=== PATIENT | male | born 1945 | race Caucasian/White ===

== ENCOUNTER → 2017-07-07 08:03 | Outpatient (CLI) | payer MEDICARE, OTHER, SELFPAY ==
--- NOTE | 2017-07-07 13:31 | NEURO ---
NCS and/or EMG Patient Report Ordering Doctor: Tunde Beard DATE OF SERVICE: 07/07/17 Ignacio Barron is a 72-year-old male presents for electrodiagnostic testing of the right upper limb. He has chief complaint of pain and numbness around the right wrist and hand. Letter diagnostic findings: On nerve conduction study, right median motor nerve demonstrates normal distal latency, amplitude and conduction velocity. Normal right ulnar motor response, including flexion across the elbow. Normal right ulnar and median F waves. Normal sensory responses are noted. On needle EMG, all muscles tested in the right upper limb show no evidence of denervation with normal motor unit action potentials. Electrodiagnostic impression: This is a normal study of the right upper limb. There is no electrodiagnostic evidence for peripheral neuropathy, including carpal tunnel or cubital tunnel syndrome. There is no electrodiagnostic evidence for cervical radiculopathy. If there are any further questions, please do not hesitate to contact me.
== END ==
PROVIDERS: Family Provider Preventive Medicine Occupational Medicine; PCP Preventive Medicine Occupational Medicine; Visit Provider Preventive Medicine Occupational Medicine
DX: G56.01 Carpal tunnel syndrome, right upper limb (principal); M79.601 Pain in right arm; M25.541 Pain in joints of right hand; R20.2 Paresthesia of skin; R20.0 Anesthesia of skin
CPT/HCPCS: 95886; 95909

== ENCOUNTER → 2017-10-25 11:52 | Outpatient (CLI) | payer MEDICARE, OTHER, SELFPAY ==
[2017-10-25 14:16] LABS: Absolute Neutrophil Count 4.1 X10^3/uL (2.0-7.7); Basophil# 0.03 X10^3/uL; Basophil% 0.5 % (0-1); Eosinophil# 0.09 X10^3/uL; Eosinophils% 1.6 % (0-5); Hematocrit 40.7 % (40-54); Hemoglobin 13.3 g/dl (13.0-16.5); Lymphocyte % 17.8 % (19-41); Mean Corp Hgb Conc 32.7 g/gl (32-36); Mean Corpuscular Hgb 29.8 pg (27.0-32.0); Mean Corpuscular Volume 91.1 fL (80-94); Mean Platelet Vol. 10.8 fl (6.2-12.0); Monocyte# 0.46 X10^3/uL; Monocyte% 8.2 % (0-10); Neutrophil # 4.05 X10^3/uL (2.7-7.7); Neutrophil % 71.9 % (47-70); POSITIVE COUNT NO; POSITIVE DIFFERENTIAL NO; POSITIVE MORPHOLOGY NO; Platelet Count 170 K/mm3 (150-450); RBC Distribution Width CV 13.8 % (11.6-14.6); RBC Distribution Width SD 45.5 fl (35.1-43.9); Red Blood Count 4.47 M/mm3 (4.6-6.2); White Blood Count 5.6 K/mm3 (4.4-11.0)
[2017-10-25 14:21] LABS: Erythrocyte Sedimentation Rate 7 mm/hr (0-20)
[2017-10-25 14:25] LABS: AST(SGOT) 21 U/L (15-37); Alanine Aminotransfer ALT/SGPT 33 U/L (16-61); Alkaline Phosphatase 75 U/L (45-117); Anion Gap 9 (5-15); BUN 23 mg/dL (7-18); BUN/Creat Ratio 19.2 RATIO (10-20); Calcium,Total 9.1 mg/dL (8.5-10.1); Chloride 107 mmol/L (98-107); EST Glomerular Filtration Rate 63 mL/min (>60); Est Glom Filt Rate - Afr Amer 77 mL/min (>60); Globulin 3.9 g/dL (2.2-4.2); Glucose 93 mg/dL (74-106); Potassium 3.9 mmol/L (3.5-5.1); Protein, Total 7.9 g/dL (6.4-8.2); Rheumatoid Factor < 10.0 IU/mL (<15); Sodium Level 144 mmol/L (136-145)
[2017-10-27 12:07] LABS: ANTINUCLEAR ANTIBODIES DIRECT Positive (Negative)
[2017-10-29 11:23] LABS: CCP IgG Antibodies 6 units (0-19); HEPATITIS B SURFACE AG Negative (Negative); HLA B27 Negative (.); Hep B Surface Antibodies Non Reactive (.); Hep C Antibodies <0.1 s/co ratio (0.0-0.9)
== END ==
PROVIDERS: Family Provider Preventive Medicine Occupational Medicine; PCP Preventive Medicine Occupational Medicine; Visit Provider Internal Medicine Rheumatology
DX: M06.4 Inflammatory polyarthropathy (principal)
CPT/HCPCS: 36415; 72170; 80053; 81374; 85025; 85652; 86038; 86140; 86200; 86431; 86706; 86803; 87340

== ENCOUNTER → 2017-11-05 13:04 | Outpatient (CLI) | payer MEDICARE, OTHER, SELFPAY ==
[2017-11-05 14:18] LABS: Color, Urine Yellow (Yellow); Glucose, Dipstick Normal (Normal); Ketone-Dipstick Negative (Negative); Leukocyte Esterase-Dipstick 500 /ul (Negative); Nitrite-Dipstick Negative (Negative); Occult Blood-Urine 50 /ul (Negative); Protein-Dipstick 30 mg/dl (Negative); Specific Gravity, Urine 1.015 (1.002-1.030); Urine Bilirubin Dipstick Negative (Negative); Urine Clarity Sl. Cloudy (Clear); Urine Urobilinogen Normal (Normal)
[2017-11-05 14:31] LABS: Protein, Urine (Random) 32.3 mg/dL (<11.9); Protein:Creat Ratio 432 mg/g CRE (0-200)
[2017-11-06 08:55] LABS: Complement C3 149 mg/dL (82-167)
[2017-11-08 22:08] LABS: Anti-Jo <0.2 AI (0.0-0.9); Anti-Scleroderma-70 AB <0.2 AI (0.0-0.9); SJOGREN'S Anti-SS-A test < 0.2 AI (0.0-0.9); SJOGREN'S Anti-SS-B test < 0.2 AI (0.0-0.9); Smith Ab <0.2 AI (0.0-0.9)
[2017-11-09 10:30] LABS: Anti-Centromere B Ab <0.2 AI (0.0-0.9); Anti-dsDNA Ab 5 IU/mL (0-9)
== END ==
PROVIDERS: Family Provider Preventive Medicine Occupational Medicine; PCP Preventive Medicine Occupational Medicine; Visit Provider Internal Medicine Rheumatology
DX: M06.4 Inflammatory polyarthropathy (principal); R76.8 Other specified abnormal immunological findings in serum; M21.40 Flat foot [pes planus] (acquired), unspecified foot
CPT/HCPCS: 36415; 81002; 82570; 84156; 86160; 86225; 86235

== ENCOUNTER → 2018-02-21 08:45 | Outpatient (CLI) | payer MEDICARE, OTHER, SELFPAY ==
--- NOTE | 2018-02-21 08:48 | AAVD_ITS ---
Reason For Study: AAA Aorta Measurements Aorta Doppler Measurements Proximal aorta measures2.0 x 2.0cm. in cross- Peak systolic flow velocities within the proximal sectional axis. aorta measure 70.2 cm/sec. Proximal aorta measures2.0cm. in longitudinal Peak systolic flow velocities within the mid aorta axis. measure 74.8 cm/sec. Mid aorta measures1.7 x 1.8cm. in cross-sectional Peak systolic flow velocities within the distal axis. aorta measure 66.6 cm/sec. Mid aorta measures1.7cm. in longitudinal axis. Distal aorta measures1.8 x 1.8cm. in cross- sectional axis. Distal aorta measures1.7cm. in longitudinal axis. Left Iliac Artery Left iliac artery measures 1.0 cm. in the longitudinal axis. Left iliac artery measures 1.0 x 1.1 cm. in the cross-sectional axis. Peak systolic velocity in the left iliac artery measures 90.3 cm/sec. Right Iliac Artery Right iliac artery measures 1.1 cm. in the longitudinal axis. Right iliac artery measures 1.1 x 1.0 cm. in the cross-sectional axis. Peak systolic velocity in the right iliac artery measures 106.0 cm/sec. Procedure Aorta IVC Iliac vasculature or bypass grafts [id number]. Technically difficult due to bowel gas. Exam performed in department. Interpretation Summary The dimensions of the intra-abdominal aorta are normal, without evidence of aneurysmal dilatation. The iliac arteries are also normal in size bilaterally. The intra-abdominal aorta and iliac arteries are patent, demonstrating normal, pulsatile arterial flow and peak systolic velocities. Ordering Physician: Lulu Moreno Referring Physician: Lulu Moreno Performed By: Shweta Wetzel RVT
== END ==
PROVIDERS: Family Provider Preventive Medicine Occupational Medicine; PCP Preventive Medicine Occupational Medicine; Referring Provider Physician Assistant Medical; Visit Provider Physician Assistant Medical
DX: I10 Essential (primary) hypertension (principal); I71.4 Abdominal aortic aneurysm, without rupture
CPT/HCPCS: 93978

== ENCOUNTER → 2018-04-07 11:58 | Outpatient (CLI) | payer MEDICARE, OTHER, SELFPAY ==
[2018-02-14 09:37] VITALS: BMI 35.6
[2018-04-07 13:20] LABS: Anion Gap 6 (5-15); BUN 17 mg/dL (7-18); BUN/Creat Ratio 15.2 RATIO (10-20); Chloride 108 mmol/L (98-107); Creatinine, Serum 1.12 mg/dL (0.70-1.30); EST Glomerular Filtration Rate 69 mL/min (>60); Est Glom Filt Rate - Afr Amer 83 mL/min (>60); Glucose 80 mg/dL (74-106); Potassium 3.6 mmol/L (3.5-5.1); Sodium Level 142 mmol/L (136-145)
== END ==
PROVIDERS: Family Provider Preventive Medicine Occupational Medicine; PCP Preventive Medicine Occupational Medicine; Referring Provider Urology; Visit Provider Urology
DX: N31.9 Neuromuscular dysfunction of bladder, unspecified (principal)
CPT/HCPCS: 36415; 80048

== ENCOUNTER → 2018-04-11 09:48 | Outpatient (CLI) | payer MEDICARE, OTHER, SELFPAY ==
--- NOTE | 2018-04-11 09:53 | US_ITS ---
STUDY: RENAL ULTRASOUND - COMPLETE REASON FOR EXAM: Male, 72 years old. Neurogenic bladder TECHNIQUE: Ultrasound evaluation of the kidneys was performed with real-time and static whatley-scale imaging. COMPARISON: 05/10/2015 FINDINGS: RIGHT KIDNEY: Normal location of the right kidney, which is normal in size. The right kidney measures 12.2 x 6.2 x 4.6 cm. There is a normal cortex of the right kidney. The renal cortex measures 1.7 cm. 16 mm cyst. There are no right renal calculi. There is no right hydronephrosis. DISTAL RIGHT URETER: There is non-visualization of the distal right ureter. There is no demonstrated right ureterovesical junction calculus. There is a visualized right ureteral jet. LEFT KIDNEY: Normal location of the left kidney, which is normal in size. The left kidney measures 12.6 x 6.5 x 4.7 cm. There is a normal cortex of the left kidney. The renal cortex measures 1.6 cm. Multiple cysts, the largest measuring 16 mm. There are no left renal calculi. There is no left hydronephrosis. DISTAL LEFT URETER: There is non-visualization of the distal left ureter. There is no demonstrated left ureterovesical junction calculus. There is a visualized left ureteral jet. BLADDER: The distended urinary bladder has a volume of 277.5 ml. A right-sided bladder diverticulum is noted that measures approximately 18 mm. There is a normal wall thickness of the distended urinary bladder. There is no demonstrated mass within the urinary bladder. There are no demonstrated bladder calculi. Prostatomegaly is noted. US/Kidney and Bladder IMPRESSION: 18 mm right-sided bladder diverticulum. No bladder wall thickening. Prostatomegaly. Bilateral renal cysts. Electronically Signed: Kevin Liu MD at 13:09 EST Tel , Service support ,
== END ==
PROVIDERS: Family Provider Preventive Medicine Occupational Medicine; PCP Preventive Medicine Occupational Medicine; Referring Provider Urology; Visit Provider Urology
DX: N31.9 Neuromuscular dysfunction of bladder, unspecified (principal)
CPT/HCPCS: 76770

== ENCOUNTER 2018-10-06 09:02 | Outpatient (RCR) | payer SELFPAY ==
[2018-07-20 11:17] VITALS: BMI 36.5
== END 2018-10-12 23:59 ==
LOC: NS 09:02
PROVIDERS: Family Provider Preventive Medicine Occupational Medicine; PCP Preventive Medicine Occupational Medicine
DX: R69 Illness, unspecified (principal); Z71.3 Dietary counseling and surveillance
CPT/HCPCS: 97802

== ENCOUNTER 2018-11-02 10:00 | Outpatient (RCR) | payer SELFPAY ==
[2018-07-20 11:17] VITALS: BMI 36.5
== END 2018-11-12 23:59 ==
LOC: NS 10:00
PROVIDERS: Family Provider Preventive Medicine Occupational Medicine; PCP Preventive Medicine Occupational Medicine
DX: R69 Illness, unspecified (principal); Z71.3 Dietary counseling and surveillance
CPT/HCPCS: 97803

== ENCOUNTER 2018-12-05 10:00 | Outpatient (RCR) | payer SELFPAY ==
[2018-07-20 11:17] VITALS: BMI 36.5
== END 2018-12-12 23:59 ==
LOC: NS 10:00
PROVIDERS: Family Provider Preventive Medicine Occupational Medicine; PCP Preventive Medicine Occupational Medicine
DX: R69 Illness, unspecified (principal); Z71.3 Dietary counseling and surveillance
CPT/HCPCS: 97803

== ENCOUNTER 2019-01-02 11:09 | Outpatient (RCR) | payer SELFPAY ==
[2018-07-20 11:17] VITALS: BMI 36.5
== END 2019-01-12 23:59 ==
LOC: NS 11:09
PROVIDERS: Family Provider Preventive Medicine Occupational Medicine; PCP Preventive Medicine Occupational Medicine
DX: Z71.3 Dietary counseling and surveillance (principal)
CPT/HCPCS: 97803

== ENCOUNTER 2019-03-20 10:18 | Outpatient (RCR) | payer SELFPAY ==
[2018-07-20 11:17] VITALS: BMI 36.5
[2019-01-23 10:41] VITALS: BMI 35.6
== END 2019-04-14 23:59 ==
LOC: NS 10:18
PROVIDERS: Family Provider Preventive Medicine Occupational Medicine; PCP Preventive Medicine Occupational Medicine
DX: Z71.3 Dietary counseling and surveillance (principal)
CPT/HCPCS: 97803

== ENCOUNTER 2019-03-29 11:49 | Inpatient (IN) | payer MEDICARE, OTHER, SELFPAY ==
[2019-01-23 10:41] VITALS: BMI 35.6
[2019-03-29] VITALS (10 sets, daily range): BP systolic 139–170; BP diastolic 74–80; PULSE 68–82; RESP 16–23; TEMP 36.8–39.4; O2SAT 94–97; BMI 34.4; BMI 33.6
--- NOTE | 2019-03-29 12:45 | RAD_ITS ---
STUDY: X-RAY CHEST REASON FOR EXAM: Male, 73 years old. INCREASED SHORTNESS OF BREATH, FEVER SINCE YESTERDAY EVENING TECHNIQUE: AP and lateral views of the chest. COMPARISON: Comparison is made with prior study dated September 04, 2016. FINDINGS: EKG electrodes are seen. The lungs are clear and expanded. There is no demonstrated pleural abnormality. There is moderate cardiac enlargement. A left-sided dual-chamber pacemaker is seen. Normal mediastinum and aaliyah. Normal visualized pulmonary arteries. There is atherosclerotic tortuosity of the aortic arch and descending thoracic aorta. There are degenerative changes of the visualized thoracic spine. The patient is status post laminectomy and fusion in the lower cervical spine. There is no demonstrated abnormality of the visualized soft tissue structures of the upper abdomen. RAD/Chest PA and Lateral IMPRESSION: Cardiomegaly. The lungs are clear. Electronically Signed: Umang Guerra, at 13:57 EST , Service support ,
--- NOTE | 2019-03-29 12:47 | ED.VISSUMM ---
- ER Visit Summary Date of Service: 03/29/19 Chief Complaint: Intermittent fever for 1 month History of Present Illness: The patient is a 73 M 3 of prior neck fracture with lower extremity paraplegia. From a prior fall. Patient's last month has been fighting a fever. Yesterday it was a high as it is been at 102. He thinks he may have another urinary tract infection. He gets those from time to time and needs a straight cath himself. He denies any cough. He denies any abdominal pain. He denies any rash. He denies any vomiting or diarrhea. Denies any shortness of breath. Physical Examination: Older male no acute distress vital signs are stable afebrile. Currently his temperature is 98.2. Pulse ox 97% on room air no hypoxia. Family at bedside. H EENT exam unremarkable. Neck nontender no lymphadenopathy. Lungs clear to auscultation bilaterally. Heart regular rhythm no murmur. Abdomen soft nontender. Normal bowel sounds no peritoneal signs. Extremities upper extremities are unremarkable with normal frame stripper and crusher strength. Lower extremities have severe weakness bilaterally. Neurologically is awake and alert. With lower extremity weakness from a prior neck fracture. Test Results: [] Emergency Department Course and Treatment: Patient be worked up for fever. Chest x-ray labs and urinalysis along with cultures. Treatment Plan: [] Disposition: [] Impression: Acute fever History of paraplegia from a prior neck fracture This note was generated with marker.to dictation software. It may contain incorrect words, spelling, and punctuation that were not noted in review of the chart prior to signing ED Disposition - Plan for ED Patient: Referrals: Tunde Beard DO [Primary Care Provider] -
[2019-03-29] MEDS: 0.9% Normal Saline 1,000 ML 1000 ML IV (12:59)
[2019-03-29 13:13] LABS: Absolute Lymphocyte Count 1.15 X10^3/uL (0.83-4.51); Absolute Neutrophil Count 13.6 X10^3/uL (2.0-7.7); Basophil# 0.05 X10^3/uL; Basophil% 0.3 % (0-1); Eosinophil# 0.01 X10^3/uL; Eosinophils% 0.1 % (0-5); Hematocrit 41.9 % (40-54); Hemoglobin 13.7 g/dL (13.0-16.5); Lymphocyte # 1.15 X10^3/ul (4.0); Lymphocyte % 6.9 % (19-41); Mean Corp Hgb Conc 32.7 g/dL (32-36); Mean Corpuscular Volume 88.6 fL (80-94); Mean Platelet Vol. 10.1 fl (6.2-12.0); Monocyte# 1.83 X10^3/uL; Monocyte% 10.9 % (0-10); NRBC Flagged by Analyzer 0 % (0-5); Neutrophil # 13.61 X10^3/uL (2.7-7.7); Neutrophil % 81.3 % (47-70); POSITIVE DIFFERENTIAL YES; Platelet Count 174 K/mm3 (150-450); RBC Distribution Width CV 14.5 % (11.6-14.6); RBC Distribution Width SD 46.5 fl (35.1-43.9); Red Blood Count 4.73 M/mm3 (4.6-6.2); White Blood Count 16.7 K/mm3 (4.4-11.0)
[2019-03-29 13:22] LABS: Mucous, Urine 0 SEEN /hpf (<or=2+)
[2019-03-29 13:26] LABS: Color, Urine Yellow (Yellow); Glucose, Dipstick Normal (Normal); Ketone-Dipstick Negative (Negative); Leukocyte Esterase-Dipstick 500 /ul (Negative); Nitrite-Dipstick Positive (Negative); Occult Blood-Urine 150 /ul (Negative); Protein-Dipstick 30 mg/dl (Negative); Specific Gravity, Urine 1.015 (1.002-1.030); Urine Bilirubin Dipstick Negative (Negative); Urine Clarity Cloudy (Clear); Urine Urobilinogen Normal (Normal)
[2019-03-29 13:30] LABS: Differential Indicated SCAN CRITERIA MET
[2019-03-29 13:33] LABS: Anion Gap 5 (5-15); BUN 18 mg/dL (7-18); BUN/Creat Ratio 13.8 RATIO (10-20); Calcium,Total 9.1 mg/dL (8.5-10.1); Chloride 106 mmol/L (98-107); EST Glomerular Filtration Rate 58 mL/min (>60); Est Glom Filt Rate - Afr Amer 70 mL/min (>60); Estimated Creatinine Clearance 51.36 ml/min; Glucose 107 mg/dL (74-106); Potassium 3.5 mmol/L (3.5-5.1); Sodium Level 138 mmol/L (136-145)
[2019-03-29 13:36] LABS: Platelet Estimate ADEQUATE (ADEQ); Red Cell Morphology NORM C+C NORMAL (NORM C&C)
[2019-03-29 13:38] LABS: White Blood Cells 25-50 SEEN /hpf (0-5)
[2019-03-29 13:39] LABS: Bacteria 4+ /hpf (None Seen); Red Blood Cells-Urine 0-5 SEEN /hpf (0-5); Squamous Epithelial Cells - UA 0-5 SEEN /hpf (0-5)
[2019-03-29 13:39] LABS: Lactic Acid 1.3 mmol/L (0.4-1.9)
--- NOTE | 2019-03-29 15:59 | NURSING ---
DR DENIA STODDARD
--- NOTE | 2019-03-29 16:01 | HP.PCM_ITS ---
History of Present Illness Date of Admission: 03/29/19 Chief Complaint: fever The patient is a 73 year old M with a past medical history as listed which includes paraplegia of the lower extremities due to traumatic neck fracture from a previous fall. Patient was admitted through the ED on 03/29/2019 with a com plaint of fever which he says has been going on for about a month but worsened 1 day prior to admission and was at a peak of 102 Fahrenheit. He denied any chills and denied any cough or chest pain or palpitations or dizziness. He did admit to some nausea and also admitted to burning with urination as well as frequency. He states he feels like how he usually does when he gets a UTI. Admission in the ED, vitals were significant for blood pressure 160/74 and respiratory rate of 23 at time of review. Chemistry was unremarkable and CBC showed hemoglobin of 16.7 but was otherwise unremarkable. Chest x-ray showed no acute cardiopulmonary process and urinalysis done showed 4+ bacteria. He has been admitted to be managed for sepsis due to UTI.] Past Medical History Past Medical History (Chronic Problems): Chronic Problems (Last Reviewed 01/23/19 @ 10:43 by Lulu Rohca) Essential hypertension (Chronic) AAA (abdominal aortic aneurysm) without rupture (Chronic) History of permanent cardiac pacemaker placement (Chronic) Implant, DDDR MR compatible 02/19/16 Paraplegia (Chronic) Anemia (Chronic) Central cord syndrome (Chronic) Subluxation of C6-C7 cervical vertebrae (Chronic) remote 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.9) (Chronic) Medical History: Medical History (Last Reviewed 01/23/19 @ 10:43 by Lulu Rocha) Essential hypertension (Chronic) I10 Sick sinus syndrome (Resolved) I49.5 Central cord syndrome (Chronic) S14.129A Family history of hypertension Z82.49 History of DVT (deep vein thrombosis) Z86.718 History of spinal cord injury Z87.828 BPH (benign prostatic hypertrophy) N40.0 Cervical spinal stenosis M48.02 Degenerative joint disease (DJD) of lumbar spine M47.816 Depression F32.9 Neurogenic bladder N31.9 Premature ventricular contractions I49.3 Spinal cord injury [id number] Allergies No Known Allergies Allergy (Verified 01/23/19 10:42) Home Medications: Ambulatory Orders Medication Instructions Recorded Lisinopril [Zestril] 20 mg PO DAILY 06/24/15 Tamsulosin HCl [Flomax] 0.4 mg PO QHS 06/24/15 ascorbic acid (vitamin C) 1,000 mg 1 g PO DAILY tab 02/14/18 tablet gabapentin 300 mg capsule 600 mg PO BIDCM cap 02/14/18 vitamin E (dl, acetate) 400 unit 400 unit PO DAILY 02/14/18 capsule nifedipine 30 mg tablet,extended 30 mg PO DAILY #30 tab 07/01/18 release Cholecalciferol (Vitamin D3) 400 unit PO DAILY 03/29/19 [Vitamin D3] Citalopram [Celexa] 20 mg PO QHS 03/29/19 Surgical History: Surgical History (Last Reviewed 01/23/19 @ 10:43 by Lulu Rocha) History of permanent cardiac pacemaker placement (Chronic) Z95.0 Implant, DDDR MR compatible 02/19/16 S/P cervical spinal fusion Z98.1 History of neck surgery Z98.890 repair of broken neck after fall Surgical History: pacemaker implantation, TURP, - - cervical spinal surgery due to injury Psychiatric History: Depression Lives: With Family Smoking Status: Never smoker Alcohol: None Drugs: None - *Family History Maternal Family History: Family History (Last Reviewed 01/23/19 @ 10:43 by Lulu Rocha) Mother Breast cancer Cancer Sister Diabetes Hypertension CHF (congestive heart failure) Kidney disease Sister CHF (congestive heart failure) Cardiac defibrillator in situ Other Family history of hypertension History Items: Cancer - age76, breast Paternal Family History: Family History (Last Reviewed 01/23/19 @ 10:43 by Lulu Rocha) Mother Breast cancer Cancer Sister Diabetes Hypertension CHF (congestive heart failure) Kidney disease Sister CHF (congestive heart failure) Cardiac defibrillator in situ Other Family history of hypertension History Items: No pertinent history - not involved with pt Review of Systems Constitutional: Reports: Anorexia, Fever, Malaise, Weakness, Fatigue. Denies: Chills Eyes: Denies: Blurred vision HEENT: Denies: Head Aches, Sinus Congestion, Sinus Drainage Cardiovascular: Denies: Chest Pain, Palpitations Respiratory: Denies: Cough, Shortness of breath at rest, Sputum production Gastrointestinal: Reports: Nausea. Denies: Abdominal Pain, Vomiting Genitourinary: Reports: Dysuria, Frequency. Denies: Retention, Urgency Musculoskeletal: Denies: Joint Pain, Joint Tenderness Skin: Denies: Rash, Wounds Neurological: Denies: Numbness, Tingling, Focal weakness Psychiatric: Denies: Anxiety, Depression, Homicidal Ideations, Suicidal Ideations Hematologic/ Lymphatic: Denies: Easy Bruising, Easy Bleeding VTE Information - Inpt Only VTE Present on Admission: No VTE Pharm Prophylaxis ordered?: Yes - Physical Exam Vitals/I&O's: Vital Signs Temp Pulse Resp BP Pulse Ox 98.5 F 72 23 H 160/74 H 95 03/29/19 13:22 03/29/19 13:22 03/29/19 13:22 03/29/19 13:22 03/29/19 13:22 Oxygen Delivery Method Room Air Weight: 233 lb Body Mass Index (BMI) 34.4 General: Alert, Oriented x3, Cooperative, No apparent distress HEENT: Atraumatic, PERRLA, EOMI, Normocephalic Oral: Dry Mucosa Neck: Supple, No JVD, Negative Carotid Bruits Lungs: Clear to auscultation, Normal air movement, No rhonchi, No wheeze, Tachypneic Cardiovascular: Regular rate, Regular Rhythm, Normal S1, Normal S2, No murmurs Abdomen: Bowel Sounds Present, Soft, Non Tender, Non-Distended, No Hepato- splenomegaly Extremities: No clubbing, No cyanosis, No edema, Capillary Refill Less than 3 Seconds Skin: No rashes, No breakdown Musculoskeletal: No Tenderness to Palpation of Joints or Extremities Lymphatic: No Cervical, Supraclavicular, or Inguinal Adenopathy Neurological: Cranial nerves II-XII grossly intact, - - power in LEs is 3/5 (from chronic paraplegia due to traumatic neck fracture from fall) Psych/Mental Status: Normal Affect, Appropriate, Alert and oriented to time, place, person, mood and affect Laboratory Results 03/29/19 13:00: WBC 16.7 H, RBC 4.73, Hgb 13.7, Hct 41.9, MCV 88.6, MCH 29.0, MCHC 32.7, RDW Std Deviation 46.5 H, RDW Coeff of Donna 14.5, Plt Count 174, MPV 10.1, Immature Gran % (Auto) 0.500, Neut % (Auto) 81.3 H, Lymph % (Auto) 6.9 L, [place] % (Auto) 10.9 H, Eos % (Auto) 0.1, Baso % (Auto) 0.3, Absolute Neuts (auto) 13.6 H, Absolute Lymphs (auto) 1.15, Nucleated RBC % 0, Diff Path Review July, Platelet Estimate ADEQUATE, RBC Morphology NORM C+C 03/29/19 13:00: Sodium 138, Potassium 3.5, Chloride 106, Carbon Dioxide 27.0, Anion Gap 5, BUN 18, Creatinine 1.30, Estim Creat Clear Calc 51.36, Est GFR (MDRD) Af Amer 70, Est GFR (MDRD) Non-Af 58 L, BUN/Creatinine Ratio 13.8, Glucose 107 H, Calcium 9.1 03/29/19 13:00: Lactic Acid 1.3 03/29/19 13:17: Urine Color Yellow, Urine Clarity Cloudy, Urine pH 6.0, Ur Specific [place] 1.015, Urine Protein 30 H, Urine Glucose (UA) Normal, Urine Ketones Negative, Urine Occult Blood 150 H, Urine Nitrite Positive H, Urine Bilirubin Negative, Urine Urobilinogen Normal, Ur Leukocyte Esterase 500 H, Urine RBC 0-5 SEEN, Urine WBC 25-50 SEEN, Ur Squamous Epith Cells 0-5 SEEN, Urine Bacteria 4+, Urine Mucus 0 SEEN Diagnostic Data Chest X-Ray 03/29/19 12:45 IMPRESSION: Cardiomegaly. The lungs are clear. Electronically Signed: Umang Mari, at 13:57 EST , Service support , Current Medications Ceftriaxone Sodium (Rocephin) 1 gm in 50 mls @ 100 mls/hr IV X1 ONE Stop: 03/29/19 16:25 Assessment/Plan All Active Problems (Last Reviewed 01/23/19 @ 10:43 by Lulu Rocha) Sick sinus syndrome (Resolved) Edema (Acute) Syncope (Acute) Infection with ESBL Klebsiella oxytoca (Resolved) UTI (urinary tract infection) (Resolved) UTI (urinary tract infection) (Resolved) 73-year-old male admitted with a complaint of fever and found to have UTI. 1. Sepsis due to UTI * admit to PCU with telemetry * SIRS criteria-2/4 (tachypnea and leucocytosis) * UA showed 4+ bacteria * hydrate gently with IVF NS @ 150cc/'hr * IV ceftriaxone * check urine cultures. get blood cultures * 2. Hypertension:on lisinopril and nifedipine. 3. History of paraplegia due to traumatic neck fracture * consult PT/OT * has episodic urine retention due to paraplegia; will relieve with straight cath prn * DVT prophylaxis: lovenox Code status: full code * Patient and family counseled extensively about different types of CODE STATUS including full code, DNR CCA and DNR CCA. Patient elects to be full code. * Total [id number] time 16 minutes. Code Visit Inpatient E&M: 58007 Init Hosp L3 Procedures: 72711 Advncd Care Plan 30 Min
--- NOTE | 2019-03-29 16:08 | NURSING ---
PCU SEPSIS, UTI KORAM
[2019-03-29] MEDS: Ceftriaxone 1 GM/50 ML BAG IV ×2 (16:43→21:44)
[2019-03-29] MEDS: Acetaminophen 325 MG Tablet 650 MG PO (17:37)
[2019-03-29] MEDS: 0.9% Normal Saline 1,000 ML 150 ML IV (17:56)
[2019-03-29] MEDS: Gabapentin 600 MG Tablet PO (21:43)
[2019-03-29] MEDS: Tamsulosin HCl 0.4 MG Capsule PO (21:43)
[2019-03-29] MEDS: Citalopram 20 MG Tablet PO (21:43)
[2019-03-30] VITALS (12 sets, daily range): BP systolic 155–177; BP diastolic 70–82; PULSE 66–90; RESP 16–22; TEMP 36.4–39.3; O2SAT 92–96
[2019-03-30] MEDS: 0.9% Normal Saline 1,000 ML 150 ML IV ×2 (01:19→08:08)
[2019-03-30] MEDS: Acetaminophen 325 MG Tablet 650 MG PO (03:39)
[2019-03-30 06:31] LABS: Absolute Lymphocyte Count 0.86 X10^3/uL (0.83-4.51); Absolute Neutrophil Count 12.8 X10^3/uL (2.0-7.7); Basophil# 0.05 X10^3/uL; Basophil% 0.3 % (0-1); Eosinophil# 0.01 X10^3/uL; Eosinophils% 0.1 % (0-5); Hematocrit 36.4 % (40-54); Hemoglobin 12.1 g/dL (13.0-16.5); Lymphocyte # 0.86 X10^3/ul (4.0); Lymphocyte % 5.7 % (19-41); Mean Corp Hgb Conc 33.2 g/dL (32-36); Mean Corpuscular Hgb 29.4 pg (27.0-32.0); Mean Corpuscular Volume 88.3 fL (80-94); Mean Platelet Vol. 10.6 fl (6.2-12.0); Monocyte# 1.15 X10^3/uL; Monocyte% 7.7 % (0-10); NRBC Flagged by Analyzer 0 % (0-5); Neutrophil # 12.84 X10^3/uL (2.7-7.7); Neutrophil % 85.5 % (47-70); Platelet Count 139 K/mm3 (150-450); RBC Distribution Width CV 14.5 % (11.6-14.6); RBC Distribution Width SD 46.6 fl (35.1-43.9); Red Blood Count 4.12 M/mm3 (4.6-6.2)
[2019-03-30 07:05] LABS: Anion Gap 8 (5-15); BUN 13 mg/dL (7-18); BUN/Creat Ratio 12.7 RATIO (10-20); Calcium,Total 8.5 mg/dL (8.5-10.1); Chloride 112 mmol/L (98-107); Creatinine, Serum 1.02 mg/dL (0.70-1.30); EST Glomerular Filtration Rate 76 mL/min (>60); Est Glom Filt Rate - Afr Amer 92 mL/min (>60); Estimated Creatinine Clearance 65.46 ml/min; Glucose 100 mg/dL (74-106); Potassium 3.1 mmol/L (3.5-5.1); Sodium Level 141 mmol/L (136-145)
[2019-03-30] MEDS: Gabapentin 600 MG Tablet PO (08:10)
[2019-03-30] MEDS: Ceftriaxone 1 GM/50 ML BAG IV ×2 (09:45→22:35)
[2019-03-30] MEDS: Ascorbic Acid 500 MG Tablet 1000 MG PO (09:48)
[2019-03-30] MEDS: Lisinopril 20 MG Tablet PO (09:49)
[2019-03-30] MEDS: Vitamin E 400 UNITS Capsule PO (09:49)
[2019-03-30] MEDS: Enoxaparin 40 MG/0.4 ML Syringe SC (09:50)
--- NOTE | 2019-03-30 10:56 | PN_ITS ---
Reason for Visit: Sepsis and abdominal distention Subjective: Patient is a 74-year-old gentleman with past medical history significant for neck trauma with subsequent paraplegia brought to the emergency department with fever. Work-up was consistent with sepsis secondary to UTI. Patient was seen on the morning of 03/30/2019 complaining of abdominal disc comfort. Physical examination demonstrated significant abdominal distention and assessment of ileus/small bowel obstruction/colonic obstruction made an order was given for an NG tube to be placed and subsequent imaging studies ordered for further evaluation. Objective: GENERAL: Appears to be in some distress HEENT: Atraumatic; EYES; Anicteric, Normal Conjunctiva NECK; supple, normal thyroid, RESPIRATORY: Diminished to auscultation CARDIOVASCULAR: Regular S1 S2, GI: Currently distended tympanitic to percussion : No Renal angle tenderness; EXTREMITIES: No edema, no clubbing, MUSCULOSKELETAL: no muscle waisting NEURO: Awake; SKIN: No Rash PSYCH; Flat affect Vitals/I&O's: Vital Signs Temp Pulse Resp BP Pulse Ox 98.8 F 68 16 161/82 H 94 03/30/19 08:00 03/30/19 08:00 03/30/19 08:00 03/30/19 08:00 03/30/19 08:00 Oxygen Delivery Method Room Air Weight: 103.4 kg Body Mass Index (BMI) 33.6 Intake and Output for Last 24 Hours 03/28/19 03/29/19 03/30/19 23:59 23:59 23:59 Intake Total 1912.5 / 1912.5 1877.5 / 1877.5 Output Total 800 / 800 850 / 850 Balance 1112.5 / 1112.5 1027.5 / 1027.5 Laboratory Results 03/29/19 13:00: WBC 16.7 H, RBC 4.73, Hgb 13.7, Hct 41.9, MCV 88.6, MCH 29.0, MCHC 32.7, RDW Std Deviation 46.5 H, RDW Coeff of Donna 14.5, Plt Count 174, MPV 10.1, Immature Gran % (Auto) 0.500, Neut % (Auto) 81.3 H, Lymph % (Auto) 6.9 L, [place] % (Auto) 10.9 H, Eos % (Auto) 0.1, Baso % (Auto) 0.3, Absolute Neuts (auto) 13.6 H, Absolute Lymphs (auto) 1.15, Nucleated RBC % 0, Diff Path Review July, Platelet Estimate ADEQUATE, RBC Morphology NORM C+C 03/29/19 13:00: Sodium 138, Potassium 3.5, Chloride 106, Carbon Dioxide 27.0, Anion Gap 5, BUN 18, Creatinine 1.30, Estim Creat Clear Calc 51.36, Est GFR (MDRD) Af Amer 70, Est GFR (MDRD) Non-Af 58 L, BUN/Creatinine Ratio 13.8, Glucose 107 H, Calcium 9.1 03/29/19 13:00: Lactic Acid 1.3 03/29/19 13:17: Urine Color Yellow, Urine Clarity Cloudy, Urine pH 6.0, Ur Specific [place] 1.015, Urine Protein 30 H, Urine Glucose (UA) Normal, Urine Ketones Negative, Urine Occult Blood 150 H, Urine Nitrite Positive H, Urine Bilirubin Negative, Urine Urobilinogen Normal, Ur Leukocyte Esterase 500 H, Urine RBC 0-5 SEEN, Urine WBC 25-50 SEEN, Ur Squamous Epith Cells 0-5 SEEN, Urine Bacteria 4+, Urine Mucus 0 SEEN 03/30/19 05:27: WBC 15.0 H, RBC 4.12 L, Hgb 12.1 L, Hct 36.4 L, MCV 88.3, MCH 29.4, MCHC 33.2, RDW Std Deviation 46.6 H, RDW Coeff of Donna 14.5, Plt Count 139 L, MPV 10.6, Immature Gran % (Auto) 0.700, Neut % (Auto) 85.5 H, Lymph % (Auto) 5.7 L, [place] % (Auto) 7.7, Eos % (Auto) 0.1, Baso % (Auto) 0.3, Absolute Neuts (auto) 12.8 H, Absolute Lymphs (auto) 0.86, Nucleated RBC % 0 03/30/19 05:27: Sodium 141, Potassium 3.1 L, Chloride 112 H, Carbon Dioxide 21.0, Anion Gap 8, BUN 13, Creatinine 1.02, Estim Creat Clear Calc 65.46, Est GFR (MDRD) Af Amer 92, Est GFR (MDRD) Non-Af 76, BUN/Creatinine Ratio 12.7, Glucose 100, Calcium 8.5 Current Medications Acetaminophen (Tylenol) 650 mg PO Q6H PRN PRN PRN Reason: HEADACHE/FEVER (T>100F) Last Admin: 03/30/19 03:39 Dose: 650 mg Documented by: Ascorbic Acid (Vitamin C) 1,000 mg PO DAILY [facility] Last Admin: 03/30/19 09:48 Dose: 1,000 mg Documented by: Citalopram Hydrobromide (Celexa) 20 mg PO QHS [facility] Last Admin: 03/29/19 21:43 Dose: 20 mg Documented by: Enoxaparin Sodium (Lovenox) 40 mg SC DAILY [facility] Last Admin: 03/30/19 09:50 Dose: 40 mg Documented by: Gabapentin (Neurontin) 600 mg PO BIDCM [facility] Last Admin: 03/30/19 08:10 Dose: 600 mg Documented by: Glucagon () 1 mg IM .X1 PRN PRN Reason: Hypoglycemia Sodium Chloride () 1,000 mls @ 150 mls/hr IV .Q6H40M [facility] Stop: 03/30/19 12:58 Last Admin: 03/30/19 08:08 Dose: 150 mls/hr Documented by: Ceftriaxone Sodium (Rocephin) 1 gm in 50 mls @ 100 mls/hr IV Q12 [facility] Last Admin: 03/30/19 09:45 Dose: 100 mls/hr Documented by: Dextrose (Dextrose 10%-Water) 250 mls @ 999 mls/hr IV .Q16M PRN; Protocol PRN Reason: HYPOGLYCEMIA Lidocaine HCl (Xylocaine 4% Sdv) 2 ml INHALATION X1 ONE Stop: 03/30/19 10:53 Lisinopril (Zestril) 20 mg PO DAILY [facility] Last Admin: 03/30/19 09:49 Dose: 20 mg Documented by: Nifedipine (Procardia Xl) 30 mg PO DAILY@2200 [facility] Ondansetron HCl (Zofran) 4 mg IV Q8H PRN PRN PRN Reason: NAUSEA/VOMITING Oxymetazoline HCl (Afrin (Bkc)) 2 spray NASAL X1 ONE Stop: 03/30/19 10:53 Sodium Chloride () 10 - 40 ml IV UD PRN PRN Reason: SALINE FLUSH Tamsulosin HCl (Flomax) 0.4 mg PO QHS [facility] Last Admin: 01/15/20 21:43 Dose: 0.4 mg Documented by: Vitamin E (Vitamin E) 400 units PO DAILY [facility] Last Admin: 03/30/19 09:49 Dose: 400 units Documented by: STROKE Vital Signs/Narrative: Vital Signs Temp Pulse Resp BP Pulse Ox 03/30/19 08:00 98.8 F 68 16 161/82 H 94 03/30/19 07:14 66 Medical Necessity - Tobacco Use Smoking Status: Never smoker Assessment/Plan All Active Problems (Last Reviewed 01/23/19 @ 10:43 by Lulu Rocha) Sick sinus syndrome (Resolved) Edema (Acute) Syncope (Acute) Infection with ESBL Klebsiella oxytoca (Resolved) UTI (urinary tract infection) (Resolved) UTI (urinary tract infection) (Resolved) Patient is a 74-year-old gentleman with past medical history significant for neck trauma with subsequent paraplegia brought to the emergency department with fever. Work-up was consistent with sepsis secondary to UTI. 1. Sepsis secondary to UTI secondary to use of PRN straight cath as a result of chronic urinary retention in view of patient underlying paraplegia ?Admitted to regular nursing floor managed with IV fluids, antibiotics and cultures sent with plans to adjust antibiotics based on culture result 2. Abdominal distention (differential diagnoses include ileus/small bowel obstruction/colonic obstruction ?Patient was seen on the morning of 03/30/2019 complaining of abdominal discomfort. Physical examination demonstrated significant abdominal distention Patient was kept n.p.o., an NG tube was inserted acute abdominal series ordered for subsequent evaluation. 3. Essential hypertension Blood pressure controlled on lisinopril and nifedipine did continue 4. Paraplegia following traumatic neck fracture ?Supportive care patient apparently has chronic urinary retention for which patient undergoes periodic straight cath as needed 5. Hypokalemia ?Corrected per protocol with subsequent BMPs ordered for monitoring 6. BPH ?Patient is on Flomax did continue 7. Peripheral neuropathy ?Patient is on gabapentin did continue 8. Depression Patient is on SSRI did continue 9. DVT prophylaxis ?On enoxaparin Code Visit Inpatient E&M: 36043 [facility] Hosp L3
[2019-03-30] MEDS: Lidocaine 4% 5 ML Ampul 2 ML INHALATION (11:25)
--- NOTE | 2019-03-30 11:40 | RAD_ITS ---
STUDY: X-RAY - ABDOMEN/PELVIS REASON FOR EXAM: Male, 73 years old. NG TUBE PLACEMENT TECHNIQUE: Single AP view of the abdomen / pelvis. COMPARISON: None. FINDINGS: The tip of the nasogastric tube is in the fundal portion of the stomach. Gas is seen throughout the hepatic flexure and transverse colon. RAD/Abdomen Single View (Portable) IMPRESSION: The tip of the nasogastric tube is seen within the fundal portion of the stomach. Electronically Signed: Umang Guerra, at 12:19 EST , Service support ,
[2019-03-30] MEDS: Oxymetazoline 0.05% 1 SPRAY SPRAY.BTL 2 SPRAY NASAL (11:41)
--- NOTE | 2019-03-30 11:44 | CPS ---
lidocaine aerosol rx given for NG insertion
--- NOTE | 2019-03-30 12:15 | CASEMGMT ---
PRUDENCIO HERMAN Face to Face with patient for initial transition planning/care coordination assessment. RN CM introduced self and role at [facility]. Patient lying in bed, alert and oriented, family. Patient willing to participate in assessment and is able to answer all questions appropriately. Care providers, pharmacy, and demographics verified. Patient wishes to discharge home, denies need for home health at this time. Patient states he has no further needs or concerns at this time. CM to follow for discharge planning needs that may arise. PCP: Kisha Specialists: Glenda, urologist; Kadeem utility clerk Preferred Pharmacy: [facility] Insurance: [facility], Prescription Benefit:none Living Will/HPOA: yes he thinks, Nuzhat Barron LNOK: , son, daughter in law Living Arrangements: Patient lives with in handicap accessible home with ramp to enter the home. assist with ADLs Transportation: self/ DME/HHC: Patient has shower chair, cane, walker, raised toilet, hospital bed, grab bars, hand held shower, electric and standard wheelchair. Patient has had [facility] in the past. Patient has been to rehab in [place]. Disposition Plan: Patient to discharge home with family support and follow-up plans in place. Carmen GOVEA, RN, CM
[2019-03-30 12:47] LABS: Pathologist Review Reviewed
--- NOTE | 2019-03-30 15:10 | CHAPLAIN ---
Type of Pastoral Visit _x__ Initial Visit ___ Follow-up Visit ___ On-call Visit ___ General Patient Visit ___ Spiritual Assessment ___ Family Conference ___ Bereavement ___ Rapid Response ___ Code Blue ___ Other (describe below) Pastoral Care Referral From _x__ Patient ___ Family ___ Nurse ___ Physician ___ Apartment Groundskeeper ___ Nursing Informatics Analyst ___ Other (describe below) Sacrament/Intervention _x__ Active listening ___ Anointing ___ Zoroastrianism ___ Bereavement ___ Communion ___ Angie exploration ___ ___ Life review _x__ Prayer ___ Reconciliation ___ Sacrament of Sick _x__ Supportive presence ___ Wedding ___ Other (describe below) Pastoral Comments
--- NOTE | 2019-03-30 15:48 | NURSING ---
Soap suds enema completed. pt tolerated well. Ama FLANNERY
--- NOTE | 2019-03-30 18:15 | RAD_ITS ---
We are attempting to reach an attending provider to discuss findings. An addendum with communication details will be sent when the communication is complete. STUDY: X-RAY - ACUTE ABDOMINAL SERIES REASON FOR EXAM: Male, 73 years old. DISTENDED ABDOMEN, SEPSIS AND UTI. UNABLE TO OBTAIN INFORMATION FROM PATIENT. PATIENT IS A PARAPLEGIC. TECHNIQUE: 2 view of the chest. Supine, 5 view(s) of the abdomen were obtained. COMPARISON: Prior day. FINDINGS: There is cardiomegaly and increased pulmonary vascular markings. No focal consolidation or effusion is identified. A left-sided cardiac device and cervical spinal hardware is seen. Evaluation the abdomen demonstrates significant gaseous distention of predominantly large bowel. A small focus of gas overlying the epigastrium may indicate free air. RAD/Acute Abdomen Inc Chest IMPRESSION: Findings consistent with CHF/fluid overload. Questionable focus of free air in the epigastrium. Recommend follow-up upright abdominal radiograph. Diffuse gaseous distention of large bowel is nonspecific. Electronically Signed: Zeke Sinha, at 20:01 EST Tel , Service support ,
--- NOTE | 2019-03-30 18:49 | NURSING ---
2nd soap suds enema given. Ama FLNANERY
--- NOTE | 2019-03-30 20:29 | CT_ITS ---
STUDY: CT ABDOMEN AND PELVIS WITH CONTRAST REASON FOR EXAM: Male, 73 years old. Abdominal distention and with question of free air. History of hypertension, prostate cancer and neurogenic bladder secondary to cervical injury. RADIATION DOSAGE (If Supplied By Facility): CTDIvol = ( 19.92 ) mGy, DLP = ( 1257.79 ) mGycm TECHNIQUE: Transaxial images were obtained from the dome of the diaphragm to the symphysis pubis without oral contrast. IV 100mL Isovue-370 was administered. Sagittal and coronal images were reconstructed. Individualized dose optimization techniques were used for this CT. COMPARISON: June 26, 2015. FINDINGS: Is small bilateral pleural effusions, right greater than left with subsegmental atelectasis. Lung bases are otherwise clear. Heart is normal in size. Small pericardial effusion. Pacer leads are seen in the right heart. There is a cyst in the dome of the liver in segment 8 liver is otherwise unremarkable. Normal gallbladder and extrahepatic biliary system. Normal spleen. Normal pancreas. Normal bilateral adrenal glands. There is a 2 cm ill-defined hypodense in the upper pole of the right kidney. There is stranding in the adjacent perinephric fat. Small cysts are seen in the mid and inferior kidney. Are seen more inferiorly. There is an 8 mm calculus in the lower pole calyx. There is mild hydronephrosis and ureterectasis to the urinary bladder without filling defect. No Simple cysts are seen within the left kidney. No enhancing mass or renal calculi. There is no hydronephrosis. Normal left ureter. Normal visualized stomach. Normal small intestine. Colon is distended with air and fluid. There is no evidence of obstructing mass. The appendix is visualized and appears normal. Minimal atherosclerotic changes of the abdominal aorta and iliac arteries without aneurysm or dissection. Normal inferior vena cava. Normal retroperitoneum. Normal urinary bladder. The prostate is enlarged with central calcifications. There are phleboliths in the pelvis without lymphadenopathy. No free air or free fluid is seen within the peritoneal cavity There is an umbilical hernia of omental fat. The abdominal wall is otherwise unremarkable. There are diffuse degenerative changes of the visualized lumbar spine. CT/Abdomen/Pelvis W IV Cont ONLY IMPRESSION: 1. Distention of the colon with air and fluid. There is no evidence of mass or inflammatory change. 2. A vague area of low attenuation in the upper pole of the right kidney with associated stranding of the perinephric fat. This had the appearance of a small cyst on the previous study. 3. Otherwise stable bilateral renal cysts. 4. Slight enlargement of the right lower pole renal calculus when compared to prior study. 5. Right hydronephrosis and ureterectasis without filling defect. 6. Stable enlargement of the prostate. 7. No other interval change. Electronically Signed: Henry Jimenez DO at 21:28 EST Tel [phone], Service support ,
--- NOTE | 2019-03-30 20:40 | PCM.PN.BLA ---
Progress Note 8:40am I was informed by patient's primary hospitalist that patient had been complaining of abdominal distention earlier today and abdominal series done had just been called back to primary hospitalist by radiologist as showing significant gaseous distention of predominantly large bowel with a small focus of gas overlying the epigastrium was medicated free air. Was recommended to get follow-up upright terminal radiograph. I placed a surgical consult and call both him and discussed with her on phone. She recommended a stat CT abdomen with IV contrast to assess. Order for stat CT placed. Patient remains n.p.o. Night hospitalist informed to follow-up on stat CT abdomen and to inform surgeon of results. STROKE Vital Signs/Narrative: Vital Signs Temp Pulse Resp BP Pulse Ox 03/30/19 20:08 97.5 F L 76 21 H 155/70 H 92 03/30/19 19:37 81 03/30/19 18:56 102.7 F H 90 22 H 177/77 H 92
[2019-03-30] MEDS: Potassium Chloride 10mEq/100mL 10 MEQ/100 ML IV.SOLN. 100 MEQ IV BOLUS ×2 (22:33→23:47)
[2019-03-31] VITALS (10 sets, daily range): BP systolic 138–162; BP diastolic 76–90; PULSE 67–96; RESP 18–22; TEMP 36.6–37.9; O2SAT 93–99
[2019-03-31] MEDS: Potassium Chloride 10mEq/100mL 10 MEQ/100 ML IV.SOLN. 100 MEQ IV BOLUS ×5 (00:29→23:08)
--- NOTE | 2019-03-31 08:20 | CON.PCM_ITS ---
Reason for Consult Date of Consultation: 03/31/19 Reason for Consultation: Possible free air on KUB History of Present Illness: The patient is a 73 year old M admitted due to sepsis/UTI. 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 Patient has been on IV antibiotics in the hospital for the UTI/sepsis. Patient had notable distended abdomen this morning an NG was placed however with minimal output this was removed. An acute abdominal series was done. The official read questioned possible free air in the epigastric region. An additional CT abdomen pelvis was done which did not show any free air and showed colonic gas, liquid stool towards the distal colon. Patient states this morning his abdomen is less distended but still little more than normal. Denies any nausea or vomiting and is hungry. Patient did have bowel function. Past Medical History Past Medical History (Chronic Problems): Chronic Problems (Last Reviewed 01/23/19 @ 10:43 by Lulu Rocha) Essential hypertension (Chronic) AAA (abdominal aortic aneurysm) without rupture (Chronic) History of permanent cardiac pacemaker placement (Chronic) Implant, DDDR MR compatible 02/19/16 Paraplegia (Chronic) Anemia (Chronic) Central cord syndrome (Chronic) Subluxation of C6-C7 cervical vertebrae (Chronic) remote 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.9) (Chronic) Medical History: Medical History (Last Reviewed 01/23/19 @ 10:43 by Lulu Rocha) Essential hypertension (Chronic) I10 Sick sinus syndrome (Resolved) I49.5 Central cord syndrome (Chronic) S14.129A Family history of hypertension Z82.49 History of DVT (deep vein thrombosis) Z86.718 History of spinal cord injury Z87.828 BPH (benign prostatic hypertrophy) N40.0 Cervical spinal stenosis M48.02 Degenerative joint disease (DJD) of lumbar spine M47.816 Depression F32.9 Neurogenic bladder N31.9 Premature ventricular contractions I49.3 Spinal cord injury [id number] Allergies No Known Allergies Allergy (Verified 01/23/19 10:42) Home Medications: Ambulatory Orders Medication Instructions Recorded Lisinopril [Zestril] 20 mg PO DAILY 06/24/15 Tamsulosin HCl [Flomax] 0.4 mg PO QHS 06/24/15 ascorbic acid (vitamin C) 1,000 mg 1,000 mg PO DAILY tab 02/14/18 tablet gabapentin 300 mg capsule 600 mg PO BIDCM cap 02/14/18 vitamin E (dl, acetate) 400 unit 400 unit PO DAILY 02/14/18 capsule Cholecalciferol (Vitamin D3) 400 unit PO DAILY 03/29/19 [Vitamin D3] Citalopram [Celexa] 20 mg PO QHS 03/29/19 Nifedipine [Nifedipine ER] 30 mg PO DAILY 03/29/19 Cephalexin [Keflex] 500 mg PO Q8 #20 cap 04/02/19 Potassium Chloride [K-Dur] 20 meq PO BIDCM #60 tab 04/02/19 Senna/Docusate Sodium [Senokot-S] 2 tab PO BID #120 tab 04/02/19 Surgical History: Surgical History (Last Reviewed 01/23/19 @ 10:43 by Lulu Rocha) History of permanent cardiac pacemaker placement (Chronic) Z95.0 Implant, DDDR MR compatible 02/19/16 S/P cervical spinal fusion Z98.1 History of neck surgery Z98.890 repair of broken neck after fall Surgical History: pacemaker implantation, TURP, - - cervical spinal surgery due to injury Psychiatric History: Depression Lives: With Family Smoking Status: Never smoker Alcohol: None Drugs: None - *Family History Maternal Family History: Family History (Last Reviewed 01/23/19 @ 10:43 by Lulu Rocha) Mother Breast cancer Cancer Sister Diabetes Hypertension CHF (congestive heart failure) Kidney disease Sister CHF (congestive heart failure) Cardiac defibrillator in situ Other Family history of hypertension History Items: Cancer - age76, breast Paternal Family History: Family History (Last Reviewed 01/23/19 @ 10:43 by Lulu Rocha) Mother Breast cancer Cancer Sister Diabetes Hypertension CHF (congestive heart failure) Kidney disease Sister CHF (congestive heart failure) Cardiac defibrillator in situ Other Family history of hypertension History Items: No pertinent history - not involved with pt Review of Systems Constitutional: Denies: Anorexia, Fever HEENT: Denies: Difficulty Swallowing Cardiovascular: Denies: Chest Pain Respiratory: Denies: Shortness of breath at rest Gastrointestinal: Reports: Abdominal Pain - Improved with improved distention. Denies: Nausea, Vomiting Genitourinary: Reports: Dysuria - Patient currently being treated for UTI Musculoskeletal: Reports: - - Bilateral lower extremity weakness due to accident. Psychiatric: Denies: Depression Hematologic/ Lymphatic: Denies: Easy Bruising, Easy Bleeding - Physical Exam Vitals/I&O's: Vital Signs Temp Pulse Resp BP Pulse Ox 98.4 F 74 18 157/82 H 93 03/31/19 04:55 03/31/19 04:55 03/31/19 04:55 03/31/19 04:55 03/31/19 07:50 Oxygen Delivery Method Room Air Weight: 227 lb 15.327 oz Body Mass Index (BMI) 33.6 Intake and Output for Last 24 Hours 03/29/19 03/30/19 03/31/19 23:59 23:59 23:59 Intake Total 1912.5 / 1912.5 3427.5 / 3427.5 300 / 300 Output Total 800 / 800 2300 / 2450 1150 / 1150 Balance 1112.5 / 1112.5 1127.5 / 977.5 -850 / -850 Microbiology Past 72 Hours 03/29/19 13:17 Urine Catheter - Catheter Urine Culture - Final Presumptive E. coli Laboratory Results 03/29/19 13:00: Diff Path Review Reviewed Current Medications Acetaminophen (Tylenol) 650 mg PO Q6H PRN PRN PRN Reason: HEADACHE/FEVER (T>100F) Last Admin: 03/30/19 03:39 Dose: 650 mg Documented by: Ascorbic Acid (Vitamin C) 1,000 mg PO DAILY [facility] Last Admin: 03/30/19 09:48 Dose: 1,000 mg Documented by: Citalopram Hydrobromide (Celexa) 20 mg PO QHS [facility] Last Admin: 03/30/19 22:32 Dose: Not Given Documented by: Enoxaparin Sodium (Lovenox) 40 mg SC DAILY [facility] Last Admin: 03/30/19 09:50 Dose: 40 mg Documented by: Gabapentin (Neurontin) 600 mg PO BIDCM [facility] Last Admin: 03/30/19 16:35 Dose: Not Given Documented by: Glucagon () 1 mg IM .X1 PRN PRN Reason: Hypoglycemia Hydralazine HCl (Apresoline Iv) 10 mg IV Q4H PRN PRN PRN Reason: SBP > 160 Ceftriaxone Sodium (Rocephin) 1 gm in 50 mls @ 100 mls/hr IV Q12 [facility] Last Infusion: 03/30/19 23:49 Dose: Infused Documented by: Dextrose (Dextrose 10%-Water) 250 mls @ 999 mls/hr IV .Q16M PRN; Protocol PRN Reason: HYPOGLYCEMIA Lisinopril (Zestril) 20 mg PO DAILY [facility] Last Admin: 03/30/19 09:49 Dose: 20 mg Documented by: Nifedipine (Procardia Xl) 30 mg PO DAILY@2200 [facility] Last Admin: 03/30/19 22:32 Dose: Not Given Documented by: Ondansetron HCl (Zofran) 4 mg IV Q8H PRN PRN PRN Reason: NAUSEA/VOMITING Sodium Chloride () 10 - 40 ml IV UD PRN PRN Reason: SALINE FLUSH Tamsulosin HCl (Flomax) 0.4 mg PO QHS [facility] Last Admin: 03/30/19 22:32 Dose: Not Given Documented by: Vitamin E (Vitamin E) 400 units PO DAILY [facility] Last Admin: 03/30/19 09:49 Dose: 400 units Documented by: Assessment/Plan All Active Problems (Last Reviewed 01/23/19 @ 10:43 by Lulu Rocha) E. coli UTI (urinary tract infection) (Acute) Sick sinus syndrome (Resolved) Infection with ESBL Klebsiella oxytoca (Resolved) UTI (urinary tract infection) (Resolved) UTI (urinary tract infection) (Resolved) 73 old male with abdominal distention, CT abdomen pelvis showed gas throughout the colon with some liquid appearing stool towards distal colon 1. Okay for sips of clears from my standpoint. Once patient has increased bowel function with enemas okay to advance. No plans for surgical intervention. 2. Hypokalemia replace last night labs pending for today. Tanika Petit M.D. Pager: [phone] [facility] [address] [place] [address], Outpatient [place], [address] [place] [id number] Office: [phone] Code Visit Inpatient E&M: 24602 Init Hosp L2
[2019-03-31] MEDS: Ceftriaxone 1 GM/50 ML BAG IV ×2 (08:56→21:55)
[2019-03-31] MEDS: Enoxaparin 40 MG/0.4 ML Syringe SC (09:00)
[2019-03-31] MEDS: Lisinopril 20 MG Tablet PO (09:00)
[2019-03-31] MEDS: Ascorbic Acid 500 MG Tablet 1000 MG PO (09:01)
[2019-03-31] MEDS: Gabapentin 600 MG Tablet PO ×2 (09:01→17:23)
[2019-03-31] MEDS: Vitamin E 400 UNITS Capsule PO (09:01)
[2019-03-31] MEDS: Acetaminophen 325 MG Tablet 650 MG PO (09:06)
[2019-03-31 09:24] LABS: Hematocrit 37.2 % (40-54); Hemoglobin 12.4 g/dL (13.0-16.5); Mean Corp Hgb Conc 33.3 g/dL (32-36); Mean Corpuscular Hgb 28.8 pg (27.0-32.0); Mean Corpuscular Volume 86.5 fL (80-94); Mean Platelet Vol. 10.6 fl (6.2-12.0); Platelet Count 134 K/mm3 (150-450); RBC Distribution Width CV 14.4 % (11.6-14.6); RBC Distribution Width SD 45.5 fl (35.1-43.9); White Blood Count 13.2 K/mm3 (4.4-11.0)
[2019-03-31 09:43] LABS: Anion Gap 9 (5-15); BUN 14 mg/dL (7-18); BUN/Creat Ratio 13.7 RATIO (10-20); Calcium,Total 8.8 mg/dL (8.5-10.1); Chloride 107 mmol/L (98-107); Creatinine, Serum 1.02 mg/dL (0.70-1.30); EST Glomerular Filtration Rate 76 mL/min (>60); Est Glom Filt Rate - Afr Amer 92 mL/min (>60); Estimated Creatinine Clearance 65.46 ml/min; Glucose 102 mg/dL (74-106); Magnesium 1.9 mg/dL (1.6-2.6); Potassium 3.1 mmol/L (3.5-5.1); Sodium Level 138 mmol/L (136-145)
--- NOTE | 2019-03-31 11:18 | PN_ITS ---
Reason for Visit: Follow-up acute cystitis Subjective: Did receive a call from allergy regarding possible air under the diaphragm. R epeat imaging studies ordered (upright as well as CT of the abdomen and consult placed to general surgery. Repeat imaging studies did not reveal any evidence of perforation. It was felt patient abdominal distention was secondary to colonic distention as a result of obstipation. General surgery recommended continuation of current management with soap betzy enemas. Objective: GENERAL: Patient appears comfortable but quite lethargic HEENT: Atraumatic; EYES; Anicteric, Normal Conjunctiva NECK; supple, normal thyroid, RESPIRATORY: Diminished to auscultation CARDIOVASCULAR: Regular S1 S2, GI: Less distended compared to the previous day : No Renal angle tenderness; EXTREMITIES: No edema, no clubbing, MUSCULOSKELETAL: no muscle waisting NEURO: Awake; SKIN: No Rash PSYCH; Flat affect Vitals/I&O's: Vital Signs Temp Pulse Resp BP Pulse Ox 100.3 F H 78 18 162/90 H 94 03/31/19 10:30 03/31/19 10:30 03/31/19 10:30 03/31/19 10:30 03/31/19 10:30 Oxygen Delivery Method Room Air Weight: 103.4 kg Body Mass Index (BMI) 33.6 Intake and Output for Last 24 Hours 03/29/19 03/30/19 03/31/19 23:59 23:59 23:59 Intake Total 1912.5 / 1912.5 3427.5 / 3427.5 350 / 350 Output Total 800 / 800 2300 / 2450 1150 / 1150 Balance 1112.5 / 1112.5 1127.5 / 977.5 -800 / -800 Microbiology Past 72 Hours 03/29/19 13:17 Urine Catheter - Catheter Urine Culture - Final Presumptive E. coli Laboratory Results 03/29/19 13:00: Diff Path Review Reviewed 03/31/19 09:05: WBC 13.2 H, RBC 4.30 L, Hgb 12.4 L, Hct 37.2 L, MCV 86.5, MCH 28.8, MCHC 33.3, RDW Std Deviation 45.5 H, RDW Coeff of Donna 14.4, Plt Count 134 L, MPV 10.6 03/31/19 09:05: Sodium 138, Potassium 3.1 L, Chloride 107, Carbon Dioxide 22.0, Anion Gap 9, BUN 14, Creatinine 1.02, Estim Creat Clear Calc 65.46, Est GFR (MDRD) Af Amer 92, Est GFR (MDRD) Non-Af 76, BUN/Creatinine Ratio 13.7, Glucose 102, Calcium 8.8, Magnesium 1.9 Current Medications Acetaminophen (Tylenol) 650 mg PO Q6H PRN PRN PRN Reason: HEADACHE/FEVER (T>100F) Last Admin: 03/31/19 09:06 Dose: 650 mg Documented by: Ascorbic Acid (Vitamin C) 1,000 mg PO DAILY [facility] Last Admin: 03/31/19 09:01 Dose: 1,000 mg Documented by: Calamine/Phenol (Calmoseptine Ointment) 1 applic TOPICAL BID [facility]; Protocol Last Admin: 03/31/19 11:00 Dose: Not Given Documented by: Citalopram Hydrobromide (Celexa) 20 mg PO QHS [facility] Last Admin: 03/30/19 22:32 Dose: Not Given Documented by: Enoxaparin Sodium (Lovenox) 40 mg SC DAILY [facility] Last Admin: 03/31/19 09:00 Dose: 40 mg Documented by: Gabapentin (Neurontin) 600 mg PO BIDCM [facility] Last Admin: 03/31/19 09:01 Dose: 600 mg Documented by: Glucagon () 1 mg IM .X1 PRN PRN Reason: Hypoglycemia Hydralazine HCl (Apresoline Iv) 10 mg IV Q4H PRN PRN PRN Reason: SBP > 160 Ceftriaxone Sodium (Rocephin) 1 gm in 50 mls @ 100 mls/hr IV Q12 [facility] Last Infusion: 03/31/19 11:01 Dose: Infused Documented by: Dextrose (Dextrose 10%-Water) 250 mls @ 999 mls/hr IV .Q16M PRN; Protocol PRN Reason: HYPOGLYCEMIA Lisinopril (Zestril) 20 mg PO DAILY [facility] Last Admin: 03/31/19 09:00 Dose: 20 mg Documented by: Nifedipine (Procardia Xl) 30 mg PO DAILY@2200 [facility] Last Admin: 03/30/19 22:32 Dose: Not Given Documented by: Ondansetron HCl (Zofran) 4 mg IV Q8H PRN PRN PRN Reason: NAUSEA/VOMITING Sodium Chloride () 10 - 40 ml IV UD PRN PRN Reason: SALINE FLUSH Tamsulosin HCl (Flomax) 0.4 mg PO QHS [facility] Last Admin: 03/30/19 22:32 Dose: Not Given Documented by: Vitamin E (Vitamin E) 400 units PO DAILY [facility] Last Admin: 03/31/19 09:01 Dose: 400 units Documented by: STROKE Vital Signs/Narrative: Vital Signs Temp Pulse Resp BP Pulse Ox 03/31/19 10:30 100.3 F H 78 18 162/90 H 94 03/31/19 08:05 78 03/31/19 07:50 93 Medical Necessity - Tobacco Use Smoking Status: Never smoker Assessment/Plan All Active Problems (Last Reviewed 01/23/19 @ 10:43 by Lulu Rocha) Sick sinus syndrome (Resolved) Edema (Acute) Syncope (Acute) Infection with ESBL Klebsiella oxytoca (Resolved) UTI (urinary tract infection) (Resolved) UTI (urinary tract infection) (Resolved) Patient is a 74-year-old gentleman with past medical history significant for neck trauma with subsequent paraplegia brought to the emergency department with fever. Work-up was consistent with sepsis secondary to UTI. 1. Sepsis secondary to UTI with E. coli secondary to use of PRN straight cath as a result of chronic urinary retention in view of patient underlying paraplegia ?Admitted to regular nursing floor managed with IV fluids, antibiotics and cultures sent with plans to adjust antibiotics based on culture result ?03/31/2019; urine cultures came back positive for E. coli patient currently on appropriate antibiotic therapy. 2. Abdominal distention (differential diagnoses include ileus/small bowel obstruction/colonic obstruction ?Patient was seen on the morning of 03/30/2019 complaining of abdominal discomfort. Physical examination demonstrated significant abdominal distention Patient was kept n.p.o., an NG tube was inserted acute abdominal series ordered for subsequent evaluation. ?03/31/2019; did receive a call from allergy regarding possible air under the diaphragm. Repeat imaging studies ordered (upright as well as CT of the abdomen and consult placed to general surgery. Repeat imaging studies did not reveal any evidence of perforation. It was felt patient abdominal distention was secondary to colonic distention as a result of obstipation. General surgery recommended continuation of current management with enemas. 3. Essential hypertension Blood pressure controlled on lisinopril and nifedipine did continue 4. Paraplegia following traumatic neck fracture ?Supportive care patient apparently has chronic urinary retention for which patient undergoes periodic straight cath as needed 5. Hypokalemia ?Corrected per protocol with subsequent BMPs ordered for monitoring ?03/31/2019; potassium still remains low at 3.1 6. BPH ?Patient is on Flomax did continue 7. Peripheral neuropathy ?Patient is on gabapentin did continue 8. Depression Patient is on SSRI did continue 9. DVT prophylaxis ?On enoxaparin Clinical Impression(s) from Imaging Studies Chest X-Ray 03/29/19 12:45 IMPRESSION: Cardiomegaly. The lungs are clear. Electronically Signed: Umang Guerra, at 13:57 EST , Service support , KUB X-Ray 03/30/19 11:40 IMPRESSION: The tip of the nasogastric tube is seen within the fundal portion of the stomach. Electronically Signed: Umang Guerra, at 12:19 EST , Service support , Acute Abdomen Series 03/30/19 18:15 IMPRESSION: Findings consistent with CHF/fluid overload. Questionable focus of free air in the epigastrium. Recommend follow-up upright abdominal radiograph. Diffuse gaseous distention of large bowel is nonspecific. Electronically Signed: Zeke Sinha, at 20:01 EST Tel , Service support , ADDENDUM: 03/30/192021 IMPRESSION: Findings consistent with CHF/fluid overload. Questionable focus of free air in the epigastrium. Recommend follow-up upright abdominal radiograph. Diffuse gaseous distention of large bowel is nonspecific. N.B. : The above information has been verbally conveyed by Zeke Sinha to Marc Cantu MD, on 03/30/2019 20:15:28 (ET). Electronically Signed: Zeke Sinha, at 20:01 EST Tel , Service support , ADDENDUM: 03/30/192023 Abdomen/Pelvis CT 03/30/19 20:29 IMPRESSION: 1. Distention of the colon with air and fluid. There is no evidence of mass or inflammatory change. 2. A vague area of low attenuation in the upper pole of the right kidney with associated stranding of the perinephric fat. This had the appearance of a small cyst on the previous study. 3. Otherwise stable bilateral renal cysts. 4. Slight enlargement of the right lower pole renal calculus when compared to prior study. 5. Right hydronephrosis and ureterectasis without filling defect. 6. Stable enlargement of the prostate. 7. No other interval change. Electronically Signed: Henry Jimenez DO at 21:28 EST Tel [phone], Service support , Code Visit Inpatient E&M: 17747 Subs Hosp L2
[2019-03-31] MEDS: Senna/Docusate Sodium 1 Tablet PO ×2 (12:25→21:51)
--- NOTE | 2019-03-31 13:07 | NURSING ---
wound photo: bilateral buttocks
[2019-03-31] MEDS: Magnesium Citrate 300 ML PO (15:01)
[2019-03-31 17:50] LABS: Potassium 3.1 mmol/L (3.5-5.1)
[2019-03-31] MEDS: Tamsulosin HCl 0.4 MG Capsule PO (21:50)
[2019-03-31] MEDS: NIFEdipine 30 MG Tablet PO (21:50)
[2019-03-31] MEDS: Citalopram 20 MG Tablet PO (21:55)
[2019-03-31] MEDS: Menthol/Lanolin/Calamine/Znox 113 GM Tube 1 APPLIC TOPICAL (21:55)
[2019-04-01] VITALS (8 sets, daily range): BP systolic 105–168; BP diastolic 60–101; PULSE 63–83; RESP 18; TEMP 36.5–36.9; O2SAT 95–99
[2019-04-01] MEDS: Potassium Chloride 10mEq/100mL 10 MEQ/100 ML IV.SOLN. 100 MEQ IV BOLUS (00:16)
[2019-04-01] MEDS: hydrALAZINE 20 MG/ML Vial 10 MG IV (02:04)
[2019-04-01] MEDS: 0.9% Saline Lock 10 ML Syringe IV ×2 (02:04→11:16)
[2019-04-01 07:00] LABS: Hematocrit 39.1 % (40-54); Hemoglobin 13.2 g/dL (13.0-16.5); Mean Corp Hgb Conc 33.8 g/dL (32-36); Mean Corpuscular Hgb 28.9 pg (27.0-32.0); Mean Corpuscular Volume 85.7 fL (80-94); Mean Platelet Vol. 10.6 fl (6.2-12.0); Platelet Count 150 K/mm3 (150-450); RBC Distribution Width CV 14.1 % (11.6-14.6); RBC Distribution Width SD 44.4 fl (35.1-43.9); Red Blood Count 4.56 M/mm3 (4.6-6.2); White Blood Count 9.9 K/mm3 (4.4-11.0)
[2019-04-01 07:19] LABS: Anion Gap 9 (5-15); BUN 15 mg/dL (7-18); Calcium,Total 8.9 mg/dL (8.5-10.1); Chloride 110 mmol/L (98-107); Creatinine, Serum 0.94 mg/dL (0.70-1.30); EST Glomerular Filtration Rate 84 mL/min (>60); Est Glom Filt Rate - Afr Amer 102 mL/min (>60); Estimated Creatinine Clearance 71.03 ml/min; Glucose 105 mg/dL (74-106); Magnesium 2.1 mg/dL (1.6-2.6); Potassium 3.4 mmol/L (3.5-5.1); Sodium Level 141 mmol/L (136-145)
--- NOTE | 2019-04-01 08:10 | PCM.PN.HOSP ---
Reason for Visit: Follow-up acute cystitis and constipation Subjective: Patient seen still complains of feeling bloated with distended abdomen. Patient has not had a good bowel movement despite frequent enemas. He also refuses a magnesium citrate complain about a taste Objective: GENERAL: Appears ill looking HEENT: Atraumatic; EYES; Anicteric, Normal Conjunctiva NECK; supple, normal thyroid, RESPIRATORY: Diminished to auscultation CARDIOVASCULAR: Regular S1 S2, GI: Abdomen slightly distended : No Renal angle tenderness; EXTREMITIES: No edema, no clubbing, MUSCULOSKELETAL: no muscle waisting NEURO: Awake; SKIN: No Rash PSYCH; Flat affect Vitals/I&O's: Vital Signs Temp Pulse Resp BP Pulse Ox 98.2 F 83 18 154/90 H 99 04/01/19 01:54 04/01/19 02:04 04/01/19 01:54 04/01/19 04:45 04/01/19 01:54 Oxygen Flow Rate (L/min) 3 Oxygen Delivery Method Nasal Cannula Weight: 103.4 kg Body Mass Index (BMI) 33.6 Intake and Output for Last 24 Hours 03/30/19 03/31/19 04/01/19 23:59 23:59 23:59 Intake Total 3427.5 / 3427.5 1080 / 1080 400 / 400 Output Total 2300 / 2450 2250 / 2250 1200 / 1200 Balance 1127.5 / 977.5 -1170 / -1170 -800 / -800 Microbiology Past 72 Hours 03/29/19 13:05 Blood Culture (Wb) - Anticubital Left Blood Culture - Preliminary No growth in 48 hours. 03/29/19 13:00 Blood Culture (Wb) - Anticubital Right Blood Culture - Preliminary No growth in 48 hours. 03/29/19 13:17 Urine Catheter - Catheter Urine Culture - Final Presumptive E. coli Laboratory Results 03/31/19 09:05: WBC 13.2 H, RBC 4.30 L, Hgb 12.4 L, Hct 37.2 L, MCV 86.5, MCH 28.8, MCHC 33.3, RDW Std Deviation 45.5 H, RDW Coeff of Donna 14.4, Plt Count 134 L, MPV 10.6 03/31/19 09:05: Sodium 138, Potassium 3.1 L, Chloride 107, Carbon Dioxide 22.0, Anion Gap 9, BUN 14, Creatinine 1.02, Estim Creat Clear Calc 65.46, Est GFR (MDRD) Af Amer 92, Est GFR (MDRD) Non-Af 76, BUN/Creatinine Ratio 13.7, Glucose 102, Calcium 8.8, Magnesium 1.9 03/31/19 17:09: Potassium 3.1 L 04/01/19 06:30: WBC 9.9, RBC 4.56 L, Hgb 13.2, Hct 39.1 L, MCV 85.7, MCH 28.9, MCHC 33.8, RDW Std Deviation 44.4 H, RDW Coeff of Donna 14.1, Plt Count 150, MPV 10.6 04/01/19 06:30: Sodium 141, Potassium 3.4 L, Chloride 110 H, Carbon Dioxide 22.0, Anion Gap 9, BUN 15, Creatinine 0.94, Estim Creat Clear Calc 71.03, Est GFR (MDRD) Af Amer 102, Est GFR (MDRD) Non-Af 84, BUN/Creatinine Ratio 16.0, Glucose 105, Calcium 8.9, Magnesium 2.1 Current Medications Acetaminophen (Tylenol) 650 mg PO Q6H PRN PRN PRN Reason: HEADACHE/FEVER (T>100F) Last Admin: 03/31/19 09:06 Dose: 650 mg Documented by: Albuterol Sulfate (Ventolin Aerosols) 2.5 mg INHALATION Q2H PRN PRN PRN Reason: wheezing, dyspnea Ascorbic Acid (Vitamin C) 1,000 mg PO DAILY [facility] Last Admin: 03/31/19 09:01 Dose: 1,000 mg Documented by: Calamine/Phenol (Calmoseptine Ointment) 1 applic TOPICAL BID [facility]; Protocol Last Admin: 03/31/19 21:55 Dose: 1 applicatio Documented by: Citalopram Hydrobromide (Celexa) 20 mg PO QHS [facility] Last Admin: 03/31/19 21:55 Dose: 20 mg Documented by: Enoxaparin Sodium (Lovenox) 40 mg SC DAILY [facility] Last Admin: 03/31/19 09:00 Dose: 40 mg Documented by: [facility]) [facility] Last Admin: 03/31/19 17:23 Dose: 600 mg Documented by: Glucagon () 1 mg IM .X1 PRN PRN Reason: Hypoglycemia Hydralazine HCl (Apresoline Iv) 10 mg IV Q4H PRN PRN PRN Reason: SBP > 160 Last Admin: 04/01/19 02:04 Dose: 10 mg Documented by: Ceftriaxone Sodium (Rocephin) 1 gm in 50 mls @ 100 mls/hr IV Q12 [facility] Last Infusion: 03/31/19 22:39 Dose: Infused Documented by: Dextrose (Dextrose 10%-Water) 250 mls @ 999 mls/hr IV .Q16M PRN; Protocol PRN Reason: HYPOGLYCEMIA Lisinopril (Zestril) 20 mg PO DAILY [facility] Last Admin: 03/31/19 09:00 Dose: 20 mg Documented by: Nifedipine (Procardia Xl) 30 mg PO DAILY@2200 [facility] Last Admin: 03/31/19 21:50 Dose: 30 mg Documented by: Ondansetron HCl (Zofran) 4 mg IV Q8H PRN PRN PRN Reason: NAUSEA/VOMITING Senna/Docusate Sodium (Senokot-S, Hallie-Colace) 1 tablet PO BID [facility] Last Admin: 03/31/19 21:51 Dose: 1 tablet Documented by: Sodium Chloride () 10 - 40 ml IV UD PRN PRN Reason: SALINE FLUSH Last Admin: 04/01/19 02:04 Dose: 10 ml Documented by: Tamsulosin HCl (Flomax) 0.4 mg PO QHS [facility] Last Admin: 03/31/19 21:50 Dose: 0.4 mg Documented by: Vitamin E (Vitamin E) 400 units PO DAILY [facility] Last Admin: 03/31/19 09:01 Dose: 400 units Documented by: STROKE Vital Signs/Narrative: Vital Signs BP 04/01/19 04:45 154/90 H Medical Necessity - Tobacco Use Smoking Status: Never smoker Assessment/Plan All Active Problems (Last Reviewed 01/23/19 @ 10:43 by Lulu Rocha) Sick sinus syndrome (Resolved) Edema (Acute) Syncope (Acute) Infection with ESBL Klebsiella oxytoca (Resolved) UTI (urinary tract infection) (Resolved) UTI (urinary tract infection) (Resolved) Patient is a 74-year-old gentleman with past medical history significant for neck trauma with subsequent paraplegia brought to the emergency department with fever. Work-up was consistent with sepsis secondary to UTI. 1. Sepsis secondary to UTI with E. coli secondary to use of PRN straight cath as a result of chronic urinary retention in view of patient underlying paraplegia ?Admitted to regular nursing floor managed with IV fluids, antibiotics and cultures sent with plans to adjust antibiotics based on culture result ?03/31/2019; urine cultures came back positive for E. coli patient currently on appropriate antibiotic therapy. ?04/01/2019; has had only 1 low-grade fever for the past 24 hours 2. Abdominal distention (differential diagnoses include ileus/small bowel obstruction/colonic obstruction ?Patient was seen on the morning of 03/30/2019 complaining of abdominal discomfort. Physical examination demonstrated significant abdominal distention Patient was kept n.p.o., an NG tube was inserted acute abdominal series ordered for subsequent evaluation. ?03/31/2019; did receive a call from allergy regarding possible air under the diaphragm. Repeat imaging studies ordered (upright as well as CT of the abdomen and consult placed to general surgery. Repeat imaging studies did not reveal any evidence of perforation. It was felt patient abdominal distention was secondary to colonic distention as a result of obstipation. General surgery recommended continuation of current management with enemas. ?04/01/2019; patient still remains significantly bloated. Patient did refuse magnesium citrate did advise the patient to try lactulose in addition to his scheduled senna 3. Essential hypertension Blood pressure controlled on lisinopril and nifedipine did continue 4. Paraplegia following traumatic neck fracture ?Supportive care patient apparently has chronic urinary retention for which patient undergoes periodic straight cath as needed 5. Hypokalemia ?Corrected per protocol with subsequent BMPs ordered for monitoring ?03/31/2019; potassium still remains low at 3.1 ?04/01/2019 potassium 3.4 this a.m. 6. BPH ?Patient is on Flomax did continue 7. Peripheral neuropathy ?Patient is on gabapentin did continue 8. Depression Patient is on SSRI did continue 9. DVT prophylaxis ?On enoxaparin Code Visit Inpatient E&M: 64815 Subs Hosp L2
[2019-04-01] MEDS: Gabapentin 600 MG Tablet PO ×2 (08:32→17:47)
[2019-04-01] MEDS: Menthol/Lanolin/Calamine/Znox 113 GM Tube 1 APPLIC TOPICAL ×2 (11:15→21:41)
[2019-04-01] MEDS: Ceftriaxone 1 GM/50 ML BAG IV ×2 (11:15→21:45)
[2019-04-01] MEDS: Enoxaparin 40 MG/0.4 ML Syringe SC (11:19)
[2019-04-01] MEDS: Vitamin E 400 UNITS Capsule PO (11:20)
[2019-04-01] MEDS: Ascorbic Acid 500 MG Tablet 1000 MG PO (11:20)
[2019-04-01] MEDS: Lisinopril 20 MG Tablet PO (11:20)
[2019-04-01] MEDS: Senna/Docusate Sodium 1 Tablet 2 TABLET PO (21:47)
[2019-04-01] MEDS: Tamsulosin HCl 0.4 MG Capsule PO (21:47)
[2019-04-01] MEDS: Citalopram 20 MG Tablet PO (21:48)
[2019-04-01] MEDS: NIFEdipine 30 MG Tablet PO (21:48)
[2019-04-02 03:57] VITALS: BP 112/62; PULSE 65; RESP 18; TEMP 36.8; O2SAT 95
[2019-04-02 06:17] VITALS: O2SAT 93
[2019-04-02 06:58] VITALS: O2SAT 93
[2019-04-02 07:07] LABS: Hematocrit 37.2 % (40-54); Hemoglobin 12.3 g/dL (13.0-16.5); Mean Corp Hgb Conc 33.1 g/dL (32-36); Mean Corpuscular Hgb 28.8 pg (27.0-32.0); Mean Corpuscular Volume 87.1 fL (80-94); Mean Platelet Vol. 10.8 fl (6.2-12.0); Platelet Count 157 K/mm3 (150-450); RBC Distribution Width CV 14.4 % (11.6-14.6); RBC Distribution Width SD 45.8 fl (35.1-43.9); Red Blood Count 4.27 M/mm3 (4.6-6.2); White Blood Count 7.2 K/mm3 (4.4-11.0)
[2019-04-02 07:23] LABS: Anion Gap 6 (5-15); BUN 26 mg/dL (7-18); BUN/Creat Ratio 24.5 RATIO (10-20); Chloride 108 mmol/L (98-107); Creatinine, Serum 1.06 mg/dL (0.70-1.30); EST Glomerular Filtration Rate 73 mL/min (>60); Est Glom Filt Rate - Afr Amer 88 mL/min (>60); Estimated Creatinine Clearance 62.99 ml/min; Glucose 103 mg/dL (74-106); Potassium 3.1 mmol/L (3.5-5.1); Sodium Level 139 mmol/L (136-145)
--- NOTE | 2019-04-02 09:00 | PCM.DC ---
You will use the following diet at home:: No restrictions Allergies/Adverse Reactions: Allergies No Known Allergies Allergy (Verified 01/23/19 10:42) Medications to take at Discharge Lisinopril [Zestril] 20 mg PO DAILY 06/24/15 Tamsulosin HCl [Flomax] 0.4 mg PO QHS 06/24/15 ascorbic acid (vitamin C) 1,000 mg tablet 1,000 mg PO DAILY tab 02/14/18 gabapentin 300 mg capsule 600 mg PO BIDCM cap 02/14/18 vitamin E (dl, acetate) 400 unit capsule 400 unit PO DAILY 02/14/18 Cholecalciferol (Vitamin D3) [Vitamin D3] 400 unit PO DAILY 03/29/19 Citalopram [Celexa] 20 mg PO QHS 03/29/19 Nifedipine [Nifedipine ER] 30 mg PO DAILY 03/29/19 Cephalexin [Keflex] 500 mg PO Q8 #20 cap 04/02/19 Potassium Chloride [K-Dur] 20 meq PO BIDCM #60 tab 04/02/19 Senna/Docusate Sodium [Senokot-S] 2 tab PO BID #120 tab 04/02/19 The following prescriptions were given: Potassium Chloride [K-Dur] 20 meq PO BIDCM #60 tab Transmission Status: Pending to [facility] Cephalexin [Keflex] 500 mg PO Q8 #20 cap Transmission Status: Pending to [facility] Senna/Docusate Sodium [Senokot-S] 2 tab PO BID #120 tab Transmission Status: Pending to [facility] Primary Care Physician: Tunde Beard DO [Primary Care Provider] - Please follow up with your Primary Care Physician in: in 5-7 days Test Results: Test results from this visit will be discussed in further detail at your follow-up appointment, if applicable. Proposed Discharge Date: 04/02/19
[2019-04-02 09:04] VITALS: BP 108/63; PULSE 68; RESP 15; TEMP 36.6; O2SAT 97
[2019-04-02] MEDS: Gabapentin 600 MG Tablet PO ×2 (09:28→16:52)
[2019-04-02] MEDS: Menthol/Lanolin/Calamine/Znox 113 GM Tube 1 APPLIC TOPICAL (09:28)
[2019-04-02] MEDS: Enoxaparin 40 MG/0.4 ML Syringe SC (09:28)
--- NOTE | 2019-04-02 09:28 | DS.PCM_ITS ---
Discharge Date and Diagnosis - Problem List Patient Problems: Active and Suspected Problems (Last Reviewed 01/23/19 @ 10:43 by Lulu Rocha) E. coli UTI (urinary tract infection) (Acute) Date of Admission: 03/29/19 Date of Discharge: 04/02/19 - Primary Discharge Diagnosis Active and Suspected Problems (Last Reviewed 01/23/19 @ 10:43 by Lulu Rocha) E. coli UTI (urinary tract infection) (Acute) - Secondary Discharge Diagnosis Chronic Problems (Last Reviewed 01/23/19 @ 10:43 by Lulu Rocha) Essential hypertension (Chronic) AAA (abdominal aortic aneurysm) without rupture (Chronic) History of permanent cardiac pacemaker placement (Chronic) Implant, DDDR MR compatible 02/19/16 Paraplegia (Chronic) Anemia (Chronic) Central cord syndrome (Chronic) Subluxation of C6-C7 cervical vertebrae (Chronic) remote 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.9) (Chronic) Hospital Course and Treatment Imaging Results: Clinical Impression(s) from Imaging Studies Chest X-Ray 03/29/19 12:45 IMPRESSION: Cardiomegaly. The lungs are clear. Electronically Signed: Umang Guerra, at 13:57 EST , Service support , KUB X-Ray 03/30/19 11:40 IMPRESSION: The tip of the nasogastric tube is seen within the fundal portion of the stomach. Electronically Signed: Umang Guerra, at 12:19 EST , Service support , Acute Abdomen Series 03/30/19 18:15 IMPRESSION: Findings consistent with CHF/fluid overload. Questionable focus of free air in the epigastrium. Recommend follow-up upright abdominal radiograph. Diffuse gaseous distention of large bowel is nonspecific. Electronically Signed: Zeke Sinha, at 20:01 EST Tel , Service support , ADDENDUM: 03/30/192021 IMPRESSION: Findings consistent with CHF/fluid overload. Questionable focus of free air in the epigastrium. Recommend follow-up upright abdominal radiograph. Diffuse gaseous distention of large bowel is nonspecific. N.B. : The above information has been verbally conveyed by Zeke Sinha to Marc Cantu MD, on 03/30/2019 20:15:28 (ET). Electronically Signed: Zeke Sinha, at 20:01 EST Tel , Service support , ADDENDUM: 03/30/192023 Abdomen/Pelvis CT 03/30/19 20:29 IMPRESSION: 1. Distention of the colon with air and fluid. There is no evidence of mass or inflammatory change. 2. A vague area of low attenuation in the upper pole of the right kidney with associated stranding of the perinephric fat. This had the appearance of a small cyst on the previous study. 3. Otherwise stable bilateral renal cysts. 4. Slight enlargement of the right lower pole renal calculus when compared to prior study. 5. Right hydronephrosis and ureterectasis without filling defect. 6. Stable enlargement of the prostate. 7. No other interval change. 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 Work-up was consistent with sepsis secondary to UTI. 1. Sepsis secondary to UTI with E. coli secondary to use of PRN straight cath as a result of chronic urinary retention in view of patient underlying paraplegia ?Admitted to regular nursing floor managed with IV fluids, antibiotics and cultures sent with plans to adjust antibiotics based on culture result ?03/31/2019; urine cultures came back positive for E. coli patient currently on appropriate antibiotic therapy. ?04/01/2019; has had only 1 low-grade fever for the past 24 hours 04/02/2019. Patient was deemed stable enough to be discharged prescription was written for Keflex 500 mg p.o. 3 times daily for 5 more days 2. Abdominal distention (differential diagnoses include ileus/small bowel obstruction/colonic obstruction ?Patient was seen on the morning of 03/30/2019 complaining of abdominal discomfort. Physical examination demonstrated significant abdominal distention Patient was kept n.p.o., an NG tube was inserted acute abdominal series ordered for subsequent evaluation. ?03/31/2019; did receive a call from allergy regarding possible air under the diaphragm. Repeat imaging studies ordered (upright as well as CT of the abdomen and consult placed to general surgery. Repeat imaging studies did not reveal any evidence of perforation. It was felt patient abdominal distention was secondary to colonic distention as a result of obstipation. General surgery recommended continuation of current management with enemas. ?04/01/2019; patient still remains significantly bloated. Patient did refuse magnesium citrate did advise the patient to try lactulose in addition to his scheduled senna ?04/02/2019 patient obstipation had resolved at the time of discharge 3. Essential hypertension Blood pressure controlled on lisinopril and nifedipine did continue 4. Paraplegia following traumatic neck fracture ?Supportive care patient apparently has chronic urinary retention for which patient undergoes periodic straight cath as needed 5. Hypokalemia ?Corrected per protocol with subsequent BMPs ordered for monitoring ?03/31/2019; potassium still remains low at 3.1 ?04/01/2019 potassium 3.4 this a.m. ?04/02/2019; prescription for potassium was written on discharge. 6. BPH ?Patient is on Flomax did continue 7. Peripheral neuropathy ?Patient is on gabapentin did continue 8. Depression Patient is on SSRI did continue 9. DVT prophylaxis ?On enoxaparin Patient Problems: Active and Suspected Problems (Last Reviewed 01/23/19 @ 10:43 by Lulu Rocha) E. coli UTI (urinary tract infection) (Acute) Objective: GENERAL: Comfortable at rest HEENT: Atraumatic; EYES; Anicteric, Normal Conjunctiva NECK; supple, normal thyroid, RESPIRATORY: Diminished to auscultation CARDIOVASCULAR: Regular S1 S2, NEURO: Awake; SKIN: No Rash PSYCH; Flat affect - Physical Exam Vitals/I&O's: Vital Signs Temp Pulse Resp BP Pulse Ox 97.9 F 68 15 108/63 97 04/02/19 09:04 04/02/19 09:04 04/02/19 09:04 04/02/19 09:04 04/02/19 09:04 Oxygen Flow Rate (L/min) 1 Oxygen Delivery Method Room Air Weight: 103.4 kg Body Mass Index (BMI) 33.6 Intake and Output for Last 24 Hours 03/31/19 04/01/19 04/02/19 23:59 23:59 23:59 Intake Total 1080 / 1080 1570 / 1570 100 / 100 Output Total 2250 / 2250 1650 / 1650 425 / 425 Balance -1170 / -1170 -80 / -80 -325 / -325 Microbiology Past 72 Hours 03/29/19 13:05 Blood Culture (Wb) - Anticubital Left Blood Culture - Preliminary No growth in 48 hours. 03/29/19 13:00 Blood Culture (Wb) - Anticubital Right Blood Culture - Preliminary No growth in 48 hours. 03/29/19 13:17 Urine Catheter - Catheter Urine Culture - Final Presumptive E. coli Laboratory Results 04/02/19 06:18: WBC 7.2, RBC 4.27 L, Hgb 12.3 L, Hct 37.2 L, MCV 87.1, MCH 28.8, MCHC 33.1, RDW Std Deviation 45.8 H, RDW Coeff of Donna 14.4, Plt Count 157, MPV 10.8 04/02/19 06:18: Sodium 139, Potassium 3.1 L, Chloride 108 H, Carbon Dioxide 25.0, Anion Gap 6, BUN 26 H, Creatinine 1.06, Estim Creat Clear Calc 62.99, Est GFR (MDRD) Af Amer 88, Est GFR (MDRD) Non-Af 73, BUN/Creatinine Ratio 24.5 H, Glucose 103, Calcium 9.0 Current Medications Acetaminophen (Tylenol) 650 mg PO Q6H PRN PRN PRN Reason: HEADACHE/FEVER (T>100F) Last Admin: 03/31/19 09:06 Dose: 650 mg Documented by: Albuterol Sulfate (Ventolin Aerosols) 2.5 mg INHALATION Q2H PRN PRN PRN Reason: wheezing, dyspnea Ascorbic Acid (Vitamin C) 1,000 mg PO DAILY [facility] Last Admin: 04/01/19 11:20 Dose: 1,000 mg Documented by: Calamine/Phenol (Calmoseptine Ointment) 1 applic TOPICAL BID [facility]; Protocol Last Admin: 04/01/19 21:41 Dose: 1 applicatio Documented by: Citalopram Hydrobromide (Celexa) 20 mg PO QHS [facility] Last Admin: 04/01/19 21:48 Dose: 20 mg Documented by: Enoxaparin Sodium (Lovenox) 40 mg SC DAILY [facility] Last Admin: 04/01/19 11:19 Dose: 40 mg Documented by: [facility] Last Admin: 04/01/19 17:47 Dose: 600 mg Documented by: Glucagon () 1 mg IM .X1 PRN PRN Reason: Hypoglycemia Hydralazine HCl (Apresoline Iv) 10 mg IV Q4H PRN PRN PRN Reason: SBP > 160 Last Admin: 04/01/19 02:04 Dose: 10 mg Documented by: Ceftriaxone Sodium (Rocephin) 1 gm in 50 mls @ 100 mls/hr IV Q12 [facility] Last Infusion: 04/01/19 22:15 Dose: Infused Documented by: Dextrose (Dextrose 10%-Water) 250 mls @ 999 mls/hr IV .Q16M PRN; Protocol PRN Reason: HYPOGLYCEMIA Potassium Chloride () 10 meq in 100 mls @ 100 mls/hr IV BOLUS Q1H [facility] Stop: 04/02/19 12:59 Lisinopril (Zestril) 20 mg PO DAILY [facility] Last Admin: 04/01/19 11:20 Dose: 20 mg Documented by: Nifedipine (Procardia Xl) 30 mg PO DAILY@2200 [facility] Last Admin: 04/01/19 21:48 Dose: 30 mg Documented by: Ondansetron HCl (Zofran) 4 mg IV Q8H PRN PRN PRN Reason: NAUSEA/VOMITING Potassium Chloride (K-Dur) 40 meq PO X1 ONE Stop: 04/02/19 08:57 Potassium Chlor[facility]) [facility] Senna/Docusate Sodium (Senokot-S, Hallie-Colace) 2 tablet PO BID [facility] Last Admin: 04/01/19 21:47 Dose: 2 tablet Documented by: Sodium Chloride () 10 - 40 ml IV UD PRN PRN Reason: SALINE FLUSH Last Admin: 04/01/19 11:16 Dose: 10 ml Documented by: Tamsulosin HCl (Flomax) 0.4 mg PO QHS [facility] Last Admin: 04/01/19 22:59 Dose: Not Given Documented by: Vitamin E (Vitamin E) 400 units PO DAILY [facility] Last Admin: 04/01/19 11:20 Dose: 400 units Documented by: Discharge Diet: No Restrictions Home Medications: Medications to take at Discharge Lisinopril [Zestril] 20 mg PO DAILY 06/24/15 Tamsulosin HCl [Flomax] 0.4 mg PO QHS 06/24/15 ascorbic acid (vitamin C) 1,000 mg tablet 1,000 mg PO DAILY tab 02/14/18 gabapentin 300 mg capsule 600 mg PO BIDCM cap 02/14/18 vitamin E (dl, acetate) 400 unit capsule 400 unit PO DAILY 02/14/18 Cholecalciferol (Vitamin D3) [Vitamin D3] 400 unit PO DAILY 03/29/19 Citalopram [Celexa] 20 mg PO QHS 03/29/19 Nifedipine [Nifedipine ER] 30 mg PO DAILY 03/29/19 Cephalexin [Keflex] 500 mg PO Q8 #20 cap 04/02/19 Potassium Chloride [K-Dur] 20 meq PO BIDCM #60 tab 04/02/19 Senna/Docusate Sodium [Senokot-S] 2 tab PO BID #120 tab 04/02/19 Following Prescrptions Were Given to Patient: Potassium Chloride [K-Dur] 20 meq PO BIDCM #60 tab Transmission Status: Received by [facility] #30 Cephalexin [Keflex] 500 mg PO Q8 #20 cap Transmission Status: Received by [facility]30 Senna/Docusate Sodium [Senokot-S] 2 tab PO BID #120 tab Transmission Status: Received by [facility]30 Primary Care Physician: Tunde Beard DO [Primary Care Provider] - Please follow up with your Primary Care Physician in: in 5-7 days Disposition: Home Minutes spent on discharge:: 40 Patient Condition:: Stable Medical Necessity - Tobacco Use Smoking Status: Never smoker Meaningful Use Info Meaningful Use Diagnoses (Choose all that apply): None applicable Code Visit Inpatient E&M: 27785 Disch Hosp
[2019-04-02] MEDS: Senna/Docusate Sodium 1 Tablet 2 TABLET PO (09:29)
[2019-04-02] MEDS: Ascorbic Acid 500 MG Tablet 1000 MG PO (09:29)
[2019-04-02] MEDS: Lisinopril 20 MG Tablet PO (09:29)
[2019-04-02] MEDS: Vitamin E 400 UNITS Capsule PO (09:29)
[2019-04-02] MEDS: Ceftriaxone 1 GM/50 ML BAG IV (09:29)
[2019-04-02] MEDS: Potassium Chloride 10mEq/100mL 10 MEQ/100 ML IV.SOLN. 100 MEQ IV BOLUS ×4 (11:13→15:19)
[2019-04-02] MEDS: 0.9% Saline Lock 10 ML Syringe IV (11:14)
--- NOTE | 2019-04-02 13:25 | NURSING ---
Urinary straight catheterization completed by [place] nurse tech.
[2019-04-02 13:57] VITALS: BP 111/65; PULSE 73; RESP 16; TEMP 36.8; O2SAT 94
--- NOTE | 2019-04-02 17:00 | NURSING ---
Discharge teaching provided to patient and spouse. Questions answered. Patient and voiced understanding of same.
--- NOTE | 2019-04-03 14:26 | CASEMGMT ---
PRUDENCIO CM Discharge Follow-up Phone Call: SANDOR: Elizabeth Strata: 4 Call Date: 04/03/2019 Discharge Date: 04/02/2019 Time of Call: 1425 Duration: 0 Admitting Diagnosis: Sepsis/UTI Discharge follow-up call placed to pt. Nonidentifying voicemail received. Vague message left requesting a return call. Breana Lambert RN
--- NOTE | 2019-04-03 16:51 | CASEMGMT ---
PRUDENCIO Discharge Follow-up Phone Call: Pt returned call. Pt states he is feeling better since discharge. Pt states he obtained his prescriptions at discharge and has been taking them as prescribed. Pt states he attempted to call his PCP this AM to schedule a follow-up appointment but is awaiting a return call from the physician's office. Pt states he still feels weak. Pt states he regularly goes to [facility] 5 days/week. Pt explained that he rides the bike and lifts weights. Pt states he has friends there that encourage him. He plans to return to [facility] by Wednesday to begin exercising again. Discussed the open areas on his buttocks. Pt states he has been trying to stay off of them but relayed that while lying in bed he lays on his back. He stated that last night he did wake up with pain at the sites. Encouraged pt to lie on his side and use pillows to prop himself if needed. Pt stated he will try this tonight. Pt denied any questions, concerns, or needs at this time. Breana Lambert RN
== END 2019-04-02 17:23 | disposition home or self-care (01) | DRG 698 ==
LOC: ED 12:53 → PCU 16:32
PROVIDERS: Surgery; Admitting Provider Student in an Organized Health Care Education/Training Program; Emergency Provider Emergency Medicine; Family Provider Preventive Medicine Occupational Medicine; PCP Preventive Medicine Occupational Medicine; Visit Provider Internal Medicine
DX: T83.511A Infection and inflammatory reaction due to indwelling urethral catheter, initial encounter (principal); A41.51 Sepsis due to Escherichia coli [E. coli]; N30.00 Acute cystitis without hematuria; G82.20 Paraplegia, unspecified; B96.20 Unspecified Escherichia coli [E. coli] as the cause of diseases classified elsewhere; K59.00 Constipation, unspecified; I10 Essential (primary) hypertension; N40.0 Benign prostatic hyperplasia without lower urinary tract symptoms; E87.6 Hypokalemia; F32.9 Major depressive disorder, single episode, unspecified; G62.9 Polyneuropathy, unspecified; E66.9 Obesity, unspecified; Z68.33 Body mass index [BMI] 33.0-33.9, adult; I71.4 Abdominal aortic aneurysm, without rupture; D64.9 Anemia, unspecified; S14.129D Central cord syndrome at unspecified level of cervical spinal cord, subsequent encounter; W19.XXXD Unspecified fall, subsequent encounter; Z95.0 Presence of cardiac pacemaker; Z79.899 Other long term (current) drug therapy
CPT/HCPCS: 36415; 71046; 74018; 74022; 74177; 80048; 81001; 83605; 83735; 84132; 85025; 85027; 87040; 87086; 87088; 87186; 94640; 97162; 97166; 99285; J7030; P9612; Q9967; A4216

== ENCOUNTER → 2019-04-10 17:51 | Outpatient (CLI) | payer MEDICARE, OTHER, SELFPAY ==
[2019-03-29 17:02] VITALS: BMI 33.6
== END ==
PROVIDERS: PCP Preventive Medicine Occupational Medicine; Referring Provider Urology; Visit Provider Urology
DX: N39.0 Urinary tract infection, site not specified (principal)
CPT/HCPCS: 87077; 87086; 87088; 87186

== ENCOUNTER 2019-04-18 11:03 | Outpatient (RCR) | payer MEDICARE, OTHER, SELFPAY ==
[2019-03-29 17:02] VITALS: BMI 33.6
== END 2019-04-18 23:59 | disposition home or self-care (01) ==
LOC: NS 11:03
PROVIDERS: Family Provider Preventive Medicine Occupational Medicine; PCP Preventive Medicine Occupational Medicine
DX: Z71.3 Dietary counseling and surveillance (principal)
CPT/HCPCS: 97803

== ENCOUNTER → 2019-05-08 | Outpatient (CLI) | payer MEDICARE, OTHER, SELFPAY ==
[2019-03-29 17:02] VITALS: BMI 33.6
== END | disposition home or self-care (01) ==
LOC: LABSPEC 15:46
PROVIDERS: PCP Preventive Medicine Occupational Medicine; Referring Provider Urology; Visit Provider Urology
DX: N39.0 Urinary tract infection, site not specified (principal)
CPT/HCPCS: 87077; 87086; 87088; 87186

== ENCOUNTER → 2019-10-16 | Outpatient (CLI) | payer MEDICARE, OTHER, SELFPAY ==
[2019-07-24 10:50] VITALS: BMI 33.6
== END | disposition home or self-care (01) ==
LOC: LABSPEC 16:49
PROVIDERS: PCP Preventive Medicine Occupational Medicine; Referring Provider Nurse Practitioner Adult Health; Visit Provider Nurse Practitioner Adult Health
DX: R31.9 Hematuria, unspecified (principal)
CPT/HCPCS: 87077; 87086; 87088; 87186

== ENCOUNTER → 2019-11-29 | Outpatient (CLI) | payer MEDICARE, OTHER, SELFPAY ==
[2019-07-24 10:50] VITALS: BMI 33.6
== END | disposition home or self-care (01) ==
PROVIDERS: PCP Preventive Medicine Occupational Medicine; Referring Provider Nurse Practitioner Adult Health; Visit Provider Nurse Practitioner Adult Health
DX: N39.0 Urinary tract infection, site not specified (principal)
CPT/HCPCS: 87077; 87086; 87088; 87186

== ENCOUNTER → 2019-12-15 09:25 | Outpatient (CLI) | payer MEDICARE, OTHER, SELFPAY ==
[2019-07-24 10:50] VITALS: BMI 33.6
== END ==
PROVIDERS: PCP Preventive Medicine Occupational Medicine; Referring Provider Student in an Organized Health Care Education/Training Program; Visit Provider Student in an Organized Health Care Education/Training Program
DX: R50.9 Fever, unspecified (principal)
CPT/HCPCS: 87635; C9803; U0003

== ENCOUNTER → 2020-04-15 | Outpatient (CLI) | payer MEDICARE, OTHER, SELFPAY ==
[2020-03-25 09:48] VITALS: BMI 35.4
== END | disposition home or self-care (01) ==
LOC: LABSPEC 14:12
PROVIDERS: PCP Preventive Medicine Occupational Medicine; Referring Provider Urology; Visit Provider Urology
DX: N39.0 Urinary tract infection, site not specified (principal)
CPT/HCPCS: 87086; 87088

== ENCOUNTER 2020-08-30 09:00 | Outpatient (RCR) | payer MEDICARE, OTHER, SELFPAY ==
[2020-03-25 09:48] VITALS: BMI 35.4
--- NOTE | 2020-05-15 12:08 | HP.PTEVAL ---
Patient's Visit Information DANNY AQUINO is a 74 year old M referred to Physical Therapy by Dr. Tunde Beard DO with a diagnosis of LBP, LE weakness. Date of Evaluation: 05/15/20 Physical Therapist: Robert Lamb, PT, ATC - Visit Plan Frequency: 2-3x /Week Duration: 4-6 Weeks Plan: B LE strengthening, core stab ex's, gait training, balance and proprio, nustep, and HEP - Subjective Pt reports he broke his neck approximately 5 years ago when he fainted and fell. Pt reports he was not able to move his LE's at that time, only his UE's. Pt reports he has had PT a couple times in the past to help with his LE's, but notes he has always had LE since. Pt notes he has had xrays of his LB which revealed OA. Pt reports he hopes to get a program to help with strengthening his legs as well as his LB. Pt notes he ambulates now with quad canes part of the time and is WC bound other times. Pt reports his ultimate goal would be to get down to one cane. Pt notes LBP only when he has been waliking. - Pain LBP Pain Intensity (Out of 10): 0 - Objective Neuro: B LE sensation is WNL to light touch. B patellar reflex= 2/3. MMT: B LE's are grossly rated at 4-/5. Gait: Pt is able to ambulate 170' feet with CGAx1 and 2 QC's. Transfers: Pt is SBA with sit to stand - Goals Goal 1:: Decrease LBP x 50% to aid with standing tolerance Goal Time Frame: 4-6 Weeks Goal 2:: Pt will be able to ambulate greater than 400 feet with LRD to aid with community ambulation Goal Time Frame: 4-6 Weeks Goal 3:: Increase B LE strength x 1 grade to aid with ambulation Goal Time Frame: 4-6 Weeks Goal 4:: I with HEP Goal Time Frame: 4-6 Weeks - Rehabilitation Potential Physical Therapy Diagnosis: Pt has LBP, LE weakness, and intolerance for prolonged ambulation secondary to degenerative changes Rehabilitation Potential: Good - Anticipated Interventions Patient/Client Instruction: Educate patient on: Condition, Plan of Care For the Purpose of:: To improve self management Therapeutic Exercise to Include: Strength training, Endurance training, Balance training, Postural training, Flexibilty training, Gait and locomotor training, Dynamic Lumbar Stabilization For the Purpose of:: To decrease pain, To improve muscle performance and motor function Thank you for the opportunity to evaluate your patient. For Medicare and Medicare HMO plans, please review the plan of care and approve it. It will need to be FAXED BACK to us at [phone] for Medicare purposes. For Medicare only, by signing this I certify the plan of care. Please let me know if there are questions or concerns regarding this plan of care. Physician Signature: Date:
--- NOTE | 2020-12-16 15:20 | HP.PT.NRP ---
DANNY AQUINO was seen in my office for initial evaluation on 05/15/20. The following Plan of Care was established for this patient: Initial Frequency: 2-3x /Week Initial Duration: 4-6 Weeks Patient/Client Instruction: Educate patient on: Condition, Plan of Care For the Purpose of:: To improve self management Therapeutic Exercise to Include: Strength training, Endurance training, Balance training, Postural training, Flexibilty training, Gait and locomotor training, Dynamic Lumbar Stabilization For the Purpose of:: To decrease pain, To improve muscle performance and motor function This patient was last seen in our office . Pertinent comments regarding their Physical therapy will appear below: Pt was treated for 26 visits for LBP through the date of 08/30/20. Pt has not returned through todays date and is discontinued at this time. At this point I will be discontinuing this patient from physical therapy. I would be happy to see this patient again in the future if found appropriate by the physician. Thank you! Robert Lamb, PT, ATC Balance/Gait/Functional tests - Balance/Special Test Scores Oswestry Low Back Score: 23
== END 2020-08-30 19:00 | disposition home or self-care (01) ==
LOC: PT 09:00
PROVIDERS: PCP Preventive Medicine Occupational Medicine; Referring Provider Preventive Medicine Occupational Medicine; Visit Provider Preventive Medicine Occupational Medicine
DX: M54.5 Low back pain (principal)
CPT/HCPCS: 97110; 97161; 97164

== ENCOUNTER → 2020-10-07 08:53 | Outpatient (CLI) | payer MEDICARE, OTHER, SELFPAY ==
[2020-09-25 09:00] VITALS: BMI 35.4
--- NOTE | 2020-10-07 09:00 | AAVD_ITS ---
Reason For Study: AAA Aorta Measurements Aorta Doppler Measurements Proximal aorta measures2.0 x 2.0cm. in cross- Peak systolic flow velocities within the proximal sectional axis. aorta measure 59 cm/sec. Proximal aorta measures1.9cm. in longitudinal Peak systolic flow velocities within the mid aorta axis. measure 66 cm/sec. Mid aorta measures1.9 x 1.9cm. in cross-sectional Peak systolic flow velocities within the distal axis. aorta measure 69 cm/sec. Mid aorta measures1.9cm. in longitudinal axis. Distal aorta measures1.9 x 1.9cm. in cross- sectional axis. Distal aorta measures1.9cm. in longitudinal axis. Left Iliac Artery Left iliac artery measures 1.3 x 1.3 cm. in the longitudinal axis. Left iliac artery measures 1.3 cm. in the cross-sectional axis. Peak systolic velocity in the left iliac artery measures 67 cm/sec. Right Iliac Artery Right iliac artery measures 1.4 x 1.4 cm. in the longitudinal axis. Right iliac artery measures 1.4 cm. in the cross-sectional axis. Peak systolic velocity in the right iliac artery measures 74 cm/sec. Procedure Aorta IVC Iliac vasculature or bypass grafts [id number]. Technically difficult. Exam performed in department. VL/Abd Aortic/IVC Duplex scan Interpretation Summary No aortic iliac aneurysm or stenosis noted. Ordering Physician: Anurag Unger Referring Physician: MALLORY MCPHERSON Performed By: Rosalva Lopez, WILLIAMS, RVT
== END ==
PROVIDERS: PCP Preventive Medicine Occupational Medicine; Referring Provider Nurse Practitioner Family; Visit Provider Nurse Practitioner Family
DX: I71.4 Abdominal aortic aneurysm, without rupture (principal)
CPT/HCPCS: 93978

== ENCOUNTER → 2020-12-16 10:28 | Outpatient (CLI) | payer MEDICARE, OTHER, SELFPAY ==
--- NOTE | 2020-12-16 10:38 | US_ITS ---
STUDY: RENAL ULTRASOUND - COMPLETE REASON FOR EXAM: Male, 75 years old. NEUROMUSCULAR DYSFUNCTION OF BLADDER TECHNIQUE: Ultrasound evaluation of the kidneys was performed with real-time and static whatley-scale imaging. COMPARISON: CT scan abdomen and pelvis March 30, 2019 FINDINGS: RIGHT KIDNEY: Normal location of the right kidney, which is normal in size. The right kidney measures 13 x 5.4 x 4.8 cm. Echogenic cortex. The renal cortex measures 3.9 cm. Is a right renal cyst measuring 1.5 x 1.3 cm with through transmission. There is a cyst measuring 4.7 mm. There is a cyst measuring 1.9 x 1.6 x 1.1 cm. Stone seen in the right kidney on prior study is not well visualized on this study. There is no right hydronephrosis. DISTAL RIGHT URETER: There is non-visualization of the distal right ureter. There is no demonstrated right ureterovesical junction calculus. There is a visualized right ureteral jet. LEFT KIDNEY: Normal location of the left kidney, which is normal in size. The left kidney measures 13.7 x 6.3 x 6 cm. Echogenic cortex. The renal cortex measures 0.9 cm. There is a left renal cyst lower pole with some through transmission measuring 3.9 x 3.4 cm there is one measuring 2.7 x 2.0 cm. There are several cysts demonstrated. There is a possible calcification associated with this cyst measuring 2.0 x 2.0 cm in the midpole. There are no left renal calculi. There is no left hydronephrosis. DISTAL LEFT URETER: There is non-visualization of the distal left ureter. There is no demonstrated left ureterovesical junction calculus. There is a visualized left ureteral jet. BLADDER: The distended urinary bladder has a volume of 597.23 ml. The empty urinary bladder has a volume of 139.61 ml. There is diffuse abnormal thickening of the wall of the bladder. In addition there are numerous outpouchings or diverticula. On the right, there is one measuring 3.2 x 1.9 x 1.8 cm. On the right superiorly there is one measuring 1.5 x 0.99 cm. The prostate is partially visualized and is enlarged measuring at least 6.0 x 5.2 x 5.2 cm with inhomogeneity. This is similar to the prior study. US/Kidney and Bladder IMPRESSION: Residual poor emptying of the bladder. Multiple bladder diverticula wall thickening consistent with cystitis. High residual, Likely due to chronic outlet obstruction from prostate enlargement. Bilateral renal cortical thinning bilateral renal cyst similar to the prior study. Given that one appears to have possible calcification associated with the cyst in the midpole of the left kidney recommend 6 month serial follow-up study. No hydronephrosis. Electronically Signed: Perla Levin MD at 8:04 EDT Tel , Service support ,
== END ==
PROVIDERS: PCP Preventive Medicine Occupational Medicine; Referring Provider Nurse Practitioner Adult Health; Visit Provider Nurse Practitioner Adult Health
DX: N31.9 Neuromuscular dysfunction of bladder, unspecified (principal)
CPT/HCPCS: 76770

== ENCOUNTER → 2021-03-05 10:43 | Outpatient (CLI) | payer MEDICARE, OTHER, SELFPAY | PROVIDERS: PCP Preventive Medicine Occupational Medicine; Referring Provider Internal Medicine Cardiovascular Disease; Visit Provider Internal Medicine Cardiovascular Disease | DX: I49.8 Other specified cardiac arrhythmias (principal); R55 Syncope and collapse; R06.02 Shortness of breath; R42 Dizziness and giddiness | CPT/HCPCS: 93225; 93226 ==

== ENCOUNTER 2021-05-07 10:45 | Outpatient (RCR) | payer SELFPAY | END 2021-05-07 19:00 | disposition home or self-care (01) | LOC: MASS 10:45 | PROVIDERS: Family Provider Preventive Medicine Occupational Medicine; PCP Preventive Medicine Occupational Medicine | DX: Z00.00 Encounter for general adult medical examination without abnormal findings (principal) ==

== ENCOUNTER 2021-05-28 09:38 | Outpatient (CLI) | payer MEDICARE, OTHER, SELFPAY ==
--- NOTE | 2021-05-28 09:43 | US_ITS ---
INDICATION: DYSFUNCTION OF BLADDER EXAMINATION: Ultrasound US Kidney(s) complete (eg, kidneys and bladder) TECHNIQUE: Alfredo scale and color doppler images were obtained of the kidneys. COMPARISON: Ultrasound kidneys from 05/28/2021 FINDINGS: RIGHT KIDNEY: 12.9 x 4.9 x 5.4 cm. No hydronephrosis. Chronic thinning of the cortex. No echogenic calculi. There are 3 stable renal cysts, the largest measuring up to 1.8 cm in the lower pole. No solid masses. LEFT KIDNEY: 12.6 x 6.5 x 7.1 cm. No hydronephrosis. Chronic thinning of the cortex. No echogenic calculi. There are 3 stable renal cysts, the largest measuring up to 4.1 cm in the lower pole. No solid masses. URINARY BLADDER: Redemonstration of multiple bladder diverticuli and prominence of the prostate. There is mild diffuse bladder wall thickening measuring up to 5.2 mm in width which is slightly more conspicuous than previous study. Bladder volume measures 259.53 cc. Postvoid images were not obtained as patient self catheterizes. US/Kidney and Bladder IMPRESSION: 1. No acute findings. 2. Mild diffuse bladder wall thickening, slightly more prominent than previous studies chronic in nature. 3. Stable renal cysts. 4. Stable bladder diverticula and prostatomegaly. Electronically Signed: Benji Leong, at 11:05 EDT ,
== END 2021-05-28 23:59 | disposition home or self-care (01) ==
LOC: US 09:42
PROVIDERS: PCP Preventive Medicine Occupational Medicine; Referring Provider Urology; Visit Provider Urology
DX: N40.1 Benign prostatic hyperplasia with lower urinary tract symptoms (principal); N31.9 Neuromuscular dysfunction of bladder, unspecified
CPT/HCPCS: 76770

== ENCOUNTER 2021-05-30 09:56 | Outpatient (CLI) | payer MEDICARE, OTHER, SELFPAY ==
--- NOTE | 2021-05-30 10:04 | ECHOD_ITS ---
Reason For Study: Afib, Aflutter Procedure This was a 2D Doppler, Color Flow transthoracic echocardiogram. The study was technically difficult. Exam performed in department. Left Ventricle Normal LV size. Left ventricular systolic function is normal. The estimated ejection fraction is 65 %. No evidence for diastolic dysfunction. No regional wall motion abnormalities noted. Right Ventricle Normal RV size. ICD or pacer leads identified within the right ventricle. Normal systolic function. Atria Normal left atrium. Normal right atrium. ICD or pacer leads identified within the right atrium. No doppler evidence for ASD. Mitral Valve There is no mitral annular calcification. Normal mitral valve. Mild (1+) mitral valve insufficiency. Tricuspid Valve Normal tricuspid valve. Trivial tricuspid valve insufficiency. Right ventricular systolic pressure estimated to be 24 mmHg. Aortic Valve The aortic valve is not well visualized. Pulmonic Valve The pulmonic valve is not well visualized. Great Vessels Normal sized aortic root. Pericardium/Pleural Trivial pericardial effusion. There are no echocardiographic indications of cardiac tamponade. MMode/2D Measurements & Calculations LVIDd: 4.8 cm IVSd: 1.6 cm Ao root diam: 3.3 cm LVIDs: 3.1 cm LVPWd: 1.5 cm RVDd: 3.1 cm FS: 34.8 % LAV(MOD-bp): 47.0 ml LVAd ap4: 23.7 cm2 SV(MOD-sp4): 38.5 ml LAV(MOD-bp) Indexed: 21.1 ml/m2 LVLd ap4: 7.9 cm LAV(MOD-sp2): 65.3 ml EDV(MOD-sp4): 59.4 ml LAV(MOD-sp4): 33.6 ml EDV(sp4-el): 60.4 ml LVAs ap4: 12.7 cm2 LVLs ap4: 6.6 cm ESV(MOD-sp4): 21.0 ml ESV(sp4-el): 20.5 ml EF(MOD-sp4): 64.7 % EF(sp4-el): 66.1 % SV(sp4-el): 39.9 ml LA A4 area: 15.9 cm2 LA dimension(2D): 4.7 cm RA A4 area: 14.9 cm2 Doppler Measurements & Calculations MV E max kevin: 58.9 cm/sec Lat Peak E' Kevin: 4.6 cm/sec Med Peak E' Kevin: 5.1 cm/sec MV A max kevin: 86.6 cm/sec E/E' lat: 12.7 E/E' med: 11.5 MV E/A: 0.68 Ao V2 max: 128.8 cm/sec LV V1 max: 98.6 cm/sec PA V2 max: 72.3 cm/sec Ao max P.6 mmHg LV V1 max P.9 mmHg Ao V2 mean: 89.8 cm/sec Ao mean P.5 mmHg Ao V2 VTI: 20.6 cm TR max kevin: 229.2 cm/sec TR max P.0 mmHg ECHO/Echo Complete Interpretation Summary The study was technically difficult. Left ventricular systolic function is normal. The estimated ejection fraction is 65 %. Mild (1+) mitral valve insufficiency. Trivial tricuspid valve insufficiency. Trivial pericardial effusion. There are no echocardiographic indications of cardiac tamponade. Right ventricular systolic pressure estimated to be 24 mmHg. No evidence for diastolic dysfunction. ICD or pacer leads identified within the right atrium ICD or pacer leads identified within the right ventricle. Ordering Physician: Ignacio Quan Referring Physician: Tunde Beard Performed By: Marcy Unger, EMILYCS, RVT
== END 2021-05-30 23:59 | disposition home or self-care (01) ==
PROVIDERS: PCP Preventive Medicine Occupational Medicine; Visit Provider Internal Medicine Cardiovascular Disease
DX: I49.8 Other specified cardiac arrhythmias (principal); I48.91 Unspecified atrial fibrillation; R94.31 Abnormal electrocardiogram [ECG] [EKG]
CPT/HCPCS: 93306

== ENCOUNTER 2021-07-12 09:15 | Emergency (ER) | payer MEDICARE, OTHER, SELFPAY ==
[2021-07-12] VITALS (7 sets, daily range): BP systolic 124–138; BP diastolic 69–77; PULSE 59–68; RESP 18–22; TEMP 36.4–36.6; O2SAT 93–96; BMI 34.1
--- NOTE | 2021-07-12 09:16 | EKG12_ITS ---
Test Reason : STROKE Blood Pressure : / mmHG Vent. Rate : 067 BPM Atrial Rate : 067 BPM P-R Int : 246 ms QRS Dur : 094 ms QT Int : 466 ms P-R-T Axes : 069 058 079 degrees QTc Int : 492 ms Atrial-paced rhythm with prolonged AV conduction Prolonged QT Abnormal ECG Confirmed by MAICO PITTS, DANNY ([id number]), editor newspaper HARJIT MARIN ([id number]) on 07/14/2021 11:29:46 AM Referred By: GUZMAN Confirmed By:DANNY NINA MD
--- NOTE | 2021-07-12 09:22 | CT_ITS ---
STUDY: CT HEAD STROKE PROTOCOL W/O CONTRAST INJECTION REASON FOR EXAM: Male, 76 years old. Neuro deficit, acute, stroke suspected RADIATION DOSAGE (If Supplied By Facility): CTDIvol = ( ) mGy, DLP = ( ) mGycm TECHNIQUE: Transaxial CT imaging of the brain was performed without administration of intravenous contrast material. Individualized dose optimization techniques were used for this CT. COMPARISON: 02/01/2015 FINDINGS: Normal soft tissue structures. Normal calvarium. There is mild cerebral atrophy with widening of the extra-axial spaces and ventricular dilatation. There are areas of decreased attenuation within the white matter tracts of the supratentorial brain, consistent with microvascular disease changes. Normal basal ganglia and thalami. Normal brainstem. Normal cerebellum. There is no intracranial hemorrhage. There are no findings of an acute ischemic infarction. Normal visualized paranasal sinuses. ASPECT score: CT/STROKE Brain/Head without Cont IMPRESSION: Chronic involutional changes of the brain. N.B. : The above Results were Read Back by Dejuan Mckeon MD to Lora Hicks and understanding confirmed on 07/12/2021 09:45:33 (ET). Electronically Signed: Dejuan Mckeon MD at 9:45 EDT ,
--- NOTE | 2021-07-12 09:30 | CT_ITS ---
STUDY: CTA HEAD AND NECK WITH CONTRAST REASON FOR EXAM: Male, 76 years old. cva RADIATION DOSAGE (If Supplied By Facility): CTDIvol = ( 24.33 ) mGy, DLP = ( 861.72 ) mGycm TECHNIQUE: CT angiography was performed with a multi-detector CT scanner. Data acquisition was obtained from the skull base through the vertex following intravenous administration of 100ML OF ISOVUE 370. MIP images were reconstructed from the axial data set. Post-processing of the angiographic images was performed, with multiplanar reformation and 3D reconstruction. Individualized dose optimization techniques were used for this CT. COMPARISON: No relevant priors. FINDINGS: Normal bilateral petrous carotid arteries. There is calcified plaque formation of the right cavernous carotid artery, without a cross-sectional luminal stenosis. There is calcified plaque formation of the left cavernous carotid artery, without a cross-sectional luminal stenosis. Normal right A1 segments of the anterior cerebral artery. 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 Normal intact anterior communicating artery (ACOM). 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 The remainder the anterior cerebral arteries are widely patent. Normal right M1 and M2 segments of the middle cerebral arteries, with a normal M1 bifurcation. Normal left M1 and M2 segments of the middle cerebral arteries, with a normal M1 bifurcation. Normal right posterior communicating artery (PCOM). Normal left posterior communicating artery (PCOM). Normal bilateral vertebral arteries. Normal basilar artery with a normal basilar bifurcation. The visualized bilateral superior cerebellar (SCA) arteries are normal. Normal bilateral P1, P2 and visualized P3 segments of the posterior cerebral arteries. There is no demonstrated aneurysm of the [place]. There is no demonstrated abnormality of the visualized brain. AORTIC ARCH: Normal visualized aortic arch. Normal origins of the brachiocephalic, left common carotid, and left subclavian arteries. RIGHT CAROTID ARTERIES: Normal right common carotid artery (CCA). There is mild atherosclerotic plaque formation with minimal narrowing of the right carotid bulb. Normal origin of the right internal carotid (ICA) artery without a hemodynamically significant stenosis. Normal visualized cervical portion of the right internal carotid artery. Normal origin of the right external carotid artery (ECA). LEFT CAROTID ARTERIES: Normal left common carotid artery (CCA). There is mild atherosclerotic plaque formation with minimal narrowing of the left carotid bulb. There is mild atherosclerotic plaque formation of the origin of the left internal carotid artery with less than 50% cross sectional diameter stenosis. g Normal origin of the left external carotid artery (ECA). VERTEBRAL ARTERIES: Normal bilateral vertebral arteries. CT/STROKE CTA Head AND Neck W/Con IMPRESSION: 1. No major vessel occlusion within the head. 2. 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 3. No right carotid stenosis. 4. Mild (20%) left carotid stenosis. 5. Patent vertebral arteries bilaterally. N.B. : The above Results were Read Back by Dejuan Mckeon MD to PHIL cox, and understanding confirmed on 07/12/2021 10:08:49 (ET). Electronically Signed: Dejuan Mckeon MD at 10:10 EDT ,
--- NOTE | 2021-07-12 09:40 | ED.VIS.STROK ---
HPI History of Present Illness Chief Complaint: Neuro S/Sx Informant: spouse/S.O. and EMS Onset/Context/Timing Onset: Today Context: Sudden Onset Narrative Narrative: Patient presents via EMS as a stroke alert. Per patient was awake and interactive this morning. At approximately 845 he fell trying to get out of bed. He does have a history of paraplegia and is in a wheelchair. states that after this he was not able to speak. EMS notes significant right side weakness. He was not able to speak. Past medical history and medication list was reviewed in the computer. This does include Eliquis, however is now at bedside and states that the Eliquis was filled but never started. She states her is not on any blood thinners. [facility] Medical History Atrial fibrillation BPH (benign prostatic hypertrophy) Central cord syndrome Cervical spinal stenosis Degenerative joint disease (DJD) of lumbar spine Depression Essential hypertension Family history of hypertension History of DVT (deep vein thrombosis) History of spinal cord injury Neurogenic bladder Premature ventricular contractions Sick sinus syndrome Spinal cord injury Home Medications lisinopril 20 mg PO DAILY 06/24/15 [History Last Taken 03/28/19] ascorbic acid (vitamin C) 1,000 mg tablet 1,000 mg PO DAILY tab 02/14/18 [History Last Taken 03/28/19] vitamin E (dl, acetate) 180 mg (400 unit) capsule 400 unit PO DAILY 02/14/18 [History Last Taken 03/28/19] cholecalciferol (vitamin D3) 400 unit PO DAILY 03/29/19 [History Last Taken 03/28/19] citalopram 20 mg PO QHS 03/29/19 [History Last Taken 03/28/19] nifedipine 30 mg tablet,extended release See Rx Instructions .ROUTE .COMPLEX #90 tab 08/05/20 [Rx Last Taken Unknown] calcium and magnesium carbonates oral suspension 30 ml PO DAILY PRN 09/25/20 [History Last Taken Unknown] gabapentin 600 mg tablet See Rx Instructions PO BID 09/25/20 [History Last Taken Unknown] Allergy/AdvReac Type Severity Reaction Status Date / Time ciprofloxacin [From Cipro] Allergy Hives Verified 07/12/21 09:25 sulfamethoxazole Allergy PT UNSURE Verified 07/12/21 09:25 [From Bactrim] OF REACTION trimethoprim [From Bactrim] Allergy PT UNSURE Verified 07/12/21 09:25 OF REACTION Family History Mother Breast cancer Cancer Brain cancer Sister Diabetes Hypertension CHF (congestive heart failure) Kidney disease Sister CHF (congestive heart failure) Cardiac defibrillator in situ Other Family history of hypertension Surgical History History of neck surgery History of permanent cardiac pacemaker placement S/P cervical spinal fusion Social History Smoking Status: Never smoker alcohol intake: current alcohol intake frequency: holidays/special occasions only Alcohol type: wine substance use type: does not use caffeine: Yes Type: coffee Number of servings: 1 what type of physical activity do you participate in: other details: Health point frequency: 1-2 times per week duration: 45-60 minutes/day seatbelt use: always do you feel safe at home: Yes ROS ROS ED Review of Systems ROS Unobtainable: due to mental status EXAM Physical Exam Const Vital Signs: 07/12/21 09:35 07/12/21 09:42 07/12/21 09:56 Temperature 97.8 F 97.8 F 97.8 F Temperature Source Temporal Temporal Temporal Pulse Rate 62 68 65 Respiratory Rate 20 H 20 H 18 Blood Pressure 130/73 H 136/77 H 138/76 H Blood Pressure Mean 92 96 96 Blood Pressure Source Blood Pressure Position Blood Pressure Location Pulse Ox 95 95 96 Oxygen Delivery Method Room Air Nasal Cannula Nasal Cannula Oxygen Flow Rate (L/min) 2 2 07/12/21 10:00 07/12/21 10:15 Temperature 97.8 F Temperature Source Temporal Pulse Rate 61 59 L Respiratory Rate 20 H 22 H Blood Pressure 124/69 H 126/72 H Blood Pressure Mean 87 90 Blood Pressure Source Monitor Monitor Blood Pressure Position Sitting Supine Blood Pressure Location Left Arm Left Arm Pulse Ox 96 94 Oxygen Delivery Method Nasal Cannula Nasal Cannula Oxygen Flow Rate (L/min) 2 2 Positive obese Nutritional Appearance: obese HEENT Reports moist mucous membranes Eyes PERRL and EOMs intact bilaterally Neck supple Chest Wall inspection of chest normal Resp normal respiratory effort and clear to auscultation bilaterally Cardio Rate: regular rate Rhythm: regular rhythm GI soft to palpation and non-tender Neuro Neuro Narrative: See NIH stroke scale Sensorium / Orientation: alert STROKE Vital Signs/Narrative: Vital Signs Temp Pulse Resp BP Pulse Ox 07/12/21 10:15 59 L 22 H 126/72 H 94 07/12/21 10:00 97.8 F 61 20 H 124/69 H 96 07/12/21 09:56 97.8 F 65 18 138/76 H 96 07/12/21 09:42 97.8 F 68 20 H 136/77 H 95 07/12/21 09:35 97.8 F 62 20 H 130/73 H 95 NIHSS Initial: 1a Level of Consciousness: 0 1b LOC Questions (Score 2 if aphasic/stupor): 2 1c LOC Commands (Only score 1st attempt): 1 2 Best Gaze (If aphasic, use reflexive mvmts.): 1 4 Facial Palsy: 1 5 Motor Arm Right (UN = amputation/fusion): 2 5 Motor Arm Left: 2 9 Best Language: 3 10 Dysarthria (mute, coma=2, intubated=UN): 2 Total Score: 14 MDM MDM MDM Narrative Medical decision making narrative: Patient seen and the EMS bay immediately upon arrival. Patient able to lift both arms but did have some drift noted on the right. Patient centimeter to CT scan. Lab work obtained. Lab Data Labs: Laboratory Results - last 24 hr 07/12/21 07/12/21 07/12/21 09:37 09:37 09:37 WBC 6.2 RBC 4.22 L Hgb 12.8 L Hct 38.2 L MCV 90.5 MCH 30.3 MCHC 33.5 RDW Std Deviation 46.7 H RDW Coeff of Donna 14.2 Plt Count 157 MPV 10.7 Immature Gran % (Auto) 0.600 Neut % (Auto) 68.6 Lymph % (Auto) 19.2 Barren % (Auto) 8.2 Eos % (Auto) 2.9 Baso % (Auto) 0.5 Absolute Neuts (auto) 4.3 Absolute Lymphs (auto) 1.19 Nucleated RBC % 0 PT 14.3 INR 1.1 APTT 28.8 Sodium 139 Potassium 3.6 Chloride 110 H Carbon Dioxide 24.0 Anion Gap 5 BUN 19 H Creatinine 1.21 Estim Creat Clear Calc 59.61 Est GFR (MDRD) Af Amer 75 Est GFR (MDRD) Non-Af 62 BUN/Creatinine Ratio 15.7 Glucose 119 H Calcium 8.3 L Troponin I High Sens 9 Radiography Diagnostic Testing: Clinical Impression(s) from Imaging Studies Brain CT 07/12/21 09:22 IMPRESSION: Chronic involutional changes of the brain. N.B. : The above Results were Read Back by Dejuan Mckeon MD to Lora Hicks and understanding confirmed on 07/12/2021 09:45:33 (ET). Electronically Signed: Dejuan Mckeon MD at 9:45 EDT Reading Location ID and State: [id number] / [employer] Tel , Service support , ADDENDUM: 07/12/21951 IMPRESSION: Chronic involutional changes of the brain. N.B. : The above Results were Read Back by Dejuan Mckeon MD to Lora Hicks and understanding confirmed on 07/12/2021 09:45:33 (ET). Electronically Signed: Dejuan Mckeon MD at 9:45 EDT , Head/Neck CTA 07/12/21 09:30 IMPRESSION: 1. No major vessel occlusion within the head. 2. 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 3. No right carotid stenosis. 4. Mild (20%) left carotid stenosis. 5. Patent vertebral arteries bilaterally. N.B. : The above Results were Read Back by Dejuan Mckeon MD to PHIL hicks, and understanding confirmed on 07/12/2021 10:08:49 (ET). Electronically Signed: Dejuan Mckeon MD at 10:10 EDT Reading Location ID and State: [id number] / [employer] Tel , Service support , ADDENDUM: 07/12/21 1016 IMPRESSION: 1. No major vessel occlusion within the head. 2. 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 3. No right carotid stenosis. 4. Mild (20%) left carotid stenosis. 5. Patent vertebral arteries bilaterally. N.B. : The above Results were Read Back by Dejuan Mckeon MD to PHIL hicks, and understanding confirmed on 07/12/2021 10:08:49 (ET). Electronically Signed: Dejuan Mckeon MD at 10:10 EDT , EKG Initial EKG: Attestation: I personally reviewed and interpreted this EKG as follows: Comments: Paced rhythm at [address] change. Treatment and Re-Evaluation Narrative: Patient evaluated again on return from CT. Patient will say 1 or 2 word answers to questions appropriately, then start with gibberish. Radiologist called and reported no hemorrhage on initial head CT. Neurologist at [facility] beamed in on robot and examined the patient. With high degree of deficit they do recommend tPA. This was discussed with the and son at bedside and they agree. Patient does appear to have an M2 occlusion and will be flown to [facility] for possible retrieval. Radiologist to call with CTA result. Initial read was no evidence of occlusion. I did mention that the [facility] neurologist felt that there was an M2 occlusion. After further review he does agree with this interpretation. There is a small, 6 mm saccular aneurysm off the A2 segment of the ERIC. tPA is infusing at this time. Critical care transport is at bedside for transfer to [facility] Stroke Documentation Questions Stroke Team Activated: Yes Reviewed Inclusion/Exclusion criteria: Yes Was Patient considered for Endovascular Intervention?: Yes-CTA +,PT transferred for further eval of endovascular intervention IV Alteplase (t-PA) Administered: Yes No contraindications for IV Alteplase (t-PA) administration.: Yes Alteplase (t-PA) risks, benefits, alternative discussed: Yes Critical Care Time Critical care time (excluding procedures): 30-74 minutes (35 minutes), Including time spent:, Discussing w/Patient &/or Family/Mobile Security Architect, Discussing w/Consultants, Arranging Admission or Transfer and Performing Direct Patient Care at Bedside Discharge Plan Triage Chief Complaint: Neuro S/Sx ED Provider: Lora Hicks Dx/Rx/DC Orders Clinical Impression: Acute CVA (cerebrovascular accident) Prescriptions: No Action ascorbic acid (vitamin C) 1,000 mg tablet 1,000 mg PO DAILY RF: 0 vitamin E (dl, acetate) 400 unit capsule 400 unit PO DAILY RF: 0 gabapentin 600 mg tablet See Rx Instructions PO BID RF: 0 calcium and magnesium carbonat Suspension 30 ml PO DAILY PRN (Reason: (Drug) Ingestion) RF: 0 lisinopril 20 MG tablet 20 mg PO DAILY RF: 0 citalopram 20 MG tablet 20 mg PO QHS RF: 0 cholecalciferol (vitamin D3) 400 UNIT capsule 400 unit PO DAILY RF: 0 nifedipine 30 mg tablet extended release See Rx Instructions .ROUTE .COMPLEX Qty: 90 RF: 3 Primary Care Provider: Tunde Beard Referrals: Tunde Beard DO [Primary Care Provider] - Disposition Disposition: Acute Care Hospital Discharge Location: [facility]
[2021-07-12 09:53] LABS: Absolute Lymphocyte Count 1.19 X10^3/uL (0.83-4.51); Absolute Neutrophil Count 4.3 X10^3/uL (2.0-7.7); Basophil# 0.03 X10^3/uL; Basophil% 0.5 % (0-1); Eosinophil# 0.18 X10^3/uL; Eosinophils% 2.9 % (0-5); Hematocrit 38.2 % (40-54); Hemoglobin 12.8 g/dL (13.0-16.5); Lymphocyte # 1.19 X10^3/ul (0.83-4.51); Lymphocyte % 19.2 % (19-41); Mean Corp Hgb Conc 33.5 g/dL (32-36); Mean Corpuscular Hgb 30.3 pg (27.0-32.0); Mean Corpuscular Volume 90.5 fL (80-94); Mean Platelet Vol. 10.7 fl (6.2-12.0); Monocyte# 0.51 X10^3/uL; Monocyte% 8.2 % (0-10); NRBC Flagged by Analyzer 0 % (0-5); Neutrophil # 4.25 X10^3/uL (2.7-7.7); Neutrophil % 68.6 % (47-70); Platelet Count 157 K/mm3 (150-450); RBC Distribution Width CV 14.2 % (11.6-14.6); RBC Distribution Width SD 46.7 fl (35.1-43.9); Red Blood Count 4.22 M/mm3 (4.6-6.2); White Blood Count 6.2 K/mm3 (4.4-11.0)
[2021-07-12 09:58] LABS: International Normalized Ratio 1.1; Prothrombin Time (Protime)PT. 14.3 SECONDS (11.7-14.9)
[2021-07-12 09:59] LABS: Partial Thromboplast Time 28.8 Seconds (24.1-36.2)
[2021-07-12 10:08] LABS: Anion Gap 5 (5-15); BUN 19 mg/dL (7-18); BUN/Creat Ratio 15.7 RATIO (10-20); Calcium,Total 8.3 mg/dL (8.5-10.1); Chloride 110 mmol/L (98-107); Creatinine, Serum 1.21 mg/dL (0.70-1.30); EST Glomerular Filtration Rate 62 mL/min (>60); Est Glom Filt Rate - Afr Amer 75 mL/min (>60); Estimated Creatinine Clearance 59.61 ml/min; Glucose 119 mg/dL (74-106); Potassium 3.6 mmol/L (3.5-5.1); Sodium Level 139 mmol/L (136-145); Troponin-I HS 9 pg/mL (3.0-78.0)
[2021-07-12] MEDS: 0.9% Normal Saline 1,000 ML 100 ML IV (10:22)
--- NOTE | 2021-07-12 10:57 | ED.RN ---
PT TRANSPORTED FROM ED TO [facility]. AND SON AT BEDSIDE. THIS RN PROVIDED EDUCATION ON PT CONDITION AND MEDICATIONS. GIVEN DIRECTIONS TO [facility], INFORMED TO ENTER THERE THROUGH ED. PT TPA CONTINUED ON TRANSFER WITH FLIGHT TEAM. NS CONT. ON TRANSFER ALSO. SEE MAR FOR DOSES. PT MOVED FROM BED TO COT AT 1035. OUT OF DEPT AT 1040.
--- NOTE | 2021-07-12 11:06 | ED.RN ---
TRANSPORT TEAM GIVEN POST TPA 100 ML NORMAL SALINE FLUSH. TPA STILL INFUSING ON TRANSPORT OUT OF DEPT.
== END 2021-07-12 10:40 | disposition short-term general hospital (02) ==
PROVIDERS: Emergency Provider Emergency Medicine; PCP Preventive Medicine Occupational Medicine; Visit Provider Emergency Medicine
DX: I63.232 Cerebral infarction due to unspecified occlusion or stenosis of left carotid arteries (principal); G82.20 Paraplegia, unspecified; G83.89 Other specified paralytic syndromes; I48.91 Unspecified atrial fibrillation; I49.5 Sick sinus syndrome; I10 Essential (primary) hypertension; Z99.3 Dependence on wheelchair; F32.A Depression, unspecified; N40.0 Benign prostatic hyperplasia without lower urinary tract symptoms; M48.02 Spinal stenosis, cervical region; Z86.718 Personal history of other venous thrombosis and embolism; N31.9 Neuromuscular dysfunction of bladder, unspecified; Z79.899 Other long term (current) drug therapy; Z95.0 Presence of cardiac pacemaker; Z98.1 Arthrodesis status; E66.9 Obesity, unspecified; R29.714 NIHSS score 14; Z68.34 Body mass index [BMI] 34.0-34.9, adult
CPT/HCPCS: 51702; 70450; 70496; 70498; 80048; 84484; 85025; 85610; 85730; 93005; 96365; 99285; J2997; Q9967

== ENCOUNTER 2021-07-18 11:57 | Inpatient (IN) | payer MEDICARE, OTHER, SELFPAY ==
[2021-07-18 12:44] VITALS: BP 139/92; PULSE 77; RESP 18; TEMP 36.5; O2SAT 96; BMI 31.3
--- NOTE | 2021-07-18 13:36 | NURSING ---
Notified Dr. Gallardo of new med orders. Received order for Baclofen 10mg, 1 tablet qhs. Benzocaine-docusate sodium not available, Dr. Gallardo ordered soap suds enema in place. Order received for regular diet. Orders repeated back.
[2021-07-18 15:20] VITALS: BP 142/87; PULSE 90
[2021-07-18] MEDS: Gabapentin 100 MG Capsule 200 MG PO ×2 (15:28→22:49)
[2021-07-18] MEDS: Nystatin Powder 15gm Bottle 1 APPLIC TOPICAL ×2 (15:28→22:49)
--- NOTE | 2021-07-18 15:42 | HP.PCM_ITS ---
HPI - General General Date of Admission: 07/18/21 HPI Narrative 07/12/2021 DANNY AQUINO, is a 76 Male who presents to [facility] Emergency Department with neurologic signs/symptoms. Histor significant for C6 fracture, C5 incomplete tetraplegia, neurogenic bladder, neurogenic bowel, wheelchair bound, does not require assistance. 07/12/2021 EKG atrial paced rhythm with prolonged AV conduction, prolonged QT. 05/30/2021 Echo Left ventricular systolic function normal. EF 65%. Right ventricular systolic pressure 24mm HG. Stroke alert via EMS, fell trying to get out of bed. Unable to speak, right sided weakness. Talking gibberish. CT head negative for hemorrhage. Stroke neurologist recommend tPA, given. CTA head showed Left M2 occlusion, 6mm saccular aneurysm of A2 segment, anterior communicating artery. Transfer to [facility]. 07/12/2021 Admit to [facility]. Repeat CTA head negative for occlusion after tPA. Neurochecks, MRI brain, TTE for stroke. Aspirin 81mg daily if [address] head negative for hemorrhage. PT/OT/REGIONAL LIAISON. Mejía catheter for neurogenic bladder. 07/13/[address] head negative for hemorrhage, start aspirin and DVT prophylaxis. Pacemaker interrogation ordered. 07/14/2021 Pacemaker interrogation showed atrial fibrillation, MRI brain pending. Increase Lisinopril for improved blood pressure control. 07/15/2021 Diagnostic cerebral angiogram done for anterior communicating artery aneurysm. CT head shows acute left middle cerebral artery infarct involving parietal lobe, temporal lobe, posterior insula, deep white matter. LDL 90, HbA1c 5.2. Atorvastatin 40mg daily ordered. Stroke secondary to cardioembolic from atrial fibrillation. Decide anticoagulation for atrial fibrillation after MRI of brain. Urine culture growing strep agalactiae. Neurosurgery will follow up as outpatient for anterior communicating artery aneurysm. MRI brain showed acute left middle cerebral artery stroke, 6mm anterior communicating artery aneurysm. 07/18/2021 Aspirin 81mg daily thru 07/25/2021, then stop. Start Eliquis 5mg twice daily 07/26/2021. 07/18/2021 Admit to [facility] with debility, here for greater than 3 hours daily of rehabilitation, strengthening, prior to discharge home with . REPLACED BY [facility] Medical History Atrial fibrillation BPH (benign prostatic hypertrophy) Central cord syndrome Cervical spinal stenosis Degenerative joint disease (DJD) of lumbar spine Depression Essential hypertension Family history of hypertension History of DVT (deep vein thrombosis) History of spinal cord injury Neurogenic bladder Premature ventricular contractions Sick sinus syndrome Spinal cord injury Home Medications lisinopril 20 mg PO DAILY 06/24/15 [History Last Taken 03/28/19] ascorbic acid (vitamin C) 1,000 mg tablet 1,000 mg PO DAILY tab 02/14/18 [History Last Taken 03/28/19] vitamin E (dl, acetate) 180 mg (400 unit) capsule 400 unit PO DAILY 02/14/18 [History Last Taken 03/28/19] cholecalciferol (vitamin D3) 400 unit PO DAILY 03/29/19 [History Last Taken 03/28/19] citalopram 20 mg PO QHS 03/29/19 [History Last Taken 03/28/19] calcium and magnesium carbonates oral suspension 30 ml PO DAILY PRN 09/25/20 [History Last Taken Unknown] gabapentin 600 mg tablet See Rx Instructions PO BID 09/25/20 [History Last Taken Unknown] aspirin 81 mg PO DAILY 07/18/21 [History Last Taken Unknown] atorvastatin 40 mg PO QHS 07/18/21 [History Last Taken Unknown] baclofen 10 mg PO QHS 07/18/21 [History Last Taken Unknown] carvedilol 12.5 mg PO Q12H 07/18/21 [History Last Taken Unknown] citalopram [Celexa] 40 mg PO QHS 07/18/21 [History Last Taken Unknown] ferrous sulfate 324 mg PO TID 07/18/21 [History Last Taken Unknown] finasteride [Proscar] 5 mg PO DAILY 07/18/21 [History Last Taken Unknown] food supplemt, lactose-reduced [Ensure Enlive] 120 ml PO 4X/DAY 07/18/21 [History Last Taken Unknown] gabapentin 200 mg PO TID 07/18/21 [History Last Taken Unknown] melatonin 3 mg PO QHS 07/18/21 [History Last Taken Unknown] methenamine hippurate 1 g PO DAILY 07/18/21 [History Last Taken Unknown] nifedipine 30 mg PO DAILY 07/18/21 [History Last Taken Unknown] nystatin 1 applic TOPICAL TID 07/18/21 [History Last Taken Unknown] sennosides 17.2 mg PO DAILY 07/18/21 [History Last Taken Unknown] tamsulosin 0.4 mg PO QHS 07/18/21 [History Last Taken Unknown] Allergy/AdvReac Type Severity Reaction Status Date / Time ciprofloxacin [From Cipro] Allergy Hives Verified 07/12/21 09:25 sulfamethoxazole Allergy PT UNSURE Verified 07/12/21 09:25 [From Bactrim] OF REACTION trimethoprim [From Bactrim] Allergy PT UNSURE Verified 07/12/21 09:25 OF REACTION Family History Mother Breast cancer Cancer Brain cancer Sister Diabetes Hypertension CHF (congestive heart failure) Kidney disease Sister CHF (congestive heart failure) Cardiac defibrillator in situ Other Family history of hypertension Surgical History History of neck surgery History of permanent cardiac pacemaker placement S/P cervical spinal fusion Social History (Updated 07/18/21 @ 15:[address] Luis Carlos Gallardo MD) household members: spouse Smoking Status: Never smoker alcohol intake: current alcohol intake frequency: holidays/special occasions only Alcohol type: wine substance use type: does not use caffeine: Yes Type: coffee Number of servings: 1 what type of physical activity do you participate in: other details: Health point frequency: 1-2 times per week duration: 45-60 minutes/day seatbelt use: always do you feel safe at home: Yes ROS Constitutional Constitutional: Denies chills, fever(s) or weight gain ENT HEENT: Denies headache(s), nasal congestion or nasal discharge Cardiovascular Cardiovascular: Denies chest pain or palpitations Respiratory/Chest Respiratory/Chest: Denies cough, excessive phlegm production or shortness of breath with exertion Gastrointestinal Gastrointestinal: Denies abdominal pain, nausea or vomiting Genitourinary Genitourinary: Denies dysuria Musculoskeletal Musculoskeletal: Denies joint pain or joint swelling Integumentary Integumentary: Denies rash or wounds Neurologic Neurologic: Denies focal weakness, numbness or tingling Psychiatric Psychiatric: Denies anxiety, auditory hallucinations, depression, homicidal ideation or suicidal ideation Vital Signs Vital Signs Vital Signs: 07/18/21 12:44 07/18/21 15:20 Temperature 97.7 F L Temperature Source Temporal Pulse Rate 77 90 Respiratory Rate 18 Blood Pressure 139/92 H 142/87 H Blood Pressure Mean 107 105 Blood Pressure Source Monitor Monitor Blood Pressure Position Semi-Fowlers Semi-Fowlers Blood Pressure Location Right Arm Right Arm Pulse Ox 96 Oxygen Delivery Method Room Air Physical Exam Const alert General Appearance: cooperative HEENT normocephalic Eyes PERRL and EOMs intact bilaterally Neck supple, no JVD and no carotid bruits Resp normal respiratory effort, normal air movement and clear to auscultation bilaterally Cardio regular rate and regular rhythm GI normal to inspection, nondistended, normoactive bowel sounds, non-tender and non -distended Extremity normal capillary refill General Extremity: Negative for edema Skin no rashes or lesions noted General Skin Exam: no breakdown Neuro Neuro Narrative: Right hemiparesis, right lower worse than right upper. 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 * Debility - PT/OT. * Dysarthria - ST. * Pain - Tylenol 1000mg q6h prn pain (1-10). * Bowel - Senokot 2 tablets daily, MOM 30ml po x 1 pn, Dulcolax 10mg daily prn. * DVT prophylaxis - recent tPA, will be on Eliquis. * Stroke - Aspirin 81mg daily thru 07/26/2021, then Eliquis 5mg bid. * Hyperlipidemia - Atorvastatin 40mg qhs. * Muscle spasm - Baclofen 10mg qhs. * Atrial fibrillation - Carvedilol 12.5mg q12, Nifedipine 30mg daily, Eliquis 5mg bid starting 07/27/2021. * Depression - Citalopram 40mg daily. * Nutrition - Ensure Enlive 120ml po 4x/day. * Iron deficiency anemia - Ferrous sulfate 325mg po tid. * BPH - Finasteride 5mg daily, Tamsulosin 0.4mg daily. * Neuropathy - Gabapentin 200mg po tid. * GI prophylaxis - Lactobacillus 1 tablet daily. * Hypertension - Carvedilol 12.5mg q12, Nifedipine 30mg daily, Lisinopril 20mg daily. * Insomnia - Melatonin 3mg qhs. * Skin irritation - Calmoseptine topical bid. * Recurrent urinary tract infection - Methenamine 1gm daily. * Tinea Corporis - Nystatin powder topical tid. * Neurogic bowel - Soap suds enema daily. Unit Exclusion This patient is an acute care inpatient being housed in the excluded unit because of capacity issues related to the disaster or emergency.: Yes
[2021-07-18 16:38] VITALS: O2SAT 94
[2021-07-18 16:41] VITALS: RESP 16; O2SAT 94
[2021-07-18] MEDS: Ferrous Sulfate 325 MG Tablet PO (18:50)
[2021-07-18 20:32] VITALS: BP 117/68; PULSE 90; RESP 20; TEMP 36.9; O2SAT 95
[2021-07-18] MEDS: Carvedilol 12.5 MG Tablet PO (22:50)
[2021-07-18] MEDS: MELATONIN 3 MG TABLET PO (22:50)
[2021-07-18] MEDS: Citalopram 40 MG TABLET PO (22:50)
[2021-07-18] MEDS: Baclofen 10 MG Tablet PO (22:50)
[2021-07-18] MEDS: Tamsulosin HCl 0.4 MG Capsule PO (22:50)
[2021-07-18] MEDS: Atorvastatin Calcium 40 MG Tablet PO (22:50)
[2021-07-19] MEDS: Menthol/Lanolin/Calamine/Znox 113 GM Tube 1 APPLIC TOPICAL ×3 (00:09→20:31)
[2021-07-19 07:30] VITALS: BP 130/75; PULSE 54; RESP 16; TEMP 36.8; O2SAT 95
[2021-07-19 07:47] LABS: Hematocrit 40.7 % (40-54); Hemoglobin 13.8 g/dL (13.0-16.5); Mean Corp Hgb Conc 33.9 g/dL (32-36); Mean Corpuscular Hgb 30.1 pg (27.0-32.0); Mean Corpuscular Volume 88.7 fL (80-94); Mean Platelet Vol. 10.4 fl (6.2-12.0); Platelet Count 180 K/mm3 (150-450); RBC Distribution Width CV 14.2 % (11.6-14.6); RBC Distribution Width SD 44.9 fl (35.1-43.9); Red Blood Count 4.59 M/mm3 (4.6-6.2); White Blood Count 10.2 K/mm3 (4.4-11.0)
[2021-07-19] MEDS: Nystatin Powder 15gm Bottle 1 APPLIC TOPICAL ×3 (07:54→20:36)
[2021-07-19] MEDS: Gabapentin 100 MG Capsule 200 MG PO ×3 (07:55→20:40)
[2021-07-19] MEDS: Aspirin 81 MG TAB.CHEW PO (07:55)
[2021-07-19] MEDS: Ferrous Sulfate 325 MG Tablet PO ×3 (07:56→17:16)
[2021-07-19] MEDS: Senna Tablet 2 TABLET PO (07:58)
[2021-07-19] MEDS: Methenamine Hippurate 1 GM Tablet PO (07:58)
[2021-07-19] MEDS: NIFEdipine 30 MG Tablet PO (07:59)
[2021-07-19] MEDS: Finasteride 5 MG Tablet PO (08:00)
[2021-07-19] MEDS: Lisinopril 20 MG Tablet PO (08:00)
[2021-07-19 08:04] LABS: Anion Gap 8 (5-15); BUN 26 mg/dL (7-18); BUN/Creat Ratio 23.9 RATIO (10-20); Calcium,Total 8.6 mg/dL (8.5-10.1); Chloride 111 mmol/L (98-107); Creatinine, Serum 1.09 mg/dL (0.70-1.30); EST Glomerular Filtration Rate 70 mL/min (>60); Est Glom Filt Rate - Afr Amer 85 mL/min (>60); Estimated Creatinine Clearance 58.56 ml/min; Glucose 103 mg/dL (74-106); Sodium Level 142 mmol/L (136-145)
[2021-07-19] MEDS: Carvedilol 12.5 MG Tablet PO ×2 (11:56→20:35)
[2021-07-19] MEDS: Potassium Chloride Oral Tablet 20 MEQ 40 MEQ PO (12:31)
[2021-07-19 15:17] VITALS: BMI 31.3
--- NOTE | 2021-07-19 15:34 | PCM.RU.PYE ---
Admission Information Primary Diagnosis:: Left mca stroke. Status Changes from Prescreening?: No changes Identified Actual Problem List:: Falls, Cognitve Impr/Memory Loss, Mobility Impaired, Self Care Deficit, Ineffective Communication and Alteration-Leisure Activ. Potential Problem List:: DVT, Bleeding, Infection, UTI, Aspiration, Falls, Skin Integrity and Depression Risk of Complications DVT: GABRIELE [place] Bleeding: Monitor Lab Values and Stroke patients assessed for lethargy or change in status. Infection: Clinical Staff to Monitor for S/S of infection: and S/S of infection include fever, redness, warmth, etc. Urinary Tract Infection: Monitor for frequency, burning, discomfort, or incontinence. and Nursing will obtain urine sample for urinalysis and C&S when ordered. Aspiration: Clinical staff will monitor for coughing, drooling, congestion., Speech will evaluate swallowing and dsyphasia. and Nursing will monitor patient swallowing during meals. Falls: Patient will be evaluated for Fall Precautions and Patient will be placed on Fall Precautions as indicated per protocol. Skin Breakdown: Nursing will assess skin daily using assessment tool. and Nursing will place on Skin Breakdown Precautions as indicated. Pain: Clinical staff will assess patient's pain level per protocol., Medications will be given, if needed, and the pain level reassessed. and Other methods: Massage, distraction, decrease stimulus, etc. used PRN. Plan of Care Patient requires physician specializing in physical medicine and rehab oversight to provide close medical supervision of rehab issues including: Pain Management, Sleep Problems, Bowel and Bladder, Medical and co-morbidity Management, DVT prophylaxis, Rehabilitation Leadership and Coordination of treatment team Patient needs Physical Therapy: For a minimum of 1 hour Patient needs Physical Therapy to improve:: Mobility, Strengthening, Transfers, Stretching, ROM, Endurance, Stairs, Gait and Balance Patient needs Occupational Therapy: For a minimum of 1 hour Patient needs Occupational Therapy to improve ADL's incl.: Eating, Grooming, Bathing, Dressing, Toileting, Toilet transfers, Community Reintegration, Higher functioning activities, Household tasks and Adaptive Equipment Patient requires speech therapy: For a minimum of 1 hour Patient requires speech therapy for: Swallowing, Cognition, Language Skills and Compensatory Strategies Patient requires 24/7 Rehabilitation Nursing for: Pain Issues, Identifying and preventing risk factors, Monitoring and reporting current medical conditions, Assisting with ambulation, transfer, and all ADL's, Teaching patients about disease process and medications, Family teaching, Providing safe environment, Bowel and Bladder Issues, Skin integrity and Medication Management Patient needs Glass Toughening Operator/ Case Management for: Discharge Planning, Arranging Home Equipment or Services and Family Interventions Patient needs Dietary and Nutrition Services for: Adequate Nutrition, Nutritional Supplements and Nutritional Education Goals Patient will remain: free from falls Patient will perform bed mobility at: MOD I level of assist. Patient will complete transfers from bed to chair at: Standby Assist. Patient will ambulate: with standby assist, with LRD and - (25 feet) Patient will complete upper body dressing at: MOD I level of assist. Patient will complete lower body dressing at: MOD I level of assist. Patient will complete toileting at: MOD I level of assist. Patient will perform bathing at: MOD I level of assist. Patient will complete grooming at: MOD I level of assist. Patient will complete home management skills at: MOD I level of assist. Patient will achieve: at MOD I assist and - (1 step) Patient will have pain level of: of 3 or less Patient's skin will: remain intact and free from infection. Patient will receive: adequate nutrition. Discharge Planning Pt Prognosis for Sig. Practical Improv. w/in Reasonable Time: Good Estimated Length of stay (days): 20 Anticipated D/C Destination: Home with Home Health Was Preadmission Assessment Accurate?: Yes
[2021-07-19 20:01] VITALS: BP 128/82; PULSE 83; RESP 16; TEMP 36.4; O2SAT 98
[2021-07-19 20:05] VITALS: BMI 31.3
[2021-07-19] MEDS: Baclofen 10 MG Tablet PO (20:35)
[2021-07-19] MEDS: Tamsulosin HCl 0.4 MG Capsule PO (20:35)
[2021-07-19] MEDS: Citalopram 40 MG TABLET PO (20:35)
[2021-07-19] MEDS: MELATONIN 3 MG TABLET PO (20:36)
[2021-07-19] MEDS: Atorvastatin Calcium 40 MG Tablet PO (20:36)
[2021-07-19 22:00] VITALS: RESP 16; O2SAT 93
[2021-07-20] MEDS: Gabapentin 100 MG Capsule 200 MG PO ×3 (05:04→19:58)
[2021-07-20] MEDS: Nystatin Powder 15gm Bottle 1 APPLIC TOPICAL ×3 (05:05→19:55)
[2021-07-20 07:28] VITALS: BP 126/88; PULSE 87; RESP 16; TEMP 36.4; O2SAT 97
[2021-07-20] MEDS: Aspirin 81 MG TAB.CHEW PO (08:20)
[2021-07-20] MEDS: Ferrous Sulfate 325 MG Tablet PO ×3 (08:21→18:25)
[2021-07-20] MEDS: Finasteride 5 MG Tablet PO (08:21)
[2021-07-20] MEDS: Carvedilol 12.5 MG Tablet PO ×2 (08:21→19:54)
[2021-07-20] MEDS: NIFEdipine 30 MG Tablet PO (08:21)
[2021-07-20] MEDS: Lisinopril 20 MG Tablet PO (08:21)
[2021-07-20] MEDS: Methenamine Hippurate 1 GM Tablet PO (08:21)
[2021-07-20] MEDS: Potassium Chloride Oral Tablet 20 MEQ PO (08:22)
[2021-07-20] MEDS: Menthol/Lanolin/Calamine/Znox 113 GM Tube 1 APPLIC TOPICAL ×2 (08:24→19:53)
[2021-07-20 08:30] VITALS: O2SAT 97
[2021-07-20 13:05] VITALS: BMI 31.3
[2021-07-20 19:09] VITALS: BP 146/78; PULSE 70; RESP 17; TEMP 36.6; O2SAT 98
[2021-07-20] MEDS: Tamsulosin HCl 0.4 MG Capsule PO (19:54)
[2021-07-20] MEDS: MELATONIN 3 MG TABLET PO (19:54)
[2021-07-20] MEDS: Atorvastatin Calcium 40 MG Tablet PO (19:54)
[2021-07-20] MEDS: Citalopram 40 MG TABLET PO (19:55)
[2021-07-20] MEDS: Baclofen 10 MG Tablet PO (19:56)
[2021-07-20 20:26] VITALS: BMI 31.3
--- NOTE | 2021-07-20 21:23 | NURSING ---
Soap suds enema given with positive results.
--- NOTE | 2021-07-21 04:32 | NURSING ---
REVIEWED AND AGREE WITH PATIENT REPRESENTATIVE DOCUMENTATION AND ASSESSMENT CHECKING.
[2021-07-21] MEDS: Gabapentin 100 MG Capsule 200 MG PO ×3 (04:42→22:16)
[2021-07-21] MEDS: Nystatin Powder 15gm Bottle 1 APPLIC TOPICAL ×3 (04:44→22:13)
[2021-07-21 06:30] LABS: Anion Gap 7 (5-15); BUN 25 mg/dL (7-18); BUN/Creat Ratio 23.8 RATIO (10-20); Calcium,Total 8.5 mg/dL (8.5-10.1); Chloride 111 mmol/L (98-107); Creatinine, Serum 1.05 mg/dL (0.70-1.30); EST Glomerular Filtration Rate 73 mL/min (>60); Est Glom Filt Rate - Afr Amer 89 mL/min (>60); Estimated Creatinine Clearance 60.79 ml/min; Glucose 101 mg/dL (74-106); Potassium 3.1 mmol/L (3.5-5.1); Sodium Level 141 mmol/L (136-145)
[2021-07-21 07:44] VITALS: BP 130/72; PULSE 72; RESP 16; TEMP 36.5; O2SAT 95
[2021-07-21] MEDS: Ferrous Sulfate 325 MG Tablet PO ×3 (08:14→16:58)
[2021-07-21] MEDS: Aspirin 81 MG TAB.CHEW PO (08:14)
[2021-07-21] MEDS: Potassium Chloride Oral Tablet 20 MEQ PO (08:14)
[2021-07-21] MEDS: Menthol/Lanolin/Calamine/Znox 113 GM Tube 1 APPLIC TOPICAL ×2 (08:15→22:12)
[2021-07-21] MEDS: NIFEdipine 30 MG Tablet PO (08:15)
[2021-07-21] MEDS: Methenamine Hippurate 1 GM Tablet PO (08:15)
[2021-07-21] MEDS: Carvedilol 12.5 MG Tablet PO ×2 (08:15→22:12)
[2021-07-21] MEDS: Senna Tablet 2 TABLET PO (08:16)
[2021-07-21] MEDS: Finasteride 5 MG Tablet PO (08:16)
[2021-07-21] MEDS: Lisinopril 20 MG Tablet PO (08:16)
[2021-07-21 16:28] VITALS: BMI 31.3
[2021-07-21 19:30] VITALS: BP 107/66; PULSE 56; RESP 18; TEMP 36.6; O2SAT 18; O2SAT 97; BMI 31.3
[2021-07-21] MEDS: MELATONIN 3 MG TABLET PO (22:12)
[2021-07-21] MEDS: Citalopram 40 MG TABLET PO (22:12)
[2021-07-21] MEDS: Baclofen 10 MG Tablet PO (22:12)
[2021-07-21] MEDS: Atorvastatin Calcium 40 MG Tablet PO (22:12)
[2021-07-21] MEDS: Tamsulosin HCl 0.4 MG Capsule PO (22:12)
[2021-07-21] MEDS: Acetaminophen 500 MG Tablet 1000 MG PO (22:39)
--- NOTE | 2021-07-22 03:33 | NURSING ---
Reviewed and agree with BIOCHEMICAL DEVELOPMENT ENGINEER documentation and assessment charting.
[2021-07-22] MEDS: Nystatin Powder 15gm Bottle 1 APPLIC TOPICAL (06:29)
[2021-07-22] MEDS: Gabapentin 100 MG Capsule 200 MG PO (06:29)
[2021-07-22 07:38] VITALS: BP 135/59; PULSE 54; RESP 16; TEMP 36.2; O2SAT 94
[2021-07-22] MEDS: Methenamine Hippurate 1 GM Tablet PO (09:04)
[2021-07-22] MEDS: Carvedilol 12.5 MG Tablet PO (09:04)
[2021-07-22] MEDS: NIFEdipine 30 MG Tablet PO (09:04)
[2021-07-22] MEDS: Finasteride 5 MG Tablet PO (09:04)
[2021-07-22] MEDS: Lisinopril 20 MG Tablet PO (09:04)
[2021-07-22] MEDS: Aspirin 81 MG TAB.CHEW PO (09:05)
[2021-07-22] MEDS: Ferrous Sulfate 325 MG Tablet PO (09:05)
[2021-07-22] MEDS: Potassium Chloride Oral Tablet 20 MEQ PO (09:05)
[2021-07-22] MEDS: Menthol/Lanolin/Calamine/Znox 113 GM Tube 1 APPLIC TOPICAL (09:05)
--- NOTE | 2021-07-22 10:03 | CT_ITS ---
STUDY: CT BRAIN WITHOUT CONTRAST REASON FOR EXAM: Male, 76 years old. Altered mental status -- recent embolic CVA RADIATION DOSAGE (If Supplied By Facility): CTDIvol = ( 44.99 ) mGy, DLP = ( 863.60 ) mGycm TECHNIQUE: Transaxial CT imaging of the brain was performed without administration of intravenous contrast material. Individualized dose optimization techniques were used for this CT. COMPARISON: No relevant priors. FINDINGS: Normal soft tissue structures. Normal calvarium. There is evidence of the edema and decreased accomplished the markings in the territory of the left posterior cerebral artery with a mild degree of mass effect. There is mild cerebral atrophy with widening of the extra-axial spaces and ventricular dilatation. There are areas of decreased attenuation within the white matter tracts of the supratentorial brain, consistent with microvascular disease changes. Normal basal ganglia and thalami. Normal brainstem. Normal cerebellum. There is no intracranial hemorrhage. There are no findings of an acute ischemic infarction. Normal visualized paranasal sinuses. CT/Brain/Head without Contrast IMPRESSION: Findings in keeping with acute CVA involving the territory of the left posterior cerebral artery. N.B. : The above Results were Read Back by Umang Guerra MD to Devora Noland and understanding confirmed on 07/22/2021 10:52:55 (ET). Electronically Signed: Umang Guerra MD at 10:54 EDT ,
--- NOTE | 2021-07-22 10:07 | PCM.PROGNOTE ---
Subjective Subjective Afebrile since admission. VSS-heart rate is ranged from 54-87 for the past 2 days. Blood pressures have ranged from 117/68-140 2/87 since admission. Maintaining appropriate oxygen saturation on RA Oral intake on 07/20/2021 was 1060. Oral intake on 07/21 was 2310. Decreased urine OP overnight and this AM. Discussed with nursing - Pt has altered mental status this AM. He could not be aroused and he was transferred from the bed to the chair with a Bethany lift. He now has his eyes open but can not follow commands. Unable to talk. Has a frontal release sign with + grasp BL. No tonic clonic activity observed. Reviewed the PT/OT/ST notes Medication list reviewed. All lab was personally reviewed. Potassium was low at 3.1 today and the sodium was 141. Serum bicarb is normal. BUN is 25 which is stable and the creatinine is stable at 1.05. Last know well is unknown. He ate minimal breakfast today and the nurse fed him. Yesterday he was feeding himself. He pointed at water when he wanted it. He is non-verbal. Markedly different today than yesterday per PT. His eyes are open at the time of my exam and he is non-verbal and obtunded. He is leaning heavily to the left and is not moving the his left arm. He has a very weak hand grasp on the left. He has some tone in the R arm and he grasps my hand and will not let go. Mot moving either leg and if I left the leg it drops immediately to the bed. He was able to do the Nu-step yesterday moving all extremities for 14 min. Slight left facial droop when I can get him to smile. PERRL He will not track my finger horizontally. Eyes are open and on the third time I examined him today he looked at me when I called his name. MM are Dry. H - irregular with controlled VR. Lungs - diminished, CTA, not tachypneic. No accessory muscle use. No labored breathing. He has seborrheic dermatitis on his face in the jones, nasolabial folds and around his nose. No significant ankle edema. Impressions 1. Probable new R MCA stroke. Stat NC CTB. Start IV NS and give 1 liter over 1 hour. Not a candidate for TPA. He had TPA on 07/12/21 for L MCA embolic CVA. 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 AF 4. HTN 5. Hx of recent LCA CVA on 07/12/21 6. hx of Paraplegia due to C6 fracture - long standing.......able to ambulate with AD prior to this stroke but legs were weak. NC CTB showed findings in keeping with acute CVA involving the territory of the left posterior cerebral artery. CTA shows not hemorrhage and there is no change since CTA done on 07/12/21. No LVO's. Normal R M1 and M2 and the R carotid has less than 50% stenosis. D/W the neurologist at [facility] and they will accept him for transfer Level 2 transfer. His was notified by rehab nursing about the acute altered mental status and I called and talked to her and verified the new strokes and the plan to transfer to [facility]. she is on her way to the hospital. Objective Data Objective Data Vital Signs: Vital Signs Temp Pulse Resp BP Pulse Ox 97.1 F L 54 L 16 135/59 H 94 07/22/21 07:38 07/22/21 07:38 07/22/21 07:38 07/22/21 07:38 07/22/21 07:38 Oxygen Delivery Method Room Air Weight: 239 lb 6.752 oz Body Mass Index (BMI) 31.3 Intake & Output: Intake and Output for Last 24 Hours 07/20/21 07/21/21 07/22/21 23:59 23:59 23:59 Intake Total 1060 / 1060 2310 / 2310 240 / 240 Output Total 1160 / 1160 650 / 650 175 / 175 Balance -100 / -100 1660 / 1660 65 / 65 Lab / Micro Data Result Diagrams: 07/19/21 07:35 07/21/21 05:43
[2021-07-22] MEDS: Ketoconazole Cream 1 APPLIC TOPICAL (10:38)
--- NOTE | 2021-07-22 10:45 | NURSING ---
Addendum entered by Melissa Chauhan 07/22/21 10:57: BP 148/67, HR 60, SPO2 96% Original Note: Speech therapists altered nursing that she was unable to arouse pt. Pt noted to have altered mental status. Pt not following commands and unable to talk. Dr Lozoya made aware. CT ordered.
--- NOTE | 2021-07-22 10:48 | CT_ITS ---
STUDY: CTA HEAD AND NECK WITH CONTRAST REASON FOR EXAM: Male, 76 years old. CVA RADIATION DOSAGE (If Supplied By Facility): CTDIvol = ( 32.13 ) mGy, DLP = ( 739.02 ) mGycm TECHNIQUE: CT angiography was performed with a multi-detector CT scanner. Data acquisition was obtained from the skull base through the vertex following intravenous administration of IV 100mL [id number]-[id number]. MIP images were reconstructed from the axial data set. Post-processing of the angiographic images was performed, with multiplanar reformation and 3D reconstruction. Individualized dose optimization techniques were used for this CT. COMPARISON: Comparison is made with prior examination 07/12/2021. FINDINGS: Normal bilateral petrous carotid arteries. There is calcified plaque formation of the right cavernous carotid artery, without a cross-sectional luminal stenosis. There is calcified plaque formation of the left cavernous carotid artery, without a cross-sectional luminal stenosis. Normal right A1 segments of the anterior cerebral artery. Normal left A1 segments of the anterior cerebral artery. Normal intact anterior communicating artery (ACOM). Once again, there is a 6 mm saccular aneurysm of the medial wall of the proximal A2 segment of the right anterior cerebral artery. Normal right M1 and M2 segments of the middle cerebral arteries, with a normal M1 bifurcation. There is irregularity of the left M1 and M2 branches with minimal luminal narrowing, suggesting atherosclerotic plaque formation, without an occlusion. Normal right posterior communicating artery (PCOM). Normal left posterior communicating artery (PCOM). Normal bilateral vertebral arteries. Normal basilar artery with a normal basilar bifurcation. The visualized bilateral superior cerebellar (SCA) arteries are normal. Normal bilateral P1, P2 and visualized P3 segments of the posterior cerebral arteries. There is no demonstrated aneurysm of the [place]. Stable sinusitis. AORTIC ARCH: There is atherosclerotic calcific plaque formation of the aortic arch and great vessels arising from the aortic arch, without a hemodynamically significant stenosis. There is a normal origin of the brachiocephalic, left common carotid, and left subclavian arteries. Atherosclerotic plaque formation of the origin of the left subclavian artery. RIGHT CAROTID ARTERIES: Normal right common carotid artery (CCA). Normal right common carotid bulb. There is mild atherosclerotic plaque formation of the origin of the right internal carotid artery with less than 50% cross sectional diameter stenosis. Normal visualized cervical portion of the right internal carotid artery. Normal origin of the right external carotid artery (ECA). LEFT CAROTID ARTERIES: Normal left common carotid artery (CCA). Normal left common carotid bulb. There is moderate atherosclerotic plaque formation of the origin of the left internal carotid artery with an estimated stenosis of 50-69% stenosis. Normal visualized cervical portion of the left internal carotid artery. Normal origin of the left external carotid artery (ECA). VERTEBRAL ARTERIES: Normal bilateral vertebral arteries. CT/CTA Head AND Neck W/ Contrast IMPRESSION: Stable examination. N.B. : The above Results were Read Back by Umang Guerra MD to Devora Noland and understanding confirmed on 07/22/2021 11:15:23 (ET). Electronically Signed: Umang Guerra MD at 11:16 EDT ,
[2021-07-22] MEDS: 0.9% Normal Saline 1,000 ML 999 ML IV (11:01)
[2021-07-22 11:15] VITALS: BP 176/83; PULSE 78; RESP 20
--- NOTE | 2021-07-22 11:39 | EX.DISCHREH ---
Providers Date of Admission: 07/18/21 Primary Care Physician: Dr. Tunde Beard DO Reason For Visit: LEFT MCA Diagnosis Discharge Diagnosis (1) Cerebrovascular accident (CVA) due to embolic occlusion of right middle cerebral artery: Status: Suspected Code(s): I63.411 - Cerebral infarction due to embolism of right middle cerebral artery (2) Left hemiparesis: Status: Acute Code(s): G81.94 - Hemiplegia, unspecified affecting left nondominant side (3) Hypokalemia: Status: Acute Code(s): E87.6 - Hypokalemia (4) Aphasia: Status: Acute Code(s): R47.01 - Aphasia (5) Cerebrovascular accident (CVA) due to embolic occlusion of middle cerebral artery: Status: Acute Code(s): I63.419 - Cerebral infarction due to embolism of unspecified middle cerebral artery (6) Debility: Status: Acute Code(s): R53.81 - Other malaise (7) Dysarthria: Status: Acute Code(s): R47.1 - Dysarthria and anarthria (8) Anterior communicating artery aneurysm: Status: Acute Code(s): I67.1 - Cerebral aneurysm, nonruptured (9) Atrial fibrillation: Status: Acute Code(s): I48.91 - Unspecified atrial fibrillation (10) Hypertension: Status: Chronic Code(s): I10 - Essential (primary) hypertension (11) Depression: Status: Acute Code(s): F32.A - Depression, unspecified (12) 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: Status: Chronic Code(s): G82.54 - Quadriplegia, C5-C7 incomplete (13) Neuropathy: Status: Chronic Code(s): G62.9 - Polyneuropathy, unspecified (14) Sick sinus syndrome: Status: Chronic Code(s): I49.5 - Sick sinus syndrome (15) Neurogenic bladder: Status: Chronic Code(s): N31.9 - Neuromuscular dysfunction of bladder, unspecified (16) Neurogenic bowel: Status: Chronic Code(s): K59.2 - Neurogenic bowel, not elsewhere classified (17) Atrial fibrillation: Status: Acute Code(s): I48.91 - Unspecified atrial fibrillation (18) Essential hypertension: Status: Chronic Code(s): I10 - Essential (primary) hypertension (19) AAA (abdominal aortic aneurysm) without rupture: Status: Chronic Code(s): I71.4 - Abdominal aortic aneurysm, without rupture (20) History of permanent cardiac pacemaker placement: Status: Chronic Code(s): Z95.0 - Presence of cardiac pacemaker (21) Paraplegia: Status: Chronic Code(s): G82.20 - Paraplegia, unspecified (22) Anemia: Status: Chronic Code(s): D64.9 - Anemia, unspecified (23) Central cord syndrome: Status: Chronic Code(s): S14.129A - Central cord syndrome at unspecified level of cervical spinal cord, initial encounter (24) 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.9): Status: Chronic Code(s): E66.9 - Obesity, unspecified Plan: Pt will be admitted to the ICU and transferred to [facility] for acute L ischemic CVA and suspected acute R cerebral ischemic CVA when the Mobile ICU arrives. she is being transferred level 2 since the CTA of the brain and neck shows no LVO. Medications at Discharge Home Medications lisinopril 20 mg PO DAILY 06/24/15 ascorbic acid (vitamin C) 1,000 mg tablet 1,000 mg PO DAILY tab 02/14/18 vitamin E (dl, acetate) 180 mg (400 unit) capsule 400 unit PO DAILY 02/14/18 cholecalciferol (vitamin D3) 400 unit PO DAILY 03/29/19 citalopram 20 mg PO QHS 03/29/19 calcium and magnesium carbonates oral suspension 30 ml PO DAILY PRN 09/25/20 gabapentin 600 mg tablet See Rx Instructions PO BID 09/25/20 aspirin 81 mg PO DAILY 07/18/21 atorvastatin 40 mg PO QHS 07/18/21 baclofen 10 mg PO QHS 07/18/21 carvedilol 12.5 mg PO Q12H 07/18/21 citalopram [Celexa] 40 mg PO QHS 07/18/21 ferrous sulfate 324 mg PO TID 07/18/21 finasteride [Proscar] 5 mg PO DAILY 07/18/21 food supplemt, lactose-reduced [Ensure Enlive] 120 ml PO 4X/DAY 07/18/21 gabapentin 200 mg PO TID 05/06/22 melatonin 3 mg PO QHS 07/18/21 methenamine hippurate 1 g PO DAILY 07/18/21 nifedipine 30 mg PO DAILY 07/18/21 nystatin 1 applic TOPICAL TID 07/18/21 sennosides 17.2 mg PO DAILY 07/18/21 tamsulosin 0.4 mg PO QHS 07/18/21 Hospital Course Operations None Procedures None Summary of Care Provided Minutes Spent on Discharge: 35 Hospital Course: Mr. Ignacio Barron is a 76-year-old man with a history of atrial fibrillation, sick sinus syndrome, permanent pacemaker implantation, incomplete paraplegia secondary to subluxation of C5/C6 in the remote past, right anterior communicating artery aneurysm and recent left embolic MCA CVA on 07/12/2021 for which he received tPA who was recently transferred from [facility] to the acute rehab unit at [facility] on 07/18/2021 for 3 hours of therapy daily to restore function/independence at or near his prior level. He was ambulatory with an assistive device prior to recent CVA. On the morning of 07/22/2021 he was lethargic and minimally responsive and this is an acute change from the preceding day. He was slumped heavily to the left and could not move the left arm or left leg. He also could not move the RLE. He had a mild left facial droop. He was aphasic and unable to follow commands. He was unable to feed himself and he had done this the preceding day. His LKW was unknown. He had also used the NuStep for 14 minutes using all 4 extremities on 07/21/2021. A stroke alert was called and he was taken to CT scan. Noncontrast CT brain showed a new area of acute infarct in the territory of the left posterior cerebral artery. There were no new findings on the right. CTA of the head and neck revealed no large vessel occlusion or hemorrhage. He was started on an IV of normal saline and given 1 L over 1 hour. He was given 20 MEQ potassium IV and he was made NPO. [facility] was contacted and [facility] for further evaluation as a level 2 transfer. He was admitted to the ICU to await transfer to [facility] by mobile intensive care unit. I spoke to his on the phone and explained that he is having additional strokes, likely embolic, and that the neurologist recommended transfer back to [facility] for further tx. She was in agreement and she did arrive at the hospital and was able to see him prior to transfer. All oral meds were placed on hold until he can be seen by ST and have his swallowing assessed. By the time transfer was to occur he was able to lift his Left arm but, he can still not follow commands. Vital signs at the time of transfer were blood pressure 176/83, pulse 56, respiratory rate 20 and he is 94% saturated on room air but supplemental oxygen was applied due to the stroke symptoms. Physical Exam Const Constitutional Narrative: Obtunded, lethargic, aphasic, unable to follow commands. Eyes PERRL, EOMs intact bilaterally, conjunctivae normal, no scleral icterus and normal visual hester by confrontation Neck No nuchal rigidity and no carotid bruits Resp normal respiratory effort, normal air movement, no use of accessory muscles and clear to auscultation bilaterally Resp Narrative: Not tachypneic and appears in no acute respiratory distress. Cardio regular rate and no gallops Cardio Narrative: Likely paced. GI normal to inspection, nondistended, normoactive bowel sounds and soft to palpation GI Narrative: No guarding with palpation. Extremity no pedal edema Neuro Neuro Narrative: Neuro Neuro Narrative: 1. LOC Alert: 2 2. LOC/Orientation: 2 3. LOC Commands: 2 4. Horizontal extraocular movements : 0 5. Visual hester: blinks to confrontation 6. Facial Paresis: 1 7. Dysarthria: 0 8. Best Language/aphasia: 3 9. Motor Left ARM : 2 10. Motor Left LE 11. Motor Right ARM: 0 12. Motor Right leg LE 13. Limb ataxia: 0 14. Sensory: 2 15. Neglect: [] NIHSS 22 MRS 5 Weight / BMI Weight Weight: 239 lb 6.752 oz Body Mass Index (BMI) 31.3 ABG / Lab / Microbiology Data Result Diagrams: 07/19/21 07:35 07/21/21 05:43 Radiography Diagnostic Testing: Radiology Impression Brain CT 07/22/21 10:03 IMPRESSION: Findings in keeping with acute CVA involving the territory of the left posterior cerebral artery. N.B. : The above Results were Read Back by Umang Guerra MD to [facility] and understanding confirmed on 07/22/2021 10:52:55 (ET). Electronically Signed: Umang Guerra MD at 10:54 EDT , ADDENDUM: 07/22/21 1100 IMPRESSION: Findings in keeping with acute CVA involving the territory of the left posterior cerebral artery. N.B. : The above Results were Read Back by Umang Guerra MD to Devora Noland and understanding confirmed on 07/22/2021 10:52:55 (ET). Electronically Signed: Umang Guerra MD at 10:54 EDT , Head/Neck CTA 07/22/21 10:48 IMPRESSION: Stable examination. N.B. : The above Results were Read Back by Umang Guerra MD to Devora Noland and understanding confirmed on 07/22/2021 11:15:23 (ET). Electronically Signed: Umang Guerra MD at 11:16 EDT , Indicators for Scoring Admitted with or Primary Diagnosis of CVA/Stroke: Yes Hx of CVA/Stroke: Yes Modified [place] Score MRS Score at time of Evaluation: 5-Severe disability Meaningful Use Info Meaningful Use Diagnoses (Choose all that apply): Ischemic CVA CVA Therapy Assessed for PT,OT and/or ST?: Yes Ischemic Stroke Antithrombotic order at d/c?: Yes Dx of Atrial fib/flutter?: Yes Anticoagulant at discharge?: No Reason anticoagulant not ordered: Treatment not Indicated (He had a large L MCA ischemic infarct and is at risk for hemorrhagic conversion. He is to start Eliquis on 07/24/2021.) Statins at discharge?: Yes Primary Dx Acute Ischemic CVA?: Yes IV tPA ordered during stay?: No Reason IV t-PA not ordered: Treatment not Indicated (He had tPA on 07/12/2021 and is not a candidate for another dose at this time.) Discharge Plan Admission Admit Date/Time: 07/18/21 11:57 Primary Reason for Your Visit: L MCA embolic CVA Attending Provider: Luis Carlos Gallardo Chi Primary Care Provider: Tunde Beard Discharge Orders/Prescriptions Prescriptions: Continued ascorbic acid (vitamin C) 1,000 mg tablet 1,000 mg PO DAILY RF: 0 vitamin E (dl, acetate) 400 unit capsule 400 unit PO DAILY RF: 0 gabapentin 600 mg tablet See Rx Instructions PO BID RF: 0 calcium and magnesium carbonat Suspension 30 ml PO DAILY PRN (Reason: (Drug) Ingestion) RF: 0 lisinopril 20 MG tablet 20 mg PO DAILY RF: 0 citalopram 20 MG tablet 20 mg PO QHS RF: 0 cholecalciferol (vitamin D3) 400 UNIT capsule 400 unit PO DAILY RF: 0 atorvastatin 40 mg Tablet 40 mg PO QHS RF: 0 carvedilol 12.5 mg Tablet 12.5 mg PO Q12H RF: 0 citalopram [Celexa] 40 mg Tablet 40 mg PO QHS RF: 0 melatonin 3 mg Tablet 3 mg PO QHS RF: 0 methenamine hippurate 1 gram Tablet 1 g PO DAILY RF: 0 tamsulosin 0.4 mg Capsule 0.4 mg PO QHS RF: 0 baclofen 10 mg Tablet 10 mg PO QHS RF: 0 aspirin 81 mg Tablet,Chewable 81 mg PO DAILY RF: 0 gabapentin 100 mg Capsule 200 mg PO TID RF: 0 nystatin 100,000 unit/gram Powder 1 applic TOPICAL TID RF: 0 finasteride [Proscar] 5 mg Tablet 5 mg PO DAILY RF: 0 Ensure Enlive Liquid 120 ml PO 4X/DAY RF: 0 sennosides 17.2 mg Tablet 17.2 mg PO DAILY RF: 0 ferrous sulfate 324 mg (65 mg iron) Tablet,Delayed Release (Dr/Ec) 324 mg PO TID RF: 0 nifedipine 30 mg tablet extended release 30 mg PO DAILY RF: 0 Referrals / Follow Up: Tunde Beard DO [Primary Care Provider] - Disposition Discharge Orders: Discharge Patient (Routine); Ordered 07/22/21 Ordered By: Dr. Nuzhat Lozoya Charges/Coding Visit Charges Inpatient E&M: 81942 Disch Hosp
--- NOTE | 2021-07-22 11:57 | PCM.DC ---
Discharge Instructions Diet Discharge Diet: - (NPO until seen by ST for swallowing eval.) Follow Up Care Please Follow Up With: Tunde Beard DO When: following discharge from hospital/rehab Test Results: Test results from this visit will be discussed in further detail at your follow-up appointment, if applicable. Pending Tests Upon Discharge: none Discharge Plan Admission Admit Date/Time: 07/18/21 11:57 Primary Reason for Your Visit: L MCA embolic CVA Attending Provider: Luis Carlos Gallardo Chi Primary Care Provider: Tunde Beard Discharge Orders/Prescriptions Prescriptions: Continued ascorbic acid (vitamin C) 1,000 mg tablet 1,000 mg PO DAILY RF: 0 vitamin E (dl, acetate) 400 unit capsule 400 unit PO DAILY RF: 0 gabapentin 600 mg tablet See Rx Instructions PO BID RF: 0 calcium and magnesium carbonat Suspension 30 ml PO DAILY PRN (Reason: (Drug) Ingestion) RF: 0 lisinopril 20 MG tablet 20 mg PO DAILY RF: 0 citalopram 20 MG tablet 20 mg PO QHS RF: 0 cholecalciferol (vitamin D3) 400 UNIT capsule 400 unit PO DAILY RF: 0 atorvastatin 40 mg Tablet 40 mg PO QHS RF: 0 carvedilol 12.5 mg Tablet 12.5 mg PO Q12H RF: 0 citalopram [Celexa] 40 mg Tablet 40 mg PO QHS RF: 0 melatonin 3 mg Tablet 3 mg PO QHS RF: 0 methenamine hippurate 1 gram Tablet 1 g PO DAILY RF: 0 tamsulosin 0.4 mg Capsule 0.4 mg PO QHS RF: 0 baclofen 10 mg Tablet 10 mg PO QHS RF: 0 aspirin 81 mg Tablet,Chewable 81 mg PO DAILY RF: 0 gabapentin 100 mg Capsule 200 mg PO TID RF: 0 nystatin 100,000 unit/gram Powder 1 applic TOPICAL TID RF: 0 finasteride [Proscar] 5 mg Tablet 5 mg PO DAILY RF: 0 Ensure Enlive Liquid 120 ml PO 4X/DAY RF: 0 sennosides 17.2 mg Tablet 17.2 mg PO DAILY RF: 0 ferrous sulfate 324 mg (65 mg iron) Tablet,Delayed Release (Dr/Ec) 324 mg PO TID RF: 0 nifedipine 30 mg tablet extended release 30 mg PO DAILY RF: 0 Referrals / Follow Up: Tunde Beard DO [Primary Care Provider] - Disposition Discharge Orders: Discharge Patient (Routine); Ordered 07/22/21 Ordered By: Dr. Nuzhat Lozoya
== END 2021-07-22 11:08 | disposition short-term general hospital (02) | DRG 56 ==
PROVIDERS: Admitting Provider Family Medicine Geriatric Medicine; PCP Preventive Medicine Occupational Medicine; Visit Provider Family Medicine Geriatric Medicine
DX: I69.351 Hemiplegia and hemiparesis following cerebral infarction affecting right dominant side (principal); G82.54 Quadriplegia, C5-C7 incomplete; K59.2 Neurogenic bowel, not elsewhere classified; B35.4 Tinea corporis; D50.9 Iron deficiency anemia, unspecified; G62.9 Polyneuropathy, unspecified; I48.91 Unspecified atrial fibrillation; E87.6 Hypokalemia; I10 Essential (primary) hypertension; L21.9 Seborrheic dermatitis, unspecified; I69.322 Dysarthria following cerebral infarction; I69.320 Aphasia following cerebral infarction; I69.392 Facial weakness following cerebral infarction; N40.0 Benign prostatic hyperplasia without lower urinary tract symptoms; E66.9 Obesity, unspecified; Z99.3 Dependence on wheelchair; Z95.0 Presence of cardiac pacemaker; F32.A Depression, unspecified; Z68.35 Body mass index [BMI] 35.0-35.9, adult; Z79.899 Other long term (current) drug therapy; Z79.82 Long term (current) use of aspirin; Z86.718 Personal history of other venous thrombosis and embolism
CPT/HCPCS: 36415; 70450; 70496; 70498; 80048; 85027; 92507; 92523; 97110; 97162; 97166; 97530; 97535; 97802; 99251; J7030; Q9967; A4216; G0463

== ENCOUNTER 2021-07-22 11:06 | Inpatient (IN) | payer MEDICARE, OTHER, SELFPAY ==
[2021-07-22 11:15] VITALS: BP 154/106; PULSE 65; RESP 19; TEMP 35.6; O2SAT 97
[2021-07-22 11:30] VITALS: BP 127/65; PULSE 59; RESP 14; O2SAT 97; BMI 35.3
[2021-07-22 11:36] VITALS: PULSE 56
[2021-07-22 12:00] VITALS: BP 120/66; PULSE 57; RESP 14; O2SAT 98
--- NOTE | 2021-07-22 12:07 | DS.PCM_ITS ---
Providers Date of Admission: 07/22/21 Primary Care Physician: Dr. Tunde Beard, Diagnosis Discharge Diagnosis (1) Debility: Status: Acute Code(s): R53.81 - Other malaise (2) Left hemiparesis: Status: Acute Code(s): G81.94 - Hemiplegia, unspecified affecting left nondominant side (3) Aphasia: Status: Acute Code(s): R47.01 - Aphasia (4) Cerebrovascular accident (CVA) due to embolic occlusion of right middle cerebral artery: Status: Suspected Code(s): I63.411 - Cerebral infarction due to embolism of right middle cerebral artery (5) Hypokalemia: Status: Acute Code(s): E87.6 - Hypokalemia (6) Cerebrovascular accident (CVA) due to embolic occlusion of middle cerebral artery: Status: Acute Code(s): I63.419 - Cerebral infarction due to embolism of unspecified middle cerebral artery (7) 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: Status: Chronic Code(s): G82.54 - Quadriplegia, C5-C7 incomplete (8) Neurogenic bowel: Status: Chronic Code(s): K59.2 - Neurogenic bowel, not elsewhere classified (9) Neurogenic bladder: Status: Chronic Code(s): N31.9 - Neuromuscular dysfunction of bladder, unspecified (10) Hypertension: Status: Chronic Code(s): I10 - Essential (primary) hypertension (11) Atrial fibrillation: Status: Acute Code(s): I48.91 - Unspecified atrial fibrillation (12) Anterior communicating artery aneurysm: Status: Acute Code(s): I67.1 - Cerebral aneurysm, nonruptured (13) Atrial fibrillation: Status: Acute Code(s): I48.91 - Unspecified atrial fibrillation (14) History of permanent cardiac pacemaker placement: Status: Chronic Code(s): Z95.0 - Presence of cardiac pacemaker (15) Paraplegia: Status: Chronic Code(s): G82.20 - Paraplegia, unspecified (16) 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.9): Status: Chronic Code(s): E66.9 - Obesity, unspecified Plan: Discharged to [facility] neurology by mobile ICU for suspected acute right MCA embolic infarct. Medications at Discharge Home Medications lisinopril 20 mg PO DAILY 06/24/15 ascorbic acid (vitamin C) 1,000 mg tablet 1,000 mg PO DAILY tab 02/14/18 vitamin E (dl, acetate) 180 mg (400 unit) capsule 400 unit PO DAILY 02/14/18 cholecalciferol (vitamin D3) 400 unit PO DAILY 03/29/19 citalopram 20 mg PO QHS 03/29/19 calcium and magnesium carbonates oral suspension 30 ml PO DAILY PRN 09/25/20 gabapentin 600 mg tablet See Rx Instructions PO BID 09/25/20 aspirin 81 mg PO DAILY 07/18/21 atorvastatin 40 mg PO QHS 07/18/21 baclofen 10 mg PO QHS 07/18/21 carvedilol 12.5 mg PO Q12H 07/18/21 citalopram [Celexa] 40 mg PO QHS 07/18/21 ferrous sulfate 324 mg PO TID 07/18/21 finasteride [Proscar] 5 mg PO DAILY 07/18/21 food supplemt, lactose-reduced [Ensure Enlive] 120 ml PO 4X/DAY 07/18/21 gabapentin 200 mg PO TID 07/18/21 melatonin 3 mg PO QHS 07/18/21 methenamine hippurate 1 g PO DAILY 07/18/21 nifedipine 30 mg PO DAILY 07/18/21 nystatin 1 applic TOPICAL TID 07/18/21 sennosides 17.2 mg PO DAILY 07/18/21 tamsulosin 0.4 mg PO QHS 07/18/21 Hospital Course Operations None Procedures None Summary of Care Provided Minutes Spent on Discharge: 50 Hospital Course: Mr. Ignacio Barron is a 76-year-old man with a history of atrial fibrillation, sinus syndrome, permanent pacemaker implantation, incomplete paraplegia secondary to subluxation of C5/C6 in the remote past, right anterior communicating artery aneurysm and recent left embolic MCA CVA on 07/12/2021 for which he received tPA who was recently transferred from [facility] to the acute rehab unit at [facility] on 07/18/2021 for 3 hours of therapy daily to restore function/independence at or near his prior level. Was ambulatory with an assistive device prior to recent CVA. On the morning of 07/22/2021 he was lethargic and minimally responsive. He was slumped heavily to the left and could not move the left arm or left leg. He had a mild left facial droop. He was aphasic and unable to follow commands. He was unable to feed himself and he had done this the preceding day. His LKW is unknown. He had also use the NuStep for 14 minutes using all 4 extremities on 07/21/2021. A stroke alert was called and he was taken to CT scan. Noncontrast CT brain showed a new area of acute infarct in the territory of the left posterior cerebral artery. There were no new findings on the right. CTA of the head and neck revealed no large vessel occlusion or hemorrhage. He was started on an IV of normal saline and given 1 L over 1 hour. Ejection fraction is recently known to me normal. [facility] contacted m[facility] for [facility] evaluation as a level 2 transfer. He will be transferred to [facility] by mobile intensive care unit. was notified and is agreeable to the transfer. A BMP on 07/21/2021 showed a low potassium at 3.1 and he is receiving a IV supplement. All oral meds are on hold until he can be seen by ST and have his swallowing assessed. By the time transfer was to occur he was able to lift his Left arm but, he can still not follow commands. He can not move either leg and he is still leaning heavily to the left. Current vital signs are blood pressure 6/83, pulse 56, respiratory rate 20 and he is 94% saturated on room air but supplemental oxygen was applied due to the stroke symptoms. Physical Exam Const Constitutional Narrative: He is awake and has his eyes open and he is not consistently making eye contact. He cannot follow commands. He does to be in any pain. He is nonverbal. He occasionally says yes but it is not in response to a question. HEENT normocephalic Eyes PERRL Neck no lymphadenopathy Resp normal respiratory effort, no use of accessory muscles and clear to auscultation bilaterally Resp Narrative: Diminished GI soft to palpation GI Narrative: No guarding with palpation. The abdomen is mildly distended and tympanic normal bowel sounds. Extremity Extremity Narrative: No clubbing and no cyanosis. There is no significant edema of the ankles. Skin General Skin Exam: no breakdown Rashes: rashes noted he has seborrheic dermatitis of the jones area and nasolabial folds, Neuro Neuro Narrative: 1. LOC Alert: 2 2. LOC/Orientation: 2 3. LOC Commands: 2 4. Horizontal extraocular movements : 0 5. Visual hester: blinks to confrontation 6. Facial Paresis: 1 7. Dysarthria: 0 8. Best Language/aphasia: 3 9. Motor Left ARM : 2 10. Motor Left LE 11. Motor Right ARM: 0 12. Motor Right leg LE 13. Limb ataxia: 0 14. Sensory: 2 15. Neglect: [] NIHSS 22 MRS 5 Weight / BMI Weight Weight: 238 lb 8.642 oz Body Mass Index (BMI) 35.3 D/C Instructions Discharge Diet: - (NPO) Meaningful Use Info Meaningful Use Diagnoses (Choose all that apply): Ischemic CVA CVA Therapy Assessed for PT,OT and/or ST?: Yes Ischemic Stroke Antithrombotic order at d/c?: Yes Dx of Atrial fib/flutter?: Yes Anticoagulant at discharge?: No Reason anticoagulant not ordered: Treatment not Indicated (were ordered to start 07/26/21) Statins at discharge?: Yes Primary Dx Acute Ischemic CVA?: Yes IV tPA ordered during stay?: No Reason IV t-PA not ordered: Treatment not Indicated (He had TPA on 07/12/21) Discharge Plan Admission Admit Date/Time: 07/22/21 11:06 Attending Provider: Luis Carlos Gallardo Chi Primary Care Provider: Tunde Beard Discharge Orders/Prescriptions Prescriptions: No Action ascorbic acid (vitamin C) 1,000 mg tablet 1,000 mg PO DAILY RF: 0 vitamin E (dl, acetate) 400 unit capsule 400 unit PO DAILY RF: 0 gabapentin 600 mg tablet See Rx Instructions PO BID RF: 0 calcium and magnesium carbonat Suspension 30 ml PO DAILY PRN (Reason: (Drug) Ingestion) RF: 0 lisinopril 20 MG tablet 20 mg PO DAILY RF: 0 citalopram 20 MG tablet 20 mg PO QHS RF: 0 cholecalciferol (vitamin D3) 400 UNIT capsule 400 unit PO DAILY RF: 0 atorvastatin 40 mg Tablet 40 mg PO QHS RF: 0 carvedilol 12.5 mg Tablet 12.5 mg PO Q12H RF: 0 citalopram [Celexa] 40 mg Tablet 40 mg PO QHS RF: 0 melatonin 3 mg Tablet 3 mg PO QHS RF: 0 methenamine hippurate 1 gram Tablet 1 g PO DAILY RF: 0 tamsulosin 0.4 mg Capsule 0.4 mg PO QHS RF: 0 baclofen 10 mg Tablet 10 mg PO QHS RF: 0 aspirin 81 mg Tablet,Chewable 81 mg PO DAILY RF: 0 gabapentin 100 mg Capsule 200 mg PO TID RF: 0 nystatin 100,000 unit/gram Powder 1 applic TOPICAL TID RF: 0 finasteride [Proscar] 5 mg Tablet 5 mg PO DAILY RF: 0 Ensure Enlive Liquid 120 ml PO 4X/DAY RF: 0 sennosides 17.2 mg Tablet 17.2 mg PO DAILY RF: 0 ferrous sulfate 324 mg (65 mg iron) Tablet,Delayed Release (Dr/Ec) 324 mg PO TID RF: 0 nifedipine 30 mg tablet extended release 30 mg PO DAILY RF: 0 Referrals / Follow Up: Tunde Beard DO [Primary Care Provider] - Charges/Coding Visit Charges Inpatient E&M: 02288 Disch Hosp
[2021-07-22] MEDS: Potassium Chloride 10mEq/100mL 10 MEQ/100 ML IV.SOLN. 100 MEQ IV BOLUS (12:10)
--- NOTE | 2021-07-22 12:34 | PCM.HP.STD ---
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 On the morning of 07/22/2021 he was extremely lethargic and could not be aroused initially. He was finally aroused and he was transferred into a chair with the [place] lift. Leaning heavily to the left and was nonverbal. He could not follow commands. His eyes were open but he did not make eye contact. The left arm had no movement except a very weak hand grasp. He had no movement of either lower extremity. No one had observed any tonic-clonic activity and he had not been incontinent. He had decreased urine output through the night mucous membranes were dry. A stroke alert was called and he was taken to CT scan where a noncontrast CT brain showed a new evolving infarct in the left posterior cerebral artery distribution. A CTA of the head and neck vessel occlusion and no intracerebral hemorrhage. Since he recently had tPA on 07/12/2021 for the left MCA infarct he was not a candidate for tPA. [facility] was contacted and [facility] 2 level since the CTA showed no LVO. He was admitted to the ICU while we awaited the transfer team. [facility] Medical History Atrial fibrillation BPH (benign prostatic hypertrophy) Central cord syndrome Cervical spinal stenosis Degenerative joint disease (DJD) of lumbar spine Depression Essential hypertension Family history of hypertension History of DVT (deep vein thrombosis) History of spinal cord injury Neurogenic bladder Premature ventricular contractions Sick sinus syndrome Spinal cord injury Subluxation of C6-C7 cervical vertebrae Home Medications lisinopril 20 mg PO DAILY 06/24/15 [History Last Taken 03/28/19] ascorbic acid (vitamin C) 1,000 mg tablet 1,000 mg PO DAILY tab 02/14/18 [History Last Taken 03/28/19] vitamin E (dl, acetate) 180 mg (400 unit) capsule 400 unit PO DAILY 02/14/18 [History Last Taken 03/28/19] cholecalciferol (vitamin D3) 400 unit PO DAILY 03/29/19 [History Last Taken 03/28/19] citalopram 20 mg PO QHS 03/29/19 [History Last Taken 03/28/19] calcium and magnesium carbonates oral suspension 30 ml PO DAILY PRN 09/25/20 [History Last Taken Unknown] gabapentin 600 mg tablet See Rx Instructions PO BID 09/25/20 [History Last Taken Unknown] aspirin 81 mg PO DAILY 07/18/21 [History Last Taken Unknown] atorvastatin 40 mg PO QHS 07/18/21 [History Last Taken Unknown] baclofen 10 mg PO QHS 07/18/21 [History Last Taken Unknown] carvedilol 12.5 mg PO Q12H 07/18/21 [History Last Taken Unknown] citalopram [Celexa] 40 mg PO QHS 07/18/21 [History Last Taken Unknown] ferrous sulfate 324 mg PO TID 07/18/21 [History Last Taken Unknown] finasteride [Proscar] 5 mg PO DAILY 07/18/21 [History Last Taken Unknown] food supplemt, lactose-reduced [Ensure Enlive] 120 ml PO 4X/DAY 07/18/21 [History Last Taken Unknown] gabapentin 200 mg PO TID 07/18/21 [History Last Taken Unknown] melatonin 3 mg PO QHS 07/18/21 [History Last Taken Unknown] methenamine hippurate 1 g PO DAILY 07/18/21 [History Last Taken Unknown] nifedipine 30 mg PO DAILY 07/18/21 [History Last Taken Unknown] nystatin 1 applic TOPICAL TID 07/18/21 [History Last Taken Unknown] sennosides 17.2 mg PO DAILY 07/18/21 [History Last Taken Unknown] tamsulosin 0.4 mg PO QHS 07/18/21 [History Last Taken Unknown] Allergy/AdvReac Type Severity Reaction Status Date / Time ciprofloxacin [From Cipro] Allergy Hives Verified 07/12/21 09:25 sulfamethoxazole Allergy PT UNSURE Verified 07/12/21 09:25 [From Bactrim] OF REACTION trimethoprim [From Bactrim] Allergy PT UNSURE Verified 07/12/21 09:25 OF REACTION Family History Mother Breast cancer Cancer Brain cancer Sister Diabetes Hypertension CHF (congestive heart failure) Kidney disease Sister CHF (congestive heart failure) Cardiac defibrillator in situ Other Family history of hypertension Surgical History History of neck surgery History of permanent cardiac pacemaker placement S/P cervical spinal fusion Social History household members: spouse Smoking Status: Never smoker alcohol intake: current alcohol intake frequency: holidays/special occasions only Alcohol type: wine substance use type: does not use caffeine: Yes Type: coffee Number of servings: 1 what type of physical activity do you participate in: other details: Health point frequency: 1-2 times per week duration: 45-60 minutes/day seatbelt use: always do you feel safe at home: Yes ROS Review of Systems ROS Unobtainable: due to encephalopathy, due to endotracheal tube, due to mental condition, due to mental status and other Details: due to global aphasia Vital Signs Vital Signs Vital Signs: 07/22/21 11:36 Pulse Rate 56 L Weight Weight: 238 lb 8.642 oz Body Mass Index (BMI) 35.3 Physical Exam Const Constitutional Narrative: Physical Exam Const Constitutional Narrative: He is awake and has his eyes open and he is not consistently making eye contact. He cannot follow commands. He does to be in any pain. He is nonverbal. He occasionally says yes but it is not in response to a question. HEENT normocephalic Eyes PERRL Neck no lymphadenopathy Resp normal respiratory effort, no use of accessory muscles and clear to auscultation bilaterally Resp Narrative: Diminished GI soft to palpation GI Narrative: No guarding with palpation. The abdomen is mildly distended and tympanic normal bowel sounds. Extremity Extremity Narrative: No clubbing and no cyanosis. There is no significant edema of the ankles. Skin General Skin Exam: no breakdown Rashes: rashes noted he has seborrheic dermatitis of the jones area and nasolabial folds, Neuro Neuro Narrative: 1. LOC Alert: 2 2. LOC/Orientation: 2 3. LOC Commands: 2 4. Horizontal extraocular movements : 0 5. Visual hester: blinks to confrontation 6. Facial Paresis: 1 7. Dysarthria: 0 8. Best Language/aphasia: 3 9. Motor Left ARM : 2 10. Motor Left LE 11. Motor Right ARM: 0 12. Motor Right leg LE 13. Limb ataxia: 0 14. Sensory: 2 15. 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
[2021-07-22 15:31] LABS: Bedside Glucose 103 mg/dL (74-106)
== END 2021-07-22 11:35 | disposition short-term general hospital (02) | DRG 64 ==
PROVIDERS: Admitting Provider Family Medicine Geriatric Medicine; PCP Preventive Medicine Occupational Medicine; Visit Provider Family Medicine Geriatric Medicine
DX: I63.411 Cerebral infarction due to embolism of right middle cerebral artery (principal); G82.54 Quadriplegia, C5-C7 incomplete; G81.94 Hemiplegia, unspecified affecting left nondominant side; I67.1 Cerebral aneurysm, nonruptured; I49.5 Sick sinus syndrome; I48.91 Unspecified atrial fibrillation; R47.01 Aphasia; E78.5 Hyperlipidemia, unspecified; E66.9 Obesity, unspecified; I63.412 Cerebral infarction due to embolism of left middle cerebral artery; G83.89 Other specified paralytic syndromes; E87.6 Hypokalemia; I10 Essential (primary) hypertension; N40.0 Benign prostatic hyperplasia without lower urinary tract symptoms; M48.02 Spinal stenosis, cervical region; M51.36 Other intervertebral disc degeneration, lumbar region; Z86.73 Personal history of transient ischemic attack (TIA), and cerebral infarction without residual deficits; F32.A Depression, unspecified; R29.722 NIHSS score 22; Z86.718 Personal history of other venous thrombosis and embolism; N31.9 Neuromuscular dysfunction of bladder, unspecified; Z79.899 Other long term (current) drug therapy; Z79.82 Long term (current) use of aspirin; Z95.0 Presence of cardiac pacemaker; Z98.1 Arthrodesis status; Z68.35 Body mass index [BMI] 35.0-35.9, adult
CPT/HCPCS: 82962

== ENCOUNTER 2021-07-25 07:15 | Inpatient (IN) | payer MEDICARE, OTHER, SELFPAY ==
[2021-07-25 08:30] VITALS: BP 130/72; PULSE 77; RESP 16; TEMP 36.1; O2SAT 97; BMI 34.2
--- NOTE | 2021-07-25 08:30 | NURSING ---
aware of admission and verified code status as full code and verbalized understanding.
[2021-07-25] MEDS: Potassium Chloride Oral Tablet 20 MEQ PO (11:05)
[2021-07-25] MEDS: Ferrous Sulfate 325 MG Tablet PO ×2 (11:05→17:42)
[2021-07-25] MEDS: Senna Tablet 2 TABLET PO (11:05)
[2021-07-25] MEDS: Methenamine Hippurate 1 GM Tablet PO (11:05)
[2021-07-25] MEDS: NIFEdipine 30 MG Tablet PO (11:05)
[2021-07-25] MEDS: Carvedilol 12.5 MG Tablet PO ×2 (11:06→20:33)
[2021-07-25] MEDS: Aspirin 81 MG TAB.CHEW PO (11:06)
[2021-07-25] MEDS: Lisinopril 20 MG Tablet PO (11:10)
[2021-07-25] MEDS: Ketoconazole Cream 1 APPLIC TOPICAL ×2 (11:22→20:34)
[2021-07-25] MEDS: Finasteride 5 MG Tablet PO (11:22)
[2021-07-25] MEDS: Ascorbic Acid 500 MG Tablet 1000 MG PO (11:26)
--- NOTE | 2021-07-25 13:01 | HP.PCM_ITS ---
HPI - General General Date of Admission: 07/25/21 HPI Narrative Mr. Ignacio Barron is a 76-year-old man with a history of atrial fibrillation, sick sinus syndrome, permanent pacemaker implantation, incomplete paraplegia secondary to subluxation of C5/C6 sustained due to syncope in the remote past, right anterior communicating artery aneurysm and recent left embolic MCA CVA's on 07/12/2021 for which he received tPA who was recently transferred from [facility] to the acute rehab unit at [facility] on 07/18/2021 for 3 hours of therapy daily to restore function/independence at or near his prior level. He was ambulatory with 2 canes prior to recent CVA. On 07/22/21 he had an abrupt change in mental status and neurologic exam. He could not be aroused at approximately 9:30AM. He would not open his eyes or follow commands. He was nonverbal. He could not move either leg and could also not move the LUE. He had a mild left facial droop and was leaning heavily to the left and could not maintain an upright posture. The previous day he was on the Nu-step moving all extremities. A stroke alert was called and he was taken for an emergent noncontrast CT brain which the radiologist read as a new infarct in the territory of the L posterior cerebral artery. CTA showed no LVO. He was not a candidate for TPA because he had TPA on 07/12/21. Consult was obtained with neurology at [facility] and they [facility] as a level 2 alert. At the time of this event he was not on an anticoagulant due to the large size of the L MCA stroke and risk for hemorrhagic conversion. He was not to start anticoagulation until 07/26/21. The LUE weakness had resolved by the time he arrived at [facility]. They interrogated his PM and he was in AF with controlled VR at the time of the event at [facility]. Their W/U was negative for a new stroke and they attributed the changes to a TIA due to the AF with decreased cerebral blood flow. He was transported back to [facility] acute rehab on 07/25/21 for 3 hours of therapy daily to restore function at or near his level prior to the stroke so that he may return home. Prior to the stroke he was able to ambulate short distances with 2 quad canes. He is very strong in his upper extremities. [facility] Medical History (Updated 07/31/21 @ 15:[address] 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 Neurogenic bladder Neurogenic bowel Neuropathy 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.9) Paraplegia Premature ventricular contractions Sick sinus syndrome Sick sinus syndrome Spinal cord injury Subluxation of C6-C7 cervical vertebrae Home Medications lisinopril 20 mg PO DAILY 06/24/15 [History Last Taken 03/28/19] vitamin E (dl, acetate) 180 mg (400 unit) capsule 400 unit PO DAILY 02/14/18 [History Last Taken 03/28/19] citalopram 40 mg PO QHS 03/29/19 [History Last Taken 03/28/19] aspirin 81 mg PO DAILY 07/18/21 [History Last Taken Unknown] atorvastatin 40 mg PO QHS 07/18/21 [History Last Taken Unknown] baclofen 10 mg PO QHS 07/18/21 [History Last Taken Unknown] carvedilol 12.5 mg PO Q12H 07/18/21 [History Last Taken Unknown] ferrous sulfate 324 mg PO TID 07/18/21 [History Last Taken Unknown] finasteride [Proscar] 5 mg PO DAILY 07/18/21 [History Last Taken Unknown] food supplemt, lactose-reduced [Ensure Enlive] 120 ml PO 4X/DAY 07/18/21 [History Last Taken Unknown] gabapentin 200 mg PO TID 07/18/21 [History Last Taken Unknown] melatonin 3 mg PO QHS 07/18/21 [History Last Taken Unknown] methenamine hippurate 1 g PO DAILY 07/18/21 [History Last Taken Unknown] nifedipine 30 mg PO DAILY 07/18/21 [History Last Taken Unknown] nystatin 1 applic TOPICAL BID 07/18/21 [History Last Taken Unknown] sennosides 17.2 mg PO DAILY 07/18/21 [History Last Taken Unknown] tamsulosin 0.4 mg PO QHS 07/18/21 [History Last Taken Unknown] Lactobacillus acidophilus [Acidophilus] 1 tab PO DAILY 07/25/21 [History Last Taken Unknown] acetaminophen 1,000 mg PO Q6H PRN 07/25/21 [History Last Taken Unknown] apixaban [Eliquis] 5 mg PO BID 07/25/21 [History Last Taken Unknown] ketoconazole 1 applic TOPICAL BID 07/25/21 [History Last Taken Unknown] potassium chloride 20 meq PO DAILY 07/25/21 [History Last Taken Unknown] Allergy/AdvReac Type Severity Reaction Status Date / Time ciprofloxacin [From Cipro] Allergy Hives Verified 07/12/21 09:25 sulfamethoxazole Allergy PT UNSURE Verified 07/12/21 09:25 [From Bactrim] OF REACTION trimethoprim [From Bactrim] Allergy PT UNSURE Verified 07/12/21 09:25 OF REACTION Family History Mother Breast cancer Cancer Brain cancer Sister Diabetes Hypertension CHF (congestive heart failure) Kidney disease Sister CHF (congestive heart failure) Cardiac defibrillator in situ Other Family history of hypertension Surgical History History of neck surgery History of permanent cardiac pacemaker placement S/P cervical spinal fusion Social History household members: spouse Smoking Status: Never smoker alcohol intake: current alcohol intake frequency: holidays/special occasions only Alcohol type: wine substance use type: does not use caffeine: Yes Type: coffee Number of servings: 1 what type of physical activity do you participate in: other details: Health point frequency: 1-2 times per week duration: 45-60 minutes/day seatbelt use: always do you feel safe at home: Yes ROS Review of Systems ROS Unobtainable: other Details: Due to recent Stroke with receptive and expressive aphasia Vital Signs Vital Signs Vital Signs: 07/25/21 08:30 07/25/21 10:00 Temperature 97.0 F L Temperature Source Oral Pulse Rate 77 Respiratory Rate 16 Respiratory Effort Normal Non-Labored Respiratory Depth Normal Respiratory Pattern Normal Blood Pressure 130/72 H Blood Pressure Mean 91 Blood Pressure Source Monitor Blood Pressure Position Semi-Fowlers Blood Pressure Location Right Arm Pulse Ox 97 Oxygen Delivery Method Room Air Room Air Weight Weight: 231 lb 9.6 oz Body Mass Index (BMI) 34.2 Indicators for Scoring Admitted with or Primary Diagnosis of CVA/Stroke: Yes Hx of CVA/Stroke: Yes Modified [place] Score MRS Score at time of Evaluation: 5-Severe disability NIHSS NIHSS 1a. Level of Consciousness: Alert; keenly responsive 1b. LOC Questions: Answers one question correctly. 1c. LOC Commands: Performs neither task correctly. 2. Best Gaze: Normal 3. Visual: No visual loss 4. Facial Palsy: Minor paralysis (flattened nasolabial fold, asymmetry on smiling) 5a. Left Arm: No drift; arm holds 90 (or 45) degrees for full 10 seconds 5b. Right Arm: No drift; arm holds 90 (or 45) degrees for full 10 seconds 6a. Left Leg: Some effort against gravity; 6b. Right Leg: Some effort against gravity; 7. Limb Ataxia: Absent 9. Best Language: Severe aphasia; 10. Dysarthria: Normal 11. Extinction and Inattention: No abnormality Total: 10 Physical Exam Const alert, no apparent distress and well nourished General Appearance: cooperative and well developed HEENT normocephalic Eyes PERRL and EOMs intact bilaterally Neck Neck Narrative: Has some muscle tightness in the post cervical and trapezius muscles Lymph Lymphatic: no lymphadenopathy noted and no lymphedema noted Resp normal respiratory effort and clear to auscultation bilaterally Cardio no rub and no gallops Cardio Narrative: irregular with controlled VR. Heart Sounds: murmur systolic II/ GI normal to inspection, nondistended, normoactive bowel sounds, soft to palpation and non-tender GI Narrative: no guarding with palpation Extremity normal capillary refill and no clubbing, cyanosis or edema Skin Skin Narrative: He has a few stage II decubitus ulcers on the buttocks that he did not have at DC from rehab recently Rashes: no rashes Neuro Neuro Narrative: see the NIHSS. He has both receptive and expressive aphasia and responses to questions and commands are inconsistent. He was non-verbal p rior to transfer to [facility] recently. Now able to say some words but, not speaking in sentences and speech is halting. Psych cooperative Psych Narrative: He is very motivated and wants to do things without assist if he can. 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 Fall precautions Assess for Anxiety/Depression - continue the Citalopram GI prophylaxis not necessary - he is eating well and denies any pain, BS's are normal and has no pain or guarding with palpation of the epigastric area. DVT prophylaxis with TEDS and SCD's. Will start Apixaban 5 mg BID in the AM. Follow up with Dr. Lucia, Dr. Quan and neurology following DC from [facility] AM lab including CMP, CBC, Mag and Phos was reviewed. Charges/Coding Visit Charges Inpatient E&M: 79494 Subs Hosp L3
--- NOTE | 2021-07-25 13:12 | PCM.RU.PYE ---
Admission Information Primary Diagnosis:: Post stroke debility Status Changes from Prescreening?: No changes Identified Actual Problem List:: UTI, Skin Intergrity (stage II decubitus ulcers on the buttocks), Cognitve Impr/Memory Loss, Depression, Bowel, Constipation (neurogenic bowel), Alteration in Sleep, Mobility Impaired, Self Care Deficit, Ineffective Communication, Know.Dfct/Disease Process, Know.Dfct of Medicaitons, BP, Hypertension and Alteration-Leisure Activ. Potential Problem List:: DVT, Bleeding, Infection, UTI, Aspiration, Falls, Skin Integrity and Depression Risk of Complications DVT: LMWH and GABRIELE Hose Bleeding: Monitor Lab Values, Nursing to Teach Precautions for anti-coagulation therapy., Wound, if applicable, to be assessed every shift. and Stroke patients assessed for lethargy or change in status. Infection: Clinical Staff to Monitor for S/S of infection: and S/S of infection include fever, redness, warmth, etc. Urinary Tract Infection: Monitor for frequency, burning, discomfort, or incontinence. and Nursing will obtain urine sample for urinalysis and C&S when ordered. Aspiration: Clinical staff will monitor for coughing, drooling, congestion., Speech will evaluate swallowing and dsyphasia. and Nursing will monitor patient swallowing during meals. Falls: Patient will be evaluated for Fall Precautions and Patient will be placed on Fall Precautions as indicated per protocol. Skin Breakdown: Nursing will assess skin daily using assessment tool. and Nursing will place on Skin Breakdown Precautions as indicated. Pain: Clinical staff will assess patient's pain level per protocol., Medications will be given, if needed, and the pain level reassessed. and Other methods: Massage, distraction, decrease stimulus, etc. used PRN. Plan of Care Patient requires physician specializing in physical medicine and rehab oversight to provide close medical supervision of rehab issues including: Pain Management, Sleep Problems, Bowel and Bladder, Medical and co-morbidity Management, DVT prophylaxis, Rehabilitation Leadership and Coordination of treatment team Patient needs Physical Therapy: For a minimum of 1 hour and At least 5 out of 7 days Patient needs Physical Therapy to improve:: Mobility, Strengthening, Transfers, Stretching, ROM, Endurance, Stairs, Gait and Balance Patient needs Occupational Therapy: For a minimum of 1 hour and At least 5 out of 7 days Patient needs Occupational Therapy to improve ADL's incl.: Eating, Grooming, Bathing, Dressing, Toileting, Toilet transfers, Community Reintegration, Higher functioning activities, Household tasks, Adaptive Equipment, Splinting and Other activities as determined Patient requires speech therapy: For a minimum of 1 hour and At least 5 out of 7 days Patient requires speech therapy for: Swallowing, Cognition, Language Skills and Compensatory Strategies Patient requires 24/ Rehabilitation Nursing for: Pain Issues, Identifying and preventing risk factors, Monitoring and reporting current medical conditions, Assisting with ambulation, transfer, and all ADL's, Teaching patients about disease process and medications, Family teaching, Providing safe environment, Bowel and Bladder Issues, Skin integrity and Medication Management Patient needs Upholstery Parts Sorter/ Case Management for: Discharge Planning, Arranging Home Equipment or Services and Family Interventions Patient needs Dietary and Nutrition Services for: Adequate Nutrition, Nutritional Supplements and Nutritional Education Goals Patient will remain: free from falls and or injury at time of discharge. Patient will perform bed mobility at: MOD I level of assist. Patient will complete transfers from bed to chair at: MOD I level of assist. Patient will ambulate: with LRD and - (20' at Min assist ) Patient will complete upper body dressing at: - (min assist X1) Patient will complete lower body dressing at: - (min Assist X1) Patient will complete toileting at: - (min assist X1) Patient will perform bathing at: MOD I level of assist. Patient will complete grooming at: - (supervision/set up) Patient will achieve: - (1 curb step at min assist with LRD.....using 2 quad canes in the past) Patient will have pain level of: of 3 or less Patient's skin will: remain intact (He has stage II decubitus ulcers on the buttocks at presentation to rehab on 07/25/21) Patient will receive: adequate nutrition. Discharge Planning Pt Prognosis for Sig. Practical Improv. w/in Reasonable Time: Good Estimated Length of stay (days): 28 Anticipated D/C Destination: Home with Home Health Was Preadmission Assessment Accurate?: Yes
[2021-07-25] MEDS: Gabapentin 100 MG Capsule 200 MG PO ×2 (13:56→20:33)
[2021-07-25] MEDS: Acetaminophen 500 MG Tablet 1000 MG PO (13:56)
[2021-07-25] MEDS: Menthol/Lanolin/Calamine/Znox 113 GM Tube 1 APPLIC TOPICAL ×2 (13:56→20:35)
[2021-07-25 15:07] LABS: Mucous, Urine 0 SEEN /hpf (<or=2+)
[2021-07-25 15:13] LABS: Color, Urine Yellow (Yellow); Glucose, Dipstick Normal (Normal); Ketone-Dipstick 5 mg/dl (Negative); Leukocyte Esterase-Dipstick 500 /ul (Negative); Nitrite-Dipstick Positive (Negative); Occult Blood-Urine 50 /ul (Negative); Protein-Dipstick 30 mg/dl (Negative); Urine Clarity Sl. Cloudy (Clear); Urine Urobilinogen 8 mg/dl (Normal)
--- NOTE | 2021-07-25 15:20 | CASEMGMT ---
Social Work Patient unable to complete admit assessment. Assessment completed via chart review. Team meeting will be Mondays. [facility] unable to assess. Inquired to Dr. Lozoya about Palliative referral. Dr agreed. Referral made via email to [facility]. Mayela Cole MSW FISHING BOAT MATE
[2021-07-25 15:21] LABS: Urine Bilirubin Dipstick 1 mg/dL (Negative)
[2021-07-25 15:22] LABS: Bacteria 1+ /hpf (None Seen); Red Blood Cells-Urine 0-5 SEEN /hpf (0-5); Squamous Epithelial Cells - UA 0-5 SEEN /hpf (0-5); White Blood Cells 25-50 SEEN /hpf (0-5)
[2021-07-25] MEDS: Juven (unflavored) Packet 1 PACKET PO (17:43)
[2021-07-25 19:57] VITALS: BP 128/55; PULSE 79; RESP 17; TEMP 36.2; O2SAT 94
[2021-07-25] MEDS: Tamsulosin HCl 0.4 MG Capsule PO (20:33)
[2021-07-25] MEDS: Atorvastatin Calcium 40 MG Tablet PO (20:33)
[2021-07-25] MEDS: Citalopram 40 MG TABLET PO (20:33)
[2021-07-25] MEDS: Baclofen 10 MG Tablet PO (20:33)
[2021-07-25] MEDS: Nystatin Powder 15gm Bottle 1 APPLIC TOPICAL (20:34)
[2021-07-25] MEDS: MELATONIN 3 MG TABLET PO (22:18)
[2021-07-26] MEDS: Nystatin Powder 15gm Bottle 1 APPLIC TOPICAL ×2 (05:48→21:27)
[2021-07-26] MEDS: Menthol/Lanolin/Calamine/Znox 113 GM Tube 1 APPLIC TOPICAL ×3 (05:48→21:26)
[2021-07-26] MEDS: Gabapentin 100 MG Capsule 200 MG PO ×3 (05:48→21:25)
[2021-07-26 08:07] VITALS: BP 136/84; PULSE 65; RESP 16; TEMP 35.8; O2SAT 95
[2021-07-26 09:23] LABS: Absolute Lymphocyte Count 1.06 X10^3/uL (0.83-4.51); Absolute Neutrophil Count 6.5 X10^3/uL (2.0-7.7); Basophil# 0.05 X10^3/uL; Basophil% 0.6 % (0-1); Eosinophil# 0.15 X10^3/uL; Eosinophils% 1.8 % (0-5); Hematocrit 39.5 % (40-54); Hemoglobin 13.2 g/dL (13.0-16.5); Lymphocyte # 1.06 X10^3/ul (0.83-4.51); Lymphocyte % 12.6 % (19-41); Mean Corp Hgb Conc 33.4 g/dL (32-36); Mean Corpuscular Hgb 30.1 pg (27.0-32.0); Mean Corpuscular Volume 90.2 fL (80-94); Monocyte# 0.62 X10^3/uL; Monocyte% 7.4 % (0-10); NRBC Flagged by Analyzer 0 % (0-5); Neutrophil # 6.47 X10^3/uL (2.7-7.7); Neutrophil % 77.1 % (47-70); Platelet Count 213 K/mm3 (150-450); RBC Distribution Width CV 14.3 % (11.6-14.6); RBC Distribution Width SD 46.7 fl (35.1-43.9); Red Blood Count 4.38 M/mm3 (4.6-6.2); White Blood Count 8.4 K/mm3 (4.4-11.0)
[2021-07-26 09:38] LABS: AST(SGOT) 26 U/L (15-37); Alanine Aminotransfer ALT/SGPT 46 U/L (16-61); Albumin, Serum 3.4 g/dL (3.2-5.0); Alkaline Phosphatase 83 U/L (45-117); Anion Gap 7 (5-15); BUN 34 mg/dL (7-18); BUN/Creat Ratio 28.6 RATIO (10-20); Chloride 108 mmol/L (98-107); Creatinine, Serum 1.19 mg/dL (0.70-1.30); EST Glomerular Filtration Rate 63 mL/min (>60); Est Glom Filt Rate - Afr Amer 77 mL/min (>60); Estimated Creatinine Clearance 53.64 ml/min; Globulin 3.4 g/dL (2.2-4.2); Glucose 145 mg/dL (74-106); Magnesium 2.1 mg/dL (1.6-2.6); Phosphorus 2.8 mg/dL (2.5-4.9); Potassium 3.7 mmol/L (3.5-5.1); Protein, Total 6.8 g/dL (6.4-8.2); Sodium Level 138 mmol/L (136-145)
[2021-07-26] MEDS: Carvedilol 12.5 MG Tablet PO ×2 (09:39→21:26)
[2021-07-26] MEDS: Aspirin 81 MG TAB.CHEW PO (09:39)
[2021-07-26] MEDS: Ascorbic Acid 500 MG Tablet 1000 MG PO (09:39)
[2021-07-26] MEDS: Lisinopril 20 MG Tablet PO (09:39)
[2021-07-26] MEDS: Methenamine Hippurate 1 GM Tablet PO (09:39)
[2021-07-26] MEDS: Ferrous Sulfate 325 MG Tablet PO ×3 (09:39→16:17)
[2021-07-26] MEDS: NIFEdipine 30 MG Tablet PO (09:39)
[2021-07-26] MEDS: Juven (unflavored) Packet 1 PACKET PO (09:47)
[2021-07-26] MEDS: APIXABAN 5 MG TABLET PO ×2 (09:47→21:26)
[2021-07-26] MEDS: Potassium Chloride Oral Tablet 20 MEQ PO (09:47)
[2021-07-26] MEDS: Finasteride 5 MG Tablet PO (09:47)
[2021-07-26] MEDS: Senna Tablet 2 TABLET PO (09:48)
[2021-07-26] MEDS: Acetaminophen 500 MG Tablet 1000 MG PO (09:52)
[2021-07-26] MEDS: Ketoconazole Cream 1 APPLIC TOPICAL ×2 (10:02→21:27)
[2021-07-26] MEDS: Ensure Clear 120 ML Liquid PO ×2 (16:17→21:26)
[2021-07-26 21:00] VITALS: PULSE 60; RESP 17; O2SAT 94
[2021-07-26] MEDS: MELATONIN 3 MG TABLET PO (21:26)
[2021-07-26] MEDS: Baclofen 10 MG Tablet PO (21:26)
[2021-07-26] MEDS: Citalopram 40 MG TABLET PO (21:26)
[2021-07-26] MEDS: Tamsulosin HCl 0.4 MG Capsule PO (21:26)
[2021-07-26] MEDS: Atorvastatin Calcium 40 MG Tablet PO (21:26)
[2021-07-26 21:45] VITALS: BP 138/78; PULSE 60; RESP 17; TEMP 36.6; O2SAT 94
--- NOTE | 2021-07-27 03:38 | NURSING ---
Reviewed and agree with SLEEVE BOTTOM FELLER assessment.
[2021-07-27 05:00] VITALS: BMI 34.2
[2021-07-27] MEDS: Gabapentin 100 MG Capsule 200 MG PO ×3 (05:17→22:02)
[2021-07-27] MEDS: Nystatin Powder 15gm Bottle 1 APPLIC TOPICAL ×2 (05:18→22:04)
[2021-07-27] MEDS: Menthol/Lanolin/Calamine/Znox 113 GM Tube 1 APPLIC TOPICAL ×3 (05:18→22:03)
[2021-07-27] MEDS: NIFEdipine 30 MG Tablet PO (07:50)
[2021-07-27] MEDS: Ketoconazole Cream 1 APPLIC TOPICAL ×2 (07:50→22:06)
[2021-07-27] MEDS: Ferrous Sulfate 325 MG Tablet PO ×3 (07:51→17:04)
[2021-07-27] MEDS: Carvedilol 12.5 MG Tablet PO ×2 (07:51→22:03)
[2021-07-27] MEDS: Ascorbic Acid 500 MG Tablet 1000 MG PO (07:51)
[2021-07-27] MEDS: Potassium Chloride Oral Tablet 20 MEQ PO (07:51)
[2021-07-27] MEDS: Methenamine Hippurate 1 GM Tablet PO (07:51)
[2021-07-27] MEDS: APIXABAN 5 MG TABLET PO ×2 (07:52→22:03)
[2021-07-27] MEDS: Finasteride 5 MG Tablet PO (07:53)
[2021-07-27] MEDS: Senna Tablet 2 TABLET PO (07:53)
[2021-07-27] MEDS: Lisinopril 20 MG Tablet PO (07:54)
[2021-07-27 10:00] VITALS: BP 112/57; PULSE 64; RESP 16; TEMP 36.3; O2SAT 95
--- NOTE | 2021-07-27 11:06 | NS ---
Discussed w/ RN Oliva- nursing will add Celestino to MAR to better monitor intake of supplement. Will d/c from diet order. Brooklynn Velasquez MS, RDN, LD
[2021-07-27] MEDS: Ensure Clear 120 ML Liquid PO ×2 (12:56→22:03)
[2021-07-27 14:59] VITALS: BMI 34.2
[2021-07-27] MEDS: Juven (unflavored) Packet 1 PACKET PO (17:04)
[2021-07-27 21:30] VITALS: BP 106/57; PULSE 82; RESP 17; TEMP 36.6; O2SAT 94; BMI 34.2
[2021-07-27] MEDS: Tamsulosin HCl 0.4 MG Capsule PO (22:02)
[2021-07-27] MEDS: MELATONIN 3 MG TABLET PO (22:02)
[2021-07-27] MEDS: Atorvastatin Calcium 40 MG Tablet PO (22:03)
[2021-07-27] MEDS: Citalopram 40 MG TABLET PO (22:03)
[2021-07-27] MEDS: Baclofen 10 MG Tablet PO (22:03)
--- NOTE | 2021-07-28 03:15 | NURSING ---
Reviewed and agree with INTEL RECRUITER assessment.
[2021-07-28] MEDS: Nystatin Powder 15gm Bottle 1 APPLIC TOPICAL ×2 (05:42→20:34)
[2021-07-28] MEDS: Menthol/Lanolin/Calamine/Znox 113 GM Tube 1 APPLIC TOPICAL ×3 (05:42→20:34)
[2021-07-28] MEDS: Gabapentin 100 MG Capsule 200 MG PO ×3 (05:43→20:33)
[2021-07-28 07:46] VITALS: BP 110/59; PULSE 65; RESP 16; TEMP 36.1; O2SAT 93
[2021-07-28] MEDS: Ascorbic Acid 500 MG Tablet 1000 MG PO (08:36)
[2021-07-28] MEDS: NIFEdipine 30 MG Tablet PO (08:36)
[2021-07-28] MEDS: Potassium Chloride Oral Tablet 20 MEQ PO (08:36)
[2021-07-28] MEDS: Methenamine Hippurate 1 GM Tablet PO (08:36)
[2021-07-28] MEDS: Lisinopril 20 MG Tablet PO (08:37)
[2021-07-28] MEDS: Senna Tablet 2 TABLET PO (08:37)
[2021-07-28] MEDS: Ferrous Sulfate 325 MG Tablet PO ×2 (08:45→12:22)
[2021-07-28] MEDS: APIXABAN 5 MG TABLET PO ×2 (08:46→20:33)
[2021-07-28] MEDS: Juven (unflavored) Packet 1 PACKET PO ×2 (08:46→17:50)
[2021-07-28] MEDS: Finasteride 5 MG Tablet PO (08:47)
[2021-07-28] MEDS: Acetaminophen 500 MG Tablet 1000 MG PO ×2 (08:54→20:36)
[2021-07-28] MEDS: Ketoconazole Cream 1 APPLIC TOPICAL ×2 (08:55→20:32)
--- NOTE | 2021-07-28 11:26 | PN_ITS ---
Subjective Subjective Ignacio was seen on team rounds today. His Nuzhat and his son Bulmaro were present in the room for rounds. Afebrile VSS Maintaining appropriate oxygen saturation on RA Oral intake is adequate PVR's are elevated with the highest being 300 cc. He is being straight cath'd every 8 hours for neurogenic bladder. Discussed with nursing - no problems that need addressed Reviewed the PT/OT/ST notes - He is more verbal today. Able to focus. The strength in the UE's is 5/5 today BL. Medication list reviewed. Eliquis was started on Wednesday. He appears in no distress. Denies pain. He has expressive and receptive aphasia and meaningful conversation is hard. Family is happy with his care here and his tells me that if he has additional neurologic events she does not want him transferred to [facility] and she would like him to stay at [facility]. She tells me that she knows of no problems that he is having. Objective Data Objective Data Vital Signs: Vital Signs Temp Pulse Resp BP Pulse Ox 97.0 F L 65 16 110/59 L 93 07/28/21 07:46 07/28/21 07:46 07/28/21 07:46 07/28/21 07:46 07/28/21 07:46 Oxygen Delivery Method Room Air Weight: 231 lb 9.6 oz Body Mass Index (BMI) 34.2 Intake & Output: Intake and Output for Last 24 Hours 07/26/21 07/27/21 07/28/21 23:59 23:59 23:59 Intake Total 1200 / 1200 985 / 985 200 / 200 Output Total 800 / 800 Balance 400 / 400 985 / 985 200 / 200 Lab / Micro Data Result Diagrams: 07/26/21 09:15 07/26/21 09:15 Micro: Microbiology 07/25/21 14:45 Urine, Catheterized Urine Culture - Final Escherichia coli Physical Exam Const alert Constitutional Narrative: makes good eye contact General Appearance: cooperative and well kempt HEENT moist oral mucous membranes Eyes PERRL, EOMs intact bilaterally, conjunctivae normal and no scleral icterus Chest Chest: symmetrical chest wall rise Resp clear to auscultation bilaterally Resp Narrative: He can take deep breaths if I pantomime what I want him to do while he is looking at me. Effort and Inspection: able to speak in complete sentences Cardio Cardio Narrative: sounds regular. Rate is controlled. I do not hear a MM today......perhaps due to better hydration GI normal to inspection, nondistended, normoactive bowel sounds, soft to palpation, non-tender and non-distended Extremity normal capillary refill and no pedal edema Skin Skin Narrative: stage II decubitus ulcers are healing Rashes: no rashes Assessment & Plan Assessment/Plan (1) Cerebrovascular accident (CVA) due to embolic occlusion of middle cerebral artery: PLAN: Currently a MRS of 5. He stood in the parallel bars today. He is very motivated. Both legs are weak now....his states that his legs get w eak when he has a UTI. He is very motivated to get better and go home and has made it clear that he wants to do as much as he can without assist (2) TIA (transient ischemic attack): PLAN: Left side weakness has resolved and was attributed to a TIA related to AF with decreased CO and decreased cerebral perfusion. I discussed the importance of maintaining good fluid intake, marla since he is on Lasix, to prevent decreased cerebral perfusion. (3) Atrial fibrillation: PLAN: also has SSS and has a PM (4) Chronic anticoagulation: PLAN: Eliquis was started on 07/26 (5) 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: (6) UTI (urinary tract infection): PLAN: await the results of the urine culture.......currently on Keflex. He is allergic to Bactrim and Cipro. Charges/Coding Visit Charges Inpatient E&M: 83200 Subs Hosp L2
[2021-07-28] MEDS: Carvedilol 12.5 MG Tablet PO ×2 (12:29→20:33)
--- NOTE | 2021-07-28 15:07 | CASEMGMT ---
Social Work IDT met with patient, and son for Team meeting. Discussed patient's progress in PT/OT/ST and nursing. Pt making progress and is very motivated to improve. Explained Medicare approved 23 days with DC 08/17. Discussed the level of care pt needs to be at to return home. is petite and son/family work time recorder at [employer]. states she was dressing pt prior with him sitting in power w/c and home is w/c accessible, but if she has to do anything more than that, it is too much. Pt must be able to tx himself, toilet, bath, independently. SW offered SNF options covered by , if needed closer to DC, also provided nonskilled HHC list to begin searching for ceramic tile installation helper at home. Son and appreciative. Will ReTeam. SW to continue to follow. Mayela Cole, FILTER TIP CATCHER STOREROOM SUPERVISOR
[2021-07-28 15:16] VITALS: BMI 34.2
[2021-07-28 20:25] VITALS: BP 129/70; PULSE 64; RESP 18; TEMP 36.7; O2SAT 95; BMI 34.2
[2021-07-28] MEDS: Atorvastatin Calcium 40 MG Tablet PO (20:33)
[2021-07-28] MEDS: Baclofen 10 MG Tablet PO (20:33)
[2021-07-28] MEDS: Cephalexin 500 MG Capsule PO (20:33)
[2021-07-28] MEDS: Citalopram 40 MG TABLET PO (20:33)
[2021-07-28] MEDS: MELATONIN 3 MG TABLET PO (20:33)
[2021-07-28] MEDS: Tamsulosin HCl 0.4 MG Capsule PO (20:33)
--- NOTE | 2021-07-29 03:03 | NURSING ---
2024 pt was noted to be incontinent of a large amt of urine in his attends , prior to enema being done. pt did not retain fluid from enema and return of brown-green liquid was noted with no solid stool. pt cleansed and clean attends applied and while getting to pull attend up, pt voided a moderate amt of urine, with out informing staff that he needed to go. bladder scan completed at this time and value was 287cc, pt was not straight cathed at this time and rn made aware of bladder scan value. pt was changed again and repositioned for comfort
--- NOTE | 2021-07-29 03:27 | NURSING ---
reviewed and agree with BAR ROLLER documentation and assessment charting.
[2021-07-29] MEDS: Gabapentin 100 MG Capsule 200 MG PO ×3 (04:50→21:30)
[2021-07-29] MEDS: Cephalexin 500 MG Capsule PO ×3 (04:50→21:21)
[2021-07-29] MEDS: Menthol/Lanolin/Calamine/Znox 113 GM Tube 1 APPLIC TOPICAL ×3 (04:50→21:20)
[2021-07-29] MEDS: Nystatin Powder 15gm Bottle 1 APPLIC TOPICAL ×2 (04:50→21:39)
[2021-07-29 07:38] VITALS: BP 122/68; PULSE 56; RESP 16; TEMP 36.1; O2SAT 96
[2021-07-29] MEDS: Juven (unflavored) Packet 1 PACKET PO ×2 (07:59→16:43)
[2021-07-29] MEDS: Potassium Chloride Oral Tablet 20 MEQ PO (07:59)
[2021-07-29] MEDS: Ketoconazole Cream 1 APPLIC TOPICAL ×2 (08:00→21:22)
[2021-07-29] MEDS: Methenamine Hippurate 1 GM Tablet PO (08:02)
[2021-07-29] MEDS: Ascorbic Acid 500 MG Tablet 1000 MG PO (08:02)
[2021-07-29] MEDS: Senna Tablet 2 TABLET PO (08:02)
[2021-07-29] MEDS: NIFEdipine 30 MG Tablet PO (08:02)
[2021-07-29] MEDS: APIXABAN 5 MG TABLET PO ×2 (08:02→21:21)
[2021-07-29] MEDS: Lisinopril 20 MG Tablet PO (08:02)
[2021-07-29] MEDS: Finasteride 5 MG Tablet PO (08:02)
[2021-07-29] MEDS: Carvedilol 12.5 MG Tablet PO ×2 (08:02→21:20)
[2021-07-29] MEDS: Ferrous Sulfate 325 MG Tablet PO (12:18)
[2021-07-29 15:41] VITALS: BMI 34.2
[2021-07-29 18:57] VITALS: BP 122/64; PULSE 60; RESP 16; TEMP 36.6; O2SAT 97
[2021-07-29] MEDS: Citalopram 40 MG TABLET PO (21:20)
[2021-07-29] MEDS: Tamsulosin HCl 0.4 MG Capsule PO (21:21)
[2021-07-29] MEDS: Baclofen 10 MG Tablet PO (21:21)
[2021-07-29] MEDS: MELATONIN 3 MG TABLET PO (21:21)
[2021-07-29] MEDS: Atorvastatin Calcium 40 MG Tablet PO (21:22)
[2021-07-29] MEDS: Acetaminophen 500 MG Tablet 1000 MG PO (21:31)
--- NOTE | 2021-07-29 22:25 | NURSING ---
2130 pt noted to be sitting in the recliner and was noted to be frowning. when asked what was the matter pt was able to indicate that he had been in the chair since 1100 this am. staff went to listen pt lung sounds and it was noted that the pt was incontinent a large amt with pts shirt, pants, seat cushion and were saturated. pt upper body was cleansed and pt was transferred to the bed, and radha-care and legs were washed. pt was painful when laying down in he bed holding his right thigh and moaning. pt was off loaded while in the bed and feet elevated off the bed. rn made aware.
[2021-07-29 23:06] VITALS: BMI 34.2
--- NOTE | 2021-07-30 02:10 | NURSING ---
Reviewed and agree with TOOL DESIGNER APPRENTICE documentation and assessment charting.
[2021-07-30] MEDS: Cephalexin 500 MG Capsule PO ×3 (05:36→21:49)
[2021-07-30] MEDS: Nystatin Powder 15gm Bottle 1 APPLIC TOPICAL ×2 (05:36→21:50)
[2021-07-30] MEDS: Gabapentin 100 MG Capsule 200 MG PO ×3 (05:36→21:50)
[2021-07-30] MEDS: Menthol/Lanolin/Calamine/Znox 113 GM Tube 1 APPLIC TOPICAL ×3 (05:36→21:46)
[2021-07-30 08:11] VITALS: BP 126/64; PULSE 70; RESP 16; TEMP 36.2; O2SAT 96
[2021-07-30] MEDS: APIXABAN 5 MG TABLET PO ×2 (08:41→21:48)
[2021-07-30] MEDS: Lisinopril 20 MG Tablet PO (08:41)
[2021-07-30] MEDS: Potassium Chloride Oral Tablet 20 MEQ PO (08:41)
[2021-07-30] MEDS: Juven (unflavored) Packet 1 PACKET PO ×2 (08:41→17:11)
[2021-07-30] MEDS: Senna Tablet 2 TABLET PO (08:41)
[2021-07-30] MEDS: Ascorbic Acid 500 MG Tablet 1000 MG PO (08:41)
[2021-07-30] MEDS: Carvedilol 12.5 MG Tablet PO ×2 (08:41→21:48)
[2021-07-30] MEDS: NIFEdipine 30 MG Tablet PO (08:42)
[2021-07-30] MEDS: Finasteride 5 MG Tablet PO (08:42)
[2021-07-30] MEDS: Ketoconazole Cream 1 APPLIC TOPICAL ×2 (08:42→21:51)
[2021-07-30] MEDS: Methenamine Hippurate 1 GM Tablet PO (08:42)
[2021-07-30] MEDS: Acetaminophen 500 MG Tablet 1000 MG PO ×2 (10:58→17:11)
[2021-07-30] MEDS: Ferrous Sulfate 325 MG Tablet PO (11:02)
--- NOTE | 2021-07-30 14:32 | CASEMGMT ---
Social Work Palliative visited pt and contact . does not have a voicemail set up. Palliative will continue to attempt contacting to explain Palliative services. Mayela Cole, ELECTRICIAN SHOP PHOTOGRAPHIC AIDE
[2021-07-30 15:08] VITALS: BMI 34.2
[2021-07-30 19:52] VITALS: BP 133/86; PULSE 68; RESP 16; TEMP 36.2; O2SAT 94
[2021-07-30] MEDS: Citalopram 40 MG TABLET PO (21:47)
[2021-07-30] MEDS: Tamsulosin HCl 0.4 MG Capsule PO (21:48)
[2021-07-30] MEDS: MELATONIN 3 MG TABLET PO (21:49)
[2021-07-30] MEDS: Baclofen 10 MG Tablet PO (21:49)
[2021-07-30] MEDS: Atorvastatin Calcium 40 MG Tablet PO (21:49)
[2021-07-31 01:24] VITALS: BMI 34.2
--- NOTE | 2021-07-31 04:16 | NURSING ---
Reviewed and agree with CREAM GATHERER documentation and assessment charting.
[2021-07-31] MEDS: Menthol/Lanolin/Calamine/Znox 113 GM Tube 1 APPLIC TOPICAL ×3 (06:31→20:35)
[2021-07-31] MEDS: Cephalexin 500 MG Capsule PO ×3 (06:32→20:34)
[2021-07-31] MEDS: Nystatin Powder 15gm Bottle 1 APPLIC TOPICAL ×2 (06:32→20:33)
[2021-07-31] MEDS: Gabapentin 100 MG Capsule 200 MG PO ×3 (06:32→20:33)
[2021-07-31 07:39] VITALS: BP 116/65; PULSE 64; RESP 17; TEMP 36.4; O2SAT 95
[2021-07-31] MEDS: Juven (unflavored) Packet 1 PACKET PO ×2 (07:58→16:52)
[2021-07-31] MEDS: Lisinopril 20 MG Tablet PO (07:58)
[2021-07-31] MEDS: Carvedilol 12.5 MG Tablet PO ×2 (07:58→20:34)
[2021-07-31] MEDS: APIXABAN 5 MG TABLET PO ×2 (07:58→20:34)
[2021-07-31] MEDS: Finasteride 5 MG Tablet PO (07:58)
[2021-07-31] MEDS: Ketoconazole Cream 1 APPLIC TOPICAL ×2 (07:58→20:32)
[2021-07-31] MEDS: NIFEdipine 30 MG Tablet PO (07:58)
[2021-07-31] MEDS: Potassium Chloride Oral Tablet 20 MEQ PO (07:58)
[2021-07-31] MEDS: Senna Tablet 2 TABLET PO (07:58)
[2021-07-31] MEDS: Ascorbic Acid 500 MG Tablet 1000 MG PO (07:59)
[2021-07-31] MEDS: Methenamine Hippurate 1 GM Tablet PO (07:59)
[2021-07-31] MEDS: Acetaminophen 500 MG Tablet 1000 MG PO ×2 (09:51→20:32)
--- NOTE | 2021-07-31 11:58 | PCM.PROGNOTE ---
Subjective Subjective Afebrile VSS-blood pressures are consistently within goal with no hypotension. Orthostatics today are barely + and he denies lightheadedness. I stressed the importance of maintaining good fluid intake to maintain good cerebral perfusion and prevent additional TIA's........sx started to resolve on 07/21/21 prior to the transfer to [facility] after fluid bolus given and IV NS started. Maintaining appropriate oxygen saturation on RA Oral intake is adequate The weights are all over the place since admission but, it looks as though he has lost approximately 5 lbs since coming to rehab. Discussed with nursing - no problems that need addressed Reviewed the PT/OT/ST notes Medication list reviewed. Still not able to follow instructions consistently but, if I pantomime what I want him to do he will mimic me. He does not look to be in any discomfort and he denies pain. ROS is difficult due to the receptive and expressive aphasia. Objective Data Objective Data Vital Signs: Vital Signs Temp Pulse Resp BP Pulse Ox 97.5 F L 64 17 116/65 95 07/31/21 07:39 07/31/21 07:39 07/31/21 07:39 07/31/21 07:39 07/31/21 07:39 Oxygen Delivery Method Room Air Weight: 231 lb 9.6 oz Body Mass Index (BMI) 34.2 Intake & Output: Intake and Output for Last 24 Hours 07/29/21 07/30/21 07/31/21 23:59 23:59 23:59 Intake Total 720 / 720 400 / 400 240 / 240 Output Total 800 / 800 250 / 250 Balance 720 / 720 -400 / -400 -10 / -10 Lab / Micro Data Result Diagrams: 07/26/21 09:15 07/26/21 09:15 Micro: Microbiology 07/25/21 14:45 Urine, Catheterized Urine Culture - Final Escherichia coli Physical Exam Const alert and no apparent distress General Appearance: cooperative and well kempt Eyes PERRL and EOMs intact bilaterally Resp normal respiratory effort, normal air movement and clear to auscultation bilaterally Resp Narrative: Not tachypneic, no accessory muscle use, even with exertion. Effort and Inspection: able to speak in complete sentences Cardio regular rate, regular rhythm and no gallops Extremity no calf tenderness Extremity Narrative: Edema is controlled with GABRIELE hose Skin Rashes: no rashes Wound Narrative: stage 2 decubs at admission are nearly all healed Psych cooperative and affect normal Attitude: calm Activity / Motor Behavior: appropriate eye contact Assessment & Plan Assessment/Plan (1) Debility: PLAN: He is very motivated to get better and wants to do is much as possible independently. We will continue PT/OT/ST. If he is able to walk with a WW prior to DC he will be going home but, if he is non-ambulatory his will not be able to care for him. Will discuss again on Wednesday at TEAM rounds. Will recheck a CBC and a BMP on Wednesday. (2) Cerebrovascular accident (CVA) due to embolic occlusion of middle cerebral artery: PLAN: He was not on anticoagulation prior to recent stroke but, he has been started on Eliquis. Last 2 HGB's have been normal and there is no bleeding from the nose, mouth or anus. (3) Hemiparesis affecting right side as late effect of cerebrovascular accident (CVA): PLAN: He has weakness in the LE's BL from a remote fall resulting in a subluxation of C5 on C6 and cord damage with partial tetraplegia. The arms are quite strong R is weaker than the left by a little. The weakness in the legs is equal BL. Prior to the recent TIA the R was weaker than the left but, his tells me that his legs get week with UTI's and he does have a UTI now which is due to E. Coli and he is being treated with 10 days of Keflex. (4) Aphasia: PLAN: Both receptive and expressive. (5) Atrial fibrillation: PLAN: With history of pacemaker insertion for sick sinus syndrome. (6) Chronic anticoagulation: PLAN: Currently on Eliquis with no bleeding complications. (7) 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: (8) Prostatic hypertrophy: PLAN: Continue Proscar and Flomax. He is mildly orthostatic but asymptomatic. He was instructed to increase his fluid intake. Mucous membranes are consistently mildly dry. I suspect this may have contributed to the TIA he had while in rehab. d Charges/Coding Visit Charges Inpatient E&M: 24444 Subs Hosp L2
[2021-07-31] MEDS: Ferrous Sulfate 325 MG Tablet PO (13:27)
[2021-07-31 16:40] VITALS: BMI 34.2
[2021-07-31 20:01] VITALS: BP 128/68; PULSE 67; RESP 18; TEMP 36.6; O2SAT 95
[2021-07-31] MEDS: Bisacodyl 10 MG Suppository RC (20:32)
[2021-07-31] MEDS: Atorvastatin Calcium 40 MG Tablet PO (20:33)
[2021-07-31] MEDS: MELATONIN 3 MG TABLET PO (20:33)
[2021-07-31] MEDS: Baclofen 10 MG Tablet PO (20:34)
[2021-07-31] MEDS: Tamsulosin HCl 0.4 MG Capsule PO (20:34)
[2021-07-31] MEDS: Citalopram 40 MG TABLET PO (20:35)
--- NOTE | 2021-07-31 22:10 | NURSING ---
PT STRAIGHT CATHED FOR 250ML OF CLEAR YELLOW URINE NORMAL ODOR. PT TOLERATES PROCEDURE WELL.
[2021-08-01 06:00] VITALS: BP 119/73; BP 130/78; BP 138/88; PULSE 72; PULSE 73; PULSE 75
[2021-08-01] MEDS: Gabapentin 100 MG Capsule 200 MG PO ×3 (06:29→21:51)
[2021-08-01] MEDS: Nystatin Powder 15gm Bottle 1 APPLIC TOPICAL ×2 (06:29→21:53)
[2021-08-01] MEDS: Acetaminophen 500 MG Tablet 1000 MG PO ×3 (06:29→22:15)
[2021-08-01] MEDS: Cephalexin 500 MG Capsule PO ×3 (06:30→21:48)
[2021-08-01] MEDS: Menthol/Lanolin/Calamine/Znox 113 GM Tube 1 APPLIC TOPICAL ×3 (06:30→21:53)
[2021-08-01 07:35] VITALS: BP 118/63; PULSE 57; RESP 16; TEMP 36.3; O2SAT 95
[2021-08-01] MEDS: Potassium Chloride Oral Tablet 20 MEQ PO (07:48)
[2021-08-01] MEDS: Lisinopril 20 MG Tablet PO (07:48)
[2021-08-01] MEDS: Methenamine Hippurate 1 GM Tablet PO (07:48)
[2021-08-01] MEDS: APIXABAN 5 MG TABLET PO ×2 (07:48→21:48)
[2021-08-01] MEDS: Finasteride 5 MG Tablet PO (07:48)
[2021-08-01] MEDS: Senna Tablet 2 TABLET PO (07:48)
[2021-08-01] MEDS: Juven (unflavored) Packet 1 PACKET PO ×2 (07:49→17:23)
[2021-08-01] MEDS: Carvedilol 12.5 MG Tablet PO ×2 (07:49→21:47)
[2021-08-01] MEDS: NIFEdipine 30 MG Tablet PO (07:49)
[2021-08-01] MEDS: Ascorbic Acid 500 MG Tablet 1000 MG PO (07:49)
[2021-08-01 08:34] VITALS: BMI 34.2
[2021-08-01] MEDS: Ferrous Sulfate 325 MG Tablet PO (11:35)
[2021-08-01] MEDS: Ketoconazole Cream 1 APPLIC TOPICAL ×2 (11:35→22:15)
--- NOTE | 2021-08-01 14:15 | PN_ITS ---
Subjective Subjective Afebrile VSS-blood pressure is well controlled and within goal. Orthostatics are mildly positive but the patient is asymptomatic. Mucous membranes continued to be somewhat dry and he was encouraged to increase his fluid intake. Maintaining appropriate oxygen saturation on RA Oral intake is food intake is good but fluid intake is marginal. Discussed with nursing - no problems that need addressed. Rather than daily enemas he is getting a rectal suppository every 3rd day with good results. He has a neurogenic colon and is incontinent. We are checking post void residuals when he is incontinent of urine and if the residual is > 200 he is straight cath'd. Reviewed the PT/OT/ST notes - continues to make progress He was on the Nu- step for 120 minutes today and he was able to stand from the WC and then pivot to the Nu-steps with just min assist. He was able to stand for approximately 3 minutes today for hygiene after a bowel movement. Medication list reviewed. He is more verbal today and he is following my verbal instructions better than yesterday. I did not have to pantomime sticking my tongue out.......he did it just on a verbal command. He is very alert and cooperative. He is sleeping we ll at night and eating well. He is always pleasant and motivated. He is alert and makes good eye contact. He focuses on what people are saying to him and he seems to understand better today. The physical therapist also noted that he seemed to be in a better mood today. Mucous membranes are dry No jugular vein distention Lungs are clear to auscultation throughout with no tachypnea, no accessory muscle use. Abdomen is mildly distended and tympanic but nontender. Normal bowel sounds were heard. No calf pain, no significant peripheral edema, GABRIELE hose are in place and are controlling the peripheral edema secondary to venous insufficiency. Impressions 1. debility due to embolic L MCA stroke with R hemiparesis, expressive and receptive aphasia 2. AF - was not on an AC at the time of the stroke but is now on Eliquis 3. HTN - well controlled. Continue the current medications 4. BPH and neurogenic bladder - being straight cath'd if the PVR is > 200. 5. Neurogenic colon. suppository rather than SSE is effective in maintaining regular BM's. the ab is distended and tympanic but he has no complaints, BS's are normal and BM's are regular so no indications to treat at this time 6. E. Coli UTI - will continue Keflex for a total of 10 days. 7. CBC and BMP on Wednesday. TEAM meeting on Wednesday. Objective Data Objective Data Vital Signs: Vital Signs Temp Pulse Resp BP Pulse Ox 97.4 F L 57 L 16 118/63 95 08/01/21 07:35 08/01/21 07:35 08/01/21 07:35 08/01/21 07:35 08/01/21 07:35 Oxygen Delivery Method Room Air Weight: 234 lb 5.622 oz Body Mass Index (BMI) 34.2 Intake & Output: Intake and Output for Last 24 Hours 07/30/21 07/31/21 08/01/21 23:59 23:59 23:59 Intake Total 400 / 400 800 / 800 587 / 587 Output Total 800 / 800 850 / 850 842 / 842 Balance -400 / -400 -50 / -50 -255 / -255 Lab / Micro Data Result Diagrams: 07/26/21 09:15 07/26/21 09:15 Micro: Microbiology 07/25/21 14:45 Urine, Catheterized Urine Culture - Final Escherichia coli Charges/Coding Visit Charges Inpatient E&M: 66774 Subs Hosp L1
[2021-08-01 19:27] VITALS: BP 139/83; PULSE 69; RESP 16; TEMP 36.3; O2SAT 96
[2021-08-01] MEDS: Citalopram 40 MG TABLET PO (21:47)
[2021-08-01] MEDS: Tamsulosin HCl 0.4 MG Capsule PO (21:48)
[2021-08-01] MEDS: Baclofen 10 MG Tablet PO (21:48)
[2021-08-01] MEDS: Atorvastatin Calcium 40 MG Tablet PO (21:48)
[2021-08-01] MEDS: MELATONIN 3 MG TABLET PO (21:48)
[2021-08-02 03:55] VITALS: BMI 34.2
[2021-08-02] MEDS: Gabapentin 100 MG Capsule 200 MG PO ×3 (06:37→21:27)
[2021-08-02] MEDS: Acetaminophen 500 MG Tablet 1000 MG PO ×3 (06:37→21:37)
[2021-08-02] MEDS: Cephalexin 500 MG Capsule PO ×3 (06:37→21:29)
[2021-08-02] MEDS: Nystatin Powder 15gm Bottle 1 APPLIC TOPICAL ×2 (06:43→21:32)
[2021-08-02] MEDS: Menthol/Lanolin/Calamine/Znox 113 GM Tube 1 APPLIC TOPICAL ×3 (06:43→21:31)
[2021-08-02 08:00] VITALS: BP 120/60; PULSE 56; RESP 16; TEMP 36.4; O2SAT 95
[2021-08-02] MEDS: Ketoconazole Cream 1 APPLIC TOPICAL ×2 (08:15→21:37)
[2021-08-02] MEDS: Carvedilol 12.5 MG Tablet PO ×2 (08:16→21:29)
[2021-08-02] MEDS: Ascorbic Acid 500 MG Tablet 1000 MG PO (08:16)
[2021-08-02] MEDS: Potassium Chloride Oral Tablet 20 MEQ PO (08:16)
[2021-08-02] MEDS: Juven (unflavored) Packet 1 PACKET PO ×2 (08:16→16:58)
[2021-08-02] MEDS: APIXABAN 5 MG TABLET PO ×2 (08:17→21:28)
[2021-08-02] MEDS: Lisinopril 20 MG Tablet PO (08:17)
[2021-08-02] MEDS: Methenamine Hippurate 1 GM Tablet PO (08:18)
[2021-08-02] MEDS: Senna Tablet 2 TABLET PO (08:19)
[2021-08-02] MEDS: Finasteride 5 MG Tablet PO (08:20)
[2021-08-02] MEDS: NIFEdipine 30 MG Tablet PO (08:20)
[2021-08-02] MEDS: Ferrous Sulfate 325 MG Tablet PO (12:27)
[2021-08-02 13:41] VITALS: BMI 34.2
[2021-08-02] MEDS: Citalopram 40 MG TABLET PO (21:28)
[2021-08-02] MEDS: Baclofen 10 MG Tablet PO (21:29)
[2021-08-02] MEDS: Tamsulosin HCl 0.4 MG Capsule PO (21:30)
[2021-08-02] MEDS: Atorvastatin Calcium 40 MG Tablet PO (21:30)
[2021-08-02] MEDS: MELATONIN 3 MG TABLET PO (21:31)
[2021-08-02 21:45] VITALS: BP 122/65; PULSE 57
--- NOTE | 2021-08-02 21:50 | NURSING ---
Incontinent of a large amount of urine. Voided approximately 75 ml of urine in urinal. Bladder scan for [address] cath w/ 15 fr starr cath using sterile technique. Immediate return of 400 ml straw colored, clear urine. Pt tolerated well. Will continue to monitor.
[2021-08-03] MEDS: Gabapentin 100 MG Capsule 200 MG PO ×3 (05:55→21:40)
[2021-08-03] MEDS: Nystatin Powder 15gm Bottle 1 APPLIC TOPICAL ×2 (05:56→21:41)
[2021-08-03] MEDS: Cephalexin 500 MG Capsule PO ×3 (05:56→21:39)
[2021-08-03] MEDS: Acetaminophen 500 MG Tablet 1000 MG PO ×3 (05:56→21:42)
[2021-08-03] MEDS: Menthol/Lanolin/Calamine/Znox 113 GM Tube 1 APPLIC TOPICAL ×3 (05:57→21:37)
[2021-08-03] MEDS: Ketoconazole Cream 1 APPLIC TOPICAL ×2 (07:17→21:41)
[2021-08-03] MEDS: Ascorbic Acid 500 MG Tablet 1000 MG PO (07:17)
[2021-08-03] MEDS: Finasteride 5 MG Tablet PO (07:18)
[2021-08-03] MEDS: Methenamine Hippurate 1 GM Tablet PO (07:18)
[2021-08-03] MEDS: Carvedilol 12.5 MG Tablet PO ×2 (07:18→21:39)
[2021-08-03] MEDS: APIXABAN 5 MG TABLET PO ×2 (07:18→21:39)
[2021-08-03] MEDS: Senna Tablet 2 TABLET PO (07:18)
[2021-08-03] MEDS: Potassium Chloride Oral Tablet 20 MEQ PO (07:18)
[2021-08-03] MEDS: Lisinopril 20 MG Tablet PO (07:18)
[2021-08-03] MEDS: NIFEdipine 30 MG Tablet PO (07:18)
[2021-08-03] MEDS: Juven (unflavored) Packet 1 PACKET PO ×2 (07:19→16:40)
[2021-08-03 08:00] VITALS: BP 138/68; PULSE 61; RESP 16; TEMP 36.2; O2SAT 96
[2021-08-03] MEDS: Ferrous Sulfate 325 MG Tablet PO (12:44)
[2021-08-03 12:56] VITALS: BMI 34.2
[2021-08-03 21:25] VITALS: BP 104/64; PULSE 55; RESP 18; TEMP 36.2; O2SAT 96
[2021-08-03] MEDS: Citalopram 40 MG TABLET PO (21:38)
[2021-08-03] MEDS: Tamsulosin HCl 0.4 MG Capsule PO (21:39)
[2021-08-03] MEDS: MELATONIN 3 MG TABLET PO (21:40)
[2021-08-03] MEDS: Atorvastatin Calcium 40 MG Tablet PO (21:40)
[2021-08-03] MEDS: Baclofen 10 MG Tablet PO (21:40)
[2021-08-03] MEDS: Bisacodyl 10 MG Suppository RC (21:44)
[2021-08-04 03:01] VITALS: BMI 34.2
--- NOTE | 2021-08-04 04:23 | NURSING ---
REVIEWED AND AGREE WITH FUNCTIONAL ASSESSMENT AND HANDOFF CHARTING.
[2021-08-04 05:37] LABS: Hematocrit 38.1 % (40-54); Hemoglobin 12.6 g/dL (13.0-16.5); Mean Corp Hgb Conc 33.1 g/dL (32-36); Mean Corpuscular Hgb 30.1 pg (27.0-32.0); Mean Corpuscular Volume 90.9 fL (80-94); Platelet Count 172 K/mm3 (150-450); RBC Distribution Width CV 14.6 % (11.6-14.6); RBC Distribution Width SD 48.1 fl (35.1-43.9); Red Blood Count 4.19 M/mm3 (4.6-6.2); White Blood Count 8.1 K/mm3 (4.4-11.0)
[2021-08-04 05:57] LABS: Anion Gap 4 (5-15); BUN 40 mg/dL (7-18); BUN/Creat Ratio 38.1 RATIO (10-20); Chloride 112 mmol/L (98-107); Creatinine, Serum 1.05 mg/dL (0.70-1.30); EST Glomerular Filtration Rate 73 mL/min (>60); Est Glom Filt Rate - Afr Amer 89 mL/min (>60); Estimated Creatinine Clearance 60.79 ml/min; Glucose 93 mg/dL (74-106); Potassium 4.1 mmol/L (3.5-5.1); Sodium Level 143 mmol/L (136-145)
[2021-08-04] MEDS: Menthol/Lanolin/Calamine/Znox 113 GM Tube 1 APPLIC TOPICAL ×3 (06:39→21:07)
[2021-08-04] MEDS: Cephalexin 500 MG Capsule PO ×3 (06:39→21:06)
[2021-08-04] MEDS: Gabapentin 100 MG Capsule 200 MG PO ×3 (06:40→21:06)
[2021-08-04] MEDS: Nystatin Powder 15gm Bottle 1 APPLIC TOPICAL ×2 (06:40→21:07)
[2021-08-04] MEDS: Acetaminophen 500 MG Tablet 1000 MG PO ×3 (06:41→21:06)
[2021-08-04 07:24] VITALS: BP 130/79; PULSE 66; RESP 16; TEMP 36.3; O2SAT 95
[2021-08-04] MEDS: Ketoconazole Cream 1 APPLIC TOPICAL ×2 (07:37→21:07)
[2021-08-04] MEDS: Lisinopril 20 MG Tablet PO (07:38)
[2021-08-04] MEDS: Senna Tablet 2 TABLET PO (07:39)
[2021-08-04] MEDS: NIFEdipine 30 MG Tablet PO (07:39)
[2021-08-04] MEDS: APIXABAN 5 MG TABLET PO ×2 (07:39→21:06)
[2021-08-04] MEDS: Juven (unflavored) Packet 1 PACKET PO ×2 (07:39→16:38)
[2021-08-04] MEDS: Carvedilol 12.5 MG Tablet PO ×2 (07:39→21:06)
[2021-08-04] MEDS: Potassium Chloride Oral Tablet 20 MEQ PO (07:39)
[2021-08-04] MEDS: Finasteride 5 MG Tablet PO (07:39)
[2021-08-04] MEDS: Ascorbic Acid 500 MG Tablet 1000 MG PO (07:39)
[2021-08-04] MEDS: Methenamine Hippurate 1 GM Tablet PO (08:01)
--- NOTE | 2021-08-04 12:20 | PCM.PN.BLA ---
Progress Note Keflex - 20 of 30 doses given Ignacio was seen on TEAM rounds today. His son Bulmaro and his Nuzhat were present in the room. Afebrile VSS Maintaining appropriate oxygen saturation on RA Oral intake food intake is good but fluid intake is marginal. Discussed with nursing - He c/o abdominal pain yesterday and received an enema and then had a very large explosive stool and passed a lot of gas. His PVR prior to the enema was 500 and today it is 0. Reviewed the PT/OT/ST notes - OT reports that he had 2 episodes of lightheadedness when she was working with him. Medication list reviewed. All lab from today was personally reviewed. The white blood cell count is normal at 8.1. Hemoglobin is stable at 12.6, down from 13.2 on 07/26/2021. Sodium is 143 and the potassium is 4.1. BUN is increased at 40 with a creatinine of 1.05. Nuzhat and Bulmaro tell me that Ignacio is used to having a BM daily and Nuzhat tells me she gives him an enema every day and he has a large OP. Bulmaro reinforces that he had been c/o abd distension and pain prior to the enema yesterday. ROS not really obtainable due to expressive aphasia. ST is going to work with him and get a speech board.......he comprehension is much better when he is reading the words rather than listening to speech. He does not appear to be in any pain. He is sleeping well. Physical Exam Const alert and no apparent distress General Appearance: cooperative, comfortable and well kempt HEENT HEENT Narrative: MM are very dry and the BUN/CREAT ratio is 38 and has been gradually increasing. Head and Scalp: normocephalic Resp normal respiratory effort, normal air movement, no retractions, no use of accessory muscles and clear to auscultation bilaterally Cardio regular rate, regular rhythm and no gallops GI normal to inspection, nondistended, normoactive bowel sounds, soft to palpation and non-tender GI Narrative: No significant tympany today and the abd is not distended. No guarding with palpation. Extremity no calf tenderness Extremity Narrative: no significant edema of the LE's Skin Rashes: no rashes Psych Psych Narrative: He is very motivated to get better and go home. Affect is upbeat and he is sleeping well and has a good appetite. No tears. Depression seems to be well managed. Assessment & Plan Assessment/Plan (1) Debility: PLAN: Making good progress in therapy.......able to stand and pivot since Wednesday. Speech is improving. ST to give him a speech device to help him be able to express his needs. Does better with written language than spoken language. Will continue therapy. Continue to observe (2) Cerebrovascular accident (CVA) due to embolic occlusion of middle cerebral artery: PLAN: Was not on anticoagulation at the time of the stroke. He is now on Eliquis and has no THOMAS. (3) Hemiparesis affecting right side as late effect of cerebrovascular accident (CVA): (4) Aphasia: (5) Catheter-associated urinary tract infection: PLAN: due to E. Coli. He is going to complete a 10 day course of Keflex. Continue to straight cath when the residual after urinating is > 200. (6) Neurogenic bladder: (7) Atrial fibrillation: PLAN: Rhythm is regular since admission and I suspect he is paced. (8) Chronic anticoagulation: (9) Normochromic normocytic anemia: PLAN: Check a Hemoccult stool since he is now on chronic anticoagulation. (10) 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: (11) Dehydration: PLAN: The last time he was dehydrated he had a TIA with L side hemiparesis. Will hydrate with IV fluids today. Have nursing offer him water frequently. Recheck a [facility] and an Wednesday. (12) Neurogenic bowel: PLAN: DC the suppositories and reinstitute daily enemas. This is what he is used to and seems to work well. Visit Charges Inpatient E&M: 14063 Subs Hosp L2
[2021-08-04] MEDS: Ferrous Sulfate 325 MG Tablet PO (12:43)
--- NOTE | 2021-08-04 14:13 | CASEMGMT ---
Social Work IDT met with patient, and son for Team meeting. Discussed patient's progress in PT/OT/ST and nursing. Pt making progress. Pt to DC 08/17. Son to begin contacting [employer] for hire. Will ReTeam next week and finalize DC plans and needs. Mayela Cole ,LIYAH PAULINO W
[2021-08-04] MEDS: 0.9% Normal Saline 1,000 ML 500 ML IV (15:33)
[2021-08-04 16:00] VITALS: BMI 34.2
[2021-08-04] MEDS: 0.9% Normal Saline 1,000 ML 80 ML IV (17:36)
[2021-08-04 19:35] VITALS: BP 126/71; PULSE 58; RESP 16; TEMP 36.1; O2SAT 96
[2021-08-04] MEDS: Tamsulosin HCl 0.4 MG Capsule PO (21:06)
[2021-08-04] MEDS: MELATONIN 3 MG TABLET PO (21:06)
[2021-08-04] MEDS: Atorvastatin Calcium 40 MG Tablet PO (21:06)
[2021-08-04] MEDS: Citalopram 40 MG TABLET PO (21:06)
[2021-08-04] MEDS: Baclofen 10 MG Tablet PO (21:06)
[2021-08-05 00:24] VITALS: BMI 34.2
--- NOTE | 2021-08-05 02:25 | NURSING ---
Reviewed and agree with HOGSHEAD STOCK CLERK documentation and assessment charting.
[2021-08-05] MEDS: Gabapentin 100 MG Capsule 200 MG PO ×3 (05:37→21:53)
[2021-08-05] MEDS: Cephalexin 500 MG Capsule PO ×3 (05:38→21:48)
[2021-08-05] MEDS: Menthol/Lanolin/Calamine/Znox 113 GM Tube 1 APPLIC TOPICAL ×3 (05:38→21:45)
[2021-08-05] MEDS: Nystatin Powder 15gm Bottle 1 APPLIC TOPICAL ×2 (05:38→21:48)
[2021-08-05 06:00] VITALS: BP 101/36; BP 125/69; BP 137/77; PULSE 63; PULSE 70; PULSE 73
[2021-08-05] MEDS: 0.9% Normal Saline 1,000 ML 80 ML IV (06:18)
[2021-08-05] MEDS: Acetaminophen 500 MG Tablet 1000 MG PO ×3 (06:36→21:53)
[2021-08-05 07:43] VITALS: BP 135/75; PULSE 60; RESP 16; TEMP 36.4; O2SAT 95
[2021-08-05] MEDS: Juven (unflavored) Packet 1 PACKET PO ×2 (07:49→16:46)
[2021-08-05] MEDS: Ketoconazole Cream 1 APPLIC TOPICAL ×2 (07:49→21:49)
[2021-08-05] MEDS: Carvedilol 12.5 MG Tablet PO ×2 (07:52→21:46)
[2021-08-05] MEDS: Finasteride 5 MG Tablet PO (07:52)
[2021-08-05] MEDS: Ascorbic Acid 500 MG Tablet 1000 MG PO (07:52)
[2021-08-05] MEDS: NIFEdipine 30 MG Tablet PO (07:52)
[2021-08-05] MEDS: Potassium Chloride Oral Tablet 20 MEQ PO (07:52)
[2021-08-05] MEDS: Lisinopril 20 MG Tablet PO (07:53)
[2021-08-05] MEDS: APIXABAN 5 MG TABLET PO ×2 (07:53→21:46)
[2021-08-05] MEDS: Methenamine Hippurate 1 GM Tablet PO (07:53)
[2021-08-05] MEDS: Senna Tablet 2 TABLET PO (07:55)
[2021-08-05] MEDS: Ferrous Sulfate 325 MG Tablet PO (13:30)
[2021-08-05 14:25] VITALS: BMI 34.2
--- NOTE | 2021-08-05 15:37 | PCM.PN.BLA ---
Progress Note afebrile VSS Maintaining appropriate oxygen saturation on RA Oral intake is poor for fluids. He revealed to me today that he does not drink a lot because it makes him pee. With the aid of the ST he was able to understand that when he gets dehydrated the risk for TIA/stroke increases. He is agreeable to drinking 1.5 water pitchers a day to keep himself hydrated. He was upset because he thought the IVF's meant he was not doing well. Discussed with nursing - no problems that need addressed Reviewed the PT/OT/ST notes. He continues to progress and is working hard and doing everything that is asked of him. Medication list reviewed. Physical Exam Const alert and no apparent distress Constitutional Narrative: Sitting in the recliner at the bedside working with ST when I entered the room. General Appearance: cooperative and comfortable HEENT HEENT Narrative: Mucous membranes are still somewhat dry. Neck no JVD Resp normal respiratory effort and clear to auscultation bilaterally Cardio regular rate, regular rhythm and no gallops GI GI Narrative: Mildly distended and tympanic. Nl BS's. No guarding with palpation. Soft Extremity no calf tenderness and no pedal edema Skin Rashes: no rashes Psych Psych Narrative: His is concerned that he seems depressed.......he was tearful a little recently after the IV fluids were started. He is motivated and does everything that is asked of him. He is sleeping well and his appetite is good. He makes good eye contact. After we talked today about why he has to keep hydrated and gave him a goal of 1500 cc's a day so he would not need IV fluids he seemed enthused about being able to control when he would need IV fluids. Appearance: grossly normal, appropriate and well kempt Activity / Motor Behavior: appropriate eye contact Assessment & Plan Assessment/Plan (1) Cerebrovascular accident (CVA) due to embolic occlusion of middle cerebral artery: (2) Hemiparesis affecting right side as late effect of cerebrovascular accident (CVA): (3) Catheter-associated urinary tract infection: (4) Dehydration: (5) Atrial fibrillation: (6) Chronic anticoagulation: (7) Neurogenic bladder: (8) Neurogenic bowel: (9) Aphasia: (10) Debility: PLAN: 1. Continue therapy. He is making excellent progress and I suspect we will be able to DC him home after a couple more weeks of rehab. 2. DC the IVF's after the current bag is infused. Pt agrees to drink at least 1500 ml a day. Will continue to monitor the I&O's 3. Continue Eliquis to prevent recurrent embolic CVA's due to AF. He has been primarily paced since arriving in rehab......rhythm has been regular every time I check him. 4. Lab in the AM. 5. Have not been able to do hemocult due to mix of stool and enema fluid. Will do a rectal and obtain stool the next time I check the progress on healing the decubitus ulcers. Visit Charges Inpatient E&M: 44393 Subs Hosp L2
[2021-08-05 19:12] VITALS: BP 151/86; PULSE 64; RESP 17; TEMP 36.5; O2SAT 96
[2021-08-05 21:44] VITALS: BMI 34.2
[2021-08-05] MEDS: Citalopram 40 MG TABLET PO (21:46)
[2021-08-05] MEDS: Tamsulosin HCl 0.4 MG Capsule PO (21:47)
[2021-08-05] MEDS: Baclofen 10 MG Tablet PO (21:48)
[2021-08-05] MEDS: Atorvastatin Calcium 40 MG Tablet PO (21:48)
[2021-08-05] MEDS: MELATONIN 3 MG TABLET PO (21:48)
--- NOTE | 2021-08-05 21:59 | NURSING ---
Addendum entered by Paris Ivory 08/06/21 07:12: BM WAS LIQUID DIARRHEA WITH AN EXPLOSION OF SOFT, NON FORMED BM. Original Note: SS enema given with large, soft bm results. Pt unable to hold enema, immediate results. Pt tolerated well.
[2021-08-05 22:00] VITALS: PULSE 68; RESP 16; O2SAT 96
[2021-08-06 05:42] LABS: Hematocrit 36.1 % (40-54)
[2021-08-06 06:00] VITALS: BP 114/64; BP 123/67; BP 88/40; PULSE 60; PULSE 71
[2021-08-06 06:06] LABS: Anion Gap 7 (5-15); BUN 27 mg/dL (7-18); BUN/Creat Ratio 32.8 RATIO (10-20); Calcium,Total 8.6 mg/dL (8.5-10.1); Chloride 109 mmol/L (98-107); Creatinine, Serum 0.82 mg/dL (0.70-1.30); EST Glomerular Filtration Rate 97 mL/min (>60); Est Glom Filt Rate - Afr Amer 117 mL/min (>60); Estimated Creatinine Clearance 77.84 ml/min; Glucose 93 mg/dL (74-106); Potassium 3.6 mmol/L (3.5-5.1); Sodium Level 139 mmol/L (136-145)
[2021-08-06 07:37] VITALS: BP 136/72; PULSE 62; RESP 18; TEMP 36.4; O2SAT 96
[2021-08-06] MEDS: Carvedilol 12.5 MG Tablet PO ×2 (07:45→21:24)
[2021-08-06] MEDS: Finasteride 5 MG Tablet PO (07:45)
[2021-08-06] MEDS: Senna Tablet 2 TABLET PO (07:45)
[2021-08-06] MEDS: Ascorbic Acid 500 MG Tablet 1000 MG PO (07:45)
[2021-08-06] MEDS: Cephalexin 500 MG Capsule PO ×3 (07:45→21:24)
[2021-08-06] MEDS: NIFEdipine 30 MG Tablet PO (07:45)
[2021-08-06] MEDS: APIXABAN 5 MG TABLET PO ×2 (07:45→21:24)
[2021-08-06] MEDS: Methenamine Hippurate 1 GM Tablet PO (07:45)
[2021-08-06] MEDS: Potassium Chloride Oral Tablet 20 MEQ PO (07:45)
[2021-08-06] MEDS: Lisinopril 20 MG Tablet PO (07:45)
[2021-08-06] MEDS: Juven (unflavored) Packet 1 PACKET PO ×2 (07:46→17:09)
[2021-08-06] MEDS: Acetaminophen 500 MG Tablet 1000 MG PO ×3 (07:47→21:28)
[2021-08-06] MEDS: Gabapentin 100 MG Capsule 200 MG PO ×3 (07:47→21:23)
[2021-08-06] MEDS: Menthol/Lanolin/Calamine/Znox 113 GM Tube 1 APPLIC TOPICAL ×3 (07:56→21:24)
[2021-08-06] MEDS: Nystatin Powder 15gm Bottle 1 APPLIC TOPICAL ×2 (07:56→21:24)
[2021-08-06] MEDS: Ketoconazole Cream 1 APPLIC TOPICAL ×2 (07:57→21:24)
--- NOTE | 2021-08-06 11:34 | PN_ITS ---
Subjective Subjective Afebrile VSS - He is orthostatic today. They blood pressure dropped from 123/67 lying down to 88/40 standing. The heart rate went from 62-71. Maintaining appropriate oxygen saturation on RA Oral intake is being monitored. So far today he is taken 460 cc. The goal is at least 1500 cc daily. Discussed with nursing - no problems that need addressed Reviewed the PT/OT/ST notes. he wlked 20' X1 and 15' X1 today with a WW. Did the Nustep for 15 minutes. Medication list reviewed. All lab was personally reviewed. The hemoglobin dropped from 12.6 on - 12.0 today. This is more than likely secondary to IV fluids and better hydration. Sodium is 139, down from 143 on 08/04/2021. Serum bicarb is within n ormal limits and the potassium is 3.6. BUN is down to 27 from 48 on 08/04/2021 and his creatinine is back to baseline at 0.82. Ignacio denies lightheadedness or dizziness today. He also denies SOB, CP, THOMAS. Denies abd pain. He did not want to get out the chair to let me examine his buttocks. He also declined to get out of the chair and into bed for nursing yesterday. He is turned side to side anytime he does get in bed. He is incontinent of large amounts of urine and his bottom is wet until the depends is changed. He is also sweaty and the diaper does not help. The stage II decubitus ulcers on his backside that he developed at [facility] are being treated with Calmoseptine every time he is changed. Nursing tells me they look better than at admission. Objective Data Objective Data Vital Signs: Vital Signs Temp Pulse Resp BP Pulse Ox 97.5 F L 62 18 136/72 H 96 08/06/21 07:37 08/06/21 07:37 08/06/21 07:37 08/06/21 07:37 08/06/21 07:37 Oxygen Delivery Method Room Air Weight: 234 lb 5.622 oz Body Mass Index (BMI) 34.2 Intake & Output: Intake and Output for Last 24 Hours 08/04/21 08/05/21 08/06/21 23:59 23:59 23:59 Intake Total 1340 / 1340 2150 / 2150 460 / 460 Output Total 1029 / 1029 315 / 315 Balance 311 / 311 1835 / 1835 460 / 460 Lab / Micro Data Result Diagrams: 08/06/21 05:35 08/06/21 05:35 Labs: Laboratory Results - last 24 hr 08/06/21 05:35: Hgb 12.0 L, Hct 36.1 L 08/06/21 05:35: Sodium 139, Potassium 3.6, Chloride 109 H, Carbon Dioxide 23.0, Anion Gap 7, BUN 27 H, Creatinine 0.82, Estim Creat Clear Calc 77.84, Est GFR (MDRD) Af Amer 117, Est GFR (MDRD) Non-Af 97, BUN/Creatinine Ratio 32.8 H, Glucose 93, Calcium 8.6 Micro: Microbiology 07/25/21 14:45 Urine, Catheterized Urine Culture - Final Escherichia coli Physical Exam Const alert and no apparent distress General Appearance: cooperative Resp normal respiratory effort, normal air movement and clear to auscultation bilaterally Cardio regular rate, regular rhythm, S1 normal heart sound, S2 normal heart sound and no gallops GI soft to palpation and non-tender GI Narrative: mildly distended and tympanic.......no guarding with palpation. Extremity no calf tenderness and no pedal edema Assessment & Plan Assessment/Plan (1) Debility: (2) Cerebrovascular accident (CVA) due to embolic occlusion of right middle cerebral artery: (3) Hemiparesis affecting right side as late effect of cerebrovascular accident (CVA): (4) Catheter-associated urinary tract infection: (5) Chronic anticoagulation: (6) Orthostatic hypotension: (7) Decubitus ulcer, stage II: PLAN: 1, Hydration is better but still having asymptomatic orthostasis......but this could be due to Proscar and Flomax. He denies lightheadedness. He is focusing on getting his water requirements in for the day. 2. The decubitus ulcers are better but, not healed. There are still openings in the skin. He is incontinent of urine frequently and wet. He will not comply with getting in bed to relieve pressure. We borrowed a low air loss seat cushion from [facility] to use when he is sitting in the chair. Will insert a Mejía catheter to keep him dry and then we will be able to use a Mepilex also. 3. Continue therapy.......hopefully will be able to DC him home. 4. continue to encourage increased fluid intake and continue to monitor the I&O's closely. Charges/Coding Visit Charges Inpatient E&M: 86376 Subs Hosp L2
[2021-08-06] MEDS: Ferrous Sulfate 325 MG Tablet PO (11:56)
[2021-08-06 17:00] VITALS: BMI 34.2
[2021-08-06 19:00] VITALS: BP 126/75; PULSE 60; RESP 18; TEMP 36.8; O2SAT 96
[2021-08-06] MEDS: Tamsulosin HCl 0.4 MG Capsule PO (21:24)
[2021-08-06] MEDS: MELATONIN 3 MG TABLET PO (21:24)
[2021-08-06] MEDS: Atorvastatin Calcium 40 MG Tablet PO (21:24)
[2021-08-06] MEDS: Citalopram 40 MG TABLET PO (21:24)
[2021-08-06] MEDS: Baclofen 10 MG Tablet PO (21:24)
--- NOTE | 2021-08-06 21:41 | NURSING ---
soap suds enema given at this time, pt able to hold 1000cc. immediate return of large liquid BM in bedpan at this time hygiene provided
[2021-08-06 23:17] VITALS: BMI 34.2
[2021-08-07] MEDS: Cephalexin 500 MG Capsule PO ×2 (04:58→13:04)
[2021-08-07] MEDS: Gabapentin 100 MG Capsule 200 MG PO ×3 (04:58→21:55)
[2021-08-07] MEDS: Acetaminophen 500 MG Tablet 1000 MG PO ×3 (04:58→21:54)
[2021-08-07] MEDS: Menthol/Lanolin/Calamine/Znox 113 GM Tube 1 APPLIC TOPICAL ×3 (04:59→21:56)
[2021-08-07] MEDS: Nystatin Powder 15gm Bottle 1 APPLIC TOPICAL ×2 (04:59→21:55)
[2021-08-07 07:31] VITALS: BP 134/76; PULSE 57; RESP 18; TEMP 36.4; O2SAT 96
[2021-08-07] MEDS: Ketoconazole Cream 1 APPLIC TOPICAL ×2 (07:38→21:54)
[2021-08-07] MEDS: Finasteride 5 MG Tablet PO (07:39)
[2021-08-07] MEDS: Lisinopril 20 MG Tablet PO (07:39)
[2021-08-07] MEDS: Juven (unflavored) Packet 1 PACKET PO ×2 (07:39→16:12)
[2021-08-07] MEDS: Ascorbic Acid 500 MG Tablet 1000 MG PO (07:40)
[2021-08-07] MEDS: Methenamine Hippurate 1 GM Tablet PO (07:40)
[2021-08-07] MEDS: Senna Tablet 2 TABLET PO (07:40)
[2021-08-07] MEDS: NIFEdipine 30 MG Tablet PO (07:40)
[2021-08-07] MEDS: APIXABAN 5 MG TABLET PO ×2 (07:40→21:56)
[2021-08-07] MEDS: Carvedilol 12.5 MG Tablet PO ×2 (07:40→21:56)
[2021-08-07] MEDS: Potassium Chloride Oral Tablet 20 MEQ PO (07:40)
[2021-08-07] MEDS: 0.9% Saline Lock 10 ML Syringe IV ×2 (10:21→22:42)
[2021-08-07] MEDS: Ferrous Sulfate 325 MG Tablet PO (13:00)
[2021-08-07 14:28] VITALS: BMI 34.2
--- NOTE | 2021-08-07 16:54 | CASEMGMT ---
Social Work Son requesting to speak with this worker about SNF placement. Met with son. Son requesting TCU referral for short term rehab. Agreed to make referral. Explained Medicare benefits for SNF stay. Son expressed understanding and appreciative for assistance. Referral made to TCU - pt is accepted. Updated son and present in room with pt. Plan: DC to TCU 08/17, skilled Mayela Cole, [employer]
[2021-08-07 19:39] VITALS: BP 144/72; PULSE 62; RESP 17; TEMP 36.6; O2SAT 96
[2021-08-07] MEDS: MELATONIN 3 MG TABLET PO (21:55)
[2021-08-07] MEDS: Tamsulosin HCl 0.4 MG Capsule PO (21:56)
[2021-08-07] MEDS: Baclofen 10 MG Tablet PO (21:56)
[2021-08-07] MEDS: Citalopram 40 MG TABLET PO (21:56)
[2021-08-07] MEDS: Atorvastatin Calcium 40 MG Tablet PO (21:56)
[2021-08-08 05:00] VITALS: BMI 34.2
[2021-08-08] MEDS: Gabapentin 100 MG Capsule 200 MG PO ×3 (05:41→21:47)
[2021-08-08] MEDS: Acetaminophen 500 MG Tablet 1000 MG PO ×3 (05:42→21:42)
[2021-08-08] MEDS: Nystatin Powder 15gm Bottle 1 APPLIC TOPICAL ×2 (05:42→21:44)
[2021-08-08] MEDS: Menthol/Lanolin/Calamine/Znox 113 GM Tube 1 APPLIC TOPICAL ×3 (05:42→21:45)
[2021-08-08] MEDS: Potassium Chloride Oral Tablet 20 MEQ PO (07:49)
[2021-08-08] MEDS: Juven (unflavored) Packet 1 PACKET PO (07:49)
[2021-08-08] MEDS: Ascorbic Acid 500 MG Tablet 1000 MG PO (07:50)
[2021-08-08] MEDS: APIXABAN 5 MG TABLET PO ×2 (07:51→21:44)
[2021-08-08] MEDS: Carvedilol 12.5 MG Tablet PO ×2 (07:51→21:44)
[2021-08-08] MEDS: Methenamine Hippurate 1 GM Tablet PO (07:51)
[2021-08-08] MEDS: Finasteride 5 MG Tablet PO (07:52)
[2021-08-08] MEDS: NIFEdipine 30 MG Tablet PO (07:52)
[2021-08-08] MEDS: Ketoconazole Cream 1 APPLIC TOPICAL ×2 (07:52→21:43)
[2021-08-08] MEDS: Senna Tablet 2 TABLET PO (07:53)
[2021-08-08] MEDS: Lisinopril 20 MG Tablet PO (07:53)
[2021-08-08 08:24] VITALS: BP 133/64; PULSE 54; RESP 16; TEMP 36.3; O2SAT 94
--- NOTE | 2021-08-08 12:23 | PCM.PROGNOTE ---
Subjective Subjective Afebrile VSS Maintaining appropriate oxygen saturation on RA Oral intake is better. He was able to take 1480 p.o. yesterday. Discussed with nursing - no problems that need addressed Reviewed the PT/OT/ST notes - Continues to make daily progress in therapy. He works very hard and does every thing that is asked of him. Medication list reviewed. Denies CP, SOB, lightheadedness, dysuria, calf pain, bleeding from the gums/nose/anus, cephalgia, N/V/ABD pain. No complaints today. He is sitting in the recliner by the window and was able to ask me to put the blind up verbally. Objective Data Objective Data Vital Signs: Vital Signs Temp Pulse Resp BP Pulse Ox 97.3 F L 54 L 16 133/64 H 94 08/08/21 08:24 08/08/21 08:24 08/08/21 08:24 08/08/21 08:24 08/08/21 08:24 Oxygen Delivery Method Room Air Weight: 241 lb 13.553 oz Body Mass Index (BMI) 34.2 Intake & Output: Intake and Output for Last 24 Hours 08/06/21 08/07/21 08/08/21 23:59 23:59 23:59 Intake Total 1180 / 1180 1480 / 1480 440 / 440 Output Total 1350 / 1350 2200 / 2200 800 / 800 Balance -170 / -170 -720 / -720 -360 / -360 Lab / Micro Data Result Diagrams: 08/11/21 05:56 08/11/21 05:56 Micro: Microbiology 07/25/21 14:45 Urine, Catheterized Urine Culture - Final Escherichia coli Physical Exam Const alert and no apparent distress General Appearance: cooperative and comfortable Resp normal respiratory effort and clear to auscultation bilaterally Cardio no gallops Cardio Narrative: regular today......likely paced GI GI Narrative: His Abd is mildly distended and tympanic. No pain with palpation. Decreased BS's. No guarding with palpation. no CVA tenderness Narrative: Bladder is not distended, Mejía is in place. Extremity no calf tenderness and no pedal edema Skin Rashes: no rashes Assessment & Plan Assessment/Plan (1) Cerebrovascular accident (CVA) due to embolic occlusion of middle cerebral artery: (2) Hemiparesis affecting right side as late effect of cerebrovascular accident (CVA): (3) Left hemiparesis: (4) Aphasia: (5) Atrial fibrillation: (6) Chronic anticoagulation: (7) Heme + stool: (8) Normochromic normocytic anemia: (9) 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: (10) Neurogenic bladder: (11) Neurogenic bowel: PLAN: 1. Doing very well with therapy. May need to go to an SNF for additional therapy prior to being strong enough to go home with his . she has been helping him dress his lower body and assist with bathing but, she can not help him get out of a chair to stand. Will continue with therapy to get him stronger. 2. He is doing a better job maintaining a good oral intake since we talked earlier in the week about the importance of a good intake to keep good blood flow to the brain. 3. HGB is stable - Will check again prior to DC. No bleeding from the nose or mouth and no large bruises or petechiae. Continue Eliquis. 4. Mejía was inserted for I&O AND to allow the decubitus ulcers on his backside to heal since he is incontinent and can not even tell you when he is wet. 5. Continue with daily enemas.....much better results than the suppositories. Does not get rid of the gas when we use the suppositories like his does with the enema. Charges/Coding Visit Charges Inpatient E&M: 95095 Subs Hosp L2
[2021-08-08] MEDS: Ferrous Sulfate 325 MG Tablet PO (13:17)
[2021-08-08 15:29] VITALS: BMI 34.2
[2021-08-08 19:20] VITALS: BP 127/71; PULSE 64; RESP 16; TEMP 36.6; O2SAT 97
[2021-08-08 21:31] VITALS: BMI 34.2
[2021-08-08] MEDS: Baclofen 10 MG Tablet PO (21:44)
[2021-08-08] MEDS: MELATONIN 3 MG TABLET PO (21:44)
[2021-08-08] MEDS: Citalopram 40 MG TABLET PO (21:44)
[2021-08-08] MEDS: Tamsulosin HCl 0.4 MG Capsule PO (21:44)
[2021-08-08] MEDS: Atorvastatin Calcium 40 MG Tablet PO (21:44)
[2021-08-08 22:00] VITALS: PULSE 63; RESP 16; O2SAT 95
[2021-08-09] MEDS: Acetaminophen 500 MG Tablet 1000 MG PO ×3 (06:16→21:10)
[2021-08-09] MEDS: Gabapentin 100 MG Capsule 200 MG PO ×3 (06:16→21:09)
[2021-08-09] MEDS: Nystatin Powder 15gm Bottle 1 APPLIC TOPICAL ×2 (06:17→21:09)
[2021-08-09] MEDS: Menthol/Lanolin/Calamine/Znox 113 GM Tube 1 APPLIC TOPICAL ×3 (06:17→21:08)
[2021-08-09 07:58] VITALS: BP 134/71; PULSE 66; RESP 16; TEMP 36.6; O2SAT 92
[2021-08-09] MEDS: Potassium Chloride Oral Tablet 20 MEQ PO (08:48)
[2021-08-09] MEDS: Methenamine Hippurate 1 GM Tablet PO (08:48)
[2021-08-09] MEDS: APIXABAN 5 MG TABLET PO ×2 (08:48→21:09)
[2021-08-09] MEDS: Carvedilol 12.5 MG Tablet PO ×2 (08:48→21:09)
[2021-08-09] MEDS: Juven (unflavored) Packet 1 PACKET PO ×2 (08:49→16:54)
[2021-08-09] MEDS: Senna Tablet 2 TABLET PO (08:49)
[2021-08-09] MEDS: NIFEdipine 30 MG Tablet PO (08:49)
[2021-08-09] MEDS: Finasteride 5 MG Tablet PO (08:49)
[2021-08-09] MEDS: Lisinopril 20 MG Tablet PO (08:49)
[2021-08-09] MEDS: Ketoconazole Cream 1 APPLIC TOPICAL ×2 (12:48→21:09)
[2021-08-09] MEDS: Ascorbic Acid 500 MG Tablet 1000 MG PO (12:48)
[2021-08-09] MEDS: Ferrous Sulfate 325 MG Tablet PO (12:48)
[2021-08-09 14:51] VITALS: BMI 34.2
[2021-08-09 18:57] VITALS: BP 143/61; PULSE 63; RESP 18; TEMP 36.6; O2SAT 95
[2021-08-09] MEDS: MELATONIN 3 MG TABLET PO (21:09)
[2021-08-09] MEDS: Baclofen 10 MG Tablet PO (21:09)
[2021-08-09] MEDS: Atorvastatin Calcium 40 MG Tablet PO (21:09)
[2021-08-09] MEDS: Citalopram 40 MG TABLET PO (21:09)
[2021-08-09] MEDS: Tamsulosin HCl 0.4 MG Capsule PO (21:09)
[2021-08-09 21:47] VITALS: BMI 34.2
[2021-08-09 22:00] VITALS: PULSE 72; RESP 16; O2SAT 96
[2021-08-10] MEDS: Acetaminophen 500 MG Tablet 1000 MG PO ×3 (06:29→20:26)
[2021-08-10] MEDS: Gabapentin 100 MG Capsule 200 MG PO ×3 (06:29→20:27)
[2021-08-10] MEDS: Nystatin Powder 15gm Bottle 1 APPLIC TOPICAL ×2 (06:30→20:27)
[2021-08-10] MEDS: Menthol/Lanolin/Calamine/Znox 113 GM Tube 1 APPLIC TOPICAL ×3 (06:30→20:28)
[2021-08-10 07:21] VITALS: BP 131/76; PULSE 58; RESP 16; TEMP 36.5; O2SAT 97
[2021-08-10] MEDS: Senna Tablet 2 TABLET PO (07:51)
[2021-08-10] MEDS: Carvedilol 12.5 MG Tablet PO ×2 (07:51→20:28)
[2021-08-10] MEDS: Methenamine Hippurate 1 GM Tablet PO (07:51)
[2021-08-10] MEDS: NIFEdipine 30 MG Tablet PO (07:51)
[2021-08-10] MEDS: Lisinopril 20 MG Tablet PO (07:51)
[2021-08-10] MEDS: Juven (unflavored) Packet 1 PACKET PO ×2 (07:51→16:12)
[2021-08-10] MEDS: Ketoconazole Cream 1 APPLIC TOPICAL ×2 (07:52→20:27)
[2021-08-10] MEDS: Potassium Chloride Oral Tablet 20 MEQ PO (07:52)
[2021-08-10] MEDS: APIXABAN 5 MG TABLET PO ×2 (07:52→20:28)
[2021-08-10] MEDS: Finasteride 5 MG Tablet PO (07:53)
[2021-08-10 09:31] VITALS: BMI 34.2
--- NOTE | 2021-08-10 10:52 | PCM.PN.BLA ---
Progress Note Afebrile VSS-blood pressure is well controlled Maintaining appropriate oxygen saturation on RA Oral intake is better since he is now aware he has to drink at least 1200 cc of fluid daily. His oral intake yesterday was 1380. Output exceeds the input every day. Weight is up 7 pounds from 08/04 - 08/08. He received IV fluids during that time. Discussed with nursing - no problems that need addressed Reviewed the PT/OT/ST notes Medication list reviewed. Stool is heme +. He is on Eliquis 5 mg BID. No ASA and no Plavix. Ignacio denies chest pain, shortness of breath, lightheadedness, abdominal pain, nausea/vomiting, flank pain, calf pain. Physical Exam Const Constitutional Narrative: Still with significant expressive aphasia and receptive aphasia but, he is improving. D/W ST. They are working with him using a dry erase board because he seems to understand written communication better than spoken. Resp normal respiratory effort, normal air movement and clear to auscultation bilaterally Resp Narrative: not tachypneic and no labored breathing with therapy Cardio regular rate, regular rhythm and no gallops GI GI Narrative: mildly distended and tympanic......this is chronic since the neck injury and neurogenic colon developed Extremity no calf tenderness and no pedal edema Extremity Narrative: DAXA wraps are in place Skin Skin Narrative: the decubs on his backside are healing and there is only 1 small opening and the other area are now stage I Rashes: no rashes Assessment & Plan Assessment/Plan (1) Debility: (2) Cerebrovascular accident (CVA) due to embolic occlusion of middle cerebral artery: (3) Atrial fibrillation: (4) Iron deficiency anemia: (5) Chronic anticoagulation: (6) Heme + stool: (7) TIA (transient ischemic attack): (8) Decubitus ulcer, stage II: PLAN: 1. HH and a BMP today 2. Since the Mejía was placed he has had much better urine OP....post obstructive diuresis? 3. Currently stable and making progress - will continue therapy.....TCU at [place]? 4. I again emphasized the importance of staying well hydrated to prevent further TIA's/strokes. Visit Charges Inpatient E&M: 65243 Subs Hosp L1
[2021-08-10 11:17] LABS: Hematocrit 33.6 % (40-54); Hemoglobin 11.6 g/dL (13.0-16.5)
[2021-08-10 11:31] LABS: Anion Gap 4 (5-15); BUN 28 mg/dL (7-18); BUN/Creat Ratio 31.1 RATIO (10-20); Chloride 110 mmol/L (98-107); EST Glomerular Filtration Rate 88 mL/min (>60); Est Glom Filt Rate - Afr Amer 106 mL/min (>60); Estimated Creatinine Clearance 70.92 ml/min; Glucose 110 mg/dL (74-106); Sodium Level 139 mmol/L (136-145)
[2021-08-10] MEDS: Ferrous Sulfate 325 MG Tablet PO (13:04)
[2021-08-10] MEDS: Ascorbic Acid 500 MG Tablet 1000 MG PO (13:04)
[2021-08-10 19:13] VITALS: BP 121/72; PULSE 60; RESP 18; TEMP 36.5; O2SAT 96
--- NOTE | 2021-08-10 20:15 | NURSING ---
Pt expels large amount of flatus when being turned side to side in bed. Pt given 500 ml of soap suds enema while laying on left side. Pt hold enema for 2 minutes or less and then expels 500 ml or more of brown watery liquid with no solids. Pt tolerates procedure well and reports to feel better afterwards while he presses on his abdomen.
[2021-08-10] MEDS: MELATONIN 3 MG TABLET PO (20:28)
[2021-08-10] MEDS: Citalopram 40 MG TABLET PO (20:28)
[2021-08-10] MEDS: Tamsulosin HCl 0.4 MG Capsule PO (20:28)
[2021-08-10] MEDS: Atorvastatin Calcium 40 MG Tablet PO (20:28)
[2021-08-10] MEDS: Baclofen 10 MG Tablet PO (20:28)
[2021-08-11 05:00] VITALS: BMI 34.2
[2021-08-11 06:10] LABS: Hematocrit 34.1 % (40-54); Hemoglobin 11.6 g/dL (13.0-16.5); Mean Corpuscular Hgb 30.5 pg (27.0-32.0); Mean Corpuscular Volume 89.7 fL (80-94); Mean Platelet Vol. 10.1 fl (6.2-12.0); Platelet Count 119 K/mm3 (150-450); RBC Distribution Width CV 14.9 % (11.6-14.6); RBC Distribution Width SD 48.8 fl (35.1-43.9); White Blood Count 6.2 K/mm3 (4.4-11.0)
[2021-08-11] MEDS: Acetaminophen 500 MG Tablet 1000 MG PO ×3 (06:22→20:06)
[2021-08-11] MEDS: Menthol/Lanolin/Calamine/Znox 113 GM Tube 1 APPLIC TOPICAL ×3 (06:23→20:07)
[2021-08-11] MEDS: Gabapentin 100 MG Capsule 200 MG PO (06:23)
[2021-08-11] MEDS: Nystatin Powder 15gm Bottle 1 APPLIC TOPICAL ×2 (06:23→20:08)
[2021-08-11 06:25] LABS: Anion Gap 5 (5-15); BUN 26 mg/dL (7-18); BUN/Creat Ratio 31.9 RATIO (10-20); Calcium,Total 8.5 mg/dL (8.5-10.1); Chloride 108 mmol/L (98-107); Creatinine, Serum 0.81 mg/dL (0.70-1.30); EST Glomerular Filtration Rate 98 mL/min (>60); Est Glom Filt Rate - Afr Amer 119 mL/min (>60); Glucose 92 mg/dL (74-106); Potassium 3.6 mmol/L (3.5-5.1); Sodium Level 139 mmol/L (136-145)
[2021-08-11 07:05] VITALS: BP 137/71; PULSE 64; RESP 16; TEMP 36.8; O2SAT 96
[2021-08-11] MEDS: Ketoconazole Cream 1 APPLIC TOPICAL ×2 (07:47→20:06)
[2021-08-11] MEDS: Methenamine Hippurate 1 GM Tablet PO (07:48)
[2021-08-11] MEDS: Senna Tablet 2 TABLET PO (07:48)
[2021-08-11] MEDS: Carvedilol 12.5 MG Tablet PO ×2 (07:49→20:05)
[2021-08-11] MEDS: NIFEdipine 30 MG Tablet PO (07:49)
[2021-08-11] MEDS: Lisinopril 20 MG Tablet PO (07:49)
[2021-08-11] MEDS: Potassium Chloride Oral Tablet 20 MEQ PO (07:50)
[2021-08-11] MEDS: Finasteride 5 MG Tablet PO (07:50)
[2021-08-11] MEDS: APIXABAN 5 MG TABLET PO ×2 (07:50→20:06)
[2021-08-11] MEDS: Juven (unflavored) Packet 1 PACKET PO ×2 (08:28→17:07)
--- NOTE | 2021-08-11 10:06 | PN_ITS ---
Subjective Subjective Afebrile VSS Maintaining appropriate oxygen saturation on RA Oral intake is good however the fluid balance for yesterday is still -1740. Discussed with nursing - no problems that need addressed Reviewed the PT/OT/ST notes - making good progress in therapy......plan is to send to TCU in 1 week for additional strengthening prior to going home since his can not assist him in getting from sit to stand from a chair. she is able to assist with bathing and dressing. He understands written language better th an verbal and has a dry erase board in the room to communicate with him. Medication list reviewed. All lab was personally reviewed. White blood cell count is normal at 6.2. Hemoglobin is stable at 11.6. Platelet count is decreased today at 119? Potassium is 3.6 and the BUN is 26 with a creatinine of 0.81 which is much improved since his fluid intake is improved. Denies lightheadedness, SOB, CP, abd pain, THOMAS, ST, cough. Objective Data Objective Data Vital Signs: Vital Signs Temp Pulse Resp BP Pulse Ox 98.2 F 64 16 137/71 H 96 08/11/21 07:05 08/11/21 07:05 08/11/21 07:05 08/11/21 07:05 08/11/21 07:05 Oxygen Delivery Method Room Air Weight: 241 lb 13.553 oz Body Mass Index (BMI) 34.2 Intake & Output: Intake and Output for Last 24 Hours 08/09/21 08/10/21 08/11/21 23:59 23:59 23:59 Intake Total 1380 / 1380 1700 / 1700 200 / 200 Output Total 2075 / 2075 3400 / 3400 750 / 750 Balance -695 / -695 -1700 / -1700 -550 / -550 Lab / Micro Data Result Diagrams: 08/11/21 05:56 08/11/21 05:56 Labs: Laboratory Results - last 24 hr 08/10/21 11:12: Hgb 11.6 L, Hct 33.6 L 08/10/21 11:12: Sodium 139, Potassium 4.0, Chloride 110 H, Carbon Dioxide 25.0, Anion Gap 4 L, BUN 28 H, Creatinine 0.90, Estim Creat Clear Calc 70.92, Est GFR (MDRD) Af Amer 106, Est GFR (MDRD) Non-Af 88, BUN/Creatinine Ratio 31.1 H, Glucose 110 H, Calcium 9.0 08/11/21 05:56: WBC 6.2, RBC 3.80 L, Hgb 11.6 L, Hct 34.1 L, MCV 89.7, MCH 30.5, MCHC 34.0, RDW Std Deviation 48.8 H, RDW Coeff of Donna 14.9 H, Plt Count 119 L, MPV 10.1 08/11/21 05:56: Sodium 139, Potassium 3.6, Chloride 108 H, Carbon Dioxide 26.0, Anion Gap 5, BUN 26 H, Creatinine 0.81, Estim Creat Clear Calc 78.80, Est GFR (MDRD) Af Amer 119, Est GFR (MDRD) Non-Af 98, BUN/Creatinine Ratio 31.9 H, Glucose 92, Calcium 8.5 Micro: Microbiology 08/09/21 21:20 Stool Stool Occult Blood (DEV) - Final Occult Blood Positive 07/25/21 14:45 Urine, Catheterized Urine Culture - Final Escherichia coli Physical Exam Const alert and no apparent distress General Appearance: cooperative, comfortable and well kempt HEENT moist oral mucous membranes Eyes PERRL and EOMs intact bilaterally General Eye: normal appearance of both eyes Visual Acuity: acuity normal Resp normal respiratory effort, normal air movement and clear to auscultation bilaterally Cardio regular rate, regular rhythm and no gallops Cardio Narrative: no ectopy GI soft to palpation and non-tender GI Narrative: mildly distended and tympanic but NT, even with deep palpation Back/Spine no CVA tenderness Extremity no pedal edema Skin Skin Narrative: He has some dry skin adherent to the borders of the gluteal cleft with some redness consistent with a stage I ulcers. Stage II have healed. Rashes: no rashes Assessment & Plan Assessment/Plan (1) Hypokalemia: PLAN: Add a second dose of 10 MEQ K with supper. Would like to keep the K+ at 4 or better. (2) Atrial fibrillation: PLAN: rate controlled when in AF but, he is often in a regular rhythm which is more likely than not a paced rhythm (3) Chronic anticoagulation: PLAN: On Eliquis - will need to stay on Eliquis now indefinitely (4) Hemiparesis affecting right side as late effect of cerebrovascular accident (CVA): PLAN: Continue therapy......he is getting stronger and able to ambulate longer distances with the WW. Still having some trouble going for sit to stand when getting up from a regular chair.......suspect he will do better with elevated chair. Has a power lift at home. (5) Decubitus ulcer, stage II: PLAN: Mostly resolved. Continue the Mejía catheter to prevent maceration. (6) Decubitus ulcer, stage I: PLAN: Continue the Calmoseptine. (7) Cerebrovascular accident (CVA) due to embolic occlusion of right middle cerebral artery: PLAN: Was not on anticoagulation at the time of the stroke but, he is currently opn Eliquis. When the PM was interrogated he was in AF at the time of the TIA. (8) Debility: PLAN: He was disabled at baseline and his was able to care for him........but she can not if he is unable to get up from a chair without assistance. Charges/Coding Visit Charges Inpatient E&M: 96613 Subs Hosp L2
[2021-08-11 10:10] VITALS: BP 121/85; BP 129/79; BP 135/72; PULSE 70; PULSE 72; PULSE 73
[2021-08-11] MEDS: Ferrous Sulfate 325 MG Tablet PO (13:23)
[2021-08-11] MEDS: Ascorbic Acid 500 MG Tablet 1000 MG PO (13:23)
[2021-08-11] MEDS: Gabapentin 300 MG Capsule PO ×2 (13:26→20:06)
[2021-08-11 13:46] VITALS: BMI 34.2
[2021-08-11] MEDS: Potassium Chloride Oral Tablet 10 MEQ PO (17:06)
[2021-08-11 19:19] VITALS: BP 109/58; PULSE 62; RESP 16; TEMP 36.4; O2SAT 96
[2021-08-11] MEDS: Citalopram 40 MG TABLET PO (20:05)
[2021-08-11] MEDS: MELATONIN 3 MG TABLET PO (20:06)
[2021-08-11] MEDS: Baclofen 10 MG Tablet PO (20:06)
[2021-08-11] MEDS: Tamsulosin HCl 0.4 MG Capsule PO (20:06)
[2021-08-11] MEDS: Atorvastatin Calcium 40 MG Tablet PO (20:06)
[2021-08-12 03:05] VITALS: BMI 34.2
[2021-08-12] MEDS: Acetaminophen 500 MG Tablet 1000 MG PO ×3 (05:52→21:21)
[2021-08-12] MEDS: Gabapentin 300 MG Capsule PO ×3 (05:52→21:20)
[2021-08-12] MEDS: Menthol/Lanolin/Calamine/Znox 113 GM Tube 1 APPLIC TOPICAL ×3 (05:53→22:11)
[2021-08-12] MEDS: Nystatin Powder 15gm Bottle 1 APPLIC TOPICAL ×2 (05:53→21:21)
[2021-08-12] MEDS: Potassium Chloride Oral Tablet 20 MEQ PO (07:44)
[2021-08-12] MEDS: Juven (unflavored) Packet 1 PACKET PO ×2 (07:44→16:29)
[2021-08-12] MEDS: Carvedilol 12.5 MG Tablet PO ×2 (07:45→21:21)
[2021-08-12] MEDS: APIXABAN 5 MG TABLET PO ×2 (07:45→21:21)
[2021-08-12] MEDS: Ketoconazole Cream 1 APPLIC TOPICAL ×2 (07:45→21:20)
[2021-08-12] MEDS: NIFEdipine 30 MG Tablet PO (07:45)
[2021-08-12] MEDS: Finasteride 5 MG Tablet PO (07:45)
[2021-08-12] MEDS: Lisinopril 20 MG Tablet PO (07:45)
[2021-08-12] MEDS: Methenamine Hippurate 1 GM Tablet PO (07:45)
[2021-08-12] MEDS: Senna Tablet 2 TABLET PO (07:47)
[2021-08-12 07:55] VITALS: BP 132/68; PULSE 58; RESP 17; TEMP 36.6; O2SAT 95
[2021-08-12] MEDS: Ferrous Sulfate 325 MG Tablet PO (13:17)
[2021-08-12] MEDS: Ascorbic Acid 500 MG Tablet 1000 MG PO (13:18)
--- NOTE | 2021-08-12 14:44 | CASEMGMT ---
Social Work IDT met with patient, , and dtr for Team meeting. Discussed patient's progress in PT/OT/ST and nursing. Pt making progress. The DC plan remains DC to TCU 08/17. LIYAH RodriguezW
[2021-08-12] MEDS: Potassium Chloride Oral Tablet 10 MEQ PO (16:29)
[2021-08-12 19:02] VITALS: BP 113/66; PULSE 69; RESP 18; TEMP 36.6; O2SAT 97
[2021-08-12 19:50] VITALS: BMI 34.2
[2021-08-12 21:12] VITALS: BMI 34.2
[2021-08-12] MEDS: MELATONIN 3 MG TABLET PO (21:20)
[2021-08-12] MEDS: Baclofen 10 MG Tablet PO (21:21)
[2021-08-12] MEDS: Tamsulosin HCl 0.4 MG Capsule PO (21:21)
[2021-08-12] MEDS: Citalopram 40 MG TABLET PO (21:21)
[2021-08-12] MEDS: Atorvastatin Calcium 40 MG Tablet PO (21:22)
[2021-08-12 21:59] VITALS: PULSE 76; RESP 16
[2021-08-13] MEDS: Menthol/Lanolin/Calamine/Znox 113 GM Tube 1 APPLIC TOPICAL ×2 (05:51→22:25)
[2021-08-13] MEDS: Acetaminophen 500 MG Tablet 1000 MG PO ×3 (05:52→21:18)
[2021-08-13] MEDS: Gabapentin 300 MG Capsule PO ×3 (05:52→21:18)
[2021-08-13] MEDS: Nystatin Powder 15gm Bottle 1 APPLIC TOPICAL ×2 (05:52→21:18)
[2021-08-13 07:54] VITALS: BP 115/63; PULSE 55; RESP 16; TEMP 35.8; O2SAT 95
[2021-08-13] MEDS: Methenamine Hippurate 1 GM Tablet PO (08:00)
[2021-08-13] MEDS: Senna Tablet 2 TABLET PO (08:00)
[2021-08-13] MEDS: Finasteride 5 MG Tablet PO (08:00)
[2021-08-13] MEDS: APIXABAN 5 MG TABLET PO ×2 (08:00→21:18)
[2021-08-13] MEDS: Potassium Chloride Oral Tablet 20 MEQ PO (08:00)
[2021-08-13] MEDS: Carvedilol 12.5 MG Tablet PO ×2 (08:00→21:18)
[2021-08-13] MEDS: Ketoconazole Cream 1 APPLIC TOPICAL ×2 (08:00→21:17)
[2021-08-13] MEDS: NIFEdipine 30 MG Tablet PO (08:00)
[2021-08-13] MEDS: Lisinopril 20 MG Tablet PO (08:00)
[2021-08-13] MEDS: Juven (unflavored) Packet 1 PACKET PO ×2 (08:00→17:25)
[2021-08-13] MEDS: Ferrous Sulfate 325 MG Tablet PO (11:58)
[2021-08-13] MEDS: Ascorbic Acid 500 MG Tablet 1000 MG PO (11:58)
[2021-08-13] MEDS: Potassium Chloride Oral Tablet 10 MEQ PO (17:26)
[2021-08-13 18:57] VITALS: BP 127/60; PULSE 56; RESP 18; TEMP 36.7; O2SAT 96
[2021-08-13 20:46] VITALS: BMI 34.2
[2021-08-13 20:47] VITALS: PULSE 72; RESP 16; O2SAT 97
[2021-08-13] MEDS: Baclofen 10 MG Tablet PO (21:18)
[2021-08-13] MEDS: Atorvastatin Calcium 40 MG Tablet PO (21:18)
[2021-08-13] MEDS: MELATONIN 3 MG TABLET PO (21:18)
[2021-08-13] MEDS: Tamsulosin HCl 0.4 MG Capsule PO (21:18)
[2021-08-13] MEDS: Citalopram 40 MG TABLET PO (21:18)
[2021-08-14] MEDS: Acetaminophen 500 MG Tablet 1000 MG PO ×3 (06:14→21:13)
[2021-08-14] MEDS: Nystatin Powder 15gm Bottle 1 APPLIC TOPICAL ×2 (06:14→21:12)
[2021-08-14] MEDS: Gabapentin 300 MG Capsule PO ×3 (06:14→21:13)
[2021-08-14] MEDS: Menthol/Lanolin/Calamine/Znox 113 GM Tube 1 APPLIC TOPICAL ×3 (06:15→21:14)
[2021-08-14] MEDS: Carvedilol 12.5 MG Tablet PO ×2 (07:40→21:12)
[2021-08-14] MEDS: APIXABAN 5 MG TABLET PO ×2 (07:40→21:12)
[2021-08-14] MEDS: Potassium Chloride Oral Tablet 20 MEQ PO (07:41)
[2021-08-14] MEDS: Senna Tablet 2 TABLET PO (07:41)
[2021-08-14] MEDS: Juven (unflavored) Packet 1 PACKET PO ×2 (07:41→17:29)
[2021-08-14] MEDS: NIFEdipine 30 MG Tablet PO (07:41)
[2021-08-14] MEDS: Methenamine Hippurate 1 GM Tablet PO (07:41)
[2021-08-14] MEDS: Lisinopril 20 MG Tablet PO (07:41)
[2021-08-14] MEDS: Ketoconazole Cream 1 APPLIC TOPICAL ×2 (07:41→21:13)
[2021-08-14] MEDS: Finasteride 5 MG Tablet PO (07:41)
[2021-08-14 07:45] VITALS: BP 131/67; PULSE 57; RESP 16; TEMP 36.4; O2SAT 95
[2021-08-14] MEDS: Ferrous Sulfate 325 MG Tablet PO (13:28)
[2021-08-14] MEDS: Ascorbic Acid 500 MG Tablet 1000 MG PO (13:28)
[2021-08-14 15:57] VITALS: BMI 34.2
[2021-08-14] MEDS: Potassium Chloride Oral Tablet 10 MEQ PO (17:29)
[2021-08-14 19:02] VITALS: BP 117/67; PULSE 64; RESP 16; TEMP 36.5; O2SAT 96
[2021-08-14 20:57] VITALS: BMI 34.2
[2021-08-14 20:59] VITALS: PULSE 69; RESP 16; O2SAT 96
[2021-08-14] MEDS: Baclofen 10 MG Tablet PO (21:12)
[2021-08-14] MEDS: Tamsulosin HCl 0.4 MG Capsule PO (21:12)
[2021-08-14] MEDS: Citalopram 40 MG TABLET PO (21:12)
[2021-08-14] MEDS: Atorvastatin Calcium 40 MG Tablet PO (21:12)
[2021-08-14] MEDS: MELATONIN 3 MG TABLET PO (21:12)
[2021-08-15] MEDS: Menthol/Lanolin/Calamine/Znox 113 GM Tube 1 APPLIC TOPICAL ×3 (06:17→21:00)
[2021-08-15] MEDS: Nystatin Powder 15gm Bottle 1 APPLIC TOPICAL ×2 (06:17→21:03)
[2021-08-15] MEDS: Gabapentin 300 MG Capsule PO ×3 (06:18→21:03)
[2021-08-15] MEDS: Acetaminophen 500 MG Tablet 1000 MG PO ×3 (06:19→21:07)
[2021-08-15 07:14] VITALS: BP 139/82; PULSE 59; RESP 16; TEMP 36.6; O2SAT 96
[2021-08-15] MEDS: Juven (unflavored) Packet 1 PACKET PO ×2 (07:44→17:45)
[2021-08-15] MEDS: Lisinopril 20 MG Tablet PO (07:44)
[2021-08-15] MEDS: Ketoconazole Cream 1 APPLIC TOPICAL ×2 (07:44→21:03)
[2021-08-15] MEDS: NIFEdipine 30 MG Tablet PO (07:45)
[2021-08-15] MEDS: Finasteride 5 MG Tablet PO (07:45)
[2021-08-15] MEDS: Carvedilol 12.5 MG Tablet PO ×2 (07:45→21:00)
[2021-08-15] MEDS: Potassium Chloride Oral Tablet 20 MEQ PO (07:45)
[2021-08-15] MEDS: APIXABAN 5 MG TABLET PO ×2 (07:45→21:00)
[2021-08-15] MEDS: Methenamine Hippurate 1 GM Tablet PO (07:45)
[2021-08-15] MEDS: Senna Tablet 2 TABLET PO (07:45)
[2021-08-15] MEDS: Ferrous Sulfate 325 MG Tablet PO (12:43)
[2021-08-15] MEDS: Ascorbic Acid 500 MG Tablet 1000 MG PO (12:44)
[2021-08-15] MEDS: Nystatin/Triamcin Cream Tube 1 APPLIC TOPICAL ×2 (13:14→21:02)
--- NOTE | 2021-08-15 13:22 | PCM.PN.BLA ---
Progress Note Afebrile VSS-heart rate has ranged from 55-76 over the past few days. Blood pressure is well controlled. Maintaining appropriate oxygen saturation on RA -95 to 97%. Oral intake is good Discussed with nursing - He has a reddened area on the glans penis nursing would like me to check.......they have been using Calmoseptine on it. I have been told that the clip that keeps the catheter tubing in place on the thigh has come loose a few times and since he can not feel it applying traction to the tubing as it enters the glans the glans has been irritated. Reviewed the PT/OT/ST notes Medication list reviewed. No abd pain, CP, SOB, N/V/burping. Starr catheter in place. Denies pain of the glans or penis. Alert.....was able to get up from the recliner to a standing position without assistance today. No apparent distress. The stage decubitus ulcers are healed. There are just a few small areas of dry hyperkeratotic skin left. The pt is circumcised. there is a ulceration (likely a pressure ulcer from traction on the Starr tubing on the glans at the urethral opening. It is covered with white film that can not be wiped away. Minimal rim of erythema around the ulceration. There is some redness on the dorsal side of the glans where the foreskin attaches and some whitish DC which has the appearance of yeast. He has no feeling in the area. Impressions: 1. embolic CVA - continue therapy. Plan TCU transfer on 08/17/21. 2. Left hemiparesis and aphasia - improving. 3. Decubitus ulcers stage I and II on the buttocks - healed 4. Pressure ulcer at junction of the glans penis and urethra due to traction on the Starr tubing when the clip came undone and since he can not feel anything in the area he did not c/o pain. Will DC the starr and use a lot of Lube with str cathing. 5. cisco infection beneath the foreskin......apply ketoconazole cream BIS and alert nursing to clean the area thoroughly when they are changing the depends. continue liberal use of Calmoseptine on the buttocks to protect the skin against breakdown. Visit Charges Inpatient E&M: 06034 Subs Hosp L2
[2021-08-15 14:00] VITALS: BMI 34.2
--- NOTE | 2021-08-15 14:09 | PCM.TXEXTCAR ---
Diet 07/25/21 09:20 Diet: Cardiac - Heart Healthy Type of Dietary Supplement:: EP & MC Is pt able to select menu?: Yes Diet Comments: ensure pudding w/ lunch; magic cup w/ dinner Tube Feed: N/A Routine Orders/Code Status Enema Type: Fleetz (Daily. He has neurogenic colon.) Enema Frequency: Daily O2 Liters per Minute: 1-2 O2 Frequency: PRN Keep PO Greater than or Equal to (%): 90 Wound(s) left buttock: Wound Type: Pressure Injury right buttock: Wound Type: Pressure Injury R Elbow: Wound Type: Abrasion COCCYX: Wound Type: Pressure Injury penis tip: Wound Type: Abrasion Therapies Weight Bearing: Full weight bearing Extremity Affected:: Bilateral Lower Physical Therapy: Eval and Treat Occupational Therapy: Eval and Treat Speech Therapy: Eval and Treat Problem/Diagnosis (1) Debility: Status: Acute Comment: making excellent progress in therapy and can now walk 95' with a WW at RACHEL/MOD A (2) Cerebrovascular accident (CVA) due to embolic occlusion of middle cerebral artery: Status: Acute Comment: 07/12/21 - received TPA. L MCA occlusion. Was not on anticoagulation at the time of the stroke and is now on Eliquis. (3) Dysarthria: Status: Acute (4) Aphasia: Status: Acute Comment: Expressive and receptive. Improved significantly since admission. Written language better than spoken language. (5) Hemiparesis affecting right side as late effect of cerebrovascular accident (CVA): Status: Acute (6) Atrial fibrillation: Status: Acute Comment: Intermittent AF and regular paced rhythm. He was in AF at the time of the R cerebral TIA which followed the L stroke while in REHAB. He was also very dehydrated at the time of the TIA. 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 (18) TIA (transient ischemic attack): Status: Resolved Comment: 07/22/21. Was dehydrated and in AF at the time and TIA possibly due to low cerebral blood flow (19) Hypokalemia: Status: Resolved (20) Pressure ulcer: Status: Acute Comment: At the Glans penis/urethra junction due to traction on the Mejía tubing when the clip came apart Allergies/Procedures Done in Hospital Allergies ciprofloxacin [From Cipro] Allergy (Verified 07/12/21 09:25) Hives sulfamethoxazole [From Bactrim] Allergy (Verified 07/12/21 09:25) PT UNSURE OF REACTION trimethoprim [From Bactrim] Allergy (Verified 07/12/21 09:25) PT UNSURE OF REACTION Type of Care/Length of Stay Estimated LOS: Convalescent Care Less Than 30 days Type of Care Needed: Skilled Rehab Potential: Good Prognosis: Good Additional Orders/Day of Discharge H&P will serve as current which was dated: 07/25/21 Day of Discharge: 08/17/21 Dietary and Speech Recommendations Dietitian Recommendations/Changes: Continue Cardiac diet as ordered; consistency adjustments as needed per [employer]. Continue ensure pudding w/ lunch and magic cup w/ dinner as ordered. Continue Celestino bid with medpass to help with wound healing. Trend weights closely. Speech Linguistic Eval Summary[facility], but due to expressive and receptive language impairment, it was unable to be administered. Pt. oriented to self given yes/no questions only. When asked to give responses to cognitive tasks, he vocalized I don't know I don't understand You should ask someone else along with paraphasic speech. Pt. able to name objects with 0% accuracy, pictures with 10% accuracy, sentence completion 0% accuracy, automatic naming of Days of the week 03/21 with prompt of Wednesday, Wednesday, counted 1-10 with 100% accuracy, Months of the year 03/26 with prompt of March,; Pt. was able to read a sentence with 75% accuracy, read words with 80% accuracy. Pt. was able to follow 1-step directions with 50% accuracy given visual model of direction. Pt. was able to write his name with moderate prompting with verbal and tactile prompts putting last name first followed by his first name. Pt. responded yes when write sentence was accurate (My name is Ignacio Barron). Pt. was able to visually scan and correctly count dots with 50% accuracy; label letters with distortion with 50% accuracy. Pt. presented with frustration with inability to respond to questions and would say I know what you want and I'm sorry. PT. speech presented with incomplete sentences, semantic, phonemic and neologistic paraphasias. Follow Up Care Please follow up with your Primary Care Physician in: following DC from TCU Please Follow Up With: Ignacio Quan MD When: following DC from TCU Please Follow Up With: Lyle Chacon MD When: following DC from TCU Discharge Plan Admission Admit Date/Time: 07/25/21 07:15 Primary Reason for Your Visit: Post stroke debility with left hemiparesis, aphasia and dysarthria Attending Provider: Nuzhat Lozoya Primary Care Provider: Tunde Beard Instructions Additional Instructions / Restrictions: 1. Daily Fleet's enema for Neurogenic colon. 2. Straight cath every 6-8 hours for neurogenic bladder. Discharge Orders/Prescriptions Prescriptions: New acetaminophen 500 mg Tablet 1,000 mg PO Q8 Qty: 0 RF: 0 ferrous sulfate [FeroSul] 325 mg (65 mg iron) Tablet 325 mg PO DAILY@1200 Qty: 0 RF: 0 gabapentin 300 mg Capsule 300 mg PO TID Qty: 0 RF: 0 ketoconazole 2 % Cream 1 applic topical BID PRN (Reason: seborrheic dermatitis) Qty: 60 RF: 0 sennosides [Dianna-wendi] 8.6 mg Tablet 2 tab PO DAILY Qty: 0 RF: 0 ascorbic acid (vitamin C) 500 mg Tablet 1,000 mg PO LUNCH Qty: 0 RF: 0 nystatin-triamcinolone 100,000-0.1 unit/g-% Cream 1 applic topical TID Qty: 0 RF: 0 potassium chloride 10 mEq Tablet,Er Particles/Crystals 10 meq PO 1700 Qty: 0 RF: 0 acidophilus-pectin, citrus 25 million cell -100 mg Tablet 1 tab PO DAILY Qty: 0 RF: 0 menthol-zinc oxide [Calmoseptine] 0.44-20.6 % Ointment 1 applic topical TID Qty: 0 RF: 0 Celestino (with collagen) 7-7-1.5 gram Powder In Packet 1 packet PO BIDCM Qty: 0 RF: 0 Continued vitamin E (dl, acetate) 400 unit capsule 400 unit PO DAILY RF: 0 lisinopril 20 MG tablet 20 mg PO DAILY RF: 0 citalopram 20 MG tablet 40 mg PO QHS RF: 0 atorvastatin 40 mg Tablet 40 mg PO QHS RF: 0 carvedilol 12.5 mg Tablet 12.5 mg PO Q12H RF: 0 melatonin 3 mg Tablet 3 mg PO QHS RF: 0 methenamine hippurate 1 gram Tablet 1 g PO DAILY RF: 0 tamsulosin 0.4 mg Capsule 0.4 mg PO QHS RF: 0 baclofen 10 mg Tablet 10 mg PO QHS RF: 0 aspirin 81 mg Tablet,Chewable 81 mg PO DAILY RF: 0 nystatin 100,000 unit/gram Powder 1 applic TOPICAL BID RF: 0 finasteride [Proscar] 5 mg Tablet 5 mg PO DAILY RF: 0 food supplemt, lactose-reduced Liquid 120 ml PO 4X/DAY RF: 0 nifedipine 30 mg tablet extended release 30 mg PO DAILY RF: 0 Acidophilus Tablet,Chewable 1 tab PO DAILY RF: 0 Eliquis 5 mg Tablet 5 mg PO BID RF: 0 Changed potassium chloride 20 mEq Tablet Extended Release 20 meq PO BREAKFAST Qty: 0 RF: 0 Discontinued gabapentin 100 mg Capsule 200 mg PO TID RF: 0 sennosides 17.2 mg Tablet 17.2 mg PO DAILY RF: 0 ferrous sulfate 324 mg (65 mg iron) Tablet,Delayed Release (Dr/Ec) 324 mg PO TID RF: 0 acetaminophen 500 mg Tablet 1,000 mg PO Q6H PRN (Reason: Pain) RF: 0 ketoconazole 2 % Cream 1 applic TOPICAL BID RF: 0 Referrals / Follow Up: Ignacio Quan MD [STAFF PHYSICIAN] - 09/05/21 3:00 pm Tunde Beard DO [Primary Care Provider] - Disposition Disposition (needs filled in before D/C Order can be placed): Nursing Home Facility
--- NOTE | 2021-08-15 15:04 | PCM.DC.SUM ---
Providers Date of Admission: 07/25/21 Date of Discharge: 08/17/21 Primary Care Physician: Dr. Tunde Beard DO Reason For Visit: STROKE Diagnosis Discharge Diagnosis (1) Debility: Status: Acute Code(s): R53.81 - Other malaise (2) Cerebrovascular accident (CVA) due to embolic occlusion of middle cerebral artery: Status: Acute Code(s): I63.419 - Cerebral infarction due to embolism of unspecified middle cerebral artery (3) Dysarthria: Status: Acute Code(s): R47.1 - Dysarthria and anarthria (4) Aphasia: Status: Acute Code(s): R47.01 - Aphasia (5) Hemiparesis affecting right side as late effect of cerebrovascular accident (CVA): Status: Acute Code(s): I69.351 - Hemiplegia and hemiparesis following cerebral infarction affecting right dominant side (6) Atrial fibrillation: Status: Acute Code(s): I48.91 - Unspecified atrial fibrillation (7) Chronic anticoagulation: Status: Acute Code(s): Z79.01 - oil heaterman (current) use of anticoagulants (8) Decubitus ulcer, stage II: Status: Resolved Code(s): L89.92 - Pressure ulcer of unspecified site, stage 2 (9) Decubitus ulcer, stage I: Status: Resolved Code(s): L89.91 - Pressure ulcer of unspecified site, stage 1 (10) Depression: Status: Acute Code(s): F32.A - Depression, unspecified (11) Heme + stool: Status: Acute Code(s): R19.5 - Other fecal abnormalities (12) Normochromic normocytic anemia: Status: Acute Code(s): D64.9 - Anemia, unspecified (13) Prostatic hypertrophy: Status: Chronic Code(s): N40.0 - Benign prostatic hyperplasia without lower urinary tract symptoms (14) 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: Status: Chronic Code(s): G82.54 - Quadriplegia, C5-C7 incomplete (15) Neurogenic bowel: Status: Chronic Code(s): K59.2 - Neurogenic bowel, not elsewhere classified (16) Neurogenic bladder: Status: Chronic Code(s): N31.9 - Neuromuscular dysfunction of bladder, unspecified (17) Pacemaker: Status: Chronic Code(s): Z95.0 - Presence of cardiac pacemaker (18) TIA (transient ischemic attack): Status: Resolved Code(s): G45.9 - Transient cerebral ischemic attack, unspecified (19) Hypokalemia: Status: Resolved Code(s): E87.6 - Hypokalemia (20) Pressure ulcer: Status: Acute Code(s): L89.90 - Pressure ulcer of unspecified site, unspecified stage Plan: 1. Transfer to TCU on 08/17/21 for additional therapy prior to going home. Must be able to get to a standing position from a seated position to go home. 2. Will follow up with Dr. Quan and Dr. Beard following DC from TCU. 3. Follow up with neurology following DC from TCU Medications at Discharge Home Medications lisinopril 20 mg PO DAILY 06/24/15 vitamin E (dl, acetate) 180 mg (400 unit) capsule 400 unit PO DAILY 02/14/18 citalopram 40 mg PO QHS 03/29/19 aspirin 81 mg PO DAILY 07/18/21 atorvastatin 40 mg PO QHS 07/18/21 baclofen 10 mg PO QHS 07/18/21 carvedilol 12.5 mg PO Q12H 07/18/21 finasteride [Proscar] 5 mg PO DAILY 07/18/21 food supplemt, lactose-reduced 120 ml PO 4X/DAY 07/18/21 melatonin 3 mg PO QHS 07/18/21 methenamine hippurate 1 g PO DAILY 07/18/21 nifedipine 30 mg PO DAILY 07/18/21 nystatin 1 applic TOPICAL BID 07/18/21 tamsulosin 0.4 mg PO QHS 07/18/21 Acidophilus 1 tab PO DAILY 07/25/21 Eliquis 5 mg PO BID 07/25/21 ketoconazole 1 applic TOPICAL BID PRN #60 g 08/15/21 acetaminophen 1,000 mg PO Q8 08/17/21 acidophilus-pectin, citrus 1 tab PO DAILY 08/17/21 [id number] [Celestino (with collagen)] 1 packet PO BIDCM 08/17/21 ascorbic acid (vitamin C) 1,000 mg PO LUNCH 08/17/21 ferrous sulfate [FeroSul] 325 mg PO DAILY@1200 08/17/21 gabapentin 300 mg PO TID 08/17/21 menthol-zinc oxide [Calmoseptine] 1 applic TOPICAL TID 08/17/21 nystatin-triamcinolone 1 applic TOPICAL TID 08/17/21 potassium chloride 10 meq PO 1700 08/17/21 potassium chloride 20 meq PO BREAKFAST 08/17/21 sennosides [Dianna-wendi] 2 tab PO DAILY 08/17/21 Hospital Course Operations None Procedures None Summary of Care Provided Minutes Spent on Discharge: 40 Hospital Course: Mr. Ignacio Barron is a 76-year-old man with a history of atrial fibrillation (not on anticoagulation), sick sinus syndrome, permanent pacemaker implantation, long standing incomplete paraplegia secondary to subluxation of C5/C6 sustained due to syncope, right anterior communicating artery aneurysm (stable) and recent left embolic MCA CVA's on 07/12/2021 for which he received tPA who was transferred from [facility] to the acute inpt rehab unit at [facility] on 07/18/2021 for 3 hours of therapy daily to restore function/independence at or near his prior level. He was ambulatory with 2 canes prior to recent CVA and his provided assistance with LB dressing and bathing. A few days after arriving on rehab he became non-verbal, leaned heavily to the left while sitting in the chair and could not move his left side. A noncontrast CT brain showed evolution of the previous left side CVA but nothing on the right. CTA showed no large vessel occlusion. He was transferred back to [facility]. Short time after receiving a normal saline bolus and being started on a normal saline IV the symptoms resolved. He was diagnosed with a TIA. While at [facility] his PM was interrogated and he was found to be in AF at the time of the TIA. He was also very dehydrated due to poor intake and the combination of these 2 things likely lead to poor cerebral blood flow. He returned to the rehab unit on 07/25/21 to continue therapy to restore function at or near his prior level of function/independence before the Left MCA embolic stroke. When he returned from [facility] the second time he had stage II decubitus ulcers on his buttocks. These were treated with offloading and Calmoseptine. He has a neurogenic bladder and he gets straight cath'd regularly but, he also has incontinence and is frequently wet but, because of the quadriplegia he can not feel the wetness. He also developed a UTI while at [facility] and the culture grew a pansensitive E. coli which was treated with 10 days of Keflex. The buttock remained somewhat macerated and a Mejía catheter was placed so that we could keep him dry at all times to allow the decubitus ulcers to heal. The decubs healed but, he developed a pressure ulcer on the glans penis at the tip where the urethra ends. The Mejía catheter was removed on 08/15/21. At that time he also had a cisco infection involving the outer rim of the glans penis and underneath the small amount of foreskin he still has. Miconazole cream was ordered. Will need to continue to monitor the pressure ulcer on the glans penis until it is completely healed. Anurag is a very hard worker and is determined to get back home. He has been making steady progress in therapy. Prior to discharge from rehab he was able to ambulate 95 feet with a wheeled walker at min assist once on his feet and with a wheelchair follow. Although he has improved significantly from admission to rehab he is not yet to the point where his would be able to provide enough assistance to take him home. He was transferred to [facility] for additional therapy on 08/17/21 in hopes that with more therapy he will be able to return home with his who provided adequate assistance prior to the recent stroke. He is already able to ambulate further than he was walking with 2 canes prior to the stroke. Physical Exam Const alert, no apparent distress and well nourished Constitutional Narrative: Sitting in the recliner at the bedside and appears comfortable. Able to communicate with me using the dry Hyperink board. General Appearance: cooperative, comfortable, well kempt and well developed HEENT normocephalic and moist oral mucous membranes Eyes PERRL, EOMs intact bilaterally, conjunctivae normal and no scleral icterus General Eye: normal appearance of both eyes Visual Acuity: acuity normal Neck no JVD General: trachea midline Lymph Lymphatic: no lymphadenopathy noted and no lymphedema noted Chest Chest: symmetrical chest wall rise Resp normal respiratory effort, normal air movement, no retractions, no use of accessory muscles and clear to auscultation bilaterally Resp Narrative: Not tachypneic, no accessory muscle use, even with exertion. Effort and Inspection: able to speak in complete sentences Cardio regular rate, regular rhythm, S1 normal heart sound, S2 normal heart sound, no rub and no gallops Cardio Narrative: no ectopy Heart Sounds: murmur systolic II/ GI soft to palpation, non-tender and non-distended GI Narrative: mildly distended and tympanic but NT, even with deep palpation no CVA tenderness Narrative: Bladder is not distended, Mejía is in place. Back/Spine no CVA tenderness Extremity normal capillary refill, no clubbing, cyanosis or edema and no pedal edema Extremity Narrative: no significant edema of the LE's Skin Skin Narrative: He has some dry skin adherent to the borders of the gluteal cleft with some redness consistent with a stage I ulcers. Stage II have healed. Rashes: no rashes Wound Narrative: stage 2 decubs at admission are nearly all healed Neuro Neuro Narrative: alert, receptive and expressive aphasia (does better with written communication). Still with weakness on the R side and a facial droop but, has definitely improved. Psych cooperative and affect normal Psych Narrative: not tearful, sleeping well at night, good appetite, cooperative and makes good eye contact Appearance: grossly normal, appropriate and well kempt Attitude: calm Activity / Motor Behavior: appropriate eye contact Mood & Affect: Negative for anxious Weight / BMI Weight Weight: 237 lb 14.06 oz Body Mass Index (BMI) 34.2 ABG / Lab / Microbiology Data Result Diagrams: 08/16/21 06:57 08/16/21 06:57 Microbiology: Microbiology 08/09/21 21:20 Stool Stool Occult Blood (DEV) - Final Occult Blood Positive 07/25/21 14:45 Urine, Catheterized Urine Culture - Final Escherichia coli D/C Instructions Please Follow Up With: Ignacio Quan MD Meaningful Use Info Meaningful Use Diagnoses (Choose all that apply): Ischemic CVA CVA Therapy Assessed for PT,OT and/or ST?: Yes Ischemic Stroke Antithrombotic order at d/c?: Yes Dx of Atrial fib/flutter?: Yes Anticoagulant at discharge?: Yes Statins at discharge?: Yes Primary Dx Acute Ischemic CVA?: Yes IV tPA ordered during stay?: No Reason IV t-PA not ordered: Treatment not Indicated (pt is in a rehab unit post stroke) Discharge Plan Admission Admit Date/Time: 07/25/21 07:15 Primary Reason for Your Visit: Post stroke debility with left hemiparesis, aphasia and dysarthria Attending Provider: Nuzhat Lozoya Primary Care Provider: Tunde Beard Instructions Additional Instructions / Restrictions: 1. Daily Fleet's enema for Neurogenic colon. 2. Straight cath every 6-8 hours for neurogenic bladder. Discharge Orders/Prescriptions Prescriptions: New ketoconazole 2 % Cream 1 applic topical BID PRN (Reason: seborrheic dermatitis) Qty: 60 RF: 0 Continued vitamin E (dl, acetate) 400 unit capsule 400 unit PO DAILY RF: 0 lisinopril 20 MG tablet 20 mg PO DAILY RF: 0 citalopram 20 MG tablet 40 mg PO QHS RF: 0 atorvastatin 40 mg Tablet 40 mg PO QHS RF: 0 carvedilol 12.5 mg Tablet 12.5 mg PO Q12H RF: 0 melatonin 3 mg Tablet 3 mg PO QHS RF: 0 methenamine hippurate 1 gram Tablet 1 g PO DAILY RF: 0 tamsulosin 0.4 mg Capsule 0.4 mg PO QHS RF: 0 baclofen 10 mg Tablet 10 mg PO QHS RF: 0 aspirin 81 mg Tablet,Chewable 81 mg PO DAILY RF: 0 nystatin 100,000 unit/gram Powder 1 applic TOPICAL BID RF: 0 finasteride [Proscar] 5 mg Tablet 5 mg PO DAILY RF: 0 food supplemt, lactose-reduced Liquid 120 ml PO 4X/DAY RF: 0 nifedipine 30 mg tablet extended release 30 mg PO DAILY RF: 0 Acidophilus Tablet,Chewable 1 tab PO DAILY RF: 0 Eliquis 5 mg Tablet 5 mg PO BID RF: 0 Discontinued gabapentin 100 mg Capsule 200 mg PO TID RF: 0 sennosides 17.2 mg Tablet 17.2 mg PO DAILY RF: 0 ferrous sulfate 324 mg (65 mg iron) Tablet,Delayed Release (Dr/Ec) 324 mg PO TID RF: 0 acetaminophen 500 mg Tablet 1,000 mg PO Q6H PRN (Reason: Pain) RF: 0 ketoconazole 2 % Cream 1 applic TOPICAL BID RF: 0 potassium chloride 20 mEq Tablet Extended Release 20 meq PO DAILY RF: 0 No Action sennosides [Dianna-wendi] 8.6 mg tablet 2 tab PO DAILY RF: 0 acetaminophen 500 mg tablet 1,000 mg PO Q8 RF: 0 ascorbic acid (vitamin C) 500 mg tablet 1,000 mg PO LUNCH RF: 0 ferrous sulfate [FeroSul] 325 mg (65 mg iron) tablet 325 mg PO DAILY@1200 RF: 0 nystatin-triamcinolone 100,000-0.1 unit/g-% cream 1 applic topical TID RF: 0 gabapentin 300 mg capsule 300 mg PO TID RF: 0 potassium chloride 10 mEq tablet,ER particles/crystals 10 meq PO 1700 RF: 0 acidophilus-pectin, citrus 25 million cell -100 mg tablet 1 tab PO DAILY RF: 0 menthol-zinc oxide [Calmoseptine] 0.44-20.6 % ointment 1 applic topical TID RF: 0 potassium chloride 20 mEq tablet extended release 20 meq PO BREAKFAST RF: 0 Celestino (with collagen) 7-7-1.5 gram powder in packet 1 packet PO BIDCM RF: 0 Referrals / Follow Up: Ignacio Quan MD [STAFF PHYSICIAN] - 09/05/21 3:00 pm Tunde Beard DO [Primary Care Provider] - Disposition Disposition (needs filled in before D/C Order can be placed): [facility] Facility Charges/Coding Visit Charges Inpatient E&M: 92573 Disch Hosp
[2021-08-15] MEDS: Potassium Chloride Oral Tablet 10 MEQ PO (17:45)
[2021-08-15 19:14] VITALS: BP 114/64; PULSE 65; RESP 16; TEMP 36.6; O2SAT 96
[2021-08-15 20:00] VITALS: RESP 16; O2SAT 96
[2021-08-15] MEDS: Citalopram 40 MG TABLET PO (21:00)
[2021-08-15] MEDS: Tamsulosin HCl 0.4 MG Capsule PO (21:01)
[2021-08-15] MEDS: Baclofen 10 MG Tablet PO (21:01)
[2021-08-15] MEDS: MELATONIN 3 MG TABLET PO (21:02)
[2021-08-15] MEDS: Atorvastatin Calcium 40 MG Tablet PO (21:02)
[2021-08-15 23:09] VITALS: BMI 34.2
[2021-08-16] MEDS: Acetaminophen 500 MG Tablet 1000 MG PO ×3 (05:43→21:31)
[2021-08-16] MEDS: Gabapentin 300 MG Capsule PO ×3 (05:43→21:30)
[2021-08-16] MEDS: Menthol/Lanolin/Calamine/Znox 113 GM Tube 1 APPLIC TOPICAL ×3 (05:47→21:37)
[2021-08-16] MEDS: Nystatin Powder 15gm Bottle 1 APPLIC TOPICAL ×2 (05:48→22:00)
[2021-08-16] MEDS: Nystatin/Triamcin Cream Tube 1 APPLIC TOPICAL ×3 (05:48→21:30)
[2021-08-16 07:14] LABS: Hematocrit 35.5 % (40-54); Hemoglobin 11.8 g/dL (13.0-16.5); Mean Corp Hgb Conc 33.2 g/dL (32-36); Mean Corpuscular Hgb 30.6 pg (27.0-32.0); Mean Corpuscular Volume 92.2 fL (80-94); Mean Platelet Vol. 10.3 fl (6.2-12.0); Platelet Count 150 K/mm3 (150-450); RBC Distribution Width CV 14.9 % (11.6-14.6); RBC Distribution Width SD 50.5 fl (35.1-43.9); Red Blood Count 3.85 M/mm3 (4.6-6.2); White Blood Count 6.5 K/mm3 (4.4-11.0)
[2021-08-16 07:19] LABS: Anion Gap 6 (5-15); BUN 34 mg/dL (7-18); BUN/Creat Ratio 42.2 RATIO (10-20); Calcium,Total 8.8 mg/dL (8.5-10.1); Chloride 109 mmol/L (98-107); EST Glomerular Filtration Rate 99 mL/min (>60); Est Glom Filt Rate - Afr Amer 120 mL/min (>60); Estimated Creatinine Clearance 79.78 ml/min; Glucose 97 mg/dL (74-106); Magnesium 2.3 mg/dL (1.6-2.6); Potassium 3.8 mmol/L (3.5-5.1); Sodium Level 138 mmol/L (136-145)
[2021-08-16 07:28] VITALS: BP 122/68; PULSE 61; RESP 16; TEMP 36.3; O2SAT 95
[2021-08-16] MEDS: Ketoconazole Cream 1 APPLIC TOPICAL ×2 (07:56→21:29)
[2021-08-16] MEDS: Juven (unflavored) Packet 1 PACKET PO (07:57)
[2021-08-16] MEDS: Lisinopril 20 MG Tablet PO (07:58)
[2021-08-16] MEDS: Senna Tablet 2 TABLET PO (07:58)
[2021-08-16] MEDS: Carvedilol 12.5 MG Tablet PO ×2 (07:58→21:34)
[2021-08-16] MEDS: NIFEdipine 30 MG Tablet PO (07:59)
[2021-08-16] MEDS: Methenamine Hippurate 1 GM Tablet PO (07:59)
[2021-08-16] MEDS: Potassium Chloride Oral Tablet 20 MEQ PO (08:00)
[2021-08-16] MEDS: APIXABAN 5 MG TABLET PO ×2 (08:00→21:30)
[2021-08-16] MEDS: Finasteride 5 MG Tablet PO (08:00)
[2021-08-16 10:29] VITALS: BMI 34.2
[2021-08-16] MEDS: Ferrous Sulfate 325 MG Tablet PO (12:38)
[2021-08-16] MEDS: Ascorbic Acid 500 MG Tablet 1000 MG PO (12:38)
[2021-08-16] MEDS: Potassium Chloride Oral Tablet 10 MEQ PO (15:55)
[2021-08-16] MEDS: MELATONIN 3 MG TABLET PO (21:30)
[2021-08-16] MEDS: Citalopram 40 MG TABLET PO (21:30)
[2021-08-16] MEDS: Baclofen 10 MG Tablet PO (21:30)
[2021-08-16] MEDS: Tamsulosin HCl 0.4 MG Capsule PO (21:30)
[2021-08-16] MEDS: Atorvastatin Calcium 40 MG Tablet PO (21:31)
[2021-08-16 21:35] VITALS: BP 145/75; PULSE 63; RESP 16; TEMP 36.3; O2SAT 95
[2021-08-16 23:00] VITALS: BMI 34.2
[2021-08-17 06:36] VITALS: BP 142/86; PULSE 75; RESP 16; TEMP 36.7; O2SAT 93
[2021-08-17] MEDS: Gabapentin 300 MG Capsule PO ×2 (06:40→12:53)
[2021-08-17] MEDS: Nystatin Powder 15gm Bottle 1 APPLIC TOPICAL (06:40)
[2021-08-17] MEDS: Acetaminophen 500 MG Tablet 1000 MG PO ×2 (06:40→12:53)
[2021-08-17] MEDS: Nystatin/Triamcin Cream Tube 1 APPLIC TOPICAL ×2 (06:41→12:56)
[2021-08-17] MEDS: Menthol/Lanolin/Calamine/Znox 113 GM Tube 1 APPLIC TOPICAL ×2 (06:41→12:55)
[2021-08-17] MEDS: Ketoconazole Cream 1 APPLIC TOPICAL (08:20)
[2021-08-17] MEDS: Juven (unflavored) Packet 1 PACKET PO (08:21)
[2021-08-17] MEDS: Carvedilol 12.5 MG Tablet PO (08:22)
[2021-08-17] MEDS: APIXABAN 5 MG TABLET PO (08:23)
[2021-08-17] MEDS: Methenamine Hippurate 1 GM Tablet PO (08:23)
[2021-08-17] MEDS: Potassium Chloride Oral Tablet 20 MEQ PO (08:23)
[2021-08-17] MEDS: NIFEdipine 30 MG Tablet PO (08:23)
[2021-08-17] MEDS: Finasteride 5 MG Tablet PO (08:23)
[2021-08-17] MEDS: Senna Tablet 2 TABLET PO (08:23)
[2021-08-17] MEDS: Lisinopril 20 MG Tablet PO (08:23)
[2021-08-17] MEDS: Ascorbic Acid 500 MG Tablet 1000 MG PO (12:53)
[2021-08-17] MEDS: Ferrous Sulfate 325 MG Tablet PO (12:53)
[2021-08-17 15:35] VITALS: BP 110/57; PULSE 62; RESP 16; TEMP 36.6; O2SAT 96
== END 2021-08-17 15:45 | DRG 56 ==
PROVIDERS: Admitting Provider Internal Medicine; PCP Preventive Medicine Occupational Medicine; Visit Provider Internal Medicine
DX: I69.351 Hemiplegia and hemiparesis following cerebral infarction affecting right dominant side (principal); G82.54 Quadriplegia, C5-C7 incomplete; K59.2 Neurogenic bowel, not elsewhere classified; N39.0 Urinary tract infection, site not specified; L89.302 Pressure ulcer of unspecified buttock, stage 2; L89.899 Pressure ulcer of other site, unspecified stage; I48.91 Unspecified atrial fibrillation; I10 Essential (primary) hypertension; I69.320 Aphasia following cerebral infarction; E87.6 Hypokalemia; B96.20 Unspecified Escherichia coli [E. coli] as the cause of diseases classified elsewhere; N40.0 Benign prostatic hyperplasia without lower urinary tract symptoms; D64.9 Anemia, unspecified; I69.322 Dysarthria following cerebral infarction; I69.392 Facial weakness following cerebral infarction; T83.511D Infection and inflammatory reaction due to indwelling urethral catheter, subsequent encounter; N31.9 Neuromuscular dysfunction of bladder, unspecified; F32.A Depression, unspecified; Z79.01 Long term (current) use of anticoagulants; Z79.82 Long term (current) use of aspirin; Z95.0 Presence of cardiac pacemaker; Z79.899 Other long term (current) drug therapy; Z86.718 Personal history of other venous thrombosis and embolism; E66.9 Obesity, unspecified; Z68.35 Body mass index [BMI] 35.0-35.9, adult
CPT/HCPCS: 36415; 80048; 80053; 81001; 82274; 83735; 84100; 85014; 85018; 85025; 85027; 87086; 87088; 87186; 87426; 92507; 92523; 97110; 97112; 97116; 97162; 97166; 97530; 97535; 97802; 97803; J7030; A4216

== ENCOUNTER 2021-08-17 15:53 | Inpatient (IN) | payer MEDICARE, OTHER, SELFPAY ==
--- NOTE | 2021-08-17 16:28 | PCM.HP.STD ---
HPI - General General Date of Admission: 08/17/21 HPI Laura AQUINO, is a 76 Male Inpatient Rehab Unit patient. 07/22/2021 Abrupt change in mental status, neuro exam. CT head showed new left posterior cerebral artery stroke. Not anticoagulated secondary to recent large left middle cerebral artery stroke, with high risk of hemorrhagic conversion. Anticoagulation resumption date 07/26/2021. 07/22/2021 Transfer to [facility]. Left upper extremity weakness resolved, evaluation negative for new stroke, left upper extremity weakness secondary TIA. 07/25/2021 Admit to . 07/28/2021 Keflex for urinary tract infection. 07/31/2021 Eliquis twice daily for atrial fibrillation. 08/01/2021 Keflex x 10 days for E. Coli urinary tract infection. 08/04/2021 IV fluids for dehydration. 08/05/2021 Stop IV fluids, encourage oral fluid intake. 08/06/2021 Pressure ulcers improved, not healed. 08/08/2021 Indwelling starr catheter. 08/10/2021 Stool guaiac positive, Eliquis 5mg twice daily, no aspirin, no plavix. 08/11/2021 Increase potassium supplement to keep potassium above 4. 08/15/2021 Discontinue starr catheter. Ketoconazole cream for candidal balanitis. 08/17/2021 Admit to TCU with debility, here for rehabilitation, strengthening, prior to discharge home with family. FORMERLY [facility], [facility] Medical History AAA (abdominal aortic aneurysm) without rupture Anemia Anterior communicating artery aneurysm Atrial fibrillation Atrial fibrillation BPH (benign prostatic hypertrophy) Central cord syndrome Cervical spinal stenosis Degenerative joint disease (DJD) of lumbar spine Depression Depression Family history of hypertension History of DVT (deep vein thrombosis) History of spinal cord injury Hypertension 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 Neurogenic bladder Neurogenic bowel Neuropathy 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.9) Paraplegia Premature ventricular contractions Prostatic hypertrophy Sick sinus syndrome Sick sinus syndrome Spinal cord injury Subluxation of C6-C7 cervical vertebrae TIA (transient ischemic attack) Home Medications lisinopril 20 mg PO DAILY 06/24/15 [History Last Taken 03/28/19] vitamin E (dl, acetate) 180 mg (400 unit) capsule 400 unit PO DAILY 02/14/18 [History Last Taken 03/28/19] citalopram 40 mg PO QHS 03/29/19 [History Last Taken 03/28/19] aspirin 81 mg PO DAILY 07/18/21 [History Last Taken Unknown] atorvastatin 40 mg PO QHS 07/18/21 [History Last Taken Unknown] baclofen 10 mg PO QHS 07/18/21 [History Last Taken Unknown] carvedilol 12.5 mg PO Q12H 07/18/21 [History Last Taken Unknown] finasteride [Proscar] 5 mg PO DAILY 07/18/21 [History Last Taken Unknown] food supplemt, lactose-reduced 120 ml PO 4X/DAY 07/18/21 [History Last Taken Unknown] melatonin 3 mg PO QHS 07/18/21 [History Last Taken Unknown] methenamine hippurate 1 g PO DAILY 07/18/21 [History Last Taken Unknown] nifedipine 30 mg PO DAILY 07/18/21 [History Last Taken Unknown] nystatin 1 applic TOPICAL BID 07/18/21 [History Last Taken Unknown] tamsulosin 0.4 mg PO QHS 07/18/21 [History Last Taken Unknown] Acidophilus 1 tab PO DAILY 07/25/21 [History Last Taken Unknown] Eliquis 5 mg PO BID 07/25/21 [History Last Taken Unknown] ketoconazole 1 applic TOPICAL BID PRN #60 g 08/15/21 [Rx Last Taken Unknown] acetaminophen 1,000 mg PO Q8 08/17/21 [History Last Taken 08/17/21 12:53] acidophilus-pectin, citrus 1 tab PO DAILY 08/17/21 [History Last Taken Unknown] [id number] [Celestino (with collagen)] 1 packet PO BIDCM 08/17/21 [History Last Taken Unknown] ascorbic acid (vitamin C) 1,000 mg PO LUNCH 08/17/21 [History Last Taken Unknown] ferrous sulfate [FeroSul] 325 mg PO DAILY@1200 08/17/21 [History Last Taken Unknown] gabapentin 300 mg PO TID 08/17/21 [History Last Taken Unknown] menthol-zinc oxide [Calmoseptine] 1 applic TOPICAL TID 08/17/21 [History Last Taken Unknown] nystatin-triamcinolone 1 applic TOPICAL TID 08/17/21 [History Last Taken Unknown] potassium chloride 10 meq PO 1700 08/17/21 [History Last Taken Unknown] potassium chloride 20 meq PO BREAKFAST 08/17/21 [History Last Taken Unknown] sennosides [Dianna-wendi] 2 tab PO DAILY 08/17/21 [History Last Taken Unknown] Allergy/AdvReac Type Severity Reaction Status Date / Time ciprofloxacin [From Cipro] Allergy Hives Verified 07/12/21 09:25 sulfamethoxazole Allergy PT UNSURE Verified 07/12/21 09:25 [From Bactrim] OF REACTION trimethoprim [From Bactrim] Allergy PT UNSURE Verified 07/12/21 09:25 OF REACTION Family History Mother Breast cancer Cancer Brain cancer Sister Diabetes Hypertension CHF (congestive heart failure) Kidney disease Sister CHF (congestive heart failure) Cardiac defibrillator in situ Other Family history of hypertension Surgical History History of neck surgery History of permanent cardiac pacemaker placement S/P cervical spinal fusion Social History household members: spouse Smoking Status: Never smoker alcohol intake: current alcohol intake frequency: holidays/special occasions only Alcohol type: wine substance use type: does not use caffeine: Yes Type: coffee Number of servings: 1 what type of physical activity do you participate in: other details: Health point frequency: 1-2 times per week duration: 45-60 minutes/day seatbelt use: always do you feel safe at home: Yes ROS Constitutional Constitutional: Denies chills, fever(s) or weight gain ENT HEENT: Denies headache(s), nasal congestion or nasal discharge Cardiovascular Cardiovascular: Denies chest pain or palpitations Respiratory/Chest Respiratory/Chest: Denies cough, excessive phlegm production or shortness of breath with exertion Gastrointestinal Gastrointestinal: Denies abdominal pain, nausea or vomiting Genitourinary Genitourinary: Denies dysuria Musculoskeletal Musculoskeletal: Denies joint pain or joint swelling Integumentary Integumentary: Denies rash or wounds Neurologic Neurologic: Denies focal weakness, numbness or tingling Psychiatric Psychiatric: Denies anxiety, auditory hallucinations, depression, homicidal ideation or suicidal ideation Physical Exam Const alert General Appearance: cooperative HEENT normocephalic Eyes PERRL and EOMs intact bilaterally Neck supple, no JVD and no carotid bruits Resp normal respiratory effort, normal air movement and clear to auscultation bilaterally Cardio regular rate and regular rhythm GI normal to inspection, nondistended, normoactive bowel sounds, non-tender and non-distended Extremity normal capillary refill General Extremity: Negative for edema Skin no rashes or lesions noted General Skin Exam: no breakdown Neuro Neuro Narrative: Right hemiparesis. Psych affect normal Appearance: appropriate Results Lab / Micro Data Result Diagrams: 08/18/21 05:26 08/18/21 05:26 Assessment & Plan Assessment/Plan (1) Debility: (2) Change in mental status: (3) Transient ischemic attack: (4) Left middle cerebral artery stroke: (5) Closed C6 fracture: (6) 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: (7) Neurogenic bowel: (8) Neurogenic bladder: (9) Atrial fibrillation: (10) Anterior communicating artery aneurysm: (11) Depression: (12) Hyperlipidemia: (13) Muscle spasm: (14) Iron deficiency anemia: (15) Benign prostate hyperplasia: (16) Neuropathic pain: (17) Insomnia: (18) Recurrent urinary tract infection: (19) Hypokalemia: PLAN: 76 year old male with below past medical history significant for recent left middle cerebral artery stroke, hospitalized for change in mental status secondary to transient ischemic attack, admitted to TCU with debility, here for rehabilitation, strengthening, prior to discharge home with . Debility - PT/OT. Pain - Tylenol 1000mg q8h. Bowel - Senokot 2 tablets daily, Fleet enema pr daily Adult immunization - Administer pneumonia vaccine, covid19 vaccine, flu vaccine as appropriate. DVT prophylaxis - Not necessary, on Eliquis. Iron deficiency anemia - Ferrous sulfate 325mg daily, Vitamin C 1000mg daily. Neuropathic pain - Gabapentin 300mg tid. Seborrhea - Ketoconazole 2% cream topical bid prn. Tinea Corporis - Lotrisone topical tid, Nystatin powder topical bid. Hypokalemia - KCL 20meq daily. Hyperlipidemia - Atorvastatin 40mg qhs. GI prophylaxis - Acidophilus 1 tablet daily. Skin irritation - Calmoseptine topical tid. Nutrition - Celestino 1 packet bidcm. Vitamin E deficiency - Vitamin E 400 iu daily. Hypertension - Coreg 12.5mg bid, Lisinopril 20mg daily, Nifedipine 30mg daily. 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 Insomnia - Melatonin 3mg qhs. Recurrent uti - Urex 1gm daily, Vitamin C 1000mg daily. BPH - Tamsulosin 0.4mg daily, Finasteride 5mg daily. Muscle spasm - Baclofen 10mg qhs. Stroke - Aspirin 81mg daily. Atrial fibrillation - Coreg 12.5mg bid, Nifedipine 30mg daily, Eliquis 5mg bid.
[2021-08-17 17:00] VITALS: BP 117/65; PULSE 60; RESP 16; TEMP 36.9; O2SAT 96
[2021-08-17] MEDS: Carvedilol 12.5 MG Tablet PO (18:19)
[2021-08-17] MEDS: Ensure Clear 120 ML Liquid PO ×2 (18:20→20:27)
[2021-08-17] MEDS: Nystatin Powder 15gm Bottle 1 APPLIC TOPICAL (18:20)
[2021-08-17] MEDS: Juven (unflavored) Packet 1 PACKET PO (20:16)
[2021-08-17] MEDS: Fleet Enema 1 ML RC (20:17)
[2021-08-17] MEDS: APIXABAN 5 MG TABLET PO (20:17)
[2021-08-17] MEDS: Menthol/Lanolin/Calamine/Znox 113 GM Tube 1 APPLIC TOPICAL (20:18)
[2021-08-17] MEDS: Potassium Chloride Oral Tablet 10 MEQ PO (20:18)
[2021-08-17] MEDS: Baclofen 10 MG Tablet PO (20:19)
[2021-08-17] MEDS: Citalopram 40 MG TABLET PO (20:19)
[2021-08-17] MEDS: Tamsulosin HCl 0.4 MG Capsule PO (20:21)
[2021-08-17] MEDS: Atorvastatin Calcium 40 MG Tablet PO (20:21)
[2021-08-17] MEDS: MELATONIN 3 MG TABLET PO (20:21)
[2021-08-17] MEDS: Nystatin/Triamcin Cream Tube 1 APPLIC TOPICAL (20:21)
[2021-08-17] MEDS: Acetaminophen 500 MG Tablet 1000 MG PO (20:22)
[2021-08-17] MEDS: Gabapentin 300 MG Capsule PO (20:27)
[2021-08-17 23:00] VITALS: BMI 35.2
[2021-08-17 23:33] VITALS: PULSE 63; RESP 16; O2SAT 98
[2021-08-18 05:43] LABS: Absolute Lymphocyte Count 0.91 X10^3/uL (0.83-4.51); Absolute Neutrophil Count 4.2 X10^3/uL (2.0-7.7); Basophil# 0.03 X10^3/uL; Basophil% 0.5 % (0-1); Eosinophil# 0.12 X10^3/uL; Eosinophils% 2.1 % (0-5); Hematocrit 34.8 % (40-54); Hemoglobin 11.6 g/dL (13.0-16.5); Lymphocyte # 0.91 X10^3/ul (0.83-4.51); Lymphocyte % 15.6 % (19-41); Mean Corp Hgb Conc 33.3 g/dL (32-36); Mean Corpuscular Hgb 30.5 pg (27.0-32.0); Mean Corpuscular Volume 91.6 fL (80-94); Monocyte# 0.53 X10^3/uL; Monocyte% 9.1 % (0-10); NRBC Flagged by Analyzer 0 % (0-5); Neutrophil # 4.24 X10^3/uL (2.7-7.7); Neutrophil % 72.4 % (47-70); Platelet Count 142 K/mm3 (150-450); RBC Distribution Width CV 15.3 % (11.6-14.6); White Blood Count 5.9 K/mm3 (4.4-11.0)
[2021-08-18] MEDS: Gabapentin 300 MG Capsule PO ×3 (05:49→21:27)
[2021-08-18] MEDS: Menthol/Lanolin/Calamine/Znox 113 GM Tube 1 APPLIC TOPICAL ×3 (05:49→21:26)
[2021-08-18] MEDS: Ensure Clear 120 ML Liquid PO ×4 (05:49→21:40)
[2021-08-18] MEDS: Nystatin/Triamcin Cream Tube 1 APPLIC TOPICAL ×3 (05:50→21:29)
[2021-08-18] MEDS: APIXABAN 5 MG TABLET PO ×2 (05:51→17:35)
[2021-08-18] MEDS: Carvedilol 12.5 MG Tablet PO ×2 (05:51→17:34)
[2021-08-18] MEDS: Methenamine Hippurate 1 GM Tablet PO (05:52)
[2021-08-18] MEDS: Nystatin Powder 15gm Bottle 1 APPLIC TOPICAL ×2 (05:52→17:38)
[2021-08-18] MEDS: NIFEdipine 30 MG Tablet PO (05:52)
[2021-08-18] MEDS: Lisinopril 20 MG Tablet PO (05:53)
[2021-08-18] MEDS: Acetaminophen 500 MG Tablet 1000 MG PO ×3 (05:53→21:28)
[2021-08-18] MEDS: Senna Tablet 2 TABLET PO (05:53)
[2021-08-18] MEDS: Finasteride 5 MG Tablet PO (05:53)
[2021-08-18] MEDS: Vitamin E 400 UNITS Capsule PO (05:54)
[2021-08-18 06:04] LABS: Anion Gap 5 (5-15); BUN 35 mg/dL (7-18); BUN/Creat Ratio 34.3 RATIO (10-20); Calcium,Total 8.9 mg/dL (8.5-10.1); Chloride 111 mmol/L (98-107); Creatinine, Serum 1.02 mg/dL (0.70-1.30); EST Glomerular Filtration Rate 76 mL/min (>60); Est Glom Filt Rate - Afr Amer 92 mL/min (>60); Estimated Creatinine Clearance 60.54 ml/min; Glucose 100 mg/dL (74-106); Sodium Level 140 mmol/L (136-145)
[2021-08-18] MEDS: Juven (unflavored) Packet 1 PACKET PO ×2 (08:35→17:34)
[2021-08-18] MEDS: Potassium Chloride Oral Tablet 20 MEQ PO (08:35)
[2021-08-18] MEDS: Aspirin 81 MG TAB.CHEW PO (08:35)
[2021-08-18] MEDS: Tuberculin,Purif.prot.deriv. 50 TU/ML Vial 0.1 ML ID (09:55)
[2021-08-18] MEDS: Ascorbic Acid 500 MG Tablet 1000 MG PO (12:01)
[2021-08-18] MEDS: Ferrous Sulfate 325 MG Tablet PO (12:01)
[2021-08-18 12:54] VITALS: O2SAT 98
[2021-08-18 14:30] VITALS: BP 105/60; PULSE 63; RESP 16; TEMP 36.7; O2SAT 95
--- NOTE | 2021-08-18 15:17 | CHAPLAIN ---
Type of Pastoral Visit _x__ Initial Visit ___ Follow-up Visit ___ On-call Visit ___ General Patient Visit ___ Spiritual Assessment ___ Family Conference ___ Bereavement ___ Rapid Response ___ Code Blue ___ Other (describe below) Pastoral Care Referral From _x__ Patient ___ Family ___ Nurse ___ Physician ___ Instrument Technician Apprentice ___ Chair Pad Maker ___ Other (describe below) Sacrament/Intervention _x__ Active listening ___ Anointing ___ Sabianist ___ Bereavement ___ Communion ___ Angie exploration ___ ___ Life review _x__ Prayer ___ Reconciliation ___ Sacrament of Sick _x__ Supportive presence ___ Wedding ___ Other (describe below) Pastoral Comments patient is sitting in chair and alert; spouse is with pt; pt able to communicate partially but due to asphasia he could not get out complete sentences; gave further details; pt attends a [employer]; pt welcomes prayer support and presence with follow up later in week or next week
--- NOTE | 2021-08-18 16:20 | NURSING ---
Resident and spouse educated on the COVID 19 Vaccine and do not want the resident to receive it.
[2021-08-18] MEDS: Potassium Chloride Oral Tablet 10 MEQ PO (17:35)
[2021-08-18 19:45] VITALS: PULSE 76; RESP 16; O2SAT 96
[2021-08-18] MEDS: Fleet Enema 1 ML RC (21:25)
[2021-08-18] MEDS: Citalopram 40 MG TABLET PO (21:26)
[2021-08-18] MEDS: Baclofen 10 MG Tablet PO (21:27)
[2021-08-18] MEDS: Tamsulosin HCl 0.4 MG Capsule PO (21:27)
[2021-08-18] MEDS: Atorvastatin Calcium 40 MG Tablet PO (21:28)
[2021-08-18] MEDS: MELATONIN 3 MG TABLET PO (21:28)
--- NOTE | 2021-08-18 23:15 | NURSING ---
Patient voided multiple times and bladder scan still showed 426cc post void. Straight cath done, 600cc urine drained.
[2021-08-19] MEDS: Gabapentin 300 MG Capsule PO ×3 (05:10→22:02)
[2021-08-19] MEDS: Acetaminophen 500 MG Tablet 1000 MG PO ×3 (05:10→22:05)
[2021-08-19] MEDS: Senna Tablet 2 TABLET PO (05:11)
[2021-08-19] MEDS: APIXABAN 5 MG TABLET PO ×2 (05:11→17:17)
[2021-08-19] MEDS: Finasteride 5 MG Tablet PO (05:11)
[2021-08-19] MEDS: NIFEdipine 30 MG Tablet PO (05:11)
[2021-08-19] MEDS: Carvedilol 12.5 MG Tablet PO ×2 (05:11→17:15)
[2021-08-19] MEDS: Menthol/Lanolin/Calamine/Znox 113 GM Tube 1 APPLIC TOPICAL ×3 (05:12→22:02)
[2021-08-19] MEDS: Methenamine Hippurate 1 GM Tablet PO (05:12)
[2021-08-19] MEDS: Vitamin E 400 UNITS Capsule PO (05:12)
[2021-08-19] MEDS: Lisinopril 20 MG Tablet PO (05:12)
[2021-08-19] MEDS: Nystatin Powder 15gm Bottle 1 APPLIC TOPICAL ×2 (05:13→17:18)
[2021-08-19] MEDS: Nystatin/Triamcin Cream Tube 1 APPLIC TOPICAL ×3 (05:13→22:04)
[2021-08-19] MEDS: Ensure Clear 120 ML Liquid PO ×4 (05:18→22:03)
[2021-08-19 05:21] VITALS: BP 142/83; PULSE 68
[2021-08-19] MEDS: Juven (unflavored) Packet 1 PACKET PO ×2 (07:56→17:13)
[2021-08-19] MEDS: Aspirin 81 MG TAB.CHEW PO (07:56)
[2021-08-19] MEDS: Potassium Chloride Oral Tablet 20 MEQ PO (07:56)
--- NOTE | 2021-08-19 08:50 | NURSING ---
Addendum entered by Arabella Monte 08/19/21 09:54: Bladder scanned patient before straight cath a total >380 was noted on scanner. A total of 550cc was drained during straight cath. Urine cloudy and odor noted. Original Note: Urine collected via straight cath. Resident tolerated well, samples sent to lab at this time for analysis.
[2021-08-19 09:00] LABS: Mucous, Urine 0 SEEN /hpf (<or=2+); Red Blood Cells-Urine 0 SEEN /hpf (0-5)
[2021-08-19 09:06] LABS: Color, Urine Yellow (Yellow); Glucose, Dipstick Normal (Normal); Ketone-Dipstick Negative (Negative); Leukocyte Esterase-Dipstick 500 /ul (Negative); Nitrite-Dipstick Positive (Negative); Occult Blood-Urine 50 /ul (Negative); Protein-Dipstick 15 mg/dl (Negative); Specific Gravity, Urine 1.015 (1.002-1.030); Urine Bilirubin Dipstick Negative (Negative); Urine Clarity Cloudy (Clear); Urine Urobilinogen Normal (Normal)
[2021-08-19 09:31] LABS: Bacteria 4+ /hpf (None Seen); Squamous Epithelial Cells - UA 0-5 SEEN /hpf (0-5); White Blood Cells 25-50 SEEN /hpf (0-5)
[2021-08-19] MEDS: Ferrous Sulfate 325 MG Tablet PO (11:54)
[2021-08-19] MEDS: Ascorbic Acid 500 MG Tablet 1000 MG PO (11:55)
--- NOTE | 2021-08-19 12:34 | NURSING ---
Dr. Gallardo updated on pt's urinalysis new order for Cefdinir BID x7 days
--- NOTE | 2021-08-19 13:57 | PCM.PN.RX ---
Progress Note - Pharmacy Subjective: TCU Admission. 76 YOM was on the Inpatient Rehab unit due to history of stroke. Admitted to TCU with debility for rehabilitation and strengthening. Objective: Allergies ciprofloxacin [From Cipro] Allergy (Verified 07/12/21 09:25) Hives sulfamethoxazole [From Bactrim] Allergy (Verified 07/12/21 09:25) PT UNSURE OF REACTION trimethoprim [From Bactrim] Allergy (Verified 07/12/21 09:25) PT UNSURE OF REACTION Current Medications Generic Name Dose Route Start Last Admin Trade Name Freq PRN Reason Stop Dose Admin Acetaminophen 1,000 mg 08/17/21 22:00 08/19/21 05:10 Acetaminophen 500 Mg Tablet PO 1,000 mg Q8 ED Administration Apixaban 5 mg 08/17/21 18:00 08/19/21 05:11 Apixaban 5 Mg Tablet PO 5 mg BID ED Administration Ascorbic Acid 1,000 mg 08/18/21 12:00 08/19/21 11:55 Ascorbic Acid 500 Mg Tablet PO 1,000 mg LUNCH ED Administration Aspirin 81 mg 08/18/21 08:00 08/19/21 07:56 Aspirin 81 Mg Tab.Chew PO 81 mg 0800 ED Administration Atorvastatin Calcium 40 mg 08/17/21 22:00 08/18/21 21:28 Atorvastatin Calcium 40 Mg Tablet PO 40 mg QHS ED Administration Baclofen 10 mg 08/17/21 22:00 08/18/21 21:27 Baclofen 10 Mg Tablet PO 10 mg QHS ED Administration Calamine/Phenol 1 applic 08/17/21 22:00 08/19/21 05:12 Menthol/Lanolin/Calamine/Znox 113 Gm Tube TOPICAL 1 applic TID ED Administration Protocol Carvedilol 12.5 mg 08/17/21 18:00 08/19/21 05:11 Carvedilol 12.5 Mg Tablet PO 12.5 mg Q12 ED Administration Cefdinir 300 mg 08/19/21 18:00 Cefdinir 300 Mg Capsule PO 08/26/21 18:01 Q12 ED Citalopram Hydrobromide 40 mg 08/17/21 22:00 08/18/21 21:26 Citalopram 40 Mg Tablet PO 40 mg QHS ED Administration Ferrous Sulfate 325 mg 08/18/21 12:00 08/19/21 11:54 Ferrous Sulfate 325 Mg Tablet PO 325 mg DAILY@1200 ED Administration Finasteride 5 mg 08/18/21 06:00 08/19/21 05:11 Finasteride 5 Mg Tablet PO 5 mg DAILY ED Administration Gabapentin 300 mg 08/17/21 22:00 08/19/21 05:10 Gabapentin 300 Mg Capsule PO 300 mg TID ED Administration Ketoconazole 1 applic 08/17/21 16:37 Ketoconazole Cream TOPICAL BID PRN seborrheic dermatitis Protocol L-Arginine/L-Glutamine/Calcium HMB 1 packet 08/17/21 17:00 08/19/21 07:56 Celestino (Unflavored) Packet PO 1 packet BIDCM ED Administration Lactobacillus Acidophilus 1 tablet 08/18/21 06:00 08/19/21 05:11 Lactobacillus Acidophilus PO 1 tablet DAILY ED Administration Lisinopril 20 mg 08/18/21 06:00 08/19/21 05:12 Lisinopril 20 Mg Tablet PO 20 mg DAILY ED Administration Melatonin 3 mg 08/17/21 22:00 08/18/21 21:28 Melatonin 3 Mg Tablet PO 3 mg QHS ED Administration Methenamine Hippurate 1 gm 08/18/21 06:00 08/19/21 05:12 Methenamine Hippurate 1 Gm Tablet PO 1 gm DAILY ED Administration Nifedipine 30 mg 08/18/21 06:00 08/19/21 05:11 Nifedipine 30 Mg Tablet PO 30 mg DAILY ED Administration Nutritional Formula (Lactose Free) 120 ml 08/17/21 17:00 08/19/21 11:54 Ensure Clear 120 Ml Liquid PO 120 ml 4X/DAY ED Administration Nystatin 1 applic 08/17/21 18:00 08/19/21 05:13 Nystatin Powder 15gm Bottle TOPICAL 1 applic BID ED Administration Protocol Nystatin/Triamcinolone Acetonide 1 applic 08/17/21 22:00 08/19/21 05:13 Nystatin/Triamcin Cream Tube TOPICAL 1 applic TID ED Administration Protocol Potassium Chloride 10 meq 08/17/21 17:00 08/18/21 17:35 Potassium Chloride Oral Tablet 10 Meq PO 10 meq 1700 ED Administration Potassium Chloride 20 meq 08/18/21 08:00 08/19/21 07:56 Potassium Chloride Oral Tablet 20 Meq PO 20 meq BREAKFAST ED Administration Senna 2 tablet 08/18/21 06:00 08/19/21 05:11 Senna Tablet PO 2 tablet DAILY ED Administration Sodium Biphosphate/Sodium Phosphate 1 bottle 08/18/21 20:00 08/18/21 21:25 Fleet Enema RC 1 bottle DAILY@1999 ED Administration Sodium Chloride 10 - 40 ml 08/17/21 16:53 0.9% Saline Lock 10 Ml Syringe IV UD PRN SALINE FLUSH Tamsulosin HCl 0.4 mg 08/17/21 22:00 08/18/21 21:27 Tamsulosin Hcl 0.4 Mg Capsule PO 0.4 mg QHS ED Administration Tuberculin PPD 0.1 ml 08/25/21 10:00 Tuberculin,Purif.Prot.Deriv. 50 Tu/Ml Vial ID 08/25/21 10:01 X1 ONE Vitamin E 400 units 08/18/21 06:00 08/19/21 05:12 Vitamin E 400 Units Capsule PO 400 units DAILY ED Administration Problem List (Last Reviewed 08/17/21 @ 16:[address] 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 (Acute) Closed C6 fracture (Acute) Left middle cerebral artery stroke (Acute) Transient ischemic attack (Acute) Change in mental status (Acute) Debility (Acute) Vital Signs Temp Pulse Resp BP Pulse Ox 98.1 F 68 16 142/83 H 96 08/18/21 14:30 08/19/21 05:21 08/18/21 19:45 08/19/21 05:21 08/18/21 19:45 Oxygen Delivery Method Room Air Weight: 107.9 kg Body Mass Index (BMI) 35.2 Sodium 140 mmol/L (136-145) 08/18/21 05:26 Potassium 4.0 mmol/L (3.5-5.1) 08/18/21 05:26 Chloride 111 mmol/L (98-107) H 08/18/21 05:26 Carbon Dioxide 24.0 mmol/L (21.0-32.0) 08/18/21 05:26 Anion Gap 5 (5-15) 08/18/21 05:26 BUN 35 mg/dL (7-18) H 08/18/21 05:26 Creatinine 1.02 mg/dL (0.70-1.30) 08/18/21 05:26 Est GFR (MDRD) Af Amer 92 mL/min (>60) 08/18/21 05:26 Est GFR (MDRD) Non-Af 76 mL/min (>60) 08/18/21 05:26 BUN/Creatinine Ratio 34.3 RATIO (10-20) H 08/18/21 05:26 Glucose 100 mg/dL (74-106) 08/18/21 05:26 Assessment/Plan: 1. Pain: acetaminophen 1000mg PO Q8H. Please continue to monitor for increased pain. 2. Bowel: senna 2T PO daily and Fleet enema RC daily. Please continue to monitor for constipation and diarrhea. Resident had a documented BM yesterday. 3. UTI/recurrent UTI: cefdinir 300mg PO Q12 thru 08/26/21, methenamine 1gm PO daily and ascorbic acid 1000mg PO lunch. Please continue to monitor urine culture, renal function and diarrhea. 4. Hypertension/atrial fibrillation: carvedilol 12.5mg PO BID, lisinopril 20mg PO daily, nifedipine 30mg PO daily and apixaban 5mg PO BID. Please continue to monitor for BP (last 142/83), HR (last 68), potassium (last 4mmol/L), cough, renal function, S/S of bleeding and hemoglobin (last 11.6g/dL). 5. Stroke: aspirin 81mg PO BREAKFAST. Please continue to monitor for S/S of bleeding and hemoglobin. 6. Iron deficiency anemia: ferrous sulfate 325mg PO lunch and ascorbic acid 1000mg PO lunch. Please continue to monitor hemoglobin, dark stools and constipation. 7. Hypokalemia: potassium chloride 20mEq PO breakfast and 10mEq PO dinner. Please continue to monitor potassium. 8. BPH: tamsulosin 0.4mg PO QHS and finasteride 5mg PO daily. Please continue to monitor for S/S of BPH and BP. 9. Muscle spasm: baclofen 10mg PO QHS. Please continue to monitor for drowsiness, dizziness, confusion and hypotonia. 10. Insomnia: melatonin 3mg PO QHS. Please continue to monitor for excessive drowsiness. 11. GI prophylaxis: acidophilus 1T PO daily. Please continue to monitor. 12. Vitamin E deficiency: vitamin E 400units PO daily. Please continue to monitor. 13. Seborrhea: ketoconazole 2% cream topical BID PRN seborrheic dermatitis. Please continue to monitor. Psychotropic Medications: 1. Depression: citalopram 40mg PO QHS. Please see physician note regarding GDR. 2. Neuropathic pain: gabapentin 300mg PO TID. Please continue to monitor for pain, renal function and confusion. Using for neuropathic pain. GDR not appropriate. Medication Irregularities: *1. Hyperlipidemia: atorvastatin 40mg PO QHS. Please consider ordering a lipid panel. Resident does not have one in the chart. Thanks. Please continue to monitor for muscle pain. Date of Note:: 08/19/21
[2021-08-19 15:19] VITALS: BP 117/67; PULSE 65; RESP 16; TEMP 36.8; O2SAT 96
[2021-08-19] MEDS: Potassium Chloride Oral Tablet 10 MEQ PO (17:15)
[2021-08-19] MEDS: Cefdinir 300 MG Capsule PO (17:15)
[2021-08-19] MEDS: Fleet Enema 1 ML RC (22:02)
[2021-08-19] MEDS: Citalopram 40 MG TABLET PO (22:03)
[2021-08-19] MEDS: Baclofen 10 MG Tablet PO (22:03)
[2021-08-19] MEDS: Tamsulosin HCl 0.4 MG Capsule PO (22:03)
[2021-08-19] MEDS: Atorvastatin Calcium 40 MG Tablet PO (22:04)
[2021-08-19] MEDS: MELATONIN 3 MG TABLET PO (22:04)
[2021-08-20] MEDS: Lisinopril 20 MG Tablet PO (05:42)
[2021-08-20] MEDS: Gabapentin 300 MG Capsule PO ×3 (05:42→20:26)
[2021-08-20] MEDS: Senna Tablet 2 TABLET PO (05:42)
[2021-08-20] MEDS: Vitamin E 400 UNITS Capsule PO (05:42)
[2021-08-20] MEDS: NIFEdipine 30 MG Tablet PO (05:42)
[2021-08-20] MEDS: Cefdinir 300 MG Capsule PO ×2 (05:42→17:28)
[2021-08-20] MEDS: Acetaminophen 500 MG Tablet 1000 MG PO ×3 (05:42→20:28)
[2021-08-20] MEDS: APIXABAN 5 MG TABLET PO ×2 (05:43→17:27)
[2021-08-20] MEDS: Ensure Clear 120 ML Liquid PO ×3 (05:43→20:26)
[2021-08-20] MEDS: Carvedilol 12.5 MG Tablet PO ×2 (05:43→17:26)
[2021-08-20] MEDS: Nystatin/Triamcin Cream Tube 1 APPLIC TOPICAL ×3 (05:43→20:27)
[2021-08-20] MEDS: Finasteride 5 MG Tablet PO (05:43)
[2021-08-20] MEDS: Methenamine Hippurate 1 GM Tablet PO (05:43)
[2021-08-20] MEDS: Menthol/Lanolin/Calamine/Znox 113 GM Tube 1 APPLIC TOPICAL ×3 (05:44→20:26)
[2021-08-20] MEDS: Nystatin Powder 15gm Bottle 1 APPLIC TOPICAL ×2 (05:44→17:27)
[2021-08-20 05:51] VITALS: BP 129/84; PULSE 59
[2021-08-20] MEDS: Potassium Chloride Oral Tablet 20 MEQ PO (08:22)
[2021-08-20] MEDS: Juven (unflavored) Packet 1 PACKET PO (08:22)
[2021-08-20] MEDS: Aspirin 81 MG TAB.CHEW PO (08:22)
[2021-08-20] MEDS: Ascorbic Acid 500 MG Tablet 1000 MG PO (11:38)
[2021-08-20] MEDS: Ferrous Sulfate 325 MG Tablet PO (11:38)
[2021-08-20 12:18] VITALS: BP 124/69; PULSE 64; RESP 16; TEMP 36.4; O2SAT 96
--- NOTE | 2021-08-20 17:40 | RAD_ITS ---
STUDY: X-RAY - ABDOMEN/PELVIS REASON FOR EXAM: Male, 76 years old. Abdominal pain. TECHNIQUE: 3 AP supine views of the abdomen and pelvis. COMPARISON: None. FINDINGS: Normal visualized lung bases. There are pacemaker wires in the heart There is moderate stool and gaseous distention of the colon. No small bowel dilatation. There is no demonstrated free abdominal air. There is a 0.8 cm right lower abdominal calcification consistent with urinary stone. There are calcified phleboliths in the pelvis. There is degenerative change of the spine. RAD/Abdomen Single View IMPRESSION: Moderate stool and gas in the colon. Electronically Signed: Pasquale Mccurdy MD at 22:24 EDT ,
[2021-08-20] MEDS: Potassium Chloride Oral Tablet 10 MEQ PO (18:10)
[2021-08-20 20:25] VITALS: PULSE 69; RESP 16; O2SAT 93
[2021-08-20] MEDS: Atorvastatin Calcium 40 MG Tablet PO (20:27)
[2021-08-20] MEDS: MELATONIN 3 MG TABLET PO (20:28)
[2021-08-20] MEDS: Citalopram 40 MG TABLET PO (20:30)
[2021-08-20] MEDS: Tamsulosin HCl 0.4 MG Capsule PO (20:30)
[2021-08-20] MEDS: Baclofen 10 MG Tablet PO (20:31)
[2021-08-20] MEDS: Fleet Enema 1 ML RC (22:46)
[2021-08-21 06:42] VITALS: BP 136/69; PULSE 55
[2021-08-21] MEDS: Gabapentin 300 MG Capsule PO ×3 (06:43→21:37)
[2021-08-21] MEDS: Vitamin E 400 UNITS Capsule PO (06:44)
[2021-08-21] MEDS: Methenamine Hippurate 1 GM Tablet PO (06:44)
[2021-08-21] MEDS: Cefdinir 300 MG Capsule PO ×2 (06:44→17:12)
[2021-08-21] MEDS: APIXABAN 5 MG TABLET PO ×2 (06:44→17:12)
[2021-08-21] MEDS: Acetaminophen 500 MG Tablet 1000 MG PO ×3 (06:44→21:37)
[2021-08-21] MEDS: Senna Tablet 2 TABLET PO (06:44)
[2021-08-21] MEDS: NIFEdipine 30 MG Tablet PO (06:44)
[2021-08-21] MEDS: Finasteride 5 MG Tablet PO (06:44)
[2021-08-21] MEDS: Lisinopril 20 MG Tablet PO (06:44)
[2021-08-21] MEDS: Carvedilol 12.5 MG Tablet PO ×2 (06:45→17:12)
[2021-08-21] MEDS: Ensure Clear 120 ML Liquid PO ×4 (06:45→21:38)
[2021-08-21] MEDS: Menthol/Lanolin/Calamine/Znox 113 GM Tube 1 APPLIC TOPICAL ×3 (06:45→21:43)
[2021-08-21] MEDS: Nystatin/Triamcin Cream Tube 1 APPLIC TOPICAL ×3 (06:45→21:37)
[2021-08-21] MEDS: Nystatin Powder 15gm Bottle 1 APPLIC TOPICAL ×2 (06:46→17:13)
[2021-08-21] MEDS: Aspirin 81 MG TAB.CHEW PO (08:11)
[2021-08-21] MEDS: Potassium Chloride Oral Tablet 20 MEQ PO (08:11)
[2021-08-21] MEDS: Juven (unflavored) Packet 1 PACKET PO ×2 (08:12→16:02)
--- NOTE | 2021-08-21 10:03 | CASEMGMT ---
Social Work IDT met with patient, and son for care plan meeting. Discussed patient's progress in PT/OT/ST/SN. Explained Medicare benefit. Encouraged to contact secondary insurance to ensure copay coverage. The goal is for pt to return home at PLOF with assisting. Therapy to schedule times for family training to determine when pt has returned to PLOF and can assist safely at home. Family electing outpatient therapy at [facility] at [place]. SW to continue to follow for DC planning. LIYAH RodriguezW
[2021-08-21] MEDS: Ascorbic Acid 500 MG Tablet 1000 MG PO (11:04)
[2021-08-21] MEDS: Ferrous Sulfate 325 MG Tablet PO (11:04)
[2021-08-21 14:41] VITALS: PULSE 72; RESP 16; O2SAT 94
--- NOTE | 2021-08-21 14:55 | MDS.RN ---
Pain interview for daniela 08/24/21 completed.
[2021-08-21 16:00] VITALS: BP 112/73; PULSE 66; RESP 16; TEMP 36.8; O2SAT 98
[2021-08-21] MEDS: Potassium Chloride Oral Tablet 10 MEQ PO (16:01)
[2021-08-21] MEDS: Fleet Enema 1 ML RC (21:30)
[2021-08-21] MEDS: Tamsulosin HCl 0.4 MG Capsule PO (21:37)
[2021-08-21] MEDS: MELATONIN 3 MG TABLET PO (21:38)
[2021-08-21] MEDS: Baclofen 10 MG Tablet PO (21:38)
[2021-08-21] MEDS: Atorvastatin Calcium 40 MG Tablet PO (21:38)
[2021-08-21] MEDS: Citalopram 40 MG TABLET PO (21:38)
[2021-08-22] MEDS: Acetaminophen 500 MG Tablet 1000 MG PO ×3 (05:56→22:44)
[2021-08-22] MEDS: Ensure Clear 120 ML Liquid PO ×2 (05:56→22:43)
[2021-08-22] MEDS: Vitamin E 400 UNITS Capsule PO (05:56)
[2021-08-22] MEDS: NIFEdipine 30 MG Tablet PO (05:57)
[2021-08-22] MEDS: Lisinopril 20 MG Tablet PO (05:57)
[2021-08-22] MEDS: APIXABAN 5 MG TABLET PO ×2 (05:57→17:32)
[2021-08-22] MEDS: Senna Tablet 2 TABLET PO (05:57)
[2021-08-22] MEDS: Finasteride 5 MG Tablet PO (05:57)
[2021-08-22] MEDS: Cefdinir 300 MG Capsule PO ×2 (05:57→17:33)
[2021-08-22] MEDS: Methenamine Hippurate 1 GM Tablet PO (05:57)
[2021-08-22] MEDS: Carvedilol 12.5 MG Tablet PO ×2 (05:57→17:33)
[2021-08-22] MEDS: Gabapentin 300 MG Capsule PO ×3 (06:00→22:44)
[2021-08-22] MEDS: Nystatin/Triamcin Cream Tube 1 APPLIC TOPICAL ×3 (06:20→22:43)
[2021-08-22] MEDS: Nystatin Powder 15gm Bottle 1 APPLIC TOPICAL ×2 (06:21→17:36)
[2021-08-22] MEDS: Menthol/Lanolin/Calamine/Znox 113 GM Tube 1 APPLIC TOPICAL ×3 (06:21→22:58)
[2021-08-22] MEDS: Aspirin 81 MG TAB.CHEW PO (08:13)
[2021-08-22] MEDS: Juven (unflavored) Packet 1 PACKET PO (08:13)
[2021-08-22] MEDS: Potassium Chloride Oral Tablet 20 MEQ PO (08:16)
[2021-08-22] MEDS: Ferrous Sulfate 325 MG Tablet PO (12:00)
[2021-08-22] MEDS: Ascorbic Acid 500 MG Tablet 1000 MG PO (12:00)
[2021-08-22 15:47] VITALS: BP 102/54; PULSE 58; RESP 18; TEMP 36.6; O2SAT 96
--- NOTE | 2021-08-22 17:26 | CASEMGMT ---
Social Work Brief interview for mental status (BIMS) and resident mood interview (PHQ-9) assessment attempted on this day. Patient unable to answer questions. This social sciences chair attempted to complete assessment with white board, patient having difficulty reading write board and understanding verbal communication. Lola PELLETIER, CORRIE-S
[2021-08-22] MEDS: Potassium Chloride Oral Tablet 10 MEQ PO (17:35)
[2021-08-22 21:50] VITALS: RESP 16
[2021-08-22] MEDS: Atorvastatin Calcium 40 MG Tablet PO (22:43)
[2021-08-22] MEDS: Fleet Enema 1 ML RC (22:43)
[2021-08-22] MEDS: Citalopram 40 MG TABLET PO (22:44)
[2021-08-22] MEDS: Baclofen 10 MG Tablet PO (22:44)
[2021-08-22] MEDS: MELATONIN 3 MG TABLET PO (22:44)
[2021-08-22] MEDS: Tamsulosin HCl 0.4 MG Capsule PO (22:44)
[2021-08-23] MEDS: Ensure Clear 120 ML Liquid PO ×2 (06:33→12:09)
[2021-08-23] MEDS: Cefdinir 300 MG Capsule PO ×2 (06:34→17:24)
[2021-08-23] MEDS: Gabapentin 300 MG Capsule PO ×3 (06:34→22:34)
[2021-08-23] MEDS: Vitamin E 400 UNITS Capsule PO (06:34)
[2021-08-23] MEDS: Acetaminophen 500 MG Tablet 1000 MG PO ×3 (06:34→22:35)
[2021-08-23] MEDS: Finasteride 5 MG Tablet PO (06:34)
[2021-08-23] MEDS: Carvedilol 12.5 MG Tablet PO ×2 (06:34→17:23)
[2021-08-23] MEDS: Nystatin Powder 15gm Bottle 1 APPLIC TOPICAL ×2 (06:35→17:24)
[2021-08-23] MEDS: Methenamine Hippurate 1 GM Tablet PO (06:35)
[2021-08-23] MEDS: Senna Tablet 2 TABLET PO (06:35)
[2021-08-23] MEDS: Lisinopril 20 MG Tablet PO (06:35)
[2021-08-23] MEDS: NIFEdipine 30 MG Tablet PO (06:35)
[2021-08-23] MEDS: APIXABAN 5 MG TABLET PO ×2 (06:35→17:24)
[2021-08-23] MEDS: Menthol/Lanolin/Calamine/Znox 113 GM Tube 1 APPLIC TOPICAL ×3 (06:36→22:37)
[2021-08-23] MEDS: Nystatin/Triamcin Cream Tube 1 APPLIC TOPICAL ×3 (06:36→22:38)
[2021-08-23] MEDS: Potassium Chloride Oral Tablet 20 MEQ PO (09:15)
[2021-08-23] MEDS: Juven (unflavored) Packet 1 PACKET PO ×2 (09:15→17:22)
[2021-08-23] MEDS: Aspirin 81 MG TAB.CHEW PO (09:15)
[2021-08-23] MEDS: Ascorbic Acid 500 MG Tablet 1000 MG PO (12:10)
[2021-08-23] MEDS: Ferrous Sulfate 325 MG Tablet PO (12:10)
[2021-08-23 17:20] VITALS: BP 155/71; PULSE 67; RESP 16; TEMP 36.6; O2SAT 96
[2021-08-23] MEDS: Potassium Chloride Oral Tablet 10 MEQ PO (17:23)
[2021-08-23] MEDS: MELATONIN 3 MG TABLET PO (22:35)
[2021-08-23] MEDS: Tamsulosin HCl 0.4 MG Capsule PO (22:35)
[2021-08-23] MEDS: Citalopram 40 MG TABLET PO (22:36)
[2021-08-23] MEDS: Baclofen 10 MG Tablet PO (22:36)
[2021-08-23] MEDS: Fleet Enema 1 ML RC (22:38)
[2021-08-24] MEDS: Cefdinir 300 MG Capsule PO ×2 (06:54→17:53)
[2021-08-24] MEDS: Senna Tablet 2 TABLET PO (06:54)
[2021-08-24] MEDS: APIXABAN 5 MG TABLET PO ×2 (06:55→17:53)
[2021-08-24] MEDS: Finasteride 5 MG Tablet PO (06:55)
[2021-08-24] MEDS: Carvedilol 12.5 MG Tablet PO ×2 (06:55→17:53)
[2021-08-24] MEDS: Methenamine Hippurate 1 GM Tablet PO (06:56)
[2021-08-24] MEDS: NIFEdipine 30 MG Tablet PO (06:56)
[2021-08-24] MEDS: Vitamin E 400 UNITS Capsule PO (06:56)
[2021-08-24] MEDS: Acetaminophen 500 MG Tablet 1000 MG PO ×3 (06:56→22:51)
[2021-08-24] MEDS: Lisinopril 20 MG Tablet PO (06:56)
[2021-08-24] MEDS: Nystatin Powder 15gm Bottle 1 APPLIC TOPICAL ×2 (06:57→17:56)
[2021-08-24] MEDS: Menthol/Lanolin/Calamine/Znox 113 GM Tube 1 APPLIC TOPICAL ×3 (06:57→23:02)
[2021-08-24] MEDS: Gabapentin 300 MG Capsule PO ×3 (07:00→22:50)
[2021-08-24] MEDS: Ensure Clear 120 ML Liquid PO ×3 (07:01→18:02)
[2021-08-24] MEDS: Aspirin 81 MG TAB.CHEW PO (09:20)
[2021-08-24] MEDS: Potassium Chloride Oral Tablet 20 MEQ PO (09:20)
[2021-08-24] MEDS: Juven (unflavored) Packet 1 PACKET PO ×2 (09:20→17:53)
[2021-08-24] MEDS: Nystatin/Triamcin Cream Tube 1 APPLIC TOPICAL ×3 (09:21→22:49)
[2021-08-24] MEDS: Ferrous Sulfate 325 MG Tablet PO (11:28)
[2021-08-24] MEDS: Ascorbic Acid 500 MG Tablet 1000 MG PO (11:28)
--- NOTE | 2021-08-24 14:52 | NURSING ---
Patient bladder scanned for >387 per scanner. Straight cathed for 250ml dark yellow urine.
[2021-08-24 15:07] VITALS: BP 128/75; PULSE 59; RESP 20; TEMP 36.5; O2SAT 96
[2021-08-24] MEDS: Potassium Chloride Oral Tablet 10 MEQ PO (17:55)
[2021-08-24] MEDS: Citalopram 40 MG TABLET PO (22:50)
[2021-08-24] MEDS: Tamsulosin HCl 0.4 MG Capsule PO (22:50)
[2021-08-24] MEDS: MELATONIN 3 MG TABLET PO (22:50)
[2021-08-24] MEDS: Baclofen 10 MG Tablet PO (22:51)
[2021-08-25 05:58] LABS: Absolute Lymphocyte Count 1.36 X10^3/uL (0.83-4.51); Absolute Neutrophil Count 4.5 X10^3/uL (2.0-7.7); Basophil# 0.02 X10^3/uL; Basophil% 0.3 % (0-1); Eosinophil# 0.14 X10^3/uL; Eosinophils% 2.2 % (0-5); Hematocrit 35.5 % (40-54); Hemoglobin 11.9 g/dL (13.0-16.5); Lymphocyte # 1.36 X10^3/ul (0.83-4.51); Mean Corp Hgb Conc 33.5 g/dL (32-36); Mean Corpuscular Hgb 30.8 pg (27.0-32.0); Mean Platelet Vol. 9.9 fl (6.2-12.0); Monocyte# 0.41 X10^3/uL; Monocyte% 6.3 % (0-10); NRBC Flagged by Analyzer 0 % (0-5); Neutrophil # 4.52 X10^3/uL (2.7-7.7); Neutrophil % 69.7 % (47-70); Platelet Count 163 K/mm3 (150-450); RBC Distribution Width SD 50.6 fl (35.1-43.9); Red Blood Count 3.86 M/mm3 (4.6-6.2); White Blood Count 6.5 K/mm3 (4.4-11.0)
[2021-08-25 06:26] LABS: Anion Gap 6 (5-15); BUN 21 mg/dL (7-18); BUN/Creat Ratio 26.2 RATIO (10-20); Calcium,Total 8.6 mg/dL (8.5-10.1); Chloride 111 mmol/L (98-107); EST Glomerular Filtration Rate 100 mL/min (>60); Est Glom Filt Rate - Afr Amer 121 mL/min (>60); Estimated Creatinine Clearance 77.19 ml/min; Glucose 86 mg/dL (74-106); Potassium 3.7 mmol/L (3.5-5.1); Sodium Level 141 mmol/L (136-145)
[2021-08-25] MEDS: APIXABAN 5 MG TABLET PO ×2 (06:31→16:55)
[2021-08-25] MEDS: Gabapentin 300 MG Capsule PO ×3 (06:31→21:10)
[2021-08-25] MEDS: Vitamin E 400 UNITS Capsule PO (06:31)
[2021-08-25] MEDS: Finasteride 5 MG Tablet PO (06:32)
[2021-08-25] MEDS: Acetaminophen 500 MG Tablet 1000 MG PO ×3 (06:32→21:12)
[2021-08-25] MEDS: Methenamine Hippurate 1 GM Tablet PO (06:33)
[2021-08-25] MEDS: NIFEdipine 30 MG Tablet PO (06:33)
[2021-08-25] MEDS: Cefdinir 300 MG Capsule PO ×2 (06:33→16:55)
[2021-08-25] MEDS: Lisinopril 20 MG Tablet PO (06:33)
[2021-08-25] MEDS: Carvedilol 12.5 MG Tablet PO ×2 (06:33→16:55)
[2021-08-25] MEDS: Menthol/Lanolin/Calamine/Znox 113 GM Tube 1 APPLIC TOPICAL ×3 (06:34→21:11)
[2021-08-25] MEDS: Nystatin Powder 15gm Bottle 1 APPLIC TOPICAL ×2 (06:34→16:55)
[2021-08-25] MEDS: Senna Tablet 2 TABLET PO (06:35)
[2021-08-25] MEDS: Nystatin/Triamcin Cream Tube 1 APPLIC TOPICAL ×3 (06:39→21:15)
[2021-08-25 06:42] VITALS: BP 137/71; PULSE 62
[2021-08-25] MEDS: Potassium Chloride Oral Tablet 20 MEQ PO (08:19)
[2021-08-25] MEDS: Aspirin 81 MG TAB.CHEW PO (08:19)
[2021-08-25] MEDS: Tuberculin,Purif.prot.deriv. 50 TU/ML Vial 0.1 ML ID (10:40)
[2021-08-25] MEDS: Ascorbic Acid 500 MG Tablet 1000 MG PO (12:03)
[2021-08-25] MEDS: Ferrous Sulfate 325 MG Tablet PO (12:03)
[2021-08-25] MEDS: Ensure Clear 120 ML Liquid PO ×3 (12:04→21:10)
--- NOTE | 2021-08-25 13:39 | NURSING ---
Stna Note: MDS section F complete with family input and staff observation.
[2021-08-25 13:42] VITALS: BP 127/80; PULSE 62; RESP 16; TEMP 36.5; O2SAT 96
[2021-08-25] MEDS: Potassium Chloride Oral Tablet 10 MEQ PO (16:55)
[2021-08-25] MEDS: Fleet Enema 1 ML RC (21:10)
[2021-08-25] MEDS: MELATONIN 3 MG TABLET PO (21:12)
[2021-08-25] MEDS: Citalopram 40 MG TABLET PO (21:13)
[2021-08-25] MEDS: Baclofen 10 MG Tablet PO (21:13)
[2021-08-25] MEDS: Atorvastatin Calcium 40 MG Tablet PO (21:13)
[2021-08-25] MEDS: Tamsulosin HCl 0.4 MG Capsule PO (21:13)
[2021-08-26] MEDS: Ensure Clear 120 ML Liquid PO ×4 (05:50→21:23)
[2021-08-26] MEDS: Gabapentin 300 MG Capsule PO ×3 (05:50→21:29)
[2021-08-26] MEDS: Vitamin E 400 UNITS Capsule PO (05:51)
[2021-08-26] MEDS: Senna Tablet 2 TABLET PO (05:51)
[2021-08-26] MEDS: APIXABAN 5 MG TABLET PO ×2 (05:51→17:26)
[2021-08-26] MEDS: Finasteride 5 MG Tablet PO (05:51)
[2021-08-26] MEDS: Methenamine Hippurate 1 GM Tablet PO (05:51)
[2021-08-26] MEDS: Menthol/Lanolin/Calamine/Znox 113 GM Tube 1 APPLIC TOPICAL ×3 (05:51→21:22)
[2021-08-26] MEDS: Acetaminophen 500 MG Tablet 1000 MG PO ×3 (05:51→21:26)
[2021-08-26] MEDS: Cefdinir 300 MG Capsule PO ×2 (05:51→17:26)
[2021-08-26] MEDS: Lisinopril 20 MG Tablet PO (05:51)
[2021-08-26] MEDS: Carvedilol 12.5 MG Tablet PO ×2 (05:51→17:26)
[2021-08-26] MEDS: NIFEdipine 30 MG Tablet PO (05:51)
[2021-08-26] MEDS: Nystatin Powder 15gm Bottle 1 APPLIC TOPICAL ×2 (05:52→17:29)
[2021-08-26] MEDS: Nystatin/Triamcin Cream Tube 1 APPLIC TOPICAL ×3 (05:52→21:30)
[2021-08-26] MEDS: Potassium Chloride Oral Tablet 20 MEQ PO (09:06)
[2021-08-26] MEDS: Aspirin 81 MG TAB.CHEW PO (09:06)
[2021-08-26] MEDS: Ascorbic Acid 500 MG Tablet 1000 MG PO (11:46)
[2021-08-26] MEDS: Ferrous Sulfate 325 MG Tablet PO (11:46)
[2021-08-26 14:30] VITALS: BP 126/75; PULSE 64; RESP 15; TEMP 36.4; O2SAT 96
[2021-08-26] MEDS: Potassium Chloride Oral Tablet 10 MEQ PO (17:26)
[2021-08-26] MEDS: Fleet Enema 1 ML RC (21:22)
[2021-08-26] MEDS: Citalopram 40 MG TABLET PO (21:25)
[2021-08-26] MEDS: MELATONIN 3 MG TABLET PO (21:26)
[2021-08-26] MEDS: Tamsulosin HCl 0.4 MG Capsule PO (21:26)
[2021-08-26] MEDS: Atorvastatin Calcium 40 MG Tablet PO (21:26)
[2021-08-26] MEDS: Baclofen 10 MG Tablet PO (21:26)
[2021-08-27] MEDS: Methenamine Hippurate 1 GM Tablet PO (06:23)
[2021-08-27] MEDS: Senna Tablet 2 TABLET PO (06:23)
[2021-08-27] MEDS: Menthol/Lanolin/Calamine/Znox 113 GM Tube 1 APPLIC TOPICAL ×3 (06:23→20:22)
[2021-08-27] MEDS: Finasteride 5 MG Tablet PO (06:23)
[2021-08-27] MEDS: NIFEdipine 30 MG Tablet PO (06:23)
[2021-08-27] MEDS: APIXABAN 5 MG TABLET PO ×2 (06:23→17:18)
[2021-08-27] MEDS: Nystatin/Triamcin Cream Tube 1 APPLIC TOPICAL ×3 (06:24→20:25)
[2021-08-27] MEDS: Nystatin Powder 15gm Bottle 1 APPLIC TOPICAL ×2 (06:24→17:18)
[2021-08-27] MEDS: Carvedilol 12.5 MG Tablet PO ×2 (06:24→17:18)
[2021-08-27] MEDS: Acetaminophen 500 MG Tablet 1000 MG PO ×3 (06:25→20:25)
[2021-08-27] MEDS: Ensure Clear 120 ML Liquid PO ×4 (06:31→20:29)
[2021-08-27] MEDS: Lisinopril 20 MG Tablet PO (06:33)
[2021-08-27] MEDS: Vitamin E 400 UNITS Capsule PO (06:34)
[2021-08-27] MEDS: Aspirin 81 MG TAB.CHEW PO (08:13)
[2021-08-27] MEDS: Potassium Chloride Oral Tablet 20 MEQ PO (08:13)
[2021-08-27] MEDS: Gabapentin 300 MG Capsule PO ×3 (08:13→20:29)
[2021-08-27] MEDS: Ferrous Sulfate 325 MG Tablet PO (12:25)
[2021-08-27] MEDS: Ascorbic Acid 500 MG Tablet 1000 MG PO (12:25)
[2021-08-27 14:45] VITALS: BP 127/78; PULSE 74; RESP 16; TEMP 36.7; O2SAT 94
[2021-08-27] MEDS: Potassium Chloride Oral Tablet 10 MEQ PO (17:18)
[2021-08-27] MEDS: Fleet Enema 1 ML RC (20:22)
[2021-08-27] MEDS: Citalopram 40 MG TABLET PO (20:23)
[2021-08-27] MEDS: Tamsulosin HCl 0.4 MG Capsule PO (20:24)
[2021-08-27] MEDS: MELATONIN 3 MG TABLET PO (20:24)
[2021-08-27] MEDS: Baclofen 10 MG Tablet PO (20:24)
[2021-08-27] MEDS: Atorvastatin Calcium 40 MG Tablet PO (20:25)
[2021-08-27 22:45] VITALS: PULSE 64; RESP 18
[2021-08-28] MEDS: Gabapentin 300 MG Capsule PO ×3 (05:59→22:07)
[2021-08-28] MEDS: APIXABAN 5 MG TABLET PO ×2 (06:00→17:56)
[2021-08-28] MEDS: Menthol/Lanolin/Calamine/Znox 113 GM Tube 1 APPLIC TOPICAL ×3 (06:00→22:02)
[2021-08-28] MEDS: Carvedilol 12.5 MG Tablet PO ×2 (06:00→17:56)
[2021-08-28] MEDS: Methenamine Hippurate 1 GM Tablet PO (06:01)
[2021-08-28] MEDS: Nystatin Powder 15gm Bottle 1 APPLIC TOPICAL ×2 (06:01→17:54)
[2021-08-28] MEDS: NIFEdipine 30 MG Tablet PO (06:01)
[2021-08-28] MEDS: Nystatin/Triamcin Cream Tube 1 APPLIC TOPICAL ×3 (06:01→22:03)
[2021-08-28] MEDS: Acetaminophen 500 MG Tablet 1000 MG PO ×3 (06:02→22:04)
[2021-08-28] MEDS: Vitamin E 400 UNITS Capsule PO (06:02)
[2021-08-28] MEDS: Senna Tablet 2 TABLET PO (06:02)
[2021-08-28] MEDS: Finasteride 5 MG Tablet PO (06:02)
[2021-08-28] MEDS: Lisinopril 20 MG Tablet PO (06:03)
[2021-08-28] MEDS: Ensure Clear 120 ML Liquid PO ×4 (06:04→22:11)
[2021-08-28] MEDS: Potassium Chloride Oral Tablet 20 MEQ PO (07:50)
[2021-08-28] MEDS: Aspirin 81 MG TAB.CHEW PO (07:50)
[2021-08-28] MEDS: Ascorbic Acid 500 MG Tablet 1000 MG PO (11:36)
[2021-08-28] MEDS: Ferrous Sulfate 325 MG Tablet PO (11:36)
[2021-08-28 14:12] VITALS: BP 106/73; PULSE 59; RESP 16; TEMP 36.3; O2SAT 96
--- NOTE | 2021-08-28 14:47 | NURSING ---
notified patient and of positive covid staff member
--- NOTE | 2021-08-28 14:59 | NURSING ---
notified patient and of positive covid result in staff member today
[2021-08-28] MEDS: Potassium Chloride Oral Tablet 10 MEQ PO (17:57)
[2021-08-28] MEDS: Tamsulosin HCl 0.4 MG Capsule PO (22:02)
[2021-08-28] MEDS: Citalopram 40 MG TABLET PO (22:02)
[2021-08-28] MEDS: Fleet Enema 1 ML RC (22:02)
[2021-08-28] MEDS: Baclofen 10 MG Tablet PO (22:03)
[2021-08-28] MEDS: Atorvastatin Calcium 40 MG Tablet PO (22:03)
[2021-08-28] MEDS: MELATONIN 3 MG TABLET PO (22:03)
[2021-08-29 06:52] VITALS: BP 133/75; PULSE 64
[2021-08-29] MEDS: Vitamin E 400 UNITS Capsule PO (06:54)
[2021-08-29] MEDS: Lisinopril 20 MG Tablet PO (06:54)
[2021-08-29] MEDS: Methenamine Hippurate 1 GM Tablet PO (06:54)
[2021-08-29] MEDS: APIXABAN 5 MG TABLET PO ×2 (06:54→17:06)
[2021-08-29] MEDS: NIFEdipine 30 MG Tablet PO (06:54)
[2021-08-29] MEDS: Acetaminophen 500 MG Tablet 1000 MG PO ×3 (06:54→21:24)
[2021-08-29] MEDS: Ensure Clear 120 ML Liquid PO ×4 (06:54→21:21)
[2021-08-29] MEDS: Finasteride 5 MG Tablet PO (06:54)
[2021-08-29] MEDS: Senna Tablet 2 TABLET PO (06:55)
[2021-08-29] MEDS: Menthol/Lanolin/Calamine/Znox 113 GM Tube 1 APPLIC TOPICAL ×3 (06:55→21:20)
[2021-08-29] MEDS: Carvedilol 12.5 MG Tablet PO ×2 (06:55→17:06)
[2021-08-29] MEDS: Nystatin Powder 15gm Bottle 1 APPLIC TOPICAL ×2 (06:56→17:06)
[2021-08-29] MEDS: Gabapentin 300 MG Capsule PO ×3 (06:56→21:20)
[2021-08-29] MEDS: Potassium Chloride Oral Tablet 20 MEQ PO (07:37)
[2021-08-29] MEDS: Aspirin 81 MG TAB.CHEW PO (07:37)
--- NOTE | 2021-08-29 10:50 | MDS.RN ---
Information for the MDS was obtained from review of the clinical record, interview of resident, staff, and direct observation of resident's care. MDS assessment completed, unable to finalize d/t no PDPM codes generated with completion of assessment. [facility] IT dept, and director community health nursing aware.
[2021-08-29] MEDS: Ascorbic Acid 500 MG Tablet 1000 MG PO (11:34)
[2021-08-29] MEDS: Ferrous Sulfate 325 MG Tablet PO (11:34)
[2021-08-29 15:05] VITALS: BP 124/70; PULSE 73; RESP 16; TEMP 36.3; O2SAT 99
[2021-08-29] MEDS: Potassium Chloride Oral Tablet 10 MEQ PO (17:06)
[2021-08-29] MEDS: Fleet Enema 1 ML RC (21:16)
[2021-08-29] MEDS: Tamsulosin HCl 0.4 MG Capsule PO (21:21)
[2021-08-29] MEDS: Citalopram 40 MG TABLET PO (21:21)
[2021-08-29] MEDS: MELATONIN 3 MG TABLET PO (21:22)
[2021-08-29] MEDS: Baclofen 10 MG Tablet PO (21:23)
[2021-08-29] MEDS: Atorvastatin Calcium 40 MG Tablet PO (21:24)
[2021-08-29 21:45] VITALS: PULSE 69; RESP 16; O2SAT 94
[2021-08-30] MEDS: Ensure Clear 120 ML Liquid PO ×3 (05:36→17:27)
[2021-08-30] MEDS: Acetaminophen 500 MG Tablet 1000 MG PO ×3 (05:36→23:23)
[2021-08-30] MEDS: Senna Tablet 2 TABLET PO (05:37)
[2021-08-30] MEDS: Finasteride 5 MG Tablet PO (05:37)
[2021-08-30] MEDS: NIFEdipine 30 MG Tablet PO (05:37)
[2021-08-30] MEDS: APIXABAN 5 MG TABLET PO ×2 (05:37→17:28)
[2021-08-30] MEDS: Lisinopril 20 MG Tablet PO (05:37)
[2021-08-30] MEDS: Carvedilol 12.5 MG Tablet PO ×2 (05:37→17:27)
[2021-08-30] MEDS: Methenamine Hippurate 1 GM Tablet PO (05:37)
[2021-08-30] MEDS: Vitamin E 400 UNITS Capsule PO (05:37)
[2021-08-30] MEDS: Nystatin Powder 15gm Bottle 1 APPLIC TOPICAL ×2 (05:38→17:30)
[2021-08-30] MEDS: Menthol/Lanolin/Calamine/Znox 113 GM Tube 1 APPLIC TOPICAL ×3 (05:38→23:28)
[2021-08-30 05:41] VITALS: BP 119/69; PULSE 60
[2021-08-30] MEDS: Gabapentin 300 MG Capsule PO ×3 (07:03→23:22)
[2021-08-30] MEDS: Potassium Chloride Oral Tablet 20 MEQ PO (08:29)
[2021-08-30] MEDS: Aspirin 81 MG TAB.CHEW PO (08:29)
[2021-08-30] MEDS: Ferrous Sulfate 325 MG Tablet PO (11:35)
[2021-08-30] MEDS: Ascorbic Acid 500 MG Tablet 1000 MG PO (11:35)
[2021-08-30 16:00] VITALS: BP 122/66; PULSE 68; RESP 18; TEMP 36.6; O2SAT 98
[2021-08-30] MEDS: Potassium Chloride Oral Tablet 10 MEQ PO (17:28)
[2021-08-30] MEDS: Baclofen 10 MG Tablet PO (23:23)
[2021-08-30] MEDS: Tamsulosin HCl 0.4 MG Capsule PO (23:24)
[2021-08-30] MEDS: Citalopram 40 MG TABLET PO (23:25)
[2021-08-30] MEDS: MELATONIN 3 MG TABLET PO (23:25)
[2021-08-30] MEDS: Atorvastatin Calcium 40 MG Tablet PO (23:25)
[2021-08-30] MEDS: Fleet Enema 1 ML RC (23:29)
[2021-08-31] MEDS: Senna Tablet 2 TABLET PO (06:13)
[2021-08-31] MEDS: Ensure Clear 120 ML Liquid PO ×3 (06:13→17:12)
[2021-08-31] MEDS: Gabapentin 300 MG Capsule PO ×3 (06:14→23:34)
[2021-08-31] MEDS: APIXABAN 5 MG TABLET PO ×2 (06:14→17:14)
[2021-08-31] MEDS: Finasteride 5 MG Tablet PO (06:14)
[2021-08-31] MEDS: Acetaminophen 500 MG Tablet 1000 MG PO ×3 (06:14→23:35)
[2021-08-31] MEDS: Methenamine Hippurate 1 GM Tablet PO (06:14)
[2021-08-31] MEDS: Carvedilol 12.5 MG Tablet PO ×2 (06:15→17:15)
[2021-08-31] MEDS: Vitamin E 400 UNITS Capsule PO (06:15)
[2021-08-31] MEDS: NIFEdipine 30 MG Tablet PO (06:15)
[2021-08-31] MEDS: Nystatin Powder 15gm Bottle 1 APPLIC TOPICAL ×2 (06:16→17:15)
[2021-08-31] MEDS: Menthol/Lanolin/Calamine/Znox 113 GM Tube 1 APPLIC TOPICAL ×3 (06:16→23:39)
[2021-08-31] MEDS: Lisinopril 20 MG Tablet PO (06:16)
[2021-08-31] MEDS: Potassium Chloride Oral Tablet 20 MEQ PO (08:56)
[2021-08-31] MEDS: Aspirin 81 MG TAB.CHEW PO (08:57)
[2021-08-31] MEDS: Ferrous Sulfate 325 MG Tablet PO (12:10)
[2021-08-31] MEDS: Ascorbic Acid 500 MG Tablet 1000 MG PO (12:10)
[2021-08-31 15:24] VITALS: BP 121/67; PULSE 62; RESP 16; TEMP 36.5; O2SAT 99
[2021-08-31] MEDS: Potassium Chloride Oral Tablet 10 MEQ PO (17:15)
[2021-08-31] MEDS: Fleet Enema 1 ML RC (23:33)
[2021-08-31] MEDS: Atorvastatin Calcium 40 MG Tablet PO (23:35)
[2021-08-31] MEDS: Tamsulosin HCl 0.4 MG Capsule PO (23:36)
[2021-08-31] MEDS: Baclofen 10 MG Tablet PO (23:36)
[2021-08-31] MEDS: MELATONIN 3 MG TABLET PO (23:37)
[2021-08-31] MEDS: Citalopram 40 MG TABLET PO (23:37)
[2021-09-01 05:52] LABS: Absolute Lymphocyte Count 0.76 X10^3/uL (0.83-4.51); Absolute Neutrophil Count 4.5 X10^3/uL (2.0-7.7); Basophil# 0.02 X10^3/uL; Basophil% 0.3 % (0-1); Eosinophil# 0.08 X10^3/uL; Eosinophils% 1.3 % (0-5); Hematocrit 33.8 % (40-54); Hemoglobin 11.4 g/dL (13.0-16.5); Lymphocyte # 0.76 X10^3/ul (0.83-4.51); Lymphocyte % 12.6 % (19-41); Mean Corp Hgb Conc 33.7 g/dL (32-36); Mean Corpuscular Hgb 30.8 pg (27.0-32.0); Mean Corpuscular Volume 91.4 fL (80-94); Mean Platelet Vol. 10.3 fl (6.2-12.0); Monocyte# 0.63 X10^3/uL; Monocyte% 10.4 % (0-10); NRBC Flagged by Analyzer 0 % (0-5); Neutrophil # 4.54 X10^3/uL (2.7-7.7); Neutrophil % 75.1 % (47-70); Platelet Count 133 K/mm3 (150-450); RBC Distribution Width CV 15.1 % (11.6-14.6); RBC Distribution Width SD 50.6 fl (35.1-43.9); White Blood Count 6.1 K/mm3 (4.4-11.0)
[2021-09-01 06:16] LABS: BUN 21 mg/dL (7-18); BUN/Creat Ratio 24.2 RATIO (10-20); Calcium,Total 8.7 mg/dL (8.5-10.1); Creatinine, Serum 0.87 mg/dL (0.70-1.30); EST Glomerular Filtration Rate 91 mL/min (>60); Est Glom Filt Rate - Afr Amer 110 mL/min (>60); Estimated Creatinine Clearance 70.98 ml/min; Glucose 92 mg/dL (74-106); Sodium Level 140 mmol/L (136-145)
[2021-09-01 06:17] LABS: Anion Gap 7 (5-15); Chloride 110 mmol/L (98-107); Potassium 3.7 mmol/L (3.5-5.1)
[2021-09-01] MEDS: Gabapentin 300 MG Capsule PO ×3 (06:27→20:41)
[2021-09-01] MEDS: Acetaminophen 500 MG Tablet 1000 MG PO ×3 (06:28→20:44)
[2021-09-01] MEDS: NIFEdipine 30 MG Tablet PO (06:28)
[2021-09-01] MEDS: Senna Tablet 2 TABLET PO (06:28)
[2021-09-01] MEDS: Vitamin E 400 UNITS Capsule PO (06:28)
[2021-09-01] MEDS: Lisinopril 20 MG Tablet PO (06:29)
[2021-09-01] MEDS: Methenamine Hippurate 1 GM Tablet PO (06:29)
[2021-09-01] MEDS: Finasteride 5 MG Tablet PO (06:29)
[2021-09-01] MEDS: Carvedilol 12.5 MG Tablet PO ×2 (06:29→17:38)
[2021-09-01] MEDS: APIXABAN 5 MG TABLET PO ×2 (06:30→17:38)
[2021-09-01] MEDS: Menthol/Lanolin/Calamine/Znox 113 GM Tube 1 APPLIC TOPICAL ×3 (06:31→20:42)
[2021-09-01] MEDS: Nystatin Powder 15gm Bottle 1 APPLIC TOPICAL ×2 (06:31→17:38)
[2021-09-01 06:32] VITALS: BP 134/71; PULSE 66
[2021-09-01] MEDS: Aspirin 81 MG TAB.CHEW PO (08:21)
[2021-09-01] MEDS: Potassium Chloride Oral Tablet 20 MEQ PO (08:21)
[2021-09-01 09:36] VITALS: PULSE 62; RESP 16; O2SAT 91
[2021-09-01] MEDS: Ensure Clear 120 ML Liquid PO ×3 (12:24→20:43)
[2021-09-01] MEDS: Ascorbic Acid 500 MG Tablet 1000 MG PO (12:24)
[2021-09-01] MEDS: Ferrous Sulfate 325 MG Tablet PO (12:24)
[2021-09-01 16:17] VITALS: BP 160/58; PULSE 62; RESP 18; TEMP 36.8; O2SAT 91
[2021-09-01] MEDS: Potassium Chloride Oral Tablet 10 MEQ PO (17:38)
[2021-09-01] MEDS: Atorvastatin Calcium 40 MG Tablet PO (20:43)
[2021-09-01] MEDS: Tamsulosin HCl 0.4 MG Capsule PO (20:43)
[2021-09-01] MEDS: Citalopram 40 MG TABLET PO (20:43)
[2021-09-01] MEDS: MELATONIN 3 MG TABLET PO (20:44)
[2021-09-01] MEDS: Baclofen 10 MG Tablet PO (20:44)
[2021-09-01] MEDS: Fleet Enema 1 ML RC (21:44)
[2021-09-02 05:37] VITALS: BP 139/79; PULSE 60
[2021-09-02] MEDS: Acetaminophen 500 MG Tablet 1000 MG PO ×3 (05:39→22:27)
[2021-09-02] MEDS: Menthol/Lanolin/Calamine/Znox 113 GM Tube 1 APPLIC TOPICAL ×3 (05:39→23:22)
[2021-09-02] MEDS: Methenamine Hippurate 1 GM Tablet PO (05:39)
[2021-09-02] MEDS: Carvedilol 12.5 MG Tablet PO ×2 (05:39→17:23)
[2021-09-02] MEDS: APIXABAN 5 MG TABLET PO ×2 (05:39→17:23)
[2021-09-02] MEDS: Senna Tablet 2 TABLET PO (05:40)
[2021-09-02] MEDS: NIFEdipine 30 MG Tablet PO (05:40)
[2021-09-02] MEDS: Lisinopril 20 MG Tablet PO (05:40)
[2021-09-02] MEDS: Vitamin E 400 UNITS Capsule PO (05:40)
[2021-09-02] MEDS: Ensure Clear 120 ML Liquid PO ×4 (05:40→22:27)
[2021-09-02] MEDS: Finasteride 5 MG Tablet PO (05:40)
[2021-09-02] MEDS: Nystatin Powder 15gm Bottle 1 APPLIC TOPICAL ×2 (05:41→17:25)
[2021-09-02] MEDS: Gabapentin 300 MG Capsule PO ×3 (05:41→22:27)
[2021-09-02] MEDS: Aspirin 81 MG TAB.CHEW PO (07:43)
[2021-09-02] MEDS: Potassium Chloride Oral Tablet 20 MEQ PO (07:43)
[2021-09-02] MEDS: Ferrous Sulfate 325 MG Tablet PO (11:43)
[2021-09-02] MEDS: Ascorbic Acid 500 MG Tablet 1000 MG PO (11:43)
[2021-09-02 13:22] VITALS: BP 126/62; PULSE 61; RESP 18; TEMP 36.7; O2SAT 97
--- NOTE | 2021-09-02 16:05 | CHAPLAIN ---
Type of Pastoral Visit ___ Initial Visit _x__ Follow-up Visit ___ On-call Visit ___ General Patient Visit ___ Spiritual Assessment ___ Family Conference ___ Bereavement ___ Rapid Response ___ Code Blue ___ Other (describe below) Pastoral Care Referral From _x__ Patient ___ Family ___ Nurse ___ Physician ___ Marriage Counselor ___ Manager Cardiac Cath ___ Other (describe below) Sacrament/Intervention _x__ Active listening ___ Anointing ___ Yazidi ___ Bereavement ___ Communion ___ Angie exploration ___ ___ Life review _x__ Prayer ___ Reconciliation ___ Sacrament of Sick _x__ Supportive presence ___ Wedding ___ Other (describe below) Pastoral Comments follow up to patient and to his spouse who is in room; pt reports some improvement and has a goal of home for next week; pt still struggles with getting the right words out but overall is able to communicate enough to understand his thoughts; pt welcomes prayer
[2021-09-02] MEDS: Potassium Chloride Oral Tablet 10 MEQ PO (17:22)
[2021-09-02] MEDS: Atorvastatin Calcium 40 MG Tablet PO (22:27)
[2021-09-02] MEDS: Baclofen 10 MG Tablet PO (22:27)
[2021-09-02] MEDS: Tamsulosin HCl 0.4 MG Capsule PO (22:27)
[2021-09-02] MEDS: Citalopram 40 MG TABLET PO (22:27)
[2021-09-02] MEDS: Fleet Enema 1 ML RC (22:28)
[2021-09-02] MEDS: MELATONIN 3 MG TABLET PO (22:28)
[2021-09-02 23:56] VITALS: PULSE 63; RESP 16; O2SAT 95
--- NOTE | 2021-09-03 02:07 | NURSING ---
Patient bladder scanned, with amount noted to be 292. Straight cath output was approximately 100mL in urinal, however, urine was noted to flow out around catheter. Will continue to monitor.
[2021-09-03 05:00] VITALS: BP 120/70; PULSE 56
[2021-09-03] MEDS: Ensure Clear 120 ML Liquid PO ×2 (05:31→12:12)
[2021-09-03] MEDS: Finasteride 5 MG Tablet PO (05:32)
[2021-09-03] MEDS: NIFEdipine 30 MG Tablet PO (05:32)
[2021-09-03] MEDS: Carvedilol 12.5 MG Tablet PO ×2 (05:32→17:42)
[2021-09-03] MEDS: APIXABAN 5 MG TABLET PO ×2 (05:32→17:41)
[2021-09-03] MEDS: Acetaminophen 500 MG Tablet 1000 MG PO ×3 (05:32→21:30)
[2021-09-03] MEDS: Methenamine Hippurate 1 GM Tablet PO (05:32)
[2021-09-03] MEDS: Senna Tablet 2 TABLET PO (05:33)
[2021-09-03] MEDS: Lisinopril 20 MG Tablet PO (05:33)
[2021-09-03] MEDS: Vitamin E 400 UNITS Capsule PO (05:33)
[2021-09-03] MEDS: Menthol/Lanolin/Calamine/Znox 113 GM Tube 1 APPLIC TOPICAL ×3 (05:37→21:31)
[2021-09-03] MEDS: Gabapentin 300 MG Capsule PO ×3 (05:37→21:29)
[2021-09-03] MEDS: Nystatin Powder 15gm Bottle 1 APPLIC TOPICAL ×2 (05:40→17:41)
--- NOTE | 2021-09-03 08:01 | NURSING ---
Bladder scan completed with reading of 322. Attempted to straight cath patient, but did not get any urine out. Requested assistance from Daniel Franco RN, who also attempted to straight cath with no results. Patient does not feel distended through the bladder area. Will continue to monitor.
[2021-09-03] MEDS: Potassium Chloride Oral Tablet 20 MEQ PO (08:20)
[2021-09-03] MEDS: Aspirin 81 MG TAB.CHEW PO (08:21)
[2021-09-03] MEDS: Ferrous Sulfate 325 MG Tablet PO (12:12)
[2021-09-03] MEDS: Ascorbic Acid 500 MG Tablet 1000 MG PO (12:13)
--- NOTE | 2021-09-03 14:33 | CASEMGMT ---
Social Work Son contacted to request DC home 09/07. IDT agreeable. Son requesting [facility] PT/OT/ST and a new hospital bed. [place] [facility] Son to [place] pt. Plan: DC home with family 09/07, [facility] PT/OT/ST, hospital bed Mayela Cole, LIYAH PAULINOW
[2021-09-03 15:03] VITALS: BP 109/57; PULSE 59; RESP 16; TEMP 36.4; O2SAT 95
--- NOTE | 2021-09-03 15:07 | NURSING ---
patient and patient's updated at bedside of positive staff member for covid.
[2021-09-03] MEDS: Potassium Chloride Oral Tablet 10 MEQ PO (17:42)
--- NOTE | 2021-09-03 20:34 | DS.PCM_ITS ---
Providers Date of Admission: 08/17/21 Primary Care Physician: Dr. Tunde Beard DO Reason For Visit: CVA Diagnosis Discharge Diagnosis (1) Debility: Status: Acute Code(s): R53.81 - Other malaise (2) Change in mental status: Status: Acute Code(s): R41.82 - Altered mental status, unspecified (3) Transient ischemic attack: Status: Acute Code(s): G45.9 - Transient cerebral ischemic attack, unspecified (4) Left middle cerebral artery stroke: Status: Deleted Code(s): I63.512 - Cerebral infarction due to unspecified occlusion or stenosis of left middle cerebral artery (5) Closed C6 fracture: Status: Acute Code(s): S12.500A - Unspecified displaced fracture of sixth cervical vertebra, initial encounter for closed fracture (6) 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: Status: Acute Code(s): G82.54 - Quadriplegia, C5-C7 incomplete (7) Neurogenic bowel: Status: Acute Code(s): K59.2 - Neurogenic bowel, not elsewhere classified (8) Neurogenic bladder: Status: Acute Code(s): N31.9 - Neuromuscular dysfunction of bladder, unspecified (9) Atrial fibrillation: Status: Acute Code(s): I48.91 - Unspecified atrial fibrillation (10) Anterior communicating artery aneurysm: Status: Acute Code(s): I67.1 - Cerebral aneurysm, nonruptured (11) Depression: Status: Acute Code(s): F32.A - Depression, unspecified (12) Hyperlipidemia: Status: Acute Code(s): E78.5 - Hyperlipidemia, unspecified (13) Muscle spasm: Status: Acute Code(s): M62.838 - Other muscle spasm (14) Iron deficiency anemia: Status: Acute Code(s): D50.9 - Iron deficiency anemia, unspecified (15) Benign prostate hyperplasia: Status: Acute Code(s): N40.0 - Benign prostatic hyperplasia without lower urinary tract symptoms (16) Neuropathic pain: Status: Acute Code(s): M79.2 - Neuralgia and neuritis, unspecified (17) Insomnia: Status: Acute Code(s): G47.00 - Insomnia, unspecified (18) Recurrent urinary tract infection: Status: Acute Code(s): N39.0 - Urinary tract infection, site not specified (19) Hypokalemia: Status: Acute Code(s): E87.6 - Hypokalemia Plan 76 year old male with below past medical history significant for recent left mi ddle cerebral artery stroke, hospitalized for change in mental status secondary to transient ischemic attack, admitted to TCU with debility, here for rehabilitation, strengthening, prior to discharge home with . * Debility - PT/OT. * Pain - Tylenol 1000mg q8h. * Bowel - Senokot 2 tablets daily, Fleet enema pr daily * Adult immunization - Administer pneumonia vaccine, covid19 vaccine, flu vaccine as appropriate. * DVT prophylaxis - Not necessary, on Eliquis. * Iron deficiency anemia - Ferrous sulfate 325mg daily, Vitamin C 1000mg daily. * Neuropathic pain - Gabapentin 300mg tid. * Seborrhea - Ketoconazole 2% cream topical bid prn. * Tinea Corporis - Lotrisone topical tid, Nystatin powder topical bid. * Hypokalemia - KCL 20meq daily. * Hyperlipidemia - Atorvastatin 40mg qhs. * GI prophylaxis - Acidophilus 1 tablet daily. * Skin irritation - Calmoseptine topical tid. * Nutrition - Celestino 1 packet bidcm. * Vitamin E deficiency - Vitamin E 400 iu daily. * Hypertension - Coreg 12.5mg bid, Lisinopril 20mg daily, Nifedipine 30mg daily. * Depression - Citalopram 40mg daily, stable chronic custodial use, GDR not recommended. * Insomnia - Melatonin 3mg qhs. * Recurrent uti - Urex 1gm daily, Vitamin C 1000mg daily. * BPH - Tamsulosin 0.4mg daily, Finasteride 5mg daily. * Muscle spasm - Baclofen 10mg qhs. * Stroke - Aspirin 81mg daily. * Atrial fibrillation - Coreg 12.5mg bid, Nifedipine 30mg daily, Eliquis 5mg bid. Medications at Discharge Home Medications lisinopril 20 mg tablet 20 mg PO DAILY blood pressure 06/24/15 aspirin 81 mg chewable tablet 81 mg PO DAILY Heart health 07/18/21 melatonin 3 mg tablet 3 mg PO QHS Supplement 07/18/21 nifedipine 30 mg tablet,extended release 30 mg PO DAILY BP 07/18/21 Lactobacillus acidophilus (Acidophilus) 1 tab PO DAILY probiotic 07/25/21 apixaban 5 mg tablet (Eliquis) 5 mg PO BID blood thinner 07/25/21 acetaminophen 500 mg tablet 1,000 mg PO Q8 pain 08/17/21 acidophilus 25 million cell-pectin, citrus 100 mg tablet 1 tab PO DAILY Supplement 08/17/21 ascorbic acid (vitamin C) 500 mg tablet 1,000 mg PO LUNCH supplement 08/17/21 atorvastatin 40 mg tablet 40 mg PO QHS Cholestrol 30 days #30 tabs 09/03/21 baclofen 10 mg tablet 10 mg PO QHS Muscle spasms 30 days #30 tabs 09/03/21 carvedilol 12.5 mg tablet 12.5 mg PO Q12H BP 30 days #60 tabs 09/03/21 citalopram 20 mg tablet 40 mg PO QHS depression 30 days #30 tabs 09/03/21 ferrous sulfate 325 mg (65 mg iron) tablet (FeroSul) 325 mg PO DAILY@1200 supplement 30 days #30 tabs 09/03/21 finasteride 5 mg tablet (Proscar) 5 mg PO DAILY Prostate 30 days #30 tabs 09/03/21 gabapentin 300 mg capsule 300 mg PO TID Nerve pain 30 days #90 caps 09/03/21 methenamine hippurate 1 gram tablet 1 g PO DAILY Supplement 30 days #30 tabs 09/03/21 potassium chloride 10 mEq tablet,extended release(part/cryst) 10 meq PO 1700 supplement 30 days #30 tabs 09/03/21 potassium chloride 20 mEq tablet,extended release 20 meq PO BREAKFAST supplement 30 days #30 tabs 09/03/21 tamsulosin 0.4 mg capsule 0.4 mg PO QHS Urine retention 30 days #30 caps 09/03/21 Hospital Course Operations None Procedures None Summary of Care Provided Minutes Spent on Discharge: 35 Hospital Course: 76 year old male with below past medical history significant for recent left middle cerebral artery stroke, hospitalized for change in mental status secondary to transient ischemic attack, admitted to TCU with debility, here for rehabilitation, strengthening, prior to discharge home with . Discharge home with family 09/07/2021, [facility] PT/OT/ST, Hospital Bed. Physical Exam Const alert General Appearance: cooperative HEENT normocephalic Eyes PERRL and EOMs intact bilaterally Neck supple, no JVD and no carotid bruits Resp normal respiratory effort, normal air movement and clear to auscultation b ilaterally Cardio regular rate and regular rhythm GI normal to inspection, nondistended, normoactive bowel sounds, non-tender and non-distended Extremity normal capillary refill General Extremity: Negative for edema Skin no rashes or lesions noted General Skin Exam: no breakdown Psych affect normal Appearance: appropriate Weight / BMI Weight Weight: 108.182 kg Body Mass Index (BMI) 35.2 ABG / Lab / Microbiology Data Result Diagrams: 09/01/21 05:26 09/01/21 05:26 Microbiology: Microbiology 09/01/21 12:24 Nasal Secretion SARS-CoV-2 Antigen (Rapid) - Final 08/19/21 08:50 Urine Catheter - Catheter Urine Culture - Final Escherichia coli D/C Instructions Discharge Diet: No restrictions Discharge Activity: Return to Normal Activity, May Shower and Use Walker Weight Bearing Status: Weight bearing as tolerated Call your doctor if you observe: Fever of 101 or Higher, Inability to urinate, Inability to have a bowel movement, Shortness of breath, Dizziness, Fainting spells, Swelling in the ankles, Chest pain and Uncontrolled pain Additional Instructions: ischarge home with family 09/07/2021, [employer] [employer] PT/OT/ST, Hospital Bed. Please Follow Up With: Ignacio Quan MD When: As scheduled. Meaningful Use Info Meaningful Use Diagnoses (Choose all that apply): None applicable Discharge Plan Admission Admit Date/Time: 08/17/21 15:53 Primary Reason for Your Visit: Debility. Attending Provider: Luis Carlos Gallardo Chi Primary Care Provider: Tunde Beard Instructions Additional Instructions / Restrictions: ischarge home with family 09/07/2021, [employer] [employer] PT/OT/ST, Hospital Bed. Discharge Orders/Prescriptions Prescriptions: Continued lisinopril 20 MG tablet 20 mg PO DAILY Label Comments: BLOOD PRESSURE melatonin 3 mg Tablet 3 mg PO QHS aspirin 81 mg Tablet,Chewable 81 mg PO DAILY Rx Instructions: . nifedipine 30 mg tablet extended release 30 mg PO DAILY Acidophilus Tablet,Chewable 1 tab PO DAILY Eliquis 5 mg Tablet 5 mg PO BID acetaminophen 500 mg tablet 1,000 mg PO Q8 ascorbic acid (vitamin C) 500 mg tablet 1,000 mg PO LUNCH atorvastatin 40 mg Tablet 40 mg PO QHS 30 Days Qty: 30 0RF carvedilol 12.5 mg Tablet 12.5 mg PO Q12H 30 Days Qty: 60 0RF methenamine hippurate 1 gram Tablet 1 g PO DAILY 30 Days Qty: 30 0RF citalopram 20 MG tablet 40 mg PO QHS 30 Days Qty: 30 0RF tamsulosin 0.4 mg Capsule 0.4 mg PO QHS 30 Days Qty: 30 0RF baclofen 10 mg Tablet 10 mg PO QHS 30 Days Qty: 30 0RF Rx Instructions: . ferrous sulfate [FeroSul] 325 mg (65 mg iron) tablet 325 mg PO DAILY@1200 30 Days Qty: 30 0RF gabapentin 300 mg capsule 300 mg PO TID 30 Days Qty: 90 0RF finasteride [Proscar] 5 mg Tablet 5 mg PO DAILY 30 Days Qty: 30 0RF potassium chloride 10 mEq tablet,ER particles/crystals 10 meq PO 1700 30 Days Qty: 30 0RF potassium chloride 20 mEq tablet extended release 20 meq PO BREAKFAST 30 Days Qty: 30 0RF Discontinued vitamin E (dl, acetate) 400 unit capsule 400 unit PO DAILY nystatin 100,000 unit/gram Powder 1 applic TOPICAL BID food supplemt, lactose-reduced Liquid 120 ml PO 4X/DAY ketoconazole 2 % Cream 1 applic topical BID PRN (Reason: seborrheic dermatitis) Qty: 60 0RF Protocol: *Topical Application Instructions APPLICATION INSTRUCTIONS: face Rx Instructions: apply to the jones and the nasolabial folds for recurrent seborrheic dermatitis sennosides [Dianna-wendi] 8.6 mg tablet 2 tab PO DAILY nystatin-triamcinolone 100,000-0.1 unit/g-% cream 1 applic topical TID Protocol: *Topical Application Instructions APPLICATION INSTRUCTIONS: penile area and around foreskin Rx Instructions: apply to the reddened areas on the glans penis and beneath the foreskin menthol-zinc oxide [Calmoseptine] 0.44-20.6 % ointment 1 applic topical TID Protocol: *Topical Application Instructions APPLICATION INSTRUCTIONS: buttocks Celestino (with collagen) 7-7-1.5 gram powder in packet 1 packet PO BIDCM No Action acidophilus-pectin, citrus 25 million cell -100 mg tablet 1 tab PO DAILY Referrals / Follow Up: Tunde Beard DO [Primary Care Provider] - Disposition Disposition (needs filled in before D/C Order can be placed): Home, Self Care
[2021-09-03] MEDS: Fleet Enema 1 ML RC (21:31)
[2021-09-03] MEDS: Citalopram 40 MG TABLET PO (21:31)
[2021-09-03] MEDS: MELATONIN 3 MG TABLET PO (21:32)
[2021-09-03] MEDS: Tamsulosin HCl 0.4 MG Capsule PO (21:32)
[2021-09-03] MEDS: Baclofen 10 MG Tablet PO (21:32)
[2021-09-04] MEDS: Gabapentin 300 MG Capsule PO ×3 (06:40→21:49)
[2021-09-04] MEDS: Carvedilol 12.5 MG Tablet PO ×2 (06:40→17:09)
[2021-09-04] MEDS: NIFEdipine 30 MG Tablet PO (06:40)
[2021-09-04] MEDS: Finasteride 5 MG Tablet PO (06:41)
[2021-09-04] MEDS: Vitamin E 400 UNITS Capsule PO (06:41)
[2021-09-04] MEDS: Senna Tablet 2 TABLET PO (06:41)
[2021-09-04] MEDS: Lisinopril 20 MG Tablet PO (06:41)
[2021-09-04] MEDS: Methenamine Hippurate 1 GM Tablet PO (06:41)
[2021-09-04] MEDS: APIXABAN 5 MG TABLET PO ×2 (06:41→17:09)
[2021-09-04] MEDS: Menthol/Lanolin/Calamine/Znox 113 GM Tube 1 APPLIC TOPICAL ×3 (06:41→21:45)
[2021-09-04] MEDS: Acetaminophen 500 MG Tablet 1000 MG PO ×3 (06:41→21:46)
[2021-09-04] MEDS: Nystatin Powder 15gm Bottle 1 APPLIC TOPICAL ×2 (06:42→17:11)
[2021-09-04 06:44] VITALS: BP 136/78; PULSE 72
[2021-09-04] MEDS: Potassium Chloride Oral Tablet 20 MEQ PO (08:05)
[2021-09-04] MEDS: Aspirin 81 MG TAB.CHEW PO (08:05)
[2021-09-04] MEDS: Ascorbic Acid 500 MG Tablet 1000 MG PO (11:35)
[2021-09-04] MEDS: Ferrous Sulfate 325 MG Tablet PO (11:35)
[2021-09-04 15:19] VITALS: BP 109/65; PULSE 67; RESP 16; TEMP 36.2; O2SAT 95
[2021-09-04] MEDS: Potassium Chloride Oral Tablet 10 MEQ PO (17:11)
[2021-09-04 21:00] VITALS: PULSE 70; RESP 16; O2SAT 98
[2021-09-04] MEDS: Fleet Enema 1 ML RC (21:44)
[2021-09-04] MEDS: Citalopram 40 MG TABLET PO (21:45)
[2021-09-04] MEDS: Baclofen 10 MG Tablet PO (21:45)
[2021-09-04] MEDS: Tamsulosin HCl 0.4 MG Capsule PO (21:45)
[2021-09-04] MEDS: MELATONIN 3 MG TABLET PO (21:46)
[2021-09-05] MEDS: Vitamin E 400 UNITS Capsule PO (05:57)
[2021-09-05] MEDS: Gabapentin 300 MG Capsule PO ×3 (05:57→22:02)
[2021-09-05] MEDS: Finasteride 5 MG Tablet PO (05:57)
[2021-09-05] MEDS: Carvedilol 12.5 MG Tablet PO ×2 (05:58→17:22)
[2021-09-05] MEDS: APIXABAN 5 MG TABLET PO ×2 (05:58→17:22)
[2021-09-05] MEDS: Senna Tablet 2 TABLET PO (05:58)
[2021-09-05] MEDS: Acetaminophen 500 MG Tablet 1000 MG PO ×3 (05:58→21:59)
[2021-09-05] MEDS: Methenamine Hippurate 1 GM Tablet PO (05:58)
[2021-09-05] MEDS: Lisinopril 20 MG Tablet PO (06:00)
[2021-09-05] MEDS: NIFEdipine 30 MG Tablet PO (06:00)
[2021-09-05] MEDS: Menthol/Lanolin/Calamine/Znox 113 GM Tube 1 APPLIC TOPICAL ×3 (06:01→21:45)
[2021-09-05] MEDS: Nystatin Powder 15gm Bottle 1 APPLIC TOPICAL ×2 (06:01→17:25)
[2021-09-05] MEDS: Aspirin 81 MG TAB.CHEW PO (07:45)
[2021-09-05] MEDS: Potassium Chloride Oral Tablet 20 MEQ PO (07:45)
[2021-09-05] MEDS: Ferrous Sulfate 325 MG Tablet PO (11:28)
[2021-09-05] MEDS: Ascorbic Acid 500 MG Tablet 1000 MG PO (11:28)
[2021-09-05 13:40] VITALS: BP 105/70; PULSE 58; RESP 16; TEMP 36; O2SAT 95
[2021-09-05] MEDS: Potassium Chloride Oral Tablet 10 MEQ PO (17:22)
[2021-09-05 18:43] LABS: Anion Gap 6 (5-15); BNP,B-Type NATRIURETIC PEPTIDE 144.5 pg/mL (0-100); BUN 24 mg/dL (7-18); BUN/Creat Ratio 27.2 RATIO (10-20); Calcium,Total 9.2 mg/dL (8.5-10.1); Chloride 110 mmol/L (98-107); Creatinine, Serum 0.88 mg/dL (0.70-1.30); EST Glomerular Filtration Rate 89 mL/min (>60); Est Glom Filt Rate - Afr Amer 108 mL/min (>60); Estimated Creatinine Clearance 70.17 ml/min; Glucose 99 mg/dL (74-106); Potassium 4.3 mmol/L (3.5-5.1); Sodium Level 139 mmol/L (136-145)
[2021-09-05] MEDS: Tamsulosin HCl 0.4 MG Capsule PO (21:59)
[2021-09-05] MEDS: MELATONIN 3 MG TABLET PO (21:59)
[2021-09-05] MEDS: Citalopram 40 MG TABLET PO (21:59)
[2021-09-05] MEDS: Baclofen 10 MG Tablet PO (21:59)
[2021-09-05] MEDS: Fleet Enema 1 ML RC (22:08)
[2021-09-06 06:30] VITALS: BP 139/69; PULSE 72
[2021-09-06] MEDS: Menthol/Lanolin/Calamine/Znox 113 GM Tube 1 APPLIC TOPICAL ×3 (06:30→22:04)
[2021-09-06] MEDS: Gabapentin 300 MG Capsule PO ×3 (06:30→22:09)
[2021-09-06] MEDS: Finasteride 5 MG Tablet PO (06:31)
[2021-09-06] MEDS: Senna Tablet 2 TABLET PO (06:31)
[2021-09-06] MEDS: Vitamin E 400 UNITS Capsule PO (06:31)
[2021-09-06] MEDS: Acetaminophen 500 MG Tablet 1000 MG PO ×3 (06:31→22:10)
[2021-09-06] MEDS: NIFEdipine 30 MG Tablet PO (06:31)
[2021-09-06] MEDS: Lisinopril 20 MG Tablet PO (06:31)
[2021-09-06] MEDS: APIXABAN 5 MG TABLET PO ×2 (06:31→16:40)
[2021-09-06] MEDS: Methenamine Hippurate 1 GM Tablet PO (06:31)
[2021-09-06] MEDS: Nystatin Powder 15gm Bottle 1 APPLIC TOPICAL ×2 (06:31→16:39)
[2021-09-06 06:54] VITALS: TEMP 37.3
--- NOTE | 2021-09-06 07:10 | NURSING ---
Straight cathed this am for 300ml, urine is cloudy, pt felt warm, oral temp at 99.1, reported to dayshift RN to notify to obtain UA.
[2021-09-06] MEDS: Carvedilol 12.5 MG Tablet PO ×2 (08:48→16:39)
[2021-09-06] MEDS: Potassium Chloride Oral Tablet 20 MEQ PO (08:48)
[2021-09-06] MEDS: Aspirin 81 MG TAB.CHEW PO (08:48)
[2021-09-06] MEDS: Ascorbic Acid 500 MG Tablet 1000 MG PO (11:12)
[2021-09-06] MEDS: Ferrous Sulfate 325 MG Tablet PO (11:13)
[2021-09-06 14:17] VITALS: BP 129/57; PULSE 71; RESP 20; TEMP 37.2; O2SAT 98
--- NOTE | 2021-09-06 15:24 | NURSING ---
Urine collected via straight cath. Patient tolerated well. Urine was dark with strong odor. Specimen sent to lab at this time.
[2021-09-06 15:25] LABS: Mucous, Urine 0 SEEN /hpf (<or=2+)
[2021-09-06 15:44] LABS: Color, Urine Yellow (Yellow); Glucose, Dipstick Normal (Normal); Ketone-Dipstick 5 mg/dl (Negative); Leukocyte Esterase-Dipstick 500 /ul (Negative); Nitrite-Dipstick Negative (Negative); Occult Blood-Urine 250 /ul (Negative); Protein-Dipstick 30 mg/dl (Negative); Specific Gravity, Urine 1.015 (1.002-1.030); Urine Bilirubin Dipstick Negative (Negative); Urine Clarity Cloudy (Clear); Urine Urobilinogen Normal (Normal)
[2021-09-06 16:12] LABS: Bacteria 4+ /hpf (None Seen); Red Blood Cells-Urine 10-25 SEEN /hpf (0-5); Squamous Epithelial Cells - UA 0-5 SEEN /hpf (0-5); White Blood Cells 50-100 SEEN /hpf (0-5)
[2021-09-06] MEDS: Potassium Chloride Oral Tablet 10 MEQ PO (16:39)
[2021-09-06] MEDS: Nitrofurantoin Macrocrystals 100 MG Capsule PO (18:56)
[2021-09-06] MEDS: Fleet Enema 1 ML RC (20:48)
[2021-09-06] MEDS: Tamsulosin HCl 0.4 MG Capsule PO (22:09)
[2021-09-06] MEDS: Baclofen 10 MG Tablet PO (22:09)
[2021-09-06] MEDS: MELATONIN 3 MG TABLET PO (22:09)
[2021-09-06] MEDS: Citalopram 40 MG TABLET PO (22:10)
[2021-09-07] MEDS: Gabapentin 300 MG Capsule PO ×3 (06:19→21:06)
[2021-09-07] MEDS: Acetaminophen 500 MG Tablet 1000 MG PO ×3 (06:20→21:07)
[2021-09-07] MEDS: Nystatin Powder 15gm Bottle 1 APPLIC TOPICAL ×2 (06:20→16:52)
[2021-09-07] MEDS: Senna Tablet 2 TABLET PO (06:20)
[2021-09-07] MEDS: Methenamine Hippurate 1 GM Tablet PO (06:21)
[2021-09-07] MEDS: Nitrofurantoin Macrocrystals 100 MG Capsule PO ×2 (06:21→16:52)
[2021-09-07] MEDS: Finasteride 5 MG Tablet PO (06:21)
[2021-09-07] MEDS: Vitamin E 400 UNITS Capsule PO (06:21)
[2021-09-07] MEDS: Lisinopril 20 MG Tablet PO (06:21)
[2021-09-07] MEDS: NIFEdipine 30 MG Tablet PO (06:21)
[2021-09-07] MEDS: Menthol/Lanolin/Calamine/Znox 113 GM Tube 1 APPLIC TOPICAL ×3 (06:22→21:08)
[2021-09-07] MEDS: APIXABAN 5 MG TABLET PO ×2 (06:22→16:52)
[2021-09-07 06:24] VITALS: BP 139/70; PULSE 66; TEMP 37.1
[2021-09-07] MEDS: Carvedilol 12.5 MG Tablet PO ×2 (08:48→16:52)
[2021-09-07] MEDS: Potassium Chloride Oral Tablet 20 MEQ PO (08:48)
[2021-09-07] MEDS: Aspirin 81 MG TAB.CHEW PO (08:48)
--- NOTE | 2021-09-07 09:35 | NURSING ---
Patient more lethargic and very difficult to transfer. Patient is a heavy 2 assist for transfer. Patient states something isn't right. Increased confusion noted over the past 2 days. Vital signs Temp 97.9 Pulse 72 Resp. 18 SPO2 93% on room air BP 144/69 semi fowlers in right arm. Dr. Gallardo made aware and gave order to send to ED. This nurse will notify to update her on current status.
--- NOTE | 2021-09-07 10:00 | NURSING ---
updated on patient status and transfer to ED. Very appreciative of call and update.
[2021-09-07] MEDS: Ferrous Sulfate 325 MG Tablet PO (13:19)
[2021-09-07] MEDS: Ascorbic Acid 500 MG Tablet 1000 MG PO (13:19)
--- NOTE | 2021-09-07 13:50 | NURSING ---
Patient returned to TCU this afternoon. This nurse spoke to patient and he is much improved. Patient's has been updated on her 's return to the floor and will be in to visit soon.
[2021-09-07 13:52] VITALS: PULSE 72; RESP 18
[2021-09-07 16:00] VITALS: BP 144/69; PULSE 72; RESP 18; TEMP 36.6; O2SAT 93
[2021-09-07] MEDS: Potassium Chloride Oral Tablet 10 MEQ PO (16:52)
[2021-09-07] MEDS: Fleet Enema 1 ML RC (21:04)
[2021-09-07] MEDS: Citalopram 40 MG TABLET PO (21:06)
[2021-09-07] MEDS: Tamsulosin HCl 0.4 MG Capsule PO (21:06)
[2021-09-07] MEDS: Baclofen 10 MG Tablet PO (21:07)
[2021-09-07] MEDS: MELATONIN 3 MG TABLET PO (21:07)
--- NOTE | 2021-09-08 00:05 | ONC.PHONE ---
Received a call from Arnoldo in the lab reporting one blood culture with a preliminary report of gram negative rods.
[2021-09-08 04:12] VITALS: TEMP 37
--- NOTE | 2021-09-08 04:14 | NURSING ---
hemmer lockstitch call this nurse back to room. Back w/ large areas of pink, slightly raised areas. One small area to medial aspect of left upper arm. Face and neck w/ rubor. Temp 98.6. Respirations even and unlabored. In no acute distress. Has no IV access. Will report to oncoming nurse and leave a note on Dr. Gallardo's list.
[2021-09-08 05:45] LABS: Absolute Lymphocyte Count 0.72 X10^3/uL (0.83-4.51); Absolute Neutrophil Count 6.4 X10^3/uL (2.0-7.7); Basophil# 0.04 X10^3/uL; Basophil% 0.5 % (0-1); Eosinophil# 0.18 X10^3/uL; Eosinophils% 2.3 % (0-5); Hematocrit 33.8 % (40-54); Hemoglobin 11.5 g/dL (13.0-16.5); Lymphocyte # 0.72 X10^3/ul (0.83-4.51); Mean Corpuscular Hgb 30.9 pg (27.0-32.0); Mean Corpuscular Volume 90.9 fL (80-94); Mean Platelet Vol. 9.8 fl (6.2-12.0); Monocyte# 0.58 X10^3/uL; Monocyte% 7.3 % (0-10); NRBC Flagged by Analyzer 0 % (0-5); Neutrophil # 6.43 X10^3/uL (2.7-7.7); Neutrophil % 80.6 % (47-70); Platelet Count 139 K/mm3 (150-450); RBC Distribution Width CV 15.2 % (11.6-14.6); RBC Distribution Width SD 51.3 fl (35.1-43.9); Red Blood Count 3.72 M/mm3 (4.6-6.2)
[2021-09-08] MEDS: Menthol/Lanolin/Calamine/Znox 113 GM Tube 1 APPLIC TOPICAL ×3 (06:07→22:13)
[2021-09-08] MEDS: Senna Tablet 2 TABLET PO (06:08)
[2021-09-08] MEDS: Nitrofurantoin Macrocrystals 100 MG Capsule PO ×2 (06:08→17:53)
[2021-09-08] MEDS: Methenamine Hippurate 1 GM Tablet PO (06:09)
[2021-09-08] MEDS: Vitamin E 400 UNITS Capsule PO (06:09)
[2021-09-08] MEDS: Gabapentin 300 MG Capsule PO ×3 (06:09→22:12)
[2021-09-08] MEDS: APIXABAN 5 MG TABLET PO ×2 (06:09→17:53)
[2021-09-08] MEDS: NIFEdipine 30 MG Tablet PO (06:09)
[2021-09-08] MEDS: Lisinopril 20 MG Tablet PO (06:10)
[2021-09-08] MEDS: Finasteride 5 MG Tablet PO (06:10)
[2021-09-08] MEDS: Acetaminophen 500 MG Tablet 1000 MG PO ×3 (06:10→22:14)
[2021-09-08 06:11] VITALS: BP 142/74; PULSE 64
[2021-09-08] MEDS: Nystatin Powder 15gm Bottle 1 APPLIC TOPICAL ×2 (06:11→17:54)
[2021-09-08 06:14] LABS: Anion Gap 8 (5-15); BUN 16 mg/dL (7-18); BUN/Creat Ratio 19.8 RATIO (10-20); Calcium,Total 8.9 mg/dL (8.5-10.1); Chloride 108 mmol/L (98-107); Creatinine, Serum 0.81 mg/dL (0.70-1.30); EST Glomerular Filtration Rate 99 mL/min (>60); Est Glom Filt Rate - Afr Amer 119 mL/min (>60); Estimated Creatinine Clearance 76.23 ml/min; Glucose 99 mg/dL (74-106); Potassium 3.7 mmol/L (3.5-5.1); Sodium Level 139 mmol/L (136-145)
[2021-09-08] MEDS: Aspirin 81 MG TAB.CHEW PO (08:20)
[2021-09-08] MEDS: Carvedilol 12.5 MG Tablet PO ×2 (08:20→17:53)
[2021-09-08] MEDS: Potassium Chloride Oral Tablet 20 MEQ PO (08:21)
[2021-09-08] MEDS: Ferrous Sulfate 325 MG Tablet PO (12:21)
[2021-09-08] MEDS: Ascorbic Acid 500 MG Tablet 1000 MG PO (12:22)
--- NOTE | 2021-09-08 14:21 | CASEMGMT ---
Social Work Spoke with son to discuss on plans for DC. Son would like to see how pt does day-to-day and the results from imaging today. Son to notify SW of new DC date. SW to update Palliative and [facility] on DC dates. Mayela Cole, CORPORATE TRAVEL AGENT [employer]
--- NOTE | 2021-09-08 14:22 | PCM.CONS.GEN ---
Assessment & Plan Assessment/Plan (1) Urinary tract infection: (2) Acute confusion: (3) Bacteremia due to Gram-negative bacteria: PLAN: Recent ecoli uti. Concern now for GNR uti leading to bacteremia. Had rash with ceftriaxone. Will cover with cefepime, plan on 7-10 day course. 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 Transferred to [facility], treated for uti there with keflex for ecoli. Now back to TCU for rehab. 3 days ago, confusion worsened, sent to ED, concern for uti, cxs sent, given ceftriaxone x1. Developed new rash on back and abx stopped. Pt unable to provide history or ROS due to word finding difficulty. 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 Neurogenic bladder Neurogenic bowel Neuropathy 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.9) Paraplegia Premature ventricular contractions Prostatic hypertrophy Sick sinus syndrome Sick sinus syndrome Spinal cord injury Subluxation of C6-C7 cervical vertebrae TIA (transient ischemic attack) Home Medications lisinopril 20 mg tablet 20 mg PO DAILY blood pressure 06/24/15 [History Last Taken 03/28/19] aspirin 81 mg chewable tablet 81 mg PO DAILY Heart health 07/18/21 [History Last Taken Unknown] melatonin 3 mg tablet 3 mg PO QHS Supplement 07/18/21 [History Last Taken Unknown] nifedipine 30 mg tablet,extended release 30 mg PO DAILY BP 07/18/21 [History Last Taken Unknown] Lactobacillus acidophilus (Acidophilus) 1 tab PO DAILY probiotic 07/25/21 [History Last Taken Unknown] apixaban 5 mg tablet (Eliquis) 5 mg PO BID blood thinner 07/25/21 [History Last Taken Unknown] acetaminophen 500 mg tablet 1,000 mg PO Q8 pain 08/17/21 [History Last Taken 08/17/21 12:53] acidophilus 25 million cell-pectin, citrus 100 mg tablet 1 tab PO DAILY Supplement 08/17/21 [History Last Taken Unknown] ascorbic acid (vitamin C) 500 mg tablet 1,000 mg PO LUNCH supplement 08/17/21 [History Last Taken Unknown] baclofen 10 mg tablet 10 mg PO QHS Muscle spasms 30 days #30 tabs 09/03/21 [Rx Last Taken Unknown] carvedilol 12.5 mg tablet 12.5 mg PO Q12H BP 30 days #60 tabs 09/03/21 [Rx Last Taken Unknown] citalopram 20 mg tablet 40 mg PO QHS depression 30 days #30 tabs 09/03/21 [Rx Last Taken Unknown] ferrous sulfate 325 mg (65 mg iron) tablet (FeroSul) 325 mg PO DAILY@1200 supplement 30 days #30 tabs 09/03/21 [Rx Last Taken Unknown] finasteride 5 mg tablet (Proscar) 5 mg PO DAILY Prostate 30 days #30 tabs 09/03/21 [Rx Last Taken Unknown] gabapentin 300 mg capsule 300 mg PO TID Nerve pain 30 days #90 caps 09/03/21 [Rx Last Taken Unknown] methenamine hippurate 1 gram tablet 1 g PO DAILY Supplement 30 days #30 tabs 09/03/21 [Rx Last Taken Unknown] potassium chloride 10 mEq tablet,extended release(part/cryst) 10 meq PO 1700 supplement 30 days #30 tabs 09/03/21 [Rx Last Taken Unknown] potassium chloride 20 mEq tablet,extended release 20 meq PO BREAKFAST supplement 30 days #30 tabs 09/03/21 [Rx Last Taken Unknown] tamsulosin 0.4 mg capsule 0.4 mg PO QHS Urine retention 30 days #30 caps 09/03/21 [Rx Last Taken Unknown] atorvastatin 40 mg tablet 40 mg PO DAILY 09/05/21 [History Last Taken Unknown] nitrofurantoin macrocrystal 100 mg capsule 100 mg PO BID 6 days #12 caps 09/06/21 [Rx Last Taken Unknown] Allergy/AdvReac Type Severity Reaction Status Date / Time ceftriaxone Allergy Rash Verified 09/08/21 08:05 ciprofloxacin [From Cipro] Allergy Hives Verified 09/05/21 15:24 sulfamethoxazole Allergy PT UNSURE Verified 09/05/21 15:24 [From Bactrim] OF REACTION trimethoprim [From Bactrim] Allergy PT UNSURE Verified 09/05/21 15:24 OF REACTION Family History Mother Breast cancer Cancer Brain cancer Sister Diabetes Hypertension CHF (congestive heart failure) Kidney disease Sister CHF (congestive heart failure) Cardiac defibrillator in situ Other Family history of hypertension Surgical History History of neck surgery History of permanent cardiac pacemaker placement S/P cervical spinal fusion Social History household members: spouse Smoking Status: Never smoker alcohol intake: current alcohol intake frequency: holidays/special occasions only Alcohol type: wine substance use type: does not use caffeine: Yes Type: coffee Number of servings: 1 what type of physical activity do you participate in: other details: Health point frequency: 1-2 times per week duration: 45-60 minutes/day seatbelt use: always do you feel safe at home: Yes Physical Exam Const no apparent distress General Appearance: cooperative Orientation / Consciousness: confused HEENT normocephalic and head/scalp atraumatic Eyes PERRL and EOMs intact bilaterally Neck supple Resp normal air movement and clear to auscultation bilaterally Cardio regular rate and regular rhythm GI soft to palpation, non-tender and non-distended Extremity General Extremity: Negative for edema Skin no rashes or lesions noted Neuro Neuro Narrative: word finding difficulty Lab / Micro Data Attestation: I reviewed the patient's lab results. Result Diagrams: 09/08/21 05:36 09/08/21 05:36 Labs: Laboratory Results - last 24 hr 09/08/21 05:36: WBC 8.0, RBC 3.72 L, Hgb 11.5 L, Hct 33.8 L, MCV 90.9, MCH 30.9, MCHC 34.0, RDW Std Deviation 51.3 H, RDW Coeff of Donna 15.2 H, Plt Count 139 L, MPV 9.8, Immature Gran % (Auto) 0.300, Neut % (Auto) 80.6 H, Lymph % (Auto) 9.0 L, Haines % (Auto) 7.3, Eos % (Auto) 2.3, Baso % (Auto) 0.5, Absolute Neuts (auto) 6.4, Absolute Lymphs (auto) 0.72 L, Nucleated RBC % 0 09/08/21 05:36: Sodium 139, Potassium 3.7, Chloride 108 H, Carbon Dioxide 23.0, Anion Gap 8, BUN 16, Creatinine 0.81, Estim Creat Clear Calc 76.23, Est GFR (MDRD) Af Amer 119, Est GFR (MDRD) Non-Af 99, BUN/Creatinine Ratio 19.8, Glucose 99, Calcium 8.9 Micro: Microbiology 09/08/21 12:24 Nasal Secretion SARS-CoV-2 Antigen (Rapid) - Final 09/06/21 15:16 Urine, Random Urine Culture - 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
[2021-09-08 16:00] VITALS: BP 106/64; PULSE 61; RESP 18; TEMP 36.3; O2SAT 96
--- NOTE | 2021-09-08 16:43 | TELEMED_ITS ---
[facility] Tele[facility] has confirmed receipt of a request for visit. This document confirms receipt of the order initiating the consult. To find the results of the consultation, please view the patient's reports for the scanned Telemed Consult.
[2021-09-08] MEDS: Potassium Chloride Oral Tablet 10 MEQ PO (17:53)
--- NOTE | 2021-09-08 19:02 | NURSING ---
Pt had Tele neurology consult completed. Dr. Gallardo called with new orders to Hold Eliquis for 1 week and Repeat MRI of brain without contrast on 09/15/21.
[2021-09-08 19:40] VITALS: PULSE 63; RESP 16; O2SAT 94
[2021-09-08] MEDS: Fleet Enema 1 ML RC (22:12)
[2021-09-08] MEDS: MELATONIN 3 MG TABLET PO (22:12)
[2021-09-08] MEDS: Citalopram 40 MG TABLET PO (22:13)
[2021-09-08] MEDS: Tamsulosin HCl 0.4 MG Capsule PO (22:13)
[2021-09-08] MEDS: Baclofen 10 MG Tablet PO (22:13)
[2021-09-09] MEDS: 0.9% Saline Lock 10 ML Syringe IV ×2 (05:26→21:30)
[2021-09-09] MEDS: Gabapentin 300 MG Capsule PO ×3 (05:31→21:35)
[2021-09-09] MEDS: Vitamin E 400 UNITS Capsule PO (05:31)
[2021-09-09] MEDS: Finasteride 5 MG Tablet PO (05:32)
[2021-09-09] MEDS: Nitrofurantoin Macrocrystals 100 MG Capsule PO ×2 (05:32→17:37)
[2021-09-09] MEDS: NIFEdipine 30 MG Tablet PO (05:32)
[2021-09-09] MEDS: Methenamine Hippurate 1 GM Tablet PO (05:32)
[2021-09-09] MEDS: Acetaminophen 500 MG Tablet 1000 MG PO ×3 (05:32→21:35)
[2021-09-09] MEDS: Senna Tablet 2 TABLET PO (05:32)
[2021-09-09] MEDS: Lisinopril 20 MG Tablet PO (05:32)
[2021-09-09] MEDS: Nystatin Powder 15gm Bottle 1 APPLIC TOPICAL ×2 (05:33→17:38)
[2021-09-09] MEDS: Menthol/Lanolin/Calamine/Znox 113 GM Tube 1 APPLIC TOPICAL ×3 (05:33→21:34)
[2021-09-09 05:36] VITALS: BP 121/71; PULSE 69
[2021-09-09] MEDS: Potassium Chloride Oral Tablet 20 MEQ PO (09:42)
[2021-09-09] MEDS: Aspirin 81 MG TAB.CHEW PO (09:42)
--- NOTE | 2021-09-09 10:09 | PCM.PN.ID ---
Physical Exam Narrative Feeling ok, no fever, overall doing better Const alert and no apparent distress Resp normal air movement and clear to auscultation bilaterally Cardio regular rate and regular rhythm GI non-tender and non-distended Skin no rashes or lesions noted ID ID: Route of nutrition/ use of supplements: [] Nutritional Intake: [] IV Site: [] Mejía Catheter: [] Assessment & Plan Assessment/Plan (1) Urinary tract infection: (2) Acute confusion: (3) Bacteremia due to Gram-negative bacteria: PLAN: Recent ecoli uti. Concern now for GNR uti leading to bacteremia but bcx with ecoli and Ucx with 25-50k pseudomonas-like. Had rash with ceftriaxone. Cont cefepime, plan on 7-10 day course. Will follow
[2021-09-09] MEDS: Ferrous Sulfate 325 MG Tablet PO (11:32)
[2021-09-09] MEDS: Ascorbic Acid 500 MG Tablet 1000 MG PO (11:32)
[2021-09-09 13:43] VITALS: BP 123/71; PULSE 69; RESP 18; TEMP 36.6; O2SAT 98
--- NOTE | 2021-09-09 15:09 | NURSING ---
coreg held d/t low BP this AM, pt reports being very tired. dr whaley updated, no new orders. continue plan of care.
[2021-09-09] MEDS: Potassium Chloride Oral Tablet 10 MEQ PO (17:37)
[2021-09-09 21:30] VITALS: PULSE 64; RESP 16; O2SAT 97
[2021-09-09] MEDS: Fleet Enema 1 ML RC (21:34)
[2021-09-09] MEDS: Citalopram 40 MG TABLET PO (21:35)
[2021-09-09] MEDS: MELATONIN 3 MG TABLET PO (21:35)
[2021-09-09] MEDS: Baclofen 10 MG Tablet PO (21:35)
[2021-09-09] MEDS: Tamsulosin HCl 0.4 MG Capsule PO (21:35)
[2021-09-10] MEDS: Methenamine Hippurate 1 GM Tablet PO (06:30)
[2021-09-10] MEDS: Lisinopril 20 MG Tablet PO (06:30)
[2021-09-10] MEDS: Gabapentin 300 MG Capsule PO ×2 (06:30→21:44)
[2021-09-10] MEDS: Finasteride 5 MG Tablet PO (06:30)
[2021-09-10] MEDS: NIFEdipine 30 MG Tablet PO (06:30)
[2021-09-10] MEDS: Nitrofurantoin Macrocrystals 100 MG Capsule PO ×2 (06:30→17:06)
[2021-09-10] MEDS: Senna Tablet 2 TABLET PO (06:30)
[2021-09-10] MEDS: Acetaminophen 500 MG Tablet 1000 MG PO ×2 (06:31→21:44)
[2021-09-10] MEDS: Vitamin E 400 UNITS Capsule PO (06:31)
[2021-09-10] MEDS: Nystatin Powder 15gm Bottle 1 APPLIC TOPICAL ×2 (06:32→17:04)
[2021-09-10] MEDS: Menthol/Lanolin/Calamine/Znox 113 GM Tube 1 APPLIC TOPICAL ×3 (06:32→22:00)
[2021-09-10 06:39] VITALS: BP 145/73; PULSE 74; TEMP 37.4; O2SAT 94
--- NOTE | 2021-09-10 08:00 | NURSING ---
Temperature recheck 98.2 this am.
[2021-09-10] MEDS: Aspirin 81 MG TAB.CHEW PO (08:09)
[2021-09-10] MEDS: Potassium Chloride Oral Tablet 20 MEQ PO (08:09)
[2021-09-10] MEDS: Carvedilol 12.5 MG Tablet PO ×2 (08:09→17:05)
[2021-09-10 08:19] VITALS: PULSE 74; RESP 16
[2021-09-10] MEDS: Ascorbic Acid 500 MG Tablet 1000 MG PO (12:45)
[2021-09-10] MEDS: Ferrous Sulfate 325 MG Tablet PO (12:45)
[2021-09-10 14:11] VITALS: BP 115/63; PULSE 68; RESP 16; TEMP 36.6; O2SAT 96
--- NOTE | 2021-09-10 15:02 | NURSING ---
Page to Dr. Gallardo pt having waves of nausea off and on this afternoon. Compazine ordered
[2021-09-10 16:00] VITALS: BP 116/70; PULSE 64; RESP 16; TEMP 36.8; O2SAT 96
[2021-09-10] MEDS: proCHLORPERazine 5 MG Tablet PO (17:04)
[2021-09-10] MEDS: Potassium Chloride Oral Tablet 10 MEQ PO (17:06)
[2021-09-10] MEDS: Tamsulosin HCl 0.4 MG Capsule PO (21:44)
[2021-09-10] MEDS: MELATONIN 3 MG TABLET PO (21:44)
[2021-09-10] MEDS: Citalopram 40 MG TABLET PO (21:45)
[2021-09-10] MEDS: Fleet Enema 1 ML RC (21:45)
[2021-09-10] MEDS: Baclofen 10 MG Tablet PO (21:45)
[2021-09-10] MEDS: 0.9% Saline Lock 10 ML Syringe IV (22:56)
[2021-09-11] MEDS: 0.9% Saline Lock 10 ML Syringe IV ×5 (00:38→22:44)
[2021-09-11] MEDS: Gabapentin 300 MG Capsule PO ×3 (06:32→22:00)
[2021-09-11] MEDS: Finasteride 5 MG Tablet PO (06:40)
[2021-09-11] MEDS: Methenamine Hippurate 1 GM Tablet PO (06:40)
[2021-09-11] MEDS: Acetaminophen 500 MG Tablet 1000 MG PO ×3 (06:40→22:01)
[2021-09-11] MEDS: Nitrofurantoin Macrocrystals 100 MG Capsule PO ×2 (06:40→18:10)
[2021-09-11] MEDS: Senna Tablet 2 TABLET PO (06:40)
[2021-09-11] MEDS: Lisinopril 20 MG Tablet PO (06:40)
[2021-09-11] MEDS: NIFEdipine 30 MG Tablet PO (06:41)
[2021-09-11] MEDS: Menthol/Lanolin/Calamine/Znox 113 GM Tube 1 APPLIC TOPICAL ×3 (06:41→22:01)
[2021-09-11] MEDS: Nystatin Powder 15gm Bottle 1 APPLIC TOPICAL ×2 (06:41→18:12)
[2021-09-11] MEDS: Vitamin E 400 UNITS Capsule PO (06:42)
[2021-09-11] MEDS: Carvedilol 12.5 MG Tablet PO ×2 (08:39→18:10)
[2021-09-11] MEDS: Aspirin 81 MG TAB.CHEW PO (08:39)
[2021-09-11] MEDS: Potassium Chloride Oral Tablet 20 MEQ PO (08:39)
[2021-09-11 08:41] VITALS: BP 136/75; PULSE 72
--- NOTE | 2021-09-11 11:10 | NURSING ---
Family notified of covid positive pt on unit.
[2021-09-11] MEDS: Ascorbic Acid 500 MG Tablet 1000 MG PO (12:03)
[2021-09-11] MEDS: Ferrous Sulfate 325 MG Tablet PO (12:03)
[2021-09-11 16:00] VITALS: BP 107/67; PULSE 66; RESP 16; TEMP 37.1; O2SAT 95
[2021-09-11] MEDS: Potassium Chloride Oral Tablet 10 MEQ PO (18:11)
[2021-09-11 22:00] VITALS: PULSE 64; RESP 18; O2SAT 98
[2021-09-11] MEDS: Baclofen 10 MG Tablet PO (22:01)
[2021-09-11] MEDS: Tamsulosin HCl 0.4 MG Capsule PO (22:01)
[2021-09-11] MEDS: MELATONIN 3 MG TABLET PO (22:02)
[2021-09-11] MEDS: Citalopram 40 MG TABLET PO (22:02)
[2021-09-11] MEDS: Fleet Enema 1 ML RC (22:02)
[2021-09-12] MEDS: 0.9% Saline Lock 10 ML Syringe IV ×2 (06:33→13:20)
[2021-09-12] MEDS: Gabapentin 300 MG Capsule PO ×3 (06:35→22:22)
[2021-09-12] MEDS: Senna Tablet 2 TABLET PO (06:38)
[2021-09-12] MEDS: Lisinopril 20 MG Tablet PO (06:38)
[2021-09-12] MEDS: Vitamin E 400 UNITS Capsule PO (06:38)
[2021-09-12] MEDS: Nitrofurantoin Macrocrystals 100 MG Capsule PO ×2 (06:38→18:43)
[2021-09-12] MEDS: Methenamine Hippurate 1 GM Tablet PO (06:38)
[2021-09-12] MEDS: Acetaminophen 500 MG Tablet 1000 MG PO ×3 (06:38→22:22)
[2021-09-12] MEDS: Finasteride 5 MG Tablet PO (06:38)
[2021-09-12] MEDS: NIFEdipine 30 MG Tablet PO (06:38)
[2021-09-12] MEDS: Menthol/Lanolin/Calamine/Znox 113 GM Tube 1 APPLIC TOPICAL ×3 (06:39→22:19)
[2021-09-12] MEDS: Nystatin Powder 15gm Bottle 1 APPLIC TOPICAL ×2 (06:39→17:22)
[2021-09-12 07:46] VITALS: BP 161/89; PULSE 68
[2021-09-12] MEDS: Potassium Chloride Oral Tablet 20 MEQ PO (08:16)
[2021-09-12] MEDS: Aspirin 81 MG TAB.CHEW PO (08:16)
[2021-09-12] MEDS: Carvedilol 12.5 MG Tablet PO ×2 (08:16→17:21)
[2021-09-12] MEDS: Ferrous Sulfate 325 MG Tablet PO (11:29)
[2021-09-12] MEDS: Ascorbic Acid 500 MG Tablet 1000 MG PO (11:29)
--- NOTE | 2021-09-12 12:57 | PCM.PN.ID ---
Physical Exam Narrative Feeling well, no fever, no abd pain, no n/v/d. Const alert and no apparent distress Resp normal air movement and clear to auscultation bilaterally Cardio regular rate and regular rhythm GI soft to palpation, non-tender and non-distended Skin no rashes or lesions noted ID ID: Route of nutrition/ use of supplements: [] Nutritional Intake: [] IV Site: [] Mejía Catheter: [] Assessment & Plan Assessment/Plan (1) Urinary tract infection: (2) Acute confusion: (3) Bacteremia due to Gram-negative bacteria: PLAN: Recent ecoli uti. Now with ecoli bacteremia and Ucx with 25-50k pseudomonas. Had rash with ceftriaxone. Cont cefepime, plan on 10 day course, stop date in EMR order. Will follow
[2021-09-12 14:27] VITALS: PULSE 64; RESP 16; O2SAT 95
[2021-09-12 14:42] VITALS: BP 145/75; PULSE 64; RESP 16; TEMP 36.6; O2SAT 95
[2021-09-12] MEDS: Potassium Chloride Oral Tablet 10 MEQ PO (17:21)
[2021-09-12] MEDS: Fleet Enema 1 ML RC (22:19)
[2021-09-12] MEDS: Tamsulosin HCl 0.4 MG Capsule PO (22:20)
[2021-09-12] MEDS: Citalopram 40 MG TABLET PO (22:20)
[2021-09-12] MEDS: Baclofen 10 MG Tablet PO (22:21)
[2021-09-12] MEDS: MELATONIN 3 MG TABLET PO (22:21)
[2021-09-13] MEDS: 0.9% Saline Lock 10 ML Syringe IV (05:19)
[2021-09-13] MEDS: Nitrofurantoin Macrocrystals 100 MG Capsule PO (05:23)
[2021-09-13] MEDS: Methenamine Hippurate 1 GM Tablet PO (05:23)
[2021-09-13] MEDS: Gabapentin 300 MG Capsule PO ×3 (05:23→22:23)
[2021-09-13] MEDS: NIFEdipine 30 MG Tablet PO (05:23)
[2021-09-13] MEDS: Vitamin E 400 UNITS Capsule PO (05:24)
[2021-09-13] MEDS: Acetaminophen 500 MG Tablet 1000 MG PO ×3 (05:24→22:18)
[2021-09-13] MEDS: Senna Tablet 2 TABLET PO (05:24)
[2021-09-13] MEDS: Finasteride 5 MG Tablet PO (05:24)
[2021-09-13] MEDS: Lisinopril 20 MG Tablet PO (05:24)
[2021-09-13] MEDS: Nystatin Powder 15gm Bottle 1 APPLIC TOPICAL ×2 (05:25→17:33)
[2021-09-13] MEDS: Menthol/Lanolin/Calamine/Znox 113 GM Tube 1 APPLIC TOPICAL ×3 (05:25→22:17)
[2021-09-13] MEDS: Aspirin 81 MG TAB.CHEW PO (08:22)
[2021-09-13] MEDS: Carvedilol 12.5 MG Tablet PO ×2 (08:22→17:31)
[2021-09-13] MEDS: Potassium Chloride Oral Tablet 20 MEQ PO (08:22)
[2021-09-13] MEDS: Ascorbic Acid 500 MG Tablet 1000 MG PO (12:19)
[2021-09-13] MEDS: Ferrous Sulfate 325 MG Tablet PO (12:20)
--- NOTE | 2021-09-13 12:48 | NURSING ---
Patients in room, she has been updated on staff member testing positive for covid.
[2021-09-13 16:00] VITALS: BP 124/68; PULSE 61; RESP 15; TEMP 36.5; O2SAT 98
[2021-09-13] MEDS: Potassium Chloride Oral Tablet 10 MEQ PO (17:00)
[2021-09-13] MEDS: Fleet Enema 1 ML RC (22:17)
[2021-09-13] MEDS: Citalopram 40 MG TABLET PO (22:19)
[2021-09-13] MEDS: MELATONIN 3 MG TABLET PO (22:19)
[2021-09-13] MEDS: Tamsulosin HCl 0.4 MG Capsule PO (22:20)
[2021-09-13] MEDS: Baclofen 10 MG Tablet PO (22:20)
[2021-09-13 23:27] VITALS: RESP 18
[2021-09-14] MEDS: Gabapentin 300 MG Capsule PO ×3 (06:19→22:15)
[2021-09-14] MEDS: Nystatin Powder 15gm Bottle 1 APPLIC TOPICAL ×2 (06:20→18:16)
[2021-09-14] MEDS: Menthol/Lanolin/Calamine/Znox 113 GM Tube 1 APPLIC TOPICAL ×3 (06:20→22:12)
[2021-09-14] MEDS: Vitamin E 400 UNITS Capsule PO (06:21)
[2021-09-14] MEDS: Methenamine Hippurate 1 GM Tablet PO (06:21)
[2021-09-14] MEDS: Senna Tablet 2 TABLET PO (06:21)
[2021-09-14] MEDS: NIFEdipine 30 MG Tablet PO (06:21)
[2021-09-14] MEDS: Lisinopril 20 MG Tablet PO (06:21)
[2021-09-14] MEDS: Finasteride 5 MG Tablet PO (06:22)
[2021-09-14] MEDS: Acetaminophen 500 MG Tablet 1000 MG PO ×3 (06:23→22:10)
[2021-09-14] MEDS: Carvedilol 12.5 MG Tablet PO ×2 (07:58→18:13)
[2021-09-14] MEDS: Aspirin 81 MG TAB.CHEW PO (07:58)
[2021-09-14] MEDS: Potassium Chloride Oral Tablet 20 MEQ PO (07:58)
[2021-09-14] MEDS: Ferrous Sulfate 325 MG Tablet PO (11:30)
[2021-09-14] MEDS: Ascorbic Acid 500 MG Tablet 1000 MG PO (11:30)
[2021-09-14 16:00] VITALS: BP 122/69; PULSE 71; RESP 18; TEMP 36.5; O2SAT 95
[2021-09-14] MEDS: Potassium Chloride Oral Tablet 10 MEQ PO (18:13)
[2021-09-14] MEDS: Citalopram 40 MG TABLET PO (22:10)
[2021-09-14] MEDS: MELATONIN 3 MG TABLET PO (22:11)
[2021-09-14] MEDS: Baclofen 10 MG Tablet PO (22:12)
[2021-09-14] MEDS: Tamsulosin HCl 0.4 MG Capsule PO (22:12)
[2021-09-14] MEDS: 0.9% Saline Lock 10 ML Syringe IV (22:19)
[2021-09-14] MEDS: Fleet Enema 1 ML RC (22:43)
[2021-09-15] MEDS: Nystatin Powder 15gm Bottle 1 APPLIC TOPICAL ×2 (06:22→17:42)
[2021-09-15] MEDS: Menthol/Lanolin/Calamine/Znox 113 GM Tube 1 APPLIC TOPICAL ×3 (06:22→20:56)
[2021-09-15 06:25] VITALS: BP 135/75; PULSE 60
[2021-09-15] MEDS: Acetaminophen 500 MG Tablet 1000 MG PO ×3 (06:37→20:58)
[2021-09-15] MEDS: Lisinopril 20 MG Tablet PO (06:37)
[2021-09-15] MEDS: Methenamine Hippurate 1 GM Tablet PO (06:37)
[2021-09-15] MEDS: Vitamin E 400 UNITS Capsule PO (06:37)
[2021-09-15] MEDS: Senna Tablet 2 TABLET PO (06:37)
[2021-09-15] MEDS: NIFEdipine 30 MG Tablet PO (06:37)
[2021-09-15] MEDS: Finasteride 5 MG Tablet PO (06:37)
[2021-09-15] MEDS: Aspirin 81 MG TAB.CHEW PO (08:46)
[2021-09-15] MEDS: Carvedilol 12.5 MG Tablet PO ×2 (08:46→17:39)
[2021-09-15] MEDS: Gabapentin 300 MG Capsule PO ×3 (08:46→17:38)
[2021-09-15] MEDS: Potassium Chloride Oral Tablet 20 MEQ PO (08:47)
[2021-09-15] MEDS: Ferrous Sulfate 325 MG Tablet PO (11:50)
[2021-09-15] MEDS: Ascorbic Acid 500 MG Tablet 1000 MG PO (11:50)
--- NOTE | 2021-09-15 13:06 | NURSING ---
Repeat MRI to be done today per order. Per MRI staff, pt's MRI can't be done today due to patient having a pacemaker. Will be done tomorrow.
[2021-09-15] MEDS: 0.9% Saline Lock 10 ML Syringe IV (13:39)
[2021-09-15 15:07] VITALS: BP 120/65; PULSE 62; RESP 15; TEMP 36.1; O2SAT 95
[2021-09-15] MEDS: Potassium Chloride Oral Tablet 10 MEQ PO (17:39)
--- NOTE | 2021-09-15 19:40 | PN.TCU_ITS ---
Subjective Subjective Resident seen and examined for regulatory visit. In the interim, following happened. 09/07/2021 Resident had change in mental status, urine culture grew Pseudomonas Aeruginosa, Dr. Stuart consulted, recommend Cefepime IV Q8 thru 09/18/2021/ 09/08/2021 MRI brain showed subacute infarct, bilateral subdural hematoma. Teleneurology consulted, recommend holding Eliquis for 1 week, repeat MRI brain in 1 week. Resident continues to have express aphasia. Objective Data Objective Data Vital Signs: Vital Signs Temp Pulse Resp BP Pulse Ox O2 Del Method 97 F L 62 15 120/65 95 Room Air 09/15/21 15:07 09/15/21 15:07 09/15/21 15:07 09/15/21 15:07 09/15/21 15:07 09/15/21 15:07 Oxygen Delivery Method Room Air Weight: 105.687 kg Body Mass Index (BMI) 35.2 Intake & Output: Intake and Output for Last 24 Hours 09/13/21 09/14/21 09/15/21 23:59 23:59 23:59 Intake Total 2210 / 2210 1020 / 1020 800 / 800 Output Total 1050 / 1050 950 / 950 550 / 550 Balance 1160 / 1160 70 / 70 250 / 250 Lab / Micro Data Result Diagrams: 09/08/21 05:36 09/08/21 05:36 Micro: Microbiology 09/15/21 06:25 Nasal Secretion SARS-CoV-2 Antigen (Rapid) - Final 09/06/21 15:16 Urine, Random Urine Culture - Final Escherichia coli 09/08/21 12:24 Nasal Secretion SARS-CoV-2 Antigen (Rapid) - Final 09/01/21 12:24 Nasal Secretion SARS-CoV-2 Antigen (Rapid) - Final 08/19/21 08:50 Urine Catheter - Catheter Urine Culture - Final Escherichia coli Physical Exam Const alert General Appearance: cooperative HEENT normocephalic Eyes PERRL and EOMs intact bilaterally Neck supple, no JVD and no carotid bruits Resp normal respiratory effort, normal air movement and clear to auscultation bilaterally Cardio regular rate and regular rhythm GI normal to inspection, nondistended, normoactive bowel sounds, non-tender and non-distended Extremity normal capillary refill General Extremity: Negative for edema Skin no rashes or lesions noted General Skin Exam: no breakdown Neuro Neuro Narrative: Right hemiparesis. 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 * Debility - PT/OT. * Pain - Tylenol 1000mg q8h. * Bowel - Senokot 2 tablets daily, Fleet enema pr daily * Adult immunization - Administer pneumonia vaccine, covid19 vaccine, flu vaccine as appropriate. * DVT prophylaxis - Not necessary, on Eliquis. * Iron deficiency anemia - Ferrous sulfate 325mg daily, Vitamin C 1000mg daily. * Neuropathic pain - Gabapentin 300mg tid. * Seborrhea - Ketoconazole 2% cream topical bid prn. * Tinea Corporis - Lotrisone topical tid, Nystatin powder topical bid. * Hypokalemia - KCL 20meq, 10meq. * Hyperlipidemia - Resident refused to take Atorvastatin 40mg qhs. * GI prophylaxis - Acidophilus 1 tablet bid. * Skin irritation - Calmoseptine topical tid. * Vitamin E deficiency - Vitamin E 400 iu daily. * Hypertension - Coreg 12.5mg bid, Lisinopril 20mg daily, Nifedipine 30mg daily. * Depression - Citalopram 40mg daily, stable chronic group home use, GDR not recommended. * Insomnia - Melatonin 3mg qhs. * Recurrent uti - Urex 1gm daily, Vitamin C 1000mg daily. * BPH - Tamsulosin 0.4mg daily, Finasteride 5mg daily. * Muscle spasm - Baclofen 10mg qhs. * Stroke - Aspirin 81mg daily. * Atrial fibrillation - Coreg 12.5mg bid, Nifedipine 30mg daily, Eliquis 5mg bid. * Nausea - Compazine 5mg q4h prn. * P. aeruginosa UTI - Dr. Stuart, Cefepime 2gm iv q8 thru 09/18/2021. Capacity Capacity Assessment Tool Can the patient make a choice & communicate that choice?: No Can the patient understand benefits, risks and alternatives?: No Can the patient make a logical, rational choice?: No Is the choice the patient makes consistent w/ their values?: Unable to Determine Is there an impending, emergent risk to the patient?: Yes Does the patient have an Advance Directive?: No Is there a Surrogate Available?: Yes i.e. close relative (spouse, child, parent, sibling)?: Yes
[2021-09-15] MEDS: Baclofen 10 MG Tablet PO (20:57)
[2021-09-15] MEDS: Tamsulosin HCl 0.4 MG Capsule PO (20:57)
[2021-09-15] MEDS: MELATONIN 3 MG TABLET PO (20:57)
[2021-09-15] MEDS: Citalopram 40 MG TABLET PO (20:57)
[2021-09-15 21:00] VITALS: PULSE 65; RESP 18; O2SAT 97
[2021-09-15] MEDS: Fleet Enema 1 ML RC (21:09)
[2021-09-16 06:01] LABS: Absolute Lymphocyte Count 1.03 X10^3/uL (0.83-4.51); Absolute Neutrophil Count 4.1 X10^3/uL (2.0-7.7); Basophil# 0.04 X10^3/uL; Basophil% 0.7 % (0-1); Eosinophil# 0.13 X10^3/uL; Eosinophils% 2.2 % (0-5); Hematocrit 34.1 % (40-54); Hemoglobin 11.2 g/dL (13.0-16.5); Lymphocyte # 1.03 X10^3/ul (0.83-4.51); Lymphocyte % 17.5 % (19-41); Mean Corp Hgb Conc 32.8 g/dL (32-36); Mean Corpuscular Hgb 30.6 pg (27.0-32.0); Mean Corpuscular Volume 93.2 fL (80-94); Mean Platelet Vol. 9.6 fl (6.2-12.0); Monocyte# 0.47 X10^3/uL; NRBC Flagged by Analyzer 0 % (0-5); Neutrophil # 4.14 X10^3/uL (2.7-7.7); Neutrophil % 70.6 % (47-70); Platelet Count 178 K/mm3 (150-450); RBC Distribution Width CV 14.9 % (11.6-14.6); RBC Distribution Width SD 50.5 fl (35.1-43.9); Red Blood Count 3.66 M/mm3 (4.6-6.2); White Blood Count 5.9 K/mm3 (4.4-11.0)
[2021-09-16] MEDS: Gabapentin 300 MG Capsule PO ×3 (06:12→17:26)
[2021-09-16] MEDS: Acetaminophen 500 MG Tablet 1000 MG PO ×3 (06:12→22:09)
[2021-09-16] MEDS: Finasteride 5 MG Tablet PO (06:12)
[2021-09-16] MEDS: Nystatin Powder 15gm Bottle 1 APPLIC TOPICAL ×2 (06:13→17:28)
[2021-09-16] MEDS: Lisinopril 20 MG Tablet PO (06:13)
[2021-09-16] MEDS: Methenamine Hippurate 1 GM Tablet PO (06:13)
[2021-09-16] MEDS: Vitamin E 400 UNITS Capsule PO (06:13)
[2021-09-16] MEDS: NIFEdipine 30 MG Tablet PO (06:13)
[2021-09-16] MEDS: Senna Tablet 2 TABLET PO (06:13)
[2021-09-16] MEDS: Menthol/Lanolin/Calamine/Znox 113 GM Tube 1 APPLIC TOPICAL ×3 (06:13→22:08)
[2021-09-16 06:45] LABS: Anion Gap 5 (5-15); BUN 20 mg/dL (7-18); BUN/Creat Ratio 26.7 RATIO (10-20); Chloride 111 mmol/L (98-107); Creatinine, Serum 0.75 mg/dL (0.70-1.30); EST Glomerular Filtration Rate 108 mL/min (>60); Est Glom Filt Rate - Afr Amer 131 mL/min (>60); Estimated Creatinine Clearance 61.75 ml/min; Glucose 92 mg/dL (74-106); Potassium 3.7 mmol/L (3.5-5.1); Sodium Level 140 mmol/L (136-145)
[2021-09-16] MEDS: Aspirin 81 MG TAB.CHEW PO (09:04)
[2021-09-16] MEDS: Potassium Chloride Oral Tablet 20 MEQ PO (09:04)
[2021-09-16] MEDS: Carvedilol 12.5 MG Tablet PO ×2 (09:06→17:27)
[2021-09-16] MEDS: Ferrous Sulfate 325 MG Tablet PO (11:57)
[2021-09-16] MEDS: Ascorbic Acid 500 MG Tablet 1000 MG PO (11:58)
[2021-09-16] MEDS: 0.9% Saline Lock 10 ML Syringe IV (13:38)
[2021-09-16 14:05] VITALS: BP 132/63; PULSE 61; RESP 17; TEMP 36.2; O2SAT 96
--- NOTE | 2021-09-16 17:06 | CASEMGMT ---
Addendum entered by Mayela Cole 09/17/21 16:49: [employer] returned call and can deliver hospital bed to pt prior to DC. Addendum entered by Mayela Cole 09/17/21 15:19: Spoke with [employer] and scheduled evals. Spoke with [facility] and they are checking on hospital bed availability. Will update SW. Addendum entered by Mayela Cole 09/16/21 17:42: Son presented to office. Discussed DC plans. Son confirmed DC home 09/19 and restart [facility] PT/OT/ST. SW to contact to make appts. SW to contact [facility] to get hospital bed delivered. Son unsure if they will rent a van for transport or if he wants w/c transport scheduled. Son to update this worker. Inquired about Palliative. Son denied stating pt does not seem to have the severe pain. Updated [facility]. No other needs. Plan: DC home 09/19 with [facility] PT/OT/ST, hospital bed Original Note: Social Work Left message with son to discuss DC plans as son stated to Team goal is to DC home after IV ATB on 09/19. Will await return call. LIYAH Rodriguez
[2021-09-16] MEDS: APIXABAN 5 MG TABLET PO (17:27)
[2021-09-16] MEDS: Potassium Chloride Oral Tablet 10 MEQ PO (17:27)
[2021-09-16] MEDS: Fleet Enema 1 ML RC (22:07)
[2021-09-16] MEDS: Citalopram 40 MG TABLET PO (22:08)
[2021-09-16] MEDS: Tamsulosin HCl 0.4 MG Capsule PO (22:09)
[2021-09-16] MEDS: Baclofen 10 MG Tablet PO (22:09)
[2021-09-16] MEDS: MELATONIN 3 MG TABLET PO (22:09)
[2021-09-16 22:15] VITALS: PULSE 65; RESP 16; O2SAT 95
[2021-09-17] MEDS: Acetaminophen 500 MG Tablet 1000 MG PO ×3 (05:11→22:13)
[2021-09-17] MEDS: APIXABAN 5 MG TABLET PO ×2 (05:11→17:40)
[2021-09-17] MEDS: Vitamin E 400 UNITS Capsule PO (05:11)
[2021-09-17] MEDS: Lisinopril 20 MG Tablet PO (05:11)
[2021-09-17] MEDS: Senna Tablet 2 TABLET PO (05:12)
[2021-09-17] MEDS: Methenamine Hippurate 1 GM Tablet PO (05:12)
[2021-09-17] MEDS: NIFEdipine 30 MG Tablet PO (05:12)
[2021-09-17] MEDS: Finasteride 5 MG Tablet PO (05:12)
[2021-09-17] MEDS: Menthol/Lanolin/Calamine/Znox 113 GM Tube 1 APPLIC TOPICAL ×3 (05:13→22:12)
[2021-09-17] MEDS: Nystatin Powder 15gm Bottle 1 APPLIC TOPICAL ×2 (05:17→17:43)
[2021-09-17 05:20] VITALS: BP 115/64; PULSE 91
[2021-09-17] MEDS: Carvedilol 12.5 MG Tablet PO ×2 (08:07→16:26)
[2021-09-17] MEDS: Gabapentin 300 MG Capsule PO ×3 (08:07→17:40)
[2021-09-17] MEDS: Aspirin 81 MG TAB.CHEW PO (08:07)
[2021-09-17] MEDS: Potassium Chloride Oral Tablet 20 MEQ PO (08:08)
[2021-09-17] MEDS: Ascorbic Acid 500 MG Tablet 1000 MG PO (11:07)
[2021-09-17] MEDS: Ferrous Sulfate 325 MG Tablet PO (11:07)
[2021-09-17] MEDS: 0.9% Saline Lock 10 ML Syringe IV ×2 (13:30→22:09)
[2021-09-17 15:51] VITALS: BP 120/63; PULSE 57; RESP 16; TEMP 36.6; O2SAT 96
[2021-09-17] MEDS: Potassium Chloride Oral Tablet 10 MEQ PO (16:25)
[2021-09-17 19:18] VITALS: PULSE 57; RESP 16; O2SAT 98
[2021-09-17] MEDS: Tamsulosin HCl 0.4 MG Capsule PO (22:12)
[2021-09-17] MEDS: Fleet Enema 1 ML RC (22:12)
[2021-09-17] MEDS: Citalopram 40 MG TABLET PO (22:12)
[2021-09-17] MEDS: MELATONIN 3 MG TABLET PO (22:13)
[2021-09-17] MEDS: Baclofen 10 MG Tablet PO (22:13)
[2021-09-18] MEDS: 0.9% Saline Lock 10 ML Syringe IV (05:23)
[2021-09-18 05:24] VITALS: BP 140/82; PULSE 62
[2021-09-18] MEDS: APIXABAN 5 MG TABLET PO ×2 (05:25→17:46)
[2021-09-18] MEDS: Finasteride 5 MG Tablet PO (05:25)
[2021-09-18] MEDS: Vitamin E 400 UNITS Capsule PO (05:25)
[2021-09-18] MEDS: Menthol/Lanolin/Calamine/Znox 113 GM Tube 1 APPLIC TOPICAL ×3 (05:26→22:27)
[2021-09-18] MEDS: Lisinopril 20 MG Tablet PO (05:26)
[2021-09-18] MEDS: NIFEdipine 30 MG Tablet PO (05:26)
[2021-09-18] MEDS: Methenamine Hippurate 1 GM Tablet PO (05:26)
[2021-09-18] MEDS: Senna Tablet 2 TABLET PO (05:26)
[2021-09-18] MEDS: Acetaminophen 500 MG Tablet 1000 MG PO ×3 (05:26→22:29)
[2021-09-18] MEDS: Nystatin Powder 15gm Bottle 1 APPLIC TOPICAL ×2 (05:27→17:45)
[2021-09-18] MEDS: Gabapentin 300 MG Capsule PO ×3 (08:15→17:46)
[2021-09-18] MEDS: Aspirin 81 MG TAB.CHEW PO (08:16)
[2021-09-18] MEDS: Carvedilol 12.5 MG Tablet PO ×2 (08:16→17:46)
[2021-09-18] MEDS: Potassium Chloride Oral Tablet 20 MEQ PO (08:16)
[2021-09-18 08:18] VITALS: BP 113/61; PULSE 66
--- NOTE | 2021-09-18 10:27 | CASEMGMT ---
Social Work Followed up with son about [employer] delivering hospital bed today. will be home. Son stated they will transport pt home at 1400. No other needs. Mayela Cole, ORDNANCE ENGINEERING TECHNICIAN BEHAVIORAL THERAPIST
[2021-09-18] MEDS: Ferrous Sulfate 325 MG Tablet PO (12:53)
[2021-09-18] MEDS: Ascorbic Acid 500 MG Tablet 1000 MG PO (12:53)
[2021-09-18 14:26] VITALS: BP 119/60; PULSE 62; RESP 18; TEMP 36.5; O2SAT 98
[2021-09-18] MEDS: Potassium Chloride Oral Tablet 10 MEQ PO (17:46)
[2021-09-18] MEDS: Fleet Enema 1 ML RC (22:28)
[2021-09-18] MEDS: Citalopram 40 MG TABLET PO (22:29)
[2021-09-18] MEDS: Baclofen 10 MG Tablet PO (22:29)
[2021-09-18] MEDS: Tamsulosin HCl 0.4 MG Capsule PO (22:30)
[2021-09-18] MEDS: MELATONIN 3 MG TABLET PO (22:30)
[2021-09-19] MEDS: 0.9% Saline Lock 10 ML Syringe IV (05:52)
[2021-09-19] MEDS: Methenamine Hippurate 1 GM Tablet PO (05:54)
[2021-09-19] MEDS: Senna Tablet 2 TABLET PO (05:54)
[2021-09-19] MEDS: Acetaminophen 500 MG Tablet 1000 MG PO ×2 (05:54→13:35)
[2021-09-19] MEDS: NIFEdipine 30 MG Tablet PO (05:54)
[2021-09-19] MEDS: Finasteride 5 MG Tablet PO (05:54)
[2021-09-19] MEDS: Lisinopril 20 MG Tablet PO (05:54)
[2021-09-19] MEDS: Vitamin E 400 UNITS Capsule PO (05:54)
[2021-09-19] MEDS: APIXABAN 5 MG TABLET PO (05:54)
[2021-09-19] MEDS: Nystatin Powder 15gm Bottle 1 APPLIC TOPICAL (05:55)
[2021-09-19] MEDS: Menthol/Lanolin/Calamine/Znox 113 GM Tube 1 APPLIC TOPICAL ×2 (05:55→13:34)
[2021-09-19 05:58] VITALS: BP 124/68; PULSE 60
[2021-09-19] MEDS: Carvedilol 12.5 MG Tablet PO (08:41)
[2021-09-19] MEDS: Potassium Chloride Oral Tablet 20 MEQ PO (08:41)
[2021-09-19] MEDS: Gabapentin 300 MG Capsule PO ×2 (08:41→12:35)
[2021-09-19] MEDS: Aspirin 81 MG TAB.CHEW PO (08:41)
--- NOTE | 2021-09-19 10:41 | NURSING ---
Saline lock removed from right AC. Patient tolerated well. No signs or symptoms of infection noted.
[2021-09-19 10:44] VITALS: PULSE 68; RESP 16; O2SAT 95
[2021-09-19] MEDS: Ferrous Sulfate 325 MG Tablet PO (12:35)
[2021-09-19] MEDS: Ascorbic Acid 500 MG Tablet 1000 MG PO (12:36)
[2021-09-19 13:00] VITALS: BP 108/61; PULSE 68; RESP 16; TEMP 36.7; O2SAT 95
--- NOTE | 2021-09-19 14:42 | CASEMGMT ---
Social Work BIMS and PHQ-9 completed for MDS assessment. Mayela Cole, SALT CUTTER PRESS BREAKER
== END 2021-09-19 14:30 | disposition home or self-care (01) | DRG 56 ==
PROVIDERS: Admitting Provider Family Medicine Geriatric Medicine; PCP Preventive Medicine Occupational Medicine; Visit Provider Family Medicine Geriatric Medicine
DX: I69.334 Monoplegia of upper limb following cerebral infarction affecting left non-dominant side (principal); G82.54 Quadriplegia, C5-C7 incomplete; K59.2 Neurogenic bowel, not elsewhere classified; N39.0 Urinary tract infection, site not specified; B35.4 Tinea corporis; B96.5 Pseudomonas (aeruginosa) (mallei) (pseudomallei) as the cause of diseases classified elsewhere; M62.838 Other muscle spasm; I48.91 Unspecified atrial fibrillation; D50.9 Iron deficiency anemia, unspecified; E78.5 Hyperlipidemia, unspecified; E87.6 Hypokalemia; M79.2 Neuralgia and neuritis, unspecified; N40.0 Benign prostatic hyperplasia without lower urinary tract symptoms; S12.500D Unspecified displaced fracture of sixth cervical vertebra, subsequent encounter for fracture with routine healing; F32.A Depression, unspecified; Z79.82 Long term (current) use of aspirin; Z79.01 Long term (current) use of anticoagulants; N31.9 Neuromuscular dysfunction of bladder, unspecified; Z79.899 Other long term (current) drug therapy; Z86.718 Personal history of other venous thrombosis and embolism; B96.20 Unspecified Escherichia coli [E. coli] as the cause of diseases classified elsewhere; Z66 Do not resuscitate
CPT/HCPCS: 36415; 74018; 80048; 81001; 83880; 85025; 87077; 87086; 87088; 87186; 87426; 87811; 92507; 92523; 96125; 97110; 97116; 97162; 97166; 97530; 97535; 97802; J7050; A4216

== ENCOUNTER 2021-09-07 09:55 | Emergency (ER) | payer MEDICARE, OTHER, SELFPAY ==
[2021-09-07 09:57] VITALS: BP 115/71; PULSE 69; RESP 18; TEMP 36.9; O2SAT 94; BMI 34.0
--- NOTE | 2021-09-07 10:09 | CT_ITS ---
STUDY: CT BRAIN WITHOUT CONTRAST REASON FOR EXAM: Male, 76 years old. Confusion stroke RADIATION DOSAGE (If Supplied By Facility): CTDIvol = ( 44.99 ) mGy, DLP = ( 863.6 ) mGycm TECHNIQUE: Transaxial CT imaging of the brain was performed without administration of intravenous contrast material. Individualized dose optimization techniques were used for this CT. COMPARISON: 07/22/2021 FINDINGS: Normal soft tissue structures. Normal calvarium. There is mild cerebral atrophy with widening of the extra-axial spaces and ventricular dilatation. There are areas of decreased attenuation within the white matter tracts of the supratentorial brain, consistent with microvascular disease changes. Chronic lacunar infarcts of the left basal ganglia. Normal brainstem. Normal cerebellum. There is no intracranial hemorrhage. Ill-defined area of decreased attenuation the posterior left parietal lobe likely consistent with a subacute infarct. MRI may be useful. Normal visualized paranasal sinuses. CT/Brain/Head without Contrast IMPRESSION: Suspect subacute left parietal lobe infarct. MRI may be useful. No acute intracranial hemorrhage. Electronically Signed: Dejuan Mckeon MD at 11:39 EDT ,
--- NOTE | 2021-09-07 10:10 | EKG12_ITS ---
Test Reason : ALTERED LOC Blood Pressure : / mmHG Vent. Rate : 069 BPM Atrial Rate : 069 BPM P-R Int : 230 ms QRS Dur : 088 ms QT Int : 428 ms P-R-T Axes : 090 024 055 degrees QTc Int : 458 ms Atrial-paced rhythm with prolonged AV conduction Abnormal ECG Confirmed by MAICO PITTS, DANNY ([id number]), communications editor HARJIT MARIN ([id number]) on 09/09/2021 8:21:08 AM Referred By: GALE Confirmed By:DANNY NINA MD
--- NOTE | 2021-09-07 10:13 | EX.ED.DYSGE1 ---
HPI History of Present Illness Chief Complaint: Alt LOC Informant: other Narrative Narrative: Patient was sent down from TCU. My understanding is that this for the last 2 days he has been more confused than normally. I have no report of any new neurologic deficit. No complaints from the patient but he does have some expressive aphasia and is very hard to communicate. He also is confused. I get no meaningful review of systems out of him. He can tell me his age. He has trouble telling me anything else. He keeps stating that he wishes his was here to tell everything about him. He did have recent strokes. He is also had A. fib. He is on Eliquis. I note on the labs that he had a urine checked yesterday that appears to be grossly infected with cloudy urine, leukocyte Estrace, a large number white cells and bacteria. I am trying to find out if he has antibiotic started. I see Macrobid on a med list that we have but I do not know the date of starting this. I see that earlier this month he had E. coli infection in the urine that was essentially pansensitive. 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 Neurogenic bladder Neurogenic bowel Neuropathy 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.9) Paraplegia Premature ventricular contractions Prostatic hypertrophy Sick sinus syndrome Sick sinus syndrome Spinal cord injury Subluxation of C6-C7 cervical vertebrae TIA (transient ischemic attack) Home Medications lisinopril 20 mg tablet 20 mg PO DAILY blood pressure 06/24/15 [History Last Taken 03/28/19] aspirin 81 mg chewable tablet 81 mg PO DAILY Heart health 07/18/21 [History Last Taken Unknown] melatonin 3 mg tablet 3 mg PO QHS Supplement 07/18/21 [History Last Taken Unknown] nifedipine 30 mg tablet,extended release 30 mg PO DAILY BP 07/18/21 [History Last Taken Unknown] Lactobacillus acidophilus (Acidophilus) 1 tab PO DAILY probiotic 07/25/21 [History Last Taken Unknown] apixaban 5 mg tablet (Eliquis) 5 mg PO BID blood thinner 07/25/21 [History Last Taken Unknown] acetaminophen 500 mg tablet 1,000 mg PO Q8 pain 08/17/21 [History Last Taken 08/17/21 12:53] acidophilus 25 million cell-pectin, citrus 100 mg tablet 1 tab PO DAILY Supplement 08/17/21 [History Last Taken Unknown] ascorbic acid (vitamin C) 500 mg tablet 1,000 mg PO LUNCH supplement 08/17/21 [History Last Taken Unknown] baclofen 10 mg tablet 10 mg PO QHS Muscle spasms 30 days #30 tabs 09/03/21 [Rx Last Taken Unknown] carvedilol 12.5 mg tablet 12.5 mg PO Q12H BP 30 days #60 tabs 09/03/21 [Rx Last Taken Unknown] citalopram 20 mg tablet 40 mg PO QHS depression 30 days #30 tabs 09/03/21 [Rx Last Taken Unknown] ferrous sulfate 325 mg (65 mg iron) tablet (FeroSul) 325 mg PO DAILY@1200 supplement 30 days #30 tabs 09/03/21 [Rx Last Taken Unknown] finasteride 5 mg tablet (Proscar) 5 mg PO DAILY Prostate 30 days #30 tabs 09/03/21 [Rx Last Taken Unknown] gabapentin 300 mg capsule 300 mg PO TID Nerve pain 30 days #90 caps 09/03/21 [Rx Last Taken Unknown] methenamine hippurate 1 gram tablet 1 g PO DAILY Supplement 30 days #30 tabs 09/03/21 [Rx Last Taken Unknown] potassium chloride 10 mEq tablet,extended release(part/cryst) 10 meq PO 1700 supplement 30 days #30 tabs 09/03/21 [Rx Last Taken Unknown] potassium chloride 20 mEq tablet,extended release 20 meq PO BREAKFAST supplement 30 days #30 tabs 09/03/21 [Rx Last Taken Unknown] tamsulosin 0.4 mg capsule 0.4 mg PO QHS Urine retention 30 days #30 caps 09/03/21 [Rx Last Taken Unknown] atorvastatin 40 mg tablet 40 mg PO DAILY 09/05/21 [History Last Taken Unknown] nitrofurantoin macrocrystal 100 mg capsule 100 mg PO BID 6 days #12 caps 09/06/21 [Rx Last Taken Unknown] Allergy/AdvReac Type Severity Reaction Status Date / Time ciprofloxacin [From Cipro] Allergy Hives Verified 09/05/21 15:24 sulfamethoxazole Allergy PT UNSURE Verified 09/05/21 15:24 [From Bactrim] OF REACTION trimethoprim [From Bactrim] Allergy PT UNSURE Verified 09/05/21 15:24 OF REACTION Family History Mother Breast cancer Cancer Brain cancer Sister Diabetes Hypertension CHF (congestive heart failure) Kidney disease Sister CHF (congestive heart failure) Cardiac defibrillator in situ Other Family history of hypertension Surgical History History of neck surgery History of permanent cardiac pacemaker placement S/P cervical spinal fusion Social History household members: spouse Smoking Status: Never smoker alcohol intake: current alcohol intake frequency: holidays/special occasions only Alcohol type: wine substance use type: does not use caffeine: Yes Type: coffee Number of servings: 1 what type of physical activity do you participate in: other details: Health point frequency: 1-2 times per week duration: 45-60 minutes/day seatbelt use: always do you feel safe at home: Yes ROS ROS ED ROS Narrative Unable to obtain any consistent review of systems. He appears to be denying any pain. He can follow directions for me and assist with exam though. Review of Systems ROS Unobtainable: due to mental condition EXAM Physical Exam Const Vital Signs: 09/07/21 09:57 09/07/21 10:06 Temperature 98.4 F Temperature Source Temporal Pulse Rate 69 Respiratory Rate 18 Respiratory Effort Normal Non-Labored Respiratory Pattern Normal Blood Pressure 115/71 Blood Pressure Mean 85 Pulse Ox 94 Oxygen Delivery Method Room Air Positive well nourished, well developed and obese Constitutional Narrative: Patient is awake. He is aware. He is cooperative. He is nontoxic. His vitals look good. There is no indication of respiratory difficulty at all. General Appearance ED: well developed; Negative for cyanotic or diaphoretic Nutritional Appearance: obese HEENT Reports dry mucous membranes HEENT Narrative: Very mildly dry mucous membranes. No tenderness. Mouth ED: Yes dry mucous membranes Mouth: dry mucous membranes Eyes EOMs intact bilaterally Neck Neck Narrative: Good range of motion left and right. No pain with motion. Resp normal respiratory effort and clear to auscultation bilaterally Resp Narrative: Breath sounds are clear Cardio regular rate and regular rhythm Rate: other Other Details: Patient has a normal heart rate. His rhythm seems to be regular even though he does have a history of atrial fibrillation. GI normal to inspection, nondistended, normoactive bowel sounds and non-tender GI Narrative: Abdomen is obese but does not appear to be distended. Soft. Is nontender diffusely. He does have ventral hernia but this is completely nontender. Bowel sounds are normal. Narrative: No skin breakdown around testicles or penis. Extremity normal to inspection Extremity Narrative: He has old scar on right knee. He has mild peripheral edema. Neuro Neuro Narrative: Patient is awake. He is oriented to name and age. I cannot get him to answer other questions specifically. He does follow directions. He has history of some right hemiparesis but it was evidently improving. On my exam is actually pretty good and essentially equal strength the left upper extremities. Both lower extremities are relatively weak. He states they are always weak. I do find that he has old C5-6 lesion and has some paraplegia. Psych Psych Narrative: Cooperative. Not agitated or anxious. Skin no rashes or lesions noted MDM MDM MDM Narrative Medical decision making narrative: Patient CBC shows mild anemia. Electrolytes show no marked abnormalities. Lactate is normal. Urinalysis is clearly infected. We are pending final reading of CT. We are contacting the transitional care unit to discuss what they have seen with this patient. I think this patient's confusion could easily be caused by his UTI. If they started antibiotics yesterday he is only 1 day in the treatment and this is not failure. With normal vital signs, normal lactate, normal white count I do not think he requires admission to the hospital since he is already in a monitored setting. Patient CT showed subacute stroke left parietal. This is likely consistent with his right-sided deficit that he has had recently. Yet clinically, his right side deficit is essentially gone. He has not demonstrating any clinical signs of acute stroke. He is also on maximal therapy with aspirin and Eliquis. He is actually more alert now. His son states that when he has a UTI he gets weak, stiff, confused and asked just like this. We verified that his urine was just sent last evening. It probably resulted somewhere after 4 PM. At most he has gotten 2 doses of antibiotics since then. We contacted TCU and they are able to take him back. I did give him Rocephin here because initially we were not sure if he had yet gotten antibiotics. I do not see an indication to change antibiotics acutely. His last E. coli bacteria was sensitive to Macrobid. Lab Data Attestation: I reviewed the patient's lab results. Labs: Laboratory Results - last 24 hr 09/07/21 09/07/21 09/07/21 10:30 10:30 10:30 WBC 9.6 RBC 3.70 L Hgb 11.3 L Hct 34.6 L MCV 93.5 MCH 30.5 MCHC 32.7 RDW Std Deviation 53.1 H RDW Coeff of Donna 15.4 H Plt Count 136 L MPV 10.0 Immature Gran % (Auto) 0.500 Neut % (Auto) 79.5 H Lymph % (Auto) 10.4 L Caroline % (Auto) 8.5 Eos % (Auto) 0.9 Baso % (Auto) 0.2 Absolute Neuts (auto) 7.6 Absolute Lymphs (auto) 0.99 Nucleated RBC % 0 Sodium 139 Potassium 3.8 Chloride 109 H Carbon Dioxide 25.0 Anion Gap 5 BUN 18 Creatinine 0.90 Estim Creat Clear Calc 68.61 Est GFR (MDRD) Af Amer 105 Est GFR (MDRD) Non-Af 87 BUN/Creatinine Ratio 19.9 Glucose 155 H Lactic Acid 1.2 Calcium 8.9 Urine Color Urine Clarity Urine pH Ur Specific [place] Urine Protein Urine Glucose (UA) Urine Ketones Urine Occult Blood Urine Nitrite Urine Bilirubin Urine Urobilinogen Ur Leukocyte Esterase Urine RBC Urine WBC Ur Squamous Epith Cells Urine Bacteria Urine Mucus 09/07/21 11:00 WBC RBC Hgb Hct MCV MCH MCHC RDW Std Deviation RDW Coeff of Donna Plt Count MPV Immature Gran % (Auto) Neut % (Auto) Lymph % (Auto) Caroline % (Auto) Eos % (Auto) Baso % (Auto) Absolute Neuts (auto) Absolute Lymphs (auto) Nucleated RBC % Sodium Potassium Chloride Carbon Dioxide Anion Gap BUN Creatinine Estim Creat Clear Calc Est GFR (MDRD) Af Amer Est GFR (MDRD) Non-Af BUN/Creatinine Ratio Glucose Lactic Acid Calcium Urine Color Yellow Urine Clarity Sl. Cloudy Urine pH 7.0 Ur Specific [place] 1.010 Urine Protein 15 H Urine Glucose (UA) Normal Urine Ketones Negative Urine Occult Blood 50 H Urine Nitrite Negative Urine Bilirubin Negative Urine Urobilinogen 1 H Ur Leukocyte Esterase 500 H Urine RBC 5-10 SEEN Urine WBC 25-50 SEEN Ur Squamous Epith Cells 0 SEEN Urine Bacteria 0 SEEN Urine Mucus 0 SEEN Radiography Diagnostic Testing: Clinical Impression(s) from Imaging Studies Brain CT 09/07/21 10:09 IMPRESSION: Suspect subacute left parietal lobe infarct. MRI may be useful. No acute intracranial hemorrhage. Electronically Signed: Dejuan Mckeon MD at 11:39 EDT , EKG Initial EKG: Comments: EKG done for medical evaluation read by me shows atrially Pad Extraction Tender rhythm. Overall rate of 69. No acute ST elevation or depression. SD interval is long. However, QRS duration and QTc are normal. Discharge Plan Triage Chief Complaint: Alt LOC ED Provider: Heath Manning Dx/Rx/DC Orders Clinical Impression: Urinary tract infection, Acute confusion Instructions: Urinary Tract Infections in Men Prescriptions: No Action atorvastatin 40 mg tablet 40 mg PO DAILY lisinopril 20 MG tablet 20 mg PO DAILY Label Comments: BLOOD PRESSURE melatonin 3 mg Tablet 3 mg PO QHS aspirin 81 mg Tablet,Chewable 81 mg PO DAILY Rx Instructions: . nifedipine 30 mg tablet extended release 30 mg PO DAILY Acidophilus Tablet,Chewable 1 tab PO DAILY Eliquis 5 mg Tablet 5 mg PO BID acetaminophen 500 mg tablet 1,000 mg PO Q8 ascorbic acid (vitamin C) 500 mg tablet 1,000 mg PO LUNCH acidophilus-pectin, citrus 25 million cell -100 mg tablet 1 tab PO DAILY carvedilol 12.5 mg Tablet 12.5 mg PO Q12H 30 Days Qty: 60 0RF methenamine hippurate 1 gram Tablet 1 g PO DAILY 30 Days Qty: 30 0RF citalopram 20 MG tablet 40 mg PO QHS 30 Days Qty: 30 0RF tamsulosin 0.4 mg Capsule 0.4 mg PO QHS 30 Days Qty: 30 0RF baclofen 10 mg Tablet 10 mg PO QHS 30 Days Qty: 30 0RF Rx Instructions: . ferrous sulfate [FeroSul] 325 mg (65 mg iron) tablet 325 mg PO DAILY@1200 30 Days Qty: 30 0RF gabapentin 300 mg capsule 300 mg PO TID 30 Days Qty: 90 0RF finasteride [Proscar] 5 mg Tablet 5 mg PO DAILY 30 Days Qty: 30 0RF potassium chloride 10 mEq tablet,ER particles/crystals 10 meq PO 1700 30 Days Qty: 30 0RF potassium chloride 20 mEq tablet extended release 20 meq PO BREAKFAST 30 Days Qty: 30 0RF nitrofurantoin macrocrystal 100 mg capsule 100 mg PO BID 6 Days Qty: 12 0RF Rx Instructions: must administer with a meal/food Primary Care Provider: Tunde Beard Referrals: Tunde Beard DO [Primary Care Provider] - 3-5 Days if not improving Activity Restrictions/Additional Instructions: Continue the Macrobid as written for yesterday. Disposition Disposition: Inpatient Rehab Unit/Facility
[2021-09-07 10:39] LABS: Absolute Lymphocyte Count 0.99 X10^3/uL (0.83-4.51); Absolute Neutrophil Count 7.6 X10^3/uL (2.0-7.7); Basophil# 0.02 X10^3/uL; Basophil% 0.2 % (0-1); Eosinophil# 0.09 X10^3/uL; Eosinophils% 0.9 % (0-5); Hematocrit 34.6 % (40-54); Hemoglobin 11.3 g/dL (13.0-16.5); Lymphocyte # 0.99 X10^3/ul (0.83-4.51); Lymphocyte % 10.4 % (19-41); Mean Corp Hgb Conc 32.7 g/dL (32-36); Mean Corpuscular Hgb 30.5 pg (27.0-32.0); Mean Corpuscular Volume 93.5 fL (80-94); Monocyte# 0.81 X10^3/uL; Monocyte% 8.5 % (0-10); NRBC Flagged by Analyzer 0 % (0-5); Neutrophil % 79.5 % (47-70); Platelet Count 136 K/mm3 (150-450); RBC Distribution Width CV 15.4 % (11.6-14.6); RBC Distribution Width SD 53.1 fl (35.1-43.9); White Blood Count 9.6 K/mm3 (4.4-11.0)
[2021-09-07] MEDS: Ceftriaxone 1 GM/50 ML BAG IV (10:45)
[2021-09-07 10:52] LABS: Anion Gap 5 (5-15); BUN 18 mg/dL (7-18); BUN/Creat Ratio 19.9 RATIO (10-20); Calcium,Total 8.9 mg/dL (8.5-10.1); Chloride 109 mmol/L (98-107); EST Glomerular Filtration Rate 87 mL/min (>60); Est Glom Filt Rate - Afr Amer 105 mL/min (>60); Estimated Creatinine Clearance 68.61 ml/min; Glucose 155 mg/dL (74-106); Potassium 3.8 mmol/L (3.5-5.1); Sodium Level 139 mmol/L (136-145)
[2021-09-07 11:10] LABS: Lactic Acid 1.2 mmol/L (0.4-1.9)
[2021-09-07 11:11] LABS: Bacteria 0 SEEN /hpf (None Seen); Mucous, Urine 0 SEEN /hpf (<or=2+); Squamous Epithelial Cells - UA 0 SEEN /hpf (0-5)
[2021-09-07 11:12] LABS: Color, Urine Yellow (Yellow); Glucose, Dipstick Normal (Normal); Ketone-Dipstick Negative (Negative); Leukocyte Esterase-Dipstick 500 /ul (Negative); Nitrite-Dipstick Negative (Negative); Occult Blood-Urine 50 /ul (Negative); Protein-Dipstick 15 mg/dl (Negative); Urine Bilirubin Dipstick Negative (Negative); Urine Clarity Sl. Cloudy (Clear); Urine Urobilinogen 1 mg/dl (Normal)
[2021-09-07 11:18] LABS: Red Blood Cells-Urine 5-10 SEEN /hpf (0-5); White Blood Cells 25-50 SEEN /hpf (0-5)
[2021-09-07 11:56] VITALS: BP 120/67; PULSE 64; RESP 18; O2SAT 94
[2021-09-07 12:37] VITALS: BP 120/67
== END 2021-09-07 12:38 ==
PROVIDERS: Emergency Provider Emergency Medicine; PCP Preventive Medicine Occupational Medicine; Visit Provider Emergency Medicine
DX: N39.0 Urinary tract infection, site not specified (principal); I71.4 Abdominal aortic aneurysm, without rupture; I48.91 Unspecified atrial fibrillation; I49.5 Sick sinus syndrome; N40.0 Benign prostatic hyperplasia without lower urinary tract symptoms; F32.A Depression, unspecified; Z86.718 Personal history of other venous thrombosis and embolism; I10 Essential (primary) hypertension; K59.2 Neurogenic bowel, not elsewhere classified; N31.9 Neuromuscular dysfunction of bladder, unspecified; G62.9 Polyneuropathy, unspecified; Z86.73 Personal history of transient ischemic attack (TIA), and cerebral infarction without residual deficits; R47.01 Aphasia; Z79.01 Long term (current) use of anticoagulants; Z79.899 Other long term (current) drug therapy; Z79.82 Long term (current) use of aspirin; E66.9 Obesity, unspecified; R41.0 Disorientation, unspecified; Z68.34 Body mass index [BMI] 34.0-34.9, adult
CPT/HCPCS: 70450; 80048; 81001; 83605; 85025; 87040; 87077; 87086; 87088; 87186; 93005; 96365; 99285

== ENCOUNTER → 2021-09-08 | Outpatient (CLI) | payer MEDICARE, OTHER, SELFPAY ==
--- NOTE | 2021-09-08 14:18 | MRI_ITS ---
ACR Level 3 findings have been noted. An addendum which confirms receipt of the report will follow. EXAM: MR HEAD WITHOUT INTRAVENOUS CONTRAST CLINICAL INDICATION: SUBACUTE LEFT PARIETAL INFARCT TECHNIQUE: Multiplanar and multisequence MR images of the brain were obtained without intravenous contrast. This report was created using [employer] report generation technology. COMPARISON: CT Sep 07 2021 11:23am FINDINGS: BRAIN AND EXTRA-AXIAL SPACES: Acute left occipital infarct. This was previously described. Chronic involutional changes of the brain. Bilateral subacute subdural hematomas. Left subdural hematoma measures 5.5 mm in width. Right subdural hematoma measures 2.8 mm in width. Posterior fossa structures are unremarkable. Ventricles are appropriate for age. No hydrocephalus. Basal cisterns are patent. SELLA: Unremarkable. Normal sella turcica, pituitary gland, infundibular stalk, optic chiasm and hypothalamus. AUDITORY SYSTEM: Unremarkable. The internal auditory canals are patent. BONES/JOINTS: Unremarkable. No discrete lytic or blastic abnormalities. SINUSES: Unremarkable as visualized. Clear. MASTOID AIR CELLS: Unremarkable as visualized. Clear. ORBITS: Unremarkable as visualized. Both globes, extraocular muscles, optic nerves and retrobulbar fat appear unremarkable. VASCULATURE: Unremarkable as visualized. Normal flow voids in the major intracranial circulation. MRI/Brain without Contrast IMPRESSION: 1. Acute left occipital infarct. This was previously described. 2. Chronic involutional changes of the brain. 3. Bilateral subacute subdural hematomas. Left subdural hematoma measures 5.5 mm in width. Right subdural hematoma measures 2.8 mm in width. Non standard communication findings protocol was initiated. Electronically Signed: Robert Bae MD at 15:23 EDT ,
[2021-09-08 14:32] VITALS: BP 111/70; PULSE 91; RESP 16; O2SAT 95
[2021-09-08 14:47] VITALS: BP 115/71; PULSE 90; RESP 16; O2SAT 95
[2021-09-08 14:55] VITALS: BP 115/71; PULSE 89; RESP 18; O2SAT 94
== END | disposition home or self-care (01) ==
LOC: MRI 14:18
PROVIDERS: PCP Preventive Medicine Occupational Medicine; Visit Provider Family Medicine Geriatric Medicine
DX: Z86.73 Personal history of transient ischemic attack (TIA), and cerebral infarction without residual deficits (principal)
CPT/HCPCS: 70551

== ENCOUNTER → 2021-09-16 | Outpatient (CLI) | payer MEDICARE, OTHER, SELFPAY ==
--- NOTE | 2021-09-16 14:30 | MRI_ITS ---
EXAM: MR HEAD WITHOUT INTRAVENOUS CONTRAST CLINICAL INDICATION: F/U stroke confusion aphasia TECHNIQUE: Multiplanar and multisequence MR images of the brain were obtained without intravenous contrast. This report was created using [employer] report generation technology. COMPARISON: Sep 08 2021 2:26pm FINDINGS: BRAIN AND EXTRA-AXIAL SPACES: Bilateral subdural hematomas. Left subdural hematoma measures 5.5 mm in width. Right subdural hematoma measures 3.3 mm in width. This is relatively stable since the prior study. Chronic involutional changes of the brain. There is the sequela of a left occipital infarct extending to the left insular cortex. Posterior fossa structures are unremarkable. Ventricles are appropriate for age. No hydrocephalus. Basal cisterns are patent. SELLA: Unremarkable. Normal sella turcica, pituitary gland, infundibular stalk, optic chiasm and hypothalamus. AUDITORY SYSTEM: Unremarkable. The internal auditory canals are patent. BONES/JOINTS: Unremarkable. No discrete lytic or blastic abnormalities. SINUSES: Unremarkable as visualized. Clear. MASTOID AIR CELLS: Unremarkable as visualized. Clear. ORBITS: Unremarkable as visualized. Both globes, extraocular muscles, optic nerves and retrobulbar fat appear unremarkable. VASCULATURE: Unremarkable as visualized. Normal flow voids in the major intracranial circulation. MRI/Brain without Contrast IMPRESSION: 1. Bilateral subdural hematomas. Left subdural hematoma measures 5.5 mm in width. Right subdural hematoma measures 3.3 mm in width. This is relatively stable since the prior study. 2. Chronic involutional changes of the brain. 3. There is the sequela of a left occipital infarct extending to the left insular cortex. Electronically Signed: Robert Bae MD at 15:40 EDT ,
[2021-09-16 14:31] VITALS: BP 140/79; PULSE 69; O2SAT 97
[2021-09-16 14:46] VITALS: BP 124/93; PULSE 70; RESP 18; O2SAT 98
== END | disposition home or self-care (01) ==
PROVIDERS: PCP Preventive Medicine Occupational Medicine; Visit Provider Family Medicine Geriatric Medicine
DX: S06.5X0A Traumatic subdural hemorrhage without loss of consciousness, initial encounter (principal)
CPT/HCPCS: 70551

== ENCOUNTER 2022-03-26 15:30 | Outpatient (RCR) | payer MEDICARE, OTHER, SELFPAY ==
--- NOTE | 2021-09-30 18:56 | HP.SP.EV_ITS ---
History - History Date of Eval: 09/30/21 Results: Ignacio is a 76 year old man who was seen at [facility] for a speech and language evaluation. Pt had a CVA in June 2021 and was treated at [facility] for 9 weeks. Pt received speak therapy for expressive and receptive aphasia on the TCU floor. Reports indicate that Pt has made significant improvement in naming. Pt lives at home with his who assists him with his tasks of daily living. Pt's and son were present for the evaluation. Pt is right handed and speaks primarily Lithuanian in the home. Pt uses a wheel chair to get around and is receiving PT at [facility]. Smoking Status: Never smoker Hx Smoking: No Hx Tobacco Use: No Hx Smoking Exposure: No - Pain Is pain an issue with your current prescribed condition?: No Patient Allergies - Allergies Allergies ceftriaxone Allergy (Verified 09/08/21 08:05) Rash ciprofloxacin [From Cipro] Allergy (Verified 09/05/21 15:24) Hives sulfamethoxazole [From Bactrim] Allergy (Verified 09/05/21 15:24) PT UNSURE OF REACTION trimethoprim [From Bactrim] Allergy (Verified 09/05/21 15:24) PT UNSURE OF REACTION BDAE-3 - Reading Diagnostic Aphasia Examination Date: 09/30/21 - Severity Level: 1 Level Detail: All communication through fragmentary expression; great need for inference, questioning, & guessing by listener. Range of information exchanged is limited, & listener carries the burden of communication. - Rating Scale Profile of speech character Articulation Agility: 4 Detail: Facility at phoneme and syllable level ranges from 1 being unable to form speech sounds to 7 being never impaired Phrase length: 5 Detail: Longest occasional uninterrupted word runs Grammatical form: 5 Detail: Variety of grammatical constructions; use of grammatical mophemes: 1=nosyntactic word groupings ranging to 7 being normal range of syntax; normal facility with grammatical words Melodic Line (Prosody): 5 Detail: 1=word b word or aprosodic speech ranging to 7 being normal speech alana Paraphasia in running speech: 1 Detail: 1 present in evrey utterance ranging to 7 s absent Word finding relative to fluency: 4 Detail: 1 is fluent but empty speech ranging to 7 as output primarily content words - Summary Profile Conversation/Speech Simple social responses Percentile: 10-20th - Summary Profile Auditory Comprehension Basic word discrimination Percentile: 40-60th Commands Percentile: 0 Complex Ideational Material Percentile: 0 - Summary Profile Recitation Recitation automatized sequences Percentile: 100th - Summary Profile Repitition Words Percentile: 30th Sentences Percentile: 30th - Summary Profile Naming Responsive Naming Percentile: 0 Reading Naming Test Percentile: 60-80th - Summary Profile Paraphasia Phonemic example- Jermaine for [place]: present Verbal examples - for : present Neologistic - example planker for comb: present Multi-word: no - Summary Profile Reading Picture - word matchinth Oral word readinth Oral sentence readinth Oral sentence comprehension: 100th Sentences/Paragraph comprehension: 40th - Summary Profile Writing Form: 100th Letter choice: 100th Motor faclility: 100th Plan - Plan Plan: Will recommend Pt for weekly outpatient speech therapy intervention address severe expressive and receptive aphasia. Pt would benefit from verbal modeling, verbal/visual cuing, repeated practice, comprehension practice, circumlocution training, and immediate feedback to improve his receptive and expressive language deficits. Without skilled intervention Pt is at risk for difficulty communicating basic, medical, emergent, social wants & needs, and interacting with family/friends at home, and during social interactions. - Recommendations MBS: No Treatment Warranted: Yes Treatment Warranted: Receptive/ Expressive Language - Progress Prognosis: Good - Frequency Frequency: 2x /Week Duration: 4-6 Months - Goal #1-5 Goal #1: Patient will name common objects to facilitate increased communication and decreased frustration with 90% acc on 3/4 measured sessions. Goal #2: Patient will describe common objects with at least 4 details (what does it look like, where can you find it, what is it made of, etc.) to facilitate increased communication via circumlocution and decreased frustration with 90% acc on 3/4 measured sessions. Goal #3: To increase auditory comprehension, Pt will answer simple WH and y/n questions presented verbally with 80% acc during 3/4 measured sessions. Goal #4: Pt will complete phrase and sentence completion tasks presented verbally and in a written form to facilitate communication with 80% acc during 3/4 measured sessions. Goal #5: Pt will follow 2 step directions presented verbally with 80% acc during 3/4 measured sessions. - Goal #6-10 Goal #6: Pt will repeat words and sentences to check his understanding of the speaker's message with 80% acc during 3/4 measured sessions. Goal #7: Pt will read short paragraphs and answer questions about the story with 80% acc during 3/4 measured sessions. Education - Patient has Indicated that the Following Identified Educational Needs: Language Barrier - Patient Instruction Patient Education: Diagnosis, Treatment Plan, Goals Person Taught: Patient, Family Teaching Method: Discussion Response to teaching: Verbalize understanding, Reinforcement needed
--- NOTE | 2021-10-02 16:06 | HP.PTEVAL_ITS ---
Patient's Visit Information IGNACIO AQUINO is a 76 year old M referred to Physical Therapy by Dr. 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 Date of Evaluation: 09/30/21 Physical Therapist: Srinivasan Gonsales DPT - Visit Plan Frequency: 2-3x /Week Duration: 6 Weeks Plan: Start with BLE strengthening, functional mobility strengthening, gait progression with FWW, bed mobility. Use bike for to cardio as needed. (progress to I). - Subjective Pt. 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 DOI: 07/22/21. Pt. was transferred to [facility] then to [facility] rehab unit for ~4 weeks then TCU for 4 weeks. He is now at outpatient therapy for his subsequent weakness. Ignacio is a plesent 76 y/o male accompanied by his son and spouse. He is having some trouble with sequencing sentences, son was available to fill in g aps. Pt. denies pain. He did report some visual issues, but no major. He reports some R sided weakness, but also had an underlying LE weakness after sustaining a C5-C6 incomplete spinal cord injury. Prior to recent injury he was walking a little bit with Bilat quad canes, use of motorized wc in home and manual chair for the rest of his mobility outside of home. Son and spouse report was walking a little bit in home in hallways. He was able to get in out of chair with assistance, he was able to dress LEs and get in/out of bed I. He is retired and spouse is able to help at home and both sons help out periodically throughout the day. Family is hopeful for Ignacio to get back to [facility]. - Objective POSTURE: Pt. nieto flexed posture in stance. He is unable to stand without external assistance from balance aide. Sitting posture: He is still slightly flexed, but able to sit independently with use of UEs. PALPATION: no issues with palpation of BLEs. NEURO: Pt. has decreased DTR of BLEs 1+ B achilles and patellar. Pt. reports intermittent sensation to light touch throughout BLEs. ROM: B ankles: slight tightness in B calves, tight B hamstrings, but B knees and hips move with in normal limits. No pain with testing. MMT: RLE: ankle: DF 11#, PF 17#; knee: ext 24#, flexion 16#; hip: flexion 0# (3-/5), abd 0# (3-/5), ext 3/5; LLE: ankle: DF 14#, PF 21#; knee: ext 26#, flexion 21#; hip: flexion 0# (3-/5), abd 0# (3-/-5); ext 3/5. Core strength- poor. GAIT: Pt. is able to ambulate with FWW with CGA. He has very difficult time advance BLEs. He shuffles his feet, on tile was doing okay, but more more difficult on carpet. He heavily leans on FWW to complete. He has a difficulty time with any hip flexion, and ends up taking very reduced step length. He as able to ambulate 72feet prior to needing to sit secondary to fatigue. Sit to stand Txs: Sotero with use of UEs, unable to complete without use of UEs. SPT: with FWW CGA for safety, but otherwise well. sitting to supine: Pt. needs heavy assistance for LEs. supine to sitting: heavy assistance for LEs and trunk to get up. He has marked weakness in B hips, greatest into hip flexion and abd which is evident with his gait pattern and difficulty lifting his legs to get in/out of bed. - Balance/Special Test Scores Lower Extremity Functional Score: 17 TUG Test Time Seconds: 38 - Goals Goal 1:: LTG: Pt. to be I with HEP for LE/core strengthening and balance. Goal Time Frame: 4-6 Weeks Goal 2:: STG: Pt. to be able to complete all transfers Mod I with use of FWW. Goal Time Frame: 2-4 Weeks Goal 3:: LTG: Pt. to have increased BLE strength by at least 10# in all effected areas allowing for increased ability to complete his functional mobility. Goal Time Frame: 4-6 Weeks Goal 4:: STG: Pt. to complete supine to sitting and sitting to supine transfers Mod I without use of external aides. Goal Time Frame: 2-4 Weeks Goal 5:: LTG: Pt. to be able to ambulate at least 150 feet with FWW with improved step length and increased foot clearance for safety allowing for SOTERO mobility in home. Goal Time Frame: 4-6 Weeks Goal 6:: LTG: Pt. to complete TUG assessment with time of less than 30 sec indicating increased functional mobility/safety. Goal Time Frame: 4-6 Weeks - Rehabilitation Potential Physical Therapy Diagnosis: Pt. 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 Pt. has marked BLEs weakness limiting his I functional mobility. Pt. would benefit from PT to address his marked weakness, difficulty walking, difficulty with transfers, imbalance and difficulty with getting in/out of bed. Rehabilitation Potential: Good - Anticipated Interventions Patient/Client Instruction: Educate patient on: Condition, Plan of Care, Risk Factors, Benefits of Fitness Program For the Purpose of:: To improve decision making, To facilitate caregiver knowledge, To improve self management, To prevent re-injury, To improve ability to perform tasks related to life management, To improve tolerance to ADL's Therapeutic Exercise to Include: Strength training, Power training, Endurance training, Balance training, Body mechanics, Postural training, Flexibilty training, Gait and locomotor training For the Purpose of:: To decrease pain, To decrease swelling/inflammation, To increase ROM, To improve nutrient delivery to tissue, To improve health of tissue, To decrease soft tissue restriction, To increase flexibility/ROM Thank you for the opportunity to evaluate your patient. For Medicare and Medicare HMO plans, please review the plan of care and approve it. It will need to be FAXED BACK to us at [phone] for Medicare purposes. For Medicare only, by signing this I certify the plan of care. Please let me know if there are questions or concerns regarding this plan of care. Physician Signature: Date:
--- NOTE | 2021-11-06 14:55 | HP.PTREVAL_ITS ---
Dr. 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 Please see the progress note below for an update on the physical therapy plan of care! Subjective: Pt. arrives from ST this date. Pt. reports doing better. His spouse also reports increased mobility at home, but is still not quite like how he was prior to CVA. Objective/Function: MMT: RLE: ankle: DF 14#, PF 21#; knee: ext 31#, flexion 19#; hip: flexion 0# (3-/5, able to initially hold against gravity), abd 0# (3-/5), ext 3/5; LLE: ankle: DF 14#, PF 23#; knee: ext 27#, flexion 25#; hip: flexion 0# (3-/5), abd 0# (3-/-5); ext 3/5. Core strength- poor. GAIT: Pt. ambulated with FWW this date with improved ability to advance his LEs, he still has trouble with hip flexion, but increased step length. He was able to ambulate 112feet today with FWW. Sit to stand Txs: Sotero with use of UEs, unable to complete without use of UEs. SPT: with FWW CGA for safety, but otherwise well. sitting to supine: Pt. was able to complete sit to supine, supine to sitting without. supine to sitting: Pt. able to complete with a little assistance for LLE, but able to complete rest without Assistance, extended time to complete. TU.7sec with FWW. 30sec sit to stand rep test 9 with use of UEs on AD. Pt. is able to stand from mat with pushing up from legs x1 attempt Plan Plan: I am recerting Beatrice for another 6 weeks to work on BLE strengthening, working on hip flexion strengthening, bed mobility and gait progression. Balance/Gait/Functional tests - Balance/Special Test Scores Lower Extremity Functional Score: 22 TUG Test Time Seconds: 46.7 Tug Test: >30sec.=impaired mobility 30 Second Chair Rise Test Seconds: 9 Goals Goal 1:: LTG: Pt. to be I with HEP for LE/core strengthening and balance. Goal Time Frame: 4-6 Weeks Goal 2:: STG: Pt. to be able to complete all transfers Mod I with use of FWW. Goal Time Frame: 2-4 Weeks Goal Progress: Progressing Goal 3:: LTG: Pt. to have increased BLE strength by at least 10# in all effected areas allowing for increased ability to complete his functional mobility. Goal Time Frame: 4-6 Weeks Goal Progress: Progressing Goal 4:: STG: Pt. to complete supine to sitting and sitting to supine transfers Mod I without use of external aides. Goal Time Frame: 2-4 Weeks Goal Progress: Progressing Goal 5:: LTG: Pt. to be able to ambulate at least 150 feet with FWW with improved step length and increased foot clearance for safety allowing for SOTERO mobility in home. Goal Time Frame: 4-6 Weeks Goal Progress: Progressing Goal 6:: LTG: Pt. to complete TUG assessment with time of less than 30 sec indicating increased functional mobility/safety. Goal Time Frame: 4-6 Weeks Goal Progress: Progressing Anticipated Interventions Patient/Client Instruction: Educate patient on: Condition, Plan of Care, Risk Factors, Benefits of Fitness Program For the Purpose of:: To improve decision making, To facilitate caregiver knowledge, To improve self management, To prevent re-injury, To improve ability to perform tasks related to life management, To improve tolerance to ADL's Therapeutic Exercise to Include: Strength training, Power training, Endurance training, Balance training, Body mechanics, Postural training, Flexibilty training, Gait and locomotor training For the Purpose of:: To decrease pain, To decrease swelling/inflammation, To increase ROM, To improve nutrient delivery to tissue, To improve health of tissue, To decrease soft tissue restriction, To increase flexibility/ROM Please do not hesitate to contact me at [phone] by phone or if you have questions or concerns regarding this new plan of care! Sincerely, Srinivasan Gonsales DPT
--- NOTE | 2021-11-27 14:58 | HP.OTDCSUM_ITS ---
It has been my pleasure to treat DANNY AQUINO under orders from Dr. Tunde Beard DO, for the diagnosis of Stroke for a total of 18 visit(s). Please see the following information for a summary of their discharge status. % Improvement: 40 Objective/Function: 9HPT- L- 34 seconds this is improved from 37sec. 9HPT- R- 38 seconds (goal was 49 seconds). Lateral pinch L- 19#. Lateral pinch R- 16#. 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 L- elbow at side- 80# increase from 60#. pt has met OT goals at this time Patient Goals: Return to Work, Improve Fine Motor Skills, Use Hand/Wrist/Arm Normally Again, Be More Independent in ADLS, Resume Former Household Responsibilities (Cooking,Cleaning,Yard, etc.), Resume Hobbies Goal:: Pt to demo improved R lateral pinch strength by 3# in order to improve pt's functional indep in fine motor activities and ADLs. Goal:: Pt to demo improved R 9HPT by decreasing time by 10 seconds in order to manipulate smaller objects with greater accuracy and speed. Pt to demo improved R in-hand manipulation skills to promote good intrinsic strength to perform work tasks. Pt to demo improved R hand coordination to complete writing activities with overall good legibility to promote indep at work and to assist as a functional form of communication. Goal:: Pt to demo decreased quick DASH score by 10% in order to demonstrate improved functional indep at home. Plan: cont with OT POC Discharge Comments: pt was seen for 18 OT visits to increase strength- pt met OT goals - pt and pts agree with d.c from OT and will continue with speech and physical therapy. If there are questions or concerns regarding this patient's occupational therapy, please fell free to call me at [phone]. Thank you for the referral of this patient. Sincerely, Lulu Chappell, OTR/L, CHT
--- NOTE | 2021-12-23 12:10 | HP.PTREVAL_ITS ---
Dr. 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 Please see the progress note below for an update on the physical therapy plan of care! Subjective: Pt. reports doing better, but not all the way there. Pt. reports overall no pain today. Objective/Function: TUsec with FWW, 46.5sec with use of 2 quad canes. GAIT: Pt. ambulated with FWW 1x170' with improved step length, but as he fatigued his gait pattern digressed. He walked 1x145' with quad canes with surprisingly good control. He had decent foot clearance, but again digressed as he continued. He still has some trouble getting his LEs into bed secondary to LE hip flexor weakness. Overall he is improving, but I would like him to be able to have increased stability with gait and improve his foot clearance with gait. Plan Plan: Trial quad canes vs FWW with gait. Cont. to work on hip flexor strength or adaptions to increase foot clearane with gait and ability to get LEs in/out of bed. Balance/Gait/Functional tests - Balance/Special Test Scores Lower Extremity Functional Score: 22 TUG Test Time Seconds: 46.7 Tug Test: >30sec.=impaired mobility 30 Second Chair Rise Test Seconds: 9 Goals Goal 1:: LTG: Pt. to be I with HEP for LE/core strengthening and balance. Goal Time Frame: 4-6 Weeks Goal Progress: Progressing Goal 2:: STG: Pt. to be able to complete all transfers Mod I with use of FWW. Goal Time Frame: 2-4 Weeks Goal Progress: Progressing Goal 3:: LTG: Pt. to have increased BLE strength by at least 10# in all effected areas allowing for increased ability to complete his functional mobility. Goal Time Frame: 4-6 Weeks Goal Progress: Progressing Goal 4:: STG: Pt. to complete supine to sitting and sitting to supine transfers Mod I without use of external aides. Goal Time Frame: 2-4 Weeks Goal Progress: Progressing Goal 5:: LTG: Pt. to be able to ambulate at least 150 feet with FWW with improved step length and increased foot clearance for safety allowing for SOTERO mobility in home. Goal Time Frame: 4-6 Weeks Goal Progress: Progressing Goal 6:: LTG: Pt. to complete TUG assessment with time of less than 30 sec indicating increased functional mobility/safety. Goal Time Frame: 4-6 Weeks Goal Progress: Progressing Anticipated Interventions Patient/Client Instruction: Educate patient on: Condition, Plan of Care, Risk Factors, Benefits of Fitness Program For the Purpose of:: To improve decision making, To facilitate caregiver knowledge, To improve self management, To prevent re-injury, To improve ability to perform tasks related to life management, To improve tolerance to ADL's Therapeutic Exercise to Include: Strength training, Power training, Endurance training, Balance training, Body mechanics, Postural training, Flexibilty training, Gait and locomotor training For the Purpose of:: To decrease pain, To decrease swelling/inflammation, To increase ROM, To improve nutrient delivery to tissue, To improve health of ti ssue, To decrease soft tissue restriction, To increase flexibility/ROM Please do not hesitate to contact me at [phone] by phone or if you have questions or concerns regarding this new plan of care! Sincerely, Srinivasan Gonsales DPT
--- NOTE | 2021-12-23 15:43 | HP.SPREEV_ITS ---
History - History Date of Eval: 09/30/21 Results: Ignacio is a 76 year old man who was seen at [facility] for a speech and language evaluation. Pt had a CVA in June 2021 and was treated at [facility] for 9 weeks. Pt received speak therapy for expressive and receptive aphasia on the TCU floor. Reports indicate that Pt has made significant improvement in naming. Pt lives at home with his who assists him with his tasks of daily living. Pt's and son were present for the evaluation. Pt is right handed and speaks primarily Frisian in the home. Pt uses a wheel chair to get around and is receiving PT at [facility]. Smoking Status: Never smoker Hx Smoking: No Hx Tobacco Use: No Hx Smoking Exposure: No - Pain Is pain an issue with your current prescribed condition?: No Patient Allergies - Allergies Allergies ceftriaxone Allergy (Verified 12/04/21 12:44) Rash ciprofloxacin [From Cipro] Allergy (Verified 12/04/21 12:44) Hives sulfamethoxazole [From Bactrim] Allergy (Verified 12/04/21 12:44) PT UNSURE OF REACTION trimethoprim [From Bactrim] Allergy (Verified 12/04/21 12:44) PT UNSURE OF REACTION Previous/Current Goals - Goals 1-5 Previous Goal #1: Patient will name common objects to facilitate increased communication and decreased frustration with 90% acc on 3/4 measured sessions. Goal 1 Status: Goal Partially Met: Pt was able to name common objects with 94% acc, increased to 100% with phonemic and descriptive cues. Increased speed during this exercise Previous Goal #2: Patient will describe common objects with at least 4 details (what does it look like, where can you find it, what is it made of, etc.) to facilitate increased communication via circumlocution and decreased frustration with 90% acc on 3/4 measured sessions. Goal 2 Status: Goal Progressing: Pt described 4 feature of pizza with 80% acc given min verbal cues. Previous Goal #3: To increase auditory comprehension, Pt will answer simple WH and y/n questions presented verbally with 80% acc during 3/4 measured sessions. Goal 3 Status: Goal Progressing: Pt answered questions with 65% acc during conversation, increased to 80% with white board, repetition, and phonetic cues as needed. Previous Goal #4: Pt will complete phrase and sentence completion tasks presented verbally and in a written form to facilitate communication with 80% acc during 3/4 measured sessions. Goal 4 Status: Goal Progressing: Pt corrected inconsistencies in sentences with 70% acc, increased to 100% with choice of 3 verbal cues and phonemic cues Previous Goal #5: Pt will follow 2 step directions presented verbally with 80% a cc during 3/4 measured sessions. Goal 5 Status: Goal Progressing: Pt followed 2 step directions presented in a written form with 50% acc. Pt with difficulty with underline vs over line - Goals 6-10 Previous Goal #6: Pt will repeat words and sentences to check his understanding of the speaker's message with 80% acc during 3/4 measured sessions. Goal 6 Status: Goal Progressing: Worked on having a conversation and clarifying unclear messages with white board and mod verbal cues. Provided copies of helpful conversation tips for family members Previous Goal #7: Pt will read short paragraphs and answer questions about the story with 80% acc during 3/4 measured sessions. Goal 7 Status: Goal Progressing: Pt read a short paragraph and answered wh question with 70% acc, increased to 90% with mod verbal cues. Subjective Cog/Ling/Com - Subjective Cognitive/Linguistic/Communication: Pt has made significant progress in his ability to name common objects, comprehending the speaker's message during conversation and utilizing compensatory strategies during sessions. Pt have continued difficulty with describing, asking for repetition, story telling, articulation, and auditory comprehension. Pt's family notes improvement with communication overall and an increased willingness to participate in conversations. Family and pt also difficulty with word finding during conversations, auditory comprehension and using compensatory strategies at home. Pt still complains of frustration with daily conversation and the ability to accurately express himself. BDAE-3 - [place] Diagnostic Aphasia Examination Date: 09/30/21 - Severity Level: 1 Level Detail: All communication through fragmentary expression; great need for inference, questioning, & guessing by listener. Range of information exchanged is limited, & listener carries the burden of communication. - Rating Scale Profile of speech character Articulation Agility: 4 Detail: Facility at phoneme and syllable level ranges from 1 being unable to form speech sounds to 7 being never impaired Phrase length: 5 Detail: Longest occasional uninterrupted word runs Grammatical form: 5 Detail: Variety of grammatical constructions; use of grammatical mophemes: 1=nosyntactic word groupings ranging to 7 being normal range of syntax; normal facility with grammatical words Melodic Line (Prosody): 5 Detail: 1=word b word or aprosodic speech ranging to 7 being normal speech alana Paraphasia in running speech: 1 Detail: 1 present in evrey utterance ranging to 7 s absent Word finding relative to fluency: 4 Detail: 1 is fluent but empty speech ranging to 7 as output primarily content words - Summary Profile Conversation/Speech Simple social responses Percentile: 10-20th - Summary Profile Auditory Comprehension Basic word discrimination Percentile: 40-60th Commands Percentile: 0 Complex Ideational Material Percentile: 0 - Summary Profile Recitation Recitation automatized sequences Percentile: 100th - Summary Profile Repitition Words Percentile: 30th Sentences Percentile: 30th - Summary Profile Naming Responsive Naming Percentile: 0 [place] Naming Test Percentile: 60-80th - Summary Profile Paraphasia Phonemic example- Jermaine for [place]: present Verbal examples - for : present Neologistic - example planker for comb: present Multi-word: no - Summary Profile Reading Picture - word matchinth Oral word readinth Oral sentence readinth Oral sentence comprehension: 100th Sentences/Paragraph comprehension: 40th - Summary Profile Writing Form: 100th Letter choice: 100th Motor faclility: 100th Plan - Plan Plan: Will recommend Pt for weekly outpatient speech therapy intervention address moderate expressive and receptive aphasia. Pt would benefit verbal and visual modeling, verbal/visual and tactile cuing, repeated practice, circumlocution training, and immediate feedback to improve articulation. Without skilled intervention Pt is at risk for difficulty communicating basic, medical, emergent, social wants & needs, and interacting with family/friends at home, and during social interactions. - Recommendations MBS: No Treatment Warranted: Yes Treatment Warranted: Receptive/ Expressive Language - Progress Prognosis: Good - Frequency Frequency: 2x /Week Duration: 4 Weeks - Goals that are Established Determination:: Goals will be added/modified as deemed necessary and appropriate. Therapy will be discontinued when results of re-evaluation indicate therapy is no longer needed or lack of progress has been documented. - Goal #1-5 Goal #1: Patient will name common objects to facilitate increased communication and decreased frustration with 90% acc on 3/4 measured sessions. Goal #2: Patient will describe common objects with at least 4 details (what does it look like, where can you find it, what is it made of, etc.) to facilitate increased communication via circumlocution and decreased frustration with 90% acc on 3/4 measured sessions. Goal #3: To increase auditory comprehension, Pt will answer simple WH and y/n questions presented verbally with 80% acc during 3/4 measured sessions. Goal #4: Pt will complete phrase and sentence completion tasks presented verbally and in a written form to facilitate communication with 80% acc during 3/4 measured sessions. Goal #5: Pt will follow 2 step directions presented verbally with 80% acc during 3/4 measured sessions. - Goal #6-10 Goal #6: Pt will repeat words and sentences to check his understanding of the speaker's message with 80% acc during 3/4 measured sessions. Goal #7: Pt will read short paragraphs and answer questions about the story with 80% acc during 3/4 measured sessions. Education - Patient has Indicated that the Following Identified Educational Needs: Language Barrier - Patient Instruction Patient Education: Diagnosis, Treatment Plan, Goals Person Taught: Patient, Family Teaching Method: Discussion Response to teaching: Verbalize understanding, Reinforcement needed
--- NOTE | 2022-01-19 11:42 | HP.PTREVAL ---
Dr. 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 Please see the progress note below for an update on the physical therapy plan of care! Subjective: Pt. reports overall doing well. Pt. would like to work on increasing walking and his ability to lift his legs. He is walking more at home, ~50-75feet periodically throughout the day. He spends the rest of his time in his chair. Objective/Function: TU.1sec with FWW. gait 189.9feet with FWW and SBA, he started out well with step length, but still has reduction in foot clearance, barely clears floor at times. bed mobility: Mónica for 1 LE, he was able to get his alternate leg in by him self. He was able to get both legs out without assistance. Standing hip marching, patient able to assist, but unable to effectively complete on his own. R worse than L. He was able to slightly maintain hip flexed positioning after assistance to get there. I would like to work a bit more on this negative like motion in order to increase hip flexor strength allowing for better foot clearance and step length. Overall he has improved since last time I saw him and I would like to cointinue x2 per week with focus on the above limitations. Plan Plan: I will continue to see danny with focus on assitive hip flexion (negatives) to increase step length, ability to get LEs in/out of bed and gait progression. Balance/Gait/Functional tests - Balance/Special Test Scores Lower Extremity Functional Score: 27 TUG Test Time Seconds: 37.1 Tug Test: >30sec.=impaired mobility 30 Second Chair Rise Test Seconds: 9 Goals Goal 1:: LTG: Pt. to be I with HEP for LE/core strengthening and balance. Goal Time Frame: 4-6 Weeks Goal Progress: Goal Met Goal 2:: STG: Pt. to be able to complete all transfers Mod I with use of FWW. Goal Time Frame: 2-4 Weeks Goal Progress: Progressing Goal 3:: LTG: Pt. to have increased BLE strength by at least 10# in all effected areas allowing for increased ability to complete his functional mobility. Goal Time Frame: 4-6 Weeks Goal Progress: Progressing Goal 4:: STG: Pt. to complete supine to sitting and sitting to supine transfers Mod I without use of external aides. Goal Time Frame: 2-4 Weeks Goal Progress: Progressing Goal 5:: LTG: Pt. to be able to ambulate at least 150 feet with FWW with improved step length and increased foot clearance for safety allowing for SOTERO mobility in home. Goal Time Frame: 4-6 Weeks Goal Progress: Goal Met Goal 6:: LTG: Pt. to complete TUG assessment with time of less than 30 sec indicating increased functional mobility/safety. Goal Time Frame: 4-6 Weeks Goal Progress: Progressing Anticipated Interventions Patient/Client Instruction: Educate patient on: Condition, Plan of Care, Risk Factors, Benefits of Fitness Program For the Purpose of:: To improve decision making, To facilitate caregiver knowledge, To improve self management, To prevent re-injury, To improve ability to perform tasks related to life management, To improve tolerance to ADL's Therapeutic Exercise to Include: Strength training, Power training, Endurance training, Balance training, Body mechanics, Postural training, Flexibilty training, Gait and locomotor training For the Purpose of:: To decrease pain, To decrease swelling/inflammation, To increase ROM, To improve nutrient delivery to tissue, To improve health of tissue, To decrease soft tissue restriction, To increase flexibility/ROM Please do not hesitate to contact me at [phone] by phone or if you have questions or concerns regarding this new plan of care! Sincerely, Srinivasan Gonsales DPT
--- NOTE | 2022-01-28 16:13 | HP.SPREEV_ITS ---
History - History Date of Eval: 09/30/21 Results: Ignacio is a 76 year old man who was seen at [facility] for a speech and language evaluation. 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 Pt received speak therapy for expressive and receptive aphasia on the TCU floor. Reports indicate that Pt has made significant improvement in naming. Pt lives at home with his who assists him with his tasks of daily living. Pt's and son were present for the evaluation. Pt is right handed and speaks primarily Azeri in the home. Pt uses a wheel chair to get around and is receiving PT at [facility]. Smoking Status: Never smoker Hx Smoking: No Hx Tobacco Use: No Hx Smoking Exposure: No - Pain Is pain an issue with your current prescribed condition?: No Patient Allergies - Allergies Allergies ceftriaxone Allergy (Verified 12/04/21 12:44) Rash ciprofloxacin [From Cipro] Allergy (Verified 12/04/21 12:44) Hives sulfamethoxazole [From Bactrim] Allergy (Verified 12/04/21 12:44) PT UNSURE OF REACTION trimethoprim [From Bactrim] Allergy (Verified 12/04/21 12:44) PT UNSURE OF REACTION Previous/Current Goals - Goals 1-5 Previous Goal #1: Patient will name common objects to facilitate increased communication and decreased frustration with 90% acc on 3/4 measured sessions. Goal 1 Status: GOAL MET: Pt named common objects with 90% acc or higher during 3 sessions given repetition as needed. Previous Goal #2: Patient will describe common objects with at least 4 details (what does it look like, where can you find it, what is it made of, etc.) to facilitate increased communication via circumlocution and decreased frustration with 90% acc on 3/4 measured sessions. Goal 2 Status: GOAL PROGRESSING: Pt described 5/6 features of hand nurse consultant with semantic features analysis (use, action, with mod verbal cues. Pt described 3/6 features of cookies with max cues. Previous Goal #3: To increase auditory comprehension, Pt will answer simple WH and y/n questions presented verbally with 80% acc during 3/4 measured sessions. Goal 3 Status: GOAL PROGRESSING: Pt answered questions with 75% acc during conversation, increased to 85% with white board, repetition, and phonemic cues. Previous Goal #4: Pt will complete phrase and sentence completion tasks presented verbally and in a written form to facilitate communication with 80% acc during 3/4 measured sessions. Goal 4 Status: GOAL PROGRESSING: Pt completed a fill in the word activity with 66% I, increased to 90% with min to mod verbal and phonemic cues Previous Goal #5: Pt will follow 2 step directions presented verbally with 80% acc during 3/4 measured sessions. Goal 5 Status: GOAL PROGRESSING: Pt follows 1-2 step directions during sessions with mod cues. Pt requires repetition when given directions for tasks. - Goals 6-10 Previous Goal #6: Pt will repeat words and sentences to check his understanding of the speaker's message with 80% acc during 3/4 measured sessions. Goal 6 Status: GOAL PROGRESSING: Worked on having a conversation and clarifying unclear messages with white board and min verbal cues and implementation of word finding & fluency strategies. Pt used mod cues to circumlocution word today. When Pt does not understand the speaker, he will repeat back and ask for clarification when prompted by ST. Previous Goal #7: Pt will read short paragraphs and answer questions about the story with 80% acc during 3/4 measured sessions. Goal 7 Status: GOAL PARTIALLY MET: Pt read a short passage and answered comprehension questions with 100% acc Subjective Cog/Ling/Com - Subjective Cognitive/Linguistic/Communication: Pt has been making progress using word finding strategies such as circumlocution, tapping out syllables, pausing. Pt still requires cues to use strategies in sessions. During conversation, Pt required mod cues to with a white board, repetition, phonemic cues to get his message across and understand what the speaker is saying. Pt expresses frustration with his word finding and comprehension difficulties that impact his relationships with his family & friends, ability to communicate with doctors, and complete tasks of daily living. BDAE-3 - [place] Diagnostic Aphasia Examination Date: 09/30/21 - Severity Level: 1 Level Detail: All communication through fragmentary expression; great need for inference, questioning, & guessing by listener. Range of information exchanged is limited, & listener carries the burden of communication. - Rating Scale Profile of speech character Articulation Agility: 4 Detail: Facility at phoneme and syllable level ranges from 1 being unable to form speech sounds to 7 being never impaired Phrase length: 5 Detail: Longest occasional uninterrupted word runs Grammatical form: 5 Detail: Variety of grammatical constructions; use of grammatical mophemes: 1=nosyntactic word groupings ranging to 7 being normal range of syntax; normal facility with grammatical words Melodic Line (Prosody): 5 Detail: 1=word b word or aprosodic speech ranging to 7 being normal speech alana Paraphasia in running speech: 1 Detail: 1 present in evrey utterance ranging to 7 s absent Word finding relative to fluency: 4 Detail: 1 is fluent but empty speech ranging to 7 as output primarily content words - Summary Profile Conversation/Speech Simple social responses Percentile: 10-20th - Summary Profile Auditory Comprehension Basic word discrimination Percentile: 40-60th Commands Percentile: 0 Complex Ideational Material Percentile: 0 - Summary Profile Recitation Recitation automatized sequences Percentile: 100th - Summary Profile Repitition Words Percentile: 30th Sentences Percentile: 30th - Summary Profile Naming Responsive Naming Percentile: 0 [place] Naming Test Percentile: 60-80th - Summary Profile Paraphasia Phonemic example- Jermaine for [place]: present Verbal examples - for : present Neologistic - example planker for comb: present Multi-word: no - Summary Profile Reading Picture - word matchinth Oral word readinth Oral sentence readinth Oral sentence comprehension: 100th Sentences/Paragraph comprehension: 40th - Summary Profile Writing Form: 100th Letter choice: 100th Motor faclility: 100th Plan - Plan Plan: Will recommend Pt for continued weekly outpatient speech therapy intervention address moderate expressive and receptive aphasia. Pt is making progress toward his current goals and pt would benefit verbal modeling for word finding strategies, semantic features analysis, verbal/visual cuing, repeated practice, speech intelligibility strategies, circumlocution training, and immediate feedback to improve articulation and fluency. Without skilled interv ention Pt is at risk for difficulty communicating basic, medical, emergent, social wants & needs, and interacting with family/friends at home, during social interactions, and at work. - Recommendations MBS: No Treatment Warranted: Yes Treatment Warranted: Receptive/ Expressive Language - Progress Prognosis: Excellent - Frequency Frequency: 2x /Week Duration: 4-6 Months - Goals that are Established Determination:: Goals will be added/modified as deemed necessary and appropriate. Therapy will be discontinued when results of re-evaluation indicate therapy is no longer needed or lack of progress has been documented. - Goal #1-5 Goal #1: Patient will describe common objects with at 5/6 details (use, action, group, association, location, description) to facilitate increased communication via circumlocution and decreased frustration with 90% acc on 3/4 measured sessions. Goal #2: To increase auditory comprehension, Pt will answer simple WH and y/n questions presented verbally with 80% acc during 3/4 measured sessions. Goal #3: Pt will complete phrase and sentence completion tasks presented verbally and in a written form to facilitate communication with 80% acc during 3/4 measured sessions. Goal #4: Pt will repeat words and sentences to check his understanding of the speaker's message with 80% acc during 3/4 measured sessions. Goal #5: Pt will read short paragraphs and answer questions about the story with 80% acc during 3/4 measured sessions. - Goal #6-10 Goal #6: Pt will utilize word finding strategies (circumlocution, pausing, tapping out syllables) and ask for clarification as needed during conversation with min cues during 90% of opportunities during 3/4 session Goal #7: Pt will produce multi-syllabic words given min cues with 80% acc during 3/4 sessions. Education - Patient has Indicated that the Following Identified Educational Needs: Language Barrier - Patient Instruction Patient Education: Diagnosis, Treatment Plan, Goals Person Taught: Patient, Family Teaching Method: Discussion Response to teaching: Verbalize understanding, Reinforcement needed
--- NOTE | 2022-03-19 10:37 | HP.SPREEV_ITS ---
History - History Date of Eval: 09/30/21 Results: Ignacio is a 76 year old man who was seen at [facility] for a speech and language evaluation. Pt had a CVA in June 2021 and was treated at [facility] for 9 weeks. Pt received speak therapy for expressive and receptive aphasia on the TCU floor. Reports indicate that Pt has made significant improvement in naming. Pt lives at home with his who assists him with his tasks of daily living. Pt's and son were present for the evaluation. Pt is right handed and speaks primarily Maltese in the home. Pt uses a wheel chair to get around and is receiving PT at [facility]. Smoking Status: Never smoker Hx Smoking: No Hx Tobacco Use: No Hx Smoking Exposure: No - Pain Is pain an issue with your current prescribed condition?: No Patient Allergies - Allergies Allergies ceftriaxone Allergy (Verified 12/04/21 12:44) Rash ciprofloxacin [From Cipro] Allergy (Verified 12/04/21 12:44) Hives sulfamethoxazole [From Bactrim] Allergy (Verified 12/04/21 12:44) PT UNSURE OF REACTION trimethoprim [From Bactrim] Allergy (Verified 12/04/21 12:44) PT UNSURE OF REACTION Previous/Current Goals - Goals 1-5 Previous Goal #1: Patient will describe common objects with at 5/6 details (use, action, group, association, location, description) to facilitate increased communication via circumlocution and decreased frustration with 90% acc on 3/4 measured sessions. Goal 1 Status: GOAL PROGRESSING: Pt completed 4/6 details with mod cues. Previous Goal #2: To increase auditory comprehension, Pt will answer simple WH and y/n questions presented verbally with 80% acc during 3/4 measured sessions. Goal 2 Status: Goal MET: Pt answered simple questions I with 80% acc without the white board. Previous Goal #3: Pt will complete phrase and sentence completion tasks presented verbally and in a written form to facilitate communication with 80% acc during 3/4 measured sessions. Goal 3 Status: Goal was not targeted in order to give priority to goals 1-2,5, 6-7. Plan to continue targeting this goal at a later date. Previous Goal #4: Pt will repeat words and sentences to check his understanding of the speaker's message with 80% acc during 3/4 measured sessions. Goal 4 Status: Goal Partially Met: Pt asked appropriate follow up questions based on what the ST said x4. Pt did not ask for repetition when he got lost x2. Previous Goal #5: Pt will read short paragraphs and answer questions about the story with 80% acc during 3/4 measured sessions. Goal 5 Status: Goal was not targeted. Priority was given to goals 1-2,4,6-7. Plan to continue targeting this goal at a later date. - Goals 6-10 Previous Goal #6: Pt will utilize word finding strategies (circumlocution, pausing, tapping out syllables) and ask for clarification as needed during conversation with min cues during 90% of opportunities during 3/4 session Goal 6 Status: Goal Progressing: Pt described common objects to target circumlocution with 63% acc I, increased to 100% with verbal and phonemic cues. Previous Goal #7: Pt will produce multi-syllabic words given min cues with 80% acc during 3/4 sessions. Goal 7 Status: Goal Progressing: Pt produced 2-3 syllable words with 75% acc and min cues. Subjective Cog/Ling/Com - Subjective Cognitive/Linguistic/Communication: Pt has been making progress using word finding strategies such as circumlocution, tapping out syllables, pausing. Pt s till requires cues to use strategies in sessions. During conversation, Pt required mod cues to with a white board, repetition, phonemic cues to get his message across and understand what the speaker is saying. Pt expresses frustration with his word finding and comprehension difficulties that impact his relationships with his family & friends, ability to communicate with doctors, and complete tasks of daily living. BDAE-3 - [place] Diagnostic Aphasia Examination Date: 09/30/21 - Severity Level: 1 Level Detail: All communication through fragmentary expression; great need for inference, questioning, & guessing by listener. Range of information exchanged is limited, & listener carries the burden of communication. - Rating Scale Profile of speech character Articulation Agility: 4 Detail: Facility at phoneme and syllable level ranges from 1 being unable to form speech sounds to 7 being never impaired Phrase length: 5 Detail: Longest occasional uninterrupted word runs Grammatical form: 5 Detail: Variety of grammatical constructions; use of grammatical mophemes: 1=nosyntactic word groupings ranging to 7 being normal range of syntax; normal facility with grammatical words Melodic Line (Prosody): 5 Detail: 1=word b word or aprosodic speech ranging to 7 being normal speech alana Paraphasia in running speech: 1 Detail: 1 present in evrey utterance ranging to 7 s absent Word finding relative to fluency: 4 Detail: 1 is fluent but empty speech ranging to 7 as output primarily content words - Summary Profile Conversation/Speech Simple social responses Percentile: 10-20th - Summary Profile Auditory Comprehension Basic word discrimination Percentile: 40-60th Commands Percentile: 0 Complex Ideational Material Percentile: 0 - Summary Profile Recitation Recitation automatized sequences Percentile: 100th - Summary Profile Repitition Words Percentile: 30th Sentences Percentile: 30th - Summary Profile Naming Responsive Naming Percentile: 0 [place] Naming Test Percentile: 60-80th - Summary Profile Paraphasia Phonemic example- Jermaine for [place]: present Verbal examples - for : present Neologistic - example planker for comb: present Multi-word: no - Summary Profile Reading Picture - word matchinth Oral word readinth Oral sentence readinth Oral sentence comprehension: 100th Sentences/Paragraph comprehension: 40th - Summary Profile Writing Form: 100th Letter choice: 100th Motor faclility: 100th Plan - Plan Plan: Will recommend Pt for weekly outpatient speech therapy intervention address moderate expressive and receptive aphasia. Pt would benefit verbal and visual modeling, verbal/visual and tactile cuing, repeated practice, circumlocution training, and immediate feedback to improve articulation. Without skilled intervention Pt is at risk for difficulty communicating basic, medical, emergent, social wants & needs, and interacting with family/friends at home, and during social interactions. - Recommendations MBS: No Treatment Warranted: Yes Treatment Warranted: Receptive/ Expressive Language - Progress Prognosis: Good - Frequency Frequency: 2x /Week Duration: 6 Months - Goals that are Established Determination:: Goals will be added/modified as deemed necessary and ap propriate. Therapy will be discontinued when results of re-evaluation indicate therapy is no longer needed or lack of progress has been documented. - Goal #1-5 Goal #1: Patient will describe common objects with at 5/6 details (use, action, group, association, location, description) and complete VNESTS to facilitate increased communication via circumlocution and decreased frustration with 90% acc on 3/4 measured sessions. Goal #2: To increase auditory comprehension, Pt will answer WH and y/n questions during conversation to prove the pt's conversational skills with 80% acc during 3/4 measured sessions. Goal #3: Pt will complete phrase and sentence completion tasks presented verbally and in a written form to facilitate communication with 80% acc during 3/4 measured sessions. Goal #4: Pt will repeat words and sentences to check his understanding of the speaker's message with 80% acc during 3/4 measured sessions. Goal #5: Pt will read short paragraphs and answer questions about the story with 80% acc during 3/4 measured sessions. - Goal #6-10 Goal #6: Pt will utilize word finding strategies (circumlocution, pausing, melodic intonation, tapping out syllables) and ask for clarification as needed during conversation with min cues during 90% of opportunities during 3/4 session. Goal #7: Pt will produce multi-syllabic words given min cues with 80% acc during 3/4 sessions. Education - Patient has Indicated that the Following Identified Educational Needs: Language Barrier - Patient Instruction Patient Education: Diagnosis, Treatment Plan, Goals Person Taught: Patient, Family Teaching Method: Discussion Response to teaching: Verbalize understanding, Reinforcement needed
== END 2022-03-26 19:00 | disposition home or self-care (01) ==
LOC: SP 15:30
PROVIDERS: PCP Preventive Medicine Occupational Medicine; Referring Provider Family Medicine Geriatric Medicine; Visit Provider Preventive Medicine Occupational Medicine
DX: G82.54 Quadriplegia, C5-C7 incomplete (principal); I69.320 Aphasia following cerebral infarction
CPT/HCPCS: 92507; 92523; 97110; 97161; 97164; 97165; 97530

== ENCOUNTER 2022-04-26 14:30 | Emergency (ER) | payer MEDICARE, OTHER, SELFPAY ==
[2022-04-26 14:31] VITALS: BP 133/82; PULSE 59; RESP 16; TEMP 36.2; O2SAT 97; BMI 35.7
--- NOTE | 2022-04-26 14:49 | EDS_ITS ---
HPI History of Present Illness Chief Complaint: General Illness Informant: patient, spouse/S.O. and family Narrative Narrative: Patient here with family with concerns of UTI. Patient has had intermittent fever for past 4 days Tmax 101, history of neurogenic bladder therefore get straight cath. Increasing weakness for last couple days able to use his walker. He had a previous cervical spine fracture 7 years ago paralyzed waist down however improved with mobility. 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 He is on Eliquis for history of paroxysmal atrial fibrillation. He has had UTIs in the past he has not had any cough. No recent vomiting or diarrhea. 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 Neurogenic bladder Neurogenic bowel Neuropathy 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.9) Paraplegia Premature ventricular contractions Prostatic hypertrophy Sick sinus syndrome Sick sinus syndrome Spinal cord injury Subluxation of C6-C7 cervical vertebrae TIA (transient ischemic attack) Home Medications lisinopril 20 mg tablet 20 mg PO DAILY blood pressure 06/24/15 [History Last Taken 03/28/19] ascorbic acid (vitamin C) 500 mg tablet 1,000 mg PO LUNCH supplement 08/17/21 [History Last Taken Unknown] carvedilol 12.5 mg tablet 12.5 mg PO Q12H BP 30 days #60 tabs 09/03/21 [Rx Last Taken Unknown] tamsulosin 0.4 mg capsule 0.4 mg PO QHS Urine retention 30 days #30 caps 09/03/21 [Rx Last Taken Unknown] citalopram 20 mg tablet 20 mg PO QHS depression 12/04/21 [History Last Taken Unknown] gabapentin 300 mg capsule 300 mg PO BID Nerve pain 12/04/21 [History Last Taken Unknown] nifedipine 30 mg tablet,extended release 15 mg PO DAILY BP 12/04/21 [History Last Taken Unknown] potassium chloride 10 mEq tablet,extended release(part/cryst) 10 meq PO BID supplement 12/04/21 [History Last Taken Unknown] apixaban 5 mg tablet (Eliquis) 5 mg PO BID blood thinner #180 tabs 01/21/22 [Rx Last Taken Unknown] Allergy/AdvReac Type Severity Reaction Status Date / Time ceftriaxone Allergy Rash Verified 04/26/22 14:34 ciprofloxacin [From Cipro] Allergy Hives Verified 04/26/22 14:34 sulfamethoxazole Allergy PT UNSURE Verified 04/26/22 14:34 [From Bactrim] OF REACTION trimethoprim [From Bactrim] Allergy PT UNSURE Verified 04/26/22 14:34 OF REACTION Family History Mother Breast cancer Cancer Brain cancer Sister Diabetes Hypertension CHF (congestive heart failure) Kidney disease Sister CHF (congestive heart failure) Cardiac defibrillator in situ Other Family history of hypertension Surgical History History of neck surgery History of permanent cardiac pacemaker placement S/P cervical spinal fusion Social History household members: spouse Smoking Status: Never smoker alcohol intake: current alcohol intake frequency: holidays/special occasions only Alcohol type: wine substance use type: does not use caffeine: Yes Type: coffee Number of servings: 1 what type of physical activity do you participate in: other details: Health point frequency: 1-2 times per week duration: 45-60 minutes/day seatbelt use: always do you feel safe at home: Yes ROS ROS ED Constitutional Constitutional ED: Reports chills and fever(s); Denies sweats Eyes Eyes: Denies change in vision ENT ENT ED: Denies dysphagia or sore throat Cardiovascular Cardiovascular: Denies chest pain, leg edema, palpitations or racing heartbeat Respiratory/Chest Respiratory/Chest: Denies cough, dyspnea or dyspnea on exertion Gastrointestinal Gastrointestinal: Denies abdominal pain, diarrhea, nausea or vomiting Genitourinary Genitourinary ED: Denies dysuria, hematuria or urinary frequency Musculoskeletal Musculoskeletal: Denies back pain, extremity pain or neck pain Integumentary Denies rash or wounds Neurologic Neurologic: Denies headache(s), paresthesias or weakness EXAM Physical Exam Const Vital Signs: 04/26/22 14:31 Temperature 97.2 F L Temperature Source Temporal Pulse Rate 59 L Respiratory Rate 16 Blood Pressure 133/82 H Blood Pressure Mean 99 Pulse Ox 97 Oxygen Delivery Method Room Air Positive well nourished and well developed General Appearance ED: well developed and NAD HEENT Reports moist mucous membranes normocephalic and atraumatic Eyes PERRL, EOMs intact bilaterally and conjunctivae normal General Eye ED: Yes normal appearance of both eyes Neck no lymphadenopathy and supple General: Negative for tenderness Chest Wall Chest: Negative for tenderness Resp normal respiratory effort and normal air movement Effort and Inspection: symmetric chest movement; Negative for respiratory distress Cardio regular rate, regular rhythm and no murmurs Peripheral Pulses: pulses 2+ throughout GI normal to inspection, nondistended, normoactive bowel sounds and non-tender Palpation: Negative for guarding or rebound tenderness present Back/Spine no CVA tenderness and no thoracic nor lumbar tenderness Extremity normal to inspection General Extremety ED: Negative for edema or tenderness General Extremity: Negative for edema Neuro oriented x3 and no sensory deficits noted Sensorium / Orientation: awake and alert Skin no rashes or lesions noted and no wounds MDM MDM MDM Narrative Medical decision making narrative: Interventions / MDM: Differential diagnosis:Febrile illness, viral syndrome, UTI Diagnosis considered but do not suspect: N/A My EKG interpretation: N/A Imaging independently reviewed and interpreted by myself: N/A External documents reviewed: N/A Test considered but not ordered:CT abdomen pelvis ED course: reporting fever and chills on and off for 4 days. They declined COVID influenza testing. No concerns for UTI with catheterization required. I did check labs White count 5.9 creatinine 1.2 to normal levels however up from 0.76 therefore was given IV fluids. Urine from catheterization positive for 100 leukocytes no white cells or nitrites. Urine culture pending. No skin findings on his urine therefore discussed likely viral syndrome causing his symptoms. Discussed [id number] for cultures before treatment. He is nontoxic. He has no cough or concerns for pneumonia. They are comfortable waiting for results with return precautions. All questions were answered. Re-evaluation: stable. Rediscussion family report there is increased abdominal distention that was reported to his PCP. However he has been having normal bowel movements he is nontender abdomen. Discussed can order CT abdomen pelvis however not likely obstruction or any acute surgical issues. They understand and will be held at this time. Disposition discussed with patient/family/significant other: Patient and family Case discussed with consulting clinician: N/A Lab Data Attestation: I reviewed the patient's lab results. Labs: Laboratory Results - last 24 hr 04/26/22 04/26/22 04/26/22 15:00 15:00 16:03 WBC 5.9 RBC 4.09 L Hgb 12.1 L Hct 36.9 L MCV 90.2 MCH 29.6 MCHC 32.8 RDW Std Deviation 48.7 H RDW Coeff of Donna 14.6 Plt Count 171 MPV 10.2 Immature Gran % (Auto) 0.300 Neut % (Auto) 71.3 H Lymph % (Auto) 16.0 L [place] % (Auto) 9.6 Eos % (Auto) 2.5 Baso % (Auto) 0.3 Absolute Neuts (auto) 4.2 Absolute Lymphs (auto) 0.95 Nucleated RBC % 0 Sodium 140 Potassium 4.0 Chloride 108 H Carbon Dioxide 24.0 Anion Gap 8 BUN 17 Creatinine 1.22 Estim Creat Clear Calc 54.02 Est GFR (MDRD) Af Amer 74 Est GFR (MDRD) Non-Af 61 BUN/Creatinine Ratio 13.9 Glucose 128 H Calcium 8.9 Urine Color Yellow Urine Clarity Clear Urine pH 7.0 Ur Specific [place] 1.010 Urine Protein Negative Urine Glucose (UA) Normal Urine Ketones Negative Urine Occult Blood 10 H Urine Nitrite Negative Urine Bilirubin Negative Urine Urobilinogen Normal Ur Leukocyte Esterase 100 H Urine RBC 0 SEEN Urine WBC 0-5 SEEN Ur Squamous Epith Cells 0 SEEN Urine Bacteria 0 SEEN Urine Mucus 0 SEEN Discharge Plan Triage Chief Complaint: General Illness ED Provider: Jayesh Pendleton Dx/Rx/DC Orders Clinical Impression: Viral illness, Neurogenic bladder, Acute renal insufficiency, Weakness Prescriptions: No Action citalopram 20 mg tablet 20 mg PO QHS gabapentin 300 mg capsule 300 mg PO BID nifedipine 30 mg tablet extended release 15 mg PO DAILY potassium chloride 10 mEq tablet,ER particles/crystals 10 meq PO BID lisinopril 20 MG tablet 20 mg PO DAILY Label Comments: BLOOD PRESSURE ascorbic acid (vitamin C) 500 mg tablet 1,000 mg PO LUNCH carvedilol 12.5 mg Tablet 12.5 mg PO Q12H 30 Days Qty: 60 0RF tamsulosin 0.4 mg Capsule 0.4 mg PO QHS 30 Days Qty: 30 0RF Eliquis 5 mg tablet 5 mg PO BID Qty: 180 4RF Primary Care Provider: Tunde Beard Referrals: Tunde Beard DO [Primary Care Provider] - 3-5 Days Activity Restrictions/Additional Instructions: Urine culture sent, if positive will call you for antibiotics. Creatinine 1.22 today in the normal range however your last creatinine was 0.7. You are given IV fluids. Continue oral fluids for hydration. Follow-up with your doctor. Return if any worsening symptoms. Disposition Disposition: Home, Self Care Discharge Date/Time: 04/26/22 17:40
[2022-04-26 15:14] LABS: Absolute Lymphocyte Count 0.95 X10^3/uL (0.83-4.51); Absolute Neutrophil Count 4.2 X10^3/uL (2.0-7.7); Basophil# 0.02 X10^3/uL; Basophil% 0.3 % (0-1); Eosinophil# 0.15 X10^3/uL; Eosinophils% 2.5 % (0-5); Hematocrit 36.9 % (40-54); Hemoglobin 12.1 g/dL (13.0-16.5); Lymphocyte # 0.95 X10^3/ul (0.83-4.51); Mean Corp Hgb Conc 32.8 g/dL (32-36); Mean Corpuscular Hgb 29.6 pg (27.0-32.0); Mean Corpuscular Volume 90.2 fL (80-94); Mean Platelet Vol. 10.2 fl (6.2-12.0); Monocyte# 0.57 X10^3/uL; Monocyte% 9.6 % (0-10); NRBC Flagged by Analyzer 0 % (0-5); Neutrophil # 4.23 X10^3/uL (2.7-7.7); Neutrophil % 71.3 % (47-70); Platelet Count 171 K/mm3 (150-450); RBC Distribution Width CV 14.6 % (11.6-14.6); RBC Distribution Width SD 48.7 fl (35.1-43.9); Red Blood Count 4.09 M/mm3 (4.6-6.2); White Blood Count 5.9 K/mm3 (4.4-11.0)
[2022-04-26 15:32] LABS: Anion Gap 8 (5-15); BUN 17 mg/dL (7-18); BUN/Creat Ratio 13.9 RATIO (10-20); Calcium,Total 8.9 mg/dL (8.5-10.1); Chloride 108 mmol/L (98-107); Creatinine, Serum 1.22 mg/dL (0.70-1.30); EST Glomerular Filtration Rate 61 mL/min (>60); Est Glom Filt Rate - Afr Amer 74 mL/min (>60); Estimated Creatinine Clearance 54.02 ml/min; Glucose 128 mg/dL (74-106); Sodium Level 140 mmol/L (136-145)
[2022-04-26 16:08] LABS: Bacteria 0 SEEN /hpf (None Seen); Mucous, Urine 0 SEEN /hpf (<or=2+); Red Blood Cells-Urine 0 SEEN /hpf (0-5); Squamous Epithelial Cells - UA 0 SEEN /hpf (0-5)
[2022-04-26 16:12] LABS: Color, Urine Yellow (Yellow); Glucose, Dipstick Normal (Normal); Ketone-Dipstick Negative (Negative); Leukocyte Esterase-Dipstick 100 /ul (Negative); Nitrite-Dipstick Negative (Negative); Occult Blood-Urine 10 /ul (Negative); Protein-Dipstick Negative (Negative); Urine Bilirubin Dipstick Negative (Negative); Urine Clarity Clear (Clear); Urine Urobilinogen Normal (Normal)
[2022-04-26 16:31] LABS: White Blood Cells 0-5 SEEN /hpf (0-5)
== END 2022-04-26 17:40 | disposition home or self-care (01) ==
PROVIDERS: Emergency Provider Emergency Medicine; PCP Preventive Medicine Occupational Medicine; Visit Provider Emergency Medicine
DX: B34.9 Viral infection, unspecified (principal); I48.0 Paroxysmal atrial fibrillation; R53.1 Weakness; N31.9 Neuromuscular dysfunction of bladder, unspecified; N28.9 Disorder of kidney and ureter, unspecified; Z79.01 Long term (current) use of anticoagulants; I10 Essential (primary) hypertension; Z79.899 Other long term (current) drug therapy; I49.3 Ventricular premature depolarization; N40.0 Benign prostatic hyperplasia without lower urinary tract symptoms; F32.A Depression, unspecified; Z95.0 Presence of cardiac pacemaker; Z86.73 Personal history of transient ischemic attack (TIA), and cerebral infarction without residual deficits
CPT/HCPCS: 80048; 81001; 85025; 87086; 87088; 99284; J7030; P9612; A4216

== ENCOUNTER 2022-08-25 09:13 | Inpatient (IN) | payer MEDICARE, OTHER, SELFPAY ==
[2022-08-25] VITALS (7 sets, daily range): BP systolic 152–170; BP diastolic 74–89; PULSE 63–74; RESP 20–27; TEMP 36.6–38.2; O2SAT 93–95; BMI 38.4; BMI 38.1
--- NOTE | 2022-08-25 09:29 | EKG12_ITS ---
Test Reason : SOB Blood Pressure : / mmHG Vent. Rate : 064 BPM Atrial Rate : 064 BPM P-R Int : 214 ms QRS Dur : 082 ms QT Int : 416 ms P-R-T Axes : 097 050 064 degrees QTc Int : 429 ms Atrial-paced rhythm with prolonged AV conduction Nonspecific ST abnormality Abnormal ECG Confirmed by MICKIE PITTS, MALLIKA ([id number]), dictionary editor HARJIT MARIN ([id number]) on 08/28/2022 9:56:15 AM Referred By: Confirmed By:BRADLEY CORADO MD
--- NOTE | 2022-08-25 09:30 | CT_ITS ---
STUDY: CT ABDOMEN AND PELVIS WITH CONTRAST REASON FOR EXAM: Male, 77 years old. Abdominal Bloating. Nausea and vomiting. UTI symptoms. RADIATION DOSAGE (If Supplied By Facility): CTDIvol = ( 19.41 ) mGy, DLP = ( 2621.40 ) mGycm TECHNIQUE: Transaxial images were obtained from the dome of the diaphragm to the symphysis pubis without oral contrast. IV 100mL Isovue-300 was administered. Sagittal and coronal images were reconstructed. Individualized dose optimization techniques were used for this CT. COMPARISON: Comparison is made with prior study dated March 30, 2019. FINDINGS: Minimal pleural effusions. Mild increased markings at the lung bases suggestive of atelectasis. Coronary artery calcification. A dual-chamber pacemaker is seen. Minimal pericardial thickening. There is decreased attenuation of the liver consistent with steatosis. There is a 1.6 m cyst in the dome of the right lobe of the liver. Normal gallbladder and extrahepatic biliary system. Normal spleen. Increased markings are seen in the peripancreatic fat suggestive of a mild degree of acute pancreatitis. Normal bilateral adrenal glands. There is a 1.3 cm cyst in the anterior midportion of the right kidney. There is a 1.1 [place] nonobstructive calculus in the lower pole calyx of the right kidney adjacent to a 3.1 cm cyst. Several small cysts are seen in the left kidney. The largest measures 4 cm and is in the lower pole. Normal visualized stomach. Normal small intestine. Normal colon. The appendix is visualized and appears normal. There is diffuse atherosclerotic calcification of the abdominal aorta and its major visceral branches., without a demonstrated aneurysm. Normal inferior vena cava. Normal retroperitoneum. Contracted diffuse bladder wall thickening with trabeculations. There is enlargement of the prostate gland. It measures 6.6 cm x 4.4 cm. Calcifications are seen within it. There is a small umbilical hernia containing fat. There are diffuse degenerative changes of the visualized lumbar spine. CT/Abdomen/Pelvis W IV Cont ONLY IMPRESSION: Minimal pleural effusions with increased markings at the lung bases suggestive of atelectasis. Findings suggestive of mild degree of pancreatitis with increased markings in the surrounding peripancreatic fat. Stable bilateral renal cysts. Nonobstructive calculus in the right kidney. Prostatic enlargement with indentation at the bladder base. Diffuse bladder wall thickening with trabeculation. Electronically Signed: Umang Guerra MD at 11:12 EDT ,
--- NOTE | 2022-08-25 09:31 | EX.ED.DYSGE1 ---
HPI History of Present Illness Chief Complaint: Weakness Narrative Narrative: 77-year-old male presents via EMS with multiple somatic complaints. History and physical is mildly limited secondary to an expressive aphasia from a cerebral vascular accident. He states that his urine has been dark for over a week and he thinks he has a urinary tract infection. He has had previous urinary tract infections in the past. He denies any fevers or chills, but it was reported that he had nausea and vomiting, and he states that his abdomen has been bloated. 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 Neurogenic bladder Neurogenic bowel Neuropathy 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.9) Paraplegia Premature ventricular contractions Prostatic hypertrophy Sick sinus syndrome Sick sinus syndrome Spinal cord injury Subluxation of C6-C7 cervical vertebrae TIA (transient ischemic attack) Home Medications lisinopril 20 mg tablet 20 mg PO DAILY blood pressure 06/24/15 [History Last Taken 03/28/19] ascorbic acid (vitamin C) 500 mg tablet 1,000 mg PO LUNCH supplement 08/17/21 [History Last Taken Unknown] carvedilol 12.5 mg tablet 12.5 mg PO Q12H BP 30 days #60 tabs 09/03/21 [Rx Last Taken Unknown] tamsulosin 0.4 mg capsule 0.4 mg PO QHS Urine retention 30 days #30 caps 09/03/21 [Rx Last Taken Unknown] citalopram 20 mg tablet 20 mg PO QHS depression 12/04/21 [History Last Taken Unknown] gabapentin 300 mg capsule 600 mg PO BID Nerve pain 12/04/21 [History Last Taken Unknown] nifedipine 30 mg tablet,extended release 15 mg PO DAILY BP 12/04/21 [History Last Taken Unknown] apixaban 5 mg tablet (Eliquis) 5 mg PO BID blood thinner #180 tabs 01/21/22 [Rx Last Taken Unknown] nitrofurantoin monohydrate/macrocrystals 100 mg capsule (Macrobid) 100 mg PO BID 05/19/22 [History Last Taken Unknown] potassium chloride 10 mEq tablet,extended release(part/cryst) 10 meq PO DAILY supplement 05/19/22 [History Last Taken Unknown] Allergy/AdvReac Type Severity Reaction Status Date / Time ceftriaxone Allergy Rash Verified 08/25/22 09:14 ciprofloxacin [From Cipro] Allergy Hives Verified 08/25/22 09:14 sulfamethoxazole Allergy PT UNSURE Verified 08/25/22 09:14 [From Bactrim] OF REACTION trimethoprim [From Bactrim] Allergy PT UNSURE Verified 08/25/22 09:14 OF REACTION Family History Mother Breast cancer Cancer Brain cancer Sister Diabetes Hypertension CHF (congestive heart failure) Kidney disease Sister CHF (congestive heart failure) Cardiac defibrillator in situ Other Family history of hypertension Surgical History History of neck surgery History of permanent cardiac pacemaker placement S/P cervical spinal fusion Social History household members: spouse Smoking Status: Never smoker alcohol intake: current alcohol intake frequency: holidays/special occasions only Alcohol type: wine substance use type: does not use caffeine: Yes Type: coffee Number of servings: 1 what type of physical activity do you participate in: other details: Health point frequency: 1-2 times per week duration: 45-60 minutes/day seatbelt use: always do you feel safe at home: Yes EXAM Physical Exam Const Vital Signs: 08/25/22 09:16 08/25/22 09:20 08/25/22 11:18 Temperature 98.7 F Temperature Source Temporal Pulse Rate 72 65 Respiratory Rate 24 H Respiratory Effort Short of Breath Respiratory Pattern Normal Blood Pressure 155/89 H 152/79 H Blood Pressure Mean 111 103 Pulse Ox 94 Oxygen Delivery Method Room Air MDM MDM MDM Narrative Medical decision making narrative: Suspicion is high for urinary tract infection. Given his nausea and vomiting, comprehensive work-up was pursued and CT will be obtained to rule out obstruction. I reviewed his laboratory work and he has a leukocytosis of 15.7 with normal hemoglobin of 14.5, platelet count normal at 207. Electrolyte panel reveals chloride elevated at 108 which I think is nonspecific. He does have an elevated BUN of 27 and a creatinine of 1.61. Glucose is appropriately elevated at 115 with a normal anion gap of 8. High-sensitivity troponin is normal at 11. He does have elevated AST and ALT at 81 and 216. Lipase is greater than 250 consistent with acute pancreatitis. He does have urinary tract infection. He will be administered aztreonam as he has ceftriaxone and ciprofloxacin allergy. Urine was sent for culture. Lactic acid normal at 1.0. CT of the abdomen and pelvis was reviewed, radiology report reveals slight stranding around the pancreas but no evidence of gallstones or obstruction. I am unsure as to the cause of his pancreatitis, but I do not feel that he is safe for discharge because he cannot take oral antibiotics because of the nausea and vomiting and pancreatitis. Patient was discussed with the hospitalist for admission. Disposition is admit in stable condition. History & Record Review Discussion w/independent historian: Patient and Family Additional record(s) reviewed:: Prior ED visit and Prior labs Lab Data Attestation: I reviewed the patient's lab results. Labs: Laboratory Results - last 24 hr 08/25/22 08/25/22 08/25/22 09:20 09:20 10:10 WBC 15.7 H RBC 4.85 Hgb 14.5 Hct 44.6 MCV 92.0 MCH 29.9 MCHC 32.5 RDW Std Deviation 51.0 H RDW Coeff of Donna 15.2 H Plt Count 207 MPV 10.8 Immature Gran % (Auto) 0.600 Neut % (Auto) 86.3 H Lymph % (Auto) 5.4 L [place] % (Auto) 7.3 Eos % (Auto) 0.3 Baso % (Auto) 0.1 Absolute Neuts (auto) 13.6 H Absolute Lymphs (auto) 0.85 Nucleated RBC % 0 Sodium 140 Potassium 3.6 Chloride 108 H Carbon Dioxide 24.0 Anion Gap 8 BUN 27 H Creatinine 1.61 H Estim Creat Clear Calc 39.03 Est GFR (MDRD) Af Amer 54 L Est GFR (MDRD) Non-Af 45 L BUN/Creatinine Ratio 16.8 Glucose 115 H Lactic Acid Calcium 9.2 Total Bilirubin 2.70 H AST 81 H ALT 216 H Alkaline Phosphatase 134 H Troponin I High Sens 11 Total Protein 7.8 Albumin 3.8 Globulin 4.0 Albumin/Globulin Ratio 1.0 Lipase > 250 H Urine Color Yellow Urine Clarity Cloudy Urine pH 6.0 Ur Specific [place] 1.020 Urine Protein 30 H Urine Glucose (UA) Normal Urine Ketones 5 H Urine Occult Blood 150 H Urine Nitrite Positive H Urine Bilirubin 1 H Urine Urobilinogen 1 H Ur Leukocyte Esterase 500 H Urine RBC 0-5 SEEN Urine WBC >100 SEEN Ur Squamous Epith Cells 0-5 SEEN Urine Bacteria 1+ Urine Mucus 0 SEEN 08/25/22 11:10 WBC RBC Hgb Hct MCV MCH MCHC RDW Std Deviation RDW Coeff of Donna Plt Count MPV Immature Gran % (Auto) Neut % (Auto) Lymph % (Auto) [place] % (Auto) Eos % (Auto) Baso % (Auto) Absolute Neuts (auto) Absolute Lymphs (auto) Nucleated RBC % Sodium Potassium Chloride Carbon Dioxide Anion Gap BUN Creatinine Estim Creat Clear Calc Est GFR (MDRD) Af Amer Est GFR (MDRD) Non-Af BUN/Creatinine Ratio Glucose Lactic Acid 1.0 Calcium Total Bilirubin AST ALT Alkaline Phosphatase Troponin I High Sens Total Protein Albumin Globulin Albumin/Globulin Ratio Lipase Urine Color Urine Clarity Urine pH Ur Specific [place] Urine Protein Urine Glucose (UA) Urine Ketones Urine Occult Blood Urine Nitrite Urine Bilirubin Urine Urobilinogen Ur Leukocyte Esterase Urine RBC Urine WBC Ur Squamous Epith Cells Urine Bacteria Urine Mucus Radiography Diagnostic Testing: Clinical Impression(s) from Imaging Studies Abdomen/Pelvis CT 08/25/22 09:30 IMPRESSION: Minimal pleural effusions with increased markings at the lung bases suggestive of atelectasis. Findings suggestive of mild degree of pancreatitis with increased markings in the surrounding peripancreatic fat. Stable bilateral renal cysts. Nonobstructive calculus in the right kidney. Prostatic enlargement with indentation at the bladder base. Diffuse bladder wall thickening with trabeculation. Electronically Signed: Umang Guerra MD at 11:12 EDT , Chest X-Ray 08/25/22 10:48 IMPRESSION: Moderate cardiomegaly with mild increased markings at the right lung base. Electronically Signed: Umang Guerra MD at 11:13 EDT , Discharge Plan Dx/Rx/DC Orders Clinical Impression: UTI (urinary tract infection), Pancreatitis, Nausea & vomiting Disposition Disposition: Acute Care [facility]
[2022-08-25] MEDS: 0.9% Normal Saline 1,000 ML 1000 ML IV (09:53)
[2022-08-25 10:06] LABS: Absolute Lymphocyte Count 0.85 X10^3/uL (0.83-4.51); Absolute Neutrophil Count 13.6 X10^3/uL (2.0-7.7); Basophil# 0.02 X10^3/uL; Basophil% 0.1 % (0-1); Eosinophil# 0.04 X10^3/uL; Eosinophils% 0.3 % (0-5); Hematocrit 44.6 % (40-54); Hemoglobin 14.5 g/dL (13.0-16.5); Lymphocyte # 0.85 X10^3/ul (0.83-4.51); Lymphocyte % 5.4 % (19-41); Mean Corp Hgb Conc 32.5 g/dL (32-36); Mean Corpuscular Hgb 29.9 pg (27.0-32.0); Mean Platelet Vol. 10.8 fl (6.2-12.0); Monocyte# 1.14 X10^3/uL; Monocyte% 7.3 % (0-10); NRBC Flagged by Analyzer 0 % (0-5); Neutrophil # 13.56 X10^3/uL (2.7-7.7); Neutrophil % 86.3 % (47-70); Platelet Count 207 K/mm3 (150-450); RBC Distribution Width CV 15.2 % (11.6-14.6); Red Blood Count 4.85 M/mm3 (4.6-6.2); White Blood Count 15.7 K/mm3 (4.4-11.0)
[2022-08-25 10:13] LABS: Mucous, Urine 0 SEEN /hpf (<or=2+)
[2022-08-25 10:15] LABS: Color, Urine Yellow (Yellow); Glucose, Dipstick Normal (Normal); Ketone-Dipstick 5 mg/dl (Negative); Leukocyte Esterase-Dipstick 500 /ul (Negative); Nitrite-Dipstick Positive (Negative); Occult Blood-Urine 150 /ul (Negative); Protein-Dipstick 30 mg/dl (Negative); Urine Clarity Cloudy (Clear); Urine Urobilinogen 1 mg/dl (Normal)
[2022-08-25 10:16] LABS: Urine Bilirubin Dipstick 1 mg/dL (Negative)
[2022-08-25 10:20] LABS: White Blood Cells >100 SEEN /hpf (0-5)
[2022-08-25 10:21] LABS: Bacteria 1+ /hpf (None Seen); Red Blood Cells-Urine 0-5 SEEN /hpf (0-5); Squamous Epithelial Cells - UA 0-5 SEEN /hpf (0-5)
[2022-08-25 10:27] LABS: AST(SGOT) 81 U/L (15-37); Alanine Aminotransfer ALT/SGPT 216 U/L (16-61); Albumin, Serum 3.8 g/dL (3.2-5.0); Alkaline Phosphatase 134 U/L (45-117); Anion Gap 8 (5-15); BUN 27 mg/dL (7-18); BUN/Creat Ratio 16.8 RATIO (10-20); Calcium,Total 9.2 mg/dL (8.5-10.1); Chloride 108 mmol/L (98-107); Creatinine, Serum 1.61 mg/dL (0.70-1.30); EST Glomerular Filtration Rate 45 mL/min (>60); Est Glom Filt Rate - Afr Amer 54 mL/min (>60); Estimated Creatinine Clearance 39.03 ml/min; Glucose 115 mg/dL (74-106); Lipase > 250 U/L (13-75); Potassium 3.6 mmol/L (3.5-5.1); Protein, Total 7.8 g/dL (6.4-8.2); Sodium Level 140 mmol/L (136-145); Troponin-I HS 11 pg/mL (3.0-78.0)
--- NOTE | 2022-08-25 10:48 | RAD_ITS ---
STUDY: X-RAY CHEST REASON FOR EXAM: Male, 77 years old. Malaise and Fatigue, CAD TECHNIQUE: Single AP portable view of the chest. COMPARISON: Comparison is made with prior study March 29, 2019. FINDINGS: EKG electrodes are seen. Mild increased markings at the right lung base suggestive of atelectasis. There is no demonstrated pleural abnormality. There is moderate cardiac enlargement. A left-sided dual-chamber pacemaker is seen. Normal mediastinum and aaliyah. Normal visualized pulmonary arteries. There is atherosclerotic tortuosity of the aortic arch and descending thoracic aorta. Normal visualized thoracic spine. Prior fusion in the lower cervical spine. There is no demonstrated abnormality of the visualized soft tissue structures of the upper abdomen. RAD/Chest 1 View (Portable) IMPRESSION: Moderate cardiomegaly with mild increased markings at the right lung base. Electronically Signed: Umang Guerra MD at 11:13 EDT ,
--- NOTE | 2022-08-25 11:45 | PN.HOSP_ITS ---
Objective Data Objective Data Vital Signs: Vital Signs Temp Pulse Resp BP Pulse Ox O2 Del Method 98.7 F 65 24 H 152/79 H 94 Room Air 08/25/22 09:16 08/25/22 11:18 08/25/22 09:16 08/25/22 11:18 08/25/22 09:16 08/25/22 09:16 Oxygen Delivery Method Room Air Weight: 118.1 kg Body Mass Index (BMI) 38.4 Intake & Output: Intake and Output for Last 24 Hours 08/23/22 08/24/22 08/25/22 23:59 23:59 23:59 Intake Total 1000 / 1000 Balance 1000 / 1000 Lab / Micro Data Result Diagrams: 08/25/22 09:20 08/25/22 09:20 Labs: Laboratory Results - last 24 hr 08/25/22 09:20: WBC 15.7 H, RBC 4.85, Hgb 14.5, Hct 44.6, MCV 92.0, MCH 29.9, MCHC 32.5, RDW Std Deviation 51.0 H, RDW Coeff of Donna 15.2 H, Plt Count 207, MPV 10.8, Immature Gran % (Auto) 0.600, Neut % (Auto) 86.3 H, Lymph % (Auto) 5.4 L, [place] % (Auto) 7.3, Eos % (Auto) 0.3, Baso % (Auto) 0.1, Absolute Neuts (auto) 13.6 H, Absolute Lymphs (auto) 0.85, Nucleated RBC % 0 08/25/22 09:20: Sodium 140, Potassium 3.6, Chloride 108 H, Carbon Dioxide 24.0, Anion Gap 8, BUN 27 H, Creatinine 1.61 H, Estim Creat Clear Calc 39.03, Est GFR (MDRD) Af Amer 54 L, Est GFR (MDRD) Non-Af 45 L, BUN/Creatinine Ratio 16.8, Glucose 115 H, Calcium 9.2, Total Bilirubin 2.70 H, AST 81 H, ALT 216 H, Alk ana [place]ula Phosphatase 134 H, Troponin I High Sens 11, Total Protein 7.8, Albumin 3.8, Globulin 4.0, Albumin/Globulin Ratio 1.0, Lipase > 250 H 08/25/22 10:10: Urine Color Yellow, Urine Clarity Cloudy, Urine pH 6.0, Ur Specific [place] 1.020, Urine Protein 30 H, Urine Glucose (UA) Normal, Urine Ketones 5 H, Urine Occult Blood 150 H, Urine Nitrite Positive H, Urine Bilirubin 1 H, Urine Urobilinogen 1 H, Ur Leukocyte Esterase 500 H, Urine RBC 0-5 SEEN, Urine WBC >100 SEEN, Ur Squamous Epith Cells 0-5 SEEN, Urine Bacteria 1+, Urine Mucus 0 SEEN Radiography Diagnostic Testing: Radiology Impression Abdomen/Pelvis CT 08/25/22 09:30 IMPRESSION: Minimal pleural effusions with increased markings at the lung bases suggestive of atelectasis. Findings suggestive of mild degree of pancreatitis with increased markings in the surrounding peripancreatic fat. Stable bilateral renal cysts. Nonobstructive calculus in the right kidney. Prostatic enlargement with indentation at the bladder base. Diffuse bladder wall thickening with trabeculation. Electronically Signed: Umang Guerra MD at 11:12 EDT , Chest X-Ray 08/25/22 10:48 IMPRESSION: Moderate cardiomegaly with mild increased markings at the right lung base. Electronically Signed: Umang Guerra MD at 11:13 EDT , Assessment & Plan Assessment/Plan PLAN: Plan Patient is a 64-year-old gentleman with past medical history significant for neck trauma with subsequent paraplegia brought to the emergency department with progressive generalized weakness.? Work-up consistent with UTI UTI. 1.? UTI with secondary to use of PRN straight cath as a result of chronic urinary retention in view of patient underlying paraplegia ?Admitted to regular nursing floor managed with IV fluids, antibiotics and cultures sent with plans to adjust antibiotics based on culture result ?03/31/2019; urine cultures came back positive for E. coli patient currently on appropriate antibiotic therapy. 3.? Essential hypertension Blood pressure controlled on lisinopril and nifedipine did continue 4.? Paraplegia following traumatic neck fracture ?Supportive care patient apparently has chronic urinary retention for which patient undergoes periodic straight cath as needed 5.? Hypokalemia ?Corrected per protocol with subsequent BMPs ordered for monitoring ?03/31/2019; potassium still remains low at 3.1 6.? BPH ?Patient is on Flomax did continue 7.? Peripheral neuropathy ?Patient is on gabapentin did continue 8.? Depression Patient is on SSRI did continue 9.? DVT prophylaxis ?On enoxaparin
--- NOTE | 2022-08-25 12:17 | HP.PCM.HOS_ITS ---
HPI - General General Date of Admission: 08/25/22 Date of Service: 08/25/22 Chief Complaint: Generalized weakness, fever and chills and nausea and vomiting HPI Narrative DANNY AQUINO, is a 77 M with past medical history significant for paraplegia following neck trauma who does self-catheterization presents with progressive generalized weakness. Patient also did experience subjective fever and chills. Per patient's who provided much of the history patient also did complain of abdominal discomfort with some bloating and had vomited a couple of times prior to being brought to the emergency department. In the ED his work-up was co nsistent with acute cystitis. Was also found to have elevated lipase levels. Subsequent CT of the abdomen and pelvis did show some stranding around the pancreas. 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 Neurogenic bladder Neurogenic bowel Neuropathy 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.9) Paraplegia Premature ventricular contractions Prostatic hypertrophy Sick sinus syndrome Sick sinus syndrome Spinal cord injury Subluxation of C6-C7 cervical vertebrae TIA (transient ischemic attack) Home Medications lisinopril 20 mg tablet 20 mg PO DAILY blood pressure 06/24/15 [History Last Taken 03/28/19] ascorbic acid (vitamin C) 500 mg tablet 1,000 mg PO LUNCH supplement 08/17/21 [History Last Taken Unknown] carvedilol 12.5 mg tablet 12.5 mg PO Q12H BP 30 days #60 tabs 09/03/21 [Rx Last Taken Unknown] tamsulosin 0.4 mg capsule 0.4 mg PO QHS Urine retention 30 days #30 caps 2 [Rx Last Taken Unknown] citalopram 20 mg tablet 20 mg PO QHS depression 12/04/21 [History Last Taken Unknown] gabapentin 300 mg capsule 300 mg PO BID Nerve pain 12/04/21 [History Last Taken Unknown] nifedipine 30 mg tablet,extended release 15 mg PO DAILY BP 12/04/21 [History Last Taken Unknown] apixaban 5 mg tablet (Eliquis) 5 mg PO BID blood thinner #180 tabs 01/21/22 [Rx Last Taken Unknown] nitrofurantoin monohydrate/macrocrystals 100 mg capsule (Macrobid) 100 mg PO BID 05/19/22 [History Last Taken Unknown] potassium chloride 10 mEq tablet,extended release(part/cryst) 10 meq PO DAILY supplement 05/19/22 [History Last Taken Unknown] Allergy/AdvReac Type Severity Reaction Status Date / Time ceftriaxone Allergy Rash Verified 08/25/22 09:14 ciprofloxacin [From Cipro] Allergy Hives Verified 08/25/22 09:14 sulfamethoxazole Allergy PT UNSURE Verified 08/25/22 09:14 [From Bactrim] OF REACTION trimethoprim [From Bactrim] Allergy PT UNSURE Verified 08/25/22 09:14 OF REACTION Family History Mother Breast cancer Cancer Brain cancer Sister Diabetes Hypertension CHF (congestive heart failure) Kidney disease Sister CHF (congestive heart failure) Cardiac defibrillator in situ Other Family history of hypertension Surgical History History of neck surgery History of permanent cardiac pacemaker placement S/P cervical spinal fusion Social History household members: spouse Smoking Status: Never smoker alcohol intake: current alcohol intake frequency: holidays/special occasions only Alcohol type: wine substance use type: does not use caffeine: Yes Type: coffee Number of servings: 1 what type of physical activity do you participate in: other details: Health point frequency: 1-2 times per week duration: 45-60 minutes/day seatbelt use: always do you feel safe at home: Yes ROS ROS Narrative GENERAL: fever, chills, night sweats, HEENT: denies headache, sinus congestion, RESPIRATORY: denies cough, sputum production, CARDIAC: denies chest pain, palpitations, orthopnea, GASTROINTESTINAL: abdominal pain, nausea, GENITOURINARY: Malodorous urine EXTREMITY: denies swelling MUSCULOSKELETAL: denies current joint pain or tenderness HEMATOLOGIC: denies easy bruising and/or hemorrhage INTEGUMENT: denies rashes PSYCHIATRIC: denies suicidal or homicidal ideation Vital Signs Vital Signs Vital Signs: 08/25/22 09:16 08/25/22 09:20 08/25/22 11:18 Temperature 98.7 F Temperature Source Temporal Pulse Rate 72 65 Respiratory Rate 24 H Respiratory Effort Short of Breath Respiratory Pattern Normal Blood Pressure 155/89 H 152/79 H Blood Pressure Mean 111 103 Pulse Ox 94 Oxygen Delivery Method Room Air 08/25/22 12:15 Temperature 98 F Temperature Source Temporal Pulse Rate 63 Respiratory Rate 27 H Respiratory Effort Respiratory Pattern Blood Pressure 158/78 H Blood Pressure Mean 104 Pulse Ox Oxygen Delivery Method Weight Weight: 118.1 kg Body Mass Index (BMI) 38.4 Physical Exam Narrative GENERAL: cooperative HEENT: Atraumatic; normocephalic EYES; Anicteric, Normal Conjunctiva NECK; supple, normal thyroid, RESPIRATORY: Diminished to auscultation CARDIOVASCULAR: Regular S1 S2, GI: normoactive bowel sounds, : No Renal angle tenderness; EXTREMITIES: No edema, no clubbing, MUSCULOSKELETAL: no muscle wasting NEURO: Awake; no lateralizing signs. SKIN: No Rash PSYCH; Flat affect Results Lab / Micro Data Result Diagrams: 08/25/22 09:20 08/25/22 09:20 Labs: Laboratory Results - last 24 hr 08/25/22 09:20: WBC 15.7 H, RBC 4.85, Hgb 14.5, Hct 44.6, MCV 92.0, MCH 29.9, MCHC 32.5, RDW Std Deviation 51.0 H, RDW Coeff of Donna 15.2 H, Plt Count 207, MPV 10.8, Immature Gran % (Auto) 0.600, Neut % (Auto) 86.3 H, Lymph % (Auto) 5.4 L, [place] % (Auto) 7.3, Eos % (Auto) 0.3, Baso % (Auto) 0.1, Absolute Neuts (auto) 13.6 H, Absolute Lymphs (auto) 0.85, Nucleated RBC % 0 08/25/22 09:20: Sodium 140, Potassium 3.6, Chloride 108 H, Carbon Dioxide 24.0, Anion Gap 8, BUN 27 H, Creatinine 1.61 H, Estim Creat Clear Calc 39.03, Est GFR (MDRD) Af Amer 54 L, Est GFR (MDRD) Non-Af 45 L, BUN/Creatinine Ratio 16.8, Glucose 115 H, Calcium 9.2, Total Bilirubin 2.70 H, AST 81 H, ALT 216 H, Alkaline Phosphatase 134 H, Troponin I High Sens 11, Total Protein 7.8, Albumin 3.8, Globulin 4.0, Albumin/Globulin Ratio 1.0, Lipase > 250 H 08/25/22 10:10: Urine Color Yellow, Urine Clarity Cloudy, Urine pH 6.0, Ur Specific [place] 1.020, Urine Protein 30 H, Urine Glucose (UA) Normal, Urine Ketones 5 H, Urine Occult Blood 150 H, Urine Nitrite Positive H, Urine Bilirubin 1 H, Urine Urobilinogen 1 H, Ur Leukocyte Esterase 500 H, Urine RBC 0-5 SEEN, Urine WBC >100 SEEN, Ur Squamous Epith Cells 0-5 SEEN, Urine Bacteria 1+, Urine Mucus 0 SEEN 08/25/22 11:10: Lactic Acid 1.0 Radiology Impression Abdomen/Pelvis CT 08/25/22 09:30 IMPRESSION: Minimal pleural effusions with increased markings at the lung bases suggestive of atelectasis. Findings suggestive of mild degree of pancreatitis with increased markings in the surrounding peripancreatic fat. Stable bilateral renal cysts. Nonobstructive calculus in the right kidney. Prostatic enlargement with indentation at the bladder base. Diffuse bladder wall thickening with trabeculation. Electronically Signed: Umang Guerra MD at 11:12 EDT , Chest X-Ray 08/25/22 10:48 IMPRESSION: Moderate cardiomegaly with mild increased markings at the right lung base. Electronically Signed: Umang Guerra MD at 11:13 EDT , Assessment & Plan Assessment/Plan (1) UTI (urinary tract infection): (2) Pancreatitis: PLAN: Plan Patient is a 77-year-old gentleman with past medical history significant for neck trauma with subsequent paraplegia brought to the emergency department with progressive generalized weakness.? Work-up consistent with UTI UTI. 1.? UTI with? secondary to use of PRN straight cath as a result of chronic urinary retention in view of patient underlying paraplegia ?Admitted to regular nursing floor managed with IV fluids, broad-spectrum antibiotic therapy with meropenem. Culture sent we will follow-up on result 2. Acute pancreatitis ? Etiology not clear admitted to regular nursing floor managed with antinausea medication pain medication PPI as well as clear liquids 3.? Essential hypertension Blood pressure controlled on lisinopril and nifedipine did continue 4.? Paraplegia following traumatic neck fracture ?Supportive care patient apparently has chronic urinary retention for which patient undergoes periodic straight cath as needed 5.? BPH ?Patient is on Flomax did continue 6. Paroxysmal A-fib ? Rate controlled on systemic anticoagulation with apixaban 7.? Peripheral neuropathy ?Patient is on gabapentin did continue 8.? Depression Patient is on SSRI did continue 9.? DVT prophylaxis ? On apixaban Time spent in the patient's overall evaluation,decision-making process, review of diagnostic data, adjustment of management, discussion with other providers, nursing nursing and ancillary staff involved in patient's care documentation, 75 Minutes Advance planning; did discuss with the patient and family regarding advanced directives as well as CODE STATUS. Did explain the various scenarios involved ( FULL CODE, DNR CCA, DNR CCA with no intubation, and DNR CC and what each meant) patient elected to remain full code with CPR and intubation if needed. Order was placed. Time spent on discussion 18 minutes. Charges/Coding Visit Charges Inpatient E&M: 27288 Init Hosp L3 Procedures Hospitalists Procedures: 16460 Advncd Care Plan 30 Min
[2022-08-25] MEDS: Ascorbic Acid 500 MG Tablet 1000 MG PO (15:33)
[2022-08-25] MEDS: Acetaminophen 500 MG Tablet 1000 MG PO ×2 (15:33→21:37)
[2022-08-25] MEDS: KCL 20MEQ in D5.45NS 20 MEQ/1,000 ML IV.SOLN. 150 MEQ IV ×2 (15:54→22:49)
[2022-08-25] MEDS: Carvedilol 12.5 MG Tablet PO (17:51)
[2022-08-25] MEDS: Potassium Chloride Oral Tablet 10 MEQ PO (17:51)
[2022-08-25] MEDS: NIFEdipine 30 MG Tablet PO (19:39)
[2022-08-25] MEDS: MELATONIN 3 MG TABLET PO (21:37)
[2022-08-25] MEDS: APIXABAN 5 MG TABLET PO (21:37)
[2022-08-25] MEDS: Citalopram 20 MG Tablet PO (21:37)
[2022-08-25] MEDS: Tamsulosin HCl 0.4 MG Capsule PO (21:37)
[2022-08-25] MEDS: Gabapentin 300 MG Capsule PO (21:37)
[2022-08-25] MEDS: hydrALAZINE 50 MG Tablet PO (22:52)
[2022-08-26] VITALS (7 sets, daily range): BP systolic 129–172; BP diastolic 65–85; PULSE 60–74; RESP 15–22; TEMP 36.6–37.1; O2SAT 93–94
[2022-08-26] MEDS: 0.9% Saline Lock 10 ML Syringe IV ×2 (02:56→18:36)
[2022-08-26] MEDS: Ondansetron 4 MG/2 ML Vial IV ×2 (02:56→18:36)
[2022-08-26] MEDS: HYDROmorphone 1 MG/ML Syringe IV ×2 (02:58→22:13)
[2022-08-26] MEDS: Calcium Carbonate 500 MG Tablet PO ×2 (03:01→18:14)
[2022-08-26] MEDS: Acetaminophen 500 MG Tablet 1000 MG PO ×3 (05:23→22:24)
[2022-08-26] MEDS: KCL 20MEQ in D5.45NS 20 MEQ/1,000 ML IV.SOLN. 150 MEQ IV (05:23)
[2022-08-26 07:09] LABS: Absolute Lymphocyte Count 1.18 X10^3/uL (0.83-4.51); Absolute Neutrophil Count 13.3 X10^3/uL (2.0-7.7); Basophil# 0.04 X10^3/uL; Basophil% 0.2 % (0-1); Eosinophil# 0.06 X10^3/uL; Eosinophils% 0.4 % (0-5); Hematocrit 37.4 % (40-54); Lymphocyte # 1.18 X10^3/ul (0.83-4.51); Lymphocyte % 7.4 % (19-41); Mean Corp Hgb Conc 32.1 g/dL (32-36); Mean Corpuscular Hgb 29.7 pg (27.0-32.0); Mean Corpuscular Volume 92.6 fL (80-94); Mean Platelet Vol. 10.4 fl (6.2-12.0); Monocyte# 1.28 X10^3/uL; NRBC Flagged by Analyzer 0 % (0-5); Neutrophil # 13.33 X10^3/uL (2.7-7.7); Neutrophil % 83.3 % (47-70); Platelet Count 158 K/mm3 (150-450); RBC Distribution Width CV 15.3 % (11.6-14.6); RBC Distribution Width SD 52.3 fl (35.1-43.9); Red Blood Count 4.04 M/mm3 (4.6-6.2)
--- NOTE | 2022-08-26 07:29 | PCM.PN.HOSP ---
Reason for Visit Reason for Visit: Diagnoses Acute pancreatitis without necrosis or infection, unspecified (08/25/22) Urinary tract infection, site not specified (08/25/22) Subjective Subjective Patient is a 77-year-old gentleman with past medical history significant for neck trauma with subsequent paraplegia brought to the emergency department with progressive generalized weakness.? Work-up consistent with UTI Objective Data Objective Data Vital Signs: Vital Signs Temp Pulse Resp BP Pulse Ox O2 Del Method 98.7 F 67 22 H 161/85 H 94 Room Air 08/26/22 02:11 08/26/22 03:51 08/26/22 02:11 08/26/22 03:51 08/26/22 02:11 08/26/22 03:00 Oxygen Delivery Method Room Air Weight: 117.163 kg Body Mass Index (BMI) 38.1 Intake & Output: Intake and Output for Last 24 Hours 08/24/22 08/25/22 08/26/22 23:59 23:59 23:59 Intake Total 2120 / 2220 1355 / 1355 Output Total 650 / 1050 1000 / 1000 Balance 1470 / 1170 355 / 355 Lab / Micro Data Result Diagrams: 08/26/22 06:55 08/26/22 06:55 Labs: Laboratory Results - last 24 hr 08/25/22 09:20: WBC 15.7 H, RBC 4.85, Hgb 14.5, Hct 44.6, MCV 92.0, MCH 29.9, MCHC 32.5, RDW Std Deviation 51.0 H, RDW Coeff of Donna 15.2 H, Plt Count 207, MPV 10.8, Immature Gran % (Auto) 0.600, Neut % (Auto) 86.3 H, Lymph % (Auto) 5.4 L, [place] % (Auto) 7.3, Eos % (Auto) 0.3, Baso % (Auto) 0.1, Absolute Neuts (auto) 13.6 H, Absolute Lymphs (auto) 0.85, Nucleated RBC % 0 08/25/22 09:20: Sodium 140, Potassium 3.6, Chloride 108 H, Carbon Dioxide 24.0, Anion Gap 8, BUN 27 H, Creatinine 1.61 H, Estim Creat Clear Calc 39.03, Est GFR (MDRD) Af Amer 54 L, Est GFR (MDRD) Non-Af 45 L, BUN/Creatinine Ratio 16.8, Glucose 115 H, Calcium 9.2, Total Bilirubin 2.70 H, AST 81 H, ALT 216 H, Alkaline Phosphatase 134 H, Troponin I High Sens 11, Total Protein 7.8, Albumin 3.8, Globulin 4.0, Albumin/Globulin Ratio 1.0, Lipase > 250 H 08/25/22 10:10: Urine Color Yellow, Urine Clarity Cloudy, Urine pH 6.0, Ur Specific [place] 1.020, Urine Protein 30 H, Urine Glucose (UA) Normal, Urine Ketones 5 H, Urine Occult Blood 150 H, Urine Nitrite Positive H, Urine Bilirubin 1 H, Urine Urobilinogen 1 H, Ur Leukocyte Esterase 500 H, Urine RBC 0-5 SEEN, Urine WBC >100 SEEN, Ur Squamous Epith Cells 0-5 SEEN, Urine Bacteria 1+, Urine Mucus 0 SEEN 08/25/22 11:10: Lactic Acid 1.0 08/26/22 06:55: WBC 16.0 H, RBC 4.04 L, Hgb 12.0 L, Hct 37.4 L, MCV 92.6, MCH 29.7, MCHC 32.1, RDW Std Deviation 52.3 H, RDW Coeff of Donna 15.3 H, Plt Count 158, MPV 10.4, Immature Gran % (Auto) 0.700, Neut % (Auto) 83.3 H, Lymph % (Auto) 7.4 L, [place] % (Auto) 8.0, Eos % (Auto) 0.4, Baso % (Auto) 0.2, Absolute Neuts (auto) 13.3 H, Absolute Lymphs (auto) 1.18, Nucleated RBC % 0 Radiography Diagnostic Testing: Radiology Impression Abdomen/Pelvis CT 08/25/22 09:30 IMPRESSION: Minimal pleural effusions with increased markings at the lung bases suggestive of atelectasis. Findings suggestive of mild degree of pancreatitis with increased markings in the surrounding peripancreatic fat. Stable bilateral renal cysts. Nonobstructive calculus in the right kidney. Prostatic enlargement with indentation at the bladder base. Diffuse bladder wall thickening with trabeculation. Electronically Signed: Umang Guerra MD at 11:12 EDT , Chest X-Ray 08/25/22 10:48 IMPRESSION: Moderate cardiomegaly with mild increased markings at the right lung base. Electronically Signed: Umang Guerra MD at 11:13 EDT , Physical Exam Narrative GENERAL: cooperative HEENT: Atraumatic; normocephalic EYES; Anicteric, Normal Conjunctiva NECK; supple, normal thyroid, RESPIRATORY: Diminished to auscultation CARDIOVASCULAR: Regular S1 S2, GI: normoactive bowel sounds, : No Renal angle tenderness; EXTREMITIES: No edema, no clubbing, MUSCULOSKELETAL: no muscle wasting NEURO: Awake; no lateralizing signs. SKIN: No Rash PSYCH; Flat affect Assessment & Plan Assessment/Plan (1) UTI (urinary tract infection): (2) Pancreatitis: PLAN: Plan Patient is a 77-year-old gentleman with past medical history significant for neck trauma with subsequent paraplegia brought to the emergency department with progressive generalized weakness.? Work-up consistent with UTI UTI. 1.? UTI secondary to use of PRN straight cath as a result of chronic urinary retention in view of patient underlying paraplegia ?Admitted to regular nursing floor managed with IV fluids, broad-spectrum antibiotic therapy with meropenem. Culture sent we will follow-up on result ? 08/26/2022 patient remains on meropenem culture sent results pending WBC count remains elevated 2. Acute pancreatitis ? Etiology not clear admitted to regular nursing floor managed with antinausea medication pain medication PPI as well as clear liquids ? 08/26/2022; plan is advance patient's diet as tolerated 3.? Essential hypertension Blood pressure controlled on lisinopril and nifedipine did continue 4.? Paraplegia following traumatic neck fracture ?Supportive care patient apparently has chronic urinary retention for which patient undergoes periodic straight cath as needed 5.? BPH ?Patient is on Flomax did continue 6. Paroxysmal A-fib ? Rate controlled on systemic anticoagulation with apixaban 7.? Peripheral neuropathy ?Patient is on gabapentin did continue 8.? Depression Patient is on SSRI did continue 9.? DVT prophylaxis ? On apixaban Time spent in the patient's overall evaluation,decision-making process, review of diagnostic data, adjustment of management, discussion with other providers, nursing nursing and ancillary staff involved in patient's care documentation, 50 Minutes Charges/Coding Visit Charges Inpatient E&M: 45642 Subs Hosp L3
[2022-08-26 07:46] LABS: AST(SGOT) 41 U/L (15-37); Alanine Aminotransfer ALT/SGPT 128 U/L (16-61); Albumin, Serum 2.9 g/dL (3.2-5.0); Alkaline Phosphatase 89 U/L (45-117); Anion Gap 5 (5-15); BUN 19 mg/dL (7-18); BUN/Creat Ratio 19.9 RATIO (10-20); Calcium,Total 8.2 mg/dL (8.5-10.1); Chloride 112 mmol/L (98-107); Creatinine, Serum 0.95 mg/dL (0.70-1.30); EST Glomerular Filtration Rate 82 mL/min (>60); Est Glom Filt Rate - Afr Amer 99 mL/min (>60); Estimated Creatinine Clearance 66.15 ml/min; Globulin 3.5 g/dL (2.2-4.2); Glucose 142 mg/dL (74-106); Potassium 3.6 mmol/L (3.5-5.1); Protein, Total 6.4 g/dL (6.4-8.2); Sodium Level 138 mmol/L (136-145)
[2022-08-26] MEDS: Carvedilol 12.5 MG Tablet PO ×2 (07:52→16:55)
[2022-08-26 08:06] LABS: Lipase 151 U/L (13-75)
[2022-08-26] MEDS: Gabapentin 300 MG Capsule PO ×2 (09:19→22:11)
[2022-08-26] MEDS: APIXABAN 5 MG TABLET PO ×2 (09:20→22:11)
[2022-08-26] MEDS: Lisinopril 20 MG Tablet PO (09:21)
[2022-08-26] MEDS: Pantoprazole Sodium 20 MG Tablet PO (09:27)
[2022-08-26] MEDS: Menthol/Lanolin/Calamine/Znox 113 GM Tube 1 APPLIC TOPICAL ×2 (09:27→23:46)
[2022-08-26] MEDS: Ascorbic Acid 500 MG Tablet 1000 MG PO (11:13)
--- NOTE | 2022-08-26 13:36 | CHAPLAIN ---
Type of Pastoral Visit _x__ Initial Visit ___ Follow-up Visit ___ On-call Visit ___ General Patient Visit ___ Spiritual Assessment ___ Family Conference ___ Bereavement ___ Rapid Response ___ Code Blue ___ Other (describe below) Pastoral Care Referral From _x__ Patient ___ Family ___ Nurse ___ Physician ___ Corn Detasseler ___ J2Ee Programmer ___ Other (describe below) Sacrament/Intervention ___ Active listening ___ Anointing ___ Restorationism ___ Bereavement ___ Communion ___ Angie exploration ___ ___ Life review _x__ Prayer ___ Reconciliation ___ Sacrament of Sick _x__ Supportive presence ___ Wedding ___ Other (describe below) Pastoral Comments patient is quietly lying down in bed; pt asked about his feelings and needs; pt stated that he simply does not feel well and just wants to rest; pt did ask for prayer and affirmed his belief that God is his helper hrough prayer; and sister are in the room and affirm desire for prayer support; no other needs made known
--- NOTE | 2022-08-26 15:54 | CASEMGMT ---
RN CM NOTE: RN CM to room to complete initial RN CM assessment. Pt resting in bed. Pt asks RN CM to call his to complete assessment, stating he doesn't talk well. Call placed to 's cell #. No answer. Unable to leave VM as VM box is full. Call to 2nd # listed in demographics under 's name. Msg received We're sorry. You're call did not go through. Attempted x 3. Unable to complete RN CM assess at this time. RN CM will attempt at a later time. Nae BSN RN CM
[2022-08-26] MEDS: Potassium Chloride Oral Tablet 10 MEQ PO (16:56)
[2022-08-26] MEDS: NIFEdipine 30 MG Tablet PO (16:56)
[2022-08-26] MEDS: Ensure Clear 120 ML Liquid PO ×2 (18:33→23:46)
[2022-08-26] MEDS: Tamsulosin HCl 0.4 MG Capsule PO (22:11)
[2022-08-26] MEDS: MELATONIN 3 MG TABLET PO (22:11)
[2022-08-26] MEDS: Citalopram 20 MG Tablet PO (22:11)
[2022-08-26] MEDS: Mag Hydrox/Al Hydrox/Simeth 30 ML UDC PO (22:13)
[2022-08-27] VITALS (8 sets, daily range): BP systolic 110–164; BP diastolic 63–91; PULSE 57–70; RESP 16–18; TEMP 36.6–36.8; O2SAT 92–98
[2022-08-27] MEDS: Docusate Sodium 100 MG Capsule PO (05:28)
[2022-08-27] MEDS: Acetaminophen 500 MG Tablet 1000 MG PO ×3 (05:28→23:30)
[2022-08-27 06:18] LABS: Absolute Lymphocyte Count 0.95 X10^3/uL (0.83-4.51); Absolute Neutrophil Count 15.6 X10^3/uL (2.0-7.7); Basophil# 0.03 X10^3/uL; Basophil% 0.2 % (0-1); Eosinophil# 0.02 X10^3/uL; Eosinophils% 0.1 % (0-5); Hematocrit 38.2 % (40-54); Hemoglobin 12.9 g/dL (13.0-16.5); Lymphocyte # 0.95 X10^3/ul (0.83-4.51); Lymphocyte % 5.3 % (19-41); Mean Corp Hgb Conc 33.8 g/dL (32-36); Mean Corpuscular Hgb 30.6 pg (27.0-32.0); Mean Corpuscular Volume 90.5 fL (80-94); Mean Platelet Vol. 10.2 fl (6.2-12.0); Monocyte# 1.09 X10^3/uL; Monocyte% 6.1 % (0-10); NRBC Flagged by Analyzer 0 % (0-5); Neutrophil # 15.59 X10^3/uL (2.7-7.7); Neutrophil % 87.5 % (47-70); Platelet Count 155 K/mm3 (150-450); RBC Distribution Width SD 50.2 fl (35.1-43.9); Red Blood Count 4.22 M/mm3 (4.6-6.2); White Blood Count 17.8 K/mm3 (4.4-11.0)
[2022-08-27] MEDS: Mag Hydrox/Al Hydrox/Simeth 30 ML UDC PO (06:30)
[2022-08-27 06:36] LABS: Anion Gap 7 (5-15); BUN 20 mg/dL (7-18); BUN/Creat Ratio 24.3 RATIO (10-20); Calcium,Total 9.1 mg/dL (8.5-10.1); Chloride 109 mmol/L (98-107); Creatinine, Serum 0.82 mg/dL (0.70-1.30); EST Glomerular Filtration Rate 97 mL/min (>60); Est Glom Filt Rate - Afr Amer 117 mL/min (>60); Estimated Creatinine Clearance 76.64 ml/min; Glucose 120 mg/dL (74-106); Potassium 3.5 mmol/L (3.5-5.1); Sodium Level 138 mmol/L (136-145)
--- NOTE | 2022-08-27 08:11 | PCM.PN.HOSP ---
Reason for Visit Reason for Visit: Diagnoses Acute pancreatitis without necrosis or infection, unspecified (08/25/22) Urinary tract infection, site not specified (08/25/22) Subjective Subjective Same much more awake and interactive compared to previous days. Cultures so far positive for nonsignificant growth of Streptococcus agalactiae as well as a gram-negative irineo. Patient complains of being constipated. Plan is to treat symptomatically. His diet is also being advanced as tolerated Objective Data Objective Data Vital Signs: Vital Signs Temp Pulse Resp BP Pulse Ox O2 Del Method 97.8 F 64 18 161/85 H 94 Room Air 08/27/22 05:19 08/27/22 05:19 08/27/22 05:19 08/27/22 05:19 08/27/22 07:49 08/27/22 07:49 Oxygen Delivery Method Room Air Weight: 117.163 kg Body Mass Index (BMI) 38.1 Intake & Output: Intake and Output for Last 24 Hours 08/25/22 08/26/22 08/27/22 23:59 23:59 23:59 Intake Total 2120 / 2220 3255 / 3255 320 / 320 Output Total 650 / 1050 2200 / 2200 450 / 450 Balance 1470 / 1170 1055 / 1055 -130 / -130 Lab / Micro Data Result Diagrams: 08/27/22 05:59 08/27/22 05:59 Labs: Laboratory Results - last 24 hr 08/27/22 05:59: WBC 17.8 H, RBC 4.22 L, Hgb 12.9 L, Hct 38.2 L, MCV 90.5, MCH 30.6, MCHC 33.8 D, RDW Std Deviation 50.2 H, RDW Coeff of Donna 15.0 H, Plt Count 155, MPV 10.2, Immature Gran % (Auto) 0.800, Neut % (Auto) 87.5 H, Lymph % (Auto) 5.3 L, [place] % (Auto) 6.1, Eos % (Auto) 0.1, Baso % (Auto) 0.2, Absolute Neuts (auto) 15.6 H, Absolute Lymphs (auto) 0.95, Nucleated RBC % 0 08/27/22 05:59: Sodium 138, Potassium 3.5, Chloride 109 H, Carbon Dioxide 22.0, Anion Gap 7, BUN 20 H, Creatinine 0.82, Estim Creat Clear Calc 76.64, Est GFR (MDRD) Af Amer 117, Est GFR (MDRD) Non-Af 97, BUN/Creatinine Ratio 24.3 H, Glucose 120 H, Calcium 9.1 Micro: Microbiology 08/25/22 10:10 Urine, Catheterized Urine Culture - Preliminary Gram negative irineo Streptococcus agalactiae (B) Physical Exam Narrative GENERAL: cooperative HEENT: Atraumatic; normocephalic EYES; Anicteric, Normal Conjunctiva NECK; supple, normal thyroid, RESPIRATORY: Diminished to auscultation CARDIOVASCULAR: Regular S1 S2, GI: normoactive bowel sounds, distended abdomen : No Renal angle tenderness; EXTREMITIES: No edema, no clubbing, MUSCULOSKELETAL: no muscle wasting NEURO: Awake; no lateralizing signs. SKIN: No Rash PSYCH; Flat affect Assessment & Plan Assessment/Plan (1) UTI (urinary tract infection): (2) Pancreatitis: PLAN: Plan Patient is a 77-year-old gentleman with past medical history significant for neck trauma with subsequent paraplegia brought to the emergency department with progressive generalized weakness.? Work-up consistent with UTI UTI. 1.? UTI secondary to use of PRN straight cath as a result of chronic urinary retention in view of patient underlying paraplegia ?Admitted to regular nursing floor managed with IV fluids, broad-spectrum antibiotic therapy with meropenem. Culture sent we will follow-up on result ? 08/26/2022 patient remains on meropenem culture sent results pending WBC count remains elevated -[id number] so far positive for nonsignificant growth of Streptococcus agalactiae as well as a gram-negative irineo. 2. Acute pancreatitis ? Etiology not clear admitted to regular nursing floor managed with antinausea medication pain medication PPI as well as clear liquids ? 08/26/2022; plan is advance patient's diet as tolerated 3.? Essential hypertension Blood pressure controlled on lisinopril and nifedipine did continue 4.? Paraplegia following traumatic neck fracture ?Supportive care patient apparently has chronic urinary retention for which patient undergoes periodic straight cath as needed 5.? BPH ?Patient is on Flomax did continue 6. Paroxysmal A-fib ? Rate controlled on systemic anticoagulation with apixaban 7.? Peripheral neuropathy ?Patient is on gabapentin did continue 8.? Depression Patient is on SSRI did continue 9.? DVT prophylaxis ? On apixaban 10. Constipation ? Treated symptomatically Time spent in the patient's overall evaluation,decision-making process, review of diagnostic data, adjustment of management, discussion with other providers, nursing nursing and ancillary staff involved in patient's care documentation, 35 Minutes Charges/Coding Visit Charges Inpatient E&M: 31515 Subs Hosp L2
[2022-08-27] MEDS: Polyethylene Glycol 3350 17 GM PACKET PO (09:19)
[2022-08-27] MEDS: Gabapentin 300 MG Capsule PO ×2 (09:19→23:32)
[2022-08-27] MEDS: APIXABAN 5 MG TABLET PO ×2 (09:19→23:29)
[2022-08-27] MEDS: Pantoprazole Sodium 20 MG Tablet PO (09:20)
[2022-08-27] MEDS: Lisinopril 20 MG Tablet PO (09:20)
[2022-08-27] MEDS: Carvedilol 12.5 MG Tablet PO ×2 (09:20→15:59)
[2022-08-27] MEDS: Magnesium Citrate 300 ML PO (09:27)
[2022-08-27] MEDS: Menthol/Lanolin/Calamine/Znox 113 GM Tube 1 APPLIC TOPICAL ×2 (09:28→23:28)
[2022-08-27] MEDS: Ensure Clear 120 ML Liquid PO (09:30)
--- NOTE | 2022-08-27 11:15 | CT_ITS ---
EXAM: CT ABDOMEN AND PELVIS WITH INTRAVENOUS CONTRAST CLINICAL INDICATION: Abdominal pain. Mild acute pancreatitis on recent CT abdomen. TECHNIQUE: Helically acquired images were obtained of the abdomen and pelvis with intravenous contrast. This CT exam was performed using one or more of the following dose reduction techniques: automated exposure control, adjustment of the mA and/or kV according to patient size, and/or use of iterative reconstruction technique. CONTRAST: 100 mL of IV Isovue-300. Oral Gastrografin was also given. RADIATION DOSE: CTDIvol = 21.92 mGy, DLP = 1867.97 mGy-cm COMPARISON: CT abdomen and pelvis with contrast 08/25/2022. FINDINGS: LOWER THORAX: Unremarkable. Lung bases are clear. No cardiomegaly. No significant pericardial effusion. ABDOMEN: LIVER: Unremarkable. Homogeneous. No focal mass. GALLBLADDER AND BILE DUCTS: Unremarkable. No calcified gallstones. No gallbladder distention or wall edema. No intra- or extrahepatic biliary ductal dilation. PANCREAS: Peripancreatic edema around the head of the pancreas remains consistent with mild acute pancreatitis. No pancreatic ductal dilatation. Motion artifacts. No obvious pancreatic mass. SPLEEN: Unremarkable. Normal size without focal cystic or solid mass. ADRENALS: Unremarkable. No nodules. KIDNEYS AND URETERS: 1.5 cm nonobstructing stone in the right lower renal pole is unchanged. 2.9 cm right posterior renal lower pole parenchymal cyst is unchanged. 1.5 cm right anterior renal parenchymal cyst is unchanged. 1 cm nonenhancing right posterior renal parenchymal cyst is unchanged. 8mm nonenhancing right anterior renal cortical cyst is unchanged. No right hydronephrosis. 4.4 cm nonenhancing left lower renal pole parenchymal cyst is unchanged. 3.2 cm nonenhancing hypodense cysts in the left anterior renal parenchyma with CT number of 14.95 Hounsfield units. No left hydronephrosis. 2.2 cm left posterior renal parenchymal cyst is unchanged. STOMACH AND BOWEL: Gastric dilatation containing air contrast fluid level. No focal inflammatory change. PELVIS: APPENDIX: Normal. BLADDER: Empty urinary bladder containing indwelling Mejía catheter. REPRODUCTIVE: Unremarkable as visualized. No mass. ABDOMEN and PELVIS: INTRAPERITONEAL SPACE: Unremarkable. No ascites or other fluid collection. No free air. BONES/JOINTS: Unremarkable. No suspicious lytic or blastic abnormality. SOFT TISSUES: Unremarkable. No discrete abdominal or pelvic wall hernia. VASCULATURE: Unremarkable. Abdominal aorta is non-dilated. LYMPH NODES: Unremarkable. No enlarged lymph nodes. CT/Abdomen/Pelvis WITH Contrast IMPRESSION: 1. Limited study due to motion. 2. Mild acute pancreatitis but no visible pancreatic mass considering motion degradation. Minimal fluid in the left upper flank of the abdomen. These are unchanged. 3. 1.5 cm nonobstructing stone in the right lower renal pole is unchanged. 4. Bilateral renal cysts are unchanged. 5. No other additional findings or changes. Electronically Signed: Juaquin Arce MD at 15:06 EDT ,
[2022-08-27 11:40] LABS: Lipase 72 U/L (13-75)
--- NOTE | 2022-08-27 12:45 | CASEMGMT ---
Addendum entered by Carrillo Baltazar 08/27/22 16:49: Therapy has worked w/pt. Pt requiring max assist of 2 and SNF recommended. Pt's and son both in room and observed pt working w/therapy and are aware of recommendations. and son both agreeable to pt going to a SNF and requesting [facility]. SW, Padmini, made aware and sent referral. Pt and family made aware a bed may not be available in [facility]. A list of SNF providers including quality and resource use data and consistent with the patient?s preferred geographic region, medical needs, and insurance network were provided from the [employer] Guide. aware to review the list and choose 2nd and 3rd preferences if [facility] unable to accept. RN VIRGIL spoke w/pt and he voices being agreeable to SNF as well. requesting for F/C to be kept in while @ SNF, stating the last time he was @ SNF, he would become very soiled. She states she S/C's pt about 4-5 x's/day @ home. made aware this would be up to the physician's discretion. Original Note: RN?CM?[employer]?CM?to room to meet with for initial transition planning/care coordination?assessment.?RN?CM?introduced self and role at [facility].? voices understanding and consents to?assessment?at this time.? Pt resting in bed in no distress at this time and c/o nausea. Aliya FLANNERY, made aware.? Pt w/hx of stroke and expressive aphasia. Care providers, pharmacy, and demographics verified at this time w/. PCP: Dr Tunde Beard Specialists: Dr Doshi-urology, [facility]/cardiology Palliative-Palliative referral was made during prior admission and they met w/pt and . states they declined at that time and she is not interested in talking w/anyone at this time about it, stating, We're not ready for that. Preferred Pharmacy: [facility] Insurance: MCR, Other commercial Prescription Benefit:none Living Will/HPOA: states pt has both LW and HCPOA. She states she is the POA and thinks son, Bulmaro, is 1st alternative, but she is not sure. She states Bulmaro has a copy of the paperwork and she plans to check with him. LNOK: /Nuzhat, son/Bulmaro, son/Bartolo, daughter in law Living Arrangements: Patient lives with in handicap accessible home with ramp to enter the home. assist with ADLs, does med mgnt, and all home management tasks. straight-cath's pt most of the time. S/C supplies are shipped to them from [facility]. states have all supplies needed. Transportation: DME: Patient has shower chair, cane, walker, raised toilet, hospital bed, grab bars, hand held shower, electric and standard wheelchair. HHC/SNF: Patient has had [facility] in the past. Patient has been to [facility], [facility], and a rehab in [place]. wishes for pt to be able to return home, stating, I hope he's strong enough. She wants to wait and see how pt is doing before making decision re: d/c planning. She states would be agreeable to HHC, if recommended/needed. CM?to follow for any further discharge planning/needs.? voices no further concerns/needs at this time.? Advised her to ask for?CM?if any further questions/concerns/needs arise.? Voices understanding. PLAN:??TBD. PT/OT evals pending. Follow for possible HHC. Nae BSN?RN?CM
--- NOTE | 2022-08-27 13:55 | NURSING ---
pt to ct scan
[2022-08-27] MEDS: Ondansetron 4 MG/2 ML Vial IV (15:57)
[2022-08-27] MEDS: Potassium Chloride Oral Tablet 10 MEQ PO (15:59)
[2022-08-27] MEDS: NIFEdipine 30 MG Tablet PO (16:00)
--- NOTE | 2022-08-27 16:07 | CASEMGMT ---
Discharge Planning HH list created and given to RN VIRGIL. Araseli Bright, Discharge Planning Asst.
[2022-08-27] MEDS: Fleet Enema 1 ML RC (16:34)
--- NOTE | 2022-08-27 16:42 | NURSING ---
enema given, large amt of gas passed
--- NOTE | 2022-08-27 16:43 | CASEMGMT ---
Discharge Planning SNF list created and given to RN VIRGIL. Araseli Bright, Discharge Planning Asst.
--- NOTE | 2022-08-27 16:54 | CASEMGMT ---
Social Work Per RNCM, pt and requesting SNF placement at TCU. Referral sent to [facility] in TCU. SW will await determination of bed availability and acceptance. Plan: TCU, pending acceptance KEO Rodriguez
[2022-08-27] MEDS: 0.9% Saline Lock 10 ML Syringe IV (23:28)
[2022-08-27] MEDS: Tamsulosin HCl 0.4 MG Capsule PO (23:29)
[2022-08-27] MEDS: Citalopram 20 MG Tablet PO (23:29)
[2022-08-27] MEDS: MELATONIN 3 MG TABLET PO (23:37)
[2022-08-28 04:48] VITALS: BP 128/69; PULSE 62; RESP 20; TEMP 36.7; O2SAT 93
[2022-08-28] MEDS: Acetaminophen 500 MG Tablet 1000 MG PO (04:58)
[2022-08-28 06:20] LABS: Absolute Lymphocyte Count 0.74 X10^3/uL (0.83-4.51); Absolute Neutrophil Count 12.2 X10^3/uL (2.0-7.7); Basophil# 0.03 X10^3/uL; Basophil% 0.2 % (0-1); Eosinophil# 0.11 X10^3/uL; Eosinophils% 0.8 % (0-5); Hemoglobin 12.8 g/dL (13.0-16.5); Lymphocyte # 0.74 X10^3/ul (0.83-4.51); Lymphocyte % 5.2 % (19-41); Mean Corp Hgb Conc 32.8 g/dL (32-36); Mean Corpuscular Hgb 29.8 pg (27.0-32.0); Mean Corpuscular Volume 90.9 fL (80-94); Mean Platelet Vol. 10.6 fl (6.2-12.0); Monocyte% 7.7 % (0-10); NRBC Flagged by Analyzer 0 % (0-5); Neutrophil # 12.17 X10^3/uL (2.7-7.7); Neutrophil % 85.6 % (47-70); Platelet Count 191 K/mm3 (150-450); RBC Distribution Width CV 14.8 % (11.6-14.6); RBC Distribution Width SD 49.2 fl (35.1-43.9); Red Blood Count 4.29 M/mm3 (4.6-6.2); White Blood Count 14.2 K/mm3 (4.4-11.0)
[2022-08-28 06:52] LABS: Anion Gap 9 (5-15); BUN 27 mg/dL (7-18); Calcium,Total 9.1 mg/dL (8.5-10.1); Chloride 106 mmol/L (98-107); Creatinine, Serum 0.84 mg/dL (0.70-1.30); EST Glomerular Filtration Rate 94 mL/min (>60); Est Glom Filt Rate - Afr Amer 113 mL/min (>60); Estimated Creatinine Clearance 74.81 ml/min; Glucose 122 mg/dL (74-106); Potassium 3.3 mmol/L (3.5-5.1); Sodium Level 139 mmol/L (136-145)
[2022-08-28 07:36] VITALS: O2SAT 95
--- NOTE | 2022-08-28 07:36 | PCM.PN.HOSP ---
Reason for Visit Reason for Visit: Diagnoses Acute pancreatitis without necrosis or infection, unspecified (08/25/22) Urinary tract infection, site not specified (08/25/22) Subjective Subjective Seen admitted some symptomatic relief regarding his abdominal bloating. Plan is for patient to be discharged home with home health Objective Data Objective Data Vital Signs: Vital Signs Temp Pulse Resp BP Pulse Ox O2 Del Method 98.1 F 62 20 H 128/69 H 95 Room Air 08/28/22 04:48 08/28/22 04:48 08/28/22 04:48 08/28/22 04:48 08/28/22 07:36 08/28/22 07:36 Oxygen Delivery Method Room Air Weight: 117.163 kg Body Mass Index (BMI) 38.1 Intake & Output: Intake and Output for Last 24 Hours 08/26/22 08/27/22 08/28/22 23:59 23:59 23:59 Intake Total 3255 / 3255 1140 / 1250 230 / 230 Output Total 2200 / 2200 1675 / 1825 500 / 500 Balance 1055 / 1055 -535 / -575 -270 / -270 Lab / Micro Data Result Diagrams: 08/28/22 05:23 08/28/22 05:23 Labs: Laboratory Results - last 24 hr 08/27/22 05:59: Lipase 72 08/28/22 05:23: WBC 14.2 H, RBC 4.29 L, Hgb 12.8 L, Hct 39.0 L, MCV 90.9, MCH 29.8, MCHC 32.8, RDW Std Deviation 49.2 H, RDW Coeff of Donna 14.8 H, Plt Count 191, MPV 10.6, Immature Gran % (Auto) 0.500, Neut % (Auto) 85.6 H, Lymph % (Auto) 5.2 L, [place] % (Auto) 7.7, Eos % (Auto) 0.8, Baso % (Auto) 0.2, Absolute Neuts (auto) 12.2 H, Absolute Lymphs (auto) 0.74 L, Nucleated RBC % 0 08/28/22 05:23: Sodium 139, Potassium 3.3 L, Chloride 106, Carbon Dioxide 24.0, Anion Gap 9, BUN 27 H, Creatinine 0.84, Estim Creat Clear Calc 74.81, Est GFR (MDRD) Af Amer 113, Est GFR (MDRD) Non-Af 94, BUN/Creatinine Ratio 32.0 H, Glucose 122 H, Calcium 9.1 Micro: Microbiology 08/25/22 11:05 Blood Culture (Wb) - Venous Blood Culture - Preliminary No growth in 48 hours. 08/25/22 11:10 Blood Culture (Wb) - Anticubital Right Blood Culture - Preliminary No growth in 48 hours. 08/25/22 10:10 Urine, Catheterized Urine Culture - Final Citrobacter koseri Streptococcus agalactiae (B) Radiography Diagnostic Testing: Radiology Impression Abdomen/Pelvis CT 08/27/22 11:15 IMPRESSION: 1. Limited study due to motion. 2. Mild acute pancreatitis but no visible pancreatic mass considering motion degradation. Minimal fluid in the left upper flank of the abdomen. These are unchanged. 3. 1.5 cm nonobstructing stone in the right lower renal pole is unchanged. 4. Bilateral renal cysts are unchanged. 5. No other additional findings or changes. Electronically Signed: Juaquin Arce MD at 15:06 EDT , Physical Exam Narrative GENERAL: cooperative HEENT: Atraumatic; normocephalic EYES; Anicteric, Normal Conjunctiva NECK; supple, normal thyroid, RESPIRATORY: Diminished to auscultation CARDIOVASCULAR: Regular S1 S2, GI: normoactive bowel sounds, distended abdomen : No Renal angle tenderness; EXTREMITIES: No edema, no clubbing, MUSCULOSKELETAL: no muscle wasting NEURO: Awake; no lateralizing signs. SKIN: No Rash PSYCH; Flat affect Assessment & Plan Assessment/Plan (1) UTI (urinary tract infection): (2) Pancreatitis: PLAN: Plan Patient is a 77-year-old gentleman with past medical history significant for neck trauma with subsequent paraplegia brought to the emergency department with progressive generalized weakness.? Work-up consistent with UTI UTI. 1.? UTI secondary to use of PRN straight cath as a result of chronic urinary retention in view of patient underlying paraplegia ?Admitted to regular nursing floor managed with IV fluids, broad-spectrum antibiotic therapy with meropenem. Culture sent we will follow-up on result ? 08/26/2022 patient remains on meropenem culture sent results pending WBC count remains elevated -[id number] so far positive for nonsignificant growth of Streptococcus agalactiae as well as a gram-negative irineo. 2. Acute pancreatitis ? Etiology not clear admitted to regular nursing floor managed with antinausea medication pain medication PPI as well as clear liquids ? 08/26/2022; plan is advance patient's diet as tolerated 3.? Essential hypertension Blood pressure controlled on lisinopril and nifedipine did continue 4.? Paraplegia following traumatic neck fracture ?Supportive care patient apparently has chronic urinary retention for which patient undergoes periodic straight cath as needed 5.? BPH ?Patient is on Flomax did continue 6. Paroxysmal A-fib ? Rate controlled on systemic anticoagulation with apixaban 7.? Peripheral neuropathy ?Patient is on gabapentin did continue 8.? Depression Patient is on SSRI did continue 9.? DVT prophylaxis ? On apixaban 10. Constipation ? Treated symptomatically Time spent in the patient's overall evaluation,decision-making process, review of diagnostic data, adjustment of management, discussion with other providers, nursing nursing and ancillary staff involved in patient's care documentation, 35 Minutes Charges/Coding Visit Charges Inpatient E&M: 82580 Subs Hosp L2
[2022-08-28] MEDS: Carvedilol 12.5 MG Tablet PO (08:04)
[2022-08-28] MEDS: Pantoprazole Sodium 20 MG Tablet PO (08:04)
[2022-08-28] MEDS: Lisinopril 20 MG Tablet PO (08:04)
[2022-08-28] MEDS: APIXABAN 5 MG TABLET PO (08:04)
[2022-08-28] MEDS: Gabapentin 300 MG Capsule PO (08:05)
[2022-08-28] MEDS: Menthol/Lanolin/Calamine/Znox 113 GM Tube 1 APPLIC TOPICAL (08:06)
[2022-08-28] MEDS: Ensure Clear 120 ML Liquid PO (08:08)
[2022-08-28 08:27] VITALS: BP 125/71; PULSE 63; RESP 16; TEMP 36.8; O2SAT 97
--- NOTE | 2022-08-28 09:38 | CASEMGMT ---
Social Work Per Charge nurse, pt now stating pt will not go to TCU and will take pt home. TCU referral cancelled. RNCM is aware. KEO Rodriguez
--- NOTE | 2022-08-28 09:44 | NURSING ---
pt came to desk and stated she does not want him to go to tcu. explained that pt unable to walk, how are they going to manage at home. she replied don't you worry about it. notified dr youssef family wants to take him home.
--- NOTE | 2022-08-28 10:34 | CASEMGMT ---
Addendum entered by Carrillo Baltazar 08/28/22 11:02: Mimi states they are able to accept pt for HHC and states they now have an opening for [facility] SOC. is out of room at this time. Pt made aware. Addendum entered by Carrillo Baltazar 08/28/22 10:40: Per Mimi, they do not have staffing for SOC until next Wed, at the earliest. made aware and states still wants [facility] and does not want any other HHC agency and she is okay w/SOC not being until Wed. Call back to Mimi and she was made aware. She will review referral and get back to RN CM. Original Note: RN CM NOTE: asked to speak w/RN CM. RN CM to room. Pt resting in bed. @ bedside. and pt both state they have changed their minds and no longer wish for pt to go to [facility] TCU. They would like for him to d/c home and do not want him to go to any other SNF. states b/w their 2 sons who live nearby and grandsons, she will have plenty of help to transfer and take care of pt @ home and feels he will be safe @ home. Discussed HHC and they are agreeable. A list of HHC providers including quality and resource use data and consistent with the patient?s preferred geographic region, medical needs, and insurance network were provided from the [employer] Guide. 1st preference is [facility]. Order placed for HHC: SN and PT/OT. Call to Mimi @ [facility] and referral made. She was made aware plan is for discharge today. Nae GOVEA RN CM
[2022-08-28] MEDS: Ascorbic Acid 500 MG Tablet 1000 MG PO (11:07)
[2022-08-28 11:15] VITALS: BP 122/76; PULSE 56; RESP 16; TEMP 37; O2SAT 96
--- NOTE | 2022-08-28 11:41 | PCM.DC.SUM ---
Providers Date of Admission: 08/25/22 Date of Discharge: 08/28/22 Primary Care Physician: Dr. Tunde Beard, Reason For Visit: ACUTE CYSTITIS, ACUTE PANCREATITIS Diagnosis Discharge Diagnosis (1) UTI (urinary tract infection): Status: Acute Code(s): N39.0 - Urinary tract infection, site not specified (2) Pancreatitis: Status: Acute Code(s): K85.90 - Acute pancreatitis without necrosis or infection, unspecified Plan Patient is a 77-year-old gentleman with past medical history significant for neck trauma with subsequent paraplegia brought to the emergency department with progressive generalized weakness.? Work-up consistent with UTI UTI. 1.? UTI secondary to use of PRN straight cath as a result of chronic urinary retention in view of patient underlying paraplegia ?Admitted to regular nursing floor managed with IV fluids, broad-spectrum antibiotic therapy with meropenem. Culture sent we will follow-up on result ? 08/26/2022 patient remains on meropenem culture sent results pending WBC count remains elevated -[id number] so far positive for nonsignificant growth of Streptococcus agalactiae as well as a gram-negative irineo. ? 08/28/2022; discontinued antibiotic therapy due to no significant growth 2. Acute pancreatitis ? Etiology not clear admitted to regular nursing floor managed with antinausea medication pain medication PPI as well as clear liquids ? 08/26/2022; plan is advance patient's diet as tolerated 3.? Essential hypertension Blood pressure controlled on lisinopril and nifedipine did continue 4.? Paraplegia following traumatic neck fracture ?Supportive care patient apparently has chronic urinary retention for which patient undergoes periodic straight cath as needed 5.? BPH ?Patient is on Flomax did continue 6. Paroxysmal A-fib ? Rate controlled on systemic anticoagulation with apixaban 7.? Peripheral neuropathy ?Patient is on gabapentin did continue 8.? Depression Patient is on SSRI did continue 9.? DVT prophylaxis ? On apixaban 10. Constipation ? Treated symptomatically Time spent in the patient's overall evaluation,decision-making process, review of diagnostic data, adjustment of management, discussion with other providers, nursing nursing and ancillary staff involved in patient's care documentation, 35 Minutes Medications at Discharge Home Medications lisinopril 20 mg tablet 20 mg PO DAILY blood pressure 06/24/15 ascorbic acid (vitamin C) 500 mg tablet 1,000 mg PO LUNCH supplement 08/17/21 carvedilol 12.5 mg tablet 12.5 mg PO Q12H BP 30 days #60 tabs 09/03/21 tamsulosin 0.4 mg capsule 0.4 mg PO QHS Urine retention 30 days #30 caps 09/03/21 citalopram 20 mg tablet 20 mg PO QHS depression 12/04/21 gabapentin 300 mg capsule 600 mg PO BID Nerve pain 12/04/21 nifedipine 30 mg tablet,extended release 15 mg PO DAILY BP 12/04/21 apixaban 5 mg tablet (Eliquis) 5 mg PO BID blood thinner #180 tabs 01/21/22 nitrofurantoin monohydrate/macrocrystals 100 mg capsule (Macrobid) 100 mg PO BID 05/19/22 potassium chloride 10 mEq tablet,extended release(part/cryst) 10 meq PO DAILY supplement 05/19/22 Hospital Course Summary of Care Provided Minutes Spent on Discharge: 35 Weight / BMI Weight Weight: 117.163 kg Body Mass Index (BMI) 38.1 ABG / Lab / Microbiology Data Result Diagrams: 08/28/22 05:23 08/28/22 05:23 Laboratory: Laboratory Results - last 24 hr 08/28/22 05:23: WBC 14.2 H, RBC 4.29 L, Hgb 12.8 L, Hct 39.0 L, MCV 90.9, MCH 29.8, MCHC 32.8, RDW Std Deviation 49.2 H, RDW Coeff of Donna 14.8 H, Plt Count 191, MPV 10.6, Immature Gran % (Auto) 0.500, Neut % (Auto) 85.6 H, Lymph % (Auto) 5.2 L, Hudspeth % (Auto) 7.7, Eos % (Auto) 0.8, Baso % (Auto) 0.2, Absolute Neuts (auto) 12.2 H, Absolute Lymphs (auto) 0.74 L, Nucleated RBC % 0 08/28/22 05:23: Sodium 139, Potassium 3.3 L, Chloride 106, Carbon Dioxide 24.0, Anion Gap 9, BUN 27 H, Creatinine 0.84, Estim Creat Clear Calc 74.81, Est GFR (MDRD) Af Amer 113, Est GFR (MDRD) Non-Af 94, BUN/Creatinine Ratio 32.0 H, Glucose 122 H, Calcium 9.1 Microbiology: Microbiology 08/25/22 11:05 Blood Culture (Wb) - Venous Blood Culture - Preliminary No growth in 48 hours. 08/25/22 11:10 Blood Culture (Wb) - Anticubital Right Blood Culture - Preliminary No growth in 48 hours. 08/25/22 10:10 Urine, Catheterized Urine Culture - Final Citrobacter koseri Streptococcus agalactiae (B) Radiography Diagnostic Testing: Radiology Impression Abdomen/Pelvis CT 08/27/22 11:15 IMPRESSION: 1. Limited study due to motion. 2. Mild acute pancreatitis but no visible pancreatic mass considering motion degradation. Minimal fluid in the left upper flank of the abdomen. These are unchanged. 3. 1.5 cm nonobstructing stone in the right lower renal pole is unchanged. 4. Bilateral renal cysts are unchanged. 5. No other additional findings or changes. Electronically Signed: Juaquin Arce MD at 15:06 EDT , D/C Instructions Discharge Diet: No restrictions Discharge Activity: Return to Normal Activity Call your doctor if you observe: Fever of 101 or Higher, Shortness of breath, Fainting spells and Chest pain Meaningful Use Info Meaningful Use Diagnoses (Choose all that apply): None applicable Discharge Plan Admission Admit Date/Time: 08/25/22 11:51 Attending Provider: Marc Cantu Primary Care Provider: Tunde Beard Discharge Orders/Prescriptions Prescriptions: Continued citalopram 20 mg tablet 20 mg PO QHS gabapentin 300 mg capsule 600 mg PO BID nifedipine 30 mg tablet extended release 15 mg PO DAILY potassium chloride 10 mEq tablet,ER particles/crystals 10 meq PO DAILY nitrofurantoin monohyd/m-cryst [Macrobid] 100 mg capsule 100 mg PO BID Rx Instructions: must administer with a meal/food lisinopril 20 MG tablet 20 mg PO DAILY Label Comments: BLOOD PRESSURE ascorbic acid (vitamin C) 500 mg tablet 1,000 mg PO LUNCH carvedilol 12.5 mg Tablet 12.5 mg PO Q12H 30 Days Qty: 60 0RF tamsulosin 0.4 mg Capsule 0.4 mg PO QHS 30 Days Qty: 30 0RF Eliquis 5 mg tablet 5 mg PO BID Qty: 180 4RF Referrals / Follow Up: Tunde Beard DO [Primary Care Provider] - 08/31/22 1:00 pm (Follow up with Dr. Tunde Beard on Wednesday, 1:00pm. Bring Discharge papers to visit.) Disposition Disposition (needs filled in before D/C Order can be placed): Home Health Service Charges/Coding Visit Charges Inpatient E&M: 49784 Disch Hosp >30min
[2022-08-28] MEDS: Potassium Chloride Oral Tablet 20 MEQ 40 MEQ PO (12:09)
== END 2022-08-28 15:11 | disposition home health service (06) | DRG 698 ==
LOC: ED 12:08 → MS3 12:32
PROVIDERS: Admitting Provider Internal Medicine; Emergency Provider Emergency Medicine; PCP Preventive Medicine Occupational Medicine; Visit Provider Internal Medicine
DX: T83.518A Infection and inflammatory reaction due to other urinary catheter, initial encounter (principal); K85.90 Acute pancreatitis without necrosis or infection, unspecified; N17.9 Acute kidney failure, unspecified; G82.20 Paraplegia, unspecified; N39.0 Urinary tract infection, site not specified; I48.0 Paroxysmal atrial fibrillation; G62.9 Polyneuropathy, unspecified; I10 Essential (primary) hypertension; F32.A Depression, unspecified; N40.0 Benign prostatic hyperplasia without lower urinary tract symptoms
CPT/HCPCS: 36415; 71045; 74177; 80048; 80053; 80076; 81001; 83605; 83690; 84484; 85025; 87040; 87077; 87086; 87088; 87186; 93005; 94668; 97162; 97166; 99285; J2185; J7050; Q9967; A4216; J2405

== ENCOUNTER 2022-10-05 16:00 | Outpatient (RCR) | payer MEDICARE, OTHER, SELFPAY ==
--- NOTE | 2022-04-28 11:24 | HP.SPREEV_ITS ---
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 RX HERE Smoking Status: Never smoker - Diagnosis Diagnosis: CVA - Pain Is pain an issue with your current prescribed condition?: No - Personal Preferred language: [place] Zealander History - History Date of Eval: 09/30/21 Smoking Status: Never smoker Hx Smoking: No Hx Tobacco Use: No Hx Smoking Exposure: No - Pain Is pain an issue with your current prescribed condition?: No Patient Allergies - Allergies Allergies ceftriaxone Allergy (Verified 04/26/22 14:34) Rash ciprofloxacin [From Cipro] Allergy (Verified 04/26/22 14:34) Hives sulfamethoxazole [From Bactrim] Allergy (Verified 04/26/22 14:34) PT UNSURE OF REACTION trimethoprim [From Bactrim] Allergy (Verified 04/26/22 14:34) PT UNSURE OF REACTION Previous/Current Goals - Goals 1-5 Previous Goal #1: Patient will describe common objects with at 5/6 details (use, action, group, association, location, description) and complete VNESTS to facilitate increased communication via circumlocution and decreased frustration with 90% acc on 3/4 measured sessions. Goal 1 Status: Goal Progressing: Pt completed 2 semantic features charts with mod to max cues and 4-5 details were identified Previous Goal #2: To increase auditory comprehension, Pt will answer WH and y/n questions during conversation to prove the pt's conversational skills with 80% acc during 3/4 measured sessions. Goal 2 Status: Goal Met: Pt answered questions during conversation x10 with up to min cue. Pt asked ST to clarify x2. Previous Goal #3: Pt will complete phrase and sentence completion tasks presented verbally and in a written form to facilitate communication with 80% acc during 2/3 measured sessions. Goal 3 Status: Goal Met: Pt completed word completion worksheet in a paragraph with 84% acc I. Previous Goal #4: Pt will repeat words and sentences to check his understanding of the speaker's message with 80% acc during 3/4 measured sessions. Goal 4 Status: Goal not targeted to prioritize other goals. Will target target in future sessions Previous Goal #5: Pt will read short paragraphs and answer questions about the story with 80% acc during 3/4 measured sessions. Goal 5 Status: Goal Met: Pt read a story and answered questions with 100% acc. - Goals 6-10 Previous Goal #6: Pt will utilize word finding strategies (circumlocution, pausing, melodic intonation, tapping out syllables) and ask for clarification as needed during conversation with min cues during 90% of opportunities during 3/4 session. Goal 6 Status: Goal Progressing: Pt utilized melodic intonation therapy with mod cues to stay on beat. Utilized in sentences to target fluency. Previous Goal #7: Pt will produce multi-syllabic words given min cues with 80% acc during 3/4 sessions. Goal 7 Status: Goal Progressing: Pt produced 4 & 5 syllable words with 60% acc. Pt instructed to tap out the syllables of difficult words. Cognitive Linguistic Comments - Comments Language Progress Pt has been making progress using word finding strategies such as circumlocution, tapping out syllables, pausing. Pt still requires cues to use strategies in sessions. During conversation, Pt required min to mod cues to with a white board, repetition, phonemic cues to get his message across and understand what the speaker is saying. Pt expresses frustration with his word finding and comprehension difficulties that impact his relationships with his family & friends, ability to communicate with doctors, and complete tasks of daily living. Plan - Plan Plan: Will recommend Pt for weekly outpatient speech therapy intervention address moderate expressive and receptive aphasia. Pt would benefit verbal and visual modeling, verbal/visual and tactile cuing, repeated practice, circumlocution training, and immediate feedback to improve articulation. Without skilled intervention Pt is at risk for difficulty communicating basic, medical, emergent, social wants & needs, and interacting with family/friends at home, and during social interactions. - Recommendations MBS: No Treatment Warranted: Yes Treatment Warranted: Receptive/ Expressive Language, Social Pragmatic Communication - Progress Prognosis: Excellent - Frequency Frequency: 1x/Week Duration: 4 Months - Goals that are Established Determination:: Goals will be added/modified as deemed necessary and appropriate. Therapy will be discontinued when results of re-evaluation indicate therapy is no longer needed or lack of progress has been documented. - Goal #1-5 Goal #1: Patient will describe common objects with at 5/6 details (use, action, group, association, location, description) and complete VNESTS to facilitate increased communication via circumlocution and decreased frustration with 90% acc on 3/4 measured sessions. Goal #2: Pt will repeat words and sentences to check his understanding of the speaker's message with 80% acc during 3/4 measured sessions. Goal #3: Pt will utilize word finding strategies (circumlocution, pausing, tapping out syllables) and ask for clarification as needed during conversation with min cues during 90% of opportunities during 3/4 session. Goal #4: Pt will utilize the principles of melodic intonation therapy to read a 10 sentence script with less than 5 errors during 2/3 trials and up to min cues during 3/4 sessions. Goal #5: Pt will produce multi-syllabic words given min cues with 80% acc during 3/4 sessions. - Goal #6-10 Goal #6: During a communication breakdown in a session, pt will identify at least 2 ways to decrease his communication frustration and utilize one of the strategies during 2/3 communication breakdowns with up to min cues during 3/4 sessions. Goal #7: Pt will participate in an ongoing cognitive and language assessment to determine areas of needs and create new goals.
--- NOTE | 2022-06-30 15:14 | HP.SP.REEV ---
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 RX HERE Smoking Status: Never smoker - Diagnosis Diagnosis: CVA - Pain Is pain an issue with your current prescribed condition?: No - Personal Preferred language: Yoruba History - History Date of Eval: 09/30/22 Smoking Status: Never smoker Hx Smoking: No Hx Tobacco Use: No Hx Smoking Exposure: No - Pain Is pain an issue with your current prescribed condition?: No Patient Allergies - Allergies Allergies ceftriaxone Allergy (Verified 05/19/22 15:38) Rash ciprofloxacin [From Cipro] Allergy (Verified 05/19/22 15:38) Hives sulfamethoxazole [From Bactrim] Allergy (Verified 05/19/22 15:38) PT UNSURE OF REACTION trimethoprim [From Bactrim] Allergy (Verified 05/19/22 15:38) PT UNSURE OF REACTION Previous/Current Goals - Goals 1-5 Previous Goal #1: Patient will describe common objects with at 5/6 details (use, action, group, association, location, description) and complete VNESTS to facilitate increased communication via circumlocution and decreased frustration with 90% acc on 3/4 measured sessions. Goal 1 Status: Goal Progressing: Semantic Feature Analysis Homework. Trial 1 (tricycle): 4/6 I Previous Goal #2: Pt will repeat words and sentences to check his understanding of the speaker's message with 80% acc during 3/4 measured sessions. Goal 2 Status: Goal Met: Pt repeated back the ST's message with 80% acc Previous Goal #3: Pt will utilize word finding strategies (circumlocution, pausing, tapping out syllables) and ask for clarification as needed during conversation with min cues during 90% of opportunities during 3/4 session. Goal 3 Status: Goal Progressing: Pt paused with mod cues x10 I during movements of word finding issues Previous Goal #4: Pt will utilize the principles of melodic intonation therapy to read a 10 sentence script with less than 5 errors during 2/3 trials and up to min cues during 3/4 sessions. Goal 4 Status: Goal Progressing: Pt read a 4 line song with min to mod cues to tap on the beat. No errors were noted on the last trial. Previous Goal #5: Pt will produce multi-syllabic words given min cues with 80% acc during 3/4 sessions. Goal 5 Status: Goal Met: Pt produced multi-syllabic words (4 syllables) with 90% acc - Goals 6-10 Previous Goal #6: During a communication breakdown in a session, pt will identify at least 2 ways to decrease his communication frustration and utilize one of the strategies during 2/3 communication breakdowns with up to min cues during 3/4 sessions. Goal 6 Status: Goal Progressing: Pt identified 1 ways ways to decrease communication frustration x1. Previous Goal #7: Pt will participate in an ongoing cognitive and language assessment to determine areas of needs and create new goals. Cognitive Linguistic Comments - Comments Language Progress Pt has been making progress using word finding strategies such as circumlocution, tapping out syllables, pausing. Pt still requires cues to use strategies in sessions. During conversation, Pt required min to mod cues to with a white board, repetition, phonemic cues to get his message across and understand what the speaker is saying. Pt expresses frustration with his word finding and comprehension difficulties that impact his relationships with his family & friends, ability to communicate with doctors, and complete tasks of daily living. Plan - Plan Plan: Will recommend Pt for weekly outpatient speech therapy intervention address mild to moderate expressive and receptive aphasia. Pt would benefit verbal and visual modeling, verbal/visual and tactile cuing, repeated practice, circumlocution training, and immediate feedback to improve articulation. Without skilled intervention Pt is at risk for difficulty communicating basic, medical, emergent, social wants & needs, and interacting with family/friends at home, and during social interactions. - Recommendations MBS: No Treatment Warranted: Yes Treatment Warranted: Receptive/ Expressive Language - Progress Prognosis: Good - Frequency Frequency: 1x/Week Duration: 2-4 Months - Goals that are Established Determination:: Goals will be added/modified as deemed necessary and appropriate. Therapy will be discontinued when results of re-evaluation indicate therapy is no longer needed or lack of progress has been documented. - Goal #1-5 Goal #1: Patient will describe common objects with at 5/6 details (use, action, group, association, location, description) and complete VNESTS to facilitate increased communication via circumlocution and decreased frustration with 90% acc on 3/4 measured sessions. Goal #2: Pt will utilize word finding strategies (circumlocution, pausing, tapping out syllables) and ask for clarification as needed during conversation with min cues during 90% of opportunities during 3/4 session. Goal #3: Pt will utilize the principles of melodic intonation therapy to read a 10 sentence script with less than 5 errors during 2/3 trials and up to min cues during 3/4 sessions. Goal #4: During a communication breakdown in a session, pt will identify at least 2 ways to decrease his communication frustration and utilize one of the strategies during 2/3 communication breakdowns with up to min cues during 3/4 sessions.
--- NOTE | 2022-09-29 14:59 | HP.PTREVAL_ITS ---
Re-Evaluation Intro: Dr. Tunde Beard, DO, It has been my pleasure to treat DANNY AQUINO over the last 51 visits for CVA. Please see the progress note below for an update on the physical therapy plan of care! Subjective Subjective: Pt. arrives today with spouse. He continues to have difficulty with word finding. Pt. reports being very fatigued today. Pt. had recently been admitted to hospital with a few night stay secondary to having a UTI. He reports he is now having much more issues with fatigue and increased difficulty with walking. No pain noted. Objective Objective/Function: Transfers: Pt. is able to complete sit to stand, but has more difficulty with initially getting up, requires increased time to complete and Gisele. needs FWW with all standing. Increased difficulty with wt. shifting and decreased LE strength to push up into erect posture. Pt. does have increased BLE edema, pitting 2+. pt. and spouse report this is baseline. I did urge them to talk to physician about this. GAIT: pt. ambulated [id number] and [id number]. Pt. required FWW to complete. He has decreased step length bilaterally and flexed posture onto AD. Pt. has heavy use of FWW with gait. Pt. reports fatigue as limiting factor with gait. He continues to present with increased difficulty with L foot clearance with advancing LLE. He was able to advance, but does drag a bit. He appears more challenged then he was prior to his hospital stay. Plan Plan Plan: I would recommend continuing PT after having increased debility after his recent hospital stay. Cont. to work on B ankle DF, hip flexion strength. transfers to FWW and stand pivot transfers. Progress gait with FWW to hopefully community I. Goals Goals Goal 1:: LTG: Pt. to have improved L foot clearance with gait with FWW. Goal Time Frame: 4-6 Weeks Goal Progress: Progressing Goal 2:: LTG: Pt. to have increased L hip flexion to allowing for better L foot clearance. Goal Time Frame: 4-6 Weeks Goal Progress: Progressing Goal 3:: LTG: Pt. to ambulate with good pattern for 500'+ with FWW. Goal Time Frame: 4-6 Weeks Goal Progress: Progressing Goal 4:: LTG: pt. to complete all transfers SOTERO with FWW> Goal Time Frame: 4-6 Weeks Goal Progress: Progressing Anticipated Interventions Anticipated Interventions Patient/Client Instruction: Educate patient on: Condition, Plan of Care, Risk Factors and Benefits of Fitness Program For the Purpose of:: To improve health and function, To foster healthy habits, To improve decision making, To facilitate caregiver knowledge, To improve self management, To prevent re-injury and To improve ability to perform tasks related to life management Therapeutic Exercise to Include: Strength training, Power training, Endurance training, Balance training, Coordination and Gait and locomotor training For the Purpose of:: To improve nutrient delivery to tissue, To increase o xygenation perfusion, To improve muscle performance and motor function, To improve ability to perform ADL's, To increase tolerance to activity/condition/position, To improve performance and independence with ADL's, To decrease level of supervision to perform tasks, To improve ability of physical actions for home/community/work/leisure and To improve gait and locomotor functions Re-Evaluation Ending Re-evaluation ending: Please do not hesitate to contact me at [phone] by phone or if you have questions or concerns regarding this new plan of care! Sincerely, Srinivasan Gonsales DPT
--- NOTE | 2022-10-05 10:00 | HP.SPREEV_ITS ---
History History Date of Eval: 09/30/22 Attending Doctor: Referring Doctor: Reason for Referral: STROKE, INCOMPLETE QUADRIPALEGIC. RX HERE Smoking Status: Never smoker Hx Smoking: No Hx Tobacco Use: No Hx Smoking Exposure: No Pain Is pain an issue with your current prescribed condition?: No Personal Preferred language: Syriac Patient Allergies Allergies Allergies: Allergies ceftriaxone Allergy (Verified 08/25/22 09:14) Rash ciprofloxacin [From Cipro] Allergy (Verified 08/25/22 09:14) Hives sulfamethoxazole [From Bactrim] Allergy (Verified 08/25/22 09:14) PT UNSURE OF REACTION trimethoprim [From Bactrim] Allergy (Verified 08/25/22 09:14) PT UNSURE OF REACTION Previous/Current Goals Goals 1-5 Previous Goal #1: Patient will describe common objects with at 5/6 details (use, action, group, association, location, description) and complete VNESTS to facilitate increased communication via circumlocution and decreased frustration with 90% acc on 3/4 measured sessions. Goal 1 Status: Goal Progressing: Pt described 10/[address] to guess. ST able to guess all. Pt described 2-[address] asked follow up questions Previous Goal #2: Pt will utilize word finding strategies (circumlocution, pausing, tapping out syllables) and ask for clarification as needed during conversation with min cues during 90% of opportunities during 3/4 session. Goal 2 Status: Goal Progressing: Pt I used pausing x5. Pt used circumlocution x1 with max cues. Pt used tap it out incorrectly. Able to use when cued. Pt completed a synonym, opposite worksheet with the following accuracy: Opposite; 40% Synonym; 30% Previous Goal #3: Pt will utilize the principles of melodic intonation therapy to read a 10 sentence script with less than 5 errors during 2/3 trials and up to min cues during 3/4 sessions. Goal 3 Status: Goal Progressing: Pt tapped out conversation with mod verbal & yuhaaviatam cues from St during a 30 minute conversation Previous Goal #4: During a communication breakdown in a session, pt will identify at least 2 ways to decrease his communication frustration and utilize one of the strategies during 2/3 communication breakdowns with up to min cues during 3/4 sessions. Goal 4 Status: Goal Progressing: Pt worked through anomia in conversation with min to mod cuing. Pt still often starts over instead of working through the error, but was getting less frustrated. Reviewed word finding strategies and modeled multiple ways to do it. Previous Goal #5: Pt will produce multi-syllabic words given min cues with 80% acc during 3/4 sessions. Goal 5 Status: Goal Progressing: Pt pronounced and tapped out 4-6 syllable words with min cues for pronunciation. Pt required mod cues to remember to tap out words Pt spoke 6 syllable multi-syllabic words with 60% acc Goals 6-10 Previous Goal #6: Pt will participate in an ongoing cognitive and language assessment to determine areas of needs and create new goals. Goal 6 Status: Goal ongoing * Pediatric & Adult patients Adult Cognitive Linguistic Comments Comments Language Progress: -: Pt has been making progress using word finding strategies such as circumlocution, tapping out syllables, pausing. Pt still requires cues to use strategies in sessions. During conversation, Pt required min to mod cues to with a white board, repetition, phonemic cues to get his message across and understand what the speaker is saying. Pt expresses frustration with his word finding and comprehension difficulties that impact his relationships with his family & friends, ability to communicate with doctors, and complete tasks of daily living. Reference: Neuro-QoL instrument Radiation Oncology Patient Plan Plan Plan: Will recommend Pt for continued weekly outpatient speech therapy intervention address mild to moderate expressive and receptive aphasia. Pt would benefit verbal and visual modeling, verbal/visual and tactile cuing, repeated practice, circumlocution training, partner communication training, counseling, and immediate feedback to improve articulation. Without skilled intervention Pt is at risk for difficulty communicating basic, medical, emergent, social wants & needs, and interacting with family/friends at home, and during social interactions. Recommendations MBS: No Treatment Warranted: Yes Treatment Warranted: Receptive/ Expressive Language Progress Prognosis: Good Frequency Frequency: 1x/Week Duration: 2-4 Months Goals that are Established Determination:: Goals will be added/modified as deemed necessary and appropriate. Therapy will be discontinued when results of re-evaluation indicate therapy is no longer needed or lack of progress has been documented. Goal #1-5 Goal #1: Patient will describe common objects with at 5/6 details (use, action, group, association, location, description) and complete VNESTS to facilitate increased communication via circumlocution and decreased frustration with 90% acc on 3/4 measured sessions. Goal #2: Pt will utilize word finding strategies (circumlocution, pausing, tapping out syllables) and ask for clarification as needed during conversation with min cues during 90% of opportunities during 3/4 session. Goal #3: When provided with resources and training, pt will seek out support resources and utilize strategies at home to improve quality of life given min cues as measured by an average score of 3 on self & caregiver rating forms (scale of 0-4, 0 = not doing, 1 = max cues, 2 = mod cues, 3 = min cues, 4 = I) during 3 sessions. Goal #4: During a communication breakdown in a session, pt will identify at least 2 ways to decrease his communication frustration and utilize one of the strategies during 2/3 communication breakdowns with up to min cues during 3/4 sessions. Goal #5: Pt will produce 4-6 multi-syllabic words given up to min cues with 80% acc during 3/4 sessions. Goal #6-10 Goal #6: Pt will complete word finding drills re: opposite, synonyms, divergent & convergent naming, analogies, etc. to improve his circumlocution and word finding with 80% acc I during 3 sessions. Goal #7: Pt will participate in an ongoing cognitive and language assessment to determine areas of needs and create new goals.
== END 2022-10-05 19:00 | disposition home or self-care (01) ==
LOC: SP 16:00
PROVIDERS: PCP Preventive Medicine Occupational Medicine; Referring Provider Family Medicine Geriatric Medicine; Visit Provider Preventive Medicine Occupational Medicine
DX: I69.320 Aphasia following cerebral infarction (principal)
CPT/HCPCS: 92507; 97110; 97164

== ENCOUNTER 2022-10-15 15:16 | Emergency (ER) | payer MEDICARE, OTHER, SELFPAY ==
[2022-10-15 15:18] VITALS: BP 124/71; PULSE 60; RESP 14; TEMP 36.7; O2SAT 96; BMI 35.9
--- NOTE | 2022-10-15 15:29 | CT_ITS ---
STUDY: CT BRAIN WITHOUT CONTRAST REASON FOR EXAM: Male, 77 years old. trauma RADIATION DOSAGE (If Supplied By Facility): CTDIvol = ( 44.99 ) mGy, DLP = ( 863.60 ) mGycm TECHNIQUE: Transaxial CT imaging of the brain was performed without administration of intravenous contrast material. Individualized dose optimization techniques were used for this CT. COMPARISON: No relevant priors. FINDINGS: Normal soft tissue structures. Normal calvarium. Prominence of the ventricles and extra-axial spaces with atrophy. There is a left parieto-occipital encephalomalacia since the previous study. Bilateral white matter microangiopathic ischemic changes of the cerebral hemispheres. Old lacunar infarct in the left basal ganglia. Normal and thalami. Normal brainstem. Normal cerebellum. There is no intracranial hemorrhage. There are no findings of an acute ischemic infarction. Normal visualized paranasal sinuses. CT/Brain/Head without Contrast IMPRESSION: Age-related and chronic changes of the brain. Electronically Signed: Akash Oro DO at 16:24 EDT ,
--- NOTE | 2022-10-15 15:29 | CT_ITS ---
STUDY: CT CERVICAL SPINE WITHOUT CONTRAST REASON FOR EXAM: Male, 77 years old. Trauma RADIATION DOSAGE (If Supplied By Facility): CTDIvol = ( 27.44 ) mGy, DLP = ( 625.31 ) mGycm TECHNIQUE: High resolution transaxial imaging was performed without contrast material. Sagittal and coronal images were reconstructed. Individualized dose optimization techniques were used for this CT. COMPARISON: March 04, 2016 FINDINGS: Normal craniovertebral junction. Normal anterior atlantoaxial articulation. Normal odontoid process. Normal cervical lordosis. Status post laminectomy at C3-C6 with posterior surgical fusion at C4-T1.. C2-3: Mild spurring of the endplates. Normal disc height and morphology. Normal central canal. Uncovertebral spurring slightly narrowing the left intervertebral neural foramen. C3-4: Mild spurring of the endplates. Narrowed disc height. Normal central canal. Uncovertebral spurring slightly narrowing the intervertebral neuroforamina. C4-5: Normal endplates. Normal disc height and morphology. Normal central canal. Uncovertebral spurring narrowing the left intervertebral neural foramen. C5-6: Normal endplates. Normal disc height and morphology. Normal central canal. Uncovertebral spurring narrowing the intervertebral neuroforamina. C6-7: Normal endplates. Normal disc height and morphology. Normal central canal. Uncovertebral spurring slightly narrowing the intervertebral neuroforamina. C7-T1: Normal endplates. Normal disc height and morphology. Normal central canal. Uncovertebral spurring slightly narrowing the left intervertebral neural foramen. Normal visualized soft tissue structures. CT/Spine Cervical without Contras IMPRESSION: Degenerative and postsurgical changes as noted of the cervical spine. No significant interval changes. No acute bony injury. Electronically Signed: Akash Oro DO at 16:36 EDT Reading Location ID and State: [facility] / [place] Tel [phone], Service support ,
--- NOTE | 2022-10-15 15:32 | EX.ED.GENINJ ---
HPI History of Present Illness Chief Complaint: Head Injury Informant: patient Onset/Context/Timing Onset: Today Narrative Narrative: Patient presents after fall. 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 Patient reportedly tipped his wheelchair over and fell striking his face. He denies loss of consciousness. He states he feels like his forehead is abraded but otherwise feels okay. He is on Eliquis secondary to history of DVTs. When asked about tetanus update he states he does not do tetanus shots. 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 Neurogenic bladder Neurogenic bowel Neuropathy 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.9) Paraplegia Premature ventricular contractions Prostatic hypertrophy Sick sinus syndrome Sick sinus syndrome Spinal cord injury Subluxation of C6-C7 cervical vertebrae TIA (transient ischemic attack) Home Medications lisinopril 20 mg tablet 20 mg PO DAILY blood pressure 06/24/15 [History Last Taken 03/28/19] ascorbic acid (vitamin C) 500 mg tablet 1,000 mg PO LUNCH supplement 08/17/21 [History Last Taken Unknown] carvedilol 12.5 mg tablet 12.5 mg PO Q12H BP 30 days #60 tabs 09/03/21 [Rx Last Taken Unknown] tamsulosin 0.4 mg capsule 0.4 mg PO QHS Urine retention 30 days #30 caps 09/03/21 [Rx Last Taken Unknown] citalopram 20 mg tablet 20 mg PO QHS depression 12/04/21 [History Last Taken Unknown] gabapentin 300 mg capsule 600 mg PO BID Nerve pain 12/04/21 [History Last Taken Unknown] nifedipine 30 mg tablet,extended release 15 mg PO DAILY BP 12/04/21 [History Last Taken Unknown] apixaban 5 mg tablet (Eliquis) 5 mg PO BID blood thinner #180 tabs 01/21/22 [Rx Last Taken Unknown] nitrofurantoin monohydrate/macrocrystals 100 mg capsule (Macrobid) 100 mg PO BID 05/19/22 [History Last Taken Unknown] potassium chloride 10 mEq tablet,extended release(part/cryst) 10 meq PO DAILY supplement 05/19/22 [History Last Taken Unknown] Allergy/AdvReac Type Severity Reaction Status Date / Time ceftriaxone Allergy Rash Verified 10/15/22 15:23 ciprofloxacin [From Cipro] Allergy Hives Verified 10/15/22 15:23 sulfamethoxazole Allergy PT UNSURE Verified 10/15/22 15:23 [From Bactrim] OF REACTION trimethoprim [From Bactrim] Allergy PT UNSURE Verified 10/15/22 15:23 OF REACTION Family History Mother Breast cancer Cancer Brain cancer Sister Diabetes Hypertension CHF (congestive heart failure) Kidney disease Sister CHF (congestive heart failure) Cardiac defibrillator in situ Other Family history of hypertension Surgical History History of neck surgery History of permanent cardiac pacemaker placement S/P cervical spinal fusion Social History household members: spouse Smoking Status: Never smoker alcohol intake: current alcohol intake frequency: holidays/special occasions only Alcohol type: wine substance use type: does not use caffeine: Yes Type: coffee Number of servings: 1 what type of physical activity do you participate in: other details: Health point frequency: 1-2 times per week duration: 45-60 minutes/day seatbelt use: always do you feel safe at home: Yes ROS ROS ED Constitutional Constitutional ED: Denies chills or fever(s) Eyes Eyes: Denies change in vision ENT ENT ED: Denies rhinorrhea or sore throat Cardiovascular Cardiovascular: Denies chest pain or palpitations Respiratory/Chest Respiratory/Chest: Denies cough or dyspnea Gastrointestinal Gastrointestinal: Denies nausea or vomiting Musculoskeletal Musculoskeletal: Denies extremity pain or neck pain Integumentary Reports other Details: Nasal abrasion. Forehead laceration Neurologic Neurologic: Denies headache(s) Psychiatric Psychiatric: Denies anxiety or depression Endocrine Endocrinology: Denies polydipsia or polyuria Allergic/Immunologic Allergic/Immunologic ED: Denies lip swelling or urticaria EXAM Physical Exam Const Vital Signs: 10/15/22 15:18 10/15/22 16:47 Temperature 98.0 F Temperature Source Temporal Pulse Rate 60 88 Respiratory Rate 14 20 H Blood Pressure 124/71 H 123/70 H Blood Pressure Mean 88 87 Pulse Ox 96 96 Oxygen Delivery Method Room Air Room Air Positive obese Nutritional Appearance: obese HEENT HEENT Narrative: Skin abrasion across the nasal bridge. Road rash lesion measuring approximate 6 cm in diameter across the forehead. No full-thickness lacerations that are repairable or really appreciated. Eyes PERRL and EOMs intact bilaterally Chest Wall inspection of chest normal and palpation of chest normal Resp normal respiratory effort and clear to auscultation bilaterally Cardio regular rhythm Rate: regular rate GI non-tender Palpation: soft Extremity Extremity Narrative: Incomplete quadriplegia. Patient able to move his left upper extremity without difficulty. Neuro oriented x3 Psych mental status grossly normal MDM MDM MDM Narrative Medical decision making narrative: Discomfort CT scan of the head and C-spine. This is done to rule out bleed, fracture. Radiography Diagnostic Testing: Clinical Impression(s) from Imaging Studies Brain CT 10/15/22 15:29 IMPRESSION: Age-related and chronic changes of the brain. Electronically Signed: Akash Oro DO at 16:24 EDT , Cervical Spine CT 10/15/22 15:29 IMPRESSION: Degenerative and postsurgical changes as noted of the cervical spine. No significant interval changes. No acute bony injury. Electronically Signed: Akash Oro DO at 16:36 EDT , Treatment and Re-Evaluation Narrative: CT scan of the head reveals age-related changes. CT of the C-spine shows degenerative and postsurgical changes. No significant interval change. Facial lacerations are cleansed. The road rash lesions across the forehead will have Surgifoam placed in a dressing. The skin avulsion/abrasions across the nasal bridge are cleansed and sealed with Dermabond. Wound care discussed. Discharge Plan Triage Chief Complaint: Head Injury ED Provider: Lora Hicks Dx/Rx/DC Orders Clinical Impression: Abrasion of face, Fall Instructions: ED Abrasion, ED Head Injury (Adult) Prescriptions: No Action citalopram 20 mg tablet 20 mg PO QHS gabapentin 300 mg capsule 600 mg PO BID nifedipine 30 mg tablet extended release 15 mg PO DAILY potassium chloride 10 mEq tablet,ER particles/crystals 10 meq PO DAILY nitrofurantoin monohyd/m-cryst [Macrobid] 100 mg capsule 100 mg PO BID Rx Instructions: must administer with a meal/food lisinopril 20 MG tablet 20 mg PO DAILY Patient Comments: BLOOD PRESSURE ascorbic acid (vitamin C) 500 mg tablet 1,000 mg PO LUNCH carvedilol 12.5 mg Tablet 12.5 mg PO Q12H 30 Days Qty: 60 0RF tamsulosin 0.4 mg Capsule 0.4 mg PO QHS 30 Days Qty: 30 0RF Eliquis 5 mg tablet 5 mg PO BID Qty: 180 4RF Primary Care Provider: Tunde Beard Referrals: Tunde Beard DO [Primary Care Provider] - 1 Week Disposition Disposition: Home, Self Care
[2022-10-15] MEDS: Lidocaine 1% (20 ml mdv) 20 ML Vial INFILT (15:41)
[2022-10-15 16:47] VITALS: BP 123/70; PULSE 88; RESP 20; O2SAT 96
--- NOTE | 2022-10-15 17:49 | ED.RN ---
Patient and family verbalized understanding. Head wrapped with surgifoam and manan bandage. Patient wheeled from dept. and assisted into car.
[2022-10-15 17:50] VITALS: BP 128/66; PULSE 78; RESP 16
== END 2022-10-15 17:51 | disposition home or self-care (01) ==
PROVIDERS: Emergency Provider Emergency Medicine; PCP Preventive Medicine Occupational Medicine; Visit Provider Emergency Medicine
DX: S00.81XA Abrasion of other part of head, initial encounter (principal); W05.0XXA Fall from non-moving wheelchair, initial encounter; Z86.718 Personal history of other venous thrombosis and embolism; Z79.01 Long term (current) use of anticoagulants; I10 Essential (primary) hypertension; Z79.899 Other long term (current) drug therapy; N40.0 Benign prostatic hyperplasia without lower urinary tract symptoms; F32.A Depression, unspecified; Z95.0 Presence of cardiac pacemaker
CPT/HCPCS: 12011; 70450; 72125; 99282

== ENCOUNTER → 2022-11-04 | Outpatient (CLI) | payer MEDICARE, OTHER, SELFPAY ==
[2022-11-04 15:59] LABS: Absolute Lymphocyte Count 1.35 X10^3/uL (0.83-4.51); Absolute Neutrophil Count 5.2 X10^3/uL (2.0-7.7); Basophil# 0.03 X10^3/uL; Basophil% 0.4 % (0-1); Eosinophil# 0.09 X10^3/uL; Eosinophils% 1.3 % (0-5); Hematocrit 36.6 % (40-54); Hemoglobin 11.6 g/dL (13.0-16.5); Lymphocyte # 1.35 X10^3/ul (0.83-4.51); Lymphocyte % 18.8 % (19-41); Mean Corp Hgb Conc 31.7 g/dL (32-36); Mean Corpuscular Hgb 29.7 pg (27.0-32.0); Mean Corpuscular Volume 93.8 fL (80-94); Mean Platelet Vol. 9.8 fl (6.2-12.0); Monocyte# 0.51 X10^3/uL; Monocyte% 7.1 % (0-10); NRBC Flagged by Analyzer 0 % (0-5); Neutrophil # 5.18 X10^3/uL (2.7-7.7); Neutrophil % 71.8 % (47-70); Platelet Count 176 K/mm3 (150-450); RBC Distribution Width CV 15.9 % (11.6-14.6); RBC Distribution Width SD 54.3 fl (35.1-43.9); White Blood Count 7.2 K/mm3 (4.4-11.0)
[2022-11-04 16:15] LABS: Anion Gap 4 (5-15); BUN 22 mg/dL (7-18); BUN/Creat Ratio 19.8 RATIO (10-20); Chloride 110 mmol/L (98-107); Creatinine, Serum 1.11 mg/dL (0.70-1.30); EST Glomerular Filtration Rate 68 mL/min (>60); Est Glom Filt Rate - Afr Amer 83 mL/min (>60); Glucose 87 mg/dL (74-106); Potassium 3.8 mmol/L (3.5-5.1); Sodium Level 143 mmol/L (136-145)
[2022-11-04 16:16] LABS: BNP,B-Type NATRIURETIC PEPTIDE 316.3 pg/mL (0-100)
== END | disposition home or self-care (01) ==
LOC: LAB 15:40
PROVIDERS: PCP Preventive Medicine Occupational Medicine; Referring Provider Nurse Practitioner Gerontology; Visit Provider Nurse Practitioner Gerontology
DX: R60.0 Localized edema (principal); R53.83 Other fatigue; R06.02 Shortness of breath
CPT/HCPCS: 36415; 80048; 83880; 85025

== ENCOUNTER → 2023-01-29 | Outpatient (CLI) | payer MEDICARE, OTHER, SELFPAY ==
[2023-01-29 14:10] LABS: Anion Gap 5 (5-15); BUN 16 mg/dL (7-18); BUN/Creat Ratio 13.3 RATIO (10-20); Calcium,Total 8.7 mg/dL (8.5-10.1); Chloride 110 mmol/L (98-107); EST Glomerular Filtration Rate 63 mL/min (>60); Est Glom Filt Rate - Afr Amer 76 mL/min (>60); Glucose 114 mg/dL (74-106); PSA,Total- Diagnostic 3.43 ng/mL (0.0-4.0); Potassium 3.7 mmol/L (3.5-5.1); Sodium Level 141 mmol/L (136-145)
[2023-01-29 14:15] LABS: Microalbumin,Random Urine 79.6 mg/L (NO RANGE EST.); Microalbumin:Creatinine Ratio 69.2 mg/g CRE (<30 mg/g CRE)
== END | disposition home or self-care (01) ==
LOC: LAB 12:51
PROVIDERS: Nurse Practitioner Gerontology; PCP Preventive Medicine Occupational Medicine; Referring Provider Preventive Medicine Occupational Medicine; Visit Provider Preventive Medicine Occupational Medicine
DX: R97.20 Elevated prostate specific antigen [PSA] (principal); I10 Essential (primary) hypertension; R60.0 Localized edema
CPT/HCPCS: 36415; 80048; 82043; 82570; 84153

== ENCOUNTER 2023-05-25 13:30 | Outpatient (RCR) | payer MEDICARE, OTHER, SELFPAY ==
--- NOTE | 2022-10-27 08:39 | HP.PTREVAL ---
Re-Evaluation Intro: Dr. Tunde Beard, DO, It has been my pleasure to treat DANNY AQUINO over the last 57 visits for debility. Please see the progress note below for an update on the physical therapy plan of care! Subjective Subjective: Pt. was recently in the hospital ~2 weeks ago for another UTI. Pt. reports having increased fatigue since. He is here today for his re assessment with PT. Pt. reports increased difficulty with walking and decreased energy levels since. He arrives in his WC has he had been previously. Reports attempting to walk at home with FWW last night. Objective Objective/Function: Sit to stand transfers: Mónica to complete final portion of erect standing, needs increased VCing for controlled eccentric lowering to chair. Tends to fall back into chair. Stand pivot transfers: Mónica to complete, once on walker he does okay, but has increased difficulty with advancing LLE due to lack of foot clearance. gait: Pt. was able to ambulate with FWW reduced L foot clearance, but is able to advance most of the time. Pt. reports increased pain in B UT most likely due to heavy using UEs. Pt. was able to ambulate 1x78' and 1x54' with CGA. Decreased step length noted. MMT: Pt. continues to be weak in BLEs, 3/5 hip flexion bilaterally, 5/5 B knee flexion, 4+/5 B knee extension, 4-/5 B ankle DF. DF is good in mid range, not as strong in increased DF positioning. Plan Plan Plan: I would like to see patient to work on BLE strengthening, gait progression, transfer progression. He has had a decrease in functional ability since his last recheck and after going to hospital Balance/Gait/Functional tests Balance/Special Test Scores TUG Test Time Seconds: 97 Tug Test: >30sec.=impaired mobility Goals Goals Goal 1:: LTG: Pt. to be I with HEP. Goal Time Frame: 4-6 Weeks Goal Progress: Progressing Goal 2:: LTG: Pt. to complete sit to stand transfers SOTERO with FWW. Goal Time Frame: 4-6 Weeks Goal Progress: Progressing Goal 3:: LTG: Pt. to complete SPT with FWW SOTERO. Goal Time Frame: 4-6 Weeks Goal 4:: LTG: pt. to be able to ambulate 350' with FWW SOTERO with good foot clearance of LLE. Goal Time Frame: 4-6 Weeks Goal 5:: LTG: Pt. to have increased L ankle DF strength to 4+/5 allwoing for better foot clearance. Goal Time Frame: 4-6 Weeks Anticipated Interventions Anticipated Interventions Patient/Client Instruction: Educate patient on: Condition, Plan of Care, Risk Factors and Benefits of Fitness Program For the Purpose of:: To improve decision making, To facilitate caregiver knowledge, To improve self management, To prevent re-injury and To improve ability to perform tasks related to life management Therapeutic Exercise to Include: Strength training, Power training, Endurance training, Balance training, Gait and locomotor training, Passive ROM and Active ROM For the Purpose of:: To decrease pain, To increase ROM, To improve nutrient delivery to tissue, To increase oxygenation perfusion, To improve muscle performance and motor function, To improve ability to perform ADL's, To improve ability of physical actions for home/community/work/leisure, To improve gait and locomotor functions, To improve health of tissue, To decrease soft tissue restriction and To increase flexibility/ROM Re-Evaluation Ending Re-evaluation ending: Please do not hesitate to contact me at [phone] by phone or if you have questions or concerns regarding this new plan of care! Sincerely, Srinivasan Gonsales DPT
--- NOTE | 2022-12-07 11:26 | HP.SPREEV_ITS ---
History History Date of Eval: 10/03/21 Attending Doctor: Referring Doctor: Smoking Status: Never smoker Hx Smoking: No Hx Tobacco Use: No Hx Smoking Exposure: No Pain Is pain an issue with your current prescribed condition?: No Personal Preferred language: [place] Patient Allergies Allergies Allergies: Allergies ceftriaxone Allergy (Verified 11/04/22 15:12) Rash ciprofloxacin [From Cipro] Allergy (Verified 11/04/22 15:12) Hives sulfamethoxazole [From Bactrim] Allergy (Verified 11/04/22 15:12) PT UNSURE OF REACTION trimethoprim [From Bactrim] Allergy (Verified 11/04/22 15:12) PT UNSURE OF REACTION Previous/Current Goals Goals 1-5 Previous Goal #1: Patient will describe common objects with at 5/6 details (use, action, group, association, location, description) and complete VNESTS to facilitate increased communication via circumlocution and decreased frustration with 90% acc on 3/4 measured sessions. Goal 1 Status: Goal Progressing: Semantic features - Trial 1) (fridge) 3/6 I, increased to 4/6 with max cues. Trial 2) (dog) 4/6 I, increased to 5/6 with mod cues Phonological Component Analysis introduced - x2 trials completed with cues from ST Previous Goal #2: Pt will utilize word finding strategies (circumlocution, pausing, tapping out syllables) and ask for clarification as needed during conversation with min cues during 90% of opportunities during 3/4 session. Goal 2 Status: Goal Progressing: Pt used strategies with I x 5. Pt required cues at times to describe and narrow it down. Introduced an aac yusef for a possible repair method. Pt activated multiple keys to make sentences on the yusef for practice and was receptive to the idea. Previous Goal #3: When provided with resources and training, pt will seek out support resources and utilize strategies at home to improve quality of life given min cues as measured by an average score of 3 on self & caregiver rating forms ( scale of 0-4, 0 = not doing, 1 = max cues, 2 = mod cues, 3 = min cues, 4 = I) during 3 sessions. Goal 3 Status: Goal Recently Introduced - Pt went to the stroke support group and felt it was helpful Previous Goal #4: During a communication breakdown in a session, pt will identify at least 2 ways to decrease his communication frustration and utilize one of the strategies during 2/3 communication breakdowns with up to min cues during 3/4 sessions. Goal 4 Status: Goal Progressing: Pt required max cues to use circumlocution and word repair strategies in conversation Previous Goal #5: Pt will produce 4-6 multisyllabic words given up to min cues with 80% acc during 3/4 sessions. Goal 5 Status: Goal MET: Pt I read 4-6 syllable words with 90% acc I, increased to 100% with cues Goals 6-10 Previous Goal #6: Pt will complete word finding drills re: opposite, synonyms, divergent & convergent naming, analogies, etc. to improve his circumlocution and word finding with 80 % acc I during 3 sessions Goal 6 Status: Goal Progressing: Antonyms - 5/5 I, Synonyms - 2/5 I, Analogies - 4/5 I Reference: Neuro-QoL instrument Radiation Oncology Patient Plan Plan Plan: Will recommend Pt for continued weekly outpatient speech therapy intervention address mild to moderate expressive and receptive aphasia. Pt would benefit verbal and visual modeling, verbal/visual and tactile cuing, repeated practice, circumlocution training, partner communication training, counseling, and immediate feedback to improve articulation. Without skilled intervention Pt is at risk for difficulty communicating basic, medical, emergent, social wants & needs, and interacting with family/friends at home, and during social interactions. Recommendations MBS: No Treatment Warranted: Yes Treatment Warranted: Receptive/ Expressive Language Progress Prognosis: Good Frequency Frequency: 1x/Week Duration: 2-4 Months Goals that are Established Determination:: Goals will be added/modified as deemed necessary and appropriate. Therapy will be discontinued when results of re-evaluation indicate therapy is no longer needed or lack of progress has been documented. Goal #1-5 Goal #1: Patient will describe common objects with at 5/6 details (use, action, group, association, location, description). complete ORAL AND MAXILLOFACIAL SURGERY and complete VNESTS to facilitate increased communication via circumlocutionand decreased frustration with 90% acc on 3/4 measured sessions. Goal #2: Pt will utilize word finding strategies (circumlocution, pausing, tapping out syllables) and ask for clarification as needed during conversation with min cues during 90% of opportunities during 3/4 session. Goal #3: When provided with resources and training, pt will seek out support resources and utilize strategies at home to improve quality of life given min cues as measured by an average score of 3 on self & caregiver rating forms (scale of 0-4, 0 = not doing, 1 = max cues, 2 = mod cues, 3 = min cues, 4 = I) during 3 sessions. Goal #4: During a communication breakdown in a session, pt will identify at least 2 ways to decrease his communication frustration and utilize one of the strategies during 2/3 communication breakdowns with up to min cues during 3/4 sessions. Goal #5: Pt will complete word finding drills re: opposite, synonyms, divergent & convergent naming, analogies, etc. to improve his circumlocution and word finding with 80% acc I during 3 sessions
--- NOTE | 2023-02-24 12:35 | HP.SPREEV_ITS ---
History History Date of Eval: 10/03/21 Attending Doctor: Referring Doctor: Smoking Status: Never smoker Hx Smoking: No Hx Tobacco Use: No Hx Smoking Exposure: No Pain Is pain an issue with your current prescribed condition?: No Personal Preferred language: [place] Patient Allergies Allergies Allergies: Allergies ceftriaxone Allergy (Verified 11/04/22 15:12) Rash ciprofloxacin [From Cipro] Allergy (Verified 11/04/22 15:12) Hives sulfamethoxazole [From Bactrim] Allergy (Verified 11/04/22 15:12) PT UNSURE OF REACTION trimethoprim [From Bactrim] Allergy (Verified 11/04/22 15:12) PT UNSURE OF REACTION Previous/Current Goals Goals 1-5 Previous Goal #1: Patient will describe common objects with at 5/6 details (use, action, group, association, location, description), complete TRAIN ELECTRONIC TECHNICIAN and complete VNESTS to facilitate increased communication via circumlocutionand decreased frustration with 90% acc on 3/4 measured sessions. Goal 1 Status: Pt can complete VNEST & TRAIN ELECTRONIC TECHNICIAN when provided with mod to max cues. Previous Goal #2: Pt will utilize word finding strategies (circumlocution, pausing, tapping out syllables) and ask for clarification as needed during conversation with min cues during 90% of opportunities during 3/4 session. Goal 2 Status: Goal Progressing: Pt tapped out a difficult phrase x5 with mod cues from ST Previous Goal #3: When provided with resources and training, pt will seek out support resources and utilize strategies at home to improve quality of life given min cues as measured by an average score of 3 on self & caregiver rating forms (scale of 0-4, 0 = not doing, 1 = max cues, 2 = mod cues, 3 = min cues, 4 = I) during 3 sessions. Goal 3 Status: Goal Met; Pt stated that he plans to attend the stroke support group at the hospital this month Previous Goal #4: During a communication breakdown in a session, pt will identify at least 2 ways to decrease his communication frustration and utilize one of the strategies during 2/3 communication breakdowns with up to min cues during 3/4 sessions. Goal 4 Status: Goal Progressing; During conversation, Ignacio participated in CPT corrections for anomia x5 cued, x2 I. Pt also practiced script phrases he can use during small talk conversation. Pt reported difficulty with anomia during small talk. A written guide with options was used and ST role played small talk conversation with 6 turns each with Pt using the script. Mod cues were required during the activity originally and pt completed tje script I after review. Also started a list of go-to conversation starters. Previous Goal #5: Pt will complete word finding drills re: opposite, synonyms, divergent & convergent naming, analogies, etc. to improve his circumlocution and word finding with 80% acc I during 3 sessions Goal 5 Status: Goal Progressing; Opposites: 60% acc I, increased to 90% with phonemic and verbal cues Synonyms: 30% acc I, increased to 70% with phonemic and verbal cues Goals 6-10 Previous Goal #6: Pt will complete word finding drills re: opposite, synonyms, divergent & convergent naming, analogies, etc. to improve his circumlocution and word finding with 80 % acc I during 3 sessions Goal 6 Status: Goal Progressing: Antonyms - 5/5 I, Synonyms - 2/5 I, Analogies - 4/5 I Reference: Neuro-QoL instrument Radiation Oncology Patient Plan Plan Plan: Will recommend Pt for continued weekly outpatient speech therapy intervention address mild to moderate expressive and receptive aphasia. Pt would benefit verbal and visual modeling, verbal/visual and tactile cuing, repeated practice, circumlocution training, partner communication training, counseling, and immediate feedback to improve articulation. Without skilled intervention Pt is at risk for difficulty communicating basic, medical, emergent, social wants & needs, and interacting with family/friends at home, and during social interactions. Recommendations MBS: No Treatment Warranted: Yes Treatment Warranted: Receptive/ Expressive Language Progress Prognosis: Good Frequency Frequency: 1x/Week Duration: 2-4 Months Goals that are Established Determination:: Goals will be added/modified as deemed necessary and appropriate . Therapy will be discontinued when results of re-evaluation indicate therapy is no longer needed or lack of progress has been documented. Goal #1-5 Goal #1: Patient will describe common objects with at 5/6 details (use, action, group, association, location, description), complete TRAIN ELECTRONIC TECHNICIAN and complete VNESTS to facilitate increased communication via circumlocution and decreased frustration with 90% acc on 3/4 measured sessions. Goal #2: Pt will utilize word finding strategies (circumlocution, pausing, tapping out syllables) and ask for clarification as needed during conversation with min cues during 90% of opportunities during 3/4 session. Goal #3: During a communication breakdown in a session, pt will identify at least 2 ways to decrease his communication frustration and utilize one of the strategies during 2/3 communication breakdowns with up to min cues during 3/4 sessions. Goal #4: Pt will complete word finding drills re: opposite, synonyms, divergent & convergent naming, analogies, etc. to improve his circumlocution and word finding with 80% acc I during 3 sessions Goal #5: Pt will complete word finding drills re: opposite, synonyms, divergent & convergent naming, analogies, etc. to improve his circumlocution and word finding with 80% acc I during 3 sessions
--- NOTE | 2023-03-16 15:33 | HP.PTREVAL ---
Re-Evaluation Intro: Dr. Tunde Beard, DO, It has been my pleasure to treat DANNY AQUINO over the last 70 visits for debility. Please see the progress note below for an update on the physical therapy plan of care! Subjective Subjective: Pt. reports doing okay today. Pt. reports being a little bit more tired today. Pt. has been trying to walk more at home, but is still using his motorized wc frequently and lift chair at home. Pt. has been coming into gym and trying to do some exercises, but not very frequently. Objective Objective/Function: GAIT: Pt. ambulated 1x112 feet, [id number]. and [id number]. Pt. was able to ambulate with CGA. Pt. has a marked flexed posture and increased difficulty with L foot clearance. He is pretty intermittent with this ability. He is able to correct with his L foot, but his toe will catch frequently. With increased VCing, but difficulty completing consistently. Pt. continues to have marked B hip flexor strength loss. He heavily uses Ad with his UEs resulting in UE fatigue. We have been working on LE strengthening and gait endurance and stability progression. Sit to stand: Pt. is able to complete with has to heavily use UEs to complete. He has to complete with a triceps dip then walk legs posteriorly under him. He then has to anterior wt. shift to get wt. over his feet then transition to his walker. Pt. also has difficulty with controlled lowering. I believe that his walking and balance has regressed a bit due to using his motorized wc more. He LE weakness is causing increased WBing through his arms resulting in increased UE strain. I would like to continue to work with him on strengthening and progressive walking in effort to increase overall independence and ability to safely walk throughout his home. Plan Plan Plan: I am recerting him to x1 per week for 4 weeks working on progressive LE strengthening, and gait. Balance/Gait/Functional tests Balance/Special Test Scores TUG Test Time Seconds: 97 Tug Test: >30sec.=impaired mobility Goals Goals Goal 1:: LTG: Pt. to be I with HEP. Goal Time Frame: 4-6 Weeks Goal Progress: Progressing Goal 2:: LTG: Pt. to complete sit to stand transfers SOTERO with FWW. Goal Time Frame: 4-6 Weeks Goal Progress: Progressing Goal 3:: LTG: Pt. to complete SPT with FWW SOTERO. Goal Time Frame: 4-6 Weeks Goal Progress: Progressing Goal 4:: LTG: pt. to be able to ambulate 350' with FWW SOTERO with good foot clearance of LLE. Goal Time Frame: 4-6 Weeks Goal Progress: Progressing Goal 5:: LTG: Pt. to have increased L ankle DF strength to 4+/5 allwoing for better foot clearance. Goal Time Frame: 4-6 Weeks Goal Progress: Progressing Anticipated Interventions Anticipated Interventions Patient/Client Instruction: Educate patient on: Condition, Plan of Care, Risk Factors and Benefits of Fitness Program For the Purpose of:: To improve decision making, To facilitate caregiver knowledge, To improve self management, To prevent re-injury and To improve ability to perform tasks related to life management Therapeutic Exercise to Include: Strength training, Power training, Endurance training, Balance training, Gait and locomotor training, Passive ROM and Active ROM For the Purpose of:: To decrease pain, To increase ROM, To improve nutrient delivery to tissue, To increase oxygenation perfusion, To improve muscle performance and motor function, To improve ability to perform ADL's, To improve ability of physical actions for home/community/work/leisure, To improve gait and locomotor functions, To improve health of tissue, To decrease soft tissue restriction and To increase flexibility/ROM Re-Evaluation Ending Re-evaluation ending: Please do not hesitate to contact me at [phone] by phone or if you have questions or concerns regarding this new plan of care! Sincerely, Srinivasan Gonsales DPT
--- NOTE | 2023-04-13 12:14 | HP.PTREVAL_ITS ---
Re-Evaluation Intro: Dr. Tunde Beard, DO, It has been my pleasure to treat DANNY AQUINO over the last 72 visits for debility. Please see the progress note below for an update on the physical therapy plan of care! Subjective Subjective: Pt. reports that he had a UTI over the past few weeks. Pt. is doing better, but has not been able to do much due to not feeling well. Pt. arrives with . She reports as well that he has had increased difficulty with getting up from his chair and has been doing less at home as he was sick. Objective Objective/Function: MMT: RLE: ankle 4/5 throughout; knee: ext 5/5, flexion 4+/5; hip: flexion 2/5, abd 2/5, ext 4/5. LLE: ankle 4/5 throughout; knee: ext 5/5, flexion 4+/5; hip: flexion 2/5, abd 2/5, ext 4/5. 30 sec sit to stand rep test: Pt. completed 2 with use of UEs. Pt. is unable to complete without use of UEs. Sit to stand: Pt. tends to stand then walk his legs back to get to standing, difficult to transition UEs from chair to FWW. Much better with transitioning UEs to chair from AD. GAIT: pt. ambulated 1x75', 1x90' and 145' with FWW. Pt. continues to have difficulty with foot clearance of BLEs, L worse than R. TU sec with use of FWW. Difficulty iwth sit to stand and with directional changes. Plan Plan Plan: I am going to see patient to progress gait, sit to stand, and LE strength. I also advised him to follow up with physician as well. Pt. consents. Balance/Gait/Functional tests Balance/Special Test Scores TUG Test Time Seconds: 97 Tug Test: >30sec.=impaired mobility Goals Goals Goal 1:: LTG: Pt. to be I with HEP. Goal Time Frame: 4-6 Weeks Goal Progress: Progressing Goal 2:: LTG: Pt. to complete sit to stand transfers SOTERO with FWW. Goal Time Frame: 4-6 Weeks Goal Progress: Progressing Goal 3:: LTG: Pt. to complete SPT with FWW SOTERO. Goal Time Frame: 4-6 Weeks Goal Progress: Progressing Goal 4:: LTG: pt. to be able to ambulate 350' with FWW SOTERO with good foot clearance of LLE. Goal Time Frame: 4-6 Weeks Goal Progress: Progressing Goal 5:: LTG: Pt. to have increased L ankle DF strength to 4+/5 allwoing for better foot clearance. Goal Time Frame: 4-6 Weeks Goal Progress: Progressing Anticipated Interventions Anticipated Interventions Patient/Client Instruction: Educate patient on: Condition, Plan of Care, Risk Factors and Benefits of Fitness Program For the Purpose of:: To improve decision making, To facilitate caregiver knowledge, To improve self management, To prevent re-injury and To improve ability to perform tasks related to life management Therapeutic Exercise to Include: Strength training, Power training, Endurance training, Balance training, Gait and locomotor training, Passive ROM and Active ROM For the Purpose of:: To decrease pain, To increase ROM, To improve nutrient delivery to tissue, To increase oxygenation perfusion, To improve muscle performance and motor function, To improve ability to perform ADL's, To improve ability of physical actions for home/community/work/leisure, To improve gait and locomotor functions, To improve health of tissue, To decrease soft tissue res triction and To increase flexibility/ROM Re-Evaluation Ending Re-evaluation ending: Please do not hesitate to contact me at [phone] by phone or if you have questions or concerns regarding this new plan of care! Sincerely, Srinivasan Gonsales DPT
--- NOTE | 2023-05-18 16:47 | HP.SP.REEV ---
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 Goal 1 Status: Goal Progressing: Worked on describing using the [employer] [facility] application prompts. Trial 1) 4/10, increased to 5/10 cued Trial 2) 7/10, increased to 8/10 cued Trial 3) 9/10, increased to 10/10 cued Previous Goal #2: Pt will utilize word finding strategies (circumlocution, pausing, tapping out syllables) and ask for clarification as needed during conversation with min cues during 90% of opportunities during 3/4 session. Goal 2 Status: Goal Partially Met: Pt I identified 4/10 word finding strategies today. ST used strategies to demonstrate and had the pt guess 5 words. After each word, ST reviewed which strategies she used to help the get guess the word & why some strategies worked or didn't work. In conversation, pt used word finding strategies with following accuracy I; delay x10, synonym x1 cued; letter x2, describe x1 Pt asked for clarification as needed in conversation over 3 measured sessions Previous Goal #3: During a communication breakdown in a session, pt will identify at least 2 ways to decrease his communication frustration and utilize one of the strategies during 2/3 communication breakdowns with up to min cues during 3/4 sessions. Goal 3 Status: Goal Progressing: Pt stated that he was very frustrated with his word finding today. Reviewed 10 word finding strategies & provided direct education. Pt will pause, but he will not use anymore. Pt used gesturing, pausing, first sound, and writing/drawing x10 during conversation with cues to practice. Provided education on anomia & importance of using strategies. Previous Goal #4: Pt will complete word finding drills re: opposite, synonyms, divergent & convergent naming, analogies, etc. to improve his circumlocution and word finding with 80% acc I during 3 sessions Goal 4 Status: Goal Progressing: Category naming; 4/6 I, increased to 6/6 with choice of 3 Adding 3 words to the category; 4/6 I, increased to 5/6 with cues Reference: Neuro-QoL instrument Radiation Oncology Patient Plan Plan Plan: Will recommend Pt for continued weekly outpatient speech therapy intervention address mild to moderate expressive and receptive aphasia. Pt would benefit verbal and visual modeling, verbal/visual and tactile cuing, repeated practice, circumlocution training, partner communication training, counseling, and immediate feedback to improve articulation. Without skilled intervention Pt is at risk for difficulty communicating basic, medical, emergent, social wants & needs, and interacting with family/friends at home, and during social interactions. Recommendations MBS: No Treatment Warranted: Yes Treatment Warranted: Receptive/ Expressive Language Progress Prognosis: Excellent Frequency Frequency: 1x/Week Duration: 2-4 Months Goals that are Established Determination:: Goals will be added/modified as deemed necessary and appropriate. Therapy will be discontinued when results of re-evaluation indicate therapy is no longer needed or lack of progress has been documented. Goal #1-5 Goal #1: Patient will describe common objects with at 5/6 details (use, action, group, association, location, description), complete H[employer]OTBALL COACH and complete VNESTS to facilitate increased communication via circumlocution and decreased frustration with 90% acc on 3/4 measured sessions. Goal #2: Pt will utilize word finding strategies as needed during conversation, structured and unstructured tasks with up to min during 90% of opportunities during 3/4 session. Goal #3: During a communication breakdown in a session, pt will identify at least 2 ways to decrease his communication frustration and utilize one of the strategies during 2/3 communication breakdowns with up to min cues during 3/4 sessions. Goal #4: Pt will complete word finding drills re: opposite, synonyms, divergent & convergent naming, analogies, etc. to improve his circumlocution and word finding with 80% acc I during 3 sessions
== END 2023-05-25 19:00 | disposition home or self-care (01) ==
LOC: PT 13:30
PROVIDERS: PCP Preventive Medicine Occupational Medicine; Referring Provider Family Medicine Geriatric Medicine; Visit Provider Preventive Medicine Occupational Medicine
DX: I69.320 Aphasia following cerebral infarction (principal)
CPT/HCPCS: 92507; 97110; 97164

== ENCOUNTER → 2023-07-21 | Outpatient (CLI) | payer MEDICARE, OTHER, SELFPAY ==
--- NOTE | 2023-07-21 13:54 | CT_ITS ---
EXAM: CT ABDOMEN AND PELVIS WITHOUT INTRAVENOUS CONTRAST CLINICAL INDICATION: GROSS HEMATURIA TECHNIQUE: Helically acquired images were obtained of the abdomen and pelvis without intravenous contrast. This CT exam was performed using one or more of the following dose reduction techniques: automated exposure control, adjustment of the mA and/or kV according to patient size, and/or use of iterative reconstruction technique. RADIATION DOSE: CTDIvol = 19.97 mGy, DLP = 1002.86 mGy-cm COMPARISON: No relevant prior studies available. FINDINGS: LOWER THORAX: Unremarkable. Lung bases are clear. No cardiomegaly. No significant pericardial effusion. ABDOMEN: LIVER: Hepatomegaly versus prominent Antonio''s lobe, the right lobe of the liver is 21.4 cm. Presumed 2.4 cm cyst at the upper liver. GALLBLADDER AND BILE DUCTS: Partially contracted gallbladder. No calcified gallstones. No gallbladder distention or wall edema. No intra- or extrahepatic biliary ductal dilation. PANCREAS: Unremarkable. No focal cystic mass. SPLEEN: Mild splenomegaly, 14.7 cm craniocaudal. ADRENALS: Unremarkable. No nodules. KIDNEYS AND URETERS: Multiple and bilateral hypodense renal lesions. Predominantly due to cysts, not fully characterized on unenhanced exam. No hydronephrosis or ureter stone. Large partially bridging stone lower pole right kidney, at least 1.5 cm x 0.8 cm. STOMACH AND BOWEL: Mild fluid and gas in the stomach. No dilated small bowel loops. Moderate stool in the proximal three quarters of the colon. Moderate gas in the redundant sigmoid. Mild stool in the distal sigmoid and rectum. No focal inflammatory change. PELVIS: APPENDIX: No evidence of acute appendicitis. BLADDER: Moderately thick walled minimally distended urinary bladder with what appear to be several small diverticuli, correlate with evidence of cystitis. REPRODUCTIVE: Marked prostatomegaly, mild soft tissue stranding around the prostate. 6.9 cm x 6.3 cm x 6.9 cm. ABDOMEN and PELVIS: INTRAPERITONEAL SPACE: Unremarkable. No ascites or other fluid collection. No free air. BONES/JOINTS: Moderate multilevel degenerative spine changes. No visible spinal stenosis. No suspicious lytic or blastic abnormality. SOFT TISSUES: Fat-containing umbilical hernia with small neck and internal and surrounding soft tissue stranding, correlate with location of pain. The neck is roughly 1.3 cm craniocaudal, herniated fat roughly 3 cm x 2.8 cm. Mild fat-containing inguinal hernias. VASCULATURE: Heavily calcified and apparently markedly stenotic origins of the SMA and left renal artery no aortic aneurysm or dissection. LYMPH NODES: Unremarkable. No enlarged lymph nodes. 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 Small pericardial effusion, at least 1.[address]/Abdomen/Pelvis without Cont IMPRESSION: 1. Marked prostatomegaly mild hazy soft tissue stranding. 2. 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 3. Prominent colon contents. Mildly thick-walled appearance of the rectum and anus, please correlate with recent screening for neoplasm or appropriate follow-up. 4. Hepatosplenomegaly. 5. Advanced atherosclerotic changes including prominent appearing calcified plaque and stenoses in the the SMA and one of the 2 major left renal arteries. Multiple and bilateral presumed renal cysts, not fully characterized on unenhanced CT. 6. Small neck umbilical hernia containing fat with mild soft tissue stranding. Cannot exclude strangulated umbilical herniated fat in the appropriate clinical setting. 7. Mild fat-containing hernias Electronically Signed: Calista Mattson MD at 7:22 EDT ,
== END | disposition home or self-care (01) ==
LOC: CT 13:53
PROVIDERS: PCP Preventive Medicine Occupational Medicine; Referring Provider Urology; Visit Provider Urology
DX: N31.2 Flaccid neuropathic bladder, not elsewhere classified (principal); N30.01 Acute cystitis with hematuria
CPT/HCPCS: 74176

== ENCOUNTER 2023-10-02 13:57 | Inpatient (IN) | payer MEDICARE, OTHER, SELFPAY ==
[2023-10-02 13:58] VITALS: BP 124/70; PULSE 58; RESP 16; TEMP 37.2; O2SAT 97
[2023-10-02 14:00] VITALS: BMI 35.6
--- NOTE | 2023-10-02 14:16 | EX.ED.GUMALE ---
HPI History of Present Illness Chief Complaint: Complaint Detail of Chief Complaint: Urinary tract infection Informant: patient and family Narrative Narrative: Patient presents to the emergency department complaint of urinary tract infection. Patient states that last week family was concerned because he was running low-grade temps and his urine was dark so they took a urine sample to primary care physician who sent off a culture. 2 days ago they were called and told that he had a bacterial infection with a bacteria that may not only respond to IV antibiotics although patient had been started on Macrobid. They were advised to keep an eye on the patient and if he got worse to come to the emergency department. Family does not know what kind bacteria grew out or what it was sensitive to. Patient's had low-grade fevers at home. He had some chills. Patient does have history of hemiplegia. A straight cath him. He gets frequent urinary tract infections. 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 Neurogenic bladder Neurogenic bowel Neuropathy 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.9) Paraplegia Premature ventricular contractions Prostatic hypertrophy Sick sinus syndrome Sick sinus syndrome Spinal cord injury Subluxation of C6-C7 cervical vertebrae TIA (transient ischemic attack) Home Medications ?Medication ?Instructions ?Recorded ?Last Taken ?Type lisinopril 20 mg tablet 20 mg PO DAILY blood pressure 06/24/15 03/28/19 History ascorbic acid (vitamin C) 500 mg 1,000 mg PO LUNCH supplement 08/17/21 Unknown History tablet carvedilol 12.5 mg tablet 12.5 mg PO Q12H BP 30 days #60 tabs 09/03/21 Unknown Rx tamsulosin 0.4 mg capsule 0.4 mg PO QHS Urine retention 30 09/03/21 Unknown Rx days #30 caps citalopram 20 mg tablet 20 mg PO QHS depression 12/04/21 Unknown History gabapentin 300 mg capsule 600 mg PO BID Nerve pain 12/04/21 Unknown History potassium chloride 10 mEq 10 meq PO DAILY supplement 05/19/22 Unknown History tablet,extended release(part/cryst) nifedipine 30 mg tablet,extended 30 mg PO DAILY BP 11/04/22 Unknown History release apixaban 5 mg tablet (Eliquis) 5 mg PO BID blood thinner #180 tabs 02/02/23 Unknown Rx Allergy/AdvReac Type Severity Reaction Status Date / Time ceftriaxone Allergy Rash Verified 10/02/23 13:58 ciprofloxacin (From Cipro) Allergy Hives Verified 10/02/23 13:58 sulfamethoxazole (From Allergy PT UNSURE Verified 10/02/23 13:58 Bactrim) OF REACTION trimethoprim (From Bactrim) Allergy PT UNSURE Verified 10/02/23 13:58 OF REACTION Family History (Reviewed 05/04/23 @ 11:39 by Alessandra Melchor ORNAMENTAL RAIL INSTALLER, ORNAMENTAL RAIL INSTALLER-C) Mother Breast cancer Cancer Brain cancer Sister Diabetes Hypertension CHF (congestive heart failure) Kidney disease Sister CHF (congestive heart failure) Cardiac defibrillator in situ Other Family history of hypertension Surgical History (Reviewed 05/04/23 @ 11:39 by Alessandra Melchor ORNAMENTAL RAIL INSTALLER, ORNAMENTAL RAIL INSTALLER-C) History of neck surgery History of permanent cardiac pacemaker placement S/P cervical spinal fusion Social History household members: spouse Smoking Status: Never smoker alcohol intake: current alcohol intake frequency: holidays/special occasions only Alcohol type: wine substance use type: does not use caffeine: Yes Type: coffee Number of servings: 1 what type of physical activity do you participate in: other details: Health point frequency: 1-2 times per week duration: 45-60 minutes/day seatbelt use: always do you feel safe at home: Yes ROS ROS ED Review of Systems ROS Unobtainable: other Constitutional Constitutional ED: Reports chills, fever(s) and lethargy; Denies sweats or weight loss Eyes Eyes: Denies blurry vision, change in vision or diplopia ENT ENT ED: Denies rhinorrhea or sore throat Cardiovascular Cardiovascular: Denies chest pain, orthopnea or racing heartbeat Respiratory/Chest Respiratory/Chest: Denies cough, dyspnea, dyspnea on exertion, orthopnea or sputum Gastrointestinal Gastrointestinal: Denies abdominal pain, diarrhea, nausea or vomiting Genitourinary Genitourinary ED: Denies dysuria, hematuria or urinary frequency Musculoskeletal Musculoskeletal: Denies arthralgias, back pain, myalgias or neck pain Integumentary Denies abscess, Abrasions or rash Neurologic Neurologic: Denies headache(s) or weakness Psychiatric Psychiatric: Denies anxiety, depression or suicidal thoughts Endocrine Endocrinology: Denies polydipsia, polyphagia or polyuria Hematologic/Lymphatic Hematologic/Lymphatic: Denies easy bleeding, easy bruising or lymphadenopathy Allergic/Immunologic Allergic/Immunologic ED: Denies mouth swelling, tongue swelling or urticaria EXAM Physical Exam Const Vital Signs: 10/02/23 13:58 Temperature 99 F Temperature Source Temporal Pulse Rate 58 L Respiratory Rate 16 Blood Pressure 124/70 H Blood Pressure Mean 88 Pulse Ox 97 Oxygen Delivery Method Room Air Positive well nourished and well developed General Appearance ED: well developed and NAD HEENT Reports TM's clear and moist mucous membranes normocephalic and atraumatic; Negative for trauma or tenderness Tympanic Membrane ED: Yes TM's clear Eyes PERRL and EOMs intact bilaterally General Eye ED: Negative for pale conjunctiva or scleral icterus Neck no lymphadenopathy, supple and no JVD General: Negative for tenderness Chest Wall inspection of chest normal and palpation of chest normal Chest: Negative for tenderness Resp normal respiratory effort and clear to auscultation bilaterally Effort and Inspection: Negative for respiratory distress or pain with movement Auscultation: Negative for rhonchi, wheezes or diminished lung sounds Cardio regular rate, regular rhythm, S1 normal heart sound, S2 normal heart sound and no murmurs Peripheral Pulses: pulses 2+ throughout GI normal to inspection, nondistended, normoactive bowel sounds, soft to palpation, non-tender, non-distended and no masses Back/Spine no CVA tenderness and no thoracic nor lumbar tenderness Extremity normal to inspection General Extremety ED: Negative for edema General Extremity: Negative for edema Neuro oriented x3, CN's II-XII intact bilaterally, no sensory deficits noted and gait normal Sensorium / Orientation: awake, alert, oriented to person, oriented to place and oriented to time Motor Exam: strength 5/5 throughout and strength abnormal Psych mental status grossly normal Skin no rashes or lesions noted and no wounds MDM MDM MDM Narrative Medical decision making narrative: Patient presents with concern for UTI with culture showing need for IV antibiotics given patient's allergy list. He was empirically started on Macrobid before culture results. Patient continues to have low-grade temps. IV line established. CBC with differential obtained was unremarkable. Chemistries unremarkable. Lactate was normal. Urinalysis ordered and pending. Patient was started on Zosyn IV as I was able to find his culture and sensitivities and he did grow out Pseudomonas aeruginosa. Discussed case with hospitalist last I speak with infectious disease. I discussed case with Dr. Catherine and he agrees that patient will need IV antibiotics and there is no oral option given patient allergy to fluoroquinolones. Lab Data Attestation: I reviewed the patient's lab results. Discharge Plan Triage Chief Complaint: Complaint ED Provider: Jesse Yee Dx/Rx/DC Orders Clinical Impression: Acute UTI, History of peristent atrial fibrillation, History of BPH Prescriptions: No Action citalopram 20 mg tablet 20 mg PO QHS gabapentin 300 mg capsule 600 mg PO BID potassium chloride 10 mEq tablet,ER particles/crystals 10 meq PO DAILY nifedipine 30 mg tablet extended release 30 mg PO DAILY lisinopril 20 MG tablet 20 mg PO DAILY Patient Comments: BLOOD PRESSURE ascorbic acid (vitamin C) 500 mg tablet 1,000 mg PO LUNCH carvedilol 12.5 mg Tablet 12.5 mg PO Q12H 30 Days Qty: 60 0RF tamsulosin 0.4 mg Capsule 0.4 mg PO QHS 30 Days Qty: 30 0RF Eliquis 5 mg tablet 5 mg PO BID Qty: 180 4RF Primary Care Provider: Tunde Beard Referrals: Tunde Beard DO [Primary Care Provider] - Print Language: Albanian Disposition Disposition: Acute Care Hospital [facility]
[2023-10-02 14:55] LABS: Absolute Lymphocyte Count 0.86 X10^3/uL (0.83-4.51); Absolute Neutrophil Count 3.8 X10^3/uL (2.0-7.7); Basophil# 0.02 X10^3/uL; Basophil% 0.4 % (0-1); Eosinophil# 0.11 X10^3/uL; Eosinophils% 2.2 % (0-5); Lymphocyte # 0.86 X10^3/ul (0.83-4.51); Lymphocyte % 16.9 % (19-41); Mean Corp Hgb Conc 32.4 g/dL (32-36); Mean Corpuscular Hgb 29.2 pg (27.0-32.0); Mean Platelet Vol. 10.3 fl (6.2-12.0); Monocyte# 0.34 X10^3/uL; Monocyte% 6.7 % (0-10); NRBC Flagged by Analyzer 0 % (0-5); Neutrophil # 3.76 X10^3/uL (2.7-7.7); Neutrophil % 73.6 % (47-70); Platelet Count 162 K/mm3 (150-450); RBC Distribution Width SD 49.7 fl (35.1-43.9); Red Blood Count 4.11 M/mm3 (4.6-6.2); White Blood Count 5.1 K/mm3 (4.4-11.0)
[2023-10-02] MEDS: 0.9% Normal Saline (1000mL) 1,000 ML 150 ML IV (15:01)
[2023-10-02] MEDS: Piperacil/Tazobactam 4.5 GM in 0.9% Normal Saline (100mL MB+) 100 ML IV (15:01)
[2023-10-02 15:09] LABS: Anion Gap 6 (5-15); BUN 26 mg/dL (7-18); BUN/Creat Ratio 23.9 RATIO (10-20); Calcium,Total 8.9 mg/dL (8.5-10.1); Chloride 107 mmol/L (98-107); Creatinine, Serum 1.09 mg/dL (0.70-1.30); EST Glomerular Filtration Rate 70 mL/min (>60); Est Glom Filt Rate - Afr Amer 84 mL/min (>60); Glucose 133 mg/dL (74-106); Sodium Level 140 mmol/L (136-145)
[2023-10-02 15:15] LABS: Mucous, Urine 0 SEEN /hpf (<or=2+); Red Blood Cells-Urine 0 SEEN /hpf (0-5)
[2023-10-02 15:18] LABS: Lactic Acid 1.6 mmol/L (0.4-1.9)
[2023-10-02 15:20] VITALS: BP 147/79; PULSE 67; RESP 18; TEMP 36.3; O2SAT 97
[2023-10-02 15:34] LABS: Color, Urine Yellow (Yellow); Glucose, Dipstick Normal (Normal); Ketone-Dipstick Negative (Negative); Leukocyte Esterase-Dipstick 500 /ul (Negative); Nitrite-Dipstick Negative (Negative); Occult Blood-Urine 150 /ul (Negative); Protein-Dipstick 30 mg/dl (Negative); Urine Bilirubin Dipstick Negative (Negative); Urine Clarity Cloudy (Clear); Urine Urobilinogen Normal (Normal)
[2023-10-02 15:52] LABS: Bacteria 2+ /hpf (None Seen); Squamous Epithelial Cells - UA 0-5 SEEN /hpf (0-5)
[2023-10-02 15:53] LABS: White Blood Cells >100 SEEN /hpf (0-5)
[2023-10-02 16:00] VITALS: BP 174/86; PULSE 61; RESP 17; TEMP 36.2; O2SAT 97
--- NOTE | 2023-10-02 16:03 | PCM.HP.STD ---
HPI - General General Date of Admission: 10/02/23 Date of Service: 10/02/23 Chief Complaint: UTI HPI Narrative DANNY AQUINO, is a 78 M who presented to the emergency department at [facility] on 10/02/2023 due to urinary tract infection. Patient reports that he has a history of frequent UTIs. He has a history of paraplegia and intermittently self caths at home. Last week his family was concerned because he was running low-grade temps (nothing greater than 100) and his urine looked dark so they took him to his primary care physician who sent off a urine culture. At that time he was started on Macrobid empirically. On they were called and told that he had a bacterial infection with a bacteria that may not respond oral antibiotics so they advised the family to keep an eye on him and if he got worse to come the emergency department. Family states he really has not gotten any worse but he has not gotten better either so they were concerned and brought him into the emergency department. Patient denies any chills, nausea, vomiting, abdominal pain or pain otherwise. Family was unclear what kind of bacteria grew in the culture however the emergency department physician was able to ascertain culture results and it shows that he has Pseudomonas with intermediate sensitivity to fluoroquinolones. Emergency department physician did discuss the case with infectious disease as we were wondering if fosfomycin would be a potential oral option however he felt that IV antibiotics were required therefore admission was pursued. He was given IV Zosyn in the emergency department. Vital signs on presentation showed a temperature of 99, heart rate 58, respiratory rate 16, blood pressure 124/70, oxygen saturation was 97% on room air. His CBC is unremarkable when compared to previous and he has no leukocytosis with a white count of 5.1 however he does have a significant left shift having a 73.6% neutrophilia. His chemistry panel was unremarkable. Lactic acid was 1.6. UA is consistent with infection showing occult blood, leuk esterase, 100 white cells per high-power field and 2+ bacteria. 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 Depression Hypertension Atrial fibrillation Anterior communicating artery aneurysm Atrial fibrillation History of DVT (deep vein thrombosis) AAA (abdominal aortic aneurysm) without rupture Sick sinus syndrome Family history of hypertension History of spinal cord injury Paraplegia Premature ventricular contractions BPH (benign prostatic hypertrophy) Depression Cervical spinal stenosis Spinal cord injury Neurogenic bladder Degenerative joint disease (DJD) of lumbar spine Anemia Central cord syndrome Subluxation of C6-C7 cervical vertebrae 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.9) Home Medications ?Medication ?Instructions ?Recorded ?Last Taken ?Type lisinopril 20 mg tablet 20 mg PO DAILY blood pressure 06/24/15 03/28/19 History ascorbic acid (vitamin C) 500 mg 1,000 mg PO LUNCH supplement 08/17/21 Unknown History tablet carvedilol 12.5 mg tablet 12.5 mg PO Q12H BP 30 days #60 tabs 09/03/21 Unknown Rx tamsulosin 0.4 mg capsule 0.4 mg PO QHS Urine retention 30 09/03/21 Unknown Rx days #30 caps citalopram 20 mg tablet 20 mg PO QHS depression 12/04/21 Unknown History gabapentin 300 mg capsule 600 mg PO BID Nerve pain 12/04/21 Unknown History potassium chloride 10 mEq 10 meq PO DAILY supplement 05/19/22 Unknown History tablet,extended release(part/cryst) nifedipine 30 mg tablet,extended 30 mg PO DAILY BP 11/04/22 Unknown History release apixaban 5 mg tablet (Eliquis) 5 mg PO BID blood thinner #180 tabs 02/02/23 Unknown Rx Allergy/AdvReac Type Severity Reaction Status Date / Time ceftriaxone Allergy Rash Verified 10/02/23 13:58 ciprofloxacin (From Cipro) Allergy Hives Verified 10/02/23 13:58 sulfamethoxazole (From Allergy PT UNSURE Verified 10/02/23 13:58 Bactrim) OF REACTION trimethoprim (From Bactrim) Allergy PT UNSURE Verified 10/02/23 13:58 OF REACTION Family History Mother Breast cancer Cancer Brain cancer Sister Diabetes Hypertension CHF (congestive heart failure) Kidney disease Sister CHF (congestive heart failure) Cardiac defibrillator in situ Other Family history of hypertension Surgical History History of neck surgery History of permanent cardiac pacemaker placement S/P cervical spinal fusion Social History household members: spouse Smoking Status: Never smoker alcohol intake: current alcohol intake frequency: holidays/special occasions only Alcohol type: wine substance use type: does not use caffeine: Yes Type: coffee Number of servings: 1 what type of physical activity do you participate in: other details: Health point frequency: 1-2 times per week duration: 45-60 minutes/day seatbelt use: always do you feel safe at home: Yes ROS Constitutional Constitutional: Reports fatigue, fever(s) and weakness; Denies anorexia, change in weight, chills, malaise, night sweats or other Eyes Eyes: Denies blurry vision, change in eye color, change in vision, discharge from eye(s), double vision, erythema, eye pain, loss of vision or other ENT HEENT: Reports abnormal hearing and hearing loss; Denies dysphagia, ear pain, epistaxis, headache(s), nasal congestion, nasal discharge, post nasal drip, sinus pressure, sore throat or other Cardiovascular Cardiovascular: Reports edema; Denies chest pain, claudication, dyspnea on exertion, lightheadedness, orthopnea, palpitations, paroxysmal nocturnal dyspnea, rapid heart rate, syncope or other Respiratory/Chest Respiratory/Chest: Denies cough, dyspnea, excessive phlegm production, hemoptysis, productive cough, shortness of breath at rest, shortness of breath with exertion, wheezing or other Gastrointestinal Gastrointestinal: Denies abdominal pain, coffee ground emesis, constipation, diarrhea, dyspepsia, hematemesis, hematochezia, loose stools, melena, nausea, vomiting or other Genitourinary Genitourinary: Denies burning urination, difficulty urinating, dysuria, hematuria, nocturia, urinary frequency, urinary hesitancy, urinary incontinence, urinary urgency or other Musculoskeletal Musculoskeletal: Denies arthralgias, back pain, joint pain, joint stiffness, joint swelling, myalgias, neck pain or other Neurologic Neurologic: Reports abnormal gait, focal weakness, numbness and paresthesias; Denies abnormal speech, confusion, disequilibrium, dizziness, headache(s), seizure-like activity, seizures, syncope, tingling, tremor(s) or other Psychiatric Psychiatric: Reports anxiety and depression; Denies homicidal ideation, suicidal ideation or other Endocrine Endocrinology: Denies change in body appearance, cold intolerance, excessive sweating, heat intolerance, polydipsia, polyuria or other Hematologic/Lymphatic Hematologic/Lymphatic: Denies anemia, easy bleeding, easy bruising, lymphadenopathy or other Allergic/Immunologic Allergic/Immunologic: Denies rhinitis, hives, eczemia, asthma or other Vital Signs Vital Signs Vital Signs: 10/02/23 13:58 10/02/23 15:20 Temperature 99 F 97.4 F L Temperature Source Temporal Temporal Pulse Rate 58 L 67 Respiratory Rate 16 18 Blood Pressure 124/70 H 147/79 H Blood Pressure Mean 88 101 Pulse Ox 97 97 Oxygen Delivery Method Room Air Room Air Weight Weight: 109.7 kg Body Mass Index (BMI) 35.6 Physical Exam Const alert, oriented x3, no apparent distress and well nourished; Negative for average body habitus or healthy appearing Constitutional Narrative: Older, white male, sitting up in bed, dozing off intermittently throughout our conversation, family at bedside giving most of history, patient does not appear toxic, no signs of discomfort, interacts appropriately when he awakens General Appearance: cooperative HEENT normocephalic and head/scalp atraumatic; Negative for hearing grossly normal bilaterally HEENT Narrative: Moderate hearing loss, Mallampati 2, no thrush Eyes PERRL, EOMs intact bilaterally and conjunctivae normal Eyes Narrative: No scleral icterus Neck no lymphadenopathy and supple Neck Narrative: Trachea midline, no thyroid enlargement Resp normal respiratory effort, no retractions, no use of accessory muscles and clear to auscultation bilaterally Auscultation: Negative for rales, rhonchi or wheezes Cardio regular rate, regular rhythm, S1 normal heart sound, S2 normal heart sound, no murmurs, no rub, no gallops and no clicks GI normal to inspection, nondistended, normoactive bowel sounds, soft to palpation and non-tender Extremity Extremity Narrative: 3+ pitting edema bilateral lower extremities from feet up to mid calf region that is chronic, no cyanosis or clubbing Neuro oriented x3 and CN's II-XII intact bilaterally Neuro Narrative: Patient with bilateral lower extremity weakness due to previous spinal cord injury and bilateral upper extremity weakness, limited movement of left upper extremity due to fracture clavicle Speech: speech normal Psych Psych Narrative: Affect is flat patient seen fatigue but interacts appropriately once awake and Results Lab / Micro Data 10/02/23 14:40 10/02/23 14:40 Labs: Laboratory Results - last 24 hr 10/02/23 14:40: WBC 5.1, RBC 4.11 L, Hgb 12.0 L, Hct 37.0 L, MCV 90.0, MCH 29.2, MCHC 32.4, RDW Std Deviation 49.7 H, RDW Coeff of Donna 15.0 H, Plt Count 162, MPV 10.3, Immature Gran % (Auto) 0.200, Neut % (Auto) 73.6 H, Lymph % (Auto) 16.9 L, Slope % (Auto) 6.7, Eos % (Auto) 2.2, Baso % (Auto) 0.4, Absolute Neuts (auto) 3.8, Absolute Lymphs (auto) 0.86, Nucleated RBC % 0, Sodium 140, Potassium 4.0, Chloride 107, Carbon Dioxide 27.0, Anion Gap 6, BUN 26 H, Creatinine 1.09, Est GFR (MDRD) Af Amer 84, Est GFR (MDRD) Non-Af 70, BUN/Creatinine Ratio 23.9 H, Glucose 133 H, Lactic Acid 1.6, Calcium 8.9 10/02/23 15:10: Urine Color Yellow, Urine Clarity Cloudy, Urine pH 7.0, Ur Specific [place] 1.010, Urine Protein 30 H, Urine Glucose (UA) Normal, Urine Ketones Negative, Urine Occult Blood 150 H, Urine Nitrite Negative, Urine Bilirubin Negative, Urine Urobilinogen Normal, Ur Leukocyte Esterase 500 H, Urine RBC 0 SEEN, Urine WBC >100 SEEN, Ur Squamous Epith Cells 0-5 SEEN, Urine Bacteria 2+, Urine Mucus 0 SEEN Assessment & Plan Assessment/Plan (1) History of BPH: (2) Pseudomonas urinary tract infection: (3) Closed left clavicular fracture: (4) Neurogenic bladder: PLAN: Plan Resistant Pseudomonas urinary tract infection -Cx is in [facility] and results have been printed out and placed on the hard chart -Patrica started the emergency department and will continue on admission -Will likely need PICC line and home health care for IV antibiotics after discharge -Consult infectious disease for assistance with discharge planning and antibiotic usage Neurogenic bladder/history of BPH -Patient's caths him 4-5 times a day at home and he uses a condom catheter nightly -Nursing communication to straight cath every 4 hours while hospitalized and condom catheter at night for nights only -Condom Catheter will not be sufficient for 05/10 as he has retention and does not completely empty -Continue home Flomax Left clavicular fracture -Patient is 3 weeks post fracture -Following at [facility]--> Sees [facility] -Thus far management is nonoperative -Will need careful manipulation of left upper extremity with transfers and mobility Generalized weakness -PT/OT consult -Consult case management/neonatal social worker for assistance with discharge planning -Patient will most likely need home health care for antibiotics at the very least at the time of discharge PAF/SSS -Pacemaker in place--> is MR-compatible and was placed in 2015 -Continue outpatient pacemaker checks as scheduled -Continue home apixaban 5 mg p.o. twice daily -Continue home carvedilol 12.5 mg p.o. 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 C5-C6 level incomplete quadriplegia -Treatment as above -Continue home gabapentin Chronic constipation secondary to neurogenic bowel -Continue home bowel regimen -As needed medication available History of DVT -Continue home apixaban History of CVA/TIA -Continue apixaban -Occurred in June 2021 -Does not follow with neurology and does not desire to follow-up with neurology Chronic bilateral lower extremity edema -Secondary to immobility from SCI Depression -Continue home citalopram DVT prophylaxis -Continue home apixaban CODE STATUS Full code is verified at the time of admission Charges/Coding Visit Charges Inpatient E&M: 90967 Init Hosp L2
[2023-10-02 16:06] VITALS: BP 174/86; PULSE 62; RESP 17; TEMP 36.2; O2SAT 98
[2023-10-02 16:44] VITALS: BMI 34.4
[2023-10-02 17:00] VITALS: BP 174/92; PULSE 66; RESP 18; TEMP 36.9; O2SAT 99
[2023-10-02] MEDS: Gabapentin 600 MG Tablet PO (17:39)
[2023-10-02] MEDS: Carvedilol 12.5 MG Tablet PO (17:39)
[2023-10-02 20:37] VITALS: BP 151/82; PULSE 66; RESP 16; TEMP 36.6; O2SAT 97
[2023-10-02] MEDS: Piperacil/Tazobactam 3.375 GM in 0.9% Normal Saline (50mL MB+) 50 ML IV (21:29)
[2023-10-02] MEDS: 0.9% Normal Saline (250mL Bag) 250 ML 15 ML IV (21:29)
[2023-10-02] MEDS: Citalopram 20 MG Tablet PO (21:30)
[2023-10-02] MEDS: APIXABAN 5 MG TABLET PO (21:30)
[2023-10-02] MEDS: Tamsulosin HCl 0.4 MG Capsule PO (21:30)
[2023-10-02] MEDS: Menthol/Lanolin/Calamine/Znox 113 GM Tube 1 APPLIC TOPICAL (22:12)
[2023-10-03 02:15] VITALS: BP 149/84; PULSE 57; RESP 16; TEMP 36.7; O2SAT 96
[2023-10-03 05:21] LABS: Absolute Lymphocyte Count 1.03 X10^3/uL (0.83-4.51); Absolute Neutrophil Count 4.9 X10^3/uL (2.0-7.7); Basophil# 0.03 X10^3/uL; Basophil% 0.4 % (0-1); Eosinophil# 0.21 X10^3/uL; Eosinophils% 3.1 % (0-5); Hematocrit 36.7 % (40-54); Hemoglobin 12.3 g/dL (13.0-16.5); Lymphocyte # 1.03 X10^3/ul (0.83-4.51); Lymphocyte % 15.4 % (19-41); Mean Corp Hgb Conc 33.5 g/dL (32-36); Mean Corpuscular Hgb 30.4 pg (27.0-32.0); Mean Corpuscular Volume 90.6 fL (80-94); Mean Platelet Vol. 10.1 fl (6.2-12.0); Monocyte# 0.52 X10^3/uL; Monocyte% 7.7 % (0-10); NRBC Flagged by Analyzer 0 % (0-5); Neutrophil % 73.1 % (47-70); Platelet Count 162 K/mm3 (150-450); RBC Distribution Width CV 14.8 % (11.6-14.6); RBC Distribution Width SD 49.4 fl (35.1-43.9); Red Blood Count 4.05 M/mm3 (4.6-6.2); White Blood Count 6.7 K/mm3 (4.4-11.0)
[2023-10-03] MEDS: Piperacil/Tazobactam 3.375 GM in 0.9% Normal Saline (50mL MB+) 50 ML IV ×3 (05:45→22:52)
[2023-10-03 05:49] LABS: AST(SGOT) 18 U/L (15-37); Alanine Aminotransfer ALT/SGPT 19 U/L (16-61); Albumin, Serum 3.5 g/dL (3.2-5.0); Alkaline Phosphatase 63 U/L (45-117); Anion Gap 5 (5-15); BUN 21 mg/dL (7-18); BUN/Creat Ratio 20.8 RATIO (10-20); Calcium,Total 8.8 mg/dL (8.5-10.1); Chloride 109 mmol/L (98-107); Creatinine, Serum 1.01 mg/dL (0.70-1.30); EST Glomerular Filtration Rate 76 mL/min (>60); Est Glom Filt Rate - Afr Amer 92 mL/min (>60); Estimated Creatinine Clearance 73.37 ml/min; Globulin 3.4 g/dL (2.2-4.2); Glucose 95 mg/dL (74-106); Magnesium 2.3 mg/dL (1.6-2.6); Phosphorus 2.9 mg/dL (2.5-4.9); Potassium 3.5 mmol/L (3.5-5.1); Protein, Total 6.9 g/dL (6.4-8.2); Sodium Level 140 mmol/L (136-145)
--- NOTE | 2023-10-03 08:05 | PN.HOSP_ITS ---
Reason for Visit Reason for Visit: Diagnoses Pseudomonas (aeruginosa) (mallei) (pseudomallei) as the cause of diseases classified elsewhere (10/02/23) Neuromuscular dysfunction of bladder, unspecified (10/02/23) Urinary tract infection, site not specified (10/02/23) Fracture of unspecified part of left clavicle, initial encounter for closed fracture (10/02/23) Personal history of other diseases of male genital organs (10/02/23) Subjective Subjective Feeling fair today, no acute complaints Objective Data Objective Data Vital Signs: Vital Signs Temp Pulse Resp BP Pulse Ox O2 Del Method 98.1 F 57 L 16 149/84 H 96 Room Air 10/03/23 02:15 10/03/23 02:15 10/03/23 02:15 10/03/23 02:15 10/03/23 02:15 10/03/23 02:15 Oxygen Delivery Method Room Air Weight: 105.687 kg Body Mass Index (BMI) 34.4 Intake & Output: Intake and Output for Last 24 Hours 10/01/23 10/02/23 10/03/23 23:59 23:59 23:59 Intake Total 820.25 / 820.25 50 / 50 Output Total 400 / 400 500 / 500 Balance 420.25 / 420.25 -450 / -450 Lab / Micro Data 10/03/23 04:40 10/03/23 04:40 Labs: Laboratory Results - last 24 hr 10/02/23 14:40: WBC 5.1, RBC 4.11 L, Hgb 12.0 L, Hct 37.0 L, MCV 90.0, MCH 29.2, MCHC 32.4, RDW Std Deviation 49.7 H, RDW Coeff of Donna 15.0 H, Plt Count 162, MPV 10.3, Immature Gran % (Auto) 0.200, Neut % (Auto) 73.6 H, Lymph % (Auto) 16.9 L, [place] % (Auto) 6.7, Eos % (Auto) 2.2, Baso % (Auto) 0.4, Absolute Neuts (auto) 3.8, Absolute Lymphs (auto) 0.86, Nucleated RBC % 0, Sodium 140, Potassium 4.0, Chloride 107, Carbon Dioxide 27.0, Anion Gap 6, BUN 26 H, Creatinine 1.09, Est GFR (MDRD) Af Amer 84, Est GFR (MDRD) Non-Af 70, BUN/Creatinine Ratio 23.9 H, G lucose 133 H, Lactic Acid 1.6, Calcium 8.9 10/02/23 15:10: Urine Color Yellow, Urine Clarity Cloudy, Urine pH 7.0, Ur Specific [place] 1.010, Urine Protein 30 H, Urine Glucose (UA) Normal, Urine Ketones Negative, Urine Occult Blood 150 H, Urine Nitrite Negative, Urine Bilirubin Negative, Urine Urobilinogen Normal, Ur Leukocyte Esterase 500 H, Urine RBC 0 SEEN, Urine WBC >100 SEEN, Ur Squamous Epith Cells 0-5 SEEN, Urine Bacteria 2+, Urine Mucus 0 SEEN 10/03/23 04:40: WBC 6.7, RBC 4.05 L, Hgb 12.3 L, Hct 36.7 L, MCV 90.6, MCH 30.4, MCHC 33.5, RDW Std Deviation 49.4 H, RDW Coeff of Donna 14.8 H, Plt Count 162, MPV 10.1, Immature Gran % (Auto) 0.300, Neut % (Auto) 73.1 H, Lymph % (Auto) 15.4 L, [place] % (Auto) 7.7, Eos % (Auto) 3.1, Baso % (Auto) 0.4, Absolute Neuts (auto) 4.9, Absolute Lymphs (auto) 1.03, Nucleated RBC % 0, Sodium 140, Potassium 3.5, Chloride 109 H, Carbon Dioxide 26.0, Anion Gap 5, BUN 21 H, Creatinine 1.01, Estim Creat Clear Calc 73.37, Est GFR (MDRD) Af Amer 92, Est GFR (MDRD) Non-Af 76, BUN/Creatinine Ratio 20.8 H, Glucose 95, Calcium 8.8, Phosphorus 2.9, Magnesium 2.3, Total Bilirubin 0.90, AST 18, ALT 19, Alkaline Phosphatase 63, Total Protein 6.9, Albumin 3.5, Globulin 3.4, Albumin/Globulin Ratio 1.0 Physical Exam Narrative General: Alert, oriented, no apparent distress HEENT: Atraumatic Eyes: extraocular movements grossly intact Neck: Supple Respiratory: normal respiratory effort Cardiovascular: No significant edema appreciated GI: nondistended Extremities: Sitting up in chair Neuro: History of spinal cord injury Psych: Cooperative Assessment & Plan Assessment/Plan (1) History of BPH: (2) Pseudomonas urinary tract infection: (3) Closed left clavicular fracture: (4) Neurogenic bladder: PLAN: Plan #Resistant Pseudomonas urinary tract infection -Cx is in Clinis[facility] and results have been printed out and placed on the hard chart -Zosyn started the emergency department and will continue on admission -Will likely need PICC line and home health care for IV antibiotics after discharge -Consult infectious disease for assistance with discharge planning and antibiotic usage -10/02: Patient on IV Zosyn, ID consult, patient will be evaluated tomorrow, will likely need home IV antibiotics so social work and case management consulted as well, may need PICC line pending final decision #Neurogenic bladder/history of BPH -Patient's caths him 4-5 times a day at home and he uses a condom catheter nightly -Nursing communication to straight cath every 4 hours while hospitalized and condom catheter at night for nights only -Condom Catheter will not be sufficient for 05/10 as he has retention and does not completely empty -Continue home Flomax -10/02: I's and O's, patient straight caths at home has been straight cath overnight #Generalized weakness #-PT/OT consult -Consult case management/social scientist for assistance with discharge planning -Patient will most likely need home health care for antibiotics at the very least at the time of discharge -10/02: PT/OT, history of spinal cord injury and uses wheelchair at baseline, case management and social work for discharge planning Chronic medical problems: #Left clavicular fracture -Patient is 3 weeks post fracture -Following at [facility]--> Sees SUMMER Damon -Thus far management is nonoperative -Will need careful manipulation of left upper extremity with transfers and mobility #PAF/SSS -Pacemaker in place--> is MR-compatible and was placed in 2016 -Continue outpatient pacemaker checks as scheduled -Continue home apixaban 5 mg p.o. twice daily -Continue home carvedilol 12.5 mg p.o. 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 -Treatment as above -Continue home gabapentin #Chronic constipation secondary to neurogenic bowel -Continue home bowel regimen -As needed medication available #History of DVT -Continue home apixaban #History of CVA/TIA -Continue apixaban -Occurred in June 2021 -Does not follow with neurology and does not desire to follow-up with neurology #Chronic bilateral lower extremity edema -Secondary to immobility from SCI #Depression -Continue home citalopram DVT prophylaxis -Continue home apixaban Time spent in the patient's overall evaluation,decision-making process, review of diagnostic data, adjustment of management, discussion with other providers, nursing nursing and ancillary staff involved in patient's care documentation, 30 minutes Charges/Coding Visit Charges Inpatient E&M: 07704 Subs Hosp L1
[2023-10-03 08:30] VITALS: BP 150/70; PULSE 80; RESP 18; TEMP 36.6; O2SAT 96
[2023-10-03] MEDS: Potassium Chloride Oral Tablet 10 MEQ PO (08:31)
[2023-10-03] MEDS: Carvedilol 12.5 MG Tablet PO ×2 (08:31→17:47)
[2023-10-03] MEDS: Gabapentin 600 MG Tablet PO ×2 (08:37→17:47)
[2023-10-03] MEDS: Menthol/Lanolin/Calamine/Znox 113 GM Tube 1 APPLIC TOPICAL ×2 (10:09→22:53)
[2023-10-03] MEDS: APIXABAN 5 MG TABLET PO ×2 (10:10→22:53)
[2023-10-03] MEDS: Lisinopril 20 MG Tablet PO (10:11)
[2023-10-03] MEDS: Ascorbic Acid 500 MG Tablet 1000 MG PO (11:50)
[2023-10-03 14:30] VITALS: BP 150/80; PULSE 67; RESP 18; TEMP 36.8; O2SAT 95
[2023-10-03] MEDS: Acetaminophen 325 MG Tablet 650 MG PO (17:59)
[2023-10-03 22:35] VITALS: BP 175/89; PULSE 62; RESP 18; TEMP 36.7; O2SAT 93
[2023-10-03 22:49] VITALS: BP 175/89; PULSE 62
[2023-10-03] MEDS: hydrALAZINE 20 MG/ML Vial 10 MG IV (22:49)
[2023-10-03] MEDS: 0.9% Saline Lock 10 ML Syringe IV (22:49)
[2023-10-03] MEDS: Citalopram 20 MG Tablet PO (22:53)
[2023-10-03] MEDS: Tamsulosin HCl 0.4 MG Capsule PO (22:53)
[2023-10-04] VITALS (9 sets, daily range): BP systolic 117–169; BP diastolic 56–87; PULSE 58–75; RESP 16–20; TEMP 36.5–36.9; O2SAT 94–98
[2023-10-04] MEDS: Piperacil/Tazobactam 3.375 GM in 0.9% Normal Saline (50mL MB+) 50 ML IV ×3 (05:09→21:21)
[2023-10-04] MEDS: 0.9% Saline Lock 10 ML Syringe IV ×2 (05:16→21:29)
[2023-10-04] MEDS: hydrALAZINE 20 MG/ML Vial 10 MG IV ×2 (05:16→21:28)
[2023-10-04 05:35] LABS: Hematocrit 37.3 % (40-54); Hemoglobin 12.2 g/dL (13.0-16.5); Mean Corp Hgb Conc 32.7 g/dL (32-36); Mean Corpuscular Hgb 29.6 pg (27.0-32.0); Mean Corpuscular Volume 90.5 fL (80-94); Mean Platelet Vol. 10.7 fl (6.2-12.0); Platelet Count 166 K/mm3 (150-450); RBC Distribution Width SD 49.7 fl (35.1-43.9); Red Blood Count 4.12 M/mm3 (4.6-6.2); White Blood Count 7.8 K/mm3 (4.4-11.0)
[2023-10-04 06:18] LABS: Anion Gap 8 (5-15); BUN 22 mg/dL (7-18); Calcium,Total 9.2 mg/dL (8.5-10.1); Chloride 110 mmol/L (98-107); Creatinine, Serum 1.16 mg/dL (0.70-1.30); EST Glomerular Filtration Rate 65 mL/min (>60); Est Glom Filt Rate - Afr Amer 79 mL/min (>60); Estimated Creatinine Clearance 63.89 ml/min; Glucose 96 mg/dL (74-106); Potassium 3.5 mmol/L (3.5-5.1); Sodium Level 142 mmol/L (136-145)
[2023-10-04] MEDS: Lisinopril 20 MG Tablet PO (08:47)
[2023-10-04] MEDS: Gabapentin 600 MG Tablet PO ×2 (08:47→16:52)
[2023-10-04] MEDS: Carvedilol 12.5 MG Tablet PO ×2 (08:47→16:52)
[2023-10-04] MEDS: Ascorbic Acid 500 MG Tablet 1000 MG PO (08:47)
[2023-10-04] MEDS: Potassium Chloride Oral Tablet 10 MEQ PO (08:48)
[2023-10-04] MEDS: APIXABAN 5 MG TABLET PO ×2 (08:48→21:22)
[2023-10-04] MEDS: Menthol/Lanolin/Calamine/Znox 113 GM Tube 1 APPLIC TOPICAL ×2 (08:48→21:22)
[2023-10-04] MEDS: Acetaminophen 325 MG Tablet 650 MG PO (08:54)
--- NOTE | 2023-10-04 09:40 | CASEMGMT ---
Addendum entered by Yumiko Lamb 10/04/23 12:50: PRUDENCIO HERMAN sent referral to [facility] for IV antibiotics. Addendum entered by Yumiko Lamb 10/04/23 11:09: PRUDENCIO HERMAN into pt room, provided list of local HHC agencies printed by Discharge Checking Clerk. Pt in the room, states pt was previously in TCU and is interested in possibly sending pt to TCU again. Reviewed options with pt and of HHC vs SNF. Pt also states concerned about cost of IV antibiotics. States a foundation helps family pay for Eliquis, the family pays for rest of meds out of pocket. Family to discuss options, will follow up with family later today. Original Note: PRUDENCIO HERMAN Assessment: Face to Face with pt for initial transition planning/care coordination assessment. PRUDENCIO HERMAN introduced self and role at [facility], pt voices understanding and consents to assessment. Pt is A&O x4 and answers all questions appropriately at this time. Pt sitting up in bed in no distress. Care providers, pharmacy, and demographics verified/updated. Admitting Dx: Resistant PSAG UTI PCP: Kisha Specialists: Gaudencio, Machinist Instructor; Urologist, Gonsalo. Preferred Pharmacy: [facility]: [facility] Suppliment Prescription Benefit: yes LNOK: , Son. Living Arrangements: Pt lives with in a 1 story home with a ramp to enter. ADLs: Pt assists with ADLs and IADLs. Transportation: Pt transports pt. DME: Wheelchair, walker, shower chair. HHC/SNF: Denies Hx of. Pt states no concerns with going home at time of dc. Discussed possibility of going home with IV antibiotics, provided list of local providers pt chose [facility]. Pt asked PRUDENCIO HERMAN to call and discuss HHC agencies. PRUDENCIO HERMAN called , discussed HHC vs SNF, she would like Pt to come home and states she is able to do IV antibiotics if necessary. Informed pt will put a list of HHC agencies in the room for her review and will stop in later today to get top three choices. CM to follow. Advised pt to ask CM if any further question/concerns/needs arise, voices understanding. Pt Goal: Home Plan: Home, will follow for HHC and IV antibiotic needs. Chantell FLANNERY CM
--- NOTE | 2023-10-04 10:07 | CASEMGMT ---
Discharge Planning A list of?HH providers including quality and resource use data and consistent with the patient's preferred geographic region, medical needs, and insurance network was created in CarePort Guide.? This list was provided to the RN VIRGIL. Araseli Bright, Discharge Planning Asst.
[2023-10-04 10:57] LABS: Mucous, Urine 0 SEEN /hpf (<or=2+); Squamous Epithelial Cells - UA 0 SEEN /hpf (0-5)
[2023-10-04 11:01] LABS: Color, Urine Yellow (Yellow); Glucose, Dipstick Normal (Normal); Ketone-Dipstick Negative (Negative); Leukocyte Esterase-Dipstick 500 /ul (Negative); Nitrite-Dipstick Negative (Negative); Occult Blood-Urine 25 /ul (Negative); Protein-Dipstick Negative (Negative); Urine Bilirubin Dipstick Negative (Negative); Urine Clarity Clear (Clear); Urine Urobilinogen Normal (Normal)
[2023-10-04 11:07] LABS: Red Blood Cells-Urine 0-5 SEEN /hpf (0-5); White Blood Cells 10-25 SEEN /hpf (0-5)
[2023-10-04 11:08] LABS: Amorphous Sediment 1+; Bacteria 1+ /hpf (None Seen)
--- NOTE | 2023-10-04 13:48 | CON.PCM.ID_ITS ---
Assessment & Plan Assessment/Plan (1) Neurogenic bladder: (2) Acute UTI: PLAN: PsA uti, reviewed outside ucx. Cont zosyn, will order midline and write for 5 more days iv abx. Will follow, thank you HPI Consult Data Date of Consult: 10/04/23 HPI Narrative Reason for Consultation: uti HPI Narrative: DANNY AQUINO, is a 78 M with h/o paraplegia, self caths at home, had one week of low fever, fatigue, not feeling well. Saw PCP, started macrobid without improvement. Taken to ED, started on zosyn to cover ucx with PsA. Feeling a little better, at bedside provided additional history. No abd pain, no flank pain. Full ROS performed and neg except as noted above. [facility] Medical History Vision loss of right eye Anxiety Prostatic hypertrophy TIA (transient ischemic attack) Neurogenic bowel Sick sinus syndrome Neuropathy 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 Depression Hypertension Atrial fibrillation Anterior communicating artery aneurysm Atrial fibrillation History of DVT (deep vein thrombosis) AAA (abdominal aortic aneurysm) without rupture Sick sinus syndrome Family history of hypertension History of spinal cord injury Paraplegia Premature ventricular contractions BPH (benign prostatic hypertrophy) Depression Cervical spinal stenosis Spinal cord injury Neurogenic bladder Degenerative joint disease (DJD) of lumbar spine Anemia Central cord syndrome Subluxation of C6-C7 cervical vertebrae 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.9) Home Medications ?Medication ?Instructions ?Recorded ?Last Taken ?Type lisinopril 20 mg tablet 20 mg PO DAILY blood pressure 06/24/15 03/28/19 History ascorbic acid (vitamin C) 500 mg 1,000 mg PO LUNCH supplement 08/17/21 Unknown History tablet carvedilol 12.5 mg tablet 12.5 mg PO Q12H BP 30 days #60 tabs 09/03/21 Unknown Rx tamsulosin 0.4 mg capsule 0.4 mg PO QHS Urine retention 30 09/03/21 Unknown Rx days #30 caps citalopram 20 mg tablet 20 mg PO QHS depression 12/04/21 Unknown History gabapentin 300 mg capsule 600 mg PO BID Nerve pain 12/04/21 Unknown History potassium chloride 10 mEq 10 meq PO DAILY supplement 05/19/22 Unknown History tablet,extended release(part/cryst) nifedipine 30 mg tablet,extended 30 mg PO DAILY BP 11/04/22 10/02/23 History release apixaban 5 mg tablet (Eliquis) 5 mg PO BID blood thinner #180 tabs 02/02/23 Unknown Rx piperacillin-tazobactam 3.375 3.375 g (56.25 mL) IV Q8H 5 days 10/04/23 Unknown Rx gram/50 mL dextrose(iso-os) IV piggyback (Zosyn) Allergy/AdvReac Type Severity Reaction Status Date / Time ceftriaxone Allergy Rash Verified 10/02/23 13:58 ciprofloxacin (From Cipro) Allergy Hives Verified 10/02/23 13:58 sulfamethoxazole (From Allergy PT UNSURE Verified 10/02/23 13:58 Bactrim) OF REACTION trimethoprim (From Bactrim) Allergy PT UNSURE Verified 10/02/23 13:58 OF REACTION Family History Mother Breast cancer Cancer Brain cancer Sister Diabetes Hypertension CHF (congestive heart failure) Kidney disease Sister CHF (congestive heart failure) Cardiac defibrillator in situ Other Family history of hypertension Surgical History History of neck surgery History of permanent cardiac pacemaker placement S/P cervical spinal fusion Social History household members: spouse Smoking Status: Never smoker alcohol intake: current alcohol intake frequency: holidays/special occasions only Alcohol type: wine substance use type: does not use caffeine: Yes Type: coffee Number of servings: 1 what type of physical activity do you participate in: other details: Health point frequency: 1-2 times per week duration: 45-60 minutes/day seatbelt use: always do you feel safe at home: Yes Physical Exam Const alert and no apparent distress Constitutional Narrative: oriented x1 General Appearance: cooperative HEENT normocephalic and head/scalp atraumatic Eyes PERRL and EOMs intact bilaterally Neck supple and No nodes Resp normal air movement and clear to auscultation bilaterally Cardio regular rate and regular rhythm GI soft to palpation, non-tender and non-distended Extremity General Extremity: edema Skin no rashes or lesions noted Neuro CN's II-XII intact bilaterally Lab / Micro Data Attestation: I reviewed the patient's lab results. 10/04/23 04:09 10/04/23 04:09 Labs: Laboratory Results - last 24 hr 10/04/23 04:09: WBC 7.8, RBC 4.12 L, Hgb 12.2 L, Hct 37.3 L, MCV 90.5, MCH 29.6, MCHC 32.7, RDW Std Deviation 49.7 H, RDW Coeff of Donna 15.0 H, Plt Count 166, MPV 10.7, Sodium 142, Potassium 3.5, Chloride 110 H, Carbon Dioxide 24.0, Anion Gap 8, BUN 22 H, Creatinine 1.16, Estim Creat Clear Calc 63.89, Est GFR (MDRD) Af Amer 79, Est GFR (MDRD) Non-Af 65, BUN/Creatinine Ratio 19.0, Glucose 96, Calcium 9.2 10/04/23 10:47: Urine Color Yellow, Urine Clarity Clear, Urine pH 7.0, Ur Specific [place] 1.010, Urine Protein Negative, Urine Glucose (UA) Normal, Urine Ketones Negative, Urine Occult Blood 25 H, Urine Nitrite Negative, Urine Bilirubin Negative, Urine Urobilinogen Normal, Ur Leukocyte Esterase 500 H, Urine RBC 0-5 SEEN, Urine WBC 10-25 SEEN, Ur Squamous Epith Cells 0 SEEN, Amorphous Sediment 1+, Urine Bacteria 1+, Urine Mucus 0 SEEN Micro: Microbiology 10/02/23 14:40 Blood Culture (Wb) - Anticubital Left Blood Culture - Preliminary No growth in 48 hours.
--- NOTE | 2023-10-04 14:35 | CASEMGMT ---
Addendum entered by Yumiko Lamb 10/04/23 15:23: [facility] notified RN VIRGIL cost for IV antibiotics is $452.02. Notified pt and pt of cost, agreeable to paying this cost and would like to move forward with [facility]. Original Note: PRUDENCIO HERMAN into pt room, pt selected [facility] as agency of choice. Pt and family still discussing TCU option. Called [facility] to see if they are willing to accept if Pt chooses HHC. Waiting to hear back.
--- NOTE | 2023-10-04 14:51 | PCM.PN.HOSP ---
Reason for Visit Reason for Visit: Diagnoses Pseudomonas (aeruginosa) (mallei) (pseudomallei) as the cause of diseases classified elsewhere (10/02/23) Neuromuscular dysfunction of bladder, unspecified (10/02/23) Urinary tract infection, site not specified (10/02/23) Fracture of unspecified part of left clavicle, initial encounter for closed fracture (10/02/23) Personal history of other diseases of male genital organs (10/02/23) Objective Data Objective Data Vital Signs: Vital Signs Temp Pulse Resp BP Pulse Ox O2 Del Method 97.8 F 63 16 120/56 L 98 Room Air 10/04/23 14:21 10/04/23 14:21 10/04/23 14:21 10/04/23 14:21 10/04/23 14:21 10/04/23 14:21 Oxygen Delivery Method Room Air Weight: 233 lb Body Mass Index (BMI) 34.4 Intake & Output: Intake and Output for Last 24 Hours 10/02/23 10/03/23 10/04/23 23:59 23:59 23:59 Intake Total 820.25 / 820.25 2050 / 2050 800 / 800 Output Total 400 / 400 1775 / 1775 1700 / 1700 Balance 420.25 / 420.25 275 / 275 -900 / -900 Lab / Micro Data 10/04/23 04:09 10/04/23 04:09 Labs: Laboratory Results - last 24 hr 10/04/23 04:09: WBC 7.8, RBC 4.12 L, Hgb 12.2 L, Hct 37.3 L, MCV 90.5, MCH 29.6, MCHC 32.7, RDW Std Deviation 49.7 H, RDW Coeff of Donna 15.0 H, Plt Count 166, MPV 10.7, Sodium 142, Potassium 3.5, Chloride 110 H, Carbon Dioxide 24.0, Anion Gap 8, BUN 22 H, Creatinine 1.16, Estim Creat Clear Calc 63.89, Est GFR (MDRD) Af Amer 79, Est GFR (MDRD) Non-Af 65, BUN/Creatinine Ratio 19.0, Glucose 96, Calcium 9.2 10/04/23 10:47: Urine Color Yellow, Urine Clarity Clear, Urine pH 7.0, Ur Specific [place] 1.010, Urine Protein Negative, Urine Glucose (UA) Normal, Urine Ketones Negative, Urine Occult Blood 25 H, Urine Nitrite Negative, Urine Bilirubin Negative, Urine Urobilinogen Normal, Ur Leukocyte Esterase 500 H, Urine RBC 0-5 SEEN, Urine WBC 10-25 SEEN, Ur Squamous Epith Cells 0 SEEN, Amorphous Sediment 1+, Urine Bacteria 1+, Urine Mucus 0 SEEN Micro: Microbiology 10/02/23 14:40 Blood Culture (Wb) - Anticubital Left Blood Culture - Preliminary No growth in 48 hours. Physical Exam Narrative Seen and examined. Patient has prior history of stroke with speech impairment/language deficit, neurogenic bladder, uses straight cath history of resistant UTI, denies dysuria. Physical exam General: Alert, Oriented x3, Cooperative HEENT: Atraumatic, PERRLA, EOMI, Normocephalic Oral: No Gingival or Mucosal Lesions/ Ulcerations Neck: Supple, No JVD, Negative Carotid Bruits Chest wall/Lungs: Air entry diminished in bilateral lung bases. No crepitation/rhonchi Cardiovascular: Regular rate, Regular Rhythm, Normal S1, Normal S2, No M/G/R Abdomen: Bowel Sounds Present, Soft, Non Tender, Non-Distended : Mejía catheter. No dysuria. No renal angle tenderness. No suprapubic tenderness. Extremities: No edema, Capillary Refill Less than 3 Seconds Skin: No rashes, No breakdown Musculoskeletal: No Tenderness to Palpation of Joints or Extremities. Weakness of lower legs 4/5 knees and hips joint Neurological: Cranial nerves II-XII grossly intact, DTR 2+/4. Residual speech deficit/language deficit Psych/Mental Status: Flat affect. Assessment & Plan Assessment/Plan (1) Pseudomonas urinary tract infection: (2) Closed left clavicular fracture: (3) Neurogenic bladder: PLAN: Plan This is a 78-year-old gentleman was admitted with running low-grade fever, urine dark and outpatient urine culture which came positive for Pseudomonas and was admitted for IV antibiotics. History of recurrent and frequent UTI. #Resistant Pseudomonas urinary tract infection -Urine Cx is in Clinisync and results have been printed out and placed on the hard chart -Zosyn started the emergency department and continued. ID consulted. Blood cultures negative for 48 hours. Repeat urine culture pending. Probably will need midline and 5 days of IV antibiotics. #Neurogenic bladder/history of BPH -Patient's caths him 4-5 times a day at home and he uses a condom catheter nightly. Initially patient had a straight cath but afterwards had Mejía catheter to completely empty the bladder. -Continue home Flomax #Generalized weakness #-PT/OT consult -Consult case management/health and social care teacher for assistance with discharge planning -Patient will most likely need home health care for antibiotics at the very least at the time of discharge Discussed with the case management rn in interdisciplinary rounds Chronic medical problems: #Left clavicular fracture -Patient is 3 weeks post fracture -Following at [facility]--> Sees SUMMER Damon -Thus far management is nonoperative -Patient needs careful manipulation of left upper extremity with transfers and mobility #PAF/SSS -Pacemaker in place--> is MR-compatible and was placed in 2015 -Continue outpatient pacemaker checks as scheduled -Continue home apixaban 5 mg p.o. twice daily -Continue home carvedilol 12.5 mg p.o. 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
[2023-10-04] MEDS: Tamsulosin HCl 0.4 MG Capsule PO (21:22)
[2023-10-04] MEDS: Citalopram 20 MG Tablet PO (21:22)
[2023-10-05 05:00] VITALS: BP 154/86; PULSE 62; RESP 18; TEMP 36.6; O2SAT 96
[2023-10-05] MEDS: Piperacil/Tazobactam 3.375 GM in 0.9% Normal Saline (50mL MB+) 50 ML IV ×2 (05:13→13:29)
[2023-10-05 06:49] LABS: Hematocrit 37.4 % (40-54); Hemoglobin 12.1 g/dL (13.0-16.5); Mean Corp Hgb Conc 32.4 g/dL (32-36); Mean Corpuscular Hgb 29.3 pg (27.0-32.0); Mean Corpuscular Volume 90.6 fL (80-94); Mean Platelet Vol. 10.1 fl (6.2-12.0); Platelet Count 158 K/mm3 (150-450); RBC Distribution Width CV 15.3 % (11.6-14.6); RBC Distribution Width SD 51.4 fl (35.1-43.9); Red Blood Count 4.13 M/mm3 (4.6-6.2); White Blood Count 7.4 K/mm3 (4.4-11.0)
[2023-10-05 07:17] LABS: Anion Gap 6 (5-15); BUN 24 mg/dL (7-18); BUN/Creat Ratio 18.6 RATIO (10-20); Chloride 110 mmol/L (98-107); Creatinine, Serum 1.29 mg/dL (0.70-1.30); EST Glomerular Filtration Rate 57 mL/min (>60); Est Glom Filt Rate - Afr Amer 69 mL/min (>60); Estimated Creatinine Clearance 57.45 ml/min; Glucose 97 mg/dL (74-106); Potassium 3.6 mmol/L (3.5-5.1); Sodium Level 141 mmol/L (136-145)
[2023-10-05 07:34] VITALS: O2SAT 99
[2023-10-05] MEDS: Carvedilol 12.5 MG Tablet PO ×2 (08:10→16:22)
[2023-10-05] MEDS: Potassium Chloride Oral Tablet 10 MEQ PO (08:10)
[2023-10-05] MEDS: Gabapentin 600 MG Tablet PO ×2 (08:11→16:22)
[2023-10-05 08:13] VITALS: BP 148/76; PULSE 62; RESP 16; TEMP 36.4; O2SAT 97
[2023-10-05] MEDS: Menthol/Lanolin/Calamine/Znox 113 GM Tube 1 APPLIC TOPICAL (10:20)
[2023-10-05] MEDS: APIXABAN 5 MG TABLET PO (10:20)
[2023-10-05] MEDS: Lisinopril 20 MG Tablet PO (10:21)
--- NOTE | 2023-10-05 10:35 | PCM.PN.ID ---
Physical Exam Narrative Feeling better, no fever, no n/v/d Const alert and no apparent distress General Appearance: cooperative Resp normal air movement and clear to auscultation bilaterally Cardio regular rate and regular rhythm GI soft to palpation, non-tender and non-distended Skin no rashes or lesions noted ID ID: Route of nutrition/ use of supplements: [] Nutritional Intake: [] IV Site: [] Mejía Catheter: [] Assessment & Plan Assessment/Plan (1) Neurogenic bladder: (2) Acute UTI: PLAN: PsA uti, reviewed outside ucx. Cont zosyn, pending midline and wrote for 5 more days iv abx. Will follow
--- NOTE | 2023-10-05 12:10 | CASEMGMT ---
Addendum entered by Saskia Bruce 10/05/23 15:54: TC to [facility], spoke with Rea who states med will run in over 1/2 hour. PRUDENCIO HERMAN into pt room, pt is aware as well as . Answered questions at this time. Pt and deny any further questions. Addendum entered by Saskia Bruce 10/05/23 13:59: Received confirmation that pt med will be in a minibag. PRUDENCIO HERMAN into pt room, notified pt and . Pt states nurse just reviewed the IV with her as she hung the dose. Pt states she feels she can do this at home. She states her dil may be able to assist. Midline insertion report sent to [facility] via [email or web address]. Requested from [facility] the duration of infusion per pt request. Addendum entered by Saskia Bruce 10/05/23 12:49: PRUDENCIO HERMAN spoke with hospitalist who is aware that pt will be ready for dc after 2pm dose. PRUDENCIO HERMAN into pt room to make pt and aware of arrangements being made. Pt with hesitation. She is aware HH has been ordered and will come out until she is comfortable performing on her own. Pt states he wants to go home. Message sent to [facility] to verify how the med will be dispensed. Sent dc instructions via careport to I at this time. Original Note: Per ID, ok for pt to skip last PM dose and HH to start in the AM.
--- NOTE | 2023-10-05 12:15 | DCINST_ITS ---
Discharge Instructions Diet Discharge Diet: Low fat / Low cholesterol and 2000 mg Sodium Diet Activity Discharge Activity: Return to Normal Activity Weight Bearing Status: Weight bearing as tolerated Dressing / Incision Call your doctor if you observe: Fever of 101 or Higher, Coldness, Increased Pain, Numbness or Tingling, Change in Color, Inability to urinate, Inability to have a bowel movement, Shortness of breath, Dizziness, Fainting spells, Swelling in the ankles, Chest pain, Prolonged hiccupping, Increased palpitations (irregular heartbeat) and Calf discomfort Follow Up Care When: IN 2 WEEKS Test Results: Test results from this visit will be discussed in further detail at your follow- up appointment, if applicable. Discharge Plan Admission Admit Date/Time: 10/02/23 15:58 Primary Reason for Your Visit: Pseudomonas or UTI Attending Provider: Justen Pompa Primary Care Provider: Tunde Beard Consulting Providers: Allison Edwards; Tunde Stuart; Heike Flynn Discharge Orders/Prescriptions Prescriptions: New Zosyn in dextrose (iso-osm) 3.375 gram/50 mL piggyback 3.375 g IV Q8H 5 Days Rx Instructions: stop date 10/09/23. Dx: pseudomonas infection Continued citalopram 20 mg tablet 20 mg PO QHS gabapentin 300 mg capsule 600 mg PO BID potassium chloride 10 mEq tablet,ER particles/crystals 10 meq PO DAILY nifedipine 30 mg tablet extended release 30 mg PO DAILY Patient Comments: pt states she cuts a pill in half. lisinopril 20 MG tablet 20 mg PO DAILY Patient Comments: BLOOD PRESSURE ascorbic acid (vitamin C) 500 mg tablet 1,000 mg PO LUNCH carvedilol 12.5 mg Tablet 12.5 mg PO Q12H 30 Days Qty: 60 0RF tamsulosin 0.4 mg Capsule 0.4 mg PO QHS 30 Days Qty: 30 0RF Eliquis 5 mg tablet 5 mg PO BID Qty: 180 4RF Referrals / Follow Up: Tunde Beard DO [Primary Care Provider] - Disposition Disposition (needs filled in before D/C Order can be placed): Home Health Service
[2023-10-05] MEDS: Ascorbic Acid 500 MG Tablet 1000 MG PO (12:22)
--- NOTE | 2023-10-05 12:22 | DS.PCM_ITS ---
Providers Date of Admission: 10/02/23 Date of Discharge: 10/05/23 Primary Care Physician: Dr. Tunde Beard, Consultations 10/02/23 16:41 Consult: Infectious Disease Routine Consulting Provider: Tunde Stuart Reason for Consult: Complicated PsAg UTI EMERGENT Consult: No MD Notified: Yes Date Notified: 10/04/23 Time Notified: 06:02 Method of Notification: Answering Service Reason For Visit: RESISTANT PSAG UTI Diagnosis Discharge Diagnosis (1) Neurogenic bladder: Status: Acute Code(s): N31.9 - Neuromuscular dysfunction of bladder, unspecified (2) Acute UTI: Status: Acute Code(s): N39.0 - Urinary tract infection, site not specified Plan This is a 78-year-old gentleman was admitted with running low-grade fever, urine dark and outpatient urine culture which came positive for Pseudomonas and was admitted for IV antibiotics. History of recurrent and frequent UTI. #Resistant Pseudomonas urinary tract infection -Urine Cx is in [facility] and results have been printed out and placed on the hard chart -Zosyn started the emergency department and continued. ID consulted. Blood cultures negative for 48 hours. Repeat urine culture pending. Probably will need midline and 5 days of IV antibiotics. 10/04: Repeat urine cultures with gram-negative irineo less than 1000 but first outside culture was positive for Pseudomonas therefore patient discharged on IV Zosyn. Prescription given by ID. Discharged home with home health #Neurogenic bladder/history of BPH -Patient's caths him 4-5 times a day at home and he uses a condom catheter nightly. Initially patient had a straight cath but afterwards had Mejía catheter to completely empty the bladder. -Continue home Flomax 10/04 continue straight cath every 4 hours. 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 twice daily -Continue home carvedilol 12.5 mg p.o. 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 Discharge follow-up instructions completed. Discharge process discussed with the patient and all questions were answered to patient's satisfaction. Follow with PCP in 1 to 2 weeks Total time spent, exact 35 minutes on discharge meds reconciliation, examination, coordination of care with nurses and ancillary staff, review of imaging and blood test and discussion with the patient on follow-up instructions. Medications at Discharge Home Medications lisinopril 20 mg tablet 20 mg PO DAILY blood pressure 06/24/15 ascorbic acid (vitamin C) 500 mg tablet 1,000 mg PO LUNCH supplement 08/17/21 carvedilol 12.5 mg tablet 12.5 mg PO Q12H BP 30 days #60 tabs 09/03/21 tamsulosin 0.4 mg capsule 0.4 mg PO QHS Urine retention 30 days #30 caps 09/03/21 citalopram 20 mg tablet 20 mg PO QHS depression 12/04/21 gabapentin 300 mg capsule 600 mg PO BID Nerve pain 12/04/21 potassium chloride 10 mEq tablet,extended release(part/cryst) 10 meq PO DAILY supplement 05/19/22 nifedipine 30 mg tablet,extended release 30 mg PO DAILY BP 11/04/22 apixaban 5 mg tablet (Eliquis) 5 mg PO BID blood thinner #180 tabs 02/02/23 piperacillin-tazobactam 3.375 gram/50 mL dextrose(iso-os) IV piggyback (Zosyn) 3.375 g (56.25 mL) IV Q8H 5 days 10/04/23 Physical Exam Narrative Seen and examined. No fever. No acute issues. Patient has prior history of stroke with speech impairment/language deficit, neurogenic bladder, uses straight cath history of resistant UTI, denies dysuria. Physical exam General: Alert, Oriented x3, Cooperative HEENT: Atraumatic, PERRLA, EOMI, Normocephalic Oral: No Gingival or Mucosal Lesions/ Ulcerations Neck: Supple, No JVD, Negative Carotid Bruits Chest wall/Lungs: Air entry diminished in bilateral lung bases. No crepitation/rhonchi Cardiovascular: Regular rate, Regular Rhythm, Normal S1, Normal S2, No M/G/R Abdomen: Bowel Sounds Present, Soft, Non Tender, Non-Distended : Mejía catheter. No dysuria. No renal angle tenderness. No suprapubic tenderness. Extremities: No edema, Capillary Refill Less than 3 Seconds Skin: No rashes, No breakdown Musculoskeletal: No Tenderness to Palpation of Joints or Extremities. Weakness of lower legs 4/5 knees and hips joint Neurological: Cranial nerves II-XII grossly intact, DTR 2+/4. Residual speech deficit/language deficit Psych/Mental Status: Flat affect. Weight / BMI Weight Weight: 233 lb Body Mass Index (BMI) 34.4 ABG / Lab / Microbiology Data 10/05/23 06:25 10/05/23 06:25 Laboratory: Laboratory Results - last 24 hr 10/05/23 06:25: WBC 7.4, RBC 4.13 L, Hgb 12.1 L, Hct 37.4 L, MCV 90.6, MCH 29.3, MCHC 32.4, RDW Std Deviation 51.4 H, RDW Coeff of Donna 15.3 H, Plt Count 158, MPV 10.1, Sodium 141, Potassium 3.6, Chloride 110 H, Carbon Dioxide 25.0, Anion Gap 6, BUN 24 H, Creatinine 1.29, Estim Creat Clear Calc 57.45, Est GFR (MDRD) Af Amer 69, Est GFR (MDRD) Non-Af 57 L, BUN/Creatinine Ratio 18.6, Glucose 97, Calcium 9.0 Microbiology: Microbiology 10/04/23 10:47 Urine Catheter - Catheter Urine Culture - Preliminary Gram negative irineo 10/02/23 14:40 Blood Culture (Wb) - Anticubital Left Blood Culture - Preliminary No growth in 48 hours. D/C Instructions Discharge Diet: Low fat / Low cholesterol and 2000 mg Sodium Diet Weight Bearing Status: Weight bearing as tolerated Call your doctor if you observe: Fever of 101 or Higher, Coldness, Increased Pain, Numbness or Tingling, Change in Color, Inability to urinate, Inability to have a bowel movement, Shortness of breath, Dizziness, Fainting spells, Swelling in the ankles, Chest pain, Prolonged hiccupping, Increased palpitations (irregular heartbeat) and Calf discomfort When: IN 2 WEEKS Meaningful Use Info Meaningful Use Meaningful Use Diagnoses (Choose all that apply): None applicable Ischemic Stroke Statin Dosing Therapy Reference: STATIN DOSE THERAPY REFERENCE: * Patients > 75 years receive moderate or high dose statin therapy. * Patients 75 years or YOUNGER should receive HIGH intensity statin dose unless contraindicated. You will be required to document reason for non-treatment if statin daily dose does not meet guidelines. HIGH DOSE STATIN THERAPY DAILY Atorvastatin > than or = to 40 mg Rosuvastatin > than or = to 20 mg Amlodipine + Atorvastatin > than or = to 2.5/40 mg Ezetimibe + Simvastatin 10/80 mg Simvastatin 80mg Discharge Plan Admission Admit Date/Time: 10/02/23 15:58 Primary Reason for Your Visit: Pseudomonas or UTI Attending Provider: Justen Pompa Primary Care Provider: Tunde Beard Consulting Providers: Allison Edwards; Tunde Stuart; Heike Flynn Discharge Orders/Prescriptions Prescriptions: New Zosyn in dextrose (iso-osm) 3.375 gram/50 mL piggyback 3.375 g IV Q8H 5 Days Rx Instructions: stop date 10/09/23. Dx: pseudomonas infection Continued citalopram 20 mg tablet 20 mg PO QHS gabapentin 300 mg capsule 600 mg PO BID potassium chloride 10 mEq tablet,ER particles/crystals 10 meq PO DAILY nifedipine 30 mg tablet extended release 30 mg PO DAILY Patient Comments: pt states she cuts a pill in half. lisinopril 20 MG tablet 20 mg PO DAILY Patient Comments: BLOOD PRESSURE ascorbic acid (vitamin C) 500 mg tablet 1,000 mg PO LUNCH carvedilol 12.5 mg Tablet 12.5 mg PO Q12H 30 Days Qty: 60 0RF tamsulosin 0.4 mg Capsule 0.4 mg PO QHS 30 Days Qty: 30 0RF Eliquis 5 mg tablet 5 mg PO BID Qty: 180 4RF Referrals / Follow Up: Tunde Beard DO [Primary Care Provider] - Disposition Disposition (needs filled in before D/C Order can be placed): Home Health Service Charges/Coding Visit Charges Inpatient E&M: 63886 Disch Hosp >30min
--- NOTE | 2023-10-05 13:03 | PHA.DC.MR.R ---
Pharmacy [place] Med Reconciliation Pharmacy Service has performed discharge medication reconciliation for this patient. The patient's discharge medication list was reviewed for discrepancies and discrepancies were resolved. Medications at Discharge Home Medications lisinopril 20 mg tablet 20 mg PO DAILY blood pressure 06/24/15 ascorbic acid (vitamin C) 500 mg tablet 1,000 mg PO LUNCH supplement 08/17/21 carvedilol 12.5 mg tablet 12.5 mg PO Q12H BP 30 days #60 tabs 09/03/21 tamsulosin 0.4 mg capsule 0.4 mg PO QHS Urine retention 30 days #30 caps 09/03/21 citalopram 20 mg tablet 20 mg PO QHS depression 12/04/21 gabapentin 300 mg capsule 600 mg PO BID Nerve pain 12/04/21 potassium chloride 10 mEq tablet,extended release(part/cryst) 10 meq PO DAILY supplement 05/19/22 nifedipine 30 mg tablet,extended release 30 mg PO DAILY BP 11/04/22 apixaban 5 mg tablet (Eliquis) 5 mg PO BID blood thinner #180 tabs 02/02/23 piperacillin-tazobactam 3.375 gram/50 mL dextrose(iso-os) IV piggyback (Zosyn) 3.375 g (56.25 mL) IV Q8H 5 days 10/04/23
[2023-10-05] MEDS: 0.9% Normal Saline (250mL Bag) 250 ML 15 ML IV (13:29)
[2023-10-05] MEDS: 0.9% Saline Lock 10 ML Syringe IV ×2 (13:29→17:57)
[2023-10-05 13:32] VITALS: BP 143/73; PULSE 69; RESP 18; TEMP 37.1; O2SAT 94
--- NOTE | 2023-10-05 13:36 | PCM.OP.PRO ---
Procedure Report Date of Procedure: 10/05/23 Assessment & Plan Assessment/Plan (1) Pseudomonas urinary tract infection: PLAN: Midline insertion in right brachial: Patient identity was verified with two patient identifiers. Hands were sanitized. The patient was positioned supine with right arm at 90 degrees. The patient's upper arm vasculature was assessed using ultrasound, and the right brachial vein was externally marked. An external measurement was obtained of 12 cm. Cap, mask, and prep gloves were donned. The underdrape was placed under the patient's arm. The site was prepped with chlorhexidine, and tourniquet was loosely applied. Prep gloves were discarded, and hands were sanitized. The sterile kit was opened with additional supplies dropped in. Sterile gown and gloves were donned, and the patient was draped. The sterile kit was assembled with all needle, introducer, connector, and catheter flushed with sterile normal saline. The marked site of insertion was anesthetized with 1% lidocaine. Patient tolerated well. The right brachial vein was then accessed using ultrasound guidance and guidewire was inserted to safety erik. The tourniquet was released. The access needle was removed while securing the guidewire in place. The site was again anesthetized with 1% lidocaine, prior to insertion of introducer sheath and dilator. Patient tolerated well. The catheter was trimmed to a length of 12 cm, and again flushed with sterile normal saline. The catheter was then inserted through the introducer sheath, slowly. There was no resistance on insertion. The introducer sheath was retracted and peeled away, incrementally, while keeping the catheter secured. The catheter was fully inserted leaving 0 cm external. Blood return was verified and flushed needless connector was attached. The midline was flushed with sterile normal saline in a pulsatile fashion and clamped. Total sterile flushes used for the insertion was to 10 ml syringes, one from the kit. Finally, the insertion site was cleaned with chlorhexidine, and the catheter was secured using a StatLock. The site was covered with a Tegaderm CHG Dressing. Baseline arm circumference was obtained at the insertion site and measured 32 cm. The charge nurse is aware that the midline is ready for use. REF: [id number] LOT: [id number] Procedures Radiology Radiology Access Procedures: MIDL
[2023-10-05 16:19] VITALS: BP 143/66; PULSE 62; RESP 18; TEMP 36.6; O2SAT 97
--- NOTE | 2023-10-07 12:48 | CASEMGMT ---
PRUDENCIO HERMAN DC TC: Attempted to reach pt via tc, no answer and unable to leave a message.
== END 2023-10-05 18:12 | disposition home health service (06) | DRG 698 ==
LOC: ED 16:00 → MS3 16:05
PROVIDERS: Internal Medicine; Admitting Provider Internal Medicine; Emergency Provider Emergency Medicine; PCP Preventive Medicine Occupational Medicine; Visit Provider Internal Medicine
DX: T83.518A Infection and inflammatory reaction due to other urinary catheter, initial encounter (principal); G82.54 Quadriplegia, C5-C7 incomplete; N39.0 Urinary tract infection, site not specified; I49.5 Sick sinus syndrome; I48.0 Paroxysmal atrial fibrillation; I10 Essential (primary) hypertension; F32.A Depression, unspecified; I69.328 Other speech and language deficits following cerebral infarction; S42.002A Fracture of unspecified part of left clavicle, initial encounter for closed fracture; K59.09 Other constipation; X58.XXXA Exposure to other specified factors, initial encounter; N40.1 Benign prostatic hyperplasia with lower urinary tract symptoms; R33.8 Other retention of urine; N31.9 Neuromuscular dysfunction of bladder, unspecified; B96.5 Pseudomonas (aeruginosa) (mallei) (pseudomallei) as the cause of diseases classified elsewhere; Z95.0 Presence of cardiac pacemaker; Z79.01 Long term (current) use of anticoagulants; Z79.899 Other long term (current) drug therapy; Z87.828 Personal history of other (healed) physical injury and trauma; Z86.718 Personal history of other venous thrombosis and embolism
CPT/HCPCS: 36415; 80048; 80053; 81001; 83605; 83735; 84100; 85025; 85027; 87040; 87077; 87086; 87088; 87184; 87186; 94668; 97162; 97166; 97530; 97535; 97802; 99252; 99284; J7030; J7050; P9612; A4216; G0463

== ENCOUNTER 2023-11-22 18:13 | Emergency (ER) | payer MEDICARE, OTHER, SELFPAY ==
[2023-11-22 18:15] VITALS: BP 171/88; PULSE 58; RESP 16; TEMP 36.7; O2SAT 98
== END 2023-11-22 18:48 | disposition left against medical advice (07) ==
LOC: ED 19:23
PROVIDERS: PCP Preventive Medicine Occupational Medicine
DX: R50.9 Fever, unspecified (principal)

== ENCOUNTER 2024-02-01 13:30 | Outpatient (RCR) | payer MEDICARE, OTHER, SELFPAY ==
--- NOTE | 2023-08-17 17:19 | HP.SP.REEV ---
Visit History Visit Info Date of Eval: 09/30/21 Visit: 1 Insurance Date Limit: 03/14/24 Church Musician: LAURA Nixon Attending Doctor: Referring Doctor: Reason for Referral: STROKE, INCOMPLETE QUADRIPALEGIC. RX HERE Smoking Status: Never smoker Diagnosis Diagnosis: cva; expressive and receptive aphasia Pain Is pain an issue with your current prescribed condition?: No Personal Preferred language: [place] Patient Allergies Allergies Allergies: Allergies ceftriaxone Allergy (Verified 05/04/23 11:39) Rash ciprofloxacin (From Cipro) Allergy (Verified 05/04/23 11:39) Hives sulfamethoxazole (From Bactrim) Allergy (Verified 05/04/23 11:39) PT UNSURE OF REACTION trimethoprim (From Bactrim) Allergy (Verified 05/04/23 11:39) PT UNSURE OF REACTION Previous/Current Goals Goals 1-5 Previous Goal #1: Patient will describe common objects with at 5/6 details (use, action, group, association, location, description), complete [employer]UDY TEACHER and complete VNESTS to facilitate increased communication via circumlocution and decreased frustration with 90% acc on 3/4 measured sessions. Goal 1 Status: Goal not targeted this rotation to prioritize other goals. Previous Goal #2: Pt will utilize word finding strategies as needed during conversation, structured and unstructured tasks with up to min during 90% of opportunities during 3/4 session. Goal 2 Status: Goal progressing: Pt utilized word finding strategies re; pause and self cuing with a letter board. Pt self cued x10 and was able to work through anomia with mod cues x10 Previous Goal #3: During a communication breakdown in a session, pt will identify at least 2 ways to decrease his communication frustration and utilize one of the strategies during 2/3 communication breakdowns with up to min cues during 3/4 sessions. Goal 3 Status: Goal Progressing: Pt got frustrated with his word finding x3 during the session. Required mod to max cues to work through it. St was able just point to a letter to cue the pt after the initial coaching. Pt said he continues to speak the daily affirmations. ST recommended continuing daily affirmations to reframe his mindset and help decrease frustrations. Previous Goal #4: Pt will complete word finding drills re: opposite, synonyms, divergent & convergent naming, analogies, etc. to improve his circumlocution and word finding with 80% acc I during 3 sessions Goal 4 Status: Goal Partially Met: Pt engaged in divergent naming task: named 10 foods, 6 tools independently provided letter board to aid in word finding opposite: 12/22 I synonym: 07/22 I Subjective Cog/Ling/Com Subjective Cognitive/Linguistic/Communication: Started to introduce reading out loud as a goal and pt has been making progress towards independence with this task. Reference: Neuro-QoL instrument Radiation Oncology Patient Plan Plan Plan: Will recommend Pt for continued weekly outpatient speech therapy intervention address mild to moderate expressive and receptive aphasia. Pt would benefit verbal and visual modeling, verbal/visual and tactile cuing, repeated practice, circumlocution training, partner communication training, counseling, and immediate feedback to improve articulation. Without skilled intervention Pt is at risk for difficulty communicating basic, medical, emergent, social wants & needs, and interacting with family/friends at home, and during social interactions. Recommendations Treatment Warranted: Yes Treatment Warranted: Receptive/ Expressive Language Progress Prognosis: Good Frequency Frequency: 1x/Week Duration: 3 Months Goals that are Established Determination:: Goals will be added/modified as deemed necessary and appropriate. Therapy will be discontinued when results of re-evaluation indicate therapy is no longer needed or lack of progress has been documented. Goal #1-5 Goal #1: Pt will read a multi-paragraph passage out loud independently and report a self-rating score of 2 (scale of 1 (no difficulty) to 5 (cannot do); 2 = up to min difficulty) over 3 measured sessions. Goal #2: Pt will utilize word finding strategies as needed during conversation with up to min cues and report a self-rating score of 2 (scale of 1 (no difficulty) to 5 (cannot do); 2 = up to min difficulty) over 3 measured sessions. Goal #3: During a communication breakdown in a session, pt will identify at least 2 ways to decrease his communication frustration and utilize one of the strategies during 2/3 communication breakdowns with up to min cues during 3/4 sessions. Goal #4: Pt will complete word finding drills re: opposite, synonyms, divergent & convergent naming, analogies, etc. to improve his circumlocution and word finding with 80% acc I during 3 sessions Goal #5: Pt will utilize word finding strategies as needed in real life situations with up to min cues to improve quality of life and participation in conversation based ADLs (re; family events, doctor appointments, other therapies, small talk with peers) as measured by scores of 2 on self & caregiver-rating reports (scale of 1 (no difficulty) to 5 (cannot do); 2 = up to min difficulty) over 3 measured sessions.
--- NOTE | 2023-10-20 11:36 | HP.PT.NRP ---
Patient Information Patient Information: DANNY AQUINO was seen in my office for initial evaluation on . The following Plan of Care was established for this patient: Anticipated Interventions Patient/Client Instruction: Educate patient on: Condition, Plan of Care, Risk Factors and Benefits of Fitness Program For the Purpose of:: To foster healthy habits, To improve decision making, To facilitate caregiver knowledge, To improve self management, To prevent re-injury and To improve ability to perform tasks related to life management Therapeutic Exercise to Include: Strength training, Power training, Balance training and Coordination For the Purpose of:: To improve ability of physical actions for home/community/work/leisure, To improve gait and locomotor functions, To improve health of tissue, To decrease soft tissue restriction, To increase flexibility/ROM, To improve endurance, To improve balance, To improve safety with gait and To assume or resume ADL's Last Seen Last Seen: This patient was last seen in our office 08/31/23. Pertinent comments regarding their Physical therapy will appear below: This chart will be DC at this point in time. Pt. fell ~6 weeks ago and fractured his clavicle. He came today with new script for L shoulder ROM and strengthening. This chart will be DC. At this point I will be discontinuing this patient from physical therapy. I would be happy to see this patient again in the future if found appropriate by the physician. Thank you! DARREN HuizarT
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
--- NOTE | 2023-12-29 17:10 | HP.SP.REEV ---
Visit History Visit Info Date of Eval: 09/30/21 Visit: 1 Insurance Date Limit: 03/14/24 Heat Sealing Machine Operator: LAURA Nixon Attending Doctor: Referring Doctor: Reason for Referral: STROKE, INCOMPLETE QUADRIPALEGIC. RX HERE Smoking Status: Never smoker Diagnosis Diagnosis: cva; expressive and receptive aphasia Pain Is pain an issue with your current prescribed condition?: No Personal Preferred language: Welsh Patient Allergies Allergies Allergies: Allergies ceftriaxone Allergy (Verified 12/28/23 11:23) Rash ciprofloxacin (From Cipro) Allergy (Verified 12/28/23 11:23) Hives sulfamethoxazole (From Bactrim) Allergy (Verified 12/28/23 11:23) PT UNSURE OF REACTION trimethoprim (From Bactrim) Allergy (Verified 12/28/23 11:23) PT UNSURE OF REACTION Previous/Current Goals Goals 1-5 Previous Goal #1: Pt will read a multi-paragraph passage out loud independently and report a self-rating score of 2 (scale of 1 (no difficulty) to 5 (cannot do); 2 = up to min difficulty) over 3 measured sessions. Goal 1 Status: Goal Progressing: Self Ratin-3 for a Psalm reading passage Self Ratin-4 for a reading passage from a longer multi-paragraph bible passage Previous Goal #2: Pt will utilize word finding strategies as needed during conversation with up to min cues and report a self-rating score of 2 (scale of 1 (no difficulty) to 5 (cannot do); 2 = up to min difficulty) over 3 measured sessions. Goal 2 Status: Goal Progressing: Pt rated his speech as a 3 today. Previous Goal #3: During a communication breakdown in a session, pt will identify at least 2 ways to decrease his communication frustration and utilize one of the strategies during 2/3 communication breakdowns with up to min cues during 3/4 sessions. Goal 3 Status: Goal Not Progressing: Discussed communication frustration. ST encouraged pt to self advocate & arrange his environment for optimal communication re; asking people to slow down, limiting group size, reducing background noise. Previous Goal #4: Pt will complete word finding drills re: opposite, synonyms, divergent & convergent naming, analogies, etc. to improve his circumlocution and word finding with 80% acc I during 3 sessions Goal 4 Status: Goal Progressing: Divergent naming: - trial 1, holidays) 10/22 I - trial 2, beverages) 09/21 I Opposites: 09/21 Previous Goal #5: Pt will utilize word finding strategies as needed in real life situations with up to min cues to improve quality of life and participation in conversation based ADLs (re; family events, doctor appointments, other therapies, small talk with peers) as measured by scores of 2 on self & caregiver-rating reports (scale of 1 (no difficulty) to 5 (cannot do); 2 = up to min difficulty) over 3 measured sessions. Goal 5 Status: Goal Progressing: Pt rated his speech between a 2 and a 4 depending on the day. Pt stated that his speech difficulties are more pronounced in large group and when he is tired. Pt stated his speech is better when he is only talking to 1-[address] provided education on how to modify group situations to aid communication re; going into a separate room, going outside to limit background noise, asking people to talk in a different space. Subjective Cog/Ling/Com Subjective Cognitive/Linguistic/Communication: Started to introduce reading out loud as a goal and pt has been making progress towards independence with this task. Reference: Neuro-QoL instrument Radiation Oncology Patient Plan Plan Plan: Will recommend Pt for continued weekly outpatient speech therapy intervention address mild to moderate expressive and receptive aphasia. Pt would benefit verbal and visual modeling, verbal/visual and tactile cuing, repeated practice, circumlocution training, partner communication training, counseling, and immediate feedback to improve articulation. Without skilled intervention Pt is at risk for difficulty communicating basic, medical, emergent, social wants & needs, and interacting with family/friends at home, and during social interactions. Recommendations Treatment Warranted: Yes Treatment Warranted: Receptive/ Expressive Language Progress Prognosis: Good Frequency Frequency: Every Other Week Duration: 2-4 Months Goals that are Established Determination:: Goals will be added/modified as deemed necessary and appropriate. Therapy will be discontinued when results of re-evaluation indicate therapy is no longer needed or lack of progress has been documented. Goal #1-5 Goal #1: Pt will read a multi-paragraph passage out loud independently and report a self-rating score of 2 (scale of 1 (no difficulty) to 5 (cannot do); 2 = up to min difficulty) over 3 measured sessions. Goal #2: Pt will utilize word finding strategies as needed during conversation with up to min cues and report a self-rating score of 2 (scale of 1 (no difficulty) to 5 (cannot do); 2 = up to min difficulty) over 3 measured sessions. Goal #3: Pt will utilize word finding strategies as needed in real life situations with up to min cues to improve quality of life and participation in conversation based ADLs (re; family events, doctor appointments, other therapies, small talk with peers) as measured by scores of 2 on self & caregiver-rating reports (scale of 1 (no difficulty) to 5 (cannot do); 2 = up to min difficulty) over 3 measured sessions. Goal #4: Pt will complete word finding drills re: opposite, synonyms, divergent & convergent naming, analogies, etc. to improve his circumlocution and word finding with 80% acc I during 3 sessions Goal #5: . Education Patient has Indicated that the Following Identified Educational Needs: None The Patient has indicated that they have no educational or learning abilities that may effect their care.: Yes
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
== END 2024-02-01 19:00 | disposition home or self-care (01) ==
LOC: PT 13:30
PROVIDERS: PCP Preventive Medicine Occupational Medicine; Referring Provider Family Medicine Geriatric Medicine; Visit Provider Family Medicine Geriatric Medicine
DX: I69.369 Other paralytic syndrome following cerebral infarction affecting unspecified side (principal); S14.159S Other incomplete lesion at unspecified level of cervical spinal cord, sequela; R47.01 Aphasia
CPT/HCPCS: 92507; 97110; 97161

== ENCOUNTER 2024-02-07 14:07 | Outpatient (RCR) | payer MEDICARE, OTHER, SELFPAY | END 2024-05-10 19:00 | disposition home or self-care (01) | LOC: SP 14:07 | PROVIDERS: PCP Preventive Medicine Occupational Medicine; Referring Provider Family Medicine Geriatric Medicine; Visit Provider Family Medicine Geriatric Medicine | DX: G82.54 Quadriplegia, C5-C7 incomplete (principal); I69.369 Other paralytic syndrome following cerebral infarction affecting unspecified side; R47.01 Aphasia; S42.035D Nondisplaced fracture of lateral end of left clavicle, subsequent encounter for fracture with routine healing; S40.012D Contusion of left shoulder, subsequent encounter; S14.109S Unspecified injury at unspecified level of cervical spinal cord, sequela | CPT/HCPCS: 92507; 97110 ==

== ENCOUNTER 2024-02-12 11:12 | Inpatient (IN) | payer MEDICARE, OTHER, SELFPAY ==
[2024-02-12] VITALS (8 sets, daily range): BP systolic 104–185; BP diastolic 71–101; PULSE 56–109; RESP 15–18; TEMP 36.5–36.8; O2SAT 95–99; BMI 37.8; BMI 35.6
--- NOTE | 2024-02-12 11:33 | EKG12_ITS ---
Test Reason : SYNCOPE Blood Pressure : */* mmHG Vent. Rate : 57 BPM Atrial Rate : 57 BPM P-R Int : 242 ms QRS Dur : 100 ms QT Int : 518 ms P-R-T Axes : * 13 15 degrees QTcB Int : 504 ms Atrial-paced rhythm with prolonged AV conduction Prolonged QT Abnormal ECG Confirmed by Ahmet Casas ([id number]), editor continuity and script HARJIT MARIN ([id number]) on 02/14/2024 11:35:08 AM Referred By: NIKUNJ/KACY Confirmed By: Ahmet Casas
--- NOTE | 2024-02-12 11:33 | CT_ITS ---
EXAM: CT HEAD WITHOUT INTRAVENOUS CONTRAST CLINICAL INDICATION: syncope TECHNIQUE: Multiple axial images were obtained of the head without intravenous contrast. This CT exam was performed using one or more of the following dose reduction techniques: automated exposure control, adjustment of the mA and/or kV according to patient size, and/or use of iterative reconstruction technique. COMPARISON: CT head, 10/15/2022 FINDINGS: BRAIN AND EXTRA-AXIAL SPACES: Chronic infarct in the posterior left MCA distribution similar to the prior examination. Small chronic lacunar infarct in and around of the bilateral basal ganglia. There is non-specific periventricular hypoattenuation which is most commonly related to chronic microvascular ischemic disease in a patient of this age. There is no mass, mass-effect, or shift of the midline structures. No evidence of acute infarct or acute intracranial hemorrhage. There is no evidence of pathologic extra-axial fluid. There is no hydrocephalus. Patent basal cisterns. BONES/JOINTS: No significant abnormality. No discrete lytic or blastic abnormalities. VASCULATURE: Arteriosclerosis. SINUSES: Trace mucosal thickening in the paranasal sinuses. MASTOID AIR CELLS: No significant effusion. ORBITS: No acute findings. CT/Brain/Head without Contrast IMPRESSION: 1. Chronic infarct in the posterior left MCA distribution similar to the prior examination. 2. Additional chronic ischemic changes. No CT evidence of acute intracranial pathology. Electronically Signed: Freddie Rodríguez DO at 13:10 EST ,
--- NOTE | 2024-02-12 11:34 | EDS_ITS ---
HPI History of Present Illness Chief Complaint: Syncope Detail of Chief Complaint: Syncope Informant: patient and spouse/S.O. Narrative Narrative: Patient presents to the emergency department after a syncopal episode at home. Patient has history of paraplegia and prior stroke. Apparently had a bowel movement this morning and afterwards was trying to get from his rolled shower chair to the wheelchair and his son was attempting to help him into the chair when patient passed out. He was clammy. He became unresponsive for a short time and when they checked his blood pressure was 64/48. EMS was called. Patient has history of pacemaker. He denies chest pain. He denies shortness of breath. Denies abdominal pain. He has been sick this week with fever and thought he might have a UTI. A culture was sent but no results as of yet. He was started by his primary care physician on Macrobid. He is on Eliquis for history of A-fib and prior stroke. 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 Depression Hypertension Atrial fibrillation Anterior communicating artery aneurysm Atrial fibrillation History of DVT (deep vein thrombosis) AAA (abdominal aortic aneurysm) without rupture Sick sinus syndrome Family history of hypertension History of spinal cord injury Paraplegia Premature ventricular contractions BPH (benign prostatic hypertrophy) Depression Cervical spinal stenosis Spinal cord injury Neurogenic bladder Degenerative joint disease (DJD) of lumbar spine Anemia Central cord syndrome Subluxation of C6-C7 cervical vertebrae 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.9) Home Medications ?Medication ?Instructions ?Recorded ?Last Taken ?Type lisinopril 20 mg tablet 20 mg PO DAILY blood pressure 06/24/15 03/28/19 History ascorbic acid (vitamin C) 500 mg 1,000 mg PO LUNCH supplement 08/17/21 Unknown History tablet carvedilol 12.5 mg tablet 12.5 mg PO Q12H BP 30 days #60 tabs 09/03/21 Unknown Rx tamsulosin 0.4 mg capsule 0.4 mg PO QHS Urine retention 30 09/03/21 Unknown Rx days #30 caps citalopram 20 mg tablet 20 mg PO QHS depression 12/04/21 Unknown History gabapentin 300 mg capsule 600 mg PO BID Nerve pain 12/04/21 Unknown History potassium chloride 10 mEq 10 meq PO DAILY supplement 05/19/22 Unknown History tablet,extended release(part/cryst) apixaban 5 mg tablet (Eliquis) 5 mg PO BID blood thinner #180 tabs 02/02/23 Unknown Rx piperacillin-tazobactam 3.375 3.375 g (56.25 mL) IV Q8H 5 days 10/04/23 Unknown Rx gram/50 mL dextrose(iso-os) IV piggyback (Zosyn) hydrochlorothiazide 25 mg tablet 25 mg PO QDAY #90 tabs 12/28/23 Unknown Rx Allergy/AdvReac Type Severity Reaction Status Date / Time ceftriaxone Allergy Rash Verified 02/12/24 11:20 ciprofloxacin (From Cipro) Allergy Hives Verified 02/12/24 11:20 sulfamethoxazole (From Allergy PT UNSURE Verified 02/12/24 11:20 Bactrim) OF REACTION trimethoprim (From Bactrim) Allergy PT UNSURE Verified 02/12/24 11:20 OF REACTION Family History Mother Breast cancer Cancer Brain cancer Sister Diabetes Hypertension CHF (congestive heart failure) Kidney disease Sister CHF (congestive heart failure) Cardiac defibrillator in situ Other Family history of hypertension Surgical History History of neck surgery History of permanent cardiac pacemaker placement S/P cervical spinal fusion Social History household members: spouse Smoking Status: Never smoker alcohol intake: current alcohol intake frequency: holidays/special occasions only Alcohol type: wine substance use type: does not use caffeine: Yes Type: coffee Number of servings: 1 what type of physical activity do you participate in: other details: Health point frequency: 1-2 times per week duration: 45-60 minutes/day seatbelt use: always do you feel safe at home: Yes ROS ROS ED ROS Narrative Hypotension Review of Systems ROS Unobtainable: other Constitutional Constitutional ED: Reports chills, fever(s) and lethargy; Denies sweats or weight loss Eyes Eyes: Denies blurry vision, change in vision or diplopia ENT ENT ED: Denies rhinorrhea or sore throat Cardiovascular Cardiovascular: Denies chest pain, orthopnea or racing heartbeat Respiratory/Chest Respiratory/Chest: Denies cough, dyspnea, dyspnea on exertion, orthopnea or sputum Gastrointestinal Gastrointestinal: Denies abdominal pain, diarrhea, nausea or vomiting Genitourinary Genitourinary ED: Denies dysuria, hematuria or urinary frequency Musculoskeletal Musculoskeletal: Denies arthralgias, back pain, myalgias or neck pain Integumentary Denies abscess, Abrasions or rash Neurologic Neurologic: Reports other Details: Syncope ; Denies headache(s) or weakness Psychiatric Psychiatric: Denies anxiety, depression or suicidal thoughts Endocrine Endocrinology: Denies polydipsia, polyphagia or polyuria Hematologic/Lymphatic Hematologic/Lymphatic: Denies easy bleeding, easy bruising or lymphadenopathy Allergic/Immunologic Allergic/Immunologic ED: Denies mouth swelling, tongue swelling or urticaria EXAM Physical Exam Const Vital Signs: 02/12/24 11:13 02/12/24 11:26 02/12/24 13:09 Temperature 97.7 F L Temperature Source Oral Pulse Rate 56 L 61 Respiratory Rate 15 18 Respiratory Effort Normal Non-Labored Respiratory Pattern Normal Blood Pressure 160/71 H 165/92 H Blood Pressure Mean 100 116 Pulse Ox 96 96 Oxygen Delivery Method Room Air Positive well nourished and well developed General Appearance ED: well developed and NAD HEENT Reports TM's clear and moist mucous membranes normocephalic and atraumatic; Negative for trauma or tenderness Tympanic Membrane ED: Yes TM's clear Eyes PERRL and EOMs intact bilaterally General Eye ED: Negative for pale conjunctiva or scleral icterus Neck no lymphadenopathy, supple and no JVD General: Negative for tenderness Chest Wall inspection of chest normal and palpation of chest normal Chest: Negative for tenderness Resp normal respiratory effort and clear to auscultation bilaterally Effort and Inspection: Negative for respiratory distress or pain with movement Auscultation: Negative for rhonchi, wheezes or diminished lung sounds Cardio regular rate, regular rhythm, S1 normal heart sound, S2 normal heart sound and no murmurs Peripheral Pulses: pulses 2+ throughout GI normal to inspection, nondistended, normoactive bowel sounds, soft to palpation, non-tender, non-distended and no masses Back/Spine no CVA tenderness and no thoracic nor lumbar tenderness Extremity normal to inspection General Extremety ED: Negative for edema General Extremity: Negative for edema Neuro oriented x3, CN's II-XII intact bilaterally, no sensory deficits noted and gait normal Neuro Narrative: Weakness both lower extremities with minimal ability to just move his toes. Patient with weakness of the right upper extremity. Sensorium / Orientation: awake, alert, oriented to person, oriented to place and oriented to time Motor Exam: strength 5/5 throughout and strength abnormal Psych mental status grossly normal Skin no rashes or lesions noted and no wounds MDM MDM MDM Narrative Medical decision making narrative: Patient presents with a syncopal episode from home via EMS. Patient apparently was unresponsive for about 15 minutes. Family took her blood pressure and he was hypotensive at the time. He had had a large bowel movement prior to that. Patient had also been sick with a fever for this last week and was thought to maybe have a UTI so he was started on Macrobid. Patient also has a pacemaker for history of sick sinus syndrome and history of A-fib. Patient's had prior stroke. IV line established. EKG obtained arrival showed atrially paced rhythm with prolonged QT. CBC with differential obtained showed a white count 5.3 with hemoglobin 11.7 platelet count of 133. Chemistries showed a low potassium of 2.8 with sodium of 140. BUN was 27 and creatinine 1.45. Glucose 130. Lactate 1.4. Troponin normal at 17. Urinalysis was normal. Patient was given 40 mill equivalents of potassium chloride p.o. He was given a liter normal same fluid bolus. Unable to perform orthostatics on patient as he does not ambulate. Patient cannot stand. Because of the type of pacemaker he has we are unable to interrogated here today. Will discuss case with hospitalist to evaluate patient for admission for syncope with history of hypotension. Some signs of dehydration. Lab Data Attestation: I reviewed the patient's lab results. Labs: Laboratory Results - last 24 hr 02/12/24 02/12/24 02/12/24 11:25 12:10 12:53 WBC 5.3 RBC 3.93 L Hgb 11.7 L Hct 35.1 L MCV 89.3 MCH 29.8 MCHC 33.3 RDW Std Deviation 47.2 H RDW Coeff of Donna 14.3 Plt Count 133 L MPV 10.3 Immature Gran % (Auto) 0.400 Neut % (Auto) 72.1 H Lymph % (Auto) 12.4 L [place] % (Auto) 11.7 H Eos % (Auto) 2.8 Baso % (Auto) 0.6 Absolute Neuts (auto) 3.8 Absolute Lymphs (auto) 0.66 L Nucleated RBC % 0 Sodium 140 Potassium 2.8 L Chloride 106 Carbon Dioxide 29.0 Anion Gap 6 BUN 27 H Creatinine 1.45 H Estim Creat Clear Calc 53.60 Est GFR (MDRD) Af Amer 61 Est GFR (MDRD) Non-Af 50 L BUN/Creatinine Ratio 18.6 Glucose 130 H Lactic Acid 1.4 Calcium 8.6 Troponin I High Sens 17 Urine Color Yellow Urine Clarity Clear Urine pH 8.0 Ur Specific [place] 1.015 Urine Protein 30 H Urine Glucose (UA) Normal Urine Ketones Negative Urine Occult Blood 10 H Urine Nitrite Negative Urine Bilirubin Negative Urine Urobilinogen Normal Ur Leukocyte Esterase 100 H Urine RBC 0 SEEN Urine WBC 0-5 SEEN Ur Squamous Epith Cells 0 SEEN Urine Bacteria 0 SEEN Urine Mucus 0 SEEN Radiography Diagnostic Testing: Clinical Impression(s) from Imaging Studies Brain CT 02/12/24 11:33 IMPRESSION: 1. Chronic infarct in the posterior left MCA distribution similar to the prior examination. 2. Additional chronic ischemic changes. No CT evidence of acute intracranial pathology. Electronically Signed: Freddie VAntonio Rodríguez DO at 13:10 EST , Chest X-Ray 02/12/24 12:10 IMPRESSION: 1. Bibasilar pulmonary opacities, left greater than right perhaps secondary to atelectasis or pneumonia. Possible left pleural effusion. 2. Cardiomegaly and/or pericardial effusion. Electronically Signed: Freddie VAntonio Rodríguez DO at 13:08 EST , 1 view chest x-ray obtained shows poor inspiration with some increased markings in the left lung base with small effusion on my interpretation. Radiology in agreement and also noted cardiomegaly and or pericardial effusion. EKG Initial EKG: Attestation: I personally reviewed and interpreted this EKG as follows: Comments: Atrially paced rhythm with prolonged AV conduction and prolonged QT Discharge Plan Triage Chief Complaint: Syncope ED Provider: Jesse Yee Dx/Rx/DC Orders Clinical Impression: Syncope, Transient hypotension, Acute hypokalemia, Dehydration Prescriptions: No Action citalopram 20 mg tablet 20 mg PO QHS gabapentin 300 mg capsule 600 mg PO BID potassium chloride 10 mEq tablet,ER particles/crystals 10 meq PO DAILY hydrochlorothiazide 25 mg tablet 25 mg PO QDAY Qty: 90 3RF lisinopril 20 MG tablet 20 mg PO DAILY Patient Comments: BLOOD PRESSURE ascorbic acid (vitamin C) 500 mg tablet 1,000 mg PO LUNCH carvedilol 12.5 mg Tablet 12.5 mg PO Q12H 30 Days Qty: 60 0RF tamsulosin 0.4 mg Capsule 0.4 mg PO QHS 30 Days Qty: 30 0RF Zosyn in dextrose (iso-osm) 3.375 gram/50 mL piggyback 3.375 g IV Q8H 5 Days Rx Instructions: stop date 10/09/23. Dx: pseudomonas infection Eliquis 5 mg tablet 5 mg PO BID Qty: 180 4RF Primary Care Provider: Tunde Beard Referrals: Tunde Beard DO [Primary Care Provider] - Print Language: Turkmen Disposition Disposition: Acute Care [facility]
[2024-02-12 11:43] LABS: Absolute Lymphocyte Count 0.66 X10^3/uL (0.83-4.51); Absolute Neutrophil Count 3.8 X10^3/uL (2.0-7.7); Basophil# 0.03 X10^3/uL; Basophil% 0.6 % (0-1); Eosinophil# 0.15 X10^3/uL; Eosinophils% 2.8 % (0-5); Hematocrit 35.1 % (40-54); Hemoglobin 11.7 g/dL (13.0-16.5); Lymphocyte # 0.66 X10^3/ul (0.83-4.51); Lymphocyte % 12.4 % (19-41); Mean Corp Hgb Conc 33.3 g/dL (32-36); Mean Corpuscular Hgb 29.8 pg (27.0-32.0); Mean Corpuscular Volume 89.3 fL (80-94); Mean Platelet Vol. 10.3 fl (6.2-12.0); Monocyte# 0.62 X10^3/uL; Monocyte% 11.7 % (0-10); NRBC Flagged by Analyzer 0 % (0-5); Neutrophil # 3.84 X10^3/uL (2.7-7.7); Neutrophil % 72.1 % (47-70); Platelet Count 133 K/mm3 (150-450); RBC Distribution Width CV 14.3 % (11.6-14.6); RBC Distribution Width SD 47.2 fl (35.1-43.9); Red Blood Count 3.93 M/mm3 (4.6-6.2); White Blood Count 5.3 K/mm3 (4.4-11.0)
[2024-02-12] MEDS: 0.9% Normal Saline (1000mL) 1,000 ML 1000 ML IV (12:00)
[2024-02-12 12:03] LABS: Anion Gap 6 (5-15); BUN 27 mg/dL (7-18); BUN/Creat Ratio 18.6 RATIO (10-20); Calcium,Total 8.6 mg/dL (8.5-10.1); Chloride 106 mmol/L (98-107); Creatinine, Serum 1.45 mg/dL (0.70-1.30); EST Glomerular Filtration Rate 50 mL/min (>60); Est Glom Filt Rate - Afr Amer 61 mL/min (>60); Glucose 130 mg/dL (74-106); Potassium 2.8 mmol/L (3.5-5.1); Sodium Level 140 mmol/L (136-145); Troponin-I HS 17 pg/mL (3.0-78.0)
--- NOTE | 2024-02-12 12:08 | ED.RN ---
this RN attempts to interrogate pacemaker. pt has a [employer]. This RN attempted a [employer] interrogator and was unsuccessful. pt does not have a card with him to call a medical claims representative from the company. dr hernandez made aware.
--- NOTE | 2024-02-12 12:10 | RAD_ITS ---
EXAM: XR CHEST, 1 VIEW CLINICAL INDICATION: fever TECHNIQUE: Frontal view of the chest. COMPARISON: 08/25/2022. FINDINGS: LUNGS AND PLEURAL SPACES: Bibasilar pulmonary opacities, left greater than right perhaps secondary to atelectasis or pneumonia. Possible left pleural effusion. No pneumothorax. HEART: Cardiomegaly and/or pericardial effusion. MEDIASTINUM: Central airways and mediastinal contour are unremarkable. BONES/JOINTS: Postoperative changes in the cervical spine and degenerative changes throughout the spine. No acute fracture. SOFT TISSUES: No significant abnormality. TUBES, LINES AND DEVICES: Left-sided cardiac device. RAD/Chest 1 View (Portable) IMPRESSION: 1. Bibasilar pulmonary opacities, left greater than right perhaps secondary to atelectasis or pneumonia. Possible left pleural effusion. 2. Cardiomegaly and/or pericardial effusion. Electronically Signed: Freddie Rodríguez DO at 13:08 EST ,
[2024-02-12 12:42] LABS: Bacteria 0 SEEN /hpf (None Seen); Mucous, Urine 0 SEEN /hpf (<or=2+); Red Blood Cells-Urine 0 SEEN /hpf (0-5); Squamous Epithelial Cells - UA 0 SEEN /hpf (0-5)
[2024-02-12 12:46] LABS: Color, Urine Yellow (Yellow); Glucose, Dipstick Normal (Normal); Ketone-Dipstick Negative (Negative); Leukocyte Esterase-Dipstick 100 /ul (Negative); Nitrite-Dipstick Negative (Negative); Occult Blood-Urine 10 /ul (Negative); Protein-Dipstick 30 mg/dl (Negative); Specific Gravity, Urine 1.015 (1.002-1.030); Urine Bilirubin Dipstick Negative (Negative); Urine Clarity Clear (Clear); Urine Urobilinogen Normal (Normal)
[2024-02-12 12:52] LABS: White Blood Cells 0-5 SEEN /hpf (0-5)
[2024-02-12] MEDS: Potassium Chloride Oral Tablet 20 MEQ 40 MEQ PO (13:14)
[2024-02-12 13:30] LABS: Lactic Acid 1.4 mmol/L (0.4-1.9)
--- NOTE | 2024-02-12 13:41 | HP.PCM.HOS_ITS ---
HPI - General General Date of Admission: 02/12/24 Date of Service: 02/12/24 HPI Narrative DANNY AQUINO, is a 78 M with a PMH as outlined who presents via the ED On 02/12/2024 with a complaint of syncope. He has a history of previous stroke and paraplegia. There had been concerns for a UTI on outpatient basis and so his PCP called in macrobid which he has been taking for 3 days. HE went to have a bowel movement today, and whilst trying to get into his wheel chair, he became weak, lightheaded and clammy, so he was brought in to the ED after the EMS was called. He did pass out in the process. The EMS found him to have a BP of 64/48 when they arrived. Review of systems was otherwise negative. Son said he had a history of lower extremity paralysis from a previous accident and also had problems with his speech due to Vitals in the ED with blood pressure 165/92, pulse rate of 61, respirate rate of 18 and he was saturating at 96% on room air. CBC showed hemoglobin of 11.7 WBC of 5.3 and platelets of 133. Chemistry showed sodium of 140 with potassium of 2.8 and creatinine of 1.45. Initial troponin was negative. Urinalysis showed Elevated leukocyte esterase but showed no nitrites or WBC or bacteria. CT of the brain showed no acute intracranial pathology. He is being admitted to be managed for syncope. 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 Depression Hypertension Atrial fibrillation Anterior communicating artery aneurysm Atrial fibrillation History of DVT (deep vein thrombosis) AAA (abdominal aortic aneurysm) without rupture Sick sinus syndrome Family history of hypertension History of spinal cord injury Paraplegia Premature ventricular contractions BPH (benign prostatic hypertrophy) Depression Cervical spinal stenosis Spinal cord injury Neurogenic bladder Degenerative joint disease (DJD) of lumbar spine Anemia Central cord syndrome Subluxation of C6-C7 cervical vertebrae 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.9) Home Medications ?Medication ?Instructions ?Recorded ?Last Taken ?Type lisinopril 20 mg tablet 20 mg PO DAILY blood pressure 06/24/15 03/28/19 History ascorbic acid (vitamin C) 500 mg 1,000 mg PO LUNCH supplement 08/17/21 Unknown History tablet carvedilol 12.5 mg tablet 12.5 mg PO Q12H BP 30 days #60 tabs 09/03/21 Unknown Rx tamsulosin 0.4 mg capsule 0.4 mg PO QHS Urine retention 30 09/03/21 Unknown Rx days #30 caps citalopram 20 mg tablet 20 mg PO QHS depression 12/04/21 Unknown History gabapentin 300 mg capsule 600 mg PO BID Nerve pain 12/04/21 Unknown History potassium chloride 10 mEq 10 meq PO DAILY supplement 05/19/22 Unknown History tablet,extended release(part/cryst) apixaban 5 mg tablet (Eliquis) 5 mg PO BID blood thinner #180 tabs 02/02/23 Unknown Rx piperacillin-tazobactam 3.375 3.375 g (56.25 mL) IV Q8H 5 days 10/04/23 Unknown Rx gram/50 mL dextrose(iso-os) IV piggyback (Zosyn) hydrochlorothiazide 25 mg tablet 25 mg PO QDAY #90 tabs 12/28/23 Unknown Rx Allergy/AdvReac Type Severity Reaction Status Date / Time ceftriaxone Allergy Rash Verified 02/12/24 11:20 ciprofloxacin (From Cipro) Allergy Hives Verified 02/12/24 11:20 sulfamethoxazole (From Allergy PT UNSURE Verified 02/12/24 11:20 Bactrim) OF REACTION trimethoprim (From Bactrim) Allergy PT UNSURE Verified 02/12/24 11:20 OF REACTION Family History Mother Breast cancer Cancer Brain cancer Sister Diabetes Hypertension CHF (congestive heart failure) Kidney disease Sister CHF (congestive heart failure) Cardiac defibrillator in situ Other Family history of hypertension Surgical History History of neck surgery History of permanent cardiac pacemaker placement S/P cervical spinal fusion Social History household members: spouse Smoking Status: Never smoker alcohol intake: current alcohol intake frequency: holidays/special occasions only Alcohol type: wine substance use type: does not use caffeine: Yes Type: coffee Number of servings: 1 what type of physical activity do you participate in: other details: Health point frequency: 1-2 times per week duration: 45-60 minutes/day seatbelt use: always do you feel safe at home: Yes ROS Review of Systems ROS Unobtainable: Denies due to encephalopathy Constitutional Constitutional: Reports fatigue, malaise and weakness; Denies anorexia, chills or fever(s) Eyes Eyes: Denies change in vision ENT HEENT: Denies dysphagia, headache(s) or sore throat Cardiovascular Cardiovascular: Denies chest pain, dyspnea on exertion, edema, lightheadedness, orthopnea or palpitations Respiratory/Chest Respiratory/Chest: Denies cough, excessive phlegm production, shortness of breath at rest or shortness of breath with exertion Gastrointestinal Gastrointestinal: Denies abdominal pain, constipation, nausea or vomiting Genitourinary Genitourinary: Reports other; Denies burning urination, difficulty urinating or dysuria Neurologic Neurologic: Denies confusion, dizziness, focal weakness, headache(s) or numbness Psychiatric Psychiatric: Denies anxiety or depression Endocrine Endocrinology: Denies change in body appearance Hematologic/Lymphatic Hematologic/Lymphatic: Denies anemia Vital Signs Vital Signs Vital Signs: 02/12/24 11:13 02/12/24 11:26 02/12/24 13:09 Temperature 97.7 F L Temperature Source Oral Pulse Rate 56 L 61 Respiratory Rate 15 18 Respiratory Effort Normal Non-Labored Respiratory Pattern Normal Blood Pressure 160/71 H 165/92 H Blood Pressure Mean 100 116 Pulse Ox 96 96 Oxygen Delivery Method Room Air Weight Weight: 255 lb 11.779 oz Body Mass Index (BMI) 37.8 Physical Exam Const alert, oriented x3, no apparent distress and average body habitus Constitutional Narrative: frail, weak General Appearance: cooperative HEENT normocephalic, head/scalp atraumatic, hearing grossly normal bilaterally and moist oral mucous membranes Mouth: oral and palatal mucosa normal and moist mucous membranes abnormal Eyes PERRL, EOMs intact bilaterally and conjunctivae normal Neck no lymphadenopathy and supple Resp normal respiratory effort, no retractions, no use of accessory muscles and clear to auscultation bilaterally Cardio regular rate, regular rhythm, S1 normal heart sound, S2 normal heart sound and no murmurs GI normal to inspection, nondistended, normoactive bowel sounds, soft to palpation, non-tender and non-distended Extremity normal to inspection Extremity Narrative: has bilateral LE paralysis, with power of 1/5 in both LEs Neuro oriented x3 and CN's II-XII intact bilaterally Neuro Narrative: flat affect, mild dysarthria which is chronic. Bilateral lower extremity paralysis from accident. Sensorium / Orientation: awake Psych Psych Narrative: flat affect Results Lab / Micro Data 02/12/24 11:25 02/12/24 11:25 Labs: Laboratory Results - last 24 hr 02/12/24 11:25: WBC 5.3, RBC 3.93 L, Hgb 11.7 L, Hct 35.1 L, MCV 89.3, MCH 29.8, MCHC 33.3, RDW Std Deviation 47.2 H, RDW Coeff of [place] 14.3, Plt Count 133 L, MPV 10.3, Immature Gran % (Auto) 0.400, Neut % (Auto) 72.1 H, Lymph % (Auto) 12.4 L, [place] % (Auto) 11.7 H, Eos % (Auto) 2.8, Baso % (Auto) 0.6, Absolute Neuts (auto) 3.8, Absolute Lymphs (auto) 0.66 L, Nucleated RBC % 0, Sodium 140, Potassium 2.8 L, Chloride 106, Carbon Dioxide 29.0, Anion Gap 6, BUN 27 H, Creatinine 1.45 H, Estim Creat Clear Calc 53.60, Est GFR (MDRD) Af Amer 61, Est GFR (MDRD) Non-Af 50 L, BUN/Creatinine Ratio 18.6, Glucose 130 H, Calcium 8.6, Troponin I High Sens 17 02/12/24 12:10: Urine Color Yellow, Urine Clarity Clear, Urine pH 8.0, Ur Specific [place] 1.015, Urine Protein 30 H, Urine Glucose (UA) Normal, Urine Ketones Negative, Urine Occult Blood 10 H, Urine Nitrite Negative, Urine Bilirubin Negative, Urine Urobilinogen Normal, Ur Leukocyte Esterase 100 H, Urine RBC 0 SEEN, Urine WBC 0-5 SEEN, Ur Squamous Epith Cells 0 SEEN, Urine Bacteria 0 SEEN, Urine Mucus 0 SEEN 02/12/24 12:53: Lactic Acid 1.4 Micro: Microbiology 02/12/24 11:39 Mucosa - Nose SARS-CoV-2, Influenza & RSV (PCR) - Final Imaging Radiology Impression Brain CT 02/12/24 11:33 IMPRESSION: 1. Chronic infarct in the posterior left MCA distribution similar to the prior examination. 2. Additional chronic ischemic changes. No CT evidence of acute intracranial pathology. Electronically Signed: Freddie Rodríguez DO at 13:10 EST , Chest X-Ray 02/12/24 12:10 IMPRESSION: 1. Bibasilar pulmonary opacities, left greater than right perhaps secondary to atelectasis or pneumonia. Possible left pleural effusion. 2. Cardiomegaly and/or pericardial effusion. Electronically Signed: Freddie Rodríguez DO at 13:08 EST , Assessment & Plan Assessment/Plan (1) Syncope: PLAN: Plan #Syncope * Likely vasovagal syncope. * Patient had been on the toilet for about 10 minutes. Son says he has a history of vasovagal syncope. * Was getting on the toilet patient became dizzy and lightheaded and passed out. He was found to be hypotensive on admission with blood pressure down in the 60s systolic. * CT of the brain showed no acute intracranial pathology. EKG showed no acute ST changes. * After hydration with IV fluids blood pressure came up and when I reviewed him blood pressure was up in the 190s systolic. * Admit to PCU under observation. Hydrate gently with IV fluid normal saline at 125 cc/h. * PT OT on consult. Fall precautions * She also has a history of orthostatic hypotension. * #Hypokalemia: Potassium is 2.8. Will replace aggressively and trend potassium. Check magnesium level #Elevated creatinine: Creatinine is 1.45. Baseline is around 1.16. Should improve with hydration. Will monitor. #History of lower extremity bilateral paralysis due to accident: * Has bilateral lower extremity weakness and paralysis. PT OT consult. Fall precautions. #History of A-fib: On Eliquis #BPH: On Flomax #History of CVA: Has a mild residual dysarthria #Hypertension: Blood pressure is markedly elevated on admission. On lisinopril and hydrochlorothiazide as well as carvedilol. IV hydralazine. #DVT prophylaxis: On Eliquis CODE STATUS: Full code * Patient counseled extensively about different types of CODE STATUS including full code, DNR CCA and DNR CCA. Patient elects to be full code. Total otfu-hi-iamb time 16 minutes. Charges/Coding Visit Charges Inpatient E&M: 38119 Init Hosp L3 Procedures Hospitalists Procedures: 88142 Advncd Care Plan 30 Min
[2024-02-12] MEDS: 0.9% Saline Lock 10 ML Syringe IV (16:39)
[2024-02-12] MEDS: 0.9% Normal Saline (1000mL) 1,000 ML 125 ML IV (16:39)
[2024-02-12] MEDS: Menthol/Lanolin/Calamine/Znox 113 GM Tube 1 APPLIC TOPICAL (16:40)
--- NOTE | 2024-02-12 17:11 | CT_ITS ---
INDICATION: pericardial effusion, pleural effusion EXAMINATION: CT CHEST WITHOUT CONTRAST - CT Chest W/O Contrast Injection TECHNIQUE: Helically acquired images were obtained of the chest. A radiation dose optimization technique was used for this scan. IV Contrast dosage and agent: None. COMPARISON: None. FINDINGS: LUNGS, PLEURA AND LARGE AIRWAYS: No masses, consolidation, or edema. Trace right pleural effusion. No pneumothorax. THYROID: No thyroid lesions. HEART AND PERICARDIUM: Borderline cardiomegaly. Small pericardial effusion, 14 mm maximal thickness. Transvenous pacemaker. VESSELS: No thoracic aortic aneurysm. MEDIASTINUM AND RAQUEL: No mediastinal or hilar adenopathy. Esophagus is unremarkable. No hiatal hernia. UPPER ABDOMEN: No acute pathology. BONES: No acute or aggressive abnormality. CT/Chest without Contrast IMPRESSION: Borderline cardiomegaly with small pericardial effusion. Trace right pleural effusion. Electronically Signed: Preston Barney MD at 19:37 EST ,
--- NOTE | 2024-02-12 17:13 | ECHOD_ITS ---
Reason For Study: SYNCOPE Procedure This was a 2D Doppler, Color Flow transthoracic echocardiogram. The study was technically difficult. Contrast injection was performed. Exam performed portable in patient room. Left Ventricle Normal LV size. The estimated ejection fraction is 65 %. No evidence for diastolic dysfunction. No regional wall motion abnormalities noted. Right Ventricle Normal RV size. ICD or pacer leads identified within the right ventricle. Normal systolic function. Atria The left atrium is mildly enlarged. Normal right atrium. ICD or pacer leads identified within the right atrium. No doppler evidence for ASD. Bubble contrast study is negative for PFO/ASD. Mitral Valve There is no mitral valve stenosis. No mitral valve insufficiency. Tricuspid Valve There is no tricuspid stenosis. Trivial tricuspid valve insufficiency. Pulmonary artery systolic pressure is 35 mmHg. Aortic Valve Trisinus/trileaflet aortic valve. Mild diffuse aortic valve thickening. Mild aortic stenosis. No aortic valve insufficiency. Pulmonic Valve There is no pulmonic valvular stenosis. No pulmonic valve insufficiency. Great Vessels Normal aortic root. Pericardium/Pleural No pericardial effusion. Medication Diluted definity 2ml given slow IV push to enhance endocardial definition. Performed a rapid injection of agitated mix of 9 cc saline and 1cc air to assess for atrial septal defect. Bubble study attempted x3. MMode/2D Measurements & Calculations Ao root diam: 4.0 cm LAV(MOD-sp4): 59.3 ml LVAd ap4: 38.6 cm2 LVLd ap4: 9.1 cm EDV(MOD-sp4): 137.7 ml EDV(sp4-el): 139.6 ml LVAs ap4: 18.0 cm2 LVLs ap4: 6.8 cm ESV(MOD-sp4): 39.8 ml ESV(sp4-el): 40.6 ml EF(MOD-sp4): 71.1 % EF(sp4-el): 70.9 % SV(MOD-sp4): 97.9 ml SV(sp4-el): 98.9 ml LA A4 area: 22.9 cm2 SI(MOD-sp4): 43.8 ml/m2 LA dimension(2D): 4.2 cm RA A4 area: 16.9 cm2 Time Measurements MV dec time: 0.18 sec Doppler Measurements & Calculations MV E max kevin: 95.4 cm/sec Lat Peak E' Kevin: 10.6 cm/sec Med Peak E' Kevin: 8.5 cm/sec MV A max kevin: 75.8 cm/sec E/E' lat: 9.0 E/E' med: 11.2 MV E/A: 1.3 MV V2 max: 113.1 cm/sec MV dec slope: 543.4 cm/sec2 Ao V2 max: 208.1 cm/sec MV max P.2 mmHg Ao max P.3 mmHg MV V2 mean: 58.4 cm/sec Ao V2 mean: 135.5 cm/sec MV mean P.7 mmHg Ao mean P.7 mmHg MV V2 VTI: 35.6 cm Ao V2 VTI: 43.0 cm TR max kevin: 267.7 cm/sec TR max P.7 mmHg ECHO/Echo Complete W/ Contrast Interpretation Summary The estimated ejection fraction is 65 %. No evidence for diastolic dysfunction. The left atrium is mildly enlarged. Mild aortic stenosis. Ordering Physician: Sanjuanita Karimi Referring Physician: MALLORY MCPHERSON Performed By: Donya Cash and Student
[2024-02-12] MEDS: Citalopram 20 MG Tablet PO (21:19)
[2024-02-12] MEDS: Carvedilol 12.5 MG Tablet PO (21:19)
[2024-02-12] MEDS: APIXABAN 5 MG TABLET PO (21:20)
[2024-02-12] MEDS: Gabapentin 300 MG Capsule 600 MG PO (21:20)
[2024-02-12] MEDS: hydroCHLOROthiazide 25 MG Tablet PO (21:20)
[2024-02-12] MEDS: Tamsulosin HCl 0.4 MG Capsule PO (21:20)
[2024-02-12] MEDS: Nitrofurantoin Macrocrystals 100 MG Capsule PO (21:30)
[2024-02-13] VITALS (10 sets, daily range): BP systolic 107–181; BP diastolic 61–93; PULSE 58–85; RESP 16–26; TEMP 36.5–39.4; O2SAT 93–97
[2024-02-13] MEDS: 0.9% Normal Saline (1000mL) 1,000 ML 125 ML IV (02:18)
[2024-02-13] MEDS: hydrALAZINE 20 MG/ML Vial 10 MG IV (03:25)
[2024-02-13] MEDS: 0.9% Saline Lock 10 ML Syringe IV (03:26)
[2024-02-13 07:04] LABS: Absolute Lymphocyte Count 1.09 X10^3/uL (0.83-4.51); Absolute Neutrophil Count 3.9 X10^3/uL (2.0-7.7); Basophil# 0.03 X10^3/uL; Basophil% 0.5 % (0-1); Eosinophil# 0.15 X10^3/uL; Eosinophils% 2.6 % (0-5); Hematocrit 35.4 % (40-54); Hemoglobin 11.6 g/dL (13.0-16.5); Lymphocyte # 1.09 X10^3/ul (0.83-4.51); Lymphocyte % 18.7 % (19-41); Mean Corp Hgb Conc 32.8 g/dL (32-36); Mean Corpuscular Hgb 29.1 pg (27.0-32.0); Mean Corpuscular Volume 88.7 fL (80-94); Monocyte# 0.64 X10^3/uL; NRBC Flagged by Analyzer 0 % (0-5); Neutrophil # 3.89 X10^3/uL (2.7-7.7); Neutrophil % 66.9 % (47-70); Platelet Count 149 K/mm3 (150-450); RBC Distribution Width CV 14.4 % (11.6-14.6); RBC Distribution Width SD 46.3 fl (35.1-43.9); Red Blood Count 3.99 M/mm3 (4.6-6.2); White Blood Count 5.8 K/mm3 (4.4-11.0)
[2024-02-13 08:05] LABS: Anion Gap 9 (5-15); BUN 21 mg/dL (7-18); BUN/Creat Ratio 21.1 RATIO (10-20); Calcium,Total 8.5 mg/dL (8.5-10.1); Chloride 110 mmol/L (98-107); EST Glomerular Filtration Rate 77 mL/min (>60); Est Glom Filt Rate - Afr Amer 93 mL/min (>60); Estimated Creatinine Clearance 75.41 ml/min; Glucose 91 mg/dL (74-106); Potassium 2.9 mmol/L (3.5-5.1); Sodium Level 142 mmol/L (136-145)
--- NOTE | 2024-02-13 09:55 | PN_ITS ---
Subjective Subjective Patient seen and examined. He had no active complaints. He was asking if he could go home. Review of systems otherwise negative. He has remained hemodynamically stable. He has been hydrated with IV fluids. Orthostatics check pending today. Objective Data Objective Data Vital Signs: Vital Signs Temp Pulse Resp BP Pulse Ox O2 Del Method 97.8 F 63 16 145/78 H 97 Room Air 02/13/24 03:00 02/13/24 03:25 02/13/24 03:00 02/13/24 04:35 02/13/24 03:00 02/13/24 03:00 Oxygen Delivery Method Room Air Weight: 241 lb 2.971 oz Body Mass Index (BMI) 35.6 Intake & Output: Intake and Output for Last 24 Hours 02/11/24 02/12/24 02/13/24 23:59 23:59 23:59 Intake Total 1950 / 2200 1500 / 1500 Output Total 500 / 1100 2000 / 2000 Balance 1450 / 1100 -500 / -500 Lab / Micro Data 02/13/24 05:50 02/13/24 05:50 Labs: Laboratory Results - last 24 hr 02/12/24 11:25: WBC 5.3, RBC 3.93 L, Hgb 11.7 L, Hct 35.1 L, MCV 89.3, MCH 29.8, MCHC 33.3, RDW Std Deviation 47.2 H, RDW Coeff of Donna 14.3, Plt Count 133 L, MPV 10.3, Immature Gran % (Auto) 0.400, Neut % (Auto) 72.1 H, Lymph % (Auto) 12.4 L, [place] % (Auto) 11.7 H, Eos % (Auto) 2.8, Baso % (Auto) 0.6, Absolute Neuts (auto) 3.8, Absolute Lymphs (auto) 0.66 L, Nucleated RBC % 0, Sodium 140, Potassium 2.8 L, Chloride 106, Carbon Dioxide 29.0, Anion Gap 6, BUN 27 H, Creatinine 1.45 H, Estim Creat Clear Calc 53.60, Est GFR (MDRD) Af Amer 61, Est GFR (MDRD) Non-Af 50 L, BUN/Creatinine Ratio 18.6, Glucose 130 H, Calcium 8.6, Troponin I High Sens 17, B-Natriuretic Peptide 195.0 H 02/12/24 12:10: Urine Color Yellow, Urine Clarity Clear, Urine pH 8.0, Ur Specific [place] 1.015, Urine Protein 30 H, Urine Glucose (UA) Normal, Urine Ketones Negative, Urine Occult Blood 10 H, Urine Nitrite Negative, Urine Bilirubin Negative, Urine Urobilinogen Normal, Ur Leukocyte Esterase 100 H, Urine RBC 0 SEEN, Urine WBC 0-5 SEEN, Ur Squamous Epith Cells 0 SEEN, Urine Bacteria 0 SEEN, Urine Mucus 0 SEEN 02/12/24 12:53: Lactic Acid 1.4 02/13/24 05:50: WBC 5.8, RBC 3.99 L, Hgb 11.6 L, Hct 35.4 L, MCV 88.7, MCH 29.1, MCHC 32.8, RDW Std Deviation 46.3 H, RDW Coeff of Donna 14.4, Plt Count 149 L, MPV 11.0, Immature Gran % (Auto) 0.300, Neut % (Auto) 66.9, Lymph % (Auto) 18.7 L, M mya % (Auto) 11.0 H, Eos % (Auto) 2.6, Baso % (Auto) 0.5, Absolute Neuts (auto) 3.9, Absolute Lymphs (auto) 1.09, Nucleated RBC % 0, Sodium 142, Potassium 2.9 L , Chloride 110 H, Carbon Dioxide 23.0, Anion Gap 9, BUN 21 H, Creatinine 1.00, Estim Creat Clear Calc 75.41, Est GFR (MDRD) Af Amer 93, Est GFR (MDRD) Non-Af 77, BUN/Creatinine Ratio 21.1 H, Glucose 91, Calcium 8.5 Micro: Microbiology 02/12/24 11:39 Mucosa - Nose SARS-CoV-2, Influenza & RSV (PCR) - Final Radiography Diagnostic Testing: Radiology Impression Brain CT 02/12/24 11:33 IMPRESSION: 1. Chronic infarct in the posterior left MCA distribution similar to the prior examination. 2. Additional chronic ischemic changes. No CT evidence of acute intracranial pathology. Electronically Signed: Freddie Rodríguez DO at 13:10 EST , Chest X-Ray 02/12/24 12:10 IMPRESSION: 1. Bibasilar pulmonary opacities, left greater than right perhaps secondary to atelectasis or pneumonia. Possible left pleural effusion. 2. Cardiomegaly and/or pericardial effusion. Electronically Signed: Freddie Rodríguez DO at 13:08 EST , Chest CT 02/12/24 17:11 IMPRESSION: Borderline cardiomegaly with small pericardial effusion. Trace right pleural effusion. Electronically Signed: Preston Barney MD at 19:37 EST , Physical Exam Const alert, oriented x3, no apparent distress and average body habitus Constitutional Narrative: frail, weak General Appearance: cooperative and well developed HEENT normocephalic, head/scalp atraumatic, hearing grossly normal bilaterally and moist oral mucous membranes Eyes PERRL, EOMs intact bilaterally and conjunctivae normal Neck no lymphadenopathy and supple Resp normal respiratory effort, normal air movement, no retractions, no use of accessory muscles and clear to auscultation bilaterally Cardio regular rate, regular rhythm, S1 normal heart sound, S2 normal heart sound and no murmurs GI normal to inspection, nondistended, normoactive bowel sounds, soft to palpation, non-tender and non-distended Extremity normal to inspection Extremity Narrative: has bilateral LE paralysis, with power of 1/5 in both LEs General Extremity: no tenderness to palpation of joints or extremities Skin General Skin Exam: no breakdown Neuro oriented x3 and CN's II-XII intact bilaterally Neuro Narrative: flat affect, mild dysarthria which is chronic. Bilateral lower extremity paralysis from accident. Sensorium / Orientation: awake Motor Exam: general weakness Psych thought process normal Psych Narrative: f Appearance: appropriate Assessment & Plan Assessment/Plan (1) Syncope: PLAN: Plan #Syncope due to orthostatic hypotension * Likely vasovagal syncope. * Patient had been on the toilet for about 10 minutes. Son says he has a history of vasovagal syncope. * Was getting on the toilet patient became dizzy and lightheaded and passed out. He was found to be hypotensive on admission with blood pressure down in the 60s systolic. * CT of the brain showed no acute intracranial pathology. EKG showed no acute ST changes. * orthostatics were positive yesterday, and still remain positive today. * PT/OT on board. Fall precautions. * #Hypokalemia: * Potassium is 2.9 today. * Will replace aggressively and trend potassium. Check magnesium level #Elevated creatinine: resolved. Cr is down to 1 toay #History of lower extremity bilateral paralysis due to accident: * Has bilateral lower extremity weakness and paralysis. PT OT consult. Fall precautions. #History of A-fib: On Eliquis #BPH: On Flomax #History of CVA: Has a mild residual dysarthria. Stable. #Hypertension: * Blood pressure is markedly elevated on admission. On lisinopril and hydrochlorothiazide as well as carvedilol. IV hydralazine. * Hold hydrochlorothiazide due to orthostatic hypotension. #DVT prophylaxis: On Eliquis CODE STATUS: Full code * Charges/Coding Visit Charges Inpatient E&M: 35262 Subs Hosp L2
[2024-02-13 10:33] LABS: Magnesium 2.2 mg/dL (1.6-2.6)
[2024-02-13] MEDS: Gabapentin 300 MG Capsule 600 MG PO (10:45)
[2024-02-13] MEDS: Potassium Chloride Oral Tablet 10 MEQ PO (10:45)
[2024-02-13] MEDS: Carvedilol 12.5 MG Tablet PO (10:45)
[2024-02-13] MEDS: APIXABAN 5 MG TABLET PO (10:46)
[2024-02-13] MEDS: Lisinopril 20 MG Tablet PO (10:47)
[2024-02-13] MEDS: Menthol/Lanolin/Calamine/Znox 113 GM Tube 1 APPLIC TOPICAL ×2 (10:48→15:11)
[2024-02-13] MEDS: Nitrofurantoin Macrocrystals 100 MG Capsule PO (10:53)
[2024-02-13] MEDS: Ascorbic Acid 500 MG Tablet 1000 MG PO (14:09)
[2024-02-13] MEDS: 0.9% Normal Saline (1000mL) 1,000 ML 100 ML IV (15:15)
[2024-02-13] MEDS: Potassium Chloride 10mEq/100mL 10 MEQ/100 ML IV.SOLN. 100 MEQ IV BOLUS ×4 (15:15→20:14)
[2024-02-13] MEDS: Mag Hydrox/Al Hydrox/Simeth 30 ML UDC 15 ML PO (19:49)
[2024-02-13] MEDS: Acetaminophen 325 MG Tablet 650 MG PO (20:30)
[2024-02-13 20:53] LABS: Bedside Glucose 129 mg/dL (74-106)
[2024-02-13] MEDS: Ondansetron 4 MG/2 ML Vial IV (20:57)
--- NOTE | 2024-02-13 21:05 | CT_ITS ---
STUDY: CT BRAIN WITHOUT CONTRAST REASON FOR EXAM: Male, 78 years old. New onset AMS Individualized dose optimization techniques were used for this CT. TECHNIQUE: Transaxial CT imaging of the brain was performed without administration of intravenous contrast material. COMPARISON: Study done yesterday FINDINGS: There are calcifications. 2. around the carotid artery. These are noted in the cavernous carotid arteries. Normal calvarium. Normal soft tissues. Old left occipital temporal lobe infarct. There is mild cerebral atrophy with widening of the extra-axial spaces and ventricular dilatation. There are areas of decreased attenuation within the white matter tracts of the supratentorial brain, consistent with microvascular disease changes. Normal basal ganglia and thalami. Normal brainstem. There is mild cerebellar atrophy. There is no intracranial hemorrhage. There are no findings of an acute ischemic infarction. Normal visualized paranasal sinuses. ASPECTS Score for Acute Strokes: 12/22 CT/Brain/Head without Contrast IMPRESSION: There are no acute findings. Chronic involutional changes of the brain. Electronically Signed: Robert Bae MD at 21:31 EST Reading Location ID and State: [facility] / [place] , Service support ,
--- NOTE | 2024-02-13 21:33 | EKG12_ITS ---
Test Reason : ALT MENTAL Blood Pressure : */* mmHG Vent. Rate : 85 BPM Atrial Rate : 85 BPM P-R Int : 204 ms QRS Dur : 84 ms QT Int : 372 ms P-R-T Axes : 44 7 45 degrees QTcB Int : 442 ms Normal sinus rhythm Nonspecific ST abnormality Abnormal ECG When compared with ECG of 12-Feb-2024 11:21, MANUAL COMPARISON REQUIRED DATA IS UNCONFIRMED Confirmed by Ahmet Casas ([id number]), assistant production editor HARJIT MARIN ([id number]) on 02/14/2024 12:20:24 PM Referred By: Confirmed By: Ahmet Casas
--- NOTE | 2024-02-13 21:37 | NURSING ---
Attempted to call all three contacts on patient profile at this time to notify of change. No answer from any of the three contacts.
[2024-02-13 21:47] LABS: Allen Test Positive; Base Excess -4 mmol/L (-2 to +2); Bicarbonate 19.6 mmol/L (22-26); Blood Gas Specimen Type ART; Mode Not entered; O2 Delivery Device Cannula; PO2 85 mmHG (75-100); SITE R Radial; SO2 97 % (95-99); Total Carbon Dioxide 20 mmol/L; pCO2 25.9 mmHg (35-45); pH 7.49 (7.35-7.45)
[2024-02-13] MEDS: Piperacil/Tazobactam 3.375 GM in 0.9% Normal Saline (50mL MB+) 50 ML IV (23:09)
--- NOTE | 2024-02-13 23:27 | NURSING ---
Addendum entered by Lakeisha Hallman 02/13/24 23:30: Addendum to previous: ice packs applied at ~2245. Original Note: Pt groin and underarms packed with ice packs at this time while primary RN notifying physician of temperature of 103F.
[2024-02-13 23:33] LABS: Mean Corp Hgb Conc 33.3 g/dL (32-36); Mean Corpuscular Hgb 29.3 pg (27.0-32.0); Mean Corpuscular Volume 87.8 fL (80-94); Mean Platelet Vol. 10.1 fl (6.2-12.0); Platelet Count 134 K/mm3 (150-450); RBC Distribution Width CV 14.3 % (11.6-14.6); White Blood Count 10.4 K/mm3 (4.4-11.0)
[2024-02-13] MEDS: Acetaminophen 650 MG Suppository RC (23:34)
[2024-02-13] MEDS: Vancomycin HCl 2,000 MG in 0.9% Normal Saline (500mL Bag) 500 ML 250 MG IV (23:50)
[2024-02-13 23:56] LABS: Anion Gap 8 (5-15); BUN 27 mg/dL (7-18); BUN/Creat Ratio 21.6 RATIO (10-20); Calcium,Total 8.8 mg/dL (8.5-10.1); Chloride 112 mmol/L (98-107); Creatinine, Serum 1.25 mg/dL (0.70-1.30); EST Glomerular Filtration Rate 59 mL/min (>60); Est Glom Filt Rate - Afr Amer 72 mL/min (>60); Estimated Creatinine Clearance 60.33 ml/min; Glucose 156 mg/dL (74-106); Potassium 3.1 mmol/L (3.5-5.1); Sodium Level 143 mmol/L (136-145)
[2024-02-14] VITALS (14 sets, daily range): BP systolic 97–139; BP diastolic 55–74; PULSE 68–73; RESP 18–25; TEMP 36.7–37.8; O2SAT 96–99
--- NOTE | 2024-02-14 00:03 | PCM.RX.CS ---
Consult Antibiotic Management Pharmacy has been consulted to manage selected antibiotic: Vancomycin Type of Intervention Type of Consult: New start Labs Labs: Sodium 143 mmol/L (136-145) 02/13/24 23:20 Potassium 3.1 mmol/L (3.5-5.1) L 02/13/24 23:20 Chloride 112 mmol/L (98-107) H 02/13/24 23:20 Carbon Dioxide 23.0 mmol/L (21.0-32.0) 02/13/24 23:20 Anion Gap 8 (5-15) 02/13/24 23:20 BUN 27 mg/dL (7-18) H 02/13/24 23:20 Creatinine 1.25 mg/dL (0.70-1.30) 02/13/24 23:20 Est GFR (MDRD) Af Amer 72 mL/min (>60) 02/13/24 23:20 Est GFR (MDRD) Non-Af 59 mL/min (>60) L 02/13/24 23:20 BUN/Creatinine Ratio 21.6 RATIO (10-20) H 02/13/24 23:20 Glucose 156 mg/dL (74-106) H 02/13/24 23:20 Microbiology Microbiology: Microbiology 02/12/24 11:39 Mucosa - Nose SARS-CoV-2, Influenza & RSV (PCR) - Final Dosing Weight Weight used for dosin.4 kg Estimated Creatinine Clearance Estimated Creatinine Clearance: 75.41 Goal Trough Goal Trough: 15-20 mcg/mL Pharmacy Plan for Drug Dosing Pharmacy Plan for Drug Dosing: Pharmacy Service will continue to monitor and adjust dosing as required. 2000MG LOADING DOSE GIVEN 02/12 @ 2350. START 1500MG Q12H AND DRAW TROUGH PRIOR TO 4TH DOSE Follow-Up Labs Follow-Up Labs: Trough: Vancomycin Date/Time Labs Ordered Labs to be done on [date and time ordered]: 02/14 @ 1131
[2024-02-14 00:08] LABS: Lactic Acid 2.1 mmol/L (0.4-1.9)
--- NOTE | 2024-02-14 00:22 | CT_ITS ---
STUDY: CT ABDOMEN AND PELVIS WITH CONTRAST REASON FOR EXAM: Male, 78 years old. r/o intraabdominal infxn RADIATION DOSAGE (If Supplied By Facility): CTDIvol = ( 20.81 ) mGy, DLP = ( 1159.62 ) mGycm TECHNIQUE: IV 100mL Isovue-370 was administered. Transaxial images were obtained from the dome of the diaphragm to the symphysis pubis in the portal venous phase. Multiplanar coronal and sagittal images were reformatted. Individualized Dose Optimization Techniques Were Used For This CT. COMPARISON: Prior study dated: 07/21/2023 FINDINGS: LOWER CHEST: Mild bibasilar atelectasis. No cardiomegaly. Trace pericardial effusion. Coronary artery calcifications are seen. LIVER: The liver is normal in size, shape, and attenuation. Cyst at the dome of the right lobe. Enhancing lesion measuring 3.9 cm in segment 6. GALLBLADDER AND BILIARY TREE: The gallbladder is contracted. No gallstones. No gallbladder wall thickening or edema. No pericholecystic fluid. No intra- or extrahepatic biliary ductal dilation. PANCREAS: No focal cystic or solid mass. SPLEEN: Normal size without focal cystic or solid mass. ADRENAL GLANDS: No nodules. KIDNEYS AND URETERS: Normal renal size and position. No hydronephrosis. Simple cysts are seen bilaterally. No specific follow-up recommended. Right lower pole renal calculus measures 1.6 x 0.7 cm. PERITONEUM: No ascites or free air. No other fluid collection. BOWEL: The stomach is unremarkable. Normal caliber small bowel. There is no obstruction. No colonic wall thickening or inflammation. No evidence of acute appendicitis. LYMPH NODES: No enlarged mesenteric or retroperitoneal lymph nodes. VESSELS: The aorta is normal in caliber with mild atherosclerotic calcification. URINARY BLADDER: Partially distended bladder with trabeculated appearance of the wall which could be associated with outlet obstruction. REPRODUCTIVE ORGANS: No pelvic masses. ABDOMINAL WALL: Tiny umbilical hernia. BONES: No lytic or blastic abnormality. Moderate degenerative change throughout the spine. Likely prior healed right femoral neck fracture. Mild degenerative changes of both hips. CT/Abdomen/Pelvis W IV Cont ONLY IMPRESSION: No acute finding in the abdomen or pelvis. No acute inflammatory change. Trabeculated bladder wall likely associated with outlet obstruction. Enhancing right lobe liver lesion. This is not described on prior reports. This could be an AVM given the proximity KV vasculature. Consider nonemergent MRI evaluation. Electronically Signed: Lucas Roberts MD at 2:07 EST ,
[2024-02-14] MEDS: Lactated Ringers 1,000 ML 999 ML IV ×2 (01:58→05:18)
--- NOTE | 2024-02-14 03:07 | PCM.HOSP.N ---
Hospitalist Note Notified by nursing staff this evening around 8:30 PM that patient had a significant change in mentation. He was alert and oriented x 3 earlier today and asking if he could go home. Nurse noted that this evening he became more somnolent and was only able to tell him name and birthday. I went to evaluate patient at bedside. Patient sitting up in bed but leaning forward somewhat slumped over and appeared fatigued and somewhat diaphoretic. He was not able to answer any questions appropriately for me. It appeared that he tried to mumble some answers but they were nonsensical. I asked him to squeeze my hands on exam but he would not do this. On a brief chart review patient presented with syncope and orthostatic hypotension. He had negative CT head in the ED. Infectious workup was largely negative but patient remained orthostatic positive over the past few days. He notably is a paraplegic and it appears he has some degree of positive orthostasis at baseline. He was being treated with Macrobid for possible UTI, though UA showed only 100 leukocyte esterase but negative nitrates and 0 bacteria. He was not given any new medications today. On exam his heart rate and blood pressure were stable and he was satting well on room air. However he had a fever to 101.7F. Given this mental status change, stat CT head without contrast and ABG were ordered. CT head was negative. ABG showed pH 7.49, pCO2 25. He remained altered and despite being given Tylenol 650 mg his fever worsened to 103.0F. Nursing noted he was not safe to take p.o. medications so he was given another 650 mg of Tylenol rectally. Stat labs were ordered. CBC showed worsened white count from 5.8 to 10.4. Creatinine bumped up slightly from 1.00 to 1.25. Lactic acid was 2.1. Patient also began to drop his blood pressure into the 90s over 60s. Maintenance IV fluids were being run for him; gave the remainder of that bag as a bolus for 1 L total, and ordered a second 1 L LR bolus to be given. Also gave doses of IV vancomycin and Zosyn at that time. Given no obvious source of infection, CT abdomen pelvis with IV contrast was obtained. This showed no acute finding in the abdomen or pelvis. It did show a trabeculated bladder wall likely associated with outlet obstruction, but patient notably has had good urine output. Will continue to treat with IV vancomycin and Zosyn for now. Follow-up a.m. labs. Low suspicion for meningitis but if patient's mentation does not improve, can consider further workup and possibly empiric treatment for meningitis. Will continue to follow closely.
[2024-02-14 03:31] LABS: Reflex Lactate? Y
[2024-02-14 04:17] LABS: Hematocrit 33.8 % (40-54); Hemoglobin 11.1 g/dL (13.0-16.5); Mean Corp Hgb Conc 32.8 g/dL (32-36); Mean Corpuscular Hgb 29.3 pg (27.0-32.0); Mean Corpuscular Volume 89.2 fL (80-94); Mean Platelet Vol. 10.2 fl (6.2-12.0); POSITIVE DIFFERENTIAL YES; POSITIVE MORPHOLOGY YES; Platelet Count 141 K/mm3 (150-450); RBC Distribution Width CV 14.6 % (11.6-14.6); RBC Distribution Width SD 47.8 fl (35.1-43.9); Red Blood Count 3.79 M/mm3 (4.6-6.2); White Blood Count 18.4 K/mm3 (4.4-11.0)
[2024-02-14 04:37] LABS: Anion Gap 8 (5-15); BUN 27 mg/dL (7-18); BUN/Creat Ratio 20.3 RATIO (10-20); Calcium,Total 8.8 mg/dL (8.5-10.1); Chloride 112 mmol/L (98-107); Creatinine, Serum 1.33 mg/dL (0.70-1.30); EST Glomerular Filtration Rate 55 mL/min (>60); Est Glom Filt Rate - Afr Amer 67 mL/min (>60); Glucose 155 mg/dL (74-106); Potassium 3.5 mmol/L (3.5-5.1); Sodium Level 142 mmol/L (136-145)
[2024-02-14 04:56] LABS: Lactic Acid 2.6 mmol/L (0.4-1.9)
[2024-02-14 05:03] LABS: Differential Indicated MANUAL DIFF
[2024-02-14 05:06] LABS: Monocyte 4 % (0-10); Neutrophil-Band 17 % (0-5); Neutrophil-Segmented 79 % (47-70); Total Cells Counted 100 (MANUAL DIFF)
[2024-02-14 05:07] LABS: Platelet Estimate ADEQUATE (ADEQ)
[2024-02-14 05:08] LABS: Anisocytosis 1+; Ovalocyte 1+; Polychromasia 1+
[2024-02-14 05:10] LABS: Absolute Neutrophil Count 17.7 X10^3/uL (2.0-7.7)
[2024-02-14] MEDS: Piperacil/Tazobactam 3.375 GM in 0.9% Normal Saline (50mL MB+) 50 ML IV ×3 (05:18→22:09)
[2024-02-14] MEDS: 0.9% Saline Lock 10 ML Syringe IV (05:18)
--- NOTE | 2024-02-14 06:20 | SEPSISATNOTE ---
Sepsis Attestation Sepsis Alert: Yes Sepsis Attestation: Agree w/Sepsis Date exam was performed: 02/14/24 Time exam was performed: 02:00 Possible Source of Sepsis: Unknown Sepsis Organ Dysfunction Criteria Present: SBP < 90 mmHg or MAP < 65 mmHg, Lactic Acid > 2 mmol/L and New/Unexplained change in mental status Fluid Resuscitation Fluid resuscitation indicated?: Yes Fluid Resuscitation ordered: 30 ml/kg fluid bolus ordered Amount of fluid ordered: 3,000 Sepsis Note Date exam was performed: 02/14/24 Time exam was performed: 06:15 Sepsis Attestation: Sepsis re-evaluation was performed Response to fluids: Fluid responsive hypotension
--- NOTE | 2024-02-14 06:30 | NURSING ---
Pt anirudh Mcfarland updated at this time.
--- NOTE | 2024-02-14 07:03 | PCM.RX.CS ---
Consult Antibiotic Management Pharmacy has been consulted to manage selected antibiotic: Vancomycin Type of Intervention Type of Consult: Follow-up Labs Labs: Sodium 142 mmol/L (136-145) 02/14/24 04:05 Potassium 3.5 mmol/L (3.5-5.1) 02/14/24 04:05 Chloride 112 mmol/L (98-107) H 02/14/24 04:05 Carbon Dioxide 22.0 mmol/L (21.0-32.0) 02/14/24 04:05 Anion Gap 8 (5-15) 02/14/24 04:05 BUN 27 mg/dL (7-18) H 02/14/24 04:05 Creatinine 1.33 mg/dL (0.70-1.30) H 02/14/24 04:05 Est GFR (MDRD) Af Amer 67 mL/min (>60) 02/14/24 04:05 Est GFR (MDRD) Non-Af 55 mL/min (>60) L 02/14/24 04:05 BUN/Creatinine Ratio 20.3 RATIO (10-20) H 02/14/24 04:05 Glucose 155 mg/dL (74-106) H 02/14/24 04:05 Microbiology Microbiology: Microbiology 02/12/24 11:39 Mucosa - Nose SARS-CoV-2, Influenza & RSV (PCR) - Final Pharmacy Plan for Drug Dosing Pharmacy Plan for Drug Dosing: DAILY ASSESSMENT Current Vancomycin Dose: 1500MG Q12 Number of Doses Received: 1 - 2000MG LOADING DOSE Current Renal Function: SCR 1.33 MG/DL, CRCL 56.7 ML/MIN Renal Function Trend: WORSENED Lab/Micro: BLOOD CX PENDING Any Change in Vanc Plan: Yes, dose changed to 1000mg Q12 due to increased SCr. Pending Level: 02/15/24 @ 1130 Pharmacy Service will continue to monitor and adjust dosing as required.
--- NOTE | 2024-02-14 09:06 | RAD_ITS ---
STUDY: X-RAY CHEST REASON FOR EXAM: Male, 78 years old. FEVER TECHNIQUE: Single AP portable view of the chest. COMPARISON: Comparison is made with prior study of February 12, 2024. FINDINGS: EKG electrodes are seen. The lungs are clear and expanded. There is no demonstrated pleural abnormality. There is moderate cardiac enlargement. A left-sided dual-chamber pacemaker is seen. Normal mediastinum and aaliyah. Normal visualized pulmonary arteries. There is atherosclerotic calcification of the aortic arch with tortuosity. There are degenerative changes of the visualized thoracic spine. Prior fusion of the lower cervical spine. There is no demonstrated abnormality of the visualized soft tissue structures of the upper abdomen. RAD/Chest 1 View (Portable) IMPRESSION: Cardiomegaly. No acute abnormality is seen. Electronically Signed: Umang Guerra MD at 9:45 EST ,
[2024-02-14] MEDS: APIXABAN 5 MG TABLET PO ×2 (09:30→22:09)
[2024-02-14] MEDS: Gabapentin 300 MG Capsule 600 MG PO ×2 (09:33→22:09)
--- NOTE | 2024-02-14 11:05 | CM.UR ---
PRUDENCIO HERMAN Face to Face with patient for initial transition planning/care coordination assessment. RN VIRGIL introduced self and role at [facility]. Patient lying in bed, sleeping, at bedside. , Nuzhat, willing to participate in assessment and is able to answer all questions appropriately. Care providers, pharmacy, and demographics verified. Strata: 3 PCP: Kisha Specialists: [facility] Preferred Pharmacy: [facility] Insurance: [facility], [facility] supplemental Prescription Benefit: none Living Will/HPOA: yes, Nuzhat Barron LNOK: Living Arrangements: Patient lives with in a single story home with ramp to enter the home. states she assists patient with ADLs. Transportation: DME/HHC: Patient has shower chair, raised toilet, grab bars, walker, wheelchair, and power wheelchair. Patient has been TCU in the past. Patient has had [facility] HHC in the past. Patient is currently attending outpatient therapy at [facility]. wishes for patient to discharge home, denies need for home health at this time, will monitor progress with therapy. Patient states he has no further needs or concerns at this time. CM to follow for discharge planning needs that may arise. Disposition Plan: Patient to discharge home with family support and follow-up plans in place. Will monitor for HHC at discharge. Carmen GOVEA, RN, CM
[2024-02-14] MEDS: Vancomycin IV 1,000 MG/200 ML BAG 200 MG IV (11:41)
[2024-02-14] MEDS: Ascorbic Acid 500 MG Tablet 1000 MG PO (11:41)
[2024-02-14] MEDS: Menthol/Lanolin/Calamine/Znox 113 GM Tube 1 APPLIC TOPICAL (13:20)
--- NOTE | 2024-02-14 14:41 | MRI_ITS ---
EXAM: MR ABDOMEN WITHOUT AND WITH INTRAVENOUS CONTRAST CLINICAL INDICATION: RUQ pain, abnormal CT TECHNIQUE: Multiplanar and multisequence MR images of the abdomen without and with intravenous contrast. CONTRAST: 21ML IV CLARISCAN COMPARISON: CT abdomen and pelvis 02/14/2024 and 07/21/2023 FINDINGS: LOWER THORAX: Minor bibasilar atelectasis. Pericardial effusion noted. No pleural effusion. LIVER: Stable 2.5 cm cyst along the dome of the liver, hepatic segment 8. Prominent vessels within hepatic segment 7 again noted suggestive of a shunt between the portal and hepatic vein. Appearance unchanged from prior exam. GALLBLADDER AND BILE DUCTS: Contracted gallbladder containing multiple small stones. No intra- or extrahepatic biliary ductal dilation. PANCREAS: Normal. No focal cystic or solid mass. SPLEEN: Spleen is mildly enlarged measuring 14.5 cm in length. ADRENALS: Normal. No nodules. KIDNEYS AND URETERS: Nonenhancing bilateral renal cysts. No specific follow-up indicated. Normal renal size and position. INTRAPERITONEAL SPACE: Normal. No ascites or other fluid collection. No free air. VASCULATURE: Normal. Abdominal aorta is non-dilated. LYMPH NODES: No enlarged lymph nodes. MRI/MRI Abd WITH and W/O Contrast IMPRESSION: 1. Stable simple appearing 2.5 cm cyst along the dome of the liver, hepatic segment 8. 2. Prominent vessels within hepatic segment 7 again noted suggestive of a shunt between the portal and hepatic veins. Appearance unchanged from prior exam. 3. Contracted gallbladder containing multiple small stones. 4. Spleen is mildly enlarged measuring 14.5 cm in length. Electronically Signed: Walt Dodson MD at 16:59 EST ,
--- NOTE | 2024-02-14 14:41 | PCM.CONS.GEN ---
Assessment & Plan Assessment/Plan (1) Syncope: (2) Fever: (3) Sepsis: PLAN: fever, lactic acidosis, leukocytosis. Unclear source. Bcx and Ucx pending. Covid neg. CT showed enhancing liver lesion and c.o RUQ pain. Will order MRI liver. Cont vanc/zosyn. Will follow, thank you HPI Consult Data Date of Consult: 02/14/24 HPI Narrative Reason for Consultation: fever HPI Narrative: DANNY AQUINO, is a 78 M with h/o stroke, paraplegia, was on macrobid for uti for 3 days, developed acute onset weakness, RUQ pain, confusion. Admitted here 02/11, then last night new fever to 103, put on vanc/zosyn. Still some RUQ pain. Full ROS performed and neg except as noted above. 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 Depression Hypertension Atrial fibrillation Anterior communicating artery aneurysm Atrial fibrillation History of DVT (deep vein thrombosis) AAA (abdominal aortic aneurysm) without rupture Sick sinus syndrome Family history of hypertension History of spinal cord injury Paraplegia Premature ventricular contractions BPH (benign prostatic hypertrophy) Depression Cervical spinal stenosis Spinal cord injury Neurogenic bladder Degenerative joint disease (DJD) of lumbar spine Anemia Central cord syndrome Subluxation of C6-C7 cervical vertebrae 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.9) Home Medications ?Medication ?Instructions ?Recorded ?Last Taken ?Type lisinopril 20 mg tablet 20 mg PO DAILY blood pressure 06/24/15 02/11/24 History ascorbic acid (vitamin C) 500 mg 1,000 mg PO LUNCH supplement 08/17/21 02/11/24 History tablet tamsulosin 0.4 mg capsule 0.4 mg PO QHS Urine retention 30 09/03/21 02/11/24 Rx days #30 caps citalopram 20 mg tablet 20 mg PO QHS depression 12/04/21 02/11/24 History gabapentin 300 mg capsule 600 mg PO BID Nerve pain 12/04/21 02/11/24 History potassium chloride 10 mEq 10 meq PO DAILY supplement 05/19/22 02/11/24 History tablet,extended release(part/cryst) apixaban 5 mg tablet (Eliquis) 5 mg PO BID blood thinner #180 tabs 02/02/23 02/11/24 Rx carvedilol 12.5 mg tablet 12.5 mg PO BID BP 02/12/24 02/11/24 History cholecalciferol (vitamin D3) 25 25 mcg PO DAILY 02/12/24 Unknown History mcg (1,000 unit) capsule hydrochlorothiazide 25 mg tablet 25 mg PO QHS bp 02/12/24 02/11/24 History nitrofurantoin 1 cap PO BID 02/12/24 02/12/24 History monohydrate/macrocrystals 100 mg capsule vitamin E 180 mg PO DAILY supplement 02/12/24 02/11/24 History docusate sodium 283 mg/5 mL enema 283 mg MN BID constipation 02/13/24 Unknown History (Enemeez) Allergy/AdvReac Type Severity Reaction Status Date / Time ceftriaxone Allergy Rash Verified 02/12/24 11:20 ciprofloxacin (From Cipro) Allergy Hives Verified 02/12/24 11:20 sulfamethoxazole (From Allergy PT UNSURE Verified 02/12/24 11:20 Bactrim) OF REACTION trimethoprim (From Bactrim) Allergy PT UNSURE Verified 02/12/24 11:20 OF REACTION Family History Mother Breast cancer Cancer Brain cancer Sister Diabetes Hypertension CHF (congestive heart failure) Kidney disease Sister CHF (congestive heart failure) Cardiac defibrillator in situ Other Family history of hypertension Surgical History History of neck surgery History of permanent cardiac pacemaker placement S/P cervical spinal fusion Social History household members: spouse Smoking Status: Never smoker alcohol intake: current alcohol intake frequency: holidays/special occasions only Alcohol type: wine substance use type: does not use caffeine: Yes Type: coffee Number of servings: 1 what type of physical activity do you participate in: other details: Health point frequency: 1-2 times per week duration: 45-60 minutes/day seatbelt use: always do you feel safe at home: Yes Physical Exam Const alert and no apparent distress Constitutional Narrative: oriented x1 General Appearance: cooperative HEENT normocephalic and head/scalp atraumatic Eyes PERRL and EOMs intact bilaterally Neck supple and No nodes Resp normal air movement and clear to auscultation bilaterally Cardio regular rate and regular rhythm GI soft to palpation, non-tender and non-distended Extremity General Extremity: edema Skin no rashes or lesions noted Neuro Neuro Narrative: some dysarthria Lab / Micro Data Attestation: I reviewed the patient's lab results. 02/14/24 04:05 02/14/24 04:05 Labs: Laboratory Results - last 24 hr 02/13/24 20:34: POC Glucose 129 H 02/13/24 23:20: WBC 10.4, RBC 4.10 L, Hgb 12.0 L, Hct 36.0 L, MCV 87.8, MCH 29.3, MCHC 33.3, RDW Std Deviation 46.0 H, RDW Coeff of Donna 14.3, Plt Count 134 L, MPV 10.1, Sodium 143, Potassium 3.1 L, Chloride 112 H, Carbon Dioxide 23.0, Anion Gap 8, BUN 27 H, Creatinine 1.25, Estim Creat Clear Calc 60.33, Est GFR (MDRD) Af Amer 72, Est GFR (MDRD) Non-Af 59 L, BUN/Creatinine Ratio 21.6 H, Glucose 156 H, Lactic Acid 2.1 H*, Calcium 8.8 02/14/24 04:05: WBC 18.4 H, RBC 3.79 L, Hgb 11.1 L, Hct 33.8 L, MCV 89.2, MCH 29.3, MCHC 32.8, RDW Std Deviation 47.8 H, RDW Coeff of Donna 14.6, Plt Count 141 L, MPV 10.2, Neut % (Auto) Not Reportable, Absolute Neuts (auto) 17.7 H, Absolute Lymphs (auto) 0.00 L, Total Counted 100, Neutrophils % (Manual) 79 H, Band Neutrophils % 17 H, Monocytes % (Manual) 4, Platelet Estimate ADEQUATE, Polychromasia 1+, Anisocytosis 1+, Ovalocytes 1+, Sodium 142, Potassium 3.5, Chloride 112 H, Carbon Dioxide 22.0, Anion Gap 8, BUN 27 H, Creatinine 1.33 H, Estim Creat Clear Calc 56.70, Est GFR (MDRD) Af Amer 67, Est GFR (MDRD) Non-Af 55 L, BUN/Creatinine Ratio 20.3 H, Glucose 155 H, Lactic Acid 2.6 H*, Calcium 8.8 ABG Data ABG results: ABG 02/13/24 21:44 Specimen Type ART Sample Site R Radial pH 7.49 H Bicarbonate Actual 19.6 L Total CO2 20 Base Excess -4 L O2 Saturation 97 O2 % 2.0 ABG pCO2 25.9 L ABG pO2 85 Trey Test Positive O2 Delivery Device Cannula Vent Mode Not entered Imaging Radiology Impression Echocardiogram 02/12/24 17:13 Interpretation Summary The estimated ejection fraction is 65 %. No evidence for diastolic dysfunction. The left atrium is mildly enlarged. Mild aortic stenosis. Ordering Physician: Sanjuanita Karimi Referring Physician: MALLORY MCPHERSON Performed By: Donya Cash and Student Brain CT 02/13/24 21:05 IMPRESSION: There are no acute findings. Chronic involutional changes of the brain. Electronically Signed: Robert Bae MD at 21:31 EST , Abdomen/Pelvis CT 02/14/24 00:22 IMPRESSION: No acute finding in the abdomen or pelvis. No acute inflammatory change. Trabeculated bladder wall likely associated with outlet obstruction. Enhancing right lobe liver lesion. This is not described on prior reports. This could be an AVM given the proximity KV vasculature. Consider nonemergent MRI evaluation. Electronically Signed: Lucas Roberts MD at 2:07 EST , Chest X-Ray 02/14/24 09:06 IMPRESSION: Cardiomegaly. No acute abnormality is seen. Electronically Signed: Umang Guerra MD at 9:45 EST ,
--- NOTE | 2024-02-14 16:24 | CHAPLAIN ---
Type of Pastoral Visit _x__ Initial Visit ___ Follow-up Visit ___ On-call Visit ___ General Patient Visit ___ Spiritual Assessment ___ Family Conference ___ Bereavement ___ Rapid Response ___ Code Blue ___ Other (describe below) Pastoral Care Referral From _x__ Patient ___ Family ___ Nurse ___ Physician ___ Paper Feeder ___ Fare Register Repairer ___ Other (describe below) Sacrament/Intervention _x__ Active listening ___ Anointing ___ Congregation ___ Bereavement ___ Communion _x__ Angie exploration ___ ___ Life review _x__ Prayer ___ Reconciliation ___ Sacrament of Sick _x__ Supportive presence ___ Wedding ___ Other (describe below) Pastoral Comments patient is wrapped up in blankets and states how cold he is; more blankets are found and the thermostat is adjusted for more comfort; pt is talkative and has a little bit of issue with speaking clearly since his stroke; spouse is with him at all the time; pt talks about his angie and that he is confident in God's provision and care; pt shares that he has a goal to live to be 81 and then go to [facility]; presence and prayer given
--- NOTE | 2024-02-14 16:45 | PN.HOSP_ITS ---
Reason for Visit Reason for Visit: Diagnoses Sepsis, unspecified organism (02/13/24) Fever, unspecified (02/13/24) Syncope and collapse (02/13/24) Subjective Subjective Patient was seen and examined today, there was a note last night which showed the patient was running 101.7 temperature, chest x-ray performed this morning showed no acute abnormality, patient's white count was elevated this morning. UA was not obtained last night, blood cultures were. I had infectious diseases see the patient due to concerns of infection. Patient has had urinary tract infections before in the past. I talked briefly with his who was in the room at the time my examination today. Objective Data Objective Data Vital Signs: Vital Signs Temp Pulse Resp BP Pulse Ox O2 Del Method O2 Flow Rate 98.0 F 70 19 H 139/71 H 96 Room Air 2 02/14/24 12:00 02/14/24 12:00 02/14/24 12:00 02/14/24 12:00 02/14/24 13:25 02/14/24 13:25 02/14/24 08:00 Oxygen Flow Rate (L/min) 2 Oxygen Delivery Method Room Air Weight: 109.4 kg Body Mass Index (BMI) 35.6 Intake & Output: Intake and Output for Last 24 Hours 02/12/24 02/13/24 02/14/24 23:59 23:59 23:59 Intake Total 1950 / 2200 3730 / 3730 4302 / 4302 Output Total 500 / 1100 3000 / 4000 1900 / 1900 Balance 1450 / 1100 730 / -270 2402 / 2402 Lab / Micro Data 02/14/24 04:05 02/14/24 04:05 Labs: Laboratory Results - last 24 hr 02/13/24 20:34: POC Glucose 129 H 02/13/24 23:20: WBC 10.4, RBC 4.10 L, Hgb 12.0 L, Hct 36.0 L, MCV 87.8, MCH 29.3, MCHC 33.3, RDW Std Deviation 46.0 H, RDW Coeff of Donna 14.3, Plt Count 134 L, MPV 10.1, Sodium 143, Potassium 3.1 L, Chloride 112 H, Carbon Dioxide 23.0, Anion Gap 8, BUN 27 H, Creatinine 1.25, Estim Creat Clear Calc 60.33, Est GFR (MDRD) Af Amer 72, Est GFR (MDRD) Non-Af 59 L, BUN/Creatinine Ratio 21.6 H, G lucose 156 H, Lactic Acid 2.1 H*, Calcium 8.8 02/14/24 04:05: WBC 18.4 H, RBC 3.79 L, Hgb 11.1 L, Hct 33.8 L, MCV 89.2, MCH 29.3, MCHC 32.8, RDW Std Deviation 47.8 H, RDW Coeff of Donna 14.6, Plt Count 141 L, MPV 10.2, Neut % (Auto) Not Reportable, Absolute Neuts (auto) 17.7 H, A bsolute Lymphs (auto) 0.00 L, Total Counted 100, Neutrophils % (Manual) 79 H, B and Neutrophils % 17 H, Monocytes % (Manual) 4, Platelet Estimate ADEQUATE, Polychromasia 1+, Anisocytosis 1+, Ovalocytes 1+, Sodium 142, Potassium 3.5, C hloride 112 H, Carbon Dioxide 22.0, Anion Gap 8, BUN 27 H, Creatinine 1.33 H, Estim Creat Clear Calc 56.70, Est GFR (MDRD) Af Amer 67, Est GFR (MDRD) Non-Af 55 L, BUN/Creatinine Ratio 20.3 H, Glucose 155 H, Lactic Acid 2.6 H*, Calcium 8.8 Micro: Microbiology 02/12/24 11:39 Mucosa - Nose SARS-CoV-2, Influenza & RSV (PCR) - Final ABG Data ABG results: ABG 02/13/24 21:44 Specimen Type ART Sample Site R Radial pH 7.49 H Bicarbonate Actual 19.6 L Total CO2 20 Base Excess -4 L O2 Saturation 97 O2 % 2.0 ABG pCO2 25.9 L ABG pO2 85 Trey Test Positive O2 Delivery Device Cannula Vent Mode Not entered Radiography Diagnostic Testing: Radiology Impression Echocardiogram 02/12/24 17:13 Interpretation Summary The estimated ejection fraction is 65 %. No evidence for diastolic dysfunction. The left atrium is mildly enlarged. Mild aortic stenosis. Ordering Physician: Sanjuanita Karimi Referring Physician: MALLORY MCPHERSON Performed By: Donya Cash and Student Brain CT 02/13/24 21:05 IMPRESSION: There are no acute findings. Chronic involutional changes of the brain. Electronically Signed: Robert Bae MD at 21:31 EST , Abdomen/Pelvis CT 02/14/24 00:22 IMPRESSION: No acute finding in the abdomen or pelvis. No acute inflammatory change. Trabeculated bladder wall likely associated with outlet obstruction. Enhancing right lobe liver lesion. This is not described on prior reports. This could be an AVM given the proximity KV vasculature. Consider nonemergent MRI evaluation. Electronically Signed: Lucas Roberts MD at 2:07 EST , Chest X-Ray 02/14/24 09:06 IMPRESSION: Cardiomegaly. No acute abnormality is seen. Electronically Signed: Umang Guerra MD at 9:45 EST , Physical Exam Const alert, oriented x3 and no apparent distress General Appearance: cooperative, well kempt and well developed Orientation / Consciousness: awake, oriented to person, oriented to place and oriented to time HEENT normocephalic, head/scalp atraumatic and moist oral mucous membranes Eyes PERRL, EOMs intact bilaterally and conjunctivae normal Neck supple, no JVD, thyroid normal and no carotid bruits General: trachea midline Resp normal respiratory effort, no retractions, no use of accessory muscles and clear to auscultation bilaterally Auscultation: Negative for rales, rhonchi or wheezes Cardio regular rate, regular rhythm, S1 normal heart sound, S2 normal heart sound, no murmurs, no rub and no gallops GI normal to inspection, nondistended, normoactive bowel sounds, soft to palpation, non-tender and non-distended Extremity no clubbing, cyanosis or edema Skin no rashes or lesions noted General Skin Exam: no breakdown Neuro oriented x3 and CN's II-XII intact bilaterally Neuro Narrative: Patient has bilateral lower extremity weakness which is chronic in nature Sensorium / Orientation: awake and alert Speech: speech normal Psych affect normal Assessment & Plan Assessment/Plan (1) Syncope: PLAN: Plan 1. Fever of unknown origin-sepsis should be ruled out, patient is currently on Zosyn and vancomycin, infectious diseases has recommended continuing antibiotics for now and waiting for blood culture to result. #2 syncope-etiology unclear, possibly secondary to vasovagal syncope, PT and OT will continue to work with patient, patient's echocardiogram is unremarkable today #3 hypokalemia-corrected at this time, labs will be rechecked #4 acute kidney injury-patient will be given IV fluids and labs will be rechecked #5 paroxysmal [id number] is on apixaban and carvedilol Total clinical time spent by myself addressing the patient's medical issues, reviewing all of his data, and collaborating with patient's care team: 35 minutes Charges/Coding Visit Charges Inpatient E&M: 92968 Subs Hosp L2
[2024-02-14] MEDS: 0.9% Normal Saline (1000mL) 1,000 ML 75 ML IV (17:07)
[2024-02-14] MEDS: Citalopram 20 MG Tablet PO (22:09)
[2024-02-14] MEDS: Tamsulosin HCl 0.4 MG Capsule PO (22:09)
[2024-02-15] VITALS (11 sets, daily range): BP systolic 121–181; BP diastolic 57–88; PULSE 58–80; RESP 16–20; TEMP 36.2–37.1; O2SAT 92–97
[2024-02-15] MEDS: Vancomycin IV 1,000 MG/200 ML BAG 200 MG IV ×2 (00:02→14:42)
[2024-02-15] MEDS: Piperacil/Tazobactam 3.375 GM in 0.9% Normal Saline (50mL MB+) 50 ML IV ×3 (05:40→23:22)
[2024-02-15 06:10] LABS: Mucous, Urine 0 SEEN /hpf (<or=2+); Squamous Epithelial Cells - UA 0 SEEN /hpf (0-5)
[2024-02-15 06:25] LABS: Absolute Lymphocyte Count 0.86 X10^3/uL (0.83-4.51); Absolute Neutrophil Count 8.9 X10^3/uL (2.0-7.7); Basophil# 0.04 X10^3/uL; Basophil% 0.4 % (0-1); Eosinophils% 0.9 % (0-5); Hematocrit 32.8 % (40-54); Hemoglobin 10.3 g/dL (13.0-16.5); Lymphocyte # 0.86 X10^3/ul (0.83-4.51); Lymphocyte % 8.1 % (19-41); Mean Corp Hgb Conc 31.4 g/dL (32-36); Mean Corpuscular Hgb 28.5 pg (27.0-32.0); Mean Corpuscular Volume 90.9 fL (80-94); Mean Platelet Vol. 10.8 fl (6.2-12.0); Monocyte# 0.63 X10^3/uL; Monocyte% 5.9 % (0-10); NRBC Flagged by Analyzer 0 % (0-5); Neutrophil # 8.92 X10^3/uL (2.7-7.7); Neutrophil % 83.9 % (47-70); Platelet Count 116 K/mm3 (150-450); RBC Distribution Width CV 15.2 % (11.6-14.6); RBC Distribution Width SD 50.5 fl (35.1-43.9); Red Blood Count 3.61 M/mm3 (4.6-6.2); White Blood Count 10.6 K/mm3 (4.4-11.0)
[2024-02-15 06:25] LABS: Color, Urine Yellow (Yellow); Glucose, Dipstick Normal (Normal); Ketone-Dipstick Negative (Negative); Leukocyte Esterase-Dipstick 500 /ul (Negative); Nitrite-Dipstick Negative (Negative); Occult Blood-Urine 250 /ul (Negative); Protein-Dipstick 30 mg/dl (Negative); Urine Bilirubin Dipstick Negative (Negative); Urine Clarity Sl. Cloudy (Clear); Urine Urobilinogen Normal (Normal)
[2024-02-15] MEDS: 0.9% Normal Saline (1000mL) 1,000 ML 75 ML IV (06:33)
[2024-02-15 06:55] LABS: Anion Gap 3 (5-15); BUN 25 mg/dL (7-18); BUN/Creat Ratio 18.4 RATIO (10-20); Calcium,Total 8.5 mg/dL (8.5-10.1); Chloride 112 mmol/L (98-107); Creatinine, Serum 1.36 mg/dL (0.70-1.30); EST Glomerular Filtration Rate 54 mL/min (>60); Est Glom Filt Rate - Afr Amer 65 mL/min (>60); Estimated Creatinine Clearance 55.45 ml/min; Glucose 108 mg/dL (74-106); Potassium 3.5 mmol/L (3.5-5.1); Sodium Level 140 mmol/L (136-145)
[2024-02-15 06:59] LABS: Bacteria RARE /hpf (None Seen); Red Blood Cells-Urine 10-25 SEEN /hpf (0-5); White Blood Cells 50-100 SEEN /hpf (0-5)
[2024-02-15] MEDS: Gabapentin 300 MG Capsule 600 MG PO ×2 (09:17→23:18)
[2024-02-15] MEDS: APIXABAN 5 MG TABLET PO ×2 (09:17→23:11)
[2024-02-15] MEDS: Menthol/Lanolin/Calamine/Znox 113 GM Tube 1 APPLIC TOPICAL ×3 (09:18→23:07)
--- NOTE | 2024-02-15 10:40 | PCM.PN.ID ---
Physical Exam Narrative Feeling better, no fever, no abd pain Const alert and no apparent distress Resp normal air movement and clear to auscultation bilaterally Cardio regular rate and regular rhythm GI soft to palpation, non-tender and non-distended Skin no rashes or lesions noted ID ID: Route of nutrition/ use of supplements: [] Nutritional Intake: [] IV Site: [] Mejía Catheter: [] Assessment & Plan Assessment/Plan (1) Syncope: (2) Fever: (3) Sepsis: PLAN: fever, lactic acidosis, leukocytosis; now resolved. Unclear source. Bcx and Ucx pending. Covid neg. CT showed enhancing liver lesion and c.o RUQ pain. Pending MRI liver. Cont vanc/zosyn. Will follow, d/w Dr. Yañez
--- NOTE | 2024-02-15 11:03 | CASEMGMT ---
Discharge Planning A list of?SNF providers including quality and resource use data and consistent with the patient's preferred geographic region, medical needs, and insurance network was created in [employer] Guide.? This list was provided to the RN VIRGIL. Araseli Bright, Discharge Planning Asst.
[2024-02-15] MEDS: Ascorbic Acid 500 MG Tablet 1000 MG PO (12:35)
[2024-02-15] MEDS: 0.9% Saline Lock 10 ML Syringe IV ×2 (12:35→14:42)
[2024-02-15 14:14] LABS: Vancomycin, Trough Level 15.9 ug/mL (5.0-15.0)
--- NOTE | 2024-02-15 14:22 | PCM.RX.CS ---
Consult Antibiotic Management Pharmacy has been consulted to manage selected antibiotic: Vancomycin Type of Intervention Type of Consult: Follow-up Suspected Infection Suspected Infection: Sepsis Prior Doses of Antibiotics Prior Doses of Antibiotics Received/Current Regimen: Vancomycin 1000 mg Q12H last dose given 02/14 @ 0002 Labs Labs: Sodium 140 mmol/L (136-145) 02/15/24 05:49 Potassium 3.5 mmol/L (3.5-5.1) 02/15/24 05:49 Chloride 112 mmol/L (98-107) H 02/15/24 05:49 Carbon Dioxide 26.0 mmol/L (21.0-32.0) 02/15/24 05:49 Anion Gap 3 (5-15) L 02/15/24 05:49 BUN 25 mg/dL (7-18) H 02/15/24 05:49 Creatinine 1.36 mg/dL (0.70-1.30) H 02/15/24 05:49 Est GFR (MDRD) Af Amer 65 mL/min (>60) 02/15/24 05:49 Est GFR (MDRD) Non-Af 54 mL/min (>60) L 02/15/24 05:49 BUN/Creatinine Ratio 18.4 RATIO (10-20) 02/15/24 05:49 Glucose 108 mg/dL (74-106) H 02/15/24 05:49 Vancomycin Trough 15.9 ug/mL (5.0-15.0) H 02/15/24 13:42 Microbiology Microbiology: Microbiology 02/12/24 11:39 Mucosa - Nose SARS-CoV-2, Influenza & RSV (PCR) - Final Dosing Weight Weight used for dosin kg Estimated Creatinine Clearance Estimated Creatinine Clearance: ~ 55 Goal Trough Goal Trough: 15-20 mcg/mL Pharmacy Plan for Drug Dosing Pharmacy Plan for Drug Dosing: Vancomycin trough = 15.9, continue current dosing, trough in 2 days. Pharmacy Service will continue to monitor and adjust dosing as required. Follow-Up Labs Follow-Up Labs: Trough: Vancomycin Date/Time Labs Ordered Labs to be done on [date and time ordered]: 02/17/24 @ 1139
--- NOTE | 2024-02-15 16:21 | PCM.PN.HOSP ---
Reason for Visit Reason for Visit: Diagnoses Sepsis, unspecified organism (02/13/24) Fever, unspecified (02/13/24) Syncope and collapse (02/13/24) Subjective Subjective Patient was seen and examined today, I talked briefly with his also and infectious diseases. Patient's white blood cell count today was normal. Patient has been afebrile today. Objective Data Objective Data Vital Signs: Vital Signs Temp Pulse Resp BP Pulse Ox O2 Del Method O2 Flow Rate 98.6 F 80 16 137/84 H 92 Room Air 2 02/15/24 09:15 02/15/24 11:50 02/15/24 11:50 02/15/24 11:50 02/15/24 11:50 02/15/24 14:45 02/15/24 11:50 Oxygen Flow Rate (L/min) 2 Oxygen Delivery Method Room Air Weight: 109.4 kg Body Mass Index (BMI) 35.6 Intake & Output: Intake and Output for Last 24 Hours 02/13/24 02/14/24 02/15/24 23:59 23:59 23:59 Intake Total 3730 / 3730 4418.25 / 4618.25 2581.25 / 2581.25 Output Total 3000 / 4000 1900 / 2050 850 / 850 Balance 730 / -270 2518.25 / 2568.25 1731.25 / 1731.25 Lab / Micro Data 02/15/24 05:49 02/15/24 05:49 Labs: Laboratory Results - last 24 hr 02/15/24 05:49: WBC 10.6, RBC 3.61 L, Hgb 10.3 L, Hct 32.8 L, MCV 90.9, MCH 28.5, MCHC 31.4 L, RDW Std Deviation 50.5 H, RDW Coeff of Donna 15.2 H, Plt Count 116 L, MPV 10.8, Immature Gran % (Auto) 0.800, Neut % (Auto) 83.9 H, Lymph % (Auto) 8.1 L, [place] % (Auto) 5.9, Eos % (Auto) 0.9, Baso % (Auto) 0.4, Absolute Neuts (auto) 8.9 H, Absolute Lymphs (auto) 0.86, Nucleated RBC % 0, Sodium 140, Potassium 3.5, Chloride 112 H, Carbon Dioxide 26.0, Anion Gap 3 L, BUN 25 H, Creatinine 1.36 H, Estim Creat Clear Calc 55.45, Est GFR (MDRD) Af Amer 65, Est GFR (MDRD) Non-Af 54 L, BUN/Creatinine Ratio 18.4, Glucose 108 H, Calcium 8.5 02/15/24 05:54: Urine Color Yellow, Urine Clarity Sl. Cloudy, Urine pH 6.0, Ur Specific [place] 1.020, Urine Protein 30 H, Urine Glucose (UA) Normal, Urine Ketones Negative, Urine Occult Blood 250 H, Urine Nitrite Negative, Urine Bilirubin Negative, Urine Urobilinogen Normal, Ur Leukocyte Esterase 500 H, Urine RBC 10-25 SEEN, Urine WBC 50-100 SEEN, Ur Squamous Epith Cells 0 SEEN, Urine Bacteria RARE, Urine Mucus 0 SEEN 02/15/24 13:42: Vancomycin Trough 15.9 H Micro: Microbiology 02/12/24 11:39 Mucosa - Nose SARS-CoV-2, Influenza & RSV (PCR) - Final Physical Exam Narrative alert, oriented x3 and no apparent distress General Appearance: cooperative, well kempt and well developed Orientation / Consciousness: awake, oriented to person, oriented to place and oriented to time HEENT normocephalic, head/scalp atraumatic and moist oral mucous membranes Eyes PERRL, EOMs intact bilaterally and conjunctivae normal Neck supple, no JVD, thyroid normal and no carotid bruits General: trachea midline Resp normal respiratory effort, no retractions, no use of accessory muscles and clear to auscultation bilaterally Auscultation: Negative for rales, rhonchi or wheezes Cardio regular rate, regular rhythm, S1 normal heart sound, S2 normal heart sound, no murmurs, no rub and no gallops GI normal to inspection, nondistended, normoactive bowel sounds, soft to palpation, non-tender and non-distended Extremity no clubbing, cyanosis or edema Skin no rashes or lesions noted General Skin Exam: no breakdown Neuro oriented x3 and CN's II-XII intact bilaterally Neuro Narrative: Patient has bilateral lower extremity weakness which is chronic in nature Sensorium / Orientation: awake and alert Speech: speech normal Psych affect normal Assessment & Plan Assessment/Plan (1) Fever: (2) Syncope: PLAN: Plan 1. Fever of unknown origin-sepsis should be ruled out, patient is currently on Zosyn and vancomycin, infectious diseases has recommended continuing antibiotics for now and waiting for blood culture to result. MRI of the abdomen was ordered by infectious diseases, the results of this study is pending at this time. Urine and blood cultures are pending at this time #2 syncope-etiology unclear, possibly secondary to vasovagal syncope, PT and OT will continue to work with patient, patient's echocardiogram is unremarkable today #3 hypokalemia-corrected at this time #4 acute kidney injury-BMP will be rechecked tomorrow #5 paroxysmal [id number] is on apixaban and carvedilol Total clinical time spent by myself addressing the patient's medical issues, reviewing all of his data, and collaborating with patient's care team: 35 minutes Charges/Coding Visit Charges Inpatient E&M: 71570 Subs Hosp L2
[2024-02-15] MEDS: Citalopram 20 MG Tablet PO (23:10)
[2024-02-15] MEDS: Tamsulosin HCl 0.4 MG Capsule PO (23:11)
[2024-02-16] VITALS (8 sets, daily range): BP systolic 154–179; BP diastolic 79–88; PULSE 65–89; RESP 16–24; TEMP 36.1–37.6; O2SAT 93–98
[2024-02-16] MEDS: Vancomycin IV 1,000 MG/200 ML BAG 200 MG IV ×2 (00:54→11:29)
[2024-02-16] MEDS: Acetaminophen 325 MG Tablet 650 MG PO (04:40)
[2024-02-16] MEDS: Piperacil/Tazobactam 3.375 GM in 0.9% Normal Saline (50mL MB+) 50 ML IV ×3 (07:03→20:56)
[2024-02-16 08:45] LABS: Anion Gap 8 (5-15); BUN 21 mg/dL (7-18); BUN/Creat Ratio 16.2 RATIO (10-20); Calcium,Total 8.5 mg/dL (8.5-10.1); Chloride 112 mmol/L (98-107); EST Glomerular Filtration Rate 57 mL/min (>60); Est Glom Filt Rate - Afr Amer 69 mL/min (>60); Estimated Creatinine Clearance 58.01 ml/min; Glucose 147 mg/dL (74-106); Potassium 3.4 mmol/L (3.5-5.1); Sodium Level 140 mmol/L (136-145)
--- NOTE | 2024-02-16 09:39 | NURSING ---
Robert at [employer] notified of pacer spike after QRS. Robert reports that his mode is with right response on and it is an impddence measurement and normal for this patient's pacemaker.
[2024-02-16] MEDS: APIXABAN 5 MG TABLET PO ×2 (09:48→20:55)
[2024-02-16] MEDS: Menthol/Lanolin/Calamine/Znox 113 GM Tube 1 APPLIC TOPICAL ×3 (09:48→20:53)
[2024-02-16] MEDS: Gabapentin 300 MG Capsule 600 MG PO ×2 (09:49→20:54)
[2024-02-16] MEDS: Ascorbic Acid 500 MG Tablet 1000 MG PO (11:30)
--- NOTE | 2024-02-16 12:41 | PCM.PN.ID ---
Physical Exam Narrative Feeling better, no fever, no abd pain Const alert and no apparent distress General Appearance: cooperative Resp normal air movement and clear to auscultation bilaterally Cardio regular rate and regular rhythm GI soft to palpation, non-tender and non-distended Skin no rashes or lesions noted ID ID: Route of nutrition/ use of supplements: [] Nutritional Intake: [] IV Site: [] Mejía Catheter: [] Assessment & Plan Assessment/Plan (1) Syncope: (2) Fever: (3) Sepsis: PLAN: fever, lactic acidosis, leukocytosis; now resolved. Unclear source. Bcx and Ucx ngtd. Covid neg. CT showed enhancing liver lesion and c.o RUQ pain. No infection seen on MRI liver. Will stop abx tonight. Will follow prn
--- NOTE | 2024-02-16 18:01 | PN.HOSP_ITS ---
Reason for Visit Reason for Visit: Diagnoses Sepsis, unspecified organism (02/13/24) Fever, unspecified (02/13/24) Syncope and collapse (02/13/24) Subjective Subjective Patient was seen and examined today, according to infectious diseases notes the patient's antibiotics can be stopped this evening. Patient's blood culture did not grow out any organisms, patient's urine culture grew out a gram-negative irineo although the colony count was low. Patient's MRI of his liver showed a hepatic cyst. I talked briefly with the patient's who was in the room at the time my examination. Objective Data Objective Data Vital Signs: Vital Signs Temp Pulse Resp BP Pulse Ox O2 Del Method O2 Flow Rate 98.2 F 65 18 161/79 H 95 Room Air 4 02/16/24 15:10 02/16/24 15:10 02/16/24 15:10 02/16/24 15:10 02/16/24 15:10 02/16/24 15:10 02/16/24 05:00 Oxygen Flow Rate (L/min) 4 Oxygen Delivery Method Room Air Weight: 109.4 kg Body Mass Index (BMI) 35.6 Intake & Output: Intake and Output for Last 24 Hours 02/14/24 02/15/24 02/16/24 23:59 23:59 23:59 Intake Total 4418.25 / 4618.25 3803.75 / 4203.75 1200 / 1200 Output Total 1900 / 2050 1150 / 1600 850 / 850 Balance 2518.25 / 2568.25 2653.75 / 2603.75 350 / 350 Lab / Micro Data 02/15/24 05:49 02/16/24 05:22 Labs: Laboratory Results - last 24 hr 02/16/24 05:22: Sodium 140, Potassium 3.4 L, Chloride 112 H, Carbon Dioxide 21.0, Anion Gap 8, BUN 21 H, Creatinine 1.30, Estim Creat Clear Calc 58.01, Est GFR (MDRD) Af Amer 69, Est GFR (MDRD) Non-Af 57 L, BUN/Creatinine Ratio 16.2, G lucose 147 H, Calcium 8.5 Micro: Microbiology 02/15/24 05:55 Urine, Clean Catch Urine Culture - Preliminary Gram negative irineo 02/12/24 12:05 Blood Culture (Wb) - Anticubital Right Blood Culture - Preliminary No growth in 48 hours. 02/12/24 11:45 Blood Culture (Wb) - Anticubital Right Blood Culture - Preliminary No growth in 48 hours. 02/12/24 11:39 Mucosa - Nose SARS-CoV-2, Influenza & RSV (PCR) - Final Physical Exam Const alert, oriented x3 and no apparent distress General Appearance: cooperative, well kempt and well developed Orientation / Consciousness: awake, oriented to person, oriented to place and oriented to time HEENT normocephalic and moist oral mucous membranes Eyes PERRL, EOMs intact bilaterally and conjunctivae normal Neck supple, no JVD, thyroid normal and no carotid bruits General: trachea midline Resp normal respiratory effort, no retractions, no use of accessory muscles and clear to auscultation bilaterally Auscultation: Negative for rales, rhonchi or wheezes Cardio regular rate, regular rhythm, no murmurs, no rub and no gallops GI normal to inspection, nondistended, normoactive bowel sounds, soft to palpation, non-tender and non-distended Extremity no clubbing, cyanosis or edema Skin no rashes or lesions noted General Skin Exam: no breakdown Neuro oriented x3 and CN's II-XII intact bilaterally Neuro Narrative: Patient has lower extremity weakness bilaterally which is chronic Sensorium / Orientation: awake and alert Speech: speech normal Psych affect normal Assessment & Plan Assessment/Plan (1) Fever: (2) Syncope: PLAN: Plan 1. Fever of unknown origin-sepsis should be ruled out, patient is currently on Zosyn and vancomycin, according to infectious diseases these will be stopped tonight #2 syncope-etiology unclear, possibly secondary to vasovagal syncope, PT and OT will continue to work with patient, patient's echocardiogram is unremarkable today #3 hypokalemia-corrected at this time #4 acute kidney injury-BMP will be rechecked tomorrow #5 paroxysmal [id number] is on apixaban and carvedilol Total clinical time spent by myself addressing the patient's medical issues, reviewing all of his data, and collaborating with patient's care team: 35 minutes Charges/Coding Visit Charges Inpatient E&M: 95594 Init Hosp L2
[2024-02-16] MEDS: Citalopram 20 MG Tablet PO (20:55)
[2024-02-16] MEDS: Tamsulosin HCl 0.4 MG Capsule PO (20:55)
[2024-02-17 03:10] VITALS: BP 172/85; PULSE 70; RESP 16; TEMP 36.7; O2SAT 94
[2024-02-17 04:33] VITALS: BP 172/85; PULSE 70
[2024-02-17] MEDS: 0.9% Saline Lock 10 ML Syringe IV (04:33)
[2024-02-17] MEDS: hydrALAZINE 20 MG/ML Vial 10 MG IV (04:33)
[2024-02-17 07:26] VITALS: O2SAT 94
[2024-02-17 09:10] VITALS: BP 176/85; PULSE 66; RESP 18; TEMP 36.6; O2SAT 94
[2024-02-17 09:59] VITALS: BP 170/85; PULSE 66; RESP 16; TEMP 36.6; O2SAT 94
[2024-02-17] MEDS: Menthol/Lanolin/Calamine/Znox 113 GM Tube 1 APPLIC TOPICAL ×2 (10:00→14:39)
[2024-02-17] MEDS: Ascorbic Acid 500 MG Tablet 1000 MG PO (10:01)
[2024-02-17] MEDS: APIXABAN 5 MG TABLET PO (10:01)
[2024-02-17] MEDS: Gabapentin 300 MG Capsule 600 MG PO (10:01)
--- NOTE | 2024-02-17 13:45 | CASEMGMT ---
PRUDENCIO HERMAN updated by hospitalist that patient will be discharging today. PRUDENCIO CM in to discuss needs at discharge. RN CM reviewed progress with therapy, max assist x3 to transfer. states that her sons will assist with transfers. declines need for HHC at discharge. denied further needs or help at discharge. PRUDENCIO HERMAN instructed that should they reconsider HHC to follow-up with PCP, voiced understanding.
--- NOTE | 2024-02-17 14:26 | DCINST_ITS ---
Discharge Instructions Diet Discharge Diet: No restrictions DC O2, CPAP, BIPAP needs Additional Home O2 Discharge instructions: No Dressing / Incision Discharge Activity: Return to Normal Activity Weight Bearing Status: Weight bearing as tolerated Follow Up Care Test Results: Test results from this visit will be discussed in further detail at your follow- up appointment, if applicable. Discharge Plan Admission Admit Date/Time: 02/13/24 15:46 Primary Reason for Your Visit: Syncope, fever of unknown origin Attending Provider: Yovany Yañez Primary Care Provider: Tunde Beard Consulting Providers: Sanjuanita Karimi; Tunde Stuart Discharge Orders/Prescriptions Prescriptions: New potassium chloride 10 mEq Tablet,Er Particles/Crystals 20 meq PO DAILYCM Qty: 60 0RF Continued citalopram 20 mg tablet 20 mg PO QHS gabapentin 300 mg capsule 600 mg PO BID lisinopril 20 MG tablet 20 mg PO DAILY Patient Comments: BLOOD PRESSURE ascorbic acid (vitamin C) 500 mg tablet 1,000 mg PO LUNCH tamsulosin 0.4 mg Capsule 0.4 mg PO QHS 30 Days Qty: 30 0RF carvedilol 12.5 mg Tablet 12.5 mg PO BID nitrofurantoin monohyd/m-cryst 100 mg capsule 1 cap PO BID Patient Comments: pt has taken 6 doses so far vitamin E [Vitamin E-400] 180 mg PO DAILY cholecalciferol (vitamin D3) 25 mcg (1,000 unit) capsule 25 mcg PO DAILY docusate sodium [Enemeez] 283 mg/5 mL enema 283 mg [place] BID Eliquis 5 mg tablet 5 mg PO BID Qty: 180 4RF Discontinued potassium chloride 10 mEq tablet,ER particles/crystals 10 meq PO DAILY hydrochlorothiazide 25 mg tablet 25 mg PO QHS Referrals / Follow Up: Tunde Beard DO [Primary Care Provider] - Within 2 Weeks Disposition Disposition (needs filled in before D/C Order can be placed): Home, Self Care
--- NOTE | 2024-02-17 14:34 | PCM.DC.SUM ---
Providers Date of Admission: 02/13/24 Date of Discharge: 02/17/24 Primary Care Physician: Dr. Tunde Beard DO Consultations 02/14/24 09:06 Consult: Infectious Disease Routine Consulting Provider: Tunde Stuart Reason for Consult: FEVER, LEUKOCYTOSIS EMERGENT Consult: No MD Notified: Yes Date Notified: 02/14/24 Time Notified: 09:07 Method of Notification: Verbal Reason For Visit: SYNCOPE Diagnosis Discharge Diagnosis (1) Fever: Status: Acute Code(s): R50.9 - Fever, unspecified (2) Syncope: Status: Acute Code(s): R55 - Syncope and collapse Plan 1. Fever of unknown origin-sepsis should be ruled out, patient is currently on Zosyn and vancomycin, according to infectious diseases these will be stopped tonight #2 syncope-etiology unclear, possibly secondary to vasovagal syncope, PT and OT will continue to work with patient, patient's echocardiogram is unremarkable today #3 hypokalemia-corrected at this time #4 acute kidney injury-BMP will be rechecked tomorrow #5 paroxysmal [id number] is on apixaban and carvedilol Total clinical time spent by myself addressing the patient's medical issues, reviewing all of his data, and collaborating with patient's care team: 35 minutes Medications at Discharge Home Medications lisinopril 20 mg tablet 20 mg PO DAILY blood pressure 06/24/15 ascorbic acid (vitamin C) 500 mg tablet 1,000 mg PO LUNCH supplement 08/17/21 tamsulosin 0.4 mg capsule 0.4 mg PO QHS Urine retention 30 days #30 caps 09/03/21 citalopram 20 mg tablet 20 mg PO QHS depression 12/04/21 gabapentin 300 mg capsule 600 mg PO BID Nerve pain 12/04/21 apixaban 5 mg tablet (Eliquis) 5 mg PO BID blood thinner #180 tabs 02/02/23 carvedilol 12.5 mg tablet 12.5 mg PO BID BP 02/12/24 cholecalciferol (vitamin D3) 25 mcg (1,000 unit) capsule 25 mcg PO DAILY 02/12/24 nitrofurantoin monohydrate/macrocrystals 100 mg capsule 1 cap PO BID 02/12/24 vitamin E 180 mg PO DAILY supplement 02/12/24 docusate sodium 283 mg/5 mL enema (Enemeez) 283 mg CA BID constipation 02/13/24 potassium chloride 10 mEq tablet,extended release(part/cryst) 20 meq (2 x 10 mEq) PO DAILYCM #60 tabs 02/17/24 Hospital Course Operations None Procedures None Summary of Care Provided Minutes Spent on Discharge: 31 Hospital Course: This 78-year-old white male was seen in the emergency room at [facility] after experiencing a syncopal episode at home. Patient had had a bowel movement that morning and afterwards when trying to get up with his rolled shower chair to the wheelchair, he passed out. Patient became unresponsive for short period of time and they checked his blood pressure was low at 64/48. Labs obtained in the emergency room showed a normal white blood cell count, hemoglobin was 11.7, chemistry panel showed a potassium of 2.8, creatinine 1.45 and BUN of 27. Glucose was 130, urinalysis was unremarkable. 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 Chest x-ray showed bibasilar pulmonary opacities left greater than right secondary to possible atelectasis. Patient was admitted to PCU and monitored on telemetry, potassium was replaced, it was felt that his syncope was due to vasovagal syncope. Patient's home diuretic was held due to his elevated creatinine. Patient was given IV fluids. Patient developed a temperature while hospitalized, the etiology of the fever was unknown and he was placed on IV antibiotics and seen in consultation by infectious diseases. Patient's fever resolved and his blood culture was negative, patient's urine grew out small numbers of bacteria. On 02/17/2024, patient was seen and examined: On examination he appeared in good health and spirits. Vital signs as documented. Skin warm and dry and without overt rashes. Neck without JVD, neck was supple, trachea midline, thyroid was normal. Lungs clear bilaterally, normal air movement was noted. Heart exam notable for regular rhythm, normal sounds and absence of murmurs, rubs or gallops. Abdomen unremarkable and without evidence of organomegaly, masses, or abdominal aortic enlargement. Bowel sounds are present, abdomen is not distended. Extremities nonedematous, no cyanosis was noted, no clubbing was noted. Neuro: Cranial nerves II through XII are grossly intact, patient had lower extremity weakness bilaterally, sensation to light touch and pinprick intact, motor exam 5/5 throughout. Psych: Patient is alert and oriented x3, he does not appear anxious or depressed, he does not appear agitated. Patient was discharged home in stable condition on 02/17/2024. Weight / BMI Weight Weight: 109.4 kg Body Mass Index (BMI) 35.6 ABG / Lab / Microbiology Data 02/15/24 05:49 02/16/24 05:22 Microbiology: Microbiology 02/15/24 05:55 Urine, Clean Catch Urine Culture - Final Pseudomonas spp 02/12/24 11:45 Blood Culture (Wb) - Anticubital Right Blood Culture - Final No growth in 5 days. 02/12/24 12:05 Blood Culture (Wb) - Anticubital Right Blood Culture - Final No growth in 5 days. 02/12/24 11:39 Mucosa - Nose SARS-CoV-2, Influenza & RSV (PCR) - Final D/C Instructions Discharge Diet: No restrictions Weight Bearing Status: Weight bearing as tolerated DC O2, CPAP, BIPAP Needs Additional Home O2 Discharge instructions: No DC home with Oxygen: No Meaningful Use Info Meaningful Use Meaningful Use Diagnoses (Choose all that apply): None applicable Ischemic Stroke Statin Dosing Therapy Reference: STATIN DOSE THERAPY REFERENCE: * Patients > 75 years receive moderate or high dose statin therapy. * Patients 75 years or YOUNGER should receive HIGH intensity statin dose unless contraindicated. You will be required to document reason for non-treatment if statin daily dose does not meet guidelines. HIGH DOSE STATIN THERAPY DAILY Atorvastatin > than or = to 40 mg Rosuvastatin > than or = to 20 mg Amlodipine + Atorvastatin > than or = to 2.5/40 mg Ezetimibe + Simvastatin 10/80 mg Simvastatin 80mg Discharge Plan Admission Admit Date/Time: 02/13/24 15:46 Primary Reason for Your Visit: Syncope, fever of unknown origin Attending Provider: Yovany Yañez Primary Care Provider: Tunde Beard Consulting Providers: Sanjuanita Karimi; Tunde Stuart Discharge Orders/Prescriptions Prescriptions: New potassium chloride 10 mEq Tablet,Er Particles/Crystals 20 meq PO DAILYCM Qty: 60 0RF Continued citalopram 20 mg tablet 20 mg PO QHS gabapentin 300 mg capsule 600 mg PO BID lisinopril 20 MG tablet 20 mg PO DAILY Patient Comments: BLOOD PRESSURE ascorbic acid (vitamin C) 500 mg tablet 1,000 mg PO LUNCH tamsulosin 0.4 mg Capsule 0.4 mg PO QHS 30 Days Qty: 30 0RF carvedilol 12.5 mg Tablet 12.5 mg PO BID nitrofurantoin monohyd/m-cryst 100 mg capsule 1 cap PO BID Patient Comments: pt has taken 6 doses so far vitamin E [Vitamin E-400] 180 mg PO DAILY cholecalciferol (vitamin D3) 25 mcg (1,000 unit) capsule 25 mcg PO DAILY docusate sodium [Enemeez] 283 mg/5 mL enema 283 mg [place] BID Eliquis 5 mg tablet 5 mg PO BID Qty: 180 4RF Discontinued potassium chloride 10 mEq tablet,ER particles/crystals 10 meq PO DAILY hydrochlorothiazide 25 mg tablet 25 mg PO QHS Referrals / Follow Up: Tunde Beard DO [Primary Care Provider] - 02/21/24 11:00 am Disposition Disposition (needs filled in before D/C Order can be placed): Home, Self Care Charges/Coding Visit Charges Inpatient E&M: 66946 Disch Hosp >30min
[2024-02-17 14:42] VITALS: BP 176/85; PULSE 66; RESP 18; TEMP 36.6; O2SAT 94
== END 2024-02-17 16:37 | disposition home or self-care (01) | DRG 872 ==
LOC: ED 13:53 → PCU 14:02
PROVIDERS: Hospitalist; Admitting Provider Student in an Organized Health Care Education/Training Program; Emergency Provider Emergency Medicine; PCP Preventive Medicine Occupational Medicine; Visit Provider Internal Medicine
DX: A41.9 Sepsis, unspecified organism (principal); E87.20 Acidosis, unspecified; G82.20 Paraplegia, unspecified; N17.9 Acute kidney failure, unspecified; I48.0 Paroxysmal atrial fibrillation; D72.829 Elevated white blood cell count, unspecified; I10 Essential (primary) hypertension; F32.A Depression, unspecified; K76.89 Other specified diseases of liver; I69.398 Other sequelae of cerebral infarction; E87.6 Hypokalemia; I95.1 Orthostatic hypotension; Z95.0 Presence of cardiac pacemaker; Z79.01 Long term (current) use of anticoagulants; Z79.899 Other long term (current) drug therapy; R79.89 Other specified abnormal findings of blood chemistry; N40.0 Benign prostatic hyperplasia without lower urinary tract symptoms
CPT/HCPCS: 36415; 36600; 70450; 71045; 71250; 74177; 74183; 80048; 80202; 81001; 82803; 82962; 83605; 83735; 83880; 84484; 85025; 85027; 87040; 87077; 87086; 87088; 87184; 87186; 87631; 93005; 93306; 97162; 97166; 97530; 97535; 99285; A9575; J7030; J7040; J7120; Q9957; Q9967; A4216; C8929; J2405

== ENCOUNTER 2024-02-21 16:39 | Emergency (ER) | payer MEDICARE, OTHER, SELFPAY ==
[2024-02-21] VITALS (7 sets, daily range): BP systolic 162–186; BP diastolic 79–89; PULSE 65–73; RESP 18–29; TEMP 36.9–37.6; O2SAT 95–98; BMI 36.2
--- NOTE | 2024-02-21 17:01 | RAD_ITS ---
EXAM: XR CHEST, 1 VIEW CLINICAL INDICATION: fever TECHNIQUE: Frontal view of the chest. COMPARISON: February 14, 2024. February 12, 2024. FINDINGS: LUNGS AND PLEURAL SPACES: The left lateral costophrenic angle is more blunted compared to most recent prior exam but similar to earlier exam, cannot exclude small left effusion. The lungs remain mildly underinflated without significant infiltrate but there is poor visualization of the left hemidiaphragm, new from most recent exam, and possibly mild left basilar atelectasis or infiltrate. Similar mildly prominent perihilar vessels. No pneumothorax. HEART: Stable mild cardiomegaly with left subclavian transvenous pacemaker leads. MEDIASTINUM: Central airways and mediastinal contour are unremarkable. BONES/JOINTS: Postoperative changes of the cervicothoracic region is again noted. No acute fracture. SOFT TISSUES: Unremarkable. RAD/Chest 1 View (Portable) IMPRESSION: 1. Recurrent left basilar mild opacity and newly obscured visualization of the left lateral costophrenic angle compared to 7 days ago. Considerations include atelectasis and minimal infiltrate and effusion. 2. Stable cardiomegaly and pacemaker leads. Electronically Signed: Calista Mattson MD at 18:18 EST ,
--- NOTE | 2024-02-21 17:03 | EX.ED.DYSGE1 ---
HPI History of Present Illness Chief Complaint: Weakness Detail of Chief Complaint: Generalized weakness and fever Informant: patient Narrative Narrative: Patient presents with generalized weakness and fever that has had for about 4 5 days. Patient states that he was admitted for urosepsis about 9 days ago and spent 4 to 5 days in the hospital. Upon discharge she was told to finish the ciprofloxacin that he had received prior from his primary care physician. 24 hours after getting home patient started with fever again. He denies cough. He denies abdominal pain. He has had no diarrhea or vomiting. 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 Depression Hypertension Atrial fibrillation Anterior communicating artery aneurysm Atrial fibrillation History of DVT (deep vein thrombosis) AAA (abdominal aortic aneurysm) without rupture Sick sinus syndrome Family history of hypertension History of spinal cord injury Paraplegia Premature ventricular contractions BPH (benign prostatic hypertrophy) Depression Cervical spinal stenosis Spinal cord injury Neurogenic bladder Degenerative joint disease (DJD) of lumbar spine Anemia Central cord syndrome Subluxation of C6-C7 cervical vertebrae 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.9) Home Medications ?Medication ?Instructions ?Recorded ?Last Taken ?Type lisinopril 20 mg tablet 20 mg PO DAILY blood pressure 06/24/15 02/11/24 History ascorbic acid (vitamin C) 500 mg 1,000 mg PO LUNCH supplement 08/17/21 02/11/24 History tablet tamsulosin 0.4 mg capsule 0.4 mg PO QHS Urine retention 30 09/03/21 02/11/24 Rx days #30 caps citalopram 20 mg tablet 20 mg PO QHS depression 12/04/21 02/11/24 History apixaban 5 mg tablet (Eliquis) 5 mg PO BID blood thinner #180 tabs 02/02/23 02/11/24 Rx carvedilol 12.5 mg tablet 12.5 mg PO BID BP 02/12/24 02/11/24 History cholecalciferol (vitamin D3) 25 25 mcg PO DAILY 02/12/24 Unknown History mcg (1,000 unit) capsule vitamin E 180 mg PO DAILY supplement 02/12/24 02/11/24 History docusate sodium 283 mg/5 mL enema 283 mg AK BID constipation 02/13/24 Unknown History (Enemeez) potassium chloride 10 mEq 20 meq (2 x 10 mEq) PO DAILYCM #60 02/17/24 Unknown Rx tablet,extended release(part/cryst) tabs gabapentin 600 mg tablet 600 mg PO BID 02/21/24 Unknown History Allergy/AdvReac Type Severity Reaction Status Date / Time ceftriaxone Allergy Rash Verified 02/21/24 16:39 ciprofloxacin (From Cipro) Allergy Hives Verified 02/21/24 16:39 sulfamethoxazole (From Allergy PT UNSURE Verified 02/21/24 16:39 Bactrim) OF REACTION trimethoprim (From Bactrim) Allergy PT UNSURE Verified 02/21/24 16:39 OF REACTION Family History Mother Breast cancer Cancer Brain cancer Sister Diabetes Hypertension CHF (congestive heart failure) Kidney disease Sister CHF (congestive heart failure) Cardiac defibrillator in situ Other Family history of hypertension Surgical History History of neck surgery History of permanent cardiac pacemaker placement S/P cervical spinal fusion Social History household members: spouse Smoking Status: Never smoker alcohol intake: current alcohol intake frequency: holidays/special occasions only Alcohol type: wine substance use type: does not use caffeine: Yes Type: coffee Number of servings: 1 what type of physical activity do you participate in: other details: Health point frequency: 1-2 times per week duration: 45-60 minutes/day seatbelt use: always do you feel safe at home: Yes ROS ROS ED Review of Systems ROS Unobtainable: other Constitutional Constitutional ED: Reports fever(s); Denies chills, sweats or weight loss Eyes Eyes: Denies blurry vision, change in vision or diplopia ENT ENT ED: Denies rhinorrhea or sore throat Cardiovascular Cardiovascular: Denies chest pain, orthopnea or racing heartbeat Respiratory/Chest Respiratory/Chest: Denies cough, dyspnea, dyspnea on exertion, orthopnea or sputum Gastrointestinal Gastrointestinal: Denies abdominal pain, diarrhea, nausea or vomiting Genitourinary Genitourinary ED: Denies dysuria, hematuria or urinary frequency Musculoskeletal Musculoskeletal: Denies arthralgias, back pain, myalgias or neck pain Integumentary Denies abscess, Abrasions or rash Neurologic Neurologic: Denies headache(s) or weakness Psychiatric Psychiatric: Denies anxiety, depression or suicidal thoughts Endocrine Endocrinology: Denies polydipsia, polyphagia or polyuria Hematologic/Lymphatic Hematologic/Lymphatic: Denies easy bleeding, easy bruising or lymphadenopathy Allergic/Immunologic Allergic/Immunologic ED: Denies mouth swelling, tongue swelling or urticaria EXAM Physical Exam Const Vital Signs: 02/21/24 16:40 02/21/24 17:00 02/21/24 18:00 Temperature 99.7 F H 98.4 F Temperature Source Oral Oral Pulse Rate 71 68 73 Respiratory Rate 18 29 H 26 H Respiratory Effort Respiratory Pattern Blood Pressure 176/89 H 162/79 H 182/80 H Blood Pressure Mean 118 100 114 Pulse Ox 97 95 98 Oxygen Delivery Method Room Air Room Air 02/21/24 18:13 02/21/24 19:00 02/21/24 19:58 Temperature 98.7 F Temperature Source Oral Pulse Rate 70 70 Respiratory Rate 20 H 23 H Respiratory Effort Normal Non-Labored Respiratory Pattern Normal Blood Pressure 186/86 H 181/79 H Blood Pressure Mean 115 113 Pulse Ox 98 Oxygen Delivery Method Positive well nourished and well developed General Appearance ED: well developed and NAD HEENT Reports TM's clear and moist mucous membranes normocephalic and atraumatic; Negative for trauma or tenderness Tympanic Membrane ED: Yes TM's clear Eyes PERRL and EOMs intact bilaterally General Eye ED: Negative for pale conjunctiva or scleral icterus Neck no lymphadenopathy, supple and no JVD General: Negative for tenderness Chest Wall inspection of chest normal and palpation of chest normal Chest: Negative for tenderness Resp normal respiratory effort and clear to auscultation bilaterally Effort and Inspection: Negative for respiratory distress or pain with movement Auscultation: Negative for rhonchi, wheezes or diminished lung sounds Cardio regular rate, regular rhythm, S1 normal heart sound, S2 normal heart sound and no murmurs Peripheral Pulses: pulses 2+ throughout GI normal to inspection, nondistended, normoactive bowel sounds, soft to palpation, non-tender, non-distended and no masses Back/Spine no CVA tenderness and no thoracic nor lumbar tenderness Extremity normal to inspection General Extremety ED: Negative for edema General Extremity: Negative for edema Neuro oriented x3, CN's II-XII intact bilaterally, no sensory deficits noted and gait normal Sensorium / Orientation: awake, alert, oriented to person, oriented to place and oriented to time Motor Exam: strength 5/5 throughout and strength abnormal Psych mental status grossly normal Skin no rashes or lesions noted and no wounds MDM MDM MDM Narrative Medical decision making narrative: Patient with fever and generalized weakness recently admitted for UTI and urosepsis. Clinically looks well. Patient had a CBC with differential obtained showed a white count of 9.2 with hemoglobin 11.5 and platelet count of 177. Chemistries unremarkable. LFTs were normal. Urinalysis 500 leukocyte esterase and 10-25 WBCs with rare bacteria. Urine culture was sent. Blood cultures ordered. Chest x-ray 1 view obtained showed recurrent left basilar increased markings which could be atelectasis versus minimal infiltrate. COVID flu and RSV testing was negative. This point etiology of his fever is unclear. He clinically looks well. He had a CT scan of the abdomen pelvis 1 week ago that was unremarkable had a questionable mass in his liver and then had an MRI of his abdomen and pelvis. That time was noted he had small gallstones. Will start patient on Levaquin to cover urine and possible pneumonia although he denies much cough. Offered to family to admit patient given ongoing fever despite prior admission and he had negative blood cultures at that time. His last urine culture was positive for Pseudomonas. Patient apparently is allergic to Cipro and he gets hives therefore Levaquin could be a good choice. Given patient's increased weakness and ongoing fevers will admit. Will start on imipenem IV. Discussed with hospitalist to evaluate patient for admission patient was seen by hospitalist Dr. Ignacio Garrett who after further discussion with family they asked that patient go home with home health to have IV ertapenem daily for 10 days as family would prefer to take patient home. Social work no longer here but they will put a consult in in the morning. Will not be able to leave IV Hep-Lock in place. I am told that home health will have to start an IV at home. Advised family members to return if condition should worsen anyway Lab Data Attestation: I reviewed the patient's lab results. Labs: Laboratory Results - last 24 hr 02/21/24 17:25 WBC 9.2 RBC 3.90 L Hgb 11.5 L Hct 34.8 L MCV 89.2 MCH 29.5 MCHC 33.0 RDW Std Deviation 47.8 H RDW Coeff of Donna 14.8 H Plt Count 177 MPV 10.5 Immature Gran % (Auto) 0.700 Neut % (Auto) 81.6 H Lymph % (Auto) 9.1 L [place] % (Auto) 7.2 Eos % (Auto) 1.0 Baso % (Auto) 0.4 Absolute Neuts (auto) 7.5 Absolute Lymphs (auto) 0.83 Nucleated RBC % 0 Sodium 142 Potassium 3.7 Chloride 113 H Carbon Dioxide 25.0 Anion Gap 4 L BUN 14 Creatinine 0.93 Est GFR (MDRD) Af Amer 101 Est GFR (MDRD) Non-Af 84 BUN/Creatinine Ratio 15.1 Glucose 101 Lactic Acid 1.4 Calcium 8.5 Total Bilirubin 0.70 AST 27 ALT 30 Alkaline Phosphatase 52 Total Protein 7.0 Albumin 2.9 L Globulin 4.1 Albumin/Globulin Ratio 0.7 L Urine Color Silvia Urine Clarity Clear Urine pH 7.0 Ur Specific [place] 1.010 Urine Protein 30 H Urine Glucose (UA) Normal Urine Ketones Negative Urine Occult Blood 50 H Urine Nitrite Negative Urine Bilirubin Negative Urine Urobilinogen Normal Ur Leukocyte Esterase 500 H Urine RBC 0-5 SEEN Urine WBC 10-25 SEEN Ur Squamous Epith Cells 0-5 SEEN Ur Transition Epith Cell 0-5 SEEN Ur Renal Epithelial Cell 0-5 SEEN Urine Bacteria RARE Hyaline Casts 0-5 SEEN Urine Mucus 1+ Radiography Diagnostic Testing: Clinical Impression(s) from Imaging Studies Chest X-Ray 02/21/24 17:01 IMPRESSION: 1. Recurrent left basilar mild opacity and newly obscured visualization of the left lateral costophrenic angle compared to 7 days ago. Considerations include atelectasis and minimal infiltrate and effusion. 2. Stable cardiomegaly and pacemaker leads. Electronically Signed: Calista Mattson MD at 18:18 EST , Discharge Plan Triage Chief Complaint: Weakness ED Provider: Jesse Yee Dx/Rx/DC Orders Clinical Impression: Fever, Weakness Instructions: ED FUO Adult, ED Weakness (Uncertain Cause) Prescriptions: No Action citalopram 20 mg tablet 20 mg PO QHS lisinopril 20 MG tablet 20 mg PO DAILY Patient Comments: BLOOD PRESSURE ascorbic acid (vitamin C) 500 mg tablet 1,000 mg PO LUNCH tamsulosin 0.4 mg Capsule 0.4 mg PO QHS 30 Days Qty: 30 0RF carvedilol 12.5 mg Tablet 12.5 mg PO BID vitamin E [Vitamin E-400] 180 mg PO DAILY cholecalciferol (vitamin D3) 25 mcg (1,000 unit) capsule 25 mcg PO DAILY docusate sodium [Enemeez] 283 mg/5 mL enema 283 mg AK BID potassium chloride 10 mEq Tablet,Er Particles/Crystals 20 meq PO DAILYCM Qty: 60 0RF gabapentin 600 mg tablet 600 mg PO BID Eliquis 5 mg tablet 5 mg PO BID Qty: 180 4RF Primary Care Provider: Tunde Beard Referrals: Tunde Beard DO [Primary Care Provider] - 3-5 Days Activity Restrictions/Additional Instructions: We will have home health visit to start IV and start ertapenem 1 g IV for 10 days Print Language: Maltese Disposition Disposition: Home, Self Care
[2024-02-21 17:49] LABS: Absolute Lymphocyte Count 0.83 X10^3/uL (0.83-4.51); Absolute Neutrophil Count 7.5 X10^3/uL (2.0-7.7); Basophil# 0.04 X10^3/uL; Basophil% 0.4 % (0-1); Eosinophil# 0.09 X10^3/uL; Hematocrit 34.8 % (40-54); Hemoglobin 11.5 g/dL (13.0-16.5); Lymphocyte # 0.83 X10^3/ul (0.83-4.51); Lymphocyte % 9.1 % (19-41); Mean Corpuscular Hgb 29.5 pg (27.0-32.0); Mean Corpuscular Volume 89.2 fL (80-94); Mean Platelet Vol. 10.5 fl (6.2-12.0); Monocyte# 0.66 X10^3/uL; Monocyte% 7.2 % (0-10); NRBC Flagged by Analyzer 0 % (0-5); Neutrophil # 7.48 X10^3/uL (2.7-7.7); Neutrophil % 81.6 % (47-70); Platelet Count 177 K/mm3 (150-450); RBC Distribution Width CV 14.8 % (11.6-14.6); RBC Distribution Width SD 47.8 fl (35.1-43.9); White Blood Count 9.2 K/mm3 (4.4-11.0)
[2024-02-21] MEDS: 0.9% Normal Saline (1000mL) 1,000 ML 1000 ML IV (17:50)
[2024-02-21 18:11] LABS: ALB/GLOB Ratio 0.7 RATIO (0.9-2.4); AST(SGOT) 27 U/L (15-37); Alanine Aminotransfer ALT/SGPT 30 U/L (16-61); Albumin, Serum 2.9 g/dL (3.2-5.0); Alkaline Phosphatase 52 U/L (45-117); Anion Gap 4 (5-15); BUN 14 mg/dL (7-18); BUN/Creat Ratio 15.1 RATIO (10-20); Calcium,Total 8.5 mg/dL (8.5-10.1); Chloride 113 mmol/L (98-107); Creatinine, Serum 0.93 mg/dL (0.70-1.30); EST Glomerular Filtration Rate 84 mL/min (>60); Est Glom Filt Rate - Afr Amer 101 mL/min (>60); Globulin 4.1 g/dL (2.2-4.2); Glucose 101 mg/dL (74-106); Potassium 3.7 mmol/L (3.5-5.1); Sodium Level 142 mmol/L (136-145)
[2024-02-21 18:20] LABS: Lactic Acid 1.4 mmol/L (0.4-1.9)
[2024-02-21 18:43] LABS: Color, Urine Amber (Yellow); Glucose, Dipstick Normal (Normal); Ketone-Dipstick Negative (Negative); Leukocyte Esterase-Dipstick 500 /ul (Negative); Nitrite-Dipstick Negative (Negative); Occult Blood-Urine 50 /ul (Negative); Protein-Dipstick 30 mg/dl (Negative); Urine Bilirubin Dipstick Negative (Negative); Urine Clarity Clear (Clear); Urine Urobilinogen Normal (Normal)
[2024-02-21 18:55] LABS: Red Blood Cells-Urine 0-5 SEEN /hpf (0-5); Squamous Epithelial Cells - UA 0-5 SEEN /hpf (0-5); White Blood Cells 10-25 SEEN /hpf (0-5)
[2024-02-21 18:56] LABS: Bacteria RARE /hpf (None Seen); Hyaline Cast 0-5 SEEN /lpf (0-5); Mucous, Urine 1+ /hpf (<or=2+); Renal Epithelial Cells 0-5 SEEN /hpf (0-5); Transitional Epithelial - Ur 0-5 SEEN /hpf (0-5)
[2024-02-21] MEDS: Doxycycline 100 MG CAPSULE PO (21:15)
[2024-02-21] MEDS: Meropenem 1 GM in 0.9% Normal Saline (100mL MB+) 100 ML IV (21:15)
--- NOTE | 2024-02-21 22:36 | ED.RN ---
pt required 3 assist into family vehicle. both sons present and had to lift pt into vehicle.
--- NOTE | 2024-02-22 14:10 | CM.ED ---
Social Work Reason for referral: Home Health - needs set up with HHC for IV antibiotics at home Referral source: Dr. Yee Interventions occurring between approximately 1100 - 1410 on 02.22.2024 Chart reviewed. Noted patient was in the ED yesterday, 02.21.24, in the evening. Per chart review, noted original plan was to admit patient, however sometime after hospitalist consult in the ED, the family then decided to take the patient home. ED physician gave order for HHC to be set up for Home IV's. Patient did not go home with any IV access, so this also needs to be set up. Noted in discharge instructions, patient was sent home with oral Levaquin, and also instructions for IV Ertapenem 1G IV for 10 days. No prescription noted in chart/record for the IV antibiotic. Of initial concern by this procedure writer antibiotic setup does take coordination to set up through an infusion company, finding HH, and appearing to need IV access established. Typically Home IV infusion requires a PICC rather than a peripheral line. Brenda PELLETIER received call from patient's son Bulmaro stating that patient was sent home with oral antibiotics but this was not called in, as well as inquiring on status of setting up HHC/antibiotics for patient. Called [facility] and spoke with pharmacist who reports the prescription for Levaquin was sent through, but then pulled back, but pharmacy is able to fill if needed. Called patient's PCP office - Dr. Beard ([phone]). Message left then received call from Ana who reports patient was seen by PCP 02.21.2024 with recommendation for patient to be readmitted to the hospital; HHC is not something PCP would order or IV's. Ana asked to be called back with any updates. Called patient's son Bulmaro at [phone]. Bulmaro is listed as the POAHC in patient's record. Educated Bulmaro that IV's have not yet been set up due to needing an ordering doctor for the IV's and following for HHC. Educated to recommendation by the PCP for admission. Bulmaro reports patient has had IV's in the past, with [facility], so feels this can be set up, insisting this getting set up for patient without readmission to the hospital. Bulmaro reports to feel patient's nursing care needs are most adequately taken care of at home rather than a facility. Bulmaro made comment that this procedure writer needs to get the PCP to change recommendation and then commented again for this procedure writer to let Bulmaro know the timeframe of the HHC and IVs to start. Spoke with Dr. Aguilar who is working today. Collaboration on patient's care needs. Dr Aguilar looked patient's reactions to other medication and due to reaction to Cipro in the past, Levaquin should not be given. Dr. Aguilar reports urine culture from last evening showing gram negative rods, and in looking at past sensitivities, IV's seems to be the only option for patient's antibiotic coverage. Dr. Aguilar reports patient will need a PICC line placed, and due to nature of what is growing patient really does need to get these antibiotics started today. With this type of organism, Dr. Aguilar reports, there is a 40% mortality rate if reaches the bloodstream. Blood cultures are still pending. Called [facility] and updated pharmacy that Levaquin is not to be filled as per Dr. Aguilar. Collaboration with PRUDENCIO Vizcaino to see if a PICC, HHC, and infusion could be arranged today. Dr. Aguilar willing to write order for the antibiotics. This procedure writer called PCP office again and talked to nurse Noni. Noni reports Dr. Lucia is willing to write order for HHC, but is not willing to write for antibiotics, labs, etc. that come along with the IV ATB needs. Reports ID, such as Dr. Stuart needs to be consulted. Dr. Lucia would not be willing to initiate consult to ID at this juncture. Noni reports PCP does not have access to [facility] records. This procedure writer explored whether PCP would be willing to order more than the [facility] nurse if this procedure writer could get records. Noni reports PCP would only write for the HHC order. Spoke with Dr. Aguilar who would be willing to consult Dr. Forbes, but concern remains whether patient can get the IV's set up for this evening. If not, patient needs to come back to hospital for admission. Spoke with Carrillo FLANNERY CM who reports checked with [facility] and there is no staffing for today or tomorrow, 02.23.24. [facility] is checking to see if would have staffing to start on 02.24.24. May need to look at an alternate HHC if infusion piece can be set up before [facility] has staffing available. Per Carrillo, [facility] reports first does antibiotic needs to be given in hospital first. Carrillo unable to see that patient has been given ertapenem in the past. Carrillo reports radiology department has nurses for IV insertion, but would have to be called in. Barriers remain in pulling in ID, finding HHC, and getting infusion company on board for home delivery of IV antibiotics. Updated Dr. Aguilar who expressed understanding about HHC requirement for first dose in hospital, especially considering patient's allergy list to the antibiotics. Called patient's son Bulmaro again. Verified that Bulmaro had time to speak to this procedure writer. Educated that many calls and inquiries were made today to try to support IV ATBs at home for today. Educated this can be worked on and arranged, but not in the timeframe needed for patient to get dosing today. Educated that PCP is willing to order HHC, but need ID input for the antibiotics. Educated to [facility] limitations with staffing, possible need to look at other agencies family might be willing to work with, as well as need for first dose medication in hospital. Son reports patient had a dose of an antibiotic last evening, which this procedure writer found to be meropenem. What is noted in the d/c instruction is ertapenem. After brief search noted antibiotics to be in same class but also are different medications. Reinforced to the son that with patient's appearing list of interactions to antibiotics, as well as [facility] requirements to have first dose in hospital that it appears patient needs to come back in for the antibiotic administration and continuity of care. Educated Bulmaro to reports given to this procedure writer by Dr. Aguilar about preliminary urine cultures and provider reports about importance of taking care of this before the infection gets worse. Reinforced need for antibiotics as a safety issue. Educated that due to multiple barriers of needing first dose, getting infusion company, finding staffing for HHC, and a provider to follow for the antibiotics it would be safest for patient to come to hospital for admission and antibiotics until needed home care be arranged. This procedure writer acknowledged what family has been doing to care for patient at home, and validated the family's efforts to advocate for patient's care needs. Son reports patient and patient's grew up in the [facility] and the culture was to take care of the elderly and aging at home. Son reports we are on the same team and wants patient to have needs met. Explored with son what specific concerns the son has about the care at [facility] versus home, to help try to understand where the family is coming from. Son gave an example of not having a rolling commode chair at the hospital, how this impacted patient's comfort and sense of dignity and ease of care when patient was having a bowel movement last week. It is not as comfortable to have a bowel movement on the bed compared to over a toilet, like at home. Son also reported that patient needed a mini enema which took time to verify, which the son understands but then the next day when needed this was locked up and not readily available when patient needed it. Son reports the staff were kind and professional, the hesitation is more surrounding limited medical equipment for ADL/IADL care. Supportive listening offered, and commended on efforts of family in providing care to patient at home; working to provide dignity to patient at home. This procedure writer offered to call patient to communicate reasoning behind returning to the hospital. Son reports patient's communication is limited since having a stroke, so the son will go and talk with patient about coming back to the hospital. Son provided with this procedure writer's name and number to call should Bulmaro need to speak to this procedure writer again. Bulmaro reports will call this procedure writer if needs back up in convincing patient to come back to the hospital. This procedure writer informed Bulmaro that this procedure writer will make sure the acute RN CM and SW team know the plan for HHC and home IVs as soon as possible. Plan: Anticipate patient to return to [facility] for readmission for IV antibiotics, IV PICC insertion, likely ID consult, and HHC arrangements to assist with home infusion and nursing needs. -TRAVIS Donaldson
== END 2024-02-21 22:37 | disposition home or self-care (01) ==
PROVIDERS: Emergency Provider Emergency Medicine; PCP Preventive Medicine Occupational Medicine; Visit Provider Emergency Medicine
DX: R53.1 Weakness (principal); I48.91 Unspecified atrial fibrillation; I10 Essential (primary) hypertension; R50.9 Fever, unspecified; Z86.73 Personal history of transient ischemic attack (TIA), and cerebral infarction without residual deficits; Z79.899 Other long term (current) drug therapy; N40.0 Benign prostatic hyperplasia without lower urinary tract symptoms; F32.A Depression, unspecified; Z79.01 Long term (current) use of anticoagulants; Z86.718 Personal history of other venous thrombosis and embolism; Z95.0 Presence of cardiac pacemaker
CPT/HCPCS: 96361; 96365; 99285; 71045; 80053; 81001; 83605; 85025; 87040; 87077; 87086; 87088; 87631; J2185; P9612; A4216

== ENCOUNTER 2024-02-22 16:57 | Inpatient (IN) | payer MEDICARE, OTHER, SELFPAY ==
[2024-02-22] VITALS (10 sets, daily range): BP systolic 140–189; BP diastolic 63–90; PULSE 61–76; RESP 15–19; TEMP 36.6–36.9; O2SAT 95–98; BMI 37.4; BMI 35.4
--- NOTE | 2024-02-22 18:44 | EX.ED.DYSGE1 ---
HPI History of Present Illness Chief Complaint: Complaint Informant: patient Onset/Context/Timing Onset: Days Context: Gradual Onset Timing: Continuous Quality: Weakness Worsened by: Nothing Relieved by: Nothing Narrative Narrative: Patient presents with urinary tract infection that was diagnosed yesterday. Patient was seen here at that time. Patient was recommended to be admitted. However, patient preferred to go home. Patient was supposed to have arrangements made for home health and IV antibiotics. However, this was unable to be completed today. Patient was told to return to the emergency department for admission so that his home health and IV antibiotics can be arranged. Patient admits to some subjective fevers. Patient admits to some low back pain. 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 Depression Hypertension Atrial fibrillation Anterior communicating artery aneurysm Atrial fibrillation History of DVT (deep vein thrombosis) AAA (abdominal aortic aneurysm) without rupture Sick sinus syndrome Family history of hypertension History of spinal cord injury Paraplegia Premature ventricular contractions BPH (benign prostatic hypertrophy) Depression Cervical spinal stenosis Spinal cord injury Neurogenic bladder Degenerative joint disease (DJD) of lumbar spine Anemia Central cord syndrome Subluxation of C6-C7 cervical vertebrae 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.9) Home Medications ?Medication ?Instructions ?Recorded ?Last Taken ?Type lisinopril 20 mg tablet 20 mg PO DAILY blood pressure 06/24/15 02/11/24 History ascorbic acid (vitamin C) 500 mg 1,000 mg PO LUNCH supplement 08/17/21 02/11/24 History tablet tamsulosin 0.4 mg capsule 0.4 mg PO QHS Urine retention 30 09/03/21 02/11/24 Rx days #30 caps citalopram 20 mg tablet 20 mg PO QHS depression 12/04/21 02/11/24 History apixaban 5 mg tablet (Eliquis) 5 mg PO BID blood thinner #180 tabs 02/02/23 02/11/24 Rx carvedilol 12.5 mg tablet 12.5 mg PO BID BP 02/12/24 02/11/24 History cholecalciferol (vitamin D3) 25 25 mcg PO DAILY 02/12/24 Unknown History mcg (1,000 unit) capsule vitamin E 180 mg PO DAILY supplement 02/12/24 02/11/24 History docusate sodium 283 mg/5 mL enema 283 mg NE BID constipation 02/13/24 Unknown History (Enemeez) potassium chloride 10 mEq 20 meq (2 x 10 mEq) PO DAILYCM #60 02/17/24 Unknown Rx tablet,extended release(part/cryst) tabs gabapentin 600 mg tablet 600 mg PO BID 02/21/24 Unknown History Allergy/AdvReac Type Severity Reaction Status Date / Time ceftriaxone Allergy Rash Verified 02/22/24 17:06 ciprofloxacin (From Cipro) Allergy Hives Verified 02/22/24 17:06 sulfamethoxazole (From Allergy PT UNSURE Verified 02/22/24 17:06 Bactrim) OF REACTION trimethoprim (From Bactrim) Allergy PT UNSURE Verified 02/22/24 17:06 OF REACTION Family History Mother Breast cancer Cancer Brain cancer Sister Diabetes Hypertension CHF (congestive heart failure) Kidney disease Sister CHF (congestive heart failure) Cardiac defibrillator in situ Other Family history of hypertension Surgical History History of neck surgery History of permanent cardiac pacemaker placement S/P cervical spinal fusion Social History household members: spouse Smoking Status: Never smoker alcohol intake: current alcohol intake frequency: holidays/special occasions only Alcohol type: wine substance use type: does not use caffeine: Yes Type: coffee Number of servings: 1 what type of physical activity do you participate in: other details: Health point frequency: 1-2 times per week duration: 45-60 minutes/day seatbelt use: always do you feel safe at home: Yes ROS ROS ED Constitutional Constitutional ED: Reports fever(s) and subjective; Denies chills Eyes Eyes: Denies blurry vision or change in vision ENT ENT ED: Denies rhinorrhea or sore throat Cardiovascular Cardiovascular: Denies chest pain or palpitations Respiratory/Chest Respiratory/Chest: Denies cough or dyspnea Gastrointestinal Gastrointestinal: Denies nausea or vomiting Genitourinary Genitourinary ED: Denies dysuria or hematuria Musculoskeletal Musculoskeletal: Reports back pain; Denies neck pain Integumentary Denies abscess or rash Neurologic Neurologic: Denies headache(s) or weakness Allergic/Immunologic Allergic/Immunologic ED: Denies mouth swelling or urticaria EXAM Physical Exam Const Vital Signs: 02/22/24 16:58 02/22/24 17:05 02/22/24 18:05 Temperature 98.4 F 98.4 F 98.4 F Temperature Source Oral Oral Oral Pulse Rate 76 67 66 Respiratory Rate 18 15 18 Blood Pressure 164/82 H 164/82 H 173/78 H Blood Pressure Mean 109 109 109 Pulse Ox 97 96 96 Oxygen Delivery Method Room Air Room Air Room Air 02/22/24 19:00 02/22/24 20:00 Temperature 98.5 F 98.3 F Temperature Source Oral Oral Pulse Rate 63 61 Respiratory Rate 19 H 18 Blood Pressure 180/82 H 182/90 H Blood Pressure Mean 114 120 Pulse Ox 95 96 Oxygen Delivery Method Room Air Room Air Positive well nourished and well developed General Appearance ED: well developed and NAD HEENT Reports moist mucous membranes Neck supple and no JVD Resp normal respiratory effort Auscultation: diminished lung sounds diffuse Cardio regular rate Rhythm: abnormal rhythm irregularly irregular GI non-tender and non-distended Palpation: soft Neuro oriented x3, CN's II-XII intact bilaterally and no sensory deficits noted Sensorium / Orientation: alert Motor Exam: strength 5/5 throughout Psych mental status grossly normal MDM MDM MDM Narrative Medical decision making narrative: Differential diagnose includes urinary tract infection, sepsis, general weakness, and electrolyte abnormality. CBC will be obtained to assess for leukocytosis and anemia. Basic metabolic profile will be obtained to assess for electrolyte abnormality and renal function. Serum lactate will be obtained to assess for sepsis. History & Record Review Additional record(s) reviewed:: Prior ED visit and Prior labs Lab Data Lab results narrative: CBC was reviewed. White blood cell count was normal at 7.7. There is a mild anemia with a hemoglobin of 11.4 and hematocrit of 36.4. Platelets were normal. Basic metabolic profile was reviewed. Chloride was slightly elevated at 112. Anion gap was slightly low at 4. Remainder is within normal limits. Serum lactate was reviewed and was normal at 0.9. I also reviewed patient's urine culture from yesterday which grew a gram-negative irineo. Blood culture from yesterday is still pending. Labs: Laboratory Results - last 24 hr 02/22/24 02/22/24 17:05 18:50 WBC 7.7 RBC 4.01 L Hgb 11.4 L Hct 36.4 L MCV 90.8 MCH 28.4 MCHC 31.3 L D RDW Std Deviation 49.7 H RDW Coeff of Donna 14.8 H Plt Count 223 MPV 10.9 Immature Gran % (Auto) 0.400 Neut % (Auto) 78.6 H Lymph % (Auto) 11.9 L [place] % (Auto) 7.8 Eos % (Auto) 0.9 Baso % (Auto) 0.4 Absolute Neuts (auto) 6.1 Absolute Lymphs (auto) 0.92 Nucleated RBC % 0 Sodium 138 Potassium 3.9 Chloride 112 H Carbon Dioxide 23.0 Anion Gap 4 L BUN 16 Creatinine 0.90 Estim Creat Clear Calc 86.00 Est GFR (MDRD) Af Amer 105 Est GFR (MDRD) Non-Af 87 BUN/Creatinine Ratio 17.8 Glucose 125 H Lactic Acid 0.9 Calcium 8.9 Treatment and Re-Evaluation :: Patient was given a dose of meropenem here. Case was discussed with the hospitalist. She will admit the patient to the hospital for failure to thrive. Patient and family understand and are agreeable with the plan. All questions were answered. Discharge Plan Triage Chief Complaint: Complaint ED Provider: Doroteo Head Dx/Rx/DC Orders Clinical Impression: Adult failure to thrive, Urinary tract infection, Weakness, Neurogenic bladder Prescriptions: No Action citalopram 20 mg tablet 20 mg PO QHS lisinopril 20 MG tablet 20 mg PO DAILY Patient Comments: BLOOD PRESSURE ascorbic acid (vitamin C) 500 mg tablet 1,000 mg PO LUNCH tamsulosin 0.4 mg Capsule 0.4 mg PO QHS 30 Days Qty: 30 0RF carvedilol 12.5 mg Tablet 12.5 mg PO BID vitamin E [Vitamin E-400] 180 mg PO DAILY cholecalciferol (vitamin D3) 25 mcg (1,000 unit) capsule 25 mcg PO DAILY docusate sodium [Enemeez] 283 mg/5 mL enema 283 mg NE BID potassium chloride 10 mEq Tablet,Er Particles/Crystals 20 meq PO DAILYCM Qty: 60 0RF gabapentin 600 mg tablet 600 mg PO BID Eliquis 5 mg tablet 5 mg PO BID Qty: 180 4RF Primary Care Provider: Tunde Beard Referrals: Tunde Beard DO [Primary Care Provider] - Print Language: Croatian Disposition Disposition: Acute Care Hospital [facility]
[2024-02-22 19:06] LABS: Absolute Lymphocyte Count 0.92 X10^3/uL (0.83-4.51); Absolute Neutrophil Count 6.1 X10^3/uL (2.0-7.7); Basophil# 0.03 X10^3/uL; Basophil% 0.4 % (0-1); Eosinophil# 0.07 X10^3/uL; Eosinophils% 0.9 % (0-5); Hematocrit 36.4 % (40-54); Hemoglobin 11.4 g/dL (13.0-16.5); Lymphocyte # 0.92 X10^3/ul (0.83-4.51); Lymphocyte % 11.9 % (19-41); Mean Corp Hgb Conc 31.3 g/dL (32-36); Mean Corpuscular Hgb 28.4 pg (27.0-32.0); Mean Corpuscular Volume 90.8 fL (80-94); Mean Platelet Vol. 10.9 fl (6.2-12.0); Monocyte% 7.8 % (0-10); NRBC Flagged by Analyzer 0 % (0-5); Neutrophil # 6.05 X10^3/uL (2.7-7.7); Neutrophil % 78.6 % (47-70); Platelet Count 223 K/mm3 (150-450); RBC Distribution Width CV 14.8 % (11.6-14.6); RBC Distribution Width SD 49.7 fl (35.1-43.9); Red Blood Count 4.01 M/mm3 (4.6-6.2); White Blood Count 7.7 K/mm3 (4.4-11.0)
[2024-02-22] MEDS: Meropenem 1 GM in 0.9% Normal Saline (100mL MB+) 100 ML IV (19:14)
[2024-02-22 19:24] LABS: Anion Gap 4 (5-15); BUN 16 mg/dL (7-18); BUN/Creat Ratio 17.8 RATIO (10-20); Calcium,Total 8.9 mg/dL (8.5-10.1); Chloride 112 mmol/L (98-107); EST Glomerular Filtration Rate 87 mL/min (>60); Est Glom Filt Rate - Afr Amer 105 mL/min (>60); Glucose 125 mg/dL (74-106); Potassium 3.9 mmol/L (3.5-5.1); Sodium Level 138 mmol/L (136-145)
[2024-02-22 19:27] LABS: Lactic Acid 0.9 mmol/L (0.4-1.9)
--- NOTE | 2024-02-22 19:30 | CM.ED ---
Social Work Reason for intervention: Follow up to ED visit on 02.21.2024. Refer to [id number] for further details of intervention - re: coordination of HHC and IV ATB needs. Met with patient, son Bulmaro, and later joined by patient's . Introduced to self and role, following up regarding calls and communications earlier this date about Home IVs and HHC. Patient sleepy in bed, engaged in some discussion but focused on wanting to be admitted and move things along. Patient reported that does not really like to be in the hospital. Son expressed frustration with perception of longer wait time in the ED, as far as things getting started. Acknowledged patient is an important person and that all customers are important. Explained the process of the ED and at this time of day often brings multiple people in at the same time, and care has to be triaged based on acuity. Patient and family accepted this explanation. Son Bulmaro reports the patient and family are committed to patient staying the course at the hospital, until things are set and patient's care needs are addressed. Family expressed understanding that patient may not be discharged in 24 hours, and reiterated to be committed to getting patient the care needed. Patient's and also Bulmaro mentioned patient has been weaker since discharge home from the hospital last week, and wonders if current illness is affecting this. reports the hospital is the right place for patient at this time, due to weakness and not fair to the children the level of hands on help patient has needed. and son mentioned having to get a laura lift at home, and even a WC Van if patient's condition does not improve. During conversation Family confirms wish to have [facility], even after SW let family know may have to look at alternate HHC if there is no staffing. Patient's was comfortable with [facility] last time, and would be hesitant to accept a different company. Family would be agreeable to [facility] again for infusion needs (had this company last time) expressed interest in having POC and Living Will redone prior to discharge, should patient be able to participate in this task. (This assembly instructions writer reinforced that patient has to be able to participate). Broached short term SNF level of care. Patient has been to [facility] in the past and possibly the RU at [facility]. Handoff to Acute Care Management team. Plan: PRUDENCIO HERMAN/SW to follow on the acute unit. Anticipate home with HHC and IV antibiotics. -TRAVIS Donaldson
--- NOTE | 2024-02-22 19:39 | PCM.HP.STD ---
HPI - General General Date of Admission: 02/22/24 Date of Service: 02/22/24 Chief Complaint: Intermittent fevers, worsening weakness and debility. HPI Narrative The patient is a 78 y/o M w/ PMHx: Hx trauma w/ spinal cord injury w/ incomplete quadriplegia, decreased sensation, neurogenic bladder w/ self catheterization following fall, Hx CVA w/ chronic memory impairment, PAF, BPH with obstructive pathology, Hx Sick sinus syndrome s/p pacemaker placement, Hx VTE, HTN, HLD, Known anterior communicating artery aneurysm, AAA, Anxiety and Depression, Chronic anemia who presents to the [facility] ED on 02/22/2024 with diagnosis of urinary tract infection the day prior seen in the ED with recommended admission; however, he declined with preference to return to home with arrangements planned for home health and IV antibiotic therapy however this was unable to be completed on day presentation prompting referral back again to the ED for antibiotics with ongoing subjective fevers as well as lower back discomfort. Patient was recently discharged 02/17/2024 following admission for fever of unclear etiology Workup in the ED included T98.4, heart 76, BP 164/82, respiratory rate 18, 97% on room air with most recent repeat vital signs T98.5, heart rate 63, BP 180/82, respiratory rate 19, 95% room air, CBC with WBC 7.7, hemoglobin 0.4, MCV 90.8, platelet 223 without marked shift, BMP not marked appearing with chloride 112, glucose 125 otherwise not marked, lactic acid 0.9. From review of labs 02/15/2024 urine culture with noted 25,000-50,000 Pseudomonas with decent sensitivity patterns with 02/21/2024 urine culture with gram-negative rods noted 11,000-25,000 colony-forming units. Prior to discussions with the ED regarding specifics of the urine culture it was only noted that he had gram-negative rods in his urine and patient was administered IV meropenem. [facility] Medical History Neurogenic bladder Acute UTI Vision loss of right eye Anxiety Prostatic hypertrophy TIA (transient ischemic attack) Neurogenic bowel Sick sinus syndrome Neuropathy 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 Depression Hypertension Atrial fibrillation Anterior communicating artery aneurysm Atrial fibrillation History of DVT (deep vein thrombosis) AAA (abdominal aortic aneurysm) without rupture Sick sinus syndrome Family history of hypertension History of spinal cord injury Paraplegia Premature ventricular contractions BPH (benign prostatic hypertrophy) Depression Cervical spinal stenosis Spinal cord injury Neurogenic bladder Degenerative joint disease (DJD) of lumbar spine Anemia Central cord syndrome Subluxation of C6-C7 cervical vertebrae 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.9) Home Medications ?Medication ?Instructions ?Recorded ?Last Taken ?Type lisinopril 20 mg tablet 20 mg PO DAILY blood pressure 06/24/15 02/11/24 History ascorbic acid (vitamin C) 500 mg 1,000 mg PO LUNCH supplement 08/17/21 02/11/24 History tablet tamsulosin 0.4 mg capsule 0.4 mg PO QHS Urine retention 30 09/03/21 02/11/24 Rx days #30 caps citalopram 20 mg tablet 20 mg PO QHS depression 12/04/21 02/11/24 History apixaban 5 mg tablet (Eliquis) 5 mg PO BID blood thinner #180 tabs 02/02/23 02/11/24 Rx carvedilol 12.5 mg tablet 12.5 mg PO BID BP 02/12/24 02/11/24 History cholecalciferol (vitamin D3) 25 25 mcg PO DAILY 02/12/24 Unknown History mcg (1,000 unit) capsule vitamin E 180 mg PO DAILY supplement 02/12/24 02/11/24 History docusate sodium 283 mg/5 mL enema 283 mg MS BID constipation 02/13/24 Unknown History (Enemeez) potassium chloride 10 mEq 20 meq (2 x 10 mEq) PO DAILYCM #60 02/17/24 Unknown Rx tablet,extended release(part/cryst) tabs gabapentin 600 mg tablet 600 mg PO BID 02/21/24 Unknown History Allergy/AdvReac Type Severity Reaction Status Date / Time ceftriaxone Allergy Rash Verified 02/22/24 17:06 ciprofloxacin (From Cipro) Allergy Hives Verified 02/22/24 17:06 sulfamethoxazole (From Allergy PT UNSURE Verified 02/22/24 17:06 Bactrim) OF REACTION trimethoprim (From Bactrim) Allergy PT UNSURE Verified 02/22/24 17:06 OF REACTION Family History Mother Breast cancer Cancer Brain cancer Sister Diabetes Hypertension CHF (congestive heart failure) Kidney disease Sister CHF (congestive heart failure) Cardiac defibrillator in situ Other Family history of hypertension Surgical History History of neck surgery History of permanent cardiac pacemaker placement S/P cervical spinal fusion Social History household members: spouse Smoking Status: Never smoker alcohol intake: current alcohol intake frequency: holidays/special occasions only Alcohol type: wine substance use type: does not use caffeine: Yes Type: coffee Number of servings: 1 what type of physical activity do you participate in: other details: Health point frequency: 1-2 times per week duration: 45-60 minutes/day seatbelt use: always do you feel safe at home: Yes ROS ROS Narrative Admission Review of Systems: CONSTITUTIONAL: No weight loss, + fever, chills, weakness or fatigue. HEENT: + Chronic right eye vision loss. Eyes: No blurred vision, double vision or yellow sclerae. Ears, Nose, Throat: No hearing loss, sneezing, congestion, runny nose or sore throat. SKIN: No rash or itching, lesions, wounds. CARDIOVASCULAR: No chest pain, chest pressure or chest discomfort, palpitations, edema, orthopnea, syncopal events. RESPIRATORY: No shortness of breath, cough or sputum, wheezing, hemoptysis. GASTROINTESTINAL: No anorexia, nausea, vomiting or diarrhea, abdominal pain, melena, BRBPR. GENITOURINARY: No dysuria, frequency, urgency or retention. NEUROLOGICAL: + History trauma with spinal cord injury with incomplete quadriplegia, sensation decreased, neurogenic bladder. No headache, dizziness, syncope, change in bowel or bladder control, seizure. MUSCULOSKELETAL: + muscle, back pain, joint pain or stiffness. HEMATOLOGIC: + Chronic anemia, easy bleeding/bruising. LYMPHATICS: No enlarged nodes. No history of splenectomy. PSYCHIATRIC: + History of anxiety and depression. ENDOCRINOLOGIC: No reports of sweating, cold or heat intolerance. No polyuria or polydipsia. ALLERGIES: + History of hives. Vital Signs Vital Signs Vital Signs: 02/22/24 16:58 02/22/24 17:05 02/22/24 18:05 Temperature 98.4 F 98.4 F 98.4 F Temperature Source Oral Oral Oral Pulse Rate 76 67 66 Respiratory Rate 18 15 18 Blood Pressure 164/82 H 164/82 H 173/78 H Blood Pressure Mean 109 109 109 Pulse Ox 97 96 96 Oxygen Delivery Method Room Air Room Air Room Air 02/22/24 19:00 Temperature 98.5 F Temperature Source Oral Pulse Rate 63 Respiratory Rate 19 H Blood Pressure 180/82 H Blood Pressure Mean 114 Pulse Ox 95 Oxygen Delivery Method Room Air Weight Weight: 253 lb 12.033 oz Body Mass Index (BMI) 37.4 Physical Exam Narrative Physical Examination: General: Awake, alert, oriented to self, place and recent events, does have chronic memory impairment from previous stroke, remains cooperative, seated upright in the ED bed, fatigued. Skin: Normal color, normal turgor, no icterus, no cyanosis except occasional stage ecchymoses, abrasion. HEENT: AT/NC, EOM left eye intact, chronic right eye vision loss, L BEN, mildly dry MM, no carotid bruits or JVD noted. Lungs: Mildly diminished, greater bases, appropriate effort, no rales, ronchi or wheezing. Heart: Regular rate and rhythm; no gallop, rub audible. Abdomen: Soft, obese, NTTP, ND, distant normal BS, unable to appreciate HSM but on recent MRI patient does have noted mild enlargement. Extremities: No cyanosis, no clubbing, pedal to mid flor not markedly pitting chronic edema. Neurological: Patient awake, alert, oriented as noted, cognitive function baseline intact with chronic memory impairment, left pupil reactive to light and accommodation, cranial nerves grossly intact aside from vision deficits to the right, patient does have incomplete quadriplegia, decreased sensation baseline, strength severely globally decreased. Psychiatric: Affect appears flat, fatigued, no acute evidence of depressive or anxiety feelings but does have underlying history. Results Lab / Micro Data 02/22/24 17:05 02/22/24 17:05 Labs: Laboratory Results - last 24 hr 02/22/24 17:05: WBC 7.7, RBC 4.01 L, Hgb 11.4 L, Hct 36.4 L, MCV 90.8, MCH 28.4, MCHC 31.3 L D, RDW Std Deviation 49.7 H, RDW Coeff of Donna 14.8 H, Plt Count 223, MPV 10.9, Immature Gran % (Auto) 0.400, Neut % (Auto) 78.6 H, Lymph % (Auto) 11.9 L, [place] % (Auto) 7.8, Eos % (Auto) 0.9, Baso % (Auto) 0.4, Absolute Neuts (auto) 6.1, Absolute Lymphs (auto) 0.92, Nucleated RBC % 0, Sodium 138, Potassium 3.9, Chloride 112 H, Carbon Dioxide 23.0, Anion Gap 4 L, BUN 16, Creatinine 0.90, Estim Creat Clear Calc 86.00, Est GFR (MDRD) Af Amer 105, Est GFR (MDRD) Non-Af 87, BUN/Creatinine Ratio 17.8, Glucose 125 H, Calcium 8.9 02/22/24 18:50: Lactic Acid 0.9 Assessment & Plan Assessment/Plan (1) Adult failure to thrive: PLAN: Plan The patient is a 78 y/o M w/ PMHx: Hx trauma w/ spinal cord injury w/ incomplete quadriplegia, decreased sensation, neurogenic bladder w/ self catheterization following fall, Hx CVA w/ chronic memory impairment, PAF, BPH with obstructive pathology, Hx Sick sinus syndrome s/p pacemaker placement, Hx VTE, HTN, HLD, Known anterior communicating artery aneurysm, AAA, Anxiety and Depression, Chronic anemia who presents to the [facility] ED on 02/22/2024 with diagnosis of urinary tract infection the day prior seen in the ED with recommended admission; however, he declined with preference to return to home with arrangements planned for home health and IV antibiotic therapy however this was unable to be completed on day presentation prompting referral back again to the ED for antibiotics with ongoing subjective fevers as well as lower back discomfort. #1. Debility, weakness, reoccurrence reported fevers of unclear etiology with adult failure to thrive: Will admit to medical surgical floor, maintain on fall precautions, urine culture currently does not appear significant with only minimal colony-forming units and suspect likely patient is chronically colonized, will obtain CRP, ESR, procalcitonin and await complete urine culture, will also obtain blood culture x 2, initial plan for echocardiogram to evaluate valves however patient has a recent echocardiogram 02/14/2024 with noted EF 65% with no evidence of any diastolic dysfunction, mildly enlarged left atrium with mild aortic stenosis but no vegetations noted at that time however will await infectious disease input and low threshold to obtain DEANDRE if necessary, will obtain full respiratory viral panel additionally, will reconsult infectious disease, PT/OT/case management consulted for discharge planning. #2. Initial concern for gram-negative irineo UTI, however feel given review of cultures likely ruled out given only 11-25,000 colony-forming units, suspect will likely be Pseudomonas and patient is chronically colonized: Will hold off on further antibiotic therapy, patient in the ED administered meropenem based on previous cultures, will await ID input as noted. Will initiate catheterization regimen as from discussion with patient he is only been doing it 3 times a day recently and she reports this is only because he has had no marked output. #3. Hx trauma w/ spinal cord injury w/ incomplete quadriplegia, decreased sensation, neurogenic bladder w/ self catheterization following fall: Will maintain on fall and aspiration precautions, will continue patient home gabapentin regimen, will continue Flomax, will more aggressively catheterize as per discussion with she had only been catheterizing him 3 times daily because of his worsening debility/weakness and decreased urine output, PT/OT/case management consulted for discharge planning. #4. Hx CVA w/ chronic memory impairment: We will continue patient home apixaban, hypertensive regimen, not on statin therapy. #5. 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 #6. AAA: Noted history, unclear exact location, recent MRI of the abdomen with no reported aneurysm, no recent CTA abdomen and pelvis but no noted findings on CT abdomen and pelvis. #7. PAF: We will continue patient home Coreg and apixaban home regimen. #8. Hypertension: Continue home regimen including lisinopril, Coreg, PRN hydralazine. #9. Hyperlipidemia: Per current list does not appear to be on any regimen, no allergy listed, defer to outpatient. #10. Chronic normocytic anemia: Admission hemoglobin 9.4, MCV 90.8, baseline hemoglobin similar range, will continue to trend CBC. #11. Anxiety and depression: We will continue patient home citalopram regimen. #12. History sick sinus syndrome: Status post pacemaker placement, encourage continued outpatient evaluation and interrogation as previously arranged. #13. History of VTE: Patient with documented history of DVT, will continue patient home Eliquis regimen. #14. BPH with obstructive pathology: We will continue patient home Flomax regimen. #15. DVT prophylaxis: Will continue patient home Eliquis regimen. #16. CODE status: Patient YANELI is his who is present, unclear if living will is in place. Discussed CODE status at length including difference between FULL code, DNR-CCA and DNR-CC status. Following discussions about the differences in these status, requested DNR-CCA, no intubation, no aggressive measures. Advanced Care Planning Face to Face Time: 16 minutes. Charges/Coding Visit Charges Inpatient E&M: 18322 Init Hosp L3 Procedures Hospitalists Procedures: 72463 Advncd Care Plan 30 Min
[2024-02-22 21:01] LABS: Magnesium 2.4 mg/dL (1.6-2.6); Phosphorus 2.5 mg/dL (2.5-4.9)
[2024-02-22 21:09] LABS: Procalcitonin 0.48 ng/mL (0.00-0.09)
[2024-02-22] MEDS: hydrALAZINE 20 MG/ML Vial 10 MG IV (22:49)
[2024-02-22] MEDS: 0.9% Normal Saline (1000mL) 1,000 ML 100 ML IV (22:49)
[2024-02-22] MEDS: APIXABAN 5 MG TABLET PO (22:51)
[2024-02-22] MEDS: Gabapentin 600 MG Tablet PO (22:51)
[2024-02-22] MEDS: Carvedilol 12.5 MG Tablet PO (22:51)
[2024-02-22] MEDS: Tamsulosin HCl 0.4 MG Capsule PO (22:51)
[2024-02-22] MEDS: Citalopram 20 MG Tablet PO (22:51)
[2024-02-23 00:51] LABS: Erythrocyte Sedimentation Rate 45 mm/hr (0-20)
[2024-02-23 03:34] VITALS: BMI 35.5
[2024-02-23 04:00] VITALS: BP 150/80; PULSE 65; RESP 16; TEMP 36.7; O2SAT 98
[2024-02-23 05:40] LABS: Absolute Lymphocyte Count 0.98 X10^3/uL (0.83-4.51); Absolute Neutrophil Count 4.4 X10^3/uL (2.0-7.7); Basophil# 0.04 X10^3/uL; Basophil% 0.7 % (0-1); Eosinophil# 0.09 X10^3/uL; Eosinophils% 1.5 % (0-5); Hematocrit 33.4 % (40-54); Hemoglobin 10.8 g/dL (13.0-16.5); Lymphocyte # 0.98 X10^3/ul (0.83-4.51); Lymphocyte % 16.4 % (19-41); Mean Corp Hgb Conc 32.3 g/dL (32-36); Mean Corpuscular Hgb 28.6 pg (27.0-32.0); Mean Corpuscular Volume 88.6 fL (80-94); Mean Platelet Vol. 9.9 fl (6.2-12.0); Monocyte# 0.41 X10^3/uL; Monocyte% 6.9 % (0-10); NRBC Flagged by Analyzer 0 % (0-5); Neutrophil # 4.39 X10^3/uL (2.7-7.7); Neutrophil % 73.5 % (47-70); Platelet Count 209 K/mm3 (150-450); RBC Distribution Width CV 14.7 % (11.6-14.6); RBC Distribution Width SD 47.8 fl (35.1-43.9); Red Blood Count 3.77 M/mm3 (4.6-6.2)
[2024-02-23 06:18] LABS: ALB/GLOB Ratio 0.8 RATIO (0.9-2.4); AST(SGOT) 20 U/L (15-37); Alanine Aminotransfer ALT/SGPT 31 U/L (16-61); Albumin, Serum 2.9 g/dL (3.2-5.0); Alkaline Phosphatase 48 U/L (45-117); Anion Gap 5 (5-15); BUN 16 mg/dL (7-18); BUN/Creat Ratio 19.7 RATIO (10-20); Calcium,Total 8.6 mg/dL (8.5-10.1); Chloride 114 mmol/L (98-107); Creatinine, Serum 0.81 mg/dL (0.70-1.30); EST Glomerular Filtration Rate 98 mL/min (>60); Est Glom Filt Rate - Afr Amer 118 mL/min (>60); Estimated Creatinine Clearance 92.86 ml/min; Globulin 3.8 g/dL (2.2-4.2); Glucose 96 mg/dL (74-106); Potassium 3.3 mmol/L (3.5-5.1); Protein, Total 6.7 g/dL (6.4-8.2); Sodium Level 142 mmol/L (136-145)
[2024-02-23 08:18] VITALS: BP 161/86; PULSE 68; RESP 14; TEMP 36.7; O2SAT 95
[2024-02-23] MEDS: Potassium Chloride Oral Tablet 20 MEQ PO (08:28)
[2024-02-23] MEDS: Carvedilol 12.5 MG Tablet PO ×2 (08:28→16:18)
[2024-02-23] MEDS: APIXABAN 5 MG TABLET PO ×2 (08:28→21:01)
[2024-02-23] MEDS: Lisinopril 20 MG Tablet PO (08:28)
[2024-02-23] MEDS: Nystatin Powder 15gm Bottle 1 APPLIC TOPICAL ×2 (08:29→21:01)
[2024-02-23] MEDS: Menthol/Lanolin/Calamine/Znox 113 GM Tube 1 APPLIC TOPICAL ×2 (08:29→21:00)
[2024-02-23] MEDS: Gabapentin 600 MG Tablet PO ×2 (08:31→21:01)
--- NOTE | 2024-02-23 09:00 | CASEMGMT ---
Addendum entered by Saskia Bruce 02/23/24 15:10: PRUDENCIO HERMAN back into pt room for assessment and [place] form. Pt states he normally signs his own documents but wants to wait for his . Pt went to a medical appt of her own. RN VIRGIL to check back. Notified Mary Kay at [facility] that pt will not dc today. Addendum entered by Saskia Bruce 02/23/24 15:08: 1200-RN VIRGIL into pt room to introduce self and discuss dc planning. Pt states he is very sleepy and would like RN VIRGIL to come back when his is present. Made pt aware that this RN VIRGIL received handoff that pt would like [facility] and [facility] for infusion if needed. Pt states he thinks that is the case, but cannot state for sure. PRUDENCIO HERMAN to check back. Addendum entered by Saskia Bruce 02/23/24 11:23: Received call from Mary Kay at [facility], they can see pt tomorrow should pt dc today. She is aware that ID has been consulted and has not seen, will update when information received. Original Note: TC to [facility] to see if able to accept pt for care tomorrow if need be per notes and handoff although per H&P it is unclear if pt will dc this date or not. Left vm for Marcy via intake line.
--- NOTE | 2024-02-23 10:21 | PN.HOSP_ITS ---
Subjective Subjective Resting comfortably, no major issues overnight Objective Data Objective Data Vital Signs: Vital Signs Temp Pulse Resp BP Pulse Ox O2 Del Method 98.0 F 68 14 161/86 H 95 Room Air 02/23/24 08:18 02/23/24 08:18 02/23/24 08:18 02/23/24 08:18 02/23/24 08:18 02/23/24 08:18 Oxygen Delivery Method Room Air Weight: 239 lb 15.923 oz Body Mass Index (BMI) 35.5 Intake & Output: Intake and Output for Last 24 Hours 02/22/24 02/23/24 02/24/24 03:59 03:59 03:59 Intake Total 120 / 120 960 / 960 Output Total 250 / 250 Balance 120 / 120 710 / 710 Lab / Micro Data 02/23/24 05:16 02/23/24 05:16 Labs: Laboratory Results - last 24 hr 02/22/24 17:05: WBC 7.7, RBC 4.01 L, Hgb 11.4 L, Hct 36.4 L, MCV 90.8, MCH 28.4, MCHC 31.3 L D, RDW Std Deviation 49.7 H, RDW Coeff of Donna 14.8 H, Plt Count 223, MPV 10.9, Immature Gran % (Auto) 0.400, Neut % (Auto) 78.6 H, Lymph % (Auto) 11.9 L, [place] % (Auto) 7.8, Eos % (Auto) 0.9, Baso % (Auto) 0.4, Absolute Neuts (auto) 6.1, Absolute Lymphs (auto) 0.92, Nucleated RBC % 0, ESR 45 H, Sodium 138, Potassium 3.9, Chloride 112 H, Carbon Dioxide 23.0, Anion Gap 4 L, BUN 16, Creatinine 0.90, Estim Creat Clear Calc 86.00, Est GFR (MDRD) Af Amer 105, Est GFR (MDRD) Non-Af 87, BUN/Creatinine Ratio 17.8, Glucose 125 H, Calcium 8.9, C- React Prot Ext Range 95.80 H 02/22/24 18:50: Lactic Acid 0.9 02/22/24 20:35: Phosphorus 2.5, Magnesium 2.4, Procalcitonin 0.48 H 02/23/24 05:16: WBC 6.0, RBC 3.77 L, Hgb 10.8 L, Hct 33.4 L, MCV 88.6, MCH 28.6, MCHC 32.3, RDW Std Deviation 47.8 H, RDW Coeff of Donna 14.7 H, Plt Count 209, MPV 9.9, Immature Gran % (Auto) 1.000 H, Neut % (Auto) 73.5 H, Lymph % (Auto) 16.4 L , [place] % (Auto) 6.9, Eos % (Auto) 1.5, Baso % (Auto) 0.7, Absolute Neuts (auto) 4.4, Absolute Lymphs (auto) 0.98, Nucleated RBC % 0, Sodium 142, Potassium 3.3 L , Chloride 114 H, Carbon Dioxide 23.0, Anion Gap 5, BUN 16, Creatinine 0.81, Estim Creat Clear Calc 92.86, Est GFR (MDRD) Af Amer 118, Est GFR (MDRD) Non-Af 98, BUN/Creatinine Ratio 19.7, Glucose 96, Calcium 8.6, Total Bilirubin 0.90, AST 20, ALT 31, Alkaline Phosphatase 48, Total Protein 6.7, Albumin 2.9 L, Globulin 3.8, Albumin/Globulin Ratio 0.8 L Micro: Microbiology 02/22/24 22:45 Mucosa - Nasopharyngeal Respiratory Panel (PCR) - Final Physical Exam Narrative General: Alert, Oriented x3, Cooperative, No apparent distress HEENT: Atraumatic, PERRLA, EOMI, Normocephalic Oral: Moist Mucosa Neck: Supple, No JVD Lungs: Diminished, Normal air movement, No rhonchi, No wheeze, No rales Cardiovascular: Regular rate, Regular Rhythm, Normal S1, Normal S2, No murmurs Abdomen: Soft, Non Tender, Non-Distended, No Hepato-splenomegaly Extremities: No edema, Capillary Refill Less than 3 Seconds Skin: No rashes, No breakdown Musculoskeletal: No Tenderness to Palpation of Joints or Extremities Neurological: No focal neurological deficits, chronic neurological changes from spinal stenosis and previous CVA Psych/Mental Status: Normal Affect, Appropriate Assessment & Plan Assessment/Plan (1) Adult failure to thrive: PLAN: Plan 1. Debility and weakness secondary to a possible UTI/history of spinal cord injury ? Urine culture with gram-negative irineo of 50-80,000 CFU ? He is allergic to Rocephin, Cipro, Bactrim therefore we will start Macrobid ? PT/OT 2. Paroxysmal A-fib/essential HTN/HLD/history of sick sinus syndrome status post pacemaker placement ? Continue with Eliquis ? Continue with his home blood pressure medications ? Continue with his home cholesterol medications ? Will monitor and make adjustments as necessary ? Echo on 02/14/2024 with an EF of 65% no evidence of diastolic dysfunction with mild aortic stenosis 3. History of CVA with chronic memory impairment/known anterior communicating artery aneurysm ? Appears to be at baseline ? Will continue to monitor 4. Anxiety/depression ? Stable ? Continue with his home medications 5. BPH with obstructive pathology ? Continue with Flomax ? Given his previous spinal cord injury he does do some self catheterization DVT: Eliquis Charges/Coding Visit Charges Inpatient E&M: 20255 Subs Hosp L2
[2024-02-23] MEDS: 0.9% Saline Lock 10 ML Syringe IV ×2 (11:47→14:43)
[2024-02-23] MEDS: Nitrofurantoin Macrocrystals 100 MG Capsule PO (11:48)
--- NOTE | 2024-02-23 13:35 | PCM.CONS.GEN ---
Assessment & Plan Assessment/Plan (1) Urinary tract infection: PLAN: Ucx with 50-80k GNR, recent ucx with PsA. Given boaz in ED. Procal 0.5. UA with 10-25 wbc. Will continue boaz for now. Will follow, thank you HPI Consult Data Date of Consult: 02/23/24 HPI Narrative Reason for Consultation: fever HPI Narrative: DANNY AQUINO, is a 78 M with h/o incomplete paraplegia, stroke, BPH with reported outpt fever. Given meropenem in ED x1. Feeling ok today, no abd pain, no chest pain or cough, no dysuria. Full ROS performed and neg except as noted above. 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 Depression Hypertension Atrial fibrillation Anterior communicating artery aneurysm Atrial fibrillation History of DVT (deep vein thrombosis) AAA (abdominal aortic aneurysm) without rupture Sick sinus syndrome Family history of hypertension History of spinal cord injury Paraplegia Premature ventricular contractions BPH (benign prostatic hypertrophy) Depression Cervical spinal stenosis Spinal cord injury Neurogenic bladder Degenerative joint disease (DJD) of lumbar spine Anemia Central cord syndrome Subluxation of C6-C7 cervical vertebrae 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.9) Home Medications ?Medication ?Instructions ?Recorded ?Last Taken ?Type lisinopril 20 mg tablet 20 mg PO DAILY blood pressure 06/24/15 02/11/24 History ascorbic acid (vitamin C) 500 mg 1,000 mg PO LUNCH supplement 08/17/21 02/11/24 History tablet tamsulosin 0.4 mg capsule 0.4 mg PO QHS Urine retention 30 09/03/21 02/11/24 Rx days #30 caps citalopram 20 mg tablet 20 mg PO QHS depression 12/04/21 02/11/24 History apixaban 5 mg tablet (Eliquis) 5 mg PO BID blood thinner #180 tabs 02/02/23 02/11/24 Rx carvedilol 12.5 mg tablet 12.5 mg PO BID BP 02/12/24 02/11/24 History cholecalciferol (vitamin D3) 25 25 mcg PO DAILY 02/12/24 Unknown History mcg (1,000 unit) capsule vitamin E 180 mg PO DAILY supplement 02/12/24 02/11/24 History docusate sodium 283 mg/5 mL enema 283 mg GA BID constipation 02/13/24 Unknown History (Enemeez) potassium chloride 10 mEq 20 meq (2 x 10 mEq) PO DAILYCM #60 02/17/24 Unknown Rx tablet,extended release(part/cryst) tabs gabapentin 600 mg tablet 600 mg PO BID 02/21/24 Unknown History Allergy/AdvReac Type Severity Reaction Status Date / Time ceftriaxone Allergy Rash Verified 02/22/24 17:06 ciprofloxacin (From Cipro) Allergy Hives Verified 02/22/24 17:06 sulfamethoxazole (From Allergy PT UNSURE Verified 02/22/24 17:06 Bactrim) OF REACTION trimethoprim (From Bactrim) Allergy PT UNSURE Verified 02/22/24 17:06 OF REACTION Family History Mother Breast cancer Cancer Brain cancer Sister Diabetes Hypertension CHF (congestive heart failure) Kidney disease Sister CHF (congestive heart failure) Cardiac defibrillator in situ Other Family history of hypertension Surgical History History of neck surgery History of permanent cardiac pacemaker placement S/P cervical spinal fusion Social History household members: spouse Smoking Status: Never smoker alcohol intake: current alcohol intake frequency: holidays/special occasions only Alcohol type: wine substance use type: does not use caffeine: Yes Type: coffee Number of servings: 1 what type of physical activity do you participate in: other details: Health point frequency: 1-2 times per week duration: 45-60 minutes/day seatbelt use: always do you feel safe at home: Yes Physical Exam Const alert and no apparent distress General Appearance: cooperative HEENT normocephalic and head/scalp atraumatic Eyes PERRL and EOMs intact bilaterally Neck supple and No nodes Resp normal air movement and clear to auscultation bilaterally Cardio regular rate and regular rhythm GI soft to palpation, non-tender and non-distended Extremity General Extremity: Negative for edema Skin no rashes or lesions noted Neuro Neuro Narrative: some dysarthria, incomplete quadriplegia Lab / Micro Data Attestation: I reviewed the patient's lab results. 02/23/24 05:16 02/23/24 05:16 Labs: Laboratory Results - last 24 hr 02/22/24 17:05: WBC 7.7, RBC 4.01 L, Hgb 11.4 L, Hct 36.4 L, MCV 90.8, MCH 28.4, MCHC 31.3 L D, RDW Std Deviation 49.7 H, RDW Coeff of Donna 14.8 H, Plt Count 223, MPV 10.9, Immature Gran % (Auto) 0.400, Neut % (Auto) 78.6 H, Lymph % (Auto) 11.9 L, [place] % (Auto) 7.8, Eos % (Auto) 0.9, Baso % (Auto) 0.4, Absolute Neuts (auto) 6.1, Absolute Lymphs (auto) 0.92, Nucleated RBC % 0, ESR 45 H, Sodium 138, Potassium 3.9, Chloride 112 H, Carbon Dioxide 23.0, Anion Gap 4 L, BUN 16, Creatinine 0.90, Estim Creat Clear Calc 86.00, Est GFR (MDRD) Af Amer 105, Est GFR (MDRD) Non-Af 87, BUN/Creatinine Ratio 17.8, Glucose 125 H, Calcium 8.9, C-React Prot Ext Range 95.80 H 02/22/24 18:50: Lactic Acid 0.9 02/22/24 20:35: Phosphorus 2.5, Magnesium 2.4, Procalcitonin 0.48 H 02/23/24 05:16: WBC 6.0, RBC 3.77 L, Hgb 10.8 L, Hct 33.4 L, MCV 88.6, MCH 28.6, MCHC 32.3, RDW Std Deviation 47.8 H, RDW Coeff of Donna 14.7 H, Plt Count 209, MPV 9.9, Immature Gran % (Auto) 1.000 H, Neut % (Auto) 73.5 H, Lymph % (Auto) 16.4 L, [place] % (Auto) 6.9, Eos % (Auto) 1.5, Baso % (Auto) 0.7, Absolute Neuts (auto) 4.4, Absolute Lymphs (auto) 0.98, Nucleated RBC % 0, Sodium 142, Potassium 3.3 L, Chloride 114 H, Carbon Dioxide 23.0, Anion Gap 5, BUN 16, Creatinine 0.81, Estim Creat Clear Calc 92.86, Est GFR (MDRD) Af Amer 118, Est GFR (MDRD) Non-Af 98, BUN/Creatinine Ratio 19.7, Glucose 96, Calcium 8.6, Total Bilirubin 0.90, AST 20, ALT 31, Alkaline Phosphatase 48, Total Protein 6.7, Albumin 2.9 L, Globulin 3.8, Albumin/Globulin Ratio 0.8 L Micro: Microbiology 02/22/24 22:45 Mucosa - Nasopharyngeal Respiratory Panel (PCR) - Final
[2024-02-23 14:02] VITALS: BP 166/86; PULSE 65; RESP 18; TEMP 36.9; O2SAT 97
[2024-02-23] MEDS: Meropenem 500 MG in 0.9% Normal Saline (50mL MB+) 50 ML 100 MG IV ×2 (14:43→20:56)
--- NOTE | 2024-02-23 16:08 | CASEMGMT ---
Addendum entered by Saskia Bruce 02/23/24 16:29: Pt dc'd from PCU on 02/17/24, admitted 02/13/24 for syncope. Pt was dc'd home without antibiotic as urine grew out small numbers of bacteria. Pt dc'd home with family, no services set up. Pt readmitted for Adult FTT and FUO reported. ID is consulted, therapies ordered. Addendum entered by Saskia Bruce 02/23/24 16:26: Pt status just changed to inpatient. Pt is a readmission. Original Note: PRUDENCIO HERMAN Assessment: TC to son for initial transition planning/care coordination assessment. RN VIRGIL introduced self and role at [facility], pt son voices understanding and consents to assessment. Care providers, pharmacy, and demographics verified/updated. Admitting Dx: Adult FTT, FUO Reported Strata Score: 3 PCP:Kisha Specialists:uro, cardio- son could not recall Preferred Pharmacy: [facility] Insurance: [facility] Supplement Prescription Benefit: yes LNOK: Nuzhat Barron, ; Bartolo Barron, son and DPOA Living Arrangements: Pt lives with in a single story home with a ramp to enter. Pt attends to pt ADL and IADLs. Pt and are able to manage pt unless pt is ill then sons assist. Transportation: Pt family transports him to medical appts. DME:walker, electric w/c, hospital bed, walk in shower HHC/SNF: Pt has had [facility]HC in the past, denies SNF stays. Pt son states that he would like pt to go home with HHC from [facility] as he has had in the past. He denies need for a list of other options. They have used [facility] in the past and want to use again if needed. Pt son states they are able to perform IVs at home. ID consulted and pt to stay on boaz for now. Pt states no further concerns/needs. CM to follow. Advised pt to ask CM if any further question/concerns/needs arise, voices understanding. Pt Son Goal: Home with [facility] HHC Plan: [facility] HHC at mo. They have accepted. Updated Mary Kay that pt will not dc today. Raj FLANNERY CM
--- NOTE | 2024-02-23 16:21 | CHAPLAIN ---
Type of Pastoral Visit _x__ Initial Visit ___ Follow-up Visit ___ On-call Visit ___ General Patient Visit ___ Spiritual Assessment ___ Family Conference ___ Bereavement ___ Rapid Response ___ Code Blue ___ Other (describe below) Pastoral Care Referral From _x__ Patient ___ Family ___ Nurse ___ Physician ___ Casing Cleaner ___ Top Cleaner ___ Other (describe below) Sacrament/Intervention _x__ Active listening ___ Anointing ___ Protestant ___ Bereavement ___ Communion ___ Angie exploration ___ ___ Life review _x__ Prayer ___ Reconciliation ___ Sacrament of Sick ___ Supportive presence ___ Wedding ___ Other (describe below) Pastoral Comments patient was seen recently and is welcoming; pt answers questions but is slow to respond and keeps his eyes closed; pt admits to being so tired; pt also welcomes prayer and affirms angie in God
[2024-02-23 20:51] VITALS: BP 177/87; PULSE 64; RESP 18; TEMP 36.8; O2SAT 97
[2024-02-23 20:57] VITALS: BP 177/87; PULSE 64
[2024-02-23] MEDS: hydrALAZINE 20 MG/ML Vial 10 MG IV (20:57)
[2024-02-23] MEDS: Citalopram 20 MG Tablet PO (21:00)
[2024-02-23] MEDS: Tamsulosin HCl 0.4 MG Capsule PO (21:01)
[2024-02-23 21:07] VITALS: BP 137/69
[2024-02-24 03:00] VITALS: BP 155/85; PULSE 62; RESP 18; TEMP 36.4; O2SAT 96
[2024-02-24] MEDS: Meropenem 500 MG in 0.9% Normal Saline (50mL MB+) 50 ML 100 MG IV ×3 (05:20→21:49)
[2024-02-24 06:00] VITALS: BMI 35.7
[2024-02-24 06:19] LABS: Absolute Lymphocyte Count 1.01 X10^3/uL (0.83-4.51); Absolute Neutrophil Count 3.9 X10^3/uL (2.0-7.7); Basophil# 0.04 X10^3/uL; Basophil% 0.7 % (0-1); Eosinophil# 0.11 X10^3/uL; Hematocrit 34.1 % (40-54); Hemoglobin 10.9 g/dL (13.0-16.5); Lymphocyte # 1.01 X10^3/ul (0.83-4.51); Lymphocyte % 18.5 % (19-41); Mean Corpuscular Hgb 28.8 pg (27.0-32.0); Mean Platelet Vol. 9.7 fl (6.2-12.0); Monocyte# 0.35 X10^3/uL; Monocyte% 6.4 % (0-10); NRBC Flagged by Analyzer 0 % (0-5); Neutrophil # 3.91 X10^3/uL (2.7-7.7); Neutrophil % 71.8 % (47-70); Platelet Count 202 K/mm3 (150-450); RBC Distribution Width CV 15.1 % (11.6-14.6); RBC Distribution Width SD 49.6 fl (35.1-43.9); Red Blood Count 3.79 M/mm3 (4.6-6.2); White Blood Count 5.5 K/mm3 (4.4-11.0)
[2024-02-24 06:46] LABS: Anion Gap 4 (5-15); BUN 21 mg/dL (7-18); BUN/Creat Ratio 24.9 RATIO (10-20); Calcium,Total 8.7 mg/dL (8.5-10.1); Chloride 115 mmol/L (98-107); Creatinine, Serum 0.84 mg/dL (0.70-1.30); EST Glomerular Filtration Rate 94 mL/min (>60); Est Glom Filt Rate - Afr Amer 113 mL/min (>60); Estimated Creatinine Clearance 89.85 ml/min; Glucose 104 mg/dL (74-106); Potassium 3.7 mmol/L (3.5-5.1); Sodium Level 141 mmol/L (136-145)
[2024-02-24 06:58] VITALS: O2SAT 96
[2024-02-24] MEDS: APIXABAN 5 MG TABLET PO ×2 (09:05→20:50)
[2024-02-24] MEDS: Potassium Chloride Oral Tablet 20 MEQ PO (09:05)
[2024-02-24] MEDS: Menthol/Lanolin/Calamine/Znox 113 GM Tube 1 APPLIC TOPICAL ×2 (09:06→20:51)
[2024-02-24] MEDS: Lisinopril 20 MG Tablet PO (09:06)
[2024-02-24] MEDS: Carvedilol 12.5 MG Tablet PO ×2 (09:06→17:28)
[2024-02-24] MEDS: Nystatin Powder 15gm Bottle 1 APPLIC TOPICAL ×2 (09:07→20:50)
[2024-02-24] MEDS: Gabapentin 600 MG Tablet PO ×2 (09:10→20:53)
[2024-02-24 09:30] VITALS: BP 165/82; PULSE 65; RESP 18; TEMP 36.6; O2SAT 93
--- NOTE | 2024-02-24 10:47 | PCM.PN.ID ---
Physical Exam Narrative Feeling better, no fever, no abd pain Const alert and no apparent distress General Appearance: cooperative Resp normal air movement and clear to auscultation bilaterally Cardio regular rate and regular rhythm GI soft to palpation, non-tender and non-distended Skin no rashes or lesions noted ID ID: Route of nutrition/ use of supplements: [] Nutritional Intake: [] IV Site: [] Mejía Catheter: [] Assessment & Plan Assessment/Plan (1) Urinary tract infection: PLAN: Ucx with 50-80k GNR, recent ucx with PsA. Given boaz in ED. Procal 0.5. UA with 10-25 wbc. Will continue boaz for now. Feeling better. Will follow
[2024-02-24 12:30] VITALS: BP 145/69
--- NOTE | 2024-02-24 12:39 | PCM.PN.HOSP ---
Subjective Subjective No issues overnight, feeling a little bit weak Objective Data Objective Data Vital Signs: Vital Signs Temp Pulse Resp BP Pulse Ox O2 Del Method 97.9 F 65 18 145/69 H 93 Room Air 02/24/24 09:30 02/24/24 09:30 02/24/24 09:30 02/24/24 12:30 02/24/24 09:30 02/24/24 09:30 Oxygen Delivery Method Room Air Weight: 241 lb 10.026 oz Body Mass Index (BMI) 35.7 Intake & Output: Intake and Output for Last 24 Hours 02/23/24 02/24/24 02/25/24 03:59 03:59 03:59 Intake Total 120 / 120 1120 / 1120 410 / 410 Output Total 900 / 900 600 / 600 Balance 120 / 120 220 / 220 -190 / -190 Lab / Micro Data 02/24/24 06:10 02/24/24 06:10 Labs: Laboratory Results - last 24 hr 02/24/24 06:10: WBC 5.5, RBC 3.79 L, Hgb 10.9 L, Hct 34.1 L, MCV 90.0, MCH 28.8, MCHC 32.0, RDW Std Deviation 49.6 H, RDW Coeff of Donna 15.1 H, Plt Count 202, MPV 9.7, Immature Gran % (Auto) 0.600, Neut % (Auto) 71.8 H, Lymph % (Auto) 18.5 L, [place] % (Auto) 6.4, Eos % (Auto) 2.0, Baso % (Auto) 0.7, Absolute Neuts (auto) 3.9, Absolute Lymphs (auto) 1.01, Nucleated RBC % 0, Sodium 141, Potassium 3.7, Chloride 115 H, Carbon Dioxide 22.0, Anion Gap 4 L, BUN 21 H, Creatinine 0.84, Estim Creat Clear Calc 89.85, Est GFR (MDRD) Af Amer 113, Est GFR (MDRD) Non-Af 94, BUN/Creatinine Ratio 24.9 H, Glucose 104, Calcium 8.7 Micro: Microbiology 02/22/24 22:45 Mucosa - Nasopharyngeal Respiratory Panel (PCR) - Final Physical Exam Narrative General: Alert, Oriented x3, Cooperative, No apparent distress HEENT: Atraumatic, PERRLA, EOMI, Normocephalic Oral: Moist Mucosa Neck: Supple, No JVD Lungs: Diminished, Normal air movement, No rhonchi, No wheeze, No rales Cardiovascular: Regular rate, Regular Rhythm, Normal S1, Normal S2, No murmurs Abdomen: Soft, Non Tender, Non-Distended, No Hepato-splenomegaly Extremities: No edema, Capillary Refill Less than 3 Seconds Skin: No rashes, No breakdown Musculoskeletal: No Tenderness to Palpation of Joints or Extremities Neurological: No focal neurological deficits, chronic neurological changes from spinal stenosis and previous CVA Psych/Mental Status: Normal Affect, Appropriate Assessment & Plan Assessment/Plan (1) Adult failure to thrive: PLAN: Plan 1. Debility and weakness secondary to a Pseudomonas fluorescence UTI/history of spinal cord injury ? Urine culture with gram-negative irineo of 50-80,000 CFU ? He is allergic to Rocephin, Cipro, Bactrim, infectious disease was consulted on admission, transition to meropenem ? PT/OT 2. Paroxysmal A-fib/essential HTN/HLD/history of sick sinus syndrome status post pacemaker placement ? Continue with Eliquis ? Continue with his home blood pressure medications ? Continue with his home cholesterol medications ? Will monitor and make adjustments as necessary ? Echo on 02/14/2024 with an EF of 65% no evidence of diastolic dysfunction with mild aortic stenosis 3. History of CVA with chronic memory impairment/known anterior communicating artery aneurysm ? Appears to be at baseline ? Will continue to monitor 4. Anxiety/depression ? Stable ? Continue with his home medications 5. BPH with obstructive pathology ? Continue with Flomax ? Given his previous spinal cord injury he does do some self catheterization DVT: Eliquis Charges/Coding Visit Charges Inpatient E&M: 22098 Subs Hosp L2
--- NOTE | 2024-02-24 14:23 | CASEMGMT ---
Updated [facility] that pt will not dc today.
--- NOTE | 2024-02-24 14:49 | CASEMGMT ---
Social Work- SW met with pt to discuss advanced directives. Pt reported that he wanted to name his son Alex, but was uncertain whom else pt would want to name. Pt wanted to think about his choice. SW remains available to follow. KEO He
[2024-02-24 15:41] VITALS: BP 156/68; PULSE 58; RESP 18; TEMP 36.7; O2SAT 95
[2024-02-24] MEDS: Citalopram 20 MG Tablet PO (20:50)
[2024-02-24] MEDS: Tamsulosin HCl 0.4 MG Capsule PO (20:50)
[2024-02-24 21:06] VITALS: BP 149/77; PULSE 69; RESP 18; TEMP 36.6; O2SAT 97
[2024-02-25] VITALS (7 sets, daily range): BP systolic 120–172; BP diastolic 49–85; PULSE 63–73; RESP 16–18; TEMP 36.6–37.1; O2SAT 94–96; BMI 36.1
[2024-02-25] MEDS: Meropenem 500 MG in 0.9% Normal Saline (50mL MB+) 50 ML 100 MG IV ×3 (06:02→22:10)
[2024-02-25] MEDS: 0.9% Saline Lock 10 ML Syringe IV ×3 (06:03→13:23)
[2024-02-25 07:31] LABS: Absolute Lymphocyte Count 0.97 X10^3/uL (0.83-4.51); Absolute Neutrophil Count 4.3 X10^3/uL (2.0-7.7); Basophil# 0.05 X10^3/uL; Basophil% 0.9 % (0-1); Eosinophils% 1.7 % (0-5); Lymphocyte # 0.97 X10^3/ul (0.83-4.51); Lymphocyte % 16.6 % (19-41); Mean Corp Hgb Conc 32.4 g/dL (32-36); Mean Corpuscular Hgb 28.7 pg (27.0-32.0); Mean Corpuscular Volume 88.8 fL (80-94); Mean Platelet Vol. 9.8 fl (6.2-12.0); Monocyte# 0.36 X10^3/uL; Monocyte% 6.2 % (0-10); NRBC Flagged by Analyzer 0 % (0-5); Neutrophil # 4.33 X10^3/uL (2.7-7.7); Neutrophil % 74.1 % (47-70); Platelet Count 208 K/mm3 (150-450); Red Blood Count 3.83 M/mm3 (4.6-6.2); White Blood Count 5.8 K/mm3 (4.4-11.0)
[2024-02-25 08:23] LABS: Anion Gap 5 (5-15); BUN 21 mg/dL (7-18); BUN/Creat Ratio 23.2 RATIO (10-20); Calcium,Total 9.2 mg/dL (8.5-10.1); Chloride 114 mmol/L (98-107); Creatinine, Serum 0.91 mg/dL (0.70-1.30); EST Glomerular Filtration Rate 86 mL/min (>60); Est Glom Filt Rate - Afr Amer 104 mL/min (>60); Estimated Creatinine Clearance 83.52 ml/min; Glucose 95 mg/dL (74-106); Sodium Level 141 mmol/L (136-145)
[2024-02-25] MEDS: hydrALAZINE 20 MG/ML Vial 10 MG IV (09:05)
[2024-02-25] MEDS: Menthol/Lanolin/Calamine/Znox 113 GM Tube 1 APPLIC TOPICAL ×2 (09:09→22:11)
[2024-02-25] MEDS: Potassium Chloride Oral Tablet 20 MEQ PO (09:09)
[2024-02-25] MEDS: Carvedilol 12.5 MG Tablet PO ×2 (09:09→16:13)
[2024-02-25] MEDS: Lisinopril 20 MG Tablet PO (09:10)
[2024-02-25] MEDS: APIXABAN 5 MG TABLET PO ×2 (09:10→22:14)
[2024-02-25] MEDS: Gabapentin 600 MG Tablet PO ×2 (09:10→22:12)
[2024-02-25] MEDS: Nystatin Powder 15gm Bottle 1 APPLIC TOPICAL ×2 (09:10→22:12)
--- NOTE | 2024-02-25 10:09 | PCM.PN.HOSP ---
Subjective Subjective Could not get from his chair to his bed, continue with PT/OT. No issues overnight Objective Data Objective Data Vital Signs: Vital Signs Temp Pulse Resp BP Pulse Ox O2 Del Method 98.8 F 73 16 172/85 H 96 Room Air 02/25/24 08:58 02/25/24 09:05 02/25/24 08:58 02/25/24 09:05 02/25/24 08:58 02/25/24 09:26 Oxygen Delivery Method Room Air Weight: 244 lb 14.937 oz Body Mass Index (BMI) 36.1 Intake & Output: Intake and Output for Last 24 Hours 02/24/24 02/25/24 02/26/24 03:59 03:59 03:59 Intake Total 1120 / 1120 830 / 830 60 / 60 Output Total 900 / 900 1100 / 1100 500 / 500 Balance 220 / 220 -270 / -270 -440 / -440 Lab / Micro Data 02/25/24 07:12 02/25/24 07:12 Labs: Laboratory Results - last 24 hr 02/25/24 07:12: WBC 5.8, RBC 3.83 L, Hgb 11.0 L, Hct 34.0 L, MCV 88.8, MCH 28.7, MCHC 32.4, RDW Std Deviation 49.0 H, RDW Coeff of Donna 15.0 H, Plt Count 208, MPV 9.8, Immature Gran % (Auto) 0.500, Neut % (Auto) 74.1 H, Lymph % (Auto) 16.6 L, [place] % (Auto) 6.2, Eos % (Auto) 1.7, Baso % (Auto) 0.9, Absolute Neuts (auto) 4.3, Absolute Lymphs (auto) 0.97, Nucleated RBC % 0, Sodium 141, Potassium 4.0, Chloride 114 H, Carbon Dioxide 22.0, Anion Gap 5, BUN 21 H, Creatinine 0.91, Estim Creat Clear Calc 83.52, Est GFR (MDRD) Af Amer 104, Est GFR (MDRD) Non-Af 86, BUN/Creatinine Ratio 23.2 H, Glucose 95, Calcium 9.2 Micro: Microbiology 02/22/24 20:35 Blood Culture (Wb) - Anticubital Left Blood Culture - Preliminary No growth in 48 hours. 02/22/24 22:45 Mucosa - Nasopharyngeal Respiratory Panel (PCR) - Final Physical Exam Narrative General: Alert, Oriented x3, Cooperative, No apparent distress HEENT: Atraumatic, PERRLA, EOMI, Normocephalic Oral: Moist Mucosa Neck: Supple, No JVD Lungs: Diminished, Normal air movement, No rhonchi, No wheeze, No rales Cardiovascular: Regular rate, Regular Rhythm, Normal S1, Normal S2, No murmurs Abdomen: Soft, Non Tender, Non-Distended, No Hepato-splenomegaly Extremities: No edema, Capillary Refill Less than 3 Seconds Skin: No rashes, No breakdown Musculoskeletal: No Tenderness to Palpation of Joints or Extremities Neurological: No focal neurological deficits, chronic neurological changes from spinal stenosis and previous CVA Psych/Mental Status: Normal Affect, Appropriate Assessment & Plan Assessment/Plan (1) Adult failure to thrive: PLAN: Plan 1. Debility and weakness secondary to a Pseudomonas fluorescence UTI/history of spinal cord injury ? Urine culture with gram-negative irineo of 50-80,000 CFU ? He is allergic to Rocephin, Cipro, Bactrim, infectious disease was consulted on admission, transition to meropenem ? PT/OT, will likely need SNF placement given weakness 2. Paroxysmal A-fib/essential HTN/HLD/history of sick sinus syndrome status post pacemaker placement ? Continue with Eliquis ? Continue with his home blood pressure medications ? Continue with his home cholesterol medications ? Will monitor and make adjustments as necessary ? Echo on 02/14/2024 with an EF of 65% no evidence of diastolic dysfunction with mild aortic stenosis 3. History of CVA with chronic memory impairment/known anterior communicating artery aneurysm ? Appears to be at baseline ? Will continue to monitor 4. Anxiety/depression ? Stable ? Continue with his home medications 5. BPH with obstructive pathology ? Continue with Flomax ? Given his previous spinal cord injury he does do some self catheterization DVT: Eliquis Charges/Coding Visit Charges Inpatient E&M: 25691 Subs Hosp L2
[2024-02-25] MEDS: Acetaminophen 325 MG Tablet 650 MG PO (10:43)
--- NOTE | 2024-02-25 12:59 | CASEMGMT ---
Social Work- SW met with pt and pt , Nuzhat, to revise HCPOA. Pt named as primary agent. Pt sons Bulmaro and Joseph as alternate agents. SW copied document for chart and agents; original provided to pt. Pt shared ED experience with SW; reporting challenges with physician dimissing pt condition while highlighting an excellent experience with SW coiled tubing supervisor in assisting with providing support and education. Pt reports a very good experience on the floor as well. SW actively and empathetically listened. SW thanked pt for the feedback and encouraged use of the survey to highlight positives while acknowledging challenges. No other needs reported at this time. KEO He
--- NOTE | 2024-02-25 13:44 | CASEMGMT ---
Addendum entered by Saskia Bruce 02/25/24 15:14: Hospitalist having conversation with pt . They will discuss with family SNF level of rehab such as [facility] TCU and have a determination tomorrow if that is what they would like to proceed with. Addendum entered by Saskia Bruce 02/25/24 14:18: Updated Mary Kay at [facility] that pt will not be dc'd on IV atb. She is aware pt will not dc today. Green sheet on chart if pt should dc over the weekend. Original Note: Spoke with Dr. Stuart, no IV atb needed upon dc. Updated hospitalist.
--- NOTE | 2024-02-25 14:34 | PCM.PN.ID ---
Physical Exam Narrative Feeling better, but c/o ongoing low back pain. concerned about decreased UOP/retention. Const alert and no apparent distress General Appearance: cooperative Resp normal air movement and clear to auscultation bilaterally Cardio regular rate and regular rhythm GI soft to palpation, non-tender and non-distended Skin no rashes or lesions noted ID ID: Route of nutrition/ use of supplements: [] Nutritional Intake: [] IV Site: [] Mejía Catheter: [] Assessment & Plan Assessment/Plan (1) Urinary tract infection: PLAN: Ucx with 50-80k pseudomonas, recent ucx with same. Given boaz in ED. Procal 0.5. UA with 10-25 wbc. Will continue boaz for now for short course. Feeling better. Consider MRI of L spine and bladder scan for possible retention. Methenamine could be an option for UTI prophylaxis at discharge. Will follow, d/w Dr. Cavazos
--- NOTE | 2024-02-25 17:18 | CASEMGMT ---
Social Work- SW received notice from physician that based on therapy/function & conversation with the family, there is a need for SNF. Family interested in TCU. Referral completed. Pt accepted, but could not admit until Wednesday. Pt and updated; pt reports confusion on need for SNF, antibiotics, treatments plans. Pt shared that multiple dr have spoken to her and she feels there has been conflicting information, however, as SW guided pt through processing, it became clear that pt was actually just not following progression of treatment and was thinking concretely in terms of the original information that had been provided. Pt better understands very basic, simplistic explanations. SW remains available to follow. KEO He
[2024-02-25] MEDS: Tamsulosin HCl 0.4 MG Capsule PO (22:12)
[2024-02-25] MEDS: Citalopram 20 MG Tablet PO (22:12)
[2024-02-26] VITALS (7 sets, daily range): BP systolic 130–168; BP diastolic 58–77; PULSE 60–71; RESP 18; TEMP 36.5–36.8; O2SAT 94–97; BMI 36.1
[2024-02-26] MEDS: hydrALAZINE 20 MG/ML Vial 10 MG IV (03:16)
[2024-02-26] MEDS: Meropenem 500 MG in 0.9% Normal Saline (50mL MB+) 50 ML 100 MG IV ×3 (06:21→21:57)
[2024-02-26 06:53] LABS: Absolute Lymphocyte Count 1.05 X10^3/uL (0.83-4.51); Absolute Neutrophil Count 3.4 X10^3/uL (2.0-7.7); Basophil# 0.04 X10^3/uL; Basophil% 0.8 % (0-1); Eosinophil# 0.12 X10^3/uL; Eosinophils% 2.4 % (0-5); Hematocrit 33.6 % (40-54); Hemoglobin 10.7 g/dL (13.0-16.5); Lymphocyte # 1.05 X10^3/ul (0.83-4.51); Lymphocyte % 20.6 % (19-41); Mean Corp Hgb Conc 31.8 g/dL (32-36); Mean Corpuscular Hgb 28.2 pg (27.0-32.0); Mean Corpuscular Volume 88.7 fL (80-94); Monocyte# 0.44 X10^3/uL; Monocyte% 8.6 % (0-10); NRBC Flagged by Analyzer 0 % (0-5); Neutrophil # 3.43 X10^3/uL (2.7-7.7); Neutrophil % 67.2 % (47-70); Platelet Count 217 K/mm3 (150-450); RBC Distribution Width SD 48.3 fl (35.1-43.9); Red Blood Count 3.79 M/mm3 (4.6-6.2); White Blood Count 5.1 K/mm3 (4.4-11.0)
[2024-02-26 07:35] LABS: Anion Gap 4 (5-15); BUN 19 mg/dL (7-18); BUN/Creat Ratio 22.4 RATIO (10-20); Calcium,Total 8.7 mg/dL (8.5-10.1); Chloride 112 mmol/L (98-107); Creatinine, Serum 0.85 mg/dL (0.70-1.30); EST Glomerular Filtration Rate 93 mL/min (>60); Est Glom Filt Rate - Afr Amer 112 mL/min (>60); Estimated Creatinine Clearance 89.41 ml/min; Glucose 94 mg/dL (74-106); Potassium 3.8 mmol/L (3.5-5.1); Sodium Level 140 mmol/L (136-145)
[2024-02-26] MEDS: APIXABAN 5 MG TABLET PO ×2 (09:52→21:59)
[2024-02-26] MEDS: Gabapentin 600 MG Tablet PO ×2 (09:52→21:58)
[2024-02-26] MEDS: Carvedilol 12.5 MG Tablet PO ×2 (09:52→17:45)
[2024-02-26] MEDS: Menthol/Lanolin/Calamine/Znox 113 GM Tube 1 APPLIC TOPICAL ×2 (09:52→22:02)
[2024-02-26] MEDS: Lisinopril 20 MG Tablet PO (09:52)
[2024-02-26] MEDS: Potassium Chloride Oral Tablet 20 MEQ PO (09:52)
[2024-02-26] MEDS: Nystatin Powder 15gm Bottle 1 APPLIC TOPICAL ×2 (09:52→21:58)
--- NOTE | 2024-02-26 11:45 | PCM.PN.HOSP ---
Reason for Visit Reason for Visit: Diagnoses Urinary tract infection, site not specified (02/23/24) Adult failure to thrive (02/23/24) Subjective Subjective Saw patient at bedside this morning, 2 family friends present. Patient was sitting up comfortably in bed and in no acute distress. Patient has history of CVA with cognitive impairment and attempted to answer my questions appropriately but most answers were either incomplete or not appropriate. He denied any acute pain or discomfort. No other acute concerns today. Objective Data Objective Data Vital Signs: Vital Signs Temp Pulse Resp BP Pulse Ox O2 Del Method 97.7 F L 65 18 158/71 H 94 Room Air 02/26/24 08:15 02/26/24 08:15 02/26/24 08:15 02/26/24 08:15 02/26/24 08:15 02/26/24 08:22 Oxygen Delivery Method Room Air Weight: 111.1 kg Body Mass Index (BMI) 36.1 Intake & Output: Intake and Output for Last 24 Hours 02/24/24 02/25/24 02/26/24 23:59 23:59 23:59 Intake Total 830 / 830 630 / 630 60 / 60 Output Total 1100 / 1100 1500 / 1500 250 / 250 Balance -270 / -270 -870 / -870 -190 / -190 Lab / Micro Data 02/26/24 06:05 02/26/24 06:05 Labs: Laboratory Results - last 24 hr 02/26/24 06:05: WBC 5.1, RBC 3.79 L, Hgb 10.7 L, Hct 33.6 L, MCV 88.7, MCH 28.2, MCHC 31.8 L, RDW Std Deviation 48.3 H, RDW Coeff of Donna 15.0 H, Plt Count 217, MPV 10.0, Immature Gran % (Auto) 0.400, Neut % (Auto) 67.2, Lymph % (Auto) 20.6, Ransom % (Auto) 8.6, Eos % (Auto) 2.4, Baso % (Auto) 0.8, Absolute Neuts (auto) 3.4, Absolute Lymphs (auto) 1.05, Nucleated RBC % 0, Sodium 140, Potassium 3.8, Chloride 112 H, Carbon Dioxide 24.0, Anion Gap 4 L, BUN 19 H, Creatinine 0.85, Estim Creat Clear Calc 89.41, Est GFR (MDRD) Af Amer 112, Est GFR (MDRD) Non-Af 93, BUN/Creatinine Ratio 22.4 H, Glucose 94, Calcium 8.7 Micro: Microbiology 02/22/24 20:35 Blood Culture (Wb) - Anticubital Left Blood Culture - Preliminary No growth in 48 hours. 02/22/24 22:45 Mucosa - Nasopharyngeal Respiratory Panel (PCR) - Final Physical Exam Const alert and no apparent distress Constitutional Narrative: Elderly male, class II obesity, alert and oriented to person and place, sitting up comfortably in bed, attempting to answer questions appropriately but with inability to do so due to cognitive impairment, otherwise in no acute distress. General Appearance: cooperative and comfortable HEENT normocephalic, head/scalp atraumatic, hearing grossly normal bilaterally, nasal mucous membranes and turbinates normal and moist oral mucous membranes Eyes PERRL, EOMs intact bilaterally and conjunctivae normal Neck full ROM Chest inspection of chest normal Resp normal respiratory effort, normal air movement, no use of accessory muscles and clear to auscultation bilaterally Cardio regular rate, regular rhythm, no murmurs and peripheral pulses 2+ throughout GI normal to inspection, nondistended, normoactive bowel sounds, soft to palpation, non-tender and non-distended Back/Spine normal ROM Extremity normal to inspection, full ROM and no pedal edema Skin no rashes or lesions noted Neuro moves all extremities Psych mental status grossly normal Assessment & Plan Assessment/Plan (1) Urinary tract infection: (2) Weakness: PLAN: Plan Patient is a 78-year-old male who presented [facility] ED on 02/22/2024 with UTI and worsening weakness. 1. Debility and weakness secondary to a Pseudomonas fluorescence UTI, history of spinal cord injury ? PT/OT/case management following. Infectious disease following. Urine culture with Pseudomonas of 50-80,000 CFU. Patient is allergic to Rocephin, Cipro and Bactrim. Per ID treating with short course of IV meropenem while inpatient. Planning for TCU on discharge and bed will be available on 02/27. Will await final ID recs on 02/27 and plan for discharge after that. Continue home gabapentin. 2. Paroxysmal A-fib, hypertension, hyperlipidemia, history of sick sinus syndrome s/p pacemaker placement ? Stable. Continue home Eliquis, Coreg and lisinopril. 3. History of CVA with chronic memory impairment, known anterior communicating artery aneurysm ? At baseline. Monitor. 4. Anxiety/depression ? Stable. Continue home citalopram. 5. BPH with obstructive symptoms ? Continue home Flomax. Given previous spinal cord injury does do some self-catheterization at home. Is having frequent bladder scans done here with as needed straight cath as needed. 6. Class II obesity ? BMI 36 on admit. Complicates hospital course, care and prognosis. DVT prophylaxis: Not indicated, on Eliquis CODE STATUS: DNR CCA, DNI Expected disposition: TCU, 02/27 Total clinical time spent by myself addressing the patient's medical issues, reviewing all the data, and collaborating with patient's care team: 35 minutes. Charges/Coding Visit Charges Inpatient E&M: 39528 Subs Hosp L2
[2024-02-26] MEDS: Citalopram 20 MG Tablet PO (21:59)
[2024-02-26] MEDS: Tamsulosin HCl 0.4 MG Capsule PO (22:00)
[2024-02-27 02:17] VITALS: BP 159/73; PULSE 59; RESP 18; TEMP 37.2; O2SAT 94
[2024-02-27 06:00] VITALS: BMI 35.4
[2024-02-27] MEDS: Meropenem 500 MG in 0.9% Normal Saline (50mL MB+) 50 ML 100 MG IV ×3 (06:14→21:12)
[2024-02-27 08:35] VITALS: BP 160/80; PULSE 65; RESP 18; TEMP 36.6; O2SAT 93
[2024-02-27] MEDS: Carvedilol 12.5 MG Tablet PO ×2 (08:40→17:11)
[2024-02-27] MEDS: Potassium Chloride Oral Tablet 20 MEQ PO (08:40)
[2024-02-27 10:00] VITALS: PULSE 65; RESP 18; O2SAT 93
[2024-02-27] MEDS: Menthol/Lanolin/Calamine/Znox 113 GM Tube 1 APPLIC TOPICAL ×2 (10:46→21:12)
[2024-02-27] MEDS: Nystatin Powder 15gm Bottle 1 APPLIC TOPICAL ×2 (10:47→21:13)
[2024-02-27] MEDS: APIXABAN 5 MG TABLET PO ×2 (10:47→21:11)
[2024-02-27] MEDS: Lisinopril 20 MG Tablet PO (10:48)
[2024-02-27] MEDS: Gabapentin 600 MG Tablet PO ×2 (10:52→21:11)
--- NOTE | 2024-02-27 11:08 | PN.HOSP_ITS ---
Reason for Visit Reason for Visit: Diagnoses Urinary tract infection, site not specified (02/23/24) Weakness (02/23/24) Adult failure to thrive (02/23/24) Subjective Subjective Saw patient at bedside this morning, present. Patient was sitting up in bedside chair, in no acute distress. Appeared similar to yesterday. No new concerns today. Objective Data Objective Data Vital Signs: Vital Signs Temp Pulse Resp BP Pulse Ox O2 Del Method 98 F 65 18 160/80 H 93 Room Air 02/27/24 08:35 02/27/24 08:35 02/27/24 08:35 02/27/24 08:35 02/27/24 08:35 02/27/24 08:35 Oxygen Delivery Method Room Air Weight: 108.9 kg Body Mass Index (BMI) 35.4 Intake & Output: Intake and Output for Last 24 Hours 02/25/24 02/26/24 02/27/24 23:59 23:59 23:59 Intake Total 630 / 630 180 / 180 210 / 210 Output Total 1500 / 1500 1550 / 1550 200 / 200 Balance -870 / -870 -1370 / -1370 Lab / Micro Data 02/26/24 06:05 02/26/24 06:05 Micro: Microbiology 02/22/24 20:35 Blood Culture (Wb) - Anticubital Left Blood Culture - Preliminary No growth in 48 hours. 02/22/24 22:45 Mucosa - Nasopharyngeal Respiratory Panel (PCR) - Final Physical Exam Const alert and no apparent distress Constitutional Narrative: Elderly male, class II obesity, alert and oriented to person and place, sitting up comfortably in bed, attempting to answer questions appropriately but with inability to do so due to cognitive impairment, otherwise in no acute distress. Stable. General Appearance: cooperative and comfortable HEENT normocephalic, head/scalp atraumatic, hearing grossly normal bilaterally, nasal mucous membranes and turbinates normal and moist oral mucous membranes Eyes PERRL, EOMs intact bilaterally and conjunctivae normal Neck full ROM Chest inspection of chest normal Resp normal respiratory effort, normal air movement, no use of accessory muscles and clear to auscultation bilaterally Cardio regular rate, regular rhythm, no murmurs and peripheral pulses 2+ throughout GI normal to inspection, nondistended, normoactive bowel sounds, soft to palpation, non-tender and non-distended Back/Spine normal ROM Extremity normal to inspection, full ROM and no pedal edema Skin no rashes or lesions noted Neuro moves all extremities Psych mental status grossly normal Assessment & Plan Assessment/Plan (1) Urinary tract infection: (2) Weakness: PLAN: Plan Patient is a 78-year-old male who presented [facility] ED on 02/22/2024 with UTI and worsening weakness. 1. Debility and weakness secondary to a Pseudomonas fluorescence UTI, history of spinal cord injury ? PT/OT/case management following. Infectious disease following. Urine culture with Pseudomonas of 50-80,000 CFU. Patient is allergic to Rocephin, Cipro and Bactrim. Per ID treating with short course of IV meropenem while inpatient. Planning for TCU on discharge and bed will be available on 02/27. Will await final ID recs on 02/27 and plan for discharge after that. Continue home gabapentin. 2. Paroxysmal A-fib, hypertension, hyperlipidemia, history of sick sinus syndrome s/p pacemaker placement ? Stable. Continue home Eliquis, Coreg and lisinopril. 3. History of CVA with chronic memory impairment, known anterior communicating artery aneurysm ? At baseline. Monitor. 4. Anxiety/depression ? Stable. Continue home citalopram. 5. BPH with obstructive symptoms ? Continue home Flomax. Given previous spinal cord injury does do some self- catheterization at home. Is having frequent bladder scans done here with as needed straight cath as needed. 6. Class II obesity ? BMI 36 on admit. Complicates hospital course, care and prognosis. DVT prophylaxis: Not indicated, on Eliquis CODE STATUS: DNR CCA, DNI Expected disposition: TCU, 02/27 Total clinical time spent by myself addressing the patient's medical issues, reviewing all the data, and collaborating with patient's care team: 35 minutes. Charges/Coding Visit Charges Inpatient E&M: 57698 Subs Hosp L2
[2024-02-27 14:30] VITALS: BP 125/58; PULSE 61; RESP 18; TEMP 36.6; O2SAT 95
[2024-02-27 16:00] VITALS: PULSE 61; RESP 18; O2SAT 95
[2024-02-27 20:30] VITALS: BP 154/70; PULSE 70; RESP 18; TEMP 36.9; O2SAT 94
[2024-02-27] MEDS: Citalopram 20 MG Tablet PO (21:11)
[2024-02-27] MEDS: Tamsulosin HCl 0.4 MG Capsule PO (21:11)
[2024-02-28 02:30] VITALS: BP 153/72; PULSE 71; RESP 18; TEMP 36.3; O2SAT 93
[2024-02-28 05:43] VITALS: BMI 34.9
[2024-02-28] MEDS: Meropenem 500 MG in 0.9% Normal Saline (50mL MB+) 50 ML 100 MG IV (06:06)
[2024-02-28 08:17] VITALS: BP 155/72; PULSE 60; RESP 18; TEMP 36.6; O2SAT 97
[2024-02-28] MEDS: APIXABAN 5 MG TABLET PO (08:19)
[2024-02-28] MEDS: Potassium Chloride Oral Tablet 20 MEQ PO (08:19)
[2024-02-28] MEDS: Lisinopril 20 MG Tablet PO (08:19)
[2024-02-28] MEDS: Carvedilol 12.5 MG Tablet PO (08:19)
[2024-02-28] MEDS: 0.9% Saline Lock 10 ML Syringe IV (09:42)
[2024-02-28] MEDS: Menthol/Lanolin/Calamine/Znox 113 GM Tube 1 APPLIC TOPICAL (09:42)
[2024-02-28] MEDS: Nystatin Powder 15gm Bottle 1 APPLIC TOPICAL (09:43)
[2024-02-28] MEDS: Gabapentin 600 MG Tablet PO (09:46)
--- NOTE | 2024-02-28 10:26 | DS.PCM_ITS ---
Providers Date of Admission: 02/22/24 Date of Discharge: 02/28/24 Primary Care Physician: Dr. Tunde Beard DO Consultations 02/22/24 21:54 Consult: Infectious Disease Routine Consulting Provider: Tunde Stuart Reason for Consult: Recurrent reported intermittent fevers, UO EMERGENT Consult: No MD Notified: Yes Date Notified: 02/22/24 Time Notified: 20:21 Method of Notification: Text Reason For Visit: ADULT FTT, FUO REPORTED Diagnosis Discharge Diagnosis (1) Urinary tract infection: Status: Acute Code(s): N39.0 - Urinary tract infection, site not specified (2) Weakness: Status: Acute Code(s): R53.1 - Weakness Medications at Discharge Home Medications lisinopril 20 mg tablet 20 mg PO DAILY blood pressure 06/24/15 ascorbic acid (vitamin C) 500 mg tablet 1,000 mg PO LUNCH supplement 08/17/21 tamsulosin 0.4 mg capsule 0.4 mg PO QHS Urine retention 30 days #30 caps 09/03/21 citalopram 20 mg tablet 20 mg PO QHS depression 12/04/21 apixaban 5 mg tablet (Eliquis) 5 mg PO BID blood thinner #180 tabs 02/02/23 carvedilol 12.5 mg tablet 12.5 mg PO BID BP 02/12/24 cholecalciferol (vitamin D3) 25 mcg (1,000 unit) capsule 25 mcg PO DAILY 02/12/24 vitamin E 180 mg PO DAILY supplement 02/12/24 docusate sodium 283 mg/5 mL enema (Enemeez) 283 mg [place] BID constipation 02/13/24 potassium chloride 10 mEq tablet,extended release(part/cryst) 20 meq (2 x 10 mEq) PO DAILYCM #60 tabs 02/17/24 gabapentin 600 mg tablet 600 mg PO BID 02/21/24 methenamine hippurate 1 gram tablet 1 g PO BID 30 days #60 tabs 02/28/24 Hospital Course Operations None Procedures None Summary of Care Provided Minutes Spent on Discharge: 35 Hospital Course: Patient is a 78-year-old male who presented [facility] ED on 02/22/2024 with UTI and worsening weakness. Hospital course as noted below. Patient discharged to TCU in stable condition on 02/27. 1. Debility and weakness secondary to a Pseudomonas fluorescence UTI, history of spinal cord injury ? PT/OT/case management followed. Infectious disease followed. Urine culture with Pseudomonas of 50-80,000 CFU. Patient is allergic to Rocephin, Cipro and Bactrim. Per ID treated with short course of IV meropenem while inpatient and no need for further antibiotics on discharge. Started methenamine on discharge per ID recs. Continue home gabapentin. Discharged to TCU in stable condition on 02/27. 2. Paroxysmal A-fib, hypertension, hyperlipidemia, history of sick sinus syndrome s/p pacemaker placement ? Stable. Continue home Eliquis, Coreg and lisinopril. 3. History of CVA with chronic memory impairment, known anterior communicating artery aneurysm ? At baseline. Monitored. 4. Anxiety/depression ? Stable. Continue home citalopram. 5. BPH with obstructive symptoms ? Continue home Flomax. Given previous spinal cord injury does do some self- catheterization at home. Had frequent bladder scans done here with straight caths as needed. 6. Class II obesity ? BMI 36 on admit. Complicated hospital course, care and prognosis. Total clinical time spent by myself addressing the patient's medical issues, reviewing all the data, and collaborating with patient's care team: 35 minutes. Physical Exam Const alert and no apparent distress Constitutional Narrative: Elderly male, class II obesity, alert and oriented to person and place, sitting up comfortably in bed, attempting to answer questions appropriately but with inability to do so due to cognitive impairment, otherwise in no acute distress. Stable. General Appearance: cooperative and comfortable HEENT normocephalic, head/scalp atraumatic, hearing grossly normal bilaterally, nasal mucous membranes and turbinates normal and moist oral mucous membranes Eyes PERRL, EOMs intact bilaterally and conjunctivae normal Neck full ROM Chest inspection of chest normal Resp normal respiratory effort, normal air movement, no use of accessory muscles and clear to auscultation bilaterally Cardio regular rate, regular rhythm, no murmurs and peripheral pulses 2+ throughout GI normal to inspection, nondistended, normoactive bowel sounds, soft to palpation, non-tender and non-distended Back/Spine normal ROM Extremity normal to inspection, full ROM and no pedal edema Skin no rashes or lesions noted Neuro moves all extremities Psych mental status grossly normal Weight / BMI Weight Weight: 107.5 kg Body Mass Index (BMI) 34.9 ABG / Lab / Microbiology Data 02/26/24 06:05 02/26/24 06:05 Microbiology: Microbiology 02/22/24 20:35 Blood Culture (Wb) - Anticubital Left Blood Culture - Final No growth in 5 days. 02/22/24 22:45 Mucosa - Nasopharyngeal Respiratory Panel (PCR) - Final D/C Instructions DC O2, CPAP, BIPAP Needs Additional Home O2 Discharge instructions: No DC home with Oxygen: No Meaningful Use Info Meaningful Use Meaningful Use Diagnoses (Choose all that apply): None applicable Ischemic Stroke Statin Dosing Therapy Reference: STATIN DOSE THERAPY REFERENCE: * Patients > 75 years receive moderate or high dose statin therapy. * Patients 75 years or YOUNGER should receive HIGH intensity statin dose unless contraindicated. You will be required to document reason for non-treatment if statin daily dose does not meet guidelines. HIGH DOSE STATIN THERAPY DAILY Atorvastatin > than or = to 40 mg Rosuvastatin > than or = to 20 mg Amlodipine + Atorvastatin > than or = to 2.5/40 mg Ezetimibe + Simvastatin 10/80 mg Simvastatin 80mg Discharge Plan Admission Admit Date/Time: 02/23/24 15:59 Primary Reason for Your Visit: Worsening weakness Attending Provider: Rhett Palma Primary Care Provider: Tunde Beard Consulting Providers: Sindi Navarro; Tunde Stuart; Chris Cavazos Discharge Orders/Prescriptions Prescriptions: New methenamine hippurate 1 gram tablet 1 g PO BID 30 Days Qty: 60 0RF Continued citalopram 20 mg tablet 20 mg PO QHS lisinopril 20 MG tablet 20 mg PO DAILY Patient Comments: BLOOD PRESSURE ascorbic acid (vitamin C) 500 mg tablet 1,000 mg PO LUNCH tamsulosin 0.4 mg Capsule 0.4 mg PO QHS 30 Days Qty: 30 0RF carvedilol 12.5 mg Tablet 12.5 mg PO BID vitamin E [Vitamin E-400] 180 mg PO DAILY cholecalciferol (vitamin D3) 25 mcg (1,000 unit) capsule 25 mcg PO DAILY docusate sodium [Enemeez] 283 mg/5 mL enema 283 mg [place] BID potassium chloride 10 mEq Tablet,Er Particles/Crystals 20 meq PO DAILYCM Qty: 60 0RF gabapentin 600 mg tablet 600 mg PO BID Eliquis 5 mg tablet 5 mg PO BID Qty: 180 4RF Referrals / Follow Up: Tunde Beard DO [Primary Care Provider] - Disposition Disposition (needs filled in before D/C Order can be placed): [facility]f Facility Charges/Coding Visit Charges Inpatient E&M: 35436 Disch Hosp >30min
--- NOTE | 2024-02-28 10:26 | TREXTCAR_ITS ---
Diet Diet Order/Speech Therapy: 02/22/24 21:54 Diet: Cardiac - Heart Healthy Food consistency:: Regular Liquid Consistency:: Regular/Thin Routine Orders/Code Status Code Status: DNRCC-A (DO NOT INTUBATE) DC O2, CPAP, BIPAP needs Additional Home O2 Discharge instructions: No Wound(s) rt leg: Wound Type: Abrasion R buttock: Wound Type: Pressure Injury Therapies Weight Bearing: Full weight bearing Physical Therapy: Eval and Treat Occupational Therapy: Eval and Treat Problem/Diagnosis (1) Urinary tract infection: Status: Acute Code(s): N39.0 - Urinary tract infection, site not specified (2) Weakness: Status: Acute Code(s): R53.1 - Weakness Plan Patient is a 78-year-old male who presented [facility] ED on 02/22/2024 with UTI and worsening weakness. Hospital course as noted below. Patient discharged to TCU in stable condition on 02/27. 1. Debility and weakness secondary to a Pseudomonas fluorescence UTI, history of spinal cord injury ? PT/OT/case management followed. Infectious disease followed. Urine culture with Pseudomonas of 50-80,000 CFU. Patient is allergic to Rocephin, Cipro and Bactrim. Per ID treated with short course of IV meropenem while inpatient and no need for further antibiotics on discharge. Started methenamine on discharge per ID recs. Continue home gabapentin. Discharged to TCU in stable condition on 02/27. 2. Paroxysmal A-fib, hypertension, hyperlipidemia, history of sick sinus syndrome s/p pacemaker placement ? Stable. Continue home Eliquis, Coreg and lisinopril. 3. History of CVA with chronic memory impairment, known anterior communicating artery aneurysm ? At baseline. Monitored. 4. Anxiety/depression ? Stable. Continue home citalopram. 5. BPH with obstructive symptoms ? Continue home Flomax. Given previous spinal cord injury does do some self- catheterization at home. Had frequent bladder scans done here with straight caths as needed. 6. Class II obesity ? BMI 36 on admit. Complicated hospital course, care and prognosis. Total clinical time spent by myself addressing the patient's medical issues, reviewing all the data, and collaborating with patient's care team: 35 minutes. Allergies/Procedures Done in Hospital Allergies ceftriaxone Allergy (Verified 02/22/24 17:06) Rash ciprofloxacin (From Cipro) Allergy (Verified 02/22/24 17:06) Hives sulfamethoxazole (From Bactrim) Allergy (Verified 02/22/24 17:06) PT UNSURE OF REACTION trimethoprim (From Bactrim) Allergy (Verified 02/22/24 17:06) PT UNSURE OF REACTION Procedures: None Type of Care/Length of Stay Estimated LOS: Convalescent Care Less Than 30 days Type of Care Needed: Skilled Rehab Potential: Fair Prognosis: Fair Additional Orders/Day of Discharge H&P will serve as current which was dated: 02/22/24 Day of Discharge: 02/28/24 Dietary and Speech Recommendations Dietitian Recommendations/Changes: Continue Cardiac diet to manage medical conditions. Discharge Plan Admission Admit Date/Time: 02/23/24 15:59 Primary Reason for Your Visit: Worsening weakness Attending Provider: Rhett Palma Primary Care Provider: Tunde Beard Consulting Providers: Sindi Navarro; Tunde Stuart; Chris Cavazos Discharge Orders/Prescriptions Prescriptions: New methenamine hippurate 1 gram tablet 1 g PO BID 30 Days Qty: 60 0RF Continued citalopram 20 mg tablet 20 mg PO QHS lisinopril 20 MG tablet 20 mg PO DAILY Patient Comments: BLOOD PRESSURE ascorbic acid (vitamin C) 500 mg tablet 1,000 mg PO LUNCH tamsulosin 0.4 mg Capsule 0.4 mg PO QHS 30 Days Qty: 30 0RF carvedilol 12.5 mg Tablet 12.5 mg PO BID vitamin E [Vitamin E-400] 180 mg PO DAILY cholecalciferol (vitamin D3) 25 mcg (1,000 unit) capsule 25 mcg PO DAILY docusate sodium [Enemeez] 283 mg/5 mL enema 283 mg [place] BID potassium chloride 10 mEq Tablet,Er Particles/Crystals 20 meq PO DAILYCM Qty: 60 0RF gabapentin 600 mg tablet 600 mg PO BID Eliquis 5 mg tablet 5 mg PO BID Qty: 180 4RF Referrals / Follow Up: Tunde Beard DO [Primary Care Provider] - Disposition Disposition (needs filled in before D/C Order can be placed): [facility] Facility
--- NOTE | 2024-02-28 11:15 | PHA.DC.MR.R ---
Pharmacy [place] Med Reconciliation Pharmacy Service has performed discharge medication reconciliation for this patient. The patient's discharge medication list was reviewed for discrepancies and discrepancies were resolved. Medications at Discharge Home Medications lisinopril 20 mg tablet 20 mg PO DAILY blood pressure 06/24/15 ascorbic acid (vitamin C) 500 mg tablet 1,000 mg PO LUNCH supplement 08/17/21 tamsulosin 0.4 mg capsule 0.4 mg PO QHS Urine retention 30 days #30 caps 09/03/21 citalopram 20 mg tablet 20 mg PO QHS depression 12/04/21 apixaban 5 mg tablet (Eliquis) 5 mg PO BID blood thinner #180 tabs 02/02/23 carvedilol 12.5 mg tablet 12.5 mg PO BID BP 02/12/24 cholecalciferol (vitamin D3) 25 mcg (1,000 unit) capsule 25 mcg PO DAILY 02/12/24 vitamin E 180 mg PO DAILY supplement 02/12/24 docusate sodium 283 mg/5 mL enema (Enemeez) 283 mg [place] BID constipation 02/13/24 potassium chloride 10 mEq tablet,extended release(part/cryst) 20 meq (2 x 10 mEq) PO DAILYCM #60 tabs 02/17/24 gabapentin 600 mg tablet 600 mg PO BID 02/21/24 methenamine hippurate 1 gram tablet 1 g PO BID 30 days #60 tabs 02/28/24
--- NOTE | 2024-02-28 11:17 | CASEMGMT ---
Addendum entered by Narcisa Fernandez 02/28/24 12:25: Social Work- SW met with pt upon arrival; pt upset b/c pt sitting on bed healy with a urinal and reports that she was told pt cannot be straight cath at TCU. SW provided support via empathetic listening. SW reached out to TCU Admissions who verified that pt can be straight cath or have starr. notified. called son, Bulmaro, and put on speaker phone to speak with SW. SW provided education and offered support. Pt thanked BUZZ for assistance. Plan: TCU; skilled level of care KEO He Original Note: Social Work- Physician reports that pt is medically ready for discharge. Documentation faxed to TCU. Bedside nurse advised of pt discharge. SW called pt to advise of transition to TCU. PT and pt agreeable to discharge plans and state no other needs at this time. KEO He
--- NOTE | 2024-02-28 11:45 | WOUNDNOTE ---
wound photo: right buttock
[2024-02-28 14:27] VITALS: BP 151/71; PULSE 63; RESP 18; TEMP 36.6; O2SAT 93
[2024-02-28] MEDS: Acetaminophen 325 MG Tablet 650 MG PO (14:36)
--- NOTE | 2024-02-28 15:13 | NURSING ---
GAVE REPORT TO JEANETTE FLANNERY IN TCU
== END 2024-02-28 15:16 | disposition skilled nursing facility (03) | DRG 689 ==
LOC: ED 20:21 → MS3 21:40
PROVIDERS: Family Medicine; Admitting Provider Family Medicine; Emergency Provider Emergency Medicine; PCP Preventive Medicine Occupational Medicine; Visit Provider Hospitalist
DX: N39.0 Urinary tract infection, site not specified (principal); G82.50 Quadriplegia, unspecified; Z66 Do not resuscitate; R62.7 Adult failure to thrive; I71.40 Abdominal aortic aneurysm, without rupture, unspecified; I10 Essential (primary) hypertension; F32.A Depression, unspecified; Z68.36 Body mass index [BMI] 36.0-36.9, adult; I48.0 Paroxysmal atrial fibrillation; E78.5 Hyperlipidemia, unspecified; F41.9 Anxiety disorder, unspecified; N31.9 Neuromuscular dysfunction of bladder, unspecified; R53.81 Other malaise; Z79.01 Long term (current) use of anticoagulants; Z95.0 Presence of cardiac pacemaker; R53.1 Weakness; Z86.73 Personal history of transient ischemic attack (TIA), and cerebral infarction without residual deficits; B96.5 Pseudomonas (aeruginosa) (mallei) (pseudomallei) as the cause of diseases classified elsewhere; E66.812 Obesity, class 2; Z87.440 Personal history of urinary (tract) infections; N40.0 Benign prostatic hyperplasia without lower urinary tract symptoms
CPT/HCPCS: 36415; 71045; 80048; 80053; 81001; 83605; 83735; 84100; 84145; 85025; 85652; 86140; 87040; 87077; 87086; 87088; 87184; 87186; 87631; 87633; 94668; 96361; 96365; 97110; 97162; 97166; 97530; 97535; 99285; J2185; J7030; J7050; P9612; A4216

== ENCOUNTER 2024-02-28 15:27 | Inpatient (IN) | payer MEDICARE, OTHER, SELFPAY ==
[2024-02-28 15:37] VITALS: PULSE 66; RESP 16; O2SAT 96
[2024-02-28 15:48] VITALS: BMI 34.9
[2024-02-28 15:49] VITALS: BP 157/81; PULSE 61; RESP 14; TEMP 36.8; O2SAT 97
--- NOTE | 2024-02-28 18:49 | HP.PCM_ITS ---
HPI - General General Date of Admission: 02/28/24 Date of Service: 02/28/24 Chief Complaint: Here for rehabilitation. HPI Narrative DANNY AQUINO, is a 78 Male who presents with followin02/22/2024 [facility] ED complaint. UTI diagnosed in ED yesterday, admission recommended, patient declined. Fever, UTI, requires IV antibiotics, low back pain. WBC 7.7, Lactate 0.9, urine culture gram negative irineo, Meropenem given. 02/22/2024 Admit to [facility]. PT/OT for debility. Urine culture colonized, hold antibiotics. 02/23/2024 No acute events overnight. Urine culture 50,000 to 80,000 gram negative irineo. Treat UTI with Macrobid. PT/OT. 02/23/2024 Dr. Stuart recommended Meropenem IV for UTI. 02/24/2024 Feeling better, continue Meropenemi IV for UTI. 02/24/2024 Feeling little weak. PT/OT for debility. Self caths for BPH/neurogenic bladder/urinary retention. 02/25/2024 Could not get from bed to chair, PT/OT recommends SNF. 02/25/2024 Dr. Stuart Pseudomonas UTI, continue Meropenem. Consider MRI lumbar spine, bladderscan for urinary retention. Consider Methenamine as UTI prophylaxis option. 02/26/2024 Sitting up comfortably in bed. Meropenem IV for Pseudomonas UTI. Plan TCU 02/28/2024. 02/27/2024 Sitting in chair, No concerns. PT/OT for TCU. 02/28/2024 Admit to TCU with debility, here for rehabilitation, strengthening, prior to discharge home with . [facility] Medical History (Updated 02/28/24 @ 18:[address] 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 Depression Hypertension Atrial fibrillation Anterior communicating artery aneurysm Atrial fibrillation History of DVT (deep vein thrombosis) AAA (abdominal aortic aneurysm) without rupture Sick sinus syndrome Family history of hypertension History of spinal cord injury Paraplegia Premature ventricular contractions BPH (benign prostatic hypertrophy) Depression Cervical spinal stenosis Spinal cord injury Neurogenic bladder Degenerative joint disease (DJD) of lumbar spine Anemia Central cord syndrome Subluxation of C6-C7 cervical vertebrae 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.9) Home Medications ?Medication ?Instructions ?Recorded ?Last Taken ?Type lisinopril 20 mg tablet 20 mg PO DAILY blood pressure 06/24/15 02/28/24 08:20 History 20 mg ascorbic acid (vitamin C) 500 mg 1,000 mg PO LUNCH supplement 08/17/21 02/11/24 History tablet tamsulosin 0.4 mg capsule 0.4 mg PO QHS Urine retention 30 09/03/21 02/27/24 21:10 Rx days #30 caps 0.4 mg citalopram 20 mg tablet 20 mg PO QHS depression 12/04/21 02/27/24 21:10 History 20 mg apixaban 5 mg tablet (Eliquis) 5 mg PO BID blood thinner #180 tabs 02/02/23 02/28/24 08:20 Rx 5 mg carvedilol 12.5 mg tablet 12.5 mg PO BID BP 02/12/24 02/28/24 08:20 History 12.5 mg cholecalciferol (vitamin D3) 25 25 mcg PO DAILY supplement 02/12/24 Unknown History mcg (1,000 unit) capsule vitamin E 180 mg PO DAILY supplement 02/12/24 02/11/24 History docusate sodium 283 mg/5 mL enema 283 mg MD BID constipation 02/13/24 02/27/24 17:00 History (Enemeez) 283 mg potassium chloride 10 mEq 20 meq (2 x 10 mEq) PO DAILYCM 02/17/24 Unknown Rx tablet,extended release(part/cryst) hypokalemia #60 tabs gabapentin 600 mg tablet 600 mg PO BID nerve pain 02/21/24 02/28/24 09:45 History 600 mg methenamine hippurate 1 gram tablet 1 g PO BID urinary 30 days #60 tabs 02/28/24 Unknown Rx Allergy/AdvReac Type Severity Reaction Status Date / Time ceftriaxone Allergy Rash Verified 02/22/24 17:06 ciprofloxacin (From Cipro) Allergy Hives Verified 02/22/24 17:06 sulfamethoxazole (From Allergy PT UNSURE Verified 02/22/24 17:06 Bactrim) OF REACTION trimethoprim (From Bactrim) Allergy PT UNSURE Verified 02/22/24 17:06 OF REACTION Family History Mother Breast cancer Cancer Brain cancer Sister Diabetes Hypertension CHF (congestive heart failure) Kidney disease Sister CHF (congestive heart failure) Cardiac defibrillator in situ Other Family history of hypertension Surgical History History of neck surgery History of permanent cardiac pacemaker placement S/P cervical spinal fusion Social History household members: spouse Smoking Status: Never smoker alcohol intake: current alcohol intake frequency: holidays/special occasions only Alcohol type: wine substance use type: does not use caffeine: Yes Type: coffee Number of servings: 1 what type of physical activity do you participate in: other details: Health point frequency: 1-2 times per week duration: 45-60 minutes/day seatbelt use: always do you feel safe at home: Yes ROS Constitutional Constitutional: Reports weakness; Denies chills, fever(s) or weight gain ENT HEENT: Denies headache(s), nasal congestion or nasal discharge Cardiovascular Cardiovascular: Denies chest pain or palpitations Respiratory/Chest Respiratory/Chest: Denies cough, excessive phlegm production or shortness of breath with exertion Gastrointestinal Gastrointestinal: Denies abdominal pain, nausea or vomiting Genitourinary Genitourinary: Reports urinary hesitancy; Denies dysuria Musculoskeletal Musculoskeletal: Denies joint pain or joint swelling Integumentary Integumentary: Denies rash or wounds Neurologic Neurologic: Denies focal weakness, numbness or tingling Psychiatric Psychiatric: Denies anxiety, auditory hallucinations, depression, homicidal ideation or suicidal ideation Vital Signs Vital Signs Vital Signs: 02/28/24 15:37 02/28/24 15:49 Temperature 98.3 F Temperature Source Temporal Pulse Rate 66 61 Pulse Rhythm Regular Pulse Strength Normal (2+) Respiratory Rate 16 14 Respiratory Effort Normal Non-Labored Respiratory Depth Normal Respiratory Pattern Normal Blood Pressure 157/81 H Blood Pressure Mean 106 Blood Pressure Source Monitor Blood Pressure Position Semi-Fowlers Blood Pressure Location Right Arm Pulse Ox 96 97 Oxygen Delivery Method Room Air Room Air Weight Weight: 107.275 kg Body Mass Index (BMI) 34.9 Physical Exam Const alert General Appearance: cooperative HEENT normocephalic Eyes PERRL and EOMs intact bilaterally Neck supple, no JVD and no carotid bruits Resp normal respiratory effort, normal air movement and clear to auscultation bilaterally Cardio regular rate and regular rhythm GI normal to inspection, nondistended, normoactive bowel sounds, non-tender and non-distended Extremity normal capillary refill General Extremity: Negative for edema Skin no rashes or lesions noted General Skin Exam: no breakdown Neuro moves all extremities Speech: speech abnormal Details: Positive for other (Expressive aphasia.) Motor Exam: general weakness Psych affect normal Appearance: appropriate Assessment & Plan Assessment/Plan (1) Debility: (2) Pseudomonas urinary tract infection: (3) Urinary retention: (4) Benign prostate hyperplasia: (5) Neurogenic bladder: (6) Essential (primary) hypertension: (7) Depression: (8) Hypokalemia: (9) Neuropathic pain: (10) Atrial fibrillation: (11) Spinal cord injury: (12) 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 * Debility - PT/OT. * Pain - Tylenol 1000mg q6 prn pain (1-10). * Bowel - senna/colace 1 tablet bid, Magnesium citrate 300mL daily prn. * Adult immunization - Administer pneumonia vaccine, covid vaccine, flu vaccine as appropriate. * DVT prophylaxis - on Eliquis. * Atrial Fibrillation - Coreg 12.5mg bid, Eliquis 5mg bid. * Recurrent UTI - Vitamin C 1000mg lunch, Methenamine 1gm po bid. * Vitamin D deficiency - D3 25mcg daily. * Depression - Citalopram 20mg qhs, stable chronic jail use, GDR not recommended. * Neuropathic pain - Gabapentin 600mg bid. * Hypertension - Coreg 12.5mg bid, Lisinopril 20mg daily. * Skin irritation - Calmoseptine topical bid. * Tinea Corporis - Nystatin topical bid. * Hypokalemia - KCL 20meq daily. * BPH - Tamsulosin 0.4mg daily. * Urinary retention/neurogenic bladder - PrimoFit, bladderscan/straight cath as needed. * Vitamin E deficiency - Vitamin E 400IU daily.
[2024-02-28 21:37] VITALS: BP 144/69; PULSE 59
[2024-02-28] MEDS: Menthol/Lanolin/Calamine/Znox 113 GM Tube 1 APPLIC TOPICAL (21:38)
[2024-02-28] MEDS: 0.9% Saline Lock 10 ML Syringe IV (21:38)
[2024-02-28] MEDS: Nystatin Powder 15gm Bottle 1 APPLIC TOPICAL (21:40)
[2024-02-28] MEDS: Citalopram 20 MG Tablet PO (21:43)
[2024-02-28] MEDS: Carvedilol 12.5 MG Tablet PO (21:44)
[2024-02-28] MEDS: Tamsulosin HCl 0.4 MG Capsule PO (21:45)
[2024-02-28] MEDS: Methenamine Hippurate 1 GM Tablet PO (21:45)
[2024-02-28] MEDS: APIXABAN 5 MG TABLET PO (21:45)
[2024-02-28] MEDS: Gabapentin 600 MG Tablet PO (21:47)
[2024-02-28] MEDS: Senna/Docusate Sodium 1 Tablet PO (21:53)
[2024-02-29 06:01] LABS: Absolute Lymphocyte Count 0.98 X10^3/uL (0.83-4.51); Basophil# 0.03 X10^3/uL; Basophil% 0.5 % (0-1); Eosinophil# 0.15 X10^3/uL; Eosinophils% 2.6 % (0-5); Hemoglobin 11.1 g/dL (13.0-16.5); Lymphocyte # 0.98 X10^3/ul (0.83-4.51); Mean Corp Hgb Conc 31.7 g/dL (32-36); Mean Corpuscular Hgb 28.2 pg (27.0-32.0); Mean Corpuscular Volume 89.1 fL (80-94); Monocyte# 0.53 X10^3/uL; Monocyte% 9.2 % (0-10); NRBC Flagged by Analyzer 0 % (0-5); Neutrophil # 4.04 X10^3/uL (2.7-7.7); Neutrophil % 70.4 % (47-70); Platelet Count 212 K/mm3 (150-450); RBC Distribution Width CV 14.6 % (11.6-14.6); RBC Distribution Width SD 47.1 fl (35.1-43.9); Red Blood Count 3.93 M/mm3 (4.6-6.2); White Blood Count 5.8 K/mm3 (4.4-11.0)
[2024-02-29 06:26] LABS: Anion Gap 4 (5-15); BUN 20 mg/dL (7-18); BUN/Creat Ratio 24.4 RATIO (10-20); Chloride 111 mmol/L (98-107); Creatinine, Serum 0.82 mg/dL (0.70-1.30); EST Glomerular Filtration Rate 97 mL/min (>60); Est Glom Filt Rate - Afr Amer 117 mL/min (>60); Estimated Creatinine Clearance 91.05 ml/min; Glucose 90 mg/dL (74-106); Potassium 3.9 mmol/L (3.5-5.1); Sodium Level 140 mmol/L (136-145)
[2024-02-29] MEDS: Tuberculin,Purif.prot.deriv. 50 TU/ML Vial 0.1 ML ID (09:33)
[2024-02-29] MEDS: Acetaminophen 500 MG Tablet 1000 MG PO ×2 (10:11→18:33)
[2024-02-29] MEDS: Lisinopril 20 MG Tablet PO (10:14)
[2024-02-29] MEDS: APIXABAN 5 MG TABLET PO ×2 (10:14→22:11)
[2024-02-29] MEDS: Carvedilol 12.5 MG Tablet PO ×2 (10:14→22:11)
[2024-02-29] MEDS: Vitamin E 400 UNITS Capsule PO (10:14)
[2024-02-29] MEDS: Potassium Chloride Oral Tablet 20 MEQ PO (10:14)
[2024-02-29] MEDS: Methenamine Hippurate 1 GM Tablet PO ×2 (10:14→22:11)
[2024-02-29] MEDS: Senna/Docusate Sodium 1 Tablet PO ×2 (10:14→22:11)
[2024-02-29] MEDS: Gabapentin 600 MG Tablet PO ×2 (10:14→22:11)
[2024-02-29] MEDS: Cholecalciferol (VIT D3) 25 MCG TABLET (1,000 UNITS) PO (10:14)
[2024-02-29] MEDS: Nystatin Powder 15gm Bottle 1 APPLIC TOPICAL ×2 (10:18→22:14)
[2024-02-29] MEDS: Menthol/Lanolin/Calamine/Znox 113 GM Tube 1 APPLIC TOPICAL ×2 (10:18→22:14)
[2024-02-29 10:29] VITALS: BP 143/75; PULSE 62; O2SAT 94
[2024-02-29] MEDS: Ascorbic Acid 500 MG Tablet 1000 MG PO (11:24)
[2024-02-29] MEDS: 0.9% Saline Lock 10 ML Syringe IV (11:25)
--- NOTE | 2024-02-29 13:57 | WOUNDNOTE ---
wound photo: right buttock
[2024-02-29 14:11] VITALS: BMI 34.9
[2024-02-29 15:17] VITALS: RESP 16; TEMP 36.4
--- NOTE | 2024-02-29 15:26 | PCM.PN.DRR ---
Documented by User: Mayra Sagastume 02/29/24 15:52 TCU RX Drug Regimen Review Subjective/Objective Subjective/Objective Subjective: TCU Admission. 78 YOM presented to the ER with complaint. Hospitalized for Pseudomonas urinary tract infection, complicated by urinary retention, neurogenic bladder, bph. Admitted to TCU with debility for strengthening and rehabilitation. Objective: Allergies ceftriaxone Allergy (Verified 02/22/24 17:06) Rash ciprofloxacin (From Cipro) Allergy (Verified 02/22/24 17:06) Hives sulfamethoxazole (From Bactrim) Allergy (Verified 02/22/24 17:06) PT UNSURE OF REACTION trimethoprim (From Bactrim) Allergy (Verified 02/22/24 17:06) PT UNSURE OF REACTION Current Medications Generic Name Dose Route Start Last Admin Trade Name Freq PRN Reason Stop Dose Admin Acetaminophen 1,000 mg 02/28/24 19:06 02/29/24 10:11 Acetaminophen 500 Mg Tablet PO 1,000 mg Q6H PRN PRN Administration Pain Score 1-10 Apixaban 5 mg 02/28/24 22:00 02/29/24 10:14 Apixaban 5 Mg Tablet PO 5 mg BID ED Administration Ascorbic Acid 1,000 mg 02/29/24 12:00 02/29/24 11:24 Ascorbic Acid 500 Mg Tablet PO 1,000 mg LUNCH ED Administration Calamine/Phenol 1 applic 02/28/24 22:00 02/29/24 10:18 Menthol/Lanolin/Calamine/Znox 113 Gm Tube TOPICAL 1 applic BID [facility] Administration Protocol Carvedilol 12.5 mg 02/28/24 22:00 02/29/24 10:14 Carvedilol 12.5 Mg Tablet PO 12.5 mg BID ED Administration Protocol Cholecalciferol 25 mcg 02/29/24 10:00 02/29/24 10:14 Cholecalciferol (Vit D3) 25 Mcg Tablet (1,000 Units) PO 25 mcg DAILY [facility] Administration Citalopram Hydrobromide 20 mg 02/28/24 22:00 02/28/24 21:43 Citalopram 20 Mg Tablet PO 20 mg QHS ED Administration Docusate Sodium 283 mg 02/29/24 22:00 Docusate Sodium 283 Mg/5 Ml Enema RC BID [facility] Gabapentin 600 mg 02/28/24 22:00 02/29/24 10:14 Gabapentin 600 Mg Tablet PO 600 mg BID ED Administration Lisinopril 20 mg 02/29/24 10:00 02/29/24 10:14 Lisinopril 20 Mg Tablet PO 20 mg DAILY ED Administration Protocol Magnesium Citrate 300 ml 02/28/24 19:06 Magnesium Citrate 300 Ml PO DAILY PRN Constipation Methenamine Hippurate 1 gm 02/28/24 22:00 02/29/24 10:14 Methenamine Hippurate 1 Gm Tablet PO 1 gm BID ED Administration Nystatin 1 applic 02/28/24 22:00 02/29/24 10:18 Nystatin Powder 15gm Bottle TOPICAL 1 applic BID ED Administration Protocol Potassium Chloride 20 meq 02/29/24 08:00 02/29/24 10:14 Potassium Chloride Oral Tablet 20 Meq PO 20 meq DAILYCM ED Administration Senna/Docusate Sodium 1 tablet 02/28/24 22:00 02/29/24 10:14 Senna/Docusate Sodium 1 Tablet PO 1 tablet BID ED Administration Sodium Chloride 10 - 40 ml 02/28/24 15:50 02/29/24 11:25 0.9% Saline Lock 10 Ml Syringe IV 10 ml UD PRN Administration SALINE FLUSH Tamsulosin HCl 0.4 mg 02/28/24 22:00 02/28/24 21:45 Tamsulosin Hcl 0.4 Mg Capsule PO 0.4 mg QHS ED Administration Tuberculin PPD 0.1 ml 03/07/24 10:00 Tuberculin,Purif.Prot.Deriv. 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 (Acute) Debility (Acute) Vital Signs Temp Pulse Resp BP Pulse Ox O2 Del Method 97.6 F L 62 16 143/75 H 94 Room Air 02/29/24 15:17 02/29/24 10:29 02/29/24 15:17 02/29/24 10:29 02/29/24 10:29 02/29/24 10:29 Oxygen Delivery Method Room Air Weight: 107.501 kg Body Mass Index (BMI) 34.9 Sodium 140 mmol/L (136-145) 02/29/24 05:14 Potassium 3.9 mmol/L (3.5-5.1) 02/29/24 05:14 Chloride 111 mmol/L (98-107) H 02/29/24 05:14 Carbon Dioxide 26.0 mmol/L (21.0-32.0) 02/29/24 05:14 Anion Gap 4 (5-15) L 02/29/24 05:14 BUN 20 mg/dL (7-18) H 02/29/24 05:14 Creatinine 0.82 mg/dL (0.70-1.30) 02/29/24 05:14 Est GFR (MDRD) Af Amer 117 mL/min (>60) 02/29/24 05:14 Est GFR (MDRD) Non-Af 97 mL/min (>60) 02/29/24 05:14 BUN/Creatinine Ratio 24.4 RATIO (10-20) H 02/29/24 05:14 Glucose 90 mg/dL (74-106) 02/29/24 05:14 Assessment/Plan: 1. Pain: acetaminophen 1000mg PO Q6H PRN pain 1-10. Resident had 1 PRN dose for a pain score of 7 in the back. Please continue to monitor for increased pain and PRN usage. 2. Bowel: senna/docusate 1T PO BID, docusate enema 283mg RC BID, and magnesium citrate 300mL PO daily PRN constipation. No PRN doses have been given. Please continue to monitor for constipation and PRN usage. Last documented bowel movement was 02/27. 3. Atrial fibrillation/hypertension: carvedilol 12.5mg PO BID, lisinopril 20mg PO daily and apixaban 5mg PO BID. Please continue to monitor BP (last 143/75), HR (last 62), potassium (last 3.9mmol/L), renal function, cough, S/S of bleeding, hemoglobin (last 11.1g/dL), platelets (last 212,000). 4. Recurrent UTI: ascorbic acid 1000mg PO lunch and methenamine 1gm PO BID. Please continue to monitor for S/S of infection. 5. Hypokalemia: potassium chloride 20mEq PO daily. Please continue to monitor potassium. 6. BPH: tamsulosin 0.4mg PO daily. Please continue to monitor for S/S of BPH and BP. 7. Vitamin E and D deficiencies: cholecalciferol 25mcg PO daily and vitamin E 400units PO daily. Please consider ordering a vitamin D level as there is no level in the chart. Thanks. 8. Skin irritation/Tinea Corporis: Calmoseptine topical bid and Nystatin topical bid. Please continue to monitor. Assessment/Plan for indications treated with psychotropic medications: 1. Depression: citalopram 20mg PO QHS. Please see physician note regarding GDR. Please continue to monitor for S/S of suicidal ideation (black box warning), falls/fractures (BEERs), sodium (last 140mmol/L). 2. Neuropathic pain: gabapentin 600mg PO BID. GDR not indicated as this resident is using for pain. Please continue to monitor for increased pain, confusion, falls/fractures (BEERs) and renal function. Medical chart and medication regimen reviewed. The following medication irregularities or issues were identified: 1. Cholecalciferol 25mcg PO daily. Please consider ordering a vitamin D level as there is no level in the chart. Thanks. Date Date of Note: 02/29/24 Documented by User: Dr. Luis Carlos Gallardo MD 02/29/24 17:32 TCU RX Drug Regimen Review Provider Comments Provider responsibility Provider Comments to Recommendations by Pharmacy Agree
--- NOTE | 2024-02-29 15:48 | CASEMGMT ---
Social Work SW met with patient to complete initial assessment. Pt known to this worker from previous stay. Pt has expressive apashia. SW phoned to get updated information on assessment. SW educated to Medicare benefit and copay coverage. 's goal is to have pt return home with her assistance. stated they just bought a w/c van and a lift to transfer pt at home with new LOF. Both son's are involved with care. SW will continue to follow for DC planning. LIYAH RodriguezW
--- NOTE | 2024-02-29 16:25 | CHAPLAIN ---
Type of Pastoral Visit ___ Initial Visit ___ Follow-up Visit ___ On-call Visit ___ General Patient Visit ___ Spiritual Assessment ___ Family Conference ___ Bereavement ___ Rapid Response ___ Code Blue ___ Other (describe below) Pastoral Care Referral From ___ Patient ___ Family ___ Nurse ___ Physician ___ Printer'S Devil ___ Thermodynamics Teacher ___ Other (describe below) Sacrament/Intervention ___ Active listening ___ Anointing ___ Samaritan ___ Bereavement ___ Communion ___ Angie exploration ___ ___ Life review ___ Prayer ___ Reconciliation ___ Sacrament of Sick ___ Supportive presence ___ Wedding ___ Other (describe below) Pastoral Comments patient was in therapy at time of attempted visit; a second attempt was made and he was having patient care services
[2024-02-29 22:10] VITALS: BP 148/73; PULSE 61; RESP 16; O2SAT 93
[2024-02-29] MEDS: Citalopram 20 MG Tablet PO (22:11)
[2024-02-29] MEDS: Tamsulosin HCl 0.4 MG Capsule PO (22:11)
[2024-02-29 22:27] VITALS: O2SAT 93
--- NOTE | 2024-03-01 06:58 | NURSING ---
Upon changing patient this morning with a PRODUCT DEMONSTRATOR, this nurse observed buttocks to be bleeding and sheared. Aby and triad creams unable to stick d/t this. This nurse placed mepilex to buttocks/coccyx.
--- NOTE | 2024-03-01 07:21 | NS ---
MST score = 2
[2024-03-01 08:00] VITALS: BP 144/74; PULSE 65; RESP 18; TEMP 36.4; O2SAT 92
[2024-03-01] MEDS: Lisinopril 20 MG Tablet PO (08:39)
[2024-03-01] MEDS: Vitamin E 400 UNITS Capsule PO (08:39)
[2024-03-01] MEDS: Carvedilol 12.5 MG Tablet PO ×2 (08:39→21:52)
[2024-03-01] MEDS: Methenamine Hippurate 1 GM Tablet PO ×2 (08:39→21:52)
[2024-03-01] MEDS: Potassium Chloride Oral Tablet 20 MEQ PO (08:39)
[2024-03-01] MEDS: Cholecalciferol (VIT D3) 25 MCG TABLET (1,000 UNITS) PO (08:39)
[2024-03-01] MEDS: Senna/Docusate Sodium 1 Tablet PO ×2 (08:39→21:54)
[2024-03-01] MEDS: Gabapentin 600 MG Tablet PO ×2 (08:39→21:50)
[2024-03-01] MEDS: APIXABAN 5 MG TABLET PO ×2 (08:39→21:52)
[2024-03-01] MEDS: Nystatin Powder 15gm Bottle 1 APPLIC TOPICAL ×2 (08:40→21:53)
[2024-03-01] MEDS: Menthol/Lanolin/Calamine/Znox 113 GM Tube 1 APPLIC TOPICAL ×2 (08:40→21:50)
[2024-03-01] MEDS: 0.9% Saline Lock 10 ML Syringe IV (08:42)
[2024-03-01] MEDS: Acetaminophen 500 MG Tablet 1000 MG PO ×2 (08:44→18:37)
--- NOTE | 2024-03-01 10:15 | NURSING ---
New order received from Dr. Gallardo for Starr Cath. This nurse went and explain procedure to patient. Patient voiced understanding and agreed to procedure. Supplies gathered, patient positioned in bed, radha area cleaned, and sterile field prepped. 18 FR Starr cath inserted with clear yellow urine noted via sterile procedure. Tolerated well. Denies pain/discomfort. Before this nurse left patients room, noted almost 400cc of urine in starr bag. Patient stated would be in later today.
--- NOTE | 2024-03-01 12:17 | NURSING ---
Vasc Tech Note; Activity Asset: Lucía Pierre has been a resident in the past and continues to be in dependent in his choice of daily activities. Ignacio uses a white board and can read large print. He will watch or listen to tv and enjoys visits from his family and friends. When not having visitors or in therapy he prefers to rest. Staff will remind him of weekly activities and respect his right to say no.
[2024-03-01] MEDS: Ascorbic Acid 500 MG Tablet 1000 MG PO (12:18)
--- NOTE | 2024-03-01 15:32 | CHAPLAIN ---
Type of Pastoral Visit ___ Initial Visit _x__ Follow-up Visit ___ On-call Visit ___ General Patient Visit ___ Spiritual Assessment ___ Family Conference ___ Bereavement ___ Rapid Response ___ Code Blue ___ Other (describe below) Pastoral Care Referral From _x__ Patient _x__ Family ___ Nurse ___ Physician ___ Chemist Inorganic ___ Laborer Cutting Tool ___ Other (describe below) Sacrament/Intervention ___ Active listening ___ Anointing ___ Sikh ___ Bereavement ___ Communion ___ Angie exploration ___ ___ Life review _x__ Prayer ___ Reconciliation ___ Sacrament of Sick _x__ Supportive presence ___ Wedding ___ Other (describe below) Pastoral Comments patient had visitors so this was kept brief; pt indicates some improvement; pt welcomes a prayer for support and the interest in his progress
--- NOTE | 2024-03-01 18:34 | NURSING ---
upset that pt has not been put in bed today and has not had a BM. Noted that enema held lastnight but was given this AM w/out effect. 2199 enema given early tonight and pt sitting on BSC. pt noted to have some soft smearing in attends. pt has mepilex intact to coccyx. will get pt to the bed as soon as he is done using BSC. at side. call light in reach. pt verbally abusive to staff, yelling at DRAWING TENDER's to give him an enema. Pt confused and verbally attacks any staff member that walks in room.
[2024-03-01 21:50] VITALS: BP 144/66; PULSE 69; RESP 18
[2024-03-01] MEDS: Tamsulosin HCl 0.4 MG Capsule PO (21:52)
[2024-03-01] MEDS: Citalopram 20 MG Tablet PO (21:52)
[2024-03-02 00:59] LABS: Vitamin D,25 Hydroxy 53.5 ng/mL
[2024-03-02] MEDS: Acetaminophen 500 MG Tablet 1000 MG PO ×3 (08:21→22:53)
[2024-03-02] MEDS: Potassium Chloride Oral Tablet 20 MEQ PO (08:22)
[2024-03-02] MEDS: APIXABAN 5 MG TABLET PO ×2 (08:23→22:50)
[2024-03-02] MEDS: Gabapentin 600 MG Tablet PO ×2 (08:23→22:56)
[2024-03-02] MEDS: Carvedilol 12.5 MG Tablet PO ×2 (08:23→22:49)
[2024-03-02] MEDS: Methenamine Hippurate 1 GM Tablet PO ×2 (08:23→22:51)
[2024-03-02] MEDS: Senna/Docusate Sodium 1 Tablet PO ×2 (08:23→22:52)
[2024-03-02] MEDS: Cholecalciferol (VIT D3) 25 MCG TABLET (1,000 UNITS) PO (08:24)
[2024-03-02] MEDS: Lisinopril 20 MG Tablet PO (08:24)
[2024-03-02] MEDS: Vitamin E 400 UNITS Capsule PO (08:24)
[2024-03-02] MEDS: Nystatin Powder 15gm Bottle 1 APPLIC TOPICAL ×2 (10:02→22:51)
[2024-03-02] MEDS: Ascorbic Acid 500 MG Tablet 1000 MG PO (13:51)
[2024-03-02 14:41] VITALS: BP 111/66; PULSE 67; RESP 18; TEMP 36.2; O2SAT 95
--- NOTE | 2024-03-02 14:52 | CHAPLAIN ---
Type of Pastoral Visit ___ Initial Visit _x__ Follow-up Visit ___ On-call Visit ___ General Patient Visit ___ Spiritual Assessment ___ Family Conference ___ Bereavement ___ Rapid Response ___ Code Blue ___ Other (describe below) Pastoral Care Referral From _x__ Patient _x__ Family ___ Nurse ___ Physician ___ Quality Control Engineering Technician ___ Drywall Contractor ___ Other (describe below) Sacrament/Intervention _x__ Active listening ___ Anointing ___ Buddhist ___ Bereavement ___ Communion _x__ Angie exploration ___ ___ Life review _x__ Prayer ___ Reconciliation ___ Sacrament of Sick _x_ Supportive presence ___ Wedding ___ Other (describe below) Pastoral Comments the patient and are in the room by themselves today; both are welcoming and talkative; pt spouse attempts to make some illustrations of belief from the Chaz community and others; pt is active in speaking but it requires some effort in listening as his speech is difficult to understand; references are made to the grandchildren, the anglican, and to his personal angie; 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
[2024-03-02] MEDS: 0.9% Saline Lock 10 ML Syringe IV ×2 (16:37→22:43)
[2024-03-02 22:41] VITALS: BP 148/74; PULSE 63
[2024-03-02] MEDS: Citalopram 20 MG Tablet PO (22:49)
[2024-03-02] MEDS: Tamsulosin HCl 0.4 MG Capsule PO (22:51)
--- NOTE | 2024-03-03 02:26 | NURSING ---
Assisted SEMICONDUCTOR WAFER INSPECTOR w/ incontinence care. Buttocks and radha area gently washed w/ soap and water, rinsed, and pat dry. Triad cream and a new sacral mepliex applied to sheared areas to b/l buttocks d/t soiling from stool. Triad cream also applied to sheared areas to lower buttocks and posterior thighs just below buttocks. Light dusting of Nystatin powder applied to groin. Noted some skin to groin is peeling. Fine rash noted to b/l sides of groin. Small area to anterior scrotom w/ white/yellow tissue. Affected area to the scrotom started to bleed when gently cleaned. Triad cream applied. Small area to left lower back w/ hives. Denies any itch. Brief loosely fastened on the left side. Turned onto rt side. Will continue to monitor.
[2024-03-03] MEDS: Acetaminophen 500 MG Tablet 1000 MG PO ×3 (05:32→21:10)
[2024-03-03] MEDS: Carvedilol 12.5 MG Tablet PO ×2 (09:07→21:08)
[2024-03-03] MEDS: Vitamin E 400 UNITS Capsule PO (09:07)
[2024-03-03] MEDS: Gabapentin 600 MG Tablet PO ×2 (09:07→21:14)
[2024-03-03] MEDS: Potassium Chloride Oral Tablet 20 MEQ PO (09:07)
[2024-03-03] MEDS: Cholecalciferol (VIT D3) 25 MCG TABLET (1,000 UNITS) PO (09:07)
[2024-03-03] MEDS: Lisinopril 20 MG Tablet PO (09:07)
[2024-03-03] MEDS: APIXABAN 5 MG TABLET PO (09:07)
[2024-03-03] MEDS: Methenamine Hippurate 1 GM Tablet PO ×2 (09:07→21:09)
[2024-03-03] MEDS: Senna/Docusate Sodium 1 Tablet PO ×2 (09:07→21:10)
[2024-03-03] MEDS: Nystatin Powder 15gm Bottle 1 APPLIC TOPICAL ×2 (09:08→21:09)
[2024-03-03 11:37] VITALS: BP 125/75; PULSE 69; RESP 18; TEMP 36.7; O2SAT 97
[2024-03-03] MEDS: Ascorbic Acid 500 MG Tablet 1000 MG PO (12:58)
--- NOTE | 2024-03-03 14:31 | CASEMGMT ---
SW completed a BIMS- 14/15 and PHQ 2-2/2 for MDS assessment. Yoly Raymond MATERIAL ENGINEER CORRIE
[2024-03-03 21:01] VITALS: BP 160/74; PULSE 64
[2024-03-03] MEDS: 0.9% Saline Lock 10 ML Syringe IV (21:04)
[2024-03-03] MEDS: Citalopram 20 MG Tablet PO (21:08)
[2024-03-03] MEDS: Tamsulosin HCl 0.4 MG Capsule PO (21:09)
[2024-03-03 21:29] LABS: Squamous Epithelial Cells - UA 0 SEEN /hpf (0-5)
[2024-03-03 21:31] LABS: Color, Urine Yellow (Yellow); Glucose, Dipstick Normal (Normal); Ketone-Dipstick 5 mg/dl (Negative); Leukocyte Esterase-Dipstick 500 /ul (Negative); Nitrite-Dipstick Positive (Negative); Occult Blood-Urine 250 /ul (Negative); Protein-Dipstick 30 mg/dl (Negative); Specific Gravity, Urine 1.015 (1.002-1.030); Urine Bilirubin Dipstick Negative (Negative); Urine Clarity Cloudy (Clear); Urine Urobilinogen Normal (Normal); Urine pH 6.5 (5.0 - 8.0)
[2024-03-03 21:45] LABS: Bacteria 2+ /hpf (None Seen); Mucous, Urine 1+ /hpf (<or=2+); Red Blood Cells-Urine 5-10 SEEN /hpf (0-5); White Blood Cells 50-100 SEEN /hpf (0-5); White Cell Cast 0-5 SEEN /lpf (None Seen)
--- NOTE | 2024-03-04 00:14 | NURSING ---
Addendum entered by Tunde Daley 03/04/24 00:19: Start ATB and give first now. Original Note: UA results received, Dr. Gallardo updated via phone call, new order for Nitrofurantoin 100mg BID x7 days. order verified by read back and acknowledged.
[2024-03-04] MEDS: Nitrofurantoin Macrocrystals 100 MG Capsule PO (00:30)
--- NOTE | 2024-03-04 00:32 | NURSING ---
Patient updated on new order for macrobid 100mg BID x7 days, first dose given now.
[2024-03-04] MEDS: Acetaminophen 500 MG Tablet 1000 MG PO ×3 (05:10→22:52)
[2024-03-04] MEDS: Potassium Chloride Oral Tablet 20 MEQ PO (08:58)
[2024-03-04] MEDS: Carvedilol 12.5 MG Tablet PO ×2 (08:58→22:53)
[2024-03-04] MEDS: Methenamine Hippurate 1 GM Tablet PO ×2 (08:58→22:53)
[2024-03-04] MEDS: Gabapentin 600 MG Tablet PO ×2 (08:59→22:52)
[2024-03-04] MEDS: Vitamin E 400 UNITS Capsule PO (08:59)
[2024-03-04] MEDS: Menthol/Lanolin/Calamine/Znox 113 GM Tube 1 APPLIC TOPICAL (08:59)
[2024-03-04] MEDS: Senna/Docusate Sodium 1 Tablet PO ×2 (08:59→22:53)
[2024-03-04] MEDS: Nystatin Powder 15gm Bottle 1 APPLIC TOPICAL ×2 (08:59→22:54)
[2024-03-04] MEDS: Lisinopril 20 MG Tablet PO (09:00)
[2024-03-04] MEDS: Cholecalciferol (VIT D3) 25 MCG TABLET (1,000 UNITS) PO (09:00)
[2024-03-04 09:29] VITALS: BP 143/78; PULSE 64; RESP 18; TEMP 36.5; O2SAT 98
[2024-03-04] MEDS: Ascorbic Acid 500 MG Tablet 1000 MG PO (11:10)
[2024-03-04] MEDS: Tamsulosin HCl 0.4 MG Capsule PO (22:53)
[2024-03-04] MEDS: Citalopram 20 MG Tablet PO (22:54)
[2024-03-04 23:01] VITALS: BP 166/85; PULSE 64
[2024-03-05] MEDS: Acetaminophen 500 MG Tablet 1000 MG PO ×3 (06:35→21:54)
[2024-03-05] MEDS: Senna/Docusate Sodium 1 Tablet PO ×2 (09:34→21:54)
[2024-03-05] MEDS: Methenamine Hippurate 1 GM Tablet PO ×2 (09:34→21:56)
[2024-03-05] MEDS: Gabapentin 600 MG Tablet PO ×2 (09:34→21:53)
[2024-03-05] MEDS: Potassium Chloride Oral Tablet 20 MEQ PO (09:34)
[2024-03-05] MEDS: Vitamin E 400 UNITS Capsule PO (09:34)
[2024-03-05] MEDS: Cholecalciferol (VIT D3) 25 MCG TABLET (1,000 UNITS) PO (09:34)
[2024-03-05] MEDS: Lisinopril 20 MG Tablet PO (09:34)
[2024-03-05] MEDS: Carvedilol 12.5 MG Tablet PO ×2 (09:34→21:55)
[2024-03-05] MEDS: Nystatin Powder 15gm Bottle 1 APPLIC TOPICAL ×2 (09:35→21:55)
[2024-03-05] MEDS: 0.9% Saline Lock 10 ML Syringe IV (09:35)
[2024-03-05] MEDS: Menthol/Lanolin/Calamine/Znox 113 GM Tube 1 APPLIC TOPICAL ×2 (09:35→21:55)
[2024-03-05 09:45] VITALS: BP 131/68; PULSE 66; RESP 18; TEMP 36.2; O2SAT 97
[2024-03-05] MEDS: Ascorbic Acid 500 MG Tablet 1000 MG PO (12:01)
--- NOTE | 2024-03-05 16:07 | NURSING ---
Addendum entered by Nuzhat Bush 03/05/24 16:17: also restart giana tomorrow Original Note: dr whaley notified of urine culture and UA results, new order to consult Dr Stuart tomorrow. pt allergic to both antibiotics that cover urinary orgainisms.
[2024-03-05 21:00] VITALS: PULSE 69; RESP 16; O2SAT 98
[2024-03-05 21:45] VITALS: BP 160/86; PULSE 68; RESP 16
[2024-03-05] MEDS: Citalopram 20 MG Tablet PO (21:55)
[2024-03-05] MEDS: Tamsulosin HCl 0.4 MG Capsule PO (21:56)
[2024-03-06] MEDS: Acetaminophen 500 MG Tablet 1000 MG PO ×3 (05:35→22:29)
[2024-03-06] MEDS: 0.9% Saline Lock 10 ML Syringe IV ×2 (05:35→22:24)
--- NOTE | 2024-03-06 08:25 | NURSING ---
Stumper Feller Note; MDS for 03/06/2024 Complete
--- NOTE | 2024-03-06 08:56 | NURSING ---
Offered covid vaccine, VIS provided. Resident refuses at this time. Said he will talk with his . Ask him to let nursing know if he decides he would like to receive.
[2024-03-06] MEDS: Potassium Chloride Oral Tablet 20 MEQ PO (10:16)
[2024-03-06] MEDS: Cholecalciferol (VIT D3) 25 MCG TABLET (1,000 UNITS) PO (10:16)
[2024-03-06] MEDS: Carvedilol 12.5 MG Tablet PO ×2 (10:17→22:27)
[2024-03-06] MEDS: APIXABAN 5 MG TABLET PO ×2 (10:17→22:27)
[2024-03-06] MEDS: Senna/Docusate Sodium 1 Tablet PO ×2 (10:17→22:28)
[2024-03-06] MEDS: Vitamin E 400 UNITS Capsule PO (10:17)
[2024-03-06] MEDS: Lisinopril 20 MG Tablet PO (10:17)
[2024-03-06] MEDS: Methenamine Hippurate 1 GM Tablet PO ×2 (10:17→22:28)
[2024-03-06 10:24] VITALS: BP 177/85; PULSE 69
[2024-03-06] MEDS: Gabapentin 600 MG Tablet PO ×2 (11:32→22:31)
[2024-03-06] MEDS: Ascorbic Acid 500 MG Tablet 1000 MG PO (11:32)
[2024-03-06] MEDS: Menthol/Lanolin/Calamine/Znox 113 GM Tube 1 APPLIC TOPICAL ×2 (11:34→22:26)
[2024-03-06] MEDS: Nystatin Powder 15gm Bottle 1 APPLIC TOPICAL ×2 (11:35→22:29)
[2024-03-06 13:28] VITALS: BP 156/75; PULSE 61; RESP 16; TEMP 36.7; O2SAT 95
--- NOTE | 2024-03-06 13:31 | PCM.PN.ID ---
Physical Exam Narrative Remains off abx, still weak. No abd pain, no fever. Catheter in place. Const alert and no apparent distress Resp normal air movement and clear to auscultation bilaterally Cardio regular rate and regular rhythm GI soft to palpation, non-tender and non-distended Extremity General Extremity: edema ID ID: Route of nutrition/ use of supplements: [] Nutritional Intake: [] IV Site: [] Mejía Catheter: [] Assessment & Plan Assessment/Plan (1) Recurrent urinary tract infection: PLAN: Started on methenamine for intermediate suppression. Repeat ucx now with PsA. UA with increased wbc. Feeling about the same for past few days. No fever, no abd pain, catheter in place. For now, would cont to monitor off of abx, but if condition worsens, would start abx. Spoke with micro lab to release cefepime and zosyn susceptibilities. Will follow
[2024-03-06 22:23] VITALS: BP 164/80; PULSE 69
[2024-03-06] MEDS: Citalopram 20 MG Tablet PO (22:26)
[2024-03-06] MEDS: Tamsulosin HCl 0.4 MG Capsule PO (22:27)
[2024-03-07] MEDS: Acetaminophen 500 MG Tablet 1000 MG PO ×3 (06:11→23:21)
[2024-03-07 07:44] LABS: Absolute Lymphocyte Count 0.97 X10^3/uL (0.83-4.51); Basophil# 0.04 X10^3/uL; Basophil% 0.7 % (0-1); Eosinophil# 0.15 X10^3/uL; Eosinophils% 2.6 % (0-5); Hematocrit 33.3 % (40-54); Hemoglobin 10.8 g/dL (13.0-16.5); Lymphocyte # 0.97 X10^3/ul (0.83-4.51); Lymphocyte % 16.9 % (19-41); Mean Corp Hgb Conc 32.4 g/dL (32-36); Mean Corpuscular Hgb 28.8 pg (27.0-32.0); Mean Corpuscular Volume 88.8 fL (80-94); Mean Platelet Vol. 10.5 fl (6.2-12.0); Monocyte# 0.57 X10^3/uL; Monocyte% 9.9 % (0-10); NRBC Flagged by Analyzer 0 % (0-5); Neutrophil # 3.98 X10^3/uL (2.7-7.7); Neutrophil % 69.4 % (47-70); Platelet Count 200 K/mm3 (150-450); RBC Distribution Width CV 14.3 % (11.6-14.6); RBC Distribution Width SD 46.1 fl (35.1-43.9); Red Blood Count 3.75 M/mm3 (4.6-6.2); White Blood Count 5.7 K/mm3 (4.4-11.0)
[2024-03-07 08:11] LABS: Anion Gap 5 (5-15); BUN 19 mg/dL (7-18); BUN/Creat Ratio 21.4 RATIO (10-20); Calcium,Total 8.8 mg/dL (8.5-10.1); Chloride 109 mmol/L (98-107); Creatinine, Serum 0.89 mg/dL (0.70-1.30); EST Glomerular Filtration Rate 88 mL/min (>60); Est Glom Filt Rate - Afr Amer 107 mL/min (>60); Estimated Creatinine Clearance 83.98 ml/min; Glucose 91 mg/dL (74-106); Potassium 3.8 mmol/L (3.5-5.1); Sodium Level 139 mmol/L (136-145)
[2024-03-07] MEDS: Potassium Chloride Oral Tablet 20 MEQ PO (09:13)
[2024-03-07] MEDS: APIXABAN 5 MG TABLET PO ×2 (09:14→23:18)
[2024-03-07] MEDS: Senna/Docusate Sodium 1 Tablet PO ×2 (09:14→23:21)
[2024-03-07] MEDS: Methenamine Hippurate 1 GM Tablet PO ×2 (09:14→23:22)
[2024-03-07] MEDS: Carvedilol 12.5 MG Tablet PO ×2 (09:14→23:22)
[2024-03-07] MEDS: Cholecalciferol (VIT D3) 25 MCG TABLET (1,000 UNITS) PO (09:14)
[2024-03-07] MEDS: Menthol/Lanolin/Calamine/Znox 113 GM Tube 1 APPLIC TOPICAL ×2 (09:14→23:22)
[2024-03-07] MEDS: Tuberculin,Purif.prot.deriv. 50 TU/ML Vial 0.1 ML ID (09:14)
[2024-03-07] MEDS: Lisinopril 20 MG Tablet PO (09:14)
[2024-03-07] MEDS: Gabapentin 600 MG Tablet PO ×2 (09:14→23:18)
[2024-03-07] MEDS: Nystatin Powder 15gm Bottle 1 APPLIC TOPICAL ×2 (09:14→23:23)
[2024-03-07] MEDS: Vitamin E 400 UNITS Capsule PO (09:14)
[2024-03-07 10:52] VITALS: BP 128/65; PULSE 73; RESP 16; TEMP 36.6; O2SAT 98
[2024-03-07] MEDS: Ascorbic Acid 500 MG Tablet 1000 MG PO (11:02)
--- NOTE | 2024-03-07 12:52 | NURSING ---
This nurse entered pt. room this AM to give pt. his meds and check his vitals. When this nurse asked pt. to lift his arm so this nurse could place blood pressure cuff around arm, pt. looked at this nurse and did not lift his arm. When this nurse asked pt. to please lift his arm again, pt. continued to just stare at nurse and not lift arm. This afternoon, this nurse helped composite assembler's get pt. into sera-lift. During this time pt told staff to lift up his feet. This nurse reminded pt. he completes range of motion exercise along with other lower extremities exercises with therapy independently. After nurse informed pt. of this pt. preceded to shout I can't lift my legs. This nurse finished care with composite assembler's and exited pt. room.
--- NOTE | 2024-03-07 13:10 | NURSING ---
This nurse entered pt. room this AM to give pt. his meds and check his vitals. When this nurse asked pt. to lift his arm so this nurse could place blood pressure cuff around arm, pt. looked at this nurse and did not lift his arm. When this nurse asked pt. to please lift his arm again, pt. continued to just stare at nurse and not lift arm. This afternoon, this nurse helped professor of spanish's get pt. into sera-lift. During this time pt told staff to lift up his feet. This nurse reminded pt. he completes range of motion exercise along with other lower extremities exercises with therapy. After nurse informed pt. of this pt. preceded to shout I can't lift my legs. This nurse finished care with professor of spanish's and exited pt. room.
--- NOTE | 2024-03-07 14:07 | MDS.RN ---
Information for the MDS was obtained from review of the clinical record, interview of resident, staff, and direct observation of resident?s care.
[2024-03-07] MEDS: Tamsulosin HCl 0.4 MG Capsule PO (23:22)
[2024-03-07] MEDS: Citalopram 20 MG Tablet PO (23:22)
[2024-03-07 23:30] VITALS: PULSE 68; RESP 16
[2024-03-07 23:33] VITALS: BP 162/73; PULSE 64
[2024-03-08] MEDS: Acetaminophen 500 MG Tablet 1000 MG PO ×3 (06:49→20:16)
[2024-03-08 08:45] VITALS: BP 146/67; PULSE 62; RESP 18; TEMP 36.8; O2SAT 94
[2024-03-08] MEDS: Lisinopril 20 MG Tablet PO (08:51)
[2024-03-08] MEDS: APIXABAN 5 MG TABLET PO ×2 (08:51→20:16)
[2024-03-08] MEDS: Senna/Docusate Sodium 1 Tablet PO ×2 (08:51→20:16)
[2024-03-08] MEDS: Vitamin E 400 UNITS Capsule PO (08:51)
[2024-03-08] MEDS: Potassium Chloride Oral Tablet 20 MEQ PO (08:51)
[2024-03-08] MEDS: Cholecalciferol (VIT D3) 25 MCG TABLET (1,000 UNITS) PO (08:51)
[2024-03-08] MEDS: Nystatin Powder 15gm Bottle 1 APPLIC TOPICAL ×2 (08:52→20:17)
[2024-03-08] MEDS: Menthol/Lanolin/Calamine/Znox 113 GM Tube 1 APPLIC TOPICAL ×2 (08:52→20:16)
[2024-03-08] MEDS: Carvedilol 12.5 MG Tablet PO ×2 (08:52→20:16)
[2024-03-08] MEDS: Methenamine Hippurate 1 GM Tablet PO ×2 (08:52→20:16)
[2024-03-08] MEDS: Gabapentin 600 MG Tablet PO ×2 (08:55→20:16)
[2024-03-08] MEDS: Ascorbic Acid 500 MG Tablet 1000 MG PO (11:40)
[2024-03-08 16:00] VITALS: RESP 18; TEMP 37.1
[2024-03-08] MEDS: Citalopram 20 MG Tablet PO (20:16)
[2024-03-08] MEDS: Tamsulosin HCl 0.4 MG Capsule PO (20:16)
[2024-03-09] MEDS: Acetaminophen 500 MG Tablet 1000 MG PO ×2 (05:56→22:41)
[2024-03-09] MEDS: Potassium Chloride Oral Tablet 20 MEQ PO (09:23)
[2024-03-09] MEDS: APIXABAN 5 MG TABLET PO ×2 (09:24→22:41)
[2024-03-09] MEDS: Carvedilol 12.5 MG Tablet PO ×2 (09:24→22:42)
[2024-03-09] MEDS: Senna/Docusate Sodium 1 Tablet PO ×2 (09:25→22:41)
[2024-03-09] MEDS: Vitamin E 400 UNITS Capsule PO (09:25)
[2024-03-09] MEDS: Methenamine Hippurate 1 GM Tablet PO ×2 (09:25→22:41)
[2024-03-09] MEDS: Lisinopril 20 MG Tablet PO (09:25)
[2024-03-09] MEDS: Cholecalciferol (VIT D3) 25 MCG TABLET (1,000 UNITS) PO (09:26)
[2024-03-09] MEDS: Menthol/Lanolin/Calamine/Znox 113 GM Tube 1 APPLIC TOPICAL ×2 (09:26→22:39)
[2024-03-09] MEDS: Nystatin Powder 15gm Bottle 1 APPLIC TOPICAL ×2 (09:27→22:40)
[2024-03-09] MEDS: Gabapentin 600 MG Tablet PO ×2 (09:32→22:46)
[2024-03-09 10:00] VITALS: RESP 18
[2024-03-09] MEDS: Ascorbic Acid 500 MG Tablet 1000 MG PO (11:16)
--- NOTE | 2024-03-09 14:03 | WOUNDNOTE ---
Pt currently working with therapy. will try to reassess the buttocks in the am.
--- NOTE | 2024-03-09 20:00 | NURSING ---
This nurse assisted PIPER HELPER with SaraLift to [place] [facility]. Patient's bedside, prior to patient transfer patient's stated, Are you qualified to use the lift? I know how it is supposed to be used. Patient's assured that this nurse and PIPER HELPER are qualified and trained on SaraLift. Patient was lifted using x2 assist and SaraLift. Therapy has patient as a x2 SaraLift for all transfers. This nurse was operating SaraLift and PIPER HELPER was wiping patient. Patient was then moved over the bed and SaraLift wheels were locked for the remainder of hygiene. Patient stated, I'm going to sit, this nurse instructed patient not to sit yet because it wasn't safe with the SaraLift in the upright position. Patient then sat onto the bed while SaraLift was still in upright position despite multiple reminders not to sit until staff said it was okay. Patient's then attempted to assist patient around PIPER HELPER and nurse. This nurse instructed patient's to stay back during transfer for safety reasons. Patient's refused and continued to attempt to assist with patient transfer. Patient was attempting to undo attachment cords once the SaraLift was lowered by staff safely. Patient instructed to not touch the SaraLift equipment. Once patient was safely on the bed, this nurse and PIPER HELPER assisted patient to the lying position and HS hygiene provided.
[2024-03-09 22:30] VITALS: BP 174/78; PULSE 74; RESP 16
[2024-03-09] MEDS: Citalopram 20 MG Tablet PO (22:42)
[2024-03-09] MEDS: Tamsulosin HCl 0.4 MG Capsule PO (22:42)
[2024-03-10] MEDS: Acetaminophen 500 MG Tablet 1000 MG PO ×3 (05:05→21:36)
[2024-03-10] MEDS: Potassium Chloride Oral Tablet 20 MEQ PO (09:11)
[2024-03-10] MEDS: Lisinopril 20 MG Tablet PO (09:11)
[2024-03-10] MEDS: Carvedilol 12.5 MG Tablet PO ×2 (09:11→21:36)
[2024-03-10] MEDS: Cholecalciferol (VIT D3) 25 MCG TABLET (1,000 UNITS) PO (09:11)
[2024-03-10] MEDS: Gabapentin 600 MG Tablet PO ×2 (09:11→21:44)
[2024-03-10] MEDS: 0.9% Saline Lock 10 ML Syringe IV (09:11)
[2024-03-10] MEDS: APIXABAN 5 MG TABLET PO ×2 (09:11→21:36)
[2024-03-10] MEDS: Methenamine Hippurate 1 GM Tablet PO ×2 (09:11→21:36)
[2024-03-10] MEDS: Senna/Docusate Sodium 1 Tablet PO ×2 (09:11→21:36)
[2024-03-10] MEDS: Vitamin E 400 UNITS Capsule PO (09:11)
[2024-03-10] MEDS: Menthol/Lanolin/Calamine/Znox 113 GM Tube 1 APPLIC TOPICAL ×2 (09:12→21:34)
[2024-03-10] MEDS: Nystatin Powder 15gm Bottle 1 APPLIC TOPICAL ×2 (09:12→21:34)
[2024-03-10 09:45] VITALS: BP 126/64; PULSE 64; RESP 18; TEMP 36.4; O2SAT 96
[2024-03-10] MEDS: Ascorbic Acid 500 MG Tablet 1000 MG PO (11:38)
--- NOTE | 2024-03-10 12:40 | CASEMGMT ---
Plan of care meeting held with pt and pt's present. PT/OT/ST discussed pt progress with therapy. SW provided pt's with written communication on insurance process and copay coverage during stay. Pt plans to return home with his spouse at time of discharge. Pt will continue with plan of care at this time as pt is continuing to make progress with therapy. Pt has needed DME at home and feels she can provide for needs once pt returns home. SW to continue to follow for dc planning. KEO Rodriguez
--- NOTE | 2024-03-10 19:30 | NURSING ---
Patient requests enemeez while on BSC, FRAME AND SCRAP CRUSHER x2 in room assisting with toileting needs and sera lift transfer. Patient agitated toward staff AEB furrowed brow, loud voice, demanding sera lift be locked in place for patient to lean on while toileting, patient observed leaning forward on sera lift laying head on sera lift. Prefers to sit on toilet for extended periods of time while attempting to facilitate bowel movement. Patient education on risk of falling forward off of bedside commode and encouraged to sit up right to promote safety on BSC. Patient educated by this nurse that patient unsafe to be attached to sera lift alone on BSC. Patient agitation continues. Continues to demand sera lift remain attached while on the toilet and requests for time alone with call light. Further education provided regarding safety concern, risk for fall and injury if sera lift remains attached to patient, patient agrees for removal of sera lift while on BSC. Enemeez administered per request as ordered. database marketing specialist x2 remain with patient offering HS care.
[2024-03-10] MEDS: Tamsulosin HCl 0.4 MG Capsule PO (21:36)
[2024-03-10] MEDS: Citalopram 20 MG Tablet PO (21:36)
[2024-03-10 22:00] VITALS: PULSE 68; RESP 16; O2SAT 96
[2024-03-10 22:33] VITALS: BP 178/86; PULSE 75; RESP 16
[2024-03-11] MEDS: Acetaminophen 500 MG Tablet 1000 MG PO ×3 (05:16→21:27)
[2024-03-11] MEDS: Cholecalciferol (VIT D3) 25 MCG TABLET (1,000 UNITS) PO (09:20)
[2024-03-11] MEDS: Senna/Docusate Sodium 1 Tablet PO ×2 (09:20→21:29)
[2024-03-11] MEDS: Methenamine Hippurate 1 GM Tablet PO ×2 (09:20→21:28)
[2024-03-11] MEDS: APIXABAN 5 MG TABLET PO ×2 (09:20→21:30)
[2024-03-11] MEDS: Gabapentin 600 MG Tablet PO ×2 (09:20→21:37)
[2024-03-11] MEDS: Potassium Chloride Oral Tablet 20 MEQ PO (09:20)
[2024-03-11] MEDS: Carvedilol 12.5 MG Tablet PO ×2 (09:20→21:31)
[2024-03-11] MEDS: Menthol/Lanolin/Calamine/Znox 113 GM Tube 1 APPLIC TOPICAL ×2 (09:20→21:32)
[2024-03-11] MEDS: Vitamin E 400 UNITS Capsule PO (09:21)
[2024-03-11] MEDS: Lisinopril 20 MG Tablet PO (09:21)
[2024-03-11] MEDS: Nystatin Powder 15gm Bottle 1 APPLIC TOPICAL ×2 (09:23→21:29)
[2024-03-11] MEDS: Magnesium Citrate 300 ML PO (10:43)
[2024-03-11 11:16] VITALS: BP 115/60; PULSE 64; RESP 16; TEMP 36.7; O2SAT 99
[2024-03-11] MEDS: Ascorbic Acid 500 MG Tablet 1000 MG PO (11:41)
[2024-03-11] MEDS: Tamsulosin HCl 0.4 MG Capsule PO (21:30)
[2024-03-11] MEDS: Citalopram 20 MG Tablet PO (21:32)
[2024-03-12] MEDS: Acetaminophen 500 MG Tablet 1000 MG PO ×3 (05:14→21:54)
[2024-03-12] MEDS: APIXABAN 5 MG TABLET PO ×2 (07:57→21:55)
[2024-03-12] MEDS: Potassium Chloride Oral Tablet 20 MEQ PO (07:57)
[2024-03-12] MEDS: Senna/Docusate Sodium 1 Tablet PO ×2 (07:57→21:54)
[2024-03-12] MEDS: Gabapentin 600 MG Tablet PO ×2 (07:57→21:53)
[2024-03-12] MEDS: Vitamin E 400 UNITS Capsule PO (07:57)
[2024-03-12] MEDS: Lisinopril 20 MG Tablet PO (07:57)
[2024-03-12] MEDS: Methenamine Hippurate 1 GM Tablet PO ×2 (07:57→21:54)
[2024-03-12] MEDS: Cholecalciferol (VIT D3) 25 MCG TABLET (1,000 UNITS) PO (07:57)
[2024-03-12] MEDS: Carvedilol 12.5 MG Tablet PO ×2 (07:57→21:54)
[2024-03-12] MEDS: Ascorbic Acid 500 MG Tablet 1000 MG PO (07:58)
[2024-03-12] MEDS: Nystatin Powder 15gm Bottle 1 APPLIC TOPICAL ×2 (07:58→21:53)
[2024-03-12] MEDS: Menthol/Lanolin/Calamine/Znox 113 GM Tube 1 APPLIC TOPICAL ×2 (07:58→21:54)
[2024-03-12 10:18] VITALS: BP 127/72; PULSE 70; RESP 18; TEMP 36.8; O2SAT 99
[2024-03-12] MEDS: MELATONIN 3 MG TABLET PO (21:53)
[2024-03-12] MEDS: Citalopram 20 MG Tablet PO (21:54)
[2024-03-12 21:55] VITALS: BP 168/79; RESP 16
[2024-03-12] MEDS: Tamsulosin HCl 0.4 MG Capsule PO (21:55)
[2024-03-13] MEDS: Acetaminophen 500 MG Tablet 1000 MG PO ×3 (05:00→20:29)
[2024-03-13] MEDS: Menthol/Lanolin/Calamine/Znox 113 GM Tube 1 APPLIC TOPICAL ×2 (09:36→20:29)
[2024-03-13] MEDS: Potassium Chloride Oral Tablet 20 MEQ PO (09:37)
[2024-03-13] MEDS: APIXABAN 5 MG TABLET PO ×2 (09:37→20:29)
[2024-03-13] MEDS: Carvedilol 12.5 MG Tablet PO ×2 (09:37→20:28)
[2024-03-13] MEDS: Nystatin Powder 15gm Bottle 1 APPLIC TOPICAL ×2 (09:38→20:29)
[2024-03-13] MEDS: Methenamine Hippurate 1 GM Tablet PO ×2 (09:38→20:29)
[2024-03-13] MEDS: Vitamin E 400 UNITS Capsule PO (09:38)
[2024-03-13] MEDS: Senna/Docusate Sodium 1 Tablet PO ×2 (09:38→20:29)
[2024-03-13] MEDS: Ascorbic Acid 500 MG Tablet 1000 MG PO (09:39)
[2024-03-13] MEDS: Lisinopril 20 MG Tablet PO (09:39)
[2024-03-13] MEDS: Cholecalciferol (VIT D3) 25 MCG TABLET (1,000 UNITS) PO (09:39)
[2024-03-13] MEDS: Gabapentin 600 MG Tablet PO ×2 (09:41→20:31)
[2024-03-13 09:49] VITALS: BP 153/76; PULSE 70; O2SAT 95
[2024-03-13 10:54] VITALS: RESP 16; TEMP 36.1
[2024-03-13 13:00] VITALS: PULSE 69; RESP 18; O2SAT 97
--- NOTE | 2024-03-13 13:22 | WOUNDNOTE ---
Pt is currently up in the chair. DAE Valencia stated she changed the Mepilex dressing this am sinve there was some stool noted on the old dressing. states the wound continues to improve. will try to assess in the am before patient gets up out of bed. Pt denies pain or needs at this time.
[2024-03-13] MEDS: Citalopram 20 MG Tablet PO (20:28)
[2024-03-13] MEDS: MELATONIN 3 MG TABLET PO (20:29)
[2024-03-13] MEDS: Tamsulosin HCl 0.4 MG Capsule PO (20:29)
[2024-03-14] MEDS: Acetaminophen 500 MG Tablet 1000 MG PO ×3 (05:43→20:43)
[2024-03-14 05:51] LABS: Absolute Lymphocyte Count 1.06 X10^3/uL (0.83-4.51); Absolute Neutrophil Count 5.6 X10^3/uL (2.0-7.7); Basophil# 0.03 X10^3/uL; Basophil% 0.4 % (0-1); Eosinophil# 0.24 X10^3/uL; Eosinophils% 3.2 % (0-5); Hematocrit 32.2 % (40-54); Hemoglobin 10.2 g/dL (13.0-16.5); Lymphocyte # 1.06 X10^3/ul (0.83-4.51); Lymphocyte % 14.1 % (19-41); Mean Corp Hgb Conc 31.7 g/dL (32-36); Mean Corpuscular Hgb 27.8 pg (27.0-32.0); Mean Corpuscular Volume 87.7 fL (80-94); Mean Platelet Vol. 10.2 fl (6.2-12.0); Monocyte# 0.53 X10^3/uL; NRBC Flagged by Analyzer 0 % (0-5); Neutrophil # 5.64 X10^3/uL (2.7-7.7); Platelet Count 168 K/mm3 (150-450); RBC Distribution Width CV 14.6 % (11.6-14.6); RBC Distribution Width SD 47.1 fl (35.1-43.9); Red Blood Count 3.67 M/mm3 (4.6-6.2); White Blood Count 7.5 K/mm3 (4.4-11.0)
[2024-03-14 06:16] LABS: Anion Gap 4 (5-15); BUN 25 mg/dL (7-18); BUN/Creat Ratio 29.8 RATIO (10-20); Calcium,Total 8.9 mg/dL (8.5-10.1); Chloride 109 mmol/L (98-107); Creatinine, Serum 0.84 mg/dL (0.70-1.30); EST Glomerular Filtration Rate 94 mL/min (>60); Est Glom Filt Rate - Afr Amer 114 mL/min (>60); Estimated Creatinine Clearance 88.98 ml/min; Glucose 94 mg/dL (74-106); Potassium 3.6 mmol/L (3.5-5.1); Sodium Level 138 mmol/L (136-145)
[2024-03-14] MEDS: Menthol/Lanolin/Calamine/Znox 113 GM Tube 1 APPLIC TOPICAL ×2 (09:03→20:42)
[2024-03-14] MEDS: Nystatin Powder 15gm Bottle 1 APPLIC TOPICAL ×2 (09:04→20:43)
[2024-03-14] MEDS: Potassium Chloride Oral Tablet 20 MEQ PO (09:05)
[2024-03-14] MEDS: Carvedilol 12.5 MG Tablet PO ×2 (09:06→20:43)
[2024-03-14] MEDS: APIXABAN 5 MG TABLET PO ×2 (09:06→20:43)
[2024-03-14] MEDS: Cholecalciferol (VIT D3) 25 MCG TABLET (1,000 UNITS) PO (09:07)
[2024-03-14] MEDS: Methenamine Hippurate 1 GM Tablet PO ×2 (09:07→20:43)
[2024-03-14] MEDS: Lisinopril 20 MG Tablet PO (09:07)
[2024-03-14] MEDS: Vitamin E 400 UNITS Capsule PO (09:07)
[2024-03-14] MEDS: Senna/Docusate Sodium 1 Tablet PO ×2 (09:07→20:43)
[2024-03-14] MEDS: Gabapentin 600 MG Tablet PO ×2 (09:09→20:44)
[2024-03-14 09:13] VITALS: BP 124/63; PULSE 71; O2SAT 97
--- NOTE | 2024-03-14 09:44 | WOUNDNOTE ---
wound photo: bilateral buttocks
[2024-03-14] MEDS: Ascorbic Acid 500 MG Tablet 1000 MG PO (11:47)
[2024-03-14 13:00] VITALS: PULSE 71; RESP 18; O2SAT 97
--- NOTE | 2024-03-14 15:42 | CHAPLAIN ---
Type of Pastoral Visit ___ Initial Visit _x__ Follow-up Visit ___ On-call Visit ___ General Patient Visit ___ Spiritual Assessment ___ Family Conference ___ Bereavement ___ Rapid Response ___ Code Blue ___ Other (describe below) Pastoral Care Referral From ___ Patient _x__ Family ___ Nurse ___ Physician ___ Bedspread Cutter ___ Orthotic/Prosthetic Clinician ___ Other (describe below) Sacrament/Intervention _x__ Active listening ___ Anointing ___ Yarsanism ___ Bereavement ___ Communion _x__ Angie exploration ___ _x__ Life review _x__ Prayer ___ Reconciliation ___ Sacrament of Sick ___ Supportive presence ___ Wedding ___ Other (describe below) Pastoral Comments spouse of this patient requested a visit today; found patient watching a football game and at the bedside; both are welcoming and pt turns off the TV; talk continues about sports, family, and [place] time gathering here in the [facility]; pt also admits to some of the questions that he is having about why he has had these physical setbacks and struggles; reflecting listening occurs and spiritual insights are mentioned to this family that expresses strong angie in God; affirmation of questions being asked even is given because these are common thoughts that go through a patient's mind; presence is given as an expression of good care and it is noticed and stated by this couple
[2024-03-14] MEDS: Tamsulosin HCl 0.4 MG Capsule PO (20:43)
[2024-03-14] MEDS: Citalopram 20 MG Tablet PO (20:43)
[2024-03-14] MEDS: MELATONIN 3 MG TABLET PO (20:43)
[2024-03-15] MEDS: Acetaminophen 500 MG Tablet 1000 MG PO ×3 (05:42→22:37)
[2024-03-15 09:04] VITALS: BP 164/85; PULSE 69; RESP 16; TEMP 36.9; O2SAT 97
[2024-03-15] MEDS: APIXABAN 5 MG TABLET PO ×2 (09:06→22:38)
[2024-03-15] MEDS: Potassium Chloride Oral Tablet 20 MEQ PO (09:06)
[2024-03-15] MEDS: Carvedilol 12.5 MG Tablet PO ×2 (09:06→22:38)
[2024-03-15] MEDS: Vitamin E 400 UNITS Capsule PO (09:07)
[2024-03-15] MEDS: Methenamine Hippurate 1 GM Tablet PO ×2 (09:07→22:38)
[2024-03-15] MEDS: Cholecalciferol (VIT D3) 25 MCG TABLET (1,000 UNITS) PO (09:07)
[2024-03-15] MEDS: Senna/Docusate Sodium 1 Tablet PO ×2 (09:07→22:37)
[2024-03-15] MEDS: Menthol/Lanolin/Calamine/Znox 113 GM Tube 1 APPLIC TOPICAL ×2 (09:08→22:36)
[2024-03-15] MEDS: Lisinopril 20 MG Tablet PO (09:08)
[2024-03-15] MEDS: Nystatin Powder 15gm Bottle 1 APPLIC TOPICAL ×2 (09:08→22:36)
[2024-03-15] MEDS: Gabapentin 600 MG Tablet PO ×2 (09:10→22:36)
[2024-03-15] MEDS: Ascorbic Acid 500 MG Tablet 1000 MG PO (12:49)
[2024-03-15 13:47] VITALS: BMI 34.5
[2024-03-15 21:00] VITALS: PULSE 65; RESP 16; O2SAT 95
[2024-03-15 22:30] VITALS: BP 181/85; PULSE 62; RESP 16
[2024-03-15] MEDS: MELATONIN 3 MG TABLET PO (22:37)
[2024-03-15] MEDS: Tamsulosin HCl 0.4 MG Capsule PO (22:38)
[2024-03-15] MEDS: Citalopram 20 MG Tablet PO (22:38)
[2024-03-16] MEDS: Acetaminophen 500 MG Tablet 1000 MG PO ×3 (05:06→22:20)
[2024-03-16] MEDS: Menthol/Lanolin/Calamine/Znox 113 GM Tube 1 APPLIC TOPICAL ×2 (10:07→22:12)
[2024-03-16] MEDS: Potassium Chloride Oral Tablet 20 MEQ PO (10:07)
[2024-03-16] MEDS: Ascorbic Acid 500 MG Tablet 1000 MG PO (10:08)
[2024-03-16] MEDS: APIXABAN 5 MG TABLET PO ×2 (10:08→22:14)
[2024-03-16] MEDS: Carvedilol 12.5 MG Tablet PO ×2 (10:08→22:13)
[2024-03-16] MEDS: Methenamine Hippurate 1 GM Tablet PO ×2 (10:09→22:14)
[2024-03-16] MEDS: Senna/Docusate Sodium 1 Tablet PO ×2 (10:09→22:19)
[2024-03-16] MEDS: Cholecalciferol (VIT D3) 25 MCG TABLET (1,000 UNITS) PO (10:09)
[2024-03-16] MEDS: Vitamin E 400 UNITS Capsule PO (10:09)
[2024-03-16] MEDS: Gabapentin 600 MG Tablet PO ×2 (10:11→22:19)
[2024-03-16] MEDS: amLODIPine 10 MG Tablet PO (10:12)
[2024-03-16] MEDS: Losartan Potassium 100 MG Tablet PO (10:13)
[2024-03-16] MEDS: Nystatin Powder 15gm Bottle 1 APPLIC TOPICAL ×2 (10:19→22:15)
[2024-03-16 10:30] VITALS: PULSE 61; RESP 18; O2SAT 95
[2024-03-16 10:33] VITALS: BP 164/82; PULSE 61; RESP 16; O2SAT 95
[2024-03-16 11:42] VITALS: TEMP 36.6
--- NOTE | 2024-03-16 14:15 | NURSING ---
FINE CRACKLES TO RT LOWER POST. I.S GIVEN TO PT AND EDUCATED. PT SHOWED DEMONSTRATION AND UNDER STANDING. WILL CONTINUE TO MONITOR.
--- NOTE | 2024-03-16 15:20 | NURSING ---
PT AND UPDATED ON MED CHANGES. VOICED UNDER STANDING. VENDING MACHINE ASSEMBLER AND STATED PT HAD SMALL AMOUNT OF BLOOD ON WIPES AFTER BM. ASKED PT IF HE HAS HAD HEMORRHOIDS,PT DENIED HAVING ANY. PT DOES GET ENEMAS TWICE A DAY AND HAS LOOSE STOOLS. PT DENIES ANY BURNING OR ITCHING. WILL CONTINUE TO MONITOR.
[2024-03-16 22:09] VITALS: BP 155/70; PULSE 64
[2024-03-16] MEDS: Citalopram 20 MG Tablet PO (22:13)
[2024-03-16] MEDS: MELATONIN 3 MG TABLET PO (22:14)
[2024-03-16] MEDS: Tamsulosin HCl 0.4 MG Capsule PO (22:14)
[2024-03-17] MEDS: Acetaminophen 500 MG Tablet 1000 MG PO ×3 (05:51→22:33)
[2024-03-17 09:00] VITALS: BP 142/69; PULSE 66; RESP 18; TEMP 36.5; O2SAT 97
[2024-03-17] MEDS: Carvedilol 12.5 MG Tablet PO ×2 (09:17→22:29)
[2024-03-17] MEDS: APIXABAN 5 MG TABLET PO ×2 (09:17→22:30)
[2024-03-17] MEDS: Potassium Chloride Oral Tablet 20 MEQ PO (09:18)
[2024-03-17] MEDS: Menthol/Lanolin/Calamine/Znox 113 GM Tube 1 APPLIC TOPICAL ×2 (09:18→22:29)
[2024-03-17] MEDS: Cholecalciferol (VIT D3) 25 MCG TABLET (1,000 UNITS) PO (09:18)
[2024-03-17] MEDS: Methenamine Hippurate 1 GM Tablet PO ×2 (09:18→22:30)
[2024-03-17] MEDS: Senna/Docusate Sodium 1 Tablet PO ×2 (09:18→22:33)
[2024-03-17] MEDS: Gabapentin 600 MG Tablet PO ×2 (09:18→22:36)
[2024-03-17] MEDS: Nystatin Powder 15gm Bottle 1 APPLIC TOPICAL ×2 (09:18→22:31)
[2024-03-17] MEDS: Losartan Potassium 100 MG Tablet PO (09:18)
[2024-03-17] MEDS: Vitamin E 400 UNITS Capsule PO (09:18)
[2024-03-17] MEDS: amLODIPine 10 MG Tablet PO (09:18)
[2024-03-17] MEDS: Ascorbic Acid 500 MG Tablet 1000 MG PO (11:26)
[2024-03-17] MEDS: Magnesium Citrate 300 ML PO (14:37)
[2024-03-17 22:00] VITALS: PULSE 68; RESP 16; O2SAT 95
[2024-03-17 22:26] VITALS: BP 130/61; PULSE 68; RESP 16; TEMP 36.8; O2SAT 95
[2024-03-17] MEDS: Citalopram 20 MG Tablet PO (22:30)
[2024-03-17] MEDS: Tamsulosin HCl 0.4 MG Capsule PO (22:30)
[2024-03-17] MEDS: MELATONIN 3 MG TABLET PO (22:32)
[2024-03-18] MEDS: Acetaminophen 500 MG Tablet 1000 MG PO ×3 (05:10→22:58)
[2024-03-18 09:30] VITALS: BP 119/56; PULSE 67; RESP 16; TEMP 36.5; O2SAT 96
[2024-03-18] MEDS: Vitamin E 400 UNITS Capsule PO (09:30)
[2024-03-18] MEDS: Cholecalciferol (VIT D3) 25 MCG TABLET (1,000 UNITS) PO (09:30)
[2024-03-18] MEDS: amLODIPine 10 MG Tablet PO (09:30)
[2024-03-18] MEDS: Senna/Docusate Sodium 1 Tablet PO (09:30)
[2024-03-18] MEDS: Gabapentin 600 MG Tablet PO ×2 (09:30→23:04)
[2024-03-18] MEDS: Nystatin Powder 15gm Bottle 1 APPLIC TOPICAL ×2 (09:31→22:55)
[2024-03-18] MEDS: Losartan Potassium 100 MG Tablet PO (09:31)
[2024-03-18] MEDS: Menthol/Lanolin/Calamine/Znox 113 GM Tube 1 APPLIC TOPICAL ×2 (09:31→22:58)
[2024-03-18] MEDS: Methenamine Hippurate 1 GM Tablet PO ×2 (09:31→22:56)
[2024-03-18] MEDS: Carvedilol 12.5 MG Tablet PO ×2 (09:31→22:57)
[2024-03-18] MEDS: Potassium Chloride Oral Tablet 20 MEQ PO (09:31)
[2024-03-18] MEDS: APIXABAN 5 MG TABLET PO ×2 (09:31→22:57)
[2024-03-18 10:15] VITALS: PULSE 67; RESP 16; O2SAT 96
[2024-03-18] MEDS: Ascorbic Acid 500 MG Tablet 1000 MG PO (12:05)
[2024-03-18] MEDS: Oseltamivir Phosphate 75 MG Capsule PO (22:54)
[2024-03-18] MEDS: Tamsulosin HCl 0.4 MG Capsule PO (22:56)
[2024-03-18] MEDS: MELATONIN 3 MG TABLET PO (22:56)
[2024-03-18] MEDS: Citalopram 20 MG Tablet PO (22:58)
[2024-03-19] MEDS: Acetaminophen 500 MG Tablet 1000 MG PO ×3 (06:01→22:05)
[2024-03-19] MEDS: Menthol/Lanolin/Calamine/Znox 113 GM Tube 1 APPLIC TOPICAL ×2 (09:09→22:02)
[2024-03-19] MEDS: Potassium Chloride Oral Tablet 20 MEQ PO (09:09)
[2024-03-19] MEDS: Gabapentin 600 MG Tablet PO ×2 (09:09→22:03)
[2024-03-19] MEDS: Cholecalciferol (VIT D3) 25 MCG TABLET (1,000 UNITS) PO (09:10)
[2024-03-19] MEDS: Senna/Docusate Sodium 1 Tablet PO ×2 (09:10→22:03)
[2024-03-19] MEDS: APIXABAN 5 MG TABLET PO ×2 (09:10→22:04)
[2024-03-19] MEDS: Methenamine Hippurate 1 GM Tablet PO ×2 (09:10→22:05)
[2024-03-19] MEDS: Vitamin E 400 UNITS Capsule PO (09:10)
[2024-03-19] MEDS: amLODIPine 10 MG Tablet PO (09:12)
[2024-03-19] MEDS: Carvedilol 12.5 MG Tablet PO ×2 (09:12→22:04)
[2024-03-19] MEDS: Losartan Potassium 100 MG Tablet PO (09:12)
[2024-03-19] MEDS: Nystatin Powder 15gm Bottle 1 APPLIC TOPICAL ×2 (09:14→22:02)
[2024-03-19 09:15] VITALS: BP 148/83; PULSE 66; RESP 16; TEMP 36.8; O2SAT 95
[2024-03-19 10:00] VITALS: PULSE 67; RESP 16; O2SAT 96
[2024-03-19] MEDS: Ascorbic Acid 500 MG Tablet 1000 MG PO (11:18)
[2024-03-19 22:00] VITALS: BP 121/72; PULSE 68
[2024-03-19] MEDS: MELATONIN 3 MG TABLET PO (22:03)
[2024-03-19] MEDS: Oseltamivir Phosphate 75 MG Capsule PO (22:03)
[2024-03-19] MEDS: Tamsulosin HCl 0.4 MG Capsule PO (22:04)
[2024-03-19] MEDS: Citalopram 20 MG Tablet PO (22:04)
[2024-03-20] MEDS: Acetaminophen 500 MG Tablet 1000 MG PO ×3 (05:40→21:53)
[2024-03-20] MEDS: Gabapentin 600 MG Tablet PO ×2 (09:41→21:49)
[2024-03-20] MEDS: Methenamine Hippurate 1 GM Tablet PO ×2 (09:41→21:51)
[2024-03-20] MEDS: Carvedilol 12.5 MG Tablet PO ×2 (09:41→21:50)
[2024-03-20] MEDS: APIXABAN 5 MG TABLET PO ×2 (09:41→21:50)
[2024-03-20] MEDS: Cholecalciferol (VIT D3) 25 MCG TABLET (1,000 UNITS) PO (09:41)
[2024-03-20] MEDS: amLODIPine 10 MG Tablet PO (09:41)
[2024-03-20] MEDS: Senna/Docusate Sodium 1 Tablet PO ×2 (09:41→21:51)
[2024-03-20] MEDS: Vitamin E 400 UNITS Capsule PO (09:41)
[2024-03-20] MEDS: Nystatin Powder 15gm Bottle 1 APPLIC TOPICAL ×2 (09:42→21:48)
[2024-03-20] MEDS: Potassium Chloride Oral Tablet 20 MEQ PO (09:42)
[2024-03-20] MEDS: Losartan Potassium 100 MG Tablet PO (09:42)
[2024-03-20] MEDS: Menthol/Lanolin/Calamine/Znox 113 GM Tube 1 APPLIC TOPICAL ×2 (09:43→21:47)
[2024-03-20 09:55] VITALS: BP 146/64; PULSE 66
[2024-03-20] MEDS: Ascorbic Acid 500 MG Tablet 1000 MG PO (12:05)
[2024-03-20 14:29] VITALS: BP 110/55; PULSE 62; RESP 16; TEMP 36.3; O2SAT 95
[2024-03-20 21:45] VITALS: BP 135/75; PULSE 68
[2024-03-20] MEDS: Citalopram 20 MG Tablet PO (21:50)
[2024-03-20] MEDS: MELATONIN 3 MG TABLET PO (21:51)
[2024-03-20] MEDS: Tamsulosin HCl 0.4 MG Capsule PO (21:51)
[2024-03-20] MEDS: Oseltamivir Phosphate 75 MG Capsule PO (21:53)
[2024-03-21] MEDS: Acetaminophen 500 MG Tablet 1000 MG PO ×3 (06:09→22:27)
[2024-03-21 06:13] LABS: Absolute Lymphocyte Count 0.95 X10^3/uL (0.83-4.51); Absolute Neutrophil Count 5.5 X10^3/uL (2.0-7.7); Basophil# 0.04 X10^3/uL; Basophil% 0.6 % (0-1); Eosinophils% 2.8 % (0-5); Hematocrit 32.3 % (40-54); Hemoglobin 10.1 g/dL (13.0-16.5); Lymphocyte # 0.95 X10^3/ul (0.83-4.51); Lymphocyte % 13.2 % (19-41); Mean Corp Hgb Conc 31.3 g/dL (32-36); Mean Corpuscular Hgb 27.4 pg (27.0-32.0); Mean Corpuscular Volume 87.8 fL (80-94); Mean Platelet Vol. 10.1 fl (6.2-12.0); Monocyte# 0.52 X10^3/uL; Monocyte% 7.2 % (0-10); NRBC Flagged by Analyzer 0 % (0-5); Neutrophil # 5.48 X10^3/uL (2.7-7.7); Neutrophil % 75.8 % (47-70); Platelet Count 184 K/mm3 (150-450); RBC Distribution Width CV 14.7 % (11.6-14.6); RBC Distribution Width SD 47.8 fl (35.1-43.9); Red Blood Count 3.68 M/mm3 (4.6-6.2); White Blood Count 7.2 K/mm3 (4.4-11.0)
[2024-03-21 06:16] LABS: Anion Gap 2 (5-15); BUN 20 mg/dL (7-18); BUN/Creat Ratio 23.9 RATIO (10-20); Calcium,Total 8.7 mg/dL (8.5-10.1); Chloride 109 mmol/L (98-107); Creatinine, Serum 0.84 mg/dL (0.70-1.30); EST Glomerular Filtration Rate 94 mL/min (>60); Est Glom Filt Rate - Afr Amer 114 mL/min (>60); Glucose 92 mg/dL (74-106); Potassium 3.6 mmol/L (3.5-5.1); Sodium Level 138 mmol/L (136-145)
[2024-03-21] MEDS: Potassium Chloride Oral Tablet 20 MEQ PO (10:07)
[2024-03-21] MEDS: Menthol/Lanolin/Calamine/Znox 113 GM Tube 1 APPLIC TOPICAL ×2 (10:07→22:22)
[2024-03-21] MEDS: Carvedilol 12.5 MG Tablet PO ×2 (10:07→22:23)
[2024-03-21] MEDS: amLODIPine 10 MG Tablet PO (10:08)
[2024-03-21] MEDS: Senna/Docusate Sodium 1 Tablet PO ×2 (10:08→22:25)
[2024-03-21] MEDS: Vitamin E 400 UNITS Capsule PO (10:08)
[2024-03-21] MEDS: Cholecalciferol (VIT D3) 25 MCG TABLET (1,000 UNITS) PO (10:08)
[2024-03-21] MEDS: APIXABAN 5 MG TABLET PO ×2 (10:08→22:24)
[2024-03-21] MEDS: Losartan Potassium 100 MG Tablet PO (10:08)
[2024-03-21] MEDS: Methenamine Hippurate 1 GM Tablet PO ×2 (10:09→22:24)
[2024-03-21] MEDS: Nystatin Powder 15gm Bottle 1 APPLIC TOPICAL ×2 (10:09→22:22)
[2024-03-21] MEDS: Gabapentin 600 MG Tablet PO ×2 (10:12→22:22)
[2024-03-21 10:17] VITALS: BP 136/65; PULSE 68; RESP 18; O2SAT 97
[2024-03-21 10:30] VITALS: PULSE 68; RESP 18; O2SAT 97
[2024-03-21] MEDS: Ascorbic Acid 500 MG Tablet 1000 MG PO (11:50)
[2024-03-21 13:00] VITALS: BMI 34.9
[2024-03-21] MEDS: Magnesium Citrate 300 ML PO (17:16)
--- NOTE | 2024-03-21 17:34 | NURSING ---
PT REQUESTED MAG CITRATE DUE TO NO BM TODAY AND REFUSED ENEMA. PT STATED I FEEL SO BLOATED. RN AWARE
[2024-03-21 22:20] VITALS: BP 140/73; PULSE 71
[2024-03-21] MEDS: Citalopram 20 MG Tablet PO (22:23)
[2024-03-21] MEDS: Tamsulosin HCl 0.4 MG Capsule PO (22:24)
[2024-03-21] MEDS: Oseltamivir Phosphate 75 MG Capsule PO (22:25)
[2024-03-21] MEDS: MELATONIN 3 MG TABLET PO (22:25)
[2024-03-22] MEDS: Acetaminophen 500 MG Tablet 1000 MG PO ×3 (06:14→21:39)
[2024-03-22] MEDS: Nystatin Powder 15gm Bottle 1 APPLIC TOPICAL ×2 (09:39→21:39)
[2024-03-22] MEDS: Carvedilol 12.5 MG Tablet PO ×2 (09:44→21:36)
[2024-03-22] MEDS: Potassium Chloride Oral Tablet 20 MEQ PO (09:44)
[2024-03-22] MEDS: Losartan Potassium 100 MG Tablet PO (09:45)
[2024-03-22] MEDS: Senna/Docusate Sodium 1 Tablet PO ×2 (09:46→21:38)
[2024-03-22] MEDS: Methenamine Hippurate 1 GM Tablet PO ×2 (09:46→21:38)
[2024-03-22] MEDS: amLODIPine 10 MG Tablet PO (09:46)
[2024-03-22] MEDS: APIXABAN 5 MG TABLET PO ×2 (09:46→21:37)
[2024-03-22] MEDS: Vitamin E 400 UNITS Capsule PO (09:47)
[2024-03-22] MEDS: Cholecalciferol (VIT D3) 25 MCG TABLET (1,000 UNITS) PO (09:47)
[2024-03-22] MEDS: Gabapentin 600 MG Tablet PO ×2 (09:53→21:43)
[2024-03-22 10:00] VITALS: PULSE 62; RESP 18; O2SAT 92
[2024-03-22 10:04] VITALS: BP 112/54; PULSE 79; RESP 18; O2SAT 92
[2024-03-22] MEDS: Ascorbic Acid 500 MG Tablet 1000 MG PO (13:08)
[2024-03-22 16:21] VITALS: TEMP 36.7
[2024-03-22 18:26] VITALS: TEMP 37.1
--- NOTE | 2024-03-22 18:27 | NURSING ---
Addendum entered by Erik Ham 03/22/24 18:34: TEMPS WITH IN NORMAL LIMITS. Original Note: PT HAS ASKED STAFF TO CHECK HIS TEMP TWICE TODAY. PT STATED HE JUST FEELS HOT. THERMOSTAT WAS ON HIGH AND HAD A BLANKET ON,TURNED THERMOSTAT DOWN HAVE WAY. PT STATED I WAS COLD THIS MORNING. WILL CONTINUE TO MONITOR AND LET NEXT SHIFT KNOW. RN AWARE
[2024-03-22 19:54] VITALS: BP 139/72; PULSE 76; RESP 16; TEMP 37.7; O2SAT 95
--- NOTE | 2024-03-22 19:55 | NURSING ---
Patient with c/o chills, T-99.9, urine in starr cloudy with sediment, no confusion, no sore throat, at bedside, Dr. Gallardo updated on fever, Dr. Gallardo to put orders in.
--- NOTE | 2024-03-22 20:17 | NURSING ---
COVID 19 and urine culture and urinalysis collected per order. Respiratory updated to collect respiratory panel.
[2024-03-22 20:23] LABS: Bacteria 0 SEEN /hpf (None Seen); Mucous, Urine 0 SEEN /hpf (<or=2+); Red Blood Cells-Urine 0 SEEN /hpf (0-5); Squamous Epithelial Cells - UA 0 SEEN /hpf (0-5)
[2024-03-22 20:27] LABS: Color, Urine Yellow (Yellow); Glucose, Dipstick Normal (Normal); Ketone-Dipstick Negative (Negative); Leukocyte Esterase-Dipstick 500 /ul (Negative); Nitrite-Dipstick Positive (Negative); Occult Blood-Urine 150 /ul (Negative); Protein-Dipstick 100 mg/dl (Negative); Specific Gravity, Urine 1.015 (1.002-1.030); Urine Bilirubin Dipstick Negative (Negative); Urine Clarity Turbid (Clear); Urine Urobilinogen Normal (Normal); Urine pH 6.5 (5.0 - 8.0)
--- NOTE | 2024-03-22 20:40 | RAD_ITS ---
EXAM: XR CHEST, 2 VIEWS CLINICAL INDICATION: Fever. TECHNIQUE: Frontal and lateral views of the chest. COMPARISON: 02/21/2024. FINDINGS: LUNGS AND PLEURAL SPACES: Left basilar pulmonary opacity may be atelectasis or pneumonia. Possible left pleural effusion. No pneumothorax. HEART: Cardiomegaly and/or pericardial effusion. MEDIASTINUM: Central airways and mediastinal contour are unremarkable. BONES/JOINTS: Operative changes in the spine and degenerative changes in the spine and shoulders. No acute fracture. SOFT TISSUES: No significant abnormality. TUBES, LINES AND DEVICES: Left-sided cardiac device. RAD/Chest PA and Lateral IMPRESSION: 1. Cardiomegaly and/or pericardial effusion. 2. Left basilar pulmonary opacity may be atelectasis or pneumonia. Possible left pleural effusion. Electronically Signed: Freddie Rodríguez DO at 23:35 EST ,
[2024-03-22 20:42] LABS: White Blood Cells >100 SEEN /hpf (0-5)
--- NOTE | 2024-03-22 20:43 | NURSING ---
Dr. Gallardo updated on positive urinalysis, informed to await results of urine culture.
[2024-03-22] MEDS: Citalopram 20 MG Tablet PO (21:36)
[2024-03-22] MEDS: Tamsulosin HCl 0.4 MG Capsule PO (21:37)
[2024-03-22 21:38] LABS: Anion Gap 7 (5-15); BUN 25 mg/dL (7-18); BUN/Creat Ratio 23.6 RATIO (10-20); Calcium,Total 9.4 mg/dL (8.5-10.1); Chloride 106 mmol/L (98-107); Creatinine, Serum 1.06 mg/dL (0.70-1.30); EST Glomerular Filtration Rate 72 mL/min (>60); Est Glom Filt Rate - Afr Amer 87 mL/min (>60); Estimated Creatinine Clearance 70.32 ml/min; Glucose 118 mg/dL (74-106); Potassium 4.5 mmol/L (3.5-5.1); Sodium Level 137 mmol/L (136-145)
[2024-03-22] MEDS: MELATONIN 3 MG TABLET PO (21:38)
[2024-03-22] MEDS: Oseltamivir Phosphate 75 MG Capsule PO (21:38)
[2024-03-22] MEDS: Menthol/Lanolin/Calamine/Znox 113 GM Tube 1 APPLIC TOPICAL (21:40)
[2024-03-22 22:14] LABS: Absolute Lymphocyte Count 0.43 X10^3/uL (0.83-4.51); Absolute Neutrophil Count 10.8 X10^3/uL (2.0-7.7); Basophil# 0.04 X10^3/uL; Basophil% 0.3 % (0-1); Eosinophil# 0.06 X10^3/uL; Eosinophils% 0.5 % (0-5); Hematocrit 34.1 % (40-54); Hemoglobin 11.3 g/dL (13.0-16.5); Lymphocyte # 0.43 X10^3/ul (0.83-4.51); Lymphocyte % 3.6 % (19-41); Mean Corp Hgb Conc 33.1 g/dL (32-36); Mean Corpuscular Hgb 28.5 pg (27.0-32.0); Mean Corpuscular Volume 85.9 fL (80-94); Monocyte# 0.64 X10^3/uL; Monocyte% 5.3 % (0-10); NRBC Flagged by Analyzer 0 % (0-5); Neutrophil # 10.81 X10^3/uL (2.7-7.7); Neutrophil % 89.9 % (47-70); POSITIVE DIFFERENTIAL YES; Platelet Count 187 K/mm3 (150-450); RBC Distribution Width CV 15.1 % (11.6-14.6); RBC Distribution Width SD 47.1 fl (35.1-43.9); Red Blood Count 3.97 M/mm3 (4.6-6.2)
--- NOTE | 2024-03-22 23:55 | NURSING ---
Dr. Gallardo updated with CXR results.
[2024-03-23] MEDS: Meropenem 1 GM in 0.9% Normal Saline (100mL MB+) 100 ML IV ×2 (00:10→05:03)
--- NOTE | 2024-03-23 03:24 | NURSING ---
Patient resting quietly with eyes closed, IV ATB infusing, temp 99.0,
[2024-03-23 03:26] VITALS: TEMP 37.2
[2024-03-23] MEDS: 0.9% Normal Saline (100mL Bag) 100 ML 15 ML IV (03:48)
[2024-03-23] MEDS: Acetaminophen 500 MG Tablet 1000 MG PO (05:07)
[2024-03-23 09:00] VITALS: BP 140/69; PULSE 74; RESP 18; TEMP 38.1; O2SAT 95
[2024-03-23] MEDS: Gabapentin 600 MG Tablet PO (09:01)
[2024-03-23] MEDS: Carvedilol 12.5 MG Tablet PO (09:01)
[2024-03-23] MEDS: Potassium Chloride Oral Tablet 20 MEQ PO (09:01)
[2024-03-23] MEDS: APIXABAN 5 MG TABLET PO (09:01)
[2024-03-23] MEDS: amLODIPine 10 MG Tablet PO (09:02)
[2024-03-23] MEDS: Losartan Potassium 100 MG Tablet PO (09:02)
[2024-03-23] MEDS: Methenamine Hippurate 1 GM Tablet PO (09:02)
[2024-03-23] MEDS: Cholecalciferol (VIT D3) 25 MCG TABLET (1,000 UNITS) PO (09:02)
[2024-03-23] MEDS: Vitamin E 400 UNITS Capsule PO (09:02)
[2024-03-23] MEDS: Senna/Docusate Sodium 1 Tablet PO (09:02)
[2024-03-23] MEDS: Menthol/Lanolin/Calamine/Znox 113 GM Tube 1 APPLIC TOPICAL (09:02)
[2024-03-23] MEDS: Nystatin Powder 15gm Bottle 1 APPLIC TOPICAL (09:03)
[2024-03-23 12:14] VITALS: BP 157/74; PULSE 77; TEMP 37.9; O2SAT 95
--- NOTE | 2024-03-23 12:35 | NURSING ---
Call from lab that blood cultures positive GNR. Resident has temp 100.3. Not acting himself per and staff. Updated Dr. Gallardo, order to sent to ER. RN spoke with resident and in room, reviewed test results and why resident should be sent to ER. Resident seems confused about plan, in agreement and thankful for update.
--- NOTE | 2024-03-23 12:46 | NURSING ---
Addendum entered by Caroline Lynch 03/23/24 13:29: Patient transferred to ER around 1245, saw in hallway after getting patient settled in ER bed. Updated her what room resident was in. Original Note: Called Report to ER. present in room and aware pt is being transferred to E.R.
--- NOTE | 2024-03-23 19:35 | DS.PCM_ITS ---
Providers Date of Admission: 02/28/24 Primary Care Physician: Dr. Tunde Beard DO Consultations 02/28/24 17:27 Consult: Onc/Wound/cloth examiner machine Routine Comment: Reason for Consult:: stage 1 on rt buttuck,open area on rt testical,rash groin 03/05/24 16:09 Consult: Infectious Disease Routine Consulting Provider: Tunde Stuart Reason for Consult: UTI EMERGENT Consult: No MD Notified: Yes Date Notified: 03/05/24 Time Notified: 16:09 Method of Notification: Text Reason For Visit: FAILURE TO THRIVE, FEVER OF UNKOWN ORIGI,UTI Diagnosis Discharge Diagnosis (1) Recurrent urinary tract infection: Status: Acute Code(s): N39.0 - Urinary tract infection, site not specified Plan 78 year old male with below past medical history hospitalized for Pseudomonas urinary tract infection, complicated by urinary retention, neurogenic bladder, bph, admitted to TCU with debility, here for rehabilitation, strengthening, prior to discharge home with . * Debility - PT/OT. * Pain - Tylenol 1000mg q6 prn pain (1-10). * Bowel - senna/colace 1 tablet bid, Magnesium citrate 300mL daily prn. * Adult immunization - Administer pneumonia vaccine, covid vaccine, flu vaccine as appropriate. * DVT prophylaxis - on Eliquis. * Atrial Fibrillation - Coreg 12.5mg bid, Eliquis 5mg bid. * Recurrent UTI - Vitamin C 1000mg lunch, Methenamine 1gm po bid. * Vitamin D deficiency - D3 25mcg daily. * Depression - Citalopram 20mg qhs, stable chronic prison use, GDR not recommended. * Neuropathic pain - Gabapentin 600mg bid. * Hypertension - Coreg 12.5mg bid, Lisinopril 20mg daily. * Skin irritation - Calmoseptine topical bid. * Tinea Corporis - Nystatin topical bid. * Hypokalemia - KCL 20meq daily. * BPH - Tamsulosin 0.4mg daily. * Urinary retention/neurogenic bladder - PrimoFit, bladderscan/straight cath as needed. * Vitamin E deficiency - Vitamin E 400IU daily. Medications at Discharge Home Medications ascorbic acid (vitamin C) 500 mg tablet 1,000 mg PO LUNCH supplement 08/17/21 tamsulosin 0.4 mg capsule 0.4 mg PO QHS Urine retention 30 days #30 caps 09/03/21 citalopram 20 mg tablet 20 mg PO QHS depression 12/04/21 carvedilol 12.5 mg tablet 12.5 mg PO BID BP 02/12/24 cholecalciferol (vitamin D3) 25 mcg (1,000 unit) capsule 25 mcg PO DAILY supplement 02/12/24 vitamin E 180 mg PO DAILY supplement 02/12/24 docusate sodium 283 mg/5 mL enema (Enemeez) 283 mg CA BID constipation 02/13/24 potassium chloride 10 mEq tablet,extended release(part/cryst) 20 meq (2 x 10 mEq) PO DAILYCM hypokalemia #60 tabs 02/17/24 gabapentin 600 mg tablet 600 mg PO BID nerve pain 02/21/24 methenamine hippurate 1 gram tablet 1 g PO BID urinary 30 days #60 tabs 02/28/24 apixaban 5 mg tablet (Eliquis) 5 mg PO BID blood thinner #180 tabs 03/14/24 Hospital Course Operations None Procedures None Summary of Care Provided Minutes Spent on Discharge: 15 Hospital Course: 78 year old male with below past medical history hospitalized for Pseudomonas urinary tract infection, complicated by urinary retention, neurogenic bladder, bph, admitted to TCU with debility, here for rehabilitation, strengthening, prior to discharge home with . 03/22/2024 Fever - cbcd wbc 12 with left shift, bmp ok, urinalysis, c+s, CXR, blood cultures, covid-19 negative , respiratory panel negative Pneumonia - Chest X-ray shows pneumonia, Meropenem 1gm iv q8 x 7 days. Complicated UTI - indwelling starr catheter, urinalysis c/w UTI, urine culture pending, previous urine culture grew Pseudomonas, Meropenem 1gm iv q8 x 7 days, using Meropenem because of allergies to ceftriaxone and levofloxacin and drug interactions. Previous Pseudomonas UTI treated by Dr. Stuart with Meropenem. 03/23/2024 Fever persists, resident unwell, blood culture positive gnr x 2 bottles. Discharge to [facility] ED 03/23/2024 for evaluation, admission to hospital. Weight / BMI Weight Weight: 106.912 kg Body Mass Index (BMI) 34.9 ABG / Lab / Microbiology Data 03/22/24 21:53 03/22/24 20:57 Laboratory: Laboratory Results - last 24 hr 03/22/24 20:09: Urine Color Yellow, Urine Clarity Turbid, Urine pH 6.5, Ur Specific [place] 1.015, Urine Protein 100 H, Urine Glucose (UA) Normal, Urine Ketones Negative, Urine Occult Blood 150 H, Urine Nitrite Positive H, Urine Bilirubin Negative, Urine Urobilinogen Normal, Ur Leukocyte Esterase 500 H, Urine RBC 0 SEEN, Urine WBC >100 SEEN, Ur Squamous Epith Cells 0 SEEN, Urine Bacteria 0 SEEN, Urine Mucus 0 SEEN 03/22/24 20:57: Sodium 137, Potassium 4.5, Chloride 106, Carbon Dioxide 24.0, Anion Gap 7, BUN 25 H, Creatinine 1.06, Estim Creat Clear Calc 70.32, Est GFR (MDRD) Af Amer 87, Est GFR (MDRD) Non-Af 72, BUN/Creatinine Ratio 23.6 H, G lucose 118 H, Calcium 9.4 03/22/24 21:53: WBC 12.0 H, RBC 3.97 L, Hgb 11.3 L, Hct 34.1 L, MCV 85.9, MCH 28.5, MCHC 33.1 D, RDW Std Deviation 47.1 H, RDW Coeff of Donna 15.1 H, Plt Count 187, MPV 10.0, Immature Gran % (Auto) 0.400, Neut % (Auto) 89.9 H, Lymph % (Auto) 3.6 L, [place] % (Auto) 5.3, Eos % (Auto) 0.5, Baso % (Auto) 0.3, Absolute Neuts (auto) 10.8 H, Absolute Lymphs (auto) 0.43 L, Nucleated RBC % 0 Microbiology: Microbiology 03/22/24 20:57 Blood Culture (Wb) - Anticubital Left Blood Culture - Preliminary 03/22/24 20:09 Urine Catheter - Starr Urine Culture - Preliminary Gram negative irineo 03/22/24 22:50 Mucosa - Nasopharyngeal Respiratory Panel (PCR) - Final 03/22/24 20:15 Nasal Secretion SARS-CoV-2 Antigen (Rapid) - Final 03/03/24 20:40 Urine Catheter - Starr Urine Culture - Final Pseudomonas aeruginosa 03/06/24 10:24 Nasal Secretion SARS-CoV-2 Antigen (Rapid) - Final Radiography Diagnostic Testing: Radiology Impression Chest X-Ray 03/22/24 20:40 IMPRESSION: 1. Cardiomegaly and/or pericardial effusion. 2. Left basilar pulmonary opacity may be atelectasis or pneumonia. Possible left pleural effusion. Electronically Signed: Freddie Rodríguez, at 23:35 EST Reading Location ID and State: [facility] / [place] Tel , Service support , D/C Instructions Discharge Diet: No restrictions Discharge Activity: Return to Normal Activity, May Shower and Use Walker Weight Bearing Status: Weight bearing as tolerated Call your doctor if you observe: Fever of 101 or Higher, Inability to urinate, Inability to have a bowel movement, Shortness of breath, Dizziness, Fainting spells, Swelling in the ankles, Chest pain and Uncontrolled pain DC O2, CPAP, BIPAP Needs Home O2 Discharge instructions: No Additional Instructions: Discharge to [facility] ED 03/23/2024 for evaluation, admission to hospital. Meaningful Use Info Meaningful Use Meaningful Use Diagnoses (Choose all that apply): None applicable Ischemic Stroke Statin Dosing Therapy Reference: STATIN DOSE THERAPY REFERENCE: * Patients > 75 years receive moderate or high dose statin therapy. * Patients 75 years or YOUNGER should receive HIGH intensity statin dose unless contraindicated. You will be required to document reason for non-treatment if statin daily dose does not meet guidelines. HIGH DOSE STATIN THERAPY DAILY Atorvastatin > than or = to 40 mg Rosuvastatin > than or = to 20 mg Amlodipine + Atorvastatin > than or = to 2.5/40 mg Ezetimibe + Simvastatin 10/80 mg Simvastatin 80mg Discharge Plan Admission Admit Date/Time: 02/28/24 15:27 Primary Reason for Your Visit: Debility. Attending Provider: Luis Carlos Gallardo Chi Primary Care Provider: Tunde Beard Consulting Providers: Tunde Stuart Instructions Additional Instructions / Restrictions: Discharge to [facility] ED 03/23/2024 for evaluation, admission to hospital. Discharge Orders/Prescriptions Prescriptions: No Action citalopram 20 mg tablet 20 mg PO QHS ascorbic acid (vitamin C) 500 mg tablet 1,000 mg PO LUNCH tamsulosin 0.4 mg Capsule 0.4 mg PO QHS 30 Days Qty: 30 0RF methenamine hippurate 1 gram tablet 1 g PO BID 30 Days Qty: 60 0RF carvedilol 12.5 mg Tablet 12.5 mg PO BID vitamin E [Vitamin E-400] 180 mg PO DAILY cholecalciferol (vitamin D3) 25 mcg (1,000 unit) capsule 25 mcg PO DAILY docusate sodium [Enemeez] 283 mg/5 mL enema 283 mg CA BID potassium chloride 10 mEq Tablet,Er Particles/Crystals 20 meq PO DAILYCM Qty: 60 0RF gabapentin 600 mg tablet 600 mg PO BID Eliquis 5 mg tablet 5 mg PO BID Qty: 180 3RF Referrals / Follow Up: Tunde Beard DO [Primary Care Provider] - Disposition Disposition (needs filled in before D/C Order can be placed): Acute Care Hospital [facility]
== END 2024-03-23 12:30 | disposition short-term general hospital (02) | DRG 689 ==
PROVIDERS: Admitting Provider Family Medicine Geriatric Medicine; PCP Preventive Medicine Occupational Medicine; Visit Provider Family Medicine Geriatric Medicine
DX: N39.0 Urinary tract infection, site not specified (principal); G82.54 Quadriplegia, C5-C7 incomplete; J18.9 Pneumonia, unspecified organism; L89.311 Pressure ulcer of right buttock, stage 1; G62.9 Polyneuropathy, unspecified; B96.5 Pseudomonas (aeruginosa) (mallei) (pseudomallei) as the cause of diseases classified elsewhere; B35.4 Tinea corporis; I48.91 Unspecified atrial fibrillation; I10 Essential (primary) hypertension; F32.A Depression, unspecified; Z95.2 Presence of prosthetic heart valve; E55.9 Vitamin D deficiency, unspecified; E87.6 Hypokalemia; T83.511A Infection and inflammatory reaction due to indwelling urethral catheter, initial encounter; N31.9 Neuromuscular dysfunction of bladder, unspecified; N40.1 Benign prostatic hyperplasia with lower urinary tract symptoms; R33.8 Other retention of urine; Z79.899 Other long term (current) drug therapy; Z79.01 Long term (current) use of anticoagulants; Y73.8 Miscellaneous gastroenterology and urology devices associated with adverse incidents, not elsewhere classified; Y92.89 Other specified places as the place of occurrence of the external cause
CPT/HCPCS: 36415; 71046; 80048; 81001; 82306; 85025; 87040; 87077; 87086; 87088; 87184; 87186; 87633; 87811; 92507; 92523; 92526; 97110; 97129; 97130; 97162; 97166; 97530; 97535; 97537; 97802; J2185; A4216

== ENCOUNTER 2024-03-23 12:57 | Inpatient (IN) | payer MEDICARE, OTHER, SELFPAY ==
[2024-03-23] VITALS (10 sets, daily range): BP systolic 115–135; BP diastolic 57–78; PULSE 63–77; RESP 15–22; TEMP 36.8–37.1; O2SAT 95–98; BMI 34.9; BMI 35.2
--- NOTE | 2024-03-23 13:17 | EKG12_ITS ---
Test Reason : WEAKNESS Blood Pressure : */* mmHG Vent. Rate : 75 BPM Atrial Rate : 75 BPM P-R Int : 198 ms QRS Dur : 86 ms QT Int : 400 ms P-R-T Axes : 55 28 44 degrees QTcB Int : 446 ms Normal sinus rhythm Normal ECG Confirmed by Ahmet Casas ([id number]), photographic editor HARJIT MARIN ([id number]) on 03/24/2024 9:35:46 AM Referred By: Confirmed By: Ahmet Casas
--- NOTE | 2024-03-23 13:18 | EDS_ITS ---
HPI History of Present Illness Chief Complaint: Abn Labs Narrative Narrative: 78-year-old male presents with his from the TCU with fever and positive blood cultures. They state that he has had an indwelling Mejía catheter and was diagnosed with a UTI. Additionally, he recently had pneumonia as well. Yesterday evening it was noted that he had a fever and started feeling shaky. I discussed patient with Dr. Gallardo, who states that patient has a UTI and pneumonia. They did a chest x-ray yesterday evening and COVID swab was negative. He performed blood cultures and started the patient on meropenem secondary to multiple allergies. Patient continued to have a fever today, and his blood cultures are growing out gram-negative rods in 2 bottles. He was sent to the emergency department for readmission. 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 Depression Hypertension Atrial fibrillation Anterior communicating artery aneurysm Atrial fibrillation History of DVT (deep vein thrombosis) AAA (abdominal aortic aneurysm) without rupture Sick sinus syndrome Family history of hypertension History of spinal cord injury Paraplegia Premature ventricular contractions BPH (benign prostatic hypertrophy) Depression Cervical spinal stenosis Spinal cord injury Neurogenic bladder Degenerative joint disease (DJD) of lumbar spine Anemia Central cord syndrome Subluxation of C6-C7 cervical vertebrae 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.9) Home Medications ?Medication ?Instructions ?Recorded ?Last Taken ?Type ascorbic acid (vitamin C) 500 mg 1,000 mg PO LUNCH supplement 08/17/21 02/11/24 History tablet tamsulosin 0.4 mg capsule 0.4 mg PO QHS Urine retention 30 09/03/21 02/27/24 21:10 Rx days #30 caps 0.4 mg citalopram 20 mg tablet 20 mg PO QHS depression 12/04/21 02/27/24 21:10 History 20 mg carvedilol 12.5 mg tablet 12.5 mg PO BID BP 02/12/24 02/28/24 08:20 History 12.5 mg cholecalciferol (vitamin D3) 25 25 mcg PO DAILY supplement 02/12/24 Unknown History mcg (1,000 unit) capsule vitamin E 180 mg PO DAILY supplement 02/12/24 02/11/24 History docusate sodium 283 mg/5 mL enema 283 mg AR BID constipation 02/13/24 02/27/24 17:00 History (Enemeez) 283 mg potassium chloride 10 mEq 20 meq (2 x 10 mEq) PO DAILYCM 02/17/24 Unknown Rx tablet,extended release(part/cryst) hypokalemia #60 tabs gabapentin 600 mg tablet 600 mg PO BID nerve pain 02/21/24 02/28/24 09:45 History 600 mg methenamine hippurate 1 gram tablet 1 g PO BID urinary 30 days #60 tabs 02/28/24 Unknown Rx apixaban 5 mg tablet (Eliquis) 5 mg PO BID blood thinner #180 tabs 03/14/24 Unknown Rx Allergy/AdvReac Type Severity Reaction Status Date / Time ceftriaxone Allergy Rash Verified 03/23/24 13:06 ciprofloxacin (From Cipro) Allergy Hives Verified 03/23/24 13:06 sulfamethoxazole (From Allergy PT UNSURE Verified 03/23/24 13:06 Bactrim) OF REACTION trimethoprim (From Bactrim) Allergy PT UNSURE Verified 03/23/24 13:06 OF REACTION Family History Mother Breast cancer Cancer Brain cancer Sister Diabetes Hypertension CHF (congestive heart failure) Kidney disease Sister CHF (congestive heart failure) Cardiac defibrillator in situ Other Family history of hypertension Surgical History History of neck surgery History of permanent cardiac pacemaker placement S/P cervical spinal fusion Social History household members: spouse Smoking Status: Never smoker alcohol intake: current alcohol intake frequency: holidays/special occasions only Alcohol type: wine substance use type: does not use caffeine: Yes Type: coffee Number of servings: 1 what type of physical activity do you participate in: other details: Health point frequency: 1-2 times per week duration: 45-60 minutes/day seatbelt use: always do you feel safe at home: Yes ROS ROS ED ROS Narrative Review of systems positive for fever, shakiness. No recent nausea or vomiting, no diarrhea. EXAM Physical Exam Narrative Exam Narrative: Afebrile. Vital signs noted. Nontoxic-appearing. Cardiovascular examination reveals a regular rate and rhythm. Mild tachypnea on examination. Lungs clear to auscultation bilaterally anteriorly. Abdomen soft and nontender. Positive indwelling Mejía catheter draining dark urine. Neurological examination at baseline, awake, and alert. Mild speech impediment/expressive aphasia. Const Vital Signs: 03/23/24 12:59 03/23/24 13:02 03/23/24 13:03 Temperature 98.8 F 98.8 F Temperature Source Oral Oral Pulse Rate 77 77 Respiratory Rate 20 H 20 H Respiratory Effort Normal Non-Labored Respiratory Pattern Normal Blood Pressure 135/57 H 135/57 H Blood Pressure Mean 83 83 Pulse Ox 96 97 Oxygen Delivery Method Room Air 03/23/24 14:03 Temperature Temperature Source Pulse Rate Respiratory Rate Respiratory Effort Respiratory Pattern Blood Pressure Blood Pressure Mean Pulse Ox 98 Oxygen Delivery Method Room Air MDM MDM MDM Narrative Medical decision making narrative: Differential diagnosis does include sepsis from UTI versus pneumonia. Patient reported he has positive blood cultures. I reviewed his chest x-ray and laboratory work. I reviewed the chest x-ray from yesterday and the radiology report comments on possible left lower lobe infiltrate with effusion. I reviewed the blood cultures and they are positive for gram-negative rods. Patient will also be started on imipenem after discussion with Dr. Navarro as she reviewed the most recent cultures and he was shown to have indeterminant resistance to meropenem. EKG obtained interpreted by myself independently as normal sinus rhythm at 75 bpm without ectopy or acute ST changes. No STEMI. What has returned thus far is CBC which shows normal white count of 9.8 with hemoglobin 10.4, platelet count normal at 165. Lactic acid is elevated 2.6. He was bolused normal saline 1 L intravenously. CMP shows chloride elevated at 108 which I think is nonspecific. AST low at 13. Normal ALT of 17. BUN of 25 with creatinine normal at 1.2. Sepsis workup was pursued with results pending, but given his bacteremia, patient discussed with Dr. Navarro the hospitalist for admission to [facility]. He is in stable condition. Of note, I did speak with the pharmacist after ordering imipenem. He states that that is unavailable at this facility. Instead, he recommended gentamicin given the patient's allergies. In review of his last urine culture prior to yesterday's, it was sensitive to tobramycin. Disposition remains admitted in stable condition. History & Record Review Discussion w/independent historian: Patient and Family Lab Data Attestation: I reviewed the patient's lab results. Labs: Laboratory Results - last 24 hr 03/23/24 13:23 WBC 9.8 RBC 3.77 L Hgb 10.4 L Hct 33.0 L MCV 87.5 MCH 27.6 MCHC 31.5 L RDW Std Deviation 50.0 H RDW Coeff of Donna 15.7 H Plt Count 165 MPV 9.6 Immature Gran % (Auto) 0.200 Neut % (Auto) 90.3 H Lymph % (Auto) 3.0 L [place] % (Auto) 6.1 Eos % (Auto) 0.1 Baso % (Auto) 0.3 Absolute Neuts (auto) 8.9 H Absolute Lymphs (auto) 0.29 L Nucleated RBC % 0 Sodium 137 Potassium 4.2 Chloride 108 H Carbon Dioxide 23.0 Anion Gap 6 BUN 25 H Creatinine 1.20 Estim Creat Clear Calc 62.20 Est GFR (MDRD) Af Amer 75 Est GFR (MDRD) Non-Af 62 BUN/Creatinine Ratio 20.8 H Glucose 163 H Lactic Acid 2.6 H* Calcium 8.7 Phosphorus 2.2 L Magnesium 2.5 Total Bilirubin 0.80 AST 13 L ALT 17 Alkaline Phosphatase 60 Total Protein 7.2 Albumin 2.9 L Globulin 4.3 H Albumin/Globulin Ratio 0.7 L Management Discussion w/another healthcare provider: Hospitalist, Pharmacist and PCP (Dr. Gallardo, from [facility] gave report.) Discharge Plan Dx/Rx/DC Orders Clinical Impression: Pneumonia, Complicated urinary tract infection, Positive blood cultures, Bacteremia, Lactic acidosis Disposition Disposition: Acute Care Hospital [facility]
[2024-03-23 13:35] LABS: Absolute Lymphocyte Count 0.29 X10^3/uL (0.83-4.51); Absolute Neutrophil Count 8.9 X10^3/uL (2.0-7.7); Basophil# 0.03 X10^3/uL; Basophil% 0.3 % (0-1); Eosinophil# 0.01 X10^3/uL; Eosinophils% 0.1 % (0-5); Hemoglobin 10.4 g/dL (13.0-16.5); Lymphocyte # 0.29 X10^3/ul (0.83-4.51); Mean Corp Hgb Conc 31.5 g/dL (32-36); Mean Corpuscular Hgb 27.6 pg (27.0-32.0); Mean Corpuscular Volume 87.5 fL (80-94); Mean Platelet Vol. 9.6 fl (6.2-12.0); Monocyte% 6.1 % (0-10); NRBC Flagged by Analyzer 0 % (0-5); Neutrophil # 8.85 X10^3/uL (2.7-7.7); Neutrophil % 90.3 % (47-70); POSITIVE DIFFERENTIAL YES; Platelet Count 165 K/mm3 (150-450); RBC Distribution Width CV 15.7 % (11.6-14.6); Red Blood Count 3.77 M/mm3 (4.6-6.2); White Blood Count 9.8 K/mm3 (4.4-11.0)
--- NOTE | 2024-03-23 13:35 | HP.PCM.HOS_ITS ---
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, decreased sensation, neurogenic bladder w/ self catheterization following fall while at home however during recent previous admission and TCU stay has Starr catheter in place, Hx CVA w/ chronic memory impairment, PAF, BPH with obstructive pathology with self- catheterization at home, Hx Sick sinus syndrome s/p pacemaker placement, Hx VTE, HTN, HLD, Known anterior communicating artery aneurysm, AAA, Anxiety and Depression, Chronic anemia, recent discharge 02/28/24 following evaluation and treatment of Pseudomonas fluorescence UTI treated with short course of IV meropenem given colony-forming units only 50-80,000 per ID direction discharged to TCU for ongoing therapies with most recent ID follow-up 03/06/2024 with note mentioning initiation of suppressive methenamine, repeat urine culture with Pseudomonas, UA with increased WBC however no fever with catheter in place with recommendation continue to monitor off antibiotic therapy however noted that if worsened would recommend antibiotic initiation) micro susceptible to Levaquin, imipenem, ciprofloxacin, cefepime but resistant to Zosyn and insensitive to meropenem specifically and now re-presents to the [facility] ED on 03/23/2024 with 03/22/2024 urine culture with greater than 100,000 gram-negative rods with 03/22/2024 prelim blood culture with also gram-negative rods prompting transition to the ED for further evaluation and treatment. In TCU patient with now also onset of fever noted to be up to 100.6 temporally. Recent evaluations in TCU included 03/22/2024 respiratory viral panel negative, SARS COVID rapid antigen negative, 03/22/2024 chest x-ray with cardiomegaly and/or pericardial effusion, left basilar pulmonary opacity possibly atelectasis versus pneumonia or possible left pleural effusion and when compared to 02/21/2024 patient at that time with left basilar mild opacity. Workup in the ED included T1 100.3 temporally, heart rate 77, BP 157/74, respiratory rate 20, 95% room air with most recent repeat vitals T98.8, heart rate 77, BP 135/57, respiratory rate 20, 97% room air, 03/22/2024 TCU labs with CBC with WBC 12.0, hemoglobin 1.3, MCV 85.9, platelet 187 with left shift and lymphopenia, BMP with BUN/creatinine 25/1.06, GFR 72, glucose 118. In the ED discussed case with physician and recommended administration of potentially cefepime or imipenem given sensitivity recently from 03/03/24 urine cultures. [facility] Medical History Non-smoker Fever Dehydration Acute hypokalemia Transient hypotension Syncope Vision loss of right eye Neurogenic bladder Acute UTI Anxiety Prostatic hypertrophy TIA (transient ischemic attack) Neurogenic bowel Sick sinus syndrome Neuropathy 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 Depression Hypertension Atrial fibrillation Anterior communicating artery aneurysm Atrial fibrillation History of DVT (deep vein thrombosis) AAA (abdominal aortic aneurysm) without rupture Sick sinus syndrome Family history of hypertension History of spinal cord injury Paraplegia Premature ventricular contractions BPH (benign prostatic hypertrophy) Depression Cervical spinal stenosis Spinal cord injury Neurogenic bladder Degenerative joint disease (DJD) of lumbar spine Anemia Central cord syndrome Subluxation of C6-C7 cervical vertebrae 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.9) Home Medications ?Medication ?Instructions ?Recorded ?Last Taken ?Type ascorbic acid (vitamin C) 500 mg 1,000 mg PO LUNCH supplement 08/17/21 02/11/24 History tablet tamsulosin 0.4 mg capsule 0.4 mg PO QHS Urine retention 30 09/03/21 02/27/24 21:10 Rx days #30 caps 0.4 mg citalopram 20 mg tablet 20 mg PO QHS depression 12/04/21 02/27/24 21:10 History 20 mg carvedilol 12.5 mg tablet 12.5 mg PO BID BP 02/12/24 02/28/24 08:20 History 12.5 mg cholecalciferol (vitamin D3) 25 25 mcg PO DAILY supplement 02/12/24 Unknown History mcg (1,000 unit) capsule vitamin E 180 mg PO DAILY supplement 02/12/24 02/11/24 History docusate sodium 283 mg/5 mL enema 283 mg CA BID constipation 02/13/24 02/27/24 17:00 History (Enemeez) 283 mg potassium chloride 10 mEq 20 meq (2 x 10 mEq) PO DAILYCM 02/17/24 Unknown Rx tablet,extended release(part/cryst) hypokalemia #60 tabs gabapentin 600 mg tablet 600 mg PO BID nerve pain 02/21/24 02/28/24 09:45 History 600 mg methenamine hippurate 1 gram tablet 1 g PO BID urinary 30 days #60 tabs 02/28/24 Unknown Rx apixaban 5 mg tablet (Eliquis) 5 mg PO BID blood thinner #180 tabs 03/14/24 Unknown Rx Allergy/AdvReac Type Severity Reaction Status Date / Time ceftriaxone Allergy Rash Verified 03/23/24 13:06 ciprofloxacin (From Cipro) Allergy Hives Verified 03/23/24 13:06 sulfamethoxazole (From Allergy PT UNSURE Verified 03/23/24 13:06 Bactrim) OF REACTION trimethoprim (From Bactrim) Allergy PT UNSURE Verified 03/23/24 13:06 OF REACTION Family History Mother Breast cancer Cancer Brain cancer Sister Diabetes Hypertension CHF (congestive heart failure) Kidney disease Sister CHF (congestive heart failure) Cardiac defibrillator in situ Other Family history of hypertension Surgical History History of neck surgery History of permanent cardiac pacemaker placement S/P cervical spinal fusion Social History household members: spouse Smoking Status: Never smoker alcohol intake: current alcohol intake frequency: holidays/special occasions only Alcohol type: wine substance use type: does not use caffeine: Yes Type: coffee Number of servings: 1 what type of physical activity do you participate in: other details: Health point frequency: 1-2 times per week duration: 45-60 minutes/day seatbelt use: always do you feel safe at home: Yes ROS ROS Narrative Admission Review of Systems: CONSTITUTIONAL: No weight loss, + fever, chills, weakness or fatigue. HEENT: + Chronic right eye vision loss. Eyes: No blurred vision, double vision or yellow sclerae. Ears, Nose, Throat: No hearing loss, sneezing, congestion, runny nose or sore throat. SKIN: No rash or itching, lesions, wounds. CARDIOVASCULAR: No chest pain, chest pressure or chest discomfort, palpitations, edema, orthopnea, syncopal events. RESPIRATORY: No shortness of breath, cough or sputum, wheezing, hemoptysis. GASTROINTESTINAL: + anorexia, nausea. No vomiting or diarrhea, abdominal pain, melena, BRBPR. GENITOURINARY: + Chronic starr in place w/ chronic retention w/ neurogenic bladder, recent + UCx at TCU. NEUROLOGICAL: + Encephalopathy, History trauma with spinal cord injury with incomplete quadriplegia, sensation decreased, neurogenic bladder. No headache, dizziness, syncope, change in bowel or bladder control, seizure. MUSCULOSKELETAL: + muscle, back pain, joint pain or stiffness. HEMATOLOGIC: + Chronic anemia, easy bleeding/bruising. LYMPHATICS: No enlarged nodes. No history of splenectomy. PSYCHIATRIC: + History of anxiety and depression. ENDOCRINOLOGIC: No reports of sweating, cold or heat intolerance. No polyuria or polydipsia. ALLERGIES: + History of hives. Vital Signs Vital Signs Vital Signs: 03/23/24 12:59 03/23/24 13:02 03/23/24 13:03 Temperature 98.8 F 98.8 F Temperature Source Oral Oral Pulse Rate 77 77 Respiratory Rate 20 H 20 H Respiratory Effort Normal Non-Labored Respiratory Pattern Normal Blood Pressure 135/57 H 135/57 H Blood Pressure Mean 83 83 Pulse Ox 96 97 Oxygen Delivery Method Room Air Weight Weight: 236 lb 5.369 oz Body Mass Index (BMI) 34.9 Physical Exam Narrative Physical Examination: General: Awake, alert, oriented to self, place and recent events, underlying chronic memory impairment from previous stroke, notes he has been more confused recently and similar report from TCU, currently remains cooperative, seated upright in the ED bed, fatigued. Skin: Normal color, normal turgor, no icterus, no cyanosis except occasional stage ecchymoses, abrasion. HEENT: AT/NC, EOM left eye intact, chronic right eye vision loss, L BEN, dry MM, no carotid bruits or JVD noted. Lungs: Mildly diminished, greater bases, appropriate effort, no rales, ronchi or wheezing. Heart: Regular rate and rhythm; no gallop, rub audible. Abdomen: Soft, obese, NTTP, ND, distant normal BS, unable to appreciate HSM, starr catheter in place. Extremities: No cyanosis, no clubbing, pedal to mid flor not markedly pitting chronic edema. Neurological: Patient awake, alert, oriented as noted, cognitive function currently seems more near baseline intact with chronic memory impairment and does report he seems better since transition to the ICU, left pupil reactive to light and accommodation, cranial nerves grossly intact aside from vision deficits to the right, patient does have incomplete quadriplegia, decreased sensation baseline, strength severely globally decreased. Psychiatric: Affect appears fatigued, no acute evidence of depressive or anxiety feelings but does have underlying history. Results Lab / Micro Data 03/23/24 13:23 03/23/24 13:23 Assessment & Plan Assessment/Plan (1) Complicated urinary tract infection: (2) Positive blood cultures: PLAN: Plan The patient is a 78 y/o M w/ PMHx: CKD stage II per GFR trending, Hx trauma w/ spinal cord injury w/ incomplete quadriplegia, decreased sensation, neurogenic bladder w/ self catheterization following fall while at home however during recent previous admission and TCU stay has Starr catheter in place, Hx CVA w/ chronic memory impairment, PAF, BPH with obstructive pathology with self- catheterization at home, Hx Sick sinus syndrome s/p pacemaker placement, Hx VTE, HTN, HLD, Known anterior communicating artery aneurysm, AAA, Anxiety and Depression, Chronic anemia, recent discharge 02/28/24 following evaluation and treatment of Pseudomonas fluorescence UTI treated with short course of IV meropenem given colony-forming units only 50-80,000 per ID direction discharged to TCU for ongoing therapies with most recent ID follow-up 03/06/2024 with note mentioning initiation of suppressive methenamine, repeat urine culture with Pseudomonas, UA with increased WBC however no fever with catheter in place with recommendation continue to monitor off antibiotic therapy however noted that if worsened would recommend antibiotic initiation) micro susceptible to Levaquin, imipenem, ciprofloxacin, cefepime but resistant to Zosyn and insensitive to meropenem specifically and now re-presents to the [facility] ED on 03/23/2024 with 03/22/2024 urine culture with greater than 100,000 gram-negative rods with 03/22/2024 prelim blood culture with also gram-negative rods prompting transition to the ED for further evaluation and treatment. #1. Acute Encephalopathy secondary to Acute GNR Bacteremia secondary to Acute Complicated GNR Urinary Tract Infection, speciation pending: Will admit to [facility] given stable vital signs, pending UCX from 03/22/2024 however previous to this most recent urine culture 03/03/2024 with 80-100,000 Pseudomonas aeruginosa's susceptible to amikacin, cefepime, ciprofloxacin, imipenem, Levaquin and tobramycin but in sensitive to meropenem and resistant to Zosyn, will judiciously hydrate as needed, monitor I/Os, continue IV cefepime w/ transition as able pending sensitivities and speciation. Will request re-involvement of infectious disease. Awaiting final speciation and sensitivities of current cultures. Bld cx x 2 obtained as noted with prelim positive gram-negative rods. Will plan to repeat blood cultures following at least 24 hours initiation of blood cultures or at ID discretion. PT/OT/case management consulted for discharge planning. #2. Questionable left basilar pneumonia, possible gram-negative/gram-positive organism given prolonged recent hospitalization; however was also noted on film previous to this 02/21/2024 thus unclear if truly pneumonia: Patient is currently not hypoxic, still uncertain if truly pneumonia, will maintain on PRN albuterol, maintain IV cefepime and request MRSA screen with addition of vancomycin if positive, HOB, IS parameters w/ pending sputum cultures and urine antigens. Recent TCU full respiratory viral panel negative. Bld cx x 2 obtained as noted with preliminary positive for gram-negative rods. #3. Hx trauma w/ spinal cord injury w/ incomplete quadriplegia, decreased sensation, neurogenic bladder w/ self catheterization following fall: Will maintain on fall and aspiration precautions, will continue patient home gabapentin regimen, will continue Flomax, given current presentation will request Starr catheter change, PT/OT/case management consulted for discharge planning. #4. Hx CVA w/ chronic memory impairment: We will continue patient home apixaban, hypertensive regimen, not on statin therapy. #5. 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 #6. AAA: Noted history, unclear exact location, recent MRI of the abdomen with no reported aneurysm, no recent CTA abdomen and pelvis but no noted findings on CT abdomen and pelvis. #7. PAF: We will continue patient home Coreg and apixaban home regimen. #8. Hypertension: Continue home regimen including lisinopril, Coreg, PRN hydralazine. #9. Hyperlipidemia: Per current list does not appear to be on any regimen, no allergy listed, defer to outpatient. #10. Chronic normocytic anemia: Admission hemoglobin per recent TCU labs with hemoglobin 11.3, MCV 85.9, baseline hemoglobin similar range, will continue to trend CBC. #11. Anxiety and depression: We will continue patient home citalopram regimen. #12. History sick sinus syndrome: Status post pacemaker placement, encourage continued outpatient evaluation and interrogation as previously arranged. #13. History of VTE: Patient with documented history of DVT, will continue patient home Eliquis regimen. #14. BPH with obstructive pathology: Complicates presentation as noted above, during recent presentation Starr catheter had been placed, given current infectious presentation with recurrent UTI will replace Starr catheter, we will continue patient home Flomax regimen. #15. Chronic Kidney Disease Stage II per GFR trending: Admission BUN/Cr 25/1.20, GFR 75, baseline renal function 0.8-1.2, repeat BMP in AM. #16. DVT prophylaxis: Will continue patient home Eliquis regimen. #17. CODE status: Patient YANELI is his who is present, unclear if living will is in place. Previously discussed during prior admission CODE STATUS and different types of statuses and at that time they had requested DNR CCA, no intubation and no aggressive measures however this time following lengthy similar conversations preference to remain full code at this time. She does note that they had changed it upon transition to TCU as well. Advanced Care Planning Face to Face Time: 16 minutes. Charges/Coding Visit Charges Inpatient E&M: 34664 Init Hosp L3 Procedures Hospitalists Procedures: 79556 Advncd Care Plan 30 Min
[2024-03-23 13:54] LABS: ALB/GLOB Ratio 0.7 RATIO (0.9-2.4); AST(SGOT) 13 U/L (15-37); Alanine Aminotransfer ALT/SGPT 17 U/L (16-61); Albumin, Serum 2.9 g/dL (3.2-5.0); Alkaline Phosphatase 60 U/L (45-117); Anion Gap 6 (5-15); BUN 25 mg/dL (7-18); BUN/Creat Ratio 20.8 RATIO (10-20); Calcium,Total 8.7 mg/dL (8.5-10.1); Chloride 108 mmol/L (98-107); EST Glomerular Filtration Rate 62 mL/min (>60); Est Glom Filt Rate - Afr Amer 75 mL/min (>60); Globulin 4.3 g/dL (2.2-4.2); Glucose 163 mg/dL (74-106); Potassium 4.2 mmol/L (3.5-5.1); Protein, Total 7.2 g/dL (6.4-8.2); Sodium Level 137 mmol/L (136-145)
[2024-03-23] MEDS: WATER IVPB ×2 (13:59→16:19)
[2024-03-23] MEDS: GENTAMICIN IVPB ×2 (13:59→16:19)
[2024-03-23] MEDS: DEXTROSE 5% IVPB ×2 (13:59→16:19)
[2024-03-23 14:06] LABS: Lactic Acid 2.6 mmol/L (0.4-1.9)
[2024-03-23 14:08] LABS: Magnesium 2.5 mg/dL (1.6-2.6); Phosphorus 2.2 mg/dL (2.5-4.9)
[2024-03-23] MEDS: 0.9% Normal Saline (1000mL) 1,000 ML 999 ML IV (15:04)
[2024-03-23] MEDS: Sodium Phosphate/Na Biphos 21 MMOL in 0.9% Normal Saline (250mL Bag) 250 ML 84 MMOL IV (16:00)
[2024-03-23] MEDS: 0.9% Normal Saline (1000mL) 1,000 ML 100 ML IV (16:18)
[2024-03-23 17:01] LABS: Squamous Epithelial Cells - UA 0 SEEN /hpf (0-5)
--- NOTE | 2024-03-23 17:02 | PCM.RX.CS ---
Consult Antibiotic Management Pharmacy has been consulted to manage selected antibiotic: Gentamicin Type of Intervention Type of Consult: New start Suspected Infection Suspected Infection: Other (UTI) Prior Doses of Antibiotics Prior Doses of Antibiotics Received/Current Regimen: Gentamicin 360 mg IV x 1 given 03/23 @ 1359, gentamicin 70 mg x 1 given 03/23 @ 1619, total daily dose will be 430 mg. Labs Labs: Sodium 137 mmol/L (136-145) 03/23/24 13:23 Potassium 4.2 mmol/L (3.5-5.1) 03/23/24 13:23 Chloride 108 mmol/L (98-107) H 03/23/24 13:23 Carbon Dioxide 23.0 mmol/L (21.0-32.0) 03/23/24 13:23 Anion Gap 6 (5-15) 03/23/24 13:23 BUN 25 mg/dL (7-18) H 03/23/24 13:23 Creatinine 1.20 mg/dL (0.70-1.30) 03/23/24 13:23 Est GFR (MDRD) Af Amer 75 mL/min (>60) 03/23/24 13:23 Est GFR (MDRD) Non-Af 62 mL/min (>60) 03/23/24 13:23 BUN/Creatinine Ratio 20.8 RATIO (10-20) H 03/23/24 13:23 Glucose 163 mg/dL (74-106) H 03/23/24 13:23 Dosing Weight Weight used for dosin kg Estimated Creatinine Clearance Estimated Creatinine Clearance: ~ 62 Pharmacy Plan for Drug Dosing Pharmacy Plan for Drug Dosing: Gentamicin 430 mg daily, random level in 10 hours, subsequent dosing based on results of random level. Pharmacy Service will continue to monitor and adjust dosing as required. Follow-Up Labs Follow-Up Labs: Trough: Gentamicin Date/Time Labs Ordered Labs to be done on [date and time ordered]: 03/24/24 @ 0100
[2024-03-23 17:04] LABS: Color, Urine Yellow (Yellow); Glucose, Dipstick Normal (Normal); Ketone-Dipstick Negative (Negative); Leukocyte Esterase-Dipstick 500 /ul (Negative); Nitrite-Dipstick Positive (Negative); Occult Blood-Urine 150 /ul (Negative); Protein-Dipstick 30 mg/dl (Negative); Urine Bilirubin Dipstick Negative (Negative); Urine Clarity Cloudy (Clear); Urine Urobilinogen Normal (Normal); Urine pH 6.5 (5.0 - 8.0)
[2024-03-23 17:18] LABS: White Blood Cells 50-100 SEEN /hpf (0-5)
[2024-03-23 17:19] LABS: Bacteria 1+ /hpf (None Seen); Mucous, Urine 1+ /hpf (<or=2+); Red Blood Cells-Urine 0-5 SEEN /hpf (0-5); White Cell Cast 0-5 SEEN /lpf (None Seen)
[2024-03-23 17:28] LABS: Reflex Lactate? Y
[2024-03-23] MEDS: Menthol/Lanolin/Calamine/Znox 113 GM Tube 1 APPLIC TOPICAL ×2 (19:01→20:42)
[2024-03-23] MEDS: Carvedilol 12.5 MG Tablet PO (20:41)
[2024-03-23] MEDS: Citalopram 20 MG Tablet PO (20:41)
[2024-03-23] MEDS: APIXABAN 5 MG TABLET PO (20:41)
[2024-03-23] MEDS: Methenamine Hippurate 1 GM Tablet PO (20:41)
[2024-03-23] MEDS: Tamsulosin HCl 0.4 MG Capsule PO (20:42)
[2024-03-23] MEDS: Gabapentin 600 MG Tablet PO (20:49)
[2024-03-24] VITALS (7 sets, daily range): BP systolic 124–139; BP diastolic 61–71; PULSE 63–67; RESP 16–18; TEMP 36.8–37.3; O2SAT 97–99; BMI 35.2
[2024-03-24 02:14] LABS: Gentamicin, Random 3.2 ug/mL
--- NOTE | 2024-03-24 02:55 | PCM.RX.CS ---
Consult Antibiotic Management Pharmacy has been consulted to manage selected antibiotic: Gentamicin Type of Intervention Type of Consult: Follow-up Labs Labs: Sodium 137 mmol/L (136-145) 03/23/24 13:23 Potassium 4.2 mmol/L (3.5-5.1) 03/23/24 13:23 Chloride 108 mmol/L (98-107) H 03/23/24 13:23 Carbon Dioxide 23.0 mmol/L (21.0-32.0) 03/23/24 13:23 Anion Gap 6 (5-15) 03/23/24 13:23 BUN 25 mg/dL (7-18) H 03/23/24 13:23 Creatinine 1.20 mg/dL (0.70-1.30) 03/23/24 13:23 Est GFR (MDRD) Af Amer 75 mL/min (>60) 03/23/24 13:23 Est GFR (MDRD) Non-Af 62 mL/min (>60) 03/23/24 13:23 BUN/Creatinine Ratio 20.8 RATIO (10-20) H 03/23/24 13:23 Glucose 163 mg/dL (74-106) H 03/23/24 13:23 Random Gentamicin 3.2 ug/mL 03/24/24 01:40 Microbiology Microbiology: Microbiology 03/23/24 16:50 Urine Catheter - Catheter Legionella Antigen - Final 03/23/24 16:50 Urine Catheter - Catheter Streptococcus pneumoniae Antigen (M - Final Pharmacy Plan for Drug Dosing Pharmacy Plan for Drug Dosing: Pharmacy Service will continue to monitor and adjust dosing as required. LEVEL AT 10 HOURS IS 3.2. IN RANGE FOR CONTINUING 430MG Q24H DOSE. CONTINUE AND DRAW LEVEL 10 HOURS AFTER DOSE ON 03/28 (03/29 @ 0200) Follow-Up Labs Follow-Up Labs: Trough: Gentamicin Date/Time Labs Ordered Labs to be done on [date and time ordered]: 03/29 @ 0200
[2024-03-24 06:46] LABS: Absolute Lymphocyte Count 0.84 X10^3/uL (0.83-4.51); Absolute Neutrophil Count 4.8 X10^3/uL (2.0-7.7); Basophil# 0.02 X10^3/uL; Basophil% 0.3 % (0-1); Eosinophil# 0.09 X10^3/uL; Eosinophils% 1.4 % (0-5); Hematocrit 28.8 % (40-54); Hemoglobin 9.4 g/dL (13.0-16.5); Lymphocyte # 0.84 X10^3/ul (0.83-4.51); Mean Corp Hgb Conc 32.6 g/dL (32-36); Mean Corpuscular Hgb 28.5 pg (27.0-32.0); Mean Corpuscular Volume 87.3 fL (80-94); Mean Platelet Vol. 9.8 fl (6.2-12.0); Monocyte# 0.69 X10^3/uL; Monocyte% 10.7 % (0-10); NRBC Flagged by Analyzer 0 % (0-5); Neutrophil % 74.1 % (47-70); Platelet Count 137 K/mm3 (150-450); RBC Distribution Width CV 15.8 % (11.6-14.6); RBC Distribution Width SD 50.2 fl (35.1-43.9); White Blood Count 6.5 K/mm3 (4.4-11.0)
[2024-03-24 07:09] LABS: Phosphorus 2.8 mg/dL (2.5-4.9)
[2024-03-24 07:15] LABS: ALB/GLOB Ratio 0.7 RATIO (0.9-2.4); AST(SGOT) 13 U/L (15-37); Alanine Aminotransfer ALT/SGPT 14 U/L (16-61); Albumin, Serum 2.6 g/dL (3.2-5.0); Alkaline Phosphatase 51 U/L (45-117); Anion Gap 5 (5-15); BUN 19 mg/dL (7-18); BUN/Creat Ratio 21.7 RATIO (10-20); Chloride 111 mmol/L (98-107); Creatinine, Serum 0.87 mg/dL (0.70-1.30); EST Glomerular Filtration Rate 90 mL/min (>60); Est Glom Filt Rate - Afr Amer 109 mL/min (>60); Estimated Creatinine Clearance 86.11 ml/min; Globulin 3.9 g/dL (2.2-4.2); Glucose 95 mg/dL (74-106); Potassium 3.6 mmol/L (3.5-5.1); Protein, Total 6.5 g/dL (6.4-8.2); Sodium Level 138 mmol/L (136-145)
--- NOTE | 2024-03-24 07:35 | PCM.PN.HOSP ---
Reason for Visit Reason for Visit: Diagnoses Urinary tract infection, site not specified (03/23/24) Bacteremia (03/23/24) Subjective Subjective Patient is a 78-year-old gentleman with history of spinal cord injury with quadriparesis, neurogenic bladder with intermittent self-catheterization who was sent from the transitional care unit to the ED with abnormal urinalysis Objective Data Objective Data Vital Signs: Vital Signs Temp Pulse Resp BP Pulse Ox O2 Del Method 99.2 F H 66 16 126/61 H 97 Room Air 03/24/24 03:00 03/24/24 03:00 03/24/24 03:00 03/24/24 03:00 03/24/24 03:00 03/24/24 03:00 Oxygen Delivery Method Room Air Weight: 108 kg Body Mass Index (BMI) 35.2 Intake & Output: Intake and Output for Last 24 Hours 03/22/24 03/23/24 03/24/24 23:59 23:59 23:59 Intake Total 1901.08 / 2001.08 1266.67 / 1266.67 Output Total 1250 / 1250 500 / 500 Balance 651.08 / 751.08 766.67 / 766.67 Lab / Micro Data 03/24/24 06:31 03/24/24 06:31 Labs: Laboratory Results - last 24 hr 03/23/24 13:23: WBC 9.8, RBC 3.77 L, Hgb 10.4 L, Hct 33.0 L, MCV 87.5, MCH 27.6, MCHC 31.5 L, RDW Std Deviation 50.0 H, RDW Coeff of Donna 15.7 H, Plt Count 165, MPV 9.6, Immature Gran % (Auto) 0.200, Neut % (Auto) 90.3 H, Lymph % (Auto) 3.0 L, [place] % (Auto) 6.1, Eos % (Auto) 0.1, Baso % (Auto) 0.3, Absolute Neuts (auto) 8.9 H, Absolute Lymphs (auto) 0.29 L, Nucleated RBC % 0, Sodium 137, Potassium 4.2, Chloride 108 H, Carbon Dioxide 23.0, Anion Gap 6, BUN 25 H, Creatinine 1.20, Estim Creat Clear Calc 62.20, Est GFR (MDRD) Af Amer 75, Est GFR (MDRD) Non-Af 62, BUN/Creatinine Ratio 20.8 H, Glucose 163 H, Lactic Acid 2.6 H*, Calcium 8.7, Phosphorus 2.2 L, Magnesium 2.5, Total Bilirubin 0.80, AST 13 L, ALT 17, Alkaline Phosphatase 60, Total Protein 7.2, Albumin 2.9 L, Globulin 4.3 H, Albumin/Globulin Ratio 0.7 L 03/23/24 16:50: Urine Color Yellow, Urine Clarity Cloudy, Urine pH 6.5, Ur Specific [place] 1.010, Urine Protein 30 H, Urine Glucose (UA) Normal, Urine Ketones Negative, Urine Occult Blood 150 H, Urine Nitrite Positive H, Urine Bilirubin Negative, Urine Urobilinogen Normal, Ur Leukocyte Esterase 500 H, Urine RBC 0-5 SEEN, Urine WBC 50-100 SEEN, Ur Squamous Epith Cells 0 SEEN, Urine Bacteria 1+, WBC Casts 0-5 SEEN, Urine Mucus 1+ 03/23/24 17:48: Lactic Acid 2.0 03/24/24 01:40: Random Gentamicin 3.2 03/24/24 06:31: WBC 6.5, RBC 3.30 L, Hgb 9.4 L, Hct 28.8 L, MCV 87.3, MCH 28.5, MCHC 32.6, RDW Std Deviation 50.2 H, RDW Coeff of Donna 15.8 H, Plt Count 137 L, MPV 9.8, Immature Gran % (Auto) 0.500, Neut % (Auto) 74.1 H, Lymph % (Auto) 13.0 L, [place] % (Auto) 10.7 H, Eos % (Auto) 1.4, Baso % (Auto) 0.3, Absolute Neuts (auto) 4.8, Absolute Lymphs (auto) 0.84, Nucleated RBC % 0, Sodium 138, Potassium 3.6, Chloride 111 H, Carbon Dioxide 22.0, Anion Gap 5, BUN 19 H, Creatinine 0.87, Estim Creat Clear Calc 86.11, Est GFR (MDRD) Af Amer 109, Est GFR (MDRD) Non-Af 90, BUN/Creatinine Ratio 21.7 H, Glucose 95, Calcium 8.0 L, Phosphorus 2.8, Total Bilirubin 0.80, AST 13 L, ALT 14 L, Alkaline Phosphatase 51, Total Protein 6.5, Albumin 2.6 L, Globulin 3.9, Albumin/Globulin Ratio 0.7 L Micro: Microbiology 03/23/24 16:50 Urine Catheter - Catheter Legionella Antigen - Final 03/23/24 16:50 Urine Catheter - Catheter Streptococcus pneumoniae Antigen (M - Final Physical Exam Narrative GENERAL: cooperative HEENT: Atraumatic; normocephalic EYES; Anicteric, Normal Conjunctiva NECK; supple, normal thyroid, RESPIRATORY: Diminished to auscultation CARDIOVASCULAR: Regular S1 S2, GI: soft, normoactive bowel sounds, : No Renal angle tenderness; EXTREMITIES: No edema, no clubbing, MUSCULOSKELETAL: no muscle wasting NEURO: Awake; quadriparesis SKIN: No Rash PSYCH; Flat affect Assessment & Plan Assessment/Plan (1) Complicated urinary tract infection: (2) Positive blood cultures: PLAN: Plan Patient is a 78-year-old gentleman with history of spinal cord injury with quadriparesis, neurogenic bladder with intermittent self-catheterization who was sent from the transitional care unit to the ED with abnormal urinalysis 1. Acute complicated cystitis secondary to self intermittent catheterization with suspected Pseudomonas ? Patient has been admitted to regular nursing floor ; Consult placed to Dr. Stuart with ID started patient on gentamicin 2. Acute metabolic encephalopathy ? Secondary to above plan is to treat the underlying clinical condition 3. History of spinal cord injury with quadriparesis, neurogenic bladder 4.? Essential hypertension Blood pressure controlled on lisinopril and nifedipine did continue 5.? BPH ?Patient is on Flomax did continue 6. Paroxysmal A-fib ? Rate controlled on systemic anticoagulation with apixaban 7.? Peripheral neuropathy ?Patient is on gabapentin did continue 8.? Depression Patient is on SSRI did continue 9.? Anemia ? Secondary to chronic disorder monitoring H&H and transfuse if patient becomes symptomatic or hemoglobin falls below 7 10. DVT prophylaxis ? On apixaban Time spent in the patient's overall evaluation,decision-making process, review of diagnostic data, adjustment of management, discussion with other providers, nursing nursing and ancillary staff involved in patient's care documentation, 50 Minutes Charges/Coding Visit Charges Inpatient E&M: [id number] [place] [id number]
[2024-03-24] MEDS: Menthol/Lanolin/Calamine/Znox 113 GM Tube 1 APPLIC TOPICAL ×3 (09:10→22:00)
[2024-03-24] MEDS: Potassium Chloride Oral Tablet 20 MEQ PO (09:10)
[2024-03-24] MEDS: Gabapentin 600 MG Tablet PO ×2 (09:10→22:04)
[2024-03-24] MEDS: Methenamine Hippurate 1 GM Tablet PO ×2 (09:11→22:00)
[2024-03-24] MEDS: Carvedilol 12.5 MG Tablet PO ×2 (09:11→22:00)
[2024-03-24] MEDS: APIXABAN 5 MG TABLET PO ×2 (09:11→22:00)
--- NOTE | 2024-03-24 09:19 | CASEMGMT ---
Social Work- SW followed up with TCU; pt is able to return when medically ready, but not prior to Wednesday. SW to follow up with family upon their arrival to the unit. KEO He
[2024-03-24] MEDS: Ascorbic Acid 500 MG Tablet 1000 MG PO (12:08)
--- NOTE | 2024-03-24 14:05 | CT_ITS ---
EXAM: CT ABDOMEN AND PELVIS WITH INTRAVENOUS CONTRAST CLINICAL INDICATION: GNR bacteremia, suspect intra-abd source. IV/PO TECHNIQUE: Helically acquired images were obtained of the abdomen and pelvis with intravenous contrast. This CT exam was performed using one or more of the following dose reduction techniques: automated exposure control, adjustment of the mA and/or kV according to patient size, and/or use of iterative reconstruction technique. CONTRAST: Oral and amp; IV Gastrografin and amp; 100mL [id number] COMPARISON: MRI abdomen, 02/15/[address] abdomen and pelvis, 03-07. FINDINGS: LOWER THORAX: Trace right pleural effusion and minimal dependent airspace disease in the basilar lungs which may be atelectasis rather than pneumonia. Small pericardial effusion, mild cardiomegaly, and coronary artery calcifications. ABDOMEN: LIVER: Right hepatic cyst which no follow-up is indicated. GALLBLADDER AND BILE DUCTS: No significant abnormality. No calcified gallstones. No gallbladder distention or wall edema. No intra- or extrahepatic biliary ductal dilation. PANCREAS: No significant abnormality. No focal cystic or solid mass. SPLEEN: Mild splenomegaly. No definite focal splenic lesion. ADRENALS: No significant abnormality. No nodules. KIDNEYS AND URETERS: There are multiple bilateral renal cysts for which no follow-up is indicated and there is mild left and moderate right renal atrophy. Right lower pole calyceal stone measures up to approximately 1.6 cm. No ureteral stone or hydronephrosis. STOMACH AND BOWEL: No evidence of small bowel obstruction. Moderate colonic gaseous distention with contrast laden fluid air level. No focal inflammatory change. PELVIS: APPENDIX: Normal appendix in the right lower quadrant. BLADDER: Mejía catheter present. Decompressed urinary bladder with likely bladder diverticula. REPRODUCTIVE: Normal as visualized. No mass. ABDOMEN and PELVIS: INTRAPERITONEAL SPACE: No significant abnormality. No ascites or other fluid collection. No free air. BONES/JOINTS: Suspect chronic fracture of the right femoral neck versus severe degenerative change. Diffuse degenerative changes in the spine. SOFT TISSUES: Fat-containing umbilical hernia. VASCULATURE: Enhancing lesion apparently contiguous with the pulmonary vessels in the posterior right hepatic lobe is likely a portal hepatic shunt as previously described. Atherosclerosis of the aorta and its branch vessels. Abdominal aorta is non-dilated. LYMPH NODES: No significant abnormality. No enlarged lymph nodes. TUBES, LINES AND DEVICES: Cardiac device leads partially visualized. CT/Abdomen/Pelvis WITH Contrast IMPRESSION: 1. Enhancing lesion apparently contiguous with the pulmonary vessels in the posterior right hepatic lobe is likely a portal hepatic shunt as previously described. 2. Trace right pleural effusion and minimal dependent airspace disease in the basilar lungs which may be atelectasis rather than pneumonia. 3. Small pericardial effusion, mild cardiomegaly, and coronary artery calcifications. 4. There are multiple bilateral renal cysts for which no follow-up is indicated and there is mild left and moderate right renal atrophy. Right lower pole calyceal stone measures up to approximately 1.6 cm. No ureteral stone or hydronephrosis. 5. Decompressed urinary bladder with likely bladder diverticula. 6. No evidence of small bowel obstruction. Moderate colonic gaseous distention with contrast laden fluid air level. 7. Mild splenomegaly. No definite focal splenic lesion. Electronically Signed: Freddie Rodríguez DO at 20:52 EST ,
--- NOTE | 2024-03-24 14:07 | PCM.PN.ID ---
Physical Exam Narrative Developed fever, confusion, transferred out of TCU. Now on gent, feeling better Const alert and no apparent distress General Appearance: cooperative Resp normal air movement and clear to auscultation bilaterally Cardio regular rate and regular rhythm GI soft to palpation, non-tender and non-distended Skin no rashes or lesions noted ID ID: Route of nutrition/ use of supplements: [] Nutritional Intake: [] IV Site: [] Mejía Catheter: [] Assessment & Plan Assessment/Plan (1) Bacteremia: PLAN: GNR bacteremia, suspect GI/urinary source. No cough, dyspnea, or hypoxia. CXR 03/22 showed only small ? atelectasis. Cont gent for now given recent h/o resistant pseudomonas in urine. Will order CT abd/pelvis. Will follow
[2024-03-24] MEDS: GENTAMICIN IVPB (15:56)
[2024-03-24] MEDS: DEXTROSE 5% IVPB (15:56)
[2024-03-24] MEDS: WATER IVPB (15:56)
[2024-03-24] MEDS: Citalopram 20 MG Tablet PO (22:00)
[2024-03-24] MEDS: Tamsulosin HCl 0.4 MG Capsule PO (22:00)
[2024-03-25 02:00] VITALS: BP 124/65; PULSE 64; RESP 15; TEMP 36.6; O2SAT 95
[2024-03-25 03:06] VITALS: BMI 35.2
[2024-03-25 03:35] VITALS: BP 124/65; PULSE 64; RESP 16; TEMP 36.6; O2SAT 97
[2024-03-25 07:50] VITALS: O2SAT 96
[2024-03-25] MEDS: Carvedilol 12.5 MG Tablet PO ×2 (08:35→22:28)
[2024-03-25] MEDS: APIXABAN 5 MG TABLET PO ×2 (08:35→22:28)
[2024-03-25] MEDS: Potassium Chloride Oral Tablet 20 MEQ PO (08:35)
[2024-03-25] MEDS: Gabapentin 600 MG Tablet PO ×2 (08:35→22:39)
[2024-03-25] MEDS: Methenamine Hippurate 1 GM Tablet PO ×2 (08:35→22:28)
[2024-03-25] MEDS: Menthol/Lanolin/Calamine/Znox 113 GM Tube 1 APPLIC TOPICAL ×3 (08:35→22:29)
[2024-03-25 09:14] VITALS: BP 122/63; PULSE 62; RESP 18; TEMP 36.5; O2SAT 96
--- NOTE | 2024-03-25 10:19 | PN.HOSP_ITS ---
Reason for Visit Reason for Visit: Diagnoses Urinary tract infection, site not specified (03/23/24) Bacteremia (03/23/24) Subjective Subjective Patient seen clinical condition improved urine cultures so far positive for gram-negative rods nonsignificant growth less than 1000CFU/ml. Objective Data Objective Data Vital Signs: Vital Signs Temp Pulse Resp BP Pulse Ox O2 Del Method 97.7 F L 62 18 122/63 H 96 Room Air 03/25/24 09:14 03/25/24 09:14 03/25/24 09:14 03/25/24 09:14 03/25/24 09:14 03/25/24 09:14 Oxygen Delivery Method Room Air Weight: 108 kg Body Mass Index (BMI) 35.2 Intake & Output: Intake and Output for Last 24 Hours 03/23/24 03/24/24 03/25/24 23:59 23:59 23:59 Intake Total 1901.08 / 2001.08 1677.42 / 1877.42 200 / 200 Output Total 1250 / 1250 2270 / 2270 600 / 600 Balance 651.08 / 751.08 -592.58 / -392.58 -400 / -400 Lab / Micro Data 03/24/24 06:31 03/24/24 06:31 Micro: Microbiology 03/24/24 15:45 Interface Orders MRSA (PCR) - Final Meth. resistant Staph. aureus 03/23/24 16:50 Urine, Catheterized Urine Culture - Preliminary Gram negative irineo 03/23/24 16:50 Urine Catheter - Catheter Legionella Antigen - Final 03/23/24 16:50 Urine Catheter - Catheter Streptococcus pneumoniae Antigen (M - Final Radiography Diagnostic Testing: Radiology Impression Abdomen/Pelvis CT 03/24/24 14:05 IMPRESSION: 1. Enhancing lesion apparently contiguous with the pulmonary vessels in the posterior right hepatic lobe is likely a portal hepatic shunt as previously described. 2. Trace right pleural effusion and minimal dependent airspace disease in the basilar lungs which may be atelectasis rather than pneumonia. 3. Small pericardial effusion, mild cardiomegaly, and coronary artery calcifications. 4. There are multiple bilateral renal cysts for which no follow-up is indicated and there is mild left and moderate right renal atrophy. Right lower pole calyceal stone measures up to approximately 1.6 cm. No ureteral stone or hydronephrosis. 5. Decompressed urinary bladder with likely bladder diverticula. 6. No evidence of small bowel obstruction. Moderate colonic gaseous distention with contrast laden fluid air level. 7. Mild splenomegaly. No definite focal splenic lesion. Electronically Signed: Freddie Rodríguez, at 20:52 EST , Physical Exam Narrative GENERAL: cooperative HEENT: Atraumatic; normocephalic EYES; Anicteric, Normal Conjunctiva NECK; supple, normal thyroid, RESPIRATORY: Diminished to auscultation CARDIOVASCULAR: Regular S1 S2, GI: soft, normoactive bowel sounds, : No Renal angle tenderness; EXTREMITIES: No edema, no clubbing, MUSCULOSKELETAL: no muscle wasting NEURO: Awake; quadriparesis SKIN: No Rash PSYCH; Flat affect Assessment & Plan Assessment/Plan (1) Complicated urinary tract infection: (2) Positive blood cultures: PLAN: Plan Patient is a 78-year-old gentleman with history of spinal cord injury with quadriparesis, neurogenic bladder with intermittent self-catheterization who was sent from the transitional care unit to the ED with abnormal urinalysis 1. Acute complicated cystitis secondary to self intermittent catheterization with suspected Pseudomonas ? Patient has been admitted to regular nursing floor ; Consult placed to Dr. Stuart with ID started patient on gentamicin -03/25/2024; patient seen clinical condition improved urine cultures so far positive for gram-negative rods nonsignificant growth less than 1000CFU/ml. CT of the abdomen and pelvis ordered the day prior did show multiple bilateral renal cysts for which no follow-up is indicated and there is mild left and moderate right renal atrophy. Right lower pole calyceal stone measures up to approximately 1.6 cm. No ureteral stone or hydronephrosis. 2. Acute metabolic encephalopathy ? Secondary to above plan is to treat the underlying clinical condition ? 03/25/2024; patient back to baseline. 3. History of spinal cord injury with quadriparesis, neurogenic bladder 4.? Essential hypertension Blood pressure controlled on lisinopril and nifedipine did continue 5.? BPH ?Patient is on Flomax did continue 6. Paroxysmal A-fib ? Rate controlled on systemic anticoagulation with apixaban 7.? Peripheral neuropathy ?Patient is on gabapentin did continue 8.? Depression Patient is on SSRI did continue 9.? Anemia ? Secondary to chronic disorder monitoring H&H and transfuse if patient becomes symptomatic or hemoglobin falls below 7 10. DVT prophylaxis ? On apixaban 11. Physical deconditioning ? Requested for PT OT eval and licensed master social worker to assist with discharge planning Time spent in the patient's overall evaluation,decision-making process, review of diagnostic data, adjustment of management, discussion with other providers, nursing nursing and ancillary staff involved in patient's care documentation, 36 Minutes Charges/Coding Visit Charges Inpatient E&M: 21784 Subs Hosp L2
[2024-03-25] MEDS: Ascorbic Acid 500 MG Tablet 1000 MG PO (12:21)
[2024-03-25 15:05] VITALS: BP 126/65; PULSE 63; RESP 17; TEMP 36.6; O2SAT 97
[2024-03-25] MEDS: WATER IVPB (16:16)
[2024-03-25] MEDS: DEXTROSE 5% IVPB (16:16)
[2024-03-25] MEDS: GENTAMICIN IVPB (16:16)
[2024-03-25 20:30] VITALS: BP 139/82; PULSE 67; RESP 18; TEMP 36.8; O2SAT 95
[2024-03-25] MEDS: Tamsulosin HCl 0.4 MG Capsule PO (22:28)
[2024-03-25] MEDS: Citalopram 20 MG Tablet PO (22:29)
[2024-03-26 02:30] VITALS: BP 127/66; PULSE 58; RESP 18; TEMP 36.6; O2SAT 99
[2024-03-26 05:22] VITALS: BMI 35.6
[2024-03-26 07:19] VITALS: O2SAT 97
--- NOTE | 2024-03-26 07:24 | PN.HOSP_ITS ---
Reason for Visit Reason for Visit: Diagnoses Urinary tract infection, site not specified (03/23/24) Bacteremia (03/23/24) Subjective Subjective Patient seen back to baseline plan is for patient to be discharged back to TCU on Wednesday?03/27/2024. Objective Data Objective Data Vital Signs: Vital Signs Temp Pulse Resp BP Pulse Ox O2 Del Method 97.8 F 58 L 18 127/66 H 99 Room Air 03/26/24 02:30 03/26/24 02:30 03/26/24 02:30 03/26/24 02:30 03/26/24 02:30 03/26/24 02:30 Oxygen Delivery Method Room Air Weight: 109 kg Body Mass Index (BMI) 35.6 Intake & Output: Intake and Output for Last 24 Hours 03/24/24 03/25/24 03/26/24 23:59 23:59 23:59 Intake Total 1677.42 / 1877.42 910.75 / 1310.75 750 / 750 Output Total 2270 / 2270 1400 / 1700 300 / 300 Balance -592.58 / -392.58 -489.25 / -389.25 450 / 450 Lab / Micro Data 03/24/24 06:31 03/24/24 06:31 Micro: Microbiology 03/23/24 13:41 Blood Culture (Wb) - Left Wrist Blood Culture - Preliminary No growth in 48 hours. 03/23/24 13:23 Blood Culture (Wb) - Left Wrist Blood Culture - Preliminary No growth in 48 hours. 03/23/24 16:50 Urine, Catheterized Urine Culture - Preliminary Gram negative irineo 03/24/24 15:45 Interface Orders MRSA (PCR) - Final Meth. resistant Staph. aureus 03/23/24 16:50 Urine Catheter - Catheter Legionella Antigen - Final 03/23/24 16:50 Urine Catheter - Catheter Streptococcus pneumoniae Antigen (M - Final Physical Exam Narrative GENERAL: cooperative HEENT: Atraumatic; normocephalic EYES; Anicteric, Normal Conjunctiva NECK; supple, normal thyroid, RESPIRATORY: Diminished to auscultation CARDIOVASCULAR: Regular S1 S2, GI: soft, normoactive bowel sounds, : No Renal angle tenderness; EXTREMITIES: No edema, no clubbing, MUSCULOSKELETAL: no muscle wasting NEURO: Awake; quadriparesis SKIN: No Rash PSYCH; Flat affect Assessment & Plan Assessment/Plan (1) Complicated urinary tract infection: (2) Positive blood cultures: PLAN: Plan Patient is a 78-year-old gentleman with history of spinal cord injury with quadriparesis, neurogenic bladder with intermittent self-catheterization who was sent from the transitional care unit to the ED with abnormal urinalysis 1. Acute complicated cystitis secondary to self intermittent catheterization with suspected Pseudomonas ? Patient has been admitted to regular nursing floor ; Consult placed to Dr. Stuart with ID started patient on gentamicin -03/25/2024; patient seen clinical condition improved urine cultures so far positive for gram-negative rods nonsignificant growth less than 1000CFU/ml. CT of the abdomen and pelvis ordered the day prior did show multiple bilateral renal cysts for which no follow-up is indicated and there is mild left and moderate right renal atrophy. Right lower pole calyceal stone measures up to approximately 1.6 cm. No ureteral stone or hydronephrosis. ? 03/26/2024; antibiotics discontinued 2. Acute metabolic encephalopathy ? Secondary to above plan is to treat the underlying clinical condition ? 03/25/2024; patient back to baseline. ? 03/26/2024;Patient seen back to baseline plan is for patient to be discharged back to TCU on Wednesday?03/27/2024. 3. History of spinal cord injury with quadriparesis, neurogenic bladder 4.? Essential hypertension Blood pressure controlled on lisinopril and nifedipine did continue 5.? BPH ?Patient is on Flomax did continue 6. Paroxysmal A-fib ? Rate controlled on systemic anticoagulation with apixaban 7.? Peripheral neuropathy ?Patient is on gabapentin did continue 8.? Depression Patient is on SSRI did continue 9.? Anemia ? Secondary to chronic disorder monitoring H&H and transfuse if patient becomes symptomatic or hemoglobin falls below 7 10. DVT prophylaxis ? On apixaban 11. Physical deconditioning ? Requested for PT OT eval and manager social responsibility to assist with discharge planning Time spent in the patient's overall evaluation,decision-making process, review of diagnostic data, adjustment of management, discussion with other providers, nursing nursing and ancillary staff involved in patient's care documentation, 36 Minutes Charges/Coding Visit Charges Inpatient E&M: 18988 Subs Hosp L2
[2024-03-26] MEDS: Potassium Chloride Oral Tablet 20 MEQ PO (08:08)
[2024-03-26] MEDS: Carvedilol 12.5 MG Tablet PO ×2 (08:08→22:00)
[2024-03-26] MEDS: APIXABAN 5 MG TABLET PO ×2 (08:09→22:00)
[2024-03-26] MEDS: Menthol/Lanolin/Calamine/Znox 113 GM Tube 1 APPLIC TOPICAL ×3 (08:09→22:01)
[2024-03-26] MEDS: Ascorbic Acid 500 MG Tablet 1000 MG PO (08:09)
[2024-03-26] MEDS: Methenamine Hippurate 1 GM Tablet PO ×2 (08:10→21:59)
[2024-03-26] MEDS: Gabapentin 600 MG Tablet PO ×2 (08:12→21:59)
[2024-03-26 08:30] VITALS: BP 139/68; PULSE 62; RESP 18; TEMP 36.4; O2SAT 99
[2024-03-26 14:30] VITALS: BP 143/81; PULSE 71; RESP 16; TEMP 36.7; O2SAT 97
[2024-03-26 22:00] VITALS: BP 138/78; PULSE 63; RESP 16; TEMP 36.7; O2SAT 99
[2024-03-26] MEDS: Tamsulosin HCl 0.4 MG Capsule PO (22:00)
[2024-03-26] MEDS: Citalopram 20 MG Tablet PO (22:00)
[2024-03-27 03:34] VITALS: BP 141/67; PULSE 59; RESP 16; TEMP 36.6; O2SAT 98
[2024-03-27 05:33] VITALS: BMI 35.5
[2024-03-27 06:28] LABS: Absolute Lymphocyte Count 0.96 X10^3/uL (0.83-4.51); Absolute Neutrophil Count 3.6 X10^3/uL (2.0-7.7); Basophil# 0.03 X10^3/uL; Basophil% 0.6 % (0-1); Eosinophil# 0.22 X10^3/uL; Eosinophils% 4.2 % (0-5); Hematocrit 31.5 % (40-54); Lymphocyte # 0.96 X10^3/ul (0.83-4.51); Lymphocyte % 18.3 % (19-41); Mean Corp Hgb Conc 31.7 g/dL (32-36); Mean Corpuscular Hgb 27.5 pg (27.0-32.0); Mean Corpuscular Volume 86.8 fL (80-94); Mean Platelet Vol. 9.6 fl (6.2-12.0); Monocyte# 0.47 X10^3/uL; NRBC Flagged by Analyzer 0 % (0-5); Neutrophil # 3.55 X10^3/uL (2.7-7.7); Neutrophil % 67.7 % (47-70); Platelet Count 166 K/mm3 (150-450); RBC Distribution Width CV 14.9 % (11.6-14.6); RBC Distribution Width SD 47.6 fl (35.1-43.9); Red Blood Count 3.63 M/mm3 (4.6-6.2); White Blood Count 5.2 K/mm3 (4.4-11.0)
[2024-03-27 06:50] LABS: International Normalized Ratio 1.4
[2024-03-27 07:02] LABS: Anion Gap 6 (5-15); BUN 11 mg/dL (7-18); BUN/Creat Ratio 13.2 RATIO (10-20); Calcium,Total 8.6 mg/dL (8.5-10.1); Chloride 110 mmol/L (98-107); Creatinine, Serum 0.83 mg/dL (0.70-1.30); EST Glomerular Filtration Rate 95 mL/min (>60); Est Glom Filt Rate - Afr Amer 115 mL/min (>60); Glucose 88 mg/dL (74-106); Magnesium 2.1 mg/dL (1.6-2.6); Potassium 3.4 mmol/L (3.5-5.1); Sodium Level 139 mmol/L (136-145)
[2024-03-27 08:30] VITALS: BP 130/78; PULSE 61; RESP 18; TEMP 36.7; O2SAT 98
[2024-03-27] MEDS: Senna/Docusate Sodium 1 Tablet 2 TABLET PO (08:40)
[2024-03-27] MEDS: Gabapentin 600 MG Tablet PO (08:41)
[2024-03-27] MEDS: Carvedilol 12.5 MG Tablet PO (08:41)
[2024-03-27] MEDS: Menthol/Lanolin/Calamine/Znox 113 GM Tube 1 APPLIC TOPICAL (08:41)
[2024-03-27] MEDS: Potassium Chloride Oral Tablet 20 MEQ PO (08:41)
[2024-03-27] MEDS: APIXABAN 5 MG TABLET PO (08:41)
[2024-03-27] MEDS: Methenamine Hippurate 1 GM Tablet PO (08:41)
--- NOTE | 2024-03-27 11:34 | TREXTCAR_ITS ---
Diet Diet Order/Speech Therapy: 03/23/24 14:58 Diet: Cardiac - Heart Healthy Food consistency:: Regular Liquid Consistency:: Regular/Thin Routine Orders/Code Status Suppository Type: Dulcolax 10mg Suppository Frequency: Daily PRN Change Mejía Catheter: Every month. DC O2, CPAP, BIPAP needs Home O2 Discharge instructions: No Wound(s) coccyx: Wound Type: Pressure Injury Problem/Diagnosis (1) Complicated urinary tract infection: Status: Acute Code(s): N39.0 - Urinary tract infection, site not specified (2) Positive blood cultures: Status: Acute Code(s): R78.81 - Bacteremia Allergies/Procedures Done in Hospital Allergies ceftriaxone Allergy (Verified 03/23/24 13:06) Rash ciprofloxacin (From Cipro) Allergy (Verified 03/23/24 13:06) Hives sulfamethoxazole (From Bactrim) Allergy (Verified 03/23/24 13:06) PT UNSURE OF REACTION trimethoprim (From Bactrim) Allergy (Verified 03/23/24 13:06) PT UNSURE OF REACTION Type of Care/Length of Stay Estimated LOS: Convalescent Care Less Than 30 days Type of Care Needed: Skilled Rehab Potential: Fair Prognosis: Fair Additional Orders/Day of Discharge Day of Discharge: 03/27/24 Discharge Plan Admission Admit Date/Time: 03/23/24 13:40 Primary Reason for Your Visit: Generalized weakness. UTI ruled out Attending Provider: Justen Pompa Primary Care Provider: Tunde Beard Consulting Providers: Tunde Stuart; Sindi Navarro; Marc Cantu Discharge Orders/Prescriptions Prescriptions: New sennosides-docusate sodium [Stimulant Laxative Plus] 8.6-50 mg Tablet 2 tab PO BID Qty: 0 0RF Continued citalopram 20 mg tablet 20 mg PO QHS ascorbic acid (vitamin C) 500 mg tablet 1,000 mg PO LUNCH tamsulosin 0.4 mg Capsule 0.4 mg PO QHS 30 Days Qty: 30 0RF methenamine hippurate 1 gram tablet 1 g PO BID 30 Days Qty: 60 0RF carvedilol 12.5 mg Tablet 12.5 mg PO BID vitamin E [Vitamin E-400] 180 mg PO DAILY cholecalciferol (vitamin D3) 25 mcg (1,000 unit) capsule 25 mcg PO DAILY docusate sodium [Enemeez] 283 mg/5 mL enema 283 mg [place] BID potassium chloride 10 mEq Tablet,Er Particles/Crystals 20 meq PO DAILYCM Qty: 60 0RF gabapentin 600 mg tablet 600 mg PO BID Eliquis 5 mg tablet 5 mg PO BID Qty: 180 3RF Referrals / Follow Up: Caesar Doshi MD [Med Staff - Active Staff] - Within 1 Month Tunde Stuart MD [Med Staff - Active Staff] - Within 1 Month Tunde Beard DO [Primary Care Provider] - Disposition Disposition (needs filled in before D/C Order can be placed): Group Home Facility
[2024-03-27] MEDS: Ascorbic Acid 500 MG Tablet 1000 MG PO (12:04)
--- NOTE | 2024-03-27 12:39 | DS.PCM_ITS ---
Providers Date of Admission: 03/23/24 Date of Discharge: 03/27/24 Primary Care Physician: Dr. Tunde Beard, Consultations 03/23/24 14:58 Consult: Infectious Disease Routine Consulting Provider: Tunde Stuart Reason for Consult: GNR, UTI EMERGENT Consult: No MD Notified: Yes Date Notified: 03/23/24 Time Notified: 13:40 Method of Notification: Text Reason For Visit: GNR UTI, BACTEREMIA Diagnosis Discharge Diagnosis (1) Complicated urinary tract infection: Status: Acute Code(s): N39.0 - Urinary tract infection, site not specified (2) Positive blood cultures: Status: Acute Code(s): R78.81 - Bacteremia Plan Patient is a 78-year-old gentleman with history of spinal cord injury with quadriparesis, neurogenic bladder with intermittent self-catheterization who was sent from the transitional care unit to the ED with abnormal urinalysis 1. Acute complicated cystitis secondary to self intermittent catheterization with suspected Pseudomonas ? Patient has been admitted to regular nursing floor ; Consult placed to Dr. Stuart with ID started patient on gentamicin -03/25/2024; patient seen clinical condition improved urine cultures so far positive for gram-negative rods nonsignificant growth less than 1000CFU/ml. CT of the abdomen and pelvis ordered the day prior did show multiple bilateral renal cysts for which no follow-up is indicated and there is mild left and moderate right renal atrophy. Right lower pole calyceal stone measures up to approximately 1.6 cm. No ureteral stone or hydronephrosis. ? 03/26/2024; antibiotics discontinued 03/27: Patient was monitored off antibiotic. No fever. No tachycardia. Hemodynamically stable. 2. Acute metabolic encephalopathy ? Secondary to above plan is to treat the underlying clinical condition ? 03/25/2024; patient back to baseline. 03/27: Patient discharged to TCU. Acute encephalopathy resolved. 3. History of spinal cord injury with quadriparesis, neurogenic bladder 03/27: Patient was using intermittent catheterization at home but chronic Mejía at TCU therefore discharged with Mejía catheter. Advised to follow-up with the urologist Dr. Doshi. 4.? Essential hypertension Blood pressure controlled on lisinopril and nifedipine did continue 5.? BPH ?Patient is on Flomax did continue 6. Paroxysmal A-fib ? Rate controlled on systemic anticoagulation with apixaban 7.? Peripheral neuropathy ?Patient is on gabapentin did continue 8.? Depression Patient is on SSRI did continue 9.? Anemia ? Secondary to chronic disorder monitoring H&H and transfuse if patient becomes symptomatic or hemoglobin falls below 7 10. DVT prophylaxis ? On apixaban 11. Physical deconditioning ? Requested for PT OT eval and clinical social work therapist to assist with discharge planning Medications at Discharge Home Medications ascorbic acid (vitamin C) 500 mg tablet 1,000 mg PO LUNCH supplement 08/17/21 tamsulosin 0.4 mg capsule 0.4 mg PO QHS Urine retention 30 days #30 caps 09/03/21 citalopram 20 mg tablet 20 mg PO QHS depression 12/04/21 carvedilol 12.5 mg tablet 12.5 mg PO BID BP 02/12/24 cholecalciferol (vitamin D3) 25 mcg (1,000 unit) capsule 25 mcg PO DAILY supplement 02/12/24 vitamin E 180 mg PO DAILY supplement 02/12/24 docusate sodium 283 mg/5 mL enema (Enemeez) 283 mg [place] BID constipation 02/13/24 potassium chloride 10 mEq tablet,extended release(part/cryst) 20 meq (2 x 10 mEq) PO DAILYCM hypokalemia #60 tabs 02/17/24 gabapentin 600 mg tablet 600 mg PO BID nerve pain 02/21/24 methenamine hippurate 1 gram tablet 1 g PO BID urinary 30 days #60 tabs 02/28/24 apixaban 5 mg tablet (Eliquis) 5 mg PO BID blood thinner #180 tabs 03/14/24 piperacillin-tazobactam 3.375 gram/50 mL dextrose(iso-os) IV piggyback (Zosyn) 3.375 g (56.25 mL) IV Q8H 4 days 03/27/24 sennosides 8.6 mg-docusate sodium 50 mg tablet (Stimulant Laxative Plus) 2 tab PO BID #0 tabs 03/27/24 Physical Exam Narrative Seen and examined. Patient admitted with concern of UTI. UTI ruled out. History of neurogenic bladder with intermittent self-catheterization. No fever. Physical exam General: Alert, Oriented x3, Cooperative. BMI 35.4 kg/m? HEENT: Atraumatic, PERRLA, EOMI, Normocephalic Oral: No Gingival or Mucosal Lesions/ Ulcerations Neck: Supple, No JVD, Negative Carotid Bruits Chest wall/Lungs: Air entry diminished in bilateral lung bases. No crepitation/rhonchi Cardiovascular: Regular rate, Regular Rhythm, Normal S1, Normal S2, No M/G/R Abdomen: Bowel Sounds Present, Soft, Non Tender, Non-Distended : No dysuria. No renal angle tenderness. No suprapubic tenderness. Extremities: Chronic dependent edema. Edema, Capillary Refill Less than 3 Seconds Skin: No rashes, No breakdown Musculoskeletal: Chronic paraplegia. History of a spinal cord injury. Functional quadriplegia Neurological: DTR 1-2+. Cranial nerves intact. Higher functions intact. Bedbound. Psych/Mental Status: Flat affect. Weight / BMI Weight Weight: 239 lb 13.807 oz Body Mass Index (BMI) 35.5 ABG / Lab / Microbiology Data 03/27/24 06:02 03/27/24 06:02 Laboratory: Laboratory Results - last 24 hr 03/27/24 06:02: WBC 5.2, RBC 3.63 L, Hgb 10.0 L, Hct 31.5 L, MCV 86.8, MCH 27.5, MCHC 31.7 L, RDW Std Deviation 47.6 H, RDW Coeff of Donna 14.9 H, Plt Count 166, MPV 9.6, Immature Gran % (Auto) 0.200, Neut % (Auto) 67.7, Lymph % (Auto) 18.3 L , [place] % (Auto) 9.0, Eos % (Auto) 4.2, Baso % (Auto) 0.6, Absolute Neuts (auto) 3.6, Absolute Lymphs (auto) 0.96, Nucleated RBC % 0, PT 17.0 H, INR 1.4, Sodium 139, Potassium 3.4 L, Chloride 110 H, Carbon Dioxide 23.0, Anion Gap 6, BUN 11, Creatinine 0.83, Estim Creat Clear Calc 90.60, Est GFR (MDRD) Af Amer 115, Est GFR (MDRD) Non-Af 95, BUN/Creatinine Ratio 13.2, Glucose 88, Calcium 8.6, Magnesium 2.1 Microbiology: Microbiology 03/23/24 16:50 Urine, Catheterized Urine Culture - Final Pseudomonas aeruginosa 03/25/24 06:09 Blood Culture (Wb) - Anticubital Left Blood Culture - Preliminary No growth in 48 hours. 03/24/24 10:30 Blood Culture (Wb) - Left Hand Blood Culture - Preliminary No growth in 48 hours. 03/23/24 13:41 Blood Culture (Wb) - Left Wrist Blood Culture - Preliminary No growth in 48 hours. 03/23/24 13:23 Blood Culture (Wb) - Left Wrist Blood Culture - Preliminary No growth in 48 hours. 03/24/24 15:45 Interface Orders MRSA (PCR) - Final Meth. resistant Staph. aureus 03/23/24 16:50 Urine Catheter - Catheter Legionella Antigen - Final 03/23/24 16:50 Urine Catheter - Catheter Streptococcus pneumoniae Antigen (M - Final D/C Instructions DC O2, CPAP, BIPAP Needs Home O2 Discharge instructions: No Meaningful Use Info Meaningful Use Meaningful Use Diagnoses (Choose all that apply): None applicable Ischemic Stroke Statin Dosing Therapy Reference: STATIN DOSE THERAPY REFERENCE: * Patients > 75 years receive moderate or high dose statin therapy. * Patients 75 years or YOUNGER should receive HIGH intensity statin dose unless contraindicated. You will be required to document reason for non-treatment if statin daily dose does not meet guidelines. HIGH DOSE STATIN THERAPY DAILY Atorvastatin > than or = to 40 mg Rosuvastatin > than or = to 20 mg Amlodipine + Atorvastatin > than or = to 2.5/40 mg Ezetimibe + Simvastatin 10/80 mg Simvastatin 80mg Discharge Plan Admission Admit Date/Time: 03/23/24 13:40 Primary Reason for Your Visit: Generalized weakness. UTI ruled out Attending Provider: Justen Pompa Primary Care Provider: Tunde Beard Consulting Providers: Tunde Stuart; Sindi Navarro; Marc Cantu Instructions Additional Instructions / Restrictions: Mejía catheter care. Discharge Orders/Prescriptions Prescriptions: New sennosides-docusate sodium [Stimulant Laxative Plus] 8.6-50 mg Tablet 2 tab PO BID Qty: 0 0RF Continued citalopram 20 mg tablet 20 mg PO QHS ascorbic acid (vitamin C) 500 mg tablet 1,000 mg PO LUNCH tamsulosin 0.4 mg Capsule 0.4 mg PO QHS 30 Days Qty: 30 0RF methenamine hippurate 1 gram tablet 1 g PO BID 30 Days Qty: 60 0RF carvedilol 12.5 mg Tablet 12.5 mg PO BID vitamin E [Vitamin E-400] 180 mg PO DAILY cholecalciferol (vitamin D3) 25 mcg (1,000 unit) capsule 25 mcg PO DAILY docusate sodium [Enemeez] 283 mg/5 mL enema 283 mg [place] BID potassium chloride 10 mEq Tablet,Er Particles/Crystals 20 meq PO DAILYCM Qty: 60 0RF gabapentin 600 mg tablet 600 mg PO BID Eliquis 5 mg tablet 5 mg PO BID Qty: 180 3RF Referrals / Follow Up: Caesar Doshi MD [Med Staff - Active Staff] - Within 1 Month Tunde Stuart MD [Med Staff - Active Staff] - Within 1 Month Tunde Beard DO [Primary Care Provider] - Disposition Disposition (needs filled in before D/C Order can be placed): [facility]
[2024-03-27 12:48] VITALS: BP 120/70; PULSE 63; RESP 18; TEMP 36.6; O2SAT 97
--- NOTE | 2024-03-27 12:58 | PHA.DC.MR.R ---
Pharmacy [place] Med Reconciliation Pharmacy Service has performed discharge medication reconciliation for this patient. The patient's discharge medication list was reviewed for discrepancies and discrepancies were resolved. Medications at Discharge Home Medications ascorbic acid (vitamin C) 500 mg tablet 1,000 mg PO LUNCH supplement 08/17/21 tamsulosin 0.4 mg capsule 0.4 mg PO QHS Urine retention 30 days #30 caps 09/03/21 citalopram 20 mg tablet 20 mg PO QHS depression 12/04/21 carvedilol 12.5 mg tablet 12.5 mg PO BID BP 02/12/24 cholecalciferol (vitamin D3) 25 mcg (1,000 unit) capsule 25 mcg PO DAILY supplement 02/12/24 vitamin E 180 mg PO DAILY supplement 02/12/24 docusate sodium 283 mg/5 mL enema (Enemeez) 283 mg [place] BID constipation 02/13/24 potassium chloride 10 mEq tablet,extended release(part/cryst) 20 meq (2 x 10 mEq) PO DAILYCM hypokalemia #60 tabs 02/17/24 gabapentin 600 mg tablet 600 mg PO BID nerve pain 02/21/24 methenamine hippurate 1 gram tablet 1 g PO BID urinary 30 days #60 tabs 02/28/24 apixaban 5 mg tablet (Eliquis) 5 mg PO BID blood thinner #180 tabs 03/14/24 piperacillin-tazobactam 3.375 gram/50 mL dextrose(iso-os) IV piggyback (Zosyn) 3.375 g (56.25 mL) IV Q8H 4 days 03/27/24 sennosides 8.6 mg-docusate sodium 50 mg tablet (Stimulant Laxative Plus) 2 tab PO BID #0 tabs 03/27/24
--- NOTE | 2024-03-27 13:06 | PN.ID_ITS ---
Physical Exam Narrative Feeling much better, no fever, no abd pain Const alert and no apparent distress General Appearance: cooperative Resp normal air movement and clear to auscultation bilaterally Cardio regular rate and regular rhythm GI soft to palpation, non-tender and non-distended Skin no rashes or lesions noted ID ID: Route of nutrition/ use of supplements: [] Nutritional Intake: [] IV Site: [] Mejía Catheter: [] Assessment & Plan Assessment/Plan (1) Bacteremia: PLAN: citro bacteremia, urinary source. No cough, dyspnea, or hypoxia. CXR 03/22 showed only small ? atelectasis. Gent was stopped yesterday. Does need to continue abx, will write for 4 more days iv zosyn. Cont methenamine for retirement uti prophylaxis. Will follow as needed, d/w oil field caser
--- NOTE | 2024-03-27 13:09 | CASEMGMT ---
Social Work Physician feels that pt is ready for discharge today.?TCU admissions notified and fax sent. Pt and family and bedside nurse notified. No other SW needs noted. Disposition:TCU, skilled level of care under convalescent stay. KEO He
--- NOTE | 2024-03-27 13:45 | NURSING ---
[facility] called to Vikram in TCU pt to go to room #1.
== END 2024-03-27 14:14 | disposition skilled nursing facility (03) | DRG 698 ==
LOC: ED 13:40 → MS3 14:11
PROVIDERS: Internal Medicine; Internal Medicine Infectious Disease; Admitting Provider Family Medicine; Emergency Provider Emergency Medicine; PCP Preventive Medicine Occupational Medicine; Visit Provider Internal Medicine
DX: T83.511A Infection and inflammatory reaction due to indwelling urethral catheter, initial encounter (principal); G93.41 Metabolic encephalopathy; G82.50 Quadriplegia, unspecified; R78.81 Bacteremia; E87.20 Acidosis, unspecified; N30.00 Acute cystitis without hematuria; N13.8 Other obstructive and reflux uropathy; D63.8 Anemia in other chronic diseases classified elsewhere; I48.0 Paroxysmal atrial fibrillation; G62.9 Polyneuropathy, unspecified; B96.5 Pseudomonas (aeruginosa) (mallei) (pseudomallei) as the cause of diseases classified elsewhere; I69.311 Memory deficit following cerebral infarction; I12.9 Hypertensive chronic kidney disease with stage 1 through stage 4 chronic kidney disease, or unspecified chronic kidney disease; E78.5 Hyperlipidemia, unspecified; N18.2 Chronic kidney disease, stage 2 (mild); F41.8 Other specified anxiety disorders; Z95.0 Presence of cardiac pacemaker; N31.9 Neuromuscular dysfunction of bladder, unspecified; N40.1 Benign prostatic hyperplasia with lower urinary tract symptoms; Z79.899 Other long term (current) drug therapy; Z86.718 Personal history of other venous thrombosis and embolism; Z79.01 Long term (current) use of anticoagulants; Z87.828 Personal history of other (healed) physical injury and trauma; R53.81 Other malaise
CPT/HCPCS: 36415; 74177; 80048; 80053; 80170; 81001; 83605; 83735; 84100; 85025; 85610; 87040; 87077; 87086; 87088; 87184; 87186; 87449; 87641; 93005; 94668; 97162; 97166; 97530; 97535; 99284; J2185; Q9967; A4216

== ENCOUNTER 2024-03-27 14:37 | Inpatient (IN) | payer MEDICARE, OTHER, SELFPAY ==
[2024-03-27 14:49] VITALS: BP 145/81; PULSE 65; RESP 18; TEMP 36.8; O2SAT 96; BMI 34.2
[2024-03-27] MEDS: Carvedilol 12.5 MG Tablet PO (17:52)
[2024-03-27] MEDS: Gabapentin 600 MG Tablet PO (17:52)
--- NOTE | 2024-03-27 20:11 | HP.PCM_ITS ---
HPI - General General Date of Admission: 03/27/24 Date of Service: 03/27/24 Chief Complaint: Here for rehabilitation. HPI Narrative DANNY AQUINO, is a 78 Male who presents with followin03/23/2024 [facility] ED TCU resident fever, confusion, gram negative irineo bacteremia. Gentamicin given for gram negative irineo bacteremia, urinary tract infection. 03/23/2024 Admit [facility]. Repeat blood cultures, consult ID, continue Gentamicin for gram negative irineo bacteremia, urinary tract infection. 03/24/2024 ID continued Gentamicin for gram negative irineo bacteremia, urinary tract infection. Treat bacteremia/UTI for encephalopathy. 03/25/2024 Clinically improved, urine culture < 1000 cfu/mL gram negative irineo. CT A/P mild left and moderate right renal atrophy, right lower pole kidney stone, no ureteral stone. Encephalopathy resolved. 03/26/2024 Back to baseline, plan discharge to TCU. Stop antibiotics. 03/27/2024 Admit to TCU with debility, here for rehabilitation, strengthening, prior to discharge home with . [facility] Medical History (Updated 03/27/24 @ 20:[address] Luis Calros Gallardo MD) Neurogenic bladder MRSA (methicillin resistant staph aureus) culture positive Non-smoker Fever Dehydration Acute hypokalemia Transient hypotension Syncope Vision loss of right eye Acute UTI Anxiety Prostatic hypertrophy TIA (transient ischemic attack) Neurogenic bowel Sick sinus syndrome Neuropathy 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 Depression Hypertension Atrial fibrillation Anterior communicating artery aneurysm Atrial fibrillation History of DVT (deep vein thrombosis) AAA (abdominal aortic aneurysm) without rupture Sick sinus syndrome Family history of hypertension History of spinal cord injury Paraplegia Premature ventricular contractions BPH (benign prostatic hypertrophy) Depression Cervical spinal stenosis Spinal cord injury Neurogenic bladder Degenerative joint disease (DJD) of lumbar spine Anemia Central cord syndrome Subluxation of C6-C7 cervical vertebrae 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.9) Home Medications ?Medication ?Instructions ?Recorded ?Last Taken ?Type ascorbic acid (vitamin C) 500 mg 1,000 mg PO LUNCH supplement 08/17/21 02/11/24 History tablet tamsulosin 0.4 mg capsule 0.4 mg PO QHS Urine retention 30 09/03/21 02/27/24 21:10 Rx days #30 caps 0.4 mg citalopram 20 mg tablet 20 mg PO QHS depression 12/04/21 02/27/24 21:10 History 20 mg carvedilol 12.5 mg tablet 12.5 mg PO BID BP 02/12/24 02/28/24 08:20 History 12.5 mg cholecalciferol (vitamin D3) 25 25 mcg PO DAILY supplement 02/12/24 Unknown Hi story mcg (1,000 unit) capsule vitamin E 180 mg PO DAILY supplement 02/12/24 02/11/24 History docusate sodium 283 mg/5 mL enema 283 mg RI BID constipation 02/13/24 02/27/24 17:00 History (Enemeez) 283 mg potassium chloride 10 mEq 20 meq (2 x 10 mEq) PO DAILYCM 02/17/24 Unknown Rx tablet,extended release(part/cryst) hypokalemia #60 tabs gabapentin 600 mg tablet 600 mg PO BID nerve pain 02/21/24 02/28/24 09:45 History 600 mg methenamine hippurate 1 gram tablet 1 g PO BID urinary 30 days #60 tabs 02/28/24 Unknown Rx apixaban 5 mg tablet (Eliquis) 5 mg PO BID blood thinner #180 tabs 03/14/24 Unknown Rx piperacillin-tazobactam 3.375 3.375 g (56.25 mL) IV Q8H 03/27/24 Unknown Rx gram/50 mL dextrose(iso-os) IV bacteremia/UTI 4 days piggyback (Zosyn) sennosides 8.6 mg-docusate sodium 2 tab PO BID stool softener #0 tabs 03/27/24 Unknown Rx 50 mg tablet (Stimulant Laxative Plus) Allergy/AdvReac Type Severity Reaction Status Date / Time ceftriaxone Allergy Rash Verified 03/23/24 13:06 ciprofloxacin (From Cipro) Allergy Hives Verified 03/23/24 13:06 sulfamethoxazole (From Allergy PT UNSURE Verified 03/23/24 13:06 Bactrim) OF REACTION trimethoprim (From Bactrim) Allergy PT UNSURE Verified 03/23/24 13:06 OF REACTION Family History Mother Breast cancer Cancer Brain cancer Sister Diabetes Hypertension CHF (congestive heart failure) Kidney disease Sister CHF (congestive heart failure) Cardiac defibrillator in situ Other Family history of hypertension Surgical History History of neck surgery History of permanent cardiac pacemaker placement S/P cervical spinal fusion Social History household members: spouse Smoking Status: Never smoker alcohol intake: current alcohol intake frequency: holidays/special occasions only Alcohol type: wine substance use type: does not use caffeine: Yes Type: coffee Number of servings: 1 what type of physical activity do you participate in: other details: Health point frequency: 1-2 times per week duration: 45-60 minutes/day seatbelt use: always do you feel safe at home: Yes ROS Constitutional Constitutional: Reports weakness; Denies chills, fever(s) or weight gain ENT HEENT: Denies headache(s), nasal congestion or nasal discharge Cardiovascular Cardiovascular: Denies chest pain or palpitations Respiratory/Chest Respiratory/Chest: Denies cough, excessive phlegm production or shortness of breath with exertion Gastrointestinal Gastrointestinal: Denies abdominal pain, nausea or vomiting Genitourinary Genitourinary: Denies dysuria Musculoskeletal Musculoskeletal: Denies joint pain or joint swelling Integumentary Integumentary: Denies rash or wounds Neurologic Neurologic: Denies focal weakness, numbness or tingling Psychiatric Psychiatric: Denies anxiety, auditory hallucinations, depression, homicidal ideation or suicidal ideation Vital Signs Vital Signs Vital Signs: 03/27/24 14:49 03/27/24 14:49 Temperature 98.2 F Temperature Source Temporal Pulse Rate 65 65 Pulse Rhythm Regular Pulse Strength Normal (2+) Respiratory Rate 18 18 Respiratory Effort Normal Non-Labored Respiratory Depth Normal Respiratory Pattern Normal Blood Pressure 145/81 H Blood Pressure Mean 102 Blood Pressure Source Monitor Blood Pressure Position Semi-Fowlers Blood Pressure Location Left Arm Pulse Ox 96 96 Oxygen Delivery Method Room Air Room Air Weight Weight: 108.409 kg Body Mass Index (BMI) 34.2 Physical Exam Const alert General Appearance: cooperative HEENT normocephalic Eyes PERRL and EOMs intact bilaterally Neck supple, no JVD and no carotid bruits Resp normal respiratory effort, normal air movement and clear to auscultation bilaterally Cardio regular rate and regular rhythm GI normal to inspection, nondistended, normoactive bowel sounds, non-tender and non-distended Bladder / Kidney Exam: catheter in place urethral Extremity normal capillary refill General Extremity: Negative for edema Skin no rashes or lesions noted General Skin Exam: no breakdown Neuro moves all extremities Speech: speech abnormal Details: Positive for other (Expressive aphasia.) Motor Exam: general weakness Psych affect normal Appearance: appropriate Assessment & Plan Assessment/Plan (1) Debility: (2) Acute encephalopathy: (3) Bacteremia: (4) Recurrent UTI: (5) Spinal cord injury: (6) 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 * Debility - PT/OT. * Aphasia - ST. * Pain - Tylenol 1000mg q6 prn pain (1-10). * Bowel - senna/colace 2 tablets bid, Docusate 283mg rectal bid, Dulcolax 10mg daily prn, Magnesium citrate 300mL daily prn, MOM 30mL daily prn. * Adult immunization - Administer pneumonia vaccine, covid vaccine, flu vaccine as appropriate. * DVT prophylaxis - on Eliquis. * Atrial fibrillation - Coreg 12.5mg bidcm, Eliquis 5mg bid. * Recurrent UTI - Methenamine 1gm bid, Vitamin C 1000mg daily. * Vitamin D deficiency - D3 25mcg daily. * Depression - Citalopram 20mg qhs, stable chronic intermediate teacher use, GDR not recommended. * Neuropathic pain - Gabapentin 600mg bidcm. * C. Koseri bacteremia - Zosyn 3.375gm iv q8 thru 03/31/2024. * Hypokalemia - KCL ER 20meq daily. * BPH/Urinary retention/Neurogenic bladder - Tamsulosin 0.4mg daily, chronic indwelling starr catheter.
[2024-03-27] MEDS: 0.9% Saline Lock 10 ML Syringe IV (21:50)
[2024-03-27] MEDS: Piperacil/Tazobactam 3.375 GM in 0.9% Normal Saline (50mL MB+) 50 ML IV (21:52)
[2024-03-27] MEDS: 0.9% Normal Saline (100mL Bag) 100 ML 15 ML IV (21:57)
[2024-03-27] MEDS: Citalopram 20 MG Tablet PO (21:59)
[2024-03-27] MEDS: Methenamine Hippurate 1 GM Tablet PO (21:59)
[2024-03-27] MEDS: Senna/Docusate Sodium 1 Tablet 2 TABLET PO (21:59)
[2024-03-27] MEDS: Tamsulosin HCl 0.4 MG Capsule PO (21:59)
[2024-03-27] MEDS: APIXABAN 5 MG TABLET PO (21:59)
[2024-03-27 22:01] VITALS: BP 148/74; PULSE 58; RESP 16
[2024-03-28] MEDS: Piperacil/Tazobactam 3.375 GM in 0.9% Normal Saline (50mL MB+) 50 ML IV ×3 (05:38→22:32)
[2024-03-28 05:57] LABS: Absolute Lymphocyte Count 0.91 X10^3/uL (0.83-4.51); Absolute Neutrophil Count 3.7 X10^3/uL (2.0-7.7); Basophil# 0.04 X10^3/uL; Basophil% 0.7 % (0-1); Eosinophil# 0.23 X10^3/uL; Eosinophils% 4.3 % (0-5); Hematocrit 30.4 % (40-54); Hemoglobin 9.9 g/dL (13.0-16.5); Lymphocyte # 0.91 X10^3/ul (0.83-4.51); Lymphocyte % 16.9 % (19-41); Mean Corp Hgb Conc 32.6 g/dL (32-36); Mean Corpuscular Hgb 28.6 pg (27.0-32.0); Mean Corpuscular Volume 87.9 fL (80-94); Monocyte# 0.54 X10^3/uL; NRBC Flagged by Analyzer 0 % (0-5); Neutrophil # 3.65 X10^3/uL (2.7-7.7); Neutrophil % 67.7 % (47-70); Platelet Count 167 K/mm3 (150-450); RBC Distribution Width SD 47.9 fl (35.1-43.9); Red Blood Count 3.46 M/mm3 (4.6-6.2); White Blood Count 5.4 K/mm3 (4.4-11.0)
[2024-03-28 06:23] LABS: Anion Gap 2 (5-15); BUN 14 mg/dL (7-18); BUN/Creat Ratio 16.5 RATIO (10-20); Calcium,Total 8.5 mg/dL (8.5-10.1); Chloride 110 mmol/L (98-107); Creatinine, Serum 0.85 mg/dL (0.70-1.30); EST Glomerular Filtration Rate 93 mL/min (>60); Est Glom Filt Rate - Afr Amer 113 mL/min (>60); Estimated Creatinine Clearance 89.73 ml/min; Glucose 92 mg/dL (74-106); Potassium 3.5 mmol/L (3.5-5.1); Sodium Level 138 mmol/L (136-145)
[2024-03-28 08:45] VITALS: BP 117/58; PULSE 60; RESP 18; TEMP 36.7; O2SAT 97
[2024-03-28] MEDS: Potassium Chloride Oral Tablet 20 MEQ PO (08:47)
[2024-03-28] MEDS: APIXABAN 5 MG TABLET PO ×2 (08:47→22:19)
[2024-03-28] MEDS: Methenamine Hippurate 1 GM Tablet PO ×2 (08:48→22:19)
[2024-03-28] MEDS: Carvedilol 12.5 MG Tablet PO ×2 (08:48→16:52)
[2024-03-28] MEDS: Senna/Docusate Sodium 1 Tablet 2 TABLET PO ×2 (08:48→22:19)
[2024-03-28] MEDS: Ascorbic Acid 500 MG Tablet 1000 MG PO (08:48)
[2024-03-28] MEDS: Cholecalciferol (VIT D3) 25 MCG TABLET (1,000 UNITS) PO (08:48)
[2024-03-28] MEDS: Gabapentin 600 MG Tablet PO ×2 (08:50→16:51)
[2024-03-28] MEDS: Tuberculin,Purif.prot.deriv. 50 TU/ML Vial 0.1 ML ID (12:31)
[2024-03-28] MEDS: 0.9% Saline Lock 10 ML Syringe IV ×2 (13:03→22:20)
--- NOTE | 2024-03-28 13:52 | PHA.CONS_ITS ---
Documented by User: Mayra Sagastume 03/28/24 15:37 TCU RX Drug Regimen Review Subjective/Objective Subjective/Objective Subjective: TCU Admission. 78 YOM TCU resident sent to ER with fever and confusion. Hospitalized for acute encephalopathy 2/2 citrobacter koseri bacterem ia, UTI ruled out, pneumonia ruled out. Admitted to TCU with debility for strengthening and rehabilitation. Objective: Allergies ceftriaxone Allergy (Verified 03/23/24 13:06) Rash ciprofloxacin (From Cipro) Allergy (Verified 03/23/24 13:06) Hives sulfamethoxazole (From Bactrim) Allergy (Verified 03/23/24 13:06) PT UNSURE OF REACTION trimethoprim (From Bactrim) Allergy (Verified 03/23/24 13:06) PT UNSURE OF REACTION Current Medications Generic Name Dose Route Start Last Admin Trade Name Freq PRN Reason Stop Dose Admin Acetaminophen 1,000 mg 03/27/24 20:29 Acetaminophen 500 Mg Tablet PO Q6H PRN PRN Pain Score 1-10 Apixaban 5 mg 03/27/24 22:00 03/28/24 08:47 Apixaban 5 Mg Tablet PO 5 mg BID ED Administration Ascorbic Acid 1,000 mg 03/28/24 12:00 03/28/24 08:48 Ascorbic Acid 500 Mg Tablet PO 1,000 mg LUNCH ED Administration Bisacodyl 10 mg 03/27/24 14:58 Bisacodyl 10 Mg Suppository RC DAILY PRN PRN Constipation Carvedilol 12.5 mg 03/27/24 17:00 03/28/24 08:48 Carvedilol 12.5 Mg Tablet PO 12.5 mg BIDCM ED Administration Protocol Cholecalciferol 25 mcg 03/28/24 10:00 03/28/24 08:48 Cholecalciferol (Vit D3) 25 Mcg Tablet (1,000 Units) PO 25 mcg DAILY ED Administration Citalopram Hydrobromide 20 mg 03/27/24 22:00 03/27/24 21:59 Citalopram 20 Mg Tablet PO 20 mg QHS ED Administration Docusate Sodium 283 mg 03/28/24 10:00 Docusate Sodium 283 Mg/5 Ml Enema RC BID@1000,1800 ED Gabapentin 600 mg 03/27/24 17:00 03/28/24 08:50 Gabapentin 600 Mg Tablet PO 600 mg BIDCM ED Administration Piperacillin Sod/Tazobactam 50 mls @ 12.5 mls/hr 03/27/24 15:11 03/28/24 13:04 Sod 3.375 gm/ Sodium Chloride IV 03/31/24 22:01 12.5 mls/hr Q8 ED Administration Sodium Chloride 100 mls @ 15 mls/hr 03/27/24 20:11 03/28/24 05:42 IV Infused .Q6H40M PRN Infusion Saline Flush Sodium Chloride 100 mls @ 15 mls/hr 03/27/24 20:11 IV .Q6H40M PRN Additional IVPB Infusion Magnesium Citrate 300 ml 03/27/24 14:58 Magnesium Citrate 300 Ml PO X1 PRN Constipation Magnesium Hydroxide 30 ml 03/27/24 14:58 Magnesium Hydroxide 30 Ml Udc PO DAILY PRN PRN Constipation Methenamine Hippurate 1 gm 03/27/24 22:00 03/28/24 08:48 Methenamine Hippurate 1 Gm Tablet PO 1 gm BID ED Administration Potassium Chloride 20 meq 03/28/24 08:00 03/28/24 08:47 Potassium Chloride Oral Tablet 20 Meq PO 20 meq DAILYCM ED Administration Senna/Docusate Sodium 2 tablet 03/27/24 22:00 03/28/24 08:48 Senna/Docusate Sodium 1 Tablet PO 2 tablet BID ED Administration Sodium Chloride 10 - 40 ml 03/27/24 15:08 03/28/24 13:03 0.9% Saline Lock 10 Ml Syringe IV 10 ml UD PRN Administration SALINE FLUSH Tamsulosin HCl 0.4 mg 03/27/24 22:00 03/27/24 21:59 Tamsulosin Hcl 0.4 Mg Capsule PO 0.4 mg QHS ED Administration Problem List Vitamin D deficiency (Acute) Recurrent UTI (Acute) Acute encephalopathy (Acute) Bacteremia (Acute) Essential (primary) hypertension (Acute) CVA (cerebral vascular accident) (Acute) Benign prostate hyperplasia (Acute) Depression (Acute) Atrial fibrillation (Acute) Debility (Acute) Spinal cord injury (Acute) 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 (Chronic) Vital Signs Temp Pulse Resp BP Pulse Ox O2 Del Method 98.0 F 60 18 117/58 L 97 Room Air 03/28/24 08:45 03/28/24 08:45 03/28/24 08:45 03/28/24 08:45 03/28/24 08:45 03/28/24 08:45 Oxygen Delivery Method Room Air Weight: 108.409 kg Body Mass Index (BMI) 34.2 Sodium 138 mmol/L (136-145) 03/28/24 05:08 Potassium 3.5 mmol/L (3.5-5.1) 03/28/24 05:08 Chloride 110 mmol/L (98-107) H 03/28/24 05:08 Carbon Dioxide 26.0 mmol/L (21.0-32.0) 03/28/24 05:08 Anion Gap 2 (5-15) L 03/28/24 05:08 BUN 14 mg/dL (7-18) 03/28/24 05:08 Creatinine 0.85 mg/dL (0.70-1.30) 03/28/24 05:08 Est GFR (MDRD) Af Amer 113 mL/min (>60) 03/28/24 05:08 Est GFR (MDRD) Non-Af 93 mL/min (>60) 03/28/24 05:08 BUN/Creatinine Ratio 16.5 RATIO (10-20) 03/28/24 05:08 Glucose 92 mg/dL (74-106) 03/28/24 05:08 Assessment/Plan: 1. Pain: acetaminophen 1000mg PO Q6H PRN pain 1-10. Resident hasn't had any doses. Please continue to monitor for increased pain and PRN usage. 2. Bowel: senna/docusate 1T PO BID, docusate enema 283mg RC BID, bisacodyl 10mg RC daily PRN constipation, MOM 30mL PO daily PRN constipation and magnesium citrate 300mL PO x1 PRN constipation. No PRN doses have been given. Please continue to monitor for constipation and PRN usage. Last documented bowel movement was 03/27. 3. Atrial fibrillation: carvedilol 12.5mg PO BID and apixaban 5mg PO BID. Please continue to monitor BP (last 117/58), HR (last 60), renal function, S/S of bleeding, hemoglobin (last 9.9g/dL), platelets (last 167,000). 4. Recurrent UTI: ascorbic acid 1000mg PO lunch and methenamine 1gm PO BID. Please continue to monitor for S/S of infection. 5. Hypokalemia: potassium chloride 20mEq PO daily. Please continue to monitor potassium (last 3.5mmol/L). 6. BPH/urinary retention/neurogenic bladder: tamsulosin 0.4mg PO QHS. Please continue to monitor for S/S of BPH and BP. 7. Vitamin D deficiency: cholecalciferol 25mcg PO daily. Please continue to monitor vitamin D (last 03/01/24). 8. C. koseri bacteremia: piperacillin/tazobactam 3.375gm IV Q8 thru 03/31/24. P lease continue to monitor S/S of infection, diarrhea and renal function. Assessment/Plan for indications treated with psychotropic medications: 1. Depression: citalopram 20mg PO QHS. Please see physician note regarding GDR. Please continue to monitor for S/S of suicidal ideation (black box warning), falls/fractures (BEERs), sodium (last 138mmol/L). 2. Neuropathic pain: gabapentin 600mg PO BID. GDR not indicated as this resident is using for pain. Please continue to monitor for increased pain, confusion, falls/fractures (BEERs) and renal function. Medical chart and medication regimen reviewed. The following medication irregularities or issues were identified: None Date Date of Note: 03/28/24 Documented by User: Dr. Luis Carlos Gallardo MD 03/28/24 17:02 TCU RX Drug Regimen Review Provider Comments Provider responsibility Provider Comments to Recommendations by Pharmacy Agree
--- NOTE | 2024-03-28 16:01 | CHAPLAIN ---
Type of Pastoral Visit ___ Initial Visit ___ Follow-up Visit ___ On-call Visit ___ General Patient Visit ___ Spiritual Assessment ___ Family Conference ___ Bereavement ___ Rapid Response ___ Code Blue ___ Other (describe below) Pastoral Care Referral From ___ Patient ___ Family ___ Nurse ___ Physician ___ Dredge Deckhand ___ Blocker And Sewer ___ Other (describe below) Sacrament/Intervention ___ Active listening ___ Anointing ___ Temple ___ Bereavement ___ Communion ___ Angie exploration ___ ___ Life review ___ Prayer ___ Reconciliation ___ Sacrament of Sick ___ Supportive presence ___ Wedding ___ Other (describe below) Pastoral Comments patient was sleeping and did not awaken to his name
[2024-03-28] MEDS: Citalopram 20 MG Tablet PO (22:19)
[2024-03-28] MEDS: Tamsulosin HCl 0.4 MG Capsule PO (22:19)
[2024-03-29] MEDS: Piperacil/Tazobactam 3.375 GM in 0.9% Normal Saline (50mL MB+) 50 ML IV ×3 (06:30→22:10)
[2024-03-29] MEDS: 0.9% Saline Lock 10 ML Syringe IV ×3 (06:30→14:22)
[2024-03-29] MEDS: Carvedilol 12.5 MG Tablet PO ×2 (08:57→17:41)
[2024-03-29] MEDS: APIXABAN 5 MG TABLET PO ×2 (08:58→22:12)
[2024-03-29] MEDS: Senna/Docusate Sodium 1 Tablet 2 TABLET PO ×2 (08:58→22:12)
[2024-03-29] MEDS: Potassium Chloride Oral Tablet 20 MEQ PO (08:58)
[2024-03-29] MEDS: Methenamine Hippurate 1 GM Tablet PO ×2 (08:58→22:12)
[2024-03-29] MEDS: Cholecalciferol (VIT D3) 25 MCG TABLET (1,000 UNITS) PO (08:59)
[2024-03-29] MEDS: Gabapentin 600 MG Tablet PO ×2 (09:00→17:42)
[2024-03-29 09:04] VITALS: BP 125/69; PULSE 68; RESP 18; O2SAT 96
[2024-03-29] MEDS: Ascorbic Acid 500 MG Tablet 1000 MG PO (11:34)
--- NOTE | 2024-03-29 12:19 | NURSING ---
Inspector Experimental Assembly Note; Activity Asset: Lucía Pierre has returned for continued therapy and continues to be in dependent in his choice of daily activities. Ignacio uses a white board and can read large print. He will watch or listen to tv and enjoys visits from his family and friends. When not having visitors or in therapy he prefers to rest. He has a table and smartphone his family brought him. Staff will remind him of weekly activities and respect his right to say no.
--- NOTE | 2024-03-29 13:36 | NS ---
MST score = 3
[2024-03-29 14:20] VITALS: PULSE 67; RESP 18; O2SAT 97
[2024-03-29 15:58] VITALS: TEMP 36.6
[2024-03-29 17:45] VITALS: BP 143/76; PULSE 69
[2024-03-29] MEDS: Tamsulosin HCl 0.4 MG Capsule PO (22:12)
[2024-03-29] MEDS: Citalopram 20 MG Tablet PO (22:12)
[2024-03-30] MEDS: Piperacil/Tazobactam 3.375 GM in 0.9% Normal Saline (50mL MB+) 50 ML IV ×3 (06:30→20:41)
[2024-03-30] MEDS: 0.9% Saline Lock 10 ML Syringe IV ×3 (06:30→14:12)
[2024-03-30] MEDS: Carvedilol 12.5 MG Tablet PO ×2 (07:41→18:09)
[2024-03-30] MEDS: Potassium Chloride Oral Tablet 20 MEQ PO (07:41)
[2024-03-30] MEDS: Gabapentin 600 MG Tablet PO ×2 (07:41→18:09)
[2024-03-30] MEDS: Cholecalciferol (VIT D3) 25 MCG TABLET (1,000 UNITS) PO (07:42)
[2024-03-30] MEDS: APIXABAN 5 MG TABLET PO ×2 (07:42→20:41)
[2024-03-30] MEDS: Senna/Docusate Sodium 1 Tablet 2 TABLET PO ×2 (07:42→20:40)
[2024-03-30] MEDS: Methenamine Hippurate 1 GM Tablet PO ×2 (07:42→20:40)
[2024-03-30 07:51] VITALS: BP 154/79; PULSE 65; RESP 18; O2SAT 96
[2024-03-30] MEDS: Ascorbic Acid 500 MG Tablet 1000 MG PO (11:19)
[2024-03-30 13:00] VITALS: PULSE 65; RESP 18; O2SAT 96
[2024-03-30 15:07] VITALS: TEMP 36.3
[2024-03-30 18:14] VITALS: BP 145/81; PULSE 59
[2024-03-30] MEDS: Lactobacillis Acidophilus 1 CAP PO (20:40)
[2024-03-30] MEDS: Citalopram 20 MG Tablet PO (20:40)
[2024-03-30] MEDS: Tamsulosin HCl 0.4 MG Capsule PO (20:40)
[2024-03-31] MEDS: Piperacil/Tazobactam 3.375 GM in 0.9% Normal Saline (50mL MB+) 50 ML IV ×3 (05:54→22:30)
[2024-03-31] MEDS: Gabapentin 600 MG Tablet PO ×2 (07:53→17:15)
[2024-03-31] MEDS: APIXABAN 5 MG TABLET PO ×2 (07:54→22:32)
[2024-03-31] MEDS: Carvedilol 12.5 MG Tablet PO ×2 (07:54→17:15)
[2024-03-31] MEDS: Ensure Plus High Protein 120 ML LIQUID PO ×3 (07:54→17:15)
[2024-03-31] MEDS: Cholecalciferol (VIT D3) 25 MCG TABLET (1,000 UNITS) PO (07:54)
[2024-03-31] MEDS: Methenamine Hippurate 1 GM Tablet PO ×2 (07:54→22:33)
[2024-03-31] MEDS: Senna/Docusate Sodium 1 Tablet 2 TABLET PO ×2 (07:54→22:32)
[2024-03-31] MEDS: Lactobacillis Acidophilus 1 CAP PO ×2 (07:54→22:33)
[2024-03-31] MEDS: Potassium Chloride Oral Tablet 20 MEQ PO (07:54)
[2024-03-31 08:00] VITALS: BP 158/79; PULSE 64; RESP 18; TEMP 36.5; O2SAT 94
[2024-03-31] MEDS: Ascorbic Acid 500 MG Tablet 1000 MG PO (13:06)
--- NOTE | 2024-03-31 13:20 | CASEMGMT ---
Social Work SW completed BIMS () and PHQ-2 () for MDS assessment. Mayela Cole MSW TARGET SETTER
[2024-03-31 14:00] VITALS: PULSE 64; RESP 18; O2SAT 94
--- NOTE | 2024-03-31 15:52 | CHAPLAIN ---
Type of Pastoral Visit ___ Initial Visit ___ Follow-up Visit ___ On-call Visit ___ General Patient Visit ___ Spiritual Assessment ___ Family Conference ___ Bereavement ___ Rapid Response ___ Code Blue ___ Other (describe below) Pastoral Care Referral From ___ Patient ___ Family ___ Nurse ___ Physician ___ Adjunct History Instructor ___ Gold Layer ___ Other (describe below) Sacrament/Intervention ___ Active listening ___ Anointing ___ Restorationism ___ Bereavement ___ Communion ___ Angie exploration ___ ___ Life review ___ Prayer ___ Reconciliation ___ Sacrament of Sick ___ Supportive presence ___ Wedding ___ Other (describe below) Pastoral Comments patient was sound asleep in his chair and did not awaken to his name; family members are not present; left a calling card
[2024-03-31] MEDS: Tamsulosin HCl 0.4 MG Capsule PO (22:32)
[2024-03-31] MEDS: Citalopram 20 MG Tablet PO (22:35)
--- NOTE | 2024-04-01 05:06 | NURSING ---
Pt draining around #18 amharic starr cath. Last changed on . Starr removed and new #18 placed. 350cc urine obtained with insertion of new cath. Will continue to monitor for draining around starr.
[2024-04-01] MEDS: Senna/Docusate Sodium 1 Tablet 2 TABLET PO ×2 (07:48→21:17)
[2024-04-01] MEDS: Gabapentin 600 MG Tablet PO ×2 (07:48→17:28)
[2024-04-01] MEDS: Cholecalciferol (VIT D3) 25 MCG TABLET (1,000 UNITS) PO (07:48)
[2024-04-01] MEDS: Methenamine Hippurate 1 GM Tablet PO ×2 (07:48→21:17)
[2024-04-01] MEDS: Ensure Plus High Protein 120 ML LIQUID PO ×3 (07:48→17:28)
[2024-04-01] MEDS: APIXABAN 5 MG TABLET PO ×2 (07:48→21:16)
[2024-04-01] MEDS: Lactobacillis Acidophilus 1 CAP PO ×2 (07:48→21:16)
[2024-04-01] MEDS: Carvedilol 12.5 MG Tablet PO ×2 (07:48→17:28)
[2024-04-01] MEDS: Potassium Chloride Oral Tablet 20 MEQ PO (07:48)
[2024-04-01 10:13] VITALS: BP 154/87; PULSE 67; RESP 16; TEMP 36.5; O2SAT 98
[2024-04-01] MEDS: Ascorbic Acid 500 MG Tablet 1000 MG PO (12:12)
[2024-04-01] MEDS: Tamsulosin HCl 0.4 MG Capsule PO (21:17)
[2024-04-01] MEDS: Citalopram 20 MG Tablet PO (21:18)
[2024-04-02] MEDS: Gabapentin 600 MG Tablet PO ×2 (07:58→17:06)
[2024-04-02] MEDS: 0.9% Saline Lock 10 ML Syringe IV (07:59)
[2024-04-02] MEDS: Senna/Docusate Sodium 1 Tablet 2 TABLET PO ×2 (07:59→21:25)
[2024-04-02] MEDS: Ensure Plus High Protein 120 ML LIQUID PO ×3 (07:59→17:06)
[2024-04-02] MEDS: Methenamine Hippurate 1 GM Tablet PO ×2 (07:59→21:25)
[2024-04-02] MEDS: APIXABAN 5 MG TABLET PO ×2 (07:59→21:25)
[2024-04-02] MEDS: Carvedilol 12.5 MG Tablet PO ×2 (07:59→17:06)
[2024-04-02] MEDS: Lactobacillis Acidophilus 1 CAP PO ×2 (07:59→21:25)
[2024-04-02] MEDS: Cholecalciferol (VIT D3) 25 MCG TABLET (1,000 UNITS) PO (07:59)
[2024-04-02] MEDS: Potassium Chloride Oral Tablet 20 MEQ PO (07:59)
[2024-04-02 08:00] VITALS: BP 141/80; PULSE 62; RESP 18; TEMP 36.4; O2SAT 94
[2024-04-02] MEDS: Ascorbic Acid 500 MG Tablet 1000 MG PO (12:32)
[2024-04-02] MEDS: Citalopram 20 MG Tablet PO (21:25)
[2024-04-02] MEDS: Tamsulosin HCl 0.4 MG Capsule PO (21:25)
[2024-04-03 08:08] VITALS: BP 161/81; PULSE 61; RESP 16; O2SAT 96
[2024-04-03] MEDS: Cholecalciferol (VIT D3) 25 MCG TABLET (1,000 UNITS) PO (08:08)
[2024-04-03] MEDS: Ensure Plus High Protein 120 ML LIQUID PO ×3 (08:08→17:12)
[2024-04-03] MEDS: Senna/Docusate Sodium 1 Tablet 2 TABLET PO ×2 (08:08→21:57)
[2024-04-03] MEDS: Carvedilol 12.5 MG Tablet PO ×2 (08:09→17:12)
[2024-04-03] MEDS: Potassium Chloride Oral Tablet 20 MEQ PO (08:09)
[2024-04-03] MEDS: APIXABAN 5 MG TABLET PO ×2 (08:09→21:57)
[2024-04-03] MEDS: Lactobacillis Acidophilus 1 CAP PO ×2 (08:09→21:57)
[2024-04-03] MEDS: Methenamine Hippurate 1 GM Tablet PO ×2 (08:09→21:57)
[2024-04-03] MEDS: Gabapentin 600 MG Tablet PO ×2 (08:13→17:12)
--- NOTE | 2024-04-03 08:58 | NURSING ---
Field Marketing Specialist Note; MDS for 04/03/2024 Complete
[2024-04-03] MEDS: Ascorbic Acid 500 MG Tablet 1000 MG PO (12:31)
--- NOTE | 2024-04-03 14:13 | NURSING ---
Offered covid vaccine, VIS provided. Resident refuses at this time.
[2024-04-03 14:25] VITALS: TEMP 36.3
[2024-04-03 17:01] VITALS: BP 169/89; PULSE 57; RESP 15; TEMP 36.6; O2SAT 97
--- NOTE | 2024-04-03 18:40 | RAD_ITS ---
EXAM: XR ABDOMEN, 1 VIEW CLINICAL INDICATION: Nausea. TECHNIQUE: Frontal supine view of the abdomen/pelvis. COMPARISON: CT abdomen and pelvis, 03/24/2024 FINDINGS: LOWER THORAX: Cardiac device lead partially visualized. GASTROINTESTINAL TRACT: Moderate to large amount of colonic stool and gas without distinct evidence of small bowel obstruction. ORGANS: Right lower pole calyceal stone correlated with the prior CT examination. No organomegaly. BONES/JOINTS: Diffuse osseous degenerative changes. SOFT TISSUES: No acute pathology. VASCULATURE: Vascular calcifications. RAD/Abdomen Single View IMPRESSION: 1. Right lower pole calyceal stone correlated with the prior CT examination. 2. Moderate to large amount of colonic stool and gas without distinct evidence of small bowel obstruction. Electronically Signed: Freddie Rodríguez DO at 19:06 EST ,
[2024-04-03] MEDS: Magnesium Citrate 300 ML PO (19:48)
--- NOTE | 2024-04-03 19:51 | NURSING ---
Addendum entered by Dina Tracy 04/03/24 22:10: Dr. Gallardo updated pt has not had results from Mag Citrate admin, N.O. for soap suds enema if the pt will take it and if he refuses, no further orders. This nurse went to pts room and offered enema and pt refused and stated he would rather do it tomorrow morning. Denies nausea/upset stomach at this time; no further needs.. Original Note: Dr. Gallardo updated of KUB xray results via phone, new order received to administer PRN order of 300ml Mag Citrate. Pt drank entire bottle while this nurse was present in room and informed to let us know when he needed to have a BM.
[2024-04-03] MEDS: Tamsulosin HCl 0.4 MG Capsule PO (21:57)
[2024-04-03] MEDS: Citalopram 20 MG Tablet PO (21:57)
[2024-04-03] MEDS: 0.9% Saline Lock 10 ML Syringe IV (21:58)
[2024-04-04 05:45] LABS: Absolute Lymphocyte Count 1.05 X10^3/uL (0.83-4.51); Absolute Neutrophil Count 4.3 X10^3/uL (2.0-7.7); Basophil# 0.03 X10^3/uL; Basophil% 0.5 % (0-1); Eosinophil# 0.19 X10^3/uL; Eosinophils% 3.1 % (0-5); Hematocrit 33.2 % (40-54); Hemoglobin 10.9 g/dL (13.0-16.5); Lymphocyte # 1.05 X10^3/ul (0.83-4.51); Lymphocyte % 17.4 % (19-41); Mean Corp Hgb Conc 32.8 g/dL (32-36); Mean Corpuscular Hgb 29.1 pg (27.0-32.0); Mean Corpuscular Volume 88.5 fL (80-94); Mean Platelet Vol. 10.2 fl (6.2-12.0); Monocyte# 0.48 X10^3/uL; Monocyte% 7.9 % (0-10); NRBC Flagged by Analyzer 0 % (0-5); Neutrophil # 4.27 X10^3/uL (2.7-7.7); Neutrophil % 70.8 % (47-70); Platelet Count 183 K/mm3 (150-450); RBC Distribution Width CV 15.3 % (11.6-14.6); RBC Distribution Width SD 49.2 fl (35.1-43.9); Red Blood Count 3.75 M/mm3 (4.6-6.2)
[2024-04-04 06:26] LABS: Anion Gap 5 (5-15); BUN 20 mg/dL (7-18); BUN/Creat Ratio 20.5 RATIO (10-20); Calcium,Total 9.7 mg/dL (8.5-10.1); Chloride 108 mmol/L (98-107); Creatinine, Serum 0.98 mg/dL (0.70-1.30); EST Glomerular Filtration Rate 79 mL/min (>60); Est Glom Filt Rate - Afr Amer 96 mL/min (>60); Estimated Creatinine Clearance 77.82 ml/min; Glucose 93 mg/dL (74-106); Potassium 3.7 mmol/L (3.5-5.1); Sodium Level 139 mmol/L (136-145)
[2024-04-04] MEDS: Ensure Plus High Protein 120 ML LIQUID PO ×3 (08:15→17:39)
[2024-04-04] MEDS: Potassium Chloride Oral Tablet 20 MEQ PO (08:16)
[2024-04-04] MEDS: Carvedilol 12.5 MG Tablet PO ×2 (08:16→17:38)
[2024-04-04] MEDS: Gabapentin 600 MG Tablet PO ×2 (08:17→17:37)
[2024-04-04] MEDS: Methenamine Hippurate 1 GM Tablet PO ×2 (08:17→21:21)
[2024-04-04] MEDS: APIXABAN 5 MG TABLET PO ×2 (08:18→21:20)
[2024-04-04] MEDS: Lactobacillis Acidophilus 1 CAP PO ×2 (08:18→21:20)
[2024-04-04] MEDS: Senna/Docusate Sodium 1 Tablet 2 TABLET PO ×2 (08:18→21:21)
[2024-04-04] MEDS: Cholecalciferol (VIT D3) 25 MCG TABLET (1,000 UNITS) PO (08:19)
[2024-04-04] MEDS: Lactulose 20 GM/30 ML UDC PO (08:24)
[2024-04-04] MEDS: Losartan Potassium 100 MG Tablet PO (08:32)
[2024-04-04] MEDS: Ascorbic Acid 500 MG Tablet 1000 MG PO (11:37)
[2024-04-04] MEDS: 0.9% Saline Lock 10 ML Syringe IV ×2 (11:38→21:19)
[2024-04-04 12:16] VITALS: BP 124/67; PULSE 68; RESP 16; TEMP 37.3; O2SAT 96
[2024-04-04 14:58] VITALS: BMI 33.8
[2024-04-04 21:00] VITALS: PULSE 64; O2SAT 95
[2024-04-04] MEDS: Citalopram 20 MG Tablet PO (21:20)
[2024-04-04] MEDS: Tamsulosin HCl 0.4 MG Capsule PO (21:20)
[2024-04-04 21:33] VITALS: TEMP 37.1
[2024-04-05] VITALS (10 sets, daily range): BP systolic 86–156; BP diastolic 48–74; PULSE 62–66; RESP 16–18; TEMP 36.7–38.8; O2SAT 93–97
[2024-04-05] MEDS: Methenamine Hippurate 1 GM Tablet PO ×2 (08:10→23:26)
[2024-04-05] MEDS: Losartan Potassium 100 MG Tablet PO (08:10)
[2024-04-05] MEDS: Cholecalciferol (VIT D3) 25 MCG TABLET (1,000 UNITS) PO (08:10)
[2024-04-05] MEDS: Ensure Plus High Protein 120 ML LIQUID PO ×2 (08:10→11:57)
[2024-04-05] MEDS: Senna/Docusate Sodium 1 Tablet 2 TABLET PO ×2 (08:10→23:26)
[2024-04-05] MEDS: Lactobacillis Acidophilus 1 CAP PO ×2 (08:11→23:24)
[2024-04-05] MEDS: Potassium Chloride Oral Tablet 20 MEQ PO (08:11)
[2024-04-05] MEDS: Carvedilol 12.5 MG Tablet PO ×2 (08:11→17:14)
[2024-04-05] MEDS: APIXABAN 5 MG TABLET PO ×2 (08:11→23:25)
[2024-04-05] MEDS: Gabapentin 600 MG Tablet PO ×2 (08:16→17:13)
[2024-04-05] MEDS: Ascorbic Acid 500 MG Tablet 1000 MG PO (11:57)
--- NOTE | 2024-04-05 14:20 | CASEMGMT ---
Social Work IDT met with patient and for care plan meeting. Discussed patient's progress in PT/OT/ST/SN. Educated to Medicare benefit and being on day 35/100, indicating copay days. would like pt to ambulate and tx independently prior to returning home. Therapy will continue working with pt and have offered family training. SW will continue to follow for DC planning. LIYAH RodriguezW
--- NOTE | 2024-04-05 15:58 | CHAPLAIN ---
Type of Pastoral Visit ___ Initial Visit ___ Follow-up Visit ___ On-call Visit ___ General Patient Visit ___ Spiritual Assessment ___ Family Conference ___ Bereavement ___ Rapid Response ___ Code Blue ___ Other (describe below) Pastoral Care Referral From ___ Patient ___ Family ___ Nurse ___ Physician ___ Programmer Or Analyst ___ Blackjack Supervisor ___ Other (describe below) Sacrament/Intervention ___ Active listening ___ Anointing ___ Jainism ___ Bereavement ___ Communion ___ Angie exploration ___ ___ Life review ___ Prayer ___ Reconciliation ___ Sacrament of Sick ___ Supportive presence ___ Wedding ___ Other (describe below) Pastoral Comments patient was not in his room at time of attempted visit
[2024-04-05 17:39] LABS: Color, Urine Yellow (Yellow); Glucose, Dipstick Normal (Normal); Ketone-Dipstick Negative (Negative); Leukocyte Esterase-Dipstick 500 /ul (Negative); Nitrite-Dipstick Positive (Negative); Occult Blood-Urine 150 /ul (Negative); Protein-Dipstick 30 mg/dl (Negative); Urine Bilirubin Dipstick Negative (Negative); Urine Clarity Cloudy (Clear); Urine Urobilinogen Normal (Normal)
[2024-04-05 18:18] LABS: Absolute Lymphocyte Count 0.44 X10^3/uL (0.83-4.51); Absolute Neutrophil Count 7.2 X10^3/uL (2.0-7.7); Basophil# 0.02 X10^3/uL; Basophil% 0.2 % (0-1); Eosinophil# 0.15 X10^3/uL; Eosinophils% 1.8 % (0-5); Hematocrit 35.4 % (40-54); Hemoglobin 11.6 g/dL (13.0-16.5); Lymphocyte # 0.44 X10^3/ul (0.83-4.51); Lymphocyte % 5.2 % (19-41); Mean Corp Hgb Conc 32.8 g/dL (32-36); Mean Corpuscular Hgb 28.6 pg (27.0-32.0); Mean Corpuscular Volume 87.2 fL (80-94); Monocyte# 0.66 X10^3/uL; Monocyte% 7.8 % (0-10); NRBC Flagged by Analyzer 0 % (0-5); Neutrophil # 7.22 X10^3/uL (2.7-7.7); Neutrophil % 84.8 % (47-70); POSITIVE DIFFERENTIAL YES; Platelet Count 183 K/mm3 (150-450); RBC Distribution Width CV 15.6 % (11.6-14.6); RBC Distribution Width SD 48.9 fl (35.1-43.9); Red Blood Count 4.06 M/mm3 (4.6-6.2); White Blood Count 8.5 K/mm3 (4.4-11.0)
[2024-04-05 18:31] LABS: Anion Gap 8 (5-15); BUN 24 mg/dL (7-18); BUN/Creat Ratio 21.1 RATIO (10-20); Calcium,Total 9.3 mg/dL (8.5-10.1); Chloride 107 mmol/L (98-107); Creatinine, Serum 1.14 mg/dL (0.70-1.30); EST Glomerular Filtration Rate 66 mL/min (>60); Est Glom Filt Rate - Afr Amer 80 mL/min (>60); Estimated Creatinine Clearance 66.48 ml/min; Glucose 109 mg/dL (74-106); Potassium 4.3 mmol/L (3.5-5.1); Sodium Level 140 mmol/L (136-145)
[2024-04-05] MEDS: Acetaminophen 500 MG Tablet 1000 MG PO (19:27)
--- NOTE | 2024-04-05 21:23 | NURSING ---
Dr. Gallardo updated on patient condition, new order for blood cultures x2, order verified, lab updated to draw blood cultures.
--- NOTE | 2024-04-05 21:45 | NURSING ---
VIBRATOR EQUIPMENT TESTER requests nurse urgently respond to patient room, patient immediately assessed. VIBRATOR EQUIPMENT TESTER x2 observed in room, patient observed sitting on BSC with sera steady in place leaning forward, VIBRATOR EQUIPMENT TESTER reports patient not responding to verbal stimuli. Pt. color whatley, shallow breathing,not responding to verbal stimuli or sternal rub, eyes closed,. Emergency call activated production assembler light, software engineer advisor on unit, responds to emergency call and activates rapid response per this nurse request. Patient begins to open eyes, moaning when asked questions, confused. GRAIN ELEVATOR MAN presents to room, patients primary nurse presents to room and provides patient report upon request to hospitalist. Dr. Navarro present in room, orders bolus, GRAIN ELEVATOR MAN RN obtains fluids and initiates bolus. Patient slowly becomes more alert, confused, repeatedly requesting to get into bed. Staff assist x4 with sera lift, patient assisted back to bed with max assist. Primary nurse (DAE Flores) assumes care present in room and VIBRATOR EQUIPMENT TESTER remains at bedside.
--- NOTE | 2024-04-05 21:50 | NURSING ---
HOTEL RECEPTIONIST called, responded to room, report given to HOTEL RECEPTIONIST team, Dr. Navarro requesting culture sensitivity for urine culture 03/23/24, lab contacted and updated with request, Lab states sensitivity will be ran tomorrow, Dr. Navarro updated that sensitivity will be run by lab tomorrow, Dr. Navarro agreeable, Dr. Navarro to check back on patient status, family at bedside, families questions about lab results and orders answered,
[2024-04-05 22:04] LABS: Bedside Glucose 135 mg/dL (74-106)
--- NOTE | 2024-04-05 22:33 | PN.HOSP_ITS ---
Hospitalist Note RAPID RESPONSE CALL: Rapid response called @ 9:34 pm. Responded to rapid response. Patient was at that time awake and improving. Patient was stooling on the toilet when he slumped over and passed out. Improved mentation with time. BP upper 80s. Administered 1L NS. Eventually transitioned to the bed, more alert and interactive. Patient with recent onset fever with resumption of IV zosyn per RN report for UTI with UA concerning. Requested that staff contact lab also and assure sensitivities be run on zosyn also as this was not noted in his prior culture. Family including son and noted preference to have patient remain on TCU. Case with reviewed with his physician Dr. Gallardo who was amenable. Re- discussion 04/05/24 10:40 pm to assure continued improvement with workforce staffing advisor noting patient up in bed, eating and talking with his family. Repeat BP recently requested and noted to be 134/68, pulse 66.
--- NOTE | 2024-04-05 22:50 | NURSING ---
calls unit requesting update on patient and vital signs. vital signs obtained Temp:98.5, HR 66, Resp 18, BP 134/68, Dr. Navarro updated with no new orders at this time. Patient more alert, intermittent confusion observed, observed eating chips with spouse and other family member at bedside. No distress observed or reported at this time. Call light in reach.
[2024-04-05] MEDS: Menthol/Lanolin/Calamine/Znox 113 GM Tube 1 APPLIC TOPICAL (23:24)
[2024-04-05] MEDS: Citalopram 20 MG Tablet PO (23:25)
[2024-04-05] MEDS: Tamsulosin HCl 0.4 MG Capsule PO (23:25)
[2024-04-05] MEDS: 0.9% Saline Lock 10 ML Syringe IV (23:29)
[2024-04-05] MEDS: 0.9% Normal Saline (100mL Bag) 100 ML 15 ML IV (23:32)
[2024-04-05] MEDS: Piperacil/Tazobactam 3.375 GM in 0.9% Normal Saline (50mL MB+) 50 ML IV (23:34)
[2024-04-06] VITALS (13 sets, daily range): BP systolic 111–146; BP diastolic 54–73; PULSE 67–75; RESP 16–22; TEMP 36.8–39.1; O2SAT 94–97
[2024-04-06] MEDS: Piperacil/Tazobactam 3.375 GM in 0.9% Normal Saline (50mL MB+) 50 ML IV ×2 (05:11→13:58)
[2024-04-06] MEDS: Acetaminophen 500 MG Tablet 1000 MG PO ×3 (05:49→23:01)
[2024-04-06] MEDS: Ensure Plus High Protein 120 ML LIQUID PO (08:06)
[2024-04-06] MEDS: Gabapentin 600 MG Tablet PO ×2 (08:06→17:03)
[2024-04-06] MEDS: Ascorbic Acid 500 MG Tablet 1000 MG PO (08:07)
[2024-04-06] MEDS: Menthol/Lanolin/Calamine/Znox 113 GM Tube 1 APPLIC TOPICAL ×2 (08:08→22:54)
[2024-04-06] MEDS: Potassium Chloride Oral Tablet 20 MEQ PO (08:08)
[2024-04-06] MEDS: Carvedilol 12.5 MG Tablet PO ×2 (08:08→17:04)
[2024-04-06] MEDS: Lactobacillis Acidophilus 1 CAP PO ×2 (08:08→22:54)
[2024-04-06] MEDS: Losartan Potassium 100 MG Tablet PO (08:10)
[2024-04-06] MEDS: Senna/Docusate Sodium 1 Tablet 2 TABLET PO ×2 (08:10→22:56)
[2024-04-06] MEDS: Methenamine Hippurate 1 GM Tablet PO ×2 (08:10→22:55)
[2024-04-06] MEDS: APIXABAN 5 MG TABLET PO ×2 (08:10→22:55)
[2024-04-06] MEDS: Cholecalciferol (VIT D3) 25 MCG TABLET (1,000 UNITS) PO (08:11)
[2024-04-06] MEDS: 0.9% Saline Lock 10 ML Syringe IV ×2 (13:54→23:04)
--- NOTE | 2024-04-06 16:07 | CHAPLAIN ---
Type of Pastoral Visit _x__ Initial Visit _x__ Follow-up Visit ___ On-call Visit ___ General Patient Visit ___ Spiritual Assessment ___ Family Conference ___ Bereavement ___ Rapid Response ___ Code Blue ___ Other (describe below) Pastoral Care Referral From _x__ Patient _x__ Family ___ Nurse ___ Physician ___ Voice Data Communications Engineer ___ Natural Science Manager ___ Other (describe below) Sacrament/Intervention _x__ Active listening ___ Anointing ___ Catholic ___ Bereavement ___ Communion ___ Angie exploration ___ ___ Life review ___ Prayer ___ Reconciliation ___ Sacrament of Sick _x__ Supportive presence ___ Wedding ___ Other (describe below) Pastoral Comments patient is in the wheelchair and napping but easily awakened today to his name; pt responds about 'where is my ?'; pt does attempt to make conversation but struggles to get his words out; patient is affirmed and spoken to with words of hope and encouragement; pt continues to speak with some difficulty; then four friends enter the room and patient calls them by name and states again about 'I think my is here somewhere' quite clearly; offered supportive words and then gave visitors time to see the patient
--- NOTE | 2024-04-06 17:10 | NURSING ---
PT REALLY TIRED TODAY. WHEEZING,DRY COUGH, CHILLS AND TEMP, URINE CLOUDY,STRAW WITH SEDIMENT . EATING NORMAL, REST OF VITALS WNL. PRN TYLENOL GIVEN,RN AWARE AND NOTE LEFT FOR TO LOOK AT PT. WILL CONTINUE TO MONITOR.
--- NOTE | 2024-04-06 18:49 | RAD_ITS ---
INDICATION: wheezing EXAMINATION/TECHNIQUE: X-RAY - XR Chest 2 Views COMPARISON: 02/21/2024 FINDINGS: The lungs are clear. Tortuous and calcified thoracic aorta. The heart is mildly enlarged. Left-sided cardiac device. Trace left pleural effusion. No pneumothorax. Degenerative changes of the thoracic spine. RAD/Chest PA and Lateral IMPRESSION: Trace left pleural effusion. Electronically Signed: Francisco Davis MD at 19:55 EST ,
--- NOTE | 2024-04-06 20:58 | NURSING ---
Addendum entered by Tunde Daley 04/06/24 23:03: Dr. Gallardo responded OK thank you for update. Original Note: CXR results called to Dr. Gallardo.
--- NOTE | 2024-04-06 21:33 | NURSING ---
Patients updated on CXR results.
[2024-04-06] MEDS: Citalopram 20 MG Tablet PO (22:55)
[2024-04-06] MEDS: Tamsulosin HCl 0.4 MG Capsule PO (22:55)
[2024-04-06] MEDS: 0.9% Normal Saline (100mL Bag) 100 ML 15 ML IV (23:04)
[2024-04-06] MEDS: Meropenem 1 GM in 0.9% Normal Saline (100mL MB+) 100 ML IV (23:05)
[2024-04-06] MEDS: Albuterol 2.5 MG/3 ML VIAL.NEB. INHALATION (23:18)
--- NOTE | 2024-04-06 23:18 | NURSING ---
Lab called to update that respiratory panel too old to use, respiratory staff, [place] updated to recollect.
--- NOTE | 2024-04-06 23:20 | NURSING ---
Patient requested PRN breathing Tx. respiratory updated and administered PRN breathing Tx.
--- NOTE | 2024-04-06 23:30 | NURSING ---
IV Merrem infusing per order, no adverse effects observed or reported. No n/v/d/, no rash, no SOB. Denies requests. No distress observed or reported. Call light in reach.
[2024-04-07] VITALS (11 sets, daily range): BP systolic 129–140; BP diastolic 61–68; PULSE 61–74; RESP 16–24; TEMP 36.9–37.8; O2SAT 93–94
[2024-04-07] MEDS: Albuterol 2.5 MG/3 ML VIAL.NEB. INHALATION ×2 (01:23→08:16)
[2024-04-07] MEDS: 0.9% Normal Saline (100mL Bag) 100 ML 15 ML IV (05:02)
[2024-04-07] MEDS: Meropenem 1 GM in 0.9% Normal Saline (100mL MB+) 100 ML IV ×3 (05:05→22:10)
[2024-04-07] MEDS: 0.9% Saline Lock 10 ML Syringe IV (05:06)
[2024-04-07] MEDS: Acetaminophen 500 MG Tablet 1000 MG PO ×2 (05:08→13:57)
--- NOTE | 2024-04-07 06:17 | NURSING ---
, Nuzhat called in and was updated on patient condition through out the night, updated on temp of 99.1 and PRN Tylenol given, temp recheck 98.9, and temp of 99.6 and PRN Tylenol given, temp recheck 98.5, and x1 incontinent loose stool this AM, and patient awake and talkative with staff this AM. states that she will be in later this AM to visit.
--- NOTE | 2024-04-07 08:28 | MDS.RN ---
Information for the MDS was obtained from review of the clinical record, interview of resident, staff, and direct observation of resident?s care.
[2024-04-07] MEDS: Lactobacillis Acidophilus 1 CAP PO ×2 (08:57→22:03)
[2024-04-07] MEDS: Potassium Chloride Oral Tablet 20 MEQ PO (08:57)
[2024-04-07] MEDS: Menthol/Lanolin/Calamine/Znox 113 GM Tube 1 APPLIC TOPICAL ×2 (08:57→22:12)
[2024-04-07] MEDS: Carvedilol 12.5 MG Tablet PO ×2 (08:57→17:29)
[2024-04-07] MEDS: Cholecalciferol (VIT D3) 25 MCG TABLET (1,000 UNITS) PO (08:59)
[2024-04-07] MEDS: Methenamine Hippurate 1 GM Tablet PO ×2 (08:59→22:04)
[2024-04-07] MEDS: Losartan Potassium 100 MG Tablet PO (08:59)
[2024-04-07] MEDS: APIXABAN 5 MG TABLET PO ×2 (08:59→22:04)
[2024-04-07] MEDS: Senna/Docusate Sodium 1 Tablet 2 TABLET PO ×2 (08:59→22:05)
[2024-04-07] MEDS: Gabapentin 600 MG Tablet PO ×2 (09:01→17:29)
--- NOTE | 2024-04-07 11:10 | NURSING ---
PT LEFT FLOOR BY BED AT [address] SCAN OF PELVIS AND ABDOMINAL [place] ORDER. RETURNED TO FLOOR AT 1050.
[2024-04-07] MEDS: Ascorbic Acid 500 MG Tablet 1000 MG PO (11:13)
[2024-04-07] MEDS: Ensure Plus High Protein 120 ML LIQUID PO ×2 (13:58→17:29)
--- NOTE | 2024-04-07 14:10 | NURSING ---
PT BACK FROM THERAPY,THERAPY REPORTED TO THIS NURSE THAT PT WASN'T FEELING GOOD. WHEN ENTERED ROOM PT WAS COVERED UP HEAD TO TOE WITH BLANKET AND SHIVERING. ASKED PT WHAT WAS WRONG PT STATED SHEEBA COLD AND DON'T FEEL WELL. TEMP 100.1,PRN TYLENOL GIVEN. PT STILL WHEEZING,CHEST X RAY DONE,NO NEW ORDERS. STILL WAITING ON BLOOD CULTURE RESULTS AND CT OF PELVIS/ABDOMINAL SCAN. ON FLOOR AND REPORTED TO HIM. RN AWARE
[2024-04-07] MEDS: Tamsulosin HCl 0.4 MG Capsule PO (22:04)
[2024-04-07] MEDS: Citalopram 20 MG Tablet PO (22:05)
[2024-04-08 02:28] VITALS: BP 158/75; PULSE 75; RESP 18; TEMP 37.9
[2024-04-08] MEDS: Acetaminophen 500 MG Tablet 1000 MG PO (02:28)
--- NOTE | 2024-04-08 02:30 | NURSING ---
Bladder scan for 3mL to ensure starr was draining. 500mL of cloudy straw-colored urine emptied from starr bag.
--- NOTE | 2024-04-08 04:00 | NURSING ---
At 2114 on 04/07/24 physician notified of critical reported from ABD CT regarding starr placement; balloon inflated in prostate. Starr placement corrected and 450cc of strong smelling urine drained immediately. Pt is currently on Merrem 1g q8h IV. No new orders at this time.
[2024-04-08] MEDS: Meropenem 1 GM in 0.9% Normal Saline (100mL MB+) 100 ML IV (05:07)
[2024-04-08 07:45] VITALS: BP 138/70; PULSE 61; RESP 16; TEMP 36.5; O2SAT 96
[2024-04-08] MEDS: Potassium Chloride Oral Tablet 20 MEQ PO (07:56)
[2024-04-08] MEDS: Losartan Potassium 100 MG Tablet PO (07:56)
[2024-04-08] MEDS: Carvedilol 12.5 MG Tablet PO ×2 (07:56→18:00)
[2024-04-08] MEDS: Ensure Plus High Protein 120 ML LIQUID PO ×3 (07:56→18:04)
[2024-04-08] MEDS: Senna/Docusate Sodium 1 Tablet 2 TABLET PO ×2 (07:57→23:26)
[2024-04-08] MEDS: APIXABAN 5 MG TABLET PO ×2 (07:57→23:26)
[2024-04-08] MEDS: Menthol/Lanolin/Calamine/Znox 113 GM Tube 1 APPLIC TOPICAL ×2 (07:57→23:27)
[2024-04-08] MEDS: Methenamine Hippurate 1 GM Tablet PO ×2 (07:57→23:26)
[2024-04-08] MEDS: Cholecalciferol (VIT D3) 25 MCG TABLET (1,000 UNITS) PO (07:57)
[2024-04-08] MEDS: Gabapentin 600 MG Tablet PO ×2 (07:57→18:00)
[2024-04-08] MEDS: Lactobacillis Acidophilus 1 CAP PO ×2 (07:57→23:26)
--- NOTE | 2024-04-08 11:27 | NURSING ---
Preliminary UA/C&S shows Pseudomonas Fluorescens. Dr. Gallardo gave new order. 1) D/C Merrem 2) IV Zosyn q8 hours. 3) Consult Dr. Doshi on Wednesday04/10/24 for suprapubic cath. Patient and spouse aware of new orders.
[2024-04-08] MEDS: Ascorbic Acid 500 MG Tablet 1000 MG PO (12:40)
[2024-04-08] MEDS: Piperacil/Tazobactam 3.375 GM in 0.9% Normal Saline (50mL MB+) 50 ML IV ×2 (14:22→23:11)
[2024-04-08 14:27] VITALS: TEMP 37.1
[2024-04-08] MEDS: 0.9% Saline Lock 10 ML Syringe IV (23:10)
[2024-04-08] MEDS: Citalopram 20 MG Tablet PO (23:26)
[2024-04-08] MEDS: Tamsulosin HCl 0.4 MG Capsule PO (23:26)
[2024-04-09] MEDS: Piperacil/Tazobactam 3.375 GM in 0.9% Normal Saline (50mL MB+) 50 ML IV ×3 (05:13→20:46)
[2024-04-09 06:46] VITALS: TEMP 37.2
--- NOTE | 2024-04-09 06:50 | NURSING ---
Spouse, Nuzhat, calls into unit requesting how resident slept and what his temp was during the night. Informed her resident slept well and updated on temp taken this am.
[2024-04-09 08:51] VITALS: BP 155/92; PULSE 65; RESP 16; TEMP 37.1; O2SAT 95
[2024-04-09] MEDS: Carvedilol 12.5 MG Tablet PO ×2 (08:54→17:30)
[2024-04-09] MEDS: APIXABAN 5 MG TABLET PO ×2 (08:55→20:50)
[2024-04-09] MEDS: Lactobacillis Acidophilus 1 CAP PO ×2 (08:55→20:50)
[2024-04-09] MEDS: Menthol/Lanolin/Calamine/Znox 113 GM Tube 1 APPLIC TOPICAL ×2 (08:55→20:53)
[2024-04-09] MEDS: Potassium Chloride Oral Tablet 20 MEQ PO (08:55)
[2024-04-09] MEDS: Losartan Potassium 100 MG Tablet PO (08:55)
[2024-04-09] MEDS: Methenamine Hippurate 1 GM Tablet PO ×2 (08:56→20:51)
[2024-04-09] MEDS: Senna/Docusate Sodium 1 Tablet 2 TABLET PO ×2 (08:56→20:51)
[2024-04-09] MEDS: Cholecalciferol (VIT D3) 25 MCG TABLET (1,000 UNITS) PO (08:56)
[2024-04-09] MEDS: Ensure Plus High Protein 120 ML LIQUID PO ×3 (08:59→17:31)
[2024-04-09] MEDS: Gabapentin 600 MG Tablet PO ×2 (08:59→17:30)
[2024-04-09] MEDS: Ascorbic Acid 500 MG Tablet 1000 MG PO (13:42)
[2024-04-09] MEDS: 0.9% Saline Lock 10 ML Syringe IV ×2 (14:44→20:46)
[2024-04-09 17:26] VITALS: BP 164/77; PULSE 70
[2024-04-09] MEDS: Tamsulosin HCl 0.4 MG Capsule PO (20:51)
[2024-04-09] MEDS: Citalopram 20 MG Tablet PO (20:51)
[2024-04-10] MEDS: 0.9% Saline Lock 10 ML Syringe IV ×2 (05:07→23:13)
[2024-04-10] MEDS: Piperacil/Tazobactam 3.375 GM in 0.9% Normal Saline (50mL MB+) 50 ML IV ×3 (05:08→23:18)
[2024-04-10] MEDS: 0.9% Normal Saline (100mL Bag) 100 ML 15 ML IV ×2 (05:09→14:37)
[2024-04-10] MEDS: Ensure Plus High Protein 120 ML LIQUID PO ×3 (07:56→17:15)
[2024-04-10] MEDS: Losartan Potassium 100 MG Tablet PO (07:57)
[2024-04-10] MEDS: Methenamine Hippurate 1 GM Tablet PO ×2 (07:57→23:21)
[2024-04-10] MEDS: Cholecalciferol (VIT D3) 25 MCG TABLET (1,000 UNITS) PO (07:57)
[2024-04-10] MEDS: Menthol/Lanolin/Calamine/Znox 113 GM Tube 1 APPLIC TOPICAL ×2 (07:57→23:19)
[2024-04-10] MEDS: Potassium Chloride Oral Tablet 20 MEQ PO (07:57)
[2024-04-10] MEDS: Gabapentin 600 MG Tablet PO ×2 (07:57→17:15)
[2024-04-10] MEDS: Senna/Docusate Sodium 1 Tablet 2 TABLET PO ×2 (07:57→23:21)
[2024-04-10] MEDS: Carvedilol 12.5 MG Tablet PO ×2 (07:57→17:15)
[2024-04-10] MEDS: Lactobacillis Acidophilus 1 CAP PO ×2 (07:57→23:19)
[2024-04-10] MEDS: APIXABAN 5 MG TABLET PO ×2 (07:57→23:20)
[2024-04-10 08:00] VITALS: BP 157/85; PULSE 70; RESP 18; TEMP 37.2; O2SAT 95
--- NOTE | 2024-04-10 10:54 | NURSING ---
Call back from Dr. Doshi's office, they report physician will not do SP cath, no reason given.
[2024-04-10] MEDS: Ascorbic Acid 500 MG Tablet 1000 MG PO (12:06)
--- NOTE | 2024-04-10 12:14 | PCM.CONS.U ---
HPI Consult Data Date of Consult: 04/10/24 HPI Narrative Reason for Consultation: Recurrent urinary tract infections HPI Narrative: DANNY AQUINO, is a 78 M who presents to rehab for strengthening and improving after being in the hospital for an infection he has a neurogenic bladder history of spinal cord injury he has been seen in the office for follow-up initially he was managing his catheter in the bladder with condom catheter during the daytime and night catheter at night but now is gone to chronic Mejía catheter. I was consulted in regards to this whether a suprapubic catheter would offer any benefit. I explained to the patient that suprapubic catheter will not prevent UTIs he will be at higher risk or just the same risk for getting UTIs with a regular catheter and a suprapubic catheter that suprapubic catheter will not prevent UTIs. Also the risk of the procedure the risk of bleeding infection chronic cystitis and bladder stone formations were discussed with the patient. I think at this point he has a continue with Mejía catheter management per his wishes. Daily flushing with sterile water can help lower the risk of infections. After discussing with patient all his questions were addressed he can follow-up with me as an outpatient. 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 Depression Hypertension Atrial fibrillation Anterior communicating artery aneurysm Atrial fibrillation History of DVT (deep vein thrombosis) AAA (abdominal aortic aneurysm) without rupture Sick sinus syndrome Family history of hypertension History of spinal cord injury Paraplegia Premature ventricular contractions BPH (benign prostatic hypertrophy) Depression Cervical spinal stenosis Spinal cord injury Neurogenic bladder Degenerative joint disease (DJD) of lumbar spine Anemia Central cord syndrome Subluxation of C6-C7 cervical vertebrae 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.9) Home Medications ?Medication ?Instructions ?Recorded ?Last Taken ?Type ascorbic acid (vitamin C) 500 mg 1,000 mg PO LUNCH supplement 08/17/21 02/11/24 History tablet tamsulosin 0.4 mg capsule 0.4 mg PO QHS Urine retention 30 09/03/21 02/27/24 21:10 Rx days #30 caps 0.4 mg citalopram 20 mg tablet 20 mg PO QHS depression 12/04/21 02/27/24 21:10 History 20 mg carvedilol 12.5 mg tablet 12.5 mg PO BID BP 02/12/24 02/28/24 08:20 History 12.5 mg cholecalciferol (vitamin D3) 25 25 mcg PO DAILY supplement 02/12/24 Unknown History mcg (1,000 unit) capsule vitamin E 180 mg PO DAILY supplement 02/12/24 02/11/24 History docusate sodium 283 mg/5 mL enema 283 mg OR BID constipation 02/13/24 02/27/24 17:00 History (Enemeez) 283 mg potassium chloride 10 mEq 20 meq (2 x 10 mEq) PO DAILYCM 02/17/24 Unknown Rx tablet,extended release(part/cryst) hypokalemia #60 tabs gabapentin 600 mg tablet 600 mg PO BID nerve pain 02/21/24 02/28/24 09:45 History 600 mg methenamine hippurate 1 gram tablet 1 g PO BID urinary 30 days #60 tabs 02/28/24 Unknown Rx apixaban 5 mg tablet (Eliquis) 5 mg PO BID blood thinner #180 tabs 03/14/24 Unknown Rx piperacillin-tazobactam 3.375 3.375 g (56.25 mL) IV Q8H 03/27/24 Unknown Rx gram/50 mL dextrose(iso-os) IV bacteremia/UTI 4 days piggyback (Zosyn) sennosides 8.6 mg-docusate sodium 2 tab PO BID stool softener #0 tabs 03/27/24 Unknown Rx 50 mg tablet (Stimulant Laxative Plus) Allergy/AdvReac Type Severity Reaction Status Date / Time ceftriaxone Allergy Rash Verified 03/23/24 13:06 ciprofloxacin (From Cipro) Allergy Hives Verified 03/23/24 13:06 sulfamethoxazole (From Allergy PT UNSURE Verified 03/23/24 13:06 Bactrim) OF REACTION trimethoprim (From Bactrim) Allergy PT UNSURE Verified 03/23/24 13:06 OF REACTION Family History Mother Breast cancer Cancer Brain cancer Sister Diabetes Hypertension CHF (congestive heart failure) Kidney disease Sister CHF (congestive heart failure) Cardiac defibrillator in situ Other Family history of hypertension Surgical History History of neck surgery History of permanent cardiac pacemaker placement S/P cervical spinal fusion Social History household members: spouse Smoking Status: Never smoker alcohol intake: current alcohol intake frequency: holidays/special occasions only Alcohol type: wine substance use type: does not use caffeine: Yes Type: coffee Number of servings: 1 what type of physical activity do you participate in: other details: Health point frequency: 1-2 times per week duration: 45-60 minutes/day seatbelt use: always do you feel safe at home: Yes Lab / Micro Data 04/05/24 18:05 04/05/24 18:05 Micro: Microbiology 04/05/24 17:10 Urine Catheter - Mejía Urine Culture - Final Pseudomonas fluorescens
--- NOTE | 2024-04-10 12:54 | PCM.PN.ID ---
Physical Exam Narrative Had syncope 04/05. Zosyn restarted, cxs sent, CT repeated. Feeling ok now, no fever, no abd pain. Const alert and no apparent distress Resp normal air movement and clear to auscultation bilaterally Cardio regular rate and regular rhythm GI soft to palpation, non-tender and non-distended Skin no rashes or lesions noted ID ID: Route of nutrition/ use of supplements: [] Nutritional Intake: [] IV Site: [] Mejía Catheter: [] Assessment & Plan Assessment/Plan (1) Neurogenic bladder: (2) Recurrent UTI: PLAN: Ucx now with Pseudomonas fluorescens, I to zosyn, S to levaquin but pt with cipro allergy. Feeling better, wbc normal, no abd pain, no fever. CT did show stone in place, will consult urology for eval given recurrent infections and progressive abx resistance. Will follow
--- NOTE | 2024-04-10 15:33 | CHAPLAIN ---
Type of Pastoral Visit ___ Initial Visit ___ Follow-up Visit ___ On-call Visit ___ General Patient Visit ___ Spiritual Assessment ___ Family Conference ___ Bereavement ___ Rapid Response ___ Code Blue ___ Other (describe below) Pastoral Care Referral From ___ Patient ___ Family ___ Nurse ___ Physician ___ Camp Attendant ___ Fast Food Supervisor ___ Other (describe below) Sacrament/Intervention ___ Active listening ___ Anointing ___ Holiness ___ Bereavement ___ Communion ___ Angie exploration ___ ___ Life review ___ Prayer ___ Reconciliation ___ Sacrament of Sick ___ Supportive presence ___ Wedding ___ Other (describe below) Pastoral Comments upon doing rounds in the TCU this openstack developer is approached in the hallway by the spouse of this patient; the patient is sitting in the activity room for now; spouse wants to talk about her husbands situation, his mental/emotional status, reactions of the family members, and their angie in God and need of direction; listening and supportive presence given; pt is then taking himself in wheelchair to the therapy room and is offered support and encouraging words
--- NOTE | 2024-04-10 16:47 | MDS.RN ---
dr doshi saw pt today, recommending to continue with starr & flush starr cath daily to reduce infection risk. dr Stuart saw pt as well and consulted dr doshi regarding non obstructing stone per CT scan & recurrent UTIs. paged Dr Doshi via flange machine operator @ [phone], no return call as of yet.
--- NOTE | 2024-04-10 17:39 | NURSING ---
New order received from Dr. Gallardo- 1) Flush starr cath with 60cc of sterile water daily. Patient and spouse aware.
[2024-04-10 23:00] VITALS: PULSE 66; O2SAT 93
[2024-04-10] MEDS: Citalopram 20 MG Tablet PO (23:20)
[2024-04-10] MEDS: Tamsulosin HCl 0.4 MG Capsule PO (23:21)
[2024-04-11] MEDS: Piperacil/Tazobactam 3.375 GM in 0.9% Normal Saline (50mL MB+) 50 ML IV ×3 (05:05→21:00)
[2024-04-11] MEDS: Gabapentin 600 MG Tablet PO ×2 (07:51→17:52)
[2024-04-11] MEDS: Ensure Plus High Protein 120 ML LIQUID PO ×2 (07:51→17:50)
[2024-04-11] MEDS: Lactobacillis Acidophilus 1 CAP PO ×2 (07:52→21:01)
[2024-04-11] MEDS: Losartan Potassium 100 MG Tablet PO (07:52)
[2024-04-11] MEDS: Carvedilol 12.5 MG Tablet PO ×2 (07:52→17:49)
[2024-04-11] MEDS: Potassium Chloride Oral Tablet 20 MEQ PO (07:52)
[2024-04-11] MEDS: Methenamine Hippurate 1 GM Tablet PO ×2 (07:53→21:01)
[2024-04-11] MEDS: Menthol/Lanolin/Calamine/Znox 113 GM Tube 1 APPLIC TOPICAL ×2 (07:53→21:01)
[2024-04-11] MEDS: APIXABAN 5 MG TABLET PO ×2 (07:53→21:01)
[2024-04-11] MEDS: Senna/Docusate Sodium 1 Tablet 2 TABLET PO ×2 (07:54→21:02)
[2024-04-11] MEDS: Cholecalciferol (VIT D3) 25 MCG TABLET (1,000 UNITS) PO (07:54)
[2024-04-11 07:58] VITALS: BP 150/83; PULSE 59; RESP 16; O2SAT 94
[2024-04-11 08:08] LABS: Absolute Lymphocyte Count 0.81 X10^3/uL (0.83-4.51); Absolute Neutrophil Count 1.6 X10^3/uL (2.0-7.7); Basophil# 0.01 X10^3/uL; Basophil% 0.3 % (0-1); Eosinophil# 0.11 X10^3/uL; Eosinophils% 3.8 % (0-5); Hematocrit 30.8 % (40-54); Hemoglobin 9.9 g/dL (13.0-16.5); Lymphocyte # 0.81 X10^3/ul (0.83-4.51); Lymphocyte % 27.6 % (19-41); Mean Corp Hgb Conc 32.1 g/dL (32-36); Mean Corpuscular Hgb 27.9 pg (27.0-32.0); Mean Corpuscular Volume 86.8 fL (80-94); Mean Platelet Vol. 10.3 fl (6.2-12.0); Monocyte% 13.7 % (0-10); NRBC Flagged by Analyzer 0 % (0-5); Neutrophil # 1.59 X10^3/uL (2.7-7.7); Neutrophil % 54.3 % (47-70); Platelet Count 124 K/mm3 (150-450); RBC Distribution Width CV 15.6 % (11.6-14.6); RBC Distribution Width SD 49.6 fl (35.1-43.9); Red Blood Count 3.55 M/mm3 (4.6-6.2); White Blood Count 2.9 K/mm3 (4.4-11.0)
[2024-04-11 09:18] LABS: Anion Gap 9 (5-15); BUN 14 mg/dL (7-18); BUN/Creat Ratio 15.1 RATIO (10-20); Calcium,Total 8.7 mg/dL (8.5-10.1); Chloride 111 mmol/L (98-107); Creatinine, Serum 0.93 mg/dL (0.70-1.30); EST Glomerular Filtration Rate 84 mL/min (>60); Est Glom Filt Rate - Afr Amer 102 mL/min (>60); Glucose 88 mg/dL (74-106); Potassium 3.3 mmol/L (3.5-5.1); Sodium Level 139 mmol/L (136-145)
[2024-04-11 10:20] VITALS: PULSE 59; RESP 18; O2SAT 94
--- NOTE | 2024-04-11 10:55 | NURSING ---
AGUILAR FLUSHED 60 CC PER ORDER,PT TOLERATED WELL.
[2024-04-11] MEDS: Ascorbic Acid 500 MG Tablet 1000 MG PO (12:01)
[2024-04-11 14:00] VITALS: BMI 34.0
[2024-04-11] MEDS: Acetaminophen 500 MG Tablet 1000 MG PO (14:49)
[2024-04-11 14:57] VITALS: TEMP 36.9
[2024-04-11] MEDS: Potassium Chloride Oral Tablet 20 MEQ 40 MEQ PO (17:52)
[2024-04-11 17:56] VITALS: BP 163/89; PULSE 71
[2024-04-11] MEDS: 0.9% Saline Lock 10 ML Syringe IV (20:57)
[2024-04-11] MEDS: Citalopram 20 MG Tablet PO (21:01)
[2024-04-11] MEDS: Tamsulosin HCl 0.4 MG Capsule PO (21:01)
[2024-04-11] MEDS: Nystatin Powder 15gm Bottle 1 APPLIC TOPICAL (21:08)
[2024-04-12] MEDS: 0.9% Saline Lock 10 ML Syringe IV ×4 (01:56→21:01)
[2024-04-12] MEDS: 0.9% Normal Saline (100mL Bag) 100 ML 15 ML IV (02:01)
[2024-04-12] MEDS: Piperacil/Tazobactam 3.375 GM in 0.9% Normal Saline (50mL MB+) 50 ML IV ×3 (05:07→21:00)
[2024-04-12 05:48] LABS: Absolute Lymphocyte Count 0.67 X10^3/uL (0.83-4.51); Basophil# 0.01 X10^3/uL; Basophil% 0.3 % (0-1); Eosinophil# 0.14 X10^3/uL; Eosinophils% 4.5 % (0-5); Hematocrit 29.8 % (40-54); Lymphocyte # 0.67 X10^3/ul (0.83-4.51); Lymphocyte % 21.3 % (19-41); Mean Corp Hgb Conc 33.6 g/dL (32-36); Mean Corpuscular Hgb 28.4 pg (27.0-32.0); Mean Corpuscular Volume 84.7 fL (80-94); Mean Platelet Vol. 10.3 fl (6.2-12.0); Monocyte# 0.32 X10^3/uL; Monocyte% 10.2 % (0-10); NRBC Flagged by Analyzer 0 % (0-5); Neutrophil # 1.98 X10^3/uL (2.7-7.7); Neutrophil % 63.1 % (47-70); Platelet Count 125 K/mm3 (150-450); RBC Distribution Width CV 15.5 % (11.6-14.6); RBC Distribution Width SD 47.8 fl (35.1-43.9); Red Blood Count 3.52 M/mm3 (4.6-6.2); White Blood Count 3.1 K/mm3 (4.4-11.0)
[2024-04-12 06:14] LABS: Anion Gap 9 (5-15); BUN 15 mg/dL (7-18); BUN/Creat Ratio 15.7 RATIO (10-20); Calcium,Total 8.5 mg/dL (8.5-10.1); Chloride 110 mmol/L (98-107); Creatinine, Serum 0.96 mg/dL (0.70-1.30); EST Glomerular Filtration Rate 81 mL/min (>60); Est Glom Filt Rate - Afr Amer 98 mL/min (>60); Estimated Creatinine Clearance 78.95 ml/min; Glucose 90 mg/dL (74-106); Potassium 3.6 mmol/L (3.5-5.1); Sodium Level 139 mmol/L (136-145)
[2024-04-12] MEDS: Carvedilol 12.5 MG Tablet PO ×2 (07:43→17:33)
[2024-04-12] MEDS: Potassium Chloride Oral Tablet 20 MEQ PO (07:43)
[2024-04-12] MEDS: Gabapentin 600 MG Tablet PO ×2 (07:44→17:35)
[2024-04-12] MEDS: Losartan Potassium 100 MG Tablet PO (07:45)
[2024-04-12] MEDS: Senna/Docusate Sodium 1 Tablet 2 TABLET PO ×2 (07:45→20:12)
[2024-04-12] MEDS: Cholecalciferol (VIT D3) 25 MCG TABLET (1,000 UNITS) PO (07:45)
[2024-04-12] MEDS: APIXABAN 5 MG TABLET PO ×2 (07:46→20:12)
[2024-04-12] MEDS: Nystatin Powder 15gm Bottle 1 APPLIC TOPICAL ×2 (07:46→20:10)
[2024-04-12] MEDS: Lactobacillis Acidophilus 1 CAP PO ×2 (07:46→20:11)
[2024-04-12] MEDS: Methenamine Hippurate 1 GM Tablet PO ×2 (07:46→20:12)
[2024-04-12] MEDS: Menthol/Lanolin/Calamine/Znox 113 GM Tube 1 APPLIC TOPICAL ×2 (07:47→20:11)
[2024-04-12 07:52] VITALS: BP 146/77; PULSE 66; RESP 16; O2SAT 94
[2024-04-12] MEDS: Acetaminophen 500 MG Tablet 1000 MG PO (11:54)
[2024-04-12] MEDS: Ascorbic Acid 500 MG Tablet 1000 MG PO (11:54)
--- NOTE | 2024-04-12 13:23 | PCM.PN.ID ---
Physical Exam Narrative Feeling better. No fever, no abd pain. Seen by urology. Const alert and no apparent distress General Appearance: cooperative Resp normal air movement and clear to auscultation bilaterally Cardio regular rate and regular rhythm GI soft to palpation, non-tender and non-distended Skin no rashes or lesions noted ID ID: Route of nutrition/ use of supplements: [] Nutritional Intake: [] IV Site: [] Mejía Catheter: [] Assessment & Plan Assessment/Plan (1) Neurogenic bladder: (2) Recurrent UTI: PLAN: Ucx now with Pseudomonas fluorescens, I to zosyn, S to levaquin but pt with cipro allergy. Feeling better, wbc normal, no abd pain, no fever. CT did show stone in place, seen by urology, outpt followup planned. Will cont zosyn, plan on stop date 04/22 given recurrent infection. Will follow
[2024-04-12] MEDS: Ensure Plus High Protein 120 ML LIQUID PO ×2 (14:12→17:35)
[2024-04-12 15:10] VITALS: TEMP 36.3
--- NOTE | 2024-04-12 16:55 | NURSING ---
IN TO SEE PT TODAY. ZOSYN EXTENDED TO 04/22/24. WILL CONTINUE TO FOLLOW.
[2024-04-12 17:37] VITALS: BP 161/82; PULSE 58
--- NOTE | 2024-04-12 18:40 | NURSING ---
AGUILAR FLUSHED 60 CC PER ORDER. PT TOLERATED WELL.
[2024-04-12] MEDS: Citalopram 20 MG Tablet PO (20:11)
[2024-04-12] MEDS: Tamsulosin HCl 0.4 MG Capsule PO (20:12)
[2024-04-12 20:32] VITALS: PULSE 67; RESP 16; O2SAT 96
[2024-04-13] MEDS: Piperacil/Tazobactam 3.375 GM in 0.9% Normal Saline (50mL MB+) 50 ML IV ×3 (05:09→22:48)
[2024-04-13] MEDS: Nystatin Powder 15gm Bottle 1 APPLIC TOPICAL ×2 (08:07→19:54)
[2024-04-13] MEDS: Gabapentin 600 MG Tablet PO ×2 (08:07→17:45)
[2024-04-13] MEDS: Menthol/Lanolin/Calamine/Znox 113 GM Tube 1 APPLIC TOPICAL ×2 (08:09→19:53)
[2024-04-13] MEDS: Carvedilol 12.5 MG Tablet PO ×2 (08:09→18:03)
[2024-04-13] MEDS: APIXABAN 5 MG TABLET PO ×2 (08:10→19:54)
[2024-04-13] MEDS: Potassium Chloride Oral Tablet 20 MEQ PO (08:10)
[2024-04-13] MEDS: Lactobacillis Acidophilus 1 CAP PO ×2 (08:10→19:53)
[2024-04-13] MEDS: Losartan Potassium 100 MG Tablet PO (08:10)
[2024-04-13] MEDS: Methenamine Hippurate 1 GM Tablet PO ×2 (08:11→19:54)
[2024-04-13] MEDS: Senna/Docusate Sodium 1 Tablet 2 TABLET PO ×2 (08:11→19:54)
[2024-04-13] MEDS: Cholecalciferol (VIT D3) 25 MCG TABLET (1,000 UNITS) PO (08:11)
[2024-04-13 08:15] VITALS: BP 152/77; PULSE 67; RESP 18; O2SAT 93
[2024-04-13] MEDS: 0.9% Normal Saline (100mL Bag) 100 ML 15 ML IV (09:04)
[2024-04-13] MEDS: 0.9% Saline Lock 10 ML Syringe IV ×2 (11:16→22:47)
[2024-04-13 11:20] VITALS: PULSE 67; RESP 16; O2SAT 93
[2024-04-13] MEDS: Ascorbic Acid 500 MG Tablet 1000 MG PO (11:27)
[2024-04-13] MEDS: Acetaminophen 500 MG Tablet 1000 MG PO (11:28)
[2024-04-13 16:00] VITALS: TEMP 36.7
--- NOTE | 2024-04-13 17:04 | NURSING ---
ORDER FOR PICC FROM . PT AND UPDATED ON NEW ORDER AND STATED THEY UNDER STOOD. PICC PLACED IN RT UPPER ARM BY LITIGATION COUNSEL. SINGLE LUMEN,4 KYRGYZ,41CM/0CM SHOWING. AGUILAR FLUSHED 60CC PER ORDER. PT TOLERATED WELL. NO DRAINAGE NOTED FROM AGUILAR INSERTION SITE. PT REQUESTING SCHEDULED TYLENOL AT 12 NOON BEFORE THERAPY. NOTE LEFT FOR .
[2024-04-13] MEDS: Ensure Plus High Protein 120 ML LIQUID PO (17:45)
[2024-04-13 18:08] VITALS: BP 166/81; PULSE 71
[2024-04-13] MEDS: Tamsulosin HCl 0.4 MG Capsule PO (19:54)
[2024-04-13] MEDS: Citalopram 20 MG Tablet PO (19:54)
[2024-04-14] MEDS: Piperacil/Tazobactam 3.375 GM in 0.9% Normal Saline (50mL MB+) 50 ML IV ×3 (05:33→20:56)
[2024-04-14] MEDS: Potassium Chloride Oral Tablet 20 MEQ PO (07:53)
[2024-04-14] MEDS: Cholecalciferol (VIT D3) 25 MCG TABLET (1,000 UNITS) PO (07:53)
[2024-04-14] MEDS: Gabapentin 600 MG Tablet PO ×2 (07:53→17:42)
[2024-04-14] MEDS: Carvedilol 12.5 MG Tablet PO ×2 (07:53→17:42)
[2024-04-14] MEDS: APIXABAN 5 MG TABLET PO ×2 (07:53→20:55)
[2024-04-14] MEDS: Methenamine Hippurate 1 GM Tablet PO ×2 (07:53→20:55)
[2024-04-14] MEDS: Ensure Plus High Protein 120 ML LIQUID PO ×3 (07:53→17:42)
[2024-04-14] MEDS: Losartan Potassium 100 MG Tablet PO (07:53)
[2024-04-14] MEDS: Senna/Docusate Sodium 1 Tablet 2 TABLET PO ×2 (07:53→20:55)
[2024-04-14] MEDS: Nystatin Powder 15gm Bottle 1 APPLIC TOPICAL ×2 (07:54→20:55)
[2024-04-14] MEDS: Menthol/Lanolin/Calamine/Znox 113 GM Tube 1 APPLIC TOPICAL ×2 (07:54→20:55)
[2024-04-14] MEDS: Lactobacillis Acidophilus 1 CAP PO ×2 (07:54→20:55)
[2024-04-14 08:00] VITALS: BP 155/83; PULSE 64; RESP 16; TEMP 36.8; O2SAT 93
[2024-04-14 11:45] LABS: Bedside Glucose 91 mg/dL (74-106)
--- NOTE | 2024-04-14 12:00 | NURSING ---
Staff assisting patient off bedside commode. Patient became diaphoretic and weak. Patient assisted into electric wheelchair and staff notified RN. Vital signs obtained and WNL. Staff reported patient had wet attend when assisting with AM care and thought Mejía was not working correctly. Mejía cath flushed with no return noted. Bladder scanned and noted >200. Dr. Gallardo notified of above incident. New order to replace Mejía cath. Patient assisted into bed via Bethany lift and x3 staff.
[2024-04-14 12:08] VITALS: BP 142/71; PULSE 57; RESP 18; TEMP 36.6; O2SAT 95
--- NOTE | 2024-04-14 12:09 | NURSING ---
Mejía cath changed at this time per orders. Sterile technique used to replace Mejía cath. New 18FR Mejía cath inserted and in place. Noted 400CC of clear, yellow urine immediately after insertion. Bladder scan x3 to ensure bladder was empty- noted 11ML residual. Vital signs obtained. BP 142/71 T97.9 P57 RR18 SPO2 95%.
[2024-04-14] MEDS: Acetaminophen 500 MG Tablet 1000 MG PO (12:24)
[2024-04-14] MEDS: Ascorbic Acid 500 MG Tablet 1000 MG PO (12:24)
[2024-04-14 20:50] VITALS: PULSE 58; O2SAT 96
[2024-04-14] MEDS: Tamsulosin HCl 0.4 MG Capsule PO (20:55)
[2024-04-14] MEDS: Citalopram 20 MG Tablet PO (20:55)
[2024-04-15] MEDS: Piperacil/Tazobactam 3.375 GM in 0.9% Normal Saline (50mL MB+) 50 ML IV ×3 (05:33→22:39)
[2024-04-15] MEDS: 0.9% Saline Lock 10 ML Syringe IV (05:34)
[2024-04-15] MEDS: Ensure Plus High Protein 120 ML LIQUID PO ×3 (08:13→17:16)
[2024-04-15] MEDS: Lactobacillis Acidophilus 1 CAP PO ×2 (08:17→22:39)
[2024-04-15] MEDS: Carvedilol 12.5 MG Tablet PO ×2 (08:17→17:16)
[2024-04-15] MEDS: Potassium Chloride Oral Tablet 20 MEQ PO (08:17)
[2024-04-15] MEDS: Gabapentin 600 MG Tablet PO ×2 (08:17→17:16)
[2024-04-15] MEDS: Losartan Potassium 100 MG Tablet PO (08:18)
[2024-04-15] MEDS: Cholecalciferol (VIT D3) 25 MCG TABLET (1,000 UNITS) PO (08:18)
[2024-04-15] MEDS: Nystatin Powder 15gm Bottle 1 APPLIC TOPICAL ×2 (08:18→22:40)
[2024-04-15] MEDS: Senna/Docusate Sodium 1 Tablet 2 TABLET PO ×2 (08:18→22:39)
[2024-04-15] MEDS: Methenamine Hippurate 1 GM Tablet PO ×2 (08:18→22:39)
[2024-04-15] MEDS: APIXABAN 5 MG TABLET PO ×2 (08:18→22:39)
[2024-04-15] MEDS: Menthol/Lanolin/Calamine/Znox 113 GM Tube 1 APPLIC TOPICAL ×2 (08:19→22:39)
[2024-04-15 11:06] VITALS: BP 177/90; PULSE 63; RESP 18; TEMP 37.4; O2SAT 93
[2024-04-15] MEDS: Ascorbic Acid 500 MG Tablet 1000 MG PO (11:24)
[2024-04-15] MEDS: Acetaminophen 500 MG Tablet 1000 MG PO (11:24)
[2024-04-15] MEDS: Citalopram 20 MG Tablet PO (22:38)
[2024-04-15] MEDS: Tamsulosin HCl 0.4 MG Capsule PO (22:39)
[2024-04-16] MEDS: 0.9% Saline Lock 10 ML Syringe IV (02:25)
[2024-04-16] MEDS: Piperacil/Tazobactam 3.375 GM in 0.9% Normal Saline (50mL MB+) 50 ML IV ×3 (05:47→21:22)
[2024-04-16] MEDS: Menthol/Lanolin/Calamine/Znox 113 GM Tube 1 APPLIC TOPICAL ×2 (07:56→21:20)
[2024-04-16] MEDS: Ensure Plus High Protein 120 ML LIQUID PO ×3 (07:56→17:20)
[2024-04-16] MEDS: Nystatin Powder 15gm Bottle 1 APPLIC TOPICAL ×2 (07:57→21:20)
[2024-04-16] MEDS: Carvedilol 12.5 MG Tablet PO ×2 (07:59→17:20)
[2024-04-16] MEDS: Losartan Potassium 100 MG Tablet PO (07:59)
[2024-04-16] MEDS: APIXABAN 5 MG TABLET PO ×2 (07:59→21:21)
[2024-04-16] MEDS: Potassium Chloride Oral Tablet 20 MEQ PO (07:59)
[2024-04-16] MEDS: Gabapentin 600 MG Tablet PO ×2 (07:59→17:23)
[2024-04-16] MEDS: Lactobacillis Acidophilus 1 CAP PO ×2 (07:59→21:21)
[2024-04-16] MEDS: Senna/Docusate Sodium 1 Tablet 2 TABLET PO ×2 (08:00→21:21)
[2024-04-16] MEDS: Methenamine Hippurate 1 GM Tablet PO ×2 (08:00→21:21)
[2024-04-16] MEDS: Cholecalciferol (VIT D3) 25 MCG TABLET (1,000 UNITS) PO (08:00)
[2024-04-16 08:02] VITALS: BP 174/82; PULSE 65; RESP 16; TEMP 36.7; O2SAT 93
[2024-04-16] MEDS: Ascorbic Acid 500 MG Tablet 1000 MG PO (11:20)
[2024-04-16] MEDS: Acetaminophen 500 MG Tablet 1000 MG PO (11:20)
--- NOTE | 2024-04-16 12:50 | NURSING ---
Witnessed patient's using the sera lift to transfer the patient upon entry to the room. Patient's states she administered another enema to the patient per patient request after the nurse had already administered the ordered dose. requested this TWIST MAKER not to report incident. This TWIST MAKER stated that we have to in order to maintain patient safety. This TWIST MAKER educated patient and about not administering additional medication to the patient while he is admitted for safety, and that medications given the patient needs to be ordered by the physician and administered by the nurse. This TWIST MAKER educated patient's not to use the sera lift to transfer patient to maintain patient safety. Incident reported to nurse.
--- NOTE | 2024-04-16 12:57 | NURSING ---
REINFORCING IRON AND REBAR WORKERS approached this nurse and reported that she had witnessed raised the resident off of the bedside commode with the sera steady and gave resident an enema. A medium bowel movement observed with a small amount of blood noted. was educated by this nurse that staffing is to assist with transfers and administer medications. apologized and stated that her really gets upset with her sometimes if he does not do what she asks. This nurse suggested that we could ask Dr. Gallardo if he would be ok with ordering a PRN dose of enema daily for times where he wants extra. But in the future consult with nursing staff and we can help them to maintain patient safety. Message left for doctor Sami to update on incident and request for prn enema. REINFORCING IRON AND REBAR WORKERS reports she had updated Mindy.
[2024-04-16] MEDS: 0.9% Normal Saline (100mL Bag) 100 ML 15 ML IV (14:07)
[2024-04-16 16:30] VITALS: BP 190/95; PULSE 70
[2024-04-16 19:14] VITALS: BP 168/84
--- NOTE | 2024-04-16 20:52 | NURSING ---
Addendum entered by Esteban Miranda 04/16/24 21:17: PRN Enemeez to be in addition to RTN BID enemeez as ordered. Original Note: Marleen PEARL reports observing patient lifting patient off of the bedside commode with the sera steady and administering an enema without notifying the nurse. Dr. Gallardo notified at this time via telephone and notified of patient spouse request for PRN Enemeez. Marleen PEARL also reported observing small amount of blood after patient bowel movement. Patient frequently observed bearing down hard to move bowels despite encouragement not to strain self during bowel movements. Dr. Gallardo notified. Per Dr. Gallardo of for PRN Enemeez. Order repeated back.
[2024-04-16] MEDS: Citalopram 20 MG Tablet PO (21:21)
[2024-04-16] MEDS: Tamsulosin HCl 0.4 MG Capsule PO (21:21)
[2024-04-17] MEDS: 0.9% Saline Lock 10 ML Syringe IV ×2 (05:07→23:08)
[2024-04-17] MEDS: Piperacil/Tazobactam 3.375 GM in 0.9% Normal Saline (50mL MB+) 50 ML IV ×3 (05:08→23:26)
[2024-04-17 08:00] VITALS: BP 155/81; PULSE 63; RESP 18; O2SAT 95
[2024-04-17] MEDS: Methenamine Hippurate 1 GM Tablet PO ×2 (08:03→23:12)
[2024-04-17] MEDS: Ensure Plus High Protein 120 ML LIQUID PO ×3 (08:03→17:18)
[2024-04-17] MEDS: Gabapentin 600 MG Tablet PO ×2 (08:03→17:18)
[2024-04-17] MEDS: Carvedilol 12.5 MG Tablet PO ×2 (08:04→17:18)
[2024-04-17] MEDS: Lactobacillis Acidophilus 1 CAP PO ×2 (08:04→23:09)
[2024-04-17] MEDS: Potassium Chloride Oral Tablet 20 MEQ PO (08:04)
[2024-04-17] MEDS: APIXABAN 5 MG TABLET PO ×2 (08:04→23:11)
[2024-04-17] MEDS: Losartan Potassium 100 MG Tablet PO (08:04)
[2024-04-17] MEDS: Nystatin Powder 15gm Bottle 1 APPLIC TOPICAL ×2 (08:04→23:12)
[2024-04-17] MEDS: Cholecalciferol (VIT D3) 25 MCG TABLET (1,000 UNITS) PO (08:04)
[2024-04-17] MEDS: Senna/Docusate Sodium 1 Tablet 2 TABLET PO ×2 (08:04→23:13)
[2024-04-17] MEDS: Menthol/Lanolin/Calamine/Znox 113 GM Tube 1 APPLIC TOPICAL ×2 (08:05→23:09)
[2024-04-17 10:20] VITALS: PULSE 63; RESP 18; O2SAT 95
[2024-04-17] MEDS: Acetaminophen 500 MG Tablet 1000 MG PO (12:19)
[2024-04-17] MEDS: Ascorbic Acid 500 MG Tablet 1000 MG PO (12:19)
[2024-04-17] MEDS: 0.9% Normal Saline (100mL Bag) 100 ML 15 ML IV (14:01)
[2024-04-17 17:40] VITALS: BP 180/92
[2024-04-17] MEDS: Tamsulosin HCl 0.4 MG Capsule PO (23:11)
[2024-04-17] MEDS: Citalopram 20 MG Tablet PO (23:11)
[2024-04-18] MEDS: Piperacil/Tazobactam 3.375 GM in 0.9% Normal Saline (50mL MB+) 50 ML IV ×3 (05:04→21:37)
[2024-04-18 06:02] LABS: Absolute Lymphocyte Count 0.87 X10^3/uL (0.83-4.51); Absolute Neutrophil Count 3.4 X10^3/uL (2.0-7.7); Basophil# 0.01 X10^3/uL; Basophil% 0.2 % (0-1); Eosinophil# 0.18 X10^3/uL; Eosinophils% 3.7 % (0-5); Hematocrit 32.1 % (40-54); Hemoglobin 10.4 g/dL (13.0-16.5); Lymphocyte # 0.87 X10^3/ul (0.83-4.51); Lymphocyte % 17.9 % (19-41); Mean Corp Hgb Conc 32.4 g/dL (32-36); Mean Corpuscular Volume 86.5 fL (80-94); Mean Platelet Vol. 10.3 fl (6.2-12.0); Monocyte% 8.2 % (0-10); NRBC Flagged by Analyzer 0 % (0-5); Neutrophil # 3.37 X10^3/uL (2.7-7.7); Neutrophil % 69.6 % (47-70); Platelet Count 192 K/mm3 (150-450); Red Blood Count 3.71 M/mm3 (4.6-6.2); White Blood Count 4.9 K/mm3 (4.4-11.0)
[2024-04-18 06:41] LABS: Anion Gap 7 (5-15); BUN 17 mg/dL (7-18); BUN/Creat Ratio 16.7 RATIO (10-20); Calcium,Total 8.7 mg/dL (8.5-10.1); Chloride 110 mmol/L (98-107); Creatinine, Serum 1.02 mg/dL (0.70-1.30); EST Glomerular Filtration Rate 75 mL/min (>60); Est Glom Filt Rate - Afr Amer 91 mL/min (>60); Estimated Creatinine Clearance 74.54 ml/min; Glucose 85 mg/dL (74-106); Potassium 3.4 mmol/L (3.5-5.1); Sodium Level 142 mmol/L (136-145)
[2024-04-18] MEDS: Ensure Plus High Protein 120 ML LIQUID PO (07:47)
[2024-04-18] MEDS: Potassium Chloride Oral Tablet 20 MEQ PO ×2 (07:47→17:44)
[2024-04-18] MEDS: Gabapentin 600 MG Tablet PO ×2 (07:49→17:46)
[2024-04-18] MEDS: Nystatin Powder 15gm Bottle 1 APPLIC TOPICAL ×2 (07:49→21:44)
[2024-04-18] MEDS: Lactobacillis Acidophilus 1 CAP PO ×2 (07:49→21:31)
[2024-04-18] MEDS: Menthol/Lanolin/Calamine/Znox 113 GM Tube 1 APPLIC TOPICAL ×2 (07:49→21:43)
[2024-04-18] MEDS: Methenamine Hippurate 1 GM Tablet PO ×2 (07:50→21:31)
[2024-04-18] MEDS: Senna/Docusate Sodium 1 Tablet 2 TABLET PO ×2 (07:50→21:32)
[2024-04-18] MEDS: APIXABAN 5 MG TABLET PO ×2 (07:50→21:31)
[2024-04-18] MEDS: Cholecalciferol (VIT D3) 25 MCG TABLET (1,000 UNITS) PO (07:50)
[2024-04-18] MEDS: Carvedilol 12.5 MG Tablet PO ×2 (07:53→17:40)
[2024-04-18] MEDS: Losartan Potassium 100 MG Tablet PO (07:53)
[2024-04-18] MEDS: amLODIPine 10 MG Tablet PO (08:02)
[2024-04-18 08:04] VITALS: BP 162/88; PULSE 64; RESP 18; O2SAT 93
[2024-04-18] MEDS: 0.9% Saline Lock 10 ML Syringe IV ×4 (10:27→21:39)
[2024-04-18 10:40] VITALS: PULSE 64; RESP 16; O2SAT 93
[2024-04-18] MEDS: Ascorbic Acid 500 MG Tablet 1000 MG PO (11:23)
[2024-04-18] MEDS: Acetaminophen 500 MG Tablet 1000 MG PO (11:23)
[2024-04-18 16:00] VITALS: TEMP 36.3
--- NOTE | 2024-04-18 16:29 | NURSING ---
60 CC FLUSH TO CATHETER. PT TOLERATED WELL. MINIMAL LEAKAGE AROUND CATHETER, DEFLATED BALLOON AND READJUSTED CATH TUBE AND INFLATED BALLOON BACK UP WILL CONTINUE TO MONITOR..
[2024-04-18] MEDS: 0.9% Normal Saline (100mL Bag) 100 ML 15 ML IV (17:48)
[2024-04-18 17:49] VITALS: BP 146/71; PULSE 56
[2024-04-18] MEDS: Tamsulosin HCl 0.4 MG Capsule PO (21:31)
[2024-04-18] MEDS: Citalopram 20 MG Tablet PO (21:31)
[2024-04-19] VITALS (7 sets, daily range): BP systolic 141–166; BP diastolic 71–82; PULSE 66–72; RESP 16; TEMP 36.2; O2SAT 95–96
[2024-04-19] MEDS: Piperacil/Tazobactam 3.375 GM in 0.9% Normal Saline (50mL MB+) 50 ML IV ×3 (05:06→21:47)
[2024-04-19] MEDS: 0.9% Saline Lock 10 ML Syringe IV ×4 (09:53→21:53)
[2024-04-19] MEDS: Carvedilol 12.5 MG Tablet PO ×2 (09:55→17:58)
[2024-04-19] MEDS: Menthol/Lanolin/Calamine/Znox 113 GM Tube 1 APPLIC TOPICAL ×2 (09:56→21:59)
[2024-04-19] MEDS: Potassium Chloride Oral Tablet 20 MEQ PO ×2 (09:56→17:59)
[2024-04-19] MEDS: Lactobacillis Acidophilus 1 CAP PO ×2 (09:56→21:51)
[2024-04-19] MEDS: APIXABAN 5 MG TABLET PO ×2 (09:57→21:51)
[2024-04-19] MEDS: Losartan Potassium 100 MG Tablet PO (09:57)
[2024-04-19] MEDS: Nystatin Powder 15gm Bottle 1 APPLIC TOPICAL ×2 (09:57→21:59)
[2024-04-19] MEDS: Methenamine Hippurate 1 GM Tablet PO ×2 (09:57→21:51)
[2024-04-19] MEDS: Cholecalciferol (VIT D3) 25 MCG TABLET (1,000 UNITS) PO (09:58)
[2024-04-19] MEDS: Senna/Docusate Sodium 1 Tablet 2 TABLET PO ×2 (09:58→21:51)
[2024-04-19] MEDS: amLODIPine 10 MG Tablet PO (09:58)
[2024-04-19] MEDS: Gabapentin 600 MG Tablet PO ×2 (10:01→17:56)
[2024-04-19] MEDS: Acetaminophen 500 MG Tablet 1000 MG PO (11:20)
[2024-04-19] MEDS: Ascorbic Acid 500 MG Tablet 1000 MG PO (11:20)
[2024-04-19] MEDS: Ensure Plus High Protein 120 ML LIQUID PO ×2 (12:51→17:56)
--- NOTE | 2024-04-19 15:11 | NURSING ---
PT AGUILAR CATH MODERATE LEAKING AROUND PENIS. FLUSHED 60 CC STERIL WATER AND DEFLATED BALLOON AND REPOSITIONED CATH TUBE AND REINFLATED BALLOON. GOOD FLOW IN TUBE BUT STILL SMALL LEAKAGE,HAD RN COME TO ROOM.RN ASSESSED AND DID THE SAME THING. WILL CONTINUE TO MONITOR.
[2024-04-19] MEDS: hydrALAZINE 25 MG Tablet PO ×2 (17:59→21:51)
[2024-04-19] MEDS: Tamsulosin HCl 0.4 MG Capsule PO (21:51)
[2024-04-19] MEDS: Citalopram 20 MG Tablet PO (21:51)
[2024-04-20] VITALS (11 sets, daily range): BP systolic 96–152; BP diastolic 51–82; PULSE 60–72; RESP 16; TEMP 36.6–37; O2SAT 95–97
[2024-04-20] MEDS: hydrALAZINE 25 MG Tablet PO (05:44)
[2024-04-20] MEDS: Piperacil/Tazobactam 3.375 GM in 0.9% Normal Saline (50mL MB+) 50 ML IV ×3 (05:44→23:07)
[2024-04-20 06:51] LABS: Anion Gap 6 (5-15); BUN 18 mg/dL (7-18); Calcium,Total 9.2 mg/dL (8.5-10.1); Chloride 112 mmol/L (98-107); EST Glomerular Filtration Rate 77 mL/min (>60); Est Glom Filt Rate - Afr Amer 93 mL/min (>60); Estimated Creatinine Clearance 76.03 ml/min; Glucose 80 mg/dL (74-106); Potassium 3.7 mmol/L (3.5-5.1); Sodium Level 142 mmol/L (136-145)
[2024-04-20] MEDS: Ensure Plus High Protein 120 ML LIQUID PO ×3 (09:05→17:23)
[2024-04-20] MEDS: Carvedilol 12.5 MG Tablet PO ×2 (09:06→17:21)
[2024-04-20] MEDS: Potassium Chloride Oral Tablet 20 MEQ PO ×2 (09:06→17:21)
[2024-04-20] MEDS: Lactobacillis Acidophilus 1 CAP PO ×2 (09:06→22:35)
[2024-04-20] MEDS: Nystatin Powder 15gm Bottle 1 APPLIC TOPICAL ×2 (09:07→22:34)
[2024-04-20] MEDS: Losartan Potassium 100 MG Tablet PO (09:07)
[2024-04-20] MEDS: amLODIPine 10 MG Tablet PO (09:07)
[2024-04-20] MEDS: Cholecalciferol (VIT D3) 25 MCG TABLET (1,000 UNITS) PO (09:07)
[2024-04-20] MEDS: Methenamine Hippurate 1 GM Tablet PO ×2 (09:07→22:34)
[2024-04-20] MEDS: APIXABAN 5 MG TABLET PO ×2 (09:07→22:33)
[2024-04-20] MEDS: Senna/Docusate Sodium 1 Tablet 2 TABLET PO ×2 (09:07→22:35)
[2024-04-20] MEDS: Menthol/Lanolin/Calamine/Znox 113 GM Tube 1 APPLIC TOPICAL ×2 (09:08→22:31)
[2024-04-20] MEDS: Gabapentin 600 MG Tablet PO ×2 (09:10→17:21)
[2024-04-20] MEDS: Acetaminophen 500 MG Tablet 1000 MG PO (12:55)
[2024-04-20] MEDS: Ascorbic Acid 500 MG Tablet 1000 MG PO (12:56)
[2024-04-20] MEDS: 0.9% Normal Saline (100mL Bag) 100 ML 15 ML IV ×2 (14:25→22:36)
[2024-04-20] MEDS: 0.9% Saline Lock 10 ML Syringe IV ×2 (14:26→22:36)
--- NOTE | 2024-04-20 18:26 | NURSING ---
starr stat lock moved from mid thigh to upper LT thigh, noted catheter being pulled taut when pt is being assisted to BSC w/sera lift. more slack given to reduce irritation to urethra. pt appreciative.
--- NOTE | 2024-04-20 18:57 | NURSING ---
INTERNET SPECIALIST reported blood in BSC after pt having BM. stool brown & hard pellets w/small amt of red drainage noted. report given to next shift. message left for dr whaley.
[2024-04-20] MEDS: hydrALAZINE 10 MG Tablet PO (22:30)
[2024-04-20] MEDS: Tamsulosin HCl 0.4 MG Capsule PO (22:33)
[2024-04-20] MEDS: Citalopram 20 MG Tablet PO (22:33)
[2024-04-21] VITALS (7 sets, daily range): BP systolic 97–131; BP diastolic 50–70; PULSE 66–70; RESP 17; TEMP 36.7–37.1
[2024-04-21] MEDS: Piperacil/Tazobactam 3.375 GM in 0.9% Normal Saline (50mL MB+) 50 ML IV ×3 (04:58→22:50)
[2024-04-21] MEDS: hydrALAZINE 10 MG Tablet PO (05:42)
--- NOTE | 2024-04-21 05:49 | NURSING ---
Patient starr cath reported to be leaking, 400ml starr output, brief also wet, starr balloon deflated, starr advanced, balloon reinflated, starr flushed with 60cc sterile water, patient tolerated well, starr draining clear yellow output,
[2024-04-21 08:23] LABS: Hematocrit 32.3 % (40-54); Hemoglobin 10.5 g/dL (13.0-16.5)
[2024-04-21] MEDS: Carvedilol 12.5 MG Tablet PO ×2 (08:28→18:14)
[2024-04-21] MEDS: Potassium Chloride Oral Tablet 20 MEQ PO ×2 (08:28→18:14)
[2024-04-21] MEDS: amLODIPine 10 MG Tablet PO (08:29)
[2024-04-21] MEDS: APIXABAN 5 MG TABLET PO ×2 (08:29→22:51)
[2024-04-21] MEDS: Methenamine Hippurate 1 GM Tablet PO ×2 (08:29→22:51)
[2024-04-21] MEDS: Losartan Potassium 100 MG Tablet PO (08:29)
[2024-04-21] MEDS: Cholecalciferol (VIT D3) 25 MCG TABLET (1,000 UNITS) PO (08:30)
[2024-04-21] MEDS: Senna/Docusate Sodium 1 Tablet 2 TABLET PO ×2 (08:30→22:50)
[2024-04-21] MEDS: Lactobacillis Acidophilus 1 CAP PO ×2 (08:30→22:51)
[2024-04-21] MEDS: Gabapentin 600 MG Tablet PO ×2 (08:32→18:16)
[2024-04-21] MEDS: Ensure Plus High Protein 120 ML LIQUID PO ×3 (08:32→18:16)
[2024-04-21] MEDS: Menthol/Lanolin/Calamine/Znox 113 GM Tube 1 APPLIC TOPICAL ×2 (08:34→23:03)
[2024-04-21] MEDS: Nystatin Powder 15gm Bottle 1 APPLIC TOPICAL ×2 (08:34→22:52)
[2024-04-21] MEDS: Acetaminophen 500 MG Tablet 1000 MG PO (11:34)
[2024-04-21] MEDS: Ascorbic Acid 500 MG Tablet 1000 MG PO (11:34)
[2024-04-21] MEDS: 0.9% Saline Lock 10 ML Syringe IV ×2 (13:41→22:50)
--- NOTE | 2024-04-21 15:38 | NURSING ---
dr whaley notified of low Bp, josué an. pt asymptomatic
[2024-04-21] MEDS: Tamsulosin HCl 0.4 MG Capsule PO (22:50)
[2024-04-21] MEDS: Citalopram 20 MG Tablet PO (22:50)
[2024-04-22] MEDS: 0.9% Saline Lock 10 ML Syringe IV ×2 (05:44→19:30)
[2024-04-22] MEDS: Piperacil/Tazobactam 3.375 GM in 0.9% Normal Saline (50mL MB+) 50 ML IV ×2 (05:45→14:10)
--- NOTE | 2024-04-22 05:52 | NURSING ---
Removed 10 mls of fluid from starr catheter and pulled back approx 1 cm. Reinserted 10 mls of fluid into balloon of catheter. Starr drained 590 additional mls of urine. Pt denies discomfort or pain.
--- NOTE | 2024-04-22 06:14 | NURSING ---
Old mepilex to buttocks, coccyx area removed, washed with soap and water, rinsed and dried well. New mepilex applied. Pt tolerated well.
[2024-04-22] MEDS: Cholecalciferol (VIT D3) 25 MCG TABLET (1,000 UNITS) PO (08:05)
[2024-04-22] MEDS: Senna/Docusate Sodium 1 Tablet 2 TABLET PO ×2 (08:05→22:06)
[2024-04-22] MEDS: Menthol/Lanolin/Calamine/Znox 113 GM Tube 1 APPLIC TOPICAL ×2 (08:06→22:03)
[2024-04-22] MEDS: Losartan Potassium 100 MG Tablet PO (08:06)
[2024-04-22] MEDS: Methenamine Hippurate 1 GM Tablet PO ×2 (08:06→22:05)
[2024-04-22] MEDS: Lactobacillis Acidophilus 1 CAP PO ×2 (08:06→22:03)
[2024-04-22] MEDS: Potassium Chloride Oral Tablet 20 MEQ PO ×2 (08:06→16:25)
[2024-04-22] MEDS: Carvedilol 12.5 MG Tablet PO ×2 (08:06→16:25)
[2024-04-22] MEDS: amLODIPine 10 MG Tablet PO (08:06)
[2024-04-22] MEDS: Nystatin Powder 15gm Bottle 1 APPLIC TOPICAL ×2 (08:07→22:04)
[2024-04-22] MEDS: APIXABAN 5 MG TABLET PO ×2 (08:07→22:04)
[2024-04-22] MEDS: Gabapentin 600 MG Tablet PO ×2 (08:14→16:25)
[2024-04-22] MEDS: Ensure Plus High Protein 120 ML LIQUID PO ×2 (08:14→16:25)
[2024-04-22] MEDS: Acetaminophen 500 MG Tablet 1000 MG PO (12:14)
[2024-04-22] MEDS: Ascorbic Acid 500 MG Tablet 1000 MG PO (12:14)
[2024-04-22 12:17] VITALS: BP 137/70; PULSE 67; RESP 14; TEMP 36.8; O2SAT 94
[2024-04-22] MEDS: Citalopram 20 MG Tablet PO (22:04)
[2024-04-22] MEDS: Tamsulosin HCl 0.4 MG Capsule PO (22:05)
[2024-04-23 08:37] VITALS: BP 129/68; PULSE 69; RESP 16; TEMP 36.6; O2SAT 96
[2024-04-23] MEDS: Ensure Plus High Protein 120 ML LIQUID PO ×3 (08:41→18:17)
[2024-04-23] MEDS: Lactobacillis Acidophilus 1 CAP PO ×2 (08:41→18:17)
[2024-04-23] MEDS: APIXABAN 5 MG TABLET PO ×2 (08:41→19:53)
[2024-04-23] MEDS: Gabapentin 600 MG Tablet PO ×2 (08:41→18:17)
[2024-04-23] MEDS: Potassium Chloride Oral Tablet 20 MEQ PO ×2 (08:41→18:17)
[2024-04-23] MEDS: Losartan Potassium 100 MG Tablet PO (08:41)
[2024-04-23] MEDS: Carvedilol 12.5 MG Tablet PO ×2 (08:41→18:17)
[2024-04-23] MEDS: Senna/Docusate Sodium 1 Tablet 2 TABLET PO ×2 (08:42→19:54)
[2024-04-23] MEDS: Methenamine Hippurate 1 GM Tablet PO ×2 (08:42→19:53)
[2024-04-23] MEDS: amLODIPine 10 MG Tablet PO (08:42)
[2024-04-23] MEDS: Cholecalciferol (VIT D3) 25 MCG TABLET (1,000 UNITS) PO (08:42)
[2024-04-23] MEDS: Nystatin Powder 15gm Bottle 1 APPLIC TOPICAL ×2 (08:43→19:54)
[2024-04-23] MEDS: Menthol/Lanolin/Calamine/Znox 113 GM Tube 1 APPLIC TOPICAL ×2 (08:43→19:54)
--- NOTE | 2024-04-23 08:48 | NURSING ---
AGUILAR CATH DRAINING CLEAR YELLOW URINE AT THIS TIME, NO ISSUES.
[2024-04-23] MEDS: 0.9% Saline Lock 10 ML Syringe IV (08:50)
[2024-04-23] MEDS: Acetaminophen 500 MG Tablet 1000 MG PO (12:05)
[2024-04-23] MEDS: Ascorbic Acid 500 MG Tablet 1000 MG PO (12:05)
[2024-04-23 18:21] VITALS: BP 122/72; PULSE 63
[2024-04-23 18:23] VITALS: PULSE 63; RESP 15; O2SAT 96
[2024-04-23] MEDS: Citalopram 20 MG Tablet PO (19:53)
[2024-04-23] MEDS: Tamsulosin HCl 0.4 MG Capsule PO (19:53)
--- NOTE | 2024-04-23 20:03 | NURSING ---
flushed starr 60cc sterile water, emptied starr 550cc clear yellow urine. son at bedside, pt watching tv
--- NOTE | 2024-04-24 07:39 | PN.TCU_ITS ---
Subjective Subjective Resident seen, examined for regulatory visit. He has non new complaints or issues. 04/10/2024 Dr. Doshi: DANNY AQUINO, is a 78 M who presents to rehab for strengthening and improving after being in the hospital for an infection he has a neurogenic bladder history of spinal cord injury he has been seen in the office for follow-up initially he was managing his catheter in the bladder with condom catheter during the daytime and night catheter at night but now is gone to chronic Starr catheter. I was consulted in regards to this whether a suprapubic catheter would offer any benefit. I explained to the patient that suprapubic catheter will not prevent UTIs he will be at higher risk or just the same risk for getting UTIs with a regular catheter and a suprapubic catheter that suprapubic catheter will not prevent UTIs. Also the risk of the procedure the risk of bleeding infection chronic cystitis and bladder stone formations were discussed with the patient. I think at this point he has a continue with Starr catheter management per his wishes. Daily flushing with sterile water can help lower the risk of infections. After discussing with patient all his questions were addressed he can follow-up with me as an outpatient. 04/12/2024: Dr. Stuart: (1) Neurogenic bladder: (2) Recurrent UTI: PLAN: Ucx now with Pseudomonas fluorescens, I to zosyn, S to levaquin but pt with cipro allergy. Feeling better, wbc normal, no abd pain, no fever. CT did show stone in place, seen by urology, outpt followup planned. Will cont zosyn, plan on stop date 04/22 given recurrent infection. Objective Data Objective Data Vital Signs: Vital Signs Temp Pulse Resp BP Pulse Ox O2 Del Method 97.8 F 63 15 122/72 H 96 Room Air 04/23/24 08:37 04/23/24 18:23 04/23/24 18:23 04/23/24 18:21 04/23/24 18:23 04/23/24 18:23 Oxygen Delivery Method Room Air Weight: 107.728 kg Body Mass Index (BMI) 34.0 Intake & Output: Intake and Output for Last 24 Hours 04/22/24 04/23/24 04/24/24 23:59 23:59 23:59 Intake Total 1090 / 1090 720 / 720 Output Total 1765 / 1765 2700 / 2700 600 / 600 Balance -675 / -675 -1979 / -1979 -600 / -600 Lab / Micro Data 04/21/24 08:15 04/20/24 05:03 Micro: Microbiology 04/05/24 22:00 Blood Culture (Wb) #2 - Left Wrist Blood Culture - Final No growth in 5 days. 04/05/24 21:50 Blood Culture (Wb) - Left Hand Blood Culture - Final No growth in 5 days. 04/05/24 17:10 Urine Catheter - Starr Urine Culture - Final Pseudomonas fluorescens 04/06/24 23:24 Mucosa - Nasopharyngeal Respiratory Panel (PCR) - Final 04/06/24 18:15 Nasal Secretion SARS-CoV-2 Antigen (Rapid) - Final Physical Exam Const alert General Appearance: cooperative HEENT normocephalic Eyes PERRL and EOMs intact bilaterally Neck supple, no JVD and no carotid bruits Resp normal respiratory effort, normal air movement and clear to auscultation bilaterally Cardio regular rate and regular rhythm GI normal to inspection, nondistended, normoactive bowel sounds, non-tender and non-distended Bladder / Kidney Exam: catheter in place urethral Extremity normal capillary refill General Extremity: Negative for edema Skin no rashes or lesions noted General Skin Exam: no breakdown Neuro moves all extremities Speech: speech abnormal Details: Positive for other (Expressive aphasia.) Motor Exam: general weakness Psych affect normal Appearance: appropriate Assessment & Plan Assessment/Plan (1) Debility: (2) Acute encephalopathy: (3) Bacteremia: (4) Recurrent UTI: (5) Spinal cord injury: (6) 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 * Debility - PT/OT. * Aphasia - ST. * Pain - Tylenol 1000mg q6 prn pain (1-10), 1000mg 1200. * Bowel - senna/colace 2 tablets bid, Docusate 283mg rectal bid, daily prn, Dulcolax 10mg daily prn, Magnesium citrate 300mL daily prn, MOM 30mL daily prn. * Adult immunization - Administer pneumonia vaccine, covid vaccine, flu vaccine as appropriate. * DVT prophylaxis - on Eliquis. * Atrial fibrillation - Coreg 12.5mg bidcm, Eliquis 5mg bid. * Recurrent UTI - Methenamine 1gm bid, Vitamin C 1000mg daily. * Vitamin D deficiency - D3 25mcg daily. * Depression - Citalopram 20mg qhs, stable chronic group home use, GDR not recommended. * Neuropathic pain - Gabapentin 600mg bidcm. * Hypokalemia - KCL ER 20meq bidcm. * BPH/Urinary retention/Neurogenic bladder - Tamsulosin 0.4mg daily, chronic indwelling starr catheter. * Shortness of breath - Albuterol 2.5mg q2h prn. * Hypertension - Coreg 12.5mg bid, Losartan 100mg daily, Amlodipine 10mg daily. * Nutrition - Ensure Plus 120mL tidcm. * GI prophylaxis - Lactobacillus 1 capsule bid. * Skin irritation - Calmoseptine topical bid. * Tinea Corporis - Nystatin powder topical bid.
[2024-04-24] MEDS: Losartan Potassium 100 MG Tablet PO (07:48)
[2024-04-24] MEDS: amLODIPine 10 MG Tablet PO (07:48)
[2024-04-24] MEDS: Carvedilol 12.5 MG Tablet PO ×2 (07:48→17:39)
[2024-04-24] MEDS: APIXABAN 5 MG TABLET PO ×2 (07:48→21:55)
[2024-04-24] MEDS: Methenamine Hippurate 1 GM Tablet PO ×2 (07:48→21:55)
[2024-04-24] MEDS: Potassium Chloride Oral Tablet 20 MEQ PO ×2 (07:48→17:39)
[2024-04-24] MEDS: Lactobacillis Acidophilus 1 CAP PO ×2 (07:48→21:55)
[2024-04-24] MEDS: Menthol/Lanolin/Calamine/Znox 113 GM Tube 1 APPLIC TOPICAL ×2 (07:49→21:57)
[2024-04-24] MEDS: Ensure Plus High Protein 120 ML LIQUID PO ×3 (07:49→17:39)
[2024-04-24] MEDS: Cholecalciferol (VIT D3) 25 MCG TABLET (1,000 UNITS) PO (07:49)
[2024-04-24] MEDS: Nystatin Powder 15gm Bottle 1 APPLIC TOPICAL ×2 (07:49→21:55)
[2024-04-24] MEDS: Senna/Docusate Sodium 1 Tablet 2 TABLET PO ×2 (07:49→21:55)
[2024-04-24] MEDS: Gabapentin 600 MG Tablet PO ×2 (07:49→17:39)
[2024-04-24] MEDS: 0.9% Saline Lock 10 ML Syringe IV ×2 (07:52→22:00)
[2024-04-24 08:55] VITALS: BP 138/77; PULSE 67; RESP 16; TEMP 36.4; O2SAT 95
[2024-04-24 10:13] VITALS: PULSE 67; RESP 16; O2SAT 95
[2024-04-24] MEDS: Ascorbic Acid 500 MG Tablet 1000 MG PO (11:52)
[2024-04-24] MEDS: Acetaminophen 500 MG Tablet 1000 MG PO (11:52)
[2024-04-24] MEDS: Citalopram 20 MG Tablet PO (21:55)
[2024-04-24] MEDS: Tamsulosin HCl 0.4 MG Capsule PO (21:55)
[2024-04-25] MEDS: 0.9% Saline Lock 10 ML Syringe IV ×2 (06:45→08:28)
[2024-04-25 07:04] LABS: Absolute Lymphocyte Count 0.89 X10^3/uL (0.83-4.51); Absolute Neutrophil Count 4.4 X10^3/uL (2.0-7.7); Basophil# 0.04 X10^3/uL; Basophil% 0.7 % (0-1); Eosinophil# 0.23 X10^3/uL; Eosinophils% 3.8 % (0-5); Hematocrit 29.8 % (40-54); Hemoglobin 9.9 g/dL (13.0-16.5); Lymphocyte # 0.89 X10^3/ul (0.83-4.51); Lymphocyte % 14.5 % (19-41); Mean Corp Hgb Conc 33.2 g/dL (32-36); Mean Corpuscular Volume 87.4 fL (80-94); Mean Platelet Vol. 9.8 fl (6.2-12.0); Monocyte% 8.2 % (0-10); NRBC Flagged by Analyzer 0 % (0-5); Neutrophil # 4.43 X10^3/uL (2.7-7.7); Neutrophil % 72.3 % (47-70); Platelet Count 178 K/mm3 (150-450); RBC Distribution Width CV 15.9 % (11.6-14.6); RBC Distribution Width SD 50.5 fl (35.1-43.9); Red Blood Count 3.41 M/mm3 (4.6-6.2); White Blood Count 6.1 K/mm3 (4.4-11.0)
[2024-04-25 07:37] LABS: Anion Gap 4 (5-15); BUN 24 mg/dL (7-18); BUN/Creat Ratio 29.8 RATIO (10-20); Calcium,Total 8.7 mg/dL (8.5-10.1); Chloride 110 mmol/L (98-107); EST Glomerular Filtration Rate 99 mL/min (>60); Est Glom Filt Rate - Afr Amer 119 mL/min (>60); Estimated Creatinine Clearance 95.04 ml/min; Glucose 80 mg/dL (74-106); Sodium Level 139 mmol/L (136-145)
[2024-04-25] MEDS: Ensure Plus High Protein 120 ML LIQUID PO ×2 (08:21→17:41)
[2024-04-25] MEDS: Carvedilol 12.5 MG Tablet PO ×2 (08:22→17:37)
[2024-04-25] MEDS: Potassium Chloride Oral Tablet 20 MEQ PO ×2 (08:22→17:38)
[2024-04-25] MEDS: Losartan Potassium 100 MG Tablet PO (08:23)
[2024-04-25] MEDS: Lactobacillis Acidophilus 1 CAP PO ×2 (08:23→22:15)
[2024-04-25] MEDS: Menthol/Lanolin/Calamine/Znox 113 GM Tube 1 APPLIC TOPICAL ×2 (08:23→22:14)
[2024-04-25] MEDS: amLODIPine 10 MG Tablet PO (08:24)
[2024-04-25] MEDS: Senna/Docusate Sodium 1 Tablet 2 TABLET PO ×2 (08:24→22:15)
[2024-04-25] MEDS: APIXABAN 5 MG TABLET PO ×2 (08:24→22:16)
[2024-04-25] MEDS: Nystatin Powder 15gm Bottle 1 APPLIC TOPICAL ×2 (08:24→22:18)
[2024-04-25] MEDS: Methenamine Hippurate 1 GM Tablet PO ×2 (08:24→22:15)
[2024-04-25] MEDS: Cholecalciferol (VIT D3) 25 MCG TABLET (1,000 UNITS) PO (08:25)
[2024-04-25] MEDS: Gabapentin 600 MG Tablet PO ×2 (08:26→17:39)
[2024-04-25 08:32] VITALS: BP 127/67; PULSE 70; RESP 16; O2SAT 96
[2024-04-25] MEDS: Ascorbic Acid 500 MG Tablet 1000 MG PO (11:26)
[2024-04-25] MEDS: Acetaminophen 500 MG Tablet 1000 MG PO (11:26)
--- NOTE | 2024-04-25 13:36 | CASEMGMT ---
Social Work BUZZ and MARÍA with and grandson, Caleb, to discuss DC plans. MARÍA explained current LOF and recommending two person assist at DC, specifically given the 's stature vs the pt's. Pt will need to use the lift for transfers and standing. is accepting of assistance in the home. BUZZ offered and provided resources for nonskilled HHC, medical alert and [place] services. Discussed having cameras in the home if pt were to be left home alone given pt's history of going outside the home and not making safe decisions. Family agreed to that idea. MARÍA requested family schedule a time to bring home lift into therapy to practice with pt and family. Grandson to speak with his father and contact this worker to schedule training. BUZZ and MARÍA agreed for DC to be sent net week (week of 05/01). Family expressed understanding and appreciative of assistance. BUZZ will continue to follow for DC planning. LIYAH Rodriguez
[2024-04-25 14:00] VITALS: BMI 33.8
[2024-04-25 15:52] VITALS: TEMP 36.3
--- NOTE | 2024-04-25 15:52 | NURSING ---
UPDATED PT AND ON STAFF MEMBER TESTED POSITIVE FOR COVID.
[2024-04-25 17:43] VITALS: BP 123/69; PULSE 60
[2024-04-25 20:00] VITALS: PULSE 68; RESP 16; O2SAT 96
[2024-04-25] MEDS: Citalopram 20 MG Tablet PO (22:16)
[2024-04-25] MEDS: Tamsulosin HCl 0.4 MG Capsule PO (22:16)
[2024-04-26] MEDS: Ensure Plus High Protein 120 ML LIQUID PO ×2 (08:01→11:41)
[2024-04-26] MEDS: Menthol/Lanolin/Calamine/Znox 113 GM Tube 1 APPLIC TOPICAL ×2 (08:02→21:52)
[2024-04-26] MEDS: Nystatin Powder 15gm Bottle 1 APPLIC TOPICAL ×2 (08:03→21:53)
[2024-04-26] MEDS: Carvedilol 12.5 MG Tablet PO ×2 (08:04→16:57)
[2024-04-26] MEDS: Potassium Chloride Oral Tablet 20 MEQ PO ×2 (08:04→16:57)
[2024-04-26] MEDS: Lactobacillis Acidophilus 1 CAP PO ×2 (08:05→21:49)
[2024-04-26] MEDS: Losartan Potassium 100 MG Tablet PO (08:05)
[2024-04-26] MEDS: APIXABAN 5 MG TABLET PO ×2 (08:05→21:49)
[2024-04-26] MEDS: Methenamine Hippurate 1 GM Tablet PO ×2 (08:05→21:49)
[2024-04-26] MEDS: amLODIPine 10 MG Tablet PO (08:06)
[2024-04-26] MEDS: Senna/Docusate Sodium 1 Tablet 2 TABLET PO ×2 (08:06→21:49)
[2024-04-26] MEDS: Cholecalciferol (VIT D3) 25 MCG TABLET (1,000 UNITS) PO (08:06)
[2024-04-26] MEDS: Gabapentin 600 MG Tablet PO ×2 (08:07→16:58)
[2024-04-26 08:12] VITALS: BP 135/76; PULSE 67; RESP 18; O2SAT 95
[2024-04-26 11:00] VITALS: PULSE 67; RESP 18; O2SAT 95
[2024-04-26] MEDS: Ascorbic Acid 500 MG Tablet 1000 MG PO (11:19)
[2024-04-26] MEDS: Acetaminophen 500 MG Tablet 1000 MG PO (11:19)
--- NOTE | 2024-04-26 11:34 | CASEMGMT ---
Social Work Received call from grandson with appt for family lift training - 04/27 at 1230. Therapy agreeable. Family dropped off lift last evening. Mayela Cole HEAT TREATMENT TECHNICIAN TINNER HELPER
[2024-04-26 16:00] VITALS: TEMP 36.3
[2024-04-26 17:00] VITALS: BP 122/56; PULSE 60
[2024-04-26] MEDS: Tamsulosin HCl 0.4 MG Capsule PO (21:49)
[2024-04-26] MEDS: Citalopram 20 MG Tablet PO (21:49)
[2024-04-26] MEDS: 0.9% Saline Lock 10 ML Syringe IV (21:50)
[2024-04-27 03:42] VITALS: BP 128/69; PULSE 68; RESP 16; TEMP 36.8; O2SAT 96
[2024-04-27] MEDS: Potassium Chloride Oral Tablet 20 MEQ PO ×2 (09:09→17:39)
[2024-04-27] MEDS: Carvedilol 12.5 MG Tablet PO ×2 (09:09→17:39)
[2024-04-27] MEDS: APIXABAN 5 MG TABLET PO ×2 (09:10→20:28)
[2024-04-27] MEDS: Menthol/Lanolin/Calamine/Znox 113 GM Tube 1 APPLIC TOPICAL ×2 (09:10→20:29)
[2024-04-27] MEDS: Losartan Potassium 100 MG Tablet PO (09:10)
[2024-04-27] MEDS: Lactobacillis Acidophilus 1 CAP PO ×2 (09:10→20:27)
[2024-04-27] MEDS: Cholecalciferol (VIT D3) 25 MCG TABLET (1,000 UNITS) PO (09:11)
[2024-04-27] MEDS: amLODIPine 10 MG Tablet PO (09:11)
[2024-04-27] MEDS: Nystatin Powder 15gm Bottle 1 APPLIC TOPICAL ×2 (09:11→20:29)
[2024-04-27] MEDS: Methenamine Hippurate 1 GM Tablet PO ×2 (09:11→20:27)
[2024-04-27] MEDS: Senna/Docusate Sodium 1 Tablet 2 TABLET PO ×2 (09:11→20:28)
[2024-04-27] MEDS: 0.9% Saline Lock 10 ML Syringe IV ×2 (09:16→22:52)
[2024-04-27] MEDS: Ensure Plus High Protein 120 ML LIQUID PO ×2 (09:16→17:42)
[2024-04-27] MEDS: Gabapentin 600 MG Tablet PO ×2 (09:16→17:39)
[2024-04-27 09:25] VITALS: BP 121/65; PULSE 72; RESP 16; O2SAT 95
[2024-04-27] MEDS: Acetaminophen 500 MG Tablet 1000 MG PO (11:26)
[2024-04-27] MEDS: Ascorbic Acid 500 MG Tablet 1000 MG PO (11:26)
--- NOTE | 2024-04-27 15:20 | CASEMGMT ---
Social Work Family training went well. Family to order a new lift. requested this worker contact son, Bc, to set DC date. SW phoned Bc and set DC for 05/01 at 1500. Pt prefers OP therapy at [facility]. SW to coordinate. Family to transport home with van. SW faxed referral to [email or web address] for PT/OT/ST Plan: DC home with family support 05/01, [facility] PT/OT/ST Mayela Cole, BUN PANNER COMMUNITY SERVICE DIRECTOR
[2024-04-27 16:00] VITALS: TEMP 36.7
[2024-04-27 17:42] VITALS: BP 124/68; PULSE 61
--- NOTE | 2024-04-27 19:41 | DS.PCM_ITS ---
Providers Date of Admission: 03/27/24 Primary Care Physician: Dr. Tunde Beard, Consultations 04/08/24 09:03 Consult: Infectious Disease Routine Consulting Provider: Tunde Stuart Reason for Consult: Complicated UTI, P. Fluorescens, multiple allergies. EMERGENT Consult: No Notified: Yes Date Notified: 04/08/24 Time Notified: 09:03 Method of Notification: Text 04/08/24 11:33 Consult: Urology Routine Consulting Provider: Caesar Doshi Reason for Consult: suprapubic cath EMERGENT Consult: No Notified: Yes Date Notified: 04/08/24 Time Notified: 11:34 Method of Notification: Answering Service 04/10/24 12:53 Consult: Urology Routine Consulting Provider: Caesar Doshi Reason for Consult: recurrent uti, stone in place EMERGENT Consult: No Notified: Yes Date Notified: 04/10/24 Time Notified: 12:53 Method of Notification: Answering Service Comments:: clean room operator paged Reason For Visit: GNR UTI, BACTEREMIA Diagnosis Discharge Diagnosis (1) Debility: Status: Acute Code(s): R53.81 - Other malaise (2) Acute encephalopathy: Status: Acute Code(s): G93.40 - Encephalopathy, unspecified (3) Bacteremia: Status: Acute Code(s): R78.81 - Bacteremia (4) Recurrent UTI: Status: Acute Code(s): N39.0 - Urinary tract infection, site not specified (5) Spinal cord injury: Status: Acute Code(s): [id number] - (6) 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: Status: Chronic Code(s): G82.54 - Quadriplegia, C5-C7 incomplete (7) Atrial fibrillation: Status: Acute Code(s): I48.91 - Unspecified atrial fibrillation (8) Vitamin D deficiency: Status: Acute Code(s): E55.9 - Vitamin D deficiency, unspecified (9) Depression: Status: Acute Code(s): F32.A - Depression, unspecified (10) Essential (primary) hypertension: Status: Acute Code(s): I10 - Essential (primary) hypertension (11) Hypokalemia: Status: Resolved Code(s): E87.6 - Hypokalemia (12) CVA (cerebral vascular accident): Status: Acute Code(s): I63.9 - Cerebral infarction, unspecified (13) Benign prostate hyperplasia: Status: Acute Code(s): N40.0 - Benign prostatic hyperplasia without lower urinary tract symptoms Plan 78 year old male with below past medical history hospitalized for acute encephalopathy 2/2 citrobacter koseri bacteremia, UTI ruled out, pneumonia ruled out, admitted to TCU with debility, here for rehabilitation, strengthening, prior to discharge home with . * Debility - PT/OT. * Aphasia - ST. * Pain - Tylenol 1000mg q6 prn pain (1-10), 1000mg 1200. * Bowel - senna/colace 2 tablets bid, Docusate 283mg rectal bid, daily prn, Dulcolax 10mg daily prn, Magnesium citrate 300mL daily prn, MOM 30mL daily prn. * Adult immunization - Administer pneumonia vaccine, covid vaccine, flu vaccine as appropriate. * DVT prophylaxis - on Eliquis. * Atrial fibrillation - Coreg 12.5mg bidcm, Eliquis 5mg bid. * Recurrent UTI - Methenamine 1gm bid, Vitamin C 1000mg daily. * Vitamin D deficiency - D3 25mcg daily. * Depression - Citalopram 20mg qhs, stable chronic long-term use, GDR not recommended. * Neuropathic pain - Gabapentin 600mg bidcm. * Hypokalemia - KCL ER 20meq bidcm. * BPH/Urinary retention/Neurogenic bladder - Tamsulosin 0.4mg daily, chronic indwelling starr catheter. * Shortness of breath - Albuterol 2.5mg q2h prn. * Hypertension - Coreg 12.5mg bid, Losartan 100mg daily, Amlodipine 10mg daily. * Nutrition - Ensure Plus 120mL tidcm. * GI prophylaxis - Lactobacillus 1 capsule bid. * Skin irritation - Calmoseptine topical bid. * Tinea Corporis - Nystatin powder topical bid. Medications at Discharge Home Medications ascorbic acid (vitamin C) 500 mg tablet 1,000 mg PO LUNCH supplement 08/17/21 tamsulosin 0.4 mg capsule 0.4 mg PO QHS Urine retention 30 days #30 caps 09/03/21 citalopram 20 mg tablet 20 mg PO QHS depression 12/04/21 carvedilol 12.5 mg tablet 12.5 mg PO BID BP 11/30/24 cholecalciferol (vitamin D3) 25 mcg (1,000 unit) capsule 25 mcg PO DAILY supplement 02/12/24 docusate sodium 283 mg/5 mL enema (Enemeez) 283 mg MT BID constipation 02/13/24 gabapentin 600 mg tablet 600 mg PO BID nerve pain 02/21/24 apixaban 5 mg tablet (Eliquis) 5 mg PO BID blood thinner #180 tabs 03/14/24 acetaminophen 500 mg tablet 1,000 mg (2 x 500 mg) PO 1200 #0 tabs 04/27/24 acetaminophen 500 mg tablet 1,000 mg (2 x 500 mg) PO Q6H PRN PRN Pain Score 1-10 #0 tabs 04/27/24 amlodipine 10 mg tablet 10 mg PO DAILY 30 days #30 tabs 04/27/24 losartan 100 mg tablet 100 mg PO DAILY 30 days #30 tabs 04/27/24 methenamine hippurate 1 gram tablet 1 g PO BID 30 days #60 tabs 04/27/24 potassium chloride 20 mEq tablet,extended release(part/cryst) 20 meq PO BIDCM 30 days #60 tabs 04/27/24 sennosides 8.6 mg-docusate sodium 50 mg tablet (Stimulant Laxative Plus) 2 tab PO BID 30 days #120 tabs 04/27/24 Hospital Course Operations None Procedures None Summary of Care Provided Minutes Spent on Discharge: 35 Hospital Course: 78 year old male with below past medical history hospitalized for acute encephalopathy 2/2 citrobacter koseri bacteremia, UTI ruled out, pneumonia ruled out, admitted to TCU with debility, here for rehabilitation, strengthening, prior to discharge home with . 04/10/2024 Dr. Doshi: DANNY AQUINO, is a 78 M who presents to rehab for strengthening and improving after being in the hospital for an infection he has a neurogenic bladder history of spinal cord injury he has been seen in the office for follow-up initially he was managing his catheter in the bladder with condom catheter during the daytime and night catheter at night but now is gone to chronic Starr catheter. I was consulted in regards to this whether a suprapubic catheter would offer any benefit. I explained to the patient that suprapubic catheter will not prevent UTIs he will be at higher risk or just the same risk for getting UTIs with a regular catheter and a suprapubic catheter that suprapubic catheter will not prevent UTIs. Also the risk of the procedure the risk of bleeding infection chronic cystitis and bladder stone formations were discussed with the patient. I think at this point he has a continue with Starr catheter management per his wishes. Daily flushing with sterile water can help lower the risk of infections. After discussing with patient all his questions were addressed he can follow-up with me as an outpatient. 04/12/2024 Dr. Stuart: (1) Neurogenic bladder: (2) Recurrent UTI: PLAN: Ucx now with Pseudomonas fluorescens, I to zosyn, S to levaquin but pt with cipro allergy. Feeling better, wbc normal, no abd pain, no fever. CT did show stone in place, seen by urology, outpt followup planned. Will cont zosyn, plan on stop date 04/22 given recurrent infection. Discharge home with family support 05/01/2024, Recommind PT/OT/ST. Physical Exam Const alert General Appearance: cooperative HEENT normocephalic Eyes PERRL and EOMs intact bilaterally Neck supple, no JVD and no carotid bruits Resp normal respiratory effort, normal air movement and clear to auscultation bilaterally Cardio regular rate and regular rhythm GI normal to inspection, nondistended, normoactive bowel sounds, non-tender and non-distended Bladder / Kidney Exam: catheter in place urethral Extremity normal capillary refill General Extremity: Negative for edema Skin no rashes or lesions noted General Skin Exam: no breakdown Neuro moves all extremities Speech: speech abnormal Details: Positive for other (Expressive aphasia.) Motor Exam: general weakness Psych affect normal Appearance: appropriate Weight / BMI Weight Weight: 107.728 kg Body Mass Index (BMI) 33.8 ABG / Lab / Microbiology Data 04/25/24 06:50 04/25/24 06:50 Microbiology: Microbiology 04/26/24 06:40 Nasal Secretion SARS-CoV-2 Antigen (Rapid) - Final 04/05/24 22:00 Blood Culture (Wb) #2 - Left Wrist Blood Culture - Final No growth in 5 days. 04/05/24 21:50 Blood Culture (Wb) - Left Hand Blood Culture - Final No growth in 5 days. 04/05/24 17:10 Urine Catheter - Starr Urine Culture - Final Pseudomonas fluorescens 04/06/24 23:24 Mucosa - Nasopharyngeal Respiratory Panel (PCR) - Final 04/06/24 18:15 Nasal Secretion SARS-CoV-2 Antigen (Rapid) - Final D/C Instructions Discharge Diet: No restrictions Discharge Activity: Return to Normal Activity and May Shower Weight Bearing Status: Weight bearing as tolerated Call your doctor if you observe: Fever of 101 or Higher, Inability to urinate, Inability to have a bowel movement, Using more than 1 pad per hour, Shortness of breath, Dizziness, Fainting spells, Swelling in the ankles, Chest pain and Uncontrolled pain DC O2, CPAP, BIPAP Needs Home O2 Discharge instructions: No Additional Instructions: Discharge home with family support 05/01/2024, Recommind PT/OT/ST. Please Follow Up With: Caesar Doshi MD When: As needed. Meaningful Use Info Meaningful Use Meaningful Use Diagnoses (Choose all that apply): None applicable Ischemic Stroke Statin Dosing Therapy Reference: STATIN DOSE THERAPY REFERENCE: * Patients > 75 years receive moderate or high dose statin therapy. * Patients 75 years or YOUNGER should receive HIGH intensity statin dose unless contraindicated. You will be required to document reason for non-treatment if statin daily dose does not meet guidelines. HIGH DOSE STATIN THERAPY DAILY Atorvastatin > than or = to 40 mg Rosuvastatin > than or = to 20 mg Amlodipine + Atorvastatin > than or = to 2.5/40 mg Ezetimibe + Simvastatin 10/80 mg Simvastatin 80mg Discharge Plan Admission Admit Date/Time: 03/27/24 14:37 Primary Reason for Your Visit: Debility. Attending Provider: Luis Carlos Gallardo Chi Primary Care Provider: Tunde Beard Consulting Providers: Tunde Stuart; Caesar Doshi Instructions Additional Instructions / Restrictions: Discharge home with family support 05/01/2024, Recommind PT/OT/ST. Discharge Orders/Prescriptions Prescriptions: New sennosides-docusate sodium [Stimulant Laxative Plus] 8.6-50 mg Tablet 2 tab PO BID 30 Days Qty: 120 0RF acetaminophen 500 mg Tablet 1,000 mg PO 1200 Qty: 0 0RF acetaminophen 500 mg Tablet 1,000 mg PO Q6H PRN PRN (Reason: Pain Score 1-10) Qty: 0 0RF methenamine hippurate 1 gram Tablet 1 g PO BID 30 Days Qty: 60 0RF potassium chloride 20 mEq Tablet,Er Particles/Crystals 20 meq PO BIDCM 30 Days Qty: 60 0RF amlodipine 10 mg Tablet 10 mg PO DAILY 30 Days Qty: 30 0RF losartan 100 mg Tablet 100 mg PO DAILY 30 Days Qty: 30 0RF Continued citalopram 20 mg tablet 20 mg PO QHS ascorbic acid (vitamin C) 500 mg tablet 1,000 mg PO LUNCH tamsulosin 0.4 mg Capsule 0.4 mg PO QHS 30 Days Qty: 30 0RF carvedilol 12.5 mg Tablet 12.5 mg PO BID cholecalciferol (vitamin D3) 25 mcg (1,000 unit) capsule 25 mcg PO DAILY docusate sodium [Enemeez] 283 mg/5 mL enema 283 mg MT BID gabapentin 600 mg tablet 600 mg PO BID Eliquis 5 mg tablet 5 mg PO BID Qty: 180 3RF Discontinued methenamine hippurate 1 gram tablet 1 g PO BID 30 Days Qty: 60 0RF sennosides-docusate sodium [Stimulant Laxative Plus] 8.6-50 mg Tablet 2 tab PO BID Qty: 0 0RF Zosyn in dextrose (iso-osm) 3.375 gram/50 mL piggyback 3.375 g IV Q8H 4 Days vitamin E [Vitamin E-400] 180 mg PO DAILY potassium chloride 10 mEq Tablet,Er Particles/Crystals 20 meq PO DAILYCM Qty: 60 0RF Referrals / Follow Up: Caesar Doshi MD [Med Staff - Active Staff] - (Follow-up after DC from TCU) Tunde Beard DO [Primary Care Provider] - Disposition Disposition (needs filled in before D/C Order can be placed): Home, Self Care
[2024-04-27] MEDS: Tamsulosin HCl 0.4 MG Capsule PO (20:28)
[2024-04-27] MEDS: Citalopram 20 MG Tablet PO (20:29)
[2024-04-27 20:43] VITALS: PULSE 68; RESP 17
--- NOTE | 2024-04-28 02:22 | NURSING ---
Mejía draining well at this time, no issues or complaints. Mejía flushed with 60 cc of saline per order, patient tolerated well.
[2024-04-28 06:51] VITALS: PULSE 62; RESP 16
[2024-04-28] MEDS: amLODIPine 10 MG Tablet PO (07:54)
[2024-04-28] MEDS: Methenamine Hippurate 1 GM Tablet PO ×2 (07:54→22:44)
[2024-04-28] MEDS: Senna/Docusate Sodium 1 Tablet 2 TABLET PO ×2 (07:54→22:44)
[2024-04-28] MEDS: Carvedilol 12.5 MG Tablet PO ×2 (07:54→17:20)
[2024-04-28] MEDS: APIXABAN 5 MG TABLET PO ×2 (07:55→22:43)
[2024-04-28] MEDS: Cholecalciferol (VIT D3) 25 MCG TABLET (1,000 UNITS) PO (07:55)
[2024-04-28] MEDS: Ensure Plus High Protein 120 ML LIQUID PO ×3 (07:55→17:21)
[2024-04-28] MEDS: Lactobacillis Acidophilus 1 CAP PO ×2 (07:55→22:42)
[2024-04-28] MEDS: Nystatin Powder 15gm Bottle 1 APPLIC TOPICAL ×2 (07:55→22:45)
[2024-04-28] MEDS: Gabapentin 600 MG Tablet PO ×2 (07:55→17:20)
[2024-04-28] MEDS: Losartan Potassium 100 MG Tablet PO (07:55)
[2024-04-28] MEDS: Menthol/Lanolin/Calamine/Znox 113 GM Tube 1 APPLIC TOPICAL ×2 (07:55→22:42)
[2024-04-28] MEDS: Potassium Chloride Oral Tablet 20 MEQ PO ×2 (07:55→17:21)
[2024-04-28] MEDS: 0.9% Saline Lock 10 ML Syringe IV ×2 (07:56→22:41)
[2024-04-28 09:13] VITALS: BP 140/75; PULSE 71; RESP 16; TEMP 37.1; O2SAT 94
[2024-04-28] MEDS: Acetaminophen 500 MG Tablet 1000 MG PO (12:07)
[2024-04-28] MEDS: Ascorbic Acid 500 MG Tablet 1000 MG PO (12:08)
[2024-04-28] MEDS: Citalopram 20 MG Tablet PO (22:43)
[2024-04-28] MEDS: Tamsulosin HCl 0.4 MG Capsule PO (22:44)
[2024-04-29] MEDS: Ensure Plus High Protein 120 ML LIQUID PO ×2 (08:06→18:12)
[2024-04-29] MEDS: Gabapentin 600 MG Tablet PO ×2 (08:07→18:11)
[2024-04-29] MEDS: Lactobacillis Acidophilus 1 CAP PO ×2 (08:07→21:04)
[2024-04-29] MEDS: amLODIPine 10 MG Tablet PO (08:08)
[2024-04-29] MEDS: Cholecalciferol (VIT D3) 25 MCG TABLET (1,000 UNITS) PO (08:08)
[2024-04-29] MEDS: Methenamine Hippurate 1 GM Tablet PO ×2 (08:08→21:04)
[2024-04-29] MEDS: Losartan Potassium 100 MG Tablet PO (08:09)
[2024-04-29] MEDS: Carvedilol 12.5 MG Tablet PO ×2 (08:09→18:11)
[2024-04-29] MEDS: Potassium Chloride Oral Tablet 20 MEQ PO ×2 (08:09→18:11)
[2024-04-29] MEDS: APIXABAN 5 MG TABLET PO ×2 (08:10→21:04)
[2024-04-29] MEDS: Senna/Docusate Sodium 1 Tablet 2 TABLET PO ×2 (08:10→21:04)
[2024-04-29 08:14] VITALS: BP 143/72; PULSE 70; RESP 16; O2SAT 96
[2024-04-29] MEDS: Menthol/Lanolin/Calamine/Znox 113 GM Tube 1 APPLIC TOPICAL ×2 (10:28→21:06)
[2024-04-29] MEDS: Nystatin Powder 15gm Bottle 1 APPLIC TOPICAL ×2 (10:28→21:05)
[2024-04-29] MEDS: Ascorbic Acid 500 MG Tablet 1000 MG PO (12:07)
[2024-04-29] MEDS: Acetaminophen 500 MG Tablet 1000 MG PO (12:08)
[2024-04-29 16:00] VITALS: RESP 18
[2024-04-29] MEDS: Tamsulosin HCl 0.4 MG Capsule PO (21:04)
[2024-04-29] MEDS: Citalopram 20 MG Tablet PO (21:04)
[2024-04-29] MEDS: 0.9% Saline Lock 10 ML Syringe IV (21:05)
[2024-04-30] MEDS: Ensure Plus High Protein 120 ML LIQUID PO ×3 (09:34→17:31)
[2024-04-30] MEDS: Carvedilol 12.5 MG Tablet PO ×2 (09:35→17:31)
[2024-04-30] MEDS: Potassium Chloride Oral Tablet 20 MEQ PO ×2 (09:35→17:31)
[2024-04-30] MEDS: Cholecalciferol (VIT D3) 25 MCG TABLET (1,000 UNITS) PO (09:35)
[2024-04-30] MEDS: Lactobacillis Acidophilus 1 CAP PO ×2 (09:36→21:17)
[2024-04-30] MEDS: Gabapentin 600 MG Tablet PO ×2 (09:36→17:31)
[2024-04-30] MEDS: Menthol/Lanolin/Calamine/Znox 113 GM Tube 1 APPLIC TOPICAL ×2 (09:36→21:20)
[2024-04-30] MEDS: Losartan Potassium 100 MG Tablet PO (09:36)
[2024-04-30] MEDS: APIXABAN 5 MG TABLET PO ×2 (09:36→21:17)
[2024-04-30] MEDS: Methenamine Hippurate 1 GM Tablet PO ×2 (09:37→21:16)
[2024-04-30] MEDS: amLODIPine 10 MG Tablet PO (09:37)
[2024-04-30] MEDS: Nystatin Powder 15gm Bottle 1 APPLIC TOPICAL ×2 (09:38→21:21)
[2024-04-30] MEDS: Senna/Docusate Sodium 1 Tablet 2 TABLET PO ×2 (09:38→21:17)
[2024-04-30] MEDS: Ascorbic Acid 500 MG Tablet 1000 MG PO (11:53)
[2024-04-30] MEDS: Acetaminophen 500 MG Tablet 1000 MG PO (11:53)
[2024-04-30 16:00] VITALS: BP 111/60; PULSE 69; RESP 16; TEMP 36.5; O2SAT 96
[2024-04-30] MEDS: Citalopram 20 MG Tablet PO (21:17)
[2024-04-30] MEDS: Tamsulosin HCl 0.4 MG Capsule PO (21:17)
[2024-05-01] MEDS: Gabapentin 600 MG Tablet PO (08:09)
[2024-05-01] MEDS: Carvedilol 12.5 MG Tablet PO (08:09)
[2024-05-01] MEDS: Potassium Chloride Oral Tablet 20 MEQ PO (08:09)
[2024-05-01] MEDS: Lactobacillis Acidophilus 1 CAP PO (08:10)
[2024-05-01] MEDS: Methenamine Hippurate 1 GM Tablet PO (08:10)
[2024-05-01] MEDS: Losartan Potassium 100 MG Tablet PO (08:10)
[2024-05-01] MEDS: APIXABAN 5 MG TABLET PO (08:10)
[2024-05-01] MEDS: amLODIPine 10 MG Tablet PO (08:11)
[2024-05-01] MEDS: Senna/Docusate Sodium 1 Tablet 2 TABLET PO (08:11)
[2024-05-01] MEDS: Cholecalciferol (VIT D3) 25 MCG TABLET (1,000 UNITS) PO (08:11)
[2024-05-01] MEDS: Nystatin Powder 15gm Bottle 1 APPLIC TOPICAL (08:16)
[2024-05-01] MEDS: Menthol/Lanolin/Calamine/Znox 113 GM Tube 1 APPLIC TOPICAL (08:16)
[2024-05-01] MEDS: Ensure Plus High Protein 120 ML LIQUID PO ×2 (08:17→13:00)
--- NOTE | 2024-05-01 10:19 | NURSING ---
Removed PICC line per order. 41cm tubing removed, tip intact. Pressure held for a couple minutes, no bleeding at site. Patient tolerated well. Occlusive dressing applied.
--- NOTE | 2024-05-01 10:24 | NURSING ---
Called and spoke with Janna at Dr. Doshi's office, asked about starr removal. She said she spoke with Dr. Doshi and he says to remove starr and have go back to using straight caths at [place].
--- NOTE | 2024-05-01 11:39 | CASEMGMT ---
Social Work SW completed BIMS () and PHQ-2 () for MDS assessment. Mayela Cole DRUM SANDER LOCKSMITH
--- NOTE | 2024-05-01 14:48 | NURSING ---
Mejía removed at this time. 7ml removed from balloon, tip intact. states she has supplies at home to catheterize patient and that she feels confident in strait catheterizing patient at home and denies need for demonstration. Discharge instructions and medications reviewed.
[2024-05-01 15:00] VITALS: BP 127/66; PULSE 78; RESP 16; TEMP 37.1; O2SAT 97
== END 2024-05-01 15:45 | disposition home or self-care (01) | DRG 871 ==
PROVIDERS: Admitting Provider Family Medicine Geriatric Medicine; PCP Preventive Medicine Occupational Medicine; Visit Provider Family Medicine Geriatric Medicine
DX: R78.81 Bacteremia (principal); G82.54 Quadriplegia, C5-C7 incomplete; R47.01 Aphasia; Z16.39 Resistance to other specified antimicrobial drug; B35.4 Tinea corporis; B96.89 Other specified bacterial agents as the cause of diseases classified elsewhere; G62.9 Polyneuropathy, unspecified; I48.91 Unspecified atrial fibrillation; F32.A Depression, unspecified; I10 Essential (primary) hypertension; T83.511A Infection and inflammatory reaction due to indwelling urethral catheter, initial encounter; E55.9 Vitamin D deficiency, unspecified; E87.6 Hypokalemia; T83.091A Other mechanical complication of indwelling urethral catheter, initial encounter; N31.9 Neuromuscular dysfunction of bladder, unspecified; N40.1 Benign prostatic hyperplasia with lower urinary tract symptoms; R33.8 Other retention of urine; Z87.440 Personal history of urinary (tract) infections; Z79.01 Long term (current) use of anticoagulants; Z79.899 Other long term (current) drug therapy; R55 Syncope and collapse; N39.0 Urinary tract infection, site not specified; Y73.1 Therapeutic (nonsurgical) and rehabilitative gastroenterology and urology devices associated with adverse incidents
CPT/HCPCS: 36415; 36569; 71046; 74018; 80048; 81002; 82962; 85014; 85018; 85025; 87040; 87077; 87086; 87088; 87184; 87186; 87633; 87811; 92507; 92523; 94640; 97110; 97129; 97130; 97162; 97166; 97530; 97535; 97802; 97803; J2185; A4216

== ENCOUNTER → 2024-04-07 | Outpatient (CLI) | payer MEDICARE, OTHER, SELFPAY ==
--- NOTE | 2024-04-07 07:46 | CT_ITS ---
We are attempting to reach an attending provider to discuss findings. An addendum with communication details will be sent when the communication is complete. STUDY: CT ABDOMEN AND PELVIS WITH CONTRAST REASON FOR EXAM: Male, 78 years old. Renal and perinephric abscess RADIATION DOSAGE (If Supplied By Facility): CTDIvol = ( 17.40 ) mGy, DLP = ( 1232.91 ) mGycm TECHNIQUE: Transaxial images were obtained from the dome of the diaphragm to the symphysis pubis without oral contrast. Oral and amp;amp; IV Gastrografin and amp;amp; 100mL Isovue-370 was administered. Sagittal and coronal images were reconstructed. Individualized dose optimization techniques were used for this CT. COMPARISON: March 24, 2024 FINDINGS: The visualized lung bases are unremarkable. Heart is mildly enlarged. There is a very small pericardial effusion and mild coronary artery calcification There is nonspecific fatty.. There is a cyst in the anterior segment of the right lobe and a homogeneously enhancing nodule in the posterior segment likely hemangioma. Normal gallbladder and extrahepatic biliary system. Normal spleen. Normal pancreas. Normal bilateral adrenal glands. There is cortical scarring of the right kidney likely due to old inflammatory disease. . There is nonobstructing calculus and tiny cortical cyst. There are 3 cysts in the left kidney.. Normal visualized stomach. Normal small intestine. Normal colon. The appendix is visualized and appears normal. Mild atherosclerotic changes of the aorta without evidence for aneurysm. Normal inferior vena cava. Normal retroperitoneum. The prostate is enlarged encroaching upon the base of bladder which is mildly distended. There is a Mejía catheter present however it isn''t properly positioned and the balloon is inflated in the prostate. Small fat-containing umbilical hernia Small bilateral fat-containing inguinal hernias. Lumbar spine demonstrates degenerative changes CT/Abdomen/Pelvis WITH Contrast IMPRESSION: Nonobstructing right renal calculus. Bilateral renal cysts which will not require additional imaging No evidence for renal or perinephric abscess. Improperly positioned Mejía catheter with balloon inflated in the prostate which should be removed and reinserted Electronically Signed: Catrachito Barrett MD at 19:13 EST ,
== END | disposition home or self-care (01) ==
PROVIDERS: PCP Preventive Medicine Occupational Medicine; Referring Provider Family Medicine Geriatric Medicine; Visit Provider Family Medicine Geriatric Medicine
DX: N15.1 Renal and perinephric abscess (principal)
CPT/HCPCS: 74177; Q9967; A4216

== ENCOUNTER → 2024-10-17 | Outpatient (CLI) | payer MEDICARE, OTHER, SELFPAY ==
[2024-10-17 16:40] LABS: Anion Gap 11 (5-15); BUN 27 mg/dL (4-19); BUN/Creat Ratio 20.1 RATIO (10-20); Calcium,Total 9.5 mg/dL (7.6-11.0); Carbon Dioxide 23.9 mmol/L (21.0-32.0); Chloride 103 mmol/L (98-108); Glucose 98 mg/dL (70-99); Magnesium 2.5 mg/dL (1.5-2.2); Potassium 3.9 mmol/L (3.3-5.1)
== END | disposition home or self-care (01) ==
PROVIDERS: PCP Family Medicine; Referring Provider Family Medicine; Visit Provider Family Medicine
DX: E87.6 Hypokalemia (principal)
CPT/HCPCS: 36415; 80048; 83735

== ENCOUNTER 2024-11-13 15:52 | Inpatient (IN) | payer MEDICARE, SELFPAY ==
[2024-11-13] VITALS (10 sets, daily range): BP systolic 122–148; BP diastolic 53–73; PULSE 62–77; RESP 18–27; TEMP 36.8–38.9; O2SAT 92–97; BMI 38.2; BMI 38.7
--- OUTSIDE RECORDS SUMMARY | 2024-11-13 16:25 | XMS RPT_ITS | CCD ---
Author Organization [facility] ion [facility] Care Team Providers Care General Production Worker Name Role Phone Criss Mo Unavailable Unavailable Josefina FLANNERY, Lulu Deal Unavailable [phone] Criss Mo Unavailable Unavailable MALLORY MCPHERSON DO Primary Care Physician Dr. Mallory Mcpherson Primary Care Provider Dr. Ignacio Quan Attending Provider [phone] Dr. Ignacio Quan Referring Provider [phone] Dr. Mallory Mcpherson Referring Provider [phone] Saundra Hernandez Attending Provider Unavailable Dr. Mallory Mcpherson Primary Care Provider Dr. Ignacio Quan Attending Provider [phone] Dr. Ignacio Quan Referring Provider [phone] Mallory Mcpherson DO Primary Care Provider Ignacio Quan MD Unavailable Heath Mcdowell MD Unavailable Caesar Doshi MD Unavailable Dr. Luis Carlos Gallardo Chi Admit Provider Dr. Luis Carlos Gallardo Chi Other Provider Dr. Zach Lozoya Attending Provider Dr. Zach Lozoya Admit Provider Dr. Zach Lozoya Other Provider Dr. Mallory Mcpherson Primary Care Provider Dr. Ignacio Quan Attending Provider [phone] Dr. Ignacio Quan Referring Provider [phone] Dr. Mallory Mcpherson Referring Provider [phone] Saundra Hernandez Attending Provider Unavailable Ruiz OCHOA, TAR KETTLE RUNNER-C Alessandra Attending Provider MALLORY MCPHERSON DO Primary Care Physician ANNEZACH RIVERA Referring Unavailable MALLORY MCPHERSON Primary Care Unavailable SHANIKA JOSE Admitting Unavailable SHANIKA JOSE Attending Unavailable MALLORY MCPHERSON Primary Care Unavailable COREEN RUSS Admitting Unavailable COREEN RUSS M Attending Unavailable CONSULT, SURGERY - NEURO Consulting Unavail able MALLORY MCPHERSON Primary Care Unavailable LORA LANIER Referring Unavailable Kevin Correia) Unavailable [phone] Dr. Mallory Mcpherson Primary Care Provider Dr. Mallory Mcpherson Referring Provider [phone] Ruiz OCHOA, GABRIELA-C Alessandra Attending Provider Dr. Ignacio Quan Attending Provider [phone] YUMIKO MARCUM Attending Unavailable MALLORY MCPHERSON Referring Unavailable Dr. Mallory Mcpherson Primary Care Provider Dr. Mallory Mcpherson Referring Provider [phone] Ruiz OCHOA, GABRIELA-C Alessandra Attending Provider Dr. Iker Ratliff Attending Provider MD Sally Juaquin Emergency Provider [phone] Marc Cantu Attending Provider Unavailable Dr. Marc Cantu Admit Provider Unavailable Dr. Marc aCntu Other Provider Unavailable Dr. Mallory Mcpherson Primary Care Provider Dr. Mallory Mcpherson Referring Provider [phone] Dr. Mallory Mcpherson Primary Care Provider Dr. Mallory Mcpherson Referring Provider [phone] Ruiz OCHOA, GABRIELA-C Alessandra Attending Provider Dr. Mallory Mcpherson Primary Care Provider Dr. Iker Ratliff Attending Provider Dr. Mallory Mcpherson Referring Provider [phone] TAR KETTLE RUNNER, TAR KETTLE RUNNER-C Alessandra Attending Provider [place] DO, MALLORY Attending Unavailable [place] DO, MALLORY Primary Care Unavailable JESSICA AIR TRAFFIC SUPERVISOR-HOME CARE ASSISTANT, KIRBY Deal Attending Enoc lable [place] DO, MALLORY Primary Care Unavailable KY DO, MALLORY Attending Unavailable [place] DO, MALLORY Primary Care Unavailable [place] DO, MALLORY Attending Unavailable [place] DO, MALLORY Primary Care Unavailable [place] DO, MALLORY Primary Care Unavailable [place] DO, MALLORY Attending Unavailable [place] DO, MALLORY Primary Care Unavailable CLAUDE AIR TRAFFIC SUPERVISOR-HOME CARE ASSISTANT, SOMMER Attending Enoc Mcpherson DO, Dr. Griffiths Primary Care Provider [phone] Sami PITTS, Dr. Luis Carlos Tapia Admit Provider Sami PITTS, Dr. Luis Carlos Tapia Attending Provider Dr. Mallory Stuart MD Other Provider Glenda PITTS, Dr. Caesar Busch Other Provider Sami PITTS, Dr. Luis Carlos Tapia Referring Provider Dr. Mallory Mcpherson DO Referring Provider Ruiz TAR KETTLE RUNNER-C, Alessandra Attending Provider [phone] Lorena PEREZ, Dr. Rivera Primary Care Provider Lorena PEREZ, Dr. Rivera Referring Provider Saundra Hernandez Attending Provider Unavailable Sami PITTS, Dr. Luis Carlos Tapia Referring Provider Dr. Iker Ratliff MD Attending Provider [phone] Dr. Mallory Mcpherson DO Primary Care Provider [phone] Dr. Luis Carlos Gallardo MD, Chi Attending Provider Dr. Luis Carlos Gallardo MD, Chi Referring Provider Ky PEREZ, Dr. Griffiths Primary Care Provider [phone] Dr. Luis Carlos Gallardo MD, Chi Attending Provider Sami PITTS, Dr. Luis Carlos Tapia Referring Provider Ky PEREZ, Dr. Griffiths Primary Care Provider [phone] Sami PITTS, Dr. Luis Carlos Tapia Attending Provider [phone] Sami PITTS, Dr. Luis Carlos Tapia Referring Provider Dr. Miguel Carrillo DO Attending Provider Ky PEREZ, Dr. Griffiths Primary Care Provider [phone] Sami PITTS, Dr. Luis Carlos Tapia Attending Provider Sami PITTS, Dr. Luis Carlos Tapia Referring Provider Mallory Mcpherson Primary Care Unavailable Sami, Luis Carlos Chi Referring Unavailable Sami, Luis Carlos Chi Attending Unavailable Ky, Mallory Primary Care Unavailable Sade, Mallory Consulting Unavailable Marc Cantu Attending Unavailable White, Sindi L Admitting Unavailable White, Sindi L Consulting Unavailable Marc Cantu Consulting Unavailable Gaudencio Iker Attending Unavailable Miguel Carrillo Primary Care Unavailable White, Sindi L Admitting Unavailable Ky, Mallory Primary Care Unavailable Rhett Palma Attending Unavailable White, Sindi L Consulting Unavailable Sade, Mallory Consulting Unavailable Jannette Cavazoss F Consulting Unavailable Ky, Mallory Primary Care Unavailable Sami, Luis Carlos Chi Referring Unavailable Sami, Luis Carlos Chi Attending Unavailable Peña, Justen Attending Unavailable Ky, Mallory Primary Care Unavailable Sade, Mallory Consulting Unavailable White, Sindi L Admitting Unavailable Melanie, Sindi L Consulting Unavailable Marc Cantu Consulting Unavailable Ky, Mallory Primary Care Unavailable Koram, Sanjuanita Josette Consulting Unavailable Koram, Sanjuanita Josette Admitting Unavailable Yovany Yañez Attending Unavailable Sade, Mallory Consulting Unavailable Ky, Mallory Primary Care Unavailable Ky, Mallory Referring Unavailable Gaudencio, [place] Attending Unavailable Peña, Justen Attending Unavailable Peña, Justen Consulting Unavailable Ky, Mallory Primary Care Unavailable Rhett Palma Attending Unavailable White, Sindi L Admitting Unavailable White, Sindi L Consulting Unavailable Sade, Mallory Consulting Unavailable Kotsonis, Chris F Consulting Unavailable Rhett Palma Consulting Unavailable Ky, Mallory Primary Care Unavailable Koram, Sanjuanita Josette Attending Unavailable Koram, Sanjuanita Josette Consulting Unavailable Koram, Sanjuanita Josette Admitting Unavailable Ky, Mallory Primary Care Unavailable Rhett Palma Attending Unavailable Koram, Sanjuanita Josette Admitting Unavailable Koram, Sanjuanita Josette Consulting Unavailable Jesse Yee Attending Unavailable Ky, Mallory Primary Care Unavailable Lorena, Miguel Attending Unavailable Lorena, Miguel Primary Care Unavailable Lorena, Miguel Referring Unavailable Ky, Mallory Primary Care Unavailable Provider, Ed Physician Attending Unavailab Yovany Lam Attending Unavailable Mallory Stuart Consulting Unavailable Yovany Yañez Consulting Unavailable White, Sindi L Admitting Unavailable White, Sindi L Attending Unavailable White, Sindi L Consulting Unavailable Ky, Mallory Primary Care Unavailable Ky, Mallory Primary Care Unavailable Ahmet Casas Referring Unavailable Ahmet Casas Attending Unavailable Ky, Mallory Primary Care Unavailable Aakash Quinones Attending Unavailabl e Ky, Mallory Primary Care Unavailable Mallory Stuart Consulting Unavailable Sami, Luis Carlos Chi Admitting Unavailable Sami, Luis Carlos Chi Attending Unavailable Caesar Doshi Consulting Unavailable Ky, Mallory Primary Care Unavailable Sami, Luis Carlos Chi Referring Unavailable Sami, Luis Carlos Chi Attending Unavailable White, Sindi L Attending Unavailable Ky, Mallory Primary Care Unavailable Sami, Luis Carlos Chi Admitting Unavailable Sami, Luis Carlos Chi Consulting Unavailable White, Sindi L Consulting Unavailable White, Sindi L Admitting Unavailable Ky, Mallory Primary Care Unavailable Chris Cavazos Attending Unavailable Mallory Stuart Consulting Unavailable Chris Cavazos Consulting Unavailable White, Sindi L Attending Unavailable Chris Cavazos Attending Unavailable Ky, Mallory Referring Unavailable Lorena, Miguel Primary Care Unavailable Alessandra Melchor NP Attending Unavailable Lorena, Miguel Primary Care Unavailable Gaudencio, [place] Attending Unavailable Lorena, Miguel Referring Unavailable Lorena, Miguel Primary Care Unavailable Gaudencio, Iker Attending Unavailable Gaudencio, [place] Attending Unavailable Lorena, Miguel Primary Care Unavailable Ky, Mallory Primary Care Unavailable Mallory Stuart Consulting Unavailable Sami, Luis Carlos Chi Admitting Unavailable Sami, Luis Carlos Chi Attending Unavailable Ky, Mallory Primary Care Unavailable Sami, Luis Carlos Chi Referring Unavailable Sami, Luis Carlos Chi Attending Unavailable Allergies Allergy Classification Reported Allergen(s) Allergy Type Date of Onset Reaction(s) Facility (20 sources) Ciprofloxacin; Translations: [ciprofloxacin] Drug Allergy 07-13-19 22 Weal (disorder), Hives [facility] (20 sources) Sulfamethoxazole Drug Allergy 07-13-19 22 PT UNSURE OF REACTION [facility] (20 sources) Trimethoprim Drug Allergy 07-13-19 22 PT UNSURE OF REACTION [facility] (9 sources) Sulfamethoxazole / Trimethoprim; Translations: [Sulfamethoxazole / Trimethoprim] Drug Allergy 07-16-19 Eruption of skin (disorder), Antimicrobial susceptibility test (procedure) [facility] (20 sources) cefTRIAXone; Translations: [ceftriaxone] Drug Allergy 09-09-19 Eruption of skin (disorder) [facility] (1 source) cefTRIAXone Drug Allergy 08-09-19 [facility] (1 source) Ciprofloxacin Drug Allergy 08-09-19 25 [facility] (1 source) Sulfamethoxazole Drug Allergy 08-09-19 [facility] (1 source) Trimethoprim Drug Allergy 08-09-19 25 [facility] Rep[facility] Medications Current Medications Medication Drug Class(es) Dates Sig (Normalized) Sig (Original) acetaminophen 500 mg oral tablet (20 sources) Start: 04-27-2024 End: 08-08-2024 take 2 tablets by mouth every six hours as needed for pain Acetaminophen 500 mg Tablet Active 1000 mg PO EVERY 6 HOURS NEEDED as needed for Pain Score 1-10 0 0 April 27, 2024 1:00am Start: 08-15-2021 End: 12-04-2021 take 2 tablets by mouth every eight hours Acetaminophen 500 mg tablet Discontinued 1000 mg PO EVERY 8 HOURS August 17, 2021 4:32pm December 04, 2021 11:18am pain Start: 08-15-2021 End: 12-04-2021 take 1000 mg by mouth every eight hours Acetaminophen Discontinued 1000 MG PO EVERY 8 HOURS August 17, 2021 4:32pm December 04, 2021 11:18am Start: 07-25-2021 End: 08-15-2021 take 2 tablets by mouth every six hours as needed for pain Acetaminophen 500 mg Tablet Discontinued 1000 mg PO EVERY 6 HOURS as needed for Pain July 25, 2021 12:00am August 15, 2021 2:44pm Start: 07-25-2021 End: 08-15-2021 take 1000 mg by mouth every six hours Acetaminophen Discontinued 1000 MG PO EVERY 6 HOURS July 25, 2021 12:00am August 15, 2021 2:44pm Start: 07-22-2021 End: 07-25-2021 take 1 tablet by mouth every six hours as needed 650 mg, Oral, EVERY 6 HOURS NEEDED, Starting on Wed07/22/21 at 2005, Until Wed07/25/21 at 0739, Mild Pain, Oral temp > 100.4 F Maximum dose of acetaminophen is 4000 mg from all sources in 24 hours. Start: 07-12-2021 End: 07-18-2021 take 1 tablet by mouth every four hours as needed acetaminophen (TYLENOL) tablet 325 mg Start: 03-06-2016 End: 03-15-2016 Acetaminophen (Tylenol) 325 MG tablet Discontinued 650 mg PO EVERY 6 HOURS NEEDED as needed for Mild Pain (scale 0-3)/T>100.7 0 0 March 06, 2016 1:00am March 15, 2016 12:18pm Start: 03-06-2016 End: 03-15-2016 take 2 tablets by mouth every six hours as needed Acetaminophen (Tylenol) 325 MG tablet Discontinued 650 MG PO EVERY 6 HOURS NEEDED 0 March 06, 2016 1:00am March 15, 2016 12:18pm amLODIPine 5 mg oral tablet (10 sources) Dihydropyridine Calcium Channel Tomás Start: 09-20-2024 take 1 tablet by mouth once daily Amlodipine 5 mg tablet Active 5 mg PO daily 90 3 September 20, 2024 12:00am this is a decrease in dose Start: 04-27-2024 End: 09-20-2024 take 1 tablet by mouth once daily Amlodipine 10 mg Tablet Discontinued 10 mg PO DAILY 30 30 0 April 27, 2024 1:00am September 20, 2024 11:05am amoxicillin 875 mg / clavulanate 125 mg oral tablet (1 source) Penicillin-class Antibacterial Start: 12-24-2021 End: 01-03-2022 take 1 tablet by mouth every twelve hours amoxicillin-clavulanate 875 mg-125 mg oral tablet 1 tab(s), Oral, q12h, X 10 day(s), # 20 tab(s), 0 Refill(s), 01/03/22 13:59:00 EDT, Pharmacy: [facility] #[id number], 175.3, cm, 10/02/21 14:21:00 EDT, Height, 106 Start Date: 12/24/21 Stop Date: 01/03/22 Status: Ordered Pdfem-Fmql-Lguk j-Ktowim-Ix-Min (Celestino (With Collagen)) 7-7-1.5 gram Powder In Packet (18 sources) Start: 08-15-2021 Fpjgx-Vlzn-Rwlpz-Collag-Mv -Min (Celestino (With Collagen)) 7-7-1.5 gram Powder In Packet Active 1 PACKET PO TWICE DAILY WITH MEALS 0 August 15, 2021 2:50pm Start: 08-15-2021 End: 08-17-2021 Inexh-Xtbr-Zxqgj-Collag-Mv-M in (Celestino (With Collagen)) 7-7-1.5 gram Powder In Packet Discontinued 1 NMA PO TWICE DAILY WITH MEALS 0 August 15, 2021 12:00am August 17, 2021 4:32pm Start: 08-15-2021 End: 08-17-2021 Ojund-Baca-Dcpzn-Collag-Mv-M in (Celestino (With Collagen)) 7-7-1.5 gram Powder In Packet Discontinued 1 NMA PO TWICE DAILY WITH MEALS 0 August 15, 2021 12:00am August 17, 2021 4:32pm Start: 08-15-2021 End: 08-17-2021 Wlkmo-Dogu-Ffiba-Collag-Mv-M in (Celestino (With Collagen)) 7-7-1.5 gram Powder In Packet Discontinued 1 PACKET PO TWICE DAILY WITH MEALS 0 August 14, 2021 11:00pm August 17, 2021 3:32pm Start: 08-15-2021 End: 08-17-2021 Atdwm-Hnxd-Ughen-Collag-Mv-M in (Celestino (With Collagen)) 7-7-1.5 gram Powder In Packet Discontinued 1 PACKET PO TWICE DAILY WITH MEALS 0 August 15, 2021 12:00am August 17, 2021 4:32pm ascorbic acid 500 mg oral tablet (20 sources) Vitamin C Start: 08-15-2021 End: 08-17-2021 take 2 tablets by mouth at lunch Ascorbic Acid (Vitamin C) 500 mg tablet Active 1000 mg PO WITH LUNCH August 17, 2021 4:32pm supplement Start: 08-15-2021 End: 08-17-2021 take 1000 mg by mouth at lunch Ascorbic Acid (Vitamin C) Active 1000 MG PO WITH LUNCH August 17, 2021 4:32pm Start: 02-28-2019 Vitamin C qDay , 0 Refill(s) Start Date: 02/28/19 Status: Ordered Start: 02-14-2018 take 1000 mg by mouth once alexandra ly Ascorbic Acid (Vitamin C) Active 1000 MG PO DAILY February 14, 2018 10:51am bisacodyl 10 mg rectal suppository (1 source) Stimulant Laxative bisacodyl 10 MG Suppository suppository Insert 10 mg rectally once as needed for Constipation. If no results from MOM within 8 hours, administer bisacodyl (Dulcolax). If no results from bisacodyl in 4 hours, administer soap suds enema. 0 Active Calcium And Magnesium Carbonat (5 sources) Start: 09-26-19 take 1 mL by mouth once daily Calcium And Magnesium Carbonat Active 30 ML PO DAILY September 25, 2020 9:13am cholecalciferol 0.025 mg oral capsule (12 sources) Vitamin D Start: 02-12-20 take 1 capsule by mouth once daily Cholecalciferol (Vitamin D3) 25 mcg (1,000 unit) capsule Active 25 ug PO DAILY February 12, 2024 1:00am supplement Start: 03-29-2019 take 400 [IU] by augie th once daily Cholecalciferol (Vitamin D3) Active 400 UNIT PO DAILY March 29, 2019 5:02pm citalopram 30 MG Oral Capsule (20 sources) Serotonin Reuptake Inhibitor Start: 10-11-2023 End: 11-14-2024 citalopram 30 mg oral capsule Dose : 30 mg = 1 cap(s), Oral, qDay, # 100 cap(s), 3 Refill(s), Pharmacy: [facility] #[id number], 175, cm, 10/11/23 16:35:00 EDT, Height, kg, 10/11/23 16:35:00 EDT, Dosing Weight Start Date: 10/11/23 Stop Date: 11/14/24 Status: Ordered Start: 01-06-2023 citalopram 30 mg oral capsule Dose : 30 mg = 1 cap(s), Oral, qDay, # 90 cap(s), 3 Refill(s), Pharmacy: [facility] #[id number], 175.5, cm, 01/06/23 14:10:00 EDT, Height, kg, 01/06/23 14:10:00 EDT, Dosing Weight Start Date: 01/06/23 Status: Ordered Start: 12-04-2021 take 1 tablet by augie th at bedtime Citalopram 20 mg tablet Active 20 mg PO AT BEDTIME December 04, 2021 11:19am depression Start: 10-29-2021 citalopram 30 mg oral capsule Dose : 30 mg = 1 cap(s), Oral, qDay, # 90 cap(s), 3 Refill(s), Pharmacy: [facility] #[id number], 175.3, cm, 10/02/21 14:21:00 EDT, Height Start Date: 10/29/21 Status: Ordered Start: 07-22-2021 End: 07-25-2021 take 40 mg by mouth once daily at bedtime 40 mg, Oral, DAILY AT BEDTIME, First dose on Wed07/22/21 at 2100, Until Discontinued Start: 03-29-2019 take 20 mg by mouth at bedtime Citalopram Active 20 MG PO AT BEDTIME March 29, 2019 5:02pm Start: 03-29-2019 End: 12-04-2021 take 2 tablets by mouth at bedtime Citalopram 20 MG tablet Discontinued 40 mg PO AT BEDTIME 30 30 0 September 03, 2021 8:51pm December 04, 2021 11:22am depression Start: 03-29-2019 End: 12-04-2021 take 40 mg by mouth at bedtime Citalopram Discontinued 40 MG PO AT BEDTIME 30 30 September 03, 2021 8:51pm December 04, 2021 11:22am Start: 04-04-2015 End: 07-18-2021 take 1 tablet by mouth at bedtime Citalopram 40 MG tablet Discontinued 40 mg PO AT BEDTIME September 04, 2016 10:01pm February 14, 2018 10:54am D3 with Calcium (8 sources) Start: 02-28-2019 D3 with Calciu m Oral, qDay, 0 Refill(s) Start Date: 02/28/19 Status: Ordered DISABILITY PLACARD (2 sources) Start: 04-10-2015 DISABILITY RADHA CARD Disability placard end date 04/10/2019 1 Each 0 04/10/2015 Active doxycycline hyclate 100 mg oral tablet (1 source) Tetracycline-clas s Drug Start: 11-25-2023 End: 12-05-2023 doxycycline hyclate 100 mg oral tablet Dose : 100 mg = 1 tab(s), Oral, BID, X 10 day(s), # 20 tab(s), 0 Refill(s), 12/05/23 3:25:00 PM EDT, Pharmacy: [facility] #[id number], Cellulitis of right lower leg, 170, cm, 11/25/23 14:30:00 EDT, Height, 134, kg, 11/25/23 14:30:00 EDT, Dosing Weight Start Date: 11/25/23 Stop Date: 12/05/23 Status: Ordered ferrous sulfate 325 mg delayed release oral tablet (20 sources) Start: 10-02-2021 ferrous sulfat e 325 mg (65 mg elemental iron) oral delayed release tablet Dose : 325 mg = 1 tab(s), Oral, qDay, # 90 tab(s), 0 Refill(s) Start Date: 10/02/21 Status: Ordered Start: 08-15-2021 End: 12-04-2021 take 1 tablet by mouth once daily Ferrous Sulfate (Ferosul) 325 mg (65 mg iron) tablet Discontinued 325 mg PO DAILY@1200 30 30 0 September 03, 2021 8:51pm December 04, 2021 11:19am supplement Start: 04-02-2015 End: 08-15-2021 take 1 tablet by mouth three times daily Ferrous Sulfate 324 mg (65 mg iron) Tablet,Delayed Release (Dr/Ec) Discontinued 324 mg PO THREE TIMES A DAY July 18, 2021 12:00am August 15, 2021 2:46pm Supplement take 1 tablet by augie th three times daily at mealtime ferrous sulfate 325 (65 Fe) MG Tab DR tablet Take 325 mg by mouth 3 times daily with meals. 0 Active Food Supplemt, Lactose-Reduced (11 sources) Start: 05-06-2022 take 1 mL by mouth four times daily Food Supplemt, Lactose-Reduced Active 120 ML PO 4 TIMES DAILY July 18, 2021 12:52pm Start: 07-18-2021 End: 09-03-2021 take 1 mL by mouth four times daily Food Supplemt, Lactose-Reduced Discontinued 120 ML PO 4 TIMES DAILY July 17, 2021 11:00pm September 03, 2021 7:47pm Start: 07-18-2021 End: 09-03-2021 take 1 mL by mouth four times daily Food Supplemt, Lactose-Reduced Discontinued 120 ML PO 4 TIMES DAILY July 18, 2021 12:00am September 03, 2021 8:47pm Food Supplemt, Lactose-Reduced (Ensure Enlive) Liquid (2 sources) Start: 07-18-2021 take 1 mL by mouth four times daily Food Supplemt, Lactose-Reduced (Ensure Enlive) Liquid Active 120 ML PO 4 TIMES DAILY July 18, 2021 12:52pm gabapentin 600 mg oral tablet (20 sources) Anti-epilept ic Agent Start: 10-11-2023 End: 04-04-2024 take 1 tablet by mouth twice daily Gabapentin 600 mg tablet Active 600 mg PO TWICE A DAY February 21, 2024 1:00am nerve pain Start: 07-07-2023 End: 10-05-2023 gabapentin 600 mg oral table t Dose : 600 mg = 1 tab(s), Oral, BID, # 180 tab(s), 0 Refill(s), Pharmacy: [facility] #[id number], Neuropathy, 177, cm, 07/07/23 13:05:00 EDT, Height, 111.4, kg, 07/07/23 13:05:00 EDT, Dosing Weight Start Date: 07/07/23 Stop Date: 10/05/23 Status: Ordered Start: 03-24-2023 End: 06-22-2023 gabapentin 600 mg oral table t Dose : 600 mg = 1 tab(s), Oral, BID, # 180 tab(s), 0 Refill(s), Pharmacy: [facility] #[id number], Neuropathy, 175.5, cm, 01/06/23 14:10:00 EDT, Height, 123.7, kg, 01/06/23 14:10:00 EDT, Dosing Weight Start Date: 03/24/23 Stop Date: 06/22/23 Status: Ordered Start: 06-16-2022 End: 09-14-2022 gabapentin 600 mg oral table t Dose : 600 mg = 1 tab(s), Oral, TID, # 270 tab(s), 0 Refill(s), Pharmacy: [facility] #[id number], Neuropathy, 175.5, cm, 01/08/22 14:03:00 EDT, Height, 113.4, kg, 01/08/22 14:03:00 EDT, Dosing Weight Start Date: 06/16/22 Stop Date: 09/14/22 Status: Ordered Start: 12-04-2021 End: 02-21-2024 take 2 capsules by mouth twice daily Gabapentin 300 mg capsule Discontinued 600 mg PO TWICE A DAY December 04, 2021 11:19am February 21, 2024 5:57pm Nerve pain Start: 12-04-2021 take 600 mg by mouth twice alexandra ly Gabapentin Active 600 MG PO TWICE A DAY December 04, 2021 11:19am Start: 12-04-2021 take 300 mg by mouth twice alexandra ly Gabapentin Active 300 MG PO TWICE A DAY December 04, 2021 10:19am Start: 10-29-2021 End: 01-27-2022 gabapentin 600 mg oral table t Dose : 600 mg = 1 tab(s), Oral, TID, # 270 tab(s), 0 Refill(s), Pharmacy: [facility] #[id number], Neuropathy, 175.3, cm, 10/02/21 14:21:00 EDT, Height, 106, kg, 10/02/21 14:09:00 EDT, Dosing Weight Start Date: 10/29/21 Stop Date: 01/27/22 Status: Ordered Start: 08-15-2021 End: 12-04-2021 take 1 capsule by mouth three times daily Gabapentin 300 mg capsule Discontinued 300 mg PO THREE TIMES A DAY 90 30 0 September 03, 2021 8:51pm December 04, 2021 11:22am Nerve pain Start: 07-22-2021 End: 07-23-2021 take 600 mg by mouth three times daily 600 mg, Oral, 3 TIMES DAILY, First dose on Wed07/22/21 at 2200, Until Discontinued Start: 07-18-2021 End: 08-15-2021 take 200 mg by mouth three times daily Gabapentin Discontinued 200 MG PO THREE TIMES A DAY July 18, 2021 12:00am August 15, 2021 2:49pm Start: 09-25-2020 End: 06-24-2021 Gabapentin Active 0 PO TWICE A DAY September 25, 2020 9:11am 600 mg QAM, 1200 mg QPM PO twice a day; Start: 02-14-2018 End: 09-25-2020 take 2 capsules by mouth twice daily at mealtime Gabapentin 300 mg capsule Discontinued 600 mg PO TWICE DAILY WITH MEALS February 14, 2018 10:50am September 25, 2020 9:10am nerve pain Start: 02-14-2018 End: 09-25-2020 take 600 mg by mouth twice daily at mealtime Gabapentin Discontinued 600 MG PO TWICE DAILY WITH MEALS February 14, 2018 10:50am September 25, 2020 9:10am Start: 08-17-2016 End: 02-14-2018 Gabapentin 300 MG capsule Discontinued 200 mg PO TWICE DAILY WITH MEALS August 17, 2016 5:06pm February 14, 2018 10:54am Start: 08-17-2016 End: 02-14-2018 take 200 mg by mouth twice daily at mealtime Gabapentin Discontinued 200 MG PO TWICE DAILY WITH MEALS August 17, 2016 5:06pm February 14, 2018 10:54am Start: 04-04-2015 End: 03-06-2016 take 1 capsule by mouth twice daily at mealtime Gabapentin 100 MG capsule Discontinued 100 mg PO TWICE DAILY WITH MEALS June 24, 2015 12:00am March 06, 2016 10:05am Start: 04-04-2015 End: 08-15-2021 take 2 capsules by mouth three times daily Gabapentin 100 mg Capsule Discontinued 200 mg PO THREE TIMES A DAY July 18, 2021 12:00am August 15, 2021 2:49pm Nerve pain Start: 04-04-2015 End: 08-17-2016 take 1 capsule by mouth twice daily at mealtime Gabapentin 300 MG capsule Discontinued 300 mg PO TWICE DAILY WITH MEALS 0 March 06, 2016 1:00am August 17, 2016 5:06pm Start: 04-04-2015 take 2 tablets by mo [facility] twice daily GABAPENTIN 100 MG CAPS Two tablets by mouth twice daily GABAPENTIN [id number] Ignacio Quan MD herbal/nutritional product (4 sources) Start: 02-28-2019 herbal/nutritional product OTC, 0 Refill(s) Start Date: 02/28/19 Status: Ordered hydroCHLOROthiazide 25 mg / triamterene 37.5 mg oral tablet (7 sources) Potassium-spa ring Diuretic, Thiazide Diuretic Start: 08-08-2024 Triamterene-Hydrochlor othiazid 37.5-25 mg tablet Active 1 {tbl} PO EVERY MORNING August 08, 2024 12:00am Lactobacillus acidophilus (18 sources) Start: 07-25-2021 take 1 tablet by mouth once daily Lactobacillus Acidophilus (Acidophilus) Tablet,Chewable Active 1 TABLET PO DAILY July 25, 2021 9:26am Start: 07-25-2021 End: 12-04-2021 Lactobacillus Acidophilus (Acidophilus) Tablet,Chewable Discontinued 1 {tbl} PO DAILY July 25, 2021 12:00am December 04, 2021 11:20am probiotic Start: 07-25-2021 End: 12-04-2021 Lactobacillus Acidophilus (Acidophilus) Tablet,Chewable Discontinued 1 {tbl} PO DAILY July 25, 2021 12:00am December 04, 2021 11:20am Start: 07-25-2021 End: 12-04-2021 take 1 tablet by mouth once daily Lactobacillus Acidophilus (Acidophilus) Tablet,Chewable Discontinued 1 TABLET PO DAILY July 25, 2021 12:00am December 04, 2021 11:20am Start: 07-25-2021 End: 12-04-2021 take 1 tablet by mouth once daily Lactobacillus Acidophilus (Acidophilus) Tablet,Chewable Discontinued 1 TABLET PO DAILY July 24, 2021 11:00pm December 04, 2021 10:20am Start: 07-25-2021 take 1 tablet by augie once daily Lactobacillus Acidophilus (Acidophilus) Tablet,Chewable Active 1 TABLET PO DAILY July 25, 2021 12:00am lactobacillus acidophilus 0.2 mg / lactobacillus bulgaricus 0.2 mg oral tablet (1 source) take 1 tablet by mouth once daily Lactobacillus tablet Take 1 tablet by mouth daily. 0 Active lisinopril 20 mg oral tablet (20 sources) Angiotensin Converting Enzyme Inhibitor Start: 07-14-19 End: 07-15-19 take 10 mg by mouth once daily 10 mg, Oral, DAILY, First dose on 07/13/21 at 1230, Until Discontinued Start: 04-04-2015 End: 08-10-2024 take 1 tablet by mouth once daily Lisinopril 20 MG tablet Discontinued 20 mg PO DAILY June 24, 2015 12:00am March 23, 2024 2:07pm blood pressure Start: 04-04-2015 take 1 tablet by augie twice daily LISINOPRIL 5 MG TABS One tablet by mouth twice daily LISINOPRIL [id number] Ignacio Quan MD Start: 04-02-2015 End: 07-18-2021 take 1 tablet by mouth once daily LISINOPRIL 5 MG TABS One tablet by mouth daily LISINOPRIL [id number] Zach Del Rosario RN Magnesium Hydroxide (1 source) Magnesium Hydrox adilson (MILK OF MAGNESIA PO) Take 30 mL by mouth every 72 hours as needed. 0 Active methenamine hippurate 1000 m g oral tablet (20 sources) Start: 02-28-2024 End: 04-27-2024 Methenamine Hippurate 1 gram Tablet Active 1 g PO TWICE A DAY 60 30 0 April 27, 2024 1:00am Start: 07-18-2021 End: 12-04-2021 Methenamine Hippurate 1 gram Tablet Discontinued 1 g PO DAILY 30 30 0 September 03, 2021 8:51pm December 04, 2021 11:20am Supplement Start: 09-04-2016 End: 05-17-2017 take 1 tablet by mouth at bedtime Methenamine Hippurate 1 GM tablet Discontinued 1 g PO AT BEDTIME September 04, 2016 12:00am May 17, 2017 1:01pm nystatin 100 unt/mg topical powder (20 sources) Polyene Antifungal Start: 07-18-2021 Nystatin Ac tive 1 APPLIC TOPICAL THREE TIMES A DAY July 18, 2021 12:52pm Start: 07-18-2021 End: 09-03-2021 Nystatin 100,000 unit/gram P owder Discontinued 1 NMA TOPICAL TWICE A DAY July 18, 2021 12:00am September 03, 2021 8:49pm Skin breakdown Start: 07-18-2021 End: 09-03-2021 Nystatin Discontinued 1 APPL IC TOPICAL TWICE A DAY July 18, 2021 12:00am September 03, 2021 8:49pm Start: 04-04-2015 End: 05-15-2015 NYSTATIN [id number] UNIT/GM POWD apply 3 times daily NYSTATIN [id number] Zach Del Rosario RN Start: 04-04-2015 End: 05-15-2015 NYSTATIN [id number] UNIT/GM POWD apply 3 times daily NYSTATIN [id number] Zach Del Rosario RN Start: 04-02-2015 End: 07-22-2021 nystatin [id number] UNIT/GM Powd er 1 Application by Topical route 3 times daily. 1 Bottle 0 04/02/2015 Active microencapsulated potassium chloride 20 meq extended release oral tablet (20 sources) Start: 04-27-2024 take 1 tablet by mouth twice daily at mealtime Potassium Chloride 20 mEq Tablet,Er Particles/Crystals Active 20 meq PO TWICE DAILY WITH MEALS 60 30 0 April 27, 2024 1:00am Start: 02-17-2024 End: 04-27-2024 take 2 tablets by mouth once daily at mealtime Potassium Chloride 10 mEq Tablet,Er Particles/Crystals Discontinued 20 meq PO DAILY WITH MEALS 60 0 February 17, 2024 1:00am April 27, 2024 8:47pm hypokalemia Start: 05-19-2022 End: 02-17-2024 take 1 tablet by mouth once daily Potassium Chloride 10 mEq tablet,ER particles/crystals Discontinued 10 meq PO DAILY May 19, 2022 4:39pm February 17, 2024 3:28pm supplement Start: 10-02-2021 Potassium Chlo ride (Eqv-K-Tab) 20 mEq oral tablet, extended release Dose : 20 mEq = 1 tab(s), Oral, qDay, Take with food, # 30 tab(s), 0 Refill(s) Start Date: 10/02/21 Status: Ordered Start: 08-15-2021 End: 12-04-2021 Potassium Chloride 10 mEq ta blet,ER particles/crystals Discontinued 10 meq PO 1700 30 30 0 September 03, 2021 8:51pm December 04, 2021 11:22am supplement Start: 08-15-2021 End: 05-19-2022 take 1 tablet by mouth twice daily Potassium Chloride 10 mEq tablet,ER particles/crystals Discontinued 10 meq PO TWICE A DAY December 04, 2021 11:22am May 19, 2022 4:39pm supplement Start: 07-25-2021 End: 12-04-2021 take 1 tablet by mouth at breakfast Potassium Chloride 20 mEq tablet extended release Discontinued 20 meq PO WITH BREAKFAST 30 30 0 September 03, 2021 8:51pm December 04, 2021 11:22am supplement Start: 07-23-2021 End: 07-23-2021 potassium chloride 10 mEq in sterile water 100 ml premix IVPB Start: 04-02-2019 End: 07-24-2019 take 1 tablet by mouth twice daily at mealtime Potassium Chloride 20 MEQ tablet Discontinued 20 meq PO TWICE DAILY WITH MEALS 60 0 April 02, 2019 1:00am July 24, 2019 10:24am Start: 07-16-2014 End: 02-27-2015 take 1 tablet by mouth once daily POTASSIUM CHLORIDE ER 20 MEQ CR-TABS One tablet by mouth daily POTASSIUM CHLORIDE [id number] Blaire Santiago RN take 1 tablet by augie th once daily potassium chloride 20 MEQ Tab CR tablet Take 20 mEq by mouth daily. 0 Active Wheel Chair (7 sources) Start: 07-09-2021 Wheel Chair Se e Instructions, Supply 1 power wheelchair., # 1 EA, 0 Refill(s), Paraplegia, 115.9 Start Date: 07/09/21 Status: Ordered Completed/Discontinued Medications Medication Drug Class(es) Dates Sig (Normalized) Sig (Original) HYDROCODONE-ACETAM INOPHEN (6 sources) Opioid Agonist Start: 04-04-2015 End: 04-30-2016 take 1 tablet by mouth every four hours as needed NORCO 5-325 MG TABS 1 tablet by mouth every 4 hours as needed HYDROCODONE-ACETAMI NOPHEN [id number] Blaire Santiago RN Start: 04-04-2015 take 1 tablet by augie th every four hours as needed NORCO 5-325 MG TABS 1 tablet by mouth ev melecio 4 hours as needed HYDROCODONE-ACETAMINOPHEN [id number] Araseli Genao RN Start: 04-04-2015 End: 04-30-2016 take 1 tablet by mouth every four hours as needed NORCO 5-325 MG TABS 1 tablet by mouth ev melecio 4 hours as needed HYDROCODONE-ACETAMINOPHEN [id number] Blaire Santiago RN apixaban 5 mg oral tablet (20 sources) Factor Xa Inhibitor Start: 07-27-2021 End: 07-25-2021 take 1 tablet by mouth every twelve hours apixaban 5 MG tablet Take 5 mg by mouth every 12 hours. 0 07/27/2021 07/25/2021 Discontinued (Stop Taking at Discharge) Start: 07-27-2021 End: 07-25-2021 take 5 mg by mouth every twelve hours 5 mg, Oral, EVERY 12 HOURS, First dose on 07/27/21 at 0900, Until Discontinued Due to the rapid onset of action of apixaban, no overlap is needed with other anticoagulants (e.g. enoxaparin, heparin). Indications: Atrial Fibrillation Start: 07-26-2021 End: 08-25-2021 take 1 tablet by mouth every twelve hours apixaban 5 MG tablet Indications: Atrial Fibrillation Take 1 tablet by mouth every 12 hours. 60 tablet 0 07/26/2021 08/25/2021 Active Start: 07-25-2021 End: 08-30-2024 take 1 tablet by mouth twice daily Apixaban (Eliquis) 5 mg tablet Discontinued 5 mg PO TWICE A DAY 180 March 14, 2024 3:03pm August 30, 2024 3:17pm blood thinner Start: 03-17-2021 End: 03-17-2021 take 1 tablet by mouth twice daily Apixaban (Eliquis) 5 mg tablet Discontinued 5 mg PO TWICE A DAY 60 March 17, 2021 5:39pm March 17, 2021 5:50pm Wohxh-Obiz-Wcyhr-Collag-Mv-M in (Celestino (With Collagen)) 7-7-1.5 gram powder in packet (17 sources) Start: 08-17-2021 End: 09-03-2021 Uajkm-Zijz-Fhywi-Collag-Mv-M in (Celestino (With Collagen)) 7-7-1.5 gram powder in packet Discontinued 1 NMA PO TWICE DAILY WITH MEALS August 17, 2021 4:32pm September 03, 2021 8:46pm supplement Start: 08-17-2021 End: 09-03-2021 Uraxw-Blna-Xxbyq-Collag-Mv-M in (Celestino (With Collagen)) 7-7-1.5 gram powder in packet Discontinued 1 NMA PO TWICE DAILY WITH MEALS August 17, 2021 4:32pm September 03, 2021 8:46pm Start: 08-17-2021 End: 09-03-2021 Nqmun-Unbu-Kuvyd-Collag-Mv-M in (Celestino (With Collagen)) 7-7-1.5 gram powder in packet Discontinued 1 PACKET PO TWICE DAILY WITH MEALS August 17, 2021 3:32pm September 03, 2021 7:46pm Start: 08-17-2021 End: 09-03-2021 Xltpc-Enrg-Nusxm-Collag-Mv-M in (Celestino (With Collagen)) 7-7-1.5 gram powder in packet Discontinued 1 PACKET PO TWICE DAILY WITH MEALS August 17, 2021 4:32pm September 03, 2021 8:46pm aspirin 81 mg chewable tablet (20 sources) Platelet Aggregation Inhibitor, Nonsteroidal Anti-inflammatory Drug Start: 12-04-2021 End: 12-04-2021 take 1 tablet by mouth twice daily Aspirin 81 mg tablet,chewable Discontinued 81 mg PO TWICE A DAY December 04, 2021 11:18am December 04, 2021 1:01pm [facility] . Start: 10-02-2021 aspirin 81 mg oral delayed release tablet Dose : 81 mg = 1 tab(s), Oral, Daily, 0 Refill(s) Start Date: 10/02/21 Status: Ordered Start: 07-23-2021 End: 07-25-2021 81 mg, Oral, DAILY, 4 doses, First dose on Wed07/23/21 at 0900, Last dose on Wed07/26/21 at 0900 Start: 07-13-2021 End: 12-04-2021 take 1 tablet by mouth once daily Aspirin 81 mg Tablet,Chewable Discontinued 81 mg PO DAILY July 18, 2021 12:00am December 04, 2021 11:22am [facility] . atenolol 25 mg oral tablet (20 sources) beta-Adrenergic Tomás Start: 07-27-2014 End: 02-27-2015 take 0.5 tablet by mouth once daily ATENOLOL 25 MG TABS One-half tablet by mouth daily ATENOLOL [id number] Blaire Santiago RN Start: 07-10-2014 End: 07-12-2014 take 1 tablet by mouth once daily ATENOLOL 50 MG TABS One half tablet by mouth daily ATENOLOL [id number] Kat Carin FLANNERY Start: 06-08-2014 End: 06-09-2014 take 1 tablet by mouth twice daily Atenolol 50 MG tablet Discontinued 50 mg PO TWICE A DAY June 08, 2014 12:00am June 09, 2014 10:44am atorvastatin 40 mg oral tablet (20 sources) HMG-CoA Reductase Inhibitor Start: 09-05-2021 End: 12-04-2021 take 1 tablet by mouth once daily Atorvastatin 40 mg tablet Discontinued 40 mg PO DAILY September 05, 2021 12:00am December 04, 2021 11:18am Start: 07-22-2021 End: 07-25-2021 take 40 mg by mouth once daily at bedtime 40 mg, Oral, DAILY AT BEDTIME, First dose on Wed07/22/21 at 2100, Until Discontinued Start: 07-13-2021 End: 09-03-2021 take 1 tablet by mouth at bedtime Atorvastatin 40 mg Tablet Discontinued 40 mg PO AT BEDTIME July 18, 2021 12:00am September 03, 2021 8:51pm Cholestrol baclofen 10 mg oral tablet (20 sources) gamma-Aminobutyric Acid-ergic Agonist Start: 10-29-2015 End: 12-04-2021 take 1 tablet by mouth at bedtime Baclofen 10 mg Tablet Discontinued 10 mg PO AT BEDTIME 30 30 0 September 03, 2021 8:51pm December 04, 2021 11:18am Muscle spasms . benzocaine 4 mg/ml / docusate sodium 56.6 mg/ml enema (3 sources) Standardized Chemical Allergen Start: 07-14-2021 End: 07-18-2021 benzocaine-docusa te sodium (ENEMEEZ) 20-283 MG 1 enema Start: 04-02-2015 End: 07-22-2021 docusate sodium-benzocaine 2 0-283 MG Enema enema 1 enema by Rectal route every evening at 6 PM. 30 enema 0 04/02/2015 07/22/2021 Discontinued (Medication Reconciliation (suppress cancel msg)) carvedilol 12.5 mg oral tablet (20 sources) alpha-Adrenergic Tomás, beta-Adrenergic Tomás Start: 07-07-2023 End: 08-10-2024 take 1 tablet by mouth twice daily Carvedilol 12.5 mg Tablet Discontinued 12.5 mg PO TWICE A DAY February 12, 2024 1:00am August 04, 2024 3:47pm BP Start: 07-22-2021 End: 07-25-2021 take 12.5 mg by mouth every twelve hours 12.5 mg, Oral, EVERY 12 HOURS, First dose on Wed07/22/21 at 2100, Until Discontinued Start: 07-16-2021 End: 02-12-2024 take 1 tablet by mouth every twelve hours Carvedilol 12.5 mg Tablet Discontinued 12.5 mg PO Q12H 60 30 0 September 03, 2021 8:51pm February 12, 2024 3:55pm BP Start: 07-15-2021 End: 07-16-2021 carveDILOL (COREG) tablet 6. 25 mg Start: 07-14-2021 End: 07-15-2021 carveDILOL (COREG) tablet 3. 125 mg cefTRIAXone 1000 mg injection (20 sources) Cephalosporin Antibacterial Start: 03-06-2016 End: 03-15-2016 Ceftriaxone In Dextrose,Iso-Os 1 GM/50 ML Bag Discontinued 1 g IV EVERY 24 HOURS 8 0 March 06, 2016 1:00am March 15, 2016 12:20pm cefuroxime 500 mg oral tablet (20 sources) Cephalosporin Antibacterial Start: 03-06-2016 End: 03-06-2016 take 500 mg by mouth every eight hours Cefuroxime Axetil (Ceftin) 250 MG/5 ML Ml Discontinued 500 mg PO EVERY 8 HOURS 8 0 March 06, 2016 1:00am March 06, 2016 10:51am cephalexin 500 mg oral capsule (20 sources) Cephalosporin Antibacterial Start: 04-02-2019 End: 07-24-2019 take 1 capsule by mouth every eight hours Cephalexin 500 MG capsule Discontinued 500 mg PO EVERY 8 HOURS 20 April 02, 2019 1:00am July 24, 2019 10:24am ciprofloxacin 500 mg oral tablet (20 sources) Quinolone Antimicrobial Start: 09-07-2016 End: 05-17-2017 take 1 tablet by mouth twice daily Ciprofloxacin Hcl 500 MG tablet Discontinued 500 mg PO TWICE A DAY 14 0 October 02, 2016 12:00am May 17, 2017 1:01pm cyclobenzaprine hydrochloride 5 mg oral tablet (6 sources) Muscle Relaxant Start: 04-13-2016 End: 04-30-2016 take 1 tablet by mouth at bedtime FLEXERIL 5 MG TABS One tablet by mouth at bedtime. CYCLOBENZAPRINE HCL Blaire Santiago RN diazePAM 2 mg oral tablet (6 sources) Benzodiazepine Start: 04-13-2016 End: 04-30-2016 take 1 tablet by mouth four times daily as needed DIAZEPAM 2 MG TABS One tablet by mouth four times daily as needed DIAZEPAM [id number] Araseli Genao RN docusate sodium 56.6 mg/ml enema (7 sources) Start: 02-13-2024 End: 08-08-2024 Docusate Sodium (Enemeez) 283 mg/5 mL enema Discontinued 283 mg RC TWICE A DAY February 13, 2024 1:00am August 08, 2024 2:29pm constipation docusate sodium 50 mg / sennosides, fpc 8.6 mg oral tablet (20 sources) Start: 03-27-2024 End: 08-08-2024 Sennosides-Docusate Sodium (Stimulant Laxative Plus) 8.6-50 mg Tablet Discontinued 2 {tbl} PO TWICE A DAY 120 30 0 April 27, 2024 1:00am August 08, 2024 2:29pm Start: 04-24-2019 Senexon-S 50 m g-8.6 mg oral tablet 0 Refill(s) Start Date: 04/24/19 Status: Ordered Start: 04-02-2019 End: 09-25-2020 Sennosides-Docusate Sodium 1 TABLET tablet Discontinued 2 {tbl} PO TWICE A DAY 120 0 April 02, 2019 1:00am September 25, 2020 9:12am Start: 04-02-2019 End: 09-25-2020 take 2 tablets by mouth twice daily Sennosides-Docusate Sodium Discontinued 2 TABLET PO TWICE A DAY 120 April 02, 2019 1:00am September 25, 2020 9:12am 0.4 ml enoxaparin sodium 100 mg/ml prefilled syringe (6 sources) Low Molecular Weight Heparin Start: 02-27-2015 End: 05-15-2015 take 40 mg by subcutaneous injection once daily ENOXAPARIN SODIUM 40 MG/0.4ML SOLN 40 mg subq daily ENOXAPARIN SODIUM [id number] Ignacio Quan MD Enoxaparin Sodium (LOVENOX) injection 40 mg (2 sources) Start: 07-24-2021 End: 07-25-2021 Enoxaparin Sodium (LOVENOX) injection 40 mg Start: 07-13-2021 End: 07-18-2021 Enoxaparin Sodium (LOVENOX) injection 40 mg ferrous gluconate 324 mg oral tablet (9 sources) Start: 04-04-2015 End: 08-21-2015 take 1 tablet by mouth twice daily FERROUS GLUCONATE 324 MG TABS One tablet by mouth twice daily FERROUS GLUCONATE [id number] Lulu Moreno PA-C Start: 04-04-2015 [facility] FERROUS GLUCONATE 324 MG TABS One tablet by mouth three times daily FERROUS GLUCONATE [id number] Zach Del Rosario RN finasteride 5 mg oral tablet (20 sources) 5-alpha Reductase Inhibitor Start: 07-14-2021 End: 12-04-2021 take 1 tablet by mouth once daily Finasteride (Proscar) 5 mg Tablet Discontinued 5 mg PO DAILY 30 30 0 September 03, 2021 8:51pm December 04, 2021 11:22am Prostate Start: 03-01-2016 End: 05-17-2017 take 1 tablet by mouth once daily Finasteride 5 MG tablet Discontinued 5 mg PO DAILY March 01, 2016 1:00am May 17, 2017 1:01pm Food Supplemt, Lactose-Reduced Liquid (7 sources) Start: 07-18-2021 End: 09-03-2021 take 1 mL by mouth four times daily Food Supplemt, Lactose-Reduced Liquid Discontinued 120 mL PO 4 TIMES DAILY July 18, 2021 12:00am September 03, 2021 8:47pm supplement Start: 07-18-2021 End: 09-03-2021 take 1 mL by mouth four times daily Food Supplemt, Lactose-Reduced Liquid Discontinued 120 mL PO 4 TIMES DAILY July 18, 2021 12:00am September 03, 2021 8:47pm furosemide 40 mg oral tablet (9 sources) Loop Diuretic Start: 11-05-2022 End: 05-04-2023 take 1 tablet by mouth once daily Furosemide (Lasix) 40 mg tablet Discontinued 40 mg PO DAILY November 05, 2022 12:00am May 04, 2023 12:36pm guaiFENesin 20 mg/ml oral solution (1 source) Start: 07-22-2021 End: 07-25-2021 take 400 mg by mouth every six hours as needed 400 mg, Oral, EVERY 6 HOURS NEEDED, Starting on Wed07/22/21 at 2005, Until Wed07/25/21 at 0739, Cough, Congestion 1 ml hydrALAZINE hydrochloride 20 mg/ml injection (1 source) Arteriolar Vasodilator Start: 07-14-2021 End: 07-18-2021 take 10 mg intravenously every hour as needed hydrALAZINE (APRESOLINE) injection 10 mg hydroCHLOROthiazide 25 mg oral tablet (20 sources) Thiazide Diuretic Start: 02-21-2024 End: 02-21-2024 take 1 tablet by mouth once daily Hydrochlorothiazide 25 mg tablet Discontinued 25 mg PO DAILY February 21, 2024 1:00am February 21, 2024 8:56pm Start: 12-28-2023 End: 02-17-2024 take 1 tablet by mouth at bedtime Hydrochlorothiazide 25 mg tablet Discontinued 25 mg PO AT BEDTIME February 12, 2024 1:00am February 17, 2024 3:27pm bp hydroCHLOROthiazide 12.5 mg / lisinopril 20 mg oral tablet (9 sources) Thiazide Diuretic, Angiotensin Converting Enzyme Inhibitor Start: 07-10-2014 End: 02-27-2015 take 1 tablet by mouth once daily LISINOPRIL-HYDROCHLOROTHIAZIDE 20-12.5 MG TABS One tablet by mouth daily LISINOPRIL-HYDROCHLOROTHIAZIDE [id number] Kat Fair RN hydrocortisone 0.025 mg/mg topical ointment (1 source) Corticosteroid Start: 07-23-2021 End: 07-25-2021 hydrocortisone 2.5 % ointmen t 1 Application iohexol (OMNIPAQUE) 350 MG/ML injection 1-171 mL (1 source) Start: 07-12-2021 End: 07-12-2021 iohexol (OMNIPAQUE) 350 MG/M L injection 1-171 mL ketoconazole 20 mg/ml topical cream (20 sources) Azole Antifungal Start: 07-25-2021 End: 09-03-2021 Ketoconazole 2 % Cream Discontinued 1 NMA TOPICAL TWICE A DAY as needed for seborrheic dermatitis 60 0 August 15, 2021 12:00am September 03, 2021 8:48pm apply to the jones and the nasolabial folds for recurrent seborrheic dermatitis Please contact the information source for Protocol details. Start: 07-25-2021 End: 09-03-2021 Ketoconazole Discontinued 1 APPLIC TOPICAL TWICE A DAY 60 August 15, 2021 12:00am September 03, 2021 8:48pm apply to the jones and the nasolabial folds for recurrent seborrheic dermatitis labetalol hydrochloride 5 mg/ml injectable solution (2 sources) beta-Adrenergic Tomás Start: 07-12-2021 End: 07-18-2021 take 10 mg intravenously every hour as needed labetalol (NORMODYNE) injection 10 mg lactobacillus acidophilus [id number] unt / pectin 100 mg oral tablet (20 sources) Start: 08-15-2021 End: 12-04-2021 take 1 tablet by mouth once daily Acidophilus-Pect in, [place] 25 million cell -100 mg tablet Discontinued 1 {tbl} PO DAILY August 17, 2021 4:32pm December 04, 2021 11:18am Supplement LORazepam 0.5 mg oral tablet (6 sources) Benzodiazepine Start: 02-27-2015 End: 04-04-2015 LORAZEPAM 0.5 MG TABS as needed LORAZEPAM [id number] Zach Del Rosario RN losartan potassium 100 mg oral tablet (7 sources) Angiotensin 2 Receptor Tomás Start: 04-27-2024 End: 08-08-2024 take 1 tablet by mouth once daily Losartan 100 mg Tablet Discontinued 100 mg PO DAILY April 27, 2024 1:00am August 08, 2024 2:29pm melatonin 3 mg oral tablet (20 sources) Start: 07-22-2021 End: 07-25-2021 take 6 mg by mouth once daily at bedtime as needed 6 mg, Oral, DAILY AT BEDTIME NEEDED, Starting on Wed07/22/21 at 2005, Until Wed07/25/21 at 0739, Insomnia Start: 07-18-2021 End: 12-04-2021 take 1 tablet by mouth at bedtime Melatonin 3 mg Tablet Discontinued 3 mg PO AT BEDTIME July 18, 2021 12:00am December 04, 2021 11:20am Supplement meloxicam 15 mg oral tablet (6 sources) Nonsteroidal Anti-inflammatory Drug Start: 04-13-2016 End: 04-30-2016 take 1 tablet by mouth once daily MELOXICAM 15 MG TABS One tablet by mouth daily MELOXICAM [id number] Blaire Santiago RN Menthol / Zinc Oxide (20 sources) Start: 08-17-2021 End: 09-03-2021 Menthol-Zinc Oxide (Calmoseptine) 0.44-20.6 % ointment Discontinued 1 NMA TOPICAL THREE TIMES A DAY August 17, 2021 4:32pm September 03, 2021 8:48pm Skin breakdown Please contact the information source for Protocol details. Start: 08-17-2021 End: 09-03-2021 Menthol-Zinc Oxide (Calmosep roxi) 0.44-20.6 % ointment Discontinued 1 NMA TOPICAL THREE TIMES A DAY August 17, 2021 4:32pm September 03, 2021 8:48pm Please contact the information source for Protocol details. Start: 08-17-2021 End: 09-03-2021 Menthol-Zinc Oxide (Calmosep roxi) 0.44-20.6 % ointment Discontinued 1 APPLIC TOPICAL THREE TIMES A DAY August 17, 2021 3:32pm September 03, 2021 7:48pm Start: 08-17-2021 End: 09-03-2021 Menthol-Zinc Oxide (Calmosep roxi) 0.44-20.6 % ointment Discontinued 1 APPLIC TOPICAL THREE TIMES A DAY August 17, 2021 4:32pm September 03, 2021 8:48pm Start: 08-15-2021 Menthol-Zinc O xide (Calmoseptine) 0.44-20.6 % Ointment Active 1 APPLIC TOPICAL THREE TIMES A DAY 0 August 15, 2021 2:50pm Start: 08-15-2021 End: 08-17-2021 Menthol-Zinc Oxide (Calmosep roxi) 0.44-20.6 % Ointment Discontinued 1 NMA TOPICAL THREE TIMES A DAY 0 0 August 15, 2021 12:00am August 17, 2021 4:32pm Please contact the information source for Protocol details. Start: 08-15-2021 End: 08-17-2021 Menthol-Zinc Oxide (Calmosep roxi) 0.44-20.6 % Ointment Discontinued 1 NMA TOPICAL THREE TIMES A DAY 0 August 15, 2021 12:00am August 17, 2021 4:32pm Please contact the information source for Protocol details. Start: 08-15-2021 End: 08-17-2021 Menthol-Zinc Oxide (Calmosep roxi) 0.44-20.6 % Ointment Discontinued 1 APPLIC TOPICAL THREE TIMES A DAY 0 August 14, 2021 11:00pm August 17, 2021 3:32pm Start: 08-15-2021 End: 08-17-2021 Menthol-Zinc Oxide (Calmosep roxi) 0.44-20.6 % Ointment Discontinued 1 APPLIC TOPICAL THREE TIMES A DAY 0 August 15, 2021 12:00am August 17, 2021 4:32pm Menthol-Zinc Oxi de (CALMOSEPTINE EX) Apply 1 Application topically 2 times daily. 0 Active 24 hr NIFEdipine 30 mg extended release oral tablet (20 sources) Dihydropyridine Calcium Channel Tomás Start: 02-21-2024 End: 02-21-2024 take 1 tablet by mouth once daily Nifedipine 30 mg tablet extended release Discontinued 30 mg PO DAILY February 21, 2024 1:00am February 21, 2024 8:57pm blood pressure Start: 07-07-2023 End: 08-10-2024 NIFEdipine 30 mg oral tablet , extended release Dose : 30 mg = 1 tab(s), Oral, qDay, # 100 tab(s), 3 Refill(s), Pharmacy: [facility] #[id number], 177, cm, 07/07/23 13:05:00 EDT, Height, kg, 07/07/23 13:05:00 EDT, Dosing Weight Start Date: 07/07/23 Stop Date: 08/10/24 Status: Ordered Start: 11-04-2022 End: 12-28-2023 take 1 tablet by mouth once daily Nifedipine 30 mg tablet extended release Discontinued 30 mg PO DAILY 90 December 28, 2023 11:25am December 28, 2023 11:48am BP Start: 07-20-2022 NIFEdipine 30 mg oral tablet, extended release Dose : 30 mg = 1 tab(s), Oral, qDay, # 90 tab(s), 3 Refill(s), Pharmacy: [facility] #[id number], 175.5, cm, 07/08/22 15:40:00 EDT, Height, kg, 07/08/22 15:40:00 EDT, Dosing Weight Start Date: 07/20/22 Status: Ordered Start: 12-04-2021 End: 11-04-2022 Nifedipine 30 mg tablet exte nded release Discontinued 15 mg PO DAILY December 04, 2021 11:21am November 04, 2022 3:17pm BP Start: 12-04-2021 End: 11-04-2022 take 15 mg by mouth once daily Nifedipine Discontinued 15 MG PO DAILY December 04, 2021 11:21am November 04, 2022 3:17pm Start: 07-17-2021 End: 07-18-2021 NIFEdipine (PROCARDIA XL) ta blet XL 30 mg Start: 04-16-2021 NIFEdipine 30 mg oral tablet, extended release Dose : 15 mg = 0.5 tab(s), Oral, qDay, # 45 tab(s), 3 Refill(s), Pharmacy: [facility] #[id number], 175.3, cm, 04/16/21 9:09:00 EST, Height, kg, 04/16/21 9:09:00 EST, Dosing Weight Start Date: 04/16/21 Status: Ordered Start: 04-02-2020 NIFEdipine 30 mg oral tablet, extended release Dose : 15 mg = 0.5 tab(s), Oral, qDay, # 45 tab(s), 3 Refill(s), Pharmacy: [id number], 175.3, cm, 12/14/19 14:15:00 EDT, Height, kg, 04/02/20 9:46:00 EST, Dosing Weight Start Date: 04/02/20 Status: Ordered Start: 07-01-2018 End: 12-04-2021 take 1 tablet by mouth once daily Nifedipine 30 mg tablet extended release Discontinued 30 mg PO DAILY 90 3 November 04, 2021 2:32pm December 04, 2021 11:22am BP Start: 02-14-2018 End: 02-14-2018 take 1 tablet by mouth once daily Nifedipine 30 mg tablet extended release Discontinued 30 mg PO DAILY February 14, 2018 1:00am February 14, 2018 11:18am Start: 06-14-2017 End: 02-14-2018 take 2 tablets by mouth every twenty-four hours at bedtime Nifedipine 60 mg tablet extended release 24 hr Discontinued 30 mg PO AT BEDTIME 90 3 June 14, 2017 10:08am February 14, 2018 10:54am Start: 06-14-2017 End: 02-14-2018 take 30 mg by mouth at bedtime Nifedipine Discontinued 30 MG PO AT BEDTIME 90 June 14, 2017 10:08am February 14, 2018 10:54am Start: 06-24-2015 End: 06-14-2017 take 2 tablets by mouth every twenty-four hours at bedtime Nifedipine 60 MG tablet extended release 24 hr Discontinued 30 mg PO AT BEDTIME June 24, 2015 12:00am June 14, 2017 10:09am Start: 06-24-2015 End: 06-14-2017 take 30 mg by mouth at bedtime Nifedipine Discontinued 30 MG PO AT BEDTIME June 24, 2015 12:00am June 14, 2017 10:09am Start: 05-06-2015 End: 07-25-2021 take 30 mg by mouth once daily 30 mg, Oral, DAILY, Fir st dose on Wed07/23/21 at 0900, Until Discontinued Slow release product. Do not chew or crush. Start: 05-06-2015 take 1 tablet by augie th once daily PROCARDIA XL 30 MG [id number] One tablet by mouth daily NIFEDIPINE [id number] Ignacio Quan MD Start: 05-06-2015 take 1 tablet by augie th once daily PROCARDIA XL 60 MG [id number] One half tablet by mouth daily NIFEDIPINE [id number] Steffi Wing RN Start: 05-06-2015 PROCARDIA XL 6 0 MG [id number] One half tablet by mouth daily NIFEDIPINE [id number] Steffi Wing RN Start: 07-10-2014 End: 02-27-2015 take 0.5 tablet by mouth once daily NIFEDIPINE ER 60 MG [id number] One-half tablet by mouth daily NIFEDIPINE [id number] Blaire Santiago RN nitrofurantoin, macrocrystals 100 mg oral capsule (17 sources) Nitrofuran Antibacterial Start: 09-06-2021 End: 12-04-2021 take 1 capsule by mouth twice daily at mealtime Nitrofurantoin Macrocrystal 100 mg capsule Discontinued 100 mg PO TWICE A DAY 12 6 0 September 06, 2021 12:00am December 04, 2021 11:21am must administer with a meal/food nitrofurantoin, macrocrystals 25 mg / nitrofurantoin, monohydrate 75 mg oral capsule (20 sources) Nitrofuran Antibacterial Start: 02-09-2024 End: 02-21-2024 take 1 capsule by mouth twice daily Nitrofurantoin Monohyd/M-Cryst 100 mg capsule Discontinued 1 NMA PO TWICE A DAY February 12, 2024 1:00am February 21, 2024 8:57pm Start: 09-28-2023 End: 10-05-2023 nitrofurantoin macrocrystals -monohydrate 100 mg oral capsule Dose : 100 mg = 1 cap(s), Oral, BID, Take with food, X 7 day(s), # 14 cap(s), 0 Refill(s), 10/05/23 2:11:00 PM EDT, Pharmacy: [facility] #[id number], UTI (urinary tract infection), 171, cm, 07/08/23 16:22:00 EDT, Height, 111.4, kg, 07/08/23 16:22:00 EDT, Dosing Weight Start Date: 09/28/23 Stop Date: 10/05/23 Status: Ordered Start: 03-24-2023 End: 03-31-2023 nitrofurantoin macrocrystals -monohydrate 100 mg oral capsule Dose : 100 mg = 1 cap(s), Oral, BID, Take with food, X 7 day(s), # 14 cap(s), 0 Refill(s), 03/31/23 3:25:00 PM EST, Pharmacy: [facility] #[id number], UTI (urinary tract infection), bacterial, 175.5, cm, 01/06/23 14:10:00 EDT, Height, 123.7, kg, 01/06/23 14:10:00 EDT, Dosing Weight Start Date: 03/24/23 Stop Date: 03/31/23 Status: Ordered Start: 05-19-2022 End: 11-04-2022 take 1 capsule by mouth twice daily at mealtime Nitrofurantoin Monohyd/M-Cryst (Macrobid ) 100 mg capsule Discontinued 100 mg PO TWICE A DAY May 19, 2022 1:00am November 04, 2022 3:16pm must administer with a meal/food NUTRITIONAL SUPPLEMENTS (2 sources) Start: 04-04-2015 ENSURE ACTIVE LIQD One can by mouth four times daily NUTRITIONAL SUPPLEMENTS [id number] Zach Del Rosario RN Start: 04-04-2015 End: 04-12-2015 ENSURE ACTIVE LIQD One can b y mouth four times daily NUTRITIONAL SUPPLEMENTS [id number] Araseli Genao RN NUTRITIONAL SUPPLEMENTS (4 sources) Start: 04-04-2015 ENSURE ACTIVE LIQD One can by mouth four times daily NUTRITIONAL SUPPLEMENTS [id number] Zach Del Rosario RN Start: 04-04-2015 End: 04-12-2015 ENSURE ACTIVE LIQD One can b y mouth four times daily NUTRITIONAL SUPPLEMENTS [id number] Araseli Genao RN Nutritional Supplements (ENSURE COMPLETE PO) (2 sources) Nutritional Supp lements (ENSURE COMPLETE PO) take 1 Can by mouth 4 times daily. 0 Active nystatin [id number] unt/ml / triamcinolone acetonide 1 mg/ml topical cream (20 sources) Polyene Antifungal, Corticosteroid Start: 08-15-2021 End: 09-03-2021 Nystatin-Triamcinolone 100,000-0.1 unit/g-% cream Discontinued 1 NMA TOPICAL THREE TIMES A DAY August 17, 2021 4:32pm September 03, 2021 8:49pm skin breakdown apply to the reddened areas on the glans penis and beneath the foreskin Please contact the information source for Protocol details. Start: 08-15-2021 End: 09-03-2021 Nystatin-Triamcinolone Disco ntinued 1 APPLIC TOPICAL THREE TIMES A DAY August 17, 2021 4:32pm September 03, 2021 8:49pm apply to the reddened areas on the glans penis and beneath the foreskin Perflutren Lipid Microsphere ([employer]) 1.5 mL in Normal Saline Flush 0.9% 8.5 mL (1 source) Start: 07-17-2021 End: 07-17-2021 Perflutren Lipid Microsphere (DEFINITY) 1.5 mL in Normal Saline Flush 0.9% 8.5 mL piperacillin 3000 mg / tazobactam 375 mg injection (14 sources) Penicillin-class Antibacterial, beta Lactamase Inhibitor Start: 03-27-2024 End: 04-27-2024 Piperacillin-Tazobacta m-Dextrs (Zosyn In Dextrose (Iso-Osm)) 3.375 gram/50 mL piggyback Discontinued 3.375 g IV Q8H 4 0 March 27, 2024 1:00am April 27, 2024 8:46pm bacteremia/UTI Start: 10-04-2023 End: 02-12-2024 Whledqslglpl-Wwepdnhwxm-Lhvt rs (Zosyn In Dextrose (Iso-Osm)) 3.375 gram/50 mL piggyback Discontinued 3.375 g IV Q8H 5 0 October 04, 2023 12:00am February 12, 2024 3:54pm stop date 10/09/23. Dx: pseudomonas infection polyethylene glycol (MIRALAX) packet 17 g (1 source) Start: 07-12-2021 End: 07-18-2021 polyethylene glycol (MIRALAX) packet 17 g polyethylene glycol 3350 [id number] mg powder for oral solution (1 source) Osmotic Laxative Start: 07-23-2021 End: 07-25-2021 17 g, Oral, DAILY, First dose on Wed07/23/21 at 0900, Until Discontinued Probiotic Product (PROBIOTIC DAILY PO) (2 sources) End: 07-22-2021 Probiotic Product (PROBIOTIC DAILY PO) take by mouth.. 0 07/22/2021 Discontinued (Medication Reconciliation (suppress cancel msg)) Probiotic Produc t (PROBIOTIC DAILY PO) take by mouth.. 0 Active senna leaves (5 sources) Start: 07-12-2021 End: 07-18-2021 senna (SENOKOT) tablet 8.6 m g Start: 04-04-2015 End: 04-30-2016 take 1 tablet by mouth once daily SENNA CAPS One tablet by mouth daily SENNOSIDES CAPS [id number] Blaire Santiago RN Start: 04-04-2015 take 1 tablet by augie th once daily SENNA CAPS One tablet by mouth daily SENNOSIDES CAPS [id number] Zach Del Rosario RN Start: 02-27-2015 take 1 tablet by augie th twice daily SENNA 8.6 MG TABS One tablet by mouth twice daily SENNOSIDES [id number] Blaire Santiago RN Start: 02-27-2015 End: 04-04-2015 take 1 tablet by mouth twice daily SENNA 8.6 MG TABS One tablet by mouth twice daily SENNOSIDES [id number] Zach Del Rosario RN SENNOSIDES CAPS (4 sources) Start: 04-04-2015 End: 04-30-2016 take 1 tablet by mouth once daily SENNA CAPS One tablet by mouth daily SENNOSIDES CAPS [id number] Blaire Santiago RN Start: 04-04-2015 take 1 tablet by augie th once daily SENNA CAPS One tablet by mouth daily SENNOSIDES CAPS [id number] Zach Del Rosario RN sennosides, fpc 8.6 mg oral tablet (20 sources) Start: 08-15-2021 End: 09-03-2021 take 1 tablet by mouth once daily Sennosides (Dianna-Jovani) 8.6 mg tablet Discontinued 2 {tbl} PO DAILY August 17, 2021 4:32pm September 03, 2021 8:50pm Stool softner Start: 08-15-2021 End: 09-03-2021 take 2 tablets by mouth once daily Sennosides (Dianna-Jovani) 8.6 mg tablet Discontinued 2 TABLET PO DAILY August 17, 2021 4:32pm September 03, 2021 8:50pm Start: 07-23-2021 End: 07-25-2021 take 17.2 mg by mouth once daily 17.2 mg, Oral, DAILY, First dose on Wed07/23/21 at 0900, Until Discontinued Start: 07-22-2021 End: 07-25-2021 take 1 tablet by mouth every twelve hours as needed 8.6 mg, Oral, EVERY 12 HOURS NEEDED, Starting on Wed07/22/21 at 2005, Until Wed07/25/21 at 0739, Constipation If No Bowel Movement in 48 Hours Start: 04-02-2015 End: 08-15-2021 take 1 tablet by mouth once daily Sennosides 17.2 mg Tablet Discontinued 17.2 mg PO DAILY July 18, 2021 12:00am August 15, 2021 2:51pm Constipation Start: 02-27-2015 End: 04-04-2015 take 1 tablet by mouth twice daily SENNA 8.6 MG TABS One tablet by mouth twice daily SENNOSIDES [id number] Blaire Santiago RN take 2 tablets by [facility] once daily senna 8.6 MG tablet Take 17.2 mg by mouth daily. 0 Active sildenafil 100 mg oral tablet (6 sources) Phosphodiesterase 5 Inhibitor Start: 07-10-2014 End: 07-12-2014 VIAGRA 100 MG TABS 1 tablet by mouth as needed SILDENAFIL CITRATE [id number] Ignacio Quan MD 1000 ml sodium chloride 9 mg/ml injection (2 sources) Start: 07-22-2021 End: 07-25-2021 Intravenous, at 20 mL/hr, NEEDED, Starting on Wed07/22/21 at 2005, Until Wed07/25/21 at 0739, Carrier Fluid - See Admin. Inst 250mL 0.9NS to be used as carrier fluid for intermittent small volume or piggyback medication administration as needed. Infusion rate of the carrier fluid should be set at 20 mL/hr unless the rate as the intermittent medication is less than 20 mL/hr. For intermittent medications with a rate less than 20 mL/hr set the carrier fluid at that rate of the intermittent or piggy back medication. Start: 07-12-2021 End: 07-12-2021 sodium chloride (PF) 0.9 % i njection 1-100 mL tamsulosin hydrochloride 0.4 mg oral capsule (20 sources) alpha-Adrenergic Tomás Start: 04-04-2015 End: 08-10-2024 take 1 capsule by mouth at bedtime Tamsulosin 0.4 mg Capsule Discontinued 0.4 mg PO AT BEDTIME July 18, 2021 12:00am September 03, 2021 8:51pm Urine retention vitamin e 180 mg oral tablet (20 sources) Start: 02-12-2024 End: 04-27-2024 take 180 mg by mouth once daily vitamin E Discontinued 180 mg PO DAILY February 12, 2024 1:00am April 27, 2024 8:47pm supplement Start: 02-14-2018 End: 09-03-2021 Vitamin E (Dl, Acetate) 400 unit capsule Discontinued 400 U PO DAILY February 14, 2018 1:00am September 03, 2021 8:50pm supplement Problems Active Problems Problem Classification Problem Date Documented Da te Episodic/Chronic Acute cerebrovascular disease (20 sources) Cerebrovascular accident; Translations: [Cerebral infarction, unspecified] Onset: 07-12-2021 Chronic Comment on above: 07/12/21 - received T PA. L MCA occlusion. Was not on anticoagulation at the time of the stroke and is now on Eliquis. Adjustment disorders (2 sources) Adjustment disorder with depressed mood; Translations: [Adjustment disorder with depressed mood] Onset: 02-28-2015 02-28-2015 Chronic Anxiety disorders (2 sources) Mixed anxiety and depressive disorder; Translations: [Anxiety disorder, unspecified] Onset: 07-23-2021 Chronic Aortic; peripheral; and visceral artery aneurysms (8 sources) Abdominal aortic aneurysm; Translations: [Abdominal aortic aneurysm without rupture] 04-24-2019 Chronic Cardiac dysrhythmias (20 sources) Ventricular premature beats; Translations: [Sick sinus syndrome] Onset: 07-23-2014 07-23-2014 Chronic Comment on above: Intermittent AF and regular paced rhythm. He was in AF at the time of the R cerebral TIA which followed the L stroke while in REHAB. He was also very dehydrated at the time of the TIA. Chronic ulcer of skin (20 sources) Pressure ulcer of unspecified site, stage 2; Translations: [Pressure injury, stage 2] Chronic Comment on above: At the Glans penis/u rethra junction due to traction on the Mejía tubing when the clip came apart Conditions associated with dizziness or vertigo (20 sources) Lightheadedness; Translations: [Dizziness and giddiness] Episodic Conduction disorders (20 sources) Cardiac pacemaker in situ; Translations: [H/O: cardiac pacemaker in situ] Onset: 02-27-2015 02-27-2015 Chronic Comment on above: Placed for SSS. Implant, DDDR MR malathi fitzgerald 02/19/16 Deficiency and other anemia (2 sources) Iron deficiency anemia due to blood loss; Translations: [Iron deficiency anemia secondary to blood loss (chronic)] Onset: 02-24-2015 02-24-2015 Chronic Deficiency and other anemia (5 sources) Anemia; Translations: [Anemia, unspecified] Episodic Deficiency and other anemia (7 sources) Anemia, unspecified; Translations: [Anemia, unspecified] Episodic Deficiency and other anemia (18 sources) Normocytic normochromic anemia; Translations: [Anemia, unspecified] 08-15-2021 Episodic Comment on above: stable Deficiency and other anemia (17 sources) Iron deficiency anemia; Translations: [Iron deficiency anemia, unspecified] 08-17-2021 Episodic Deficiency and other anemia (10 sources) Iron deficiency anemia, unspecified; Translations: [Iron deficiency anemia, unspecified] Episodic Developmental disorders (1 source) Mixed receptive-expressive language disorder; Translations: [Mixed receptive-expressive language disorder] Chronic Disorders of lipid metabolism (20 sources) Hyperlipidemia; Translations: [Hyperlipidemia, unspecified] Chronic E Codes: Fall (10 sources) Fall; Translations: [Unspecified fall, initial encounter] 10-15-2022 Episodic Essential hypertension (20 sources) Hypertensive disorder; Translations: [Essential hypertension] Onset: 07-10-2014 07-10-2014 Chronic Fluid and electrolyte disorders (20 sources) Hypokalemia; Translations: [Hypokalemia] Onset: 04-05-2024 Episodic Fracture of upper limb (10 sources) Closed fracture of shaft of clavicle; Translations: [Closed fracture of clavicle] 09-09-2023 Episodic Genitourinary symptoms and ill-defined conditions (11 sources) Unspecified symptoms and signs involving the genitourinary system; Translations: [Retention of urine] Onset: 07-09-2023 Episodic Heart valve disorders (12 sources) Aortic valve stenosis; Translations: [Nonrheumatic aortic (valve) stenosis] 08-10-2024 Chronic Hemorrhoids (5 sources) Hemorrhoids 09-29-2022 Episodic Hyperplasia of prostate (20 sources) Benign prostatic hypertrophy with outflow obstruction; Translations: [Large prostate ] Onset: 04-05-2024 02-28-2019 Chronic Comment on above: He is straight ailin d every 6-8 hours for neurogenic bladder Joint disorders and dislocations; trauma-related (20 sources) Subluxation of joint of cervical spine; Translations: [Subluxation of C6/C7 cervical vertebrae, initial encounter] 07-22-2021 Episodic Comment on above: remote Late effects of cerebrovascular disease (20 sources) 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; Translations: [Hemiplegia and hemiparesis following cerebral infarction affecting right dominant side] Chronic Mood disorders (20 sources) Depressive disorder; Translations: [Depression] 02-27-2019 Chronic Mood disorders (1 source) Mood disorders; Translations: [Depression, unspecified] Onset: 04-05-2024 Nausea and vomiting (14 sources) Nausea and vomiting; Translations: [Nausea with vomiting, unspecified] 08-25-2022 Episodic Nutritional deficiencies (12 sources) Deficiency of macronutrients; Translations: [Unspecified protein-calorie malnutrition] Onset: 02-24-2015 02-24-2015 Chronic Other aftercare (19 sources) Long-term current use of anticoagulant; Translations: [shelter (current) use of anticoagulants] 08-15-2021 Episodic Comment on above: Continue Eliquis Other aftercare (6 sources) shelter (current) use of anticoagulants; Translations: [Long-term (current) use of anticoagulants] Episodic Other and ill-defined cerebrovascular disease (19 sources) Aneurysm of anterior communicating artery; Translations: [Cerebral aneurysm, nonruptured] 08-17-2021 Chronic Other and ill-defined cerebrovascular disease (8 sources) Cerebral aneurysm, nonruptured; Translations: [Cerebral aneurysm, nonruptured] Chronic Other circulatory disease (2 sources) History of cerebrovascular accident; Translations: [Personal history of transient ischemic attack (TIA), and cerebral infarction without residual deficits] Onset: 07-23-2021 Episodic Other circulatory disease (18 sources) Orthostatic hypotension; Translations: [Orthostatic hypotension] 08-15-2021 Episodic Other circulatory disease (6 sources) Orthostatic hypotension; Translations: [Orthostatic hypotension] Episodic Other circulatory disease (7 sources) Transient hypotension; Translations: [Hypotension, unspecified] 02-25-2024 Episodic Other circulatory disease (7 sources) H/O: atrial fibrillation; Translations: [Personal history of other diseases of the circulatory system] 10-02-2023 Episodic Other connective tissue disease (20 sources) Neuropathic pain; Translations: [Neuralgia and neuritis, unspecified] Onset: 02-24-2015 02-24-2015 Episodic Other connective tissue disease (17 sources) Spasm; Translations: [Other muscle spasm] 08-17-2021 Episodic Other connective tissue disease (5 sources) Other muscle spasm; Translations: [Spasm of muscle] Episodic Other connective tissue disease (5 sources) Neuralgia and neuritis, unspecified; Translations: [Neuralgia, neuritis, and radiculitis, unspecified] Episodic Other diseases of bladder and urethra (20 sources) Neurogenic bladder; Translations: [Neuromuscular dysfunction of bladder, unspecified] Onset: 02-24-2015 02-24-2015 Chronic Other diseases of bladder and urethra (14 sources) Neuromuscular dysfunction of bladder, unspecified; Translations: [Neurogenic bladder NOS] Chronic Other diseases of bladder and urethra (7 sources) Flaccid neurogenic bladder 07-14-2021 Chronic Other diseases of kidney and ureters (11 sources) Acute renal insufficiency; Translations: [Disorder of kidney and ureter, unspecified] 05-04-2022 Episodic Other fractures (20 sources) Closed fracture of sixth cervical vertebra; Translations: [Unspecified displaced fracture of sixth cervical vertebra, initial encounter for closed fracture] 09-13-2021 Episodic Other fractures (6 sources) Unspecified displaced fracture of sixth cervical vertebra, initial encounter for closed fracture; Translations: [Closed fracture of sixth cervical vertebra] Episodic Other gastrointestinal disorders (20 sources) Neurogenic bowel; Translations: [Neurogenic bowel, not elsewhere classified] Onset: 02-24-2015 02-24-2015 Chronic Comment on above: Continue the daily F leet's enema Other gastrointestinal disorders (20 sources) Neurogenic bowel, not elsewhere classified; Translations: [Neurogenic bowel] Chronic Other gastrointestinal disorders (18 sources) Occult blood in stools; Translations: [Other fecal abnormalities] 08-10-2021 Episodic Other gastrointestinal disorders (6 sources) Other fecal abnormalities; Translations: [Nonspecific abnormal findings in stool contents] Episodic Other injuries and conditions due to external causes (7 sources) H/O: vertebral fracture 10-02-2021 Episodic Other injuries and conditions due to external causes (7 sources) History of spinal cord injury 10-02-2021 Episodic Other lower respiratory disease (20 sources) Dyspnea on exertion; Translations: [Shortness of breath] 03-03-2021 Episodic Other male genital disorders (7 sources) H/O: male genital disorder; Translations: [Personal history of other diseases of male genital organs] 10-02-2023 Episodic Other nervous system disorders (10 sources) Neuropathy; Translations: [Polyneuropathy, unspecified] 09-20-2020 Chronic Other nervous system disorders (2 sources) Disorder of autonomic nervous system; Translations: [Disorder of the autonomic nervous system, unspecified] Onset: 02-24-2015 02-24-2015 Chronic Other nervous system disorders (2 sources) Polyneuropathy, unspecified; Translations: [Mononeuritis of unspecified site] Chronic Other nervous system disorders (20 sources) Aphasia; Translations: [Aphasia] Onset: 07-23-2021 Chronic Comment on above: 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 Improved significantly since admission. Written language better than spoken language. Other nervous system disorders (20 sources) Aphasia; Translations: [Aphasia] Chronic Other nervous system disorders (9 sources) Disorder of brain; Translations: [Encephalopathy, unspecified] 05-09-2024 Chronic Other nervous system disorders (1 source) Encephalopathy, unspecified; Translations: [Encephalopathy, unspecified] Onset: 04-05-2024 Chronic Other nervous system disorders (20 sources) Dysarthria; Translations: [Dysarthria and anarthria] 07-18-2021 Episodic Other nervous system disorders (14 sources) Dysarthria and anarthria; Translations: [Dysarthria] Episodic Other nervous system disorders (1 source) Abnormal gait; Translations: [Unspecified abnormalities of gait and mobility] Episodic Other nutritional; endocrine; and metabolic disorders (5 sources) Obese class I; Translations: [Obesity, unspecified] Chronic Other nutritional; endocrine; and metabolic disorders (2 sources) Obesity, unspecified; Translations: [Obesity, unspecified] Chronic Other nutritional; endocrine; and metabolic disorders (2 sources) Severe obesity 07-08-2022 Chronic Other nutritional; endocrine; and metabolic disorders (4 sources) Body mass index 30+ - obesity 07-07-2023 Chronic Other nutritional; endocrine; and metabolic disorders (7 sources) Adult failure to thrive syndrome; Translations: [Adult failure to thrive] 02-22-2024 Episodic Other screening for suspected conditions (not mental disorders or infectious disease) (8 sources) Raised prostate specific antigen 04-05-2020 Episodic Pancreatic disorders (not diabetes) (14 sources) Pancreatitis; Translations: [Acute pancreatitis without necrosis or infection, unspecified] 08-25-2022 Episodic Paralysis (20 sources) Paraplegia; Translations: [Incomplete paraplegia] Onset: 02-24-2015 04-13-2016 Chronic Pneumonia (except that caused by tuberculosis or sexually transmitted disease) (7 sources) Pneumonia; Translations: [Pneumonia, unspecified organism] 03-23-2024 Episodic Residual codes; unclassified (2 sources) Swelling - edema - symptom; Translations: [Edema, unspecified] Episodic Residual codes; unclassified (20 sources) Edema; Translations: [Edema, unspecified] 04-02-2019 Episodic Residual codes; unclassified (19 sources) Altered mental status; Translations: [Altered mental status, unspecified] Onset: 07-22-2021 Episodic Residual codes; unclassified (20 sources) Bilateral lower limb edema; Translations: [Localized edema] 09-05-2021 Episodic Residual codes; unclassified (17 sources) Insomnia; Translations: [Insomnia, unspecified] 09-24-2021 Episodic Residual codes; unclassified (17 sources) Acute confusion; Translations: [Disorientation, unspecified] 09-15-2021 Episodic Residual codes; unclassified (5 sources) Altered mental status, unspecified; Translations: [Altered mental status] Episodic Residual codes; unclassified (5 sources) Insomnia, unspecified; Translations: [Insomnia, unspecified] Episodic Residual codes; unclassified (7 sources) Localized edema; Translations: [Edema] Episodic Residual codes; unclassified (2 sources) Disorientation, unspecified; Translations: [Delirium due to conditions classified elsewhere] Episodic Spinal cord injury (20 sources) Central cord syndrome; Translations: [Central cord syndrome at unspecified level of cervical spinal cord, initial encounter] Onset: 02-19-2015 02-19-2015 Chronic Spondylosis; intervertebral disc disorders; other back problems (8 sources) Degeneration of lumbar intervertebral disc 04-02-2020 Chronic Spondylosis; intervertebral disc disorders; other back problems (15 sources) Backache; Translations: [Low back pain] Onset: 07-12-2014 Resolved: 04-13-2016 04-13-2016 Episodic Superficial injury; contusion (10 sources) Abrasion of face; Translations: [Abrasion of other part of head, initial encounter] 10-15-2022 Episodic Transient cerebral ischemia (20 sources) Transient cerebral ischemia; Translations: [Transient cerebral ischemic attack, unspecified] Chronic Comment on above: 07/22/21. 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; Translations: [Other bacterial infections of unspecified site] Onset: 04-05-2024 Episodic Blindness and vision defects (2 sources) Blurring of visual image; Translations: [Other visual disturbances] Onset: 02-24-2015 02-24-2015 Episodic Complication of device; implant or graft (20 sources) Catheter-associated urinary tract infection; Translations: [Infection and inflammatory reaction due to indwelling urethral catheter, initial encounter] Onset: 04-27-2024 Episodic Fever of unknown origin (16 sources) Fever; Translations: [Fever, unspecified] Onset: 02-18-2024 02-25-2024 Episodic Malaise and fatigue (20 sources) Asthenia; Translations: [Other malaise] Onset: 02-28-2024 Episodic Other circulatory disease (2 sources) Personal history of transient ischemic attack (TIA), and cerebral infarction without residual deficits; Translations: [Personal history of transient ischemic attack (TIA), and cerebral infarction without residual deficits] Onset: 07-22-2021 Episodic Other connective tissue disease (1 source) Swelling of limb; Translations: [Other specified soft tissue disorders] Onset: 05-31-2017 05-31-2017 Episodic Other connective tissue disease (1 source) Pain of bilateral upper limbs; Translations: [Pain in right arm] Onset: 06-22-2017 06-22-2017 Episodic Other injuries and conditions due to external causes (3 sources) H/O: injury; Translations: [Personal history of other (healed) physical injury and trauma] Onset: 04-13-2016 04-13-2016 Episodic Other nutritional; endocrine; and metabolic disorders (5 sources) Body mass index (BMI) 29.0-29.9, adult; Translations: [Body mass index (BMI) 28.0-28.9, adult] Onset: 09-26-2014 Resolved: 08-21-2015 01-02-2015 Episodic Other nutritional; endocrine; and metabolic disorders (4 sources) Body mass index (BMI) 28.0-28.9, adult; Translations: [Body mass index (BMI) 28.0-28.9, adult] Onset: 09-26-2014 Resolved: 08-21-2015 09-26-2014 Episodic Other nutritional; endocrine; and metabolic disorders (1 source) Adult failure to thrive; Translations: [Adult failure to thrive] Onset: 02-28-2024 Episodic Other screening for suspected conditions (not mental disorders or infectious disease) (6 sources) Electrocardiogram abnormal; Translations: [Abnormal electrocardiogram [ECG] [EKG]] Onset: 07-12-2014 Resolved: 04-13-2016 04-13-2016 Episodic Residual codes; unclassified (3 sources) FH: Hypertension; Translations: [Family history of ischemic heart disease and other diseases of the circulatory system] 07-12-2014 Episodic Septicemia (except in labor) (2 sources) Sepsis, unspecified organism; Translations: [Sepsis, unspecified organism] Onset: 02-18-2024 Episodic Spinal cord injury (2 sources) Cervical spinal cord injury; Translations: [Other incomplete lesion at unspecified level of cervical spinal cord, sequela] Onset: 02-24-2015 02-24-2015 Episodic Syncope (20 sources) Vasovagal syncope; Translations: [Vasovagal symptom] Onset: 07-10-2014 07-10-2014 Episodic Unclassified (2 sources) Onset: 07-17-2021 Resolved: 07-25-2021 07-17-2021 Urinary tract infections (20 sources) Urinary tract infectious disease; Translations: [Urinary tract infection, site not specified] Onset: 02-28-2015 03-20-2016 Episodic Comment on above: Klebsiella oxytoca-E SBL Results Test Name Value Interpretation Reference Range Facility Anion gap in Serum or Plasma Ordered By: Miguel Carrillo on 10-17-2024 Anion gap [Moles/Vol] 11 mmol/L - [facility] BUN/creatinine ratioOrdered By: Miguel Carrillo on 10-17-2024 Urea nitrogen/Creatinine [Mass ratio] 20.1 mg/mg High 10- [facility] Basic Metabolic Profile (BMP )on 10-17-2024 BUN/CRE 20.1 RATIO High - [facility] Comment on above: Performed By: #### L 501.5200, L500.2500 ####[facility] [address] [facility] [place], [address] Calcium [Mass/Vol] 9.5 mg/dL Normal 7.6-11.0 [facility] Comment on above: Performed By: #### L 501.5200, L500.2500 ####[facility] [address] [place], [address] Chloride [Moles/Vol] 103 mmol/L Normal 98-108 [facility] Comment on above: Performed By: #### L 501.5200, L500.2500 ####[facility] [address] [place], [address] CO2 [Moles/Vol] 23.9 mmol/L Normal 21.0-32.0 [facility] Comment on above: Performed By: #### L 501.5200, L500.2500 ####[facility] [address] [place], [address] Creatinine [Mass/Vol] 1.35 mg/dL High 0.70-1.20 [facility] Comment on above: Performed By: #### L 501.5200, L500.2500 ####[facility] [address] [place], [address] GAP 11 Normal 5-15 [facility] Comment on above: Performed By: #### L 501.5200, L500.2500 ####[facility] [address] [place], [address] GFR/1.73 sq M.predicted among non-blacks MDRD (S/P/Bld) [Vol rate/Area] 54 mL/min/{1.73_m2} Low >60 [facility] Comment on above: Result Comment: mL/m in/1.73m2 CKD-EPI Creatinine Equation (2020) Performed By: #### L 501.5200, L500.2500 ####[facility] [address] [place], [address] Glucose [Mass/Vol] 98 mg/dL Normal 70-99 [facility] Comment on above: Performed By: #### L 501.5200, L500.2500 ####[facility] [address] [place], [address] Potassium [Moles/Vol] 3.9 mmol/L Normal 3.3-5.1 [facility] Comment on above: Performed By: #### L 501.5200, L500.2500 ####[facility] [address] [place], [address] Sodium [Moles/Vol] 138 mmol/L Normal 133-145 [facility] Comment on above: Performed By: #### L 501.5200, L500.2500 ####[facility] [address] [place], [address] Urea nitrogen [Mass/Vol] 27 mg/dL High 4-19 [facility] Comment on above: Performed By: #### L 501.5200, L500.2500 ####[facility] [address] [place], [address] Carbon dioxide, total [Moles /volume] in Central venous bloodOrdered By: Miguel Carrillo on 10-17-2024 CO2 [Moles/Vol] 23.9 mmol/L 21.0-32.0 [facility] Chloride assayOrdered By: Cherri Carrillo on 10-17-2024 Chloride [Moles/Vol] 103 mmol/L 98-108 [facility] Glomerular filtration rate ( GFR) estimation/1.73 sq m using serum, plasma, or whole bOrdered By: Miguel Carrillo on 10-17-2024 GFR/1.73 sq M.predicted among non-blacks MDRD (S/P/Bld) [Vol rate/Area] 54 mL/min/{1.73_m2} Low >60 [facility] Comment on above: mL/min/1.73m2 CKD-EP I Creatinine Equation (2020) Magnesiumon 10-17-2024 Magnesium [Mass/Vol] 2.5 mg/dL High 1.5-2.2 [facility] Comment on above: Performed By: #### L 501.5200, L500.2500 ####[facility] [address] [place], [address] Magnesium measurement (mass/ volume)Ordered By: Miguel Carrillo on 10-17-2024 Magnesium (Unsp spec) [Mass/Vol] 2.5 mg/dL High 1.5-2.2 [facility] Potassium measurement (mass/ volume)Ordered By: Miguel Averyr on 10-17-2024 Potassium (Unsp spec) [Mass/Vol] 3.9 mmol/L 3.3-5.1 [facility] Serum creatinine measurement (mass/volume)Ordered By: Miguel Carrillo on 10-17-2024 Creatinine [Mass/Vol] 1.35 mg/dL High 0.70-1.20 [facility] Serum glucose measurement (m ass/volume)Ordered By: Miguel Carrillo on 10-17-2024 Glucose [Mass/Vol] 98 mg/dL 70-99 [facility] Serum or plasma calcium nicole urement (mass/volume)Ordered By: Miguel Carrillo on 10-17-2024 Calcium [Mass/Vol] 9.5 mg/dL 7.6-11.0 [facility] Serum or plasma urea nitroge n measurement (mass/volume)Ordered By: Miguel Carrillo on 10-17-2024 Urea nitrogen [Mass/Vol] 27 mg/dL High 4-19 [facility] Sodium levelOrdered By: Dario Carrillo on 10-17-2024 Sodium [Moles/Vol] 138 mmol/L 133-145 [facility] Re-Evalution OTon 10-03-2024 Re-Evalution OT Normal [facility] SP/HP.SPREEVon 09-13-2024 SP/HP.SPREEV Normal [facility] Re-Evaluation - PT (1)on Re-Evaluation - PT (1) Normal [facility] Pacemaker Checkon 08-16-2024 Pacemaker Check Normal [facility] Cardiology Visit Reporton Cardiology Visit Report Normal [facility] Re-Evaluation - PT (1)on Re-Evaluation - PT (1) Normal [facility] Re-Evalution OTon 07-10-2024 Re-Evalution OT Normal [facility] SP/HP.SP.Josh 06-15-2024 SP/HP.SP.EV Normal [facility] Inital Evaluation (1) - PTon 05-25-2024 Inital Evaluation (1) - PT Normal [facility] OT General Evaluationon OT General Evaluation Normal [facility] Basic Metabolic Profile (BMP )on 05-02-2024 BUN Normal 09-29 [facility] Comment on above: Result Comment: Canc elled via OM: Order cancelled - Patient discharged Performed By: #### L 500.2500, L100.0100 ####[facility] [address] [place], [address] BUN/CRE Normal 10-20 [facility] Comment on above: Result Comment: Canc elled via OM: Order cancelled - Patient discharged Performed By: #### L 500.2500, L100.0100 ####[facility] [address] [place], [address] CA,Total Normal 8.5-10.1 [facility] Comment on above: Result Comment: Canc elled via OM: Order cancelled - Patient discharged Performed By: #### L 500.2500, L100.0100 ####[facility] [address] [place], [address] CL Normal 98-107 [facility] Comment on above: Result Comment: Canc elled via OM: Order cancelled - Patient discharged Performed By: #### L 500.2500, L100.0100 ####[facility] [address] [place], [address] CO2 Normal 21.0-32.0 [facility] Comment on above: Result Comment: Canc elled via OM: Order cancelled - Patient discharged Performed By: #### L 500.2500, L100.0100 ####[facility] [address] [place], [address] CREAT,SERUM Normal 0.70-1.30 [facility] Comment on above: Result Comment: Canc elled via OM: Order cancelled - Patient discharged Performed By: #### L 500.2500, L100.0100 ####[facility] [address] [place], [address] EST GFR Normal >60 [facility] Comment on above: Result Comment: Canc elled via OM: Order cancelled - Patient discharged Performed By: #### L 500.2500, L100.0100 ####[facility] [address] [place], [address] EST GFR - AA Normal >60 [facility] Comment on above: Result Comment: Canc elled via OM: Order cancelled - Patient discharged Performed By: #### L 500.2500, L100.0100 ####[facility] [address] [place], [address] GAP Normal 5-15 [facility] Comment on above: Result Comment: Canc elled via OM: Order cancelled - Patient discharged Performed By: #### L 500.2500, L100.0100 ####[facility] [address] [place], [address] GLU Normal 74-106 [facility] Comment on above: Result Comment: Canc elled via OM: Order cancelled - Patient discharged Performed By: #### L 500.2500, L100.0100 ####[facility] [address] [place], [address] Potassium Normal 3.5-5.1 [facility] Comment on above: Result Comment: Canc elled via OM: Order cancelled - Patient discharged Performed By: #### L 500.2500, L100.0100 ####[facility] [address] [place], [address] Basic Metabolic Profile (BMP) Normal 136-145 [facility] Comment on above: Result Comment: Canc elled via OM: Order cancelled - Patient discharged Performed By: #### L 500.2500, L100.0100 ####[facility] [address] [place], [address] CBC W/Diff, Automatedon - Absolute Neut Normal 2.0-7.7 [facility] Comment on above: Result Comment: Canc elled via OM: Order cancelled - Patient discharged Performed By: #### L 500.2500, L100.0100 ####[facility] [address] [place], [address] HCT Normal 40-54 [facility] Comment on above: Result Comment: Canc elled via OM: Order cancelled - Patient discharged Performed By: #### L 500.2500, L100.0100 ####[facility] [address] [place], [address] HGB Normal 13.0-16.5 [facility] Comment on above: Result Comment: Canc elled via OM: Order cancelled - Patient discharged Performed By: #### L 500.2500, L100.0100 ####[facility] [address] [place], [address] MCH Normal 27.0-32.0 [facility] Comment on above: Result Comment: Canc elled via OM: Order cancelled - Patient discharged Performed By: #### L 500.2500, L100.0100 ####[facility] [address] [place], [address] MCHC Normal 32-36 [facility] Comment on above: Result Comment: Canc elled via OM: Order cancelled - Patient discharged Performed By: #### L 500.2500, L100.0100 ####[facility] [address] [place], [address] MCV Normal 80-94 [facility] Comment on above: Result Comment: Canc elled via OM: Order cancelled - Patient discharged Performed By: #### L 500.2500, L100.0100 ####[facility] [address] [place], [address] NEUT% Normal 47-70 [facility] Comment on above: Result Comment: Canc elled via OM: Order cancelled - Patient discharged Performed By: #### L 500.2500, L100.0100 ####[facility] [address] [place], [address] PLT Normal 150-450 [facility] Comment on above: Result Comment: Canc elled via OM: Order cancelled - Patient discharged Performed By: #### L 500.2500, L100.0100 ####[facility] [address] [place], [address] RBC Normal 4.6-6.2 [facility] Comment on above: Result Comment: Canc elled via OM: Order cancelled - Patient discharged Performed By: #### L 500.2500, L100.0100 ####[facility] [address] [place], [address] RDW CV Normal 11.6-14.6 [facility] Comment on above: Result Comment: Canc elled via OM: Order cancelled - Patient discharged Performed By: #### L 500.2500, L100.0100 ####[facility] [address] [place], [address] RDW SD Normal 35.1-43.9 [facility] Comment on above: Result Comment: Canc elled via OM: Order cancelled - Patient discharged Performed By: #### L 500.2500, L100.0100 ####[facility] [address] [place], [address] WBC Normal 4.4-11.0 [facility] Comment on above: Result Comment: Canc elled via OM: Order cancelled - Patient discharged Performed By: #### L 500.2500, L100.0100 ####[facility] [address] [place], [address] COVID 19 AG RAPID (RN RICHY T)on 04-26-2024 SARS-CoV-2 (COVID-19) RNA ALEXYS+probe Ql (Unsp spec) Normal [facility] Comment on above: Performed By: #### M 100.505 ####[facility] [address] [place], [address] COVID-19 virus antigen assay Ordered By: Luis Carlos Gallardo on 04-26-2024 SARS-CoV-2 (COVID-19) Ag IA.rapid Ql (Resp) [facility] Absolute lymphocyte countOrd ered By: Luis Carlos Gallardo on 04-25-2024 Lymphocytes Auto (Unsp spec) [#/Vol] 0.89 10*3/uL 0.83-4.51 [facility] Absolute neutrophil countOrd ered By: [facility] 04-25-2024 Neutrophils (Bld) [#/Vol] 4.4 10*3/uL 2.0-7.7 [facility] Automated lymphocyte count a s percentage of total leukocytesOrdered By: Luis Carlos Gallardo on 04-25-2024 Lymphocytes/100 WBC Auto (Unsp spec) 14.5 % Low 19-41 [facility] Basic Metabolic Profile (BMP )on 04-25-2024 BUN/CRE 29.8 RATIO High 10-20 [facility] Comment on above: Performed By: #### L 500.2500, L100.0100 ####[facility] [address] [place], [address] CA,Total 8.7 mg/dL Normal 8.5-10.1 [facility] Comment on above: Performed By: #### L 500.2500, L100.0100 ####[facility] [address] [place], [address] Chloride [Moles/Vol] 110 mmol/L High 98-107 [facility] Comment on above: Performed By: #### L 500.2500, L100.0100 ####[facility] [address] [place], [address] CO2 [Moles/Vol] 25.0 mmol/L Normal 21.0-32.0 [facility] Comment on above: Performed By: #### L 500.2500, L100.0100 ####[facility] [address] [place], [address] Creatinine [Mass/Vol] 0.80 mg/dL Normal 0.70-1.30 [facility] Comment on above: Result Comment: The validity of the calculated GFR GFRAA in patients over70 years has not been determined. Clinical correlation isessential. Performed By: #### L 500.2500, L100.0100 ####[facility] [address] [place], [address] ECRCL 95.04 ml/min Normal [facility] Comment on above: Performed By: #### L 500.2500, L100.0100 ####[facility] [address] [place], [address] EST GFR - AA 119 mL/min Normal >60 [facility] Comment on above: Result Comment: Afri can Guamanian GFR Calc Performed By: #### L 500.2500, L100.0100 ####[facility] [address] [place], [address] GAP 4 Low 5-15 [facility] Comment on above: Performed By: #### L 500.2500, L100.0100 ####[facility] [address] [place], [address] GFR/1.73 sq M.predicted among non-blacks MDRD (S/P/Bld) [Vol rate/Area] 99 mL/min/{1.73_m2} Normal >60 [facility] Comment on above: Result Comment: Non- GFR Calc Performed By: #### L 500.2500, L100.0100 ####[facility] [address] [place], [address] Glucose [Mass/Vol] 80 mg/dL Normal 74-106 [facility] Comment on above: Performed By: #### L 500.2500, L100.0100 ####[facility] [address] [place], [address] Potassium [Moles/Vol] 4.0 mmol/L Normal 3.5-5.1 [facility] Comment on above: Performed By: #### L 500.2500, L100.0100 ####[facility] [address] [place], [address] Sodium [Moles/Vol] 139 mmol/L Normal 136-145 [facility] Comment on above: Performed By: #### L 500.2500, L100.0100 ####[facility] [address] [place], [address] Urea nitrogen [Mass/Vol] 24 mg/dL High 7-18 [facility] Comment on above: Performed By: #### L 500.2500, L100.0100 ####[facility] [address] [place], [address] Basophil percentageOrdered B y: Luis Carlos Martinezok on 04-25-2024 Basophils/100 WBC (Bld) 0.7 % 0-1 [facility] Blood urea nitrogen (BUN)/cr eatinine ratioOrdered By: Luis Carlos Gallardo on 04-25-2024 Urea nitrogen/Creatinine [Mass ratio] 29.8 mg/mg High 10-20 [facility] CBC W/Diff, Automatedon 04-15 Absolute Lymph 0.89 X10 3/uL Normal 0.83-4.51 [facility] Comment on above: Performed By: #### L 500.2500, L100.0100 ####[facility] [address] [place], [address] Absolute Neut 4.4 X10 3/uL Normal 2.0-7.7 [facility] Comment on above: Performed By: #### L 500.2500, L100.0100 ####[facility] [address] [place], [address] Basophils/100 WBC (Bld) 0.7 % Normal 0-1 [facility] Comment on above: Performed By: #### L 500.2500, L100.0100 ####[facility] [address] [place], [address] Eosinophils/100 WBC (Bld) 3.8 % Normal 0-5 [facility] Comment on above: Performed By: #### L 500.2500, L100.0100 ####[facility] [address] [place], [address] Erythrocyte distribution width (RBC) [Ratio] 15.9 % High 11.6-14.6 [facility] Comment on above: Performed By: #### L 500.2500, L100.0100 ####[facility] [address] [place], [address] Hematocrit (Bld) [Volume fraction] 29.8 % Low 40-54 [facility] Comment on above: Performed By: #### L 500.2500, L100.0100 ####[facility] [address] [place], [address] Hemoglobin (Bld) [Mass/Vol] 9.9 g/dL Low 13.0-16.5 [facility] Comment on above: Performed By: #### L 500.2500, L100.0100 ####[facility] [address] [place], [address] IG% 0.500 Normal 0.0-0.9 [facility] Comment on above: Result Comment: IG% - Immature Granulocytes (promyelocytes, myelocytes andmetamyelocytes) > 1% indicates that a LEFT SHIFT is Present. Performed By: #### L 500.2500, L100.0100 ####[facility] [address] [place], [address] Lymphocytes/100 WBC (Bld) 14.5 % Low 19-41 [facility] Comment on above: Performed By: #### L 500.2500, L100.0100 ####[facility] [address] [place], [address] MCH (RBC) [Entitic mass] 29.0 pg Normal 27.0-32.0 [facility] Comment on above: Performed By: #### L 500.2500, L100.0100 ####[facility] [address] [place], [address] MCHC (RBC) [Mass/Vol] 33.2 g/dL Normal 32-36 [facility] Comment on above: Performed By: #### L 500.2500, L100.0100 ####[facility] [address], [address] MCV (RBC) [Entitic vol] 87.4 fL Normal 80-94 [facility] Comment on above: Performed By: #### L 500.2500, L100.0100 ####[facility] [address] [place], [address] Monocytes/100 WBC (Bld) 8.2 % Normal 0-10 [facility] Comment on above: Performed By: #### L 500.2500, L100.0100 ####[facility] [address] [place], [address] Neutrophils/100 WBC (Bld) 72.3 % High 47-70 [facility] Comment on above: Performed By: #### L 500.2500, L100.0100 ####[facility] [address] [place], [address] Nucleated RBC (Bld) [#/Vol] 0 10*3/uL Normal 0-5 [facility] Comment on above: Performed By: #### L 500.2500, L100.0100 ####[facility] [address] [place], [address] Platelet mean volume (Bld) [Entitic vol] 9.8 fL Normal 6.2-12.0 [facility] Comment on above: Performed By: #### L 500.2500, L100.0100 ####[facility] [address] [place], [address] Platelets (Bld) [#/Vol] 178 10*3/uL Normal 150-450 [facility] Comment on above: Performed By: #### L 500.2500, L100.0100 ####[facility] [address] [place], [address] RBC (Bld) [#/Vol] 3.41 10*6/uL Low 4.6-6.2 [facility] Comment on above: Performed By: #### L 500.2500, L100.0100 ####[facility] [address] [place], [address] RDW SD 50.5 fl High 35.1-43.9 [facility] Comment on above: Performed By: #### L 500.2500, L100.0100 ####[facility] [address] [place], [address] WBC (Bld) [#/Vol] 6.1 10*3/uL Normal 4.4-11.0 [facility] Comment on above: Performed By: #### L 500.2500, L100.0100 ####[facility] [address] [place], [address] Carbon dioxide measurementOr dered By: Luis Carlos Gallardo 04-25-2024 CO2 [Moles/Vol] 25.0 mmol/L 21.0-32.0 [facility] Chloride measurementOrdered By: Luis Carlos Gallardo 04-25-2024 Chloride [Moles/Vol] 110 mmol/L High 98-107 [facility] Eosinophil percentageOrdered By: Luis Carlos Gallardo 04-25-2024 Eosinophils/100 WBC (Bld) 3.8 % 0-5 [facility] Erythrocyte distribution wid th ratioOrdered By: Luis Carlos Martinez04-25-2024 Erythrocyte distribution width (RBC) [Ratio] 15.9 % High 11.6-14.6 [facility] Erythrocyte distribution wid th standard deviationOrdered By: Luis Carlos Gallardo 04-25-2024 Erythrocyte distribution width (RBC) [Ratio] 50.5 fl High 35.1-43.9 [facility] Glomerular filtration rate ( GFR) estimationOrdered By: Luis Carlos Gallardo on 04-25-2024 GFR/1.73 sq M.predicted among non-blacks MDRD (S/P/Bld) [Vol rate/Area] 99 mL/min/{1.73_m2} >60 [facility] Comment on above: Non- GFR Calc Glucose measurementOrdered B y: Luis Carlos Gallardo on 04-25-2024 Glucose [Mass/Vol] 80 mg/dL 74-106 [facility] Hematocrit Auto (Bld) [Volum e fraction]Ordered By: Luis Carlos Gallardo 04-25-2024 Hematocrit (Bld) [Volume fraction] 29.8 % Low 40-54 [facility] Hemoglobin measurementOrdere d By: Luis Carlos Gallardo 04-25-2024 Hemoglobin (Bld) [Mass/Vol] 9.9 g/dL Low 13.0-16.5 [facility] Immature granulocytes/100 WB C Auto (Bld)Ordered By: Luis Carlos Gallardo 04-25-2024 Immature granulocytes/100 WBC (Bld) 0.500 % 0.0-0.9 [facility] Comment on above: IG% - Immature Granu locytes (promyelocytes, myelocytes and metamyelocytes) > 1% indicates that a LEFT SHIFT is Present. MCV (mean corpuscular volume ) determinationOrdered By: Luis Carlos Gallardo 04-25-2024 MCV (RBC) [Entitic vol] 87.4 fL 80-94 [facility] Mean corpuscular hemoglobin (MCH) determinationOrdered By: Luis Carlos Gallardo 04-25-2024 MCH (RBC) [Entitic mass] 29.0 pg 27.0-32.0 [facility] Mean corpuscular hemoglobin concentration (MCHC) determinationOrdered By: Luis Carlos Gallardo 04-25-2024 MCHC (RBC) [Mass/Vol] 33.2 g/dL 32-36 [facility] Mean platelet volume determi nationOrdered By: Luis Carlos Gallardo 04-25-2024 Platelet mean volume (Bld) [Entitic vol] 9.8 fL 6.2-12.0 [facility] Monocyte percentageOrdered B y: Luis Carlos Gallardo 04-25-2024 Monocytes/100 WBC (Bld) 8.2 % 0-10 [facility] Neutrophil percentageOrdered By: Luis Carlos Gallardo on 04-25-2024 Neutrophils/100 WBC (Bld) 72.3 % High 47-70 [facility] Nucleated red blood cell per centageOrdered By: Luis Carlos Gallardo on 04-25-2024 Nucleated RBC/100 WBC (Bld) [Ratio] 0 % 0-5 [facility] Platelet countOrdered By: Nuno Gallardo on 04-25-2024 Platelets (Bld) [#/Vol] 178 10*3/uL 150-450 [facility] Potassium measurementOrdered By: Luis Carlos Gallardo on 04-25-2024 Potassium [Moles/Vol] 4.0 mmol/L 3.5-5.1 [facility] RBC Auto (Bld) [#/Vol]Ordere d By: Luis Carlos Gallardo on 04-25-2024 RBC (Bld) [#/Vol] 3.41 10*6/uL Low 4.6-6.2 [facility] Serum anion gap measurementO rdered By: Luis Carlos Gallardo on 04-25-2024 Anion gap [Moles/Vol] 4 mmol/L Low 5-15 [facility] Serum or plasma calcium nicole urement (mass/volume)Ordered By: Luis Carlos Gallardo 04-25-2024 Calcium [Mass/Vol] 8.7 mg/dL 8.5-10.1 [facility] Serum or plasma creatinine m easurement (mass/volume)Ordered By: Luis Carlos Gallardo 04-25-2024 Creatinine [Mass/Vol] 0.80 mg/dL 0.70-1.30 [facility] Comment on above: The validity of the calculated GFR & GFRAA in patients over 70 years has not been determined. Clinical correlation is essential. Serum or plasma urea nitroge n measurement (mass/volume)Ordered By: Luis Carlos Gallardo on 04-25-2024 Urea nitrogen [Mass/Vol] 24 mg/dL High 7-18 [facility] Sodium levelOrdered By: Luis Carlos Gallardo 04-25-2024 Sodium [Moles/Vol] 139 mmol/L 136-145 [facility] White blood cell (WBC) count Ordered By: Luis Carlos Gallardo 04-25-2024 WBC (Bld) [#/Vol] 6.1 10*3/uL 4.4-11.0 [facility] HH, Hemoglobin AND Hematocri ton 04-21-2024 Hematocrit (Bld) [Volume fraction] 32.3 % Low 40-54 [facility] Comment on above: Performed By: #### L 100.0600 ####[facility] [address] [place], [address] Hemoglobin (Bld) [Mass/Vol] 10.5 g/dL Low 13.0-16.5 [facility] Comment on above: Performed By: #### L 100.0600 ####[facility] [address] [place], [address] Basic Metabolic Profile (BMP )on 04-20-2024 BUN/CRE 18.0 RATIO Normal 10-20 [facility] Comment on above: Performed By: #### L 500.2500 ####[facility] [address] [place], [address] CA,Total 9.2 mg/dL Normal 8.5-10.1 [facility] Comment on above: Performed By: #### L 500.2500 ####[facility] [address] [place], [address] Chloride [Moles/Vol] 112 mmol/L High 98-107 [facility] Comment on above: Performed By: #### L 500.2500 ####[facility] [address] [place], [address] CO2 [Moles/Vol] 24.0 mmol/L Normal 21.0-32.0 [facility] Comment on above: Performed By: #### L 500.2500 ####[facility] [address] [place], [address] Creatinine [Mass/Vol] 1.00 mg/dL Normal 0.70-1.30 [facility] Comment on above: Result Comment: The validity of the calculated GFR GFRAA in patients over70 years has not been determined. Clinical correlation isessential. Performed By: #### L 500.2500 ####[facility] [address] [place], [address] ECRCL 76.03 ml/min Normal [facility] Comment on above: Performed By: #### L 500.2500 ####[facility] [address] [place], [address] EST GFR - AA 93 mL/min Normal >60 [facility] Comment on above: Result Comment: Afri can Guamanian GFR Calc Performed By: #### L 500.2500 ####[facility] [address] [place], [address] GAP 6 Normal 5-15 [facility] Comment on above: Performed By: #### L 500.2500 ####[facility] [address] [place], [address] GFR/1.73 sq M.predicted among non-blacks MDRD (S/P/Bld) [Vol rate/Area] 77 mL/min/{1.73_m2} Normal >60 [facility] Comment on above: Result Comment: Non- GFR Calc Performed By: #### L 500.2500 ####[facility] [address] [place], [address] Glucose [Mass/Vol] 80 mg/dL Normal 74-106 [facility] Comment on above: Performed By: #### L 500.2500 ####[facility] [address] [place], [address] Potassium [Moles/Vol] 3.7 mmol/L Normal 3.5-5.1 [facility] Comment on above: Performed By: #### L 500.2500 ####[facility] [address] [place], [address] Sodium [Moles/Vol] 142 mmol/L Normal 136-145 [facility] Comment on above: Performed By: #### L 500.2500 ####[facility] [address] [place], [address] Urea nitrogen [Mass/Vol] 18 mg/dL Normal 7-18 [facility] Comment on above: Performed By: #### L 500.2500 ####[facility] [address] [place], [address] Basic Metabolic Profile (BMP )on 04-18-2024 BUN/CRE 16.7 RATIO Normal 10-20 [facility] Comment on above: Performed By: #### L 500.2500, L100.0100 ####[facility] [address] [place], [address] CA,Total 8.7 mg/dL Normal 8.5-10.1 [facility] Comment on above: Performed By: #### L 500.2500, L100.0100 ####[facility] [address] [place], [address] Chloride [Moles/Vol] 110 mmol/L High 98-107 [facility] Comment on above: Performed By: #### L 500.2500, L100.0100 ####[facility] [address] [place], [address] CO2 [Moles/Vol] 24.0 mmol/L Normal 21.0-32.0 [facility] Comment on above: Performed By: #### L 500.2500, L100.0100 ####[facility] [address] [place], [address] Creatinine [Mass/Vol] 1.02 mg/dL Normal 0.70-1.30 [facility] Comment on above: Result Comment: The validity of the calculated GFR GFRAA in patients over70 years has not been determined. Clinical correlation isessential. Performed By: #### L 500.2500, L100.0100 ####[facility] [address] [place], [address] ECRCL 74.54 ml/min Normal [facility] Comment on above: Performed By: #### L 500.2500, L100.0100 ####[facility] [address] [place], [address] EST GFR - AA 91 mL/min Normal >60 [facility] Comment on above: Result Comment: Afri can Guamanian GFR Calc Performed By: #### L 500.2500, L100.0100 ####[facility] [address] [place], [address] GAP 7 Normal 5-15 [facility] Comment on above: Performed By: #### L 500.2500, L100.0100 ####[facility] [address] [place], [address] GFR/1.73 sq M.predicted among non-blacks MDRD (S/P/Bld) [Vol rate/Area] 75 mL/min/{1.73_m2} Normal >60 [facility] Comment on above: Result Comment: Non- GFR Calc Performed By: #### L 500.2500, L100.0100 ####[facility] [address] [place], [address] Glucose [Mass/Vol] 85 mg/dL Normal 74-106 [facility] Comment on above: Performed By: #### L 500.2500, L100.0100 ####[facility] [address] [place], [address] Potassium [Moles/Vol] 3.4 mmol/L Low 3.5-5.1 [facility] Comment on above: Performed By: #### L 500.2500, L100.0100 ####[facility] [address] [place], [address] Sodium [Moles/Vol] 142 mmol/L Normal 136-145 [facility] Comment on above: Performed By: #### L 500.2500, L100.0100 ####[facility] [address] [place], [address] Urea nitrogen [Mass/Vol] 17 mg/dL Normal 7-18 [facility] Comment on above: Performed By: #### L 500.2500, L100.0100 ####[facility] [address] [place], [address] CBC W/Diff, Automatedon 02-0 4-2024 Absolute Lymph 0.87 X10 3/uL Normal 0.83-4.51 [facility] Comment on above: Performed By: #### L 500.2500, L100.0100 ####[facility] [address] [place], [address] Absolute Neut 3.4 X10 3/uL Normal 2.0-7.7 [facility] Comment on above: Performed By: #### L 500.2500, L100.0100 ####[facility] [address] [place], [address] Basophils/100 WBC (Bld) 0.2 % Normal 0-1 [facility] Comment on above: Performed By: #### L 500.2500, L100.0100 ####[facility] [address] [place], [address] Eosinophils/100 WBC (Bld) 3.7 % Normal 0-5 [facility] Comment on above: Performed By: #### L 500.2500, L100.0100 ####[facility] [address] [place], [address] Erythrocyte distribution width (RBC) [Ratio] 15.0 % High 11.6-14.6 [facility] Comment on above: Performed By: #### L 500.2500, L100.0100 ####[facility] [address] [place], [address] Hematocrit (Bld) [Volume fraction] 32.1 % Low 40-54 [facility] Comment on above: Performed By: #### L 500.2500, L100.0100 ####[facility] [address] [place], [address] Hemoglobin (Bld) [Mass/Vol] 10.4 g/dL Low 13.0-16.5 [facility] Comment on above: Performed By: #### L 500.2500, L100.0100 ####[facility] [address] [place], [address] IG% 0.400 Normal 0.0-0.9 [facility] Comment on above: Result Comment: IG% - Immature Granulocytes (promyelocytes, myelocytes andmetamyelocytes) > 1% indicates that a LEFT SHIFT is Present. Performed By: #### L 500.2500, L100.0100 ####[facility] [address] [place], [address] Lymphocytes/100 WBC (Bld) 17.9 % Low 19-41 [facility] Comment on above: Performed By: #### L 500.2500, L100.0100 ####[facility] [address] [place], [address] MCH (RBC) [Entitic mass] 28.0 pg Normal 27.0-32.0 [facility] Comment on above: Performed By: #### L 500.2500, L100.0100 ####[facility] [address] [place], [address] MCHC (RBC) [Mass/Vol] 32.4 g/dL Normal 32-36 [facility] Comment on above: Performed By: #### L 500.2500, L100.0100 ####[facility] [address] [place], [address] MCV (RBC) [Entitic vol] 86.5 fL Normal 80-94 [facility] Comment on above: Performed By: #### L 500.2500, L100.0100 ####[facility] [address] [place], [address] Monocytes/100 WBC (Bld) 8.2 % Normal 0-10 [facility] Comment on above: Performed By: #### L 500.2500, L100.0100 ####[facility] [address] [place], [address] Neutrophils/100 WBC (Bld) 69.6 % Normal 47-70 [facility] Comment on above: Performed By: #### L 500.2500, L100.0100 ####[facility] [address] [place], [address] Nucleated RBC (Bld) [#/Vol] 0 10*3/uL Normal 0-5 [facility] Comment on above: Performed By: #### L 500.2500, L100.0100 ####[facility] [address] [place], [address] Platelet mean volume (Bld) [Entitic vol] 10.3 fL Normal 6.2-12.0 [facility] Comment on above: Performed By: #### L 500.2500, L100.0100 ####[facility] [address] [place], [address] Platelets (Bld) [#/Vol] 192 10*3/uL Normal 150-450 [facility] Comment on above: Performed By: #### L 500.2500, L100.0100 ####[facility] [address] [place], [address] RBC (Bld) [#/Vol] 3.71 10*6/uL Low 4.6-6.2 [facility] Comment on above: Performed By: #### L 500.2500, L100.0100 ####[facility] [address] [place], [address] RDW SD 47.0 fl High 35.1-43.9 [facility] Comment on above: Performed By: #### L 500.2500, L100.0100 ####[facility] [address] [place], [address] WBC (Bld) [#/Vol] 4.9 10*3/uL Normal 4.4-11.0 [facility] Comment on above: Performed By: #### L 500.2500, L100.0100 ####[facility] [address] [place], [address] Bedside Glucoseon 04-14-2024 FINGERSTICK GLU 91 mg/dL Normal 74-106 [facility] Comment on above: Result Comment: NETO XIE OF PATIENT CARE PER NURSING PROTOCOL Performed By: #### L 501.080 ####[facility] [address] [place], [address] [facility] at [facility] deOrdered By: Luis Carlos Gallardo on 04-14-2024 Glucose [Mass/Vol] 91 mg/dL 74-106 [facility] Comment on above: MANAGEMENT OF PATIEN T CARE PER NURSING PROTOCOL Basic Metabolic Profile (BMP )on 04-12-2024 BUN/CRE 15.7 RATIO Normal 10-20 [facility] Comment on above: Performed By: #### L 100.0100, L500.2500 ####[facility] [address] [place], [address] CA,Total 8.5 mg/dL Normal 8.5-10.1 [facility] Comment on above: Performed By: #### L 100.0100, L500.2500 ####[facility] [address] [place], [address] Chloride [Moles/Vol] 110 mmol/L High 98-107 [facility] Comment on above: Performed By: #### L 100.0100, L500.2500 ####[facility] [address] [place], [address] CO2 [Moles/Vol] 21.0 mmol/L Normal 21.0-32.0 [facility] Comment on above: Performed By: #### L 100.0100, L500.2500 ####[facility] [address] [place], [address] Creatinine [Mass/Vol] 0.96 mg/dL Normal 0.70-1.30 [facility] Comment on above: Result Comment: The validity of the calculated GFR GFRAA in patients over70 years has not been determined. Clinical correlation isessential. Performed By: #### L 100.0100, L500.2500 ####[facility] [address] [place], [address] ECRCL 78.95 ml/min Normal [facility] Comment on above: Performed By: #### L 100.0100, L500.2500 ####[facility] [address] [place], [address] EST GFR - AA 98 mL/min Normal >60 [facility] Comment on above: Result Comment: Afri can Guamanian GFR Calc Performed By: #### L 100.0100, L500.2500 ####[facility] [address] [place], [address] GAP 9 Normal 5-15 [facility] Comment on above: Performed By: #### L 100.0100, L500.2500 ####[facility] [address] [place], [address] GFR/1.73 sq M.predicted among non-blacks MDRD (S/P/Bld) [Vol rate/Area] 81 mL/min/{1.73_m2} Normal >60 [facility] Comment on above: Result Comment: Non- GFR Calc Performed By: #### L 100.0100, L500.2500 ####[facility] [address] [place], [address] Glucose [Mass/Vol] 90 mg/dL Normal 74-106 [facility] Comment on above: Performed By: #### L 100.0100, L500.2500 ####[facility] [address] [place], [address] Potassium [Moles/Vol] 3.6 mmol/L Normal 3.5-5.1 [facility] Comment on above: Performed By: #### L 100.0100, L500.2500 ####[facility] [address] [place], [address] Sodium [Moles/Vol] 139 mmol/L Normal 136-145 [facility] Comment on above: Performed By: #### L 100.0100, L500.2500 ####[facility] [address] [place], [address] Urea nitrogen [Mass/Vol] 15 mg/dL Normal 7-18 [facility] Comment on above: Performed By: #### L 100.0100, L500.2500 ####[facility] [address] [place], [address] CBC W/Diff, Automatedon 01-2 Absolute Lymph 0.67 X10 3/uL Low 0.83-4.51 [facility] Comment on above: Performed By: #### L 100.0100, L500.2500 ####[facility] [address] [place], [address] Absolute Neut 2.0 X10 3/uL Normal 2.0-7.7 [facility] Comment on above: Performed By: #### L 100.0100, L500.2500 ####[facility] [address] [place], [address] Basophils/100 WBC (Bld) 0.3 % Normal 0-1 [facility] Comment on above: Performed By: #### L 100.0100, L500.2500 ####[facility] [address] [place], [address] Eosinophils/100 WBC (Bld) 4.5 % Normal 0-5 [facility] Comment on above: Performed By: #### L 100.0100, L500.2500 ####[facility] [address] [place], [address] Erythrocyte distribution width (RBC) [Ratio] 15.5 % High 11.6-14.6 [facility] Comment on above: Performed By: #### L 100.0100, L500.2500 ####[facility] [address] [place], [address] Hematocrit (Bld) [Volume fraction] 29.8 % Low 40-54 [facility] Comment on above: Performed By: #### L 100.0100, L500.2500 ####[facility] [address] [place], [address] Hemoglobin (Bld) [Mass/Vol] 10.0 g/dL Low 13.0-16.5 [facility] Comment on above: Performed By: #### L 100.0100, L500.2500 ####[facility] [address] [place], [address] IG% 0.600 Normal 0.0-0.9 [facility] Comment on above: Result Comment: IG% - Immature Granulocytes (promyelocytes, myelocytes andmetamyelocytes) > 1% indicates that a LEFT SHIFT is Present. Performed By: #### L 100.0100, L500.2500 ####[facility] [address] [place], [address] Lymphocytes/100 WBC (Bld) 21.3 % Normal 19-41 [facility] Comment on above: Performed By: #### L 100.0100, L500.2500 ####[facility] [address] [place], [address] MCH (RBC) [Entitic mass] 28.4 pg Normal 27.0-32.0 [facility] Comment on above: Performed By: #### L 100.0100, L500.2500 ####[facility] [address] [place], [address] MCHC (RBC) [Mass/Vol] 33.6 g/dL Normal 32-36 [facility] Comment on above: Performed By: #### L 100.0100, L500.2500 ####[facility] [address] [place], [address] MCV (RBC) [Entitic vol] 84.7 fL Normal 80-94 [facility] Comment on above: Performed By: #### L 100.0100, L500.2500 ####[facility] [address] [place], [address] Monocytes/100 WBC (Bld) 10.2 % High 0-10 [facility] Comment on above: Performed By: #### L 100.0100, L500.2500 ####[facility] [address] [place], [address] Neutrophils/100 WBC (Bld) 63.1 % Normal 47-70 [facility] Comment on above: Performed By: #### L 100.0100, L500.2500 ####[facility] [address] [place], [address] Nucleated RBC (Bld) [#/Vol] 0 10*3/uL Normal 0-5 [facility] Comment on above: Performed By: #### L 100.0100, L500.2500 ####[facility] [address] [place], [address] Platelet mean volume (Bld) [Entitic vol] 10.3 fL Normal 6.2-12.0 [facility] Comment on above: Performed By: #### L 100.0100, L500.2500 ####[facility] [address] [place], [address] Platelets (Bld) [#/Vol] 125 10*3/uL Low 150-450 [facility] Comment on above: Performed By: #### L 100.0100, L500.2500 ####[facility] [address] [place] [place], [address] RBC (Bld) [#/Vol] 3.52 10*6/uL Low 4.6-6.2 [facility] Comment on above: Performed By: #### L 100.0100, L500.2500 ####[facility] [address] [place], [address] RDW SD 47.8 fl High 35.1-43.9 [facility] Comment on above: Performed By: #### L 100.0100, L500.2500 ####[facility] [address] [place], [address] WBC (Bld) [#/Vol] 3.1 10*3/uL Low 4.4-11.0 [facility] Comment on above: Performed By: #### L 100.0100, L500.2500 ####[facility] [address] [place], [address] Basic Metabolic Profile (BMP )on 04-11-2024 BUN/CRE 15.1 RATIO Normal 10-20 [facility] Comment on above: Performed By: #### L 500.2500, L100.0100 ####[facility] [address] [place], [address] CA,Total 8.7 mg/dL Normal 8.5-10.1 [facility] Comment on above: Performed By: #### L 500.2500, L100.0100 ####[facility] [address] [place], [address] Chloride [Moles/Vol] 111 mmol/L High 98-107 [facility] Comment on above: Performed By: #### L 500.2500, L100.0100 ####[facility] [address] [place], [address] CO2 [Moles/Vol] 20.0 mmol/L Low 21.0-32.0 [facility] Comment on above: Performed By: #### L 500.2500, L100.0100 ####[facility] [address] [place], [address] Creatinine [Mass/Vol] 0.93 mg/dL Normal 0.70-1.30 [facility] Comment on above: Result Comment: The validity of the calculated GFR GFRAA in patients over70 years has not been determined. Clinical correlation isessential. Performed By: #### L 500.2500, L100.0100 ####[facility] [address] [place], [address] ECRCL 81.50 ml/min Normal [facility] Comment on above: Performed By: #### L 500.2500, L100.0100 ####[facility] [address] [place], [address] EST GFR - AA 102 mL/min Normal >60 [facility] Comment on above: Result Comment: Afri can Guamanian GFR Calc Performed By: #### L 500.2500, L100.0100 ####[facility] [address] [place], [address] GAP 9 Normal 5-15 [facility] Comment on above: Performed By: #### L 500.2500, L100.0100 ####[facility] [address] [place], [address] GFR/1.73 sq M.predicted among non-blacks MDRD (S/P/Bld) [Vol rate/Area] 84 mL/min/{1.73_m2} Normal >60 [facility] Comment on above: Result Comment: Non- GFR Calc Performed By: #### L 500.2500, L100.0100 ####[facility] [address] [place], [address] Glucose [Mass/Vol] 88 mg/dL Normal 74-106 [facility] Comment on above: Performed By: #### L 500.2500, L100.0100 ####[facility] [address] [place], [address] Potassium [Moles/Vol] 3.3 mmol/L Low 3.5-5.1 [facility] Comment on above: Performed By: #### L 500.2500, L100.0100 ####[facility] [address] [place], [address] Sodium [Moles/Vol] 139 mmol/L Normal 136-145 [facility] Comment on above: Performed By: #### L 500.2500, L100.0100 ####[facility] [address] [place], [address] Urea nitrogen [Mass/Vol] 14 mg/dL Normal 7-18 [facility] Comment on above: Performed By: #### L 500.2500, L100.0100 ####[facility] [address] [place], [address] CBC W/Diff, Automatedon 01-2 Absolute Lymph 0.81 X10 3/uL Low 0.83-4.51 [facility] Comment on above: Performed By: #### L 500.2500, L100.0100 ####[facility] [address] [place], [address] Absolute Neut 1.6 X10 3/uL Low 2.0-7.7 [facility] Comment on above: Performed By: #### L 500.2500, L100.0100 ####[facility] [address] [place], [address] Basophils/100 WBC (Bld) 0.3 % Normal 0-1 [facility] Comment on above: Performed By: #### L 500.2500, L100.0100 ####[facility] [address] [place], [address] Eosinophils/100 WBC (Bld) 3.8 % Normal 0-5 [facility] Comment on above: Performed By: #### L 500.2500, L100.0100 ####[facility] [address] [place], [address] Erythrocyte distribution width (RBC) [Ratio] 15.6 % High 11.6-14.6 [facility] Comment on above: Performed By: #### L 500.2500, L100.0100 ####[facility] [address] [place], [address] Hematocrit (Bld) [Volume fraction] 30.8 % Low 40-54 [facility] Comment on above: Performed By: #### L 500.2500, L100.0100 ####[facility] [address] [place], [address] Hemoglobin (Bld) [Mass/Vol] 9.9 g/dL Low 13.0-16.5 [facility] Comment on above: Performed By: #### L 500.2500, L100.0100 ####[facility] [address] [place], [address] IG% 0.300 Normal 0.0-0.9 [facility] Comment on above: Result Comment: IG% - Immature Granulocytes (promyelocytes, myelocytes andmetamyelocytes) > 1% indicates that a LEFT SHIFT is Present. Performed By: #### L 500.2500, L100.0100 ####[facility] [address] [place], [address] Lymphocytes/100 WBC (Bld) 27.6 % Normal 19-41 [facility] Comment on above: Performed By: #### L 500.2500, L100.0100 ####[facility] [address] [place], [address] MCH (RBC) [Entitic mass] 27.9 pg Normal 27.0-32.0 [facility] Comment on above: Performed By: #### L 500.2500, L100.0100 ####[facility] [address] [place], [address] MCHC (RBC) [Mass/Vol] 32.1 g/dL Normal 32-36 [facility] Comment on above: Performed By: #### L 500.2500, L100.0100 ####[facility] [address] [place], [address] MCV (RBC) [Entitic vol] 86.8 fL Normal 80-94 [facility] Comment on above: Performed By: #### L 500.2500, L100.0100 ####[facility] [address] [place], [address] Monocytes/100 WBC (Bld) 13.7 % High 0-10 [facility] Comment on above: Performed By: #### L 500.2500, L100.0100 ####[facility] [address] [place], [address] Neutrophils/100 WBC (Bld) 54.3 % Normal 47-70 [facility] Comment on above: Performed By: #### L 500.2500, L100.0100 ####[facility] [address] [place], [address] Nucleated RBC (Bld) [#/Vol] 0 10*3/uL Normal 0-5 [facility] Comment on above: Performed By: #### L 500.2500, L100.0100 ####[facility] [address] [place], [address] Platelet mean volume (Bld) [Entitic vol] 10.3 fL Normal 6.2-12.0 [facility] Comment on above: Performed By: #### L 500.2500, L100.0100 ####[facility] [address] [place], [address] Platelets (Bld) [#/Vol] 124 10*3/uL Low 150-450 [facility] Comment on above: Performed By: #### L 500.2500, L100.0100 ####[facility] [address] [place], [address] RBC (Bld) [#/Vol] 3.55 10*6/uL Low 4.6-6.2 [facility] Comment on above: Performed By: #### L 500.2500, L100.0100 ####[facility] [address] [place], [address] RDW SD 49.6 fl High 35.1-43.9 [facility] Comment on above: Performed By: #### L 500.2500, L100.0100 ####[facility] [address] [place], [address] WBC (Bld) [#/Vol] 2.9 10*3/uL Low 4.4-11.0 [facility] Comment on above: Performed By: #### L 500.2500, L100.0100 ####[facility] [address] [place], [address] Culture, Blood (WB)on 2024 CUB No growth in 5 days. Normal [facility] Comment on above: Performed By: #### M 200.1000 ####[facility] [address] [place], [address] Consultation - Urologyon Consultation - Urology Normal [facility] Urine Cultureon 04-10-2024 URC Normal [facility] Comment on above: Performed By: #### M 100.2200 ####[facility] [address] [place], [address] Abdomen/Pelvis WITH Contrast on 04-07-2024 Abdomen/Pelvis WITH Contrast Normal [facility] RESPIRATORY PANEL MOLECULARo n 04-07-2024 RP PANEL Normal [facility] Comment on above: Performed By: #### M 100.638 ####[facility] [address] [place], [address] COVID 19 AG RAPID (RN COLLEC T)on 04-06-2024 SARS-CoV-2 (COVID-19) RNA ALEXYS+probe Ql (Unsp spec) Normal [facility] Comment on above: Performed By: #### M 100.505 ####[facility] [address] [place], [address] COVID-19 virus antigen assay Ordered By: Luis Carlos Gallardo on 04-06-2024 SARS-CoV-2 (COVID-19) Ag IA.rapid Ql (Resp) [facility] Chest PA and Lateralon 04-06 Chest PA and Lateral Normal [facility] Respiratory pathogens detect ion panel by molecular detection methodOrdered By: Luis Carlos Gallardo on 04-06-2024 Respiratory pathogens DNA and RNA panel ALEXYS+probe (Resp) [facility] Urine Cultureon 04-06-2024 URC Normal [facility] Comment on above: Performed By: #### M 100.2200, L400.0001 ####[facility] [address] [place], [address] Basic Metabolic Profile (BMP )on 04-05-2024 BUN/CRE 21.1 RATIO High 10-20 [facility] Comment on above: Performed By: #### L 100.0100, L500.2500 ####[facility] [address] [place], [address] CA,Total 9.3 mg/dL Normal 8.5-10.1 [facility] Comment on above: Performed By: #### L 100.0100, L500.2500 ####[facility] [address] [place], [address] Chloride [Moles/Vol] 107 mmol/L Normal 98-107 [facility] Comment on above: Performed By: #### L 100.0100, L500.2500 ####[facility] [address] [place], [address] CO2 [Moles/Vol] 25.0 mmol/L Normal 21.0-32.0 [facility] Comment on above: Performed By: #### L 100.0100, L500.2500 ####[facility] [address] [place], [address] Creatinine [Mass/Vol] 1.14 mg/dL Normal 0.70-1.30 [facility] Comment on above: Result Comment: The validity of the calculated GFR GFRAA in patients over70 years has not been determined. Clinical correlation isessential. Performed By: #### L 100.0100, L500.2500 ####[facility] [address] [place], [address] ECRCL 66.48 ml/min Normal [facility] Comment on above: Performed By: #### L 100.0100, L500.2500 ####[facility] [address] [place], [address] EST GFR - AA 80 mL/min Normal >60 [facility] Comment on above: Result Comment: Afri can Guamanian GFR Calc Performed By: #### L 100.0100, L500.2500 ####[facility] [address] [place], [address] GAP 8 Normal 5-15 [facility] Comment on above: Performed By: #### L 100.0100, L500.2500 ####[facility] [address] [place], [address] GFR/1.73 sq M.predicted among non-blacks MDRD (S/P/Bld) [Vol rate/Area] 66 mL/min/{1.73_m2} Normal >60 [facility] Comment on above: Result Comment: Non- GFR Calc Performed By: #### L 100.0100, L500.2500 ####[facility] [address] [place], [address] Glucose [Mass/Vol] 109 mg/dL High 74-106 [facility] Comment on above: Result Comment: Fast ing Glucose result from 100 to 125 mg/dLsuggests IMPAIRED HOMEOSTASIS per A.D.A. criteria. Performed By: #### L 100.0100, L500.2500 ####[facility] [address] [place], [address] Potassium [Moles/Vol] 4.3 mmol/L Normal 3.5-5.1 [facility] Comment on above: Performed By: #### L 100.0100, L500.2500 ####[facility] [address] [place], [address] Sodium [Moles/Vol] 140 mmol/L Normal 136-145 [facility] Comment on above: Performed By: #### L 100.0100, L500.2500 ####[facility] [address] [place], [address] Urea nitrogen [Mass/Vol] 24 mg/dL High 7-18 [facility] Comment on above: Performed By: #### L 100.0100, L500.2500 ####[facility] [address] [place], [address] Bedside Glucoseon 04-05-2024 FINGERSTICK GLU 135 mg/dL High 74-106 [facility] Comment on above: Result Comment: NETO XIE OF PATIENT CARE PER NURSING PROTOCOL Performed By: #### L 501.080 ####[facility] [address] [place], [address] Bilirubin Test strip Ql (U)O rdered By: Luis Carlos Gallardo on 04-05-2024 Bilirubin Ql (U) Negative Negative [facility] Blood cultureOrdered By: Luis Carlos Gallardo on 04-05-2024 Bacteria identified Cx Nom (Bld) No growth in 5 days. [facility] CBC W/Diff, Automatedon 03-16 Absolute Lymph 0.44 X10 3/uL Low 0.83-4.51 [facility] Comment on above: Performed By: #### L 100.0100, L500.2500 ####[facility] [address] [place], [address] Absolute Neut 7.2 X10 3/uL Normal 2.0-7.7 [facility] Comment on above: Performed By: #### L 100.0100, L500.2500 ####[facility] [address] [place], [address] Basophils/100 WBC (Bld) 0.2 % Normal 0-1 [facility] Comment on above: Performed By: #### L 100.0100, L500.2500 ####[facility] [address] [place], [address] Eosinophils/100 WBC (Bld) 1.8 % Normal 0-5 [facility] Comment on above: Performed By: #### L 100.0100, L500.2500 ####[facility] [address] [place], [address] Erythrocyte distribution width (RBC) [Ratio] 15.6 % High 11.6-14.6 [facility] Comment on above: Performed By: #### L 100.0100, L500.2500 ####[facility] [address] [place], [address] Hematocrit (Bld) [Volume fraction] 35.4 % Low 40-54 [facility] Comment on above: Performed By: #### L 100.0100, L500.2500 ####[facility] [address] [place], [address] Hemoglobin (Bld) [Mass/Vol] 11.6 g/dL Low 13.0-16.5 [facility] Comment on above: Performed By: #### L 100.0100, L500.2500 ####[facility] [address] [place], [address] IG% 0.200 Normal 0.0-0.9 [facility] Comment on above: Result Comment: IG% - Immature Granulocytes (promyelocytes, myelocytes andmetamyelocytes) > 1% indicates that a LEFT SHIFT is Present. Performed By: #### L 100.0100, L500.2500 ####[facility] [address] [place], [address] Lymphocytes/100 WBC (Bld) 5.2 % Low 19-41 [facility] Comment on above: Performed By: #### L 100.0100, L500.2500 ####[facility] [address] [place], [address] MCH (RBC) [Entitic mass] 28.6 pg Normal 27.0-32.0 [facility] Comment on above: Performed By: #### L 100.0100, L500.2500 ####[facility] [address] [place], [address] MCHC (RBC) [Mass/Vol] 32.8 g/dL Normal 32-36 [facility] Comment on above: Performed By: #### L 100.0100, L500.2500 ####[facility] [address] [place], [address] MCV (RBC) [Entitic vol] 87.2 fL Normal 80-94 [facility] Comment on above: Performed By: #### L 100.0100, L500.2500 ####[facility] [address] [place], [address] Monocytes/100 WBC (Bld) 7.8 % Normal 0-10 [facility] Comment on above: Performed By: #### L 100.0100, L500.2500 ####[facility] [address] [place], [address] Neutrophils/100 WBC (Bld) 84.8 % High 47-70 [facility] Comment on above: Performed By: #### L 100.0100, L500.2500 ####[facility] [address] [place], [address] Nucleated RBC (Bld) [#/Vol] 0 10*3/uL Normal 0-5 [facility] Comment on above: Performed By: #### L 100.0100, L500.2500 ####[facility] [address] [place], [address] Platelet mean volume (Bld) [Entitic vol] 10.0 fL Normal 6.2-12.0 [facility] Comment on above: Performed By: #### L 100.0100, L500.2500 ####[facility] [address] [place], [address] Platelets (Bld) [#/Vol] 183 10*3/uL Normal 150-450 [facility] Comment on above: Performed By: #### L 100.0100, L500.2500 ####[facility] [address] [place], [address] RBC (Bld) [#/Vol] 4.06 10*6/uL Low 4.6-6.2 [facility] Comment on above: Performed By: #### L 100.0100, L500.2500 ####[facility] [address] [place], [address] RDW SD 48.9 fl High 35.1-43.9 [facility] Comment on above: Performed By: #### L 100.0100, L500.2500 ####[facility] [address] [place], [address] WBC (Bld) [#/Vol] 8.5 10*3/uL Normal 4.4-11.0 [facility] Comment on above: Performed By: #### L 100.0100, L500.2500 ####[facility] [address] [place], [address] Ketones Test strip Ql (U)Ord ered By: Luis Carlos Gallardo on 04-05-2024 Ketones Ql (U) Negative Negative [facility] Protein Test strip Ql (U)Ord ered By: Luis Carlos Gallardo on 04-05-2024 Protein Ql (U) 30 mg/dl High Negative [facility] Urinalysis, Routine (Dipstic k)on 04-05-2024 BILIRUBIN URINE Negative Normal Negative [facility] Comment on above: Order Comment: SONALI CTOR TO SPECIFY Performed By: #### L 400.2010 ####[facility] [address] [place], [address] GLUCOSE, UR Normal Normal Normal [facility] Comment on above: Order Comment: SONALI CTOR TO SPECIFY Performed By: #### L 400.2010 ####[facility] [address] [place], [address] KETONE UR Negative Normal Negative [facility] Comment on above: Order Comment: SONALI CTOR TO SPECIFY Performed By: #### L 400.2010 ####[facility] [address] [place], [address] LEUK ESTERASE 500 /ul Abnormal Negative [facility] Comment on above: Order Comment: SONALI CTOR TO SPECIFY Performed By: #### L 400.2010 ####[facility] [address] [place], [address] OCCULT BLOOD-UR 150 /ul Abnormal Negative [facility] Comment on above: Order Comment: SONALI CTOR TO SPECIFY Performed By: #### L 400.2010 ####[facility] [address] [place], [address] pH UR 7.0 Normal 5.0 - 8.0 [facility] Comment on above: Order Comment: SONALI CTOR TO SPECIFY Performed By: #### L 400.2010 ####[facility] [address] [place], [address] PROT DIPSTX 30 mg/dl Abnormal Negative [facility] Comment on above: Order Comment: SONALI CTOR TO SPECIFY Performed By: #### L 400.2010 ####[facility] [address] [place], [address] SP.GR. DIPSTX 1.010 Normal 1.002-1.03 0 [facility] Comment on above: Order Comment: SONALI CTOR TO SPECIFY Performed By: #### L 400.2010 ####[facility] [address] [place], [address] UROBILI Normal Normal Normal [facility] Comment on above: Order Comment: SONALI CTOR TO SPECIFY Performed By: #### L 400.2010 ####[facility] [address] [place], [address] Urine clarityOrdered By: Luis Carlos Gallardo on 04-05-2024 Clarity (U) Cloudy Normal Clear [facility] Comment on above: Order Comment: SONALI CTOR TO SPECIFY Performed By: #### L 400.2010 ####[facility] [address] [place], [address] Urine color determinationOrd ered By: Luis Carlos Gallardo on 04-05-2024 Color (U) Yellow Normal Yellow [facility] Comment on above: Order Comment: SONALI CTOR TO SPECIFY Performed By: #### L 400.2010 ####[facility] [address] [place], [address] Urine cultureOrdered By: Luis Carlos Gallardo on 04-05-2024 Bacteria identified Cx Nom (U) Pseudomonas fluorescens Abnormal [facility] Urine glucose detectionOrder ed By: Luis Carlos Gallardo on 04-05-2024 Glucose Ql (U) Normal mg/dl Normal [facility] Urine leukocyte esterase det ection by dipstickOrdered By: Luis Carlos Gallardo on 04-05-2024 Leukocyte esterase Test strip Ql (U) 500 /ul High Negative [facility] Urine nitrite test by dipsti ckOrdered By: Luis Carlos Gallardo on 04-05-2024 Nitrite Ql (U) Positive Abnormal Negative [facility] Comment on above: Order Comment: COLLE CTOR TO SPECIFY Performed By: #### L 400.2010 ####[facility] [address] [place], [address] Urine pHOrdered By: Luis Carlos Gallardo on 04-05-2024 pH (U) 7.0 [pH] 5.0 - 8.0 [facility] Urine specific gravity measu rementOrdered By: Luis Carlos Gallardo on 04-05-2024 Specific gravity (U) [Rel density] 1.010 1.002-1.03 0 [facility] Urine urobilinogen measureme ntOrdered By: Luis Carlos Gallardo on 04-05-2024 Urobilinogen Ql (U) Normal mg/dl Normal [facility] Basic Metabolic Profile (BMP )on 04-04-2024 BUN/CRE 20.5 RATIO High 10-20 [facility] Comment on above: Performed By: #### L 500.2500, L100.0100 ####[facility] [address] [place], [address] CA,Total 9.7 mg/dL Normal 8.5-10.1 [facility] Comment on above: Performed By: #### L 500.2500, L100.0100 ####[facility] [address] [place], [address] Chloride [Moles/Vol] 108 mmol/L High 98-107 [facility] Comment on above: Performed By: #### L 500.2500, L100.0100 ####[facility] [address] [place], [address] CO2 [Moles/Vol] 26.0 mmol/L Normal 21.0-32.0 [facility] Comment on above: Performed By: #### L 500.2500, L100.0100 ####[facility] [address] [place], [address] Creatinine [Mass/Vol] 0.98 mg/dL Normal 0.70-1.30 [facility] Comment on above: Result Comment: The validity of the calculated GFR GFRAA in patients over70 years has not been determined. Clinical correlation isessential. Performed By: #### L 500.2500, L100.0100 ####[facility] [address] [place], [address] ECRCL 77.82 ml/min Normal [facility] Comment on above: Performed By: #### L 500.2500, L100.0100 ####[facility] [address] [place], [address] EST GFR - AA 96 mL/min Normal >60 [facility] Comment on above: Result Comment: Afri can Guamanian GFR Calc Performed By: #### L 500.2500, L100.0100 ####[facility] [address] [place], [address] GAP 5 Normal 5-15 [facility] [facility] Comment on above: Performed By: #### L 500.2500, L100.0100 ####[facility] [address] [place], [address] GFR/1.73 sq M.predicted among non-blacks MDRD (S/P/Bld) [Vol rate/Area] 79 mL/min/{1.73_m2} Normal >60 [facility] Comment on above: Result Comment: Non- GFR Calc Performed By: #### L 500.2500, L100.0100 ####[facility] [address] [place], [address] Glucose [Mass/Vol] 93 mg/dL Normal 74-106 [facility] Comment on above: Performed By: #### L 500.2500, L100.0100 ####[facility] [address] [place], [address] Potassium [Moles/Vol] 3.7 mmol/L Normal 3.5-5.1 [facility] Comment on above: Performed By: #### L 500.2500, L100.0100 ####[facility] [address] [place], [address] Sodium [Moles/Vol] 139 mmol/L Normal 136-145 [facility] Comment on above: Performed By: #### L 500.2500, L100.0100 ####[facility] [address] [place], [address] Urea nitrogen [Mass/Vol] 20 mg/dL High 7-18 [facility] Comment on above: Performed By: #### L 500.2500, L100.0100 ####[facility] [address] [place], [address] BUN Normal 7-18 [facility] Comment on above: Result Comment: Canc elled via OM: Order cancelled - Patient discharged Performed By: #### L 100.0100, L500.2500 ####[facility] [address] [place], [address] BUN/CRE Normal 10-20 [facility] Comment on above: Result Comment: Canc elled via OM: Order cancelled - Patient discharged Performed By: #### L 100.0100, L500.2500 ####[facility] [address] [place], [address] CA,Total Normal 8.5-10.1 [facility] Comment on above: Result Comment: Canc elled via OM: Order cancelled - Patient discharged Performed By: #### L 100.0100, L500.2500 ####[facility] [address] [place], [address] CL Normal 98-107 [facility] Comment on above: Result Comment: Canc elled via OM: Order cancelled - Patient discharged Performed By: #### L 100.0100, L500.2500 ####[facility] [address] [place], [address] CO2 Normal 21.0-32.0 [facility] Comment on above: Result Comment: Canc elled via OM: Order cancelled - Patient discharged Performed By: #### L 100.0100, L500.2500 ####[facility] [address] [place], [address] CREAT,SERUM Normal 0.70-1.30 [facility] Comment on above: Result Comment: Canc elled via OM: Order cancelled - Patient discharged Performed By: #### L 100.0100, L500.2500 ####[facility] [address] [place], [address] EST GFR Normal >60 [facility] Comment on above: Result Comment: Canc elled via OM: Order cancelled - Patient discharged Performed By: #### L 100.0100, L500.2500 ####[facility] [address] [place], [address] EST GFR - AA Normal >60 [facility] Comment on above: Result Comment: Canc elled via OM: Order cancelled - Patient discharged Performed By: #### L 100.0100, L500.2500 ####[facility] [address] [place], [address] GAP Normal 5-15 [facility] Comment on above: Result Comment: Canc elled via OM: Order cancelled - Patient discharged Performed By: #### L 100.0100, L500.2500 ####[facility] [address] [place], [address] GLU Normal 74-106 [facility] Comment on above: Result Comment: Canc elled via OM: Order cancelled - Patient discharged Performed By: #### L 100.0100, L500.2500 ####[facility] [address] [place], [address] Potassium Normal 3.5-5.1 [facility] Comment on above: Result Comment: Canc elled via OM: Order cancelled - Patient discharged Performed By: #### L 100.0100, L500.2500 ####[facility] [address] [place], [address] Basic Metabolic Profile (BMP) Normal 136-145 [facility] Comment on above: Result Comment: Canc elled via OM: Order cancelled - Patient discharged Performed By: #### L 100.0100, L500.2500 ####[facility] [address] [place], [address] CBC W/Diff, Automatedon 01-2 Absolute Neut Normal 2.0-7.7 [facility] Comment on above: Result Comment: Canc elled via OM: Order cancelled - Patient discharged Performed By: #### L 100.0100, L500.2500 ####[facility] [address] [place], [address] HCT Normal 40-54 [facility] Comment on above: Result Comment: Canc elled via OM: Order cancelled - Patient discharged Performed By: #### L 100.0100, L500.2500 ####[facility] [address] [place], [address] HGB Normal 13.0-16.5 [facility] Comment on above: Result Comment: Canc elled via OM: Order cancelled - Patient discharged Performed By: #### L 100.0100, L500.2500 ####[facility] [address] [place], [address] MCH Normal 27.0-32.0 [facility] Comment on above: Result Comment: Canc elled via OM: Order cancelled - Patient discharged Performed By: #### L 100.0100, L500.2500 ####[facility] [address] [place], [address] MCHC Normal 32-36 [facility] Comment on above: Result Comment: Canc elled via OM: Order cancelled - Patient discharged Performed By: #### L 100.0100, L500.2500 ####[facility] [address] [place], [address] MCV Normal 80-94 [facility] Comment on above: Result Comment: Canc elled via OM: Order cancelled - Patient discharged Performed By: #### L 100.0100, L500.2500 ####[facility] [address] [place], [address] NEUT% Normal 47-70 [facility] Comment on above: Result Comment: Canc elled via OM: Order cancelled - Patient discharged Performed By: #### L 100.0100, L500.2500 ####[facility] [address] [place], [address] PLT Normal 150-450 [facility] Comment on above: Result Comment: Canc elled via OM: Order cancelled - Patient discharged Performed By: #### L 100.0100, L500.2500 ####[facility] [address] [place], [address] RBC Normal 4.6-6.2 [facility] Comment on above: Result Comment: Canc elled via OM: Order cancelled - Patient discharged Performed By: #### L 100.0100, L500.2500 ####[facility] [address] [place], [address] RDW CV Normal 11.6-14.6 [facility] Comment on above: Result Comment: Canc elled via OM: Order cancelled - Patient discharged Performed By: #### L 100.0100, L500.2500 ####[facility] [address] [place], [address] RDW SD Normal 35.1-43.9 [facility] Comment on above: Result Comment: Canc elled via OM: Order cancelled - Patient discharged Performed By: #### L 100.0100, L500.2500 ####[facility] [address] [place], [address] WBC Normal 4.4-11.0 [facility] Comment on above: Result Comment: Canc elled via OM: Order cancelled - Patient discharged Performed By: #### L 100.0100, L500.2500 ####[facility] [address] [place], [address] Absolute Lymph 1.05 X10 3/uL Normal 0.83-4.51 [facility] Comment on above: Performed By: #### L 500.2500, L100.0100 ####[facility] [address] [place], [address] Absolute Neut 4.3 X10 3/uL Normal 2.0-7.7 [facility] Comment on above: Performed By: #### L 500.2500, L100.0100 ####[facility] [address] [place], [address] Basophils/100 WBC (Bld) 0.5 % Normal 0-1 [facility] Comment on above: Performed By: #### L 500.2500, L100.0100 ####[facility] [address] [place], [address] Eosinophils/100 WBC (Bld) 3.1 % Normal 0-5 [facility] Comment on above: Performed By: #### L 500.2500, L100.0100 ####[facility] [address] [place], [address] Erythrocyte distribution width (RBC) [Ratio] 15.3 % High 11.6-14.6 [facility] Comment on above: Performed By: #### L 500.2500, L100.0100 ####[facility] [address] [place], [address] Hematocrit (Bld) [Volume fraction] 33.2 % Low 40-54 [facility] Comment on above: Performed By: #### L 500.2500, L100.0100 ####[facility] [address] [place], [address] Hemoglobin (Bld) [Mass/Vol] 10.9 g/dL Low 13.0-16.5 [facility] Comment on above: Performed By: #### L 500.2500, L100.0100 ####[facility] [address] [place], [address] IG% 0.300 Normal 0.0-0.9 [facility] Comment on above: Result Comment: IG% - Immature Granulocytes (promyelocytes, myelocytes andmetamyelocytes) > 1% indicates that a LEFT SHIFT is Present. Performed By: #### L 500.2500, L100.0100 ####[facility] [address] [place], [address] Lymphocytes/100 WBC (Bld) 17.4 % Low 19-41 [facility] Comment on above: Performed By: #### L 500.2500, L100.0100 ####[facility] [address] [place], [address] MCH (RBC) [Entitic mass] 29.1 pg Normal 27.0-32.0 [facility] Comment on above: Performed By: #### L 500.2500, L100.0100 ####[facility] [address] [place], [address] MCHC (RBC) [Mass/Vol] 32.8 g/dL Normal 32-36 [facility] Comment on above: Performed By: #### L 500.2500, L100.0100 ####[facility] [address] [place], [address] MCV (RBC) [Entitic vol] 88.5 fL Normal 80-94 [facility] Comment on above: Performed By: #### L 500.2500, L100.0100 ####[facility] [address] [place], [address] Monocytes/100 WBC (Bld) 7.9 % Normal 0-10 [facility] Comment on above: Performed By: #### L 500.2500, L100.0100 ####[facility] [address] [place], [address] Neutrophils/100 WBC (Bld) 70.8 % High 47-70 [facility] Comment on above: Performed By: #### L 500.2500, L100.0100 ####[facility] [address] [place], [address] Nucleated RBC (Bld) [#/Vol] 0 10*3/uL Normal 0-5 [facility] Comment on above: Performed By: #### L 500.2500, L100.0100 ####[facility] [address] [place], [address] Platelet mean volume (Bld) [Entitic vol] 10.2 fL Normal 6.2-12.0 [facility] Comment on above: Performed By: #### L 500.2500, L100.0100 ####[facility] [address] [place], [address] Platelets (Bld) [#/Vol] 183 10*3/uL Normal 150-450 [facility] Comment on above: Performed By: #### L 500.2500, L100.0100 ####[facility] [address] [place], [address] RBC (Bld) [#/Vol] 3.75 10*6/uL Low 4.6-6.2 [facility] Comment on above: Performed By: #### L 500.2500, L100.0100 ####[facility] [address] [place], [address] RDW SD 49.2 fl High 35.1-43.9 [facility] Comment on above: Performed By: #### L 500.2500, L100.0100 ####[facility] [address] [place], [address] WBC (Bld) [#/Vol] 6.0 10*3/uL Normal 4.4-11.0 [facility] Comment on above: Performed By: #### L 500.2500, L100.0100 ####[facility] [address] [place], [address] Abdomen Single Viewon 2024 Abdomen Single View Normal [facility] Culture, Blood (WB)on 2024 CUB No growth in 5 days. Normal [facility] Comment on above: Performed By: #### M 200.1000 ####[facility] [address] [place], [address] Urine Cultureon 03-30-2024 URC Normal [facility] Comment on above: Performed By: #### M 100.2200 ####[facility] [address] [place], [address] Culture, Blood (WB)on 2024 CUB Only aerobic bottle was collected in this set. KARTHIKEYAN No growth in 5 days. Normal [facility] Comment on above: Performed By: #### M 200.1000, L500.4050, L100.0100 ####[facility] [address] [place], [address] Basic Metabolic Profile (BMP )on 03-28-2024 BUN/CRE 16.5 RATIO Normal 10-20 [facility] Comment on above: Performed By: #### L 500.2500, L100.0100 ####[facility] [address] [place], [address] CA,Total 8.5 mg/dL Normal 8.5-10.1 [facility] Comment on above: Performed By: #### L 500.2500, L100.0100 ####[facility] [address] [place], [address] Chloride [Moles/Vol] 110 mmol/L High 98-107 [facility] Comment on above: Performed By: #### L 500.2500, L100.0100 ####[facility] [address] [place], [address] CO2 [Moles/Vol] 26.0 mmol/L Normal 21.0-32.0 [facility] Comment on above: Performed By: #### L 500.2500, L100.0100 ####[facility] [address] [place], [address] Creatinine [Mass/Vol] 0.85 mg/dL Normal 0.70-1.30 [facility] Comment on above: Result Comment: The validity of the calculated GFR GFRAA in patients over70 years has not been determined. Clinical correlation isessential. Performed By: #### L 500.2500, L100.0100 ####[facility] [address] [place], [address] ECRCL 89.73 ml/min Normal [facility] Comment on above: Performed By: #### L 500.2500, L100.0100 ####[facility] [address] [place], [address] EST GFR - AA 113 mL/min Normal >60 [facility] Comment on above: Result Comment: Afri can Guamanian GFR Calc Performed By: #### L 500.2500, L100.0100 ####[facility] [address] [place], [address] GAP 2 Low 5-15 [facility] Comment on above: Performed By: #### L 500.2500, L100.0100 ####[facility] [address] [place], [address] GFR/1.73 sq M.predicted among non-blacks MDRD (S/P/Bld) [Vol rate/Area] 93 mL/min/{1.73_m2} Normal >60 [facility] Comment on above: Result Comment: Non- GFR Calc Performed By: #### L 500.2500, L100.0100 ####[facility] [address] [place], [address] Glucose [Mass/Vol] 92 mg/dL Normal 74-106 [facility] Comment on above: Performed By: #### L 500.2500, L100.0100 ####[facility] [address] [place], [address] Potassium [Moles/Vol] 3.5 mmol/L Normal 3.5-5.1 [facility] Comment on above: Performed By: #### L 500.2500, L100.0100 ####[facility] [address] [place], [address] Sodium [Moles/Vol] 138 mmol/L Normal 136-145 [facility] Comment on above: Performed By: #### L 500.2500, L100.0100 ####[facility] [address] [place], [address] Urea nitrogen [Mass/Vol] 14 mg/dL Normal 7-18 [facility] Comment on above: Performed By: #### L 500.2500, L100.0100 ####[facility] [address] [place], [address] BUN Normal 7-18 [facility] Comment on above: Result Comment: Canc elled via OM: Order cancelled - Patient discharged Performed By: #### L 100.0100, L500.2500 ####[facility] [address] [place], [address] BUN/CRE Normal 10-20 [facility] Comment on above: Result Comment: Canc elled via OM: Order cancelled - Patient discharged Performed By: #### L 100.0100, L500.2500 ####[facility] [address] [place], [address] CA,Total Normal 8.5-10.1 [facility] Comment on above: Result Comment: Canc elled via OM: Order cancelled - Patient discharged Performed By: #### L 100.0100, L500.2500 ####[facility] [address] [place], [address] CL Normal 98-107 [facility] Comment on above: Result Comment: Canc elled via OM: Order cancelled - Patient discharged Performed By: #### L 100.0100, L500.2500 ####[facility] [address] [place], [address] CO2 Normal 21.0-32.0 [facility] Comment on above: Result Comment: Canc elled via OM: Order cancelled - Patient discharged Performed By: #### L 100.0100, L500.2500 ####[facility] [address] [place], [address] CREAT,SERUM Normal 0.70-1.30 [facility] Comment on above: Result Comment: Canc elled via OM: Order cancelled - Patient discharged Performed By: #### L 100.0100, L500.2500 ####[facility] [address] [place], [address] EST GFR Normal >60 [facility] Comment on above: Result Comment: Canc elled via OM: Order cancelled - Patient discharged Performed By: #### L 100.0100, L500.2500 ####[facility] [address] [place], [address] EST GFR - AA Normal >60 [facility] Comment on above: Result Comment: Canc elled via OM: Order cancelled - Patient discharged Performed By: #### L 100.0100, L500.2500 ####[facility] [address] [place], [address] GAP Normal 5-15 [facility] Comment on above: Result Comment: Canc elled via OM: Order cancelled - Patient discharged Performed By: #### L 100.0100, L500.2500 ####[facility] [address] [place], [address] GLU Normal 74-106 [facility] Comment on above: Result Comment: Canc elled via OM: Order cancelled - Patient discharged Performed By: #### L 100.0100, L500.2500 ####[facility] [address] [place], [address] Potassium Normal 3.5-5.1 [facility] Comment on above: Result Comment: Canc elled via OM: Order cancelled - Patient discharged Performed By: #### L 100.0100, L500.2500 ####[facility] [address] [place], [address] Basic Metabolic Profile (BMP) Normal 136-145 [facility] Comment on above: Result Comment: Canc elled via OM: Order cancelled - Patient discharged Performed By: #### L 100.0100, L500.2500 ####[facility] [address] [place], [address] CBC W/Diff, Automatedon 03-15 Absolute Lymph 0.91 X10 3/uL Normal 0.83-4.51 [facility] Comment on above: Performed By: #### L 500.2500, L100.0100 ####[facility] [address] [place], [address] Absolute Neut 3.7 X10 3/uL Normal 2.0-7.7 [facility] Comment on above: Performed By: #### L 500.2500, L100.0100 ####[facility] [address] [place], [address] Basophils/100 WBC (Bld) 0.7 % Normal 0-1 [facility] Comment on above: Performed By: #### L 500.2500, L100.0100 ####[facility] [address] [place], [address] Eosinophils/100 WBC (Bld) 4.3 % Normal 0-5 [facility] Comment on above: Performed By: #### L 500.2500, L100.0100 ####[facility] [address] [place], [address] Erythrocyte distribution width (RBC) [Ratio] 15.0 % High 11.6-14.6 [facility] Comment on above: Performed By: #### L 500.2500, L100.0100 ####[facility] [address] [place], [address] Hematocrit (Bld) [Volume fraction] 30.4 % Low 40-54 [facility] Comment on above: Performed By: #### L 500.2500, L100.0100 ####[facility] [address] [place], [address] Hemoglobin (Bld) [Mass/Vol] 9.9 g/dL Low 13.0-16.5 [facility] Comment on above: Performed By: #### L 500.2500, L100.0100 ####[facility] [address] [place], [address] IG% 0.400 Normal 0.0-0.9 [facility] Comment on above: Result Comment: IG% - Immature Granulocytes (promyelocytes, myelocytes andmetamyelocytes) > 1% indicates that a LEFT SHIFT is Present. Performed By: #### L 500.2500, L100.0100 ####[facility] [address] [place], [address] Lymphocytes/100 WBC (Bld) 16.9 % Low 19-41 [facility] Comment on above: Performed By: #### L 500.2500, L100.0100 ####[facility] [address] [place], [address] MCH (RBC) [Entitic mass] 28.6 pg Normal 27.0-32.0 [facility] Comment on above: Performed By: #### L 500.2500, L100.0100 ####[facility] [address] [place], [address] MCHC (RBC) [Mass/Vol] 32.6 g/dL Normal 32-36 [facility] Comment on above: Performed By: #### L 500.2500, L100.0100 ####[facility] [address] [place], [address] MCV (RBC) [Entitic vol] 87.9 fL Normal 80-94 [facility] Comment on above: Performed By: #### L 500.2500, L100.0100 ####[facility] [address] [place], [address] Monocytes/100 WBC (Bld) 10.0 % Normal 0-10 [facility] Comment on above: Performed By: #### L 500.2500, L100.0100 ####[facility] [address] [place], [address] Neutrophils/100 WBC (Bld) 67.7 % Normal 47-70 [facility] Comment on above: Performed By: #### L 500.2500, L100.0100 ####[facility] [address] [place], [address] Nucleated RBC (Bld) [#/Vol] 0 10*3/uL Normal 0-5 [facility] Comment on above: Performed By: #### L 500.2500, L100.0100 ####[facility] [address] [place], [address] Platelet mean volume (Bld) [Entitic vol] 10.0 fL Normal 6.2-12.0 [facility] Comment on above: Performed By: #### L 500.2500, L100.0100 ####[facility] [address] [place], [address] Platelets (Bld) [#/Vol] 167 10*3/uL Normal 150-450 [facility] Comment on above: Performed By: #### L 500.2500, L100.0100 ####[facility] [address] [place], [address] RBC (Bld) [#/Vol] 3.46 10*6/uL Low 4.6-6.2 [facility] Comment on above: Performed By: #### L 500.2500, L100.0100 ####[facility] [address] [place], [address] RDW SD 47.9 fl High 35.1-43.9 [facility] Comment on above: Performed By: #### L 500.2500, L100.0100 ####[facility] [address] [place], [address] WBC (Bld) [#/Vol] 5.4 10*3/uL Normal 4.4-11.0 [facility] Comment on above: Performed By: #### L 500.2500, L100.0100 ####[facility] [address] [place], [address] Absolute Neut Normal 2.0-7.7 [facility] Comment on above: Result Comment: Canc elled via OM: Order cancelled - Patient discharged Performed By: #### L 100.0100, L500.2500 ####[facility] [address] [place], [address] HCT Normal 40-54 [facility] Comment on above: Result Comment: Canc elled via OM: Order cancelled - Patient discharged Performed By: #### L 100.0100, L500.2500 ####[facility] [address] [place], [address] HGB Normal 13.0-16.5 [facility] Comment on above: Result Comment: Canc elled via OM: Order cancelled - Patient discharged Performed By: #### L 100.0100, L500.2500 ####[facility] [address] [place], [address] MCH Normal 27.0-32.0 [facility] Comment on above: Result Comment: Canc elled via OM: Order cancelled - Patient discharged Performed By: #### L 100.0100, L500.2500 ####[facility] [address] [place], [address] MCHC Normal 32-36 [facility] Comment on above: Result Comment: Canc elled via OM: Order cancelled - Patient discharged Performed By: #### L 100.0100, L500.2500 ####[facility] [address] [place], [address] MCV Normal 80-94 [facility] Comment on above: Result Comment: Canc elled via OM: Order cancelled - Patient discharged Performed By: #### L 100.0100, L500.2500 ####[facility] [address], [address] NEUT% Normal 47-70 [facility] Comment on above: Result Comment: Canc elled via OM: Order cancelled - Patient discharged Performed By: #### L 100.0100, L500.2500 ####[facility] [address] [place], [address] PLT Normal 150-450 [facility] Comment on above: Result Comment: Canc elled via OM: Order cancelled - Patient discharged Performed By: #### L 100.0100, L500.2500 ####[facility] [address] [place], [address] RBC Normal 4.6-6.2 [facility] Comment on above: Result Comment: Canc elled via OM: Order cancelled - Patient discharged Performed By: #### L 100.0100, L500.2500 ####[facility] [address] [place], [address] RDW CV Normal 11.6-14.6 [facility] Comment on above: Result Comment: Canc elled via OM: Order cancelled - Patient discharged Performed By: #### L 100.0100, L500.2500 ####[facility] [address] [place], [address] RDW SD Normal 35.1-43.9 [facility] Comment on above: Result Comment: Canc elled via OM: Order cancelled - Patient discharged Performed By: #### L 100.0100, L500.2500 ####[facility] [address] [place], [address] WBC Normal 4.4-11.0 [facility] Comment on above: Result Comment: Canc elled via OM: Order cancelled - Patient discharged Performed By: #### L 100.0100, L500.2500 ####[facility] [address] [place], [address] Culture, Blood (WB)on 2024 CUB LEFT WRIST Blood cultures x2, from two different sites No growth in 5 days. Normal [facility] Comment on above: Performed By: #### M 200.1000 ####[facility] [address] [place], [address] CUB Blood cultures x2, f rom two different sites No growth in 5 days. Normal [facility] Comment on above: Performed By: #### M 200.1000, L100.0100, L500.4050, L503.6005 ####[facility] [address] [place], [address] Basic Metabolic Profile (BMP )on 03-27-2024 BUN/CRE 13.2 RATIO Normal 10-20 [facility] Comment on above: Performed By: #### L 501.5200, L300.3900, L500.2500, L100.0100 ####[facility] [address] [place], [address] CA,Total 8.6 mg/dL Normal 8.5-10.1 [facility] Comment on above: Performed By: #### L 501.5200, L300.3900, L500.2500, L100.0100 ####[facility] [address] [place], [address] Chloride [Moles/Vol] 110 mmol/L High 98-107 [facility] Comment on above: Performed By: #### L 501.5200, L300.3900, L500.2500, L100.0100 ####[facility] [address] [place], [address] CO2 [Moles/Vol] 23.0 mmol/L Normal 21.0-32.0 [facility] Comment on above: Performed By: #### L 501.5200, L300.3900, L500.2500, L100.0100 ####[facility] [address] [place], [address] Creatinine [Mass/Vol] 0.83 mg/dL Normal 0.70-1.30 [facility] Comment on above: Result Comment: The validity of the calculated GFR GFRAA in patients over70 years has not been determined. Clinical correlation isessential. Performed By: #### L 501.5200, L300.3900, L500.2500, L100.0100 ####[facility] [address] [place], [address] ECRCL 90.60 ml/min Normal [facility] Comment on above: Performed By: #### L 501.5200, L300.3900, L500.2500, L100.0100 ####[facility] [address] [place], [address] EST GFR - AA 115 mL/min Normal >60 [facility] Comment on above: Result Comment: Afri can Guamanian GFR Calc Performed By: #### L 501.5200, L300.3900, L500.2500, L100.0100 ####[facility] [address] [place], [address] GAP 6 Normal 5-15 [facility] Comment on above: Performed By: #### L 501.5200, L300.3900, L500.2500, L100.0100 ####[facility] [address] [place], [address] GFR/1.73 sq M.predicted among non-blacks MDRD (S/P/Bld) [Vol rate/Area] 95 mL/min/{1.73_m2} Normal >60 [facility] Comment on above: Result Comment: Non- GFR Calc Performed By: #### L 501.5200, L300.3900, L500.2500, L100.0100 ####[facility] [address] [place], [address] Glucose [Mass/Vol] 88 mg/dL Normal 74-106 [facility] Comment on above: Performed By: #### L 501.5200, L300.3900, L500.2500, L100.0100 ####[facility] [address] [place], [address] Potassium [Moles/Vol] 3.4 mmol/L Low 3.5-5.1 [facility] Comment on above: Performed By: #### L 501.5200, L300.3900, L500.2500, L100.0100 ####[facility] [address] [place], [address] Sodium [Moles/Vol] 139 mmol/L Normal 136-145 [facility] Comment on above: Performed By: #### L 501.5200, L300.3900, L500.2500, L100.0100 ####[facility] [address] [place], [address] Urea nitrogen [Mass/Vol] 11 mg/dL Normal 7-18 [facility] Comment on above: Performed By: #### L 501.5200, L300.3900, L500.2500, L100.0100 ####[facility] [address] [place], [address] CBC W/Diff, Automatedon - Absolute Lymph 0.96 X10 3/uL Normal 0.83-4.51 [facility] Comment on above: Performed By: #### L 501.5200, L300.3900, L500.2500, L100.0100 ####[facility] [address] [place], [address] Absolute Neut 3.6 X10 3/uL Normal 2.0-7.7 [facility] Comment on above: Performed By: #### L 501.5200, L300.3900, L500.2500, L100.0100 ####[facility] [address] [place], [address] Basophils/100 WBC (Bld) 0.6 % Normal 0-1 [facility] Comment on above: Performed By: #### L 501.5200, L300.3900, L500.2500, L100.0100 ####[facility] [address] [place], [address] Eosinophils/100 WBC (Bld) 4.2 % Normal 0-5 [facility] Comment on above: Performed By: #### L 501.5200, L300.3900, L500.2500, L100.0100 ####[facility] [address] [place], [address] Erythrocyte distribution width (RBC) [Ratio] 14.9 % High 11.6-14.6 [facility] Comment on above: Performed By: #### L 501.5200, L300.3900, L500.2500, L100.0100 ####[facility] [address] [place], [address] Hematocrit (Bld) [Volume fraction] 31.5 % Low 40-54 [facility] Comment on above: Performed By: #### L 501.5200, L300.3900, L500.2500, L100.0100 ####[facility] [address] [place], [address] Hemoglobin (Bld) [Mass/Vol] 10.0 g/dL Low 13.0-16.5 [facility] Comment on above: Performed By: #### L 501.5200, L300.3900, L500.2500, L100.0100 ####[facility] [address] [place], [address] IG% 0.200 Normal 0.0-0.9 [facility] Comment on above: Result Comment: IG% - Immature Granulocytes (promyelocytes, myelocytes andmetamyelocytes) > 1% indicates that a LEFT SHIFT is Present. Performed By: #### L 501.5200, L300.3900, L500.2500, L100.0100 ####[facility] [address] [place], [address] Lymphocytes/100 WBC (Bld) 18.3 % Low 19-41 [facility] Comment on above: Performed By: #### L 501.5200, L300.3900, L500.2500, L100.0100 ####[facility] [address] [place], [address] MCH (RBC) [Entitic mass] 27.5 pg Normal 27.0-32.0 [facility] Comment on above: Performed By: #### L 501.5200, L300.3900, L500.2500, L100.0100 ####[facility] [address] [place], [address] MCHC (RBC) [Mass/Vol] 31.7 g/dL Low 32-36 [facility] Comment on above: Performed By: #### L 501.5200, L300.3900, L500.2500, L100.0100 ####[facility] [address] [place], [address] MCV (RBC) [Entitic vol] 86.8 fL Normal 80-94 [facility] Comment on above: Performed By: #### L 501.5200, L300.3900, L500.2500, L100.0100 ####[facility] [address] [place], [address] Monocytes/100 WBC (Bld) 9.0 % Normal 0-10 [facility] Comment on above: Performed By: #### L 501.5200, L300.3900, L500.2500, L100.0100 ####[facility] [address] [place], [address] Neutrophils/100 WBC (Bld) 67.7 % Normal 47-70 [facility] Comment on above: Performed By: #### L 501.5200, L300.3900, L500.2500, L100.0100 ####[facility] [address] [place], [address] Nucleated RBC (Bld) [#/Vol] 0 10*3/uL Normal 0-5 [facility] Comment on above: Performed By: #### L 501.5200, L300.3900, L500.2500, L100.0100 ####[facility] [address] [place], [address] Platelet mean volume (Bld) [Entitic vol] 9.6 fL Normal 6.2-12.0 [facility] Comment on above: Performed By: #### L 501.5200, L300.3900, L500.2500, L100.0100 ####[facility] [address] [place], [address] Platelets (Bld) [#/Vol] 166 10*3/uL Normal 150-450 [facility] Comment on above: Performed By: #### L 501.5200, L300.3900, L500.2500, L100.0100 ####[facility] [address] [place], [address] RBC (Bld) [#/Vol] 3.63 10*6/uL Low 4.6-6.2 [facility] Comment on above: Performed By: #### L 501.5200, L300.3900, L500.2500, L100.0100 ####[facility] [address] [place], [address] RDW SD 47.6 fl High 35.1-43.9 [facility] Comment on above: Performed By: #### L 501.5200, L300.3900, L500.2500, L100.0100 ####[facility] [address] [place], [address] WBC (Bld) [#/Vol] 5.2 10*3/uL Normal 4.4-11.0 [facility] Comment on above: Performed By: #### L 501.5200, L300.3900, L500.2500, L100.0100 ####[facility] [address] [place], [address] Magnesiumon 03-27-2024 Magnesium [Mass/Vol] 2.1 mg/dL Normal 1.6-2.6 [facility] Comment on above: Performed By: #### L 501.5200, L300.3900, L500.2500, L100.0100 ####[facility] [address] [place], [address] Prothrombin Time w/INRon INR Coag (PPP) [Relative time] 1.4 {INR} Normal [facility] Comment on above: Performed By: #### L 501.5200, L300.3900, L500.2500, L100.0100 ####[facility] [address] [place], [address] PT Coag (PPP) [Time] 17.0 s High 11.7-14.9 [facility] Comment on above: Performed By: #### L 501.5200, L300.3900, L500.2500, L100.0100 ####[facility] [address] [place], [address] Culture, Blood (WB)on 2024 CUB Normal [facility] Comment on above: Performed By: #### M 200.1000, L100.0100, L500.2500 ####[facility] [address] [place], [address] Abdomen/Pelvis WITH Contrast on 03-24-2024 Abdomen/Pelvis WITH Contrast Normal [facility] CBC W/Diff, Automatedon 03-15-2024 Absolute Lymph 0.84 X10 3/uL Normal 0.83-4.51 [facility] Comment on above: Performed By: #### M 200.1000, L500.4050, L100.0100 ####[facility] [address] [place], [address] Absolute Neut 4.8 X10 3/uL Normal 2.0-7.7 [facility] Comment on above: Performed By: #### M 200.1000, L500.4050, L100.0100 ####[facility] [address] [place], [address] Basophils/100 WBC (Bld) 0.3 % Normal 0-1 [facility] Comment on above: Performed By: #### M 200.1000, L500.4050, L100.0100 ####[facility] [address] [place], [address] Eosinophils/100 WBC (Bld) 1.4 % Normal 0-5 [facility] Comment on above: Performed By: #### M 200.1000, L500.4050, L100.0100 ####[facility] [address] [place], [address] Erythrocyte distribution width (RBC) [Ratio] 15.8 % High 11.6-14.6 [facility] Comment on above: Performed By: #### M 200.1000, L500.4050, L100.0100 ####[facility] [address] [place], [address] Hematocrit (Bld) [Volume fraction] 28.8 % Low 40-54 [facility] Comment on above: Performed By: #### M 200.1000, L500.4050, L100.0100 ####[facility] [address] [place], [address] Hemoglobin (Bld) [Mass/Vol] 9.4 g/dL Low 13.0-16.5 [facility] Comment on above: Performed By: #### M 200.1000, L500.4050, L100.0100 ####[facility] [address] [place], [address] IG% 0.500 Normal 0.0-0.9 [facility] Comment on above: Result Comment: IG% - Immature Granulocytes (promyelocytes, myelocytes andmetamyelocytes) > 1% indicates that a LEFT SHIFT is Present. Performed By: #### M 200.1000, L500.4050, L100.0100 ####[facility] [address] [place], [address] Lymphocytes/100 WBC (Bld) 13.0 % Low 19-41 [facility] Comment on above: Performed By: #### M 200.1000, L500.4050, L100.0100 ####[facility] [address] [place], [address] MCH (RBC) [Entitic mass] 28.5 pg Normal 27.0-32.0 [facility] Comment on above: Performed By: #### M 200.1000, L500.4050, L100.0100 ####[facility] [address] [place], [address] MCHC (RBC) [Mass/Vol] 32.6 g/dL Normal 32-36 [facility] Comment on above: Performed By: #### M 200.1000, L500.4050, L100.0100 ####[facility] [address] [place], [address] MCV (RBC) [Entitic vol] 87.3 fL Normal 80-94 [facility] Comment on above: Performed By: #### M 200.1000, L500.4050, L100.0100 ####[facility] [address] [place], [address] Monocytes/100 WBC (Bld) 10.7 % High 0-10 [facility] Comment on above: Performed By: #### M 200.1000, L500.4050, L100.0100 ####[facility] [address] [place], [address] Neutrophils/100 WBC (Bld) 74.1 % High 47-70 [facility] Comment on above: Performed By: #### M 200.1000, L500.4050, L100.0100 ####[facility] [address] [place], [address] Nucleated RBC (Bld) [#/Vol] 0 10*3/uL Normal 0-5 [facility] Comment on above: Performed By: #### M 200.1000, L500.4050, L100.0100 ####[facility] [address] [place], [address] Platelet mean volume (Bld) [Entitic vol] 9.8 fL Normal 6.2-12.0 [facility] Comment on above: Performed By: #### M 200.1000, L500.4050, L100.0100 ####[facility] [address] [place], [address] Platelets (Bld) [#/Vol] 137 10*3/uL Low 150-450 [facility] Comment on above: Performed By: #### M 200.1000, L500.4050, L100.0100 ####[facility] [address] [place], [address] RBC (Bld) [#/Vol] 3.30 10*6/uL Low 4.6-6.2 [facility] Comment on above: Performed By: #### M 200.1000, L500.4050, L100.0100 ####[facility] [address] [place], [address] RDW SD 50.2 fl High 35.1-43.9 [facility] Comment on above: Performed By: #### M 200.1000, L500.4050, L100.0100 ####[facility] [address] [place], [address] WBC (Bld) [#/Vol] 6.5 10*3/uL Normal 4.4-11.0 [facility] Comment on above: Performed By: #### M 200.1000, L500.4050, L100.0100 ####[facility] [address] [place], [address] Comprehensive Metabolic Prof [facility] 03-24-2024 Albumin [Mass/Vol] 2.6 g/dL Low 3.2-5.0 [facility] Comment on above: Performed By: #### M 200.1000, L500.4050, L100.0100 ####[facility] [address] [place], [address] Albumin/Globulin [Mass ratio] 0.7 {ratio} Low 0.9-2.4 [facility] Comment on above: Performed By: #### M 200.1000, L500.4050, L100.0100 ####[facility] [address] [place], [address] ALK P 51 U/L Normal 45-117 [facility] Comment on above: Performed By: #### M 200.1000, L500.4050, L100.0100 ####[facility] [address] [place], [address] ALT [Catalytic activity/Vol] 14 U/L Low 16-61 [facility] Comment on above: Performed By: #### M 200.1000, L500.4050, L100.0100 ####[facility] [address] [place], [address] AST [Catalytic activity/Vol] 13 U/L Low 15-37 [facility] Comment on above: Performed By: #### M 200.1000, L500.4050, L100.0100 ####[facility] [address] [place], [address] Bilirubin [Mass/Vol] 0.80 mg/dL Normal 0.20-1.00 [facility] Comment on above: Result Comment: For patients on eltrombopag therapy, use of Dimension Mar Lin TBIL is not recommended. Performed By: #### M 200.1000, L500.4050, L100.0100 ####[facility] [address] [place], [address] BUN/CRE 21.7 RATIO High 10-20 [facility] Comment on above: Performed By: #### M 200.1000, L500.4050, L100.0100 ####[facility] [address] [place], [address] CA,Total 8.0 mg/dL Low 8.5-10.1 [facility] Comment on above: Performed By: #### M 200.1000, L500.4050, L100.0100 ####[facility] [address] [place], [address] Chloride [Moles/Vol] 111 mmol/L High 98-107 [facility] Comment on above: Performed By: #### M 200.1000, L500.4050, L100.0100 ####[facility] [address] [place], [address] CO2 [Moles/Vol] 22.0 mmol/L Normal 21.0-32.0 [facility] Comment on above: Performed By: #### M 200.1000, L500.4050, L100.0100 ####[facility] [address] [place], [address] Creatinine [Mass/Vol] 0.87 mg/dL Normal 0.70-1.30 [facility] Comment on above: Result Comment: The validity of the calculated GFR GFRAA in patients over70 years has not been determined. Clinical correlation isessential. Performed By: #### M 200.1000, L500.4050, L100.0100 ####[facility] [address] [place], [address] ECRCL 86.11 ml/min Normal [facility] Comment on above: Performed By: #### M 200.1000, L500.4050, L100.0100 ####[facility] [address] [place], [address] EST GFR - AA 109 mL/min Normal >60 [facility] Comment on above: Result Comment: Afri can Guamanian GFR Calc Performed By: #### M 200.1000, L500.4050, L100.0100 ####[facility] [address] [place], [address] GAP 5 Normal 5-15 [facility] Comment on above: Performed By: #### M 200.1000, L500.4050, L100.0100 ####[facility] [address] [place], [address] GFR/1.73 sq M.predicted among non-blacks MDRD (S/P/Bld) [Vol rate/Area] 90 mL/min/{1.73_m2} Normal >60 [facility] Comment on above: Result Comment: Non- GFR Calc Performed By: #### M 200.1000, L500.4050, L100.0100 ####[facility] [address] [place], [address] Globulin (S) [Mass/Vol] 3.9 g/dL Normal 2.2-4.2 [facility] Comment on above: Performed By: #### M 200.1000, L500.4050, L100.0100 ####[facility] [address] [place], [address] Glucose [Mass/Vol] 95 mg/dL Normal 74-106 [facility] Comment on above: Performed By: #### M 200.1000, L500.4050, L100.0100 ####[facility] [address] [place], [address] Potassium [Moles/Vol] 3.6 mmol/L Normal 3.5-5.1 [facility] Comment on above: Performed By: #### M 200.1000, L500.4050, L100.0100 ####[facility] [address] [place], [address] Sodium [Moles/Vol] 138 mmol/L Normal 136-145 [facility] Comment on above: Performed By: #### M 200.1000, L500.4050, L100.0100 ####[facility] [address] [place], [address] T PROT 6.5 g/dL Normal 6.4-8.2 [facility] Comment on above: Performed By: #### M 200.1000, L500.4050, L100.0100 ####[facility] [address] [place], [address] Urea nitrogen [Mass/Vol] 19 mg/dL High 7-18 [facility] Comment on above: Performed By: #### M 200.1000, L500.4050, L100.0100 ####[facility] [address] [place], [address] Gentamicin, Randomon 025 GENT.RANDOM 3.2 ug/mL Normal [facility] Comment on above: Order Comment: Comme nts: PLEASE DRAW CLOSE TO 0100 POSSIBLE :) Result Comment: [place] om level based on once daily dose of antibiotic.Please contact Pharmacy Services (#[phone]) for interpretationof results.This result does not represent either a peak or a troughlevel for this drug. Performed By: #### L 501.8650 ####[facility] [address] [place], [address] M8200.1000on 03-24-2024 M8200.1000 Normal [facility] Comment on above: Performed By: #### M 8200.1000 ####[facility] [address] [place], [address] Phosphoruson 03-24-2024 Phosphate [Mass/Vol] 2.8 mg/dL Normal 2.5-4.9 [facility] Comment on above: Performed By: #### L 501.2300 ####[facility] [address] [place], [address] 12 Lead EKGon 03-23-2024 12 Lead EKG Normal [facility] CBC W/Diff, Automatedon Absolute Lymph 0.29 X10 3/uL Low 0.83-4.51 [facility] Comment on above: Performed By: #### M 200.1000, L100.0100, L500.4050, L503.6005 ####[facility] [id number] [place], [address] Absolute Neut 8.9 X10 3/uL High 2.0-7.7 [facility] Comment on above: Performed By: #### M 200.1000, L100.0100, L500.4050, L503.6005 ####[facility] [address] [place], [address] Basophils/100 WBC (Bld) 0.3 % Normal 0-1 [facility] Comment on above: Performed By: #### M 200.1000, L100.0100, L500.4050, L503.6005 ####[facility] [address] [place], [address] Eosinophils/100 WBC (Bld) 0.1 % Normal 0-5 [facility] Comment on above: Performed By: #### M 200.1000, L100.0100, L500.4050, L503.6005 ####[facility] [address] [place], [address] Erythrocyte distribution width (RBC) [Ratio] 15.7 % High 11.6-14.6 [facility] Comment on above: Performed By: #### M 200.1000, L100.0100, L500.4050, L503.6005 ####[facility] [address] [place], [address] Hematocrit (Bld) [Volume fraction] 33.0 % Low 40-54 [facility] Comment on above: Performed By: #### M 200.1000, L100.0100, L500.4050, L503.6005 ####[facility] [address] [place], [address] Hemoglobin (Bld) [Mass/Vol] 10.4 g/dL Low 13.0-16.5 [facility] Comment on above: Performed By: #### M 200.1000, L100.0100, L500.4050, L503.6005 ####[facility] [address] [place], [address] IG% 0.200 Normal 0.0-0.9 [facility] Comment on above: Result Comment: IG% - Immature Granulocytes (promyelocytes, myelocytes andmetamyelocytes) > 1% indicates that a LEFT SHIFT is Present. Performed By: #### M 200.1000, L100.0100, L500.4050, L503.6005 ####[facility] [address] [place], [address] Lymphocytes/100 WBC (Bld) 3.0 % Low 19-41 [facility] Comment on above: Performed By: #### M 200.1000, L100.0100, L500.4050, L503.6005 ####[facility] [address] [place], [address] MCH (RBC) [Entitic mass] 27.6 pg Normal 27.0-32.0 [facility] Comment on above: Performed By: #### M 200.1000, L100.0100, L500.4050, L503.6005 ####[facility] [address] [place], [address] MCHC (RBC) [Mass/Vol] 31.5 g/dL Low 32-36 [facility] Comment on above: Performed By: #### M 200.1000, L100.0100, L500.4050, L503.6005 ####[facility] [address] [place], [address] MCV (RBC) [Entitic vol] 87.5 fL Normal 80-94 [facility] Comment on above: Performed By: #### M 200.1000, L100.0100, L500.4050, L503.6005 ####[facility] [address] [place], [address] Monocytes/100 WBC (Bld) 6.1 % Normal 0-10 [facility] Comment on above: Performed By: #### M 200.1000, L100.0100, L500.4050, L503.6005 ####[facility] [address] [place], [address] Neutrophils/100 WBC (Bld) 90.3 % High 47-70 [facility] Comment on above: Performed By: #### M 200.1000, L100.0100, L500.4050, L503.6005 ####[facility] [address] [place], [address] Nucleated RBC (Bld) [#/Vol] 0 10*3/uL Normal 0-5 [facility] Comment on above: Performed By: #### M 200.1000, L100.0100, L500.4050, L503.6005 ####[facility] [address] [place], [address] Platelet mean volume (Bld) [Entitic vol] 9.6 fL Normal 6.2-12.0 [facility] Comment on above: Performed By: #### M 200.1000, L100.0100, L500.4050, L503.6005 ####[facility] [address] [place], [address] Platelets (Bld) [#/Vol] 165 10*3/uL Normal 150-450 [facility] Comment on above: Performed By: #### M 200.1000, L100.0100, L500.4050, L503.6005 ####[facility] [address] [place], [address] RBC (Bld) [#/Vol] 3.77 10*6/uL Low 4.6-6.2 [facility] Comment on above: Performed By: #### M 200.1000, L100.0100, L500.4050, L503.6005 ####[facility] [address] [place], [address] RDW SD 50.0 fl High 35.1-43.9 [facility] Comment on above: Performed By: #### M 200.1000, L100.0100, L500.4050, L503.6005 ####[facility] [address] [place], [address] WBC (Bld) [#/Vol] 9.8 10*3/uL Normal 4.4-11.0 [facility] Comment on above: Performed By: #### M 200.1000, L100.0100, L500.4050, L503.6005 ####[facility] [address] [place], [address] Comprehensive Metabolic Prof ilon 03-23-2024 Albumin [Mass/Vol] 2.9 g/dL Low 3.2-5.0 [facility] Comment on above: Performed By: #### M 200.1000, L100.0100, L500.4050, L503.6005 ####[facility] [address] [place], [address] Albumin/Globulin [Mass ratio] 0.7 {ratio} Low 0.9-2.4 [facility] Comment on above: Performed By: #### M 200.1000, L100.0100, L500.4050, L503.6005 ####[facility] [address] [place], [address] ALK P 60 U/L Normal 45-117 [facility] Comment on above: Performed By: #### M 200.1000, L100.0100, L500.4050, L503.6005 ####[facility] [address] [place], [address] ALT [Catalytic activity/Vol] 17 U/L Normal 16-61 [facility] Comment on above: Performed By: #### M 200.1000, L100.0100, L500.4050, L503.6005 ####[facility] [address] [place], [address] AST [Catalytic activity/Vol] 13 U/L Low 15-37 [facility] Comment on above: Performed By: #### M 200.1000, L100.0100, L500.4050, L503.6005 ####[facility] [address] [place], [address] Bilirubin [Mass/Vol] 0.80 mg/dL Normal 0.20-1.00 [facility] Comment on above: Result Comment: For patients on eltrombopag therapy, use of Dimension Mar Lin TBIL is not recommended. Performed By: #### M 200.1000, L100.0100, L500.4050, L503.6005 ####[facility] [address] [place], [address] BUN/CRE 20.8 RATIO High 10-20 [facility] Comment on above: Performed By: #### M 200.1000, L100.0100, L500.4050, L503.6005 ####[facility] [address] [place], [address] CA,Total 8.7 mg/dL Normal 8.5-10.1 [facility] Comment on above: Performed By: #### M 200.1000, L100.0100, L500.4050, L503.6005 ####[facility] [address] [place], [address] Chloride [Moles/Vol] 108 mmol/L High 98-107 [facility] Comment on above: Performed By: #### M 200.1000, L100.0100, L500.4050, L503.6005 ####[facility] [address] [place], [address] CO2 [Moles/Vol] 23.0 mmol/L Normal 21.0-32.0 [facility] Comment on above: Performed By: #### M 200.1000, L100.0100, L500.4050, L503.6005 ####[facility] [address] [place], [address] Creatinine [Mass/Vol] 1.20 mg/dL Normal 0.70-1.30 [facility] Comment on above: Result Comment: The validity of the calculated GFR GFRAA in patients over70 years has not been determined. Clinical correlation isessential. Performed By: #### M 200.1000, L100.0100, L500.4050, L503.6005 ####[facility] [address] [place], [address] ECRCL 62.20 ml/min Normal [facility] Comment on above: Performed By: #### M 200.1000, L100.0100, L500.4050, L503.6005 ####[facility] [address] [place], [address] EST GFR - AA 75 mL/min Normal >60 [facility] Comment on above: Result Comment: Afri can Guamanian GFR Calc Performed By: #### M 200.1000, L100.0100, L500.4050, L503.6005 ####[facility] [address] [place], [address] GAP 6 Normal 5-15 [facility] Comment on above: Performed By: #### M 200.1000, L100.0100, L500.4050, L503.6005 ####[facility] [address] [place], [address] GFR/1.73 sq M.predicted among non-blacks MDRD (S/P/Bld) [Vol rate/Area] 62 mL/min/{1.73_m2} Normal >60 [facility] Comment on above: Result Comment: Non- GFR Calc Performed By: #### M 200.1000, L100.0100, L500.4050, L503.6005 ####[facility] [address] [place], [address] Globulin (S) [Mass/Vol] 4.3 g/dL High 2.2-4.2 [facility] Comment on above: Performed By: #### M 200.1000, L100.0100, L500.4050, L503.6005 ####[facility] [address] [place], [address] Glucose [Mass/Vol] 163 mg/dL High 74-106 [facility] Comment on above: Result Comment: Fast ing Glucose result greater than or equal to 126 mg/dLsuggests DIABETES MELLITUS per A.D.A. criteria. Performed By: #### M 200.1000, L100.0100, L500.4050, L503.6005 ####[facility] [address] [place], [address] Potassium [Moles/Vol] 4.2 mmol/L Normal 3.5-5.1 [facility] Comment on above: Performed By: #### M 200.1000, L100.0100, L500.4050, L503.6005 ####[facility] [address] [place], [address] Sodium [Moles/Vol] 137 mmol/L Normal 136-145 [facility] Comment on above: Performed By: #### M 200.1000, L100.0100, L500.4050, L503.6005 ####[facility] [address] [place], [address] T PROT 7.2 g/dL Normal 6.4-8.2 [facility] Comment on above: Performed By: #### M 200.1000, L100.0100, L500.4050, L503.6005 ####[facility] [address] [place], [address] Urea nitrogen [Mass/Vol] 25 mg/dL High 7-18 [facility] Comment on above: Performed By: #### M 200.1000, L100.0100, L500.4050, L503.6005 ####[facility] [address] [place], [address] Emergency Department Summary on 03-23-2024 Emergency Department Summary Normal [facility] H AND P Exam - Hospitaliston 03-23-2024 H&P Exam - Hospitalist Normal [facility] Lactic Acidon 03-23-2024 Lactate [Moles/Vol] 2.0 mmol/L Normal 0.4-1.9 [facility] Comment on above: Result Comment: Crit ical Result(s) Called at: 18:37:25 03/23/2024 by: DIANNE. Results read back by Preeti Alvarado Performed By: #### L 503.6005 ####[facility] [address] [place], [address] Lactate [Moles/Vol] 2.6 mmol/L Invalid Interpretation Code 0.4-1.9 [facility] Comment on above: Order Comment: Y Result Comment: Crit ical Result(s) Called at: 14:05:42 03/23/2024 by:Antoinette Yang. Results read back by akshat. Performed By: #### M 200.1000, L100.0100, L500.4050, L503.6005 ####[facility] [address] [place], [address] Legionella Antigen Urineon 0 03-23-2024 LEGU Normal [facility] Comment on above: Performed By: #### M 300.4600, M300.4500 ####[facility] [address] [place], [address] Magnesiumon 03-23-2024 Magnesium [Mass/Vol] 2.5 mg/dL Normal 1.6-2.6 [facility] Comment on above: Order Comment: Comme nts: May add to ED labsComments: may add to ED labs Performed By: #### L 501.5200, L501.2300 ####[facility] [address] [place], [address] Phosphoruson 03-23-2024 Phosphate [Mass/Vol] 2.2 mg/dL Low 2.5-4.9 [facility] Comment on above: Order Comment: Comme nts: May add to ED labsComments: may add to ED labs Performed By: #### L 501.5200, L501.2300 ####[facility] [address] [place], [address] RESPIRATORY PANEL MOLECULARo n 03-23-2024 RP PANEL Normal [facility] Comment on above: Performed By: #### M 100.638 ####[facility] [address] [place], [address] Strep pneumoniae Antig(UR,CS F)on 03-23-2024 STPAG Normal [facility] Comment on above: Performed By: #### M 300.4600, M300.4500 ####[facility] [address] [place], [address] Urinalysis, Completeon 03-23 BACTERIA 1+ /hpf Normal None Seen [facility] Comment on above: Order Comment: COLLE CTOR TO SPECIFY Performed By: #### M 100.2200, L400.0001 ####[facility] [address] [place], [address] CAST,WBC 0-5 SEEN Normal None Seen [facility] Comment on above: Order Comment: COLLE CTOR TO SPECIFY Performed By: #### M 100.2200, L400.0001 ####[facility] [address] [place], [address] Mucus Ql (Urine sed) 1+ /hpf Normal [facility] Comment on above: Order Comment: COLLE CTOR TO SPECIFY Performed By: #### M 100.2200, L400.0001 ####[facility] [address] [place], [address] RBC 0-5 SEEN Normal 0-5 [facility] Comment on above: Order Comment: COLLE CTOR TO SPECIFY Performed By: #### M 100.2200, L400.0001 ####[facility] [address] [place], [address] WBC 50-100 SEEN Normal 0-5 [facility] Comment on above: Order Comment: COLLE CTOR TO SPECIFY Performed By: #### M 100.2200, L400.0001 ####[facility] [address] [place], [address] EPI,SQUAMOUS 0 SEEN Normal 0-5 [facility] Comment on above: Order Comment: COLLE CTOR TO SPECIFY Performed By: #### M 100.2200, L400.0001 ####[facility] [address] [place], [address] Basic Metabolic Profile (BMP )on 03-22-2024 BUN/CRE 23.6 RATIO High 10-20 [facility] Comment on above: Performed By: #### M 200.1000, L100.0100, L500.2500 ####[facility] [address] [place], [address] CA,Total 9.4 mg/dL Normal 8.5-10.1 [facility] Comment on above: Performed By: #### M 200.1000, L100.0100, L500.2500 ####[facility] [address] [place], [address] Chloride [Moles/Vol] 106 mmol/L Normal 98-107 [facility] Comment on above: Performed By: #### M 200.1000, L100.0100, L500.2500 ####[facility] [address] [place], [address] CO2 [Moles/Vol] 24.0 mmol/L Normal 21.0-32.0 [facility] Comment on above: Performed By: #### M 200.1000, L100.0100, L500.2500 ####[facility] [address] [place], [address] Creatinine [Mass/Vol] 1.06 mg/dL Normal 0.70-1.30 [facility] Comment on above: Result Comment: The validity of the calculated GFR GFRAA in patients over70 years has not been determined. Clinical correlation isessential. Performed By: #### M 200.1000, L100.0100, L500.2500 ####[facility] [address] [place], [address] ECRCL 70.32 ml/min Normal [facility] Comment on above: Performed By: #### M 200.1000, L100.0100, L500.2500 ####[facility] [address] [place], [address] EST GFR - AA 87 mL/min Normal >60 [facility] Comment on above: Result Comment: Afri can Guamanian GFR Calc Performed By: #### M 200.1000, L100.0100, L500.2500 ####[facility] [address] [place], [address] GAP 7 Normal 5-15 [facility] Comment on above: Performed By: #### M 200.1000, L100.0100, L500.2500 ####[facility] [address] [place], [address] GFR/1.73 sq M.predicted among non-blacks MDRD (S/P/Bld) [Vol rate/Area] 72 mL/min/{1.73_m2} Normal >60 [facility] Comment on above: Result Comment: Non- GFR Calc Performed By: #### M 200.1000, L100.0100, L500.2500 ####[facility] [address] [place], [address] Glucose [Mass/Vol] 118 mg/dL High 74-106 [facility] Comment on above: Result Comment: Fast ing Glucose result from 100 to 125 mg/dLsuggests IMPAIRED HOMEOSTASIS per A.D.A. criteria. Performed By: #### M 200.1000, L100.0100, L500.2500 ####[facility] [address] [place], [address] Potassium [Moles/Vol] 4.5 mmol/L Normal 3.5-5.1 [facility] Comment on above: Performed By: #### M 200.1000, L100.0100, L500.2500 ####[facility] [address] [place], [address] Sodium [Moles/Vol] 137 mmol/L Normal 136-145 [facility] Comment on above: Performed By: #### M 200.1000, L100.0100, L500.2500 ####[facility] [address] [place], [address] Urea nitrogen [Mass/Vol] 25 mg/dL High 7-18 [facility] Comment on above: Performed By: #### M 200.1000, L100.0100, L500.2500 ####[facility] [address] [place], [address] CBC W/Diff, Automatedon 01-0 8-2025 Absolute Lymph 0.43 X10 3/uL Low 0.83-4.51 [facility] Comment on above: Performed By: #### M 200.1000, L100.0100, L500.2500 ####[facility] [address] [place], [address] Absolute Neut 10.8 X10 3/uL High 2.0-7.7 [facility] Comment on above: Performed By: #### M 200.1000, L100.0100, L500.2500 ####[facility] [address] [place], [address] Basophils/100 WBC (Bld) 0.3 % Normal 0-1 [facility] Comment on above: Performed By: #### M 200.1000, L100.0100, L500.2500 ####[facility] [address] [place], [address] Eosinophils/100 WBC (Bld) 0.5 % Normal 0-5 [facility] Comment on above: Performed By: #### M 200.1000, L100.0100, L500.2500 ####[facility] [address] [place], [address] Erythrocyte distribution width (RBC) [Ratio] 15.1 % High 11.6-14.6 [facility] Comment on above: Performed By: #### M 200.1000, L100.0100, L500.2500 ####[facility] [address] [place], [address] Hematocrit (Bld) [Volume fraction] 34.1 % Low 40-54 [facility] Comment on above: Performed By: #### M 200.1000, L100.0100, L500.2500 ####[facility] [address] [place], [address] Hemoglobin (Bld) [Mass/Vol] 11.3 g/dL Low 13.0-16.5 [facility] Comment on above: Performed By: #### M 200.1000, L100.0100, L500.2500 ####[facility] [address] [place], [address] IG% 0.400 Normal 0.0-0.9 [facility] Comment on above: Result Comment: IG% - Immature Granulocytes (promyelocytes, myelocytes andmetamyelocytes) > 1% indicates that a LEFT SHIFT is Present. Performed By: #### M 200.1000, L100.0100, L500.2500 ####[facility] [address] [place], [address] Lymphocytes/100 WBC (Bld) 3.6 % Low 19-41 [facility] Comment on above: Performed By: #### M 200.1000, L100.0100, L500.2500 ####[facility] [address] [place], [address] MCH (RBC) [Entitic mass] 28.5 pg Normal 27.0-32.0 [facility] Comment on above: Performed By: #### M 200.1000, L100.0100, L500.2500 ####[facility] [address] [place], [address] MCHC (RBC) [Mass/Vol] 33.1 g/dL Normal 32-36 [facility] Comment on above: Performed By: #### M 200.1000, L100.0100, L500.2500 ####[facility] [address] [place], [address] MCV (RBC) [Entitic vol] 85.9 fL Normal 80-94 [facility] Comment on above: Performed By: #### M 200.1000, L100.0100, L500.2500 ####[facility] [address] [place], [address] Monocytes/100 WBC (Bld) 5.3 % Normal 0-10 [facility] Comment on above: Performed By: #### M 200.1000, L100.0100, L500.2500 ####[facility] [address] [place], [address] Neutrophils/100 WBC (Bld) 89.9 % High 47-70 [facility] Comment on above: Performed By: #### M 200.1000, L100.0100, L500.2500 ####[facility] [address] [place], [address] Nucleated RBC (Bld) [#/Vol] 0 10*3/uL Normal 0-5 [facility] Comment on above: Performed By: #### M 200.1000, L100.0100, L500.2500 ####[facility] [address] [place], [address] Platelet mean volume (Bld) [Entitic vol] 10.0 fL Normal 6.2-12.0 [facility] Comment on above: Performed By: #### M 200.1000, L100.0100, L500.2500 ####[facility] [address] [place], [address] Platelets (Bld) [#/Vol] 187 10*3/uL Normal 150-450 [facility] Comment on above: Performed By: #### M 200.1000, L100.0100, L500.2500 ####[facility] [address] [place], [address] RBC (Bld) [#/Vol] 3.97 10*6/uL Low 4.6-6.2 [facility] Comment on above: Performed By: #### M 200.1000, L100.0100, L500.2500 ####[facility] [address] [place], [address] RDW SD 47.1 fl High 35.1-43.9 [facility] Comment on above: Performed By: #### M 200.1000, L100.0100, L500.2500 ####[facility] [address] [place], [address] WBC (Bld) [#/Vol] 12.0 10*3/uL High 4.4-11.0 [facility] Comment on above: Performed By: #### M 200.1000, L100.0100, L500.2500 ####[facility] [address] [place], [address] COVID 19 AG RAPID (PRUDENCIO Herman)on 03-22-2024 SARS-CoV-2 (COVID-19) RNA ALEXYS+probe Ql (Unsp spec) Normal [facility] Comment on above: Performed By: #### M 100.505 ####[facility] [address] [place], [address] Chest PA and Lateralon 03-22 Chest PA and Lateral Normal [facility] Urinalysis, Completeon 03-22 WBC >100 SEEN Normal 0-5 [facility] Comment on above: Order Comment: AILIN TER SPECIMEN Result Comment: Micr oscopic field is filled. Other elements may beobscured. Performed By: #### L 400.0001 ####[facility] [address] [place], [address] BACTERIA 0 SEEN Normal None Seen [facility] Comment on above: Order Comment: AILIN TER SPECIMEN Performed By: #### L 400.0001 ####[facility] [address] [place], [address] EPI,SQUAMOUS 0 SEEN Normal 0-5 [facility] Comment on above: Order Comment: AILIN TER SPECIMEN Performed By: #### L 400.0001 ####[facility] [address] [place], [address] Mucus Ql (Urine sed) 0 SEEN Normal [facility] Comment on above: Order Comment: AILIN TER SPECIMEN Performed By: #### L 400.0001 ####[facility] [address] [place], [address] RBC 0 SEEN Normal 0-5 [facility] Comment on above: Order Comment: AILIN TER SPECIMEN Performed By: #### L 400.0001 ####[facility] [address] [place], [address] Basic Metabolic Profile (BMP )on 03-21-2024 BUN/CRE 23.9 RATIO High 10-20 [facility] Comment on above: Performed By: #### L 100.0100, L500.2500 ####[facility] [address] [place], [address] CA,Total 8.7 mg/dL Normal 8.5-10.1 [facility] Comment on above: Performed By: #### L 100.0100, L500.2500 ####[facility] [address] [place], [address] Chloride [Moles/Vol] 109 mmol/L High 98-107 [facility] Comment on above: Performed By: #### L 100.0100, L500.2500 ####[facility] [address] [place], [address] CO2 [Moles/Vol] 27.0 mmol/L Normal 21.0-32.0 [facility] Comment on above: Performed By: #### L 100.0100, L500.2500 ####[facility] [id number] [place], [address] Creatinine [Mass/Vol] 0.84 mg/dL Normal 0.70-1.30 [facility] Comment on above: Result Comment: The validity of the calculated GFR GFRAA in patients over70 years has not been determined. Clinical correlation isessential. Performed By: #### L 100.0100, L500.2500 ####[facility] [address] [place], [address] ECRCL 88.30 ml/min Normal [facility] Comment on above: Performed By: #### L 100.0100, L500.2500 ####[facility] [address] [place], [address] EST GFR - AA 114 mL/min Normal >60 [facility] Comment on above: Result Comment: Afri can Guamanian GFR Calc Performed By: #### L 100.0100, L500.2500 ####[facility] [address] [place], [address] GAP 2 Low 5-15 [facility] Comment on above: Performed By: #### L 100.0100, L500.2500 ####[facility] [address] [place], [address] GFR/1.73 sq M.predicted among non-blacks MDRD (S/P/Bld) [Vol rate/Area] 94 mL/min/{1.73_m2} Normal >60 [facility] Comment on above: Result Comment: Non- GFR Calc Performed By: #### L 100.0100, L500.2500 ####[facility] [address] [place], [address] Glucose [Mass/Vol] 92 mg/dL Normal 74-106 [facility] Comment on above: Performed By: #### L 100.0100, L500.2500 ####[facility] [address] [place], [address] Potassium [Moles/Vol] 3.6 mmol/L Normal 3.5-5.1 [facility] Comment on above: Performed By: #### L 100.0100, L500.2500 ####[facility] [address] [place], [address] Sodium [Moles/Vol] 138 mmol/L Normal 136-145 [facility] Comment on above: Performed By: #### L 100.0100, L500.2500 ####[facility] [address] [place], [address] Urea nitrogen [Mass/Vol] 20 mg/dL High 7-18 [facility] Comment on above: Performed By: #### L 100.0100, L500.2500 ####[facility] [address] [place], [address] CBC W/Diff, Automatedon 01-0 -2024 Absolute Lymph 0.95 X10 3/uL Normal 0.83-4.51 [facility] Comment on above: Performed By: #### L 100.0100, L500.2500 ####[facility] [address] [place], [address] Absolute Neut 5.5 X10 3/uL Normal 2.0-7.7 [facility] Comment on above: Performed By: #### L 100.0100, L500.2500 ####[facility] [address] [place], [address] Basophils/100 WBC (Bld) 0.6 % Normal 0-1 [facility] Comment on above: Performed By: #### L 100.0100, L500.2500 ####[facility] [address] [place], [address] Eosinophils/100 WBC (Bld) 2.8 % Normal 0-5 [facility] Comment on above: Performed By: #### L 100.0100, L500.2500 ####[facility] [address] [place], [address] Erythrocyte distribution width (RBC) [Ratio] 14.7 % High 11.6-14.6 [facility] Comment on above: Performed By: #### L 100.0100, L500.2500 ####[facility] [address] [place], [address] Hematocrit (Bld) [Volume fraction] 32.3 % Low 40-54 [facility] Comment on above: Performed By: #### L 100.0100, L500.2500 ####[facility] [address] [place], [address] Hemoglobin (Bld) [Mass/Vol] 10.1 g/dL Low 13.0-16.5 [facility] Comment on above: Performed By: #### L 100.0100, L500.2500 ####[facility] [address] [place], [address] IG% 0.400 Normal 0.0-0.9 [facility] Comment on above: Result Comment: IG% - Immature Granulocytes (promyelocytes, myelocytes andmetamyelocytes) > 1% indicates that a LEFT SHIFT is Present. Performed By: #### L 100.0100, L500.2500 ####[facility] [address] [place], [address] Lymphocytes/100 WBC (Bld) 13.2 % Low 19-41 [facility] Comment on above: Performed By: #### L 100.0100, L500.2500 ####[facility] [address] [place], [address] MCH (RBC) [Entitic mass] 27.4 pg Normal 27.0-32.0 [facility] Comment on above: Performed By: #### L 100.0100, L500.2500 ####[facility] [address] [place], [address] MCHC (RBC) [Mass/Vol] 31.3 g/dL Low 32-36 [facility] Comment on above: Performed By: #### L 100.0100, L500.2500 ####[facility] [address] [place], [address] MCV (RBC) [Entitic vol] 87.8 fL Normal 80-94 [facility] Comment on above: Performed By: #### L 100.0100, L500.2500 ####[facility] [address] [place], [address] Monocytes/100 WBC (Bld) 7.2 % Normal 0-10 [facility] Comment on above: Performed By: #### L 100.0100, L500.2500 ####[facility] [address] [place], [address] Neutrophils/100 WBC (Bld) 75.8 % High 47-70 [facility] Comment on above: Performed By: #### L 100.0100, L500.2500 ####[facility] [address] [place], [address] Nucleated RBC (Bld) [#/Vol] 0 10*3/uL Normal 0-5 [facility] Comment on above: Performed By: #### L 100.0100, L500.2500 ####[facility] [address] [place], [address] Platelet mean volume (Bld) [Entitic vol] 10.1 fL Normal 6.2-12.0 [facility] Comment on above: Performed By: #### L 100.0100, L500.2500 ####[facility] [address] [place], [address] Platelets (Bld) [#/Vol] 184 10*3/uL Normal 150-450 [facility] Comment on above: Performed By: #### L 100.0100, L500.2500 ####[facility] [address] [place], [address] RBC (Bld) [#/Vol] 3.68 10*6/uL Low 4.6-6.2 [facility] Comment on above: Performed By: #### L 100.0100, L500.2500 ####[facility] [address] [place], [address] RDW SD 47.8 fl High 35.1-43.9 [facility] Comment on above: Performed By: #### L 100.0100, L500.2500 ####[facility] [address] [place], [address] WBC (Bld) [#/Vol] 7.2 10*3/uL Normal 4.4-11.0 [facility] Comment on above: Performed By: #### L 100.0100, L500.2500 ####[facility] [address] [place], [address] Basic Metabolic Profile (BMP )on 03-14-2024 BUN/CRE 29.8 RATIO High 10-20 [facility] Comment on above: Performed By: #### L 500.2500, L100.0100 ####[facility] [address] [place], [address] CA,Total 8.9 mg/dL Normal 8.5-10.1 [facility] Comment on above: Performed By: #### L 500.2500, L100.0100 ####[facility] [address] [place], [address] Chloride [Moles/Vol] 109 mmol/L High 98-107 [facility] Comment on above: Performed By: #### L 500.2500, L100.0100 ####[facility] [address] [place], [address] CO2 [Moles/Vol] 25.0 mmol/L Normal 21.0-32.0 [facility] Comment on above: Performed By: #### L 500.2500, L100.0100 ####[facility] [address] [place], [address] Creatinine [Mass/Vol] 0.84 mg/dL Normal 0.70-1.30 [facility] Comment on above: Result Comment: The validity of the calculated GFR GFRAA in patients over70 years has not been determined. Clinical correlation isessential. Performed By: #### L 500.2500, L100.0100 ####[facility] [address] [place], [address] ECRCL 88.98 ml/min Normal [facility] Comment on above: Performed By: #### L 500.2500, L100.0100 ####[facility] [address] [place], [address] EST GFR - AA 114 mL/min Normal >60 [facility] Comment on above: Result Comment: Afri can Guamanian GFR Calc Performed By: #### L 500.2500, L100.0100 ####[facility] [address] [place], [address] GAP 4 Low 5-15 [facility] Comment on above: Performed By: #### L 500.2500, L100.0100 ####[facility] [address] [place], [address] GFR/1.73 sq M.predicted among non-blacks MDRD (S/P/Bld) [Vol rate/Area] 94 mL/min/{1.73_m2} Normal >60 [facility] Comment on above: Result Comment: Non- GFR Calc Performed By: #### L 500.2500, L100.0100 ####[facility] [address] [place], [address] Glucose [Mass/Vol] 94 mg/dL Normal 74-106 [facility] Comment on above: Performed By: #### L 500.2500, L100.0100 ####[facility] [address] [place], [address] Potassium [Moles/Vol] 3.6 mmol/L Normal 3.5-5.1 [facility] Comment on above: Performed By: #### L 500.2500, L100.0100 ####[facility] [address] [place], [address] Sodium [Moles/Vol] 138 mmol/L Normal 136-145 [facility] Comment on above: Performed By: #### L 500.2500, L100.0100 ####[facility] [address] [place], [address] Urea nitrogen [Mass/Vol] 25 mg/dL High 7-18 [facility] Comment on above: Performed By: #### L 500.2500, L100.0100 ####[facility] [address] [place], [address] CBC W/Diff, Automatedon 12-3 Absolute Lymph 1.06 X10 3/uL Normal 0.83-4.51 [facility] Comment on above: Performed By: #### L 500.2500, L100.0100 ####[facility] [address] [place], [address] Absolute Neut 5.6 X10 3/uL Normal 2.0-7.7 [facility] Comment on above: Performed By: #### L 500.2500, L100.0100 ####[facility] [address] [place], [address] Basophils/100 WBC (Bld) 0.4 % Normal 0-1 [facility] Comment on above: Performed By: #### L 500.2500, L100.0100 ####[facility] [address] [place], [address] Eosinophils/100 WBC (Bld) 3.2 % Normal 0-5 [facility] Comment on above: Performed By: #### L 500.2500, L100.0100 ####[facility] [address] [place], [address] Erythrocyte distribution width (RBC) [Ratio] 14.6 % Normal 11.6-14.6 [facility] Comment on above: Performed By: #### L 500.2500, L100.0100 ####[facility] [address] [place], [address] Hematocrit (Bld) [Volume fraction] 32.2 % Low 40-54 [facility] Comment on above: Performed By: #### L 500.2500, L100.0100 ####[facility] [address] [place], [address] Hemoglobin (Bld) [Mass/Vol] 10.2 g/dL Low 13.0-16.5 [facility] Comment on above: Performed By: #### L 500.2500, L100.0100 ####[facility] [address] [place], [address] IG% 0.300 Normal 0.0-0.9 [facility] Comment on above: Result Comment: IG% - Immature Granulocytes (promyelocytes, myelocytes andmetamyelocytes) > 1% indicates that a LEFT SHIFT is Present. Performed By: #### L 500.2500, L100.0100 ####[facility] [address] [place], [address] Lymphocytes/100 WBC (Bld) 14.1 % Low 19-41 [facility] Comment on above: Performed By: #### L 500.2500, L100.0100 ####[facility] [address] [place], [address] MCH (RBC) [Entitic mass] 27.8 pg Normal 27.0-32.0 [facility] Comment on above: Performed By: #### L 500.2500, L100.0100 ####[facility] [address] [place], [address] MCHC (RBC) [Mass/Vol] 31.7 g/dL Low 32-36 [facility] Comment on above: Performed By: #### L 500.2500, L100.0100 ####[facility] [address] [place], [address] MCV (RBC) [Entitic vol] 87.7 fL Normal 80-94 [facility] Comment on above: Performed By: #### L 500.2500, L100.0100 ####[facility] [address] [place], [address] Monocytes/100 WBC (Bld) 7.0 % Normal 0-10 [facility] Comment on above: Performed By: #### L 500.2500, L100.0100 ####[facility] [address] [place], [address] Neutrophils/100 WBC (Bld) 75.0 % High 47-70 [facility] Comment on above: Performed By: #### L 500.2500, L100.0100 ####[facility] [address] [place], [address] Nucleated RBC (Bld) [#/Vol] 0 10*3/uL Normal 0-5 [facility] Comment on above: Performed By: #### L 500.2500, L100.0100 ####[facility] [address] [place], [address] Platelet mean volume (Bld) [Entitic vol] 10.2 fL Normal 6.2-12.0 [facility] Comment on above: Performed By: #### L 500.2500, L100.0100 ####[facility] [address] [place], [address] Platelets (Bld) [#/Vol] 168 10*3/uL Normal 150-450 [facility] Comment on above: Performed By: #### L 500.2500, L100.0100 ####[facility] [address] [place], [address] RBC (Bld) [#/Vol] 3.67 10*6/uL Low 4.6-6.2 [facility] Comment on above: Performed By: #### L 500.2500, L100.0100 ####[facility] [address] [place], [address] RDW SD 47.1 fl High 35.1-43.9 [facility] Comment on above: Performed By: #### L 500.2500, L100.0100 ####[facility] [address] [place], [address] WBC (Bld) [#/Vol] 7.5 10*3/uL Normal 4.4-11.0 [facility] Comment on above: Performed By: #### L 500.2500, L100.0100 ####[facility] [address] [place], [address] Basic Metabolic Profile (BMP )on 03-07-2024 BUN/CRE 21.4 RATIO High 10-20 [facility] Comment on above: Performed By: #### L 500.2500, L100.0100 ####[facility] [address] [place], [address] CA,Total 8.8 mg/dL Normal 8.5-10.1 [facility] Comment on above: Performed By: #### L 500.2500, L100.0100 ####[facility] [address] [place], [address] Chloride [Moles/Vol] 109 mmol/L High 98-107 [facility] Comment on above: Performed By: #### L 500.2500, L100.0100 ####[facility] [address] [place], [address] CO2 [Moles/Vol] 25.0 mmol/L Normal 21.0-32.0 [facility] Comment on above: Performed By: #### L 500.2500, L100.0100 ####[facility] [address] [place], [address] Creatinine [Mass/Vol] 0.89 mg/dL Normal 0.70-1.30 [facility] Comment on above: Result Comment: The validity of the calculated GFR GFRAA in patients over70 years has not been determined. Clinical correlation isessential. Performed By: #### L 500.2500, L100.0100 ####[facility] [address] [place], [address] ECRCL 83.98 ml/min Normal [facility] Comment on above: Performed By: #### L 500.2500, L100.0100 ####[facility] [address] [place], [address] EST GFR - AA 107 mL/min Normal >60 [facility] Comment on above: Result Comment: Afri can Guamanian GFR Calc Performed By: #### L 500.2500, L100.0100 ####[facility] [address] [place], [address] GAP 5 Normal 5-15 [facility] Comment on above: Performed By: #### L 500.2500, L100.0100 ####[facility] [address] [place], [address] GFR/1.73 sq M.predicted among non-blacks MDRD (S/P/Bld) [Vol rate/Area] 88 mL/min/{1.73_m2} Normal >60 [facility] Comment on above: Result Comment: Non- GFR Calc Performed By: #### L 500.2500, L100.0100 ####[facility] [address] [place], [address] Glucose [Mass/Vol] 91 mg/dL Normal 74-106 [facility] Comment on above: Performed By: #### L 500.2500, L100.0100 ####[facility] [address] [place], [address] Potassium [Moles/Vol] 3.8 mmol/L Normal 3.5-5.1 [facility] Comment on above: Performed By: #### L 500.2500, L100.0100 ####[facility] [address] [place], [address] Sodium [Moles/Vol] 139 mmol/L Normal 136-145 [facility] Comment on above: Performed By: #### L 500.2500, L100.0100 ####[facility] [address] [place], [address] Urea nitrogen [Mass/Vol] 19 mg/dL High 7-18 [facility] Comment on above: Performed By: #### L 500.2500, L100.0100 ####[facility] [address] [place], [address] CBC W/Diff, Automatedon 12-2 Absolute Lymph 0.97 X10 3/uL Normal 0.83-4.51 [facility] Comment on above: Performed By: #### L 500.2500, L100.0100 ####[facility] [address] [place], [address] Absolute Neut 4.0 X10 3/uL Normal 2.0-7.7 [facility] Comment on above: Performed By: #### L 500.2500, L100.0100 ####[facility] [address] [place], [address] Basophils/100 WBC (Bld) 0.7 % Normal 0-1 [facility] Comment on above: Performed By: #### L 500.2500, L100.0100 ####[facility] [address] [place], [address] Eosinophils/100 WBC (Bld) 2.6 % Normal 0-5 [facility] Comment on above: Performed By: #### L 500.2500, L100.0100 ####[facility] [address] [place], [address] Erythrocyte distribution width (RBC) [Ratio] 14.3 % Normal 11.6-14.6 [facility] Comment on above: Performed By: #### L 500.2500, L100.0100 ####[facility] [address] [place], [address] Hematocrit (Bld) [Volume fraction] 33.3 % Low 40-54 [facility] Comment on above: Performed By: #### L 500.2500, L100.0100 ####[facility] [address] [place], [address] Hemoglobin (Bld) [Mass/Vol] 10.8 g/dL Low 13.0-16.5 [facility] Comment on above: Performed By: #### L 500.2500, L100.0100 ####[facility] [address] [place], [address] IG% 0.500 Normal 0.0-0.9 [facility] Comment on above: Result Comment: IG% - Immature Granulocytes (promyelocytes, myelocytes andmetamyelocytes) > 1% indicates that a LEFT SHIFT is Present. Performed By: #### L 500.2500, L100.0100 ####[facility] [address] [place], [address] Lymphocytes/100 WBC (Bld) 16.9 % Low 19-41 [facility] Comment on above: Performed By: #### L 500.2500, L100.0100 ####[facility] [address] [place], [address] MCH (RBC) [Entitic mass] 28.8 pg Normal 27.0-32.0 [facility] Comment on above: Performed By: #### L 500.2500, L100.0100 ####[facility] [address] [place], [address] MCHC (RBC) [Mass/Vol] 32.4 g/dL Normal 32-36 [facility] Comment on above: Performed By: #### L 500.2500, L100.0100 ####[facility] [address] [place], [address] MCV (RBC) [Entitic vol] 88.8 fL Normal 80-94 [facility] Comment on above: Performed By: #### L 500.2500, L100.0100 ####[facility] [address] [place], [address] Monocytes/100 WBC (Bld) 9.9 % Normal 0-10 [facility] Comment on above: Performed By: #### L 500.2500, L100.0100 ####[facility] [address] [place], [address] Neutrophils/100 WBC (Bld) 69.4 % Normal 47-70 [facility] Comment on above: Performed By: #### L 500.2500, L100.0100 ####[facility] [address] [place], [address] Nucleated RBC (Bld) [#/Vol] 0 10*3/uL Normal 0-5 [facility] Comment on above: Performed By: #### L 500.2500, L100.0100 ####[facility] [address] [place], [address] Platelet mean volume (Bld) [Entitic vol] 10.5 fL Normal 6.2-12.0 [facility] Comment on above: Performed By: #### L 500.2500, L100.0100 ####[facility] [address] [place], [address] Platelets (Bld) [#/Vol] 200 10*3/uL Normal 150-450 [facility] Comment on above: Performed By: #### L 500.2500, L100.0100 ####[facility] [address] [place], [address] RBC (Bld) [#/Vol] 3.75 10*6/uL Low 4.6-6.2 [facility] Comment on above: Performed By: #### L 500.2500, L100.0100 ####[facility] [address] [place], [address] RDW SD 46.1 fl High 35.1-43.9 [facility] Comment on above: Performed By: #### L 500.2500, L100.0100 ####[facility] [address] [place], [address] WBC (Bld) [#/Vol] 5.7 10*3/uL Normal 4.4-11.0 [facility] Comment on above: Performed By: #### L 500.2500, L100.0100 ####[facility] [address] [place], [address] COVID 19 AG RAPID (PRUDENICO Herman)on 03-06-2024 SARS-CoV-2 (COVID-19) RNA ALEXYS+probe Ql (Unsp spec) SARS-CoV-2 (COVID 19) Negative RAPID METHOD BinaxNow COVID19 Ag Card Normal [facility] Comment on above: Performed By: #### M 100.505 ####[facility] [address] [place], [address] Urine Cultureon 03-06-2024 URC Normal [facility] Comment on above: Performed By: #### M 100.2200, L400.0001 ####[facility] [address] [place], [address] Urinalysis, Completeon 03-03 BACTERIA 2+ /hpf Normal None Seen [facility] Comment on above: Order Comment: AILIN TER SPECIMEN Performed By: #### M 100.2200, L400.0001 ####[facility] [address] [place], [address] CAST,WBC 0-5 SEEN Normal None Seen [facility] Comment on above: Order Comment: AILIN TER SPECIMEN Performed By: #### M 100.2200, L400.0001 ####[facility] [address] [place], [address] Mucus Ql (Urine sed) 1+ /hpf Normal [facility] Comment on above: Order Comment: AILIN TER SPECIMEN Performed By: #### M 100.2200, L400.0001 ####[facility] [address] [place], [address] RBC 5-10 SEEN Normal 0-5 [facility] Comment on above: Order Comment: AILIN TER SPECIMEN Performed By: #### M 100.2200, L400.0001 ####[facility] [address] [place], [address] WBC 50-100 SEEN Normal 0-5 [facility] Comment on above: Order Comment: AILIN TER SPECIMEN Performed By: #### M 100.2200, L400.0001 ####[facility] [address] [place], [address] EPI,SQUAMOUS 0 SEEN Normal 0-5 [facility] Comment on above: Order Comment: AILIN TER SPECIMEN Performed By: #### M 100.2200, L400.0001 ####[facility] [address] [place], [address] Vitamin D,25 Hydroxyon 03-02 Vitamin D 25-OH 53.5 ng/mL Normal [facility] Comment on above: Result Comment: Lenore min D 25(OH) Status Range Deficiency <20 ng/mL (50nmol/L) Insufficiency 20 - 30 ng/mL (50 - 75 nmol/L) Sufficiency 30 - 100 ng/mL (75 - 250 nmol/L) Toxicity >100 ng/mL (>250 nmol/L) Performed By: #### L 506.1000 ####[facility] [address] [place], [address] Basic Metabolic Profile (BMP )on 02-29-2024 BUN/CRE 24.4 RATIO High 10-20 [facility] Comment on above: Performed By: #### L 500.2500, L100.0100 ####[facility] [address] [place], [address] CA,Total 9.0 mg/dL Normal 8.5-10.1 [facility] Comment on above: Performed By: #### L 500.2500, L100.0100 ####[facility] [address] [place], [address] Chloride [Moles/Vol] 111 mmol/L High 98-107 [facility] Comment on above: Performed By: #### L 500.2500, L100.0100 ####[facility] [address] [place], [address] CO2 [Moles/Vol] 26.0 mmol/L Normal 21.0-32.0 [facility] Comment on above: Performed By: #### L 500.2500, L100.0100 ####[facility] [address] [place], [address] Creatinine [Mass/Vol] 0.82 mg/dL Normal 0.70-1.30 [facility] Comment on above: Result Comment: The validity of the calculated GFR GFRAA in patients over70 years has not been determined. Clinical correlation isessential. Performed By: #### L 500.2500, L100.0100 ####[facility] [address] [place], [address] ECRCL 91.05 ml/min Normal [facility] Comment on above: Performed By: #### L 500.2500, L100.0100 ####[facility] [address] [place], [address] EST GFR - AA 117 mL/min Normal >60 [facility] Comment on above: Result Comment: Afri can Guamanian GFR Calc Performed By: #### L 500.2500, L100.0100 ####[facility] [address] [place], [address] GAP 4 Low 5-15 [facility] Comment on above: Performed By: #### L 500.2500, L100.0100 ####[facility] [address] [place], [address] GFR/1.73 sq M.predicted among non-blacks MDRD (S/P/Bld) [Vol rate/Area] 97 mL/min/{1.73_m2} Normal >60 [facility] Comment on above: Result Comment: Non- GFR Calc Performed By: #### L 500.2500, L100.0100 ####[facility] [address] [place], [address] Glucose [Mass/Vol] 90 mg/dL Normal 74-106 [facility] Comment on above: Performed By: #### L 500.2500, L100.0100 ####[facility] [address] [place], [address] Potassium [Moles/Vol] 3.9 mmol/L Normal 3.5-5.1 [facility] Comment on above: Performed By: #### L 500.2500, L100.0100 ####[facility] [address] [place], [address] Sodium [Moles/Vol] 140 mmol/L Normal 136-145 [facility] Comment on above: Performed By: #### L 500.2500, L100.0100 ####[facility] [address] [place], [address] Urea nitrogen [Mass/Vol] 20 mg/dL High 7-18 [facility] Comment on above: Performed By: #### L 500.2500, L100.0100 ####[facility] [address] [place], [address] CBC W/Diff, Automatedon 12-1 Absolute Lymph 0.98 X10 3/uL Normal 0.83-4.51 [facility] Comment on above: Performed By: #### L 500.2500, L100.0100 ####[facility] [address] [place], [address] Absolute Neut 4.0 X10 3/uL Normal 2.0-7.7 [facility] Comment on above: Performed By: #### L 500.2500, L100.0100 ####[facility] [address] [place], [address] Basophils/100 WBC (Bld) 0.5 % Normal 0-1 [facility] Comment on above: Performed By: #### L 500.2500, L100.0100 ####[facility] [address] [place], [address] Eosinophils/100 WBC (Bld) 2.6 % Normal 0-5 [facility] Comment on above: Performed By: #### L 500.2500, L100.0100 ####[facility] [address] [place], [address] Erythrocyte distribution width (RBC) [Ratio] 14.6 % Normal 11.6-14.6 [facility] Comment on above: Performed By: #### L 500.2500, L100.0100 ####[facility] [address] [place], [address] Hematocrit (Bld) [Volume fraction] 35.0 % Low 40-54 [facility] Comment on above: Performed By: #### L 500.2500, L100.0100 ####[facility] [address] [place], [address] Hemoglobin (Bld) [Mass/Vol] 11.1 g/dL Low 13.0-16.5 [facility] Comment on above: Performed By: #### L 500.2500, L100.0100 ####[facility] [address] [place], [address] IG% 0.300 Normal 0.0-0.9 [facility] Comment on above: Result Comment: IG% - Immature Granulocytes (promyelocytes, myelocytes andmetamyelocytes) > 1% indicates that a LEFT SHIFT is Present. Performed By: #### L 500.2500, L100.0100 ####[facility] [address] [place], [address] Lymphocytes/100 WBC (Bld) 17.0 % Low 19-41 [facility] Comment on above: Performed By: #### L 500.2500, L100.0100 ####[facility] [address] [place], [address] MCH (RBC) [Entitic mass] 28.2 pg Normal 27.0-32.0 [facility] Comment on above: Performed By: #### L 500.2500, L100.0100 ####[facility] [address] [place], [address] MCHC (RBC) [Mass/Vol] 31.7 g/dL Low 32-36 [facility] Comment on above: Performed By: #### L 500.2500, L100.0100 ####[facility] [address] [place], [address] MCV (RBC) [Entitic vol] 89.1 fL Normal 80-94 [facility] Comment on above: Performed By: #### L 500.2500, L100.0100 ####[facility] [address] [place], [address] Monocytes/100 WBC (Bld) 9.2 % Normal 0-10 [facility] Comment on above: Performed By: #### L 500.2500, L100.0100 ####[facility] [address] [place], [address] Neutrophils/100 WBC (Bld) 70.4 % High 47-70 [facility] Comment on above: Performed By: #### L 500.2500, L100.0100 ####[facility] [address] [place], [address] Nucleated RBC (Bld) [#/Vol] 0 10*3/uL Normal 0-5 [facility] Comment on above: Performed By: #### L 500.2500, L100.0100 ####[facility] [address] [place], [address] Platelet mean volume (Bld) [Entitic vol] 10.0 fL Normal 6.2-12.0 [facility] Comment on above: Performed By: #### L 500.2500, L100.0100 ####[facility] [address] [place], [address] Platelets (Bld) [#/Vol] 212 10*3/uL Normal 150-450 [facility] Comment on above: Performed By: #### L 500.2500, L100.0100 ####[facility] [address] [place], [address] RBC (Bld) [#/Vol] 3.93 10*6/uL Low 4.6-6.2 [facility] Comment on above: Performed By: #### L 500.2500, L100.0100 ####[facility] [address] [place], [address] RDW SD 47.1 fl High 35.1-43.9 [facility] Comment on above: Performed By: #### L 500.2500, L100.0100 ####[facility] [address] [place], [address] WBC (Bld) [#/Vol] 5.8 10*3/uL Normal 4.4-11.0 [facility] Comment on above: Performed By: #### L 500.2500, L100.0100 ####[facility] [address] [place], [address] Basic Metabolic Profile (BMP )on 02-28-2024 BUN Normal 7-18 [facility] Comment on above: Result Comment: Santino martinez via OM: Ordered Performed By: #### L 100.0500, L500.2500 ####[facility] [address] [place], [address] BUN/CRE Normal 10-20 [facility] Comment on above: Result Comment: Canc elled via OM: MD Ordered Performed By: #### L 100.0500, L500.2500 ####[facility] [address] [place], [address] CA,Total Normal 8.5-10.1 [facility] Comment on above: Result Comment: Canc elled via OM: MD Ordered Performed By: #### L 100.0500, L500.2500 ####[facility] [address] [place], [address] CL Normal 98-107 [facility] Comment on above: Result Comment: Canc elled via OM: MD Ordered Performed By: #### L 100.0500, L500.2500 ####[facility] [address] [place], [address] CO2 Normal 21.0-32.0 [facility] Comment on above: Result Comment: Canc elled via OM: MD Ordered Performed By: #### L 100.0500, L500.2500 ####[facility] [address] [place], [address] CREAT,SERUM Normal 0.70-1.30 [facility] Comment on above: Result Comment: Canc elled via OM: MD Ordered Performed By: #### L 100.0500, L500.2500 ####[facility] [address] [place], [address] EST GFR Normal >60 [facility] Comment on above: Result Comment: Canc elled via OM: MD Ordered Performed By: #### L 100.0500, L500.2500 ####[facility] [address] [place], [address] EST GFR - AA Normal >60 [facility] Comment on above: Result Comment: Canc elled via OM: MD Ordered Performed By: #### L 100.0500, L500.2500 ####[facility] [address] [place], [address] GAP Normal 5-15 [facility] Comment on above: Result Comment: Canc elled via OM: MD Ordered Performed By: #### L 100.0500, L500.2500 ####[facility] [address] [place], [address] GLU Normal 74-106 [facility] Comment on above: Result Comment: Canc elled via OM: MD Ordered Performed By: #### L 100.0500, L500.2500 ####[facility] [address] [place], [address] Potassium Normal 3.5-5.1 [facility] Comment on above: Result Comment: Canc elled via OM: MD Ordered Performed By: #### L 100.0500, L500.2500 ####[facility] [address] [place], [address] Basic Metabolic Profile (BMP) Normal 136-145 [facility] Comment on above: Result Comment: Canc elled via OM: MD Ordered Performed By: #### L 100.0500, L500.2500 ####[facility] [address] [place], [address] CBC-Complete Blood Cnt No Di ffon 02-28-2024 HCT Normal 40-54 [facility] Comment on above: Result Comment: Canc elled via OM: MD Ordered Performed By: #### L 100.0500, L500.2500 ####[facility] [address] [place], [address] HGB Normal 13.0-16.5 [facility] Comment on above: Result Comment: Canc elled via OM: MD Ordered Performed By: #### L 100.0500, L500.2500 ####[facility] [address] [place], [address] MCH Normal 27.0-32.0 [facility] Comment on above: Result Comment: Canc elled via OM: MD Ordered Performed By: #### L 100.0500, L500.2500 ####[facility] [address] [place], [address] MCHC Normal 32-36 [facility] Comment on above: Result Comment: Canc elled via OM: MD Ordered Performed By: #### L 100.0500, L500.2500 ####[facility] [address] [place], [address] MCV Normal 80-94 [facility] Comment on above: Result Comment: Canc elled via OM: MD Ordered Performed By: #### L 100.0500, L500.2500 ####[facility] [address] [place], [address] PLT Normal 150-450 [facility] Comment on above: Result Comment: Canc elled via OM: MD Ordered Performed By: #### L 100.0500, L500.2500 ####[facility] [address] [place], [address] RBC Normal 4.6-6.2 [facility] Comment on above: Result Comment: Canc elled via OM: MD Ordered Performed By: #### L 100.0500, L500.2500 ####[facility] [address] [place], [address] RDW CV Normal 11.6-14.6 [facility] Comment on above: Result Comment: Canc elled via OM: MD Ordered Performed By: #### L 100.0500, L500.2500 ####[facility] [address] [place], [address] RDW SD Normal 35.1-43.9 [facility] Comment on above: Result Comment: Canc elled via OM: MD Ordered Performed By: #### L 100.0500, L500.2500 ####[facility] [address] [place], [address] WBC Normal 4.4-11.0 [facility] Comment on above: Result Comment: Santino martinez via OM: Ordered Performed By: #### L 100.0500, L500.2500 ####[facility] [address] [place], [address] Culture, Blood (WB)on 2023 CUB Blood cultures x2 fr om two different sites No growth in 5 days. Normal [facility] Comment on above: Performed By: #### M 200.1000 ####[facility] [address] [place], [address] Culture, Blood (WB)on 2023 CUB Blood cultures x2, f rom two different sites No growth in 5 days. Normal [facility] Comment on above: Performed By: #### M 200.1000 ####[facility] [address] [place], [address] Basic Metabolic Profile (BMP )on 02-26-2024 BUN/CRE 22.4 RATIO High 10-20 [facility] Comment on above: Performed By: #### L 500.2500, L100.0100 ####[facility] [address] [place], [address] CA,Total 8.7 mg/dL Normal 8.5-10.1 [facility] Comment on above: Performed By: #### L 500.2500, L100.0100 ####[facility] [address] [place], [address] Chloride [Moles/Vol] 112 mmol/L High 98-107 [facility] Comment on above: Performed By: #### L 500.2500, L100.0100 ####[facility] [address] [place], [address] CO2 [Moles/Vol] 24.0 mmol/L Normal 21.0-32.0 [facility] Comment on above: Performed By: #### L 500.2500, L100.0100 ####[facility] [address] [place], [address] Creatinine [Mass/Vol] 0.85 mg/dL Normal 0.70-1.30 [facility] Comment on above: Result Comment: The validity of the calculated GFR GFRAA in patients over70 years has not been determined. Clinical correlation isessential. Performed By: #### L 500.2500, L100.0100 ####[facility] [address] [place], [address] ECRCL 89.41 ml/min Normal [facility] Comment on above: Performed By: #### L 500.2500, L100.0100 ####[facility] [address] [place], [address] EST GFR - AA 112 mL/min Normal >60 [facility] Comment on above: Result Comment: Afri can Guamanian GFR Calc Performed By: #### L 500.2500, L100.0100 ####[facility] [address] [place], [address] GAP 4 Low 5-15 [facility] Comment on above: Performed By: #### L 500.2500, L100.0100 ####[facility] [address] [place], [address] GFR/1.73 sq M.predicted among non-blacks MDRD (S/P/Bld) [Vol rate/Area] 93 mL/min/{1.73_m2} Normal >60 [facility] Comment on above: Result Comment: Non- GFR Calc Performed By: #### L 500.2500, L100.0100 ####[facility] [address] [place], [address] Glucose [Mass/Vol] 94 mg/dL Normal 74-106 [facility] Comment on above: Performed By: #### L 500.2500, L100.0100 ####[facility] [address] [place], [address] Potassium [Moles/Vol] 3.8 mmol/L Normal 3.5-5.1 [facility] Comment on above: Performed By: #### L 500.2500, L100.0100 ####[facility] [address] [place], [address] Sodium [Moles/Vol] 140 mmol/L Normal 136-145 [facility] Comment on above: Performed By: #### L 500.2500, L100.0100 ####[facility] [address] [place], [address] Urea nitrogen [Mass/Vol] 19 mg/dL High 7-18 [facility] Comment on above: Performed By: #### L 500.2500, L100.0100 ####[facility] [address] [place], [address] CBC W/Diff, Automatedon 12-03 18-2023 Absolute Lymph 1.05 X10 3/uL Normal 0.83-4.51 [facility] Comment on above: Performed By: #### L 500.2500, L100.0100 ####[facility] [address] [place], [address] Absolute Neut 3.4 X10 3/uL Normal 2.0-7.7 [facility] Comment on above: Performed By: #### L 500.2500, L100.0100 ####[facility] [address] [place], [address] Basophils/100 WBC (Bld) 0.8 % Normal 0-1 [facility] Comment on above: Performed By: #### L 500.2500, L100.0100 ####[facility] [address] [place], [address] Eosinophils/100 WBC (Bld) 2.4 % Normal 0-5 [facility] Comment on above: Performed By: #### L 500.2500, L100.0100 ####[facility] [address] [place], [address] Erythrocyte distribution width (RBC) [Ratio] 15.0 % High 11.6-14.6 [facility] Comment on above: Performed By: #### L 500.2500, L100.0100 ####[facility] [address] [place], [address] Hematocrit (Bld) [Volume fraction] 33.6 % Low 40-54 [facility] Comment on above: Performed By: #### L 500.2500, L100.0100 ####[facility] [address] [place], [address] Hemoglobin (Bld) [Mass/Vol] 10.7 g/dL Low 13.0-16.5 [facility] Comment on above: Performed By: #### L 500.2500, L100.0100 ####[facility] [address] [place], [address] IG% 0.400 Normal 0.0-0.9 [facility] Comment on above: Result Comment: IG% - Immature Granulocytes (promyelocytes, myelocytes andmetamyelocytes) > 1% indicates that a LEFT SHIFT is Present. Performed By: #### L 500.2500, L100.0100 ####[facility] [address] [place], [address] Lymphocytes/100 WBC (Bld) 20.6 % Normal 19-41 [facility] Comment on above: Performed By: #### L 500.2500, L100.0100 ####[facility] [address] [place], [address] MCH (RBC) [Entitic mass] 28.2 pg Normal 27.0-32.0 [facility] Comment on above: Performed By: #### L 500.2500, L100.0100 ####[facility] [address] [place], [address] MCHC (RBC) [Mass/Vol] 31.8 g/dL Low 32-36 [facility] Comment on above: Performed By: #### L 500.2500, L100.0100 ####[facility] [address] [place], [address] MCV (RBC) [Entitic vol] 88.7 fL Normal 80-94 [facility] Comment on above: Performed By: #### L 500.2500, L100.0100 ####[facility] [address] [place], [address] Monocytes/100 WBC (Bld) 8.6 % Normal 0-10 [facility] Comment on above: Performed By: #### L 500.2500, L100.0100 ####[facility] [address] [place], [address] Neutrophils/100 WBC (Bld) 67.2 % Normal 47-70 [facility] Comment on above: Performed By: #### L 500.2500, L100.0100 ####[facility] [address] [place], [address] Nucleated RBC (Bld) [#/Vol] 0 10*3/uL Normal 0-5 [facility] Comment on above: Performed By: #### L 500.2500, L100.0100 ####[facility] [address] [place], [address] Platelet mean volume (Bld) [Entitic vol] 10.0 fL Normal 6.2-12.0 [facility] Comment on above: Performed By: #### L 500.2500, L100.0100 ####[facility] [address] [place], [address] Platelets (Bld) [#/Vol] 217 10*3/uL Normal 150-450 [facility] Comment on above: Performed By: #### L 500.2500, L100.0100 ####[facility] [address] [place], [address] RBC (Bld) [#/Vol] 3.79 10*6/uL Low 4.6-6.2 [facility] Comment on above: Performed By: #### L 500.2500, L100.0100 ####[facility] [address] [place], [address] RDW SD 48.3 fl High 35.1-43.9 [facility] Comment on above: Performed By: #### L 500.2500, L100.0100 ####[facility] [address] [place], [address] WBC (Bld) [#/Vol] 5.1 10*3/uL Normal 4.4-11.0 [facility] Comment on above: Performed By: #### L 500.2500, L100.0100 ####[facility] [address] [place], [address] Urine Cultureon 02-26-2024 URC Normal [facility] Comment on above: Performed By: #### M 100.2200 ####[facility] [address] [place], [address] Basic Metabolic Profile (BMP )on 02-25-2024 BUN/CRE 23.2 RATIO High 10-20 [facility] Comment on above: Performed By: #### L 100.0100, L500.2500 ####[facility] [address] [place], [address] CA,Total 9.2 mg/dL Normal 8.5-10.1 [facility] Comment on above: Performed By: #### L 100.0100, L500.2500 ####[facility] [address] [place], [address] Chloride [Moles/Vol] 114 mmol/L High 98-107 [facility] Comment on above: Performed By: #### L 100.0100, L500.2500 ####[facility] [address] [place], [address] CO2 [Moles/Vol] 22.0 mmol/L Normal 21.0-32.0 [facility] Comment on above: Performed By: #### L 100.0100, L500.2500 ####[facility] [address] [place], [address] Creatinine [Mass/Vol] 0.91 mg/dL Normal 0.70-1.30 [facility] Comment on above: Result Comment: The validity of the calculated GFR GFRAA in patients over70 years has not been determined. Clinical correlation isessential. Performed By: #### L 100.0100, L500.2500 ####[facility] [address] [place], [address] ECRCL 83.52 ml/min Normal [facility] Comment on above: Performed By: #### L 100.0100, L500.2500 ####[facility] [address] [place], [address] EST GFR - AA 104 mL/min Normal >60 [facility] Comment on above: Result Comment: Afri can [place]amanian GFR Calc Performed By: #### L 100.0100, L500.2500 ####[facility] [address] [place], [address] GAP 5 Normal 5-15 [facility] Comment on above: Performed By: #### L 100.0100, L500.2500 ####[facility] [address] [place], [address] GFR/1.73 sq M.predicted among non-blacks MDRD (S/P/Bld) [Vol rate/Area] 86 mL/min/{1.73_m2} Normal >60 [facility] Comment on above: Result Comment: Non- GFR Calc Performed By: #### L 100.0100, L500.2500 ####[facility] [address] [place], [address] Glucose [Mass/Vol] 95 mg/dL Normal 74-106 [facility] Comment on above: Performed By: #### L 100.0100, L500.2500 ####[facility] [address] [place], [address] Potassium [Moles/Vol] 4.0 mmol/L Normal 3.5-5.1 [facility] Comment on above: Performed By: #### L 100.0100, L500.2500 ####[facility] [address] [place], [address] Sodium [Moles/Vol] 141 mmol/L Normal 136-145 [facility] Comment on above: Performed By: #### L 100.0100, L500.2500 ####[facility] [address] [place], [address] Urea nitrogen [Mass/Vol] 21 mg/dL High 7-18 [facility] Comment on above: Performed By: #### L 100.0100, L500.2500 ####[facility] [address] [place], [address] CBC W/Diff, Automatedon 12- Absolute Lymph 0.97 X10 3/uL Normal 0.83-4.51 [facility] Comment on above: Performed By: #### L 100.0100, L500.2500 ####[facility] [address], [address] Absolute Neut 4.3 X10 3/uL Normal 2.0-7.7 [facility] Comment on above: Performed By: #### L 100.0100, L500.2500 ####[facility] [address] [place], [address] Basophils/100 WBC (Bld) 0.9 % Normal 0-1 [facility] Comment on above: Performed By: #### L 100.0100, L500.2500 ####[facility] [address] [place], [address] Eosinophils/100 WBC (Bld) 1.7 % Normal 0-5 [facility] Comment on above: Performed By: #### L 100.0100, L500.2500 ####[facility] [address] [place], [address] Erythrocyte distribution width (RBC) [Ratio] 15.0 % High 11.6-14.6 [facility] Comment on above: Performed By: #### L 100.0100, L500.2500 ####[facility] [address] [place], [address] Hematocrit (Bld) [Volume fraction] 34.0 % Low 40-54 [facility] Comment on above: Performed By: #### L 100.0100, L500.2500 ####[facility] [address] [place], [address] Hemoglobin (Bld) [Mass/Vol] 11.0 g/dL Low 13.0-16.5 [facility] Comment on above: Performed By: #### L 100.0100, L500.2500 ####[facility] [address] [place], [address] IG% 0.500 Normal 0.0-0.9 [facility] Comment on above: Result Comment: IG% - Immature Granulocytes (promyelocytes, myelocytes andmetamyelocytes) > 1% indicates that a LEFT SHIFT is Present. Performed By: #### L 100.0100, L500.2500 ####[facility] [address] [place], [address] Lymphocytes/100 WBC (Bld) 16.6 % Low 19-41 [facility] Comment on above: Performed By: #### L 100.0100, L500.2500 ####[facility] [address] [place], [address] MCH (RBC) [Entitic mass] 28.7 pg Normal 27.0-32.0 [facility] Comment on above: Performed By: #### L 100.0100, L500.2500 ####[facility] [address] [place], [address] MCHC (RBC) [Mass/Vol] 32.4 g/dL Normal 32-36 [facility] Comment on above: Performed By: #### L 100.0100, L500.2500 ####[facility] [address] [place], [address] MCV (RBC) [Entitic vol] 88.8 fL Normal 80-94 [facility] Comment on above: Performed By: #### L 100.0100, L500.2500 ####[facility] [address] [place], [address] Monocytes/100 WBC (Bld) 6.2 % Normal 0-10 [facility] Comment on above: Performed By: #### L 100.0100, L500.2500 ####[facility] [address] [place], [address] Neutrophils/100 WBC (Bld) 74.1 % High 47-70 [facility] Comment on above: Performed By: #### L 100.0100, L500.2500 ####[facility] [address] [place], [address] Nucleated RBC (Bld) [#/Vol] 0 10*3/uL Normal 0-5 [facility] Comment on above: Performed By: #### L 100.0100, L500.2500 ####[facility] [address] [place], [address] Platelet mean volume (Bld) [Entitic vol] 9.8 fL Normal 6.2-12.0 [facility] Comment on above: Performed By: #### L 100.0100, L500.2500 ####[facility] [address] [place], [address] Platelets (Bld) [#/Vol] 208 10*3/uL Normal 150-450 [facility] Comment on above: Performed By: #### L 100.0100, L500.2500 ####[facility] [address] [place], [address] RBC (Bld) [#/Vol] 3.83 10*6/uL Low 4.6-6.2 [facility] Comment on above: Performed By: #### L 100.0100, L500.2500 ####[facility] [address] [place], [address] RDW SD 49.0 fl High 35.1-43.9 [facility] Comment on above: Performed By: #### L 100.0100, L500.2500 ####[facility] [address] [place], [address] WBC (Bld) [#/Vol] 5.8 10*3/uL Normal 4.4-11.0 [facility] Comment on above: Performed By: #### L 100.0100, L500.2500 ####[facility] [address] [place], [address] Basic Metabolic Profile (BMP )on 02-24-2024 BUN/CRE 24.9 RATIO High 10-20 [facility] Comment on above: Performed By: #### L 100.0100, L500.2500 ####[facility] [address] [place], [address] CA,Total 8.7 mg/dL Normal 8.5-10.1 [facility] Comment on above: Performed By: #### L 100.0100, L500.2500 ####[facility] [address] [place], [address] Chloride [Moles/Vol] 115 mmol/L High 98-107 [facility] Comment on above: Performed By: #### L 100.0100, L500.2500 ####[facility] [address] [place], [address] CO2 [Moles/Vol] 22.0 mmol/L Normal 21.0-32.0 [facility] Comment on above: Performed By: #### L 100.0100, L500.2500 ####[facility] [address] [place], [address] Creatinine [Mass/Vol] 0.84 mg/dL Normal 0.70-1.30 [facility] Comment on above: Result Comment: The validity of the calculated GFR GFRAA in patients over70 years has not been determined. Clinical correlation isessential. Performed By: #### L 100.0100, L500.2500 ####[facility] [address] [place], [address] ECRCL 89.85 ml/min Normal [facility] Comment on above: Performed By: #### L 100.0100, L500.2500 ####[facility] [address] [place], [address] EST GFR - AA 113 mL/min Normal >60 [facility] Comment on above: Result Comment: Afri can Guamanian GFR Calc Performed By: #### L 100.0100, L500.2500 ####[facility] [address] [place], [address] GAP 4 Low 5-15 [facility] Comment on above: Performed By: #### L 100.0100, L500.2500 ####[facility] [address] [place], [address] GFR/1.73 sq M.predicted among non-blacks MDRD (S/P/Bld) [Vol rate/Area] 94 mL/min/{1.73_m2} Normal >60 [facility] Comment on above: Result Comment: Non- GFR Calc Performed By: #### L 100.0100, L500.2500 ####[facility] [address] [place], [address] Glucose [Mass/Vol] 104 mg/dL Normal 74-106 [facility] Comment on above: Result Comment: Fast ing Glucose result from 100 to 125 mg/dLsuggests IMPAIRED HOMEOSTASIS per A.D.A. criteria. Performed By: #### L 100.0100, L500.2500 ####[facility] [address] [place], [address] Potassium [Moles/Vol] 3.7 mmol/L Normal 3.5-5.1 [facility] Comment on above: Performed By: #### L 100.0100, L500.2500 ####[facility] [address] [place], [address] Sodium [Moles/Vol] 141 mmol/L Normal 136-145 [facility] Comment on above: Performed By: #### L 100.0100, L500.2500 ####[facility] [address] [place], [address] Urea nitrogen [Mass/Vol] 21 mg/dL High 7-18 [facility] Comment on above: Performed By: #### L 100.0100, L500.2500 ####[facility] [address] [place], [address] CBC W/Diff, Automatedon 02-12 Absolute Lymph 1.01 X10 3/uL Normal 0.83-4.51 [facility] Comment on above: Performed By: #### L 100.0100, L500.2500 ####[facility] [address] [place], [address] Absolute Neut 3.9 X10 3/uL Normal 2.0-7.7 [facility] Comment on above: Performed By: #### L 100.0100, L500.2500 ####[facility] [address] [place], [address] Basophils/100 WBC (Bld) 0.7 % Normal 0-1 [facility] Comment on above: Performed By: #### L 100.0100, L500.2500 ####[facility] [address] [place], [address] Eosinophils/100 WBC (Bld) 2.0 % Normal 0-5 [facility] Comment on above: Performed By: #### L 100.0100, L500.2500 ####[facility] [address] [place], [address] Erythrocyte distribution width (RBC) [Ratio] 15.1 % High 11.6-14.6 [facility] Comment on above: Performed By: #### L 100.0100, L500.2500 ####[facility] [address] [place], [address] Hematocrit (Bld) [Volume fraction] 34.1 % Low 40-54 [facility] Comment on above: Performed By: #### L 100.0100, L500.2500 ####[facility] [address] [place], [address] Hemoglobin (Bld) [Mass/Vol] 10.9 g/dL Low 13.0-16.5 [facility] Comment on above: Performed By: #### L 100.0100, L500.2500 ####[facility] [address] [place], [address] IG% 0.600 Normal 0.0-0.9 [facility] Comment on above: Result Comment: IG% - Immature Granulocytes (promyelocytes, myelocytes andmetamyelocytes) > 1% indicates that a LEFT SHIFT is Present. Performed By: #### L 100.0100, L500.2500 ####[facility] [address] [place], [address] Lymphocytes/100 WBC (Bld) 18.5 % Low 19-41 [facility] Comment on above: Performed By: #### L 100.0100, L500.2500 ####[facility] [address] [place], [address] MCH (RBC) [Entitic mass] 28.8 pg Normal 27.0-32.0 [facility] Comment on above: Performed By: #### L 100.0100, L500.2500 ####[facility] [address] [place], [address] MCHC (RBC) [Mass/Vol] 32.0 g/dL Normal 32-36 [facility] Comment on above: Performed By: #### L 100.0100, L500.2500 ####[facility] [address] [place], [address] MCV (RBC) [Entitic vol] 90.0 fL Normal 80-94 [facility] Comment on above: Performed By: #### L 100.0100, L500.2500 ####[facility] [address] [place], [address] Monocytes/100 WBC (Bld) 6.4 % Normal 0-10 [facility] Comment on above: Performed By: #### L 100.0100, L500.2500 ####[facility] [address] [place], [address] Neutrophils/100 WBC (Bld) 71.8 % High 47-70 [facility] Comment on above: Performed By: #### L 100.0100, L500.2500 ####[facility] [address] [place], [address] Nucleated RBC (Bld) [#/Vol] 0 10*3/uL Normal 0-5 [facility] Comment on above: Performed By: #### L 100.0100, L500.2500 ####[facility] [address] [place], [address] Platelet mean volume (Bld) [Entitic vol] 9.7 fL Normal 6.2-12.0 [facility] Comment on above: Performed By: #### L 100.0100, L500.2500 ####[facility] [address] [place], [address] Platelets (Bld) [#/Vol] 202 10*3/uL Normal 150-450 [facility] Comment on above: Performed By: #### L 100.0100, L500.2500 ####[facility] [address] [place], [address] RBC (Bld) [#/Vol] 3.79 10*6/uL Low 4.6-6.2 [facility] Comment on above: Performed By: #### L 100.0100, L500.2500 ####[facility] [address] [place], [address] RDW SD 49.6 fl High 35.1-43.9 [facility] Comment on above: Performed By: #### L 100.0100, L500.2500 ####[facility] [address] [place], [address] WBC (Bld) [#/Vol] 5.5 10*3/uL Normal 4.4-11.0 [facility] Comment on above: Performed By: #### L 100.0100, L500.2500 ####[facility] [address] [place], [address] CBC W/Diff, Automatedon 12 Absolute Lymph 0.98 X10 3/uL Normal 0.83-4.51 [facility] Comment on above: Performed By: #### L 100.0100, L500.4050 ####[facility] [address] [place], [address] Absolute Neut 4.4 X10 3/uL Normal 2.0-7.7 [facility] Comment on above: Performed By: #### L 100.0100, L500.4050 ####[facility] [address] [place], [address] Basophils/100 WBC (Bld) 0.7 % Normal 0-1 [facility] Comment on above: Performed By: #### L 100.0100, L500.4050 ####[facility] [address] [place], [address] Eosinophils/100 WBC (Bld) 1.5 % Normal 0-5 [facility] Comment on above: Performed By: #### L 100.0100, L500.4050 ####[facility] [address] [place], [address] Erythrocyte distribution width (RBC) [Ratio] 14.7 % High 11.6-14.6 [facility] Comment on above: Performed By: #### L 100.0100, L500.4050 ####[facility] [address] [place], [address] Hematocrit (Bld) [Volume fraction] 33.4 % Low 40-54 [facility] Comment on above: Performed By: #### L 100.0100, L500.4050 ####[facility] [address] [place], [address] Hemoglobin (Bld) [Mass/Vol] 10.8 g/dL Low 13.0-16.5 [facility] Comment on above: Performed By: #### L 100.0100, L500.4050 ####[facility] [address] [place], [address] IG% 1.000 High 0.0-0.9 [facility] Comment on above: Result Comment: IG% - Immature Granulocytes (promyelocytes, myelocytes andmetamyelocytes) > 1% indicates that a LEFT SHIFT is Present. Performed By: #### L 100.0100, L500.4050 ####[facility] [address] [place], [address] Lymphocytes/100 WBC (Bld) 16.4 % Low 19-41 [facility] Comment on above: Performed By: #### L 100.0100, L500.4050 ####[facility] [address] [place], [address] MCH (RBC) [Entitic mass] 28.6 pg Normal 27.0-32.0 [facility] Comment on above: Performed By: #### L 100.0100, L500.4050 ####[facility] [address] [place], [address] MCHC (RBC) [Mass/Vol] 32.3 g/dL Normal 32-36 [facility] Comment on above: Performed By: #### L 100.0100, L500.4050 ####[facility] [address] [place], [address] MCV (RBC) [Entitic vol] 88.6 fL Normal 80-94 [facility] Comment on above: Performed By: #### L 100.0100, L500.4050 ####[facility] [address] [place], [address] Monocytes/100 WBC (Bld) 6.9 % Normal 0-10 [facility] Comment on above: Performed By: #### L 100.0100, L500.4050 ####[facility] [address] [place], [address] Neutrophils/100 WBC (Bld) 73.5 % High 47-70 [facility] Comment on above: Performed By: #### L 100.0100, L500.4050 ####[facility] [address] [place], [address] Nucleated RBC (Bld) [#/Vol] 0 10*3/uL Normal 0-5 [facility] Comment on above: Performed By: #### L 100.0100, L500.4050 ####[facility] [address] [place], [address] Platelet mean volume (Bld) [Entitic vol] 9.9 fL Normal 6.2-12.0 [facility] Comment on above: Performed By: #### L 100.0100, L500.4050 ####[facility] [address] [place], [address] Platelets (Bld) [#/Vol] 209 10*3/uL Normal 150-450 [facility] Comment on above: Performed By: #### L 100.0100, L500.4050 ####[facility] [address] [place], [address] RBC (Bld) [#/Vol] 3.77 10*6/uL Low 4.6-6.2 [facility] Comment on above: Performed By: #### L 100.0100, L500.4050 ####[facility] [address] [place], [address] RDW SD 47.8 fl High 35.1-43.9 [facility] Comment on above: Performed By: #### L 100.0100, L500.4050 ####[facility] [address] [place], [address] WBC (Bld) [#/Vol] 6.0 10*3/uL Normal 4.4-11.0 [facility] Comment on above: Performed By: #### L 100.0100, L500.4050 ####[facility] [address] [place], [address] CRPon 02-23-2024 C-REACTIVE PROT 95.80 mg/L High 0.0-3.0 [facility] Comment on above: Order Comment: Comme nts: May add to ED labs Result Comment: C-Re active Protein (CRP) provides useful information for thediagnosis, therapy and monitoring of inflammatory processesand associated diseases. For the evaluation of Relative Riskfor Cardiovascular Disease, a High Sensitivity CRP (HSCRP)should be ordered. Performed By: #### L 101.9900, L501.6710 ####[facility] [address] [place], [address] Comprehensive Metabolic Prof ilon 02-23-2024 Albumin [Mass/Vol] 2.9 g/dL Low 3.2-5.0 [facility] Comment on above: Performed By: #### L 100.0100, L500.4050 ####[facility] [address] [place], [address] Albumin/Globulin [Mass ratio] 0.8 {ratio} Low 0.9-2.4 [facility] Comment on above: Performed By: #### L 100.0100, L500.4050 ####[facility] [address] [place], [address] ALK P 48 U/L Normal 45-117 [facility] Comment on above: Performed By: #### L 100.0100, L500.4050 ####[facility] [address] [place], [address] ALT [Catalytic activity/Vol] 31 U/L Normal 16-61 [facility] Comment on above: Performed By: #### L 100.0100, L500.4050 ####[facility] [address] [place], [address] AST [Catalytic activity/Vol] 20 U/L Normal 15-37 [facility] Comment on above: Performed By: #### L 100.0100, L500.4050 ####[facility] [address] [place], [address] Bilirubin [Mass/Vol] 0.90 mg/dL Normal 0.20-1.00 [facility] Comment on above: Result Comment: For patients on eltrombopag therapy, use of Dimension Mar Lin TBIL is not recommended. Performed By: #### L 100.0100, L500.4050 ####[facility] [address] [place], [address] BUN/CRE 19.7 RATIO Normal 10-20 [facility] Comment on above: Performed By: #### L 100.0100, L500.4050 ####[facility] [address] [place], [address] CA,Total 8.6 mg/dL Normal 8.5-10.1 [facility] Comment on above: Performed By: #### L 100.0100, L500.4050 ####[facility] [address] [place], [address] Chloride [Moles/Vol] 114 mmol/L High 98-107 [facility] Comment on above: Performed By: #### L 100.0100, L500.4050 ####[facility] [address] [place], [address] CO2 [Moles/Vol] 23.0 mmol/L Normal 21.0-32.0 [facility] Comment on above: Performed By: #### L 100.0100, L500.4050 ####[facility] [address] [place], [address] Creatinine [Mass/Vol] 0.81 mg/dL Normal 0.70-1.30 [facility] Comment on above: Result Comment: The validity of the calculated GFR GFRAA in patients over70 years has not been determined. Clinical correlation isessential. Performed By: #### L 100.0100, L500.4050 ####[facility] [address] [place], [address] ECRCL 92.86 ml/min Normal [facility] Comment on above: Performed By: #### L 100.0100, L500.4050 ####[facility] [address] [place], [address] EST GFR - AA 118 mL/min Normal >60 [facility] Comment on above: Result Comment: Afri can Guamanian GFR Calc Performed By: #### L 100.0100, L500.4050 ####[facility] [address] [place], [address] GAP 5 Normal 5-15 [facility] Comment on above: Performed By: #### L 100.0100, L500.4050 ####[facility] [address] [place], [address] GFR/1.73 sq M.predicted among non-blacks MDRD (S/P/Bld) [Vol rate/Area] 98 mL/min/{1.73_m2} Normal >60 [facility] Comment on above: Result Comment: Non- GFR Calc Performed By: #### L 100.0100, L500.4050 ####[facility] [address] [place], [address] Globulin (S) [Mass/Vol] 3.8 g/dL Normal 2.2-4.2 [facility] Comment on above: Performed By: #### L 100.0100, L500.4050 ####[facility] [address] [place], [address] Glucose [Mass/Vol] 96 mg/dL Normal 74-106 [facility] Comment on above: Performed By: #### L 100.0100, L500.4050 ####[facility] [address] [place], [address] Potassium [Moles/Vol] 3.3 mmol/L Low 3.5-5.1 [facility] Comment on above: Performed By: #### L 100.0100, L500.4050 ####[facility] [address] [place], [address] Sodium [Moles/Vol] 142 mmol/L Normal 136-145 [facility] Comment on above: Performed By: #### L 100.0100, L500.4050 ####[facility] [address] [place], [address] T PROT 6.7 g/dL Normal 6.4-8.2 [facility] Comment on above: Performed By: #### L 100.0100, L500.4050 ####[facility] [address] [place], [address] Urea nitrogen [Mass/Vol] 16 mg/dL Normal 7-18 [facility] Comment on above: Performed By: #### L 100.0100, L500.4050 ####[facility] [address] [place], [address] Consultation - Infectious Dx on 02-23-2024 Consultation - Infectious Dx Normal [facility] Erythrocyte Sed Rateon 02-22 SED RATE 45 mm/hr High 0-20 [facility] Comment on above: Performed By: #### L 101.9900, L501.6710 ####[facility] [address] [place], [address] RESPIRATORY PANEL MOLECULARo n 12-11-2024 RP PANEL Normal [facility] Comment on above: Performed By: #### M 100.638 ####[facility] [address] [place], [address] Basic Metabolic Profile (BMP )on 02-22-2024 BUN/CRE 17.8 RATIO Normal 10-20 [facility] Comment on above: Performed By: #### L 100.0100, L503.6005, L500.2500 ####[facility] [address] [place], [address] CA,Total 8.9 mg/dL Normal 8.5-10.1 [facility] Comment on above: Performed By: #### L 100.0100, L503.6005, L500.2500 ####[facility] [address] [place], [address] Chloride [Moles/Vol] 112 mmol/L High 98-107 [facility] Comment on above: Performed By: #### L 100.0100, L503.6005, L500.2500 ####[facility] [address] [place], [address] CO2 [Moles/Vol] 23.0 mmol/L Normal 21.0-32.0 [facility] Comment on above: Performed By: #### L 100.0100, L503.6005, L500.2500 ####[facility] [address] [place], [address] Creatinine [Mass/Vol] 0.90 mg/dL Normal 0.70-1.30 [facility] Comment on above: Result Comment: The validity of the calculated GFR GFRAA in patients over70 years has not been determined. Clinical correlation isessential. Performed By: #### L 100.0100, L503.6005, L500.2500 ####[facility] [address] [place], [address] ECRCL 86.00 ml/min Normal [facility] Comment on above: Performed By: #### L 100.0100, L503.6005, L500.2500 ####[facility] [address] [place], [address] EST GFR - AA 105 mL/min Normal >60 [facility] Comment on above: Result Comment: Afri can Guamanian GFR Calc Performed By: #### L 100.0100, L503.6005, L500.2500 ####[facility] [address] [place], [address] GAP 4 Low 5-15 [facility] Comment on above: Performed By: #### L 100.0100, L503.6005, L500.2500 ####[facility] [address] [place], [address] GFR/1.73 sq M.predicted among non-blacks MDRD (S/P/Bld) [Vol rate/Area] 87 mL/min/{1.73_m2} Normal >60 [facility] Comment on above: Result Comment: Non- GFR Calc Performed By: #### L 100.0100, L503.6005, L500.2500 ####[facility] [address] [place], [address] Glucose [Mass/Vol] 125 mg/dL High 74-106 [facility] Comment on above: Result Comment: Fast ing Glucose result from 100 to 125 mg/dLsuggests IMPAIRED HOMEOSTASIS per A.D.A. criteria. Performed By: #### L 100.0100, L503.6005, L500.2500 ####[facility] [address] [place], [address] Potassium [Moles/Vol] 3.9 mmol/L Normal 3.5-5.1 [facility] Comment on above: Performed By: #### L 100.0100, L503.6005, L500.2500 ####[facility] [address] [place], [address] Sodium [Moles/Vol] 138 mmol/L Normal 136-145 [facility] Comment on above: Performed By: #### L 100.0100, L503.6005, L500.2500 ####[facility] [address] [place], [address] Urea nitrogen [Mass/Vol] 16 mg/dL Normal 7-18 [facility] Comment on above: Performed By: #### L 100.0100, L503.6005, L500.2500 ####[facility] [address] [place], [address] CBC W/Diff, Automatedon 12- 0-2023 Absolute Lymph 0.92 X10 3/uL Normal 0.83-4.51 [facility] Comment on above: Performed By: #### L 100.0100, L503.6005, L500.2500 ####[facility] [address] [place], [address] Absolute Neut 6.1 X10 3/uL Normal 2.0-7.7 [facility] Comment on above: Performed By: #### L 100.0100, L503.6005, L500.2500 ####[facility] [address] [place], [address] Basophils/100 WBC (Bld) 0.4 % Normal 0-1 [facility] Comment on above: Performed By: #### L 100.0100, L503.6005, L500.2500 ####[facility] [address] [place], [address] Eosinophils/100 WBC (Bld) 0.9 % Normal 0-5 [facility] Comment on above: Performed By: #### L 100.0100, L503.6005, L500.2500 ####[facility] [address] [place], [address] Erythrocyte distribution width (RBC) [Ratio] 14.8 % High 11.6-14.6 [facility] Comment on above: Performed By: #### L 100.0100, L503.6005, L500.2500 ####[facility] [address] [place], [address] Hematocrit (Bld) [Volume fraction] 36.4 % Low 40-54 [facility] Comment on above: Performed By: #### L 100.0100, L503.6005, L500.2500 ####[facility] [address] [place], [address] Hemoglobin (Bld) [Mass/Vol] 11.4 g/dL Low 13.0-16.5 [facility] Comment on above: Performed By: #### L 100.0100, L503.6005, L500.2500 ####[facility] [address] [place], [address] IG% 0.400 Normal 0.0-0.9 [facility] Comment on above: Result Comment: IG% - Immature Granulocytes (promyelocytes, myelocytes andmetamyelocytes) > 1% indicates that a LEFT SHIFT is Present. Performed By: #### L 100.0100, L503.6005, L500.2500 ####[facility] [address] [place], [address] Lymphocytes/100 WBC (Bld) 11.9 % Low 19-41 [facility] Comment on above: Performed By: #### L 100.0100, L503.6005, L500.2500 ####[facility] [address] [place], [address] MCH (RBC) [Entitic mass] 28.4 pg Normal 27.0-32.0 [facility] Comment on above: Performed By: #### L 100.0100, L503.6005, L500.2500 ####[facility] [address] [place], [address] MCHC (RBC) [Mass/Vol] 31.3 g/dL Low 32-36 [facility] Comment on above: Performed By: #### L 100.0100, L503.6005, L500.2500 ####[facility] [address] [place], [address] MCV (RBC) [Entitic vol] 90.8 fL Normal 80-94 [facility] Comment on above: Performed By: #### L 100.0100, L503.6005, L500.2500 ####[facility] [address] [place], [address] Monocytes/100 WBC (Bld) 7.8 % Normal 0-10 [facility] Comment on above: Performed By: #### L 100.0100, L503.6005, L500.2500 ####[facility] [address] [place], [address] Neutrophils/100 WBC (Bld) 78.6 % High 47-70 [facility] Comment on above: Performed By: #### L 100.0100, L503.6005, L500.2500 ####[facility] [address] [place], [address] Nucleated RBC (Bld) [#/Vol] 0 10*3/uL Normal 0-5 [facility] Comment on above: Performed By: #### L 100.0100, L503.6005, L500.2500 ####[facility] [address] [place], [address] Platelet mean volume (Bld) [Entitic vol] 10.9 fL Normal 6.2-12.0 [facility] Comment on above: Performed By: #### L 100.0100, L503.6005, L500.2500 ####[facility] [address] [place], [address] Platelets (Bld) [#/Vol] 223 10*3/uL Normal 150-450 [facility] Comment on above: Performed By: #### L 100.0100, L503.6005, L500.2500 ####[facility] [address] [place], [address] RBC (Bld) [#/Vol] 4.01 10*6/uL Low 4.6-6.2 [facility] Comment on above: Performed By: #### L 100.0100, L503.6005, L500.2500 ####[facility] [address] [place], [address] RDW SD 49.7 fl High 35.1-43.9 [facility] Comment on above: Performed By: #### L 100.0100, L503.6005, L500.2500 ####[facility] [address] [place], [address] WBC (Bld) [#/Vol] 7.7 10*3/uL Normal 4.4-11.0 [facility] Comment on above: Performed By: #### L 100.0100, L503.6005, L500.2500 ####[facility] [address] [place], [address] Emergency Department Summary on 02-22-2024 Emergency Department Summary Normal [facility] H AND P Exam - Hospitaliston 02-22-2024 H&P Exam - Hospitalist Normal [facility] Lactic Acidon 02-22-2024 Lactate [Moles/Vol] 0.9 mmol/L Normal 0.4-1.9 [facility] Comment on above: Order Comment: Y Performed By: #### L 100.0100, L503.6005, L500.2500 ####[facility] [address] [place], [address] Magnesiumon 02-22-2024 Magnesium [Mass/Vol] 2.4 mg/dL Normal 1.6-2.6 [facility] Comment on above: Order Comment: Comme nts: May add to ED labsComments: may add to ED labs Performed By: #### L 509.7000, L501.2300, L501.5200 ####[facility] [address] [place], [address] Phosphoruson 02-22-2024 Phosphate [Mass/Vol] 2.5 mg/dL Normal 2.5-4.9 [facility] Comment on above: Order Comment: Comme nts: May add to ED labsComments: may add to ED labs Performed By: #### L 509.7000, L501.2300, L501.5200 ####[facility] [address] [place], [address] Procalcitoninon 02-22-2024 Procalcitonin 0.48 ng/mL High 0.00-0.09 [facility] Comment on above: Result Comment: A pr ocalcitonin (PCT) level above 2.0 ng/mL on the first day of ICU admission is associated with a high risk for progression to severe sepsis and/or septic shock. A PCT level below 0.5 ng/mL on the first day of ICU admission is associated with a low risk for progression to severe and/or septic shock. Note: Concentrations <0.5 ng/mL do not exclude an infection on account of localized infections (without systemic signs) which can be associated with such low concentrations, or a systemic infection in its initial stages (<6 hours). Furthermore, increased procalcitonin can occur without infection. PCT concentrations between 0.5 and 2.0 ng/mL should be interpreted taking into account the patient's history. It is recommended to retest PCT within 6-24 hours if any concentrations <2 ng/mL are obtained. Performed By: #### L 509.7000, L501.2300, L501.5200 ####[facility] [address] [place], [place], [address] CBC W/Diff, Automatedon 12-0 Absolute Lymph 0.83 X10 3/uL Normal 0.83-4.51 [facility] Comment on above: Performed By: #### L 100.0100, L503.6005, L500.4050 ####[facility] [address] [place], [address] Absolute Neut 7.5 X10 3/uL Normal 2.0-7.7 [facility] Comment on above: Performed By: #### L 100.0100, L503.6005, L500.4050 ####[facility] [address] [place], [address] Basophils/100 WBC (Bld) 0.4 % Normal 0-1 [facility] Comment on above: Performed By: #### L 100.0100, L503.6005, L500.4050 ####[facility] [address] [place], [address] Eosinophils/100 WBC (Bld) 1.0 % Normal 0-5 [facility] Comment on above: Performed By: #### L 100.0100, L503.6005, L500.4050 ####[facility] [address] [place], [address] Erythrocyte distribution width (RBC) [Ratio] 14.8 % High 11.6-14.6 [facility] Comment on above: Performed By: #### L 100.0100, L503.6005, L500.4050 ####[facility] [address] [place], [address] Hematocrit (Bld) [Volume fraction] 34.8 % Low 40-54 [facility] Comment on above: Performed By: #### L 100.0100, L503.6005, L500.4050 ####[facility] [address] [place], [address] Hemoglobin (Bld) [Mass/Vol] 11.5 g/dL Low 13.0-16.5 [facility] Comment on above: Performed By: #### L 100.0100, L503.6005, L500.4050 ####[facility] [address] [place], [address] IG% 0.700 Normal 0.0-0.9 [facility] Comment on above: Result Comment: IG% - Immature Granulocytes (promyelocytes, myelocytes andmetamyelocytes) > 1% indicates that a LEFT SHIFT is Present. Performed By: #### L 100.0100, L503.6005, L500.4050 ####[facility] [address] [place], [address] Lymphocytes/100 WBC (Bld) 9.1 % Low 19-41 [facility] Comment on above: Performed By: #### L 100.0100, L503.6005, L500.4050 ####[facility] [address] [place], [address] MCH (RBC) [Entitic mass] 29.5 pg Normal 27.0-32.0 [facility] Comment on above: Performed By: #### L 100.0100, L503.6005, L500.4050 ####[facility] [address] [place], [address] MCHC (RBC) [Mass/Vol] 33.0 g/dL Normal 32-36 [facility] Comment on above: Performed By: #### L 100.0100, L503.6005, L500.4050 ####[facility] [address] [place], [address] MCV (RBC) [Entitic vol] 89.2 fL Normal 80-94 [facility] Comment on above: Performed By: #### L 100.0100, L503.6005, L500.4050 ####[facility] [address] [place], [address] Monocytes/100 WBC (Bld) 7.2 % Normal 0-10 [facility] Comment on above: Performed By: #### L 100.0100, L503.6005, L500.4050 ####[facility] [address] [place], [address] Neutrophils/100 WBC (Bld) 81.6 % High 47-70 [facility] Comment on above: Performed By: #### L 100.0100, L503.6005, L500.4050 ####[facility] [address] [place], [address] Nucleated RBC (Bld) [#/Vol] 0 10*3/uL Normal 0-5 [facility] Comment on above: Performed By: #### L 100.0100, L503.6005, L500.4050 ####[facility] [address] [place], [address] Platelet mean volume (Bld) [Entitic vol] 10.5 fL Normal 6.2-12.0 [facility] Comment on above: Performed By: #### L 100.0100, L503.6005, L500.4050 ####[facility] [address] [place], [address] Platelets (Bld) [#/Vol] 177 10*3/uL Normal 150-450 [facility] Comment on above: Performed By: #### L 100.0100, L503.6005, L500.4050 ####[facility] [address] [place], [address] RBC (Bld) [#/Vol] 3.90 10*6/uL Low 4.6-6.2 [facility] Comment on above: Performed By: #### L 100.0100, L503.6005, L500.4050 ####[facility] [address] [place], [address] RDW SD 47.8 fl High 35.1-43.9 [facility] Comment on above: Performed By: #### L 100.0100, L503.6005, L500.4050 ####[facility] [address] [place], [address] WBC (Bld) [#/Vol] 9.2 10*3/uL Normal 4.4-11.0 [facility] Comment on above: Performed By: #### L 100.0100, L503.6005, L500.4050 ####[facility] [address] [place], [address] Chest 1 View (Portable)on Chest 1 View (Portable) Normal [facility] Comprehensive Metabolic Prof ilon 02-21-2024 Albumin [Mass/Vol] 2.9 g/dL Low 3.2-5.0 [facility] Comment on above: Performed By: #### L 100.0100, L503.6005, L500.4050 ####[facility] [address] [place], [address] Albumin/Globulin [Mass ratio] 0.7 {ratio} Low 0.9-2.4 [facility] Comment on above: Performed By: #### L 100.0100, L503.6005, L500.4050 ####[facility] [address] [place], [address] ALK P 52 U/L Normal 45-117 [facility] Comment on above: Performed By: #### L 100.0100, L503.6005, L500.4050 ####[facility] [address] [place], [address] ALT [Catalytic activity/Vol] 30 U/L Normal 16-61 [facility] Comment on above: Performed By: #### L 100.0100, L503.6005, L500.4050 ####[facility] [address] [place], [address] AST [Catalytic activity/Vol] 27 U/L Normal 15-37 [facility] Comment on above: Performed By: #### L 100.0100, L503.6005, L500.4050 ####[facility] [address] [place], [address] Bilirubin [Mass/Vol] 0.70 mg/dL Normal 0.20-1.00 [facility] Comment on above: Result Comment: For patients on eltrombopag therapy, use of Dimension Mar Lin TBIL is not recommended. Performed By: #### L 100.0100, L503.6005, L500.4050 ####[facility] [address] [place], [address] BUN/CRE 15.1 RATIO Normal 10-20 [facility] Comment on above: Performed By: #### L 100.0100, L503.6005, L500.4050 ####[facility] [address] [place], [address] CA,Total 8.5 mg/dL Normal 8.5-10.1 [facility] Comment on above: Performed By: #### L 100.0100, L503.6005, L500.4050 ####[facility] [address] [place], [address] Chloride [Moles/Vol] 113 mmol/L High 98-107 [facility] Comment on above: Performed By: #### L 100.0100, L503.6005, L500.4050 ####[facility] [address] [place], [address] CO2 [Moles/Vol] 25.0 mmol/L Normal 21.0-32.0 [facility] Comment on above: Performed By: #### L 100.0100, L503.6005, L500.4050 ####[facility] [address] [place], [address] Creatinine [Mass/Vol] 0.93 mg/dL Normal 0.70-1.30 [facility] Comment on above: Result Comment: The validity of the calculated GFR GFRAA in patients over70 years has not been determined. Clinical correlation isessential. Performed By: #### L 100.0100, L503.6005, L500.4050 ####[facility] [address] [place], [address] EST GFR - AA 101 mL/min Normal >60 [facility] Comment on above: Result Comment: Afri can Guamanian GFR Calc Performed By: #### L 100.0100, L503.6005, L500.4050 ####[facility] [address] [place], [address] GAP 4 Low 5-15 [facility] Comment on above: Performed By: #### L 100.0100, L503.6005, L500.4050 ####[facility] [address] [place], [address] GFR/1.73 sq M.predicted among non-blacks MDRD (S/P/Bld) [Vol rate/Area] 84 mL/min/{1.73_m2} Normal >60 [facility] Comment on above: Result Comment: Non- GFR Calc Performed By: #### L 100.0100, L503.6005, L500.4050 ####[facility] [address] [place], [address] Globulin (S) [Mass/Vol] 4.1 g/dL Normal 2.2-4.2 [facility] Comment on above: Performed By: #### L 100.0100, L503.6005, L500.4050 ####[facility] [address] [place], [address] Glucose [Mass/Vol] 101 mg/dL Normal 74-106 [facility] Comment on above: Result Comment: Fast ing Glucose result from 100 to 125 mg/dLsuggests IMPAIRED HOMEOSTASIS per A.D.A. criteria. Performed By: #### L 100.0100, L503.6005, L500.4050 ####[facility] [address] [place], [address] Potassium [Moles/Vol] 3.7 mmol/L Normal 3.5-5.1 [facility] Comment on above: Performed By: #### L 100.0100, L503.6005, L500.4050 ####[facility] [address] [place], [address] Sodium [Moles/Vol] 142 mmol/L Normal 136-145 [facility] Comment on above: Performed By: #### L 100.0100, L503.6005, L500.4050 ####[facility] [address] [place], [address] T PROT 7.0 g/dL Normal 6.4-8.2 [facility] Comment on above: Performed By: #### L 100.0100, L503.6005, L500.4050 ####[facility] [address] [place], [address] Urea nitrogen [Mass/Vol] 14 mg/dL Normal 7-18 [facility] Comment on above: Performed By: #### L 100.0100, L503.6005, L500.4050 ####[facility] [address] [place], [address] Emergency Department Summary on 02-21-2024 Emergency Department Summary Normal [facility] Lactic Acidon 02-21-2024 Lactate [Moles/Vol] 1.4 mmol/L Normal 0.4-1.9 [facility] Comment on above: Order Comment: Y Performed By: #### L 100.0100, L503.6005, L500.4050 ####[facility] [address] [place], [address] M100.678on 02-21-2024 M100.678 Pending SARS-CoV-2 (COVID 19) Negative INFLUENZA A Negative INFLUENZA B Negative RSV PCR Negative Normal [facility] Comment on above: Performed By: #### M 100.678 ####[facility] [address] [place], [address] Urinalysis, Completeon 02-20 BACTERIA RARE Normal None Seen [facility] Comment on above: Order Comment: COLOR OF URINE MAY AFFECT DIPSTICK RESULTS.ESTATE PLANNING DIRECTOR TO SPECIFY Performed By: #### L 400.0001 ####[facility] [address] [place], [address] CAST,HYALINE 0-5 SEEN Normal 0-5 [facility] Comment on above: Order Comment: COLOR OF URINE MAY AFFECT DIPSTICK RESULTS.ESTATE PLANNING DIRECTOR TO SPECIFY Performed By: #### L 400.0001 ####[facility] [address] [place], [address] EPI,RENAL 0-5 SEEN Normal 0-5 [facility] Comment on above: Order Comment: COLOR OF URINE MAY AFFECT DIPSTICK RESULTS.ESTATE PLANNING DIRECTOR TO SPECIFY Performed By: #### L 400.0001 ####[facility] [address] [place], [address] EPI,TRANSITION 0-5 SEEN Normal 0-5 [facility] Comment on above: Order Comment: COLOR OF URINE MAY AFFECT DIPSTICK RESULTS.ESTATE PLANNING DIRECTOR TO SPECIFY Performed By: #### L 400.0001 ####[facility] [address] [place], [address] Mucus Ql (Urine sed) 1+ /hpf Normal [facility] Comment on above: Order Comment: COLOR OF URINE MAY AFFECT DIPSTICK RESULTS.ESTATE PLANNING DIRECTOR TO SPECIFY Performed By: #### L 400.0001 ####[facility] [address] [place], [address] EPI,SQUAMOUS 0-5 SEEN Normal 0-5 [facility] Comment on above: Order Comment: COLOR OF URINE MAY AFFECT DIPSTICK RESULTS.ESTATE PLANNING DIRECTOR TO SPECIFY Performed By: #### L 400.0001 ####[facility] [address] [place], [address] RBC 0-5 SEEN Normal 0-5 [facility] Comment on above: Order Comment: COLOR OF URINE MAY AFFECT DIPSTICK RESULTS.ESTATE PLANNING DIRECTOR TO SPECIFY Performed By: #### L 400.0001 ####[facility] [address] [place], [address] WBC 10-25 SEEN Normal 0-5 [facility] Comment on above: Order Comment: COLOR OF URINE MAY AFFECT DIPSTICK RESULTS.ESTATE PLANNING DIRECTOR TO SPECIFY Performed By: #### L 400.0001 ####[facility] [address] [place], [address] Urine Cultureon 02-18-2024 URC Normal [facility] Comment on above: Performed By: #### M 100.2200 ####[facility] [address] [place], [address] Discharge Instructionon 12-0 Discharge Instruction Normal [facility] Basic Metabolic Profile (BMP )on 02-16-2024 BUN/CRE 16.2 RATIO Normal 10-20 [facility] Comment on above: Performed By: #### L 500.2500 ####[facility] [address] [place], [address] CA,Total 8.5 mg/dL Normal 8.5-10.1 [facility] Comment on above: Performed By: #### L 500.2500 ####[facility] [address] [place], [address] Chloride [Moles/Vol] 112 mmol/L High 98-107 [facility] Comment on above: Performed By: #### L 500.2500 ####[facility] [address] [place], [address] CO2 [Moles/Vol] 21.0 mmol/L Normal 21.0-32.0 [facility] Comment on above: Performed By: #### L 500.2500 ####[facility] [address] [place], [address] Creatinine [Mass/Vol] 1.30 mg/dL Normal 0.70-1.30 [facility] Comment on above: Result Comment: The validity of the calculated GFR GFRAA in patients over70 years has not been determined. Clinical correlation isessential. Performed By: #### L 500.2500 ####[facility] [address] [place], [address] ECRCL 58.01 ml/min Normal [facility] Comment on above: Performed By: #### L 500.2500 ####[facility] [address] [place], [address] EST GFR - AA 69 mL/min Normal >60 [facility] Comment on above: Result Comment: Afri can Guamanian GFR Calc Performed By: #### L 500.2500 ####[facility] [address] [place], [address] GAP 8 Normal 5-15 [facility] Comment on above: Performed By: #### L 500.2500 ####[facility] [address] [place], [address] GFR/1.73 sq M.predicted among non-blacks MDRD (S/P/Bld) [Vol rate/Area] 57 mL/min/{1.73_m2} Low >60 [facility] Comment on above: Result Comment: Non- GFR Calc Performed By: #### L 500.2500 ####[facility] [address] [place], [address] Glucose [Mass/Vol] 147 mg/dL High 74-106 [facility] Comment on above: Result Comment: Fast ing Glucose result greater than or equal to 126 mg/dLsuggests DIABETES MELLITUS per A.D.A. criteria. Performed By: #### L 500.2500 ####[facility] [address] [place], [address] Potassium [Moles/Vol] 3.4 mmol/L Low 3.5-5.1 [facility] Comment on above: Performed By: #### L 500.2500 ####[facility] [address] [place], [address] Sodium [Moles/Vol] 140 mmol/L Normal 136-145 [facility] Comment on above: Performed By: #### L 500.2500 ####[facility] [address] [place], [address] Urea nitrogen [Mass/Vol] 21 mg/dL High 7-18 [facility] Comment on above: Performed By: #### L 500.2500 ####[facility] [address] [place], [address] Culture, Blood (WB)on 2023 CUB Blood cultures x2, f rom two different sites No growth in 5 days. Normal [facility] Comment on above: Performed By: #### L 500.2500, L100.0100, L501.4020, L503.6005, M200.1000 ####[facility] [address] [place], [address] Performed By: #### M 200.1000 ####[facility] [address] [place], [address] Basic Metabolic Profile (BMP )on 02-15-2024 BUN/CRE 18.4 RATIO Normal 10-20 [facility] Comment on above: Performed By: #### L 100.0100, L500.2500 ####[facility] [address] [place], [address] CA,Total 8.5 mg/dL Normal 8.5-10.1 [facility] Comment on above: Performed By: #### L 100.0100, L500.2500 ####[facility] [address] [place], [address] Chloride [Moles/Vol] 112 mmol/L High 98-107 [facility] Comment on above: Performed By: #### L 100.0100, L500.2500 ####[facility] [address] [place], [address] CO2 [Moles/Vol] 26.0 mmol/L Normal 21.0-32.0 [facility] Comment on above: Performed By: #### L 100.0100, L500.2500 ####[facility] [address] [place], [address] Creatinine [Mass/Vol] 1.36 mg/dL High 0.70-1.30 [facility] Comment on above: Result Comment: The validity of the calculated GFR GFRAA in patients over70 years has not been determined. Clinical correlation isessential. Performed By: #### L 100.0100, L500.2500 ####[facility] [address] [place], [address] ECRCL 55.45 ml/min Normal [facility] Comment on above: Performed By: #### L 100.0100, L500.2500 ####[facility] [address] [place], [address] EST GFR - AA 65 mL/min Normal >60 [facility] Comment on above: Result Comment: Afri can Guamanian GFR Calc Performed By: #### L 100.0100, L500.2500 ####[facility] [address] [place], [address] GAP 3 Low 5-15 [facility] Comment on above: Performed By: #### L 100.0100, L500.2500 ####[facility] [address] [place], [address] GFR/1.73 sq M.predicted among non-blacks MDRD (S/P/Bld) [Vol rate/Area] 54 mL/min/{1.73_m2} Low >60 [facility] Comment on above: Result Comment: Non- GFR Calc Performed By: #### L 100.0100, L500.2500 ####[facility] [address] [place], [address] Glucose [Mass/Vol] 108 mg/dL High 74-106 [facility] Comment on above: Result Comment: Fast ing Glucose result from 100 to 125 mg/dLsuggests IMPAIRED HOMEOSTASIS per A.D.A. criteria. Performed By: #### L 100.0100, L500.2500 ####[facility] [address] [place], [address] Potassium [Moles/Vol] 3.5 mmol/L Normal 3.5-5.1 [facility] Comment on above: Performed By: #### L 100.0100, L500.2500 ####[facility] [address] [place], [address] Sodium [Moles/Vol] 140 mmol/L Normal 136-145 [facility] Comment on above: Performed By: #### L 100.0100, L500.2500 ####[facility] [address] [place], [address] Urea nitrogen [Mass/Vol] 25 mg/dL High 7-18 [facility] Comment on above: Performed By: #### L 100.0100, L500.2500 ####[facility] [address] [place], [address] CBC W/Diff, Automatedon 12-0 3-2023 Absolute Lymph 0.86 X10 3/uL Normal 0.83-4.51 [facility] Comment on above: Performed By: #### L 100.0100, L500.2500 ####[facility] [address] [place], [address] Absolute Neut 8.9 X10 3/uL High 2.0-7.7 [facility] Comment on above: Performed By: #### L 100.0100, L500.2500 ####[facility] [address] [place], [address] Basophils/100 WBC (Bld) 0.4 % Normal 0-1 [facility] Comment on above: Performed By: #### L 100.0100, L500.2500 ####[facility] [address] [place], [address] Eosinophils/100 WBC (Bld) 0.9 % Normal 0-5 [facility] Comment on above: Performed By: #### L 100.0100, L500.2500 ####[facility] [address] [place], [address] Erythrocyte distribution width (RBC) [Ratio] 15.2 % High 11.6-14.6 [facility] Comment on above: Performed By: #### L 100.0100, L500.2500 ####[facility] [address] [place], [address] Hematocrit (Bld) [Volume fraction] 32.8 % Low 40-54 [facility] Comment on above: Performed By: #### L 100.0100, L500.2500 ####[facility] [address] [place], [address] Hemoglobin (Bld) [Mass/Vol] 10.3 g/dL Low 13.0-16.5 [facility] Comment on above: Performed By: #### L 100.0100, L500.2500 ####[facility] [address] [place], [address] IG% 0.800 Normal 0.0-0.9 [facility] Comment on above: Result Comment: IG% - Immature Granulocytes (promyelocytes, myelocytes andmetamyelocytes) > 1% indicates that a LEFT SHIFT is Present. Performed By: #### L 100.0100, L500.2500 ####[facility] [address] [place], [address] Lymphocytes/100 WBC (Bld) 8.1 % Low 19-41 [facility] Comment on above: Performed By: #### L 100.0100, L500.2500 ####[facility] [address] [place], [address] MCH (RBC) [Entitic mass] 28.5 pg Normal 27.0-32.0 [facility] Comment on above: Performed By: #### L 100.0100, L500.2500 ####[facility] [address] [place], [address] MCHC (RBC) [Mass/Vol] 31.4 g/dL Low 32-36 [facility] Comment on above: Performed By: #### L 100.0100, L500.2500 ####[facility] [address] [place], [address] MCV (RBC) [Entitic vol] 90.9 fL Normal 80-94 [facility] Comment on above: Performed By: #### L 100.0100, L500.2500 ####[facility] [address] [place], [address] Monocytes/100 WBC (Bld) 5.9 % Normal 0-10 [facility] Comment on above: Performed By: #### L 100.0100, L500.2500 ####[facility] [address] [place], [address] Neutrophils/100 WBC (Bld) 83.9 % High 47-70 [facility] Comment on above: Performed By: #### L 100.0100, L500.2500 ####[facility] [address] [place], [address] Nucleated RBC (Bld) [#/Vol] 0 10*3/uL Normal 0-5 [facility] Comment on above: Performed By: #### L 100.0100, L500.2500 ####[facility] [address] [place], [address] Platelet mean volume (Bld) [Entitic vol] 10.8 fL Normal 6.2-12.0 [facility] Comment on above: Performed By: #### L 100.0100, L500.2500 ####[facility] [address] [place], [address] Platelets (Bld) [#/Vol] 116 10*3/uL Low 150-450 [facility] Comment on above: Performed By: #### L 100.0100, L500.2500 ####[facility] [address] [place], [address] RBC (Bld) [#/Vol] 3.61 10*6/uL Low 4.6-6.2 [facility] Comment on above: Performed By: #### L 100.0100, L500.2500 ####[facility] [address] [place], [address] RDW SD 50.5 fl High 35.1-43.9 [facility] Comment on above: Performed By: #### L 100.0100, L500.2500 ####[facility] [address] [place], [address] WBC (Bld) [#/Vol] 10.6 10*3/uL Normal 4.4-11.0 [facility] Comment on above: Performed By: #### L 100.0100, L500.2500 ####[facility] [address] [place], [address] Urinalysis, Completeon 02-14 BACTERIA RARE Normal None Seen [facility] Comment on above: Order Comment: CLEAN CATCH Performed By: #### L 400.0001 ####[facility] [address] [place] [address] RBC 10-25 SEEN Normal 0-5 [facility] Comment on above: Order Comment: CLEAN CATCH Performed By: #### L 400.0001 ####[facility] [address] [place] [id number] WBC 50-100 SEEN Normal 0-5 [facility] Comment on above: Order Comment: CLEAN CATCH Performed By: #### L 400.0001 ####[facility] [address] [place], [address] EPI,SQUAMOUS 0 SEEN Normal 0-5 [facility] Comment on above: Order Comment: CLEAN CATCH Performed By: #### L 400.0001 ####[facility] [address] [place], [place], [address] Mucus Ql (Urine sed) 0 SEEN Normal [facility] Comment on above: Order Comment: CLEAN CATCH Performed By: #### L 400.0001 ####[facility] [address] [place], [place], [id number] Vancomycin, Trough Levelon 1 04-17-2023 VANCO, TROUGH 15.9 ug/mL High 5.0-15.0 [facility] Comment on above: Order Comment: PT IS IN MRI, PRUDENCIO MOCTEZMUALEVEL VIAL INSPECTOR WILL CALL LAB ONCE THE PATIENTIS BACK IN HIS ROOMComments: Trough to be drawn 30 mins prior to scheduled [id number] Result Comment: VANC OMYCIN STANDARED DRUG THERAPY TROUGH LEVEL: 5.0 - 15.0 mg/LVANCOMYCIN HIGH INTENSITY THERAPY TROUGH LEVEL: 15.0 - 20.0 mg/LHigh Intensity therapy recommended for serious lifethreatening infections include:- Obnhfdmypr-Kuauakkeavaf-Phemuxutl (Ventilator/Healtcare Associated)-SepsisPLEASE CONTACT PHARMACY SERVICES (#8252) FOR INTERPRETATIONOF RESULTS. Performed By: #### L 501.8820 ####[facility] [address] [place], [address] Abdomen/Pelvis W IV Cont ONL Yon 02-14-2024 Abdomen/Pelvis W IV Cont ONLY Normal [facility] Basic Metabolic Profile (BMP )on 02-14-2024 BUN/CRE 20.3 RATIO High 10-20 [facility] Comment on above: Performed By: #### L 500.2500, L100.0100 ####[facility] [address] [place], [address] CA,Total 8.8 mg/dL Normal 8.5-10.1 [facility] Comment on above: Performed By: #### L 500.2500, L100.0100 ####[facility] [address] [place], [address] Chloride [Moles/Vol] 112 mmol/L High 98-107 [facility] Comment on above: Performed By: #### L 500.2500, L100.0100 ####[facility] [address] [place], [address] CO2 [Moles/Vol] 22.0 mmol/L Normal 21.0-32.0 [facility] Comment on above: Performed By: #### L 500.2500, L100.0100 ####[facility] [address] [place], [address] Creatinine [Mass/Vol] 1.33 mg/dL High 0.70-1.30 [facility] Comment on above: Result Comment: The validity of the calculated GFR GFRAA in patients over70 years has not been determined. Clinical correlation isessential. Performed By: #### L 500.2500, L100.0100 ####[facility] [address] [place], [address] ECRCL 56.70 ml/min Normal [facility] Comment on above: Performed By: #### L 500.2500, L100.0100 ####[facility] [address] [place], [address] EST GFR - AA 67 mL/min Normal >60 [facility] Comment on above: Result Comment: Afri can Guamanian GFR Calc Performed By: #### L 500.2500, L100.0100 ####[facility] [address] [place], [address] GAP 8 Normal 5-15 [facility] Comment on above: Performed By: #### L 500.2500, L100.0100 ####[facility] [address] [place], [address] GFR/1.73 sq M.predicted among non-blacks MDRD (S/P/Bld) [Vol rate/Area] 55 mL/min/{1.73_m2} Low >60 [facility] Comment on above: Result Comment: Non- GFR Calc Performed By: #### L 500.2500, L100.0100 ####[facility] [address] [place], [address] Glucose [Mass/Vol] 155 mg/dL High 74-106 [facility] Comment on above: Result Comment: Fast ing Glucose result greater than or equal to 126 mg/dLsuggests DIABETES MELLITUS per A.D.A. criteria. Performed By: #### L 500.2500, L100.0100 ####[facility] [address] [place], [address] Potassium [Moles/Vol] 3.5 mmol/L Normal 3.5-5.1 [facility] Comment on above: Performed By: #### L 500.2500, L100.0100 ####[facility] [address] [place], [address] Sodium [Moles/Vol] 142 mmol/L Normal 136-145 [facility] Comment on above: Performed By: #### L 500.2500, L100.0100 ####[facility] [address] [place], [address] Urea nitrogen [Mass/Vol] 27 mg/dL High 7-18 [facility] Comment on above: Performed By: #### L 500.2500, L100.0100 ####[facility] [address] [place], [address] CBC W/Diff, Automatedon Absolute Lymph 0.00 X10 3/uL Low 0.83-4.51 [facility] Comment on above: Performed By: #### L 500.2500, L100.0100 ####[facility] [address] [place], [address] Absolute Neut 17.7 X10 3/uL High 2.0-7.7 [facility] Comment on above: Performed By: #### L 500.2500, L100.0100 ####[facility] [address] [place], [address] Chest 1 View (Portable)on Chest 1 View (Portable) Normal [facility] Consultation - Infectious Dx on 02-14-2024 Consultation - Infectious Dx Normal [facility] Lactic Acidon 02-14-2024 Lactate [Moles/Vol] 2.6 mmol/L Invalid Interpretation Code 0.4-1.9 [facility] Comment on above: Result Comment: Crit ical Result(s) Called at: 04:54:17 02/14/2024 by:Arabella guthrie. Results read back by same. Performed By: #### L 503.6005 ####[facility] [address] [place], [address] Lactate [Moles/Vol] 2.1 mmol/L Invalid Interpretation Code 0.4-1.9 [facility] Comment on above: Order Comment: Y Result Comment: Crit ical Result(s) Called at: 00:06:32 02/14/2024 by:Arabella GUTHRIE. Results read back by same. Performed By: #### L 500.2500, L503.6005, L100.0500 ####[facility] [address] [place], [address] MRI Abd WITH and W/O Contras ton 02-14-2024 MRI Abd WITH and W/O Contrast Normal [facility] 12 Lead EKGon 02-13-2024 12 Lead EKG Normal [facility] Basic Metabolic Profile (BMP )on 02-13-2024 BUN/CRE 21.6 RATIO High 10-20 [facility] Comment on above: Performed By: #### L 500.2500, L503.6005, L100.0500 ####[facility] [address] [place], [address] CA,Total 8.8 mg/dL Normal 8.5-10.1 [facility] Comment on above: Performed By: #### L 500.2500, L503.6005, L100.0500 ####[facility] [address] [place], [address] Chloride [Moles/Vol] 112 mmol/L High 98-107 [facility] Comment on above: Performed By: #### L 500.2500, L503.6005, L100.0500 ####[facility] [address] [place], [address] CO2 [Moles/Vol] 23.0 mmol/L Normal 21.0-32.0 [facility] Comment on above: Performed By: #### L 500.2500, L503.6005, L100.0500 ####[facility] [address] [place], [address] Creatinine [Mass/Vol] 1.25 mg/dL Normal 0.70-1.30 [facility] Comment on above: Result Comment: The validity of the calculated GFR GFRAA in patients over70 years has not been determined. Clinical correlation isessential. Performed By: #### L 500.2500, L503.6005, L100.0500 ####[facility] [address] [place], [address] ECRCL 60.33 ml/min Normal [facility] Comment on above: Performed By: #### L 500.2500, L503.6005, L100.0500 ####[facility] [address] [place], [address] EST GFR - AA 72 mL/min Normal >60 [facility] Comment on above: Result Comment: Afri can Guamanian GFR Calc Performed By: #### L 500.2500, L503.6005, L100.0500 ####[facility] [address] [place], [address] GAP 8 Normal 5-15 [facility] Comment on above: Performed By: #### L 500.2500, L503.6005, L100.0500 ####[facility] [address] [place], [address] GFR/1.73 sq M.predicted among non-blacks MDRD (S/P/Bld) [Vol rate/Area] 59 mL/min/{1.73_m2} Low >60 [facility] Comment on above: Result Comment: Non- GFR Calc Performed By: #### L 500.2500, L503.6005, L100.0500 ####[facility] [address] [place], [address] Glucose [Mass/Vol] 156 mg/dL High 74-106 [facility] Comment on above: Result Comment: Fast ing Glucose result greater than or equal to 126 mg/dLsuggests DIABETES MELLITUS per A.D.A. criteria. Performed By: #### L 500.2500, L503.6005, L100.0500 ####[facility] [address] [place], [address] Potassium [Moles/Vol] 3.1 mmol/L Low 3.5-5.1 [facility] Comment on above: Performed By: #### L 500.2500, L503.6005, L100.0500 ####[facility] [address] [place], [address] Sodium [Moles/Vol] 143 mmol/L Normal 136-145 [facility] Comment on above: Performed By: #### L 500.2500, L503.6005, L100.0500 ####[facility] [address] [place], [address] Urea nitrogen [Mass/Vol] 27 mg/dL High 7-18 [facility] Comment on above: Performed By: #### L 500.2500, L503.6005, L100.0500 ####[facility] [address] [place], [address] BUN/CRE 21.1 RATIO High 10-20 [facility] Comment on above: Performed By: #### L 500.2500, L100.0100 ####[facility] [address] [place], [address] CA,Total 8.5 mg/dL Normal 8.5-10.1 [facility] Comment on above: Performed By: #### L 500.2500, L100.0100 ####[facility] [address] [place], [address] Chloride [Moles/Vol] 110 mmol/L High 98-107 [facility] Comment on above: Performed By: #### L 500.2500, L100.0100 ####[facility] [address] [place], [address] CO2 [Moles/Vol] 23.0 mmol/L Normal 21.0-32.0 [facility] Comment on above: Performed By: #### L 500.2500, L100.0100 ####[facility] [address] [place], [address] Creatinine [Mass/Vol] 1.00 mg/dL Normal 0.70-1.30 [facility] Comment on above: Result Comment: The validity of the calculated GFR GFRAA in patients over70 years has not been determined. Clinical correlation isessential. Performed By: #### L 500.2500, L100.0100 ####[facility] [address] [place], [address] ECRCL 75.41 ml/min Normal [facility] Comment on above: Performed By: #### L 500.2500, L100.0100 ####[facility] [address] [place], [address] EST GFR - AA 93 mL/min Normal >60 [facility] Comment on above: Result Comment: Afri can Guamanian GFR Calc Performed By: #### L 500.2500, L100.0100 ####[facility] [address] [place], [address] GAP 9 Normal 5-15 [facility] Comment on above: Performed By: #### L 500.2500, L100.0100 ####[facility] [address] [place], [address] GFR/1.73 sq M.predicted among non-blacks MDRD (S/P/Bld) [Vol rate/Area] 77 mL/min/{1.73_m2} Normal >60 [facility] Comment on above: Result Comment: Non- GFR Calc Performed By: #### L 500.2500, L100.0100 ####[facility] [address] [place], [address] Glucose [Mass/Vol] 91 mg/dL Normal 74-106 [facility] Comment on above: Performed By: #### L 500.2500, L100.0100 ####[facility] [address] [place], [address] Potassium [Moles/Vol] 2.9 mmol/L Low 3.5-5.1 [facility] Comment on above: Performed By: #### L 500.2500, L100.0100 ####[facility] [address] [place], [address] Sodium [Moles/Vol] 142 mmol/L Normal 136-145 [facility] Comment on above: Performed By: #### L 500.2500, L100.0100 ####[facility] [address] [place], [address] Urea nitrogen [Mass/Vol] 21 mg/dL High 7-18 [facility] Comment on above: Performed By: #### L 500.2500, L100.0100 ####[facility] [address] [place], [address] Bedside Glucoseon 02-13-2024 FINGERSTICK GLU 129 mg/dL High 74-106 [facility] Comment on above: Result Comment: NETO XIE OF PATIENT CARE PER NURSING PROTOCOL Performed By: #### L 501.080 ####[facility] [address] [place], [address] [facility] Positive Normal [facility] Comment on above: Performed By: #### L 9000.0800 ####[facility] [address] [place], [address] Base excess Calc (Bld) [Moles/Vol] -4 mmol/L Low -2 to +2 [facility] Comment on above: Performed By: #### L 9000.0800 ####[facility] [address] [place], [address] Blood Gas Type ART Normal [facility] Comment on above: Performed By: #### L 9000.0800 ####[facility] [address] [place], [address] CO2 [Moles/Vol] 20 mmol/L Normal [facility] Comment on above: Performed By: #### L 9000.0800 ####[facility] [address] [place], [address] FI02 2.0 Normal [facility] Comment on above: Performed By: #### L 9000.0800 ####[facility] [address] [place], [address] HCO3 (Bld) [Moles/Vol] 19.6 mmol/L Low 22-26 [facility] Comment on above: Performed By: #### L 9000.0800 ####[facility] [address] [place], [address] Mode Not entered Normal [facility] Comment on above: Performed By: #### L 9000.0800 ####[facility] [address] [place], [address] O2 Delivery Dev Cannula Normal [facility] Comment on above: Performed By: #### L 9000.0800 ####[facility] [address] [place], [address] pCO2 25.9 mmHg Low 35-45 [facility] Comment on above: Performed By: #### L 9000.0800 ####[facility] [address] [place], [address] pH (Bld) 7.49 [pH] High 7.35-7.45 [facility] Comment on above: Performed By: #### L 9000.0800 ####[facility] [address] [place], [address] PO2 85 mmHG Normal 75-100 [facility] Comment on above: Performed By: #### L 9000.0800 ####[facility] [address] [place], [address] SITE R Radial Normal [facility] Comment on above: Performed By: #### L 9000.0800 ####[facility] [address] [place], [address] SO2 97 Normal 95-99 [facility] Comment on above: Performed By: #### L 9000.0800 ####[facility] [address] [place], [address] Brain/Head without Contrasto n 02-13-2024 Brain/Head without Contrast Normal [facility] CBC W/Diff, Automatedon 12-0 Absolute Lymph 1.09 X10 3/uL Normal 0.83-4.51 [facility] Comment on above: Performed By: #### L 500.2500, L100.0100 ####[facility] [address] [place], [address] Absolute Neut 3.9 X10 3/uL Normal 2.0-7.7 [facility] Comment on above: Performed By: #### L 500.2500, L100.0100 ####[facility] [address] [place], [address] Basophils/100 WBC (Bld) 0.5 % Normal 0-1 [facility] Comment on above: Performed By: #### L 500.2500, L100.0100 ####[facility] [address] [place], [address] Eosinophils/100 WBC (Bld) 2.6 % Normal 0-5 [facility] Comment on above: Performed By: #### L 500.2500, L100.0100 ####[facility] [address] [place], [address] Erythrocyte distribution width (RBC) [Ratio] 14.4 % Normal 11.6-14.6 [facility] Comment on above: Performed By: #### L 500.2500, L100.0100 ####[facility] [address] [place], [address] Hematocrit (Bld) [Volume fraction] 35.4 % Low 40-54 [facility] Comment on above: Performed By: #### L 500.2500, L100.0100 ####[facility] [address] [place], [address] Hemoglobin (Bld) [Mass/Vol] 11.6 g/dL Low 13.0-16.5 [facility] Comment on above: Performed By: #### L 500.2500, L100.0100 ####[facility] [address] [place], [address] IG% 0.300 Normal 0.0-0.9 [facility] Comment on above: Result Comment: IG% - Immature Granulocytes (promyelocytes, myelocytes andmetamyelocytes) > 1% indicates that a LEFT SHIFT is Present. Performed By: #### L 500.2500, L100.0100 ####[facility] [address] [place], [address] Lymphocytes/100 WBC (Bld) 18.7 % Low 19-41 [facility] Comment on above: Performed By: #### L 500.2500, L100.0100 ####[facility] [address] [place], [address] MCH (RBC) [Entitic mass] 29.1 pg Normal 27.0-32.0 [facility] Comment on above: Performed By: #### L 500.2500, L100.0100 ####[facility] [address] [place], [address] MCHC (RBC) [Mass/Vol] 32.8 g/dL Normal 32-36 [facility] Comment on above: Performed By: #### L 500.2500, L100.0100 ####[facility] [address] [place], [address] MCV (RBC) [Entitic vol] 88.7 fL Normal 80-94 [facility] Comment on above: Performed By: #### L 500.2500, L100.0100 ####[facility] [address] [place], [address] Monocytes/100 WBC (Bld) 11.0 % High 0-10 [facility] Comment on above: Performed By: #### L 500.2500, L100.0100 ####[facility] [address] [place], [address] Neutrophils/100 WBC (Bld) 66.9 % Normal 47-70 [facility] Comment on above: Performed By: #### L 500.2500, L100.0100 ####[facility] [address] [place], [address] Nucleated RBC (Bld) [#/Vol] 0 10*3/uL Normal 0-5 [facility] Comment on above: Performed By: #### L 500.2500, L100.0100 ####[facility] [address] [place], [address] Platelet mean volume (Bld) [Entitic vol] 11.0 fL Normal 6.2-12.0 [facility] Comment on above: Performed By: #### L 500.2500, L100.0100 ####[facility] [address] [place], [address] Platelets (Bld) [#/Vol] 149 10*3/uL Low 150-450 [facility] Comment on above: Performed By: #### L 500.2500, L100.0100 ####[facility] [address] [place], [address] RBC (Bld) [#/Vol] 3.99 10*6/uL Low 4.6-6.2 [facility] Comment on above: Performed By: #### L 500.2500, L100.0100 ####[facility] [address] [place], [address] RDW SD 46.3 fl High 35.1-43.9 [facility] Comment on above: Performed By: #### L 500.2500, L100.0100 ####[facility] [address] [place], [address] WBC (Bld) [#/Vol] 5.8 10*3/uL Normal 4.4-11.0 [facility] Comment on above: Performed By: #### L 500.2500, L100.0100 ####[facility] [address] [place], [address] CBC-Complete Blood Cnt No Di ffon 02-13-2024 Erythrocyte distribution width (RBC) [Ratio] 14.3 % Normal 11.6-14.6 [facility] Comment on above: Performed By: #### L 500.2500, L503.6005, L100.0500 ####[facility] [address] [place], [address] Hematocrit (Bld) [Volume fraction] 36.0 % Low 40-54 [facility] Comment on above: Performed By: #### L 500.2500, L503.6005, L100.0500 ####[facility] [address] [place], [address] Hemoglobin (Bld) [Mass/Vol] 12.0 g/dL Low 13.0-16.5 [facility] Comment on above: Performed By: #### L 500.2500, L503.6005, L100.0500 ####[facility] [address] [place], [address] MCH (RBC) [Entitic mass] 29.3 pg Normal 27.0-32.0 [facility] Comment on above: Performed By: #### L 500.2500, L503.6005, L100.0500 ####[facility] [address] [place], [address] MCHC (RBC) [Mass/Vol] 33.3 g/dL Normal 32-36 [facility] Comment on above: Performed By: #### L 500.2500, L503.6005, L100.0500 ####[facility] [address] [place], [address] MCV (RBC) [Entitic vol] 87.8 fL Normal 80-94 [facility] Comment on above: Performed By: #### L 500.2500, L503.6005, L100.0500 ####[facility] [address] [place], [address] Platelet mean volume (Bld) [Entitic vol] 10.1 fL Normal 6.2-12.0 [facility] Comment on above: Performed By: #### L 500.2500, L503.6005, L100.0500 ####[facility] [address] [place], [address] Platelets (Bld) [#/Vol] 134 10*3/uL Low 150-450 [facility] Comment on above: Performed By: #### L 500.2500, L503.6005, L100.0500 ####[facility] [address] [place], [address] RBC (Bld) [#/Vol] 4.10 10*6/uL Low 4.6-6.2 [facility] Comment on above: Performed By: #### L 500.2500, L503.6005, L100.0500 ####[facility] [address] [place], [address] RDW SD 46.0 fl High 35.1-43.9 [facility] Comment on above: Performed By: #### L 500.2500, L503.6005, L100.0500 ####[facility] [address] [place], [address] WBC (Bld) [#/Vol] 10.4 10*3/uL Normal 4.4-11.0 [facility] Comment on above: Performed By: #### L 500.2500, L503.6005, L100.0500 ####[facility] [address] [place], [address] Magnesiumon 02-13-2024 Magnesium [Mass/Vol] 2.2 mg/dL Normal 1.6-2.6 [facility] Comment on above: Order Comment: SG1 1 JSG1 5 H Performed By: #### L 501.5200 ####[facility] [address] [place], [address] 12 Lead EKGon 02-12-2024 12 Lead EKG Normal [facility] BNP,B-Type NATRIURETIC PEPTI Qamar 02-12-2024 Natriuretic peptide B (Bld) [Mass/Vol] 195.0 pg/mL High 0-100 [facility] Comment on above: Order Comment: OK TO ADD PER PRUDENCIO PAGE Performed By: #### L 503.6679 ####[facility] [address] [place], [address] Basic Metabolic Profile (BMP )on 02-12-2024 BUN/CRE 18.6 RATIO Normal 10-20 [facility] Comment on above: Order Comment: 'TROP ' Serial specimen #1, #2 or #3: 1 Performed By: #### L 500.2500, L100.0100, L501.4020, L503.6005, M200.1000 ####[facility] [address] [place], [address] CA,Total 8.6 mg/dL Normal 8.5-10.1 [facility] Comment on above: Order Comment: 'TROP ' Serial specimen #1, #2 or #3: 1 Performed By: #### L 500.2500, L100.0100, L501.4020, L503.6005, M200.1000 ####[facility] [address] [place], [address] Chloride [Moles/Vol] 106 mmol/L Normal 98-107 [facility] Comment on above: Order Comment: 'TROP ' Serial specimen #1, #2 or #3: 1 Performed By: #### L 500.2500, L100.0100, L501.4020, L503.6005, M200.1000 ####[facility] [address] [place], [address] CO2 [Moles/Vol] 29.0 mmol/L Normal 21.0-32.0 [facility] Comment on above: Order Comment: 'TROP ' Serial specimen #1, #2 or #3: 1 Performed By: #### L 500.2500, L100.0100, L501.4020, L503.6005, M200.1000 ####[facility] [address] [place], [address] Creatinine [Mass/Vol] 1.45 mg/dL High 0.70-1.30 [facility] Comment on above: Order Comment: 'TROP ' Serial specimen #1, #2 or #3: 1 Result Comment: The validity of the calculated GFR GFRAA in patients over70 years has not been determined. Clinical correlation isessential. Performed By: #### L 500.2500, L100.0100, L501.4020, L503.6005, M200.1000 ####[facility] [address] [place], [address] ECRCL 53.60 ml/min Normal [facility] Comment on above: Order Comment: 'TROP ' Serial specimen #1, #2 or #3: 1 Performed By: #### L 500.2500, L100.0100, L501.4020, L503.6005, M200.1000 ####[facility] [address] [place], [address] EST GFR - AA 61 mL/min Normal >60 [facility] Comment on above: Order Comment: 'TROP ' Serial specimen #1, #2 or #3: 1 Result Comment: Afri can Guamanian GFR Calc Performed By: #### L 500.2500, L100.0100, L501.4020, L503.6005, M200.1000 ####[facility] [address] [place], [address] GAP 6 Normal 5-15 [facility] Comment on above: Order Comment: 'TROP ' Serial specimen #1, #2 or #3: 1 Performed By: #### L 500.2500, L100.0100, L501.4020, L503.6005, M200.1000 ####[facility] [address] [place], [address] GFR/1.73 sq M.predicted among non-blacks MDRD (S/P/Bld) [Vol rate/Area] 50 mL/min/{1.73_m2} Low >60 [facility] Comment on above: Order Comment: 'TROP ' Serial specimen #1, #2 or #3: 1 Result Comment: Non- GFR Calc Performed By: #### L 500.2500, L100.0100, L501.4020, L503.6005, M200.1000 ####[facility] [address] [place], [address] Glucose [Mass/Vol] 130 mg/dL High 74-106 [facility] Comment on above: Order Comment: 'TROP ' Serial specimen #1, #2 or #3: 1 Result Comment: Fast ing Glucose result greater than or equal to 126 mg/dLsuggests DIABETES MELLITUS per A.D.A. criteria. Performed By: #### L 500.2500, L100.0100, L501.4020, L503.6005, M200.1000 ####[facility] [address] [place], [address] Potassium [Moles/Vol] 2.8 mmol/L Low 3.5-5.1 [facility] Comment on above: Order Comment: 'TROP ' Serial specimen #1, #2 or #3: 1 Performed By: #### L 500.2500, L100.0100, L501.4020, L503.6005, M200.1000 ####[facility] [address] [place], [address] Sodium [Moles/Vol] 140 mmol/L Normal 136-145 [facility] Comment on above: Order Comment: 'TROP ' Serial specimen #1, #2 or #3: 1 Performed By: #### L 500.2500, L100.0100, L501.4020, L503.6005, M200.1000 ####[facility] [address] [place], [address] Urea nitrogen [Mass/Vol] 27 mg/dL High 7-18 [facility] Comment on above: Order Comment: 'TROP ' Serial specimen #1, #2 or #3: 1 Performed By: #### L 500.2500, L100.0100, L501.4020, L503.6005, M200.1000 ####[facility] [address] [place], [address] Brain/Head without Contrasto n --2023 Brain/Head without Contrast Normal [facility] CBC W/Diff, Automatedon 11-3 0-2023 Absolute Lymph 0.66 X10 3/uL Low 0.83-4.51 [facility] Comment on above: Performed By: #### L 500.2500, L100.0100, L501.4020, L503.6005, M200.1000 ####[facility] [address] [place], [address] Absolute Neut 3.8 X10 3/uL Normal 2.0-7.7 [facility] Comment on above: Performed By: #### L 500.2500, L100.0100, L501.4020, L503.6005, M200.1000 ####[facility] [address] [place], [address] Basophils/100 WBC (Bld) 0.6 % Normal 0-1 [facility] Comment on above: Performed By: #### L 500.2500, L100.0100, L501.4020, L503.6005, M200.1000 ####[facility] [address] [place], [address] Eosinophils/100 WBC (Bld) 2.8 % Normal 0-5 [facility] Comment on above: Performed By: #### L 500.2500, L100.0100, L501.4020, L503.6005, M200.1000 ####[facility] [address] [place], [address] Erythrocyte distribution width (RBC) [Ratio] 14.3 % Normal 11.6-14.6 [facility] Comment on above: Performed By: #### L 500.2500, L100.0100, L501.4020, L503.6005, M200.1000 ####[facility] [address] [place], [address] Hematocrit (Bld) [Volume fraction] 35.1 % Low 40-54 [facility] Comment on above: Performed By: #### L 500.2500, L100.0100, L501.4020, L503.6005, M200.1000 ####[facility] [address] [place], [address] Hemoglobin (Bld) [Mass/Vol] 11.7 g/dL Low 13.0-16.5 [facility] Comment on above: Performed By: #### L 500.2500, L100.0100, L501.4020, L503.6005, M200.1000 ####[facility] [address] [place], [address] IG% 0.400 Normal 0.0-0.9 [facility] Comment on above: Result Comment: IG% - Immature Granulocytes (promyelocytes, myelocytes andmetamyelocytes) > 1% indicates that a LEFT SHIFT is Present. Performed By: #### L 500.2500, L100.0100, L501.4020, L503.6005, M200.1000 ####[facility] [address] [place], [address] Lymphocytes/100 WBC (Bld) 12.4 % Low 19-41 [facility] Comment on above: Performed By: #### L 500.2500, L100.0100, L501.4020, L503.6005, M200.1000 ####[facility] [address] [place], [address] MCH (RBC) [Entitic mass] 29.8 pg Normal 27.0-32.0 [facility] Comment on above: Performed By: #### L 500.2500, L100.0100, L501.4020, L503.6005, M200.1000 ####[facility] [address] [place], [address] MCHC (RBC) [Mass/Vol] 33.3 g/dL Normal 32-36 [facility] Comment on above: Performed By: #### L 500.2500, L100.0100, L501.4020, L503.6005, M200.1000 ####[facility] [address] [place], [address] MCV (RBC) [Entitic vol] 89.3 fL Normal 80-94 [facility] Comment on above: Performed By: #### L 500.2500, L100.0100, L501.4020, L503.6005, M200.1000 ####[facility] [address] [place], [address] Monocytes/100 WBC (Bld) 11.7 % High 0-10 [facility] Comment on above: Performed By: #### L 500.2500, L100.0100, L501.4020, L503.6005, M200.1000 ####[facility] [address] [place], [address] Neutrophils/100 WBC (Bld) 72.1 % High 47-70 [facility] Comment on above: Performed By: #### L 500.2500, L100.0100, L501.4020, L503.6005, M200.1000 ####[facility] [address] [place], [address] Nucleated RBC (Bld) [#/Vol] 0 10*3/uL Normal 0-5 [facility] Comment on above: Performed By: #### L 500.2500, L100.0100, L501.4020, L503.6005, M200.1000 ####[facility] [address] [place], [address] Platelet mean volume (Bld) [Entitic vol] 10.3 fL Normal 6.2-12.0 [facility] Comment on above: Performed By: #### L 500.2500, L100.0100, L501.4020, L503.6005, M200.1000 ####[facility] [address] [place], [address] Platelets (Bld) [#/Vol] 133 10*3/uL Low 150-450 [facility] Comment on above: Performed By: #### L 500.2500, L100.0100, L501.4020, L503.6005, M200.1000 ####[facility] [address] [place], [address] RBC (Bld) [#/Vol] 3.93 10*6/uL Low 4.6-6.2 [facility] Comment on above: Performed By: #### L 500.2500, L100.0100, L501.4020, L503.6005, M200.1000 ####[facility] [address] [place], [address] RDW SD 47.2 fl High 35.1-43.9 [facility] Comment on above: Performed By: #### L 500.2500, L100.0100, L501.4020, L503.6005, M200.1000 ####[facility] [address] [place], [address] WBC (Bld) [#/Vol] 5.3 10*3/uL Normal 4.4-11.0 [facility] Comment on above: Performed By: #### L 500.2500, L100.0100, L501.4020, L503.6005, M200.1000 ####[facility] [address] [place], [address] Chest 1 View (Portable)on Chest 1 View (Portable) Normal [facility] Chest without Contraston Chest without Contrast Normal [facility] Echo Complete W/ Contraston 02-12-2024 Echo Complete W/ Contrast Normal [facility] Emergency Department Summary on 02-12-2024 Emergency Department Summary Normal [facility] H AND P Exam - Hospitaliston 02-12-2024 H&P Exam - Hospitalist Normal [facility] L501.4020on 02-12-2024 TROPONIN-I HS 17 pg/mL Normal 3.0-78.0 [facility] Comment on above: Order Comment: 'TROP ' Serial specimen #1, #2 or #3: 1 Result Comment: Plea se Note: New Test Units and Gender Specific Reference Ranges. For more information see Policy Stat Procedure Mar Lin High Sensitivity Troponin (TNIH) and attachments. Performed By: #### L 500.2500, L100.0100, L501.4020, L503.6005, M200.1000 ####[facility] [address] [place], [address] Lactic Acidon 02-12-2024 Lactate [Moles/Vol] 1.4 mmol/L Normal 0.4-1.9 [facility] Comment on above: Order Comment: Y Performed By: #### L 500.2500, L100.0100, L501.4020, L503.6005, M200.1000 ####[facility] [address] [place], [address] M100.678on 02-12-2024 M100.678 SARS-CoV-2 (COVID 19 ) Negative INFLUENZA A Negative INFLUENZA B Negative RSV PCR Negative Normal [facility] Comment on above: Performed By: #### M 100.678, L400.0001 ####[facility] [address] [place], [address] Urinalysis, Completeon 02-11 WBC 0-5 SEEN Normal 0-5 [facility] Comment on above: Order Comment: CLEAN CATCH Performed By: #### M 100.678, L400.0001 ####[facility] [address] [place], [address] BACTERIA 0 SEEN Normal None Seen [facility] Comment on above: Order Comment: CLEAN CATCH Performed By: #### M 100.678, L400.0001 ####[facility] [address] [place], [address] EPI,SQUAMOUS 0 SEEN Normal 0-5 [facility] Comment on above: Order Comment: CLEAN CATCH Performed By: #### M 100.678, L400.0001 ####[facility] [address] [place], [address] Mucus Ql (Urine sed) 0 SEEN Normal [facility] Comment on above: Order Comment: CLEAN CATCH Performed By: #### M 100.678, L400.0001 ####[facility] [address] [place], [address] RBC 0 SEEN Normal 0-5 [facility] Comment on above: Order Comment: CLEAN CATCH Performed By: #### M 100.678, L400.0001 ####[facility] [address] [place], [address] No Panel Informationon 02-08 Culture Urine >100,000 cfu/ml Mult iple bacterial morphotypes present. Probable Contamination. Suggest recollection if clinically indicated. [facility] Work Phone: Initial Evaluation (3) - PTo n 02-01-2024 Initial Evaluation (3) - PT Normal [facility] SP/HP.SPREEVon 12-29-2023 SP/HP.SPREEV Normal [facility] Cardiology Visit Reporton Cardiology Visit Report Normal [facility] No Panel Informationon 11-24 Culture Wound Aerobe Few Normal skin saroj ra present. Sensitivity testing not indicated. [facility] Work Phone: GS No organisms seen. [facility] Work Phone: TOBRAMYCIN:SUSC:PT:ISOLATE:O RDQN:MICon 11-25-2023 Tobramycin DEV [Susc] >100,000 cfu/ml Gr am Negative Rods Unable to further ID [facility] Work Phone: Tobramycin DEV [Susc]on 11-13 Gram Negative Rods Gram Negative Rods [facility] Work Phone: CEFEPIME:SUSC:PT:ISOLATE:ORD QN:MICon 09-28-2023 Cefepime DEV [Susc] 50,000 - 100,000 cfu /ml Pseudomonas aeruginosa [facility] Work Phone: Cefepime DEV [Susc]on 2023 Pseudomonas aeruginosa Pseudomonas aeruginosa [facility] Work Phone: XR CLAVICLE LEFTon 4 XR CLAVICLE LEFT ORIGINAL EXAMINATION: XRAY VIEWS OF THE LEFT CLAVICLE TECHNIQUE: Two views of the left clavicle were performed. COMPARISON: None. HISTORY: ORDERING SYSTEM PROVIDED HISTORY: Reason for Exam: Fall on 09/03/2023 resulting in injury to the left clavicle FINDINGS: A nondisplaced fracture the distal left clavicle approximately 2 cm proximal to the acromioclavicular joint is seen. The acromioclavicular, coracoclavicular and glenohumeral joints are preserved. Undersurface enthesopathy changes of the distal clavicle extend into the subacromial space. Cervical through upper thoracic posterior instrumentation with bilateral transpedicular screws and vertical stabilization rods is noted. An incompletely imaged left subclavian pacemaker/ICD is seen. IMPRESSION: Nondisplaced fracture of the distal left clavicle approximately 2 cm proximal to the acromioclavicular joint. Interpreted by: Mallory Lomax MD Preliminary Report By: Mallory Lomax MD Electronically signed By Mallory Lomax MD Dictated Date: 09/08/2023 11:58:39 AM Prelim Date: 09/08/2023 12:00:24 PM Sign Date: 09/08/2023 12:00:24 PM Ordering Provider: MALLORY Sibley [facility] ([place] AMIKACIN:SUSC:PT:ISOLATE:ORD QN:MICon 03-25-2023 Amikacin DEV [Susc] >100,000 cfu/ml Citrobacter koseri >100,000 cfu/ml Group B Beta Hemolytic Strep (Strep agalactiae) Sensitivity testing is not recommended for one of the following reasons: 1. Established susceptibility patterns are available or 2. Interpretative criteria are not available. [facility] Work Phone: Amikacin DEV [Susc]on 2023 Citrobacter koseri Citrobacter koseri [facility] Work Phone: Basophil percentageOrdered B y: Alessandra Melchor on 01-29-2023 Chloride [Moles/Vol] 110 mmol/L 98-107 [facility] Glucose [Mass/Vol] 114 mg/dL 74-106 [facility] Comment on above: Fasting Glucose resu lt from 100 to 125 mg/dL suggests IMPAIRED HOMEOSTASIS per A.D.A. criteria. Potassium [Moles/Vol] 3.7 mmol/L 3.5-5.1 [facility] Sodium [Moles/Vol] 141 mmol/L 136-145 [facility] Laboratory - Chemistry and C hemistry - challengeOrdered By: Alessandra Melchor on 01-29-2023 CO2 [Moles/Vol] 26.0 mmol/L 21.0-32.0 [facility] Urea nitrogen/Creatinine [Mass ratio] 13.3 mg/mg 10-20 [facility] No Panel InformationOrdered By: Alessandra Melchor on 01-29-2023 Estimated GFR (MDRD) Amer 76 mL/min >60 [facility] Comment on above: GFR Calc Estimated GFR (MDRD) Non-Af Amer 63 mL/min >60 [facility] Comment on above: Non- GFR Calc Prostate Specific Antigen Total 3.43 ng/mL 0.0-4.0 [facility] Comment on above: This test was perfor med using the TPSA assay method for theIntrohive chemistry system. Values obtained with differentassay methods cannot be used interchangably.When changing PSA assays in the course of monitoring apatient, additional sequential testing should be carriedout to confirm baseline values. Urine Microalbumin/Creatinine Ratio 69.2 mg/g CRE <30 [facility] Serum or plasma calcium nicole urement (mass/volume)Ordered By: Alessandra Melchor on 01-29-2023 Calcium [Mass/Vol] 8.7 mg/dL 8.5-10.1 [facility] Serum or plasma creatinine m easurement (mass/volume)Ordered By: Alessandra Melchor on 01-29-2023 Creatinine [Mass/Vol] 1.20 mg/dL 0.70-1.30 [facility] Comment on above: The validity of the calculated GFR & GFRAA in patients over 70 years has not been determined. Clinical correlation is essential. Serum or plasma urea nitroge n measurement (mass/volume)Ordered By: Alessandra Melchor on 01-29-2023 Urea nitrogen [Mass/Vol] 16 mg/dL 7-18 [facility] Thin prep Papanicolaou smear with manual screeningOrdered By: Alessandra Melchor on 01-29-2023 Thin prep Papanicolaou smear with manual screening 5 5-15 [facility] Thin prep Papanicolaou smear with manual screening 79.6 mg/L NO RANGE EST. [facility] Urine creatinine measurement (mass/volume)Ordered By: Alessandra Melchor on 01-29-2023 Creatinine (U) [Mass/Vol] 115.00 mg/dL NO RANGE EST. [facility] Absolute lymphocyte countOrd ered By: Alessandra Melchor on 11-04-2022 Lymphocytes Auto (Unsp spec) [#/Vol] 1.35 10*3/uL 0.83-4.51 [facility] Basophil percentageOrdered B y: Alessandra Melchor on 11-04-2022 Basophils/100 WBC (Bld) 0.4 % 0-1 [facility] Chloride [Moles/Vol] 110 mmol/L 98-107 [facility] Eosinophils/100 WBC (Bld) 1.3 % 0-5 [facility] Glucose [Mass/Vol] 87 mg/dL 74-106 [facility] Neutrophils (Bld) [#/Vol] 5.2 10*3/uL 2.0-7.7 [facility] Neutrophils/100 WBC (Bld) 71.8 % 47-70 [facility] Potassium [Moles/Vol] 3.8 mmol/L 3.5-5.1 [facility] Sodium [Moles/Vol] 143 mmol/L 136-145 [facility] WBC (Bld) [#/Vol] 7.2 10*3/uL 4.4-11.0 [facility] Blood erythrocytes count (nu mber/volume)Ordered By: Alessandra Melchor on 11-04-2022 RBC (Bld) [#/Vol] 3.90 10*6/uL 4.6-6.2 [facility] Blood hemoglobin measurement (mass/volume)Ordered By: Alessandra eMlchor on 11-04-2022 Hemoglobin (Bld) [Mass/Vol] 11.6 g/dL 13.0-16.5 [facility] Blood lymphocytes/100 leukoc ytesOrdered By: Alessandra Melchor on 11-04-2022 Lymphocytes/100 WBC (Bld) 18.8 % 19-41 [facility] Blood monocytes/100 leukocyt esOrdered By: Alessandra Melchor on 11-04-2022 Monocytes/100 WBC (Bld) 7.1 % 0-10 [facility] Blood platelet mean volumeOr dered By: Alessandra Melchor on 11-04-2022 Platelet mean volume (Bld) [Entitic vol] 9.8 fL 6.2-12.0 [facility] Determination of erythrocyte mean corpuscular volume (MCV)Ordered By: Alessandra Melchor on 11-04-2022 MCV (RBC) [Entitic vol] 93.8 fL 80-94 [facility] Hematocrit Auto (Bld) [Volum e fraction]Ordered By: Alessandra Melchor on 11-04-2022 Hematocrit (Bld) [Volume fraction] 36.6 % 40-54 [facility] Laboratory - Chemistry and C hemistry - challengeOrdered By: Alessandra Melchor on 11-04-2022 CO2 [Moles/Vol] 29.0 mmol/L 21.0-32.0 [facility] Natriuretic peptide B (Bld) [Mass/Vol] 316.3 pg/mL 0-100 [facility] Urea nitrogen/Creatinine [Mass ratio] 19.8 mg/mg 10-20 [facility] Laboratory - Hematology and Cell countsOrdered By: Alessandra Melchor on 11-04-2022 Erythrocyte distribution width (RBC) [Entitic vol] 54.3 fL 35.1-43.9 [facility] Erythrocyte distribution width (RBC) [Ratio] 15.9 % 11.6-14.6 [facility] Immature granulocytes/100 WBC (Bld) 0.600 % 0.0-0.9 [facility] Comment on above: IG% - Immature Granu locytes (promyelocytes, myelocytes and metamyelocytes) > 1% indicates that a LEFT SHIFT is Present. MCH (RBC) [Entitic mass] 29.7 pg 27.0-32.0 [facility] Nucleated RBC/100 WBC (Bld) [Ratio] 0 % 0-5 [facility] MCHC Auto (RBC) [Mass/Vol]Or dered By: Alessandra Melchor on 11-04-2022 MCHC (RBC) [Mass/Vol] 31.7 g/dL 32-36 [facility] No Panel InformationOrdered By: Alessandra Melchor on 11-04-2022 Estimated GFR (MDRD) Amer 83 mL/min >60 [facility] Comment on above: GFR Calc Estimated GFR (MDRD) Non-Af Amer 68 mL/min >60 [facility] Comment on above: Non- GFR Calc Platelets bldOrdered By: Samuel Melchor on 11-04-2022 Platelets (Bld) [#/Vol] 176 10*3/uL 150-450 [facility] Serum or plasma calcium nicole urement (mass/volume)Ordered By: Alessandra Melchor on 11-04-2022 Calcium [Mass/Vol] 9.0 mg/dL 8.5-10.1 [facility] Serum or plasma creatinine m easurement (mass/volume)Ordered By: Alessandra Melchor on 11-04-2022 Creatinine [Mass/Vol] 1.11 mg/dL 0.70-1.30 [facility] Comment on above: The validity of the calculated GFR & GFRAA in patients over 70 years has not been determined. Clinical correlation is essential. Serum or plasma urea nitroge n measurement (mass/volume)Ordered By: Alessandra Melchor on 11-04-2022 Urea nitrogen [Mass/Vol] 22 mg/dL 7-18 [facility] Thin prep Papanicolaou smear with manual screeningOrdered By: Alessandra Melchor on 11-04-2022 Thin prep Papanicolaou smear with manual screening 4 5-15 [facility] TOBRAMYCIN:SUSC:PT:ISOLATE:O RDQN:MICon 08-31-2022 Tobramycin DEV [Susc] 10,000 - 50,000 cf u/ml Pseudomonas aeruginosa [facility] Work Phone: Tobramycin DEV [Susc]on 08-13 Pseudomonas aeruginosa Pseudomonas aeruginosa [facility] Work Phone: Absolute lymphocyte countOrd ered By: Dr. Cantu on 08-28-2022 Lymphocytes Auto (Unsp spec) [#/Vol] 0.74 10*3/uL 0.83-4.51 [facility] Basophil percentageOrdered B y: Dr. Cantu on 08-28-2022 Basophils/100 WBC (Bld) 0.2 % 0-1 [facility] Chloride [Moles/Vol] 106 mmol/L 98-107 [facility] Eosinophils/100 WBC (Bld) 0.8 % 0-5 [facility] Glucose [Mass/Vol] 122 mg/dL 74-106 [facility] Comment on above: Fasting Glucose resu lt from 100 to 125 mg/dL suggests IMPAIRED HOMEOSTASIS per A.D.A. criteria. Neutrophils (Bld) [#/Vol] 12.2 10*3/uL 2.0-7.7 [facility] Neutrophils/100 WBC (Bld) 85.6 % 47-70 [facility] Potassium [Moles/Vol] 3.3 mmol/L 3.5-5.1 [facility] Sodium [Moles/Vol] 139 mmol/L 136-145 [facility] WBC (Bld) [#/Vol] 14.2 10*3/uL 4.4-11.0 [facility] Blood erythrocytes count (nu mber/volume)Ordered By: Dr. Cantu on 08-28-2022 RBC (Bld) [#/Vol] 4.29 10*6/uL 4.6-6.2 [facility] Blood hemoglobin measurement (mass/volume)Ordered By: Dr. Cantu on 08-28-2022 Hemoglobin (Bld) [Mass/Vol] 12.8 g/dL 13.0-16.5 [facility] Blood lymphocytes/100 leukoc ytesOrdered By: Dr. Cantu on 08-28-2022 Lymphocytes/100 WBC (Bld) 5.2 % 19-41 [facility] Blood monocytes/100 leukocyt esOrdered By: Dr. Cantu on 08-28-2022 Monocytes/100 WBC (Bld) 7.7 % 0-10 [facility] Blood platelet mean volumeOr dered By: Dr. Cantu on 08-28-2022 Platelet mean volume (Bld) [Entitic vol] 10.6 fL 6.2-12.0 [facility] Determination of erythrocyte mean corpuscular volume (MCV)Ordered By: Dr. Cantu on 08-28-2022 MCV (RBC) [Entitic vol] 90.9 fL 80-94 [facility] Hematocrit Auto (Bld) [Volum e fraction]Ordered By: Dr. Cantu on 08-28-2022 Hematocrit (Bld) [Volume fraction] 39.0 % 40-54 [facility] Laboratory - Chemistry and C hemistry - challengeOrdered By: Dr. Cantu on 08-28-2022 CO2 [Moles/Vol] 24.0 mmol/L 21.0-32.0 [facility] Urea nitrogen/Creatinine [Mass ratio] 32.0 mg/mg 10-20 [facility] Laboratory - Hematology and Cell countsOrdered By: Dr. Cantu on 08-28-2022 Erythrocyte distribution width (RBC) [Entitic vol] 49.2 fL 35.1-43.9 [facility] Erythrocyte distribution width (RBC) [Ratio] 14.8 % 11.6-14.6 [facility] Immature granulocytes/100 WBC (Bld) 0.500 % 0.0-0.9 [facility] Comment on above: IG% - Immature Granu locytes (promyelocytes, myelocytes and metamyelocytes) > 1% indicates that a LEFT SHIFT is Present. MCH (RBC) [Entitic mass] 29.8 pg 27.0-32.0 [facility] Nucleated RBC/100 WBC (Bld) [Ratio] 0 % 0-5 [facility] MCHC Auto (RBC) [Mass/Vol]Or dered By: Dr. Cantu on 08-28-2022 MCHC (RBC) [Mass/Vol] 32.8 g/dL 32-36 [facility] No Panel InformationOrdered By: Dr. Cantu on 08-28-2022 Estimated Creatinine Clearance Calc 74.81 ml/min [facility] Estimated GFR (MDRD) Amer 113 mL/min >60 [facility] Comment on above: GFR Calc Estimated GFR (MDRD) Non-Af Amer 94 mL/min >60 [facility] Comment on above: Non- GFR Calc Platelets bldOrdered By: Dr. Cantu on 08-28-2022 Platelets (Bld) [#/Vol] 191 10*3/uL 150-450 [facility] Serum or plasma calcium nicole urement (mass/volume)Ordered By: Dr. Cantu on 08-28-2022 Calcium [Mass/Vol] 9.1 mg/dL 8.5-10.1 [facility] Serum or plasma creatinine m easurement (mass/volume)Ordered By: Dr. Cantu on 08-28-2022 Creatinine [Mass/Vol] 0.84 mg/dL 0.70-1.30 [facility] Comment on above: The validity of the calculated GFR & GFRAA in patients over 70 years has not been determined. Clinical correlation is essential. Serum or plasma urea nitroge n measurement (mass/volume)Ordered By: Dr. Cantu on 08-28-2022 Urea nitrogen [Mass/Vol] 27 mg/dL 7-18 [facility] Thin prep Papanicolaou smear with manual screeningOrdered By: Dr. Cantu on 08-28-2022 Thin prep Papanicolaou smear with manual screening 9 - [facility] Culture, urineOrdered By: Dr Antonio Zavala on 08-27-2022 Bacteria identified Cx Nom (U) Citrobacter koseri [facility] Bacteria identified Cx Nom (U) Streptococcus agalactiae (B) [facility] Laboratory - Chemistry and C hemistry - challengeOrdered By: Dr. Cantu on 08-27-2022 Lipase [Catalytic activity/Vol] 72 U/L 13-75 [facility] Comment on above: Please note:LIPASE r evised reference range effective 22. New Lipase methodology. Expected to produce lower values than the previous assay method. NEW Reference Range: 13 - 75 U/L Basophil percentageOrdered B y: Dr. Cantu on 08-26-2022 Bilirubin [Mass/Vol] 1.70 mg/dL 0.20-1.00 [facility] Comment on above: For patients on eltr ombopag therapy, use of Dimension Mar Lin TBIL is not recommended. Protein [Mass/Vol] 6.4 g/dL 6.4-8.2 [facility] Direct bilirubinOrdered By: Dr. Cantu on 08-26-2022 Bilirubin.direct [Mass/Vol] 0.90 mg/dL 0.00-0.30 [facility] Laboratory - Chemistry and C hemistry - challengeOrdered By: Dr. Cantu on 08-26-2022 ALP [Catalytic activity/Vol] 89 U/L 45-117 [facility] ALT [Catalytic activity/Vol] 128 U/L 16-61 [facility] Globulin (S) [Mass/Vol] 3.5 g/dL 2.2-4.2 [facility] Serum or plasma albumin nicole urement (mass/volume)Ordered By: Dr. Cantu on 08-26-2022 Albumin [Mass/Vol] 2.9 g/dL 3.2-5.0 [facility] Thin prep Papanicolaou smear with manual screeningOrdered By: Dr. Cantu on 08-26-2022 Thin prep Papanicolaou smear with manual screening 41 U/L 15-37 [facility] Basophil percentageOrdered B y: Dr. Zavala on 08-25-2022 Lactate [Moles/Vol] 1.0 mmol/L 0.4-2.0 [facility] Basophil percentage >100 SEEN /hpf 0-5 [facility] Bilirubin Test strip Ql (U)O rdered By: Dr. Zavala on 08-25-2022 Bilirubin Ql (U) 1 mg/dL Negative [facility] Comment on above: COLOR OF URINE MAY A FFECT DIPSTICK RESULTS. Culture, urineOrdered By: Terry Zavala on 08-25-2022 Bacteria identified Cx Nom (U) Citrobacter koseri [facility] Bacteria identified Cx Nom (U) Streptococcus agalactiae (B) [facility] Ketones Test strip Ql (U)Ord ered By: Dr. Zavala on 08-25-2022 Ketones Ql (U) 5 mg/dl Negative [facility] Laboratory - Microbiology an d Antimicrobial susceptibilityOrdered By: Juaquin Zavala on 08-25-2022 Bacteria identified Cx Nom (Bld) No growth in 5 days. [facility] Mucus LM Ql (Urine sed)Order ed By: Dr. Zavala on 08-25-2022 Mucus Ql (Urine sed) 0 SEEN /hpf [facility] Nitrite Test strip Ql (U)Ord ered By: Dr. Zavala on 08-25-2022 Nitrite Ql (U) Positive Negative [facility] No Panel InformationOrdered By: Dr. Zavala on 08-25-2022 Troponin I High Sensitivity 11 pg/mL 3.0-78.0 [facility] Comment on above: Please Note: New Padmini t Units and Gender Specific Reference Ranges. For more information see Policy Stat Procedure Mar Lin High Sensitivity Troponin (TNIH) and attachments. Protein Test strip Ql (U)Ord ered By: Dr. Zavala on 08-25-2022 Protein Ql (U) 30 mg/dl Negative [facility] Serum or plasma albumin/glob ulin mass ratioOrdered By: Dr. Zavala on 08-25-2022 Albumin/Globulin [Mass ratio] 1.0 {ratio} 0.9-2.4 [facility] Squamous epithelial cells de tection in urine sediment by light microscopyOrdered By: Dr. Zavala on 08-25-2022 Epithelial cells.squamous LM Ql (Urine sed) 0-5 SEEN /hpf 0-5 [facility] Urine blood detectionOrdered By: Dr. Zavala on 08-25-2022 RBC Ql (U) 150 /ul Negative [facility] RBC Ql (U) 0-5 SEEN /hpf 0-5 [facility] Urine clarityOrdered By: Dr. Zavala on 08-25-2022 Clarity (U) Cloudy Clear [facility] Urine color determinationOrd ered By: Dr. Zavala on 08-25-2022 Color (U) Yellow Yellow [facility] Urine glucose detectionOrder ed By: Dr. Zavala on 08-25-2022 Glucose Ql (U) Normal mg/dl Normal [facility] Urine leukocyte esterase det ection by dipstickOrdered By: Dr. Zavala on 08-25-2022 Leukocyte esterase Test strip Ql (U) 500 /ul Negative [facility] Urine pHOrdered By: Dr. An estevez on 08-25-2022 pH (U) 6.0 [pH] 5.0 - 8.0 [facility] Urine sediment bacteria coun t by microscopy (number/high power field)Ordered By: Dr. Zavala on 08-25-2022 Bacteria LM.HPF (Urine sed) [#/Area] 1 /[HPF] None Seen [facility] Urine specific gravity measu rementOrdered By: Dr. Zavala on 08-25-2022 Specific gravity (U) [Rel density] 1.020 1.002-1.03 0 [facility] Urobilinogen Auto test strip Ql (U)Ordered By: Dr. 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 Probable Contamination. Suggest recollection if clinically indicated. [facility] Work Phone: Absolute lymphocyte counton 09-16-2021 Lymphocytes Auto (Unsp spec) [#/Vol] 1.03 10*3/uL 0.83-4.51 [facility] Work Phone: Basophil percentageon 2021 Basophils/100 WBC (Bld) 0.7 % 0-1 [facility] Work Phone: Chloride [Moles/Vol] 111 mmol/L 98-107 [facility]: Eosinophils/100 WBC (Bld) 2.2 % 0-5 [facility] Work Phone: Glucose [Mass/Vol] 92 mg/dL 74-106 [facility] Work Phone: Neutrophils (Bld) [#/Vol] 4.1 10*3/uL 2.0-7.7 [facility] Work Phone: Neutrophils/100 WBC (Bld) 70.6 % 47-70 [facility] Work Phone: Potassium [Moles/Vol] 3.7 mmol/L 3.5-5.1 [facility] Work Phone: Sodium [Moles/Vol] 140 mmol/L 136-145 [facility] Work Phone: WBC (Bld) [#/Vol] 5.9 10*3/uL 4.4-11.0 [facility] Work Phone: [phone] Blood erythrocytes count (nu mber/volume)on 09-16-2021 RBC (Bld) [#/Vol] 3.66 10*6/uL 4.6-6.2 [facility] Work Phone: Blood hemoglobin measurement (mass/volume)on 09-16-2021 Hemoglobin (Bld) [Mass/Vol] 11.2 g/dL 13.0-16.5 [facility] Work Phone: Blood lymphocytes/100 leukoc yteson 09-16-2021 Lymphocytes/100 WBC (Bld) 17.5 % 19-41 [facility] Work Phone: Blood monocytes/100 leukocyt eson 09-16-2021 Monocytes/100 WBC (Bld) 8.0 % 0-10 [facility] Work Phone: Blood platelet mean volumeon 09-16-2021 Platelet mean volume (Bld) [Entitic vol] 9.6 fL 6.2-12.0 [facility] Work Phone: Determination of erythrocyte mean corpuscular volume (MCV)on 09-16-2021 MCV (RBC) [Entitic vol] 93.2 fL 80-94 [facility] Work Phone: Hematocrit Auto (Bld) [Volum e fraction]on 09-16-2021 Hematocrit (Bld) [Volume fraction] 34.1 % 40-54 [facility] Work Phone: Laboratory - Chemistry and C hemistry - challengeon 09-16-2021 CO2 [Moles/Vol] 24.0 mmol/L 21.0-32.0 [facility] Work Phone: Urea nitrogen/Creatinine [Mass ratio] 26.7 mg/mg 10-20 [facility] Work Phone: Laboratory - Hematology and Cell countson 09-16-2021 Erythrocyte distribution width (RBC) [Entitic vol] 50.5 fL 35.1-43.9 [facility] Work Phone: Erythrocyte distribution width (RBC) [Ratio] 14.9 % 11.6-14.6 [facility] Work Phone: Immature granulocytes/100 WBC (Bld) 1.000 % 0.0-0.9 [facility] Work Phone: Comment on above: IG% - Immature Granu locytes (promyelocytes, myelocytes and metamyelocytes) > 1% indicates that a LEFT SHIFT is Present. MCH (RBC) [Entitic mass] 30.6 pg 27.0-32.0 [facility] Work Phone: Nucleated RBC/100 WBC (Bld) [Ratio] 0 % 0-5 [facility] Work Phone: MCHC Auto (RBC) [Mass/Vol]on 09-16-2021 MCHC (RBC) [Mass/Vol] 32.8 g/dL 32-36 [facility] Work Phone: No Panel Informationon 09-16 Estimated Creatinine Clearance Calc 61.75 ml/min [facility] Work Phone: Estimated GFR (MDRD) Amer 131 mL/min >60 [facility] Work Phone: Comment on above: GFR Calc Estimated GFR (MDRD) Non-Af Amer 108 mL/min >60 [facility] Work Phone: Comment on above: Non- GFR Calc Platelets bldon 09-16-2021 Platelets (Bld) [#/Vol] 178 10*3/uL 150-450 [facility] Work Phone: Serum or plasma calcium nicole urement (mass/volume)on 09-16-2021 Calcium [Mass/Vol] 9.0 mg/dL 8.5-10.1 [facility] Work Phone: Serum or plasma creatinine m easurement (mass/volume)on 09-16-2021 Creatinine [Mass/Vol] 0.75 mg/dL 0.70-1.30 [facility] Work Phone: Comment on above: The validity of the calculated GFR & GFRAA in patients over 70 years has not been determined. Clinical correlation is essential. Serum or plasma urea nitroge n measurement (mass/volume)on 09-16-2021 Urea nitrogen [Mass/Vol] 20 mg/dL 7-18 [facility] Work Phone: Thin prep Papanicolaou smear with manual screeningon 09-16-2021 Thin prep Papanicolaou smear with manual screening 5 5-15 [facility] Work Phone: Absolute lymphocyte counton 09-08-2021 Lymphocytes Auto (Unsp spec) [#/Vol] 0.72 10*3/uL 0.83-4.51 [facility] Work Phone: Basophil percentageon 2021 Basophils/100 WBC (Bld) 0.5 % 0-1 [facility] Work Phone: Chloride [Moles/Vol] 108 mmol/L 98-107 [facility] Work Phone: Eosinophils/100 WBC (Bld) 2.3 % 0-5 [facility] Work Phone: Glucose [Mass/Vol] 99 mg/dL 74-106 [facility] Work Phone: Neutrophils (Bld) [#/Vol] 6.4 10*3/uL 2.0-7.7 [facility] Work Phone: [phone] Neutrophils/100 WBC (Bld) 80.6 % 47-70 [facility] Work Phone: [phone] Potassium [Moles/Vol] 3.7 mmol/L 3.5-5.1 [facility] Work Phone: Sodium [Moles/Vol] 139 mmol/L 136-145 [facility] Work Phone: [phone] WBC (Bld) [#/Vol] 8.0 10*3/uL 4.4-11.0 [facility] Work Phone: [phone] Blood erythrocytes count (nu mber/volume)on 09-08-2021 RBC (Bld) [#/Vol] 3.72 10*6/uL 4.6-6.2 [facility] Work Phone: Blood hemoglobin measurement (mass/volume)on 09-08-2021 Hemoglobin (Bld) [Mass/Vol] 11.5 g/dL 13.0-16.5 [facility] Work Phone: [phone] Blood lymphocytes/100 leukoc yteson 09-08-2021 Lymphocytes/100 WBC (Bld) 9.0 % 19-41 [facility] Work Phone: [phone] Blood monocytes/100 leukocyt eson 09-08-2021 Monocytes/100 WBC (Bld) 7.3 % 0-10 [facility] Work Phone: Blood platelet mean volumeon 09-08-2021 Platelet mean volume (Bld) [Entitic vol] 9.8 fL 6.2-12.0 [facility] Work Phone: Determination of erythrocyte mean corpuscular volume (MCV)on 09-08-2021 MCV (RBC) [Entitic vol] 90.9 fL 80-94 [facility] Work Phone: Hematocrit Auto (Bld) [Volum e fraction]on 09-08-2021 Hematocrit (Bld) [Volume fraction] 33.8 % 40-54 [facility] Work Phone: Laboratory - Chemistry and C hemistry - challengeon 09-08-2021 CO2 [Moles/Vol] 23.0 mmol/L 21.0-32.0 [facility] Work Phone: Urea nitrogen/Creatinine [Mass ratio] 19.8 mg/mg 10-20 [facility] Work Phone: Laboratory - Hematology and Cell countson 09-08-2021 Erythrocyte distribution width (RBC) [Entitic vol] 51.3 fL 35.1-43.9 [facility] Work Phone: Erythrocyte distribution width (RBC) [Ratio] 15.2 % 11.6-14.6 [facility] Work Phone: Immature granulocytes/100 WBC (Bld) 0.300 % 0.0-0.9 [facility] Work Phone: Comment on above: IG% - Immature Granu locytes (promyelocytes, myelocytes and metamyelocytes) > 1% indicates that a LEFT SHIFT is Present. MCH (RBC) [Entitic mass] 30.9 pg 27.0-32.0 [facility] Work Phone: Nucleated RBC/100 WBC (Bld) [Ratio] 0 % 0-5 [facility] Work Phone: MCHC Auto (RBC) [Mass/Vol]on 09-08-2021 MCHC (RBC) [Mass/Vol] 34.0 g/dL 32-36 [facility] Work Phone: No Panel Informationon 09-08 Estimated Creatinine Clearance Calc 76.23 ml/min [facility] Work Phone: Estimated GFR (MDRD) Amer 119 mL/min >60 [facility] Work Phone: Comment on above: GFR Calc Estimated GFR (MDRD) Non-Af Amer 99 mL/min >60 [facility] Work Phone: Comment on above: Non- GFR Calc Platelets bldon 09-08-2021 Platelets (Bld) [#/Vol] 139 10*3/uL 150-450 [facility] Work Phone: Serum or plasma calcium nicole urement (mass/volume)on 09-08-2021 Calcium [Mass/Vol] 8.9 mg/dL 8.5-10.1 [facility] Work Phone: Serum or plasma creatinine m easurement (mass/volume)on 09-08-2021 Creatinine [Mass/Vol] 0.81 mg/dL 0.70-1.30 [facility] Work Phone: Comment on above: The validity of the calculated GFR & GFRAA in patients over 70 years has not been determined. Clinical correlation is essential. Serum or plasma urea nitroge n measurement (mass/volume)on 09-08-2021 Urea nitrogen [Mass/Vol] 16 mg/dL 7-18 [facility] Work Phone: Thin prep Papanicolaou smear with manual screeningon 09-08-2021 Thin prep Papanicolaou smear with manual screening 8 5-15 [facility] Work Phone: Absolute lymphocyte counton 09-07-2021 Lymphocytes Auto (Unsp spec) [#/Vol] 0.99 10*3/uL 0.83-4.51 [facility] Work Phone: Basophil percentageon 2021 Basophil percentage 25-50 SEEN /hpf 0-5 [facility] Work Phone: Basophils/100 WBC (Bld) 0.2 % 0-1 [facility] Work Phone: Chloride [Moles/Vol] 109 mmol/L 98-107 [facility]: Eosinophils/100 WBC (Bld) 0.9 % 0-5 [facility] Work Phone: Glucose [Mass/Vol] 155 mg/dL 74-106 [facility] Work Phone: Comment on above: Fasting Glucose resu lt greater than or equal to 126 mg/dL suggests DIABETES MELLITUS per A.D.A. criteria. Lactate [Moles/Vol] 1.2 mmol/L 0.4-2.0 [facility] Work Phone: Neutrophils (Bld) [#/Vol] 7.6 10*3/uL 2.0-7.7 [facility] Work Phone: [phone] Neutrophils/100 WBC (Bld) 79.5 % 47-70 [facility] Work Phone: [phone] Potassium [Moles/Vol] 3.8 mmol/L 3.5-5.1 [facility] Work Phone: [phone] Sodium [Moles/Vol] 139 mmol/L 136-145 [facility] Work Phone: [phone] WBC (Bld) [#/Vol] 9.6 10*3/uL 4.4-11.0 [facility] Work Phone: [phone] Bilirubin Test strip Ql (U)o n 09-07-2021 Bilirubin Ql (U) Negative Negative [facility] Work Phone: Blood erythrocytes count (nu mber/volume)on 09-07-2021 RBC (Bld) [#/Vol] 3.70 10*6/uL 4.6-6.2 [facility] Work Phone: Blood hemoglobin measurement (mass/volume)on 09-07-2021 Hemoglobin (Bld) [Mass/Vol] 11.3 g/dL 13.0-16.5 [facility] Work Phone: Blood lymphocytes/100 leukoc yteson 09-07-2021 Lymphocytes/100 WBC (Bld) 10.4 % 19-41 [facility] Work Phone: Blood monocytes/100 leukocyt eson 09-07-2021 Monocytes/100 WBC (Bld) 8.5 % 0-10 [facility] Work Phone: Blood platelet mean volumeon 09-07-2021 Platelet mean volume (Bld) [Entitic vol] 10.0 fL 6.2-12.0 [facility] Work Phone: Determination of erythrocyte mean corpuscular volume (MCV)on 09-07-2021 MCV (RBC) [Entitic vol] 93.5 fL 80-94 [facility] Work Phone: [phone] Hematocrit Auto (Bld) [Volum e fraction]on 09-07-2021 Hematocrit (Bld) [Volume fraction] 34.6 % 40-54 [facility] Work Phone: Ketones Test strip Ql (U)on 09-07-2021 Ketones Ql (U) Negative Negative [facility] Work Phone: Laboratory - Chemistry and C hemistry - challengeon 09-07-2021 CO2 [Moles/Vol] 25.0 mmol/L 21.0-32.0 [facility] Work Phone: Urea nitrogen/Creatinine [Mass ratio] 19.9 mg/mg 10-20 [facility] Work Phone: Laboratory - Hematology and Cell countson 09-07-2021 Erythrocyte distribution width (RBC) [Entitic vol] 53.1 fL 35.1-43.9 [facility] Work Phone: Erythrocyte distribution width (RBC) [Ratio] 15.4 % 11.6-14.6 [facility] Work Phone: Immature granulocytes/100 WBC (Bld) 0.500 % 0.0-0.9 [facility] Work Phone: Comment on above: IG% - Immature Granu locytes (promyelocytes, myelocytes and metamyelocytes) > 1% indicates that a LEFT SHIFT is Present. MCH (RBC) [Entitic mass] 30.5 pg 27.0-32.0 [facility] Work Phone: Nucleated RBC/100 WBC (Bld) [Ratio] 0 % 0-5 [facility] Work Phone: MCHC Auto (RBC) [Mass/Vol]on 09-07-2021 MCHC (RBC) [Mass/Vol] 32.7 g/dL 32-36 [facility] Work Phone: Mucus LM Ql (Urine sed)on Mucus Ql (Urine sed) 0 SEEN /hpf [facility] Work Phone: Nitrite Test strip Ql (U)on 09-07-2021 Nitrite Ql (U) Negative Negative [facility] Work Phone: No Panel Informationon 09-07 Estimated Creatinine Clearance Calc 68.61 ml/min [facility] Work Phone: Estimated GFR (MDRD) Amer 105 mL/min >60 [facility] Work Phone: Comment on above: GFR Calc Estimated GFR (MDRD) Non-Af Amer 87 mL/min >60 [facility] Work Phone: Comment on above: Non- GFR Calc Platelets bldon 09-07-2021 Platelets (Bld) [#/Vol] 136 10*3/uL 150-450 [facility] Work Phone: Protein Test strip Ql (U)on 09-07-2021 Protein Ql (U) 15 mg/dl Negative [facility] Work Phone: Serum or plasma calcium nicole urement (mass/volume)on 09-07-2021 Calcium [Mass/Vol] 8.9 mg/dL 8.5-10.1 [facility] Work Phone: Serum or plasma creatinine m easurement (mass/volume)on 09-07-2021 Creatinine [Mass/Vol] 0.90 mg/dL 0.70-1.30 [facility] Work Phone: Comment on above: The validity of the calculated GFR & GFRAA in patients over 70 years has not been determined. Clinical correlation is essential. Serum or plasma urea nitroge n measurement (mass/volume)on 09-07-2021 Urea nitrogen [Mass/Vol] 18 mg/dL 7-18 [facility] Work Phone: Squamous epithelial cells de tection in urine sediment by light microscopyon 09-07-2021 Epithelial cells.squamous LM Ql (Urine sed) 0 SEEN /hpf 0-5 [facility] Work Phone: Thin prep Papanicolaou smear with manual screeningon 09-07-2021 Thin prep Papanicolaou smear with manual screening 5 5-15 [facility] Work Phone: Urine blood detectionon 08-14 RBC Ql (U) 50 /ul Negative [facility] Work Phone: RBC Ql (U) 5-10 SEEN /hpf 0-5 [facility] Work Phone: Urine clarityon 09-07-2021 Clarity (U) Sl. Cloudy Clear [facility] Work Phone: Urine color determinationon 09-07-2021 Color (U) Yellow Yellow [facility] Work Phone: Urine glucose detectionon Glucose Ql (U) Normal mg/dl Normal [facility] Work Phone: Urine leukocyte esterase det ection by dipstickon 09-07-2021 Leukocyte esterase Test strip Ql (U) 500 /ul Negative [facility] Work Phone: Urine pHon 09-07-2021 pH (U) 7.0 [pH] 5.0 - 8.0 [facility] Work Phone: Urine sediment bacteria coun t by microscopy (number/high power field)on 09-07-2021 Bacteria LM.HPF (Urine sed) [#/Area] 0 /[HPF] None Seen [facility] Work Phone: Urine specific gravity measu rementon 09-07-2021 Specific gravity (U) [Rel density] 1.010 1.002-1.03 0 [facility] Work Phone: Urobilinogen Auto test strip Ql (U)on 09-07-2021 Urobilinogen Ql (U) 1 mg/dl Normal [facility] Work Phone: Basophil percentageon 2021 Basophil percentage 50-100 SEEN /hpf 0-5 [facility] Work Phone: Bilirubin Test strip Ql (U)o n 09-06-2021 Bilirubin Ql (U) Negative Negative [facility] Work Phone: Ketones Test strip Ql (U)on 09-06-2021 Ketones Ql (U) 5 mg/dl Negative [facility] Work Phone: Mucus LM Ql (Urine sed)on Mucus Ql (Urine sed) 0 SEEN /hpf [facility] Work Phone: Nitrite Test strip Ql (U)on 09-06-2021 Nitrite Ql (U) Negative Negative [facility] Work Phone: Protein Test strip Ql (U)on 09-06-2021 Protein Ql (U) 30 mg/dl Negative [facility] Work Phone: Squamous epithelial cells de tection in urine sediment by light microscopyon 09-06-2021 Epithelial cells.squamous LM Ql (Urine sed) 0-5 SEEN /hpf 0-5 [facility] Work Phone: Urine blood detectionon 08-14 RBC Ql (U) 250 /ul Negative [facility] Work Phone: RBC Ql (U) 10-25 SEEN /hpf 0-5 [facility] Work Phone: Urine clarityon 09-06-2021 Clarity (U) Cloudy Clear [facility] Work Phone: Urine color determinationon 09-06-2021 Color (U) Yellow Yellow [facility] Work Phone: Urine glucose detectionon Glucose Ql (U) Normal mg/dl Normal [facility] Work Phone: Urine leukocyte esterase det ection by dipstickon 09-06-2021 Leukocyte esterase Test strip Ql (U) 500 /ul Negative [facility] Work Phone: Urine pHon 09-06-2021 pH (U) 6.0 [pH] 5.0 - 8.0 [facility] Work Phone: Urine sediment bacteria coun t by microscopy (number/high power field)on 09-06-2021 Bacteria LM.HPF (Urine sed) [#/Area] 4 /[HPF] None Seen [facility] Work Phone: Urine specific gravity measu rementon 09-06-2021 Specific gravity (U) [Rel density] 1.015 1.002-1.03 0 [facility] Work Phone: Urobilinogen Auto test strip Ql (U)on 09-06-2021 Urobilinogen Ql (U) Normal mg/dl Normal [facility] Work Phone: Basophil percentageon 2021 Chloride [Moles/Vol] 110 mmol/L 98-107 [facility] Work Phone: Glucose [Mass/Vol] 99 mg/dL 74-106 [facility] Work Phone: Potassium [Moles/Vol] 4.3 mmol/L 3.5-5.1 [facility] Work Phone: Sodium [Moles/Vol] 139 mmol/L 136-145 [facility] Work Phone: Laboratory - Chemistry and C hemistry - challengeon 09-05-2021 CO2 [Moles/Vol] 23.0 mmol/L 21.0-32.0 [facility] Work Phone: Natriuretic peptide B (Bld) [Mass/Vol] 144.5 pg/mL 0-100 [facility] Work Phone: Urea nitrogen/Creatinine [Mass ratio] 27.2 mg/mg 10-20 [facility] Work Phone: No Panel Informationon 09-05 Estimated Creatinine Clearance Calc 70.17 ml/min [facility] Work Phone: Estimated GFR (MDRD) Amer 108 mL/min >60 [facility] Work Phone: Comment on above: GFR Calc Estimated GFR (MDRD) Non-Af Amer 89 mL/min >60 [facility] Work Phone: Comment on above: Non- GFR Calc Serum or plasma calcium nicole urement (mass/volume)on 09-05-2021 Calcium [Mass/Vol] 9.2 mg/dL 8.5-10.1 [facility] Work Phone: Serum or plasma creatinine m easurement (mass/volume)on 09-05-2021 Creatinine [Mass/Vol] 0.88 mg/dL 0.70-1.30 [facility] Work Phone: Comment on above: The validity of the calculated GFR & GFRAA in patients over 70 years has not been determined. Clinical correlation is essential. Serum or plasma urea nitroge n measurement (mass/volume)on 09-05-2021 Urea nitrogen [Mass/Vol] 24 mg/dL 7-18 [facility] Work Phone: Thin prep Papanicolaou smear with manual screeningon 09-05-2021 Thin prep Papanicolaou smear with manual screening 6 5-15 [facility] Work Phone: Absolute lymphocyte counton 09-01-2021 Lymphocytes Auto (Unsp spec) [#/Vol] 0.76 10*3/uL 0.83-4.51 [facility] Work Phone: Basophil percentageon 2021 Basophils/100 WBC (Bld) 0.3 % 0-1 [facility] Work Phone: Eosinophils/100 WBC (Bld) 1.3 % 0-5 [facility] Work Phone: Neutrophils (Bld) [#/Vol] 4.5 10*3/uL 2.0-7.7 [facility] Work Phone: Neutrophils/100 WBC (Bld) 75.1 % 47-70 [facility] Work Phone: WBC (Bld) [#/Vol] 6.1 10*3/uL 4.4-11.0 [facility] Work Phone: Blood erythrocytes count (nu mber/volume)on 09-01-2021 RBC (Bld) [#/Vol] 3.70 10*6/uL 4.6-6.2 [facility] Work Phone: Blood hemoglobin measurement (mass/volume)on 09-01-2021 Hemoglobin (Bld) [Mass/Vol] 11.4 g/dL 13.0-16.5 [facility] Work Phone: [phone] Blood lymphocytes/100 leukoc yteson 09-01-2021 Lymphocytes/100 WBC (Bld) 12.6 % 19-41 [facility] Work Phone: [phone] Blood monocytes/100 leukocyt eson 09-01-2021 Monocytes/100 WBC (Bld) 10.4 % 0-10 [facility] Work Phone: Blood platelet mean volumeon 09-01-2021 Platelet mean volume (Bld) [Entitic vol] 10.3 fL 6.2-12.0 [facility] Work Phone: Determination of erythrocyte mean corpuscular volume (MCV)on 09-01-2021 MCV (RBC) [Entitic vol] 91.4 fL 80-94 [facility] Work Phone: Hematocrit Auto (Bld) [Volum e fraction]on 09-01-2021 Hematocrit (Bld) [Volume fraction] 33.8 % 40-54 [facility] Work Phone: Laboratory - Hematology and Cell countson 09-01-2021 Erythrocyte distribution width (RBC) [Entitic vol] 50.6 fL 35.1-43.9 [facility] Work Phone: Erythrocyte distribution width (RBC) [Ratio] 15.1 % 11.6-14.6 [facility] Work Phone: Immature granulocytes/100 WBC (Bld) 0.300 % 0.0-0.9 [facility] Work Phone: Comment on above: IG% - Immature Granu locytes (promyelocytes, myelocytes and metamyelocytes) > 1% indicates that a LEFT SHIFT is Present. MCH (RBC) [Entitic mass] 30.8 pg 27.0-32.0 [facility] Work Phone: Nucleated RBC/100 WBC (Bld) [Ratio] 0 % 0-5 [facility] Work Phone: MCHC Auto (RBC) [Mass/Vol]on 09-01-2021 MCHC (RBC) [Mass/Vol] 33.7 g/dL 32-36 [facility] Work Phone: [phone] Platelets bldon 09-01-2021 Platelets (Bld) [#/Vol] 133 10*3/uL 150-450 [facility] Work Phone: Basophil percentageon 2021 Chloride [Moles/Vol] 109 mmol/L 98-107 [facility] Work Phone: [phone] Glucose [Mass/Vol] 97 mg/dL 74-106 [facility] Work Phone: Potassium [Moles/Vol] 3.8 mmol/L 3.5-5.1 [facility] Work Phone: Sodium [Moles/Vol] 138 mmol/L 136-145 [facility] Work Phone: [phone] WBC (Bld) [#/Vol] 6.5 10*3/uL 4.4-11.0 [facility] Work Phone: Blood erythrocytes count (nu mber/volume)on 08-16-2021 RBC (Bld) [#/Vol] 3.85 10*6/uL 4.6-6.2 [facility] Work Phone: Blood hemoglobin measurement (mass/volume)on 08-16-2021 Hemoglobin (Bld) [Mass/Vol] 11.8 g/dL 13.0-16.5 [facility] Work Phone: Blood platelet mean volumeon 08-16-2021 Platelet mean volume (Bld) [Entitic vol] 10.3 fL 6.2-12.0 [facility] Work Phone: Determination of erythrocyte mean corpuscular volume (MCV)on 08-16-2021 MCV (RBC) [Entitic vol] 92.2 fL 80-94 [facility] Work Phone: Hematocrit Auto (Bld) [Volum e fraction]on 08-16-2021 Hematocrit (Bld) [Volume fraction] 35.5 % 40-54 [facility] Work Phone: Laboratory - Chemistry and C hemistry - challengeon 08-16-2021 CO2 [Moles/Vol] 23.0 mmol/L 21.0-32.0 [facility] Work Phone: Magnesium [Mass/Vol] 2.3 mg/dL 1.6-2.6 [facility] Work Phone: Urea nitrogen/Creatinine [Mass ratio] 42.2 mg/mg 10-20 [facility] Work Phone: Laboratory - Hematology and Cell countson 08-16-2021 Erythrocyte distribution width (RBC) [Entitic vol] 50.5 fL 35.1-43.9 [facility] Work Phone: Erythrocyte distribution width (RBC) [Ratio] 14.9 % 11.6-14.6 [facility] Work Phone: MCH (RBC) [Entitic mass] 30.6 pg 27.0-32.0 [facility] Work Phone: MCHC Auto (RBC) [Mass/Vol]on 08-16-2021 MCHC (RBC) [Mass/Vol] 33.2 g/dL 32-36 [facility] Work Phone: No Panel Informationon 08-16 Estimated Creatinine Clearance Calc 79.78 ml/min [facility] Work Phone: Estimated GFR (MDRD) Amer 120 mL/min >60 [facility] Work Phone: Comment on above: GFR Calc Estimated GFR (MDRD) Non-Af Amer 99 mL/min >60 [facility] Work Phone: Comment on above: Non- GFR Calc Platelets bldon 08-16-2021 Platelets (Bld) [#/Vol] 150 10*3/uL 150-450 [facility] Work Phone: Serum or plasma calcium nicole urement (mass/volume)on 08-16-2021 Calcium [Mass/Vol] 8.8 mg/dL 8.5-10.1 [facility] Work Phone: Serum or plasma creatinine m easurement (mass/volume)on 08-16-2021 Creatinine [Mass/Vol] 0.80 mg/dL 0.70-1.30 [facility] Work Phone: Comment on above: The validity of the calculated GFR & GFRAA in patients over 70 years has not been determined. Clinical correlation is essential. Serum or plasma urea nitroge n measurement (mass/volume)on 08-16-2021 Urea nitrogen [Mass/Vol] 34 mg/dL 7-18 [facility] Work Phone: Thin prep Papanicolaou smear with manual screeningon 08-16-2021 Thin prep Papanicolaou smear with manual screening 6 5-15 [facility] Work Phone: Lower GI hemoglobin IA Ql (S tl)on 08-09-2021 Stool Occult Blood (DEV) Positive [facility] Work Phone: Absolute lymphocyte counton 07-26-2021 Lymphocytes Auto (Unsp spec) [#/Vol] 1.06 10*3/uL 0.83-4.51 [facility] Work Phone: Basophil percentageon 2021 Basophil percentage 2.8 mg/dL 2.5-4.9 [facility] Work Phone: Basophils/100 WBC (Bld) 0.6 % 0-1 [facility] Work Phone: [phone] Bilirubin [Mass/Vol] 1.30 mg/dL 0.20-1.00 [facility] Work Phone: Comment on above: For patients on eltr ombopag therapy, use of Dimension Mar Lin TBIL is not recommended. Eosinophils/100 WBC (Bld) 1.8 % 0-5 [facility] Work Phone: Neutrophils (Bld) [#/Vol] 6.5 10*3/uL 2.0-7.7 [facility] Work Phone: Neutrophils/100 WBC (Bld) 77.1 % 47-70 [facility] Work Phone: Protein [Mass/Vol] 6.8 g/dL 6.4-8.2 [facility] Work Phone: Blood lymphocytes/100 leukoc yteson 07-26-2021 Lymphocytes/100 WBC (Bld) 12.6 % 19-41 [facility] Work Phone: Blood monocytes/100 leukocyt eson 07-26-2021 Monocytes/100 WBC (Bld) 7.4 % 0-10 [facility] Work Phone: Laboratory - Chemistry and C hemistry - challengeon 07-26-2021 ALP [Catalytic activity/Vol] 83 U/L 45-117 [facility] Work Phone: ALT [Catalytic activity/Vol] 46 U/L 16-61 [facility] Work Phone: Globulin (S) [Mass/Vol] 3.4 g/dL 2.2-4.2 [facility] Work Phone: Laboratory - Hematology and Cell countson 07-26-2021 Immature granulocytes/100 WBC (Bld) 0.500 % 0.0-0.9 [facility] Work Phone: Comment on above: IG% - Immature Granu locytes (promyelocytes, myelocytes and metamyelocytes) > 1% indicates that a LEFT SHIFT is Present. Nucleated RBC/100 WBC (Bld) [Ratio] 0 % 0-5 [facility] Work Phone: Serum or plasma albumin nicole urement (mass/volume)on 07-26-2021 Albumin [Mass/Vol] 3.4 g/dL 3.2-5.0 [facility] Work Phone: Serum or plasma albumin/glob ulin mass ratioon 07-26-2021 Albumin/Globulin [Mass ratio] 1.0 {ratio} 0.9-2.4 [facility] Work Phone: Thin prep Papanicolaou smear with manual screeningon 07-26-2021 Thin prep Papanicolaou smear with manual screening 26 U/L 15-37 [facility] Work Phone: Basophil percentageon 2021 Basophil percentage 25-50 SEEN /hpf 0-5 [facility] Work Phone: Bilirubin Test strip Ql (U)o n 07-25-2021 Bilirubin Ql (U) 1 mg/dL Negative [facility] Work Phone: Comment on above: COLOR OF URINE MAY A FFECT DIPSTICK RESULTS. Culture, urineon 07-25-2021 Bacteria identified Cx Nom (U) Escherichia coli [facility] Work Phone: Ketones Test strip Ql (U)on 07-25-2021 Ketones Ql (U) 5 mg/dl Negative [facility] Work Phone: Mucus LM Ql (Urine sed)on Mucus Ql (Urine sed) 0 SEEN /hpf [facility] Work Phone: Nitrite Test strip Ql (U)on 07-25-2021 Nitrite Ql (U) Positive Negative [facility] Work Phone: Protein Test strip Ql (U)on 07-25-2021 Protein Ql (U) 30 mg/dl Negative [facility] Work Phone: Squamous epithelial cells de tection in urine sediment by light microscopyon 07-25-2021 Epithelial cells.squamous LM Ql (Urine sed) 0-5 SEEN /hpf 0-5 [facility] Work Phone: Urine blood detectionon 07-13 RBC Ql (U) 50 /ul Negative [facility] Work Phone: RBC Ql (U) 0-5 SEEN /hpf 0-5 [facility] Work Phone: Urine clarityon 07-25-2021 Clarity (U) Sl. Cloudy Clear [facility] Work Phone: Urine color determinationon 07-25-2021 Color (U) Yellow Yellow [facility] Work Phone: Urine glucose detectionon Glucose Ql (U) Normal mg/dl Normal [facility] Work Phone: Urine leukocyte esterase det ection by dipstickon 07-25-2021 Leukocyte esterase Test strip Ql (U) 500 /ul Negative [facility] Work Phone: Urine pHon 07-25-2021 pH (U) 6.0 [pH] 5.0 - 8.0 [facility] Work Phone: Urine sediment bacteria coun t by microscopy (number/high power field)on 07-25-2021 Bacteria LM.HPF (Urine sed) [#/Area] 1 /[HPF] None Seen [facility] Work Phone: Urine specific gravity measu rementon 07-25-2021 Specific gravity (U) [Rel density] 1.020 1.002-1.03 0 [facility] Work Phone: Urobilinogen Auto test strip Ql (U)on 07-25-2021 Urobilinogen Ql (U) 8 mg/dl Normal [facility] Work Phone: LAVENDER TOP TUBEon 07-25-19 22 [facility] CBC,PLATELETSon 07-23-2021 Hematocrit (Bld) [Volume fraction] 40.3 % Normal 39.6-48.8 [facility] Comment on above: Performed By: #### H EMOGC #### [facility] (DEFAULT) [address] [place] [id number] Hemoglobin (Bld) [Mass/Vol] 13.9 g/dL Normal 13.4-16.8 [facility] Comment on above: Performed By: #### H EMOGC #### [facility] (DEFAULT) [address] [place] [address]31 MCV (RBC) [Entitic vol] 88.0 fL Normal 79.0-94.5 [facility] Comment on above: Performed By: #### H EMOGC #### [facility] (DEFAULT) [address] [place] [address] [id number] Mean Cell Hgb 30.3 pg Normal 26.1-33.3 [facility] Comment on above: Performed By: #### H EMOGC #### [facility] (DEFAULT) [address] [place] [address] [id number] Mean Cell Hgb Conc 34.5 g/dL Normal 31.9-36.5 [facility] Comment on above: Performed By: #### H EMOGC #### [facility] (DEFAULT) [address] [place] [phone] Platelet mean volume (Bld) [Entitic vol] 10.5 fL Normal 8.7-12.3 [facility] Comment on above: Performed By: #### H EMOGC #### [facility] (DEFAULT) [address] [place] [address] 92651 Platelets (Bld) [#/Vol] 185 10*3/uL Normal 146-337 [facility] Comment on above: Performed By: #### H EMOGC #### [facility] (DEFAULT) [address] [place] [address] 72350 RBC (Bld) [#/Vol] 4.58 10*6/uL Normal 4.38-5.83 [facility] Comment on above: Performed By: #### H [facility] #### [facility] (DEFAULT) [address] [place] [address] 77602 RBC Distribution 14.1 % Normal 10.9-14.3 [facility] Comment on above: Performed By: #### H [facility] #### [facility] (DEFAULT) [address] [place] [address] 78534 WBC (Bld) [#/Vol] 8.34 10*3/uL Normal 3.73-10.10 [facility] Comment on above: Performed By: #### H [facility] #### [facility] (DEFAULT) [address] [place] [address] 93149 Erythrocyte distribution width (RBC) [Ratio] 14.1 % 10.9 - 14.3 % [facility] Hematocrit (Bld) [Volume fraction] 40.3 % 39.6 - 48.8 % [facility] Hemoglobin (Bld) [Mass/Vol] 13.9 g/dL 13.4 - 16.8 g/dL [facility] Interpretation and review of laboratory results Normal [facility] MCH (RBC) [Entitic mass] 30.3 pg 26.1 - 33.3 pg [facility] MCHC (RBC) [Mass/Vol] 34.5 g/dL 31.9 - 36.5 g/dL [facility] MCV (RBC) [Entitic vol] 88.0 fL 79.0 - 94.5 fL [facility] Platelet mean volume (Bld) [Entitic vol] 10.5 fL 8.7 - 12.3 fL [facility] Platelets (Bld) [#/Vol] 185 10*3/uL 146 - 337 K/uL [facility] RBC (Bld) [#/Vol] 4.58 10*6/uL [facility] WBC (Bld) [#/Vol] 8.34 10*3/uL 3.73 - 10.10 K/uL [facility] CHEM 7 (LYTES,BUN,CREA,GLUC) on 07-23-2021 Anion gap [Moles/Vol] 11 mmol/L Normal 7-17 [facility] Comment on above: Performed By: #### A 1CB #### [facility] (DEFAULT) [address] [place] [address] 33078 Chloride [Moles/Vol] 111 mmol/L High 98-108 [facility] Comment on above: Performed By: #### A 1CB #### [facility] (DEFAULT) [address] [place] [address] 05808 CO2 [Moles/Vol] 22 mmol/L Normal 21-31 [facility] Comment on above: Performed By: #### A 1CB #### [facility] (DEFAULT) [address] [place] [address] 74270 Creatinine [Mass/Vol] 0.90 mg/dL Normal 0.70-1.30 [facility] Comment on above: Performed By: #### A 1CB #### [facility] (DEFAULT) [address] [place] [address] 97327 GFR/1.73 sq M.predicted among non-blacks MDRD (S/P/Bld) [Vol rate/Area] 89 mL/min/{1.73_m2} Normal >=60 [facility] Comment on above: Result Comment: Repo rted eGFR is based on the CKD-EPI 2020 equation using creatinine, age, and sex. Performed By: #### A 1CB #### [facility] (DEFAULT) [address] [place] [address] 94104 Glucose [Mass/Vol] 84 mg/dL Normal 70-99 [facility] Comment on above: Performed By: #### A 1CB #### [facility] (DEFAULT) [address] [place] [address] 89244 Osmolality [Osmolality] 295 mosm/kg Normal 278-305 [facility] Comment on above: Performed By: #### A 1CB #### [facility] (DEFAULT) [address] [place] [address] Potassium [Moles/Vol] 3.6 mmol/L Normal 3.5-5.0 [facility] Comment on above: Performed By: #### A 1CB #### [facility] (DEFAULT) [address] [place] [address] Sodium [Moles/Vol] 140 mmol/L Normal 135-145 [facility] Comment on above: Performed By: #### A 1CB #### [facility] (DEFAULT) [address] [place] [address] Urea nitrogen [Mass/Vol] 23 mg/dL Normal 7-25 [facility] Comment on above: Performed By: #### A 1CB #### [facility] (DEFAULT) [address] [place] [address] Urea nitrogen/Creatinine [Mass ratio] 26 mg/mg Normal [facility] Comment on above: Performed By: #### A 1CB #### [facility] (DEFAULT) [address] [place] [address] 33800 Anion gap [Moles/Vol] 11 mmol/L 7 - 17 mmol/L [facility] Chloride [Moles/Vol] 111 mmol/L High 98 - 10 8 mmol/L [facility] CO2 [Moles/Vol] 22 mmol/L 21 - 31 mmol/L [facility] Creatinine [Mass/Vol] 0.90 mg/dL 0.70 - 1.30 mg/dL [facility] GFR/1.73 sq M.predicted CKD-EPI (S/P/Bld) [Vol rate/Area] 89 >=60 mL/min/1.7 3m2 [facility] Comment on above: Reported eGFR is bas ed on the CKD-EPI 2020 equation using creatinine, age, and sex. Glucose [Mass/Vol] 84 mg/dL 70 - 99 mg/dL [facility] Osmolality Calc [Osmolality] 295 [facility] Potassium [Moles/Vol] 3.6 mmol/L 3.5 - 5.0 mmol/L [facility] Sodium [Moles/Vol] 140 mmol/L 135 - 145 mmol/L [facility] Urea nitrogen [Mass/Vol] 23 mg/dL 7 - 25 mg/dL [facility] Urea nitrogen/Creatinine [Mass ratio] 26 mg/mg [facility] DEVICE EVALUATION (SCANNED)o n 07-23-2021 [facility] HEPATIC FUNCTION PANELon Albumin [Mass/Vol] 4.0 g/dL Normal 3.5-5.0 [facility] Comment on above: Performed By: #### A 1CB #### [facility] (DEFAULT) [address] [place] [address] 99309 ALP [Catalytic activity/Vol] 64 U/L Normal 32-126 [facility] Comment on above: Performed By: #### A 1CB #### [facility] (DEFAULT) [address] [place] [address] 80851 ALT [Catalytic activity/Vol] 45 U/L Normal 10-52 [facility] Comment on above: Performed By: #### A 1CB #### [facility] (DEFAULT) [address] [place] [address] 98188 AST [Catalytic activity/Vol] 33 U/L Normal 10-39 [facility] Comment on above: Performed By: #### A 1CB #### [facility] (DEFAULT) [address] [place] [address] 87549 Bilirubin [Mass/Vol] 1.3 mg/dL Normal <1.5 [facility] Comment on above: Performed By: #### A 1CB #### [facility] (DEFAULT) [address] [address] Bilirubin.indirect [Mass/Vol] 0.3 mg/dL High <0.3 [facility] Comment on above: Performed By: #### A 1CB #### [facility] (DEFAULT) [address] [place] [address], [place] [address] Protein [Mass/Vol] 6.7 g/dL Normal 6.4-8.3 [facility] Comment on above: Performed By: #### A 1CB #### [facility] (DEFAULT) [address] [place] [address] Albumin [Mass/Vol] 4.0 g/dL 3.5 - 5.0 g/dL [facility] ALP [Catalytic activity/Vol] 64 U/L 32 - 126 U/L [facility] ALT [Catalytic activity/Vol] 45 U/L 10 - 52 U/L [facility] AST [Catalytic activity/Vol] 33 U/L 10 - 39 U/L [facility] Bilirubin [Mass/Vol] 1.3 mg/dL <1.5 [facility] Bilirubin.direct [Mass/Vol] 0.3 mg/dL High <0.3 [facility] Protein [Mass/Vol] 6.7 g/dL 6.4 - 8.3 g/dL [facility] LT BLUE TOP TUBEon 2 [facility] No Panel Informationon 07-23 Interpretation and review of laboratory results Abnormal [facility] PT,INR,PTTon 07-23-2021 aPTT Coag (Bld) [Time] 28.6 s Normal 24.0-34.3 [facility] Comment on above: Result Comment: Resu lts inconsistent with previous results Performed By: #### U R #### [facility] (DEFAULT) [address] [place] [address] 21854 INR Coag (PPP) [Relative time] 1.2 {INR} High 0.9-1.1 [facility] Comment on above: Performed By: #### U R #### [facility] (DEFAULT) [address] [place] [address] 39859 PT Coag (PPP) [Time] 15.2 s High 11.9-14.2 [facility] Comment on above: Performed By: #### U R #### [facility] (DEFAULT) [address] [place] [address] 83542 PT,INR,PTTOrdered By: Jane Henriquez on 07-23-2021 aPTT Coag (PPP) [Time] 28.6 s [facility] Comment on above: Results inconsistent with previous results INR Coag (Bld) [Relative time] 1.2 {INR} High [facility] Interpretation and review of laboratory results Abnormal [facility] PT Coag (PPP) [Time] 15.2 s High [facility] CALCIUMon 07-22-2021 Calcium [Mass/Vol] 8.7 mg/dL Normal 8.6-10.5 [facility] Comment on above: Performed By: #### U R #### [facility] (DEFAULT) [address] [place] [address] 87672 Calcium [Mass/Vol] 8.7 mg/dL 8.6 - 10. 5 mg/dL [facility] CBC AND ELECTRONIC DIFFon Basophils (Bld) [#/Vol] 0.06 10*3/uL Normal 0.00-0.09 [facility] Comment on above: Performed By: #### L [id number], [id number] #### [facility] (DEFAULT) [address] [place] [address] 93037 Basophils/100 WBC (Bld) 0.7 % Normal [facility] Comment on above: Performed By: #### L [id number], [id number] #### [facility] (DEFAULT) [address] [place] [address] 50754 DIFF STATUS Electronic Differential Normal [facility] Comment on above: Performed By: #### L [id number], [id number] #### [facility] (DEFAULT) [address] [place] [address] 15842 Eosinophils (Bld) [#/Vol] 0.18 10*3/uL Normal 0.00-0.48 [facility] Comment on above: Performed By: #### Say [id number], [id number] #### [facility] (DEFAULT) [address] [address] Eosinophils/100 WBC (Bld) 2.1 % Normal [facility] Comment on above: Performed By: #### Say [id number], [id number] #### [facility] (DEFAULT) [address] [address] Hematocrit (Bld) [Volume fraction] 42.1 % Normal 39.6-48.8 [facility] Comment on above: Performed By: #### Say [id number], [id number] #### [facility] (DEFAULT) [address] [address] Hemoglobin (Bld) [Mass/Vol] 14.0 g/dL Normal 13.4-16.8 [facility] Comment on above: Performed By: #### Say [id number], [id number] #### [facility] (DEFAULT) [address] [address] Immature Grans % 0.6 % Normal [facility] Comment on above: Performed By: #### Say [id number], [id number] #### [facility] (DEFAULT) [address] [address] Immature Grans Absolute 0.05 K/uL Normal <=0.08 [facility] Comment on above: Performed By: #### Say [id number], [id number] #### [facility] (DEFAULT) [address] [address] Lymphocytes (Bld) [#/Vol] 1.10 10*3/uL Normal 0.83-3.57 [facility] Comment on above: Performed By: #### L [id number] #### [facility] (DEFAULT) [address] [address] Lymphocytes/100 WBC (Bld) 13.1 % Normal [facility] Comment on above: Performed By: #### L [id number], [id number] #### [facility] (DEFAULT) [address] [place] [address] 98597 MCV (RBC) [Entitic vol] 90.3 fL Normal 79.0-94.5 [facility] Comment on above: Performed By: #### L [id number], [id number] #### [facility] (DEFAULT) [address] [place] [address] 97172 Mean Cell Hgb 30.0 pg Normal 26.1-33.3 [facility] Comment on above: Performed By: #### L [id number], [id number] #### [facility] (DEFAULT) [address] [place] [address] 08915 Mean Cell Hgb Conc 33.3 g/dL Normal 31.9-36.5 [facility] Comment on above: Performed By: #### L [id number], [id number] #### [facility] (DEFAULT) [address] [place] [address] 37676 Monocytes (Bld) [#/Vol] 0.61 10*3/uL Normal 0.24-0.93 [facility] Comment on above: Performed By: #### L [id number], [id number] #### [facility] (DEFAULT) [address] [place] [address] 63221 Monocytes/100 WBC (Bld) 7.3 % Normal [facility] Comment on above: Performed By: #### L [id number], [id number] #### [facility] (DEFAULT) [address] [address] Nucleated RBC 0.0 /100 WBC Normal <=0.2 [facility] Comment on above: Performed By: #### L [id number], [id number] #### [facility] (DEFAULT) [address] [place] [address] 71220 Platelet mean volume (Bld) [Entitic vol] 11.0 fL Normal 8.7-12.3 [facility] Comment on above: Performed By: #### L [id number], [id number] #### [facility] (DEFAULT) [address] [place] [address] 92941 Platelets (Bld) [#/Vol] 183 10*3/uL Normal 146-337 [facility] Comment on above: Performed By: #### L [id number], [id number] #### [facility] (DEFAULT) [address] [place] [address] 26106 RBC (Bld) [#/Vol] 4.66 10*6/uL Normal 4.38-5.83 [facility] Comment on above: Performed By: #### L [id number], [id number] #### [facility] (DEFAULT) [address] [place] [address] 33373 RBC Distribution 14.4 % High 10.9-14.3 [facility] Comment on above: Performed By: #### Say [id number], [id number] #### [facility] (DEFAULT) [address] [address] Segs + Bands Auto 76.2 % Normal [facility] Comment on above: Performed By: #### L [id number], [id number] #### [facility] (DEFAULT) [address] [place] [address] 13744 Segs + Bands,Absolute Auto 6.41 K/uL High 1.57-6.19 [facility] Comment on above: Performed By: #### L [id number], [id number] #### [facility] (DEFAULT) [address] [address] WBC (Bld) [#/Vol] 8.41 10*3/uL Normal 3.73-10.10 [facility] Comment on above: Performed By: #### L [id number], [id number] #### [facility] (DEFAULT) [address] [place] [address] Basophils (Bld) [#/Vol] 0.06 10*3/uL 0.00 - 0.09 K/uL [facility] Basophils/100 WBC (Bld) 0.7 % O [facility] Differential cell count method Nom (Bld) Electronic Differential [facility] Eosinophils (Bld) [#/Vol] 0.18 10*3/uL 0.00 - 0.48 K/uL [facility] Eosinophils/100 WBC (Bld) 2.1 % [facility] Erythrocyte distribution width (RBC) [Ratio] 14.4 % High 10.9 - 14.3 % [facility] Hematocrit (Bld) [Volume fraction] 42.1 % 39.6 - 48.8 % [facility] Hemoglobin (Bld) [Mass/Vol] 14.0 g/dL 13.4 - 16.8 g/dL [facility] Immature granulocytes (Bld) [#/Vol] 0.05 10*3/uL <=0.08 [facility] Immature granulocytes/100 WBC (Bld) 0.6 % [facility] Interpretation and review of laboratory results Abnormal [facility] Lymphocytes (Bld) [#/Vol] 1.10 10*3/uL 0.83 - 3.57 K/uL [facility] Lymphocytes/100 WBC (Bld) 13.1 % [facility] MCH (RBC) [Entitic mass] 30.0 pg 26.1 - 33.3 pg [facility] MCHC (RBC) [Mass/Vol] 33.3 g/dL 31.9 - 36.5 g/dL [facility] MCV (RBC) [Entitic vol] 90.3 fL 79.0 - 94.5 fL [facility] Monocytes (Bld) [#/Vol] 0.61 10*3/uL 0.24 - 0.93 K/uL [facility] Monocytes/100 WBC (Bld) 7.3 % O [facility] Neutrophils (Bld) [#/Vol] 6.41 10*3/uL High 1.57 - 6.19 K/uL [facility] Nucleated RBC/100 WBC (Bld) [Ratio] 0.0 % <=0.2 /100 WBC [facility] Platelet mean volume (Bld) [Entitic vol] 11.0 fL 8.7 - 12.3 fL [facility] Platelets (Bld) [#/Vol] 183 10*3/uL 146 - 337 K/uL [facility] RBC (Bld) [#/Vol] 4.66 10*6/uL [facility] Segmented neutrophils/100 WBC (Bld) 76.2 % [facility] WBC (Bld) [#/Vol] 8.41 10*3/uL 3.73 - 10.10 K/uL [facility] CHM 7 - EDon 07-22-2021 Anion gap [Moles/Vol] 12 mmol/L Normal 7-17 [facility] Comment on above: Performed By: #### U R #### [facility] (DEFAULT) [address] [place] [address] 62354 Chloride [Moles/Vol] 109 mmol/L High 98-108 [facility] Comment on above: Performed By: #### U R #### [facility] (DEFAULT) [address] [place] [address] 00002 CO2 [Moles/Vol] 22 mmol/L Normal 21-31 [facility] Comment on above: Performed By: #### U R #### [facility] (DEFAULT) [address] [place] [address] 65472 Creatinine [Mass/Vol] 1.03 mg/dL Normal 0.70-1.30 [facility] Comment on above: Performed By: #### U R #### [facility] (DEFAULT) [address] [place] [address] 51231 GFR/1.73 sq M.predicted among non-blacks MDRD (S/P/Bld) [Vol rate/Area] 76 mL/min/{1.73_m2} Normal >=60 [facility] Comment on above: Result Comment: Repo rted eGFR is based on the CKD-EPI 2020 equation using creatinine, age, and sex. Performed By: #### U R #### [facility] (DEFAULT) [address] [place] [address] 39555 Glucose [Mass/Vol] 99 mg/dL Normal 70-99 [facility] Comment on above: Performed By: #### U R #### [facility] (DEFAULT) [address] [place] [address] 72933 Osmolality [Osmolality] 297 mosm/kg Normal 278-305 [facility] Comment on above: Performed By: #### U R #### [facility] (DEFAULT) [address] [place] [address] 20359 Potassium [Moles/Vol] 4.3 mmol/L Normal 3.5-5.0 [facility] Comment on above: Performed By: #### U R #### [facility] (DEFAULT) [address] [place] [address] 95818 Sodium [Moles/Vol] 139 mmol/L Normal 135-145 [facility] Comment on above: Performed By: #### U R #### [facility] (DEFAULT) [address] [place] [address] 03599 Urea nitrogen [Mass/Vol] 27 mg/dL High 7-25 [facility] Comment on above: Performed By: #### U R #### [facility] (DEFAULT) [address] [place] [address] 02047 Urea nitrogen/Creatinine [Mass ratio] 26 mg/mg Normal [facility] Comment on above: Performed By: #### U R #### [facility] (DEFAULT) [address] [place] [address] 93643 Anion gap [Moles/Vol] 12 mmol/L 7 - 17 mmol/L [facility] Chloride [Moles/Vol] 109 mmol/L High 98 - 10 8 mmol/L [facility] CO2 [Moles/Vol] 22 mmol/L 21 - 31 mmol/L [facility] Creatinine [Mass/Vol] 1.03 mg/dL 0.70 - 1.30 mg/dL [facility] GFR/1.73 sq M.predicted CKD-EPI (S/P/Bld) [Vol rate/Area] 76 >=60 mL/min/1.7 3m2 [facility] Comment on above: Reported eGFR is bas ed on the CKD-EPI 2020 equation using creatinine, age, and sex. Glucose [Mass/Vol] 99 mg/dL 70 - 99 mg/dL [facility] Osmolality Calc [Osmolality] 297 [facility] Potassium [Moles/Vol] 4.3 mmol/L 3.5 - 5.0 mmol/L [facility] Sodium [Moles/Vol] 139 mmol/L 135 - 145 mmol/L [facility] Urea nitrogen [Mass/Vol] 27 mg/dL High 7 - 25 mg/dL [facility] Urea nitrogen/Creatinine [Mass ratio] 26 [facility]BD[facility]/PELVIS WITHOUT CO NTRASTon 07-22-2021 CT ABDOMEN/PELVIS WITHOUT CONTRAST EXAM: CT ABDOMEN/PELVIS WITHOUT CONTRAST, 07/22/2021 14:58 PM COMPARISON: No prior studies available for comparison. CLINICAL INDICATIONS: Abdominal pain, acute, nonlocalized; TECHNIQUE: CT images of the abdomen and pelvis were performed without the administration of intravenous contrast.??? PROTOCOL: Standard. CONTRAST: None FINDINGS: Lung Bases: Minimal bilateral dependent atelectasis. Trace pericardial effusion. Partially visualized AICD leads. Coronary artery calcifications. ABDOMEN Suboptimal assessment of the abdominal viscera due to lack of IV contrast. However, there is a global contrast shortage. Liver: Liver is normal in size and CT density. Cyst in the dome. Biliary/Gallbladder: The gallbladder is normal without evidence of radiopaque stones. The biliary tree is nondilated. Spleen: Spleen is at the upper limits of normal in size. Pancreas: Normal noncontrast appearance the pancreas. Adrenals: Adrenal glands are unremarkable. Kidneys: Persistent bilateral nephrograms with excreted contrast in bilateral renal collecting systems. No hydronephrosis or obstructing stones. Bilateral hypodensities are most likely cysts. Retroperitoneal/Vasculatu re: No retroperitoneal lymphadenopathy. Mild/moderate calcified atherosclerotic disease. Gastrointestinal/Mesenter y: Small sliding hiatal hernia. Bowel loops are nondilated without wall thickening. Small bowel loops are mostly collapsed. Nonspecific gaseous distention of the sigmoid colon without dilation. Normal appendix. No free air or pneumatosis. No free fluid or collections. PELVIS Bladder: The bladder is filled with excreted contrast. Bladder wall trabeculation with a few diverticula. Indentation of the bladder base by the median lobe of the prostate. Findings are likely related to chronic outlet obstruction. Genital: Prostate is enlarged Other: Small fat-containing umbilical hernia without evidence of acute inflammation. Bony Structures: Degenerative changes of the spine. IMPRESSION: 1. No acute findings in the abdomen or pelvis. Normal [facility] CT Abdomen and Pelvis WO con traston 07-22-2021 IMPRESSION: 1. No acute findings in the abdomen or pelvis. OLOGY EXAM: CT ABDOMEN/PEL VIS WITHOUT CONTRAST, 07/22/2021 14:58 PM COMPARISON: No prior studies available for comparison. CLINICAL INDICATIONS: Abdominal pain, acute, nonlocalized; TECHNIQUE: CT images of the abdomen and pelvis were performed without the administration of intravenous contrast.??? PROTOCOL: Standard. CONTRAST: None FINDINGS: Lung Bases: Minimal bilateral dependent atelectasis. Trace pericardial effusion. Partially visualized AICD leads. Coronary artery calcifications. ABDOMEN Suboptimal assessment of the abdominal viscera due to lack of IV contrast. However, there is a global contrast shortage. Liver: Liver is normal in size and CT density. Cyst in the dome. Biliary/Gallbladder: The gallbladder is normal without evidence of radiopaque stones. The biliary tree is nondilated. Spleen: Spleen is at the upper limits of normal in size. Pancreas: Normal noncontrast appearance the pancreas. Adrenals: Adrenal glands are unremarkable. Kidneys: Persistent bilateral nephrograms with excreted contrast in bilateral renal collecting systems. No hydronephrosis or obstructing stones. Bilateral hypodensities are most likely cysts. Retroperitoneal/Vasculatu re: No retroperitoneal lymphadenopathy. Mild/moderate calcified atherosclerotic disease. Gastrointestinal/Mesenter y: Small sliding hiatal hernia. Bowel loops are nondilated without wall thickening. Small bowel loops are mostly collapsed. Nonspecific gaseous distention of the sigmoid colon without dilation. Normal appendix. No free air or pneumatosis. No free fluid or collections. PELVIS Bladder: The bladder is filled with excreted contrast. Bladder wall trabeculation with a few diverticula. Indentation of the bladder base by the median lobe of the prostate. Findings are likely related to chronic outlet obstruction. Genital: Prostate is enlarged Other: Small fat-containing umbilical hernia without evidence of acute inflammation. Bony Structures: Degenerative changes of the spine. RADIOLOGY Jeanine Chamberlain MD - 07/22/2021 EXAM: CT ABDOMEN/PELVIS WITHOUT CONTRAST, 07/22/2021 14:58 PM COMPARISON: No prior studies available for comparison. CLINICAL INDICATIONS: Abdominal pain, acute, nonlocalized; TECHNIQUE: CT images of the abdomen and pelvis were performed without the administration of intravenous contrast.??? PROTOCOL: Standard. CONTRAST: None FINDINGS: Lung Bases: Minimal bilateral dependent atelectasis. Trace pericardial effusion. Partially visualized AICD leads. Coronary artery calcifications. ABDOMEN Suboptimal assessment of the abdominal viscera due to lack of IV contrast. However, there is a global contrast shortage. Liver: Liver is normal in size and CT density. Cyst in the dome. Biliary/Gallbladder: The gallbladder is normal without evidence of radiopaque stones. The biliary tree is nondilated. Spleen: Spleen is at the upper limits of normal in size. Pancreas: Normal noncontrast appearance the pancreas. Adrenals: Adrenal glands are unremarkable. Kidneys: Persistent bilateral nephrograms with excreted contrast in bilateral renal collecting systems. No hydronephrosis or obstructing stones. Bilateral hypodensities are most likely cysts. Retroperitoneal/Vasculatu re: No retroperitoneal lymphadenopathy. Mild/moderate calcified atherosclerotic disease. Gastrointestinal/Mesenter y: Small sliding hiatal hernia. Bowel loops are nondilated without wall thickening. Small bowel loops are mostly collapsed. Nonspecific gaseous distention of the sigmoid colon without dilation. Normal appendix. No free air or pneumatosis. No free fluid or collections. PELVIS Bladder: The bladder is filled with excreted contrast. Bladder wall trabeculation with a few diverticula. Indentation of the bladder base by the median lobe of the prostate. Findings are likely related to chronic outlet obstruction. Genital: Prostate is enlarged Other: Small fat-containing umbilical hernia without evidence of acute inflammation. Bony Structures: Degenerative changes of the spine. IMPRESSION IMPRESSION: 1. No acute findings in the abdomen or pelvis. [facility] con trastOrdered By: Jeanine Chamberlain on 07-22-2021 [facility] Work Phone: CT Head limitedon 07-22-2021 IMPRESSION: 1. Areas of relative hyperdensity in the left MCA and BIOMETRICIAN territory involving the left basal ganglia, left temporal lobe, and left occipital lobe likely represent enhancing areas of subacute infarction given the recent contrast administration at an outside hospital. These correspond to areas of infarction seen on recent MRI brain dated July 16, 2021. 2. No acute intracranial hemorrhage or new acute large territorial infarct. 3. 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 Findings were discussed with BART Padilla at 3:10 PM on July 22, 2021. I personally viewed and interpreted these images and I have reviewed and approved this report. OLOGY EXAM: CT STROKE HEAD-STROKE ALERT ONLY, 07/22/2021 2:51 PM COMPARISON: MR brain without contrast July 16, 2021, CT head without contrast July 13, 2021 CLINICAL INDICATIONS: 76 years Male Suspected Stroke; RELEVANT CLINICAL HISTORY: Last known well unknown. Aphasia. TECHNIQUE: A series of transaxial computerized tomographic images are obtained from base of skull to vertex without intravenous contrast. Axial whole-head and thin section posterior fossa slices are provided. Reformats: Sagittal and coronal. FINDINGS: There is no mass lesion or midline shift. There is no evidence of hemorrhage or acute infarct. There is relative hyperdensity in the left MCA and BIOMETRICIAN territory involving the left basal ganglia, left temporal lobe, and left occipital lobe, corresponding to the areas of infarct seen on recent MR brain dated July 16, 2021. There is patchy hypoattenuation scattered throughout the periventricular and deep white matter which is nonspecific but typically related to chronic microvascular disease. There is no extracerebral collection. Ventricles are normal in size and configuration for patient's stated age. Posterior fossa is within normal limits. Calvarium and skull base appear intact. 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 Atherosclerotic calcifications are present in the bilateral intracranial ICAs and vertebral arteries. RADIOLOGY Doroteo Neves MD - 07/22/2021 EXAM: CT STROKE HEAD-STROKE ALERT ONLY, 07/22/2021 2:51 PM COMPARISON: MR brain without contrast July 16, 2021, CT head without contrast July 13, 2021 CLINICAL INDICATIONS: 76 years Male Suspected Stroke; RELEVANT CLINICAL HISTORY: Last known well unknown. Aphasia. TECHNIQUE: A series of transaxial computerized tomographic images are obtained from base of skull to vertex without intravenous contrast. Axial whole-head and thin section posterior fossa slices are provided. Reformats: Sagittal and coronal. FINDINGS: There is no mass lesion or midline shift. There is no evidence of hemorrhage or acute infarct. There is relative hyperdensity in the left MCA and BIOMETRICIAN territory involving the left basal ganglia, left temporal lobe, and left occipital lobe, corresponding to the areas of infarct seen on recent MR brain dated July 16, 2021. There is patchy hypoattenuation scattered throughout the periventricular and deep white matter which is nonspecific but typically related to chronic microvascular disease. There is no extracerebral collection. Ventricles are normal in size and configuration for patient's stated age. Posterior fossa is within normal limits. Calvarium and skull base appear intact. 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 Atherosclerotic calcifications are present in the bilateral intracranial ICAs and vertebral arteries. IMPRESSION IMPRESSION: 1. Areas of relative hyperdensity in the left MCA and BIOMETRICIAN territory involving the left basal ganglia, left temporal lobe, and left occipital lobe likely represent enhancing areas of subacute infarction given the recent contrast administration at an outside hospital. These correspond to areas of infarction seen on recent MRI brain dated July 16, 2021. 2. No acute intracranial hemorrhage or new acute large territorial infarct. 3. 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 Findings were discussed with BART Padilla at 3:10 PM on July 22, 2021. I personally viewed and interpreted these images and I have reviewed and approved this report. [facility] Radiology Study observation (narrative) [facility] CT Head limitedOrdered By: Gamaliel Neves on 07-22-2021 [facility] Work Phone: CT STROKE HEAD-STROKE ALERT ONLYon 07-22-2021 CT STROKE HEAD-STROKE ALERT ONLY EXAM: CT STROKE HEAD-STROKE ALERT ONLY, 07/22/2021 2:51 PM COMPARISON: MR brain without contrast July 16, 2021, CT head without contrast July 13, 2021 CLINICAL INDICATIONS: 76 years Male Suspected Stroke; RELEVANT CLINICAL HISTORY: Last known well unknown. Aphasia. TECHNIQUE: A series of transaxial computerized tomographic images are obtained from base of skull to vertex without intravenous contrast. Axial whole-head and thin section posterior fossa slices are provided. Reformats: Sagittal and coronal. FINDINGS: There is no mass lesion or midline shift. There is no evidence of hemorrhage or acute infarct. There is relative hyperdensity in the left MCA and BIOMETRICIAN territory involving the left basal ganglia, left temporal lobe, and left occipital lobe, corresponding to the areas of infarct seen on recent MR brain dated July 16, 2021. There is patchy hypoattenuation scattered throughout the periventricular and deep white matter which is nonspecific but typically related to chronic microvascular disease. There is no extracerebral collection. Ventricles are normal in size and configuration for patient's stated age. Posterior fossa is within normal limits. Calvarium and skull base appear intact. 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 Atherosclerotic calcifications are present in the bilateral intracranial ICAs and vertebral arteries. IMPRESSION: 1. Areas of relative hyperdensity in the left MCA and BIOMETRICIAN territory involving the left basal ganglia, left temporal lobe, and left occipital lobe likely represent enhancing areas of subacute infarction given the recent contrast administration at an outside hospital. These correspond to areas of infarction seen on recent MRI brain dated July 16, 2021. 2. No acute intracranial hemorrhage or new acute large territorial infarct. 3. 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 Findings were discussed with BART Padilla at 3:10 PM on July 22, 2021. I personally viewed and interpreted these images and I have reviewed and approved this report. Normal [facility] GLUCOSE POCon 07-22-2021 Glucose [Mass/Vol] 96 mg/dL 70 - 99 mg/dL [facility] Poc Sample Type CAPBL [facility] Test performed at ad dress of the patient encounter. [facility] GOLD TOP TUBEon 07-22-2021 [facility] Glucose Glucometer (BldC) [M ass/Vol]on 07-22-2021 Glucose [Mass/Vol] 103 mg/dL 74-106 [facility] Work Phone: Comment on above: MANAGEMENT OF PATIEN T CARE PER NURSING PROTOCOL HEPATIC FUNCTION PANELon Albumin [Mass/Vol] 4.1 g/dL Normal 3.5-5.0 [facility] Comment on above: Performed By: #### U R #### [facility] (DEFAULT) [address] [address] ALP [Catalytic activity/Vol] 62 U/L Normal 32-126 [facility] Comment on above: Performed By: #### U R #### [facility] (DEFAULT) [address] [address] ALT [Catalytic activity/Vol] 48 U/L Normal 10-52 [facility] Comment on above: Performed By: #### U R #### [facility] (DEFAULT) [address] [place] [address] AST [Catalytic activity/Vol] 40 U/L High 10-39 [facility] Comment on above: Performed By: #### U R #### [facility] (DEFAULT) [address] [place] [address] Bilirubin [Mass/Vol] 1.2 mg/dL Normal <1.5 [facility] Comment on above: Performed By: #### U R #### [facility] (DEFAULT) [address] [place] [address] Bilirubin.indirect [Mass/Vol] 0.2 mg/dL Normal <0.3 [facility] Comment on above: Performed By: #### U R #### [facility] (DEFAULT) [address] [place] [address] Protein [Mass/Vol] 6.9 g/dL Normal 6.4-8.3 [facility] Comment on above: Performed By: #### U R #### [facility] (DEFAULT) [address] [place] [address] Albumin [Mass/Vol] 4.1 g/dL 3.5 - 5.0 g/dL [facility] ALP [Catalytic activity/Vol] 62 U/L 32 - 126 U/L [facility] ALT [Catalytic activity/Vol] 48 U/L 10 - 52 U/L [facility] AST [Catalytic activity/Vol] 40 U/L High 10 - 39 U/L [facility] Bilirubin [Mass/Vol] 1.2 mg/dL <1.5 [facility] Bilirubin.direct [Mass/Vol] 0.2 mg/dL <0.3 [facility] Protein [Mass/Vol] 6.9 g/dL 6.4 - 8.3 g/dL [facility] HIGH SENSITIVITY TROPONIN I - SINGLE ORDERon 07-22-2021 hs-Troponin I 10 ng/L Normal <53 [facility] Comment on above: Order Comment: Acute Coronary Syndrome (ACS): Initial Evaluation and Management:[email or web address] Performed By: #### H [facility] #### [facility] (DEFAULT) [address] [place] [phone] Interpretation and review of laboratory results Normal [facility] Troponin I.cardiac DL <= 0.01 ng/mL [Mass/Vol] 10 ng/L <53 [facility] LACTATE, INITIALon 2 0 Hour Lacate 0.9 mmol/L Normal 0.5-1.6 [facility] Comment on above: Performed By: #### L ABLACTINT, [id number] #### [facility] (DEFAULT) [address] [place] [address] Interpretation and review of laboratory results Normal [facility] Lactate [Moles/Vol] 0.9 mmol/L 0.5 - 1. 6 mmol/L [facility] LIPASEon 07-22-2021 Lipase [Catalytic activity/Vol] 37 U/L Normal 11-82 [facility] Comment on above: Performed By: #### U R #### [facility] (DEFAULT) [address] [place] [address] Lipase [Catalytic activity/Vol] 37 U/L 11 - 82 U/L [facility] MAGNESIUMon 07-22-2021 Magnesium [Mass/Vol] 2.0 mg/dL Normal 1.6-2.6 [facility] Comment on above: Performed By: #### U R #### [facility] (DEFAULT) [address] [place] [address] Magnesium [Mass/Vol] 2.0 mg/dL 1.6 - 2 .6 mg/dL [facility] No Panel Informationon 07-22 [facility] Interpretation and review of laboratory results Abnormal [facility] Interpretation and review of laboratory results Normal [facility] PHOSPHATE, INORGANICon 07-22 Phosphorous 3.1 mg/dL Normal 2.2-4.6 [facility] Comment on above: Performed By: #### U R #### [facility] (DEFAULT) [address] [place] [address] Phosphate [Mass/Vol] 3.1 mg/dL 2.2 - 4 .6 mg/dL [facility] PTINR-STROKEon 07-22-2021 INR Coag (PPP) [Relative time] 1.2 {INR} High 0.9-1.1 [facility] Comment on above: Performed By: #### Say [id number], [id number] #### [facility] (DEFAULT) [address] [place] [address] PT Coag (PPP) [Time] 14.5 s High 11.9-14.2 [facility] Comment on above: Performed By: #### Say [id number], [id number] #### [facility] (DEFAULT) [address] [place] [address] INR Coag (Bld) [Relative time] 1.2 {INR} High [facility] Interpretation and review of laboratory results Abnormal [facility] PT Coag (PPP) [Time] 14.5 s High [facility] PTTon 07-22-2021 aPTT Coag (Bld) [Time] 23.2 s Low 24.0-34.3 [facility] Comment on above: Performed By: #### L [id number], [id number] #### [facility] (DEFAULT) [address] [place] [address] PTTOrdered By: Ahmet harley on 07-22-2021 aPTT Coag (PPP) [Time] 23.2 s Low OS U [facility] Interpretation and review of laboratory results Abnormal [facility] Portable XR Chest Views APon 07-22-2021 IMPRESSION: Cardiomegaly. No acute process. I personally viewed and interpreted these images and I have reviewed and approved this report. OLOGY EXAM: XR CHEST AP PORTABLE ED, 07/22/2021 15:21 PM COMPARISON: Compared to February 28, 2015 CLINICAL INDICATIONS: AMS FINDINGS: (Adequate technique) Implanted Devices: Unchanged pacemaker device and partially visualized cervical spine fixation hardware. Thorax: Cardiomegaly. No pneumothorax. No dense consolidation. RADIOLOGY Jacki Sharp [facility] - 07/22/2021 EXAM: XR CHEST AP PORTABLE ED, 07/22/2021 15:21 PM COMPARISON: Compared to February 28, 2015 CLINICAL INDICATIONS: AMS FINDINGS: (Adequate technique) Implanted Devices: Unchanged pacemaker device and partially visualized cervical spine fixation hardware. Thorax: Cardiomegaly. No pneumothorax. No dense consolidation. IMPRESSION IMPRESSION: Cardiomegaly. No acute process. I personally viewed and interpreted these images and I have reviewed and approved this report. [facility] Radiology Study observation (narrative) [facility] Portable XR Chest Views APOr dered By: Jacki Sharp on 07-22-2021 [facility] Work Phone: T4 FREEon 07-22-2021 Free T4 [Mass/Vol] 1.19 ng/dL Normal 0.89-1.76 [facility] Comment on above: Performed By: #### [facility] #### [facility] (DEFAULT) [address] [place] [address] Free T4 [Mass/Vol] 1.19 ng/dL 0.89 - 1.76 ng/dL [facility] Interpretation and review of laboratory results Normal [facility] TSH W/FT4 REFLEXon 2 TSH 5.620 uIU/mL High 0.550-4.78 0 [facility] Comment on above: Performed By: #### [facility] #### [facility] (DEFAULT) [address] [place] [address] Interpretation and review of laboratory results Abnormal [facility] TSH Qn 5.620 m[IU]/L High [facility] URINALYSISon 07-22-2021 Appearance (U) Clear Normal Clear [facility] Comment on above: Performed By: #### L [id number], [id number] #### [facility] (DEFAULT) [address] [place] [address] Bacteria ABSENT Normal ABSENT [facility] Comment on above: Performed By: #### Say [id number], [id number] #### [facility] (DEFAULT) [address] [place] [address] Blood Urine Small Abnormal Negative [facility] Comment on above: Performed By: #### Say [id number], [id number] #### [facility] (DEFAULT) [address] [place] [address] Color (U) Yellow Normal Yellow [facility] Comment on above: Performed By: #### Say [id number], [id number] #### [facility] (DEFAULT) [address] [place] [address] Glucose Ql (U) Negative Normal Negative [facility] Comment on above: Performed By: #### L [id number], [id number] #### [facility] (DEFAULT) [address] [place] [address] Ketones Ql (U) Negative Normal Negative [facility] Comment on above: Performed By: #### L [id number] #### [facility] (DEFAULT) [address] [place] [address] Leukocyte esterase Test strip Ql (U) Small Abnormal Negative [facility] Comment on above: Performed By: #### Say SEGOVIA [id number] #### [facility] (DEFAULT) [address] [address] Nitrites Urine Negative Normal Negative [facility] Comment on above: Performed By: #### Say SEGOVIA [id number] #### [facility] (DEFAULT) [address] [address] pH (U) 6.0 [pH] Normal 5.0-7.0 [facility] Comment on above: Performed By: #### Say SEGOVIA [id number] #### [facility] (DEFAULT) [address] [address] Protein Urine Negative Normal Negative [facility] Comment on above: Performed By: #### Say SEGOVIA [id number] #### [facility] (DEFAULT) [address] [address] RBC Urine 0-2 Normal 0-2 [facility] Comment on above: Performed By: #### Say SEGOVIA [id number] #### [facility] (DEFAULT) [address] [address] Specific [place] Urine 1.010 Normal 1.001 -1.03 5 [facility] Comment on above: Performed By: #### Say SEGOVIA [id number] #### [facility] (DEFAULT) [address] [address] Squamous/Epithelial Cells 0/hpf = 0+ Normal 1/hpf = 1+, 2-5/hpf = 2+, 0/hpf = 0+, ABSENT [facility] Comment on above: Performed By: #### Say [id number], [id number] #### [facility] (DEFAULT) [address] [address] Urobilinogen Urine 2.0 E.U./dL Abnormal 0.2 E.U/dL, 1.0 E.U/dL [facility] Comment on above: Performed By: #### L [id number], [id number] #### [facility] (DEFAULT) [address] [address] WBC Urine 6-9 Abnormal 0-5 [facility] Comment on above: Performed By: #### L [id number], [id number] #### [facility] (DEFAULT) [address] [address] Appearance (U) Clear Clear [facility] Bacteria LM Ql (Urine sed) ABSENT ABSENT [facility] Color (U) Yellow Yellow [facility] Epithelial cells.squamous LM Ql (Urine sed) 0/hpf = 0+ 1/hpf = 1+, 2-5/hpf = 2+, 0/hpf = 0+, ABSENT [facility] Glucose Test strip (U) [Mass/Vol] Negative Negative [facility] Interpretation and review of laboratory results Abnormal [facility] Ketones (U) [Mass/Vol] Negative Negative [facility] Leukocyte esterase Test strip Ql (U) Small Abnormal Negative [facility] Nitrite Ql (U) Negative Negative [facility] pH (U) 6.0 [pH] 5.0 - 7.0 [facility] Protein (U) [Mass/Vol] Negative Negative OS [facility] RBC (U) [#/Vol] Small Abnormal Negative [facility] RBC LM.HPF (Urine sed) [#/Area] 0-2 0 - 2 /HPF [facility] Specific gravity (U) [Rel density] 1.010 [facility] Urobilinogen (U) [Mass/Vol] 2.0 E.U./dL Abnormal 0.2 E.U/dL, 1.0 E.U/dL [facility] WBC LM.HPF (Urine sed) [#/Area] 6-9 Abnormal 0 - 5 /HPF [facility] URINE CULTUREon 07-22-2021 Amikacin [Susceptibility] <=2 Invalid Interpretation Code [facility] Comment on above: Order Comment: For i ndwelling catheters, specimen collection is acceptable on catheter day 1 and 2 only. Hope top vacutainer. Urine must be to the fill line to process (4mls). If minimum volume, send urine in a yellow top vacutainer tube.For straight cath urines, a cut off of equal or greater than 10,000 CFU/mL is considered significant. Performed By: #### L [id number], [id number] #### [facility] (DEFAULT) [address] [address] Cefepime [Susceptibility] 8 ug/mL Invalid Interpretation Code [facility] Comment on above: Order Comment: For i ndwelling catheters, specimen collection is acceptable on catheter day 1 and 2 only. Hope top vacutainer. Urine must be to the fill line to process (4mls). If minimum volume, send urine in a yellow top vacutainer tube.For straight cath urines, a cut off of equal or greater than 10,000 CFU/mL is considered significant. Performed By: #### L [id number], [id number] #### [facility] (DEFAULT) [address] [address] Ciprofloxacin [Susceptibility] 1 ug/mL Significant change up [facility] Comment on above: Order Comment: For i ndwelling catheters, specimen collection is acceptable on catheter day 1 and 2 only. Hope top vacutainer. Urine must be to the fill line to process (4mls). If minimum volume, send urine in a yellow top vacutainer tube.For straight cath urines, a cut off of equal or greater than 10,000 CFU/mL is considered significant. Performed By: #### L [id number], [id number] #### [facility] (DEFAULT) [address] [address] Gentamicin [Susceptibility] <=1 Invalid Interpretation Code [facility] Comment on above: Order Comment: For i ndwelling catheters, specimen collection is acceptable on catheter day 1 and 2 only. Hope top vacutainer. Urine must be to the fill line to process (4mls). If minimum volume, send urine in a yellow top vacutainer tube.For straight cath urines, a cut off of equal or greater than 10,000 CFU/mL is considered significant. Performed By: #### Say [id number], [id number] #### [facility] (DEFAULT) [address] [address] Piperacillin+Tazobactam [Susceptibility] 32 ug/mL Significant change up [facility] Comment on above: Order Comment: For i ndwelling catheters, specimen collection is acceptable on catheter day 1 and 2 only. Hope top vacutainer. Urine must be to the fill line to process (4mls). If minimum volume, send urine in a yellow top vacutainer tube.For straight cath urines, a cut off of equal or greater than 10,000 CFU/mL is considered significant. Performed By: #### Say [id number], [id number] #### [facility] (DEFAULT) [address] [address] Tobramycin [Susceptibility] <=1 Invalid Interpretation Code [facility] Comment on above: Order Comment: For i ndwelling catheters, specimen collection is acceptable on catheter day 1 and 2 only. Hope top vacutainer. Urine must be to the fill line to process (4mls). If minimum volume, send urine in a yellow top vacutainer tube.For straight cath urines, a cut off of equal or greater than 10,000 CFU/mL is considered significant. Performed By: #### L JULIETTE [id number] #### [facility] (DEFAULT) [address] [address] VENOUS BLOOD GASon 2 Base Excess -2.6 mmol/L Normal -3.0-3.0 [facility] Comment on above: Performed By: #### L ABLACTINT, [id number] #### [facility] (DEFAULT) [address] [address] HCO3 (Bld) [Moles/Vol] 23 mmol/L Normal 22-29 [facility] Comment on above: Performed By: #### L ABLACTINT, [id number] #### [facility] (DEFAULT) [address] [place] [address] PCO2 43 mm Hg Normal 36-52 [facility] Comment on above: Performed By: #### L ABLACTINT, [id number] #### [facility] (DEFAULT) [address] [place] [address] pH (Bld) 7.34 [pH] Normal 7.32-7.43 [facility] Comment on above: Performed By: #### L ABLACTINT, [id number] #### [facility] (DEFAULT) [address] [place] [address] PO2 35 mm Hg Normal [facility] Comment on above: Result Comment: Venous pO2 is not recommended for the evaluation of oxygen status, clinical correlation is recommended. Performed By: #### L ABLACTINT, [id number] #### [facility] (DEFAULT) [address] [place] [address] sO2 52 % Low 70-80 [facility] Comment on above: Performed By: #### L ABLACTINT, [id number] #### [facility] (DEFAULT) [address] [place] [address] Base excess Calc (Bld) [Moles/Vol] -2.6000 mmol/L -3.0 - 3.0 mmol/L [facility] CO2 (Bld) [Partial pressure] 43 mm[Hg] [facility] HCO3 (Bld) [Moles/Vol] 23 mmol/L 22 - 29 mmol/L [facility] Interpretation and review of laboratory results Abnormal [facility] Oxygen (Bld) [Partial pressure] 35 mm[Hg] mm Hg [facility] Oxygen saturation in Blood 52 % Low 70 - 80 % [facility] pH (Bld) 7.34 [pH] [facility] XR CHEST AP PORTABLE EDon XR CHEST AP PORTABLE ED EXAM: XR CHEST A P PORTABLE ED, 07/22/2021 15:21 PM COMPARISON: Compared to February 28, 2015 CLINICAL INDICATIONS: AMS FINDINGS: (Adequate technique) Implanted Devices: Unchanged pacemaker device and partially visualized cervical spine fixation hardware. Thorax: Cardiomegaly. No pneumothorax. No dense consolidation. IMPRESSION: Cardiomegaly. No acute process. I personally viewed and interpreted these images and I have reviewed and approved this report. Normal [facility] Basophil percentageon 2021 Chloride [Moles/Vol] 111 mmol/L 98-107 [facility] Work Phone: Glucose [Mass/Vol] 101 mg/dL 74-106 [facility] Work Phone: Comment on above: Fasting Glucose resu lt from 100 to 125 mg/dL suggests IMPAIRED HOMEOSTASIS per A.D.A. criteria. Potassium [Moles/Vol] 3.1 mmol/L 3.5-5.1 [facility] Work Phone: Sodium [Moles/Vol] 141 mmol/L 136-145 [facility] Work Phone: Laboratory - Chemistry and C hemistry - challengeon 07-21-2021 CO2 [Moles/Vol] 23.0 mmol/L 21.0-32.0 [facility] Work Phone: Urea nitrogen/Creatinine [Mass ratio] 23.8 mg/mg 10-20 [facility] Work Phone: No Panel Informationon 07-21 Estimated Creatinine Clearance Calc 60.79 ml/min [facility] Work Phone: Estimated GFR (MDRD) Amer 89 mL/min >60 [facility] Work Phone: Comment on above: GFR Calc Estimated GFR (MDRD) Non-Af Amer 73 mL/min >60 [facility] Work Phone: Comment on above: Non- GFR Calc Serum or plasma calcium nicole urement (mass/volume)on 07-21-2021 Calcium [Mass/Vol] 8.5 mg/dL 8.5-10.1 [facility] Work Phone: Serum or plasma creatinine m easurement (mass/volume)on 07-21-2021 Creatinine [Mass/Vol] 1.05 mg/dL 0.70-1.30 [facility] Work Phone: Comment on above: The validity of the calculated GFR & GFRAA in patients over 70 years has not been determined. Clinical correlation is essential. Serum or plasma urea nitroge n measurement (mass/volume)on 07-21-2021 Urea nitrogen [Mass/Vol] 25 mg/dL 7-18 [facility] Work Phone: Thin prep Papanicolaou smear with manual screeningon 07-21-2021 Thin prep Papanicolaou smear with manual screening 7 5-15 [facility] Work Phone: Basophil percentageon 2021 WBC (Bld) [#/Vol] 10.2 10*3/uL 4.4-11.0 [facility] Work Phone: Blood erythrocytes count (nu mber/volume)on 07-19-2021 RBC (Bld) [#/Vol] 4.59 10*6/uL 4.6-6.2 [facility] Work Phone: Blood hemoglobin measurement (mass/volume)on 07-19-2021 Hemoglobin (Bld) [Mass/Vol] 13.8 g/dL 13.0-16.5 [facility] Work Phone: Blood platelet mean volumeon 07-19-2021 Platelet mean volume (Bld) [Entitic vol] 10.4 fL 6.2-12.0 [facility] Work Phone: Determination of erythrocyte mean corpuscular volume (MCV)on 07-19-2021 MCV (RBC) [Entitic vol] 88.7 fL 80-94 [facility] Work Phone: Hematocrit Auto (Bld) [Volum e fraction]on 07-19-2021 Hematocrit (Bld) [Volume fraction] 40.7 % 40-54 [facility] Work Phone: Laboratory - Hematology and Cell countson 07-19-2021 Erythrocyte distribution width (RBC) [Entitic vol] 44.9 fL 35.1-43.9 [facility] Work Phone: Erythrocyte distribution width (RBC) [Ratio] 14.2 % 11.6-14.6 [facility] Work Phone: MCH (RBC) [Entitic mass] 30.1 pg 27.0-32.0 [facility] Work Phone: MCHC Auto (RBC) [Mass/Vol]on 07-19-2021 MCHC (RBC) [Mass/Vol] 33.9 g/dL 32-36 [facility] Work Phone: Platelets bldon 07-19-2021 Platelets (Bld) [#/Vol] 180 10*3/uL 150-450 [facility] Work Phone: CBC,PLATELETSon 07-17-2021 Hematocrit (Bld) [Volume fraction] 37.7 % Low 39.6-48.8 [facility] Comment on above: Performed By: #### Say SEGOVIA [id number] #### [facility] (DEFAULT) [address] [address] Hemoglobin (Bld) [Mass/Vol] 12.6 g/dL Low 13.4-16.8 [facility] Comment on above: Performed By: #### Say SEGOVIA [id number] #### [facility] (DEFAULT) [address] [address] MCV (RBC) [Entitic vol] 91.3 fL Normal 79.0-94.5 [facility] Comment on above: Performed By: #### Say [id number], [id number] #### [facility] (DEFAULT) [address] [address] Mean Cell Hgb 30.5 pg Normal 26.1-33.3 [facility] Comment on above: Performed By: #### Say SEGOVIA [id number] #### [facility] (DEFAULT) [address] [place] [address] Mean Cell Hgb Conc 33.4 g/dL Normal 31.9-36.5 [facility] Comment on above: Performed By: #### L [id number], [id number] #### [facility] (DEFAULT) [address] [place] [address] Platelet mean volume (Bld) [Entitic vol] 10.6 fL Normal 8.7-12.3 [facility] Comment on above: Performed By: #### L [id number], [id number] #### [facility] (DEFAULT) [address] [place] [address] Platelets (Bld) [#/Vol] 155 10*3/uL Normal 146-337 [facility] Comment on above: Performed By: #### Say [id number], [id number] #### [facility] (DEFAULT) [address] [place] [address] RBC (Bld) [#/Vol] 4.13 10*6/uL Low 4.38-5.83 [facility] Comment on above: Performed By: #### Say [id number], [id number] #### [facility] (DEFAULT) [address] [place] [address] RBC Distribution 14.2 % Normal 10.9-14.3 [facility] Comment on above: Performed By: #### L [id number], [id number] #### [facility] (DEFAULT) [address] [place] [address] WBC (Bld) [#/Vol] 7.35 10*3/uL Normal 3.73-10.10 [facility] Comment on above: Performed By: #### L [id number], [id number] #### [facility] (DEFAULT) [address] [place] [address] Erythrocyte distribution width (RBC) [Ratio] 14.2 % 10.9 - 14.3 % [facility] Hematocrit (Bld) [Volume fraction] 37.7 % Low 39.6 - 48.8 % [facility] Hemoglobin (Bld) [Mass/Vol] 12.6 g/dL Low 13.4 - 16.8 g/dL [facility] Interpretation and review of laboratory results Abnormal [facility] MCH (RBC) [Entitic mass] 30.5 pg 26.1 - 33.3 pg [facility] MCHC (RBC) [Mass/Vol] 33.4 g/dL 31.9 - 36.5 g/dL [facility] MCV (RBC) [Entitic vol] 91.3 fL 79.0 - 94.5 fL [facility] Platelet mean volume (Bld) [Entitic vol] 10.6 fL 8.7 - 12.3 fL [facility] Platelets (Bld) [#/Vol] 155 10*3/uL 146 - 337 K/uL [facility] RBC (Bld) [#/Vol] 4.13 10*6/uL Low [facility] WBC (Bld) [#/Vol] 7.35 10*3/uL 3.73 - 10.10 K/uL [facility] CHEM 7 (LYTES,BUN,CREA,GLUC) on 07-17-2021 Anion gap [Moles/Vol] 18 mmol/L High 7-17 [facility] Comment on above: Performed By: #### C HM7 #### [facility] (DEFAULT) [address] [place] [address] Chloride [Moles/Vol] 110 mmol/L High 98-108 [facility] Comment on above: Performed By: #### C HM7 #### [facility] (DEFAULT) [address] [place] [address] CO2 [Moles/Vol] 19 mmol/L Low 21-31 [facility] Comment on above: Performed By: #### C HM7 #### [facility] (DEFAULT) [address] [place] [address] Creatinine [Mass/Vol] 1.07 mg/dL Normal 0.70-1.30 [facility] Comment on above: Performed By: #### C HM7 #### [facility] (DEFAULT) [address] [place] [address] GFR/1.73 sq M.predicted among non-blacks MDRD (S/P/Bld) [Vol rate/Area] 72 mL/min/{1.73_m2} Normal >=60 [facility] Comment on above: Result Comment: Repo rted eGFR is based on the CKD-EPI 2020 equation using creatinine, age, and sex. Performed By: #### C HM7 #### [facility] (DEFAULT) [address] [address] Glucose [Mass/Vol] 95 mg/dL Normal 70-99 [facility] Comment on above: Performed By: #### C HM7 #### [facility] (DEFAULT) [address] [place] [address] Osmolality [Osmolality] 303 mosm/kg Normal 278-305 [facility] Comment on above: Performed By: #### C HM7 #### [facility] (DEFAULT) [address] [place] [address] Potassium [Moles/Vol] 3.1 mmol/L Low 3.5-5.0 [facility] Comment on above: Performed By: #### C HM7 #### [facility] (DEFAULT) [address] [place] [address] Sodium [Moles/Vol] 144 mmol/L Normal 135-145 [facility] Comment on above: Performed By: #### C HM7 #### [facility] (DEFAULT) [address] [address] Urea nitrogen [Mass/Vol] 26 mg/dL High 7-25 [facility] Comment on above: Performed By: #### C HM7 #### [facility] (DEFAULT) [address] [place] [address] Urea nitrogen/Creatinine [Mass ratio] 24 mg/mg Normal [facility] Comment on above: Performed By: #### C HM7 #### [facility] (DEFAULT) [address] [place] [address] CHEM 7 (LYTES,BUN,CREA,GLUC) Ordered By: Shauna Clayton on 07-17-2021 Anion gap [Moles/Vol] 18 mmol/L High 7 - 17 mmol/L [facility] Chloride [Moles/Vol] 110 mmol/L High 98 - 10 8 mmol/L [facility] CO2 [Moles/Vol] 19 mmol/L Low 21 - 31 mmol/L [facility] Creatinine [Mass/Vol] 1.07 mg/dL 0.70 - 1.30 mg/dL [facility] GFR/1.73 sq M.predicted CKD-EPI (S/P/Bld) [Vol rate/Area] 72 >=60 mL/min/1.7 3m2 [facility] Comment on above: Reported eGFR is bas ed on the CKD-EPI 2020 equation using creatinine, age, and sex. Glucose [Mass/Vol] 95 mg/dL 70 - 99 mg/dL [facility] Interpretation and review of laboratory results Abnormal [facility] Osmolality Calc [Osmolality] 303 [facility] Potassium [Moles/Vol] 3.1 mmol/L Low 3.5 - 5.0 mmol/L [facility] Sodium [Moles/Vol] 144 mmol/L 135 - 145 mmol/L [facility] Urea nitrogen [Mass/Vol] 26 mg/dL High 7 - 25 mg/dL [facility] Urea nitrogen/Creatinine [Mass ratio] 24 mg/mg [facility] Cardiac echo study Procedure Ordered By: Ellen Gao on 07-17-2021 Ao peak romy 1.75 m/s [facility] Work Phone: AV LVOT [facility]: [facility] peak gradient 12 mmHG [facility] Work Phone: [facility]: JANA (continuity Vmax) 2.28 cm2 [facility] Work Phone: JANA index (continuity Vmax) 1.08 m/s [facility] Work Phone: Avg e' pk romy 0.06 m/s [facility] Work Phone: Avg E/e' ratio 13.44 [facility] Work Phone: Body surface area Derived from formula 2.12 m2 [facility] Work Phone[facility] BP EF 61 % [facility] Work Phone: DI (Vmax) 0.60 [facility] Work Phone: E wave decelartion time 256.00 msec [facility] Work Phone: e' lateral pk romy 0.0673 m/s [facility] Work Phone: e' lateral pk romy 0.07 m/s [facility] Work Phone: e' septal pk romy 0.0546 m[facility] e' septal pk romy 0.05 m/s [facility]: E/A ratio 0.77 [facility] Work Phone: E[place]e' lateral ratio 12.04 [facility] Phone: E/e' septal ratio 14.84 [facility] Work Phone: FS 33 % 28 - 44 % [facility] Work Phone: IVS 1.10 cm [facility] Work Phone: LA AREA 2CH 27.90 cm2 [facility] Work Phone: LA area 4CH 28.90 cm2 [facility] Work Phone: LA ESV BP (MOD) 100 mL [facility] Work Phone: LA ESV BP (MOD) index 47 mL/m2 [facility] Work Phone: LA ESV SP 2CH (MOD) 89 [facility]: LA ESV SP 4CH (MOD) 103 mL [facility] Work Phone: LV EDV BP 98 mL [facility] Work Phone: LV ESV BP 38 mL [facility] Work Phone: LV mass 169.85 g [facility] Work Phone: LV Mass Index 80.1 g/m2 [facility] Work Phone: LV RWT 0.43 [facility] Work Phone: LV stroke volume BP (ml) 60 [facility] Work Phone: LV stroke volume index BP 28.30 mL/m2 [facility] Work Phone: LVIDD 4.60 cm [facility] Work Phone: LVIDS 3.10 cm [facility] Work Phone: LVOT area 3.80 cm2 [facility] Work Phone: LVOT diameter 2.20 cm [facility] Work Phone: LVOT peak romy 1.05 m/s [facility] Work Phone: MV pk A romy 1.05 m/s [facility] Work Phone: MV pk E romy 0.81 m/s [facility] Work Phone: [facility] ECHO LV BIPLANE SYSTOLIC VOLUME INDEX 17.92 mL/m2 [facility] Work Phone: [facility] ECHO LV BP DIASTOLIC VOLUME INDEX 46.23 mL/m2 [facility] Work Phone: PV peak gradient 5 mmHg [facility] Work Phone: PV PK ROMY 1.12 m/s [facility] Work Phone: PW 1.00 cm [facility] Work Phone: RA area 4CH (MOD) 26.20 cm2 [facility] Work Phone: RA vol index 4CH (MOD) 42.92 mL/m2 [facility] Work Phone: Right atrium volume 4 chamber method of disks 91 mL [facility] Work Phone: RV S' 18.40 cm/s [facility] Work Phone: TAPSE 2.06 cm [facility] Work Phone: [facility] Work Phone: Cardiac echo study Procedure on 07-17-2021 Overall image qualit y is poor secondary to patient body habitus. The left ventricle is normal in size and systolic function; EF 60%. The right ventricle is normal in size and systolic function. Bi-atrial enlargement. Valves not well visualized. There is no hemodynamically significant valve disease to the extent the valves are visualized. No prior echo image are available for comparison. Left Ventricle Chamber size is normal. Concentric remodeling is present. Normal global wall motion. Regional wall motion is normal. Ejection fraction is normal (60 - 65%). Diastolic function could not be determined. Right Ventricle Chamber size is normal. Systolic function is normal. Left Atrium Chamber size is enlarged. Right Atrium Chamber size is enlarged. IVC/SVC The inferior vena cava structure has a diameter <21 mm and decreases >50% during inspiration. Mitral Valve Mitral valve not well visualized. No regurgitation. No valve stenosis. Tricuspid Valve Unable to assess tricuspid valve structure and tricuspid valve not well visualized. Aortic Valve Aortic valve not well visualized. Structural morphology cannot be determined. No regurgitation. No stenosis. Pulmonic Valve Unable to assess pulmonic valve and pulmonic valve not well visualized. Pulmonic valve function not well visualized. Pericardium Pericardium not well visualized. Appears normal. No pericardial effusion. Septum The atrial septum is normal. Aorta Unable to assess the aorta and aorta not well visualized. Study Details A complete 2D echocardiography study (including color flow Doppler, spectral Doppler, M-mode and microbubbles) was performed. Contrast indication: evaluation of left ventricle contiguous segments. Contrast was administered. Study limitations include poor cardiac windows. Imaging system used: [employer]. Indications for study: stroke/tia. [facility] Radiology Study observation (narrative) [facility] ECHOCARDIOGRAMon 07-17-2021 Echocardiography ? Overall image qual ity is poor secondary to patient body habitus. ? The left ventricle is normal in size and systolic function; EF 60%. ? The right ventricle is normal in size and systolic function. ? Bi-atrial enlargement. ? Valves not well visualized. There is no hemodynamically significant valve disease to the extent the valves are visualized. ? No prior echo image are available for comparison. Facility [facility] Patient Information Patient Name Ignacio Aquino Legal Sex Male Indication for Exam Priority: Routine Dx: Stroke [I63.9 (ICD-10-CM)] Order Question Reason for Exam Stroke Interpretation Summary ? Overall image quality is poor secondary to patient body habitus. ? The left ventricle is normal in size and systolic function; EF 60%. ? The right ventricle is normal in size and systolic function. ? Bi-atrial enlargement. ? Valves not well visualized. There is no hemodynamically significant valve disease to the extent the valves are visualized. ? No prior echo image are available for comparison. Findings Left Ventricle Chamber size is normal. Concentric remodeling is present. Normal global wall motion. Regional wall motion is normal. Ejection fraction is normal (60 - 65%). Diastolic function could not be determined. Right Ventricle Chamber size is normal. Systolic function is normal. Left Atrium Chamber size is enlarged. Right Atrium Chamber size is enlarged. Septum The atrial septum is normal. Mitral Valve Mitral valve not well visualized. No regurgitation. No valve stenosis. Aortic Valve Aortic valve not well visualized. Structural morphology cannot be determined. No regurgitation. No stenosis. Tricuspid Valve Unable to assess tricuspid valve structure and tricuspid valve not well visualized. Pulmonic Valve Unable to assess pulmonic valve and pulmonic valve not well visualized. Pulmonic valve function not well visualized. Aorta Unable to assess the aorta and aorta not well visualized. Pericardium Pericardium not well visualized. Appears normal. No pericardial effusion. IVC/SVC The inferior vena cava structure has a diameter <21 mm and decreases >50% during inspiration. Reading Providers Reading Role Read Date Ellen Gao MD Echo [place] 07/17/2021 Left Heart Measurements LV - Systole LVIDD 4.6 cm IVS 1.1 cm LVIDS 3.1 cm PW 1 cm LV RWT 0.43 LV Mass Index 80.1 g/m2 LV EDV BP 98 mL LV ESV BP 38 mL BP EF 61 % LV stroke volume BP (ml) 60 mL LV stroke volume index BP 28.3 mL/m2 LV - Diastole MV pk E romy 0.81 m/s MV pk A romy 1.05 m/s E/A ratio 0.77 e' septal pk romy 0.05 m/s e' lateral pk romy 0.07 m/s Avg e' pk romy 0.06 m/s E/e' septal ratio 14.84 E/e' lateral ratio 12.04 Avg E/e' ratio 13.44 LV - HCM AV LVOT peak gradient 4 mmHg Left Atrium LA ESV SP 4CH (MOD) 103 mL LA ESV SP 2CH (MOD) 89 mL LA ESV BP (MOD) index 47 mL/m2 Right Heart Measurements RV - Doppler TAPSE 2.06 cm RV S' 18.4 cm/s Right Atrium RA vol index 4CH (MOD) 42.92 mL/m2 RA area 4CH (MOD) 26.2 cm2 Doppler Measurements - Aortic Valve Stenosis LVOT diameter 2.2 cm LVOT area 3.8 cm2 LVOT peak romy 1.05 m/s Ao peak romy 1.75 m/s AV peak gradient 12 mmHG DI (Vmax) 0.6 JANA (continuity Vmax) 2.28 cm2 JANA index (continuity Vmax) 1.08 m/s Doppler Measurements - Mitral Valve Stenosis MV pk E romy 0.81 m/s MV pk A romy 1.05 m/s E/A ratio 0.77 PISA-MS MV pk E romy 0.81 m/s Doppler Measurements - Pulmonic Valve Stenosis PV PK ROMY 1.12 m/s PV peak gradient 5 mmHg Performing Staff Carlos Ogden RDCS Study Details A complete 2D echocardiography study (including color flow Doppler, spectral Doppler, M-mode and microbubbles) was performed. Contrast indication: evaluation of left ventricle contiguous segments. Contrast was administered. Study limitations include poor cardiac windows. Imaging system used: [employer]. Indications for study: stroke/tia. Exam Details Performed Procedure Technologist Supporting Staff Performing Physician ECHOCARDIOGRAM W/O 3D W/CONTRAST WILLIAMS Pratt RN Appointment Date/Status Modality Department 07/17/2021 Arrived ECHO TESTING, [facility] ECHOCARDIOGRAPHY ROSS Begin Exam End Exam 07/17/2021 7:25 AM 07/17/2021 9:29 AM Vitals Height Weight BSA (Calculated - sq m) BP Pulse 1.753 m (5' 9.02) 96.6 kg (212 lb 15.4 oz) 2.12 m2 210/99 54 Signed at 1023 EDT Order Report Order Details Encounter View Encounter External Results Report Open External Results Report Patient Release Status: This result is viewable by the patient in [employer]. ECHOCA (more content not included)... 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 There is generalized volume loss and presumed residua of chronic small vessel ischemic disease. Punctate foci of increased susceptibility in the region of right dentate nucleus (series 12 image 21) and left thalamus keeping with remote microhemorrhage. OLOGY EXAM: MRI BRAIN WITH OUT CONTRAST, 07/16/2021 09:47 AM COMPARISON: No prior studies available for comparison. CLINICAL INDICATIONS: 76 years Male Stroke Workup; RELEVANT CLINICAL HISTORY: TECHNIQUE: A series of multisequence, multiplanar images of the brain are obtained without intravenous contrast. FINDINGS: Restricted diffusion in keeping with acute infarction involving left basal ganglia, left insular ribbon left temporal lobe and left occipital lobe. 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 There is generalized volume loss and presumed residua of chronic small vessel ischemic disease. Punctate foci of increased susceptibility in the region of right dentate nucleus (series 12 image 21) and left thalamus keeping with remote microhemorrhage. No extracerebral collection. Sellar and parasellar structures are unremarkable. Posterior fossa is unremarkable. Ventricles and sulci are within normal limits. Extracranial structures are unremarkable. RADIOLOGY Shanna Aguillon MD - 07/16/2021 EXAM: MRI BRAIN WITHOUT CONTRAST, 07/16/2021 09:47 AM COMPARISON: No prior studies available for comparison. CLINICAL INDICATIONS: 76 years Male Stroke Workup; RELEVANT CLINICAL HISTORY: TECHNIQUE: A series of multisequence, multiplanar images of the brain are obtained without intravenous contrast. FINDINGS: Restricted diffusion in keeping with acute infarction involving left basal ganglia, left insular ribbon left temporal lobe and left occipital lobe. 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 There is generalized volume loss and presumed residua of chronic small vessel ischemic disease. Punctate foci of increased susceptibility in the region of right dentate nucleus (series 12 image 21) and left thalamus keeping with remote microhemorrhage. No extracerebral collection. Sellar and parasellar structures are unremarkable. Posterior fossa is unremarkable. Ventricles and sulci are within normal limits. Extracranial structures are unremarkable. IMPRESSION IMPRESSION: Restricted diffusion in keeping with acute infarction involving left basal ganglia, left insular ribbon left temporal lobe and left occipital lobe. 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 There is generalized volume loss and presumed residua of chronic small vessel ischemic disease. Punctate foci of increased susceptibility in the region of right dentate nucleus (series 12 image 21) and left thalamus keeping with remote microhemorrhage. [facility] Radiology Study observation (narrative) [facility] MR Brain WO contrastOrdered By: Shanna Aguillon on 07-16-2021 [facility] Work Phone: MRI BRAIN WITHOUT CONTRASTon 07-16-2021 MRI BRAIN WITHOUT CONTRAST EXAM: MRI BRAIN WITHOUT CONTRAST, 07/16/2021 09:47 AM COMPARISON: No prior studies available for comparison. CLINICAL INDICATIONS: 76 years Male Stroke Workup; RELEVANT CLINICAL HISTORY: TECHNIQUE: A series of multisequence, multiplanar images of the brain are obtained without intravenous contrast. FINDINGS: Restricted diffusion in keeping with acute infarction involving left basal ganglia, left insular ribbon left temporal lobe and left occipital lobe. 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 There is generalized volume loss and presumed residua of chronic small vessel ischemic disease. Punctate foci of increased susceptibility in the region of right dentate nucleus (series 12 image 21) and left thalamus keeping with remote microhemorrhage. No extracerebral collection. Sellar and parasellar structures are unremarkable. Posterior fossa is unremarkable. Ventricles and sulci are within normal limits. Extracranial structures are unremarkable. IMPRESSION: Restricted diffusion in keeping with acute infarction involving left basal ganglia, left insular ribbon left temporal lobe and left occipital lobe. 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 There is generalized volume loss and presumed residua of chronic small vessel ischemic disease. Punctate foci of increased susceptibility in the region of right dentate nucleus (series 12 image 21) and left thalamus keeping with remote microhemorrhage. Normal [facility] PLATELET COUNTon 07-16-2021 Platelet mean volume (Bld) [Entitic vol] 10.5 fL Normal 8.7-12.3 [facility] Comment on above: Performed By: #### H EMO #### [facility] (DEFAULT) [address] [place] [phone] Platelets (Bld) [#/Vol] 150 10*3/uL Normal 146-337 [facility] Comment on above: Performed By: #### H EMOGC #### [facility] (DEFAULT) [address] [place] [phone] Interpretation and review of laboratory results Normal [facility] Platelet mean volume (Bld) [Entitic vol] 10.5 fL 8.7 - 12.3 fL [facility] Platelets (Bld) [#/Vol] 150 10*3/uL 146 - 337 K/uL [facility] CARDIAC RHYTHM (SCANNED)on 0 07-15-2021 [facility] CBC,PLATELETSon 07-15-2021 Hematocrit (Bld) [Volume fraction] 39.2 % Low 39.6-48.8 [facility] Comment on above: Performed By: #### H [facility] #### [facility] (DEFAULT) [address] [address] Hemoglobin (Bld) [Mass/Vol] 13.4 g/dL Normal 13.4-16.8 [facility] Comment on above: Performed By: #### H EMO #### [facility] (DEFAULT) [address] [place] [address] MCV (RBC) [Entitic vol] 89.1 fL Normal 79.0-94.5 [facility] Comment on above: Performed By: #### H EMOGC #### [facility] (DEFAULT) [address] [address] Mean Cell Hgb 30.5 pg Normal 26.1-33.3 [facility] Comment on above: Performed By: #### H EMOGC #### [facility] (DEFAULT) [address] [place] [address] Mean Cell Hgb Conc 34.2 g/dL Normal 31.9-36.5 [facility] Comment on above: Performed By: #### H EMOGC #### [facility] (DEFAULT) [address] [place] [address] Platelet mean volume (Bld) [Entitic vol] 10.4 fL Normal 8.7-12.3 [facility] Comment on above: Performed By: #### H EMOGC #### [facility] (DEFAULT) [address] [place] [address] Platelets (Bld) [#/Vol] 133 10*3/uL Low 146-337 [facility] Comment on above: Performed By: #### H EMOGC #### [facility] (DEFAULT) [address] [place] [address] RBC (Bld) [#/Vol] 4.40 10*6/uL Normal 4.38-5.83 [facility] Comment on above: Performed By: #### H EMOGC #### [facility] (DEFAULT) [address] [place] [address] RBC Distribution 13.8 % Normal 10.9-14.3 [facility] Comment on above: Performed By: #### H EMOGC #### [facility] (DEFAULT) [address] [place] [address] WBC (Bld) [#/Vol] 9.04 10*3/uL Normal 3.73-10.10 [facility] Comment on above: Performed By: #### H EMOGC #### [facility] (DEFAULT) [address] [place] [address] Erythrocyte distribution width (RBC) [Ratio] 13.8 % 10.9 - 14.3 % [facility] Hematocrit (Bld) [Volume fraction] 39.2 % Low 39.6 - 48.8 % [facility] Hemoglobin (Bld) [Mass/Vol] 13.4 g/dL 13.4 - 16.8 g/dL [facility] Interpretation and review of laboratory results Abnormal [facility] MCH (RBC) [Entitic mass] 30.5 pg 26.1 - 33.3 pg [facility] MCHC (RBC) [Mass/Vol] 34.2 g/dL 31.9 - 36.5 g/dL [facility] MCV (RBC) [Entitic vol] 89.1 fL 79.0 - 94.5 fL [facility] Platelet mean volume (Bld) [Entitic vol] 10.4 fL 8.7 - 12.3 fL [facility] Platelets (Bld) [#/Vol] 133 10*3/uL Low 146 - 337 K/uL [facility] RBC (Bld) [#/Vol] 4.40 10*6/uL [facility] WBC (Bld) [#/Vol] 9.04 10*3/uL 3.73 - 10.10 K/uL [facility] CHEM 7 (LYTES,BUN,CREA,GLUC) on 07-15-2021 Anion gap [Moles/Vol] 14 mmol/L Normal 7-17 [facility] Comment on above: Performed By: #### A 1CB #### [facility] (DEFAULT) [address] [address] Chloride [Moles/Vol] 106 mmol/L Normal 98-108 [facility] Comment on above: Performed By: #### A 1CB #### [facility] (DEFAULT) [address] [place] [address] CO2 [Moles/Vol] 22 mmol/L Normal 21-31 [facility] Comment on above: Performed By: #### A 1CB #### [facility] (DEFAULT) [address] [place] [address] Creatinine [Mass/Vol] 0.93 mg/dL Normal 0.70-1.30 [facility] Comment on above: Performed By: #### A 1CB #### [facility] (DEFAULT) [address] [place] [address] GFR/1.73 sq M.predicted among non-blacks MDRD (S/P/Bld) [Vol rate/Area] 86 mL/min/{1.73_m2} Normal >=60 [facility] Comment on above: Result Comment: Repo rted eGFR is based on the CKD-EPI 2020 equation using creatinine, age, and sex. Performed By: #### A 1CB #### [facility] (DEFAULT) [address] [place] [address] Glucose [Mass/Vol] 125 mg/dL High 70-99 [facility] Comment on above: Performed By: #### A 1CB #### [facility] (DEFAULT) [address] [place] [address] Osmolality [Osmolality] 290 mosm/kg Normal 278-305 [facility] Comment on above: Performed By: #### A 1CB #### [facility] (DEFAULT) [address] [place] [address] Potassium [Moles/Vol] 3.5 mmol/L Normal 3.5-5.0 [facility] Comment on above: Performed By: #### A 1CB #### [facility] (DEFAULT) [address] [place] [address] Sodium [Moles/Vol] 138 mmol/L Normal 135-145 [facility] Comment on above: Performed By: #### A 1CB #### [facility] (DEFAULT) [address] [place] [address] Urea nitrogen [Mass/Vol] 14 mg/dL Normal 7-25 [facility] Comment on above: Performed By: #### A 1CB #### [facility] (DEFAULT) [address] [place] [address] Urea nitrogen/Creatinine [Mass ratio] 15 mg/mg Normal [facility] Comment on above: Performed By: #### A 1CB #### [facility] (DEFAULT) [address] [place] [address] Anion gap [Moles/Vol] 14 mmol/L 7 - 17 mmol/L [facility] Chloride [Moles/Vol] 106 mmol/L 98 - 10 8 mmol/L [facility] CO2 [Moles/Vol] 22 mmol/L 21 - 31 mmol/L [facility] Creatinine [Mass/Vol] 0.93 mg/dL 0.70 - 1.30 mg/dL [facility] GFR/1.73 sq M.predicted CKD-EPI (S/P/Bld) [Vol rate/Area] 86 >=60 mL/min/1.7 3m2 [facility] Comment on above: Reported eGFR is bas ed on the CKD-EPI 2020 equation using creatinine, age, and sex. Glucose [Mass/Vol] 125 mg/dL High 70 - 99 mg/dL [facility] Interpretation and review of laboratory results Abnormal [facility] Osmolality Calc [Osmolality] 290 [facility] Potassium [Moles/Vol] 3.5 mmol/L 3.5 - 5.0 mmol/L [facility] Sodium [Moles/Vol] 138 mmol/L 135 - 145 mmol/L [facility] Urea nitrogen [Mass/Vol] 14 mg/dL 7 - 25 mg/dL [facility] Urea nitrogen/Creatinine [Mass ratio] 15 mg/mg [facility] CBC,PLATELETSon 07-14-2021 Hematocrit (Bld) [Volume fraction] 39.8 % Normal 39.6-48.8 [facility] Comment on above: Performed By: #### H [facility] #### [facility] (DEFAULT) [address] [address] Hemoglobin (Bld) [Mass/Vol] 13.3 g/dL Low 13.4-16.8 [facility] Comment on above: Performed By: #### H [facility] #### [facility] (DEFAULT) [address] [address] MCV (RBC) [Entitic vol] 91.1 fL Normal 79.0-94.5 [facility] Comment on above: Performed By: #### H EMOSERINA #### [facility] (DEFAULT) [address] [address] Mean Cell Hgb 30.4 pg Normal 26.1-33.3 [facility] Comment on above: Performed By: #### H EMOSERINA #### [facility] (DEFAULT) [address] [address] Mean Cell Hgb Conc 33.4 g/dL Normal 31.9-36.5 [facility] Comment on above: Performed By: #### H EMOSERINA #### [facility] (DEFAULT) [address] [address] Mean Platelet Volume Normal [facility] Comment on above: Result Comment: Not measured Performed By: #### H EMOSERINA #### [facility] (DEFAULT) [address] [address] Platelets (Bld) [#/Vol] 133 10*3/uL Low 146-337 [facility] Comment on above: Performed By: #### H EMOSERINA #### [facility] (DEFAULT) [address] [address] RBC (Bld) [#/Vol] 4.37 10*6/uL Low 4.38-5.83 [facility] Comment on above: Performed By: #### H EMOSERINA #### [facility] (DEFAULT) [address] [address] RBC Distribution 14.2 % Normal 10.9-14.3 [facility] Comment on above: Performed By: #### H EMOSERINA #### [facility] (DEFAULT) [address] [address] WBC (Bld) [#/Vol] 9.52 10*3/uL Normal 3.73-10.10 [facility] Comment on above: Performed By: #### H EMOSERINA #### [facility] (DEFAULT) [address] [place] [address] Erythrocyte distribution width (RBC) [Ratio] 14.2 % 10.9 - 14.3 % [facility] Hematocrit (Bld) [Volume fraction] 39.8 % 39.6 - 48.8 % [facility] Hemoglobin (Bld) [Mass/Vol] 13.3 g/dL Low 13.4 - 16.8 g/dL [facility] Interpretation and review of laboratory results Abnormal [facility] MCH (RBC) [Entitic mass] 30.4 pg 26.1 - 33.3 pg [facility] MCHC (RBC) [Mass/Vol] 33.4 g/dL 31.9 - 36.5 g/dL [facility] MCV (RBC) [Entitic vol] 91.1 fL 79.0 - 94.5 fL [facility] Platelet mean volume (Bld) [Entitic vol] [facility] Comment on above: Not measured Platelets (Bld) [#/Vol] 133 10*3/uL Low 146 - 337 K/uL [facility] RBC (Bld) [#/Vol] 4.37 10*6/uL Low [facility] WBC (Bld) [#/Vol] 9.52 10*3/uL 3.73 - 10.10 K/uL [facility] CHEM 7 (LYTES,BUN,CREA,GLUC) on 07-14-2021 Anion gap [Moles/Vol] 13 mmol/L Normal 7-17 [facility] Comment on above: Performed By: #### C HM7 #### [facility] (DEFAULT) [address] [place] [address] Chloride [Moles/Vol] 107 mmol/L Normal 98-108 [facility] Comment on above: Performed By: #### C HM7 #### [facility] (DEFAULT) [address] [place] [address] CO2 [Moles/Vol] 23 mmol/L Normal 21-31 [facility] Comment on above: Performed By: #### C HM7 #### [facility] (DEFAULT) [address] [address] Creatinine [Mass/Vol] 1.09 mg/dL Normal 0.70-1.30 [facility] Comment on above: Performed By: #### C HM7 #### [facility] (DEFAULT) [address] [address] GFR/1.73 sq M.predicted among non-blacks MDRD (S/P/Bld) [Vol rate/Area] 71 mL/min/{1.73_m2} Normal >=60 [facility] Comment on above: Result Comment: Repo rted eGFR is based on the CKD-EPI 2020 equation using creatinine, age, and sex. Performed By: #### C HM7 #### [facility] (DEFAULT) [address] [address] Glucose [Mass/Vol] 110 mg/dL High 70-99 [facility] Comment on above: Performed By: #### C HM7 #### [facility] (DEFAULT) [address] [address] Osmolality [Osmolality] 292 mosm/kg Normal 278-305 [facility] Comment on above: Performed By: #### C HM7 #### [facility] (DEFAULT) [address] [address] Potassium [Moles/Vol] 3.7 mmol/L Normal 3.5-5.0 [facility] Comment on above: Performed By: #### C HM7 #### [facility] (DEFAULT) [address] [address] Sodium [Moles/Vol] 139 mmol/L Normal 135-145 [facility] Comment on above: Performed By: #### C HM7 #### [facility] (DEFAULT) [address] [address] Urea nitrogen [Mass/Vol] 15 mg/dL Normal 7-25 [facility] Comment on above: Performed By: #### C HM7 #### [facility] (DEFAULT) [address] [place] [address] Urea nitrogen/Creatinine [Mass ratio] 14 mg/mg Normal [facility] Comment on above: Performed By: #### C HM7 #### [facility] (DEFAULT) [address] [place] [address] Anion gap [Moles/Vol] 13 mmol/L 7 - 17 mmol/L [facility] [facility] Chloride [Moles/Vol] 107 mmol/L 98 - 10 8 mmol/L [facility] CO2 [Moles/Vol] 23 mmol/L 21 - 31 mmol/L [facility] Creatinine [Mass/Vol] 1.09 mg/dL 0.70 - 1.30 mg/dL [facility] GFR/1.73 sq M.predicted CKD-EPI (S/P/Bld) [Vol rate/Area] 71 >=60 mL/min/1.7 3m2 [facility] Comment on above: Reported eGFR is bas ed on the CKD-EPI 2020 equation using creatinine, age, and sex. Glucose [Mass/Vol] 110 mg/dL High 70 - 99 mg/dL [facility] Interpretation and review of laboratory results Abnormal [facility] Osmolality Calc [Osmolality] 292 [facility] Potassium [Moles/Vol] 3.7 mmol/L 3.5 - 5.0 mmol/L [facility] Sodium [Moles/Vol] 139 mmol/L 135 - 145 mmol/L [facility] Urea nitrogen [Mass/Vol] 15 mg/dL 7 - 25 mg/dL [facility] Urea nitrogen/Creatinine [Mass ratio] 14 mg/mg [facility] CT Head limitedon 07-14-2021 IMPRESSION: Acute left MCA territory infarct involving primarily the left parietal lobe. No obvious hemorrhagic conversion. Findings were discussed with Dr. Jaxon Dahl on 07/12/2021 at 11:46 AM. I personally viewed and interpreted these images and I have reviewed and approved this report. OLOGY EXAM: CT STROKE HEAD-STROKE ALERT ONLY, 07/12/2021 11:42 AM COMPARISON: None. CLINICAL INDICATIONS: 76 years Male Suspected Stroke; RELEVANT CLINICAL HISTORY: Last known well 8:30 AM; aphasia; right-sided weakness; TPA given at 10:00 AM TECHNIQUE: A series of transaxial computerized tomographic images are obtained from base of skull to vertex without intravenous contrast. Axial whole-head and thin section posterior fossa slices are provided. Reformats: Sagittal and coronal. FINDINGS: Acute left MCA territory infarct involving the parietal and temporal lobes as well as the posterior insula and likely the deep white matter. No obvious hemorrhage. Dual-energy post processing with virtual noncontrast images and iodine map demonstrates that there is any contrast within the vascular system. On the virtual noncontrast images there is slightly more conspicuous/convincing wedge-shaped infarct in the left parietal lobe. There is no abnormal extracerebral collection. No ventriculomegaly. There is no mass effect or midline shift. Calvaria and skull base appear intact. Visualized paranasal sinuses show no air-fluid levels. Visualized orbits are unremarkable. RADIOLOGY Carlos Cruz M D - 07/14/2021 EXAM: CT STROKE HEAD-STROKE ALERT ONLY, 07/12/2021 11:42 AM COMPARISON: None. CLINICAL INDICATIONS: 76 years Male Suspected Stroke; RELEVANT CLINICAL HISTORY: Last known well 8:30 AM; aphasia; right-sided weakness; TPA given at 10:00 AM TECHNIQUE: A series of transaxial computerized tomographic images are obtained from base of skull to vertex without intravenous contrast. Axial whole-head and thin section posterior fossa slices are provided. Reformats: Sagittal and coronal. FINDINGS: Acute left MCA territory infarct involving the parietal and temporal lobes as well as the posterior insula and likely the deep white matter. No obvious hemorrhage. Dual-energy post processing with virtual noncontrast images and iodine map demonstrates that there is any contrast within the vascular system. On the virtual noncontrast images there is slightly more conspicuous/convincing wedge-shaped infarct in the left parietal lobe. There is no abnormal extracerebral collection. No ventriculomegaly. There is no mass effect or midline shift. Calvaria and skull base appear intact. Visualized paranasal sinuses show no air-fluid levels. Visualized orbits are unremarkable. IMPRESSION IMPRESSION: Acute left MCA territory infarct involving primarily the left parietal lobe. No obvious hemorrhagic conversion. Findings were discussed with Dr. Jaxon Dahl on 07/12/2021 at 11:46 AM. I personally viewed and interpreted these images and I have reviewed and approved this report. [facility] CT Head limitedOrdered By: Jessica Cruz on 07-14-2021 [facility] Work Phone: CT STROKE HEAD-STROKE ALERT ONLYon 07-14-2021 CT STROKE HEAD-STROKE ALERT ONLY EXAM: CT STROKE HEAD-STROKE ALERT ONLY, 07/12/2021 11:42 AM COMPARISON: None. CLINICAL INDICATIONS: 76 years Male Suspected Stroke; RELEVANT CLINICAL HISTORY: Last known well 8:30 AM; aphasia; right-sided weakness; TPA given at 10:00 AM TECHNIQUE: A series of transaxial computerized tomographic images are obtained from base of skull to vertex without intravenous contrast. Axial whole-head and thin section posterior fossa slices are provided. Reformats: Sagittal and coronal. FINDINGS: Acute left MCA territory infarct involving the parietal and temporal lobes as well as the posterior insula and likely the deep white matter. No obvious hemorrhage. Dual-energy post processing with virtual noncontrast images and iodine map demonstrates that there is any contrast within the vascular system. On the virtual noncontrast images there is slightly more conspicuous/convincing wedge-shaped infarct in the left parietal lobe. There is no abnormal extracerebral collection. No ventriculomegaly. There is no mass effect or midline shift. Calvaria and skull base appear intact. Visualized paranasal sinuses show no air-fluid levels. Visualized orbits are unremarkable. 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 No obvious hemorrhagic conversion. Findings were discussed with Dr. Jaxon Dahl on 07/12/2021 at 11:46 AM. I personally viewed and interpreted these images and I have reviewed and approved this report. Normal [facility] DEVICE EVALUATION (SCANNED)o n 07-14-2021 [facility] No Panel Informationon 07-14 [facility] URINE CULTUREOrdered By: Kia Martínez on 07-14-2021 Bacteria identified Cx Nom (Unsp spec) Growth [facility] Bacteria identified Cx Nom (Unsp spec) GROUP B STREPTOCOCCUS Abnormal [facility] Comment on above: Susceptibilities not routinely performed. Interpretation and review of laboratory results Abnormal [facility] CBC,PLATELETSon 07-13-2021 Hematocrit (Bld) [Volume fraction] 41.5 % Normal 39.6-48.8 [facility] Comment on above: Performed By: #### A 1CB #### [facility] (DEFAULT) [address] [place] [phone] Hemoglobin (Bld) [Mass/Vol] 13.6 g/dL Normal 13.4-16.8 [facility] Comment on above: Performed By: #### A 1CB #### [facility] (DEFAULT) [address] [place] [address] 10428 MCV (RBC) [Entitic vol] 90.8 fL Normal 79.0-94.5 [facility] Comment on above: Performed By: #### A 1CB #### [facility] (DEFAULT) [address] [place] [address] 25290 Mean Cell Hgb 29.8 pg Normal 26.1-33.3 [facility] Comment on above: Performed By: #### A 1CB #### [facility] (DEFAULT) [address] [place] [address] 56251 Mean Cell Hgb Conc 32.8 g/dL Normal 31.9-36.5 [facility] Comment on above: Performed By: #### A 1CB #### [facility] (DEFAULT) [address] [place] [address] 20473 Platelet mean volume (Bld) [Entitic vol] 10.6 fL Normal 8.7-12.3 [facility] Comment on above: Performed By: #### A 1CB #### [facility] (DEFAULT) [address] [place] [address] 70717 Platelets (Bld) [#/Vol] 149 10*3/uL Normal 146-337 [facility] Comment on above: Performed By: #### A 1CB #### [facility] (DEFAULT) [address] [place] [address] 38078 RBC (Bld) [#/Vol] 4.57 10*6/uL Normal 4.38-5.83 [facility] Comment on above: Performed By: #### A 1CB #### [facility] (DEFAULT) [address] [place] [address] 93915 RBC Distribution 14.2 % Normal 10.9-14.3 [facility] Comment on above: Performed By: #### A 1CB #### [facility] (DEFAULT) [address] [place] [address] 73212 WBC (Bld) [#/Vol] 11.39 10*3/uL High 3.73-10.10 [facility] Comment on above: Performed By: #### A 1CB #### [facility] (DEFAULT) [address] [place] [address]31 Erythrocyte distribution width (RBC) [Ratio] 14.2 % 10.9 - 14.3 % [facility] Hematocrit (Bld) [Volume fraction] 41.5 % 39.6 - 48.8 % [facility] Hemoglobin (Bld) [Mass/Vol] 13.6 g/dL 13.4 - 16.8 g/dL [facility] Interpretation and review of laboratory results Abnormal [facility] MCH (RBC) [Entitic mass] 29.8 pg 26.1 - 33.3 pg [facility] MCHC (RBC) [Mass/Vol] 32.8 g/dL 31.9 - 36.5 g/dL [facility] MCV (RBC) [Entitic vol] 90.8 fL 79.0 - 94.5 fL [facility] Platelet mean volume (Bld) [Entitic vol] 10.6 fL 8.7 - 12.3 fL [facility] Platelets (Bld) [#/Vol] 149 10*3/uL 146 - 337 K/uL [facility] RBC (Bld) [#/Vol] 4.57 10*6/uL [facility] WBC (Bld) [#/Vol] 11.39 10*3/uL High 3.73 - 10.10 K/uL [facility] CHEM 7 (LYTES,BUN,CREA,GLUC) on 07-13-2021 Anion gap [Moles/Vol] 13 mmol/L Normal 7-17 [facility] Comment on above: Performed By: #### U R #### [facility] (DEFAULT) [address] [place] [address]1519 Chloride [Moles/Vol] 108 mmol/L Normal 98-108 [facility] Comment on above: Performed By: #### U R #### [facility] (DEFAULT) [address] [place] [address] 44581 CO2 [Moles/Vol] 23 mmol/L Normal 21-31 [facility] Comment on above: Performed By: #### U R #### [facility] (DEFAULT) [address] [place] [address]57 Creatinine [Mass/Vol] 1.20 mg/dL Normal 0.70-1.30 [facility] Comment on above: Performed By: #### U R #### [facility] (DEFAULT) [address] [address] GFR/1.73 sq M.predicted among non-blacks MDRD (S/P/Bld) [Vol rate/Area] 63 mL/min/{1.73_m2} Normal >=60 [facility] Comment on above: Result Comment: Repo rted eGFR is based on the CKD-EPI 2020 equation using creatinine, age, and sex. Performed By: #### U R #### [facility] (DEFAULT) [address] [place] [address]28 Glucose [Mass/Vol] 112 mg/dL High 70-99 [facility] Comment on above: Performed By: #### U R #### [facility] (DEFAULT) [address] [place] [address]275 Osmolality [Osmolality] 295 mosm/kg Normal 278-305 [facility] Comment on above: Performed By: #### U R #### [facility] (DEFAULT) [address] [place] [address] 32432 Potassium [Moles/Vol] 3.8 mmol/L Normal 3.5-5.0 [facility] Comment on above: Performed By: #### U R #### [facility] (DEFAULT) [address] [place] [address] 36943 Sodium [Moles/Vol] 140 mmol/L Normal 135-145 [facility] Comment on above: Performed By: #### U R #### [facility] (DEFAULT) [address] [place] [address] 55513 Urea nitrogen [Mass/Vol] 18 mg/dL Normal 7-25 [facility] Comment on above: Performed By: #### U R #### [facility] (DEFAULT) [address] [place] [address] 85725 Urea nitrogen/Creatinine [Mass ratio] 15 mg/mg Normal [facility] Comment on above: Performed By: #### U R #### [facility] (DEFAULT) [address] [place] [address] 49581 Anion gap [Moles/Vol] 13 mmol/L 7 - 17 mmol/L [facility] Chloride [Moles/Vol] 108 mmol/L 98 - 10 8 mmol/L [facility] CO2 [Moles/Vol] 23 mmol/L 21 - 31 mmol/L [facility] Creatinine [Mass/Vol] 1.20 mg/dL 0.70 - 1.30 mg/dL [facility] GFR/1.73 sq M.predicted CKD-EPI (S/P/Bld) [Vol rate/Area] 63 >=60 mL/min/1.7 3m2 [facility] Comment on above: Reported eGFR is bas ed on the CKD-EPI 2020 equation using creatinine, age, and sex. Glucose [Mass/Vol] 112 mg/dL High 70 - 99 mg/dL [facility] Osmolality Calc [Osmolality] 295 [facility] Potassium [Moles/Vol] 3.8 mmol/L 3.5 - 5.0 mmol/L [facility] Sodium [Moles/Vol] 140 mmol/L 135 - 145 mmol/L [facility] Urea nitrogen [Mass/Vol] 18 mg/dL 7 - 25 mg/dL [facility] Urea nitrogen/Creatinine [Mass ratio] 15 [facility] HEAD WITHOUT CONTRASTon 0 07-13-2021 CT HEAD WITHOUT CONTRAST EXAM: CT HEAD WITHOUT CONTRAST, 07/13/2021 10:10 AM COMPARISON: Comparison is made to prior CT of the head from July 12, 2021. CLINICAL INDICATIONS: 76 years Male Stroke, follow up; s/p tPA; RELEVANT CLINICAL HISTORY: To be scheduled 24 hours post admission.; TECHNIQUE: A series of transaxial computerized tomographic images are obtained from base of skull to vertex without intravenous contrast. Axial whole-head and thin section posterior fossa slices are provided. Reformats: Sagittal and coronal. FINDINGS: Interval progression in the loss of john-white matter differentiation involving the left parietal occipital and temporal lobes. Dose interval development of a wedge-shaped area of hypoattenuation involving predominantly the left occipital lobe. Focal hypodensity involving the left basal ganglia and left mcdermott radiata is also more conspicuous in comparison to previous examination. No evidence of hemorrhagic transformation. No hyperdense extra-axial collection is noted. No hydrocephalus. 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 This is best seen on image 51 of series 6. No significant mass effect involving the posterior fossa structures. No air-fluid level within the visualized paranasal sinuses. No orbital mass is identified. The mastoids are clear. Skull base and calvarium appear intact. IMPRESSION: Interval progression in the loss of john-white matter differentiation involving the left cerebral hemisphere as well as progression/development of focal hypoattenuating areas involving the left basal ganglia/mcdermott radiata as well as the left occipital lobe. The findings are consistent with evolving infarcts. No evidence of hemorrhagic transformation. No significant midline shift. Normal [facility] CT Head WO contraston 2021 EXAM: CT HEAD WITHOU T CONTRAST, 07/13/2021 10:10 AM COMPARISON: Comparison is made to prior CT of the head from July 12, 2021. CLINICAL INDICATIONS: 76 years Male Stroke, follow up; s/p tPA; RELEVANT CLINICAL HISTORY: To be scheduled 24 hours post admission.; TECHNIQUE: A series of transaxial computerized tomographic images are obtained from base of skull to vertex without intravenous contrast. Axial whole-head and thin section posterior fossa slices are provided. Reformats: Sagittal and coronal. FINDINGS: Interval progression in the loss of john-white matter differentiation involving the left parietal occipital and temporal lobes. Dose interval development of a wedge-shaped area of hypoattenuation involving predominantly the left occipital lobe. Focal hypodensity involving the left basal ganglia and left mcdermott radiata is also more conspicuous in comparison to previous examination. No evidence of hemorrhagic transformation. No hyperdense extra-axial collection is noted. No hydrocephalus. 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 This is best seen on image 51 of series 6. No significant mass effect involving the posterior fossa structures. No air-fluid level within the visualized paranasal sinuses. No orbital mass is identified. The mastoids are clear. Skull base and calvarium appear intact. RADIOLOGY Paolo Puri MD, MPH - 07/13/2021 EXAM: CT HEAD WITHOUT CONTRAST, 07/13/2021 10:10 AM COMPARISON: Comparison is made to prior CT of the head from July 12, 2021. CLINICAL INDICATIONS: 76 years Male Stroke, follow up; s/p tPA; RELEVANT CLINICAL HISTORY: To be scheduled 24 hours post admission.; TECHNIQUE: A series of transaxial computerized tomographic images are obtained from base of skull to vertex without intravenous contrast. Axial whole-head and thin section posterior fossa slices are provided. Reformats: Sagittal and coronal. FINDINGS: Interval progression in the loss of john-white matter differentiation involving the left parietal occipital and temporal lobes. Dose interval development of a wedge-shaped area of hypoattenuation involving predominantly the left occipital lobe. Focal hypodensity involving the left basal ganglia and left mcdermott radiata is also more conspicuous in comparison to previous examination. No evidence of hemorrhagic transformation. No hyperdense extra-axial collection is noted. No hydrocephalus. 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 This is best seen on image 51 of series 6. No significant mass effect involving the posterior fossa structures. No air-fluid level within the visualized paranasal sinuses. No orbital mass is identified. The mastoids are clear. Skull base and calvarium appear intact. IMPRESSION IMPRESSION: Interval progression in the loss of john-white matter differentiation involving the left cerebral hemisphere as well as progression/development of focal hypoattenuating areas involving the left basal ganglia/mcdermott radiata as well as the left occipital lobe. The findings are consistent with evolving infarcts. No evidence of hemorrhagic transformation. No significant midline shift. [facility] Radiology Study observation (narrative) [facility] CT Head WO contrastOrdered B y: Paolo Puri on 07-13-2021 [facility] Work Phone: EXTRA MICROon 07-13-2021 [facility] FIBRINOGEN, CLOTTABLEon 05-0 Fibrinogen-Clottable 246 mg/dL Normal 220-410 [facility] Comment on above: Result Comment: Func tional Fibrinogen (activity) levels can be affected by direct thrombin inhibitors such as heparins (>2.0 IU/ml) and dabigatran. Abnormal results should be interpreted with caution. Performed By: #### A 1CB #### [facility] (DEFAULT) [address] [place] [address] Fibrinogen Coag (PPP) [Mass/Vol] 246 mg/dL 220 - 410 mg/dL [facility] Comment on above: Functional Fibrinoge n (activity) levels can be affected by direct thrombin inhibitors such as heparins (>2.0 IU/ml) and dabigatran. Abnormal results should be interpreted with caution. Interpretation and review of laboratory results Normal [facility] HEMOGLOBIN [id number] By: Won Hernández on 07-13-2021 Average glucose Estimated from glycated hemoglobin (Bld) [Mass/Vol] 103 mg/dL [facility] HbA1c (Bld) [Mass fraction] 5.2 % 4.7 - 5.6 % [facility] HEMOGLOBIN A1Con 07-13-2021 Glucose [Mass/Vol] 103 mg/dL Normal [facility] Comment on above: Performed By: #### A 1CB #### [facility] (DEFAULT) [address] [address] HbA1c (Bld) [Mass fraction] 5.2 % Normal 4.7-5.6 [facility] Comment on above: Performed By: #### A 1CB #### [facility] (DEFAULT) [address] [address] LIPID PANEL WITH REFLEX TO M EASURED LDLon 07-13-2021 Calculated LDL Cholesterol 90 mg/dL Normal 0-99 [facility] Comment on above: Result Comment: [<10 0 mg/dL: Optimal] [100-129 mg/dL: Near Optimal] [130-159 mg/dL: Borderline High] [160-189 mg/dL: High] [>189 mg/dL: Very High] Performed By: #### U R #### [facility] (DEFAULT) [address] [address] Cholesterol [Mass/Vol] 139 mg/dL Normal <200 [facility] Comment on above: Result Comment: [<20 0 mg/dL: Desirable] [200-239 mg/dL: Borderline High] [>239 mg/dL: High] Performed By: #### U R #### [facility] (DEFAULT) [address] [address] Cholesterol in HDL [Mass/Vol] 32 mg/dL Low >=40 [facility] Comment on above: Result Comment: [<40 mg/dL: Low (High Risk)] [>59 mg/dL: High (Low Risk)] Performed By: #### U R #### [facility] (DEFAULT) [address] [place] [address] 19031 Non HDL Cholesterol 107 mg/dL Normal <130 [facility] Comment on above: Performed By: #### U R #### [facility] (DEFAULT) [address] [place] [address] Total Cholesterol/HDL Ratio 4.3 Normal <4.5 [facility] Comment on above: Performed By: #### U R #### [facility] (DEFAULT) [address] [place] [address] Triglyceride [Mass/Vol] 83 mg/dL Normal <150 [facility] Comment on above: Result Comment: [<15 0 mg/dL: Desirable] [150-199 mg/dL: Borderline] [200-499 mg/dL: High] [>500 mg/dL: Very High] Performed By: #### U R #### [facility] (DEFAULT) [address] [place] [address] Cholesterol [Mass/Vol] 139 mg/dL <200 [facility] Comment on above: [<200 mg/dL: Desirab le] [200-239 mg/dL: Borderline High] [>239 mg/dL: High] Cholesterol in HDL [Mass/Vol] 32 mg/dL Low >=40 [facility] Comment on above: [<40 mg/dL: Low (Hig h Risk)] [>59 mg/dL: High (Low Risk)] Cholesterol in HDL [Mass/Vol] 107 mg/dL <130 [facility] Cholesterol in LDL [Mass/Vol] 90 mg/dL 0 - 99 mg/dL [facility] Comment on above: [<100 mg/dL: Optimal ] [100-129 mg/dL: Near Optimal] [130-159 mg/dL: Borderline High] [160-189 mg/dL: High] [>189 mg/dL: Very High] Cholesterol.total/Edita sterol in HDL [Mass ratio] 4.3 {ratio} <4.5 [facility] Triglyceride [Mass/Vol] 83 mg/dL <150 [facility] Comment on above: [<150 mg/dL: Desirab le] [150-199 mg/dL: Borderline] [200-499 mg/dL: High] [>500 mg/dL: Very High] LT BLUE TOP TUBEon [facility] MAGNESIUMon 07-13-2021 Magnesium [Mass/Vol] 2.2 mg/dL Normal 1.6-2.6 [facility] Comment on above: Performed By: #### U R #### [facility] (DEFAULT) [address] [place] [address] Interpretation and review of laboratory results Normal [facility] Magnesium [Mass/Vol] 2.2 mg/dL 1.6 - 2 .6 mg/dL [facility] No Panel Informationon 07-13 Interpretation and review of laboratory results Abnormal [facility] Absolute lymphocyte counton 07-12-2021 Lymphocytes Auto (Unsp spec) [#/Vol] 1.19 10*3/uL 0.83-4.51 [facility] Work Phone: Basophil percentageon 2021 Basophils/100 WBC (Bld) 0.5 % 0-1 [facility] Work Phone: Chloride [Moles/Vol] 110 mmol/L 98-107 [facility] Work Phone: Eosinophils/100 WBC (Bld) 2.9 % 0-5 [facility] Work Phone: Glucose [Mass/Vol] 119 mg/dL 74-106 [facility] Work Phone: Comment on above: Fasting Glucose resu lt from 100 to 125 mg/dL suggests IMPAIRED HOMEOSTASIS per A.D.A. criteria. Neutrophils (Bld) [#/Vol] 4.3 10*3/uL 2.0-7.7 [facility] Work Phone: Neutrophils/100 WBC (Bld) 68.6 % 47-70 [facility] Work Phone: Potassium [Moles/Vol] 3.6 mmol/L 3.5-5.1 [facility] Work Phone: Sodium [Moles/Vol] 139 mmol/L 136-145 [facility] Work Phone: WBC (Bld) [#/Vol] 6.2 10*3/uL 4.4-11.0 [facility] Work Phone: Blood erythrocytes count (nu mber/volume)on 07-12-2021 RBC (Bld) [#/Vol] 4.22 10*6/uL 4.6-6.2 [facility] Work Phone: Blood hemoglobin measurement (mass/volume)on 07-12-2021 Hemoglobin (Bld) [Mass/Vol] 12.8 g/dL 13.0-16.5 [facility] Work Phone: Blood lymphocytes/100 leukoc yteson 07-12-2021 Lymphocytes/100 WBC (Bld) 19.2 % 19-41 [facility] Work Phone: Blood monocytes/100 leukocyt eson 07-12-2021 Monocytes/100 WBC (Bld) 8.2 % 0-10 [facility] Work Phone: Blood platelet mean volumeon 07-12-2021 Platelet mean volume (Bld) [Entitic vol] 10.7 fL 6.2-12.0 [facility] Work Phone: CBC AND ELECTRONIC DIFFon Basophils (Bld) [#/Vol] 10*3/uL Normal 0.00-0.09 [facility] Comment on above: Performed By: #### [facility] #### [facility] (DEFAULT) [address] [place] [address] Basophils/100 WBC (Bld) 0.3 % Normal [facility] Comment on above: Performed By: #### H EMOGC #### [facility] (DEFAULT) [address] [address] DIFF STATUS Electronic Differential Normal [facility] Comment on above: Performed By: #### H EMOGC #### [facility] (DEFAULT) [address] [place] [phone] Eosinophils (Bld) [#/Vol] 0.09 10*3/uL Normal 0.00-0.48 [facility] Comment on above: Performed By: #### H EMOGC #### [facility] (DEFAULT) [address] [address] Eosinophils/100 WBC (Bld) 0.9 % Normal [facility] Comment on above: Performed By: #### H EMOGC #### [facility] (DEFAULT) [address] [address] Hematocrit (Bld) [Volume fraction] 43.7 % Normal 39.6-48.8 [facility] Comment on above: Performed By: #### H EMOGC #### [facility] (DEFAULT) [address] [address] Hemoglobin (Bld) [Mass/Vol] 14.7 g/dL Normal 13.4-16.8 [facility] Comment on above: Performed By: #### H EMOGC #### [facility] (DEFAULT) [address] [address] Immature Grans % 0.5 % Normal [facility] Comment on above: Performed By: #### H EMOGC #### [facility] (DEFAULT) [address] [address] Immature Grans Absolute 0.05 K/uL Normal <=0.08 [facility] Comment on above: Performed By: #### H EMOGC #### [facility] (DEFAULT) [address] [place] [address] Lymphocytes (Bld) [#/Vol] 0.99 10*3/uL Normal 0.83-3.57 [facility] Comment on above: Performed By: #### H EMOGC #### [facility] (DEFAULT) [address] [address] Lymphocytes/100 WBC (Bld) 9.8 % Normal [facility] Comment on above: Performed By: #### H EMOGC #### [facility] (DEFAULT) [address] [address] MCV (RBC) [Entitic vol] 89.4 fL Normal 79.0-94.5 [facility] Comment on above: Performed By: #### H EMOGC #### [facility] (DEFAULT) [address] [address] Mean Cell Hgb 30.1 pg Normal 26.1-33.3 [facility] Comment on above: Performed By: #### H EMOGC #### [facility] (DEFAULT) [address] [address] Mean Cell Hgb Conc 33.6 g/dL Normal 31.9-36.5 [facility] Comment on above: Performed By: #### H EMOGC #### [facility] (DEFAULT) [address] [address] Monocytes (Bld) [#/Vol] 0.53 10*3/uL Normal 0.24-0.93 [facility] Comment on above: Performed By: #### H EMOGC #### [facility] (DEFAULT) [address] [address] Monocytes/100 WBC (Bld) 5.2 % Normal [facility] Comment on above: Performed By: #### H EMOGC #### [facility] (DEFAULT) [address] [address] Nucleated RBC 0.0 /100 WBC Normal <=0.2 [facility] Comment on above: Performed By: #### H EMOGC #### [facility] (DEFAULT) [address] [place] [address] Platelet mean volume (Bld) [Entitic vol] 11.1 fL Normal 8.7-12.3 [facility] Comment on above: Performed By: #### H EMOGC #### [facility] (DEFAULT) [address] [place] [address] Platelets (Bld) [#/Vol] 130 10*3/uL Low 146-337 [facility] Comment on above: Performed By: #### H EMOGC #### [facility] (DEFAULT) [address] [place] [address] RBC (Bld) [#/Vol] 4.89 10*6/uL Normal 4.38-5.83 [facility] Comment on above: Performed By: #### H EMOGC #### [facility] (DEFAULT) [address] [place] [address] RBC Distribution 14.0 % Normal 10.9-14.3 [facility] Comment on above: Performed By: #### H EMOGC #### [facility] (DEFAULT) [address] [place] [address] Segs + Bands Auto 83.3 % Normal [facility] Comment on above: Performed By: #### H EMOGC #### [facility] (DEFAULT) [address] [place] [address] Segs + Bands,Absolute Auto 8.41 K/uL High 1.57-6.19 [facility] Comment on above: Performed By: #### H EMOGC #### [facility] (DEFAULT) [address] [place] [address] WBC (Bld) [#/Vol] 10.10 10*3/uL Normal 3.73-10.10 [facility] Comment on above: Performed By: #### H EMOGC #### [facility] (DEFAULT) [address] [place] [address] Basophils (Bld) [#/Vol] 10*3/uL 0.00 - 0.09 K/uL [facility] Basophils/100 WBC (Bld) 0.3 % O [facility] Differential cell count method Nom (Bld) Electronic Differential [facility] Eosinophils (Bld) [#/Vol] 0.09 10*3/uL 0.00 - 0.48 K/uL [facility] Eosinophils/100 WBC (Bld) 0.9 % [facility] Erythrocyte distribution width (RBC) [Ratio] 14.0 % 10.9 - 14.3 % [facility] Hematocrit (Bld) [Volume fraction] 43.7 % 39.6 - 48.8 % [facility] Hemoglobin (Bld) [Mass/Vol] 14.7 g/dL 13.4 - 16.8 g/dL [facility] Immature granulocytes (Bld) [#/Vol] 0.05 10*3/uL <=0.08 [facility] Immature granulocytes/100 WBC (Bld) 0.5 % [facility] Interpretation and review of laboratory results Abnormal [facility] Lymphocytes (Bld) [#/Vol] 0.99 10*3/uL 0.83 - 3.57 K/uL [facility] Lymphocytes/100 WBC (Bld) 9.8 % [facility] MCH (RBC) [Entitic mass] 30.1 pg 26.1 - 33.3 pg [facility] MCHC (RBC) [Mass/Vol] 33.6 g/dL 31.9 - 36.5 g/dL [facility] MCV (RBC) [Entitic vol] 89.4 fL 79.0 - 94.5 fL [facility] Monocytes (Bld) [#/Vol] 0.53 10*3/uL 0.24 - 0.93 K/uL [facility] Monocytes/100 WBC (Bld) 5.2 % [facility] Neutrophils (Bld) [#/Vol] 8.41 10*3/uL High 1.57 - 6.19 K/uL [facility] Nucleated RBC/100 WBC (Bld) [Ratio] 0.0 % <=0.2 /100 WBC [facility] Platelet mean volume (Bld) [Entitic vol] 11.1 fL 8.7 - 12.3 fL [facility] Platelets (Bld) [#/Vol] 130 10*3/uL Low 146 - 337 K/uL [facility] RBC (Bld) [#/Vol] 4.89 10*6/uL [facility] Segmented neutrophils/100 WBC (Bld) 83.3 % [facility] WBC (Bld) [#/Vol] 10.10 10*3/uL 3.73 - 10.10 K/uL [facility] CHM 7 - EDon 07-12-2021 Anion gap [Moles/Vol] 14 mmol/L Normal 7-17 [facility] Comment on above: Performed By: #### [facility] #### [facility] (DEFAULT) [address] [address] Chloride [Moles/Vol] 107 mmol/L Normal 98-108 [facility] Comment on above: Performed By: #### [facility] #### [facility] (DEFAULT) [address] [address] CO2 [Moles/Vol] 20 mmol/L Low 21-31 [facility] Comment on above: Performed By: #### [facility] #### [facility] (DEFAULT) [address] [address] Creatinine [Mass/Vol] 1.16 mg/dL Normal 0.70-1.30 [facility] Comment on above: Performed By: #### [facility] #### [facility] (DEFAULT) [address] [address] GFR/1.73 sq M.predicted among non-blacks MDRD (S/P/Bld) [Vol rate/Area] 66 mL/min/{1.73_m2} Normal >=60 [facility] Comment on above: Result Comment: Repo rted eGFR is based on the CKD-EPI 2020 equation using creatinine, age, and sex. Performed By: #### H EMOGC #### [facility] (DEFAULT) [address] [place] [address] Glucose [Mass/Vol] 105 mg/dL High 70-99 [facility] Comment on above: Performed By: #### H EMOGC #### [facility] (DEFAULT) [address] [place] [address] Osmolality [Osmolality] 290 mosm/kg Normal 278-305 [facility] Comment on above: Performed By: #### H EMO #### [facility] (DEFAULT) [address] [place] [address] Potassium [Moles/Vol] 4.6 mmol/L Normal 3.5-5.0 [facility] Comment on above: Result Comment: Mode rate Hemolysis Performed By: #### H EMO #### [facility] (DEFAULT) [address] [place] [address] Sodium [Moles/Vol] 136 mmol/L Normal 135-145 [facility] Comment on above: Performed By: #### H EMO #### [facility] (DEFAULT) [address] [place] [address] Urea nitrogen [Mass/Vol] 21 mg/dL Normal 7-25 [facility] Comment on above: Performed By: #### H EMOGC #### [facility] (DEFAULT) [address] [place] [address] Urea nitrogen/Creatinine [Mass ratio] 18 mg/mg Normal [facility] Comment on above: Performed By: #### H EMOGC #### [facility] (DEFAULT) [address] [place] [address] Anion gap [Moles/Vol] 14 mmol/L 7 - 17 mmol/L [facility] Chloride [Moles/Vol] 107 mmol/L 98 - 10 8 mmol/L [facility] CO2 [Moles/Vol] 20 mmol/L Low 21 - 31 mmol/L [facility] Creatinine [Mass/Vol] 1.16 mg/dL 0.70 - 1.30 mg/dL [facility] GFR/1.73 sq M.predicted CKD-EPI (S/P/Bld) [Vol rate/Area] 66 >=60 mL[facility]min[facility]1.7 3[facility]2 [facility] Comment on above: Reported eGFR is bas ed on the CKD-EPI 2020 equation using creatinine, age, and sex. Glucose [Mass/Vol] 105 mg/dL High 70 - 99 mg/dL [facility] Osmolality Calc [Osmolality] 290 [facility] Potassium [Moles/Vol] 4.6 mmol/L 3.5 - 5.0 mmol/L [facility] Comment on above: Moderate Hemolysis Sodium [Moles/Vol] 136 mmol/L 135 - 145 mmol/L [facility] Urea nitrogen [Mass/Vol] 21 mg/dL 7 - 25 mg/dL [facility] Urea nitrogen/Creatinine [Mass ratio] 18 mg/mg [facility] CT ANGIO BRAIN/NECKon 2021 CT ANGIO BRAIN/NECK EXAM: CT ANGIO BRAIN/NECK, 07/12/2021 12:03 PM COMPARISON: Same day noncontrast CT head CLINICAL INDICATIONS: 76 years Male Suspected Stroke; RELEVANT CLINICAL HISTORY: Transfer from outside hospital after TPA given TECHNIQUE: A series of transaxial multislice computerized tomographic images are obtained with helical technique from top of aortic arch to vertex following bolus intravenous administration of nonionic contrast. Axial thin section source images, as well as sagittal and coronal thin section reformats, were provided at the scanner. Additional multiplanar and 3D reconstructions were provided. CONTRAST: iohexol (OMNIPAQUE) 350 MG/ML injection 1-171 mL; Route of Administration: Intravenous; Dose: 100 mL. FINDINGS: CTA NECK: Aortic Arch: There is conventional origin of the great vessels from the aortic arch, without origin stenosis. Carotid Arteries: The right common, internal and external carotid arteries are normal in caliber without evidence of dissection or pseudoaneurysm. Calcified atherosclerotic plaque without significant stenosis at the carotid bifurcation. Calcified atherosclerotic plaques of the proximal right internal carotid artery without significant stenosis. The left common, internal and external carotid arteries are normal in caliber without evidence of dissection or pseudoaneurysm. Small calcified atherosclerotic plaque without significant stenosis at the carotid bifurcation. Calcified atherosclerotic plaques of the proximal left internal carotid artery without significant stenosis. Vertebral Arteries: Calcified atherosclerotic plaques at the right vertebral artery origin with less than 50 percent stenosis. Calcified atherosclerotic plaques at the left vertebral artery origin with less than 50 percent stenosis. CTA INTRACRANIAL: Scattered calcified atherosclerotic plaques of the bilateral cavernous and supraclinoid carotid arteries, resulting in mild stenosis of the supraclinoid segments. The bilateral petrous carotid arteries are unremarkable. No major anatomical variations at [place]. Anterior, middle and posterior cerebral arteries otherwise appear unremarkable. Calcified atherosclerotic plaques of the intracranial left vertebral artery with less than 50 percent stenosis. Intracranial vertebral arteries are otherwise unremarkable. Basilar artery is unremarkable. 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 No vascular malformation is identified. A pacemaker/defibrillator is noted. There is evidence of multilevel cervical spine laminectomy from C4 to C7, and posterior instrumented fusion at the cervicothoracic junction. IMPRESSION: No proximal intracranial artery occlusion identified. Given the reports of a left MCA occlusion on an outside CTA, there may have been interval recanalization. 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 Follow-up and neurosurgical referral is recommended. I personally viewed and interpreted these images and I have reviewed and approved this report. Normal [facility] IMPRESSION: No proximal intracranial artery occlusion identified. Given the reports of a left MCA occlusion on an outside CTA, there may have been interval recanalization. 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 Follow-up and neurosurgical referral is recommended. I personally viewed and interpreted these images and I have reviewed and approved this report. OLOGY EXAM: CT ANGIO BRAIN/NECK, 07/12/2021 12:03 PM COMPARISON: Same day noncontrast CT head CLINICAL INDICATIONS: 76 years Male Suspected Stroke; RELEVANT CLINICAL HISTORY: Transfer from outside hospital after TPA given TECHNIQUE: A series of transaxial multislice computerized tomographic images are obtained with helical technique from top of aortic arch to vertex following bolus intravenous administration of nonionic contrast. Axial thin section source images, as well as sagittal and coronal thin section reformats, were provided at the scanner. Additional multiplanar and 3D reconstructions were provided. CONTRAST: iohexol (OMNIPAQUE) 350 MG/ML injection 1-171 mL; Route of Administration: Intravenous; Dose: 100 mL. FINDINGS: CTA NECK: Aortic Arch: There is conventional origin of the great vessels from the aortic arch, without origin stenosis. Carotid Arteries: The right common, internal and external carotid arteries are normal in caliber without evidence of dissection or pseudoaneurysm. Calcified atherosclerotic plaque without significant stenosis at the carotid bifurcation. Calcified atherosclerotic plaques of the proximal right internal carotid artery without significant stenosis. The left common, internal and external carotid arteries are normal in caliber without evidence of dissection or pseudoaneurysm. Small calcified atherosclerotic plaque without significant stenosis at the carotid bifurcation. Calcified atherosclerotic plaques of the proximal left internal carotid artery without significant stenosis. Vertebral Arteries: Calcified atherosclerotic plaques at the right vertebral artery origin with less than 50 percent stenosis. Calcified atherosclerotic plaques at the left vertebral artery origin with less than 50 percent stenosis. CTA INTRACRANIAL: Scattered calcified atherosclerotic plaques of the bilateral cavernous and supraclinoid carotid arteries, resulting in mild stenosis of the supraclinoid segments. The bilateral petrous carotid arteries are unremarkable. No major anatomical variations at [place]. Anterior, middle and posterior cerebral arteries otherwise appear unremarkable. Calcified atherosclerotic plaques of the intracranial left vertebral artery with less than 50 percent stenosis. Intracranial vertebral arteries are otherwise unremarkable. Basilar artery is unremarkable. 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 No vascular malformation is identified. A pacemaker/defibrillator is noted. There is evidence of multilevel cervical spine laminectomy from C4 to C7, and posterior instrumented fusion at the cervicothoracic junction. RADIOLOGY Carlos Cruz M D - 07/12/2021 EXAM: CT ANGIO BRAIN/NECK, 07/12/2021 12:03 PM COMPARISON: Same day noncontrast CT head CLINICAL INDICATIONS: 76 years Male Suspected Stroke; RELEVANT CLINICAL HISTORY: Transfer from outside hospital after TPA given TECHNIQUE: A series of transaxial multislice computerized tomographic images are obtained with helical technique from top of aortic arch to vertex following bolus intravenous administration of nonionic contrast. Axial thin section source images, as well as sagittal and coronal thin section reformats, were provided at the scanner. Additional multiplanar and 3D reconstructions were provided. CONTRAST: iohexol (OMNIPAQUE) 350 MG/ML injection 1-171 mL; Route of Administration: Intravenous; Dose: 100 mL. FINDINGS: CTA NECK: Aortic Arch: There is conventional origin of the great vessels from the aortic arch, without origin stenosis. Carotid Arteries: The right common, internal and external carotid arteries are normal in caliber without evidence of dissection or pseudoaneurysm. Calcified atherosclerotic plaque without significant stenosis at the carotid bifurcation. Calcified atherosclerotic plaques of the proximal right internal carotid artery without significant stenosis. The left common, internal and external carotid arteries are normal in caliber without evidence of dissection or pseudoaneurysm. Small calcified atherosclerotic plaque without significant stenosis at the carotid bifurcation. Calcified atherosclerotic plaques of the proximal left internal carotid artery without significant stenosis. Vertebral Arteries: Calcified atherosclerotic plaques at the right vertebral artery origin with less than 50 percent stenosis. Calcified atherosclerotic plaques at the left vertebral artery origin with less than 50 percent stenosis. CTA INTRACRANIAL: Scattered calcified atherosclerotic plaques of the bilateral cavernous and supraclinoid carotid arteries, resulting in mild stenosis of the supraclinoid segments. The bilateral petrous carotid arteries are unremarkable. No major anatomical variations at [place]. Anterior, middle and posterior cerebral arteries otherwise appear unremarkable. Calcified atherosclerotic plaques of the intracranial left vertebral artery with less than 50 percent stenosis. Intracranial vertebral arteries are otherwise unremarkable. Basilar artery is unremarkable. 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 No vascular malformation is identified. A pacemaker/defibrillator is noted. There is evidence of multilevel cervical spine laminectomy from C4 to C7, and posterior instrumented fusion at the cervicothoracic junction. IMPRESSION IMPRESSION: No proximal intracranial artery occlusion identified. Given the reports of a left MCA occlusion on an outside CTA, there may have been interval recanalization. 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 Follow-up and neurosurgical referral is recommended. I personally viewed and interpreted these images and I have reviewed and approved this report. [facility] Radiology Study observation (narrative) [facility] CT Head limitedon 07-12-2021 Radiology Study observation (narrative) [facility] Determination of erythrocyte mean corpuscular volume (MCV)on 07-12-2021 MCV (RBC) [Entitic vol] 90.5 fL 80-94 [facility] Work Phone: FIBRINOGEN, CLOTTABLEon 06-15 Fibrinogen-Clottable 225 mg/dL Normal 220-410 [facility] Comment on above: Result Comment: Func tional Fibrinogen (activity) levels can be affected by direct thrombin inhibitors such as heparins (>2.0 IU/ml) and dabigatran. Abnormal results should be interpreted with caution. Performed By: #### L [id number] #### [facility] (DEFAULT) [address] [place] [phone] Fibrinogen Coag (PPP) [Mass/Vol] 225 mg/dL 220 - 410 mg/dL [facility] Comment on above: Functional Fibrinoge n (activity) levels can be affected by direct thrombin inhibitors such as heparins (>2.0 IU/ml) and dabigatran. Abnormal results should be interpreted with caution. Interpretation and review of laboratory results Normal [facility] GLUCOSE POCon 07-12-2021 Glucose [Mass/Vol] 93 mg/dL 70 - 99 mg/dL [facility] Comment on above: Notified RNread back Poc Sample Type VENO [facility] Test performed at ad dress of the patient encounter. [facility] HEPATIC FUNCTION PANELon Albumin [Mass/Vol] 4.5 g/dL Normal 3.5-5.0 [facility] Comment on above: Performed By: #### [facility] #### [facility] (DEFAULT) [address] [place] [address] ALP [Catalytic activity/Vol] 52 U/L Normal 32-126 [facility] Comment on above: Performed By: #### [facility] #### [facility] (DEFAULT) [address] [place] [address] ALT [Catalytic activity/Vol] 34 U/L Normal 10-52 [facility] Comment on above: Result Comment: Mode rate Hemolysis Performed By: #### H EMOGC #### [facility] (DEFAULT) [address] [place] [address] AST [Catalytic activity/Vol] 50 U/L High 10-39 [facility] Comment on above: Result Comment: Mode rate Hemolysis Performed By: #### H EMOGC #### [facility] (DEFAULT) [address] [place] [address] Bilirubin [Mass/Vol] 0.7 mg/dL Normal <1.5 [facility] Comment on above: Result Comment: Mode rate Hemolysis Performed By: #### H EMOGC #### [facility] (DEFAULT) [address] [place] [address] Bilirubin.indirect [Mass/Vol] 0.1 mg/dL Normal <0.3 [facility] Comment on above: Result Comment: Mode rate Hemolysis Performed By: #### H EMOGC #### [facility] (DEFAULT) [address] [place] [address] Protein [Mass/Vol] 7.7 g/dL Normal 6.4-8.3 [facility] Comment on above: Performed By: #### H EMOGC #### [facility] (DEFAULT) [address] [place] [address] Albumin [Mass/Vol] 4.5 g/dL 3.5 - 5.0 g/dL [facility] ALP [Catalytic activity/Vol] 52 U/L 32 - 126 U/L [facility] ALT [Catalytic activity/Vol] 34 U/L 10 - 52 U/L [facility] Comment on above: Moderate Hemolysis AST [Catalytic activity/Vol] 50 U/L High 10 - 39 U/L [facility] Comment on above: Moderate Hemolysis Bilirubin [Mass/Vol] 0.7 mg/dL <1.5 [facility] Comment on above: Moderate Hemolysis Bilirubin.direct [Mass/Vol] 0.1 mg/dL <0.3 [facility] Comment on above: Moderate Hemolysis Protein [Mass/Vol] 7.7 g/dL 6.4 - 8.3 g/dL [facility] HIGH SENSITIVITY TROPONIN I - SINGLE ORDERon 07-12-2021 hs-Troponin I 8 ng/L Normal <53 [facility] Comment on above: Order Comment: Acute Coronary Syndrome (ACS): Initial Evaluation and Management:[email or web address] Performed By: #### H [facility] #### [facility] (DEFAULT) [address] [place] [address] Interpretation and review of laboratory results Normal [facility] Troponin I.cardiac DL <= 0.01 ng/mL [Mass/Vol] 8 ng/L <53 [facility] Hematocrit Auto (Bld) [Volum e fraction]on 07-12-2021 Hematocrit (Bld) [Volume fraction] 38.2 % 40-54 [facility] Work Phone: INR in Blood by Coagulation assayon 07-12-2021 INR Coag (Bld) [Relative time] 1.1 {INR} [facility] Work Phone: Laboratory - Chemistry and C hemistry - challengeon 07-12-2021 CO2 [Moles/Vol] 24.0 mmol/L 21.0-32.0 [facility] Work Phone: Urea nitrogen/Creatinine [Mass ratio] 15.7 mg/mg 10-20 [facility] Work Phone: Laboratory - Coagulationon 0 07-12-2021 aPTT Coag (Bld) [Time] 28.8 s 24.1-36.2 [facility] Work Phone: PT Coag (PPP) [Time] 14.3 s 11.7-14.9 [facility] Work Phone: Laboratory - Hematology and Cell countson 07-12-2021 Erythrocyte distribution width (RBC) [Entitic vol] 46.7 fL 35.1-43.9 [facility] Work Phone: Erythrocyte distribution width (RBC) [Ratio] 14.2 % 11.6-14.6 [facility] Work Phone: Immature granulocytes/100 WBC (Bld) 0.600 % 0.0-0.9 [facility] Work Phone: Comment on above: IG% - Immature Granu locytes (promyelocytes, myelocytes and metamyelocytes) > 1% indicates that a LEFT SHIFT is Present. MCH (RBC) [Entitic mass] 30.3 pg 27.0-32.0 [facility] Work Phone: Nucleated RBC/100 WBC (Bld) [Ratio] 0 % 0-5 [facility] Work Phone: MCHC Auto (RBC) [Mass/Vol]on 07-12-2021 MCHC (RBC) [Mass/Vol] 33.5 g/dL 32-36 [facility] Work Phone: No Panel Informationon 07-12 [facility] Interpretation and review of laboratory results Abnormal [facility] Estimated Creatinine Clearance Calc 59.61 ml/min [facility] Work Phone: Estimated GFR (MDRD) Amer 75 mL/min >60 [facility] Work Phone: Comment on above: GFR Calc Estimated GFR (MDRD) Non-Af Amer 62 mL/min >60 [facility] Work Phone: Comment on above: Non- GFR Calc Troponin I High Sensitivity 9 pg/mL 3.0-78.0 [facility] Work Phone: Comment on above: Please Note: New Padmini t Units and Gender Specific Reference Ranges. For more information see Policy Stat Procedure Mar Lin High Sensitivity Troponin (TNIH) and attachments. PTINR-STROKEon 07-12-2021 INR Coag (PPP) [Relative time] 1.2 {INR} High 0.9-1.1 [facility] Comment on above: Performed By: #### L [id number], [id number] #### [facility] (DEFAULT) [address] [place] [address] PT Coag (PPP) [Time] 14.7 s High 11.9-14.2 [facility] Comment on above: Performed By: #### L [id number], [id number] #### [facility] (DEFAULT) [address] [place] [address] INR Coag (Bld) [Relative time] 1.2 {INR} High [facility] Interpretation and review of laboratory results Abnormal [facility] PT Coag (PPP) [Time] 14.7 s High [facility] PTTon 07-12-2021 aPTT Coag (Bld) [Time] 27.7 s Normal 24.0-34.3 [facility] Comment on above: Performed By: #### Say [id number], [id number] #### [facility] (DEFAULT) [address] [place] [address] aPTT Coag (PPP) [Time] 27.7 s [facility] Interpretation and review of laboratory results Normal [facility] Platelets bldon 07-12-2021 Platelets (Bld) [#/Vol] 157 10*3/uL 150-450 [facility] Work Phone: Serum or plasma calcium nicole urement (mass/volume)on 07-12-2021 Calcium [Mass/Vol] 8.3 mg/dL 8.5-10.1 [facility] Work Phone: Serum or plasma creatinine m easurement (mass/volume)on 07-12-2021 Creatinine [Mass/Vol] 1.21 mg/dL 0.70-1.30 [facility] Work Phone: Comment on above: The validity of the calculated GFR & GFRAA in patients over 70 years has not been determined. Clinical correlation is essential. Serum or plasma urea nitroge n measurement (mass/volume)on 07-12-2021 Urea nitrogen [Mass/Vol] 19 mg/dL 7-18 [facility] Work Phone: TOXICOLOGY SCREEN URINE - UD RGOrdered By: Karo Christensen on 07-12-2021 Barbiturates Ql (U) Negative Cutoff: 200 ng/mL [facility] Cannabinoids Screen Ql (U) Negative Cutoff: 50 ng/mL [facility] Drugs identified Screen Nom (U) Gabapentin Diphenhydramine Citalopram Abnormal Negative [facility] Interpretation and review of laboratory results Abnormal [facility] For Medical Purposes Only. Nonforensic screen results are considered presumptive and no confirmatory testing will follow. Drugs are detected by immunoassay or Liquid Chromatography Mass Spectrometry (LC-MS/MS). The LC-MS/MS test was developed and its performance characteristics determined by the Toxicology Laboratory at [facility]. It has not been cleared or approved by the FDA. The laboratory is regulated under CLIA as qualified to perform high-complexity testing. This test is used for clinical purposes and should not be regarded as investigational or for research. The following drugs with their lowest level of detection in ng/ml(LOD) are included in this screen: 6 Monoacetylmorphine(300), 7 Aminoflunitrazepam(25), 7 Aminoclonazepam(50),7 hydroxymitragynine (100),Alphahydroxymidazol am (200), Alphahydrozyalprazolam(20 0), Alprazolam(50), Amitriptyline(50), Amphetamine(250), Atenolol(500),Benzoylecgo nine(50), Buprenorphine(100), Bupropion(25),Caffeine(15 000),Chlordiazepoxide(50) , Chlorpheniramine(100), Chlorpromazine(50), Citalopram(100), Clonazepam(200), Cocaine(25),Codeine(200), Cotinine(500),Desipramine (50), Desmethyldoxepin(100), Dextromethorphan(100), Diazepam(100), Dihydrocodeine(100), Diltazem(50), Diphenhydramine(100),Doxe pin(100),EDDP/methadone(1 00), Ephedrine/Pseudoephedrine (100),Fentanyl(25),Flunit razepam(100),Fluoxetine(2 00), Flurazepam(50),Gabapentin (1500), Haloperidol(25), Hydrocodone(100), Hydromorphone(200), Imipramine(50), Ketamine(25), Lidocaine(25),Lorazepam(1 00), Lysergide(LSD)(25),Maprot iline(200), MDA(250), MDMA(250), Meperidine(50),Midazolam (200),Methadone(50), Methamphetamine(500), Methylphenidate(50), Metoprolol(50), Morphine(200),Nalbuphine( 50), Naloxone(200), Norbuprenorphine(300), Nordiazepam(100), Norfentanyl(50),Noroxycod one (100), Norpropoxyphene(50), Nortriptyline(50), Olanzapine(200),Oxazepam( 200),Oxycodone(100),Oxymo rphone(200), Phencyclidine(PCP)(25), Pheniramine(25), Pregabalin(1500), Promethazine(50), Propoxyphene(100), Propanolol(50), Quetiapine(25), Quinidine(500), Ranitidine(500), Risperidone(100), Sertraline(50),Temazepam( 100), Thioridazine(100), Tramadol(50), Trazodone(25), Triazolam(100), Trifluoperazine (100),Venlafaxine(50), Verapamil(100), Zolpidem(200) [facility] TOXICOLOGY SCREEN URINE - UD RGon 07-12-2021 Barbiturates Negative Normal Cutoff: 200 ng/mL [facility] Comment on above: Order Comment: For M edical Purposes Only. Nonforensic screen results are considered presumptive and no confirmatory testing will follow. Drugs are detected by immunoassay or Liquid Chromatography Mass Spectrometry (LC-MS/MS). The LC-MS/MS test was developed and its performance characteristics determined by the Toxicology Laboratory at [facility]. It has not been cleared or approved by the FDA. The laboratory is regulated under CLIA as qualified to perform high-complexity testing. This test is used for clinical purposes and should not be regarded as investigational or for research.The following drugs with their lowest level of detection in ng/ml(LOD) are included in this screen:6 Monoacetylmorphine(300), 7 Aminoflunitrazepam(25), 7 Aminoclonazepam(50),7 hydroxymitragynine (100),Alphahydroxymidazolam (200), Alphahydrozyalprazolam(200), Alprazolam(50), Amitriptyline(50), Amphetamine(250), Atenolol(500),Benzoylecgonine(50), Buprenorphine(100), Bupropion(25),Caffeine(44577),Chlordiazepoxide(50), Chlorpheniramine(100), Chlorpromazine(50), Citalopram(100), Clonazepam(200), Cocaine(25),Codeine(200), Cotinine(500),Desipramine(50), Desmethyldoxepin(100), Dextromethorphan(100), Diazepam(100), Dihydrocodeine(100), Diltazem(50), Diphenhydramine(100),Doxepin(100),EDDP/methadone(100), Ephedrine/Pseudoephedrine(100),Fentanyl(25),Flunitrazepam(100) ,Fluoxetine(200), Flurazepam(50),Gabapentin(1500), Haloperidol(25), Hydrocodone(100), Hydromorphone(200), Imipramine(50), Ketamine(25), Lidocaine(25),Lorazepam(100), Lysergide(LSD)(25),Maprotiline(200), MDA(250), MDMA(250), Meperidine(50),Midazolam (200),Methadone(50), Methamphetamine(500), Methylphenidate(50), Metoprolol(50),Morphine(200),Nalbuphine(50), Naloxone(200), Norbuprenorphine(300), Nordiazepam(100), Norfentanyl(50),Noroxycodone (100), Norpropoxyphene(50), Nortriptyline(50), Olanzapine(200),Oxazepam(200),Oxycodone(100),Oxymorphone(200), Phencyclidine(PCP)(25), Pheniramine(25), Pregabalin(1500), Promethazine(50), Propoxyphene(100), Propanolol(50), Quetiapine(25), Quinidine(500), Ranitidine(500), Risperidone(100), Sertraline(50),Temazepam(100), Thioridazine(100), Tramadol(50), Trazodone(25), Triazolam(100), Trifluoperazine (100),Venlafaxine(50), Verapamil(100), Zolpidem(200) Performed By: #### L [id number], [id number] #### [facility] (DEFAULT) [address] [place] [address] Cannabinoids Screen Ql (U) Negative Normal Cutoff: 50 ng/mL [facility] Comment on above: Order Comment: For M edical Purposes Only. Nonforensic screen results are considered presumptive and no confirmatory testing will follow. Drugs are detected by immunoassay or Liquid Chromatography Mass Spectrometry (LC-MS/MS). The LC-MS/MS test was developed and its performance characteristics determined by the Toxicology Laboratory at [facility]. It has not been cleared or approved by the FDA. The laboratory is regulated under CLIA as qualified to perform high-complexity testing. This test is used for clinical purposes and should not be regarded as investigational or for research.The following drugs with their lowest level of detection in ng/ml(LOD) are included in this screen:6 Monoacetylmorphine(300), 7 Aminoflunitrazepam(25), 7 Aminoclonazepam(50),7 hydroxymitragynine (100),Alphahydroxymidazolam (200), Alphahydrozyalprazolam(200), Alprazolam(50), Amitriptyline(50), Amphetamine(250), Atenolol(500),Benzoylecgonine(50), Buprenorphine(100), Bupropion(25),Caffeine(26354),Chlordiazepoxide(50), Chlorpheniramine(100), Chlorpromazine(50), Citalopram(100), Clonazepam(200), Cocaine(25),Codeine(200), Cotinine(500),Desipramine(50), Desmethyldoxepin(100), Dextromethorphan(100), Diazepam(100), Dihydrocodeine(100), Diltazem(50), Diphenhydramine(100),Doxepin(100),EDDP/methadone(100), Ephedrine/Pseudoephedrine(100),Fentanyl(25),Flunitrazepam(100) ,Fluoxetine(200), Flurazepam(50),Gabapentin(1500), Haloperidol(25), Hydrocodone(100), Hydromorphone(200), Imipramine(50), Ketamine(25), Lidocaine(25),Lorazepam(100), Lysergide(LSD)(25),Maprotiline(200), MDA(250), MDMA(250), Meperidine(50),Midazolam (200),Methadone(50), Methamphetamine(500), Methylphenidate(50), Metoprolol(50),Morphine(200),Nalbuphine(50), Naloxone(200), Norbuprenorphine(300), Nordiazepam(100), Norfentanyl(50),Noroxycodone (100), Norpropoxyphene(50), Nortriptyline(50), Olanzapine(200),Oxazepam(200),Oxycodone(100),Oxymorphone(200), Phencyclidine(PCP)(25), Pheniramine(25), Pregabalin(1500), Promethazine(50), Propoxyphene(100), Propanolol(50), Quetiapine(25), Quinidine(500), Ranitidine(500), Risperidone(100), Sertraline(50),Temazepam(100), Thioridazine(100), Tramadol(50), Trazodone(25), Triazolam(100), Trifluoperazine (100),Venlafaxine(50), Verapamil(100), Zolpidem(200) Performed By: #### L [id number], [id number] #### [facility] (DEFAULT) [address] [place] [address] Drugs Detected Urine Tox Abnormal Negative [facility] Comment on above: Order Comment: For M edical Purposes Only. Nonforensic screen results are considered presumptive and no confirmatory testing will follow. Drugs are detected by immunoassay or Liquid Chromatography Mass Spectrometry (LC-MS/MS). The LC-MS/MS test was developed and its performance characteristics determined by the Toxicology Laboratory at [facility]. It has not been cleared or approved by the FDA. The laboratory is regulated under CLIA as qualified to perform high-complexity testing. This test is used for clinical purposes and should not be regarded as investigational or for research.The following drugs with their lowest level of detection in ng/ml(LOD) are included in this screen:6 Monoacetylmorphine(300), 7 Aminoflunitrazepam(25), 7 Aminoclonazepam(50),7 hydroxymitragynine (100),Alphahydroxymidazolam (200), Alphahydrozyalprazolam(200), Alprazolam(50), Amitriptyline(50), Amphetamine(250), Atenolol(500),Benzoylecgonine(50), Buprenorphine(100), Bupropion(25),Caffeine(66420),Chlordiazepoxide(50), Chlorpheniramine(100), Chlorpromazine(50), Citalopram(100), Clonazepam(200), Cocaine(25),Codeine(200), Cotinine(500),Desipramine(50), Desmethyldoxepin(100), Dextromethorphan(100), Diazepam(100), Dihydrocodeine(100), Diltazem(50), Diphenhydramine(100),Doxepin(100),EDDP/methadone(100), Ephedrine/Pseudoephedrine(100),Fentanyl(25),Flunitrazepam(100) ,Fluoxetine(200), Flurazepam(50),Gabapentin(1500), Haloperidol(25), Hydrocodone(100), Hydromorphone(200), Imipramine(50), Ketamine(25), Lidocaine(25),Lorazepam(100), Lysergide(LSD)(25),Maprotiline(200), MDA(250), MDMA(250), Meperidine(50),Midazolam (200),Methadone(50), Methamphetamine(500), Methylphenidate(50), Metoprolol(50),Morphine(200),Nalbuphine(50), Naloxone(200), Norbuprenorphine(300), Nordiazepam(100), Norfentanyl(50),Noroxycodone (100), Norpropoxyphene(50), Nortriptyline(50), Olanzapine(200),Oxazepam(200),Oxycodone(100),Oxymorphone(200), Phencyclidine(PCP)(25), Pheniramine(25), Pregabalin(1500), Promethazine(50), Propoxyphene(100), Propanolol(50), Quetiapine(25), Quinidine(500), Ranitidine(500), Risperidone(100), Sertraline(50),Temazepam(100), Thioridazine(100), Tramadol(50), Trazodone(25), Triazolam(100), Trifluoperazine (100),Venlafaxine(50), Verapamil(100), Zolpidem(200) Result Comment: Ron pentin Diphenhydramine Citalopram Performed By: #### L [id number], [id number] #### [facility] ([facility]) [address] [place] [address] Thin prep Papanicolaou smear with manual screeningon 07-12-2021 Thin prep Papanicolaou smear with manual screening 5 5-15 [facility] Work Phone: URINE CULTUREon 07-12-2021 Bacteria identified Cx Nom (U) Normal [facility] Comment on above: Order Comment: For i ndwelling catheters, specimen collection is acceptable on catheter day 1 and 2 only. Hope top vacutainer. Urine must be to the fill line to process (4mls). If minimum volume, send urine in a yellow top vacutainer tube. Result Comment: Grow th 38STREPTOCOCCUS AGALACTIAESTREPTOCOCCUS AGALACTIAE >100,000 CFU/mL Streptococcus agalactiae Susceptibilities not routinely performed. Performed By: #### U R #### [facility] (DEFAULT) [address] [address] URINE DIPSTICK; REFLEX MICRO SCOPY; REFLEX CULTURE PERFORMABLEon 07-12-2021 Appearance (U) Cloudy Abnormal Clear [facility] Color (U) Yellow Yellow [facility] Glucose Test strip (U) [Mass/Vol] Negative Negative [facility] Interpretation and review of laboratory results Abnormal [facility] Ketones (U) [Mass/Vol] Negative Negative [facility] Leukocyte esterase Test strip Ql (U) Moderate Abnormal Negative [facility] Nitrite Ql (U) Negative Negative [facility] pH (U) 6.0 [pH] 5.0 - 7.0 [facility] Protein (U) [Mass/Vol] 30 mg/dL Abnormal Negative [facility] RBC (U) [#/Vol] Large Abnormal Negative U [facility] Specific gravity (U) [Rel density] 1.015 [facility] Urobilinogen (U) [Mass/Vol] 1.0 E.U./dL 0.2 E.U/dL, 1.0 E.U/dL [facility] Appearance (U) Cloudy Abnormal Clear [facility] Comment on above: Performed By: #### L [id number], [id number] #### [facility] (DEFAULT) [address] [place] [address] Blood Urine Large Abnormal Negative [facility] Comment on above: Performed By: #### L [id number], [id number] #### [facility] (DEFAULT) [address] [place] [address] Color (U) Yellow Normal Yellow [facility] Comment on above: Performed By: #### L [id number], [id number] #### [facility] (DEFAULT) [address] [place] [address] Glucose Ql (U) Negative Normal Negative [facility] Comment on above: Performed By: #### L [id number], [id number] #### [facility] (DEFAULT) [address] [place] [address] Ketones Ql (U) Negative Normal Negative [facility] Comment on above: Performed By: #### L [id number], [id number] #### [facility] (DEFAULT) [address] [place] [address] Leukocyte esterase Test strip Ql (U) Moderate Abnormal Negative [facility] Comment on above: Performed By: #### L [id number], [id number] #### [facility] (DEFAULT) [address] [place] [address] Nitrites Urine Negative Normal Negative [facility] Comment on above: Performed By: #### L [id number], [id number] #### [facility] (DEFAULT) [address] [place] [address] pH (U) 6.0 [pH] Normal 5.0-7.0 [facility] Comment on above: Performed By: #### L [id number], [id number] #### [facility] (DEFAULT) [address] [place] [address] Protein Urine 30 mg/dL Abnormal Negative [facility] Comment on above: Performed By: #### L [id number], [id number] #### [facility] (DEFAULT) [address] [address] Specific [place] Urine 1.015 Normal 1.001 -1.03 5 [facility] Comment on above: Performed By: #### L [id number], [id number] #### [facility] (DEFAULT) [address] [address] Urobilinogen Urine 1.0 E.U./dL Normal 0.2 E.U/dL, 1.0 E.U/dL [facility] Comment on above: Performed By: #### Say [id number], [id number] #### [facility] (DEFAULT) [address] [place] [address] URINE MICROSCOPIC WITH REFLE X TO CULTUREOrdered By: Kalyn Metcalf on 07-12-2021 Bacteria LM Ql (Urine sed) TRACE Abnormal ABSENT [facility] Epithelial cells.squamous LM Ql (Urine sed) 1/hpf = 1+ 1/hpf = 1+, 2-5/hpf = 2+, 0/hpf = 0+, ABSENT [facility] Interpretation and review of laboratory results Abnormal [facility] RBC LM.HPF (Urine sed) [#/Area] /[HPF] Abnormal 0 - 2 /HPF [facility] WBC LM.HPF (Urine sed) [#/Area] /[HPF] Abnormal 0 - 5 /HPF [facility] URINE MICROSCOPIC WITH REFLE X TO CULTUREon 07-12-2021 Bacteria TRACE Abnormal ABSENT [facility] Comment on above: Performed By: #### L [id number], [id number] #### [facility] (DEFAULT) [address] [address] RBC LM.HPF (Urine sed) [#/Area] /[HPF] Abnormal 0-2 [facility] Comment on above: Performed By: #### L [id number], [id number] #### [facility] (DEFAULT) [address] [place] [address] Squamous/Epithelial Cells 1/hpf = 1+ Normal 1/hpf = 1+, 2-5/hpf = 2+, 0/hpf = 0+, ABSENT [facility] Comment on above: Performed By: #### L [id number], [id number] #### [facility] (DEFAULT) [address] [place] [address] WBC LM.HPF (Urine sed) [#/Area] /[HPF] Abnormal 0-5 [facility] Comment on above: Performed By: #### Say SEGOVIA [id number] #### [facility] (DEFAULT) [address] [place] [id number] VENOUS BLOOD GAS PLUS LACTAT Ernesto 07-12-2021 Base Excess -1.6 mmol/L Normal -3.0-3.0 [facility] Comment on above: Performed By: #### Say SEGOVIA, [id number] #### [facility] (DEFAULT) [address] [place] [address] 19819 HCO3 (Bld) [Moles/Vol] 24 mmol/L Normal 22-29 [facility] Comment on above: Performed By: #### Say [id number], [id number] #### [facility] (DEFAULT) [address] [place] [address] [id number] Lactate, Whole Blood 1.5 mmol/L Normal 0.5-1.6 [facility] Comment on above: Performed By: #### L [id number], [id number] #### [facility] (DEFAULT) [address] [place] [address] [id number] PCO2 46 mm Hg Normal 36-52 [facility] Comment on above: Performed By: #### L [id number], [id number] #### U [facility] (DEFAULT) [address] [place] [address] 50587 pH (Bld) 7.33 [pH] Normal 7.32-7.43 [facility] Comment on above: Performed By: #### L [id number], [id number] #### U [facility] (DEFAULT) [address] [place] [address] 14368 PO2 54 mm Hg Normal [facility] Comment on above: Result Comment: Veno us pO2 is not recommended for the evaluation of oxygen status, clinical correlation is recommended. Performed By: #### L [id number], [id number] #### U [facility] (DEFAULT) [address] [place] [address] 99806 sO2 87 % High 70-80 [facility] Comment on above: Performed By: #### L [id number], [id number] #### [facility] (DEFAULT) [address] [place] [address] 49531 Base excess Calc (Bld) [Moles/Vol] -1.6000 mmol/L -3.0 - 3.0 mmol/L [facility] CO2 (Bld) [Partial pressure] 46 mm[Hg] [facility] HCO3 (Bld) [Moles/Vol] 24 mmol/L 22 - 29 mmol/L [facility] Interpretation and review of laboratory results Abnormal [facility] Lactate [Moles/Vol] 1.5 mmol/L 0.5 - 1. 6 mmol/L [facility] Oxygen (Bld) [Partial pressure] 54 mm[Hg] mm Hg [facility] Comment on above: Venous pO2 is not re commended for the evaluation of oxygen status, clinical correlation is recommended. Oxygen saturation in Blood 87 % High 70 - 80 % [facility] pH (Bld) 7.33 [pH] [facility] XR ABDOMEN 1 VIEWon 07-13-19 XR ABDOMEN 1 VIEW EXAM: XR ABDOMEN 1 V IEW, 07/12/2021 16:21 PM COMPARISON: No prior abdominal radiographs available for comparison. CLINICAL INDICATIONS: abd distension FINDINGS: Tubes: No enteric tube. Mejía catheter in the pelvis. No definite pneumoperitoneum or pneumatosis of the bowel wall. There is a non obstructive bowel gas pattern. Mild formed stool in the colon. No organomegaly or mass effect. No significant calcific densities or definite stones. Visualized osseous structures are unremarkable for the patient's age. IMPRESSION: No acute radiographic findings. Normal [facility] XR Abdomen Single viewon IMPRESSION: No acute radiographic findings. OLOGY EXAM: XR ABDOMEN 1 V IEW, 07/12/2021 16:21 PM COMPARISON: No prior abdominal radiographs available for comparison. CLINICAL INDICATIONS: abd distension FINDINGS: Tubes: No enteric tube. Mejía catheter in the pelvis. No definite pneumoperitoneum or pneumatosis of the bowel wall. There is a non obstructive bowel gas pattern. Mild formed stool in the colon. No organomegaly or mass effect. No significant calcific densities or definite stones. Visualized osseous structures are unremarkable for the patient's age. RADIOLOGY Carlos Adhikari M D - 07/12/2021 EXAM: XR ABDOMEN 1 VIEW, 07/12/2021 16:21 PM COMPARISON: No prior abdominal radiographs available for comparison. CLINICAL INDICATIONS: abd distension FINDINGS: Tubes: No enteric tube. Mejía catheter in the pelvis. No definite pneumoperitoneum or pneumatosis of the bowel wall. There is a non obstructive bowel gas pattern. Mild formed stool in the colon. No organomegaly or mass effect. No significant calcific densities or definite stones. Visualized osseous structures are unremarkable for the patient's age. IMPRESSION IMPRESSION: No acute radiographic findings. [facility] Radiology Study observation (narrative) [facility] XR Abdomen Single viewOrdere d By: Carlos Adhikari on 07-12-2021 [facility] Work Phone: No Panel Informationon 03-24 Culture Urine 10,000 - 50,000 cfu/ ml Multiple bacterial morphotypes present. Probable Contamination. Suggest recollection if clinically indicated. [facility] Work Phone: Office Visiton 11-12-2016 Dietary management education, guidance, and counseling (procedure) yes Invalid Interpretation Code [facility] Work Phone: [phone] Documentation of current medications (procedure) Done Invalid Interpretation Code [facility] Work Phone: [phone] Fall risk assessment Yes Invalid Interpretation Code [facility] Work Phone: [phone] Protein mass conc Done [facility] Work Phone: [phone] Tobacco smoking status NHIS Never smoker [facility] Work Phone: [phone] Tobacco use [facility] Never smoker Invalid Interpretation Code [facility] Work Phone: [phone] 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 Left ventricular Ejection fraction 70 % Invalid Interpretation Code [facility] Work Phone: [phone] Office Visiton 04-30-2016 Protein mass conc Done [facility] Work Phone: [phone] Microbiology: Culture, Urine on 04-11-2016 CUUR Tobramycin $ <=1 S [facility] Work Phone: [phone] GE use only - for [employer] import when terms are not otherwise specified Tobramycin $ <=1 S Invalid Interpretation Code [facility] Work Phone: [phone] Office Visiton 05-15-2015 Tobacco smoking status NHIS Never smoker [facility] Work Phone: [phone] 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 Alkaline phosphatase (ALP) 67 U/L Invalid Interpretation Code [facility] Work Phone: [phone] ALP enzyme act/vol (Bld) 67 U/L [facility] Work Phone: [phone] ALT enzyme act/vol 24 U/L Invalid Interpretation Code [facility] Work Phone: [phone] AST enzyme act/vol 16 U/L Invalid Interpretation Code [facility] Work Phone: [phone] Bilirubin mass conc 0.2 mg/dL Invalid Interpretation Code [facility] Work Phone: [phone] Chloride molar conc 107 mmol/L Invalid Interpretation Code [facility] Work Phone: [phone] CO2 26 mmol/L Invalid Interpretation Code [facility] [employer] Work Phone: [phone] CO2 ppres (BldV) 26 mmol/L [facility] Work Phone: [phone] Creatinine mass conc 0.63 mg/dL Invalid Interpretation Code [facility] [employer] Work Phone: [phone] Glucose 80 mg/dL Invalid Interpretation Code [facility] Work Phone: [phone] Glucose mass conc 80 mg/dL [facility] Work Phone: [phone] Hematocrit (HCT) 34.0 % Invalid Interpretation Code [facility] Work Phone: [phone] Hematocrit Volume Fraction (Bld) 34.0 % [facility] Work Phone: [phone] Hemoglobin mass conc (Bld) 11.1 g/dL Invalid Interpretation Code [facility] Work Phone: [phone] MCV 88.2 fL Invalid Interpretation Code [facility] Work Phone: [phone] MCV Entitic volume (RBC) 88.2 fL [facility] Work Phone: [phone] Platelets 142 10*3/mm3 Invalid Interpretation Code [facility] Work Phone: [phone] Platelets #/vol (Bld) 142 10*3/mm3 [facility] Work Phone: [phone] Potassium molar conc 3.7 mmol/L Invalid Interpretation Code [facility] Work Phone: [phone] Sodium molar conc 138 mmol/L Invalid Interpretation Code [facility] [employer] Work Phone: [phone] Urea nitrogen mass conc 18 mg/dL Invalid Interpretation Code [facility] [employer] Work Phone: [phone] WBC #/vol (Bld) 5.7 10*3/uL [facility] Work Phone: [phone] WBC (Leukocytes) 5.7 10*3/uL Invalid Interpretation Code [facility] Work Phone: [phone] 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 02-19-2015 Magnesium mass conc 2.1 mg/dL Invalid Interpretation Code [facility] Work Phone: [phone] 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 02-17-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 Albumin mass conc 3.2 g/dL Invalid Interpretation Code [facility] Work Phone: [phone] Replaced Document: Sabino SAUCEDA Observationson 08-15-2014 EKG QRS axis 43 deg [facility] Work Phone: [phone] electrocardiogram interpretation Marked sinus Bradycardia BORDERLINE RHYTHM Invalid Interpretation Code [facility] Work Phone: [phone] Interpretation Marked sinus Bradyca rdia BORDERLINE RHYTHM [facility] Work Phone: [phone] P [place] 42 deg [facility] Work Phone: [phone] P wave axis, electrocardiogram 42 deg Invalid Interpretation Code [facility] Work Phone: [phone] AL Interval 180 ms [facility] Work Phone: [phone] AL interval, electrocardiogram 180 ms Invalid Interpretation Code [facility] Work Phone: [phone] Pulse (Heart Rate) 46 /min Invalid Interpretation Code [facility] Work Phone: [phone] QRS axis, electrocardiogram 43 deg Invalid Interpretation Code [facility] Work Phone: [phone] QRS Duration 104 ms [facility] Work Phone: [phone] QRS duration, electrocardiogram 104 ms Invalid Interpretation Code [facility] Work Phone: [phone] QT Interval new path ms [facility] Work Phone: [phone] QT interval, electrocardiogram new path ms Invalid Interpretation Code [facility] Work Phone: [phone] T [place] 55 deg [facility] Work Phone: [phone] T wave axis, electrocardiogram 55 deg Invalid Interpretation Code [facility] Work Phone: [phone] Lab Report: Basic Metabolic Profile (BMP)on 07-16-2014 Anion gap 8 mmol/L Invalid Interpretation Code -15 [facility] Work Phone: [phone] Anion gap molar conc 8 mmol/L 5-[address] [facility] Work Phone: [phone] Calcium mass conc 8.8 mg/dL Invalid Interpretation Code 8.5-10.1 [facility] Work Phone: [phone] eGFR (non-black) 96 mL/min/{1.73_m2} Invalid Interpretation Code >60 [facility] Work Phone: [phone] EST GFR - AA 96 mL/min >60 [facility] [employer] Work Phone: [phone] GFR/1.73 sq M predicted among non-blacks MDRD vol rate/area (S/P/Bld) 79 mL/min/{1.73_m2} Invalid Interpretation Code >60 [facility] Work Phone: [phone] Urea nitrogen/Creatinine mass ratio 17.0 RATIO Invalid Interpretation Code 10-20 [facility] [employer] Work Phone: [phone] Office Visiton 07-12-2014 cardiac risk group B Invalid Interpretation Code [facility] [employer] Work Phone: [phone] General cardiovascular disease 10Y risk [#] [place].Jessica'González Not enough information Invalid Interpretation Code [facility] [employer] Work Phone: [phone] 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 Erythrocytes (RBC) 3.67 10*6/uL Invalid Interpretation Code [facility] Work Phone: [phone] MCH 30.5 pg Invalid Interpretation Code [facility] Work Phone: [phone] Entitic mass (RBC) 30.5 pg [facility] Work Phone: [phone] MCHC 34.8 g/dL Invalid Interpretation Code [facility] Work Phone: [phone] MCHC mass conc (RBC) 34.8 g/dL [facility] Work Phone: [phone] RBC #/vol (Bld) 3.67 10*6/uL [facility] [employer] Work Phone: [phone] Clinical Lists Update: 06-08-2014 Thyrotropin Qn 4.52 u[iU]/mL High [facility] [employer] Work Phone: [phone] Culture, urine Bacteria identified Cx Nom (U) Escherichia coli [facility] Work Phone: Bacteria identified Cx Nom (U) Pseudomonas aeroginosa [facility] Work Phone: Laboratory - Microbiology an d Antimicrobial susceptibility Bacteria identified Cx Nom (Bld) Escherichia coli [facility] Work Phone: Lower GI hemoglobin IA Ql (S tl) Stool Occult Blood (DEV) Positive [facility] Work Phone: Vital Signs Date Time Vital Sign Value Performing Clinician Facility 08-08-2024 14:31-0400 Body height 177.[address] Mallory Mcpherson DO Work Phone: [facility] 08-08-2024 06:51-0400 Body mass index (BMI) [Ratio] 35.9 kg/m2 Dr. Mallory Mcpherson DO Work Phone: [facility] 08-08-2024 06:51-0400 Body weight 113.[address] Mallory Mcpherson DO Work Phone: [facility] 08-08-2024 06:51-0400 Diastolic blood pressure 62 mm[Hg] Dr. Mallory Mcpherson DO Work Phone: [facility] 08-08-2024 06:51-0400 Heart rate 58 /min Dr. Mallory Mcpherson DO Work Phone: [facility] 08-08-2024 06:51-0400 Respiratory rate 18 /min Dr. Mallory Mcpherson DO Work Phone: [facility] 08-08-2024 06:51-0400 SaO2% (BldA) [Mass fraction] 96 % Dr. Mallory Mcpherson DO Work Phone: [facility] 08-08-2024 06:51-0400 Systolic blood pressure 120 mm[Hg] Dr. Mallory Mcpherson DO Work Phone: [facility] 05-01-2024 15:00-0500 Body temperature 98.7 [degF] Dr. Mallory Mcpherson DO Work Phone: [facility] 05-01-2024 15:00-0500 Diastolic blood pressure 66 mm[Hg] Dr. Mallory Mcpherson DO Work Phone: [facility] 05-01-2024 15:00-0500 Heart rate 78 /min DrAntonio Mcpherson DO Work Phone: [facility] 05-01-2024 15:00-0500 Respiratory rate 16 /min Dr. Mallory Mcpherson DO Work Phone: [facility] 05-01-2024 15:00-0500 SaO2% (BldA) [Mass fraction] 97 % Dr. Mallory Mcpherson DO Work Phone: [facility] 05-01-2024 15:00-0500 Systolic blood pressure 127 mm[Hg] Dr. Mallory Mcpherson DO Work Phone: [facility] 04-26-2024 12:14-0500 Body weight 107.[address] Mallory Mcpherson DO Work Phone: [facility] 04-25-2024 14:00-0500 Body mass index (BMI) [Ratio] 33.8 kg/m2 Dr. Mallory Mcpherson DO Work Phone: [facility] 05-04-2023 11:32-0500 Body height 182.[address] Mallory Mcpherson Work Phone: [facility] 05-04-2023 11:32-0500 Body mass index (BMI) [Ratio] 35.9 kg/m2 Dr. Mallory Mcpherson Work Phone: [facility] 05-04-2023 11:32-0500 Body weight 120.[address] Mallory Mcpherson Work Phone: [facility] 05-04-2023 11:32-0500 Diastolic blood pressure 75 mm[Hg] Dr. Mallory Mcpherson Work Phone: [facility] 05-04-2023 11:32-0500 Heart rate 61 /min Dr. Mallory Mcpherson Work Phone: [facility] 05-04-2023 11:32-0500 Respiratory rate 18 /min Dr. Mallory Mcpherson Work Phone: [facility] 05-04-2023 11:32-0500 SaO2% (BldA) [Mass fraction] 98 % Dr. Mallory Mcpherson Work Phone: [facility] 05-04-2023 11:32-0500 Systolic blood pressure 124 mm[Hg] Dr. Mallory Mcpherson Work Phone: [facility] 11-04-2022 15:01-0400 Body height 182.[address] Mallory Mcpherson Work Phone: [facility] 11-04-2022 15:01-0400 Body mass index (BMI) [Ratio] 34.2 kg/m2 Dr. Mallory Mcpherson Work Phone: [facility] 11-04-2022 15:01-0400 Body weight 114.[address] Mallory Mcpherson Work Phone: [facility] 11-04-2022 15:01-0400 Diastolic blood pressure 82 mm[Hg] Dr. Mallory Mcpherson Work Phone: [facility] 11-04-2022 15:01-0400 Heart rate 68 /min Dr. Mallory Mcpherson Work Phone: [facility] 11-04-2022 15:01-0400 Respiratory rate 18 /min Dr. Mallory Mcpherson Work Phone: [facility] 11-04-2022 15:01-0400 SaO2% (BldA) [Mass fraction] 96 % Dr. Mallory Mcpherson Work Phone: [facility] 11-04-2022 15:01-0400 Systolic blood pressure 155 mm[Hg] Dr. Mallory Mcpherson Work Phone: [facility] 10-15-2022 17:50-0400 Diastolic blood pressure 66 mm[Hg] Dr. Mallory Mcpherson Work Phone: [facility] 10-15-2022 17:50-0400 Heart rate 78 /min Dr. Mallory Mcpherson Work Phone: [facility] 10-15-2022 17:50-0400 Respiratory rate 16 /min Dr. Mallory Mcpherson Work Phone: [facility] 10-15-2022 17:50-0400 Systolic blood pressure 128 mm[Hg] Dr. Mallory Mcpherson Work Phone: [facility] 10-15-2022 16:47-0400 SaO2% (BldA) [Mass fraction] 96 % Dr. Mallory Mcpherson Work Phone: [facility] 10-15-2022 15:18-0400 Body height 182.[address] Mallory Mcpherson Work Phone: [facility] 10-15-2022 15:18-0400 Body mass index (BMI) [Ratio] 35.9 kg/m2 Dr. Mallory Mcpherson Work Phone: [facility] 10-15-2022 15:18-0400 Body temperature 98 [degF] Dr. Mallory Mcpherson Work Phone: [facility] 10-15-2022 15:18-0400 Body weight 120.[address] Mallory Mcpherson Work Phone: [facility] 08-28-2022 11:15-0400 Body temperature 98.6 [degF] Dr. Mallory Mcpherson Work Phone: [facility] 08-28-2022 11:15-0400 Diastolic blood pressure 76 mm[Hg] Dr. Mallory Mcpherson Work Phone: [facility] 08-28-2022 11:15-0400 Heart rate 56 /min Dr. Mallory Mcpherson Work Phone: [facility] 08-28-2022 11:15-0400 Respiratory rate 16 /min Dr. Mallory Mcpherson Work Phone: [facility] 08-28-2022 11:15-0400 SaO2% (BldA) [Mass fraction] 96 % Dr. Mallory Mcpherson Work Phone: [facility] 08-28-2022 11:15-0400 Systolic blood pressure 122 mm[Hg] Dr. Mallory Mcpherson Work Phone: [facility] 08-26-2022 14:33-0400 Body height 175.[address] Mallory Mcpherson Work Phone: [facility] 08-26-2022 14:33-0400 Body weight 117.[address] Mallory Mcpherson Work Phone: [facility] 08-25-2022 14:24-0400 Body mass index (BMI) [Ratio] 38.1 kg/m2 Dr. Mallory Mcpherson Work Phone: [facility] 04-26-2022 14:31-0500 Body mass index (BMI) [Ratio] 35.7 kg/m2 Dr. Mallory Mcpherson Work Phone: [facility] 04-26-2022 14:31-0500 Body weight 112.[address] Mallory Mcpherson Work Phone: [facility] 04-26-2022 14:31-0500 Diastolic blood pressure 84 mm[Hg] Dr. Mallory Mcpherson Work Phone: [facility] 04-26-2022 14:31-0500 Heart rate 62 /min Dr. Mallory Mcpherson Work Phone: [facility] 04-26-2022 14:31-0500 Respiratory rate 18 /min Dr. Mallory Mcpherson Work Phone: [facility] 04-26-2022 14:31-0500 SaO2% (BldA) [Mass fraction] 98 % Dr. Mallory Mcpherson Work Phone: [facility] 04-26-2022 14:31-0500 Systolic blood pressure 143 mm[Hg] Dr. Mallory Mcpherson Work Phone: [facility] 12-04-2021 11:10-0400 Body height 172.[address] Mallory Mcpherson Work Phone: [facility] 12-04-2021 11:10-0400 Body mass index (BMI) [Ratio] 37.5 kg/m2 Dr. Mallory Mcpherson Work Phone: [facility] 12-04-2021 11:10-0400 Body weight 112.[address] Mallory Mcpherson Work Phone: [facility] 12-04-2021 11:10-0400 Diastolic blood pressure 66 mm[Hg] Dr. Mallory Mcpherson Work Phone: [facility] 12-04-2021 11:10-0400 Heart rate 59 /min Dr. Mallory Mcpherson Work Phone: [facility] 12-04-2021 11:10-0400 Respiratory rate 18 /min Dr. Mallory Mcpherson Work Phone: [facility] 12-04-2021 11:10-0400 Systolic blood pressure 118 mm[Hg] Dr. Mallory Mcpherson Work Phone: [facility] 09-19-2021 13:00-0400 Body temperature 98.1 [degF] Dr. Mallory Mcpherson Work Phone: [facility] Work Phone: 09-19-2021 13:00-0400 Diastolic blood pressure 61 mm[Hg] Dr. Mallory Mcpherson Work Phone: [facility] Work Phone: 09-19-2021 13:00-0400 Heart rate 68 /min Dr. Mallory Mcpherson Work Phone: [facility] Work Phone: 09-19-2021 13:00-0400 Respiratory rate 16 /min Dr. Mallory Mcpherson Work Phone: [facility] Work Phone: 09-19-2021 13:00-0400 SaO2% (BldA) [Mass fraction] 95 % Dr. Mallory Mcpherson Work Phone: [facility] Work Phone: 09-19-2021 13:00-0400 Systolic blood pressure 108 mm[Hg] Dr. Mallory Mcpherson Work Phone: [facility] Work Phone: 09-17-2021 10:28-0400 Body weight 105.[address] Mallory Mcpherson Work Phone: [facility] Work Phone: 09-16-2021 14:46-0400 Diastolic blood pressure 93 mm[Hg] Dr. Mallory Mcpherson Work Phone: [facility] Work Phone: 09-16-2021 14:46-0400 Heart rate 70 /min Dr. Mallory Mcpherson Work Phone: [facility] Work Phone: 09-16-2021 14:46-0400 Respiratory rate 18 /min Dr. Mallory Mcpherson Work Phone: [facility] Work Phone: 09-16-2021 14:46-0400 SaO2% (BldA) [Mass fraction] 98 % Dr. Mallory Mcpherson Work Phone: [facility] Work Phone: 09-16-2021 14:46-0400 Systolic blood pressure 124 mm[Hg] Dr. Mallory Mcpherson Work Phone: [facility] Work Phone: 09-11-2021 16:00-0400 Body temperature 98.7 [degF] Dr. Mallory Mcpherson Work Phone: [facility] Work Phone: 09-11-2021 16:00-0400 Diastolic blood pressure 67 mm[Hg] Dr. Mallory Mcpherson Work Phone: [facility] Work Phone: 09-11-2021 16:00-0400 Heart rate 66 /min Dr. Mallory Mcpherson Work Phone: [facility] Work Phone: 09-11-2021 16:00-0400 Respiratory rate 16 /min Dr. Mallory Mcpherson Work Phone: [facility] Work Phone: 09-11-2021 16:00-0400 SaO2% (BldA) [Mass fraction] 95 % Dr. Mallory Mcpherson Work Phone: [facility] Work Phone: 09-11-2021 16:00-0400 Systolic blood pressure 107 mm[Hg] Dr. Mallory Mcpherson Work Phone: [facility] Work Phone: 09-10-2021 13:51-0400 Body height [address] Mallory Mcpherson Work Phone: [facility] Work Phone: 09-10-2021 13:51-0400 Body weight 105.[address] Mallory Mcpherson Work Phone: [facility] Work Phone: 09-10-2021 08:19-0400 Heart rate 74 /min Dr. Mallory Mcpherson Work Phone: [facility] Work Phone: 09-10-2021 08:19-0400 Respiratory rate 16 /min Dr. Mallory Mcpherson Work Phone: [facility] Work Phone: 09-10-2021 06:39-0400 Body temperature 99.4 [degF] Dr. Mallory Mcpherson Work Phone: [facility] Work Phone: 09-10-2021 06:39-0400 Diastolic blood pressure 73 mm[Hg] Dr. Mallory Mcpherson Work Phone: [facility] Work Phone: 09-10-2021 06:39-0400 SaO2% (BldA) [Mass fraction] 94 % Dr. Mallory Mcpherson Work Phone: [facility] Work Phone: 09-10-2021 06:39-0400 Systolic blood pressure 145 mm[Hg] Dr. Mallory Mcpherson Work Phone: [facility] Work Phone: 09-09-2021 13:00-0400 Body weight 105.[address] Mallory Mcpherson Work Phone: [facility] Work Phone: 09-08-2021 14:55-0400 Diastolic blood pressure 71 mm[Hg] Dr. Mallory Mcpherson Work Phone: [facility] Work Phone: 09-08-2021 14:55-0400 Heart rate 89 /min Dr. Mallory Mcpherson Work Phone: [facility] Work Phone: 09-08-2021 14:55-0400 Respiratory rate 18 /min Dr. Mallory Mcpherson Work Phone: [facility] Work Phone: 09-08-2021 14:55-0400 SaO2% (BldA) [Mass fraction] 94 % Dr. Mallory Mcpherson Work Phone: [facility] Work Phone: 09-08-2021 14:55-0400 Systolic blood pressure 115 mm[Hg] Dr. Mallory Mcpherson Work Phone: [facility] Work Phone: 09-07-2021 12:37-0400 Diastolic blood pressure 67 mm[Hg] Dr. Mallory Mcpherson Work Phone: [facility] Work Phone: 09-07-2021 12:37-0400 Systolic blood pressure 120 mm[Hg] Dr. Mallory Mcpherson Work Phone: [facility] Work Phone: 09-07-2021 11:56-0400 Heart rate 64 /min Dr. Mallory Mcpherson Work Phone: [facility] Work Phone: 09-07-2021 11:56-0400 Respiratory rate 18 /min Dr. Mallory Mcpherson Work Phone: [facility] Work Phone: 09-07-2021 11:56-0400 SaO2% (BldA) [Mass fraction] 94 % Dr. Mallory Mcpherson Work Phone: [facility] Work Phone: 09-07-2021 09:57-0400 Body height [address] Mallory Mcpherson Work Phone: [facility] Work Phone: 09-07-2021 09:57-0400 Body mass index (BMI) [Ratio] 34 kg/m2 Dr. Mallory Mcpherson Work Phone: [facility] Work Phone: 09-07-2021 09:57-0400 Body temperature 98.4 [degF] Dr. Mallory Mcpherson Work Phone: [facility] Work Phone: 09-07-2021 09:57-0400 Body weight 101.[address] Mallory Mcpherson Work Phone: [facility] Work Phone: 09-07-2021 06:24-0400 Body temperature 98.8 [degF] Dr. Mallory Mcpherson Work Phone: [facility] Work Phone: 09-07-2021 06:24-0400 Diastolic blood pressure 70 mm[Hg] Dr. Mallory Mcpherson Work Phone: [facility] Work Phone: 09-07-2021 06:24-0400 Heart rate 66 /min Dr. Mallory Mcpherson Work Phone: [facility] Work Phone: 09-07-2021 06:24-0400 Systolic blood pressure 139 mm[Hg] Dr. Mallory Mcpherson Work Phone: [facility] Work Phone: 09-06-2021 14:17-0400 Respiratory rate 20 /min Dr. Mallory Mcpherson Work Phone: [facility] Work Phone: 09-06-2021 14:17-0400 SaO2% (BldA) [Mass fraction] 98 % Dr. Mallory Mcpherson Work Phone: [facility] Work Phone: 09-05-2021 14:51-0400 Body mass index (BMI) [Ratio] 34.8 kg/m2 Dr. Mallory Mcpherson Work Phone: [facility] Work Phone: 09-05-2021 14:51-0400 Body weight 106.[address] Mallory Mcpherson Work Phone: [facility] Work Phone: 09-05-2021 14:51-0400 Diastolic blood pressure 68 mm[Hg] Dr. Mallory Mcpherson Work Phone: [facility] Work Phone: 09-05-2021 14:51-0400 Heart rate 61 /min Dr. Mallory Mcpherson Work Phone: [facility] Work Phone: 09-05-2021 14:51-0400 Respiratory rate 18 /min Dr. Mallory Mcpherson Work Phone: [facility] Work Phone: 09-05-2021 14:51-0400 SaO2% (BldA) [Mass fraction] 97 % Dr. Mallory Mcpherson Work Phone: [facility] Work Phone: 09-05-2021 14:51-0400 Systolic blood pressure 111 mm[Hg] Dr. Mallory Mcpherson Work Phone: [facility] Work Phone: 09-03-2021 16:33-0400 Body weight 108.[address] Mallory Mcpherson Work Phone: [facility] Work Phone: 08-17-2021 23:00-0400 Body mass index (BMI) [Ratio] 35.2 kg/m2 Dr. Mallory Mcpherson Work Phone: [facility] Work Phone: 08-17-2021 15:35-0400 Body temperature 97.9 [degF] Dr. Mallory Mcpherson Work Phone: [facility] Work Phone: 08-17-2021 15:35-0400 Diastolic blood pressure 57 mm[Hg] Dr. Mallory Mcpherson Work Phone: [facility] Work Phone: 08-17-2021 15:35-0400 Heart rate 62 /min Dr. Mallory Mcpherson Work Phone: [facility] Work Phone: 08-17-2021 15:35-0400 Respiratory rate 16 /min Dr. Mallory Mcpherson Work Phone: [facility] Work Phone: 08-17-2021 15:35-0400 SaO2% (BldA) [Mass fraction] 96 % Dr. Mallory Mcpherson Work Phone: [facility] Work Phone: 08-17-2021 15:35-0400 Systolic blood pressure 110 mm[Hg] Dr. Mallory Mcpherson Work Phone: [facility] Work Phone: 08-16-2021 23:00-0400 Body mass index (BMI) [Ratio] 34.2 kg/m2 Dr. Mallory Mcpherson Work Phone: [facility] Work Phone: 08-15-2021 06:00-0400 Body weight 107.[address] Mallory Mcpherson Work Phone: [facility] Work Phone: 08-08-2021 12:47-0400 Body height 175.[address] Mallory Mcpherson Work Phone: [facility] Work Phone: 07-25-2021 03:30-0400 Body temperature 97.3 [degF] Michael Roblero MD Work Phone: [facility] 07-25-2021 03:30-0400 Diastolic blood pressure 82 mm[Hg] Michael Roblero MD Work Phone: [facility] 07-25-2021 03:30-0400 Heart rate 67 /min Michael Roblero MD Work Phone: [facility] 07-25-2021 03:30-0400 Respiratory rate 18 /min Michael Roblero MD Work Phone: [facility] 07-25-2021 03:30-0400 SaO2% (BldA) [Mass fraction] 95 % Michael Roblero MD Work Phone: [facility] 07-25-2021 03:30-0400 Systolic blood pressure 158 mm[Hg] Michael Roblero MD Work Phone: [facility] 07-22-2021 20:06-0400 Body height 175.3 cm Michael Roblero MD Work Phone: [facility] 07-22-2021 15:04-0400 Body mass index (BMI) [Ratio] 34.09 kg/m2 Michael Roblero MD Work Phone: [facility] 07-22-2021 15:04-0400 Body weight 104.7 kg Michael Roblero MD Work Phone: [facility] 07-22-2021 12:00-0400 Diastolic blood pressure 66 mm[Hg] Dr. Mallory Mcpherson Work Phone: [facility] Work Phone: 07-22-2021 12:00-0400 Heart rate 57 /min Dr. Mallory Mcpherson Work Phone: [facility] Work Phone: 07-22-2021 12:00-0400 Respiratory rate 14 /min Dr. Mallory Mcpherson Work Phone: [facility] Work Phone: 07-22-2021 12:00-0400 SaO2% (BldA) [Mass fraction] 98 % Dr. Mallory Mcpherson Work Phone: [facility] Work Phone: 07-22-2021 12:00-0400 Systolic blood pressure 120 mm[Hg] Dr. Mallory Mcpherson Work Phone: [facility] Work Phone: 07-22-2021 11:30-0400 Body height 175.[address] Mallory Mcpherson Work Phone: [facility] Work Phone: 07-22-2021 11:30-0400 Body mass index (BMI) [Ratio] 35.3 kg/m2 Dr. Mallory Mcpherson Work Phone: [facility] Work Phone: 07-22-2021 11:30-0400 Body weight 108.[address] Mallory Mcpherson Work Phone: [facility] Work Phone: 07-22-2021 11:15-0400 Body temperature 96 [degF] Dr. Mallory Mcpherson Work Phone: [facility] Work Phone: 07-22-2021 11:15-0400 Diastolic blood pressure 83 mm[Hg] Dr. Mallory Mcpherson Work Phone: [facility] Work Phone: 07-22-2021 11:15-0400 Heart rate 78 /min Dr. Mallory Mcpherson Work Phone: [facility] Work Phone: 07-22-2021 11:15-0400 Respiratory rate 20 /min Dr. Mallory Mcpherson Work Phone: [facility] Work Phone: 07-22-2021 11:15-0400 Systolic blood pressure 176 mm[Hg] Dr. Mallory Mcpherson Work Phone: [facility] Work Phone: 07-22-2021 07:38-0400 Body temperature 97.1 [degF] Dr. Mallory Mcpherson Work Phone: [facility] Work Phone: 07-22-2021 07:38-0400 Diastolic blood pressure 59 mm[Hg] Dr. Mallory Mcpherson Work Phone: [facility] Work Phone: 07-22-2021 07:38-0400 Heart rate 54 /min Dr. Mallory Mcpherson Work Phone: [facility] Work Phone: 07-22-2021 07:38-0400 Respiratory rate 16 /min Dr. Mallory Mcpherson Work Phone: [facility] Work Phone: 07-22-2021 07:38-0400 SaO2% (BldA) [Mass fraction] 94 % Dr. Mallory Mcpherson Work Phone: [facility] Work Phone: 07-22-2021 07:38-0400 Systolic blood pressure 135 mm[Hg] Dr. Mallory Mcpherson Work Phone: [facility] Work Phone: 07-21-2021 19:30-0400 Body mass index (BMI) [Ratio] 31.3 kg/m2 Dr. Mallory Mcpherson Work Phone: [facility] Work Phone: 07-21-2021 09:26-0400 Body weight 108.[address] Mallory Mcpherson Work Phone: [facility] Work Phone: 07-19-2021 14:04-0400 Body height 175.[address] Mallory Mcpherson Work Phone: [facility] Work Phone: 07-18-2021 08:00-0400 Body temperature 98.29 [degF] Satinder Buckner MD Work Phone: [facility] 07-18-2021 08:00-0400 Diastolic blood pressure 79 mm[Hg] Satinder Buckner MD Work Phone: [facility] 07-18-2021 08:00-0400 Heart rate 60 /min Satinder Buckner MD Work Phone: [facility] 07-18-2021 08:00-0400 Respiratory rate 18 /min Satinder Buckner MD Work Phone: [facility] 07-18-2021 08:00-0400 SaO2% (BldA) [Mass fraction] 94 % Satinder Buckner MD Work Phone: [facility] 07-18-2021 08:00-0400 Systolic blood pressure 171 mm[Hg] Satinder Buckner MD Work Phone: [facility] 07-17-2021 07:39-0400 Body height 175.3 cm Satinder Buckner MD Work Phone: [facility] 07-17-2021 07:39-0400 Body mass index (BMI) [Ratio] 31.43 kg/m2 Satinder Buckner MD Work Phone: [facility] 07-17-2021 07:39-0400 Body weight 96.6 kg Satinder Buckner MD Work Phone: [facility] 07-12-2021 10:55-0400 Body temperature 97.6 [degF] Dr. Mallory Mcpherson Work Phone: [facility] Work Phone: 07-12-2021 10:55-0400 Diastolic blood pressure 70 mm[Hg] Dr. Mallory Mcpherson Work Phone: [facility] Work Phone: 07-12-2021 10:55-0400 Heart rate 65 /min Dr. Mallory Mcpherson Work Phone: [facility] Work Phone: 07-12-2021 10:55-0400 Respiratory rate 20 /min Dr. Mallory Mcpherson Work Phone: [facility] Work Phone: 07-12-2021 10:55-0400 SaO2% (BldA) [Mass fraction] 96 % Dr. Mallory Mcpherson Work Phone: [facility] Work Phone: 07-12-2021 10:55-0400 Systolic blood pressure 127 mm[Hg] Dr. Mallory Mcpherson Work Phone: [facility] Work Phone: 07-12-2021 10:30-0400 Inhaled oxygen flow rate 2 L/min Dr. Mallory Mcpherson Work Phone: [facility] Work Phone: 07-12-2021 09:35-0400 Body height 185.[address] Mallory Mcpherson Work Phone: [facility] Work Phone: 07-12-2021 09:35-0400 Body mass index (BMI) [Ratio] 34.1 kg/m2 Dr. Mallory Mcpherson Work Phone: [facility] Work Phone: 07-12-2021 09:35-0400 Body weight 117.[address] Mallory Mcpherson Work Phone: [facility] Work Phone: 11-12-2016 10:25-0400 BMI (Body Mass Index) 32.84 kg/m2 [facility] Work Phone: 11-12-2016 10:25-0400 BP Diastolic 60 mm[Hg] [facility] Work Phone: 11-12-2016 10:25-0400 BP Systolic 102 mm[Hg] [facility] Work Phone: 11-12-2016 10:25-0400 Height 172.72 cm [facility] Work Phone: 11-12-2016 10:25-0400 Pulse (Heart Rate) 60 /min [facility] Work Phone: 11-12-2016 10:25-0400 Respiratory Rate 16 /min [facility] Work Phone: 11-12-2016 10:25-0400 Weight 97.98 kg [facility] Work Phone: 04-30-2016 10:08-0500 BP Diastolic 64 mm[Hg] Lulu Rocha RN [facility] Work Phone: 04-30-2016 10:08-0500 BP Systolic 120 mm[Hg] [facility] Work Phone: 04-30-2016 10:08-0500 Height 172.72 cm [facility] Work Phone: 04-30-2016 10:08-0500 Pulse (Heart Rate) 64 /min [facility] Work Phone: 04-30-2016 10:08-0500 Respiratory Rate 16 /min [facility] Work Phone: 08-21-2015 [id number] BMI (Body Mass Index) 29.19 kg/m2 Lulu Rocha RN [facility] Work Phone: 08-21-2015 10:110400 BSA (Body Surface Area) 2.01 m2 Lulu Rocha RN [facility] Work Phone: 08-21-2015 10:110400 Weight 87.09 kg Lulu Rocha RN [facility] Work Phone: 08-15-2014 08:43-0400 Heart rate 46 /min [facility] Work Phone: Encounters Encounter Date Encounter Type Care Provider Facility Start: 11-09-2024 ambulatory [facility] Facility :[facility] Start: 10-25-[address] Luis Carlos izaguirre MD -Physical Therapy Work Phone: Start: 10-17-2024 End: 10-17-[address] Mallory Mcpherson DO Work Phone: -Laboratory Start: 10-17-2024 End: 10-17-[address] Miguel Carrillo DO -Laboratory Work Phone: Start: 10-17-2024 End: 10-17-2024 ambulatory Miguel Carrillo Facility:[facility] Start: 10-15-2024 End: 10-15-[address] Mallory Mcpherson DO Work Phone: -[facility] Start: 10-15-2024 End: 10-15-[address] Iker Ratliff MD -[facility] Work Phone: Start: 09-27-[address] Luis Carlos izaguirre MD -Physical Therapy Work Phone: Start: 09-15-2024 End: 09-15-[address] Mallory Mcpherson DO Work Phone: -[facility] Start: 09-15-2024 End: 09-15-[address] Iker Ratliff MD -[facility] Work Phone: Start: 09-06-[address] Luis Carlos izaguirre MD -Physical Therapy Work Phone: Start: 08-29-[address] Luis Carlos izaguirre MD -Occupational Therapy Work Phone: Start: 08-16-[address] Luis Carlos izaguirre MD -Physical Therapy Work Phone: Start: 08-16-2024 End: 08-16-[address] Mallory Mcpherson DO Work Phone: [facility] Work Phone: Start: 08-16-2024 End: 08-16-2024 Patient encounter procedure Saundra Hernandez -[facility] Work Phone: Start: 08-08-2024 End: 08-08-2024 Patient encounter procedure Alessandra NGUYỄN -[facility] Work Phone: Start: 08-08-2024 End: 08-08-[address] Mallory Mcpherson DO Work Phone: [facility] Work Phone: Start: 08-08-[address] Luis Carlos izaguirre MD -Speech Therapy Work Phone: Start: 04-07-2024 End: 04-07-2024 ambulatory [facility] Facility:[facility] Start: 03-27-2024 ambulatory [facility] Facility :[facility] Start: 03-27-2024 End: 05-01-2024 Evaluation and management of inpatient Dr. Luis Carlos Gallardo MD -Transitional Care Unit Start: 03-23-2024 ambulatory [facility] Facility :[facility] Start: 03-23-2024 End: 03-27-2024 Evaluation and management of inpatient [facility] Facility:[facility] Start: 02-28-2024 End: 03-23-2024 Evaluation and management of inpatient Mallory Ky Facility:[facility] Start: 02-23-2024 ambulatory Mallory Ky Facility :[facility] Start: 02-23-2024 End: 02-28-2024 Evaluation and management of inpatient Sindi L Melanie Facility:[facility] Start: 02-22-2024 ambulatory Sindi L White Facility :[facility] Start: 02-21-2024 End: 02-21-2024 Emergency department patient visit Jesse eYe Facility:[facility] Start: 02-14-2024 ambulatory Mallory Ky Facility :[facility] Start: 02-13-2024 End: 02-13-2024 ambulatory Mallory Ky Facility:[facility] Start: 02-13-2024 ambulatory Mallory Ky Facility :[facility] Start: 02-13-2024 End: 02-17-2024 Evaluation and management of inpatient Mallory Ky Facility:[facility] Start: 02-12-2024 ambulatory Mallory Ky Facility :[facility] Start: 02-09-2024 End: 02-13-2024 ambulatory MALLORY KY DO [facility] Start: 02-09-2024 End: 02-13-2024 Outreach Lab MALLORY KY DO [facility] Start: 02-07-2024 End: 05-10-2024 ambulatory Mallory Ky Facility:[facility] Start: 02-01-2024 End: 02-01-2024 ambulatory Mallory Ky Facility: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 Start: 09-28-2023 End: 10-02-2023 ambulatory MALLORY KY DO Facility:[facility] Start: 09-28-2023 End: 10-02-2023 Outreach Lab MALLORY MCPHERSON DO [facility] Start: 09-08-2023 End: 09-08-2023 ambulatory MALLORY GRANTY DO Facility:[facility] Start: 09-08-2023 End: 09-08-2023 Patient encounter procedure MALLORY GRANTDevang PEREZ [facility] Start: 07-09-2023 End: 07-13-2023 ambulatory KIRBY LOPEZ AIR TRAFFIC SUPERVISOR-HOME CARE ASSISTANT Facility:[facility] Start: 05-25-2023 End: 05-25-[address] Mallory Mcpherson Work Phone: [facility] Work Phone: Start: 05-25-2023 End: 05-25-[address] Mallory Mcpherson Work Phone: [facility]-Physical Therapy Work Phone: Start: 05-04-2023 End: 05-04-[address] Mallory Mcpherson Work Phone: [facility] Work Phone: Start: 04-11-2023 End: 04-11-[address] Mallory Mcpherson Work Phone: [facility] Work Phone: Start: 03-25-2023 End: 03-29-2023 ambulatory MALLORY LANGLEYSAY Facility:[facility] Start: 03-25-2023 End: 03-29-2023 Outreach Lab MALLORY MCPHERSON DO [facility] Start: 03-11-2023 End: 03-11-[address] Mallory Mcpherson Work Phone: [facility] Work Phone: Start: 01-29-2023 End: 01-29-[address] Mallory Mcpherson Work Phone: [facility]-Laboratory Work Phone: Start: 11-04-2022 End: 11-04-[address] Mallory Mcpherson Work Phone: [facility] Work Phone: Start: 11-04-2022 End: 11-04-[address] Mallory Mcpherson Work Phone: [facility] Work Phone: Start: 11-02-[address] Lan Mcpherson Work Phone: [facility]-Speech Therapy Work Phone: Start: 10-15-2022 End: 10-15-2022 Emergency department patient visit Dr. Mallory Mcpherson Work Phone: [facility]-Emergency Department Work Phone: Start: 10-13-[address] Lan Mcpherson Work Phone: [facility]-Physical Therapy Work Phone: Start: 10-05-2022 End: 10-05-[address] Mallory Mcpherson Work Phone: [facility]-Speech Therapy Work Phone: Start: 08-31-2022 End: 09-04-2022 Outreach Lab MALLORY MCPHERSON DO [facility] Start: 08-28-2022 Non-patient / Non-visit Dr. Stefanie Mcpherson Work Phone: [facility] Inpatient Physicians Start: 08-27-2022 Non-patient / Non-visit Dr. Stefanie Mcpherson Work Phone: [facility] Start: 08-26-2022 Non-patient / Non-visit Dr. Stefanie Mcpherson Work Phone: [facility] Start: 08-25-2022 Non-patient / Non-visit Dr. Stefanie Mcpherson Work Phone: [facility] Start: 08-25-2022 End: 08-28-2022 Evaluation and management of inpatient Dr. Mallory Mcpherson Work Phone: [facility]-Medical Surgical 3 Start: 08-18-[address] Lan Mcpherson Work Phone: [facility]-Speech Therapy Start: 06-18-2022 End: 06-18-[address] Mallory Mcpherson Work Phone: [facility] Start: 05-19-2022 End: 05-19-[address] Mallory Mcpherson Work Phone: [facility] Start: 03-26-2022 End: 03-26-[address] Mallory Mcpherson Work Phone: [facility] Work Phone: Start: 03-26-2022 End: 03-26-[address] 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 Mallory Mcpherson Work Phone: [facility] Start: 12-24-2021 End: 12-28-2021 Outreach Lab KASSIDY BRUCE AIR TRAFFIC SUPERVISOR-HOME CARE ASSISTANT [facility] Start: 12-04-2021 End: 12-04-[address] Mallory Mcpherson Work Phone: [facility] Start: 09-16-2021 End: 09-16-[address] Mallory Mcpherson Work Phone: [facility] Start: 09-08-2021 End: 09-08-[address] Mallory Mcpherson Work Phone: [facility] Start: 09-07-2021 End: 09-07-2021 Emergency department patient visit Dr. Mallory Mcpherson Work Phone: [facility]-Emergency Department Start: 09-05-2021 End: 09-05-[address] Mallory Mcpherson Work Phone: [facility] Start: 08-17-2021 End: 09-19-2021 Evaluation and management of inpatient Dr. Mallory Mcpherson Work Phone: [facility]-Transitional Care Unit Start: 08-15-2021 Non-patient / Non-visit Dr. Stefanie Mcpherson Work Phone: [facility] Start: 08-11-2021 Non-patient / Non-visit Dr. Stefanie Mcpherson Work Phone: [facility] Start: 08-10-2021 Non-patient / Non-visit Dr. Stefanie Mcpherson Work Phone: [facility] Start: 08-08-2021 Non-patient / Non-visit Dr. Stefanie Mcpherson Work Phone: [facility] Start: 08-06-2021 Non-patient / Non-visit Dr. Stefanie Mcpherson Work Phone: [facility] Start: 08-05-2021 Non-patient / Non-visit Dr. Stefanie Mcpherson Work Phone: [facility] Start: 08-04-2021 Non-patient / Non-visit Dr. Stefanie Mcpherson Work Phone: [facility] Start: 08-01-2021 Non-patient / Non-visit Dr. Stefanie Mcpherson Work Phone: [facility] Start: 07-31-2021 Non-patient / Non-visit Dr. Stefanie Mcpherson Work Phone: [facility] Start: 07-28-2021 Non-patient / Non-visit Dr. Stefanie Mcpherson Work Phone: [facility] Start: 07-25-2021 Non-patient / Non-visit Dr. Stefanie Mcpherson Work Phone: [facility] Start: 07-25-2021 End: 08-17-2021 Evaluation and management of inpatient Dr. Mallory Mcpherson Work Phone: [facility]-Rehab Unit Start: 07-23-2021 End: 07-23-[address] Mallory Mcpherson Work Phone: [facility] Start: 07-22-2021 End: 07-25-2021 Evaluation and management of inpatient [facility] Facility:[facility] Start: 07-22-2021 End: 07-25-2021 Evaluation and management of inpatient Michael Roblero MD Work Phone: [id number] Comment on above: Altered mental statu s Start: 07-22-2021 End: 07-22-2021 Evaluation and management of inpatient Dr. Mallory Mcpherson Work Phone: [facility]-Intensive Care Unit Start: 07-22-2021 Non-patient / Non-visit Dr. Stefanie Mcpherson Work Phone: [facility] Start: 07-18-2021 End: 07-22-2021 Evaluation and management of inpatient Dr. Mallory Mcpherson Work Phone: [facility]Re[facility] Unit Start: 07-12-2021 End: 07-18-2021 Evaluation and management of inpatient COREEN RUSS Facility:[facility] Start: 07-12-2021 End: 07-18-2021 Evaluation and management of inpatient Satinder Buckner MD Work Phone: [id number] Comment on above: Stroke Start: 07-12-2021 End: 07-12-[address] Mallory Mcpherson Work Phone: [facility] Start: 07-12-2021 End: 07-12-2021 Emergency department patient visit Dr. Mallory Mcpherson Work Phone: [facility]-Emergency Department Start: 05-30-2021 Non-patient / Non-visit Dr. Stefanie Mcpherson Work Phone: [facility] Start: 05-30-2021 End: 05-30-[address] Mallory Mcpherson Work Phone: [facility]-Cardiovascular Services Start: 05-28-2021 End: 05-28-[address] Mallory Mcpherson Work Phone: [facility]-Ultrasound, [facility] Start: 05-07-2021 End: 05-07-[address] Mallory Mcpherson Work Phone: [facility]-Massage Therapy, [facility] Start: 05-07-2021 End: 05-07-[address] Mallory Mcpherson Work Phone: [facility] Start: 05-06-2021 Non-patient / Non-visit Dr. Stefanie Mcpherson Work Phone: [facility] Start: 05-02-2021 End: 05-02-[address] Mallory Mcpherson Work Phone: [facility] Heart [facility] Start: 03-24-2021 End: 03-28-2021 Outreach Lab MALLORY MCPHERSON DO [facility] Start: 03-05-[address] Mallory Mcphesron Work Phone: [facility]-Pulmonary Services/Neurology Start: 03-02-2021 End: 03-02-[address] Mallory Mcpherson Work Phone: [facility] Procedures Date Procedure Procedure Detail Performing Clinician Start: 04-26-[address] Mallory Mcpherson DO Work Phone: Start: 04-25-[address] Mallory Mcpherson DO Work Phone: Start: 04-25-2024 Measurement of renal function Dr. Mallory Mcpherson DO Work Phone: Comment on above: GFR Calc Start: 04-06-2024 X-ray of chest, PA a nd lateral views Dr. Mallory Mcpherson DO Work Phone: Start: 04-06-[address] Mallory Mcpherson DO Work Phone: Start: 04-06-[address] Mallory Mcpherson DO Work Phone: Start: 04-05-2024 Urnls dip stick/tabl et reagent auto microscopy Dr. Mallory Mcpherson DO Work Phone: Start: 04-05-[address] Lan Mcpherson DO Work Phone: Start: 04-05-[address] Lan Mcpherson DO Work Phone: Start: 04-03-2024 Plain X-ray abdomen Dr. Mallory Mcpherson DO Work Phone: Start: 10-15-2022 CT cervical spine wi thout contrast Dr. Mallory Mcpherson Work Phone: Start: 10-15-2022 CT of head without contrast Dr. Mallory Mcpherson Work Phone: Start: 08-27-2022 Computed tomography of abdomen and pelvis with contrast Dr. Mallory Mcpherson Work Phone: Start: 08-25-2022 Bacteria identified in Blood by Culture Dr. Mallory Mcpherson Work Phone: Start: 08-25-[address] Lan Mcpherson Work Phone: Start: 08-25-2022 Plain chest X-ray Dr. Joan Mcpherson Work Phone: Start: 08-25-2022 Computed tomography of abdomen and pelvis with intravenous contrast Dr. Mallory Mcpherson Work Phone: Start: 09-16-2021 MRI of brain without contrast Dr. Mallory Mcpherson Work Phone: Start: 09-08-2021 MRI of brain without contrast Dr. Mallory Mcpherson Work Phone: Start: 09-07-2021 CT of head without contrast Dr. Mallory Mcpherson Work Phone: Start: 08-20-2021 Diagnostic radiograp hy of abdomen Dr. Mallory Mcpherson Work Phone: Start: 08-16-2021 End: 08-16-[address] Mallory Mcpherson Work Phone: Start: 08-09-2021 Measurement of occul t blood in stool specimen using immunoassay Dr. Mallory Mcpherson Work Phone: Start: 07-25-[address] Lan Mcpherson Work Phone: Start: 07-23-2021 DEVICE EVALUATION Other Other Start: 07-23-2021 Creatinine blood Bethany Stein MD Work Phone: Start: 07-23-2021 Hepatic function panel Christophe Stein MD Work Phone: Start: 07-22-2021 Meropenem ZACH RIVERA Comment on above: Order Comment: For i ndwelling catheters, specimen collection is acceptable on catheter day 1 and 2 only. Hope top vacutainer. Urine must be to the fill line to process (4mls). If minimum volume, send urine in a yellow top vacutainer tube.For straight cath urines, a cut off of equal or greater than 10,000 CFU/mL is considered significant. Performed By: #### L [id number], [id number] #### [facility] ([facility]) [address] [place] [address] Start: 07-22-2021 Radiologic exam ches t single view Mirza Ritchie MD Work Phone: Start: 07-22-2021 Bilirubin direct Mirza Ritchie MD Work Phone: Start: 07-22-2021 Blood gases any comb ination ph pco2 po2 co2 hco3 Mirza Ritchie MD Work Phone: Start: 07-22-2021 CBC AND ELECTRONIC DIFF Mirza Ritchie MD Work Phone: Start: 07-22-2021 Complete blood count with white cell differential, automated Mirza Rithcie MD Work Phone: Start: 07-22-2021 Culture bct isol&prs mptv id isolate ea urine Mirza Ritchie MD Work Phone: Start: 07-22-2021 GOLD TOP TUBE Mirza serra MD Work Phone: Start: 07-22-2021 LACTATE, WHOLE BLOOD, SERIAL Mirza Ritchie MD Work Phone: Start: 07-22-2021 LAVENDER TOP TUBE Jerardo Ritchie MD Work Phone: Start: 07-22-2021 LT BLUE TOP TUBE Mirza Ritchie MD Work Phone: Start: 07-22-2021 MINT GREEN TOP TUBE Wilfred Ritchie MD Work Phone: Start: 07-22-2021 RAINBOW DRAW Mirza best MD Work Phone: Start: 07-22-2021 Ct abdomen & pelvis w/o contrast material Michael Roblero MD Work Phone: Start: 07-22-2021 Ct head/brain w/o co ntrast material Mirza Ritchie MD Work Phone: Start: 07-22-2021 Glucose measurement, blood Denver Hampton MD Work Phone: Start: 07-22-2021 CT angiography of he ad and neck Dr. Mallory Mcpherson Work Phone: Start: 07-22-2021 CT of head without contrast Dr. Mallory Mcpherson Work Phone: Start: 07-17-2021 TTE w or wo fol wcon,Doppler Jaxon Dahl MD Work Phone: Start: 07-17-2021 Creatinine blood Julio Cesar Law AIR TRAFFIC SUPERVISOR-HOME CARE ASSISTANT Work Phone: Start: 07-16-2021 Mri brain brain stem w/o contrast material Jaxon Dahl MD Work Phone: Start: 07-16-2021 Blood count platelet automated Julio Cesar Law AIR TRAFFIC SUPERVISOR-HOME CARE ASSISTANT Work Phone: Start: 07-15-2021 CARDIAC RHYTHM Other Ot her Start: 07-15-2021 End: 07-15-2021 Slctv cath intrnl carotid art angio intrcrnl art Bill Serrato MD Work Phone: Start: 07-15-2021 Creatinine blood Jaxno Dahl MD Work Phone: Start: 07-14-2021 DEVICE EVALUATION Other Other Start: 07-14-2021 Creatinine blood Jaxon Dahl MD Work Phone: Start: 07-13-2021 Ct head/brain w/o co ntrast material Jaxon Dahl MD Work Phone: Start: 07-13-2021 Lipid 1996 panel - S libby or Plasma Satinder Buckner MD Work Phone: Start: 07-13-2021 Hemoglobin glycosylated a1c Jaxon Dahl MD Work Phone: Start: 07-13-2021 Lipid panel Jaxon valero MD Work Phone: Start: 07-12-2021 Culture bct isol&prs mptv id isolate ea urine Michael Contreras MD Work Phone: Start: 07-12-2021 EXTRA MICRO Michael Contreras MD Work Phone: Start: 07-12-2021 Urnls dip stick/tabl et rgnt auto w/o microscopy Michael Contreras MD Work Phone: Start: 07-12-2021 Radiologic exam abdo men 1 view Jaxon Dahl MD Work Phone: Start: 07-12-2021 Blood gases any comb ination ph pco2 po2 co2 hco3 Coreen Russ MD Work Phone: Start: 07-12-2021 End: 07-12-2021 Ct angiography head w/contrast/noncontrast Michael Contreras MD Work Phone: Start: 07-12-2021 CBC AND ELECTRONIC DIFF Michael Contreras MD Work Phone: Start: 07-12-2021 Complete blood count with white cell differential, automated Michael oCntreras MD Work Phone: Start: 07-12-2021 EXTRA LAVENDER TOP Boom Buckner MD Work Phone: Start: 07-12-2021 EXTRA TUBES Satinder Nguyễn MD Work Phone: Start: 07-12-2021 Fibrinogen activity Cheyenne Contreras MD Work Phone: Start: 07-12-2021 GOLD TOP TUBE Michael Contreras MD Work Phone: Start: 07-12-2021 End: 07-12-2021 Hepatic function panel Michael Contreras MD Work Phone: Start: 07-12-2021 LAVENDER TOP TUBE Michael Contreras MD Work Phone: Start: 07-12-2021 LT BLUE TOP TUBE Michael Contreras MD Work Phone: Start: 07-12-2021 MINT GREEN TOP TUBE Cheyenne Contreras MD Work Phone: Start: 07-12-2021 RAINBOW DRAW Michael Spears To teresa Contreras MD Work Phone: Start: 07-12-2021 Glucose measurement, blood Other Other OT Start: 07-12-2021 CT angiography of he ad and neck Dr. Mallory Mcpherson Work Phone: Start: 07-12-2021 CT of head without contrast Dr. Mallory Mcpherson Work Phone: Start: 05-28-[address] Stefanie Mcpherson Work Phone: Start: 11-12-2016 End: 11-12-2016 Dietary management education, guidance, and counseling Criss Mo Start: 11-12-2016 End: 11-12-2016 Follow Up Appt 6 months Ignacio Quan MD Start: 11-12-2016 End: 11-12-2016 MMM Ignacio Quan MD Start: 04-30-2016 End: 04-30-2016 Follow Up Appt 6 months Ignacio Quan MD Start: 04-30-2016 End: 04-30-2016 MMM Ignacio Quan MD Start: 08-21-2015 End: 08-21-2015 Dietary management education, guidance, and counseling Lulu Rocha RN Start: 08-21-2015 End: 08-21-2015 Follow Up Appt 6 months Lulu adams PA-C Work Phone: Start: 08-21-2015 End: 08-21-2015 PFM Lulu Moreno PA-C Work Phone: Start: 05-31-2015 End: 07-29-2015 Follow Up Appt 3 months Toshia Borrero Start: 05-31-2015 End: 07-29-2015 Pacer Clinic Iker Ratliff MD Start: 05-31-2015 End: 06-04-2015 Pm device progr eval, dual Iker Ratliff MD Start: 05-15-2015 End: 05-15-2015 Follow Up Appt 3 months Ignacio Quan MD Start: 05-15-2015 End: 05-15-2015 MMM Ignacio Quan MD Start: 05-15-2015 End: 07-29-2015 Pacemaker Primary Insertion Ignacio waite MD Start: 02-05-2015 Neck structure (body structure) MALLORY MCPHERSON DO Comment on above: C5-7 fx repair Start: 01-02-2015 End: 01-03-2015 Documentation of current medications Lulu Moreno PA-C Work Phone: Start: 01-02-2015 End: 01-02-2015 Follow Up Appt 6 months Lulu adams PA-C Work Phone: Start: 01-02-2015 End: 01-02-2015 PFM Lulu Moreno PA-C Work Phone: Start: 09-26-2014 End: 09-27-2014 Documentation of current medications Ignacio Quan MD Start: 09-26-2014 End: 09-26-2014 Follow Up Appt 3 months Ignacio Quan MD Start: 09-26-2014 End: 09-26-2014 MMM Ignacio Quan MD Start: 08-13-2014 End: 08-15-2014 Electrocardiogram, complete Ignacio waite MD Start: 07-30-2014 End: 07-29-2015 *BMP Ignacio Quan MD Start: 07-12-2014 End: 07-16-2014 *BMP Ignacio Quan MD Start: 07-12-2014 End: 07-29-2015 24 hour holter monitor Ignacio Quan MD Start: 07-12-2014 End: 07-13-2014 Documentation of current medications Ignacio Quan MD Start: 07-12-2014 End: 07-20-2014 Echocardiography Ignacio Quan MD Start: 07-12-2014 End: 07-27-2014 Electrocardiogram, complete Ignacio waite MD Start: 07-12-2014 End: 07-12-2014 Follow Up Appt 3 months Ignacio Quan MD Start: 07-12-2014 End: 07-12-2014 PFM Ignacio Quan MD Bacteria identified in Blood by Culture Dr. Mallory Mcpherson Work Phone: Measurement of occul t blood in stool specimen using immunoassay Dr. Mallory Mcpherson Work Phone: Urine culture Dr. Mallory mcconnell Work Phone: Urine culture Dr. Mallory mcconnell Work Phone: Viral antigen assay Dr. Montez Langleysay Work Phone: Plan of Treatment Date Care Activity Detail Author Start: 07-13-2026 Fasting lipid profile LIPID SCREENING [facility] Start: 07-13-2026 LIPID SCREEN LIPID SCREEN [facility] Start: 05-01-2024 Development of care plan [facility] Start: 05-01-2024 Patient discharge [facility] Start: 04-27-2024 Speech therapy management [facility] Start: 04-24-2024 Developing a treatment plan [facility] Start: 04-24-2024 Development of care plan [facility] Start: 04-10-2024 [facility] Start: 04-10-2024 Consultation [facility] Start: 04-08-2024 Consultation [facility] Start: 04-08-2024 Consultation [facility] Start: 04-07-2024 Inhalation therapy procedure [facility] Start: 03-29-2024 Patient referral to dietitian [facility] Start: 03-28-2024 Speech therapy management [facility] Start: 03-28-2024 [facility] Start: 03-28-2024 Development of care plan [facility] Start: 03-28-2024 Developing a treatment plan [facility] Start: 03-27-2024 Following clinical pathway protocol [facility] Start: 03-27-2024 Speech therapy assessment [facility] Start: 03-27-2024 Following clinical pathway protocol [facility] Start: 03-27-2024 Contact precautions [facility] Start: 03-27-2024 Admission procedure [facility] Start: 03-27-2024 Measuring intake and output [facility] Start: 03-27-2024 Patient referral to dietitian [facility] Start: 03-27-2024 Referral to occupational therapist [facility] Start: 03-27-2024 Referral to service [facility] Start: 03-27-2024 Vital signs measurements [facility] Start: 03-27-2024 End: 03-27-2024 [facility] Start: 10-15-2022 Simple repair f/e/e/n/l/m 2.5cm/< RPR F/E/E/N/L/M 2.5 CM/< [facility] Start: 08-28-2022 Patient discharge [facility] Start: 08-28-2022 Referral to service [facility] Start: 08-26-2022 Referral to occupational therapist [facility] Start: 08-26-2022 Referral to service [facility] Start: 08-25-2022 End: 08-26-2022 [facility] Start: 08-25-2022 Ambulation without limitation [facility] Start: 08-25-2022 Assessment of risk of venous thromboembolism [facility] Start: 08-25-2022 Insertion of catheter into peripheral vein [facility] Start: 08-25-2022 Providing care according to standard [facility] Start: 08-25-2022 Following clinical pathway protocol [facility] Start: 08-25-2022 Admission procedure [facility] Start: 08-25-2022 End: 08-25-2022 Blood culture [facility] Start: 12-04-2021 Patient referral [facility] Work Phone: Start: 11-13-2021 Influenza vaccination [facility] Start: 10-06-2021 Blood chemistry [facility] Work Phone: Start: 09-29-2021 Blood chemistry [facility] Work Phone: Start: 09-22-2021 Blood chemistry [facility] Work Phone: Start: 09-19-2021 Development of care plan [facility] Work Phone: Start: 09-19-2021 Patient discharge [facility] Work Phone: Start: 09-15-2021 Speech therapy management [facility] Work Phone: Start: 09-15-2021 Blood chemistry [facility] Work Phone: Start: 09-12-2021 Development of care plan [facility] Work Phone: Start: 09-11-2021 Developing a treatment plan [facility] Work Phone: Start: 09-11-2021 [facility] Work Phone: Start: 09-10-2021 Verification routine [facility] Work Phone: Start: 09-10-2021 [facility] Work Phone: Start: 09-08-2021 [facility] Work Phone: Start: 09-08-2021 Following clinical pathway protocol [facility] Work Phone: Start: 09-08-2021 Consultation [facility] Work Phone: Start: 09-08-2021 Blood chemistry [facility] Work Phone: Start: 09-07-2021 [facility] Work Phone: Start: 09-07-2021 End: 09-07-2021 Blood culture [facility] Work Phone: Start: 09-07-2021 Patient discharge [facility] Work Phone: Start: 09-06-2021 [facility] Work Phone: Start: 08-19-2021 Patient referral to dietitian [facility] Work Phone: Start: 08-18-2021 Development of care plan [facility] Work Phone: Start: 08-18-2021 Speech therapy management [facility] Work Phone: Start: 08-18-2021 Developing a treatment plan [facility] Work Phone: Start: 08-17-2021 Introduction of urinary catheter [facility] Work Phone: Start: 08-17-2021 Following clinical pathway protocol [facility] Work Phone: Start: 08-17-2021 Verification routine [facility] Work Phone: Start: 08-17-2021 Speech therapy assessment [facility] Work Phone: Start: 08-17-2021 Admission procedure [facility] Work Phone: Start: 08-17-2021 Measuring intake and output [facility] Work Phone: Start: 08-17-2021 Patient referral to dietitian [facility] Work Phone: Start: 08-17-2021 Referral to occupational therapist [facility] Work Phone: Start: 08-17-2021 Referral to service [facility] Work Phone: Start: 08-17-2021 Vital signs measurements [facility] Work Phone: Start: 08-17-2021 End: 08-17-2021 [facility] Work Phone: Start: 08-17-2021 Patient discharge [facility] Work Phone: Start: 08-17-2021 Removal of urinary catheter [facility] Work Phone: Start: 08-07-2021 End: 08-07-2021 Patient encounter procedure 08/07/2021 Office Visit Neurology Sarah Aleman, AIR TRAFFIC SUPERVISOR-HOME CARE ASSISTANT [address] [place] [address] [facility] Start: 08-06-2021 Measuring intake and output [facility] Work Phone: Start: 08-04-2021 Following clinical pathway protocol [facility] Work Phone: Start: 08-04-2021 [facility] Work Phone: Start: 08-04-2021 Catheterization of vein [facility] Work Phone: Start: 08-03-2021 [facility] Work Phone: Start: 08-01-2021 [facility] Work Phone: Start: 07-28-2021 End: 07-28-2021 Patient encounter procedure 07/28/2021 Office Visit Neurologic Surgery Bill Serrato MD [address] [place] [address] [facility] Start: 07-25-2021 [facility] Work Phone: Start: 07-25-2021 Referral to service [facility] Work Phone: Start: 07-25-2021 Urinary bladder training [facility] Work Phone: Start: 07-25-2021 Admission procedure [facility] Work Phone: Start: 07-25-2021 Referral to occupational therapist [facility] Work Phone: Start: 07-25-2021 Referral to service [facility] Work Phone: Start: 07-25-2021 Vital signs measurements [facility] Work Phone: Start: 07-25-2021 [facility] Work Phone: Start: 07-25-2021 Application of antithromboembolic stockings [facility] Work Phone: Start: 07-25-2021 Incentive spirometry [facility] Work Phone: Start: 07-25-2021 Patient referral to dietitian [facility] Work Phone: Start: 07-25-2021 Speech therapy assessment [facility] Work Phone: Start: 07-22-2021 Cardiac monitoring [facility] Work Phone: Start: 07-22-2021 Catheterization of vein [facility] Work Phone: Start: 07-22-2021 Continuous pulse oximetry [facility] Work Phone: Start: 07-22-2021 Elevation of head of bed [facility] Work Phone: Start: 07-22-2021 Implementation of planned interventions [facility] Work Phone: Start: 07-22-2021 Notification of physician [facility] Work Phone: Start: 07-22-2021 Oxygen therapy [facility] Work Phone: Start: 07-22-2021 [facility] Work Phone: Start: 07-22-2021 End: 07-22-2021 Patient discharge [facility] Work Phone: Start: 07-22-2021 CT angiography of head and neck CTA Head AND Neck W/ Contrast [facility] Work Phone: Start: 07-22-2021 Patient discharge [facility] Work Phone: Start: 07-21-2021 Introduction of urinary catheter [facility] Work Phone: Start: 07-20-2021 [facility] Work Phone: Start: 07-20-2021 [facility] Work Phone: Start: 07-18-2021 End: 07-19-2021 [facility] Work Phone: Start: 07-18-2021 Referral to occupational therapist [facility] Work Phone: Start: 07-18-2021 Referral to service [facility] Work Phone: Start: 07-18-2021 Speech therapy assessment [facility] Work Phone: Start: 07-18-2021 Application of intermittent pneumatic compression device [facility] Work Phone: Start: 07-18-2021 Urinary bladder training [facility] Work Phone: Start: 07-18-2021 Admission procedure [facility] Work Phone: Start: 07-18-2021 Patient referral to dietitian [facility] Work Phone: Start: 07-18-2021 Vital signs measurements [facility] Work Phone: Start: 07-18-2021 Application of antithromboembolic stockings [facility] Work Phone: Start: 07-18-2021 Incentive spirometry [facility] Work Phone: Start: 07-12-2021 Bleeding precautions [facility] Work Phone: Start: 07-12-2021 Consultation [facility] Work Phone: Start: 07-12-2021 Oxygen therapy [facility] Work Phone: Start: 07-12-2021 [facility] Work Phone: Start: 03-15-2021 ADVANCE DIRECTIVE DISCUSSION ADVANCE DIRECTIVE DISCUSSION [facility] Start: 03-15-2021 DEPRESSION ASSESSMENT DEPRESSION ASSESSMENT [facility] Start: 02-08-2018 DIABETES SCREEN DIABETES SCREEN [facility] Start: 05-17-2017 End: 05-17-2017 Appointment Appointment [facility] Work Phone: Start: 12-22-2016 End: 12-22-2016 Appointment [facility] Work Phone: Start: 11-12-2016 End: 11-12-2016 Appointment Appointment [facility] Work Phone: Start: 11-12-2016 End: 11-12-2016 Follow Up Appt 6 months Follow Up Appt 6 months [facility] Work Phone: Start: 11-12-2016 End: 11-12-2016 MMM MMM [facility] Work Phone: Start: 04-30-2016 End: 04-30-2016 Follow Up Appt 6 months Follow Up Appt 6 months [facility] Phone: Start: 04-30-2016 End: 04-30-2016 MMM MMM [facility] Work Phone: Start: 03-20-2016 End: 03-20-2016 Urine culture, bacteria *C&S, Routine Bacteria [facility] Work Phone: Start: 02-28-2016 Colonoscopy COLORECTAL CANCER SCREENING DISCUSSION [facility] Start: 08-21-2015 End: 08-21-2015 Follow Up Appt 6 months Follow Up Appt 6 months [facility] Work Phone: Start: 08-21-2015 End: 08-21-2015 PFM PFM [facility] Work Phone: Start: 05-31-2015 End: 07-29-2015 Follow Up Appt 3 months Follow Up Appt 3 months [facility] Work Phone: Start: 05-31-2015 End: 07-29-2015 Pacer Clinic Pacer Clinic [facility] Work Phone: Start: 05-15-2015 End: 05-15-2015 Follow Up Appt 3 months Follow Up Appt 3 months [facility] Work Phone: Start: 05-15-2015 End: 05-15-2015 MMM MMM [facility] Work Phone: Start: 05-15-2015 End: 07-29-2015 Pacemaker Primary Insertion Pacemaker Primary Insertion [facility] Work Phone: Start: 01-02-2015 End: 01-02-2015 Follow Up Appt 6 months Follow Up Appt 6 months [facility] Work Phone: Start: 01-02-2015 End: 01-02-2015 PFM PFM [facility] Work Phone: Start: 09-26-2014 End: 09-26-2014 Follow Up Appt 3 months Follow Up Appt 3 months [facility] Work Phone: Start: 09-26-2014 End: 09-26-2014 MMM MMM [facility] Work Phone: Start: 08-13-2014 End: 08-15-2014 Electrocardiogram, complete EKG (In office) [facility] Work Phone: Start: 07-30-2014 End: 07-29-2015 *BMP *BMP [facility] Work Phone: Start: 07-12-2014 End: 07-16-2014 *BMP *BMP [facility] [employer] Work Phone: Start: 07-12-2014 End: 07-29-2015 24 hour holter monitor 24 hour holter monitor [facility] Work Phone: Start: 07-12-2014 End: 07-20-2014 Echocardiography Echocardiogram (complete) [facility] Work Phone: Start: 07-12-2014 End: 07-27-2014 Electrocardiogram, complete EKG (In office) [facility] [employer] Work Phone: Start: 07-12-2014 End: 07-12-2014 Follow Up Appt 3 months Follow Up Appt 3 months [facility] [employer] Work Phone: Start: 07-12-2014 End: 07-20-2014 Nuclear stress test -exercise Nuclear stress test -exercise [facility] [employer] Work Phone: Start: 07-12-2014 End: 07-12-2014 PFM PFM [facility] [employer] Work Phone: Start: 06-14-2011 Pneumococcal vaccination PNEUMOCOCCAL VACCINE SERIES (1 - PCV) [facility] Start: 06-14-2011 PNEUMOCOCCAL: 65+ (1 - PCV) PNEUMOCOCCAL: 65+ (1 - PCV) [facility] Start: 1996 Prostate specific antigen measurement PROSTATE CANCER SCREENING DISCUSSION [facility] Start: 1996 SHINGRIX VACCINE (1 of 2) SHINGRIX VACCINE (1 of 2) [facility] Start: 1996 Zoster vaccine hzv live for subcutaneous use ZOSTER (SHINGLES) VACCINE (1 of 2) [facility] Start: 06-14-1991 COLOGUARD (FIT-DNA) COLOGUARD (FIT-DNA) [facility] Start: 06-14-1991 Colonoscopy COLONOSCOPY [facility] Start: 06-14-1991 COLORECTAL CANCER SCREENING COLORECTAL CANCER SCREENING [facility] Start: 06-14-[address] COLONOGRAPHY [facility] Start: 06-14-1991 FECAL OCCULT BLOOD FECAL OCCULT BLOOD [facility] Start: 06-14-1991 SIGMOIDOSCOPY SIGMOIDOSCOPY [facility] Start: 1965 Third diphtheria, tetanus and acellular pertussis (DTaP) vaccination TDAP (ADULT) [facility] Start: 1965 Urine microalbumin profile DTAP,TDAP,TD (1 - Tdap) [facility] Start: 1964 HEPATITIS C SCREENING HEPATITIS C SCREENING [facility] Start: 1964 Tetanus vaccination TETANUS [facility] Start: 06-14-1951 COVID-19 VACCINE (#1) COVID-19 VACCINE (#1) [facility] Start: 1945 COVID-19 VACCINE (#1) COVID-19 VACCINE (#1) [facility] Start: 1946 Hepatitis C antibody, confirmatory test HEPATITIS C VIRUS SCREENING [facility] Bacteria identified in Blood by Culture Blood Culture [facility] Work Phone: Bacteria identified in Blood by Culture Blood Culture [facility] Bacteria identified in Urine by Culture URINE CULTURE Microbiology STAT 07/22/2021 3:01 PM EDT [facility] Bacteria identified in Urine by Culture Urine Culture [facility] Work Phone: Blood chemistry [facility] Work Phone: Blood culture [facility] Work Phone: Brain natriuretic pe ptide measurement [facility] Work Phone: End: 07-15-2021 FLUORO IMAGING FOR NEURO ENDOVASCULAR [facility] Work Phone: Comment on above: One Time for 1 Occurrences starting 05/2021 until 07/15/2021 End: 07-13-2021 Interrogation of cardiac pacemaker PACEMAKER/ICD INTERROGATION Cardiac Services Routine One Time for 1 Occurrences starting 07/13/2021 until 07/13/2021 [facility] Work Phone: Comment on above: One Time for 1 Occurrences starting 03/2021 until 07/13/2021 End: 07-23-2021 Interrogation of cardiac pacemaker PACEMAKER/ICD INTERROGATION Cardiac Services Routine One Time for 1 Occurrences starting 07/23/2021 until 07/23/2021 [facility] Comment on above: One Time for 1 Occurrences starting 07/13 until 07/23/2021 Patient Education [facility] Work Phone: Patient referral [facility] Work Phone: POCT GLUCOSE, FINGER STICK POCT GLUCOSE, FINGER STICK Point of Care Testing STAT 07/23/2021 4:43 AM EDT [facility] End: 07-12-2021 Standard ECG [facility] Comment on above: One Time for 1 Occurrences starting 06/15 until 07/12/2021 End: 07-22-2021 Standard ECG [facility] Comment on above: One Time for 1 Occurrences starting 07/13 until 07/22/2021 Immunizations Immunization Date Immunization Notes Care Provider Juan arizmendi 06-11-2006 hepatitis A vaccine, pediatric/adolescent dosage, [address] Mallory Mcpherson Work Phone: [facility] Payers Date Payer Category Payer Self-pay [id number] 2012 Unknown [id number] 2012 [place] [employer] [place] [id number] 2012 Unknown [id number] 2011 Medicare [id number] 2011 Medicare [id number] 1945 Unknown [id number] 2.16. 840.1.514118.3.579.2.594 1946 Unknown [id number] 2.16. 840.1.992468.3.579.2.594 1946 Unknown [id number] 2.16. 840.1.938913.3.579.2.594 1946 Unknown [id number] 2.16.8 40.1.825109.3.579.2.627 1946 Unknown [id number] 2.16.8 40.1.967439.3.579.2.627 1946 Unknown [id number] 2.16.8 40.1.986417.3.579.2.627 1946 Unknown [id number] 2.16.8 40.1.921366.3.579.2.627 1946 Unknown [id number] 2.16.8 40.1.722876.3.579.2.627 1946 Unknown [id number] 2.16.8 40.1.693801.3.579.2.627 Unknown [id number] 2.16.8 40.1.776506.3.579.2.462 Unknown [id number] 2.16.8 40.1.567672.3.579.2.462 Unknown [id number] 2.16.8 40.1.285430.3.579.2.462 Unknown [id number] 2.16.8 40.1.412487.3.579.2.462 Unknown [id number] 2.16.8 40.1.258384.3.579.2.462 Unknown [id number] 2.16.8 40.1.178057.3.579.2.462 Unknown [id number] 2.16.8 40.1.423864.3.579.2.462 Unknown [id number] 2.16.8 40.1.305589.3.579.2.462 Unknown [id number] 2.16.8 40.1.797652.3.579.2.462 Unknown [id number] 2.16.8 40.1.789580.3.579.2.462 Unknown [id number] 2.16.8 40.1.868328.3.579.2.462 Unknown [id number] 2.16.8 40.1.268208.3.579.2.462 Unknown [id number] 2.16.8 40.1.532663.3.579.2.462 Unknown [id number] 2.16.8 40.1.067169.3.579.2.462 Unknown [id number] 2.16.8 40.1.982056.3.579.2.462 Unknown [id number] 2.16.8 40.1.311463.3.579.2.462 Unknown [id number] 2.16.8 40.1.583884.3.579.2.462 Unknown [id number] 2.16.8 40.1.484593.3.579.2.462 Unknown [id number] 2.16.8 40.1.513181.3.579.2.462 Unknown [id number] 2.16.8 40.1.548108.3.579.2.462 Unknown [id number] 2.16.8 40.1.896585.3.579.2.462 Unknown [id number] 2.16.8 40.1.531917.3.579.2.462 Unknown [id number] 2.16.8 40.1.240859.3.579.2.462 Unknown [id number] 2.16.8 40.1.273124.3.579.2.462 Unknown [id number] 2.16.8 40.1.731443.3.579.2.462 Unknown [id number] 2.16.8 40.1.967933.3.579.2.462 Unknown [id number] 2.16.8 40.1.356688.3.579.2.462 Unknown [id number] 2.16.8 40.1.358290.3.579.2.462 Unknown [id number] 2.16.8 40.1.095138.3.579.2.462 Unknown [id number] 2.16.8 40.1.365283.3.579.2.462 Unknown [id number] 2.16.8 40.1.159540.3.579.2.462 Unknown [id number] 2.16.8 40.1.379422.3.579.2.462 Unknown [id number] 2.16.8 40.1.272412.3.579.2.462 Unknown [id number] 2.16.8 40.1.455528.3.579.2.462 Unknown [id number] 2.16.8 40.1.963318.3.579.2.462 Unknown [id number] 2.16.8 40.1.209743.3.579.2.462 Unknown [id number] 2.16.8 40.1.865539.3.579.2.462 Unknown [id number] 2.16.8 40.1.901600.3.579.2.462 Unknown [id number] 2.16.8 40.1.489447.3.579.2.462 Social History Date Type Detail Facility Start: 02-28-2019 End: 09-13-2024 Never smoked tobacco (finding) [facility] Comment on above: no smoke exposure Start: 1945 Sex Assigned At Male [facility] Start: 09-25-2020 End: 05-18-2023 Tobacco smoking status NHIS Unknown if ever smoked 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) [facility] Start: 07-16-2021 Alcohol intake [facility] Start: 1945 Sex Assigned At Not on file [facility] Start: 07-12-2021 End: 07-22-2021 Exposure to SARS-CoV-2 (event) Not sure [facility] Medical Equipment Procedure Code Equipment Code Equipment Origin al Text Equipment Identifier Dates Lead Pace Standa rd Biotronik 3 - [id number] Start: 02-18-2015 Cardiac pacemaker, device (physical object) ([id number]) Pacer [address]-T [facility] - [id number] Start: 02-18-[address]-T FDA Start: 02-18-[address]-T FDA Start: 02-18-[address]-T FDA Start: 02-18-[address]-T FDA Start: 02-18-[address]-T FDA Start: 02-18-[address]-T FDA Start: 02-18-[address]-T FDA Start: 02-18-[address]-T FDA Start: 02-18-[address]-T FDA Start: 02-18-[address]-T FDA Start: 02-18-[address]-T FDA Start: 02-18-[address]-T FDA Start: 02-18-[address]-T FDA Start: 02-18-[address]-T FDA Start: 02-18-[address]-T FDA Start: 02-18-[address]-T FDA Start: 02-18-[address]-T FDA Start: 02-18-[address]-T FDA Start: 02-18-[address]-T FDA Start: 02-18-[address]-T FDA Start: 02-18-[address]-T FDA Start: 02-18-[address]-T FDA Start: 02-18-[address]-T FDA Start: 02-18-[address]-T FDA Start: 02-18-[address]-T FDA Start: 02-18-[address]-T FDA Start: 02-18-[address]-T FDA Start: 02-18-[address]-T FDA Start: 02-18-[address]-T FDA Start: 02-18-[address]-T FDA Start: 02-18-[address]-T FDA Start: 02-18-[address]-T FDA Start: 02-18-[address]-T FDA Start: 02-18-[address]-T FDA Start: 02-18-[address]-T FDA Start: 02-18-[address]-T FDA Start: 02-18-[address]-T FDA Start: 02-18-[address]-T FDA Start: 02-18-[address]-T FDA Start: 02-18-[address]-T FDA Start: 02-18-[address]-T FDA Start: 02-18-[address]-T FDA Start: 02-18-[address]-T FDA Start: 02-18-[address]-T FDA Start: 02-18-[address]-T FDA Start: 02-18-[address]-T FDA Start: 02-18-[address]-T FDA Start: 02-18-[address]-T FDA Start: 02-18-2015 Goals Date Patient Goal Desired Activity /State Comment on above: Formatting of this n ote might be different from the original. 1.) 04/08/2016 Ignacio will be edu on bladder mgmt equipment, strategies to promote independence / decrease family burden, and prevent UTI's. He will indicate a meaningful change on the SF Bladder Questionnaire. 2.) 04/08/2016 Ignacio will participate in task analysis of bowel routine to promote regular and dependable results to promote healthy living with SCI. 3.) 04/08/2016 Ignacio will perform UE home exercise program 2 days/week or more to preserve jt integrity for MRADL's and healthy living with SCI. 4.) 04/08/2016 Ignacio will attend one or more community recreational activities to promote peer support and healthy living and show a meaningful detectable change on the Community Integration Questionnaire. He will identify a peer mentor to promote problem solving and healthy living with SCI. Comment on above: Formatting of this n ote might be different from the original. It is estimated that treatment will be provided ~every 3 weeks for 6 months and will focus on the following goals: 1. Elucidate valued activities. 2. Increase engagement in valued activity (e.g., gardening, woodworking) through coordinated care and possible use of assistive technology. 3.. Resume social participation. 4. Address family dynamics that reduce opportunities for participation outside the home (as is possible). Functional Status Date Assessment Result Facility 05-01-2024 Functional status Chair [facility] Work Phone: 04-30-2024 Functional status Wheelchair;Lift Assist [facility] Work Phone: 08-28-2022 Functional status Ambulates [facility] Work Phone: 09-19-2021 Functional status Ambulates [facility] Work Phone: 09-11-2021 Functional status Chair [facility] Work Phone: 09-10-2021 Functional status Chair [facility] Work Phone: 09-07-2021 Functional status Ambulates [facility] Work Phone: 08-17-2021 Functional status Chair [facility] Work Phone: 07-22-2021 Functional status Chair [facility] Work Phone: Mental Status Date Assessment Result Facility 05-01-2024 Cognitive function Voice/Name [facility] Work Phone: 04-30-2024 Cognitive function Appropriate;Gabriel kingsley [facility] Work Phone: 08-28-2022 Cognitive function Voice/Name [facility] Work Phone: 09-19-2021 Cognitive function Voice/Name [facility] Work Phone: 09-15-2021 Cognitive function Appropriate;[facility] Work Phone: 09-10-2021 Cognitive function Voice/Name [facility] Work Phone: 09-08-2021 Cognitive function Appropriate;[facility] Work Phone: 09-07-2021 Cognitive function Level Of Cons ciousness Awake;Alert [facility] Work Phone: 09-06-2021 Cognitive function Voice/Name [facility] Work Phone: 09-05-2021 Cognitive function Appropriate;[facility] Work Phone: 08-17-2021 Cognitive function Voice/Name [facility] Work Phone: 07-22-2021 Cognitive function Awake [facility] Work Phone: 07-21-2021 Cognitive function Voice/Name [facility] Work Phone: 07-12-2021 Cognitive function Voice/Name [facility] Work Phone: Clinical Notes 07-12-2021 to 08-16-2024 Note Date & Type Note Facility 08-16-2024 Procedure note [facility] 08-08-2024 Evaluation note Diagnosis Onset Date Resolution Aortic valve stenosis acute August 08, 2024 2:22pm Atrial fibrillation acute July 142024 2:22pm Bilateral lower extremity edema acute August 08, 2024 2 :22pm History of permanent cardiac pacemaker placement chronic August 08, 2024 2 :22pm CVA (cerebral vascular accident) resolved August 08, 2024 2 :22pm Essential hypertension deleted Antonio patel 2024 2:22pm History of permanent cardiac pacemaker placement chronic August 16, 2024 2 :59pm Sick sinus syndrome chronic August 16, 2024 2:59pm [facility] Work Phone: 1(971) 774-810102-13-2025 [facility]01-13-2025 [facility]-13-2025 Evaluation note* Diagnosis Onset Date Resolution Status Admit Date Atrial fibrillation acute 2024 2:37pm Benign prostate hyperplasia acute March 27, 2024 2:37pm Debility acute March 27, 2024 2:37pm Depression acute March 27, 2024 2:37pm Essential (primary) hypertension acute March 27 2:37pm Neurogenic bladder acute 2024 2:37pm Recurrent UTI acute March 2:37pm Spinal cord injury acute 2024 2:37pm Vitamin D deficiency acute 2024 2:37pm 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 March 27 2:37pm Acute encephalopathy resolved 2024 2:37pm Bacteremia resolved March 27, 2024 2:37pm CVA (cerebral vascular accident) resolved March 27 2:37pm Hypokalemia resolved March 27, 2024 2:37pm Aortic valve stenosis acute August 08, 2024 2:22pm Atrial fibrillation acute July 142024 2:22pm Bilateral lower extremity edema acut e August 08, 2024 2:22pm History of permanent cardiac pacemaker placement chronic August 08 2:22pm CVA (cerebral vascular accident) resolved August 08, 2024 2 :22pm Essential hypertension deleted 2024 2:22pm History of permanent cardiac pacemaker placement chronic August 16 2:59pm Sick sinus syndrome chronic August 16, 2024 2:59pm [facility] Work Phone: 1(800) 684-364301-13-2025 [facility]01-09-2025 [facility]12-16-2024 [facility] 02-28-2024 [facility]-05-2024 [facility]-28-2024 Note. MICRO - Microbiology PROCEDURE: Urine Culture [*1] SOURCE: Urine, Clean Catch BODY SITE: COLLECTED DATE/TIME: 02/09/2024 15:12 EST RECEIVED DATE/TIME: 02/09/2024 18:45 EST START DATE/TIME: 02/09/2024 18:46 EST FREE TEXT SOURCE: FINAL REPORTS Final Report [] Verified Date/Time/Personnel: 02/10/2024 14:30 EST >100,000 cfu/ml Multiple bacterial morphotypes present. Probable Contamination. Suggest recollection if clinically indicated. Performing Locations *1: This test was performed at: [address], [address] , [facility]09-15-2024 Note. MICRO - Microbiology PROCEDURE: Culture Wound Aerobic with Gram Stain [*1] SOURCE: Laceration BODY SITE: Leg R COLLECTED DATE/TIME: 11/25/2023 15:17 EDT RECEIVED DATE/TIME: 11/26/2023 17:03 EDT START DATE/TIME: 11/26/2023 17:04 EDT FREE TEXT SOURCE: FINAL REPORTS Final Report [] Verified Date/Time/Personnel: 11/28/2023 11:02 EDT Few Normal skin aditya present. Sensitivity testing not indicated. PRELIMINARY REPORTS Preliminary Report [] Verified Date/Time/Personnel: 11/27/2023 11:55 EDT Few Normal skin aditya present. Sensitivity testing not indicated. STAINS GS [] Verified Date/Time/Personnel: 11/26/2023 17:26 EDT No organisms seen. Performing Locations *1: This test was performed at: [address], [address] , [facility]09-15-2024 Note. MICRO - Microbiology PROCEDURE: Urine Culture [*1] SOURCE: Urine, Clean Catch BODY SITE: COLLECTED DATE/TIME: 11/25/2023 15:17 EDT RECEIVED DATE/TIME: 11/26/2023 17:12 EDT START DATE/TIME: 11/26/2023 17:13 EDT FREE TEXT SOURCE: FINAL REPORTS Final Report [] Verified Date/Time/Personnel: 11/28/2023 08:32 EDT >100,000 cfu/ml Gram Negative Rods Unable to further ID PRELIMINARY REPORTS Preliminary Report [] Verified Date/Time/Personnel: 11/27/2023 12:22 EDT >100,000 cfu/ml Gram Negative Rods Final identification and DEV to follow. SUSCEPTIBILITY RESULTS Gram Negative Rods Antibiotic DEV Dilut DEV Inter Amoxicillin/ <=8/4 Susceptible Clavulanate Ampicillin >16 Resistant Ampicillin/ <=4/2 Susceptible Sulbactam Aztreonam <=4 Susceptible Cefazolin <=2 Susceptible Cefepime <=2 Susceptible Cefuroxime <=4 Susceptible Ciprofloxacin <=0.25 Susceptible Ertapenem <=0.5 Susceptible Gentamicin <=2 Susceptible ID Panel Not Not Applicable Applicable Levofloxacin <=0.5 Susceptible Meropenem <=1 Susceptible Minocycline <=4 Susceptible Nitrofurantoin <=32 Susceptible Piperacillin/ <=8 Susceptible Tazobactam Tobramycin <=2 Susceptible Trimethoprim/ <=0.5/9.5 Susceptible Sulfa Performing Locations *1: This test was performed at: [address], [address] , [facility]07-18-2024 Note. MICRO - Microbiology PROCEDURE: Urine Culture [*1] SOURCE: Urine, Clean Catch BODY SITE: COLLECTED DATE/TIME: 09/28/2023 16:43 EDT RECEIVED DATE/TIME: 09/28/2023 18:42 EDT START DATE/TIME: 09/28/2023 18:42 EDT FREE TEXT SOURCE: FINAL REPORTS Final Report [] Verified Date/Time/Personnel: 09/30/2023 09:00 EDT 50,000 - 100,000 cfu/ml Pseudomonas aeruginosa PRELIMINARY REPORTS Preliminary Report [] Verified Date/Time/Personnel: 09/29/2023 12:43 EDT 50,000 - 100,000 cfu/ml Pseudomonas aeruginosa DEV to follow SUSCEPTIBILITY RESULTS Pseudomonas aeruginosa Antibiotic DEV Dilut DEV Inter Aztreonam >16 Resistant Cefepime 8 Susceptible Ceftazidime 8 Susceptible ID Panel Not Not Applicable Applicable Imipenem <=1 Susceptible Levofloxacin 2 Intermediate Meropenem <=1 Susceptible Piperacillin/ 16 Susceptible Tazobactam Tobramycin <=2 Susceptible Performing Locations *1: This test was performed at: [address], [address]- , [facility] ([place])09-08-2023 Note ORIGINAL EXAMINATION: XRAY VIEWS OF THE LEFT CLAVICLE TECHNIQUE: Two views of the left clavicle were performed. COMPARISON: None. HISTORY: ORDERING SYSTEM PROVIDED HISTORY: Reason for Exam: Fall on 09/03/2023 resulting in injury to the left clavicle FINDINGS: A nondisplaced fracture the distal left clavicle approximately 2 cm proximal to the acromioclavicular joint is seen. The acromioclavicular, coracoclavicular and glenohumeral joints are preserved. Undersurface enthesopathy changes of the distal clavicle extend into the subacromial space. Cervical through upper thoracic posterior instrumentation with bilateral transpedicular screws and vertical stabilization rods is noted. An incompletely imaged left subclavian pacemaker/ICD is seen. IMPRESSION: Nondisplaced fracture of the distal left clavicle approximately 2 cm proximal to the acromioclavicular joint. Interpreted by: Mallory Lomax MD Preliminary Report By: Mallory Lomax MD Electronically signed By Mallory Lomax MD Dictated Date: 09/08/2023 11:58:39 AM Prelim Date: 09/08/2023 12:00:24 PM Sign Date: 09/08/2023 12:00:24 PM Ordering Provider: [facility]04-28-2024 Note. MICRO - Microbiology PROCEDURE: Urine Culture [*1] SOURCE: Urine, Clean Catch BODY SITE: COLLECTED DATE/TIME: 07/09/2023 11:21 EDT RECEIVED DATE/TIME: 07/09/2023 16:09 EDT START DATE/TIME: 07/09/2023 16:09 EDT FREE TEXT SOURCE: FINAL REPORTS Final Report [] Verified Date/Time/Personnel: 07/11/2023 07:18 EDT 10,000 - 50,000 cfu/ml Multiple bacterial morphotypes present. Probable Contamination. Suggest recollection if clinically indicated. PRELIMINARY REPORTS Preliminary Report [] Verified Date/Time/Personnel: 07/10/2023 08:58 EDT Culture results pending. Performing Locations *1: This test was performed at: [facility], [address] [place] [address], [id number] , [facility] ([place])03-28-2023 Note. MICRO - Microbiology PROCEDURE: Urine Culture [*1] SOURCE: Urine, Straight BODY SITE: Catherized COLLECTED DATE/TIME: 03/25/2023 10:08 EST RECEIVED DATE/TIME: 03/25/2023 17:01 EST START DATE/TIME: 03/25/2023 17:01 EST FREE TEXT SOURCE: FINAL REPORTS Final Report [] Verified Date/Time/Personnel: 03/28/2023 08:22 EST >100,000 cfu/ml Citrobacter koseri >100,000 cfu/ml Group B Beta Hemolytic Strep (Strep agalactiae) Sensitivity testing is not recommended for one of the following reasons: 1. Established susceptibility patterns are available or 2. Interpretative criteria are not available. PRELIMINARY REPORTS Preliminary Report [] Verified Date/Time/Personnel: 03/27/2023 09:25 EST >100,000 cfu/ml Citrobacter koseri DEV to follow >100,000 cfu/ml Group B Beta Hemolytic Strep (Strep agalactiae) Sensitivity testing is not recommended for one of the following reasons: 1. Established susceptibility patterns are available or 2. Interpretative criteria are not available. Preliminary Report [] Verified Date/Time/Personnel: 03/26/2023 08:25 EST Culture results pending. SUSCEPTIBILITY RESULTS Citrobacter koseri Antibiotic DEV Dilut DEV Inter Ampicillin 16 Resistant Ampicillin/ <=4/2 Susceptible Sulbactam Aztreonam <=4 Susceptible Cefazolin <=2 Susceptible Ciprofloxacin <=0.25 Susceptible Ertapenem <=0.5 Susceptible Gentamicin <=2 Susceptible ID Panel Not Not Applicable Applicable Imipenem <=1 Susceptible Levofloxacin <=0.5 Susceptible Meropenem <=1 Susceptible Minocycline <=4 Susceptible Nitrofurantoin <=32 Susceptible Piperacillin/ <=8 Susceptible Tazobactam Trimethoprim/ <=0.5/9.5 Susceptible Sulfa Performing Locations *1: This test was performed at: [facility], [address] [address], [address] , [facility] ([place])08-28-[address] Cantu [facility] August 28, 2022 12:37pm Note Date/Time August 28, 2022 11:4 3am [facility] Medical Records Department [address] [place] [address] Discharge Summary 08/28/22 1141 MR#: [id number] Acct: [id number] Name: IGNACIO AQUINO Rep #:[id number] : 1945 77 From: Marc Cantu MD PCP: Dr. Mallory Mcpherson, DO Status:ADM IN [facility] Prov[facility] Date of Admission: 08/25/22 Date of Discharge: 08/28/22 Primary Care Physician: Dr. Mallory Mcpherson, DO Reason For Visit: ACUTE CYSTITIS, ACUTE PANCREATITIS Diagnosis Discharge Diagnosis (1) UTI (urinary tract infection): Status: Acute Code(s): N39.0 - Urinary tract infection, site not specified (2) Pancreatitis: Status: Acute Code(s): K85.90 - Acute pancreatitis without necrosis or infection, unspecified Plan Patient is a 77-year-old gentleman with past medical history significant for neck trauma with subsequent paraplegia brought to the emergency department with progressive generalized weakness.? Work-up consistent with UTI UTI. 1.? UTI secondary to use of PRN straight cath as a result of chronic urinary retention in view of patient underlying paraplegia ?Admitted to regular nursing floor managed with IV fluids, broad-spectrum antibiotic therapy with meropenem. Culture sent we will follow-up on result ? 08/26/2022 patient remains on meropenem culture sent results pending WBC count remains elevated -[id number] so far positive for nonsignificant growth of Streptococcus agalactiae as well as a gram-negative irineo. ? 08/28/2022; discontinued antibiotic therapy due to no significant growth 2. Acute pancreatitis ? Etiology not clear admitted to regular nursing floor managed with antinausea medication pain medication PPI as well as clear liquids ? 08/26/2022; plan is advance patient's diet as tolerated 3.? Essential hypertension Blood pressure controlled on lisinopril and nifedipine did continue 4.? Paraplegia following traumatic neck fracture ?Supportive care patient apparently has chronic urinary retention for which patient undergoes periodic straight cath as needed 5.? BPH ?Patient is on Flomax did continue 6. Paroxysmal A-fib ? Rate controlled on systemic anticoagulation with apixaban 7.? Peripheral neuropathy ?Patient is on gabapentin did continue 8.? Depression Patient is on SSRI did continue 9.? DVT prophylaxis ? On apixaban 10. Constipation ? Treated symptomatically Time spent in the patient's overall evaluation,decision-making process, review of diagnostic data, adjustment of management, discussion with other providers, nursing nursing and ancillary staff involved in patient's care documentation, 35Minutes Medications at Discharge Home Medications lisinopril 20 mg tablet 20 mg PO DAILY blood pressure 06/24/15 ascorbic acid (vitamin C) 500 mg tablet 1,000 mg PO LUNCH supplement 08/17/21 carvedilol 12.5 mg tablet 12.5 mg PO Q12H BP 30 days #60 tabs 09/03/21 tamsulosin 0.4 mg capsule 0.4 mg PO QHS Urine retention 30 days #30 caps 09/03/21 citalopram 20 mg tablet 20 mg PO QHS depression 12/04/21 gabapentin 300 mg capsule 600 mg PO BID Nerve pain 12/04/21 nifedipine 30 mg tablet,extended release 15 mg PO DAILY BP 12/04/21 apixaban 5 mg tablet (Eliquis) 5 mg PO BID blood thinner #180 tabs 01/21/22 nitrofurantoin monohydrate/macrocrystals 100 mg capsule (Macrobid) 100 mg PO BID05/19/22 potassium chloride 10 mEq tablet,extended release(part/cryst) 10 meq PO DAILY supplement 05/19/22 Hospital Course Summary of Care Provided Minutes Spent on Discharge: 35 Weight / BMI Weight Weight: 117.163 kg Body Mass Index (BMI) 38.1 ABG / Lab / Microbiology Data Result Diagrams: 08/28/22 05:23 08/28/22 05:23 Laboratory: Laboratory Results - last 24 hr 08/28/22 05:23: WBC 14.2 H, RBC 4.29 L, Hgb 12.8 L, Hct 39.0 L, MCV 90.9, MCH 29.8, MCHC 32.8, RDW Std Deviation 49.2 H, RDW Coeff of Donna 14.8 H, Plt Count 191, MPV 10.6, Immature Gran % (Auto) 0.500, Neut % (Auto) 85.6 H, Lymph % (Auto) 5.2 L, [place] % (Auto) 7.7, Eos % (Auto) 0.8, Baso % (Auto) 0.2, Absolute Neuts (auto) 12.2 H, Absolute Lymphs (auto) 0.74 L, Nucleated RBC % 0 08/28/22 05:23: Sodium 139, Potassium 3.3 L, Chloride 106, Carbon Dioxide 24.0, Anion Gap 9, BUN 27 H, Creatinine 0.84, Estim Creat Clear Calc 74.81, Est GFR (MDRD) Af Amer 113, Est GFR (MDRD) Non-Af 94, BUN/Creatinine Ratio 32.0 H, Glucose 122 H, Calcium 9.1 Microbiology: Microbiology 08/25/22 11:05 Blood Culture (Wb) - Venous Blood Culture - Preliminary No growth in 48 hours. 08/25/22 11:10 Blood Culture (Wb) - Anticubital Right Blood Culture - Preliminary No growth in 48 hours. 08/25/22 10:10 Urine, Catheterized Urine Culture - Final Citrobacter koseri Streptococcus agalactiae (B) Radiography Diagnostic Testing: Radiology Impression Abdomen/Pelvis CT 08/27/22 11:15 IMPRESSION: 1. Limited study due to motion. 2. Mild acute pancreatitis but no visible pancreatic mass considering motion degradation. Minimal fluid in the left upper flank of the abdomen. These are unchanged. 3. 1.5 cm nonobstructing stone in the right lower renal pole is unchanged. 4. Bilateral renal cysts are unchanged. 5. No other additional findings or changes. Electronically Signed: Juaquin Arce MD at 15:06 EDT , D/C Instructions Discharge Diet: No restrictions Discharge Activity: Return to Normal Activity Call your doctor if you observe: Fever of 101 or Higher, Shortness of breath, Fainting spells and Chest pain Meaningful Use Info Meaningful Use Diagnoses (Choose all that apply): None applicable Discharge Plan Admission Admit Date/Time: 08/25/22 11:51 Attending Provider: Marc Cantu Primary Care Provider: Mallory Mcpherson Discharge Orders/Prescriptions Prescriptions: Continued citalopram 20 mg tablet 20 mg PO QHS gabapentin 300 mg capsule 600 mg PO BID nifedipine 30 mg tablet extended release 15 mg PO DAILY potassium chloride 10 mEq tablet,ER particles/crystals 10 meq PO DAILY nitrofurantoin monohyd/m-cryst [Macrobid] 100 mg capsule 100 mg PO BID Rx Instructions: must administer with a meal/food lisinopril 20 MG tablet 20 mg PO DAILY Label Comments: BLOOD PRESSURE ascorbic acid (vitamin C) 500 mg tablet 1,000 mg PO LUNCH carvedilol 12.5 mg Tablet 12.5 mg PO Q12H 30 Days Qty: 60 0RF tamsulosin 0.4 mg Capsule 0.4 mg PO QHS 30 Days Qty: 30 0RF Eliquis 5 mg tablet 5 mg PO BID Qty: 180 4RF Referrals / Follow Up: Mallory Mcpherson DO [Primary Care Provider] - 08/31/22 1:00 pm (Follow up with Dr. Mallory Mcpherson on Wednesday, 1:00pm. Bring Discharge papers to visit.) Disposition Disposition (needs filled in before D/C Order can be placed): Home Health Service Charges/Coding Visit Charges Inpatient E&M: 79110 Disch Hosp >30min 08/28/22 1237 <Electronically signed by Marc Cantu MD> Cosigner Signature (if applicable): CC: Dr. Marc Cantu MD; Dr. Mallory Mcpherson DO~ Signed [facility] Work Phone: [phone]) 175-400806-16-[address] Cantu [facility] August 28, 2022 11:38am Note Date/Time August 28, 2022 7:37 am [facility] Medical Records Department [address] [place] [id number] Progress Note - Hospitalist 08/28/22 0736 MR#: [id number] Acct: [id number] Name: KENIAIGNACIO Rep #:[id number] : 1945 77 From: Marc Cantu MD PCP: Dr. Mallory Mcpherson DO Status:ADM IN Location: [place] [id number] Reason for Visit Reason for Visit: Diagnoses Acute pancreatitis without necrosis or infection, unspecified (08/25/22) Urinary tract infection, site not specified (08/25/22) Subjective Subjective Seen admitted some symptomatic relief regarding his abdominal bloating. [facility] Objective Data Objective Data Vital Signs: Vital Signs Temp Pulse Resp BP Pulse Ox O2 Del Method 98.1 F 62 20 H 128/69 H 95 Room Air 08/28/22 04:48 08/28/22 04:48 08/28/22 04:48 08/28/22 04:48 08/28/22 07:36 08/28/22 07:36 Oxygen Delivery Method Room Air Weight: 117.163 kg Body Mass Index (BMI) 38.1 Intake & Output: Intake and Output for Last 24 Hours 08/26/22 08/27/22 08/28/22 23:59 23:59 23:59 Intake Total 3255 / 3255 1140 / 1250 230 / 230 Output Total 2200 / 2200 1675 / 1825 500 / 500 Balance 1055 / 1055 -535 / -575 -270 / -270 Lab / Micro Data Result Diagrams: 08/28/22 05:23 08/28/22 05:23 Labs: Laboratory Results - last 24 hr 08/27/22 05:59: Lipase 72 08/28/22 05:23: WBC 14.2 H, RBC 4.29 L, Hgb 12.8 L, Hct 39.0 L, MCV 90.9, MCH 29.8, MCHC 32.8, RDW Std Deviation 49.2 H, RDW Coeff of Donna 14.8 H, Plt Count 191, MPV 10.6, Immature Gran % (Auto) 0.500, Neut % (Auto) 85.6 H, Lymph % (Auto) 5.2 L, [place] % (Auto) 7.7, Eos % (Auto) 0.8, Baso % (Auto) 0.2, Absolute Neuts (auto) 12.2 H, Absolute Lymphs (auto) 0.74 L, Nucleated RBC % 0 08/28/22 05:23: Sodium 139, Potassium 3.3 L, Chloride 106, Carbon Dioxide 24.0, Anion Gap 9, BUN 27 H, Creatinine 0.84, Estim Creat Clear Calc 74.81, Est GFR (MDRD) Af Amer 113, Est GFR (MDRD) Non-Af 94, BUN/Creatinine Ratio 32.0 H, Glucose 122 H, Calcium 9.1 Micro: Microbiology 08/25/22 11:05 Blood Culture (Wb) - Venous Blood Culture - Preliminary No growth in 48 hours. 08/25/22 11:10 Blood Culture (Wb) - Anticubital Right Blood Culture - Preliminary No growth in 48 hours. 08/25/22 10:10 Urine, Catheterized Urine Culture - Final Citrobacter koseri Streptococcus agalactiae (B) Radiography Diagnostic Testing: Radiology Impression Abdomen/Pelvis CT 08/27/22 11:15 IMPRESSION: 1. Limited study due to motion. 2. Mild acute pancreatitis but no visible pancreatic mass considering motion degradation. Minimal fluid in the left upper flank of the abdomen. These are unchanged. 3. 1.5 cm nonobstructing stone in the right lower renal pole is unchanged. 4. Bilateral renal cysts are unchanged. 5. No other additional findings or changes. Electronically Signed: Juaquin Arce MD at 15:06 EDT , Physical Exam Narrative GENERAL: cooperative HEENT: Atraumatic; normocephalic EYES; Anicteric, Normal Conjunctiva NECK; supple, normal thyroid, RESPIRATORY: Diminished to auscultation CARDIOVASCULAR: Regular S1 S2, GI: normoactive bowel sounds, distended abdomen : No Renal angle tenderness; EXTREMITIES: No edema, no clubbing, MUSCULOSKELETAL: no muscle wasting NEURO: Awake; no lateralizing signs. SKIN: No Rash PSYCH; Flat affect Assessment & Plan Assessment/Plan (1) UTI (urinary tract infection): (2) Pancreatitis: PLAN: Plan Patient is a 77-year-old gentleman with past medical history significant for neck trauma with subsequent paraplegia brought to the emergency department with progressive generalized weakness.? Work-up consistent with UTI UTI. 1.? UTI secondary to use of PRN straight cath as a result of chronic urinary retention in view of patient underlying paraplegia ?Admitted to regular nursing floor managed with IV fluids, broad-spectrum antibiotic therapy with meropenem. Culture sent we will follow-up on result ? 08/26/2022 patient remains on meropenem culture sent results pending WBC count remains elevated -[id number] so far positive for nonsignificant growth of Streptococcus agalactiae as well as a gram-negative irineo. 2. Acute pancreatitis ? Etiology not clear admitted to regular nursing floor managed with antinausea medication pain medication PPI as well as clear liquids ? 08/26/2022; plan is advance patient's diet as tolerated 3.? Essential hypertension Blood pressure controlled on lisinopril and nifedipine did continue 4.? Paraplegia following traumatic neck fracture ?Supportive care patient apparently has chronic urinary retention for which patient undergoes periodic straight cath as needed 5.? BPH ?Patient is on Flomax did continue 6. Paroxysmal A-fib ? Rate controlled on systemic anticoagulation with apixaban 7.? Peripheral neuropathy ?Patient is on gabapentin did continue 8.? Depression Patient is on SSRI did continue 9.? DVT prophylaxis ? On apixaban 10. Constipation ? Treated symptomatically Time spent in the patient's overall evaluation,decision-making process, review of diagnostic data, adjustment of management, discussion with other providers, nursing nursing and ancillary staff involved in patient's care documentation, 35Minutes Charges/Coding Visit Charges Inpatient E&M: 66023 Subs Hosp L2 08/28/22 1138 <Electronically signed by Marc Cantu MD> Cosigner Signature (if applicable): CC: ~ Signed [facility] Work Phone: 1(138) 541-607506-15-[address] Cantu [facility] August 27, 2022 8:13am Note Date/Time August 27, 2022 8:13 am [facility] Medical Records Department [address] [place] [id number] Progress Note - Hospitalist 08/27/22 0811 MR#: [id number] Acct: [id number] Name: IGNACIO AQUINO Rep #:[id number] : 1945 77 From: Marc Cantu MD PCP: Dr. Mallory Mcpherson, DO Status:ADM IN Location: [place] [address] Reason for Visit Reason for Visit: Diagnoses Acute pancreatitis without necrosis or infection, unspecified (08/25/22) Urinary tract infection, site not specified (08/25/22) Subjective Subjective Same much more awake and interactive compared to previous days. Cultures so farpositive for nonsignificant growth of Streptococcus agalactiae as well as a gram-negative irineo. Patient complains of being constipated. Plan is to treat symptomatically. His diet is also being advanced as tolerated Objective Data Objective Data Vital Signs: Vital Signs Temp Pulse Resp BP Pulse Ox O2 Del Method 97.8 F 64 18 161/85 H 94 Room Air 08/27/22 05:19 08/27/22 05:19 08/27/22 05:19 08/27/22 05:19 08/27/22 07:49 08/27/22 07:49 Oxygen Delivery Method Room Air Weight: 117.163 kg Body Mass Index (BMI) 38.1 Intake & Output: Intake and Output for Last 24 Hours 08/25/22 08/26/22 08/27/22 23:59 23:59 23:59 Intake Total 2120 / 2220 3255 / 3255 320 / 320 Output Total 650 / 1050 2200 / 2200 450 / 450 Balance 1470 / 1170 1055 / 1055 -130 / -130 Lab / Micro Data Result Diagrams: 08/27/22 05:59 08/27/22 05:59 Labs: Laboratory Results - last 24 hr 08/27/22 05:59: WBC 17.8 H, RBC 4.22 L, Hgb 12.9 L, Hct 38.2 L, MCV 90.5, MCH 30.6, MCHC 33.8 D, RDW Std Deviation 50.2 H, RDW Coeff of Donna 15.0 H, Plt [id number], MPV 10.2, Immature Gran % (Auto) 0.800, Neut % (Auto) 87.5 H, Lymph % (Auto) 5.3 L, [place] % (Auto) 6.1, Eos % (Auto) 0.1, Baso % (Auto) 0.2, Absolute Neuts (auto) 15.6 H, Absolute Lymphs (auto) 0.95, Nucleated RBC % 0 08/27/22 05:59: Sodium 138, Potassium 3.5, Chloride 109 H, Carbon Dioxide 22.0, Anion Gap 7, BUN 20 H, Creatinine 0.82, Estim Creat Clear Calc 76.64, Est GFR (MDRD) Af Amer 117, Est GFR (MDRD) Non-Af 97, BUN/Creatinine Ratio 24.3 H, Glucose 120 H, Calcium 9.1 Micro: Microbiology 08/25/22 10:10 Urine, Catheterized Urine Culture - Preliminary Gram negative irineo Streptococcus agalactiae (B) Physical Exam Narrative GENERAL: cooperative HEENT: Atraumatic; normocephalic EYES; Anicteric, Normal Conjunctiva NECK; supple, normal thyroid, RESPIRATORY: Diminished to auscultation CARDIOVASCULAR: Regular S1 S2, GI: normoactive bowel sounds, distended abdomen : No Renal angle tenderness; EXTREMITIES: No edema, no clubbing, MUSCULOSKELETAL: no muscle wasting NEURO: Awake; no lateralizing signs. SKIN: No Rash PSYCH; Flat affect Assessment & Plan Assessment/Plan (1) UTI (urinary tract infection): (2) Pancreatitis: PLAN: Plan Patient is a 77-year-old gentleman with past medical history significant for neck trauma with subsequent paraplegia brought to the emergency department with progressive generalized weakness.? Work-up consistent with UTI UTI. 1.? UTI secondary to use of PRN straight cath as a result of chronic urinary retention in view of patient underlying paraplegia ?Admitted to regular nursing floor managed with IV fluids, broad-spectrum antibiotic therapy with meropenem. Culture sent we will follow-up on result ? 08/26/2022 patient remains on meropenem culture sent results pending WBC count remains elevated -[id number] so far positive for nonsignificant growth of Streptococcus agalactiae as well as a gram-negative irineo. 2. Acute pancreatitis ? Etiology not clear admitted to regular nursing floor managed with antinausea medication pain medication PPI as well as clear liquids ? 08/26/2022; plan is advance patient's diet as tolerated 3.? Essential hypertension Blood pressure controlled on lisinopril and nifedipine did continue 4.? Paraplegia following traumatic neck fracture ?Supportive care patient apparently has chronic urinary retention for which patient undergoes periodic straight cath as needed 5.? BPH ?Patient is on Flomax did continue 6. Paroxysmal A-fib ? Rate controlled on systemic anticoagulation with apixaban 7.? Peripheral neuropathy ?Patient is on gabapentin did continue 8.? Depression Patient is on SSRI did continue 9.? DVT prophylaxis ? On apixaban 10. Constipation ? Treated symptomatically Time spent in the patient's overall evaluation,decision-making process, review of diagnostic data, adjustment of management, discussion with other providers, nursing nursing and ancillary staff involved in patient's care documentation, 35Minutes Charges/Coding Visit Charges Inpatient E&M: 20195 Subs Hosp L2 08/27/22 0813 <Electronically signed by Marc Cantu MD> Cosigner Signature (if applicable): CC: ~ Signed [facility] Work Phone: [phone]) 183-706206-14-[address] Cantu [facility] August 26, 2022 8:46am Note Date/Time August 26, 2022 7:30 am [facility] Medical Records Department [address] [place] [address] Progress Note - Hospitalist 08/26/22728 MR#: [id number] Acct: [id number] Name: IGNACIO AQUINO Rep #:[id number] : 1945 77 From: Marc Cantu MD PCP: Dr. Mallory Mcpherson, DO Status:ADM IN Location: [place] [address]-1 Reason for Visit Reason for Visit: Diagnoses Acute pancreatitis without necrosis or infection, unspecified (08/25/22) Urinary tract infection, site not specified (08/25/22) Subjective Subjective Patient is a 77-year-old gentleman with past medical history significant for neck trauma with subsequent paraplegia brought to the emergency department with progressive generalized weakness.? Work-up consistent with UTI Objective Data Objective Data Vital Signs: Vital Signs Temp Pulse Resp BP Pulse Ox O2 Del Method 98.7 F 67 22 H 161/85 H 94 Room Air 08/26/22 02:11 08/26/22 03:51 08/26/22 02:11 08/26/22 03:51 08/26/22 02:11 08/26/22 03:00 Oxygen Delivery Method Room Air Weight: 117.163 kg Body Mass Index (BMI) 38.1 Intake & Output: Intake and Output for Last 24 Hours 08/24/22 08/25/22 08/26/22 23:59 23:59 23:59 Intake Total 2120 / 2220 1355 / 1355 Output Total 650 / 1050 1000 / 1000 Balance 1470 / 1170 355 / 355 Lab / Micro Data Result Diagrams: 08/26/22 06:55 08/26/22 06:55 Labs: Laboratory Results - last 24 hr 08/25/22 09:20: WBC 15.7 H, RBC 4.85, Hgb 14.5, Hct 44.6, MCV 92.0, MCH 29.9, MCHC 32.5, RDW Std Deviation 51.0 H, RDW Coeff of Donna 15.2 H, Plt Count 207, MPV10.8, Immature Gran % (Auto) 0.600, Neut % (Auto) 86.3 H, Lymph % (Auto) 5.4 L, Lamoure % (Auto) 7.3, Eos % (Auto) 0.3, Baso % (Auto) 0.1, Absolute Neuts (auto) 13.6 H, Absolute Lymphs (auto) 0.85, Nucleated RBC % 0 08/25/22 09:20: Sodium 140, Potassium 3.6, Chloride 108 H, Carbon Dioxide 24.0, Anion Gap 8, BUN 27 H, Creatinine 1.61 H, Estim Creat Clear Calc 39.03, Est GFR (MDRD) Af Amer 54 L, Est GFR (MDRD) Non-Af 45 L, BUN/Creatinine Ratio 16.8, Glucose 115 H, Calcium 9.2, Total Bilirubin 2.70 H, AST 81 H, ALT 216 H, Alkaline Phosphatase 134 H, Troponin I High Sens 11, Total Protein 7.8, Albumin 3.8, Globulin 4.0, Albumin/Globulin Ratio 1.0, Lipase > 250 H 08/25/22 10:10: Urine Color Yellow, Urine Clarity Cloudy, Urine pH 6.0, Ur Specific [place] 1.020, Urine Protein 30 H, Urine Glucose (UA) Normal, Urine Ketones 5 H, Urine Occult Blood 150 H, Urine Nitrite Positive H, Urine Bilirubin1 H, Urine Urobilinogen 1 H, Ur Leukocyte Esterase 500 H, Urine RBC 0-5 SEEN, Urine WBC >100 SEEN, Ur Squamous Epith Cells 0-5 SEEN, Urine Bacteria 1+, Urine Mucus 0 SEEN 08/25/22 11:10: Lactic Acid 1.0 08/26/22 06:55: WBC 16.0 H, RBC 4.04 L, Hgb 12.0 L, Hct 37.4 L, MCV 92.6, MCH 29.7, MCHC 32.1, RDW Std Deviation 52.3 H, RDW Coeff of Donna 15.3 H, Plt Count 158, MPV 10.4, Immature Gran % (Auto) 0.700, Neut % (Auto) 83.3 H, Lymph % (Auto) 7.4 L, [place] % (Auto) 8.0, Eos % (Auto) 0.4, Baso % (Auto) 0.2, Absolute Neuts (auto) 13.3 H, Absolute Lymphs (auto) 1.18, Nucleated RBC % 0 Radiography Diagnostic Testing: Radiology Impression Abdomen/Pelvis CT 08/25/22 09:30 IMPRESSION: Minimal pleural effusions with increased markings at the lung bases suggestive of atelectasis. Findings suggestive of mild degree of pancreatitis with increased markings in the surrounding peripancreatic fat. Stable bilateral renal cysts. Nonobstructive calculus in the right kidney. Prostatic enlargement with indentation at the bladder base. Diffuse bladder wall thickening with trabeculation. Electronically Signed: Umang Guerra MD at 11:12 EDT , Chest X-Ray 08/25/22 10:48 IMPRESSION: Moderate cardiomegaly with mild increased markings at the right lung base. Electronically Signed: Umang Guerra MD at 11:13 EDT , Physical Exam Narrative GENERAL: cooperative HEENT: Atraumatic; normocephalic EYES; Anicteric, Normal Conjunctiva NECK; supple, normal thyroid, RESPIRATORY: Diminished to auscultation CARDIOVASCULAR: Regular S1 S2, GI: normoactive bowel sounds, : No Renal angle tenderness; EXTREMITIES: No edema, no clubbing, MUSCULOSKELETAL: no muscle wasting NEURO: Awake; no lateralizing signs. SKIN: No Rash PSYCH; Flat affect Assessment & Plan Assessment/Plan (1) UTI (urinary tract infection): (2) Pancreatitis: PLAN: Plan Patient is a 77-year-old gentleman with past medical history significant for neck trauma with subsequent paraplegia brought to the emergency department with progressive generalized weakness.? Work-up consistent with UTI UTI. 1.? UTI secondary to use of PRN straight cath as a result of chronic urinary retention in view of patient underlying paraplegia ?Admitted to regular nursing floor managed with IV fluids, broad-spectrum antibiotic therapy with meropenem. Culture sent we will follow-up on result ? 08/26/2022 patient remains on meropenem culture sent results pending WBC count remains elevated 2. Acute pancreatitis ? Etiology not clear admitted to regular nursing floor managed with antinausea medication pain medication PPI as well as clear liquids ? 08/26/2022; plan is advance patient's diet as tolerated 3.? Essential hypertension Blood pressure controlled on lisinopril and nifedipine did continue 4.? Paraplegia following traumatic neck fracture ?Supportive care patient apparently has chronic urinary retention for which patient undergoes periodic straight cath as needed 5.? BPH ?Patient is on Flomax did continue 6. Paroxysmal A-fib ? Rate controlled on systemic anticoagulation with apixaban 7.? Peripheral neuropathy ?Patient is on gabapentin did continue 8.? Depression Patient is on SSRI did continue 9.? DVT prophylaxis ? On apixaban Time spent in the patient's overall evaluation,decision-making process, review of diagnostic data, adjustment of management, discussion with other providers, nursing nursing and ancillary staff involved in patient's care documentation, 50Minutes Charges/Coding Visit Charges Inpatient E&M: 68332 Subs Hosp L3 08/26/22 0846 <Electronically signed by Marc Cantu MD> Cosigner Signature (if applicable): CC: ~ Signed [facility] Work Phone: [phone]) 719-596606-13-[address] Zavala [facility] August 25, 2022 3:18pm Note Date/Time August 25, 2022 9:32 am [facility] Medical Records Department [address] [place] [address] Emergency Department Summary 08/25/22 MR#: [id number] Acct: [id number] Name: IGNACIO AQUINO Rep #:[id number] : 1945 77 From: Juaquin Zavala MD PCP: Dr. Mallory Mcpherson, DO Status:ADM IN [id number] History of Present Illness Chief Complaint: Weakness Narrative Narrative: 77-year-old male presents via EMS with multiple somatic complaints. History andphysical is mildly limited secondary to an expressive aphasia from a cerebral vascular accident. He states that his urine has been dark for over a week and he thinks he has a urinary tract infection. He has had previous urinary tract infections in the past. He denies any fevers or chills, but it was reported that he had nausea and vomiting, and he states that his abdomen has been bloated. 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 Neurogenic bladder Neurogenic bowel Neuropathy 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.9) Paraplegia Premature ventricular contractions Prostatic hypertrophy Sick sinus syndrome Sick sinus syndrome Spinal cord injury Subluxation of C6-C7 cervical vertebrae TIA (transient ischemic attack) Home Medications lisinopril 20 mg tablet 20 mg PO DAILY blood pressure 06/24/15 [History Last Taken 03/28/19] ascorbic acid (vitamin C) 500 mg tablet 1,000 mg PO LUNCH supplement 08/17/21 [History Last Taken Unknown] carvedilol 12.5 mg tablet 12.5 mg PO Q12H BP 30 days #60 tabs 09/03/21 [Rx Last Taken Unknown] tamsulosin 0.4 mg capsule 0.4 mg PO QHS Urine retention 30 days #30 caps 09/03/21 [Rx Last Taken Unknown] citalopram 20 mg tablet 20 mg PO QHS depression 12/04/21 [History Last Taken Unknown] gabapentin 300 mg capsule 600 mg PO BID Nerve pain 12/04/21 [History Last Taken Unknown] nifedipine 30 mg tablet,extended release 15 mg PO DAILY BP 12/04/21 [History Last Taken Unknown] apixaban 5 mg tablet (Eliquis) 5 mg PO BID blood thinner #180 tabs 01/21/22 [Rx Last Taken Unknown] nitrofurantoin monohydrate/macrocrystals 100 mg capsule (Macrobid) 100 mg PO BID05/19/22 [History Last Taken Unknown] potassium chloride 10 mEq tablet,extended release(part/cryst) 10 meq PO DAILY supplement 05/19/22 [History Last Taken Unknown] Allergy/AdvReac Type Severity Reaction Status Date / Time ceftriaxone Allergy Rash Verified 08/25/22 09:14 ciprofloxacin [From Cipro] Allergy Hives Verified 08/25/22 09:14 sulfamethoxazole Allergy PT UNSURE Verified 08/25/22 09:14 [From Bactrim] OF REACTION trimethoprim [From Bactrim] Allergy PT UNSURE Verified 08/25/22 09:14 OF REACTION Family History Mother Breast cancer Cancer Brain cancer Sister Diabetes Hypertension CHF (congestive heart failure) Kidney disease Sister CHF (congestive heart failure) Cardiac defibrillator in situ Other Family history of hypertension Surgical History History of neck surgery History of permanent cardiac pacemaker placement S/P cervical spinal fusion Social History household members: spouse Smoking Status: Never smoker alcohol intake: current alcohol intake frequency: holidays/special occasions only Alcohol type: wine substance use type: does not use caffeine: Yes Type: coffee Number of servings: 1 what type of physical activity do you participate in: other details: Health point frequency: 1-2 times per week duration: 45-60 minutes/day seatbelt use: always do you feel safe at home: Yes EXAM Physical Exam Const Vital Signs: 08/25/22 09:16 08/25/22 09:20 08/25/22 11:18 Temperature 98.7 F Temperature Source Temporal Pulse Rate 72 65 Respiratory Rate 24 H Respiratory Effort Short of Breath Respiratory Pattern Normal Blood Pressure 155/89 H 152/79 H Blood Pressure Mean 111 103 Pulse Ox 94 Oxygen Delivery Method Room Air MDM MDM MDM Narrative Medical decision making narrative: Suspicion is high for urinary tract infection. Given his nausea and vomiting, comprehensive work-up was pursued and CT will be obtained to rule out obstruction. I reviewed his laboratory work and he has a leukocytosis of 15.7 with normal hemoglobin of 14.5, platelet count normal at 207. Electrolyte panelreveals chloride elevated at 108 which I think is nonspecific. He does have an elevated BUN of 27 and a creatinine of 1.61. Glucose is appropriately elevated at 115 with a normal anion gap of 8. High-sensitivity troponin is normal at 11. He does have elevated AST and ALT at 81 and 216. Lipase is greater than 250 consistent with acute pancreatitis. He does have urinary tract infection. He will be administered aztreonam as he has ceftriaxone and ciprofloxacin allergy. Urine was sent for culture. Lactic acid normal at 1.0. CT of the abdomen and pelvis was reviewed, radiology report reveals slight stranding around the pancreas but no evidence of gallstones or obstruction. I am unsure as to the cause of his pancreatitis, but I do not feel that he is safe for discharge because he cannot take oral antibiotics because of the nausea and vomiting and pancreatitis. Patient was discussed with the hospitalist for admission. Disposition is admit in stable condition. History & Record Review Discussion w/independent historian: Patient and Family Additional record(s) reviewed:: Prior ED visit and Prior labs Lab Data Attestation: I reviewed the patient's lab results. Labs: Laboratory Results - last 24 hr 08/25/22 08/25/22 08/25/22 09:20 09:20 10:10 WBC 15.7 H RBC 4.85 Hgb 14.5 Hct 44.6 MCV 92.0 MCH 29.9 MCHC 32.5 RDW Std Deviation 51.0 H RDW Coeff of Donna 15.2 H Plt Count 207 MPV 10.8 Immature Gran % (Auto) 0.600 Neut % (Auto) 86.3 H Lymph % (Auto) 5.4 L [place] % (Auto) 7.3 Eos % (Auto) 0.3 Baso % (Auto) 0.1 Absolute Neuts (auto) 13.6 H Absolute Lymphs (auto) 0.85 Nucleated RBC % 0 Sodium 140 Potassium 3.6 Chloride 108 H Carbon Dioxide 24.0 Anion Gap 8 BUN 27 H Creatinine 1.61 H Estim Creat Clear Calc 39.03 Est GFR (MDRD) Af Amer 54 L Est GFR (MDRD) Non-Af 45 L BUN/Creatinine Ratio 16.8 Glucose 115 H Lactic Acid Calcium 9.2 Total Bilirubin 2.70 H AST 81 H ALT 216 H Alkaline Phosphatase 134 H Troponin I High Sens 11 Total Protein 7.8 Albumin 3.8 Globulin 4.0 Albumin/Globulin Ratio 1.0 Lipase > 250 H Urine Color Yellow Urine Clarity Cloudy Urine pH 6.0 Ur Specific [place] 1.020 Urine Protein 30 H Urine Glucose (UA) Normal Urine Ketones 5 H Urine Occult Blood 150 H Urine Nitrite Positive H Urine Bilirubin 1 H Urine Urobilinogen 1 H Ur Leukocyte Esterase 500 H Urine RBC 0-5 SEEN Urine WBC >100 SEEN Ur Squamous Epith Cells 0-5 SEEN Urine Bacteria 1+ Urine Mucus 0 SEEN 08/25/22 11:10 WBC RBC Hgb Hct MCV MCH MCHC RDW Std Deviation RDW Coeff of Donna Plt Count MPV Immature Gran % (Auto) Neut % (Auto) Lymph % (Auto) [place]ou[place] % (Auto) Eos % (Auto) Baso % (Auto) Absolute Neuts (auto) Absolute Lymphs (auto) Nucleated RBC % Sodium Potassium Chloride Carbon Dioxide Anion Gap BUN Creatinine Estim Creat Clear Calc Est GFR (MDRD) Af Amer Est GFR (MDRD) Non-Af BUN/Creatinine Ratio Glucose Lactic Acid 1.0 Calcium Total Bilirubin AST ALT Alkaline Phosphatase Troponin I High Sens Total Protein Albumin Globulin Albumin/Globulin Ratio Lipase Urine Color Urine Clarity Urine pH Ur Specific [place] Urine Protein Urine Glucose (UA) Urine Ketones Urine Occult Blood Urine Nitrite Urine Bilirubin Urine Urobilinogen Ur Leukocyte Esterase Urine RBC Urine WBC Ur Squamous Epith Cells Urine Bacteria Urine Mucus Radiography Diagnostic Testing: Clinical Impression(s) from Imaging Studies Abdomen/Pelvis CT 08/25/22 09:30 IMPRESSION: Minimal pleural effusions with increased markings at the lung bases suggestive of atelectasis. Findings suggestive of mild degree of pancreatitis with increased markings in the surrounding peripancreatic fat. Stable bilateral renal cysts. Nonobstructive calculus in the right kidney. Prostatic enlargement with indentation at the bladder base. Diffuse bladder wall thickening with trabeculation. Electronically Signed: Umang Guerra MD at 11:12 EDT , Chest X-Ray 08/25/22 10:48 IMPRESSION: Moderate cardiomegaly with mild increased markings at the right lung base. Electronically Signed: Umang Guerra MD at 11:13 EDT , Discharge Plan Dx/Rx/DC Orders Clinical Impression: UTI (urinary tract infection), Pancreatitis, Nausea & vomiting Disposition Disposition: Acute Care [facility] What to do if you have Problems For any increased pain, shortness of breath, bleeding, nausea or vomiting, chestpain, or any unexpected problems, contact your Primary Care Provider. Call [facility] ([phone]) or report to the closest Emergency Room. Call 911 if necessary. 08/25/22 1518 <Electronically signed by Juaquin Zavala MD> Cosigner Signature (if applicable): CC: Dr. Mallory Mcpherson, ~ Signed [facility] Work Phone: 1(797) 323-494206-13-2023 History and physical note Author Dr. Cantu [facility] August 25, 2022 12:23pm Note Date/Time August 25, 2022 12:2 3pm [facility] Medical Records Department [address] [place] [address] H&P Exam - Hospitalist 08/25/22 1217 MR#: [id number] Acct: [id number] Name: IGNACIO AQUINO Rep #:[id number] : 1945 77 From: Marc Cantu MD PCP: Dr. Mallory Mcpherson DO Status:REG ER Location: ED HPI - General General Date of Admission: 08/25/22 Date of Service: 08/25/22 Chief Complaint: Generalized weakness, fever and chills and nausea and vomiting HPI Narrative IGNACIO AQUINO, is a 77 M with past medical history significant for paraplegia following neck trauma who does self-catheterization presents with progressive generalized weakness. Patient also did experience subjective fever and chills. Per patient's who provided much of the history patient also did complain ofabdominal discomfort with some bloating and had vomited a couple of times prior to being brought to the emergency department. In the ED his work-up was consistent with acute cystitis. Was also found to have elevated lipase levels. Subsequent CT of the abdomen and pelvis did show some stranding around the pancreas. 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 Neurogenic bladder Neurogenic bowel Neuropathy 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.9) Paraplegia Premature ventricular contractions Prostatic hypertrophy Sick sinus syndrome Sick sinus syndrome Spinal cord injury Subluxation of C6-C7 cervical vertebrae TIA (transient ischemic attack) Home Medications lisinopril 20 mg tablet 20 mg PO DAILY blood pressure 06/24/15 [History Last Taken 03/28/19] ascorbic acid (vitamin C) 500 mg tablet 1,000 mg PO LUNCH supplement 08/17/21 [History Last Taken Unknown] carvedilol 12.5 mg tablet 12.5 mg PO Q12H BP 30 days #60 tabs 09/03/21 [Rx Last Taken Unknown] tamsulosin 0.4 mg capsule 0.4 mg PO QHS Urine retention 30 days #30 caps 09/03/21 [Rx Last Taken Unknown] citalopram 20 mg tablet 20 mg PO QHS depression 12/04/21 [History Last Taken Unknown] gabapentin 300 mg capsule 300 mg PO BID Nerve pain 12/04/21 [History Last Taken Unknown] nifedipine 30 mg tablet,extended release 15 mg PO DAILY BP 12/04/21 [History Last Taken Unknown] apixaban 5 mg tablet (Eliquis) 5 mg PO BID blood thinner #180 tabs 01/21/22 [Rx Last Taken Unknown] nitrofurantoin monohydrate/macrocrystals 100 mg capsule (Macrobid) 100 mg PO BID05/19/22 [History Last Taken Unknown] potassium chloride 10 mEq tablet,extended release(part/cryst) 10 meq PO DAILY supplement 05/19/22 [History Last Taken Unknown] Allergy/AdvReac Type Severity Reaction Status Date / Time ceftriaxone Allergy Rash Verified 08/25/22 09:14 ciprofloxacin [From Cipro] Allergy Hives Verified 08/25/22 09:14 sulfamethoxazole Allergy PT UNSURE Verified 08/25/22 09:14 [From Bactrim] OF REACTION trimethoprim [From Bactrim] Allergy PT UNSURE Verified 08/25/22 09:14 OF REACTION Family History Mother Breast cancer Cancer Brain cancer Sister Diabetes Hypertension CHF (congestive heart failure) Kidney disease Sister CHF (congestive heart failure) Cardiac defibrillator in situ Other Family history of hypertension Surgical History History of neck surgery History of permanent cardiac pacemaker placement S/P cervical spinal fusion Social History household members: spouse Smoking Status: Never smoker alcohol intake: current alcohol intake frequency: holidays/special occasions only Alcohol type: wine substance use type: does not use caffeine: Yes Type: coffee Number of servings: 1 what type of physical activity do you participate in: other details: Health point frequency: 1-2 times per week duration: 45-60 minutes/day seatbelt use: always do you feel safe at home: Yes ROS ROS Narrative GENERAL: fever, chills, night sweats, HEENT: denies headache, sinus congestion, RESPIRATORY: denies cough, sputum production, CARDIAC: denies chest pain, palpitations, orthopnea, GASTROINTESTINAL: abdominal pain, nausea, GENITOURINARY: Malodorous urine EXTREMITY: denies swelling MUSCULOSKELETAL: denies current joint pain or tenderness HEMATOLOGIC: denies easy bruising and/or hemorrhage INTEGUMENT: denies rashes PSYCHIATRIC: denies suicidal or homicidal ideation Vital Signs Vital Signs Vital Signs: 08/25/22 09:16 08/25/22 09:20 08/25/22 11:18 Temperature 98.7 F Temperature Source Temporal Pulse Rate 72 65 Respiratory Rate 24 H Respiratory Effort Short of Breath Respiratory Pattern Normal Blood Pressure 155/89 H 152/79 H Blood Pressure Mean 111 103 Pulse Ox 94 Oxygen Delivery Method Room Air 08/25/22 12:15 Temperature 98 F Temperature Source Temporal Pulse Rate 63 Respiratory Rate 27 H Respiratory Effort Respiratory Pattern Blood Pressure 158/78 H Blood Pressure Mean 104 Pulse Ox Oxygen Delivery Method Weight Weight: 118.1 kg Body Mass Index (BMI) 38.4 Physical Exam Narrative GENERAL: cooperative HEENT: Atraumatic; normocephalic EYES; Anicteric, Normal Conjunctiva NECK; supple, normal thyroid, RESPIRATORY: Diminished to auscultation CARDIOVASCULAR: Regular S1 S2, GI: normoactive bowel sounds, : No Renal angle tenderness; EXTREMITIES: No edema, no clubbing, MUSCULOSKELETAL: no muscle wasting NEURO: Awake; no lateralizing signs. SKIN: No Rash PSYCH; Flat affect Results Lab / Micro Data Result Diagrams: 08/25/22 09:20 08/25/22 09:20 Labs: Laboratory Results - last 24 hr 08/25/22 09:20: WBC 15.7 H, RBC 4.85, Hgb 14.5, Hct 44.6, MCV 92.0, MCH 29.9, MCHC 32.5, RDW Std Deviation 51.0 H, RDW Coeff of Donna 15.2 H, Plt Count 207, MPV10.8, Immature Gran % (Auto) 0.600, Neut % (Auto) 86.3 H, Lymph % (Auto) 5.4 L, [place] % (Auto) 7.3, Eos % (Auto) 0.3, Baso % (Auto) 0.1, Absolute Neuts (auto) 13.6 H, Absolute Lymphs (auto) 0.85, Nucleated RBC % 0 08/25/22 09:20: Sodium 140, Potassium 3.6, Chloride 108 H, Carbon Dioxide 24.0, Anion Gap 8, BUN 27 H, Creatinine 1.61 H, Estim Creat Clear Calc 39.03, Est GFR (MDRD) Af Amer 54 L, Est GFR (MDRD) Non-Af 45 L, BUN/Creatinine Ratio 16.8, Glucose 115 H, Calcium 9.2, Total Bilirubin 2.70 H, AST 81 H, ALT 216 H, Alkaline Phosphatase 134 H, Troponin I High Sens 11, Total Protein 7.8, Albumin 3.8,Globulin 4.0, Albumin/Globulin Ratio 1.0, Lipase > 250 H 08/25/22 10:10: Urine Color Yellow, Urine Clarity Cloudy, Urine pH 6.0, Ur Specific [place] 1.020, Urine Protein 30 H, Urine Glucose (UA) Normal, Urine Ketones 5 H, Urine Occult Blood 150 H, Urine Nitrite Positive H, Urine Bilirubin1 H, Urine Urobilinogen 1 H, Ur Leukocyte Esterase 500 H, Urine RBC 0-5 SEEN, Urine WBC >100 SEEN, Ur Squamous Epith Cells 0-5 SEEN, Urine Bacteria 1+, Urine Mucus 0 SEEN 08/25/22 11:10: Lactic Acid 1.0 Radiology Impression Abdomen/Pelvis CT 08/25/22 09:30 IMPRESSION: Minimal pleural effusions with increased markings at the lung bases suggestive of atelectasis. Findings suggestive of mild degree of pancreatitis with increased markings in the surrounding peripancreatic fat. Stable bilateral renal cysts. Nonobstructive calculus in the right kidney. Prostatic enlargement with indentation at the bladder base. Diffuse bladder wall thickening with trabeculation. Electronically Signed: Umang Guerra MD at 11:12 EDT , Chest X-Ray 08/25/22 10:48 IMPRESSION: Moderate cardiomegaly with mild increased markings at the right lung base. Electronically Signed: Umang Guerra MD at 11:13 EDT , Assessment & Plan Assessment/Plan (1) UTI (urinary tract infection): (2) Pancreatitis: PLAN: Plan Patient is a 77-year-old gentleman with past medical history significant for neck trauma with subsequent paraplegia brought to the emergency department with progressive generalized weakness.? Work-up consistent with UTI UTI. 1.? UTI with? secondary to use of PRN straight cath as a result of chronic urinary retention in view of patient underlying paraplegia ?Admitted to regular nursing floor managed with IV fluids, broad-spectrum antibiotic therapy with meropenem. Culture sent we will follow-up on result 2. Acute pancreatitis ? Etiology not clear admitted to regular nursing floor managed with antinausea medication pain medication PPI as well as clear liquids 3.? Essential hypertension Blood pressure controlled on lisinopril and nifedipine did continue 4.? Paraplegia following traumatic neck fracture ?Supportive care patient apparently has chronic urinary retention for which patient undergoes periodic straight cath as needed 5.? BPH ?Patient is on Flomax did continue 6. Paroxysmal A-fib ? Rate controlled on systemic anticoagulation with apixaban 7.? Peripheral neuropathy ?Patient is on gabapentin did continue 8.? Depression Patient is on SSRI did continue 9.? DVT prophylaxis ? On apixaban Time spent in the patient's overall evaluation,decision-making process, review of diagnostic data, adjustment of management, discussion with other providers, nursing nursing and ancillary staff involved in patient's care documentation, 75Minutes Advance planning; did discuss with the patient and family regarding advanced directives as well as CODE STATUS. Did explain the various scenarios involved (FULL CODE, DNR CCA, DNR CCA with no intubation, and DNR CC and what each meant) patient elected to remain full code with CPR and intubation if needed. Order was placed. Time spent on discussion 18 minutes. Charges/Coding Visit Charges Inpatient E&M: 07841 Init Hosp L3 Procedures Hospitalists Procedures: 14137 Advncd Care Plan 30 Min 08/25/22 1223 <Electronically signed by Marc Cantu MD> Cosigner Signature (if applicable): CC: Dr. Marc Cantu MD; Dr. Mallory Mcpherson DO~ Signed [facility] Work Phone: 1(862) 962-478612-15-2022 NoteHNO ID: [id number] Author: Yumiko Marcum, OT/L Service: ? Author Type: Occupational Therapist Type: Progress Notes Filed: 03/05/2022 8:44 AM Note Text: /Episode Visit Count: 1 Start of Care Date: 02/26/22 Onset Date: 07/11/21 (he had a stroke and was hospitalized until 09/13/21 following as was SCI from 7 years ago with incomplete quadraplegia since then) Patient Identified by Name and Date of : Yes REHABILITATION AND SPORTS THERAPY OCCUPATIONAL THERAPY INSTRUMENTAL ADL AND COMMUNITY MOBILITY EVALUATION SUBJECTIVE: Ignacio Aquino is a 76 year old male seen today for OT functional community mobility assessment post CVA while had driven following his SCI and prior to the stroke. He had the stroke on 07/11/21 and was hospitalized including rehab until September due to his challenges he had due to incomplete quadriplegia. His son shared that he continues in outpatient ST and PT currently 2x/week in [place] and that there is a significant support system available with various family members which is ongoing with mom as main care provider. His son indicated that his speech has been most affected now from the stroke while he does best if speech is slow. Functional Limitations: walking in the community;heavy exertion;stair negotiation;lifting;physical activities;dressing;driving;grooming;compromised bladder function;compromised bowel function;bed mobility Prior Level of Function: Required assistance Home Environment Patient Lives With: Spouse Assistance Available: 24-Hour Home Type: Multi-Level Transportation: SUV;Travels as a passenger (has not driven since having the CVA) Patient Goals: to return to driving self short distances Intake Information: Prescription present Previous Treatment: Physical Therapy ;Occupational Therapy;Speech Therapy ;Surgery ;Neuro Rehab;Acute Hospital ;Home Therapy Falls Interview: No positive findings with falls interview Relevant History Past Relevant Medical Conditions: Arthritis;Cardiac;Concussion;Cerebral Vascular Accident;Hypertension;Lower Extremity Edema;Neuropathy;Pacemaker Past Relevant Surgical Conditions: Spine fusion - Cervical Spine Fusion - Cervical Comments: related to SCI 7 years ago Highest Level of Education: High School Preferred Language: Spanish Right or Left Handed: Right Employment: (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 as was no longer able to do any physical work after the SCI) Recreation / Current Exercise: walks about 200 ft/day with his walker outside of home without supervision when weather conducive Hobbies / Interests: limited now to TV mainly but had various interests in the past including working Home Environment Patient Lives With: Spouse Assistance Available: 24-Hour Home Type: Multi-Level Transportation: SUV;Travels as a passenger (has not driven since having the CVA) Activities of Daily Living: moderate to maximal assist required for most tasks since SCI Instrumental Activities of Daily Living: maximal to total assist required for all home management tasks since SCI Driving History: 57 years while has not driven since 07/10/21 and was mainly driving to work prior to the stroke; has [employer] while has [employer] she prefers to drive and take him in as not as high as [employer] State: [place] License/Permit #: [id number] Expires: 06/14/23 Restrictions: none 5 Yr. Violation HX: no 5 Yr. MVA HX: no Handicap Parking Placard: YES 1. Ignacio Aquino self report indicates an awareness of: Weakness, incoordination, or limited motion in B legs Tingling or Numbness in: feet Fatigue, or poor endurance 2. Ignacio Aquino expressed confidence regarding driving when driving alone locally prior to the stroke. 3. Ignacio Aquino expressed no concerns regarding driving. OBJECTIVE MEASURES WITH LEVEL OF FUNCTION: SENSORIMOTOR ASSESSMENT: Hand dominance: Right Level of Function Relevant to I ADL, Community Mobility, and Driving: Right UE: Sufficient Left UE: Sufficient Orchid Transplanter: Sufficient Right LE: Insufficient Left LE: Marginal Sitting Balance: Sufficient Head / Neck: Marginal Ambulation: was using B LBQC this date but also has wheeled walker he uses for ambulation while very slow with poor posture Transfers: required assist from son to enter the passenger side of own vehicle due to not being able to move BLE's on own Loading of Device: did not observe while would be challenging for him to do the same given his deficits ASSESSMENT OF SENSORIMOTOR FUNCTION: Not Suggestive of Safe Driving VISION SCREENING: Vision Vision Deficits: Wears corrective lenses Corrective lenses: reading only with most recent eye exam 6 months ago Corrective Lenses: None Distant Acuity: (more content not included)...[facility]12-15-2022 History of Present illness Narrative* Yumiko Marcum, OT/L - 02/26/2022 3:33 PM EST 9/Episode Visit Count: 1 Start of Care Date: 02/26/22 Onset Date: 07/11/21 (he had a stroke and was hospitalized until 09/13/21 following as was SCI from 7years ago with incomplete quadraplegia since then) Patient Identified by Name and Date of : Yes REHABILITATION AND SPORTS THERAPY OCCUPATIONAL THERAPY INSTRUMENTAL ADL AND COMMUNITY MOBILITY EVALUATION SUBJECTIVE: Ignacio Aquino is a 76 year old male seen today for OT functional community mobility assessment post CVA while had driven following his SCI and prior to the stroke. He had the stroke on 07/11/21 and was hospitalized including rehab until September due to his challenges he had due to incomplete quadriplegia. His son shared that he continues in outpatient ST and PT currently 2x/week in [place] and that there is a significant support system available with various family members which is ongoing with mom as main care provider. His son indicated that his speech has been most affected now from the stroke while he does best if speech is slow. Functional Limitations: walking in the community;heavy exertion;stair negotiation;lifting;physical activities;dressing;driving;grooming;compromised bladder function;compromised bowel function;bed mobility Prior Level of Function: Required assistance Home Environment Patient Lives With: Spouse Assistance Available: 24-Hour Home Type: Multi-Level Transportation: SUV;Travels as a passenger (has not driven since having the CVA) Patient Goals: to return to driving self short distances Intake Information: Prescription present Previous Treatment: Physical Therapy ;Occupational Therapy;Speech Therapy ;Surgery ;Neuro Rehab;Acute Hospital ;Home Therapy Falls Interview: No positive findings with falls interview Relevant History Past Relevant Medical Conditions: Arthritis;Cardiac;Concussion;Cerebral Vascular Accident;Hypertension;Lower Extremity Edema;Neuropathy;Pacemaker Past Relevant Surgical Conditions: Spine fusion - Cervical Spine Fusion - Cervical Comments: related to SCI 7 years ago Highest Level of Education: High School Preferred Language: Spanish Right or Left Handed: Right Employment: (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 as was no longer able to do any physical work after the SCI) Recreation / Current Exercise: walks about 200 ft/day with his walker outside of home without supervision when weather conducive Hobbies / Interests: limited now to TV mainly but had various interests in the past including working Home Environment Patient Lives With: Spouse Assistance Available: 24-Hour Home Type: Multi-Level Transportation: SUV;Travels as a passenger (has not driven since having the CVA) Activities of Daily Living: moderate to maximal assist required for most tasks since SCI Instrumental Activities of Daily Living: maximal to total assist required for all home management tasks since SCI Driving History: 57 years while has not driven since 07/10/21 and was mainly driving to work prior to the stroke; has 2007 [employer] while has 2013 [employer] she prefers to drive and take him in as not as 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 Violation HX: no 5 Yr. MVA HX: no Handicap Parking Placard: YES 1. Ignacio Aquino self report indicates an awareness of: Weakness, incoordination, or limited motionin B legs Tingling or Numbness in: feet Fatigue, or poor endurance 2. Ignacio Aquino expressed confidence regarding driving when driving alone locally prior to the stroke. 3. Ignacio Aquino expressed no concerns regarding driving. OBJECTIVE MEASURES WITH LEVEL OF FUNCTION: SENSORIMOTOR ASSESSMENT: Hand dominance: Right Level of Function Relevant to I ADL, Community Mobility, and Driving: Right UE: Sufficient Left UE: Sufficient Orchid Transplanter: Sufficient Right LE: Insufficient Left LE: Marginal Sitting Balance: Sufficient Head / Neck: Marginal Ambulation: was using B LBQC this date but also has wheeled walker he uses for ambulation while very slow with poor posture Transfers: required assist from son to enter the passenger side of own vehicle due to not being able to move BLE's on own Loading of Device: did not observe while would be challenging for him to do the same given his deficits ASSESSMENT OF SENSORIMOTOR FUNCTION: Not Suggestive of Safe Driving VISION SCREENING: Vision Vision Deficits: Wears corrective lenses Corrective lenses: reading only with most recent eye exam 6 months ago Corrective Lenses: None Distant Acuity: Binocular: 20 / 30-1 Nighttime Glare: Right: BLINDNESS IN THIS EYE FOLLOWING SCI Left: 20 / 30 Peripheral Vision: Not sufficient for driving Right Eye: Failed to recognize stimuli: 35 degrees, 55 degrees, 70 degrees, and 85 degrees Left Eye: Failed to recognize stimuli: 35 degrees nasally and 85 degrees Pursuits: Appeared Irregular / Slow and Decreased Speed, difficulty maintaining still head Saccades: Appeared Irregular / Slow and Decreased Speed, decreased movement for B lower quadrants Convergence: no movement with either eye Nystagmus: Not Apparent Diplopia: No complaints Strabismus: No OU Cataracts: No OU Glaucoma: No. OU Other Eye Conditions / Diseases Reported: has had right eye blindness since the SCI ASSESSMENT OF VISUAL FUNCTION: BASED ON SCREENING WHICH IS CONSISTENT WITH [facility] FOR VISUAL LLANES, HE CURRENTLY IS NOT MEETING THE MINIMAL REQUIREMENTS FOR VISUAL LLANES TO ALLOW DRIVING COGNITIVE / PERCEPTUAL ASSESSMENT: SHORT BLESSED TEST Short Blessed Test 1. What Year Is It Now?: Correct 2. What Month Is It Now?: Correct 3. What Time is it? (WIthin 1 hour): Correct 4. Count Aloud Backwards 20 to 1 (Errors): 0 5. Months of the Year in Reverse Order (Errors): 0 6. Memory Phrase (Errors) : 0 Short Blessed Final Score: 0 Short Blessed Test Scorin-8; Normal to minimal impairment 9-19; Moderate impairment 20-28; Severe impairment [email or web address] Visual Scanning/Attention: [place] Making Part A (sec): 85 sec 50th percentile norm for age group: 70-79; Part A: 80 seconds, Part B: 196 seconds Mickie Clock Drawing Test: Ignacio Mora Kenia correctly included 0/8 criteria for this test. He failed to include or correctly place: all 12 hours in correct numeric order, starting with 12 at the top only the numbers 1-12 (no duplicates, omissions, or foreign markings) the numbers inside the clock cowlitz the numbers equally, or nearly so, from each other the numbers equally spaced, or nearly so, from the edge of the cowlitz one clock hand at the two o'clock position the other clock hand at the eleven o'clock position only two clock hands (Expect performance based on reading comprehension deficits) According to The Physician's Guide to Assessing and Counseling Older Drivers, 2003, any incorrect element in the Mickie Clock Scoring signals a need for intervention. 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 Simulator: Simple Brake Reaction Time: Average Distance: 78 feet (Normal = 60 feet) HE DEMONSTRATED VERY INCONSISTENT PERFORMANCE FOLLOWING PRACTICE PRIOR TO SCREENING WHILE DIFFICULTFOR HIM TO MOVE HIS RIGHT FOOT FROM GAS TO BRAKE PEDAL, NOT REACTING X3, RIGHT FOOT BEING ON BOTH PEDALS DURING SCREENING Education: Education Learning Preferences: Demonstration Barriers: Communication Deficit Learning/educational needs: Safety;Plan of Care Education Provided: Yes, see treatment interventions for education provided Education Provided To: Patient;Family (son was present) Education Mode/Type: Explanation/Discussion Response to Education/Teach Back: States/Identifies TREATMENT: Evaluation [facility] Management: 1: refer to documentation for details 2: provided support and education to patient/son as appropriate Skilled Intervention: Skilled judgment in the selection of proper modification for activity of daily living/home management based on clinical presentation, deficits, and needs. Educated the patient regarding recommendations and provided written instruction to facilitate compliance. Reviewed patient specific diagnosis in relation to activities of daily living/home management. Activity progression based on professional judgement. PLAN OF CARE: SUMMARY AND RECOMMENDATIONS *The information in this report indicates the ability of the log truck driver to operate a motor vehicle on this date only. Due to the complex nature of the safe operation of a motor vehicle, and considering the demands of integrating changing environmental conditions, and visual, cognitive, and physical skills, successful completion of this program is not a guarantee of safe driving in the future. 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 RECOMMENDATIONS: ADL/IADL Recommendations: ongoing moderate to maximal assist needed as has been the case for the past 7 years Driving Recommendations: REFRAIN FROM DRIVING NOT MEETING [facility] MINIMAL VISUAL FIELD REQUIREMENTS IN ADDITION TO NOT HAVING ADEQUATE PHYSICAL SKILLS FOR RETURN [place]'s Visual Field Exam Requested: Yes when next formal eye exam Recommended Complete Eye Exam: as indicated by legal services professional Planned Interventions, Frequency, and Duration: Current Frequency: 1 visit Duration: 1 visit Total Number of Visits Planned: 0 Patient demonstrates good understanding of results but was very disappointed with same. The above resultswere discussed and agreed upon by patient/family. 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 November 27, 2021 2:58pm Note Date/Time November 27, 2021 2:58pm [facility] Occupational Therapy [facility] [address] [place] [address]. [address] [place] [address] / REHABILITATION SERVICES DISCHARGE SUMMARY MR#: [id number] Acct: [id number] Name: IGNACIO AQUINO Rep #: [id number] : 1945 76 From: Lulu MCRAE, CHT Referring Dr.: Dr. Mallory Mcpherson DO Status: REG RCR Eval Date: Discharge Date: It has been my pleasure to treat IGNACIO AQUINO under orders from Dr. Mallory Mcpherson DO, for the diagnosis of Stroke for a total of 18 visit(s). Please see the following information for a summary of their discharge status. % Improvement: 40 Objective/Function: 9HPT- L- 34 seconds this is improved from 37sec. 9HPT- R- 38 seconds (goal was 49 seconds). Lateral pinch L- 19#. Lateral pinch R- 16#. senior oracle developer test: R-elbow at side- 80# increase from 60#. L- elbow at side- 80# increase from 60#. pt has met OT goals at this time Patient Goals: Return to Work, Improve Fine Motor Skills, Use Hand/Wrist/Arm Normally Again, Be More Independent in ADLS, Resume Former Household Responsibilities (Cooking,Cleaning,Yard, etc.), Resume Hobbies Goal:: Pt to demo improved R lateral pinch strength by 3# in order to improve pt's functional indep in fine motor activities and ADLs. Goal:: Pt to demo improved R 9HPT by decreasing time by 10 seconds in order to manipulate smaller objects with greater accuracy and speed. Pt to demo improvedR in-hand manipulation skills to promote good intrinsic strength to perform worktasks. Pt to demo improved R hand coordination to complete writing activities with overall good legibility to promote indep at work and to assist as a functional form of communication. Goal:: Pt to demo decreased quick DASH score by 10% in order to demonstrate improved functional indep at home. Plan: cont with OT POC Discharge Comments: pt was seen for 18 OT visits to increase strength- pt met OTgoals - pt and pts agree with d.c from OT and will continue with speech andphysical therapy. If there are questions or concerns regarding this patient's occupational therapy, please fell free to call me at [phone]. Thank you for the referral of this patient. Sincerely, Lulu Chappell OTR/Say, CHT <Electronically signed by Lulu Chappell OTR/Say CHT> 11/27/21 [id number] CC: Dr. Mallory Mcpherson DO; Dr. Luis Carlos Gallardo MD ~ MK Signed [facility] Work Phone: 1(637) 334-407805-13-2022 Hospital course Narrative* Vinny Vargas MD - 07/25/2021 5:38 AM EDT DISCHARGE SUMMARY Name: Ignacio Aquino Age:76 y.o. Birthday: 1945 Admit Date: 07/22/2021 2:36 PM Discharge Date: 07/25/21 Discharge Unit: [facility], Service Gen Med 1 Admitting Physician: Shanika Jose MD Discharge Physician: No att. providers found DISCHARGE LETTER: Primary Problems Addressed: 1. Altered mental status, likely 2/2 TIA from Afib Further Recommendations for Primary Care/Outpatient Provider AFTER DISCHARGE: 1. Consider treating UTI if pt exhibits fever/irritability/lower ext weakness ( says this happens when he gets UTIs). Susceptibilities from his UCx are pending 2. Start eliquis on 07/26, stop ASA on 07/26 Dear Doctors, I recently had the opportunity to care for Ignacio Aquino during his recent hospital stay at [facility]. As you may know, Ignacio Aquino is a 76 y.o. 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 Altered Mental Status, resolving Recent L MCA stroke s/p tPA On 07/22, pt was found to have cognitive progress since his discharge after his stroke (07/18/21) withaphasia and inability to follow commands. Abd distended on arrival, CTAP w/ no acute abnormalities,distension improved w/ bowel regimen. Pt not complaining of abd pain. On 07/23, Mr. Aquino was improved as he was able to follow one step commands, answer questions appropriately and move all his extre mities. UCx grew mixed microbes, pt w/o UTI sx, says his UTI sx include fever, irritability, leg weakness; he is currently experiencing none of these sx and his says he's back to his neuro baseline as of 07/24/21. Abx were deferred as a result. Pacemaker interrogation revealed that he hadafib when he was altered thus we suspect that his AMS may be 2/2 poor perfusion/TIA from his Afib. Continue ASA 81 mg daily until 07/26, start Apixiban 5mg BID 07/26. Continue atorvastatin 40mg daily. Afib SSS s/p pacemaker CHADVASC 5. Interrogated pacemaker: 7 AF episodes, longest run lasted 2 days from 07/18-5.8 w/ 90bpm median ventricular rate, AF burden 41%. He has 5 years of service remaining on this pacemaker. Eliquis as above. Beta tomás as below. Hypertension Pt noted to have high blood pressures up to the 190s/90s overnight. Pt has been on lisinopril, nifedipine, and coreg after previous admission for stroke. Resume nifedipine 30mg QDay, lisinopril 20mg daily, and carvedilol 12.5mg q12h C5/C6 fracture with post-traumatic myelopathy Pt has history of weakness in his lower extremity and a neurogenic bladder from previous injury. Mejía placed in ED, removed 07/23. Bladder scan, straight cath q6h during this admission. Rash Pt has a new scaly rash along neck and jaw line that patient occasionally itches. Ddx includes seborrhoic dermatitis vs eczema vs dry skin. Topical hydrocortisone 1% ointment to apply to neck and jawline BID. Chronic Problems: Neuropathy: home gabapentin Depression/anxiety: citalopram DISCHARGE MEDICATIONS: Discharge Orders Activity as tolerated Call MD for: difficulty breathing, headache or visual disturbances Call MD for: elevated temperature Call MD for: extreme fatigue Call MD for: persistent dizziness or light-headedness Call MD for: persistent nausea or vomiting Diet (specify) Medication List CHANGE how you take these medications gabapentin 100 MG CAPS Commonly known as: NEURONTIN take 2 capsules by mouth 3 times daily. What changed: how much to take when to take this CONTINUE taking these medications apixaban 5 MG TABS Commonly known as: ELIQUIS Take 1 tablet by mouth every 12 hours. Start taking on: July 26, 2021 aspirin 81 MG CHEW chewable tablet Chew 1 tablet daily for 2 days. atorvastatin 40 MG TABS Commonly known as: LIPITOR Take 1 tablet by mouth at bedtime. baclofen 10 MG TABS Commonly known as: LIORESAL bisacodyl 10 MG SUPP suppository Commonly known as: DULCOLAX CALMOSEPTINE EX carveDILOL 12.5 MG TABS Commonly known as: COREG Take 1 tablet by mouth every 12 hours. citalopram 40 MG TABS Commonly known as: CELEXA take 1 tablet by mouth at bedtime. DISABILITY PLACARD Disability placard end date 04/10/2019 ENSURE COMPLETE PO EQ Acetaminophen 500 MG TABS Generic drug: acetaminophen ferrous sulfate 325 (65 Fe) MG tab DR tablet finasteride 5 MG TABS Commonly known as: PROSCAR ketoconazole 2 % CREA cream Commonly known as: NIZORAL Lactobacillus TABS lisinopril 20 MG TABS Commonly known as: PRINIVIL melatonin 3 MG TABS Methenamine Hippurate 1 g TABS MILK OF MAGNESIA PO NIFEdipine 30 MG (OSM) tablet XL Commonly known as: PROCARDIA XL nystatin 209257 UNIT/GM POWD powder Commonly known as: NYSTOP;MYCOSTATIN potassium chloride 20 MEQ tab ER tablet Commonly known as: K-DUR senna 8.6 MG TABS Commonly known as: SENOKOT Tamsulosin HCl 0.4 MG CAPS Commonly known as: FLOMAX take 1 capsule by mouth at bedtime. Follow Up Mallory Mcpherson DO [address] [facility] [place] [id number] Follow up Please call to schedule an appointment with your PCP within 7-10 days. Ignacio Quan MD [address] [facility], [address] [place] [phone] Heath Mcdowell MD [address] [facility] [phone] Physical Exam on the Date of Discharge: Blood pressure 158/82, pulse 67, temperature 97.3 F (36.3 C), temperature source Oral, resp. rate 18, height 1.753 m (5' 9), weight 104.7 kg (230 lb 13.2 oz), SpO2 95 %. Gen: NAD, well-appearing HENT: Normocephalic atraumatic, extraocular motion intact Cardio: RRR, normal S1/S2, grade 2 systolic ejection murmur GI: Non-distended, no suprapubic tenderness MSK: no joint swelling or erythema Ext: warm and well-perfused, no LE edema Skin: Scaly rash along jaw line and neck Neuro: Alert, able to say short phrases but also has unintelligent speech. Appropriately respondingto questions and following one step commands sometimes. He was moving all four extremities and moving both arms against gravity. Has good senior oracle developer strength. Able to move ankle but unable to move toes. Neuro exam is inconsistent 2/2 pt unable to follow commands at times; however spontaneous movement of all 4 extremities witnessed. At the time of discharge the patient's: - Mental status was NOT oriented to person, place, time. - Diet was DIET HEART HEALTHY - 4 GM SODIUM - Code status was Full Code It has been my pleasure participating in this patient's care. Please contact me with any questions or concerns regarding his hospital stay. Sincerely, Vinny Vargas MD Dictated under attending physician: No att. providers found p: [phone] f: [phone] PROCEDURES None IMAGING XR CHEST AP PORTABLE ED Final Result IMPRESSION: Cardiomegaly. No acute process. I personally viewed and interpreted these images and I have reviewed and approved this report. ABDOMEN/PELVIS WITHOUT CONTRAST Final Result IMPRESSION: 1. No acute findings in the abdomen or pelvis. STROKE HEAD-STROKE ALERT ONLY Final Result IMPRESSION: 1. Areas of relative hyperdensity in the left MCA and BIOMETRICIAN territory involving the left basal ganglia, left temporal lobe, and left occipital lobe likely represent enhancing areas of subacute infarction given the recent contrast administration at an outside hospital. These correspond to areas of infarction seen on recent MRI brain dated July 16, 2021. 2. No acute intracranial hemorrhage or new acute large territorial infarct. 3. 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 Findings were discussed with BART Padilla at 3:10 PM on July 22, 2021. I personally viewed and interpreted these images and I have reviewed and approved this report. Should you require further information or copies of results or reports please contact Medical Information Management @ [phone] RESULTS / STUDIES PENDING AT DISCHARGE: Follow up susceptibilities for urine culture if pt is suspected to have UTI [facility] RESULTS (Significant and from time of discharge) Lab Results Component Value Date SODIUM 140 07/23/2021 POTASSIUM 3.6 07/23/2021 CHLORIDE 111 (H) 07/23/2021 CO2 22 07/23/2021 BUN 23 07/23/2021 CREATSERUM 0.90 07/23/2021 GLUCOSE 84 07/23/2021 GLUCOSE 84 07/23/2021 Lab Results Component Value Date WBC 8.34 07/23/2021 HGB 13.9 07/23/2021 HCT 40.3 07/23/2021 PLATELET 185 07/23/2021 MCV 88.0 07/23/2021 Lab Results Component Value Date HGBA1C 5.2 07/13/2021 No results found for: BNP No results found for: TROP Lab Results Component Value Date CHOLESTEROL 139 07/13/2021 TRIG 83 07/13/2021 HDL 32 (L) 07/13/2021 Lab Results Component Value Date ALT 45 07/23/2021 AST 33 07/23/2021 ALKPHOS 64 07/23/2021 BILITOTAL 1.3 07/23/2021 BILIDIRECT 0.3 (H) 07/23/2021 PATIENT'S MEDICAL HOME AT DISCHARGE: Mallory Mcpherson [facility] [address] [facility] [place] [address] [place] [address] CONSULTS DURING ADMISSION: IP CONSULT TO PHYSICAL THERAPY IP CONSULT TO OCCUPATIONAL THERAPY IP CONSULT TO WOUND / OSTOMY NURSING TEAM IP CONSULT TO SPEECH THERAPY Associated attestation - Shanika Jose MD - 07/25/2021 8:21 AM EDT Attending Addendum: I have seen and examined Ignacio Aquino personally on day of discharge. I saw the patient during resident rounds. I re-interviewed the patient and reviewed the medical records. I have independently verified the history and physical examination findings as presented in the resident note and I agree with the history, physical exam, and medical assessment and plan with the additions below. I discussed my findings and the therapeutic plan with the resident team and supervised the medical decision making. Plan and hospital course as outlined per resident note. Patient ready for discharge today. < 30 minutes spent on discharge of this patient. Shanika Jose MD, FACP, FAAP Special Event Assistant of Clinical Medicine General Internal Medicine [facility] [place] Note* Nursing Notes - Brook Montoya RN - 07/25/2021 5:33 AM EDT Report called to Blaire at [facility]. Patient discharged at this time via cart with EMS service. IV removed prior to discharge. All paperwork faxed to facility. [facility] [place] Miscellaneous Notes* Nursing Notes - Brook Montoya RN - 07/25/2021 5:33 AM EDT Report called to Blaire at [facility]. Patient discharged at this time via cart with EMS service. IV removed prior to discharge. All paperwork faxed to facility. * Plan of Care - Catrachito Pedraza RN - 07/24/2021 6:10 AM EDT Problem: Patient Care Overview Goal: Plan of Care Review Outcome: Ongoing Goal: Individualization & Mutuality Outcome: Ongoing Goal: Discharge Needs Assessment Outcome: Ongoing Goal: Interdisciplinary Rounds/Family Conf Outcome: Ongoing Problem: PT - Transfers Goal: Supine <-> Sit Description: Pt will perform bed mobility with flat bed & no rail with moderate assistance in order to improve functional mobility and safety. Outcome: Ongoing Goal: Sit <-> Stand Description: Pt will perform sit to/from stand transfers with maximal assistance with wheeled walker in order to improve functional mobility and safety. Outcome: Ongoing Goal: Stand-Pivot Description: Pt will perform stand/pivot transfer to/from bed/chair/commode with maximal assistancewith wheeled walker in order to improve functional mobility and safety. Outcome: Ongoing Goal: Strength/ROM Description: Pt will perform 2 sets of 15 repetitions of upper lower bilateral extremity exercises with contact guard assistance in order to improve strength, maintain ROM, necessary for functional mobility. 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 Outcome: Ongoing Goal: Command Following Description: Patient will complete simple 1-step commands (minimum of x10) to 70% success with max cues as needed in order to improve direction following for functional gains in ability to participate more independently in care. Outcome: Ongoing Goal: Expressive Language Goal 1 Description: Patient will communicate basic wants/needs via any communication modality on at least 3 opportunities across 1 session to improve functional communication and ability to direct care. Outcome: Ongoing Problem: OT - Dressing Goal: Upper Body Dressing Description: Pt will complete UE dressing task Edge of bed with standby assistance for improved ability to complete self-care activities. Outcome: Ongoing Problem: OT - ADLs Goal: Grooming Description: Pt will complete grooming Edge of bed with standby assistance for improved ability to safely complete ADLs. Outcome: Ongoing Problem: OT - Balance Goal: Balance - Seated Description: Pt will perform 10 minutes of ADL routine in sitting with contact guard assistance andbalance level of contact guard to promote safety during self-care activities. Outcome: Ongoing Problem: OT - Transfers Goal: Transfers Toilet/Bedside Commode Description: Pt will transfer to/from toilet/BSC with moderate assistance for improved ability to safely complete ADLs. Outcome: Ongoing Admitted for altered mental status, s/p embolic stroke at end of June. Condom cath applied overnight after patient noted to be dribbling urine and straight cath yielded 200 cc urine. Turn and reposition q2h and bordered foam applied to coccyx to reduce risk of worsening skin breakdown. Anticipate discharge to SNF when clinically appropriate * Nursing Notes - Ayla Guerrero RN - 07/23/2021 4:11 PM EDT Images from the original note were not included. WOC/ET Nursing Consult/Evaluation Note Evaluated Ignacio Aquino for suspected pressure Description of wound: Gluteal moisture related skin damage- Base of wounds are pink, moist, superficial dried crust. Periwound is pink, intact and blanchable. No drainage, no odor. Barrier spray applied. Bilateral heels- pink, intact and blanchable. Recommendation: Gluteal moisture related skin damage- Gently cleanse with soap and water or soft bath wipes. Pat dry. Shake Touchless Care Zinc Ball Ground well. Ball Ground 4-6 inches away from skin. Leave open to air. Ball Ground 2x day and prn with incontinence episodes. Please order product from distribution item number #[id number] Bilateral heels- Please suspend heels off bed surface using pillows. Recommend continued pressure reduction techniques including frequent repositioning, minimizing elevation of the head of the bed, and encouraging patient to be out of bed as much as possible (use pressure reducing wheelchair cushion when sitting in chair). Optimize nutrition to improve skin and wound outcomes. Increase protein intake as tolerated. Consider supplemental zinc, vitamin C (or multivitamin) to promote wound healing. Continue STAND Skin Bundle Score on Candace Scale If Candace ?18 , the skin bundle should be implemented in full, unless contraindicated If Candace ? 12 , Consult WOC team for High Risk for skin breakdown Turn, Offload and Reposition tubes and devices Turns are documented properly in IHIS Tubes and devices are checked and not under pt Apply Barrier Cream (incontinent pts) or Foam dressing (continent pts) Pt is incontinent, Apply Critic-Aid Clear Moisture Barrier Ointment BID or as directed by /MAYANK Pt is continent, Lift back one corner of the bordered foam dressing, inspect the skin, and then reposition the dressing over bony prominence. Nutritional Intervention Encourage 2-4 ounces of nutrition supplement 3-4 times a day. Typically this should occur with medication administration Chart type of supplement and volume consumed in I/O flowsheet Discuss with Specialist Place a consult in [facility] for the WOCN if Candace Score is ? 12 ( high or severe risk) Discuss with BERRY PICKER MACHINE OPERATOR or Unit Skin [place] The STAND skin bundle is an evidence-based prevention bundle designed to prevent pressure injuries in patients who are at risk for developing a pressure-related injury. For more information related to STAND Skin Bundle: [email or web address] See image(s) below: Candace Skin Assessment: Candace Risk Assessment Sensory Perception: 2-->very limited Moisture: 3-->occasionally moist Activity: 1-->bedfast Mobility: 1-->completely immobile Nutrition: 2-->probably inadequate Friction and Shear: 1-->problem Candace Score: 10 Candace Score: Candace Score: 10 Body mass index is 34.09 kg/m . Total time spent in assessment and treatment of patient: 35 minutes spent providing patient care. LABS: ALBUMIN Date Value Ref Range Status 02/20/2015 3.1 (L) 3.5 - 5.0 g/dL Final Albumin Date Value Ref Range Status 07/23/2021 4.0 3.5 - 5.0 g/dL Final PREALBUMIN Date Value Ref Range Status 04/02/2015 23 17 - 34 mg/dL Final Past Medical History: Diagnosis Date Anemia Central cord syndrome HTN (hypertension) Obesity Past Surgical History: Procedure Laterality Date PLACEMENT CATH SELECTIVE INTERNAL CAROTID ARTERY W/ ANGIO IPSILAT INTRACRANIAL CAROTID W/ RAD S&I N/A 07/15/2021 Laterality: N/A; Surgeon: Bill Serrato MD; Location: [facility] MAIN OR PACEMAKER PLACEMENT N/A 02/18/2015 Laterality: N/A; Surgeon: Colton Daly MD; Location: [facility] EP CERVICAL FUSION C6/C7 Wound Documentation: 07/23/21 1609 Wound (Adult, Pediatric) 07/23/21 0630 Bilateral gluteal other (see comments) Placement Date/Time: 07/23/21 0630 Present On Admission : yes Wound #: 1 Side: Bilateral Location: gluteal Type: (c) other (see comments) Wound Image Base pink;moist (blanchable) Periwound macerated;intact Drainage Amount none Wound Interventions barrier applied Dressing open to air Periwound Care dry periwound area maintained Plan Problem moisture associated skin damage Current Plan barrier cream Visit Type Consult with RN Supportive Measures optimize nutrition;turn every 2 hours WOCT Visit Frequency Wed;PRN Last Date Seen 07/23/21 RN notified of assessment and plan. Please page #[phone] or reconsult with any further needs. * Plan of Care - Krystyna Meade OT - 07/23/2021 3:56 PM EDT Problem: OT - Dressing Goal: Upper Body Dressing Description: Pt will complete UE dressing task Edge of bed with standby assistance for improved ability to complete self-care activities. Outcome: Ongoing Problem: OT - ADLs Goal: Grooming Description: Pt will complete grooming Edge of bed with standby assistance for improved ability to safely complete ADLs. Outcome: Ongoing Problem: OT - Balance Goal: Balance - Seated Description: Pt will perform 10 minutes of ADL routine in sitting with contact guard assistance andbalance level of contact guard to promote safety during self-care activities. Outcome: Ongoing Problem: OT - Transfers Goal: Transfers Toilet/Bedside Commode Description: Pt will transfer to/from toilet/BSC with moderate assistance for improved ability to safely complete ADLs. Outcome: Ongoing * Plan of Care - JUAN Tadeo - 07/23/2021 2:52 PM EDT Problem: AGRICULTURAL REAL ESTATE AGENT - Language Goal: Establish Yes/No Description: Patient will respond to yes/no questions with a yes/no type response via any modality with maximum cues with 80% accuracy across 1 session to establish a reliable means of communication. Outcome: Ongoing Goal: Command Following Description: Patient will complete simple 1-step commands (minimum of x10) to 70% success with max cues as needed in order to improve direction following for functional gains in ability to participate more independently in care. Outcome: Ongoing Goal: Expressive Language Goal 1 Description: Patient will communicate basic wants/needs via any communication modality on at least 3 opportunities across 1 session to improve functional communication and ability to direct care. Outcome: Ongoing * Plan of Care - Patti Lopez RN - 07/23/2021 11:46 AM EDT Problem: Patient Care Overview Goal: Plan of Care Review Outcome: Ongoing Goal: Individualization & Mutuality Outcome: Ongoing Goal: Discharge Needs Assessment Outcome: Ongoing Goal: Interdisciplinary Rounds/Family Conf Outcome: Ongoing * Medical Student - Merary Heredia - 07/23/2021 11:36 AM EDTSummary: Progress Note Internal Medicine Daily Progress Note Patient: Ignacio Aquino, 1945, [id number] Medical Student: Merary Heredia, MS4 Assessment/Plan: Ignacio Aquino is a 76 y.o. 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 Altered Mental Status, resolving On 07/22, pt was found to have cognitive progress since his discharge after his stroke (07/18/21) withaphasia and inability to follow commands. On 07/23, Mr. Aquino was improved as he was able to followone step commands, answer questions appropriately and move all his extremities. Ddx for AMS includes TIA vs recrudesce of stroke, less likely [place], AMS secondary to infection, seizure, or arrhythmia due to SSS -Consult Neurovascular, appreciate recommendation -Continue ASA 81 mg daily until 07/26, start Apixiban 5mg BID 07/26 -Continue atorvastatin 40mg daily -Interrogate pacemaker C5/C6 fracture with post-traumatic myelopathy Pt has history of weakness in his lower extremity and a neurogenic bladder from previous injury. -Mejía placed in ED, removed 07/23 -Straight cath q6h Hypertension Pt noted to have high blood pressures up to the 190s/90s overnight. Pt has been on lisinopril, nifedipine, and coreg after previous admission for stroke -Resume nifedipine 30mg QDay, lisinopril 20mg daily, and carvedilol 12.5mg q12h Rash Pt has a new scaley rash along neck and jaw line that patient occasionally itches. Ddx includes seborrhoic dermatitis vs eczema vs dry skin -topical hydrocortisone 1% ointment to apply to neck and jaw line BID Chronic Problems: Neuropathy: home gabapentin Depression/anxiety: citalopram DVT PPX: SCDs, to start Eliquis 07/26 Code Status: Full Code Disposition: Discharge back to [facility] as soon as transportation can be arranged Subjective/Interval History: No acute events overnight. Interview was limited by the patient's ability to say simple, short sentences and answer yes/no questions. The patient denied pain or discomfort. Objective: Vitals: 07/23/21 1018 BP: 166/81 Pulse: 59 Resp: 16 Temp: 97.4 F (36.3 C) O2 Device: room air (07/23/21 1018) Gen: NAD, well-appearing HENT: Normocephalic atraumatic, extraocular motion intact Cardio: RRR, normal S1/S2, grade 2 systolic ejection murmur GI: Non-distended MSK: no joint swelling or erythema Ext: warm and well-perfused, no LE edema Skin: Scaly rash along jaw line and neck Neuro: Alert, able to say short phrases but also has unintelligent speech. Appropriately respondingto questions and following one step commands. He was moving all four extremities and moving both arms against gravity. Has good senior oracle developer strength. Able to move ankle but unable to move toes. Data Review: Labs WBC/Hgb/Hct/Plts: 8.34/13.9/40.3/185 (07/23 442) Na/K+/Phos/Mg/Ca: 140/3.6/3.1/2.0/8.7 (07/22 1501-07/23 442) Bun/Creat/Cl/CO2/Glucose: 23/0.90/111/22/84 (07/23 442) Ptt/Pt/Inr: 28.6/15.2/1.2 (07/23 442) 07/22/21 Urine Analysis -Absent bacteria, small amount of blood in urine, small amount of leukocyte esterase, 6-9 WBC, urobilinogen 2.0 -Blood Gas: pH 7.34, pCO2 43, HCO3 23 -TSH 5.620, T4 Free: 1.19 Imaging 07/22/21 CT Stroke Head Alert IMPRESSION: 1. Areas of relative hyperdensity in the left MCA and BIOMETRICIAN territory involving the left basal ganglia, left temporal lobe, and left occipital lobe likely represent enhancing areas of subacute infarction given the recent contrast administration at an outside hospital. These correspond to areas of infarction seen on recent MRI brain dated July 16, 2021. 2. No acute intracranial hemorrhage or new acute large territorial infarct. 3. 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 Findings were discussed with BART Padilla at 3:10 PM on July 22, 2021. 07/22/21 CT Abdomen/Pelvis w/o contrast IMPRESSION: 1. No acute findings in the abdomen or pelvis. 07/22/21 Chest X-Ray IMPRESSION: Cardiomegaly. No acute process. I personally viewed and interpreted these images and I have reviewed and approved this report. Discussed with team and attending, Dr. Jose, on rounds. Signed, Merary Heredia MS4 Associated attestation - Diana Decker MD - 07/24/2021 6:18 AM EDT This wonderful medical student note is for educational purposes only and is not considered part of the legal medical record. Please refer to the resident physician's note from 07/23/2021 for final plan. Diana Decker MD * Plan of Care - Viridiana Gary PT - 07/23/2021 11:24 AM EDT Problem: PT - Transfers Goal: Supine <-> Sit Description: Pt will perform bed mobility with flat bed & no rail with moderate assistance in order to improve functional mobility and safety. Outcome: Ongoing Goal: Sit <-> Stand Description: Pt will perform sit to/from stand transfers with maximal assistance with wheeled walker in order to improve functional mobility and safety. Outcome: Ongoing Goal: Stand-Pivot Description: Pt will perform stand/pivot transfer to/from bed/chair/commode with maximal assistancewith wheeled walker in order to improve functional mobility and safety. Outcome: Ongoing Goal: Strength/ROM Description: Pt will perform 2 sets of 15 repetitions of upper lower bilateral extremity exercises with contact guard assistance in order to improve strength, maintain ROM, necessary for functional mobility. Outcome: Ongoing * Nursing Notes - aCtrachito Pedraza RN - 07/23/2021 6:52 AM EDT ER nurse Ivan calls with report as patient arrives to floor at 0620. Patient placed in room, pictures taken of skin damage to coccyx, rash to left flor, bruising to left upper arm, and appended to chart. Patient speech is incomprehensible, but follows commands, + track and focus, able to move right and left upper extremitiy purposefully. Elevated BP noted on arrival to floor. Patient appears to be in no acute distress at rest, but moans with movement. Unable to quantify pain. Two person skin check completed by this RN with set up and charger Vicenta. * Certification - Christophe Stein MD - 07/22/2021 6:43 PM EDT I certify that this patient requires inpatient services at this time. I anticipate the expected length of stay will include at least two midnights. Inpatient services are due to the following medicalconcerns altered mental status in setting of recent stroke. Plans for post hospitalization care will be discharge to long-term facility. Christophe Stein MD MPH Internal Medicine PGY2 [id number] documented in this [facility] [place] History of Present illness Narrative* KEO Ruiz - 07/24/2021 3:21 PM EDT The following note reflects a discharge planned for Wednesday, 07/25 between [id number]: Social Work Final Discharge Plan and Transportation Final Discharge Planning Discharge Disposition: Inpatient Rehab Facility Services at Discharge: Speech Therapy, Senior Care, Physical Therapy, Occupational Therapy Community Agency Name(s) For Handoff: [facility] Name For Handoff: 4th floor [facility] Phone For Handoff: [phone] Fax For Handoff: [phone] Plan Plan: Discharge to [facility] Patient/Family In Agreement With Plan: yes Transportation Name of Transport Company: Other (Comment) ([facility] [phone]) ETA of Ambulance: [phone] Ambulance Arrived: No Transfer Mode: gurney Mode of Transfer: ambulance, BLS Accompanied By: EMS Patient medically stable for discharge per physician/medical team. SW confirmed with [facility] that they are able to accept the patient on . Insurance pre- certification is not required. SW arranged transport as indicated above, ETA is [phone]. The patient has no specialized equipment needs for transportation. AVS/ANALISA completed from a SW standpoint. SW updated the bedside RN, CCM, facility and patient/equal opportunity representative of the discharge plan and transport time. Patient/Band Director remain in agreement with the discharge plan. Bedside RN to call report and fax AVS/ANALISA. Ambulance form left at the loading unit operator powder charging desk with a request for a printed transfer report. Discharge Instruction for Bedside RN: 1. Confirm the Ambulatory Order is in the ANALISA. 2. Print the ANALISA and AVS. 3. Print the Discharge Summary for facilities (if available). 4. Fax ANALISA, AVS and Discharge Summary (when applicable) to agency or facility. 5. Call the agency or facility for report. LIYAH Torres, [facility] Medical Social Work * Vinny Vargas MD - 07/24/2021 11:33 AM EDT Internal Medicine Daily Progress Note Patient: Ignacio Aquino, 1945, [id number] Medical Student: Merary Heredia MS4 Assessment/Plan: Ignacio Aquino is a 76 y.o. 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 Altered Mental Status, resolving Recent L MCA stroke s/p tPA On 07/22, pt was found to have cognitive progress since his discharge after his stroke (07/18/21) withaphasia and inability to follow commands. Abd distended on arrival, CTAP w/ no acute abnormalities,distension improved w/ bowel regimen. Pt not complaining of abd pain. On 07/23, Mr. Aquino was improved as he was able to follow one step commands, answer questions appropriately and move all his extre mities. Pacemaker interrogation revealed that he had afib when he was altered thus we suspect that his AMS may be 2/2 poor perfusion/TIA from his Afib - Neurovascular signed off -Continue ASA 81 mg daily until 07/26, start Apixiban 5mg BID 07/26 -Continue atorvastatin 40mg daily - UCx grew mixed microbes, pt w/o UTI sx, says his UTI sx include fever, irritability, leg weakness; he is currently experiencing none of these sx and his says he's back to his neuro baseline as of 07/24/21 - defer abx at this time Afib SSS s/p pacemaker CHADVASC 5 - Interrogate pacemaker: 7 AF episodes, longest run lasted 2 days from 07/18-5.8 w/ 90bpm median ventricular rate, AF burden 41%. He has 5 years of service remaining on this pacemaker - eliquis as above - beta tomás as below C5/C6 fracture with post-traumatic myelopathy Pt has history of weakness in his lower extremity and a neurogenic bladder from previous injury. -Mejía placed in ED, removed 07/23 -Bladder scan, straight cath q6h Hypertension Pt noted to have high blood pressures up to the 190s/90s overnight. Pt has been on lisinopril, nifedipine, and coreg after previous admission for stroke -Resume nifedipine 30mg QDay, lisinopril 20mg daily, and carvedilol 12.5mg q12h Rash Pt has a new scaly rash along neck and jaw line that patient occasionally itches. Ddx includes seborrhoic dermatitis vs eczema vs dry skin -topical hydrocortisone 1% ointment to apply to neck and jaw line BID Chronic Problems: Neuropathy: home gabapentin Depression/anxiety: citalopram DVT PPX: SCDs, to start Eliquis 07/26 Code Status: Full Code Disposition: Discharge back to [facility] in AM. Subjective/Interval History: NAEON. updated at bedside, says pt is back to his baseline. She says when he has had UTIs in the past, he gets a fever, leg weakness, and is irritable. She says he is not acting like he has a UTI at the moment. Objective: Vitals: 07/24/21 1013 BP: 143/69 Pulse: 59 Resp: 16 Temp: 97.1 F (36.2 C) O2 Device: room air (07/24/21 1013) Flow (L/min): 0 (07/23/212124) Gen: NAD, well-appearing HENT: Normocephalic atraumatic, extraocular motion intact Cardio: RRR, normal S1/S2, grade 2 systolic ejection murmur GI: Non-distended, no suprapubic tenderness MSK: no joint swelling or erythema Ext: warm and well-perfused, no LE edema Skin: Scaly rash along jaw line and neck Neuro: Alert, able to say short phrases but also has unintelligent speech. Appropriately respondingto questions and following one step commands sometimes. He was moving all four extremities and moving both arms against gravity. Has good senior oracle developer strength. Able to move ankle but unable to move toes. Neuro exam is inconsistent 2/2 pt unable to follow commands at times; however spontaneous movement of all 4 extremities witnessed. Data Review: Labs XR CHEST AP PORTABLE ED Final Result IMPRESSION: Cardiomegaly. No acute process. I personally viewed and interpreted these images and I have reviewed and approved this report. ABDOMEN/PELVIS WITHOUT CONTRAST Final Result IMPRESSION: 1. No acute findings in the abdomen or pelvis. STROKE HEAD-STROKE ALERT ONLY Final Result IMPRESSION: 1. Areas of relative hyperdensity in the left MCA and BIOMETRICIAN territory involving the left basal ganglia, left temporal lobe, and left occipital lobe likely represent enhancing areas of subacute infarction given the recent contrast administration at an outside hospital. These correspond to areas of infarction seen on recent MRI brain dated July 16, 2021. 2. No acute intracranial hemorrhage or new acute large territorial infarct. 3. 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 Findings were discussed with BART Padilla at 3:10 PM on July 22, 2021. I personally viewed and interpreted these images and I have reviewed and approved this report. Associated attestation - Shanika Jose MD - 07/24/2021 2:36 PM EDT Attending Addendum: Chief Complaint: Follow up for the following issues Principal Problem: Altered mental status Active Problems: Spinal cord injury, cervical region Essential hypertension Neuropathic pain Anxiety and depression H/O ischemic left MCA stroke Aphasia I have seen and examined Ignacio Aquino personally during resident rounds 07/24/2021. I interviewed thepatient and reviewed the medical records. I have independently verified the history and physical examination findings as presented in the resident note and I agree with the history, physical exam, and medical assessment and plan with the additions below. I discussed my findings and the therapeutic plan with the resident team and supervised the medical decision making. Plan per resident note. Teaching physician encounter time was 25 minutes with more than 50% spent on counseling/ciqi-ec-wfsg with the patient and/or family Shanika Jose MD, FACP, FAAP Special Event Assistant of Clinical Medicine General Internal Medicine * Marcy Victoria RN - 07/23/2021 5:13 PM EDT Discharge Planning Patient Assessment Admission Assessment Patient Assessment Completed: Yes Anticipated discharge disposition: Senior Care Facility (vs IP Rehab) Reason for Admission: stroke workup Is the patient able to participate in the assessment?: No Explanation of why patient is unable to participate: AMS Information source: Spouse Information Source Name/Contact: Zach Aquino Demographics Verified and Updated: Yes Has the patient been admitted to any hospital in the last 30 days?: Transferred From Outside Hospital ([facility]) Advanced Care Planning Has the patient completed Advance Directives?: Completed, Not Available in Medical Record Copy of Advance Directives was requested?: Yes Advance Directives Requested From: spouse Legal Next of Kin Does the patient have a Guardian?: No Spouse: Yes Name and Contact information: Zach Aquino [phone] Adult Child(meme), List All Adult Children: Yes Name and Contact information: Bartolo Aquino, Bulmaro Aquino, Jersey Aquino (all #s in demographics) Would you like to add additional adult children?: No Reviewed and Updated in Demographics? : Yes Outpatient Providers Does patient have a primary care physician? : Yes When was the patient's last PCP visit?: > 30 days Does the patient follow any specialists?: Yes Reviewed and updated Care Team?: Yes Patient Care Team: Mallory Mcpherson DO as PCP - General (Family Medicine) Ignacio Quan MD as PCP - Referring 1 (Cardiovascular Medicine) Heath Mcdowell MD as PCP - Referring 2 (Neurological Surgery) Caesar Doshi MD (Urology) Environment/Caregivers Is the patient from a facility or prison?: No Patient lives with: Spouse or Partner Living Environment: House How many steps does the patient have to navigate to enter or inside the home? : ramp Does the patient have a first floor set-up with bed and bathroom?: Yes Patient Caregiving Responsibilities: Self Patient-identified caregiver/support network: Family, Friends, Faith Who does the patient identify as a teachable caregiver(s)?: Spouse or Partner Services Does the patient use a home health or hospice agency?: No Current with dialysis?: No Does the patient use any community programs or services?: No Does patient use DME? : quad cane, walker, rollator, shower seat (power w/c) Does the patient use oxygen?: No Does patient use medical supplies? : other Explanation of other supplies: Straight cath supplies How does patient obtain supplies?: supply company Medical Supplier Name and Phone/Fax: [employer] Would you like to add additional medical suppliers?: No Anticipated Changes Related to Illness/Injury? : Unknown at this time Initial ADLs Prior to Arrival What is the patient's baseline physical functioning prior to this acute illness?: assist with ADLs (but still working, driving) What is the patient's baseline cognitive functioning prior to this acute illness?: independent Is the patient's baseline functioning changed by this acute illness? : Unable to assess Concerns with patient being able to care for themselves at home? : Yes Are there therapy or specialists consults?: Yes Select consult type: PT, OT, AGRICULTURAL REAL ESTATE AGENT, Social Work Does the patient's home require any home modifications for discharge? : No CM to recommend therapy or other consults? : No Medication Management Does the patient have prescription insurance coverage? : No (spouse says they use any discount cards that their pharmacy offers if needed) Is the patient on Anticoagulation? : No (he was prescribed something but didn't take it) [employer] [address] [place] [address] [address] [facility] [address] [facility] [address] Floodplain Manager Does the patient or equal opportunity representative express financial concerns? : No Employed?: Yes Coping/Stress Concerns about patient s coping and stress?: Unable to Assess Concerns about patient s caregiver s coping and stress?: No Values and Beliefs Cultural or oriental orthodox practices that may impact discharge planning and/or medical care?: No Initial Discharge Planning Anticipated discharge disposition: Senior Care Facility (vs IP Rehab) Transportation Available for Discharge: Ambulance Anticipated DME: none Anticipated Services at Discharge: Physical Therapy, Occupational Therapy, Senior Care, Speech Therapy, Outpatient follow up Patient Assessment Completed: Yes Risk of Readmission: 5.9 Category Reference: High:16-100 Mod-High:10-16 Mod-Low: 5-10 Low: 0-5 Patient is expected to dc to previous facility in [place]. [facility] [address] [facility] [address] SW consulted and following for return. Marcy GOVEA RN Clinical Dental Hygiene Instructor [phone] Available on secure [employer]. Weekend Dental Hygiene Instructor and Social Work Contacts [facility]: CM: [phone] / SW: [phone] [facility]: CM: [phone] / SW: [phone] Javi: CM: [phone] / SW [phone] Nas CALL (PCU/MICU only): CM: [phone] / SW: [phone] * Vinny Vargas MD - 07/23/2021 4:06 PM EDT Internal Medicine Daily Progress Note Patient: Ignacio Aquino, 1945, [id number] Medical Student: Merary Heredia MS4 Assessment/Plan: Ignacio Aquino is a 76 y.o. 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 Altered Mental Status, resolving Recent L MCA stroke s/p tPA On 07/22, pt was found to have cognitive progress since his discharge after his stroke (07/18/21) withaphasia and inability to follow commands. On 07/23, Mr. Aquino was improved as he was able to followone step commands, answer questions appropriately and move all his extremities. Ddx for AMS includes TIA vs recrudesce of stroke, less likely [place], AMS secondary to infection, seizure, or arrhythmia due to SSS -Consult Neurovascular, appreciate recommendation -Continue ASA 81 mg daily until 07/26, start Apixiban 5mg BID 07/26 -Continue atorvastatin 40mg daily Afib SSS s/p pacemaker CHADVASC 5 - Interrogate pacemaker - eliquis as above - beta tomás as below C5/C6 fracture with post-traumatic myelopathy Pt has history of weakness in his lower extremity and a neurogenic bladder from previous injury. -Mejía placed in ED, removed 07/23 -Bladder scan, straight cath q6h Hypertension Pt noted to have high blood pressures up to the 190s/90s overnight. Pt has been on lisinopril, nifedipine, and coreg after previous admission for stroke -Resume nifedipine 30mg QDay, lisinopril 20mg daily, and carvedilol 12.5mg q12h Rash Pt has a new scaly rash along neck and jaw line that patient occasionally itches. Ddx includes seborrhoic dermatitis vs eczema vs dry skin -topical hydrocortisone 1% ointment to apply to neck and jaw line BID Chronic Problems: Neuropathy: home gabapentin Depression/anxiety: citalopram DVT PPX: SCDs, to start Eliquis 07/26 Code Status: Full Code Disposition: Discharge back to [facility] as soon as transportation can be arranged Subjective/Interval History: NAEON. Feeling better, still nonsensical speech at times. Answers some questions. Follows commands inconsistently. Objective: Vitals: 07/23/21 1447 BP: 160/83 Pulse: 61 Resp: 18 Temp: 97.2 F (36.2 C) O2 Device: room air (07/23/21 1443) Gen: NAD, well-appearing HENT: Normocephalic atraumatic, extraocular motion intact Cardio: RRR, normal S1/S2, grade 2 systolic ejection murmur GI: Non-distended MSK: no joint swelling or erythema Ext: warm and well-perfused, no LE edema Skin: Scaly rash along jaw line and neck Neuro: Alert, able to say short phrases but also has unintelligent speech. Appropriately respondingto questions and following one step commands sometimes. He was moving all four extremities and moving both arms against gravity. Has good senior oracle developer strength. Able to move ankle but unable to move toes. Data Review: Labs WBC/Hgb/Hct/Plts: 8.34/13.9/40.3/185 (07/23 442) Na/K+/Phos/Mg/Ca: 140/3.6/--/--/-- (07/23 442) Bun/Creat/Cl/CO2/Glucose: 23/0.90/111/22/84 (07/23 442) Ptt/Pt/Inr: 28.6/15.2/1.2 (07/23 442) XR CHEST AP PORTABLE ED Final Result IMPRESSION: Cardiomegaly. No acute process. I personally viewed and interpreted these images and I have reviewed and approved this report. ABDOMEN/PELVIS WITHOUT CONTRAST Final Result IMPRESSION: 1. No acute findings in the abdomen or pelvis. STROKE HEAD-STROKE ALERT ONLY Final Result IMPRESSION: 1. Areas of relative hyperdensity in the left MCA and BIOMETRICIAN territory involving the left basal ganglia, left temporal lobe, and left occipital lobe likely represent enhancing areas of subacute infarction given the recent contrast administration at an outside hospital. These correspond to areas of infarction seen on recent MRI brain dated July 16, 2021. 2. No acute intracranial hemorrhage or new acute large territorial infarct. 3. 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 Findings were discussed with BART Padilla at 3:10 PM on July 22, 2021. I personally viewed and interpreted these images and I have reviewed and approved this report. Associated attestation - Shanika Jose MD - 07/24/2021 2:35 PM EDT Attending Addendum: Chief Complaint: Follow up for the following issues Principal Problem: Altered mental status Active Problems: Spinal cord injury, cervical region Essential hypertension Neuropathic pain Anxiety and depression H/O ischemic left MCA stroke Aphasia I have seen and examined Ignacio Aquino personally on 07/23/21. I interviewed the patient and reviewedthe medical records. I have independently verified the history and physical examination findings aspresented in the resident note and I agree with the history, physical exam, and medical assessment and plan with the additions below. I discussed my findings and the therapeutic plan with the resident team and supervised the medical decision making. Plan per resident note. Teaching physician encounter time was 25 minutes with more than 50% spent on counseling/viit-jn-ayou with the patient and/or family Shanika Jose MD, FACP, FAAP Special Event Assistant of Clinical Medicine General Internal Medicine * Krystyna Meade OT - 07/23/2021 3:56 PM EDT Acute Occupational Therapy Evaluation Prior to Admission AM-PAC Score: PRIOR LEVEL AM-PAC Activity Raw Score: 18 Current AM-PAC score(s): CURRENT AM-PAC Activity Raw Score: 10 Based on the above AM-PAC score(s) and OT clinical judgment, discharge destination recommendation is: Inpatient Rehab Facility Discharge Barriers: Patient needs assistance with functional mobility, Patient needs assistance with ADLs, Patient needs assistance with IADLs (see note below) Supporting Factors (would benefit from skilled therapy services): Recent decline in functional mobility, Recent decline in self-care abilities, Recent decline in cognitive function, Fall risk, Assistance needed with functional mobility Mobility equipment available at home: quad cane, power wheelchair, 2 wheeled walker, 4 wheeled walker ADL equipment available at home: shower chair (rolling shower chair) Equipment recommendations for discharge: Current therapy frequency recommendation(s) in acute: 5 times a week Precautions and Weightbearing Status: OT Existing Precautions/Restrictions: fall Patient Safety Communication Prior to Visit: Nursing Respiratory Status O2 Device: room air Subjective: Pt received supine and agreeable to tx. Pt enjoys watching sports. Pain: General Pain Documentation (Adult, OB, Peds) Presence of Pain: denies pain/discomfort Home Setting Residence: House, [facility] Lives With: spouse First floor setup: bedroom (roll in shower) Number of stairs to enter home: ramp Number of stairs in home: 0 Mobility Equipment Available: quad cane, power wheelchair, 2 wheeled walker, 4 wheeled walker ADL Equipment Available: shower chair (rolling shower chair) Home Environment Details: Pt's reports pt was able to use WW to complete stand pivot transfer to power chair, also able to ambulate short distances using 2 quad canes Previous Level of Function Prior level ADL Overview: Needs assist Dominant Hand: Right Bathing: needs device Upper Body Dressing: needs assist (min A) Lower Body Dressing: needs assist (max A) Grooming: needs assist Toileting: needs assist Eating: independent Bed Mobility/Transfers: independent Ambulation Skills: needs device Assistive Device: quad cane (bilat quad canes) Level of Ambulation: household Prior Level of Function Details: PER CHART REVIEW on 07/13/2021: Pt unable to provide prior level but son reports patient uses power wheelchair in home for mobility but able to complete bed mobility and transfers to chair without assist. pt assist with ADLs, pt has a anil in shower with shower chair. Pt uses bilateral quad canes for mobility in/out of house to car and patient was driving. 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 Pt with increased fatigue during functional tasks requiring brief rest breaks x 5 to manage fatigue. Vision Screen Currently wearing corrective lenses: Bi-focal, Yes Vision History: decreased visual field OD per prior to stroke Speech Speech: word-finding difficulties Successful Methods (Communication Strategies): verbal speech (difficult to understand to complete task) Hearing Hearing: no gross deficits noted Cognition Overall Cognitive Status: Impaired Arousal/Alertness: Appropriate responses to stimuli Orientation Level: Oriented to person Following Commands: Follows one step commands with increased time, Follows one step commands with repetition Safety Judgment: Decreased awareness of need for assistance, Decreased awareness of need for safety Awareness of Errors: Assistance required to correct errors made, Assistance required to identify errors made Deficits: Decreased awareness of deficits Attention Span: Difficulty dividing attention, Attends with cues to redirect ADLs: ADL Assessment: Grooming Deficit ADL Anticipated Performance (ADLs not directly observed this session): Eating, Bathing, UE Dressing, LE Dressing, Toileting Eating Assistance: Moderate Grooming Assistance: Moderate Grooming Location: bed level Bathing Assistance: Maximal UE Dressing Assistance: Maximal LE Dressing Assistance: Total Toilet Assistance: Total Extremity Assessments: RUE Assessment RUE Assessment: AROM WFL, Strength Impaired RUE Strength RUE Overall Strength: (3+/5 throughout) LUE Assessment LUE Assessment: AROM WFL, Strength Impaired LUE Strength LUE Overall Strength: (3/5 throughout) Neuro: Gross Coordination Gross Coordination: (RUE grossly WFL for basic ADLs) Fine Motor Coordination Additional Documentation: Yes Fine Motor Coordination Left Hand, Manipulation of Objects: mild impairment Right Hand, Manipulation of Objects: mild impairment Outcome Score(s): CURRENT [facility] Daily Activity Inpatient Short Form Putting on/Taking Off Lower Body Clothin - Total Assistance Bathin - A Lot of Assistance Toiletin - Total Assistance Putting on/Taking Off Upper Body Clothin - A Lot of Assistance Groomin - A Lot of Assistance Eatin - A Lot of Assistance CURRENT [facility] Activity Raw Score: 10 CURRENT -[facility] Activity Functional Limitation/Modifier: 74.70% Currently Impaired in Daily Activity- CL Assessment & Plan: Patient was admitted for altered mental status and seen for therapy evaluation related to decline in self care status and basic mobility. Exam findings include impairments in: aerobic capacity, attention, balance, cognitive impairments, endurance, motor function, strength, transfers. These impairments contribute to occupational performance limitations including bathing, dressing, grooming, toileting, functional mobility, ADL transfers, home management tasks. The following factors impact the plan of care: decreased functional endurance Patient will benefit from skilled occupational therapy to address these impairments, occupational performance limitations, and participation restrictions. Patient's rehab potential is: good, to achieve stated therapy goals. Planned Therapy Interventions (OT Eval): ADL retraining, balance training, bed mobility training, cognitive training, fine motor coordination training, functional activity tolerance, strengthening, transfer training Patient Instruction/Education this session: Patient Instruction: OT role and plan of care Plan for next session: seated grooming Acute OT Goals Plan of Care by Krystyna Meade OT at 07/23/2021 3:56 PM Version 1 of 1 Problem: OT - Dressing Goal: Upper Body Dressing Description: Pt will complete UE dressing task Edge of bed with standby assistance for improved ability to complete self-care activities. Outcome: Ongoing Problem: OT - ADLs Goal: Grooming Description: Pt will complete grooming Edge of bed with standby assistance for improved ability to safely complete ADLs. Outcome: Ongoing Problem: OT - Balance Goal: Balance - Seated Description: Pt will perform 10 minutes of ADL routine in sitting with contact guard assistance andbalance level of contact guard to promote safety during self-care activities. Outcome: Ongoing Problem: OT - Transfers Goal: Transfers Toilet/Bedside Commode Description: Pt will transfer to/from toilet/BSC with moderate assistance for improved ability to safely complete ADLs. Outcome: Ongoing Evaluating Therapist: Krystyna Meade OT Additional Details: Co-evaluation/co-treatment performed?: No simultaneous skilled care performed I used facemask, protective eye shield, and gloves in today's patient interaction. OT Evaluation Complexity Occupational Profile and Client History: Moderate - expanded history Assessment of Occupational Performance: Moderate (3-5 performance deficits) Clinical Decision/Performance Deficits: Moderate (detailed assessments w/several treatment options) Time In: 1556 Time Out: 1621 Total Visit Time: 25 minutes Total Treatment Time (skilled, billable minutes): 25 minutes Patient location at end of session: bed with head of bed elevated Alarms on at end of session: bed alarm Needs in reach. Upon discontinuation of Acute Care Occupational Therapy Services or patient discharge from the hospital this note represents the current Occupational Therapy Discharge Summary. * JUAN Tadeo - 07/23/2021 3:03 PM EDT Acute Care AGRICULTURAL REAL ESTATE AGENT Speech/Language/Cognitive Evaluation Discharge Recommendations: Based on the below outcome measures/assessment score(s) and AGRICULTURAL REAL ESTATE AGENT clinicaljudgment, discharge destination recommendation is: Senior Care Facility return Acute AGRICULTURAL REAL ESTATE AGENT Outcomes Tracking Communicate basic wants and needs?: no Demo insight/appreciation of deficits?: unable to determine Complete basic problem solving?: unable to determine Current therapy frequency recommendation in acute: Speech/Lang/Cog Therapy Frequency: 3 times a week Swallow Therapy Frequency: no therapy warranted Clinical Impression: Ignacio Aquino presents with ongoing non-fluent asphasia, most consistent with Wernicke's aphasia. These deficits result in functional limitations in communicating wants and needs. Patient's language abilities are consistent with previous speech-language evaluation completed on 07/12/21. Patient would benefit from ongoing AGRICULTURAL REAL ESTATE AGENT services to address noted deficits. Plan to discharge to SNF. Patient Instruction/Education this session: education completed with patient's , she stated sheunderstood plan for ongoing speech therapy services at next level of care. Plan for next session: Address yes/no questions and establish some form of expressive communication. Subjective: Patient was seen at bedside, alert and cooperative. Notably aphasic. Patient's wasat bedside. Pain: General Pain Documentation (Adult, OB, Peds) Presence of Pain: non-verbal indicator of pain/discomfort not present Patient History Comments: Ignacio Aquino is a 76 y.o. male who presents with altered mental status. PMH of recent L MCA stroke s/p tPA 07/12/21 (discharged 07/18/21), acomm aneurysm, afib not on AC, SSSs/p pacemaker, HTN, C6 fracture c/b post-traumatic myelopathy and incomplete tetraplegia (vasovagalepisode 01/2016), neurogenic bladder and bowel, depression, and anxiety Mr. Aquino was recently admitted 07/12-07/18/21 for L MCA stroke (received tPA), with acomm aneurysm detected on imaging during that admission. Scheduled for outpt Neurosurgery follow-up. Per son, the patient's cognitive abilities have been improving. Over the past several days, has been speaking in incomplete sentences and asking simple questions (ex: Where [grandkid]? w/o linking verb). Is able to read some words from food menu at SNF and say the name of food item he wants. Prior AGRICULTURAL REAL ESTATE AGENT history: 07/12/21 Speech-Language Evaluation: Ignacio Aquino presents with non fluent asphasia, most consistent with Wernicke's aphasia. These deficits result in functional limitations in communicating wants and needs. Throughout evaluation, pt consistently counting and stating numbers, as well as intermittently speaking in [place] (per family at bedside, reports that he is not making sense in [place] either). Able to complete automatic speech task of counting, however unable to complete any other automatic speech task. Pt occasionally would respond hi and thank you appropriatelyin conversation. Able to intermittently follow commands, however requires max cues. Unable to answer yes/no questions consistently. Unable to repeat. Attempted reading task, however pt began countingduring reading task. Family also report pt with decreased vision in one eye (unable to report whicheye). Unable to assess cognition due to aphasia. No signs of dysarthria or apraxia. Pt would benefit from ongoing AGRICULTURAL REAL ESTATE AGENT services to address noted deficits and assist pt in communicating wants and needs Prior Level of Function: Residence: House, [facility] Lives With: spouse Respiratory Status: Room Air EXPRESSIVE LANGUAGE: Impaired Task: Imitates Gestures Impaired Automatic Speech Impaired (able to count 1-20, unable to complete other automatic sequences and perseverated on counting.) Phrase Completion Impaired Confrontation Naming Impaired (0/4 confrontational naming) Answering 'wh' Questions Repetition Impaired Verbalize Basic Wants and Needs Impaired Functional Participation in Conversation Impaired Expressive Language Characteristics: Non-Fluent, Phonemic Paraphasia and Semantic Paraphasia RECEPTIVE LANGUAGE: Impaired Task: Identify Functional Objects Impaired Follow 1-Step Commands Impaired Follow 2+ Step Commands Unable to assess Answers Basic Y/N Questions Impaired (able to complete with yes/no for own name: 4/4, unable to complete further y/n) Conversational Comprehension Impaired READING: Unable to assess WRITING: Unable to assess SOCIAL INTERACTION/PRAGMATICS: Unable to assess CRANIAL NERVE EXAMINATION: Cranial Nerve Exam CN V (Trigeminal) normal blink CN VII (Facial) strong bilateral movement of upper and lower face CN IX (glossopharyngeal) voice quality strong and clear CN X (Vagus) not tested CN XI (Accessory) raises head off pillow without difficulty CN XII (Hypoglossal) clearly articulated speech MOTOR SPEECH TASKS: Intact Task: Speech Intelligibility Intact VOCAL PARAMETERS: Task: Vocal Quality WDL Acute AGRICULTURAL REAL ESTATE AGENT Goals Plan of Care by Afua Sagastume AGRICULTURAL REAL ESTATE AGENT at 07/23/2021 2:52 PM Version 1 of 1 Problem: AGRICULTURAL REAL ESTATE AGENT - Language Goal: Establish Yes/No Description: Patient will respond to yes/no questions with a yes/no type response via any modality with maximum cues with 80% accuracy across 1 session to establish a reliable means of communication. Outcome: Ongoing Goal: Command Following Description: Patient will complete simple 1-step commands (minimum of x10) to 70% success with max cues as needed in order to improve direction following for functional gains in ability to participate more independently in care. Outcome: Ongoing Goal: Expressive Language Goal 1 Description: Patient will communicate basic wants/needs via any communication modality on at least 3 opportunities across 1 session to improve functional communication and ability to direct care. Outcome: Ongoing I was assisted by patient's for today's session. and I used facemask, protective eye shield, and gloves in today's patient interaction. Speech Language Pathologist: JUAN Tadeo Time In: 1345 Time Out: 1420 Total Visit Time: 35 minutes Total Treatment Time (skilled, billable minutes): 35 minutes Patient location at end of session: bed with head of bed elevated Alarms on at end of session: bed alarm Needs in reach. Upon discontinuation of Acute Care Speech Therapy Services or patient discharge from the hospital this note represents the current Speech Therapy Discharge Summary * JUAN Tadeo - 07/23/2021 2:54 PM EDT Acute Care Speech-Language Pathology Clinical Swallow Evaluation Diet recommendation: Recommended Method of Nutrition: PO Recommended Diet Grade: regular Recommended Liquid Consistency: liquid- thin (IDDSI 0) Recommended Medication Administration (as appropriate per MD): Per patient preference Type of Cues/Supervision: none Assistance: independent Discharge Recommendations: Based on the below outcome measures/assessment score(s) and AGRICULTURAL REAL ESTATE AGENT clinicaljudgment, discharge destination recommendation is: [facility] Current therapy frequency recommendation in acute care: Swallow Therapy Frequency: no therapy warranted Acute AGRICULTURAL REAL ESTATE AGENT Outcomes Tracking Communicate basic wants and needs?: no Demo insight/appreciation of deficits?: unable to determine Complete basic problem solving?: unable to determine Date of Admission: 07/22/2021 Date of Evaluation: 07/23/2021 Attending Physician: Shanika Jose MD General Patient Information Name: Ignacio Aquino Gender: male Date of : 1945 Primary Diagnosis: No diagnosis found. Past Medical History: Diagnosis Date Anemia Central cord syndrome HTN (hypertension) Obesity Past Surgical History: Procedure Laterality Date PLACEMENT CATH SELECTIVE INTERNAL CAROTID ARTERY W/ ANGIO IPSILAT INTRACRANIAL CAROTID W/ RAD S&I N/A 07/15/2021 Laterality: N/A; Surgeon: Bill Serrato MD; Location: [facility] MAIN OR PACEMAKER PLACEMENT N/A 02/18/2015 Laterality: N/A; Surgeon: Colton Daly MD; Location: [facility] CERVICAL FUSION C6/C7 Pain: General Pain Documentation (Adult, OB, Peds) Presence of Pain: non-verbal indicator of pain/discomfort not present Patient History Comments: Ignacio Aquino is a 76 y.o. male who was admitted on 07/22/2021 with altered mental status. PMH of recent L MCA stroke s/p tPA 07/12/21 (discharged 07/18/21), acomm aneurysm, afib not on AC, SSSs/p pacemaker, HTN, C6 fracture c/b post-traumatic myelopathy and incomplete tetraplegia (vasovagalepisode 01/2016), neurogenic bladder and bowel, depression, and anxiety Mr. Aquino was recently admitted 07/12-07/18/21 for L MCA stroke (received tPA), with acomm aneurysm detected on imaging during that admission. Scheduled for outpt Neurosurgery follow-up. Per son, the patient's cognitive abilities have been improving. Over the past several days, has been speaking in incomplete sentences and asking simple questions (ex: Where [grandkid]? w/o linking verb). Is able to read some words from food menu at [facility] and say the name of food item he wants. Prior AGRICULTURAL REAL ESTATE AGENT history: 07/12/21 Speech-Language Evaluation: Ignacio Aquino presents with non fluent asphasia, most consistent with Wernicke's aphasia. These deficits result in functional limitations in communicating wants and needs. Throughout evaluation, pt consistently counting and stating numbers, as well as intermittently speaking in [place] Gren[place] (per family at bedside, reports that he is not making sense in [place] Grenadian either). Able to complete automatic speech task of counting, however unable to complete any other automatic speech task. Pt occasionally would respond hi and thank you appropriatelyin conversation. Able to intermittently follow commands, however requires max cues. Unable to answer yes/no questions consistently. Unable to repeat. Attempted reading task, however pt began countingduring reading task. Family also report pt with decreased vision in one eye (unable to report whicheye). Unable to assess cognition due to aphasia. No signs of dysarthria or apraxia. Pt would benefit from ongoing AGRICULTURAL REAL ESTATE AGENT services to address noted deficits and assist pt in communicating wants and needs Current Method of Nutrition: Route of Nutrition: No alternative means Respiratory Status: O2 Sat (%): 96 % (07/23 1446) O2 Device: room air (07/23 1442) Subjective: Patient was seen at bedside, alert and notably aphasic. Patient's was at bedside and endorsed he was eating a regular diet and thin liquid at SNF. Exam limited by cognition: Yes Objective Evaluation Oral Motor: Cranial Nerve Exam CN V (Trigeminal) normal blink CN VII (Facial) strong bilateral movement of upper and lower face CN IX (Glossopharyngeal) voice quality strong and clear CN X (Vagus) not tested CN XI (Accessory) raises head off pillow without difficulty CN XII (Hypoglossal) clearly articulated speech Vocal Quality: WDL GRBAS: A perceptual rating scale for voice parameters Rating scale of 0 to 3 0 = no impairment 1 = minimal to mild impairment 2 = moderate impairment 3 = severe impairment Positioning: High Carr's (60-90 degrees) Anticipatory Phase: Intact Foods and Liquids Trialed Modality Amount Ice, Thin Teaspoon, Straw, Consecutive Drinks, Self-fed, AGRICULTURAL REAL ESTATE AGENT-fed ~5 oz Dysphagia- pureed (IDDSI 4) Teaspoon, AGRICULTURAL REAL ESTATE AGENT-fed 5x tsp Regular solid Self-fed 1 cracker Oral Phase Function Comments Oral Mucosa Intact Dentition Natural teeth Labial Closure Intact Mastication Intact Oral Stasis Absent Cough before the swallow Absent Oral Phase Summary: Functional oral phase of the swallow. Pharyngeal Phase Function Comments Perceived Swallow Present Cough Response No Throat Clear No Subjective Complaint of Residue Absent Pharyngeal Phase Summary: Presumed functional pharyngeal phase of the swallow. There were no concerns for aspiration over the course of the session. Emma Swallow Screen: (administered by: RN) [place] Swallow Screening Screening Exclusion Criteria: none, continue with Emma Swallow Screening Cognitive Screen: Orientation: disoriented Cognitive Screen: Command Following: unable to to follow commands Oral Motor Function : oral motor dysfunction 3 oz. Water Swallow Challenge : deferred per clinical judgement [place] Swallow Screening Result: failed=NPO Voice and Swallow Outcomes: Functional Oral Intake Scale: Level 7 - Total oral intake with no restrictions Clinical Impression: Ignacio Aquino presents with functional oral and pharyngeal phases of the swallow in the setting of remote LMCA stroke s/p tPA on 07/12/21, recently discharged 07/18/21. Patient demonstrated functional bolus control and mastication. There were no concerns for aspiration. Recommend a regular diet and thin liquids, medications as tolerated. No further skilled speech therapy services. Goals 1) Patient will demonstrate understanding regarding Speech-Language Pathology evaluation results and recommendations. Goal met Speech Language Pathologist: Afua Sagastume AGRICULTURAL REAL ESTATE AGENT, BCS-S Board Certified Specialist in Swallowing and Swallowing Disorders Available via [employer] Chat Time In: 1345 Time Out: 1420 Total Visit Time: 35 minutes Total Treatment Time (skilled, billable minutes): 35 minutes I used gloves, facemask and protective eye shield in today's patient interaction. I was assisted by patient's during this visit. Patient location at end of session: bed with head of bed elevated Alarms on at end of session: none Needs in reach: Yes Upon discontinuation of Acute Care Speech Therapy Services or patient discharge from the hospital this note represents the current Speech Therapy Discharge Summary ' * KEO Ruiz - 07/23/2021 2:41 PM EDT Placement Plan Expected Discharge Date: 07/24/2021 Referred Level of Care: IPR Patient Choice for Post-Acute Providers Resumption of care?: Yes Patient Offered Choice List: Yes - Patient Declined, Remaining with Existing Provider Establishing care?: No Level of care for choice: Inpatient Rehab Preferred geographic region: Discussed and honored Source of list: Aidin List was provided to: Spouse, Patient Method of delivery: In Person Is the provider part of a joint venture or have a financial relationship with discharging hospital?: No Barriers: Transport Current Referrals and Status 1. [facility] Inpatient Rehab (reserved) Patient is reserved at [facility]. [facility] advised this that they can admit patient when medically ready. [facility] will arrange ambulance transport. BUZZ updated the team. Addendum 1600 [facility] scheduled the first available transport for Wednesday, 07/28 between [phone] via [employer]. BUZZ updated family, team, and IPR. Dionicio Álvarez PHYSICS PROFESSOR, [facility] Medical Social Work * Viridiana Gary, PT - 07/23/2021 11:31 AM EDT Acute Physical Therapy Evaluation Prior to Admission [facility] score(s): PRIOR LEVEL AM-PAC Mobility Raw Score: 21 Current AM-PAC score(s): CURRENT AM-PAC Mobility Raw Score: 7 Based on the above AM-PAC score(s) and PT clinical judgment, patient is a good candidate for discharge to [facility] Discharge Barriers: Patient needs assistance with functional mobility Mobility equipment available at home: quad cane, power wheelchair, 2 wheeled walker, 4 wheeled walker ADL equipment available at home: shower chair (rolling shower chair) Equipment needed for discharge: to be determined Current therapy frequency recommendation in acute: Therapy Frequency: 3 times a week Precautions and Weightbearing Status: Existing Precautions/Restrictions: fall Patient Safety Communication Prior to Visit: Nursing Respiratory Status O2 Device: room air Subjective: Pt alert with eyes open and vocalizing (most unintelligible) throughout session, however patient did state clearly Thank you at end of PT session. Pain: General Pain Documentation (Adult, OB, Peds) Presence of Pain: non-verbal indicator of pain/discomfort not present Home Setting Residence: House, [facility] Lives With: spouse First floor setup: bedroom (roll in shower) Number of stairs to enter home: ramp Number of stairs in home: 0 Mobility Equipment Available: quad cane, power wheelchair, 2 wheeled walker, 4 wheeled walker ADL Equipment Available: shower chair (rolling shower chair) Home Environment Details: pt unable to provide prior level due to aphasia, subjective gathered fromchart review Previous Level of Function Ambulation Skills: needs device Assistive Device: quad cane (bilat quad canes) Level of Ambulation: household Prior Level of Function Details: PER CHART REVIEW on 07/13/2021: Pt unable to provide prior level but son reports patient uses power wheelchair in home for mobility but able to complete bed mobility and transfers to chair without assist. pt assist with ADLs, pt has a anil in shower with shower chair. Pt uses bilateral quad canes for mobility in/out of house to car and patient was driving. 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 Objective/Observation: Vitals/Vitals Responses to Treatment: vital signs stable per staff nurse and pt tolerated session well Cognition Overall Cognitive Status: Impaired Arousal/Alertness: Inconsistent responses to stimuli Orientation Level: Oriented to person (unable to report his name, but responds to his name) Following Commands: Follows one step commands with increased time, Follows one step commands with repetition Vision Screen Currently wearing corrective lenses: Reading only Speech Speech: word-finding difficulties (nonsensible speech mostly) Hearing Hearing: no gross deficits noted Extremity Assessments: RUE Assessment RUE Assessment: (grossly at least 3/5) LUE Assessment LUE Assessment: (grossly at least 3/5) RLE Assessment RLE Assessment: (grossly at least 2-3/5) LLE Assessment LLE Assessment: (grossly at least 2-3/5) Sensation Overall Sensation: (difficult to assess) Skin Integrity Skin Integrity Description: WFL (visible areas) Edema Edema: present Location: bilat LE's Mobility Assessment: Rolling/Turning Mobility [place] Level: Rolling/Turning: maximum assist (25% patient effort) Scooting Bridging Mobility [place] Level: Scooting/Bridging: dependent (less than 25% patient effort) Physical Assist: Scooting/Bridgin person assist Supine to Sit Mobility [place] Level: Supine->Sit: maximum assist (25% patient effort) Physical Assist: Supine->Sit: 2 person assist Bed Features/Set-up: Supine->Sit: Use of bed rail, Head of bed elevated Sit to Supine Mobility [place] Level: Sit->Supine: maximum assist (25% patient effort) Physical Assist: Sit->Supine: 2 person assist Bed Features/Set-up: Sit->Supine: Flat Balance: Sitting Balance Static Sitting-Level of Assistance: Contact guard Dynamic Sitting-Level of Assistance: Moderate assistance Transfer Assessment: Sit to Stand Transfer [place] Level: Sit->Stand: (attempted with max assist x 2 but unable to achieve more than 1/4 standing) Outcome Score(s): CURRENT AM-PAC Basic Mobility Inpatient Short Form Turning over in bed: 2 - A Lot of Assistance Sitting/standing from chair: 1 - Total Assistance Moving from lying on back to sittin - Total Assistance Moving to and from bed to chair: 1 - Total Assistance Walk in hospital room: 1 - Total Assistance Climbing 3-5 steps with a railin - Total Assistance CURRENT AM-PAC Mobility Raw Score: 7 CURRENT AM-[facility] Mobility Functional Limitation/Modifier: 92.36% Currently Impaired in Basic Mobility- CM Assessment & Plan: Patient was admitted for H of recent L MCA stroke s/p tPA 07/12/21 (discharged 07/18/21), acomm aneurysm, afib not on AC, SSS s/p pacemaker, HTN, C6 fracture c/b post-traumatic myelopathy and incomplete tetraplegia (vasovagal episode 01/2016), neurogenic bladder and bowel, depression, and anxiety who presents with altered mental status and seen for therapy evaluation related to functional mobility/decreased strength, 2 person assist for supine-sit. Exam findings include impairments in: Strength, ROM (range of motion), Balance, Transfers, Aerobic capacity/endurance, Gait/Locomotion. These impairments contribute to functional limitations including Decreased ambulation distance/endurance, Increased fall risk, Difficulty with bed mobility, Difficu lty with transfers, Decreased functional mobility. Current clinical presentation is Evolving - changing/inconsistent clinical characteristics (Moderate). Patient history factors impacting Plan Of Care include . Patient will benefit from skilled physical therapy to address these impairments, functional limitations, and participation restrictions andhas good rehab potential to achieve therapy goals. Planned Therapy Interventions: balance training, bed mobility training, endurance, functional activity tolerance, gait training, ROM, strengthening, transfer training Plan for next session: Continue to progress mobility, attempt out of bed to chair with 2 person assist Acute PT Goals Plan of Care by Viridiana Gary PT at 07/23/2021 11:24 AM Version 1 of 1 Problem: PT - Transfers Goal: Supine <-> Sit Description: Pt will perform bed mobility with flat bed & no rail with moderate assistance in order to improve functional mobility and safety. Outcome: Ongoing Goal: Sit <-> Stand Description: Pt will perform sit to/from stand transfers with maximal assistance with wheeled walker in order to improve functional mobility and safety. Outcome: Ongoing Goal: Stand-Pivot Description: Pt will perform stand/pivot transfer to/from bed/chair/commode with maximal assistancewith wheeled walker in order to improve functional mobility and safety. Outcome: Ongoing Goal: Strength/ROM Description: Pt will perform 2 sets of 15 repetitions of upper lower bilateral extremity exercises with contact guard assistance in order to improve strength, maintain ROM, necessary for functional mobility. Outcome: Ongoing Evaluating Therapist: Viridiana Gary PT Additional Details: Co-evaluation/co-treatment performed?: No simultaneous skilled care performed I was assisted by GIANNA Zamarripa for today's session. and I used facemask, protective eye shield, and gloves in today's patient interaction. Evaluation Complexity Components History: Moderate (1-2 personal factors and/or comorbidities) Body Systems Review: Moderate (Addressing a total of 3 or more elements) Clinical Presentation: Evolving - changing/inconsistent clinical characteristics (Moderate) Clinical Decision Making: Moderate Time In: 803 Time Out: 819 Total Visit Time: 16 minutes Total Treatment Time (skilled, billable minutes): 16 minutes Patient location at end of session: bed with head of bed elevated and RN aware Alarms on at end of session: bed alarm and RN aware Needs in reach. Upon discontinuation of Acute Care Physical Therapy Services or patient discharge from the hospitalthis note represents the current Physical Therapy Discharge Summary. * Mandi Muro APRN-DIVINE - 07/23/2021 7:24 AM EDT Neurovascular update: Please see the consult note by DIVINE Felix for a detailed note. Patient was seen and examined with stroke attending Dr. Edwards. He appears to be at or better than hisneurologic baseline from prior. No further imaging needed as this will not change mngt. Recommendations: -continue ASA 81 mg daily until 07/26 -start Apixiban 5 mg BID on 07/26 -continue Atorvastatin 40 mg daily -No further work up from stroke perspective Provider NIH Stroke Scale NIH Interval (Provider): daily NIH Level of Conciousness (Provider): 0 NIH LOC Questions (Provider): 0 NIH LOC Commands (Provider): 1 NIH Best Gaze (Provider): 0 NIH Visual (Provider): 0 NIH Facial Palsy (Provider): 0 NIH Left Arm Motor (Provider): 0 NIH Right Arm Motor (Provider): 0 NIH Left Leg Motor (Provider): 3 NIH Right Leg Motor (Provider): 3 NIH Limb Ataxia (Provider): 0 NIH Sensory (Provider): 0 NIH Best Language (Provider): 2 NIH Dysarthria (Provider): 0 NIH Extinction and Inattention (Provider): 0 NIH Total Score (Provider): 9 This plan was discussed with stroke attending Dr. Edwards and has been communicated to the ED team. Neurovascular team will sign off. Please call with any questions. BART Galvan 07/23/2021 11:39 AM * John Roach, [facility] - 07/22/2021 8:53 PM EDT Department of Pharmacy Admission Medication Reconciliation Note Patient: Ignacio Aquino Room/Bed: E038/E038 The patient's allergies were not assessed at this time, and I have reviewed the patient's home medication list with the following sources records from [facility] (scanned into [employer]) & contacted [facility] to confirm current gabapentin dosing strategy. All changes to the home medication list have been updated in [facility]. Updated RESEARCH PROGRAMMER Med List: Prior to Admission Medications Prescriptions DISABILITY PLACARD Sig: Disability placard end date 04/10/2019 Lactobacillus tablet Sig: Take 1 tablet by mouth daily. Magnesium Hydroxide (MILK OF MAGNESIA PO) Sig: Take 30 mL by mouth every 72 hours as needed. Menthol-Zinc Oxide (CALMOSEPTINE EX) Sig: Apply 1 Application topically 2 times daily. Methenamine Hippurate 1 g Tab Sig: take 1 g by mouth daily.. NIFEdipine 30 MG (OSM) tablet XL Sig: Take 30 mg by mouth daily. Nutritional Supplements (ENSURE COMPLETE PO) Sig: take 1 Can by mouth 4 times daily. Tamsulosin HCl 0.4 MG Cap Sig: take 1 capsule by mouth at bedtime. acetaminophen (EQ Acetaminophen) 500 MG tablet Sig: Take 1,000 mg by mouth every 6 hours as needed for Mild Pain. apixaban 5 MG tablet Sig: Take 5 mg by mouth every 12 hours. aspirin 81 MG Chew Tab chewable tablet Sig: Chew 1 tablet daily for 8 days. atorvastatin 40 MG tablet Sig: Take 1 tablet by mouth at bedtime. baclofen 10 MG tablet Sig: Take 10 mg by mouth at bedtime. bisacodyl 10 MG Suppository suppository Sig: Insert 10 mg rectally once as needed for Constipation. If no results from MOM within 8 hours, administer bisacodyl (Dulcolax). If no results from bisacodyl in 4 hours, administer soap suds enema. carveDILOL 12.5 MG tablet Sig: Take 1 tablet by mouth every 12 hours. citalopram 40 MG Tab Sig: take 1 tablet by mouth at bedtime. ferrous sulfate 325 (65 Fe) MG Tab DR tablet Sig: Take 325 mg by mouth 3 times daily with meals. finasteride 5 MG Tab Sig: take 5 mg by mouth daily.. gabapentin 100 MG Cap Sig: take 2 capsules by mouth 3 times daily. Patient taking differently: Take 100 mg by mouth 2 times daily with meals. ketoconazole 2 % Cream cream Sig: Apply 1 Application topically 2 times daily. lisinopril 20 MG tablet Sig: Take 20 mg by mouth daily. melatonin 3 MG Tab Sig: take 3 mg by mouth at bedtime.. nystatin [id number] UNIT/GM Powder powder Sig: Apply 1 Application topically 3 times daily. potassium chloride 20 MEQ Tab CR tablet Sig: Take 20 mEq by mouth daily. senna 8.6 MG tablet Sig: Take 17.2 mg by mouth daily. Facility-Administered Medications: None Other Comments: - Aspirin therapy ordered to go through 07/26 at inpatient rehab facility. Then, apixaban therapy seemed to be the intended therapy starting on 07/27. Apixaban therapy thereby had not been started. This seems aligned with neurovascular discharge instructions from recent hospitalization. - Gabapentin dosing was in the process of being titrated downwards at inpatient rehab facility. Recent dosing was 200 mg three times daily (last dose 06:30 this morning) with the plan to further decrease therapy to 100 mg twice daily with meals starting this evening. Please feel free to contact me with any further questions. John Roach, Jaylyn, BRYSON, BCCCP, BCPS Specialty Practice Pharmacist - Emergency Medicine Pager: [phone] Portable Phone: [phone] Date/Time: 07/22/2021 8:53 PM Time Spent: 20 minutes documented in this [facility]* Plan of Care - Catrachito Pedraza RN - 07/24/2021 6:10 AM EDT Problem: Patient Care Overview Goal: Plan of Care Review Outcome: Ongoing Goal: Individualization & Mutuality Outcome: Ongoing Goal: Discharge Needs Assessment Outcome: Ongoing Goal: Interdisciplinary Rounds/Family Conf Outcome: Ongoing Problem: PT - Transfers Goal: Supine <-> Sit Description: Pt will perform bed mobility with flat bed & no rail with moderate assistance in order to improve functional mobility and safety. Outcome: Ongoing Goal: Sit <-> Stand Description: Pt will perform sit to/from stand transfers with maximal assistance with wheeled walker in order to improve functional mobility and safety. Outcome: Ongoing Goal: Stand-Pivot Description: Pt will perform stand/pivot transfer to/from bed/chair/commode with maximal assistancewith wheeled walker in order to improve functional mobility and safety. Outcome: Ongoing Goal: Strength/ROM Description: Pt will perform 2 sets of 15 repetitions of upper lower bilateral extremity exercises with contact guard assistance in order to improve strength, maintain ROM, necessary for functional mobility. 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 Outcome: Ongoing Goal: Command Following Description: Patient will complete simple 1-step commands (minimum of x10) to 70% success with max cues as needed in order to improve direction following for functional gains in ability to participate more independently in care. Outcome: Ongoing Goal: Expressive Language Goal 1 Description: Patient will communicate basic wants/needs via any communication modality on at least 3 opportunities across 1 session to improve functional communication and ability to direct care. Outcome: Ongoing Problem: OT - Dressing Goal: Upper Body Dressing Description: Pt will complete UE dressing task Edge of bed with standby assistance for improved ability to complete self-care activities. Outcome: Ongoing Problem: OT - ADLs Goal: Grooming Description: Pt will complete grooming Edge of bed with standby assistance for improved ability to safely complete ADLs. Outcome: Ongoing Problem: OT - Balance Goal: Balance - Seated Description: Pt will perform 10 minutes of ADL routine in sitting with contact guard assistance andbalance level of contact guard to promote safety during self-care activities. Outcome: Ongoing Problem: OT - Transfers Goal: Transfers Toilet/Bedside Commode Description: Pt will transfer to/from toilet/BSC with moderate assistance for improved ability to safely complete ADLs. Outcome: Ongoing Admitted for altered mental status, s/p embolic stroke at end of June. Condom cath applied overnight after patient noted to be dribbling urine and straight cath yielded 200 cc urine. Turn and reposition q2h and bordered foam applied to coccyx to reduce risk of worsening skin breakdown. Anticipate discharge to SNF when clinically appropriate [facility]05-11-2022 Note* Nursing Notes - Ayla Guerrero RN - 07/23/2021 4:11 PM EDT Images from the original note were not included. WOC/ET Nursing Consult/Evaluation Note Evaluated Ignacio Aquino for suspected pressure Description of wound: Gluteal moisture related skin damage- Base of wounds are pink, moist, superficial dried crust. Periwound is pink, intact and blanchable. No drainage, no odor. Barrier spray applied. Bilateral heels- pink, intact and blanchable. Recommendation: Gluteal moisture related skin damage- Gently cleanse with soap and water or soft bath wipes. Pat dry. Shake Touchless Care Zinc Ball Ground well. Ball Ground 4-6 inches away from skin. Leave open to air. Ball Ground 2x day and prn with incontinence episodes. Please order product from distribution item number #[id number] Bilateral heels- Please suspend heels off bed surface using pillows. Recommend continued pressure reduction techniques including frequent repositioning, minimizing elevation of the head of the bed, and encouraging patient to be out of bed as much as possible (use pressure reducing wheelchair cushion when sitting in chair). Optimize nutrition to improve skin and wound outcomes. Increase protein intake as tolerated. Consider supplemental zinc, vitamin C (or multivitamin) to promote wound healing. Continue STAND Skin Bundle Score on Candace Scale If Candace ?18 , the skin bundle should be implemented in full, unless contraindicated If Candace ? 12 , Consult WOC team for High Risk for skin breakdown Turn, Offload and Reposition tubes and devices Turns are documented properly in IHIS Tubes and devices are checked and not under pt Apply Barrier Cream (incontinent pts) or Foam dressing (continent pts) Pt is incontinent, Apply Critic-Aid Clear Moisture Barrier Ointment BID or as directed by /MAYANK Pt is continent, Lift back one corner of the bordered foam dressing, inspect the skin, and then reposition the dressing over bony prominence. Nutritional Intervention Encourage 2-4 ounces of nutrition supplement 3-4 times a day. Typically this should occur with medication administration Chart type of supplement and volume consumed in I/O flowsheet Discuss with Specialist Place a consult in [facility] for the WOCN if Candace Score is ? 12 ( high or severe risk) Discuss with BERRY PICKER MACHINE OPERATOR or Unit Skin [place] The STAND skin bundle is an evidence-based prevention bundle designed to prevent pressure injuries in patients who are at risk for developing a pressure-related injury. For more information related to STAND Skin Bundle: [email or web address] See image(s) below: Candace Skin Assessment: Candace Risk Assessment Sensory Perception: 2-->very limited Moisture: 3-->occasionally moist Activity: 1-->bedfast Mobility: 1-->completely immobile Nutrition: 2-->probably inadequate Friction and Shear: 1-->problem Candace Score: 10 Candace Score: Candace Score: 10 Body mass index is 34.09 kg/m . Total time spent in assessment and treatment of patient: 35 minutes spent providing patient care. LABS: ALBUMIN Date Value Ref Range Status 02/20/2015 3.1 (L) 3.5 - 5.0 g/dL Final Albumin Date Value Ref Range Status 07/23/2021 4.0 3.5 - 5.0 g/dL Final PREALBUMIN Date Value Ref Range Status 04/02/2015 23 17 - 34 mg/dL Final Past Medical History: Diagnosis Date Anemia Central cord syndrome HTN (hypertension) Obesity Past Surgical History: Procedure Laterality Date PLACEMENT CATH SELECTIVE INTERNAL CAROTID ARTERY W/ ANGIO IPSILAT INTRACRANIAL CAROTID W/ RAD S&I N/A 07/15/2021 Laterality: N/A; Surgeon: Bill Serrato MD; Location: [facility] MAIN OR PACEMAKER PLACEMENT N/A 02/18/2015 Laterality: N/A; Surgeon: Colton Daly MD; Location: [facility] CERVICAL FUSION C6/C7 Wound Documentation: 07/23/21 1609 Wound (Adult, Pediatric) 07/23/21 0630 Bilateral gluteal other (see comments) Placement Date/Time: 07/23/21 0630 Present On Admission : yes Wound #: 1 Side: Bilateral Location: gluteal Type: (c) other (see comments) Wound Image Base pink;moist (blanchable) Periwound macerated;intact Drainage Amount none Wound Interventions barrier applied Dressing open to air Periwound Care dry periwound area maintained Plan Problem moisture associated skin damage Current Plan barrier cream Visit Type Consult with RN Supportive Measures optimize nutrition;turn every 2 hours WOCT Visit Frequency Wed;PRN Last Date Seen 07/23/21 RN notified of assessment and plan. Please page #[phone] or reconsult with any further needs. [facility]05-11-2022 Note* Plan of Care - Krystyna Majano OT - 07/23/2021 3:56 PM EDT Problem: OT - Dressing Goal: Upper Body Dressing Description: Pt will complete UE dressing task Edge of bed with standby assistance for improved ability to complete self-care activities. Outcome: Ongoing Problem: OT - ADLs Goal: Grooming Description: Pt will complete grooming Edge of bed with standby assistance for improved ability to safely complete ADLs. Outcome: Ongoing Problem: OT - Balance Goal: Balance - Seated Description: Pt will perform 10 minutes of ADL routine in sitting with contact guard assistance andbalance level of contact guard to promote safety during self-care activities. Outcome: Ongoing Problem: OT - Transfers Goal: Transfers Toilet/Bedside Commode Description: Pt will transfer to/from toilet/BSC with moderate assistance for improved ability to safely complete ADLs. Outcome: Ongoing [facility]05-11-2022 Note* Plan of Care - JUAN Tadeo - 07/23/2021 2:52 PM EDT Problem: AGRICULTURAL REAL ESTATE AGENT - Language Goal: Establish Yes/No Description: Patient will respond to yes/no questions with a yes/no type response via any modality with maximum cues with 80% accuracy across 1 session to establish a reliable means of communication. Outcome: Ongoing Goal: Command Following Description: Patient will complete simple 1-step commands (minimum of x10) to 70% success with max cues as needed in order to improve direction following for functional gains in ability to participate more independently in care. Outcome: Ongoing Goal: Expressive Language Goal 1 Description: Patient will communicate basic wants/needs via any communication modality on at least 3 opportunities across 1 session to improve functional communication and ability to direct care. Outcome: Ongoing [facility]05-11-2022 Note* Plan of Care - Patti Lopez RN - 07/23/2021 11:46 AM EDT Problem: Patient Care Overview Goal: Plan of Care Review Outcome: Ongoing Goal: Individualization & Mutuality Outcome: Ongoing Goal: Discharge Needs Assessment Outcome: Ongoing Goal: Interdisciplinary Rounds/Family Conf Outcome: Ongoing [facility]05-11-2022 Note* Medical Student - Merary Heredia - 07/23/2021 11:36 AM EDTSummary: Progress Note Internal Medicine Daily Progress Note Patient: Ignacio Aquino, 1945, [id number] Medical Student: Merary Heredia, MS4 Assessment/Plan: Ignaico Aquino is a 76 y.o. 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 Altered Mental Status, resolving On 07/22, pt was found to have cognitive progress since his discharge after his stroke (07/18/21) withaphasia and inability to follow commands. On 07/23, Mr. Aquino was improved as he was able to followone step commands, answer questions appropriately and move all his extremities. Ddx for AMS includes TIA vs recrudesce of stroke, less likely [place], AMS secondary to infection, seizure, or arrhythmia due to SSS -Consult Neurovascular, appreciate recommendation -Continue ASA 81 mg daily until 07/26, start Apixiban 5mg BID 07/26 -Continue atorvastatin 40mg daily -Interrogate pacemaker C5/C6 fracture with post-traumatic myelopathy Pt has history of weakness in his lower extremity and a neurogenic bladder from previous injury. -Mejía placed in ED, removed 07/23 -Straight cath q6h Hypertension Pt noted to have high blood pressures up to the 190s/90s overnight. Pt has been on lisinopril, nifedipine, and coreg after previous admission for stroke -Resume nifedipine 30mg QDay, lisinopril 20mg daily, and carvedilol 12.5mg q12h Rash Pt has a new scaley rash along neck and jaw line that patient occasionally itches. Ddx includes seborrhoic dermatitis vs eczema vs dry skin -topical hydrocortisone 1% ointment to apply to neck and jaw line BID Chronic Problems: Neuropathy: home gabapentin Depression/anxiety: citalopram DVT PPX: SCDs, to start Eliquis 07/26 Code Status: Full Code Disposition: Discharge back to [facility] as soon as transportation can be arranged Subjective/Interval History: No acute events overnight. Interview was limited by the patient's ability to say simple, short sentences and answer yes/no questions. The patient denied pain or discomfort. Objective: Vitals: 07/23/21 1018 BP: 166/81 Pulse: 59 Resp: 16 Temp: 97.4 F (36.3 C) O2 Device: room air (07/23/21 1018) Gen: NAD, well-appearing HENT: Normocephalic atraumatic, extraocular motion intact Cardio: RRR, normal S1/S2, grade 2 systolic ejection murmur GI: Non-distended MSK: no joint swelling or erythema Ext: warm and well-perfused, no LE edema Skin: Scaly rash along jaw line and neck Neuro: Alert, able to say short phrases but also has unintelligent speech. Appropriately respondingto questions and following one step commands. He was moving all four extremities and moving both arms against gravity. Has good senior oracle developer strength. Able to move ankle but unable to move toes. Data Review: Labs WBC/Hgb/Hct/Plts: 8.34/13.9/40.3/185 (07/23 442) Na/K+/Phos/Mg/Ca: 140/3.6/3.1/2.0/8.7 (07/22 1501-07/23 442) Bun/Creat/Cl/CO2/Glucose: 23/0.90/111/22/84 (07/23 442) Ptt/Pt/Inr: 28.6/15.2/1.2 (07/23 442) 07/22/21 Urine Analysis -Absent bacteria, small amount of blood in urine, small amount of leukocyte esterase, 6-9 WBC, urobilinogen 2.0 -Blood Gas: pH 7.34, pCO2 43, HCO3 23 -TSH 5.620, T4 Free: 1.19 Imaging 07/22/21 CT Stroke Head Alert IMPRESSION: 1. Areas of relative hyperdensity in the left MCA and BIOMETRICIAN territory involving the left basal ganglia, left temporal lobe, and left occipital lobe likely represent enhancing areas of subacute infarction given the recent contrast administration at an outside hospital. These correspond to areas of infarction seen on recent MRI brain dated July 16, 2021. 2. No acute intracranial hemorrhage or new acute large territorial infarct. 3. 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 Findings were discussed with BART Padilla at 3:10 PM on July 22, 2021. 07/22/21 CT Abdomen/Pelvis w/o contrast IMPRESSION: 1. No acute findings in the abdomen or pelvis. 07/22/21 Chest X-Ray IMPRESSION: Cardiomegaly. No acute process. I personally viewed and interpreted these images and I have reviewed and approved this report. Discussed with team and attending, Dr. Jose, on rounds. Signed, Merary Heredia MS4 Associated attestation - Diana Decker MD - 07/24/2021 6:18 AM EDT This wonderful medical student note is for educational purposes only and is not considered part of the legal medical record. Please refer to the resident physician's note from 07/23/2021 for final plan. Diana Decker MD [facility]05-11-2022 Note* Plan of Care - Viridiana Gary PT - 07/23/2021 11:24 AM EDT Problem: PT - Transfers Goal: Supine <-> Sit Description: Pt will perform bed mobility with flat bed & no rail with moderate assistance in order to improve functional mobility and safety. Outcome: Ongoing Goal: Sit <-> Stand Description: Pt will perform sit to/from stand transfers with maximal assistance with wheeled walker in order to improve functional mobility and safety. Outcome: Ongoing Goal: Stand-Pivot Description: Pt will perform stand/pivot transfer to/from bed/chair/commode with maximal assistancewith wheeled walker in order to improve functional mobility and safety. Outcome: Ongoing Goal: Strength/ROM Description: Pt will perform 2 sets of 15 repetitions of upper lower bilateral extremity exercises with contact guard assistance in order to improve strength, maintain ROM, necessary for functional mobility. Outcome: Ongoing [facility]05-11-2022 Note* Nursing Notes - Catrachito Perdaza RN - 07/23/2021 6:52 AM EDT ER nurse Ivan calls with report as patient arrives to floor at 0620. Patient placed in room, pictures taken of skin damage to coccyx, rash to left flor, bruising to left upper arm, and appended to chart. Patient speech is incomprehensible, but follows commands, + track and focus, able to move right and left upper extremitiy purposefully. Elevated BP noted on arrival to floor. Patient appears to be in no acute distress at rest, but moans with movement. Unable to quantify pain. Two person skin check completed by this RN with set up and chargerPRUDENCIO Yadav. [facility]05-11-2022 Emergency department Note* Ivan Hubbard RN - 07/23/2021 5:53 AM EDT Notified Physician ref Pt's BP. Waiting for response [facility]05-11-2022 Emergency department Note* Ivan Hubbard RN - 07/23/2021 5:53 AM EDT Notified Physician ref Pt's BP. Waiting for response * Gina Jesus RN - 07/23/2021 4:06 AM EDT Bed: E043 Expected date: Expected time: Means of arrival: Comments: 38 * Nelia Hatch RN - 07/22/2021 8:23 PM EDT [phone] Bartolo Aquino Son * Kleber Scott MD - 07/22/2021 8:20 PM EDT Signout: Ignacio Aquino 76 y.o. male with a chief complaint of Altered mental status received in sign-out. Vitals: 07/22/21 1630 07/22/21 1700 07/22/21 1800 07/22/21 1900 BP: 180/84 179/89 154/69 190/86 Pulse: 67 64 64 71 Resp: 18 20 19 18 Temp: TempSrc: SpO2: 98% 97% 96% 96% Weight: Height: The patient presents with: ams Pending studies and plan include: ED Course as of 07/22/212019July 22, 2021 1929 76 yo male who present as level 2 stroke alert as transfer from OSH. Recent left MCA stroke and tpa days ago. Worsening mental status. No acute changes on current CTH and CTA. MRI pending. Admitted for encephalopathy workup. The expected disposition is: admission Kleber Scott MD PhD PGY2 Emergency Medicine [facility] [id number] Kleber Scott MD Resident 07/22/212019 * KEO Trevino - 07/22/2021 2:40 PM EDT Patient presents as level II stroke alert via [id number] from [facility]. Per transporting medics, patient's spouse and son were present at outside hospital and are expected to arrive today. Family contact info on file if needed. SW will continue to follow. KEO Trevino 8-1966 * Michael Roblero MD - 07/22/2021 2:39 PM EDT ED Teaching Attending Attestation AND PLAN Briefly, Ignacio Aquino is a 76 y.o. patient with history as below presenting with a change in mental status, coming in on transfer from another hospital, initially from [facility], whereshe was convalescing after a CVA with R sided deficits. The reports from that facility are inconsistent as to what changes were observed and when. He is not following any commands and is mumbling incoherently, wincing at times seemingly in pain. Past Medical History: Diagnosis Date Anemia Central cord syndrome HTN (hypertension) Obesity Past Surgical History: Procedure Laterality Date PLACEMENT CATH SELECTIVE INTERNAL CAROTID ARTERY W/ ANGIO IPSILAT INTRACRANIAL CAROTID W/ RAD S&I N/A 07/15/2021 Laterality: N/A; Surgeon: Bill Serrato MD; Location: [facility] MAIN OR PACEMAKER PLACEMENT N/A 02/18/2015 Laterality: N/A; Surgeon: Colton Daly MD; Location: [facility] CERVICAL FUSION C6/C7 Vitals: 07/22/21 1433 Height: 1.753 m (5' 9) Exam notable for: Pupils sluggish but symmetric, distended abdomen, reducible periumbilical hernia NIHSS (Provider) Flowsheet Row First Filed Value Provider NIH Stroke Scale NIH Interval (Provider) admission filed on 07/22/2021 1439 NIH Level of Conciousness (Provider) 0 filed on 07/22/2021 1439 NIH LOC Questions (Provider) 2 filed on 07/22/2021 1439 NIH LOC Commands (Provider) 2 filed on 07/22/2021 1439 NIH Best Gaze (Provider) 0 filed on 07/22/2021 1439 NIH Visual (Provider) 0 filed on 07/22/2021 1439 NIH Facial Palsy (Provider) 0 filed on 07/22/2021 1439 NIH Left Arm Motor (Provider) 0 filed on 07/22/2021 1439 NIH Right Arm Motor (Provider) 1 filed on 07/22/2021 1439 NIH Left Leg Motor (Provider) 3 filed on 07/22/2021 1439 NIH Right Leg Motor (Provider) 3 filed on 07/22/2021 1439 NIH Limb Ataxia (Provider) 0 filed on 07/22/2021 1439 NIH Sensory (Provider) 0 filed on 07/22/2021 1439 NIH Best Language (Provider) 2 filed on 07/22/2021 1439 NIH Dysarthria (Provider) 0 filed on 07/22/2021 1439 NIH Extinction and Inattention (Provider) 0 filed on 07/22/2021 1439 NIH Total Score (Provider) 13 filed on 07/22/2021 1439 Is NIH=0 Within 180 min of Last Known Well Time? -- Impression and plan: Altered mental status, broad differential. Pending CTH and CT A/P along with a broad metabolic workup. Signed out at 1500 I saw and examined the patient. I agree with my senior housekeeper's documented plan except for the changes in plan outlined above by me. Michael Roblero MD 07/22/2021 2:39 PM [phone] Michael Roblero MD 07/23/21 1115 * Sarai Ley RN - 07/22/2021 2:36 PM EDT Bed: E038 Expected date: 07/22/21 Expected time: Means of arrival: EMS Comments: * Sarai Ley RN - 07/22/2021 2:30 PM EDT Right sided deficits form old stroke, state that this morning he had a change in mentation. Poor report noted from Rehab. Recent admission at this facility. * Mirza Ritchie MD - 07/22/2021 2:21 PM EDT EMERGENCY DEPARTMENT ENCOUNTER CHIEF COMPLAINT Stroke alert DAYLIN Aquino is a 76 y.o. male who has a past medical history of Anemia, Central cord syndrome, HTN (hypertension), and Obesity. This patient presents as a stroke alert. 76 yom w/ a PMH of L MCA CVA status post tPA on July 12, 2021 recently discharge on 07/18/21, central cord syndrome w/ known deficits, atrial fibrillation known ACOMM aneurysm, htn, history of paraplegia secondary to a C6 fracture, neurogenic bladder requiring straight catheterizations who presented initially to an outside hospital from his facility with concern for altered mental status earlier today with an unknown last known well. Further review of systems limited secondary to the patient's baseline aphasia. Recent L MCA CVA discharged on 07/18/21. Known ACOMM aneurysm. REVIEW OF SYSTEMS Review of systems including constitutional, skin, HEENT, eyes, CV, respiratory, GI, , MSK, endocrine, neurologic, psychiatric, heme reviewed and negative except as noted above. PAST MEDICAL HISTORY Past Medical History: Diagnosis Date Anemia Central cord syndrome HTN (hypertension) Obesity SURGICAL HISTORY Past Surgical History: Procedure Laterality Date PLACEMENT CATH SELECTIVE INTERNAL CAROTID ARTERY W/ ANGIO IPSILAT INTRACRANIAL CAROTID W/ RAD S&I N/A 07/15/2021 Laterality: N/A; Surgeon: Bill Serrato MD; Location: [facility] MAIN OR PACEMAKER PLACEMENT N/A 02/18/2015 Laterality: N/A; Surgeon: Colton Daly MD; Location: [facility] CERVICAL FUSION C6/C7 CURRENT MEDICATIONS Current Outpatient Medications Medication Sig aspirin 81 MG Chew Tab chewable tablet Chew 1 tablet daily for 8 days. atorvastatin 40 MG tablet Take 1 tablet by mouth at bedtime. baclofen 10 MG Tab take 0.5-1 tablets by mouth at bedtime.. (Patient not taking: Reported on 12/31/2015 ) carveDILOL 12.5 MG tablet Take 1 tablet by mouth every 12 hours. citalopram 40 MG Tab take 1 tablet by mouth at bedtime. DISABILITY PLACARD Disability placard end date 04/10/2019 docusate sodium-benzocaine 20-283 MG Enema enema 1 enema by Rectal route every evening at 6 PM. (Patient not taking: Reported on 10/29/2015 ) ferrous sulfate 324 (65 FE) MG Tab DR take 1 tablet by mouth 3 times daily. (Patient not taking: Reported on 10/29/2015 ) finasteride 5 MG Tab take 5 mg by mouth daily.. gabapentin 100 MG Cap take 2 capsules by mouth 3 times daily. (Patient taking differently: take 200mg by mouth 2 times daily.. 2 caps in am and 2 caps in pm. ) lisinopril 20 MG tablet Take 20 mg by mouth daily. melatonin 3 MG Tab take 3 mg by mouth at bedtime.. Methenamine Hippurate 1 g Tab take 1 g by mouth daily.. NIFEdipine 30 MG Tab SR 24 HR Take 1 tablet by mouth daily. Nutritional Supplements (ENSURE COMPLETE PO) take 1 Can by mouth 4 times daily. nystatin 123524 UNIT/GM Powder 1 Application by Topical route 3 times daily. (Patient not taking: Reported on 10/29/2015 ) Probiotic Product (PROBIOTIC DAILY PO) take by mouth.. senna 17.2 MG Tab take 1 tablet by mouth daily. Tamsulosin HCl 0.4 MG Cap take 1 capsule by mouth at bedtime. ALLERGIES Allergies Allergen Reactions Bactrim Ciprofloxacin Hives FAMILY HISTORY Family History Problem Relation Age of Onset Heart Disease - Other Sister has AICD Cancer Mother breast SOCIAL HISTORY Social History Socioeconomic History Marital status: Spouse name: Not on file Number of children: Not on file Years of education: Not on file Highest education level: Not on file Occupational History Not on file Tobacco Use Smoking status: Never Smoker Smokeless tobacco: Not on file Substance and Sexual Activity Alcohol use: No Alcohol/week: 0.0 standard drinks Drug use: No Sexual activity: Not on file Other Topics Concern Not on file Social History Narrative Not on file Social Determinants of Health Financial Resource Strain: Not on file Food Insecurity: Not on file Transportation Needs: Not on file Physical Activity: Not on file Stress: Not on file Social Connections: Not on file Intimate Partner Violence: Not on file Housing Stability: Not on file PHYSICAL EXAM Vital Signs:Smoking Status Never Smoker Constitutional: in no acute distress. HENT: atraumatic. Oropharynx is clear and moist. Neck: Neck supple. Cardiovascular: Normal rate and regular rhythm. No murmurs, rubs, gallops Pulmonary: Effort normal, non-labored. Good aeration and symmetric breath sounds. No wheezes or Rhonchi. Abdominal: Abdomen severely distended MSK: No deformities, joint effusions. Neurological: -Eyes open spontaneously -R pupil 3, L pupil 2, both reactive to light b/l -RUE drift -patient aphasic and exam limited Skin: Skin is warm and dry. No rashes or wounds noted. Psychiatric: Unable to assess Labs: No results found for this visit on 07/22/21. Radiology: No orders to display ED COURSE & MEDICAL DECISION MAKING Assessment: Ignacio Aquino is a 76 y.o. male who presents with: Level 2 stroke alert This patient with a complicated history including a recent left MCA stroke status post tPA presentsas a transfer from an outside hospital with concern for worsening mental status from his chronically depressed baseline (aphasic with paraplegia versus tetraplegia). CT head and CT angiogram brain and neck at outside hospital were without any evidence of any new/acute intracranial processes. Repeat CT head here also negative for any new/acute intracranial process. EKG demonstrates normal sinus rhythm with normal axis, normal intervals, no acute ST segment changes, no acute T-wave changes. High sensitivity troponin within normal limits. Cardiac ischemia unlikely. CBC unremarkable. INR 1.2. Urinalysis demonstrated leukocyte esterase and pyuria; however, negativefor bacteriuria or nitrates. Will defer antibiotics at this time. Urine culture sent. Chemistry unremarkable. Lipase within normal limits, pancreatitis excluded. LFTs unremarkable. TSH elevated; however, free T4 within normal limits. Chest x-ray without any consolidation, pneumothorax, or change in cardiomegaly. CT abdomen pelvis read well as the negative for any acute abnormalities in the abdomen and pelvis. There is some evidence of stool burden in the large colon. No evidence of small-bowel obstruction. Plan to treat for evidence of constipation with an enema. Will defer further bowel regimen to the inpatient team. Plan to admit to medicine while awaiting MRI brain without per Neurology and for further evaluationof possible acute on chronic encephalopathy. Plan for the patient was discussed with attending physician with alterations made to the plan as needed. Note was written using voice recognition software. Please excuse any misspellings or word substitutions. Mirza Ritchie MD Resident 07/22/21 1636 [facility]* Gina Jesus RN - 07/23/2021 4:06 AM EDT Bed: E043 Expected date: Expected time: Means of arrival: Comments: 38 [facility]05-10-2022 Emergency department Note* Nelia Hatch RN - 07/22/2021 8:23 PM EDT [phone] Bartolo Aquino Son [facility]05-10-2022 Physician Emergency department Note* Kleber Scott MD - 07/22/2021 8:20 PM EDT Signout: Ignacio Kenia 76 y.o. male with a chief complaint of Altered mental status received in sign-out. Vitals: 07/22/21 1630 07/22/21 1700 07/22/21 1800 07/22/21 1900 BP: 180/84 179/89 154/69 190/86 Pulse: 67 64 64 71 Resp: 18 20 19 18 Temp: TempSrc: SpO2: 98% 97% 96% 96% Weight: Height: The patient presents with: ams Pending studies and plan include: ED Course as of 07/22/212019July 22, [id number] 76 yo male who present as level 2 stroke alert as transfer from OSH. Recent left MCA stroke and tpa days ago. Worsening mental status. No acute changes on current CTH and CTA. MRI pending. Admitted for encephalopathy workup. The expected disposition is: admission Kleber Scott MD PhD PGY2 Emergency Medicine [facility] [id number] Kleber Scott MD Resident 07/22/212019 [facility] Work Phone: 1(761) 575-338205-10-2022 Note* Certification - Christophe Stein MD - 07/22/2021 6:43 PM EDT I certify that this patient requires inpatient services at this time. I anticipate the expected length of stay will include at least two midnights. Inpatient services are due to the following medicalconcerns altered mental status in setting of recent stroke. Plans for post hospitalization care will be discharge to long-term facility. Christophe Stein MD MPH Internal Medicine PGY2 [id number] [facility]05-10-2022 History and physical note* Christophe Stein MD - 07/22/2021 4:56 PM EDT Admission History & Physical Patient: Ignacio Aquino, 1945, [id number] Physician: Christophe Stein MD, PGY2, Pager [phone], GM1 service Date of face to face patient encounter: 07/22/21 Chief Complaint: Altered mental status History Of Present Illness: Ignacio Aquino is a 76 y.o. 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 Mr. Aquino was recently admitted 07/12-07/18/21 for L MCA stroke (received tPA), with acomm aneurysm detected on imaging during that admission. Scheduled for outpt Neurosurgery follow-up. Per son, the patient's cognitive abilities have been improving. Over the past several days, has been speaking in incomplete sentences and asking simple questions (ex: Where [grandkid]? w/o linking verb). Is able to read some words from food menu at SNF and say the name of food item he wants. As of last night, he was able to complete a simple word finding game with assistance on a phone. As far as motor skill,generally had good command of his R hands and fingers but some clumsiness; family not sure of R vs L function, though believe he has more L sided deficits. Somewhat difficult to assess accuracy of hand use, per son, because of impaired eye sight. Was standing with the use of a mechanical lift this past week at SNF. This morning on first assessment by nurse at his SNF, he was unable to follow commands or participate in therapy. He was taken by ambulance to OSH where CTH and CT angio were negative for acute process. When his son arrived one hour later, Mr. Aquino was responding to some stimuli but not others. For instance, he was able to squeeze hand on command, but not smile, which he's been able to do over the past week. Was eventually able to give some yes/no answers at OSH and indicate when he was uncomfortable and wanted to be adjusted, but not respond to all questions. He was brought here for further evaluation. Patient unable to respond meaningfully to my questions. Medical/Surgical History: Past Medical History: Diagnosis Date Anemia Central cord syndrome HTN (hypertension) Obesity Past Surgical History: Procedure Laterality Date PLACEMENT CATH SELECTIVE INTERNAL CAROTID ARTERY W/ ANGIO IPSILAT INTRACRANIAL CAROTID W/ RAD S&I N/A 07/15/2021 Laterality: N/A; Surgeon: Bill Serrato MD; Location: [facility] MAIN OR PACEMAKER PLACEMENT N/A 02/18/2015 Laterality: N/A; Surgeon: Colton Daly MD; Location: [facility] CERVICAL FUSION C6/C7 Social History: Social History Tobacco Use Smoking status: Never Smoker Smokeless tobacco: Not on file Substance Use Topics Alcohol use: No Alcohol/week: 0.0 standard drinks Social History Substance and Sexual Activity Drug Use No Social History Social History Narrative Not on file Family History: family history includes Cancer in his mother; Heart Disease - Other in his sister. Medications: Family uncertain of pt meds outside of lisinopril and nifedipine. List below should be updated at last discharge. Prior to Admission Medications Prescriptions Last Dose Informant Patient Reported? Taking? DISABILITY PLACARD No No Sig: Disability placard end date 04/10/2019 Methenamine Hippurate 1 g Tab Yes No Sig: take 1 g by mouth daily.. NIFEdipine 30 MG Tab SR 24 HR No No Sig: Take 1 tablet by mouth daily. Nutritional Supplements (ENSURE COMPLETE PO) Yes No Sig: take 1 Can by mouth 4 times daily. Probiotic Product (PROBIOTIC DAILY PO) Yes No Sig: take by mouth.. Tamsulosin HCl 0.4 MG Cap No No Sig: take 1 capsule by mouth at bedtime. aspirin 81 MG Chew Tab chewable tablet No No Sig: Chew 1 tablet daily for 8 days. atorvastatin 40 MG tablet No No Sig: Take 1 tablet by mouth at bedtime. baclofen 10 MG Tab No No Sig: take 0.5-1 tablets by mouth at bedtime.. Patient not taking: Reported on 12/31/2015 carveDILOL 12.5 MG tablet No No Sig: Take 1 tablet by mouth every 12 hours. citalopram 40 MG Tab No No Sig: take 1 tablet by mouth at bedtime. docusate sodium-benzocaine 20-283 MG Enema enema No No Si enema by Rectal route every evening at 6 PM. Patient not taking: Reported on 10/29/2015 ferrous sulfate 324 (65 FE) MG Tab DR No No Sig: take 1 tablet by mouth 3 times daily. Patient not taking: Reported on 10/29/2015 finasteride 5 MG Tab Yes No Sig: take 5 mg by mouth daily.. gabapentin 100 MG Cap No No Sig: take 2 capsules by mouth 3 times daily. Patient taking differently: take 200 mg by mouth 2 times daily.. 2 caps in am and 2 caps in pm. lisinopril 20 MG tablet Yes No Sig: Take 20 mg by mouth daily. melatonin 3 MG Tab Yes No Sig: take 3 mg by mouth at bedtime.. nystatin [id number] UNIT/GM Powder No No Si Application by Topical route 3 times daily. Patient not taking: Reported on 10/29/2015 senna 17.2 MG Tab No No Sig: take 1 tablet by mouth daily. Facility-Administered Medications: None I have personally reviewed the medication list, verified it, and updated it via the Medication Reconciliation Navigator: [] with the facility's MAR Allergies: Allergies Allergen Reactions Ciprofloxacin Hives Bactrim Unsure of reaction Review of Systems: Limited by patient condition. Per family: General: denies f/c Head: has not indicated head pain Eyes: unable to assess ENT: seems congested but no cough CV: denies CP, as far as family can tell Pulm: denies SOB, as far as family can tell GI: constipation; family not aware of vomiting or diarrhea : requires straight catheterization Physical Exam: Vitals: 07/22/21 1800 BP: 154/69 Pulse: 64 Resp: 19 Temp: Gen: awake, minimally interactive Head: normocephalic, atraumatic Eyes: sclera anicteric; unable to assess EOMI due to lack of participation Face: erythema across most of face, including nasolabial folds, with flaking skin under facial hair Neck: no jugular venous distension CV: regular rate and rhythm; no murmurs, rubs, gallops Lungs: clear to anterior auscultation bilaterally, chest rise equal Abd: positive bowel sounds; soft and non-tender Extrem: No lower extremity edema Skin: no obvious rashes or lesions Neuro: can say yes on command but follows with gibberish; responds to orientation and other questions with insensible vocalizations; will squeeze hand bilaterally on command, does not follow other verbal commands (put your thumb up, touch your nose,) but can follow some visual stimuli (show him a thumb's up then point to his hand. Uses R hand spontaneously, but not left. Wiggles b/l feet spontaneously. Psych: unable to assess Body mass index is 34.09 kg/m . Data Review: WBC/Hgb/Hct/Plts: 8.41/14.0/42.1/183 (07/22 1501) Na/K+/Phos/Mg/Ca: 139/4.3/3.1/2.0/8.7 (07/22 1501) Bun/Creat/Cl/CO2/Glucose: 27/1.03/109/22/99 (07/22 1501) Ptt/Pt/Inr: 23.2/14.5/1.2 (07/22 150) Additional Labs: Urinalysis w/o sterile pyuria Imaging: XR CHEST AP PORTABLE ED Final Result IMPRESSION: Cardiomegaly. No acute process. I personally viewed and interpreted these images and I have reviewed and approved this report. ABDOMEN/PELVIS WITHOUT CONTRAST Final Result IMPRESSION: 1. No acute findings in the abdomen or pelvis. STROKE HEAD-STROKE ALERT ONLY Final Result IMPRESSION: 1. Areas of relative hyperdensity in the left MCA and BIOMETRICIAN territory involving the left basal ganglia, left temporal lobe, and left occipital lobe likely represent enhancing areas of subacute infarction given the recent contrast administration at an outside hospital. These correspond to areas of infarction seen on recent MRI brain dated July 16, 2021. 2. No acute intracranial hemorrhage or new acute large territorial infarct. 3. 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 Findings were discussed with BART Padilla at 3:10 PM on July 22, 2021. I personally viewed and interpreted these images and I have reviewed and approved this report. BRAIN WITHOUT CONTRAST (Results Pending) ECG NSR. QTc 496 but significant artifact Impression/Plan: Ignacio Aquino is a 76 y.o. male with a PMH of L MCA stroke s/p tPA 07/12/21, acomm aneurysm not repaired, C6 fracture with post-traumatic myelopathy and incomplete tetraplegia (2014), afib not on AC, and SSS s/p pacemaker who p/w decreased interaction in the setting of recent stroke Recent ischemic L MCA stroke Altered mental status L upper extremity weakness Aphasia: c/f new ischemic stroke (and CT too early to detect) vs TIA vs recrudescence. Labs not c/fmetabolic derangement or infection. Negative UA and no localizing s/s for infection. Of note, pt speaks [place] Grenadian in addition to Spanish; does not believe his vocalizations were c/w that language either. Seen by Neurovasc in ED. No hemorrhage on CT. Would not expect LUE deficits w/L MCA stroke. - cont ASA, atorvastatin - MRI brain pending - has pacemaker that will need de-activation - no BP goal per Neurovasc - Nursing swallow eval prior to PO intake - Speech eval - start eliquis 07/26 (two weeks post stroke) C5/6 fracture with post-traumatic myelopathy: has severe weakness in b/l LE, at best has been able to stand with mechanical lift. Wiggles b/l feet spontaneously. Requires straight cath - Mejía placed in ED - remove and straight cath q6 when pt has bed on med/surg floor Hypertension: patient family aware he was on lisinopril, nifedipine, but not coreg. Only fill history for lisinopril; carvedilol increased to 12.5mg bid during last admission; was not continued on nifedipine due to lack of fill history - lisinopril 20mg, coreg 12.5mg bid Chronic Problems Neuropathy: home gabapentin Depression/axiety: home escitalopram BPH: tamsulosin last addressed in note 2016, no recent fill history; [facility] no [facility], will not order meds today PPX: to start Eliquis 07/26 Code: Full Code Dispo: Admit to Med/Surg Staffed with Dr. Jose Signed, Christophe james [facility] Internal Medicine PGY-2 Pager [phone] Associated attestation - Shanika Jose MD - 07/23/2021 1:28 PM EDT Attending Addendum (GC): This patient was discussed, examined, and evaluated with the resident physician team on 07/23/2021. I have independently confirmed essential components of the medical history and the physical examination. I agree with the above therapeutic plan. Ignacio Aquino was admitted for Altered mental status. Physical Exam was reviewed from the resident note and I agree with the findings. Labs and imaging was reviewed. Impression/Plan: Principal Problem: Altered mental status Active Problems: Spinal cord injury, cervical region Essential hypertension Neuropathic pain Anxiety and depression H/O ischemic left MCA stroke Aphasia Pt appears to have improved back to his baseline by this morning on rounds. Appreciate Neurovascular consultation and they appear to be signing off and feel repeat MRI not necessary. Will interrogatehis pacer but likely discharge him back to his SNF if everything else is stable. Rest of plan per resident note. Teaching physician encounter time was 50 minutes with more than 50% spent on counseling/[id number] with the patient and/or family Shanika Jose MD, FACP, FAAP Special Event Assistant of Clinical Medicine General Internal Medicine [facility] Work Phone: [phone]) [phone] History and physical note* Christophe Stein MD - 07/22/2021 4:56 PM EDT Admission History & Physical Patient: Ignacio Aquino, 1945, [id number] Physician: Christophe Stein MD, PGY2, Pager [phone], HO9 service Date of face to face patient encounter: 07/22/21 Chief Complaint: Altered mental status History Of Present Illness: Ignacio Aquino is a 76 y.o. 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 Mr. Aquino was recently admitted 07/12-07/18/21 for L MCA stroke (received tPA), with acomm aneurysm detected on imaging during that admission. Scheduled for outpt Neurosurgery follow-up. Per son, the patient's cognitive abilities have been improving. Over the past several days, has been speaking in incomplete sentences and asking simple questions (ex: Where [grandkid]? w/o linking verb). Is able to read some words from food menu at [facility] and say the name of food item he wants. As of last night, he was able to complete a simple word finding game with assistance on a phone. As far as motor skill,generally had good command of his R hands and fingers but some clumsiness; family not sure of R vs L function, though believe he has more L sided deficits. Somewhat difficult to assess accuracy of hand use, per son, because of impaired eye sight. Was standing with the use of a mechanical lift this past week at [facility]. This morning on first assessment by nurse at his SNF, he was unable to follow commands or participate in therapy. He was taken by ambulance to OSH where CTH and CT angio were negative for acute process. When his son arrived one hour later, Mr. Aquino was responding to some stimuli but not others. For instance, he was able to squeeze hand on command, but not smile, which he's been able to do over the past week. Was eventually able to give some yes/no answers at OSH and indicate when he was uncomfortable and wanted to be adjusted, but not respond to all questions. He was brought here for further evaluation. Patient unable to respond meaningfully to my questions. Medical/Surgical History: Past Medical History: Diagnosis Date Anemia Central cord syndrome HTN (hypertension) Obesity Past Surgical History: Procedure Laterality Date PLACEMENT CATH SELECTIVE INTERNAL CAROTID ARTERY W/ ANGIO IPSILAT INTRACRANIAL CAROTID W/ RAD S&I N/A 07/15/2021 Laterality: N/A; Surgeon: Bill Serrato MD; [facility]ER PLAC[facility] N/A 02/18/2015 Laterality: N/A; Surgeon: Colton Daly MD; Location: [facility] CERVICAL FUSION C6/C7 Social History: Social History Tobacco Use Smoking status: Never Smoker Smokeless tobacco: Not on file Substance Use Topics Alcohol use: No Alcohol/week: 0.0 standard drinks Social History Substance and Sexual Activity Drug Use No Social History Social History Narrative Not on file Family History: family history includes Cancer in his mother; Heart Disease - Other in his sister. Medications: Family uncertain of pt meds outside of lisinopril and nifedipine. List below should be updated at last discharge. Prior to Admission Medications Prescriptions Last Dose Informant Patient Reported? Taking? DISABILITY PLACARD No No Sig: Disability placard end date 04/10/2019 Methenamine Hippurate 1 g Tab Yes No Sig: take 1 g by mouth daily.. NIFEdipine 30 MG Tab SR 24 HR No No Sig: Take 1 tablet by mouth daily. Nutritional Supplements (ENSURE COMPLETE PO) Yes No Sig: take 1 Can by mouth 4 times daily. Probiotic Product (PROBIOTIC DAILY PO) Yes No Sig: take by mouth.. Tamsulosin HCl 0.4 MG Cap No No Sig: take 1 capsule by mouth at bedtime. aspirin 81 MG Chew Tab chewable tablet No No Sig: Chew 1 tablet daily for 8 days. atorvastatin 40 MG tablet No No Sig: Take 1 tablet by mouth at bedtime. baclofen 10 MG Tab No No Sig: take 0.5-1 tablets by mouth at bedtime.. Patient not taking: Reported on 12/31/2015 carveDILOL 12.5 MG tablet No No Sig: Take 1 tablet by mouth every 12 hours. citalopram 40 MG Tab No No Sig: take 1 tablet by mouth at bedtime. docusate sodium-benzocaine 20-283 MG Enema enema No No Si enema by Rectal route every evening at 6 PM. Patient not taking: Reported on 10/29/2015 ferrous sulfate 324 (65 FE) MG Tab DR No No Sig: take 1 tablet by mouth 3 times daily. Patient not taking: Reported on 10/29/2015 finasteride 5 MG Tab Yes No Sig: take 5 mg by mouth daily.. gabapentin 100 MG Cap No No Sig: take 2 capsules by mouth 3 times daily. Patient taking differently: take 200 mg by mouth 2 times daily.. 2 caps in am and 2 caps in pm. lisinopril 20 MG tablet Yes No Sig: Take 20 mg by mouth daily. melatonin 3 MG Tab Yes No Sig: take 3 mg by mouth at bedtime.. nystatin [id number] UNIT/GM Powder No No Si Application by Topical route 3 times daily. Patient not taking: Reported on 10/29/2015 senna 17.2 MG Tab No No Sig: take 1 tablet by mouth daily. Facility-Administered Medications: None I have personally reviewed the medication list, verified it, and updated it via the Medication Reconciliation Navigator: [] with the facility's MAR Allergies: Allergies Allergen Reactions Ciprofloxacin Hives Bactrim Unsure of reaction Review of Systems: Limited by patient condition. Per family: General: denies f/c Head: has not indicated head pain Eyes: unable to assess ENT: seems congested but no cough CV: denies CP, as far as family can tell Pulm: denies SOB, as far as family can tell GI: constipation; family not aware of vomiting or diarrhea : requires straight catheterization Physical Exam: Vitals: 07/22/21 1800 BP: 154/69 Pulse: 64 Resp: 19 Temp: Gen: awake, minimally interactive Head: normocephalic, atraumatic Eyes: sclera anicteric; unable to assess EOMI due to lack of participation Face: erythema across most of face, including nasolabial folds, with flaking skin under facial hair Neck: no jugular venous distension CV: regular rate and rhythm; no murmurs, rubs, gallops Lungs: clear to anterior auscultation bilaterally, chest rise equal Abd: positive bowel sounds; soft and non-tender Extrem: No lower extremity edema Skin: no obvious rashes or lesions Neuro: can say yes on command but follows with gibberish; responds to orientation and other questions with insensible vocalizations; will squeeze hand bilaterally on command, does not follow other verbal commands (put your thumb up, touch your nose,) but can follow some visual stimuli (show him a thumb's up then point to his hand. Uses R hand spontaneously, but not left. Wiggles b/l feet spontaneously. Psych: unable to assess Body mass index is 34.09 kg/m . Data Review: WBC/Hgb/Hct/Plts: 8.41/14.0/42.1/183 (07/22 1500) Na/K+/Phos/Mg/Ca: 139/4.3/3.1/2.0/8.7 (07/22 1500) Bun/Creat/Cl/CO2/Glucose: 27/1.03/109/22/99 (07/22 1500) Ptt/Pt/Inr: 23.2/14.5/1.2 (07/22 1500) Additional Labs: Urinalysis w/o sterile pyuria Imaging: XR CHEST AP PORTABLE ED Final Result IMPRESSION: Cardiomegaly. No acute process. I personally viewed and interpreted these images and I have reviewed and approved this report. ABDOMEN/PELVIS WITHOUT CONTRAST Final Result IMPRESSION: 1. No acute findings in the abdomen or pelvis. STROKE HEAD-STROKE ALERT ONLY Final Result IMPRESSION: 1. Areas of relative hyperdensity in the left MCA and BIOMETRICIAN territory involving the left basal ganglia, left temporal lobe, and left occipital lobe likely represent enhancing areas of subacute infarction given the recent contrast administration at an outside hospital. These correspond to areas of infarction seen on recent MRI brain dated July 16, 2021. 2. No acute intracranial hemorrhage or new acute large territorial infarct. 3. 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 Findings were discussed with BART Padilla at 3:10 PM on July 22, 2021. I personally viewed and interpreted these images and I have reviewed and approved this report. BRAIN WITHOUT CONTRAST (Results Pending) ECG NSR. QTc 496 but significant artifact Impression/Plan: Ignacio Aquino is a 76 y.o. male with a PMH of L MCA stroke s/p tPA 07/12/21, acomm aneurysm not repaired, C6 fracture with post-traumatic myelopathy and incomplete tetraplegia (2014), afib not on AC, and SSS s/p pacemaker who p/w decreased interaction in the setting of recent stroke Recent ischemic L MCA stroke Altered mental status L upper extremity weakness Aphasia: c/f new ischemic stroke (and CT too early to detect) vs TIA vs recrudescence. Labs not c/fmetabolic derangement or infection. Negative UA and no localizing s/s for infection. Of note, pt speaks [place] Grenadian in addition to Spanish; does not believe his vocalizations were c/w that language either. Seen by Neurovasc in ED. No hemorrhage on CT. Would not expect LUE deficits w/L MCA stroke. - cont ASA, atorvastatin - MRI brain pending - has pacemaker that will need de-activation - no BP goal per Neurovasc - Nursing swallow eval prior to PO intake - Speech eval - start eliquis 07/26 (two weeks post stroke) C5/6 fracture with post-traumatic myelopathy: has severe weakness in b/l LE, at best has been able to stand with mechanical lift. Wiggles b/l feet spontaneously. Requires straight cath - Mejía placed in ED - remove and straight cath q6 when pt has bed on med/surg floor Hypertension: patient family aware he was on lisinopril, nifedipine, but not coreg. Only fill history for lisinopril; carvedilol increased to 12.5mg bid during last admission; was not continued on nifedipine due to lack of fill history - lisinopril 20mg, coreg 12.5mg bid Chronic Problems Neuropathy: home gabapentin Depression/axiety: home escitalopram BPH: tamsulosin last addressed in note 2016, no recent fill history; [facility] no recent [facility] history, will not order meds today PPX: to start Eliquis 07/26 Code: Full Code Dispo: Admit to Med/Surg Staffed with Dr. Jose Signed, Christophe james [facility] Internal Medicine PGY-2 Pager [phone] Associated attestation - Shanika Jose MD - 07/23/2021 1:28 PM EDT Attending Addendum (GC): This patient was discussed, examined, and evaluated with the resident physician team on 07/23/2021. I have independently confirmed essential components of the medical history and the physical examination. I agree with the above therapeutic plan. Ignacio Aquino was admitted for Altered mental status. Physical Exam was reviewed from the resident note and I agree with the findings. Labs and imaging was reviewed. Impression/Plan: Principal Problem: Altered mental status Active Problems: Spinal cord injury, cervical region Essential hypertension Neuropathic pain Anxiety and depression H/O ischemic left MCA stroke Aphasia Pt appears to have improved back to his baseline by this morning on rounds. Appreciate Neurovascular consultation and they appear to be signing off and feel repeat MRI not necessary. Will interrogatehis pacer but likely discharge him back to his SNF if everything else is stable. Rest of plan per resident note. Teaching physician encounter time was 50 minutes with more than 50% spent on counseling/[id number] with the patient and/or family Shanika Jose MD, FACP, FAAP Special Event Assistant of Clinical Medicine General Internal Medicine [facility] [place] NoteAcute Coronary Syndrome (ACS): Initial Evaluation and Management: [email or web address] [facility]05-10-2022 Consult note* Марина Felix, AIR TRAFFIC SUPERVISOR-HOME CARE ASSISTANT - 07/22/2021 2:40 PM EDT Neurovascular Evaluation Note Evaluation Date: 07/22/2021 Unit: [id number] Consultation was requested by Dr. Michael Roblero MD Patient status: Emergency Length of stay: 0 days Reason for Consult/Chief Complaint Altered level of consciousness, not following commands. History of Present Illness Ignacio Aquino is a 76 y.o. male with PMH significant for recent L MCA stroke, ACOM aneurysm, atrial fibrillation-not on AC, SSS s/p pacemaker placement, hypertension, C6 fracture + post-traumatic myelopathy w/ C5 incomplete tetraplegia, neurogenic bladder + bowel- straight caths, depression, anxiety,and traumatic optic neuropathy who presents with altered level of consciousness and not following commands. LKW unknown (maybe when went to bed last night). MRS 3. Patient presented from SNF. Per bedside RN at SNF he is normally aphasic, but was able to follow commands and stand with a laura lift. Today, he was not following commands and was difficult to get to participate in therapies. CT head at OSH without acute large territory infarct or hemorrhage -per my read, CTA without LVO, ACOM aneurysm noted. He was transferred to [facility] for further evaluation. A stroke alert was called for STAT consultation. On arrival to [facility], NIHSS 13 (not answering questions, not following commands, aphasic, BLE antigravity (baseline), RUE drift). CT head with enhancing L MCA subacute infarct. Of note, at discharge on 07/18 the patients exam was documented as not following commands, aphasic, with baseline BLE weakness.He is currently taking a baby aspirin and is supposed to start Eliquis on 07/26 for his atrial fibrillation. On exam, the patient appears in pain moaning. His abdomen is severely distended, firm, and tender to palpation. Arrival Time of Stroke Team : 1400 Time of symptom onset: (unknown) Patient Location - Onset of Symptoms: Other chronic healthcare facility (In rehabilitation) Source of information: Outside facility medical record Review of Systems Unable to obtain due to aphasia Neurovascular-specific History / Information Home antiplatelet/anticoagulation therapy: Antiplatelet therapy: Aspirin 81mg. Patient Current Risk Factors: Stroke risk factors include hypertension, atrial fibrillation, hyperlipidemia or previous stroke. Prior stroke history: yes Family Hx of Stroke: Parents: unknown Siblings: unknown Stroke Diagnostic/Treatment Eligibility Information Time Based tPA Eligibility for IV Treatment 1. Last known well: No Time to tPA delayed due to:Time to tPA delayed due to: N/A-LKW unknown. Stroke Clinical Assessment Information: NIHSS (Provider) Flowsheet Row First Filed Value Provider NIH Stroke Scale NIH Interval (Provider) admission filed on 07/22/2021 1439 NIH Level of Conciousness (Provider) 0 filed on 07/22/2021 1439 NIH LOC Questions (Provider) 2 filed on 07/22/2021 1439 NIH LOC Commands (Provider) 2 filed on 07/22/2021 1439 NIH Best Gaze (Provider) 0 filed on 07/22/2021 1439 NIH Visual (Provider) 0 filed on 07/22/2021 1439 NIH Facial Palsy (Provider) 0 filed on 07/22/2021 1439 NIH Left Arm Motor (Provider) 0 filed on 07/22/2021 1439 NIH Right Arm Motor (Provider) 1 filed on 07/22/2021 1439 NIH Left Leg Motor (Provider) 3 filed on 07/22/2021 1439 NIH Right Leg Motor (Provider) 3 filed on 07/22/2021 1439 NIH Limb Ataxia (Provider) 0 filed on 07/22/2021 1439 NIH Sensory (Provider) 0 filed on 07/22/2021 1439 NIH Best Language (Provider) 2 filed on 07/22/2021 1439 NIH Dysarthria (Provider) 0 filed on 07/22/2021 1439 NIH Extinction and Inattention (Provider) 0 filed on 07/22/2021 1439 NIH Total Score (Provider) 13 filed on 07/22/2021 1439 Is NIH=0 Within 180 min of Last Known Well Time? -- Stroke Scales Flowsheet Row Most Recent Value Modified Bellevue Scale Score Premorbid (MRSS) 3 filed on 07/22/2021 1439 NIH Total Score (Provider) 13 filed on 07/22/2021 1439 Past Medical History Medical History: Past Medical History: Diagnosis Date Anemia Central cord syndrome HTN (hypertension) Obesity SURGICAL HISTORY: Past Surgical History: Procedure Laterality Date PLACEMENT CATH SELECTIVE INTERNAL CAROTID ARTERY W/ ANGIO IPSILAT INTRACRANIAL CAROTID W/ RAD S&I N/A 07/15/2021 Laterality: N/A; Surgeon: Bill Serrato MD; Location: [facility] MAIN OR PACEMAKER PLACEMENT N/A 02/18/2015 Laterality: N/A; Surgeon: Colton Daly MD; Location: [facility] CERVICAL FUSION C6/C7 SOCIAL HISTORY: Social History Tobacco Use Smoking status: Never Smoker Substance Use Topics Alcohol use: No Alcohol/week: 0.0 standard drinks Drug use: No Medications PRIOR TO ARRIVAL MEDS: Prior to Admission medications Medication Sig Start Date End Date Taking? Authorizing Provider aspirin 81 MG Chew Tab chewable tablet Chew 1 tablet daily for 8 days. 07/18/21 07/26/21 BART Galvan atorvastatin 40 MG tablet Take 1 tablet by mouth at bedtime. 07/17/21 BART Galvan baclofen 10 MG Tab take 0.5-1 tablets by mouth at bedtime.. Patient not taking: Reported on 12/31/2015 10/29/15 Randall Matos MD carveDILOL 12.5 MG tablet Take 1 tablet by mouth every 12 hours. 07/17/21 BART Galvan citalopram 40 MG Tab take 1 tablet by mouth at bedtime. 04/26/15 BART Bashir DISABILITY PLACARD Disability placard end date 04/10/2019 04/10/15 BART Bashir docusate sodium-benzocaine 20-283 MG Enema enema 1 enema by Rectal route every evening at 6 PM. Patient not taking: Reported on 10/29/2015 04/02/15 Catarino Shepard MD ferrous sulfate 324 (65 FE) MG Tab DR take 1 tablet by mouth 3 times daily. Patient not taking: Reported on 10/29/2015 04/02/15 Catarino Shepard MD finasteride 5 MG Tab take 5 mg by mouth daily.. Historical Provider gabapentin 100 MG Cap take 2 capsules by mouth 3 times daily. Patient taking differently: take 200 mg by mouth 2 times daily.. 2 caps in am and 2 caps in pm. 05/13/15 Erika De La Torre APRN-HOME CARE ASSISTANT lisinopril 20 MG tablet Take 20 mg by mouth daily. 04/14/21 Historical Provider melatonin 3 MG Tab take 3 mg by mouth at bedtime.. Historical Provider Methenamine Hippurate 1 g Tab take 1 g by mouth daily.. Historical Provider NIFEdipine 30 MG Tab SR 24 HR Take 1 tablet by mouth daily. 07/18/21 Mandi Muro APRN-HOME CARE ASSISTANT Nutritional Supplements (ENSURE COMPLETE PO) take 1 Can by mouth 4 times daily. Historical Provider nystatin 842142 UNIT/GM Powder 1 Application by Topical route 3 times daily. Patient not taking: Reported on 10/29/2015 04/02/15 Catarino Shepard MD Probiotic Product (PROBIOTIC DAILY PO) take by mouth.. Historical Provider senna 17.2 MG Tab take 1 tablet by mouth daily. 04/02/15 Catarino Shepard MD Tamsulosin HCl 0.4 MG Cap take 1 capsule by mouth at bedtime. 04/26/15 Erika De La Torre APRN-HOME CARE ASSISTANT Current Meds: Current Facility Administered Meds: Current Facility-Administered Medications Medication Dose Route Frequency Provider Last Rate Last Admin lidocaine 1% (PF) (XYLOCAINE MPF) 1 % injection 0.3 mL 0.3 mL Infiltration Once PRN Mirza Ritchie MD Current Outpatient Medications Medication Sig Dispense Refill aspirin 81 MG Chew Tab chewable tablet Chew 1 tablet daily for 8 days. 8 tablet 0 atorvastatin 40 MG tablet Take 1 tablet by mouth at bedtime. 30 tablet 3 baclofen 10 MG Tab take 0.5-1 tablets by mouth at bedtime.. (Patient not taking: Reported on 12/31/2015 ) 30 tablet 1 carveDILOL 12.5 MG tablet Take 1 tablet by mouth every 12 hours. 60 tablet 2 citalopram 40 MG Tab take 1 tablet by mouth at bedtime. 30 tablet 2 DISABILITY PLACARD Disability placard end date 04/10/2019 1 Each 0 docusate sodium-benzocaine 20-283 MG Enema enema 1 enema by Rectal route every evening at 6 PM. (Patient not taking: Reported on 10/29/2015 ) 30 enema 0 ferrous sulfate 324 (65 FE) MG Tab DR take 1 tablet by mouth 3 times daily. (Patient not taking: Reported on 10/29/2015 ) 90 tablet 0 finasteride 5 MG Tab take 5 mg by mouth daily.. gabapentin 100 MG Cap take 2 capsules by mouth 3 times daily. (Patient taking differently: take 200mg by mouth 2 times daily.. 2 caps in am and 2 caps in pm. ) 180 capsule 2 lisinopril 20 MG tablet Take 20 mg by mouth daily. melatonin 3 MG Tab take 3 mg by mouth at bedtime.. Methenamine Hippurate 1 g Tab take 1 g by mouth daily.. NIFEdipine 30 MG Tab SR 24 HR Take 1 tablet by mouth daily. 30 tablet 1 Nutritional Supplements (ENSURE COMPLETE PO) take 1 Can by mouth 4 times daily. nystatin [id number] UNIT/GM Powder 1 Application by Topical route 3 times daily. (Patient not taking: Reported on 10/29/2015 ) 1 Bottle 0 Probiotic Product (PROBIOTIC DAILY PO) take by mouth.. senna 17.2 MG Tab take 1 tablet by mouth daily. 30 tablet 0 Tamsulosin HCl 0.4 MG Cap take 1 capsule by mouth at bedtime. 30 capsule 0 Scheduled Meds: Continuous Infusions: PRN Meds:lidocaine 1% (PF) Vitals Objective Findings: Vital Signs (24hrs): Body mass index is 31.45 kg/m . Lines/Drains/Airways/Wounds: Patient Lines/Drains/Airways Status Active Lines, Drains, Airways, & Wound Overview Name Placement date Placement time Site Days Incision posterior neck vertical -- -- -- -- Wound 02/18/15 1645 Left chest other (see comments) 02/18/15 1645 -- 2345 Wound (Adult, Pediatric) gluteal suspected pressure injury -- -- -- -- Physical Exam General: Appears in pain CV: RRR. Pulmonary: No increased work of breathing, Equal chest rise bilaterally, no audible wheezing. Abdomen: distended, firm, tenderness to palpation. Ext: No cyanosis, edema, or deformity Skin: No rash Neurological Examination Psych and Mental status: alert; oriented to person Speech/language: Aphasic. Cranial nerves: CN II visual llanes full to confrontation without visual extinction CN III, IV, PERRL. No gaze deviation noted. CN V Unable to assess CN VII no overt facial droop CN VIII hearing grossly intact to voice CN IX & X unable to assess CN XI shoulder shrug full strength bilaterally CNXII tongue protrudes midline Motor: Normal bulk and tone. RUE mild drift. BLE antigravity (baseline) Coordination: Unable to asses Sensation: intact to light touch throughout without extinction. Gait: Deferred Laboratory Results Diagnostics/Procedures: Labs-CBC Labs-Chem 7(PMC) Labs-Coags Additional Labs Lab Results Component Value Date CHOLESTEROL 139 07/13/2021 TRIG 83 07/13/2021 HDL 32 (L) 07/13/2021 LDLCALC 90 07/13/2021 Labs-Hemoglobin A1C Hemoglobin A1C Date Value Ref Range Status 07/13/2021 5.2 4.7 - 5.6 % Final Imaging Imaging was not analyzed by [facility] CT Stroke Head: CTA Brain/Neck: OSH per my read no LVO, ACOM aneurysm noted. Assessment/Impression Ignacio Aquino presents with aphasia, not following commands with a distended and painful abdomen. On discharge 5/6 aphasia and not following commands was noted as his exam. Per bedside RN at [facility] reports he is normally aphasic, but was able to follow commands and stand with a laura lift. Today, he wasnot following commands and was difficult to get to participate in therapies. LKW unknown. CT head here with L MCA enhancing subacute infarct. CTA at OSH without LVO, ACOM aneurysm noted. Concern for acute abdominal process given abdominal examination. Consider stroke recrudescence vs acute stroke. Plan -MRI brain without contrast. If unable to obtain MRI, repeat CT head non- contrast in 24 hours. -Encephalopathy workup per primary team to evaluate for underlying infectious or metabolic process -Swallow evaluation prior to any oral intake -Blood pressure goal per primary team -Antiplatelet or anticoagulation plan aspirin 81 mg daily -We will follow along with imaging Critical Care billing for Acute Ischemic Stroke evaluation I personally attended to this critically ill patient for a total time of 35 minutes including stroke evaluation, determining the appropriateness of administering treatment, discussing with the team, and initiating medical management and treatment of acute ischemic stroke. Patient and plan discussed with neurovascular attending Dr. Edwards. Signed, BART Rodrigues 07/22/21 3:15 PM [facility] Work Phone: [phone] Emergency department Note* KEO Trevino - 07/22/2021 2:40 PM EDT Patient presents as level II stroke alert via [id number] from [facility]. Per transporting medics, patient's spouse and son were present at outside hospital and are expected to arrive today. Family contact info on file if needed. SW will continue to follow. KEO Trevino [phone] [facility]05-10-[facility]22 Consult note* BART Rodrigues - 07/22/2021 2:40 PM EDT Neurovascular Evaluation Note Evaluation Date: 07/22/2021 Unit: [id number] Consultation was requested by Dr. Michael Roblero MD Patient status: Emergency Length of stay: 0 days Reason for Consult/Chief Complaint Altered level of consciousness, not following commands. History of Present Illness Ignacio Aquino is a 76 y.o. male with PMH significant for recent L MCA stroke, ACOM aneurysm, atrial fibrillation-not on AC, SSS s/p pacemaker placement, hypertension, C6 fracture + post-traumatic myelopathy w/ C5 incomplete tetraplegia, neurogenic bladder + bowel- straight caths, depression, anxiety,and traumatic optic neuropathy who presents with altered level of consciousness and not following commands. LKW unknown (maybe when went to bed last night). MRS 3. Patient presented from SNF. Per bedside RN at SNF he is normally aphasic, but was able to follow commands and stand with a laura lift. Today, he was not following commands and was difficult to get to participate in therapies. CT head at OSH without acute large territory infarct or hemorrhage -per my read, CTA without LVO, ACOM aneurysm noted. He was transferred to [facility] for further evaluation. A stroke alert was called for STAT consultation. On arrival to [facility], NIHSS 13 (not answering questions, not following commands, aphasic, BLE antigravity (baseline), RUE drift). CT head with enhancing L MCA subacute infarct. Of note, at discharge on 07/18 the patients exam was documented as not following commands, aphasic, with baseline BLE weakness.He is currently taking a baby aspirin and is supposed to start Eliquis on 07/26 for his atrial fibrillation. On exam, the patient appears in pain moaning. His abdomen is severely distended, firm, and tender to palpation. Arrival Time of Stroke Team : 1400 Time of symptom onset: (unknown) Patient Location - Onset of Symptoms: Other chronic healthcare facility (In rehabilitation) Source of information: Outside facility medical record Review of Systems Unable to obtain due to aphasia Neurovascular-specific History / Information Home antiplatelet/anticoagulation therapy: Antiplatelet therapy: Aspirin 81mg. Patient Current Risk Factors: Stroke risk factors include hypertension, atrial fibrillation, hyperlipidemia or previous stroke. Prior stroke history: yes Family Hx of Stroke: Parents: unknown Siblings: unknown Stroke Diagnostic/Treatment Eligibility Information Time Based tPA Eligibility for IV Treatment 1. Last known well: No Time to tPA delayed due to:Time to tPA delayed due to: N/A-LKW unknown. Stroke Clinical Assessment Information: NIHSS (Provider) Flowsheet Row First Filed Value Provider NIH Stroke Scale NIH Interval (Provider) admission filed on 07/22/2021 1439 NIH Level of Conciousness (Provider) 0 filed on 07/22/2021 1439 NIH LOC Questions (Provider) 2 filed on 07/22/2021 1439 NIH LOC Commands (Provider) 2 filed on 07/22/2021 1439 NIH Best Gaze (Provider) 0 filed on 07/22/2021 1439 NIH Visual (Provider) 0 filed on 07/22/2021 1439 NIH Facial Palsy (Provider) 0 filed on 07/22/2021 1439 NIH Left Arm Motor (Provider) 0 filed on 07/22/2021 1439 NIH Right Arm Motor (Provider) 1 filed on 07/22/2021 1439 NIH Left Leg Motor (Provider) 3 filed on 07/22/2021 1439 NIH Right Leg Motor (Provider) 3 filed on 07/22/2021 1439 NIH Limb Ataxia (Provider) 0 filed on 07/22/2021 1439 NIH Sensory (Provider) 0 filed on 07/22/2021 1439 NIH Best Language (Provider) 2 filed on 07/22/2021 1439 NIH Dysarthria (Provider) 0 filed on 07/22/2021 1439 NIH Extinction and Inattention (Provider) 0 filed on 07/22/2021 1439 NIH Total Score (Provider) 13 filed on 07/22/2021 1439 Is NIH=0 Within 180 min of Last Known Well Time? -- Stroke Scales Flowsheet Row Most Recent Value Modified Bellevue Scale Score Premorbid (MRSS) 3 filed on 07/22/2021 1439 NIH Total Score (Provider) 13 filed on 07/22/2021 1439 Past Medical History Medical History: Past Medical History: Diagnosis Date Anemia Central cord syndrome HTN (hypertension) Obesity SURGICAL HISTORY: Past Surgical History: Procedure Laterality Date PLACEMENT CATH SELECTIVE INTERNAL CAROTID ARTERY W/ ANGIO IPSILAT INTRACRANIAL CAROTID W/ RAD S&I N/A 07/15/2021 Laterality: N/A; Surgeon: Bill Serrato MD; Location: [facility] MAIN OR PACEMAKER PLACEMENT N/A 02/18/2015 Laterality: N/A; Surgeon: Colton Daly MD; Location: [facility] CERVICAL FUSION C6/C7 SOCIAL HISTORY: Social History Tobacco Use Smoking status: Never Smoker Substance Use Topics Alcohol use: No Alcohol/week: 0.0 standard drinks Drug use: No Medications PRIOR TO ARRIVAL MEDS: Prior to Admission medications Medication Sig Start Date End Date Taking? Authorizing Provider aspirin 81 MG Chew Tab chewable tablet Chew 1 tablet daily for 8 days. 07/18/21 07/26/21 BART Galvan atorvastatin 40 MG tablet Take 1 tablet by mouth at bedtime. 07/17/21 BART Galvan baclofen 10 MG Tab take 0.5-1 tablets by mouth at bedtime.. Patient not taking: Reported on 12/31/2015 10/29/15 Randall Matos MD carveDILOL 12.5 MG tablet Take 1 tablet by mouth every 12 hours. 07/17/21 BART Galvan citalopram 40 MG Tab take 1 tablet by mouth at bedtime. 04/26/15 BART Bashir DISABILITY PLACARD Disability placard end date 04/10/2019 04/10/15 BART Bashir docusate sodium-benzocaine 20-283 MG Enema enema 1 enema by Rectal route every evening at 6 PM. Patient not taking: Reported on 10/29/2015 04/02/15 Catarino Shepard MD ferrous sulfate 324 (65 FE) MG Tab DR take 1 tablet by mouth 3 times daily. Patient not taking: Reported on 10/29/2015 04/02/15 Catarino Shepard MD finasteride 5 MG Tab take 5 mg by mouth daily.. Historical Provider gabapentin 100 MG Cap take 2 capsules by mouth 3 times daily. Patient taking differently: take 200 mg by mouth 2 times daily.. 2 caps in am and 2 caps in pm. 05/13/15 BART Bashir lisinopril 20 MG tablet Take 20 mg by mouth daily. 04/14/21 Historical Provider melatonin 3 MG Tab take 3 mg by mouth at bedtime.. Historical Provider Methenamine Hippurate 1 g Tab take 1 g by mouth daily.. Historical Provider NIFEdipine 30 MG Tab SR 24 HR Take 1 tablet by mouth daily. 07/18/21 BART Galvan Nutritional Supplements (ENSURE COMPLETE PO) take 1 Can by mouth 4 times daily. Historical Provider nystatin 200915 UNIT/GM Powder 1 Application by Topical route 3 times daily. Patient not taking: Reported on 10/29/2015 04/02/15 Catarino Shepard MD Probiotic Product (PROBIOTIC DAILY PO) take by mouth.. Historical Provider senna 17.2 MG Tab take 1 tablet by mouth daily. 04/02/15 Catarino Shepard MD Tamsulosin HCl 0.4 MG Cap take 1 capsule by mouth at bedtime. 04/26/15 BART Bashir Current Meds: Current Facility Administered Meds: Current Facility-Administered Medications Medication Dose Route Frequency Provider Last Rate Last Admin lidocaine 1% (PF) (XYLOCAINE MPF) 1 % injection 0.3 mL 0.3 mL Infiltration Once PRN Mirza Ritchie MD Current Outpatient Medications Medication Sig Dispense Refill aspirin 81 MG Chew Tab chewable tablet Chew 1 tablet daily for 8 days. 8 tablet 0 atorvastatin 40 MG tablet Take 1 tablet by mouth at bedtime. 30 tablet 3 baclofen 10 MG Tab take 0.5-1 tablets by mouth at bedtime.. (Patient not taking: Reported on 12/31/2015 ) 30 tablet 1 carveDILOL 12.5 MG tablet Take 1 tablet by mouth every 12 hours. 60 tablet 2 citalopram 40 MG Tab take 1 tablet by mouth at bedtime. 30 tablet 2 DISABILITY PLACARD Disability placard end date 04/10/2019 1 Each 0 docusate sodium-benzocaine 20-283 MG Enema enema 1 enema by Rectal route every evening at 6 PM. (Patient not taking: Reported on 10/29/2015 ) 30 enema 0 ferrous sulfate 324 (65 FE) MG Tab DR take 1 tablet by mouth 3 times daily. (Patient not taking: Reported on 10/29/2015 ) 90 tablet 0 finasteride 5 MG Tab take 5 mg by mouth daily.. gabapentin 100 MG Cap take 2 capsules by mouth 3 times daily. (Patient taking differently: take 200mg by mouth 2 times daily.. 2 caps in am and 2 caps in pm. ) 180 capsule 2 lisinopril 20 MG tablet Take 20 mg by mouth daily. melatonin 3 MG Tab take 3 mg by mouth at bedtime.. Methenamine Hippurate 1 g Tab take 1 g by mouth daily.. NIFEdipine 30 MG Tab SR 24 HR Take 1 tablet by mouth daily. 30 tablet 1 Nutritional Supplements (ENSURE COMPLETE PO) take 1 Can by mouth 4 times daily. nystatin 954663 UNIT/GM Powder 1 Application by Topical route 3 times daily. (Patient not taking: Reported on 10/29/2015 ) 1 Bottle 0 Probiotic Product (PROBIOTIC DAILY PO) take by mouth.. senna 17.2 MG Tab take 1 tablet by mouth daily. 30 tablet 0 Tamsulosin HCl 0.4 MG Cap take 1 capsule by mouth at bedtime. 30 capsule 0 Scheduled Meds: Continuous Infusions: PRN Meds:lidocaine 1% (PF) Vitals Objective Findings: Vital Signs (24hrs): Body mass index is 31.45 kg/m . Lines/Drains/Airways/Wounds: Patient Lines/Drains/Airways Status Active Lines, Drains, Airways, & Wound Overview Name Placement date Placement time Site Days Incision posterior neck vertical -- -- -- -- Wound 02/18/15 1645 Left chest other (see comments) 02/18/15 1645 -- 2345 Wound (Adult, Pediatric) gluteal suspected pressure injury -- -- -- -- Physical Exam General: Appears in pain CV: RRR. Pulmonary: No increased work of breathing, Equal chest rise bilaterally, no audible wheezing. Abdomen: distended, firm, tenderness to palpation. Ext: No cyanosis, edema, or deformity Skin: No rash Neurological Examination Psych and Mental status: alert; oriented to person Speech/language: Aphasic. Cranial nerves: CN II visual llanes full to confrontation without visual extinction CN III, IV, PERRL. No gaze deviation noted. CN V Unable to assess CN VII no overt facial droop CN VIII hearing grossly intact to voice CN IX & X unable to assess CN XI shoulder shrug full strength bilaterally CNXII tongue protrudes midline Motor: Normal bulk and tone. RUE mild drift. BLE antigravity (baseline) Coordination: Unable to asses Sensation: intact to light touch throughout without extinction. Gait: Deferred Laboratory Results Diagnostics/Procedures: Labs-CBC Labs-Chem 7(PMC) Labs-Coags Additional Labs Lab Results Component Value Date CHOLESTEROL 139 07/13/2021 TRIG 83 07/13/2021 HDL 32 (L) 07/13/2021 LDLCALC 90 07/13/2021 Labs-Hemoglobin A1C Hemoglobin A1C Date Value Ref Range Status 07/13/2021 5.2 4.7 - 5.6 % Final Imaging Imaging was not analyzed by [facility] Stroke Head: CTA Brain/Neck: OSH per my read no LVO, ACOM aneurysm noted. Assessment/Impression Ignacio Aquino presents with aphasia, not following commands with a distended and painful abdomen. On discharge 5/6 aphasia and not following commands was noted as his exam. Per bedside RN at [facility] reports he is normally aphasic, but was able to follow commands and stand with a laura lift. Today, he wasnot following commands and was difficult to get to participate in therapies. LKW unknown. CT head here with L MCA enhancing subacute infarct. CTA at OSH without LVO, ACOM aneurysm noted. Concern for acute abdominal process given abdominal examination. Consider stroke recrudescence vs acute stroke. Plan -MRI brain without contrast. If unable to obtain MRI, repeat CT head non- contrast in 24 hours. -Encephalopathy workup per primary team to evaluate for underlying infectious or metabolic process -Swallow evaluation prior to any oral intake -Blood pressure goal per primary team -Antiplatelet or anticoagulation plan aspirin 81 mg daily -We will follow along with imaging Critical Care billing for Acute Ischemic Stroke evaluation I personally attended to this critically ill patient for a total time of 35 minutes including stroke evaluation, determining the appropriateness of administering treatment, discussing with the team, and initiating medical management and treatment of acute ischemic stroke. Patient and plan discussed with neurovascular attending Dr. Edwards. Signed, Марина Felix, LUIS-DIVINE 07/22/21 3:15 PM [facility] [place] Physician Emergency department Note* Michael Roblero MD - 07/22/2021 2:39 PM EDT ED Teaching Attending Attestation AND PLAN Briefly, Ignacio Aquino is a 76 y.o. patient with history as below presenting with a change in mental status, coming in on transfer from another hospital, initially [facility], whereshe was convalescing after a CVA with R sided deficits. The reports from that facility are inconsistent as to what changes were observed and when. He is not following any commands and is mumbling incoherently, wincing at times seemingly in pain. Past Medical History: Diagnosis Date Anemia Central cord syndrome HTN (hypertension) Obesity Past Surgical History: Procedure Laterality Date PLACEMENT CATH SELECTIVE INTERNAL CAROTID ARTERY W/ ANGIO IPSILAT INTRACRANIAL CAROTID W/ RAD S&I N/A 07/15/2021 Laterality: N/A; Surgeon: Bill Serrato MD; Location: [facility] MAIN OR PACEMAKER PLACEMENT N/A 02/18/2015 Laterality: N/A; Surgeon: Colton Daly MD; Location: [facility] CERVICAL FUSION C6/C7 Vitals: 07/22/21 1433 Height: 1.753 m (5' 9) Exam notable for: Pupils sluggish but symmetric, distended abdomen, reducible periumbilical hernia NIHSS (Provider) Flowsheet Row First Filed Value Provider NIH Stroke Scale NIH Interval (Provider) admission filed on 07/22/2021 1439 NIH Level of Conciousness (Provider) 0 filed on 07/22/2021 1439 NIH LOC Questions (Provider) 2 filed on 07/22/2021 1439 NIH LOC Commands (Provider) 2 filed on 07/22/2021 1439 NIH Best Gaze (Provider) 0 filed on 07/22/2021 1439 NIH Visual (Provider) 0 filed on 07/22/2021 1439 NIH Facial Palsy (Provider) 0 filed on 07/22/2021 1439 NIH Left Arm Motor (Provider) 0 filed on 07/22/2021 1439 NIH Right Arm Motor (Provider) 1 filed on 07/22/2021 1439 NIH Left Leg Motor (Provider) 3 filed on 07/22/2021 1439 NIH Right Leg Motor (Provider) 3 filed on 07/22/2021 1439 NIH Limb Ataxia (Provider) 0 filed on 07/22/2021 1439 NIH Sensory (Provider) 0 filed on 07/22/2021 1439 NIH Best Language (Provider) 2 filed on 07/22/2021 1439 NIH Dysarthria (Provider) 0 filed on 07/22/2021 1439 NIH Extinction and Inattention (Provider) 0 filed on 07/22/2021 1439 NIH Total Score (Provider) 13 filed on 07/22/2021 1439 Is NIH=0 Within 180 min of Last Known Well Time? -- Impression and plan: Altered mental status, broad differential. Pending CTH and CT A/P along with a broad metabolic workup. Signed out at 1500 I saw and examined the patient. I agree with my senior housekeeper's documented plan except for the changes in plan outlined above by me. Michael Roblero MD 07/22/2021 2:39 PM [phone] Michael Roblero MD 07/23/21 1115 [facility] Work Phone: [phone] 241-696705-10-2022 Emergency department Note* Sarai Ley RN - 07/22/2021 2:36 PM EDT Bed: E038 Expected date: 07/22/21 Expected time: Means of arrival: EMS Comments: [facility] Emergency department Note* Sarai Ley RN - 07/22/2021 2:30 PM EDT Right sided deficits form old stroke, state that this morning he had a change in mentation. Poor report noted from Rehab. Recent admission at this facility. [facility]-10[facility]22 Physician Emergency department Note* Mirza Ritchie MD - 07/22/2021 2:21 PM EDT EMERGENCY DEPARTMENT ENCOUNTER CHIEF COMPLAINT Stroke alert DAYLIN Aquion is a 76 y.o. male who has a past medical history of Anemia, Central cord syndrome, HTN (hypertension), and Obesity. This patient presents as a stroke alert. 76 yom w/ a PMH of L MCA CVA status post tPA on July 12, 2021 recently discharge on 07/18/21, central cord syndrome w/ known deficits, atrial fibrillation known ACOMM aneurysm, htn, history of paraplegia secondary to a C6 fracture, neurogenic bladder requiring straight catheterizations who presented initially to an outside hospital from his facility with concern for altered mental status earlier today with an unknown last known well. Further review of systems limited secondary to the patient's baseline aphasia. Recent L MCA CVA discharged on 07/18/21. Known ACOMM aneurysm. REVIEW OF SYSTEMS Review of systems including constitutional, skin, HEENT, eyes, CV, respiratory, GI, , MSK, endocrine, neurologic, psychiatric, heme reviewed and negative except as noted above. PAST MEDICAL HISTORY Past Medical History: Diagnosis Date Anemia Central cord syndrome HTN (hypertension) Obesity SURGICAL HISTORY Past Surgical History: Procedure Laterality Date PLACEMENT CATH SELECTIVE INTERNAL CAROTID ARTERY W/ ANGIO IPSILAT INTRACRANIAL CAROTID W/ RAD S&I N/A 07/15/2021 Laterality: N/A; Surgeon: Bill Serrato MD; Location: [facility] MAIN OR PACEMAKER PLACEMENT N/A 02/18/2015 Laterality: N/A; Surgeon: Colton Daly MD; Location: [facility] CERVICAL FUSION C6/C7 CURRENT MEDICATIONS Current Outpatient Medications Medication Sig aspirin 81 MG Chew Tab chewable tablet Chew 1 tablet daily for 8 days. atorvastatin 40 MG tablet Take 1 tablet by mouth at bedtime. baclofen 10 MG Tab take 0.5-1 tablets by mouth at bedtime.. (Patient not taking: Reported on 12/31/2015 ) carveDILOL 12.5 MG tablet Take 1 tablet by mouth every 12 hours. citalopram 40 MG Tab take 1 tablet by mouth at bedtime. DISABILITY PLACARD Disability placard end date 04/10/2019 docusate sodium-benzocaine 20-283 MG Enema enema 1 enema by Rectal route every evening at 6 PM. (Patient not taking: Reported on 10/29/2015 ) ferrous sulfate 324 (65 FE) MG Tab DR take 1 tablet by mouth 3 times daily. (Patient not taking: Reported on 10/29/2015 ) finasteride 5 MG Tab take 5 mg by mouth daily.. gabapentin 100 MG Cap take 2 capsules by mouth 3 times daily. (Patient taking differently: take 200mg by mouth 2 times daily.. 2 caps in am and 2 caps in pm. ) lisinopril 20 MG tablet Take 20 mg by mouth daily. melatonin 3 MG Tab take 3 mg by mouth at bedtime.. Methenamine Hippurate 1 g Tab take 1 g by mouth daily.. NIFEdipine 30 MG Tab SR 24 HR Take 1 tablet by mouth daily. Nutritional Supplements (ENSURE COMPLETE PO) take 1 Can by mouth 4 times daily. nystatin [id number] UNIT/GM Powder 1 Application by Topical route 3 times daily. (Patient not taking: Reported on 10/29/2015 ) Probiotic Product (PROBIOTIC DAILY PO) take by mouth.. senna 17.2 MG Tab take 1 tablet by mouth daily. Tamsulosin HCl 0.4 MG Cap take 1 capsule by mouth at bedtime. ALLERGIES Allergies Allergen Reactions Bactrim Ciprofloxacin Hives FAMILY HISTORY Family History Problem Relation Age of Onset Heart Disease - Other Sister has AICD Cancer Mother breast SOCIAL HISTORY Social History Socioeconomic History Marital status: Spouse name: Not on file Number of children: Not on file Years of education: Not on file Highest education level: Not on file Occupational History Not on file Tobacco Use Smoking status: Never Smoker Smokeless tobacco: Not on file Substance and Sexual Activity Alcohol use: No Alcohol/week: 0.0 standard drinks Drug use: No Sexual activity: Not on file Other Topics Concern Not on file Social History Narrative Not on file Social Determinants of Health Financial Resource Strain: Not on file Food Insecurity: Not on file Transportation Needs: Not on file Physical Activity: Not on file Stress: Not on file Social Connections: Not on file Intimate Partner Violence: Not on file Housing Stability: Not on file PHYSICAL EXAM Vital Signs:Smoking Status Never Smoker Constitutional: in no acute distress. HENT: atraumatic. Oropharynx is clear and moist. Neck: Neck supple. Cardiovascular: Normal rate and regular rhythm. No murmurs, rubs, gallops Pulmonary: Effort normal, non-labored. Good aeration and symmetric breath sounds. No wheezes or Rhonchi. Abdominal: Abdomen severely distended MSK: No deformities, joint effusions. Neurological: -Eyes open spontaneously -R pupil 3, L pupil 2, both reactive to light b/l -RUE drift -patient aphasic and exam limited Skin: Skin is warm and dry. No rashes or wounds noted. Psychiatric: Unable to assess Labs: No results found for this visit on 07/22/21. Radiology: No orders to display ED COURSE & MEDICAL DECISION MAKING Assessment: Ignacio Aquino is a 76 y.o. male who presents with: Level 2 stroke alert This patient with a complicated history including a recent left MCA stroke status post tPA presentsas a transfer from an outside hospital with concern for worsening mental status from his chronically depressed baseline (aphasic with paraplegia versus tetraplegia). CT head and CT angiogram brain and neck at outside hospital were without any evidence of any new/acute intracranial processes. Repeat CT head here also negative for any new/acute intracranial process. EKG demonstrates normal sinus rhythm with normal axis, normal intervals, no acute ST segment changes, no acute T-wave changes. High sensitivity troponin within normal limits. Cardiac ischemia unlikely. CBC unremarkable. INR 1.2. Urinalysis demonstrated leukocyte esterase and pyuria; however, negativefor bacteriuria or nitrates. Will defer antibiotics at this time. Urine culture sent. Chemistry unremarkable. Lipase within normal limits, pancreatitis excluded. LFTs unremarkable. TSH elevated; however, free T4 within normal limits. Chest x-ray without any consolidation, pneumothorax, or change in cardiomegaly. CT abdomen pelvis read well as the negative for any acute abnormalities in the abdomen and pelvis. There is some evidence of stool burden in the large colon. No evidence of small-bowel obstruction. Plan to treat for evidence of constipation with an enema. Will defer further bowel regimen to the inpatient team. Plan to admit to medicine while awaiting MRI brain without per Neurology and for further evaluationof possible acute on chronic encephalopathy. Plan for the patient was discussed with attending physician with alterations made to the plan as needed. Note was written using voice recognition software. Please excuse any misspellings or word substitutions. Mirza Ritchie MD Resident 07/22/21 5626 [facility] Work Phone: [phone] Note* Nursing Notes - Steffi Worrell RN - 07/18/2021 10:28 AM EDT Transport here for pt. AVS and ANALISA faxed to [facility]. IVs d/c'd without difficulty. Pt inc of a large amount loose brown stool and cleaned. D/c'd via ambulance to [facility]. at bedside and will leave with a friend when they arrive to transport her. [facility] Miscellaneous Notes* Nursing Notes - Steffi Worrell RN - 07/18/2021 10:28 AM EDT Transport here for pt. AVS and ANALISA faxed to [facility]. IVs d/c'd without difficulty. Pt inc of a large amount loose brown stool and cleaned. D/c'd via ambulance to [facility]. at bedside and will leave with a friend when they arrive to transport her. * Nursing Notes - Mayela Macdonald RN - 07/17/2021 12:21 PM EDT I spoke with Ignacio Aquino this morning as Emergency Services Professional for the [facility] at [facility]. We reviewed the BE FAST sticker (Balance, Eyes, Facialdroop or uneven smile, Arm numbness or weakness - especially on one side, Speech that is slurred ordifficult to talk or understand, and Time to call 911). I then left my card assuring the patient and /or family that they should feel free to contact me with any questions. * Plan of Care - Arabella Palacios OT - 07/16/2021 3:05 PM EDT Problem: OT - ADLs Goal: Grooming Description: Pt will complete grooming Edge of bed with standby assistance for improved ability to safely complete ADLs. Outcome: Ongoing Problem: OT - Cognition Goal: Cognition - Command following Description: Pt will follow 10 % of single commands during ADL task for improved safety and successat discharge destination. Outcome: Ongoing Problem: OT - Transfers Goal: Transfers Toilet/Bedside Commode Description: Pt will transfer to/from toilet/BSC with moderate assistance and of 2 people for improved ability to safely complete ADLs. Outcome: Ongoing * Plan of Care - Kavita Contreras, PT - 07/16/2021 11:12 AM EDT Problem: PT - Balance/Coordination/Neuro Re-Education Goal: Sitting Dynamic/Static Balance Description: Pt will perform seated balance tasks for 20 minutes with contact guard assistance UE support level to improve safety with seated tasks. Outcome: Progressing Toward Goal Problem: PT - Transfers Goal: Supine <-> Sit Description: Pt will perform bed mobility with flat bed & no rail with moderate assistance in order to improve functional mobility and safety. Outcome: Progressing Toward Goal Goal: Sit <-> Stand Description: Pt will perform sit to/from stand transfers with moderate assistance and of 2 people with least restrictive device in order to improve functional mobility and safety. Outcome: Progressing Toward Goal * Plan of Care - Mirza Guerra MD - 07/16/2021 8:31 AM EDT Neurosurgery Update: Consulted for 76 y.o. 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 CTA at OSH with L M2 occlusion, patient given tPA, repeat CTA here with no LVO however did identify a 6 x7 x7 mm acomm aneurysm. 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 - Please have patient follow up with Dr. Serrato in 4 weeks to discuss aneurysm treatment - Neurosurgery will sign-off. Please call with questions. Mirza Guerra MD, Neurosurgery NS2 ([phone]) * Plan of Care - BHASKAR Choi - 07/15/2021 2:15 PM EDT Nutrition Plan of Care: 1. Continue current diet order. 2. Will provide strawberry/ chocolate Ensure Enlive (350 kcal, 20 g PRO each) once daily with Breakfast to optimize intakes and skin integrity. 3. Monitor for significant weight changes. 4. Monitor and encourage po intakes with goal of average po being 50-75%. 5. wind technician to follow. * Plan of Care - Kavita Contreras PT - 07/14/2021 1:11 PM EDT Problem: PT - Balance/Coordination/Neuro Re-Education Goal: Sitting Dynamic/Static Balance Description: Pt will perform seated balance tasks for 20 minutes with contact guard assistance UE support level to improve safety with seated tasks. Outcome: Progressing Toward Goal Problem: PT - Transfers Goal: Supine <-> Sit Description: Pt will perform bed mobility with flat bed & no rail with moderate assistance in order to improve functional mobility and safety. Outcome: Progressing Toward Goal Goal: Sit <-> Stand Description: Pt will perform sit to/from stand transfers with moderate assistance and of 2 people with least restrictive device in order to improve functional mobility and safety. Outcome: Progressing Toward Goal * Plan of Care - Arabella Palacios OT - 07/14/2021 12:38 PM EDT Problem: OT - ADLs Goal: Grooming Description: Pt will complete grooming Edge of bed with standby assistance for improved ability to safely complete ADLs. Outcome: Ongoing Goal: Bathing Description: Pt will perform full body bathing routine with moderate assistance while seated for improved ability to complete self-care activities. Outcome: Ongoing Problem: OT - Visual Scanning Goal: Visual Scanning ADL Description: Pt will employ use of visual compensatory strategies with less than 10% cues to increase participation and safety in ADLs. Outcome: Ongoing Problem: OT - Cognition Goal: Cognition - Command following Description: Pt will follow 10 % of single commands during ADL task for improved safety and successat discharge destination. Outcome: Ongoing Problem: OT - Transfers Goal: Transfers Toilet/Bedside Commode Description: Pt will transfer to/from toilet/BSC with moderate assistance and of 2 people for improved ability to safely complete ADLs. Outcome: Ongoing * Plan of Care - Shaun Dumas RN - 07/14/2021 5:22 AM EDT Problem: Patient Care Overview Goal: Plan of Care Review Outcome: Ongoing Flowsheets (Taken 07/14/2021521) Plan Of Care Reviewed With: significant other Goal: Individualization & Mutuality Outcome: Ongoing Problem: Stroke (Ischemic) (Adult) Goal: Signs and Symptoms of Listed Potential Problems Will be Absent, Minimized or Managed (Stroke) Description: Signs and symptoms of listed potential problems will be absent, minimized or managed by discharge/transition of care (reference Stroke (Ischemic) (Adult) CPG). Outcome: Ongoing * Plan of Care - Kavita Contreras PT - 07/13/2021 12:56 PM EDT Problem: PT - Balance/Coordination/Neuro Re-Education Goal: Sitting Dynamic/Static Balance Description: Pt will perform seated balance tasks for 20 minutes with contact guard assistance UE support level to improve safety with seated tasks. Outcome: Ongoing Problem: PT - Transfers Goal: Supine <-> Sit Description: Pt will perform bed mobility with flat bed & no rail with moderate assistance in order to improve functional mobility and safety. Outcome: Ongoing Goal: Sit <-> Stand Description: Pt will perform sit to/from stand transfers with moderate assistance and of 2 people with least restrictive device in order to improve functional mobility and safety. Outcome: Ongoing Goal: Stand-Pivot Description: Pt will perform stand/pivot transfer to/from bed/chair/commode with moderate assistance and of 2 people with least restrictive device in order to improve functional mobility and safety. Outcome: Ongoing * Plan of Care - JUAN Real - 07/12/2021 4:24 PM EDT Problem: AGRICULTURAL REAL ESTATE AGENT - Language Goal: Establish Yes/No Description: Patient will respond to yes/no questions with a yes/no type response via any modality with maximum cues with 100% accuracy across 1 session to establish a reliable means of communication. Outcome: Ongoing Goal: Command Following Description: Patient will complete simple 1-step commands (minimum of x10) to 80% success with max cues as needed in order to improve direction following for functional gains in ability to participate more independently in care. Outcome: Ongoing Goal: Expressive Language Goal 1 Description: Patient will communicate basic wants/needs via any communication modality on at least 3 opportunities across 1 session to improve functional communication and ability to direct care. Outcome: Ongoing Goal: Automatic Speech Description: Patient will complete automatic speech tasks with 80% accuracy given moderate assist, across 1-2 session(s) to improve word-finding and functional communication. Outcome: Ongoing * Certification - Jaxon Dahl MD - 07/12/2021 1:05 PM EDT I certify that this patient requires inpatient services at this time. I anticipate the expected length of stay will include at least two midnights. Inpatient services are due to the following medicalconcerns: stroke. Plans for post hospitalization care will be [facility] to [facility]. [facility] [place] History of Present illness Narrative* CORRIE Mathias - 07/18/2021 9:10 AM EDT Social Work Final Discharge Plan and Transportation Final Discharge Planning Discharge Disposition: Inpatient Rehab Facility Services at Discharge: Speech Therapy, Occupational Therapy, Physical Therapy Community Agency Name(s) For Handoff: [facility]PR Name For Handoff: PRUDENCIO Fermin Phone For Handoff: [phone] Fax For Handoff: Selected Continued Care - Admitted Since 07/12/2021 Destination Coordination complete. Service Provider Selected Services Address Phone Fax Patient Preferred [facility] Inpatient Rehabilitation [address] [facility] [address] -- -- Plan Plan: Discharge to inpatient rehab Patient/Family In Agreement With Plan: yes Diffusion Furnace Operator Called: Yes Name of Transport Company: [facility] ETA of Ambulance: 10 AM Tuesday 07/18 Transfer Mode: gurney Mode of Transfer: ambulance Transfer/Transport Equipment: copy of patient Records Patient medically stable for discharge per physician/medical team. SW confirmed with [facility] that they are able to accept the patient this date. Insurance pre-certification is not required. SW arranged transport as indicated above, ETA is 10 AM. The patient has no specialized equipment needs for transportation. AVS/ANALISA completed from a SW standpoint. SW updated the bedside RN, CCM, facility and patient/equal opportunity representative of the discharge plan and transport time. Patient/Band Director remain inagreement with the discharge plan. Bedside RN to call report and fax AVS/ANALISA. Ambulance form left at the loading unit operator powder charging desk with a request for a printed transfer report. Discharge Instruction for Bedside RN: 1. Confirm the Ambulatory Order is in the ANALISA. 2. Print the ANALISA and AVS. 3. Print the Discharge Summary for facilities (if available). 4. Fax ANALISA, AVS and Discharge Summary (when applicable) to agency or facility. 5. Call the agency or facility for report. LIYAH Umaña LISW-S Exercise Instruct for BS * Joss Engle - 07/18/2021 8:57 AM EDT Final Discharge Planning and Transportation Final Discharge Planning Discharge Disposition: Inpatient Rehab Facility Services at Discharge: Physical Therapy, Occupational Therapy, Senior Care, Speech Therapy Selected Continued Care - Admitted Since 07/12/2021 Destination Coordination complete. Service Provider Selected Services Address Phone Fax Patient Preferred [facility] Inpatient Rehabilitation [address] [facility] [id number] -- -- Plan Plan: Pt is discharging to his local IP rehab. He has outpatient follow-up as noted on the AVS. Patient/Family In Agreement With Plan: yes Transportation 10:00am as arranged by [facility]. Discharge Instructions for Bedside RN: 1. Print off ANALISA 2. Print off AMB order (found toward top of ANALISA) 3. Print off AVS 4. Prrint off Discharge Summary, if available 5. Fax all to agency/vendor, then call for report To find agency info: Please look at the top of the ANALISA for phone and fax. LIYAH Herrera LISW-S, [facility]- Clinical Dental Hygiene InstructorBowling Alley Floors Installer [phone] * CORRIE Mathias - 07/17/2021 1:43 PM EDT Placement Plan Expected Discharge Date: 07/18/2021 Referred Level of Care: IPR Barriers: transportation Current Referrals and Status 1. [facility] IPR- accepted Transport arranged for tomorrow at 10 AM with [facility]. LIYAH Umaña LISW-S Exercise Instruct for 10 BSH * Calista Bowers - 07/16/2021 3:45 PM EDT Ignacio Aquino's case has been reviewed and he has been denied for IPR at [facility]. He does not appear as if he would be able to tolerate 3 hours of therapy/day and unlikely to be able to achieve discharge to home within IPR length of stay. Thank you for the referral, Kayla BowersPT [facility] Garage Laborer [phone] * CORRIE Mathias - 07/16/2021 2:49 PM EDT Placement Plan Expected Discharge Date: 07/18/2021 Referred Level of Care: IPR Barriers: medical Current Referrals and Status 1. [facility]- denied 2. [facility] IPR- accepted SW met with pt and spouse at bedside and updated her on status of referrals listed above. Spouse states she is in agreement with placement at [facility]. SW notified facility and will arrange discharge. LIYAH Umaña LISW-S Exercise Instruct for 10 BSH * Calista Bowers - 07/16/2021 1:09 PM EDT Referral has been received to evaluate for admission to [facility] for Inpt. Rehab. Will review with PM&R physician and notify you of the determination. Thank you for the referral, Kayla Bowers PT [facility] Garage Laborer [phone] * Kavita Contreras, PT - 07/16/2021 11:12 AM EDT Acute Physical Therapy Treatment Prior to Admission [facility] score(s): PRIOR LEVEL AM-PAC Mobility Raw Score: 21 Current AM-PAC score(s): CURRENT AM-PAC Mobility Raw Score: 7 Based on the above AM-PAC score(s) and PT clinical judgment, patient is a good candidate for discharge to Senior Care Facility Discharge Barriers: Patient needs assistance with functional mobility Mobility equipment available at home: quad cane, power wheelchair, 2 wheeled walker, 4 wheeled walker ADL equipment available at home: shower chair (rolling shower chair) Equipment needed for discharge: to be determined Current therapy frequency recommendation in acute: Therapy Frequency: 5 times a week Precautions and Weightbearing Status: Existing Precautions/Restrictions: fall Patient Safety Communication Prior to Visit: Nursing Respiratory Status O2 Device: room air Subjective: Pt alert with eyes open and vocalizing (most unintelligible) throughout session, however patient does clearly state yes/no but not accurate Pain: General Pain Documentation (Adult, OB, Peds) Presence of Pain: non-verbal indicator of pain/discomfort not present Objective/Observation: Vitals/Vitals Responses to Treatment: WFL Cognition Overall Cognitive Status: Impaired Arousal/Alertness: Inconsistent responses to stimuli Orientation Level: (difficult to assess) Cognition Comments: difficult to fully assess cognition due to patient aphasia Extremity Assessments: See PT Evaluation flowsheet for Extremity Measurement updates. Balance: Sitting Balance Static Sitting-Level of Assistance: Contact guard (occasional min) Dynamic Sitting-Level of Assistance: Moderate assistance Skilled Rationale: Hand placement, Sequencing, Positioning, Verbal cues, Full extension to upright positioning/posture, Finding/maintaining midline positioning Sitting Balance Skilled Intervention/Details: Pt completed edge of bed sitting x 15-16 minutes to increase core strength and endurance, pt required contact guard assist with intermittent min due to retro leaning. Standing Balance Static Standing-Level of Assistance: Maximum assistance, 2-person assist Standing-Balance Support: Gait belt Skilled Rationale: Positioning, Sequencing, Hand placement Standing Balance Skilled Intervention/Details: Pt completed static standing with WW and mod assist of 2 at partial stand. Despite max assist of 2 patient unable to improve trunk extension. Pt able toachieve 50% full upright posture. Pt tolerated standing up to 45 seconds to 1 minute each attempt before requiring a sitting rest break Mobility Assessment/Intervention: Supine to Sit Mobility [place] Level: Supine->Sit: maximum assist (25% patient effort) Physical Assist: Supine->Sit: 2 person assist Bed Features/Set-up: Supine->Sit: Head of bed elevated, Use of bed rail Skilled Rationale: Sequencing, Positioning, Hand placement, Verbal cues Skilled Intervention/Details: Supine->Sit: Despite increased time and cues patient required max assist of 2 Sit to Supine Mobility [place] Level: Sit->Supine: maximum assist (25% patient effort) Physical Assist: Sit->Supine: 2 person assist Bed Features/Set-up: Sit->Supine: Flat, Use of bed rail Skilled Rationale: Positioning, Sequencing, Hand placement, Verbal cues Transfer Assessment/Intervention: Sit to Stand Transfer [place] Level: Sit->Stand: maximum assist (25% patient effort) Physical Assist: Sit->Stand: 2 person assist Assistive Device: Sit->Stand: 2 wheeled walker, gait belt Skilled Rationale: Positioning, Sequencing, Verbal cues, Patellar block, Hand placement, Facilitateanterior shift Skilled Intervention/Details: Sit->Stand: Pt completed sit to stand from EOB with max assist of 2, pt with improved initation of stand when using WW vs no AD, however still required same assist ofmax assist of 2. pt completed mulitple sit to stands from EOB Gait/Functional Mobility Assessment/Intervention: Stairs Assessment/Intervention: Outcome Score(s): CURRENT [facility] Basic Mobility Inpatient Short Form Turning over in bed: 2 - A Lot of Assistance Sitting/standing from chair: 1 - Total Assistance Moving from lying on back to sittin - Total Assistance Moving to and from bed to chair: 1 - Total Assistance Walk in hospital room: 1 - Total Assistance Climbing 3-5 steps with a railin - Total Assistance CURRENT [facility] Mobility Raw Score: 7 CURRENT [facility] Mobility Functional Limitation/Modifier: 92.36% Currently Impaired in Basic Mobility- CM Interventions: Intervention 1 Intervention Name: LE ther ex Sets/Reps/Duration: Pt with decreased command following for formal ther ex, however completed active assist/passive range of motion EOB Assessment & Plan: Pt making fair progress toward therapy goals Patient Instruction/Education this session: bed mobility, transfers, there ex, balance Plan for next session: Continue to progress mobility as patien tolerates Acute PT Goals Plan of Care by Kavita Contreras PT at 07/16/2021 11:12 AM Version 1 of 1 Problem: PT - Balance/Coordination/Neuro Re-Education Goal: Sitting Dynamic/Static Balance Description: Pt will perform seated balance tasks for 20 minutes with contact guard assistance UE support level to improve safety with seated tasks. Outcome: Progressing Toward Goal Problem: PT - Transfers Goal: Supine <-> Sit Description: Pt will perform bed mobility with flat bed & no rail with moderate assistance in order to improve functional mobility and safety. Outcome: Progressing Toward Goal Goal: Sit <-> Stand Description: Pt will perform sit to/from stand transfers with moderate assistance and of 2 people with least restrictive device in order to improve functional mobility and safety. Outcome: Progressing Toward Goal PT treatment consisted of Therapeutic Activity, Therapeutic Procedure and Neuro Muscle Re-Educationto work and progress towards above goal(s). Treating Therapist: Kavita Contreras PT Additional Details: Co-evaluation/co-treatment performed?: Yes, simultaneous billable skilled care This co-treatment session performed between PT and OT was beneficial, necessary and provided distinct services in progressing this person's individual plan of care. Medical complexity with functionaldeficits that necessitate two skilled therapy disciplines working concurrently to optimize patient's progress towards each discipline's goals. This co-treatment was medically necessary due to patient's: Coordination issues and Postural control. Patient benefits from simultaneous treatment from another therapy discipline to maximize progress towards All Physical Therapy goals. I was assisted by GIANNA Booker for today's session. and I used facemask, protective eye shield, and gloves in today's patient interaction. Patient location at end of session: bed with head of bed elevated Alarms on at end of session: bed alarm Needs in reach. Time In: 1028 Time Out: 1052 Total Visit Time: 24 minutes Total Treatment Time (skilled, billable minutes): 24 minutes Upon discontinuation of Acute Care Physical Therapy Services or patient discharge from the hospitalthis note represents the current Physical Therapy Discharge Summary. * Arabella Palacios OT - 07/16/2021 10:51 AM EDT Acute Occupational Therapy Treatment Prior to Admission AM-PAC Score: PRIOR LEVEL AM-PAC Mobility Raw Score: 21 Current AM-PAC score(s): CURRENT AM-PAC Activity Raw Score: 10 Based on the above AM-PAC score(s), and OT clinical judgment, discharge destination recommendation is: Senior Care Facility Discharge Barriers: Patient needs assistance with ADLs, Patient needs assistance with functional mobility, Patient needs assistance with IADLs (see note below) Mobility equipment available at home: quad cane, power wheelchair, 2 wheeled walker, 4 wheeled walker ADL equipment available at home: shower chair (rolling shower chair) Equipment recommendations for discharge: Current therapy frequency recommendation(s) in acute: 5 times a week Precautions and Weightbearing Status: OT Existing Precautions/Restrictions: fall Patient Safety Communication Prior to Visit: Nursing Subjective: Verbal throughout, but nonsensical speech Pain: General Pain Documentation (Adult, OB, Peds) Presence of Pain: non-verbal indicator of pain/discomfort not present Objective/Observation: Vitals/Vitals Responses to Treatment: VSS Cognition Overall Cognitive Status: Impaired Arousal/Alertness: Inconsistent responses to stimuli Orientation Level: (Appeared to alert to name) Following Commands: Follows one step commands consistently, Follows one step commands with repetition Safety Judgment: Decreased awareness of need for safety, Decreased awareness of need for assistance Awareness of Errors: Assistance required to correct errors made, Decreased awareness of errors ADL Assessment/Intervention: ADLs: ADL Assessment: Grooming Deficit Grooming Assistance: Maximal Grooming Location: edge of bed Grooming Deficit: Activity tolerance, Generalized weakness, Sequencing, Initiation, Attention Grooming Skilled Rationale (Verbal/Tactile/Visual/Demonstration): [id number] assist Grooming Intervention/Details: max hand over hand assist to initiate use of ADL objects at EOB. Once toothbrush in pt's hand, pt able to brush his teeth with assist to sequence task. Toilet Assistance: Total Toileting Deficit: Activity tolerance, Bowel incontinence Toilet Skilled Rationale (Verbal/Tactile/Visual/Demonstration): Setup, Supervision, Technique of activity Balance: Sitting Balance Static Sitting-Level of Assistance: Contact guard Dynamic Sitting-Level of Assistance: Moderate assistance Skilled Rationale: Verbal cues, Hand placement Standing Balance Static Standing-Level of Assistance: Maximum assistance, 2-person assist Standing-Balance Support: Gait belt Skilled Rationale: Hand placement, Sequencing, Positioning Mobility Assessment/Intervention: Supine to Sit Mobility [place] Level: Supine->Sit: maximum assist (25% patient effort) Physical Assist: Supine->Sit: 2 person assist Bed Features/Set-up: Supine->Sit: Head of bed elevated Skilled Rationale: Verbal cues, Hand placement Transfer Assessment/Intervention: Sit to Stand Transfer [place] Level: Sit->Stand: maximum assist (25% patient effort) Physical Assist: Sit->Stand: 2 person assist Assistive Device: Sit->Stand: gait belt, 2 wheeled walker Skilled Rationale: Hand placement, Verbal cues, Sequencing, Positioning Skilled Intervention/Details: Sit->Stand: X 3 trials from EOB. Max cues for upright posture throughout with minimal correction CURRENT [facility] Daily Activity Inpatient Short Form Putting on/Taking Off Lower Body Clothin - Total Assistance Bathin - A Lot of Assistance Toiletin - Total Assistance Putting on/Taking Off Upper Body Clothin - A Lot of Assistance Groomin - A Lot of Assistance Eatin - A Lot of Assistance CURRENT [facility] Activity Raw Score: 10 CURRENT [facility] Activity Functional Limitation/Modifier: 74.70% Currently Impaired in Daily Activity- CL Interventions: Intervention 1 Intervention Name: Command follow Details: Completed single one step command following task with <10% accuracy Assessment & Plan: Pt with limited progress towards goals. Significantly limited by cognition this date and aphasia. Minimal commands followed this session even with familiar ADL objects. Max assist X 2 for all transfers and standing tasks. Due to pt's deficits in transfers, endurance, participation in ADls, pt wouldbenefit from continued OT services before safe discharge home. Plan for next session: Address command follow Acute OT Goals Plan of Care by Arabella Palacios OT at 07/16/2021 3:05 PM Version 1 of 1 Problem: OT - ADLs Goal: Grooming Description: Pt will complete grooming Edge of bed with standby assistance for improved ability to safely complete ADLs. Outcome: Ongoing Problem: OT - Cognition Goal: Cognition - Command following Description: Pt will follow 10 % of single commands during ADL task for improved safety and successat discharge destination. Outcome: Ongoing Problem: OT - Transfers Goal: Transfers Toilet/Bedside Commode Description: Pt will transfer to/from toilet/BSC with moderate assistance and of 2 people for improved ability to safely complete ADLs. Outcome: Ongoing OT treatment consisted of ADL retraining, balance training, bed mobility training, neuromuscular re-education and transfer training to work and progress towards above goal(s). Treating Therapist: Arabella Palacios OT Additional Details: Co-evaluation/co-treatment performed?: Yes, simultaneous billable skilled care This co-treatment session performed between OT and PT was beneficial, necessary and provided distinct services in progressing this person's individual plan of care. Medical complexity with functionaldeficits that necessitate two skilled therapy disciplines working concurrently to optimize patient's progress towards each discipline's goals. This co-treatment was medically necessary due to patient's: Postural control. Patient benefits from simultaneous treatment from another therapy discipline to maximize progress towards stated Occupational Therapy goals. I used facemask, protective eye shield, and gloves in today's patient interaction. Patient location at end of session: bed with head of bed elevated Alarms on at end of session: bed alarm Needs in reach. Time In: 1027 Time Out: 1051 Total Visit Time: 24 minutes Total Treatment Time (skilled, billable minutes): 24 minutes Upon discontinuation of Acute Care Occupational Therapy Services or patient discharge from the hospital this note represents the current Occupational Therapy Discharge Summary. * Joss Engle - 07/16/2021 10:20 AM EDT Progression of Care Note Expected Discharge Date: 07/18/21 Medical Milestones Remaining: S/p DCA yesterday. Needs MRI and echo. Need AC plan for afib. Assessment and Discharge Plan as of 07/16/2021 10:20 AM Anticipate pt will need SNF vs IP rehab. Pt has Neurovascular follow-up appointment scheduled 08/07. Needs Nsgy with Dr Serrato in 4 weeks. Anticipated discharge disposition: Senior Care Facility (vs IP Rehab) Anticipated Services at Discharge: Physical Therapy, Occupational Therapy, Senior Care, Speech Therapy, Outpatient follow up Barriers to Discharge: Uninsured/Underinsured Explanation of Barriers: Pt does not have rx insurance coverage Readmission Risk Score Risk of Readmission: 2.6 Category Reference: High:16-100 Mod-High:10-16 Mod-Low: 5-10 Low: 0-5 Joss Martin, PHYSICS PROFESSOR, SYSTEM MANAGER-S, ACM-SW Clinical Dental Hygiene InstructorBowling Alley Floors Installer [phone] * Mikhail Morrison, DT - 07/15/2021 2:14 PM EDT NOTE Nutrition Plan of Care: 1. Continue current diet order. 2. Will provide strawberry/ chocolate Ensure Enlive (350 kcal, 20 g PRO each) once daily with Breakfast to optimize intakes and skin integrity. 3. Monitor for significant weight changes. 4. Monitor and encourage po intakes with goal of average po being 50-75%. 5. wind technician to follow. Ignacio Aquino is a 76 y.o. male admitted with a past medical history significant for hypertension, [id number] + post-traumatic myelopathy w/ C5 incomplete tetraplegia, neurogenic bladder + bowel, depression, anxiety, traumatic optic neuropathy, who presents as a Level 1 Stroke Alert. Information obtained from family Precipitation Equipment Tender Screening Pt's appetite is poor. Pt with constipation. Pt with no issues with chewing and/or swallowing. Pt with unsure of any weight changes. Past History Past medical, surgical, family, and social histories have been reviewed and are located elsewhere in the medical record. Height: 5' 9'' (obtained from ) Admit wt: No admit wt Pt has no current weight/height so unable to calculate pt anthropometrics. Wt Readings from Last 10 Encounters: 06/30/16 96.6 kg (213 lb) 10/29/15 89.4 kg (197 lb 3.2 oz) 04/10/15 86.2 kg (190 lb) 03/25/15 86.6 kg (191 lb) 02/19/15 87.1 kg (192 lb) Unable to identify any wt loss or gain. No current wt or recent weights recorded. Current Diet Orders Procedures DIET REGULAR Standing Status: Standing Number of Occurrences: 1 Food Allergies reviewed:NKFA Cultural or Anabaptism Restrictions/Preferences: none Skin Candace Score: 14 STAND skin bundle initiated Active Wounds: Sheath Site Assessment (Wound) Right radial (0) Wound (Adult, Pediatric) gluteal suspected pressure injury Edema: 1+(trace): L/R leg, L/R ankle and 2+(mild): L/R foot Summary Pt is at nutrition risk due to current admit, chronic conditions, recent stroke, advanced age, poorappetite, poor po intake, and low candace score. Obtained information from . Pt's stated she thinks he is 5' 9'' and between 240- 250 lb, however unable to accurately identify. Pt has no current weight/ height so unable to calculate pt anthropometrics. Pt's reports him having constipation. states he might be up to trying an Ensure but she doubts he will drink it. Pt is on the STAND skin bundle. (Will provide Ensure oral supplement with breakfast meal to optimize nutrition to help promote good skin integrity/prevent skin breakdown/promote wound healing, and optimize intakes. Mo nitor for tolerance and any changes. Anjelica Felder [facility] Gear Machinist Student Cosigned by: BHASKAR Choi at 07/15/2021 2:14 PM * Anjelica Felder - 07/15/2021 1:34 PM EDT NUTRITION RISK SCREENING NOTE Nutrition Plan of Care: 1. Continue current diet order. 2. Will provide strawberry/ chocolate Ensure Enlive (350 kcal, 20 g PRO each) once daily with Breakfast to optimize intakes and skin integrity. 3. Monitor for significant weight changes. 4. Monitor and encourage po intakes with goal of average po being 50-75%. 5. wind technician to follow. Ignacio Aquino is a 76 y.o. male admitted with a past medical history significant for hypertension, [id number] + post-traumatic myelopathy w/ C5 incomplete tetraplegia, neurogenic bladder + bowel, depression, anxiety, traumatic optic neuropathy, who presents as a Level 1 Stroke Alert. Information obtained from family Precipitation Equipment Tender Screening Pt's appetite is poor. Pt with constipation. Pt with no issues with chewing and/or swallowing. Pt with unsure of any weight changes. Past History Past medical, surgical, family, and social histories have been reviewed and are located elsewhere in the medical record. Height: 5' 9'' (obtained from ) Admit wt: No admit wt Pt has no current weight/height so unable to calculate pt anthropometrics. Wt Readings from Last 10 Encounters: 06/30/16 96.6 kg (213 lb) 10/29/15 89.4 kg (197 lb 3.2 oz) 04/10/15 86.2 kg (190 lb) 03/25/15 86.6 kg (191 lb) 02/19/15 87.1 kg (192 lb) Unable to identify any wt loss or gain. No current wt or recent weights recorded. Current Diet Orders Procedures DIET REGULAR Standing Status: Standing Number of Occurrences: 1 Food Allergies reviewed:[facility] Cultural or Anabaptism Restrictions/Preferences: none Skin Candace Score: 14 STAND skin bundle initiated Active Wounds: Sheath Site Assessment (Wound) Right radial (0) Wound (Adult, Pediatric) gluteal suspected pressure injury Edema: 1+(trace): L/R leg, L/R ankle and 2+(mild): L/R foot Summary Pt is at nutrition risk due to current admit, chronic conditions, recent stroke, advanced age, poorappetite, poor po intake, and low candace score. Obtained information from . Pt's stated she thinks he is 5' 9'' and between 240- 250 lb, however unable to accurately identify. Pt has no current weight/ height so unable to calculate pt anthropometrics. Pt's reports him having constipation. states he might be up to trying an Ensure but she doubts he will drink it. Pt is on the STAND skin bundle. (Will provide Ensure oral supplement with breakfast meal to optimize nutrition to help promote good skin integrity/prevent skin breakdown/promote wound healing, and optimize intakes. Mo tayloror for tolerance and any changes. Anjelica [facility] Gear Machinist Student * Kavita Contreras, PT - 07/15/2021 12:00 PM EDT Physical Therapy Attempt Note 07/15/2021 PT Therapy Completed: Attempted Attempted Reason: Patient is unavailable due to test/procedure Kavita Contreras PT Time In: 1200 Time Out: 1200 Total Visit Time: 0 minutes Total Treatment Time (skilled, billable minutes): 0 minutes * Arabella Palacios OT - 07/15/2021 11:12 AM EDT Occupational Therapy Attempt Note 07/15/2021 OT Therapy Completed: Attempted Attempted Reason: Patient is unavailable due to test/procedure Arabella Palacios OT Time In: 1111 Time Out: 1111 Total Visit Time: 0 minutes Total Treatment Time (skilled, billable minutes): 0 minutes * JUAN Valente - 07/15/2021 10:29 AM EDT Speech Language Pathology Attempt Note 07/15/2021 AGRICULTURAL REAL ESTATE AGENT Therapy Completed: Attempted Attempted Reason: Patient is unavailable due to test/procedure JUAN Valente Time In: 1029 Time Out: 1029 Total Visit Time: 0 minutes Total Treatment Time (skilled, billable minutes): 0 minutes * Joss Engle - 07/14/2021 3:37 PM EDTSummary: Initial Assessment Discharge Planning Patient Assessment Admission Assessment Patient Assessment Completed: Yes Anticipated discharge disposition: Senior Care Facility (vs IP Rehab) Reason for Admission: stroke workup Is the patient able to participate in the assessment?: No Explanation of why patient is unable to participate: AMS Information source: Spouse Information Source Name/Contact: Zach Aquino Demographics Verified and Updated: Yes Has the patient been admitted to any hospital in the last 30 days?: Transferred From Outside Hospital ([facility]) Advanced Care Planning Has the patient completed Advance Directives?: Completed, Not Available in Medical Record Copy of Advance Directives was requested?: Yes Advance Directives Requested From: spouse Legal Next of Kin Does the patient have a Guardian?: No Spouse: Yes Name and Contact information: Zach Aquino [phone] Adult Child(meme), List All Adult Children: Yes Name and Contact information: Bartolo Aquino, Bulmaro [place] Aquino (all #s in demographics) Would you like to add additional adult children?: No Reviewed and Updated in Demographics? : Yes Outpatient Providers Does patient have a primary care physician? : Yes When was the patient's last PCP visit?: > 30 days Does the patient follow any specialists?: Yes Reviewed and updated Care Team?: Yes Patient Care Team: Mallory Mcpherson DO as PCP - General (Family Medicine) Ignacio Quan MD as PCP - Referring 1 (Cardiovascular Medicine) Heath Mcdowell MD as PCP - Referring 2 (Neurological Surgery) Caesar Doshi MD (Urology) Environment/Caregivers Is the patient from a facility or prison?: No Patient lives with: Spouse or Partner Living Environment: House How many steps does the patient have to navigate to enter or inside the home? : ramp Does the patient have a first floor set-up with bed and bathroom?: Yes Patient Caregiving Responsibilities: Self Patient-identified caregiver/support network: Family, Friends, Faith Who does the patient identify as a teachable caregiver(s)?: Spouse or Partner Services Does the patient use a home health or hospice agency?: No Current with dialysis?: No Does the patient use any community programs or services?: No Does patient use DME? : quad cane, walker, rollator, shower seat (power w/c) Does the patient use oxygen?: No Does patient use medical supplies? : other Explanation of other supplies: Straight cath supplies How does patient obtain supplies?: supply company Medical Supplier Name and Phone/Fax: [employer] Would you like to add additional medical suppliers?: No Anticipated Changes Related to Illness/Injury? : Unknown at this time Initial ADLs Prior to Arrival What is the patient's baseline physical functioning prior to this acute illness?: assist with ADLs (but still working, driving) What is the patient's baseline cognitive functioning prior to this acute illness?: independent Is the patient's baseline functioning changed by this acute illness? : Unable to assess Concerns with patient being able to care for themselves at home? : Yes Are there therapy or specialists consults?: Yes Select consult type: PT, OT, AGRICULTURAL REAL ESTATE AGENT, Social Work Does the patient's home require any home modifications for discharge? : No CM to recommend therapy or other consults? : No Medication Management Does the patient have prescription insurance coverage? : No (spouse says they use any discount cards that their pharmacy offers if needed) Is the patient on Anticoagulation? : No (he was prescribed something but didn't take it) [employer] [address] [place] [address] [phone] [place] [address] Floodplain Manager Does the patient or equal opportunity representative express financial concerns? : No Employed?: Yes Coping/Stress Concerns about patient s coping and stress?: Unable to Assess Concerns about patient s caregiver s coping and stress?: No Values and Beliefs Cultural or oriental orthodox practices that may impact discharge planning and/or medical care?: No Initial Discharge Planning Anticipated discharge disposition: Senior Care Facility (vs IP Rehab) Transportation Available for Discharge: Ambulance Anticipated DME: none Anticipated Services at Discharge: Physical Therapy, Occupational Therapy, Senior Care, Speech Therapy, Outpatient follow up Patient Assessment Completed: Yes Risk of Readmission: 5.9 Category Reference: High:16-100 Mod-High:10-16 Mod-Low: 5-10 Low: 0-5 Expected Discharge Date: 07/16/21 Discharge Planning Summary Pt lives with spouse and required some assistance with ADLs and the use of DME RESEARCH PROGRAMMER due to a spinal cord injury in 2014. He was still fairly independent and driving prior to this acute stroke. Discussed recommendation for SNF at discharge. Pt/family are also familiar with [facility] level of care as he went to [facility] to rehab his prior injury. Pt's spouse says she would like to discuss discharge planswith their 3 sons. Case Management Plan 1. Introduced role of CM to pt. CM to follow for care coordination and discharge planning needs. 2. SW updated. 3. Neurovascular follow-up appointment scheduled for 08/07/21. Joss Martin, PHYSICS PROFESSOR, SYSTEM MANAGER-S, ACM-BUZZ Clinical Dental Hygiene InstructorBowling Alley Floors Installer [phone] * Kavita Contreras, PT - 07/14/2021 1:11 PM EDT Acute Physical Therapy Treatment Prior to Admission AMPA score(s): PRIOR LEVEL AM-PAC Mobility Raw Score: 21 Current AM-PAC score(s): CURRENT AM-PAC Mobility Raw Score: 7 Based on the above AM-PAC score(s) and PT clinical judgment, patient is a good candidate for discharge to Senior Care Facility Discharge Barriers: Patient needs assistance with functional mobility Mobility equipment available at home: quad cane, power wheelchair, 2 wheeled walker, 4 wheeled walker ADL equipment available at home: shower chair (rolling shower chair) Equipment needed for discharge: to be determined Current therapy frequency recommendation in acute: Therapy Frequency: 5 times a week Precautions and Weightbearing Status: Existing Precautions/Restrictions: fall Patient Safety Communication Prior to Visit: Nursing Respiratory Status O2 Device: nasal cannula Flow (L/min): 2 Subjective: Pt aphasic but alert and appears agreeable to participate in therapy session Pain: General Pain Documentation (Adult, OB, Peds) Presence of Pain: non-verbal indicator of pain/discomfort present Pain Location: generalized Objective/Observation: Vitals/Vitals Responses to Treatment: WFL Cognition Overall Cognitive Status: Impaired Arousal/Alertness: Inconsistent responses to stimuli Orientation Level: (unable to assess) Following Commands: (less then 10%) Safety Judgment: Decreased awareness of need for assistance, Decreased awareness of need for safety Cognition Comments: Difficult to fully assess due to patients level of aphasia Extremity Assessments: See PT Evaluation flowsheet for Extremity Measurement updates. Balance: Sitting Balance Static Sitting-Level of Assistance: (contact guard/min) Dynamic Sitting-Level of Assistance: Moderate assistance Skilled Rationale: Positioning, Sequencing, Hand placement, Verbal cues, Tactile cues, Full extension to upright positioning/posture, Finding/maintaining midline positioning Sitting Balance Skilled Intervention/Details: Pt completed edge of bed sitting with generalized unsteadiness in all planes. Pt with retro leaning with improved posture with bilateral UEs on knees to promote flexion. Pt required cues for full trunk extension. Pt completed weight shifting to further challenge balance. Pt tolerated edge of bed sitting x 15-16 minutes Standing Balance Static Standing-Level of Assistance: Maximum assistance, 2-person assist Standing-Balance Support: Gait belt Skilled Rationale: Positioning, Sequencing, Verbal cues Standing Balance Skilled Intervention/Details: Pt completed static standing x 3 with max assist of 2, unable to achieve full stand. Pt required cues for full trunk and LE extension. Pt tolerated standing up to 30-45 seconds before requiring a sitting rest break Mobility Assessment/Intervention: Supine to Sit Mobility [place] Level: Supine->Sit: maximum assist (25% patient effort) Physical Assist: Supine->Sit: 2 person assist Bed Features/Set-up: Supine->Sit: Head of bed elevated, Use of bed rail Skilled Rationale: Positioning, Sequencing, Hand placement, Verbal cues Skilled Intervention/Details: Supine->Sit: Pt with minimal to no intiation, cues for log rollingdue to reporting patient with back pain Transfer Assessment/Intervention: Sit to Stand Transfer [place] Level: Sit->Stand: maximum assist (25% patient effort) Physical Assist: Sit->Stand: 2 person assist Skilled Rationale: Positioning, Sequencing, Hand placement, Verbal cues Skilled Intervention/Details: Sit->Stand: Pt completed sit to stand x 3 with max assist of 2 andarm and arm assist. Pt required blocking of bilateral feet and knees Gait/Functional Mobility Assessment/Intervention: Stairs Assessment/Intervention: Outcome Score(s): CURRENT [facility] Basic Mobility Inpatient Short Form Turning over in bed: 2 - A Lot of Assistance Sitting/standing from chair: 1 - Total Assistance Moving from lying on back to sittin - Total Assistance Moving to and from bed to chair: 1 - Total Assistance Walk in hospital room: 1 - Total Assistance Climbing 3-5 steps with a railin - Total Assistance CURRENT [facility] Mobility Raw Score: 7 CURRENT [facility] Mobility Functional Limitation/Modifier: 92.36% Currently Impaired in Basic Mobility- CM Interventions: Intervention 1 Intervention Name: LE therapeutic exericses Sets/Reps/Duration: Pt educated in bilateral LE therapeutic exericses in sitting in all planes. pt with receptive aphasia and decreased understanding of ther ex, despite cues both verbal, tactile andvisual. Pt with LE movement noted, however not to command Assessment & Plan: Pt making slow/minimal progress toward therapy goals this date, however able to initiate standing Patient Instruction/Education this session: bed mobility, transfers, there ex, balance Plan for next session: Continue to progress functional mobility as patient tolerates Acute PT Goals Plan of Care by Kavita Contreras PT at 07/14/2021 1:11 PM Version 1 of 1 Problem: PT - Balance/Coordination/Neuro Re-Education Goal: Sitting Dynamic/Static Balance Description: Pt will perform seated balance tasks for 20 minutes with contact guard assistance UE support level to improve safety with seated tasks. Outcome: Progressing Toward Goal Problem: PT - Transfers Goal: Supine <-> Sit Description: Pt will perform bed mobility with flat bed & no rail with moderate assistance in order to improve functional mobility and safety. Outcome: Progressing Toward Goal Goal: Sit <-> Stand Description: Pt will perform sit to/from stand transfers with moderate assistance and of 2 people with least restrictive device in order to improve functional mobility and safety. Outcome: Progressing Toward Goal PT treatment consisted of Therapeutic Activity, Therapeutic Procedure and Neuro Muscle Re-Educationto work and progress towards above goal(s). Treating Therapist: Kavita Contreras PT Additional Details: Co-evaluation/co-treatment performed?: Yes, simultaneous billable treatment This co-treatment session performed between PT and OT was beneficial, necessary and provided distinct services in progressing this person's individual plan of care. Medical complexity with functionaldeficits that necessitate two skilled therapy disciplines working concurrently to optimize patient's progress towards each discipline's goals. This co-treatment was medically necessary due to patient's: Coordination issues and Postural control. Patient benefits from simultaneous treatment from another therapy discipline to maximize progress towards All Physical Therapy goals. I was assisted by GIANNA Booker for today's session. and I used facemask, protective eye shield, and gloves in today's patient interaction. Patient location at end of session: bed with head of bed elevated Alarms on at end of session: bed alarm Needs in reach. Time In: 1049 Time Out: 1115 Total Visit Time: 26 minutes Total Treatment Time (skilled, billable minutes): 26 minutes Upon discontinuation of Acute Care Physical Therapy Services or patient discharge from the hospitalthis note represents the current Physical Therapy Discharge Summary. * Arabella Palacios OT - 07/14/2021 11:06 AM EDT Acute Occupational Therapy Evaluation Prior to Admission AM-PAC Score: Current AM-PAC score(s): CURRENT AM-PAC Activity Raw Score: 10 Based on the above AM-PAC score(s) and OT clinical judgment, discharge destination recommendation is: Senior Care Facility Discharge Barriers: Patient needs assistance with ADLs, Patient needs assistance with functional mobility, Patient needs assistance with IADLs (see note below) Mobility equipment available at home: quad cane, power wheelchair, 2 wheeled walker, 4 wheeled walker ADL equipment available at home: shower chair (rolling shower chair) Equipment recommendations for discharge: Current therapy frequency recommendation(s) in acute: 5 times a week Precautions and Weightbearing Status: OT Existing Precautions/Restrictions: fall Patient Safety Communication Prior to Visit: Nursing Subjective: Agreeable to therapy. present Pain: General Pain Documentation (Adult, OB, Peds) Presence of Pain: non-verbal indicator of pain/discomfort not present Home Setting Residence: House Lives With: spouse First floor setup: bedroom (roll in shower) Number of stairs to enter home: ramp Number of stairs in home: 0 Mobility Equipment Available: quad cane, power wheelchair, 2 wheeled walker, 4 wheeled walker ADL Equipment Available: shower chair (rolling shower chair) Home Environment Details: Pt unable to provide prior level due to aphasia but son is present duringeval and provides above information Previous Level of Function Prior level ADL Overview: Needs assist Bed Mobility/Transfers: independent Ambulation Skills: needs device Assistive Device: (bilateral quad canes) Level of Ambulation: household Prior Level of Function Details: Per , pt needs assist for LBD, however can shower himself IADL History IADL Comments: 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 Objective/Observation: Vitals/Vitals Responses to Treatment: VSS Vision Screen Currently wearing corrective lenses: Reading only Clinical Observations: Diffuclt to assess due to cognition Speech Speech: word-finding difficulties (Repetitive on yes) Hearing Hearing: no gross deficits noted Cognition Overall Cognitive Status: Impaired Arousal/Alertness: Localized responses Orientation Level: Disoriented X4 Following Commands: (less than 10% of commands) Safety Judgment: Decreased awareness of need for assistance, Decreased awareness of need for safety Awareness of Errors: Decreased awareness of errors, Assistance required to correct errors made Deficits: Decreased awareness of deficits ADLs: ADL Assessment: Unable to assess ADLs ADL Anticipated Performance (ADLs not directly observed this session): Eating, Grooming, Bathing, UE Dressing, LE Dressing, Toileting Eating Assistance: Maximal Grooming Assistance: Maximal Bathing Assistance: Maximal UE Dressing Assistance: Maximal LE Dressing Assistance: Total Toilet Assistance: Total Extremity Assessments: RUE Assessment RUE Assessment: (Grossly WFL, difficult to formally assess) LUE Assessment LUE Assessment: (Grossly WFL, difficult to fully assess) Balance: Sitting Balance Static Sitting-Level of Assistance: Minimum assistance Dynamic Sitting-Level of Assistance: Moderate assistance Skilled Rationale: Verbal cues, Hand placement, Positioning Sitting Balance Skilled Intervention/Details: max cues for neck extension at EOB Neuro: Sensation Overall Sensation: (Unable to assess due to cognition) Fine Motor Coordination Additional Documentation: (Diffuclt to assess due to cognition) Mobility Assessment: Supine to Sit Mobility [place] Level: Supine->Sit: maximum assist (25% patient effort) Physical Assist: Supine->Sit: 2 person assist Bed Features/Set-up: Supine->Sit: Head of bed elevated Skilled Rationale: Verbal cues, Hand placement, Sequencing, Positioning Skilled Intervention/Details: Supine->Sit: Cues for log roll technique Transfer Assessment: Sit to Stand Transfer [place] Level: Sit->Stand: maximum assist (25% patient effort) Physical Assist: Sit->Stand: 2 person assist Assistive Device: Sit->Stand: (arm in arm assist X 2 trials, sherly steady third stand) Skilled Rationale: Positioning, Full extension to upright positioning/posture, Finding/maintaining midline positioning Skilled Intervention/Details: Sit->Stand: max cues for upright postitioning, but minimal success. Outcome Score(s): Fugl-Ca UE Motor Score: (Unable to score due to cognition) CURRENT [facility] Daily Activity Inpatient Short Form Putting on/Taking Off Lower Body Clothin - Total Assistance Bathin - A Lot of Assistance Toiletin - Total Assistance Putting on/Taking Off Upper Body Clothin - A Lot of Assistance Groomin - A Lot of Assistance Eatin - A Lot of Assistance CURRENT -[facility] Activity Raw Score: 10 CURRENT -[facility] Activity Functional Limitation/Modifier: 74.70% Currently Impaired in Daily Activity- CL Assessment & Plan: Patient was admitted for Level 1 stroke possible LVO- acute L MCA and seen for therapy evaluation related to ADL performance and cognition for ADLs. Exam findings include impairments in: aerobic capacity, balance, transfers, strength, cognitive impairments. These impairments contribute to occupational performance limitations including bathing, dressing, grooming, toileting, functional mobility, ADL transfers. Patient will benefit from skilled occupational therapy to address these impairments, occupational performance limitations, and participation restrictions. Patient's rehab potential is: good, to achieve stated therapy goals. Planned Therapy Interventions (OT Eval): ADL retraining, balance training, bed mobility training, fine motor coordination training, transfer training, strengthening, cognitive training Patient Instruction/Education this session: Patient Instruction: OT role, plan of care Plan for next session: Address command following Acute OT Goals Plan of Care by Arabella Palacios OT at 07/14/2021 12:38 PM Version 1 of 1 Problem: OT - ADLs Goal: Grooming Description: Pt will complete grooming Edge of bed with standby assistance for improved ability to safely complete ADLs. Outcome: Ongoing Goal: Bathing Description: Pt will perform full body bathing routine with moderate assistance while seated for improved ability to complete self-care activities. Outcome: Ongoing Problem: OT - Visual Scanning Goal: Visual Scanning ADL Description: Pt will employ use of visual compensatory strategies with less than 10% cues to increase participation and safety in ADLs. Outcome: Ongoing Problem: OT - Cognition Goal: Cognition - Command following Description: Pt will follow 10 % of single commands during ADL task for improved safety and successat discharge destination. Outcome: Ongoing Problem: OT - Transfers Goal: Transfers Toilet/Bedside Commode Description: Pt will transfer to/from toilet/BSC with moderate assistance and of 2 people for improved ability to safely complete ADLs. Outcome: Ongoing Evaluating Therapist: Arabella Palacios OT Additional Details: Co-evaluation/co-treatment performed?: Yes, simultaneous billable treatment This co-evaluation session performed between OT and PT was beneficial, necessary and provided distinct services in establishing this person's individual plan of care. Medical complexity with functional deficits necessitated two skilled therapy disciplines working concurrently to determine each discipline's goals. This co-treatment was medically necessary due to patient's: Postural control I used facemask, protective eye shield, and gloves in today's patient interaction. OT Evaluation Complexity Occupational Profile and Client History: Moderate - expanded history Assessment of Occupational Performance: Moderate (3-5 performance deficits) Clinical Decision/Performance Deficits: Moderate (detailed assessments w/several treatment options) Time In: 1049 Time Out: 1106 Total Visit Time: 17 minutes Total Treatment Time (skilled, billable minutes): 17 minutes Patient location at end of session: edge of bed Alarms on at end of session: PT and PT student present Needs in reach. Upon discontinuation of Acute Care Occupational Therapy Services or patient discharge from the hospital this note represents the current Occupational Therapy Discharge Summary. * Kavita Contreras, PT - 07/13/2021 12:56 PM EDT Acute Physical Therapy Evaluation Prior to Admission [facility] score(s): PRIOR LEVEL AM-PAC Mobility Raw Score: 21 Current AM-PAC score(s): CURRENT AM-PAC Mobility Raw Score: 8 Based on the above AM-PAC score(s) and PT clinical judgment, patient is a good candidate for discharge to [facility] Discharge Barriers: Patient needs assistance with functional mobility Mobility equipment available at home: quad cane, power wheelchair, 2 wheeled walker, 4 wheeled walker ADL equipment available at home: shower chair (rolling shower chair) Equipment needed for discharge: to be determined Current therapy frequency recommendation in acute: Precautions and Weightbearing Status: Existing Precautions/Restrictions: fall Patient Safety Communication Prior to Visit: Nursing Respiratory Status O2 Device: nasal cannula Flow (L/min): 2 Subjective: Pt aphasic but alert with eyes open and appears agreeable to participate Pain: General Pain Documentation (Adult, OB, Peds) Presence of Pain: non-verbal indicator of pain/discomfort not present Home Setting Residence: House Lives With: spouse First floor setup: bedroom (roll in shower) Number of stairs to enter home: ramp Number of stairs in home: 0 Mobility Equipment Available: quad cane, power wheelchair, 2 wheeled walker, 4 wheeled walker ADL Equipment Available: shower chair (rolling shower chair) Home Environment Details: Pt unable to provide prior level due to aphasia but son is present duringeval and provides above information Previous Level of Function Prior level ADL Overview: Needs assist Bed Mobility/Transfers: independent Ambulation Skills: needs device Assistive Device: (bilateral quad canes) Level of Ambulation: household Prior Level of Function Details: Pt unable to provide prior level but son reports patient uses power wheelchair in home for mobility but able to complete bed mobility and transfers to chair without assist. pt assist with ADLs, pt has a anil in shower with shower chair. Pt uses bilateral quadcanes for mobility in/out of house to car and patient was driving. 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 Objective/Observation: Vitals/Vitals Responses to Treatment: WFL Cognition Overall Cognitive Status: Impaired (difficult to complete assessment due to aphasia) Following Commands: (follows less then 25% of commands) Safety Judgment: Decreased awareness of need for assistance, Decreased awareness of need for safety Cognition Comments: Pt with receptive and expressive aphasia, follows less then 25% of commands, improved command following with visual demo Vision Screen Currently wearing corrective lenses: Reading only Speech Speech: word-finding difficulties (nonsensible speech) Hearing Hearing: no gross deficits noted Extremity Assessments: RLE Assessment Right LE Assessment Details: Pt unable to follow commands for full assessment, however movement noted of bilateral LEs LLE Assessment Left LE Assessment Details: Pt unable to follow commands for full assessment, however movement noted of bilateral LEs Sensation Sensation Comments: difficult to assess due to patients aphasia, however all extremities withdrawalto noxious stimulus Skin Integrity Skin Integrity Description: WFL Edema Edema: present Location: bilateral LEs Mobility Assessment: Supine to Sit Mobility [place] Level: Supine->Sit: maximum assist (25% patient effort) Bed Features/Set-up: Supine->Sit: Head of bed elevated, Use of bed rail Skilled Rationale: Positioning, Sequencing, Hand placement, Verbal cues Sit to Supine Mobility [place] Level: Sit->Supine: maximum assist (25% patient effort) Bed Features/Set-up: Sit->Supine: Flat, Use of bed rail Balance: Sitting Balance Static Sitting-Level of Assistance: Minimum assistance Dynamic Sitting-Level of Assistance: (mod/max) Skilled Rationale: Positioning, Sequencing, Hand placement, Verbal cues, Full extension to upright positioning/posture, Finding/maintaining midline positioning Sitting Balance Skilled Intervention/Details: Pt completed edge of bed sitting with min assist for static sitting progressing to mod/max assist as patient fatigued Standing Balance Standing Balance Skilled Intervention/Details: unable to achieve standing posture Transfer Assessment: Sit to Stand Transfer Skilled Intervention/Details: Sit->Stand: Attempted sit to stand x 2, pt appears to attempt to initate stand but despite max assist of 1 unable to complete or clear buttock from sitting surface Gait/Functional Mobility: Stairs: Outcome Score(s): CURRENT AM-PAC Basic Mobility Inpatient Short Form Turning over in bed: 2 - A Lot of Assistance Sitting/standing from chair: 1 - Total Assistance Moving from lying on back to sittin - A Lot of Assistance Moving to and from bed to chair: 1 - Total Assistance Walk in hospital room: 1 - Total Assistance Climbing 3-5 steps with a railin - Total Assistance CURRENT -[facility] Mobility Raw Score: 8 CURRENT [facility] Mobility Functional Limitation/Modifier: 86.62% Currently Impaired in Basic Mobility- CM Interventions: Assessment & Plan: Patient was admitted for Level 1 stroke possible LVO and seen for therapy evaluation related to deficits in functional mobility. Exam findings include impairments in: Strength, Balance, Coordination, Posture, Transfers, Gait/Locomotion, Motor control, Neuromotor development and sensory integration. These impairments contributeto functional limitations including Decreased ambulation distance/endurance, Difficulty stair climbing/descent, Increased fall risk, Limited standing tolerance, Limited sitting tolerance, Difficulty with bed mobility, Difficulty with transfers, Decreased functional mobility. Current clinical presentation is Evolving - changing/inconsistent clinical characteristics (Moderate). Patient history factors impacting Plan Of Care include . Patient will benefit from skilled physical therapy to address these impairments, functional limitations, and participation restrictions andhas good rehab potential to achieve therapy goals. Planned Therapy Interventions: balance training, bed mobility training, endurance, functional activity tolerance, gait training, neuromuscular re- education, strengthening, transfer training Plan for next session: Continue to progress mobility, attempt out of bed to chair with 2 person assist Acute PT Goals Plan of Care by Kavita Contreras PT at 07/13/2021 12:56 PM Version 1 of 1 Problem: PT - Balance/Coordination/Neuro Re-Education Goal: Sitting Dynamic/Static Balance Description: Pt will perform seated balance tasks for 20 minutes with contact guard assistance UE support level to improve safety with seated tasks. Outcome: Ongoing Problem: PT - Transfers Goal: Supine <-> Sit Description: Pt will perform bed mobility with flat bed & no rail with moderate assistance in order to improve functional mobility and safety. Outcome: Ongoing Goal: Sit <-> Stand Description: Pt will perform sit to/from stand transfers with moderate assistance and of 2 people with least restrictive device in order to improve functional mobility and safety. Outcome: Ongoing Goal: Stand-Pivot Description: Pt will perform stand/pivot transfer to/from bed/chair/commode with moderate assistance and of 2 people with least restrictive device in order to improve functional mobility and safety. Outcome: Ongoing Evaluating Therapist: Kavita Contreras PT Additional Details: Co-evaluation/co-treatment performed?: No simultaneous treatment performed I used facemask, protective eye shield, and gloves in today's patient interaction. Evaluation Complexity Components History: Moderate (1-2 personal factors and/or comorbidities) Body Systems Review: Moderate (Addressing a total of 3 or more elements) Clinical Presentation: Evolving - changing/inconsistent clinical characteristics (Moderate) Clinical Decision Making: Moderate Time In: 0756 Time Out: 0817 Total Visit Time: 21 minutes Total Treatment Time (skilled, billable minutes): 21 minutes Patient location at end of session: bed with head of bed elevated Alarms on at end of session: bed alarm Needs in reach. Upon discontinuation of Acute Care Physical Therapy Services or patient discharge from the hospitalthis note represents the current Physical Therapy Discharge Summary. * Aggie Wu, AGRICULTURAL REAL ESTATE AGENT - 07/12/2021 4:24 PM EDT Acute Care AGRICULTURAL REAL ESTATE AGENT Speech/Language/Cognitive Evaluation Best mode of Communication: no reliable mode of communication Discharge Recommendations: Based on the below outcome measures/assessment score(s) and AGRICULTURAL REAL ESTATE AGENT clinicaljudgment, discharge destination recommendation is: Deferred to PT/OT recomendations related to mobility Discharge Barriers: Inability to communicate basic wants/needs Supporting factors for discharge setting: Impaired speech and language skills limiting ability to communicate basic wants/needs Acute AGRICULTURAL REAL ESTATE AGENT Outcomes Tracking Communicate basic wants and needs?: no Demo insight/appreciation of deficits?: no Complete basic problem solving?: no Current therapy frequency recommendation in acute: Speech/Lang/Cog Therapy Frequency: 5 times a week Clinical Impression: Ignacio Aquino presents with non fluent asphasia, most consistent with Wernicke's aphasia. These deficits result in functional limitations in communicating wants and needs. Throughout evaluation, pt consistently counting and stating numbers, as well as intermittently speaking in [place] (per family at bedside, reports that he is not making sense in [place] either). Able to complete automatic speech task of counting, however unable to complete any other automatic speech task. Pt occasionally would respond hi and thank you appropriately in conversation. Able to intermittently follow commands, however requires max cues. Unable to answer yes/no questions consistently. Unable to repeat. Attempted reading task, however pt began counting during reading task. Family also report pt with decreased vision in one eye (unable to report which eye). Unable to assess cognition due to aphasia. No signs of dysarthria or apraxia. Pt would benefit from ongoing AGRICULTURAL REAL ESTATE AGENT services to address noted deficits and assist pt in communicating wants and needs Patient Instruction/Education this session: Role of AGRICULTURAL REAL ESTATE AGENT and POC, provided family education regarding aphasia Plan for next session: Continue POC, ongoing assessment, family education regarding aphasia Subjective: Pt laying in bed counting upon AGRICULTURAL REAL ESTATE AGENT entering room, and son at bedside. Pain: General Pain Documentation (Adult, OB, Peds) Presence of Pain: non-verbal indicator of pain/discomfort not present Patient History Comments: Ignacio Aquino is a 76 y.o. male who presents from OSH with R sided weaknessand aphasia, NIHSS of 18 on arrival to OSH. CT head w/o acute hemorrhage, TPA administered. [facility] further [facility]. NIHSS of [facility] on [facility] [facility] Head Preliminary Report 07/12/21: IMPRESSION: Preliminary report. A final report will be issued after dual-energy image post-processing is completed. 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 No obvious hemorrhagic Conversion. Prior Level of Function: IADL History IADLs: needs assist IADL Comments: Unable to assess due to aphasia Respiratory Status: Room Air EXPRESSIVE LANGUAGE: Impaired Task: Automatic Speech Impaired Phrase Completion Impaired Confrontation Naming Impaired Answering 'wh' Questions Impaired Repetition Impaired Verbalize Basic Wants and Needs Impaired Functional Participation in Conversation Impaired Expressive Language Characteristics: Fluent and Perseveration RECEPTIVE LANGUAGE: Impaired Task: Identify Functional Objects Impaired Follow 1-Step Commands Impaired Answers Basic Y/N Questions Impaired Conversational Comprehension Impaired READING: Unable to assess (attempted to assess, however pt unable to attend to task, family reportsbaseline vision deficits) WRITING: Unable to assess (family reports baseline vision deficits) SOCIAL INTERACTION/PRAGMATICS: Unable to assess (pt continuously counting throughout evaluation) COGNITION: Unable to assess (due to aphasia) CRANIAL NERVE EXAMINATION: (unable to consistently follow commands) Cranial Nerve Exam CN V (Trigeminal) not tested CN VII (Facial) not tested CN IX (glossopharyngeal) not tested CN X (Vagus) not tested CN XI (Accessory) not tested CN XII (Hypoglossal) not tested MOTOR SPEECH TASKS: Intact, no dysarthria or apraxia present Task: Speech Intelligibility Intact VOCAL PARAMETERS: Intact Task: Vocal Quality WDL Subjective Voice Evaluation Grade of dysphonia (G): 0 Roughness (R): 0 Breathiness (B): 0 Asthenia (A): 0 Strain (S): 0 Acute AGRICULTURAL REAL ESTATE AGENT Goals Plan of Care by JUAN Real at 07/12/2021 4:24 PM Version 1 of 1 Problem: AGRICULTURAL REAL ESTATE AGENT - Language Goal: Establish Yes/No Description: Patient will respond to yes/no questions with a yes/no type response via any modality with maximum cues with 100% accuracy across 1 session to establish a reliable means of communication. Outcome: Ongoing Goal: Command Following Description: Patient will complete simple 1-step commands (minimum of x10) to 80% success with max cues as needed in order to improve direction following for functional gains in ability to participate more independently in care. Outcome: Ongoing Goal: Expressive Language Goal 1 Description: Patient will communicate basic wants/needs via any communication modality on at least 3 opportunities across 1 session to improve functional communication and ability to direct care. Outcome: Ongoing Goal: Automatic Speech Description: Patient will complete automatic speech tasks with 80% accuracy given moderate assist, across 1-2 session(s) to improve word-finding and functional communication. Outcome: Ongoing I used facemask, protective eye shield, and gloves in today's patient interaction. Speech Language Pathologist: JUAN Real Time In: 1624 Time Out: 1638 Total Visit Time: 14 minutes Total Treatment Time (skilled, billable minutes): 14 minutes Patient location at end of session: bed with head of bed elevated Alarms on at end of session: Family at bedside Needs in reach. Upon discontinuation of Acute Care Speech Therapy Services or patient discharge from the hospital this note represents the current Speech Therapy Discharge Summary * JUAN Real - 07/12/2021 4:24 PM EDT Acute Care Speech Language Pathology Note Received consult for swallow evaluation. However, patient passed [place] Swallow Screening by nursing per RN verbal report. Swallow eval by AGRICULTURAL REAL ESTATE AGENT will not be completed at this time unless this service notified of change in status or re- consult for swallow eval placed. AGRICULTURAL REAL ESTATE AGENT to proceed with speech/language/cognitive evaluation per order. Thank you. No charge Aggie Wu MA, CCC-AGRICULTURAL REAL ESTATE AGENT Email: [email or web address] documented in [facility]* Nursing Notes - Mayela Macdonald RN - 07/17/2021 12:21 PM EDT I spoke with Ignacio Aquino this morning as Emergency Services Professional for the Comprehensive St[facility] at [facility]. We reviewed the BE FAST sticker (Balance, Eyes, Facialdroop or uneven smile, Arm numbness or weakness - especially on one side, Speech that is slurred ordifficult to talk or understand, and Time to call 911). I then left my card assuring the patient and /or family that they should feel free to contact me with any questions. [facility]05-04-2022 Note* Plan of Care - Arabella Palacios OT - 07/16/2021 3:05 PM EDT Problem: OT - ADLs Goal: Grooming Description: Pt will complete grooming Edge of bed with standby assistance for improved ability to safely complete ADLs. Outcome: Ongoing Problem: OT - Cognition Goal: Cognition - Command following Description: Pt will follow 10 % of single commands during ADL task for improved safety and successat discharge destination. Outcome: Ongoing Problem: OT - Transfers Goal: Transfers Toilet/Bedside Commode Description: Pt will transfer to/from toilet/BSC with moderate assistance and of 2 people for improved ability to safely complete ADLs. Outcome: Ongoing [facility]05-04-2022 Note* Plan of Care - Kavita Contreras PT - 07/16/2021 11:12 AM EDT Problem: PT - Balance/Coordination/Neuro Re-Education Goal: Sitting Dynamic/Static Balance Description: Pt will perform seated balance tasks for 20 minutes with contact guard assistance UE support level to improve safety with seated tasks. Outcome: Progressing Toward Goal Problem: PT - Transfers Goal: Supine <-> Sit Description: Pt will perform bed mobility with flat bed & no rail with moderate assistance in order to improve functional mobility and safety. Outcome: Progressing Toward Goal Goal: Sit <-> Stand Description: Pt will perform sit to/from stand transfers with moderate assistance and of 2 people with least restrictive device in order to improve functional mobility and safety. Outcome: Progressing Toward Goal [facility]05-04-2022 Note* Plan of Care - Mirza Guerra MD - 07/16/2021 8:31 AM EDT Neurosurgery Update: Consulted for 76 y.o. 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 CTA at OSH with L M2 occlusion, patient given tPA, repeat CTA here with no LVO however did identify a 6 x7 x7 mm acomm aneurysm. 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 - Please have patient follow up with Dr. Serrato in 4 weeks to discuss aneurysm treatment - Neurosurgery will sign-off. Please call with questions. Mirza Guerra MD, Neurosurgery NS2 ([phone]) [facility] Work Phone: [phone]) 374-698405-03-2022 Hospital Discharge instructions* Discharge Instructions* Todd Multani APRN-HOME CARE ASSISTANT - 07/15/2021 3:44 PM EDT Please take these discharge instructions to your primary care doctor follow appointment to show them,keep them for your reference and refer to them often for follow up appointments.It is best to write your appointments on a personal calendar so you do not miss them,call if you need to change any appointments please. Education: What are the most common symptoms of stroke? The following are the most common symptoms of stroke. However, each individual may experience symptoms differently. If any of these symptoms are present, call 911 (or your local ambulance service) immediately. Treatment is most effective when started immediately. Symptoms may be sudden and include: -Weakness or numbness of the face, arm, or leg, especially on one side of the body -Confusion or difficulty speaking or understanding -Problems with vision such as dimness or loss of vision in one or both eyes -Dizziness or problems with balance or coordination -Problems with movement or walking -Severe headaches with no other known cause, especially if sudden onset All of the above warning signs may not occur with each stroke. Do not ignore any of the warning signs, even if they go away - take action immediately. The symptoms of stroke may resemble other medical conditions or problems. Always consult your physician for a diagnosis We have provided both written and verbal education to the patient and family regarding ischemic andhemorrhagic strokes. We have discussed the warning signs/symptoms as well as causes of stroke. We have discussed the importance of activating 911/EMS in the event of these symptoms. We have reviewed the patient's personal risk factors as well as education on reducing these risk factors. [facility] Personalized Stroke Treatment Plan My Stroke Type: [x] Ischemic Stroke (Blockage of blood flow to the brain) [] Hemorrhagic Stroke (Bleeding in the brain) [] TIA- Transient Ischemic Attack (mini-stroke) My Risk Factors Include: [x] High Blood Pressure [] Diabetes [x] High Cholesterol [] Heart Disease [x] Atrial Fibrillation (Irregular Heart Rate) [] Smoking [] Obesity [] Clotting Disorder [] Alcohol Abuse [] Drug Abuse [] Prior History [] Family History [] Obstructive Sleep Apnea My Follow-Up Treatment Goals: [x] Blood Pressure < 140/90 [] Stop Smoking Immediately [x] LDL < 70 [] HgA1C levels <7% [] Decrease BMI to <25 [x] Take all ordered medications [x] Avoid non-prescription or over the counter medication not cleared by your physician [x] Limit Alcohol use to no more than 1 drink per day for females and 2 drinks per day for males [] Do not drive until cleared [x] Follow up with PCP within a week of discharge to home [x] Follow-up with Neurovascular [x] Follow-up with Occupational,physical and speech therapy if ordered [x] Watch out for depression and seek treatment if needed CONTACTS FOR NEUROVASCULAR SERVICE: - You may call your neurovascular doctors office at [phone], if you have questions between 8:30 am and 4:30 pm. - For off hours or the weekend you may call the office or the hospital lock operator at and ask for the stroke resident business relationship manager to be paged. - If you have any questions or needs, please call Mayela Macdonald RN, stroke system programmer at [phone] Mon-Fri from 09-14 ? Any questions concerning your discharge instructions please call Case Management Office [phone] Patient Stroke Resources: [facility] Stroke Support The [facility] Stroke Support Group is for stroke survivors, friends, andfamily members. Meets every Wednesday from 12:00PM to 1:00PM at [facility]), [address] [place] [address] Jennifer Escobedo, at [phone]. If you are outside of the [facility], contact The [place] [employer] at www.strokeassociation.org or 6-623-5-stroke, or for supports groups in your area. Also refer to the Stroke Education booklet you received as part of your stroke education while you were a patient for additional resources Additional Contacts: Evening and Weekend Contacts If you have questions or concerns during evening, weekend, or holiday hours, please call: -[facility] lock operator at [phone]. -[facility] lock operator at [phone] Ask the lock operator to page the on-call doctor for Neurovascular service, they were responsible for your care while you were in the hospital. If you having an emergency, call 911. *In the event of an Emergency: If you have a physical or psychiatric emergency call 911 or go to your local emergency department. You should also call your outpatient provider's emergency number. Other reference numbers: [facility] Intake Office at [phone]; [facility] at [phone]; or Suicide Prevention Hotline at 660-352-6748. *Helpful phone numbers: Free Crisis Hotline: 8-290-549-TALK ( ) Suicide Hotline: 928.835.6460 Seniors Suicide Hotline: 115.241.5854 [facility] Youth: 736.193.7486 Mental [facility]: [phone] (free counseling) [employer] Access Hotline: 227-955-ZMJZ (198-014-6413) 24-hour crisis text hotline: Text the word 4hope to 414-093 for crisis support. Texting this number is free if you have Verizon, T-Mobile, AT[employer] or Sprint. [facility] Financial Assistance: If you want to learn more about these programs, please call .There are three programsto help you with the cost of your medical care: Medicaid, Hospital Care Assurance Program (HCAP) & danny If you are without Insurance and believe you may qualify for Medicaid/public assistance: The [facility] Department of Job and Family Services can now process tong (TANF), food (SNAP) and Medicaid Applications over the phone. Please call 4-165-515[facility] (2626) and apply over the phone or apply online at www.benefits.[place].gov. Wednesday-Wednesday 8am-12pm noon. Medication Assistance Programs [employer] members can buy 100+ common prescriptions for FREE, $3 or $6. Annual membership is $36 for individuals and $72 for families (up to 6 people, including pets). Sign up online or enroll at your nearest pharmacy! -[employer], web site can provide a significant number of coupons for medications at a much lower blank. * Medications* BART Joseph - 07/15/2021 3:40 PM EDT Know your medicines Make sure you know why you are taking each medicine. Make a master list of all your medicines. Write down the medicine names and doctors' names. Includedoses and side effects too. And write down why you take each medicine. Include all prescription [id number] medicines, vitamins, and supplements. Keep this list up to date. Take a copy to each doctor visit. Know when you will run out of each medicine. Ask your pharmacist if there are ways the drugstore can remind you to refill your medicines so you do not run out. Write refill reminders on your calendar. Don't wait until you have a few pills left. Ask your pharmacist to plan your refills so that you can forklift picker all your medicines at the same time. This can mean fewer trips to the drugstore. If we have prescribed you a new medication during your stay, please contact with your primary physician for refills * Discharge Instr - Activity* BART Joseph - 07/15/2021 3:40 PM EDT Activity -- Please follow these instructions: -Advance your activity as you can tolerate - You may walk all you want. You may go up and down the steps. Use the railing for support - It is normal for your energy level and sleep patterns to change after a stroke - Take rest periods during the day as needed - Complete recovery may take several weeks, months, up to a year. Patience is [place]. * Discharge Instr - Diet* BART Joseph - 07/15/2021 3:40 PM EDT Current Diet Orders Procedures DIET REGULAR Standing Status: Standing Number of Occurrences: 1 * Discharge Instr - Notify* BART Joseph - 07/15/2021 3:40 PM EDT Notify Your Doctor if you have any of the following: NEUROLOGICAL CHANGES-- Change in alertness Increased sleepiness Nausea and vomiting New onset of numbness or weakness in arms or legs New problems with your bowels or bladder New or worse problems with balance or walking Seizures, new or worsening UNRELIEVED HEADACHE PAIN-- New or increased pain unrelieved with pain medications Pain associated with nausea and vomiting Pain associated with other symptoms QUESTIONS OR PROBLEMS-- Any questions or problems that you are unsure about Deep Vein Thrombosis Symptoms Call your doctor or nurse right away if you have any signs of blood clots such as -Tender, swollen or reddened areas anywhere in your leg. -Numbness or tingling in your lower leg or calf, or at the top of your leg or groin -Skin on you leg looks pale or blue or feels cold to touch -Chest pain or have trouble breathing -Fever or chills [facility] [place]* Plan of Care - BHASKAR Choi - 07/15/2021 2:15 PM EDT Nutrition Plan of Care: 1. Continue current diet order. 2. Will provide strawberry/ chocolate Ensure Enlive (350 kcal, 20 g PRO each) once daily with Breakfast to optimize intakes and skin integrity. 3. Monitor for significant weight changes. 4. Monitor and encourage po intakes with goal of average po being 50-75%. 5. wind technician to follow. [facility] [place]05[facility] Nurse Surgical operation note* Yumiko Albarado RN - 07/15/2021 12:32 PM EDT 1050-Patient here from OR. Hooked up to monitor. VSS. Bedside report done. 1130-Called for sign out. 1215-Called report to floor. 1240-Patient to floor per bed with tele and pulse ox. [facility] [place]05-03-2022 Nurse Note* Yumiko Albarado RN - 07/15/2021 12:32 PM EDT 1050-Patient here from OR. Hooked up to monitor. VSS. Bedside report done. 1130-Called for sign out. 1215-Called report to floor. 1240-Patient to floor per bed with tele and pulse ox. [facility]* Plan of Care - Kavita Contreras PT - 07/14/2021 1:11 PM EDT Problem: PT - Balance/Coordination/Neuro Re-Education Goal: Sitting Dynamic/Static Balance Description: Pt will perform seated balance tasks for 20 minutes with contact guard assistance UE support level to improve safety with seated tasks. Outcome: Progressing Toward Goal Problem: PT - Transfers Goal: Supine <-> Sit Description: Pt will perform bed mobility with flat bed & no rail with moderate assistance in order to improve functional mobility and safety. Outcome: Progressing Toward Goal Goal: Sit <-> Stand Description: Pt will perform sit to/from stand transfers with moderate assistance and of 2 people with least restrictive device in order to improve functional mobility and safety. Outcome: Progressing Toward Goal [facility]-02[facility] Note* Plan of Care - Arabella Palacios OT - 07/14/2021 12:38 PM EDT Problem: OT - ADLs Goal: Grooming Description: Pt will complete grooming Edge of bed with standby assistance for improved ability to safely complete ADLs. Outcome: Ongoing Goal: Bathing Description: Pt will perform full body bathing routine with moderate assistance while seated for improved ability to complete self-care activities. Outcome: Ongoing Problem: OT - Visual Scanning Goal: Visual Scanning ADL Description: Pt will employ use of visual compensatory strategies with less than 10% cues to increase participation and safety in ADLs. Outcome: Ongoing Problem: OT - Cognition Goal: Cognition - Command following Description: Pt will follow 10 % of single commands during ADL task for improved safety and successat discharge destination. Outcome: Ongoing Problem: OT - Transfers Goal: Transfers Toilet/Bedside Commode Description: Pt will transfer to/from toilet/BSC with moderate assistance and of 2 people for improved ability to safely complete ADLs. Outcome: Ongoing [facility] [place] Note* Plan of Care - Shaun Dumas RN - 07/14/2021 5:22 AM EDT Problem: Patient Care Overview Goal: Plan of Care Review Outcome: Ongoing Flowsheets (Taken 07/14/2021521) Plan Of Care Reviewed With: significant other Goal: Individualization & Mutuality Outcome: Ongoing Problem: Stroke (Ischemic) (Adult) Goal: Signs and Symptoms of Listed Potential Problems Will be Absent, Minimized or Managed (Stroke) Description: Signs and symptoms of listed potential problems will be absent, minimized or managed by discharge/transition of care (reference Stroke (Ischemic) (Adult) CPG). Outcome: Ongoing [facility] [place]05-[facility]2022 NoteIMPRESSION: Interval progression in the loss of john-white matter differentiation involving the left cerebral hemisphere as well as progression/development of focal hypoattenuating areas involving the left basal ganglia/mcdermott radiata as well as the left occipital lobe. The findings are consistent with evolving infarcts. No evidence of hemorrhagic transformation. No significant midline shift. [id number] Note* Plan of Care - Kavita Contreras PT - 07/13/2021 12:56 PM EDT Problem: PT - Balance/Coordination/Neuro Re-Education Goal: Sitting Dynamic/Static Balance Description: Pt will perform seated balance tasks for 20 minutes with contact guard assistance UE support level to improve safety with seated tasks. Outcome: Ongoing Problem: PT - Transfers Goal: Supine <-> Sit Description: Pt will perform bed mobility with flat bed & no rail with moderate assistance in order to improve functional mobility and safety. Outcome: Ongoing Goal: Sit <-> Stand Description: Pt will perform sit to/from stand transfers with moderate assistance and of 2 people with least restrictive device in order to improve functional mobility and safety. Outcome: Ongoing Goal: Stand-Pivot Description: Pt will perform stand/pivot transfer to/from bed/chair/commode with moderate assistance and of 2 people with least restrictive device in order to improve functional mobility and safety. Outcome: Ongoing [facility] [place]* Plan of Care - JUAN Real - 07/12/2021 4:24 PM EDT Problem: AGRICULTURAL REAL ESTATE AGENT - Language Goal: Establish Yes/No Description: Patient will respond to yes/no questions with a yes/no type response via any modality with maximum cues with 100% accuracy across 1 session to establish a reliable means of communication. Outcome: Ongoing Goal: Command Following Description: Patient will complete simple 1-step commands (minimum of x10) to 80% success with max cues as needed in order to improve direction following for functional gains in ability to participate more independently in care. Outcome: Ongoing Goal: Expressive Language Goal 1 Description: Patient will communicate basic wants/needs via any communication modality on at least 3 opportunities across 1 session to improve functional communication and ability to direct care. Outcome: Ongoing Goal: Automatic Speech Description: Patient will complete automatic speech tasks with 80% accuracy given moderate assist, across 1-2 session(s) to improve word-finding and functional communication. Outcome: Ongoing [facility] [place] Emergency department Note* KEO Michael - 07/12/2021 2:43 PM EDT Reason for Consult: Social Work-Consult/Stroke Depression Screening/Admitted Prior to 24-hour review timeline BUZZ reviewed Consult Board. BUZZ consult placed for Stroke Depression Screening. The Patient has not been in the ED past the 24-hour timeline and has a room inpatient. ED SW entered a handoff for the inpatient SW to complete the screening when patient is post 24-hour. Nurse to call if Patient request assists. SW will be available throughout the remainder of the shift for Patient/Family Support. Yovany Zheng, Tobacco Educator, Emergency Dept., [facility] [phone] [facility] [place]04[facility] Emergency department Note* KEO iMchael - 07/12/2021 2:43 PM EDT Reason for Consult: Social Work-Consult/Stroke Depression Screening/Admitted Prior to 24-hour review timeline BUZZ reviewed Consult Board. SW consult placed for Stroke Depression Screening. The Patient has not been in the ED past the 24-hour timeline and has a room inpatient. ED SW entered a handoff for the inpatient SW to complete the screening when patient is post 24-hour. Nurse to call if Patient request assists. SW will be available throughout the remainder of the shift for Patient/Family Support. Yovany Zheng, Tobacco Educator, Emergency Dept., [facility] [phone] * Tessa Calvert RN - 07/12/2021 12:44 PM EDT Abd taunt, left bowel sounds faint. Dr Flores aware, not worried mejía is draining fine. * Tessa Calvert RN - 07/12/2021 12:02 PM EDT Flush complete. Patient started to speak [place]. Difficult to get him to follow commands. Spoke with , said his [place] was not making sense, he would not answer questions or follow commands. * Satinder Buckner MD - 07/12/2021 11:42 AM EDT ED Attending Past Medical History: Diagnosis Date Anemia Central cord syndrome (HCC) HTN (hypertension) Obesity Ignacio Aquino is a 76 y.o. male. 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 H/o chr wheelchair for BLE weakness r/t prior spine issue Smoking Status Never Smoker Alert; slurred/jumbled speech; R-sided weakness Impression: Acute sudden R-sided weakness and aphasia/dysphasia Plan: Emergent stroke care and post TPA care. On 07/12/2021 I saw and examined the patient. I discussed the history and examination with the resident and agree with the plan of care. I spent 35 minutes of critical care time excluding procedures and teaching on direct and indirect care of this critically ill patient. My interventions were done to reverse or prevent clinical deterioration. Additional time was spent with the following: The time I spend with the patient Reviewing prior records Documentation Ordering and review of test results Discussions with EMS, family, nursing, and consultants. Satinder Buckner MD 07/12/21 1244 * Mallory Bradley [facility] - 07/12/2021 11:39 AM EDT Department of Pharmacy Emergency Department Stroke Alert Response Note Patient Name: Ignacio Aquino Room/Bed: E034/E034 A Pharmacist responded to the stroke alert. Confirmed via EMS the patient was started on the following thrombolytic therapy prior to arrival: Alteplase Bolus: 9 mg given at 10:00. Alteplase Infusion: 81 mg/hr, (infusion rate 81 mL/hr) initiated at 10:01. Upon arrival thrombolytic therapy (tPA and saline chaser) Had not completely infused and therefore the transition to [facility] pump was facilitated. Instructed PRUDENCIO Zarate to infuse 0.9% sodium chloride at 81 mL/hr (rate of thrombolytic infusion) in the same line for one hour after completion of alteplase infusion. This IHIS order set [facility] IP ED: Confirmed Stroke/ICH - Secondary was placed by Dr. Mark Contreras for ongoing care. Verified orders for anti-hypertensive therapy with correct blood pressure goals (SBP <180 mmHg / DBP <105 mmHg) and post-tPA bleeding precautions have been placed. Please feel free to contact me with any further questions. Name: Mallory Bradley [facility] Phone: [phone] Date/Time: 07/12/2021 11:39 AM * Tessa Calvert RN - 07/12/2021 11:32 AM EDT Patient arrived via Air. LKW 800am. 900 am slid out of bed, did not hit head. TPA started at 1001 9mg blous- 81 mg. Flush 10:44. Patient is not on blood thinners (however was previously). WC bound d/t previous neck injury. BS 115 for medics. * Tessa Calvert RN - 07/12/2021 11:31 AM EDT Bed: E034 Expected date: 07/12/21 Expected time: 11:25 AM Means of arrival: Air Comments: * Michael Contreras MD - 07/12/2021 11:21 AM EDT History No chief complaint on file. HPI 76 year old male with history of HTN, prior C6 fracture c/b neurogenic bladder and bowel who was transferred as a Level 1 stroke alert. Last known well 8:45am today. Sudden onset of right-sided weakness and aphasia. Evaluated at an OSH where CT Head and CTA brain/neck showed findings suggestive of LVO. Given tPA and transferred here for further care. Patient with improved aphasia, but remains with incomprehensible speech, which limits HPI. Past Medical History: Diagnosis Date Anemia Central cord syndrome (HCC) HTN (hypertension) Obesity Past Surgical History: Procedure Laterality Date PACEMAKER PLACEMENT N/A 02/18/2015 Laterality: N/A; Surgeon: Colton Daly MD; Location: [facility] C6/C7 Family History Problem Relation Age of Onset Heart Disease - Other Sister has AICD Cancer Mother breast Social History Tobacco Use Smoking status: Never Smoker Substance Use Topics Alcohol use: No Alcohol/week: 0.0 standard drinks Drug use: No Review of Systems Unable to obtain secondary to patient's clinical status. Physical Exam Smoking Status Never Smoker Physical Exam Constitutional: Non-toxic appearance. Not in acute distress. HEENT:Normocephalic and atraumatic. PERRLA. EOMI. B/L external ears unremarkable. Oropharynx clear with MMM. Neck: Normal range of motion. Neck supple. No JVD. Cardiovascular: Normal rate, regular rhythm, normal heart sounds and intact distal pulses. No Murmurs/Rubs/Gallops. Pulmonary/Chest: Bilaterally Clear to Auscultation. Normal Respiratory Effort. No stridor. No respiratory distress. No wheezes. No rales. Abdominal: Distended abdomen with decreased breath sounds. Non-peritonitic. Does not appear tender on palpation. Musculoskeletal: Normal range of motion. No lower extremity edema. No Cyanosis. Radial and DP pulses Normal and symmetric. Neurological: Alert and oriented to person, place, and situation. CNII-XII grossly intact. Moving all 4 extremities equally. Skin: Skin is warm and dry. Capillary refill < 2 seconds. No rash noted. Nursing note and vitals reviewed. ED Course Procedures MDM Assessment: Ignacio Aquino is a 76 y.o. male who presents as a Level 1 stroke alert with the followingneurological deficits: Aphasia, right-sided weakness. S/p tPA at OSH. Improved aphasia and RUE movement. The patient was met in the CT scanner by myself and the neurology resident. The patient was found to be hemodynamically stable and protecting airway. DDx: cerebrovascular accident, transient ischemic attack, complex migraine, seizure, metabolic abnormalities, intracranial mass Plan: - Stroke Alert - Labs: CBC, chemistries, coags, LFTs, POC glucose - Imaging: CT Head w/o contrast, CTA, CT Perfusion - BP control - Neuro checks - Neurovascular consult ED Course and Medical Decision-Making: The patient has persistent symptoms. The patient was given tPA prior to arrival, so will require admission at PCU level care to neurovascular for further evaluation. Michael Contreras MD Resident 07/12/21 1537 [facility]* Certification - Jaxon Dahl MD - 07/12/2021 1:05 PM EDT I certify that this patient requires inpatient services at this time. I anticipate the expected length of stay will include at least two midnights. Inpatient services are due to the following medicalconcerns: stroke. Plans for post hospitalization care will be discharge to [facility]. [facility] [place]04[facility] Emergency department Note* Tessa Calvert RN - 07/12/2021 12:44 PM EDT Abd taunt, left bowel sounds faint. Dr Flores aware, not worried mejía is draining fine. [facility] [place]04-30-2022 NoteAcute Coronary Syndrome (ACS): Initial Evaluation and Management: [email or web address] [facility] [place]04-30-2022 Emergency department Note* Tessa Calvert RN - 07/12/2021 12:02 PM EDT Flush complete. Patient started to speak [place]. Difficult to get him to follow commands. Spoke with , said his [place] was not making sense, he would not answer questions or follow commands. [facility] [place]04-30-2022 Physician Emergency department Note* Satinder Buckner MD - 07/12/2021 11:42 AM EDT ED Attending Past Medical History: Diagnosis Date Anemia Central cord syndrome (HCC) HTN (hypertension) Obesity Ignacio Aquino is a 76 y.o. male. 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 H[facility]o [facility] for BLE weakness r/t prior spine issue Smoking Status Never Smoker Alert; slurred/jumbled speech; R-sided weakness Impression: Acute sudden R-sided weakness and aphasia/dysphasia Plan: Emergent stroke care and post TPA care. On 07/12/2021 I saw and examined the patient. I discussed the history and examination with the resident and agree with the plan of care. I spent 35 minutes of critical care time excluding procedures and teaching on direct and indirect care of this critically ill patient. My interventions were done to reverse or prevent clinical deterioration. Additional time was spent with the following: The time I spend with the patient Reviewing prior records Documentation Ordering and review of test results Discussions with EMS, family, nursing, and consultants. Satinder Buckner MD 07/12/21 1245 [facility] Work Phone: [phone] 258-834904-30-2022 Emergency department Note* Mallory Bradley [facility] - 07/12/2021 11:39 AM EDT Department of Pharmacy Emergency Department Stroke Alert Response Note Patient Name: Ignacio Aquino Room/Bed: E034/E034 A Pharmacist responded to the stroke alert. Confirmed via EMS the patient was started on the following thrombolytic therapy prior to arrival: Alteplase Bolus: 9 mg given at 10:00. Alteplase Infusion: 81 mg/hr, (infusion rate 81 mL/hr) initiated at 10:01. Upon arrival thrombolytic therapy (tPA and saline chaser) Had not completely infused and therefore the transition to [facility] pump was facilitated. Instructed PRUDENCIO Zarate to infuse 0.9% sodium chloride at 81 mL/hr (rate of thrombolytic infusion) in the same line for one hour after completion of alteplase infusion. This IHIS order set [facility] ED: Confirmed Stroke/ICH - Secondary was placed by Dr. Mark Contreras for ongoing care. Verified orders for anti-hypertensive therapy with correct blood pressure goals (SBP <180 mmHg / DBP <105 mmHg) and post-tPA bleeding precautions have been placed. Please feel free to contact me with any further questions. Name: Mallory Bradley [facility] Phone: [phone] Date/Time: 07/12/2021 11:39 AM [facility]04-30-20[facility] Emergency department Note* Tessa Calvert RN - 07/12/2021 11:32 AM EDT Patient arrived via Air. LKW 800am. 900 am slid out of bed, did not hit head. TPA started at 1001 9mg blous- 81 mg. Flush 10:44. Patient is not on blood thinners (however was previously). WC bound d/t previous neck injury. BS 115 for medics. [facility]04-30-20[facility] Emergency department Note* Tessa Calvert RN - 07/12/2021 11:31 AM EDT Bed: E034 Expected date: 07/12/21 Expected time: 11:25 AM Means of arrival: Air Comments: [facility] [place]30[facility] Physician Emergency department Note* Michael Contreras MD - 07/12/2021 11:21 AM EDT History No chief complaint on file. HPI 76 year old male with history of HTN, prior C6 fracture c/b neurogenic bladder and bowel who was transferred as a Level 1 stroke alert. Last known well 8:45am today. Sudden onset of right-sided weakness and aphasia. Evaluated at an OSH where CT Head and CTA brain/neck showed findings suggestive of LVO. Given tPA and transferred here for further care. Patient with improved aphasia, but remains with incomprehensible speech, which limits HPI. Past Medical History: Diagnosis Date Anemia Central cord syndrome (HCC) HTN (hypertension) Obesity Past Surgical History: Procedure Laterality Date PACEMAKER PLACEMENT N/A 02/18/2015 Laterality: N/A; Surgeon: Colton Daly MD; Location: [facility] C6/C7 Family History Problem Relation Age of Onset Heart Disease - Other Sister has AICD Cancer Mother breast Social History Tobacco Use Smoking status: Never Smoker Substance Use Topics Alcohol use: No Alcohol/week: 0.0 standard drinks Drug use: No Review of Systems Unable to obtain secondary to patient's clinical status. Physical Exam Smoking Status Never Smoker Physical Exam Constitutional: Non-toxic appearance. Not in acute distress. HEENT:Normocephalic and atraumatic. PERRLA. EOMI. B/L external ears unremarkable. Oropharynx clear with MMM. Neck: Normal range of motion. Neck supple. No JVD. Cardiovascular: Normal rate, regular rhythm, normal heart sounds and intact distal pulses. No Murmurs/Rubs/Gallops. Pulmonary/Chest: Bilaterally Clear to Auscultation. Normal Respiratory Effort. No stridor. No respiratory distress. No wheezes. No rales. Abdominal: Distended abdomen with decreased breath sounds. Non-peritonitic. Does not appear tender on palpation. Musculoskeletal: Normal range of motion. No lower extremity edema. No Cyanosis. Radial and DP pulses Normal and symmetric. Neurological: Alert and oriented to person, place, and situation. CNII-XII grossly intact. Moving all 4 extremities equally. Skin: Skin is warm and dry. Capillary refill < 2 seconds. No rash noted. Nursing note and vitals reviewed. ED Course Procedures MDM Assessment: Ignacio Aquino is a 76 y.o. male who presents as a Level 1 stroke alert with the followingneurological deficits: Aphasia, right-sided weakness. S/p tPA at OSH. Improved aphasia and RUE movement. The patient was met in the CT scanner by myself and the neurology resident. The patient was found to be hemodynamically stable and protecting airway. DDx: cerebrovascular accident, transient ischemic attack, complex migraine, seizure, metabolic abnormalities, intracranial mass Plan: - Stroke Alert - Labs: CBC, chemistries, coags, LFTs, POC glucose - Imaging: CT Head w/o contrast, CTA, CT Perfusion - BP control - Neuro checks - Neurovascular consult ED Course and Medical Decision-Making: The patient has persistent symptoms. The patient was given tPA prior to arrival, so will require admission at PCU level care to neurovascular for further evaluation. Michael Contreras MD Resident 07/12/21 1537 [facility] Work Phone: Evaluation + Plan note Future Appointments Appointment Date:04/16/2021 09:30:00 AM Scheduled Provider:MALLORY MCPHERSON DO Location:[facility] Appointment Type:PC OV Future Scheduled Tests Laboratory* Prostate Specific Antigen 04/19/20 [facility] Evaluation + Plan note Future Appointments Appointment Date:01/07/2022 02:45:00 PM Scheduled Provider:MALLORY MCPHERSON DO Location:[facility] Appointment Type:PC OV Future Scheduled Tests Laboratory* Prostate Specific Antigen 04/16/21 [facility] Evaluation + Plan note Future Appointments Appointment Date:01/06/2023 02:00:00 PM Scheduled Provider:MALLORY MCPHERSON DO Location:[facility] Appointment Type:PC OV Follow Up Future Scheduled Tests Laboratory* Prostate Specific Antigen 07/08/22 * Thyroid Stimulating Hormone 07/08/22 * Albumin/Creatinine Ratio, Random Urine 07/08/22 * Complete Metabolic Panel 07/08/22 [facility] Evaluation + Plan note Future Appointments Appointment Date:07/07/2023 01:00:00 PM Scheduled Provider:MALLORY MCPHERSON DO Location:[facility] Appointment Type:PC OV Follow Up [facility] Evaluation + Plan note Future Appointments Appointment Date:01/05/2024 01:30:00 PM Scheduled Provider:MALLORY MCPHERSON DO Location:[facility] Appointment Type:PC OV [facility] Evaluation + Plan note Future Appointments Appointment Date:07/05/2024 01:30:00 PM Scheduled Provider:MALLORY MCPHERSON DO Location:[facility] Appointment Type:PC OV Follow Up Future Scheduled Tests Laboratory* Prostate Specific Antigen 01/05/24 * Complete Blood Count 01/05/24 * Complete Metabolic Panel 01/05/24 [facility] Evaluation note* Diagnosis Onset Date Resolution Status Atrial arrhythmia acute Lightheaded acute History of permanent cardiac pacemaker placement chronic Sick sinus syndrome resolved Atrial fibrillation acute History of permanent cardiac pacemaker placement chronic Sick sinus syndrome resolved Atrial fibrillation acute History of permanent cardiac pacemaker placement chronic Sick sinus syndrome resolved [facility] Work Phone: Evaluation note* Diagnosis Onset Date Resolution Status Atrial fibrillation acute History of permanent cardiac pacemaker placement chronic Sick sinus syndrome resolved Atrial fibrillation acute History of permanent cardiac pacemaker placement chronic Sick sinus syndrome resolved [facility] Work Phone: Evaluation note* Diagnosis 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- Primary Stroke Unspecified cerebral artery occlusion with cerebral infarction [facility] Diagnosis Onset Date Resolution Status Atrial fibrillation acute History of permanent cardiac pacemaker placement chronic Sick sinus syndrome resolved Atrial fibrillation acute History of permanent cardiac pacemaker placement chronic Sick sinus syndrome resolved Anterior communicating artery aneurysm acute Atrial fibrillation acute Closed C6 fracture acute Debility acute Depression acute Dysarthria acute 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 acute Neurogenic bladder acute Neurogenic bowel acute Neuropathy acute Sick sinus syndrome acute Hypertension chronic [facility] Work Phone: Evaluation note* Diagnosis Onset Date Resolution Status Atrial fibrillation acute History of permanent cardiac pacemaker placement chronic Sick sinus syndrome resolved Atrial fibrillation acute History of permanent cardiac pacemaker placement chronic Sick sinus syndrome resolved Anterior communicating artery aneurysm acute Aphasia acute Atrial fibrillation acute [id number] acute Debility acute Depression acute Dysarthria acute Hypokalemia acute Left hemiparesis acute AAA (abdominal aortic aneurysm) without rupture chronic Anemia chronic Central cord syndrome chroni c Essential hypertension chron ic History of permanent cardiac pacemaker placement chronic Hypertension chronic 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 Neurogenic bladder chronic Neurogenic bowel chronic Neuropathy chronic 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.9) 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 Work Phone: Evaluation note* Diagnosis Altered mental status- Primary Cerebrovascular accident (CVA) due to embolism of middle cerebral artery, unspecified blood vessel laterality Atrial fibrillation, unspecified type H/O ischemic left MCA stroke Transient ischemic attack (TIA), and cerebral infarction without residual deficits Essential hypertension Unspecified essential hypertension Neuropathic pain Neuralgia, neuritis, and radiculitis, unspecified Spinal cord injury, cervical region C1-C4 level spinal cord injury without evidence of spinal bone injury, unspecified Anxiety and depression Dysthymic disorder Aphasia [facility] Diagnosis Onset Date Resolution Status Atrial fibrillation acute Sick sinus syndrome resolved Atrial fibrillation acute Sick sinus syndrome resolved Aphasia acute Atrial fibrillation acute [id number] acute Debility acute Depression acute Dysarthria acute 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 Neurogenic bowel chronic Hypokalemia resolved Aphasia acute Atrial fibrillation acute [id number] acute Debility acute 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 Neurogenic bowel chronic Hypokalemia resolved Aphasia acute Atrial fibrillation acute [id number] acute Chronic anticoagulation acut e Debility acute Depression acute Dysarthria acute Heme + stool acute [id number] acute Normochromic normocytic anemia acute Pressure ulcer acute 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 Neurogenic bladder chronic Neurogenic bowel chronic Pacemaker chronic Prostatic hypertrophy chroni c Catheter-associated urinary tract infection resolved Decubitus ulcer, stage I res olved Decubitus ulcer, stage II re solved Dehydration resolved Hypokalemia resolved Orthostatic hypotension reso lved TIA (transient ischemic attack) resolved [facility] Work Phone: Evaluation note* Diagnosis Onset Date Resolution Status Pacemaker chronic Sick sinus syndrome resolved Aphasia acute Atrial fibrillation acute [id number] acute Depression acute Dysarthria acute 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 Neurogenic bowel chronic Hypokalemia resolved Aphasia acute Atrial fibrillation acute [id number] acute 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 Neurogenic bowel chronic Hypokalemia resolved Aphasia acute Atrial fibrillation acute [id number] acute Chronic anticoagulation acut e Debility acute Depression acute Dysarthria acute Heme + stool acute [id number] acute Iron deficiency anemia acute Normochromic normocytic anemia acute Pressure ulcer acute 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 Neurogenic bladder chronic Neurogenic bowel chronic Pacemaker chronic Prostatic hypertrophy chroni c Catheter-associated urinary tract infection resolved Decubitus ulcer, stage I res olved Decubitus ulcer, stage II re solved Dehydration resolved Hypokalemia resolved Orthostatic hypotension reso lved TIA (transient ischemic attack) resolved Anterior communicating artery aneurysm acute Atrial fibrillation acute Benign prostate hyperplasia acute Change in mental status acut e Closed C6 fracture acute Debility acute Depression acute Hyperlipidemia acute Hypokalemia acute 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 acute Insomnia acute Iron deficiency anemia acute Muscle spasm acute Neurogenic bladder acute Neurogenic bowel acute Neuropathic pain acute Recurrent urinary tract infection acute Transient ischemic attack ac [place] Atrial fibrillation acute Bilateral lower extremity edema acute CVA (cerebral vascular accident) acute Sick sinus syndrome resolved [facility] Work Phone: Evaluation note* Diagnosis Onset Date Resolution Status Pacemaker chronic Sick sinus syndrome resolved Aphasia acute Atrial fibrillation acute [id number] acute Depression acute Dysarthria acute 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 Neurogenic bowel chronic Hypokalemia resolved Aphasia acute Atrial fibrillation acute [id number] acute 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 Neurogenic bowel chronic Hypokalemia resolved Aphasia acute Atrial fibrillation acute [id number] acute Chronic anticoagulation acut e Debility acute Depression acute Dysarthria acute Heme + stool acute [id number] acute Iron deficiency anemia acute Normochromic normocytic anemia acute Pressure ulcer acute 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 Neurogenic bladder chronic Neurogenic bowel chronic Pacemaker chronic Prostatic hypertrophy chroni c Catheter-associated urinary tract infection resolved Decubitus ulcer, stage I res olved Decubitus ulcer, stage II re solved Dehydration resolved Hypokalemia resolved Orthostatic hypotension reso lved TIA (transient ischemic attack) resolved Acute confusion acute Anterior communicating artery aneurysm acute Atrial fibrillation acute Bacteremia due to Gram-negative bacteria acute Benign prostate hyperplasia acute Change in mental status acut e Closed C6 fracture acute Debility acute Depression acute Hyperlipidemia acute Hypokalemia acute 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 Neurogenic bowel chronic Hypokalemia resolved Aphasia acute Atrial fibrillation acute [id number] acute Chronic anticoagulation acut e Debility acute Depression acute Dysarthria acute Heme + stool acute [id number] acute Iron deficiency anemia acute Normochromic normocytic anemia acute Pressure ulcer acute 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 Neurogenic bladder chronic Neurogenic bowel chronic Pacemaker chronic Prostatic hypertrophy chroni c Catheter-associated urinary tract infection resolved Decubitus ulcer, stage I res olved Decubitus ulcer, stage II re solved Dehydration resolved Hypokalemia resolved Orthostatic hypotension reso lved TIA (transient ischemic attack) resolved Anterior communicating artery aneurysm acute Atrial fibrillation acute Bacteremia due to Gram-negative bacteria acute Benign prostate hyperplasia acute Debility acute Depression acute Hyperlipidemia acute Hypokalemia acute 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 Work Phone: Evaluation note* Diagnosis Onset Date Resolution Status Atrial fibrillation acute CVA (cerebral vascular accident) acute Sick sinus syndrome resolved Pacemaker chronic Sick sinus syndrome resolved Nausea & vomiting acute Pancreatitis acute UTI (urinary tract infection) acute [facility] Work Phone: Evaluation note* Diagnosis Onset Date Resolution Status Pacemaker chronic Sick sinus syndrome resolved Nausea & vomiting resolved Pancreatitis resolved UTI (urinary tract infection) resolved [facility] Work Phone: Evaluation note* Diagnosis Onset Date Resolution Status Nausea & vomiting resolved Pancreatitis resolved UTI (urinary tract infection) resolved Atrial fibrillation acute Bilateral lower extremity edema acute CVA (cerebral vascular accident) acute Fatigue acute Sick sinus syndrome resolved [facility] Work Phone: Evaluation note* Diagnosis Onset Date Resolution Status Atrial fibrillation acute Bilateral lower extremity edema acute CVA (cerebral vascular accident) acute Sick sinus syndrome resolved 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 [place] [address] Referral ID Status Reason Start Date Expiration Date V isits Requested Visits Authorized [id number] New Request 07/15/2021 08/09/2022 1 1 * Radiology (Routine) - New Request Specialty Diagnoses / Procedures Referred By Lety herman Referred To Contact Procedures PACEMAKER/ICD INTERROGATION Julio Cesar Law APRN-HOME CARE ASSISTANT [address] [place] [address] Referral ID Status Reason Start Date Expiration Date V isits Requested Visits Authorized [id number] New Request 07/13/2021 08/07/2022 1 1 * Radiology (Routine) - Pending Review Specialty Diagnoses / Procedures Referred By Contac t Referred To Contact Procedures ECG Coreen Russ MD [address] [place] [address] Referral ID Status Reason Start Date Expiration Date V isits Requested Visits Authorized [id number] Pending Review 07/12/2021 08/06/2022 1 1 * (Routine) - Pending Review Specialty Diagnoses / Procedures Referred By Contac t Referred To Contact Procedures NO PHARMACOLOGICAL DVT PROPHYLAXIS Coreen Russ MD [address] [place] [address] Referral ID Status Reason Start Date Expiration Date V isits Requested Visits Authorized [id number] Pending Review 07/12/2021 08/06/2022 1 1 * (Routine) - Pending Review Specialty Diagnoses / Procedures Referred By Contac t Referred To Contact Procedures DVT/VTE RISK ASSESSMENT Coreen Russ MD [address] [place] [address] Referral ID Status Reason Start Date Expiration Date V isits Requested Visits Authorized [id number] Pending Review 07/12/2021 08/06/2022 1 1 * Radiology (Emergency) - Pending Review Specialty Diagnoses / Procedures Referred By Contac t Referred To Contact Procedures ECG El-Shammaa, Satinder N, MD [address] [place] [address] Referral ID Status Reason Start Date Expiration Date V isits Requested Visits Authorized [id number] Pending Review 07/12/2021 08/06/2022 1 1 [facility]No reason for referral [facility] Work [facility]: Reason for visit Narrative* Auth/Cert Specialty Diagnoses / Procedures Referred By Lety herman Referred To Contact Diagnoses Level 1 stroke possible LVO Referral ID Status Reason Start Date Expiration Date Visits Re quested Visits Authorized [id number] 1 1 [facility] Chief Complaint and Reason for Visit Chief Complaint Remote ALERT for AT/ AF burden ATRIAL ARRYTHMIA REMOTE CHECK SP remote ALERT for AT/AF burden SP Cyst of kidney, acquired AFIB Reason for Visit Atrial arrhythmia Lightheaded History of permanent cardiac pacemaker placement Sick sinus syndrome Atrial fibrillation History of permanent cardiac pacemaker placement Sick sinus syndrome Atrial fibrillation History of permanent cardiac pacemaker placement Sick sinus syndrome Chief Complaint REMOTE CHECK SP remote ALERT for AT/AF burden SP Cyst of kidney, acquired AFIB NEURO SX Reason for Visit Atrial fibrillation History of permanent cardiac pacemaker placement Sick sinus syndrome Atrial fibrillation History of permanent cardiac pacemaker placement Sick sinus syndrome Chief Complaint REMOTE CHECK SP remote ALERT for AT/AF burden SP Cyst of kidney, acquired AFIB NEURO SX LEFT MCA Reason for Visit Atrial fibrillation History of permanent cardiac pacemaker placement Sick sinus syndrome Atrial fibrillation History of permanent cardiac pacemaker placement Sick sinus syndrome Anterior communicating artery aneurysm Atrial fibrillation Closed C6 fracture Debility Depression Dysarthria 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 Neurogenic bladder Neurogenic bowel Neuropathy Sick sinus syndrome Hypertension Chief Complaint REMOTE CHECK SP remote ALERT for AT/AF burden SP Cyst of kidney, acquired AFIB NEURO SX LEFT MCA LEFT MCA Reason for Visit Atrial fibrillation History of permanent cardiac pacemaker placement Sick sinus syndrome Atrial fibrillation History of permanent cardiac pacemaker placement Sick sinus syndrome Anterior communicating artery aneurysm Aphasia Atrial fibrillation [id number] Debility Depression Dysarthria Hypokalemia Left hemiparesis AAA (abdominal aortic aneurysm) without rupture Anemia Central cord syndrome Essential hypertension History of permanent cardiac pacemaker placement Hypertension 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 Neurogenic bladder Neurogenic bowel Neuropathy 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.9) Paraplegia Sick sinus syndrome Anterior communicating artery aneurysm Aphasia Atrial fibrillation [id number] Debility Hypokalemia Left hemiparesis History of permanent cardiac pacemaker placement Hypertension 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 Neurogenic bladder Neurogenic bowel 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.9) Paraplegia Chief Complaint REMOTE CHECK SP remote ALERT for AT/AF burden SP Cyst of kidney, acquired AFIB NEURO SX LEFT MCA LEFT MCA REMOTE CHECK STROKE STROKE STROKE STROKE STROKE STROKE STROKE STROKE STROKE STROKE STROKE Reason for Visit Atrial fibrillation Sick sinus syndrome Atrial fibrillation Sick sinus syndrome Aphasia Atrial fibrillation [id number] Debility Depression Dysarthria 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 Neurogenic bowel Hypokalemia Aphasia Atrial fibrillation [id number] Debility 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 Neurogenic bowel Hypokalemia Aphasia Atrial fibrillation [id number] Chronic anticoagulation Debility Depression Dysarthria Heme + stool [id number] Normochromic normocytic anemia Pressure ulcer 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 Neurogenic bladder Neurogenic bowel Pacemaker Prostatic hypertrophy Catheter-associated urinary tract infection Decubitus ulcer, stage I Decubitus ulcer, stage II Dehydration Hypokalemia Orthostatic hypotension TIA (transient ischemic attack) Chief Complaint Cyst of kidney, acqu ired AFIB NEURO SX remote PPM f/u LEFT MCA LEFT MCA REMOTE CHECK STROKE STROKE STROKE STROKE STROKE STROKE STROKE STROKE STROKE STROKE STROKE STROKE CVA 10 m fu alt mental status Reason for Visit Pacemaker Sick sinus syndrome Aphasia Atrial fibrillation [id number] Depression Dysarthria 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 Neurogenic bowel Hypokalemia Aphasia Atrial fibrillation [id number] 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 Neurogenic bowel Hypokalemia Aphasia Atrial fibrillation [id number] Chronic anticoagulation Debility Depression Dysarthria Heme + stool [id number] Iron deficiency anemia Normochromic normocytic anemia Pressure ulcer 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 Neurogenic bladder Neurogenic bowel Pacemaker Prostatic hypertrophy Catheter-associated urinary tract infection Decubitus ulcer, stage I Decubitus ulcer, stage II Dehydration Hypokalemia Orthostatic hypotension TIA (transient ischemic attack) Anterior communicating artery aneurysm Atrial fibrillation Benign prostate hyperplasia Change in mental status Closed C6 fracture Debility Depression Hyperlipidemia Hypokalemia 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 Insomnia Iron deficiency anemia Muscle spasm Neurogenic bladder Neurogenic bowel Neuropathic pain Recurrent urinary tract infection Transient ischemic attack Atrial fibrillation Bilateral lower extremity edema CVA (cerebral vascular accident) Sick sinus syndrome Chief Complaint Cyst of kidney, acqu ired AFIB NEURO SX remote PPM f/u LEFT MCA LEFT MCA REMOTE CHECK STROKE STROKE STROKE STROKE STROKE STROKE STROKE STROKE STROKE STROKE STROKE STROKE CVA 10 m fu alt mental status SUSPECT SUBACUTE LEFT PARIETAL LOBE INFARCT Reason for Visit Pacemaker Sick sinus syndrome Aphasia Atrial fibrillation [id number] Depression Dysarthria 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 Neurogenic bowel Hypokalemia Aphasia Atrial fibrillation [id number] 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 Neurogenic bowel Hypokalemia Aphasia Atrial fibrillation [id number] Chronic anticoagulation Debility Depression Dysarthria Heme + stool [id number] Iron deficiency anemia Normochromic normocytic anemia Pressure ulcer 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 Neurogenic bladder Neurogenic bowel Pacemaker Prostatic hypertrophy Catheter-associated urinary tract infection Decubitus ulcer, stage I Decubitus ulcer, stage II Dehydration Hypokalemia Orthostatic hypotension TIA (transient ischemic attack) Acute confusion Anterior communicating artery aneurysm Atrial fibrillation Bacteremia due to Gram-negative bacteria Benign prostate hyperplasia Change in mental status Closed C6 fracture Debility Depression Hyperlipidemia Hypokalemia 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 Insomnia Iron deficiency anemia Muscle spasm Neurogenic bladder Neurogenic bowel Neuropathic pain Recurrent urinary tract infection Transient ischemic attack Urinary tract infection Atrial fibrillation Bilateral lower extremity edema CVA (cerebral vascular accident) Sick sinus syndrome Chief Complaint Cyst of kidney, acqu ired AFIB NEURO SX remote PPM f/u LEFT MCA LEFT MCA REMOTE CHECK STROKE STROKE STROKE STROKE STROKE STROKE STROKE STROKE STROKE STROKE STROKE STROKE CVA 10 m fu alt mental status SUSPECT SUBACUTE LEFT PARIETAL LOBE INFARCT TCU PATIENT Reason for Visit Pacemaker Sick sinus syndrome Aphasia Atrial fibrillation [id number] Depression Dysarthria 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 Neurogenic bowel Hypokalemia Aphasia Atrial fibrillation [id number] 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 Neurogenic bowel Hypokalemia Aphasia Atrial fibrillation [id number] Chronic anticoagulation Debility Depression Dysarthria Heme + stool [id number] Iron deficiency anemia Normochromic normocytic anemia Pressure ulcer 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 Neurogenic bladder Neurogenic bowel Pacemaker Prostatic hypertrophy Catheter-associated urinary tract infection Decubitus ulcer, stage I Decubitus ulcer, stage II Dehydration Hypokalemia Orthostatic hypotension TIA (transient ischemic attack) Anterior communicating artery aneurysm Atrial fibrillation Bacteremia due to Gram-negative bacteria Benign prostate hyperplasia Debility Depression Hyperlipidemia Hypokalemia 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 RX HERE Reason for Visit Atrial fibrillation CVA (cerebral vascular accident) Sick sinus syndrome Pacemaker Sick sinus syndrome Chief Complaint 6 M FU 3 mos remote PPM f/u STROKE, INCOMPLETE QUADRIPALEGIC. RX HERE ACUTE CYSTITIS, ACUTE PANCREATITIS weakness ACUTE CYSTITIS, ACUTE PANCREATITIS ACUTE CYSTITIS, ACUTE PANCREATITIS ACUTE CYSTITIS, ACUTE PANCREATITIS Reason for Visit Atrial fibrillation CVA (cerebral vascular accident) Sick sinus syndrome Pacemaker Sick sinus syndrome Nausea & vomiting Pancreatitis UTI (urinary tract infection) Chief Complaint 3 mos remote PPM f/u ACUTE CYSTITIS, ACUTE PANCREATITIS weakness ACUTE CYSTITIS, ACUTE PANCREATITIS ACUTE CYSTITIS, ACUTE PANCREATITIS ACUTE CYSTITIS, ACUTE PANCREATITIS STROKE, INCOMPLETE QUADRIPALEGIC. RX HERE STROKE, INCOMPLETE QUADRIPALEGIC. RX HERE HEAD INJURY Reason for Visit Pacemaker Sick sinus syndrome Nausea & vomiting Pancreatitis UTI (urinary tract infection) Chief Complaint ACUTE CYSTITIS, ACUT E PANCREATITIS weakness ACUTE CYSTITIS, ACUTE PANCREATITIS ACUTE CYSTITIS, ACUTE PANCREATITIS ACUTE CYSTITIS, ACUTE PANCREATITIS STROKE, INCOMPLETE QUADRIPALEGIC. RX HERE HEAD INJURY STROKE, INCOMPLETE QUADRIPALEGIC. RX HERE 1 y fu E-ORDER Reason for Visit Nausea & vomiting Pancreatitis UTI (urinary tract infection) Atrial fibrillation Bilateral lower extremity edema CVA (cerebral vascular accident) Fatigue Sick sinus syndrome Chief Complaint PSA Pacer Check Remote Pacer Check Remote 6 M FU STROKE, INCOMPLETE QUADRIPALEGIC. RX HERE Reason for Visit Atrial fibrillation Bilateral lower extremity edema CVA (cerebral vascular accident) Sick sinus syndrome Chief Complaint Admit Date GNR UTI, BACTEREMIA March 27, 2024 2 :37pm DEBILITY RX HERE August 08, 2024 12:00 pm 7 M FU August 08, 2024 2:22p m Reason for Visit Admit Date Atrial fibrillation March 27, 2024 2 :37pm Benign prostate hyperplasia March 2:37pm Debility March 27, 2024 2 :37pm Depression March 27, 2024 2 :37pm Essential (primary) hypertension March 27, 2024 2:37pm Neurogenic bladder March 27, 2024 2 :37pm Recurrent UTI March 27, 2024 2 :37pm Spinal cord injury March 27, 2024 2 :37pm Vitamin D deficiency March 27, 2024 2:37pm 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 Ja raudel 2024 2:37pm Acute encephalopathy March 27, 2024 2:37pm Bacteremia March 27, 2024 2 :37pm CVA (cerebral vascular accident) March 27, 2024 2:37pm Hypokalemia March 27, 2024 2 :37pm Aortic valve stenosis August 08, 2024 2:2 2pm Atrial fibrillation August 08, 2024 2:22p m Bilateral lower extremity edema July 2:22pm History of permanent cardiac pacemaker p lacement August 08, 2024 2:22pm CVA (cerebral vascular accident) July 2:22pm Essential hypertension August 08, 2024 2: 22pm History of permanent cardiac pacemaker p lacement August 16, 2024 2:59pm Sick sinus syndrome August 16, 2024 2:59p m Chief Complaint Admit Date 7 M FU August 08, 2024 2:22p m Pacer Check Remote August 16, 2024 9:00a m Reset home monitor. [employer] August 16, 2024 2:59pm DEBILITY RX HERE August 29, 2024 3:30 pm Reason for Visit Admit Date Aortic valve stenosis August 08, 2024 2:2 2pm Atrial fibrillation August 08, 2024 2:22p m Bilateral lower extremity edema July 2:22pm History of permanent cardiac pacemaker p lacement August 08, 2024 2:22pm CVA (cerebral vascular accident) July 2:22pm Essential hypertension August 08, 2024 2: 22pm History of permanent cardiac pacemaker p lacement August 16, 2024 2:59pm Sick sinus syndrome August 16, 2024 2:59p m Chief Complaint Admit Date 7 M FU August 08, 2024 2:22p m Pacer Check Remote August 16, 2024 9:00a m Reset home monitor. [employer] August 16, 2024 2:59pm DEBILITY RX HERE September 06, 2024 5:00 pm Chief Complaint Admit Date 7 M FU August 08, 2024 2:22p m Pacer Check Remote August 16, 2024 9:00a m Reset home monitor. [employer] August 16, 2024 2:59pm Pacer Check Remote September 15, 2024 9:16p m DEBILITY RX HERE September 27, 2024 5:00 pm Chief Complaint Admit Date 7 M FU August 08, 2024 2:22p m Pacer Check Remote August 16, 2024 9:00a m Reset home monitor. [employer] August 16, 2024 2:59pm Pacer Check Remote September 15, 2024 9:16p m Pacer Check Remote October 15, 2024 9:0 9pm DEBILITY RX HERE October 25, 2024 5: 00pm Family History No Family History Records Found Relationship Condition Age at Onset Recorded Date/T dominique Not Specified Family history of hypertension Unknown mother Malignant neoplasm of breast Unknown Malignant neoplasm Unknown sister Diabetes mellitus Unknown Hypertension Unknown Congestive heart failure Unknown Kidney disorder Unknown sister Congestive heart failure Unknown Cardiac defibrillator in place Unknown Advance Directives No Advanced Directives Records Found Advance Directive Response Recorded Date/ Time Advance Directives Yes February 3:16pm Living Will Yes March 29 5:33pm Power of Destaticizer Feeder Yes March 29, 2019 5:33pm Advance Directive Response Recorded Date/ Time Advance Directives Yes February 3:16pm Living Will Yes July 12, 2021 9:42am Power of Destaticizer Feeder Yes July 12 9:42am Latest Code Status on File Code Status Date Activated Date Inactivated Comments Full Code 07/16/2021 2:56 PM Full Code 02/19/2015 5:46 PM 04/03/2015 4:31 PM Full Code 02/17/2015 5:02 PM 02/19/2015 5:46 PM Advance Directive Response Recorded Date/ Time Name of Medical Power of Destaticizer Feeder ZCAH AQUINO July 12, 2021 9:42am Advance Directives Yes February 3:16pm Living Will Yes July 18, 2021 12 :44pm Power of Destaticizer Feeder Yes July 18, 2021 12:44pm Advance Directive Response Recorded Date/ Time Name of Medical Power of Destaticizer Feeder ZACH AQUINO July 12, 2021 9:42am Name of Medical Power of Destaticizer Feeder Zach Aquino (s pouse) July 18, 2021 12:44pm Advance Directives Yes February 3:16pm Living Will Yes July 25, 2021 8 :30am Power of Destaticizer Feeder Yes July 25, 2021 8:30am Advance Directive Response Recorded Date/ Time Name of Medical Power of Destaticizer Feeder ZACH AQUINO July 12, 2021 9:42am Name of Medical Power of Destaticizer Feeder Zach Aquino (spouse) July 18, 2021 12:44pm Name of Medical Power of Destaticizer Feeder zach July 25, 2021 8:30am Name of Medical Power of Destaticizer Feeder Bulmaro Aquino and Zach Aquino August 17, 2021 5:02pm Name of Medical Power of Destaticizer Feeder UNABLE TO ANSWER September 07, 2021 10:00am Advance Directives Yes February 3:16pm Living Will Yes September 07, 2021 10:00am Power of Destaticizer Feeder Yes September 07 10:00am Advance Directive Response Recorded Date/ Time Advance Directives Yes February 2:16pm Living Will Yes September 07, 2021 9:00am Power of Destaticizer Feeder Yes September 07 9:00am Advance Directive Response Recorded Date/ Time Advance Directives Yes February 3:16pm Living Will No August 25, 2022 2:16pm Power of Destaticizer Feeder No August 25 2:16pm Advance Directive Response Recorded Date/ Time Advance Directives Yes February 3:16pm Living Will No October 15, 2022 3:54pm Power of Destaticizer Feeder No October 15 3:54pm Advance Directive Response Recorded Date/ Time Living Will Yes March 28 1:45pm Do you have a Healthcare Power of Destaticizer Feeder? Yes March 28, 2024 1:45pm Name of Medical Power of Destaticizer Feeder Bartolo March 28, 2024 1:45pm Advance Directives Yes February 3:16pm Advance Directive Response Recorded Date/ Time Advance Directives Yes February 3:16pm Reason for Referral Specialty Diagnoses / Procedures Referred By Lety herman Referred To Contact Procedures PACEMAKER/ICD INTERROGATION Shanika Jose MD [address] [facility] [address] [place] [address] Referral ID Status Reason Start Date Expiration Date V isits Requested Visits Authorized [id number] New Request 07/23/2021 08/17/2022 1 1 Specialty Diagnoses / Procedures Referred By Contac t Referred To Contact Procedures DVT/VTE RISK ASSESSMENT Shanika Jose MD [address] [facility] [address] [place] [address] Referral ID Status Reason Start Date Expiration Date V isits Requested Visits Authorized [id number] New Request 07/22/2021 08/16/2022 1 1 Specialty Diagnoses / Procedures Referred By Contac t Referred To Contact Procedures ECG Michael Roblero MD [address] [place] [address] Referral ID Status Reason Start Date Expiration Date V isits Requested Visits Authorized [id number] New Request 07/22/2021 08/16/2022 1 1 Summary Purpose Additional Source Comments Goals (unrecognized section and content) Goals may be documented in a n alternate section Scheduled Active and Recently Administ ered Medications (unrecognized section and content) Medication Order 07/16/2021 07/17/2021 07/18/2021 aspirin chewable tablet 81 mg 81 mg, Oral, DAILY, First dose on 07/13/21 at 1415, Until Discontinued 751 (Given - Provider: Sondra Delaney RN) 0915 (Given - Provider: Marc Mancilla, PRUDENCIO) 0858 (Given - Provider: Steffi Worrell, PRUDENCIO) atorvastatin (LIPITOR) tablet 40 mg 40 mg, Oral, DAILY AT BEDTIME, First dose on Wed07/13/21 at 2100, Until Discontinued 2128 (Given - Provider: Catarino Leon, PRUDENCIO) 2001 (Given - Provider: Catarino Leon, RN) baclofen (LIORESAL) tablet 10 mg 10 mg, Oral, DAILY AT BEDTIME, First dose on Wed07/14/21 at 2100, Until Discontinued 2128 (Given - Provider: Catarino Leon, RN) 2003 (Given - Provider: Catarino Leon, RN) benzocaine-docusate sodium (ENEMEEZ) 20-283 MG 1 enema 1 enema, Rectal, DAILY EARLY EVENING, First dose on Wed07/14/21 at 1800, Until Discontinued 2132 (Not Given - Provider: Catarino Leon RN - Reason: Other - Comment: patient having regular BMs) 2003 (Not Given - Provider: Catarino Leon RN - Reason: Other - Comment: pt had a BM) carveDILOL (COREG) tablet 12.5 mg 12.5 mg, Oral, EVERY 12 HOURS, First dose (after last modification) on Wed07/16/21 at 2100, Until Discontinued, 2128 (Given - Provider: Catarino Leon RN) 914 (Given - Provider: Marc Mancilla RN)2000 (Given - Provider: Catarino Leon RN) 857 (Given - Provider: Steffi Worrell, PRUDENCIO) carveDILOL (COREG) tablet 6.25 mg (CANCELED) 6.25 mg, Oral, EVERY 12 HOURS, First dose (after last modification) on Wed07/15/21 at 2100, Until Discontinued, 751 (Given - Provider: Sondra Delaney RN) carveDILOL (COREG) tablet 6.25 mg (COMPLETED) 6.25 mg, Oral, ONCE, 1 dose, On Wed07/16/21 at 0900, 1018 (Given - Provider: Sondra Delaney RN) citalopram (CELEXA) tablet 40 mg 40 mg, Oral, DAILY AT BEDTIME, First dose on Wed07/14/21 at 2100, Until Discontinued 2128 (Given - Provider: Catarino Leon RN) 1999 (Given - Provider: Catarino Leon RN) Enoxaparin Sodium (LOVENOX) injection 40 mg(Linked Group 1) 40 mg, Subcutaneous, DAILY, First dose on Wed07/13/21 at 1415, Until Discontinued, , Indications: DVT/PE prophylaxis 075 (Given - Provider: Sondra Delaney RN) 09 (Given - Provider: Marc Mancilla, PRUDENCIO) 0859 (Given - Provider: Steffi Worrell, PRUDENCIO) finasteride (PROSCAR) tablet 5 mg 5 mg, Oral, DAILY, First dose on Wed07/14/21 at 1115, Until Discontinued, Do not split, break, crush or open this medication. Contact pharmacy if altered route or dose needed. 075 (Given - Provider: Sondra Delaney RN) 914 (Given - Provider: Marc Mancilla RN) 08 (Given - Provider: Steffi Worrell, PRUDENCIO) lisinopril (PRINIVIL) tablet 20 mg 20 mg, Oral, EVERY 12 HOURS, First dose (after last modification) on Wed07/14/21 at 2100, Until Discontinued 075 (Given - Provider: Sondra Delaney RN)2128 (Given - Provider: Catarino Leon, RN) 914 (Given - Provider: Marc Mancilla, RN)2000 (Given - Provider: Catarino Leon, RN) 858 (Given - Provider: Steffi Worrell, RN) NIFEdipine (PROCARDIA XL) tablet XL 30 mg 30 mg, Oral, DAILY, First dose on Miya 07/17/21 at 0900, Until Discontinued, Slow release product. Do not chew or crush. 09 (Given - Provider: Marc Mancilla RN) 857 (Given - Provider: Steffi Worrell RN) Perflutren Lipid Microsphere (DEFINITY) 1.5 mL in Normal Saline Flush 0.9% 8.5 mL (COMPLETED) 10 mL, Intravenous, ONCE, 1 dose, On Miya 07/17/21 at 0945, FOR ECHO PROCEDURE ONLY Dilute 1.5 mL of Definity with 8.5 mL of 0.9% sodium chloride and draw up in a 10 mL syringe. Administration during procedure as directed by physician. Recorded MAR dose is cumulative amount given during procedure., Echo Procedure 906 (Given - Radiology - Provider: Lora Jane RN - Comment: [id number]) senna (SENOKOT) tablet 8.6 mg(Linked Group 2) 8.6 mg, Oral, DAILY EVERY MORNING, First dose on 07/12/21 at 1315, Until Discontinued, Hold if BM in last 2 hours. 075 (Given - Provider: Sondra Delaney RN) 09 (Given - Provider: Marc Mancilla RN) 0858 (Given - Provider: Steffi Worrell, PRUDENCIO) senna (SENOKOT) tablet 8.6 mg(Linked Group 2) 8.6 mg, Per NG tube, DAILY EVERY MORNING, First dose on 07/12/21 at 1315, Until Discontinued, Hold if BM in last 2 hours. 075 (See Alternative - Provider: Sondra Delaney RN) 0914 (See Alternative - Provider: Marc Mancilla RN) 0858 (See Alternative - Provider: Steffi Worrell RN) Tamsulosin HCl (FLOMAX) capsule 0.4 mg 0.4 mg, Oral, DAILY AT BEDTIME, First dose on Wed07/14/21 at 2100, Until Discontinued, Slow release product. Do not chew or crush 2128 (Given - Provider: Catarino Leon RN) 2000 (Given - Provider: Catarino Leon RN) PRN Medication Order 07/16/2021 07/17/2021 07/18/2021 acetaminophen (TYLENOL) tablet 325 mg(Linked Group 3) 325 mg, Oral, EVERY 4 HOURS NEEDED, Starting on 07/12/21 at 1306, Until Wed07/18/21 at 1235, Mild Pain, Moderate Pain, Maximum dose of acetaminophen is 4000 mg from all sources in 24 hours. 2129 (See Alternative - Provider: Catarino Leon RN) 2000 (See Alternative - Provider: Catarino Leon RN) acetaminophen (TYLENOL) tablet 325 mg(Linked Group 3) 325 mg, Per NG tube, EVERY 4 HOURS NEEDED, Starting on 07/12/21 at 1306, Until Wed07/18/21 at 1235, Mild Pain, Moderate Pain, Maximum dose of acetaminophen is 4000 mg from all sources in 24 hours. 2129 (See Alternative - Provider: Catarino Leon RN) 2000 (See Alternative - Provider: Catarino Leon RN) acetaminophen (TYLENOL) tablet 650 mg(Linked Group 3) 650 mg, Oral, EVERY 4 HOURS NEEDED, Starting on 07/12/21 at 1306, Until Wed07/18/21 at 1235, Severe Pain, Oral temp > 99.5, Maximum dose of acetaminophen is 4000 mg from all sources in 24 hours. 2129 (Given - Provider: Catarino Leon RN) 2000 (Given - Provider: Catarino Leon RN) acetaminophen (TYLENOL) tablet 650 mg(Linked Group 3) 650 mg, Per NG tube, EVERY 4 HOURS NEEDED, Starting on 07/12/21 at 1306, Until Wed07/18/21 at 1235, Severe Pain, Oral temp > 99.5, Maximum dose of acetaminophen is 4000 mg from all sources in 24 hours. 2129 (See Alternative - Provider: Catarino Leon, RN) 2000 (See Alternative - Provider: Catarino Leon, PRUDENCIO) hydrALAZINE (APRESOLINE) injection 10 mg 10 mg, Intravenous, EVERY 1 HOUR NEEDED, Starting on Wed07/14/21 at 0847, Until Wed07/18/21 at 1235, Other, SBP >220, HR <60 labetalol (NORMODYNE) injection 10 mg 10 mg, Intravenous, EVERY 1 HOUR NEEDED, Starting on Wed07/14/21 at 0847, Until Wed07/18/21 at 1235, SBP >220, Hold if Heart Rate LESS THAN 60 beats per minute. For vials: labetalol should be treated as a SINGLE USE VIAL. Discard remaining contents after one use. polyethylene glycol (MIRALAX) packet 17 g(Linked Group 4) 17 g, Oral, DAILY NEEDED, Starting on 07/12/21 at 1306, Until Wed07/18/21 at 1235, Constipation If No Bowel Movement in 48 Hours polyethylene glycol (MIRALAX) packet 17 g(Linked Group 4) 17 g, Per NG tube, DAILY NEEDED, Starting on 07/12/21 at 1306, Until Wed07/18/21 at 1235, Constipation If No Bowel Movement in 48 Hours Linked Groups Order Group 1: Enoxaparin Sodium (LOVENOX) injection 40 mgJump to med 40 mg, Subcutaneous, DAILY, First dose on Wed07/13/21 at 1415, Until Discontinued

Indications: DVT/PE prophylaxis And PLATELET COUNT (CANCELED) Routine, EVERY 3 DAYS AM LAB, First occurrence on Wed07/16/21 at 0500, Until Specified, New collection Group 2: senna (SENOKOT) tablet 8.6 mgJump to med 8.6 mg, Oral, DAILY EVERY MORNING, First dose on 07/12/21 at 1315, Until Discontinued
Hold if BM in last 2 hours.
Or senna (SENOKOT) tablet 8.6 mgJump to med 8.6 mg, Per NG tube, DAILY EVERY MORNING, First dose on 07/12/21 at 1315, Until Discontinued
Hold if BM in last 2 hours.
Group 3: acetaminophen (TYLENOL) tablet 325 mgJump to med 325 mg, Oral, EVERY 4 HOURS NEEDED, Starting on 07/12/21 at 1306, Until Wed07/18/21 at 1235, Mild Pain, Moderate Pain
Maximum dose of acetaminophen is 4000 mg from all sources in 24 hours.
Or acetaminophen (TYLENOL) tablet 325 mgJump to med 325 mg, Per NG tube, EVERY 4 HOURS NEEDED, Starting on 07/12/21 at 1306, Until Wed07/18/21 at 1235, Mild Pain, Moderate Pain
Maximum dose of acetaminophen is 4000 mg from all sources in 24 hours.
Or acetaminophen (TYLENOL) tablet 650 mgJump to med 650 mg, Oral, EVERY 4 HOURS NEEDED, Starting on 07/12/21 at 1306, Until Wed07/18/21 at 1235, Severe Pain, Oral temp > 99.5
Maximum dose of acetaminophen is 4000 mg from all sources in 24 hours.
Or acetaminophen (TYLENOL) tablet 650 mgJump to med 650 mg, Per NG tube, EVERY 4 HOURS NEEDED, Starting on 07/12/21 at 1306, Until Wed07/18/21 at 1235, Severe Pain, Oral temp > 99.5
Maximum dose of acetaminophen is 4000 mg from all sources in 24 hours.
Group 4: polyethylene glycol (MIRALAX) packet 17 gJump to med 17 g, Oral, DAILY NEEDED, Starting on 07/12/21 at 1306, Until Wed07/18/21 at 1235, Constipation If No Bowel Movement in 48 Hours Or polyethylene glycol (MIRALAX) packet 17 gJump to med 17 g, Per NG tube, DAILY NEEDED, Starting on 07/12/21 at 1306, Until Wed07/18/21 at 1235, Constipation If No Bowel Movement in 48 Hours Scheduled Medication Order 07/23/2021 07/24/2021 07/25/2021 apixaban (ELIQUIS) tablet 5 mg 5 mg, Oral, EVERY 12 HOURS, First dose on Wed07/27/21 at 0900, Until Discontinued, Due to the rapid onset of action of apixaban, no overlap is needed with other anticoagulants (e.g. enoxaparin, heparin)., Indications: Atrial Fibrillation aspirin chewable tablet 81 mg 81 mg, Oral, DAILY, 4 doses, First dose on Wed07/23/21 at 0900, Last dose on Wed07/26/21 at 0900 926 (Given - Provider: Patti Lopez RN) 100 (Given - Provider: Catrachito Bardales RN) atorvastatin (LIPITOR) tablet 40 mg 40 mg, Oral, DAILY AT BEDTIME, First dose on Wed07/22/21 at 2100, Until Discontinued 2129 (Given - Provider: Catrachito Pedraza RN) 2022 (Given - Provider: Angie Mcclelland RN) carveDILOL (COREG) tablet 12.5 mg 12.5 mg, Oral, EVERY 12 HOURS, First dose on Wed07/22/21 at 2100, Until Discontinued, 926 (Given - Provider: Patti Lopez RN)2129 (Given - Provider: Catrachito Pedraza RN) 1003 (Given - Provider: Catrachito Bardales RN)2022 (Given - Provider: Angie Mcclelland RN) citalopram (CELEXA) tablet 40 mg 40 mg, Oral, DAILY AT BEDTIME, First dose on Wed07/22/21 at 2100, Until Discontinued 2129 (Given - Provider: Catrachito Pedraza RN) 2022 (Given - Provider: Angie Mcclelland RN) Enoxaparin Sodium (LOVENOX) injection 40 mg(Linked Group 1) 40 mg, Subcutaneous, EVERY 24 HOURS, 3 doses, First dose on Miya 07/24/21 at 0900, Last dose on Wed07/26/21 at 0900, , Indications: DVT/PE prophylaxis 1003 (Given - Provider: Catrachito Bardales RN) gabapentin (NEURONTIN) capsule 200 mg 200 mg, Oral, 3 TIMES DAILY, First dose (after last modification) on Wed07/23/21 at 2100, Until Discontinued 2129 (Given - Provider: Catrachito Pedraza RN) 1002 (Given - Provider: Catrachito Bardales RN)1443 (Given - Provider: Catrachito Bardales RN)2022 (Given - Provider: Angie Mcclelland RN) gabapentin (NEURONTIN) capsule 600 mg (CANCELED) 600 mg, Oral, 3 TIMES DAILY, First dose on Wed07/22/21 at 2200, Until Discontinued 926 (Given - Provider: Patti Lopez RN)1339 (Given - Provider: Patti Lopez RN) hydrocortisone 2.5 % ointment 1 Application 1 Application, Topical, 2 TIMES DAILY, First dose on Wed07/23/21 at 1700, Until Discontinued, Apply to neck and jawline 1817 (Given - Provider: Mary Hansen RN) 1003 (Given - Provider: Catrachito Bardales RN)173 (Given - Provider: Catrachito Bardales RN) lisinopril (PRINIVIL) tablet 20 mg 20 mg, Oral, DAILY, First dose on Wed07/23/21 at 0900, Until Discontinued 926 (Given - Provider: Patti Lopez RN) 100 (Given - Provider: Catrachito Bardales RN) NIFEdipine (PROCARDIA XL) tablet XL 30 mg 30 mg, Oral, DAILY, First dose on Wed07/23/21 at 0900, Until Discontinued, Slow release product. Do not chew or crush. 926 (Given - Provider: Patti Lopez RN) 100 (Given - Provider: Catrachito Bardales RN) polyethylene glycol (MIRALAX) packet 17 g 17 g, Oral, DAILY, First dose on Wed07/23/21 at 0900, Until Discontinued 926 (Given - Provider: Patti Lopez RN) 100 (Given - Provider: Catrachito Bardales RN) potassium chloride 10 mEq in sterile water 100 ml premix IVPB (COMPLETED) 10 mEq, Intravenous, Administer over 60 Minutes, EVERY 1 HOUR, 4 doses, First dose on Wed07/23/21 at 1000, Last dose on Wed07/23/21 at 1300 1039 ($$New Bag$$ - Provider: Patti Lopez RN)1108 ($$New Bag$$ - Provider: Patti Lopez RN)1137 ($$New Bag$$ - Provider: Patti Lopez RN)1202 ($$New Bag$$ - Provider: Patti Lopez RN)1604 (Completed (See MIV) - Provider: Mary Hansen RN)1700 (Stopped - Provider: Catrachito Pedraza RN) senna (SENOKOT) tablet 17.2 mg 17.2 mg, Oral, DAILY, First dose on Wed07/23/21 at 0900, Until Discontinued 925 (Given - Provider: Patti Lopez, RN) 1003 (Given - Provider: Catrachito Bardales RN) PRN Medication Order 07/23/2021 07/24/2021 07/25/2021 acetaminophen (TYLENOL) tablet 650 mg 650 mg, Oral, EVERY 6 HOURS NEEDED, Starting on Wed07/22/21 at 2004, Until Wed07/25/21 at 0739, Mild Pain, Oral temp > 100.4 F, Maximum dose of acetaminophen is 4000 mg from all sources in 24 hours. 2129 (Given - Provider: Catrachito Pedraza, PRUDENCIO) guaiFENesin (ROBITUSSIN) oral solution 400 mg 400 mg, Oral, EVERY 6 HOURS NEEDED, Starting on Wed07/22/21 at 2004, Until Wed07/25/21 at 39, Cough, Congestion melatonin tablet 6 mg 6 mg, Oral, DAILY AT BEDTIME NEEDED, Starting on Wed07/22/21 at 2004, Until Wed07/25/21 at 39, Insomnia senna (SENOKOT) tablet 8.6 mg 8.6 mg, Oral, EVERY 12 HOURS NEEDED, Starting on Wed07/22/21 at 2004, Until Wed07/25/21 at 39, Constipation If No Bowel Movement in 48 Hours sodium chloride 0.9% IV solution 250 mL Intravenous, at 20 mL/hr, NEEDED, Starting on Wed07/22/21 at 2004, Until Wed07/25/21 at 0739, Carrier Fluid - See Admin. Inst, 250mL 0.9NS to be used as carrier fluid for intermittent small volume or piggyback medication administration as needed. Infusion rate of the carrier fluid should be set at 20 mL/hr unless the rate as the intermittent medication is less than 20 mL/hr. For intermittent medications with a rate less than 20 mL/hr set the carrier fluid at that rate of the intermittent or piggy back medication. Linked Groups Order Group 1: Enoxaparin Sodium (LOVENOX) injection 40 mgJump to med 40 mg, Subcutaneous, EVERY 24 HOURS, 3 doses, First dose on Miya 07/24/21 at 0900, Last dose on 07/26/21 at 0900

Indications: DVT/PE prophylaxis And PLATELET COUNT (CANCELED) Routine, EVERY 3 DAYS AM LAB, First occurrence on 07/26/21 at 0500, Until Specified, New collection Care Teams (unrecognized sec tion and content) General Production Worker Relationship Specialty Start Date End Date Mallory Mcpherson DO [address] [facility] [place] [address] PCP - General Family Medicine 02/17/15 Ignacio Quan MD PCP - Referring 1 Cardiovascular Medicine 02/18/15 Heath Mcdowell MD [address] [place], [place] [id number] PCP - Referring 2 Neurological Surgery 02/18/15 Caesar Doshi MD [address] [id number] Urology 04/02/15 Heath Mcdowell [address] [place], [place] [id number] 02/18/15 07/13/21 General Production Worker Relationship Specialty Start Date End Date Mallory Mcpherson DO [address] [place] [address] PCP - General Family Medicine 02/17/15 Ignacio Quan MD PCP - Referring 1 Cardiovascular Medicine 02/18/15 Heath Mcdowell MD [address] [place], [place] [id number] PCP - Referring 2 Neurological Surgery 02/18/15 Caesar Doshi MD [address] [id number] Urology 04/02/15 General Production Worker Relationship Specialty Start Date End Date Kevin Correia) [facility] [address] [place] [address] 01/03/02 Team Status: Active Member Role Status Dates Dr. Mallory Mcpherson DO Family Provider Active Dr. Mallory Mcpherson DO Primary Care Provider Active Team Status: Inactive Member Role Status Dates Dr. Mallory Mcpherson DO Primary Care Provider, Referri ng Provider Active Alessandra Melchor TAR KETTLE RUNNER, TAR KETTLE RUNNER-C Attending Provider Active Team Status: Inactive Member Role Status Dates Dr. Mallory Mcpherson DO Primary Care Provider, Referri ng Provider Active Saundra Hernandez Active Dr. Ignacio Quan MD Attending Provider Active Team Status: Inactive Member Role Status Dates Dr. Mallory Mcpherson DO Primary Care Provider, Attendi ng Provider Active Dr. Luis Carlos Gallardo MD Referring Provider Active Team Status: Inactive Member Role Status Dates Dr. Mallory Mcpherson DO Primary Care Provider, Referri ng Provider Active Saundra Hernandez Active Dr. Iker Ratliff MD Attending Provider Active Team Status: Active Member Role Status Dates Dr. Mallory Mcpherson DO Primary Care Provider Active Juaquin Zavala MD Emergency Provider Active Dr. Marc Cantu MD Attending Provider Active Team Status: Active Member Role Status Dates Dr. Mallory Mcpherson DO Primary Care Provider Active Juaquin Zavala MD Emergency Provider Active Dr. Marc Cantu MD Admit Provider, At tending Provider, Other Provider Active Team Status: Active Member Role Status Dates Dr. Mallory Mcpherson DO Primary Care Provider, Attendi ng Provider Active Dr. Luis Carlos Gallardo MD Referring Provider Active Team Status: Inactive Member Role Status Dates Dr. Mallory Mcpherson DO Primary Care Provider Active Juaquin Zavala MD Emergency Provider Active Dr. Marc Cantu MD Admit Provider, Attending Provid er Active Team Status: Inactive Member Role Status Dates Dr. Mallory Mcpherson DO Primary Care Provider Active Dr. Lora Lanier MD Emergency Provider Active Team Status: Inactive Member Role Status Dates Dr. Mallory Mcpherson DO Primary Care Provider Active Dr. Lora Lanier MD Attending Provider, Emergency Provider Active Team Status: Inactive Member Role Status Dates Dr. Mallory Mcpherson DO Primary Care Provider Active Alessandra Melchor TAR KETTLE RUNNER, TAR KETTLE RUNNER-C Attending Provider, Referring P gurvinder Active Team Status: Inactive Member Role Status Dates Dr. Mallory Mcpherson DO Primary Care Provider Active Dr. Iker Ratliff MD Attending Provider Active Team Status: Inactive Member Role Status Dates Dr. Mallory Mcpherson DO Primary Care Pro vider, Attending Provider, Referring Provider Active Team Status: Active Member Role Status Dates Dr. Miguel Carrillo DO Primary Care Provider Active Team Status: Inactive Member Role Status Dates Dr. Mallory Mcpherson DO Primary Care Provider Active Start: March 27, 2024 End: May 01, 2024 Dr. Luis Carlos Gallardo MD Admit Provider Active Star t: March 27, 2024 End: May 01, 2024 Dr. Luis Carlos Gallardo MD Attending Provider Active Start: March 27, 2024 End: May 01, 2024 Dr. Mallory Stuart MD Other Provider Active Start: March 27, 2024 End: May 01, 2024 Dr. Caesar Doshi MD Other Provider Active Start: March 27, 2024 End: May 01, 2024 Team Status: Active Member Role Status Dates Dr. Mallory Mcpherson DO Primary Care Provider Active Start: August 08, 2024 Dr. Luis Carlos Gallardo MD Attending Provider Active Start: August 08, 2024 Dr. Luis Carlos Gallardo MD Referring Provider Active Start: August 08, 2024 Team Status: Inactive Member Role Status Dates Dr. Mallory Mcpherson DO Referring Provider Active Start: August 08, 2024 End: August 08, 2024 Alessandra Meclhor TAR KETTLE RUNNER, TAR KETTLE RUNNER-C Attending Provider Active Start: August 08, 2024 End: August 08, 2024 Dr. Mgiuel Carrillo DO Primary Care Provider Active Start: August 08, 2024 End: August 08, 2024 Team Status: Inactive Member Role Status Dates Dr. Miguel Carrillo DO Primary Care Provider Active Start: August 16, 2024 End: August 16, 2024 Dr. Miguel Carrillo DO Referring Provider Active Start: August 16, 2024 End: August 16, 2024 Saundra Hernandez Attending Provider Active Start: 2024 End: August 16, 2024 Team Status: Active Member Role Status Dates Dr. Mallory Mcpherson DO Primary Care Provider Active Start: August 16, 2024 Dr. Luis Carlos Gallardo MD Attending Provider Active Start: August 16, 2024 Dr. Luis Carlos Gallardo MD Referring Provider Active Start: August 16, 2024 Team Status: Inactive Member Role Status Dates Dr. Miguel Carrillo DO Primary Care Provider Active Start: August 16, 2024 End: August 16, 2024 Dr. Iker Ratliff MD Attending Provider Active S tart: August 16, 2024 End: August 16, 2024 Team Status: Inactive Member Role Status Dates Dr. Miguel Carrillo DO Primary Care Provider Active Start: August 16, 2024 End: August 16, 2024 Dr. Miguel Carrillo DO Referring Provider Active Start: August 16, 2024 End: August 16, 2024 Dr. Iker Ratliff MD Attending Provider Active S tart: August 16, 2024 End: August 16, 2024 Team Status: Active Member Role Status Dates Dr. Mallory Mcpherson DO Primary Care Provider Active Start: August 29, 2024 Dr. Luis Carlos Gallardo MD Attending Provider Active Start: August 29, 2024 Dr. Luis Carlos Gallardo MD Referring Provider Active Start: August 29, 2024 Team Status: Active Member Role Status Dates Dr. Mallory Mcpherson DO Primary Care Provider Active Start: September 06, 2024 Dr. Luis Carlos Gallardo MD Attending Provider Active Start: September 06, 2024 Dr. Luis Carlos Gallardo MD Referring Provider Active Start: September 06, 2024 Team Status: Active Member Role/Relationship Status Dates Dr. Miguel Carrillo DO Primary Care Provider Active Team Status: Inactive Member Role/Relationship Status Dates Dr. Mallory Mcpherson DO Referring Provider Active Start: August 08, 2024 End: August 08, 2024 Alessandra Melchor TAR KETTLE RUNNER, TAR KETTLE RUNNER-C Attending Provider Active Start: August 08, 2024 End: August 08, 2024 Dr. Migule Carrillo DO Primary Care Provider Active Start: August 08, 2024 End: August 08, 2024 Team Status: Inactive Member Role/Relationship Status Dates Dr. Miguel Carrillo DO Primary Care Provider Active Start: August 16, 2024 End: August 16, 2024 Dr. Iker Ratliff MD Attending Provider Active S tart: August 16, 2024 End: August 16, 2024 Team Status: Inactive Member Role/Relationship Status Dates Dr. Miguel Carrillo DO Primary Care Provider Active Start: August 16, 2024 End: August 16, 2024 Dr. Miguel Carrillo DO Referring Provider Active Start: August 16, 2024 End: August 16, 2024 Dr. Iker Ratliff MD Attending Provider Active S tart: August 16, 2024 End: August 16, 2024 Team Status: Inactive Member Role/Relationship Status Dates Dr. Miguel Carrillo DO Primary Care Provider Active Start: September 15, 2024 End: September 15, 2024 Dr. Iker Ratliff MD Attending Provider Active S tart: September 15, 2024 End: September 15, 2024 Team Status: Active Member Role/Relationship Status Dates Dr. Mallory Mcpherson DO Primary Care Provider Active Start: September 27, 2024 Dr. Luis Carlos Gallardo MD Attending Provider Active Start: September 27, 2024 Dr. Luis Carlos Gallardo MD Referring Provider Active Start: September 27, 2024 Team Status: Inactive Member Role/Relationship Status Dates Dr. Miguel Carrillo DO Primary Care Provider Active Start: October 15, 2024 End: October 15, 2024 Dr. Iker Ratliff MD Attending Provider Active S tart: October 15, 2024 End: October 15, 2024 Team Status: Active Member Role/Relationship Status Dates Dr. Miguel Carrillo DO Primary Care Provider Active Start: October 17, 2024 Dr. Miguel Carrillo DO Attending Provider Active Start: October 17, 2024 Dr. Miguel Carrillo DO Referring Provider Active Start: October 17, 2024 Team Status: Active Member Role/Relationship Status Dates Dr. Mallory Mcpherson DO Primary Care Provider Active Start: October 25, 2024 Dr. Luis Carlos Gallardo MD Attending Provider Active Start: October 25, 2024 Dr. Luis Carlos Gallardo MD Referring Provider Active Start: October 25, 2024 Team Status: Inactive Member Role/Relationship Status Dates Dr. Miguel Carrillo DO Primary Care Provider Active Start: October 17, 2024 End: October 17, 2024 Dr. Miguel Carrillo DO Attending Provider Active Start: October 17, 2024 End: October 17, 2024 Dr. Miguel Carrillo DO Referring Provider Active Start: October 17, 2024 End: October 17, 2024 Reason for Visit (unrecogniz ed section and content) Reason Comments Altered mental status Specialty Diagnoses / Procedures Referred By Contac t Referred To Contact Diagnoses Level 2 Stroke Alert Referral ID Status Reason Start Date Expiration Date Visits Re quested Visits Authorized [id number] 1 Reason Comments OT EVAL Specialty Diagnoses / Procedures Referred By Contac t Referred To Contact [facility] Diagnoses Quadriplegia, C5-C7 incomplete Procedures COMMUNITY/WORK REINTEGRATION TRAING EA 15 MIN Mallory Mcpherson DO [address] [place] [id number] [facility] [address] [place], [place] [id number] Referral ID Status Reason Start Date Expiration Date V isits Requested Visits Authorized [id number] Authorized 03/15/2021 03/14/2022 99 99 Care Team (unrecognized sect ion and content) Care Team Personnel Name: MALLORY MCPHERSON DO Position: P4 Physician - Primary Care Med Service: Active Provider Member Role: Primary Care Physician Address: Address: [facility] [place] [address] [place] Care Team Related Persons Name: ZACH AQUINO Address: Home [address], [place] [id number] (unrecognized sect ion and content) No Status Records FoundNo Status Records FoundNo Status Records FoundNo Status Records FoundNo Status Records Found INFORMATION SOURCE (unrecogn ized section and content) DATE CREATED AUTHOR 02/14/2022 [facility] DATE CREATED AUTHOR AUTHOR'S ORGANIZ ATION 04/10/2022 [facility] DATE CREATED AUTHOR AUTHOR'S ORGANIZ ATION 10/05/2023 [facility] ([place]) DATE CREATED AUTHOR AUTHOR'S ORGANIZ ATION 02/14/2024 [facility] DATE CREATED AUTHOR AUTHOR'S ORGANIZ ATION 11/10/2024 [facility] Source Comments (unrecognize d section and content) In the event this informatio n is protected by the Federal Confidentiality of Alcohol and Drug Abuse Patient Records regulations: The Federal rules restrict any use of the information to criminally investigate or prosecute any alcohol or drug abuse patient.[facility] FOR RECORDS PERTAINING TO PATIENTS WHO ARE OR HAVE BEEN ENROLLED IN A CHEMICAL DEPENDENCY/SUBSTANCEABUSE PROGRAM, SOME INFORMATION MAY BE OMITTED. This clinical summary was aggregated from multiple sources. Caution should be exercised in using it in the provision of clinical care. This summary normalizes information from multiple sources, and as a consequence, information in this document may materially change the coding, format and clinical context of patient data. In addition, data may be omitted in some cases. CLINICAL DECISIONS SHOULD BE BASED ON THE PRIMARY CLINICAL RECORDS. [facility] provides no warranty or guarantee of the accuracy or completeness of information in this document.
--- NOTE | 2024-11-13 16:27 | EKG12_ITS ---
Test Reason : Blood Pressure : */* mmHG Vent. Rate : 69 BPM Atrial Rate : 69 BPM P-R Int : 206 ms QRS Dur : 80 ms QT Int : 412 ms P-R-T Axes : 21 53 59 degrees QTcB Int : 441 ms Normal sinus rhythm Low voltage QRS Borderline ECG Confirmed by Ahmet Casas ([id number]), editor map HARJIT MARIN ([id number]) on 11/14/2024 11:05:03 AM Referred By: Confirmed By: Ahmet Casas
[2024-11-13 16:54] LABS: Mucous, Urine 0 SEEN /hpf (<or=2+)
[2024-11-13 17:03] LABS: Color, Urine Yellow (Yellow); Glucose, Dipstick Normal (Normal); Ketone-Dipstick Negative (Negative); Leukocyte Esterase-Dipstick 500 /ul (Negative); Nitrite-Dipstick Positive (Negative); Occult Blood-Urine 150 /ul (Negative); Protein-Dipstick 30 mg/dl (Negative); Specific Gravity, Urine 1.010 (1.002-1.030); Urine Bilirubin Dipstick Negative (Negative)
[2024-11-13 17:23] LABS: Red Blood Cells-Urine 10-25 SEEN /hpf (0-5)
[2024-11-13 17:24] LABS: Squamous Epithelial Cells - UA 0-5 SEEN /hpf (0-5)
[2024-11-13] MEDS: 0.9% Normal Saline (1000mL) 1,000 ML 999 ML IV (17:29)
[2024-11-13] MEDS: Meropenem 1 GM in 0.9% Normal Saline (100mL MB+) 100 ML IV (17:31)
[2024-11-13 17:55] LABS: Hematocrit 34.1 % (40-54); Hemoglobin 12.0 g/dL (13.0-16.5); Immature Granulocytes Count 0.050 X10^3/uL (0.0-0.0); Mean Corp Hgb Conc 35.2 g/dL (32-36); Mean Corpuscular Volume 88.6 fL (80-94); Mean Platelet Vol. 10.5 fl (6.2-12.0); NRBC Flagged by Analyzer 0 % (0-5); POSITIVE DIFFERENTIAL YES; Platelet Count 145 K/mm3 (150-450); RBC Distribution Width CV 14.0 % (11.6-14.6); RBC Distribution Width SD 44.8 fl (35.1-43.9); Red Blood Count 3.85 M/mm3 (4.6-6.2); White Blood Count 11.7 K/mm3 (4.4-11.0)
[2024-11-13 17:59] LABS: Prothrombin Time (Protime)PT. 17.2 SECONDS (11.7-14.9)
[2024-11-13 18:00] LABS: Partial Thromboplast Time 29.0 Seconds (24.1-36.2)
[2024-11-13 18:05] LABS: AST(SGOT) 20 U/L (<=37); Alanine Aminotransfer ALT/SGPT 18 U/L (<=46); Albumin, Serum 4.0 g/dL (3.4-4.8); Alkaline Phosphatase 58 U/L (40-129); Anion Gap 11 (5-15); BUN 23 mg/dL (4-19); BUN/Creat Ratio 19.3 RATIO (10-20); Calcium,Total 8.8 mg/dL (7.6-11.0); Carbon Dioxide 22.5 mmol/L (21.0-32.0); Chloride 104 mmol/L (98-108); Estimated Creatinine Clearance 65.62 ml/min (50-250); Globulin 3.1 g/dL (2.2-4.2); Glucose 114 mg/dL (70-99); Potassium 4.0 mmol/L (3.3-5.1)
--- NOTE | 2024-11-13 18:45 | EX.ED.DYSGE1 ---
HPI History of Present Illness Chief Complaint: Fever Detail of Chief Complaint: Tmax 102.6, change in mental status, history of frequent urinary tract infe Informant: spouse/S.O. and family Onset/Context/Timing Onset: Today (99) Context: Sudden Onset Timing: Continuous and Waxes and wanes Quality: Altered mental status, Tmax 102.6 Location: and son concerned he has a recurrent urinary tract infection. Current Severity: Moderate Maximum Severity: Moderate Worsened by: Self caths for the last 7 to 8 years Relieved by: Nothing Associated Symptoms Associated Symptoms: Altered mental status, fever, shaking chills per Narrative Narrative: Patient is a 79-year-old male. 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 He was brought to the emergency room because of altered mental status, temperature 102.6. Onset 99. gave to 500 mg acetaminophen tablets at 06 100 and at 12 noon. He is somnolent. He opens his eyes and attempts to answer questions. and son were the primary informant. He does have a history of BPH reviewing prior records as well as hypertension, neurogenic bladder, pacemaker, on anticoagulant. Prior similar symptoms: Yes Recent Illness/Hospitalization: No PFSH [facility] Medical History Neurogenic bladder MRSA (methicillin resistant staph aureus) culture positive Non-smoker Fever Dehydration Acute hypokalemia Transient hypotension Syncope Vision loss of right eye Acute UTI Anxiety Prostatic hypertrophy TIA (transient ischemic attack) Neurogenic bowel Sick sinus syndrome Neuropathy 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 Depression Hypertension Atrial fibrillation Anterior communicating artery aneurysm Atrial fibrillation History of DVT (deep vein thrombosis) AAA (abdominal aortic aneurysm) without rupture Sick sinus syndrome Family history of hypertension History of spinal cord injury Paraplegia Premature ventricular contractions BPH (benign prostatic hypertrophy) Depression Cervical spinal stenosis Spinal cord injury Neurogenic bladder Degenerative joint disease (DJD) of lumbar spine Anemia Central cord syndrome Subluxation of C6-C7 cervical vertebrae 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.9) Home Medications ?Medication ?Instructions ?Recorded ?Last Taken ?Type ascorbic acid (vitamin C) 500 mg 1,000 mg PO LUNCH supplement 08/17/21 02/11/24 History tablet tamsulosin 0.4 mg capsule 0.4 mg PO QHS Urine retention 30 09/03/21 02/27/24 21:10 Rx days #30 caps 0.4 mg citalopram 20 mg tablet 20 mg PO QHS depression 12/04/21 02/27/24 21:10 History 20 mg cholecalciferol (vitamin D3) 25 25 mcg PO DAILY supplement 02/12/24 Unknown History mcg (1,000 unit) capsule gabapentin 600 mg tablet 600 mg PO BID nerve pain 02/21/24 02/28/24 09:45 History 600 mg acetaminophen 500 mg tablet 1,000 mg (2 x 500 mg) PO Q6H PRN 04/27/24 Unknown Rx PRN Pain Score 1-10 #0 tabs methenamine hippurate 1 gram tablet 1 g PO BID 30 days #60 tabs 04/27/24 Unknown Rx potassium chloride 20 mEq 20 meq PO BIDCM 30 days #60 tabs 04/27/24 Unknown Rx tablet,extended release(part/cryst) carvedilol 12.5 mg tablet 12.5 mg PO BID BP #180 tabs 08/04/24 Unknown Rx triamterene 37.5 1 tab PO QAM 08/08/24 Unknown History mg-hydrochlorothiazide 25 mg tablet apixaban 5 mg tablet (Eliquis) 5 mg PO BID [facility]axing to [facility] 08/30/24 Unknown Rx [facility] #180 tabs amlodipine 5 mg tablet 5 mg PO QDAY this is a decrease in 09/20/24 Unknown Rx dose #90 tabs Allergy/AdvReac Type Severity Reaction Status Date / Time ceftriaxone Allergy Rash Verified 11/13/24 15:53 ciprofloxacin (From Cipro) Allergy Hives Verified 11/13/24 15:53 sulfamethoxazole (From Allergy PT UNSURE Verified 11/13/24 15:53 Bactrim) OF REACTION trimethoprim (From Bactrim) Allergy PT UNSURE Verified 11/13/24 15:53 OF REACTION Family History Mother Breast cancer Cancer Brain cancer Sister Diabetes Hypertension CHF (congestive heart failure) Kidney disease Sister CHF (congestive heart failure) Cardiac defibrillator in situ Other Family history of hypertension Surgical History History of neck surgery History of permanent cardiac pacemaker placement S/P cervical spinal fusion Social History household members: spouse Smoking Status: Never smoker alcohol intake: current alcohol intake frequency: holidays/special occasions only Alcohol type: wine substance use type: does not use caffeine: Yes Type: coffee Number of servings: 1 what type of physical activity do you participate in: other details: Health point frequency: 1-2 times per week duration: 45-60 minutes/day seatbelt use: always do you feel safe at home: Yes ROS ROS ED Review of Systems ROS Unobtainable: due to mental status Constitutional Constitutional ED: Reports chills and fever(s) Neurologic Neurologic: Reports other Details: Altered mental status, awareness, responsiveness EXAM Physical Exam Const Vital Signs: 11/13/24 15:54 11/13/24 15:56 11/13/24 16:15 Temperature 102.1 F H 99.8 F H Temperature Source Oral Oral Pulse Rate 73 76 Respiratory Rate 18 25 H Respiratory Effort Normal Non-Labored Respiratory Pattern Normal Blood Pressure 135/54 H 128/53 H Blood Pressure Mean 81 78 Pulse Ox 94 97 Oxygen Delivery Method Room Air Room Air 11/13/24 16:27 11/13/24 16:55 11/13/24 17:00 Temperature 99.9 F H 99.8 F H Temperature Source Oral Core Pulse Rate 74 73 Respiratory Rate 21 H 21 H Respiratory Effort Respiratory Pattern Blood Pressure 128/64 H 122/58 H Blood Pressure Mean 85 79 Pulse Ox 96 96 Oxygen Delivery Method Room Air Room Air Room Air 11/13/24 18:00 11/13/24 18:54 11/13/24 18:56 Temperature 99.9 F H 99.7 F H 99.7 F H Temperature Source Core Core Pulse Rate 65 63 62 Respiratory Rate 22 H 21 H 22 H Respiratory Effort Respiratory Pattern Blood Pressure 126/64 H 133/66 H 133/66 H Blood Pressure Mean 84 88 88 Pulse Ox 97 92 94 Oxygen Delivery Method Room Air Room Air Positive well nourished and well developed Constitutional Narrative: Patient does not appear well. BMI is 38.3. General Appearance ED: well developed and NAD; Negative for pallor HEENT HEENT Narrative: Head is atraumatic normocephalic. Ears normal. Nares patent. Posterior pharynx is normal. Eyes PERRL and EOMs intact bilaterally General Eye ED: Negative for pale conjunctiva or scleral icterus Neck no lymphadenopathy, supple and no JVD Resp normal respiratory effort and clear to auscultation bilaterally Cardio regular rate, regular rhythm, S1 normal heart sound, S2 normal heart sound and no murmurs GI normal to inspection, nondistended, normoactive bowel sounds, non-tender, non-distended and no masses; Negative for hepatosplenomegaly Palpation: soft Back/Spine no CVA tenderness Extremity normal to inspection General Extremety ED: Yes edema General Extremity: edema Neuro No oriented x3 and CN's II-XII intact bilaterally Sensorium / Orientation: Negative for alert Psych mental status grossly normal Skin no rashes or lesions noted, no wounds and skin turgor normal General Skin Exam: Negative for jaundice or pallor MDM MDM MDM Narrative Medical decision making narrative: With fever altered mental status suspect patient is septic with encephalopathy. 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 self caths because he is unable to. Based on his allergies he was started on meropenem. Sepsis workup was initiated. He did receive IV fluids. Prior records were reviewed.. Was admitted in March for acute encephalopathy due to UTI. Patient discharge summary authored by Dr. Pompa was reviewed. He was transitioned to the TCU March 27. Dr. Duke's note was reviewed. He was bacteremic according to pharmacy notes. History & Record Review Discussion w/independent historian: Patient and Family Additional record(s) reviewed:: Prior inpatient record (Noted in the MDM portion of the medical record), Prior ED visit (Documented MDM portion of the medical record) and Prior labs Lab Data Attestation: I reviewed the patient's lab results. Lab results narrative: White count slightly elevated 11.7 thousand. There is a slight shift. He is anemic with normal indices. Coags normal. Comprehensive metabolic panel with slight elevation of glucose of 114. Creatinine is elevated 1.21 which is slightly below his most recent but higher than prior. Urine is consistent with infection. Labs: Laboratory Results - last 24 hr 11/13/24 11/13/24 16:50 17:20 WBC 11.7 H RBC 3.85 L Hgb 12.0 L Hct 34.1 L MCV 88.6 MCH 31.2 MCHC 35.2 RDW Std Deviation 44.8 H RDW Coeff of Donna 14.0 Plt Count 145 L MPV 10.5 Immature Gran % (Auto) 0.400 Neut % (Auto) 83.9 H Lymph % (Auto) 5.0 L [place] % (Auto) 9.6 Eos % (Auto) 0.8 Baso % (Auto) 0.3 Absolute Neuts (auto) 9.8 H Absolute Lymphs (auto) 0.58 L Nucleated RBC % 0 PT 17.2 H INR 1.4 APTT 29.0 Sodium 137 Potassium 4.0 Chloride 104 Carbon Dioxide 22.5 Anion Gap 11 BUN 23 H Creatinine 1.21 H Estim Creat Clear Calc 65.62 Est GFR (MDRD) Non-Af 61 BUN/Creatinine Ratio 19.3 Glucose 114 H Lactic Acid 1.7 Calcium 8.8 Phosphorus 1.9 L Magnesium 2.2 Total Bilirubin 0.92 AST 20 ALT 18 Alkaline Phosphatase 58 Total Protein 7.1 Albumin 4.0 Globulin 3.1 Albumin/Globulin Ratio 1.3 Urine Color Yellow Urine Clarity Sl. Cloudy Urine pH 6.0 Ur Specific Harmans 1.010 Urine Protein 30 H Urine Glucose (UA) Normal Urine Ketones Negative Urine Occult Blood 150 H Urine Nitrite Positive H Urine Bilirubin Negative Urine Urobilinogen Normal Ur Leukocyte Esterase 500 H Urine RBC 10-25 SEEN Urine WBC >100 SEEN Ur Squamous Epith Cells 0-5 SEEN Urine Bacteria 1+ Urine Mucus 0 SEEN EKG Initial EKG: Attestation: I personally reviewed and interpreted this EKG as follows: Interpretation: Sinus Rhythm (Rate is 69. There is low voltage. Parable slightly prolonged at 206 ms. This would indicate first-degree AV block. QRS duration 80 ms. QT duration 412 ms. [place] is normal.) Management Discussion w/another healthcare provider: Hospitalist Treatment and Re-Evaluation :: Urine culture blood cultures were obtained prior to initiation of antibiotics. Hospitalist was paged for admission. Discharge Plan Dx/Rx/DC Orders Clinical Impression: Complicated urinary tract infection, Acute encephalopathy, Chronic renal insufficiency, Acute dehydration Disposition Disposition: [facility] Discharge Date/Time: 11/13/24 21:22
--- NOTE | 2024-11-13 19:11 | PCM.HP.STD ---
HPI - General General Date of Admission: 11/13/24 Date of Service: 11/13/24 Chief Complaint: Confusion, fever, chills. HPI Narrative The patient is a 79 y/o M w/ PMHx: CKD stage II per GFR trending, Hx trauma w/ spinal cord injury w/ incomplete quadriplegia, decreased sensation, neurogenic bladder w/ self catheterization following fall while at home however during recent previous admission and TCU stay has Starr catheter in place, Hx CVA w/ chronic memory impairment, PAF, BPH with obstructive pathology with self-catheterization at home, Hx Sick sinus syndrome s/p pacemaker placement, Hx VTE, HTN, HLD, Known anterior communicating artery aneurysm, AAA, Anxiety and Depression, Chronic anemia who presents to the [facility] ED on 11/13/24 with history of onset confusion, altered mental status, chills as well as fevers with worsening altered mental status, fatigue and somnolence prompting patient's son and to bring him to the ED for evaluation noting that patient had onset of symptoms at early this am on day of presentation. Workup in the ED included Tmax upon ED arrival 102.1, heart rate 73, BP 135/54, respiratory rate 18, 94% on room air with most recent repeat vitals T99.7 Noted to be core temp, heart rate 62, BP 133/66, respiratory rate 22, 94% room air, CBC with WC 11.7, hemoglobin 12, MCV 88.6, platelet 145 with left shift and lymphopenia, coags with PT 17.2 otherwise unremarkable, CMP with BUN/Cryan 23/1.21, GFR 61, glucose 114 otherwise hepatic profile not marked appearing, lactic acid 1.7, urinalysis noted be cloudy, protein 30, occult blood 150, positive nitrite, leukocyte esterase 500, urine RBCs 10-25, urine WBCs greater than 100 with squamous epithelial cells appropriate 0-5 with 1+ urine bacteria, urine culture pending per ED, blood culture x 2 pending per ED. From review of records most recent urine culture noted in the system 04/05/2024 with 80-100,000 colony-forming units of Pseudomonas fluorescence noted to be multidrug-resistant organism resistant to Doxy, imipenem, meropenem, and sensitive to Zosyn, and sensitive to amikacin, Levaquin. In the ED patient received 1 L normal saline as well as meropenem 1 g IV x 1. PFSH Medical History Neurogenic bladder MRSA (methicillin resistant staph aureus) culture positive Non-smoker Fever Dehydration Acute hypokalemia Transient hypotension Syncope Vision loss of right eye Acute UTI Anxiety Prostatic hypertrophy TIA (transient ischemic attack) Neurogenic bowel Sick sinus syndrome Neuropathy 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 Depression Hypertension Atrial fibrillation Anterior communicating artery aneurysm Atrial fibrillation History of DVT (deep vein thrombosis) AAA (abdominal aortic aneurysm) without rupture Sick sinus syndrome Family history of hypertension History of spinal cord injury Paraplegia Premature ventricular contractions BPH (benign prostatic hypertrophy) Depression Cervical spinal stenosis Spinal cord injury Neurogenic bladder Degenerative joint disease (DJD) of lumbar spine Anemia Central cord syndrome Subluxation of C6-C7 cervical vertebrae 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.9) Home Medications ?Medication ?Instructions ?Recorded ?Last Taken ?Type ascorbic acid (vitamin C) 500 mg 1,000 mg PO LUNCH supplement 08/17/21 02/11/24 History tablet tamsulosin 0.4 mg capsule 0.4 mg PO QHS Urine retention 30 09/03/21 02/27/24 21:10 Rx days #30 caps 0.4 mg citalopram 20 mg tablet 20 mg PO QHS depression 12/04/21 02/27/24 21:10 History 20 mg cholecalciferol (vitamin D3) 25 25 mcg PO DAILY supplement 02/12/24 Unknown History mcg (1,000 unit) capsule gabapentin 600 mg tablet 600 mg PO BID nerve pain 02/21/24 02/28/24 09:45 History 600 mg acetaminophen 500 mg tablet 1,000 mg (2 x 500 mg) PO Q6H PRN 04/27/24 Unknown Rx PRN Pain Score 1-10 #0 tabs methenamine hippurate 1 gram tablet 1 g PO BID 30 days #60 tabs 04/27/24 Unknown Rx potassium chloride 20 mEq 20 meq PO BIDCM 30 days #60 tabs 04/27/24 Unknown Rx tablet,extended release(part/cryst) carvedilol 12.5 mg tablet 12.5 mg PO BID BP #180 tabs 08/04/24 Unknown Rx triamterene 37.5 1 tab PO QAM 08/08/24 Unknown History mg-hydrochlorothiazide 25 mg tablet apixaban 5 mg tablet (Eliquis) 5 mg PO BID Faxing to [facility] 08/30/24 Unknown Rx [facility] #180 tabs amlodipine 5 mg tablet 5 mg PO QDAY this is a decrease in 09/20/24 Unknown Rx dose #90 tabs Allergy/AdvReac Type Severity Reaction Status Date / Time ceftriaxone Allergy Rash Verified 11/13/24 15:53 ciprofloxacin (From Cipro) Allergy Hives Verified 11/13/24 15:53 sulfamethoxazole (From Allergy PT UNSURE Verified 11/13/24 15:53 Bactrim) OF REACTION trimethoprim (From Bactrim) Allergy PT UNSURE Verified 11/13/24 15:53 OF REACTION Family History Mother Breast cancer Cancer Brain cancer Sister Diabetes Hypertension CHF (congestive heart failure) Kidney disease Sister CHF (congestive heart failure) Cardiac defibrillator in situ Other Family history of hypertension Surgical History History of neck surgery History of permanent cardiac pacemaker placement S/P cervical spinal fusion Social History household members: spouse Smoking Status: Never smoker alcohol intake: current alcohol intake frequency: holidays/special occasions only Alcohol type: wine substance use type: does not use caffeine: Yes Type: coffee Number of servings: 1 what type of physical activity do you participate in: other details: Health point frequency: 1-2 times per week duration: 45-60 minutes/day seatbelt use: always do you feel safe at home: Yes ROS ROS Narrative Admission Review of Systems: CONSTITUTIONAL: No weight loss, + fever, chills, weakness or fatigue. HEENT: + Chronic right eye vision loss. Eyes: No blurred vision, double vision or yellow sclerae. Ears, Nose, Throat: No hearing loss, sneezing, congestion, runny nose or sore throat. SKIN: No rash or itching, lesions, wounds. CARDIOVASCULAR: No chest pain, chest pressure or chest discomfort, palpitations, edema, orthopnea, syncopal events. RESPIRATORY: No shortness of breath, cough or sputum, wheezing, hemoptysis. GASTROINTESTINAL: + anorexia primarily today. No nausea, vomiting or diarrhea, abdominal pain, melena, BRBPR. GENITOURINARY: + Chronic starr in place w/ chronic retention w/ neurogenic bladder, recent + UCx at TCU. NEUROLOGICAL: + Encephalopathy, History trauma with spinal cord injury with incomplete quadriplegia, aphaisa, sensation decreased, neurogenic bladder. No headache, dizziness, syncope, change in bowel or bladder control, seizure. MUSCULOSKELETAL: + muscle, back pain, joint pain or stiffness. HEMATOLOGIC: + Chronic anemia, easy bleeding/bruising. LYMPHATICS: No enlarged nodes. No history of splenectomy. PSYCHIATRIC: + History of anxiety and depression. ENDOCRINOLOGIC: No reports of sweating, cold or heat intolerance. No polyuria or polydipsia. ALLERGIES: + History of hives. Vital Signs Vital Signs Vital Signs: 11/13/24 15:54 11/13/24 15:56 11/13/24 16:15 Temperature 102.1 F H 99.8 F H Temperature Source Oral Oral Pulse Rate 73 76 Respiratory Rate 18 25 H Respiratory Effort Normal Non-Labored Respiratory Pattern Normal Blood Pressure 135/54 H 128/53 H Blood Pressure Mean 81 78 Pulse Ox 94 97 Oxygen Delivery Method Room Air Room Air 11/13/24 16:27 11/13/24 16:55 11/13/24 17:00 Temperature 99.9 F H 99.8 F H Temperature Source Oral Core Pulse Rate 74 73 Respiratory Rate 21 H 21 H Respiratory Effort Respiratory Pattern Blood Pressure 128/64 H 122/58 H Blood Pressure Mean 85 79 Pulse Ox 96 96 Oxygen Delivery Method Room Air Room Air Room Air 11/13/24 18:00 11/13/24 18:54 11/13/24 18:56 Temperature 99.9 F H 99.7 F H 99.7 F H Temperature Source Core Core Pulse Rate 65 63 62 Respiratory Rate 22 H 21 H 22 H Respiratory Effort Respiratory Pattern Blood Pressure 126/64 H 133/66 H 133/66 H Blood Pressure Mean 84 88 88 Pulse Ox 97 92 94 Oxygen Delivery Method Room Air Room Air Weight Weight: 266 lb 12.149 oz Body Mass Index (BMI) 38.2 Physical Exam Narrative Physical Examination: General: Awake, alert, oriented to self, month, year and president currently, does have some difficulty recalling where is specifically and events of the day, patient does have underlying chronic memory impairment from previous stroke, remains cooperative, seated upright in the ED bed, fatigued, flushed and ill appearing. Skin: Flushed color, normal turgor, no icterus, no cyanosis except occasional stage ecchymoses, abrasions. HEENT: AT/NC, EOM left eye intact, chronic right eye vision loss, L BEN, dry MM, no carotid bruits or JVD noted. Lungs: Mildly diminished, greater bases, appropriate effort, no rales, ronchi or wheezing. Heart: Regular rate and rhythm; no gallop, rub audible. Abdomen: Soft, obese, NTTP, no TTP suprapubic region, ND, distant normal BS, unable to appreciate HSM, starr catheter in place, placed in the ED. Extremities: No cyanosis, no clubbing, pedal to mid flor not markedly pitting chronic edema. Neurological: Patient awake, alert, oriented as noted, cognitive function currently improving, more near baseline intact with chronic memory impairment, left pupil reactive to light and accommodation, cranial nerves grossly intact aside from vision deficits to the right, patient does have incomplete quadriplegia, decreased sensation baseline, strength severely globally decreased. Psychiatric: Affect appears fatigued, ill appearing, no acute evidence of depressive or anxiety feelings but does have underlying history. Results Lab / Micro Data 11/13/24 17:20 11/13/24 17:20 Labs: Laboratory Results - last 24 hr 11/13/24 16:50: Urine Color Yellow, Urine Clarity Sl. Cloudy, Urine pH 6.0, Ur Specific [place] 1.010, Urine Protein 30 H, Urine Glucose (UA) Normal, Urine Ketones Negative, Urine Occult Blood 150 H, Urine Nitrite Positive H, Urine Bilirubin Negative, Urine Urobilinogen Normal, Ur Leukocyte Esterase 500 H, Urine RBC 10-25 SEEN, Urine WBC >100 SEEN, Ur Squamous Epith Cells 0-5 SEEN, Urine Bacteria 1+, Urine Mucus 0 SEEN 11/13/24 17:20: WBC 11.7 H, RBC 3.85 L, Hgb 12.0 L, Hct 34.1 L, MCV 88.6, MCH 31.2, MCHC 35.2, RDW Std Deviation 44.8 H, RDW Coeff of Donna 14.0, Plt Count 145 L, MPV 10.5, Immature Gran % (Auto) 0.400, Neut % (Auto) 83.9 H, Lymph % (Auto) 5.0 L, [place] % (Auto) 9.6, Eos % (Auto) 0.8, Baso % (Auto) 0.3, Absolute Neuts (auto) 9.8 H, Absolute Lymphs (auto) 0.58 L, Nucleated RBC % 0, PT 17.2 H, INR 1.4, APTT 29.0, Sodium 137, Potassium 4.0, Chloride 104, Carbon Dioxide 22.5, Anion Gap 11, BUN 23 H, Creatinine 1.21 H, Estim Creat Clear Calc 65.62, Est GFR (MDRD) Non-Af 61, BUN/Creatinine Ratio 19.3, Glucose 114 H, Lactic Acid 1.7, Calcium 8.8, Total Bilirubin 0.92, AST 20, ALT 18, Alkaline Phosphatase 58, Total Protein 7.1, Albumin 4.0, Globulin 3.1, Albumin/Globulin Ratio 1.3 Assessment & Plan Assessment/Plan (1) Complicated urinary tract infection: PLAN: Plan The patient is a 79 y/o M w/ PMHx: CKD stage II per GFR trending, Hx trauma w/ spinal cord injury w/ incomplete quadriplegia, decreased sensation, neurogenic bladder w/ self catheterization following fall while at home however during recent previous admission and TCU stay has Starr catheter in place, Hx CVA w/ chronic memory impairment, PAF, BPH with obstructive pathology with self-catheterization at home, Hx Sick sinus syndrome s/p pacemaker placement, Hx VTE, HTN, HLD, Known anterior communicating artery aneurysm, AAA, Anxiety and Depression, Chronic anemia who presents to the [facility] ED on 11/13/24 with history of onset confusion, altered mental status, chills as well as fevers with worsening altered mental status, fatigue and somnolence prompting patient's son and to bring him to the ED for evaluation noting that patient had onset of symptoms at early this am on day of presentation. #1. Acute Encephalopathy secondary to Acute Complicated Urinary Tract Infection w/ history of multiresistant drug organisms secondary to chronic self-catheterization with neurogenic bladder: Will admit to PCU, UA upon ED evaluation remarkable, pending UCx, continue Starr catheter, continue IVFs, monitor I/Os, initiate and continue IV Zosyn given unfortunate allergy listed to ciprofloxacin thus unable to use Levaquin with noted intermediate sensitivity, infectious disease will be consulted and will plan to administer dose now based on most recent cultures w/ transition as able pending sensitivities and speciation. Bld cx x 2 obtained in the ED. #2. Thrombocytopenia, suspected reactive: Admission platelets 145, baseline normal range however intermittently has been low but primarily during acute presentations, will continue to treat as noted above, trend CBC. #3. Hx trauma w/ spinal cord injury w/ incomplete quadriplegia, decreased sensation, neurogenic bladder w/ self catheterization following fall: Will maintain on fall and aspiration precautions, will continue patient home gabapentin regimen with hold for sedation, will continue Flomax, temporarily place Starr catheter given #1, PT/OT/case management consulted for discharge planning. #4. Hx CVA w/ chronic memory impairment, aphasia, altered sensation: We will continue patient home apixaban, hypertensive regimen with alterations as noted temporarily, not on statin therapy which will be deferred to outpatient. #5. Known anterior communicating artery aneurysm: Most recent noted CTA head and neck 07/22/21 with a 6 mm saccular aneurysm of the medial wall of the proximal A2 segment of the right anterior cerebral artery noted to be stable. #6. AAA: Noted history, unclear exact location, recent MRI of the abdomen with no reported aneurysm, no recent CTA abdomen and pelvis but no noted findings on CT abdomen and pelvis. #7. PAF: We will continue patient home Coreg and apixaban home regimen. #8. Hypertension: Continue home regimen including amlodipine, Coreg with hold parameters as needed, PRN hydralazine. Holding diuretic temporarily. #9. Hyperlipidemia: Per current list does not appear to be on any regimen, no allergy listed, defer to outpatient. #10. Chronic normocytic anemia: Admission hemoglobin 12, MCV 88.6, baseline hemoglobin primarily 9-10 range although vacillates, will continue to trend CBC. #11. Anxiety and depression: We will continue patient home citalopram regimen. #12. History sick sinus syndrome: Status post pacemaker placement, encourage continued outpatient evaluation and interrogation as previously arranged. #13. History of VTE: Patient with documented history of DVT, will continue patient home Eliquis regimen. #14. BPH with obstructive pathology: Complicates presentation as noted above, continue home flomax regimen. #15. Chronic Kidney Disease Stage II per GFR trending: Admission BUN/creatinine 23/1.21, GFR 61, baseline renal function 0.8-1.2, repeat BMP in AM. #16. DVT prophylaxis: Will continue patient home Eliquis regimen. #17. CODE status: Patient YANELI is his who is present and son as well. Discussed CODE status at length including difference between FULL code, DNR-CCA and DNR-CC status. Following discussions about the differences in these status, family requested Full Code status. Advanced Care Planning Face to Face Time: 16 minutes. Charges/Coding Visit Charges Inpatient E&M: 47667 Init Hosp L3 Procedures Hospitalists Procedures: 69287 Advncd Care Plan 30 Min
--- OUTSIDE RECORDS SUMMARY | 2024-11-13 20:40 | XMS RPT_ITS | CCD ---
Author Organization [facility] ion [facility] Care Team Providers Care Certified Caregiver Name Role Phone Criss [place] Unavailable Unavailable [...] Saundra Hernandez Attending Provider Unavailable Ruiz OCHOA, KILN SETTER-C Alessandra Attending Provider MALLORY MCPHERSON DO Primary Care Physician ANNEZACH RIVERA Referring Unavailable MALLORY MCPHERSON Primary Care Unavailable SHANIKA JOSE Admitting Unavailable SHANIKA JOSE Attending Unavailable MALLORY MCPHERSON Primary Care Unavailable COREEN RUSS Admitting Unavailable COREEN RUSS M Attending Unavailable CONSULT, SURGERY - NEURO Consulting Unavail able MALLORY MCPHERSON Primary Care Unavailable LORA LANIER Referring Unavailable Kevin Correia) Unavailable Dr. Mallory Mcpherson Primary Care Provider Dr. Mallory Mcpherson Referring Provider [phone] Ruiz OCHOA, GABRIELA-C Alessandra Attending Provider Dr. Ignacio Quan Attending Provider [phone] YUMIKO MARCUM Attending Unavailable MALLORY MCPHERSON Referring Unavailable Dr. Mallory Mcpherson Primary Care Provider Dr. Mallory Mcpherson Referring Provider [phone] Ruiz OCHOA, GABRIELA-C Alessandra Attending Provider Dr. Iker Ratliff Attending Provider MD Sally Juaquin Emergency Provider Dr. Marc Cantu Attending Provider Unavailable Dr. Marc Cantu Admit Provider Unavailable Dr. Marc Cantu Other Provider Unavailable Dr. Mallory Mcpherson Primary Care Provider Dr. Mallory Mcpherosn Referring Provider [phone] Dr. Mallory Mcpherson Primary Care Provider Dr. Mallory Mcpherson Referring Provider [phone] Ruiz OCHOA, GABRIELA-C Alessandra Attending Provider Dr. Mallory Mcpherson Primary Care Provider Dr. Iker Ratliff Attending Provider Dr. Mallory Mcpherson Referring Provider [phone] KILN SETTER, KILN SETTER-C Alessandra Attending Provider [place] DO, MALLORY Attending Unavailable [place] DO, MALLORY Primary Care Unavailable [facility] LIAISON-INDUCTION MACHINE SETTER, KIRBY Deal Attending Enoc lable [place] DO, MALLORY Primary Care Unavailable KY DO, MALLORY Attending Unavailable KY DO, MALLORY Primary Care Unavailable KY DO, MALLORY Attending Unavailable [place] DO, MALLORY Primary Care Unavailable KY DO, MALLORY Primary Care Unavailable [place] DO, MALLORY Attending Unavailable [place] DO, MALLORY Primary Care Unavailable [facility] LIAISON-INDUCTION MACHINE SETTER, SOMMER Attending Enoc Mcpherson DO, Dr. Griffiths Primary Care Provider [phone] Sami PITTS, Dr. Luis Carlos Tapia Admit Provider Sami PITTS, Dr. Luis Carlos Tapia Attending Provider Dr. Mallory Stuart MD Other Provider [phone] Glenda PITTS, Dr. Caesar Busch Other Provider Sami PITTS, Dr. Luis Carlos Tapia Referring Provider Dr. Mallory Mcpherson DO Referring Provider Ruiz KILN SETTER-C, Alessandra Attending Provider [phone] Lorena PEREZ, [...] PITTS, Dr. Luis Carlos Tapia Referring Provider [phone] Ky PEREZ, Dr. Griffiths Primary Care Provider [phone] Sami PITTS, Dr. Luis Carlos Tapia Attending Provider Sami PITTS, Dr. Luis Carlos Tapia Referring Provider Dr. Miguel Carrillo DO Attending Provider [phone] Ky PEREZ, Dr. Griffiths Primary Care Provider [phone] Sami PITTS, Dr. Luis Carlos Tapia Attending Provider Sami PITTS, Dr. Luis Carlos Tapia Referring Provider Chris Cavazos Attending Unavailable White, Sindi L Consulting Unavailable White, Sindi L Admitting Unavailable Ky Mallory Primary Care Unavailable Sade, Mallory Consulting Unavailable Jannette Cavazoss F Consulting Unavailable Chris Cavazos Attending Unavailable White, Sindi L Consulting Unavailable White, Sindi L Admitting Unavailable Mallory Mcpherson Primary Care Unavailable Sade, Mallory Consulting Unavailable Mikhail Cavazosolas F Consulting Unavailable White, Sindi L Admitting Unavailable Sade, Mallory Consulting Unavailable Ky Mallory Primary Care Unavailable Justen Pompa Attending Unavailable White, Sindi L Consulting Unavailable Marc Cantu Consulting Unavailable Justen Pompa Consulting Unavailable Koram, Sanjuanita Josette Consulting Unavailable TavaresamYomairaa Josette Attending Unavailable Sachi, Sanjuanita Josette Admitting Unavailable Mallory Mcpherson Primary Care Unavailable Ky Mallory Referring Unavailable Alessandra Melchor NP Attending Unavailable Lorena, Miguel Primary Care Unavailable Gaudencio Iker Attending Unavailable Lorena, Miguel Primary Care Unavailable GaudencioKarelAtglen Attending Unavailable Lorena, Miguel Primary Care Unavailable Ky Mallory Primary Care Unavailable Provider, Ed Physician Attending Unavailab Marc Mccoy Attending Unavailable Aakash Quinones Attending Unavailabl Mallory Vyas Primary Care Unavailable Ahmet Casas Attending Unavailable Ahmet Casas Referring Unavailable Mallory Mcpherson Primary Care Unavailable Sami, Luis Carlos Chi Admitting Unavailable Luis Carlos Gallardo Chi Consulting Unavailable White Sindi L Attending Unavailable Mallory Mcpherson Primary Care Unavailable White, Sindi L Consulting Unavailable White, Sindi L Attending Unavailable White, Sindi L Admitting Unavailable Ky, Mallory Primary Care Unavailable Rhett Palma Attending Unavailable Rhett Palma Consulting Unavailable Rhett Palma Attending Unavailable Koram, Sanjuanita Josette Consulting Unavailable Koram, Sanjuanita Josette Admitting Unavailable Ky, Mallory Primary Care Unavailable Gaudencio, Iker Attending Unavailable Lorena, Miguel Primary Care Unavailable Gaudencio, Iker Attending Unavailable Lorena, Miguel Referring Unavailable Lorena, Miguel Primary Care Unavailable Ky, Mallory Primary Care Unavailable Ky, Mallory Referring Unavailable Gaudencio, Iker Attending Unavailable Sami, Luis Carlos Chi Attending Unavailable Sami, Luis Carlos Chi Admitting Unavailable Sade, Mallory Consulting Unavailable Ky, Mallory Primary Care Unavailable Caesar Doshi Consulting Unavailable Sami, Luis Carlos Chi Attending Unavailable Sami, Luis Carlos Chi Admitting Unavailable Ky, Mallory Primary Care Unavailable Sade, Mallory Consulting Unavailable White, Sindi L Admitting Unavailable Ky, Mallory Primary Care Unavailable Justen Pompa Attending Unavailable Sade, Mallory Consulting Unavailable White, Sindi L Consulting Unavailable Marc Cantu Consulting Unavailable Rhett Palma Attending Unavailable WhiteSindi Admitting Unavailable WhiteSindi Consulting Unavailable Ky, Mallory Primary Care Unavailable Sade, Mallory Consulting Unavailable Chris Cavazos Consulting Unavailable Koram, Sanjuanita Josette Consulting Unavailable Koram, Sanjuanita Josette Admitting Unavailable Ky, Mallory Primary Care Unavailable Pari, Yovany Attending Unavailable Sade, Mallory Consulting Unavailable Sumanth Aguilar Attending Unavailable Lorena, Miguel Primary Care Unavailable Jesse Yee Attending Unavailable Ky, Mallory Primary Care Unavailable White Sindi L Attending Unavailable Yovany Yañez Attending Unavailable Sade, Mallory Consulting Unavailable Termarissaky, Yovany Consulting Unavailable Sami, Luis Carlos Chi Referring Unavailable Sami, Luis Carlos Chi Attending Unavailable Ky, Mallory Primary Care Unavailable Sami, Luis Carlos Chi Attending Unavailable Sami, Luis Carlos Chi Referring Unavailable Ky, Mallory Primary Care Unavailable Lorena, Miguel Primary Care Unavailable Lorena, Miguel Referring Unavailable Lorena, Miguel Attending Unavailable Sami, Luis Carlos Chi Referring Unavailable Sami, Luis Carlos Chi Attending Unavailable Ky, Mallory Primary Care Unavailable Sami, Luis Carlos Chi Referring Unavailable Sami, Luis Carlos Chi Attending Unavailable Ky, Mallory Primary Care Unavailable White Sindi L Attending Unavailable Lorena, Miguel Primary Care Unavailable Allergies Allergy Classification Reported Allergen(s) Allergy Type Date of Onset Reaction(s) Facility (20 sources) Ciprofloxacin; Translations: [ciprofloxacin] Drug Allergy 07-13-19 Weal (disorder), Hives [facility] (20 sources) Sulfamethoxazole Drug Allergy 07-13-19 22 PT UNSURE OF REACTION [facility] (20 sources) Trimethoprim Drug Allergy 07-13-19 PT UNSURE OF REACTION [facility] (9 sources) Sulfamethoxazole / Trimethoprim; Translations: [Sulfamethoxazole / Trimethoprim] Drug Allergy 07-16-19 Eruption of skin (disorder), Antimicrobial susceptibility test (procedure) [facility] (20 sources) cefTRIAXone; Translations: [ceftriaxone] Drug Allergy 09-09-19 Eruption of skin (disorder) [facility] (1 source) cefTRIAXone Drug Allergy 11-14-19 [facility] (1 source) Ciprofloxacin Drug Allergy 11-14-19 [facility] (1 source) Sulfamethoxazole Drug Allergy 11-14-19 [facility] (1 source) Trimethoprim Drug Allergy 11-14-19 [facility] Medications Current Medications Medication Drug [...] tab(s), 0 Refill(s), 01/03/22 13:59:00 EDT, Pharmacy: [facility], 175.3, cm, 10/02/21 14:21:00 EDT, Height, 106 Start Date: 12/24/21 Stop Date: 01/03/22 Status: Ordered Amhdu-Roxg-Toif t-Shztoz-Pc-Min (Celestino (With Collagen)) 7-7-1.5 gram Powder In Packet (18 sources) Start: 08-15-2021 Jcswo-Cvqx-Ftmyk-Collag-Mv -Min (Celestino (With Collagen)) 7-7-1.5 gram Powder In Packet Active 1 PACKET PO TWICE DAILY WITH MEALS 0 August 15, 2021 2:50pm Start: 08-15-2021 End: 08-17-2021 Dfnhh-Lwqy-Hzevm-Collag-Mv-M in (Celestino (With Collagen)) 7-7-1.5 gram Powder In Packet Discontinued 1 NMA PO TWICE DAILY WITH MEALS 0 August 15, 2021 12:00am August 17, 2021 4:32pm Start: 08-15-2021 End: 08-17-2021 Jxxuv-Fekm-Mncez-Collag-Mv-M in (Celestino (With Collagen)) 7-7-1.5 gram Powder In Packet Discontinued 1 NMA PO TWICE DAILY WITH MEALS 0 August 15, 2021 12:00am August 17, 2021 4:32pm Start: 08-15-2021 End: 08-17-2021 Lvizf-Rmyh-Dcwhw-Collag-Mv-M in (Celestino (With Collagen)) 7-7-1.5 gram Powder In Packet Discontinued 1 PACKET PO TWICE DAILY WITH MEALS 0 August 14, 2021 11:00pm August 17, 2021 3:32pm Start: 08-15-2021 End: 08-17-2021 Irqpx-Emfn-Yfxdx-Collag-Mv-M in (Celestino (With Collagen)) 7-7-1.5 gram Powder [...] qDay, # 100 cap(s), 3 Refill(s), Pharmacy: [facility], 175, cm, 10/11/23 16:35:00 EDT, Height, kg, 10/11/23 16:35:00 EDT, Dosing Weight Start Date: 10/11/23 Stop Date: 11/14/24 Status: Ordered Start: 01-06-2023 citalopram 30 mg oral capsule Dose : 30 mg = 1 cap(s), Oral, qDay, # 90 cap(s), 3 Refill(s), Pharmacy: [facility], 175.5, cm, 01/06/23 14:10:00 EDT, Height, [...] qDay, # 90 cap(s), 3 Refill(s), Pharmacy: [facility], 175.3, cm, 10/02/21 14:21:00 EDT, Height [...] 0 Refill(s), 12/05/23 3:25:00 PM EDT, Pharmacy: [facility], Cellulitis of right lower leg, 170, [...] Active Food Supplemt, Lactose-Reduced (11 sources) Start: 07-18-2021 take 1 mL by [...] BID, # 180 tab(s), 0 Refill(s), Pharmacy: [facility], Neuropathy, 177, cm, 07/07/23 13:05:00 EDT, Height, 111.4, kg, 07/07/23 13:05:00 EDT, Dosing Weight Start Date: 07/07/23 Stop Date: 10/05/23 Status: Ordered Start: 03-24-2023 End: 06-22-2023 gabapentin 600 mg oral table t Dose : 600 mg = 1 tab(s), Oral, BID, # 180 tab(s), 0 Refill(s), Pharmacy: [facility], Neuropathy, 175.5, cm, 01/06/23 14:10:00 EDT, Height, 123.7, kg, 01/06/23 14:10:00 EDT, Dosing Weight Start Date: 03/24/23 Stop Date: 06/22/23 Status: Ordered Start: 06-16-2022 End: 09-14-2022 gabapentin 600 mg oral table t Dose : 600 mg = 1 tab(s), Oral, TID, # 270 tab(s), 0 Refill(s), Pharmacy: [facility], Neuropathy, 175.5, cm, 01/08/22 14:03:00 EDT, [...] TID, # 270 tab(s), 0 Refill(s), Pharmacy: [facility], Neuropathy, 175.3, cm, 10/02/21 14:21:00 EDT, [...] Start: 04-04-2015 take 2 tablets by mo [facility] twice daily GABAPENTIN 100 MG CAPS Two tablets by mouth twice daily GABAPENTIN [id number] Ignacio Quan MD herbal/nutritional product (4 sources) [...] 04-04-2015 take 1 tablet by augie th twice daily LISINOPRIL 5 MG TABS One tablet by mouth twice daily LISINOPRIL [id number] Ignacio Quan MD Start: 04-02-2015 End: 07-18-2021 take 1 tablet by mouth once daily LISINOPRIL 5 MG TABS One tablet by mouth daily LISINOPRIL [id number] Zach Del Rosario RN Magnesium Hydroxide (1 [...] 2021 8:49pm Start: 04-04-2015 End: 05-15-2015 NYSTATIN [id number] UNIT/GM POWD apply 3 times daily NYSTATIN [id number] Zach Del Rosario RN Start: 04-04-2015 End: 05-15-2015 NYSTATIN 312542 UNIT/GM POWD apply 3 times daily NYSTATIN [id number] Zach Del Rosario RN Start: 04-02-2015 End: 07-22-2021 nystatin [id number] UNIT/GM Powd er 1 Application by Topical [...] One tablet by mouth daily POTASSIUM CHLORIDE [id number] Blaire Santiago RN take 1 tablet by [...] every 4 hours as needed HYDROCODONE-ACETAMI NOPHEN [id number] Blaire Santiago RN Start: 04-04-2015 take 1 tablet by augie th every four hours as needed NORCO 5-325 MG TABS 1 tablet by mouth ev melecio 4 hours as needed HYDROCODONE-ACETAMINOPHEN [id number] Araseli Genao RN Start: 04-04-2015 End: 04-30-2016 take 1 tablet by mouth every four hours as needed NORCO 5-325 MG TABS 1 tablet by mouth ev melecio 4 hours as needed HYDROCODONE-ACETAMINOPHEN [id number] Blaire Santiago RN apixaban 5 mg oral [...] 17, 2021 5:39pm March 17, 2021 5:50pm Uhjtr-Cnoz-Lezax-Collag-Mv-M in (Celestino (With Collagen)) 7-7-1.5 gram powder in packet (17 sources) Start: 08-17-2021 End: 09-03-2021 Wbgwh-Nfvk-Dewny-Collag-Mv-M in (Celestino (With Collagen)) 7-7-1.5 gram powder in packet Discontinued 1 NMA PO TWICE DAILY WITH MEALS August 17, 2021 4:32pm September 03, 2021 8:46pm supplement Start: 08-17-2021 End: 09-03-2021 Pzrel-Anlp-Ypbnr-Collag-Mv-M in (Celestino (With Collagen)) 7-7-1.5 gram powder in packet Discontinued 1 NMA PO TWICE DAILY WITH MEALS August 17, 2021 4:32pm September 03, 2021 8:46pm Start: 08-17-2021 End: 09-03-2021 Dpqbe-Blrv-Bcjlp-Collag-Mv-M in (Celestino (With Collagen)) 7-7-1.5 gram powder in packet Discontinued 1 PACKET PO TWICE DAILY WITH MEALS August 17, 2021 3:32pm September 03, 2021 7:46pm Start: 08-17-2021 End: 09-03-2021 Hqfjx-Mrlo-Sghmx-Collag-Mv-M in (Celestino (With Collagen)) 7-7-1.5 gram powder [...] 04, 2021 11:18am December 04, 2021 1:01pm [facility] . Start: 10-02-2021 aspirin 81 mg oral [...] 18, 2021 12:00am December 04, 2021 11:22am [facility] . atenolol 25 mg oral tablet (20 sources) beta-Adrenergic Tomás Start: 07-27-2014 End: 02-27-2015 take 0.5 tablet by mouth once daily ATENOLOL 25 MG TABS One-half tablet by mouth daily ATENOLOL [id number] Blaire Rafa Jack RN Start: 07-10-2014 End: 07-12-2014 take 1 tablet by mouth once daily ATENOLOL 50 MG TABS One half tablet by mouth daily ATENOLOL [id number] Zach Alston Carin RN Start: 06-08-2014 End: 06-09-2014 take 1 tablet [...] mouth four times daily as needed DIAZEPAM [id number] Araseli Genao RN docusate sodium 56.6 mg/ml enema (7 sources) Start: 02-13-2024 End: 08-08-2024 Docusate Sodium (Enemeez) 283 mg/5 mL enema Discontinued 283 mg RC TWICE A DAY February 13, 2024 1:00am August 08, 2024 2:29pm constipation docusate sodium 50 mg / sennosides, retirement 8.6 mg oral tablet (20 sources) Start: [...] SOLN 40 mg subq daily ENOXAPARIN SODIUM [id number] Ignacio Quan MD Enoxaparin Sodium (LOVENOX) injection 40 mg (2 sources) Start: 07-24-2021 End: 07-25-2021 Enoxaparin Sodium (LOVENOX) injection 40 mg Start: 07-13-2021 End: 07-18-2021 Enoxaparin Sodium (LOVENOX) injection 40 mg ferrous gluconate 324 mg oral tablet (9 sources) Start: 04-04-2015 End: 08-21-2015 take 1 tablet by mouth twice daily FERROUS GLUCONATE 324 MG TABS One tablet by mouth twice daily FERROUS GLUCONATE [id number] Lulu Moreno PA-C Start: 04-04-2015 [facility] FERROUS GLUCONATE 324 MG TABS One tablet by mouth three times daily FERROUS GLUCONATE [id number] Zach Del Rosario RN finasteride 5 mg [...] TABS One tablet by mouth daily LISINOPRIL-HYDROCHLOROTHIAZIDE [id number] Zach Del Rosario RN hydrocortisone 0.025 mg/mg topical ointment (1 [...] labetalol (NORMODYNE) injection 10 mg lactobacillus acidophilus [id number] unt / pectin 100 mg oral tablet (20 sources) Start: 08-15-2021 End: 12-04-2021 take 1 tablet by mouth once daily Acidophilus-Pect in, [place] 25 million cell -100 mg tablet Discontinued 1 {tbl} PO DAILY August 17, 2021 4:32pm December 04, 2021 11:18am Supplement LORazepam 0.5 mg oral tablet (6 sources) Benzodiazepine Start: 02-27-2015 End: 04-04-2015 LORAZEPAM 0.5 MG TABS as needed LORAZEPAM [id number] Zach Del Rosario RN losartan potassium 100 [...] TABS One tablet by mouth daily MELOXICAM [id number] Blaire Santiago RN Menthol / Zinc Oxide [...] qDay, # 100 tab(s), 3 Refill(s), Pharmacy: [facility], 177, cm, 07/07/23 13:05:00 EDT, Height, [...] qDay, # 90 tab(s), 3 Refill(s), Pharmacy: [facility], 175.5, cm, 07/08/22 15:40:00 EDT, Height, [...] qDay, # 45 tab(s), 3 Refill(s), Pharmacy: [facility], 175.3, cm, 04/16/21 9:09:00 EST, Height, kg, 04/16/21 9:09:00 EST, Dosing Weight Start Date: 04/16/21 Status: Ordered Start: 04-02-2020 NIFEdipine 30 mg oral tablet, extended release Dose : 15 mg = 0.5 tab(s), Oral, qDay, # 45 tab(s), 3 Refill(s), Pharmacy: [facility], 175.3, cm, 12/14/19 14:15:00 EDT, Height, [...] th once daily PROCARDIA XL 30 MG [id number] One tablet by mouth daily NIFEDIPINE [id number] Ignacio Quan MD Start: 05-06-2015 take 1 tablet by augie th once daily PROCARDIA XL 60 MG [id number] One half tablet by mouth daily NIFEDIPINE [id number] Steffi Wing RN Start: 05-06-2015 PROCARDIA XL 6 0 MG [id number] One half tablet by mouth daily NIFEDIPINE [id number] Steffi Wing RN Start: 07-10-2014 End: 02-27-2015 take 0.5 tablet by mouth once daily NIFEDIPINE ER 60 MG [id number] One-half tablet by mouth daily NIFEDIPINE [id number] Blaire Santiago RN nitrofurantoin, macrocrystals 100 mg [...] 0 Refill(s), 10/05/23 2:11:00 PM EDT, Pharmacy: [facility], UTI (urinary tract infection), 171, cm, 07/08/23 16:22:00 EDT, Height, 111.4, kg, 07/08/23 16:22:00 EDT, Dosing Weight Start Date: 09/28/23 Stop Date: 10/05/23 Status: Ordered Start: 03-24-2023 End: 03-31-2023 nitrofurantoin macrocrystals -monohydrate 100 mg oral capsule Dose : 100 mg = 1 cap(s), Oral, BID, Take with food, X 7 day(s), # 14 cap(s), 0 Refill(s), 03/31/23 3:25:00 PM EST, Pharmacy: [facility], UTI (urinary tract infection), bacterial, 175.5, [...] by mouth four times daily NUTRITIONAL SUPPLEMENTS [id number] Zach Del Rosario RN Start: 04-04-2015 End: 04-12-2015 ENSURE ACTIVE LIQD One can b y mouth four times daily NUTRITIONAL SUPPLEMENTS [id number] Araseli Genao RN NUTRITIONAL SUPPLEMENTS (4 sources) Start: 04-04-2015 ENSURE ACTIVE LIQD One can by mouth four times daily NUTRITIONAL SUPPLEMENTS [id number] Zach Del Rosario RN Start: 04-04-2015 End: 04-12-2015 ENSURE ACTIVE LIQD One can b y mouth four times daily NUTRITIONAL SUPPLEMENTS 74281791795 Araseli Genao RN Nutritional Supplements (ENSURE COMPLETE PO) (2 sources) Nutritional Supp lements (ENSURE COMPLETE PO) take 1 Can by mouth 4 times daily. 0 Active nystatin [id number] unt/ml / triamcinolone acetonide 1 mg/ml topical [...] and beneath the foreskin Perflutren Lipid Microsphere (DEFINFast Society) 1.5 mL in Normal Saline Flush 0.9% [...] 2024 8:46pm bacteremia/UTI Start: 10-04-2023 End: 02-12-2024 Ipyrgiqfyavg-Rbobancrdk-Ukzb rs (Zosyn In Dextrose (Iso-Osm)) 3.375 gram/50 mL piggyback Discontinued 3.375 g IV Q8H 5 0 October 04, 2023 12:00am February 12, 2024 3:54pm stop date 10/09/23. Dx: pseudomonas infection polyethylene glycol (MIRALAX) packet 17 g (1 source) Start: 07-12-2021 End: 07-18-2021 polyethylene glycol (MIRALAX) packet 17 g polyethylene glycol 3350 81795 mg powder for oral solution (1 source) [...] One tablet by mouth daily SENNOSIDES CAPS [id number] Blaire Santiago RN Start: 04-04-2015 take 1 tablet by augie th once daily SENNA CAPS One tablet by mouth daily SENNOSIDES CAPS [id number] Zach Del Rosario RN Start: 02-27-2015 take 1 tablet by augie th twice daily SENNA 8.6 MG TABS One tablet by mouth twice daily SENNOSIDES 71568404483 Blaire Santiago RN Start: 02-27-2015 End: 04-04-2015 take 1 tablet by mouth twice daily SENNA 8.6 MG TABS One tablet by mouth twice daily SENNOSIDES 51577786990 Zach Del Rosario RN SENNOSIDES CAPS (4 sources) Start: 04-04-2015 End: 04-30-2016 take 1 tablet by mouth once daily SENNA CAPS One tablet by mouth daily SENNOSIDES CAPS 79956181334 Blaire Santiago RN Start: 04-04-2015 take 1 tablet by augie th once daily SENNA CAPS One tablet by mouth daily SENNOSIDES CAPS [id number] Zach Del Rosario RN sennosides, retirement 8.6 mg oral tablet (20 sources) Start: [...] One tablet by mouth twice daily SENNOSIDES 18052322684 Blaire Santiago RN take 2 tablets by mo [facility] once daily senna 8.6 MG tablet Take 17.2 mg by mouth daily. 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 Improved significantly since admission. Written language better than spoken language. Other nervous system disorders (20 sources) Aphasia; Translations: [Aphasia] Chronic Other nervous system disorders (9 sources) Disorder of brain; Translations: [Encephalopathy, unspecified] 05-09-2024 Chronic Other nervous system disorders (1 source) Encephalopathy, unspecified; Translations: [Encephalopathy, unspecified] Onset: 04-05-2024 Chronic Other nervous system disorders (20 sources) Dysarthria; Translations: [Dysarthria and anarthria] 05-06-2022 Episodic Other nervous system disorders (14 sources) [...] (2 sources) Follow-up after DC from [facility]CU Urinary tract infections (20 sources) Urinary tract infectious disease; Translations: [Urinary tract infection, site not specified] Onset: 02-28-2015 03-20-2016 Episodic Comment on above: Klebsiella oxytoca-E SBL Viral infection (11 sources) Viral disease; Translations: [...] (2 sources) Onset: 07-17-2021 Resolved: 07-25-2021 07-17-2021 Results Test Name Value Interpretation Reference Range Facility CBC W/Diff, Automatedon 09-0 Absolute Lymph 0.58 X10 3/uL Low 0.83-4.51 [facility] Comment on above: Performed By: #### L 100.0100, L503.6005, L500.4050, L300.3900, L300.4310 ####[facility] [id number] [place], [address] Absolute Neut 9.8 X10 3/uL High 2.0-7.7 [facility] Comment on above: Performed By: #### L 100.0100, L503.6005, L500.4050, L300.3900, L300.4310 ####[facility] [address] [place], [address] Basophils/100 WBC (Bld) 0.3 % Normal 0-1 [facility] Comment on above: Performed By: #### L 100.0100, L503.6005, L500.4050, L300.3900, L300.4310 ####[facility] [address] [place], [address] Eosinophils/100 WBC (Bld) 0.8 % Normal 0-5 [facility] Comment on above: Performed By: #### L 100.0100, L503.6005, L500.4050, L300.3900, L300.4310 ####[facility] [address] [place], [address] Erythrocyte distribution width (RBC) [Ratio] 14.0 % Normal 11.6-14.6 [facility] Comment on above: Performed By: #### L 100.0100, L503.6005, L500.4050, L300.3900, L300.4310 ####[facility] [address] [place], [address] Hematocrit (Bld) [Volume fraction] 34.1 % Low 40-54 [facility] Comment on above: Performed By: #### L 100.0100, L503.6005, L500.4050, L300.3900, L300.4310 ####[facility] [address] [place], [address] Hemoglobin (Bld) [Mass/Vol] 12.0 g/dL Low 13.0-16.5 [facility] Comment on above: Performed By: #### L 100.0100, L503.6005, L500.4050, L300.3900, L300.4310 ####[facility] [address] [place], [address] IG% 0.400 Normal 0.0-0.9 [facility] Comment on above: Result Comment: IG% - Immature Granulocytes (promyelocytes, myelocytes andmetamyelocytes) > 1% indicates that a LEFT SHIFT is Present. Performed By: #### L 100.0100, L503.6005, L500.4050, L300.3900, L300.4310 ####[facility] [address] [place], [address] Lymphocytes/100 WBC (Bld) 5.0 % Low 19-41 [facility] Comment on above: Performed By: #### L 100.0100, L503.6005, L500.4050, L300.3900, L300.4310 ####[facility] [address] [place], [address] MCH (RBC) [Entitic mass] 31.2 pg Normal 27.0-32.0 [facility] Comment on above: Performed By: #### L 100.0100, L503.6005, L500.4050, L300.3900, L300.4310 ####[facility] [address] [place], [address] MCHC (RBC) [Mass/Vol] 35.2 g/dL Normal 32-36 [facility] Comment on above: Performed By: #### L 100.0100, L503.6005, L500.4050, L300.3900, L300.4310 ####[facility] [address] [place], [address] MCV (RBC) [Entitic vol] 88.6 fL Normal 80-94 [facility] Comment on above: Performed By: #### L 100.0100, L503.6005, L500.4050, L300.3900, L300.4310 ####[facility] [address] [place], [address] Monocytes/100 WBC (Bld) 9.6 % Normal 0-10 [facility] Comment on above: Performed By: #### L 100.0100, L503.6005, L500.4050, L300.3900, L300.4310 ####[facility] [address] [place], [address] Neutrophils/100 WBC (Bld) 83.9 % High 47-70 [facility] Comment on above: Performed By: #### L 100.0100, L503.6005, L500.4050, L300.3900, L300.4310 ####[facility] [address] [place], [address] Nucleated RBC (Bld) [#/Vol] 0 10*3/uL Normal 0-5 [facility] Comment on above: Performed By: #### L 100.0100, L503.6005, L500.4050, L300.3900, L300.4310 ####[facility] [address] [place], [address] Platelet mean volume (Bld) [Entitic vol] 10.5 fL Normal 6.2-12.0 [facility] Comment on above: Performed By: #### L 100.0100, L503.6005, L500.4050, L300.3900, L300.4310 ####[facility] [address] [place], [address] Platelets (Bld) [#/Vol] 145 10*3/uL Low 150-450 [facility] Comment on above: Performed By: #### L 100.0100, L503.6005, L500.4050, L300.3900, L300.4310 ####[facility] [address] [place], [address] RBC (Bld) [#/Vol] 3.85 10*6/uL Low 4.6-6.2 [facility] Comment on above: Performed By: #### L 100.0100, L503.6005, L500.4050, L300.3900, L300.4310 ####[facility] [address] [place], [address] RDW SD 44.8 fl High 35.1-43.9 [facility] Comment on above: Performed By: #### L 100.0100, L503.6005, L500.4050, L300.3900, L300.4310 ####[facility] [address] [place], [address] WBC (Bld) [#/Vol] 11.7 10*3/uL High 4.4-11.0 [facility] Comment on above: Performed By: #### L 100.0100, L503.6005, L500.4050, L300.3900, L300.4310 ####[facility] [address] [place], [address] Comprehensive Metabolic Prof ilon 11-13-2024 Albumin [Mass/Vol] 4.0 g/dL Normal 3.4-4.8 [facility] Comment on above: Performed By: #### L 100.0100, L503.6005, L500.4050, L300.3900, L300.4310 ####[facility] [address] [place], [address] Albumin/Globulin [Mass ratio] 1.3 {ratio} Normal 0.9-2.4 [facility] Comment on above: Performed By: #### L 100.0100, L503.6005, L500.4050, L300.3900, L300.4310 ####[facility] [address] [place], [address] ALK PHOS 58 U/L Normal 40-129 [facility] Comment on above: Performed By: #### L 100.0100, L503.6005, L500.4050, L300.3900, L300.4310 ####[facility] [address] [place], [address] ALT [Catalytic activity/Vol] 18 U/L Normal <=46 [facility] Comment on above: Performed By: #### L 100.0100, L503.6005, L500.4050, L300.3900, L300.4310 ####[facility] [address] [place], [address] AST [Catalytic activity/Vol] 20 U/L Normal <=37 [facility] Comment on above: Performed By: #### L 100.0100, L503.6005, L500.4050, L300.3900, L300.4310 ####[facility] [address] [place], [address] Bilirubin [Mass/Vol] 0.92 mg/dL Normal 0.00-1.30 [facility] Comment on above: Performed By: #### L 100.0100, L503.6005, L500.4050, L300.3900, L300.4310 ####[facility] [address] [place], [address] BUN/CRE 19.3 RATIO Normal 10-20 [facility] Comment on above: Performed By: #### L 100.0100, L503.6005, L500.4050, L300.3900, L300.4310 ####[facility] [address] [place], [address] Calcium [Mass/Vol] 8.8 mg/dL Normal 7.6-11.0 [facility] Comment on above: Performed By: #### L 100.0100, L503.6005, L500.4050, L300.3900, L300.4310 ####[facility] [address] [place], [address] Chloride [Moles/Vol] 104 mmol/L Normal 98-108 [facility] Comment on above: Performed By: #### L 100.0100, L503.6005, L500.4050, L300.3900, L300.4310 ####[facility] [address] [place], [address] CO2 [Moles/Vol] 22.5 mmol/L Normal 21.0-32.0 [facility] Comment on above: Performed By: #### L 100.0100, L503.6005, L500.4050, L300.3900, L300.4310 ####[facility] [address] [place], [address] Creatinine [Mass/Vol] 1.21 mg/dL High 0.70-1.20 [facility] Comment on above: Performed By: #### L 100.0100, L503.6005, L500.4050, L300.3900, L300.4310 ####[facility] [address] [place], [address] ECRCL 65.62 ml/min Normal 50-250 [facility] Comment on above: Performed By: #### L 100.0100, L503.6005, L500.4050, L300.3900, L300.4310 ####[facility] [address] [place], [address] GAP 11 Normal 5-15 [facility] Comment on above: Performed By: #### L 100.0100, L503.6005, L500.4050, L300.3900, L300.4310 ####[facility] [address] [place], [address] GFR/1.73 sq M.predicted among non-blacks MDRD (S/P/Bld) [Vol rate/Area] 61 mL/min/{1.73_m2} Normal >60 [facility] Comment on above: Result Comment: mL/m in/1.73m2 CKD-EPI Creatinine Equation (2020) Performed By: #### L 100.0100, L503.6005, L500.4050, L300.3900, L300.4310 ####[facility] [address] [place], [address] Globulin (S) [Mass/Vol] 3.1 g/dL Normal 2.2-4.2 [facility] Comment on above: Performed By: #### L 100.0100, L503.6005, L500.4050, L300.3900, L300.4310 ####[facility] [address] [place], [address] Glucose [Mass/Vol] 114 mg/dL High 70-99 [facility] Comment on above: Performed By: #### L 100.0100, L503.6005, L500.4050, L300.3900, L300.4310 ####[facility] [address] [place], [address] Potassium [Moles/Vol] 4.0 mmol/L Normal 3.3-5.1 [facility] Comment on above: Performed By: #### L 100.0100, L503.6005, L500.4050, L300.3900, L300.4310 ####[facility] [address] [place], [address] Sodium [Moles/Vol] 137 mmol/L Normal 133-145 [facility] Comment on above: Performed By: #### L 100.0100, L503.6005, L500.4050, L300.3900, L300.4310 ####[facility] [address] [place], [address] T PROT 7.1 g/dL Normal 5.9-8.4 [facility] Comment on above: Performed By: #### L 100.0100, L503.6005, L500.4050, L300.3900, L300.4310 ####[facility] [address] [place], [address] Urea nitrogen [Mass/Vol] 23 mg/dL High 4-19 [facility] Comment on above: Performed By: #### L 100.0100, L503.6005, L500.4050, L300.3900, L300.4310 ####[facility] [address] [place], [address] H AND P Exam - Hospitaliston 11-13-2024 H&P Exam - Hospitalist Normal [facility] Lactic Acidon 11-13-2024 Lactate [Moles/Vol] 1.7 mmol/L Normal 0.0-2.0 [facility] Comment on above: Order Comment: Y Performed By: #### L 100.0100, L503.6005, L500.4050, L300.3900, L300.4310 ####[facility] [address] [place], [address] Partial Thromboplast Timeon 11-13-2024 aPTT Coag (Bld) [Time] 29.0 s Normal 24.1-36.2 [facility] Comment on above: Performed By: #### L 100.0100, L503.6005, L500.4050, L300.3900, L300.4310 ####[facility] [address] [place], [address] Prothrombin Time w/INRon INR Coag (PPP) [Relative time] 1.4 {INR} Normal [facility] Comment on above: Performed By: #### L 100.0100, L503.6005, L500.4050, L300.3900, L300.4310 ####[facility] [address] [place], [address] PT Coag (PPP) [Time] 17.2 s High 11.7-14.9 [facility] Comment on above: Performed By: #### L 100.0100, L503.6005, L500.4050, L300.3900, L300.4310 ####[facility] [address] [place], [address] Urinalysis, Completeon 11-13 EPI,SQUAMOUS 0-5 SEEN Normal 0-5 [facility] Comment on above: Order Comment: CLEAN CATCH Performed By: #### L 400.0001 ####[facility] [address] [place], [address] RBC 10-25 SEEN Normal 0-5 [facility] Comment on above: Order Comment: CLEAN CATCH Performed By: #### L 400.0001 ####[facility] [address] [place], [address] BACTERIA 1+ /hpf Normal None Seen [facility] Comment on above: Order Comment: CLEAN CATCH Performed By: #### L 400.0001 ####[facility] [address] [place], [address] WBC >100 SEEN Normal 0-5 [facility] Comment on above: Order Comment: CLEAN CATCH Performed By: #### L 400.0001 ####[facility] [address] [place], [address] Mucus Ql (Urine sed) 0 SEEN Normal [facility] Comment on above: Order Comment: CLEAN CATCH Performed By: #### L 400.0001 ####[facility] [address] [place], [address] Anion gap in Serum or Plasma Ordered By: Miguel Carrillo on 10-17-2024 Anion gap [Moles/Vol] 11 mmol/L 5-15 [facility] BUN/creatinine ratioOrdered By: Miguel Carrillo on 10-17-2024 Urea nitrogen/Creatinine [Mass ratio] 20.1 mg/mg High 10-20 [facility] Basic Metabolic Profile (BMP )on 10-17-2024 BUN/CRE 20.1 RATIO High 10-20 [facility] Comment on above: Performed By: #### L 500.2500, L501.5200 ####[facility] [address] [place], [address] Calcium [Mass/Vol] 9.5 mg/dL Normal 7.6-11.0 [facility] Comment on above: Performed By: #### L 500.2500, L501.5200 ####[facility] [address] [place], [address] Chloride [Moles/Vol] 103 mmol/L Normal 98-108 [facility] Comment on above: Performed By: #### L 500.2500, L501.5200 ####[facility] [address] [place], [address] CO2 [Moles/Vol] 23.9 mmol/L Normal 21.0-32.0 [facility] Comment on above: Performed By: #### L 500.2500, L501.5200 ####[facility] [address] [place], [address] Creatinine [Mass/Vol] 1.35 mg/dL High 0.70-1.20 [facility] Comment on above: Performed By: #### L 500.2500, L501.5200 ####[facility] [address] [place], [address] GAP 11 Normal 5-15 [facility] Comment on above: Performed By: #### L 500.2500, L501.5200 ####[facility] [address] [place], [address] GFR/1.73 sq M.predicted among non-blacks MDRD (S/P/Bld) [Vol rate/Area] 54 mL/min/{1.73_m2} Low >60 [facility] Comment on above: Result Comment: mL/m in/1.73m2 CKD-EPI Creatinine Equation (2020) Performed By: #### L 500.2500, L501.5200 ####[facility] [address] [place], [address] Glucose [Mass/Vol] 98 mg/dL Normal 70-99 [facility] Comment on above: Performed By: #### L 500.2500, L501.5200 ####[facility] [address] [place], [address] Potassium [Moles/Vol] 3.9 mmol/L Normal 3.3-5.1 [facility] Comment on above: Performed By: #### L 500.2500, L501.5200 ####[facility] [address] [place], [address] Sodium [Moles/Vol] 138 mmol/L Normal 133-145 [facility] Comment on above: Performed By: #### L 500.2500, L501.5200 ####[facility] [address] [place], [address] Urea nitrogen [Mass/Vol] 27 mg/dL High 4-19 [facility] Comment on above: Performed By: #### L 500.2500, L501.5200 ####[facility] [address] [place], [address] Carbon dioxide, total [Moles /volume] in Central venous bloodOrdered By: Miguel Carrillo on 10-17-2024 CO2 [Moles/Vol] 23.9 mmol/L 21.0-32.0 [facility] Chloride assayOrdered By: Cherri Carrillo on 10-17-2024 Chloride [Moles/Vol] 103 mmol/L 98-108 [facility] Glomerular filtration rate ( GFR) estimation/1.73 sq m using serum, plasma, or whole bOrdered By: Miguel Carrillo on 10-17-2024 GFR/1.73 sq M.predicted among non-blacks MDRD (S/P/Bld) [Vol rate/Area] 54 mL/min/{1.73_m2} Low >60 [facility] Comment on above: mL/min/1.73m2 CKD-EP I Creatinine Equation (2020) Magnesiumon 10-17-2024 Magnesium [Mass/Vol] 2.5 mg/dL High 1.5-2.2 [facility] Comment on above: Performed By: #### L 500.2500, L501.5200 ####[facility] [address] [place], [address] Magnesium measurement (mass/ volume)Ordered By: Miguel Carrillo on 10-17-2024 Magnesium (Unsp spec) [Mass/Vol] 2.5 mg/dL High 1.5-2.2 [facility] Potassium measurement (mass/ volume)Ordered By: Miguel Carrillo on 10-17-2024 Potassium (Unsp spec) [Mass/Vol] 3.9 mmol/L 3.3-5.1 [facility] Serum creatinine measurement (mass/volume)Ordered By: Miguel Carrillo on 10-17-2024 Creatinine [Mass/Vol] 1.35 mg/dL High 0.70-1.20 [facility] Serum glucose measurement (m ass/volume)Ordered By: Miguel Carrillo on 10-17-2024 Glucose [Mass/Vol] 98 mg/dL 70-99 [facility] Serum or plasma calcium nicole urement (mass/volume)Ordered By: Miguel Carrillo on 10-17-2024 Calcium [Mass/Vol] 9.5 mg/dL 7.6-11.0 [facility] Serum or plasma urea nitroge n measurement (mass/volume)Ordered By: Miguel Carrillo on 10-17-2024 Urea nitrogen [Mass/Vol] 27 mg/dL High 4-19 [facility] Sodium levelOrdered By: Dario Carrillo on 10-17-2024 Sodium [Moles/Vol] 138 mmol/L 133-145 [facility] Re-Evalution OTon 10-03-2024 Re-Evalution OT Normal [facility] SP/HP.SPREEVon 09-13-2024 SP/HP.SPREEV Normal [facility] Re-Evaluation - PT (1)on Re-Evaluation - PT (1) Normal [facility] Pacemaker Checkon 08-16-2024 Pacemaker Check Normal [facility] Cardiology Visit Reporton Cardiology Visit Report Normal [facility] Re-Evaluation - PT (1)on Re-Evaluation - PT (1) Normal [facility] Re-Evalution OTon 07-10-2024 Re-Evalution OT Normal [facility] SP/HP.SP.Josh 06-15-2024 SP/HP.SP.EV Normal [facility] Inital Evaluation (1) - PTon 05-25-2024 Inital Evaluation (1) - PT Normal [facility] OT General Evaluationon OT General Evaluation Normal [facility] Basic Metabolic Profile (BMP )on 05-02-2024 BUN Normal -18 [facility] Comment on above: Result Comment: Canc elled via OM: Order cancelled - Patient discharged Performed By: #### L 500.2500, L100.0100 ####[facility] [address] [place], [address] BUN/CRE Normal 10-20 [facility] Comment on above: Result Comment: Canc elled via OM: Order cancelled - Patient discharged Performed By: #### L 500.2500, L100.0100 ####[facility] [address] [place], [address] CA,Total Normal 8.5-10.1 [facility] Comment on above: Result Comment: Canc elled via OM: Order cancelled - Patient discharged Performed By: #### L 500.2500, L100.0100 ####[facility] [address] [place], [address] CL Normal 98-107 [facility] Comment on above: Result Comment: Canc elled via OM: Order cancelled - Patient discharged Performed By: #### L 500.2500, L100.0100 ####[facility] [address] [place], [address] CO2 Normal 21.0-32.0 [facility] Comment on above: Result Comment: Canc elled via OM: Order cancelled - Patient discharged Performed By: #### L 500.2500, L100.0100 ####[facility] [address] [place], [address] CREAT,SERUM Normal 0.70-1.30 [facility] Comment on above: Result Comment: Canc elled via OM: Order cancelled - Patient discharged Performed By: #### L 500.2500, L100.0100 ####[facility] [address] [place], [address] EST GFR Normal >60 [facility] Comment on above: Result Comment: Canc elled via OM: Order cancelled - Patient discharged Performed By: #### L 500.2500, L100.0100 ####[facility] [address] [place], [address] EST GFR - AA Normal >60 [facility] Comment on above: Result Comment: Canc elled via OM: Order cancelled - Patient discharged Performed By: #### L 500.2500, L100.0100 ####[facility] [address] [place], [address] GAP Normal 5-15 [facility] Comment on above: Result Comment: Canc elled via OM: Order cancelled - Patient discharged Performed By: #### L 500.2500, L100.0100 ####[facility] [address] [place], [address] GLU Normal 74-106 [facility] Comment on above: Result Comment: Canc elled via OM: Order cancelled - Patient discharged Performed By: #### L 500.2500, L100.0100 ####[facility] [address] [place], [address] Potassium Normal 3.5-5.1 [facility] Comment on above: Result Comment: Canc elled via OM: Order cancelled - Patient discharged Performed By: #### L 500.2500, L100.0100 ####[facility] [address] [place], [address] Basic Metabolic Profile (BMP) Normal 136-145 [facility] Comment on above: Result Comment: Canc elled via OM: Order cancelled - Patient discharged Performed By: #### L 500.2500, L100.0100 ####[facility] [address] [place], [address] CBC W/Diff, Automatedon 04-15 Absolute Neut Normal 2.0-7.7 [facility] Comment on above: Result Comment: Canc elled via OM: Order cancelled - Patient discharged Performed By: #### L 500.2500, L100.0100 ####[facility] [address] [place], [address] HCT Normal 40-54 [facility] Comment on above: Result Comment: Canc elled via OM: Order cancelled - Patient discharged Performed By: #### L 500.2500, L100.0100 ####[facility] [address] [place], [address] HGB Normal 13.0-16.5 [facility] Comment on above: Result Comment: Canc elled via OM: Order cancelled - Patient discharged Performed By: #### L 500.2500, L100.0100 ####[facility] [address] [place], [address] MCH Normal 27.0-32.0 [facility] Comment on above: Result Comment: Canc elled via OM: Order cancelled - Patient discharged Performed By: #### L 500.2500, L100.0100 ####[facility] [address] [place], [address] MCHC Normal 32-36 [facility] Comment on above: Result Comment: Canc elled via OM: Order cancelled - Patient discharged Performed By: #### L 500.2500, L100.0100 ####[facility] [address] [place], [address] MCV Normal 80-94 [facility] Comment on above: Result Comment: Canc elled via OM: Order cancelled - Patient discharged Performed By: #### L 500.2500, L100.0100 ####[facility] [address] [place], [address] NEUT% Normal 47-70 [facility] Comment on above: Result Comment: Canc elled via OM: Order cancelled - Patient discharged Performed By: #### L 500.2500, L100.0100 ####[facility] [address] [place], [address] PLT Normal 150-450 [facility] Comment on above: Result Comment: Canc elled via OM: Order cancelled - Patient discharged Performed By: #### L 500.2500, L100.0100 ####[facility] [address] [place], [address] RBC Normal 4.6-6.2 [facility] Comment on above: Result Comment: Canc elled via OM: Order cancelled - Patient discharged Performed By: #### L 500.2500, L100.0100 ####[facility] [address] [place], [address] RDW CV Normal 11.6-14.6 [facility] Comment on above: Result Comment: Canc elled via OM: Order cancelled - Patient discharged Performed By: #### L 500.2500, L100.0100 ####[facility] [address] [place], [address] RDW SD Normal 35.1-43.9 [facility] Comment on above: Result Comment: Canc elled via OM: Order cancelled - Patient discharged Performed By: #### L 500.2500, L100.0100 ####[facility] [address] [place], [address] WBC Normal 4.4-11.0 [facility] Comment on above: Result Comment: Canc elled via OM: Order cancelled - Patient discharged Performed By: #### L 500.2500, L100.0100 ####[facility] [address] [place], [address] COVID 19 AG RAPID (RN COLLEC T)on 04-26-2024 SARS-CoV-2 (COVID-19) RNA ALEXYS+probe Ql (Unsp spec) Normal [facility] Comment on above: Performed By: #### M 100.505 ####[facility] [address] [place], [address] COVID-19 virus antigen assay Ordered By: Luis Carlos Gallardo on 04-26-2024 SARS-CoV-2 (COVID-19) Ag IA.rapid Ql (Resp) [facility] Absolute lymphocyte countOrd ered By: Luis Carlos Gallardo on 04-25-2024 Lymphocytes Auto (Unsp spec) [#/Vol] 0.89 10*3/uL 0.83-4.51 [facility] Absolute neutrophil countOrd ered By: [facility]24 Neutrophils (Bld) [#/Vol] 4.4 10*3/uL 2.0-7.7 [facility] Automated lymphocyte count a s percentage of total leukocytesOrdered By: Luis Carlos Gallardo on 04-25-2024 Lymphocytes/100 WBC Auto (Unsp spec) 14.5 % Low 19-41 [facility] Basic Metabolic Profile (BMP )on 04-25-2024 BUN/CRE 29.8 RATIO High 10-20 [facility] Comment on above: Performed By: #### L 100.0100, L500.2500 ####[facility] [address] [place], [address] CA,Total 8.7 mg/dL Normal 8.5-10.1 [facility] Comment on above: Performed By: #### L 100.0100, L500.2500 ####[facility] [address] [place], [address] Chloride [Moles/Vol] 110 mmol/L High 98-107 [facility] Comment on above: Performed By: #### L 100.0100, L500.2500 ####[facility] [address] [place], [address] CO2 [Moles/Vol] 25.0 mmol/L Normal 21.0-32.0 [facility] Comment on above: Performed By: #### L 100.0100, L500.2500 ####[facility] [address] [place], [address] Creatinine [Mass/Vol] 0.80 mg/dL Normal 0.70-1.30 [facility] Comment on above: Result Comment: The validity of the calculated GFR GFRAA in patients over70 years has not been determined. Clinical correlation isessential. Performed By: #### L 100.0100, L500.2500 ####[facility] [address] [place], [address] ECRCL 95.04 ml/min Normal [facility] Comment on above: Performed By: #### L 100.0100, L500.2500 ####[facility] [address] [place], [address] EST GFR - AA 119 mL/min Normal >60 [facility] Comment on above: Result Comment: Afri can Citizen [place] GFR Calc Performed By: #### L 100.0100, L500.2500 ####[facility] [address] [place], [address] GAP 4 Low 5-15 [facility] Comment on above: Performed By: #### L 100.0100, L500.2500 ####[facility] [address] [place], [address] GFR/1.73 sq M.predicted among non-blacks MDRD (S/P/Bld) [Vol rate/Area] 99 mL/min/{1.73_m2} Normal >60 [facility] Comment on above: Result Comment: Non- GFR Calc Performed By: #### L 100.0100, L500.2500 ####[facility] [address] [place], [address] Glucose [Mass/Vol] 80 mg/dL Normal 74-106 [facility] Comment on above: Performed By: #### L 100.0100, L500.2500 ####[facility] [address] [place], [address] Potassium [Moles/Vol] 4.0 mmol/L Normal 3.5-5.1 [facility] Comment on above: Performed By: #### L 100.0100, L500.2500 ####[facility] [address] [place], [address] Sodium [Moles/Vol] 139 mmol/L Normal 136-145 [facility] Comment on above: Performed By: #### L 100.0100, L500.2500 ####[facility] [address] [place], [address] Urea nitrogen [Mass/Vol] 24 mg/dL High 7-18 [facility] Comment on above: Performed By: #### L 100.0100, L500.2500 ####[facility] [address] [place], [address] Basophil percentageOrdered B y: Luis Carlos Gallardo on 04-25-2024 Basophils/100 WBC (Bld) 0.7 % 0-1 [facility] Blood urea nitrogen (BUN)/cr eatinine ratioOrdered By: Luis Carlos Gallardo on 04-25-2024 Urea nitrogen/Creatinine [Mass ratio] 29.8 mg/mg High 10-20 [facility] CBC W/Diff, Automatedon 04-15 Absolute Lymph 0.89 X10 3/uL Normal 0.83-4.51 [facility] Comment on above: Performed By: #### L 100.0100, L500.2500 ####[facility] [address] [place], [address] Absolute Neut 4.4 X10 3/uL Normal 2.0-7.7 [facility] Comment on above: Performed By: #### L 100.0100, L500.2500 ####[facility] [address] [place], [address] Basophils/100 WBC (Bld) 0.7 % Normal 0-1 [facility] Comment on above: Performed By: #### L 100.0100, L500.2500 ####[facility] [address] [place], [address] Eosinophils/100 WBC (Bld) 3.8 % Normal 0-5 [facility] Comment on above: Performed By: #### L 100.0100, L500.2500 ####[facility] [address] [place], [address] Erythrocyte distribution width (RBC) [Ratio] 15.9 % High 11.6-14.6 [facility] Comment on above: Performed By: #### L 100.0100, L500.2500 ####[facility] [address] [place], [address] Hematocrit (Bld) [Volume fraction] 29.8 % Low 40-54 [facility] Comment on above: Performed By: #### L 100.0100, L500.2500 ####[facility] [address] [place], [address] Hemoglobin (Bld) [Mass/Vol] 9.9 g/dL Low 13.0-16.5 [facility] Comment on above: Performed By: #### L 100.0100, L500.2500 ####[facility] [address] [place], [address] IG% 0.500 Normal 0.0-0.9 [facility] Comment on above: Result Comment: IG% - Immature Granulocytes (promyelocytes, myelocytes andmetamyelocytes) > 1% indicates that a LEFT SHIFT is Present. Performed By: #### L 100.0100, L500.2500 ####[facility] [address] [place], [address] Lymphocytes/100 WBC (Bld) 14.5 % Low 19-41 [facility] Comment on above: Performed By: #### L 100.0100, L500.2500 ####[facility] [address] [place], [address] MCH (RBC) [Entitic mass] 29.0 pg Normal 27.0-32.0 [facility] Comment on above: Performed By: #### L 100.0100, L500.2500 ####[facility] [address] [place], [address] MCHC (RBC) [Mass/Vol] 33.2 g/dL Normal 32-36 [facility] Comment on above: Performed By: #### L 100.0100, L500.2500 ####[facility] [address] [place], [address] MCV (RBC) [Entitic vol] 87.4 fL Normal 80-94 [facility] Comment on above: Performed By: #### L 100.0100, L500.2500 ####[facility] [address] [place], [address] Monocytes/100 WBC (Bld) 8.2 % Normal 0-10 [facility] Comment on above: Performed By: #### L 100.0100, L500.2500 ####[facility] [address] [place], [address] Neutrophils/100 WBC (Bld) 72.3 % High 47-70 [facility] Comment on above: Performed By: #### L 100.0100, L500.2500 ####[facility] [address] [place], [address] Nucleated RBC (Bld) [#/Vol] 0 10*3/uL Normal 0-5 [facility] Comment on above: Performed By: #### L 100.0100, L500.2500 ####[facility] [address] [place], [address] Platelet mean volume (Bld) [Entitic vol] 9.8 fL Normal 6.2-12.0 [facility] Comment on above: Performed By: #### L 100.0100, L500.2500 ####[facility] [address] [place], [address] Platelets (Bld) [#/Vol] 178 10*3/uL Normal 150-450 [facility] Comment on above: Performed By: #### L 100.0100, L500.2500 ####[facility] [address] [place], [address] RBC (Bld) [#/Vol] 3.41 10*6/uL Low 4.6-6.2 [facility] Comment on above: Performed By: #### L 100.0100, L500.2500 ####[facility] [address] [place], [address] RDW SD 50.5 fl High 35.1-43.9 [facility] Comment on above: Performed By: #### L 100.0100, L500.2500 ####[facility] [address] [place], [address] WBC (Bld) [#/Vol] 6.1 10*3/uL Normal 4.4-11.0 [facility] Comment on above: Performed By: #### L 100.0100, L500.2500 ####[facility] [address] [place], [address] Carbon dioxide measurementOr dered By: Luis Carlos Gallardo on 04-25-2024 CO2 [Moles/Vol] 25.0 mmol/L 21.0-32.0 [facility] Chloride measurementOrdered By: Luis Carlos Gallardo on 04-25-2024 Chloride [Moles/Vol] 110 mmol/L High 98-107 [facility] Eosinophil percentageOrdered By: [facility] 04-25-2024 Eosinophils/100 WBC (Bld) 3.8 % 0-5 [facility] Erythrocyte distribution wid th ratioOrdered By: Luis Carlos Sami 04-25-2024 Erythrocyte distribution width (RBC) [Ratio] 15.9 % High 11.6-14.6 [facility] Erythrocyte distribution wid th standard deviationOrdered By: [facility] 04-[facility]-20[facility] Erythrocyte distribution width (RBC) [Ratio] 50.5 fl High 35.1-43.9 [facility] Glomerular filtration rate ( GFR) estimationOrdered By: [facility] 04-25-20[facility] GFR/1.73 sq M.predicted among non-blacks MDRD (S/P/Bld) [Vol rate/Area] 99 mL/min/{1.73_m2} >60 [facility] Comment on above: Non- GFR Calc Glucose measurementOrdered B y: Luis Carlos Gallardo 04-25-2024 Glucose [Mass/Vol] 80 mg/dL 74-106 [facility] Hematocrit Auto (Bld) [Volum e fraction]Ordered By: [facility] 04-25-2024 Hematocrit (Bld) [Volume fraction] 29.8 % Low 40-54 [facility] Hemoglobin measurementOrdere d By: Luis Carlos Gallardo 04-25-2024 Hemoglobin (Bld) [Mass/Vol] 9.9 g/dL Low 13.0-16.5 [facility] Immature granulocytes/100 WB C Auto (Bld)Ordered By: Luis Carlos Sami 04-25-2024 Immature granulocytes/100 WBC (Bld) 0.500 % 0.0-0.9 [facility] Comment on above: IG% - Immature Granu locytes (promyelocytes, myelocytes and metamyelocytes) > 1% indicates that a LEFT SHIFT is Present. MCV (mean corpuscular volume ) determinationOrdered By: Luis Carlos Gallardo 04-25-2024 MCV (RBC) [Entitic vol] 87.4 fL 80-94 [facility] Mean corpuscular hemoglobin (MCH) determinationOrdered By: Luis Carlos Gallardo 04-25-2024 MCH (RBC) [Entitic mass] 29.0 pg 27.0-32.0 [facility] Mean corpuscular hemoglobin concentration (MCHC) determinationOrdered By: Luis Carlos Gallardo on 04-25-2024 MCHC (RBC) [Mass/Vol] 33.2 g/dL 32-36 [facility] Mean platelet volume determi nationOrdered By: Luis Carlos Gallardo on 04-25-2024 Platelet mean volume (Bld) [Entitic vol] 9.8 fL 6.2-12.0 [facility] Monocyte percentageOrdered B y: Luis Carlos Gallardo on 04-25-2024 Monocytes/100 WBC (Bld) 8.2 % 0-10 [facility] Neutrophil percentageOrdered By: Luis Carlos Gallardo on 04-25-2024 Neutrophils/100 WBC (Bld) 72.3 % High 47-70 [facility] Nucleated red blood cell per centageOrdered By: Luis Carlos Gallardo on 04-25-2024 Nucleated RBC/100 WBC (Bld) [Ratio] 0 % 0-5 [facility] Platelet countOrdered By: Nuno Gallardo on 04-25-2024 Platelets (Bld) [#/Vol] 178 10*3/uL 150-450 [facility] Potassium measurementOrdered By: Luis Carlos Gallardo on 04-25-2024 Potassium [Moles/Vol] 4.0 mmol/L 3.5-5.1 [facility] RBC Auto (Bld) [#/Vol]Ordere d By: Luis Carlos Gallardo on 04-25-2024 RBC (Bld) [#/Vol] 3.41 10*6/uL Low 4.6-6.2 [facility] Serum anion gap measurementO rdered By: Luis Carlos Gallardo on 04-25-2024 Anion gap [Moles/Vol] 4 mmol/L Low 5-15 [facility] Serum or plasma calcium nicole urement (mass/volume)Ordered By: Luis Carlos Gallardo on 04-25-2024 Calcium [Mass/Vol] 8.7 mg/dL 8.5-10.1 [facility] Serum or plasma creatinine m easurement (mass/volume)Ordered By: Luis Carlos Gallardo on 04-25-2024 Creatinine [Mass/Vol] 0.80 mg/dL 0.70-1.30 [facility] Comment on above: The validity of the calculated GFR & GFRAA in patients over 70 years has not been determined. Clinical correlation is essential. Serum or plasma urea nitroge n measurement (mass/volume)Ordered By: Luis Carlos Gallardo on 04-25-2024 Urea nitrogen [Mass/Vol] 24 mg/dL High 7-18 [facility] Sodium levelOrdered By: Luis Carlos Gallardo on 04-25-2024 Sodium [Moles/Vol] 139 mmol/L 136-145 [facility] White blood cell (WBC) count Ordered By: Luis Carlos Gallardo on 04-25-2024 WBC (Bld) [#/Vol] 6.1 10*3/uL 4.4-11.0 [facility] HH, Hemoglobin AND Hematocri ton 04-21-2024 Hematocrit (Bld) [Volume fraction] 32.3 % Low 40-54 [facility] Comment on above: Performed By: #### L 100.0600 ####[facility] [address] [place], [address] Hemoglobin (Bld) [Mass/Vol] 10.5 g/dL Low 13.0-16.5 [facility] Comment on above: Performed By: #### L 100.0600 ####[facility] [address] [place], [address] Basic Metabolic Profile (BMP )on 04-20-2024 BUN/CRE 18.0 RATIO Normal 10-20 [facility] Comment on above: Performed By: #### L 500.2500 ####[facility] [address] [place], [address] CA,Total 9.2 mg/dL Normal 8.5-10.1 [facility] Comment on above: Performed By: #### L 500.2500 ####[facility] [address] [place], [address] Chloride [Moles/Vol] 112 mmol/L High 98-107 [facility] Comment on above: Performed By: #### L 500.2500 ####[facility] [address] [place], [address] CO2 [Moles/Vol] 24.0 mmol/L Normal 21.0-32.0 [facility] Comment on above: Performed By: #### L 500.2500 ####[facility] [address] [place], [address] Creatinine [Mass/Vol] 1.00 mg/dL Normal 0.70-1.30 [facility] Comment on above: Result Comment: The validity of the calculated GFR GFRAA in patients over70 years has not been determined. Clinical correlation isessential. Performed By: #### L 500.2500 ####[facility] [address] [place], [address] ECRCL 76.03 ml/min Normal [facility] Comment on above: Performed By: #### L 500.2500 ####[facility] [address] [place], [address] EST GFR - AA 93 mL/min Normal >60 [facility] Comment on above: Result Comment: Afri can [place] GFR Calc Performed By: #### L 500.2500 ####[facility] [address] [place], [address] GAP 6 Normal 5-15 [facility] Comment on above: Performed By: #### L 500.2500 ####[facility] [address] [place], [address] GFR/1.73 sq M.predicted among non-blacks MDRD (S/P/Bld) [Vol rate/Area] 77 mL/min/{1.73_m2} Normal >60 [facility] Comment on above: Result Comment: Non- GFR Calc Performed By: #### L 500.2500 ####[facility] [address] [place], [address] Glucose [Mass/Vol] 80 mg/dL Normal 74-106 [facility] Comment on above: Performed By: #### L 500.2500 ####[facility] [address] [place], [address] Potassium [Moles/Vol] 3.7 mmol/L Normal 3.5-5.1 [facility] Comment on above: Performed By: #### L 500.2500 ####[facility] [address] [place], [address] Sodium [Moles/Vol] 142 mmol/L Normal 136-145 [facility] Comment on above: Performed By: #### L 500.2500 ####[facility] [address] [place], [address] Urea nitrogen [Mass/Vol] 18 mg/dL Normal 7-18 [facility] Comment on above: Performed By: #### L 500.2500 ####[facility] [address] [place], [address] Basic Metabolic Profile (BMP )on 04-18-2024 BUN/CRE 16.7 RATIO Normal 10-20 [facility] Comment on above: Performed By: #### L 100.0100, L500.2500 ####[facility] [address] [place], [address] CA,Total 8.7 mg/dL Normal 8.5-10.1 [facility] Comment on above: Performed By: #### L 100.0100, L500.2500 ####[facility] [address] [place], [address] Chloride [Moles/Vol] 110 mmol/L High 98-107 [facility] Comment on above: Performed By: #### L 100.0100, L500.2500 ####[facility] [address] [place], [address] CO2 [Moles/Vol] 24.0 mmol/L Normal 21.0-32.0 [facility] Comment on above: Performed By: #### L 100.0100, L500.2500 ####[facility] [address] [place], [address] Creatinine [Mass/Vol] 1.02 mg/dL Normal 0.70-1.30 [facility] Comment on above: Result Comment: The validity of the calculated GFR GFRAA in patients over70 years has not been determined. Clinical correlation isessential. Performed By: #### L 100.0100, L500.2500 ####[facility] [address] [place], [address] ECRCL 74.54 ml/min Normal [facility] Comment on above: Performed By: #### L 100.0100, L500.2500 ####[facility] [address] [place], [address] EST GFR - AA 91 mL/min Normal >60 [facility] Comment on above: Result Comment: Afri can [place] GFR Calc Performed By: #### L 100.0100, L500.2500 ####[facility] [address] [place], [address] GAP 7 Normal 5-15 [facility] Comment on above: Performed By: #### L 100.0100, L500.2500 ####[facility] [address] [place], [address] GFR/1.73 sq M.predicted among non-blacks MDRD (S/P/Bld) [Vol rate/Area] 75 mL/min/{1.73_m2} Normal >60 [facility] Comment on above: Result Comment: Non- GFR Calc Performed By: #### L 100.0100, L500.2500 ####[facility] [address] [place], [address] Glucose [Mass/Vol] 85 mg/dL Normal 74-106 [facility] Comment on above: Performed By: #### L 100.0100, L500.2500 ####[facility] [address] [place], [address] Potassium [Moles/Vol] 3.4 mmol/L Low 3.5-5.1 [facility] Comment on above: Performed By: #### L 100.0100, L500.2500 ####[facility] [address] [place], [address] Sodium [Moles/Vol] 142 mmol/L Normal 136-145 [facility] Comment on above: Performed By: #### L 100.0100, L500.2500 ####[facility] [address] [place], [address] Urea nitrogen [Mass/Vol] 17 mg/dL Normal 7-18 [facility] Comment on above: Performed By: #### L 100.0100, L500.2500 ####[facility] [address] [place], [address] CBC W/Diff, Automatedon 02-0 4-2025 Absolute Lymph 0.87 X10 3/uL Normal 0.83-4.51 [facility] Comment on above: Performed By: #### L 100.0100, L500.2500 ####[facility] [address] [place], [address] Absolute Neut 3.4 X10 3/uL Normal 2.0-7.7 [facility] Comment on above: Performed By: #### L 100.0100, L500.2500 ####[facility] [address] [place], [address] Basophils/100 WBC (Bld) 0.2 % Normal 0-1 [facility] Comment on above: Performed By: #### L 100.0100, L500.2500 ####[facility] [address] [place], [address] Eosinophils/100 WBC (Bld) 3.7 % Normal 0-5 [facility] Comment on above: Performed By: #### L 100.0100, L500.2500 ####[facility] [address] [place], [address] Erythrocyte distribution width (RBC) [Ratio] 15.0 % High 11.6-14.6 [facility] Comment on above: Performed By: #### L 100.0100, L500.2500 ####[facility] [address] [place], [address] Hematocrit (Bld) [Volume fraction] 32.1 % Low 40-54 [facility] Comment on above: Performed By: #### L 100.0100, L500.2500 ####[facility] [address] [place], [address] Hemoglobin (Bld) [Mass/Vol] 10.4 g/dL Low 13.0-16.5 [facility] Comment on above: Performed By: #### L 100.0100, L500.2500 ####[facility] [address] [place], [address] IG% 0.400 Normal 0.0-0.9 [facility] Comment on above: Result Comment: IG% - Immature Granulocytes (promyelocytes, myelocytes andmetamyelocytes) > 1% indicates that a LEFT SHIFT is Present. Performed By: #### L 100.0100, L500.2500 ####[facility] [address] [place], [address] Lymphocytes/100 WBC (Bld) 17.9 % Low 19-41 [facility] Comment on above: Performed By: #### L 100.0100, L500.2500 ####[facility] [address] [place], [address] MCH (RBC) [Entitic mass] 28.0 pg Normal 27.0-32.0 [facility] Comment on above: Performed By: #### L 100.0100, L500.2500 ####[facility] [address] [place], [address] MCHC (RBC) [Mass/Vol] 32.4 g/dL Normal 32-36 [facility] Comment on above: Performed By: #### L 100.0100, L500.2500 ####[facility] [address] [place], [address] MCV (RBC) [Entitic vol] 86.5 fL Normal 80-94 [facility] Comment on above: Performed By: #### L 100.0100, L500.2500 ####[facility] [address] [place], [address] Monocytes/100 WBC (Bld) 8.2 % Normal 0-10 [facility] Comment on above: Performed By: #### L 100.0100, L500.2500 ####[facility] [address] [place], [address] Neutrophils/100 WBC (Bld) 69.6 % Normal 47-70 [facility] Comment on above: Performed By: #### L 100.0100, L500.2500 ####[facility] [address] [place], [address] Nucleated RBC (Bld) [#/Vol] 0 10*3/uL Normal 0-5 [facility] Comment on above: Performed By: #### L 100.0100, L500.2500 ####[facility] [address] [place], [address] Platelet mean volume (Bld) [Entitic vol] 10.3 fL Normal 6.2-12.0 [facility] Comment on above: Performed By: #### L 100.0100, L500.2500 ####[facility] [address] [place], [address] Platelets (Bld) [#/Vol] 192 10*3/uL Normal 150-450 [facility] Comment on above: Performed By: #### L 100.0100, L500.2500 ####[facility] [address] [place], [address] RBC (Bld) [#/Vol] 3.71 10*6/uL Low 4.6-6.2 [facility] Comment on above: Performed By: #### L 100.0100, L500.2500 ####[facility] [address] [place], [address] RDW SD 47.0 fl High 35.1-43.9 [facility] Comment on above: Performed By: #### L 100.0100, L500.2500 ####[facility] [address] [place], [address] WBC (Bld) [#/Vol] 4.9 10*3/uL Normal 4.4-11.0 [facility] Comment on above: Performed By: #### L 100.0100, L500.2500 ####[facility] [address] [place], [address] Bedside Glucoseon 04-14-2024 FINGERSTICK GLU 91 mg/dL Normal 74-106 [facility] Comment on above: Result Comment: NETO XIE OF PATIENT CARE PER NURSING PROTOCOL Performed By: #### L 501.080 ####[facility] [address] [place], [address] [facility] de[facility]dered By: Luis Carlos Gallardo on 04-14-2024 Glucose [Mass/Vol] 91 mg/dL 74-106 [facility] Comment on above: MANAGEMENT OF PATIEN T CARE PER NURSING PROTOCOL Basic Metabolic Profile (BMP )on 04-12-2024 BUN/CRE 15.7 RATIO Normal 10-20 [facility] Comment on above: Performed By: #### L 100.0100, L500.2500 ####[facility] [address] [place], [address] CA,Total 8.5 mg/dL Normal 8.5-10.1 [facility] Comment on above: Performed By: #### L 100.0100, L500.2500 ####[facility] [address] [place], [address] Chloride [Moles/Vol] 110 mmol/L High 98-107 [facility] Comment on above: Performed By: #### L 100.0100, L500.2500 ####[facility] [address] [place], [address] CO2 [Moles/Vol] 21.0 mmol/L Normal 21.0-32.0 [facility] Comment on above: Performed By: #### L 100.0100, L500.2500 ####[facility] [address] [place], [address] Creatinine [Mass/Vol] 0.96 mg/dL Normal 0.70-1.30 [facility] Comment on above: Result Comment: The validity of the calculated GFR GFRAA in patients over70 years has not been determined. Clinical correlation isessential. Performed By: #### L 100.0100, L500.2500 ####[facility] [address] [place], [address] ECRCL 78.95 ml/min Normal [facility] Comment on above: Performed By: #### L 100.0100, L500.2500 ####[facility] [address] [place], [address] EST GFR - AA 98 mL/min Normal >60 [facility] Comment on above: Result Comment: Afri can [place] GFR Calc Performed By: #### L 100.0100, L500.2500 ####[facility] [address] [place], [address] GAP 9 Normal 5-15 [facility] Comment on above: Performed By: #### L 100.0100, L500.2500 ####[facility] [address] [place], [address] GFR/1.73 sq M.predicted among non-blacks MDRD (S/P/Bld) [Vol rate/Area] 81 mL/min/{1.73_m2} Normal >60 [facility] Comment on above: Result Comment: Non- GFR Calc Performed By: #### L 100.0100, L500.2500 ####[facility] [address] [place], [address] Glucose [Mass/Vol] 90 mg/dL Normal 74-106 [facility] Comment on above: Performed By: #### L 100.0100, L500.2500 ####[facility] [address] [place], [address] Potassium [Moles/Vol] 3.6 mmol/L Normal 3.5-5.1 [facility] Comment on above: Performed By: #### L 100.0100, L500.2500 ####[facility] [address] [place], [address] Sodium [Moles/Vol] 139 mmol/L Normal 136-145 [facility] Comment on above: Performed By: #### L 100.0100, L500.2500 ####[facility] [address] [place], [address] Urea nitrogen [Mass/Vol] 15 mg/dL Normal 7-18 [facility] Comment on above: Performed By: #### L 100.0100, L500.2500 ####[facility] [address] [place], [address] CBC W/Diff, Automatedon -2 Absolute Lymph 0.67 X10 3/uL Low 0.83-4.51 [facility] Comment on above: Performed By: #### L 100.0100, L500.2500 ####[facility] [address] [place], [address] Absolute Neut 2.0 X10 3/uL Normal 2.0-7.7 [facility] Comment on above: Performed By: #### L 100.0100, L500.2500 ####[facility] [address] [place], [address] Basophils/100 WBC (Bld) 0.3 % Normal 0-1 [facility] Comment on above: Performed By: #### L 100.0100, L500.2500 ####[facility] [address] [place], [address] Eosinophils/100 WBC (Bld) 4.5 % Normal 0-5 [facility] Comment on above: Performed By: #### L 100.0100, L500.2500 ####[facility] [address] [place], [address] Erythrocyte distribution width (RBC) [Ratio] 15.5 % High 11.6-14.6 [facility] Comment on above: Performed By: #### L 100.0100, L500.2500 ####[facility] [address] [place], [address] Hematocrit (Bld) [Volume fraction] 29.8 % Low 40-54 [facility] Comment on above: Performed By: #### L 100.0100, L500.2500 ####[facility] [address] [place], [address] Hemoglobin (Bld) [Mass/Vol] 10.0 g/dL Low 13.0-16.5 [facility] Comment on above: Performed By: #### L 100.0100, L500.2500 ####[facility] [address] [place], [address] IG% 0.600 Normal 0.0-0.9 [facility] Comment on above: Result Comment: IG% - Immature Granulocytes (promyelocytes, myelocytes andmetamyelocytes) > 1% indicates that a LEFT SHIFT is Present. Performed By: #### L 100.0100, L500.2500 ####[facility] [address] [place], [address] Lymphocytes/100 WBC (Bld) 21.3 % Normal 19-41 [facility] Comment on above: Performed By: #### L 100.0100, L500.2500 ####[facility] [address] [place], [address] MCH (RBC) [Entitic mass] 28.4 pg Normal 27.0-32.0 [facility] Comment on above: Performed By: #### L 100.0100, L500.2500 ####[facility] [address] [place], [address] MCHC (RBC) [Mass/Vol] 33.6 g/dL Normal 32-36 [facility] Comment on above: Performed By: #### L 100.0100, L500.2500 ####[facility] [address] [place], [address] MCV (RBC) [Entitic vol] 84.7 fL Normal 80-94 [facility] Comment on above: Performed By: #### L 100.0100, L500.2500 ####[facility] [address] [place], [address] Monocytes/100 WBC (Bld) 10.2 % High 0-10 [facility] Comment on above: Performed By: #### L 100.0100, L500.2500 ####[facility] [address] [place], [address] Neutrophils/100 WBC (Bld) 63.1 % Normal 47-70 [facility] Comment on above: Performed By: #### L 100.0100, L500.2500 ####[facility] [address] [place], [address] Nucleated RBC (Bld) [#/Vol] 0 10*3/uL Normal 0-5 [facility] Comment on above: Performed By: #### L 100.0100, L500.2500 ####[facility] [address] [place], [address] Platelet mean volume (Bld) [Entitic vol] 10.3 fL Normal 6.2-12.0 [facility] Comment on above: Performed By: #### L 100.0100, L500.2500 ####[facility] [address] [place], [address] Platelets (Bld) [#/Vol] 125 10*3/uL Low 150-450 [facility] Comment on above: Performed By: #### L 100.0100, L500.2500 ####[facility] [address] [place], [address] RBC (Bld) [#/Vol] 3.52 10*6/uL Low 4.6-6.2 [facility] Comment on above: Performed By: #### L 100.0100, L500.2500 ####[facility] [address] [place], [address] RDW SD 47.8 fl High 35.1-43.9 [facility] Comment on above: Performed By: #### L 100.0100, L500.2500 ####[facility] [address] [place], [address] WBC (Bld) [#/Vol] 3.1 10*3/uL Low 4.4-11.0 [facility] Comment on above: Performed By: #### L 100.0100, L500.2500 ####[facility] [address] [place], [address] Basic Metabolic Profile (BMP )on 04-11-2024 BUN/CRE 15.1 RATIO Normal 10-20 [facility] Comment on above: Performed By: #### L 100.0100, L500.2500 ####[facility] [address] [place], [address] CA,Total 8.7 mg/dL Normal 8.5-10.1 [facility] Comment on above: Performed By: #### L 100.0100, L500.2500 ####[facility] [address] [place], [address] Chloride [Moles/Vol] 111 mmol/L High 98-107 [facility] Comment on above: Performed By: #### L 100.0100, L500.2500 ####[facility] [address] [place], [address] CO2 [Moles/Vol] 20.0 mmol/L Low 21.0-32.0 [facility] Comment on above: Performed By: #### L 100.0100, L500.2500 ####[facility] [address] [place], [address] Creatinine [Mass/Vol] 0.93 mg/dL Normal 0.70-1.30 [facility] Comment on above: Result Comment: The validity of the calculated GFR GFRAA in patients over70 years has not been determined. Clinical correlation isessential. Performed By: #### L 100.0100, L500.2500 ####[facility] [address] [place], [address] ECRCL 81.50 ml/min Normal [facility] Comment on above: Performed By: #### L 100.0100, L500.2500 ####[facility] [address] [place], [address] EST GFR - AA 102 mL/min Normal >60 [facility] Comment on above: Result Comment: Afri can Citizen [place] GFR Calc Performed By: #### L 100.0100, L500.2500 ####[facility] [address] [place], [address] GAP 9 Normal 5-15 [facility] Comment on above: Performed By: #### L 100.0100, L500.2500 ####[facility] [address] [place], [address] GFR/1.73 sq M.predicted among non-blacks MDRD (S/P/Bld) [Vol rate/Area] 84 mL/min/{1.73_m2} Normal >60 [facility] Comment on above: Result Comment: Non- GFR Calc Performed By: #### L 100.0100, L500.2500 ####[facility] [address] [place], [address] Glucose [Mass/Vol] 88 mg/dL Normal 74-106 [facility] Comment on above: Performed By: #### L 100.0100, L500.2500 ####[facility] [address] [place], [address] Potassium [Moles/Vol] 3.3 mmol/L Low 3.5-5.1 [facility] Comment on above: Performed By: #### L 100.0100, L500.2500 ####[facility] [address] [place], [address] Sodium [Moles/Vol] 139 mmol/L Normal 136-145 [facility] Comment on above: Performed By: #### L 100.0100, L500.2500 ####[facility] [address] [place], [address] Urea nitrogen [Mass/Vol] 14 mg/dL Normal 7-18 [facility] Comment on above: Performed By: #### L 100.0100, L500.2500 ####[facility] [address] [place], [address] CBC W/Diff, Automatedon 03-16 Absolute Lymph 0.81 X10 3/uL Low 0.83-4.51 [facility] Comment on above: Performed By: #### L 100.0100, L500.2500 ####[facility] [address] [place], [address] Absolute Neut 1.6 X10 3/uL Low 2.0-7.7 [facility] Comment on above: Performed By: #### L 100.0100, L500.2500 ####[facility] [address] [place], [address] Basophils/100 WBC (Bld) 0.3 % Normal 0-1 [facility] Comment on above: Performed By: #### L 100.0100, L500.2500 ####[facility] [address] [place], [address] Eosinophils/100 WBC (Bld) 3.8 % Normal 0-5 [facility] Comment on above: Performed By: #### L 100.0100, L500.2500 ####[facility] [address] [place], [address] Erythrocyte distribution width (RBC) [Ratio] 15.6 % High 11.6-14.6 [facility] Comment on above: Performed By: #### L 100.0100, L500.2500 ####[facility] [address] [place], [address] Hematocrit (Bld) [Volume fraction] 30.8 % Low 40-54 [facility] Comment on above: Performed By: #### L 100.0100, L500.2500 ####[facility] [address] [place], [address] Hemoglobin (Bld) [Mass/Vol] 9.9 g/dL Low 13.0-16.5 [facility] Comment on above: Performed By: #### L 100.0100, L500.2500 ####[facility] [address] [place], [address] IG% 0.300 Normal 0.0-0.9 [facility] Comment on above: Result Comment: IG% - Immature Granulocytes (promyelocytes, myelocytes andmetamyelocytes) > 1% indicates that a LEFT SHIFT is Present. Performed By: #### L 100.0100, L500.2500 ####[facility] [address] [place], [address] Lymphocytes/100 WBC (Bld) 27.6 % Normal 19-41 [facility] Comment on above: Performed By: #### L 100.0100, L500.2500 ####[facility] [address] [place], [address] MCH (RBC) [Entitic mass] 27.9 pg Normal 27.0-32.0 [facility] Comment on above: Performed By: #### L 100.0100, L500.2500 ####[facility] [address] [place], [address] MCHC (RBC) [Mass/Vol] 32.1 g/dL Normal 32-36 [facility] Comment on above: Performed By: #### L 100.0100, L500.2500 ####[facility] [address] [place], [address] MCV (RBC) [Entitic vol] 86.8 fL Normal 80-94 [facility] Comment on above: Performed By: #### L 100.0100, L500.2500 ####[facility] [address] [place], [address] Monocytes/100 WBC (Bld) 13.7 % High 0-10 [facility] Comment on above: Performed By: #### L 100.0100, L500.2500 ####[facility] [address] [place], [address] Neutrophils/100 WBC (Bld) 54.3 % Normal 47-70 [facility] Comment on above: Performed By: #### L 100.0100, L500.2500 ####[facility] [address] [place], [address] Nucleated RBC (Bld) [#/Vol] 0 10*3/uL Normal 0-5 [facility] Comment on above: Performed By: #### L 100.0100, L500.2500 ####[facility] [address] [place], [address] Platelet mean volume (Bld) [Entitic vol] 10.3 fL Normal 6.2-12.0 [facility] Comment on above: Performed By: #### L 100.0100, L500.2500 ####[facility] [address] [place], [address] Platelets (Bld) [#/Vol] 124 10*3/uL Low 150-450 [facility] Comment on above: Performed By: #### L 100.0100, L500.2500 ####[facility] [address] [place], [address] RBC (Bld) [#/Vol] 3.55 10*6/uL Low 4.6-6.2 [facility] Comment on above: Performed By: #### L 100.0100, L500.2500 ####[facility] [address] [place], [address] RDW SD 49.6 fl High 35.1-43.9 [facility] Comment on above: Performed By: #### L 100.0100, L500.2500 ####[facility] [address] [place], [address] WBC (Bld) [#/Vol] 2.9 10*3/uL Low 4.4-11.0 [facility] Comment on above: Performed By: #### L 100.0100, L500.2500 ####[facility] [address] [place], [address] Culture, Blood (WB)on 2024 CUB No growth in 5 days. Normal [facility] Comment on above: Performed By: #### M 200.1000 ####[facility] [address] [place], [address] Consultation - Urologyon Consultation - Urology Normal [facility] Urine Cultureon 04-10-2024 URC Normal [facility] Comment on above: Performed By: #### M 100.2200 ####[facility] [address] [place], [address] Abdomen/Pelvis WITH Contrast on 04-07-2024 Abdomen/Pelvis WITH Contrast Normal [facility] RESPIRATORY PANEL MOLECULARo n 04-07-2024 RP PANEL Normal [facility] Comment on above: Performed By: #### M 100.638 ####[facility] [address] [place], [address] COVID 19 AG RAPID (RN COLLEC T)on 04-06-2024 SARS-CoV-2 (COVID-19) RNA ALEXYS+probe Ql (Unsp spec) Normal [facility] Comment on above: Performed By: #### M 100.505 ####[facility] [address] [place], [address] COVID-19 virus antigen assay Ordered By: Luis Carlos Gallardo on 04-06-2024 SARS-CoV-2 (COVID-19) Ag IA.rapid Ql (Resp) [facility] Chest PA and Lateralon 04-06 Chest PA and Lateral Normal [facility] Respiratory pathogens detect ion panel by molecular detection methodOrdered By: Luis Carlos Gallardo on 04-06-2024 Respiratory pathogens DNA and RNA panel ALEXYS+probe (Resp) [facility] Urine Cultureon 04-06-2024 URC Normal [facility] Comment on above: Performed By: #### L 400.0001, M100.2200 ####[facility] [address] [place], [address] Basic Metabolic Profile (BMP )on 04-05-2024 BUN/CRE 21.1 RATIO High 10-20 [facility] Comment on above: Performed By: #### L 100.0100, L500.2500 ####[facility] [address] [place], [address] CA,Total 9.3 mg/dL Normal 8.5-10.1 [facility] Comment on above: Performed By: #### L 100.0100, L500.2500 ####[facility] [address] [place], [address] Chloride [Moles/Vol] 107 mmol/L Normal 98-107 [facility] Comment on above: Performed By: #### L 100.0100, L500.2500 ####[facility] [address] [place], [address] CO2 [Moles/Vol] 25.0 mmol/L Normal 21.0-32.0 [facility] Comment on above: Performed By: #### L 100.0100, L500.2500 ####[facility] [address] [place], [address] Creatinine [Mass/Vol] 1.14 mg/dL Normal 0.70-1.30 [facility] Comment on above: Result Comment: The validity of the calculated GFR GFRAA in patients over70 years has not been determined. Clinical correlation isessential. Performed By: #### L 100.0100, L500.2500 ####[facility] [address] [place], [address] ECRCL 66.48 ml/min Normal [facility] Comment on above: Performed By: #### L 100.0100, L500.2500 ####[facility] [address] [place], [address] EST GFR - AA 80 mL/min Normal >60 [facility] Comment on above: Result Comment: Afri can Citizen [place] GFR Calc Performed By: #### L 100.0100, L500.2500 ####[facility] [address] [place], [address] GAP 8 Normal 5-15 [facility] Comment on above: Performed By: #### L 100.0100, L500.2500 ####[facility] [address] [place], [address] GFR/1.73 sq M.predicted among non-blacks MDRD (S/P/Bld) [Vol rate/Area] 66 mL/min/{1.73_m2} Normal >60 [facility] Comment on above: Result Comment: Non- GFR Calc Performed By: #### L 100.0100, L500.2500 ####[facility] [address] [place], [address] Glucose [Mass/Vol] 109 mg/dL High 74-106 [facility] Comment on above: Result Comment: Fast ing Glucose result from 100 to 125 mg/dLsuggests IMPAIRED HOMEOSTASIS per A.D.A. criteria. Performed By: #### L 100.0100, L500.2500 ####[facility] [address] [place], [address] Potassium [Moles/Vol] 4.3 mmol/L Normal 3.5-5.1 [facility] Comment on above: Performed By: #### L 100.0100, L500.2500 ####[facility] [address] [place], [address] Sodium [Moles/Vol] 140 mmol/L Normal 136-145 [facility] Comment on above: Performed By: #### L 100.0100, L500.2500 ####[facility] [address] [place], [address] Urea nitrogen [Mass/Vol] 24 mg/dL High 7-18 [facility] Comment on above: Performed By: #### L 100.0100, L500.2500 ####[facility] [address] [place], [address] Bedside Glucoseon 04-05-2024 FINGERSTICK GLU 135 mg/dL High 74-106 [facility] Comment on above: Result Comment: NETO XIE OF PATIENT CARE PER NURSING PROTOCOL Performed By: #### L 501.080 ####[facility] [address] [place], [address] Bilirubin Test strip Ql (U)O rdered By: Luis Carlos Gallardo on 04-05-2024 Bilirubin Ql (U) Negative Negative [facility] Blood cultureOrdered By: Luis Carlos Gallardo on 04-05-2024 Bacteria identified Cx Nom (Bld) No growth in 5 days. [facility] CBC W/Diff, Automatedon 03-16 Absolute Lymph 0.44 X10 3/uL Low 0.83-4.51 [facility] Comment on above: Performed By: #### L 100.0100, L500.2500 ####[facility] [address] [place], [address] Absolute Neut 7.2 X10 3/uL Normal 2.0-7.7 [facility] Comment on above: Performed By: #### L 100.0100, L500.2500 ####[facility] [address] [place], [address] Basophils/100 WBC (Bld) 0.2 % Normal 0-1 [facility] Comment on above: Performed By: #### L 100.0100, L500.2500 ####[facility] [address] [place], [address] Eosinophils/100 WBC (Bld) 1.8 % Normal 0-5 [facility] Comment on above: Performed By: #### L 100.0100, L500.2500 ####[facility] [address] [place], [address] Erythrocyte distribution width (RBC) [Ratio] 15.6 % High 11.6-14.6 [facility] Comment on above: Performed By: #### L 100.0100, L500.2500 ####[facility] [address] [place], [address] Hematocrit (Bld) [Volume fraction] 35.4 % Low 40-54 [facility] Comment on above: Performed By: #### L 100.0100, L500.2500 ####[facility] [address] [place], [address] Hemoglobin (Bld) [Mass/Vol] 11.6 g/dL Low 13.0-16.5 [facility] Comment on above: Performed By: #### L 100.0100, L500.2500 ####[facility] [address] [place], [address] IG% 0.200 Normal 0.0-0.9 [facility] Comment on above: Result Comment: IG% - Immature Granulocytes (promyelocytes, myelocytes andmetamyelocytes) > 1% indicates that a LEFT SHIFT is Present. Performed By: #### L 100.0100, L500.2500 ####[facility] [address] [place], [address] Lymphocytes/100 WBC (Bld) 5.2 % Low 19-41 [facility] Comment on above: Performed By: #### L 100.0100, L500.2500 ####[facility] [address] [place], [address] MCH (RBC) [Entitic mass] 28.6 pg Normal 27.0-32.0 [facility] Comment on above: Performed By: #### L 100.0100, L500.2500 ####[facility] [address] [place], [address] MCHC (RBC) [Mass/Vol] 32.8 g/dL Normal 32-36 [facility] Comment on above: Performed By: #### L 100.0100, L500.2500 ####[facility] [address] [place], [address] MCV (RBC) [Entitic vol] 87.2 fL Normal 80-94 [facility] Comment on above: Performed By: #### L 100.0100, L500.2500 ####[facility] [address] [place], [address] Monocytes/100 WBC (Bld) 7.8 % Normal 0-10 [facility] Comment on above: Performed By: #### L 100.0100, L500.2500 ####[facility] [address] [place], [address] Neutrophils/100 WBC (Bld) 84.8 % High 47-70 [facility] Comment on above: Performed By: #### L 100.0100, L500.2500 ####[facility] [address] [place], [address] Nucleated RBC (Bld) [#/Vol] 0 10*3/uL Normal 0-5 [facility] Comment on above: Performed By: #### L 100.0100, L500.2500 ####[facility] [address] [place], [address] Platelet mean volume (Bld) [Entitic vol] 10.0 fL Normal 6.2-12.0 [facility] Comment on above: Performed By: #### L 100.0100, L500.2500 ####[facility] [address] [place], [address] Platelets (Bld) [#/Vol] 183 10*3/uL Normal 150-450 [facility] Comment on above: Performed By: #### L 100.0100, L500.2500 ####[facility] [address] [place], [address] RBC (Bld) [#/Vol] 4.06 10*6/uL Low 4.6-6.2 [facility] Comment on above: Performed By: #### L 100.0100, L500.2500 ####[facility] [address] [place], [address] RDW SD 48.9 fl High 35.1-43.9 [facility] Comment on above: Performed By: #### L 100.0100, L500.2500 ####[facility] [address] [place], [address] WBC (Bld) [#/Vol] 8.5 10*3/uL Normal 4.4-11.0 [facility] Comment on above: Performed By: #### L 100.0100, L500.2500 ####[facility] [address] [place], [address] Ketones Test strip Ql (U)Ord ered By: Luis Carlos Gallardo on 04-05-2024 Ketones Ql (U) Negative Negative [facility] Protein Test strip Ql (U)Ord ered By: Luis Carlos Gallardo on 04-05-2024 Protein Ql (U) 30 mg/dl High Negative [facility] Urinalysis, Routine (Dipstic k)on 04-05-2024 BILIRUBIN URINE Negative Normal Negative [facility] Comment on above: Order Comment: SONALI ARRINGTONOR TO SPECIFY Performed By: #### L 400.2010 ####[facility] [address] [place], [address] GLUCOSE, UR Normal Normal Normal [facility] Comment on above: Order Comment: SONALI ARRINGTONOR TO SPECIFY Performed By: #### L 400.2010 ####[facility] [address] [place], [address] KETONE UR Negative Normal Negative [facility] Comment on above: Order Comment: COLLE CTOR TO SPECIFY Performed By: #### L 400.2010 ####[facility] [address] [place], [address] LEUK ESTERASE 500 /ul Abnormal Negative [facility] Comment on above: Order Comment: COLLE CTOR TO SPECIFY Performed By: #### L 400.2010 ####[facility] [address] [place], [address] OCCULT BLOOD-UR 150 /ul Abnormal Negative [facility] Comment on above: Order Comment: COLLE CTOR TO SPECIFY Performed By: #### L 400.2010 ####[facility] [address] [place], [address] pH UR 7.0 Normal 5.0 - 8.0 [facility] Comment on above: Order Comment: SONALI CTOR TO SPECIFY Performed By: #### L 400.2010 ####[facility] [address] [place], [address] PROT DIPSTX 30 mg/dl Abnormal Negative [facility] Comment on above: Order Comment: COLLE CTOR TO SPECIFY Performed By: #### L 400.2010 ####[facility] [address] [place], [address] SP.GR. DIPSTX 1.010 Normal 1.002-1.03 0 [facility] Comment on above: Order Comment: COLLE CTOR TO SPECIFY Performed By: #### L 400.2010 ####[facility] [address] [place], [address] UROBILI Normal Normal Normal [facility] Comment on above: Order Comment: COLLE CTOR TO SPECIFY Performed By: #### L 400.2010 ####[facility] [address] [place], [place], [address] Urine clarityOrdered By: Luis Carlos Gallardo on 04-05-2024 Clarity (U) Cloudy Normal Clear [facility] Comment on above: Order Comment: SONALI CTOR TO SPECIFY Performed By: #### L 400.2010 ####[facility] [address] [place], [place], [id number] Urine color determinationOrd ered By: Luis Carlos Gallardo on 04-05-2024 Color (U) Yellow Normal Yellow [facility] Comment on above: Order Comment: SONALI CTOR TO SPECIFY Performed By: #### L 400.2010 ####[facility] [address] [place], [place], [id number] Urine cultureOrdered By: Luis Carlos Gallardo on 04-05-2024 Bacteria identified Cx Nom (U) Pseudomonas fluorescens Abnormal [facility] Urine glucose detectionOrder ed By: Luis Carlos Gallardo on 04-05-2024 Glucose Ql (U) Normal mg/dl Normal [facility] Urine leukocyte esterase det ection by dipstickOrdered By: Luis Carlos Gallardo on 04-05-2024 Leukocyte esterase Test strip Ql (U) 500 /ul High Negative [facility] Urine nitrite test by dipsti ckOrdered By: Luis Carlos Gallardo on 04-05-2024 Nitrite Ql (U) Positive Abnormal Negative [facility] Comment on above: Order Comment: SONALI CTOR TO SPECIFY Performed By: #### L 400.2010 ####[facility] [address] [place], [place], [address] Urine pHOrdered By: Luis Carlos Gallardo on 04-05-2024 pH (U) 7.0 [pH] 5.0 - 8.0 [facility] Urine specific gravity measu rementOrdered By: Luis Carlos Gallardo on 04-05-2024 Specific gravity (U) [Rel density] 1.010 1.002-1.03 0 [facility] Urine urobilinogen measureme ntOrdered By: Luis Carlos Gallardo on 04-05-2024 Urobilinogen Ql (U) Normal mg/dl Normal [facility] Basic Metabolic Profile (BMP )on 04-04-2024 BUN/CRE 20.5 RATIO High 10-20 [facility] Comment on above: Performed By: #### L 100.0100, L500.2500 ####[facility] [address] [place], [address] CA,Total 9.7 mg/dL Normal 8.5-10.1 [facility] Comment on above: Performed By: #### L 100.0100, L500.2500 ####[facility] [address] [place], [address] Chloride [Moles/Vol] 108 mmol/L High 98-107 [facility] Comment on above: Performed By: #### L 100.0100, L500.2500 ####[facility] [address] [place], [address] CO2 [Moles/Vol] 26.0 mmol/L Normal 21.0-32.0 [facility] Comment on above: Performed By: #### L 100.0100, L500.2500 ####[facility] [address] [place], [address] Creatinine [Mass/Vol] 0.98 mg/dL Normal 0.70-1.30 [facility] Comment on above: Result Comment: The validity of the calculated GFR GFRAA in patients over70 years has not been determined. Clinical correlation isessential. Performed By: #### L 100.0100, L500.2500 ####[facility] [address] [place], [address] ECRCL 77.82 ml/min Normal [facility] Comment on above: Performed By: #### L 100.0100, L500.2500 ####[facility] [address] [place], [address] EST GFR - AA 96 mL/min Normal >60 [facility] Comment on above: Result Comment: Afri can Citizen [place] GFR Calc Performed By: #### L 100.0100, L500.2500 ####[facility] [address] [place], [address] GAP 5 Normal 5-15 [facility] Comment on above: Performed By: #### L 100.0100, L500.2500 ####[facility] [address] [place], [address] GFR/1.73 sq M.predicted among non-blacks MDRD (S/P/Bld) [Vol rate/Area] 79 mL/min/{1.73_m2} Normal >60 [facility] Comment on above: Result Comment: Non- GFR Calc Performed By: #### L 100.0100, L500.2500 ####[facility] [address] [place], [address] Glucose [Mass/Vol] 93 mg/dL Normal 74-106 [facility] Comment on above: Performed By: #### L 100.0100, L500.2500 ####[facility] [address] [place], [address] Potassium [Moles/Vol] 3.7 mmol/L Normal 3.5-5.1 [facility] Comment on above: Performed By: #### L 100.0100, L500.2500 ####[facility] [address] [place], [address] Sodium [Moles/Vol] 139 mmol/L Normal 136-145 [facility] Comment on above: Performed By: #### L 100.0100, L500.2500 ####[facility] [address] [place], [address] Urea nitrogen [Mass/Vol] 20 mg/dL High 7-18 [facility] Comment on above: Performed By: #### L 100.0100, L500.2500 ####[facility] [address] [place], [address] BUN Normal 7-18 [facility] Comment on above: Result Comment: Canc elled via OM: Order cancelled - Patient discharged Performed By: #### L 500.2500, L100.0100 ####[facility] [address] [place], [address] BUN/CRE Normal 10-20 [facility] Comment on above: Result Comment: Canc elled via OM: Order cancelled - Patient discharged Performed By: #### L 500.2500, L100.0100 ####[facility] [address] [place], [address] CA,Total Normal 8.5-10.1 [facility] Comment on above: Result Comment: Canc elled via OM: Order cancelled - Patient discharged Performed By: #### L 500.2500, L100.0100 ####[facility] [address] [place], [address] CL Normal 98-107 [facility] Comment on above: Result Comment: Canc elled via OM: Order cancelled - Patient discharged Performed By: #### L 500.2500, L100.0100 ####[facility] [address] [place], [address] CO2 Normal 21.0-32.0 [facility] Comment on above: Result Comment: Canc elled via OM: Order cancelled - Patient discharged Performed By: #### L 500.2500, L100.0100 ####[facility] [address] [place], [address] CREAT,SERUM Normal 0.70-1.30 [facility] Comment on above: Result Comment: Canc elled via OM: Order cancelled - Patient discharged Performed By: #### L 500.2500, L100.0100 ####[facility] [address] [place], [address] EST GFR Normal >60 [facility] Comment on above: Result Comment: Canc elled via OM: Order cancelled - Patient discharged Performed By: #### L 500.2500, L100.0100 ####[facility] [address] [place], [address] EST GFR - AA Normal >60 [facility] Comment on above: Result Comment: Canc elled via OM: Order cancelled - Patient discharged Performed By: #### L 500.2500, L100.0100 ####[facility] [address] [place], [address] GAP Normal 5-15 [facility] Comment on above: Result Comment: Canc elled via OM: Order cancelled - Patient discharged Performed By: #### L 500.2500, L100.0100 ####[facility] [address] [place], [address] GLU Normal 74-106 [facility] Comment on above: Result Comment: Canc elled via OM: Order cancelled - Patient discharged Performed By: #### L 500.2500, L100.0100 ####[facility] [address] [place], [address] Potassium Normal 3.5-5.1 [facility] Comment on above: Result Comment: Canc elled via OM: Order cancelled - Patient discharged Performed By: #### L 500.2500, L100.0100 ####[facility] [address] [place], [address] Basic Metabolic Profile (BMP) Normal 136-145 [facility] Comment on above: Result Comment: Canc elled via OM: Order cancelled - Patient discharged Performed By: #### L 500.2500, L100.0100 ####[facility] [address] [place], [address] CBC W/Diff, Automatedon 01-2 Absolute Neut Normal 2.0-7.7 [facility] Comment on above: Result Comment: Canc elled via OM: Order cancelled - Patient discharged Performed By: #### L 500.2500, L100.0100 ####[facility] [address] [place], [address] HCT Normal 40-54 [facility] Comment on above: Result Comment: Canc elled via OM: Order cancelled - Patient discharged Performed By: #### L 500.2500, L100.0100 ####[facility] [address] [place], [address] HGB Normal 13.0-16.5 [facility] Comment on above: Result Comment: Canc elled via OM: Order cancelled - Patient discharged Performed By: #### L 500.2500, L100.0100 ####[facility] [address] [place], [address] MCH Normal 27.0-32.0 [facility] Comment on above: Result Comment: Canc elled via OM: Order cancelled - Patient discharged Performed By: #### L 500.2500, L100.0100 ####[facility] [address] [place], [address] MCHC Normal 32-36 [facility] Comment on above: Result Comment: Canc elled via OM: Order cancelled - Patient discharged Performed By: #### L 500.2500, L100.0100 ####[facility] [address] [place], [address] MCV Normal 80-94 [facility] Comment on above: Result Comment: Canc elled via OM: Order cancelled - Patient discharged Performed By: #### L 500.2500, L100.0100 ####[facility] [address] [place], [address] NEUT% Normal 47-70 [facility] Comment on above: Result Comment: Canc elled via OM: Order cancelled - Patient discharged Performed By: #### L 500.2500, L100.0100 ####[facility] [address] [place], [address] PLT Normal 150-450 [facility] Comment on above: Result Comment: Canc elled via OM: Order cancelled - Patient discharged Performed By: #### L 500.2500, L100.0100 ####[facility] [address] [place], [address] RBC Normal 4.6-6.2 [facility] Comment on above: Result Comment: Canc elled via OM: Order cancelled - Patient discharged Performed By: #### L 500.2500, L100.0100 ####[facility] [address] [place], [address] RDW CV Normal 11.6-14.6 [facility] Comment on above: Result Comment: Canc elled via OM: Order cancelled - Patient discharged Performed By: #### L 500.2500, L100.0100 ####[facility] [address] [place], [address] RDW SD Normal 35.1-43.9 [facility] Comment on above: Result Comment: Canc elled via OM: Order cancelled - Patient discharged Performed By: #### L 500.2500, L100.0100 ####[facility] [address] [place], [address] WBC Normal 4.4-11.0 [facility] Comment on above: Result Comment: Canc elled via OM: Order cancelled - Patient discharged Performed By: #### L 500.2500, L100.0100 ####[facility] [address] [place], [address] Absolute Lymph 1.05 X10 3/uL Normal 0.83-4.51 [facility] Comment on above: Performed By: #### L 100.0100, L500.2500 ####[facility] [address] [place], [address] Absolute Neut 4.3 X10 3/uL Normal 2.0-7.7 [facility] Comment on above: Performed By: #### L 100.0100, L500.2500 ####[facility] [address] [place], [address] Basophils/100 WBC (Bld) 0.5 % Normal 0-1 [facility] Comment on above: Performed By: #### L 100.0100, L500.2500 ####[facility] [address] [place], [address] Eosinophils/100 WBC (Bld) 3.1 % Normal 0-5 [facility] Comment on above: Performed By: #### L 100.0100, L500.2500 ####[facility] [address] [place], [address] Erythrocyte distribution width (RBC) [Ratio] 15.3 % High 11.6-14.6 [facility] Comment on above: Performed By: #### L 100.0100, L500.2500 ####[facility] [address] [place], [address] Hematocrit (Bld) [Volume fraction] 33.2 % Low 40-54 [facility] Comment on above: Performed By: #### L 100.0100, L500.2500 ####[facility] [address] [place], [address] Hemoglobin (Bld) [Mass/Vol] 10.9 g/dL Low 13.0-16.5 [facility] Comment on above: Performed By: #### L 100.0100, L500.2500 ####[facility] [address] [place], [address] IG% 0.300 Normal 0.0-0.9 [facility] Comment on above: Result Comment: IG% - Immature Granulocytes (promyelocytes, myelocytes andmetamyelocytes) > 1% indicates that a LEFT SHIFT is Present. Performed By: #### L 100.0100, L500.2500 ####[facility] [address] [place], [address] Lymphocytes/100 WBC (Bld) 17.4 % Low 19-41 [facility] Comment on above: Performed By: #### L 100.0100, L500.2500 ####[facility] [address] [place], [address] MCH (RBC) [Entitic mass] 29.1 pg Normal 27.0-32.0 [facility] Comment on above: Performed By: #### L 100.0100, L500.2500 ####[facility] [address] [place], [address] MCHC (RBC) [Mass/Vol] 32.8 g/dL Normal 32-36 [facility] Comment on above: Performed By: #### L 100.0100, L500.2500 ####[facility] [address] [place], [address] MCV (RBC) [Entitic vol] 88.5 fL Normal 80-94 [facility] Comment on above: Performed By: #### L 100.0100, L500.2500 ####[facility] [address] [place], [address] Monocytes/100 WBC (Bld) 7.9 % Normal 0-10 [facility] Comment on above: Performed By: #### L 100.0100, L500.2500 ####[facility] [address] [place], [address] Neutrophils/100 WBC (Bld) 70.8 % High 47-70 [facility] Comment on above: Performed By: #### L 100.0100, L500.2500 ####[facility] [address] [place], [address] Nucleated RBC (Bld) [#/Vol] 0 10*3/uL Normal 0-5 [facility] Comment on above: Performed By: #### L 100.0100, L500.2500 ####[facility] [address] [place], [address] Platelet mean volume (Bld) [Entitic vol] 10.2 fL Normal 6.2-12.0 [facility] Comment on above: Performed By: #### L 100.0100, L500.2500 ####[facility] [address] [place], [address] Platelets (Bld) [#/Vol] 183 10*3/uL Normal 150-450 [facility] Comment on above: Performed By: #### L 100.0100, L500.2500 ####[facility] [address] [place], [address] RBC (Bld) [#/Vol] 3.75 10*6/uL Low 4.6-6.2 [facility] Comment on above: Performed By: #### L 100.0100, L500.2500 ####[facility] [address] [place], [address] RDW SD 49.2 fl High 35.1-43.9 [facility] Comment on above: Performed By: #### L 100.0100, L500.2500 ####[facility] [address] [place], [address] WBC (Bld) [#/Vol] 6.0 10*3/uL Normal 4.4-11.0 [facility] Comment on above: Performed By: #### L 100.0100, L500.2500 ####[facility] [address] [place], [address] Abdomen Single Viewon 2024 Abdomen Single View Normal [facility] Culture, Blood (WB)on 2024 CUB No growth in 5 days. Normal [facility] Comment on above: Performed By: #### M 200.1000 ####[facility] [address] [place], [address] Urine Cultureon 03-30-2024 URC Normal [facility] Comment on above: Performed By: #### M 100.2200 ####[facility] [address] [place], [address] Culture, Blood (WB)on 2024 CUB Only aerobic bottle was collected in this set. KARTHIKEYAN No growth in 5 days. Normal [facility] Comment on above: Performed By: #### L 100.0100, L500.4050, M200.1000 ####[facility] [address] [place], [address] Basic Metabolic Profile (BMP )on 03-28-2024 BUN/CRE 16.5 RATIO Normal 10-20 [facility] Comment on above: Performed By: #### L 100.0100, L500.2500 ####[facility] [address] [place], [address] CA,Total 8.5 mg/dL Normal 8.5-10.1 [facility] Comment on above: Performed By: #### L 100.0100, L500.2500 ####[facility] [address] [place], [address] Chloride [Moles/Vol] 110 mmol/L High 98-107 [facility] Comment on above: Performed By: #### L 100.0100, L500.2500 ####[facility] [address] [place], [address] CO2 [Moles/Vol] 26.0 mmol/L Normal 21.0-32.0 [facility] Comment on above: Performed By: #### L 100.0100, L500.2500 ####[facility] [address] [place], [address] Creatinine [Mass/Vol] 0.85 mg/dL Normal 0.70-1.30 [facility] Comment on above: Result Comment: The validity of the calculated GFR GFRAA in patients over70 years has not been determined. Clinical correlation isessential. Performed By: #### L 100.0100, L500.2500 ####[facility] [address] [place], [address] ECRCL 89.73 ml/min Normal [facility] Comment on above: Performed By: #### L 100.0100, L500.2500 ####[facility] [address] [place], [address] EST GFR - AA 113 mL/min Normal >60 [facility] Comment on above: Result Comment: Afri can [place] GFR Calc Performed By: #### L 100.0100, L500.2500 ####[facility] [address] [place], [address] GAP 2 Low 5-15 [facility] Comment on above: Performed By: #### L 100.0100, L500.2500 ####[facility] [address] [place], [address] GFR/1.73 sq M.predicted among non-blacks MDRD (S/P/Bld) [Vol rate/Area] 93 mL/min/{1.73_m2} Normal >60 [facility] Comment on above: Result Comment: Non- GFR Calc Performed By: #### L 100.0100, L500.2500 ####[facility] [address] [place], [address] Glucose [Mass/Vol] 92 mg/dL Normal 74-106 [facility] Comment on above: Performed By: #### L 100.0100, L500.2500 ####[facility] [address] [place], [address] Potassium [Moles/Vol] 3.5 mmol/L Normal 3.5-5.1 [facility] Comment on above: Performed By: #### L 100.0100, L500.2500 ####[facility] [address] [place], [address] Sodium [Moles/Vol] 138 mmol/L Normal 136-145 [facility] Comment on above: Performed By: #### L 100.0100, L500.2500 ####[facility] [address] [place], [address] Urea nitrogen [Mass/Vol] 14 mg/dL Normal 7-18 [facility] Comment on above: Performed By: #### L 100.0100, L500.2500 ####[facility] [address] [place], [address] BUN Normal 7-18 [facility] Comment on above: Result Comment: Canc elled via OM: Order cancelled - Patient discharged Performed By: #### L 500.2500, L100.0100 ####[facility] [address] [place], [address] BUN/CRE Normal 10-20 [facility] Comment on above: Result Comment: Canc elled via OM: Order cancelled - Patient discharged Performed By: #### L 500.2500, L100.0100 ####[facility] [address] [place], [address] CA,Total Normal 8.5-10.1 [facility] Comment on above: Result Comment: Canc elled via OM: Order cancelled - Patient discharged Performed By: #### L 500.2500, L100.0100 ####[facility] [address] [place], [address] CL Normal 98-107 [facility] Comment on above: Result Comment: Canc elled via OM: Order cancelled - Patient discharged Performed By: #### L 500.2500, L100.0100 ####[facility] [address] [place], [address] CO2 Normal 21.0-32.0 [facility] Comment on above: Result Comment: Canc elled via OM: Order cancelled - Patient discharged Performed By: #### L 500.2500, L100.0100 ####[facility] [address] [place], [address] CREAT,SERUM Normal 0.70-1.30 [facility] Comment on above: Result Comment: Canc elled via OM: Order cancelled - Patient discharged Performed By: #### L 500.2500, L100.0100 ####[facility] [address] [place], [address] EST GFR Normal >60 [facility] Comment on above: Result Comment: Canc elled via OM: Order cancelled - Patient discharged Performed By: #### L 500.2500, L100.0100 ####[facility] [address] [place], [address] EST GFR - AA Normal >60 [facility] Comment on above: Result Comment: Canc elled via OM: Order cancelled - Patient discharged Performed By: #### L 500.2500, L100.0100 ####[facility] [address] [place], [address] GAP Normal 5-15 [facility] Comment on above: Result Comment: Canc elled via OM: Order cancelled - Patient discharged Performed By: #### L 500.2500, L100.0100 ####[facility] [address] [place], [address] GLU Normal 74-106 [facility] Comment on above: Result Comment: Canc elled via OM: Order cancelled - Patient discharged Performed By: #### L 500.2500, L100.0100 ####[facility] [address] [place], [address] Potassium Normal 3.5-5.1 [facility] Comment on above: Result Comment: Canc elled via OM: Order cancelled - Patient discharged Performed By: #### L 500.2500, L100.0100 ####[facility] [address] [place], [address] Basic Metabolic Profile (BMP) Normal 136-145 [facility] Comment on above: Result Comment: Canc elled via OM: Order cancelled - Patient discharged Performed By: #### L 500.2500, L100.0100 ####[facility] [address] [place], [address] CBC W/Diff, Automatedon 03-15 Absolute Lymph 0.91 X10 3/uL Normal 0.83-4.51 [facility] Comment on above: Performed By: #### L 100.0100, L500.2500 ####[facility] [address] [place], [address] Absolute Neut 3.7 X10 3/uL Normal 2.0-7.7 [facility] Comment on above: Performed By: #### L 100.0100, L500.2500 ####[facility] [address] [place], [address] Basophils/100 WBC (Bld) 0.7 % Normal 0-1 [facility] Comment on above: Performed By: #### L 100.0100, L500.2500 ####[facility] [address] [place], [address] Eosinophils/100 WBC (Bld) 4.3 % Normal 0-5 [facility] Comment on above: Performed By: #### L 100.0100, L500.2500 ####[facility] [address] [place], [address] Erythrocyte distribution width (RBC) [Ratio] 15.0 % High 11.6-14.6 [facility] Comment on above: Performed By: #### L 100.0100, L500.2500 ####[facility] [address] [place], [address] Hematocrit (Bld) [Volume fraction] 30.4 % Low 40-54 [facility] Comment on above: Performed By: #### L 100.0100, L500.2500 ####[facility] [address] [place], [address] Hemoglobin (Bld) [Mass/Vol] 9.9 g/dL Low 13.0-16.5 [facility] Comment on above: Performed By: #### L 100.0100, L500.2500 ####[facility] [address] [place], [address] IG% 0.400 Normal 0.0-0.9 [facility] Comment on above: Result Comment: IG% - Immature Granulocytes (promyelocytes, myelocytes andmetamyelocytes) > 1% indicates that a LEFT SHIFT is Present. Performed By: #### L 100.0100, L500.2500 ####[facility] [address] [place], [address] Lymphocytes/100 WBC (Bld) 16.9 % Low 19-41 [facility] Comment on above: Performed By: #### L 100.0100, L500.2500 ####[facility] [address] [place], [address] MCH (RBC) [Entitic mass] 28.6 pg Normal 27.0-32.0 [facility] Comment on above: Performed By: #### L 100.0100, L500.2500 ####[facility] [address] [place], [address] MCHC (RBC) [Mass/Vol] 32.6 g/dL Normal 32-36 [facility] Comment on above: Performed By: #### L 100.0100, L500.2500 ####[facility] [address] [place], [address] MCV (RBC) [Entitic vol] 87.9 fL Normal 80-94 [facility] Comment on above: Performed By: #### L 100.0100, L500.2500 ####[facility] [address] [place], [address] Monocytes/100 WBC (Bld) 10.0 % Normal 0-10 [facility] Comment on above: Performed By: #### L 100.0100, L500.2500 ####[facility] [address] [place], [address] Neutrophils/100 WBC (Bld) 67.7 % Normal 47-70 [facility] Comment on above: Performed By: #### L 100.0100, L500.2500 ####[facility] [address] [place], [address] Nucleated RBC (Bld) [#/Vol] 0 10*3/uL Normal 0-5 [facility] Comment on above: Performed By: #### L 100.0100, L500.2500 ####[facility] [address] [place], [address] Platelet mean volume (Bld) [Entitic vol] 10.0 fL Normal 6.2-12.0 [facility] Comment on above: Performed By: #### L 100.0100, L500.2500 ####[facility] [address] [place], [address] Platelets (Bld) [#/Vol] 167 10*3/uL Normal 150-450 [facility] Comment on above: Performed By: #### L 100.0100, L500.2500 ####[facility] [address] [place], [address] RBC (Bld) [#/Vol] 3.46 10*6/uL Low 4.6-6.2 [facility] Comment on above: Performed By: #### L 100.0100, L500.2500 ####[facility] [address] [place], [address] RDW SD 47.9 fl High 35.1-43.9 [facility] Comment on above: Performed By: #### L 100.0100, L500.2500 ####[facility] [address] [place], [address] WBC (Bld) [#/Vol] 5.4 10*3/uL Normal 4.4-11.0 [facility] Comment on above: Performed By: #### L 100.0100, L500.2500 ####[facility] [address] [place], [address] Absolute Neut Normal 2.0-7.7 [facility] Comment on above: Result Comment: Canc elled via OM: Order cancelled - Patient discharged Performed By: #### L 500.2500, L100.0100 ####[facility] [address] [place], [address] HCT Normal 40-54 [facility] Comment on above: Result Comment: Canc elled via OM: Order cancelled - Patient discharged Performed By: #### L 500.2500, L100.0100 ####[facility] [address] [place], [address] HGB Normal 13.0-16.5 [facility] Comment on above: Result Comment: Canc elled via OM: Order cancelled - Patient discharged Performed By: #### L 500.2500, L100.0100 ####[facility] [address] [place], [address] MCH Normal 27.0-32.0 [facility] Comment on above: Result Comment: Canc elled via OM: Order cancelled - Patient discharged Performed By: #### L 500.2500, L100.0100 ####[facility] [address] [place], [address] MCHC Normal 32-36 [facility] Comment on above: Result Comment: Canc elled via OM: Order cancelled - Patient discharged Performed By: #### L 500.2500, L100.0100 ####[facility] [address] [place], [address] MCV Normal 80-94 [facility] Comment on above: Result Comment: Canc elled via OM: Order cancelled - Patient discharged Performed By: #### L 500.2500, L100.0100 ####[facility] [address] [place], [address] NEUT% Normal 47-70 [facility] Comment on above: Result Comment: Canc elled via OM: Order cancelled - Patient discharged Performed By: #### L 500.2500, L100.0100 ####[facility] [address] [place], [address] PLT Normal 150-450 [facility] Comment on above: Result Comment: Canc elled via OM: Order cancelled - Patient discharged Performed By: #### L 500.2500, L100.0100 ####[facility] [address] [place], [address] RBC Normal 4.6-6.2 [facility] Comment on above: Result Comment: Canc elled via OM: Order cancelled - Patient discharged Performed By: #### L 500.2500, L100.0100 ####[facility] [address] [place], [address] RDW CV Normal 11.6-14.6 [facility] Comment on above: Result Comment: Canc elled via OM: Order cancelled - Patient discharged Performed By: #### L 500.2500, L100.0100 ####[facility] [address] [place], [address] RDW SD Normal 35.1-43.9 [facility] Comment on above: Result Comment: Canc elled via OM: Order cancelled - Patient discharged Performed By: #### L 500.2500, L100.0100 ####[facility] [address] [place], [address] WBC Normal 4.4-11.0 [facility] Comment on above: Result Comment: Canc elled via OM: Order cancelled - Patient discharged Performed By: #### L 500.2500, L100.0100 ####[facility] [address] [place], [address] Culture, Blood (WB)on 2024 CUB Blood cultures x2, f rom two different sites No growth in 5 days. Normal [facility] Comment on above: Performed By: #### L 100.0100, L500.4050, L503.6005, M200.1000 ####[facility] [address] [place], [address] CUB LEFT WRIST Blood cultures x2, from two different sites No growth in 5 days. Normal [facility] Comment on above: Performed By: #### M 200.1000 ####[facility] [address] [place], [address] Basic Metabolic Profile (BMP )on 03-27-2024 BUN/CRE 13.2 RATIO Normal 10-20 [facility] Comment on above: Performed By: #### L 100.0100, L300.3900, L500.2500, L501.5200 ####[facility] [address] [place], [address] CA,Total 8.6 mg/dL Normal 8.5-10.1 [facility] Comment on above: Performed By: #### L 100.0100, L300.3900, L500.2500, L501.5200 ####[facility] [address] [place], [address] Chloride [Moles/Vol] 110 mmol/L High 98-107 [facility] Comment on above: Performed By: #### L 100.0100, L300.3900, L500.2500, L501.5200 ####[facility] [address] [place], [address] CO2 [Moles/Vol] 23.0 mmol/L Normal 21.0-32.0 [facility] Comment on above: Performed By: #### L 100.0100, L300.3900, L500.2500, L501.5200 ####[facility] [address] [place], [address] Creatinine [Mass/Vol] 0.83 mg/dL Normal 0.70-1.30 [facility] Comment on above: Result Comment: The validity of the calculated GFR GFRAA in patients over70 years has not been determined. Clinical correlation isessential. Performed By: #### L 100.0100, L300.3900, L500.2500, L501.5200 ####[facility] [address] [place], [address] ECRCL 90.60 ml/min Normal [facility] Comment on above: Performed By: #### L 100.0100, L300.3900, L500.2500, L501.5200 ####[facility] [address] [place], [address] EST GFR - AA 115 mL/min Normal >60 [facility] Comment on above: Result Comment: Afri can [place] GFR Calc Performed By: #### L 100.0100, L300.3900, L500.2500, L501.5200 ####[facility] [address] [place], [address] GAP 6 Normal 5-15 [facility] Comment on above: Performed By: #### L 100.0100, L300.3900, L500.2500, L501.5200 ####[facility] [address] [place], [address] GFR/1.73 sq M.predicted among non-blacks MDRD (S/P/Bld) [Vol rate/Area] 95 mL/min/{1.73_m2} Normal >60 [facility] Comment on above: Result Comment: Non- GFR Calc Performed By: #### L 100.0100, L300.3900, L500.2500, L501.5200 ####[facility] [address] [place], [address] Glucose [Mass/Vol] 88 mg/dL Normal 74-106 [facility] Comment on above: Performed By: #### L 100.0100, L300.3900, L500.2500, L501.5200 ####[facility] [address] [place], [address] Potassium [Moles/Vol] 3.4 mmol/L Low 3.5-5.1 [facility] Comment on above: Performed By: #### L 100.0100, L300.3900, L500.2500, L501.5200 ####[facility] [address] [place], [address] Sodium [Moles/Vol] 139 mmol/L Normal 136-145 [facility] Comment on above: Performed By: #### L 100.0100, L300.3900, L500.2500, L501.5200 ####[facility] [address] [place], [address] Urea nitrogen [Mass/Vol] 11 mg/dL Normal 7-18 [facility] Comment on above: Performed By: #### L 100.0100, L300.3900, L500.2500, L501.5200 ####[facility] [address] [place], [address] CBC W/Diff, Automatedon -03 17-2024 Absolute Lymph 0.96 X10 3/uL Normal 0.83-4.51 [facility] Comment on above: Performed By: #### L 100.0100, L300.3900, L500.2500, L501.5200 ####[facility] [address] [place], [address] Absolute Neut 3.6 X10 3/uL Normal 2.0-7.7 [facility] Comment on above: Performed By: #### L 100.0100, L300.3900, L500.2500, L501.5200 ####[facility] [address] [place], [address] Basophils/100 WBC (Bld) 0.6 % Normal 0-1 [facility] Comment on above: Performed By: #### L 100.0100, L300.3900, L500.2500, L501.5200 ####[facility] [address] [place], [address] Eosinophils/100 WBC (Bld) 4.2 % Normal 0-5 [facility] Comment on above: Performed By: #### L 100.0100, L300.3900, L500.2500, L501.5200 ####[facility] [address] [place], [address] Erythrocyte distribution width (RBC) [Ratio] 14.9 % High 11.6-14.6 [facility] Comment on above: Performed By: #### L 100.0100, L300.3900, L500.2500, L501.5200 ####[facility] [address] [place], [address] Hematocrit (Bld) [Volume fraction] 31.5 % Low 40-54 [facility] Comment on above: Performed By: #### L 100.0100, L300.3900, L500.2500, L501.5200 ####[facility] [address] [place], [address] Hemoglobin (Bld) [Mass/Vol] 10.0 g/dL Low 13.0-16.5 [facility] Comment on above: Performed By: #### L 100.0100, L300.3900, L500.2500, L501.5200 ####[facility] [address] [place], [address] IG% 0.200 Normal 0.0-0.9 [facility] Comment on above: Result Comment: IG% - Immature Granulocytes (promyelocytes, myelocytes andmetamyelocytes) > 1% indicates that a LEFT SHIFT is Present. Performed By: #### L 100.0100, L300.3900, L500.2500, L501.5200 ####[facility] [address] [place], [address] Lymphocytes/100 WBC (Bld) 18.3 % Low 19-41 [facility] Comment on above: Performed By: #### L 100.0100, L300.3900, L500.2500, L501.5200 ####[facility] [address] [place], [address] MCH (RBC) [Entitic mass] 27.5 pg Normal 27.0-32.0 [facility] Comment on above: Performed By: #### L 100.0100, L300.3900, L500.2500, L501.5200 ####[facility] [address] [place], [address] MCHC (RBC) [Mass/Vol] 31.7 g/dL Low 32-36 [facility] Comment on above: Performed By: #### L 100.0100, L300.3900, L500.2500, L501.5200 ####[facility] [address] [place], [address] MCV (RBC) [Entitic vol] 86.8 fL Normal 80-94 [facility] Comment on above: Performed By: #### L 100.0100, L300.3900, L500.2500, L501.5200 ####[facility] [address] [place], [address] Monocytes/100 WBC (Bld) 9.0 % Normal 0-10 [facility] Comment on above: Performed By: #### L 100.0100, L300.3900, L500.2500, L501.5200 ####[facility] [address] [place], [address] Neutrophils/100 WBC (Bld) 67.7 % Normal 47-70 [facility] Comment on above: Performed By: #### L 100.0100, L300.3900, L500.2500, L501.5200 ####[facility] [address] [place], [address] Nucleated RBC (Bld) [#/Vol] 0 10*3/uL Normal 0-5 [facility] Comment on above: Performed By: #### L 100.0100, L300.3900, L500.2500, L501.5200 ####[facility] [address] [place], [address] Platelet mean volume (Bld) [Entitic vol] 9.6 fL Normal 6.2-12.0 [facility] Comment on above: Performed By: #### L 100.0100, L300.3900, L500.2500, L501.5200 ####[facility] [address] [place], [address] Platelets (Bld) [#/Vol] 166 10*3/uL Normal 150-450 [facility] Comment on above: Performed By: #### L 100.0100, L300.3900, L500.2500, L501.5200 ####[facility] [address] [place], [address] RBC (Bld) [#/Vol] 3.63 10*6/uL Low 4.6-6.2 [facility] Comment on above: Performed By: #### L 100.0100, L300.3900, L500.2500, L501.5200 ####[facility] [address] [place], [address] RDW SD 47.6 fl High 35.1-43.9 [facility] Comment on above: Performed By: #### L 100.0100, L300.3900, L500.2500, L501.5200 ####[facility] [address] [place], [address] WBC (Bld) [#/Vol] 5.2 10*3/uL Normal 4.4-11.0 [facility] Comment on above: Performed By: #### L 100.0100, L300.3900, L500.2500, L501.5200 ####[facility] [address] [place], [address] Magnesiumon 03-27-2024 Magnesium [Mass/Vol] 2.1 mg/dL Normal 1.6-2.6 [facility] Comment on above: Performed By: #### L 100.0100, L300.3900, L500.2500, L501.5200 ####[facility] [address] [place], [address] Prothrombin Time w/INRon INR Coag (PPP) [Relative time] 1.4 {INR} Normal [facility] Comment on above: Performed By: #### L 100.0100, L300.3900, L500.2500, L501.5200 ####[facility] [address] [place], [address] PT Coag (PPP) [Time] 17.0 s High 11.7-14.9 [facility] Comment on above: Performed By: #### L 100.0100, L300.3900, L500.2500, L501.5200 ####[facility] [address] [place], [address] Culture, Blood (WB)on 2024 CUB Normal [facility] Comment on above: Performed By: #### L 500.2500, L100.0100, M200.1000 ####[facility] [address] [place], [address] Abdomen/Pelvis WITH Contrast on 03-24-2024 Abdomen/Pelvis WITH Contrast Normal [facility] CBC W/Diff, Automatedon 03-15 Absolute Lymph 0.84 X10 3/uL Normal 0.83-4.51 [facility] Comment on above: Performed By: #### L 100.0100, L500.4050, M200.1000 ####[facility] [address] [place], [address] Absolute Neut 4.8 X10 3/uL Normal 2.0-7.7 [facility] Comment on above: Performed By: #### L 100.0100, L500.4050, M200.1000 ####[facility] [address] [place], [address] Basophils/100 WBC (Bld) 0.3 % Normal 0-1 [facility] Comment on above: Performed By: #### L 100.0100, L500.4050, M200.1000 ####[facility] [address] [place], [address] Eosinophils/100 WBC (Bld) 1.4 % Normal 0-5 [facility] Comment on above: Performed By: #### L 100.0100, L500.4050, M200.1000 ####[facility] [address] [place], [address] Erythrocyte distribution width (RBC) [Ratio] 15.8 % High 11.6-14.6 [facility] Comment on above: Performed By: #### L 100.0100, L500.4050, M200.1000 ####[facility] [address] [place], [address] Hematocrit (Bld) [Volume fraction] 28.8 % Low 40-54 [facility] Comment on above: Performed By: #### L 100.0100, L500.4050, M200.1000 ####[facility] [address] [place], [address] Hemoglobin (Bld) [Mass/Vol] 9.4 g/dL Low 13.0-16.5 [facility] Comment on above: Performed By: #### L 100.0100, L500.4050, M200.1000 ####[facility] [address] [place], [address] IG% 0.500 Normal 0.0-0.9 [facility] Comment on above: Result Comment: IG% - Immature Granulocytes (promyelocytes, myelocytes andmetamyelocytes) > 1% indicates that a LEFT SHIFT is Present. Performed By: #### L 100.0100, L500.4050, M200.1000 ####[facility] [address] [place], [address] Lymphocytes/100 WBC (Bld) 13.0 % Low 19-41 [facility] Comment on above: Performed By: #### L 100.0100, L500.4050, M200.1000 ####[facility] [address] [place], [address] MCH (RBC) [Entitic mass] 28.5 pg Normal 27.0-32.0 [facility] Comment on above: Performed By: #### L 100.0100, L500.4050, M200.1000 ####[facility] [address] [place], [address] MCHC (RBC) [Mass/Vol] 32.6 g/dL Normal 32-36 [facility] Comment on above: Performed By: #### L 100.0100, L500.4050, M200.1000 ####[facility] [address] [place], [address] MCV (RBC) [Entitic vol] 87.3 fL Normal 80-94 [facility] Comment on above: Performed By: #### L 100.0100, L500.4050, M200.1000 ####[facility] [address] [place], [address] Monocytes/100 WBC (Bld) 10.7 % High 0-10 [facility] Comment on above: Performed By: #### L 100.0100, L500.4050, M200.1000 ####[facility] [address] [place], [address] Neutrophils/100 WBC (Bld) 74.1 % High 47-70 [facility] Comment on above: Performed By: #### L 100.0100, L500.4050, M200.1000 ####[facility] [address] [place], [address] Nucleated RBC (Bld) [#/Vol] 0 10*3/uL Normal 0-5 [facility] Comment on above: Performed By: #### L 100.0100, L500.4050, M200.1000 ####[facility] [address] [place], [address] Platelet mean volume (Bld) [Entitic vol] 9.8 fL Normal 6.2-12.0 [facility] Comment on above: Performed By: #### L 100.0100, L500.4050, M200.1000 ####[facility] [address] [place], [address] Platelets (Bld) [#/Vol] 137 10*3/uL Low 150-450 [facility] Comment on above: Performed By: #### L 100.0100, L500.4050, M200.1000 ####[facility] [address] [place], [address] RBC (Bld) [#/Vol] 3.30 10*6/uL Low 4.6-6.2 [facility] Comment on above: Performed By: #### L 100.0100, L500.4050, M200.1000 ####[facility] [address] [place], [address] RDW SD 50.2 fl High 35.1-43.9 [facility] Comment on above: Performed By: #### L 100.0100, L500.4050, M200.1000 ####[facility] [address] [place], [address] WBC (Bld) [#/Vol] 6.5 10*3/uL Normal 4.4-11.0 [facility] Comment on above: Performed By: #### L 100.0100, L500.4050, M200.1000 ####[facility] [address] [place], [address] [facility] 03-24-2024 Albumin [Mass/Vol] 2.6 g/dL Low 3.2-5.0 [facility] Comment on above: Performed By: #### L 100.0100, L500.4050, M200.1000 ####[facility] [address] [place], [address] Albumin/Globulin [Mass ratio] 0.7 {ratio} Low 0.9-2.4 [facility] Comment on above: Performed By: #### L 100.0100, L500.4050, M200.1000 ####[facility] [address] [place], [address] ALK P 51 U/L Normal 45-117 [facility] Comment on above: Performed By: #### L 100.0100, L500.4050, M200.1000 ####[facility] [address] [place], [address] ALT [Catalytic activity/Vol] 14 U/L Low 16-61 [facility] Comment on above: Performed By: #### L 100.0100, L500.4050, M200.1000 ####[facility] [address] [place], [address] AST [Catalytic activity/Vol] 13 U/L Low 15-37 [facility] Comment on above: Performed By: #### L 100.0100, L500.4050, M200.1000 ####[facility] [address] [place], [address] Bilirubin [Mass/Vol] 0.80 mg/dL Normal 0.20-1.00 [facility] Comment on above: Result Comment: For patients on eltrombopag therapy, use of Dimension [place] TBIL is not recommended. Performed By: #### L 100.0100, L500.4050, M200.1000 ####[facility] [address] [place], [address] BUN/CRE 21.7 RATIO High 10-20 [facility] Comment on above: Performed By: #### L 100.0100, L500.4050, M200.1000 ####[facility] [address] [place], [address] CA,Total 8.0 mg/dL Low 8.5-10.1 [facility] Comment on above: Performed By: #### L 100.0100, L500.4050, M200.1000 ####[facility] [address] [place], [address] Chloride [Moles/Vol] 111 mmol/L High 98-107 [facility] Comment on above: Performed By: #### L 100.0100, L500.4050, M200.1000 ####[facility] [address] [place], [address] CO2 [Moles/Vol] 22.0 mmol/L Normal 21.0-32.0 [facility] Comment on above: Performed By: #### L 100.0100, L500.4050, M200.1000 ####[facility] [address] [place], [address] Creatinine [Mass/Vol] 0.87 mg/dL Normal 0.70-1.30 [facility] Comment on above: Result Comment: The validity of the calculated GFR GFRAA in patients over70 years has not been determined. Clinical correlation isessential. Performed By: #### L 100.0100, L500.4050, M200.1000 ####[facility] [address] [place], [address] ECRCL 86.11 ml/min Normal [facility] Comment on above: Performed By: #### L 100.0100, L500.4050, M200.1000 ####[facility] [address] [place], [address] EST GFR - AA 109 mL/min Normal >60 [facility] Comment on above: Result Comment: Afri can Citizen [place] GFR Calc Performed By: #### L 100.0100, L500.4050, M200.1000 ####[facility] [address] [place], [address] GAP 5 Normal 5-15 [facility] Comment on above: Performed By: #### L 100.0100, L500.4050, M200.1000 ####[facility] [address] [place], [address] GFR/1.73 sq M.predicted among non-blacks MDRD (S/P/Bld) [Vol rate/Area] 90 mL/min/{1.73_m2} Normal >60 [facility] Comment on above: Result Comment: Non- GFR Calc Performed By: #### L 100.0100, L500.4050, M200.1000 ####[facility] [address] [place], [address] Globulin (S) [Mass/Vol] 3.9 g/dL Normal 2.2-4.2 [facility] Comment on above: Performed By: #### L 100.0100, L500.4050, M200.1000 ####[facility] [address] [place], [address] Glucose [Mass/Vol] 95 mg/dL Normal 74-106 [facility] Comment on above: Performed By: #### L 100.0100, L500.4050, M200.1000 ####[facility] [address] [place], [address] Potassium [Moles/Vol] 3.6 mmol/L Normal 3.5-5.1 [facility] Comment on above: Performed By: #### L 100.0100, L500.4050, M200.1000 ####[facility] [address] [place], [address] Sodium [Moles/Vol] 138 mmol/L Normal 136-145 [facility] Comment on above: Performed By: #### L 100.0100, L500.4050, M200.1000 ####[facility] [address] [place], [address] T PROT 6.5 g/dL Normal 6.4-8.2 [facility] Comment on above: Performed By: #### L 100.0100, L500.4050, M200.1000 ####[facility] [address] [place], [address] Urea nitrogen [Mass/Vol] 19 mg/dL High 7-18 [facility] Comment on above: Performed By: #### L 100.0100, L500.4050, M200.1000 ####[facility] [address] [place], [address] Gentamicin, Randomon 025 GENT.RANDOM 3.2 ug/mL Normal [facility] Comment on above: Order Comment: Comme nts: PLEASE DRAW CLOSE TO 0100 POSSIBLE :) Result Comment: [place] om level based on once daily dose of antibiotic.Please contact Pharmacy Services (#[phone]) for interpretationof results.This result does not represent either a peak or a troughlevel for this drug. Performed By: #### L 501.8650 ####[facility] [address] [place], [address] M8200.1000on 03-24-2024 M8200.1000 Normal [facility] Comment on above: Performed By: #### M 8200.1000 ####[facility] [address] [place], [address] Phosphoruson 03-24-2024 Phosphate [Mass/Vol] 2.8 mg/dL Normal 2.5-4.9 [facility] Comment on above: Performed By: #### L 501.2300 ####[facility] [address] [place], [address] 12 Lead EKGon 03-23-2024 12 Lead EKG Normal [facility] CBC W/Diff, Automatedon Absolute Lymph 0.29 X10 3/uL Low 0.83-4.51 [facility] Comment on above: Performed By: #### L 100.0100, L500.4050, L503.6005, M200.1000 ####[facility] [address] [place], [address] Absolute Neut 8.9 X10 3/uL High 2.0-7.7 [facility] Comment on above: Performed By: #### L 100.0100, L500.4050, L503.6005, M200.1000 ####[facility] [address] [place], [address] Basophils/100 WBC (Bld) 0.3 % Normal 0-1 [facility] Comment on above: Performed By: #### L 100.0100, L500.4050, L503.6005, M200.1000 ####[facility] [address] [place], [address] Eosinophils/100 WBC (Bld) 0.1 % Normal 0-5 [facility] Comment on above: Performed By: #### L 100.0100, L500.4050, L503.6005, M200.1000 ####[facility] [address] [place], [address] Erythrocyte distribution width (RBC) [Ratio] 15.7 % High 11.6-14.6 [facility] Comment on above: Performed By: #### L 100.0100, L500.4050, L503.6005, M200.1000 ####[facility] [address] [place], [address] Hematocrit (Bld) [Volume fraction] 33.0 % Low 40-54 [facility] Comment on above: Performed By: #### L 100.0100, L500.4050, L503.6005, M200.1000 ####[facility] [address] [place], [address] Hemoglobin (Bld) [Mass/Vol] 10.4 g/dL Low 13.0-16.5 [facility] Comment on above: Performed By: #### L 100.0100, L500.4050, L503.6005, M200.1000 ####[facility] [address] [place], [address] IG% 0.200 Normal 0.0-0.9 [facility] Comment on above: Result Comment: IG% - Immature Granulocytes (promyelocytes, myelocytes andmetamyelocytes) > 1% indicates that a LEFT SHIFT is Present. Performed By: #### L 100.0100, L500.4050, L503.6005, M200.1000 ####[facility] [address] [place], [address] Lymphocytes/100 WBC (Bld) 3.0 % Low 19-41 [facility] Comment on above: Performed By: #### L 100.0100, L500.4050, L503.6005, M200.1000 ####[facility] [address] [place], [address] MCH (RBC) [Entitic mass] 27.6 pg Normal 27.0-32.0 [facility] Comment on above: Performed By: #### L 100.0100, L500.4050, L503.6005, M200.1000 ####[facility] [address] [place], [address] MCHC (RBC) [Mass/Vol] 31.5 g/dL Low 32-36 [facility] Comment on above: Performed By: #### L 100.0100, L500.4050, L503.6005, M200.1000 ####[facility] [address] [place], [address] MCV (RBC) [Entitic vol] 87.5 fL Normal 80-94 [facility] Comment on above: Performed By: #### L 100.0100, L500.4050, L503.6005, M200.1000 ####[facility] [address] [place], [address] Monocytes/100 WBC (Bld) 6.1 % Normal 0-10 [facility] Comment on above: Performed By: #### L 100.0100, L500.4050, L503.6005, M200.1000 ####[facility] [address] [place], [address] Neutrophils/100 WBC (Bld) 90.3 % High 47-70 [facility] Comment on above: Performed By: #### L 100.0100, L500.4050, L503.6005, M200.1000 ####[facility] [address] [place], [address] Nucleated RBC (Bld) [#/Vol] 0 10*3/uL Normal 0-5 [facility] Comment on above: Performed By: #### L 100.0100, L500.4050, L503.6005, M200.1000 ####[facility] [address] [place], [address] Platelet mean volume (Bld) [Entitic vol] 9.6 fL Normal 6.2-12.0 [facility] Comment on above: Performed By: #### L 100.0100, L500.4050, L503.6005, M200.1000 ####[facility] [address] [place], [address] Platelets (Bld) [#/Vol] 165 10*3/uL Normal 150-450 [facility] Comment on above: Performed By: #### L 100.0100, L500.4050, L503.6005, M200.1000 ####[facility] [address] [place], [address] RBC (Bld) [#/Vol] 3.77 10*6/uL Low 4.6-6.2 [facility] Comment on above: Performed By: #### L 100.0100, L500.4050, L503.6005, M200.1000 ####[facility] [address] [place], [address] RDW SD 50.0 fl High 35.1-43.9 [facility] Comment on above: Performed By: #### L 100.0100, L500.4050, L503.6005, M200.1000 ####[facility] [address] [place], [address] WBC (Bld) [#/Vol] 9.8 10*3/uL Normal 4.4-11.0 [facility] Comment on above: Performed By: #### L 100.0100, L500.4050, L503.6005, M200.1000 ####[facility] [address] [place], [address] Comprehensive Metabolic Prof ilon 03-23-2024 Albumin [Mass/Vol] 2.9 g/dL Low 3.2-5.0 [facility] Comment on above: Performed By: #### L 100.0100, L500.4050, L503.6005, M200.1000 ####[facility] [address] [place], [address] Albumin/Globulin [Mass ratio] 0.7 {ratio} Low 0.9-2.4 [facility] Comment on above: Performed By: #### L 100.0100, L500.4050, L503.6005, M200.1000 ####[facility] [address] [place], [address] ALK P 60 U/L Normal 45-117 [facility] Comment on above: Performed By: #### L 100.0100, L500.4050, L503.6005, M200.1000 ####[facility] [address] [place], [address] ALT [Catalytic activity/Vol] 17 U/L Normal 16-61 [facility] Comment on above: Performed By: #### L 100.0100, L500.4050, L503.6005, M200.1000 ####[facility] [address] [place], [address] AST [Catalytic activity/Vol] 13 U/L Low 15-37 [facility] Comment on above: Performed By: #### L 100.0100, L500.4050, L503.6005, M200.1000 ####[facility] [address] [place], [address] Bilirubin [Mass/Vol] 0.80 mg/dL Normal 0.20-1.00 [facility] Comment on above: Result Comment: For patients on eltrombopag therapy, use of Dimension [place] TBIL is not recommended. Performed By: #### L 100.0100, L500.4050, L503.6005, M200.1000 ####[facility] [address] [place], [address] BUN/CRE 20.8 RATIO High 10-20 [facility] Comment on above: Performed By: #### L 100.0100, L500.4050, L503.6005, M200.1000 ####[facility] [address] [place], [address] CA,Total 8.7 mg/dL Normal 8.5-10.1 [facility] Comment on above: Performed By: #### L 100.0100, L500.4050, L503.6005, M200.1000 ####[facility] [address] [place], [address] Chloride [Moles/Vol] 108 mmol/L High 98-107 [facility] Comment on above: Performed By: #### L 100.0100, L500.4050, L503.6005, M200.1000 ####[facility] [address] [place], [address] CO2 [Moles/Vol] 23.0 mmol/L Normal 21.0-32.0 [facility] Comment on above: Performed By: #### L 100.0100, L500.4050, L503.6005, M200.1000 ####[facility] [address] [place], [address] Creatinine [Mass/Vol] 1.20 mg/dL Normal 0.70-1.30 [facility] Comment on above: Result Comment: The validity of the calculated GFR GFRAA in patients over70 years has not been determined. Clinical correlation isessential. Performed By: #### L 100.0100, L500.4050, L503.6005, M200.1000 ####[facility] [address] [place], [address] ECRCL 62.20 ml/min Normal [facility] Comment on above: Performed By: #### L 100.0100, L500.4050, L503.6005, M200.1000 ####[facility] [address] [place], [address] EST GFR - AA 75 mL/min Normal >60 [facility] Comment on above: Result Comment: Afri can Citizen [place] GFR Calc Performed By: #### L 100.0100, L500.4050, L503.6005, M200.1000 ####[facility] [address] [place], [address] GAP 6 Normal 5-15 [facility] Comment on above: Performed By: #### L 100.0100, L500.4050, L503.6005, M200.1000 ####[facility] [address] [place], [address] GFR/1.73 sq M.predicted among non-blacks MDRD (S/P/Bld) [Vol rate/Area] 62 mL/min/{1.73_m2} Normal >60 [facility] Comment on above: Result Comment: Non- GFR Calc Performed By: #### L 100.0100, L500.4050, L503.6005, M200.1000 ####[facility] [address] [place], [address] Globulin (S) [Mass/Vol] 4.3 g/dL High 2.2-4.2 [facility] Comment on above: Performed By: #### L 100.0100, L500.4050, L503.6005, M200.1000 ####[facility] [address] [place], [address] Glucose [Mass/Vol] 163 mg/dL High 74-106 [facility] Comment on above: Result Comment: Fast ing Glucose result greater than or equal to 126 mg/dLsuggests DIABETES MELLITUS per A.D.A. criteria. Performed By: #### L 100.0100, L500.4050, L503.6005, M200.1000 ####[facility] [address] [place], [address] Potassium [Moles/Vol] 4.2 mmol/L Normal 3.5-5.1 [facility] Comment on above: Performed By: #### L 100.0100, L500.4050, L503.6005, M200.1000 ####[facility] [address] [place], [address] Sodium [Moles/Vol] 137 mmol/L Normal 136-145 [facility] Comment on above: Performed By: #### L 100.0100, L500.4050, L503.6005, M200.1000 ####[facility] [address] [place], [address] T PROT 7.2 g/dL Normal 6.4-8.2 [facility] Comment on above: Performed By: #### L 100.0100, L500.4050, L503.6005, M200.1000 ####[facility] [address] [place], [address] Urea nitrogen [Mass/Vol] 25 mg/dL High 7-18 [facility] Comment on above: Performed By: #### L 100.0100, L500.4050, L503.6005, M200.1000 ####[facility] [address] [place], [address] Emergency Department Summary on 03-23-2024 Emergency Department Summary Normal [facility] H AND P Exam - Hospitaliston 03-23-2024 H&P Exam - Hospitalist Normal [facility] Lactic Acidon 03-23-2024 Lactate [Moles/Vol] 2.0 mmol/L Normal 0.4-1.9 [facility] Comment on above: Result Comment: Crit ical Result(s) Called at: 18:37:25 03/23/2024 by: DIANNE. Results read back by Preeti Alvarado Performed By: #### L 503.6005 ####[facility] [address] [place], [address] Lactate [Moles/Vol] 2.6 mmol/L Invalid Interpretation Code 0.4-1.9 [facility] Comment on above: Order Comment: Y Result Comment: Crit ical Result(s) Called at: 14:05:42 03/23/2024 by:Antoinette Yang. Results read back by akshat. Performed By: #### L 100.0100, L500.4050, L503.6005, M200.1000 ####[facility] [address] [place], [address] Legionella Antigen Urineon 0 03-23-2024 LEGU Normal [facility] Comment on above: Performed By: #### M 300.4500, M300.4600 ####[facility] [address] [place], [address] Magnesiumon 03-23-2024 Magnesium [Mass/Vol] 2.5 mg/dL Normal 1.6-2.6 [facility] Comment on above: Order Comment: Comme nts: May add to ED labsComments: may add to ED labs Performed By: #### L 501.2300, L501.5200 ####[facility] [address] [place], [address] Phosphoruson 03-23-2024 Phosphate [Mass/Vol] 2.2 mg/dL Low 2.5-4.9 [facility] Comment on above: Order Comment: Comme nts: May add to ED labsComments: may add to ED labs Performed By: #### L 501.2300, L501.5200 ####[facility] [address] [place], [address] RESPIRATORY PANEL MOLECULARo n 03-23-2024 RP PANEL Normal [facility] Comment on above: Performed By: #### M 100.638 ####[facility] [address] [place], [address] Strep pneumoniae Antig(UR,CS F)on 03-23-2024 STPAG Normal [facility] Comment on above: Performed By: #### M 300.4500, M300.4600 ####[facility] [address] [place], [address] Urinalysis, Completeon 03-23 BACTERIA 1+ /hpf Normal None Seen [facility] Comment on above: Order Comment: COLLE CTOR TO SPECIFY Performed By: #### L 400.0001, M100.2200 ####[facility] [address] [place], [address] CAST,WBC 0-5 SEEN Normal None Seen [facility] Comment on above: Order Comment: COLLE CTOR TO SPECIFY Performed By: #### L 400.0001, M100.2200 ####[facility] [address] [place], [address] Mucus Ql (Urine sed) 1+ /hpf Normal [facility] Comment on above: Order Comment: COLLE CTOR TO SPECIFY Performed By: #### L 400.0001, M100.0 ####[facility] [address] [place], [address] RBC 0-5 SEEN Normal 0-5 [facility] Comment on above: Order Comment: COLLE CTOR TO SPECIFY Performed By: #### L 400.0001, M1.0 ####[facility] [address] [place], [address] WBC 50-100 SEEN Normal 0-5 [facility] Comment on above: Order Comment: SONALI CTOR TO SPECIFY Performed By: #### L 400.0001, M1.0 ####[facility] [address] [place], [address] EPI,SQUAMOUS 0 SEEN Normal 0-5 [facility] Comment on above: Order Comment: SONALI CTOR TO SPECIFY Performed By: #### L 400.0001, M1.0 ####[facility] [address] [place], [address] Basic Metabolic Profile (BMP )on 03-22-2024 BUN/CRE 23.6 RATIO High 10-20 [facility] Comment on above: Performed By: #### L 500.2500, L100.0100, M200.1000 ####[facility] [address] [place], [address] CA,Total 9.4 mg/dL Normal 8.5-10.1 [facility] Comment on above: Performed By: #### L 500.2500, L100.0100, M200.1000 ####[facility] [address] [place], [address] Chloride [Moles/Vol] 106 mmol/L Normal 98-107 [facility] Comment on above: Performed By: #### L 500.2500, L100.0100, M200.1000 ####[facility] [address] [place], [address] CO2 [Moles/Vol] 24.0 mmol/L Normal 21.0-32.0 [facility] Comment on above: Performed By: #### L 500.2500, L100.0100, M200.1000 ####[facility] [address] [place], [address] Creatinine [Mass/Vol] 1.06 mg/dL Normal 0.70-1.30 [facility] Comment on above: Result Comment: The validity of the calculated GFR GFRAA in patients over70 years has not been determined. Clinical correlation isessential. Performed By: #### L 500.2500, L100.0100, M200.1000 ####[facility] [address] [place], [address] ECRCL 70.32 ml/min Normal [facility] Comment on above: Performed By: #### L 500.2500, L100.0100, M200.1000 ####[facility] [address] [place], [address] EST GFR - AA 87 mL/min Normal >60 [facility] Comment on above: Result Comment: Afri can Citizen [place] GFR Calc Performed By: #### L 500.2500, L100.0100, M200.1000 ####[facility] [address] [place], [address] GAP 7 Normal 5-15 [facility] Comment on above: Performed By: #### L 500.2500, L100.0100, M200.1000 ####[facility] [address] [place], [address] GFR/1.73 sq M.predicted among non-blacks MDRD (S/P/Bld) [Vol rate/Area] 72 mL/min/{1.73_m2} Normal >60 [facility] Comment on above: Result Comment: Non- GFR Calc Performed By: #### L 500.2500, L100.0100, M200.1000 ####[facility] [address] [place], [address] Glucose [Mass/Vol] 118 mg/dL High 74-106 [facility] Comment on above: Result Comment: Fast ing Glucose result from 100 to 125 mg/dLsuggests IMPAIRED HOMEOSTASIS per A.D.A. criteria. Performed By: #### L 500.2500, L100.0100, M200.1000 ####[facility] [address] [place], [address] Potassium [Moles/Vol] 4.5 mmol/L Normal 3.5-5.1 [facility] Comment on above: Performed By: #### L 500.2500, L100.0100, M200.1000 ####[facility] [address] [place], [address] Sodium [Moles/Vol] 137 mmol/L Normal 136-145 [facility] Comment on above: Performed By: #### L 500.2500, L100.0100, M200.1000 ####[facility] [address] [place], [address] Urea nitrogen [Mass/Vol] 25 mg/dL High 7-18 [facility] Comment on above: Performed By: #### L 500.2500, L100.0100, M200.1000 ####[facility] [address] [place], [address] CBC W/Diff, Automatedon 01-0 8-2024 Absolute Lymph 0.43 X10 3/uL Low 0.83-4.51 [facility] Comment on above: Performed By: #### L 500.2500, L100.0100, M200.1000 ####[facility] [address] [place], [address] Absolute Neut 10.8 X10 3/uL High 2.0-7.7 [facility] Comment on above: Performed By: #### L 500.2500, L100.0100, M200.1000 ####[facility] [address] [place], [address] Basophils/100 WBC (Bld) 0.3 % Normal 0-1 [facility] Comment on above: Performed By: #### L 500.2500, L100.0100, M200.1000 ####[facility] [address] [place], [address] Eosinophils/100 WBC (Bld) 0.5 % Normal 0-5 [facility] Comment on above: Performed By: #### L 500.2500, L100.0100, M200.1000 ####[facility] [address] [place], [address] Erythrocyte distribution width (RBC) [Ratio] 15.1 % High 11.6-14.6 [facility] Comment on above: Performed By: #### L 500.2500, L100.0100, M200.1000 ####[facility] [address] [place], [address] Hematocrit (Bld) [Volume fraction] 34.1 % Low 40-54 [facility] Comment on above: Performed By: #### L 500.2500, L100.0100, M200.1000 ####[facility] [address] [place], [address] Hemoglobin (Bld) [Mass/Vol] 11.3 g/dL Low 13.0-16.5 [facility] Comment on above: Performed By: #### L 500.2500, L100.0100, M200.1000 ####[facility] [address] [place], [address] IG% 0.400 Normal 0.0-0.9 [facility] Comment on above: Result Comment: IG% - Immature Granulocytes (promyelocytes, myelocytes andmetamyelocytes) > 1% indicates that a LEFT SHIFT is Present. Performed By: #### L 500.2500, L100.0100, M200.1000 ####[facility] [address] [place], [address] Lymphocytes/100 WBC (Bld) 3.6 % Low 19-41 [facility] Comment on above: Performed By: #### L 500.2500, L100.0100, M200.1000 ####[facility] [address] [place], [address] MCH (RBC) [Entitic mass] 28.5 pg Normal 27.0-32.0 [facility] Comment on above: Performed By: #### L 500.2500, L100.0100, M200.1000 ####[facility] [address] [place], [address] MCHC (RBC) [Mass/Vol] 33.1 g/dL Normal 32-36 [facility] Comment on above: Performed By: #### L 500.2500, L100.0100, M200.1000 ####[facility] [address] [place], [address] MCV (RBC) [Entitic vol] 85.9 fL Normal 80-94 [facility] Comment on above: Performed By: #### L 500.2500, L100.0100, M200.1000 ####[facility] [address] [place], [address] Monocytes/100 WBC (Bld) 5.3 % Normal 0-10 [facility] Comment on above: Performed By: #### L 500.2500, L100.0100, M200.1000 ####[facility] [address] [place], [address] Neutrophils/100 WBC (Bld) 89.9 % High 47-70 [facility] Comment on above: Performed By: #### L 500.2500, L100.0100, M200.1000 ####[facility] [address] [place], [address] Nucleated RBC (Bld) [#/Vol] 0 10*3/uL Normal 0-5 [facility] Comment on above: Performed By: #### L 500.2500, L100.0100, M200.1000 ####[facility] [address] [place], [address] Platelet mean volume (Bld) [Entitic vol] 10.0 fL Normal 6.2-12.0 [facility] Comment on above: Performed By: #### L 500.2500, L100.0100, M200.1000 ####[facility] [address] [place], [address] Platelets (Bld) [#/Vol] 187 10*3/uL Normal 150-450 [facility] Comment on above: Performed By: #### L 500.2500, L100.0100, M200.1000 ####[facility] [address] [place], [address] RBC (Bld) [#/Vol] 3.97 10*6/uL Low 4.6-6.2 [facility] Comment on above: Performed By: #### L 500.2500, L100.0100, M200.1000 ####[facility] [address] [place], [address] RDW SD 47.1 fl High 35.1-43.9 [facility] Comment on above: Performed By: #### L 500.2500, L100.0100, M200.1000 ####[facility] [address] [place], [address] WBC (Bld) [#/Vol] 12.0 10*3/uL High 4.4-11.0 [facility] Comment on above: Performed By: #### L 500.2500, L100.0100, M200.1000 ####[facility] [address] [place], [address] COVID 19 AG RAPID (PRUDENCIO Rizo)on 03-22-2024 SARS-CoV-2 (COVID-19) RNA ALEXYS+probe Ql (Unsp spec) Normal [facility] Comment on above: Performed By: #### M 100.505 ####[facility] [address] [place], [address] Chest PA and Lateralon 03-22 Chest PA and Lateral Normal [facility] Urinalysis, Completeon 03-22 WBC >100 SEEN Normal 0-5 [facility] Comment on above: Order Comment: AILIN TER SPECIMEN Result Comment: Micr oscopic field is filled. Other elements may beobscured. Performed By: #### L 400.0001 ####[facility] [address] [place], [address] BACTERIA 0 SEEN Normal None Seen [facility] Comment on above: Order Comment: AILIN TER SPECIMEN Performed By: #### L 400.0001 ####[facility] [address] [place], [address] EPI,SQUAMOUS 0 SEEN Normal 0-5 [facility] Comment on above: Order Comment: AILIN TER SPECIMEN Performed By: #### L 400.0001 ####[facility] [address] [place], [address] Mucus Ql (Urine sed) 0 SEEN Normal [facility] Comment on above: Order Comment: AILIN TER SPECIMEN Performed By: #### L 400.0001 ####[facility] [address] [place], [address] RBC 0 SEEN Normal 0-[address] [place] [address] Comment on above: Order Comment: AILIN TER SPECIMEN Performed By: #### L 400.0001 ####[facility] [address] [place], [address] Basic Metabolic Profile (BMP )on 03-21-2024 BUN/CRE 23.9 RATIO High 10-20 [facility] Comment on above: Performed By: #### L 100.0100, L500.2500 ####[facility] [address] [place], [address] CA,Total 8.7 mg/dL Normal 8.5-10.1 [facility] Comment on above: Performed By: #### L 100.0100, L500.2500 ####[facility] [address] [place], [address] Chloride [Moles/Vol] 109 mmol/L High 98-107 [facility] Comment on above: Performed By: #### L 100.0100, L500.2500 ####[facility] [address] [place], [address] CO2 [Moles/Vol] 27.0 mmol/L Normal 21.0-32.0 [facility] Comment on above: Performed By: #### L 100.0100, L500.2500 ####[facility] [address] [place], [address] Creatinine [Mass/Vol] 0.84 mg/dL Normal 0.70-1.30 [facility] Comment on above: Result Comment: The validity of the calculated GFR GFRAA in patients over70 years has not been determined. Clinical correlation isessential. Performed By: #### L 100.0100, L500.2500 ####[facility] [address] [place], [address] ECRCL 88.30 ml/min Normal [facility] Comment on above: Performed By: #### L 100.0100, L500.2500 ####[facility] [address] [place], [address] EST GFR - AA 114 mL/min Normal >60 [facility] Comment on above: Result Comment: Afri can Citizen [place] GFR Calc Performed By: #### L 100.0100, L500.2500 ####[facility] [address] [place], [address] GAP 2 Low 5-15 [facility] Comment on above: Performed By: #### L 100.0100, L500.2500 ####[facility] [address] [place], [address] GFR/1.73 sq M.predicted among non-blacks MDRD (S/P/Bld) [Vol rate/Area] 94 mL/min/{1.73_m2} Normal >60 [facility] Comment on above: Result Comment: Non- GFR Calc Performed By: #### L 100.0100, L500.2500 ####[facility] [address] [place], [address] Glucose [Mass/Vol] 92 mg/dL Normal 74-106 [facility] Comment on above: Performed By: #### L 100.0100, L500.2500 ####[facility] [address] [place], [address] Potassium [Moles/Vol] 3.6 mmol/L Normal 3.5-5.1 [facility] Comment on above: Performed By: #### L 100.0100, L500.2500 ####[facility] [address] [place], [address] Sodium [Moles/Vol] 138 mmol/L Normal 136-145 [facility] Comment on above: Performed By: #### L 100.0100, L500.2500 ####[facility] [address] [place], [address] Urea nitrogen [Mass/Vol] 20 mg/dL High 7-18 [facility] Comment on above: Performed By: #### L 100.0100, L500.2500 ####[facility] [address] [place], [address] CBC W/Diff, Automatedon 01-0 7-2024 Absolute Lymph 0.95 X10 3/uL Normal 0.83-4.51 [facility] Comment on above: Performed By: #### L 100.0100, L500.2500 ####[facility] [address] [place], [address] Absolute Neut 5.5 X10 3/uL Normal 2.0-7.7 [facility] Comment on above: Performed By: #### L 100.0100, L500.2500 ####[facility] [address] [place], [address] Basophils/100 WBC (Bld) 0.6 % Normal 0-1 [facility] Comment on above: Performed By: #### L 100.0100, L500.2500 ####[facility] [address] [place], [address] Eosinophils/100 WBC (Bld) 2.8 % Normal 0-5 [facility] Comment on above: Performed By: #### L 100.0100, L500.2500 ####[facility] [address] [place], [address] Erythrocyte distribution width (RBC) [Ratio] 14.7 % High 11.6-14.6 [facility] Comment on above: Performed By: #### L 100.0100, L500.2500 ####[facility] [address] [place], [address] Hematocrit (Bld) [Volume fraction] 32.3 % Low 40-54 [facility] Comment on above: Performed By: #### L 100.0100, L500.2500 ####[facility] [address] [place], [address] Hemoglobin (Bld) [Mass/Vol] 10.1 g/dL Low 13.0-16.5 [facility] Comment on above: Performed By: #### L 100.0100, L500.2500 ####[facility] [address] [place], [address] IG% 0.400 Normal 0.0-0.9 [facility] Comment on above: Result Comment: IG% - Immature Granulocytes (promyelocytes, myelocytes andmetamyelocytes) > 1% indicates that a LEFT SHIFT is Present. Performed By: #### L 100.0100, L500.2500 ####[facility] [address] [place], [address] Lymphocytes/100 WBC (Bld) 13.2 % Low 19-41 [facility] Comment on above: Performed By: #### L 100.0100, L500.2500 ####[facility] [address] [place], [address] MCH (RBC) [Entitic mass] 27.4 pg Normal 27.0-32.0 [facility] Comment on above: Performed By: #### L 100.0100, L500.2500 ####[facility] [address] [place], [address] MCHC (RBC) [Mass/Vol] 31.3 g/dL Low 32-36 [facility] Comment on above: Performed By: #### L 100.0100, L500.2500 ####[facility] [address] [place], [address] MCV (RBC) [Entitic vol] 87.8 fL Normal 80-94 [facility] Comment on above: Performed By: #### L 100.0100, L500.2500 ####[facility] [address] [place], [address] Monocytes/100 WBC (Bld) 7.2 % Normal 0-10 [facility] Comment on above: Performed By: #### L 100.0100, L500.2500 ####[facility] [address] [place], [address] Neutrophils/100 WBC (Bld) 75.8 % High 47-70 [facility] Comment on above: Performed By: #### L 100.0100, L500.2500 ####[facility] [address] [place], [address] Nucleated RBC (Bld) [#/Vol] 0 10*3/uL Normal 0-5 [facility] Comment on above: Performed By: #### L 100.0100, L500.2500 ####[facility] [address] [place], [address] Platelet mean volume (Bld) [Entitic vol] 10.1 fL Normal 6.2-12.0 [facility] Comment on above: Performed By: #### L 100.0100, L500.2500 ####[facility] [address] [place], [address] Platelets (Bld) [#/Vol] 184 10*3/uL Normal 150-450 [facility] Comment on above: Performed By: #### L 100.0100, L500.2500 ####[facility] [address] [place], [address] RBC (Bld) [#/Vol] 3.68 10*6/uL Low 4.6-6.2 [facility] Comment on above: Performed By: #### L 100.0100, L500.2500 ####[facility] [address] [place], [address] RDW SD 47.8 fl High 35.1-43.9 [facility] Comment on above: Performed By: #### L 100.0100, L500.2500 ####[facility] [address] [place], [address] WBC (Bld) [#/Vol] 7.2 10*3/uL Normal 4.4-11.0 [facility] Comment on above: Performed By: #### L 100.0100, L500.2500 ####[facility] [address] [place], [address] Basic Metabolic Profile (BMP )on 03-14-2024 BUN/CRE 29.8 RATIO High 10-20 [facility] Comment on above: Performed By: #### L 100.0100, L500.2500 ####[facility] [address] [place], [address] CA,Total 8.9 mg/dL Normal 8.5-10.1 [facility] Comment on above: Performed By: #### L 100.0100, L500.2500 ####[facility] [address] [place], [address] Chloride [Moles/Vol] 109 mmol/L High 98-107 [facility] Comment on above: Performed By: #### L 100.0100, L500.2500 ####[facility] [address] [place], [address] CO2 [Moles/Vol] 25.0 mmol/L Normal 21.0-32.0 [facility] Comment on above: Performed By: #### L 100.0100, L500.2500 ####[facility] [address] [place], [address] Creatinine [Mass/Vol] 0.84 mg/dL Normal 0.70-1.30 [facility] Comment on above: Result Comment: The validity of the calculated GFR GFRAA in patients over70 years has not been determined. Clinical correlation isessential. Performed By: #### L 100.0100, L500.2500 ####[facility] [address] [place], [address] ECRCL 88.98 ml/min Normal [facility] Comment on above: Performed By: #### L 100.0100, L500.2500 ####[facility] [address] [place], [address] EST GFR - AA 114 mL/min Normal >60 [facility] Comment on above: Result Comment: Afri can Citizen [place] GFR Calc Performed By: #### L 100.0100, L500.2500 ####[facility] [address] [place], [address] GAP 4 Low 5-15 [facility] Comment on above: Performed By: #### L 100.0100, L500.2500 ####[facility] [address] [place], [address] GFR/1.73 sq M.predicted among non-blacks MDRD (S/P/Bld) [Vol rate/Area] 94 mL/min/{1.73_m2} Normal >60 [facility] Comment on above: Result Comment: Non- GFR Calc Performed By: #### L 100.0100, L500.2500 ####[facility] [address] [place], [address] Glucose [Mass/Vol] 94 mg/dL Normal 74-106 [facility] Comment on above: Performed By: #### L 100.0100, L500.2500 ####[facility] [address] [place], [address] Potassium [Moles/Vol] 3.6 mmol/L Normal 3.5-5.1 [facility] Comment on above: Performed By: #### L 100.0100, L500.2500 ####[facility] [address] [place], [address] Sodium [Moles/Vol] 138 mmol/L Normal 136-145 [facility] Comment on above: Performed By: #### L 100.0100, L500.2500 ####[facility] [address] [place], [address] Urea nitrogen [Mass/Vol] 25 mg/dL High 7-18 [facility] Comment on above: Performed By: #### L 100.0100, L500.2500 ####[facility] [address] [place], [address] CBC W/Diff, Automatedon 12-3 -2023 Absolute Lymph 1.06 X10 3/uL Normal 0.83-4.51 [facility] Comment on above: Performed By: #### L 100.0100, L500.2500 ####[facility] [address] [place], [address] Absolute Neut 5.6 X10 3/uL Normal 2.0-7.7 [facility] Comment on above: Performed By: #### L 100.0100, L500.2500 ####[facility] [address] [place], [address] Basophils/100 WBC (Bld) 0.4 % Normal 0-1 [facility] Comment on above: Performed By: #### L 100.0100, L500.2500 ####[facility] [address] [place], [address] Eosinophils/100 WBC (Bld) 3.2 % Normal 0-5 [facility] Comment on above: Performed By: #### L 100.0100, L500.2500 ####[facility] [address] [place], [address] Erythrocyte distribution width (RBC) [Ratio] 14.6 % Normal 11.6-14.6 [facility] Comment on above: Performed By: #### L 100.0100, L500.2500 ####[facility] [address] [place], [address] Hematocrit (Bld) [Volume fraction] 32.2 % Low 40-54 [facility] Comment on above: Performed By: #### L 100.0100, L500.2500 ####[facility] [address] [place], [address] Hemoglobin (Bld) [Mass/Vol] 10.2 g/dL Low 13.0-16.5 [facility] Comment on above: Performed By: #### L 100.0100, L500.2500 ####[facility] [address] [place], [address] IG% 0.300 Normal 0.0-0.9 [facility] Comment on above: Result Comment: IG% - Immature Granulocytes (promyelocytes, myelocytes andmetamyelocytes) > 1% indicates that a LEFT SHIFT is Present. Performed By: #### L 100.0100, L500.2500 ####[facility] [address] [place], [address] Lymphocytes/100 WBC (Bld) 14.1 % Low 19-41 [facility] Comment on above: Performed By: #### L 100.0100, L500.2500 ####[facility] [address] [place], [address] MCH (RBC) [Entitic mass] 27.8 pg Normal 27.0-32.0 [facility] Comment on above: Performed By: #### L 100.0100, L500.2500 ####[facility] [address] [place], [address] MCHC (RBC) [Mass/Vol] 31.7 g/dL Low 32-36 [facility] Comment on above: Performed By: #### L 100.0100, L500.2500 ####[facility] [address] [place], [address] MCV (RBC) [Entitic vol] 87.7 fL Normal 80-94 [facility] Comment on above: Performed By: #### L 100.0100, L500.2500 ####[facility] [address] [place], [address] Monocytes/100 WBC (Bld) 7.0 % Normal 0-10 [facility] Comment on above: Performed By: #### L 100.0100, L500.2500 ####[facility] [address] [place], [address] Neutrophils/100 WBC (Bld) 75.0 % High 47-70 [facility] Comment on above: Performed By: #### L 100.0100, L500.2500 ####[facility] [address] [place], [address] Nucleated RBC (Bld) [#/Vol] 0 10*3/uL Normal 0-5 [facility] Comment on above: Performed By: #### L 100.0100, L500.2500 ####[facility] [address] [place], [address] Platelet mean volume (Bld) [Entitic vol] 10.2 fL Normal 6.2-12.0 [facility] Comment on above: Performed By: #### L 100.0100, L500.2500 ####[facility] [address] [place], [address] Platelets (Bld) [#/Vol] 168 10*3/uL Normal 150-450 [facility] Comment on above: Performed By: #### L 100.0100, L500.2500 ####[facility] [address] [place], [address] RBC (Bld) [#/Vol] 3.67 10*6/uL Low 4.6-6.2 [facility] Comment on above: Performed By: #### L 100.0100, L500.2500 ####[facility] [address] [place], [address] RDW SD 47.1 fl High 35.1-43.9 [facility] Comment on above: Performed By: #### L 100.0100, L500.2500 ####[facility] [address] [place], [address] WBC (Bld) [#/Vol] 7.5 10*3/uL Normal 4.4-11.0 [facility] Comment on above: Performed By: #### L 100.0100, L500.2500 ####[facility] [address] [place], [address] Basic Metabolic Profile (BMP )on 03-07-2024 BUN/CRE 21.4 RATIO High 10-20 [facility] Comment on above: Performed By: #### L 100.0100, L500.2500 ####[facility] [address] [place], [address] CA,Total 8.8 mg/dL Normal 8.5-10.1 [facility] Comment on above: Performed By: #### L 100.0100, L500.2500 ####[facility] [address] [place], [address] Chloride [Moles/Vol] 109 mmol/L High 98-107 [facility] Comment on above: Performed By: #### L 100.0100, L500.2500 ####[facility] [address] [place], [address] CO2 [Moles/Vol] 25.0 mmol/L Normal 21.0-32.0 [facility] Comment on above: Performed By: #### L 100.0100, L500.2500 ####[facility] [address] [place], [address] Creatinine [Mass/Vol] 0.89 mg/dL Normal 0.70-1.30 [facility] Comment on above: Result Comment: The validity of the calculated GFR GFRAA in patients over70 years has not been determined. Clinical correlation isessential. Performed By: #### L 100.0100, L500.2500 ####[facility] [address] [place], [address] ECRCL 83.98 ml/min Normal [facility] Comment on above: Performed By: #### L 100.0100, L500.2500 ####[facility] [address] [place], [address] EST GFR - AA 107 mL/min Normal >60 [facility] Comment on above: Result Comment: Afri can [place] GFR Calc Performed By: #### L 100.0100, L500.2500 ####[facility] [address] [place], [address] GAP 5 Normal 5-15 [facility] Comment on above: Performed By: #### L 100.0100, L500.2500 ####[facility] [address] [place], [address] GFR/1.73 sq M.predicted among non-blacks MDRD (S/P/Bld) [Vol rate/Area] 88 mL/min/{1.73_m2} Normal >60 [facility] Comment on above: Result Comment: Non- GFR Calc Performed By: #### L 100.0100, L500.2500 ####[facility] [address] [place], [address] Glucose [Mass/Vol] 91 mg/dL Normal 74-106 [facility] Comment on above: Performed By: #### L 100.0100, L500.2500 ####[facility] [address] [place], [address] Potassium [Moles/Vol] 3.8 mmol/L Normal 3.5-5.1 [facility] Comment on above: Performed By: #### L 100.0100, L500.2500 ####[facility] [address] [place], [address] Sodium [Moles/Vol] 139 mmol/L Normal 136-145 [facility] Comment on above: Performed By: #### L 100.0100, L500.2500 ####[facility] [address] [place], [address] Urea nitrogen [Mass/Vol] 19 mg/dL High 7-18 [facility] Comment on above: Performed By: #### L 100.0100, L500.2500 ####[facility] [address] [place], [address] CBC W/Diff, Automatedon 12-2 -2023 Absolute Lymph 0.97 X10 3/uL Normal 0.83-4.51 [facility] Comment on above: Performed By: #### L 100.0100, L500.2500 ####[facility] [address] [place], [address] Absolute Neut 4.0 X10 3/uL Normal 2.0-7.7 [facility] Comment on above: Performed By: #### L 100.0100, L500.2500 ####[facility] [address] [place], [address] Basophils/100 WBC (Bld) 0.7 % Normal 0-1 [facility] Comment on above: Performed By: #### L 100.0100, L500.2500 ####[facility] [address] [place], [address] Eosinophils/100 WBC (Bld) 2.6 % Normal 0-5 [facility] Comment on above: Performed By: #### L 100.0100, L500.2500 ####[facility] [address] [place], [address] Erythrocyte distribution width (RBC) [Ratio] 14.3 % Normal 11.6-14.6 [facility] Comment on above: Performed By: #### L 100.0100, L500.2500 ####[facility] [address] [place], [address] Hematocrit (Bld) [Volume fraction] 33.3 % Low 40-54 [facility] Comment on above: Performed By: #### L 100.0100, L500.2500 ####[facility] [address] [place], [address] Hemoglobin (Bld) [Mass/Vol] 10.8 g/dL Low 13.0-16.5 [facility] Comment on above: Performed By: #### L 100.0100, L500.2500 ####[facility] [address] [place], [address] IG% 0.500 Normal 0.0-0.9 [facility] Comment on above: Result Comment: IG% - Immature Granulocytes (promyelocytes, myelocytes andmetamyelocytes) > 1% indicates that a LEFT SHIFT is Present. Performed By: #### L 100.0100, L500.2500 ####[facility] [address] [place], [address] Lymphocytes/100 WBC (Bld) 16.9 % Low 19-41 [facility] Comment on above: Performed By: #### L 100.0100, L500.2500 ####[facility] [address] [place], [address] MCH (RBC) [Entitic mass] 28.8 pg Normal 27.0-32.0 [facility] Comment on above: Performed By: #### L 100.0100, L500.2500 ####[facility] [address] [place], [address] MCHC (RBC) [Mass/Vol] 32.4 g/dL Normal 32-36 [facility] Comment on above: Performed By: #### L 100.0100, L500.2500 ####[facility] [address] [place], [address] MCV (RBC) [Entitic vol] 88.8 fL Normal 80-94 [facility] Comment on above: Performed By: #### L 100.0100, L500.2500 ####[facility] [address] [place], [address] Monocytes/100 WBC (Bld) 9.9 % Normal 0-10 [facility] Comment on above: Performed By: #### L 100.0100, L500.2500 ####[facility] [address] [place], [address] Neutrophils/100 WBC (Bld) 69.4 % Normal 47-70 [facility] Comment on above: Performed By: #### L 100.0100, L500.2500 ####[facility] [address] [place], [address] Nucleated RBC (Bld) [#/Vol] 0 10*3/uL Normal 0-5 [facility] Comment on above: Performed By: #### L 100.0100, L500.2500 ####[facility] [address] [place], [address] Platelet mean volume (Bld) [Entitic vol] 10.5 fL Normal 6.2-12.0 [facility] Comment on above: Performed By: #### L 100.0100, L500.2500 ####[facility] [address] [place], [address] Platelets (Bld) [#/Vol] 200 10*3/uL Normal 150-450 [facility] Comment on above: Performed By: #### L 100.0100, L500.2500 ####[facility] [address] [place], [address] RBC (Bld) [#/Vol] 3.75 10*6/uL Low 4.6-6.2 [facility] Comment on above: Performed By: #### L 100.0100, L500.2500 ####[facility] [address] [place], [address] RDW SD 46.1 fl High 35.1-43.9 [facility] Comment on above: Performed By: #### L 100.0100, L500.2500 ####[facility] [address] [place], [address] WBC (Bld) [#/Vol] 5.7 10*3/uL Normal 4.4-11.0 [facility] Comment on above: Performed By: #### L 100.0100, L500.2500 ####[facility] [address] [place], [address] COVID 19 AG RAPID (RN RICHY Rizo)on 03-06-2024 SARS-CoV-2 (COVID-19) RNA ALEXYS+probe Ql (Unsp spec) SARS-CoV-2 (COVID 19) Negative RAPID METHOD BinaxNow COVID19 Ag Card Normal [facility] Comment on above: Performed By: #### M 100.505 ####[facility] [address] [place], [address] Urine Cultureon 03-06-2024 URC Normal [facility] Comment on above: Performed By: #### L 400.0001, M1.2199 ####[facility] [address] [place], [address] Urinalysis, Completeon 03-03 BACTERIA 2+ /hpf Normal None Seen [facility] Comment on above: Order Comment: AILIN TER SPECIMEN Performed By: #### L 400.0001, M100.2200 ####[facility] [address] [place], [address] CAST,WBC 0-5 SEEN Normal None Seen [facility] Comment on above: Order Comment: AILIN TER SPECIMEN Performed By: #### L 400.0001, .2199 ####[facility] [address] [place], [address] Mucus Ql (Urine sed) 1+ /hpf Normal [facility] Comment on above: Order Comment: AILIN TER SPECIMEN Performed By: #### L 400.0001, .2199 ####[facility] [address] [place], [address] RBC 5-10 SEEN Normal 0-5 [facility] Comment on above: Order Comment: AILIN TER SPECIMEN Performed By: #### L 400.0001, .2199 ####[facility] [address] [place], [address] WBC 50-100 SEEN Normal 0-5 [facility] Comment on above: Order Comment: AILIN TER SPECIMEN Performed By: #### L 400.0001, ####[facility] [address] [place], [address] EPI,SQUAMOUS 0 SEEN Normal 0-5 [facility] Comment on above: Order Comment: AILIN TER SPECIMEN Performed By: #### L 400.0001, ####[facility] [address] [place], [address] Vitamin D,25 Hydroxyon 03-02 Vitamin D 25-OH 53.5 ng/mL Normal [facility] Comment on above: Result Comment: Lenore min D 25(OH) Status Range Deficiency <20 ng/mL (50nmol/L) Insufficiency 20 - 30 ng/mL (50 - 75 nmol/L) Sufficiency 30 - 100 ng/mL (75 - 250 nmol/L) Toxicity >100 ng/mL (>250 nmol/L) Performed By: #### L 506.1000 ####[facility] [address] [place], [address] Basic Metabolic Profile (BMP )on 02-29-2024 BUN/CRE 24.4 RATIO High 10-20 [facility] Comment on above: Performed By: #### L 100.0100, L500.2500 ####[facility] [address] [place], [address] CA,Total 9.0 mg/dL Normal 8.5-10.1 [facility] Comment on above: Performed By: #### L 100.0100, L500.2500 ####[facility] [address] [place], [address] Chloride [Moles/Vol] 111 mmol/L High 98-107 [facility] Comment on above: Performed By: #### L 100.0100, L500.2500 ####[facility] [address] [place], [address] CO2 [Moles/Vol] 26.0 mmol/L Normal 21.0-32.0 [facility] Comment on above: Performed By: #### L 100.0100, L500.2500 ####[facility] [address] [place], [address] Creatinine [Mass/Vol] 0.82 mg/dL Normal 0.70-1.30 [facility] Comment on above: Result Comment: The validity of the calculated GFR GFRAA in patients over70 years has not been determined. Clinical correlation isessential. Performed By: #### L 100.0100, L500.2500 ####[facility] [address] [place], [address] ECRCL 91.05 ml/min Normal [facility] Comment on above: Performed By: #### L 100.0100, L500.2500 ####[facility] [address] [place], [address] EST GFR - AA 117 mL/min Normal >60 [facility] Comment on above: Result Comment: Afri can Citizen [place] GFR Calc Performed By: #### L 100.0100, L500.2500 ####[facility] [address] [place], [address] GAP 4 Low 5-15 [facility] Comment on above: Performed By: #### L 100.0100, L500.2500 ####[facility] [address] [place], [address] GFR/1.73 sq M.predicted among non-blacks MDRD (S/P/Bld) [Vol rate/Area] 97 mL/min/{1.73_m2} Normal >60 [facility] Comment on above: Result Comment: Non- GFR Calc Performed By: #### L 100.0100, L500.2500 ####[facility] [address] [place], [address] Glucose [Mass/Vol] 90 mg/dL Normal 74-106 [facility] Comment on above: Performed By: #### L 100.0100, L500.2500 ####[facility] [address] [place], [address] Potassium [Moles/Vol] 3.9 mmol/L Normal 3.5-5.1 [facility] Comment on above: Performed By: #### L 100.0100, L500.2500 ####[facility] [address] [place], [address] Sodium [Moles/Vol] 140 mmol/L Normal 136-145 [facility] Comment on above: Performed By: #### L 100.0100, L500.2500 ####[facility] [address] [place], [address] Urea nitrogen [Mass/Vol] 20 mg/dL High 7-18 [facility] Comment on above: Performed By: #### L 100.0100, L500.2500 ####[facility] [address] [place], [address] CBC W/Diff, Automatedon 12-1 7-2024 Absolute Lymph 0.98 X10 3/uL Normal 0.83-4.51 [facility] Comment on above: Performed By: #### L 100.0100, L500.2500 ####[facility] [address] [place], [address] Absolute Neut 4.0 X10 3/uL Normal 2.0-7.7 [facility] Comment on above: Performed By: #### L 100.0100, L500.2500 ####[facility] [address] [place], [address] Basophils/100 WBC (Bld) 0.5 % Normal 0-1 [facility] Comment on above: Performed By: #### L 100.0100, L500.2500 ####[facility] [address] [place], [address] Eosinophils/100 WBC (Bld) 2.6 % Normal 0-5 [facility] Comment on above: Performed By: #### L 100.0100, L500.2500 ####[facility] [address] [place], [address] Erythrocyte distribution width (RBC) [Ratio] 14.6 % Normal 11.6-14.6 [facility] Comment on above: Performed By: #### L 100.0100, L500.2500 ####[facility] [address] [place], [address] Hematocrit (Bld) [Volume fraction] 35.0 % Low 40-54 [facility] Comment on above: Performed By: #### L 100.0100, L500.2500 ####[facility] [address] [place], [address] Hemoglobin (Bld) [Mass/Vol] 11.1 g/dL Low 13.0-16.5 [facility] Comment on above: Performed By: #### L 100.0100, L500.2500 ####[facility] [address] [place], [address] IG% 0.300 Normal 0.0-0.9 [facility] Comment on above: Result Comment: IG% - Immature Granulocytes (promyelocytes, myelocytes andmetamyelocytes) > 1% indicates that a LEFT SHIFT is Present. Performed By: #### L 100.0100, L500.2500 ####[facility] [address] [place], [address] Lymphocytes/100 WBC (Bld) 17.0 % Low 19-41 [facility] Comment on above: Performed By: #### L 100.0100, L500.2500 ####[facility] [address] [place], [address] MCH (RBC) [Entitic mass] 28.2 pg Normal 27.0-32.0 [facility] Comment on above: Performed By: #### L 100.0100, L500.2500 ####[facility] [address] [place], [address] MCHC (RBC) [Mass/Vol] 31.7 g/dL Low 32-36 [facility] Comment on above: Performed By: #### L 100.0100, L500.2500 ####[facility] [address] [place], [address] MCV (RBC) [Entitic vol] 89.1 fL Normal 80-94 [facility] Comment on above: Performed By: #### L 100.0100, L500.2500 ####[facility] [address] [place], [address] Monocytes/100 WBC (Bld) 9.2 % Normal 0-10 [facility] Comment on above: Performed By: #### L 100.0100, L500.2500 ####[facility] [address] [place], [address] Neutrophils/100 WBC (Bld) 70.4 % High 47-70 [facility] Comment on above: Performed By: #### L 100.0100, L500.2500 ####[facility] [address] [place], [address] Nucleated RBC (Bld) [#/Vol] 0 10*3/uL Normal 0-5 [facility] Comment on above: Performed By: #### L 100.0100, L500.2500 ####[facility] [address] [place], [address] Platelet mean volume (Bld) [Entitic vol] 10.0 fL Normal 6.2-12.0 [facility] Comment on above: Performed By: #### L 100.0100, L500.2500 ####[facility] [address] [place], [address] Platelets (Bld) [#/Vol] 212 10*3/uL Normal 150-450 [facility] Comment on above: Performed By: #### L 100.0100, L500.2500 ####[facility] [address] [place], [address] RBC (Bld) [#/Vol] 3.93 10*6/uL Low 4.6-6.2 [facility] Comment on above: Performed By: #### L 100.0100, L500.2500 ####[facility] [address] [place], [address] RDW SD 47.1 fl High 35.1-43.9 [facility] Comment on above: Performed By: #### L 100.0100, L500.2500 ####[facility] [address] [place], [address] WBC (Bld) [#/Vol] 5.8 10*3/uL Normal 4.4-11.0 [facility] Comment on above: Performed By: #### L 100.0100, L500.2500 ####[facility] [address] [place], [address] Basic Metabolic Profile (BMP )on 02-28-2024 BUN Normal 7-18 [facility] Comment on above: Result Comment: Canc elled via OM: MD Ordered Performed By: #### L 100.0500, L500.2500 ####[facility] [address] [place], [address] BUN/CRE Normal 10-20 [facility] Comment on above: Result Comment: Canc elled via OM: MD Ordered Performed By: #### L 100.0500, L500.2500 ####[facility] [address] [place], [address] CA,Total Normal 8.5-10.1 [facility] Comment on above: Result Comment: Canc elled via OM: MD Ordered Performed By: #### L 100.0500, L500.2500 ####[facility] [address] [place], [address] CL Normal 98-107 [facility] Comment on above: Result Comment: Canc elled via OM: MD Ordered Performed By: #### L 100.0500, L500.2500 ####[facility] [address] [place], [address] CO2 Normal 21.0-32.0 [facility] Comment on above: Result Comment: Canc elled via OM: MD Ordered Performed By: #### L 100.0500, L500.2500 ####[facility] [address] [place], [address] CREAT,SERUM Normal 0.70-1.30 [facility] Comment on above: Result Comment: Canc elled via OM: MD Ordered Performed By: #### L 100.0500, L500.2500 ####[facility] [address] [place], [address] EST GFR Normal >60 [facility] Comment on above: Result Comment: Canc elled via OM: MD Ordered Performed By: #### L 100.0500, L500.2500 ####[facility] [address] [place], [address] EST GFR - AA Normal >60 [facility] Comment on above: Result Comment: Canc elled via OM: MD Ordered Performed By: #### L 100.0500, L500.2500 ####[facility] [address] [place], [address] GAP Normal 5-15 [facility] Comment on above: Result Comment: Canc elled via OM: MD Ordered Performed By: #### L 100.0500, L500.2500 ####[facility] [address] [place], [address] GLU Normal 74-106 [facility] Comment on above: Result Comment: Canc elled via OM: MD Ordered Performed By: #### L 100.0500, L500.2500 ####[facility] [address] [place], [address] Potassium Normal 3.5-5.1 [facility] Comment on above: Result Comment: Canc elled via OM: MD Ordered Performed By: #### L 100.0500, L500.2500 ####[facility] [address] [place], [address] Basic Metabolic Profile (BMP) Normal 136-145 [facility] Comment on above: Result Comment: Canc elled via OM: MD Ordered Performed By: #### L 100.0500, L500.2500 ####[facility] [address] [place], [address] CBC-Complete Blood Cnt No Di ffon 02-28-2024 HCT Normal 40-54 [facility] Comment on above: Result Comment: Canc elled via OM: MD Ordered Performed By: #### L 100.0500, L500.2500 ####[facility] [address] [place], [address] HGB Normal 13.0-16.5 [facility] Comment on above: Result Comment: Canc elled via OM: MD Ordered Performed By: #### L 100.0500, L500.2500 ####[facility] [address] [place], [address] MCH Normal 27.0-32.0 [facility] Comment on above: Result Comment: Canc elled via OM: MD Ordered Performed By: #### L 100.0500, L500.2500 ####[facility] [address] [place], [address] MCHC Normal 32-36 [facility] Comment on above: Result Comment: Canc elled via OM: MD Ordered Performed By: #### L 100.0500, L500.2500 ####[facility] [address] [place], [address] MCV Normal 80-94 [facility] Comment on above: Result Comment: Canc elled via OM: MD Ordered Performed By: #### L 100.0500, L500.2500 ####[facility] [address] [place], [address] PLT Normal 150-450 [facility] Comment on above: Result Comment: Canc elled via OM: MD Ordered Performed By: #### L 100.0500, L500.2500 ####[facility] [address] [place], [address] RBC Normal 4.6-6.2 [facility] Comment on above: Result Comment: Canc elled via OM: MD Ordered Performed By: #### L 100.0500, L500.2500 ####[facility] [address] [place], [address] RDW CV Normal 11.6-14.6 [facility] Comment on above: Result Comment: Canc elled via OM: MD Ordered Performed By: #### L 100.0500, L500.2500 ####[facility] [address] [place], [address] RDW SD Normal 35.1-43.9 [facility] Comment on above: Result Comment: Canc elled via OM: MD Ordered Performed By: #### L 100.0500, L500.2500 ####[facility] [address] [place], [address] WBC Normal 4.4-11.0 [facility] Comment on above: Result Comment: Canc elled via OM: MD Ordered Performed By: #### L 100.0500, L500.2500 ####[facility] [address] [place], [address] Culture, Blood (WB)on 2023 CUB Blood cultures x2 fr om two different sites No growth in 5 days. Normal [facility] Comment on above: Performed By: #### M 200.1000 ####[facility] [address] [place], [address] Culture, Blood (WB)on 2023 CUB Blood cultures x2, f rom two different sites No growth in 5 days. Normal [facility] Comment on above: Performed By: #### M 200.1000 ####[facility] [address] [place], [address] Basic Metabolic Profile (BMP )on 02-26-2024 BUN/CRE 22.4 RATIO High 10-20 [facility] Comment on above: Performed By: #### L 100.0100, L500.2500 ####[facility] [address] [place], [address] CA,Total 8.7 mg/dL Normal 8.5-10.1 [facility] Comment on above: Performed By: #### L 100.0100, L500.2500 ####[facility] [address] [place], [address] Chloride [Moles/Vol] 112 mmol/L High 98-107 [facility] Comment on above: Performed By: #### L 100.0100, L500.2500 ####[facility] [address] [place], [address] CO2 [Moles/Vol] 24.0 mmol/L Normal 21.0-32.0 [facility] Comment on above: Performed By: #### L 100.0100, L500.2500 ####[facility] [address] [place], [address] Creatinine [Mass/Vol] 0.85 mg/dL Normal 0.70-1.30 [facility] Comment on above: Result Comment: The validity of the calculated GFR GFRAA in patients over70 years has not been determined. Clinical correlation isessential. Performed By: #### L 100.0100, L500.2500 ####[facility] [address] [place], [address] ECRCL 89.41 ml/min Normal [facility] Comment on above: Performed By: #### L 100.0100, L500.2500 ####[facility] [address] [place], [address] EST GFR - AA 112 mL/min Normal >60 [facility] Comment on above: Result Comment: Afri can Citizen [place] GFR Calc Performed By: #### L 100.0100, L500.2500 ####[facility] [address] [place], [address] GAP 4 Low 5-15 [facility] Comment on above: Performed By: #### L 100.0100, L500.2500 ####[facility] [address] [place], [address] GFR/1.73 sq M.predicted among non-blacks MDRD (S/P/Bld) [Vol rate/Area] 93 mL/min/{1.73_m2} Normal >60 [facility] Comment on above: Result Comment: Non- GFR Calc Performed By: #### L 100.0100, L500.2500 ####[facility] [address] [place], [address] Glucose [Mass/Vol] 94 mg/dL Normal 74-106 [facility] Comment on above: Performed By: #### L 100.0100, L500.2500 ####[facility] [address] [place], [address] Potassium [Moles/Vol] 3.8 mmol/L Normal 3.5-5.1 [facility] Comment on above: Performed By: #### L 100.0100, L500.2500 ####[facility] [address] [place], [address] Sodium [Moles/Vol] 140 mmol/L Normal 136-145 [facility] Comment on above: Performed By: #### L 100.0100, L500.2500 ####[facility] [address] [place], [address] Urea nitrogen [Mass/Vol] 19 mg/dL High 7-18 [facility] Comment on above: Performed By: #### L 100.0100, L500.2500 ####[facility] [address] [place], [address] CBC W/Diff, Automatedon 02-12 Absolute Lymph 1.05 X10 3/uL Normal 0.83-4.51 [facility] Comment on above: Performed By: #### L 100.0100, L500.2500 ####[facility] [address] [place], [address] Absolute Neut 3.4 X10 3/uL Normal 2.0-7.7 [facility] Comment on above: Performed By: #### L 100.0100, L500.2500 ####[facility] [address] [place], [address] Basophils/100 WBC (Bld) 0.8 % Normal 0-1 [facility] Comment on above: Performed By: #### L 100.0100, L500.2500 ####[facility] [address] [place], [address] Eosinophils/100 WBC (Bld) 2.4 % Normal 0-5 [facility] Comment on above: Performed By: #### L 100.0100, L500.2500 ####[facility] [address] [place], [address] Erythrocyte distribution width (RBC) [Ratio] 15.0 % High 11.6-14.6 [facility] Comment on above: Performed By: #### L 100.0100, L500.2500 ####[facility] [address] [place], [address] Hematocrit (Bld) [Volume fraction] 33.6 % Low 40-54 [facility] Comment on above: Performed By: #### L 100.0100, L500.2500 ####[facility] [address] [place], [address] Hemoglobin (Bld) [Mass/Vol] 10.7 g/dL Low 13.0-16.5 [facility] Comment on above: Performed By: #### L 100.0100, L500.2500 ####[facility] [address] [place], [address] IG% 0.400 Normal 0.0-0.9 [facility] Comment on above: Result Comment: IG% - Immature Granulocytes (promyelocytes, myelocytes andmetamyelocytes) > 1% indicates that a LEFT SHIFT is Present. Performed By: #### L 100.0100, L500.2500 ####[facility] [address] [place], [address] Lymphocytes/100 WBC (Bld) 20.6 % Normal 19-41 [facility] Comment on above: Performed By: #### L 100.0100, L500.2500 ####[facility] [address] [place], [address] MCH (RBC) [Entitic mass] 28.2 pg Normal 27.0-32.0 [facility] Comment on above: Performed By: #### L 100.0100, L500.2500 ####[facility] [address] [place], [address] MCHC (RBC) [Mass/Vol] 31.8 g/dL Low 32-36 [facility] Comment on above: Performed By: #### L 100.0100, L500.2500 ####[facility] [address] [place], [address] MCV (RBC) [Entitic vol] 88.7 fL Normal 80-94 [facility] Comment on above: Performed By: #### L 100.0100, L500.2500 ####[facility] [address] [place], [address] Monocytes/100 WBC (Bld) 8.6 % Normal 0-10 [facility] Comment on above: Performed By: #### L 100.0100, L500.2500 ####[facility] [address] [place], [address] Neutrophils/100 WBC (Bld) 67.2 % Normal 47-70 [facility] Comment on above: Performed By: #### L 100.0100, L500.2500 ####[facility] [address] [place], [address] Nucleated RBC (Bld) [#/Vol] 0 10*3/uL Normal 0-5 [facility] Comment on above: Performed By: #### L 100.0100, L500.2500 ####[facility] [address] [place], [address] Platelet mean volume (Bld) [Entitic vol] 10.0 fL Normal 6.2-12.0 [facility] Comment on above: Performed By: #### L 100.0100, L500.2500 ####[facility] [address] [place], [address] Platelets (Bld) [#/Vol] 217 10*3/uL Normal 150-450 [facility] Comment on above: Performed By: #### L 100.0100, L500.2500 ####[facility] [address] [place], [address] RBC (Bld) [#/Vol] 3.79 10*6/uL Low 4.6-6.2 [facility] Comment on above: Performed By: #### L 100.0100, L500.2500 ####[facility] [address] [place], [address] RDW SD 48.3 fl High 35.1-43.9 [facility] Comment on above: Performed By: #### L 100.0100, L500.2500 ####[facility] [address] [place], [address] WBC (Bld) [#/Vol] 5.1 10*3/uL Normal 4.4-11.0 [facility] Comment on above: Performed By: #### L 100.0100, L500.2500 ####[facility] [address] [place], [address] Urine Cultureon 02-26-2024 URC Normal [facility] Comment on above: Performed By: #### M 100.2200 ####[facility] [address] [place], [address] Basic Metabolic Profile (BMP )on 02-25-2024 BUN/CRE 23.2 RATIO High 10-20 [facility] Comment on above: Performed By: #### L 100.0100, L500.2500 ####[facility] [address] [place], [address] CA,Total 9.2 mg/dL Normal 8.5-10.1 [facility] Comment on above: Performed By: #### L 100.0100, L500.2500 ####[facility] [address] [place], [address] Chloride [Moles/Vol] 114 mmol/L High 98-107 [facility] Comment on above: Performed By: #### L 100.0100, L500.2500 ####[facility] [address] [place], [address] CO2 [Moles/Vol] 22.0 mmol/L Normal 21.0-32.0 [facility] Comment on above: Performed By: #### L 100.0100, L500.2500 ####[facility] [address] [place], [address] Creatinine [Mass/Vol] 0.91 mg/dL Normal 0.70-1.30 [facility] Comment on above: Result Comment: The validity of the calculated GFR GFRAA in patients over70 years has not been determined. Clinical correlation isessential. Performed By: #### L 100.0100, L500.2500 ####[facility] [address] [place], [address] ECRCL 83.52 ml/min Normal [facility] Comment on above: Performed By: #### L 100.0100, L500.2500 ####[facility] [address] [place], [address] EST GFR - AA 104 mL/min Normal >60 [facility] Comment on above: Result Comment: Afri can Citizen [place] GFR Calc Performed By: #### L 100.0100, L500.2500 ####[facility] [address] [place], [address] GAP 5 Normal 5-15 [facility] Comment on above: Performed By: #### L 100.0100, L500.2500 ####[facility] [address] [place], [address] GFR/1.73 sq M.predicted among non-blacks MDRD (S/P/Bld) [Vol rate/Area] 86 mL/min/{1.73_m2} Normal >60 [facility] Comment on above: Result Comment: Non- GFR Calc Performed By: #### L 100.0100, L500.2500 ####[facility] [address] [place], [address] Glucose [Mass/Vol] 95 mg/dL Normal 74-106 [facility] Comment on above: Performed By: #### L 100.0100, L500.2500 ####[facility] [address] [place], [address] Potassium [Moles/Vol] 4.0 mmol/L Normal 3.5-5.1 [facility] Comment on above: Performed By: #### L 100.0100, L500.2500 ####[facility] [address] [place], [address] Sodium [Moles/Vol] 141 mmol/L Normal 136-145 [facility] Comment on above: Performed By: #### L 100.0100, L500.2500 ####[facility] [address] [place], [address] Urea nitrogen [Mass/Vol] 21 mg/dL High 7-18 [facility] Comment on above: Performed By: #### L 100.0100, L500.2500 ####[facility] [address] [place], [address] CBC W/Diff, Automatedon 12-2023 Absolute Lymph 0.97 X10 3/uL Normal 0.83-4.51 [facility] Comment on above: Performed By: #### L 100.0100, L500.2500 ####[facility] [address] [place], [address] Absolute Neut 4.3 X10 3/uL Normal 2.0-7.7 [facility] Comment on above: Performed By: #### L 100.0100, L500.2500 ####[facility] [address] [place], [address] Basophils/100 WBC (Bld) 0.9 % Normal 0-1 [facility] Comment on above: Performed By: #### L 100.0100, L500.2500 ####[facility] [address] [place], [address] Eosinophils/100 WBC (Bld) 1.7 % Normal 0-5 [facility] Comment on above: Performed By: #### L 100.0100, L500.2500 ####[facility] [address] [place], [address] Erythrocyte distribution width (RBC) [Ratio] 15.0 % High 11.6-14.6 [facility] Comment on above: Performed By: #### L 100.0100, L500.2500 ####[facility] [address] [place], [address] Hematocrit (Bld) [Volume fraction] 34.0 % Low 40-54 [facility] Comment on above: Performed By: #### L 100.0100, L500.2500 ####[facility] [address] [place], [address] Hemoglobin (Bld) [Mass/Vol] 11.0 g/dL Low 13.0-16.5 [facility] Comment on above: Performed By: #### L 100.0100, L500.2500 ####[facility] [address] [place], [address] IG% 0.500 Normal 0.0-0.9 [facility] Comment on above: Result Comment: IG% - Immature Granulocytes (promyelocytes, myelocytes andmetamyelocytes) > 1% indicates that a LEFT SHIFT is Present. Performed By: #### L 100.0100, L500.2500 ####[facility] [address] [place], [address] Lymphocytes/100 WBC (Bld) 16.6 % Low 19-41 [facility] Comment on above: Performed By: #### L 100.0100, L500.2500 ####[facility] [address] [place], [address] MCH (RBC) [Entitic mass] 28.7 pg Normal 27.0-32.0 [facility] Comment on above: Performed By: #### L 100.0100, L500.2500 ####[facility] [address] [place], [address] MCHC (RBC) [Mass/Vol] 32.4 g/dL Normal 32-36 [facility] Comment on above: Performed By: #### L 100.0100, L500.2500 ####[facility] [address] [place], [address] MCV (RBC) [Entitic vol] 88.8 fL Normal 80-94 [facility] Comment on above: Performed By: #### L 100.0100, L500.2500 ####[facility] [address] [place], [address] Monocytes/100 WBC (Bld) 6.2 % Normal 0-10 [facility] Comment on above: Performed By: #### L 100.0100, L500.2500 ####[facility] [address] [place], [address] Neutrophils/100 WBC (Bld) 74.1 % High 47-70 [facility] Comment on above: Performed By: #### L 100.0100, L500.2500 ####[facility] [address] [place], [address] Nucleated RBC (Bld) [#/Vol] 0 10*3/uL Normal 0-5 [facility] Comment on above: Performed By: #### L 100.0100, L500.2500 ####[facility] [address] [place], [address] Platelet mean volume (Bld) [Entitic vol] 9.8 fL Normal 6.2-12.0 [facility] Comment on above: Performed By: #### L 100.0100, L500.2500 ####[facility] [address] [place], [address] Platelets (Bld) [#/Vol] 208 10*3/uL Normal 150-450 [facility] Comment on above: Performed By: #### L 100.0100, L500.2500 ####[facility] [address] [place], [address] RBC (Bld) [#/Vol] 3.83 10*6/uL Low 4.6-6.2 [facility] Comment on above: Performed By: #### L 100.0100, L500.2500 ####[facility] [address] [place], [address] RDW SD 49.0 fl High 35.1-43.9 [facility] Comment on above: Performed By: #### L 100.0100, L500.2500 ####[facility] [address] [place], [address] WBC (Bld) [#/Vol] 5.8 10*3/uL Normal 4.4-11.0 [facility] Comment on above: Performed By: #### L 100.0100, L500.2500 ####[facility] [address] [place], [address] Basic Metabolic Profile (BMP )on 02-24-2024 BUN/CRE 24.9 RATIO High 10-20 [facility] Comment on above: Performed By: #### L 100.0100, L500.2500 ####[facility] [address] [place], [address] CA,Total 8.7 mg/dL Normal 8.5-10.1 [facility] Comment on above: Performed By: #### L 100.0100, L500.2500 ####[facility] [address] [place], [address] Chloride [Moles/Vol] 115 mmol/L High 98-107 [facility] Comment on above: Performed By: #### L 100.0100, L500.2500 ####[facility] [address] [place], [address] CO2 [Moles/Vol] 22.0 mmol/L Normal 21.0-32.0 [facility] Comment on above: Performed By: #### L 100.0100, L500.2500 ####[facility] [address] [place], [address] Creatinine [Mass/Vol] 0.84 mg/dL Normal 0.70-1.30 [facility] Comment on above: Result Comment: The validity of the calculated GFR GFRAA in patients over70 years has not been determined. Clinical correlation isessential. Performed By: #### L 100.0100, L500.2500 ####[facility] [address] [place], [address] ECRCL 89.85 ml/min Normal [facility] Comment on above: Performed By: #### L 100.0100, L500.2500 ####[facility] [address] [place], [address] EST GFR - AA 113 mL/min Normal >60 [facility] Comment on above: Result Comment: Afri can Citizen [place] GFR Calc Performed By: #### L 100.0100, L500.2500 ####[facility] [address] [place], [address] GAP 4 Low 5-15 [facility] Comment on above: Performed By: #### L 100.0100, L500.2500 ####[facility] [address] [place], [address] GFR/1.73 sq M.predicted among non-blacks MDRD (S/P/Bld) [Vol rate/Area] 94 mL/min/{1.73_m2} Normal >60 [facility] Comment on above: Result Comment: Non- GFR Calc Performed By: #### L 100.0100, L500.2500 ####[facility] [address] [place], [address] Glucose [Mass/Vol] 104 mg/dL Normal 74-106 [facility] Comment on above: Result Comment: Fast ing Glucose result from 100 to 125 mg/dLsuggests IMPAIRED HOMEOSTASIS per A.D.A. criteria. Performed By: #### L 100.0100, L500.2500 ####[facility] [address] [place], [address] Potassium [Moles/Vol] 3.7 mmol/L Normal 3.5-5.1 [facility] Comment on above: Performed By: #### L 100.0100, L500.2500 ####[facility] [address] [place], [address] Sodium [Moles/Vol] 141 mmol/L Normal 136-145 [facility] Comment on above: Performed By: #### L 100.0100, L500.2500 ####[facility] [address] [place], [address] Urea nitrogen [Mass/Vol] 21 mg/dL High 7-18 [facility] Comment on above: Performed By: #### L 100.0100, L500.2500 ####[facility] [address] [place], [address] CBC W/Diff, Automatedon 12- 2-2023 Absolute Lymph 1.01 X10 3/uL Normal 0.83-4.51 [facility] Comment on above: Performed By: #### L 100.0100, L500.2500 ####[facility] [address] [place], [address] Absolute Neut 3.9 X10 3/uL Normal 2.0-7.7 [facility] Comment on above: Performed By: #### L 100.0100, L500.2500 ####[facility] [address] [place], [address] Basophils/100 WBC (Bld) 0.7 % Normal 0-1 [facility] Comment on above: Performed By: #### L 100.0100, L500.2500 ####[facility] [address] [place], [address] Eosinophils/100 WBC (Bld) 2.0 % Normal 0-5 [facility] Comment on above: Performed By: #### L 100.0100, L500.2500 ####[facility] [address] [place], [address] Erythrocyte distribution width (RBC) [Ratio] 15.1 % High 11.6-14.6 [facility] Comment on above: Performed By: #### L 100.0100, L500.2500 ####[facility] [address] [place], [address] Hematocrit (Bld) [Volume fraction] 34.1 % Low 40-54 [facility] Comment on above: Performed By: #### L 100.0100, L500.2500 ####[facility] [address] [place], [address] Hemoglobin (Bld) [Mass/Vol] 10.9 g/dL Low 13.0-16.5 [facility] Comment on above: Performed By: #### L 100.0100, L500.2500 ####[facility] [address] [place], [address] IG% 0.600 Normal 0.0-0.9 [facility] Comment on above: Result Comment: IG% - Immature Granulocytes (promyelocytes, myelocytes andmetamyelocytes) > 1% indicates that a LEFT SHIFT is Present. Performed By: #### L 100.0100, L500.2500 ####[facility] [address] [place], [address] Lymphocytes/100 WBC (Bld) 18.5 % Low 19-41 [facility] Comment on above: Performed By: #### L 100.0100, L500.2500 ####[facility] [address] [place], [address] MCH (RBC) [Entitic mass] 28.8 pg Normal 27.0-32.0 [facility] Comment on above: Performed By: #### L 100.0100, L500.2500 ####[facility] [address] [place], [address] MCHC (RBC) [Mass/Vol] 32.0 g/dL Normal 32-36 [facility] Comment on above: Performed By: #### L 100.0100, L500.2500 ####[facility] [address] [place], [address] MCV (RBC) [Entitic vol] 90.0 fL Normal 80-94 [facility] Comment on above: Performed By: #### L 100.0100, L500.2500 ####[facility] [address] [place], [address] Monocytes/100 WBC (Bld) 6.4 % Normal 0-10 [facility] Comment on above: Performed By: #### L 100.0100, L500.2500 ####[facility] [address] [place], [address] Neutrophils/100 WBC (Bld) 71.8 % High 47-70 [facility] Comment on above: Performed By: #### L 100.0100, L500.2500 ####[facility] [address] [place], [address] Nucleated RBC (Bld) [#/Vol] 0 10*3/uL Normal 0-5 [facility] Comment on above: Performed By: #### L 100.0100, L500.2500 ####[facility] [address] [place], [address] Platelet mean volume (Bld) [Entitic vol] 9.7 fL Normal 6.2-12.0 [facility] Comment on above: Performed By: #### L 100.0100, L500.2500 ####[facility] [address] [place], [address] Platelets (Bld) [#/Vol] 202 10*3/uL Normal 150-450 [facility] Comment on above: Performed By: #### L 100.0100, L500.2500 ####[facility] [address] [place], [address] RBC (Bld) [#/Vol] 3.79 10*6/uL Low 4.6-6.2 [facility] Comment on above: Performed By: #### L 100.0100, L500.2500 ####[facility] [address] [place], [address] RDW SD 49.6 fl High 35.1-43.9 [facility] Comment on above: Performed By: #### L 100.0100, L500.2500 ####[facility] [address] [place], [address] WBC (Bld) [#/Vol] 5.5 10*3/uL Normal 4.4-11.0 [facility] Comment on above: Performed By: #### L 100.0100, L500.2500 ####[facility] [address] [place], [address] CBC W/Diff, Automatedon 12 Absolute Lymph 0.98 X10 3/uL Normal 0.83-4.51 [facility] Comment on above: Performed By: #### L 100.0100, L500.4050 ####[facility] [address] [place], [address] Absolute Neut 4.4 X10 3/uL Normal 2.0-7.7 [facility] Comment on above: Performed By: #### L 100.0100, L500.4050 ####[facility] [address] [place], [address] Basophils/100 WBC (Bld) 0.7 % Normal 0-1 [facility] Comment on above: Performed By: #### L 100.0100, L500.4050 ####[facility] [address] [place], [address] Eosinophils/100 WBC (Bld) 1.5 % Normal 0-5 [facility] Comment on above: Performed By: #### L 100.0100, L500.4050 ####[facility] [address] [place], [address] Erythrocyte distribution width (RBC) [Ratio] 14.7 % High 11.6-14.6 [facility] Comment on above: Performed By: #### L 100.0100, L500.4050 ####[facility] [address] [place], [address] Hematocrit (Bld) [Volume fraction] 33.4 % Low 40-54 [facility] Comment on above: Performed By: #### L 100.0100, L500.4050 ####[facility] [address] [place], [address] Hemoglobin (Bld) [Mass/Vol] 10.8 g/dL Low 13.0-16.5 [facility] Comment on above: Performed By: #### L 100.0100, L500.4050 ####[facility] [address] [place], [address] IG% 1.000 High 0.0-0.9 [facility] Comment on above: Result Comment: IG% - Immature Granulocytes (promyelocytes, myelocytes andmetamyelocytes) > 1% indicates that a LEFT SHIFT is Present. Performed By: #### L 100.0100, L500.4050 ####[facility] [address] [place], [address] Lymphocytes/100 WBC (Bld) 16.4 % Low 19-41 [facility] Comment on above: Performed By: #### L 100.0100, L500.4050 ####[facility] [address] [place], [address] MCH (RBC) [Entitic mass] 28.6 pg Normal 27.0-32.0 [facility] Comment on above: Performed By: #### L 100.0100, L500.4050 ####[facility] [address] [place], [address] MCHC (RBC) [Mass/Vol] 32.3 g/dL Normal 32-36 [facility] Comment on above: Performed By: #### L 100.0100, L500.4050 ####[facility] [address] [place], [address] MCV (RBC) [Entitic vol] 88.6 fL Normal 80-94 [facility] Comment on above: Performed By: #### L 100.0100, L500.4050 ####[facility] [address] [place], [address] Monocytes/100 WBC (Bld) 6.9 % Normal 0-10 [facility] Comment on above: Performed By: #### L 100.0100, L500.4050 ####[facility] [address] [place], [address] Neutrophils/100 WBC (Bld) 73.5 % High 47-70 [facility] Comment on above: Performed By: #### L 100.0100, L500.4050 ####[facility] [address] [place], [address] Nucleated RBC (Bld) [#/Vol] 0 10*3/uL Normal 0-5 [facility] Comment on above: Performed By: #### L 100.0100, L500.4050 ####[facility] [address] [place], [address] Platelet mean volume (Bld) [Entitic vol] 9.9 fL Normal 6.2-12.0 [facility] Comment on above: Performed By: #### L 100.0100, L500.4050 ####[facility] [address] [place], [address] Platelets (Bld) [#/Vol] 209 10*3/uL Normal 150-450 [facility] Comment on above: Performed By: #### L 100.0100, L500.4050 ####[facility] [address] [place], [address] RBC (Bld) [#/Vol] 3.77 10*6/uL Low 4.6-6.2 [facility] Comment on above: Performed By: #### L 100.0100, L500.4050 ####[facility] [address] [place], [address] RDW SD 47.8 fl High 35.1-43.9 [facility] Comment on above: Performed By: #### L 100.0100, L500.4050 ####[facility] [address] [place], [address] WBC (Bld) [#/Vol] 6.0 10*3/uL Normal 4.4-11.0 [facility] Comment on above: Performed By: #### L 100.0100, L500.4050 ####[facility] [address] [place], [address] CRPon 02-23-2024 C-REACTIVE PROT 95.80 mg/L High 0.0-3.0 [facility] Comment on above: Order Comment: Comme nts: May add to ED labs Result Comment: C-Re active Protein (CRP) provides useful information for thediagnosis, therapy and monitoring of inflammatory processesand associated diseases. For the evaluation of Relative Riskfor Cardiovascular Disease, a High Sensitivity CRP (HSCRP)should be ordered. Performed By: #### L 101.9900, L501.6710 ####[facility] [address] [place], [address] Comprehensive Metabolic Prof ilon 02-23-2024 Albumin [Mass/Vol] 2.9 g/dL Low 3.2-5.0 [facility] Comment on above: Performed By: #### L 100.0100, L500.4050 ####[facility] [address] [place], [address] Albumin/Globulin [Mass ratio] 0.8 {ratio} Low 0.9-2.4 [facility] Comment on above: Performed By: #### L 100.0100, L500.4050 ####[facility] [address] [place], [address] ALK P 48 U/L Normal 45-117 [facility] Comment on above: Performed By: #### L 100.0100, L500.4050 ####[facility] [address] [place], [address] ALT [Catalytic activity/Vol] 31 U/L Normal 16-61 [facility] Comment on above: Performed By: #### L 100.0100, L500.4050 ####[facility] [address] [place], [address] AST [Catalytic activity/Vol] 20 U/L Normal 15-37 [facility] Comment on above: Performed By: #### L 100.0100, L500.4050 ####[facility] [address] [place], [address] Bilirubin [Mass/Vol] 0.90 mg/dL Normal 0.20-1.00 [facility] Comment on above: Result Comment: For patients on eltrombopag therapy, use of Dimension [place] TBIL is not recommended. Performed By: #### L 100.0100, L500.4050 ####[facility] [address] [place], [address] BUN/CRE 19.7 RATIO Normal 10-20 [facility] Comment on above: Performed By: #### L 100.0100, L500.4050 ####[facility] [address] [place], [address] CA,Total 8.6 mg/dL Normal 8.5-10.1 [facility] Comment on above: Performed By: #### L 100.0100, L500.4050 ####[facility] [address] [place], [address] Chloride [Moles/Vol] 114 mmol/L High 98-107 [facility] Comment on above: Performed By: #### L 100.0100, L500.4050 ####[facility] [address] [place], [address] CO2 [Moles/Vol] 23.0 mmol/L Normal 21.0-32.0 [facility] Comment on above: Performed By: #### L 100.0100, L500.4050 ####[facility] [address] [place], [address] Creatinine [Mass/Vol] 0.81 mg/dL Normal 0.70-1.30 [facility] Comment on above: Result Comment: The validity of the calculated GFR GFRAA in patients over70 years has not been determined. Clinical correlation isessential. Performed By: #### L 100.0100, L500.4050 ####[facility] [address] [place], [address] ECRCL 92.86 ml/min Normal [facility] Comment on above: Performed By: #### L 100.0100, L500.4050 ####[facility] [address] [place], [address] EST GFR - AA 118 mL/min Normal >60 [facility] Comment on above: Result Comment: Afri can [place] GFR Calc Performed By: #### L 100.0100, L500.4050 ####[facility] [address] [place], [address] GAP 5 Normal 5-15 [facility] Comment on above: Performed By: #### L 100.0100, L500.4050 ####[facility] [address] [place], [address] GFR/1.73 sq M.predicted among non-blacks MDRD (S/P/Bld) [Vol rate/Area] 98 mL/min/{1.73_m2} Normal >60 [facility] Comment on above: Result Comment: Non- GFR Calc Performed By: #### L 100.0100, L500.4050 ####[facility] [address] [place], [address] Globulin (S) [Mass/Vol] 3.8 g/dL Normal 2.2-4.2 [facility] Comment on above: Performed By: #### L 100.0100, L500.4050 ####[facility] [address] [place], [address] Glucose [Mass/Vol] 96 mg/dL Normal 74-106 [facility] Comment on above: Performed By: #### L 100.0100, L500.4050 ####[facility] [address] [place], [address] Potassium [Moles/Vol] 3.3 mmol/L Low 3.5-5.1 [facility] Comment on above: Performed By: #### L 100.0100, L500.4050 ####[facility] [address] [place], [address] Sodium [Moles/Vol] 142 mmol/L Normal 136-145 [facility] Comment on above: Performed By: #### L 100.0100, L500.4050 ####[facility] [address] [place], [address] T PROT 6.7 g/dL Normal 6.4-8.2 [facility] Comment on above: Performed By: #### L 100.0100, L500.4050 ####[facility] [address] [place], [address] Urea nitrogen [Mass/Vol] 16 mg/dL Normal 7-18 [facility] Comment on above: Performed By: #### L 100.0100, L500.4050 ####[facility] [address] [place], [address] Consultation - Infectious Dx on 02-23-2024 Consultation - Infectious Dx Normal [facility] Erythrocyte Sed Rateon 02-22 SED RATE 45 mm/hr High 0-20 [facility] Comment on above: Performed By: #### L 101.9900, L501.6710 ####[facility] [address] [place], [address] RESPIRATORY PANEL MOLECULARo n 02-23-2024 RP PANEL Normal [facility] Comment on above: Performed By: #### M 100.638 ####[facility] [address] [place], [address] Basic Metabolic Profile (BMP )on 02-22-2024 BUN/CRE 17.8 RATIO Normal 01-01 [facility] Comment on above: Performed By: #### L 100.0100, L500.2500, L503.6005 ####[facility] [address] [place], [address] CA,Total 8.9 mg/dL Normal 8.5-10.1 [facility] Comment on above: Performed By: #### L 100.0100, L500.2500, L503.6005 ####[facility] [address] [place], [address] Chloride [Moles/Vol] 112 mmol/L High 98-107 [facility] Comment on above: Performed By: #### L 100.0100, L500.2500, L503.6005 ####[facility] [address] [place], [address] CO2 [Moles/Vol] 23.0 mmol/L Normal 21.0-32.0 [facility] Comment on above: Performed By: #### L 100.0100, L500.2500, L503.6005 ####[facility] [address] [place], [address] Creatinine [Mass/Vol] 0.90 mg/dL Normal 0.70-1.30 [facility] Comment on above: Result Comment: The validity of the calculated GFR GFRAA in patients over70 years has not been determined. Clinical correlation isessential. Performed By: #### L 100.0100, L500.2500, L503.6005 ####[facility] [address] [place], [address] ECRCL 86.00 ml/min Normal [facility] Comment on above: Performed By: #### L 100.0100, L500.2500, L503.6005 ####[facility] [address] [place], [address] EST GFR - AA 105 mL/min Normal >60 [facility] Comment on above: Result Comment: Afri can [place] GFR Calc Performed By: #### L 100.0100, L500.2500, L503.6005 ####[facility] [address] [place], [address] GAP 4 Low 5-15 [facility] Comment on above: Performed By: #### L 100.0100, L500.2500, L503.6005 ####[facility] [address] [place], [address] GFR/1.73 sq M.predicted among non-blacks MDRD (S/P/Bld) [Vol rate/Area] 87 mL/min/{1.73_m2} Normal >60 [facility] Comment on above: Result Comment: Non- GFR Calc Performed By: #### L 100.0100, L500.2500, L503.6005 ####[facility] [address] [place], [address] Glucose [Mass/Vol] 125 mg/dL High 74-106 [facility] Comment on above: Result Comment: Fast ing Glucose result from 100 to 125 mg/dLsuggests IMPAIRED HOMEOSTASIS per A.D.A. criteria. Performed By: #### L 100.0100, L500.2500, L503.6005 ####[facility] [address] [place], [address] Potassium [Moles/Vol] 3.9 mmol/L Normal 3.5-5.1 [facility] Comment on above: Performed By: #### L 100.0100, L500.2500, L503.6005 ####[facility] [address] [place], [address] Sodium [Moles/Vol] 138 mmol/L Normal 136-145 [facility] Comment on above: Performed By: #### L 100.0100, L500.2500, L503.6005 ####[facility] [address] [place], [address] Urea nitrogen [Mass/Vol] 16 mg/dL Normal 7-18 [facility] Comment on above: Performed By: #### L 100.0100, L500.2500, L503.6005 ####[facility] [address] [place], [address] CBC W/Diff, Automatedon 12-1 0-4 Absolute Lymph 0.92 X10 3/uL Normal 0.83-4.51 [facility] Comment on above: Performed By: #### L 100.0100, L500.2500, L503.6005 ####[facility] [address] [place], [address] Absolute Neut 6.1 X10 3/uL Normal 2.0-7.7 [facility] Comment on above: Performed By: #### L 100.0100, L500.2500, L503.6005 ####[facility] [address] [place], [address] Basophils/100 WBC (Bld) 0.4 % Normal 0-1 [facility] Comment on above: Performed By: #### L 100.0100, L500.2500, L503.6005 ####[facility] [address] [place], [address] Eosinophils/100 WBC (Bld) 0.9 % Normal 0-5 [facility] Comment on above: Performed By: #### L 100.0100, L500.2500, L503.6005 ####[facility] [address] [place], [address] Erythrocyte distribution width (RBC) [Ratio] 14.8 % High 11.6-14.6 [facility] Comment on above: Performed By: #### L 100.0100, L500.2500, L503.6005 ####[facility] [address] [place], [address] Hematocrit (Bld) [Volume fraction] 36.4 % Low 40-54 [facility] Comment on above: Performed By: #### L 100.0100, L500.2500, L503.6005 ####[facility] [address] [place], [address] Hemoglobin (Bld) [Mass/Vol] 11.4 g/dL Low 13.0-16.5 [facility] Comment on above: Performed By: #### L 100.0100, L500.2500, L503.6005 ####[facility] [address] [place], [address] IG% 0.400 Normal 0.0-0.9 [facility] Comment on above: Result Comment: IG% - Immature Granulocytes (promyelocytes, myelocytes andmetamyelocytes) > 1% indicates that a LEFT SHIFT is Present. Performed By: #### L 100.0100, L500.2500, L503.6005 ####[facility] [address] [place], [address] Lymphocytes/100 WBC (Bld) 11.9 % Low 19-41 [facility] Comment on above: Performed By: #### L 100.0100, L500.2500, L503.6005 ####[facility] [address] [place], [address] MCH (RBC) [Entitic mass] 28.4 pg Normal 27.0-32.0 [facility] Comment on above: Performed By: #### L 100.0100, L500.2500, L503.6005 ####[facility] [address] [place], [address] MCHC (RBC) [Mass/Vol] 31.3 g/dL Low 32-36 [facility] Comment on above: Performed By: #### L 100.0100, L500.2500, L503.6005 ####[facility] [address] [place], [address] MCV (RBC) [Entitic vol] 90.8 fL Normal 80-94 [facility] Comment on above: Performed By: #### L 100.0100, L500.2500, L503.6005 ####[facility] [address] [place], [address] Monocytes/100 WBC (Bld) 7.8 % Normal 0-10 [facility] Comment on above: Performed By: #### L 100.0100, L500.2500, L503.6005 ####[facility] [address] [place], [address] Neutrophils/100 WBC (Bld) 78.6 % High 47-70 [facility] Comment on above: Performed By: #### L 100.0100, L500.2500, L503.6005 ####[facility] [address] [place], [address] Nucleated RBC (Bld) [#/Vol] 0 10*3/uL Normal 0-5 [facility] Comment on above: Performed By: #### L 100.0100, L500.2500, L503.6005 ####[facility] [address] [place], [address] Platelet mean volume (Bld) [Entitic vol] 10.9 fL Normal 6.2-12.0 [facility] Comment on above: Performed By: #### L 100.0100, L500.2500, L503.6005 ####[facility] [address] [place], [address] Platelets (Bld) [#/Vol] 223 10*3/uL Normal 150-450 [facility] Comment on above: Performed By: #### L 100.0100, L500.2500, L503.6005 ####[facility] [address] [place], [address] RBC (Bld) [#/Vol] 4.01 10*6/uL Low 4.6-6.2 [facility] Comment on above: Performed By: #### L 100.0100, L500.2500, L503.6005 ####[facility] [address] [place], [address] RDW SD 49.7 fl High 35.1-43.9 [facility] Comment on above: Performed By: #### L 100.0100, L500.2500, L503.6005 ####[facility] [address] [place], [address] WBC (Bld) [#/Vol] 7.7 10*3/uL Normal 4.4-11.0 [facility] Comment on above: Performed By: #### L 100.0100, L500.2500, L503.6005 ####[facility] [address] [place], [address] Emergency Department Summary on 02-22-2024 Emergency Department Summary Normal [facility] H AND P Exam - Hospitaliston 02-22-2024 H&P Exam - Hospitalist Normal [facility] Lactic Acidon 02-22-2024 Lactate [Moles/Vol] 0.9 mmol/L Normal 0.4-1.9 [facility] Comment on above: Order Comment: Y Performed By: #### L 100.0100, L500.2500, L503.6005 ####[facility] [address] [place], [address] Magnesiumon 02-22-2024 Magnesium [Mass/Vol] 2.4 mg/dL Normal 1.6-2.6 [facility] Comment on above: Order Comment: Comme nts: May add to ED labsComments: may add to ED labs Performed By: #### L 509.7000, L501.2300, L501.5200 ####[facility] [address] [place], [address] Phosphoruson 02-22-2024 Phosphate [Mass/Vol] 2.5 mg/dL Normal 2.5-4.9 [facility] Comment on above: Order Comment: Comme nts: May add to ED labsComments: may add to ED labs Performed By: #### L 509.7000, L501.2300, L501.5200 ####[facility] [address] [place], [address] Procalcitoninon 02-22-2024 Procalcitonin 0.48 ng/mL High 0.00-0.09 [facility] Comment on above: Result Comment: A [...] Performed By: #### L 509.7000, L501.2300, L501.5200 ####[facility] [address] [place], [address] CBC W/Diff, Automatedon 12-0 9-2024 Absolute Lymph 0.83 X10 3/uL Normal 0.83-4.51 [facility] Comment on above: Performed By: #### L 100.0100, L500.4050, L503.6005 ####[facility] [address] [place], [address] Absolute Neut 7.5 X10 3/uL Normal 2.0-7.7 [facility] Comment on above: Performed By: #### L 100.0100, L500.4050, L503.6005 ####[facility] [address] [place], [address] Basophils/100 WBC (Bld) 0.4 % Normal 0-1 [facility] Comment on above: Performed By: #### L 100.0100, L500.4050, L503.6005 ####[facility] [address] [place], [address] Eosinophils/100 WBC (Bld) 1.0 % Normal 0-5 [facility] Comment on above: Performed By: #### L 100.0100, L500.4050, L503.6005 ####[facility] [address] [place], [address] Erythrocyte distribution width (RBC) [Ratio] 14.8 % High 11.6-14.6 [facility] Comment on above: Performed By: #### L 100.0100, L500.4050, L503.6005 ####[facility] [address] [place], [address] Hematocrit (Bld) [Volume fraction] 34.8 % Low 40-54 [facility] Comment on above: Performed By: #### L 100.0100, L500.4050, L503.6005 ####[facility] [address] [place], [address] Hemoglobin (Bld) [Mass/Vol] 11.5 g/dL Low 13.0-16.5 [facility] Comment on above: Performed By: #### L 100.0100, L500.4050, L503.6005 ####[facility] [address] [place], [address] IG% 0.700 Normal 0.0-0.9 [facility] Comment on above: Result Comment: IG% - Immature Granulocytes (promyelocytes, myelocytes andmetamyelocytes) > 1% indicates that a LEFT SHIFT is Present. Performed By: #### L 100.0100, L500.4050, L503.6005 ####[facility] [address] [place], [address] Lymphocytes/100 WBC (Bld) 9.1 % Low 19-41 [facility] Comment on above: Performed By: #### L 100.0100, L500.4050, L503.6005 ####[facility] [address] [place], [address] MCH (RBC) [Entitic mass] 29.5 pg Normal 27.0-32.0 [facility] Comment on above: Performed By: #### L 100.0100, L500.4050, L503.6005 ####[facility] [address] [place], [address] MCHC (RBC) [Mass/Vol] 33.0 g/dL Normal 32-36 [facility] Comment on above: Performed By: #### L 100.0100, L500.4050, L503.6005 ####[facility] [address] [place], [address] MCV (RBC) [Entitic vol] 89.2 fL Normal 80-94 [facility] Comment on above: Performed By: #### L 100.0100, L500.4050, L503.6005 ####[facility] [address] [place], [address] Monocytes/100 WBC (Bld) 7.2 % Normal 0-10 [facility] Comment on above: Performed By: #### L 100.0100, L500.4050, L503.6005 ####[facility] [address] [place], [address] Neutrophils/100 WBC (Bld) 81.6 % High 47-70 [facility] Comment on above: Performed By: #### L 100.0100, L500.4050, L503.6005 ####[facility] [address] [place], [address] Nucleated RBC (Bld) [#/Vol] 0 10*3/uL Normal 0-5 [facility] Comment on above: Performed By: #### L 100.0100, L500.4050, L503.6005 ####[facility] [address] [place], [address] Platelet mean volume (Bld) [Entitic vol] 10.5 fL Normal 6.2-12.0 [facility] Comment on above: Performed By: #### L 100.0100, L500.4050, L503.6005 ####[facility] [address] [place], [address] Platelets (Bld) [#/Vol] 177 10*3/uL Normal 150-450 [facility] Comment on above: Performed By: #### L 100.0100, L500.4050, L503.6005 ####[facility] [address] [place], [address] RBC (Bld) [#/Vol] 3.90 10*6/uL Low 4.6-6.2 [facility] Comment on above: Performed By: #### L 100.0100, L500.4050, L503.6005 ####[facility] [address] [place], [address] RDW SD 47.8 fl High 35.1-43.9 [facility] Comment on above: Performed By: #### L 100.0100, L500.4050, L503.6005 ####[facility] [address] [place], [address] WBC (Bld) [#/Vol] 9.2 10*3/uL Normal 4.4-11.0 [facility] Comment on above: Performed By: #### L 100.0100, L500.4050, L503.6005 ####[facility] [address] [place], [address] Chest 1 View (Portable)on Chest 1 View (Portable) Normal [facility] Comprehensive Metabolic Prof ilon 02-21-2024 Albumin [Mass/Vol] 2.9 g/dL Low 3.2-5.0 [facility] Comment on above: Performed By: #### L 100.0100, L500.4050, L503.6005 ####[facility] [address] [place], [address] Albumin/Globulin [Mass ratio] 0.7 {ratio} Low 0.9-2.4 [facility] Comment on above: Performed By: #### L 100.0100, L500.4050, L503.6005 ####[facility] [address] [place], [address] ALK P 52 U/L Normal 45-117 [facility] Comment on above: Performed By: #### L 100.0100, L500.4050, L503.6005 ####[facility] [address] [place], [address] ALT [Catalytic activity/Vol] 30 U/L Normal 16-61 [facility] Comment on above: Performed By: #### L 100.0100, L500.4050, L503.6005 ####[facility] [address] [place], [address] AST [Catalytic activity/Vol] 27 U/L Normal 15-37 [facility] Comment on above: Performed By: #### L 100.0100, L500.4050, L503.6005 ####[facility] [address] [place], [address] Bilirubin [Mass/Vol] 0.70 mg/dL Normal 0.20-1.00 [facility] Comment on above: Result Comment: For patients on eltrombopag therapy, use of Dimension [place] TBIL is not recommended. Performed By: #### L 100.0100, L500.4050, L503.6005 ####[facility] [address] [place], [address] BUN/CRE 15.1 RATIO Normal 10-20 [facility] Comment on above: Performed By: #### L 100.0100, L500.4050, L503.6005 ####[facility] [address] [place], [address] CA,Total 8.5 mg/dL Normal 8.5-10.1 [facility] Comment on above: Performed By: #### L 100.0100, L500.4050, L503.6005 ####[facility] [address] [place], [address] Chloride [Moles/Vol] 113 mmol/L High 98-107 [facility] Comment on above: Performed By: #### L 100.0100, L500.4050, L503.6005 ####[facility] [address] [place], [address] CO2 [Moles/Vol] 25.0 mmol/L Normal 21.0-32.0 [facility] Comment on above: Performed By: #### L 100.0100, L500.4050, L503.6005 ####[facility] [address] [place], [address] Creatinine [Mass/Vol] 0.93 mg/dL Normal 0.70-1.30 [facility] Comment on above: Result Comment: The validity of the calculated GFR GFRAA in patients over70 years has not been determined. Clinical correlation isessential. Performed By: #### L 100.0100, L500.4050, L503.6005 ####[facility] [address] [place], [address] EST GFR - AA 101 mL/min Normal >60 [facility] Comment on above: Result Comment: Afri can Citizen [place] GFR Calc Performed By: #### L 100.0100, L500.4050, L503.6005 ####[facility] [address] [place], [address] GAP 4 Low 5-15 [facility] Comment on above: Performed By: #### L 100.0100, L500.4050, L503.6005 ####[facility] [address] [place], [address] GFR/1.73 sq M.predicted among non-blacks MDRD (S/P/Bld) [Vol rate/Area] 84 mL/min/{1.73_m2} Normal >60 [facility] Comment on above: Result Comment: Non- GFR Calc Performed By: #### L 100.0100, L500.4050, L503.6005 ####[facility] [address] [place], [address] Globulin (S) [Mass/Vol] 4.1 g/dL Normal 2.2-4.2 [facility] Comment on above: Performed By: #### L 100.0100, L500.4050, L503.6005 ####[facility] [address] [place], [address] Glucose [Mass/Vol] 101 mg/dL Normal 74-106 [facility] Comment on above: Result Comment: Fast ing Glucose result from 100 to 125 mg/dLsuggests IMPAIRED HOMEOSTASIS per A.D.A. criteria. Performed By: #### L 100.0100, L500.4050, L503.6005 ####[facility] [address] [place], [address] Potassium [Moles/Vol] 3.7 mmol/L Normal 3.5-5.1 [facility] Comment on above: Performed By: #### L 100.0100, L500.4050, L503.6005 ####[facility] [address] [place], [address] Sodium [Moles/Vol] 142 mmol/L Normal 136-145 [facility] Comment on above: Performed By: #### L 100.0100, L500.4050, L503.6005 ####[facility] [address] [place], [address] T PROT 7.0 g/dL Normal 6.4-8.2 [facility] Comment on above: Performed By: #### L 100.0100, L500.4050, L503.6005 ####[facility] [address] [place], [address] Urea nitrogen [Mass/Vol] 14 mg/dL Normal 7-18 [facility] Comment on above: Performed By: #### L 100.0100, L500.4050, L503.6005 ####[facility] [address] [place], [address] Emergency Department Summary on 02-21-2024 Emergency Department Summary Normal [facility] Lactic Acidon 02-21-2024 Lactate [Moles/Vol] 1.4 mmol/L Normal 0.4-1.9 [facility] Comment on above: Order Comment: Y Performed By: #### L 100.0100, L500.4050, L503.6005 ####[facility] [address] [place], [address] M100.678on 02-21-2024 M100.678 Pending SARS-CoV-2 (COVID 19) Negative INFLUENZA A Negative INFLUENZA B Negative RSV PCR Negative Normal [facility] Comment on above: Performed By: #### M 100.678 ####[facility] [address] [place], [address] Urinalysis, Completeon 02-20 BACTERIA RARE Normal None Seen [facility] Comment on above: Order Comment: COLOR OF URINE MAY AFFECT DIPSTICK RESULTS.BARREL BURNER TO SPECIFY Performed By: #### L 400.0001 ####[facility] [address] [place], [address] CAST,HYALINE 0-5 SEEN Normal 0-5 [facility] Comment on above: Order Comment: COLOR OF URINE MAY AFFECT DIPSTICK RESULTS.BARREL BURNER TO SPECIFY Performed By: #### L 400.0001 ####[facility] [address] [place], [address] EPI,RENAL 0-5 SEEN Normal 0-5 [facility] Comment on above: Order Comment: COLOR OF URINE MAY AFFECT DIPSTICK RESULTS.BARREL BURNER TO SPECIFY Performed By: #### L 400.0001 ####[facility] [address] [place], [address] EPI,TRANSITION 0-5 SEEN Normal 0-5 [facility] Comment on above: Order Comment: COLOR OF URINE MAY AFFECT DIPSTICK RESULTS.BARREL BURNER TO SPECIFY Performed By: #### L 400.0001 ####[facility] [address] [place], [address] Mucus Ql (Urine sed) 1+ /hpf Normal [facility] Comment on above: Order Comment: COLOR OF URINE MAY AFFECT DIPSTICK RESULTS.BARREL BURNER TO SPECIFY Performed By: #### L 400.0001 ####[facility] [address] [place], [address] EPI,SQUAMOUS 0-5 SEEN Normal 0-5 [facility] Comment on above: Order Comment: COLOR OF URINE MAY AFFECT DIPSTICK RESULTS.BARREL BURNER TO SPECIFY Performed By: #### L 400.0001 ####[facility] [address] [place], [address] RBC 0-5 SEEN Normal 0-5 [facility] Comment on above: Order Comment: COLOR OF URINE MAY AFFECT DIPSTICK RESULTS.BARREL BURNER TO SPECIFY Performed By: #### L 400.0001 ####[facility] [address] [place], [address] WBC 10-25 SEEN Normal 0-5 [facility] Comment on above: Order Comment: COLOR OF URINE MAY AFFECT DIPSTICK RESULTS.BARREL BURNER TO SPECIFY Performed By: #### L 400.0001 ####[facility] [address] [place], [address] Urine Cultureon 02-18-2024 URC Normal [facility] Comment on above: Performed By: #### M 100.2200 ####[facility] [address] [place], [address] Discharge Instructionon Discharge Instruction Normal [facility] Basic Metabolic Profile (BMP )on 02-16-2024 BUN/CRE 16.2 RATIO Normal 10-20 [facility] Comment on above: Performed By: #### L 500.2500 ####[facility] [address] [place], [address] CA,Total 8.5 mg/dL Normal 8.5-10.1 [facility] Comment on above: Performed By: #### L 500.2500 ####[facility] [address] [place], [address] Chloride [Moles/Vol] 112 mmol/L High 98-107 [facility] Comment on above: Performed By: #### L 500.2500 ####[facility] [address] [place], [address] CO2 [Moles/Vol] 21.0 mmol/L Normal 21.0-32.0 [facility] Comment on above: Performed By: #### L 500.2500 ####[facility] [address] [place], [address] Creatinine [Mass/Vol] 1.30 mg/dL Normal 0.70-1.30 [facility] Comment on above: Result Comment: The validity of the calculated GFR GFRAA in patients over70 years has not been determined. Clinical correlation isessential. Performed By: #### L 500.2500 ####[facility] [address] [place], [address] ECRCL 58.01 ml/min Normal [facility] Comment on above: Performed By: #### L 500.2500 ####[facility] [address] [place], [address] EST GFR - AA 69 mL/min Normal >60 [facility] Comment on above: Result Comment: Afri can Citizen [place] GFR Calc Performed By: #### L 500.2500 ####[facility] [address] [place], [address] GAP 8 Normal 5-15 [facility] Comment on above: Performed By: #### L 500.2500 ####[facility] [address] [place], [address] GFR/1.73 sq M.predicted among non-blacks MDRD (S/P/Bld) [Vol rate/Area] 57 mL/min/{1.73_m2} Low >60 [facility] Comment on above: Result Comment: Non- GFR Calc Performed By: #### L 500.2500 ####[facility] [address] [place], [address] Glucose [Mass/Vol] 147 mg/dL High 74-106 [facility] Comment on above: Result Comment: Fast ing Glucose result greater than or equal to 126 mg/dLsuggests DIABETES MELLITUS per A.D.A. criteria. Performed By: #### L 500.2500 ####[facility] [address] [place], [address] Potassium [Moles/Vol] 3.4 mmol/L Low 3.5-5.1 [facility] Comment on above: Performed By: #### L 500.2500 ####[facility] [address] [place], [address] Sodium [Moles/Vol] 140 mmol/L Normal 136-145 [facility] Comment on above: Performed By: #### L 500.2500 ####[facility] [address] [place], [address] Urea nitrogen [Mass/Vol] 21 mg/dL High 7-18 [facility] Comment on above: Performed By: #### L 500.2500 ####[facility] [address] [place], [address] Culture, Blood (WB)on 2023 CUB Blood cultures x2, f rom two different sites No growth in 5 days. Normal [facility] Comment on above: Performed By: #### M 200.1000, L100.0100, L500.2500, L501.4020, L503.6005 ####[facility] [address] [place], [address] Performed By: #### M 200.1000 ####[facility] [address] [place], [address] Basic Metabolic Profile (BMP )on 02-15-2024 BUN/CRE 18.4 RATIO Normal 10-20 [facility] Comment on above: Performed By: #### L 100.0100, L500.2500 ####[facility] [address] [place], [address] CA,Total 8.5 mg/dL Normal 8.5-10.1 [facility] Comment on above: Performed By: #### L 100.0100, L500.2500 ####[facility] [address] [place], [address] Chloride [Moles/Vol] 112 mmol/L High 98-107 [facility] Comment on above: Performed By: #### L 100.0100, L500.2500 ####[facility] [address] [place], [address] CO2 [Moles/Vol] 26.0 mmol/L Normal 21.0-32.0 [facility] Comment on above: Performed By: #### L 100.0100, L500.2500 ####[facility] [address] [place], [address] Creatinine [Mass/Vol] 1.36 mg/dL High 0.70-1.30 [facility] Comment on above: Result Comment: The validity of the calculated GFR GFRAA in patients over70 years has not been determined. Clinical correlation isessential. Performed By: #### L 100.0100, L500.2500 ####[facility] [address] [place], [address] ECRCL 55.45 ml/min Normal [facility] Comment on above: Performed By: #### L 100.0100, L500.2500 ####[facility] [address] [place], [address] EST GFR - AA 65 mL/min Normal >60 [facility] Comment on above: Result Comment: Afri can [place] GFR Calc Performed By: #### L 100.0100, L500.2500 ####[facility] [address] [place], [address] GAP 3 Low 5-15 [facility] Comment on above: Performed By: #### L 100.0100, L500.2500 ####[facility] [address] [place], [address] GFR/1.73 sq M.predicted among non-blacks MDRD (S/P/Bld) [Vol rate/Area] 54 mL/min/{1.73_m2} Low >60 [facility] Comment on above: Result Comment: Non- GFR Calc Performed By: #### L 100.0100, L500.2500 ####[facility] [address] [place], [address] Glucose [Mass/Vol] 108 mg/dL High 74-106 [facility] Comment on above: Result Comment: Fast ing Glucose result from 100 to 125 mg/dLsuggests IMPAIRED HOMEOSTASIS per A.D.A. criteria. Performed By: #### L 100.0100, L500.2500 ####[facility] [address] [place], [address] Potassium [Moles/Vol] 3.5 mmol/L Normal 3.5-5.1 [facility] Comment on above: Performed By: #### L 100.0100, L500.2500 ####[facility] [address] [place], [address] Sodium [Moles/Vol] 140 mmol/L Normal 136-145 [facility] Comment on above: Performed By: #### L 100.0100, L500.2500 ####[facility] [address] [place], [address] Urea nitrogen [Mass/Vol] 25 mg/dL High 7-18 [facility] Comment on above: Performed By: #### L 100.0100, L500.2500 ####[facility] [address] [place], [address] CBC W/Diff, Automatedon 12-0 3-2024 Absolute Lymph 0.86 X10 3/uL Normal 0.83-4.51 [facility] Comment on above: Performed By: #### L 100.0100, L500.2500 ####[facility] [address] [place], [address] Absolute Neut 8.9 X10 3/uL High 2.0-7.7 [facility] Comment on above: Performed By: #### L 100.0100, L500.2500 ####[facility] [address] [place], [address] Basophils/100 WBC (Bld) 0.4 % Normal 0-1 [facility] Comment on above: Performed By: #### L 100.0100, L500.2500 ####[facility] [address] [place], [address] Eosinophils/100 WBC (Bld) 0.9 % Normal 0-5 [facility] Comment on above: Performed By: #### L 100.0100, L500.2500 ####[facility] [address] [place], [address] Erythrocyte distribution width (RBC) [Ratio] 15.2 % High 11.6-14.6 [facility] Comment on above: Performed By: #### L 100.0100, L500.2500 ####[facility] [address] [place], [address] Hematocrit (Bld) [Volume fraction] 32.8 % Low 40-54 [facility] Comment on above: Performed By: #### L 100.0100, L500.2500 ####[facility] [address] [place], [address] Hemoglobin (Bld) [Mass/Vol] 10.3 g/dL Low 13.0-16.5 [facility] Comment on above: Performed By: #### L 100.0100, L500.2500 ####[facility] [address] [place], [address] IG% 0.800 Normal 0.0-0.9 [facility] Comment on above: Result Comment: IG% - Immature Granulocytes (promyelocytes, myelocytes andmetamyelocytes) > 1% indicates that a LEFT SHIFT is Present. Performed By: #### L 100.0100, L500.2500 ####[facility] [address] [place], [address] Lymphocytes/100 WBC (Bld) 8.1 % Low 19-41 [facility] Comment on above: Performed By: #### L 100.0100, L500.2500 ####[facility] [address] [place], [address] MCH (RBC) [Entitic mass] 28.5 pg Normal 27.0-32.0 [facility] Comment on above: Performed By: #### L 100.0100, L500.2500 ####[facility] [address] [place], [address] MCHC (RBC) [Mass/Vol] 31.4 g/dL Low 32-36 [facility] Comment on above: Performed By: #### L 100.0100, L500.2500 ####[facility] [address] [place], [address] MCV (RBC) [Entitic vol] 90.9 fL Normal 80-94 [facility] Comment on above: Performed By: #### L 100.0100, L500.2500 ####[facility] [address] [place], [address] Monocytes/100 WBC (Bld) 5.9 % Normal 0-10 [facility] Comment on above: Performed By: #### L 100.0100, L500.2500 ####[facility] [address] [place], [address] Neutrophils/100 WBC (Bld) 83.9 % High 47-70 [facility] Comment on above: Performed By: #### L 100.0100, L500.2500 ####[facility] [address] [place], [address] Nucleated RBC (Bld) [#/Vol] 0 10*3/uL Normal 0-5 [facility] Comment on above: Performed By: #### L 100.0100, L500.2500 ####[facility] [address] [place], [address] Platelet mean volume (Bld) [Entitic vol] 10.8 fL Normal 6.2-12.0 [facility] Comment on above: Performed By: #### L 100.0100, L500.2500 ####[facility] [address] [place], [address] Platelets (Bld) [#/Vol] 116 10*3/uL Low 150-450 [facility] Comment on above: Performed By: #### L 100.0100, L500.2500 ####[facility] [address] [place], [address] RBC (Bld) [#/Vol] 3.61 10*6/uL Low 4.6-6.2 [facility] Comment on above: Performed By: #### L 100.0100, L500.2500 ####[facility] [address] [place], [address] RDW SD 50.5 fl High 35.1-43.9 [facility] Comment on above: Performed By: #### L 100.0100, L500.2500 ####[facility] [address] [place], [address] WBC (Bld) [#/Vol] 10.6 10*3/uL Normal 4.4-11.0 [facility] Comment on above: Performed By: #### L 100.0100, L500.2500 ####[facility] [address] [place], [address] Urinalysis, Completeon 02-14 BACTERIA RARE Normal None Seen [facility] Comment on above: Order Comment: CLEAN CATCH Performed By: #### L 400.0001 ####[facility] [address] [place], [address] RBC 10-25 SEEN Normal 0-5 [facility] Comment on above: Order Comment: CLEAN CATCH Performed By: #### L 400.0001 ####[facility] [address] [place], [address] WBC 50-100 SEEN Normal 0-5 [facility] Comment on above: Order Comment: CLEAN CATCH Performed By: #### L 400.0001 ####[facility] [address] [place], [address] EPI,SQUAMOUS 0 SEEN Normal 0-5 [facility] Comment on above: Order Comment: CLEAN CATCH Performed By: #### L 400.0001 ####[facility] [address] [place], [address] Mucus Ql (Urine sed) 0 SEEN Normal [facility] Comment on above: Order Comment: CLEAN CATCH Performed By: #### L 400.0001 ####[facility] [address] [place], [address] Vancomycin, Trough Levelon 1 04-17-2023 VANCO, TROUGH 15.9 ug/mL High 5.0-15.0 [facility] Comment on above: Order Comment: PT IS IN MRI, PRUDENCIO MOCTEZUMAWEBSPHERE [employer] ARCHITECT WILL CALL LAB ONCE THE PATIENTIS BACK IN HIS ROOMComments: Trough to be drawn 30 mins prior to scheduled [id number] Result Comment: VANC OMYCIN STANDARED DRUG THERAPY TROUGH LEVEL: 5.0 - 15.0 mg/LVANCOMYCIN HIGH INTENSITY THERAPY TROUGH LEVEL: 15.0 - 20.0 mg/LHigh Intensity therapy recommended for serious lifethreatening infections include:- Phpzroeoqo-Badzjeliwyfk-Qifevfctg (Ventilator/Healtcare Associated)-SepsisPLEASE CONTACT PHARMACY SERVICES (#9600) FOR INTERPRETATIONOF RESULTS. Performed By: #### L 501.8891 ####[facility] [address] [place], [address] Abdomen/Pelvis W IV Cont ONL Yon 02-14-2024 Abdomen/Pelvis W IV Cont ONLY Normal [facility] Basic Metabolic Profile (BMP )on 02-14-2024 BUN/CRE 20.3 RATIO High 10-20 [facility] Comment on above: Performed By: #### L 500.2500, L100.0100 ####[facility] [address] [place], [address] CA,Total 8.8 mg/dL Normal 8.5-10.1 [facility] Comment on above: Performed By: #### L 500.2500, L100.0100 ####[facility] [address] [place], [address] Chloride [Moles/Vol] 112 mmol/L High 98-107 [facility] Comment on above: Performed By: #### L 500.2500, L100.0100 ####[facility] [address] [place], [address] CO2 [Moles/Vol] 22.0 mmol/L Normal 21.0-32.0 [facility] Comment on above: Performed By: #### L 500.2500, L100.0100 ####[facility] [address] [place], [address] Creatinine [Mass/Vol] 1.33 mg/dL High 0.70-1.30 [facility] Comment on above: Result Comment: The validity of the calculated GFR GFRAA in patients over70 years has not been determined. Clinical correlation isessential. Performed By: #### L 500.2500, L100.0100 ####[facility] [address] [place], [address] ECRCL 56.70 ml/min Normal [facility] Comment on above: Performed By: #### L 500.2500, L100.0100 ####[facility] [address] [place], [address] EST GFR - AA 67 mL/min Normal >60 [facility] Comment on above: Result Comment: Afri can Citizen [place] GFR Calc Performed By: #### L 500.2500, L100.0100 ####[facility] [address] [place], [address] GAP 8 Normal 5-15 [facility] Comment on above: Performed By: #### L 500.2500, L100.0100 ####[facility] [address] [place], [address] GFR/1.73 sq M.predicted among non-blacks MDRD (S/P/Bld) [Vol rate/Area] 55 mL/min/{1.73_m2} Low >60 [facility] Comment on above: Result Comment: Non- GFR Calc Performed By: #### L 500.2500, L100.0100 ####[facility] [address] [place], [address] Glucose [Mass/Vol] 155 mg/dL High 74-106 [facility] Comment on above: Result Comment: Fast ing Glucose result greater than or equal to 126 mg/dLsuggests DIABETES MELLITUS per A.D.A. criteria. Performed By: #### L 500.2500, L100.0100 ####[facility] [address] [place], [address] Potassium [Moles/Vol] 3.5 mmol/L Normal 3.5-5.1 [facility] Comment on above: Performed By: #### L 500.2500, L100.0100 ####[facility] [address] [place], [address] Sodium [Moles/Vol] 142 mmol/L Normal 136-145 [facility] Comment on above: Performed By: #### L 500.2500, L100.0100 ####[facility] [address] [place], [address] Urea nitrogen [Mass/Vol] 27 mg/dL High 7-18 [facility] Comment on above: Performed By: #### L 500.2500, L100.0100 ####[facility] [address] [place], [address] CBC W/Diff, Automatedon Absolute Lymph 0.00 X10 3/uL Low 0.83-4.51 [facility] Comment on above: Performed By: #### L 500.2500, L100.0100 ####[facility] [address] [place], [address] Absolute Neut 17.7 X10 3/uL High 2.0-7.7 [facility] Comment on above: Performed By: #### L 500.2500, L100.0100 ####[facility] [address] [place], [address] Chest 1 View (Portable)on Chest 1 View (Portable) Normal [facility] Consultation - Infectious Dx on 02-14-2024 Consultation - Infectious Dx Normal [facility] Lactic Acidon 02-14-2024 Lactate [Moles/Vol] 2.6 mmol/L Invalid Interpretation Code 0.4-1.9 [facility] Comment on above: Result Comment: Crit ical Result(s) Called at: 04:54:17 02/14/2024 by:Arabella guthrie. Results read back by same. Performed By: #### L 503.6005 ####[facility] [address] [place], [address] Lactate [Moles/Vol] 2.1 mmol/L Invalid Interpretation Code 0.4-1.9 [facility] Comment on above: Order Comment: Y Result Comment: Crit ical Result(s) Called at: 00:06:32 02/14/2024 by:Arabella GUTHRIE. Results read back by same. Performed By: #### L 100.0500, L500.2500, L503.6005 ####[facility] [address] [place], [address] MRI Abd WITH and W/O Contras ton 02-14-2024 MRI Abd WITH and W/O Contrast Normal [facility] 12 Lead EKGon 02-13-2024 12 Lead EKG Normal [facility] Basic Metabolic Profile (BMP )on 02-13-2024 BUN/CRE 21.6 RATIO High 10-20 [facility] Comment on above: Performed By: #### L 100.0500, L500.2500, L503.6005 ####[facility] [address] [facility] [address] CA,Total 8.8 mg/dL Normal 8.5-10.1 [facility] Comment on above: Performed By: #### L 100.0500, L500.2500, L503.6005 ####[facility] [address] [place], [address] Chloride [Moles/Vol] 112 mmol/L High 98-107 [facility] Comment on above: Performed By: #### L 100.0500, L500.2500, L503.6005 ####[facility] [address] [place], [address] CO2 [Moles/Vol] 23.0 mmol/L Normal 21.0-32.0 [facility] Comment on above: Performed By: #### L 100.0500, L500.2500, L503.6005 ####[facility] [address] [place], [address] Creatinine [Mass/Vol] 1.25 mg/dL Normal 0.70-1.30 [facility] Comment on above: Result Comment: The validity of the calculated GFR GFRAA in patients over70 years has not been determined. Clinical correlation isessential. Performed By: #### L 100.0500, L500.2500, L503.6005 ####[facility] [address] [place], [address] ECRCL 60.33 ml/min Normal [facility] Comment on above: Performed By: #### L 100.0500, L500.2500, L503.6005 ####[facility] [address] [place], [address] EST GFR - AA 72 mL/min Normal >60 [facility] Comment on above: Result Comment: Afri can [place] GFR Calc Performed By: #### L 100.0500, L500.2500, L503.6005 ####[facility] [address] [place], [address] GAP 8 Normal 5-15 [facility] Comment on above: Performed By: #### L 100.0500, L500.2500, L503.6005 ####[facility] [address] [place], [address] GFR/1.73 sq M.predicted among non-blacks MDRD (S/P/Bld) [Vol rate/Area] 59 mL/min/{1.73_m2} Low >60 [facility] Comment on above: Result Comment: Non- GFR Calc Performed By: #### L 100.0500, L500.2500, L503.6005 ####[facility] [address] [place], [address] Glucose [Mass/Vol] 156 mg/dL High 74-106 [facility] Comment on above: Result Comment: Fast ing Glucose result greater than or equal to 126 mg/dLsuggests DIABETES MELLITUS per A.D.A. criteria. Performed By: #### L 100.0500, L500.2500, L503.6005 ####[facility] [address] [place], [address] Potassium [Moles/Vol] 3.1 mmol/L Low 3.5-5.1 [facility] Comment on above: Performed By: #### L 100.0500, L500.2500, L503.6005 ####[facility] [address] [place], [address] Sodium [Moles/Vol] 143 mmol/L Normal 136-145 [facility] Comment on above: Performed By: #### L 100.0500, L500.2500, L503.6005 ####[facility] [address] [place], [address] Urea nitrogen [Mass/Vol] 27 mg/dL High 7-18 [facility] Comment on above: Performed By: #### L 100.0500, L500.2500, L503.6005 ####[facility] [address] [place], [address] BUN/CRE 21.1 RATIO High 10-20 [facility] Comment on above: Performed By: #### L 500.2500, L100.0100 ####[facility] [address] [place], [address] CA,Total 8.5 mg/dL Normal 8.5-10.1 [facility] Comment on above: Performed By: #### L 500.2500, L100.0100 ####[facility] [address] [place], [address] Chloride [Moles/Vol] 110 mmol/L High 98-107 [facility] Comment on above: Performed By: #### L 500.2500, L100.0100 ####[facility] [address] [place], [address] CO2 [Moles/Vol] 23.0 mmol/L Normal 21.0-32.0 [facility] Comment on above: Performed By: #### L 500.2500, L100.0100 ####[facility] [address] [place], [address] Creatinine [Mass/Vol] 1.00 mg/dL Normal 0.70-1.30 [facility] Comment on above: Result Comment: The validity of the calculated GFR GFRAA in patients over70 years has not been determined. Clinical correlation isessential. Performed By: #### L 500.2500, L100.0100 ####[facility] [address] [place], [address] ECRCL 75.41 ml/min Normal [facility] Comment on above: Performed By: #### L 500.2500, L100.0100 ####[facility] [address] [place], [address] EST GFR - AA 93 mL/min Normal >60 [facility] Comment on above: Result Comment: Afri can [place] GFR Calc Performed By: #### L 500.2500, L100.0100 ####[facility] [address] [place], [address] GAP 9 Normal 5-15 [facility] Comment on above: Performed By: #### L 500.2500, L100.0100 ####[facility] [address] [place], [address] GFR/1.73 sq M.predicted among non-blacks MDRD (S/P/Bld) [Vol rate/Area] 77 mL/min/{1.73_m2} Normal >60 [facility] Comment on above: Result Comment: Non- GFR Calc Performed By: #### L 500.2500, L100.0100 ####[facility] [address] [place], [address] Glucose [Mass/Vol] 91 mg/dL Normal 74-106 [facility] Comment on above: Performed By: #### L 500.2500, L100.0100 ####[facility] [address] [place], [address] Potassium [Moles/Vol] 2.9 mmol/L Low 3.5-5.1 [facility] Comment on above: Performed By: #### L 500.2500, L100.0100 ####[facility] [address] [place], [address] Sodium [Moles/Vol] 142 mmol/L Normal 136-145 [facility] Comment on above: Performed By: #### L 500.2500, L100.0100 ####[facility] [address] [place], [address] Urea nitrogen [Mass/Vol] 21 mg/dL High 7-18 [facility] Comment on above: Performed By: #### L 500.2500, L100.0100 ####[facility] [address] [place], [address] Bedside Glucoseon 02-13-2024 FINGERSTICK GLU 129 mg/dL High 74-106 [facility] Comment on above: Result Comment: NETO XIE OF PATIENT CARE PER NURSING PROTOCOL Performed By: #### L 501.080 ####[facility] [address] [place], [address] [facility] 024 DIANA TEST Positive Normal [facility] Comment on above: Performed By: #### L 9000.0800 ####[facility] [address] [place], [address] Base excess Calc (Bld) [Moles/Vol] -4 mmol/L Low -2 to +2 [facility] Comment on above: Performed By: #### L 9000.0800 ####[facility] [address] [place], [address] Blood Gas Type ART Normal [facility] Comment on above: Performed By: #### L 9000.0800 ####[facility] [address] [place], [address] CO2 [Moles/Vol] 20 mmol/L Normal [facility] Comment on above: Performed By: #### L 9000.0800 ####[facility] [address] [place], [address] FI02 2.0 Normal [facility] Comment on above: Performed By: #### L 9000.0800 ####[facility] [address] [place], [address] HCO3 (Bld) [Moles/Vol] 19.6 mmol/L Low 22-26 [facility] Comment on above: Performed By: #### L 9000.0800 ####[facility] [address] [place], [address] Mode Not entered Normal [facility] Comment on above: Performed By: #### L 9000.0800 ####[facility] [address] [place], [address] O2 Delivery Dev Cannula Normal [facility] Comment on above: Performed By: #### L 0.0800 ####[facility] [address] [place], [address] pCO2 25.9 mmHg Low 35-45 [facility] Comment on above: Performed By: #### L 9000.0800 ####[facility] [address] [place], [address] pH (Bld) 7.49 [pH] High 7.35-7.45 [facility] Comment on above: Performed By: #### L 9000.0800 ####[facility] [address] [place], [address] PO2 85 mmHG Normal 75-100 [facility] Comment on above: Performed By: #### L 9000.0800 ####[facility] [address] [place], [address] SITE R Radial Normal [facility] Comment on above: Performed By: #### L 9000.0800 ####[facility] [address] [place], [address] SO2 97 Normal 95-99 [facility] Comment on above: Performed By: #### L 9000.0800 ####[facility] [address] [place], [address] Brain/Head without Contrasto n 02-13-2024 Brain/Head without Contrast Normal [facility] CBC W/Diff, Automatedon 12-0 Absolute Lymph 1.09 X10 3/uL Normal 0.83-4.51 [facility] Comment on above: Performed By: #### L 500.2500, L100.0100 ####[facility] [address] [place], [address] Absolute Neut 3.9 X10 3/uL Normal 2.0-7.7 [facility] Comment on above: Performed By: #### L 500.2500, L100.0100 ####[facility] [address] [place], [address] Basophils/100 WBC (Bld) 0.5 % Normal 0-1 [facility] Comment on above: Performed By: #### L 500.2500, L100.0100 ####[facility] [address] [place], [address] Eosinophils/100 WBC (Bld) 2.6 % Normal 0-5 [facility] Comment on above: Performed By: #### L 500.2500, L100.0100 ####[facility] [address] [place], [address] Erythrocyte distribution width (RBC) [Ratio] 14.4 % Normal 11.6-14.6 [facility] Comment on above: Performed By: #### L 500.2500, L100.0100 ####[facility] [address] [place], [address] Hematocrit (Bld) [Volume fraction] 35.4 % Low 40-54 [facility] Comment on above: Performed By: #### L 500.2500, L100.0100 ####[facility] [address] [place], [address] Hemoglobin (Bld) [Mass/Vol] 11.6 g/dL Low 13.0-16.5 [facility] Comment on above: Performed By: #### L 500.2500, L100.0100 ####[facility] [address] [place], [address] IG% 0.300 Normal 0.0-0.9 [facility] Comment on above: Result Comment: IG% - Immature Granulocytes (promyelocytes, myelocytes andmetamyelocytes) > 1% indicates that a LEFT SHIFT is Present. Performed By: #### L 500.2500, L100.0100 ####[facility] [address] [place], [address] Lymphocytes/100 WBC (Bld) 18.7 % Low 19-41 [facility] Comment on above: Performed By: #### L 500.2500, L100.0100 ####[facility] [address] [place], [address] MCH (RBC) [Entitic mass] 29.1 pg Normal 27.0-32.0 [facility] Comment on above: Performed By: #### L 500.2500, L100.0100 ####[facility] [address] [place], [address] MCHC (RBC) [Mass/Vol] 32.8 g/dL Normal 32-36 [facility] Comment on above: Performed By: #### L 500.2500, L100.0100 ####[facility] [address] [place], [address] MCV (RBC) [Entitic vol] 88.7 fL Normal 80-94 [facility] Comment on above: Performed By: #### L 500.2500, L100.0100 ####[facility] [address] [place], [address] Monocytes/100 WBC (Bld) 11.0 % High 0-10 [facility] Comment on above: Performed By: #### L 500.2500, L100.0100 ####[facility] [address] [place], [address] Neutrophils/100 WBC (Bld) 66.9 % Normal 47-70 [facility] Comment on above: Performed By: #### L 500.2500, L100.0100 ####[facility] [address] [place], [address] Nucleated RBC (Bld) [#/Vol] 0 10*3/uL Normal 0-5 [facility] Comment on above: Performed By: #### L 500.2500, L100.0100 ####[facility] [address] [place], [address] Platelet mean volume (Bld) [Entitic vol] 11.0 fL Normal 6.2-12.0 [facility] Comment on above: Performed By: #### L 500.2500, L100.0100 ####[facility] [address] [place], [address] Platelets (Bld) [#/Vol] 149 10*3/uL Low 150-450 [facility] Comment on above: Performed By: #### L 500.2500, L100.0100 ####[facility] [address] [place], [address] RBC (Bld) [#/Vol] 3.99 10*6/uL Low 4.6-6.2 [facility] Comment on above: Performed By: #### L 500.2500, L100.0100 ####[facility] [address] [place], [address] RDW SD 46.3 fl High 35.1-43.9 [facility] Comment on above: Performed By: #### L 500.2500, L100.0100 ####[facility] [address] [place], [address] WBC (Bld) [#/Vol] 5.8 10*3/uL Normal 4.4-11.0 [facility] Comment on above: Performed By: #### L 500.2500, L100.0100 ####[facility] [address] [place], [address] CBC-Complete Blood Cnt No Di ffon 02-13-2024 Erythrocyte distribution width (RBC) [Ratio] 14.3 % Normal 11.6-14.6 [facility] Comment on above: Performed By: #### L 100.0500, L500.2500, L503.6005 ####[facility] [address] [place], [address] Hematocrit (Bld) [Volume fraction] 36.0 % Low 40-54 [facility] Comment on above: Performed By: #### L 100.0500, L500.2500, L503.6005 ####[facility] [address] [place], [address] Hemoglobin (Bld) [Mass/Vol] 12.0 g/dL Low 13.0-16.5 [facility] Comment on above: Performed By: #### L 100.0500, L500.2500, L503.6005 ####[facility] [address] [place], [address] MCH (RBC) [Entitic mass] 29.3 pg Normal 27.0-32.0 [facility] Comment on above: Performed By: #### L 100.0500, L500.2500, L503.6005 ####[facility] [address] [place], [address] MCHC (RBC) [Mass/Vol] 33.3 g/dL Normal 32-36 [facility] Comment on above: Performed By: #### L 100.0500, L500.2500, L503.6005 ####[facility] [address] [place], [address] MCV (RBC) [Entitic vol] 87.8 fL Normal 80-94 [facility] Comment on above: Performed By: #### L 100.0500, L500.2500, L503.6005 ####[facility] [address] [place], [address] Platelet mean volume (Bld) [Entitic vol] 10.1 fL Normal 6.2-12.0 [facility] Comment on above: Performed By: #### L 100.0500, L500.2500, L503.6005 ####[facility] [address] [place], [address] Platelets (Bld) [#/Vol] 134 10*3/uL Low 150-450 [facility] Comment on above: Performed By: #### L 100.0500, L500.2500, L503.6005 ####[facility] [address] [place], [address] RBC (Bld) [#/Vol] 4.10 10*6/uL Low 4.6-6.2 [facility] Comment on above: Performed By: #### L 100.0500, L500.2500, L503.6005 ####[facility] [address] [place], [address] RDW SD 46.0 fl High 35.1-43.9 [facility] Comment on above: Performed By: #### L 100.0500, L500.2500, L503.6005 ####[facility] [address] [place], [address] WBC (Bld) [#/Vol] 10.4 10*3/uL Normal 4.4-11.0 [facility] Comment on above: Performed By: #### L 100.0500, L500.2500, L503.6005 ####[facility] [address] [place], [address] Magnesiumon 02-13-2024 Magnesium [Mass/Vol] 2.2 mg/dL Normal 1.6-2.6 [facility] Comment on above: Order Comment: SG1 1 JSG1 5 H Performed By: #### L 987.5200 ####[facility] [address] [place], [address] 12 Lead EKGon 02-12-2024 12 Lead EKG Normal [facility] BNP,B-Type NATRIURETIC PEPTI Qamar 02-12-2024 Natriuretic peptide B (Bld) [Mass/Vol] 195.0 pg/mL High 0-100 [facility] Comment on above: Order Comment: OK TO ADD PER RN KAYLEE Performed By: #### L 503.2577 ####[facility] [address] [place], [address] Basic Metabolic Profile (BMP )on 02-12-2024 BUN/CRE 18.6 RATIO Normal 10-20 [facility] Comment on above: Order Comment: 'TROP ' Serial specimen #1, #2 or #3: 1 Performed By: #### M 200.1000, L100.0100, L500.2500, L501.4020, L503.6005 ####[facility] [address] [place], [address] CA,Total 8.6 mg/dL Normal 8.5-10.1 [facility] Comment on above: Order Comment: 'TROP ' Serial specimen #1, #2 or #3: 1 Performed By: #### M 200.1000, L100.0100, L500.2500, L501.4020, L503.6005 ####[facility] [address] [place], [address] Chloride [Moles/Vol] 106 mmol/L Normal 98-107 [facility] Comment on above: Order Comment: 'TROP ' Serial specimen #1, #2 or #3: 1 Performed By: #### M 200.1000, L100.0100, L500.2500, L501.4020, L503.6005 ####[facility] [address] [place], [address] CO2 [Moles/Vol] 29.0 mmol/L Normal 21.0-32.0 [facility] Comment on above: Order Comment: 'TROP ' Serial specimen #1, #2 or #3: 1 Performed By: #### M 200.1000, L100.0100, L500.2500, L501.4020, L503.6005 ####[facility] [address] [place], [address] Creatinine [Mass/Vol] 1.45 mg/dL High 0.70-1.30 [facility] Comment on above: Order Comment: 'TROP ' Serial specimen #1, #2 or #3: 1 Result Comment: The validity of the calculated GFR GFRAA in patients over70 years has not been determined. Clinical correlation isessential. Performed By: #### M 200.1000, L100.0100, L500.2500, L501.4020, L503.6005 ####[facility] [address] [place], [address] ECRCL 53.60 ml/min Normal [facility] Comment on above: Order Comment: 'TROP ' Serial specimen #1, #2 or #3: 1 Performed By: #### M 200.1000, L100.0100, L500.2500, L501.4020, L503.6005 ####[facility] [address] [place], [address] EST GFR - AA 61 mL/min Normal >60 [facility] Comment on above: Order Comment: 'TROP ' Serial specimen #1, #2 or #3: 1 Result Comment: Afri can [place] GFR Calc Performed By: #### M 200.1000, L100.0100, L500.2500, L501.4020, L503.6005 ####[facility] [address] [place], [address] GAP 6 Normal 5-15 [facility] Comment on above: Order Comment: 'TROP ' Serial specimen #1, #2 or #3: 1 Performed By: #### M 200.1000, L100.0100, L500.2500, L501.4020, L503.6005 ####[facility] [address] [place], [address] GFR/1.73 sq M.predicted among non-blacks MDRD (S/P/Bld) [Vol rate/Area] 50 mL/min/{1.73_m2} Low >60 [facility] Comment on above: Order Comment: 'TROP ' Serial specimen #1, #2 or #3: 1 Result Comment: Non- GFR Calc Performed By: #### M 200.1000, L100.0100, L500.2500, L501.4020, L503.6005 ####[facility] [address] [place], [address] Glucose [Mass/Vol] 130 mg/dL High 74-106 [facility] Comment on above: Order Comment: 'TROP ' Serial specimen #1, #2 or #3: 1 Result Comment: Fast ing Glucose result greater than or equal to 126 mg/dLsuggests DIABETES MELLITUS per A.D.A. criteria. Performed By: #### M 200.1000, L100.0100, L500.2500, L501.4020, L503.6005 ####[facility] [address] [place], [address] Potassium [Moles/Vol] 2.8 mmol/L Low 3.5-5.1 [facility] Comment on above: Order Comment: 'TROP ' Serial specimen #1, #2 or #3: 1 Performed By: #### M 200.1000, L100.0100, L500.2500, L501.4020, L503.6005 ####[facility] [address] [place], [address] Sodium [Moles/Vol] 140 mmol/L Normal 136-145 [facility] Comment on above: Order Comment: 'TROP ' Serial specimen #1, #2 or #3: 1 Performed By: #### M 200.1000, L100.0100, L500.2500, L501.4020, L503.6005 ####[facility] [address] [place], [address] Urea nitrogen [Mass/Vol] 27 mg/dL High 7-18 [facility] Comment on above: Order Comment: 'TROP ' Serial specimen #1, #2 or #3: 1 Performed By: #### M 200.1000, L100.0100, L500.2500, L501.4020, L503.6005 ####[facility] [address] [place], [address] Brain/Head without Contrasto n 02-11-2023 Brain/Head without Contrast Normal [facility] CBC W/Diff, Automatedon 11-3 0-2023 Absolute Lymph 0.66 X10 3/uL Low 0.83-4.51 [facility] Comment on above: Performed By: #### M 200.1000, L100.0100, L500.2500, L501.4020, L503.6005 ####[facility] [address] [place], [address] Absolute Neut 3.8 X10 3/uL Normal 2.0-7.7 [facility] Comment on above: Performed By: #### M 200.1000, L100.0100, L500.2500, L501.4020, L503.6005 ####[facility] [address] [place], [address] Basophils/100 WBC (Bld) 0.6 % Normal 0-1 [facility] Comment on above: Performed By: #### M 200.1000, L100.0100, L500.2500, L501.4020, L503.6005 ####[facility] [address] [place], [address] Eosinophils/100 WBC (Bld) 2.8 % Normal 0-5 [facility] Comment on above: Performed By: #### M 200.1000, L100.0100, L500.2500, L501.4020, L503.6005 ####[facility] [address] [place], [address] Erythrocyte distribution width (RBC) [Ratio] 14.3 % Normal 11.6-14.6 [facility] Comment on above: Performed By: #### M 200.1000, L100.0100, L500.2500, L501.4020, L503.6005 ####[facility] [address] [place], [address] Hematocrit (Bld) [Volume fraction] 35.1 % Low 40-54 [facility] Comment on above: Performed By: #### M 200.1000, L100.0100, L500.2500, L501.4020, L503.6005 ####[facility] [address] [place], [address] Hemoglobin (Bld) [Mass/Vol] 11.7 g/dL Low 13.0-16.5 [facility] Comment on above: Performed By: #### M 200.1000, L100.0100, L500.2500, L501.4020, L503.6005 ####[facility] [address] [place], [address] IG% 0.400 Normal 0.0-0.9 [facility] Comment on above: Result Comment: IG% - Immature Granulocytes (promyelocytes, myelocytes andmetamyelocytes) > 1% indicates that a LEFT SHIFT is Present. Performed By: #### M 200.1000, L100.0100, L500.2500, L501.4020, L503.6005 ####[facility] [address] [place], [address] Lymphocytes/100 WBC (Bld) 12.4 % Low 19-41 [facility] Comment on above: Performed By: #### M 200.1000, L100.0100, L500.2500, L501.4020, L503.6005 ####[facility] [address] [place], [address] MCH (RBC) [Entitic mass] 29.8 pg Normal 27.0-32.0 [facility] Comment on above: Performed By: #### M 200.1000, L100.0100, L500.2500, L501.4020, L503.6005 ####[facility] [address] [place], [address] MCHC (RBC) [Mass/Vol] 33.3 g/dL Normal 32-36 [facility] Comment on above: Performed By: #### M 200.1000, L100.0100, L500.2500, L501.4020, L503.6005 ####[facility] [address] [place], [address] MCV (RBC) [Entitic vol] 89.3 fL Normal 80-94 [facility] Comment on above: Performed By: #### M 200.1000, L100.0100, L500.2500, L501.4020, L503.6005 ####[facility] [address] [place], [address] Monocytes/100 WBC (Bld) 11.7 % High 0-10 [facility] Comment on above: Performed By: #### M 200.1000, L100.0100, L500.2500, L501.4020, L503.6005 ####[facility] [address] [place], [address] Neutrophils/100 WBC (Bld) 72.1 % High 47-70 [facility] Comment on above: Performed By: #### M 200.1000, L100.0100, L500.2500, L501.4020, L503.6005 ####[facility] [address] [place], [address] Nucleated RBC (Bld) [#/Vol] 0 10*3/uL Normal 0-5 [facility] Comment on above: Performed By: #### M 200.1000, L100.0100, L500.2500, L501.4020, L503.6005 ####[facility] [address] [place], [address] Platelet mean volume (Bld) [Entitic vol] 10.3 fL Normal 6.2-12.0 [facility] Comment on above: Performed By: #### M 200.1000, L100.0100, L500.2500, L501.4020, L503.6005 ####[facility] [address] [place], [address] Platelets (Bld) [#/Vol] 133 10*3/uL Low 150-450 [facility] Comment on above: Performed By: #### M 200.1000, L100.0100, L500.2500, L501.4020, L503.6005 ####[facility] [address] [place], [address] RBC (Bld) [#/Vol] 3.93 10*6/uL Low 4.6-6.2 [facility] Comment on above: Performed By: #### M 200.1000, L100.0100, L500.2500, L501.4020, L503.6005 ####[facility] [address] [place], [address] RDW SD 47.2 fl High 35.1-43.9 [facility] Comment on above: Performed By: #### M 200.1000, L100.0100, L500.2500, L501.4020, L503.6005 ####[facility] [address] [place], [address] WBC (Bld) [#/Vol] 5.3 10*3/uL Normal 4.4-11.0 [facility] Comment on above: Performed By: #### M 200.1000, L100.0100, L500.2500, L501.4020, L503.6005 ####[facility] [address] [place], [address] Chest 1 View (Portable)on Chest 1 View (Portable) Normal [facility] Chest without Contraston Chest without Contrast Normal [facility] Echo Complete W/ Contraston 02-12-2024 Echo Complete W/ Contrast Normal [facility] Emergency Department Summary on 02-12-2024 Emergency Department Summary Normal [facility] H AND P Exam - Hospitaliston 02-12-2024 H&P Exam - Hospitalist Normal [facility] L501.4020on 02-12-2024 TROPONIN-I HS 17 pg/mL Normal 3.0-78.0 [facility] Comment on above: Order Comment: 'TROP ' Serial specimen #1, #2 or #3: 1 Result Comment: Plehomero se Note: New Test Units and Gender Specific Reference Ranges. For more information see Policy Stat Procedure [place] High Sensitivity Troponin (TNIH) and attachments. Performed By: #### M 200.1000, L100.0100, L500.2500, L501.4020, L503.6005 ####[facility] [address] [place], [address] Lactic Acidon 02-12-2024 Lactate [Moles/Vol] 1.4 mmol/L Normal 0.4-1.9 [facility] Comment on above: Order Comment: Y Performed By: #### M 200.1000, L100.0100, L500.2500, L501.4020, L503.6005 ####[facility] [address] [place], [address] M100.678on 02-12-2024 M100.678 SARS-CoV-2 (COVID 19 ) Negative INFLUENZA A Negative INFLUENZA B Negative RSV PCR Negative Normal [facility] Comment on above: Performed By: #### L 400.0001, M100.678 ####[facility] [address] [place], [address] Urinalysis, Completeon 02-11 WBC 0-5 SEEN Normal 0-5 [facility] Comment on above: Order Comment: CLEAN CATCH Performed By: #### L 400.0001, M100.678 ####[facility] [address] [place], [address] BACTERIA 0 SEEN Normal None Seen [facility] Comment on above: Order Comment: CLEAN CATCH Performed By: #### L 400.0001, M100.678 ####[facility] [address] [place], [address] EPI,SQUAMOUS 0 SEEN Normal 0-5 [facility] Comment on above: Order Comment: CLEAN CATCH Performed By: #### L 400.0001, M100.678 ####[facility] [address] [place], [address] Mucus Ql (Urine sed) 0 SEEN Normal [facility] Comment on above: Order Comment: CLEAN CATCH Performed By: #### L 400.0001, M100.678 ####[facility] [address] [place], [address] RBC 0 SEEN Normal 0-5 [facility] Comment on above: Order Comment: CLEAN CATCH Performed By: #### L 400.0001, M100.678 ####[facility] [address] [place], [address] No Panel Informationon 02-08 Culture Urine >100,000 cfu/ml Mult iple bacterial morphotypes present. Probable Contamination. Suggest recollection if clinically indicated. [facility] Work Phone: Initial Evaluation (3) - PTo n 02-01-2024 Initial Evaluation (3) - PT Normal [facility] SP/HP.SPREEVon 12-29-2023 SP/HP.SPREEV Normal [facility] Cardiology Visit Reporton Cardiology Visit Report Normal [facility] No Panel Informationon 11-24 Culture Wound Aerobe Few Normal skin saroj ra present. Sensitivity testing not indicated. [facility] Work Phone: GS No organisms seen. [facility] Work Phone: TOBRAMYCIN:SUSC:PT:ISOLATE:O RDQN:MICon 11-25-2023 Tobramycin DEV [Susc] >100,000 cfu/ml Gr am Negative Rods Unable to further ID [facility] Work Phone: Tobramycin DEV [Susc]on 11-13 Gram Negative Rods Gram Negative Rods [facility] Work Phone: CEFEPIME:SUSC:PT:ISOLATE:ORD QN:MICon 09-28-2023 Cefepime DEV [Susc] 50,000 - 100,000 cfu /ml Pseudomonas aeruginosa [facility] Work Phone: Cefepime DEV [Susc]on 2023 Pseudomonas aeruginosa Pseudomonas aeruginosa [facility] Work Phone: XR CLAVICLE LEFTon 4 XR [...] 09/08/2023 12:00:24 PM Ordering Provider: MALLORY Sibley [facility] ([place]) AMIKACIN:SUSC:PT:ISOLATE:ORD QN:MICon 01-11-2024 Amikacin DEV [Susc] >100,000 cfu/ml Citrobacter koseri >100,000 cfu/ml Group B Beta Hemolytic Strep (Strep agalactiae) Sensitivity testing is not recommended for one of the following reasons: 1. Established susceptibility patterns are available or 2. Interpretative criteria are not available. [facility] Work Phone: Amikacin DEV [Susc]on 2023 Citrobacter koseri Citrobacter koseri [facility] Work Phone: Basophil percentageOrdered B y: Alessandra Melchor on 01-29-2023 Chloride [Moles/Vol] 110 mmol/L 98-107 [facility] Glucose [Mass/Vol] 114 mg/dL 74-106 [facility] Comment on above: Fasting Glucose resu lt from 100 to 125 mg/dL suggests IMPAIRED HOMEOSTASIS per A.D.A. criteria. Potassium [Moles/Vol] 3.7 mmol/L 3.5-5.1 [facility] Sodium [Moles/Vol] 141 mmol/L 136-145 [facility] Laboratory - Chemistry and C hemistry - challengeOrdered By: Alessandra Melchor on 01-29-2023 CO2 [Moles/Vol] 26.0 mmol/L 21.0-32.0 [facility] Urea nitrogen/Creatinine [Mass ratio] 13.3 mg/mg 10-20 [facility] No Panel InformationOrdered By: Alessandra Melchor on 01-29-2023 Estimated GFR (MDRD) Amer 76 mL/min >60 [facility] Comment on above: GFR Calc Estimated GFR (MDRD) Non-Af Amer 63 mL/min >60 [facility] Comment on above: Non- GFR Calc Prostate Specific Antigen Total 3.43 ng/mL 0.0-4.0 [facility] Comment on above: This test was perfor med using the TPSA assay method [facility] ([place], [place] chemistry system. Values obtained with differentassay methods cannot be used interchangably.When changing PSA assays in the course of monitoring apatient, additional sequential testing should be carriedout to confirm baseline values. Urine Microalbumin/Creatinine Ratio 69.2 mg/g CRE <30 [facility] Serum or plasma calcium nicole urement (mass/volume)Ordered By: Alessandra Melchor on 01-29-2023 Calcium [Mass/Vol] 8.7 mg/dL 8.5-10.1 [facility] Serum or plasma creatinine m easurement (mass/volume)Ordered By: Alessandra Melchor on 01-29-2023 Creatinine [Mass/Vol] 1.20 mg/dL 0.70-1.30 [facility] Comment on above: The validity of the calculated GFR & GFRAA in patients over 70 years has not been determined. Clinical correlation is essential. Serum or plasma urea nitroge n measurement (mass/volume)Ordered By: Alessandra Melchor on 01-29-2023 Urea nitrogen [Mass/Vol] 16 mg/dL 7-18 [facility] Thin prep Papanicolaou smear with manual screeningOrdered By: Alessandra Melchor on 01-29-2023 Thin prep Papanicolaou smear with manual screening 5 5-15 [facility] Thin prep Papanicolaou smear with manual screening 79.6 mg/L NO RANGE EST. [facility] Urine creatinine measurement (mass/volume)Ordered By: Alessandra Melchor on 01-29-2023 Creatinine (U) [Mass/Vol] 115.00 mg/dL NO RANGE EST. [facility] Absolute lymphocyte countOrd ered By: Alessandra Melchor on 11-04-2022 Lymphocytes Auto (Unsp spec) [#/Vol] 1.35 10*3/uL 0.83-4.51 [facility] Basophil percentageOrdered B y: Alessandra Melchor on 11-04-2022 Basophils/100 WBC (Bld) 0.4 % 0-1 [facility] Chloride [Moles/Vol] 110 mmol/L 98-107 [facility] Eosinophils/100 WBC (Bld) 1.3 % 0-5 [facility] Glucose [Mass/Vol] 87 mg/dL 74-106 [facility] Neutrophils (Bld) [#/Vol] 5.2 10*3/uL 2.0-7.7 [facility] Neutrophils/100 WBC (Bld) 71.8 % 47-70 [facility] Potassium [Moles/Vol] 3.8 mmol/L 3.5-5.1 [facility] Sodium [Moles/Vol] 143 mmol/L 136-145 [facility] WBC (Bld) [#/Vol] 7.2 10*3/uL 4.4-11.0 [facility] Blood erythrocytes count (nu mber/volume)Ordered By: Alessandra Melchor on 11-04-2022 RBC (Bld) [#/Vol] 3.90 10*6/uL 4.6-6.2 [facility] Blood hemoglobin measurement (mass/volume)Ordered By: Alessandra Melchor on 11-04-2022 Hemoglobin (Bld) [Mass/Vol] 11.6 g/dL 13.0-16.5 [facility] Blood lymphocytes/100 leukoc ytesOrdered By: Alessandra Melchor on 11-04-2022 Lymphocytes/100 WBC (Bld) 18.8 % 19-41 [facility] Blood monocytes/100 leukocyt esOrdered By: Alessandra Melchor on 11-04-2022 Monocytes/100 WBC (Bld) 7.1 % 0-10 [facility] Blood platelet mean volumeOr dered By: Alessandra Melchor on 11-04-2022 Platelet mean volume (Bld) [Entitic vol] 9.8 fL 6.2-12.0 [facility] Determination of erythrocyte mean corpuscular volume (MCV)Ordered By: Alessandra Melchor on 11-04-2022 MCV (RBC) [Entitic vol] 93.8 fL 80-94 [facility] Hematocrit Auto (Bld) [Volum e fraction]Ordered By: Alessandra Melchor on 11-04-2022 Hematocrit (Bld) [Volume fraction] 36.6 % 40-54 [facility] Laboratory - Chemistry and C hemistry - challengeOrdered By: Alessandra Melchor on 11-04-2022 CO2 [Moles/Vol] 29.0 mmol/L 21.0-32.0 [facility] Natriuretic peptide B (Bld) [Mass/Vol] 316.3 pg/mL 0-100 [facility] Urea nitrogen/Creatinine [Mass ratio] 19.8 mg/mg 10-20 [facility] Laboratory - Hematology and Cell countsOrdered By: Alessandra Melchor on 11-04-2022 Erythrocyte distribution width (RBC) [Entitic vol] 54.3 fL 35.1-43.9 [facility] Erythrocyte distribution width (RBC) [Ratio] 15.9 % 11.6-14.6 [facility] Immature granulocytes/100 WBC (Bld) 0.600 % 0.0-0.9 [facility] Comment on above: IG% - Immature Granu locytes (promyelocytes, myelocytes and metamyelocytes) > 1% indicates that a LEFT SHIFT is Present. MCH (RBC) [Entitic mass] 29.7 pg 27.0-32.0 [facility] Nucleated RBC/100 WBC (Bld) [Ratio] 0 % 0-5 [facility] MCHC Auto (RBC) [Mass/Vol]Or dered By: Alessandra Melchor on 11-04-2022 MCHC (RBC) [Mass/Vol] 31.7 g/dL 32-36 [facility] No Panel InformationOrdered By: Alessandra Melchor on 11-04-2022 Estimated GFR (MDRD) Amer 83 mL/min >60 [facility] Comment on above: GFR Calc Estimated GFR (MDRD) Non-Af Amer 68 mL/min >60 [facility] Comment on above: Non- GFR Calc Platelets bldOrdered By: Samuel Melchor on 11-04-2022 Platelets (Bld) [#/Vol] 176 10*3/uL 150-450 [facility] Serum or plasma calcium nicole urement (mass/volume)Ordered By: Alessandra Melchor on 11-04-2022 Calcium [Mass/Vol] 9.0 mg/dL 8.5-10.1 [facility] Serum or plasma creatinine m easurement (mass/volume)Ordered By: Alessandra Melchor on 11-04-2022 Creatinine [Mass/Vol] 1.11 mg/dL 0.70-1.30 [facility] Comment on above: The validity of the calculated GFR & GFRAA in patients over 70 years has not been determined. Clinical correlation is essential. Serum or plasma urea nitroge n measurement (mass/volume)Ordered By: Alessandra Melchor on 11-04-2022 Urea nitrogen [Mass/Vol] 22 mg/dL 7-18 [facility] Thin prep Papanicolaou smear with manual screeningOrdered By: Alessandra Melchor on 11-04-2022 Thin prep Papanicolaou smear with manual screening 4 5-15 [facility] TOBRAMYCIN:SUSC:PT:ISOLATE:O RDQN:MICon 08-31-2022 Tobramycin DEV [Susc] 10,000 - 50,000 cf u/ml Pseudomonas aeruginosa [facility] Work Phone: Tobramycin DEV [Susc]on 08-13 Pseudomonas aeruginosa Pseudomonas aeruginosa [facility] Work Phone: Absolute lymphocyte countOrd ered By: Dr. Cantu on 08-28-2022 Lymphocytes Auto (Unsp spec) [#/Vol] 0.74 10*3/uL 0.83-4.51 [facility] Basophil percentageOrdered B y: Dr. Cantu on 08-28-2022 Basophils/100 WBC (Bld) 0.2 % 0-1 [facility] Chloride [Moles/Vol] 106 mmol/L 98-107 [facility] Eosinophils/100 WBC (Bld) 0.8 % 0-5 [facility] Glucose [Mass/Vol] 122 mg/dL 74-106 [facility] Comment on above: Fasting Glucose resu lt from 100 to 125 mg/dL suggests IMPAIRED HOMEOSTASIS per A.D.A. criteria. Neutrophils (Bld) [#/Vol] 12.2 10*3/uL 2.0-7.7 [facility] Neutrophils/100 WBC (Bld) 85.6 % 47-70 [facility] Potassium [Moles/Vol] 3.3 mmol/L 3.5-5.1 [facility] Sodium [Moles/Vol] 139 mmol/L 136-145 [facility] WBC (Bld) [#/Vol] 14.2 10*3/uL 4.4-11.0 [facility] Blood erythrocytes count (nu mber/volume)Ordered By: Dr. Cantu on 08-28-2022 RBC (Bld) [#/Vol] 4.29 10*6/uL 4.6-6.2 [facility] Blood hemoglobin measurement (mass/volume)Ordered By: Dr. Cantu on 08-28-2022 Hemoglobin (Bld) [Mass/Vol] 12.8 g/dL 13.0-16.5 [facility] Blood lymphocytes/100 leukoc ytesOrdered By: Dr. Cantu on 08-28-2022 Lymphocytes/100 WBC (Bld) 5.2 % 19-41 [facility] Blood monocytes/100 leukocyt esOrdered By: Dr. Cantu on 08-28-2022 Monocytes/100 WBC (Bld) 7.7 % 0-10 [facility] Blood platelet mean volumeOr dered By: Dr. Cantu on 08-28-2022 Platelet mean volume (Bld) [Entitic vol] 10.6 fL 6.2-12.0 [facility] Determination of erythrocyte mean corpuscular volume (MCV)Ordered By: Dr. Cantu on 08-28-2022 MCV (RBC) [Entitic vol] 90.9 fL 80-94 [facility] Hematocrit Auto (Bld) [Volum e fraction]Ordered By: Dr. Cantu on 08-28-2022 Hematocrit (Bld) [Volume fraction] 39.0 % 40-54 [facility] Laboratory - Chemistry and C hemistry - challengeOrdered By: Dr. Cantu on 08-28-2022 CO2 [Moles/Vol] 24.0 mmol/L 21.0-32.0 [facility] Urea nitrogen/Creatinine [Mass ratio] 32.0 mg/mg 10-20 [facility] Laboratory - Hematology and Cell countsOrdered By: Dr. Cantu on 08-28-2022 Erythrocyte distribution width (RBC) [Entitic vol] 49.2 fL 35.1-43.9 [facility] Erythrocyte distribution width (RBC) [Ratio] 14.8 % 11.6-14.6 [facility] Immature granulocytes/100 WBC (Bld) 0.500 % 0.0-0.9 [facility] Comment on above: IG% - Immature Granu locytes (promyelocytes, myelocytes and metamyelocytes) > 1% indicates that a LEFT SHIFT is Present. MCH (RBC) [Entitic mass] 29.8 pg 27.0-32.0 [facility] Nucleated RBC/100 WBC (Bld) [Ratio] 0 % 0-5 [facility] MCHC Auto (RBC) [Mass/Vol]Or dered By: Dr. Cantu on 08-28-2022 MCHC (RBC) [Mass/Vol] 32.8 g/dL 32-36 [facility] No Panel InformationOrdered By: Dr. Cantu on 08-28-2022 Estimated Creatinine Clearance Calc 74.81 ml/min [facility] Estimated GFR (MDRD) Amer 113 mL/min >60 [facility] Comment on above: GFR Calc Estimated GFR (MDRD) Non-Af Amer 94 mL/min >60 [facility] Comment on above: Non- GFR Calc Platelets bldOrdered By: Dr. Cantu on 08-28-2022 Platelets (Bld) [#/Vol] 191 10*3/uL 150-450 [facility] Serum or plasma calcium nicole urement (mass/volume)Ordered By: Dr. Cantu on 08-28-2022 Calcium [Mass/Vol] 9.1 mg/dL 8.5-10.1 [facility] Serum or plasma creatinine m easurement (mass/volume)Ordered By: Dr. Cantu on 08-28-2022 Creatinine [Mass/Vol] 0.84 mg/dL 0.70-1.30 [facility] Comment on above: The validity of the calculated GFR & GFRAA in patients over 70 years has not been determined. Clinical correlation is essential. Serum or plasma urea nitroge n measurement (mass/volume)Ordered By: Dr. Cantu on 08-28-2022 Urea nitrogen [Mass/Vol] 27 mg/dL 7-18 [facility] Thin prep Papanicolaou smear with manual screeningOrdered By: Dr. Cantu on 08-28-2022 Thin prep Papanicolaou smear with manual screening 9 5-15 [facility] Culture, urineOrdered By: Dr Antonio Zavala on 08-27-2022 Bacteria identified Cx Nom (U) Citrobacter koseri [facility] Bacteria identified Cx Nom (U) Streptococcus agalactiae (B) [facility] Laboratory - Chemistry and C hemistry - challengeOrdered By: Dr. Cantu on 08-27-2022 Lipase [Catalytic activity/Vol] 72 U/L 13-75 [facility] Comment on above: Please note:LIPASE r evised reference range effective 22. New Lipase methodology. Expected to produce lower values than the previous assay method. NEW Reference Range: 13 - 75 U/L Basophil percentageOrdered B y: Dr. Cantu on 08-26-2022 Bilirubin [Mass/Vol] 1.70 mg/dL 0.20-1.00 [facility] Comment on above: For patients on eltr ombopag therapy, use of Dimension [place] TBIL is not recommended. Protein [Mass/Vol] 6.4 g/dL 6.4-8.2 [facility] Direct bilirubinOrdered By: Dr. Cantu on 08-26-2022 Bilirubin.direct [Mass/Vol] 0.90 mg/dL 0.00-0.30 [facility] Laboratory - Chemistry and C hemistry - challengeOrdered By: Dr. Cantu on 08-26-2022 ALP [Catalytic activity/Vol] 89 U/L 45-117 [facility] ALT [Catalytic activity/Vol] 128 U/L 16-61 [facility] Globulin (S) [Mass/Vol] 3.5 g/dL 2.2-4.2 [facility] Serum or plasma albumin nicole urement (mass/volume)Ordered By: Dr. Cantu on 08-26-2022 Albumin [Mass/Vol] 2.9 g/dL 3.2-5.0 [facility] Thin prep Papanicolaou smear with manual screeningOrdered By: Dr. Cantu on 08-26-2022 Thin prep Papanicolaou smear with manual screening 41 U/L 15-37 [facility] Basophil percentageOrdered B y: Dr. Zavala on 08-25-2022 Lactate [Moles/Vol] 1.0 mmol/L 0.4-2.0 [facility] Basophil percentage >100 SEEN /hpf 0-5 [facility] Bilirubin Test strip Ql (U)O rdered By: Dr. Zavala on 08-25-2022 Bilirubin Ql (U) 1 mg/dL Negative [facility] Comment on above: COLOR OF URINE MAY A FFECT DIPSTICK RESULTS. Culture, urineOrdered By: Terry Zavala on 08-25-2022 Bacteria identified Cx Nom (U) Citrobacter koseri [facility] Bacteria identified Cx Nom (U) Streptococcus agalactiae (B) [facility] Ketones Test strip Ql (U)Ord ered By: Dr. Zavala on 08-25-2022 Ketones Ql (U) 5 mg/dl Negative [facility] Laboratory - Microbiology an d Antimicrobial susceptibilityOrdered By: Juaquin Zavala on 08-25-2022 Bacteria identified Cx Nom (Bld) No growth in 5 days. [facility] Mucus LM Ql (Urine sed)Order ed By: Dr. Zavala on 08-25-2022 Mucus Ql (Urine sed) 0 SEEN /hpf [facility] Nitrite Test strip Ql (U)Ord ered By: Dr. Zavala on 08-25-2022 Nitrite Ql (U) Positive Negative [facility] No Panel InformationOrdered By: Dr. Zavala on 08-25-2022 Troponin I High Sensitivity 11 pg/mL 3.0-78.0 [facility] Comment on above: Please Note: New Padmini t Units and Gender Specific Reference Ranges. For more information see Policy Stat Procedure [place] High Sensitivity Troponin (TNIH) and attachments. Protein Test strip Ql (U)Ord ered By: Dr. Zavala on 08-25-2022 Protein Ql (U) 30 mg/dl Negative [facility] Serum or plasma albumin/glob ulin mass ratioOrdered By: Dr. Zavala on 08-25-2022 Albumin/Globulin [Mass ratio] 1.0 {ratio} 0.9-2.4 [facility] Squamous epithelial cells de tection in urine sediment by light microscopyOrdered By: Dr. Zavala on 08-25-2022 Epithelial cells.squamous LM Ql (Urine sed) 0-5 SEEN /hpf 0-5 [facility] Urine blood detectionOrdered By: Dr. Zavala on 08-25-2022 RBC Ql (U) 150 /ul Negative [facility] RBC Ql (U) 0-5 SEEN /hpf 0-5 [facility] Urine clarityOrdered By: Dr. Zavala on 08-25-2022 Clarity (U) Cloudy [facility] Urine color determinationOrd ered By: Dr. Zavala on 08-25-2022 Color (U) Yellow [facility] Urine glucose detectionOrder ed By: Dr. Zavala on 08-25-2022 Glucose Ql (U) Normal mg/dl Normal [facility] Urine leukocyte esterase det ection by dipstickOrdered By: Dr. Zavala on 08-25-2022 Leukocyte esterase Test strip Ql (U) 500 /ul Negative [facility] Urine pHOrdered By: Dr. An estevez on 08-25-2022 pH (U) 6.0 [pH] 5.0 - 8.0 [facility] Urine sediment bacteria coun t by microscopy (number/high power field)Ordered By: Dr. Zavala on 08-25-2022 Bacteria LM.HPF (Urine sed) [#/Area] 1 /[HPF] None Seen [facility] Urine specific gravity measu rementOrdered By: Dr. Zavala on 08-25-2022 Specific gravity (U) [Rel density] 1.020 1.002-1.03 0 [facility] Urobilinogen Auto test strip Ql (U)Ordered By: Dr. 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 Probable Contamination. Suggest recollection if clinically indicated. [facility] Work Phone: Absolute lymphocyte counton 09-16-2021 Lymphocytes Auto (Unsp spec) [#/Vol] 1.03 10*3/uL 0.83-4.51 [facility] Work Phone: Basophil percentageon 2021 Basophils/100 WBC (Bld) 0.7 % 0-1 [facility] Work Phone: Chloride [Moles/Vol] 111 mmol/L 98-107 [facility] Work Phone: Eosinophils/100 WBC (Bld) 2.2 % 0-5 [facility] Work Phone: Glucose [Mass/Vol] 92 mg/dL 74-106 [facility] Work Phone: Neutrophils (Bld) [#/Vol] 4.1 10*3/uL 2.0-7.7 [facility] Work Phone: Neutrophils/100 WBC (Bld) 70.6 % 47-70 [facility] Work Phone: Potassium [Moles/Vol] 3.7 mmol/L 3.5-5.1 [facility] Work [facility]: Sodium [Moles/Vol] 140 mmol/L 136-145 [facility] Work Phone: WBC (Bld) [#/Vol] 5.9 10*3/uL 4.4-11.0 [facility] Work Phone: Blood erythrocytes count (nu mber/volume)on 09-16-2021 RBC (Bld) [#/Vol] 3.66 10*6/uL 4.6-6.2 [facility] Work Phone: Blood hemoglobin measurement (mass/volume)on 09-16-2021 Hemoglobin (Bld) [Mass/Vol] 11.2 g/dL 13.0-16.5 [facility] Work Phone: Blood lymphocytes/100 leukoc yteson 09-16-2021 Lymphocytes/100 WBC (Bld) 17.5 % 19-41 [facility] Work Phone: Blood monocytes/100 leukocyt eson 09-16-2021 Monocytes/100 WBC (Bld) 8.0 % 0-10 [facility] Work Phone: Blood platelet mean volumeon 09-16-2021 Platelet mean volume (Bld) [Entitic vol] 9.6 fL 6.2-12.0 [facility] Work Phone: Determination of erythrocyte mean corpuscular volume (MCV)on 09-16-2021 MCV (RBC) [Entitic vol] 93.2 fL 80-94 [facility] Work Phone: Hematocrit Auto (Bld) [Volum e fraction]on 09-16-2021 Hematocrit (Bld) [Volume fraction] 34.1 % 40-54 [facility] Work Phone: Laboratory - Chemistry and C hemistry - challengeon 09-16-2021 CO2 [Moles/Vol] 24.0 mmol/L 21.0-32.0 [facility] Work Phone: Urea nitrogen/Creatinine [Mass ratio] 26.7 mg/mg 10-20 [facility] Work Phone: Laboratory - Hematology and Cell countson 09-16-2021 Erythrocyte distribution width (RBC) [Entitic vol] 50.5 fL 35.1-43.9 [facility] Work Phone: Erythrocyte distribution width (RBC) [Ratio] 14.9 % 11.6-14.6 [facility] Work Phone: Immature granulocytes/100 WBC (Bld) 1.000 % 0.0-0.9 [facility] Work Phone: Comment on above: IG% - Immature Granu locytes (promyelocytes, myelocytes and metamyelocytes) > 1% indicates that a LEFT SHIFT is Present. MCH (RBC) [Entitic mass] 30.6 pg 27.0-32.0 [facility] Work Phone: Nucleated RBC/100 WBC (Bld) [Ratio] 0 % 0-5 [facility] Work Phone: MCHC Auto (RBC) [Mass/Vol]on 09-16-2021 MCHC (RBC) [Mass/Vol] 32.8 g/dL 32-36 [facility] Work Phone: No Panel Informationon 09-16 Estimated Creatinine Clearance Calc 61.75 ml/min [facility] Work Phone: Estimated GFR (MDRD) Amer 131 mL/min >60 [facility] Work Phone: Comment on above: GFR Calc Estimated GFR (MDRD) Non-Af Amer 108 mL/min >60 [facility] Work Phone: Comment on above: Non- GFR Calc Platelets bldon 09-16-2021 Platelets (Bld) [#/Vol] 178 10*3/uL 150-450 [facility] Work Phone: Serum or plasma calcium nicole urement (mass/volume)on 09-16-2021 Calcium [Mass/Vol] 9.0 mg/dL 8.5-10.1 [facility] Work Phone: Serum or plasma creatinine m easurement (mass/volume)on 09-16-2021 Creatinine [Mass/Vol] 0.75 mg/dL 0.70-1.30 [facility] Work Phone: Comment on above: The validity of the calculated GFR & GFRAA in patients over 70 years has not been determined. Clinical correlation is essential. Serum or plasma urea nitroge n measurement (mass/volume)on 09-16-2021 Urea nitrogen [Mass/Vol] 20 mg/dL 7-18 [facility] Work Phone: Thin prep Papanicolaou smear with manual screeningon 09-16-2021 Thin prep Papanicolaou smear with manual screening 5 5-15 [facility] Work Phone: Absolute lymphocyte counton 09-08-2021 Lymphocytes Auto (Unsp spec) [#/Vol] 0.72 10*3/uL 0.83-4.51 [facility] Work Phone: Basophil percentageon 2021 Basophils/100 WBC (Bld) 0.5 % 0-1 [facility] Work Phone: Chloride [Moles/Vol] 108 mmol/L 98-107 [facility] Work Phone: Eosinophils/100 WBC (Bld) 2.3 % 0-5 [facility] Work Phone: Glucose [Mass/Vol] 99 mg/dL 74-106 [facility] Work Phone: Neutrophils (Bld) [#/Vol] 6.4 10*3/uL 2.0-7.7 [facility] Work Phone: Neutrophils/100 WBC (Bld) 80.6 % 47-70 [facility] Work Phone: Potassium [Moles/Vol] 3.7 mmol/L 3.5-5.1 [facility] Work Phone: Sodium [Moles/Vol] 139 mmol/L 136-145 [facility] Work Phone: WBC (Bld) [#/Vol] 8.0 10*3/uL 4.4-11.0 [facility] Work Phone: Blood erythrocytes count (nu mber/volume)on 09-08-2021 RBC (Bld) [#/Vol] 3.72 10*6/uL 4.6-6.2 [facility] Work Phone: Blood hemoglobin measurement (mass/volume)on 09-08-2021 Hemoglobin (Bld) [Mass/Vol] 11.5 g/dL 13.0-16.5 [facility] Work Phone: Blood lymphocytes/100 leukoc yteson 09-08-2021 Lymphocytes/100 WBC (Bld) 9.0 % 19-41 [facility] Work Phone: Blood monocytes/100 leukocyt eson 09-08-2021 Monocytes/100 WBC (Bld) 7.3 % 0-10 [facility] Work Phone: Blood platelet mean volumeon 09-08-2021 Platelet mean volume (Bld) [Entitic vol] 9.8 fL 6.2-12.0 [facility] Work Phone: Determination of erythrocyte mean corpuscular volume (MCV)on 09-08-2021 MCV (RBC) [Entitic vol] 90.9 fL 80-94 [facility] Work Phone: Hematocrit Auto (Bld) [Volum e fraction]on 09-08-2021 Hematocrit (Bld) [Volume fraction] 33.8 % 40-54 [facility] Work Phone: Laboratory - Chemistry and C hemistry - challengeon 09-08-2021 CO2 [Moles/Vol] 23.0 mmol/L 21.0-32.0 [facility] Work Phone: Urea nitrogen/Creatinine [Mass ratio] 19.8 mg/mg 10-20 [facility] Work Phone: [phone] Laboratory - Hematology and Cell countson 09-08-2021 Erythrocyte distribution width (RBC) [Entitic vol] 51.3 fL 35.1-43.9 [facility] Work Phone: Erythrocyte distribution width (RBC) [Ratio] 15.2 % 11.6-14.6 [facility] Work Phone: Immature granulocytes/100 WBC (Bld) 0.300 % 0.0-0.9 [facility] Work Phone: Comment on above: IG% - Immature Granu locytes (promyelocytes, myelocytes and metamyelocytes) > 1% indicates that a LEFT SHIFT is Present. MCH (RBC) [Entitic mass] 30.9 pg 27.0-32.0 [facility] Work Phone: Nucleated RBC/100 WBC (Bld) [Ratio] 0 % 0-5 [facility] Work Phone: MCHC Auto (RBC) [Mass/Vol]on 09-08-2021 MCHC (RBC) [Mass/Vol] 34.0 g/dL 32-36 [facility] Work Phone: No Panel Informationon 09-08 Estimated Creatinine Clearance Calc 76.23 ml/min [facility] Work Phone: Estimated GFR (MDRD) Amer 119 mL/min >60 [facility] Work Phone: Comment on above: GFR Calc Estimated GFR (MDRD) Non-Af Amer 99 mL/min >60 [facility] Work Phone: Comment on above: Non- GFR Calc Platelets bldon 09-08-2021 Platelets (Bld) [#/Vol] 139 10*3/uL 150-450 [facility] Work Phone: Serum or plasma calcium nicole urement (mass/volume)on 09-08-2021 Calcium [Mass/Vol] 8.9 mg/dL 8.5-10.1 [facility] Work Phone: Serum or plasma creatinine m easurement (mass/volume)on 09-08-2021 Creatinine [Mass/Vol] 0.81 mg/dL 0.70-1.30 [facility] Work Phone: Comment on above: The validity of the calculated GFR & GFRAA in patients over 70 years has not been determined. Clinical correlation is essential. Serum or plasma urea nitroge n measurement (mass/volume)on 06-27-2022 Urea nitrogen [Mass/Vol] 16 mg/dL 7-18 [facility] Work Phone: Thin prep Papanicolaou smear with manual screeningon 09-08-2021 Thin prep Papanicolaou smear with manual screening 8 5-15 [facility] Work Phone: Absolute lymphocyte counton 09-07-2021 Lymphocytes Auto (Unsp spec) [#/Vol] 0.99 10*3/uL 0.83-4.51 [facility] Work Phone: Basophil percentageon 2021 Basophil percentage 25-50 SEEN /hpf 0-5 [facility] Work Phone: Basophils/100 WBC (Bld) 0.2 % 0-1 [facility] Work Phone: Chloride [Moles/Vol] 109 mmol/L 98-107 [facility] Work Phone: Eosinophils/100 WBC (Bld) 0.9 % 0-5 [facility] Work Phone: [phone] Glucose [Mass/Vol] 155 mg/dL 74-106 [facility] Work Phone: Comment on above: Fasting Glucose resu lt greater than or equal to 126 mg/dL suggests DIABETES MELLITUS per A.D.A. criteria. Lactate [Moles/Vol] 1.2 mmol/L 0.4-2.0 [facility] Work Phone: [phone] Neutrophils (Bld) [#/Vol] 7.6 10*3/uL 2.0-7.7 [facility] Work Phone: Neutrophils/100 WBC (Bld) 79.5 % 47-70 [facility] Work Phone: Potassium [Moles/Vol] 3.8 mmol/L 3.5-5.1 [facility] Work Phone: Sodium [Moles/Vol] 139 mmol/L 136-145 [facility] Work Phone: WBC (Bld) [#/Vol] 9.6 10*3/uL 4.4-11.0 [facility] Work Phone: Bilirubin Test strip Ql (U)o n 09-07-2021 Bilirubin Ql (U) Negative Negative [facility] Work Phone: Blood erythrocytes count (nu mber/volume)on 09-07-2021 RBC (Bld) [#/Vol] 3.70 10*6/uL 4.6-6.2 [facility] Work Phone: Blood hemoglobin measurement (mass/volume)on 09-07-2021 Hemoglobin (Bld) [Mass/Vol] 11.3 g/dL 13.0-16.5 [facility] Work Phone: Blood lymphocytes/100 leukoc yteson 09-07-2021 Lymphocytes/100 WBC (Bld) 10.4 % 19-41 [facility] Work Phone: Blood monocytes/100 leukocyt eson 09-07-2021 Monocytes/100 WBC (Bld) 8.5 % 0-10 [facility] Work Phone: Blood platelet mean volumeon 09-07-2021 Platelet mean volume (Bld) [Entitic vol] 10.0 fL 6.2-12.0 [facility] Work Phone: Determination of erythrocyte mean corpuscular volume (MCV)on 09-07-2021 MCV (RBC) [Entitic vol] 93.5 fL 80-94 [facility] Work Phone: Hematocrit Auto (Bld) [Volum e fraction]on 09-07-2021 Hematocrit (Bld) [Volume fraction] 34.6 % 40-54 [facility] Work Phone: Ketones Test strip Ql (U)on 09-07-2021 Ketones Ql (U) Negative Negative [facility] Work Phone: Laboratory - Chemistry and C hemistry - challengeon 09-07-2021 CO2 [Moles/Vol] 25.0 mmol/L 21.0-32.0 [facility] Work Phone: Urea nitrogen/Creatinine [Mass ratio] 19.9 mg/mg 10-20 [facility] Work Phone: Laboratory - Hematology and Cell countson 09-07-2021 Erythrocyte distribution width (RBC) [Entitic vol] 53.1 fL 35.1-43.9 [facility] Work Phone: Erythrocyte distribution width (RBC) [Ratio] 15.4 % 11.6-14.6 [facility] Work Phone: Immature granulocytes/100 WBC (Bld) 0.500 % 0.0-0.9 [facility] Work Phone: Comment on above: IG% - Immature Granu locytes (promyelocytes, myelocytes and metamyelocytes) > 1% indicates that a LEFT SHIFT is Present. MCH (RBC) [Entitic mass] 30.5 pg 27.0-32.0 [facility] Work Phone: Nucleated RBC/100 WBC (Bld) [Ratio] 0 % 0-5 [facility] Work Phone: MCHC Auto (RBC) [Mass/Vol]on 09-07-2021 MCHC (RBC) [Mass/Vol] 32.7 g/dL 32-36 [facility] Work Phone: Mucus LM Ql (Urine sed)on Mucus Ql (Urine sed) 0 SEEN /hpf [facility] Work Phone: Nitrite Test strip Ql (U)on 09-07-2021 Nitrite Ql (U) Negative Negative [facility] Work Phone: No Panel Informationon 09-07 Estimated Creatinine Clearance Calc 68.61 ml/min [facility] Work Phone: Estimated GFR (MDRD) Amer 105 mL/min >60 [facility] Work Phone: Comment on above: GFR Calc Estimated GFR (MDRD) Non-Af Amer 87 mL/min >60 [facility] Work Phone: Comment on above: Non- GFR Calc Platelets bldon 09-07-2021 Platelets (Bld) [#/Vol] 136 10*3/uL 150-450 [facility] Work Phone: Protein Test strip Ql (U)on 09-07-2021 Protein Ql (U) 15 mg/dl Negative [facility] Work Phone: Serum or plasma calcium nicole urement (mass/volume)on 09-07-2021 Calcium [Mass/Vol] 8.9 mg/dL 8.5-10.[address] [facility] Work Phone: Serum or plasma creatinine m easurement (mass/volume)on 09-07-2021 Creatinine [Mass/Vol] 0.90 mg/dL 0.70-1.30 [facility] Work Phone: Comment on above: The validity of the calculated GFR & GFRAA in patients over 70 years has not been determined. Clinical correlation is essential. Serum or plasma urea nitroge n measurement (mass/volume)on 09-07-2021 Urea nitrogen [Mass/Vol] 18 mg/dL 7-18 [facility] Work Phone: Squamous epithelial cells de tection in urine sediment by light microscopyon 09-07-2021 Epithelial cells.squamous LM Ql (Urine sed) 0 SEEN /hpf 0-5 [facility] Work Phone: Thin prep Papanicolaou smear with manual screeningon 09-07-2021 Thin prep Papanicolaou smear with manual screening 5 5-15 [facility] Work Phone: Urine blood detectionon 08-14 RBC Ql (U) 50 /ul Negative [facility] Work Phone: RBC Ql (U) 5-10 SEEN /hpf 0-5 [facility] Work Phone: Urine clarityon 09-07-2021 Clarity (U) Sl. Cloudy Clear [facility] Work Phone: Urine color determinationon 09-07-2021 Color (U) Yellow Yellow [facility] Work Phone: Urine glucose detectionon Glucose Ql (U) Normal mg/dl Normal [facility] Work Phone: Urine leukocyte esterase det ection by dipstickon 09-07-2021 Leukocyte esterase Test strip Ql (U) 500 /ul Negative [facility] Work Phone: Urine pHon 09-07-2021 pH (U) 7.0 [pH] 5.0 - 8.0 [facility] Work Phone: Urine sediment bacteria coun t by microscopy (number/high power field)on 09-07-2021 Bacteria LM.HPF (Urine sed) [#/Area] 0 /[HPF] None Seen [facility] Work Phone: Urine specific gravity measu rementon 09-07-2021 Specific gravity (U) [Rel density] 1.010 1.002-1.03 0 [facility] Work Phone: Urobilinogen Auto test strip Ql (U)on 09-07-2021 Urobilinogen Ql (U) 1 mg/dl Normal [facility] Work Phone: Basophil percentageon 2021 Basophil percentage 50-100 SEEN /hpf 0-5 [facility] Work Phone: Bilirubin Test strip Ql (U)o n 09-06-2021 Bilirubin Ql (U) Negative Negative [facility] Work Phone: Ketones Test strip Ql (U)on 09-06-2021 Ketones Ql (U) 5 mg/dl Negative [facility] Work Phone: Mucus LM Ql (Urine sed)on Mucus Ql (Urine sed) 0 SEEN /hpf [facility] Work Phone: Nitrite Test strip Ql (U)on 09-06-2021 Nitrite Ql (U) Negative Negative [facility] Work Phone: Protein Test strip Ql (U)on 09-06-2021 Protein Ql (U) 30 mg/dl Negative [facility] Work Phone: Squamous epithelial cells de tection in urine sediment by light microscopyon 09-06-2021 Epithelial cells.squamous LM Ql (Urine sed) 0-5 SEEN /hpf 0-5 [facility] Work Phone: Urine blood detectionon 08-14 RBC Ql (U) 250 /ul Negative [facility] Work Phone: RBC Ql (U) 10-25 SEEN /hpf 0-5 [facility] Work Phone: Urine clarityon 09-06-2021 Clarity (U) Cloudy Clear [facility] Work Phone: Urine color determinationon 09-06-2021 Color (U) Yellow Yellow [facility] Work Phone: Urine glucose detectionon Glucose Ql (U) Normal mg/dl Normal [facility] Work Phone: Urine leukocyte esterase det ection by dipstickon 09-06-2021 Leukocyte esterase Test strip Ql (U) 500 /ul Negative [facility] Work Phone: Urine pHon 09-06-2021 pH (U) 6.0 [pH] 5.0 - 8.0 [facility] Work Phone: Urine sediment bacteria coun t by microscopy (number/high power field)on 09-06-2021 Bacteria LM.HPF (Urine sed) [#/Area] 4 /[HPF] None Seen [facility] Work Phone: Urine specific gravity measu rementon 09-06-2021 Specific gravity (U) [Rel density] 1.015 1.002-1.03 0 [facility] Work Phone: Urobilinogen Auto test strip Ql (U)on 09-06-2021 Urobilinogen Ql (U) Normal mg/dl Normal [facility] Work Phone: Basophil percentageon 2021 Chloride [Moles/Vol] 110 mmol/L 98-[address] [facility] Work Phone: Glucose [Mass/Vol] 99 mg/dL 74-106 [facility] [facility] Work Phone: Potassium [Moles/Vol] 4.3 mmol/L 3.5-5.1 [facility] Work Phone: Sodium [Moles/Vol] 139 mmol/L 136-145 [facility] Work Phone: Laboratory - Chemistry and C hemistry - challengeon 09-05-2021 CO2 [Moles/Vol] 23.0 mmol/L 21.0-32.0 [facility] Work Phone: Natriuretic peptide B (Bld) [Mass/Vol] 144.5 pg/mL 0-100 [facility] Work Phone: Urea nitrogen/Creatinine [Mass ratio] 27.2 mg/mg 10-20 [facility] Work Phone: No Panel Informationon 09-05 Estimated Creatinine Clearance Calc 70.17 ml/min [facility] Work Phone: Estimated GFR (MDRD) Amer 108 mL/min >60 [facility] Work Phone: Comment on above: GFR Calc Estimated GFR (MDRD) Non-Af Amer 89 mL/min >60 [facility] Work Phone: Comment on above: Non- GFR Calc Serum or plasma calcium nicole urement (mass/volume)on 09-05-2021 Calcium [Mass/Vol] 9.2 mg/dL 8.5-10.1 [facility] Work Phone: Serum or plasma creatinine m easurement (mass/volume)on 09-05-2021 Creatinine [Mass/Vol] 0.88 mg/dL 0.70-1.30 [facility] Work Phone: Comment on above: The validity of the calculated GFR & GFRAA in patients over 70 years has not been determined. Clinical correlation is essential. Serum or plasma urea nitroge n measurement (mass/volume)on 09-05-2021 Urea nitrogen [Mass/Vol] 24 mg/dL 7-18 [facility] Work Phone: Thin prep Papanicolaou smear with manual screeningon 09-05-2021 Thin prep Papanicolaou smear with manual screening 6 5-15 [facility] Work Phone: Absolute lymphocyte counton 09-01-2021 Lymphocytes Auto (Unsp spec) [#/Vol] 0.76 10*3/uL 0.83-4.51 [facility] Work Phone: Basophil percentageon 2021 Basophils/100 WBC (Bld) 0.3 % 0-1 [facility] Work Phone: Eosinophils/100 WBC (Bld) 1.3 % 0-5 [facility] Work Phone: Neutrophils (Bld) [#/Vol] 4.5 10*3/uL 2.0-7.7 [facility] Work Phone: Neutrophils/100 WBC (Bld) 75.1 % 47-70 [facility] Work Phone: WBC (Bld) [#/Vol] 6.1 10*3/uL 4.4-11.0 [facility] Work Phone: [phone] Blood erythrocytes count (nu mber/volume)on 09-01-2021 RBC (Bld) [#/Vol] 3.70 10*6/uL 4.6-6.2 [facility] Work Phone: Blood hemoglobin measurement (mass/volume)on 09-01-2021 Hemoglobin (Bld) [Mass/Vol] 11.4 g/dL 13.0-16.5 [facility] Work Phone: Blood lymphocytes/100 leukoc yteson 09-01-2021 Lymphocytes/100 WBC (Bld) 12.6 % 19-41 [facility] Work Phone: Blood monocytes/100 leukocyt eson 09-01-2021 Monocytes/100 WBC (Bld) 10.4 % 0-10 [facility] Work Phone: Blood platelet mean volumeon 09-01-2021 Platelet mean volume (Bld) [Entitic vol] 10.3 fL 6.2-12.0 [facility] Work Phone: Determination of erythrocyte mean corpuscular volume (MCV)on 09-01-2021 MCV (RBC) [Entitic vol] 91.4 fL 80-94 [facility] Work Phone: Hematocrit Auto (Bld) [Volum e fraction]on 09-01-2021 Hematocrit (Bld) [Volume fraction] 33.8 % 40-54 [facility] Work Phone: Laboratory - Hematology and Cell countson 09-01-2021 Erythrocyte distribution width (RBC) [Entitic vol] 50.6 fL 35.1-43.9 [facility] Work Phone: Erythrocyte distribution width (RBC) [Ratio] 15.1 % 11.6-14.6 [facility] Work Phone: Immature granulocytes/100 WBC (Bld) 0.300 % 0.0-0.9 [facility] Work Phone: Comment on above: IG% - Immature Granu locytes (promyelocytes, myelocytes and metamyelocytes) > 1% indicates that a LEFT SHIFT is Present. MCH (RBC) [Entitic mass] 30.8 pg 27.0-32.0 [facility] Work Phone: Nucleated RBC/100 WBC (Bld) [Ratio] 0 % 0-5 [facility] Work Phone: MCHC Auto (RBC) [Mass/Vol]on 09-01-2021 MCHC (RBC) [Mass/Vol] 33.7 g/dL 32-36 [facility] Work Phone: Platelets bldon 09-01-2021 Platelets (Bld) [#/Vol] 133 10*3/uL 150-450 [facility] Work Phone: Basophil percentageon 2021 Chloride [Moles/Vol] 109 mmol/L 98-[address] [facility] Work Phone: Glucose [Mass/Vol] 97 mg/dL 74-106 [place] [facility] Work Phone: Potassium [Moles/Vol] 3.8 mmol/L 3.5-5.1 [facility] Work Phone: Sodium [Moles/Vol] 138 mmol/L 136-[address] [facility] Work Phone: WBC (Bld) [#/Vol] 6.5 10*3/uL 4.4-11.[address] [facility] Work Phone: Blood erythrocytes count (nu mber/volume)on 08-16-2021 RBC (Bld) [#/Vol] 3.85 10*6/uL 4.6-6.2 [facility] Work Phone: Blood hemoglobin measurement (mass/volume)on 08-16-2021 Hemoglobin (Bld) [Mass/Vol] 11.8 g/dL 13.0-16.5 [facility] Work Phone: Blood platelet mean volumeon 08-16-2021 Platelet mean volume (Bld) [Entitic vol] 10.3 fL 6.2-12.0 [facility] Work Phone: Determination of erythrocyte mean corpuscular volume (MCV)on 08-16-2021 MCV (RBC) [Entitic vol] 92.2 fL 80-94 [facility] Work Phone: Hematocrit Auto (Bld) [Volum e fraction]on 08-16-2021 Hematocrit (Bld) [Volume fraction] 35.5 % 40-54 [facility] Work Phone: Laboratory - Chemistry and C hemistry - challengeon 08-16-2021 CO2 [Moles/Vol] 23.0 mmol/L 21.0-32.0 [facility] Work Phone: Magnesium [Mass/Vol] 2.3 mg/dL 1.6-2.6 [facility] Work Phone: Urea nitrogen/Creatinine [Mass ratio] 42.2 mg/mg 10-20 [facility] Work Phone: Laboratory - Hematology and Cell countson 08-16-2021 Erythrocyte distribution width (RBC) [Entitic vol] 50.5 fL 35.1-43.9 [facility] Work Phone: Erythrocyte distribution width (RBC) [Ratio] 14.9 % 11.6-14.6 [facility] Work Phone: MCH (RBC) [Entitic mass] 30.6 pg 27.0-32.0 [facility] Work Phone: MCHC Auto (RBC) [Mass/Vol]on 08-16-2021 MCHC (RBC) [Mass/Vol] 33.2 g/dL 32-36 [facility] Work Phone: No Panel Informationon 08-16 Estimated Creatinine Clearance Calc 79.78 ml/min [facility] Work Phone: Estimated GFR (MDRD) Amer 120 mL/min >60 [facility] Work Phone: Comment on above: GFR Calc Estimated GFR (MDRD) Non-Af Amer 99 mL/min >60 [facility] Work Phone: Comment on above: Non- GFR Calc Platelets bldon 08-16-2021 Platelets (Bld) [#/Vol] 150 10*3/uL 150-450 [facility] Work Phone: Serum or plasma calcium nicole urement (mass/volume)on 08-16-2021 Calcium [Mass/Vol] 8.8 mg/dL 8.5-10.1 [facility] Work Phone: Serum or plasma creatinine m easurement (mass/volume)on 08-16-2021 Creatinine [Mass/Vol] 0.80 mg/dL 0.70-1.30 [facility] Work Phone: Comment on above: The validity of the calculated GFR & GFRAA in patients over 70 years has not been determined. Clinical correlation is essential. Serum or plasma urea nitroge n measurement (mass/volume)on 08-16-2021 Urea nitrogen [Mass/Vol] 34 mg/dL 7-18 [facility] Work Phone: Thin prep Papanicolaou smear with manual screeningon 08-16-2021 Thin prep Papanicolaou smear with manual screening 6 5-15 [facility] Work Phone: Lower GI hemoglobin IA Ql (S tl)on 08-09-2021 Stool Occult Blood (DEV) Positive [facility] Work Phone: Absolute lymphocyte counton 07-26-2021 Lymphocytes Auto (Unsp spec) [#/Vol] 1.06 10*3/uL 0.83-4.51 [facility] Work Phone: [phone] Basophil percentageon 2021 Basophil percentage 2.8 mg/dL 2.5-4.9 [facility] Work Phone: Basophils/100 WBC (Bld) 0.6 % 0-1 [facility] Work Phone: Bilirubin [Mass/Vol] 1.30 mg/dL 0.20-1.00 [facility] Work Phone: Comment on above: For patients on eltr ombopag therapy, use of [facility] [place] TBIL is not recommended. Eosinophils/100 WBC (Bld) 1.8 % 0-5 [facility] Work Phone: Neutrophils (Bld) [#/Vol] 6.5 10*3/uL 2.0-7.7 [facility] Work Phone: Neutrophils/100 WBC (Bld) 77.1 % 47-70 [facility] Work Phone: Protein [Mass/Vol] 6.8 g/dL 6.4-8.[address] [facility] Work Phone: [phone] Blood lymphocytes/100 leukoc yteson 07-26-2021 Lymphocytes/100 WBC (Bld) 12.6 % 19-41 [facility] Work Phone: Blood monocytes/100 leukocyt eson 07-26-2021 Monocytes/100 WBC (Bld) 7.4 % 0-10 [facility] Work Phone: Laboratory - Chemistry and C hemistry - challengeon 07-26-2021 ALP [Catalytic activity/Vol] 83 U/L 45-117 [facility] Work Phone: ALT [Catalytic activity/Vol] 46 U/L 16-61 [facility] Work Phone: Globulin (S) [Mass/Vol] 3.4 g/dL 2.2-4.2 [facility] Work Phone: Laboratory - Hematology and Cell countson 07-26-2021 Immature granulocytes/100 WBC (Bld) 0.500 % 0.0-0.9 [facility] Work Phone: Comment on above: IG% - Immature Granu locytes (promyelocytes, myelocytes and metamyelocytes) > 1% indicates that a LEFT SHIFT is Present. Nucleated RBC/100 WBC (Bld) [Ratio] 0 % 0-5 [facility] Work Phone: Serum or plasma albumin nicole urement (mass/volume)on 07-26-2021 Albumin [Mass/Vol] 3.4 g/dL 3.2-5.0 [facility] Work Phone: Serum or plasma albumin/glob ulin mass ratioon 07-26-2021 Albumin/Globulin [Mass ratio] 1.0 {ratio} 0.9-2.4 [facility] Work Phone: Thin prep Papanicolaou smear with manual screeningon 07-26-2021 Thin prep Papanicolaou smear with manual screening 26 U/L 15-37 [facility] Work Phone: Basophil percentageon 2021 Basophil percentage 25-50 SEEN /hpf 0-5 [facility] Work Phone: Bilirubin Test strip Ql (U)o n 07-25-2021 Bilirubin Ql (U) 1 mg/dL Negative [facility] Work Phone: Comment on above: COLOR OF URINE MAY A FFECT DIPSTICK RESULTS. Culture, urineon 07-25-2021 Bacteria identified Cx Nom (U) Escherichia coli [facility] Work Phone: Ketones Test strip Ql (U)on 07-25-2021 Ketones Ql (U) 5 mg/dl Negative [facility] Work Phone: Mucus LM Ql (Urine sed)on Mucus Ql (Urine sed) 0 SEEN /hpf [facility] Work Phone: Nitrite Test strip Ql (U)on 07-25-2021 Nitrite Ql (U) Positive Negative [facility] Work Phone: Protein Test strip Ql (U)on 07-25-2021 Protein Ql (U) 30 mg/dl Negative [facility] Work Phone: Squamous epithelial cells de tection in urine sediment by light microscopyon 07-25-2021 Epithelial cells.squamous LM Ql (Urine sed) 0-5 SEEN /hpf 0-5 [facility] Work Phone: Urine blood detectionon 07-13 RBC Ql (U) 50 /ul Negative [facility] Work Phone: RBC Ql (U) 0-5 SEEN /hpf 0-5 [facility] Work Phone: Urine clarityon 07-25-2021 Clarity (U) Sl. Cloudy Clear [facility] Work Phone: Urine color determinationon 07-25-2021 Color (U) Yellow Yellow [facility] Work Phone: Urine glucose detectionon Glucose Ql (U) Normal mg/dl Normal [facility] Work Phone: Urine leukocyte esterase det ection by dipstickon 07-25-2021 Leukocyte esterase Test strip Ql (U) 500 /ul Negative [facility] Work Phone: Urine pHon 07-25-2021 pH (U) 6.0 [pH] 5.0 - 8.0 [facility] Work Phone: Urine sediment bacteria coun t by microscopy (number/high power field)on 07-25-2021 Bacteria LM.HPF (Urine sed) [#/Area] 1 /[HPF] None Seen [facility] Work Phone: Urine specific gravity measu rementon 07-25-2021 Specific gravity (U) [Rel density] 1.020 1.002-1.03 0 [facility] Work Phone: Urobilinogen Auto test strip Ql (U)on 07-25-2021 Urobilinogen Ql (U) 8 mg/dl Normal [facility] Work Phone: LAVENDER TOP TUBEon 07-25-19 [facility] CBC,PLATELETSon 07-23-2021 Hematocrit (Bld) [Volume fraction] 40.3 % Normal 39.6-48.8 [facility] Comment on above: Performed By: #### H EMO #### [facility] (DEFAULT) [address] [place] [address] Hemoglobin (Bld) [Mass/Vol] 13.9 g/dL Normal 13.4-16.8 [facility] Comment on above: Performed By: #### H EMOGC #### [facility] (DEFAULT) [address] [place] [address] MCV (RBC) [Entitic vol] 88.0 fL Normal 79.0-94.5 [facility] Comment on above: Performed By: #### H EMOGC #### [facility] (DEFAULT) [address] [place] [address] 83044 Mean Cell Hgb 30.3 pg Normal 26.1-33.3 [facility] Comment on above: Performed By: #### H EMOGC #### [facility] (DEFAULT) [address] [place] [address] 04438 Mean Cell Hgb Conc 34.5 g/dL Normal 31.9-36.5 [facility] Comment on above: Performed By: #### H EMOGC #### [facility] (DEFAULT) [address] [place] [address] 60718 Platelet mean volume (Bld) [Entitic vol] 10.5 fL Normal 8.7-12.3 [facility] Comment on above: Performed By: #### H EMO #### [facility] (DEFAULT) [address] [place] [address]19 Platelets (Bld) [#/Vol] 185 10*3/uL Normal 146-337 [facility] Comment on above: Performed By: #### H EMO #### [facility] (DEFAULT) [address] [place] [address] 15551 RBC (Bld) [#/Vol] 4.58 10*6/uL Normal 4.38-5.83 [facility] Comment on above: Performed By: #### H EMO #### [facility] (DEFAULT) [address] [place] [address] 84318 RBC Distribution 14.1 % Normal 10.9-14.[address] [facility] Comment on above: Performed By: #### H EMO #### [facility] (DEFAULT) [address] [place] [address] 40568 WBC (Bld) [#/Vol] 8.34 10*3/uL Normal 3.73-10.10 [facility] Comment on above: Performed By: #### H EMO #### [facility] (DEFAULT) [address] [place] [address]66 Erythrocyte distribution width (RBC) [Ratio] 14.1 % 10.9 - 14.3 % [facility] Hematocrit (Bld) [Volume fraction] 40.3 % 39.6 - 48.8 % [facility] Hemoglobin (Bld) [Mass/Vol] 13.9 g/dL 13.4 - 16.8 g/dL [facility] Interpretation and review of laboratory results Normal [facility] MCH (RBC) [Entitic mass] 30.3 pg 26.1 - 33.3 pg [facility] MCHC (RBC) [Mass/Vol] 34.5 g/dL 31.9 - 36.5 g/dL [facility] MCV (RBC) [Entitic vol] 88.0 fL 79.0 - 94.5 fL [facility] Platelet mean volume (Bld) [Entitic vol] 10.5 fL 8.7 - 12.3 fL [facility] Platelets (Bld) [#/Vol] 185 10*3/uL 146 - 337 K/uL [facility] RBC (Bld) [#/Vol] 4.58 10*6/uL [facility] WBC (Bld) [#/Vol] 8.34 10*3/uL 3.73 - 10.10 K/uL [facility] CHEM 7 (LYTES,BUN,CREA,GLUC) on 07-23-2021 Anion gap [Moles/Vol] 11 mmol/L Normal 7-17 [facility] Comment on above: Performed By: #### A 1CB #### [facility] (DEFAULT) [address] [address] Chloride [Moles/Vol] 111 mmol/L High 98-108 [facility] Comment on above: Performed By: #### A 1CB #### [facility] (DEFAULT) [address] [address] CO2 [Moles/Vol] 22 mmol/L Normal 21-31 [facility] Comment on above: Performed By: #### A 1CB #### [facility] (DEFAULT) [address] [address] Creatinine [Mass/Vol] 0.90 mg/dL Normal 0.70-1.30 [facility] Comment on above: Performed By: #### A 1CB #### [facility] (DEFAULT) [address] [address] GFR/1.73 sq M.predicted among non-blacks MDRD (S/P/Bld) [Vol rate/Area] 89 mL/min/{1.73_m2} Normal >=60 [facility] Comment on above: Result Comment: Repo rted eGFR is based on the CKD-EPI 2020 equation using creatinine, age, and sex. Performed By: #### A 1CB #### [facility] (DEFAULT) [address] [place] [address] 30660 Glucose [Mass/Vol] 84 mg/dL Normal 70-99 [facility] Comment on above: Performed By: #### A 1CB #### [facility] (DEFAULT) [address] [place] [address] 97868 Osmolality [Osmolality] 295 mosm/kg Normal 278-305 [facility] Comment on above: Performed By: #### A 1CB #### [facility] (DEFAULT) [address] [place] [address]6586 Potassium [Moles/Vol] 3.6 mmol/L Normal 3.5-5.0 [facility] Comment on above: Performed By: #### A 1CB #### [facility] (DEFAULT) [address] [place] [address] 22743 Sodium [Moles/Vol] 140 mmol/L Normal 135-145 [facility] Comment on above: Performed By: #### A 1CB #### [facility] (DEFAULT) [address] [place] [address] 18851 Urea nitrogen [Mass/Vol] 23 mg/dL Normal 7-25 [facility] Comment on above: Performed By: #### A 1CB #### [facility] (DEFAULT) [address] [place] [address] 72763 Urea nitrogen/Creatinine [Mass ratio] 26 mg/mg Normal [facility] Comment on above: Performed By: #### A 1CB #### [facility] (DEFAULT) [address] [place] [address] 30832 Anion gap [Moles/Vol] 11 mmol/L 7 - 17 mmol/L [facility] Chloride [Moles/Vol] 111 mmol/L High 98 - 10 8 mmol/L [facility] CO2 [Moles/Vol] 22 mmol/L 21 - 31 mmol/L [facility] Creatinine [Mass/Vol] 0.90 mg/dL 0.70 - 1.30 mg/dL [facility] GFR/1.73 sq M.predicted CKD-EPI (S/P/Bld) [Vol rate/Area] 89 >=60 mL/min/1.7 3m2 [facility] Comment on above: Reported eGFR is bas ed on the CKD-EPI 2020 equation using creatinine, age, and sex. Glucose [Mass/Vol] 84 mg/dL 70 - 99 mg/dL [facility] Osmolality Calc [Osmolality] 295 [facility] Potassium [Moles/Vol] 3.6 mmol/L 3.5 - 5.0 mmol/L [facility] Sodium [Moles/Vol] 140 mmol/L 135 - 145 mmol/L [facility] Urea nitrogen [Mass/Vol] 23 mg/dL 7 - 25 mg/dL [facility] Urea nitrogen/Creatinine [Mass ratio] 26 mg/mg [facility] DEVICE EVALUATION (SCANNED)o n 07-23-2021 [facility] HEPATIC FUNCTION PANELon Albumin [Mass/Vol] 4.0 g/dL Normal 3.5-5.0 [facility] Comment on above: Performed By: #### A 1CB #### [facility] (DEFAULT) [address] [place] [address] ALP [Catalytic activity/Vol] 64 U/L Normal 32-126 [facility] Comment on above: Performed By: #### A 1CB #### [facility] (DEFAULT) [address] [place] [address] ALT [Catalytic activity/Vol] 45 U/L Normal 10-52 [facility] Comment on above: Performed By: #### A 1CB #### [facility] (DEFAULT) [address] [place] [address] 09876 AST [Catalytic activity/Vol] 33 U/L Normal 10-39 [facility] Comment on above: Performed By: #### A 1CB #### [facility] (DEFAULT) [address] [place] [address] Bilirubin [Mass/Vol] 1.3 mg/dL Normal <1.5 [facility] Comment on above: Performed By: #### A 1CB #### [facility] (DEFAULT) [address] [place] [address] Bilirubin.indirect [Mass/Vol] 0.3 mg/dL High <0.3 [facility] Comment on above: Performed By: #### A 1CB #### [facility] (DEFAULT) [address] [place] [address]22 Protein [Mass/Vol] 6.7 g/dL Normal 6.4-8.3 [facility] Comment on above: Performed By: #### A 1CB #### [facility] (DEFAULT) [address] [place] [address]771 Albumin [Mass/Vol] 4.0 g/dL 3.5 - 5.0 g/dL [facility] ALP [Catalytic activity/Vol] 64 U/L 32 - 126 U/L [facility] ALT [Catalytic activity/Vol] 45 U/L 10 - 52 U/L [facility] AST [Catalytic activity/Vol] 33 U/L 10 - 39 U/L [facility] Bilirubin [Mass/Vol] 1.3 mg/dL <1.5 [facility] Bilirubin.direct [Mass/Vol] 0.3 mg/dL High <0.3 [facility] Protein [Mass/Vol] 6.7 g/dL 6.4 - 8.3 g/dL [facility] LT BLUE TOP TUBEon 2 [facility] No Panel Informationon 07-23 Interpretation and review of laboratory results Abnormal [facility] PT,INR,PTTon 07-23-2021 aPTT Coag (Bld) [Time] 28.6 s Normal 24.0-34.3 [facility] Comment on above: Result Comment: Resu lts inconsistent with previous results Performed By: #### U R #### [facility] (DEFAULT) [address] [place] [address] 38135 INR Coag (PPP) [Relative time] 1.2 {INR} High 0.9-1.1 [facility] Comment on above: Performed By: #### U R #### [facility] (DEFAULT) [address] [place] [address] 51321 PT Coag (PPP) [Time] 15.2 s High 11.9-14.2 [facility] Comment on above: Performed By: #### U R #### [facility] (DEFAULT) [address] [place] [address]958 PT,INR,PTTOrdered By: Jane Henriquez on 07-23-2021 aPTT Coag (PPP) [Time] 28.6 s [facility] Comment on above: Results inconsistent with previous results INR Coag (Bld) [Relative time] 1.2 {INR} High [facility] Interpretation and review of laboratory results Abnormal [facility] PT Coag (PPP) [Time] 15.2 s High [facility] CALCIUMon 07-22-2021 Calcium [Mass/Vol] 8.7 mg/dL Normal 8.6-10.5 [facility] Comment on above: Performed By: #### U R #### [facility] (DEFAULT) [address] [place] [address]85 Calcium [Mass/Vol] 8.7 mg/dL 8.6 - 10. 5 mg/dL [facility] CBC AND ELECTRONIC DIFFon Basophils (Bld) [#/Vol] 0.06 10*3/uL Normal 0.00-0.09 [facility] Comment on above: Performed By: #### L [id number], [id number] #### [facility] (DEFAULT) [address] [place] [address] 71366 Basophils/100 WBC (Bld) 0.7 % Normal [facility] Comment on above: Performed By: #### Say [id number], [id number] #### [facility] (DEFAULT) [address] [address] DIFF STATUS Electronic Differential Normal [facility] Comment on above: Performed By: #### Say [id number], [id number] #### [facility] (DEFAULT) [address] [place] [address] 51568 Eosinophils (Bld) [#/Vol] 0.18 10*3/uL Normal 0.00-0.48 [facility] Comment on above: Performed By: #### Say SEGOVIA [id number] #### [facility] (DEFAULT) [address] [address] Eosinophils/100 WBC (Bld) 2.1 % Normal [facility] Comment on above: Performed By: #### Say SEGOVIA [id number] #### [facility] (DEFAULT) [address] [address] Hematocrit (Bld) [Volume fraction] 42.1 % Normal 39.6-48.8 [facility] Comment on above: Performed By: #### Say [id number], [id number] #### [facility] (DEFAULT) [address] [address] Hemoglobin (Bld) [Mass/Vol] 14.0 g/dL Normal 13.4-16.8 [facility] Comment on above: Performed By: #### Say [id number], [id number] #### [facility] (DEFAULT) [address] [address] Immature Grans % 0.6 % Normal [facility] Comment on above: Performed By: #### Say [id number], [id number] #### [facility] (DEFAULT) [address] [address] Immature Grans Absolute 0.05 K/uL Normal <=0.08 [facility] Comment on above: Performed By: #### L [id number], [id number] #### [facility] (DEFAULT) [address] [place] [address] Lymphocytes (Bld) [#/Vol] 1.10 10*3/uL Normal 0.83-3.57 [facility] Comment on above: Performed By: #### L [id number], [id number] #### [facility] (DEFAULT) [address] [place] [address] 55300 Lymphocytes/100 WBC (Bld) 13.1 % Normal [facility] Comment on above: Performed By: #### L [id number], [id number] #### [facility] (DEFAULT) [address] [address] MCV (RBC) [Entitic vol] 90.3 fL Normal 79.0-94.5 [facility] Comment on above: Performed By: #### L [id number], [id number] #### [facility] (DEFAULT) [address] [place] [address]01 Mean Cell Hgb 30.0 pg Normal 26.1-33.3 [facility] Comment on above: Performed By: #### L [id number], [id number] #### [facility] (DEFAULT) [address] [address] Mean Cell Hgb Conc 33.3 g/dL Normal 31.9-36.5 [facility] Comment on above: Performed By: #### L [id number], [id number] #### [facility] (DEFAULT) [address] [place] [address]984 Monocytes (Bld) [#/Vol] 0.61 10*3/uL Normal 0.24-0.93 [facility] Comment on above: Performed By: #### L [id number], [id number] #### [facility] (DEFAULT) [address] [address] Monocytes/100 WBC (Bld) 7.3 % Normal [facility] Comment on above: Performed By: #### Say [id number], [id number] #### U [facility] (DEFAULT) [address] [place] [address]117 Nucleated RBC 0.0 /100 WBC Normal <=0.2 [facility] Comment on above: Performed By: #### Say [id number], [id number] #### Andres [facility] (DEFAULT) [address] [place] [address] Platelet mean volume (Bld) [Entitic vol] 11.0 fL Normal 8.7-12.3 [facility] Comment on above: Performed By: #### Say [id number], [id number] #### Andres [facility] (DEFAULT) [address] [address] Platelets (Bld) [#/Vol] 183 10*3/uL Normal 146-337 [facility] Comment on above: Performed By: #### Say [id number], [id number] #### [facility] (DEFAULT) [address] [address] RBC (Bld) [#/Vol] 4.66 10*6/uL Normal 4.38-5.83 [facility] Comment on above: Performed By: #### Say [id number], [id number] #### Andres [facility] (DEFAULT) [address] [address] RBC Distribution 14.4 % High 10.9-14.[address] [facility] Comment on above: Performed By: #### L [id number], [id number] #### U [facility] (DEFAULT) [address] [address] Segs + Bands Auto 76.2 % Normal [facility] Comment on above: Performed By: #### L [id number], [id number] #### Andres [facility] (DEFAULT) [address] [address] Segs + Bands,Absolute Auto 6.41 K/uL High 1.57-6.19 [facility] Comment on above: Performed By: #### L [id number], [id number] #### [facility] (DEFAULT) [address] [place] [address] WBC (Bld) [#/Vol] 8.41 10*3/uL Normal 3.73-10.10 [facility] Comment on above: Performed By: #### L [id number], [id number] #### [facility] (DEFAULT) [address] [address] Basophils (Bld) [#/Vol] 0.06 10*3/uL 0.00 - 0.09 K/uL [facility] Basophils/100 WBC (Bld) 0.7 % [facility] Differential cell count method Nom (Bld) Electronic Differential [facility] Eosinophils (Bld) [#/Vol] 0.18 10*3/uL 0.00 - 0.48 K/uL [facility] Eosinophils/100 WBC (Bld) 2.1 % [facility] Erythrocyte distribution width (RBC) [Ratio] 14.4 % High 10.9 - 14.3 % [facility] Hematocrit (Bld) [Volume fraction] 42.1 % 39.6 - 48.8 % [facility] Hemoglobin (Bld) [Mass/Vol] 14.0 g/dL 13.4 - 16.8 g/dL [facility] Immature granulocytes (Bld) [#/Vol] 0.05 10*3/uL <=0.08 [facility] Immature granulocytes/100 WBC (Bld) 0.6 % [facility] Interpretation and review of laboratory results Abnormal [facility] Lymphocytes (Bld) [#/Vol] 1.10 10*3/uL 0.83 - 3.57 K/uL [facility] Lymphocytes/100 WBC (Bld) 13.1 % [facility] MCH (RBC) [Entitic mass] 30.0 pg 26.1 - 33.3 pg [facility] MCHC (RBC) [Mass/Vol] 33.3 g/dL 31.9 - 36.5 g/dL [facility] MCV (RBC) [Entitic vol] 90.3 fL 79.0 - 94.5 fL [facility] Monocytes (Bld) [#/Vol] 0.61 10*3/uL 0.24 - 0.93 K/uL [facility] Monocytes/100 WBC (Bld) 7.3 % [facility] Neutrophils (Bld) [#/Vol] 6.41 10*3/uL High 1.57 - 6.19 K/uL [facility] Nucleated RBC/100 WBC (Bld) [Ratio] 0.0 % <=0.2 /100 WBC [facility] Platelet mean volume (Bld) [Entitic vol] 11.0 fL 8.7 - 12.3 fL [facility] Platelets (Bld) [#/Vol] 183 10*3/uL 146 - 337 K/uL [facility] RBC (Bld) [#/Vol] 4.66 10*6/uL [facility] Segmented neutrophils/100 WBC (Bld) 76.2 % [facility] WBC (Bld) [#/Vol] 8.41 10*3/uL 3.73 - 10.10 K/uL [facility] CHM 7 - EDon 07-22-2021 Anion gap [Moles/Vol] 12 mmol/L Normal 7-17 [facility] Comment on above: Performed By: #### U R #### [facility] (DEFAULT) [address] [place] [address] Chloride [Moles/Vol] 109 mmol/L High 98-108 [facility] Comment on above: Performed By: #### U R #### [facility] (DEFAULT) [address] [place] [address] CO2 [Moles/Vol] 22 mmol/L Normal 21-31 [facility] Comment on above: Performed By: #### U R #### U [facility] (DEFAULT) [address] [address] Creatinine [Mass/Vol] 1.03 mg/dL Normal 0.70-1.30 [facility] Comment on above: Performed By: #### U R #### U [facility] (DEFAULT) [address] [address] GFR/1.73 sq M.predicted among non-blacks MDRD (S/P/Bld) [Vol rate/Area] 76 mL/min/{1.73_m2} Normal >=60 [facility] Comment on above: Result Comment: Repo rted eGFR is based on the CKD-EPI 2020 equation using creatinine, age, and sex. Performed By: #### U R #### U [facility] (DEFAULT) [address] [address] Glucose [Mass/Vol] 99 mg/dL Normal 70-99 [facility] Comment on above: Performed By: #### U R #### [facility] (DEFAULT) [address] [address] Osmolality [Osmolality] 297 mosm/kg Normal 278-305 [facility] Comment on above: Performed By: #### U R #### U [facility] (DEFAULT) [address] [place] [address] Potassium [Moles/Vol] 4.3 mmol/L Normal 3.5-5.0 [facility] Comment on above: Performed By: #### U R #### U [facility] (DEFAULT) [address] [address] Sodium [Moles/Vol] 139 mmol/L Normal 135-145 [facility] Comment on above: Performed By: #### U R #### U [facility] (DEFAULT) [address] [place] [address] Urea nitrogen [Mass/Vol] 27 mg/dL High 7-25 [facility] Comment on above: Performed By: #### U R #### [facility] (DEFAULT) [address] [place] [address] Urea nitrogen/Creatinine [Mass ratio] 26 mg/mg Normal [facility] Comment on above: Performed By: #### U R #### [facility] (DEFAULT) [address] [place] [address] Anion gap [Moles/Vol] 12 mmol/L 7 - 17 mmol/L [facility] [facility] Chloride [Moles/Vol] 109 mmol/L High 98 - 10 8 mmol/L [facility] CO2 [Moles/Vol] 22 mmol/L 21 - 31 mmol/L [facility] Creatinine [Mass/Vol] 1.03 mg/dL 0.70 - 1.30 mg/dL [facility] GFR/1.73 sq M.predicted CKD-EPI (S/P/Bld) [Vol rate/Area] 76 >=60 mL/min/1.7 3m2 [facility] Comment on above: Reported eGFR is bas ed on the CKD-EPI 2020 equation using creatinine, age, and sex. Glucose [Mass/Vol] 99 mg/dL 70 - 99 mg/dL [facility] Osmolality Calc [Osmolality] 297 [facility] Potassium [Moles/Vol] 4.3 mmol/L 3.5 - 5.0 mmol/L [facility] Sodium [Moles/Vol] 139 mmol/L 135 - 145 mmol/L [facility] Urea nitrogen [Mass/Vol] 27 mg/dL High 7 - 25 mg/dL [facility] Urea nitrogen/Creatinine [Mass ratio] 26 mg/mg [facility] CT ABDOMEN/PELVIS WITHOUT CO NTRASTon 07-22-2021 CT [...] findings in the abdomen or pelvis. Normal [facility] CT Abdomen and Pelvis WO con [...] acute findings in the abdomen or pelvis. [facility] Radiology Study observation (narrative) [facility] CT Abdomen and Pelvis WO con trastOrdered By: Jeanine Chamberlain on 07-22-2021 [facility] Work Phone: CT Head limitedon 07-22-2021 IMPRESSION: 1. Areas of relative hyperdensity in the left MCA and BRICK CLEANER territory involving the left basal ganglia, left [...] relative hyperdensity in the left MCA and BRICK CLEANER territory involving the left basal ganglia, left [...] relative hyperdensity in the left MCA and BRICK CLEANER territory involving the left basal ganglia, left [...] relative hyperdensity in the left MCA and BRICK CLEANER territory involving the left basal ganglia, left [...] I have reviewed and approved this report. [facility] Radiology Study observation (narrative) [facility] CT Head limitedOrdered By: Gamaliel Neves on 07-22-2021 [facility] Work Phone: CT STROKE HEAD-STROKE ALERT ONLYon [...] relative hyperdensity in the left MCA and BRICK CLEANER territory involving the left basal ganglia, left [...] relative hyperdensity in the left MCA and BRICK CLEANER territory involving the left basal ganglia, left [...] have reviewed and approved this report. Normal [facility] GLUCOSE POCon 07-22-2021 Glucose [Mass/Vol] 96 mg/dL 70 - 99 mg/dL [facility] Poc Sample Type CAPBL [facility] Test performed at ad dress of the patient encounter. [facility] GOLD TOP TUBEon 07-22-2021 [facility] Glucose Glucometer (BldC) [M ass/Vol]on 07-22-2021 Glucose [Mass/Vol] 103 mg/dL 74-106 [facility] Work Phone: Comment on above: MANAGEMENT OF PATIEN T CARE PER NURSING PROTOCOL HEPATIC FUNCTION PANELon Albumin [Mass/Vol] 4.1 g/dL Normal 3.5-5.0 [facility] Comment on above: Performed By: #### U R #### [facility] (DEFAULT) [address] [place] [address] ALP [Catalytic activity/Vol] 62 U/L Normal 32-126 [facility] Comment on above: Performed By: #### U R #### U [facility] (DEFAULT) [address] [place] [address] ALT [Catalytic activity/Vol] 48 U/L Normal 10-52 [facility] Comment on above: Performed By: #### U R #### U [facility] (DEFAULT) [address] [place] [address] AST [Catalytic activity/Vol] 40 U/L High 10-39 [facility] Comment on above: Performed By: #### U R #### U [facility] (DEFAULT) [address] [place] [address] Bilirubin [Mass/Vol] 1.2 mg/dL Normal <1.5 [facility] Comment on above: Performed By: #### U R #### [facility] (DEFAULT) [address] [place] [address] Bilirubin.indirect [Mass/Vol] 0.2 mg/dL Normal <0.3 [facility] Comment on above: Performed By: #### U R #### U [facility] (DEFAULT) [address] [place] [address] Protein [Mass/Vol] 6.9 g/dL Normal 6.4-8.3 [facility] Comment on above: Performed By: #### U R #### [facility] (DEFAULT) [address] [place] [address] Albumin [Mass/Vol] 4.1 g/dL 3.5 - 5.0 g/dL [facility] ALP [Catalytic activity/Vol] 62 U/L 32 - 126 U/L [facility] ALT [Catalytic activity/Vol] 48 U/L 10 - 52 U/L [facility] AST [Catalytic activity/Vol] 40 U/L High 10 - 39 U/L [facility] Bilirubin [Mass/Vol] 1.2 mg/dL <1.5 [facility] Bilirubin.direct [Mass/Vol] 0.2 mg/dL <0.3 [facility] Protein [Mass/Vol] 6.9 g/dL 6.4 - 8.3 g/dL [facility] HIGH SENSITIVITY TROPONIN I - SINGLE ORDERon 07-22-2021 hs-Troponin I 10 ng/L Normal <53 [facility] Comment on above: Order Comment: Acute Coronary Syndrome (ACS): Initial Evaluation and Management:[email or web address] Performed By: #### H [facility] #### [facility] (DEFAULT) [address] [place] [address] Interpretation and review of laboratory results Normal [facility] Troponin I.cardiac DL <= 0.01 ng/mL [Mass/Vol] 10 ng/L <53 [facility] LACTATE, INITIALon 2 0 Hour Lacate 0.9 mmol/L Normal 0.5-1.6 [facility] Comment on above: Performed By: #### L ABLACTINT, [id number] #### [facility] (DEFAULT) [address] [place] [address] Interpretation and review of laboratory results Normal [facility] Lactate [Moles/Vol] 0.9 mmol/L 0.5 - 1. 6 mmol/L [facility] LIPASEon 07-22-2021 Lipase [Catalytic activity/Vol] 37 U/L Normal 11-82 [facility] Comment on above: Performed By: #### U R #### [facility] (DEFAULT) [address] [place] [address] Lipase [Catalytic activity/Vol] 37 U/L 11 - 82 U/L [facility] MAGNESIUMon 07-22-2021 Magnesium [Mass/Vol] 2.0 mg/dL Normal 1.6-2.6 [facility] Comment on above: Performed By: #### U R #### [facility] (DEFAULT) [address] [place] [address] Magnesium [Mass/Vol] 2.0 mg/dL 1.6 - 2 .6 mg/dL [facility] No Panel Informationon 07-22 [facility] Interpretation and review of laboratory results Abnormal [facility] Interpretation and review of laboratory results Normal [facility] PHOSPHATE, INORGANICon 07-22 Phosphorous 3.1 mg/dL Normal 2.2-4.6 [facility] Comment on above: Performed By: #### U R #### [facility] (DEFAULT) [address] [place] [address] Phosphate [Mass/Vol] 3.1 mg/dL 2.2 - 4 .6 mg/dL [facility] PTINR-STROKEon 07-22-2021 INR Coag (PPP) [Relative time] 1.2 {INR} High 0.9-1.1 [facility] Comment on above: Performed By: #### Say [id number], [id number] #### [facility] (DEFAULT) [address] [place] [address] PT Coag (PPP) [Time] 14.5 s High 11.9-14.2 [facility] Comment on above: Performed By: #### Say [id number], [id number] #### [facility] (DEFAULT) [address] [place] [address] INR Coag (Bld) [Relative time] 1.2 {INR} High [facility] Interpretation and review of laboratory results Abnormal [facility] PT Coag (PPP) [Time] 14.5 s High [facility] PTTon 07-22-2021 aPTT Coag (Bld) [Time] 23.2 s Low 24.0-34.3 [facility] Comment on above: Performed By: #### L [id number], [id number] #### [facility] (DEFAULT) [address] [place] [address] PTTOrdered By: Ahmet Bay er on 07-22-2021 aPTT Coag (PPP) [Time] 23.2 s Low OS U [facility] Interpretation and review of laboratory results Abnormal [facility] Portable XR Chest Views APon 07-22-2021 IMPRESSION: [...] No dense consolidation. RADIOLOGY Jacki Sharp [facility] - 07/22/2021 EXAM: XR CHEST AP PORTABLE ED, 07/22/2021 15:21 PM COMPARISON: Compared to February 28, 2015 CLINICAL INDICATIONS: AMS FINDINGS: (Adequate technique) Implanted Devices: Unchanged pacemaker device and partially visualized cervical spine fixation hardware. Thorax: Cardiomegaly. No pneumothorax. No dense consolidation. IMPRESSION IMPRESSION: Cardiomegaly. No acute process. I personally viewed and interpreted these images and I have reviewed and approved this report. [facility] Radiology Study observation (narrative) [facility] Portable XR Chest Views APOr dered By: Jacki Sharp on 07-22-2021 [facility] Work Phone: T4 FREEon 07-22-2021 Free T4 [Mass/Vol] 1.19 ng/dL Normal 0.89-1.76 [facility] Comment on above: Performed By: #### H [facility] #### [facility] (DEFAULT) [address] [place] [address] Free T4 [Mass/Vol] 1.19 ng/dL 0.89 - 1.76 ng/dL [facility] Interpretation and review of laboratory results Normal [facility] TSH W/FT4 REFLEXon 2 TSH 5.620 uIU/mL High 0.550-4.78 0 [facility] Comment on above: Performed By: #### H [facility] #### [facility] (DEFAULT) [address] [address] Interpretation and review of laboratory results Abnormal [facility] TSH Qn 5.620 m[IU]/L High [facility] URINALYSISon 07-22-2021 Appearance (U) Clear Normal Clear [facility] Comment on above: Performed By: #### Say SEGOVIA [id number] #### [facility] (DEFAULT) [address] [address] Bacteria ABSENT Normal ABSENT [facility] Comment on above: Performed By: #### Say SEGOVIA [id number] #### [facility] (DEFAULT) [address] [place] [address] Blood Urine Small Abnormal Negative [facility] Comment on above: Performed By: #### Say SEGOVIA [id number] #### [facility] (DEFAULT) [address] [address] Color (U) Yellow Normal Yellow [facility] Comment on above: Performed By: #### Say SEGOVIA [id number] #### [facility] (DEFAULT) [address] [place] [address] Glucose Ql (U) Negative Normal Negative [facility] Comment on above: Performed By: #### Say SEGOVIA [id number] #### Andres [facility] (DEFAULT) [address] [address] Ketones Ql (U) Negative Normal Negative [facility] Comment on above: Performed By: #### Say SEGOVIA [id number] #### Andres [facility] (DEFAULT) [address] [address] Leukocyte esterase Test strip Ql (U) Small Abnormal Negative [facility] Comment on above: Performed By: #### Say SEGOVIA [id number] #### [facility]res [facility] (DEFAULT) [address] [address] Nitrites Urine Negative Normal Negative [facility] Comment on above: Performed By: #### Say SEGOVIA [id number] #### Andres [facility] (DEFAULT) [address] [address] pH (U) 6.0 [pH] Normal 5.0-7.0 [facility] Comment on above: Performed By: #### Say SEGOVIA [id number] #### Andres [facility] (DEFAULT) [address] [address] Protein Urine Negative Normal Negative [facility] Comment on above: Performed By: #### aSy SEGOVIA [id number] #### Andres [facility] (DEFAULT) [address] [address] RBC Urine 0-2 Normal 0-2 [facility] Comment on above: Performed By: #### Say SEGOVIA [id number] #### Andres [facility] (DEFAULT) [address] [address] Specific [place] Urine 1.010 Normal 1.001 -1.03 5 [facility] Comment on above: Performed By: #### Say SEGOVIA [id number] #### [facility] (DEFAULT) [address] [place] [address] Squamous/Epithelial Cells 0/hpf = 0+ Normal 1/hpf = 1+, 2-5/hpf = 2+, 0/hpf = 0+, ABSENT [facility] Comment on above: Performed By: #### L [id number], [id number] #### [facility] (DEFAULT) [address] [place] [address] Urobilinogen Urine 2.0 E.U./dL Abnormal 0.2 E.U/dL, 1.0 E.U/dL [facility] Comment on above: Performed By: #### L [id number], [id number] #### [facility] (DEFAULT) [address] [place] [address] WBC Urine 6-9 Abnormal 0-5 [facility] Comment on above: Performed By: #### L [id number], [id number] #### [facility] (DEFAULT) [address] [place] [address] Appearance (U) Clear Clear [facility] Bacteria LM Ql (Urine sed) ABSENT ABSENT [facility] Color (U) Yellow Yellow [facility] Epithelial cells.squamous LM Ql (Urine sed) 0/hpf = 0+ 1/hpf = 1+, 2-5/hpf = 2+, 0/hpf = 0+, ABSENT [facility] Glucose Test strip (U) [Mass/Vol] Negative Negative [facility] Interpretation and review of laboratory results [facility]normal [facility] Ketones (U) [Mass/Vol] Negative Negative [facility] Leukocyte esterase Test strip Ql (U) Small Abnormal Negative [facility] Nitrite Ql (U) Negative Negative [facility] pH (U) 6.0 [pH] 5.0 - 7.0 [facility] Protein (U) [Mass/Vol] Negative Negative [facility] RBC (U) [#/Vol] Small Abnormal Negative [facility] RBC LM.HPF (Urine sed) [#/Area] 0-2 0 - 2 /HPF [facility] Specific gravity (U) [Rel density] 1.010 [facility] Urobilinogen (U) [Mass/Vol] 2.0 E.U./dL Abnormal 0.2 E.U/dL, 1.0 E.U/dL [facility] WBC LM.HPF (Urine sed) [#/Area] 6-9 Abnormal 0 - 5 /HPF [facility] URINE CULTUREon 07-22-2021 Amikacin [Susceptibility] <=2 Invalid Interpretation Code [facility] Comment on above: Order Comment: For [...] is considered significant. Performed By: #### L [id number], [id number] #### [facility] (DEFAULT) [address] [address] Cefepime [Susceptibility] 8 ug/mL Invalid Interpretation Code [facility] Comment on above: Order Comment: For [...] is considered significant. Performed By: #### L [id number], [id number] #### [facility] (DEFAULT) [address] [address] Ciprofloxacin [Susceptibility] 1 ug/mL Significant change up [facility] Comment on above: Order Comment: For [...] is considered significant. Performed By: #### L [id number], [id number] #### [facility] (DEFAULT) [address] [address] Gentamicin [Susceptibility] <=1 Invalid Interpretation Code [facility] Comment on above: Order Comment: For [...] is considered significant. Performed By: #### L [id number], [id number] #### [facility] (DEFAULT) [address] [address] Piperacillin+Tazobactam [Susceptibility] 32 ug/mL Significant change up [facility] Comment on above: Order Comment: For [...] is considered significant. Performed By: #### L [id number], [id number] #### [facility] (DEFAULT) [address] [place] [address] Tobramycin [Susceptibility] <=1 Invalid Interpretation Code [facility] Comment on above: Order Comment: For [...] is considered significant. Performed By: #### L [id number], [id number] #### [facility] (DEFAULT) [address] [place] [address] VENOUS BLOOD GASon 2 Base Excess -2.6 mmol/L Normal -3.0-3.0 [facility] Comment on above: Performed By: #### L ABLACTINT, [id number] #### [facility] (DEFAULT) [address] [place] [address] HCO3 (Bld) [Moles/Vol] 23 mmol/L Normal 22-29 [facility] Comment on above: Performed By: #### L ABLACTINT, GASV5 #### [facility] (DEFAULT) [address] [place] [address] PCO2 43 mm Hg Normal 36-52 [facility] Comment on above: Performed By: #### L ABLACTINT, GASV5 #### [facility] (DEFAULT) [address] [place] [address] pH (Bld) 7.34 [pH] Normal 7.32-7.43 [facility] Comment on above: Performed By: #### L ABLACTINT, GASV5 #### [facility] (DEFAULT) [address] [place] [address] PO2 35 mm Hg Normal [facility] Comment on above: Result Comment: Venous pO2 is not recommended for the evaluation of oxygen status, clinical correlation is recommended. Performed By: #### L ABLACTINT, GASV5 #### [facility] (DEFAULT) [address] [place] [address] sO2 52 % Low 70-80 [facility] Comment on above: Performed By: #### L ABLACTINT, GASV5 #### [facility] (DEFAULT) [address] [place] [address] Base excess Calc (Bld) [Moles/Vol] -2.6000 mmol/L -3.0 - 3.0 mmol/L [facility] CO2 (Bld) [Partial pressure] 43 mm[Hg] [facility] HCO3 (Bld) [Moles/Vol] 23 mmol/L 22 - 29 mmol/L [facility] Interpretation and review of laboratory results Abnormal [facility] Oxygen (Bld) [Partial pressure] 35 mm[Hg] mm Hg [facility] Oxygen saturation in Blood 52 % Low 70 - 80 % [facility] pH (Bld) 7.34 [pH] [facility] XR CHEST AP PORTABLE EDon XR CHEST [...] have reviewed and approved this report. Normal [facility] Basophil percentageon 2021 Chloride [Moles/Vol] 111 mmol/L 98-107 [facility] Work Phone: Glucose [Mass/Vol] 101 mg/dL 74-106 [facility] Work Phone: Comment on above: Fasting Glucose resu lt from 100 to 125 mg/dL suggests IMPAIRED HOMEOSTASIS per A.D.A. criteria. Potassium [Moles/Vol] 3.1 mmol/L 3.5-5.1 [facility] Work Phone: Sodium [Moles/Vol] 141 mmol/L 136-145 [facility] Work Phone: Laboratory - Chemistry and C hemistry - challengeon 07-21-2021 CO2 [Moles/Vol] 23.0 mmol/L 21.0-32.0 [facility] Work Phone: Urea nitrogen/Creatinine [Mass ratio] 23.8 mg/mg 10-20 [facility] Work Phone: No Panel Informationon 07-21 Estimated Creatinine Clearance Calc 60.79 ml/min [facility] Work Phone: Estimated GFR (MDRD) Amer 89 mL/min >60 [facility] Work Phone: Comment on above: GFR Calc Estimated GFR (MDRD) Non-Af Amer 73 mL/min >60 [facility] Work Phone: Comment on above: Non- GFR Calc Serum or plasma calcium nicole urement (mass/volume)on 07-21-2021 Calcium [Mass/Vol] 8.5 mg/dL 8.5-10.1 [facility] Work Phone: Serum or plasma creatinine m easurement (mass/volume)on 07-21-2021 Creatinine [Mass/Vol] 1.05 mg/dL 0.70-1.30 [facility] Work Phone: Comment on above: The validity of the calculated GFR & GFRAA in patients over 70 years has not been determined. Clinical correlation is essential. Serum or plasma urea nitroge n measurement (mass/volume)on 07-21-2021 Urea nitrogen [Mass/Vol] 25 mg/dL 7-18 [facility] Work Phone: Thin prep Papanicolaou smear with manual screeningon 07-21-2021 Thin prep Papanicolaou smear with manual screening 7 5-15 [facility] Work Phone: Basophil percentageon 2021 WBC (Bld) [#/Vol] 10.2 10*3/uL 4.4-11.0 [facility] Work Phone: Blood erythrocytes count (nu mber/volume)on 07-19-2021 RBC (Bld) [#/Vol] 4.59 10*6/uL 4.6-6.2 [facility] Work Phone: Blood hemoglobin measurement (mass/volume)on 07-19-2021 Hemoglobin (Bld) [Mass/Vol] 13.8 g/dL 13.0-16.5 [facility] Work Phone: Blood platelet mean volumeon 07-19-2021 Platelet mean volume (Bld) [Entitic vol] 10.4 fL 6.2-12.0 [facility] Work Phone: Determination of erythrocyte mean corpuscular volume (MCV)on 07-19-2021 MCV (RBC) [Entitic vol] 88.7 fL 80-94 [facility] Work Phone: Hematocrit Auto (Bld) [Volum e fraction]on 07-19-2021 Hematocrit (Bld) [Volume fraction] 40.7 % 40-54 [facility] Work Phone: Laboratory - Hematology and Cell countson 07-19-2021 Erythrocyte distribution width (RBC) [Entitic vol] 44.9 fL 35.1-43.9 [facility] Work Phone: Erythrocyte distribution width (RBC) [Ratio] 14.2 % 11.6-14.6 [facility] Work Phone: MCH (RBC) [Entitic mass] 30.1 pg 27.0-32.0 [facility] Work Phone: MCHC Auto (RBC) [Mass/Vol]on 07-19-2021 MCHC (RBC) [Mass/Vol] 33.9 g/dL 32-36 [facility] Work Phone: Platelets bldon 07-19-2021 Platelets (Bld) [#/Vol] 180 10*3/uL 150-450 [facility] Work Phone: CBC,PLATELETSon 07-17-2021 Hematocrit (Bld) [Volume fraction] 37.7 % Low 39.6-48.8 [facility] Comment on above: Performed By: #### Say [id number], [id number] #### [facility] (DEFAULT) [address] [place] [address] Hemoglobin (Bld) [Mass/Vol] 12.6 g/dL Low 13.4-16.8 [facility] Comment on above: Performed By: #### Say [id number], [id number] #### [facility] (DEFAULT) [address] [place] [address] MCV (RBC) [Entitic vol] 91.3 fL Normal 79.0-94.5 [facility] Comment on above: Performed By: #### L [id number], [id number] #### Andres [facility] (DEFAULT) [address] [place] [address] Mean Cell Hgb 30.5 pg Normal 26.1-33.3 [facility] Comment on above: Performed By: #### L [id number], [id number] #### [facility] (DEFAULT) [address] [place] [address] Mean Cell Hgb Conc 33.4 g/dL Normal 31.9-36.5 [facility] Comment on above: Performed By: #### Say SEGOVIA [id number] #### [facility]res [facility] (DEFAULT) [address] [place] [address] Platelet mean volume (Bld) [Entitic vol] 10.6 fL Normal 8.7-12.3 [facility] Comment on above: Performed By: #### Say [id number], [id number] #### [facility] (DEFAULT) [address] [place] [address] Platelets (Bld) [#/Vol] 155 10*3/uL Normal 146-337 [facility] Comment on above: Performed By: #### Say [id number], [id number] #### [facility] (DEFAULT) [address] [place] [address] RBC (Bld) [#/Vol] 4.13 10*6/uL Low 4.38-5.83 [facility] Comment on above: Performed By: #### L [id number], [id number] #### [facility] (DEFAULT) [address] [place] [address] RBC Distribution 14.2 % Normal 10.9-14.[address] [facility] Comment on above: Performed By: #### L [id number], [id number] #### [facility] (DEFAULT) [address] [place] [address] WBC (Bld) [#/Vol] 7.35 10*3/uL Normal 3.73-10.10 [facility] Comment on above: Performed By: #### L [id number], [id number] #### [facility] (DEFAULT) [address] [place] [address] Erythrocyte distribution width (RBC) [Ratio] 14.2 % 10.9 - 14.3 % [facility] Hematocrit (Bld) [Volume fraction] 37.7 % Low 39.6 - 48.8 % [facility] Hemoglobin (Bld) [Mass/Vol] 12.6 g/dL Low 13.4 - 16.8 g/dL [facility] Interpretation and review of laboratory results Abnormal [facility] MCH (RBC) [Entitic mass] 30.5 pg 26.1 - 33.3 pg [facility] MCHC (RBC) [Mass/Vol] 33.4 g/dL 31.9 - 36.5 g/dL [facility] MCV (RBC) [Entitic vol] 91.3 fL 79.0 - 94.5 fL [facility] Platelet mean volume (Bld) [Entitic vol] 10.6 fL 8.7 - 12.3 fL [facility] Platelets (Bld) [#/Vol] 155 10*3/uL 146 - 337 K/uL [facility] RBC (Bld) [#/Vol] 4.13 10*6/uL Low [facility] WBC (Bld) [#/Vol] 7.35 10*3/uL 3.73 - 10.10 K/uL [facility] CHEM 7 (LYTES,BUN,CREA,GLUC) on 07-17-2021 Anion gap [Moles/Vol] 18 mmol/L High 7-17 [facility] Comment on above: Performed By: #### C HM7 #### [facility] [facility] (DEFAULT[facility] [address] [place] [address] 31537 Chloride [Moles/Vol] 110 mmol/L High 98-108 [facility] Comment on above: Performed By: #### C HM7 #### U [facility] (DEFAULT) [address] [place] [address] 57512 CO2 [Moles/Vol] 19 mmol/L Low 21-31 [facility] Comment on above: Performed By: #### C HM7 #### U [facility] (DEFAULT) [address] [place] [address] 76901 Creatinine [Mass/Vol] 1.07 mg/dL Normal 0.70-1.30 [facility] Comment on above: Performed By: #### C HM7 #### [facility] (DEFAULT) [address] [place] [address] 84334 GFR/1.73 sq M.predicted among non-blacks MDRD (S/P/Bld) [Vol rate/Area] 72 mL/min/{1.73_m2} Normal >=60 [facility] Comment on above: Result Comment: Repo rted eGFR is based on the CKD-EPI 2020 equation using creatinine, age, and sex. Performed By: #### C HM7 #### U [facility] (DEFAULT) [address] [place] [address] 64792 Glucose [Mass/Vol] 95 mg/dL Normal 70-99 [facility] Comment on above: Performed By: #### C HM7 #### U [facility] (DEFAULT) [address] [place] [address] 73045 Osmolality [Osmolality] 303 mosm/kg Normal 278-305 [facility] Comment on above: Performed By: #### C HM7 #### U [facility] (DEFAULT) [address] [place] [address] 10351 Potassium [Moles/Vol] 3.1 mmol/L Low 3.5-5.0 [facility] Comment on above: Performed By: #### C HM7 #### [facility] (DEFAULT) [address] [place] [address] Sodium [Moles/Vol] 144 mmol/L Normal 135-145 [facility] Comment on above: Performed By: #### C HM7 #### [facility] (DEFAULT) [address] [place] [address] Urea nitrogen [Mass/Vol] 26 mg/dL High 7-25 [facility] Comment on above: Performed By: #### C HM7 #### [facility] (DEFAULT) [address] [place] [address] 70447 Urea nitrogen/Creatinine [Mass ratio] 24 mg/mg Normal [facility] Comment on above: Performed By: #### C HM7 #### [facility] (DEFAULT) [address] [place] [address] 86619 CHEM 7 (LYTES,BUN,CREA,GLUC) Ordered By: Shauna Clayton on 07-17-2021 Anion gap [Moles/Vol] 18 mmol/L High 7 - 17 mmol/L [facility] Chloride [Moles/Vol] 110 mmol/L High 98 - 10 8 mmol/L [facility] CO2 [Moles/Vol] 19 mmol/L Low 21 - 31 mmol/L [facility] Creatinine [Mass/Vol] 1.07 mg/dL 0.70 - 1.30 mg/dL [facility] GFR/1.73 sq M.predicted CKD-EPI (S/P/Bld) [Vol rate/Area] 72 >=60 mL/min/1.7 3m2 [facility] Comment on above: Reported eGFR is bas ed on the CKD-EPI 2020 equation using creatinine, age, and sex. Glucose [Mass/Vol] 95 mg/dL 70 - 99 mg/dL [facility] Interpretation and review of laboratory results Abnormal [facility] Osmolality Calc [Osmolality] 303 [facility] Potassium [Moles/Vol] 3.1 mmol/L Low 3.5 - 5.0 mmol/L [facility] Sodium [Moles/Vol] 144 mmol/L 135 - 145 mmol/L [facility] Urea nitrogen [Mass/Vol] 26 mg/dL High 7 - 25 mg/dL [facility] Urea nitrogen/Creatinine [Mass ratio] 24 mg[facility] Procedure Ordered By: Ellen Gao on 07-17-2021 Ao peak romy 1.75 m/s [facility] Work Phone: AV LVOT peak gradient 4 mmHg [facility] Work Phone: AV peak gradient 12 mmHG [facility] Work Phone: AV Velocity Ratio 0.60 [facility] Work Phone: JANA (continuity Vmax) 2.28 cm2 [facility] Work Phone: JANA index (continuity Vmax) 1.08 m/s [facility] Work Phone: Avg e' pk romy 0.06 m/s [facility] Work Phone: Avg E/e' ratio 13.44 [facility] Work Phone: Body surface area Derived from formula 2.12 m2 [facility] Work Phone: BP EF 61 % [facility] Work Phone: DI (Vmax) 0.60 [facility] Work Phone: E wave decelartion time 256.00 msec [facility] Work Phone: e' lateral pk romy 0.0673 m/s [facility] Work Phone: e' lateral pk romy 0.07 m/s [facility] Work Phone: e' septal pk romy 0.0546 m/s [facility] Work Phone: e' septal pk romy 0.05 m/s [facility] Work Phone: E/A ratio 0.77 [facility] Work Phone: E/e' lateral ratio 12.04 [facility] Work Phone: E/e' septal ratio 14.84 [facility] Work Phone: FS 33 % 28 - 44 % [facility]: IVS 1.10 cm [facility] Work Phone: LA AREA 2CH 27.90 cm2 [facility] Work Phone: LA area 4CH 28.90 cm2 [facility] Work Phone: LA ESV BP (MOD) 100 mL [facility] Work Phone: LA ESV BP (MOD) index 47 mL/m2 [facility] Work Phone: LA ESV SP 2CH (MOD) 89 mL [facility] Work Phone: LA ESV SP 4CH (MOD) 103 mL [facility] Work Phone: LV EDV BP 98 mL [facility] Work Phone: LV ESV BP 38 mL [facility] Work Phone: LV mass 169.85 g [facility] Work Phone: LV Mass Index 80.1 g/m2 [facility] Work Phone: LV RWT 0.43 [facility] Work Phone: LV stroke volume BP (ml) 60 mL [facility] Work Phone: LV stroke volume index BP 28.30 mL/m2 [facility] Work Phone: LVIDD 4.60 cm [facility] Work Phone: LVIDS 3.10 cm [facility] Work Phone: LVOT area 3.80 cm2 [facility] Work Phone: LVOT diameter 2.20 cm [facility] Work Phone: LVOT peak romy 1.05 m/s [facility] Work Phone: MV pk A romy 1.05 m/s [facility] Work Phone: MV pk E romy 0.81 m/s [facility] Work Phone: [facility]SU ECHO LV BIPLANE SYSTOLIC VOLUME INDEX 17.92 mL/m2 [facility] Work Phone: [facility] ECHO LV BP DIASTOLIC VOLUME INDEX 46.23 mL/m2 [facility]: PV peak gradient 5 mmHg [facility] Work Phone: PV PK ROMY 1.12 m/s [facility] Work Phone: PW 1.00 cm [facility] Work Phone: RA area 4CH (MOD) 26.20 cm2 [facility]: RA vol index 4CH (MOD) 42.92 mL/m2 [facility] Work Phone: Right atrium volume 4 chamber method of disks 91 mL [facility] Work Phone: RV S' 18.40 cm/s [facility] Work Phone: TAPSE 2.06 cm [facility] Work Phone: [facility] Work Phone: Cardiac echo study Procedure on [...] include poor cardiac windows. Imaging system used: Vettery. Indications for study: stroke/tia. [facility] Radiology Study observation (narrative) [facility] ECHOCARDIOGRAMon 07-17-2021 Echocardiography ? Overall image [...] echo image are available for comparison. Facility [facility] Patient Information Patient Name Ignacio Aquino Legal [...] Role Read Date Ellen Gao MD Echo [place] 07/17/2021 Left Heart Measurements LV - Systole [...] include poor cardiac windows. Imaging system used: Vettery. Indications for study: stroke/tia. Exam Details Performed Procedure Technologist Supporting Staff Performing Physician ECHOCARDIOGRAM W/O 3D W/CONTRAST WILLIAMS Pratt RN Appointment Date/Status Modality Department 07/17/2021 Arrived ECHO TESTING, [facility] ECHOCARDIOGRAPHY ROSS Begin Exam End Exam 07/17/2021 [...] result is viewable by the patient in MyChart. ECHOCA (more content not included)... Normal [facility] MR Brain WO contraston 07-16 IMPRESSION: [...] and left thalamus keeping with remote microhemorrhage. [facility] Radiology Study observation (narrative) [facility] MR Brain WO contrastOrdered By: Shanna Aguillon on 07-16-2021 [facility] Work Phone: MRI BRAIN WITHOUT CONTRASTon 07-16-2021 [...] left thalamus keeping with remote microhemorrhage. Normal [facility] PLATELET COUNTon 07-16-2021 Platelet mean volume (Bld) [Entitic vol] 10.5 fL Normal 8.7-12.3 [facility] Comment on above: Performed By: #### H [facility] #### [facility] (DEFAULT) [address] [address] Platelets (Bld) [#/Vol] 150 10*3/uL Normal 146-337 [facility] Comment on above: Performed By: #### H [facility] #### [facility] (DEFAULT) [address] [address] Interpretation and review of laboratory results Normal [facility] Platelet mean volume (Bld) [Entitic vol] 10.5 fL 8.7 - 12.3 fL [facility] Platelets (Bld) [#/Vol] 150 10*3/uL 146 - 337 K/uL [facility] CARDIAC RHYTHM (SCANNED)on 0 07-15-2021 [facility] CBC,PLATELETSon 07-15-2021 Hematocrit (Bld) [Volume fraction] 39.2 % Low 39.6-48.8 [facility] Comment on above: Performed By: #### H [facility] #### [facility] (DEFAULT) [address] [address] Hemoglobin (Bld) [Mass/Vol] 13.4 g/dL Normal 13.4-16.8 [facility] Comment on above: Performed By: #### H [facility] #### [facility] (DEFAULT) [address] [place] [address] 80055 MCV (RBC) [Entitic vol] 89.1 fL Normal 79.0-94.5 [facility] Comment on above: Performed By: #### H EMOGC #### U [facility] (DEFAULT) [address] [place] [address] 10356 Mean Cell Hgb 30.5 pg Normal 26.1-33.3 [facility] Comment on above: Performed By: #### H EMOGC #### [facility] (DEFAULT) [address] [place] [address] 14410 Mean Cell Hgb Conc 34.2 g/dL Normal 31.9-36.5 [facility] Comment on above: Performed By: #### H EMOGC #### Andres [facility] (DEFAULT) [address] [place] [address] 68845 Platelet mean volume (Bld) [Entitic vol] 10.4 fL Normal 8.7-12.3 [facility] Comment on above: Performed By: #### H EMOGC #### [facility] (DEFAULT) [address] [place] [address] 75155 Platelets (Bld) [#/Vol] 133 10*3/uL Low 146-337 [facility] Comment on above: Performed By: #### H EMOGC #### [facility] (DEFAULT) [address] [place] [address] 11343 RBC (Bld) [#/Vol] 4.40 10*6/uL Normal 4.38-5.83 [facility] Comment on above: Performed By: #### H EMOGC #### [facility] (DEFAULT) [address] [place] [address] 87923 RBC Distribution 13.8 % Normal 10.9-14.[address] [facility] Comment on above: Performed By: #### H EMOGC #### [facility] (DEFAULT) [address] [place] [address] 36456 WBC (Bld) [#/Vol] 9.04 10*3/uL Normal 3.73-10.10 [facility] Comment on above: Performed By: #### H [facility] #### [facility] (DEFAULT) [address] [place] [address] Erythrocyte distribution width (RBC) [Ratio] 13.8 % 10.9 - 14.3 % [facility] Hematocrit (Bld) [Volume fraction] 39.2 % Low 39.6 - 48.8 % [facility] Hemoglobin (Bld) [Mass/Vol] 13.4 g/dL 13.4 - 16.8 g/dL [facility] Interpretation and review of laboratory results Abnormal [facility] MCH (RBC) [Entitic mass] 30.5 pg 26.1 - 33.3 pg [facility] MCHC (RBC) [Mass/Vol] 34.2 g/dL 31.9 - 36.5 g/dL [facility] MCV (RBC) [Entitic vol] 89.1 fL 79.0 - 94.5 fL [facility] Platelet mean volume (Bld) [Entitic vol] 10.4 fL 8.7 - 12.3 fL [facility] Platelets (Bld) [#/Vol] 133 10*3/uL Low 146 - 337 K/uL [facility] RBC (Bld) [#/Vol] 4.40 10*6/uL [facility] WBC (Bld) [#/Vol] 9.04 10*3/uL 3.73 - 10.10 K/uL [facility] CHEM 7 (LYTES,BUN,CREA,GLUC) on 07-15-2021 Anion gap [Moles/Vol] 14 mmol/L Normal 7-17 [facility] Comment on above: Performed By: #### A 1CB #### [facility] (DEFAULT) [address] [place] [address] Chloride [Moles/Vol] 106 mmol/L Normal 98-108 [facility] Comment on above: Performed By: #### A 1CB #### U [facility] (DEFAULT) [address] [place] [address] 59839 CO2 [Moles/Vol] 22 mmol/L Normal 21-31 [facility] Comment on above: Performed By: #### A 1CB #### U [facility] (DEFAULT) [address] [place] [address] 86386 Creatinine [Mass/Vol] 0.93 mg/dL Normal 0.70-1.30 [facility] Comment on above: Performed By: #### A 1CB #### U [facility] (DEFAULT) [address] [place] [address] 76023 GFR/1.73 sq M.predicted among non-blacks MDRD (S/P/Bld) [Vol rate/Area] 86 mL/min/{1.73_m2} Normal >=60 [facility] Comment on above: Result Comment: Repo rted eGFR is based on the CKD-EPI 2020 equation using creatinine, age, and sex. Performed By: #### A 1CB #### Andres [facility] (DEFAULT) [address] [place] [address] 73266 Glucose [Mass/Vol] 125 mg/dL High 70-99 [facility] Comment on above: Performed By: #### A 1CB #### [facility] (DEFAULT) [address] [place] [address] 87134 Osmolality [Osmolality] 290 mosm/kg Normal 278-305 [facility] Comment on above: Performed By: #### A 1CB #### U [facility] (DEFAULT) [address] [place] [address] 15751 Potassium [Moles/Vol] 3.5 mmol/L Normal 3.5-5.0 [facility] Comment on above: Performed By: #### A 1CB #### [facility] (DEFAULT) [address] [place] [address] 47336 Sodium [Moles/Vol] 138 mmol/L Normal 135-145 [facility] Comment on above: Performed By: #### A 1CB #### [facility] (DEFAULT) [address] [place] [address] Urea nitrogen [Mass/Vol] 14 mg/dL Normal 7-25 [facility] Comment on above: Performed By: #### A 1CB #### [facility] (DEFAULT) [address] [place] [address] Urea nitrogen/Creatinine [Mass ratio] 15 mg/mg Normal [facility] Comment on above: Performed By: #### A 1CB #### [facility] (DEFAULT) [address] [place] [address] Anion gap [Moles/Vol] 14 mmol/L 7 - 17 mmol/L [facility] Chloride [Moles/Vol] 106 mmol/L 98 - 10 8 mmol/L [facility] CO2 [Moles/Vol] 22 mmol/L 21 - 31 mmol/L [facility] Creatinine [Mass/Vol] 0.93 mg/dL 0.70 - 1.30 mg/dL [facility] GFR/1.73 sq M.predicted CKD-EPI (S/P/Bld) [Vol rate/Area] 86 >=60 mL/min/1.7 3m2 [facility] Comment on above: Reported eGFR is bas ed on the CKD-EPI 2020 equation using creatinine, age, and sex. Glucose [Mass/Vol] 125 mg/dL High 70 - 99 mg/dL [facility] Interpretation and review of laboratory results Abnormal [facility] Osmolality Calc [Osmolality] 290 [facility] Potassium [Moles/Vol] 3.5 mmol/L 3.5 - 5.0 mmol/L [facility] Sodium [Moles/Vol] 138 mmol/L 135 - 145 mmol/L [facility] Urea nitrogen [Mass/Vol] 14 mg/dL 7 - 25 mg/dL [facility] Urea nitrogen/Creatinine [Mass ratio] 15 mg/mg [facility] CBC,PLATELETSon 07-14-2021 Hematocrit (Bld) [Volume fraction] 39.8 % Normal 39.6-48.8 [facility] Comment on above: Performed By: #### H EMOGC #### [facility] (DEFAULT) [address] [place] [address] 366[address] Hemoglobin (Bld) [Mass/Vol] 13.3 g/dL Low 13.4-16.8 [facility] Comment on above: Performed By: #### H EMOGC #### [facility] (DEFAULT) [address] [place] [address] 90297 MCV (RBC) [Entitic vol] 91.1 fL Normal 79.0-94.5 [facility] Comment on above: Performed By: #### H EMO #### [facility] (DEFAULT) [address] [place] [address] 35606 Mean Cell Hgb 30.4 pg Normal 26.1-33.3 [facility] Comment on above: Performed By: #### H EMO #### [facility] (DEFAULT) [address] [address] Mean Cell Hgb Conc 33.4 g/dL Normal 31.9-36.5 [facility] Comment on above: Performed By: #### H EMOSERINA #### Andres [facility] (DEFAULT) [address] [address] Mean Platelet Volume Normal [facility] Comment on above: Result Comment: Not measured Performed By: #### H EMOSERINA #### [facility] (DEFAULT) [address] [place] [address] 26[address] Platelets (Bld) [#/Vol] 133 10*3/uL Low 146-337 [facility] Comment on above: Performed By: #### H EMOGC #### [facility] (DEFAULT) [address] [place] [address] 95311 RBC (Bld) [#/Vol] 4.37 10*6/uL Low 4.38-5.83 [facility] Comment on above: Performed By: #### H EMOGC #### [facility] (DEFAULT) [address] [place] [address] RBC Distribution 14.2 % Normal 10.9-14.[address] [facility] Comment on above: Performed By: #### H [facility] #### [facility] (DEFAULT) [address] [place] [address] WBC (Bld) [#/Vol] 9.52 10*3/uL Normal 3.73-10.10 [facility] Comment on above: Performed By: #### H [facility] #### [facility] (DEFAULT) [address] [place] [address] Erythrocyte distribution width (RBC) [Ratio] 14.2 % 10.9 - 14.3 % [facility] Hematocrit (Bld) [Volume fraction] 39.8 % 39.6 - 48.8 % [facility] Hemoglobin (Bld) [Mass/Vol] 13.3 g/dL Low 13.4 - 16.8 g/dL [facility] Interpretation and review of laboratory results Abnormal [facility] MCH (RBC) [Entitic mass] 30.4 pg 26.1 - 33.3 pg [facility] MCHC (RBC) [Mass/Vol] 33.4 g/dL 31.9 - 36.5 g/dL [facility] MCV (RBC) [Entitic vol] 91.1 fL 79.0 - 94.5 fL [facility] Platelet mean volume (Bld) [Entitic vol] [facility] Comment on above: Not measured Platelets (Bld) [#/Vol] 133 10*3/uL Low 146 - 337 K/uL [facility] RBC (Bld) [#/Vol] 4.37 10*6/uL Low [facility] WBC (Bld) [#/Vol] 9.52 10*3/uL 3.73 - 10.10 K/uL [facility] CHEM 7 (LYTES,BUN,CREA,GLUC) on 07-14-2021 Anion gap [Moles/Vol] 13 mmol/L Normal 7-17 [facility] Comment on above: Performed By: #### C HM7 #### U [facility] (DEFAULT) [address] [place] [address] Chloride [Moles/Vol] 107 mmol/L Normal 98-108 [facility] Comment on above: Performed By: #### C HM7 #### [facility] (DEFAULT) [address] [place] [address] 06305 CO2 [Moles/Vol] 23 mmol/L Normal 21-31 [facility] Comment on above: Performed By: #### C HM7 #### Andres [facility] (DEFAULT) [address] [place] [address] 28776 Creatinine [Mass/Vol] 1.09 mg/dL Normal 0.70-1.30 [facility] Comment on above: Performed By: #### C HM7 #### Andres [facility] (DEFAULT) [address] [place] [address] 25874 GFR/1.73 sq M.predicted among non-blacks MDRD (S/P/Bld) [Vol rate/Area] 71 mL/min/{1.73_m2} Normal >=60 [facility] Comment on above: Result Comment: Repo rted eGFR is based on the CKD-EPI 2020 equation using creatinine, age, and sex. Performed By: #### C HM7 #### [facility] (DEFAULT) [address] [place] [address]82[address] Glucose [Mass/Vol] 110 mg/dL High 70-99 [facility] Comment on above: Performed By: #### C HM7 #### U [facility] (DEFAULT) [address] [address] Osmolality [Osmolality] 292 mosm/kg Normal 278-305 [facility] Comment on above: Performed By: #### C HM7 #### Andres [facility] (DEFAULT) [address] [place] [address]19[address] Potassium [Moles/Vol] 3.7 mmol/L Normal 3.5-5.0 [facility] Comment on above: Performed By: #### C HM7 #### [facility] (DEFAULT) [address] [place] [address] Sodium [Moles/Vol] 139 mmol/L Normal 135-145 [facility] Comment on above: Performed By: #### C HM7 #### [facility] (DEFAULT) [address] [place] [address] Urea nitrogen [Mass/Vol] 15 mg/dL Normal 7-25 [facility] Comment on above: Performed By: #### C HM7 #### [facility] (DEFAULT) [address] [place] [address] Urea nitrogen/Creatinine [Mass ratio] 14 mg/mg Normal [facility] Comment on above: Performed By: #### C HM7 #### [facility] (DEFAULT) [address] [place] [address] Anion gap [Moles/Vol] 13 mmol/L 7 - 17 mmol/L [facility] Chloride [Moles/Vol] 107 mmol/L 98 - 10 8 mmol/L [facility] CO2 [Moles/Vol] 23 mmol/L 21 - 31 mmol/L [facility] Creatinine [Mass/Vol] 1.09 mg/dL 0.70 - 1.30 mg/dL [facility] GFR/1.73 sq M.predicted CKD-EPI (S/P/Bld) [Vol rate/Area] 71 >=60 mL/min/1.7 3m2 [facility] Comment on above: Reported eGFR is bas ed on the CKD-EPI 2020 equation using creatinine, age, and sex. Glucose [Mass/Vol] 110 mg/dL High 70 - 99 mg/dL [facility] Interpretation and review of laboratory results Abnormal [facility] Osmolality Calc [Osmolality] 292 [facility] Potassium [Moles/Vol] 3.7 mmol/L 3.5 - 5.0 mmol/L [facility] Sodium [Moles/Vol] 139 mmol/L 135 - 145 mmol/L [facility] Urea nitrogen [Mass/Vol] 15 mg/dL 7 - 25 mg/dL [facility] Urea nitrogen/Creatinine [Mass ratio] 14 mg/mg [facility] CT Head limitedon 07-14-2021 IMPRESSION: Acute left [...] I have reviewed and approved this report. [facility] CT Head limitedOrdered By: Jessica Cruz on 07-14-2021 [facility] Work Phone: CT STROKE HEAD-STROKE ALERT ONLYon [...] have reviewed and approved this report. Normal [facility] DEVICE EVALUATION (SCANNED)o n 07-14-2021 [facility] No Panel Informationon 07-14 [facility] URINE CULTUREOrdered By: Kia Martínez on 07-14-2021 Bacteria identified Cx Nom (Unsp spec) Growth [facility] Bacteria identified Cx Nom (Unsp spec) GROUP B STREPTOCOCCUS Abnormal [facility] Comment on above: Susceptibilities not routinely performed. Interpretation and review of laboratory results Abnormal [facility] CBC,PLATELETSon 07-13-2021 Hematocrit (Bld) [Volume fraction] 41.5 % Normal 39.6-48.8 [facility] Comment on above: Performed By: #### A 1CB #### [facility] (DEFAULT) [address] [address] Hemoglobin (Bld) [Mass/Vol] 13.6 g/dL Normal 13.4-16.8 [facility] Comment on above: Performed By: #### A 1CB #### [facility] (DEFAULT) [address] [address] MCV (RBC) [Entitic vol] 90.8 fL Normal 79.0-94.5 [facility] Comment on above: Performed By: #### A 1CB #### [facility] (DEFAULT) [address] [address] Mean Cell Hgb 29.8 pg Normal 26.1-33.3 [facility] Comment on above: Performed By: #### A 1CB #### [facility] (DEFAULT) [address] [address] Mean Cell Hgb Conc 32.8 g/dL Normal 31.9-36.5 [facility] Comment on above: Performed By: #### A 1CB #### [facility] (DEFAULT) [address] [address] Platelet mean volume (Bld) [Entitic vol] 10.6 fL Normal 8.7-12.3 [facility] Comment on above: Performed By: #### A 1CB #### [facility] (DEFAULT) [address] [address] Platelets (Bld) [#/Vol] 149 10*3/uL Normal 146-337 [facility] Comment on above: Performed By: #### A 1CB #### [facility] (DEFAULT) [address] [address] RBC (Bld) [#/Vol] 4.57 10*6/uL Normal 4.38-5.83 [facility] Comment on above: Performed By: #### A 1CB #### [facility] (DEFAULT) [address] [address] RBC Distribution 14.2 % Normal 10.9-14.[address] [facility] Comment on above: Performed By: #### A 1CB #### [facility] (DEFAULT) [address] [address] WBC (Bld) [#/Vol] 11.39 10*3/uL High 3.73-10.10 [facility] Comment on above: Performed By: #### A 1CB #### [facility] (DEFAULT) [address] [address] Erythrocyte distribution width (RBC) [Ratio] 14.2 % 10.9 - 14.3 % [facility] Hematocrit (Bld) [Volume fraction] 41.5 % 39.6 - 48.8 % [facility] Hemoglobin (Bld) [Mass/Vol] 13.6 g/dL 13.4 - 16.8 g/dL [facility] Interpretation and review of laboratory results Abnormal [facility] MCH (RBC) [Entitic mass] 29.8 pg 26.1 - 33.3 pg [facility] MCHC (RBC) [Mass/Vol] 32.8 g/dL 31.9 - 36.5 g/dL [facility] MCV (RBC) [Entitic vol] 90.8 fL 79.0 - 94.5 fL [facility] Platelet mean volume (Bld) [Entitic vol] 10.6 fL 8.7 - 12.3 fL [facility] Platelets (Bld) [#/Vol] 149 10*3/uL 146 - 337 K/uL [facility] RBC (Bld) [#/Vol] 4.57 10*6/uL [facility] WBC (Bld) [#/Vol] 11.39 10*3/uL High 3.73 - 10.10 K/uL [facility] CHEM 7 (LYTES,BUN,CREA,GLUC) on 07-13-2021 Anion gap [Moles/Vol] 13 mmol/L Normal 7-17 [facility] Comment on above: Performed By: #### U R #### [facility] (DEFAULT) [address] [place] [address] Chloride [Moles/Vol] 108 mmol/L Normal 98-108 [facility] Comment on above: Performed By: #### U R #### [facility] (DEFAULT) [address] [address] CO2 [Moles/Vol] 23 mmol/L Normal 21-31 [facility] Comment on above: Performed By: #### U R #### [facility] (DEFAULT) [address] [place] [address] Creatinine [Mass/Vol] 1.20 mg/dL Normal 0.70-1.30 [facility] Comment on above: Performed By: #### U R #### U [facility] (DEFAULT) [address] [place] [address] GFR/1.73 sq M.predicted among non-blacks MDRD (S/P/Bld) [Vol rate/Area] 63 mL/min/{1.73_m2} Normal >=60 [facility] Comment on above: Result Comment: Repo rted eGFR is based on the CKD-EPI 2020 equation using creatinine, age, and sex. Performed By: #### U R #### U [facility] (DEFAULT) [address] [place] [address] Glucose [Mass/Vol] 112 mg/dL High 70-99 [facility] Comment on above: Performed By: #### U R #### [facility] (DEFAULT) [address] [place] [address] Osmolality [Osmolality] 295 mosm/kg Normal 278-305 [facility] Comment on above: Performed By: #### U R #### [facility] (DEFAULT) [address] [place] [address] Potassium [Moles/Vol] 3.8 mmol/L Normal 3.5-5.0 [facility] Comment on above: Performed By: #### U R #### [facility] (DEFAULT) [address] [place] [address] Sodium [Moles/Vol] 140 mmol/L Normal 135-145 [facility] Comment on above: Performed By: #### U R #### [facility] (DEFAULT) [address] [address] Urea nitrogen [Mass/Vol] 18 mg/dL Normal 7-25 [facility] Comment on above: Performed By: #### U R #### [facility] (DEFAULT) [address] [place] [address] Urea nitrogen/Creatinine [Mass ratio] 15 mg/mg Normal [facility] Comment on above: Performed By: #### U R #### U [facility] (DEFAULT) [address] [place] [address] Anion gap [Moles/Vol] 13 mmol/L 7 - 17 mmol/L [facility] Chloride [Moles/Vol] 108 mmol/L 98 - 10 8 mmol/L [facility] CO2 [Moles/Vol] 23 mmol/L 21 - 31 mmol/L [facility] Creatinine [Mass/Vol] 1.20 mg/dL 0.70 - 1.30 mg/dL [facility] GFR/1.73 sq M.predicted CKD-EPI (S/P/Bld) [Vol rate/Area] 63 >=60 mL/min/1.7 3m2 [facility] Comment on above: Reported eGFR is bas ed on the CKD-EPI 2020 equation using creatinine, age, and sex. Glucose [Mass/Vol] 112 mg/dL High 70 - 99 mg/dL [facility] Osmolality Calc [Osmolality] 295 [facility] Potassium [Moles/Vol] 3.8 mmol/L 3.5 - 5.0 mmol/L [facility] Sodium [Moles/Vol] 140 mmol/L 135 - 145 mmol/L [facility] Urea nitrogen [Mass/Vol] 18 mg/dL 7 - 25 mg/dL [facility] Urea nitrogen/Creatinine [Mass ratio] 15 mg/mg [facility] CT HEAD WITHOUT CONTRASTon 0 07-13-2021 CT [...] hemorrhagic transformation. No significant midline shift. Normal [facility] CT Head WO contraston 2021 EXAM: [...] of hemorrhagic transformation. No significant midline shift. U [facility] Radiology Study observation (narrative) U [facility] CT Head WO contrastOrdered B y: Paolo Puri on 07-13-2021 [facility] Work Phone: EXTRA MICROon 07-13-2021 [facility] FIBRINOGEN, CLOTTABLEon 05-0 Fibrinogen-Clottable 246 mg/dL Normal 220-410 [facility] Comment on above: Result Comment: Func tional Fibrinogen (activity) levels can be affected by direct thrombin inhibitors such as heparins (>2.0 IU/ml) and dabigatran. Abnormal results should be interpreted with caution. Performed By: #### A 1CB #### [facility] (DEFAULT) [address] [place] [address] Fibrinogen Coag (PPP) [Mass/Vol] 246 mg/dL 220 - 410 mg/dL [facility] Comment on above: Functional Fibrinoge n (activity) levels can be affected by direct thrombin inhibitors such as heparins (>2.0 IU/ml) and dabigatran. Abnormal results should be interpreted with caution. Interpretation and review of laboratory results Normal [facility] HEMOGLOBIN [id number] By: Won Hernández on 07-13-2021 Average glucose Estimated from glycated hemoglobin (Bld) [Mass/Vol] 103 mg/dL [facility] HbA1c (Bld) [Mass fraction] 5.2 % 4.7 - 5.6 % [facility] HEMOGLOBIN A1Con 07-13-2021 Glucose [Mass/Vol] 103 mg/dL Normal [facility] Comment on above: Performed By: #### A 1CB #### [facility] (DEFAULT) [address] [place] [address] HbA1c (Bld) [Mass fraction] 5.2 % Normal 4.7-5.6 [facility] Comment on above: Performed By: #### A 1CB #### [facility] (DEFAULT) [address] [place] [address] LIPID PANEL WITH REFLEX TO M EASURED LDLon 07-13-2021 Calculated LDL Cholesterol 90 mg/dL Normal 0-99 [facility] Comment on above: Result Comment: [<10 0 mg/dL: Optimal] [100-129 mg/dL: Near Optimal] [130-159 mg/dL: Borderline High] [160-189 mg/dL: High] [>189 mg/dL: Very High] Performed By: #### U R #### [facility] (DEFAULT) [address] [place] [address] Cholesterol [Mass/Vol] 139 mg/dL Normal <200 [facility] Comment on above: Result Comment: [<20 0 mg/dL: Desirable] [200-239 mg/dL: Borderline High] [>239 mg/dL: High] Performed By: #### U R #### [facility] (DEFAULT) [address] [place] [address] Cholesterol in HDL [Mass/Vol] 32 mg/dL Low >=40 [facility] Comment on above: Result Comment: [<40 mg/dL: Low (High Risk)] [>59 mg/dL: High (Low Risk)] Performed By: #### U R #### [facility] (DEFAULT) [address] [place] [address] Non HDL Cholesterol 107 mg/dL Normal <130 [facility] Comment on above: Performed By: #### U R #### [facility] (DEFAULT) [address] [place] [address] Total Cholesterol/HDL Ratio 4.3 Normal <4.5 [facility] Comment on above: Performed By: #### U R #### [facility] (DEFAULT) [address] [place] [address] Triglyceride [Mass/Vol] 83 mg/dL Normal <150 [facility] Comment on above: Result Comment: [<15 0 mg/dL: Desirable] [150-199 mg/dL: Borderline] [200-499 mg/dL: High] [>500 mg/dL: Very High] Performed By: #### U R #### [facility] (DEFAULT) [address] [place] [address] Cholesterol [Mass/Vol] 139 mg/dL <200 [facility] Comment on above: [<200 mg/dL: Desirab le] [200-239 mg/dL: Borderline High] [>239 mg/dL: High] Cholesterol in HDL [Mass/Vol] 32 mg/dL Low >=40 [facility] Comment on above: [<40 mg/dL: Low (Hig h Risk)] [>59 mg/dL: High (Low Risk)] Cholesterol in HDL [Mass/Vol] 107 mg/dL <130 [facility] Cholesterol in LDL [Mass/Vol] 90 mg/dL 0 - 99 mg/dL [facility] Comment on above: [<100 mg/dL: Optimal ] [100-129 mg/dL: Near Optimal] [130-159 mg/dL: Borderline High] [160-189 mg/dL: High] [>189 mg/dL: Very High] Cholesterol.total/Edita sterol in HDL [Mass ratio] 4.3 {ratio} <4.5 [facility] Triglyceride [Mass/Vol] 83 mg/dL <150 [facility] Comment on above: [<150 mg/dL: Desirab le] [150-199 mg/dL: Borderline] [200-499 mg/dL: High] [>500 mg/dL: Very High] LT BLUE TOP TUBEon 2 [facility] MAGNESIUMon 07-13-2021 Magnesium [Mass/Vol] 2.2 mg/dL Normal 1.6-2.6 [facility] Comment on above: Performed By: #### U R #### [facility] (DEFAULT) [address] [place] [address] Interpretation and review of laboratory results Normal [facility] Magnesium [Mass/Vol] 2.2 mg/dL 1.6 - 2 .6 mg/dL [facility] No Panel Informationon 07-13 Interpretation and review of laboratory results Abnormal [facility] Absolute lymphocyte counton 07-12-2021 Lymphocytes Auto (Unsp spec) [#/Vol] 1.19 10*3/uL 0.83-4.51 [facility] Work Phone: Basophil percentageon 2021 Basophils/100 WBC (Bld) 0.5 % 0-1 [facility] Work Phone: Chloride [Moles/Vol] 110 mmol/L 98-107 [facility] Work Phone: [phone] Eosinophils/100 WBC (Bld) 2.9 % 0-5 [facility] Work Phone: Glucose [Mass/Vol] 119 mg/dL 74-106 [facility] Work Phone: Comment on above: Fasting Glucose resu lt from 100 to 125 mg/dL suggests IMPAIRED HOMEOSTASIS per A.D.A. criteria. Neutrophils (Bld) [#/Vol] 4.3 10*3/uL 2.0-7.7 [facility] Work Phone: Neutrophils/100 WBC (Bld) 68.6 % 47-70 [facility] Work Phone: [phone] Potassium [Moles/Vol] 3.6 mmol/L 3.5-5.1 [facility] Work Phone: Sodium [Moles/Vol] 139 mmol/L 136-145 [facility] Work Phone: WBC (Bld) [#/Vol] 6.2 10*3/uL 4.4-11.0 [facility] Work Phone: Blood erythrocytes count (nu mber/volume)on 07-12-2021 RBC (Bld) [#/Vol] 4.22 10*6/uL 4.6-6.2 [facility] Work Phone: Blood hemoglobin measurement (mass/volume)on 07-12-2021 Hemoglobin (Bld) [Mass/Vol] 12.8 g/dL 13.0-16.5 [facility] Work Phone: [phone] Blood lymphocytes/100 leukoc yteson 07-12-2021 Lymphocytes/100 WBC (Bld) 19.2 % 19-41 [facility] Work Phone: [phone] Blood monocytes/100 leukocyt eson 07-12-2021 Monocytes/100 WBC (Bld) 8.2 % 0-10 [facility] Work Phone: Blood platelet mean volumeon 07-12-2021 Platelet mean volume (Bld) [Entitic vol] 10.7 fL 6.2-12.0 [facility] Work Phone: CBC AND ELECTRONIC DIFFon Basophils (Bld) [#/Vol] 10*3/uL Normal 0.00-0.09 [facility] Comment on above: Performed By: #### H EMOGC #### [facility] (DEFAULT) [address] [address] Basophils/100 WBC (Bld) 0.3 % Normal [facility] Comment on above: Performed By: #### H EMOGC #### [facility] (DEFAULT) [address] [address] DIFF STATUS Electronic Differential Normal [facility] Comment on above: Performed By: #### H EMOGC #### [facility] (DEFAULT) [address] [address] Eosinophils (Bld) [#/Vol] 0.09 10*3/uL Normal 0.00-0.48 [facility] Comment on above: Performed By: #### H EMOGC #### [facility] (DEFAULT) [address] [address] Eosinophils/100 WBC (Bld) 0.9 % Normal [facility] Comment on above: Performed By: #### H EMOGC #### [facility] (DEFAULT) [address] [address] Hematocrit (Bld) [Volume fraction] 43.7 % Normal 39.6-48.8 [facility] Comment on above: Performed By: #### H EMOGC #### [facility] (DEFAULT) [address] [address] Hemoglobin (Bld) [Mass/Vol] 14.7 g/dL Normal 13.4-16.8 [facility] Comment on above: Performed By: #### H EMOGC #### [facility] (DEFAULT) [address] [address] Immature Grans % 0.5 % Normal [facility] Comment on above: Performed By: #### H EMOGC #### [facility] (DEFAULT) [address] [address] Immature Grans Absolute 0.05 K/uL Normal <=0.08 [facility] Comment on above: Performed By: #### H EMOGC #### [facility] (DEFAULT) [address] [address] Lymphocytes (Bld) [#/Vol] 0.99 10*3/uL Normal 0.83-3.57 [facility] Comment on above: Performed By: #### H EMO #### [facility] (DEFAULT) [address] [address] Lymphocytes/100 WBC (Bld) 9.8 % Normal [facility] Comment on above: Performed By: #### H EMO #### [facility] (DEFAULT) [address] [address] MCV (RBC) [Entitic vol] 89.4 fL Normal 79.0-94.5 [facility] Comment on above: Performed By: #### H EMO #### [facility] (DEFAULT) [address] [address] Mean Cell Hgb 30.1 pg Normal 26.1-33.3 [facility] Comment on above: Performed By: #### H EMOGC #### [facility] (DEFAULT) [address] [address] Mean Cell Hgb Conc 33.6 g/dL Normal 31.9-36.5 [facility] Comment on above: Performed By: #### H EMOGC #### [facility] (DEFAULT) [address] [address] Monocytes (Bld) [#/Vol] 0.53 10*3/uL Normal 0.24-0.93 [facility] Comment on above: Performed By: #### H EMOGC #### [facility] (DEFAULT) [address] [place] [address] Monocytes/100 WBC (Bld) 5.2 % Normal [facility] Comment on above: Performed By: #### H EMOGC #### U [facility] (DEFAULT) [address] [place] [address] Nucleated RBC 0.0 /100 WBC Normal <=0.2 [facility] Comment on above: Performed By: #### H EMOGC #### U [facility] (DEFAULT) [address] [place] [address] Platelet mean volume (Bld) [Entitic vol] 11.1 fL Normal 8.7-12.3 [facility] Comment on above: Performed By: #### H EMOGC #### [facility] (DEFAULT) [address] [place] [address] Platelets (Bld) [#/Vol] 130 10*3/uL Low 146-337 [facility] Comment on above: Performed By: #### H EMOGC #### [facility] (DEFAULT) [address] [place] [address] RBC (Bld) [#/Vol] 4.89 10*6/uL Normal 4.38-5.83 [facility] Comment on above: Performed By: #### H EMOGC #### [facility] (DEFAULT) [address] [place] [address] RBC Distribution 14.0 % Normal 10.9-14.[address] [facility] Comment on above: Performed By: #### H EMOGC #### [facility] (DEFAULT) [address] [place] [address] Segs + Bands Auto 83.3 % Normal [facility] Comment on above: Performed By: #### H EMOGC #### [facility] (DEFAULT) [address] [place] [address] Segs + Bands,Absolute Auto 8.41 K/uL High 1.57-6.19 [facility] Comment on above: Performed By: #### H [facility] #### [facility] (DEFAULT) [address] [place] [address] WBC (Bld) [#/Vol] 10.10 10*3/uL Normal 3.73-10.10 [facility] Comment on above: Performed By: #### H [facility] #### [facility] (DEFAULT) [address] [place] [address] Basophils (Bld) [#/Vol] 10*3/uL 0.00 - 0.09 K/uL [facility] Basophils/100 WBC (Bld) 0.3 % [facility] Differential cell count method Nom (Bld) Electronic Differential [facility] Eosinophils (Bld) [#/Vol] 0.09 10*3/uL 0.00 - 0.48 K/uL [facility] Eosinophils/100 WBC (Bld) 0.9 % [facility] Erythrocyte distribution width (RBC) [Ratio] 14.0 % 10.9 - 14.3 % [facility] Hematocrit (Bld) [Volume fraction] 43.7 % 39.6 - 48.8 % [facility] Hemoglobin (Bld) [Mass/Vol] 14.7 g/dL 13.4 - 16.8 g/dL [facility] Immature granulocytes (Bld) [#/Vol] 0.05 10*3/uL <=0.08 [facility] Immature granulocytes/100 WBC (Bld) 0.5 % [facility] Interpretation and review of laboratory results Abnormal [facility] Lymphocytes (Bld) [#/Vol] 0.99 10*3/uL 0.83 - 3.57 K/uL [facility] Lymphocytes/100 WBC (Bld) 9.8 % [facility] MCH (RBC) [Entitic mass] 30.1 pg 26.1 - 33.3 pg [facility] MCHC (RBC) [Mass/Vol] 33.6 g/dL 31.9 - 36.5 g/dL [facility] MCV (RBC) [Entitic vol] 89.4 fL 79.0 - 94.5 fL [facility] Monocytes (Bld) [#/Vol] 0.53 10*3/uL 0.24 - 0.93 K/uL [facility] Monocytes/100 WBC (Bld) 5.2 % [facility] Neutrophils (Bld) [#/Vol] 8.41 10*3/uL High 1.57 - 6.19 K/uL [facility] Nucleated RBC/100 WBC (Bld) [Ratio] 0.0 % <=0.2 /100 WBC [facility] Platelet mean volume (Bld) [Entitic vol] 11.1 fL 8.7 - 12.3 fL [facility] Platelets (Bld) [#/Vol] 130 10*3/uL Low 146 - 337 K/uL [facility] RBC (Bld) [#/Vol] 4.89 10*6/uL [facility] Segmented neutrophils/100 WBC (Bld) 83.3 % [facility] WBC (Bld) [#/Vol] 10.10 10*3/uL 3.73 - 10.10 K/uL [facility] CHM 7 - EDon 07-12-2021 Anion gap [Moles/Vol] 14 mmol/L Normal 7-17 [facility] Comment on above: Performed By: #### H [facility] #### [facility] (DEFAULT) [address] [place] [address] Chloride [Moles/Vol] 107 mmol/L Normal 98-108 [facility] Comment on above: Performed By: #### H [facility] #### [facility] (DEFAULT) [address] [place] [address] CO2 [Moles/Vol] 20 mmol/L Low 21-31 [facility] Comment on above: Performed By: #### H EMOGC #### [facility] (DEFAULT) [address] [place] [address] Creatinine [Mass/Vol] 1.16 mg/dL Normal 0.70-1.30 [facility] Comment on above: Performed By: #### H EMOGC #### U [facility] (DEFAULT) [address] [place] [address] GFR/1.73 sq M.predicted among non-blacks MDRD (S/P/Bld) [Vol rate/Area] 66 mL/min/{1.73_m2} Normal >=60 [facility] Comment on above: Result Comment: Repo rted eGFR is based on the CKD-EPI 2020 equation using creatinine, age, and sex. Performed By: #### H EMO #### [facility] (DEFAULT) [address] [place] [address] Glucose [Mass/Vol] 105 mg/dL High 70-99 [facility] Comment on above: Performed By: #### H EMOGC #### U [facility] (DEFAULT) [address] [place] [address] Osmolality [Osmolality] 290 mosm/kg Normal 278-305 [facility] Comment on above: Performed By: #### H EMOGC #### [facility] (DEFAULT) [address] [place] [address] Potassium [Moles/Vol] 4.6 mmol/L Normal 3.5-5.0 [facility] Comment on above: Result Comment: Mode rate Hemolysis Performed By: #### H EMOGC #### [facility] (DEFAULT) [address] [place] [address] Sodium [Moles/Vol] 136 mmol/L Normal 135-145 [facility] Comment on above: Performed By: #### H EMOGC #### [facility] (DEFAULT) [address] [place] [address] Urea nitrogen [Mass/Vol] 21 mg/dL Normal 7-25 [facility] Comment on above: Performed By: #### H [facility] #### [facility] (DEFAULT) [address] [place] [address] Urea nitrogen/Creatinine [Mass ratio] 18 mg/mg Normal [facility] Comment on above: Performed By: #### H [facility] #### [facility] (DEFAULT) [address] [place] [address] Anion gap [Moles/Vol] 14 mmol/L 7 - 17 mmol/L [facility] Chloride [Moles/Vol] 107 mmol/L 98 - 10 8 mmol/L [facility] CO2 [Moles/Vol] 20 mmol/L Low 21 - 31 mmol/L [facility] Creatinine [Mass/Vol] 1.16 mg/dL 0.70 - 1.30 mg/dL [facility] GFR/1.73 sq M.predicted CKD-EPI (S/P/Bld) [Vol rate/Area] 66 >=60 mL/min/1.7 3m2 [facility] Comment on above: Reported eGFR is bas ed on the CKD-EPI 2020 equation using creatinine, age, and sex. Glucose [Mass/Vol] 105 mg/dL High 70 - 99 mg/dL [facility] Osmolality Calc [Osmolality] 290 [facility] Potassium [Moles/Vol] 4.6 mmol/L 3.5 - 5.0 mmol/L [facility] Comment on above: Moderate Hemolysis Sodium [Moles/Vol] 136 mmol/L 135 - 145 mmol/L [facility] Urea nitrogen [Mass/Vol] 21 mg/dL 7 - 25 mg/dL [facility] Urea nitrogen/Creatinine [Mass ratio] 18 mg/mg [facility] CT ANGIO BRAIN/NECKon 2021 CT ANGIO BRAIN/NECK [...] are unremarkable. No major anatomical variations at [place]. Anterior, middle and posterior cerebral [...] I have reviewed and approved this report. [facility] IMPRESSION: No proximal intracranial artery occlusion identified. [...] are unremarkable. No major anatomical variations at [place]. Anterior, middle and posterior cerebral [...] are unremarkable. No major anatomical variations at [place]. Anterior, middle and posterior cerebral [...] I have reviewed and approved this report. [facility] Radiology Study observation (narrative) [facility] CT Head limitedon 07-12-2021 Radiology Study observation (narrative) [facility] Determination of erythrocyte mean corpuscular volume (MCV)on 07-12-2021 MCV (RBC) [Entitic vol] 90.5 fL 80-94 [facility] Work Phone: FIBRINOGEN, CLOTTABLEon 06-15 Fibrinogen-Clottable 225 mg/dL Normal 220-410 [facility] Comment on above: Result Comment: Func tional Fibrinogen (activity) levels can be affected by direct thrombin inhibitors such as heparins (>2.0 IU/ml) and dabigatran. Abnormal results should be interpreted with caution. Performed By: #### L [id number], [id number] #### [facility] (DEFAULT) [address] [place] [address] Fibrinogen Coag (PPP) [Mass/Vol] 225 mg/dL 220 - 410 mg/dL [facility] Comment on above: Functional Fibrinoge n (activity) levels can be affected by direct thrombin inhibitors such as heparins (>2.0 IU/ml) and dabigatran. Abnormal results should be interpreted with caution. Interpretation and review of laboratory results Normal [facility] GLUCOSE POCon 07-12-2021 Glucose [Mass/Vol] 93 mg/dL 70 - 99 mg/dL [facility] Comment on above: Notified RNread back Poc Sample Type VENO [facility] Test performed at ad dress of the patient encounter. [facility] HEPATIC FUNCTION PANELon Albumin [Mass/Vol] 4.5 g/dL Normal 3.5-5.0 [facility] Comment on above: Performed By: #### H EMOGC #### [facility] (DEFAULT) [address] [place] [address] ALP [Catalytic activity/Vol] 52 U/L Normal 32-126 [facility] Comment on above: Performed By: #### H EMOGC #### [facility] (DEFAULT) [address] [place] [address] ALT [Catalytic activity/Vol] 34 U/L Normal 10-52 [facility] Comment on above: Result Comment: Mode rate Hemolysis Performed By: #### H EMOGC #### [facility] [facility] (DEFAULT) [address] [place] [address] AST [Catalytic activity/Vol] 50 U/L High 10-39 [facility] Comment on above: Result Comment: Mode rate Hemolysis Performed By: #### H EMOGC #### [facility] (DEFAULT) [address] [place] [address]952 Bilirubin [Mass/Vol] 0.7 mg/dL Normal <1.5 [facility] Comment on above: Result Comment: Mode rate Hemolysis Performed By: #### H EMOGC #### [facility] (DEFAULT) [address] [place] [address]285 Bilirubin.indirect [Mass/Vol] 0.1 mg/dL Normal <0.3 [facility] Comment on above: Result Comment: Mode rate Hemolysis Performed By: #### H EMOGC #### [facility] (DEFAULT) [address] [place] [address]12 Protein [Mass/Vol] 7.7 g/dL Normal 6.4-8.3 [facility] Comment on above: Performed By: #### H EMOGC #### [facility] (DEFAULT) [address] [place] [address] 91817 Albumin [Mass/Vol] 4.5 g/dL 3.5 - 5.0 g/dL [facility] ALP [Catalytic activity/Vol] 52 U/L 32 - 126 U/L [facility] ALT [Catalytic activity/Vol] 34 U/L 10 - 52 U/L [facility] Comment on above: Moderate Hemolysis AST [Catalytic activity/Vol] 50 U/L High 10 - 39 U/L [facility] Comment on above: Moderate Hemolysis Bilirubin [Mass/Vol] 0.7 mg/dL <1.5 [facility] Comment on above: Moderate Hemolysis Bilirubin.direct [Mass/Vol] 0.1 mg/dL <0.3 [facility] Comment on above: Moderate Hemolysis Protein [Mass/Vol] 7.7 g/dL 6.4 - 8.3 g/dL [facility] HIGH SENSITIVITY TROPONIN I - SINGLE ORDERon 07-12-2021 hs-Troponin I 8 ng/L Normal <53 [facility] Comment on above: Order Comment: Acute Coronary Syndrome (ACS): Initial Evaluation and Management:[email or web address] Performed By: #### H [facility] #### [facility] (DEFAULT) [address] [place] [address] Interpretation and review of laboratory results Normal [facility] Troponin I.cardiac DL <= 0.01 ng/mL [Mass/Vol] 8 ng/L <53 [facility] Hematocrit Auto (Bld) [Volum e fraction]on 07-12-2021 Hematocrit (Bld) [Volume fraction] 38.2 % 40-54 [facility] Work Phone: INR in Blood by Coagulation assayon 07-12-2021 INR Coag (Bld) [Relative time] 1.1 {INR} [facility] Work Phone: Laboratory - Chemistry and C hemistry - challengeon 07-12-2021 CO2 [Moles/Vol] 24.0 mmol/L 21.0-32.0 [facility] Work Phone: Urea nitrogen/Creatinine [Mass ratio] 15.7 mg/mg 10-20 [facility] Work Phone: Laboratory - Coagulationon 0 07-12-2021 aPTT Coag (Bld) [Time] 28.8 s 24.1-36.2 [facility] Work Phone: PT Coag (PPP) [Time] 14.3 s 11.7-14.9 [facility] Work Phone: Laboratory - Hematology and Cell countson 07-12-2021 Erythrocyte distribution width (RBC) [Entitic vol] 46.7 fL 35.1-43.9 [facility] Work Phone: Erythrocyte distribution width (RBC) [Ratio] 14.2 % 11.6-14.6 [facility] Work Phone: Immature granulocytes/100 WBC (Bld) 0.600 % 0.0-0.9 [facility] Work Phone: Comment on above: IG% - Immature Granu locytes (promyelocytes, myelocytes and metamyelocytes) > 1% indicates that a LEFT SHIFT is Present. MCH (RBC) [Entitic mass] 30.3 pg 27.0-32.0 [facility] Work Phone: Nucleated RBC/100 WBC (Bld) [Ratio] 0 % 0-5 [facility] Work Phone: MCHC Auto (RBC) [Mass/Vol]on 07-12-2021 MCHC (RBC) [Mass/Vol] 33.5 g/dL 32-36 [facility] Work Phone: No Panel Informationon 07-12 [facility] Interpretation and review of laboratory results Abnormal [facility] Estimated Creatinine Clearance Calc 59.61 ml/min [facility] Work Phone: Estimated GFR (MDRD) Amer 75 mL/min >60 [facility] Work Phone: Comment on above: GFR Calc Estimated GFR (MDRD) Non-Af Amer 62 mL/min >60 [facility] Work Phone: Comment on above: Non- GFR Calc Troponin I High Sensitivity 9 pg/mL 3.0-78.0 [facility] Work Phone: Comment on above: Please Note: New Padmini t Units and Gender Specific Reference Ranges. For more information see Policy Stat Procedure [place] High Sensitivity Troponin (TNIH) and attachments. PTINR-STROKEon 07-12-2021 INR Coag (PPP) [Relative time] 1.2 {INR} High 0.9-1.1 [facility] Comment on above: Performed By: #### L [id number], [id number] #### [facility] (DEFAULT) [address] [address] PT Coag (PPP) [Time] 14.7 s High 11.9-14.2 [facility] Comment on above: Performed By: #### L [id number], [id number] #### [facility] (DEFAULT) [address] [place] [address] INR Coag (Bld) [Relative time] 1.2 {INR} High [facility] Interpretation and review of laboratory results Abnormal [facility] PT Coag (PPP) [Time] 14.7 s High [facility] PTTon 07-12-2021 aPTT Coag (Bld) [Time] 27.7 s Normal 24.0-34.3 [facility] Comment on above: Performed By: #### L [id number], [id number] #### [facility] (DEFAULT) [address] [address] aPTT Coag (PPP) [Time] 27.7 s [facility] Interpretation and review of laboratory results Normal [facility] Platelets bldon 07-12-2021 Platelets (Bld) [#/Vol] 157 10*3/uL 150-450 [facility] Work Phone: Serum or plasma calcium nicole urement (mass/volume)on 07-12-2021 Calcium [Mass/Vol] 8.3 mg/dL 8.5-10.1 [facility] Work Phone: Serum or plasma creatinine m easurement (mass/volume)on 07-12-2021 Creatinine [Mass/Vol] 1.21 mg/dL 0.70-1.30 [facility] Work Phone: Comment on above: The validity of the calculated GFR & GFRAA in patients over 70 years has not been determined. Clinical correlation is essential. Serum or plasma urea nitroge n measurement (mass/volume)on 07-12-2021 Urea nitrogen [Mass/Vol] 19 mg/dL 7-18 [facility] Work Phone: TOXICOLOGY SCREEN URINE - UD RGOrdered By: Karo Christensen on 07-12-2021 Barbiturates Ql (U) Negative Cutoff: 200 ng/mL [facility] Cannabinoids Screen Ql (U) Negative Cutoff: 50 ng/mL [facility] Drugs identified Screen Nom (U) Gabapentin Diphenhydramine Citalopram Abnormal Negative [facility] Interpretation and review of laboratory results Abnormal [facility] For Medical Purposes Only. Nonforensic screen results are considered presumptive and no confirmatory testing will follow. Drugs are detected by immunoassay or Liquid Chromatography Mass Spectrometry (LC-MS/MS). The LC-MS/MS test was developed and its performance characteristics determined by the Toxicology Laboratory at [facility]. It has not been cleared or [...] Tramadol(50), Trazodone(25), Triazolam(100), Trifluoperazine (100),Venlafaxine(50), Verapamil(100), Zolpidem(200) [facility] TOXICOLOGY SCREEN URINE - UD RGon 07-12-2021 Barbiturates Negative Normal Cutoff: 200 ng/mL [facility] Comment on above: Order Comment: For M edical Purposes Only. Nonforensic screen results are considered presumptive and no confirmatory testing will follow. Drugs are detected by immunoassay or Liquid Chromatography Mass Spectrometry (LC-MS/MS). The LC-MS/MS test was developed and its performance characteristics determined by the Toxicology Laboratory at [facility]. It has not been cleared or [...] (200), Alphahydrozyalprazolam(200), Alprazolam(50), Amitriptyline(50), Amphetamine(250), Atenolol(500),Benzoylecgonine(50), Buprenorphine(100), Bupropion(25),Caffeine(48024),Chlordiazepoxide(50), Chlorpheniramine(100), Chlorpromazine(50), Citalopram(100), Clonazepam(200), Cocaine(25),Codeine(200), Cotinine(500),Desipramine(50), Desmethyldoxepin(100), Dextromethorphan(100), Diazepam(100), Dihydrocodeine(100), Diltazem(50), Diphenhydramine(100),Doxepin(100),EDDP/methadone(100), Ephedrine/Pseudoephedrine(100),Fentanyl(25),Flunitrazepam(100) ,Fluoxetine(200), Flurazepam(50),Gabapentin(1500), Haloperidol(25), Hydrocodone(100), Hydromorphone(200), Imipramine(50), Ketamine(25), Lidocaine(25),Lorazepam(100), Lysergide(LSD)(25),Maprotiline(200), MDA(250), MDMA(250), Meperidine(50),Midazolam (200),Methadone(50), Methamphetamine(500), Methylphenidate(50), Metoprolol(50),Morphine(200),Nalbuphine(50), Naloxone(200), Norbuprenorphine(300), Nordiazepam(100), Norfentanyl(50),Noroxycodone (100), Norpropoxyphene(50), Nortriptyline(50), Olanzapine(200),Oxazepam(200),Oxycodone(100),Oxymorphone(200), Phencyclidine(PCP)(25), Pheniramine(25), Pregabalin(1500), Promethazine(50), Propoxyphene(100), Propanolol(50), Quetiapine(25), Quinidine(500), Ranitidine(500), Risperidone(100), Sertraline(50),Temazepam(100), Thioridazine(100), Tramadol(50), Trazodone(25), Triazolam(100), Trifluoperazine (100),Venlafaxine(50), Verapamil(100), Zolpidem(200) Performed By: #### L [id number], [id number] #### [facility] (DEFAULT) [address] [place] [address] Cannabinoids Screen Ql (U) Negative Normal Cutoff: 50 ng/mL [facility] Comment on above: Order Comment: For M edical Purposes Only. Nonforensic screen results are considered presumptive and no confirmatory testing will follow. Drugs are detected by immunoassay or Liquid Chromatography Mass Spectrometry (LC-MS/MS). The LC-MS/MS test was developed and its performance characteristics determined by the Toxicology Laboratory at [facility]. It has not been cleared or [...] (200), Alphahydrozyalprazolam(200), Alprazolam(50), Amitriptyline(50), Amphetamine(250), Atenolol(500),Benzoylecgonine(50), Buprenorphine(100), Bupropion(25),Caffeine(60301),Chlordiazepoxide(50), Chlorpheniramine(100), Chlorpromazine(50), Citalopram(100), Clonazepam(200), Cocaine(25),Codeine(200), Cotinine(500),Desipramine(50), Desmethyldoxepin(100), Dextromethorphan(100), Diazepam(100), Dihydrocodeine(100), Diltazem(50), Diphenhydramine(100),Doxepin(100),EDDP/methadone(100), Ephedrine/Pseudoephedrine(100),Fentanyl(25),Flunitrazepam(100) ,Fluoxetine(200), Flurazepam(50),Gabapentin(1500), Haloperidol(25), Hydrocodone(100), Hydromorphone(200), Imipramine(50), Ketamine(25), Lidocaine(25),Lorazepam(100), Lysergide(LSD)(25),Maprotiline(200), MDA(250), MDMA(250), Meperidine(50),Midazolam (200),Methadone(50), Methamphetamine(500), Methylphenidate(50), Metoprolol(50),Morphine(200),Nalbuphine(50), Naloxone(200), Norbuprenorphine(300), Nordiazepam(100), Norfentanyl(50),Noroxycodone (100), Norpropoxyphene(50), Nortriptyline(50), Olanzapine(200),Oxazepam(200),Oxycodone(100),Oxymorphone(200), Phencyclidine(PCP)(25), Pheniramine(25), Pregabalin(1500), Promethazine(50), Propoxyphene(100), Propanolol(50), Quetiapine(25), Quinidine(500), Ranitidine(500), Risperidone(100), Sertraline(50),Temazepam(100), Thioridazine(100), Tramadol(50), Trazodone(25), Triazolam(100), Trifluoperazine (100),Venlafaxine(50), Verapamil(100), Zolpidem(200) Performed By: #### L [id number], [id number] #### [facility] (DEFAULT) [address] [place] [address] Drugs Detected Urine Tox Abnormal Negative [facility] Comment on above: Order Comment: For M edical Purposes Only. Nonforensic screen results are considered presumptive and no confirmatory testing will follow. Drugs are detected by immunoassay or Liquid Chromatography Mass Spectrometry (LC-MS/MS). The LC-MS/MS test was developed and its performance characteristics determined by the Toxicology Laboratory at [facility]. It has not been cleared or [...] (200), Alphahydrozyalprazolam(200), Alprazolam(50), Amitriptyline(50), Amphetamine(250), Atenolol(500),Benzoylecgonine(50), Buprenorphine(100), Bupropion(25),Caffeine(83253),Chlordiazepoxide(50), Chlorpheniramine(100), Chlorpromazine(50), Citalopram(100), Clonazepam(200), Cocaine(25),Codeine(200), Cotinine(500),Desipramine(50), Desmethyldoxepin(100), [...] pentin Diphenhydramine Citalopram Performed By: #### L [id number], [id number] #### [facility] (DEFAULT) [address] [place] [address] Thin prep Papanicolaou smear with manual screeningon 07-12-2021 Thin prep Papanicolaou smear with manual screening 07-27 [facility] Work Phone: URINE CULTUREon 07-12-2021 Bacteria identified Cx Nom (U) Normal [facility] Comment on above: Order Comment: For [...] performed. Performed By: #### U R #### [facility] (DEFAULT) [address] [address] URINE DIPSTICK; REFLEX MICRO SCOPY; REFLEX CULTURE PERFORMABLEon 07-12-2021 Appearance (U) Cloudy Abnormal Clear [facility] Color (U) Yellow Yellow [facility] Glucose Test strip (U) [Mass/Vol] Negative Negative [facility] Interpretation and review of laboratory results Abnormal [facility] Ketones (U) [Mass/Vol] Negative Negative [facility] Leukocyte esterase Test strip Ql (U) Moderate Abnormal Negative [facility] Nitrite Ql (U) Negative [facility] pH (U) 6.0 [pH] 5.0 - 7.0 [facility] Protein (U) [Mass/Vol] 30 mg/dL Abnormal Negative [facility] RBC (U) [#/Vol] Large Abnormal Negative [facility] Specific gravity (U) [Rel density] 1.015 [facility] Urobilinogen (U) [Mass/Vol] 1.0 E.U./dL 0.2 E.U/dL, 1.0 E.U/dL [facility] Appearance (U) Cloudy Abnormal Clear [facility] Comment on above: Performed By: #### L [id number], [id number] #### [facility] (DEFAULT) [address] [address] Blood Urine Large Abnormal Negative [facility] Comment on above: Performed By: #### L [id number], [id number] #### [facility] (DEFAULT) [address] [address] Color (U) Yellow Normal Yellow [facility] Comment on above: Performed By: #### L [id number], [id number] #### [facility] (DEFAULT) [address] [address] Glucose Ql (U) Negative Normal Negative [facility] Comment on above: Performed By: #### L [id number], [id number] #### [facility] (DEFAULT) [address] [address] Ketones Ql (U) Negative Normal Negative [facility] Comment on above: Performed By: #### L [id number], [id number] #### [facility] (DEFAULT) [address] [address] Leukocyte esterase Test strip Ql (U) Moderate Abnormal Negative [facility] Comment on above: Performed By: #### L [id number], [id number] #### [facility] (DEFAULT) [address] [place] [address] Nitrites Urine Negative Normal Negative [facility] Comment on above: Performed By: #### L [id number], [id number] #### [facility] (DEFAULT) [address] [place] [address] pH (U) 6.0 [pH] Normal 5.0-7.0 [facility] Comment on above: Performed By: #### L [id number], [id number] #### [facility] (DEFAULT) [address] [place] [address] Protein Urine 30 mg/dL Abnormal Negative [facility] Comment on above: Performed By: #### L [id number], [id number] #### [facility] (DEFAULT) [address] [address] Specific [place] Urine 1.015 Normal 1.001 -1.03 5 [facility] Comment on above: Performed By: #### L [id number], [id number] #### [facility] (DEFAULT) [address] [place] [address] Urobilinogen Urine 1.0 E.U./dL Normal 0.2 E.U/dL, 1.0 E.U/dL [facility] Comment on above: Performed By: #### L [id number], [id number] #### [facility] (DEFAULT) [address] [place] [address] URINE MICROSCOPIC WITH REFLE X TO CULTUREOrdered By: Kalyn Metcalf on 07-12-2021 Bacteria LM Ql (Urine sed) TRACE Abnormal ABSENT [facility] Epithelial cells.squamous LM Ql (Urine sed) 1/hpf = 1+ 1/hpf = 1+, 2-5/hpf = 2+, 0/hpf = 0+, ABSENT [facility] Interpretation and review of laboratory results Abnormal [facility] RBC LM.HPF (Urine sed) [#/Area] /[HPF] Abnormal 0 - 2 /HPF [facility] WBC LM.HPF (Urine sed) [#/Area] /[HPF] Abnormal 0 - 5 /HPF [facility] URINE MICROSCOPIC WITH REFLE X TO CULTUREon 07-12-2021 Bacteria TRACE Abnormal ABSENT [facility] Comment on above: Performed By: #### Say SEGOVIA [id number] #### [facility] (DEFAULT) [address] [place] [address] RBC LM.HPF (Urine sed) [#/Area] /[HPF] Abnormal 0-2 [facility] Comment on above: Performed By: #### Say SEGOVIA, [id number] #### [facility] (DEFAULT) [address] [place] [address] Squamous/Epithelial Cells 1/hpf = 1+ Normal 1/hpf = 1+, 2-5/hpf = 2+, 0/hpf = 0+, ABSENT [facility] Comment on above: Performed By: #### Say SEGOVIA [id number] #### [facility] (DEFAULT) [address] [place] [address] WBC LM.HPF (Urine sed) [#/Area] /[HPF] Abnormal 0-5 [facility] Comment on above: Performed By: #### Say SEGOVIA [id number] #### [facility] (DEFAULT) [address] [place] [address] VENOUS BLOOD GAS PLUS LACTAT Ernesto 07-12-2021 Base Excess -1.6 mmol/L Normal -3.0-3.0 [facility] Comment on above: Performed By: #### Say SEGOVIA, [id number] #### [facility] (DEFAULT) [address] [place] [address] HCO3 (Bld) [Moles/Vol] 24 mmol/L Normal 22-29 [facility] Comment on above: Performed By: #### Say [id number], [id number] #### [facility] (DEFAULT) [address] [place] [address] Lactate, Whole Blood 1.5 mmol/L Normal 0.5-1.6 [facility] Comment on above: Performed By: #### L [id number], [id number] #### [facility] (DEFAULT) [address] [place] [address] PCO2 46 mm Hg Normal 36-52 [facility] Comment on above: Performed By: #### L [id number], [id number] #### [facility] (DEFAULT) [address] [place] [address] pH (Bld) 7.33 [pH] Normal 7.32-7.43 [facility] Comment on above: Performed By: #### L [id number], [id number] #### [facility] (DEFAULT) [address] [place] [address] PO2 54 mm Hg Normal [facility] Comment on above: Result Comment: Veno us pO2 is not recommended for the evaluation of oxygen status, clinical correlation is recommended. Performed By: #### L [id number], [id number] #### [facility] (DEFAULT) [address] [place] [address] sO2 87 % High 70-80 [facility] Comment on above: Performed By: #### L [id number], [id number] #### [facility] (DEFAULT) [address] [place] [address] Base excess Calc (Bld) [Moles/Vol] -1.6000 mmol/L -3.0 - 3.0 mmol/L [facility] CO2 (Bld) [Partial pressure] 46 mm[Hg] [facility] HCO3 (Bld) [Moles/Vol] 24 mmol/L 22 - 29 mmol/L [facility] Interpretation and review of laboratory results Abnormal [facility] Lactate [Moles/Vol] 1.5 mmol/L 0.5 - 1. 6 mmol/L [facility] Oxygen (Bld) [Partial pressure] 54 mm[Hg] mm Hg [facility] Comment on above: Venous pO2 is not re commended for the evaluation of oxygen status, clinical correlation is recommended. Oxygen saturation in Blood 87 % High 70 - 80 % [facility] pH (Bld) 7.33 [pH] [facility] X[facility] ABDOMEN 1 VIEWon 07-13-19 XR ABDOMEN [...] age. IMPRESSION: No acute radiographic findings. Normal [facility] XR Abdomen Single viewon IMPRESSION: No [...] age. IMPRESSION IMPRESSION: No acute radiographic findings. [facility] Radiology Study observation (narrative) [facility] XR Abdomen Single viewOrdere d By: Carlos Adhikari on 07-12-2021 [facility] Work Phone: No Panel Informationon 03-24 Culture Urine 10,000 - 50,000 cfu/ ml Multiple bacterial morphotypes present. Probable Contamination. Suggest recollection if clinically indicated. [facility] Work Phone: Office Visiton 11-12-2016 Dietary management education, guidance, and counseling (procedure) yes Invalid Interpretation Code [facility] Work Phone: [phone] Documentation of current medications (procedure) Done Invalid Interpretation Code [facility] Work Phone: [phone] Fall risk assessment Yes Invalid Interpretation Code [facility] Work Phone: [phone] Protein mass conc Done [facility] Work Phone: [phone] Tobacco smoking status NHIS Never smoker [facility] Work Phone: [phone] Tobacco use HS Never smoker Invalid Interpretation Code [facility] Work Phone: [phone] Clinical Lists Update: [employer] 11-11-2016 Left ventricular Ejection fraction 70 % Invalid Interpretation Code [facility] Work Phone: Office Visiton 04-30-2016 Protein mass conc Done [facility] Work Phone: [phone] Microbiology: Culture, Urine on 04-11-2016 CUUR Tobramycin $ <=1 [facility] Work Phone: [phone] GE use only - for [employer] import when terms are not otherwise specified Tobramycin $ <=1 S Invalid Interpretation Code [facility] Work Phone: Office Visiton 05-15-2015 Tobacco smoking status NHIS Never smoker [facility] Work Phone: [phone] Clinical Lists Update: [employer] 04-02-2015 Alkaline phosphatase (ALP) 67 U/L Invalid Interpretation Code [facility] Work Phone: [phone] ALP enzyme act/vol (Bld) 67 U/L [facility] Work Phone: [phone] ALT enzyme act/vol 24 U/L Invalid Interpretation Code [facility] Work Phone: [phone] AST enzyme act/vol 16 U/L Invalid Interpretation Code [facility] Work Phone: [phone] Bilirubin mass conc 0.2 mg/dL Invalid Interpretation Code [facility] Work Phone: [phone] Chloride molar conc 107 mmol/L Invalid Interpretation Code [facility] Work Phone: [phone] CO2 26 mmol/L Invalid Interpretation Code [facility] Work Phone: [phone] CO2 ppres (BldV) 26 mmol/L [facility] Work Phone: [phone] Creatinine mass conc 0.63 mg/dL Invalid Interpretation Code [facility] Work Phone: [phone] Glucose 80 mg/dL Invalid Interpretation Code [facility] Work Phone: [phone] Glucose mass conc 80 mg/dL [facility] Work Phone: [phone] Hematocrit (HCT) 34.0 % Invalid Interpretation Code [facility] Work Phone: [phone] Hematocrit Volume Fraction (Bld) 34.0 % [facility] Work Phone: [phone] Hemoglobin mass conc (Bld) 11.1 g/dL Invalid Interpretation Code [facility] Work Phone: [phone] MCV 88.2 fL Invalid Interpretation Code [facility] Work Phone: [phone] MCV Entitic volume (RBC) 88.2 fL [facility] Work Phone: [phone] Platelets 142 10*3/mm3 Invalid Interpretation Code [facility] Work Phone: [phone] Platelets #/vol (Bld) 142 10*3/mm3 [facility] Work Phone: [phone] Potassium molar conc 3.7 mmol/L Invalid Interpretation Code [facility] Work Phone: [phone] Sodium molar conc 138 mmol/L Invalid Interpretation Code [facility] Work Phone: [phone] Urea nitrogen mass conc 18 mg/dL Invalid Interpretation Code [facility] Work Phone: [phone] WBC #/vol (Bld) 5.7 10*3/uL [facility] Work Phone: [phone] WBC (Leukocytes) 5.7 10*3/uL Invalid Interpretation Code [facility] Work Phone: [phone] Clinical Lists Update: [employer] 02-19-2015 Magnesium mass conc 2.1 mg/dL Invalid Interpretation Code [facility] Work Phone: [phone] Clinical Lists Update: [employer] 02-17-2015 Albumin mass conc 3.2 g/dL Invalid Interpretation Code [facility] Work Phone: [phone] Replaced Document: Sabino Alston CG Observationson 08-15-2014 EKG QRS axis 43 deg [facility] Work Phone: [phone] electrocardiogram interpretation Marked sinus Bradycardia BORDERLINE RHYTHM Invalid Interpretation Code [facility] Work Phone: [phone] Interpretation Marked sinus Bradyca rdia BORDERLINE RHYTHM [facility] Work Phone: [phone] P [place] 42 deg [facility] Work Phone: [phone] P wave axis, electrocardiogram 42 deg Invalid Interpretation Code [facility] Work Phone: [phone] PA Interval 180 ms [facility] Work Phone: [phone] PA interval, electrocardiogram 180 ms Invalid Interpretation Code [facility] Work Phone: [phone] Pulse (Heart Rate) 46 /min Invalid Interpretation Code [facility] Work Phone: [phone] QRS axis, electrocardiogram 43 deg Invalid Interpretation Code [facility] Work Phone: [phone] QRS Duration 104 ms [facility] Work Phone: [phone] QRS duration, electrocardiogram 104 ms Invalid Interpretation Code [facility] Work Phone: [phone] QT Interval new path ms [facility] Work Phone: [phone] QT interval, electrocardiogram new path ms Invalid Interpretation Code [facility] Work Phone: [phone] T [place] 55 deg [facility] Work Phone: [phone] T wave axis, electrocardiogram 55 deg Invalid Interpretation Code [facility] Work Phone: [phone] Lab Report: Basic Metabolic Profile (BMP)on 07-16-2014 Anion gap 8 mmol/L Invalid Interpretation Code 07-27 [facility] Work Phone: [phone] Anion gap molar conc 8 mmol/L 07-[address] [facility] Work Phone: [phone] Calcium mass conc 8.8 mg/dL Invalid Interpretation Code 8.5-10.1 [facility] Work Phone: [phone] eGFR (non-black) 96 mL/min/{1.73_m2} Invalid Interpretation Code >60 [facility] Work Phone: [phone] EST GFR - AA 96 mL/min >60 [facility] Work Phone: [phone] GFR/1.73 sq M predicted among non-blacks MDRD vol rate/area (S/P/Bld) 79 mL/min/{1.73_m2} Invalid Interpretation Code >60 [facility] Work Phone: [phone] Urea nitrogen/Creatinine mass ratio 17.0 RATIO Invalid Interpretation Code 10-20 [facility] Work Phone: [phone] Office Visiton 07-12-2014 cardiac risk group B Invalid Interpretation Code [facility] Work Phone: [phone] General cardiovascular disease 10Y risk [#] [place] Not enough information Invalid Interpretation Code [facility] Work Phone: [phone] Clinical Lists Update: [employer] 06-09-2014 Erythrocytes (RBC) 3.67 10*6/uL Invalid Interpretation Code [facility] Work Phone: [phone] MCH 30.5 pg Invalid Interpretation Code [facility] Work Phone: [phone] MCH Entitic mass (RBC) 30.5 pg [facility] Work Phone: [phone] MCHC 34.8 g/dL Invalid Interpretation Code [facility] Work Phone: [phone] MCHC mass conc (RBC) 34.8 g/dL [facility] Work Phone: [phone] RBC #/vol (Bld) 3.67 10*6/uL [facility] Work Phone: [phone] Clinical Lists Update: [employer] reading [employer] 06-08-2014 Thyrotropin Qn 4.52 u[iU]/mL High [facility] Work Phone: [phone] Culture, urine Bacteria identified Cx Nom (U) Escherichia coli [facility] Work Phone: Bacteria identified Cx Nom (U) Pseudomonas aeroginosa [facility] Work Phone: Laboratory - Microbiology an d Antimicrobial susceptibility Bacteria identified Cx Nom (Bld) Escherichia coli [facility] Work Phone: Lower GI hemoglobin IA Ql (S tl) Stool Occult Blood (DEV) Positive [facility] Work Phone: Vital Signs Date Time Vital Sign Value Performing Clinician Facility 08-08-2024 14:31-0400 Body height 177.[address] Mallory Mcpherson DO Work Phone: [facility] 08-08-2024 06:51-0400 Body mass index (BMI) [Ratio] 35.9 kg/m2 Dr. Mallory Mcpherson DO Work Phone: [facility] 08-08-2024 06:51-0400 Body weight 113.[address] Mallory Mcpherson DO Work Phone: [facility] 08-08-2024 06:51-0400 Diastolic blood pressure 62 mm[Hg] Dr. Mallory Mcpherson DO Work Phone: [facility] 08-08-2024 06:51-0400 Heart rate 58 /min Dr. Mallory Mcpherson DO Work Phone: [facility] 08-08-2024 06:51-0400 Respiratory rate 18 /min Dr. Mallory Mcpherson DO Work Phone: [facility] 08-08-2024 06:51-0400 SaO2% (BldA) [Mass fraction] 96 % Dr. Mallory Mcpherson DO Work Phone: [facility] 08-08-2024 06:51-0400 Systolic blood pressure 120 mm[Hg] Dr. Mallory Mcpherson DO Work Phone: [facility] 05-01-2024 15:00-0500 Body temperature 98.7 [degF] Dr. Mallory Mcpherson DO Work Phone: [facility] 05-01-2024 15:00-0500 Diastolic blood pressure 66 mm[Hg] Dr. Mallory Mcpherson DO Work Phone: [facility] 05-01-2024 15:00-0500 Heart rate 78 /min Dr. Mallory Mcpherson DO Work Phone: [facility] 05-01-2024 15:00-0500 Respiratory rate 16 /min Dr. Mallory Mcpherson DO Work Phone: [facility] 05-01-2024 15:00-0500 SaO2% (BldA) [Mass fraction] 97 % Dr. Mallory Mcpherson DO Work Phone: [facility] 05-01-2024 15:00-0500 Systolic blood pressure 127 mm[Hg] Dr. Mallory Mcpherson DO Work Phone: [facility] 04-26-2024 12:14-0500 Body weight 107.[address] Mallory Mcpherson DO Work Phone: [facility] 04-25-2024 14:00-0500 Body mass index (BMI) [Ratio] 33.8 kg/m2 Dr. Mallory Mcpherson DO Work Phone: [facility] 05-04-2023 11:32-0500 Body height 182.[address] Mallory Mcpherson Work Phone: [facility] 05-04-2023 11:32-0500 Body mass index (BMI) [Ratio] 35.9 kg/m2 Dr. Mallory Mcpherson Work Phone: [facility] 05-04-2023 11:32-0500 Body weight 120.[address] Mallory Mcpherson Work Phone: [facility] 05-04-2023 11:32-0500 Diastolic blood pressure 75 mm[Hg] Dr. Mallory Mcpherson Work Phone: [facility] 05-04-2023 11:32-0500 Heart rate 61 /min Dr. Mallory Mcpherson Work Phone: [facility] 05-04-2023 11:32-0500 Respiratory rate 18 /min Dr. Mallory Mcpherson Work Phone: [facility] 05-04-2023 11:32-0500 SaO2% (BldA) [Mass fraction] 98 % Dr. Mallory Mcpherson Work Phone: [facility] 05-04-2023 11:32-0500 Systolic blood pressure 124 mm[Hg] Dr. Mallory Mcpherson Work Phone: [facility] 11-04-2022 15:01-0400 Body height 182.[address] Mallory Mcpherson Work Phone: [facility] 11-04-2022 15:01-0400 Body mass index (BMI) [Ratio] 34.2 kg/m2 Dr. Mallory Mcpherson Work Phone: [facility] 11-04-2022 15:01-0400 Body weight 114.[address] Mallory Mcpherson Work Phone: [facility] 11-04-2022 15:01-0400 Diastolic blood pressure 82 mm[Hg] Dr. Mallory Mcpherson Work Phone: [facility] 11-04-2022 15:01-0400 Heart rate 68 /min Dr. Mallory Mcpherson Work Phone: [facility] 11-04-2022 15:01-0400 Respiratory rate 18 /min Dr. Mallory Mcpherson Work Phone: [facility] 11-04-2022 15:01-0400 SaO2% (BldA) [Mass fraction] 96 % Dr. Mallory Mcpherson Work Phone: [facility] 11-04-2022 15:01-0400 Systolic blood pressure 155 mm[Hg] Dr. Mallory Mcpherson Work Phone: [facility] 10-15-2022 17:50-0400 Diastolic blood pressure 66 mm[Hg] Dr. Mallory Mcpherson Work Phone: [facility] 10-15-2022 17:50-0400 Heart rate 78 /min Dr. Mallory Mcpherson Work Phone: [facility] 10-15-2022 17:50-0400 Respiratory rate 16 /min Dr. Mallory Mcpherson Work Phone: [facility] 10-15-2022 17:50-0400 Systolic blood pressure 128 mm[Hg] Dr. Mallory Mcpherson Work Phone: [facility] 10-15-2022 16:47-0400 SaO2% (BldA) [Mass fraction] 96 % Dr. Mallory Mcpherson Work Phone: [facility] 10-15-2022 15:18-0400 Body height 182.[address] Mallory Mcpherson Work Phone: [facility] 10-15-2022 15:18-0400 Body mass index (BMI) [Ratio] 35.9 kg/m2 Dr. Mallory Mcpherson Work Phone: [facility] 10-15-2022 15:18-0400 Body temperature 98 [degF] Dr. Mallory Mcpherson Work Phone: [facility] 10-15-2022 15:18-0400 Body weight 120.[address] Mallory Mcpherson Work Phone: [facility] 08-28-2022 11:15-0400 Body temperature 98.6 [degF] Dr. Mallory Mcpherson Work Phone: [facility] 08-28-2022 11:15-0400 Diastolic blood pressure 76 mm[Hg] Dr. Mallory Mcpherson Work Phone: [facility] 08-28-2022 11:15-0400 Heart rate 56 /min Dr. Mallory Mcpherson Work Phone: [facility] 08-28-2022 11:15-0400 Respiratory rate 16 /min Dr. Mallory Mcpherson Work Phone: [facility] 08-28-2022 11:15-0400 SaO2% (BldA) [Mass fraction] 96 % Dr. Mallory Mcpherson Work Phone: [facility] 08-28-2022 11:15-0400 Systolic blood pressure 122 mm[Hg] Dr. Mallory Mcpherson Work Phone: [facility] 08-26-2022 14:33-0400 Body height 175.[address] Mallory Mcpherson Work Phone: [facility] 08-26-2022 14:33-0400 Body weight 117.[address] Mallory Mcpherson Work Phone: [facility] 08-25-2022 14:24-0400 Body mass index (BMI) [Ratio] 38.1 kg/m2 Dr. Mallory Mcpherson Work Phone: [facility] 04-26-2022 14:31-0500 Body mass index (BMI) [Ratio] 35.7 kg/m2 Dr. Mallory Mcpherson Work Phone: [facility] 04-26-2022 14:31-0500 Body weight 112.[address] Mallory Mcpherson Work Phone: [facility] 04-26-2022 14:31-0500 Diastolic blood pressure 84 mm[Hg] Dr. Mallory Mcpherson Work Phone: [facility] 04-26-2022 14:31-0500 Heart rate 62 /min Dr. Mallory Mcpherson Work Phone: [facility] 04-26-2022 14:31-0500 Respiratory rate 18 /min Dr. Mallory Mcpherson Work Phone: [facility] 04-26-2022 14:31-0500 SaO2% (BldA) [Mass fraction] 98 % Dr. Mallory Mcpherson Work Phone: [facility] 04-26-2022 14:31-0500 Systolic blood pressure 143 mm[Hg] Dr. Mallory Mcpherson Work Phone: [facility] 12-04-2021 11:10-0400 Body height 172.[address] Mallory Mcpherson Work Phone: [facility] 12-04-2021 11:10-0400 Body mass index (BMI) [Ratio] 37.5 kg/m2 Dr. Mallory Mcpherson Work Phone: [facility] 12-04-2021 11:10-0400 Body weight 112.[address] Mallory Mcpherson Work Phone: [facility] 12-04-2021 11:10-0400 Diastolic blood pressure 66 mm[Hg] Dr. Mallory Mcpherson Work Phone: [facility] 12-04-2021 11:10-0400 Heart rate 59 /min Dr. Mallory Mcpherson Work Phone: [facility] 12-04-2021 11:10-0400 Respiratory rate 18 /min Dr. Mallory Mcpherson Work Phone: [facility] 12-04-2021 11:10-0400 Systolic blood pressure 118 mm[Hg] Dr. Mallory Mcpherson Work Phone: [facility] 09-19-2021 13:00-0400 Body temperature 98.1 [degF] Dr. Mallory Mcpherson Work Phone: [facility] Work Phone: 09-19-2021 13:00-0400 Diastolic blood pressure 61 mm[Hg] Dr. Mallory Mcpherson Work Phone: [facility] Work Phone: 09-19-2021 13:00-0400 Heart rate 68 /min Dr. Mallory Mcpherson Work Phone: [facility] Work Phone: 09-19-2021 13:00-0400 Respiratory rate 16 /min Dr. Mallory Mcpherson Work Phone: [facility] Work Phone: 09-19-2021 13:00-0400 SaO2% (BldA) [Mass fraction] 95 % Dr. Mallory Mcpherson Work Phone: [facility] Work Phone: 09-19-2021 13:00-0400 Systolic blood pressure 108 mm[Hg] Dr. Mallory Mcpherson Work Phone: [facility] Work Phone: 09-17-2021 10:28-0400 Body weight 105.[address] Mallory Mcpherson Work Phone: [facility] Work Phone: 09-16-2021 14:46-0400 Diastolic blood pressure 93 mm[Hg] Dr. Mallory Mcpherson Work Phone: [facility] Work Phone: 09-16-2021 14:46-0400 Heart rate 70 /min Dr. Mallory Mcpherson Work Phone: [facility] Work Phone: 09-16-2021 14:46-0400 Respiratory rate 18 /min Dr. Mallory Mcpherson Work Phone: [facility] Work Phone: 09-16-2021 14:46-0400 SaO2% (BldA) [Mass fraction] 98 % Dr. Mallory Mcpherson Work Phone: [facility] Work Phone: 09-16-2021 14:46-0400 Systolic blood pressure 124 mm[Hg] Dr. Mallory Mcpherson Work Phone: [facility] Work Phone: 09-11-2021 16:00-0400 Body temperature 98.7 [degF] Dr. Mallory Mcpherson Work Phone: [facility] Work Phone: 09-11-2021 16:00-0400 Diastolic blood pressure 67 mm[Hg] Dr. Mallory Mcpherson Work Phone: [facility] Work Phone: 09-11-2021 16:00-0400 Heart rate 66 /min Dr. Mallory Mcpherson Work Phone: [facility] Work Phone: 09-11-2021 16:00-0400 Respiratory rate 16 /min Dr. Mallory Mcpherson Work Phone: [facility] Work Phone: 09-11-2021 16:00-0400 SaO2% (BldA) [Mass fraction] 95 % Dr. Mallory Mcpherson Work Phone: [facility] Work Phone: 09-11-2021 16:00-0400 Systolic blood pressure 107 mm[Hg] Dr. Mallory Mcpherson Work Phone: [facility] Work Phone: 09-10-2021 13:51-0400 Body height [address] Mallory Mcpherson Work Phone: [facility] Work Phone: 09-10-2021 13:51-0400 Body weight 105.[address] Mallory Mcpherson Work Phone: [facility] Work Phone: 09-10-2021 08:19-0400 Heart rate 74 /min Dr. Mallory Mcpherson Work Phone: [facility] Work Phone: 09-10-2021 08:19-0400 Respiratory rate 16 /min Dr. Mallory Mcpherson Work Phone: [facility] Work Phone: 09-10-2021 06:39-0400 Body temperature 99.4 [degF] Dr. Mallory Mcpherson Work Phone: [facility] Work Phone: 09-10-2021 06:39-0400 Diastolic blood pressure 73 mm[Hg] Dr. Mallory Mcpherson Work Phone: [facility] Work Phone: 09-10-2021 06:39-0400 SaO2% (BldA) [Mass fraction] 94 % Dr. Mallory Mcpherson Work Phone: [facility] Work Phone: 09-10-2021 06:39-0400 Systolic blood pressure 145 mm[Hg] Dr. Mallory Mcpherson Work Phone: [facility] Work Phone: 09-09-2021 13:00-0400 Body weight 105.[address] Mallory Mcpherson Work Phone: [facility] Work Phone: 09-08-2021 14:55-0400 Diastolic blood pressure 71 mm[Hg] Dr. Mallory Mcpherson Work Phone: [facility] Work Phone: 09-08-2021 14:55-0400 Heart rate 89 /min Dr. Mallory Mcpherson Work Phone: [facility] Work Phone: 09-08-2021 14:55-0400 Respiratory rate 18 /min Dr. Mallory Mcpherson Work Phone: [facility] Work Phone: 09-08-2021 14:55-0400 SaO2% (BldA) [Mass fraction] 94 % Dr. Mallory Mcpherson Work Phone: [facility] Work Phone: 09-08-2021 14:55-0400 Systolic blood pressure 115 mm[Hg] Dr. Mallory Mcpherson Work Phone: [facility] Work Phone: 09-07-2021 12:37-0400 Diastolic blood pressure 67 mm[Hg] Dr. Mallory Mcpherson Work Phone: [facility] Work Phone: 09-07-2021 12:37-0400 Systolic blood pressure 120 mm[Hg] Dr. Mallory Mcpherson Work Phone: [facility] Work Phone: 09-07-2021 11:56-0400 Heart rate 64 /min Dr. Mallory Mcpherson Work Phone: [facility] Work Phone: 09-07-2021 11:56-0400 Respiratory rate 18 /min Dr. Mallory Mcpherson Work Phone: [facility] Work Phone: 09-07-2021 11:56-0400 SaO2% (BldA) [Mass fraction] 94 % Dr. Mallory Mcpherson Work Phone: [facility] Work Phone: 09-07-2021 09:57-0400 Body height [address] Mallory Mcpherson Work Phone: [facility] Work Phone: 09-07-2021 09:57-0400 Body mass index (BMI) [Ratio] 34 kg/m2 Dr. Mallory Mcpherson Work Phone: [facility] Work Phone: 09-07-2021 09:57-0400 Body temperature 98.4 [degF] Dr. Mallory Mcpherson Work Phone: [facility] Work Phone: 09-07-2021 09:57-0400 Body weight 101.[address] Mallory Mcpherson Work Phone: [facility] Work Phone: 09-07-2021 06:24-0400 Body temperature 98.8 [degF] Dr. Mallory Mcpherson Work Phone: [facility] Work Phone: 09-07-2021 06:24-0400 Diastolic blood pressure 70 mm[Hg] Dr. Mallory Mcpherson Work Phone: [facility] Work Phone: 09-07-2021 06:24-0400 Heart rate 66 /min Dr. Mallory Mcpherson Work Phone: [facility] Work Phone: 09-07-2021 06:24-0400 Systolic blood pressure 139 mm[Hg] Dr. Mallory Mcpherson Work Phone: [facility] Work Phone: 09-06-2021 14:17-0400 Respiratory rate 20 /min Dr. Mallory Mcpherson Work Phone: [facility] Work Phone: 09-06-2021 14:17-0400 SaO2% (BldA) [Mass fraction] 98 % Dr. Mallory Mcpherson Work Phone: [facility] Work Phone: 09-05-2021 14:51-0400 Body mass index (BMI) [Ratio] 34.8 kg/m2 Dr. Mallory Mcpherson Work Phone: [facility] Work Phone: 09-05-2021 14:51-0400 Body weight 106.[address] Mallory Mcpherson Work Phone: [facility] Work Phone: 09-05-2021 14:51-0400 Diastolic blood pressure 68 mm[Hg] Dr. Mallory Mcpherson Work Phone: [facility] Work Phone: 09-05-2021 14:51-0400 Heart rate 61 /min Dr. Mallory Mcpherson Work Phone: [facility] Work Phone: 09-05-2021 14:51-0400 Respiratory rate 18 /min Dr. Mallory Mcpherson Work Phone: [facility] Work Phone: 09-05-2021 14:51-0400 SaO2% (BldA) [Mass fraction] 97 % Dr. Mallory Mcpherson Work Phone: [facility] Work Phone: 09-05-2021 14:51-0400 Systolic blood pressure 111 mm[Hg] Dr. Mallory Mcpherson Work Phone: [facility] Work Phone: 09-03-2021 16:33-0400 Body weight 108.[address] Mallory Mcpherson Work Phone: [facility] Work Phone: 08-17-2021 23:00-0400 Body mass index (BMI) [Ratio] 35.2 kg/m2 Dr. Mallory Mcpherson Work Phone: [facility] Work Phone: 08-17-2021 15:35-0400 Body temperature 97.9 [degF] Dr. Mallory Mcpherson Work Phone: [facility] Work Phone: 08-17-2021 15:35-0400 Diastolic blood pressure 57 mm[Hg] Dr. Mallory Mcpherson Work Phone: [facility] Work Phone: 08-17-2021 15:35-0400 Heart rate 62 /min Dr. Mallory Mcpherson Work Phone: [facility] Work Phone: 08-17-2021 15:35-0400 Respiratory rate 16 /min Dr. Mallory Mcpherson Work Phone: [facility] Work Phone: 08-17-2021 15:35-0400 SaO2% (BldA) [Mass fraction] 96 % Dr. Mallory Mcpherson Work Phone: [facility] Work Phone: 08-17-2021 15:35-0400 Systolic blood pressure 110 mm[Hg] Dr. Mallory Mcpherson Work Phone: [facility] Work Phone: 08-16-2021 23:00-0400 Body mass index (BMI) [Ratio] 34.2 kg/m2 Dr. Mallory Mcpherson Work Phone: [facility] Work Phone: 08-15-2021 06:00-0400 Body weight 107.[address] Mallory Mcpherson Work Phone: [facility] Work Phone: 08-08-2021 12:47-0400 Body height 175.[address] Mallory Mcpherson Work Phone: [facility] Work Phone: 07-25-2021 03:30-0400 Body temperature 97.3 [degF] Michael Roblero MD Work Phone: [facility] 07-25-2021 03:30-0400 Diastolic blood pressure 82 mm[Hg] Michael Roblero MD Work Phone: [facility] 07-25-2021 03:30-0400 Heart rate 67 /min Michael Roblero MD Work Phone: [facility] 07-25-2021 03:30-0400 Respiratory rate 18 /min Michael Roblero MD Work Phone: [facility] 07-25-2021 03:30-0400 SaO2% (BldA) [Mass fraction] 95 % Michael Roblero MD Work Phone: [facility] 07-25-2021 03:30-0400 Systolic blood pressure 158 mm[Hg] Michael Roblero MD Work Phone: [facility] 07-22-2021 20:06-0400 Body height 175.3 cm Michael Roblero MD Work Phone: [facility] 07-22-2021 15:04-0400 Body mass index (BMI) [Ratio] 34.09 kg/m2 Michael Roblero MD Work Phone: [facility] 07-22-2021 15:04-0400 Body weight 104.7 kg Michael Roblero MD Work Phone: [facility] 07-22-2021 12:00-0400 Diastolic blood pressure 66 mm[Hg] Dr. Mallory Mcpherson Work Phone: [facility] Work Phone: 07-22-2021 12:00-0400 Heart rate 57 /min Dr. Mallory Mcpherson Work Phone: [facility] Work Phone: 07-22-2021 12:00-0400 Respiratory rate 14 /min Dr. Mallory Mcpherson Work Phone: [facility] Work Phone: 07-22-2021 12:00-0400 SaO2% (BldA) [Mass fraction] 98 % Dr. Mallory Mcpherson Work Phone: [facility] Work Phone: 07-22-2021 12:00-0400 Systolic blood pressure 120 mm[Hg] Dr. Mallory Mcpherson Work Phone: [facility] Work Phone: 07-22-2021 11:30-0400 Body height 175.[address] Mallory Mcpherson Work Phone: [facility] Work Phone: 07-22-2021 11:30-0400 Body mass index (BMI) [Ratio] 35.3 kg/m2 Dr. Mallory Mcpherson Work Phone: [facility] Work Phone: 07-22-2021 11:30-0400 Body weight 108.[address] Mallory Mcpherson Work Phone: [facility] Work Phone: 07-22-2021 11:15-0400 Body temperature 96 [degF] Dr. Mallory Mcpherson Work Phone: [facility] Work Phone: 07-22-2021 11:15-0400 Diastolic blood pressure 83 mm[Hg] Dr. Mallory Mcpherson Work Phone: [facility] Work Phone: 07-22-2021 11:15-0400 Heart rate 78 /min Dr. Mallory Mcpherson Work Phone: [facility] Work Phone: 07-22-2021 11:15-0400 Respiratory rate 20 /min Dr. Mallory Mcpherson Work Phone: [facility] Work Phone: 07-22-2021 11:15-0400 Systolic blood pressure 176 mm[Hg] Dr. Mallory Mcpherson Work Phone: [facility] Work Phone: 07-22-2021 07:38-0400 Body temperature 97.1 [degF] Dr. Mallory Mcpherson Work Phone: [facility] Work Phone: 07-22-2021 07:38-0400 Diastolic blood pressure 59 mm[Hg] Dr. Mallory Mcpherson Work Phone: [facility] Work Phone: 07-22-2021 07:38-0400 Heart rate 54 /min Dr. Mallory Mcpherson Work Phone: [facility] Work Phone: 07-22-2021 07:38-0400 Respiratory rate 16 /min Dr. Mallory Mcpherson Work Phone: [facility] Work Phone: 07-22-2021 07:38-0400 SaO2% (BldA) [Mass fraction] 94 % Dr. Mallory Mcpherson Work Phone: [facility] Work Phone: 07-22-2021 07:38-0400 Systolic blood pressure 135 mm[Hg] Dr. Mallory Mcpherson Work Phone: [facility] Work Phone: 07-21-2021 19:30-0400 Body mass index (BMI) [Ratio] 31.3 kg/m2 Dr. Mallory Mcpherson Work Phone: [facility] Work Phone: 07-21-2021 09:26-0400 Body weight 108.[address] Mallory Mcpherson Work Phone: [facility] Work Phone: 07-19-2021 14:04-0400 Body height 175.[address] Mallory Mcpherson Work Phone: [facility] Work Phone: 07-18-2021 08:00-0400 Body temperature 98.29 [degF] Satinder Buckner MD Work Phone: [facility] 07-18-2021 08:00-0400 Diastolic blood pressure 79 mm[Hg] Satinder Buckner MD Work Phone: [facility] 07-18-2021 08:00-0400 Heart rate 60 /min Satinder Buckner MD Work Phone: [facility] 07-18-2021 08:00-0400 Respiratory rate 18 /min Satinder Buckner MD Work Phone: [facility] 07-18-2021 08:00-0400 SaO2% (BldA) [Mass fraction] 94 % Satinder Buckner MD Work Phone: [facility] 07-18-2021 08:00-0400 Systolic blood pressure 171 mm[Hg] Satinder Buckner MD Work Phone: [facility] 07-17-2021 07:39-0400 Body height 175.3 cm Satinder Buckner MD Work Phone: [facility] 07-17-2021 07:39-0400 Body mass index (BMI) [Ratio] 31.43 kg/m2 Satinder Buckner MD Work Phone: [facility] 07-17-2021 07:39-0400 Body weight 96.6 kg Satinder Buckner MD Work Phone: [facility] 07-12-2021 10:55-0400 Body temperature 97.6 [degF] Dr. Mallory Mcpherson Work Phone: [facility] Work Phone: 07-12-2021 10:55-0400 Diastolic blood pressure 70 mm[Hg] Dr. Mallory Mcphesron Work Phone: [facility] Work Phone: 07-12-2021 10:55-0400 Heart rate 65 /min Dr. Mallory Mcpherson Work Phone: [facility] Work Phone: 07-12-2021 10:55-0400 Respiratory rate 20 /min Dr. Mallory Mcpherson Work Phone: [facility] Work Phone: 07-12-2021 10:55-0400 SaO2% (BldA) [Mass fraction] 96 % Dr. Mallory Mcpherson Work Phone: [facility] Work Phone: 07-12-2021 10:55-0400 Systolic blood pressure 127 mm[Hg] Dr. Mallory Mcpherson Work Phone: [facility] Work Phone: 07-12-2021 10:30-0400 Inhaled oxygen flow rate 2 L/min Dr. Mallory Mcpherson Work Phone: [facility] Work Phone: 07-12-2021 09:35-0400 Body height 185.[address] Mallory Mcpherson Work Phone: [facility] Work Phone: 07-12-2021 09:35-0400 Body mass index (BMI) [Ratio] 34.1 kg/m2 Dr. Mallory Mcpherson Work Phone: [facility] Work Phone: 07-12-2021 09:35-0400 Body weight 117.[address] Mallory Mcpherson Work Phone: [facility] Work Phone: 11-12-2016 10:25-0400 BMI (Body Mass Index) 32.84 kg/m2 [facility] Work Phone: 11-12-2016 10:25-0400 [...] BP Diastolic 64 mm[Hg] Lulu Rocha RN [facility] Work Phone: 04-30-2016 10:08-0500 BP Systolic 120 mm[Hg] Lulu Rocha RN [facility] Work Phone: 04-30-2016 10:08-0500 Height 172.72 cm [facility] Work Phone: 04-30-2016 10:08-0500 Pulse (Heart Rate) 64 /min [facility] Work Phone: 04-30-2016 10:08-0500 Respiratory Rate 16 /min [facility] Work Phone: 08-21-2015 10:11-0400 BMI (Body Mass Index) 29.19 kg/m2 [facility] Work Phone: 08-21-2015 10:11-0400 BSA (Body Surface Area) 2.01 m2 Lulu Rocha RN [facility] Work Phone: 08-21-2015 10:11-0400 Weight 87.09 kg Lulu Rocha RN [facility] Work Phone: 08-15-2014 08:43-0400 Heart rate 46 /min [facility] [facility] Work Phone: Encounters Encounter Date Encounter Type Care Provider Facility Start: 11-13-2024 ambulatory Sindi Navarro Facility :[facility] Start: 11-13-2024 Emergency department patient visit [facility] Facility[facility] Start: 11-09-2024 ambulatory Luis Carlos Gallardo Facility:[facility] Start: 10-25-[address] Luis Carlos izaguirre MD -Physical Therapy Work Phone: Start: 10-17-2024 End: 10-17-[address] Mallory Mcpherson DO Work Phone: -Laboratory Start: 10-17-2024 End: 10-17-[address] Miguel Carrillo DO -Laboratory Work Phone: Start: 10-17-2024 End: 10-17-2024 ambulatory Miguel Lorena Facility:[facility] Start: 10-15-2024 End: 10-15-[address] Mallory Mcpherson DO Work Phone: -[facility] Start: 10-15-2024 End: 10-15-[address] Iker Ratliff MD -[facility] Work Phone: Start: 09-27-[address] Luis Carlos izaguirre MD -Physical Therapy Work Phone: Start: 09-15-2024 End: 09-15-[address] Mallory Mcpherson DO Work Phone: -[facility] Start: 09-15-2024 End: 09-15-[address] Iker Ratliff MD -[facility] Work Phone: Start: 09-06-[address] Luis Carlos izaguirre MD -Physical Therapy Work Phone: Start: 08-29-[address] Luis Carlos izaguirre MD -Occupational Therapy Work Phone: Start: 08-16-[address] Luis Carlos izaguirre MD -Physical Therapy Work Phone: Start: 08-16-2024 End: 08-16-[address] Mallory Mcpherson DO Work Phone: [facility] Work Phone: Start: 08-16-2024 End: 08-16-2024 Patient encounter procedure Saundra Hernandez -[facility] Work Phone: Start: 08-08-2024 End: 08-08-2024 Patient encounter procedure Alessandra NGUYỄN -[facility] Work Phone: Start: 08-08-2024 End: 08-08-[address] Mallory Mcpherson DO Work Phone: [facility] Work Phone: Start: 08-08-[address] Luis Carlos izaguirre MD -Speech Therapy Work Phone: Start: 04-07-2024 End: 04-07-2024 ambulatory Luis Carlos Gallardo Facility:[facility] Start: 03-27-2024 ambulatory Luis Carlos Willie Sami Facility:[facility] Start: 03-27-2024 End: 05-01-2024 Evaluation and management of inpatient Dr. Luis Carlos Gallardo MD -Transitional Care Unit Start: 03-23-2024 ambulatory Sindi Navarro Facility :[facility] Start: 03-23-2024 End: 03-27-2024 Evaluation and management of inpatient Sindi Navarro Facility:[facility] Start: 02-28-2024 End: 03-23-2024 Evaluation and management of inpatient Luis Carlos Gallardo Facility:[facility] Start: 02-23-2024 ambulatory Chris Cavazos Fac ility:[facility] Start: 02-23-2024 End: 02-28-2024 Evaluation and management of inpatient Rhett Palma Facility:[facility] Start: 02-22-2024 ambulatory Sindi Say Navarro Facility :[facility] Start: 02-21-2024 End: 02-21-2024 Emergency department patient visit Jesse Yee Facility:[facility] Start: 02-14-2024 ambulatory Chrisgamaliel Tremaynehomeroneftaly Martinez cility:[facility] Start: 02-13-2024 End: 02-13-2024 ambulatory Ahmet Casas Facility:[facility] Start: 02-13-2024 ambulatory Rhett Palma Fac ility:[facility] Start: 02-13-2024 End: 02-17-2024 Evaluation and management of inpatient Sanjuanita Josette Koram Facility:[facility] Start: 02-12-2024 ambulatory Sanjuanita Josette Koram Facility :[facility] Start: 02-09-2024 End: 02-13-2024 ambulatory MALLORY MCPHERSON DO Facility[place] Start: 02-09-2024 End: 02-13-2024 Outreach Lab MALLORY MCPHERSON DO [facility] Start: 02-07-2024 End: 05-10-2024 ambulatory Luis Carlos Chi Sami Facility:[facility] Start: 02-01-2024 End: 02-01-2024 ambulatory Luis Carlos Willie Gallardo Facility:[facility] Start: 12-28-2023 End: 12-28-2023 ambulatory Mallory Ky Facility:[facility] Start: 11-25-2023 End: 11-29-2023 ambulatory MALLORY MCPHERSON DO Facility:[facility] Start: 11-25-2023 End: 11-29-2023 Outreach Lab SOMMER ARCE HOSPICE LIAISON-INDUCTION MACHINE SETTER [facility] Start: 11-22-2023 End: 11-22-2023 Emergency department patient visit Mallory [place] Facility:[facility] Start: 09-28-2023 End: 10-02-2023 ambulatory MALLORY MCPHERSON DO Facility:[facility] Start: 09-28-2023 End: 10-02-2023 Outreach Lab MALLORY MCPHERSON DO [facility] Start: 09-08-2023 End: 09-08-2023 ambulatory MALLORY MCPHERSON DO Facility:[facility] Start: 09-08-2023 End: 09-08-2023 Patient encounter procedure MALLORY GRANTY [facility] Start: 07-09-2023 End: 07-13-2023 ambulatory KIRBY LOPEZ HOSPICE LIAISON-INDUCTION MACHINE SETTER Facility:[facility] Start: 05-25-2023 End: 05-25-[address] Mallory Mcpherson Work Phone: [facility] Work Phone: Start: 05-25-2023 End: 05-25-[address] Mallory Mcpherson Work Phone: [facility]-Physical Therapy Work Phone: Start: 05-04-2023 End: 05-04-[address] Mallory Mcpherson Work Phone: [facility] Work Phone: Start: 04-11-2023 End: 04-11-[address] Mallory Mcpherson Work Phone: [facility] Work Phone: Start: 03-25-2023 End: 03-29-2023 ambulatory MALLORY MCPHERSON DO Facility:[facility] Start: 03-25-2023 End: 03-29-2023 Outreach Lab MALLORY [place] PEREZ [facility] Start: 03-11-2023 End: 03-11-[address] Mallory Mcpherson Work Phone: [facility] Work Phone: Start: 01-29-2023 End: 01-29-[address] Mall[facility] Start: 11-04-2022 End: 11-04-[address] Mallory Mcpherson Work Phone: [facility] Work Phone: Start: 11-04-2022 End: 11-04-[address] Mallory Mcpherson Work Phone: [facility] Work Phone: Start: 11-02-[address] Lan Mcpherson Work Phone: [facility]-Speech Therapy Work Phone: Start: 10-15-2022 End: 10-15-2022 Emergency department patient visit Dr. Mallory Mcpherson Work Phone: [facility]-Emergency Department Work Phone: Start: 10-13-[address] Lan Mcpherson Work Phone: [facility]-Physical Therapy Work Phone: Start: 10-05-2022 End: 10-05-[address] Mallory Mcpherson Work Phone: [facility]-Speech Therapy Work Phone: Start: 08-31-2022 End: 09-04-2022 Outreach Lab MALLORY MCPHERSON DO [facility] Start: 08-28-2022 Non-patient / Non-visit Dr. Stefanie Mcpherson Work Phone: [facility] In[facility] Phys[facility] Start: 08-27-2022 Non-patient / Non-visit Dr. Stefanie Mcpherson Work Phone: [facility] Start: 08-26-2022 Non-patient / Non-visit Dr. Stefanie Mcpherson Work Phone: [facility] Start: 08-25-2022 Non-patient / Non-visit Dr. Stefanie Mcpherson Work Phone: [facility] Start: 08-25-2022 End: 08-28-2022 Evaluation and management of inpatient Dr. Mallory Mcpherson Work Phone: [facility]-Medical Surgical 3 Start: 08-18-[address] Lan Mcpherson Work Phone: [facility]-Speech Therapy Start: 06-18-2022 End: 06-18-[address] Mallory Mcpherson Work Phone: [facility] Start: 05-19-2022 End: 05-19-[address] Mallory Mcpherson Work Phone: [facility] Start: 03-26-2022 End: 03-26-[address] Mallory Mcpherson Work Phone: [facility] Work Phone: Start: 03-26-2022 End: 03-26-[address] 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 Mallory Mcpherson Work Phone: [facility] Start: 12-24-2021 End: 12-28-2021 Outreach Lab KASSIDY BRUCE [facility]ISON[facility] Start: 12-04-2021 End: 12-04-[address] Mallory Mcpherson Work Phone: [facility] Start: 09-16-2021 End: 09-16-[address] Mallory Mcpherson Work Phone: [facility] Start: 09-08-2021 End: 09-08-[address] Mallory Mcpherson Work Phone: [facility] Start: 09-07-2021 End: 09-07-2021 Emergency department patient visit Dr. Mallory Mcpherson Work Phone: [facility]-Emergency Department Start: 09-05-2021 End: 09-05-[address] Mallory Mcpherson Work Phone: [facility] Start: 08-17-2021 End: 09-19-2021 Evaluation and management of inpatient Dr. Mallory Mcpherson Work Phone: [facility]-Transitional Care Unit Start: 08-15-2021 Non-patient / Non-visit Dr. Stefanie Mcpherson Work Phone: [facility] Start: 08-11-2021 Non-patient / Non-visit Dr. Stefanie Mcpherson Work Phone: [facility] Start: 08-10-2021 Non-patient / Non-visit Dr. Stefanie Mcpherson Work Phone: [facility] Start: 08-08-2021 Non-patient / Non-visit Dr. Stefanie Mcpherson Work Phone: [facility] Start: 08-06-2021 Non-patient / Non-visit Dr. Stefanie Mcpherson Work Phone: [facility] Start: 08-05-2021 Non-patient / Non-visit Dr. Stefanie Mcpherson Work Phone: [facility] Start: 08-04-2021 Non-patient / Non-visit Dr. Stefanie Mcpherson Work Phone: [facility] Start: 08-01-2021 Non-patient / Non-visit Dr. Stefanie Mcpherson Work Phone: [facility] Start: 07-31-2021 Non-patient / Non-visit Dr. Stefanie Mcpherson Work Phone: [facility] Start: 07-28-2021 Non-patient / Non-visit Dr. Stefanie Mcpherson Work Phone: [facility] Start: 07-25-2021 Non-patient / Non-visit Dr. Stefanie Mcpherson Work Phone: [facility] Start: 07-25-2021 End: 08-17-2021 Evaluation and management of inpatient Dr. Mallory Mcpherson Work Phone: [facility]-Rehab Unit Start: 07-23-2021 End: 07-23-[address] Mallory Mcpherson Work Phone: [facility] Start: 07-22-2021 End: 07-25-2021 Evaluation and management of inpatient ZACH LOZOYA Facility:[facility] Start: 07-22-2021 End: 07-25-2021 Evaluation and management of inpatient Michael Roblero MD Work Phone: [id number] Comment on above: Altered mental statu s Start: 07-22-2021 End: 07-22-2021 Evaluation and management of inpatient Dr. Mallory Mcpherson Work Phone: [facility]-Intensive Care Unit Start: 07-22-2021 Non-patient / Non-visit Dr. Stefanie Mcpherson Work Phone: [facility] Start: 07-18-2021 End: 07-22-2021 Evaluation and management of inpatient Dr. Mallory Mcpherson Work Phone: [facility]-Rehab Unit Start: 07-12-2021 End: 07-18-2021 Evaluation and management of inpatient COREEN RUSS Facility:[facility] Start: 07-12-2021 End: 07-18-2021 Evaluation and management of inpatient Satinder Buckner MD Work Phone: [id number] Comment on above: Stroke Start: 07-12-2021 End: 07-12-[address] Mallory Mcpherson Work Phone: [facility] Start: 07-12-2021 End: 07-12-2021 Emergency department patient visit Dr. Mallory Mcpherson Work Phone: [facility]-Emergency Department Start: 05-30-2021 Non-patient / Non-visit Dr. Stefanie Mcpherson Work Phone: [facility] Start: 05-30-2021 End: 05-30-[address] Mallory Mcpherson Work Phone: [facility]-Cardiovascula r Services Start: 05-28-2021 End: 05-28-[address] Mallory Mcpherson Work Phone: [facility]-Ultrasound, [facility] Start: 05-07-2021 End: 05-07-[address] Mallory Mcpherson Work Phone: [facility]-Massage Therapy, [facility] Start: 05-07-2021 End: 05-07-[address] Mallory Mcpherson Work Phone: [facility] Start: 05-06-2021 Non-patient / Non-visit Dr. Stefanie Mcpherson Work Phone: [facility] Start: 05-02-2021 End: 05-02-[address] Mallory Mcpherson Work Phone: [facility] Start: 03-24-2021 End: 03-28-2021 Outreach Lab MALLORY MCPHERSON DO [facility] Start: 03-05-[address] Mallory Mcpherson Work Phone: [facility]-Pulmonary Services/Neurology Start: 03-02-2021 End: 03-02-[address] Mallory Mcpherson Work Phone: [facility] Procedures Date Procedure Procedure Detail [...] is considered significant. Performed By: #### L [id number], [id number] #### [facility] (DEFAULT) [address] [place] [address] Start: 07-22-2021 Radiologic exam ches t single view Mirza Ritchie MD Work Phone: Start: 07-22-2021 Bilirubin direct Mirza Ritchie MD Work Phone: Start: 07-22-2021 Blood gases any comb ination ph pco2 po2 co2 hco3 Mirza Ritchie MD Work Phone: Start: 07-22-2021 CBC AND ELECTRONIC DIFF Mirza Ritchie MD Work Phone: Start: 07-22-2021 Complete blood count with white cell differential, automated Mirza Ritchie MD Work Phone: Start: 07-22-2021 Culture bct [...] Ct head/brain w/o co ntrast material Mirza Rithcie MD Work Phone: Start: 07-22-2021 Glucose measurement, blood Denver Hampton MD Work Phone: Start: 07-22-2021 CT angiography of he ad and neck Dr. Mallory Mcpherson Work Phone: Start: 07-22-2021 CT of head without contrast Dr. Mallory Mcpherson Work Phone: Start: 07-17-2021 TTE w or wo fol wcon,Doppler Jaxonjoan Dahl MD Work Phone: Start: 07-17-2021 Creatinine blood Julio Cesar Law HOSPICE LIAISON-INDUCTION MACHINE SETTER Work Phone: Start: 07-16-2021 Mri brain brain stem w/o contrast material Jaxon Dahl MD Work Phone: Start: 07-16-2021 Blood count platelet automated Julio Cesar Law HOSPICE LIAISON-INDUCTION MACHINE SETTER Work Phone: Start: 07-15-2021 CARDIAC RHYTHM Other Ot her Start: 07-15-2021 End: 07-15-2021 Slctv cath intrnl carotid art angio intrcrnl art Bill Serrato MD Work Phone: Start: 07-15-2021 Creatinine blood Jaxon Dahl MD Work Phone: Start: 07-14-2021 DEVICE [...] Work Phone: Start: 07-12-2021 EXTRA MICRO Michael Spears To teresa Contreras MD Work Phone: Start: 07-12-2021 Urnls [...] count with white cell differential, automated Michael Contreras MD Work Phone: Start: 07-12-2021 EXTRA LAVENDER TOP Boom e Matt Buckner MD Work Phone: Start: 07-12-2021 EXTRA TUBES Satinder Matt Nguyễn MD Work Phone: Start: 07-12-2021 Fibrinogen [...] Work Phone: Start: 07-12-2021 RAINBOW DRAW Michael Contreras MD Work Phone: Start: 07-12-2021 Glucose [...] 04-30-2016 Follow Up Appt 6 months Ignacio Qaun MD Start: 04-30-2016 End: 04-30-2016 MM Ignacio Quan MD Start: 08-21-2015 End: 08-21-2015 Dietary management education, guidance, and counseling Lulu Rocha RN Start: 08-21-2015 End: 08-21-2015 Follow Up Appt 6 months Lulu adams PA-C Work Phone: Start: 08-21-2015 End: 08-21-2015 [facility] Lulu Moreno PA-C Work Phone: Start: 05-31-2015 [...] Work Phone: Viral antigen assay Dr. Montez wilkins [place] Work Phone: Plan of Treatment Date Care Activity Detail Author Start: 07-13-2026 Fasting lipid profile LIPID SCREENING [facility] Start: 07-13-2026 LIPID SCREEN LIPID SCREEN [facility] Start: 05-01-2024 Development of care plan [facility] Start: 05-01-2024 Patient discharge [facility] Start: 04-27-[address] [facility] Start: 04-24-2024 Developing a treatment plan [facility] Start: 04-24-2024 Development of care plan [facility] Start: 04-10-2024 [facility] Start: 04-10-2024 Consultation [facility] Start: 04-08-2024 Consultation [facility] Start: 04-08-2024 Consultation [facility] Start: 04-07-2024 Inhalation therapy procedure [facility] Start: 03-29-2024 Patient referral to dietitian [facility] Start: 03-28-[address] [facility] Start: 03-28-2024 [facility] Start: 03-28-2024 Development of care plan [facility] Start: 03-28-2024 Developing a treatment plan [facility] Start: 03-27-2024 Following clinical pathway protocol [facility] Start: 03-27-[address] [facility] Start: 03-27-2024 Following clinical pathway protocol [facility] Start: 03-27-2024 Contact precautions [facility] Start: 03-27-2024 Admission procedure [facility] Start: 03-27-2024 Measuring intake and output [facility] Start: 03-27-2024 Patient referral to dietitian [facility] Start: 03-27-2024 Referral to occupational therapist [facility] Start: 03-27-2024 Referral to service [facility] Start: 03-27-2024 Vital signs measurements [facility] Start: 03-27-2024 End: 03-27-2024 [facility] Start: 10-15-2022 Simple repair f/e/e/n/l/m 2.5cm/< RPR F/E/E/N/L/M 2.5 CM/< [facility] Start: 08-28-2022 Patient discharge [facility] Start: 08-28-2022 Referral to service [facility] Start: 08-26-2022 Referral to occupational therapist [facility] Start: 08-26-2022 Referral to [facility] Start: 08-25-2022 End: 08-26-2022 [facility] Start: 08-25-2022 Ambulation without limitation [facility] Start: 08-25-2022 Assessment of risk of venous thromboembolism [facility] Start: 08-25-2022 Insertion of catheter into peripheral vein [facility] Start: 08-25-2022 Providing care according to standard [facility] Start: 08-25-2022 Following clinical pathway protocol [facility] Start: 08-25-2022 Admission procedure [facility] Start: 08-25-2022 End: 08-25-2022 Blood culture [facility] Start: 12-04-2021 Patient referral [facility] Work Phone: Start: 11-13-2021 Influenza vaccination [facility] Start: 10-06-2021 Blood chemistry [facility] Work Phone: Start: 09-29-2021 Blood chemistry [facility] Work Phone: Start: 09-22-2021 Blood chemistry [facility] Work Phone: Start: 09-19-2021 Development of care plan [facility] Work Phone: Start: 09-19-2021 Patient discharge [facility] Work Phone: Start: 09-15-[address] [facility] Work Phone: Start: 09-15-2021 Blood chemistry [facility] Work Phone: Start: 09-12-2021 Development of care plan [facility] Work Phone: Start: 09-11-2021 Developing a treatment plan [facility] Work Phone: Start: 09-11-2021 [facility] Work Phone: Start: 09-10-2021 Verification routine [facility] Work Phone: Start: 09-10-2021 [facility] Work Phone: Start: 09-08-2021 [facility] Work Phone: Start: 09-08-2021 Following clinical pathway protocol [facility] Work Phone: Start: 09-08-2021 Consultation [facility] Work Phone: Start: 09-08-2021 Blood chemistry [facility] Work Phone: Start: 09-07-2021 [facility] Work Phone: Start: 09-07-2021 End: 09-07-2021 Blood culture [facility] Work Phone: Start: 09-07-2021 Patient discharge [facility] Work Phone: Start: 09-06-2021 [facility] Work Phone: Start: 08-19-2021 Patient referral to dietitian [facility] Work Phone: Start: 08-18-2021 Development of care plan [facility] Work Phone: Start: 08-18-[address] [facility] Work Phone: Start: 08-18-2021 Developing a treatment plan [facility] Work Phone: Start: 08-17-2021 Introduction of urinary catheter [facility] Work Phone: Start: 08-17-2021 Following clinical pathway protocol [facility] Work Phone: Start: 08-17-2021 Verification routine [facility] Work Phone: Start: 08-17-[address] [facility] Work Phone: Start: 08-17-2021 Admission procedure [facility] Work Phone: Start: 08-17-2021 Measuring intake and output [facility] Work Phone: Start: 08-17-2021 Patient referral to dietitian [facility] Work Phone: Start: 08-17-2021 Referral to occupational therapist [facility] Work Phone: Start: 08-17-2021 Referral to service [facility] Work Phone: Start: 08-17-2021 Vital signs measurements [facility] Work Phone: Start: 08-17-2021 End: 08-17-2021 [facility] Work Phone: Start: 08-17-2021 Patient discharge [facility] Work Phone: Start: 08-17-2021 Removal of urinary catheter [facility] Work Phone: Start: 08-07-2021 End: 08-07-2021 Patient encounter procedure 08/07/2021 Office Visit Neurology Sarah Aleman, HOSPICE LIAISON-INDUCTION MACHINE SETTER [address] [facility] [address] [place] [id number] Neurology [facility] Start: 08-06-2021 Measuring intake and output [facility] Work Phone: Start: 08-04-2021 Following clinical pathway protocol [facility] Work Phone: Start: 08-04-2021 [facility] Work Phone: Start: 08-04-2021 Catheterization of vein [facility] Work Phone: Start: 08-03-2021 [facility] Work Phone: Start: 08-01-2021 [facility] Work Phone: Start: 07-28-2021 End: 07-28-2021 Patient encounter procedure 07/28/2021 Office Visit Neurologic Surgery Bill Serrato MD [address] [place] [address] [facility] Start: 07-25-2021 [facility] Work Phone: Start: 07-25-2021 Referral to service [facility] Work Phone: Start: 07-25-2021 Urinary bladder training [facility] Work Phone: Start: 07-25-2021 Admission procedure [facility] Work Phone: Start: 07-25-2021 Referral to occupational therapist [facility] Work Phone: Start: 07-25-2021 Referral to service [facility] Work Phone: Start: 07-25-2021 Vital signs measurements [facility] Work Phone: Start: 07-25-2021 [facility] Work Phone: Start: 07-25-2021 Application of antithromboembolic stockings [facility] Work Phone: Start: 07-25-2021 Incentive spirometry [facility] Work Phone: Start: 07-25-2021 Patient referral to dietitian [facility] Work Phone: Start: 07-25-[address] [facility] Work Phone: Start: 07-22-2021 Cardiac monitoring [facility] Work Phone: Start: 07-22-2021 Catheterization of vein [facility] Work Phone: Start: 07-22-[address] [facility] Work Phone: Start: 07-22-2021 Elevation of head of bed [facility] Work Phone: Start: 07-22-2021 Implementation of planned interventions [facility] Work Phone: Start: 07-22-[address] [facility] Work Phone: Start: 07-22-2021 Oxygen therapy [facility] Work Phone: Start: 07-22-2021 [facility] Work Phone: Start: 07-22-2021 End: 07-22-2021 Patient discharge [facility] Work Phone: Start: 07-22-2021 CT angiography of head and neck CTA Head AND Neck W/ Contrast [facility] Work Phone: Start: 07-22-2021 Patient discharge [facility] Work Phone: Start: 07-21-2021 Introduction of urinary catheter [facility] Work Phone: Start: 07-20-2021 [facility] Work Phone: Start: 07-20-2021 [facility] Work Phone: Start: 07-18-2021 End: 07-19-2021 [facility] Work Phone: Start: 07-18-2021 Referral to occupational therapist [facility] Work Phone: Start: 07-18-2021 Referral to service [facility] Work Phone: Start: 07-18-[address] [facility] Work Phone: Start: 07-18-2021 Application of intermittent pneumatic compression device [facility] Work Phone: Start: 07-18-2021 Urinary bladder training [facility] Work Phone: Start: 07-18-2021 Admission procedure [facility] Work Phone: Start: 07-18-2021 Patient referral to dietitian [facility] Work Phone: Start: 07-18-2021 Vital signs measurements [facility] Work Phone: Start: 07-18-2021 Application of antithromboembolic stockings [facility] Work Phone: Start: 07-18-2021 Incentive spirometry [facility] Work Phone: Start: 07-12-2021 Bleeding precautions [facility] Work Phone: Start: 07-12-2021 Consultation [facility] Work Phone: Start: 07-12-2021 Oxygen therapy [facility] Work Phone: Start: 07-12-2021 [facility] Work Phone: Start: 03-15-2021 ADVANCE DIRECTIVE DISCUSSION ADVANCE DIRECTIVE DISCUSSION [facility] Start: 03-15-2021 DEPRESSION ASSESSMENT DEPRESSION ASSESSMENT [facility] Start: 02-08-2018 DIABETES SCREEN DIABETES SCREEN [facility] Start: 05-17-2017 End: 05-17-2017 Appointment Appointment [facility] [employer] Work Phone: Start: 12-22-2016 End: 12-22-2016 Appointment [facility] [employer] Work Phone: Start: 11-12-2016 End: 11-12-2016 Appointment Appointment [facility] [employer] Work Phone: Start: 11-12-2016 End: 11-12-2016 Follow Up Appt 6 months Follow Up Appt 6 months [employer] Work Phone: Start: 11-12-2016 End: 11-12-2016 MMM MMM [employer] Work Phone: Start: 04-30-2016 End: 04-30-2016 Follow Up Appt 6 months Follow Up Appt 6 months [employer] Work Phone: Start: 04-30-2016 End: 04-30-2016 MMM MMM [employer] Work Phone: Start: 03-20-2016 End: 03-20-2016 Urine culture, bacteria *C&S, Routine Bacteria [employer] Work Phone: Start: 02-28-2016 Colonoscopy COLORECTAL CANCER SCREENING DISCUSSION [facility] Start: 08-21-2015 End: 08-21-2015 Follow Up Appt 6 months Follow Up Appt 6 months [facility] Work Phone: Start: 08-21-2015 End: 08-21-2015 PFM PFM [employer] Work Phone: Start: 05-31-2015 End: 07-29-2015 Follow Up Appt 3 months Follow Up Appt 3 months [facility] [employer] Work Phone: Start: 05-31-2015 End: 07-29-2015 Pacer Clinic [facility] Work Phone: Start: 05-15-2015 End: 05-15-2015 Follow Up Appt 3 months Follow Up Appt 3 months [facility] [employer] Work Phone: Start: 05-15-2015 End: 05-15-2015 MMM MMM [employer] Work Phone: Start: 05-15-2015 End: 07-29-2015 Pacemaker Primary Insertion Pacemaker Primary Insertion Supply [facility] [employer] Work Phone: Start: 01-02-2015 End: 01-02-2015 Follow Up Appt 6 months Follow Up Appt 6 months [facility] Work Phone: Start: 01-02-2015 End: 01-02-2015 PFM PFM [facility] Work Phone: Start: 09-26-2014 End: 09-26-2014 Follow Up Appt 3 months Follow Up Appt 3 months [facility] Work Phone: Start: 09-26-2014 End: 09-26-2014 MMM MMM [facility] Work Phone: Start: 08-13-2014 End: 08-15-2014 Electrocardiogram, complete EKG (In office) [facility] Work Phone: Start: 07-30-2014 End: 07-29-2015 *BMP *BMP [facility] Work Phone: Start: 07-12-2014 End: 07-16-2014 *BMP *BMP [facility] Work Phone: Start: 07-12-2014 End: 07-29-2015 24 hour holter monitor 24 hour holter monitor [facility] Work Phone: Start: 07-12-2014 End: 07-20-2014 Echocardiography Echocardiogram (complete) [facility] Work Phone: Start: 07-12-2014 End: 07-27-2014 Electrocardiogram, complete EKG (In office) [facility] Work Phone: Start: 07-12-2014 End: 07-12-2014 Follow Up Appt 3 months Follow Up Appt 3 months [facility] Work Phone: Start: 07-12-2014 End: 07-20-2014 Nuclear stress test -exercise Nuclear stress test -exercise [facility] Work Phone: Start: 07-12-2014 End: 07-12-2014 PFM PFM [facility] Work Phone: Start: 06-14-2011 Pneumococcal vaccination PNEUMOCOCCAL VACCINE SERIES (1 - PCV) [facility] Start: 06-14-2011 PNEUMOCOCCAL: 65+ (1 - PCV) PNEUMOCOCCAL: 65+ (1 - PCV) [facility] Start: 1996 Prostate specific antigen measurement PROSTATE CANCER SCREENING DISCUSSION [facility] Start: 1996 SHINGRIX VACCINE (1 of 2) SHINGRIX VACCINE (1 of 2) [facility] Start: 1996 Zoster vaccine hzv live for subcutaneous use ZOSTER (SHINGLES) VACCINE (1 of 2) [facility] Start: 06-14-1991 COLOGUARD (FIT-DNA) COLOGUARD (FIT-DNA) [facility] Start: 06-14-1991 Colonoscopy COLONOSCOPY [facility] Start: 06-14-1991 COLORECTAL CANCER SCREENING COLORECTAL CANCER SCREENING [facility] Start: 06-14-[address] COLONOGRAPHY [facility] Start: 06-14-1991 FECAL OCCULT BLOOD FECAL OCCULT BLOOD [facility] Start: 06-14-1991 SIGMOIDOSCOPY SIGMOIDOSCOPY [facility] Start: 1965 Third diphtheria, tetanus and acellular pertussis (DTaP) vaccination TDAP (ADULT) [facility] Start: 1965 Urine microalbumin profile DTAP,TDAP,TD (1 - Tdap) [facility] Start: 1964 HEPATITIS C SCREENING HEPATITIS C SCREENING [facility] Start: 1964 Tetanus vaccination TETANUS [facility] Start: 06-14-1951 COVID-19 VACCINE (#1) COVID-19 VACCINE (#1) [facility] Start: 1945 COVID-19 VACCINE (#1) COVID-19 VACCINE (#1) [facility] Start: 1945 Hepatitis C antibody, confirmatory test HEPATITIS C VIRUS SCREENING [facility] Bacteria identified in Blood by Culture Blood Culture [facility] Work Phone: Bacteria identified in Blood by Culture Blood Culture [facility] Bacteria identified in Urine by Culture URINE CULTURE Microbiology STAT 07/22/2021 3:01 PM EDT [facility] Bacteria identified in Urine by Culture Urine Culture [facility] Work Phone: Blood chemistry [facility] Work Phone: Blood culture [facility] Work Phone: Brain natriuretic pe ptide measurement [facility] Work Phone: End: 07-15-2021 FLUORO IMAGING FOR NEURO ENDOVASCULAR [facility] Work Phone: Comment on above: One Time for 1 Occurrences starting 05/2021 until 07/15/2021 End: 07-13-2021 Interrogation of cardiac pacemaker PACEMAKER/ICD INTERROGATION Cardiac Services Routine One Time for 1 Occurrences starting 07/13/2021 until 07/13/2021 [facility] Work Phone: Comment on above: One Time for 1 Occurrences starting 03/2021 until 07/13/2021 End: 07-23-2021 Interrogation of cardiac pacemaker PACEMAKER/ICD INTERROGATION Cardiac Services Routine One Time for 1 Occurrences starting 07/23/2021 until 07/23/2021 [facility] Comment on above: One Time for 1 Occurrences starting 07/13 until 07/23/2021 Patient Education [facility] Work Phone: Patient referral [facility] Work Phone: POCT GLUCOSE, FINGER STICK POCT GLUCOSE, FINGER STICK Point of Care Testing STAT 07/23/2021 4:43 AM EDT [facility] End: 07-12-2021 Standard ECG [facility] Comment on above: One Time for 1 Occurrences starting 06/15 until 07/12/2021 End: 07-22-2021 Standard ECG [facility] Comment on above: One Time for 1 Occurrences starting 07/13 until 07/22/2021 Immunizations Immunization Date Immunization Notes Care Provider Juan arizmendi 06-11-2006 hepatitis A vaccine, pediatric/adolescent dosage, [address] Mallory Mcpherson Work Phone: [facility] Payers Date Payer Category Payer Self-pay [id number] 2012 Unknown [id number] [address] [facility] [id number] 2012 Unknown [id number] 2011 Medicare [id number]. [id number] 2011 Medicare [id number] 1945 Unknown [id number] 2.16. 840.1.530911.3.579.2.594 1945 Unknown [id number] 2.16. 840.1.919149.3.579.2.594 1945 Unknown [id number] 2.16. 840.1.856836.3.579.2.594 1946 Unknown [id number] 2.16.8 40.1.947698.3.579.2.627 1945 Unknown [id number] 2.16.8 40.1.629902.3.579.2.627 1946 Unknown [id number] 2.16.8 40.1.703669.3.579.2.627 1946 Unknown [id number] 2.16.8 40.1.061196.3.579.2.627 1945 Unknown [id number] 2.16.8 40.1.404100.3.579.2.627 1946 Unknown [id number] 2.16.8 40.1.152157.3.579.2.627 Unknown [id number] 2.16.8 40.1.618073.3.579.2.462 Unknown [id number] 2.16.8 40.1.458667.3.579.2.462 Unknown [id number] 2.16.8 40.1.893634.3.579.2.462 Unknown [id number] 2.16.8 40.1.692565.3.579.2.462 Unknown [id number] 2.16.8 40.1.159061.3.579.2.462 Unknown [id number] 2.16.8 40.1.765448.3.579.2.462 Unknown [id number] 2.16.8 40.1.648748.3.579.2.462 Unknown [id number] 2.16.8 40.1.413274.3.579.2.462 Unknown [id number] 2.16.8 40.1.683497.3.579.2.462 Unknown [id number] 2.16.8 40.1.613056.3.579.2.462 Unknown [id number] 2.16.8 40.1.122073.3.579.2.462 Unknown [id number] 2.16.8 40.1.449531.3.579.2.462 Unknown [id number] 2.16.8 40.1.191152.3.579.2.462 Unknown [id number] 2.16.8 40.1.616651.3.579.2.462 Unknown [id number] 2.16.8 40.1.493718.3.579.2.462 Unknown [id number] 2.16.8 40.1.321169.3.579.2.462 Unknown [id number] 2.16.8 40.1.709034.3.579.2.462 Unknown [id number] 2.16.8 40.1.083823.3.579.2.462 Unknown [id number] 2.16.8 40.1.827531.3.579.2.462 Unknown [id number] 2.16.8 40.1.781073.3.579.2.462 Unknown [id number] 2.16.8 40.1.908933.3.579.2.462 Unknown [id number] 2.16.8 40.1.225656.3.579.2.462 Unknown [id number] 2.16.8 40.1.601414.3.579.2.462 Unknown [id number] 2.16.8 40.1.744504.3.579.2.462 Unknown [id number] 2.16.8 40.1.061688.3.579.2.462 Unknown [id number] 2.16.8 40.1.888640.3.579.2.462 Unknown [id number] 2.16.8 40.1.415189.3.579.2.462 Unknown [id number] 2.16.8 40.1.003564.3.579.2.462 Unknown [id number] 2.16.8 40.1.270399.3.579.2.462 Unknown [id number] 2.16.8 40.1.724390.3.579.2.462 Unknown [id number] 2.16.8 40.1.442627.3.579.2.462 Unknown [id number] 2.16.8 40.1.558319.3.579.2.462 Unknown [id number] 2.16.8 40.1.306734.3.579.2.462 Unknown [id number] 2.16.8 40.1.187166.3.579.2.462 Unknown [id number] 2.16.8 40.1.349909.3.579.2.462 Unknown [id number] 2.16.8 40.1.070205.3.579.2.462 Unknown [id number] 2.16.8 40.1.805171.3.579.2.462 Unknown [id number] 2.16.8 40.1.746589.3.579.2.462 Unknown [id number] 2.16.8 40.1.890740.3.579.2.462 Unknown [id number] 2.16.8 40.1.803594.3.579.2.462 Unknown [id number] 2.16.8 40.1.604848.3.579.2.462 Social History Date Type Detail Facility Start: 02-28-2019 End: 09-13-2024 Never smoked tobacco (finding) 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 (finding) [facility] Start: 07-16-2021 Alcohol intake [facility] Start: 1945 Sex Assigned At Not on file O [facility] Start: 07-12-2021 End: 07-22-2021 Exposure to SARS-CoV-2 (event) Not sure [facility] Medical Equipment Procedure Code Equipment Code Equipment Origin al Text Equipment Identifier Dates Lead Pace Standa rd [employer] 3 - [id number] Start: 02-18-2015 Cardiac pacemaker, device (physical object) ([id number]) Pacer Lew Corbin [facility] - [id number] Start: 02-18-2015 BIOTRONIK ENTOVI S BA FDA Start: 02-18-2015 BIOTRONIK ENTOVI S BA FDA Start: 02-18-2015 BIOTRONIK ENTOVI S BA FDA Start: 02-18-2015 BIOTRONIK ENTOVI S BA FDA Start: 02-18-2015 BIOTRONIK ENTOVI S BA FDA Start: 02-18-2015 BIOTRONIK ENTOVI S -Sallie FDA Start: 02-18-[address]-T [...] be different from the original. 1.) 04/08/2016 Ingacio will be edu on bladder mgmt equipment, [...] Assessment Result Facility 05-01-2024 Functional status Chair [facility] Work Phone: 04-30-2024 Functional status Wheelchair;Lift Assist [facility] Work Phone: 08-28-2022 Functional status Ambulates [facility] Work Phone: 09-19-2021 Functional status Ambulates [facility] Work Phone: 09-11-2021 Functional status Chair [facility] Work Phone: 09-10-2021 Functional status Chair [facility] Work Phone: 09-07-2021 Functional status Ambulates [facility] Work Phone: 08-17-2021 Functional status Chair [facility] Work Phone: 07-22-2021 Functional status Chair [facility] Work Phone: Mental Status Date Assessment Result Facility 05-01-2024 Cognitive function Voice/Name [facility] Work Phone: 04-30-2024 Cognitive function Appropriate;[facility] Work Phone: 08-28-2022 Cognitive function Voice/Name [facility] Work Phone: 09-19-2021 Cognitive function Voice/Name [facility] Work Phone: 09-15-2021 Cognitive function Appropriate;Cooperativ [facility] Work Phone: 09-10-2021 Cognitive function Voice/Name [facility] Work Phone: 09-08-2021 Cognitive function [facility]ropriate[facility]: 09-07-2021 Cognitive function Level Of Cons ciousness Awake;Alert [facility] Work Phone: 09-06-2021 Cognitive function Voice/Name [facility] Work Phone: 09-05-2021 Cognitive function Appropriate;Cooperativ e [facility] Work Phone: 08-17-2021 Cognitive function Voice/Name [facility] Work Phone: 07-22-2021 Cognitive function Awake [facility] Work Phone: 07-21-2021 Cognitive function Voice/Name [facility] Work Phone: 07-12-2021 Cognitive function Voice/Name [facility] Work Phone: Clinical Notes 07-12-2021 to 08-16-2024 Note Date & Type Note Facility 08-16-2024 Procedure note [facility] 08-08-2024 Evaluation note Diagnosis Onset Date Resolution Aortic valve stenosis acute August 08, 2024 2:22pm Atrial fibrillation acute July 142024 2:22pm Bilateral lower extremity edema acute August 08, 2024 2 :22pm History of permanent cardiac pacemaker placement chronic August 08, 2024 2 :22pm CVA (cerebral vascular accident) resolved August 08, 2024 2 :22pm Essential hypertension deleted Ma y 2024 2:22pm History of permanent cardiac pacemaker placement chronic August 16, 2024 2 :59pm Sick sinus syndrome chronic August 16, 2024 2:59pm [facility] Work Phone: [phone])[phone] [facility]01-13-2025 [facility]01-13-2025 Evaluation note* Diagnosis Onset Date Resolution Status [...] 08, 2024 2 :22pm Essential hypertension deleted Ga 2024 2:22pm [facility] Work Phone: 1(873) 953-730901-13-2025 Evaluation note* Diagnosis Onset Date Resolution Status [...] Essential hypertension deleted Antonio y 2024 2:22pm History of permanent cardiac pacemaker placement chronic August 16 2:59pm Sick sinus syndrome chronic August 16, 2024 2:59pm [facility] Work Phone: 1(325) 314-305201-13-2025 [facility]01-09-2025 [facility]12-16-2024 [facility] 02-28-2024 [facility]12-05-2024 [facility]11-28-2024 Note. MICRO - Microbiology PROCEDURE: Urine Culture [*1] SOURCE: Urine, Clean Catch BODY SITE: COLLECTED DATE/TIME: 02/09/2024 15:12 EST RECEIVED DATE/TIME: 02/09/2024 18:45 EST START DATE/TIME: 02/09/2024 18:46 EST FREE TEXT SOURCE: FINAL REPORTS Final Report [] Verified Date/Time/Personnel: 02/10/2024 14:30 EST >100,000 cfu/ml Multiple bacterial morphotypes present. Probable Contamination. Suggest recollection if clinically indicated. Performing Locations *1: This test was performed at: [address], [facility] , [facility]09-15-2024 Note. MICRO - Microbiology PROCEDURE: Culture [...] Locations *1: This test was performed at: [facility], [address] [place] [address], [address] , [facility]09-15-2024 Note. MICRO - Microbiology PROCEDURE: Urine [...] Locations *1: This test was performed at: [address], [address]- , [facility]07-18-2024 Note. MICRO - Microbiology PROCEDURE: Urine [...] Locations *1: This test was performed at: [address], [address] , [facility] [place]09-08-2023 Note ORIGINAL EXAMINATION: XRAY VIEWS OF THE [...] Sign Date: 09/08/2023 12:00:24 PM Ordering Provider: [facility]04-28-2024 Note. MICRO - Microbiology PROCEDURE: Urine [...] Locations *1: This test was performed at: [address], [facility] , [facility]03-28-2023 Note. MICRO - Microbiology PROCEDURE: Urine Culture [...] Locations *1: This test was performed at: [facility], [facility] [address] [place] [address], [address]- , [facility])08-28-[address] Cantu [facility] August 28, 2022 12:37pm Note Date/Time August 28, 2022 11:4 3am [facility] Medical Records Department [address] [place] [address] Discharge Summary 08/28/22 1141 MR#: [id number] Acct: [id number] Name: IGNACIO AQUINO Rep #:[id number] : 1945 77 From: Marc Cantu MD PCP: Dr. Mallory Mcpherson, Status:ADM IN Location: [facility] [id number] Providers Date of Admission: 08/25/22 Date of [...] sent results pending WBC count remains elevated -47790Yvdtxvhj so far positive for nonsignificant growth of [...] 85.6 H, Lymph % (Auto) 5.2 L, Dickey % (Auto) 7.7, Eos % (Auto) 0.8, [...] Signed: Juaquin Arce MD at 15:06 EDT Reading Location ID and State: [facility] / [place] , Service support , D/C Instructions Discharge Diet: No restrictions [...] Health Service Charges/Coding Visit Charges Inpatient E&M: 50892 Disch Hosp >30min 08/28/22 1237 <Electronically signed by Marc Cantu MD> Cosigner Signature (if applicable): CC: Dr. Marc Cantu MD; Dr. Mallory Mcpherson DO~ Signed [facility] Work Phone: 1(391) 110-188706-16-[address] Cantu [facility] August 28, 2022 11:38am Note Date/Time August 28, 2022 7:37 am [facility] Medical Records Department [address] [place] [address] Progress Note - Hospitalist 08/28/22 0736 MR#: [id number] Acct: [id number] Name: IGNACIO AQUION Rep #:[id number] : 1945 77 From: Marc Cantu MD PCP: Dr. Mallory Mcpherson, DO Status:ADM IN Location: [place] [address]1 Reason for Visit Reason for Visit: Diagnoses Acute pancreatitis without necrosis or infection, unspecified (08/25/22) Urinary tract infection, site not specified (08/25/22) Subjective Subjective Seen admitted some symptomatic relief regarding his abdominal bloating. Plan isfor patient to be discharged home with home [...] 85.6 H, Lymph % (Auto) 5.2 L, Dickey % (Auto) 7.7, Eos % (Auto) 0.8, [...] sent results pending WBC count remains elevated -[id number] so far positive for nonsignificant growth of [...] documentation, 35Minutes Charges/Coding Visit Charges Inpatient E&M: 24222 Subs Hosp L2 08/28/22 1138 <Electronically signed by Marc Cantu MD> Cosigner Signature (if applicable): CC: ~ Signed [facility] Work Phone: 1(344) 553-779806-15-[address] Cantu [facility] August 27, 2022 8:13am Note Date/Time August 27, 2022 8:13 am [facility] Medical Records Department [address] [place] [address] Progress Note - Hospitalist 08/27/22 0811 MR#: [id number] Acct: [id number] Name: IGNACIO AQUINO Rep #:[id number] : 1945 77 From: Marc Cantu MD PCP: Dr. Mallory Mcpherson, DO Status:ADM IN Location: [place] [address] Reason for Visit Reason for Visit: Diagnoses [...] RDW Coeff of Donna 15.0 H, Plt Rucwe787, MPV 10.2, Immature Gran % (Auto) 0.800, Neut % (Auto) 87.5 H, Lymph % (Auto) 5.3 L, Dickey % (Auto) 6.1, Eos % (Auto) 0.1, [...] sent results pending WBC count remains elevated -12434Hqhbacdj so far positive for nonsignificant growth of [...] documentation, 35Minutes Charges/Coding Visit Charges Inpatient E&M: 13813 Subs Hosp L2 08/27/22 0813 <Electronically signed by Marc Cantu MD> Cosigner Signature (if applicable): CC: ~ Signed [facility] Work Phone: 1(202) 258-440406-14-[address] Cantu [facility] August 26, 2022 8:46am Note Date/Time August 26, 2022 7:30 am [facility] Medical Records Department [address] [place] [address] Progress Note - Hospitalist 08/26/22728 MR#: [id number] Acct: [id number] Name: IGNACIO AQUINO Rep #:[id number] : 1945 77 From: Marc Cantu MD PCP: Dr. Mallory Mcpherson, DO Status:ADM IN Location: [place] [address]1 Reason for Visit Reason for Visit: Diagnoses [...] 86.3 H, Lymph % (Auto) 5.4 L, Dickey % (Auto) 7.3, Eos % (Auto) 0.3, [...] Clarity Cloudy, Urine pH 6.0, Ur Specific [place] 1.020, Urine Protein 30 H, Urine Glucose [...] 83.3 H, Lymph % (Auto) 7.4 L, Dickey % (Auto) 8.0, Eos % (Auto) 0.4, [...] documentation, 50Minutes Charges/Coding Visit Charges Inpatient E&M: 85707 Subs Hosp L3 08/26/22 0846 <Electronically signed by Marc Cantu MD> Cosigner Signature (if applicable): CC: ~ Signed [facility] Work Phone: 1(461) 698-734006-13-[address] Zavala [facility] August 25, 2022 3:18pm Note Date/Time August 25, 2022 9:32 am [facility] Medical Records Department [address] [place] [address] Emergency Department Summary 08/25/22 MR#: [id number] Acct: [id number] Name: IGNACIO AQUINO Rep #:[id number] : 1945 77 From: Juaquin Zavala MD PCP: Dr. Mallory Mcpherson, DO Status:ADM [facility] History of Present Illness Chief Complaint: Weakness [...] states that his abdomen has been bloated. [facility] Medical History (Updated 08/25/22 @ 14:28 by [...] 86.3 H Lymph % (Auto) 5.4 L Dickey % (Auto) 7.3 Eos % (Auto) 0.3 [...] Clarity Cloudy Urine pH 6.0 Ur Specific [place] 1.020 Urine Protein 30 H Urine Glucose [...] (Auto) Neut % (Auto) Lymph % (Auto) Dickey % (Auto) Eos % (Auto) Baso % [...] Color Urine Clarity Urine pH Ur Specific [place] Urine Protein Urine Glucose (UA) Urine Ketones [...] infection), Pancreatitis, Nausea & vomiting Disposition Disposition: [facility] What to do if you have Problems For any increased pain, shortness of breath, bleeding, nausea or vomiting, chestpain, or any unexpected problems, contact your Primary Care Provider. Call [facility] ([phone]) or report to the closest Emergency Room. Call 911 if necessary. 08/25/22 1518 <Electronically signed by Juaquin Zavala MD> Cosigner Signature (if applicable): CC: Dr. Mallory Mcpherson, DO ~ Signed [facility] Work Phone: 1(282) 322-799206-13-2023 History and physical note Author Dr. Cantu [facility] August 25, 2022 12:23pm Note Date/Time August 25, 2022 12:2 3pm [facility] Medical Records Department [address] [place] [address] H&P Exam - Hospitalist 08/25/22 1217 MR#: [id number] Acct: [id number] Name: IGNACIO AQUINO Rep #:[id number] : 1945 77 From: Marc Cantu MD PCP: Dr. Mallory Mcpherson DO Status:REG ER Location: ED HPI - General General Date of Admission: 08/25/22 Date of Service: 08/25/22 Chief Complaint: Generalized weakness, fever and chills and nausea and vomiting HPI Narrative IGNACIO KENIA, is a 77 M with past medical [...] to regular nursing floor for further management [facility] Medical History AAA (abdominal aortic aneurysm) [...] 86.3 H, Lymph % (Auto) 5.4 L, Dickey % (Auto) 7.3, Eos % (Auto) 0.3, [...] Clarity Cloudy, Urine pH 6.0, Ur Specific [place] 1.020, Urine Protein 30 H, Urine Glucose [...] 18 minutes. Charges/Coding Visit Charges Inpatient E&M: 60939 Init Hosp L3 Procedures Hospitalists Procedures: 12606 Advncd Care Plan 30 Min 08/25/22 1223 <Electronically signed by Marc Cantu MD> Cosigner Signature (if applicable): CC: Dr. Marc Cantu MD; Dr. Mallory Mcpherson DO~ Signed [facility] Work Phone: [phone]) 402-143512-15-2022 NoteHNO ID: [id number] Author: Yumiko Marcum, OT/L Service: ? 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 Violation HX: no 5 Yr. MVA HX: no Handicap Parking Placard: YES 1. Ignacio Aquino self report indicates an awareness of: Weakness, incoordination, or limited motion in B legs Tingling or Numbness in: feet Fatigue, or poor endurance 2. Ignacio Mora Kenia expressed confidence regarding driving when driving alone locally prior to the stroke. 3. Ignacio Mora Kenia expressed no concerns regarding driving. OBJECTIVE MEASURES WITH LEVEL OF FUNCTION: SENSORIMOTOR ASSESSMENT: Hand dominance: Right Level of Function Relevant to I ADL, Community Mobility, and Driving: Right UE: Sufficient Left UE: Sufficient Constitutional Law Professor: Sufficient Right LE: Insufficient Left LE: Marginal [...] Lenses: None Distant Acuity: (more content not included)...[facility]12-15-20[facility] History of Present illness Narrative* Yumiko Marcum, OT/L - 02/26/2022 3:33 PM EST 829/Episode Visit Count: 1 Start of Care Date: [...] outpatient ST and PT currently 2x/week in [place] and that there is a significant support [...] Level of Education: High School Preferred Language: Bulgarian Right or Left Handed: Right Employment: (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 Violation [...] Driving: Right UE: Sufficient Left UE: Sufficient Constitutional Law Professor: Sufficient Right LE: Insufficient Left LE: Marginal [...] BASED ON SCREENING WHICH IS CONSISTENT WITH [facility] FOR VISUAL LLANES, HE CURRENTLY IS [...] impairment 20-28; Severe impairment [email or web address] Visual Scanning/Attention: [place] Making Part A (sec): 85 sec 50th percentile norm for age group: 70-79; Part A: 80 seconds, Part B: 196 seconds Mickie Clock Drawing Test: Ignacio Aquino correctly included 0/8 criteria for this test. 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 RECOMMENDATIONS: ADL/IADL Recommendations: ongoing moderate to maximal assist needed as has been the case for the past 7 years Driving Recommendations: REFRAIN FROM DRIVING NOT MEETING [facility] MINIMAL VISUAL FIELD REQUIREMENTS IN ADDITION TO NOT HAVING ADEQUATE PHYSICAL SKILLS FOR RETURN Guallpa's Visual Field Exam Requested: Yes when next formal eye exam Recommended Complete Eye Exam: as indicated by eyewear manufacturing tech Planned Interventions, Frequency, and Duration: Current Frequency: 1 visit Duration: 1 visit Total Number of Visits Planned: 0 Patient demonstrates good understanding of results but was very disappointed with same. The above resultswere discussed and agreed upon by patient/family. Billing: Total Treatment Time Minutes (timed/untimed) 105 minutes Evaluation - Moderate Complexity (00778) Self Care / Home Management (32848): 1:1 time: 45 minutes (3 units: 38-52 mins) Total time: 105 minutes ADRY Blue, CDRS, CDI Certified Dairy Machine Operator Farmworker Electrical And Radio Mock Up Mechanic [facility] Discharge summary Author Lulu Chappell [facility] November 27, 2021 2:58pm Note Date/Time November 27, 2021 2:58pm [facility] Occupational [facility] [address] [place] [address]. [address] [place] [address] / REHABILITATION SERVICES DISCHARGE SUMMARY MR#: [id number] Acct: [id number] Name: IGNACIO AQUINO Rep #: [id number] : 1945 76 From: Lulu Chappell OTR/L, CHT Referring Dr.: Dr. Mallory Mcpherson DO [...] pinch L- 19#. Lateral pinch R- 16#. interventional physiatrist test: R-elbow at side- 80# increase from [...] please fell free to call me at [phone]. Thank you for the referral of this patient. Sincerely, Lulu Chappell, OTR/Say, CHT <Electronically signed by Lulu Chappell OTR/Say CHT> 11/27/21 4589 CC: Dr. Mallory Mcpherson DO; Dr. Luis Carlos Gallardo MD ~ MK Signed [facility] Work Phone: 1(197) 452-379105-13-2022 Hospital course Narrative* Vinny Vargas MD - 07/25/2021 5:38 AM EDT DISCHARGE SUMMARY Name: Ignacio Aquino Age:76 y.o. Birthday: 1945 Admit Date: 07/22/2021 2:36 PM Discharge Date: 07/25/21 Discharge Unit: [facility], Service Gen Med 1 Admitting Physician: Shanika [...] during his recent hospital stay at [facility]. As you may know, Ignacio Aquino [...] XL Commonly known as: PROCARDIA XL nystatin 770132 UNIT/GM POWD powder Commonly known as: NYSTOP;MYCOSTATIN potassium chloride 20 MEQ tab ER tablet Commonly known as: K-DUR senna 8.6 MG TABS Commonly known as: SENOKOT Tamsulosin HCl 0.4 MG CAPS Commonly known as: FLOMAX take 1 capsule by mouth at bedtime. Follow Up Mallory Mcpherson DO [address] [facility] [place] [id number] Follow up Please call to schedule an appointment with your PCP within 7-10 days. Ignacio Quan MD [address] [facility] [id number] Heath Mcdowell MD [address] [facility] [place] [address] Physical Exam on the Date of Discharge: [...] moving both arms against gravity. Has good interventional physiatrist strength. Able to move ankle but unable [...] attending physician: No att. providers found p: [phone] f: [phone] PROCEDURES None IMAGING XR CHEST AP PORTABLE ED Final Result IMPRESSION: Cardiomegaly. No acute process. I personally viewed and interpreted these images and I have reviewed and approved this report. ABDOMEN/PELVIS WITHOUT CONTRAST Final Result IMPRESSION: 1. No acute findings in the abdomen or pelvis. STROKE HEAD-STROKE ALERT ONLY Final Result IMPRESSION: 1. Areas of relative hyperdensity in the left MCA and BRICK CLEANER territory involving the left basal ganglia, left [...] reports please contact Medical Information Management @ [phone] RESULTS / STUDIES PENDING AT DISCHARGE: Follow [...] PATIENT'S MEDICAL HOME AT DISCHARGE: Mallory Mcpherson [address] / [place] [address] CONSULTS DURING ADMISSION: IP CONSULT TO PHYSICAL [...] this patient. Shanika Jose MD, FACP, FAAP Stem Roller Or Crusher Operator of Clinical Medicine General Internal Medicine documented in this encounterOSU [facility] Note* Nursing Notes - Brook Montoya RN - 07/25/2021 5:33 AM EDT Report called to Blaire at [facility]. Patient discharged at this time via cart with EMS service. IV removed prior to discharge. All paperwork faxed to facility. [facility]05-13-2022 Miscellaneous Notes* Nursing Notes - Brook Montoya RN - 07/25/2021 5:33 AM EDT Report called to Blaire at [facility]. Patient discharged at this time [...] necessary for functional mobility. 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 Pat dry. Shake Touchless Care Zinc Teaberry well. Teaberry 4-6 inches away from skin. Leave open to air. Teaberry 2x day and prn with incontinence episodes. Please order product from distribution item number #[id number] Bilateral heels- Please suspend heels off bed [...] Discuss with Specialist Place a consult in [facility] for the WOCN if Candace Score is ? 12 ( high or severe risk) Discuss with RIVET TOSSER or Unit Skin [facility] The STAND skin bundle is an evidence-based prevention bundle designed to prevent pressure injuries in patients who are at risk for developing a pressure-related injury. For more information related to STAND Skin Bundle: [email or web address] eet.pdf See image(s) below: Candace Skin Assessment: [...] N/A; Surgeon: Colton Daly MD; Location: [facility] CERVICAL FUSION C6/C7 Wound Documentation: 07/23/21 1609 Wound (Adult, Pediatric) 07/23/21629 Bilateral gluteal other (see comments) Placement Date/Time: 07/23/21629 Present On Admission : yes Wound #: [...] notified of assessment and plan. Please page #[phone] or reconsult with any further needs. * [...] Tadeo - 07/23/2021 2:52 PM EDT Problem: PUBLIC HEALTH WORKER - Language Goal: Establish Yes/No Description: Patient [...] Daily Progress Note Patient: Ignacio Aquino, 1945, [id number] Medical Student: Merary Heredia, MS4 Assessment/Plan: Ignacio [...] Status: Full Code Disposition: Discharge back to [facility] as soon as transportation can [...] moving both arms against gravity. Has good interventional physiatrist strength. Able to move ankle but unable to move toes. Data Review: Labs WBC/Hgb/Hct/Plts: 8.34/13.9/40.3/185 (07/23 442) Na/K+/Phos/Mg/Ca: 140/3.6/3.1/2.0/8.7 (07/22 1501-07/23 442) Bun/Creat/Cl/CO2/Glucose: 23/0.90/111/22/84 (07/23 442) Ptt/Pt/Inr: 28.6/15.2/1.2 (07/23 442) 05/10/22 Urine Analysis -Absent bacteria, small amount of blood in urine, small amount of leukocyte esterase, 6-9 WBC, urobilinogen 2.0 -Blood Gas: pH 7.34, pCO2 43, HCO3 23 -TSH 5.620, T4 Free: 1.19 Imaging 07/22/21 CT Stroke Head Alert IMPRESSION: 1. Areas of relative hyperdensity in the left MCA and BRICK CLEANER territory involving the left basal ganglia, left [...] MD * Plan of Care - Viridiana Gary, PT - 07/23/2021 11:24 AM EDT Problem: [...] mobility. Outcome: Ongoing * Nursing Notes - Catrachito Pedraza RN - 07/23/2021 6:52 AM EDT [...] skin check completed by this RN with full charge bookkeeper Vicenta. * Certification - Christophe Stein MD - 07/22/2021 6:43 PM EDT I certify that this patient requires inpatient services at this time. I anticipate the expected length of stay will include at least two midnights. Inpatient services are due to the following medicalconcerns altered mental status in setting of recent stroke. Plans for post hospitalization care will be discharge to intermediate facility. Christophe Stein MD MPH Internal Medicine PGY2 [id number] documented in this encounterOSU [facility]-12-[facility] History of Present illness Narrative* KEO Ruiz - 07/24/2021 3:21 PM EDT The following note reflects a discharge planned for Wednesday, 07/25 between 8914-1733: Social Work Final Discharge Plan and Transportation Final Discharge Planning Discharge Disposition: Inpatient Rehab Facility Services at Discharge: Speech Therapy, Group Home, Physical Therapy, Occupational Therapy Community Agency Name(s) For Handoff: [facility] IPR Name For Handoff: 4th floor IPR Phone For Handoff: [phone] Fax For Handoff: [phone] Plan Plan: Discharge to [facility] Patient/Family In Agreement With Plan: yes Transportation Name of Transport Company: Other (Comment) ([facility] [phone]) ETA of Ambulance: [id number] Ambulance Arrived: No Transfer Mode: gurney Mode of Transfer: ambulance, BLS Accompanied By: EMS Patient medically stable for discharge per physician/medical team. SW confirmed with [place] that they are able to accept the patient on . Insurance pre- certification is not required. arranged transport as indicated above, ETA is [phone]. The patient has no specialized equipment needs for transportation. AVS/ANALISA completed from a SW standpoint. SW updated the bedside RN, CCM, facility and patient/healthcare sales representative of the discharge plan and transport time. Patient/Mint Wafer Depositor remain in agreement with the discharge plan. Bedside RN to call report and fax AVS/ANALISA. Ambulance form left at the unit control clerk desk with a request for a printed transfer report. Discharge Instruction for Bedside RN: 1. Confirm the Ambulatory Order is in the ANALISA. 2. Print the ANALISA and AVS. 3. Print the Discharge Summary for facilities (if available). 4. Fax ANALISA, AVS and Discharge Summary (when applicable) to agency or facility. 5. Call the agency or facility for report. LIYAH Torres, FINANCIAL ADMINISTRATIVE ASSISTANT Medical Social Work * Vinny Vargas MD - 07/24/2021 11:33 AM EDT Internal Medicine Daily Progress Note Patient: Ignacio Aquino, 1945, [id number] Medical Student: Merary Heredia, MS4 Assessment/Plan: Ignacio [...] Status: Full Code Disposition: Discharge back to [facility] in AM. Subjective/Interval History: NAEON. updated at [...] room air (07/24/21 1013) Flow (L/min): 0 (07/23/21 2125) Gen: NAD, well-appearing HENT: Normocephalic atraumatic, extraocular [...] moving both arms against gravity. Has good interventional physiatrist strength. Able to move ankle but unable [...] relative hyperdensity in the left MCA and BRICK CLEANER territory involving the left basal ganglia, left [...] minutes with more than 50% spent on counseling/svmf-ka-bcyc with the patient and/or family Shanika Jose MD, FACP, FAAP Stem Roller Or Crusher Operator of Clinical Medicine General Internal Medicine * Marcy Victoria RN - 07/23/2021 5:13 PM EDT Discharge Planning Patient Assessment Admission Assessment Patient Assessment Completed: Yes Anticipated discharge disposition: Group Home Facility (vs IP Rehab) Reason for Admission: stroke workup Is the patient able to participate in the assessment?: No Explanation of why patient is unable to participate: AMS Information source: Spouse Information Source Name/Contact: Zach Aquino Demographics Verified and Updated: Yes Has the patient been admitted to any hospital in the last 30 days?: Transferred From Outside Hospital ([facility]) Advanced Care Planning Has the patient completed Advance Directives?: Completed, Not Available in Medical Record Copy of Advance Directives was requested?: Yes Advance Directives Requested From: spouse Legal Next of Kin Does the patient have a Guardian?: No Spouse: Yes Name and Contact information: Zach Aquino [phone] Adult Child(meme), List All Adult Children: Yes Name and Contact information: Bartolo Kenia, Bulmaro Aquino, [place] Kenia (all #s in demographics) Would you like [...] Is the patient from a facility or longterm?: No Patient lives with: Spouse or Partner Living Environment: House How many steps does the patient have to navigate to enter or inside the home? : ramp Does the patient have a first floor set-up with bed and bathroom?: Yes Patient Caregiving Responsibilities: Self Patient-identified caregiver/support network: Family, Friends, Islam Who does the patient identify as a [...] consults?: Yes Select consult type: PT, OT, PUBLIC HEALTH WORKER, Social Work Does the patient's home require any home modifications for discharge? : No CM to recommend therapy or other consults? : No Medication Management Does the patient have prescription insurance coverage? : No (spouse says they use any discount cards that their pharmacy offers if needed) Is the patient on Anticoagulation? 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 : No Employed?: Yes Coping/Stress Concerns about patient s coping and stress?: Unable to Assess Concerns about patient s caregiver s coping and stress?: No Values and Beliefs Cultural or cheondoism practices that may impact discharge planning and/or medical care?: No Initial Discharge Planning Anticipated discharge disposition: Group Home Facility (vs IP Rehab) Transportation Available for Discharge: Ambulance Anticipated DME: none Anticipated Services at Discharge: Physical Therapy, Occupational Therapy, Group Home, Speech Therapy, Outpatient follow up Patient Assessment Completed: Yes Risk of Readmission: 5.9 Category Reference: High:16-100 Mod-High:10-16 Mod-Low: 5-10 Low: 0-5 Patient is expected to dc to previous facility in [place]. [facility] [address] [phone] SW consulted and following for return. Marcy GOVEA, RN Clinical Welder Apprentice Arc [phone] Available on secure chat. Weekend Welder Apprentice Arc and Social Work Contacts [facility]: CM: [phone] / SW: [phone] Endy: CM: [phone] / SW: [phone] Javi: CM: [phone] / SW [phone] Nas CALL (PCU/MICU only): CM: [phone] / SW: [phone] * Vinny Vargas MD - 07/23/2021 4:06 PM EDT Internal Medicine Daily Progress Note Patient: Ignacio Aquino, 1945, [id number] Medical Student: Merary Heredia MS4 Assessment/Plan: Ignacio [...] Status: Full Code Disposition: Discharge back to [facility] as soon as transportation can be arranged Subjective/Interval History: NAEON. Feeling better, still nonsensical speech at times. Answers some questions. Follows commands inconsistently. Objective: Vitals: 07/23/21 1447 BP: 160/83 Pulse: 61 Resp: 18 Temp: 97.2 F (36.2 C) O2 Device: room air (07/23/21 144) Gen: NAD, well-appearing HENT: Normocephalic atraumatic, extraocular [...] moving both arms against gravity. Has good interventional physiatrist strength. Able to move ankle but unable [...] relative hyperdensity in the left MCA and BRICK CLEANER territory involving the left basal ganglia, left [...] minutes with more than 50% spent on counseling/mhkq-ch-rsjy with the patient and/or family Shanika Jose MD, FACP, FAAP Stem Roller Or Crusher Operator of Clinical Medicine General Internal Medicine * Krystyna Meade, OT - 07/23/2021 3:56 PM EDT Acute [...] Pain: denies pain/discomfort Home Setting Residence: House, Group Home Lives With: spouse First floor setup: bedroom [...] IADL History IADLs: needs assist Primary Language: Bulgarian Objective/Observation: Vitals/Vitals Responses to Treatment: No signs/ [...] of Objects: mild impairment Outcome Score(s): CURRENT AM-[facility] Daily Activity Inpatient Short Form Putting on/Taking Off Lower Body Clothin - Total Assistance Bathin - A Lot of Assistance Toiletin - Total Assistance Putting on/Taking Off Upper Body Clothin - A Lot of Assistance Groomin - A Lot of Assistance Eatin - A Lot of Assistance CURRENT AM-PAC Activity Raw Score: 10 CURRENT AM-PAC Activity Functional Limitation/Modifier: 74.70% Currently Impaired in [...] - 07/23/2021 3:03 PM EDT Acute Care PUBLIC HEALTH WORKER Speech/Language/Cognitive Evaluation Discharge Recommendations: Based on the below outcome measures/assessment score(s) and PUBLIC HEALTH WORKER clinicaljudgment, discharge destination recommendation is: Group Home Facility return Acute PUBLIC HEALTH WORKER Outcomes Tracking Communicate basic wants and needs?: [...] on 07/12/21. Patient would benefit from ongoing PUBLIC HEALTH WORKER services to address noted deficits. Plan to [...] name of food item he wants. Prior PUBLIC HEALTH WORKER history: 07/12/21 Speech-Language Evaluation: Ignacio Aquino presents with non fluent asphasia, most consistent with Wernicke's aphasia. These deficits result in functional limitations in communicating wants and needs. Throughout evaluation, pt consistently counting and stating numbers, as well as intermittently speaking in [place] (per family at bedside, reports that he is not making sense in [place] either). Able to complete automatic speech task [...] or apraxia. Pt would benefit from ongoing PUBLIC HEALTH WORKER services to address noted deficits and assist pt in communicating wants and needs Prior Level of Function: Residence: House, Group Home Lives With: spouse Respiratory Status: Room Air [...] VOCAL PARAMETERS: Task: Vocal Quality WDL Acute PUBLIC HEALTH WORKER Goals Plan of Care by JUAN Tadeo at 07/23/2021 2:52 PM Version 1 of 1 Problem: PUBLIC HEALTH WORKER - Language Goal: Establish Yes/No Description: Patient [...] the current Speech Therapy Discharge Summary * Afua Sagastume, PUBLIC HEALTH WORKER - 07/23/2021 2:54 PM EDT Acute Care Speech-Language Pathology Clinical Swallow Evaluation Diet recommendation: Recommended Method of Nutrition: PO Recommended Diet Grade: regular Recommended Liquid Consistency: liquid- thin (IDDSI 0) Recommended Medication Administration (as appropriate per MD): Per patient preference Type of Cues/Supervision: none Assistance: independent Discharge Recommendations: Based on the below outcome measures/assessment score(s) and PUBLIC HEALTH WORKER clinicaljudgment, discharge destination recommendation is: Group Home Facility return Current therapy frequency recommendation in acute care: Swallow Therapy Frequency: no therapy warranted Acute PUBLIC HEALTH WORKER Outcomes Tracking Communicate basic wants and needs?: [...] Laterality: N/A; Surgeon: Bill Serrato MD; Location: [facility] MAIN OR PACEMAKER PLACEMENT N/A 02/18/2015 Laterality: N/A; Surgeon: Colton Daly MD; Location: [facility] CERVICAL FUSION C6/C7 Pain: General Pain Documentation [...] name of food item he wants. Prior PUBLIC HEALTH WORKER history: 07/12/21 Speech-Language Evaluation: Ignacio Aquino presents with non fluent asphasia, most consistent with Wernicke's aphasia. These deficits result in functional limitations in communicating wants and needs. Throughout evaluation, pt consistently counting and stating numbers, as well as intermittently speaking in [place] (per family at bedside, reports that he is not making sense in [place] either). Able to complete automatic speech task [...] or apraxia. Pt would benefit from ongoing PUBLIC HEALTH WORKER services to address noted deficits and assist pt in communicating wants and needs Current Method of Nutrition: Route of Nutrition: No alternative means Respiratory Status: O2 Sat (%): 96 % (07/23 1447) O2 Device: room air (07/23 1443) Subjective: Patient was seen at bedside, alert [...] Ice, Thin Teaspoon, Straw, Consecutive Drinks, Self-fed, PUBLIC HEALTH WORKER-fed ~5 oz Dysphagia- pureed (IDDSI 4) Teaspoon, PUBLIC HEALTH WORKER-fed 5x tsp Regular solid Self-fed 1 cracker [...] aspiration over the course of the session. Cecil Swallow Screen: (administered by: RN) Cecil Swallow Screening Screening Exclusion Criteria: none, continue with Emma Swallow Screening Cognitive Screen: Orientation: disoriented Cognitive Screen: Command Following: unable to to follow commands Oral Motor Function : oral motor dysfunction 3 oz. Water Swallow Challenge : deferred per clinical judgement Cecil Swallow Screening Result: failed=NPO Voice and Swallow [...] recommendations. Goal met Speech Language Pathologist: Afua Sagastume, PUBLIC HEALTH WORKER, BCS-S Board Certified Specialist in Swallowing and Swallowing Disorders Available via Idibon Chat Time In: 1345 Time Out: 1420 [...] Barriers: Transport Current Referrals and Status 1. [facility] (reserved) Patient is reserved at [facility]. [facility] advised this that they can admit patient when medically ready. SW will arrange ambulance transport. SW updated the team. Addendum 1600 SW scheduled the first available transport for Wednesday, 07/28 between 7800-8703 via [facility]. SW updated family, team, and IPR. LIYAH Torres, FINANCIAL ADMINISTRATIVE ASSISTANT Medical Social Work * Viridiana Gary PT - 07/23/2021 11:31 AM EDT Acute Physical Therapy Evaluation Prior to Admission [facility] score(s): PRIOR LEVEL AM-PAC Mobility Raw Score: 21 Current AM-PAC score(s): CURRENT AM-PAC Mobility Raw Score: 7 Based on the above AM-PAC score(s) and PT clinical judgment, patient is a good candidate for discharge to Group Home Facility Discharge Barriers: Patient needs assistance with [...] pain/discomfort not present Home Setting Residence: House, Group Home Lives With: spouse First floor setup: bedroom [...] Responses to Treatment: vital signs stable per workforce staffing advisor and pt tolerated session well Cognition Overall [...] WFL (visible areas) Edema Edema: present Location: [facility]'s Mobility Assessment: Rolling/Turning Mobility Kiana Level: Rolling/Turning: maximum assist (25% patient effort) Scooting Bridging Mobility Kiana Level: Scooting/Bridging: dependent (less than 25% patient effort) Physical Assist: Scooting/Bridgin person assist Supine to Sit Mobility Kiana Level: Supine->Sit: maximum assist (25% patient effort) Physical Assist: Supine->Sit: 2 person assist Bed Features/Set-up: Supine->Sit: Use of bed rail, Head of bed elevated Sit to Supine Mobility Kiana Level: Sit->Supine: maximum assist (25% patient effort) Physical Assist: Sit->Supine: 2 person assist Bed Features/Set-up: Sit->Supine: Flat Balance: Sitting Balance Static Sitting-Level of Assistance: Contact guard Dynamic Sitting-Level of Assistance: Moderate assistance Transfer Assessment: Sit to Stand Transfer Kiana Level: Sit->Stand: (attempted with max assist x 2 but unable to achieve more than 1/4 standing) Outcome Score(s): CURRENT [facility] Basic Mobility Inpatient Short Form Turning over in bed: 2 - A Lot of Assistance Sitting/standing from chair: 1 - Total Assistance Moving from lying on back to sittin - Total Assistance Moving to and from bed to chair: 1 - Total Assistance Walk in hospital room: 1 - Total Assistance Climbing 3-5 steps with a railin - Total Assistance CURRENT [facility] Mobility Raw Score: 7 CURRENT [facility] Mobility Functional Limitation/Modifier: 92.36% Currently Impaired in Basic Mobility- CM Assessment & Plan: Patient was admitted for [facility] of recent L MCA stroke s/p tPA [...] (Moderate) Clinical Decision Making: Moderate Time In: 08 Time Out: 08 Total Visit Time: 16 minutes Total Treatment [...] Physical Therapy Discharge Summary. * Mandi Muro APRN-INDUCTION MACHINE SETTER - 07/23/2021 7:24 AM EDT Neurovascular update: [...] BART Galvan 07/23/2021 11:39 AM * John Roach [facility] - 07/22/2021 8:53 PM EDT Department of Pharmacy Admission Medication Reconciliation Note Patient: Ignacio Aquino Room/Bed: E038/E038 The patient's allergies were not assessed at this time, and I have reviewed the patient's home medication list with the following sources records from [facility] (scanned into [employer]) & contacted [facility] to confirm current gabapentin dosing strategy. All changes to the home medication list have been updated in [facility]HIS. Updated HAND PAINT MIXER Med List: Prior to Admission Medications Prescriptions [...] 3 mg by mouth at bedtime.. nystatin 383652 UNIT/GM Powder powder Sig: Apply 1 Application [...] me with any further questions. John Roach, PharmD, BRYSON, BCCCP, BCPS Specialty Practice Pharmacist - Emergency Medicine Pager: [phone] Portable Phone: [phone] Date/Time: 07/22/2021 8:53 PM Time Spent: 20 minutes [facility]* Plan of Care - Catrachito Pedraza [...] necessary for functional mobility. Outcome: Ongoing Problem: PUBLIC HEALTH WORKER - Language Goal: Establish Yes/No Description: Patient [...] discharge to SNF when clinically appropriate [facility]05-11-2022 Note* Nursing Notes - Ayla Guerrero RN [...] wipes. Pat dry. Shake Touchless Care Zinc Teaberry well. Teaberry 4-6 inches away from skin. Leave open to air. Teaberry 2x day and prn with incontinence episodes. Please order product from distribution item number #[id number] Bilateral heels- Please suspend heels off bed [...] Discuss with Specialist Place a consult in [facility] for the WOCN if Candace Score is ? 12 ( high or severe risk) Discuss with RIVET TOSSER or Unit Skin [place] The STAND skin bundle is an evidence-based prevention bundle designed to prevent pressure injuries in patients who are at risk for developing a pressure-related injury. For more information related to STAND Skin Bundle: [email or web address]://[email or web address]/departments/WoundManagement/Documents/StandSkinTipSh eet.pdf See image(s) below: Candace Skin Assessment: [...] N/A; Surgeon: Colton Daly MD; Location[facility] CERVICAL FUSION C6/C7 Wound Documentation: 07/23/21 1609 Wound (Adult, Pediatric) 07/23/21 0630 Bilateral gluteal other (see comments) Placement Date/Time: 07/23/21629 Present On Admission : yes Wound #: [...] notified of assessment and plan. Please page #[phone] or reconsult with any further needs. [facility]05-11-[facility] Note* Plan of Care - Krystyna Majano [...] ability to safely complete ADLs. Outcome: Ongoing [facility]-11[facility]* Plan of Care - JUAN Tadeo - 07/23/2021 2:52 PM EDT Problem: PUBLIC HEALTH WORKER - Language Goal: Establish Yes/No Description: Patient [...] and ability to direct care. Outcome: Ongoing [facility]-11-[facility] Note* Plan of Care - Patti Lopez RN - 07/23/2021 11:46 AM EDT Problem: Patient Care Overview Goal: Plan of Care Review Outcome: Ongoing Goal: Individualization & Mutuality Outcome: Ongoing Goal: Discharge Needs Assessment Outcome: Ongoing Goal: Interdisciplinary Rounds/Family Conf Outcome: Ongoing [facility]-11-20[facility] Note* Medical Student - Merary Heredia - 07/23/2021 11:36 AM EDTSummary: Progress Note Internal Medicine Daily Progress Note Patient: Ignacio Aquino, 1945, [id number] Medical Student: Merary Heredia, MS4 Assessment/Plan: Ignacio [...] citalopram DVT PPX: SCDs, to start Eliquis 5/14 Code Status: Full Code Disposition: Discharge back to [facility] as soon as transportation can [...] moving both arms against gravity. Has good interventional physiatrist strength. Able to move ankle but unable [...] relative hyperdensity in the left MCA and BRICK CLEANER territory involving the left basal ganglia, left [...] 07/23/2021 for final plan. Diana Decker MD [facility]-11[facility] Note* Plan of Care - Viridiana Gary [...] ROM, necessary for functional mobility. Outcome: Ongoing [facility]-11[facility] Note* Nursing Notes - Catrachito Pedraza RN - 07/23/2021 6:52 AM EDT [...] skin check completed by this RN with full charge bookkeeper Vicenta. [facility] Emergency department Note* Ivan Hubbard RN - 07/23/2021 5:53 AM EDT Notified Physician ref Pt's BP. Waiting for response [facility] Emergency department Note* Ivan Hubbard RN - 07/23/2021 5:53 AM EDT Notified Physician ref Pt's BP. Waiting for response * Gina Jesus RN - 07/23/2021 4:06 AM EDT Bed: E043 Expected date: Expected time: Means of arrival: Comments: 38 * Nelia Hatch RN - 07/22/2021 8:23 PM EDT [phone] Bartolo Aquino Son * Kleber Scott MD [...] Scott MD PhD PGY2 Emergency Medicine [facility] [id number] Kleber Scott MD Resident 07/22/212019 * KEO Trevino - 07/22/2021 2:40 PM EDT Patient presents as level II stroke alert via [facility] from [facility]. Per transporting medics, patient's spouse and son were present at outside hospital and are expected to arrive today. Family contact info on file if needed. SW will continue to follow. KEO Trevino [phone] * Michael Roblero MD - 07/22/2021 2:39 PM EDT ED Teaching Attending Attestation AND PLAN Briefly, Ignacio Aquino is a 76 y.o. patient with history as below presenting with a change in mental status, coming in on transfer from another hospital, initially from a rehab facility of [facility], whereshe was convalescing after a CVA with [...] N/A; Surgeon: Colton Daly MD; Location: [facility] CERVICAL FUSION C6/C7 Vitals: 07/22/21 1433 Height: [...] examined the patient. I agree with my housekeeping lead's documented plan except for the changes in plan outlined above by me. Michael Roblero MD 07/22/2021 2:39 PM [phone] Michael Roblero MD 07/23/21 1115 * Sarai [...] Laterality: N/A; Surgeon: Colton Daly MD; [facility]: [facility] CERVICAL FUSION C6/C7 CURRENT MEDICATIONS Current Outpatient [...] Can by mouth 4 times daily. nystatin [id number] UNIT/GM Powder 1 Application by Topical route [...] word substitutions. Mirza Ritchie MD Resident 07/22/21 0956 documented [facility] Emergency department Note* Gina Jesus RN - 07/23/2021 4:06 AM EDT Bed: E043 Expected date: Expected time: Means of arrival: Comments: 38 [facility] Emergency department Note* Nelia Hatch RN - 07/22/2021 8:23 PM EDT [phone] Bartolo Aquino Son [facility]05-10-[facility] Physician Emergency department Note* Kleber Scott MD [...] Scott MD PhD PGY2 Emergency Medicine [facility] [id number] Kleber Scott MD Resident 07/22/212019 [facility] Work Phone: 1(227) 822-526405-10-2022 Note* Certification - Christophe Stein MD - 07/22/2021 6:43 PM EDT I certify that this patient requires inpatient services at this time. I anticipate the expected length of stay will include at least two midnights. Inpatient services are due to the following medicalconcerns altered mental status in setting of recent stroke. Plans for post hospitalization care will be discharge to intermediate facility. Christophe Stein MD MPH Internal Medicine PGY2 [phone] [facility]05-10-2022 History and physical note* Christophe Stein MD - 07/22/2021 4:56 PM EDT Admission History & Physical Patient: Ignacio Aquino, 1945, [id number] Physician: Christophe Stein MD, PGY2, Pager [phone], [facility] service Date of face to face patient encounter: 07/22/21 Chief Complaint: Altered mental status History Of Present Illness: Ignacio Aqiuno is a 76 y.o. male with a [...] Laterality: N/A; Surgeon: Bill Serrato MD; Location: [facility] MAIN OR PACEMAKER PLACEMENT N/A 02/18/2015 Laterality: N/A; Surgeon: Colton Daly MD; Location: [facility] CERVICAL FUSION C6/C7 Social History: Social History [...] 3 mg by mouth at bedtime.. nystatin 661277 UNIT/GM Powder No No Si Application by [...] relative hyperdensity in the left MCA and BRICK CLEANER territory involving the left basal ganglia, left [...] for infection. Of note, pt speaks [place] in addition to Bulgarian; does not believe his vocalizations were c/w [...] Med/Surg Staffed with Dr. Jose Signed, Christophe Stein [facility] Internal Medicine PGY-2 Pager [phone] Associated attestation - Shanika Jose MD - [...] minutes with more than 50% spent on counseling/sqet-tq-jugd with the patient and/or family Shanika Jose MD, FACP, FAAP Stem Roller Or Crusher Operator of Clinical Medicine General Internal Medicine [facility] Work Phone: [phone]) 245-809005-10-2022 History and physical note* Christophe Stein MD - 07/22/2021 4:56 PM EDT Admission History & Physical Patient: Ignacio Aquino, 1945, [id number] Physician: Christophe Stein MD, PGY2, Pager [phone], [facility] service Date of face to face patient [...] a mechanical lift this past week at [facility]. This morning on first assessment by nurse [...] N/A; Surgeon: Colton Daly MD; [facility] CERVICAL FUSION C6/C7 Social History: Social History [...] 3 mg by mouth at bedtime.. nystatin 341867 UNIT/GM Powder No No Si Application by [...] relative hyperdensity in the left MCA and BRICK CLEANER territory involving the left basal ganglia, left [...] for infection. Of note, pt speaks [place] in addition to [place]ian; does not believe his vocalizations were c/w [...] escitalopram BPH: tamsulosin last addressed in note 2015, no recent fill history; [facility], no recent fill history, will not order meds today PPX: to start Eliquis 07/26 Code: Full Code Dispo: Admit to Med/Surg Staffed with Dr. Damon Arteaga, Christophe Stein [facility] Internal Medicine PGY-2 Pager [phone] Associated attestation - Shanika Jose MD - [...] minutes with more than 50% spent on counseling/wcao-no-crct with the patient and/or family Shanika Jose MD, FACP, FAAP Stem Roller Or Crusher Operator of Clinical Medicine General Internal Medicine documented in this encounterGlenbeigh Hospital05-10-2022 NoteAcute Coronary Syndrome (ACS): Initial Evaluation and Management: [email or web address]/Documents/Guidelines/Acute%20Coronary%20Sy ndrome.pdf#search=troponin [facility]05-10-2022 Consult note* Марина Felix APRN-DIVINE - 07/22/2021 2:40 PM EDT Neurovascular Evaluation Note Evaluation Date: 07/22/2021 Unit: E038/E038 Consultation was requested by Dr. Michael Roblero MD Patient status: Emergency Length of stay: 0 days Reason for Consult/Chief Complaint Altered level of consciousness, not following commands. History of Present Illness Ignacio Aqunio is a 76 y.o. male with PMH [...] Scales Flowsheet Row Most Recent Value Modified Alex Scale Score Premorbid (MRSS) 3 filed on [...] Laterality: N/A; Surgeon: Bill Serrato MD; Location: [facility] MAIN OR PACEMAKER PLACEMENT N/A 02/18/2015 Laterality: N/A; Surgeon: Colton Daly MD; Location: [facility] CERVICAL FUSION C6/C7 SOCIAL HISTORY: Social History [...] mouth 4 times daily. Historical Provider nystatin 510382 UNIT/GM Powder 1 Application by Topical route 3 times daily. Patient not taking: Reported on 10/29/2015 04/02/15 Catarino Shepard MD Probiotic Product (PROBIOTIC DAILY PO) take by mouth.. Historical Provider senna 17.2 MG Tab take 1 tablet by mouth daily. 04/02/15 Catarino Shepard MD Tamsulosin HCl 0.4 MG Cap take 1 capsule by mouth at bedtime. 04/26/15 Erika De La Torre, HOSPICE LIAISON-INDUCTION MACHINE SETTER Current Meds: Current Facility Administered Meds: Current [...] Can by mouth 4 times daily. nystatin 205050 UNIT/GM Powder 1 Application by Topical route [...] Gait: Deferred Laboratory Results Diagnostics/Procedures: Labs-CBC Labs-Chem 7([facility]) Labs-Coags Additional Labs Lab Results Component Value Date CHOLESTEROL 139 07/13/2021 TRIG 83 07/13/2021 HDL 32 (L) 07/13/2021 LDLCALC 90 07/13/2021 Labs-Hemoglobin A1C Hemoglobin A1C Date Value Ref Range Status 07/13/2021 5.2 4.7 - 5.6 % Final Imaging [facility] Head: CTA Brain/Neck: OSH per my read no LVO, ACOM aneurysm noted. Assessment/Impression Ignacio Aquino presents with aphasia, not following commands with a distended and painful abdomen. On discharge 5/6 aphasia and not following commands was noted as his exam. Per bedside RN at [facility] reports he is normally aphasic, but was [...] with neurovascular attending Dr. Edwards. Signed, Марина [employer], LUIS-DIVINE 07/22/21 3:15 PM [facility] Work Phone: [phone]) [phone] Emergency department Note* KEO Trevino - 07/22/2021 2:40 PM EDT Patient presents as level II stroke alert via [facility] from [facility]. Per transporting medics, patient's spouse and son were present at outside hospital and are expected to arrive today. Family contact info on file if needed. SW will continue to follow. KEO Trevino [phone] [facility]05-10-2022 Consult note* Марина Felix, HOSPICE LIAISON-INDUCTION MACHINE SETTER - 07/22/2021 2:40 PM EDT Neurovascular Evaluation [...] Scales Flowsheet Row Most Recent Value Modified [place] Scale Score Premorbid (MRSS) 3 filed on [...] Laterality: N/A; Surgeon: Bill Serrato MD; Location: [facility] MAIN OR PACEMAKER PLACEMENT N/A 02/18/2015 Laterality: N/A; Surgeon: Colton Daly MD; Location: [facility] CERVICAL FUSION C6/C7 SOCIAL HISTORY: Social History [...] PLACARD Disability placard end date 04/10/2019 04/10/15 Erika De La Torre APRN-DIVINE docusate sodium-benzocaine 20-283 MG Enema enema 1 [...] in pm. 05/13/15 Erika De La Torre APRN-INDUCTION MACHINE SETTER lisinopril 20 MG tablet Take 20 mg by mouth daily. 04/14/21 Historical Provider melatonin 3 MG Tab take 3 mg by mouth at bedtime.. Historical Provider Methenamine Hippurate 1 g Tab take 1 g by mouth daily.. Historical Provider NIFEdipine 30 MG Tab SR 24 HR Take 1 tablet by mouth daily. 07/18/21 Mandi Muro APRN-DIVINE Nutritional Supplements (ENSURE COMPLETE PO) take 1 Can by mouth 4 times daily. Historical Provider nystatin 694820 UNIT/GM Powder 1 Application by Topical route 3 times daily. Patient not taking: Reported on 10/29/2015 04/02/15 Catarino Shepard MD Probiotic Product (PROBIOTIC DAILY PO) take by mouth.. Historical Provider senna 17.2 MG Tab take 1 tablet by mouth daily. 04/02/15 Catarino Shepard MD Tamsulosin HCl 0.4 MG Cap take 1 capsule by mouth at bedtime. 04/26/15 Erika De La Torre APRN-DIVINE Current Meds: Current Facility Administered Meds: Current [...] Can by mouth 4 times daily. nystatin 072538 UNIT/GM Powder 1 Application by Topical route [...] Final Imaging Imaging was not analyzed by [facility] Stroke Head: CTA Brain/Neck: OSH per my read no LVO, ACOM aneurysm noted. Assessment/Impression Ignacio Aquino presents with aphasia, not following commands with a distended and painful abdomen. On discharge 5/6 aphasia and not following commands was noted as his exam. Per bedside RN at [facility] reports he is normally aphasic, but was [...] with neurovascular attending Dr. Edwards. Signed, Марина Felix APRN-DIVINE 07/22/21 3:15 PM documented in [facility] encounterOS[facility] Physician Emergency department Note* Michael Roblero MD - 07/22/2021 2:39 PM EDT ED Teaching Attending Attestation AND PLAN Briefly, Ignacio Aquino is a 76 y.o. patient with history as below presenting with a change in mental status, coming in on transfer from another hospital, initially from a rehab facility [facility], whereshe was convalescing after a CVA with [...] N/A; Surgeon: Colton Daly MD; Location: [facility] CERVICAL FUSION C6/C7 Vitals: 07/22/21 1433 Height: [...] examined the patient. I agree with my housekeeping lead's documented plan except for the changes in plan outlined above by me. Michael Roblero MD 07/22/2021 2:39 PM [phone] Michael Roblero MD 07/23/21 4536 [facility] Work Phone: 1(965) 947-828505-10-2022 Emergency department Note* Sarai Ley RN - 07/22/2021 2:36 PM EDT Bed: E038 Expected date: 07/22/21 Expected time: Means of arrival: EMS Comments: [facility]05-10-2022 Emergency department Note* Sarai Ley RN - 07/22/2021 2:30 PM EDT Right sided deficits form old stroke, state that this morning he had a change in mentation. Poor report noted from Rehab. Recent admission at this facility. [facility]05-10-2022 Physician Emergency department Note* Mirza Ritchie MD [...] Laterality: N/A; Surgeon: Bill Serrato MD; Location: [facility] MAIN OR PACEMAKER PLACEMENT N/A 02/18/2015 Laterality: N/A; Surgeon: Colton Daly MD; Location: [facility] CERVICAL FUSION C6/C7 CURRENT MEDICATIONS Current [...] Can by mouth 4 times daily. nystatin 370565 UNIT/GM Powder 1 Application by Topical route [...] word substitutions. Mirza Ritchie MD Resident 07/22/21 5504 [facility] Work Phone: [phone] Note* Nursing Notes - Steffi Worrell RN - 07/18/2021 10:28 AM EDT Transport here for pt. AVS and ANALISA faxed to [facility]. IVs d/c'd without difficulty. Pt inc of a large amount loose brown stool and cleaned. D/c'd via ambulance to [facility]. at bedside and will leave with a friend when they arrive to transport her. [facility]05-06-2022 Miscellaneous Notes* Nursing Notes - Steffi Worrell RN - 07/18/2021 10:28 AM EDT Transport here for pt. AVS and ANALISA faxed to [facility]. IVs d/c'd without difficulty. Pt inc of a large amount loose brown stool and cleaned. D/c'd via ambulance to [facility]. at bedside and will leave with a friend when they arrive to transport her. * Nursing Notes - Mayela Macdonald RN - 07/17/2021 12:21 PM EDT I spoke with Ignacio Aquino this morning as Wireless Telegrapher for the [facility]. We reviewed the BE FAST sticker (Balance, [...] goal of average po being 50-75%. 5. voip network technician to follow. * Plan of Care [...] Real - 07/12/2021 4:24 PM EDT Problem: PUBLIC HEALTH WORKER - Language Goal: Establish Yes/No Description: Patient [...] [facility] documented in this encounterU [facility] History of Present illness Narrative* CORRIE Mathias - 07/18/2021 9:10 AM EDT Social Work Final Discharge Plan and Transportation Final Discharge Planning Discharge Disposition: Inpatient Rehab Facility Services at Discharge: Speech Therapy, Occupational Therapy, Physical Therapy Community Agency Name(s) For Handoff: [facility] IPR Name For Handoff: PRUDENCIO Fermin Phone For Handoff: [phone] Fax For Handoff: Selected Continued Care - Admitted Since 07/12/2021 Destination Coordination complete. Service Provider Selected Services Address Phone Fax Patient Preferred [facility] Inpatient Rehabilitation [address] [facility] [id number] -- -- Plan Plan: Discharge to inpatient rehab Patient/Family In Agreement With Plan: yes Internet Webmaster Called: Yes Name of Transport Company: [employer] ETA of Ambulance: 10 AM Tuesday 07/18 Transfer Mode: gurney Mode of Transfer: ambulance Transfer/Transport Equipment: copy of patient Records Patient medically stable for discharge per physician/medical team. SW confirmed with [facility] that they are able to accept the patient this date. Insurance pre-certification is not required. SW arranged transport as indicated above, ETA is 10 AM. The patient has no specialized equipment needs for transportation. AVS/ANALISA completed from a SW standpoint. SW updated the bedside RN, CCM, facility and patient/healthcare sales representative of the discharge plan and transport time. Patient/Mint Wafer Depositor remain inagreement with the discharge plan. Bedside RN to call report and fax AVS/ANALISA. Ambulance form left at the unit control clerk desk with a request for a printed transfer report. Discharge Instruction for Bedside RN: 1. Confirm the Ambulatory Order is in the ANALISA. 2. Print the ANALISA and AVS. 3. Print the Discharge Summary for facilities (if available). 4. Fax ANALISA, AVS and Discharge Summary (when applicable) to agency or facility. 5. Call the agency or facility for report. LIYAH Umaña, CORRIE-S Television Service Engineer for 10 BS * Joss Engle - 07/18/2021 8:57 AM EDT Final Discharge Planning and Transportation Final Discharge Planning Discharge Disposition: Inpatient Rehab Facility Services at Discharge: Physical Therapy, Occupational Therapy, Group Home, Speech Therapy Selected Continued Care - Admitted Since 07/12/2021 Destination Coordination complete. Service Provider Selected Services Address Phone Fax Patient Preferred [facility] Inpatient Rehabilitation [address] [facility] [address] -- -- Plan Plan: Pt is discharging to his local rehab. He has outpatient follow-up as noted [...] for phone and fax. LIYAH Herrera LISW-S, [facility]- Clinical Welder Apprentice ArcWallpaper Hanger [phone] * CORRIE Mathias - 07/17/2021 1:43 PM EDT Placement Plan Expected Discharge Date: 07/18/2021 Referred Level of Care: IPR Barriers: transportation Current Referrals and Status 1. [facility] IPR- accepted Transport arranged for tomorrow at 10 AM with [facility]. LIYAH Umaña LISW-S Television Service Engineer for 10 BS * Calista Bowers - 07/16/2021 3:45 PM EDT Ignacio Aquino's case has been reviewed and he has been denied for IPR at [facility]. He does not appear as if he would be able to tolerate 3 hours of therapy/day and unlikely to be able to achieve discharge to home within IPR length of stay. Thank you for the referral, Kayla Bowers,PT [facility] [place] Construction Supervisor [phone] * CORRIE Mathias - 07/16/2021 2:49 PM EDT Placement Plan Expected Discharge Date: 07/18/2021 Referred Level of Care: IPR Barriers: medical Current Referrals and Status 1. [facility]- denied 2. [facility]- accepted SW met with pt and spouse at bedside and updated her on status of referrals listed above. Spouse states she is in agreement with placement at [facility]. SW notified facility and will arrange discharge. LIYAH Umaña, CORRIE-S Television Service Engineer for 10 [facility] * Calista Bowers - 07/16/2021 1:09 PM EDT Referral has been received to evaluate for admission to [facility] for Inpt. Rehab. Will review with PM&R physician and notify you of the determination. Thank you for the referral, Kayla Bowers,LATOSHA [facility] [place] Construction Supervisor [phone] * Kavita Contreras PT - 07/16/2021 11:12 AM EDT Acute Physical Therapy Treatment Prior to Admission [facility] score(s): PRIOR LEVEL AM-PAC Mobility Raw Score: 21 Current AM-PAC score(s): CURRENT AM-PAC Mobility Raw Score: 7 Based on the above AM-PAC score(s) and PT clinical judgment, patient is a good candidate for discharge to Group Home Facility Discharge Barriers: Patient needs assistance with [...] break Mobility Assessment/Intervention: Supine to Sit Mobility Kiana Level: Supine->Sit: maximum assist (25% patient effort) Physical Assist: Supine->Sit: 2 person assist Bed Features/Set-up: Supine->Sit: Head of bed elevated, Use of bed rail Skilled Rationale: Sequencing, Positioning, Hand placement, Verbal cues Skilled Intervention/Details: Supine->Sit: Despite increased time and cues patient required max assist of 2 Sit to Supine Mobility Kiana Level: Sit->Supine: maximum assist (25% patient effort) Physical Assist: Sit->Supine: 2 person assist Bed Features/Set-up: Sit->Supine: Flat, Use of bed rail Skilled Rationale: Positioning, Sequencing, Hand placement, Verbal cues Transfer Assessment/Intervention: Sit to Stand Transfer Kiana Level: Sit->Stand: maximum assist (25% patient effort) [...] Mobility Assessment/Intervention: Stairs Assessment/Intervention: Outcome Score(s): CURRENT [facility] Basic Mobility Inpatient Short Form Turning over in bed: 2 - A Lot of Assistance Sitting/standing from chair: 1 - Total Assistance Moving from lying on back to sittin - Total Assistance Moving to and from bed to chair: 1 - Total Assistance Walk in hospital room: 1 - Total Assistance Climbing 3-5 steps with a railin - Total Assistance CURRENT [facility] Mobility Raw Score: 7 CURRENT [facility] Mobility Functional Limitation/Modifier: 92.36% Currently Impaired in [...] OT clinical judgment, discharge destination recommendation is: Group Home Facility Discharge Barriers: Patient needs assistance with [...] Sequencing, Initiation, Attention Grooming Skilled Rationale (Verbal/Tactile/Visual/Demonstration): [id number]-vuki-fptq assist Grooming Intervention/Details: max hand over hand [...] Positioning Mobility Assessment/Intervention: Supine to Sit Mobility Kiana Level: Supine->Sit: maximum assist (25% patient effort) Physical Assist: Supine->Sit: 2 person assist Bed Features/Set-up: Supine->Sit: Head of bed elevated Skilled Rationale: Verbal cues, Hand placement Transfer Assessment/Intervention: Sit to Stand Transfer Kiana Level: Sit->Stand: maximum assist (25% patient effort) Physical Assist: Sit->Stand: 2 person assist Assistive Device: Sit->Stand: gait belt, 2 wheeled walker Skilled Rationale: Hand placement, Verbal cues, Sequencing, Positioning Skilled Intervention/Details: Sit->Stand: X 3 trials from EOB. Max cues for upright posture throughout with minimal correction CURRENT AM-PAC Daily Activity Inpatient Short Form Putting on/Taking Off Lower Body Clothin - Total Assistance Bathin - A Lot of Assistance Toiletin - Total Assistance Putting on/Taking Off Upper Body Clothin - A Lot of Assistance Groomin - A Lot of Assistance Eatin - A Lot of Assistance CURRENT AM-PAC Activity Raw Score: 10 CURRENT AM-PAC Activity Functional Limitation/Modifier: 74.70% Currently Impaired in [...] Serrato in 4 weeks. Anticipated discharge disposition: Group Home Facility (vs IP Rehab) Anticipated Services at Discharge: Physical Therapy, Occupational Therapy, Group Home, Speech Therapy, Outpatient follow up Barriers to Discharge: Uninsured/Underinsured Explanation of Barriers: Pt does not have rx insurance coverage Readmission Risk Score Risk of Readmission: 2.6 Category Reference: High:16-100 Mod-High:10-16 Mod-Low: 5-10 Low: 0-5 Joss Martin, TRIMMING CUTTER MACHINE, CARTON FILLING MACHINE OPERATOR-S, ACM-SW Clinical Welder Apprentice ArcWallpaper Hanger [phone] * BHASKAR Choi - 07/15/2021 2:14 PM EDT NOTE Nutrition Plan of Care: 1. Continue current diet order. 2. Will provide strawberry/ chocolate Ensure Enlive (350 kcal, 20 g PRO each) once daily with Breakfast to optimize intakes and skin integrity. 3. Monitor for significant weight changes. 4. Monitor and encourage po intakes with goal of average po being 50-75%. 5. voip network technician to follow. Ignacio Aquino is a 76 y.o. male admitted with a past medical history significant for hypertension, [id number] + post-traumatic myelopathy w/ C5 incomplete tetraplegia, neurogenic bladder + bowel, depression, anxiety, traumatic optic neuropathy, who presents as a Level 1 Stroke Alert. Information obtained from family Licensed Retail Supervisor Screening Pt's appetite is poor. Pt with [...] Standing Number of Occurrences: 1 Food Allergies reviewed:[facility] Cultural or Pentecostalism Restrictions/Preferences: none Skin Candace Score: 14 STAND [...] skin breakdown/promote wound healing, and optimize intakes. Win ibrahim for tolerance and any changes. Anjelica Felder [facility] Drill Setup Operator Student Cosigned by: BHASKAR Choi at 07/15/2021 [...] goal of average po being 50-75%. 5. voip network technician to follow. Ignacio Aquino is a 76 y.o. male admitted with a past medical history significant for hypertension, [id number] + post-traumatic myelopathy w/ C5 incomplete tetraplegia, neurogenic bladder + bowel, depression, anxiety, traumatic optic neuropathy, who presents as a Level 1 Stroke Alert. Information obtained from family Licensed Retail Supervisor Screening Pt's appetite is poor. Pt with [...] Occurrences: 1 Food Allergies reviewed:NKFA Cultural or Pentecostalism Restrictions/Preferences: none Skin Candace Score: 14 STAND [...] for tolerance and any changes. Anjelica Felder [facility] Drill Setup Operator Student * Kaivta Contreras PT - 07/15/2021 12:00 PM EDT Physical [...] EDT Speech Language Pathology Attempt Note 07/15/2021 PUBLIC HEALTH WORKER Therapy Completed: Attempted Attempted Reason: Patient is unavailable due to test/procedure JUAN Valente Time In: 1029 Time Out: 1029 Total Visit Time: 0 minutes Total Treatment Time (skilled, billable minutes): 0 minutes * Joss Engle - 07/14/2021 3:37 PM EDTSolvin: Initial Assessment Discharge Planning Patient Assessment Admission Assessment Patient Assessment Completed: Yes Anticipated discharge disposition: Group Home Facility (vs IP Rehab) Reason for Admission: stroke workup Is the patient able to participate in the assessment?: No Explanation of why patient is unable to participate: AMS Information source: Spouse Information Source Name/Contact: Zach Aquino Demographics Verified and Updated: Yes Has the patient been admitted to any hospital in the last 30 days?: Transferred From Outside Hospital ([facility]) Advanced Care Planning Has the patient completed Advance Directives?: Completed, Not Available in Medical Record Copy of Advance Directives was requested?: Yes Advance Directives Requested From: spouse Legal Next of Kin Does the patient have a Guardian?: No Spouse: Yes Name and Contact information: Zach Aquino [phone] Adult Child(meme), List All Adult Children: Yes [...] Is the patient from a facility or longterm?: No Patient lives with: Spouse or Partner Living Environment: House How many steps does the patient have to navigate to enter or inside the home? : ramp Does the patient have a first floor set-up with bed and bathroom?: Yes Patient Caregiving Responsibilities: Self Patient-identified caregiver/support network: Family, Friends, Islam Who does the patient identify as a [...] consults?: Yes Select consult type: PT, OT, PUBLIC HEALTH WORKER, Social Work Does the patient's home require any home modifications for discharge? : No CM to recommend therapy or other consults? : No Medication Management Does the patient have prescription insurance coverage? : No (spouse says they use any discount cards that their pharmacy offers if needed) Is the patient on Anticoagulation? : No (he was prescribed something but didn't take it) [facility] [address] [place] [id number] [address] [address] Induction Machine Operator Does the patient or healthcare sales representative express financial concerns? : No Employed?: Yes Coping/Stress Concerns about patient s coping and stress?: Unable to Assess Concerns about patient s caregiver s coping and stress?: No Values and Beliefs Cultural or cheondoism practices that may impact discharge planning and/or medical care?: No Initial Discharge Planning Anticipated discharge disposition: Group Home Facility (vs IP Rehab) Transportation Available for Discharge: Ambulance Anticipated DME: none Anticipated Services at Discharge: Physical Therapy, Occupational Therapy, Group Home, Speech Therapy, Outpatient follow up Patient Assessment Completed: Yes Risk of Readmission: 5.9 Category Reference: High:16-100 Mod-High:10-16 Mod-Low: 5-10 Low: 0-5 Expected Discharge Date: 07/16/21 Discharge Planning Summary Pt lives with spouse and required some assistance with ADLs and the 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 He was still fairly independent and driving prior to this acute stroke. Discussed recommendation for SNF at discharge. Pt/family are also familiar with [facility] level of care as he went to [facility] to rehab his prior injury. Pt's spouse says she would like to discuss discharge planswith their 3 sons. Case Management Plan 1. Introduced role of CM to pt. CM to follow for care coordination and discharge planning needs. 2. SW updated. 3. Neurovascular follow-up appointment scheduled for 08/07/21. Joss Martin, TRIMMING CUTTER MACHINE, CARTON FILLING MACHINE OPERATOR-S, ACM-BUZZ Clinical Welder Apprentice ArcWallpaper Hanger [phone] * Kavita Contreras, PT - 07/14/2021 1:11 PM EDT Acute Physical Therapy Treatment Prior to Admission AMPA score(s): PRIOR LEVEL AM-PAC Mobility Raw Score: 21 Current AM-PAC score(s): CURRENT AM-PAC Mobility Raw Score: 7 Based on the above AM-PAC score(s) and PT clinical judgment, patient is a good candidate for discharge to Group Home Facility Discharge Barriers: Patient needs assistance with [...] break Mobility Assessment/Intervention: Supine to Sit Mobility Kiana Level: Supine->Sit: maximum assist (25% patient effort) Physical Assist: Supine->Sit: 2 person assist Bed Features/Set-up: Supine->Sit: Head of bed elevated, Use of bed rail Skilled Rationale: Positioning, Sequencing, Hand placement, Verbal cues Skilled Intervention/Details: Supine->Sit: Pt with minimal to no intiation, cues for log rollingdue to reporting patient with back pain Transfer Assessment/Intervention: Sit to Stand Transfer Kiana Level: Sit->Stand: maximum assist (25% patient effort) Physical Assist: Sit->Stand: 2 person assist Skilled Rationale: Positioning, Sequencing, Hand placement, Verbal cues Skilled Intervention/Details: Sit->Stand: Pt completed sit to stand x 3 with max assist of 2 andarm and arm assist. Pt required blocking of bilateral feet and knees Gait/Functional Mobility Assessment/Intervention: Stairs Assessment/Intervention: Outcome Score(s): CURRENT AM-PAC Basic Mobility Inpatient [...] with a railin - Total Assistance CURRENT -[facility] Mobility Raw Score: 7 CURRENT -[facility] Mobility Functional Limitation/Modifier: 92.36% Currently [...] OT clinical judgment, discharge destination recommendation is: Group Home Facility Discharge Barriers: Patient needs assistance with [...] cognition) Mobility Assessment: Supine to Sit Mobility Kiana Level: Supine->Sit: maximum assist (25% patient effort) Physical Assist: Supine->Sit: 2 person assist Bed Features/Set-up: Supine->Sit: Head of bed elevated Skilled Rationale: Verbal cues, Hand placement, Sequencing, Positioning Skilled Intervention/Details: Supine->Sit: Cues for log roll technique Transfer Assessment: Sit to Stand Transfer Kiana Level: Sit->Stand: maximum assist (25% patient effort) Physical Assist: Sit->Stand: 2 person assist Assistive Device: Sit->Stand: (arm in arm assist X 2 trials, sherly steady third stand) Skilled Rationale: Positioning, Full extension to upright positioning/posture, Finding/maintaining midline positioning Skilled Intervention/Details: Sit->Stand: max cues for upright postitioning, but minimal success. Outcome Score(s): Fugl-Ca UE Motor Score: (Unable to score due to cognition) CURRENT [facility] Daily Activity Inpatient Short Form Putting on/Taking Off Lower Body Clothin - Total Assistance Bathin - A Lot of Assistance Toiletin - Total Assistance Putting on/Taking Off Upper Body Clothin - A Lot of Assistance Groomin - A Lot of Assistance Eatin - A Lot of Assistance CURRENT [facility] Activity Raw Score: 10 CURRENT [facility] Activity Functional Limitation/Modifier: 74.70% Currently Impaired in [...] current Occupational Therapy Discharge Summary. * Kavita Contreras PT - 07/13/2021 12:56 PM EDT Acute Physical Therapy Evaluation Prior to Admission [facility] score(s): PRIOR LEVEL AM-PAC Mobility Raw Score: 21 Current AM-PAC score(s): CURRENT AM-PAC Mobility Raw Score: 8 Based on the above AM-PAC score(s) and PT clinical judgment, patient is a good candidate for discharge to Group Home Facility Discharge Barriers: Patient needs assistance with [...] LEs Mobility Assessment: Supine to Sit Mobility Kiana Level: Supine->Sit: maximum assist (25% patient effort) Bed Features/Set-up: Supine->Sit: Head of bed elevated, Use of bed rail Skilled Rationale: Positioning, Sequencing, Hand placement, Verbal cues Sit to Supine Mobility Kiana Level: Sit->Supine: maximum assist (25% patient effort) [...] surface Gait/Functional Mobility: Stairs: Outcome Score(s): CURRENT [facility] Basic Mobility Inpatient Short Form Turning over in bed: 2 - A Lot of Assistance Sitting/standing from chair: 1 - Total Assistance Moving from lying on back to sittin - A Lot of Assistance Moving to and from bed to chair: 1 - Total Assistance Walk in hospital room: 1 - Total Assistance Climbing 3-5 steps with a railin - Total Assistance CURRENT [facility] Mobility Raw Score: 8 CURRENT [facility] Mobility Functional Limitation/Modifier: 86.62% Currently Impaired in [...] the current Physical Therapy Discharge Summary. * JUAN Real - 07/12/2021 4:24 PM EDT Acute Care PUBLIC HEALTH WORKER Speech/Language/Cognitive Evaluation Best mode of Communication: no reliable mode of communication Discharge Recommendations: Based on the below outcome measures/assessment score(s) and PUBLIC HEALTH WORKER clinicaljudgment, discharge destination recommendation is: Deferred to PT/OT recomendations related to mobility Discharge Barriers: Inability to communicate basic wants/needs Supporting factors for discharge setting: Impaired speech and language skills limiting ability to communicate basic wants/needs Acute PUBLIC HEALTH WORKER Outcomes Tracking Communicate basic wants and needs?: [...] numbers, as well as intermittently speaking in [place] (per family at bedside, reports that he is not making sense in [place] either). Able to complete automatic speech task [...] or apraxia. Pt would benefit from ongoing PUBLIC HEALTH WORKER services to address noted deficits and assist pt in communicating wants and needs Patient Instruction/Education this session: Role of PUBLIC HEALTH WORKER and POC, provided family education regarding aphasia Plan for next session: Continue POC, ongoing assessment, family education regarding aphasia Subjective: Pt laying in bed counting upon PUBLIC HEALTH WORKER entering room, and son at bedside. Pain: General Pain Documentation (Adult, OB, Peds) Presence of Pain: non-verbal indicator of pain/discomfort not present Patient History Comments: Ignacio Aquino is a 76 y.o. male who presents from [facility] with R sided weaknessand aphasia, NIHSS of [address] CT head w/o acute hemorrhage, TPA administered. [facility]. NIHSS of 16 on [...] Asthenia (A): 0 Strain (S): 0 Acute PUBLIC HEALTH WORKER Goals Plan of Care by JUAN Real at 07/12/2021 4:24 PM Version 1 of 1 Problem: PUBLIC HEALTH WORKER - Language Goal: Establish Yes/No Description: Patient [...] consult for swallow evaluation. However, patient passed Emma Swallow Screening by nursing per RN verbal report. Swallow eval by PUBLIC HEALTH WORKER will not be completed at this time unless this service notified of change in status or re- consult for swallow eval placed. PUBLIC HEALTH WORKER to proceed with speech/language/cognitive evaluation per order. Thank you. No charge Aggie Wu MA, [facility]-PUBLIC HEALTH WORKER Email: [email or web address]* Nursing Notes - Mayela Macdonald RN - 07/17/2021 12:21 PM EDT I spoke with Ignacio Aquino this morning as Wireless Telegrapher for the Comprehensive St[facility] at [facility]. We reviewed the BE FAST sticker (Balance, Eyes, Facialdroop or uneven smile, Arm numbness or weakness - especially on one side, Speech that is slurred ordifficult to talk or understand, and Time to call 911). I then left my card assuring the patient and /or family that they should feel free to contact me with any questions. [facility]05-04-[facility] Note* Plan of Care - Arabella Palacios [...] ability to safely complete ADLs. Outcome: Ongoing [facility]* Plan of Care - Kavita Contreras [...] mobility and safety. Outcome: Progressing Toward Goal [facility]05-04-[facility] Note* Plan of Care - Mirza Guerra [...] questions. Mirza Guerra MD, Neurosurgery NS2 ([phone]) [facility] Work Phone: [phone] Hospital Discharge instructions* Discharge Instructions* Todd Multani APRN-INDUCTION MACHINE SETTER - 07/15/2021 3:44 PM EDT Please take [...] may call your neurovascular doctors office at [phone], if you have questions between 8:30 am and 4:30 pm. - For off hours or the weekend you may call the office or the hospital hooker operator at and ask for the stroke resident buttonhole marker to be paged. - If you have any questions or needs, please call Mayela Macdonald RN, stroke lead java programmer at [phone] Mon-Fri from 7- ? Any questions concerning your discharge instructions please call Case Management Office [phone] Patient Stroke Resources: [facility] Stroke Support [facility] Stroke Support Group is for stroke survivors, friends, andfamily members. Meets every Wednesday from 12:00PM to 1:00PM at [facility] ([facility] [address] [place] [address] Jennifer Escobedo, at [phone]. If you are outside of the [place] area, contact [place] Stroke Association at www.strokeassociation.org or 0-098-2-stroke, or for supports groups in your area. Also refer to the Stroke Education booklet you received as part of your stroke education while you were a patient for additional resources Additional Contacts: Evening and Weekend Contacts If you have questions or concerns during evening, weekend, or holiday hours, please call: -[facility] hooker operator at [phone]. -[facility] hooker operator at [phone] Ask the hooker operator to page the on-call doctor for [...] Other reference numbers: [facility] Intake Office at [phone]; [employer] at [phone]; or Suicide Prevention Hotline at 534-321-0863. *Helpful phone numbers: Free Crisis Hotline: 0-218-092-TALK ( ) Suicide Hotline: 902.109.9219 Seniors Suicide Hotline: 958.713.6346 [facility] Youth: [phone] [facility] [place]: [phone] (free counseling) [employer] Access Hotline: 192-797-JEZN (983-660-4479) 24-hour crisis text hotline: Text the word 4hope to 575-891 for crisis support. Texting this number is [...] you may qualify for Medicaid/public assistance: The [facility] Department of Job and Family Services can now process tong (TANF), food (SNAP) and Medicaid Applications over the phone. Please call [phone] ([phone]) and apply over the phone or apply online at [email or web address]. Wednesday-Wednesday 8am-12pm noon. Medication Assistance Programs [employer] members can buy 100+ common prescriptions for FREE, $3 or $6. Annual membership is $36 for individuals and $72 for families (up to 6 people, including pets). Sign up online or enroll at your nearest pharmacy! -[employer], web site can provide a significant number [...] you take each medicine. Include all prescription czacyub-zye-vbvchbw medicines, vitamins, and supplements. Keep this list [...] plan your refills so that you can pick and shovel man all your medicines at the same time. [...] breathing -Fever or chills [facility]* Plan of Care - BHASKAR Choi [...] goal of average po being 50-75%. 5. voip network technician to follow. [facility]05-03-2022 Nurse Surgical operation note* Yumiko Albarado RN - 07/15/2021 12:32 PM EDT 1050-Patient here from OR. Hooked up to monitor. VSS. Bedside report done. 1130-Called for sign out. 1215-Called report to floor. 1240-Patient to floor per bed with tele and pulse ox. [facility]05-03-2022 Nurse Note* Yumiko Albarado RN - 07/15/2021 12:32 PM EDT 1050-Patient here from OR. Hooked up to monitor. VSS. Bedside report done. 1130-Called for sign out. 1215-Called report to floor. 1240-Patient to floor per bed with tele and pulse ox. [facility]* Plan of Care - Kavita Contreras [...] mobility and safety. Outcome: Progressing Toward Goal [facility]05-02-2022 Note* Plan of Care - Arabella Palacios [...] ability to safely complete ADLs. Outcome: Ongoing [facility]05-02-2022 Note* Plan of Care - Shaun Dumas [...] (reference Stroke (Ischemic) (Adult) CPG). Outcome: Ongoing [facility]05-01-2022 NoteIMPRESSION: Interval progression in the loss of john-white matter differentiation involving the left cerebral hemisphere as well as progression/development of focal hypoattenuating areas involving the left basal ganglia/mcdermott radiata as well as the left occipital lobe. The findings are consistent with evolving infarcts. No evidence of hemorrhagic transformation. No significant midline shift. [id number] Note* Plan of Care - Kavita Contreras [...] improve functional mobility and safety. Outcome: Ongoing [facility]04-30-2022 Note* Plan of Care - JUAN Real - 07/12/2021 4:24 PM EDT Problem: PUBLIC HEALTH WORKER - Language Goal: Establish Yes/No Description: Patient [...] improve word-finding and functional communication. Outcome: Ongoing [facility]04-30-2022 Emergency department Note* KEO Michael - 07/12/2021 [...] of the shift for Patient/Family Support. Yovany Zheng Tax Attorney, Emergency Dept., [facility] [phone] [facility]04-30-2022 Emergency department Note* KEO Michael - 07/12/2021 [...] of the shift for Patient/Family Support. Yovany Zheng Tax Attorney, Emergency Dept., [facility] [phone] * Tessa Calvert RN - 07/12/2021 12:44 PM EDT Abd taunt, left bowel sounds faint. Dr Flores aware, not worried mejía is draining fine. * Tessa Calvert RN - 07/12/2021 12:02 PM EDT Flush complete. Patient started to speak [place] o[place]i. Difficult to get him to follow commands. Spoke with , said his [place] o[place]i was not making sense, he would not answer questions or follow commands. * Satinder Buckner MD - 07/12/2021 11:42 AM EDT ED Attending Past Medical History: Diagnosis Date Anemia Central cord syndrome (HCC) HTN (hypertension) Obesity Ignacio Aquino is a 76 y.o. male. 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 H/o psychiatric wheelchair for BLE weakness r/t prior spine [...] Buckner MD 07/12/21 1244 * Mallory Bradley [facility] - 07/12/2021 11:39 AM EDT Department of [...] completely infused and therefore the transition to [facility] pump was facilitated. Instructed PRUDENCIO Zarate to [...] with any further questions. Name: Mallory Bradley RPH Phone: [phone] Date/Time: 07/12/2021 11:39 AM * Tessa Calvert [...] N/A; Surgeon: Colton Daly MD; Location: [facility] CERVICAL FUSION C6/C7 Family History Problem Relation [...] Resident 07/12/21 1537 documented in this encounterOSU [facility]* Certification - Jaxon Dahl MD - 07/12/2021 1:05 PM EDT I certify that this patient requires inpatient services at this time. I anticipate the expected length of stay will include at least two midnights. Inpatient services are due to the following medicalconcerns: stroke. [facility]04[facility]30[facility]2022 Emergency department Note* Tessa Calvert RN - 07/12/2021 12:44 PM EDT Abd taunt, left bowel sounds faint. Dr Flores aware, not worried mejía is draining fine. [facility]04-30-2022 NoteAcute Coronary Syndrome (ACS): Initial Evaluation and Management: [email or web address] [email or web address] [facility]04-30-2022 Emergency department Note* Tessa Calvert RN - 07/12/2021 12:02 PM EDT Flush complete. Patient started to speak [place] o[place]i. Difficult to get him to follow commands. Spoke with , said his [place] o[place]i was not making sense, he would not answer questions or follow commands. [facility]04-30-2022 Physician Emergency department Note* Satinder Buckner MD - 07/12/2021 11:42 AM EDT ED Attending Past Medical History: Diagnosis Date Anemia Central cord syndrome (HCC) HTN (hypertension) Obesity Ignacio Aquino is a 76 y.o. male. 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 H/o psychiatric wheelchair for BLE weakness r/t prior spine [...] nursing, and consultants. Satinder Buckner MD 07/12/21 2543 [facility] Work Phone: 1(112) 900-767304-30-2022 Emergency department Note* Mallory Bradley RP - 07/12/2021 11:39 AM EDT Department of [...] completely infused and therefore the transition to [facility] pump was facilitated. Instructed PRUDENCIO Zarate to [...] with any further questions. Name: Mallory Bradley RPH Phone: [phone] Date/Time: 07/12/2021 11:39 AM [facility]04-30-2022 Emergency department Note* Tessa Calvert RN - 07/12/2021 11:32 AM EDT Patient arrived via Air. LKW 800am. 900 am slid out of bed, did not hit head. TPA started at 1001 9mg blous- 81 mg. Flush 10:44. Patient is not on blood thinners (however was previously). WC bound d/t previous neck injury. BS 115 for medics. [facility]04-30-2022 Emergency department Note* Tessa Calvert RN - 07/12/2021 11:31 AM EDT Bed: E034 Expected date: 07/12/21 Expected time: 11:25 AM Means of arrival: Air [facility]: [facility] Emergency department Note* Michael Contreras MD [...] Surgeon: Colton Daly MD; Location[facility] CERVICAL FUSION C6/C7 Family History Problem Relation [...] further evaluation. Michael Contreras MD Resident 07/12/21 1530 [facility] Work Phone: Evaluation + Plan note Future Appointments Appointment Date:04/16/2021 09:30:00 AM Scheduled Provider:MALLORY MCPHERSON DO Location:[employer] [place] Appointment Type:PC OV Future Scheduled Tests Laboratory* Prostate Specific Antigen 04/19/[address] [facility] Evaluation + Plan note Future Appointments Appointment Date:01/07/2022 02:45:00 PM Scheduled Provider:MALLORY MCPHERSON DO Location:[employer] [place] Appointment Type:PC OV Future Scheduled Tests Laboratory* Prostate Specific Antigen 04/16/[address] [facility] Evaluation + Plan note Future Appointments Appointment Date:01/06/2023 02:00:00 PM Scheduled Provider:MALLORY MCPHERSON DO Location:[employer] [facility] Appointment Type:PC OV Follow Up Future Scheduled Tests Laboratory* Prostate Specific Antigen 07/08/22 * Thyroid Stimulating Hormone 07/08/22 * Albumin/Creatinine Ratio, Random Urine 07/08/22 * Complete Metabolic Panel 07/08/[address] [facility] Evaluation + Plan note Future Appointments Appointment Date:07/07/2023 01:00:00 PM Scheduled Provider:MALLORY MCPHERSON DO Location:[facility] [place] Appointment Type:PC OV Follow Up [facility] Evaluation + Plan note Future Appointments Appointment Date:01/05/2024 01:30:00 PM Scheduled Provider:MALLORY MCPHERSON DO Location:[employer] [place] Appointment Type:PC OV [facility] Evaluation + Plan note Future Appointments Appointment Date:07/05/2024 01:30:00 PM Scheduled Provider:MALLORY MCPHERSON DO Location:[employer] [place] Appointment Type:PC OV Follow Up Future Scheduled Tests Laboratory* Prostate Specific Antigen 01/05/24 * Complete Blood Count 01/05/24 * Complete Metabolic Panel 01/05/[address] [facility] evaluation note* Diagnosis Onset Date Resolution Status Atrial arrhythmia acute Lightheaded acute History of permanent cardiac pacemaker placement chronic Sick sinus syndrome resolved Atrial fibrillation acute History of permanent cardiac pacemaker placement chronic Sick sinus syndrome resolved Atrial fibrillation acute History of permanent cardiac pacemaker placement chronic Sick sinus syndrome resolved [facility] Work Phone: evaluation note* Diagnosis Onset Date Resolution Status Atrial fibrillation acute History of permanent cardiac pacemaker placement chronic Sick sinus syndrome resolved Atrial fibrillation acute History of permanent cardiac pacemaker placement chronic Sick sinus syndrome resolved [facility] Work Phone: Evaluation note* Diagnosis 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- Primary Stroke Unspecified cerebral artery occlusion with cerebral infarction [facility] Diagnosis Onset Date Resolution Status Atrial [...] acute Sick sinus syndrome acute Hypertension chronic [facility] Work Phone: Evaluation note* Diagnosis Onset Date Resolution Status Atrial fibrillation acute History of permanent cardiac pacemaker placement chronic Sick sinus syndrome resolved Atrial fibrillation acute History of permanent cardiac pacemaker placement chronic Sick sinus syndrome resolved Anterior communicating artery aneurysm acute Aphasia acute Atrial fibrillation acute [id number] acute Debility acute Depression acute Dysarthria acute Hypokalemia acute Left hemiparesis acute AAA (abdominal aortic aneurysm) without rupture chronic Anemia chronic Central cord syndrome chroni c Essential hypertension chron ic History of permanent cardiac pacemaker placement chronic Hypertension chronic 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 Neurogenic bladder chronic Neurogenic bowel chronic Neuropathy chronic 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.9) 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 turner and finisher levi Paraplegia chronic Sick sinus syndrome chronic Anterior communicating artery aneurysm acute Aphasia acute Atrial fibrillation acute [id number] acute Debility acute Hypokalemia acute Left hemiparesis acute History of permanent cardiac pacemaker placement chronic Hypertension chronic 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 Neurogenic bladder chronic Neurogenic bowel chronic 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.9) electrode turner and 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 levi Paraplegia chronic [facility] Work Phone: Evaluation note* Diagnosis Altered [...] disorder Aphasia [facility] Diagnosis Onset Date Resolution Status Atrial fibrillation acute Sick sinus syndrome resolved Atrial fibrillation acute Sick sinus syndrome resolved Aphasia acute Atrial fibrillation acute [id number] acute Debility acute Depression acute Dysarthria acute 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 Neurogenic bowel chronic Hypokalemia resolved Aphasia acute Atrial fibrillation acute [id number] acute Debility acute 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 Neurogenic bowel chronic Hypokalemia resolved Aphasia acute Atrial fibrillation acute [id number] acute Chronic anticoagulation acut e Debility acute Depression acute Dysarthria acute Heme + stool acute [id number] acute Normochromic normocytic anemia acute Pressure ulcer acute 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 Neurogenic bladder chronic Neurogenic bowel chronic Pacemaker chronic Prostatic hypertrophy chroni c Catheter-associated urinary tract infection resolved Decubitus ulcer, stage I res olved Decubitus ulcer, stage II re solved Dehydration resolved Hypokalemia resolved Orthostatic hypotension reso lved TIA (transient ischemic attack) resolved [facility] Work Phone: Evaluation note* Diagnosis Onset Date Resolution Status Pacemaker chronic Sick sinus syndrome resolved Aphasia acute Atrial fibrillation acute [id number] acute Depression acute Dysarthria acute 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 Neurogenic bowel chronic Hypokalemia resolved Aphasia acute Atrial fibrillation acute [id number] acute 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 Neurogenic bowel chronic Hypokalemia resolved Aphasia acute Atrial fibrillation acute [id number] acute Chronic anticoagulation acut e Debility acute Depression acute Dysarthria acute Heme + stool acute [id number] acute Iron deficiency anemia acute Normochromic normocytic [...] tract infection acute Transient ischemic attack ac [place] Atrial fibrillation acute Bilateral lower extremity edema acute CVA (cerebral vascular accident) acute Sick sinus syndrome resolved [facility] Work Phone: Evaluation note* Diagnosis Onset Date Resolution Status Pacemaker chronic Sick sinus syndrome resolved Aphasia acute Atrial fibrillation acute [id number] acute Depression acute Dysarthria acute 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 Neurogenic bowel chronic Hypokalemia resolved Aphasia acute Atrial fibrillation acute [id number] acute 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 Neurogenic bowel chronic Hypokalemia resolved Aphasia acute Atrial fibrillation acute [id number] acute Chronic anticoagulation acut e Debility acute Depression acute Dysarthria acute Heme + stool acute [id number] acute Iron deficiency anemia acute Normochromic normocytic [...] tract infection acute Transient ischemic attack ac [place] Urinary tract infection acut e Atrial fibrillation acute Bilateral lower extremity edema acute CVA (cerebral vascular accident) acute Sick sinus syndrome resolved [facility] Work Phone: Evaluation note* Diagnosis Onset Date Resolution Status Pacemaker chronic Sick sinus syndrome resolved Aphasia acute Atrial fibrillation acute [id number] acute Depression acute Dysarthria acute 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 Neurogenic bowel chronic Hypokalemia resolved Aphasia acute Atrial fibrillation acute [id number] acute 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 Neurogenic bowel chronic Hypokalemia resolved Aphasia acute Atrial fibrillation acute [id number] acute Chronic anticoagulation acut e Debility acute Depression acute Dysarthria acute Heme + stool acute [id number] acute Iron deficiency anemia acute Normochromic normocytic [...] vascular accident) acute Sick sinus syndrome resolved [facility] Work Phone: Evaluation note* Diagnosis Cerebral infarction, unspecified mechanism (HCC)- Primary Quadriplegia, C5-C7, incomplete (HCC) Quadriplegia, C5-C7, incomplete Gait abnormality Abnormality of gait Mixed receptive-expressive language disorder [facility] Onset Date Resolution Status Atrial fibrillation acute CVA (cerebral vascular accident) acute Sick sinus syndrome resolved Pacemaker chronic Sick sinus syndrome resolved [facility] Work Phone: Evaluation note* Diagnosis Onset Date Resolution Status Atrial fibrillation acute CVA (cerebral vascular accident) acute Sick sinus syndrome resolved Pacemaker chronic Sick sinus syndrome resolved Nausea & vomiting acute Pancreatitis acute UTI (urinary tract infection) acute [facility] Work Phone: Evaluation note* Diagnosis Onset Date Resolution Status Pacemaker chronic Sick sinus syndrome resolved Nausea & vomiting resolved Pancreatitis resolved UTI (urinary tract infection) resolved [facility] Work Phone: Evaluation note* Diagnosis Onset Date Resolution Status Nausea & vomiting resolved Pancreatitis resolved UTI (urinary tract infection) resolved Atrial fibrillation acute Bilateral lower extremity edema acute CVA (cerebral vascular accident) acute Fatigue acute Sick sinus syndrome resolved [facility] Work Phone: Evaluation note* Diagnosis Onset Date Resolution Status Atrial fibrillation acute Bilateral lower extremity edema acute CVA (cerebral vascular accident) acute Sick sinus syndrome resolved [facility] Work Phone: Hospital course Narrative No data available for this section [facility] Hospital Discharge instructions No data available for this section [facility] Progress note No data available for this section 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 [place] [address] Referral ID Status Reason Start Date Expiration Date V isits Requested Visits Authorized [id number] New Request 07/15/2021 08/09/2022 1 1 * Radiology (Routine) - New Request Specialty Diagnoses / Procedures Referred By Contac t Referred To Contact Procedures PACEMAKER/ICD INTERROGATION Julio Cesar Law HOSPICE LIAISON-INDUCTION MACHINE SETTER [address] [place] [address] Referral ID Status Reason Start Date Expiration Date V isits Requested Visits Authorized [id number] New Request 07/13/2021 08/07/2022 1 1 * Radiology (Routine) - Pending Review Specialty Diagnoses / Procedures Referred By Contac t Referred To Contact Procedures ECG Coreen Russ MD [address] [place] [address] Referral ID Status Reason Start Date Expiration Date V isits Requested Visits Authorized [id number] Pending Review 07/12/2021 08/06/2022 1 1 * (Routine) - Pending Review Specialty Diagnoses / Procedures Referred By Contac t Referred To Contact Procedures NO PHARMACOLOGICAL DVT PROPHYLAXIS Coreen Russ MD [address] [place] [address] Referral ID Status Reason Start Date Expiration Date V isits Requested Visits Authorized [id number] Pending Review 07/12/2021 08/06/2022 1 1 * (Routine) - Pending Review Specialty Diagnoses / Procedures Referred By Contac t Referred To Contact Procedures DVT/VTE RISK ASSESSMENT Coreen Russ MD [address] [place] [address] Referral ID Status Reason Start Date Expiration Date V isits Requested Visits Authorized [id number] Pending Review 07/12/2021 08/06/2022 1 1 * Radiology (Emergency) - Pending Review Specialty Diagnoses / Procedures Referred By Contac t Referred To Contact Procedures ECG Satinder Buckner MD [address] [place] [address] Referral ID Status Reason Start Date Expiration Date V isits Requested Visits Authorized [id number] Pending Review 07/12/2021 08/06/2022 1 1 [facility]ative)No reason for referral information availableBlColumbus Regional Health Services Work Phone: Reason for visit Narrative* Auth/Cert Specialty Diagnoses / Procedures Referred By Contac t Referred To Contact Diagnoses Level 1 stroke possible LVO Referral ID Status Reason Start Date Expiration Date Visits Re quested Visits Authorized [id number] 1 1 [facility] Chief Complaint and Reason for Visit Chief [...] Anterior communicating artery aneurysm Aphasia Atrial fibrillation [id number] Debility Depression Dysarthria Hypokalemia Left hemiparesis AAA (abdominal aortic aneurysm) without rupture Anemia Central cord syndrome Essential hypertension History of permanent cardiac pacemaker placement Hypertension 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 Neurogenic bladder Neurogenic bowel Neuropathy 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.9) Paraplegia Sick sinus syndrome Anterior communicating artery aneurysm Aphasia Atrial fibrillation [id number] Debility Hypokalemia Left hemiparesis History of permanent [...] fibrillation Sick sinus syndrome Aphasia Atrial fibrillation [id number] Debility Depression Dysarthria 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 Neurogenic bowel Hypokalemia Aphasia Atrial fibrillation [id number] Debility 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 Neurogenic bowel Hypokalemia Aphasia Atrial fibrillation [id number] Chronic anticoagulation Debility Depression Dysarthria Heme + stool [id number] Normochromic normocytic anemia Pressure ulcer Incomplete quadriplegia [...] Pacemaker Sick sinus syndrome Aphasia Atrial fibrillation [id number] Depression Dysarthria 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 Neurogenic bowel Hypokalemia Aphasia Atrial fibrillation [id number] 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 Neurogenic bowel Hypokalemia Aphasia Atrial fibrillation [id number] Chronic anticoagulation Debility Depression Dysarthria Heme + stool [id number] Iron deficiency anemia Normochromic normocytic anemia Pressure [...] Pacemaker Sick sinus syndrome Aphasia Atrial fibrillation [id number] Depression Dysarthria 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 Neurogenic bowel Hypokalemia Aphasia Atrial fibrillation [id number] 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 Neurogenic bowel Hypokalemia Aphasia Atrial fibrillation [id number] Chronic anticoagulation Debility Depression Dysarthria Heme + stool [id number] Iron deficiency anemia Normochromic normocytic anemia Pressure [...] Pacemaker Sick sinus syndrome Aphasia Atrial fibrillation [id number] Depression Dysarthria 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 Neurogenic bowel Hypokalemia Aphasia Atrial fibrillation [id number] 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 Neurogenic bowel Hypokalemia Aphasia Atrial fibrillation [id number] Chronic anticoagulation Debility Depression Dysarthria Heme + stool [id number] Iron deficiency anemia Normochromic normocytic anemia Pressure [...] Will Yes March 29 5:33pm Power of Conservation Agent Yes March 29, 2019 5:33pm Advance Directive Response Recorded Date/ Time Advance Directives Yes February 3:16pm Living Will Yes July 12, 2021 9:42am Power of Conservation Agent Yes July 12 9:42am Latest Code Status on File Code Status Date Activated Date Inactivated Comments Full Code 07/16/2021 2:56 PM Full Code 02/19/2015 5:46 PM 04/03/2015 4:31 PM Full Code 02/17/2015 5:02 PM 02/19/2015 5:46 PM Advance Directive Response Recorded Date/ Time Name of Medical Power of Conservation Agent ZACH AQUINO July 12, 2021 9:42am Advance Directives Yes February 3:16pm Living Will Yes July 18, 2021 12 :44pm Power of Conservation Agent Yes July 18, 2021 12:44pm Advance Directive Response Recorded Date/ Time Name of Medical Power of Conservation Agent ZACH AQUINO July 12, 2021 9:42am Name of Medical Power of Conservation Agent Zach Aquino (s pouse) July 18, 2021 12:44pm Advance Directives Yes February 3:16pm Living Will Yes July 25, 2021 8 :30am Power of Conservation Agent Yes July 25, 2021 8:30am Advance Directive Response Recorded Date/ Time Name of Medical Power of Conservation Agent ZACH AQUINO July 12, 2021 9:42am Name of Medical Power of Conservation Agent Zach Aquino (spouse) July 18, 2021 12:44pm Name of Medical Power of Conservation Agent zach July 25, 2021 8:30am Name of Medical Power of Conservation Agent Bulmaro Aquino and Zach Aquino August 17, 2021 5:02pm Name of Medical Power of Conservation Agent UNABLE TO ANSWER September 07, 2021 10:00am Advance Directives Yes February 3:16pm Living Will Yes September 07, 2021 10:00am Power of Conservation Agent Yes September 07 10:00am Advance Directive Response Recorded Date/ Time Advance Directives Yes February 2:16pm Living Will Yes September 07, 2021 9:00am Power of Conservation Agent Yes September 07 9:00am Advance Directive Response Recorded Date/ Time Advance Directives Yes February 3:16pm Living Will No August 25, 2022 2:16pm Power of Conservation Agent No August 25 2:16pm Advance Directive Response Recorded Date/ Time Advance Directives Yes February 3:16pm Living Will No October 15, 2022 3:54pm Power of Conservation Agent No October 15 3:54pm Advance Directive Response Recorded Date/ Time Living Will Yes March 28 1:45pm Do you have a Healthcare Power of Conservation Agent? Yes March 28, 2024 1:45pm Name of Medical Power of Conservation Agent Bartolo March 28, 2024 1:45pm Advance Directives Yes February 3:16pm Advance Directive Response Recorded Date/ Time Advance Directives Yes February 3:16pm Reason for Referral Specialty Diagnoses / Procedures Referred By Contac t Referred To Contact Procedures PACEMAKER/ICD INTERROGATION Shanika Jose MD [address] [address] Referral ID Status Reason Start Date Expiration Date V isits Requested Visits Authorized [id number] New Request 07/23/2021 08/17/2022 1 1 Specialty Diagnoses / Procedures Referred By Contac t Referred To Contact Procedures DVT/VTE RISK ASSESSMENT Shanika Jose MD [address] [address] Referral ID Status Reason Start Date Expiration Date V isits Requested Visits Authorized [id number] New Request 07/22/2021 08/16/2022 1 1 Specialty Diagnoses / Procedures Referred By Contac t Referred To Contact Procedures ECG Michael Roblero MD [address] [place] [id number] Referral ID Status Reason Start Date Expiration Date V isits Requested Visits Authorized [id number] New Request 07/22/2021 08/16/2022 1 1 Summary Purpose Additional Source Comments Goals (unrecognized section and content) Goals may be documented in a n alternate section Scheduled Active and Recently Administ ered Medications (unrecognized section and content) Medication Order 07/16/2021 07/17/2021 07/18/2021 aspirin chewable tablet 81 mg 81 mg, Oral, DAILY, First dose on Wed07/13/21 at 1415, Until Discontinued 751 (Given - Provider: Sondra Delaney RN) 914 (Given - Provider: Marc Mancilla RN) 0858 (Given - Provider: Steffi Worrell, PRUDENCIO) atorvastatin (LIPITOR) tablet 40 mg 40 mg, Oral, DAILY AT BEDTIME, First dose on Wed07/13/21 at 2100, Until Discontinued 2128 (Given - Provider: Catarino Leon RN) 2001 (Given - Provider: Catarino Leon RN) baclofen (LIORESAL) tablet 10 mg 10 mg, Oral, DAILY AT BEDTIME, First dose on Wed07/14/21 at 2100, Until Discontinued 2128 (Given - Provider: Catarino Leon RN) 2003 (Given - Provider: Catarino Leon RN) benzocaine-docusate sodium (ENEMEEZ) 20-283 MG 1 [...] Until Discontinued, 751 (Given - Provider: Sondra Delaney, PRUDENCIO) carveDILOL (COREG) tablet 6.25 mg (COMPLETED) 6.25 [...] 08 (Given - Provider: Steffi Worrell, PRUDENCIO) finasteride [...] Sondra Delaney RN)2128 (Given - Provider: Catarino Leon RN) 914 (Given - Provider: Marc Mancilla, PRUDENCIO)2000 (Given - Provider: Catarino Leon RN) 858 (Given - Provider: Steffi Worrell, PRUDENCIO) NIFEdipine (PROCARDIA XL) tablet XL 30 mg 30 mg, Oral, DAILY, First dose on Wed07/17/21 at 0900, Until Discontinued, Slow release product. Do not chew or crush. 09 (Given - Provider: Marc Mancilla RN) 0858 (Given - Provider: Steffi Worrell, PRUDENCIO) Perflutren Lipid Microsphere (DEFINITY) 1.5 mL in Normal Saline Flush 0.9% 8.5 mL (COMPLETED) 10 mL, Intravenous, ONCE, 1 dose, On Wed07/17/21 at 0945, FOR ECHO PROCEDURE ONLY Dilute 1.5 mL of Definity with 8.5 mL of 0.9% sodium chloride and draw up in a 10 mL syringe. Administration during procedure as directed by physician. Recorded MAR dose is cumulative amount given during procedure., Echo Procedure 906 (Given - Radiology - Provider: Lora Jane RN - Comment: [id number]) senna (SENOKOT) tablet 8.6 mg(Linked Group 2) 8.6 mg, Oral, DAILY EVERY MORNING, First dose on 07/12/21 at 1315, Until Discontinued, Hold if BM in last 2 hours. 075 (Given - Provider: Sondra Delaney RN) 0914 (Given - Provider: Marc Mancilla, PRUDENCIO) 0858 (Given - Provider: Steffi Worrell, PRUDENCIO) senna (SENOKOT) tablet 8.6 mg(Linked Group 2) 8.6 mg, Per NG tube, DAILY EVERY MORNING, First dose on 07/12/21 at 1315, Until Discontinued, Hold if BM in last 2 hours. 075 (See Alternative - Provider: Sondra Delaney RN) 913 (See Alternative - Provider: Marc Mancilla RN) 0858 (See Alternative - Provider: Steffi Worrell, PRUDENCIO) Tamsulosin HCl (FLOMAX) capsule 0.4 mg 0.4 mg, Oral, DAILY AT BEDTIME, First dose on 07/14/21 at 2100, Until Discontinued, Slow release product. [...] (See Alternative - Provider: Catarino Leon, PRUDENCIO) acetaminophen (TYLENOL) tablet 325 mg(Linked Group 3) [...] (See Alternative - Provider: Catarino Leon RN) hydrALAZINE (APRESOLINE) injection 10 mg 10 mg, Intravenous, EVERY 1 HOUR NEEDED, Starting on 07/14/21 at 0847, Until Wed07/18/21 at 1235, Other, SBP >220, HR <60 labetalol (NORMODYNE) injection 10 mg 10 mg, Intravenous, EVERY 1 HOUR NEEDED, Starting on 07/14/21 at 0847, Until Wed07/18/21 at 1235, SBP [...] Per NG tube, DAILY NEEDED, Starting on Wed07/12/21 at 1306, Until Wed07/18/21 at 1235, Constipation [...] 926 (Given - Provider: Patti Lopez RN) 1003 (Given - Provider: Catrachito Bardales, PRUDENCIO) atorvastatin (LIPITOR) tablet 40 mg 40 mg, Oral, DAILY AT BEDTIME, First dose on Wed07/22/21 at 2100, Until Discontinued 2129 (Given - Provider: Catrachito Pedraza RN) 2022 (Given - Provider: Angie Mcclelland, PRUDENCIO) carveDILOL (COREG) tablet 12.5 mg 12.5 mg, Oral, EVERY 12 HOURS, First dose on Wed07/22/21 at 2100, Until Discontinued, 926 (Given - Provider: Patti Lopez RN)2129 (Given - Provider: Catrachito Pedraza RN) 1003 (Given - Provider: Catrachito Bardales RN)2022 (Given - Provider: Angie Mcclelland, PRUDENCIO) citalopram (CELEXA) tablet 40 mg 40 mg, [...] Wed07/26/21 at 0900, , Indications: DVT/PE prophylaxis 100 (Given - Provider: Catrachito Bardales RN) gabapentin (NEURONTIN) capsule 200 mg 200 mg, Oral, 3 TIMES DAILY, First dose (after last modification) on Wed07/23/21 at 2100, Until Discontinued 2129 (Given - Provider: Catrachito Pedraza RN) 100 (Given - Provider: Catrachito Bardales RN)144 (Given - Provider: Catrachito Bardales RN)2022 (Given [...] 1817 (Given - Provider: Mary Hansen RN) 100 (Given - Provider: Catrachito Bardales RN)173 (Given [...] 926 (Given - Provider: Patti Lopez RN) 1003 (Given - Provider: Catrachito Bardales RN) potassium [...] Until Discontinued 925 (Given - Provider: Patti Lopez RN) 1003 (Given - Provider: Catrachito Bardales, PRUDENCIO) PRN Medication Order 07/23/2021 07/24/2021 07/25/2021 acetaminophen (TYLENOL) tablet 650 mg 650 mg, Oral, EVERY 6 HOURS NEEDED, Starting on Wed07/22/21 at 2004, Until Wed07/25/21 at 0739, Mild Pain, Oral temp > 100.4 F, Maximum dose of acetaminophen is 4000 mg from all sources in 24 hours. 2130 (Given - Provider: Catrachito Pedraza, PRUDENCIO) guaiFENesin (ROBITUSSIN) oral solution 400 mg 400 mg, Oral, EVERY 6 HOURS NEEDED, Starting on Wed07/22/21 at 2004, Until Wed07/25/21 at 0739, Cough, Congestion melatonin tablet 6 mg 6 mg, Oral, DAILY AT BEDTIME NEEDED, Starting on Wed07/22/21 at 2004, Until Wed07/25/21 at 0739, Insomnia senna (SENOKOT) tablet 8.6 mg 8.6 mg, Oral, EVERY 12 HOURS NEEDED, Starting on Wed07/22/21 at 2004, Until Wed07/25/21 at 0739, Constipation If No [...] Care Teams (unrecognized sec tion and content) Certified Caregiver Relationship Specialty Start Date End Date Mallory Mcpherson DO [address], [place] [id number] PCP - General Family Medicine 02/17/15 Ignacio Quan MD PCP - Referring 1 Cardiovascular Medicine 02/18/15 Heath Mcdowell MD [address] [place] [address] PCP - Referring 2 Neurological Surgery 02/18/15 Caesar Doshi MD [address] [place] [id number] Urology 04/02/15 Heath Mcdowell [address] [facility] [place] [address] 02/18/15 07/13/21 Certified Caregiver Relationship Specialty Start Date End Date Mallory Mcpherson DO [address] [facility] [place] [address] PCP - General Family Medicine 02/17/15 Ignacio Quan MD PCP - Referring 1 Cardiovascular Medicine 02/18/15 Heath Mcdowell MD [address], [place] [id number] PCP - Referring 2 Neurological Surgery 02/18/15 Caesar Doshi MD [address] [place] [address] [address] [place], [place] [phone] Urology 04/02/15 Certified Caregiver Relationship Specialty Start Date End Date Kevin Correia) [facility] [address] [place], [place] [id number] 01/03/02 Team Status: Active Member Role Status Dates Dr. Mallory Mcpherson DO Family Provider Active Dr. Mallory Mcpherson DO Primary Care Provider Active Team Status: Inactive Member Role Status Dates Dr. Mallory Mcpherson DO Primary Care Provider, Referri ng Provider Active Alessandra Melchor KILN SETTER, KILN SETTER-C Attending Provider Active Team Status: Inactive Member Role Status Dates Dr. Mallory Mcpherson DO Primary Care Provider, Referri ng Provider Active Saundra Hernandez Active Dr. Igncaio Quan MD Attending Provider Active Team Status: [...] DO Primary Care Provider Active Alessandra Melchor KILN SETTER, KILN SETTER-C Attending Provider, Referring P gurvinder Active Team [...] 2024 End: August 08, 2024 Alessandra Melchor NP, KILN SETTER-C Attending Provider Active Start: August 08, 2024 End: August 08, 2024 Dr. Miguel Carrillo DO Primary Care Provider [...] 2024 End: August 08, 2024 Alessandra Melchor KILN SETTER, KILN SETTER-C Attending Provider Active Start: August 08, 2024 End: August 08, 2024 Dr. Miguel Carrillo DO Primary Care Provider [...] Expiration Date Visits Re quested Visits Authorized [id number] 1 1 Reason Comments OT EVAL Specialty Diagnoses / Procedures Referred By Contac t Referred To Contact [facility] Diagnoses Quadriplegia, C5-C7 incomplete Procedures [facility] MIN Mallory Mcpherson DO [address] [place] [id number] [facility] [address] [place] [address] Referral ID Status Reason Start Date Expiration Date V isits Requested Visits Authorized [id number] Authorized 03/15/2021 03/14/2022 99 99 Care Team (unrecognized sect ion and content) Care Team Personnel Name: MALLORY MCPHERSON DO Position: P4 Physician - Primary Care Med Service: Active Provider Member Role: Primary Care Physician Address: Address: [address] [place] [address] Care Team Related Persons Name: ZACH AQUINO Address: Home [address] [place], [place] [id number] [place] (unrecognized sect ion and content) No Status Records FoundNo Status Records FoundNo Status Records FoundNo Status Records FoundNo Status Records Found INFORMATION SOURCE (unrecogn ized section and content) DATE CREATED AUTHOR 02/14/2022 [facility] DATE CREATED AUTHOR AUTHOR'S ORGANIZ ATION 04/10/2022 [facility] DATE CREATED AUTHOR AUTHOR'S ORGANIZ ATION 10/05/2023 [facility] ([place]) DATE CREATED AUTHOR AUTHOR'S ORGANIZ ATION 02/14/2024 [facility] DATE CREATED AUTHOR AUTHOR'S ORGANIZ ATION 11/13/2024 [facility] Source Comments (unrecognize d section and content) In the event this informatio n is protected by the Federal Confidentiality of Alcohol and Drug Abuse Patient Records regulations: The Federal rules restrict any use of the information to criminally investigate or prosecute any alcohol or drug abuse patient.[facility] FOR RECORDS PERTAINING TO PATIENTS WHO ARE [...] BE BASED ON THE PRIMARY CLINICAL RECORDS. [employer] [facility]. provides no warranty or guarantee of the accuracy or completeness of information in this document.
--- OUTSIDE RECORDS SUMMARY | 2024-11-13 21:07 | XMS RPT_ITS | CCD ---
Author Organization [facility] ion [facility] Care Team Providers Care Vat Packer Name Role Phone [place] Unavailable Unavailable [...] Saundra Hernandez Attending Provider Unavailable Ruiz OCHOA, STANDARDS ANALYST-C Alessandra Attending Provider MALLORY MCPHERSON DO Primary [...] Care Provider Dr. Mallory Mcpherson Referring Provider [phone] Ruiz OCHOA, GABRIELA-C Alessandra Attending Provider Dr. Ignacio Quan Attending Provider [phone] YUMIKO MARCUM Attending Unavailable MALLORY MCPHERSON Referring Unavailable Dr. Mallory Mcpherson Primary Care Provider Dr. Mallory Mcpherson Referring Provider [phone] Ruiz OCHOA, GABRIELA-C Alessandra Attending Provider Dr. Iker Ratliff Attending Provider MD Sally Juaquin Emergency Provider Dr. Marc Cantu Attending Provider Unavailable Dr. Marc Cantu Admit Provider Unavailable Dr. Marc Cantu Other Provider Unavailable Dr. Mallory Mcpherson Primary Care Provider Dr. Mallory Mcpherson Referring Provider [phone] Dr. Mallory Mcpherson Primary Care Provider Dr. Mallory Mcpherson Referring Provider [phone] Ruiz OCHOA, GABRIELA-C Alessandra Attending Provider Dr. Mallory Mcpherson Primary Care Provider Dr. Iker Ratliff Attending Provider Dr. Mallory Mcpherson Referring Provider [phone] Ruiz STANDARDS ANALYST, STANDARDS ANALYST-C Alessandra Attending Provider [place] DO, MALLORY Attending Unavailable [place] DO, MALLORY Primary Care Unavailable JESSICA POLISHING MACHINE OPERATOR HELPER-ASSISTANT MAINTENANCE MANAGER, KIRBY Deal Attending Enoc lable [place] DO, MALLORY Primary Care Unavailable [place] DO, MALLORY Attending Unavailable [place] DO, MALLORY Primary Care Unavailable [place] DO, MALLORY Attending Unavailable [place] DO, MALLORY Primary Care Unavailable [place] DO, MALLORY Primary Care Unavailable [place] DO, MALLORY Attending Unavailable [place] DO, MALLORY Primary Care Unavailable CLAUDE POLISHING MACHINE OPERATOR HELPER-ASSISTANT MAINTENANCE MANAGER, SOMMER Attending Enoc Mcpherson DO, Dr. Griffiths Primary Care Provider [phone] Sami PITTS, Dr. Luis Carlos Tapia Admit Provider Sami PITTS, Dr. Luis Carlos Tapia Attending Provider Dr. Mallory Stuart MD Other Provider Glenda PITTS, Dr. Caesar Busch Other Provider Sami PITTS, Dr. Luis Carlos Tapia Referring Provider [phone]. Mallory Mcpherson DO Referring Provider Ruiz STANDARDS ANALYST-C, Alessandra Attending Provider [phone] Lorena PEREZ, [...] PITTS, Dr. Luis Carlos Tapia Referring Provider [phone] Ky PEREZ, Dr. Griffiths Primary Care Provider [phone] Sami PITTS, Dr. Luis Carlos Tapia Attending Provider [phone] Sami PITTS, Dr. Luis Carlos Tapia Referring Provider Dr. Miguel Carrillo DO Attending Provider [place] PEREZ, Dr. Griffiths Primary Care Provider [phone] Sami PITTS, Dr. Luis Carlos Tapia Attending [...] Attending Unavailable Lorena, Miguel Primary Care Unavailable [place] Attending Unavailable Lorena, Miguel Primary Care Unavailable [...] [ciprofloxacin] Drug Allergy 07-13-19 Weal (disorder), Hives [facility] (20 sources) Sulfamethoxazole Drug Allergy 07-13-19 22 PT UNSURE OF REACTION [facility] (20 sources) Trimethoprim Drug Allergy 07-13-19 PT UNSURE OF REACTION [facility] (9 sources) Sulfamethoxazole / Trimethoprim; Translations: [Sulfamethoxazole / Trimethoprim] Drug Allergy 07-16-19 Eruption of skin (disorder), Antimicrobial susceptibility test (procedure) [facility] (20 sources) cefTRIAXone; Translations: [ceftriaxone] Drug Allergy 09-09-19 Eruption of skin (disorder) [facility] (1 source) cefTRIAXone Drug Allergy 11-14-19 [facility] (1 source) Ciprofloxacin Drug Allergy 11-14-19 [facility] (1 source) Sulfamethoxazole Drug Allergy 11-14-19 [facility] (1 source) Trimethoprim Drug Allergy 11-14-19 [facility] Medications Current Medications Medication Drug Class(es) [...] tab(s), 0 Refill(s), 01/03/22 13:59:00 EDT, Pharmacy: [facility], 175.3, cm, 10/02/21 14:21:00 EDT, Height, 106 Start Date: 12/24/21 Stop Date: 01/03/22 Status: Ordered Ggtkr-Ihnk-Ndkm i-Nbotak-Vp-Min (Celestino (With Collagen)) 7-7-1.5 gram Powder In Packet (18 sources) Start: 08-15-2021 Iinrx-Momp-Csejj-Collag-Mv -Min (Celestino (With Collagen)) 7-7-1.5 gram Powder In Packet Active 1 PACKET PO TWICE DAILY WITH MEALS 0 August 15, 2021 2:50pm Start: 08-15-2021 End: 08-17-2021 Rlnsc-Tdui-Cwzdn-Collag-Mv-M in (Celestino (With Collagen)) 7-7-1.5 gram Powder In Packet Discontinued 1 NMA PO TWICE DAILY WITH MEALS 0 August 15, 2021 12:00am August 17, 2021 4:32pm Start: 08-15-2021 End: 08-17-2021 Nakte-Sjlt-Xdsvf-Collag-Mv-M in (Celestino (With Collagen)) 7-7-1.5 gram Powder In Packet Discontinued 1 NMA PO TWICE DAILY WITH MEALS 0 August 15, 2021 12:00am August 17, 2021 4:32pm Start: 08-15-2021 End: 08-17-2021 Bpphs-Upgk-Ddjgj-Collag-Mv-M in (Celestino (With Collagen)) 7-7-1.5 gram Powder In Packet Discontinued 1 PACKET PO TWICE DAILY WITH MEALS 0 August 14, 2021 11:00pm August 17, 2021 3:32pm Start: 08-15-2021 End: 08-17-2021 Flkir-Odtc-Itdlc-Collag-Mv-M in (Celestino (With Collagen)) 7-7-1.5 gram Powder [...] qDay, # 100 cap(s), 3 Refill(s), Pharmacy: [facility], 175, cm, 10/11/23 16:35:00 EDT, Height, kg, 10/11/23 16:35:00 EDT, Dosing Weight Start Date: 10/11/23 Stop Date: 11/14/24 Status: Ordered Start: 01-06-2023 citalopram 30 mg oral capsule Dose : 30 mg = 1 cap(s), Oral, qDay, # 90 cap(s), 3 Refill(s), Pharmacy: [facility], 175.5, cm, 01/06/23 14:10:00 EDT, Height, [...] qDay, # 90 cap(s), 3 Refill(s), Pharmacy: [facility], 175.3, cm, 10/02/21 14:21:00 EDT, Height [...] 0 Refill(s), 12/05/23 3:25:00 PM EDT, Pharmacy: [facility], Cellulitis of right lower leg, 170, [...] BID, # 180 tab(s), 0 Refill(s), Pharmacy: [facility], Neuropathy, 177, cm, 07/07/23 13:05:00 EDT, Height, 111.4, kg, 07/07/23 13:05:00 EDT, Dosing Weight Start Date: 07/07/23 Stop Date: 10/05/23 Status: Ordered Start: 03-24-2023 End: 06-22-2023 gabapentin 600 mg oral table t Dose : 600 mg = 1 tab(s), Oral, BID, # 180 tab(s), 0 Refill(s), Pharmacy: [facility], Neuropathy, 175.5, cm, 01/06/23 14:10:00 EDT, Height, 123.7, kg, 01/06/23 14:10:00 EDT, Dosing Weight Start Date: 03/24/23 Stop Date: 06/22/23 Status: Ordered Start: 06-16-2022 End: 09-14-2022 gabapentin 600 mg oral table t Dose : 600 mg = 1 tab(s), Oral, TID, # 270 tab(s), 0 Refill(s), Pharmacy: [facility], Neuropathy, 175.5, cm, 01/08/22 14:03:00 EDT, [...] TID, # 270 tab(s), 0 Refill(s), Pharmacy: [facility], Neuropathy, 175.3, cm, 10/02/21 14:21:00 EDT, [...] Start: 04-04-2015 take 2 tablets by mo [facility] twice daily GABAPENTIN 100 MG CAPS Two tablets by mouth twice daily GABAPENTIN [id number] Ignacio Quan MD herbal/nutritional product (4 sources) [...] One tablet by mouth twice daily LISINOPRIL [id number] Ignacio Quan MD Start: 04-02-2015 End: 07-18-2021 take 1 tablet by mouth once daily LISINOPRIL 5 MG TABS One tablet by mouth daily LISINOPRIL [id number] Zach Del Rosario RN Magnesium Hydroxide (1 [...] 2021 8:49pm Start: 04-04-2015 End: 05-15-2015 NYSTATIN [id number] UNIT/GM POWD apply 3 times daily NYSTATIN [id number] Zach Del Rosario RN Start: 04-04-2015 End: 05-15-2015 NYSTATIN [id number] UNIT/GM POWD apply 3 times daily NYSTATIN [id number] Zach Del Rosario RN Start: 04-02-2015 End: 07-22-2021 nystatin [id number] UNIT/GM Powd er 1 Application by Topical [...] One tablet by mouth daily POTASSIUM CHLORIDE [id number] Blaire Santiago RN take 1 tablet by [...] every 4 hours as needed HYDROCODONE-ACETAMI NOPHEN [id number] Blaire Santiago RN Start: 04-04-2015 take 1 tablet by augie th every four hours as needed NORCO 5-325 MG TABS 1 tablet by mouth ev melecio 4 hours as needed HYDROCODONE-ACETAMINOPHEN [id number] Araseli Genao RN Start: 04-04-2015 End: 04-30-2016 take 1 tablet by mouth every four hours as needed NORCO 5-325 MG TABS 1 tablet by mouth ev melecio 4 hours as needed HYDROCODONE-ACETAMINOPHEN [id number] Blaire Santiago RN apixaban 5 mg oral [...] 17, 2021 5:39pm March 17, 2021 5:50pm Zjvsr-Ubwj-Scmcc-Collag-Mv-M in (Celestino (With Collagen)) 7-7-1.5 gram powder in packet (17 sources) Start: 08-17-2021 End: 09-03-2021 Hsffw-Wjoj-Lljog-Collag-Mv-M in (Celestino (With Collagen)) 7-7-1.5 gram powder in packet Discontinued 1 NMA PO TWICE DAILY WITH MEALS August 17, 2021 4:32pm September 03, 2021 8:46pm supplement Start: 08-17-2021 End: 09-03-2021 Nndsx-Hsyp-Blxgj-Collag-Mv-M in (Celestino (With Collagen)) 7-7-1.5 gram powder in packet Discontinued 1 NMA PO TWICE DAILY WITH MEALS August 17, 2021 4:32pm September 03, 2021 8:46pm Start: 08-17-2021 End: 09-03-2021 Knzsa-Xfxt-Bmknu-Collag-Mv-M in (Celestino (With Collagen)) 7-7-1.5 gram powder in packet Discontinued 1 PACKET PO TWICE DAILY WITH MEALS August 17, 2021 3:32pm September 03, 2021 7:46pm Start: 08-17-2021 End: 09-03-2021 Zwbjq-Iuzn-Naqvp-Collag-Mv-M in (Celestino (With Collagen)) 7-7-1.5 gram powder [...] 04, 2021 11:18am December 04, 2021 1:01pm [facility] . Start: 10-02-2021 aspirin 81 mg oral [...] 18, 2021 12:00am December 04, 2021 11:22am [facility] . atenolol 25 mg oral tablet (20 sources) beta-Adrenergic Tomás Start: 07-27-2014 End: 02-27-2015 take 0.5 tablet by mouth once daily ATENOLOL 25 MG TABS One-half tablet by mouth daily ATENOLOL [id number] Blaire Rafa Jack RN Start: 07-10-2014 End: 07-12-2014 take 1 tablet by mouth once daily ATENOLOL 50 MG TABS One half tablet by mouth daily ATENOLOL [id number] Zach Alston Carin RN Start: 06-08-2014 End: [...] mouth four times daily as needed DIAZEPAM [id number] Araseli Genao RN docusate sodium 56.6 mg/ml enema (7 sources) Start: 02-13-2024 End: 08-08-2024 Docusate Sodium (Enemeez) 283 mg/5 mL enema Discontinued 283 mg RC TWICE A DAY February 13, 2024 1:00am August 08, 2024 2:29pm constipation docusate sodium 50 mg / sennosides, assisted 8.6 mg oral tablet (20 sources) Start: [...] SOLN 40 mg subq daily ENOXAPARIN SODIUM [id number] Ignacio Quan MD Enoxaparin Sodium (LOVENOX) injection 40 mg (2 sources) Start: 07-24-2021 End: 07-25-2021 Enoxaparin Sodium (LOVENOX) injection 40 mg Start: 07-13-2021 End: 07-18-2021 Enoxaparin Sodium (LOVENOX) injection 40 mg ferrous gluconate 324 mg oral tablet (9 sources) Start: 04-04-2015 End: 08-21-2015 take 1 tablet by mouth twice daily FERROUS GLUCONATE 324 MG TABS One tablet by mouth twice daily FERROUS GLUCONATE [id number] Lulu Moreno PA-C Start: 04-04-2015 [facility] daily FERROUS GLUCONATE 324 MG TABS One tablet by mouth three times daily FERROUS GLUCONATE [id number] Zach Del Rosario RN finasteride 5 mg [...] TABS One tablet by mouth daily LISINOPRIL-HYDROCHLOROTHIAZIDE [id number] Zach Del Rosario RN hydrocortisone 0.025 mg/mg [...] labetalol (NORMODYNE) injection 10 mg lactobacillus acidophilus [id number] unt / pectin 100 mg oral tablet (20 sources) Start: 08-15-2021 End: 12-04-2021 take 1 tablet by mouth once daily Acidophilus-Pect in, [place] 25 million cell -100 mg tablet Discontinued 1 {tbl} PO DAILY August 17, 2021 4:32pm December 04, 2021 11:18am Supplement LORazepam 0.5 mg oral tablet (6 sources) Benzodiazepine Start: 02-27-2015 End: 04-04-2015 LORAZEPAM 0.5 MG TABS as needed LORAZEPAM [id number] Zach Del Rosario RN losartan potassium 100 [...] TABS One tablet by mouth daily MELOXICAM [id number] Blaire Santiago RN Menthol / Zinc Oxide [...] qDay, # 100 tab(s), 3 Refill(s), Pharmacy: [facility], 177, cm, 07/07/23 13:05:00 EDT, Height, [...] qDay, # 90 tab(s), 3 Refill(s), Pharmacy: [facility], 175.5, cm, 07/08/22 15:40:00 EDT, Height, [...] qDay, # 45 tab(s), 3 Refill(s), Pharmacy: [facility], 175.3, cm, 04/16/21 9:09:00 EST, Height, kg, 04/16/21 9:09:00 EST, Dosing Weight Start Date: 04/16/21 Status: Ordered Start: 04-02-2020 NIFEdipine 30 mg oral tablet, extended release Dose : 15 mg = 0.5 tab(s), Oral, qDay, # 45 tab(s), 3 Refill(s), Pharmacy: [facility], 175.3, cm, 12/14/19 [...] th once daily PROCARDIA XL 30 MG [id number] One tablet by mouth daily NIFEDIPINE [id number] Ignacio Quan MD Start: 05-06-2015 take 1 tablet by augie th once daily PROCARDIA XL 60 MG [id number]-TMR One half tablet by mouth daily NIFEDIPINE [id number] Steffi Wing RN Start: 05-06-2015 PROCARDIA XL 6 0 MG [id number]-GRM One half tablet by mouth daily NIFEDIPINE [id number] Steffi Wing RN Start: 07-10-2014 End: 02-27-2015 take 0.5 tablet by mouth once daily NIFEDIPINE ER 60 MG FX08K-NUN One-half tablet by mouth daily NIFEDIPINE [id number] Blaire Santiago RN nitrofurantoin, macrocrystals 100 mg [...] 0 Refill(s), 10/05/23 2:11:00 PM EDT, Pharmacy: [facility], UTI (urinary tract infection), 171, cm, 07/08/23 16:22:00 EDT, Height, 111.4, kg, 07/08/23 16:22:00 EDT, Dosing Weight Start Date: 09/28/23 Stop Date: 10/05/23 Status: Ordered Start: 03-24-2023 End: 03-31-2023 nitrofurantoin macrocrystals -monohydrate 100 mg oral capsule Dose : 100 mg = 1 cap(s), Oral, BID, Take with food, X 7 day(s), # 14 cap(s), 0 Refill(s), 03/31/23 3:25:00 PM EST, Pharmacy: [facility], UTI (urinary tract infection), bacterial, 175.5, [...] by mouth four times daily NUTRITIONAL SUPPLEMENTS [id number] Zach Del Rosario RN Start: 04-04-2015 End: 04-12-2015 ENSURE ACTIVE LIQD One can b y mouth four times daily NUTRITIONAL SUPPLEMENTS [id number] Araseli Genao RN NUTRITIONAL SUPPLEMENTS (4 sources) Start: 04-04-2015 ENSURE ACTIVE LIQD One can by mouth four times daily NUTRITIONAL SUPPLEMENTS [id number] Zach Del Rosario RN Start: 04-04-2015 End: 04-12-2015 ENSURE ACTIVE LIQD One can b y mouth four times daily NUTRITIONAL SUPPLEMENTS [id number] Araseli Genao RN Nutritional Supplements (ENSURE COMPLETE PO) (2 sources) Nutritional Supp lements (ENSURE COMPLETE PO) take 1 Can by mouth 4 times daily. 0 Active nystatin 077237 unt/ml / triamcinolone acetonide 1 mg/ml topical [...] and beneath the foreskin Perflutren Lipid Microsphere (DEFINHomeRun) 1.5 mL in Normal Saline Flush 0.9% [...] 2024 8:46pm bacteremia/UTI Start: 10-04-2023 End: 02-12-2024 Xcraimmhzkcp-Makbkqafdo-Cfqr rs (Zosyn In Dextrose (Iso-Osm)) 3.375 gram/50 mL piggyback Discontinued 3.375 g IV Q8H 5 0 October 04, 2023 12:00am February 12, 2024 3:54pm stop date 10/09/23. Dx: pseudomonas infection polyethylene glycol (MIRALAX) packet 17 g (1 source) Start: 07-12-2021 End: 07-18-2021 polyethylene glycol (MIRALAX) packet 17 g polyethylene glycol 3350 57611 mg powder for oral solution (1 source) [...] One tablet by mouth daily SENNOSIDES CAPS [id number] Blaire Santiago RN Start: 04-04-2015 take 1 tablet by augie th once daily SENNA CAPS One tablet by mouth daily SENNOSIDES CAPS 52041481354 Zach Del Rosario RN Start: 02-27-2015 take 1 tablet by augie th twice daily SENNA 8.6 MG TABS One tablet by mouth twice daily SENNOSIDES 96128013507 Blaire Santiago RN Start: 02-27-2015 End: 04-04-2015 take 1 tablet by mouth twice daily SENNA 8.6 MG TABS One tablet by mouth twice daily SENNOSIDES 48124646549 Zach Del Rosario RN SENNOSIDES CAPS (4 sources) Start: 04-04-2015 End: 04-30-2016 take 1 tablet by mouth once daily SENNA CAPS One tablet by mouth daily SENNOSIDES CAPS 56946025420 Blaire Santiago RN Start: 04-04-2015 take 1 tablet by augie th once daily SENNA CAPS One tablet by mouth daily SENNOSIDES CAPS [id number] Zach Del Rosario RN sennosides, assisted 8.6 mg oral tablet (20 sources) Start: [...] One tablet by mouth twice daily SENNOSIDES 16448284848 Blaire Santiago RN take 2 tablets by mo [facility] once daily senna 8.6 MG tablet Take 17.2 mg by mouth daily. 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 Improved significantly since admission. Written [...] Absolute Lymph 0.58 X10 3/uL Low 0.83-4.51 [facility] Comment on above: Performed By: #### L 100.0100, L503.6005, L500.4050, L300.3900, L300.4310 ####[facility] [address] [place], [address] Absolute Neut 9.8 X10 3/uL High 2.0-7.7 [facility] Comment on above: Performed By: #### L 100.0100, L503.6005, L500.4050, L300.3900, L300.4310 ####[facility] [address] [place], [address] Basophils/100 WBC (Bld) 0.3 % Normal 0-1 [facility] Comment on above: Performed By: #### L 100.0100, L503.6005, L500.4050, L300.3900, L300.4310 ####[facility] [address] [place], [address] Eosinophils/100 WBC (Bld) 0.8 % Normal 0-5 [facility] Comment on above: Performed By: #### L 100.0100, L503.6005, L500.4050, L300.3900, L300.4310 ####[facility] [address] [place], [address] Erythrocyte distribution width (RBC) [Ratio] 14.0 % Normal 11.6-14.6 [facility] Comment on above: Performed By: #### L 100.0100, L503.6005, L500.4050, L300.3900, L300.4310 ####[facility] [address] [place], [address] Hematocrit (Bld) [Volume fraction] 34.1 % Low 40-54 [facility] Comment on above: Performed By: #### L 100.0100, L503.6005, L500.4050, L300.3900, L300.4310 ####[facility] [address] [place], [address] Hemoglobin (Bld) [Mass/Vol] 12.0 g/dL Low 13.0-16.5 [facility] Comment on above: Performed By: #### L 100.0100, L503.6005, L500.4050, L300.3900, L300.4310 ####[facility] [address] [place], [address] IG% 0.400 Normal 0.0-0.9 [facility] Comment on above: Result Comment: IG% - Immature Granulocytes (promyelocytes, myelocytes andmetamyelocytes) > 1% indicates that a LEFT SHIFT is Present. Performed By: #### L 100.0100, L503.6005, L500.4050, L300.3900, L300.4310 ####[facility] [address] [place], [address] Lymphocytes/100 WBC (Bld) 5.0 % Low 19-41 [facility] Comment on above: Performed By: #### L 100.0100, L503.6005, L500.4050, L300.3900, L300.4310 ####[facility] [address] [place], [address] MCH (RBC) [Entitic mass] 31.2 pg Normal 27.0-32.0 [facility] Comment on above: Performed By: #### L 100.0100, L503.6005, L500.4050, L300.3900, L300.4310 ####[facility] [address] [place], [address] MCHC (RBC) [Mass/Vol] 35.2 g/dL Normal 32-36 [facility] Comment on above: Performed By: #### L 100.0100, L503.6005, L500.4050, L300.3900, L300.4310 ####[facility] [address] [place], [address] MCV (RBC) [Entitic vol] 88.6 fL Normal 80-94 [facility] Comment on above: Performed By: #### L 100.0100, L503.6005, L500.4050, L300.3900, L300.4310 ####[facility] [address] [place], [address] Monocytes/100 WBC (Bld) 9.6 % Normal 0-10 [facility] Comment on above: Performed By: #### L 100.0100, L503.6005, L500.4050, L300.3900, L300.4310 ####[facility] [address] [place], [address] Neutrophils/100 WBC (Bld) 83.9 % High 47-70 [facility] Comment on above: Performed By: #### L 100.0100, L503.6005, L500.4050, L300.3900, L300.4310 ####[facility] [address] [place], [address] Nucleated RBC (Bld) [#/Vol] 0 10*3/uL Normal 0-5 [facility] Comment on above: Performed By: #### L 100.0100, L503.6005, L500.4050, L300.3900, L300.4310 ####[facility] [address] [place], [address] Platelet mean volume (Bld) [Entitic vol] 10.5 fL Normal 6.2-12.0 [facility] Comment on above: Performed By: #### L 100.0100, L503.6005, L500.4050, L300.3900, L300.4310 ####[facility] [address] [place], [address] Platelets (Bld) [#/Vol] 145 10*3/uL Low 150-450 [facility] Comment on above: Performed By: #### L 100.0100, L503.6005, L500.4050, L300.3900, L300.4310 ####[facility] [address] [place], [address] RBC (Bld) [#/Vol] 3.85 10*6/uL Low 4.6-6.2 [facility] Comment on above: Performed By: #### L 100.0100, L503.6005, L500.4050, L300.3900, L300.4310 ####[facility] [address] [place], [address] RDW SD 44.8 fl High 35.1-43.9 [facility] Comment on above: Performed By: #### L 100.0100, L503.6005, L500.4050, L300.3900, L300.4310 ####[facility] [address] [place], [address] WBC (Bld) [#/Vol] 11.7 10*3/uL High 4.4-11.0 [facility] Comment on above: Performed By: #### L 100.0100, L503.6005, L500.4050, L300.3900, L300.4310 ####[facility] [address] [place], [address] Comprehensive Metabolic Prof ilon 11-13-2024 Albumin [Mass/Vol] 4.0 g/dL Normal 3.4-4.8 [facility] Comment on above: Performed By: #### L 100.0100, L503.6005, L500.4050, L300.3900, L300.4310 ####[facility] [address] [place], [address] Albumin/Globulin [Mass ratio] 1.3 {ratio} Normal 0.9-2.4 [facility] Comment on above: Performed By: #### L 100.0100, L503.6005, L500.4050, L300.3900, L300.4310 ####[facility] [address] [place], [address] ALK PHOS 58 U/L Normal 40-129 [facility] Comment on above: Performed By: #### L 100.0100, L503.6005, L500.4050, L300.3900, L300.4310 ####[facility] [address] [place], [address] ALT [Catalytic activity/Vol] 18 U/L Normal <=46 [facility] Comment on above: Performed By: #### L 100.0100, L503.6005, L500.4050, L300.3900, L300.4310 ####[facility] [address] [place], [address] AST [Catalytic activity/Vol] 20 U/L Normal <=37 [facility] Comment on above: Performed By: #### L 100.0100, L503.6005, L500.4050, L300.3900, L300.4310 ####[facility] [address] [place], [address] Bilirubin [Mass/Vol] 0.92 mg/dL Normal 0.00-1.30 [facility] Comment on above: Performed By: #### L 100.0100, L503.6005, L500.4050, L300.3900, L300.4310 ####[facility] [address] [place], [address] BUN/CRE 19.3 RATIO Normal 10-20 [facility] Comment on above: Performed By: #### L 100.0100, L503.6005, L500.4050, L300.3900, L300.4310 ####[facility] [address] [place], [address] Calcium [Mass/Vol] 8.8 mg/dL Normal 7.6-11.0 [facility] Comment on above: Performed By: #### L 100.0100, L503.6005, L500.4050, L300.3900, L300.4310 ####[facility] [address] [place], [address] Chloride [Moles/Vol] 104 mmol/L Normal 98-108 [facility] Comment on above: Performed By: #### L 100.0100, L503.6005, L500.4050, L300.3900, L300.4310 ####[facility] [address] [place], [address] CO2 [Moles/Vol] 22.5 mmol/L Normal 21.0-32.0 [facility] Comment on above: Performed By: #### L 100.0100, L503.6005, L500.4050, L300.3900, L300.4310 ####[facility] [address] [place], [address] Creatinine [Mass/Vol] 1.21 mg/dL High 0.70-1.20 [facility] Comment on above: Performed By: #### L 100.0100, L503.6005, L500.4050, L300.3900, L300.4310 ####[facility] [address] [place], [address] ECRCL 65.62 ml/min Normal 50-250 [facility] Comment on above: Performed By: #### L 100.0100, L503.6005, L500.4050, L300.3900, L300.4310 ####[facility] [address] [place], [address] GAP 11 Normal 5-15 [facility] Comment on above: Performed By: #### L 100.0100, L503.6005, L500.4050, L300.3900, L300.4310 ####[facility] [address] [place], [address] GFR/1.73 sq M.predicted among non-blacks MDRD (S/P/Bld) [Vol rate/Area] 61 mL/min/{1.73_m2} Normal >60 [facility] Comment on above: Result Comment: mL/m in/1.73m2 CKD-EPI Creatinine Equation (2020) Performed By: #### L 100.0100, L503.6005, L500.4050, L300.3900, L300.4310 ####[facility] [address] [place], [address] Globulin (S) [Mass/Vol] 3.1 g/dL Normal 2.2-4.2 [facility] Comment on above: Performed By: #### L 100.0100, L503.6005, L500.4050, L300.3900, L300.4310 ####[facility] [address] [place], [address] Glucose [Mass/Vol] 114 mg/dL High 70-99 [facility] Comment on above: Performed By: #### L 100.0100, L503.6005, L500.4050, L300.3900, L300.4310 ####[facility] [address] [place], [address] Potassium [Moles/Vol] 4.0 mmol/L Normal 3.3-5.1 [facility] Comment on above: Performed By: #### L 100.0100, L503.6005, L500.4050, L300.3900, L300.4310 ####[facility] [address] [place], [address] Sodium [Moles/Vol] 137 mmol/L Normal 133-145 [facility] Comment on above: Performed By: #### L 100.0100, L503.6005, L500.4050, L300.3900, L300.4310 ####[facility] [address] [place], [address] T PROT 7.1 g/dL Normal 5.9-8.4 [facility] Comment on above: Performed By: #### L 100.0100, L503.6005, L500.4050, L300.3900, L300.4310 ####[facility] [address] [place], [address] Urea nitrogen [Mass/Vol] 23 mg/dL High 4-19 [facility] Comment on above: Performed By: #### L 100.0100, L503.6005, L500.4050, L300.3900, L300.4310 ####[facility] [address] [place], [address] H AND P Exam - Hospitaliston 11-13-2024 H&P Exam - Hospitalist Normal [facility] Lactic Acidon 11-13-2024 Lactate [Moles/Vol] 1.7 mmol/L Normal 0.0-2.0 [facility] Comment on above: Order Comment: Y Performed By: #### L 100.0100, L503.6005, L500.4050, L300.3900, L300.4310 ####[facility] [address] [place], [address] Partial Thromboplast Timeon 11-13-2024 aPTT Coag (Bld) [Time] 29.0 s Normal 24.1-36.2 [facility] Comment on above: Performed By: #### L 100.0100, L503.6005, L500.4050, L300.3900, L300.4310 ####[facility] [address] [place], [address] Prothrombin Time w/INRon INR Coag (PPP) [Relative time] 1.4 {INR} Normal [facility] Comment on above: Performed By: #### L 100.0100, L503.6005, L500.4050, L300.3900, L300.4310 ####[facility] [address] [place], [address] PT Coag (PPP) [Time] 17.2 s High 11.7-14.9 [facility] Comment on above: Performed By: #### L 100.0100, L503.6005, L500.4050, L300.3900, L300.4310 ####[facility] [address] [place], [address] Urinalysis, Completeon 11-13 EPI,SQUAMOUS 0-5 SEEN Normal 0-5 [facility] Comment on above: Order Comment: CLEAN CATCH Performed By: #### L 400.0001 ####[facility] [address] [place], [address] RBC 10-25 SEEN Normal 0-5 [facility] Comment on above: Order Comment: CLEAN CATCH Performed By: #### L 400.0001 ####[facility] [address] [place], [address] BACTERIA 1+ /hpf Normal None Seen [facility] Comment on above: Order Comment: CLEAN CATCH Performed By: #### L 400.0001 ####[facility] [address] [place], [address] WBC >100 SEEN Normal 0-5 [facility] Comment on above: Order Comment: CLEAN CATCH Performed By: #### L 400.0001 ####[facility] [address] [place], [address] Mucus Ql (Urine sed) 0 SEEN Normal [facility] Comment on above: Order Comment: CLEAN CATCH Performed By: #### L 400.0001 ####[facility] [address] [place], [address] Anion gap in Serum or Plasma Ordered By: Miguel Carrillo on 10-17-2024 Anion gap [Moles/Vol] 11 mmol/L 5-15 [facility] BUN/creatinine ratioOrdered By: Miguel Carrillo on 10-17-2024 Urea nitrogen/Creatinine [Mass ratio] 20.1 mg/mg High 10-20 [facility] Basic Metabolic Profile (BMP )on 10-17-2024 BUN/CRE 20.1 RATIO High 10-20 [facility] Comment on above: Performed By: #### L 500.2500, L501.5200 ####[facility] [address] [place], [address] Calcium [Mass/Vol] 9.5 mg/dL Normal 7.6-11.0 [facility] Comment on above: Performed By: #### L 500.2500, L501.5200 ####[facility] [address] [place], [address] Chloride [Moles/Vol] 103 mmol/L Normal 98-108 [facility] Comment on above: Performed By: #### L 500.2500, L501.5200 ####[facility] [address] [place], [address] CO2 [Moles/Vol] 23.9 mmol/L Normal 21.0-32.0 [facility] Comment on above: Performed By: #### L 500.2500, L501.5200 ####[facility] [address] [place], [address] Creatinine [Mass/Vol] 1.35 mg/dL High 0.70-1.20 [facility] Comment on above: Performed By: #### L 500.2500, L501.5200 ####[facility] [address] [place], [address] GAP 11 Normal 5-15 [facility] Comment on above: Performed By: #### L 500.2500, L501.5200 ####[facility] [address] [place], [address] GFR/1.73 sq M.predicted among non-blacks MDRD (S/P/Bld) [Vol rate/Area] 54 mL/min/{1.73_m2} Low >60 [facility] Comment on above: Result Comment: mL/m in/1.73m2 CKD-EPI Creatinine Equation (2020) Performed By: #### L 500.2500, L501.5200 ####[facility] [address] [place], [address] Glucose [Mass/Vol] 98 mg/dL Normal 70-99 [facility] Comment on above: Performed By: #### L 500.2500, L501.5200 ####[facility] [address] [place], [address] Potassium [Moles/Vol] 3.9 mmol/L Normal 3.3-5.1 [facility] Comment on above: Performed By: #### L 500.2500, L501.5200 ####[facility] [address] [place], [address] Sodium [Moles/Vol] 138 mmol/L Normal 133-145 [facility] Comment on above: Performed By: #### L 500.2500, L501.5200 ####[facility] [address] [place], [address] Urea nitrogen [Mass/Vol] 27 mg/dL High 4-19 [facility] Comment on above: Performed By: #### L 500.2500, L501.5200 ####[facility] [address] [place], [address] Carbon dioxide, total [Moles /volume] in Central venous bloodOrdered By: Miguel Carrillo on 10-17-2024 CO2 [Moles/Vol] 23.9 mmol/L 21.0-32.0 [facility] Chloride assayOrdered By: Cherri Carrillo on 10-17-2024 Chloride [Moles/Vol] 103 mmol/L 98-108 [facility] Glomerular filtration rate ( GFR) estimation/1.73 sq m using serum, plasma, or whole bOrdered By: Miguel Carrillo on 10-17-2024 GFR/1.73 sq M.predicted among non-blacks MDRD (S/P/Bld) [Vol rate/Area] 54 mL/min/{1.73_m2} Low >60 [facility] Comment on above: mL/min/1.73m2 CKD-EP I Creatinine Equation (2020) Magnesiumon 10-17-2024 Magnesium [Mass/Vol] 2.5 mg/dL High 1.5-2.2 [facility] Comment on above: Performed By: #### L 500.2500, L501.5200 ####[facility] [address] [place], [address] Magnesium measurement (mass/ volume)Ordered By: Miguel Carrillo on 10-17-2024 Magnesium (Unsp spec) [Mass/Vol] 2.5 mg/dL High 1.5-2.2 [facility] Potassium measurement (mass/ volume)Ordered By: Miguel Carrillo on 10-17-2024 Potassium (Unsp spec) [Mass/Vol] 3.9 mmol/L 3.3-5.1 [facility] Serum creatinine measurement (mass/volume)Ordered By: Miguel Carrillo on 10-17-2024 Creatinine [Mass/Vol] 1.35 mg/dL High 0.70-1.20 [facility] Serum glucose measurement (m ass/volume)Ordered By: Miguel Carrillo on 10-17-2024 Glucose [Mass/Vol] 98 mg/dL 70-99 [facility] Serum or plasma calcium nicole urement (mass/volume)Ordered By: Miguel Carrillo on 10-17-2024 Calcium [Mass/Vol] 9.5 mg/dL 7.6-11.0 [facility] Serum or plasma urea nitroge n measurement (mass/volume)Ordered By: Miguel Carrillo on 10-17-2024 Urea nitrogen [Mass/Vol] 27 mg/dL High 4-19 [facility] Sodium levelOrdered By: Dario Carrillo on 10-17-2024 Sodium [Moles/Vol] 138 mmol/L 133-145 [facility] Re-Evalution OTon 10-03-2024 Re-Evalution OT Normal [facility] SP/HP.SPREEVon 09-13-2024 SP/HP.SPREEV Normal [facility] Re-Evaluation - PT (1)on Re-Evaluation - PT (1) Normal [facility] Pacemaker Checkon 08-16-2024 Pacemaker Check Normal [facility] Cardiology Visit Reporton Cardiology Visit Report Normal [facility] Re-Evaluation - PT (1)on Re-Evaluation - PT (1) Normal [facility] Re-Evalution OTon 07-10-2024 Re-Evalution OT Normal [facility] SP/HP.SP.Josh 06-15-2024 SP/HP.SP.EV Normal [facility] Inital Evaluation (1) - PTon 05-25-2024 Inital Evaluation (1) - PT Normal [facility] OT General Evaluationon OT General Evaluation Normal [facility] Basic Metabolic Profile (BMP )on 05-02-2024 BUN Normal -18 [facility] Comment on above: Result Comment: Canc elled via OM: Order cancelled - Patient discharged Performed By: #### L 500.2500, L100.0100 ####[facility] [address] [place], [address] BUN/CRE Normal 10-20 [facility] Comment on above: Result Comment: Canc elled via OM: Order cancelled - Patient discharged Performed By: #### L 500.2500, L100.0100 ####[facility] [address] [place], [address] CA,Total Normal 8.5-10.1 [facility] Comment on above: Result Comment: Canc elled via OM: Order cancelled - Patient discharged Performed By: #### L 500.2500, L100.0100 ####[facility] [address] [place], [address] CL Normal 98-107 [facility] Comment on above: Result Comment: Canc elled via OM: Order cancelled - Patient discharged Performed By: #### L 500.2500, L100.0100 ####[facility] [address] [place], [address] CO2 Normal 21.0-32.0 [facility] Comment on above: Result Comment: Canc elled via OM: Order cancelled - Patient discharged Performed By: #### L 500.2500, L100.0100 ####[facility] [address] [place], [address] CREAT,SERUM Normal 0.70-1.30 [facility] Comment on above: Result Comment: Canc elled via OM: Order cancelled - Patient discharged Performed By: #### L 500.2500, L100.0100 ####[facility] [address] [place], [address] EST GFR Normal >60 [facility] Comment on above: Result Comment: Canc elled via OM: Order cancelled - Patient discharged Performed By: #### L 500.2500, L100.0100 ####[facility] [address] [place], [address] EST GFR - AA Normal >60 [facility] Comment on above: Result Comment: Canc elled via OM: Order cancelled - Patient discharged Performed By: #### L 500.2500, L100.0100 ####[facility] [address] [place], [address] GAP Normal 5-15 [facility] Comment on above: Result Comment: Canc elled via OM: Order cancelled - Patient discharged Performed By: #### L 500.2500, L100.0100 ####[facility] [address] [place], [address] GLU Normal 74-106 [facility] Comment on above: Result Comment: Canc elled via OM: Order cancelled - Patient discharged Performed By: #### L 500.2500, L100.0100 ####[facility] [address] [place], [address] Potassium Normal 3.5-5.1 [facility] Comment on above: Result Comment: Canc elled via OM: Order cancelled - Patient discharged Performed By: #### L 500.2500, L100.0100 ####[facility] [address] [place], [address] Basic Metabolic Profile (BMP) Normal 136-145 [facility] Comment on above: Result Comment: Canc elled via OM: Order cancelled - Patient discharged Performed By: #### L 500.2500, L100.0100 ####[facility] [address] [place], [address] CBC W/Diff, Automatedon 04-15 Absolute Neut Normal 2.0-7.7 [facility] Comment on above: Result Comment: Canc elled via OM: Order cancelled - Patient discharged Performed By: #### L 500.2500, L100.0100 ####[facility] [address] [place], [address] HCT Normal 40-54 [facility] Comment on above: Result Comment: Canc elled via OM: Order cancelled - Patient discharged Performed By: #### L 500.2500, L100.0100 ####[facility] [address] [place], [address] HGB Normal 13.0-16.5 [facility] Comment on above: Result Comment: Canc elled via OM: Order cancelled - Patient discharged Performed By: #### L 500.2500, L100.0100 ####[facility] [address] [place], [address] MCH Normal 27.0-32.0 [facility] Comment on above: Result Comment: Canc elled via OM: Order cancelled - Patient discharged Performed By: #### L 500.2500, L100.0100 ####[facility] [address] [place], [address] MCHC Normal 32-36 [facility] Comment on above: Result Comment: Canc elled via OM: Order cancelled - Patient discharged Performed By: #### L 500.2500, L100.0100 ####[facility] [address] [place], [address] MCV Normal 80-94 [facility] Comment on above: Result Comment: Canc elled via OM: Order cancelled - Patient discharged Performed By: #### L 500.2500, L100.0100 ####[facility] [address] [place], [address] NEUT% Normal 47-70 [facility] Comment on above: Result Comment: Canc elled via OM: Order cancelled - Patient discharged Performed By: #### L 500.2500, L100.0100 ####[facility] [address] [place], [address] PLT Normal 150-450 [facility] Comment on above: Result Comment: Canc elled via OM: Order cancelled - Patient discharged Performed By: #### L 500.2500, L100.0100 ####[facility] [address] [place], [address] RBC Normal 4.6-6.2 [facility] Comment on above: Result Comment: Canc elled via OM: Order cancelled - Patient discharged Performed By: #### L 500.2500, L100.0100 ####[facility] [address] [place], [address] RDW CV Normal 11.6-14.6 [facility] Comment on above: Result Comment: Canc elled via OM: Order cancelled - Patient discharged Performed By: #### L 500.2500, L100.0100 ####[facility] [address] [place], [address] RDW SD Normal 35.1-43.9 [facility] Comment on above: Result Comment: Canc elled via OM: Order cancelled - Patient discharged Performed By: #### L 500.2500, L100.0100 ####[facility] [address] [place], [address] WBC Normal 4.4-11.0 [facility] Comment on above: Result Comment: Canc elled via OM: Order cancelled - Patient discharged Performed By: #### L 500.2500, L100.0100 ####[facility] [address] [place], [address] COVID 19 AG RAPID (RN COLLEC T)on 04-26-2024 SARS-CoV-2 (COVID-19) RNA ALEXYS+probe Ql (Unsp spec) Normal [facility] Comment on above: Performed By: #### M 100.505 ####[facility] [address] [place], [address] COVID-19 virus antigen assay Ordered By: Luis Carlos Gallardo on 04-26-2024 SARS-CoV-2 (COVID-19) Ag IA.rapid Ql (Resp) [facility] Absolute lymphocyte countOrd ered By: Luis Carlos Gallardo on 04-25-2024 Lymphocytes Auto (Unsp spec) [#/Vol] 0.89 10*3/uL 0.83-4.51 [facility] Absolute neutrophil countOrd ered [facility]: [facility]24 Neutrophils (Bld) [#/Vol] 4.4 10*3/uL 2.0-7.7 [facility] Automated lymphocyte count a s percentage of total leukocytesOrdered By: Luis Carlos Gallardo on 04-25-2024 Lymphocytes/100 WBC Auto (Unsp spec) 14.5 % Low 19-41 [facility] Basic Metabolic Profile (BMP )on 04-25-2024 BUN/CRE 29.8 RATIO High 10-20 [facility] Comment on above: Performed By: #### L 100.0100, L500.2500 ####[facility] [address] [place], [address] CA,Total 8.7 mg/dL Normal 8.5-10.1 [facility] Comment on above: Performed By: #### L 100.0100, L500.2500 ####[facility] [address] [place], [address] Chloride [Moles/Vol] 110 mmol/L High 98-107 [facility] Comment on above: Performed By: #### L 100.0100, L500.2500 ####[facility] [address] [place], [address] CO2 [Moles/Vol] 25.0 mmol/L Normal 21.0-32.0 [facility] Comment on above: Performed By: #### L 100.0100, L500.2500 ####[facility] [address] [place], [address] Creatinine [Mass/Vol] 0.80 mg/dL Normal 0.70-1.30 [facility] Comment on above: Result Comment: The validity of the calculated GFR GFRAA in patients over70 years has not been determined. Clinical correlation isessential. Performed By: #### L 100.0100, L500.2500 ####[facility] [address] [place], [address] ECRCL 95.04 ml/min Normal [facility] Comment on above: Performed By: #### L 100.0100, L500.2500 ####[facility] [address] [place], [address] EST GFR - AA 119 mL/min Normal >60 [facility] Comment on above: Result Comment: Afri can [place] Citizen GFR Calc Performed By: #### L 100.0100, L500.2500 ####[facility] [address] [place], [address] GAP 4 Low 5-15 [facility] Comment on above: Performed By: #### L 100.0100, L500.2500 ####[facility] [address] [place], [address] GFR/1.73 sq M.predicted among non-blacks MDRD (S/P/Bld) [Vol rate/Area] 99 mL/min/{1.73_m2} Normal >60 [facility] Comment on above: Result Comment: Non- GFR Calc Performed By: #### L 100.0100, L500.2500 ####[facility] [address] [place], [address] Glucose [Mass/Vol] 80 mg/dL Normal 74-106 [facility] Comment on above: Performed By: #### L 100.0100, L500.2500 ####[facility] [address] [place], [address] Potassium [Moles/Vol] 4.0 mmol/L Normal 3.5-5.1 [facility] Comment on above: Performed By: #### L 100.0100, L500.2500 ####[facility] [address] [place], [address] Sodium [Moles/Vol] 139 mmol/L Normal 136-145 [facility] Comment on above: Performed By: #### L 100.0100, L500.2500 ####[facility] [address] [place], [address] Urea nitrogen [Mass/Vol] 24 mg/dL High 7-18 [facility] Comment on above: Performed By: #### L 100.0100, L500.2500 ####[facility] [address] [place], [address] Basophil percentageOrdered B y: Luis Carlos Gallardo on 04-25-2024 Basophils/100 WBC (Bld) 0.7 % 0-1 [facility] Blood urea nitrogen (BUN)/cr eatinine ratioOrdered By: Luis Carlos Gallardo on 04-25-2024 Urea nitrogen/Creatinine [Mass ratio] 29.8 mg/mg High 10-20 [facility] CBC W/Diff, Automatedon 04-15 Absolute Lymph 0.89 X10 3/uL Normal 0.83-4.51 [facility] Comment on above: Performed By: #### L 100.0100, L500.2500 ####[facility] [address] [place], [address] Absolute Neut 4.4 X10 3/uL Normal 2.0-7.7 [facility] Comment on above: Performed By: #### L 100.0100, L500.2500 ####[facility] [address] [place], [address] Basophils/100 WBC (Bld) 0.7 % Normal 0-1 [facility] Comment on above: Performed By: #### L 100.0100, L500.2500 ####[facility] [address] [place], [address] Eosinophils/100 WBC (Bld) 3.8 % Normal 0-5 [facility] Comment on above: Performed By: #### L 100.0100, L500.2500 ####[facility] [address] [place], [address] Erythrocyte distribution width (RBC) [Ratio] 15.9 % High 11.6-14.6 [facility] Comment on above: Performed By: #### L 100.0100, L500.2500 ####[facility] [address] [place], [address] Hematocrit (Bld) [Volume fraction] 29.8 % Low 40-54 [facility] Comment on above: Performed By: #### L 100.0100, L500.2500 ####[facility] [address] [place], [address] Hemoglobin (Bld) [Mass/Vol] 9.9 g/dL Low 13.0-16.5 [facility] Comment on above: Performed By: #### L 100.0100, L500.2500 ####[facility] [address] [place], [address] IG% 0.500 Normal 0.0-0.9 [facility] Comment on above: Result Comment: IG% - Immature Granulocytes (promyelocytes, myelocytes andmetamyelocytes) > 1% indicates that a LEFT SHIFT is Present. Performed By: #### L 100.0100, L500.2500 ####[facility] [address] [place], [address] Lymphocytes/100 WBC (Bld) 14.5 % Low 19-41 [facility] Comment on above: Performed By: #### L 100.0100, L500.2500 ####[facility] [address] [place], [address] MCH (RBC) [Entitic mass] 29.0 pg Normal 27.0-32.0 [facility] Comment on above: Performed By: #### L 100.0100, L500.2500 ####[facility] [address] [place], [address] MCHC (RBC) [Mass/Vol] 33.2 g/dL Normal 32-36 [facility] Comment on above: Performed By: #### L 100.0100, L500.2500 ####[facility] [address] [place], [address] MCV (RBC) [Entitic vol] 87.4 fL Normal 80-94 [facility] Comment on above: Performed By: #### L 100.0100, L500.2500 ####[facility] [address] [place], [address] Monocytes/100 WBC (Bld) 8.2 % Normal 0-10 [facility] Comment on above: Performed By: #### L 100.0100, L500.2500 ####[facility] [address] [place], [address] Neutrophils/100 WBC (Bld) 72.3 % High 47-70 [facility] Comment on above: Performed By: #### L 100.0100, L500.2500 ####[facility] [address] [place], [address] Nucleated RBC (Bld) [#/Vol] 0 10*3/uL Normal 0-5 [facility] Comment on above: Performed By: #### L 100.0100, L500.2500 ####[facility] [address] [place], [address] Platelet mean volume (Bld) [Entitic vol] 9.8 fL Normal 6.2-12.0 [facility] Comment on above: Performed By: #### L 100.0100, L500.2500 ####[facility] [address] [place], [address] Platelets (Bld) [#/Vol] 178 10*3/uL Normal 150-450 [facility] Comment on above: Performed By: #### L 100.0100, L500.2500 ####[facility] [address] [place], [address] RBC (Bld) [#/Vol] 3.41 10*6/uL Low 4.6-6.2 [facility] Comment on above: Performed By: #### L 100.0100, L500.2500 ####[facility] [address] [place], [address] RDW SD 50.5 fl High 35.1-43.9 [facility] Comment on above: Performed By: #### L 100.0100, L500.2500 ####[facility] [address] [place], [address] WBC (Bld) [#/Vol] 6.1 10*3/uL Normal 4.4-11.0 [facility] [facility] Comment on above: Performed By: #### L 100.0100, L500.2500 ####[facility] [address] [place], [address] Carbon dioxide measurementOr dered By: Luis Carlos Gallardo on 04-25-2024 CO2 [Moles/Vol] 25.0 mmol/L 21.0-32.0 [facility] Chloride measurementOrdered By: Luis Carlos Gallardo on 04-25-2024 Chloride [Moles/Vol] 110 mmol/L High 98-107 [facility] Eosinophil percentageOrdered By: [facility] 04-25-2024 Eosinophils/100 WBC (Bld) 3.8 % 0-5 [facility] Erythrocyte distribution wid th ratioOrdered By: Luis Carlos Sami 04-25-2024 Erythrocyte distribution width (RBC) [Ratio] 15.9 % High 11.6-14.6 [facility] Erythrocyte distribution wid th standard deviationOrdered By: [facility] 04-[facility] Erythrocyte distribution width (RBC) [Ratio] 50.5 fl High 35.1-43.9 [facility] Glomerular filtration rate ( GFR) estimationOrdered By: [facility] 04-[facility]-20[facility] GFR/1.73 sq M.predicted among non-blacks MDRD (S/P/Bld) [Vol rate/Area] 99 mL/min/{1.73_m2} >60 [facility] Comment on above: Non- GFR Calc Glucose measurementOrdered B y: Luis Carlos Gallardo 04-25-2024 Glucose [Mass/Vol] 80 mg/dL 74-106 [facility] Hematocrit Auto (Bld) [Volum e fraction]Ordered By: [facility] 04-25-2024 Hematocrit (Bld) [Volume fraction] 29.8 % Low 40-54 [facility] Hemoglobin measurementOrdere d By: Luis Carlos Gallardo 04-25-2024 Hemoglobin (Bld) [Mass/Vol] 9.9 g/dL Low 13.0-16.5 [facility] Immature granulocytes/100 WB C Auto (Bld)Ordered By: Luis Carlos Sami 04-25-2024 Immature granulocytes/100 WBC (Bld) 0.500 % 0.0-0.9 [facility] Comment on above: IG% - Immature Granu locytes (promyelocytes, myelocytes and metamyelocytes) > 1% indicates that a LEFT SHIFT is Present. MCV (mean corpuscular volume ) determinationOrdered By: Luis Carlos Gallardo 04-25-2024 MCV (RBC) [Entitic vol] 87.4 fL 80-94 [facility] Mean corpuscular hemoglobin (MCH) determinationOrdered By: Luis Carlos Gallardo 04-25-2024 MCH (RBC) [Entitic mass] 29.0 pg 27.0-32.0 [facility] Mean corpuscular hemoglobin concentration (MCHC) determinationOrdered By: Luis Carlos Gallardo on 04-25-2024 MCHC (RBC) [Mass/Vol] 33.2 g/dL 32-36 [facility] Mean platelet volume determi nationOrdered By: Luis Carlos Gallardo on 04-25-2024 Platelet mean volume (Bld) [Entitic vol] 9.8 fL 6.2-12.0 [facility] Monocyte percentageOrdered B y: Luis Carlos Gallardo on 04-25-2024 Monocytes/100 WBC (Bld) 8.2 % 0-10 [facility] Neutrophil percentageOrdered By: Luis Carlos Gallardo on 04-25-2024 Neutrophils/100 WBC (Bld) 72.3 % High 47-70 [facility] Nucleated red blood cell per centageOrdered By: Luis Carlos Gallardo on 04-25-2024 Nucleated RBC/100 WBC (Bld) [Ratio] 0 % 0-5 [facility] Platelet countOrdered By: Nuno Gallardo on 04-25-2024 Platelets (Bld) [#/Vol] 178 10*3/uL 150-450 [facility] Potassium measurementOrdered By: Luis Carlos Gallardo on 04-25-2024 Potassium [Moles/Vol] 4.0 mmol/L 3.5-5.1 [facility] RBC Auto (Bld) [#/Vol]Ordere d By: Luis Carlos Gallardo on 04-25-2024 RBC (Bld) [#/Vol] 3.41 10*6/uL Low 4.6-6.2 [facility] Serum anion gap measurementO rdered By: Luis Carlos Gallardo on 04-25-2024 Anion gap [Moles/Vol] 4 mmol/L Low 5-15 [facility] Serum or plasma calcium nicole urement (mass/volume)Ordered By: Luis Carlos Gallardo on 04-25-2024 Calcium [Mass/Vol] 8.7 mg/dL 8.5-10.1 [facility] Serum or plasma creatinine m easurement (mass/volume)Ordered By: Luis Carlos Gallardo on 04-25-2024 Creatinine [Mass/Vol] 0.80 mg/dL 0.70-1.30 [facility] Comment on above: The validity of the calculated GFR & GFRAA in patients over 70 years has not been determined. Clinical correlation is essential. Serum or plasma urea nitroge n measurement (mass/volume)Ordered By: Luis Carlos Gallardo on 04-25-2024 Urea nitrogen [Mass/Vol] 24 mg/dL High 7-18 [facility] Sodium levelOrdered By: Luis Carlos Gallardo on 04-25-2024 Sodium [Moles/Vol] 139 mmol/L 136-145 [facility] White blood cell (WBC) count Ordered By: Luis Carlos Gallardo on 04-25-2024 WBC (Bld) [#/Vol] 6.1 10*3/uL 4.4-11.0 [facility] HH, Hemoglobin AND Hematocri ton 04-21-2024 Hematocrit (Bld) [Volume fraction] 32.3 % Low 40-54 [facility] Comment on above: Performed By: #### L 100.0600 ####[facility] [address] [place], [address] Hemoglobin (Bld) [Mass/Vol] 10.5 g/dL Low 13.0-16.5 [facility] Comment on above: Performed By: #### L 100.0600 ####[facility] [address] [place], [address] Basic Metabolic Profile (BMP )on 04-20-2024 BUN/CRE 18.0 RATIO Normal 10-20 [facility] Comment on above: Performed By: #### L 500.2500 ####[facility] [address] [place], [address] CA,Total 9.2 mg/dL Normal 8.5-10.1 [facility] Comment on above: Performed By: #### L 500.2500 ####[facility] [address] [place], [address] Chloride [Moles/Vol] 112 mmol/L High 98-107 [facility] Comment on above: Performed By: #### L 500.2500 ####[facility] [address] [place], [address] CO2 [Moles/Vol] 24.0 mmol/L Normal 21.0-32.0 [facility] Comment on above: Performed By: #### L 500.2500 ####[facility] [address] [place], [address] Creatinine [Mass/Vol] 1.00 mg/dL Normal 0.70-1.30 [facility] Comment on above: Result Comment: The validity of the calculated GFR GFRAA in patients over70 years has not been determined. Clinical correlation isessential. Performed By: #### L 500.2500 ####[facility] [address] [place], [address] ECRCL 76.03 ml/min Normal [facility] Comment on above: Performed By: #### L 500.2500 ####[facility] [address] [place], [address] EST GFR - AA 93 mL/min Normal >60 [facility] Comment on above: Result Comment: Afri can [place] Citizen GFR Calc Performed By: #### L 500.2500 ####[facility] [address] [place], [address] GAP 6 Normal 5-15 [facility] Comment on above: Performed By: #### L 500.2500 ####[facility] [address] [place], [address] GFR/1.73 sq M.predicted among non-blacks MDRD (S/P/Bld) [Vol rate/Area] 77 mL/min/{1.73_m2} Normal >60 [facility] Comment on above: Result Comment: Non- GFR Calc Performed By: #### L 500.2500 ####[facility] [address] [place], [address] Glucose [Mass/Vol] 80 mg/dL Normal 74-106 [facility] Comment on above: Performed By: #### L 500.2500 ####[facility] [address] [place], [address] Potassium [Moles/Vol] 3.7 mmol/L Normal 3.5-5.1 [facility] Comment on above: Performed By: #### L 500.2500 ####[facility] [address] [place], [address] Sodium [Moles/Vol] 142 mmol/L Normal 136-145 [facility] Comment on above: Performed By: #### L 500.2500 ####[facility] [address] [place], [address] Urea nitrogen [Mass/Vol] 18 mg/dL Normal 7-18 [facility] Comment on above: Performed By: #### L 500.2500 ####[facility] [address] [place], [address] Basic Metabolic Profile (BMP )on 04-18-2024 BUN/CRE 16.7 RATIO Normal 10-20 [facility] Comment on above: Performed By: #### L 100.0100, L500.2500 ####[facility] [address] [place], [address] CA,Total 8.7 mg/dL Normal 8.5-10.1 [facility] Comment on above: Performed By: #### L 100.0100, L500.2500 ####[facility] [address] [place], [address] Chloride [Moles/Vol] 110 mmol/L High 98-107 [facility] Comment on above: Performed By: #### L 100.0100, L500.2500 ####[facility] [address] [place], [address] CO2 [Moles/Vol] 24.0 mmol/L Normal 21.0-32.0 [facility] Comment on above: Performed By: #### L 100.0100, L500.2500 ####[facility] [address] [place], [address] Creatinine [Mass/Vol] 1.02 mg/dL Normal 0.70-1.30 [facility] Comment on above: Result Comment: The validity of the calculated GFR GFRAA in patients over70 years has not been determined. Clinical correlation isessential. Performed By: #### L 100.0100, L500.2500 ####[facility] [address] [place], [address] ECRCL 74.54 ml/min Normal [facility] Comment on above: Performed By: #### L 100.0100, L500.2500 ####[facility] [address] [place], [address] EST GFR - AA 91 mL/min Normal >60 [facility] Comment on above: Result Comment: Afri can [place] GFR Calc Performed By: #### L 100.0100, L500.2500 ####[facility] [address] [place], [address] GAP 7 Normal 5-15 [facility] Comment on above: Performed By: #### L 100.0100, L500.2500 ####[facility] [address] [place], [address] GFR/1.73 sq M.predicted among non-blacks MDRD (S/P/Bld) [Vol rate/Area] 75 mL/min/{1.73_m2} Normal >60 [facility] Comment on above: Result Comment: Non- GFR Calc Performed By: #### L 100.0100, L500.2500 ####[facility] [address] [place], [address] Glucose [Mass/Vol] 85 mg/dL Normal 74-106 [facility] Comment on above: Performed By: #### L 100.0100, L500.2500 ####[facility] [address] [place], [address] Potassium [Moles/Vol] 3.4 mmol/L Low 3.5-5.1 [facility] Comment on above: Performed By: #### L 100.0100, L500.2500 ####[facility] [address] [place], [address] Sodium [Moles/Vol] 142 mmol/L Normal 136-145 [facility] Comment on above: Performed By: #### L 100.0100, L500.2500 ####[facility] [address] [place], [address] Urea nitrogen [Mass/Vol] 17 mg/dL Normal 7-18 [facility] Comment on above: Performed By: #### L 100.0100, L500.2500 ####[facility] [address] [place], [address] CBC W/Diff, Automatedon 02-0 4-2025 Absolute Lymph 0.87 X10 3/uL Normal 0.83-4.51 [facility] Comment on above: Performed By: #### L 100.0100, L500.2500 ####[facility] [address] [place], [address] Absolute Neut 3.4 X10 3/uL Normal 2.0-7.7 [facility] Comment on above: Performed By: #### L 100.0100, L500.2500 ####[facility] [address] [place], [address] Basophils/100 WBC (Bld) 0.2 % Normal 0-1 [facility] Comment on above: Performed By: #### L 100.0100, L500.2500 ####[facility] [address] [place], [address] Eosinophils/100 WBC (Bld) 3.7 % Normal 0-5 [facility] Comment on above: Performed By: #### L 100.0100, L500.2500 ####[facility] [address] [place], [address] Erythrocyte distribution width (RBC) [Ratio] 15.0 % High 11.6-14.6 [facility] Comment on above: Performed By: #### L 100.0100, L500.2500 ####[facility] [address] [place], [address] Hematocrit (Bld) [Volume fraction] 32.1 % Low 40-54 [facility] Comment on above: Performed By: #### L 100.0100, L500.2500 ####[facility] [address] [place], [address] Hemoglobin (Bld) [Mass/Vol] 10.4 g/dL Low 13.0-16.5 [facility] Comment on above: Performed By: #### L 100.0100, L500.2500 ####[facility] [address] [place], [address] IG% 0.400 Normal 0.0-0.9 [facility] Comment on above: Result Comment: IG% - Immature Granulocytes (promyelocytes, myelocytes andmetamyelocytes) > 1% indicates that a LEFT SHIFT is Present. Performed By: #### L 100.0100, L500.2500 ####[facility] [address] [place], [address] Lymphocytes/100 WBC (Bld) 17.9 % Low 19-41 [facility] Comment on above: Performed By: #### L 100.0100, L500.2500 ####[facility] [address] [place], [address] MCH (RBC) [Entitic mass] 28.0 pg Normal 27.0-32.0 [facility] Comment on above: Performed By: #### L 100.0100, L500.2500 ####[facility] [address] [place], [address] MCHC (RBC) [Mass/Vol] 32.4 g/dL Normal 32-36 [facility] Comment on above: Performed By: #### L 100.0100, L500.2500 ####[facility] [address] [place], [address] MCV (RBC) [Entitic vol] 86.5 fL Normal 80-94 [facility] Comment on above: Performed By: #### L 100.0100, L500.2500 ####[facility] [address] [place], [address] Monocytes/100 WBC (Bld) 8.2 % Normal 0-10 [facility] Comment on above: Performed By: #### L 100.0100, L500.2500 ####[facility] [address] [place], [address] Neutrophils/100 WBC (Bld) 69.6 % Normal 47-70 [facility] Comment on above: Performed By: #### L 100.0100, L500.2500 ####[facility] [address] [place], [address] Nucleated RBC (Bld) [#/Vol] 0 10*3/uL Normal 0-5 [facility] Comment on above: Performed By: #### L 100.0100, L500.2500 ####[facility] [address] [place], [address] Platelet mean volume (Bld) [Entitic vol] 10.3 fL Normal 6.2-12.0 [facility] Comment on above: Performed By: #### L 100.0100, L500.2500 ####[facility] [address] [place], [address] Platelets (Bld) [#/Vol] 192 10*3/uL Normal 150-450 [facility] Comment on above: Performed By: #### L 100.0100, L500.2500 ####[facility] [address] [place], [address] RBC (Bld) [#/Vol] 3.71 10*6/uL Low 4.6-6.2 [facility] Comment on above: Performed By: #### L 100.0100, L500.2500 ####[facility] [address] [place], [address] RDW SD 47.0 fl High 35.1-43.9 [facility] Comment on above: Performed By: #### L 100.0100, L500.2500 ####[facility] [address] [place], [address] WBC (Bld) [#/Vol] 4.9 10*3/uL Normal 4.4-11.0 [facility] Comment on above: Performed By: #### L 100.0100, L500.2500 ####[facility] [address] [place], [address] Bedside Glucoseon 04-14-2024 FINGERSTICK GLU 91 mg/dL Normal 74-106 [facility] Comment on above: Result Comment: NETO XIE OF PATIENT CARE PER NURSING PROTOCOL Performed By: #### L 501.080 ####[facility] [address] [place], [address] [facility] de[facility] By: Luis Carlos Gallardo on 04-14-2024 Glucose [Mass/Vol] 91 mg/dL 74-106 [facility] Comment on above: MANAGEMENT OF PATIEN T CARE PER NURSING PROTOCOL Basic Metabolic Profile (BMP )on 04-12-2024 BUN/CRE 15.7 RATIO Normal 10-20 [facility] Comment on above: Performed By: #### L 100.0100, L500.2500 ####[facility] [address] [place], [address] CA,Total 8.5 mg/dL Normal 8.5-10.1 [facility] Comment on above: Performed By: #### L 100.0100, L500.2500 ####[facility] [address] [place], [address] Chloride [Moles/Vol] 110 mmol/L High 98-107 [facility] Comment on above: Performed By: #### L 100.0100, L500.2500 ####[facility] [address] [place], [address] CO2 [Moles/Vol] 21.0 mmol/L Normal 21.0-32.0 [facility] Comment on above: Performed By: #### L 100.0100, L500.2500 ####[facility] [address] [place], [address] Creatinine [Mass/Vol] 0.96 mg/dL Normal 0.70-1.30 [facility] Comment on above: Result Comment: The validity of the calculated GFR GFRAA in patients over70 years has not been determined. Clinical correlation isessential. Performed By: #### L 100.0100, L500.2500 ####[facility] [address] [place], [address] ECRCL 78.95 ml/min Normal [facility] Comment on above: Performed By: #### L 100.0100, L500.2500 ####[facility] [address] [place], [address] EST GFR - AA 98 mL/min Normal >60 [facility] Comment on above: Result Comment: Afri can [place] Citizen GFR Calc Performed By: #### L 100.0100, L500.2500 ####[facility] [address] [place], [address] GAP 9 Normal 5-15 [facility] Comment on above: Performed By: #### L 100.0100, L500.2500 ####[facility] [address] [place], [address] GFR/1.73 sq M.predicted among non-blacks MDRD (S/P/Bld) [Vol rate/Area] 81 mL/min/{1.73_m2} Normal >60 [facility] Comment on above: Result Comment: Non- GFR Calc Performed By: #### L 100.0100, L500.2500 ####[facility] [address] [place], [address] Glucose [Mass/Vol] 90 mg/dL Normal 74-106 [facility] Comment on above: Performed By: #### L 100.0100, L500.2500 ####[facility] [address] [place], [address] Potassium [Moles/Vol] 3.6 mmol/L Normal 3.5-5.1 [facility] Comment on above: Performed By: #### L 100.0100, L500.2500 ####[facility] [address] [place], [address] Sodium [Moles/Vol] 139 mmol/L Normal 136-145 [facility] Comment on above: Performed By: #### L 100.0100, L500.2500 ####[facility] [address] [place], [address] Urea nitrogen [Mass/Vol] 15 mg/dL Normal 7-18 [facility] Comment on above: Performed By: #### L 100.0100, L500.2500 ####[facility] [address] [place], [address] CBC W/Diff, Automatedon -2 Absolute Lymph 0.67 X10 3/uL Low 0.83-4.51 [facility] Comment on above: Performed By: #### L 100.0100, L500.2500 ####[facility] [address] [place], [address] Absolute Neut 2.0 X10 3/uL Normal 2.0-7.7 [facility] Comment on above: Performed By: #### L 100.0100, L500.2500 ####[facility] [address] [place], [address] Basophils/100 WBC (Bld) 0.3 % Normal 0-1 [facility] Comment on above: Performed By: #### L 100.0100, L500.2500 ####[facility] [address] [place], [address] Eosinophils/100 WBC (Bld) 4.5 % Normal 0-5 [facility] Comment on above: Performed By: #### L 100.0100, L500.2500 ####[facility] [address] [place], [address] Erythrocyte distribution width (RBC) [Ratio] 15.5 % High 11.6-14.6 [facility] Comment on above: Performed By: #### L 100.0100, L500.2500 ####[facility] [address] [place], [address] Hematocrit (Bld) [Volume fraction] 29.8 % Low 40-54 [facility] Comment on above: Performed By: #### L 100.0100, L500.2500 ####[facility] [address] [place], [address] Hemoglobin (Bld) [Mass/Vol] 10.0 g/dL Low 13.0-16.5 [facility] Comment on above: Performed By: #### L 100.0100, L500.2500 ####[facility] [address] [place], [address] IG% 0.600 Normal 0.0-0.9 [facility] Comment on above: Result Comment: IG% - Immature Granulocytes (promyelocytes, myelocytes andmetamyelocytes) > 1% indicates that a LEFT SHIFT is Present. Performed By: #### L 100.0100, L500.2500 ####[facility] [address] [place], [address] Lymphocytes/100 WBC (Bld) 21.3 % Normal 19-41 [facility] Comment on above: Performed By: #### L 100.0100, L500.2500 ####[facility] [address] [place], [address] MCH (RBC) [Entitic mass] 28.4 pg Normal 27.0-32.0 [facility] Comment on above: Performed By: #### L 100.0100, L500.2500 ####[facility] [address] [place], [address] MCHC (RBC) [Mass/Vol] 33.6 g/dL Normal 32-36 [facility] Comment on above: Performed By: #### L 100.0100, L500.2500 ####[facility] [address] [place], [address] MCV (RBC) [Entitic vol] 84.7 fL Normal 80-94 [facility] Comment on above: Performed By: #### L 100.0100, L500.2500 ####[facility] [address] [place], [address] Monocytes/100 WBC (Bld) 10.2 % High 0-10 [facility] Comment on above: Performed By: #### L 100.0100, L500.2500 ####[facility] [address] [place], [address] Neutrophils/100 WBC (Bld) 63.1 % Normal 47-70 [facility] Comment on above: Performed By: #### L 100.0100, L500.2500 ####[facility] [address] [place], [address] Nucleated RBC (Bld) [#/Vol] 0 10*3/uL Normal 0-5 [facility] Comment on above: Performed By: #### L 100.0100, L500.2500 ####[facility] [address] [place], [address] Platelet mean volume (Bld) [Entitic vol] 10.3 fL Normal 6.2-12.0 [facility] Comment on above: Performed By: #### L 100.0100, L500.2500 ####[facility] [address] [place], [address] Platelets (Bld) [#/Vol] 125 10*3/uL Low 150-450 [facility] Comment on above: Performed By: #### L 100.0100, L500.2500 ####[facility] [address] [place], [address] RBC (Bld) [#/Vol] 3.52 10*6/uL Low 4.6-6.2 [facility] Comment on above: Performed By: #### L 100.0100, L500.2500 ####[facility] [address] [place], [address] RDW SD 47.8 fl High 35.1-43.9 [facility] Comment on above: Performed By: #### L 100.0100, L500.2500 ####[facility] [address] [place], [address] WBC (Bld) [#/Vol] 3.1 10*3/uL Low 4.4-11.0 [facility] Comment on above: Performed By: #### L 100.0100, L500.2500 ####[facility] [address] [place], [address] Basic Metabolic Profile (BMP )on 04-11-2024 BUN/CRE 15.1 RATIO Normal 10-20 [facility] Comment on above: Performed By: #### L 100.0100, L500.2500 ####[facility] [address] [place], [address] CA,Total 8.7 mg/dL Normal 8.5-10.1 [facility] Comment on above: Performed By: #### L 100.0100, L500.2500 ####[facility] [address] [place], [address] Chloride [Moles/Vol] 111 mmol/L High 98-107 [facility] Comment on above: Performed By: #### L 100.0100, L500.2500 ####[facility] [address] [place], [address] CO2 [Moles/Vol] 20.0 mmol/L Low 21.0-32.0 [facility] Comment on above: Performed By: #### L 100.0100, L500.2500 ####[facility] [address] [place], [address] Creatinine [Mass/Vol] 0.93 mg/dL Normal 0.70-1.30 [facility] Comment on above: Result Comment: The validity of the calculated GFR GFRAA in patients over70 years has not been determined. Clinical correlation isessential. Performed By: #### L 100.0100, L500.2500 ####[facility] [address] [place], [address] ECRCL 81.50 ml/min Normal [facility] Comment on above: Performed By: #### L 100.0100, L500.2500 ####[facility] [address] [place], [address] EST GFR - AA 102 mL/min Normal >60 [facility] Comment on above: Result Comment: Afri can [place] Citizen GFR Calc Performed By: #### L 100.0100, L500.2500 ####[facility] [address] [place], [address] GAP 9 Normal 5-15 [facility] Comment on above: Performed By: #### L 100.0100, L500.2500 ####[facility] [address] [place], [address] GFR/1.73 sq M.predicted among non-blacks MDRD (S/P/Bld) [Vol rate/Area] 84 mL/min/{1.73_m2} Normal >60 [facility] Comment on above: Result Comment: Non- GFR Calc Performed By: #### L 100.0100, L500.2500 ####[facility] [address] [place], [address] Glucose [Mass/Vol] 88 mg/dL Normal 74-106 [facility] Comment on above: Performed By: #### L 100.0100, L500.2500 ####[facility] [address] [place], [address] Potassium [Moles/Vol] 3.3 mmol/L Low 3.5-5.1 [facility] Comment on above: Performed By: #### L 100.0100, L500.2500 ####[facility] [address] [place], [address] Sodium [Moles/Vol] 139 mmol/L Normal 136-145 [facility] Comment on above: Performed By: #### L 100.0100, L500.2500 ####[facility] [address] [place], [address] Urea nitrogen [Mass/Vol] 14 mg/dL Normal 7-18 [facility] Comment on above: Performed By: #### L 100.0100, L500.2500 ####[facility] [address] [place], [address] CBC W/Diff, Automatedon 03-16 Absolute Lymph 0.81 X10 3/uL Low 0.83-4.51 [facility] Comment on above: Performed By: #### L 100.0100, L500.2500 ####[facility] [address] [place], [address] Absolute Neut 1.6 X10 3/uL Low 2.0-7.7 [facility] Comment on above: Performed By: #### L 100.0100, L500.2500 ####[facility] [address] [place], [address] Basophils/100 WBC (Bld) 0.3 % Normal 0-1 [facility] Comment on above: Performed By: #### L 100.0100, L500.2500 ####[facility] [address] [place], [address] Eosinophils/100 WBC (Bld) 3.8 % Normal 0-5 [facility] Comment on above: Performed By: #### L 100.0100, L500.2500 ####[facility] [address] [place], [address] Erythrocyte distribution width (RBC) [Ratio] 15.6 % High 11.6-14.6 [facility] Comment on above: Performed By: #### L 100.0100, L500.2500 ####[facility] [address] [place], [address] Hematocrit (Bld) [Volume fraction] 30.8 % Low 40-54 [facility] Comment on above: Performed By: #### L 100.0100, L500.2500 ####[facility] [address] [place], [address] Hemoglobin (Bld) [Mass/Vol] 9.9 g/dL Low 13.0-16.5 [facility] Comment on above: Performed By: #### L 100.0100, L500.2500 ####[facility] [address] [place], [address] IG% 0.300 Normal 0.0-0.9 [facility] Comment on above: Result Comment: IG% - Immature Granulocytes (promyelocytes, myelocytes andmetamyelocytes) > 1% indicates that a LEFT SHIFT is Present. Performed By: #### L 100.0100, L500.2500 ####[facility] [address] [place], [address] Lymphocytes/100 WBC (Bld) 27.6 % Normal 19-41 [facility] Comment on above: Performed By: #### L 100.0100, L500.2500 ####[facility] [address] [place], [address] MCH (RBC) [Entitic mass] 27.9 pg Normal 27.0-32.0 [facility] Comment on above: Performed By: #### L 100.0100, L500.2500 ####[facility] [address] [place], [address] MCHC (RBC) [Mass/Vol] 32.1 g/dL Normal 32-36 [facility] Comment on above: Performed By: #### L 100.0100, L500.2500 ####[facility] [address] [place], [address] MCV (RBC) [Entitic vol] 86.8 fL Normal 80-94 [facility] Comment on above: Performed By: #### L 100.0100, L500.2500 ####[facility] [address] [place], [address] Monocytes/100 WBC (Bld) 13.7 % High 0-10 [facility] Comment on above: Performed By: #### L 100.0100, L500.2500 ####[facility] [address] [place], [address] Neutrophils/100 WBC (Bld) 54.3 % Normal 47-70 [facility] Comment on above: Performed By: #### L 100.0100, L500.2500 ####[facility] [address] [place], [address] Nucleated RBC (Bld) [#/Vol] 0 10*3/uL Normal 0-5 [facility] Comment on above: Performed By: #### L 100.0100, L500.2500 ####[facility] [address] [place], [address] Platelet mean volume (Bld) [Entitic vol] 10.3 fL Normal 6.2-12.0 [facility] Comment on above: Performed By: #### L 100.0100, L500.2500 ####[facility] [address] [place], [address] Platelets (Bld) [#/Vol] 124 10*3/uL Low 150-450 [facility] Comment on above: Performed By: #### L 100.0100, L500.2500 ####[facility] [address] [place], [address] RBC (Bld) [#/Vol] 3.55 10*6/uL Low 4.6-6.2 [facility] Comment on above: Performed By: #### L 100.0100, L500.2500 ####[facility] [address] [place], [address] RDW SD 49.6 fl High 35.1-43.9 [facility] Comment on above: Performed By: #### L 100.0100, L500.2500 ####[facility] [address] [place], [address] WBC (Bld) [#/Vol] 2.9 10*3/uL Low 4.4-11.0 [facility] Comment on above: Performed By: #### L 100.0100, L500.2500 ####[facility] [address] [place], [address] Culture, Blood (WB)on 2024 CUB No growth in 5 days. Normal [facility] Comment on above: Performed By: #### M 200.1000 ####[facility] [address] [place], [address] Consultation - Urologyon Consultation - Urology Normal [facility] Urine Cultureon 04-10-2024 URC Normal [facility] Comment on above: Performed By: #### M 100.2200 ####[facility] [address] [place], [address] Abdomen/Pelvis WITH Contrast on 04-07-2024 Abdomen/Pelvis WITH Contrast Normal [facility] RESPIRATORY PANEL MOLECULARo n 04-07-2024 RP PANEL Normal [facility] Comment on above: Performed By: #### M 100.638 ####[facility] [address] [place], [address] COVID 19 AG RAPID (RN COLLEC T)on 04-06-2024 SARS-CoV-2 (COVID-19) RNA ALEXYS+probe Ql (Unsp spec) Normal [facility] Comment on above: Performed By: #### M 100.505 ####[facility] [address] [place], [address] COVID-19 virus antigen assay Ordered By: Luis Carlos Gallardo on 04-06-2024 SARS-CoV-2 (COVID-19) Ag IA.rapid Ql (Resp) [facility] Chest PA and Lateralon 04-06 Chest PA and Lateral Normal [facility] Respiratory pathogens detect ion panel by molecular detection methodOrdered By: Luis Carlos Gallardo on 04-06-2024 Respiratory pathogens DNA and RNA panel ALEXYS+probe (Resp) [facility] Urine Cultureon 04-06-2024 URC Normal [facility] Comment on above: Performed By: #### L 400.0001, M100.2200 ####[facility] [address] [place], [address] Basic Metabolic Profile (BMP )on 04-05-2024 BUN/CRE 21.1 RATIO High 10-20 [facility] Comment on above: Performed By: #### L 100.0100, L500.2500 ####[facility] [address] [place], [address] CA,Total 9.3 mg/dL Normal 8.5-10.1 [facility] Comment on above: Performed By: #### L 100.0100, L500.2500 ####[facility] [address] [place], [address] Chloride [Moles/Vol] 107 mmol/L Normal 98-107 [facility] Comment on above: Performed By: #### L 100.0100, L500.2500 ####[facility] [address] [place], [address] CO2 [Moles/Vol] 25.0 mmol/L Normal 21.0-32.0 [facility] Comment on above: Performed By: #### L 100.0100, L500.2500 ####[facility] [address] [place], [address] Creatinine [Mass/Vol] 1.14 mg/dL Normal 0.70-1.30 [facility] Comment on above: Result Comment: The validity of the calculated GFR GFRAA in patients over70 years has not been determined. Clinical correlation isessential. Performed By: #### L 100.0100, L500.2500 ####[facility] [address] [place], [address] ECRCL 66.48 ml/min Normal [facility] Comment on above: Performed By: #### L 100.0100, L500.2500 ####[facility] [address] [place], [address] EST GFR - AA 80 mL/min Normal >60 [facility] Comment on above: Result Comment: Afri can [place] Citizen GFR Calc Performed By: #### L 100.0100, L500.2500 ####[facility] [address] [place], [address] GAP 8 Normal 5-15 [facility] Comment on above: Performed By: #### L 100.0100, L500.2500 ####[facility] [address] [place], [address] GFR/1.73 sq M.predicted among non-blacks MDRD (S/P/Bld) [Vol rate/Area] 66 mL/min/{1.73_m2} Normal >60 [facility] Comment on above: Result Comment: Non- GFR Calc Performed By: #### L 100.0100, L500.2500 ####[facility] [address] [place], [address] Glucose [Mass/Vol] 109 mg/dL High 74-106 [facility] Comment on above: Result Comment: Fast ing Glucose result from 100 to 125 mg/dLsuggests IMPAIRED HOMEOSTASIS per A.D.A. criteria. Performed By: #### L 100.0100, L500.2500 ####[facility] [address] [place], [address] Potassium [Moles/Vol] 4.3 mmol/L Normal 3.5-5.1 [facility] Comment on above: Performed By: #### L 100.0100, L500.2500 ####[facility] [address] [place], [address] Sodium [Moles/Vol] 140 mmol/L Normal 136-145 [facility] Comment on above: Performed By: #### L 100.0100, L500.2500 ####[facility] [address] [place], [address] Urea nitrogen [Mass/Vol] 24 mg/dL High 7-18 [facility] Comment on above: Performed By: #### L 100.0100, L500.2500 ####[facility] [address] [place], [address] Bedside Glucoseon 04-05-2024 FINGERSTICK GLU 135 mg/dL High 74-106 [facility] Comment on above: Result Comment: NETO XIE OF PATIENT CARE PER NURSING PROTOCOL Performed By: #### L 501.080 ####[facility] [address] [place], [address] Bilirubin Test strip Ql (U)O rdered By: Luis Carlos Gallardo on 04-05-2024 Bilirubin Ql (U) Negative Negative [facility] Blood cultureOrdered By: Luis Carlos Gallardo on 04-05-2024 Bacteria identified Cx Nom (Bld) No growth in 5 days. [facility] CBC W/Diff, Automatedon 03-16 Absolute Lymph 0.44 X10 3/uL Low 0.83-4.51 [facility] Comment on above: Performed By: #### L 100.0100, L500.2500 ####[facility] [address] [place], [address] Absolute Neut 7.2 X10 3/uL Normal 2.0-7.7 [facility] Comment on above: Performed By: #### L 100.0100, L500.2500 ####[facility] [address] [place], [address] Basophils/100 WBC (Bld) 0.2 % Normal 0-1 [facility] Comment on above: Performed By: #### L 100.0100, L500.2500 ####[facility] [address] [place], [address] Eosinophils/100 WBC (Bld) 1.8 % Normal 0-5 [facility] Comment on above: Performed By: #### L 100.0100, L500.2500 ####[facility] [address] [place], [address] Erythrocyte distribution width (RBC) [Ratio] 15.6 % High 11.6-14.6 [facility] Comment on above: Performed By: #### L 100.0100, L500.2500 ####[facility] [address] [place], [address] Hematocrit (Bld) [Volume fraction] 35.4 % Low 40-54 [facility] Comment on above: Performed By: #### L 100.0100, L500.2500 ####[facility] [address] [place], [address] Hemoglobin (Bld) [Mass/Vol] 11.6 g/dL Low 13.0-16.5 [facility] Comment on above: Performed By: #### L 100.0100, L500.2500 ####[facility] [address] [place], [address] IG% 0.200 Normal 0.0-0.9 [facility] Comment on above: Result Comment: IG% - Immature Granulocytes (promyelocytes, myelocytes andmetamyelocytes) > 1% indicates that a LEFT SHIFT is Present. Performed By: #### L 100.0100, L500.2500 ####[facility] [address] [place], [address] Lymphocytes/100 WBC (Bld) 5.2 % Low 19-41 [facility] Comment on above: Performed By: #### L 100.0100, L500.2500 ####[facility] [address] [place], [address] MCH (RBC) [Entitic mass] 28.6 pg Normal 27.0-32.0 [facility] Comment on above: Performed By: #### L 100.0100, L500.2500 ####[facility] [address] [place], [address] MCHC (RBC) [Mass/Vol] 32.8 g/dL Normal 32-36 [facility] Comment on above: Performed By: #### L 100.0100, L500.2500 ####[facility] [address] [place], [address] MCV (RBC) [Entitic vol] 87.2 fL Normal 80-94 [facility] Comment on above: Performed By: #### L 100.0100, L500.2500 ####[facility] [address] [place], [address] Monocytes/100 WBC (Bld) 7.8 % Normal 0-10 [facility] Comment on above: Performed By: #### L 100.0100, L500.2500 ####[facility] [address] [place], [address] Neutrophils/100 WBC (Bld) 84.8 % High 47-70 [facility] Comment on above: Performed By: #### L 100.0100, L500.2500 ####[facility] [address] [place], [address] Nucleated RBC (Bld) [#/Vol] 0 10*3/uL Normal 0-5 [facility] Comment on above: Performed By: #### L 100.0100, L500.2500 ####[facility] [address] [place], [address] Platelet mean volume (Bld) [Entitic vol] 10.0 fL Normal 6.2-12.0 [facility] Comment on above: Performed By: #### L 100.0100, L500.2500 ####[facility] [address] [place], [address] Platelets (Bld) [#/Vol] 183 10*3/uL Normal 150-450 [facility] Comment on above: Performed By: #### L 100.0100, L500.2500 ####[facility] [address] [place], [address] RBC (Bld) [#/Vol] 4.06 10*6/uL Low 4.6-6.2 [facility] Comment on above: Performed By: #### L 100.0100, L500.2500 ####[facility] [address] [place], [address] RDW SD 48.9 fl High 35.1-43.9 [facility] Comment on above: Performed By: #### L 100.0100, L500.2500 ####[facility] [address] [place], [address] WBC (Bld) [#/Vol] 8.5 10*3/uL Normal 4.4-11.0 [facility] Comment on above: Performed By: #### L 100.0100, L500.2500 ####[facility] [address] [place], [address] Ketones Test strip Ql (U)Ord ered By: Luis Carlos Gallardo on 04-05-2024 Ketones Ql (U) Negative Negative [facility] Protein Test strip Ql (U)Ord ered By: Luis Carlos Gallardo on 04-05-2024 Protein Ql (U) 30 mg/dl High Negative [facility] Urinalysis, Routine (Dipstic k)on 04-05-2024 BILIRUBIN URINE Negative Normal Negative [facility] Comment on above: Order Comment: SONALI ARRINGTONOR TO SPECIFY Performed By: #### L 400.2010 ####[facility] [address] [place], [address] GLUCOSE, UR Normal Normal Normal [facility] Comment on above: Order Comment: SONALI ARRINGTONOR TO SPECIFY Performed By: #### L 400.2010 ####[facility] [address] [place], [address] KETONE UR Negative Normal Negative [facility] Comment on above: Order Comment: COLLE CTOR TO SPECIFY Performed By: #### L 400.2010 ####[facility] [address] [place], [address] LEUK ESTERASE 500 /ul Abnormal Negative [facility] Comment on above: Order Comment: COLLE CTOR TO SPECIFY Performed By: #### L 400.2010 ####[facility] [address] [place], [address] OCCULT BLOOD-UR 150 /ul Abnormal Negative [facility] Comment on above: Order Comment: COLLE CTOR TO SPECIFY Performed By: #### L 400.2010 ####[facility] [address] [place], [address] pH UR 7.0 Normal 5.0 - 8.0 [facility] Comment on above: Order Comment: SONALI CTOR TO SPECIFY Performed By: #### L 400.2010 ####[facility] [address] [place], [address] PROT DIPSTX 30 mg/dl Abnormal Negative [facility] Comment on above: Order Comment: COLLE CTOR TO SPECIFY Performed By: #### L 400.2010 ####[facility] [address] [place], [address] SP.GR. DIPSTX 1.010 Normal 1.002-1.03 0 [facility] Comment on above: Order Comment: COLLE CTOR TO SPECIFY Performed By: #### L 400.2010 ####[facility] [address] [place], [address] UROBILI Normal Normal Normal [facility] Comment on above: Order Comment: COLLE CTOR TO SPECIFY Performed By: #### L 400.2010 ####[facility] [address] [place], [place], [address] Urine clarityOrdered By: Luis Carlos Gallardo on 04-05-2024 Clarity (U) Cloudy Normal Clear [facility] Comment on above: Order Comment: SONALI CTOR TO SPECIFY Performed By: #### L 400.2010 ####[facility] [address] [place], [place], [address] Urine color determinationOrd ered By: Luis Carlos Gallardo on 04-05-2024 Color (U) Yellow Normal Yellow [facility] Comment on above: Order Comment: SONALI CTOR TO SPECIFY Performed By: #### L 400.2010 ####[facility] [address] [place], [place], [id number] Urine cultureOrdered By: Luis Carlos Gallardo on 04-05-2024 Bacteria identified Cx Nom (U) Pseudomonas fluorescens Abnormal [facility] Urine glucose detectionOrder ed By: Luis Carlos Gallardo on 04-05-2024 Glucose Ql (U) Normal mg/dl Normal [facility] Urine leukocyte esterase det ection by dipstickOrdered By: Luis Carlos Gallardo on 04-05-2024 Leukocyte esterase Test strip Ql (U) 500 /ul High Negative [facility] Urine nitrite test by dipsti ckOrdered By: Luis Carlos Gallardo on 04-05-2024 Nitrite Ql (U) Positive Abnormal Negative [facility] Comment on above: Order Comment: SONALI CTOR TO SPECIFY Performed By: #### L 400.2010 ####[facility] [address] [place], [place], [address] Urine pHOrdered By: Luis Carlos Gallardo on 04-05-2024 pH (U) 7.0 [pH] 5.0 - 8.0 [facility] Urine specific gravity measu rementOrdered By: Luis Carlos Gallardo on 04-05-2024 Specific gravity (U) [Rel density] 1.010 1.002-1.03 0 [facility] Urine urobilinogen measureme ntOrdered By: Luis Carlos Gallardo on 04-05-2024 Urobilinogen Ql (U) Normal mg/dl Normal [facility] Basic Metabolic Profile (BMP )on 04-04-2024 BUN/CRE 20.5 RATIO High 10-20 [facility] Comment on above: Performed By: #### L 100.0100, L500.2500 ####[facility] [address] [place], [address] CA,Total 9.7 mg/dL Normal 8.5-10.1 [facility] Comment on above: Performed By: #### L 100.0100, L500.2500 ####[facility] [address] [place], [address] Chloride [Moles/Vol] 108 mmol/L High 98-107 [facility] Comment on above: Performed By: #### L 100.0100, L500.2500 ####[facility] [address] [place], [address] CO2 [Moles/Vol] 26.0 mmol/L Normal 21.0-32.0 [facility] Comment on above: Performed By: #### L 100.0100, L500.2500 ####[facility] [address] [place], [address] Creatinine [Mass/Vol] 0.98 mg/dL Normal 0.70-1.30 [facility] Comment on above: Result Comment: The validity of the calculated GFR GFRAA in patients over70 years has not been determined. Clinical correlation isessential. Performed By: #### L 100.0100, L500.2500 ####[facility] [address] [place], [address] ECRCL 77.82 ml/min Normal [facility] Comment on above: Performed By: #### L 100.0100, L500.2500 ####[facility] [address] [place], [address] EST GFR - AA 96 mL/min Normal >60 [facility] Comment on above: Result Comment: Afri can [place] Citizen GFR Calc Performed By: #### L 100.0100, L500.2500 ####[facility] [address] [place], [address] GAP 5 Normal 5-15 [facility] Comment on above: Performed By: #### L 100.0100, L500.2500 ####[facility] [address] [place], [address] GFR/1.73 sq M.predicted among non-blacks MDRD (S/P/Bld) [Vol rate/Area] 79 mL/min/{1.73_m2} Normal >60 [facility] Comment on above: Result Comment: Non- GFR Calc Performed By: #### L 100.0100, L500.2500 ####[facility] [address] [place], [address] Glucose [Mass/Vol] 93 mg/dL Normal 74-106 [facility] Comment on above: Performed By: #### L 100.0100, L500.2500 ####[facility] [address] [place], [address] Potassium [Moles/Vol] 3.7 mmol/L Normal 3.5-5.1 [facility] Comment on above: Performed By: #### L 100.0100, L500.2500 ####[facility] [address] [place], [address] Sodium [Moles/Vol] 139 mmol/L Normal 136-145 [facility] Comment on above: Performed By: #### L 100.0100, L500.2500 ####[facility] [address] [place], [address] Urea nitrogen [Mass/Vol] 20 mg/dL High 7-18 [facility] Comment on above: Performed By: #### L 100.0100, L500.2500 ####[facility] [address] [place], [address] BUN Normal 7-18 [facility] Comment on above: Result Comment: Canc elled via OM: Order cancelled - Patient discharged Performed By: #### L 500.2500, L100.0100 ####[facility] [address] [place], [address] BUN/CRE Normal 10-20 [facility] Comment on above: Result Comment: Canc elled via OM: Order cancelled - Patient discharged Performed By: #### L 500.2500, L100.0100 ####[facility] [address] [place], [address] CA,Total Normal 8.5-10.1 [facility] Comment on above: Result Comment: Canc elled via OM: Order cancelled - Patient discharged Performed By: #### L 500.2500, L100.0100 ####[facility] [address] [place], [address] CL Normal 98-107 [facility] Comment on above: Result Comment: Canc elled via OM: Order cancelled - Patient discharged Performed By: #### L 500.2500, L100.0100 ####[facility] [address] [place], [address] CO2 Normal 21.0-32.0 [facility] Comment on above: Result Comment: Canc elled via OM: Order cancelled - Patient discharged Performed By: #### L 500.2500, L100.0100 ####[facility] [address] [place], [address] CREAT,SERUM Normal 0.70-1.30 [facility] Comment on above: Result Comment: Canc elled via OM: Order cancelled - Patient discharged Performed By: #### L 500.2500, L100.0100 ####[facility] [address] [place], [address] EST GFR Normal >60 [facility] Comment on above: Result Comment: Canc elled via OM: Order cancelled - Patient discharged Performed By: #### L 500.2500, L100.0100 ####[facility] [address] [place], [address] EST GFR - AA Normal >60 [facility] Comment on above: Result Comment: Canc elled via OM: Order cancelled - Patient discharged Performed By: #### L 500.2500, L100.0100 ####[facility] [address] [place], [address] GAP Normal 5-15 [facility] Comment on above: Result Comment: Canc elled via OM: Order cancelled - Patient discharged Performed By: #### L 500.2500, L100.0100 ####[facility] [address] [place], [address] GLU Normal 74-106 [facility] [facility] Comment on above: Result Comment: Canc elled via OM: Order cancelled - Patient discharged Performed By: #### L 500.2500, L100.0100 ####[facility] [address] [place], [address] Potassium Normal 3.5-5.1 [facility] Comment on above: Result Comment: Canc elled via OM: Order cancelled - Patient discharged Performed By: #### L 500.2500, L100.0100 ####[facility] [address] [place], [address] Basic Metabolic Profile (BMP) Normal 136-145 [facility] Comment on above: Result Comment: Canc elled via OM: Order cancelled - Patient discharged Performed By: #### L 500.2500, L100.0100 ####[facility] [address] [place], [address] CBC W/Diff, Automatedon 01-2 Absolute Neut Normal 2.0-7.7 [facility] Comment on above: Result Comment: Canc elled via OM: Order cancelled - Patient discharged Performed By: #### L 500.2500, L100.0100 ####[facility] [address] [place], [address] HCT Normal 40-54 [facility] Comment on above: Result Comment: Canc elled via OM: Order cancelled - Patient discharged Performed By: #### L 500.2500, L100.0100 ####[facility] [address] [place], [address] HGB Normal 13.0-16.5 [facility] Comment on above: Result Comment: Canc elled via OM: Order cancelled - Patient discharged Performed By: #### L 500.2500, L100.0100 ####[facility] [address] [place], [address] MCH Normal 27.0-32.0 [facility] Comment on above: Result Comment: Canc elled via OM: Order cancelled - Patient discharged Performed By: #### L 500.2500, L100.0100 ####[facility] [address] [place], [address] MCHC Normal 32-36 [facility] Comment on above: Result Comment: Canc elled via OM: Order cancelled - Patient discharged Performed By: #### L 500.2500, L100.0100 ####[facility] [address] [place], [address] MCV Normal 80-94 [facility] Comment on above: Result Comment: Canc elled via OM: Order cancelled - Patient discharged Performed By: #### L 500.2500, L100.0100 ####[facility] [address] [place], [address] NEUT% Normal 47-70 [facility] Comment on above: Result Comment: Canc elled via OM: Order cancelled - Patient discharged Performed By: #### L 500.2500, L100.0100 ####[facility] [address] [place], [address] PLT Normal 150-450 [facility] Comment on above: Result Comment: Canc elled via OM: Order cancelled - Patient discharged Performed By: #### L 500.2500, L100.0100 ####[facility] [address] [place], [address] RBC Normal 4.6-6.2 [facility] Comment on above: Result Comment: Canc elled via OM: Order cancelled - Patient discharged Performed By: #### L 500.2500, L100.0100 ####[facility] [address] [place], [address] RDW CV Normal 11.6-14.6 [facility] Comment on above: Result Comment: Canc elled via OM: Order cancelled - Patient discharged Performed By: #### L 500.2500, L100.0100 ####[facility] [address] [place], [address] RDW SD Normal 35.1-43.9 [facility] Comment on above: Result Comment: Canc elled via OM: Order cancelled - Patient discharged Performed By: #### L 500.2500, L100.0100 ####[facility] [address] [place], [address] WBC Normal 4.4-11.0 [facility] Comment on above: Result Comment: Canc elled via OM: Order cancelled - Patient discharged Performed By: #### L 500.2500, L100.0100 ####[facility] [address] [place], [address] Absolute Lymph 1.05 X10 3/uL Normal 0.83-4.51 [facility] Comment on above: Performed By: #### L 100.0100, L500.2500 ####[facility] [address] [place], [address] Absolute Neut 4.3 X10 3/uL Normal 2.0-7.7 [facility] Comment on above: Performed By: #### L 100.0100, L500.2500 ####[facility] [address] [place], [address] Basophils/100 WBC (Bld) 0.5 % Normal 0-1 [facility] Comment on above: Performed By: #### L 100.0100, L500.2500 ####[facility] [address] [place], [address] Eosinophils/100 WBC (Bld) 3.1 % Normal 0-5 [facility] Comment on above: Performed By: #### L 100.0100, L500.2500 ####[facility] [address] [place], [address] Erythrocyte distribution width (RBC) [Ratio] 15.3 % High 11.6-14.6 [facility] Comment on above: Performed By: #### L 100.0100, L500.2500 ####[facility] [address] [place], [address] Hematocrit (Bld) [Volume fraction] 33.2 % Low 40-54 [facility] Comment on above: Performed By: #### L 100.0100, L500.2500 ####[facility] [address] [place], [address] Hemoglobin (Bld) [Mass/Vol] 10.9 g/dL Low 13.0-16.5 [facility] Comment on above: Performed By: #### L 100.0100, L500.2500 ####[facility] [address] [place], [address] IG% 0.300 Normal 0.0-0.9 [facility] Comment on above: Result Comment: IG% - Immature Granulocytes (promyelocytes, myelocytes andmetamyelocytes) > 1% indicates that a LEFT SHIFT is Present. Performed By: #### L 100.0100, L500.2500 ####[facility] [address] [place], [address] Lymphocytes/100 WBC (Bld) 17.4 % Low 19-41 [facility] Comment on above: Performed By: #### L 100.0100, L500.2500 ####[facility] [address] [place], [address] MCH (RBC) [Entitic mass] 29.1 pg Normal 27.0-32.0 [facility] Comment on above: Performed By: #### L 100.0100, L500.2500 ####[facility] [address] [place], [address] MCHC (RBC) [Mass/Vol] 32.8 g/dL Normal 32-36 [facility] Comment on above: Performed By: #### L 100.0100, L500.2500 ####[facility] [address] [place], [address] MCV (RBC) [Entitic vol] 88.5 fL Normal 80-94 [facility] Comment on above: Performed By: #### L 100.0100, L500.2500 ####[facility] [address] [place], [address] Monocytes/100 WBC (Bld) 7.9 % Normal 0-10 [facility] Comment on above: Performed By: #### L 100.0100, L500.2500 ####[facility] [address] [place], [address] Neutrophils/100 WBC (Bld) 70.8 % High 47-70 [facility] Comment on above: Performed By: #### L 100.0100, L500.2500 ####[facility] [address] [place], [address] Nucleated RBC (Bld) [#/Vol] 0 10*3/uL Normal 0-5 [facility] Comment on above: Performed By: #### L 100.0100, L500.2500 ####[facility] [address] [place], [address] Platelet mean volume (Bld) [Entitic vol] 10.2 fL Normal 6.2-12.0 [facility] Comment on above: Performed By: #### L 100.0100, L500.2500 ####[facility] [address] [place], [address] Platelets (Bld) [#/Vol] 183 10*3/uL Normal 150-450 [facility] Comment on above: Performed By: #### L 100.0100, L500.2500 ####[facility] [address] [place], [address] RBC (Bld) [#/Vol] 3.75 10*6/uL Low 4.6-6.2 [facility] Comment on above: Performed By: #### L 100.0100, L500.2500 ####[facility] [address] [place], [address] RDW SD 49.2 fl High 35.1-43.9 [facility] Comment on above: Performed By: #### L 100.0100, L500.2500 ####[facility] [address] [place], [address] WBC (Bld) [#/Vol] 6.0 10*3/uL Normal 4.4-11.0 [facility] Comment on above: Performed By: #### L 100.0100, L500.2500 ####[facility] [address] [place], [address] Abdomen Single Viewon 2024 Abdomen Single View Normal [facility] Culture, Blood (WB)on 2024 CUB No growth in 5 days. Normal [facility] Comment on above: Performed By: #### M 200.1000 ####[facility] [address] [place], [address] Urine Cultureon 03-30-2024 URC Normal [facility] Comment on above: Performed By: #### M 100.2200 ####[facility] [address] [place], [address] Culture, Blood (WB)on 2024 CUB Only aerobic bottle was collected in this set. KARTHIKEYAN No growth in 5 days. Normal [facility] Comment on above: Performed By: #### L 100.0100, L500.4050, M200.1000 ####[facility] [address] [place], [address] Basic Metabolic Profile (BMP )on 03-28-2024 BUN/CRE 16.5 RATIO Normal 10-20 [facility] Comment on above: Performed By: #### L 100.0100, L500.2500 ####[facility] [address] [place], [address] CA,Total 8.5 mg/dL Normal 8.5-10.1 [facility] Comment on above: Performed By: #### L 100.0100, L500.2500 ####[facility] [address] [place], [address] Chloride [Moles/Vol] 110 mmol/L High 98-107 [facility] Comment on above: Performed By: #### L 100.0100, L500.2500 ####[facility] [address] [place], [address] CO2 [Moles/Vol] 26.0 mmol/L Normal 21.0-32.0 [facility] Comment on above: Performed By: #### L 100.0100, L500.2500 ####[facility] [address] [place], [address] Creatinine [Mass/Vol] 0.85 mg/dL Normal 0.70-1.30 [facility] Comment on above: Result Comment: The validity of the calculated GFR GFRAA in patients over70 years has not been determined. Clinical correlation isessential. Performed By: #### L 100.0100, L500.2500 ####[facility] [address] [place], [address] ECRCL 89.73 ml/min Normal [facility] Comment on above: Performed By: #### L 100.0100, L500.2500 ####[facility] [address] [place], [address] EST GFR - AA 113 mL/min Normal >60 [facility] Comment on above: Result Comment: Afri can [place] Citizen GFR Calc Performed By: #### L 100.0100, L500.2500 ####[facility] [address] [place], [address] GAP 2 Low 5-15 [facility] Comment on above: Performed By: #### L 100.0100, L500.2500 ####[facility] [address] [place], [address] GFR/1.73 sq M.predicted among non-blacks MDRD (S/P/Bld) [Vol rate/Area] 93 mL/min/{1.73_m2} Normal >60 [facility] Comment on above: Result Comment: Non- GFR Calc Performed By: #### L 100.0100, L500.2500 ####[facility] [address] [place], [address] Glucose [Mass/Vol] 92 mg/dL Normal 74-106 [facility] Comment on above: Performed By: #### L 100.0100, L500.2500 ####[facility] [address] [place], [address] Potassium [Moles/Vol] 3.5 mmol/L Normal 3.5-5.1 [facility] Comment on above: Performed By: #### L 100.0100, L500.2500 ####[facility] [address] [place], [address] Sodium [Moles/Vol] 138 mmol/L Normal 136-145 [facility] Comment on above: Performed By: #### L 100.0100, L500.2500 ####[facility] [address] [place], [address] Urea nitrogen [Mass/Vol] 14 mg/dL Normal 7-18 [facility] Comment on above: Performed By: #### L 100.0100, L500.2500 ####[facility] [address] [place], [address] BUN Normal 7-18 [facility] Comment on above: Result Comment: Canc elled via OM: Order cancelled - Patient discharged Performed By: #### L 500.2500, L100.0100 ####[facility] [address] [place], [address] BUN/CRE Normal 10-20 [facility] Comment on above: Result Comment: Canc elled via OM: Order cancelled - Patient discharged Performed By: #### L 500.2500, L100.0100 ####[facility] [address] [place], [address] CA,Total Normal 8.5-10.1 [facility] Comment on above: Result Comment: Canc elled via OM: Order cancelled - Patient discharged Performed By: #### L 500.2500, L100.0100 ####[facility] [address] [place], [address] CL Normal 98-107 [facility] Comment on above: Result Comment: Canc elled via OM: Order cancelled - Patient discharged Performed By: #### L 500.2500, L100.0100 ####[facility] [address] [place], [address] CO2 Normal 21.0-32.0 [facility] Comment on above: Result Comment: Canc elled via OM: Order cancelled - Patient discharged Performed By: #### L 500.2500, L100.0100 ####[facility] [address] [place], [address] CREAT,SERUM Normal 0.70-1.30 [facility] Comment on above: Result Comment: Canc elled via OM: Order cancelled - Patient discharged Performed By: #### L 500.2500, L100.0100 ####[facility] [address] [place], [address] EST GFR Normal >60 [facility] Comment on above: Result Comment: Canc elled via OM: Order cancelled - Patient discharged Performed By: #### L 500.2500, L100.0100 ####[facility] [address] [place], [address] EST GFR - AA Normal >60 [facility] Comment on above: Result Comment: Canc elled via OM: Order cancelled - Patient discharged Performed By: #### L 500.2500, L100.0100 ####[facility] [address] [place], [address] GAP Normal 5-15 [facility] Comment on above: Result Comment: Canc elled via OM: Order cancelled - Patient discharged Performed By: #### L 500.2500, L100.0100 ####[facility] [address] [place], [address] GLU Normal 74-106 [facility] Comment on above: Result Comment: Canc elled via OM: Order cancelled - Patient discharged Performed By: #### L 500.2500, L100.0100 ####[facility] [address] [place], [address] Potassium Normal 3.5-5.1 [facility] Comment on above: Result Comment: Canc elled via OM: Order cancelled - Patient discharged Performed By: #### L 500.2500, L100.0100 ####[facility] [address] [place], [address] Basic Metabolic Profile (BMP) Normal 136-145 [facility] Comment on above: Result Comment: Canc elled via OM: Order cancelled - Patient discharged Performed By: #### L 500.2500, L100.0100 ####[facility] [address] [place], [address] CBC W/Diff, Automatedon 03-15 Absolute Lymph 0.91 X10 3/uL Normal 0.83-4.51 [facility] Comment on above: Performed By: #### L 100.0100, L500.2500 ####[facility] [address] [place], [address] Absolute Neut 3.7 X10 3/uL Normal 2.0-7.7 [facility] Comment on above: Performed By: #### L 100.0100, L500.2500 ####[facility] [address] [place], [address] Basophils/100 WBC (Bld) 0.7 % Normal 0-1 [facility] Comment on above: Performed By: #### L 100.0100, L500.2500 ####[facility] [address] [place], [address] Eosinophils/100 WBC (Bld) 4.3 % Normal 0-5 [facility] Comment on above: Performed By: #### L 100.0100, L500.2500 ####[facility] [address] [place], [address] Erythrocyte distribution width (RBC) [Ratio] 15.0 % High 11.6-14.6 [facility] Comment on above: Performed By: #### L 100.0100, L500.2500 ####[facility] [address] [place], [address] Hematocrit (Bld) [Volume fraction] 30.4 % Low 40-54 [facility] Comment on above: Performed By: #### L 100.0100, L500.2500 ####[facility] [address] [place], [address] Hemoglobin (Bld) [Mass/Vol] 9.9 g/dL Low 13.0-16.5 [facility] Comment on above: Performed By: #### L 100.0100, L500.2500 ####[facility] [address] [place], [address] IG% 0.400 Normal 0.0-0.9 [facility] Comment on above: Result Comment: IG% - Immature Granulocytes (promyelocytes, myelocytes andmetamyelocytes) > 1% indicates that a LEFT SHIFT is Present. Performed By: #### L 100.0100, L500.2500 ####[facility] [address] [place], [address] Lymphocytes/100 WBC (Bld) 16.9 % Low 19-41 [facility] Comment on above: Performed By: #### L 100.0100, L500.2500 ####[facility] [address] [place], [address] MCH (RBC) [Entitic mass] 28.6 pg Normal 27.0-32.0 [facility] Comment on above: Performed By: #### L 100.0100, L500.2500 ####[facility] [address] [place], [address] MCHC (RBC) [Mass/Vol] 32.6 g/dL Normal 32-36 [facility] Comment on above: Performed By: #### L 100.0100, L500.2500 ####[facility] [address] [place], [address] MCV (RBC) [Entitic vol] 87.9 fL Normal 80-94 [facility] Comment on above: Performed By: #### L 100.0100, L500.2500 ####[facility] [address] [place], [address] Monocytes/100 WBC (Bld) 10.0 % Normal 0-10 [facility] Comment on above: Performed By: #### L 100.0100, L500.2500 ####[facility] [address] [place], [address] Neutrophils/100 WBC (Bld) 67.7 % Normal 47-70 [facility] Comment on above: Performed By: #### L 100.0100, L500.2500 ####[facility] [address] [place], [address] Nucleated RBC (Bld) [#/Vol] 0 10*3/uL Normal 0-5 [facility] Comment on above: Performed By: #### L 100.0100, L500.2500 ####[facility] [address] [place], [address] Platelet mean volume (Bld) [Entitic vol] 10.0 fL Normal 6.2-12.0 [facility] Comment on above: Performed By: #### L 100.0100, L500.2500 ####[facility] [address] [place], [address] Platelets (Bld) [#/Vol] 167 10*3/uL Normal 150-450 [facility] Comment on above: Performed By: #### L 100.0100, L500.2500 ####[facility] [address] [place], [address] RBC (Bld) [#/Vol] 3.46 10*6/uL Low 4.6-6.2 [facility] Comment on above: Performed By: #### L 100.0100, L500.2500 ####[facility] [address] [place], [address] RDW SD 47.9 fl High 35.1-43.9 [facility] Comment on above: Performed By: #### L 100.0100, L500.2500 ####[facility] [address] [place], [address] WBC (Bld) [#/Vol] 5.4 10*3/uL Normal 4.4-11.0 [facility] Comment on above: Performed By: #### L 100.0100, L500.2500 ####[facility] [address] [place], [address] Absolute Neut Normal 2.0-7.7 [facility] Comment on above: Result Comment: Canc elled via OM: Order cancelled - Patient discharged Performed By: #### L 500.2500, L100.0100 ####[facility] [address] [place], [address] HCT Normal 40-54 [facility] Comment on above: Result Comment: Canc elled via OM: Order cancelled - Patient discharged Performed By: #### L 500.2500, L100.0100 ####[facility] [address] [place], [address] HGB Normal 13.0-16.5 [facility] Comment on above: Result Comment: Canc elled via OM: Order cancelled - Patient discharged Performed By: #### L 500.2500, L100.0100 ####[facility] [address] [place], [address] MCH Normal 27.0-32.0 [facility] Comment on above: Result Comment: Canc elled via OM: Order cancelled - Patient discharged Performed By: #### L 500.2500, L100.0100 ####[facility] [address] [place], [address] MCHC Normal 32-36 [facility] Comment on above: Result Comment: Canc elled via OM: Order cancelled - Patient discharged Performed By: #### L 500.2500, L100.0100 ####[facility] [address] [place], [address] MCV Normal 80-94 [facility] Comment on above: Result Comment: Canc elled via OM: Order cancelled - Patient discharged Performed By: #### L 500.2500, L100.0100 ####[facility] [address] [place], [address] NEUT% Normal 47-70 [facility] Comment on above: Result Comment: Canc elled via OM: Order cancelled - Patient discharged Performed By: #### L 500.2500, L100.0100 ####[facility] [address] [place], [address] PLT Normal 150-450 [facility] Comment on above: Result Comment: Canc elled via OM: Order cancelled - Patient discharged Performed By: #### L 500.2500, L100.0100 ####[facility] [address] [place], [address] RBC Normal 4.6-6.2 [facility] Comment on above: Result Comment: Canc elled via OM: Order cancelled - Patient discharged Performed By: #### L 500.2500, L100.0100 ####[facility] [address] [place], [address] RDW CV Normal 11.6-14.6 [facility] Comment on above: Result Comment: Canc elled via OM: Order cancelled - Patient discharged Performed By: #### L 500.2500, L100.0100 ####[facility] [address] [place], [address] RDW SD Normal 35.1-43.9 [facility] Comment on above: Result Comment: Canc elled via OM: Order cancelled - Patient discharged Performed By: #### L 500.2500, L100.0100 ####[facility] [address] [place], [address] WBC Normal 4.4-11.0 [facility] Comment on above: Result Comment: Canc elled via OM: Order cancelled - Patient discharged Performed By: #### L 500.2500, L100.0100 ####[facility] [address] [place], [address] Culture, Blood (WB)on 2024 CUB Blood cultures x2, f rom two different sites No growth in 5 days. Normal [facility] Comment on above: Performed By: #### L 100.0100, L500.4050, L503.6005, M200.1000 ####[facility] [address] [place], [address] CUB LEFT WRIST Blood cultures x2, from two different sites No growth in 5 days. Normal [facility] Comment on above: Performed By: #### M 200.1000 ####[facility] [address] [place], [address] Basic Metabolic Profile (BMP )on 03-27-2024 BUN/CRE 13.2 RATIO Normal 10-20 [facility] Comment on above: Performed By: #### L 100.0100, L300.3900, L500.2500, L501.5200 ####[facility] [address] [place], [address] CA,Total 8.6 mg/dL Normal 8.5-10.1 [facility] Comment on above: Performed By: #### L 100.0100, L300.3900, L500.2500, L501.5200 ####[facility] [address] [place], [address] Chloride [Moles/Vol] 110 mmol/L High 98-107 [facility] Comment on above: Performed By: #### L 100.0100, L300.3900, L500.2500, L501.5200 ####[facility] [address] [place], [address] CO2 [Moles/Vol] 23.0 mmol/L Normal 21.0-32.0 [facility] Comment on above: Performed By: #### L 100.0100, L300.3900, L500.2500, L501.5200 ####[facility] [address] [place], [address] Creatinine [Mass/Vol] 0.83 mg/dL Normal 0.70-1.30 [facility] Comment on above: Result Comment: The validity of the calculated GFR GFRAA in patients over70 years has not been determined. Clinical correlation isessential. Performed By: #### L 100.0100, L300.3900, L500.2500, L501.5200 ####[facility] [address] [place], [address] ECRCL 90.60 ml/min Normal [facility] Comment on above: Performed By: #### L 100.0100, L300.3900, L500.2500, L501.5200 ####[facility] [address] [place], [address] EST GFR - AA 115 mL/min Normal >60 [facility] Comment on above: Result Comment: Afri can [place] GFR Calc Performed By: #### L 100.0100, L300.3900, L500.2500, L501.5200 ####[facility] [address] [place], [address] GAP 6 Normal 5-15 [facility] Comment on above: Performed By: #### L 100.0100, L300.3900, L500.2500, L501.5200 ####[facility] [address] [place], [address] GFR/1.73 sq M.predicted among non-blacks MDRD (S/P/Bld) [Vol rate/Area] 95 mL/min/{1.73_m2} Normal >60 [facility] Comment on above: Result Comment: Non- GFR Calc Performed By: #### L 100.0100, L300.3900, L500.2500, L501.5200 ####[facility] [address] [place], [address] Glucose [Mass/Vol] 88 mg/dL Normal 74-106 [facility] Comment on above: Performed By: #### L 100.0100, L300.3900, L500.2500, L501.5200 ####[facility] [address] [place], [address] Potassium [Moles/Vol] 3.4 mmol/L Low 3.5-5.1 [facility] Comment on above: Performed By: #### L 100.0100, L300.3900, L500.2500, L501.5200 ####[facility] [address] [place], [address] Sodium [Moles/Vol] 139 mmol/L Normal 136-145 [facility] Comment on above: Performed By: #### L 100.0100, L300.3900, L500.2500, L501.5200 ####[facility] [address] [place], [address] Urea nitrogen [Mass/Vol] 11 mg/dL Normal 7-18 [facility] Comment on above: Performed By: #### L 100.0100, L300.3900, L500.2500, L501.5200 ####[facility] [address] [place], [address] CBC W/Diff, Automatedon -03 17-2024 Absolute Lymph 0.96 X10 3/uL Normal 0.83-4.51 [facility] Comment on above: Performed By: #### L 100.0100, L300.3900, L500.2500, L501.5200 ####[facility] [address] [place], [address] Absolute Neut 3.6 X10 3/uL Normal 2.0-7.7 [facility] Comment on above: Performed By: #### L 100.0100, L300.3900, L500.2500, L501.5200 ####[facility] [address] [place], [address] Basophils/100 WBC (Bld) 0.6 % Normal 0-1 [facility] Comment on above: Performed By: #### L 100.0100, L300.3900, L500.2500, L501.5200 ####[facility] [address] [place], [address] Eosinophils/100 WBC (Bld) 4.2 % Normal 0-5 [facility] Comment on above: Performed By: #### L 100.0100, L300.3900, L500.2500, L501.5200 ####[facility] [address] [place], [address] Erythrocyte distribution width (RBC) [Ratio] 14.9 % High 11.6-14.6 [facility] Comment on above: Performed By: #### L 100.0100, L300.3900, L500.2500, L501.5200 ####[facility] [address] [place], [address] Hematocrit (Bld) [Volume fraction] 31.5 % Low 40-54 [facility] Comment on above: Performed By: #### L 100.0100, L300.3900, L500.2500, L501.5200 ####[facility] [address] [place], [address] Hemoglobin (Bld) [Mass/Vol] 10.0 g/dL Low 13.0-16.5 [facility] Comment on above: Performed By: #### L 100.0100, L300.3900, L500.2500, L501.5200 ####[facility] [address] [place], [address] IG% 0.200 Normal 0.0-0.9 [facility] Comment on above: Result Comment: IG% - Immature Granulocytes (promyelocytes, myelocytes andmetamyelocytes) > 1% indicates that a LEFT SHIFT is Present. Performed By: #### L 100.0100, L300.3900, L500.2500, L501.5200 ####[facility] [address] [place], [address] Lymphocytes/100 WBC (Bld) 18.3 % Low 19-41 [facility] Comment on above: Performed By: #### L 100.0100, L300.3900, L500.2500, L501.5200 ####[facility] [address] [place], [address] MCH (RBC) [Entitic mass] 27.5 pg Normal 27.0-32.0 [facility] Comment on above: Performed By: #### L 100.0100, L300.3900, L500.2500, L501.5200 ####[facility] [address] [place], [address] MCHC (RBC) [Mass/Vol] 31.7 g/dL Low 32-36 [facility] Comment on above: Performed By: #### L 100.0100, L300.3900, L500.2500, L501.5200 ####[facility] [address] [place], [address] MCV (RBC) [Entitic vol] 86.8 fL Normal 80-94 [facility] Comment on above: Performed By: #### L 100.0100, L300.3900, L500.2500, L501.5200 ####[facility] [address] [place], [address] Monocytes/100 WBC (Bld) 9.0 % Normal 0-10 [facility] Comment on above: Performed By: #### L 100.0100, L300.3900, L500.2500, L501.5200 ####[facility] [address] [place], [address] Neutrophils/100 WBC (Bld) 67.7 % Normal 47-70 [facility] Comment on above: Performed By: #### L 100.0100, L300.3900, L500.2500, L501.5200 ####[facility] [address] [place], [address] Nucleated RBC (Bld) [#/Vol] 0 10*3/uL Normal 0-5 [facility] Comment on above: Performed By: #### L 100.0100, L300.3900, L500.2500, L501.5200 ####[facility] [address] [place], [address] Platelet mean volume (Bld) [Entitic vol] 9.6 fL Normal 6.2-12.0 [facility] Comment on above: Performed By: #### L 100.0100, L300.3900, L500.2500, L501.5200 ####[facility] [address] [place], [address] Platelets (Bld) [#/Vol] 166 10*3/uL Normal 150-450 [facility] Comment on above: Performed By: #### L 100.0100, L300.3900, L500.2500, L501.5200 ####[facility] [address] [place], [address] RBC (Bld) [#/Vol] 3.63 10*6/uL Low 4.6-6.2 [facility] Comment on above: Performed By: #### L 100.0100, L300.3900, L500.2500, L501.5200 ####[facility] [address] [place], [address] RDW SD 47.6 fl High 35.1-43.9 [facility] Comment on above: Performed By: #### L 100.0100, L300.3900, L500.2500, L501.5200 ####[facility] [address] [place], [address] WBC (Bld) [#/Vol] 5.2 10*3/uL Normal 4.4-11.0 [facility] Comment on above: Performed By: #### L 100.0100, L300.3900, L500.2500, L501.5200 ####[facility] [address] [place], [address] Magnesiumon 03-27-2024 Magnesium [Mass/Vol] 2.1 mg/dL Normal 1.6-2.6 [facility] Comment on above: Performed By: #### L 100.0100, L300.3900, L500.2500, L501.5200 ####[facility] [address] [place], [address] Prothrombin Time w/INRon INR Coag (PPP) [Relative time] 1.4 {INR} Normal [facility] Comment on above: Performed By: #### L 100.0100, L300.3900, L500.2500, L501.5200 ####[facility] [address] [place], [address] PT Coag (PPP) [Time] 17.0 s High 11.7-14.9 [facility] Comment on above: Performed By: #### L 100.0100, L300.3900, L500.2500, L501.5200 ####[facility] [address] [place], [address] Culture, Blood (WB)on 2024 CUB Normal [facility] Comment on above: Performed By: #### L 500.2500, L100.0100, M200.1000 ####[facility] [address] [place], [address] Abdomen/Pelvis WITH Contrast on 03-24-2024 Abdomen/Pelvis WITH Contrast Normal [facility] CBC W/Diff, Automatedon 03-15 Absolute Lymph 0.84 X10 3/uL Normal 0.83-4.51 [facility] Comment on above: Performed By: #### L 100.0100, L500.4050, M200.1000 ####[facility] [address] [place], [address] Absolute Neut 4.8 X10 3/uL Normal 2.0-7.7 [facility] Comment on above: Performed By: #### L 100.0100, L500.4050, M200.1000 ####[facility] [address] [place], [address] Basophils/100 WBC (Bld) 0.3 % Normal 0-1 [facility] Comment on above: Performed By: #### L 100.0100, L500.4050, M200.1000 ####[facility] [address] [place], [address] Eosinophils/100 WBC (Bld) 1.4 % Normal 0-5 [facility] Comment on above: Performed By: #### L 100.0100, L500.4050, M200.1000 ####[facility] [address] [place], [address] Erythrocyte distribution width (RBC) [Ratio] 15.8 % High 11.6-14.6 [facility] Comment on above: Performed By: #### L 100.0100, L500.4050, M200.1000 ####[facility] [address] [place], [address] Hematocrit (Bld) [Volume fraction] 28.8 % Low 40-54 [facility] Comment on above: Performed By: #### L 100.0100, L500.4050, M200.1000 ####[facility] [address] [place], [address] Hemoglobin (Bld) [Mass/Vol] 9.4 g/dL Low 13.0-16.5 [facility] Comment on above: Performed By: #### L 100.0100, L500.4050, M200.1000 ####[facility] [address] [place], [address] IG% 0.500 Normal 0.0-0.9 [facility] Comment on above: Result Comment: IG% - Immature Granulocytes (promyelocytes, myelocytes andmetamyelocytes) > 1% indicates that a LEFT SHIFT is Present. Performed By: #### L 100.0100, L500.4050, M200.1000 ####[facility] [address] [place], [address] Lymphocytes/100 WBC (Bld) 13.0 % Low 19-41 [facility] Comment on above: Performed By: #### L 100.0100, L500.4050, M200.1000 ####[facility] [address] [place], [address] MCH (RBC) [Entitic mass] 28.5 pg Normal 27.0-32.0 [facility] Comment on above: Performed By: #### L 100.0100, L500.4050, M200.1000 ####[facility] [address] [place], [address] MCHC (RBC) [Mass/Vol] 32.6 g/dL Normal 32-36 [facility] Comment on above: Performed By: #### L 100.0100, L500.4050, M200.1000 ####[facility] [address] [place], [address] MCV (RBC) [Entitic vol] 87.3 fL Normal 80-94 [facility] Comment on above: Performed By: #### L 100.0100, L500.4050, M200.1000 ####[facility] [address] [place], [address] Monocytes/100 WBC (Bld) 10.7 % High 0-10 [facility] Comment on above: Performed By: #### L 100.0100, L500.4050, M200.1000 ####[facility] [address] [place], [address] Neutrophils/100 WBC (Bld) 74.1 % High 47-70 [facility] Comment on above: Performed By: #### L 100.0100, L500.4050, M200.1000 ####[facility] [address] [place], [address] Nucleated RBC (Bld) [#/Vol] 0 10*3/uL Normal 0-5 [facility] Comment on above: Performed By: #### L 100.0100, L500.4050, M200.1000 ####[facility] [address] [place], [address] Platelet mean volume (Bld) [Entitic vol] 9.8 fL Normal 6.2-12.0 [facility] Comment on above: Performed By: #### L 100.0100, L500.4050, M200.1000 ####[facility] [address] [place], [address] Platelets (Bld) [#/Vol] 137 10*3/uL Low 150-450 [facility] Comment on above: Performed By: #### L 100.0100, L500.4050, M200.1000 ####[facility] [address] [place], [address] RBC (Bld) [#/Vol] 3.30 10*6/uL Low 4.6-6.2 [facility] Comment on above: Performed By: #### L 100.0100, L500.4050, M200.1000 ####[facility] [address] [place], [address] RDW SD 50.2 fl High 35.1-43.9 [facility] Comment on above: Performed By: #### L 100.0100, L500.4050, M200.1000 ####[facility] [address] [place], [address] WBC (Bld) [#/Vol] 6.5 10*3/uL Normal 4.4-11.0 [facility] Comment on above: Performed By: #### L 100.0100, L500.4050, M200.1000 ####[facility] [address] [place], [address] Comprehensive Metabolic [facility] 03-24-2024 Albumin [Mass/Vol] 2.6 g/dL Low 3.2-5.0 [facility] Comment on above: Performed By: #### L 100.0100, L500.4050, M200.1000 ####[facility] [address] [place], [address] Albumin/Globulin [Mass ratio] 0.7 {ratio} Low 0.9-2.4 [facility] Comment on above: Performed By: #### L 100.0100, L500.4050, M200.1000 ####[facility] [address] [place], [address] ALK P 51 U/L Normal 45-117 [facility] Comment on above: Performed By: #### L 100.0100, L500.4050, M200.1000 ####[facility] [address] [place], [address] ALT [Catalytic activity/Vol] 14 U/L Low 16-61 [facility] Comment on above: Performed By: #### L 100.0100, L500.4050, M200.1000 ####[facility] [address] [place], [address] AST [Catalytic activity/Vol] 13 U/L Low 15-37 [facility] Comment on above: Performed By: #### L 100.0100, L500.4050, M200.1000 ####[facility] [address] [place], [address] Bilirubin [Mass/Vol] 0.80 mg/dL Normal 0.20-1.00 [facility] Comment on above: Result Comment: For patients on eltrombopag therapy, use of Dimension [place] TBIL is not recommended. Performed By: #### L 100.0100, L500.4050, M200.1000 ####[facility] [address] [place], [address] BUN/CRE 21.7 RATIO High 10-20 [facility] Comment on above: Performed By: #### L 100.0100, L500.4050, M200.1000 ####[facility] [address] [place], [address] CA,Total 8.0 mg/dL Low 8.5-10.1 [facility] Comment on above: Performed By: #### L 100.0100, L500.4050, M200.1000 ####[facility] [address] [place], [address] Chloride [Moles/Vol] 111 mmol/L High 98-107 [facility] Comment on above: Performed By: #### L 100.0100, L500.4050, M200.1000 ####[facility] [address] [place], [address] CO2 [Moles/Vol] 22.0 mmol/L Normal 21.0-32.0 [facility] Comment on above: Performed By: #### L 100.0100, L500.4050, M200.1000 ####[facility] [address] [place], [address] Creatinine [Mass/Vol] 0.87 mg/dL Normal 0.70-1.30 [facility] Comment on above: Result Comment: The validity of the calculated GFR GFRAA in patients over70 years has not been determined. Clinical correlation isessential. Performed By: #### L 100.0100, L500.4050, M200.1000 ####[facility] [address] [place], [address] ECRCL 86.11 ml/min Normal [facility] Comment on above: Performed By: #### L 100.0100, L500.4050, M200.1000 ####[facility] [address] [place], [address] EST GFR - AA 109 mL/min Normal >60 [facility] Comment on above: Result Comment: Afri can [place] GFR Calc Performed By: #### L 100.0100, L500.4050, M200.1000 ####[facility] [address] [place], [address] GAP 5 Normal 5-15 [facility] Comment on above: Performed By: #### L 100.0100, L500.4050, M200.1000 ####[facility] [address] [place], [address] GFR/1.73 sq M.predicted among non-blacks MDRD (S/P/Bld) [Vol rate/Area] 90 mL/min/{1.73_m2} Normal >60 [facility] Comment on above: Result Comment: Non- GFR Calc Performed By: #### L 100.0100, L500.4050, M200.1000 ####[facility] [address] [place], [address] Globulin (S) [Mass/Vol] 3.9 g/dL Normal 2.2-4.2 [facility] Comment on above: Performed By: #### L 100.0100, L500.4050, M200.1000 ####[facility] [address] [place], [address] Glucose [Mass/Vol] 95 mg/dL Normal 74-106 [facility] Comment on above: Performed By: #### L 100.0100, L500.4050, M200.1000 ####[facility] [address] [place], [address] Potassium [Moles/Vol] 3.6 mmol/L Normal 3.5-5.1 [facility] Comment on above: Performed By: #### L 100.0100, L500.4050, M200.1000 ####[facility] [address] [place], [address] Sodium [Moles/Vol] 138 mmol/L Normal 136-145 [facility] Comment on above: Performed By: #### L 100.0100, L500.4050, M200.1000 ####[facility] [address] [place], [address] T PROT 6.5 g/dL Normal 6.4-8.2 [facility] Comment on above: Performed By: #### L 100.0100, L500.4050, M200.1000 ####[facility] [address] [place], [address] Urea nitrogen [Mass/Vol] 19 mg/dL High 7-18 [facility] Comment on above: Performed By: #### L 100.0100, L500.4050, M200.1000 ####[facility] [address] [place], [address] Gentamicin, Randomon 025 GENT.RANDOM 3.2 ug/mL Normal [facility] Comment on above: Order Comment: Comme nts: PLEASE DRAW CLOSE TO 0100 POSSIBLE :) Result Comment: [place] om level based on once daily dose of antibiotic.Please contact Pharmacy Services (#[phone]) for interpretationof results.This result does not represent either a peak or a troughlevel for this drug. Performed By: #### L 501.8650 ####[facility] [address] [place], [address] M8200.1000on 03-24-2024 M8200.1000 Normal [facility] Comment on above: Performed By: #### M 8200.1000 ####[facility] [address] [place], [address] Phosphoruson 03-24-2024 Phosphate [Mass/Vol] 2.8 mg/dL Normal 2.5-4.9 [facility] Comment on above: Performed By: #### L 501.2300 ####[facility] [address] [place], [address] 12 Lead EKGon 03-23-2024 12 Lead EKG Normal [facility] CBC W/Diff, Automatedon Absolute Lymph 0.29 X10 3/uL Low 0.83-4.51 [facility] Comment on above: Performed By: #### L 100.0100, L500.4050, L503.6005, M200.1000 ####[facility] [address] [place], [address] Absolute Neut 8.9 X10 3/uL High 2.0-7.7 [facility] Comment on above: Performed By: #### L 100.0100, L500.4050, L503.6005, M200.1000 ####[facility] [address] [place], [address] Basophils/100 WBC (Bld) 0.3 % Normal 0-1 [facility] Comment on above: Performed By: #### L 100.0100, L500.4050, L503.6005, M200.1000 ####[facility] [address] [place], [address] Eosinophils/100 WBC (Bld) 0.1 % Normal 0-5 [facility] Comment on above: Performed By: #### L 100.0100, L500.4050, L503.6005, M200.1000 ####[facility] [address] [place], [address] Erythrocyte distribution width (RBC) [Ratio] 15.7 % High 11.6-14.6 [facility] Comment on above: Performed By: #### L 100.0100, L500.4050, L503.6005, M200.1000 ####[facility] [address] [place], [address] Hematocrit (Bld) [Volume fraction] 33.0 % Low 40-54 [facility] Comment on above: Performed By: #### L 100.0100, L500.4050, L503.6005, M200.1000 ####[facility] [address] [place], [address] Hemoglobin (Bld) [Mass/Vol] 10.4 g/dL Low 13.0-16.5 [facility] Comment on above: Performed By: #### L 100.0100, L500.4050, L503.6005, M200.1000 ####[facility] [address] [place], [address] IG% 0.200 Normal 0.0-0.9 [facility] Comment on above: Result Comment: IG% - Immature Granulocytes (promyelocytes, myelocytes andmetamyelocytes) > 1% indicates that a LEFT SHIFT is Present. Performed By: #### L 100.0100, L500.4050, L503.6005, M200.1000 ####[facility] [address] [place], [address] Lymphocytes/100 WBC (Bld) 3.0 % Low 19-41 [facility] Comment on above: Performed By: #### L 100.0100, L500.4050, L503.6005, M200.1000 ####[facility] [address] [place], [address] MCH (RBC) [Entitic mass] 27.6 pg Normal 27.0-32.0 [facility] Comment on above: Performed By: #### L 100.0100, L500.4050, L503.6005, M200.1000 ####[facility] [address] [place], [address] MCHC (RBC) [Mass/Vol] 31.5 g/dL Low 32-36 [facility] Comment on above: Performed By: #### L 100.0100, L500.4050, L503.6005, M200.1000 ####[facility] [address] [place], [address] MCV (RBC) [Entitic vol] 87.5 fL Normal 80-94 [facility] Comment on above: Performed By: #### L 100.0100, L500.4050, L503.6005, M200.1000 ####[facility] [address] [place], [address] Monocytes/100 WBC (Bld) 6.1 % Normal 0-10 [facility] Comment on above: Performed By: #### L 100.0100, L500.4050, L503.6005, M200.1000 ####[facility] [address] [place], [address] Neutrophils/100 WBC (Bld) 90.3 % High 47-70 [facility] Comment on above: Performed By: #### L 100.0100, L500.4050, L503.6005, M200.1000 ####[facility] [address] [place], [address] Nucleated RBC (Bld) [#/Vol] 0 10*3/uL Normal 0-5 [facility] Comment on above: Performed By: #### L 100.0100, L500.4050, L503.6005, M200.1000 ####[facility] [address] [place], [address] Platelet mean volume (Bld) [Entitic vol] 9.6 fL Normal 6.2-12.0 [facility] Comment on above: Performed By: #### L 100.0100, L500.4050, L503.6005, M200.1000 ####[facility] [address] [place], [address] Platelets (Bld) [#/Vol] 165 10*3/uL Normal 150-450 [facility] Comment on above: Performed By: #### L 100.0100, L500.4050, L503.6005, M200.1000 ####[facility] [address] [place], [address] RBC (Bld) [#/Vol] 3.77 10*6/uL Low 4.6-6.2 [facility] Comment on above: Performed By: #### L 100.0100, L500.4050, L503.6005, M200.1000 ####[facility] [address] [place], [address] RDW SD 50.0 fl High 35.1-43.9 [facility] Comment on above: Performed By: #### L 100.0100, L500.4050, L503.6005, M200.1000 ####[facility] [address] [place], [address] WBC (Bld) [#/Vol] 9.8 10*3/uL Normal 4.4-11.0 [facility] Comment on above: Performed By: #### L 100.0100, L500.4050, L503.6005, M200.1000 ####[facility] [address] [place], [address] Comprehensive Metabolic Prof ilon 03-23-2024 Albumin [Mass/Vol] 2.9 g/dL Low 3.2-5.0 [facility] Comment on above: Performed By: #### L 100.0100, L500.4050, L503.6005, M200.1000 ####[facility] [address] [place], [address] Albumin/Globulin [Mass ratio] 0.7 {ratio} Low 0.9-2.4 [facility] Comment on above: Performed By: #### L 100.0100, L500.4050, L503.6005, M200.1000 ####[facility] [address] [place], [address] ALK P 60 U/L Normal 45-117 [facility] Comment on above: Performed By: #### L 100.0100, L500.4050, L503.6005, M200.1000 ####[facility] [address] [place], [address] ALT [Catalytic activity/Vol] 17 U/L Normal 16-61 [facility] Comment on above: Performed By: #### L 100.0100, L500.4050, L503.6005, M200.1000 ####[facility] [address] [place], [address] AST [Catalytic activity/Vol] 13 U/L Low 15-37 [facility] Comment on above: Performed By: #### L 100.0100, L500.4050, L503.6005, M200.1000 ####[facility] [address] [place], [address] Bilirubin [Mass/Vol] 0.80 mg/dL Normal 0.20-1.00 [facility] Comment on above: Result Comment: For patients on eltrombopag therapy, use of Dimension [place] TBIL is not recommended. Performed By: #### L 100.0100, L500.4050, L503.6005, M200.1000 ####[facility] [id number] [place], [address] BUN/CRE 20.8 RATIO High 10-20 [facility] Comment on above: Performed By: #### L 100.0100, L500.4050, L503.6005, M200.1000 ####[facility] [id number] [place], [address] CA,Total 8.7 mg/dL Normal 8.5-10.1 [facility] Comment on above: Performed By: #### L 100.0100, L500.4050, L503.6005, M200.1000 ####[facility] [id number] [place], [place] [address] Chloride [Moles/Vol] 108 mmol/L High 98-107 [facility] Comment on above: Performed By: #### L 100.0100, L500.4050, L503.6005, M200.1000 ####[facility] [address] [place], [address] CO2 [Moles/Vol] 23.0 mmol/L Normal 21.0-32.0 [facility] Comment on above: Performed By: #### L 100.0100, L500.4050, L503.6005, M200.1000 ####[facility] [address] [place], [address] Creatinine [Mass/Vol] 1.20 mg/dL Normal 0.70-1.30 [facility] Comment on above: Result Comment: The validity of the calculated GFR GFRAA in patients over70 years has not been determined. Clinical correlation isessential. Performed By: #### L 100.0100, L500.4050, L503.6005, M200.1000 ####[facility] [address] [place], [address] ECRCL 62.20 ml/min Normal [facility] Comment on above: Performed By: #### L 100.0100, L500.4050, L503.6005, M200.1000 ####[facility] [address] [place], [address] EST GFR - AA 75 mL/min Normal >60 [facility] Comment on above: Result Comment: Afri can [place] Citizen GFR Calc Performed By: #### L 100.0100, L500.4050, L503.6005, M200.1000 ####[facility] [address] [place], [address] GAP 6 Normal 5-15 [facility] Comment on above: Performed By: #### L 100.0100, L500.4050, L503.6005, M200.1000 ####[facility] [address] [place], [address] GFR/1.73 sq M.predicted among non-blacks MDRD (S/P/Bld) [Vol rate/Area] 62 mL/min/{1.73_m2} Normal >60 [facility] Comment on above: Result Comment: Non- GFR Calc Performed By: #### L 100.0100, L500.4050, L503.6005, M200.1000 ####[facility] [address] [place], [address] Globulin (S) [Mass/Vol] 4.3 g/dL High 2.2-4.2 [facility] Comment on above: Performed By: #### L 100.0100, L500.4050, L503.6005, M200.1000 ####[facility] [address] [place], [address] Glucose [Mass/Vol] 163 mg/dL High 74-106 [facility] Comment on above: Result Comment: Fast ing Glucose result greater than or equal to 126 mg/dLsuggests DIABETES MELLITUS per A.D.A. criteria. Performed By: #### L 100.0100, L500.4050, L503.6005, M200.1000 ####[facility] [address] [place], [address] Potassium [Moles/Vol] 4.2 mmol/L Normal 3.5-5.1 [facility] Comment on above: Performed By: #### L 100.0100, L500.4050, L503.6005, M200.1000 ####[facility] [address] [place], [address] Sodium [Moles/Vol] 137 mmol/L Normal 136-145 [facility] Comment on above: Performed By: #### L 100.0100, L500.4050, L503.6005, M200.1000 ####[facility] [address] [place], [address] T PROT 7.2 g/dL Normal 6.4-8.2 [facility] Comment on above: Performed By: #### L 100.0100, L500.4050, L503.6005, M200.1000 ####[facility] [address] [place], [address] Urea nitrogen [Mass/Vol] 25 mg/dL High 7-18 [facility] Comment on above: Performed By: #### L 100.0100, L500.4050, L503.6005, M200.1000 ####[facility] [address] [place], [address] Emergency Department Summary on 03-23-2024 Emergency Department Summary Normal [facility] H AND P Exam - Hospitaliston 03-23-2024 H&P Exam - Hospitalist Normal [facility] Lactic Acidon 03-23-2024 Lactate [Moles/Vol] 2.0 mmol/L Normal 0.4-1.9 [facility] Comment on above: Result Comment: Crit ical Result(s) Called at: 18:37:25 03/23/2024 by: DIANNE. Results read back by Preeti Alvarado Performed By: #### L 503.6005 ####[facility] [address] [place], [address] Lactate [Moles/Vol] 2.6 mmol/L Invalid Interpretation Code 0.4-1.9 [facility] Comment on above: Order Comment: Y Result Comment: Crit ical Result(s) Called at: 14:05:42 03/23/2024 by:Antoinette Yang. Results read back by akshat. Performed By: #### L 100.0100, L500.4050, L503.6005, M200.1000 ####[facility] [address] [place], [address] Legionella Antigen Urineon 0 03-23-2024 LEGU Normal [facility] Comment on above: Performed By: #### M 300.4500, M300.4600 ####[facility] [address] [place], [address] Magnesiumon 03-23-2024 Magnesium [Mass/Vol] 2.5 mg/dL Normal 1.6-2.6 [facility] Comment on above: Order Comment: Comme nts: May add to ED labsComments: may add to ED labs Performed By: #### L 501.2300, L501.5200 ####[facility] [address] [place], [address] Phosphoruson 03-23-2024 Phosphate [Mass/Vol] 2.2 mg/dL Low 2.5-4.9 [facility] Comment on above: Order Comment: Comme nts: May add to ED labsComments: may add to ED labs Performed By: #### L 501.2300, L501.5200 ####[facility] [address] [place], [address] RESPIRATORY PANEL MOLECULARo n 03-23-2024 RP PANEL Normal [facility] Comment on above: Performed By: #### M 100.638 ####[facility] [address] [place], [address] Strep pneumoniae Antig(UR,CS F)on 03-23-2024 STPAG Normal [facility] Comment on above: Performed By: #### M 300.4500, M300.4600 ####[facility] [address] [place], [address] Urinalysis, Completeon 03-23 BACTERIA 1+ /hpf Normal None Seen [facility] Comment on above: Order Comment: COLLE CTOR TO SPECIFY Performed By: #### L 400.0001, M100.2200 ####[facility] [address] [place], [address] CAST,WBC 0-5 SEEN Normal None Seen [facility] Comment on above: Order Comment: COLLE CTOR TO SPECIFY Performed By: #### L 400.0001, M100.2200 ####[facility] [address] [place], [address] Mucus Ql (Urine sed) 1+ /hpf Normal [facility] Comment on above: Order Comment: COLLE CTOR TO SPECIFY Performed By: #### L 400.0001, M100.0 ####[facility] [address] [place], [address] RBC 0-5 SEEN Normal 0-5 [facility] Comment on above: Order Comment: COLLE CTOR TO SPECIFY Performed By: #### L 400.0001, M1.0 ####[facility] [address] [place], [address] WBC 50-100 SEEN Normal 0-5 [facility] Comment on above: Order Comment: SONALI CTOR TO SPECIFY Performed By: #### L 400.0001, M1.0 ####[facility] [address] [place], [address] EPI,SQUAMOUS 0 SEEN Normal 0-5 [facility] Comment on above: Order Comment: SONALI CTOR TO SPECIFY Performed By: #### L 400.0001, M1.0 ####[facility] [address] [place], [address] Basic Metabolic Profile (BMP )on 03-22-2024 BUN/CRE 23.6 RATIO High 10-20 [facility] Comment on above: Performed By: #### L 500.2500, L100.0100, M200.1000 ####[facility] [address] [place], [address] CA,Total 9.4 mg/dL Normal 8.5-10.1 [facility] Comment on above: Performed By: #### L 500.2500, L100.0100, M200.1000 ####[facility] [address] [place], [address] Chloride [Moles/Vol] 106 mmol/L Normal 98-107 [facility] Comment on above: Performed By: #### L 500.2500, L100.0100, M200.1000 ####[facility] [address] [place], [address] CO2 [Moles/Vol] 24.0 mmol/L Normal 21.0-32.0 [facility] Comment on above: Performed By: #### L 500.2500, L100.0100, M200.1000 ####[facility] [address] [place], [address] Creatinine [Mass/Vol] 1.06 mg/dL Normal 0.70-1.30 [facility] Comment on above: Result Comment: The validity of the calculated GFR GFRAA in patients over70 years has not been determined. Clinical correlation isessential. Performed By: #### L 500.2500, L100.0100, M200.1000 ####[facility] [address] [place], [address] ECRCL 70.32 ml/min Normal [facility] Comment on above: Performed By: #### L 500.2500, L100.0100, M200.1000 ####[facility] [address] [place], [address] EST GFR - AA 87 mL/min Normal >60 [facility] Comment on above: Result Comment: Afri can [place] Citizen GFR Calc Performed By: #### L 500.2500, L100.0100, M200.1000 ####[facility] [address] [place], [address] GAP 7 Normal 5-15 [facility] Comment on above: Performed By: #### L 500.2500, L100.0100, M200.1000 ####[facility] [address] [place], [address] GFR/1.73 sq M.predicted among non-blacks MDRD (S/P/Bld) [Vol rate/Area] 72 mL/min/{1.73_m2} Normal >60 [facility] Comment on above: Result Comment: Non- GFR Calc Performed By: #### L 500.2500, L100.0100, M200.1000 ####[facility] [address] [place], [address] Glucose [Mass/Vol] 118 mg/dL High 74-106 [facility] Comment on above: Result Comment: Fast ing Glucose result from 100 to 125 mg/dLsuggests IMPAIRED HOMEOSTASIS per A.D.A. criteria. Performed By: #### L 500.2500, L100.0100, M200.1000 ####[facility] [address] [place], [address] Potassium [Moles/Vol] 4.5 mmol/L Normal 3.5-5.1 [facility] Comment on above: Performed By: #### L 500.2500, L100.0100, M200.1000 ####[facility] [address] [place], [address] Sodium [Moles/Vol] 137 mmol/L Normal 136-145 [facility] Comment on above: Performed By: #### L 500.2500, L100.0100, M200.1000 ####[facility] [address] [place], [address] Urea nitrogen [Mass/Vol] 25 mg/dL High 7-18 [facility] Comment on above: Performed By: #### L 500.2500, L100.0100, M200.1000 ####[facility] [address] [place], [address] CBC W/Diff, Automatedon 01-0 8-2024 Absolute Lymph 0.43 X10 3/uL Low 0.83-4.51 [facility] Comment on above: Performed By: #### L 500.2500, L100.0100, M200.1000 ####[facility] [address] [place], [address] Absolute Neut 10.8 X10 3/uL High 2.0-7.7 [facility] Comment on above: Performed By: #### L 500.2500, L100.0100, M200.1000 ####[facility] [address] [place], [address] Basophils/100 WBC (Bld) 0.3 % Normal 0-1 [facility] Comment on above: Performed By: #### L 500.2500, L100.0100, M200.1000 ####[facility] [address] [place], [address] Eosinophils/100 WBC (Bld) 0.5 % Normal 0-5 [facility] Comment on above: Performed By: #### L 500.2500, L100.0100, M200.1000 ####[facility] [address] [place], [address] Erythrocyte distribution width (RBC) [Ratio] 15.1 % High 11.6-14.6 [facility] Comment on above: Performed By: #### L 500.2500, L100.0100, M200.1000 ####[facility] [address] [place], [address] Hematocrit (Bld) [Volume fraction] 34.1 % Low 40-54 [facility] Comment on above: Performed By: #### L 500.2500, L100.0100, M200.1000 ####[facility] [address] [place], [address] Hemoglobin (Bld) [Mass/Vol] 11.3 g/dL Low 13.0-16.5 [facility] Comment on above: Performed By: #### L 500.2500, L100.0100, M200.1000 ####[facility] [address] [place], [address] IG% 0.400 Normal 0.0-0.9 [facility] Comment on above: Result Comment: IG% - Immature Granulocytes (promyelocytes, myelocytes andmetamyelocytes) > 1% indicates that a LEFT SHIFT is Present. Performed By: #### L 500.2500, L100.0100, M200.1000 ####[facility] [address] [place], [address] Lymphocytes/100 WBC (Bld) 3.6 % Low 19-41 [facility] Comment on above: Performed By: #### L 500.2500, L100.0100, M200.1000 ####[facility] [address] [place], [address] MCH (RBC) [Entitic mass] 28.5 pg Normal 27.0-32.0 [facility] Comment on above: Performed By: #### L 500.2500, L100.0100, M200.1000 ####[facility] [address] [place], [address] MCHC (RBC) [Mass/Vol] 33.1 g/dL Normal 32-36 [facility] Comment on above: Performed By: #### L 500.2500, L100.0100, M200.1000 ####[facility] [address] [place], [address] MCV (RBC) [Entitic vol] 85.9 fL Normal 80-94 [facility] Comment on above: Performed By: #### L 500.2500, L100.0100, M200.1000 ####[facility] [address] [place], [address] Monocytes/100 WBC (Bld) 5.3 % Normal 0-10 [facility] Comment on above: Performed By: #### L 500.2500, L100.0100, M200.1000 ####[facility] [address] [place], [address] Neutrophils/100 WBC (Bld) 89.9 % High 47-70 [facility] Comment on above: Performed By: #### L 500.2500, L100.0100, M200.1000 ####[facility] [address] [place], [address] Nucleated RBC (Bld) [#/Vol] 0 10*3/uL Normal 0-5 [facility] Comment on above: Performed By: #### L 500.2500, L100.0100, M200.1000 ####[facility] [address] [place], [address] Platelet mean volume (Bld) [Entitic vol] 10.0 fL Normal 6.2-12.0 [facility] Comment on above: Performed By: #### L 500.2500, L100.0100, M200.1000 ####[facility] [address] [place], [address] Platelets (Bld) [#/Vol] 187 10*3/uL Normal 150-450 [facility] Comment on above: Performed By: #### L 500.2500, L100.0100, M200.1000 ####[facility] [address] [place], [address] RBC (Bld) [#/Vol] 3.97 10*6/uL Low 4.6-6.2 [facility] Comment on above: Performed By: #### L 500.2500, L100.0100, M200.1000 ####[facility] [address] [place], [address] RDW SD 47.1 fl High 35.1-43.9 [facility] Comment on above: Performed By: #### L 500.2500, L100.0100, M200.1000 ####[facility] [address] [place], [address] WBC (Bld) [#/Vol] 12.0 10*3/uL High 4.4-11.0 [facility] Comment on above: Performed By: #### L 500.2500, L100.0100, M200.1000 ####[facility] [address] [place], [address] COVID 19 AG RAPID (PRUDENCIO Rizo)on 03-22-2024 SARS-CoV-2 (COVID-19) RNA ALEXYS+probe Ql (Unsp spec) Normal [facility] Comment on above: Performed By: #### M 100.505 ####[facility] [address] [place], [address] Chest PA and Lateralon 03-22 Chest PA and Lateral Normal [facility] Urinalysis, Completeon 03-22 WBC >100 SEEN Normal 0-5 [facility] Comment on above: Order Comment: AILIN TER SPECIMEN Result Comment: Micr oscopic field is filled. Other elements may beobscured. Performed By: #### L 400.0001 ####[facility] [address] [place], [address] BACTERIA 0 SEEN Normal None Seen [facility] Comment on above: Order Comment: AILIN TER SPECIMEN Performed By: #### L 400.0001 ####[facility] [address] [place], [address] EPI,SQUAMOUS 0 SEEN Normal 0-5 [facility] Comment on above: Order Comment: AILIN TER SPECIMEN Performed By: #### L 400.0001 ####[facility] [address] [place], [address] Mucus Ql (Urine sed) 0 SEEN Normal [facility] Comment on above: Order Comment: AILIN TER SPECIMEN Performed By: #### L 400.0001 ####[facility] [address] [place], [address] RBC 0 SEEN Normal 0-[address] [place] [address] Comment on above: Order Comment: AILIN TER SPECIMEN Performed By: #### L 400.0001 ####[facility] [address] [place], [address] Basic Metabolic Profile (BMP )on 03-21-2024 BUN/CRE 23.9 RATIO High 10-20 [facility] Comment on above: Performed By: #### L 100.0100, L500.2500 ####[facility] [address] [place], [address] CA,Total 8.7 mg/dL Normal 8.5-10.1 [facility] Comment on above: Performed By: #### L 100.0100, L500.2500 ####[facility] [address] [place], [address] Chloride [Moles/Vol] 109 mmol/L High 98-107 [facility] Comment on above: Performed By: #### L 100.0100, L500.2500 ####[facility] [address] [place], [address] CO2 [Moles/Vol] 27.0 mmol/L Normal 21.0-32.0 [facility] Comment on above: Performed By: #### L 100.0100, L500.2500 ####[facility] [address] [place], [address] Creatinine [Mass/Vol] 0.84 mg/dL Normal 0.70-1.30 [facility] Comment on above: Result Comment: The validity of the calculated GFR GFRAA in patients over70 years has not been determined. Clinical correlation isessential. Performed By: #### L 100.0100, L500.2500 ####[facility] [address] [place], [address] ECRCL 88.30 ml/min Normal [facility] Comment on above: Performed By: #### L 100.0100, L500.2500 ####[facility] [address] [place], [address] EST GFR - AA 114 mL/min Normal >60 [facility] Comment on above: Result Comment: Afri can [place] Citizen GFR Calc Performed By: #### L 100.0100, L500.2500 ####[facility] [address] [place], [address] GAP 2 Low 5-15 [facility] Comment on above: Performed By: #### L 100.0100, L500.2500 ####[facility] [address] [place], [address] GFR/1.73 sq M.predicted among non-blacks MDRD (S/P/Bld) [Vol rate/Area] 94 mL/min/{1.73_m2} Normal >60 [facility] Comment on above: Result Comment: Non- GFR Calc Performed By: #### L 100.0100, L500.2500 ####[facility] [address] [place], [address] Glucose [Mass/Vol] 92 mg/dL Normal 74-106 [facility] Comment on above: Performed By: #### L 100.0100, L500.2500 ####[facility] [address] [place], [address] Potassium [Moles/Vol] 3.6 mmol/L Normal 3.5-5.1 [facility] Comment on above: Performed By: #### L 100.0100, L500.2500 ####[facility] [address] [place], [address] Sodium [Moles/Vol] 138 mmol/L Normal 136-145 [facility] Comment on above: Performed By: #### L 100.0100, L500.2500 ####[facility] [address] [place], [address] Urea nitrogen [Mass/Vol] 20 mg/dL High 7-18 [facility] Comment on above: Performed By: #### L 100.0100, L500.2500 ####[facility] [address] [place], [address] CBC W/Diff, Automatedon 01-0 7-2024 Absolute Lymph 0.95 X10 3/uL Normal 0.83-4.51 [facility] Comment on above: Performed By: #### L 100.0100, L500.2500 ####[facility] [address] [place], [address] Absolute Neut 5.5 X10 3/uL Normal 2.0-7.7 [facility] Comment on above: Performed By: #### L 100.0100, L500.2500 ####[facility] [address] [place], [address] Basophils/100 WBC (Bld) 0.6 % Normal 0-1 [facility] Comment on above: Performed By: #### L 100.0100, L500.2500 ####[facility] [address] [place], [address] Eosinophils/100 WBC (Bld) 2.8 % Normal 0-5 [facility] Comment on above: Performed By: #### L 100.0100, L500.2500 ####[facility] [address] [place], [address] Erythrocyte distribution width (RBC) [Ratio] 14.7 % High 11.6-14.6 [facility] Comment on above: Performed By: #### L 100.0100, L500.2500 ####[facility] [address] [place], [address] Hematocrit (Bld) [Volume fraction] 32.3 % Low 40-54 [facility] Comment on above: Performed By: #### L 100.0100, L500.2500 ####[facility] [address] [place], [address] Hemoglobin (Bld) [Mass/Vol] 10.1 g/dL Low 13.0-16.5 [facility] Comment on above: Performed By: #### L 100.0100, L500.2500 ####[facility] [address] [place], [address] IG% 0.400 Normal 0.0-0.9 [facility] Comment on above: Result Comment: IG% - Immature Granulocytes (promyelocytes, myelocytes andmetamyelocytes) > 1% indicates that a LEFT SHIFT is Present. Performed By: #### L 100.0100, L500.2500 ####[facility] [address] [place], [address] Lymphocytes/100 WBC (Bld) 13.2 % Low 19-41 [facility] Comment on above: Performed By: #### L 100.0100, L500.2500 ####[facility] [address] [place], [address] MCH (RBC) [Entitic mass] 27.4 pg Normal 27.0-32.0 [facility] Comment on above: Performed By: #### L 100.0100, L500.2500 ####[facility] [address] [place], [address] MCHC (RBC) [Mass/Vol] 31.3 g/dL Low 32-36 [facility] Comment on above: Performed By: #### L 100.0100, L500.2500 ####[facility] [address] [place], [address] MCV (RBC) [Entitic vol] 87.8 fL Normal 80-94 [facility] Comment on above: Performed By: #### L 100.0100, L500.2500 ####[facility] [address] [place], [address] Monocytes/100 WBC (Bld) 7.2 % Normal 0-10 [facility] Comment on above: Performed By: #### L 100.0100, L500.2500 ####[facility] [address] [place], [address] Neutrophils/100 WBC (Bld) 75.8 % High 47-70 [facility] Comment on above: Performed By: #### L 100.0100, L500.2500 ####[facility] [address] [place], [address] Nucleated RBC (Bld) [#/Vol] 0 10*3/uL Normal 0-5 [facility] Comment on above: Performed By: #### L 100.0100, L500.2500 ####[facility] [address] [place], [address] Platelet mean volume (Bld) [Entitic vol] 10.1 fL Normal 6.2-12.0 [facility] Comment on above: Performed By: #### L 100.0100, L500.2500 ####[facility] [address] [place], [address] Platelets (Bld) [#/Vol] 184 10*3/uL Normal 150-450 [facility] Comment on above: Performed By: #### L 100.0100, L500.2500 ####[facility] [address] [place], [address] RBC (Bld) [#/Vol] 3.68 10*6/uL Low 4.6-6.2 [facility] Comment on above: Performed By: #### L 100.0100, L500.2500 ####[facility] [address] [place], [address] RDW SD 47.8 fl High 35.1-43.9 [facility] Comment on above: Performed By: #### L 100.0100, L500.2500 ####[facility] [address] [place], [address] WBC (Bld) [#/Vol] 7.2 10*3/uL Normal 4.4-11.0 [facility] Comment on above: Performed By: #### L 100.0100, L500.2500 ####[facility] [address] [place], [address] Basic Metabolic Profile (BMP )on 03-14-2024 BUN/CRE 29.8 RATIO High 10-20 [facility] Comment on above: Performed By: #### L 100.0100, L500.2500 ####[facility] [address] [place], [address] CA,Total 8.9 mg/dL Normal 8.5-10.1 [facility] Comment on above: Performed By: #### L 100.0100, L500.2500 ####[facility] [address] [place], [address] Chloride [Moles/Vol] 109 mmol/L High 98-107 [facility] Comment on above: Performed By: #### L 100.0100, L500.2500 ####[facility] [address] [place], [address] CO2 [Moles/Vol] 25.0 mmol/L Normal 21.0-32.0 [facility] Comment on above: Performed By: #### L 100.0100, L500.2500 ####[facility] [address] [place], [address] Creatinine [Mass/Vol] 0.84 mg/dL Normal 0.70-1.30 [facility] Comment on above: Result Comment: The validity of the calculated GFR GFRAA in patients over70 years has not been determined. Clinical correlation isessential. Performed By: #### L 100.0100, L500.2500 ####[facility] [address] [place], [address] ECRCL 88.98 ml/min Normal [facility] Comment on above: Performed By: #### L 100.0100, L500.2500 ####[facility] [address] [place], [address] EST GFR - AA 114 mL/min Normal >60 [facility] Comment on above: Result Comment: Afri can [place] Citizen GFR Calc Performed By: #### L 100.0100, L500.2500 ####[facility] [address] [place], [address] GAP 4 Low 5-15 [facility] Comment on above: Performed By: #### L 100.0100, L500.2500 ####[facility] [address] [place], [address] GFR/1.73 sq M.predicted among non-blacks MDRD (S/P/Bld) [Vol rate/Area] 94 mL/min/{1.73_m2} Normal >60 [facility] Comment on above: Result Comment: Non- GFR Calc Performed By: #### L 100.0100, L500.2500 ####[facility] [address] [place], [address] Glucose [Mass/Vol] 94 mg/dL Normal 74-106 [facility] Comment on above: Performed By: #### L 100.0100, L500.2500 ####[facility] [address] [place], [address] Potassium [Moles/Vol] 3.6 mmol/L Normal 3.5-5.1 [facility] Comment on above: Performed By: #### L 100.0100, L500.2500 ####[facility] [address] [place], [address] Sodium [Moles/Vol] 138 mmol/L Normal 136-145 [facility] Comment on above: Performed By: #### L 100.0100, L500.2500 ####[facility] [address] [place], [address] Urea nitrogen [Mass/Vol] 25 mg/dL High 7-18 [facility] Comment on above: Performed By: #### L 100.0100, L500.2500 ####[facility] [address] [place], [address] CBC W/Diff, Automatedon 12-3 -2023 Absolute Lymph 1.06 X10 3/uL Normal 0.83-4.51 [facility] Comment on above: Performed By: #### L 100.0100, L500.2500 ####[facility] [address] [place], [address] Absolute Neut 5.6 X10 3/uL Normal 2.0-7.7 [facility] Comment on above: Performed By: #### L 100.0100, L500.2500 ####[facility] [address] [place], [address] Basophils/100 WBC (Bld) 0.4 % Normal 0-1 [facility] Comment on above: Performed By: #### L 100.0100, L500.2500 ####[facility] [address] [place], [address] Eosinophils/100 WBC (Bld) 3.2 % Normal 0-5 [facility] Comment on above: Performed By: #### L 100.0100, L500.2500 ####[facility] [address] [place], [address] Erythrocyte distribution width (RBC) [Ratio] 14.6 % Normal 11.6-14.6 [facility] Comment on above: Performed By: #### L 100.0100, L500.2500 ####[facility] [address] [place], [address] Hematocrit (Bld) [Volume fraction] 32.2 % Low 40-54 [facility] Comment on above: Performed By: #### L 100.0100, L500.2500 ####[facility] [address] [place], [address] Hemoglobin (Bld) [Mass/Vol] 10.2 g/dL Low 13.0-16.5 [facility] Comment on above: Performed By: #### L 100.0100, L500.2500 ####[facility] [address] [place], [address] IG% 0.300 Normal 0.0-0.9 [facility] Comment on above: Result Comment: IG% - Immature Granulocytes (promyelocytes, myelocytes andmetamyelocytes) > 1% indicates that a LEFT SHIFT is Present. Performed By: #### L 100.0100, L500.2500 ####[facility] [address] [place], [address] Lymphocytes/100 WBC (Bld) 14.1 % Low 19-41 [facility] Comment on above: Performed By: #### L 100.0100, L500.2500 ####[facility] [address] [place], [address] MCH (RBC) [Entitic mass] 27.8 pg Normal 27.0-32.0 [facility] Comment on above: Performed By: #### L 100.0100, L500.2500 ####[facility] [address] [place], [address] MCHC (RBC) [Mass/Vol] 31.7 g/dL Low 32-36 [facility] Comment on above: Performed By: #### L 100.0100, L500.2500 ####[facility] [address] [place], [address] MCV (RBC) [Entitic vol] 87.7 fL Normal 80-94 [facility] Comment on above: Performed By: #### L 100.0100, L500.2500 ####[facility] [address] [place], [address] Monocytes/100 WBC (Bld) 7.0 % Normal 0-10 [facility] Comment on above: Performed By: #### L 100.0100, L500.2500 ####[facility] [address] [place], [address] Neutrophils/100 WBC (Bld) 75.0 % High 47-70 [facility] Comment on above: Performed By: #### L 100.0100, L500.2500 ####[facility] [address] [place], [address] Nucleated RBC (Bld) [#/Vol] 0 10*3/uL Normal 0-5 [facility] Comment on above: Performed By: #### L 100.0100, L500.2500 ####[facility] [address] [place], [address] Platelet mean volume (Bld) [Entitic vol] 10.2 fL Normal 6.2-12.0 [facility] Comment on above: Performed By: #### L 100.0100, L500.2500 ####[facility] [address] [place], [address] Platelets (Bld) [#/Vol] 168 10*3/uL Normal 150-450 [facility] Comment on above: Performed By: #### L 100.0100, L500.2500 ####[facility] [address] [place], [address] RBC (Bld) [#/Vol] 3.67 10*6/uL Low 4.6-6.2 [facility] Comment on above: Performed By: #### L 100.0100, L500.2500 ####[facility] [address] [place], [address] RDW SD 47.1 fl High 35.1-43.9 [facility] Comment on above: Performed By: #### L 100.0100, L500.2500 ####[facility] [address] [place], [address] WBC (Bld) [#/Vol] 7.5 10*3/uL Normal 4.4-11.0 [facility] Comment on above: Performed By: #### L 100.0100, L500.2500 ####[facility] [address] [place], [address] Basic Metabolic Profile (BMP )on 03-07-2024 BUN/CRE 21.4 RATIO High 10-20 [facility] Comment on above: Performed By: #### L 100.0100, L500.2500 ####[facility] [address] [place], [address] CA,Total 8.8 mg/dL Normal 8.5-10.1 [facility] Comment on above: Performed By: #### L 100.0100, L500.2500 ####[facility] [address] [place], [address] Chloride [Moles/Vol] 109 mmol/L High 98-107 [facility] Comment on above: Performed By: #### L 100.0100, L500.2500 ####[facility] [address] [place], [address] CO2 [Moles/Vol] 25.0 mmol/L Normal 21.0-32.0 [facility] Comment on above: Performed By: #### L 100.0100, L500.2500 ####[facility] [address] [place], [address] Creatinine [Mass/Vol] 0.89 mg/dL Normal 0.70-1.30 [facility] Comment on above: Result Comment: The validity of the calculated GFR GFRAA in patients over70 years has not been determined. Clinical correlation isessential. Performed By: #### L 100.0100, L500.2500 ####[facility] [address] [place], [address] ECRCL 83.98 ml/min Normal [facility] Comment on above: Performed By: #### L 100.0100, L500.2500 ####[facility] [address] [place], [address] EST GFR - AA 107 mL/min Normal >60 [facility] Comment on above: Result Comment: Afri can [place] Citizen GFR Calc Performed By: #### L 100.0100, L500.2500 ####[facility] [address] [place], [address] GAP 5 Normal 5-15 [facility] Comment on above: Performed By: #### L 100.0100, L500.2500 ####[facility] [address] [place], [address] GFR/1.73 sq M.predicted among non-blacks MDRD (S/P/Bld) [Vol rate/Area] 88 mL/min/{1.73_m2} Normal >60 [facility] Comment on above: Result Comment: Non- GFR Calc Performed By: #### L 100.0100, L500.2500 ####[facility] [address] [place], [address] Glucose [Mass/Vol] 91 mg/dL Normal 74-106 [facility] Comment on above: Performed By: #### L 100.0100, L500.2500 ####[facility] [address] [place], [address] Potassium [Moles/Vol] 3.8 mmol/L Normal 3.5-5.1 [facility] Comment on above: Performed By: #### L 100.0100, L500.2500 ####[facility] [address] [place], [address] Sodium [Moles/Vol] 139 mmol/L Normal 136-145 [facility] Comment on above: Performed By: #### L 100.0100, L500.2500 ####[facility] [address] [place], [address] Urea nitrogen [Mass/Vol] 19 mg/dL High 7-18 [facility] Comment on above: Performed By: #### L 100.0100, L500.2500 ####[facility] [address] [place], [address] CBC W/Diff, Automatedon 12-2 -2023 Absolute Lymph 0.97 X10 3/uL Normal 0.83-4.51 [facility] Comment on above: Performed By: #### L 100.0100, L500.2500 ####[facility] [address] [place], [address] Absolute Neut 4.0 X10 3/uL Normal 2.0-7.7 [facility] Comment on above: Performed By: #### L 100.0100, L500.2500 ####[facility] [address] [place], [address] Basophils/100 WBC (Bld) 0.7 % Normal 0-1 [facility] Comment on above: Performed By: #### L 100.0100, L500.2500 ####[facility] [address] [place], [address] Eosinophils/100 WBC (Bld) 2.6 % Normal 0-5 [facility] Comment on above: Performed By: #### L 100.0100, L500.2500 ####[facility] [address] [place], [address] Erythrocyte distribution width (RBC) [Ratio] 14.3 % Normal 11.6-14.6 [facility] Comment on above: Performed By: #### L 100.0100, L500.2500 ####[facility] [address] [place], [address] Hematocrit (Bld) [Volume fraction] 33.3 % Low 40-54 [facility] Comment on above: Performed By: #### L 100.0100, L500.2500 ####[facility] [address] [place], [address] Hemoglobin (Bld) [Mass/Vol] 10.8 g/dL Low 13.0-16.5 [facility] Comment on above: Performed By: #### L 100.0100, L500.2500 ####[facility] [address] [place], [address] IG% 0.500 Normal 0.0-0.9 [facility] Comment on above: Result Comment: IG% - Immature Granulocytes (promyelocytes, myelocytes andmetamyelocytes) > 1% indicates that a LEFT SHIFT is Present. Performed By: #### L 100.0100, L500.2500 ####[facility] [address] [place], [address] Lymphocytes/100 WBC (Bld) 16.9 % Low 19-41 [facility] Comment on above: Performed By: #### L 100.0100, L500.2500 ####[facility] [address] [place], [address] MCH (RBC) [Entitic mass] 28.8 pg Normal 27.0-32.0 [facility] Comment on above: Performed By: #### L 100.0100, L500.2500 ####[facility] [address] [place], [address] MCHC (RBC) [Mass/Vol] 32.4 g/dL Normal 32-36 [facility] Comment on above: Performed By: #### L 100.0100, L500.2500 ####[facility] [address] [place], [address] MCV (RBC) [Entitic vol] 88.8 fL Normal 80-94 [facility] Comment on above: Performed By: #### L 100.0100, L500.2500 ####[facility] [address] [place], [address] Monocytes/100 WBC (Bld) 9.9 % Normal 0-10 [facility] Comment on above: Performed By: #### L 100.0100, L500.2500 ####[facility] [address] [place], [address] Neutrophils/100 WBC (Bld) 69.4 % Normal 47-70 [facility] Comment on above: Performed By: #### L 100.0100, L500.2500 ####[facility] [address] [place], [address] Nucleated RBC (Bld) [#/Vol] 0 10*3/uL Normal 0-5 [facility] Comment on above: Performed By: #### L 100.0100, L500.2500 ####[facility] [address] [place], [address] Platelet mean volume (Bld) [Entitic vol] 10.5 fL Normal 6.2-12.0 [facility] Comment on above: Performed By: #### L 100.0100, L500.2500 ####[facility] [address] [place], [address] Platelets (Bld) [#/Vol] 200 10*3/uL Normal 150-450 [facility] Comment on above: Performed By: #### L 100.0100, L500.2500 ####[facility] [address] [place], [address] RBC (Bld) [#/Vol] 3.75 10*6/uL Low 4.6-6.2 [facility] Comment on above: Performed By: #### L 100.0100, L500.2500 ####[facility] [address] [place], [address] RDW SD 46.1 fl High 35.1-43.9 [facility] Comment on above: Performed By: #### L 100.0100, L500.2500 ####[facility] [address] [place], [address] WBC (Bld) [#/Vol] 5.7 10*3/uL Normal 4.4-11.0 [facility] Comment on above: Performed By: #### L 100.0100, L500.2500 ####[facility] [address] [place], [address] COVID 19 AG RAPID (RN RICHY Rizo)on 03-06-2024 SARS-CoV-2 (COVID-19) RNA ALEXYS+probe Ql (Unsp spec) SARS-CoV-2 (COVID 19) Negative RAPID METHOD BinaxNow COVID19 Ag Card Normal [facility] Comment on above: Performed By: #### M 100.505 ####[facility] [address] [place], [address] Urine Cultureon 03-06-2024 URC Normal [facility] Comment on above: Performed By: #### L 400.0001, M1.2199 ####[facility] [address] [place], [address] Urinalysis, Completeon 03-03 BACTERIA 2+ /hpf Normal None Seen [facility] Comment on above: Order Comment: AILIN TER SPECIMEN Performed By: #### L 400.0001, M100.2200 ####[facility] [address] [place], [address] CAST,WBC 0-5 SEEN Normal None Seen [facility] Comment on above: Order Comment: AILIN TER SPECIMEN Performed By: #### L 400.0001, .2199 ####[facility] [address] [place], [address] Mucus Ql (Urine sed) 1+ /hpf Normal [facility] Comment on above: Order Comment: AILIN TER SPECIMEN Performed By: #### L 400.0001, .2199 ####[facility] [address] [place], [address] RBC 5-10 SEEN Normal 0-5 [facility] Comment on above: Order Comment: AILIN TER SPECIMEN Performed By: #### L 400.0001, .2199 ####[facility] [address] [place], [address] WBC 50-100 SEEN Normal 0-5 [facility] Comment on above: Order Comment: AILIN TER SPECIMEN Performed By: #### L 400.0001, ####[facility] [address] [place], [address] EPI,SQUAMOUS 0 SEEN Normal 0-5 [facility] Comment on above: Order Comment: AILIN TER SPECIMEN Performed By: #### L 400.0001, ####[facility] [address] [place], [address] Vitamin D,25 Hydroxyon 03-02 Vitamin D 25-OH 53.5 ng/mL Normal [facility] Comment on above: Result Comment: Lenore min D 25(OH) Status Range Deficiency <20 ng/mL (50nmol/L) Insufficiency 20 - 30 ng/mL (50 - 75 nmol/L) Sufficiency 30 - 100 ng/mL (75 - 250 nmol/L) Toxicity >100 ng/mL (>250 nmol/L) Performed By: #### L 506.1000 ####[facility] [address] [place], [address] Basic Metabolic Profile (BMP )on 02-29-2024 BUN/CRE 24.4 RATIO High 10-20 [facility] Comment on above: Performed By: #### L 100.0100, L500.2500 ####[facility] [address] [place], [address] CA,Total 9.0 mg/dL Normal 8.5-10.1 [facility] Comment on above: Performed By: #### L 100.0100, L500.2500 ####[facility] [address] [place], [address] Chloride [Moles/Vol] 111 mmol/L High 98-107 [facility] Comment on above: Performed By: #### L 100.0100, L500.2500 ####[facility] [address] [place], [address] CO2 [Moles/Vol] 26.0 mmol/L Normal 21.0-32.0 [facility] Comment on above: Performed By: #### L 100.0100, L500.2500 ####[facility] [address] [place], [address] Creatinine [Mass/Vol] 0.82 mg/dL Normal 0.70-1.30 [facility] Comment on above: Result Comment: The validity of the calculated GFR GFRAA in patients over70 years has not been determined. Clinical correlation isessential. Performed By: #### L 100.0100, L500.2500 ####[facility] [address] [place], [address] ECRCL 91.05 ml/min Normal [facility] Comment on above: Performed By: #### L 100.0100, L500.2500 ####[facility] [address] [place], [address] EST GFR - AA 117 mL/min Normal >60 [facility] Comment on above: Result Comment: Afri can [place] Citizen GFR Calc Performed By: #### L 100.0100, L500.2500 ####[facility] [address] [place], [address] GAP 4 Low 5-15 [facility] Comment on above: Performed By: #### L 100.0100, L500.2500 ####[facility] [address] [place], [address] GFR/1.73 sq M.predicted among non-blacks MDRD (S/P/Bld) [Vol rate/Area] 97 mL/min/{1.73_m2} Normal >60 [facility] Comment on above: Result Comment: Non- GFR Calc Performed By: #### L 100.0100, L500.2500 ####[facility] [address] [place], [address] Glucose [Mass/Vol] 90 mg/dL Normal 74-106 [facility] Comment on above: Performed By: #### L 100.0100, L500.2500 ####[facility] [address] [place], [address] Potassium [Moles/Vol] 3.9 mmol/L Normal 3.5-5.1 [facility] Comment on above: Performed By: #### L 100.0100, L500.2500 ####[facility] [address] [place], [address] Sodium [Moles/Vol] 140 mmol/L Normal 136-145 [facility] Comment on above: Performed By: #### L 100.0100, L500.2500 ####[facility] [address] [place], [address] Urea nitrogen [Mass/Vol] 20 mg/dL High 7-18 [facility] Comment on above: Performed By: #### L 100.0100, L500.2500 ####[facility] [address] [place], [address] CBC W/Diff, Automatedon 12-1 7-2024 Absolute Lymph 0.98 X10 3/uL Normal 0.83-4.51 [facility] Comment on above: Performed By: #### L 100.0100, L500.2500 ####[facility] [address] [place], [address] Absolute Neut 4.0 X10 3/uL Normal 2.0-7.7 [facility] Comment on above: Performed By: #### L 100.0100, L500.2500 ####[facility] [address] [place], [address] Basophils/100 WBC (Bld) 0.5 % Normal 0-1 [facility] Comment on above: Performed By: #### L 100.0100, L500.2500 ####[facility] [address] [place], [address] Eosinophils/100 WBC (Bld) 2.6 % Normal 0-5 [facility] Comment on above: Performed By: #### L 100.0100, L500.2500 ####[facility] [address] [place], [address] Erythrocyte distribution width (RBC) [Ratio] 14.6 % Normal 11.6-14.6 [facility] Comment on above: Performed By: #### L 100.0100, L500.2500 ####[facility] [address] [place], [address] Hematocrit (Bld) [Volume fraction] 35.0 % Low 40-54 [facility] Comment on above: Performed By: #### L 100.0100, L500.2500 ####[facility] [address] [place], [address] Hemoglobin (Bld) [Mass/Vol] 11.1 g/dL Low 13.0-16.5 [facility] Comment on above: Performed By: #### L 100.0100, L500.2500 ####[facility] [address] [place], [address] IG% 0.300 Normal 0.0-0.9 [facility] Comment on above: Result Comment: IG% - Immature Granulocytes (promyelocytes, myelocytes andmetamyelocytes) > 1% indicates that a LEFT SHIFT is Present. Performed By: #### L 100.0100, L500.2500 ####[facility] [address] [place], [address] Lymphocytes/100 WBC (Bld) 17.0 % Low 19-41 [facility] Comment on above: Performed By: #### L 100.0100, L500.2500 ####[facility] [address] [place], [address] MCH (RBC) [Entitic mass] 28.2 pg Normal 27.0-32.0 [facility] Comment on above: Performed By: #### L 100.0100, L500.2500 ####[facility] [address] [place], [address] MCHC (RBC) [Mass/Vol] 31.7 g/dL Low 32-36 [facility] Comment on above: Performed By: #### L 100.0100, L500.2500 ####[facility] [address] [place], [address] MCV (RBC) [Entitic vol] 89.1 fL Normal 80-94 [facility] Comment on above: Performed By: #### L 100.0100, L500.2500 ####[facility] [address] [place], [address] Monocytes/100 WBC (Bld) 9.2 % Normal 0-10 [facility] Comment on above: Performed By: #### L 100.0100, L500.2500 ####[facility] [address] [place], [address] Neutrophils/100 WBC (Bld) 70.4 % High 47-70 [facility] Comment on above: Performed By: #### L 100.0100, L500.2500 ####[facility] [address] [place], [address] Nucleated RBC (Bld) [#/Vol] 0 10*3/uL Normal 0-5 [facility] Comment on above: Performed By: #### L 100.0100, L500.2500 ####[facility] [address] [place], [address] Platelet mean volume (Bld) [Entitic vol] 10.0 fL Normal 6.2-12.0 [facility] Comment on above: Performed By: #### L 100.0100, L500.2500 ####[facility] [address] [place], [address] Platelets (Bld) [#/Vol] 212 10*3/uL Normal 150-450 [facility] Comment on above: Performed By: #### L 100.0100, L500.2500 ####[facility] [address] [place], [address] RBC (Bld) [#/Vol] 3.93 10*6/uL Low 4.6-6.2 [facility] Comment on above: Performed By: #### L 100.0100, L500.2500 ####[facility] [address] [place], [address] RDW SD 47.1 fl High 35.1-43.9 [facility] Comment on above: Performed By: #### L 100.0100, L500.2500 ####[facility] [address] [place], [address] WBC (Bld) [#/Vol] 5.8 10*3/uL Normal 4.4-11.0 [facility] Comment on above: Performed By: #### L 100.0100, L500.2500 ####[facility] [address] [place], [address] Basic Metabolic Profile (BMP )on 02-28-2024 BUN Normal 7-18 [facility] Comment on above: Result Comment: Canc elled via OM: MD Ordered Performed By: #### L 100.0500, L500.2500 ####[facility] [address] [place], [address] BUN/CRE Normal 10-20 [facility] Comment on above: Result Comment: Canc elled via OM: MD Ordered Performed By: #### L 100.0500, L500.2500 ####[facility] [address] [place], [address] CA,Total Normal 8.5-10.1 [facility] Comment on above: Result Comment: Canc elled via OM: MD Ordered Performed By: #### L 100.0500, L500.2500 ####[facility] [address] [place], [address] CL Normal 98-107 [facility] Comment on above: Result Comment: Canc elled via OM: MD Ordered Performed By: #### L 100.0500, L500.2500 ####[facility] [address] [place], [address] CO2 Normal 21.0-32.0 [facility] Comment on above: Result Comment: Canc elled via OM: MD Ordered Performed By: #### L 100.0500, L500.2500 ####[facility] [address] [place], [address] CREAT,SERUM Normal 0.70-1.30 [facility] Comment on above: Result Comment: Canc elled via OM: MD Ordered Performed By: #### L 100.0500, L500.2500 ####[facility] [address] [place], [place], [address] EST GFR Normal >60 [facility] Comment on above: Result Comment: Canc elled via OM: MD Ordered Performed By: #### L 100.0500, L500.2500 ####[facility] [address] [place], [address] EST GFR - AA Normal >60 [facility] Comment on above: Result Comment: Canc elled via OM: MD Ordered Performed By: #### L 100.0500, L500.2500 ####[facility] [address] [place], [address] GAP Normal 5-15 [facility] Comment on above: Result Comment: Canc elled via OM: MD Ordered Performed By: #### L 100.0500, L500.2500 ####[facility] [address] [place], [address] GLU Normal 74-106 [facility] Comment on above: Result Comment: Canc elled via OM: MD Ordered Performed By: #### L 100.0500, L500.2500 ####[facility] [address] [place], [address] Potassium Normal 3.5-5.1 [facility] Comment on above: Result Comment: Canc elled via OM: MD Ordered Performed By: #### L 100.0500, L500.2500 ####[facility] [address] [place], [address] Basic Metabolic Profile (BMP) Normal 136-145 [facility] Comment on above: Result Comment: Canc elled via OM: MD Ordered Performed By: #### L 100.0500, L500.2500 ####[facility] [address] [place], [address] CBC-Complete Blood Cnt No Di ffon 02-28-2024 HCT Normal 40-54 [facility] Comment on above: Result Comment: Canc elled via OM: MD Ordered Performed By: #### L 100.0500, L500.2500 ####[facility] [address] [place], [address] HGB Normal 13.0-16.5 [facility] Comment on above: Result Comment: Canc elled via OM: MD Ordered Performed By: #### L 100.0500, L500.2500 ####[facility] [address] [place], [address] MCH Normal 27.0-32.0 [facility] Comment on above: Result Comment: Canc elled via OM: MD Ordered Performed By: #### L 100.0500, L500.2500 ####[facility] [address] [place], [address] MCHC Normal 32-36 [facility] Comment on above: Result Comment: Canc elled via OM: MD Ordered Performed By: #### L 100.0500, L500.2500 ####[facility] [address] [place], [address] MCV Normal 80-94 [facility] Comment on above: Result Comment: Canc elled via OM: MD Ordered Performed By: #### L 100.0500, L500.2500 ####[facility] [address] [place], [address] PLT Normal 150-450 [facility] Comment on above: Result Comment: Canc elled via OM: MD Ordered Performed By: #### L 100.0500, L500.2500 ####[facility] [address] [place], [address] RBC Normal 4.6-6.2 [facility] Comment on above: Result Comment: Canc elled via OM: MD Ordered Performed By: #### L 100.0500, L500.2500 ####[facility] [address] [place], [address] RDW CV Normal 11.6-14.6 [facility] Comment on above: Result Comment: Canc elled via OM: MD Ordered Performed By: #### L 100.0500, L500.2500 ####[facility] [address] [place], [address] RDW SD Normal 35.1-43.9 [facility] Comment on above: Result Comment: Canc elled via OM: MD Ordered Performed By: #### L 100.0500, L500.2500 ####[facility] [address] [place], [address] WBC Normal 4.4-11.0 [facility] Comment on above: Result Comment: Canc elled via OM: MD Ordered Performed By: #### L 100.0500, L500.2500 ####[facility] [address] [place], [address] Culture, Blood (WB)on 2023 CUB Blood cultures x2 fr om two different sites No growth in 5 days. Normal [facility] Comment on above: Performed By: #### M 200.1000 ####[facility] [address] [place], [address] Culture, Blood (WB)on 2023 CUB Blood cultures x2, f rom two different sites No growth in 5 days. Normal [facility] Comment on above: Performed By: #### M 200.1000 ####[facility] [address] [place], [address] Basic Metabolic Profile (BMP )on 02-26-2024 BUN/CRE 22.4 RATIO High 10-20 [facility] Comment on above: Performed By: #### L 100.0100, L500.2500 ####[facility] [address] [place], [address] CA,Total 8.7 mg/dL Normal 8.5-10.1 [facility] Comment on above: Performed By: #### L 100.0100, L500.2500 ####[facility] [address] [place], [address] Chloride [Moles/Vol] 112 mmol/L High 98-107 [facility] Comment on above: Performed By: #### L 100.0100, L500.2500 ####[facility] [address] [place], [address] CO2 [Moles/Vol] 24.0 mmol/L Normal 21.0-32.0 [facility] Comment on above: Performed By: #### L 100.0100, L500.2500 ####[facility] [address] [place], [address] Creatinine [Mass/Vol] 0.85 mg/dL Normal 0.70-1.30 [facility] Comment on above: Result Comment: The validity of the calculated GFR GFRAA in patients over70 years has not been determined. Clinical correlation isessential. Performed By: #### L 100.0100, L500.2500 ####[facility] [address] [place], [address] ECRCL 89.41 ml/min Normal [facility] Comment on above: Performed By: #### L 100.0100, L500.2500 ####[facility] [address] [place], [address] EST GFR - AA 112 mL/min Normal >60 [facility] Comment on above: Result Comment: Afri can [place] Citizen GFR Calc Performed By: #### L 100.0100, L500.2500 ####[facility] [address] [place], [address] GAP 4 Low 5-15 [facility] Comment on above: Performed By: #### L 100.0100, L500.2500 ####[facility] [address] [place], [address] GFR/1.73 sq M.predicted among non-blacks MDRD (S/P/Bld) [Vol rate/Area] 93 mL/min/{1.73_m2} Normal >60 [facility] Comment on above: Result Comment: Non- GFR Calc Performed By: #### L 100.0100, L500.2500 ####[facility] [address] [place], [address] Glucose [Mass/Vol] 94 mg/dL Normal 74-106 [facility] Comment on above: Performed By: #### L 100.0100, L500.2500 ####[facility] [address] [place], [address] Potassium [Moles/Vol] 3.8 mmol/L Normal 3.5-5.1 [facility] Comment on above: Performed By: #### L 100.0100, L500.2500 ####[facility] [address] [place], [address] Sodium [Moles/Vol] 140 mmol/L Normal 136-145 [facility] Comment on above: Performed By: #### L 100.0100, L500.2500 ####[facility] [address] [place], [address] Urea nitrogen [Mass/Vol] 19 mg/dL High 7-18 [facility] Comment on above: Performed By: #### L 100.0100, L500.2500 ####[facility] [address] [place], [address] CBC W/Diff, Automatedon 02-12 Absolute Lymph 1.05 X10 3/uL Normal 0.83-4.51 [facility] Comment on above: Performed By: #### L 100.0100, L500.2500 ####[facility] [address] [place], [address] Absolute Neut 3.4 X10 3/uL Normal 2.0-7.7 [facility] Comment on above: Performed By: #### L 100.0100, L500.2500 ####[facility] [address] [place], [address] Basophils/100 WBC (Bld) 0.8 % Normal 0-1 [facility] Comment on above: Performed By: #### L 100.0100, L500.2500 ####[facility] [address] [place], [address] Eosinophils/100 WBC (Bld) 2.4 % Normal 0-5 [facility] Comment on above: Performed By: #### L 100.0100, L500.2500 ####[facility] [address] [place], [address] Erythrocyte distribution width (RBC) [Ratio] 15.0 % High 11.6-14.6 [facility] Comment on above: Performed By: #### L 100.0100, L500.2500 ####[facility] [address] [place], [address] Hematocrit (Bld) [Volume fraction] 33.6 % Low 40-54 [facility] Comment on above: Performed By: #### L 100.0100, L500.2500 ####[facility] [address] [place], [address] Hemoglobin (Bld) [Mass/Vol] 10.7 g/dL Low 13.0-16.5 [facility] Comment on above: Performed By: #### L 100.0100, L500.2500 ####[facility] [address] [place], [address] IG% 0.400 Normal 0.0-0.9 [facility] Comment on above: Result Comment: IG% - Immature Granulocytes (promyelocytes, myelocytes andmetamyelocytes) > 1% indicates that a LEFT SHIFT is Present. Performed By: #### L 100.0100, L500.2500 ####[facility] [address] [place], [address] Lymphocytes/100 WBC (Bld) 20.6 % Normal 19-41 [facility] Comment on above: Performed By: #### L 100.0100, L500.2500 ####[facility] [address] [place], [address] MCH (RBC) [Entitic mass] 28.2 pg Normal 27.0-32.0 [facility] Comment on above: Performed By: #### L 100.0100, L500.2500 ####[facility] [address] [place], [address] MCHC (RBC) [Mass/Vol] 31.8 g/dL Low 32-36 [facility] Comment on above: Performed By: #### L 100.0100, L500.2500 ####[facility] [address] [place], [address] MCV (RBC) [Entitic vol] 88.7 fL Normal 80-94 [facility] Comment on above: Performed By: #### L 100.0100, L500.2500 ####[facility] [address] [place], [address] Monocytes/100 WBC (Bld) 8.6 % Normal 0-10 [facility] Comment on above: Performed By: #### L 100.0100, L500.2500 ####[facility] [address] [place], [address] Neutrophils/100 WBC (Bld) 67.2 % Normal 47-70 [facility] Comment on above: Performed By: #### L 100.0100, L500.2500 ####[facility] [address] [place], [address] Nucleated RBC (Bld) [#/Vol] 0 10*3/uL Normal 0-5 [facility] Comment on above: Performed By: #### L 100.0100, L500.2500 ####[facility] [address] [place], [address] Platelet mean volume (Bld) [Entitic vol] 10.0 fL Normal 6.2-12.0 [facility] Comment on above: Performed By: #### L 100.0100, L500.2500 ####[facility] [address] [place], [address] Platelets (Bld) [#/Vol] 217 10*3/uL Normal 150-450 [facility] Comment on above: Performed By: #### L 100.0100, L500.2500 ####[facility] [address] [place], [address] RBC (Bld) [#/Vol] 3.79 10*6/uL Low 4.6-6.2 [facility] Comment on above: Performed By: #### L 100.0100, L500.2500 ####[facility] [address] [place], [address] RDW SD 48.3 fl High 35.1-43.9 [facility] Comment on above: Performed By: #### L 100.0100, L500.2500 ####[facility] [address] [place], [address] WBC (Bld) [#/Vol] 5.1 10*3/uL Normal 4.4-11.0 [facility] Comment on above: Performed By: #### L 100.0100, L500.2500 ####[facility] [address] [place], [address] Urine Cultureon 02-26-2024 URC Normal [facility] Comment on above: Performed By: #### M 100.2200 ####[facility] [address] [place], [address] Basic Metabolic Profile (BMP )on 02-25-2024 BUN/CRE 23.2 RATIO High 10-20 [facility] Comment on above: Performed By: #### L 100.0100, L500.2500 ####[facility] [address] [place], [address] CA,Total 9.2 mg/dL Normal 8.5-10.1 [facility] Comment on above: Performed By: #### L 100.0100, L500.2500 ####[facility] [address] [place], [address] Chloride [Moles/Vol] 114 mmol/L High 98-107 [facility] Comment on above: Performed By: #### L 100.0100, L500.2500 ####[facility] [address] [place], [address] CO2 [Moles/Vol] 22.0 mmol/L Normal 21.0-32.0 [facility] Comment on above: Performed By: #### L 100.0100, L500.2500 ####[facility] [address] [place], [address] Creatinine [Mass/Vol] 0.91 mg/dL Normal 0.70-1.30 [facility] Comment on above: Result Comment: The validity of the calculated GFR GFRAA in patients over70 years has not been determined. Clinical correlation isessential. Performed By: #### L 100.0100, L500.2500 ####[facility] [address] [place], [address] ECRCL 83.52 ml/min Normal [facility] Comment on above: Performed By: #### L 100.0100, L500.2500 ####[facility] [address] [place], [address] EST GFR - AA 104 mL/min Normal >60 [facility] Comment on above: Result Comment: Afri can [place] Citizen GFR Calc Performed By: #### L 100.0100, L500.2500 ####[facility] [address] [place], [address] GAP 5 Normal 5-15 [facility] Comment on above: Performed By: #### L 100.0100, L500.2500 ####[facility] [address] [place], [address] GFR/1.73 sq M.predicted among non-blacks MDRD (S/P/Bld) [Vol rate/Area] 86 mL/min/{1.73_m2} Normal >60 [facility] Comment on above: Result Comment: Non- GFR Calc Performed By: #### L 100.0100, L500.2500 ####[facility] [address] [place], [address] Glucose [Mass/Vol] 95 mg/dL Normal 74-106 [facility] Comment on above: Performed By: #### L 100.0100, L500.2500 ####[facility] [address] [place], [address] Potassium [Moles/Vol] 4.0 mmol/L Normal 3.5-5.1 [facility] Comment on above: Performed By: #### L 100.0100, L500.2500 ####[facility] [address] [place], [address] Sodium [Moles/Vol] 141 mmol/L Normal 136-145 [facility] Comment on above: Performed By: #### L 100.0100, L500.2500 ####[facility] [address] [place], [address] Urea nitrogen [Mass/Vol] 21 mg/dL High 7-18 [facility] Comment on above: Performed By: #### L 100.0100, L500.2500 ####[facility] [address] [place], [address] CBC W/Diff, Automatedon 12-2023 Absolute Lymph 0.97 X10 3/uL Normal 0.83-4.51 [facility] Comment on above: Performed By: #### L 100.0100, L500.2500 ####[facility] [address] [place], [address] Absolute Neut 4.3 X10 3/uL Normal 2.0-7.7 [facility] Comment on above: Performed By: #### L 100.0100, L500.2500 ####[facility] [address] [place], [address] Basophils/100 WBC (Bld) 0.9 % Normal 0-1 [facility] Comment on above: Performed By: #### L 100.0100, L500.2500 ####[facility] [address] [place], [address] Eosinophils/100 WBC (Bld) 1.7 % Normal 0-5 [facility] Comment on above: Performed By: #### L 100.0100, L500.2500 ####[facility] [address] [place], [address] Erythrocyte distribution width (RBC) [Ratio] 15.0 % High 11.6-14.6 [facility] Comment on above: Performed By: #### L 100.0100, L500.2500 ####[facility] [address] [place], [address] Hematocrit (Bld) [Volume fraction] 34.0 % Low 40-54 [facility] Comment on above: Performed By: #### L 100.0100, L500.2500 ####[facility] [address] [place], [address] Hemoglobin (Bld) [Mass/Vol] 11.0 g/dL Low 13.0-16.5 [facility] Comment on above: Performed By: #### L 100.0100, L500.2500 ####[facility] [address] [place], [address] IG% 0.500 Normal 0.0-0.9 [facility] Comment on above: Result Comment: IG% - Immature Granulocytes (promyelocytes, myelocytes andmetamyelocytes) > 1% indicates that a LEFT SHIFT is Present. Performed By: #### L 100.0100, L500.2500 ####[facility] [address] [place], [address] Lymphocytes/100 WBC (Bld) 16.6 % Low 19-41 [facility] Comment on above: Performed By: #### L 100.0100, L500.2500 ####[facility] [address] [place], [address] MCH (RBC) [Entitic mass] 28.7 pg Normal 27.0-32.0 [facility] Comment on above: Performed By: #### L 100.0100, L500.2500 ####[facility] [address] [place], [address] MCHC (RBC) [Mass/Vol] 32.4 g/dL Normal 32-36 [facility] Comment on above: Performed By: #### L 100.0100, L500.2500 ####[facility] [address] [place], [address] MCV (RBC) [Entitic vol] 88.8 fL Normal 80-94 [facility] Comment on above: Performed By: #### L 100.0100, L500.2500 ####[facility] [address] [place], [address] Monocytes/100 WBC (Bld) 6.2 % Normal 0-10 [facility] Comment on above: Performed By: #### L 100.0100, L500.2500 ####[facility] [address] [place], [address] Neutrophils/100 WBC (Bld) 74.1 % High 47-70 [facility] Comment on above: Performed By: #### L 100.0100, L500.2500 ####[facility] [address] [place], [address] Nucleated RBC (Bld) [#/Vol] 0 10*3/uL Normal 0-5 [facility] Comment on above: Performed By: #### L 100.0100, L500.2500 ####[facility] [address] [place], [address] Platelet mean volume (Bld) [Entitic vol] 9.8 fL Normal 6.2-12.0 [facility] Comment on above: Performed By: #### L 100.0100, L500.2500 ####[facility] [address] [place], [address] Platelets (Bld) [#/Vol] 208 10*3/uL Normal 150-450 [facility] Comment on above: Performed By: #### L 100.0100, L500.2500 ####[facility] [address] [place], [address] RBC (Bld) [#/Vol] 3.83 10*6/uL Low 4.6-6.2 [facility] Comment on above: Performed By: #### L 100.0100, L500.2500 ####[facility] [address] [place], [address] RDW SD 49.0 fl High 35.1-43.9 [facility] Comment on above: Performed By: #### L 100.0100, L500.2500 ####[facility] [address] [place], [address] WBC (Bld) [#/Vol] 5.8 10*3/uL Normal 4.4-11.0 [facility] Comment on above: Performed By: #### L 100.0100, L500.2500 ####[facility] [address] [place], [address] Basic Metabolic Profile (BMP )on 02-24-2024 BUN/CRE 24.9 RATIO High 10-20 [facility] Comment on above: Performed By: #### L 100.0100, L500.2500 ####[facility] [address] [place], [address] CA,Total 8.7 mg/dL Normal 8.5-10.1 [facility] Comment on above: Performed By: #### L 100.0100, L500.2500 ####[facility] [address] [place], [address] Chloride [Moles/Vol] 115 mmol/L High 98-107 [facility] Comment on above: Performed By: #### L 100.0100, L500.2500 ####[facility] [address] [place], [address] CO2 [Moles/Vol] 22.0 mmol/L Normal 21.0-32.0 [facility] Comment on above: Performed By: #### L 100.0100, L500.2500 ####[facility] [address] [place], [address] Creatinine [Mass/Vol] 0.84 mg/dL Normal 0.70-1.30 [facility] Comment on above: Result Comment: The validity of the calculated GFR GFRAA in patients over70 years has not been determined. Clinical correlation isessential. Performed By: #### L 100.0100, L500.2500 ####[facility] [address] [place], [address] ECRCL 89.85 ml/min Normal [facility] Comment on above: Performed By: #### L 100.0100, L500.2500 ####[facility] [address] [place], [address] EST GFR - AA 113 mL/min Normal >60 [facility] Comment on above: Result Comment: Afri can [place] Citizen GFR Calc Performed By: #### L 100.0100, L500.2500 ####[facility] [address] [place], [address] GAP 4 Low 5-15 [facility] Comment on above: Performed By: #### L 100.0100, L500.2500 ####[facility] [address] [place], [address] GFR/1.73 sq M.predicted among non-blacks MDRD (S/P/Bld) [Vol rate/Area] 94 mL/min/{1.73_m2} Normal >60 [facility] Comment on above: Result Comment: Non- GFR Calc Performed By: #### L 100.0100, L500.2500 ####[facility] [address] [place], [address] Glucose [Mass/Vol] 104 mg/dL Normal 74-106 [facility] Comment on above: Result Comment: Fast ing Glucose result from 100 to 125 mg/dLsuggests IMPAIRED HOMEOSTASIS per A.D.A. criteria. Performed By: #### L 100.0100, L500.2500 ####[facility] [address] [place], [address] Potassium [Moles/Vol] 3.7 mmol/L Normal 3.5-5.1 [facility] Comment on above: Performed By: #### L 100.0100, L500.2500 ####[facility] [address] [place], [address] Sodium [Moles/Vol] 141 mmol/L Normal 136-145 [facility] Comment on above: Performed By: #### L 100.0100, L500.2500 ####[facility] [address] [place], [address] Urea nitrogen [Mass/Vol] 21 mg/dL High 7-18 [facility] Comment on above: Performed By: #### L 100.0100, L500.2500 ####[facility] [address] [place], [address] CBC W/Diff, Automatedon 12- 2-2023 Absolute Lymph 1.01 X10 3/uL Normal 0.83-4.51 [facility] Comment on above: Performed By: #### L 100.0100, L500.2500 ####[facility] [address] [place], [address] Absolute Neut 3.9 X10 3/uL Normal 2.0-7.7 [facility] Comment on above: Performed By: #### L 100.0100, L500.2500 ####[facility] [address] [place], [address] Basophils/100 WBC (Bld) 0.7 % Normal 0-1 [facility] Comment on above: Performed By: #### L 100.0100, L500.2500 ####[facility] [address] [place], [address] Eosinophils/100 WBC (Bld) 2.0 % Normal 0-5 [facility] Comment on above: Performed By: #### L 100.0100, L500.2500 ####[facility] [address] [place], [address] Erythrocyte distribution width (RBC) [Ratio] 15.1 % High 11.6-14.6 [facility] Comment on above: Performed By: #### L 100.0100, L500.2500 ####[facility] [address] [place], [address] Hematocrit (Bld) [Volume fraction] 34.1 % Low 40-54 [facility] Comment on above: Performed By: #### L 100.0100, L500.2500 ####[facility] [address] [place], [address] Hemoglobin (Bld) [Mass/Vol] 10.9 g/dL Low 13.0-16.5 [facility] Comment on above: Performed By: #### L 100.0100, L500.2500 ####[facility] [address] [place], [address] IG% 0.600 Normal 0.0-0.9 [facility] Comment on above: Result Comment: IG% - Immature Granulocytes (promyelocytes, myelocytes andmetamyelocytes) > 1% indicates that a LEFT SHIFT is Present. Performed By: #### L 100.0100, L500.2500 ####[facility] [address] [place], [address] Lymphocytes/100 WBC (Bld) 18.5 % Low 19-41 [facility] Comment on above: Performed By: #### L 100.0100, L500.2500 ####[facility] [address] [place], [address] MCH (RBC) [Entitic mass] 28.8 pg Normal 27.0-32.0 [facility] Comment on above: Performed By: #### L 100.0100, L500.2500 ####[facility] [address] [place], [address] MCHC (RBC) [Mass/Vol] 32.0 g/dL Normal 32-36 [facility] Comment on above: Performed By: #### L 100.0100, L500.2500 ####[facility] [address] [place], [address] MCV (RBC) [Entitic vol] 90.0 fL Normal 80-94 [facility] Comment on above: Performed By: #### L 100.0100, L500.2500 ####[facility] [address] [place], [address] Monocytes/100 WBC (Bld) 6.4 % Normal 0-10 [facility] Comment on above: Performed By: #### L 100.0100, L500.2500 ####[facility] [address] [place], [address] Neutrophils/100 WBC (Bld) 71.8 % High 47-70 [facility] Comment on above: Performed By: #### L 100.0100, L500.2500 ####[facility] [address] [place], [address] Nucleated RBC (Bld) [#/Vol] 0 10*3/uL Normal 0-5 [facility] Comment on above: Performed By: #### L 100.0100, L500.2500 ####[facility] [address] [place], [address] Platelet mean volume (Bld) [Entitic vol] 9.7 fL Normal 6.2-12.0 [facility] Comment on above: Performed By: #### L 100.0100, L500.2500 ####[facility] [address] [place], [address] Platelets (Bld) [#/Vol] 202 10*3/uL Normal 150-450 [facility] Comment on above: Performed By: #### L 100.0100, L500.2500 ####[facility] [address] [place], [address] RBC (Bld) [#/Vol] 3.79 10*6/uL Low 4.6-6.2 [facility] Comment on above: Performed By: #### L 100.0100, L500.2500 ####[facility] [address] [place], [address] RDW SD 49.6 fl High 35.1-43.9 [facility] Comment on above: Performed By: #### L 100.0100, L500.2500 ####[facility] [address] [place], [address] WBC (Bld) [#/Vol] 5.5 10*3/uL Normal 4.4-11.0 [facility] Comment on above: Performed By: #### L 100.0100, L500.2500 ####[facility] [address] [place], [address] CBC W/Diff, Automatedon 12 Absolute Lymph 0.98 X10 3/uL Normal 0.83-4.51 [facility] Comment on above: Performed By: #### L 100.0100, L500.4050 ####[facility] [address] [place], [address] Absolute Neut 4.4 X10 3/uL Normal 2.0-7.7 [facility] Comment on above: Performed By: #### L 100.0100, L500.4050 ####[facility] [address] [place], [address] Basophils/100 WBC (Bld) 0.7 % Normal 0-1 [facility] Comment on above: Performed By: #### L 100.0100, L500.4050 ####[facility] [address] [place], [address] Eosinophils/100 WBC (Bld) 1.5 % Normal 0-5 [facility] Comment on above: Performed By: #### L 100.0100, L500.4050 ####[facility] [address] [place], [address] Erythrocyte distribution width (RBC) [Ratio] 14.7 % High 11.6-14.6 [facility] Comment on above: Performed By: #### L 100.0100, L500.4050 ####[facility] [address] [place], [address] Hematocrit (Bld) [Volume fraction] 33.4 % Low 40-54 [facility] Comment on above: Performed By: #### L 100.0100, L500.4050 ####[facility] [address] [place], [address] Hemoglobin (Bld) [Mass/Vol] 10.8 g/dL Low 13.0-16.5 [facility] Comment on above: Performed By: #### L 100.0100, L500.4050 ####[facility] [address] [place], [address] IG% 1.000 High 0.0-0.9 [facility] Comment on above: Result Comment: IG% - Immature Granulocytes (promyelocytes, myelocytes andmetamyelocytes) > 1% indicates that a LEFT SHIFT is Present. Performed By: #### L 100.0100, L500.4050 ####[facility] [address] [place], [address] Lymphocytes/100 WBC (Bld) 16.4 % Low 19-41 [facility] Comment on above: Performed By: #### L 100.0100, L500.4050 ####[facility] [address] [place], [address] MCH (RBC) [Entitic mass] 28.6 pg Normal 27.0-32.0 [facility] Comment on above: Performed By: #### L 100.0100, L500.4050 ####[facility] [address] [place], [address] MCHC (RBC) [Mass/Vol] 32.3 g/dL Normal 32-36 [facility] Comment on above: Performed By: #### L 100.0100, L500.4050 ####[facility] [address] [place], [address] MCV (RBC) [Entitic vol] 88.6 fL Normal 80-94 [facility] Comment on above: Performed By: #### L 100.0100, L500.4050 ####[facility] [address] [place], [address] Monocytes/100 WBC (Bld) 6.9 % Normal 0-10 [facility] Comment on above: Performed By: #### L 100.0100, L500.4050 ####[facility] [address] [place], [address] Neutrophils/100 WBC (Bld) 73.5 % High 47-70 [facility] Comment on above: Performed By: #### L 100.0100, L500.4050 ####[facility] [address] [place], [address] Nucleated RBC (Bld) [#/Vol] 0 10*3/uL Normal 0-5 [facility] Comment on above: Performed By: #### L 100.0100, L500.4050 ####[facility] [address] [place], [address] Platelet mean volume (Bld) [Entitic vol] 9.9 fL Normal 6.2-12.0 [facility] Comment on above: Performed By: #### L 100.0100, L500.4050 ####[facility] [address] [place], [address] Platelets (Bld) [#/Vol] 209 10*3/uL Normal 150-450 [facility] Comment on above: Performed By: #### L 100.0100, L500.4050 ####[facility] [address] [place], [address] RBC (Bld) [#/Vol] 3.77 10*6/uL Low 4.6-6.2 [facility] Comment on above: Performed By: #### L 100.0100, L500.4050 ####[facility] [address] [place], [address] RDW SD 47.8 fl High 35.1-43.9 [facility] Comment on above: Performed By: #### L 100.0100, L500.4050 ####[facility] [address] [place], [address] WBC (Bld) [#/Vol] 6.0 10*3/uL Normal 4.4-11.0 [facility] Comment on above: Performed By: #### L 100.0100, L500.4050 ####[facility] [address] [place], [address] CRPon 02-23-2024 C-REACTIVE PROT 95.80 mg/L High 0.0-3.0 [facility] Comment on above: Order Comment: Comme nts: May add to ED labs Result Comment: C-Re active Protein (CRP) provides useful information for thediagnosis, therapy and monitoring of inflammatory processesand associated diseases. For the evaluation of Relative Riskfor Cardiovascular Disease, a High Sensitivity CRP (HSCRP)should be ordered. Performed By: #### L 101.9900, L501.6710 ####[facility] [address] [place], [address] Comprehensive Metabolic Prof ilon 02-23-2024 Albumin [Mass/Vol] 2.9 g/dL Low 3.2-5.0 [facility] Comment on above: Performed By: #### L 100.0100, L500.4050 ####[facility] [address] [place], [address] Albumin/Globulin [Mass ratio] 0.8 {ratio} Low 0.9-2.4 [facility] Comment on above: Performed By: #### L 100.0100, L500.4050 ####[facility] [address] [place], [address] ALK P 48 U/L Normal 45-117 [facility] Comment on above: Performed By: #### L 100.0100, L500.4050 ####[facility] [address] [place], [address] ALT [Catalytic activity/Vol] 31 U/L Normal 16-61 [facility] Comment on above: Performed By: #### L 100.0100, L500.4050 ####[facility] [address] [place], [address] AST [Catalytic activity/Vol] 20 U/L Normal 15-37 [facility] Comment on above: Performed By: #### L 100.0100, L500.4050 ####[facility] [address] [place], [address] Bilirubin [Mass/Vol] 0.90 mg/dL Normal 0.20-1.00 [facility] Comment on above: Result Comment: For patients on eltrombopag therapy, use of Dimension [place] TBIL is not recommended. Performed By: #### L 100.0100, L500.4050 ####[facility] [address] [place], [address] BUN/CRE 19.7 RATIO Normal 10-20 [facility] Comment on above: Performed By: #### L 100.0100, L500.4050 ####[facility] [address] [place], [address] CA,Total 8.6 mg/dL Normal 8.5-10.1 [facility] Comment on above: Performed By: #### L 100.0100, L500.4050 ####[facility] [address] [place], [address] Chloride [Moles/Vol] 114 mmol/L High 98-107 [facility] Comment on above: Performed By: #### L 100.0100, L500.4050 ####[facility] [address] [place], [address] CO2 [Moles/Vol] 23.0 mmol/L Normal 21.0-32.0 [facility] Comment on above: Performed By: #### L 100.0100, L500.4050 ####[facility] [address] [place], [address] Creatinine [Mass/Vol] 0.81 mg/dL Normal 0.70-1.30 [facility] Comment on above: Result Comment: The validity of the calculated GFR GFRAA in patients over70 years has not been determined. Clinical correlation isessential. Performed By: #### L 100.0100, L500.4050 ####[facility] [address] [place], [address] ECRCL 92.86 ml/min Normal [facility] Comment on above: Performed By: #### L 100.0100, L500.4050 ####[facility] [address] [place], [address] EST GFR - AA 118 mL/min Normal >60 [facility] Comment on above: Result Comment: Afri can [place] Citizen GFR Calc Performed By: #### L 100.0100, L500.4050 ####[facility] [address] [place], [address] GAP 5 Normal 5-15 [facility] Comment on above: Performed By: #### L 100.0100, L500.4050 ####[facility] [address] [place], [address] GFR/1.73 sq M.predicted among non-blacks MDRD (S/P/Bld) [Vol rate/Area] 98 mL/min/{1.73_m2} Normal >60 [facility] Comment on above: Result Comment: Non- GFR Calc Performed By: #### L 100.0100, L500.4050 ####[facility] [address] [place], [address] Globulin (S) [Mass/Vol] 3.8 g/dL Normal 2.2-4.2 [facility] Comment on above: Performed By: #### L 100.0100, L500.4050 ####[facility] [address] [place], [address] Glucose [Mass/Vol] 96 mg/dL Normal 74-106 [facility] Comment on above: Performed By: #### L 100.0100, L500.4050 ####[facility] [address] [place], [address] Potassium [Moles/Vol] 3.3 mmol/L Low 3.5-5.1 [facility] Comment on above: Performed By: #### L 100.0100, L500.4050 ####[facility] [address] [place], [address] Sodium [Moles/Vol] 142 mmol/L Normal 136-145 [facility] Comment on above: Performed By: #### L 100.0100, L500.4050 ####[facility] [address] [place], [address] T PROT 6.7 g/dL Normal 6.4-8.2 [facility] Comment on above: Performed By: #### L 100.0100, L500.4050 ####[facility] [address] [place], [address] Urea nitrogen [Mass/Vol] 16 mg/dL Normal 7-18 [facility] Comment on above: Performed By: #### L 100.0100, L500.4050 ####[facility] [address] [place], [address] Consultation - Infectious Dx on 02-23-2024 Consultation - Infectious Dx Normal [facility] Erythrocyte Sed Rateon 02-22 SED RATE 45 mm/hr High 0-20 [facility] Comment on above: Performed By: #### L 101.9900, L501.6710 ####[facility] [address] [place], [address] RESPIRATORY PANEL MOLECULARo n 02-23-2024 RP PANEL Normal [facility] Comment on above: Performed By: #### M 100.638 ####[facility] [address] [place], [address] Basic Metabolic Profile (BMP )on 02-22-2024 BUN/CRE 17.8 RATIO Normal 01-01 [facility] Comment on above: Performed By: #### L 100.0100, L500.2500, L503.6005 ####[facility] [address] [place], [address] CA,Total 8.9 mg/dL Normal 8.5-10.1 [facility] Comment on above: Performed By: #### L 100.0100, L500.2500, L503.6005 ####[facility] [address] [place], [address] Chloride [Moles/Vol] 112 mmol/L High 98-107 [facility] Comment on above: Performed By: #### L 100.0100, L500.2500, L503.6005 ####[facility] [address] [place], [address] CO2 [Moles/Vol] 23.0 mmol/L Normal 21.0-32.0 [facility] Comment on above: Performed By: #### L 100.0100, L500.2500, L503.6005 ####[facility] [address] [place], [address] Creatinine [Mass/Vol] 0.90 mg/dL Normal 0.70-1.30 [facility] Comment on above: Result Comment: The validity of the calculated GFR GFRAA in patients over70 years has not been determined. Clinical correlation isessential. Performed By: #### L 100.0100, L500.2500, L503.6005 ####[facility] [address] [place], [address] ECRCL 86.00 ml/min Normal [facility] Comment on above: Performed By: #### L 100.0100, L500.2500, L503.6005 ####[facility] [address] [place], [address] EST GFR - AA 105 mL/min Normal >60 [facility] Comment on above: Result Comment: Afri can [place] GFR Calc Performed By: #### L 100.0100, L500.2500, L503.6005 ####[facility] [address] [place], [address] GAP 4 Low 5-15 [facility] Comment on above: Performed By: #### L 100.0100, L500.2500, L503.6005 ####[facility] [address] [place], [address] GFR/1.73 sq M.predicted among non-blacks MDRD (S/P/Bld) [Vol rate/Area] 87 mL/min/{1.73_m2} Normal >60 [facility] Comment on above: Result Comment: Non- GFR Calc Performed By: #### L 100.0100, L500.2500, L503.6005 ####[facility] [address] [place], [address] Glucose [Mass/Vol] 125 mg/dL High 74-106 [facility] Comment on above: Result Comment: Fast ing Glucose result from 100 to 125 mg/dLsuggests IMPAIRED HOMEOSTASIS per A.D.A. criteria. Performed By: #### L 100.0100, L500.2500, L503.6005 ####[facility] [address] [place], [address] Potassium [Moles/Vol] 3.9 mmol/L Normal 3.5-5.1 [facility] Comment on above: Performed By: #### L 100.0100, L500.2500, L503.6005 ####[facility] [address] [place], [address] Sodium [Moles/Vol] 138 mmol/L Normal 136-145 [facility] Comment on above: Performed By: #### L 100.0100, L500.2500, L503.6005 ####[facility] [address] [place], [address] Urea nitrogen [Mass/Vol] 16 mg/dL Normal 7-18 [facility] Comment on above: Performed By: #### L 100.0100, L500.2500, L503.6005 ####[facility] [address] [place], [address] CBC W/Diff, Automatedon 12-1 0-4 Absolute Lymph 0.92 X10 3/uL Normal 0.83-4.51 [facility] Comment on above: Performed By: #### L 100.0100, L500.2500, L503.6005 ####[facility] [address] [place], [address] Absolute Neut 6.1 X10 3/uL Normal 2.0-7.7 [facility] Comment on above: Performed By: #### L 100.0100, L500.2500, L503.6005 ####[facility] [address] [place], [address] Basophils/100 WBC (Bld) 0.4 % Normal 0-1 [facility] Comment on above: Performed By: #### L 100.0100, L500.2500, L503.6005 ####[facility] [address] [place], [address] Eosinophils/100 WBC (Bld) 0.9 % Normal 0-5 [facility] Comment on above: Performed By: #### L 100.0100, L500.2500, L503.6005 ####[facility] [address] [place], [address] Erythrocyte distribution width (RBC) [Ratio] 14.8 % High 11.6-14.6 [facility] Comment on above: Performed By: #### L 100.0100, L500.2500, L503.6005 ####[facility] [address] [place], [address] Hematocrit (Bld) [Volume fraction] 36.4 % Low 40-54 [facility] Comment on above: Performed By: #### L 100.0100, L500.2500, L503.6005 ####[facility] [address] [place], [address] Hemoglobin (Bld) [Mass/Vol] 11.4 g/dL Low 13.0-16.5 [facility] Comment on above: Performed By: #### L 100.0100, L500.2500, L503.6005 ####[facility] [address] [place], [address] IG% 0.400 Normal 0.0-0.9 [facility] Comment on above: Result Comment: IG% - Immature Granulocytes (promyelocytes, myelocytes andmetamyelocytes) > 1% indicates that a LEFT SHIFT is Present. Performed By: #### L 100.0100, L500.2500, L503.6005 ####[facility] [address] [place], [address] Lymphocytes/100 WBC (Bld) 11.9 % Low 19-41 [facility] Comment on above: Performed By: #### L 100.0100, L500.2500, L503.6005 ####[facility] [address] [place], [address] MCH (RBC) [Entitic mass] 28.4 pg Normal 27.0-32.0 [facility] Comment on above: Performed By: #### L 100.0100, L500.2500, L503.6005 ####[facility] [address] [place], [address] MCHC (RBC) [Mass/Vol] 31.3 g/dL Low 32-36 [facility] Comment on above: Performed By: #### L 100.0100, L500.2500, L503.6005 ####[facility] [address] [place], [address] MCV (RBC) [Entitic vol] 90.8 fL Normal 80-94 [facility] Comment on above: Performed By: #### L 100.0100, L500.2500, L503.6005 ####[facility] [address] [place], [address] Monocytes/100 WBC (Bld) 7.8 % Normal 0-10 [facility] Comment on above: Performed By: #### L 100.0100, L500.2500, L503.6005 ####[facility] [address] [place], [address] Neutrophils/100 WBC (Bld) 78.6 % High 47-70 [facility] Comment on above: Performed By: #### L 100.0100, L500.2500, L503.6005 ####[facility] [address] [place], [address] Nucleated RBC (Bld) [#/Vol] 0 10*3/uL Normal 0-5 [facility] Comment on above: Performed By: #### L 100.0100, L500.2500, L503.6005 ####[facility] [address] [place], [address] Platelet mean volume (Bld) [Entitic vol] 10.9 fL Normal 6.2-12.0 [facility] Comment on above: Performed By: #### L 100.0100, L500.2500, L503.6005 ####[facility] [address] [place], [address] Platelets (Bld) [#/Vol] 223 10*3/uL Normal 150-450 [facility] Comment on above: Performed By: #### L 100.0100, L500.2500, L503.6005 ####[facility] [address] [place], [address] RBC (Bld) [#/Vol] 4.01 10*6/uL Low 4.6-6.2 [facility] Comment on above: Performed By: #### L 100.0100, L500.2500, L503.6005 ####[facility] [address] [place], [address] RDW SD 49.7 fl High 35.1-43.9 [facility] Comment on above: Performed By: #### L 100.0100, L500.2500, L503.6005 ####[facility] [address] [place], [address] WBC (Bld) [#/Vol] 7.7 10*3/uL Normal 4.4-11.0 [facility] Comment on above: Performed By: #### L 100.0100, L500.2500, L503.6005 ####[facility] [address] [place], [address] Emergency Department Summary on 02-22-2024 Emergency Department Summary Normal [facility] H AND P Exam - Hospitaliston 02-22-2024 H&P Exam - Hospitalist Normal [facility] Lactic Acidon 02-22-2024 Lactate [Moles/Vol] 0.9 mmol/L Normal 0.4-1.9 [facility] Comment on above: Order Comment: Y Performed By: #### L 100.0100, L500.2500, L503.6005 ####[facility] [address] [place], [address] Magnesiumon 02-22-2024 Magnesium [Mass/Vol] 2.4 mg/dL Normal 1.6-2.6 [facility] Comment on above: Order Comment: Comme nts: May add to ED labsComments: may add to ED labs Performed By: #### L 509.7000, L501.2300, L501.5200 ####[facility] [address] [place], [address] Phosphoruson 02-22-2024 Phosphate [Mass/Vol] 2.5 mg/dL Normal 2.5-4.9 [facility] Comment on above: Order Comment: Comme nts: May add to ED labsComments: may add to ED labs Performed By: #### L 509.7000, L501.2300, L501.5200 ####[facility] [address] [place], [address] Procalcitoninon 02-22-2024 Procalcitonin 0.48 ng/mL High 0.00-0.09 [facility] Comment on above: Result Comment: A pr [...] Performed By: #### L 509.7000, L501.2300, L501.5200 ####[facility] [address] [place], [address] CBC W/Diff, Automatedon 12-0 9-2024 Absolute Lymph 0.83 X10 3/uL Normal 0.83-4.51 [facility] Comment on above: Performed By: #### L 100.0100, L500.4050, L503.6005 ####[facility] [address] [place], [address] Absolute Neut 7.5 X10 3/uL Normal 2.0-7.7 [facility] Comment on above: Performed By: #### L 100.0100, L500.4050, L503.6005 ####[facility] [address] [place], [address] Basophils/100 WBC (Bld) 0.4 % Normal 0-1 [facility] Comment on above: Performed By: #### L 100.0100, L500.4050, L503.6005 ####[facility] [address] [place], [address] Eosinophils/100 WBC (Bld) 1.0 % Normal 0-5 [facility] Comment on above: Performed By: #### L 100.0100, L500.4050, L503.6005 ####[facility] [address] [place], [address] Erythrocyte distribution width (RBC) [Ratio] 14.8 % High 11.6-14.6 [facility] Comment on above: Performed By: #### L 100.0100, L500.4050, L503.6005 ####[facility] [address] [place], [address] Hematocrit (Bld) [Volume fraction] 34.8 % Low 40-54 [facility] Comment on above: Performed By: #### L 100.0100, L500.4050, L503.6005 ####[facility] [address] [place], [address] Hemoglobin (Bld) [Mass/Vol] 11.5 g/dL Low 13.0-16.5 [facility] Comment on above: Performed By: #### L 100.0100, L500.4050, L503.6005 ####[facility] [address] [place], [address] IG% 0.700 Normal 0.0-0.9 [facility] Comment on above: Result Comment: IG% - Immature Granulocytes (promyelocytes, myelocytes andmetamyelocytes) > 1% indicates that a LEFT SHIFT is Present. Performed By: #### L 100.0100, L500.4050, L503.6005 ####[facility] [address] [place], [address] Lymphocytes/100 WBC (Bld) 9.1 % Low 19-41 [facility] Comment on above: Performed By: #### L 100.0100, L500.4050, L503.6005 ####[facility] [address] [place], [address] MCH (RBC) [Entitic mass] 29.5 pg Normal 27.0-32.0 [facility] Comment on above: Performed By: #### L 100.0100, L500.4050, L503.6005 ####[facility] [address] [place], [address] MCHC (RBC) [Mass/Vol] 33.0 g/dL Normal 32-36 [facility] Comment on above: Performed By: #### L 100.0100, L500.4050, L503.6005 ####[facility] [address] [place], [address] MCV (RBC) [Entitic vol] 89.2 fL Normal 80-94 [facility] Comment on above: Performed By: #### L 100.0100, L500.4050, L503.6005 ####[facility] [address] [place], [address] Monocytes/100 WBC (Bld) 7.2 % Normal 0-10 [facility] Comment on above: Performed By: #### L 100.0100, L500.4050, L503.6005 ####[facility] [address] [place], [address] Neutrophils/100 WBC (Bld) 81.6 % High 47-70 [facility] Comment on above: Performed By: #### L 100.0100, L500.4050, L503.6005 ####[facility] [address] [place], [address] Nucleated RBC (Bld) [#/Vol] 0 10*3/uL Normal 0-5 [facility] Comment on above: Performed By: #### L 100.0100, L500.4050, L503.6005 ####[facility] [address] [place], [address] Platelet mean volume (Bld) [Entitic vol] 10.5 fL Normal 6.2-12.0 [facility] Comment on above: Performed By: #### L 100.0100, L500.4050, L503.6005 ####[facility] [address] [place], [address] Platelets (Bld) [#/Vol] 177 10*3/uL Normal 150-450 [facility] Comment on above: Performed By: #### L 100.0100, L500.4050, L503.6005 ####[facility] [address] [place], [address] RBC (Bld) [#/Vol] 3.90 10*6/uL Low 4.6-6.2 [facility] Comment on above: Performed By: #### L 100.0100, L500.4050, L503.6005 ####[facility] [address] [place], [address] RDW SD 47.8 fl High 35.1-43.9 [facility] Comment on above: Performed By: #### L 100.0100, L500.4050, L503.6005 ####[facility] [address] [place], [address] WBC (Bld) [#/Vol] 9.2 10*3/uL Normal 4.4-11.0 [facility] Comment on above: Performed By: #### L 100.0100, L500.4050, L503.6005 ####[facility] [address] [place], [address] Chest 1 View (Portable)on Chest 1 View (Portable) Normal [facility] Comprehensive Metabolic Prof ilon 02-21-2024 Albumin [Mass/Vol] 2.9 g/dL Low 3.2-5.0 [facility] Comment on above: Performed By: #### L 100.0100, L500.4050, L503.6005 ####[facility] [address] [place], [address] Albumin/Globulin [Mass ratio] 0.7 {ratio} Low 0.9-2.4 [facility] Comment on above: Performed By: #### L 100.0100, L500.4050, L503.6005 ####[facility] [address] [place], [address] ALK P 52 U/L Normal 45-117 [facility] Comment on above: Performed By: #### L 100.0100, L500.4050, L503.6005 ####[facility] [address] [place], [address] ALT [Catalytic activity/Vol] 30 U/L Normal 16-61 [facility] Comment on above: Performed By: #### L 100.0100, L500.4050, L503.6005 ####[facility] [address] [place], [address] AST [Catalytic activity/Vol] 27 U/L Normal 15-37 [facility] Comment on above: Performed By: #### L 100.0100, L500.4050, L503.6005 ####[facility] [address] [place], [address] Bilirubin [Mass/Vol] 0.70 mg/dL Normal 0.20-1.00 [facility] Comment on above: Result Comment: For patients on eltrombopag therapy, use of Dimension [place] TBIL is not recommended. Performed By: #### L 100.0100, L500.4050, L503.6005 ####[facility] [address] [place], [address] BUN/CRE 15.1 RATIO Normal 10-20 [facility] Comment on above: Performed By: #### L 100.0100, L500.4050, L503.6005 ####[facility] [address] [place], [address] CA,Total 8.5 mg/dL Normal 8.5-10.1 [facility] Comment on above: Performed By: #### L 100.0100, L500.4050, L503.6005 ####[facility] [address] [place], [address] Chloride [Moles/Vol] 113 mmol/L High 98-107 [facility] Comment on above: Performed By: #### L 100.0100, L500.4050, L503.6005 ####[facility] [address] [place], [address] CO2 [Moles/Vol] 25.0 mmol/L Normal 21.0-32.0 [facility] Comment on above: Performed By: #### L 100.0100, L500.4050, L503.6005 ####[facility] [address] [place], [address] Creatinine [Mass/Vol] 0.93 mg/dL Normal 0.70-1.30 [facility] Comment on above: Result Comment: The validity of the calculated GFR GFRAA in patients over70 years has not been determined. Clinical correlation isessential. Performed By: #### L 100.0100, L500.4050, L503.6005 ####[facility] [address] [place], [address] EST GFR - AA 101 mL/min Normal >60 [facility] Comment on above: Result Comment: Afri can [place] Citizen GFR Calc Performed By: #### L 100.0100, L500.4050, L503.6005 ####[facility] [address] [place], [address] GAP 4 Low 5-15 [facility] Comment on above: Performed By: #### L 100.0100, L500.4050, L503.6005 ####[facility] [address] [place], [address] GFR/1.73 sq M.predicted among non-blacks MDRD (S/P/Bld) [Vol rate/Area] 84 mL/min/{1.73_m2} Normal >60 [facility] Comment on above: Result Comment: Non- GFR Calc Performed By: #### L 100.0100, L500.4050, L503.6005 ####[facility] [address] [place], [address] Globulin (S) [Mass/Vol] 4.1 g/dL Normal 2.2-4.2 [facility] Comment on above: Performed By: #### L 100.0100, L500.4050, L503.6005 ####[facility] [address] [place], [address] Glucose [Mass/Vol] 101 mg/dL Normal 74-106 [facility] Comment on above: Result Comment: Fast ing Glucose result from 100 to 125 mg/dLsuggests IMPAIRED HOMEOSTASIS per A.D.A. criteria. Performed By: #### L 100.0100, L500.4050, L503.6005 ####[facility] [address] [place], [address] Potassium [Moles/Vol] 3.7 mmol/L Normal 3.5-5.1 [facility] Comment on above: Performed By: #### L 100.0100, L500.4050, L503.6005 ####[facility] [address] [place], [address] Sodium [Moles/Vol] 142 mmol/L Normal 136-145 [facility] Comment on above: Performed By: #### L 100.0100, L500.4050, L503.6005 ####[facility] [address] [place], [address] T PROT 7.0 g/dL Normal 6.4-8.2 [facility] Comment on above: Performed By: #### L 100.0100, L500.4050, L503.6005 ####[facility] [address] [place], [address] Urea nitrogen [Mass/Vol] 14 mg/dL Normal 7-18 [facility] Comment on above: Performed By: #### L 100.0100, L500.4050, L503.6005 ####[facility] [address] [place], [address] Emergency Department Summary on 02-21-2024 Emergency Department Summary Normal [facility] Lactic Acidon 02-21-2024 Lactate [Moles/Vol] 1.4 mmol/L Normal 0.4-1.9 [facility] Comment on above: Order Comment: Y Performed By: #### L 100.0100, L500.4050, L503.6005 ####[facility] [address] [place], [address] M100.678on 02-21-2024 M100.678 Pending SARS-CoV-2 (COVID 19) Negative INFLUENZA A Negative INFLUENZA B Negative RSV PCR Negative Normal [facility] Comment on above: Performed By: #### M 100.678 ####[facility] [address] [place], [address] Urinalysis, Completeon 02-20 BACTERIA RARE Normal None Seen [facility] Comment on above: Order Comment: COLOR OF URINE MAY AFFECT DIPSTICK RESULTS.WELDING PANTOGRAPH MACHINE OPERATOR TO SPECIFY Performed By: #### L 400.0001 ####[facility] [address] [place], [address] CAST,HYALINE 0-5 SEEN Normal 0-5 [facility] Comment on above: Order Comment: COLOR OF URINE MAY AFFECT DIPSTICK RESULTS.WELDING PANTOGRAPH MACHINE OPERATOR TO SPECIFY Performed By: #### L 400.0001 ####[facility] [address] [place], [address] EPI,RENAL 0-5 SEEN Normal 0-5 [facility] Comment on above: Order Comment: COLOR OF URINE MAY AFFECT DIPSTICK RESULTS.WELDING PANTOGRAPH MACHINE OPERATOR TO SPECIFY Performed By: #### L 400.0001 ####[facility] [address] [place], [address] EPI,TRANSITION 0-5 SEEN Normal 0-5 [facility] Comment on above: Order Comment: COLOR OF URINE MAY AFFECT DIPSTICK RESULTS.WELDING PANTOGRAPH MACHINE OPERATOR TO SPECIFY Performed By: #### L 400.0001 ####[facility] [address] [place], [address] Mucus Ql (Urine sed) 1+ /hpf Normal [facility] Comment on above: Order Comment: COLOR OF URINE MAY AFFECT DIPSTICK RESULTS.WELDING PANTOGRAPH MACHINE OPERATOR TO SPECIFY Performed By: #### L 400.0001 ####[facility] [address] [place], [address] EPI,SQUAMOUS 0-5 SEEN Normal 0-5 [facility] Comment on above: Order Comment: COLOR OF URINE MAY AFFECT DIPSTICK RESULTS.WELDING PANTOGRAPH MACHINE OPERATOR TO SPECIFY Performed By: #### L 400.0001 ####[facility] [address] [place], [address] RBC 0-5 SEEN Normal 0-5 [facility] Comment on above: Order Comment: COLOR OF URINE MAY AFFECT DIPSTICK RESULTS.WELDING PANTOGRAPH MACHINE OPERATOR TO SPECIFY Performed By: #### L 400.0001 ####[facility] [address] [place], [address] WBC 10-25 SEEN Normal 0-5 [facility] Comment on above: Order Comment: COLOR OF URINE MAY AFFECT DIPSTICK RESULTS.WELDING PANTOGRAPH MACHINE OPERATOR TO SPECIFY Performed By: #### L 400.0001 ####[facility] [address] [place], [address] Urine Cultureon 02-18-2024 URC Normal [facility] Comment on above: Performed By: #### M 100.2200 ####[facility] [address] [place], [address] Discharge Instructionon Discharge Instruction Normal [facility] Basic Metabolic Profile (BMP )on 02-16-2024 BUN/CRE 16.2 RATIO Normal 10-20 [facility] Comment on above: Performed By: #### L 500.2500 ####[facility] [address] [place], [address] CA,Total 8.5 mg/dL Normal 8.5-10.1 [facility] Comment on above: Performed By: #### L 500.2500 ####[facility] [address] [place], [address] Chloride [Moles/Vol] 112 mmol/L High 98-107 [facility] Comment on above: Performed By: #### L 500.2500 ####[facility] [address] [place], [address] CO2 [Moles/Vol] 21.0 mmol/L Normal 21.0-32.0 [facility] Comment on above: Performed By: #### L 500.2500 ####[facility] [address] [place], [address] Creatinine [Mass/Vol] 1.30 mg/dL Normal 0.70-1.30 [facility] Comment on above: Result Comment: The validity of the calculated GFR GFRAA in patients over70 years has not been determined. Clinical correlation isessential. Performed By: #### L 500.2500 ####[facility] [address] [place], [address] ECRCL 58.01 ml/min Normal [facility] Comment on above: Performed By: #### L 500.2500 ####[facility] [address] [place], [address] EST GFR - AA 69 mL/min Normal >60 [facility] Comment on above: Result Comment: Afri can [place] Citizen GFR Calc Performed By: #### L 500.2500 ####[facility] [address] [place], [address] GAP 8 Normal 5-15 [facility] Comment on above: Performed By: #### L 500.2500 ####[facility] [address] [place], [address] GFR/1.73 sq M.predicted among non-blacks MDRD (S/P/Bld) [Vol rate/Area] 57 mL/min/{1.73_m2} Low >60 [facility] Comment on above: Result Comment: Non- GFR Calc Performed By: #### L 500.2500 ####[facility] [address] [place], [address] Glucose [Mass/Vol] 147 mg/dL High 74-106 [facility] Comment on above: Result Comment: Fast ing Glucose result greater than or equal to 126 mg/dLsuggests DIABETES MELLITUS per A.D.A. criteria. Performed By: #### L 500.2500 ####[facility] [address] [place], [address] Potassium [Moles/Vol] 3.4 mmol/L Low 3.5-5.1 [facility] Comment on above: Performed By: #### L 500.2500 ####[facility] [address] [place], [address] Sodium [Moles/Vol] 140 mmol/L Normal 136-145 [facility] Comment on above: Performed By: #### L 500.2500 ####[facility] [address] [place], [address] Urea nitrogen [Mass/Vol] 21 mg/dL High 7-18 [facility] Comment on above: Performed By: #### L 500.2500 ####[facility] [address] [place], [address] Culture, Blood (WB)on 2023 CUB Blood cultures x2, f rom two different sites No growth in 5 days. Normal [facility] Comment on above: Performed By: #### M 200.1000, L100.0100, L500.2500, L501.4020, L503.6005 ####[facility] [address] [place], [address] Performed By: #### M 200.1000 ####[facility] [address] [place], [address] Basic Metabolic Profile (BMP )on 02-15-2024 BUN/CRE 18.4 RATIO Normal 10-20 [facility] Comment on above: Performed By: #### L 100.0100, L500.2500 ####[facility] [address] [place], [address] CA,Total 8.5 mg/dL Normal 8.5-10.1 [facility] Comment on above: Performed By: #### L 100.0100, L500.2500 ####[facility] [address] [place], [address] Chloride [Moles/Vol] 112 mmol/L High 98-107 [facility] Comment on above: Performed By: #### L 100.0100, L500.2500 ####[facility] [address] [place], [address] CO2 [Moles/Vol] 26.0 mmol/L Normal 21.0-32.0 [facility] Comment on above: Performed By: #### L 100.0100, L500.2500 ####[facility] [address] [place], [address] Creatinine [Mass/Vol] 1.36 mg/dL High 0.70-1.30 [facility] Comment on above: Result Comment: The validity of the calculated GFR GFRAA in patients over70 years has not been determined. Clinical correlation isessential. Performed By: #### L 100.0100, L500.2500 ####[facility] [address] [place], [address] ECRCL 55.45 ml/min Normal [facility] Comment on above: Performed By: #### L 100.0100, L500.2500 ####[facility] [address] [place], [address] EST GFR - AA 65 mL/min Normal >60 [facility] Comment on above: Result Comment: Afri can [place] Citizen GFR Calc Performed By: #### L 100.0100, L500.2500 ####[facility] [address] [place], [address] GAP 3 Low 5-15 [facility] Comment on above: Performed By: #### L 100.0100, L500.2500 ####[facility] [address] [place], [address] GFR/1.73 sq M.predicted among non-blacks MDRD (S/P/Bld) [Vol rate/Area] 54 mL/min/{1.73_m2} Low >60 [facility] Comment on above: Result Comment: Non- GFR Calc Performed By: #### L 100.0100, L500.2500 ####[facility] [address] [place], [address] Glucose [Mass/Vol] 108 mg/dL High 74-106 [facility] Comment on above: Result Comment: Fast ing Glucose result from 100 to 125 mg/dLsuggests IMPAIRED HOMEOSTASIS per A.D.A. criteria. Performed By: #### L 100.0100, L500.2500 ####[facility] [address] [place], [address] Potassium [Moles/Vol] 3.5 mmol/L Normal 3.5-5.1 [facility] Comment on above: Performed By: #### L 100.0100, L500.2500 ####[facility] [address] [place], [address] Sodium [Moles/Vol] 140 mmol/L Normal 136-145 [facility] Comment on above: Performed By: #### L 100.0100, L500.2500 ####[facility] [address] [place], [address] Urea nitrogen [Mass/Vol] 25 mg/dL High 7-18 [facility] Comment on above: Performed By: #### L 100.0100, L500.2500 ####[facility] [address] [place], [address] CBC W/Diff, Automatedon 12-0 3-2024 Absolute Lymph 0.86 X10 3/uL Normal 0.83-4.51 [facility] Comment on above: Performed By: #### L 100.0100, L500.2500 ####[facility] [address] [place], [address] Absolute Neut 8.9 X10 3/uL High 2.0-7.7 [facility] Comment on above: Performed By: #### L 100.0100, L500.2500 ####[facility] [address] [place], [address] Basophils/100 WBC (Bld) 0.4 % Normal 0-1 [facility] Comment on above: Performed By: #### L 100.0100, L500.2500 ####[facility] [address] [place], [address] Eosinophils/100 WBC (Bld) 0.9 % Normal 0-5 [facility] Comment on above: Performed By: #### L 100.0100, L500.2500 ####[facility] [address] [place], [address] Erythrocyte distribution width (RBC) [Ratio] 15.2 % High 11.6-14.6 [facility] Comment on above: Performed By: #### L 100.0100, L500.2500 ####[facility] [address] [place], [address] Hematocrit (Bld) [Volume fraction] 32.8 % Low 40-54 [facility] Comment on above: Performed By: #### L 100.0100, L500.2500 ####[facility] [address] [place], [address] Hemoglobin (Bld) [Mass/Vol] 10.3 g/dL Low 13.0-16.5 [facility] Comment on above: Performed By: #### L 100.0100, L500.2500 ####[facility] [address] [place], [address] IG% 0.800 Normal 0.0-0.9 [facility] Comment on above: Result Comment: IG% - Immature Granulocytes (promyelocytes, myelocytes andmetamyelocytes) > 1% indicates that a LEFT SHIFT is Present. Performed By: #### L 100.0100, L500.2500 ####[facility] [address] [place], [address] Lymphocytes/100 WBC (Bld) 8.1 % Low 19-41 [facility] Comment on above: Performed By: #### L 100.0100, L500.2500 ####[facility] [address] [place], [address] MCH (RBC) [Entitic mass] 28.5 pg Normal 27.0-32.0 [facility] Comment on above: Performed By: #### L 100.0100, L500.2500 ####[facility] [address] [place], [address] MCHC (RBC) [Mass/Vol] 31.4 g/dL Low 32-36 [facility] Comment on above: Performed By: #### L 100.0100, L500.2500 ####[facility] [address] [place], [address] MCV (RBC) [Entitic vol] 90.9 fL Normal 80-94 [facility] Comment on above: Performed By: #### L 100.0100, L500.2500 ####[facility] [address] [place], [address] Monocytes/100 WBC (Bld) 5.9 % Normal 0-10 [facility] Comment on above: Performed By: #### L 100.0100, L500.2500 ####[facility] [address] [place], [address] Neutrophils/100 WBC (Bld) 83.9 % High 47-70 [facility] Comment on above: Performed By: #### L 100.0100, L500.2500 ####[facility] [address] [place], [address] Nucleated RBC (Bld) [#/Vol] 0 10*3/uL Normal 0-5 [facility] Comment on above: Performed By: #### L 100.0100, L500.2500 ####[facility] [address] [place], [address] Platelet mean volume (Bld) [Entitic vol] 10.8 fL Normal 6.2-12.0 [facility] Comment on above: Performed By: #### L 100.0100, L500.2500 ####[facility] [address] [place], [address] Platelets (Bld) [#/Vol] 116 10*3/uL Low 150-450 [facility] Comment on above: Performed By: #### L 100.0100, L500.2500 ####[facility] [address] [place], [address] RBC (Bld) [#/Vol] 3.61 10*6/uL Low 4.6-6.2 [facility] Comment on above: Performed By: #### L 100.0100, L500.2500 ####[facility] [address] [place], [address] RDW SD 50.5 fl High 35.1-43.9 [facility] Comment on above: Performed By: #### L 100.0100, L500.2500 ####[facility] [address] [place], [address] WBC (Bld) [#/Vol] 10.6 10*3/uL Normal 4.4-11.0 [facility] Comment on above: Performed By: #### L 100.0100, L500.2500 ####[facility] [address] [place], [address] Urinalysis, Completeon 02-14 BACTERIA RARE Normal None Seen [facility] Comment on above: Order Comment: CLEAN CATCH Performed By: #### L 400.0001 ####[facility] [address] [place], [address] RBC 10-25 SEEN Normal 0-5 [facility] Comment on above: Order Comment: CLEAN CATCH Performed By: #### L 400.0001 ####[facility] [address] [place], [address] WBC 50-100 SEEN Normal 0-5 [facility] Comment on above: Order Comment: CLEAN CATCH Performed By: #### L 400.0001 ####[facility] [address] [place], [address] EPI,SQUAMOUS 0 SEEN Normal 0-5 [facility] Comment on above: Order Comment: CLEAN CATCH Performed By: #### L 400.0001 ####[facility] [address] [place], [address] Mucus Ql (Urine sed) 0 SEEN Normal [facility] Comment on above: Order Comment: CLEAN CATCH Performed By: #### L 400.0001 ####[facility] [address] [place], [address] Vancomycin, Trough Levelon 1 04-17-2023 VANCO, TROUGH 15.9 ug/mL High 5.0-15.0 [facility] Comment on above: Order Comment: PT IS IN MRI, PRUDENCIO MOCTEZUMADUPLICATOR PUNCH OPERATOR WILL CALL LAB ONCE THE PATIENTIS BACK IN HIS ROOMComments: Trough to be drawn 30 mins prior to scheduled [id number] Result Comment: VANC OMYCIN STANDARED DRUG THERAPY TROUGH LEVEL: 5.0 - 15.0 mg/LVANCOMYCIN HIGH INTENSITY THERAPY TROUGH LEVEL: 15.0 - 20.0 mg/LHigh Intensity therapy recommended for serious lifethreatening infections include:- Tgemmyfjxg-Qvotidxlkiaw-Wicqbksfn (Ventilator/Healtcare Associated)-SepsisPLEASE CONTACT PHARMACY SERVICES (#5200) FOR INTERPRETATIONOF RESULTS. Performed By: #### L 501.8819 ####[facility] [address] [place], [address] Abdomen/Pelvis W IV Cont ONL Yon 02-14-2024 Abdomen/Pelvis W IV Cont ONLY Normal [facility] Basic Metabolic Profile (BMP )on 02-14-2024 BUN/CRE 20.3 RATIO High 10-20 [facility] Comment on above: Performed By: #### L 500.2500, L100.0100 ####[facility] [address] [place], [address] CA,Total 8.8 mg/dL Normal 8.5-10.1 [facility] Comment on above: Performed By: #### L 500.2500, L100.0100 ####[facility] [address] [place], [address] Chloride [Moles/Vol] 112 mmol/L High 98-107 [facility] Comment on above: Performed By: #### L 500.2500, L100.0100 ####[facility] [address] [place], [address] CO2 [Moles/Vol] 22.0 mmol/L Normal 21.0-32.0 [facility] Comment on above: Performed By: #### L 500.2500, L100.0100 ####[facility] [address] [place], [address] Creatinine [Mass/Vol] 1.33 mg/dL High 0.70-1.30 [facility] Comment on above: Result Comment: The validity of the calculated GFR GFRAA in patients over70 years has not been determined. Clinical correlation isessential. Performed By: #### L 500.2500, L100.0100 ####[facility] [address] [place], [address] ECRCL 56.70 ml/min Normal [facility] Comment on above: Performed By: #### L 500.2500, L100.0100 ####[facility] [address] [place], [address] EST GFR - AA 67 mL/min Normal >60 [facility] Comment on above: Result Comment: Afri can [place] Citizen GFR Calc Performed By: #### L 500.2500, L100.0100 ####[facility] [address] [place], [address] GAP 8 Normal 5-15 [facility] Comment on above: Performed By: #### L 500.2500, L100.0100 ####[facility] [address] [place], [address] GFR/1.73 sq M.predicted among non-blacks MDRD (S/P/Bld) [Vol rate/Area] 55 mL/min/{1.73_m2} Low >60 [facility] Comment on above: Result Comment: Non- GFR Calc Performed By: #### L 500.2500, L100.0100 ####[facility] [address] [place], [address] Glucose [Mass/Vol] 155 mg/dL High 74-106 [facility] Comment on above: Result Comment: Fast ing Glucose result greater than or equal to 126 mg/dLsuggests DIABETES MELLITUS per A.D.A. criteria. Performed By: #### L 500.2500, L100.0100 ####[facility] [address] [place], [address] Potassium [Moles/Vol] 3.5 mmol/L Normal 3.5-5.1 [facility] Comment on above: Performed By: #### L 500.2500, L100.0100 ####[facility] [address] [place], [address] Sodium [Moles/Vol] 142 mmol/L Normal 136-145 [facility] Comment on above: Performed By: #### L 500.2500, L100.0100 ####[facility] [address] [place], [address] Urea nitrogen [Mass/Vol] 27 mg/dL High 7-18 [facility] Comment on above: Performed By: #### L 500.2500, L100.0100 ####[facility] [address] [place], [address] CBC W/Diff, Automatedon Absolute Lymph 0.00 X10 3/uL Low 0.83-4.51 [facility] Comment on above: Performed By: #### L 500.2500, L100.0100 ####[facility] [address] [place], [address] Absolute Neut 17.7 X10 3/uL High 2.0-7.7 [facility] Comment on above: Performed By: #### L 500.2500, L100.0100 ####[facility] [address] [place], [address] Chest 1 View (Portable)on Chest 1 View (Portable) Normal [facility] Consultation - Infectious Dx on 02-14-2024 Consultation - Infectious Dx Normal [facility] Lactic Acidon 02-14-2024 Lactate [Moles/Vol] 2.6 mmol/L Invalid Interpretation Code 0.4-1.9 [facility] Comment on above: Result Comment: Crit ical Result(s) Called at: 04:54:17 02/14/2024 by:Arabella guthrie. Results read back by same. Performed By: #### L 503.6005 ####[facility] [address] [place], [address] Lactate [Moles/Vol] 2.1 mmol/L Invalid Interpretation Code 0.4-1.9 [facility] Comment on above: Order Comment: Y Result Comment: Crit ical Result(s) Called at: 00:06:32 02/14/2024 by:Arabella GUTHRIE. Results read back by same. Performed By: #### L 100.0500, L500.2500, L503.6005 ####[facility] [address] [place], [address] MRI Abd WITH and W/O Contras ton 02-14-2024 MRI Abd WITH and W/O Contrast Normal [facility] 12 Lead EKGon 02-13-2024 12 Lead EKG Normal [facility] Basic Metabolic Profile (BMP )on 02-13-2024 BUN/CRE 21.6 RATIO High 10-20 [facility] Comment on above: Performed By: #### L 100.0500, L500.2500, L503.6005 ####[facility] [address] [facility] [address] CA,Total 8.8 mg/dL Normal 8.5-10.1 [facility] Comment on above: Performed By: #### L 100.0500, L500.2500, L503.6005 ####[facility] [address] [place], [address] Chloride [Moles/Vol] 112 mmol/L High 98-107 [facility] Comment on above: Performed By: #### L 100.0500, L500.2500, L503.6005 ####[facility] [address] [place], [address] CO2 [Moles/Vol] 23.0 mmol/L Normal 21.0-32.0 [facility] Comment on above: Performed By: #### L 100.0500, L500.2500, L503.6005 ####[facility] [address] [place], [address] Creatinine [Mass/Vol] 1.25 mg/dL Normal 0.70-1.30 [facility] Comment on above: Result Comment: The validity of the calculated GFR GFRAA in patients over70 years has not been determined. Clinical correlation isessential. Performed By: #### L 100.0500, L500.2500, L503.6005 ####[facility] [address] [place], [address] ECRCL 60.33 ml/min Normal [facility] Comment on above: Performed By: #### L 100.0500, L500.2500, L503.6005 ####[facility] [address] [place], [address] EST GFR - AA 72 mL/min Normal >60 [facility] Comment on above: Result Comment: Afri can [place] Citizen GFR Calc Performed By: #### L 100.0500, L500.2500, L503.6005 ####[facility] [address] [place], [address] GAP 8 Normal 5-15 [facility] Comment on above: Performed By: #### L 100.0500, L500.2500, L503.6005 ####[facility] [address] [place], [address] GFR/1.73 sq M.predicted among non-blacks MDRD (S/P/Bld) [Vol rate/Area] 59 mL/min/{1.73_m2} Low >60 [facility] Comment on above: Result Comment: Non- GFR Calc Performed By: #### L 100.0500, L500.2500, L503.6005 ####[facility] [address] [place], [address] Glucose [Mass/Vol] 156 mg/dL High 74-106 [facility] Comment on above: Result Comment: Fast ing Glucose result greater than or equal to 126 mg/dLsuggests DIABETES MELLITUS per A.D.A. criteria. Performed By: #### L 100.0500, L500.2500, L503.6005 ####[facility] [address] [place], [address] Potassium [Moles/Vol] 3.1 mmol/L Low 3.5-5.1 [facility] Comment on above: Performed By: #### L 100.0500, L500.2500, L503.6005 ####[facility] [address] [place], [address] Sodium [Moles/Vol] 143 mmol/L Normal 136-145 [facility] Comment on above: Performed By: #### L 100.0500, L500.2500, L503.6005 ####[facility] [address] [place], [address] Urea nitrogen [Mass/Vol] 27 mg/dL High 7-18 [facility] Comment on above: Performed By: #### L 100.0500, L500.2500, L503.6005 ####[facility] [address] [place], [address] BUN/CRE 21.1 RATIO High 10-20 [facility] Comment on above: Performed By: #### L 500.2500, L100.0100 ####[facility] [address] [place], [address] CA,Total 8.5 mg/dL Normal 8.5-10.1 [facility] Comment on above: Performed By: #### L 500.2500, L100.0100 ####[facility] [address] [place], [address] Chloride [Moles/Vol] 110 mmol/L High 98-107 [facility] Comment on above: Performed By: #### L 500.2500, L100.0100 ####[facility] [address] [place], [address] CO2 [Moles/Vol] 23.0 mmol/L Normal 21.0-32.0 [facility] Comment on above: Performed By: #### L 500.2500, L100.0100 ####[facility] [address] [place], [address] Creatinine [Mass/Vol] 1.00 mg/dL Normal 0.70-1.30 [facility] Comment on above: Result Comment: The validity of the calculated GFR GFRAA in patients over70 years has not been determined. Clinical correlation isessential. Performed By: #### L 500.2500, L100.0100 ####[facility] [address] [place], [address] ECRCL 75.41 ml/min Normal [facility] Comment on above: Performed By: #### L 500.2500, L100.0100 ####[facility] [address] [place], [address] EST GFR - AA 93 mL/min Normal >60 [facility] Comment on above: Result Comment: Afri can [place] Citizen GFR Calc Performed By: #### L 500.2500, L100.0100 ####[facility] [address] [place], [address] GAP 9 Normal 5-15 [facility] Comment on above: Performed By: #### L 500.2500, L100.0100 ####[facility] [address] [place], [address] GFR/1.73 sq M.predicted among non-blacks MDRD (S/P/Bld) [Vol rate/Area] 77 mL/min/{1.73_m2} Normal >60 [facility] Comment on above: Result Comment: Non- GFR Calc Performed By: #### L 500.2500, L100.0100 ####[facility] [address] [place], [address] Glucose [Mass/Vol] 91 mg/dL Normal 74-106 [facility] Comment on above: Performed By: #### L 500.2500, L100.0100 ####[facility] [address] [place], [address] Potassium [Moles/Vol] 2.9 mmol/L Low 3.5-5.1 [facility] Comment on above: Performed By: #### L 500.2500, L100.0100 ####[facility] [address] [place], [address] Sodium [Moles/Vol] 142 mmol/L Normal 136-145 [facility] Comment on above: Performed By: #### L 500.2500, L100.0100 ####[facility] [address] [place], [address] Urea nitrogen [Mass/Vol] 21 mg/dL High 7-18 [facility] Comment on above: Performed By: #### L 500.2500, L100.0100 ####[facility] [address] [place], [address] Bedside Glucoseon 02-13-2024 FINGERSTICK GLU 129 mg/dL High 74-106 [facility] Comment on above: Result Comment: NETO XIE OF PATIENT CARE PER NURSING PROTOCOL Performed By: #### L 501.080 ####[facility] [address] [place], [address] Blood Gases by [facility] 024 DIANA TEST Positive Normal [facility] Comment on above: Performed By: #### L 9000.0800 ####[facility] [address] [place], [address] Base excess Calc (Bld) [Moles/Vol] -4 mmol/L Low -2 to +2 [facility] Comment on above: Performed By: #### L 9000.0800 ####[facility] [address] [place], [address] Blood Gas Type ART Normal [facility] Comment on above: Performed By: #### L 9000.0800 ####[facility] [address] [place], [address] CO2 [Moles/Vol] 20 mmol/L Normal [facility] Comment on above: Performed By: #### L 9000.0800 ####[facility] [address] [place], [address] FI02 2.0 Normal [facility] Comment on above: Performed By: #### L 9000.0800 ####[facility] [address] [place], [address] HCO3 (Bld) [Moles/Vol] 19.6 mmol/L Low 22-26 [facility] Comment on above: Performed By: #### L 9000.0800 ####[facility] [address] [place], [address] Mode Not entered Normal [facility] Comment on above: Performed By: #### L 9000.0800 ####[facility] [address] [place], [address] O2 Delivery Dev Cannula Normal [facility] Comment on above: Performed By: #### L 0.0800 ####[facility] [address] [place], [address] pCO2 25.9 mmHg Low 35-45 [facility] Comment on above: Performed By: #### L 9000.0800 ####[facility] [address] [place], [address] pH (Bld) 7.49 [pH] High 7.35-7.45 [facility] Comment on above: Performed By: #### L 9000.0800 ####[facility] [address] [place], [address] PO2 85 mmHG Normal 75-100 [facility] Comment on above: Performed By: #### L 9000.0800 ####[facility] [address] [place], [address] SITE R Radial Normal [facility] Comment on above: Performed By: #### L 9000.0800 ####[facility] [address] [place], [address] SO2 97 Normal 95-99 [facility] Comment on above: Performed By: #### L 9000.0800 ####[facility] [address] [place], [address] Brain/Head without Contrasto n 02-13-2024 Brain/Head without Contrast Normal [facility] CBC W/Diff, Automatedon 12-0 Absolute Lymph 1.09 X10 3/uL Normal 0.83-4.51 [facility] Comment on above: Performed By: #### L 500.2500, L100.0100 ####[facility] [address] [place], [address] Absolute Neut 3.9 X10 3/uL Normal 2.0-7.7 [facility] Comment on above: Performed By: #### L 500.2500, L100.0100 ####[facility] [address] [place], [address] Basophils/100 WBC (Bld) 0.5 % Normal 0-1 [facility] Comment on above: Performed By: #### L 500.2500, L100.0100 ####[facility] [address] [place], [address] Eosinophils/100 WBC (Bld) 2.6 % Normal 0-5 [facility] Comment on above: Performed By: #### L 500.2500, L100.0100 ####[facility] [address] [place], [address] Erythrocyte distribution width (RBC) [Ratio] 14.4 % Normal 11.6-14.6 [facility] Comment on above: Performed By: #### L 500.2500, L100.0100 ####[facility] [address] [place], [address] Hematocrit (Bld) [Volume fraction] 35.4 % Low 40-54 [facility] Comment on above: Performed By: #### L 500.2500, L100.0100 ####[facility] [address] [place], [address] Hemoglobin (Bld) [Mass/Vol] 11.6 g/dL Low 13.0-16.5 [facility] Comment on above: Performed By: #### L 500.2500, L100.0100 ####[facility] [address] [place], [address] IG% 0.300 Normal 0.0-0.9 [facility] Comment on above: Result Comment: IG% - Immature Granulocytes (promyelocytes, myelocytes andmetamyelocytes) > 1% indicates that a LEFT SHIFT is Present. Performed By: #### L 500.2500, L100.0100 ####[facility] [address] [place], [address] Lymphocytes/100 WBC (Bld) 18.7 % Low 19-41 [facility] Comment on above: Performed By: #### L 500.2500, L100.0100 ####[facility] [address] [place], [address] MCH (RBC) [Entitic mass] 29.1 pg Normal 27.0-32.0 [facility] Comment on above: Performed By: #### L 500.2500, L100.0100 ####[facility] [address] [place], [address] MCHC (RBC) [Mass/Vol] 32.8 g/dL Normal 32-36 [facility] Comment on above: Performed By: #### L 500.2500, L100.0100 ####[facility] [address] [place], [address] MCV (RBC) [Entitic vol] 88.7 fL Normal 80-94 [facility] Comment on above: Performed By: #### L 500.2500, L100.0100 ####[facility] [address] [place], [address] Monocytes/100 WBC (Bld) 11.0 % High 0-10 [facility] Comment on above: Performed By: #### L 500.2500, L100.0100 ####[facility] [address] [place], [address] Neutrophils/100 WBC (Bld) 66.9 % Normal 47-70 [facility] Comment on above: Performed By: #### L 500.2500, L100.0100 ####[facility] [address] [place], [address] Nucleated RBC (Bld) [#/Vol] 0 10*3/uL Normal 0-5 [facility] Comment on above: Performed By: #### L 500.2500, L100.0100 ####[facility] [address] [place], [address] Platelet mean volume (Bld) [Entitic vol] 11.0 fL Normal 6.2-12.0 [facility] Comment on above: Performed By: #### L 500.2500, L100.0100 ####[facility] [address] [place], [address] Platelets (Bld) [#/Vol] 149 10*3/uL Low 150-450 [facility] Comment on above: Performed By: #### L 500.2500, L100.0100 ####[facility] [address] [place], [address] RBC (Bld) [#/Vol] 3.99 10*6/uL Low 4.6-6.2 [facility] Comment on above: Performed By: #### L 500.2500, L100.0100 ####[facility] [address] [place], [address] RDW SD 46.3 fl High 35.1-43.9 [facility] Comment on above: Performed By: #### L 500.2500, L100.0100 ####[facility] [address] [place], [address] WBC (Bld) [#/Vol] 5.8 10*3/uL Normal 4.4-11.0 [facility] Comment on above: Performed By: #### L 500.2500, L100.0100 ####[facility] [address] [place], [address] CBC-Complete Blood Cnt No Di ffon 02-13-2024 Erythrocyte distribution width (RBC) [Ratio] 14.3 % Normal 11.6-14.6 [facility] Comment on above: Performed By: #### L 100.0500, L500.2500, L503.6005 ####[facility] [address] [place], [address] Hematocrit (Bld) [Volume fraction] 36.0 % Low 40-54 [facility] Comment on above: Performed By: #### L 100.0500, L500.2500, L503.6005 ####[facility] [address] [place], [address] Hemoglobin (Bld) [Mass/Vol] 12.0 g/dL Low 13.0-16.5 [facility] Comment on above: Performed By: #### L 100.0500, L500.2500, L503.6005 ####[facility] [address] [place], [address] MCH (RBC) [Entitic mass] 29.3 pg Normal 27.0-32.0 [facility] Comment on above: Performed By: #### L 100.0500, L500.2500, L503.6005 ####[facility] [address] [place], [address] MCHC (RBC) [Mass/Vol] 33.3 g/dL Normal 32-36 [facility] Comment on above: Performed By: #### L 100.0500, L500.2500, L503.6005 ####[facility] [address] [place], [address] MCV (RBC) [Entitic vol] 87.8 fL Normal 80-94 [facility] Comment on above: Performed By: #### L 100.0500, L500.2500, L503.6005 ####[facility] [address] [place], [address] Platelet mean volume (Bld) [Entitic vol] 10.1 fL Normal 6.2-12.0 [facility] Comment on above: Performed By: #### L 100.0500, L500.2500, L503.6005 ####[facility] [address] [place], [address] Platelets (Bld) [#/Vol] 134 10*3/uL Low 150-450 [facility] Comment on above: Performed By: #### L 100.0500, L500.2500, L503.6005 ####[facility] [address] [place], [address] RBC (Bld) [#/Vol] 4.10 10*6/uL Low 4.6-6.2 [facility] Comment on above: Performed By: #### L 100.0500, L500.2500, L503.6005 ####[facility] [address] [place], [address] RDW SD 46.0 fl High 35.1-43.9 [facility] Comment on above: Performed By: #### L 100.0500, L500.2500, L503.6005 ####[facility] [address] [place], [address] WBC (Bld) [#/Vol] 10.4 10*3/uL Normal 4.4-11.0 [facility] Comment on above: Performed By: #### L 100.0500, L500.2500, L503.6005 ####[facility] [address] [place], [address] Magnesiumon 02-13-2024 Magnesium [Mass/Vol] 2.2 mg/dL Normal 1.6-2.6 [facility] Comment on above: Order Comment: SG1 1 JSG1 5 H Performed By: #### L 779.5200 ####[facility] [address] [place], [address] 12 Lead EKGon 02-12-2024 12 Lead EKG Normal [facility] BNP,B-Type NATRIURETIC PEPTI Qamar 02-12-2024 Natriuretic peptide B (Bld) [Mass/Vol] 195.0 pg/mL High 0-100 [facility] Comment on above: Order Comment: OK TO ADD PER RN KAYLEE Performed By: #### L 503.2037 ####[facility] [address] [place], [address] Basic Metabolic Profile (BMP )on 02-12-2024 BUN/CRE 18.6 RATIO Normal 10-20 [facility] Comment on above: Order Comment: 'TROP ' Serial specimen #1, #2 or #3: 1 Performed By: #### M 200.1000, L100.0100, L500.2500, L501.4020, L503.6005 ####[facility] [address] [place], [address] CA,Total 8.6 mg/dL Normal 8.5-10.1 [facility] Comment on above: Order Comment: 'TROP ' Serial specimen #1, #2 or #3: 1 Performed By: #### M 200.1000, L100.0100, L500.2500, L501.4020, L503.6005 ####[facility] [address] [place], [address] Chloride [Moles/Vol] 106 mmol/L Normal 98-107 [facility] Comment on above: Order Comment: 'TROP ' Serial specimen #1, #2 or #3: 1 Performed By: #### M 200.1000, L100.0100, L500.2500, L501.4020, L503.6005 ####[facility] [address] [place], [address] CO2 [Moles/Vol] 29.0 mmol/L Normal 21.0-32.0 [facility] Comment on above: Order Comment: 'TROP ' Serial specimen #1, #2 or #3: 1 Performed By: #### M 200.1000, L100.0100, L500.2500, L501.4020, L503.6005 ####[facility] [address] [place], [address] Creatinine [Mass/Vol] 1.45 mg/dL High 0.70-1.30 [facility] Comment on above: Order Comment: 'TROP ' Serial specimen #1, #2 or #3: 1 Result Comment: The validity of the calculated GFR GFRAA in patients over70 years has not been determined. Clinical correlation isessential. Performed By: #### M 200.1000, L100.0100, L500.2500, L501.4020, L503.6005 ####[facility] [address] [place], [address] ECRCL 53.60 ml/min Normal [facility] Comment on above: Order Comment: 'TROP ' Serial specimen #1, #2 or #3: 1 Performed By: #### M 200.1000, L100.0100, L500.2500, L501.4020, L503.6005 ####[facility] [address] [place], [address] EST GFR - AA 61 mL/min Normal >60 [facility] Comment on above: Order Comment: 'TROP ' Serial specimen #1, #2 or #3: 1 Result Comment: Afri can [place] Citizen GFR Calc Performed By: #### M 200.1000, L100.0100, L500.2500, L501.4020, L503.6005 ####[facility] [address] [place], [address] GAP 6 Normal 5-15 [facility] Comment on above: Order Comment: 'TROP ' Serial specimen #1, #2 or #3: 1 Performed By: #### M 200.1000, L100.0100, L500.2500, L501.4020, L503.6005 ####[facility] [address] [place], [address] GFR/1.73 sq M.predicted among non-blacks MDRD (S/P/Bld) [Vol rate/Area] 50 mL/min/{1.73_m2} Low >60 [facility] Comment on above: Order Comment: 'TROP ' Serial specimen #1, #2 or #3: 1 Result Comment: Non- GFR Calc Performed By: #### M 200.1000, L100.0100, L500.2500, L501.4020, L503.6005 ####[facility] [address] [place], [address] Glucose [Mass/Vol] 130 mg/dL High 74-106 [facility] Comment on above: Order Comment: 'TROP ' Serial specimen #1, #2 or #3: 1 Result Comment: Fast ing Glucose result greater than or equal to 126 mg/dLsuggests DIABETES MELLITUS per A.D.A. criteria. Performed By: #### M 200.1000, L100.0100, L500.2500, L501.4020, L503.6005 ####[facility] [address] [place], [address] Potassium [Moles/Vol] 2.8 mmol/L Low 3.5-5.1 [facility] Comment on above: Order Comment: 'TROP ' Serial specimen #1, #2 or #3: 1 Performed By: #### M 200.1000, L100.0100, L500.2500, L501.4020, L503.6005 ####[facility] [address] [place], [address] Sodium [Moles/Vol] 140 mmol/L Normal 136-145 [facility] Comment on above: Order Comment: 'TROP ' Serial specimen #1, #2 or #3: 1 Performed By: #### M 200.1000, L100.0100, L500.2500, L501.4020, L503.6005 ####[facility] [address] [place], [address] Urea nitrogen [Mass/Vol] 27 mg/dL High 7-18 [facility] Comment on above: Order Comment: 'TROP ' Serial specimen #1, #2 or #3: 1 Performed By: #### M 200.1000, L100.0100, L500.2500, L501.4020, L503.6005 ####[facility] [address] [place], [address] Brain/Head without Contrasto n 02-11-2023 Brain/Head without Contrast Normal [facility] CBC W/Diff, Automatedon 11-3 0-2023 Absolute Lymph 0.66 X10 3/uL Low 0.83-4.51 [facility] Comment on above: Performed By: #### M 200.1000, L100.0100, L500.2500, L501.4020, L503.6005 ####[facility] [address] [place], [address] Absolute Neut 3.8 X10 3/uL Normal 2.0-7.7 [facility] Comment on above: Performed By: #### M 200.1000, L100.0100, L500.2500, L501.4020, L503.6005 ####[facility] [address] [place], [address] Basophils/100 WBC (Bld) 0.6 % Normal 0-1 [facility] Comment on above: Performed By: #### M 200.1000, L100.0100, L500.2500, L501.4020, L503.6005 ####[facility] [address] [place], [address] Eosinophils/100 WBC (Bld) 2.8 % Normal 0-5 [facility] Comment on above: Performed By: #### M 200.1000, L100.0100, L500.2500, L501.4020, L503.6005 ####[facility] [address] [place], [address] Erythrocyte distribution width (RBC) [Ratio] 14.3 % Normal 11.6-14.6 [facility] Comment on above: Performed By: #### M 200.1000, L100.0100, L500.2500, L501.4020, L503.6005 ####[facility] [address] [place], [address] Hematocrit (Bld) [Volume fraction] 35.1 % Low 40-54 [facility] Comment on above: Performed By: #### M 200.1000, L100.0100, L500.2500, L501.4020, L503.6005 ####[facility] [address] [place], [address] Hemoglobin (Bld) [Mass/Vol] 11.7 g/dL Low 13.0-16.5 [facility] Comment on above: Performed By: #### M 200.1000, L100.0100, L500.2500, L501.4020, L503.6005 ####[facility] [address] [place], [address] IG% 0.400 Normal 0.0-0.9 [facility] Comment on above: Result Comment: IG% - Immature Granulocytes (promyelocytes, myelocytes andmetamyelocytes) > 1% indicates that a LEFT SHIFT is Present. Performed By: #### M 200.1000, L100.0100, L500.2500, L501.4020, L503.6005 ####[facility] [address] [place], [address] Lymphocytes/100 WBC (Bld) 12.4 % Low 19-41 [facility] Comment on above: Performed By: #### M 200.1000, L100.0100, L500.2500, L501.4020, L503.6005 ####[facility] [address] [place], [address] MCH (RBC) [Entitic mass] 29.8 pg Normal 27.0-32.0 [facility] Comment on above: Performed By: #### M 200.1000, L100.0100, L500.2500, L501.4020, L503.6005 ####[facility] [address] [place], [address] MCHC (RBC) [Mass/Vol] 33.3 g/dL Normal 32-36 [facility] Comment on above: Performed By: #### M 200.1000, L100.0100, L500.2500, L501.4020, L503.6005 ####[facility] [address] [place], [address] MCV (RBC) [Entitic vol] 89.3 fL Normal 80-94 [facility] Comment on above: Performed By: #### M 200.1000, L100.0100, L500.2500, L501.4020, L503.6005 ####[facility] [address] [place], [address] Monocytes/100 WBC (Bld) 11.7 % High 0-10 [facility] Comment on above: Performed By: #### M 200.1000, L100.0100, L500.2500, L501.4020, L503.6005 ####[facility] [address] [place], [address] Neutrophils/100 WBC (Bld) 72.1 % High 47-70 [facility] Comment on above: Performed By: #### M 200.1000, L100.0100, L500.2500, L501.4020, L503.6005 ####[facility] [address] [place], [address] Nucleated RBC (Bld) [#/Vol] 0 10*3/uL Normal 0-5 [facility] Comment on above: Performed By: #### M 200.1000, L100.0100, L500.2500, L501.4020, L503.6005 ####[facility] [address] [place], [address] Platelet mean volume (Bld) [Entitic vol] 10.3 fL Normal 6.2-12.0 [facility] Comment on above: Performed By: #### M 200.1000, L100.0100, L500.2500, L501.4020, L503.6005 ####[facility] [address] [place], [address] Platelets (Bld) [#/Vol] 133 10*3/uL Low 150-450 [facility] Comment on above: Performed By: #### M 200.1000, L100.0100, L500.2500, L501.4020, L503.6005 ####[facility] [address] [place], [address] RBC (Bld) [#/Vol] 3.93 10*6/uL Low 4.6-6.2 [facility] Comment on above: Performed By: #### M 200.1000, L100.0100, L500.2500, L501.4020, L503.6005 ####[facility] [address] [place], [address] RDW SD 47.2 fl High 35.1-43.9 [facility] Comment on above: Performed By: #### M 200.1000, L100.0100, L500.2500, L501.4020, L503.6005 ####[facility] [address] [place], [address] WBC (Bld) [#/Vol] 5.3 10*3/uL Normal 4.4-11.0 [facility] Comment on above: Performed By: #### M 200.1000, L100.0100, L500.2500, L501.4020, L503.6005 ####[facility] [address] [place], [address] Chest 1 View (Portable)on Chest 1 View (Portable) Normal [facility] Chest without Contraston Chest without Contrast Normal [facility] Echo Complete W/ Contraston 02-12-2024 Echo Complete W/ Contrast Normal [facility] Emergency Department Summary on 02-12-2024 Emergency Department Summary Normal [facility] H AND P Exam - Hospitaliston 02-12-2024 H&P Exam - Hospitalist Normal [facility] L501.4020on 02-12-2024 TROPONIN-I HS 17 pg/mL Normal 3.0-78.0 [facility] Comment on above: Order Comment: 'TROP ' Serial specimen #1, #2 or #3: 1 Result Comment: Plehomero se Note: New Test Units and Gender Specific Reference Ranges. For more information see Policy Stat Procedure [place] High Sensitivity Troponin (TNIH) and attachments. Performed By: #### M 200.1000, L100.0100, L500.2500, L501.4020, L503.6005 ####[facility] [address] [place], [address] Lactic Acidon 02-12-2024 Lactate [Moles/Vol] 1.4 mmol/L Normal 0.4-1.9 [facility] Comment on above: Order Comment: Y Performed By: #### M 200.1000, L100.0100, L500.2500, L501.4020, L503.6005 ####[facility] [address] [place], [address] M100.678on 02-12-2024 M100.678 SARS-CoV-2 (COVID 19 ) Negative INFLUENZA A Negative INFLUENZA B Negative RSV PCR Negative Normal [facility] Comment on above: Performed By: #### L 400.0001, M100.678 ####[facility] [address] [place], [address] Urinalysis, Completeon 02-11 WBC 0-5 SEEN Normal 0-5 [facility] Comment on above: Order Comment: CLEAN CATCH Performed By: #### L 400.0001, M100.678 ####[facility] [address] [place], [address] BACTERIA 0 SEEN Normal None Seen [facility] Comment on above: Order Comment: CLEAN CATCH Performed By: #### L 400.0001, M100.678 ####[facility] [address] [place], [address] EPI,SQUAMOUS 0 SEEN Normal 0-5 [facility] Comment on above: Order Comment: CLEAN CATCH Performed By: #### L 400.0001, M100.678 ####[facility] [address] [place], [address] Mucus Ql (Urine sed) 0 SEEN Normal [facility] Comment on above: Order Comment: CLEAN CATCH Performed By: #### L 400.0001, M100.678 ####[facility] [address] [place], [address] RBC 0 SEEN Normal 0-5 [facility] Comment on above: Order Comment: CLEAN CATCH Performed By: #### L 400.0001, M100.678 ####[facility] [address] [place], [address] No Panel Informationon 02-08 Culture Urine >100,000 cfu/ml Mult iple bacterial morphotypes present. Probable Contamination. Suggest recollection if clinically indicated. [facility] Work Phone: Initial Evaluation (3) - PTo n 02-01-2024 Initial Evaluation (3) - PT Normal [facility] SP/HP.SPREEVon 12-29-2023 SP/HP.SPREEV Normal [facility] Cardiology Visit Reporton Cardiology Visit Report Normal [facility] No Panel Informationon 11-24 Culture Wound Aerobe Few Normal skin saroj ra present. Sensitivity testing not indicated. [facility] Work Phone: GS No organisms seen. [facility] Work Phone: TOBRAMYCIN:SUSC:PT:ISOLATE:O RDQN:MICon 11-25-2023 Tobramycin DEV [Susc] >100,000 cfu/ml Gr am Negative Rods Unable to further ID [facility] Work Phone: Tobramycin DEV [Susc]on 11-13 Gram Negative Rods Gram Negative Rods [facility] Work Phone: CEFEPIME:SUSC:PT:ISOLATE:ORD QN:MICon 09-28-2023 Cefepime DEV [Susc] 50,000 - 100,000 cfu /ml Pseudomonas aeruginosa [facility] Work Phone: Cefepime DEV [Susc]on 2023 Pseudomonas aeruginosa Pseudomonas aeruginosa [facility] Work Phone: XR CLAVICLE LEFTon 4 XR [...] 12:00:24 PM Ordering Provider: MALLORY Sibley [facility]ly [facility] ([place]) AMIKACIN:SUSC:PT:ISOLATE:ORD QN:MICon 01-11-2024 Amikacin DEV [Susc] >100,000 cfu/ml Citrobacter koseri >100,000 cfu/ml Group B Beta Hemolytic Strep (Strep agalactiae) Sensitivity testing is not recommended for one of the following reasons: 1. Established susceptibility patterns are available or 2. Interpretative criteria are not available. [facility] Work Phone: Amikacin DEV [Susc]on 2023 Citrobacter koseri Citrobacter koseri [facility] Work Phone: Basophil percentageOrdered B y: Alessandra Melchor on 01-29-2023 Chloride [Moles/Vol] 110 mmol/L 98-107 [facility] Glucose [Mass/Vol] 114 mg/dL 74-106 [facility] Comment on above: Fasting Glucose resu lt from 100 to 125 mg/dL suggests IMPAIRED HOMEOSTASIS per A.D.A. criteria. Potassium [Moles/Vol] 3.7 mmol/L 3.5-5.1 [facility] Sodium [Moles/Vol] 141 mmol/L 136-145 [facility] Laboratory - Chemistry and C hemistry - challengeOrdered By: Alessandra Melchor on 01-29-2023 CO2 [Moles/Vol] 26.0 mmol/L 21.0-32.0 [facility] Urea nitrogen/Creatinine [Mass ratio] 13.3 mg/mg 10-20 [facility] No Panel InformationOrdered By: Alessandra Melchor on 01-29-2023 Estimated GFR (MDRD) Amer 76 mL/min >60 [facility] Comment on above: GFR Calc Estimated GFR (MDRD) Non-Af Amer 63 mL/min >60 [facility] Comment on above: Non- GFR Calc Prostate Specific Antigen Total 3.43 ng/mL 0.0-4.0 [facility] Comment on above: This test was perfor med using the TPSA assay method [facility]. Values obtained with differentassay methods cannot be used interchangably.When changing PSA assays in the course of monitoring apatient, additional sequential testing should be carriedout to confirm baseline values. Urine Microalbumin/Creatinine Ratio 69.2 mg/g CRE <30 [facility] Serum or plasma calcium nicole urement (mass/volume)Ordered By: Alessandra Melchor on 01-29-2023 Calcium [Mass/Vol] 8.7 mg/dL 8.5-10.1 [facility] Serum or plasma creatinine m easurement (mass/volume)Ordered By: Alessandra Melchor on 01-29-2023 Creatinine [Mass/Vol] 1.20 mg/dL 0.70-1.30 [facility] Comment on above: The validity of the calculated GFR & GFRAA in patients over 70 years has not been determined. Clinical correlation is essential. Serum or plasma urea nitroge n measurement (mass/volume)Ordered By: Alessandra Melchor on 01-29-2023 Urea nitrogen [Mass/Vol] 16 mg/dL 7-18 [facility] Thin prep Papanicolaou smear with manual screeningOrdered By: Alessandra Melchor on 01-29-2023 Thin prep Papanicolaou smear with manual screening 5 5-15 [facility] Thin prep Papanicolaou smear with manual screening 79.6 mg/L NO RANGE EST. [facility] Urine creatinine measurement (mass/volume)Ordered By: Alessandra Melchor on 01-29-2023 Creatinine (U) [Mass/Vol] 115.00 mg/dL NO RANGE EST. [facility] Absolute lymphocyte countOrd ered By: Alessandra Melchor on 11-04-2022 Lymphocytes Auto (Unsp spec) [#/Vol] 1.35 10*3/uL 0.83-4.51 [facility] Basophil percentageOrdered B y: Alessandra Melchor on 11-04-2022 Basophils/100 WBC (Bld) 0.4 % 0-1 [facility] Chloride [Moles/Vol] 110 mmol/L 98-107 [facility] Eosinophils/100 WBC (Bld) 1.3 % 0-5 [facility] Glucose [Mass/Vol] 87 mg/dL 74-106 [facility] Neutrophils (Bld) [#/Vol] 5.2 10*3/uL 2.0-7.7 [facility] Neutrophils/100 WBC (Bld) 71.8 % 47-70 [facility] Potassium [Moles/Vol] 3.8 mmol/L 3.5-5.1 [facility] Sodium [Moles/Vol] 143 mmol/L 136-145 [facility] WBC (Bld) [#/Vol] 7.2 10*3/uL 4.4-11.0 [facility] Blood erythrocytes count (nu mber/volume)Ordered By: Alessandra Melchor on 11-04-2022 RBC (Bld) [#/Vol] 3.90 10*6/uL 4.6-6.2 [facility] Blood hemoglobin measurement (mass/volume)Ordered By: Alessandra Melchor on 11-04-2022 Hemoglobin (Bld) [Mass/Vol] 11.6 g/dL 13.0-16.5 [facility] Blood lymphocytes/100 leukoc ytesOrdered By: Alessandra Melchor on 11-04-2022 Lymphocytes/100 WBC (Bld) 18.8 % 19-41 [facility] Blood monocytes/100 leukocyt esOrdered By: Alessandra Melchor on 11-04-2022 Monocytes/100 WBC (Bld) 7.1 % 0-10 [facility] Blood platelet mean volumeOr dered By: Alessandra Melchor on 11-04-2022 Platelet mean volume (Bld) [Entitic vol] 9.8 fL 6.2-12.0 [facility] Determination of erythrocyte mean corpuscular volume (MCV)Ordered By: Alessandra Melchor on 11-04-2022 MCV (RBC) [Entitic vol] 93.8 fL 80-94 [facility] Hematocrit Auto (Bld) [Volum e fraction]Ordered By: Alessandra Melchor on 11-04-2022 Hematocrit (Bld) [Volume fraction] 36.6 % 40-54 [facility] Laboratory - Chemistry and C hemistry - challengeOrdered By: Alessandra Melchor on 11-04-2022 CO2 [Moles/Vol] 29.0 mmol/L 21.0-32.0 [facility] Natriuretic peptide B (Bld) [Mass/Vol] 316.3 pg/mL 0-100 [facility] Urea nitrogen/Creatinine [Mass ratio] 19.8 mg/mg 10-20 [facility] Laboratory - Hematology and Cell countsOrdered By: Alessandra Melchor on 11-04-2022 Erythrocyte distribution width (RBC) [Entitic vol] 54.3 fL 35.1-43.9 [facility] Erythrocyte distribution width (RBC) [Ratio] 15.9 % 11.6-14.6 [facility] Immature granulocytes/100 WBC (Bld) 0.600 % 0.0-0.9 [facility] Comment on above: IG% - Immature Granu locytes (promyelocytes, myelocytes and metamyelocytes) > 1% indicates that a LEFT SHIFT is Present. MCH (RBC) [Entitic mass] 29.7 pg 27.0-32.0 [facility] Nucleated RBC/100 WBC (Bld) [Ratio] 0 % 0-5 [facility] MCHC Auto (RBC) [Mass/Vol]Or dered By: Alessandra Melchor on 11-04-2022 MCHC (RBC) [Mass/Vol] 31.7 g/dL 32-36 [facility] No Panel InformationOrdered By: Alessandra Melchor on 11-04-2022 Estimated GFR (MDRD) Amer 83 mL/min >60 [facility] Comment on above: GFR Calc Estimated GFR (MDRD) Non-Af Amer 68 mL/min >60 [facility] Comment on above: Non- GFR Calc Platelets bldOrdered By: Samuel Melchor on 11-04-2022 Platelets (Bld) [#/Vol] 176 10*3/uL 150-450 [facility] Serum or plasma calcium nicole urement (mass/volume)Ordered By: Alessandra Melchor on 11-04-2022 Calcium [Mass/Vol] 9.0 mg/dL 8.5-10.1 [facility] Serum or plasma creatinine m easurement (mass/volume)Ordered By: Alessandra Melchor on 11-04-2022 Creatinine [Mass/Vol] 1.11 mg/dL 0.70-1.30 [facility] Comment on above: The validity of the calculated GFR & GFRAA in patients over 70 years has not been determined. Clinical correlation is essential. Serum or plasma urea nitroge n measurement (mass/volume)Ordered By: Alessandra Melchor on 11-04-2022 Urea nitrogen [Mass/Vol] 22 mg/dL 7-18 [facility] Thin prep Papanicolaou smear with manual screeningOrdered By: Alessandra Melchor on 11-04-2022 Thin prep Papanicolaou smear with manual screening 4 5-15 [facility] TOBRAMYCIN:SUSC:PT:ISOLATE:O RDQN:MICon 08-31-2022 Tobramycin DEV [Susc] 10,000 - 50,000 cf u/ml Pseudomonas aeruginosa [facility] Work Phone: Tobramycin DEV [Susc]on 08-13 Pseudomonas aeruginosa Pseudomonas aeruginosa [facility] Work Phone: Absolute lymphocyte countOrd ered By: Dr. Cantu on 08-28-2022 Lymphocytes Auto (Unsp spec) [#/Vol] 0.74 10*3/uL 0.83-4.51 [facility] Basophil percentageOrdered B y: Dr. Cantu on 08-28-2022 Basophils/100 WBC (Bld) 0.2 % 0-1 [facility] Chloride [Moles/Vol] 106 mmol/L 98-107 [facility] Eosinophils/100 WBC (Bld) 0.8 % 0-5 [facility] Glucose [Mass/Vol] 122 mg/dL 74-106 [facility] Comment on above: Fasting Glucose resu lt from 100 to 125 mg/dL suggests IMPAIRED HOMEOSTASIS per A.D.A. criteria. Neutrophils (Bld) [#/Vol] 12.2 10*3/uL 2.0-7.7 [facility] Neutrophils/100 WBC (Bld) 85.6 % 47-70 [facility] Potassium [Moles/Vol] 3.3 mmol/L 3.5-5.1 [facility] Sodium [Moles/Vol] 139 mmol/L 136-145 [facility] WBC (Bld) [#/Vol] 14.2 10*3/uL 4.4-11.0 [facility] Blood erythrocytes count (nu mber/volume)Ordered By: Dr. Cantu on 08-28-2022 RBC (Bld) [#/Vol] 4.29 10*6/uL 4.6-6.2 [facility] Blood hemoglobin measurement (mass/volume)Ordered By: Dr. Cantu on 08-28-2022 Hemoglobin (Bld) [Mass/Vol] 12.8 g/dL 13.0-16.5 [facility] Blood lymphocytes/100 leukoc ytesOrdered By: Dr. Cantu on 08-28-2022 Lymphocytes/100 WBC (Bld) 5.2 % 19-41 [facility] Blood monocytes/100 leukocyt esOrdered By: Dr. Cantu on 08-28-2022 Monocytes/100 WBC (Bld) 7.7 % 0-10 [facility] Blood platelet mean volumeOr dered By: Dr. Cantu on 08-28-2022 Platelet mean volume (Bld) [Entitic vol] 10.6 fL 6.2-12.0 [facility] Determination of erythrocyte mean corpuscular volume (MCV)Ordered By: Dr. Cantu on 08-28-2022 MCV (RBC) [Entitic vol] 90.9 fL 80-94 [facility] Hematocrit Auto (Bld) [Volum e fraction]Ordered By: Dr. Cantu on 08-28-2022 Hematocrit (Bld) [Volume fraction] 39.0 % 40-54 [facility] Laboratory - Chemistry and C hemistry - challengeOrdered By: Dr. Cantu on 08-28-2022 CO2 [Moles/Vol] 24.0 mmol/L 21.0-32.0 [facility] Urea nitrogen/Creatinine [Mass ratio] 32.0 mg/mg 10-20 [facility] Laboratory - Hematology and Cell countsOrdered By: Dr. Cantu on 08-28-2022 Erythrocyte distribution width (RBC) [Entitic vol] 49.2 fL 35.1-43.9 [facility] Erythrocyte distribution width (RBC) [Ratio] 14.8 % 11.6-14.6 [facility] Immature granulocytes/100 WBC (Bld) 0.500 % 0.0-0.9 [facility] Comment on above: IG% - Immature Granu locytes (promyelocytes, myelocytes and metamyelocytes) > 1% indicates that a LEFT SHIFT is Present. MCH (RBC) [Entitic mass] 29.8 pg 27.0-32.0 [facility] Nucleated RBC/100 WBC (Bld) [Ratio] 0 % 0-5 [facility] MCHC Auto (RBC) [Mass/Vol]Or dered By: Dr. Cantu on 08-28-2022 MCHC (RBC) [Mass/Vol] 32.8 g/dL 32-36 [facility] No Panel InformationOrdered By: Dr. Cantu on 08-28-2022 Estimated Creatinine Clearance Calc 74.81 ml/min [facility] Estimated GFR (MDRD) Amer 113 mL/min >60 [facility] Comment on above: GFR Calc Estimated GFR (MDRD) Non-Af Amer 94 mL/min >60 [facility] Comment on above: Non- GFR Calc Platelets bldOrdered By: Dr. Cantu on 08-28-2022 Platelets (Bld) [#/Vol] 191 10*3/uL 150-450 [facility] Serum or plasma calcium nicole urement (mass/volume)Ordered By: Dr. Cantu on 08-28-2022 Calcium [Mass/Vol] 9.1 mg/dL 8.5-10.1 [facility] Serum or plasma creatinine m easurement (mass/volume)Ordered By: Dr. Cantu on 08-28-2022 Creatinine [Mass/Vol] 0.84 mg/dL 0.70-1.30 [facility] Comment on above: The validity of the calculated GFR & GFRAA in patients over 70 years has not been determined. Clinical correlation is essential. Serum or plasma urea nitroge n measurement (mass/volume)Ordered By: Dr. Cantu on 08-28-2022 Urea nitrogen [Mass/Vol] 27 mg/dL 7-18 [facility] Thin prep Papanicolaou smear with manual screeningOrdered By: Dr. Cantu on 08-28-2022 Thin prep Papanicolaou smear with manual screening 9 5-15 [facility] Culture, urineOrdered By: Dr Antonio Zavala on 08-27-2022 Bacteria identified Cx Nom (U) Citrobacter koseri [facility] Bacteria identified Cx Nom (U) Streptococcus agalactiae (B) [facility] Laboratory - Chemistry and C hemistry - challengeOrdered By: Dr. Cantu on 08-27-2022 Lipase [Catalytic activity/Vol] 72 U/L 13-75 [facility] Comment on above: Please note:LIPASE r evised reference range effective 22. New Lipase methodology. Expected to produce lower values than the previous assay method. NEW Reference Range: 13 - 75 U/L Basophil percentageOrdered B y: Dr. Cantu on 08-26-2022 Bilirubin [Mass/Vol] 1.70 mg/dL 0.20-1.00 [facility] Comment on above: For patients on eltr ombopag therapy, use of Dimension [place] TBIL is not recommended. Protein [Mass/Vol] 6.4 g/dL 6.4-8.2 [facility] Direct bilirubinOrdered By: Dr. Cantu on 08-26-2022 Bilirubin.direct [Mass/Vol] 0.90 mg/dL 0.00-0.30 [facility] Laboratory - Chemistry and C hemistry - challengeOrdered By: Dr. Cantu on 08-26-2022 ALP [Catalytic activity/Vol] 89 U/L 45-117 [facility] ALT [Catalytic activity/Vol] 128 U/L 16-61 [facility] Globulin (S) [Mass/Vol] 3.5 g/dL 2.2-4.2 [facility] Serum or plasma albumin nicole urement (mass/volume)Ordered By: Dr. Cantu on 08-26-2022 Albumin [Mass/Vol] 2.9 g/dL 3.2-5.0 [facility] Thin prep Papanicolaou smear with manual screeningOrdered By: Dr. Cantu on 08-26-2022 Thin prep Papanicolaou smear with manual screening 41 U/L 15-37 [facility] Basophil percentageOrdered B y: Dr. Zavala on 08-25-2022 Lactate [Moles/Vol] 1.0 mmol/L 0.4-2.0 [facility] Basophil percentage >100 SEEN /hpf 0-5 [facility] Bilirubin Test strip Ql (U)O rdered By: Dr. Zavala on 08-25-2022 Bilirubin Ql (U) 1 mg/dL Negative [facility] Comment on above: COLOR OF URINE MAY A FFECT DIPSTICK RESULTS. Culture, urineOrdered By: Terry Zavala on 08-25-2022 Bacteria identified Cx Nom (U) Citrobacter koseri [facility] Bacteria identified Cx Nom (U) Streptococcus agalactiae (B) [facility] Ketones Test strip Ql (U)Ord ered By: Dr. Zavala on 08-25-2022 Ketones Ql (U) 5 mg/dl Negative [facility] Laboratory - Microbiology an d Antimicrobial susceptibilityOrdered By: Juaquin Zavala on 08-25-2022 Bacteria identified Cx Nom (Bld) No growth in 5 days. [facility] Mucus LM Ql (Urine sed)Order ed By: Dr. Zavala on 08-25-2022 Mucus Ql (Urine sed) 0 SEEN /hpf [facility] Nitrite Test strip Ql (U)Ord ered By: Dr. Zavala on 08-25-2022 Nitrite Ql (U) Positive Negative [facility] No Panel InformationOrdered By: Dr. Zavala on 08-25-2022 Troponin I High Sensitivity 11 pg/mL 3.0-78.0 [facility] Comment on above: Please Note: New Padmini t Units and Gender Specific Reference Ranges. For more information see Policy Stat Procedure [place] High Sensitivity Troponin (TNIH) and attachments. Protein Test strip Ql (U)Ord ered By: Dr. Zavala on 08-25-2022 Protein Ql (U) 30 mg/dl Negative [facility] Serum or plasma albumin/glob ulin mass ratioOrdered By: Dr. Zavala on 08-25-2022 Albumin/Globulin [Mass ratio] 1.0 {ratio} 0.9-2.4 [facility] Squamous epithelial cells de tection in urine sediment by light microscopyOrdered By: Dr. Zavala on 08-25-2022 Epithelial cells.squamous LM Ql (Urine sed) 0-5 SEEN /hpf 0-5 [facility] Urine blood detectionOrdered By: Dr. Zavala on 08-25-2022 RBC Ql (U) 150 /ul Negative [facility] RBC Ql (U) 0-5 SEEN /hpf 0-5 [facility] Urine clarityOrdered By: Dr. Zavala on 08-25-2022 Clarity (U) Cloudy Clear [facility] Urine color determinationOrd ered By: Dr. Zavala on 08-25-2022 Color (U) Yellow Yellow [facility] Urine glucose detectionOrder ed By: Dr. Zavala on 08-25-2022 Glucose Ql (U) Normal mg/dl Normal [facility] Urine leukocyte esterase det ection by dipstickOrdered By: Dr. Zavala on 08-25-2022 Leukocyte esterase Test strip Ql (U) 500 /ul Negative [facility] Urine pHOrdered By: Dr. An estevez on 08-25-2022 pH (U) 6.0 [pH] 5.0 - 8.0 [facility] Urine sediment bacteria coun t by microscopy (number/high power field)Ordered By: Dr. Zavala on 08-25-2022 Bacteria LM.HPF (Urine sed) [#/Area] 1 /[HPF] None Seen [facility] Urine specific gravity measu rementOrdered By: Dr. Zavala on 08-25-2022 Specific gravity (U) [Rel density] 1.020 1.002-1.03 0 [facility] Urobilinogen Auto test strip Ql (U)Ordered By: Dr. 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 Probable Contamination. Suggest recollection if clinically indicated. [facility] Work Phone: Absolute lymphocyte counton 09-16-2021 Lymphocytes Auto (Unsp spec) [#/Vol] 1.03 10*3/uL 0.83-4.51 [facility] Work Phone: Basophil percentageon 2021 Basophils/100 WBC (Bld) 0.7 % 0-1 [facility] Work Phone: Chloride [Moles/Vol] 111 mmol/L 98-107 [facility] Work Phone: [phone] Eosinophils/100 WBC (Bld) 2.2 % 0-5 [facility] Work Phone: Glucose [Mass/Vol] 92 mg/dL 74-106 [facility] Work Phone: Neutrophils (Bld) [#/Vol] 4.1 10*3/uL 2.0-7.7 [facility] Work Phone: Neutrophils/100 WBC (Bld) 70.6 % 47-70 [facility] Work Phone: Potassium [Moles/Vol] 3.7 mmol/L 3.5-5.1 [facility] Work Phone: Sodium [Moles/Vol] 140 mmol/L 136-145 [facility] Work Phone: WBC (Bld) [#/Vol] 5.9 10*3/uL 4.4-11.0 [facility] Work Phone: Blood erythrocytes count (nu mber/volume)on 09-16-2021 RBC (Bld) [#/Vol] 3.66 10*6/uL 4.6-6.2 [facility] Work Phone: Blood hemoglobin measurement (mass/volume)on 09-16-2021 Hemoglobin (Bld) [Mass/Vol] 11.2 g/dL 13.0-16.5 [facility] Work Phone: Blood lymphocytes/100 leukoc yteson 09-16-2021 Lymphocytes/100 WBC (Bld) 17.5 % 19-41 [facility] Work Phone: Blood monocytes/100 leukocyt eson 09-16-2021 Monocytes/100 WBC (Bld) 8.0 % 0-10 [facility] Work Phone: Blood platelet mean volumeon 09-16-2021 Platelet mean volume (Bld) [Entitic vol] 9.6 fL 6.2-12.0 [facility] Work Phone: Determination of erythrocyte mean corpuscular volume (MCV)on 09-16-2021 MCV (RBC) [Entitic vol] 93.2 fL 80-94 [facility] Work Phone: Hematocrit Auto (Bld) [Volum e fraction]on 09-16-2021 Hematocrit (Bld) [Volume fraction] 34.1 % 40-54 [facility] Work Phone: Laboratory - Chemistry and C hemistry - challengeon 09-16-2021 CO2 [Moles/Vol] 24.0 mmol/L 21.0-32.0 [facility] Work Phone: Urea nitrogen/Creatinine [Mass ratio] 26.7 mg/mg 10-20 [facility] Work Phone: Laboratory - Hematology and Cell countson 09-16-2021 Erythrocyte distribution width (RBC) [Entitic vol] 50.5 fL 35.1-43.9 [facility] Work Phone: Erythrocyte distribution width (RBC) [Ratio] 14.9 % 11.6-14.6 [facility] Work Phone: Immature granulocytes/100 WBC (Bld) 1.000 % 0.0-0.9 [facility] Work Phone: Comment on above: IG% - Immature Granu locytes (promyelocytes, myelocytes and metamyelocytes) > 1% indicates that a LEFT SHIFT is Present. MCH (RBC) [Entitic mass] 30.6 pg 27.0-32.0 [facility] Work Phone: Nucleated RBC/100 WBC (Bld) [Ratio] 0 % 0-5 [facility] Work Phone: MCHC Auto (RBC) [Mass/Vol]on 09-16-2021 MCHC (RBC) [Mass/Vol] 32.8 g/dL 32-36 [facility] Work Phone: No Panel Informationon 09-16 Estimated Creatinine Clearance Calc 61.75 ml/min [facility] Work Phone: Estimated GFR (MDRD) Amer 131 mL/min >60 [facility] Work Phone: Comment on above: GFR Calc Estimated GFR (MDRD) Non-Af Amer 108 mL/min >60 [facility] Work Phone: Comment on above: Non- GFR Calc Platelets bldon 09-16-2021 Platelets (Bld) [#/Vol] 178 10*3/uL 150-450 [facility] Work Phone: Serum or plasma calcium nicole urement (mass/volume)on 09-16-2021 Calcium [Mass/Vol] 9.0 mg/dL 8.5-10.1 [facility] Work Phone: Serum or plasma creatinine m easurement (mass/volume)on 09-16-2021 Creatinine [Mass/Vol] 0.75 mg/dL 0.70-1.30 [facility] Work Phone: Comment on above: The validity of the calculated GFR & GFRAA in patients over 70 years has not been determined. Clinical correlation is essential. Serum or plasma urea nitroge n measurement (mass/volume)on 09-16-2021 Urea nitrogen [Mass/Vol] 20 mg/dL 7-18 [facility] Work Phone: Thin prep Papanicolaou smear with manual screeningon 09-16-2021 Thin prep Papanicolaou smear with manual screening 5 5-15 [facility] Work Phone: Absolute lymphocyte counton 09-08-2021 Lymphocytes Auto (Unsp spec) [#/Vol] 0.72 10*3/uL 0.83-4.51 [facility] Work Phone: Basophil percentageon 2021 Basophils/100 WBC (Bld) 0.5 % 0-1 [facility] Work Phone: Chloride [Moles/Vol] 108 mmol/L 98-107 [facility] Work Phone: Eosinophils/100 WBC (Bld) 2.3 % 0-5 [facility] Work Phone: Glucose [Mass/Vol] 99 mg/dL 74-106 [facility] Work Phone: Neutrophils (Bld) [#/Vol] 6.4 10*3/uL 2.0-7.7 [facility] Work Phone: Neutrophils/100 WBC (Bld) 80.6 % 47-70 [facility] Work Phone: Potassium [Moles/Vol] 3.7 mmol/L 3.5-5.1 [facility] Work Phone: Sodium [Moles/Vol] 139 mmol/L 136-145 [facility] Work Phone: WBC (Bld) [#/Vol] 8.0 10*3/uL 4.4-11.0 [facility] Work Phone: Blood erythrocytes count (nu mber/volume)on 09-08-2021 RBC (Bld) [#/Vol] 3.72 10*6/uL 4.6-6.2 [facility] Work Phone: Blood hemoglobin measurement (mass/volume)on 09-08-2021 Hemoglobin (Bld) [Mass/Vol] 11.5 g/dL 13.0-16.5 [facility] Work Phone: Blood lymphocytes/100 leukoc yteson 09-08-2021 Lymphocytes/100 WBC (Bld) 9.0 % 19-41 [facility] Work Phone: Blood monocytes/100 leukocyt eson 09-08-2021 Monocytes/100 WBC (Bld) 7.3 % 0-10 [facility] Work Phone: Blood platelet mean volumeon 09-08-2021 Platelet mean volume (Bld) [Entitic vol] 9.8 fL 6.2-12.0 [facility] Work Phone: Determination of erythrocyte mean corpuscular volume (MCV)on 09-08-2021 MCV (RBC) [Entitic vol] 90.9 fL 80-94 [facility] Work Phone: Hematocrit Auto (Bld) [Volum e fraction]on 09-08-2021 Hematocrit (Bld) [Volume fraction] 33.8 % 40-54 [facility] Work Phone: Laboratory - Chemistry and C hemistry - challengeon 09-08-2021 CO2 [Moles/Vol] 23.0 mmol/L 21.0-32.0 [facility] Work Phone: Urea nitrogen/Creatinine [Mass ratio] 19.8 mg/mg 10-20 [facility] Work Phone: Laboratory - Hematology and Cell countson 09-08-2021 Erythrocyte distribution width (RBC) [Entitic vol] 51.3 fL 35.1-43.9 [facility] Work Phone: Erythrocyte distribution width (RBC) [Ratio] 15.2 % 11.6-14.6 [facility] Work Phone: Immature granulocytes/100 WBC (Bld) 0.300 % 0.0-0.9 [facility] Work Phone: Comment on above: IG% - Immature Granu locytes (promyelocytes, myelocytes and metamyelocytes) > 1% indicates that a LEFT SHIFT is Present. MCH (RBC) [Entitic mass] 30.9 pg 27.0-32.0 [facility] Work Phone: Nucleated RBC/100 WBC (Bld) [Ratio] 0 % 0-5 [facility] Work Phone: MCHC Auto (RBC) [Mass/Vol]on 09-08-2021 MCHC (RBC) [Mass/Vol] 34.0 g/dL 32-36 [facility] Work Phone: No Panel Informationon 09-08 Estimated Creatinine Clearance Calc 76.23 ml/min [facility] Work Phone: Estimated GFR (MDRD) Amer 119 mL/min >60 [facility] Work Phone: Comment on above: GFR Calc Estimated GFR (MDRD) Non-Af Amer 99 mL/min >60 [facility] Work Phone: Comment on above: Non- GFR Calc Platelets bldon 09-08-2021 Platelets (Bld) [#/Vol] 139 10*3/uL 150-450 [facility] Work Phone: Serum or plasma calcium nicole urement (mass/volume)on 09-08-2021 Calcium [Mass/Vol] 8.9 mg/dL 8.5-10.1 [facility] Work Phone: Serum or plasma creatinine m easurement (mass/volume)on 09-08-2021 Creatinine [Mass/Vol] 0.81 mg/dL 0.70-1.30 [facility] Work Phone: Comment on above: The validity of the calculated GFR & GFRAA in patients over 70 years has not been determined. Clinical correlation is essential. Serum or plasma urea nitroge n measurement (mass/volume)on 06-27-2022 Urea nitrogen [Mass/Vol] 16 mg/dL 7-18 [facility] Work Phone: Thin prep Papanicolaou smear with manual screeningon 09-08-2021 Thin prep Papanicolaou smear with manual screening 8 5-15 [facility] Work Phone: Absolute lymphocyte counton 09-07-2021 Lymphocytes Auto (Unsp spec) [#/Vol] 0.99 10*3/uL 0.83-4.51 [facility] Work Phone: Basophil percentageon 2021 Basophil percentage 25-50 SEEN /hpf 0-5 [facility] Work Phone: Basophils/100 WBC (Bld) 0.2 % 0-1 [facility] Work Phone: Chloride [Moles/Vol] 109 mmol/L 98-107 [facility] Work Phone: Eosinophils/100 WBC (Bld) 0.9 % 0-5 [facility] Work Phone: [phone] Glucose [Mass/Vol] 155 mg/dL 74-106 [facility] Work Phone: [phone] Comment on above: Fasting Glucose resu lt greater than or equal to 126 mg/dL suggests DIABETES MELLITUS per A.D.A. criteria. Lactate [Moles/Vol] 1.2 mmol/L 0.4-2.0 [facility] Work Phone: [phone] Neutrophils (Bld) [#/Vol] 7.6 10*3/uL 2.0-7.7 [facility] Work Phone: Neutrophils/100 WBC (Bld) 79.5 % 47-70 [facility] Work Phone: Potassium [Moles/Vol] 3.8 mmol/L 3.5-5.1 [facility] Work Phone: Sodium [Moles/Vol] 139 mmol/L 136-145 [facility] Work Phone: WBC (Bld) [#/Vol] 9.6 10*3/uL 4.4-11.0 [facility] Work Phone: Bilirubin Test strip Ql (U)o n 09-07-2021 Bilirubin Ql (U) Negative Negative [facility] Work Phone: Blood erythrocytes count (nu mber/volume)on 09-07-2021 RBC (Bld) [#/Vol] 3.70 10*6/uL 4.6-6.2 [facility] Work Phone: Blood hemoglobin measurement (mass/volume)on 09-07-2021 Hemoglobin (Bld) [Mass/Vol] 11.3 g/dL 13.0-16.5 [facility] Work Phone: Blood lymphocytes/100 leukoc yteson 09-07-2021 Lymphocytes/100 WBC (Bld) 10.4 % 19-41 [facility] Work Phone: Blood monocytes/100 leukocyt eson 09-07-2021 Monocytes/100 WBC (Bld) 8.5 % 0-10 [facility] Work Phone: Blood platelet mean volumeon 09-07-2021 Platelet mean volume (Bld) [Entitic vol] 10.0 fL 6.2-12.0 [facility] Work Phone: Determination of erythrocyte mean corpuscular volume (MCV)on 09-07-2021 MCV (RBC) [Entitic vol] 93.5 fL 80-94 [facility] Work Phone: Hematocrit Auto (Bld) [Volum e fraction]on 09-07-2021 Hematocrit (Bld) [Volume fraction] 34.6 % 40-54 [facility] Work Phone: Ketones Test strip Ql (U)on 09-07-2021 Ketones Ql (U) Negative Negative [facility] Work Phone: Laboratory - Chemistry and C hemistry - challengeon 09-07-2021 CO2 [Moles/Vol] 25.0 mmol/L 21.0-32.0 [facility] Work Phone: Urea nitrogen/Creatinine [Mass ratio] 19.9 mg/mg 10-20 [facility] Work Phone: Laboratory - Hematology and Cell countson 09-07-2021 Erythrocyte distribution width (RBC) [Entitic vol] 53.1 fL 35.1-43.9 [facility] Work Phone: Erythrocyte distribution width (RBC) [Ratio] 15.4 % 11.6-14.6 [facility] Work Phone: Immature granulocytes/100 WBC (Bld) 0.500 % 0.0-0.9 [facility] Work Phone: Comment on above: IG% - Immature Granu locytes (promyelocytes, myelocytes and metamyelocytes) > 1% indicates that a LEFT SHIFT is Present. MCH (RBC) [Entitic mass] 30.5 pg 27.0-32.0 [facility] Work Phone: Nucleated RBC/100 WBC (Bld) [Ratio] 0 % 0-5 [facility] Work Phone: MCHC Auto (RBC) [Mass/Vol]on 09-07-2021 MCHC (RBC) [Mass/Vol] 32.7 g/dL 32-36 [facility] Work Phone: Mucus LM Ql (Urine sed)on Mucus Ql (Urine sed) 0 SEEN /hpf [facility] Work Phone: Nitrite Test strip Ql (U)on 09-07-2021 Nitrite Ql (U) Negative Negative [facility] Work Phone: No Panel Informationon 09-07 Estimated Creatinine Clearance Calc 68.61 ml/min [facility] Work Phone: Estimated GFR (MDRD) Amer 105 mL/min >60 [facility] Work Phone: Comment on above: GFR Calc Estimated GFR (MDRD) Non-Af Amer 87 mL/min >60 [facility] Work Phone: Comment on above: Non- GFR Calc Platelets bldon 09-07-2021 Platelets (Bld) [#/Vol] 136 10*3/uL 150-450 [facility] Work Phone: Protein Test strip Ql (U)on 09-07-2021 Protein Ql (U) 15 mg/dl Negative [facility] Work Phone: Serum or plasma calcium nicole urement (mass/volume)on 09-07-2021 Calcium [Mass/Vol] 8.9 mg/dL 8.5-10.1 [facility] Work Phone: Serum or plasma creatinine m easurement (mass/volume)on 09-07-2021 Creatinine [Mass/Vol] 0.90 mg/dL 0.70-1.30 [facility] Work Phone: Comment on above: The validity of the calculated GFR & GFRAA in patients over 70 years has not been determined. Clinical correlation is essential. Serum or plasma urea nitroge n measurement (mass/volume)on 09-07-2021 Urea nitrogen [Mass/Vol] 18 mg/dL 7-18 [facility] Work Phone: Squamous epithelial cells de tection in urine sediment by light microscopyon 09-07-2021 Epithelial cells.squamous LM Ql (Urine sed) 0 SEEN /hpf 0-5 [facility] Work Phone: Thin prep Papanicolaou smear with manual screeningon 09-07-2021 Thin prep Papanicolaou smear with manual screening 5 5-15 [facility] Work Phone: Urine blood detectionon 08-14 RBC Ql (U) 50 /ul Negative [facility] Work Phone: RBC Ql (U) 5-10 SEEN /hpf 0-5 [facility] Work Phone: Urine clarityon 09-07-2021 Clarity (U) Sl. Cloudy Clear [facility] Work Phone: Urine color determinationon 09-07-2021 Color (U) Yellow Yellow [facility] Work Phone: Urine glucose detectionon Glucose Ql (U) Normal mg/dl Normal [facility] Work Phone: Urine leukocyte esterase det ection by dipstickon 09-07-2021 Leukocyte esterase Test strip Ql (U) 500 /ul Negative [facility] Work Phone: Urine pHon 09-07-2021 pH (U) 7.0 [pH] 5.0 - 8.0 [facility] Work Phone: Urine sediment bacteria coun t by microscopy (number/high power field)on 09-07-2021 Bacteria LM.HPF (Urine sed) [#/Area] 0 /[HPF] None Seen [facility] Work Phone: Urine specific gravity measu rementon 09-07-2021 Specific gravity (U) [Rel density] 1.010 1.002-1.03 0 [facility] Work Phone: Urobilinogen Auto test strip Ql (U)on 09-07-2021 Urobilinogen Ql (U) 1 mg/dl Normal [facility] Work Phone: Basophil percentageon 2021 Basophil percentage 50-100 SEEN /hpf 0-5 [facility] Work Phone: Bilirubin Test strip Ql (U)o n 09-06-2021 Bilirubin Ql (U) Negative Negative [facility] Work Phone: Ketones Test strip Ql (U)on 09-06-2021 Ketones Ql (U) 5 mg/dl Negative [facility] Work Phone: Mucus LM Ql (Urine sed)on Mucus Ql (Urine sed) 0 SEEN /hpf [facility] Work Phone: Nitrite Test strip Ql (U)on 09-06-2021 Nitrite Ql (U) Negative Negative [facility] Work Phone: Protein Test strip Ql (U)on 09-06-2021 Protein Ql (U) 30 mg/dl Negative [facility] Work Phone: Squamous epithelial cells de tection in urine sediment by light microscopyon 09-06-2021 Epithelial cells.squamous LM Ql (Urine sed) 0-5 SEEN /hpf 0-5 [facility] Work Phone: Urine blood detectionon 08-14 RBC Ql (U) 250 /ul Negative [facility] Work Phone: RBC Ql (U) 10-25 SEEN /hpf 0-5 [facility] Work Phone: Urine clarityon 09-06-2021 Clarity (U) Cloudy Clear [facility] Work Phone: Urine color determinationon 09-06-2021 Color (U) Yellow Yellow [facility] Work Phone: Urine glucose detectionon Glucose Ql (U) Normal mg/dl Normal [facility] Work Phone: Urine leukocyte esterase det ection by dipstickon 09-06-2021 Leukocyte esterase Test strip Ql (U) 500 /ul Negative [facility] Work Phone: Urine pHon 09-06-2021 pH (U) 6.0 [pH] 5.0 - 8.0 [facility] Work Phone: Urine sediment bacteria coun t by microscopy (number/high power field)on 09-06-2021 Bacteria LM.HPF (Urine sed) [#/Area] 4 /[HPF] None Seen [facility] Work Phone: Urine specific gravity measu rementon 09-06-2021 Specific gravity (U) [Rel density] 1.015 1.002-1.03 0 [facility] Work Phone: Urobilinogen Auto test strip Ql (U)on 09-06-2021 Urobilinogen Ql (U) Normal mg/dl Normal [facility] Work Phone: Basophil percentageon 2021 Chloride [Moles/Vol] 110 mmol/L 98-[address] [facility] Work Phone: Glucose [Mass/Vol] 99 mg/dL 74-106 [facility] Work Phone: Potassium [Moles/Vol] 4.3 mmol/L 3.5-5.1 [facility] Work Phone: Sodium [Moles/Vol] 139 mmol/L 136-145 [facility] Work Phone: Laboratory - Chemistry and C hemistry - challengeon 09-05-2021 CO2 [Moles/Vol] 23.0 mmol/L 21.0-32.0 [facility] Work Phone: Natriuretic peptide B (Bld) [Mass/Vol] 144.5 pg/mL 0-100 [facility] Work Phone: Urea nitrogen/Creatinine [Mass ratio] 27.2 mg/mg 10-20 [facility] Work Phone: No Panel Informationon 09-05 Estimated Creatinine Clearance Calc 70.17 ml/min [facility] Work Phone: Estimated GFR (MDRD) Amer 108 mL/min >60 [facility] Work Phone: Comment on above: GFR Calc Estimated GFR (MDRD) Non-Af Amer 89 mL/min >60 [facility] Work Phone: Comment on above: Non- GFR Calc Serum or plasma calcium nicole urement (mass/volume)on 09-05-2021 Calcium [Mass/Vol] 9.2 mg/dL 8.5-10.1 [facility] Work Phone: Serum or plasma creatinine m easurement (mass/volume)on 09-05-2021 Creatinine [Mass/Vol] 0.88 mg/dL 0.70-1.30 [facility] Work Phone: Comment on above: The validity of the calculated GFR & GFRAA in patients over 70 years has not been determined. Clinical correlation is essential. Serum or plasma urea nitroge n measurement (mass/volume)on 09-05-2021 Urea nitrogen [Mass/Vol] 24 mg/dL 7-18 [facility] Work Phone: Thin prep Papanicolaou smear with manual screeningon 09-05-2021 Thin prep Papanicolaou smear with manual screening 6 5-15 [facility] Work Phone: Absolute lymphocyte counton 09-01-2021 Lymphocytes Auto (Unsp spec) [#/Vol] 0.76 10*3/uL 0.83-4.51 [facility] Work Phone: Basophil percentageon 2021 Basophils/100 WBC (Bld) 0.3 % 0-1 [facility] Work Phone: Eosinophils/100 WBC (Bld) 1.3 % 0-5 [facility] Work Phone: Neutrophils (Bld) [#/Vol] 4.5 10*3/uL 2.0-7.7 [facility] Work Phone: Neutrophils/100 WBC (Bld) 75.1 % 47-70 [facility] Work Phone: WBC (Bld) [#/Vol] 6.1 10*3/uL 4.4-11.0 [facility] Work Phone: [phone] Blood erythrocytes count (nu mber/volume)on 09-01-2021 RBC (Bld) [#/Vol] 3.70 10*6/uL 4.6-6.2 [facility] Work Phone: Blood hemoglobin measurement (mass/volume)on 09-01-2021 Hemoglobin (Bld) [Mass/Vol] 11.4 g/dL 13.0-16.5 [facility] Work Phone: Blood lymphocytes/100 leukoc yteson 09-01-2021 Lymphocytes/100 WBC (Bld) 12.6 % 19-41 [facility] Work Phone: Blood monocytes/100 leukocyt eson 09-01-2021 Monocytes/100 WBC (Bld) 10.4 % 0-10 [facility] Work Phone: Blood platelet mean volumeon 09-01-2021 Platelet mean volume (Bld) [Entitic vol] 10.3 fL 6.2-12.0 [facility] Work Phone: Determination of erythrocyte mean corpuscular volume (MCV)on 09-01-2021 MCV (RBC) [Entitic vol] 91.4 fL 80-94 [facility] Work Phone: Hematocrit Auto (Bld) [Volum e fraction]on 09-01-2021 Hematocrit (Bld) [Volume fraction] 33.8 % 40-54 [facility] Work Phone: Laboratory - Hematology and Cell countson 09-01-2021 Erythrocyte distribution width (RBC) [Entitic vol] 50.6 fL 35.1-43.9 [facility] Work Phone: Erythrocyte distribution width (RBC) [Ratio] 15.1 % 11.6-14.6 [facility] Work Phone: Immature granulocytes/100 WBC (Bld) 0.300 % 0.0-0.9 [facility] Work Phone: Comment on above: IG% - Immature Granu locytes (promyelocytes, myelocytes and metamyelocytes) > 1% indicates that a LEFT SHIFT is Present. MCH (RBC) [Entitic mass] 30.8 pg 27.0-32.0 [facility] Work Phone: Nucleated RBC/100 WBC (Bld) [Ratio] 0 % 0-5 [facility] Work Phone: MCHC Auto (RBC) [Mass/Vol]on 09-01-2021 MCHC (RBC) [Mass/Vol] 33.7 g/dL 32-36 [facility] Work Phone: Platelets bldon 09-01-2021 Platelets (Bld) [#/Vol] 133 10*3/uL 150-450 [facility] Work Phone: Basophil percentageon 2021 Chloride [Moles/Vol] 109 mmol/L 98-[address] [facility] Work Phone: Glucose [Mass/Vol] 97 mg/dL 74-106 [facility] Work Phone: Potassium [Moles/Vol] 3.8 mmol/L 3.5-5.1 [facility] Work Phone: Sodium [Moles/Vol] 138 mmol/L 136-145 [facility] Work Phone: WBC (Bld) [#/Vol] 6.5 10*3/uL 4.4-11.0 [facility] Work Phone: Blood erythrocytes count (nu mber/volume)on 08-16-2021 RBC (Bld) [#/Vol] 3.85 10*6/uL 4.6-6.2 [facility] Work Phone: Blood hemoglobin measurement (mass/volume)on 08-16-2021 Hemoglobin (Bld) [Mass/Vol] 11.8 g/dL 13.0-16.5 [facility] Work Phone: Blood platelet mean volumeon 08-16-2021 Platelet mean volume (Bld) [Entitic vol] 10.3 fL 6.2-12.0 [facility] Work Phone: Determination of erythrocyte mean corpuscular volume (MCV)on 08-16-2021 MCV (RBC) [Entitic vol] 92.2 fL 80-94 [facility] Work Phone: Hematocrit Auto (Bld) [Volum e fraction]on 08-16-2021 Hematocrit (Bld) [Volume fraction] 35.5 % 40-54 [facility] Work Phone: Laboratory - Chemistry and C hemistry - challengeon 08-16-2021 CO2 [Moles/Vol] 23.0 mmol/L 21.0-32.0 [facility] Work Phone: Magnesium [Mass/Vol] 2.3 mg/dL 1.6-2.6 [facility] Work Phone: Urea nitrogen/Creatinine [Mass ratio] 42.2 mg/mg 10-20 [facility] Work Phone: Laboratory - Hematology and Cell countson 08-16-2021 Erythrocyte distribution width (RBC) [Entitic vol] 50.5 fL 35.1-43.9 [facility] Work Phone: Erythrocyte distribution width (RBC) [Ratio] 14.9 % 11.6-14.6 [facility] Work Phone: MCH (RBC) [Entitic mass] 30.6 pg 27.0-32.0 [facility] Work Phone: MCHC Auto (RBC) [Mass/Vol]on 08-16-2021 MCHC (RBC) [Mass/Vol] 33.2 g/dL 32-36 [facility] Work Phone: No Panel Informationon 08-16 Estimated Creatinine Clearance Calc 79.78 ml/min [facility] Work Phone: Estimated GFR (MDRD) Amer 120 mL/min >60 [facility] Work Phone: Comment on above: GFR Calc Estimated GFR (MDRD) Non-Af Amer 99 mL/min >60 [facility] Work Phone: Comment on above: Non- GFR Calc Platelets bldon 08-16-2021 Platelets (Bld) [#/Vol] 150 10*3/uL 150-450 [facility] Work Phone: Serum or plasma calcium nicole urement (mass/volume)on 08-16-2021 Calcium [Mass/Vol] 8.8 mg/dL 8.5-10.1 [facility] Work Phone: Serum or plasma creatinine m easurement (mass/volume)on 08-16-2021 Creatinine [Mass/Vol] 0.80 mg/dL 0.70-1.30 [facility] Work Phone: Comment on above: The validity of the calculated GFR & GFRAA in patients over 70 years has not been determined. Clinical correlation is essential. Serum or plasma urea nitroge n measurement (mass/volume)on 08-16-2021 Urea nitrogen [Mass/Vol] 34 mg/dL 7-18 [facility] Work Phone: Thin prep Papanicolaou smear with manual screeningon 08-16-2021 Thin prep Papanicolaou smear with manual screening 6 5-15 [facility] Work Phone: Lower GI hemoglobin IA Ql (S tl)on 08-09-2021 Stool Occult Blood (DEV) Positive [facility] Work Phone: Absolute lymphocyte counton 07-26-2021 Lymphocytes Auto (Unsp spec) [#/Vol] 1.06 10*3/uL 0.83-4.51 [facility] Work Phone: [phone] Basophil percentageon 2021 Basophil percentage 2.8 mg/dL 2.5-4.9 [facility] Work Phone: Basophils/100 WBC (Bld) 0.6 % 0-1 [facility] Work Phone: Bilirubin [Mass/Vol] 1.30 mg/dL 0.20-1.00 [facility] Work Phone: Comment on above: For patients on eltr ombopag therapy, use of Dimension [place] TBIL is not recommended. Eosinophils/100 WBC (Bld) 1.8 % 0-5 [facility] Work Phone: Neutrophils (Bld) [#/Vol] 6.5 10*3/uL 2.0-7.7 [facility] Work Phone: Neutrophils/100 WBC (Bld) 77.1 % 47-70 [facility] Work Phone: [phone] Protein [Mass/Vol] 6.8 g/dL 6.4-8.2 [facility] Work Phone: Blood lymphocytes/100 leukoc yteson 07-26-2021 Lymphocytes/100 WBC (Bld) 12.6 % 19-41 [facility] Work Phone: Blood monocytes/100 leukocyt eson 07-26-2021 Monocytes/100 WBC (Bld) 7.4 % 0-10 [facility] Work Phone: Laboratory - Chemistry and C hemistry - challengeon 07-26-2021 ALP [Catalytic activity/Vol] 83 U/L 45-117 [facility] Work Phone: ALT [Catalytic activity/Vol] 46 U/L 16-61 [facility] Work Phone: Globulin (S) [Mass/Vol] 3.4 g/dL 2.2-4.2 [facility] Work Phone: Laboratory - Hematology and Cell countson 07-26-2021 Immature granulocytes/100 WBC (Bld) 0.500 % 0.0-0.9 [facility] Work Phone: Comment on above: IG% - Immature Granu locytes (promyelocytes, myelocytes and metamyelocytes) > 1% indicates that a LEFT SHIFT is Present. Nucleated RBC/100 WBC (Bld) [Ratio] 0 % 0-5 [facility] Work Phone: Serum or plasma albumin nicole urement (mass/volume)on 07-26-2021 Albumin [Mass/Vol] 3.4 g/dL 3.2-5.0 [facility] Work Phone: [phone] Serum or plasma albumin/glob ulin mass ratioon 07-26-2021 Albumin/Globulin [Mass ratio] 1.0 {ratio} 0.9-2.4 [facility] Work Phone: Thin prep Papanicolaou smear with manual screeningon 07-26-2021 Thin prep Papanicolaou smear with manual screening 26 U/L 15-37 [facility] Work Phone: Basophil percentageon 2021 Basophil percentage 25-50 SEEN /hpf 0-5 [facility] Work Phone: Bilirubin Test strip Ql (U)o n 07-25-2021 Bilirubin Ql (U) 1 mg/dL Negative [facility] Work Phone: [phone] Comment on above: COLOR OF URINE MAY A FFECT DIPSTICK RESULTS. Culture, urineon 07-25-2021 Bacteria identified Cx Nom (U) Escherichia coli [facility] Work Phone: Ketones Test strip Ql (U)on 07-25-2021 Ketones Ql (U) 5 mg/dl Negative [facility] Work Phone: Mucus LM Ql (Urine sed)on Mucus Ql (Urine sed) 0 SEEN /hpf [facility] Work Phone: Nitrite Test strip Ql (U)on 07-25-2021 Nitrite Ql (U) Positive Negative [facility] Work Phone: Protein Test strip Ql (U)on 07-25-2021 Protein Ql (U) 30 mg/dl Negative [facility] Work Phone: Squamous epithelial cells de tection in urine sediment by light microscopyon 07-25-2021 Epithelial cells.squamous LM Ql (Urine sed) 0-5 SEEN /hpf 0-5 [facility] Work Phone: Urine blood detectionon 07-13 RBC Ql (U) 50 /ul Negative [facility] Work Phone: RBC Ql (U) 0-5 SEEN /hpf 0-5 [facility] Work Phone: Urine clarityon 07-25-2021 Clarity (U) Sl. Cloudy Clear [facility] Work Phone: Urine color determinationon 07-25-2021 Color (U) Yellow Yellow [facility] Work Phone: Urine glucose detectionon Glucose Ql (U) Normal mg/dl Normal [facility] Work Phone: Urine leukocyte esterase det ection by dipstickon 07-25-2021 Leukocyte esterase Test strip Ql (U) 500 /ul Negative [facility] Work Phone: Urine pHon 07-25-2021 pH (U) 6.0 [pH] 5.0 - 8.0 [facility] Work Phone: Urine sediment bacteria coun t by microscopy (number/high power field)on 07-25-2021 Bacteria LM.HPF (Urine sed) [#/Area] 1 /[HPF] None Seen [facility] Work Phone: Urine specific gravity measu rementon 07-25-2021 Specific gravity (U) [Rel density] 1.020 1.002-1.03 0 [facility] Work Phone: Urobilinogen Auto test strip Ql (U)on 07-25-2021 Urobilinogen Ql (U) 8 mg/dl Normal [facility] Work Phone: LAVENDER TOP TUBEon 07-25-19 [facility] CBC,PLATELETSon 07-23-2021 Hematocrit (Bld) [Volume fraction] 40.3 % Normal 39.6-48.8 [facility] Comment on above: Performed By: #### H EMO #### [facility] (DEFAULT) [address] [place] [address] Hemoglobin (Bld) [Mass/Vol] 13.9 g/dL Normal 13.4-16.8 [facility] Comment on above: Performed By: #### H EMOGC #### [facility] (DEFAULT) [address] [place] [address] MCV (RBC) [Entitic vol] 88.0 fL Normal 79.0-94.5 [facility] Comment on above: Performed By: #### H EMOGC #### [facility] (DEFAULT) [address] [place] [address]10 Mean Cell Hgb 30.3 pg Normal 26.1-33.3 [facility] Comment on above: Performed By: #### H EMOGC #### [facility] (DEFAULT) [address] [place] [address]8469 Mean Cell Hgb Conc 34.5 g/dL Normal 31.9-36.5 [facility] Comment on above: Performed By: #### H EMOGC #### [facility] (DEFAULT) [address] [place] [address] Platelet mean volume (Bld) [Entitic vol] 10.5 fL Normal 8.7-12.3 [facility] Comment on above: Performed By: #### H EMO #### [facility] (DEFAULT) [address] [place] [address] Platelets (Bld) [#/Vol] 185 10*3/uL Normal 146-337 [facility] Comment on above: Performed By: #### H EMO #### [facility] (DEFAULT) [address] [place] [address] 73732 RBC (Bld) [#/Vol] 4.58 10*6/uL Normal 4.38-5.83 [facility] Comment on above: Performed By: #### H EMO #### [facility] (DEFAULT) [address] [place] [address] RBC Distribution 14.1 % Normal 10.9-14.3 [facility] Comment on above: Performed By: #### H EMO #### [facility] (DEFAULT) [address] [place] [address] WBC (Bld) [#/Vol] 8.34 10*3/uL Normal 3.73-10.10 [facility] Comment on above: Performed By: #### H EMO #### [facility] (DEFAULT) [address] [place] [address] Erythrocyte distribution width (RBC) [Ratio] 14.1 % 10.9 - 14.3 % [facility] Hematocrit (Bld) [Volume fraction] 40.3 % 39.6 - 48.8 % [facility] Hemoglobin (Bld) [Mass/Vol] 13.9 g/dL 13.4 - 16.8 g/dL [facility] Interpretation and review of laboratory results Normal [facility] MCH (RBC) [Entitic mass] 30.3 pg 26.1 - 33.[address] [facility] MCHC (RBC) [Mass/Vol] 34.5 g/dL 31.9 - 36.5 g/dL [facility] MCV (RBC) [Entitic vol] 88.0 fL 79.0 - 94.[address] [facility] Platelet mean volume (Bld) [Entitic vol] 10.5 fL 8.7 - 12.[address] [facility] Platelets (Bld) [#/Vol] 185 10*3/uL 146 - 337 K/uL [facility] RBC (Bld) [#/Vol] 4.58 10*6/uL [facility] WBC (Bld) [#/Vol] 8.34 10*3/uL 3.73 - 10.10 K/uL [facility] CHEM 7 (LYTES,BUN,CREA,GLUC) on 07-23-2021 Anion gap [Moles/Vol] 11 mmol/L Normal 7-17 [facility] Comment on above: Performed By: #### A 1CB #### [facility] (DEFAULT) [address] [address] Chloride [Moles/Vol] 111 mmol/L High 98-108 [facility] Comment on above: Performed By: #### A 1CB #### [facility] (DEFAULT) [address] [address] CO2 [Moles/Vol] 22 mmol/L Normal 21-31 [facility] Comment on above: Performed By: #### A 1CB #### [facility] (DEFAULT) [address] [address] Creatinine [Mass/Vol] 0.90 mg/dL Normal 0.70-1.30 [facility] Comment on above: Performed By: #### A 1CB #### [facility] (DEFAULT) [address] [address] GFR/1.73 sq M.predicted among non-blacks MDRD (S/P/Bld) [Vol rate/Area] 89 mL/min/{1.73_m2} Normal >=60 [facility] Comment on above: Result Comment: Repo rted eGFR is based on the CKD-EPI 2020 equation using creatinine, age, and sex. Performed By: #### A 1CB #### [facility] (DEFAULT) [address] [place] [address] Glucose [Mass/Vol] 84 mg/dL Normal 70-99 [facility] Comment on above: Performed By: #### A 1CB #### [facility] (DEFAULT) [address] [place] [address] Osmolality [Osmolality] 295 mosm/kg Normal 278-305 [facility] Comment on above: Performed By: #### A 1CB #### [facility] (DEFAULT) [address] [place] [address]69 Potassium [Moles/Vol] 3.6 mmol/L Normal 3.5-5.0 [facility] Comment on above: Performed By: #### A 1CB #### [facility] (DEFAULT) [address] [place] [address] Sodium [Moles/Vol] 140 mmol/L Normal 135-145 [facility] Comment on above: Performed By: #### A 1CB #### [facility] (DEFAULT) [address] [place] [address] Urea nitrogen [Mass/Vol] 23 mg/dL Normal 7-25 [facility] Comment on above: Performed By: #### A 1CB #### [facility] (DEFAULT) [address] [place] [address] Urea nitrogen/Creatinine [Mass ratio] 26 mg/mg Normal [facility] Comment on above: Performed By: #### A 1CB #### [facility] (DEFAULT) [address] [place] [address] Anion gap [Moles/Vol] 11 mmol/L 7 - 17 mmol/L [facility] Chloride [Moles/Vol] 111 mmol/L High 98 - 10 8 mmol/L [facility] CO2 [Moles/Vol] 22 mmol/L 21 - 31 mmol/L [facility] Creatinine [Mass/Vol] 0.90 mg/dL 0.70 - 1.30 mg/dL [facility] GFR/1.73 sq M.predicted CKD-EPI (S/P/Bld) [Vol rate/Area] 89 >=60 mL/min/1.[address] [facility] Comment on above: Reported eGFR is bas ed on the CKD-EPI 2020 equation using creatinine, age, and sex. Glucose [Mass/Vol] 84 mg/dL 70 - 99 mg/dL [facility] Osmolality Calc [Osmolality] 295 [facility] Potassium [Moles/Vol] 3.6 mmol/L 3.5 - 5.0 mmol/L [facility] Sodium [Moles/Vol] 140 mmol/L 135 - 145 mmol/L [facility] Urea nitrogen [Mass/Vol] 23 mg/dL 7 - 25 mg/dL [facility] Urea nitrogen/Creatinine [Mass ratio] 26 mg/mg [facility] DEVICE EVALUATION (SCANNED)o n 07-23-2021 [facility] HEPATIC FUNCTION PANELon Albumin [Mass/Vol] 4.0 g/dL Normal 3.5-5.0 [facility] Comment on above: Performed By: #### A 1CB #### [facility] (DEFAULT) [address] [place] [address] ALP [Catalytic activity/Vol] 64 U/L Normal 32-126 [facility] Comment on above: Performed By: #### A 1CB #### [facility] (DEFAULT) [address] [place] [address] ALT [Catalytic activity/Vol] 45 U/L Normal 10-52 [facility] Comment on above: Performed By: #### A 1CB #### [facility] (DEFAULT) [address] [place] [address]12 AST [Catalytic activity/Vol] 33 U/L Normal 10-39 [facility] Comment on above: Performed By: #### A 1CB #### [facility] (DEFAULT) [address] [place] [address] Bilirubin [Mass/Vol] 1.3 mg/dL Normal <1.5 [facility] Comment on above: Performed By: #### A 1CB #### [facility] (DEFAULT) [address] [place] [address] Bilirubin.indirect [Mass/Vol] 0.3 mg/dL High <0.3 [facility] Comment on above: Performed By: #### A 1CB #### [facility] (DEFAULT) [address] [place] [address]52 Protein [Mass/Vol] 6.7 g/dL Normal 6.4-8.3 [facility] Comment on above: Performed By: #### A 1CB #### [facility] (DEFAULT) [address] [place] [address]37 Albumin [Mass/Vol] 4.0 g/dL 3.5 - 5.0 g/dL [facility] ALP [Catalytic activity/Vol] 64 U/L 32 - 126 U/L [facility] ALT [Catalytic activity/Vol] 45 U/L 10 - 52 U/L [facility] AST [Catalytic activity/Vol] 33 U/L 10 - 39 U/L [facility] Bilirubin [Mass/Vol] 1.3 mg/dL <1.5 [facility] Bilirubin.direct [Mass/Vol] 0.3 mg/dL High <0.3 [facility] Protein [Mass/Vol] 6.7 g/dL 6.4 - 8.3 g/dL [facility] LT BLUE TOP TUBEon 2 [facility] No Panel Informationon 07-23 Interpretation and review of laboratory results Abnormal [facility] PT,INR,PTTon 07-23-2021 aPTT Coag (Bld) [Time] 28.6 s Normal 24.0-34.3 [facility] Comment on above: Result Comment: Resu lts inconsistent with previous results Performed By: #### U R #### [facility] (DEFAULT) [address] [place] [address] INR Coag (PPP) [Relative time] 1.2 {INR} High 0.9-1.1 [facility] Comment on above: Performed By: #### U R #### [facility] (DEFAULT) [address] [place] [address] PT Coag (PPP) [Time] 15.2 s High 11.9-14.2 [facility] Comment on above: Performed By: #### U R #### [facility] (DEFAULT) [address] [place] [address] PT,INR,PTTOrdered By: Jane Henriquez on 07-23-2021 aPTT Coag (PPP) [Time] 28.6 s [facility] Comment on above: Results inconsistent with previous results INR Coag (Bld) [Relative time] 1.2 {INR} High [facility] Interpretation and review of laboratory results Abnormal [facility] PT Coag (PPP) [Time] 15.2 s High [facility] CALCIUMon 07-22-2021 Calcium [Mass/Vol] 8.7 mg/dL Normal 8.6-10.5 [facility] Comment on above: Performed By: #### U R #### [facility] (DEFAULT) [address] [place] [address] Calcium [Mass/Vol] 8.7 mg/dL 8.6 - 10. 5 mg/dL [facility] CBC AND ELECTRONIC DIFFon Basophils (Bld) [#/Vol] 0.06 10*3/uL Normal 0.00-0.09 [facility] Comment on above: Performed By: #### L [id number], [id number] #### [facility] (DEFAULT) [address] [place] [address]169 Basophils/100 WBC (Bld) 0.7 % Normal O [facility] Comment on above: Performed By: #### Say [id number], [id number] #### [facility] (DEFAULT) [address] [address] DIFF STATUS Electronic Differential Normal [facility] Comment on above: Performed By: #### Say [id number], [id number] #### [facility] (DEFAULT) [address] [place] [address] Eosinophils (Bld) [#/Vol] 0.18 10*3/uL Normal 0.00-0.48 [facility] Comment on above: Performed By: #### Say SEGOVIA [id number] #### [facility] (DEFAULT) [address] [address] Eosinophils/100 WBC (Bld) 2.1 % Normal [facility] Comment on above: Performed By: #### Say SEGOVIA [id number] #### [facility] (DEFAULT) [address] [address] Hematocrit (Bld) [Volume fraction] 42.1 % Normal 39.6-48.8 [facility] Comment on above: Performed By: #### Say [id number], [id number] #### [facility] (DEFAULT) [address] [address] Hemoglobin (Bld) [Mass/Vol] 14.0 g/dL Normal 13.4-16.8 [facility] Comment on above: Performed By: #### Say [id number], [id number] #### [facility] (DEFAULT) [address] [address] Immature Grans % 0.6 % Normal [facility] Comment on above: Performed By: #### Say [id number], [id number] #### [facility] (DEFAULT) [address] [address] Immature Grans Absolute 0.05 K/uL Normal <=0.08 O [facility] Comment on above: Performed By: #### L [id number], [id number] #### [facility] (DEFAULT) [address] [place] [address] Lymphocytes (Bld) [#/Vol] 1.10 10*3/uL Normal 0.83-3.57 [facility] Comment on above: Performed By: #### L [id number], [id number] #### [facility] (DEFAULT) [address] [place] [address] Lymphocytes/100 WBC (Bld) 13.1 % Normal [facility] Comment on above: Performed By: #### L [id number], [id number] #### [facility] (DEFAULT) [address] [address] MCV (RBC) [Entitic vol] 90.3 fL Normal 79.0-94.5 [facility] Comment on above: Performed By: #### L [id number], [id number] #### [facility] (DEFAULT) [address] [place] [address]276 Mean Cell Hgb 30.0 pg Normal 26.1-33.3 [facility] Comment on above: Performed By: #### L [id number], [id number] #### [facility] (DEFAULT) [address] [address] Mean Cell Hgb Conc 33.3 g/dL Normal 31.9-36.5 [facility] Comment on above: Performed By: #### L [id number], [id number] #### [facility] (DEFAULT) [address] [place] [address] Monocytes (Bld) [#/Vol] 0.61 10*3/uL Normal 0.24-0.93 [facility] Comment on above: Performed By: #### L [id number], [id number] #### [facility] (DEFAULT) [address] [address] Monocytes/100 WBC (Bld) 7.3 % Normal O [facility] Comment on above: Performed By: #### Say [id number], [id number] #### [facility] (DEFAULT) [address] [place] [address]365 Nucleated RBC 0.0 /100 WBC Normal <=0.2 [facility] Comment on above: Performed By: #### Say [id number], [id number] #### [facility] (DEFAULT) [address] [place] [address] Platelet mean volume (Bld) [Entitic vol] 11.0 fL Normal 8.7-12.3 [facility] Comment on above: Performed By: #### Say [id number], [id number] #### [facility] (DEFAULT) [address] [address] Platelets (Bld) [#/Vol] 183 10*3/uL Normal 146-337 [facility] Comment on above: Performed By: #### Say [id number], [id number] #### [facility] (DEFAULT) [address] [address] RBC (Bld) [#/Vol] 4.66 10*6/uL Normal 4.38-5.83 [facility] Comment on above: Performed By: #### Say [id number], [id number] #### [facility] (DEFAULT) [address] [address] RBC Distribution 14.4 % High 10.9-14.3 [facility] Comment on above: Performed By: #### L [id number], [id number] #### [facility] (DEFAULT) [address] [address] Segs + Bands Auto 76.2 % Normal [facility] Comment on above: Performed By: #### L [id number], [id number] #### [facility] (DEFAULT) [address] [address] Segs + Bands,Absolute Auto 6.41 K/uL High 1.57-6.19 [facility] Comment on above: Performed By: #### L [id number], [id number] #### [facility] (DEFAULT) [address] [place] [address] WBC (Bld) [#/Vol] 8.41 10*3/uL Normal 3.73-10.10 [facility] Comment on above: Performed By: #### L [id number], [id number] #### [facility] (DEFAULT) [address] [address] Basophils (Bld) [#/Vol] 0.06 10*3/uL 0.00 - 0.09 K/uL [facility] Basophils/100 WBC (Bld) 0.7 % [facility] Differential cell count method Nom (Bld) Electronic Differential [facility] Eosinophils (Bld) [#/Vol] 0.18 10*3/uL 0.00 - 0.48 K/uL [facility] Eosinophils/100 WBC (Bld) 2.1 % [facility] Erythrocyte distribution width (RBC) [Ratio] 14.4 % High 10.9 - 14.3 % [facility] Hematocrit (Bld) [Volume fraction] 42.1 % 39.6 - 48.8 % [facility] Hemoglobin (Bld) [Mass/Vol] 14.0 g/dL 13.4 - 16.8 g/dL [facility] Immature granulocytes (Bld) [#/Vol] 0.05 10*3/uL <=0.08 [facility] Immature granulocytes/100 WBC (Bld) 0.6 % [facility] Interpretation and review of laboratory results Abnormal [facility] Lymphocytes (Bld) [#/Vol] 1.10 10*3/uL 0.83 - 3.57 K/uL [facility] Lymphocytes/100 WBC (Bld) 13.1 % [facility] MCH (RBC) [Entitic mass] 30.0 pg 26.1 - 33.[address] [facility] MCHC (RBC) [Mass/Vol] 33.3 g/dL 31.9 - 36.5 g/dL [facility] MCV (RBC) [Entitic vol] 90.3 fL 79.0 - 94.[address] [facility] Monocytes (Bld) [#/Vol] 0.61 10*3/uL 0.24 - 0.93 K/uL [facility] Monocytes/100 WBC (Bld) 7.3 % [facility] Neutrophils (Bld) [#/Vol] 6.41 10*3/uL High 1.57 - 6.19 K/uL [facility] Nucleated RBC/100 WBC (Bld) [Ratio] 0.0 % <=0.2 /[address] [facility] Platelet mean volume (Bld) [Entitic vol] 11.0 fL 8.7 - 12.[address] [facility] Platelets (Bld) [#/Vol] 183 10*3/uL 146 - 337 K/uL [facility] RBC (Bld) [#/Vol] 4.66 10*6/uL [facility] Segmented neutrophils/100 WBC (Bld) 76.2 % [facility] WBC (Bld) [#/Vol] 8.41 10*3/uL 3.73 - 10.10 K/uL [facility] CHM 7 - EDon 07-22-2021 Anion gap [Moles/Vol] 12 mmol/L Normal 7-17 [facility] Comment on above: Performed By: #### U R #### [facility] (DEFAULT) [address] [place] [address] Chloride [Moles/Vol] 109 mmol/L High 98-108 [facility] Comment on above: Performed By: #### U R #### [facility] (DEFAULT) [address] [place] [address] CO2 [Moles/Vol] 22 mmol/L Normal 21-31 [facility] Comment on above: Performed By: #### U R #### [facility] (DEFAULT) [address] [address] Creatinine [Mass/Vol] 1.03 mg/dL Normal 0.70-1.30 [facility] Comment on above: Performed By: #### U R #### [facility] (DEFAULT) [address] [address] GFR/1.73 sq M.predicted among non-blacks MDRD (S/P/Bld) [Vol rate/Area] 76 mL/min/{1.73_m2} Normal >=60 [facility] Comment on above: Result Comment: Repo rted eGFR is based on the CKD-EPI 2020 equation using creatinine, age, and sex. Performed By: #### U R #### [facility] (DEFAULT) [address] [address] Glucose [Mass/Vol] 99 mg/dL Normal 70-99 [facility] Comment on above: Performed By: #### U R #### [facility] (DEFAULT) [address] [address] Osmolality [Osmolality] 297 mosm/kg Normal 278-305 [facility] Comment on above: Performed By: #### U R #### U [facility] (DEFAULT) [address] [place] [address] Potassium [Moles/Vol] 4.3 mmol/L Normal 3.5-5.0 [facility] Comment on above: Performed By: #### U R #### U [facility] (DEFAULT) [address] [address] Sodium [Moles/Vol] 139 mmol/L Normal 135-145 [facility] Comment on above: Performed By: #### U R #### U [facility] (DEFAULT) [address] [place] [address] Urea nitrogen [Mass/Vol] 27 mg/dL High 7-25 [facility] Comment on above: Performed By: #### U R #### [facility] (DEFAULT) [address] [place] [address] Urea nitrogen/Creatinine [Mass ratio] 26 mg/mg Normal [facility] Comment on above: Performed By: #### U R #### [facility] (DEFAULT) [address] [place] [address] Anion gap [Moles/Vol] 12 mmol/L 7 - 17 mmol[facility]L [facility] Chloride [Moles/Vol] 109 mmol/L High 98 - 10 8 mmol/L [facility] CO2 [Moles/Vol] 22 mmol/L 21 - 31 mmol/L [facility] Creatinine [Mass/Vol] 1.03 mg/dL 0.70 - 1.30 mg/dL [facility] GFR/1.73 sq M.predicted CKD-EPI (S/P/Bld) [Vol rate/Area] 76 >=60 mL/min/1.[address] [facility] Comment on above: Reported eGFR is bas ed on the CKD-EPI 2020 equation using creatinine, age, and sex. Glucose [Mass/Vol] 99 mg/dL 70 - 99 mg/dL [facility] Osmolality Calc [Osmolality] 297 [facility] Potassium [Moles/Vol] 4.3 mmol/L 3.5 - 5.0 mmol/L [facility] Sodium [Moles/Vol] 139 mmol/L 135 - 145 mmol/L [facility] Urea nitrogen [Mass/Vol] 27 mg/dL High 7 - 25 mg/dL [facility] Urea nitrogen/Creatinine [Mass ratio] 26 mg/mg [facility] CT ABDOMEN/PELVIS WITHOUT CO NTRASTon 07-22-2021 CT [...] findings in the abdomen or pelvis. Normal [facility] CT Abdomen and Pelvis WO con [...] acute findings in the abdomen or pelvis. [facility] Radiology Study observation (narrative) [facility] CT Abdomen and Pelvis WO con trastOrdered By: Jeanine Chamberlain on 07-22-2021 [facility] Work Phone: CT Head limitedon 07-22-2021 IMPRESSION: 1. Areas of relative hyperdensity in the left MCA and LEASING AGENT territory involving the left basal ganglia, left [...] relative hyperdensity in the left MCA and LEASING AGENT territory involving the left basal ganglia, left [...] relative hyperdensity in the left MCA and LEASING AGENT territory involving the left basal ganglia, left [...] relative hyperdensity in the left MCA and LEASING AGENT territory involving the left basal ganglia, left [...] I have reviewed and approved this report. [facility] Radiology Study observation (narrative) [facility] CT Head limitedOrdered By: Gamaliel Neves on 07-22-2021 [facility] Work Phone: CT STROKE HEAD-STROKE ALERT ONLYon [...] relative hyperdensity in the left MCA and LEASING AGENT territory involving the left basal ganglia, left [...] relative hyperdensity in the left MCA and LEASING AGENT territory involving the left basal ganglia, left [...] have reviewed and approved this report. Normal [facility] GLUCOSE POCon 07-22-2021 Glucose [Mass/Vol] 96 mg/dL 70 - 99 mg/dL [facility] Poc Sample Type CAPBL [facility] Test performed at ad dress of the patient encounter. [facility] GOLD TOP TUBEon 07-22-2021 [facility] Glucose Glucometer (BldC) [M ass/Vol]on 07-22-2021 Glucose [Mass/Vol] 103 mg/dL 74-106 [facility] Work Phone: Comment on above: MANAGEMENT OF PATIEN T CARE PER NURSING PROTOCOL HEPATIC FUNCTION PANELon Albumin [Mass/Vol] 4.1 g/dL Normal 3.5-5.0 [facility] Comment on above: Performed By: #### U R #### [facility] (DEFAULT) [address] [place] [address] ALP [Catalytic activity/Vol] 62 U/L Normal 32-126 [facility] Comment on above: Performed By: #### U R #### U [facility] (DEFAULT) [address] [place] [address] ALT [Catalytic activity/Vol] 48 U/L Normal 10-52 [facility] Comment on above: Performed By: #### U R #### U [facility] (DEFAULT) [address] [place] [address] AST [Catalytic activity/Vol] 40 U/L High 10-39 [facility] Comment on above: Performed By: #### U R #### U [facility] (DEFAULT) [address] [place] [address] Bilirubin [Mass/Vol] 1.2 mg/dL Normal <1.5 [facility] Comment on above: Performed By: #### U R #### [facility] (DEFAULT) [address] [place] [address] Bilirubin.indirect [Mass/Vol] 0.2 mg/dL Normal <0.3 [facility] Comment on above: Performed By: #### U R #### U [facility] (DEFAULT) [address] [place] [address] Protein [Mass/Vol] 6.9 g/dL Normal 6.4-8.3 [facility] Comment on above: Performed By: #### U R #### [facility] (DEFAULT) [address] [place] [address] Albumin [Mass/Vol] 4.1 g/dL 3.5 - 5.0 g/dL [facility] ALP [Catalytic activity/Vol] 62 U/L 32 - 126 U/L [facility] ALT [Catalytic activity/Vol] 48 U/L 10 - 52 U/L [facility] AST [Catalytic activity/Vol] 40 U/L High 10 - 39 U/L [facility] Bilirubin [Mass/Vol] 1.2 mg/dL <1.5 [facility] Bilirubin.direct [Mass/Vol] 0.2 mg/dL <0.3 [facility] Protein [Mass/Vol] 6.9 g/dL 6.4 - 8.3 g/dL [facility] HIGH SENSITIVITY TROPONIN I - SINGLE ORDERon 07-22-2021 hs-Troponin I 10 ng/L Normal <53 [facility] Comment on above: Order Comment: Acute Coronary Syndrome (ACS): Initial Evaluation and Management:[email or web address] Performed By: #### [facility] #### [facility] (DEFAULT) [address] [place] [address] Interpretation and review of laboratory results Normal [facility] Troponin I.cardiac DL <= 0.01 ng/mL [Mass/Vol] 10 ng/L <53 [facility] LACTATE, INITIALon 2 0 Hour Lacate 0.9 mmol/L Normal 0.5-1.6 [facility] Comment on above: Performed By: #### L ABLACTINT, [id number] #### [facility] (DEFAULT) [address] [place] [address] Interpretation and review of laboratory results Normal [facility] Lactate [Moles/Vol] 0.9 mmol/L 0.5 - 1. 6 mmol/L [facility] LIPASEon 07-22-2021 Lipase [Catalytic activity/Vol] 37 U/L Normal 11-82 [facility] Comment on above: Performed By: #### U R #### [facility] (DEFAULT) [address] [place] [address] Lipase [Catalytic activity/Vol] 37 U/L 11 - 82 U/L [facility] MAGNESIUMon 07-22-2021 Magnesium [Mass/Vol] 2.0 mg/dL Normal 1.6-2.6 [facility] Comment on above: Performed By: #### U R #### [facility] (DEFAULT) [address] [place] [address] Magnesium [Mass/Vol] 2.0 mg/dL 1.6 - 2 .6 mg/dL [facility] No Panel Informationon 07-22 [facility] Interpretation and review of laboratory results Abnormal [facility] Interpretation and review of laboratory results Normal [facility] PHOSPHATE, INORGANICon 07-22 Phosphorous 3.1 mg/dL Normal 2.2-4.6 [facility] Comment on above: Performed By: #### U R #### [facility] (DEFAULT) [address] [place] [address] Phosphate [Mass/Vol] 3.1 mg/dL 2.2 - 4 .6 mg/dL [facility] PTINR-STROKEon 07-22-2021 INR Coag (PPP) [Relative time] 1.2 {INR} High 0.9-1.1 [facility] Comment on above: Performed By: #### Say [id number], [id number] #### [facility] (DEFAULT) [address] [place] [address] PT Coag (PPP) [Time] 14.5 s High 11.9-14.2 [facility] Comment on above: Performed By: #### Say [id number], [id number] #### [facility] (DEFAULT) [address] [place] [address] INR Coag (Bld) [Relative time] 1.2 {INR} High [facility] Interpretation and review of laboratory results Abnormal [facility] PT Coag (PPP) [Time] 14.5 s High [facility] PTTon 07-22-2021 aPTT Coag (Bld) [Time] 23.2 s Low 24.0-34.[address] [facility] Comment on above: Performed By: #### L [id number], [id number] #### [facility] (DEFAULT) [address] [place] [address] PTTOrdered By: Ahmet Bay er on 07-22-2021 aPTT Coag (PPP) [Time] 23.2 s Low OS U [facility] Interpretation and review of laboratory results Abnormal [facility] Portable XR Chest Views APon 07-22-2021 IMPRESSION: [...] No dense consolidation. RADIOLOGY Jacki Sharp [facility] - 07/22/2021 EXAM: XR CHEST AP PORTABLE ED, 07/22/2021 15:21 PM COMPARISON: Compared to February 28, 2015 CLINICAL INDICATIONS: AMS FINDINGS: (Adequate technique) Implanted Devices: Unchanged pacemaker device and partially visualized cervical spine fixation hardware. Thorax: Cardiomegaly. No pneumothorax. No dense consolidation. IMPRESSION IMPRESSION: Cardiomegaly. No acute process. I personally viewed and interpreted these images and I have reviewed and approved this report. [facility] Radiology Study observation (narrative) [facility] Portable XR Chest Views APOr dered By: Jacki Sharp on 07-22-2021 [facility] Work Phone: T4 FREEon 07-22-2021 Free T4 [Mass/Vol] 1.19 ng/dL Normal 0.89-1.76 [facility] Comment on above: Performed By: #### [facility] #### [facility] (DEFAULT) [address] [place] [address] Free T4 [Mass/Vol] 1.19 ng/dL 0.89 - 1.76 ng/dL [facility] Interpretation and review of laboratory results Normal [facility] TSH W/FT4 REFLEXon 2 TSH 5.620 uIU/mL High 0.550-4.78 0 [facility] Comment on above: Performed By: #### [facility] #### [facility] (DEFAULT) [address] [address] Interpretation and review of laboratory results Abnormal [facility] TSH Qn 5.620 m[IU]/L High [facility] URINALYSISon 07-22-2021 Appearance (U) Clear Normal Clear [facility] Comment on above: Performed By: #### Say SEGOVIA [id number] #### [facility] (DEFAULT) [address] [address] Bacteria ABSENT Normal ABSENT [facility] Comment on above: Performed By: #### Say SEGOVIA [id number] #### [facility] (DEFAULT) [address] [place] [address] Blood Urine Small Abnormal Negative [facility] Comment on above: Performed By: #### Say SEGOVIA [id number] #### [facility] (DEFAULT) [address] [address] Color (U) Yellow Normal Yellow [facility] Comment on above: Performed By: #### Say SEGOVIA [id number] #### [facility] (DEFAULT) [address] [place] [address] Glucose Ql (U) Negative Normal Negative [facility] Comment on above: Performed By: #### Say SEGOVIA [id number] #### [facility] (DEFAULT) [address] [address] Ketones Ql (U) Negative Normal Negative [facility] Comment on above: Performed By: #### Say SEGOVIA [id number] #### [facility] (DEFAULT) [address] [address] Leukocyte esterase Test strip Ql (U) Small Abnormal Negative [facility] Comment on above: Performed By: #### Say SEGOVIA [id number] #### [facility] (DEFAULT) [address] [address] Nitrites Urine Negative Normal Negative [facility] Comment on above: Performed By: #### Say SEGOVIA [id number] #### [facility] (DEFAULT) [address] [address] pH (U) 6.0 [pH] Normal 5.0-7.0 [facility] Comment on above: Performed By: #### Say SEGOVIA [id number] #### [facility] (DEFAULT) [address] [address] Protein Urine Negative Normal Negative [facility] Comment on above: Performed By: #### Say SEGOVIA [id number] #### [facility] (DEFAULT) [address] [address] RBC Urine 0-2 Normal 0-2 [facility] Comment on above: Performed By: #### Say SEGOVIA [id number] #### [facility] (DEFAULT) [address] [address] Specific Sunol Urine 1.010 Normal 1.001 -1.03 5 [facility] Comment on above: Performed By: #### Say SEGOVIA [id number] #### [facility] (DEFAULT) [address] [place] [address] Squamous/Epithelial Cells 0/hpf = 0+ Normal 1/hpf = 1+, 2-5/hpf = 2+, 0/hpf = 0+, ABSENT [facility] Comment on above: Performed By: #### L [id number], [id number] #### [facility] (DEFAULT) [address] [place] [address] Urobilinogen Urine 2.0 E.U./dL Abnormal 0.2 E.U/dL, 1.0 E.U/dL [facility] Comment on above: Performed By: #### L [id number], [id number] #### [facility] (DEFAULT) [address] [place] [address] WBC Urine 6-9 Abnormal 0-5 [facility] Comment on above: Performed By: #### L [id number], [id number] #### [facility] (DEFAULT) [address] [place] [address] Appearance (U) Clear Clear [facility] Bacteria LM Ql (Urine sed) ABSENT ABSENT [facility] Color (U) Yellow Yellow [facility] Epithelial cells.squamous LM Ql (Urine sed) 0/hpf = 0+ 1/hpf = 1+, 2-5/hpf = 2+, 0/hpf = 0+, ABSENT [facility] Glucose Test strip (U) [Mass/Vol] Negative Negative [facility] Interpretation and review of laboratory results Abnormal [facility] Ketones (U) [Mass/Vol] Negative Negative [facility] Leukocyte esterase Test strip Ql (U) Small Abnormal Negative [facility] Nitrite Ql (U) Negative Negative [facility] pH (U) 6.0 [pH] 5.0 - 7.0 [facility] Protein (U) [Mass/Vol] Negative Negative [facility] RBC (U) [#/Vol] Small Abnormal Negative [facility] RBC LM.HPF (Urine sed) [#/Area] 0-2 0 - 2 /HPF [facility] Specific gravity (U) [Rel density] 1.010 [facility] Urobilinogen (U) [Mass/Vol] 2.0 E.U./dL Abnormal 0.2 E.U/dL, 1.0 E.U/dL [facility] WBC LM.HPF (Urine sed) [#/Area] 6-9 Abnormal 0 - 5 /HPF [facility] URINE CULTUREon 07-22-2021 Amikacin [Susceptibility] <=2 Invalid Interpretation Code [facility] Comment on above: Order Comment: For [...] is considered significant. Performed By: #### L [id number], [id number] #### [facility] (DEFAULT) [address] [address] Cefepime [Susceptibility] 8 ug/mL Invalid Interpretation Code [facility] Comment on above: Order Comment: For i ndwelling catheters, specimen collection is acceptable on catheter day 1 and 2 only. Hoep top vacutainer. Urine must be to the fill line to process (4mls). If minimum volume, send urine in a yellow top vacutainer tube.For straight cath urines, a cut off of equal or greater than 10,000 CFU/mL is considered significant. Performed By: #### L [id number], [id number] #### [facility] (DEFAULT) [address] [address] Ciprofloxacin [Susceptibility] 1 ug/mL Significant change up [facility] Comment on above: Order Comment: For [...] is considered significant. Performed By: #### L [id number], [id number] #### [facility] (DEFAULT) [address] [address] Gentamicin [Susceptibility] <=1 Invalid Interpretation Code [facility] Comment on above: Order Comment: For [...] is considered significant. Performed By: #### L [id number], [id number] #### [facility] (DEFAULT) [address] [address] Piperacillin+Tazobactam [Susceptibility] 32 ug/mL Significant change up [facility] Comment on above: Order Comment: For [...] is considered significant. Performed By: #### L [id number], [id number] #### [facility] (DEFAULT) [address] [place] [address] Tobramycin [Susceptibility] <=1 Invalid Interpretation Code [facility] Comment on above: Order Comment: For [...] is considered significant. Performed By: #### L [id number], [id number] #### [facility] (DEFAULT) [address] [place] [address] VENOUS BLOOD GASon 2 Base Excess -2.6 mmol/L Normal -3.0-3.0 [facility] Comment on above: Performed By: #### L ABLACTINT, [id number] #### [facility] (DEFAULT) [address] [place] [address] HCO3 (Bld) [Moles/Vol] 23 mmol/L Normal 22-29 [facility] Comment on above: Performed By: #### L ABLACTINT, [id number] #### [facility] (DEFAULT) [address] [place] [address] PCO2 43 mm Hg Normal 36-52 [facility] Comment on above: Performed By: #### L ABLACTINT, [id number] #### [facility] (DEFAULT) [address] [place] [address] pH (Bld) 7.34 [pH] Normal 7.32-7.43 [facility] Comment on above: Performed By: #### L ABLACTINT, [id number] #### [facility] (DEFAULT) [address] [place] [address] PO2 35 mm Hg Normal [facility] Comment on above: Result Comment: Venous pO2 is not recommended for the evaluation of oxygen status, clinical correlation is recommended. Performed By: #### L ABLACTINT, [id number] #### [facility] (DEFAULT) [address] [place] [address] sO2 52 % Low 70-80 [facility] Comment on above: Performed By: #### L ABLACTINT, [id number] #### [facility] (DEFAULT) [address] [place] [address] Base excess Calc (Bld) [Moles/Vol] -2.6000 mmol/L -3.0 - 3.0 mmol/L [facility] CO2 (Bld) [Partial pressure] 43 mm[Hg] [facility] HCO3 (Bld) [Moles/Vol] 23 mmol/L 22 - 29 mmol/L [facility] Interpretation and review of laboratory results Abnormal [facility] Oxygen (Bld) [Partial pressure] 35 mm[Hg] mm Hg [facility] Oxygen saturation in Blood 52 % Low 70 - 80 % [facility] pH (Bld) 7.34 [pH] [facility] XR CHEST AP PORTABLE EDon XR [...] have reviewed and approved this report. Normal [facility] Basophil percentageon 2021 Chloride [Moles/Vol] 111 mmol/L 98-107 [facility] Work Phone: Glucose [Mass/Vol] 101 mg/dL 74-106 [facility] Work Phone: Comment on above: Fasting Glucose resu lt from 100 to 125 mg/dL suggests IMPAIRED HOMEOSTASIS per A.D.A. criteria. Potassium [Moles/Vol] 3.1 mmol/L 3.5-5.1 [facility] Work Phone: Sodium [Moles/Vol] 141 mmol/L 136-145 [facility] Work Phone: Laboratory - Chemistry and C hemistry - challengeon 07-21-2021 CO2 [Moles/Vol] 23.0 mmol/L 21.0-32.0 [facility] Work Phone: Urea nitrogen/Creatinine [Mass ratio] 23.8 mg/mg 10-20 [facility] Work Phone: No Panel Informationon 07-21 Estimated Creatinine Clearance Calc 60.79 ml/min [facility] Work Phone: Estimated GFR (MDRD) Amer 89 mL/min >60 [facility] Work Phone: Comment on above: GFR Calc Estimated GFR (MDRD) Non-Af Amer 73 mL/min >60 [facility] Work Phone: Comment on above: Non- GFR Calc Serum or plasma calcium nicole urement (mass/volume)on 07-21-2021 Calcium [Mass/Vol] 8.5 mg/dL 8.5-10.1 [facility] Work Phone: Serum or plasma creatinine m easurement (mass/volume)on 07-21-2021 Creatinine [Mass/Vol] 1.05 mg/dL 0.70-1.30 [facility] Work Phone: Comment on above: The validity of the calculated GFR & GFRAA in patients over 70 years has not been determined. Clinical correlation is essential. Serum or plasma urea nitroge n measurement (mass/volume)on 07-21-2021 Urea nitrogen [Mass/Vol] 25 mg/dL 7-18 [facility] Work Phone: Thin prep Papanicolaou smear with manual screeningon 07-21-2021 Thin prep Papanicolaou smear with manual screening 7 5-15 [facility] Work Phone: Basophil percentageon 2021 WBC (Bld) [#/Vol] 10.2 10*3/uL 4.4-11.0 [facility] Work Phone: Blood erythrocytes count (nu mber/volume)on 07-19-2021 RBC (Bld) [#/Vol] 4.59 10*6/uL 4.6-6.2 [facility] Work Phone: Blood hemoglobin measurement (mass/volume)on 07-19-2021 Hemoglobin (Bld) [Mass/Vol] 13.8 g/dL 13.0-16.5 [facility] Work Phone: Blood platelet mean volumeon 07-19-2021 Platelet mean volume (Bld) [Entitic vol] 10.4 fL 6.2-12.0 [facility] Work Phone: Determination of erythrocyte mean corpuscular volume (MCV)on 07-19-2021 MCV (RBC) [Entitic vol] 88.7 fL 80-94 [facility] Work Phone: Hematocrit Auto (Bld) [Volum e fraction]on 07-19-2021 Hematocrit (Bld) [Volume fraction] 40.7 % 40-54 [facility] Work Phone: Laboratory - Hematology and Cell countson 07-19-2021 Erythrocyte distribution width (RBC) [Entitic vol] 44.9 fL 35.1-43.9 [facility] Work Phone: Erythrocyte distribution width (RBC) [Ratio] 14.2 % 11.6-14.6 [facility] Work Phone: [phone] MCH (RBC) [Entitic mass] 30.1 pg 27.0-32.0 [facility] Work Phone: MCHC Auto (RBC) [Mass/Vol]on 07-19-2021 MCHC (RBC) [Mass/Vol] 33.9 g/dL 32-36 [facility] Work Phone: Platelets bldon 07-19-2021 Platelets (Bld) [#/Vol] 180 10*3/uL 150-450 [facility] Work Phone: CBC,PLATELETSon 07-17-2021 Hematocrit (Bld) [Volume fraction] 37.7 % Low 39.6-48.8 [facility] Comment on above: Performed By: #### Say [id number], [id number] #### [facility] (DEFAULT) [address] [place] [address] Hemoglobin (Bld) [Mass/Vol] 12.6 g/dL Low 13.4-16.8 [facility] Comment on above: Performed By: #### Say [id number], [id number] #### [facility] (DEFAULT) [address] [place] [address] MCV (RBC) [Entitic vol] 91.3 fL Normal 79.0-94.5 [facility] Comment on above: Performed By: #### L [id number], [id number] #### [facility] (DEFAULT) [address] [place] [address] 11521 Mean Cell Hgb 30.5 pg Normal 26.1-33.3 [facility] Comment on above: Performed By: #### L [id number], [id number] #### [facility] (DEFAULT) [address] [place] [address] 43527 Mean Cell Hgb Conc 33.4 g/dL Normal 31.9-36.5 [facility] Comment on above: Performed By: #### Say SEGOVIA [id number] #### [facility] (DEFAULT) [address] [place] [address] 16021 Platelet mean volume (Bld) [Entitic vol] 10.6 fL Normal 8.7-12.3 [facility] Comment on above: Performed By: #### Say [id number], [id number] #### [facility] (DEFAULT) [address] [place] [address] 42924 Platelets (Bld) [#/Vol] 155 10*3/uL Normal 146-337 [facility] Comment on above: Performed By: #### Say [id number], [id number] #### [facility] (DEFAULT) [address] [place] [address] 30907 RBC (Bld) [#/Vol] 4.13 10*6/uL Low 4.38-5.83 [facility] Comment on above: Performed By: #### L [id number], [id number] #### [facility] (DEFAULT) [address] [place] [address] 11785 RBC Distribution 14.2 % Normal 10.9-14.3 [facility] Comment on above: Performed By: #### L [id number], [id number] #### [facility] (DEFAULT) [address] [place] [address] WBC (Bld) [#/Vol] 7.35 10*3/uL Normal 3.73-10.10 [facility] Comment on above: Performed By: #### L [id number], [id number] #### [facility] (DEFAULT) [address] [place] [address] Erythrocyte distribution width (RBC) [Ratio] 14.2 % 10.9 - 14.3 % [facility] Hematocrit (Bld) [Volume fraction] 37.7 % Low 39.6 - 48.8 % [facility] Hemoglobin (Bld) [Mass/Vol] 12.6 g/dL Low 13.4 - 16.8 g/dL [facility] Interpretation and review of laboratory results Abnormal [facility] MCH (RBC) [Entitic mass] 30.5 pg 26.1 - 33.[address] [facility] MCHC (RBC) [Mass/Vol] 33.4 g/dL 31.9 - 36.5 g/dL [facility] MCV (RBC) [Entitic vol] 91.3 fL 79.0 - 94.[address] [facility] Platelet mean volume (Bld) [Entitic vol] 10.6 fL 8.7 - 12.[address] [facility] Platelets (Bld) [#/Vol] 155 10*3/uL 146 - 337 K/uL [facility] RBC (Bld) [#/Vol] 4.13 10*6/uL Low [facility] WBC (Bld) [#/Vol] 7.35 10*3/uL 3.73 - 10.10 K/uL [facility] CHEM 7 (LYTES,BUN,CREA,GLUC) on 07-17-2021 Anion gap [Moles/Vol] 18 mmol/L High 7-17 [facility] Comment on above: Performed By: #### C HM7 #### [facility] (DEFAULT) [address] [place] [address] 03176 Chloride [Moles/Vol] 110 mmol/L High 98-108 [facility] Comment on above: Performed By: #### C HM7 #### [facility] (DEFAULT) [address] [place] [address] 29456 CO2 [Moles/Vol] 19 mmol/L Low 21-31 [facility] Comment on above: Performed By: #### C HM7 #### [facility] (DEFAULT) [address] [place] [address] 00398 Creatinine [Mass/Vol] 1.07 mg/dL Normal 0.70-1.30 [facility] Comment on above: Performed By: #### C HM7 #### [facility] (DEFAULT) [address] [place] [address] 65710 GFR/1.73 sq M.predicted among non-blacks MDRD (S/P/Bld) [Vol rate/Area] 72 mL/min/{1.73_m2} Normal >=60 [facility] Comment on above: Result Comment: Repo rted eGFR is based on the CKD-EPI 2020 equation using creatinine, age, and sex. Performed By: #### C HM7 #### [facility] (DEFAULT) [address] [place] [address] 25353 Glucose [Mass/Vol] 95 mg/dL Normal 70-99 [facility] Comment on above: Performed By: #### C HM7 #### [facility] (DEFAULT) [address] [place] [address] 01944 Osmolality [Osmolality] 303 mosm/kg Normal 278-305 [facility] Comment on above: Performed By: #### C HM7 #### [facility] (DEFAULT) [address] [place] [address] 63888 Potassium [Moles/Vol] 3.1 mmol/L Low 3.5-5.0 [facility] Comment on above: Performed By: #### C HM7 #### [facility] (DEFAULT) [address] [place] [address] Sodium [Moles/Vol] 144 mmol/L Normal 135-145 [facility] Comment on above: Performed By: #### C HM7 #### [facility] (DEFAULT) [address] [place] [address] Urea nitrogen [Mass/Vol] 26 mg/dL High 7-25 [facility] Comment on above: Performed By: #### C HM7 #### [facility] (DEFAULT) [address] [place] [address] 42207 Urea nitrogen/Creatinine [Mass ratio] 24 mg/mg Normal [facility] Comment on above: Performed By: #### C HM7 #### [facility] (DEFAULT) [address] [place] [address] 37589 CHEM 7 (LYTES,BUN,CREA,GLUC) Ordered By: Shauna Clayton on 07-17-2021 Anion gap [Moles/Vol] 18 mmol/L High 7 - 17 mmol/L [facility] Chloride [Moles/Vol] 110 mmol/L High 98 - 10 8 mmol/L [facility] CO2 [Moles/Vol] 19 mmol/L Low 21 - 31 mmol/L [facility] Creatinine [Mass/Vol] 1.07 mg/dL 0.70 - 1.30 mg/dL [facility] GFR/1.73 sq M.predicted CKD-EPI (S/P/Bld) [Vol rate/Area] 72 >=60 mL/min/1.[address] [facility] Comment on above: Reported eGFR is bas ed on the CKD-EPI 2020 equation using creatinine, age, and sex. Glucose [Mass/Vol] 95 mg/dL 70 - 99 mg/dL [facility] Interpretation and review of laboratory results Abnormal [facility] Osmolality Calc [Osmolality] 303 [facility] Potassium [Moles/Vol] 3.1 mmol/L Low 3.5 - 5.0 mmol/L [facility] Sodium [Moles/Vol] 144 mmol/L 135 - 145 mmol/L [facility] Urea nitrogen [Mass/Vol] 26 mg/dL High 7 - 25 mg/dL [facility] Urea nitrogen/Creatinine [Mass ratio] 24 mg/[facility] Procedure Ordered By: Ellen Gao on 07-17-2021 Ao peak romy 1.75 m/s [facility] Work Phone: AV LVOT peak gradient [address] [facility] Work Phone: AV peak gradient 12 mmHG [facility] Work Phone: AV Velocity Ratio 0.[address] [facility] Work Phone: JANA (continuity Vmax) 2.[address] [facility] Work Phone: JANA index (continuity Vmax) 1.08 m/s [facility] Work Phone: Avg e' pk romy 0.06 m/s [facility] Work Phone: Avg E/e' ratio 13.44 [facility] Work Phone: Body surface area Derived from formula 2.[address] [facility] Work Phone: BP EF 61 % [facility] Work Phone: DI (Vmax) 0.60 [facility] Work Phone: E wave decelartion time 256.00 msec [facility] Work Phone: e' lateral pk romy 0.0673 m/s [facility] Work Phone: e' lateral pk romy 0.07 m/s [facility] Work Phone: e' septal pk romy 0.0546 m/s [facility] Work Phone: e' septal pk romy 0.05 m/s [facility] Work Phone: E/A ratio 0.77 [facility] Work Phone: E/e' lateral ratio 12.04 [facility] Work Phone: E/e' septal ratio 14.84 [facility] Work Phone: FS 33 % 28 - 44 % [facility]: IVS 1.10 cm [facility] Work Phone: LA AREA 2CH 27.90 cm2 [facility] Work Phone: LA area 4CH 28.90 cm2 [facility] Work Phone: LA ESV BP (MOD) 100 mL [facility] Work Phone: LA ESV BP (MOD) index 47 mL/m2 [facility] Work Phone: LA ESV SP 2CH (MOD) 89 mL [facility] Work Phone: LA ESV SP 4CH (MOD) 103 mL [facility] Work Phone: LV EDV BP 98 mL [facility] Work Phone: LV ESV BP 38 mL [facility] Work Phone: LV mass 169.85 g [facility] Work Phone: LV Mass Index 80.1 g/m2 [facility] Work Phone: LV RWT 0.43 [facility] Work Phone: LV stroke volume BP (ml) [address] [facility] Work Phone: LV stroke volume index BP 28.30 mL/m2 [facility] Work Phone: LVIDD 4.60 cm [facility] Work Phone: LVIDS 3.[address] [facility] Work Phone: LVOT area 3.[address] [facility] Work Phone: LVOT diameter 2.[address] [facility] Work Phone: LVOT peak romy 1.05 m/s [facility] Work Phone: MV pk A romy 1.05 m/s [facility] Work Phone: MV pk E romy 0.81 m/s [facility] Work Phone: [facility] ECHO LV BIPLANE SYSTOLIC VOLUME INDEX 17.92 mL/m2 [facility] Work Phone: [facility] ECHO LV BP DIASTOLIC VOLUME INDEX 46.23 mL/m2 [facility] Work Phone: PV peak gradient 5 mmHg [facility] Work Phone: PV PK ROMY 1.12 m/s [facility] Work Phone: PW 1.[address] [facility] Work Phone: RA area 4CH (MOD) 26.20 cm2 [facility] Work Phone: RA vol index 4CH (MOD) 42.92 mL/m2 [facility] Work Phone: Right atrium volume 4 chamber method of disks 91 mL [facility] Work Phone: RV S' 18.40 cm/s [facility] Work Phone: TAPSE 2.[address] [facility] Work Phone: [facility] Work Phone: Cardiac echo study Procedure on [...] include poor cardiac windows. Imaging system used: [employer]. Indications for study: stroke/tia. [facility] Radiology Study observation (narrative) [facility] ECHOCARDIOGRAMon 07-17-2021 Echocardiography ? Overall image [...] image are available for comparison. Facility [facility] Patient Information Patient Name Ignacio Aquino Legal [...] Role Read Date Ellen Gao MD Echo [place] 07/17/2021 Left Heart Measurements LV - Systole [...] include poor cardiac windows. Imaging system used: [employer]. Indications for study: stroke/tia. Exam Details Performed Procedure Technologist Supporting Staff Performing Physician ECHOCARDIOGRAM W/O 3D W/CONTRAST WILLIAMS Pratt RN Appointment Date/Status Modality Department 07/17/2021 Arrived ECHO TESTING, [facility] ECHOCARDIOGRAPHY ROSS Begin Exam [...] MyChart. ECHOCA (more content not included)... Normal [facility] MR Brain WO contraston 07-16 IMPRESSION: [...] and left thalamus keeping with remote microhemorrhage. [facility] Radiology Study observation (narrative) [facility] MR Brain WO contrastOrdered By: Shanna Aguillon on 07-16-2021 [facility] Work Phone: MRI BRAIN WITHOUT CONTRASTon 07-16-2021 [...] left thalamus keeping with remote microhemorrhage. Normal [facility] PLATELET COUNTon 07-16-2021 Platelet mean volume (Bld) [Entitic vol] 10.5 fL Normal 8.7-12.3 [facility] Comment on above: Performed By: #### H [facility] #### [facility] (DEFAULT) [address] [address] Platelets (Bld) [#/Vol] 150 10*3/uL Normal 146-337 [facility] Comment on above: Performed By: #### H [facility] #### [facility] (DEFAULT) [address] [address] Interpretation and review of laboratory results Normal [facility] Platelet mean volume (Bld) [Entitic vol] 10.5 fL 8.7 - 12.[address] [facility] Platelets (Bld) [#/Vol] 150 10*3/uL 146 - 337 K/uL [facility] CARDIAC RHYTHM (SCANNED)on 0 07-15-2021 [facility] CBC,PLATELETSon 07-15-2021 Hematocrit (Bld) [Volume fraction] 39.2 % Low 39.6-48.8 [facility] Comment on above: Performed By: #### H [facility] #### [facility] (DEFAULT) [address] [address] Hemoglobin (Bld) [Mass/Vol] 13.4 g/dL Normal 13.4-16.8 [facility] Comment on above: Performed By: #### H [facility] #### [facility] (DEFAULT) [address] [place] [address] 32002 MCV (RBC) [Entitic vol] 89.1 fL Normal 79.0-94.5 [facility] Comment on above: Performed By: #### H EMOGC #### [facility] (DEFAULT) [address] [place] [address] 18873 Mean Cell Hgb 30.5 pg Normal 26.1-33.3 [facility] Comment on above: Performed By: #### H EMOGC #### [facility] (DEFAULT) [address] [place] [address] 67783 Mean Cell Hgb Conc 34.2 g/dL Normal 31.9-36.5 [facility] Comment on above: Performed By: #### H EMOGC #### [facility] (DEFAULT) [address] [place] [address] 23885 Platelet mean volume (Bld) [Entitic vol] 10.4 fL Normal 8.7-12.3 [facility] Comment on above: Performed By: #### H EMOGC #### [facility] (DEFAULT) [address] [place] [address] 33831 Platelets (Bld) [#/Vol] 133 10*3/uL Low 146-337 [facility] Comment on above: Performed By: #### H EMOGC #### [facility] (DEFAULT) [address] [place] [address] 62204 RBC (Bld) [#/Vol] 4.40 10*6/uL Normal 4.38-5.83 [facility] Comment on above: Performed By: #### H EMOGC #### [facility] (DEFAULT) [address] [place] [address] 00746 RBC Distribution 13.8 % Normal 10.9-14.3 [facility] Comment on above: Performed By: #### H EMOGC #### [facility] (DEFAULT) [address] [place] [address] 60021 WBC (Bld) [#/Vol] 9.04 10*3/uL Normal 3.73-10.10 [facility] Comment on above: Performed By: #### H [facility] #### [facility] (DEFAULT) [address] [place] [address] Erythrocyte distribution width (RBC) [Ratio] 13.8 % 10.9 - 14.3 % [facility] Hematocrit (Bld) [Volume fraction] 39.2 % Low 39.6 - 48.8 % [facility] Hemoglobin (Bld) [Mass/Vol] 13.4 g/dL 13.4 - 16.8 g/dL [facility] Interpretation and review of laboratory results Abnormal [facility] MCH (RBC) [Entitic mass] 30.5 pg 26.1 - 33.[address] [facility] MCHC (RBC) [Mass/Vol] 34.2 g/dL 31.9 - 36.5 g/dL [facility] MCV (RBC) [Entitic vol] 89.1 fL 79.0 - 94.[address] [facility] Platelet mean volume (Bld) [Entitic vol] 10.4 fL 8.7 - 12.[address] [facility] Platelets (Bld) [#/Vol] 133 10*3/uL Low 146 - 337 K/uL [facility] RBC (Bld) [#/Vol] 4.40 10*6/uL [facility] WBC (Bld) [#/Vol] 9.04 10*3/uL 3.73 - 10.10 K/uL [facility] CHEM 7 (LYTES,BUN,CREA,GLUC) on 07-15-2021 Anion gap [Moles/Vol] 14 mmol/L Normal 7-17 [facility] Comment on above: Performed By: #### A 1CB #### [facility] (DEFAULT) [address] [place] [address] Chloride [Moles/Vol] 106 mmol/L Normal 98-108 [facility] Comment on above: Performed By: #### A 1CB #### [facility] (DEFAULT) [address] [place] [address] 84089 CO2 [Moles/Vol] 22 mmol/L Normal 21-31 [facility] Comment on above: Performed By: #### A 1CB #### [facility] (DEFAULT) [address] [place] [address] 88188 Creatinine [Mass/Vol] 0.93 mg/dL Normal 0.70-1.30 [facility] Comment on above: Performed By: #### A 1CB #### [facility] (DEFAULT) [address] [place] [address] 34784 GFR/1.73 sq M.predicted among non-blacks MDRD (S/P/Bld) [Vol rate/Area] 86 mL/min/{1.73_m2} Normal >=60 [facility] Comment on above: Result Comment: Repo rted eGFR is based on the CKD-EPI 2020 equation using creatinine, age, and sex. Performed By: #### A 1CB #### [facility] (DEFAULT) [address] [place] [address] 37553 Glucose [Mass/Vol] 125 mg/dL High 70-99 [facility] Comment on above: Performed By: #### A 1CB #### [facility] (DEFAULT) [address] [place] [address] 76606 Osmolality [Osmolality] 290 mosm/kg Normal 278-305 [facility] Comment on above: Performed By: #### A 1CB #### [facility] (DEFAULT) [address] [place] [address] 34019 Potassium [Moles/Vol] 3.5 mmol/L Normal 3.5-5.0 [facility] Comment on above: Performed By: #### A 1CB #### [facility] (DEFAULT) [address] [place] [address] 62217 Sodium [Moles/Vol] 138 mmol/L Normal 135-145 [facility] Comment on above: Performed By: #### A 1CB #### [facility] (DEFAULT) [address] [place] [address] Urea nitrogen [Mass/Vol] 14 mg/dL Normal 7-25 [facility] Comment on above: Performed By: #### A 1CB #### [facility] (DEFAULT) [address] [place] [address] Urea nitrogen/Creatinine [Mass ratio] 15 mg/mg Normal [facility] Comment on above: Performed By: #### A 1CB #### [facility] (DEFAULT) [address] [place] [address] Anion gap [Moles/Vol] 14 mmol/L 7 - 17 mmol/L [facility] Chloride [Moles/Vol] 106 mmol/L 98 - 10 8 mmol/L [facility] CO2 [Moles/Vol] 22 mmol/L 21 - 31 mmol/L [facility] Creatinine [Mass/Vol] 0.93 mg/dL 0.70 - 1.30 mg/dL [facility] GFR/1.73 sq M.predicted CKD-EPI (S/P/Bld) [Vol rate/Area] 86 >=60 mL/min/1.[address] [facility] Comment on above: Reported eGFR is bas ed on the CKD-EPI 2020 equation using creatinine, age, and sex. Glucose [Mass/Vol] 125 mg/dL High 70 - 99 mg/dL [facility] Interpretation and review of laboratory results Abnormal [facility] Osmolality Calc [Osmolality] 290 [facility] Potassium [Moles/Vol] 3.5 mmol/L 3.5 - 5.0 mmol/L [facility] Sodium [Moles/Vol] 138 mmol/L 135 - 145 mmol/L [facility] Urea nitrogen [Mass/Vol] 14 mg/dL 7 - 25 mg/dL [facility] Urea nitrogen/Creatinine [Mass ratio] 15 mg/mg [facility] CBC,PLATELETSon 07-14-2021 Hematocrit (Bld) [Volume fraction] 39.8 % Normal 39.6-48.8 [facility] Comment on above: Performed By: #### H EMOGC #### [facility] (DEFAULT) [address] [place] [address] 28492 Hemoglobin (Bld) [Mass/Vol] 13.3 g/dL Low 13.4-16.8 [facility] Comment on above: Performed By: #### H EMOGC #### [facility] (DEFAULT) [address] [place] [address] 64007 MCV (RBC) [Entitic vol] 91.1 fL Normal 79.0-94.5 [facility] Comment on above: Performed By: #### H EMO #### [facility] (DEFAULT) [address] [place] [address] 15925 Mean Cell Hgb 30.4 pg Normal 26.1-33.3 [facility] Comment on above: Performed By: #### H EMO #### [facility] (DEFAULT) [address] [address] Mean Cell Hgb Conc 33.4 g/dL Normal 31.9-36.5 [facility] Comment on above: Performed By: #### H EMOSERINA #### [facility] (DEFAULT) [address] [address] Mean Platelet Volume Normal [facility] Comment on above: Result Comment: Not measured Performed By: #### H EMOSERINA #### [facility] (DEFAULT) [address] [place] [address] 10047 Platelets (Bld) [#/Vol] 133 10*3/uL Low 146-337 [facility] Comment on above: Performed By: #### H EMOGC #### [facility] (DEFAULT) [address] [place] [address] 86182 RBC (Bld) [#/Vol] 4.37 10*6/uL Low 4.38-5.83 [facility] Comment on above: Performed By: #### H EMOGC #### [facility] (DEFAULT) [address] [place] [address] RBC Distribution 14.2 % Normal 10.9-14.3 [facility] Comment on above: Performed By: #### H [facility] #### [facility] (DEFAULT) [address] [place] [address] WBC (Bld) [#/Vol] 9.52 10*3/uL Normal 3.73-10.10 [facility] Comment on above: Performed By: #### H [facility] #### [facility] (DEFAULT) [address] [place] [address] Erythrocyte distribution width (RBC) [Ratio] 14.2 % 10.9 - 14.3 % [facility] Hematocrit (Bld) [Volume fraction] 39.8 % 39.6 - 48.8 % [facility] Hemoglobin (Bld) [Mass/Vol] 13.3 g/dL Low 13.4 - 16.8 g/dL [facility] Interpretation and review of laboratory results Abnormal [facility] MCH (RBC) [Entitic mass] 30.4 pg 26.1 - 33.[address] [facility] MCHC (RBC) [Mass/Vol] 33.4 g/dL 31.9 - 36.5 g/dL [facility] MCV (RBC) [Entitic vol] 91.1 fL 79.0 - 94.[address] [facility] Platelet mean volume (Bld) [Entitic vol] [facility] Comment on above: Not measured Platelets (Bld) [#/Vol] 133 10*3/uL Low 146 - 337 K/uL [facility] RBC (Bld) [#/Vol] 4.37 10*6/uL Low [facility] WBC (Bld) [#/Vol] 9.52 10*3/uL 3.73 - 10.10 K/uL [facility] CHEM 7 (LYTES,BUN,CREA,GLUC) on 07-14-2021 Anion gap [Moles/Vol] 13 mmol/L Normal 7-17 [facility] Comment on above: Performed By: #### C HM7 #### [facility] (DEFAULT) [address] [place] [address] Chloride [Moles/Vol] 107 mmol/L Normal 98-108 [facility] Comment on above: Performed By: #### C HM7 #### [facility] (DEFAULT) [address] [place] [address] 26385 CO2 [Moles/Vol] 23 mmol/L Normal 21-31 [facility] Comment on above: Performed By: #### C HM7 #### [facility] (DEFAULT) [address] [place] [address] Creatinine [Mass/Vol] 1.09 mg/dL Normal 0.70-1.30 [facility] Comment on above: Performed By: #### C HM7 #### [facility] (DEFAULT) [address] [place] [address] GFR/1.73 sq M.predicted among non-blacks MDRD (S/P/Bld) [Vol rate/Area] 71 mL/min/{1.73_m2} Normal >=60 [facility] Comment on above: Result Comment: Repo rted eGFR is based on the CKD-EPI 2020 equation using creatinine, age, and sex. Performed By: #### C HM7 #### [facility] (DEFAULT) [address] [place] [address] Glucose [Mass/Vol] 110 mg/dL High 70-99 [facility] Comment on above: Performed By: #### C HM7 #### [facility] (DEFAULT) [address] [address] Osmolality [Osmolality] 292 mosm/kg Normal 278-305 [facility] Comment on above: Performed By: #### C HM7 #### [facility] (DEFAULT) [address] [place] [address] Potassium [Moles/Vol] 3.7 mmol/L Normal 3.5-5.0 [facility] Comment on above: Performed By: #### C HM7 #### [facility] (DEFAULT) [address] [place] [address] Sodium [Moles/Vol] 139 mmol/L Normal 135-145 [facility] Comment on above: Performed By: #### C HM7 #### [facility] (DEFAULT) [address] [place] [address] Urea nitrogen [Mass/Vol] 15 mg/dL Normal 7-25 [facility] Comment on above: Performed By: #### C HM7 #### [facility] (DEFAULT) [address] [place] [address] Urea nitrogen/Creatinine [Mass ratio] 14 mg/mg Normal [facility] Comment on above: Performed By: #### C HM7 #### [facility] (DEFAULT) [address] [place] [address] Anion gap [Moles/Vol] 13 mmol/L 7 - 17 mmol/L [facility] Chloride [Moles/Vol] 107 mmol/L 98 - 10 8 mmol/L [facility] CO2 [Moles/Vol] 23 mmol/L 21 - 31 mmol/L [facility] Creatinine [Mass/Vol] 1.09 mg/dL 0.70 - 1.30 mg/dL [facility] GFR/1.73 sq M.predicted CKD-EPI (S/P/Bld) [Vol rate/Area] 71 >=60 mL/min/1.[address] [facility] Comment on above: Reported eGFR is bas ed on the CKD-EPI 2020 equation using creatinine, age, and sex. Glucose [Mass/Vol] 110 mg/dL High 70 - 99 mg/dL [facility] Interpretation and review of laboratory results Abnormal [facility] Osmolality Calc [Osmolality] 292 [facility] Potassium [Moles/Vol] 3.7 mmol/L 3.5 - 5.0 mmol/L [facility] Sodium [Moles/Vol] 139 mmol/L 135 - 145 mmol/L [facility] Urea nitrogen [Mass/Vol] 15 mg/dL 7 - 25 mg/dL [facility] Urea nitrogen/Creatinine [Mass ratio] 14 mg/mg [facility] CT Head limitedon 07-14-2021 IMPRESSION: Acute [...] I have reviewed and approved this report. [facility] CT Head limitedOrdered By: Jessica Cruz on 07-14-2021 [facility] Work Phone: CT STROKE HEAD-STROKE ALERT ONLYon [...] have reviewed and approved this report. Normal [facility] DEVICE EVALUATION (SCANNED)o n 07-14-2021 [facility] No Panel Informationon 07-14 [facility] URINE CULTUREOrdered By: Kia Martínez on 07-14-2021 Bacteria identified Cx Nom (Unsp spec) Growth [facility] Bacteria identified Cx Nom (Unsp spec) GROUP B STREPTOCOCCUS Abnormal [facility] Comment on above: Susceptibilities not routinely performed. Interpretation and review of laboratory results Abnormal [facility] CBC,PLATELETSon 07-13-2021 Hematocrit (Bld) [Volume fraction] 41.5 % Normal 39.6-48.8 [facility] Comment on above: Performed By: #### A 1CB #### [facility] (DEFAULT) [address] [address] Hemoglobin (Bld) [Mass/Vol] 13.6 g/dL Normal 13.4-16.8 [facility] Comment on above: Performed By: #### A 1CB #### [facility] (DEFAULT) [address] [address] MCV (RBC) [Entitic vol] 90.8 fL Normal 79.0-94.5 [facility] Comment on above: Performed By: #### A 1CB #### [facility] (DEFAULT) [address] [address] Mean Cell Hgb 29.8 pg Normal 26.1-33.3 [facility] Comment on above: Performed By: #### A 1CB #### [facility] (DEFAULT) [address] [address] Mean Cell Hgb Conc 32.8 g/dL Normal 31.9-36.5 [facility] Comment on above: Performed By: #### A 1CB #### [facility] (DEFAULT) [address] [address] Platelet mean volume (Bld) [Entitic vol] 10.6 fL Normal 8.7-12.3 [facility] Comment on above: Performed By: #### A 1CB #### [facility] (DEFAULT) [address] [address] Platelets (Bld) [#/Vol] 149 10*3/uL Normal 146-337 [facility] Comment on above: Performed By: #### A 1CB #### [facility] (DEFAULT) [address] [address] RBC (Bld) [#/Vol] 4.57 10*6/uL Normal 4.38-5.83 [facility] Comment on above: Performed By: #### A 1CB #### [facility] (DEFAULT) [address] [address] RBC Distribution 14.2 % Normal 10.9-14.3 [facility] Comment on above: Performed By: #### A 1CB #### [facility] (DEFAULT) [address] [address] WBC (Bld) [#/Vol] 11.39 10*3/uL High 3.73-10.10 [facility] Comment on above: Performed By: #### A 1CB #### [facility] (DEFAULT) [address] [address] Erythrocyte distribution width (RBC) [Ratio] 14.2 % 10.9 - 14.3 % [facility] Hematocrit (Bld) [Volume fraction] 41.5 % 39.6 - 48.8 % [facility] Hemoglobin (Bld) [Mass/Vol] 13.6 g/dL 13.4 - 16.8 g/dL [facility] Interpretation and review of laboratory results Abnormal [facility] MCH (RBC) [Entitic mass] 29.8 pg 26.1 - 33.[address] [facility] MCHC (RBC) [Mass/Vol] 32.8 g/dL 31.9 - 36.5 g/dL [facility] MCV (RBC) [Entitic vol] 90.8 fL 79.0 - 94.[address] [facility] Platelet mean volume (Bld) [Entitic vol] 10.6 fL 8.7 - 12.[address] [facility] Platelets (Bld) [#/Vol] 149 10*3/uL 146 - 337 K/uL [facility] RBC (Bld) [#/Vol] 4.57 10*6/uL [facility] WBC (Bld) [#/Vol] 11.39 10*3/uL High 3.73 - 10.10 K/uL [facility] CHEM 7 (LYTES,BUN,CREA,GLUC) on 07-13-2021 Anion gap [Moles/Vol] 13 mmol/L Normal 7-17 [facility] Comment on above: Performed By: #### U R #### [facility] (DEFAULT) [address] [place] [address] Chloride [Moles/Vol] 108 mmol/L Normal 98-108 [facility] Comment on above: Performed By: #### U R #### [facility] (DEFAULT) [address] [address] CO2 [Moles/Vol] 23 mmol/L Normal 21-31 [facility] Comment on above: Performed By: #### U R #### [facility] (DEFAULT) [address] [place] [address] Creatinine [Mass/Vol] 1.20 mg/dL Normal 0.70-1.30 [facility] Comment on above: Performed By: #### U R #### [facility] (DEFAULT) [address] [place] [address] GFR/1.73 sq M.predicted among non-blacks MDRD (S/P/Bld) [Vol rate/Area] 63 mL/min/{1.73_m2} Normal >=60 [facility] Comment on above: Result Comment: Repo rted eGFR is based on the CKD-EPI 2020 equation using creatinine, age, and sex. Performed By: #### U R #### [facility] (DEFAULT) [address] [place] [address] Glucose [Mass/Vol] 112 mg/dL High 70-99 [facility] Comment on above: Performed By: #### U R #### [facility] (DEFAULT) [address] [place] [address] Osmolality [Osmolality] 295 mosm/kg Normal 278-305 [facility] Comment on above: Performed By: #### U R #### [facility] (DEFAULT) [address] [place] [address] Potassium [Moles/Vol] 3.8 mmol/L Normal 3.5-5.0 [facility] Comment on above: Performed By: #### U R #### [facility] (DEFAULT) [address] [place] [address] Sodium [Moles/Vol] 140 mmol/L Normal 135-145 [facility] Comment on above: Performed By: #### U R #### [facility] (DEFAULT) [address] [address] Urea nitrogen [Mass/Vol] 18 mg/dL Normal 7-25 [facility] Comment on above: Performed By: #### U R #### [facility] (DEFAULT) [address] [place] [address] Urea nitrogen/Creatinine [Mass ratio] 15 mg/mg Normal [facility] Comment on above: Performed By: #### U R #### [facility] (DEFAULT) [address] [place] [address] Anion gap [Moles/Vol] 13 mmol/L 7 - 17 [facility] Chloride [Moles/Vol] 108 mmol/L 98 - 10 8 mmol/L [facility] CO2 [Moles/Vol] 23 mmol/L 21 - 31 mmol/L [facility] Creatinine [Mass/Vol] 1.20 mg/dL 0.70 - 1.30 mg/dL [facility] GFR/1.73 sq M.predicted CKD-EPI (S/P/Bld) [Vol rate/Area] 63 >=60 mL/min/1.[address] [facility] Comment on above: Reported eGFR is bas ed on the CKD-EPI 2020 equation using creatinine, age, and sex. Glucose [Mass/Vol] 112 mg/dL High 70 - 99 mg/dL [facility] Osmolality Calc [Osmolality] 295 [facility] Potassium [Moles/Vol] 3.8 mmol/L 3.5 - 5.0 mmol/L [facility] Sodium [Moles/Vol] 140 mmol/L 135 - 145 mmol/L [facility] Urea nitrogen [Mass/Vol] 18 mg/dL 7 - 25 mg/dL [facility] Urea nitrogen/Creatinine [Mass ratio] 15 mg/mg [facility] CT HEAD WITHOUT CONTRASTon 0 07-13-2021 CT [...] hemorrhagic transformation. No significant midline shift. Normal [facility] CT Head WO contraston 2021 EXAM: [...] hemorrhagic transformation. No significant midline shift. U [facility] Radiology Study observation (narrative) U [facility] CT Head WO contrastOrdered B y: Paolo Puri on 07-13-2021 [facility] Work Phone: EXTRA MICROon 07-13-2021 [facility] FIBRINOGEN, CLOTTABLEon 05-0 Fibrinogen-Clottable 246 mg/dL Normal 220-410 [facility] Comment on above: Result Comment: Func tional Fibrinogen (activity) levels can be affected by direct thrombin inhibitors such as heparins (>2.0 IU/ml) and dabigatran. Abnormal results should be interpreted with caution. Performed By: #### A 1CB #### [facility] (DEFAULT) [address] [place] [address] Fibrinogen Coag (PPP) [Mass/Vol] 246 mg/dL 220 - 410 mg/dL [facility] Comment on above: Functional Fibrinoge n (activity) levels can be affected by direct thrombin inhibitors such as heparins (>2.0 IU/ml) and dabigatran. Abnormal results should be interpreted with caution. Interpretation and review of laboratory results Normal [facility] HEMOGLOBIN [id number] By: Won Hernández on 07-13-2021 Average glucose Estimated from glycated hemoglobin (Bld) [Mass/Vol] 103 mg/dL [facility] HbA1c (Bld) [Mass fraction] 5.2 % 4.7 - 5.6 % [facility] HEMOGLOBIN A1Con 07-13-2021 Glucose [Mass/Vol] 103 mg/dL Normal [facility] Comment on above: Performed By: #### A 1CB #### [facility] (DEFAULT) [address] [place] [address] HbA1c (Bld) [Mass fraction] 5.2 % Normal 4.7-5.6 [facility] Comment on above: Performed By: #### A 1CB #### [facility] (DEFAULT) [address] [place] [address] LIPID PANEL WITH REFLEX TO M EASURED LDLon 07-13-2021 Calculated LDL Cholesterol 90 mg/dL Normal 0-99 [facility] Comment on above: Result Comment: [<10 0 mg/dL: Optimal] [100-129 mg/dL: Near Optimal] [130-159 mg/dL: Borderline High] [160-189 mg/dL: High] [>189 mg/dL: Very High] Performed By: #### U R #### [facility] (DEFAULT) [address] [place] [address] Cholesterol [Mass/Vol] 139 mg/dL Normal <[address] [facility] Comment on above: Result Comment: [<20 0 mg/dL: Desirable] [200-239 mg/dL: Borderline High] [>239 mg/dL: High] Performed By: #### U R #### [facility] (DEFAULT) [address] [place] [address] Cholesterol in HDL [Mass/Vol] 32 mg/dL Low >=40 [facility] Comment on above: Result Comment: [<40 mg/dL: Low (High Risk)] [>59 mg/dL: High (Low Risk)] Performed By: #### U R #### [facility] (DEFAULT) [address] [place] [address] Non HDL Cholesterol 107 mg/dL Normal <130 [facility] Comment on above: Performed By: #### U R #### [facility] (DEFAULT) [address] [place] [address] Total Cholesterol/HDL Ratio 4.3 Normal <4.5 [facility] Comment on above: Performed By: #### U R #### [facility] (DEFAULT) [address] [place] [address] Triglyceride [Mass/Vol] 83 mg/dL Normal <150 [facility] Comment on above: Result Comment: [<15 0 mg/dL: Desirable] [150-199 mg/dL: Borderline] [200-499 mg/dL: High] [>500 mg/dL: Very High] Performed By: #### U R #### [facility] (DEFAULT) [address] [place] [address] Cholesterol [Mass/Vol] 139 mg/dL <200 [facility] Comment on above: [<200 mg/dL: Desirab le] [200-239 mg/dL: Borderline High] [>239 mg/dL: High] Cholesterol in HDL [Mass/Vol] 32 mg/dL Low >=40 [facility] Comment on above: [<40 mg/dL: Low (Hig h Risk)] [>59 mg/dL: High (Low Risk)] Cholesterol in HDL [Mass/Vol] 107 mg/dL <130 [facility] Cholesterol in LDL [Mass/Vol] 90 mg/dL 0 - 99 mg/dL [facility] Comment on above: [<100 mg/dL: Optimal ] [100-129 mg/dL: Near Optimal] [130-159 mg/dL: Borderline High] [160-189 mg/dL: High] [>189 mg/dL: Very High] Cholesterol.total/Edita sterol in HDL [Mass ratio] 4.3 {ratio} <4.5 [facility] Triglyceride [Mass/Vol] 83 mg/dL <150 [facility] Comment on above: [<150 mg/dL: Desirab le] [150-199 mg/dL: Borderline] [200-499 mg/dL: High] [>500 mg/dL: Very High] LT BLUE TOP TUBEon 2 [facility] MAGNESIUMon 07-13-2021 Magnesium [Mass/Vol] 2.2 mg/dL Normal 1.6-2.6 [facility] Comment on above: Performed By: #### U R #### [facility] (DEFAULT) [address] [place] [address] Interpretation and review of laboratory results Normal [facility] Magnesium [Mass/Vol] 2.2 mg/dL 1.6 - 2 .6 mg/dL [facility] No Panel Informationon 07-13 Interpretation and review of laboratory results Abnormal [facility] Absolute lymphocyte counton 07-12-2021 Lymphocytes Auto (Unsp spec) [#/Vol] 1.19 10*3/uL 0.83-4.51 [facility] Work Phone: Basophil percentageon 2021 Basophils/100 WBC (Bld) 0.5 % 0-1 [facility] Work Phone: Chloride [Moles/Vol] 110 mmol/L 98-107 [facility] Work Phone: [phone] Eosinophils/100 WBC (Bld) 2.9 % 0-5 [facility] Work Phone: Glucose [Mass/Vol] 119 mg/dL 74-106 [facility] Work Phone: Comment on above: Fasting Glucose resu lt from 100 to 125 mg/dL suggests IMPAIRED HOMEOSTASIS per A.D.A. criteria. Neutrophils (Bld) [#/Vol] 4.3 10*3/uL 2.0-7.7 [facility] Work Phone: Neutrophils/100 WBC (Bld) 68.6 % 47-70 [facility] Work Phone: Potassium [Moles/Vol] 3.6 mmol/L 3.5-5.1 [facility] Work Phone: Sodium [Moles/Vol] 139 mmol/L 136-145 [facility] Work Phone: WBC (Bld) [#/Vol] 6.2 10*3/uL 4.4-11.0 [facility] Work Phone: Blood erythrocytes count (nu mber/volume)on 07-12-2021 RBC (Bld) [#/Vol] 4.22 10*6/uL 4.6-6.2 [facility] Work Phone: Blood hemoglobin measurement (mass/volume)on 07-12-2021 Hemoglobin (Bld) [Mass/Vol] 12.8 g/dL 13.0-16.5 [facility] Work Phone: [phone] Blood lymphocytes/100 leukoc yteson 07-12-2021 Lymphocytes/100 WBC (Bld) 19.2 % 19-41 [facility] Work Phone: [phone] Blood monocytes/100 leukocyt eson 07-12-2021 Monocytes/100 WBC (Bld) 8.2 % 0-10 [facility] Work Phone: Blood platelet mean volumeon 07-12-2021 Platelet mean volume (Bld) [Entitic vol] 10.7 fL 6.2-12.0 [facility] Work Phone: CBC AND ELECTRONIC DIFFon Basophils (Bld) [#/Vol] 10*3/uL Normal 0.00-0.09 [facility] Comment on above: Performed By: #### H EMOGC #### [facility] (DEFAULT) [address] [address] Basophils/100 WBC (Bld) 0.3 % Normal [facility] Comment on above: Performed By: #### H EMOGC #### [facility] (DEFAULT) [address] [address] DIFF STATUS Electronic Differential Normal [facility] Comment on above: Performed By: #### H EMOGC #### [facility] (DEFAULT) [address] [address] Eosinophils (Bld) [#/Vol] 0.09 10*3/uL Normal 0.00-0.48 [facility] Comment on above: Performed By: #### H EMOGC #### [facility] (DEFAULT) [address] [address] Eosinophils/100 WBC (Bld) 0.9 % Normal [facility] Comment on above: Performed By: #### H EMOGC #### [facility] (DEFAULT) [address] [address] Hematocrit (Bld) [Volume fraction] 43.7 % Normal 39.6-48.8 [facility] Comment on above: Performed By: #### H EMOGC #### [facility] (DEFAULT) [address] [address] Hemoglobin (Bld) [Mass/Vol] 14.7 g/dL Normal 13.4-16.8 [facility] Comment on above: Performed By: #### H EMOGC #### [facility] (DEFAULT) [address] [address] Immature Grans % 0.5 % Normal [facility] Comment on above: Performed By: #### H EMOGC #### [facility] (DEFAULT) [address] [address] Immature Grans Absolute 0.05 K/uL Normal <=0.08 [facility] Comment on above: Performed By: #### H EMOGC #### [facility] (DEFAULT) [address] [address] Lymphocytes (Bld) [#/Vol] 0.99 10*3/uL Normal 0.83-3.57 [facility] Comment on above: Performed By: #### H EMO #### [facility] (DEFAULT) [address] [address] Lymphocytes/100 WBC (Bld) 9.8 % Normal [facility] Comment on above: Performed By: #### H EMO #### [facility] (DEFAULT) [address] [address] MCV (RBC) [Entitic vol] 89.4 fL Normal 79.0-94.5 [facility] Comment on above: Performed By: #### H EMO #### [facility] (DEFAULT) [address] [address] Mean Cell Hgb 30.1 pg Normal 26.1-33.3 [facility] Comment on above: Performed By: #### H EMOGC #### [facility] (DEFAULT) [address] [address] Mean Cell Hgb Conc 33.6 g/dL Normal 31.9-36.5 [facility] Comment on above: Performed By: #### H EMOGC #### [facility] (DEFAULT) [address] [address] Monocytes (Bld) [#/Vol] 0.53 10*3/uL Normal 0.24-0.93 [facility] Comment on above: Performed By: #### H EMOGC #### [facility] (DEFAULT) [address] [place] [address] Monocytes/100 WBC (Bld) 5.2 % Normal [facility] Comment on above: Performed By: #### H EMOGC #### [facility] (DEFAULT) [address] [place] [address] Nucleated RBC 0.0 /100 WBC Normal <=0.2 [facility] Comment on above: Performed By: #### H EMOGC #### [facility] (DEFAULT) [address] [place] [address] Platelet mean volume (Bld) [Entitic vol] 11.1 fL Normal 8.7-12.3 [facility] Comment on above: Performed By: #### H EMOGC #### [facility] (DEFAULT) [address] [place] [address] Platelets (Bld) [#/Vol] 130 10*3/uL Low 146-337 [facility] Comment on above: Performed By: #### H EMOGC #### [facility] (DEFAULT) [address] [place] [address] RBC (Bld) [#/Vol] 4.89 10*6/uL Normal 4.38-5.83 [facility] Comment on above: Performed By: #### H EMOGC #### [facility] (DEFAULT) [address] [place] [address] RBC Distribution 14.0 % Normal 10.9-14.3 [facility] Comment on above: Performed By: #### H EMOGC #### [facility] (DEFAULT) [address] [place] [address] Segs + Bands Auto 83.3 % Normal [facility] Comment on above: Performed By: #### H EMOGC #### [facility] (DEFAULT) [address] [place] [address] Segs + Bands,Absolute Auto 8.41 K/uL High 1.57-6.19 [facility] Comment on above: Performed By: #### H [facility] #### [facility] (DEFAULT) [address] [place] [address] WBC (Bld) [#/Vol] 10.10 10*3/uL Normal 3.73-10.10 [facility] Comment on above: Performed By: #### H [facility] #### [facility] (DEFAULT) [address] [place] [address] Basophils (Bld) [#/Vol] 10*3/uL 0.00 - 0.09 K/uL [facility] Basophils/100 WBC (Bld) 0.3 % [facility] Differential cell count method Nom (Bld) Electronic Differential [facility] Eosinophils (Bld) [#/Vol] 0.09 10*3/uL 0.00 - 0.48 K/uL [facility] Eosinophils/100 WBC (Bld) 0.9 % [facility] Erythrocyte distribution width (RBC) [Ratio] 14.0 % 10.9 - 14.3 % [facility] Hematocrit (Bld) [Volume fraction] 43.7 % 39.6 - 48.8 % [facility] Hemoglobin (Bld) [Mass/Vol] 14.7 g/dL 13.4 - 16.8 g/dL [facility] Immature granulocytes (Bld) [#/Vol] 0.05 10*3/uL <=0.08 [facility] Immature granulocytes/100 WBC (Bld) 0.5 % [facility] Interpretation and review of laboratory results Abnormal [facility] Lymphocytes (Bld) [#/Vol] 0.99 10*3/uL 0.83 - 3.57 K/uL [facility] Lymphocytes/100 WBC (Bld) 9.8 % [facility] MCH (RBC) [Entitic mass] 30.1 pg 26.1 - 33.[address] [facility] MCHC (RBC) [Mass/Vol] 33.6 g/dL 31.9 - 36.5 g/dL [facility] MCV (RBC) [Entitic vol] 89.4 fL 79.0 - 94.[address] [facility] Monocytes (Bld) [#/Vol] 0.53 10*3/uL 0.24 - 0.93 K/uL [facility] Monocytes/100 WBC (Bld) 5.2 % [facility] Neutrophils (Bld) [#/Vol] 8.41 10*3/uL High 1.57 - 6.19 K/uL [facility] Nucleated RBC/100 WBC (Bld) [Ratio] 0.0 % <=0.2 /[address] [facility] Platelet mean volume (Bld) [Entitic vol] 11.1 fL 8.7 - 12.[address] [facility] Platelets (Bld) [#/Vol] 130 10*3/uL Low 146 - 337 K/uL [facility] RBC (Bld) [#/Vol] 4.89 10*6/uL [facility] Segmented neutrophils/100 WBC (Bld) 83.3 % [facility] WBC (Bld) [#/Vol] 10.10 10*3/uL 3.73 - 10.10 K/uL [facility] CHM 7 - EDon 07-12-2021 Anion gap [Moles/Vol] 14 mmol/L Normal 7-17 [facility] Comment on above: Performed By: #### [facility] #### [facility] (DEFAULT) [address] [place] [address] Chloride [Moles/Vol] 107 mmol/L Normal 98-108 [facility] Comment on above: Performed By: #### [facility] [place] #### [facility] (DEFAULT) [address] [place] [address] CO2 [Moles/Vol] 20 mmol/L Low 21-31 [facility] Comment on above: Performed By: #### H EMOGC #### [facility] (DEFAULT) [address] [place] [address] Creatinine [Mass/Vol] 1.16 mg/dL Normal 0.70-1.30 [facility] Comment on above: Performed By: #### H EMOGC #### [facility] (DEFAULT) [address] [place] [address] GFR/1.73 sq M.predicted among non-blacks MDRD (S/P/Bld) [Vol rate/Area] 66 mL/min/{1.73_m2} Normal >=60 [facility] Comment on above: Result Comment: Repo rted eGFR is based on the CKD-EPI 2020 equation using creatinine, age, and sex. Performed By: #### H EMO #### [facility] (DEFAULT) [address] [place] [address] Glucose [Mass/Vol] 105 mg/dL High 70-99 [facility] Comment on above: Performed By: #### H EMOGC #### [facility] (DEFAULT) [address] [place] [address] Osmolality [Osmolality] 290 mosm/kg Normal 278-305 [facility] Comment on above: Performed By: #### H EMOGC #### [facility] (DEFAULT) [address] [place] [address] Potassium [Moles/Vol] 4.6 mmol/L Normal 3.5-5.0 [facility] Comment on above: Result Comment: Mode rate Hemolysis Performed By: #### H EMOGC #### [facility] (DEFAULT) [address] [place] [address] Sodium [Moles/Vol] 136 mmol/L Normal 135-145 [facility] Comment on above: Performed By: #### H EMOGC #### [facility] (DEFAULT) [address] [place] [address] Urea nitrogen [Mass/Vol] 21 mg/dL Normal 7-25 [facility] Comment on above: Performed By: #### [facility] [place] #### [facility] (DEFAULT) [address] [place] [address] Urea nitrogen/Creatinine [Mass ratio] 18 mg/mg Normal [facility] Comment on above: Performed By: #### [facility] [place] #### [facility] (DEFAULT) [address] [place] [address] Anion gap [Moles/Vol] 14 mmol/L 7 - 17 mmol[facility] Chloride [Moles/Vol] 107 mmol/L 98 - 10 8 mmol/L [facility] CO2 [Moles/Vol] 20 mmol/L Low 21 - 31 mmol/L [facility] Creatinine [Mass/Vol] 1.16 mg/dL 0.70 - 1.30 mg/dL [facility] GFR/1.73 sq M.predicted CKD-EPI (S/P/Bld) [Vol rate/Area] 66 >=60 mL/min/1.[address] [facility] Comment on above: Reported eGFR is bas ed on the CKD-EPI 2020 equation using creatinine, age, and sex. Glucose [Mass/Vol] 105 mg/dL High 70 - 99 mg/dL [facility] Osmolality Calc [Osmolality] 290 [facility] Potassium [Moles/Vol] 4.6 mmol/L 3.5 - 5.0 mmol/L [facility] Comment on above: Moderate Hemolysis Sodium [Moles/Vol] 136 mmol/L 135 - 145 mmol/L [facility] Urea nitrogen [Mass/Vol] 21 mg/dL 7 - 25 mg/dL [facility] Urea nitrogen/Creatinine [Mass ratio] 18 mg/mg [facility] CT ANGIO BRAIN/NECKon 2021 CT ANGIO BRAIN/NECK [...] are unremarkable. No major anatomical variations at [place]. Anterior, middle and posterior cerebral [...] I have reviewed and approved this report. [facility] IMPRESSION: No proximal intracranial artery occlusion [...] are unremarkable. No major anatomical variations at [place]. Anterior, middle and posterior cerebral [...] are unremarkable. No major anatomical variations at [place]. Anterior, middle and posterior cerebral [...] I have reviewed and approved this report. [facility] Radiology Study observation (narrative) [facility] CT Head limitedon 07-12-2021 Radiology Study observation (narrative) [facility] Determination of erythrocyte mean corpuscular volume (MCV)on 07-12-2021 MCV (RBC) [Entitic vol] 90.5 fL 80-94 [facility] Work Phone: FIBRINOGEN, CLOTTABLEon 06-15 Fibrinogen-Clottable 225 mg/dL Normal 220-410 [facility] Comment on above: Result Comment: Func tional Fibrinogen (activity) levels can be affected by direct thrombin inhibitors such as heparins (>2.0 IU/ml) and dabigatran. Abnormal results should be interpreted with caution. Performed By: #### L [id number], [id number] #### [facility] (DEFAULT) [address] [place] [address] Fibrinogen Coag (PPP) [Mass/Vol] 225 mg/dL 220 - 410 mg/dL [facility] Comment on above: Functional Fibrinoge n (activity) levels can be affected by direct thrombin inhibitors such as heparins (>2.0 IU/ml) and dabigatran. Abnormal results should be interpreted with caution. Interpretation and review of laboratory results Normal [facility] GLUCOSE POCon 07-12-2021 Glucose [Mass/Vol] 93 mg/dL 70 - 99 mg/dL [facility] Comment on above: Notified RNread back Poc Sample Type VENO [facility] Test performed at ad dress of the patient encounter. [facility] HEPATIC FUNCTION PANELon Albumin [Mass/Vol] 4.5 g/dL Normal 3.5-5.0 [facility] Comment on above: Performed By: #### H EMOGC #### [facility] (DEFAULT) [address] [place] [address] ALP [Catalytic activity/Vol] 52 U/L Normal 32-126 [facility] Comment on above: Performed By: #### H EMOGC #### [facility] (DEFAULT) [address] [place] [address] ALT [Catalytic activity/Vol] 34 U/L Normal 10-52 [facility] Comment on above: Result Comment: Mode rate Hemolysis Performed By: #### H EMOGC #### [facility] (DEFAULT) [address] [place] [address] AST [Catalytic activity/Vol] 50 U/L High 10-39 [facility] Comment on above: Result Comment: Mode rate Hemolysis Performed By: #### H EMOGC #### [facility] (DEFAULT) [address] [place] [address]83 Bilirubin [Mass/Vol] 0.7 mg/dL Normal <1.5 [facility] Comment on above: Result Comment: Mode rate Hemolysis Performed By: #### H EMOGC #### [facility] (DEFAULT) [address] [place] [address] Bilirubin.indirect [Mass/Vol] 0.1 mg/dL Normal <0.3 [facility] Comment on above: Result Comment: Mode rate Hemolysis Performed By: #### H EMOGC #### [facility] (DEFAULT) [address] [place] [address] Protein [Mass/Vol] 7.7 g/dL Normal 6.4-8.3 [facility] Comment on above: Performed By: #### H EMOGC #### [facility] (DEFAULT) [address] [place] [address]4067 Albumin [Mass/Vol] 4.5 g/dL 3.5 - 5.0 g/dL [facility] ALP [Catalytic activity/Vol] 52 U/L 32 - 126 U/L [facility] ALT [Catalytic activity/Vol] 34 U/L 10 - 52 U/L [facility] Comment on above: Moderate Hemolysis AST [Catalytic activity/Vol] 50 U/L High 10 - 39 U/L [facility] Comment on above: Moderate Hemolysis Bilirubin [Mass/Vol] 0.7 mg/dL <1.5 [facility] Comment on above: Moderate Hemolysis Bilirubin.direct [Mass/Vol] 0.1 mg/dL <0.3 [facility] Comment on above: Moderate Hemolysis Protein [Mass/Vol] 7.7 g/dL 6.4 - 8.3 g/dL [facility] HIGH SENSITIVITY TROPONIN I - SINGLE ORDERon 07-12-2021 hs-Troponin I 8 ng/L Normal <53 [facility] Comment on above: Order Comment: Acute Coronary Syndrome (ACS): Initial Evaluation and Management:[email or web address] Performed By: #### [facility] #### [facility] (DEFAULT) [address] [place] [address] Interpretation and review of laboratory results Normal [facility] Troponin I.cardiac DL <= 0.01 ng/mL [Mass/Vol] 8 ng/L <53 [facility] Hematocrit Auto (Bld) [Volum e fraction]on 07-12-2021 Hematocrit (Bld) [Volume fraction] 38.2 % 40-54 [facility] Work Phone: INR in Blood by Coagulation assayon 07-12-2021 INR Coag (Bld) [Relative time] 1.1 {INR} [facility] Work Phone: Laboratory - Chemistry and C hemistry - challengeon 07-12-2021 CO2 [Moles/Vol] 24.0 mmol/L 21.0-32.0 [facility] Work Phone: Urea nitrogen/Creatinine [Mass ratio] 15.7 mg/mg 10-20 [facility] Work Phone: Laboratory - Coagulationon 0 07-12-2021 aPTT Coag (Bld) [Time] 28.8 s 24.1-36.2 Wo [facility] Work Phone: PT Coag (PPP) [Time] 14.3 s 11.7-14.[address] [facility] Work Phone: Laboratory - Hematology and Cell countson 07-12-2021 Erythrocyte distribution width (RBC) [Entitic vol] 46.7 fL 35.1-43.9 [facility] Work Phone: Erythrocyte distribution width (RBC) [Ratio] 14.2 % 11.6-14.6 [facility] Work Phone: Immature granulocytes/100 WBC (Bld) 0.600 % 0.0-0.9 [facility] Work Phone: Comment on above: IG% - Immature Granu locytes (promyelocytes, myelocytes and metamyelocytes) > 1% indicates that a LEFT SHIFT is Present. MCH (RBC) [Entitic mass] 30.3 pg 27.0-32.0 [facility] Work Phone: Nucleated RBC/100 WBC (Bld) [Ratio] 0 % 0-5 [facility] Work Phone: MCHC Auto (RBC) [Mass/Vol]on 07-12-2021 MCHC (RBC) [Mass/Vol] 33.5 g/dL 32-36 [facility] Work Phone: No Panel Informationon 07-12 [facility] Interpretation and review of laboratory results Abnormal [facility] Estimated Creatinine Clearance Calc 59.61 ml/min [facility] Work Phone: Estimated GFR (MDRD) Amer 75 mL/min >60 [facility] Work Phone: Comment on above: GFR Calc Estimated GFR (MDRD) Non-Af Amer 62 mL/min >60 [facility] Work Phone: Comment on above: Non- GFR Calc Troponin I High Sensitivity 9 pg/mL 3.0-78.0 [facility] Work Phone: Comment on above: Please Note: New Padmini t Units and Gender Specific Reference Ranges. For more information see Policy Stat Procedure [place] High Sensitivity Troponin (TNIH) and attachments. PTINR-STROKEon 07-12-2021 INR Coag (PPP) [Relative time] 1.2 {INR} High 0.9-1.1 [facility] Comment on above: Performed By: #### L [id number], [id number] #### [facility] (DEFAULT) [address] [address] PT Coag (PPP) [Time] 14.7 s High 11.9-14.2 [facility] Comment on above: Performed By: #### L [id number], [id number] #### [facility] (DEFAULT) [address] [place] [address] INR Coag (Bld) [Relative time] 1.2 {INR} High [facility] Interpretation and review of laboratory results Abnormal [facility] PT Coag (PPP) [Time] 14.[address] [facility] PTTon 07-12-2021 aPTT Coag (Bld) [Time] 27.7 s Normal 24.0-34.3 [facility] Comment on above: Performed By: #### L [id number], [id number] #### [facility] (DEFAULT) [address] [address] aPTT Coag (PPP) [Time] 27.7 s OS [facility] Interpretation and review of laboratory results Normal [facility] Platelets bldon 07-12-2021 Platelets (Bld) [#/Vol] 157 10*3/uL 150-450 [facility] Work Phone: Serum or plasma calcium nicole urement (mass/volume)on 07-12-2021 Calcium [Mass/Vol] 8.3 mg/dL 8.5-10.1 [facility] Work Phone: Serum or plasma creatinine m easurement (mass/volume)on 07-12-2021 Creatinine [Mass/Vol] 1.21 mg/dL 0.70-1.30 [facility] Work Phone: Comment on above: The validity of the calculated GFR & GFRAA in patients over 70 years has not been determined. Clinical correlation is essential. Serum or plasma urea nitroge n measurement (mass/volume)on 07-12-2021 Urea nitrogen [Mass/Vol] 19 mg/dL 7-18 [facility] Work Phone: TOXICOLOGY SCREEN URINE - UD RGOrdered By: Karo Christensen on 07-12-2021 Barbiturates Ql (U) Negative Cutoff: 200 ng/mL [facility] Cannabinoids Screen Ql (U) Negative Cutoff: 50 ng/mL [facility] Drugs identified Screen Nom (U) Gabapentin Diphenhydramine Citalopram Abnormal Negative [facility] Interpretation and review of laboratory results Abnormal [facility] For Medical Purposes Only. Nonforensic screen results are considered presumptive and no confirmatory testing will follow. Drugs are detected by immunoassay or Liquid Chromatography Mass Spectrometry (LC-MS/MS). The LC-MS/MS test was developed and its performance characteristics determined by the Toxicology Laboratory at [facility]. It has not been cleared or [...] Tramadol(50), Trazodone(25), Triazolam(100), Trifluoperazine (100),Venlafaxine(50), Verapamil(100), Zolpidem(200) [facility] TOXICOLOGY SCREEN URINE - UD RGon 07-12-2021 Barbiturates Negative Normal Cutoff: 200 ng/mL [facility] Comment on above: Order Comment: For M edical Purposes Only. Nonforensic screen results are considered presumptive and no confirmatory testing will follow. Drugs are detected by immunoassay or Liquid Chromatography Mass Spectrometry (LC-MS/MS). The LC-MS/MS test was developed and its performance characteristics determined by the Toxicology Laboratory at [facility]. It has not been cleared or [...] (200), Alphahydrozyalprazolam(200), Alprazolam(50), Amitriptyline(50), Amphetamine(250), Atenolol(500),Benzoylecgonine(50), Buprenorphine(100), Bupropion(25),Caffeine(65244),Chlordiazepoxide(50), Chlorpheniramine(100), Chlorpromazine(50), Citalopram(100), Clonazepam(200), Cocaine(25),Codeine(200), Cotinine(500),Desipramine(50), Desmethyldoxepin(100), Dextromethorphan(100), Diazepam(100), Dihydrocodeine(100), Diltazem(50), Diphenhydramine(100),Doxepin(100),EDDP/methadone(100), Ephedrine/Pseudoephedrine(100),Fentanyl(25),Flunitrazepam(100) ,Fluoxetine(200), Flurazepam(50),Gabapentin(1500), Haloperidol(25), Hydrocodone(100), Hydromorphone(200), Imipramine(50), Ketamine(25), Lidocaine(25),Lorazepam(100), Lysergide(LSD)(25),Maprotiline(200), MDA(250), MDMA(250), Meperidine(50),Midazolam (200),Methadone(50), Methamphetamine(500), Methylphenidate(50), Metoprolol(50),Morphine(200),Nalbuphine(50), Naloxone(200), Norbuprenorphine(300), Nordiazepam(100), Norfentanyl(50),Noroxycodone (100), Norpropoxyphene(50), Nortriptyline(50), Olanzapine(200),Oxazepam(200),Oxycodone(100),Oxymorphone(200), Phencyclidine(PCP)(25), Pheniramine(25), Pregabalin(1500), Promethazine(50), Propoxyphene(100), Propanolol(50), Quetiapine(25), Quinidine(500), Ranitidine(500), Risperidone(100), Sertraline(50),Temazepam(100), Thioridazine(100), Tramadol(50), Trazodone(25), Triazolam(100), Trifluoperazine (100),Venlafaxine(50), Verapamil(100), Zolpidem(200) Performed By: #### L [id number], [id number] #### [facility] (DEFAULT) [address] [place] [address] Cannabinoids Screen Ql (U) Negative Normal Cutoff: 50 ng/mL [facility] Comment on above: Order Comment: For M edical Purposes Only. Nonforensic screen results are considered presumptive and no confirmatory testing will follow. Drugs are detected by immunoassay or Liquid Chromatography Mass Spectrometry (LC-MS/MS). The LC-MS/MS test was developed and its performance characteristics determined by the Toxicology Laboratory at [facility]. It has not been cleared or [...] (200), Alphahydrozyalprazolam(200), Alprazolam(50), Amitriptyline(50), Amphetamine(250), Atenolol(500),Benzoylecgonine(50), Buprenorphine(100), Bupropion(25),Caffeine(79985),Chlordiazepoxide(50), Chlorpheniramine(100), Chlorpromazine(50), Citalopram(100), Clonazepam(200), Cocaine(25),Codeine(200), Cotinine(500),Desipramine(50), Desmethyldoxepin(100), Dextromethorphan(100), Diazepam(100), Dihydrocodeine(100), Diltazem(50), Diphenhydramine(100),Doxepin(100),EDDP/methadone(100), Ephedrine/Pseudoephedrine(100),Fentanyl(25),Flunitrazepam(100) ,Fluoxetine(200), Flurazepam(50),Gabapentin(1500), Haloperidol(25), Hydrocodone(100), Hydromorphone(200), Imipramine(50), Ketamine(25), Lidocaine(25),Lorazepam(100), Lysergide(LSD)(25),Maprotiline(200), MDA(250), MDMA(250), Meperidine(50),Midazolam (200),Methadone(50), Methamphetamine(500), Methylphenidate(50), Metoprolol(50),Morphine(200),Nalbuphine(50), Naloxone(200), Norbuprenorphine(300), Nordiazepam(100), Norfentanyl(50),Noroxycodone (100), Norpropoxyphene(50), Nortriptyline(50), Olanzapine(200),Oxazepam(200),Oxycodone(100),Oxymorphone(200), Phencyclidine(PCP)(25), Pheniramine(25), Pregabalin(1500), Promethazine(50), Propoxyphene(100), Propanolol(50), Quetiapine(25), Quinidine(500), Ranitidine(500), Risperidone(100), Sertraline(50),Temazepam(100), Thioridazine(100), Tramadol(50), Trazodone(25), Triazolam(100), Trifluoperazine (100),Venlafaxine(50), Verapamil(100), Zolpidem(200) Performed By: #### L [id number], [id number] #### [facility] (DEFAULT) [address] [place] [address] Drugs Detected Urine Tox Abnormal Negative [facility] Comment on above: Order Comment: For M edical Purposes Only. Nonforensic screen results are considered presumptive and no confirmatory testing will follow. Drugs are detected by immunoassay or Liquid Chromatography Mass Spectrometry (LC-MS/MS). The LC-MS/MS test was developed and its performance characteristics determined by the Toxicology Laboratory at [facility]. It has not been cleared or [...] (200), Alphahydrozyalprazolam(200), Alprazolam(50), Amitriptyline(50), Amphetamine(250), Atenolol(500),Benzoylecgonine(50), Buprenorphine(100), Bupropion(25),Caffeine(98937),Chlordiazepoxide(50), Chlorpheniramine(100), Chlorpromazine(50), Citalopram(100), Clonazepam(200), Cocaine(25),Codeine(200), Cotinine(500),Desipramine(50), Desmethyldoxepin(100), [...] pentin Diphenhydramine Citalopram Performed By: #### L [id number], [id number] #### [facility] (DEFAULT) [address] [place] [address] Thin prep Papanicolaou smear with manual screeningon 07-12-2021 Thin prep Papanicolaou smear with manual screening 07-27 [facility] Work Phone: URINE CULTUREon 07-12-2021 Bacteria identified Cx Nom (U) Normal [facility] Comment on above: Order Comment: For [...] performed. Performed By: #### U R #### [facility] (DEFAULT) [address] [address] URINE DIPSTICK; REFLEX MICRO SCOPY; REFLEX CULTURE PERFORMABLEon 07-12-2021 Appearance (U) Cloudy Abnormal Clear [facility] Color (U) Yellow Yellow [facility] Glucose Test strip (U) [Mass/Vol] Negative Negative [facility] Interpretation and review of laboratory results Abnormal [facility] Ketones (U) [Mass/Vol] Negative Negative [facility] Leukocyte esterase Test strip Ql (U) Moderate Abnormal Negative [facility] Nitrite Ql (U) Negative [facility] pH (U) 6.0 [pH] 5.0 - 7.0 [facility] Protein (U) [Mass/Vol] 30 mg/dL Abnormal Negative [facility] RBC (U) [#/Vol] Large Abnormal Negative [facility] Specific gravity (U) [Rel density] 1.015 [facility] Urobilinogen (U) [Mass/Vol] 1.0 E.U./dL 0.2 E.U/dL, 1.0 E.U/dL [facility] Appearance (U) Cloudy Abnormal Clear [facility] Comment on above: Performed By: #### L [id number], [id number] #### [facility] (DEFAULT) [address] [address] Blood Urine Large Abnormal Negative [facility] Comment on above: Performed By: #### L [id number], [id number] #### [facility] (DEFAULT) [address] [address] Color (U) Yellow Normal Yellow [facility] Comment on above: Performed By: #### L [id number], [id number] #### [facility] (DEFAULT) [address] [address] Glucose Ql (U) Negative Normal Negative [facility] Comment on above: Performed By: #### L [id number], [id number] #### [facility] (DEFAULT) [address] [address] Ketones Ql (U) Negative Normal Negative [facility] Comment on above: Performed By: #### L [id number], [id number] #### [facility] (DEFAULT) [address] [address] Leukocyte esterase Test strip Ql (U) Moderate Abnormal Negative [facility] Comment on above: Performed By: #### L [id number], [id number] #### [facility] (DEFAULT) [address] [place] [address] Nitrites Urine Negative Normal Negative [facility] Comment on above: Performed By: #### L [id number], [id number] #### [facility] (DEFAULT) [address] [place] [address] pH (U) 6.0 [pH] Normal 5.0-7.0 [facility] Comment on above: Performed By: #### L [id number], [id number] #### [facility] (DEFAULT) [address] [place] [address] Protein Urine 30 mg/dL Abnormal Negative [facility] Comment on above: Performed By: #### L [id number], [id number] #### [facility] (DEFAULT) [address] [address] Specific Sunol Urine 1.015 Normal 1.001 -1.03 5 [facility] Comment on above: Performed By: #### L [id number], [id number] #### [facility] (DEFAULT) [address] [place] [address] Urobilinogen Urine 1.0 E.U./dL Normal 0.2 E.U/dL, 1.0 E.U/dL [facility] Comment on above: Performed By: #### L [id number], [id number] #### [facility] (DEFAULT) [address] [place] [address] URINE MICROSCOPIC WITH REFLE X TO CULTUREOrdered By: Kalyn Metcalf on 07-12-2021 Bacteria LM Ql (Urine sed) TRACE Abnormal ABSENT [facility] Epithelial cells.squamous LM Ql (Urine sed) 1/hpf = 1+ 1/hpf = 1+, 2-5/hpf = 2+, 0/hpf = 0+, ABSENT [facility] Interpretation and review of laboratory results Abnormal [facility] RBC LM.HPF (Urine sed) [#/Area] /[HPF] Abnormal 0 - 2 /HPF [facility] WBC LM.HPF (Urine sed) [#/Area] /[HPF] Abnormal 0 - 5 /HPF [facility] URINE MICROSCOPIC WITH REFLE X TO CULTUREon 07-12-2021 Bacteria TRACE Abnormal ABSENT [facility] Comment on above: Performed By: #### Say SEGOVIA [id number] #### [facility] (DEFAULT) [address] [place] [address] [id number] RBC LM.HPF (Urine sed) [#/Area] /[HPF] Abnormal 0-2 [facility] Comment on above: Performed By: #### Say SEGOVIA, [id number] #### [facility] (DEFAULT) [address] [place] [address]15 Squamous/Epithelial Cells 1/hpf = 1+ Normal 1/hpf = 1+, 2-5/hpf = 2+, 0/hpf = 0+, ABSENT [facility] Comment on above: Performed By: #### Say SEGOVIA [id number] #### [facility] (DEFAULT) [address] [place] [address] 88886 WBC LM.HPF (Urine sed) [#/Area] /[HPF] Abnormal 0-5 [facility] Comment on above: Performed By: #### Say SEGOVIA [id number] #### [facility] (DEFAULT) [address] [place] [address] 37580 VENOUS BLOOD GAS PLUS LACTAT Ernesto 07-12-2021 Base Excess -1.6 mmol/L Normal -3.0-3.0 [facility] Comment on above: Performed By: #### Say SEGOVIA, [id number] #### [facility] (DEFAULT) [address] [place] [address] 25545 HCO3 (Bld) [Moles/Vol] 24 mmol/L Normal 22-29 [facility] Comment on above: Performed By: #### Say [id number], [id number] #### [facility] (DEFAULT) [address] [place] [address] 03734 Lactate, Whole Blood 1.5 mmol/L Normal 0.5-1.6 [facility] Comment on above: Performed By: #### L [id number], [id number] #### [facility] (DEFAULT) [address] [place] [address] 80158 PCO2 46 mm Hg Normal 36-52 [facility] Comment on above: Performed By: #### L [id number], [id number] #### [facility] (DEFAULT) [address] [place] [address] 65967 pH (Bld) 7.33 [pH] Normal 7.32-7.43 [facility] Comment on above: Performed By: #### L [id number], [id number] #### [facility] (DEFAULT) [address] [place] [address] 72417 PO2 54 mm Hg Normal [facility] Comment on above: Result Comment: Veno us pO2 is not recommended for the evaluation of oxygen status, clinical correlation is recommended. Performed By: #### L [id number], [id number] #### [facility] (DEFAULT) [address] [place] [address] 48551 sO2 87 % High 70-80 [facility] Comment on above: Performed By: #### L [id number], [id number] #### [facility] (DEFAULT) [address] [place] [address] 26875 Base excess Calc (Bld) [Moles/Vol] -1.6000 mmol/L -3.0 - 3.0 mmol/L [facility] CO2 (Bld) [Partial pressure] 46 mm[Hg] [facility] HCO3 (Bld) [Moles/Vol] 24 mmol/L 22 - 29 mmol/L [facility] Interpretation and review of laboratory results Abnormal [facility] Lactate [Moles/Vol] 1.5 mmol/L 0.5 - 1. 6 mmol/L [facility] Oxygen (Bld) [Partial pressure] 54 mm[Hg] mm Hg [facility] Comment on above: Venous pO2 is not re commended for the evaluation of oxygen status, clinical correlation is recommended. Oxygen saturation in Blood 87 % High 70 - 80 % [facility] pH (Bld) 7.33 [pH] [facility] 07[facility]-19 XR ABDOMEN [...] age. IMPRESSION: No acute radiographic findings. Normal [facility] XR Abdomen Single viewon IMPRESSION: No [...] age. IMPRESSION IMPRESSION: No acute radiographic findings. [facility] Radiology Study observation (narrative) [facility] XR Abdomen Single viewOrdere d By: Carlos Adhikari on 07-12-2021 [facility] Work Phone: No Panel Informationon 03-24 Culture Urine 10,000 - 50,000 cfu/ ml Multiple bacterial morphotypes present. Probable Contamination. Suggest recollection if clinically indicated. [facility] Work Phone: Office Visiton 11-12-2016 Dietary management education, guidance, and counseling (procedure) yes Invalid Interpretation Code [facility] Work Phone: [phone] Documentation of current medications (procedure) Done Invalid Interpretation Code [facility] Work Phone: [phone] Fall risk assessment Yes Invalid Interpretation Code [facility] Work Phone: [phone] Protein mass conc Done [facility] Work Phone: [phone] Tobacco smoking status NHIS Never smoker [facility] Work Phone: [phone] Tobacco use HS Never smoker Invalid Interpretation Code [facility] Work Phone: [phone] Clinical Lists Update: Prelo appeals analyst 11-11-2016 Left ventricular Ejection fraction 70 % Invalid Interpretation Code [facility] Work Phone: Office Visiton 04-30-2016 Protein mass conc Done [facility] Work Phone: [phone] Microbiology: Culture, Urine on 04-11-2016 CUUR Tobramycin $ <=1 S [facility] Work Phone: [phone] GE use only - for [employer] import when terms are not otherwise specified Tobramycin $ <=1 S Invalid Interpretation Code [facility] Work Phone: Office Visiton 05-15-2015 Tobacco smoking status NHIS Never smoker [facility] Work Phone: [phone] Clinical Lists Update: Prelo appeals analyst 04-02-2015 Alkaline phosphatase (ALP) 67 U/L Invalid Interpretation Code [facility] Work Phone: [phone] ALP enzyme act/vol (Bld) 67 U/L [facility] Work Phone: [phone] ALT enzyme act/vol 24 U/L Invalid Interpretation Code [facility] Work Phone: [phone] AST enzyme act/vol 16 U/L Invalid Interpretation Code [facility] Work Phone: [phone] Bilirubin mass conc 0.2 mg/dL Invalid Interpretation Code [facility] Work Phone: [phone] Chloride molar conc 107 mmol/L Invalid Interpretation Code [facility] Work Phone: [phone] CO2 26 mmol/L Invalid Interpretation Code [facility] Work Phone: [phone] CO2 ppres (BldV) 26 mmol/L [facility] Work Phone: [phone] Creatinine mass conc 0.63 mg/dL Invalid Interpretation Code [facility] Work Phone: [phone] Glucose 80 mg/dL Invalid Interpretation Code [facility] Work Phone: [phone] Glucose mass conc 80 mg/dL [facility] Work Phone: [phone] Hematocrit (HCT) 34.0 % Invalid Interpretation Code [facility] Work Phone: [phone] Hematocrit Volume Fraction (Bld) 34.0 % [facility] Work Phone: [phone] Hemoglobin mass conc (Bld) 11.1 g/dL Invalid Interpretation Code [facility] Work Phone: [phone] MCV 88.2 fL Invalid Interpretation Code [facility] Work Phone: [phone] MCV Entitic volume (RBC) 88.2 fL [facility] Work Phone: [phone] Platelets 142 10*3/mm3 Invalid Interpretation Code [facility] Work Phone: [phone] Platelets #/vol (Bld) 142 10*3/mm3 [facility] Work Phone: [phone] Potassium molar conc 3.7 mmol/L Invalid Interpretation Code [facility] Work Phone: [phone] Sodium molar conc 138 mmol/L Invalid Interpretation Code [facility] Work Phone: [phone] Urea nitrogen mass conc 18 mg/dL Invalid Interpretation Code [facility] Work Phone: [phone] WBC #/vol (Bld) 5.7 10*3/uL [facility] Work Phone: [phone] WBC (Leukocytes) 5.7 10*3/uL Invalid Interpretation Code [facility] Work Phone: [phone] Clinical Lists Update: Prelo appeals analyst 02-19-2015 Magnesium mass conc 2.1 mg/dL Invalid Interpretation Code [facility] Work Phone: [phone] Clinical Lists Update: Prelo appeals analyst 02-17-2015 Albumin mass conc 3.2 g/dL Invalid Interpretation Code [facility] Work Phone: [phone] Replaced Document: Sabino Alston CG Observationson 08-15-2014 EKG QRS axis 43 deg [facility] Work Phone: [phone] electrocardiogram interpretation Marked sinus Bradycardia BORDERLINE RHYTHM Invalid Interpretation Code [facility] Work Phone: [phone] Interpretation Marked sinus Bradyca rdia BORDERLINE RHYTHM [facility] Work Phone: [phone] P Neon 42 deg [facility] Work Phone: [phone] P wave axis, electrocardiogram 42 deg Invalid Interpretation Code [facility] Work Phone: [phone] OH Interval 180 ms [facility] Work Phone: [phone] OH interval, electrocardiogram 180 ms Invalid Interpretation Code [facility] Work Phone: [phone] Pulse (Heart Rate) 46 /min Invalid Interpretation Code [facility] Work Phone: [phone] QRS axis, electrocardiogram 43 deg Invalid Interpretation Code [facility] Work Phone: [phone] QRS Duration 104 ms [facility] Work Phone: [phone] QRS duration, electrocardiogram 104 ms Invalid Interpretation Code [facility] Work Phone: [phone] QT Interval new path ms [facility] Work Phone: [phone] QT interval, electrocardiogram new path ms Invalid Interpretation Code [facility] Work Phone: [phone] T Neon 55 deg [facility] Work Phone: [phone] T wave axis, electrocardiogram 55 deg Invalid Interpretation Code [facility] Work Phone: [phone] Lab Report: Basic Metabolic Profile (BMP)on 07-16-2014 Anion gap 8 mmol/L Invalid Interpretation Code 07-27 [facility] Work Phone: [phone] Anion gap molar conc 8 mmol/L 07-[address] [facility] [address] [facility] Work Phone: [phone] Calcium mass conc 8.8 mg/dL Invalid Interpretation Code 8.5-10.1 [facility] Work Phone: [phone] eGFR (non-black) 96 mL/min/{1.73_m2} Invalid Interpretation Code >60 [facility] Work Phone: [phone] EST GFR - AA 96 mL/min >60 [facility] Work Phone: [phone] GFR/1.73 sq M predicted among non-blacks MDRD vol rate/area (S/P/Bld) 79 mL/min/{1.73_m2} Invalid Interpretation Code >60 [facility] Work Phone: [phone] Urea nitrogen/Creatinine mass ratio 17.0 RATIO Invalid Interpretation Code 10-20 [facility] Work Phone: [phone] Office Visiton 07-12-2014 cardiac risk group B Invalid Interpretation Code [facility] Work Phone: [phone] General cardiovascular disease 10Y risk [#] [place] Not enough information Invalid Interpretation Code [facility] Work Phone: [phone] Clinical Lists Update: Prelo appeals analyst 06-09-2014 Erythrocytes (RBC) 3.67 10*6/uL Invalid Interpretation Code [facility] Work Phone: [phone] MCH 30.5 pg Invalid Interpretation Code [facility] Work Phone: [phone] MCH Entitic mass (RBC) 30.5 pg [facility] Work Phone: [phone] MCHC 34.8 g/dL Invalid Interpretation Code [facility] Work Phone: [phone] MCHC mass conc (RBC) 34.8 g/dL [facility] Work Phone: [phone] RBC #/vol (Bld) 3.67 10*6/uL [facility] Work Phone: [phone] Clinical Lists Update: Prelo appeals analyst 06-08-2014 Thyrotropin Qn 4.52 u[iU]/mL High [facility] Work Phone: [phone] Culture, urine Bacteria identified Cx Nom (U) Escherichia coli [facility] Work Phone: Bacteria identified Cx Nom (U) Pseudomonas aeroginosa [facility] Work Phone: Laboratory - Microbiology an d Antimicrobial susceptibility Bacteria identified Cx Nom (Bld) Escherichia coli [facility] Work Phone: Lower GI hemoglobin IA Ql (S tl) Stool Occult Blood (DEV) Positive [facility] Work Phone: Vital Signs Date Time Vital Sign Value Performing Clinician Facility 08-08-2024 14:31-0400 Body height 177.[address] Mallory Mcpherson DO Work Phone: [facility] 08-08-2024 06:51-0400 Body mass index (BMI) [Ratio] 35.9 kg/m2 Dr. Mallory Mcpherson DO Work Phone: [facility] 08-08-2024 06:51-0400 Body weight 113.[address] Mallory Mcpherson DO Work Phone: [facility] 08-08-2024 06:51-0400 Diastolic blood pressure 62 mm[Hg] Dr. Mallory Mcpherson DO Work Phone: [facility] 08-08-2024 06:51-0400 Heart rate 58 /min Dr. Mallory Mcpherson DO Work Phone: [facility] 08-08-2024 06:51-0400 Respiratory rate 18 /min Dr. Mallory Mcpherson DO Work Phone: [facility] 08-08-2024 06:51-0400 SaO2% (BldA) [Mass fraction] 96 % Dr. Mallory Mcpherson DO Work Phone: [facility] 08-08-2024 06:51-0400 Systolic blood pressure 120 mm[Hg] Dr. Mallory Mcpherson DO Work Phone: [facility] 05-01-2024 15:00-0500 Body temperature 98.7 [degF] Dr. Mallory Mcpherson DO Work Phone: [facility] 05-01-2024 15:00-0500 Diastolic blood pressure 66 mm[Hg] Dr. Mallory Mcpherson DO Work Phone: [facility] 05-01-2024 15:00-0500 Heart rate 78 /min Dr. Mallory Mcpherson DO Work Phone: [facility] 05-01-2024 15:00-0500 Respiratory rate 16 /min Dr. Mallory Mcpherson DO Work Phone: [facility] 05-01-2024 15:00-0500 SaO2% (BldA) [Mass fraction] 97 % Dr. Mallory Mcpherson DO Work Phone: [facility] 05-01-2024 15:00-0500 Systolic blood pressure 127 mm[Hg] Dr. Mallory Mcpherson DO Work Phone: [facility] 04-26-2024 12:14-0500 Body weight 107.[address] Mallory Mcpherson DO Work Phone: [facility] 04-25-2024 14:00-0500 Body mass index (BMI) [Ratio] 33.8 kg/m2 Dr. Mallory Mcpherson DO Work Phone: [facility] 05-04-2023 11:32-0500 Body height 182.[address] Mallory Mcpherson Work Phone: [facility] 05-04-2023 11:32-0500 Body mass index (BMI) [Ratio] 35.9 kg/m2 Dr. Mallory Mcpherson Work Phone: [facility] 05-04-2023 11:32-0500 Body weight 120.[address] Mallory Mcpherson Work Phone: [facility] 05-04-2023 11:32-0500 Diastolic blood pressure 75 mm[Hg] Dr. Mallory Mcpherson Work Phone: [facility] 05-04-2023 11:32-0500 Heart rate 61 /min Dr. Mallory Mcpherson Work Phone: [facility] 05-04-2023 11:32-0500 Respiratory rate 18 /min Dr. Mallory Mcpherson Work Phone: [facility] 05-04-2023 11:32-0500 SaO2% (BldA) [Mass fraction] 98 % Dr. Mallory Mcpherson Work Phone: [facility] 05-04-2023 11:32-0500 Systolic blood pressure 124 mm[Hg] Dr. Mallory Mcpherson Work Phone: [facility] 11-04-2022 15:01-0400 Body height 182.[address] Mallory Mcpherson Work Phone: [facility] 11-04-2022 15:01-0400 Body mass index (BMI) [Ratio] 34.2 kg/m2 Dr. Mallory Mcpherson Work Phone: [facility] 11-04-2022 15:01-0400 Body weight 114.[address] Mallory Mcpherson Work Phone: [facility] 11-04-2022 15:01-0400 Diastolic blood pressure 82 mm[Hg] Dr. Mallory Mcpherson Work Phone: [facility] 11-04-2022 15:01-0400 Heart rate 68 /min Dr. Mallory Mcpherson Work Phone: [facility] 11-04-2022 15:01-0400 Respiratory rate 18 /min Dr. Mallory Mcpherson Work Phone: [facility] 11-04-2022 15:01-0400 SaO2% (BldA) [Mass fraction] 96 % Dr. Mallory Mcpherson Work Phone: [facility] 11-04-2022 15:01-0400 Systolic blood pressure 155 mm[Hg] Dr. Mallory Mcpherson Work Phone: [facility] 10-15-2022 17:50-0400 Diastolic blood pressure 66 mm[Hg] Dr. Mallory Mcpherson Work Phone: [facility] 10-15-2022 17:50-0400 Heart rate 78 /min Dr. Mallory Mcpherson Work Phone: [facility] 10-15-2022 17:50-0400 Respiratory rate 16 /min Dr. Mallory Mcpherson Work Phone: [facility] 10-15-2022 17:50-0400 Systolic blood pressure 128 mm[Hg] Dr. Mallory Mcpherson Work Phone: [facility] 10-15-2022 16:47-0400 SaO2% (BldA) [Mass fraction] 96 % Dr. Mallory Mcpherson Work Phone: [facility] 10-15-2022 15:18-0400 Body height 182.[address] Mallory Mcpherson Work Phone: [facility] 10-15-2022 15:18-0400 Body mass index (BMI) [Ratio] 35.9 kg/m2 Dr. Mallory Mcpherson Work Phone: [facility] 10-15-2022 15:18-0400 Body temperature 98 [degF] Dr. Mallory Mcpherson Work Phone: [facility] 10-15-2022 15:18-0400 Body weight 120.[address] Mallory Mcpherson Work Phone: [facility] 08-28-2022 11:15-0400 Body temperature 98.6 [degF] Dr. Mallory Mcpherson Work Phone: [facility] 08-28-2022 11:15-0400 Diastolic blood pressure 76 mm[Hg] Dr. Mallory Mcpherson Work Phone: [facility] 08-28-2022 11:15-0400 Heart rate 56 /min Dr. Mallory Mcpherson Work Phone: [facility] 08-28-2022 11:15-0400 Respiratory rate 16 /min Dr. Mallory Mcpherson Work Phone: [facility] 08-28-2022 11:15-0400 SaO2% (BldA) [Mass fraction] 96 % Dr. Mallory Mcpherson Work Phone: [facility] 08-28-2022 11:15-0400 Systolic blood pressure 122 mm[Hg] Dr. Mallory Mcpherosn Work Phone: [facility] 08-26-2022 14:33-0400 Body height 175.[address] Mallory Mcpherson Work Phone: [facility] 08-26-2022 14:33-0400 Body weight 117.[address] Mallory Mcpherson Work Phone: [facility] 08-25-2022 14:24-0400 Body mass index (BMI) [Ratio] 38.1 kg/m2 Dr. Mallory Mcpherson Work Phone: [facility] 04-26-2022 14:31-0500 Body mass index (BMI) [Ratio] 35.7 kg/m2 Dr. Mallory Mcpherson Work Phone: [facility] 04-26-2022 14:31-0500 Body weight 112.[address] Mallory Mcpherson Work Phone: [facility] 04-26-2022 14:31-0500 Diastolic blood pressure 84 mm[Hg] Dr. Mallory Mcpherson Work Phone: [facility] 04-26-2022 14:31-0500 Heart rate 62 /min Dr. Mallory Mcpherson Work Phone: [facility] 04-26-2022 14:31-0500 Respiratory rate 18 /min Dr. Mallory Mcpherson Work Phone: [facility] 04-26-2022 14:31-0500 SaO2% (BldA) [Mass fraction] 98 % Dr. Mallory Mcpherson Work Phone: [facility] 04-26-2022 14:31-0500 Systolic blood pressure 143 mm[Hg] Dr. Mallory Mcpherson Work Phone: [facility] 12-04-2021 11:10-0400 Body height 172.[address] Mallory Mcpherson Work Phone: [facility] 12-04-2021 11:10-0400 Body mass index (BMI) [Ratio] 37.5 kg/m2 Dr. Mallory Mcpherson Work Phone: [facility] 12-04-2021 11:10-0400 Body weight 112.[address] Mallory Mcpherson Work Phone: [facility] 12-04-2021 11:10-0400 Diastolic blood pressure 66 mm[Hg] Dr. Mallory Mcpherson Work Phone: [facility] 12-04-2021 11:10-0400 Heart rate 59 /min Dr. Mallory Mcpherson Work Phone: [facility] 12-04-2021 11:10-0400 Respiratory rate 18 /min Dr. Mallory Mcpherson Work Phone: [facility] 12-04-2021 11:10-0400 Systolic blood pressure 118 mm[Hg] Dr. Mallory Mcpherson Work Phone: [facility] 09-19-2021 13:00-0400 Body temperature 98.1 [degF] Dr. Mallory Mcpherson Work Phone: [facility] Work Phone: 09-19-2021 13:00-0400 Diastolic blood pressure 61 mm[Hg] Dr. Mallory Mcpherson Work Phone: [facility] Work Phone: 09-19-2021 13:00-0400 Heart rate 68 /min Dr. Mallory Mcpherson Work Phone: [facility] Work Phone: 09-19-2021 13:00-0400 Respiratory rate 16 /min Dr. Mallory Mcpherson Work Phone: [facility] Work Phone: 09-19-2021 13:00-0400 SaO2% (BldA) [Mass fraction] 95 % Dr. Mallory Mcpherson Work Phone: [facility] Work Phone: 09-19-2021 13:00-0400 Systolic blood pressure 108 mm[Hg] Dr. Mallory Mcpherson Work Phone: [facility] Work Phone: 09-17-2021 10:28-0400 Body weight 105.[address] Mallory Mcpherson Work Phone: [facility] Work Phone: 09-16-2021 14:46-0400 Diastolic blood pressure 93 mm[Hg] Dr. Mallory Mcpherson Work Phone: [facility] Work Phone: 09-16-2021 14:46-0400 Heart rate 70 /min Dr. Mallory Mcpherson Work Phone: [facility] Work Phone: 09-16-2021 14:46-0400 Respiratory rate 18 /min Dr. Mallory Mcpherson Work Phone: [facility] Work Phone: 09-16-2021 14:46-0400 SaO2% (BldA) [Mass fraction] 98 % Dr. Mallory Mcpherson Work Phone: [facility] Work Phone: 09-16-2021 14:46-0400 Systolic blood pressure 124 mm[Hg] Dr. Mallory Mcpherson Work Phone: [facility] Work Phone: 09-11-2021 16:00-0400 Body temperature 98.7 [degF] Dr. Mallory Mcpherson Work Phone: [facility] Work Phone: 09-11-2021 16:00-0400 Diastolic blood pressure 67 mm[Hg] Dr. Mallory Mcpherson Work Phone: [facility] Work Phone: 09-11-2021 16:00-0400 Heart rate 66 /min Dr. Mallory Mcpherson Work Phone: [facility] Work Phone: 09-11-2021 16:00-0400 Respiratory rate 16 /min Dr. Mallory Mcpherson Work Phone: [facility] Work Phone: 09-11-2021 16:00-0400 SaO2% (BldA) [Mass fraction] 95 % Dr. Mallory Mcpherson Work Phone: [facility] Work Phone: 09-11-2021 16:00-0400 Systolic blood pressure 107 mm[Hg] Dr. Mallory Mcpherson Work Phone: [facility] Work Phone: 09-10-2021 13:51-0400 Body height [address] Mallory Mcpherson Work Phone: [facility] Work Phone: 09-10-2021 13:51-0400 Body weight 105.[address] Mallory Mcpherson Work Phone: [facility] Work Phone: 09-10-2021 08:19-0400 Heart rate 74 /min Dr. Mallory Mcpherson Work Phone: [facility] Work Phone: 09-10-2021 08:19-0400 Respiratory rate 16 /min Dr. Mallory Mcpherson Work Phone: [facility] Work Phone: 09-10-2021 06:39-0400 Body temperature 99.4 [degF] Dr. Mallory Mcpherson Work Phone: [facility] Work Phone: 09-10-2021 06:39-0400 Diastolic blood pressure 73 mm[Hg] Dr. Mallory Mcpherson Work Phone: [facility] Work Phone: 09-10-2021 06:39-0400 SaO2% (BldA) [Mass fraction] 94 % Dr. Mallory Mcpherson Work Phone: [facility] Work Phone: 09-10-2021 06:39-0400 Systolic blood pressure 145 mm[Hg] Dr. Mallory Mcpherson Work Phone: [facility] Work Phone: 09-09-2021 13:00-0400 Body weight 105.[address] Mallory Mcpherson Work Phone: [facility] Work Phone: 09-08-2021 14:55-0400 Diastolic blood pressure 71 mm[Hg] Dr. Mallory Mcpherson Work Phone: [facility] Work Phone: 09-08-2021 14:55-0400 Heart rate 89 /min Dr. Mallory Mcpherson Work Phone: [facility] Work Phone: 09-08-2021 14:55-0400 Respiratory rate 18 /min Dr. Mallory Mcpherson Work Phone: [facility] Work Phone: 09-08-2021 14:55-0400 SaO2% (BldA) [Mass fraction] 94 % Dr. Mallory Mcpherson Work Phone: [facility] Work Phone: 09-08-2021 14:55-0400 Systolic blood pressure 115 mm[Hg] Dr. Mallory Mcpherson Work Phone: [facility] Work Phone: 09-07-2021 12:37-0400 Diastolic blood pressure 67 mm[Hg] Dr. Mallory Mcpherson Work Phone: [facility] Work Phone: 09-07-2021 12:37-0400 Systolic blood pressure 120 mm[Hg] Dr. Mallory Mcpherson Work Phone: [facility] Work Phone: 09-07-2021 11:56-0400 Heart rate 64 /min Dr. Mallory Mcpherson Work Phone: [facility] Work Phone: 09-07-2021 11:56-0400 Respiratory rate 18 /min Dr. Mallory Mcpherson Work Phone: [facility] Work Phone: 09-07-2021 11:56-0400 SaO2% (BldA) [Mass fraction] 94 % Dr. Mallory Mcpherson Work Phone: [facility] Work Phone: 09-07-2021 09:57-0400 Body height [address] Mallory Mcpherson Work Phone: [facility] Work Phone: 09-07-2021 09:57-0400 Body mass index (BMI) [Ratio] 34 kg/m2 Dr. Mallory Mcpherson Work Phone: [facility] Work Phone: 09-07-2021 09:57-0400 Body temperature 98.4 [degF] Dr. Mallory Mcpherson Work Phone: [facility] Work Phone: 09-07-2021 09:57-0400 Body weight 101.[address] Mallory Mcpherson Work Phone: [facility] Work Phone: 09-07-2021 06:24-0400 Body temperature 98.8 [degF] Dr. Mallory Mcpherson Work Phone: [facility] Work Phone: 09-07-2021 06:24-0400 Diastolic blood pressure 70 mm[Hg] Dr. Mallory Mcpherson Work Phone: [facility] Work Phone: 09-07-2021 06:24-0400 Heart rate 66 /min Dr. Mallory Mcpherson Work Phone: [facility] Work Phone: 09-07-2021 06:24-0400 Systolic blood pressure 139 mm[Hg] Dr. Mallory Mcpherson Work Phone: [facility] Work Phone: 09-06-2021 14:17-0400 Respiratory rate 20 /min Dr. Mallory Mcpherson Work Phone: [facility] Work Phone: 09-06-2021 14:17-0400 SaO2% (BldA) [Mass fraction] 98 % Dr. Mallory Mcpherson Work Phone: [facility] Work Phone: 09-05-2021 14:51-0400 Body mass index (BMI) [Ratio] 34.8 kg/m2 Dr. Mallory Mcpherson Work Phone: [facility] Work Phone: 09-05-2021 14:51-0400 Body weight 106.[address] Mallory Mcpherson Work Phone: [facility] Work Phone: 09-05-2021 14:51-0400 Diastolic blood pressure 68 mm[Hg] Dr. Mallory Mcpherson Work Phone: [facility] Work Phone: 09-05-2021 14:51-0400 Heart rate 61 /min Dr. Mallory Mcpherson Work Phone: [facility] Work Phone: 09-05-2021 14:51-0400 Respiratory rate 18 /min Dr. Mallory Mcpherson Work Phone: [facility] Work Phone: 09-05-2021 14:51-0400 SaO2% (BldA) [Mass fraction] 97 % Dr. Mallory Mcpherson Work Phone: [facility] Work Phone: 09-05-2021 14:51-0400 Systolic blood pressure 111 mm[Hg] Dr. Mallory Mcpherson Work Phone: [facility] Work Phone: 09-03-2021 16:33-0400 Body weight 108.[address] Mallory Mcpherson Work Phone: [facility] Work Phone: 08-17-2021 23:00-0400 Body mass index (BMI) [Ratio] 35.2 kg/m2 Dr. Mallory Mcpherson Work Phone: [facility] Work Phone: 08-17-2021 15:35-0400 Body temperature 97.9 [degF] Dr. Mallory Mcpherson Work Phone: [facility] Work Phone: 08-17-2021 15:35-0400 Diastolic blood pressure 57 mm[Hg] Dr. Mallory Mcpherson Work Phone: [facility] Work Phone: 08-17-2021 15:35-0400 Heart rate 62 /min Dr. Mallory Mcpherson Work Phone: [facility] Work Phone: 08-17-2021 15:35-0400 Respiratory rate 16 /min Dr. Mallory Mcpherson Work Phone: [facility] Work Phone: 08-17-2021 15:35-0400 SaO2% (BldA) [Mass fraction] 96 % Dr. Mallory Mcpherson Work Phone: [facility] Work Phone: 08-17-2021 15:35-0400 Systolic blood pressure 110 mm[Hg] Dr. Mallory Mcpherson Work Phone: [facility] Work Phone: 08-16-2021 23:00-0400 Body mass index (BMI) [Ratio] 34.2 kg/m2 Dr. Mallory Mcpherson Work Phone: [facility] Work Phone: 08-15-2021 06:00-0400 Body weight 107.[address] Mallory Mcpherson Work Phone: [facility] Work Phone: 08-08-2021 12:47-0400 Body height 175.[address] Mallory Mcpherson Work Phone: [facility] Work Phone: 07-25-2021 03:30-0400 Body temperature 97.3 [degF] Michael Roblero MD Work Phone: [facility] 07-25-2021 03:30-0400 Diastolic blood pressure 82 mm[Hg] Michael Roblero MD Work Phone: [facility] 07-25-2021 03:30-0400 Heart rate 67 /min Michael Roblero MD Work Phone: [facility] 07-25-2021 03:30-0400 Respiratory rate 18 /min Michael Roblero MD Work Phone: [facility] 07-25-2021 03:30-0400 SaO2% (BldA) [Mass fraction] 95 % Michael Roblero MD Work Phone: [facility] 07-25-2021 03:30-0400 Systolic blood pressure 158 mm[Hg] Michael Roblero MD Work Phone: [facility] 07-22-2021 20:06-0400 Body height 175.3 cm Michael Roblero MD Work Phone: [facility] 07-22-2021 15:04-0400 Body mass index (BMI) [Ratio] 34.09 kg/m2 Michael Roblero MD Work Phone: [facility] 07-22-2021 15:04-0400 Body weight 104.7 kg Michael Roblero MD Work Phone: [facility] 07-22-2021 12:00-0400 Diastolic blood pressure 66 mm[Hg] Dr. Mallory Mcpherson Work Phone: [facility] Work Phone: 07-22-2021 12:00-0400 Heart rate 57 /min Dr. Mallory Mcpherson Work Phone: [facility] Work Phone: 07-22-2021 12:00-0400 Respiratory rate 14 /min Dr. Mallory Mcpherson Work Phone: [facility] Work Phone: 07-22-2021 12:00-0400 SaO2% (BldA) [Mass fraction] 98 % Dr. Mallory Mcpherson Work Phone: [facility] Work Phone: 07-22-2021 12:00-0400 Systolic blood pressure 120 mm[Hg] Dr. Mallory Mcpherson Work Phone: [facility] Work Phone: 07-22-2021 11:30-0400 Body height 175.[address] Mallory Mcpherson Work Phone: [facility] Work Phone: 07-22-2021 11:30-0400 Body mass index (BMI) [Ratio] 35.3 kg/m2 Dr. Mallory Mcpherson Work Phone: [facility] Work Phone: 07-22-2021 11:30-0400 Body weight 108.[address] Mallory Mcpherson Work Phone: [facility] Work Phone: 07-22-2021 11:15-0400 Body temperature 96 [degF] Dr. Mallory Mcpherson Work Phone: [facility] Work Phone: 07-22-2021 11:15-0400 Diastolic blood pressure 83 mm[Hg] Dr. Mallory Mcpherson Work Phone: [facility] Work Phone: 07-22-2021 11:15-0400 Heart rate 78 /min Dr. Mallory Mcpherson Work Phone: [facility] Work Phone: 07-22-2021 11:15-0400 Respiratory rate 20 /min Dr. Mallory Mcpherson Work Phone: [facility] Work Phone: 07-22-2021 11:15-0400 Systolic blood pressure 176 mm[Hg] Dr. Mallory Mcpherson Work Phone: [facility] Work Phone: 07-22-2021 07:38-0400 Body temperature 97.1 [degF] Dr. Mallory Mcpherson Work Phone: [facility] Work Phone: 07-22-2021 07:38-0400 Diastolic blood pressure 59 mm[Hg] Dr. Mallory Mcpherson Work Phone: [facility] Work Phone: 07-22-2021 07:38-0400 Heart rate 54 /min Dr. Mallory Mcpherson Work Phone: [facility] Work Phone: 07-22-2021 07:38-0400 Respiratory rate 16 /min Dr. Mallory Mcpherson Work Phone: [facility] Work Phone: 07-22-2021 07:38-0400 SaO2% (BldA) [Mass fraction] 94 % Dr. Mallory Mcpherson Work Phone: [facility] Work Phone: 07-22-2021 07:38-0400 Systolic blood pressure 135 mm[Hg] Dr. Mallory Mcpherson Work Phone: [facility] Work Phone: 07-21-2021 19:30-0400 Body mass index (BMI) [Ratio] 31.3 kg/m2 Dr. Mallory Mcpherson Work Phone: [facility] Work Phone: 07-21-2021 09:26-0400 Body weight 108.[address] Mallory Mcpherson Work Phone: [facility] Work Phone: 07-19-2021 14:04-0400 Body height 175.[address] Mallory Mcpherson Work Phone: [facility] Work Phone: 07-18-2021 08:00-0400 Body temperature 98.29 [degF] Satinder Buckner MD Work Phone: [facility] 07-18-2021 08:00-0400 Diastolic blood pressure 79 mm[Hg] Satinder Buckner MD Work Phone: [facility] 07-18-2021 08:00-0400 Heart rate 60 /min Satinder Buckner MD Work Phone: [facility] 07-18-2021 08:00-0400 Respiratory rate 18 /min Satinder Buckner MD Work Phone: [facility] 07-18-2021 08:00-0400 SaO2% (BldA) [Mass fraction] 94 % Satinder Buckner MD Work Phone: [facility] 07-18-2021 08:00-0400 Systolic blood pressure 171 mm[Hg] Satinder Buckner MD Work Phone: [facility] 07-17-2021 07:39-0400 Body height 175.3 cm Satinder Buckner MD Work Phone: [facility] 07-17-2021 07:39-0400 Body mass index (BMI) [Ratio] 31.43 kg/m2 Satinder Buckner MD Work Phone: [facility] 07-17-2021 07:39-0400 Body weight 96.6 kg Satinder Buckner MD Work Phone: [facility] 07-12-2021 10:55-0400 Body temperature 97.6 [degF] Dr. Mallory Mcpherson Work Phone: [facility] Work Phone: 07-12-2021 10:55-0400 Diastolic blood pressure 70 mm[Hg] Dr. Mallory Mcpherson Work Phone: [facility] Work Phone: 07-12-2021 10:55-0400 Heart rate 65 /min Dr. Mallory Mcpherson Work Phone: [facility] Work Phone: 07-12-2021 10:55-0400 Respiratory rate 20 /min Dr. Mallory Mcpherson Work Phone: [facility] Work Phone: 07-12-2021 10:55-0400 SaO2% (BldA) [Mass fraction] 96 % Dr. Mallory Mcpherson Work Phone: [facility] Work Phone: 07-12-2021 10:55-0400 Systolic blood pressure 127 mm[Hg] Dr. Mallory Mcpherson Work Phone: [facility] Work Phone: 07-12-2021 10:30-0400 Inhaled oxygen flow rate 2 L/min Dr. Mallory Mcpherson Work Phone: [facility] Work Phone: 07-12-2021 09:35-0400 Body height 185.[address] Mallory Mcpherson Work Phone: [facility] Work Phone: 07-12-2021 09:35-0400 Body mass index (BMI) [Ratio] 34.1 kg/m2 Dr. Mallory Mcpherson Work Phone: [facility] Work Phone: 07-12-2021 09:35-0400 Body weight 117.[address] Mallory Mcpherson Work Phone: [facility] Work Phone: 11-12-2016 10:25-0400 BMI (Body Mass [...] BP Diastolic 64 mm[Hg] Lulu Rocha RN [facility] Work Phone: 04-30-2016 10:08-0500 BP Systolic 120 mm[Hg] Lulu Rocha RN [facility] Work Phone: 04-30-2016 10:08-0500 [...] Start: 11-13-2024 Emergency department patient visit Sum[place] Facility:[facility] Start: 11-09-2024 ambulatory Luis Carlos Gallardo Facility:[facility] Start: 10-25-[address] Luis Carlos izaguirre MD -Physical Therapy Work Phone: Start: 10-17-2024 End: 10-17-[address] Mallory Mcpherson DO Work Phone: -Laboratory Start: 10-17-2024 End: 10-17-[address] Miguel Carrillo DO -Laboratory Work Phone: Start: 10-17-2024 End: 10-17-2024 ambulatory Miguel Lorena Facility:[facility] Start: 10-15-2024 End: 10-15-[address] Mallory Mcpherson DO Work Phone: -[facility] Start: 10-15-2024 End: 10-15-[address] Iker Ratliff MD -[facility] Work Phone: Start: 09-27-[address] Luis Carlos izaguirre MD -Physical Therapy Work Phone: Start: 09-15-2024 End: 09-15-[address] Mallory Mcpherson DO Work Phone: -[facility] Start: 09-15-2024 End: 09-15-[address] Iker Ratliff MD -[facility] Work Phone: Start: 09-06-[address] Luis Carlos izaguirre MD -Physical Therapy Work Phone: Start: 08-29-[address] Luis Carlos izaguirre MD -Occupational Therapy Work Phone: Start: 08-16-[address] Luis Carlos izaguirre MD -Physical Therapy Work Phone: Start: 08-16-2024 End: 08-16-[address] Mallory Mcpherson DO Work Phone: [facility] Work Phone: Start: 08-16-2024 End: 08-16-2024 Patient encounter procedure Saundra Hernandez -[facility] Work Phone: Start: 08-08-2024 End: 08-08-2024 Patient encounter procedure Alessandra NGUYỄN -[facility] Work Phone: Start: 08-08-2024 End: 08-08-[address] Mallory Mcpherson DO Work Phone: [facility] Work Phone: Start: 08-08-[address] Luis Carlos izaguirre MD -Speech Therapy Work Phone: Start: 04-07-2024 End: 04-07-2024 ambulatory Luis Carlos Gallardo Facility:[facility] Start: 03-27-2024 ambulatory Luis Carlos Willie Sami Facility:[facility] Start: 03-27-2024 End: 05-01-2024 Evaluation and management of inpatient Dr. Luis Carlos Gallardo MD -Transitional Care Unit Start: 03-23-2024 ambulatory Sindi Navarro Facility :[facility] Start: 03-23-2024 End: 03-27-2024 Evaluation and management of inpatient Sindi Navarro Facility:[facility] Start: 02-28-2024 End: 03-23-2024 Evaluation and management of inpatient Luis Carlos Gallardo Facility:[facility] Start: 02-23-2024 ambulatory Chris Cavazos Fac ility:[facility] Start: 02-23-2024 End: 02-28-2024 Evaluation and management of inpatient Rhett Palma Facility:[facility] Start: 02-22-2024 ambulatory Sindi Say Navarro Facility :[facility] Start: 02-21-2024 End: 02-21-2024 Emergency department patient visit Jesse Yee Facility:[facility] Start: 02-14-2024 ambulatory Chrisgamaliel Tremaynehomeroneftaly Martinez cility:[facility] Start: 02-13-2024 End: 02-13-2024 ambulatory Ahmet Casas Facility:[facility] Start: 02-13-2024 ambulatory Rhett Palma Fac ility:[facility] Start: 02-13-2024 End: 02-17-2024 Evaluation and management of inpatient Sanjuanita Josette Koram Facility:[facility] Start: 02-12-2024 ambulatory Sanjuanita Josette Koram Facility :[facility] Start: 02-09-2024 End: 02-13-2024 ambulatory MALLORY MCPHERSON DO Facility:[facility] Start: 02-09-2024 End: 02-13-2024 Outreach Lab MALLORY MCPHERSON DO [facility] Start: 02-07-2024 End: 05-10-2024 ambulatory Luis Carlos Chi Sami Facility:[facility] Start: 02-01-2024 End: 02-01-2024 ambulatory Luis Carlos Willie Gallardo Facility:[facility] Start: 12-28-2023 End: 12-28-2023 ambulatory Mallory Ky Facility:[facility] Start: 11-25-2023 End: 11-29-2023 ambulatory MALLORY MCPHERSON DO Facility:[facility] Start: 11-25-2023 End: 11-29-2023 Outreach Lab SOMMER ARCE POLISHING MACHINE OPERATOR HELPER-ASSISTANT MAINTENANCE MANAGER [facility] Start: 11-22-2023 End: 11-22-2023 Emergency department patient visit Mallory Ky Facility:[facility] Start: 09-28-2023 End: 10-02-2023 ambulatory MALLORY MCPHERSON DO Facility:[facility] Start: 09-28-2023 End: 10-02-2023 Outreach Lab MALLORY MCPHERSON DO [facility] Start: 09-08-2023 End: 09-08-2023 ambulatory MALLORY MCPHERSON DO Facility:[facility] Start: 09-08-2023 End: 09-08-2023 Patient encounter procedure MALLORY GRANTY [facility] Start: 07-09-2023 End: 07-13-2023 ambulatory KIRBY LOPEZ POLISHING MACHINE OPERATOR HELPER-ASSISTANT MAINTENANCE MANAGER Facility:[facility] Start: 05-25-2023 End: 05-25-[address] Mallory Mcpherson Work Phone: [facility] Work Phone: Start: 05-25-2023 End: 05-25-[address] Mallory Mcpherson Work Phone: [facility]-Physical Therapy Work Phone: Start: 05-04-2023 End: 05-04-[address] Mallory Mcpherson Work Phone: [facility] Work Phone: Start: 04-11-2023 End: 04-11-[address] Mallory Mcpherson Work Phone: [facility] Work Phone: Start: 03-25-2023 End: 03-29-2023 ambulatory MALLORY MCPHERSON DO Facility:[facility] Start: 03-25-2023 End: 03-29-2023 Outreach Lab MALLORY [place] PEREZ [facility] Start: 03-11-2023 End: 03-11-[address] Mallory Mcpherson Work Phone: [facility] Work Phone: Start: 01-29-2023 End: 01-29-[address] [facility] Start: 11-04-2022 End: 11-04-[address] Mallory Mcpherson Work Phone: [facility] Work Phone: Start: 11-04-2022 End: 11-04-[address] Mallory Mcpherson Work Phone: [facility] Work Phone: Start: 11-02-[address] Lan Mcpherson Work Phone: [facility]-Speech Therapy Work Phone: Start: 10-15-2022 End: 10-15-2022 Emergency department patient visit Dr. Mallory Mcpherson Work Phone: [facility]-Emergency Department Work Phone: Start: 10-13-[address] Lan Mcpherson Work Phone: [facility]-Physical Therapy Work Phone: Start: 10-05-2022 End: 10-05-[address] Mallory Mcpherson Work Phone: [facility]-Speech Therapy Work Phone: Start: 08-31-2022 End: 09-04-2022 Outreach Lab MALLORY MCPHERSON DO [facility] Start: 08-28-2022 Non-patient / Non-visit Dr. Stefanie Mcpherson Work Phone: [facility] Start: 08-27-2022 Non-patient / Non-visit Dr. Stefanie Mcpherson Work Phone: [facility] Start: 08-26-2022 Non-patient / Non-visit Dr. Stefanie Mcpherson Work Phone: [facility] Start: 08-25-2022 Non-patient / Non-visit Dr. Stefanie Mcpherson Work Phone: [facility] Start: 08-25-2022 End: 08-28-2022 Evaluation and management of inpatient Dr. Mallory Mcpherson Work Phone: [facility]-Medical Surgical 3 Start: 08-18-[address] Lan Mcpherson Work Phone: [facility]-Speech Therapy Start: 06-18-2022 End: 06-18-[address] Mallory Mcpherson Work Phone: [facility] Start: 05-19-2022 End: 05-19-[address] Mallory Mcpherson Work Phone: [facility] Start: 03-26-2022 End: 03-26-[address] Mallory Mcpherson Work Phone: [facility] Work Phone: Start: 03-26-2022 End: 03-26-[address] 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 Mallory Mcpherson Work Phone: [facility] Start: 12-24-2021 End: 12-28-2021 Outreach Lab KASSIDY BRUCE POLISHING MACHINE OPERATOR HELPER-[facility] Start: 12-04-2021 End: 12-04-[address] Mallory Mcpherson Work Phone: [facility] Start: 09-16-2021 End: 09-16-[address] Mallory Mcpherson Work Phone: [facility] Start: 09-08-2021 End: 09-08-[address] Mallory Mcpherson Work Phone: [facility] Start: 09-07-2021 End: 09-07-2021 Emergency department patient visit Dr. Mallory Mcpherson Work Phone: [facility]-Emergency Department Start: 09-05-2021 End: 09-05-[address] Mallory Mcpherson Work Phone: [facility] Start: 08-17-2021 End: 09-19-2021 Evaluation and management of inpatient Dr. Mallory Mcpherson Work Phone: [facility]-Transitional Care Unit Start: 08-15-2021 Non-patient / Non-visit Dr. Stefanie Mcpherson Work Phone: [facility] Start: 08-11-2021 Non-patient / Non-visit Dr. Stefanie Mcpherson Work Phone: [facility] Start: 08-10-2021 Non-patient / Non-visit Dr. Stefanie Mcpherson Work Phone: [facility] Start: 08-08-2021 Non-patient / Non-visit Dr. Stefanie Mcpherson Work Phone: [facility] Start: 08-06-2021 Non-patient / Non-visit Dr. Stefanie Mcpherson Work Phone: [facility] Start: 08-05-2021 Non-patient / Non-visit Dr. Stefanie Mcpherson Work Phone: [facility] Start: 08-04-2021 Non-patient / Non-visit Dr. Stefanie Mcpherson Work Phone: [facility] Start: 08-01-2021 Non-patient / Non-visit Dr. Stefanie Mcpherson Work Phone: [facility] Start: 07-31-2021 Non-patient / Non-visit Dr. Stefanie cMpherson Work Phone: [facility] Start: 07-28-2021 Non-patient / Non-visit Dr. Stefanie Mcpherson Work Phone: [facility] Start: 07-25-2021 Non-patient / Non-visit Dr. Stefanie Mcpherson Work Phone: [facility] Start: 07-25-2021 End: 08-17-2021 Evaluation and management of inpatient Dr. Mallory Mcpherson Work Phone: [facility]-Rehab Unit Start: 07-23-2021 End: 07-23-[address] Mallory Mcpherson Work Phone: [facility] Start: 07-22-2021 End: 07-25-2021 Evaluation and management of inpatient ZACH LOZOYA Facility:[facility] Start: 07-22-2021 End: 07-25-2021 Evaluation and management of inpatient Michael Roblero MD Work Phone: [id number] Comment on above: Altered mental statu s Start: 07-22-2021 End: 07-22-2021 Evaluation and management of inpatient Dr. Mallory Mcpherson Work Phone: [facility]-Intensive Care Unit Start: 07-22-2021 Non-patient / Non-visit Dr. Stefanie Mcpherson Work Phone: [facility] Start: 07-18-2021 End: 07-22-2021 Evaluation and management of inpatient Dr. Mallory Mcpherson Work Phone: [facility]-Rehab Unit Start: 07-12-2021 End: 07-18-2021 Evaluation and management of inpatient COREEN RUSS Facility:[facility] Start: 07-12-2021 End: 07-18-2021 Evaluation and management of inpatient Satinder Buckner MD Work Phone: [id number] Comment on above: Stroke Start: 07-12-2021 End: 07-12-[address] Mallory Mcpherson Work Phone: [facility] Start: 07-12-2021 End: 07-12-2021 Emergency department patient visit Dr. Mallory Mcpherson Work Phone: [facility]-Emergency Department Start: 05-30-2021 Non-patient / Non-visit Dr. Stefanie Mcpherson Work Phone: [facility] Start: 05-30-2021 End: 05-30-[address] Mallroy Mcpherson Work Phone: [facility]-Cardiovascula r Services Start: 05-28-2021 End: 05-28-[address] Mallory Mcpherson Work Phone: [facility]-Ultrasound, [facility] Start: 05-07-2021 End: 05-07-[address] Mallory Mcpherson Work Phone: [facility]-Massage Therapy, [facility] Start: 05-07-2021 End: 05-07-[address] Mallory Mcpherson Work Phone: [facility] Start: 05-06-2021 Non-patient / Non-visit Dr. Stefanie Mcpherson Work Phone: [facility] Start: 05-02-2021 End: 05-02-[address] Mallory Mcpherson Work Phone: [facility] Start: 03-24-2021 End: 03-28-2021 Outreach Lab MALLORY MCPHERSON DO [facility] Start: 03-05-[address] Mallory Mcpherson Work Phone: [facility]-Pulmonary Services/Neurology Start: 03-02-2021 End: 03-02-[address] Mallory Mcpherson Work Phone: [facility] Procedures Date Procedure Procedure Detail Performing [...] is considered significant. Performed By: #### L [id number], [id number] #### [facility] (DEFAULT) [address] [place] [address] Start: 07-22-2021 Radiologic exam ches t single [...] Start: 07-17-2021 Creatinine blood Julio Cesar Law POLISHING MACHINE OPERATOR HELPER-ASSISTANT MAINTENANCE MANAGER Work Phone: Start: 07-16-2021 Mri brain brain stem w/o contrast material Jaxon Dahl MD Work Phone: Start: 07-16-2021 Blood count platelet automated Julio Cesar Law POLISHING MACHINE OPERATOR HELPER-ASSISTANT MAINTENANCE MANAGER Work Phone: Start: 07-15-2021 CARDIAC RHYTHM Other [...] Ignacio Quan MD Start: 04-30-2016 End: 04-30-2016 MM Ignacio Quan MD Start: 08-21-2015 End: 08-21-2015 Dietary management education, guidance, and counseling Lulu Rocha RN Start: 08-21-2015 End: 08-21-2015 Follow Up Appt 6 months Lulu adams PA-C Work Phone: Start: 08-21-2015 End: 08-21-2015 [facility] Lulu Moreno PA-C Work Phone: [...] Start: 07-13-2026 Fasting lipid profile LIPID SCREENING [facility] Start: 07-13-2026 LIPID SCREEN LIPID SCREEN [facility] Start: 05-01-2024 Development of care plan [facility] Start: 05-01-2024 Patient discharge [facility] Start: 04-27-2024 Speech therapy management [facility] Start: 04-24-2024 Developing a treatment plan [facility] Start: 04-24-2024 Development of care plan [facility] Start: 04-10-2024 [facility] Start: 04-10-2024 Consultation [facility] Start: 04-08-2024 Consultation [facility] Start: 04-08-2024 Consultation [facility] Start: 04-07-2024 Inhalation therapy procedure [facility] Start: 03-29-2024 Patient referral to dietitian [facility] Start: 03-28-2024 Speech therapy management [facility] Start: 03-28-2024 [facility] Start: 03-28-2024 Development of care plan [facility] Start: 03-28-2024 Developing a treatment plan [facility] Start: 03-27-2024 Following clinical pathway protocol [facility] Start: 03-27-2024 Speech therapy assessment [facility] Start: 03-27-2024 Following clinical pathway protocol [facility] Start: 03-27-2024 Contact precautions [facility] Start: 03-27-2024 Admission procedure [facility] Start: 03-27-2024 Measuring intake and output [facility] Start: 03-27-2024 Patient referral to dietitian [facility] Start: 03-27-2024 Referral to occupational therapist [facility] Start: 03-27-2024 Referral to service [facility] Start: 03-27-2024 Vital signs measurements [facility] Start: 03-27-2024 End: 03-27-2024 [facility] Start: 10-15-2022 Simple repair f/e/e/n/l/m 2.5cm/< RPR F/E/E/N/L/M 2.5 CM/< [facility] Start: 08-28-2022 Patient discharge [facility] Start: 08-28-2022 Referral to service [facility] Start: 08-26-2022 Referral to occupational therapist [facility] Start: 08-26-2022 Referral to [facility] Start: 08-25-2022 End: 08-26-2022 [facility] Start: 08-25-2022 Ambulation without limitation [facility] Start: 08-25-2022 Assessment of risk of venous thromboembolism [facility] Start: 08-25-2022 Insertion of catheter into peripheral vein [facility] Start: 08-25-2022 Providing care according to standard [facility] Start: 08-25-2022 Following clinical pathway protocol [facility] Start: 08-25-2022 Admission procedure [facility] Start: 08-25-2022 End: 08-25-2022 Blood culture [facility] Start: 12-04-2021 Patient referral [facility] Work Phone: Start: 11-13-[address] [facility] Start: 10-06-2021 Blood chemistry [facility] Work Phone: Start: 09-29-2021 Blood chemistry [facility] Work Phone: Start: 09-22-2021 Blood chemistry [facility] Work Phone: Start: 09-19-2021 Development of care plan [facility] Work Phone: Start: 09-19-2021 Patient discharge [facility] Work Phone: Start: 09-15-2021 Speech therapy management [facility] Work Phone: Start: 09-15-2021 Blood chemistry [facility] Work Phone: Start: 09-12-2021 Development of care plan [facility] Work Phone: Start: 09-11-2021 Developing a treatment plan [facility] Work Phone: Start: 09-11-2021 [facility] Work Phone: Start: 09-10-2021 Verification routine [facility] Work Phone: Start: 09-10-2021 [facility] Work Phone: Start: 09-08-2021 [facility] Work Phone: Start: 09-08-2021 Following clinical pathway protocol [facility] Work Phone: Start: 09-08-2021 Consultation [facility] Work Phone: Start: 09-08-2021 Blood chemistry [facility] Work Phone: Start: 09-07-2021 [facility] Work Phone: Start: 09-07-2021 End: 09-07-2021 Blood culture [facility] Work Phone: Start: 09-07-2021 Patient discharge [facility] Work Phone: Start: 09-06-2021 [facility] Work Phone: Start: 08-19-2021 Patient referral to dietitian [facility] Work Phone: Start: 08-18-2021 Development of care plan [facility] Work Phone: Start: 08-18-2021 Speech therapy management [facility] Work Phone: Start: 08-18-2021 Developing a treatment plan [facility] Work Phone: Start: 08-17-2021 Introduction of urinary catheter [facility] Work Phone: Start: 08-17-2021 Following clinical pathway protocol [facility] Work Phone: Start: 08-17-2021 Verification routine [facility] Work Phone: Start: 08-17-2021 Speech therapy assessment [facility] Work Phone: Start: 08-17-2021 Admission procedure [facility] Work Phone: Start: 08-17-2021 Measuring intake and output [facility] Work Phone: Start: 08-17-2021 Patient referral to dietitian [facility] Work Phone: Start: 08-17-2021 Referral to occupational therapist [facility] Work Phone: Start: 08-17-2021 Referral to service [facility] Work Phone: Start: 08-17-2021 Vital signs measurements [facility] Work Phone: Start: 08-17-2021 End: 08-17-2021 [facility] Work Phone: Start: 08-17-2021 Patient discharge [facility] Work Phone: Start: 08-17-2021 Removal of urinary catheter [facility] Work Phone: Start: 08-07-2021 End: 08-07-2021 Patient encounter procedure 08/07/2021 Office Visit Neurology Sarah Aleman, POLISHING MACHINE OPERATOR HELPER-ASSISTANT MAINTENANCE MANAGER [address] [facility] [address] [place] [id number] Neurology [facility] Start: 08-06-2021 Measuring intake and output [facility] Work Phone: Start: 08-04-2021 Following clinical pathway protocol [facility] Work Phone: Start: 08-04-2021 [facility] Work Phone: Start: 08-04-2021 Catheterization of vein [facility] Work Phone: Start: 08-03-2021 [facility] Work Phone: Start: 08-01-2021 [facility] Work Phone: Start: 07-28-2021 End: 07-28-2021 Patient encounter procedure 07/28/2021 Office Visit Neurologic Surgery Bill Serrato MD [address] [place] [address] [facility] Start: 07-25-2021 [facility] Work Phone: Start: 07-25-2021 Referral to service [facility] Work Phone: Start: 07-25-2021 Urinary bladder training [facility] Work Phone: Start: 07-25-2021 Admission procedure [facility] Work Phone: Start: 07-25-2021 Referral to occupational therapist [facility] Work Phone: Start: 07-25-2021 Referral to service [facility] Work Phone: Start: 07-25-2021 Vital signs measurements [facility] Work Phone: Start: 07-25-2021 [facility] Work Phone: Start: 07-25-2021 Application of antithromboembolic stockings [facility] Work Phone: Start: 07-25-2021 Incentive spirometry [facility] Work Phone: Start: 07-25-2021 Patient referral to dietitian [facility] Work Phone: Start: 07-25-2021 Speech therapy assessment [facility] Work Phone: Start: 07-22-2021 Cardiac monitoring [facility] Work Phone: Start: 07-22-2021 Catheterization of vein [facility] Work Phone: Start: 07-22-2021 Continuous pulse oximetry [facility] Work Phone: Start: 07-22-2021 Elevation of head of bed [facility] Work Phone: Start: 07-22-2021 Implementation of planned interventions [facility] Work Phone: Start: 07-22-2021 Notification of physician [facility] Work Phone: Start: 07-22-2021 Oxygen therapy [facility] Work Phone: Start: 07-22-2021 [facility] Work Phone: Start: 07-22-2021 End: 07-22-2021 Patient discharge [facility] Work Phone: Start: 07-22-2021 CT angiography of head and neck CTA Head AND Neck W/ Contrast [facility] Work Phone: Start: 07-22-2021 Patient discharge [facility] Work Phone: Start: 07-21-2021 Introduction of urinary catheter [facility] Work Phone: Start: 07-20-2021 [facility] Work Phone: Start: 07-20-2021 [facility] Work Phone: Start: 07-18-2021 End: 07-19-2021 [facility] Work Phone: Start: 07-18-2021 Referral to occupational therapist [facility] Work Phone: Start: 07-18-2021 Referral to service [facility] Work Phone: Start: 07-18-2021 Speech therapy assessment [facility] Work Phone: Start: 07-18-2021 Application of intermittent pneumatic compression device [facility] Work Phone: Start: 07-18-2021 Urinary bladder training [facility] Work Phone: Start: 07-18-2021 Admission procedure [facility] Work Phone: Start: 07-18-2021 Patient referral to dietitian [facility] Work Phone: Start: 07-18-2021 Vital signs measurements [facility] Work Phone: Start: 07-18-2021 Application of antithromboembolic stockings [facility] Work Phone: Start: 07-18-2021 Incentive spirometry [facility] Work Phone: Start: 07-12-2021 Bleeding precautions [facility] Work Phone: Start: 07-12-2021 Consultation [facility] Work Phone: Start: 07-12-2021 Oxygen therapy [facility] Work Phone: Start: 07-12-2021 [facility] Work Phone: Start: 03-15-2021 ADVANCE DIRECTIVE DISCUSSION ADVANCE DIRECTIVE DISCUSSION [facility] Start: 03-15-2021 DEPRESSION ASSESSMENT DEPRESSION ASSESSMENT [facility] Start: 02-08-2018 DIABETES SCREEN DIABETES SCREEN [facility] Start: 05-17-2017 End: 05-17-2017 Appointment Appointment [facility] Work Phone: Start: 12-22-2016 End: 12-22-2016 Appointment [facility] Work Phone: Start: 11-12-2016 End: 11-12-2016 Appointment Appointment [facility] Work Phone: Start: 11-12-2016 End: 11-12-2016 Follow Up Appt 6 months Follow Up Appt 6 months [facility] Work Phone: Start: 11-12-2016 End: 11-12-2016 MMM MMM [facility] Work Phone: Start: 04-30-2016 End: 04-30-2016 Follow Up Appt 6 months Follow Up Appt 6 months [facility] Work Phone: Start: 04-30-2016 End: 04-30-2016 MMM MMM [email or web address] Work Phone: Start: 03-20-2016 End: 03-20-2016 Urine culture, bacteria *C&S, Routine Bacteria [email or web address] Work Phone: Start: 02-28-2016 Colonoscopy COLORECTAL CANCER SCREENING DISCUSSION [facility] Start: 08-21-2015 End: 08-21-2015 Follow Up Appt 6 months Follow Up Appt 6 months [facility] Work Phone: Start: 08-21-2015 End: 08-21-2015 PFM PFM [email or web address] Work Phone: Start: 05-31-2015 End: 07-29-2015 Follow Up Appt 3 months Follow Up Appt 3 months [facility] Work Phone: Start: 05-31-2015 End: 07-29-2015 Pacer Clinic Pacer Clinic [email or web address] Work Phone: Start: 05-15-2015 End: 05-15-2015 Follow Up Appt 3 months Follow Up Appt 3 months [facility] Work Phone: Start: 05-15-2015 End: 05-15-2015 MMM MMM [email or web address] Work Phone: Start: 05-15-2015 End: 07-29-2015 Pacemaker Primary Insertion Pacemaker Primary Insertion [facility] Work Phone: Start: 01-02-2015 End: 01-02-2015 Follow Up Appt 6 months Follow Up Appt 6 months [facility] Work Phone: Start: 01-02-2015 End: 01-02-2015 PFM PFM [facility] Work Phone: Start: 09-26-2014 End: 09-26-2014 Follow Up Appt 3 months Follow Up Appt 3 months [facility] Work Phone: Start: 09-26-2014 End: 09-26-2014 MMM MMM [facility] Work Phone: Start: 08-13-2014 End: 08-15-2014 Electrocardiogram, complete EKG (In office) [facility] Work Phone: Start: 07-30-2014 End: 07-29-2015 *BMP *BMP [facility] Work Phone: Start: 07-12-2014 End: 07-16-2014 *BMP *BMP [facility] Work Phone: Start: 07-12-2014 End: 07-29-2015 24 hour holter monitor 24 hour holter monitor [facility] Work Phone: Start: 07-12-2014 End: 07-20-2014 Echocardiography Echocardiogram (complete) [facility] Work Phone: Start: 07-12-2014 End: 07-27-2014 Electrocardiogram, complete EKG (In office) [facility] Work Phone: Start: 07-12-2014 End: 07-12-2014 Follow Up Appt 3 months Follow Up Appt 3 months [facility] Work Phone: Start: 07-12-2014 End: 07-20-2014 Nuclear stress test -exercise Nuclear stress test -exercise [facility] Work Phone: Start: 07-12-2014 End: 07-12-2014 PFM PFM [facility] Work Phone: Start: 06-14-2011 Pneumococcal vaccination PNEUMOCOCCAL VACCINE SERIES (1 - PCV) [facility] Start: 06-14-2011 PNEUMOCOCCAL: 65+ (1 - PCV) PNEUMOCOCCAL: 65+ (1 - PCV) [facility] Start: 1996 Prostate specific antigen measurement PROSTATE CANCER SCREENING DISCUSSION [facility] Start: 1996 SHINGRIX VACCINE (1 of 2) SHINGRIX VACCINE (1 of 2) [facility] Start: 1996 Zoster vaccine hzv live for subcutaneous use ZOSTER (SHINGLES) VACCINE (1 of 2) [facility] Start: 06-14-1991 COLOGUARD (FIT-DNA) COLOGUARD (FIT-DNA) [facility] Start: 06-14-1991 Colonoscopy COLONOSCOPY [facility] Start: 06-14-1991 COLORECTAL CANCER SCREENING COLORECTAL CANCER SCREENING [facility] Start: 06-14-[address] COLONOGRAPHY [facility] Start: 06-14-1991 FECAL OCCULT BLOOD FECAL OCCULT BLOOD [facility] Start: 06-14-1991 SIGMOIDOSCOPY SIGMOIDOSCOPY [facility] Start: 1965 Third diphtheria, tetanus and acellular pertussis (DTaP) vaccination TDAP (ADULT) [facility] Start: 1965 Urine microalbumin profile DTAP,TDAP,TD (1 - Tdap) [facility] Start: 1964 HEPATITIS C SCREENING HEPATITIS C SCREENING [facility] Start: [address] [facility] Start: 06-14-1951 COVID-19 VACCINE (#1) COVID-19 VACCINE (#1) [facility] Start: 1946 COVID-19 VACCINE (#1) COVID-19 VACCINE (#1) [facility] Start: 1946 Hepatitis C antibody, confirmatory test HEPATITIS C VIRUS SCREENING [facility] Bacteria identified in Blood by Culture Blood Culture [facility] Work Phone: Bacteria identified in Blood by Culture Blood Culture [facility] Bacteria identified in Urine by Culture URINE CULTURE Microbiology STAT 07/22/2021 3:[address] [facility] Bacteria identified in Urine by Culture Urine Culture [facility] Work Phone: Blood chemistry [facility] Work Phone: Blood culture [facility] Work Phone: Brain natriuretic pe ptide measurement [facility] Work Phone: End: 07-15-2021 FLUORO IMAGING FOR NEURO ENDOVASCULAR [facility] Work Phone: Comment on above: One Time for 1 Occurrences starting 05/2021 until 07/15/2021 End: 07-13-2021 Interrogation of cardiac pacemaker PACEMAKER/ICD INTERROGATION Cardiac Services Routine One Time for 1 Occurrences starting 07/13/2021 until 07/13/2021 [facility] Work Phone: Comment on above: One Time for 1 Occurrences starting 03/2021 until 07/13/2021 End: 07-23-2021 Interrogation of cardiac pacemaker PACEMAKER/ICD INTERROGATION Cardiac Services Routine One Time for 1 Occurrences starting 07/23/2021 until 07/23/2021 [facility] Comment on above: One Time for 1 Occurrences starting 07/13 until 07/23/2021 Patient Education [facility] Work Phone: Patient referral [facility] Work Phone: POCT GLUCOSE, FINGER STICK POCT GLUCOSE, FINGER STICK Point of Care Testing STAT 07/23/2021 4:[address] [facility] End: 07-12-[address] [facility] Comment on above: One Time for 1 Occurrences starting 06/15 until 07/12/2021 End: 07-22-[address] [facility] Comment on above: One Time for 1 Occurrences starting 07/13 until 07/22/2021 Immunizations Immunization Date Immunization Notes Care Provider Juan arizmendi 06-11-2006 hepatitis A vaccine, pediatric/adolescent dosage, [address] Mallory Mcpherson Work Phone: [facility] Payers Date Payer Category Payer Self-pay [id number] 2012 Unknown [id number] 2012 Unknown [facility] [id number] 2012 Unknown [id number] 2011 Medicare [id number] 2011 Medicare [id number] 1945 Unknown [id number] 2.16. 840.1.951466.3.579.2.594 1946 Unknown [id number] 2.16. 840.1.873645.3.579.2.594 1946 Unknown [id number] 2.16. 840.1.594010.3.579.2.594 1946 Unknown [id number] 2.16.8 40.1.023679.3.579.2.627 1946 Unknown [id number] 2.16.8 40.1.924337.3.579.2.627 1946 Unknown [id number] 2.16.8 40.1.740435.3.579.2.627 1946 Unknown [id number] 2.16.8 40.1.587244.3.579.2.627 1946 Unknown [id number] 2.16.8 40.1.755301.3.579.2.627 1946 Unknown [id number] 2.16.8 40.1.124384.3.579.2.627 Unknown [id number] 2.16.8 40.1.793883.3.579.2.462 Unknown [id number] 2.16.8 40.1.127853.3.579.2.462 Unknown [id number] 2.16.8 40.1.172140.3.579.2.462 Unknown [id number] 2.16.8 40.1.582584.3.579.2.462 Unknown [id number] 2.16.8 40.1.101512.3.579.2.462 Unknown [id number] 2.16.8 40.1.313294.3.579.2.462 Unknown [id number] 2.16.8 40.1.968748.3.579.2.462 Unknown [id number] 2.16.8 40.1.933481.3.579.2.462 Unknown [id number] 2.16.8 40.1.822050.3.579.2.462 Unknown [id number] 2.16.8 40.1.224637.3.579.2.462 Unknown [id number] 2.16.8 40.1.930863.3.579.2.462 Unknown [id number] 2.16.8 40.1.211068.3.579.2.462 Unknown [id number] 2.16.8 40.1.231504.3.579.2.462 Unknown [id number] 2.16.8 40.1.524721.3.579.2.462 Unknown [id number] 2.16.8 40.1.544537.3.579.2.462 Unknown [id number] 2.16.8 40.1.123128.3.579.2.462 Unknown [id number] 2.16.8 40.1.105670.3.579.2.462 Unknown [id number] 2.16.8 40.1.502150.3.579.2.462 Unknown [id number] 2.16.8 40.1.981401.3.579.2.462 Unknown [id number] 2.16.8 40.1.979932.3.579.2.462 Unknown [id number] 2.16.8 40.1.342344.3.579.2.462 Unknown [id number] 2.16.8 40.1.828955.3.579.2.462 Unknown [id number] 2.16.8 40.1.654168.3.579.2.462 Unknown [id number] 2.16.8 40.1.007264.3.579.2.462 Unknown [id number] 2.16.8 40.1.284164.3.579.2.462 Unknown [id number] 2.16.8 40.1.872674.3.579.2.462 Unknown [id number] 2.16.8 40.1.305073.3.579.2.462 Unknown [id number] 2.16.8 40.1.236666.3.579.2.462 Unknown [id number] 2.16.8 40.1.048154.3.579.2.462 Unknown [id number] 2.16.8 40.1.491308.3.579.2.462 Unknown [id number] 2.16.8 40.1.639888.3.579.2.462 Unknown [id number] 2.16.8 40.1.493054.3.579.2.462 Unknown [id number] 2.16.8 40.1.217520.3.579.2.462 Unknown [id number] 2.16.8 40.1.039896.3.579.2.462 Unknown [id number] 2.16.8 40.1.816031.3.579.2.462 Unknown [id number] 2.16.8 40.1.237805.3.579.2.462 Unknown [id number] 2.16.8 40.1.742777.3.579.2.462 Unknown [id number] 2.16.8 40.1.809228.3.579.2.462 Unknown [id number] 2.16.8 40.1.865985.3.579.2.462 Unknown [id number] 2.16.8 40.1.926002.3.579.2.462 Unknown [id number] 2.16.8 40.1.649983.3.579.2.462 Social History Date Type Detail Facility Start: 02-28-2019 End: 09-13-2024 Never smoked tobacco (finding) [facility] Comment on above: no smoke exposure Start: 1945 Sex Assigned At Male [facility] Start: 09-25-2020 End: 05-18-2023 Tobacco smoking status NHIS Unknown if ever smoked [facility] Start: 03-29-2019 None [facility] Start: 03-29-2019 With Family [facility] Start: 03-06-2016 Non-smoker [facility] Start: 07-16-2021 Alcohol intake Current non-dr compliance associate of alcohol (finding) [facility] Start: 07-16-2021 Alcohol intake [facility] Start: 1945 Sex Assigned At Not on file [facility] Start: 07-12-2021 End: 07-22-2021 Exposure to SARS-CoV-2 (event) Not sure [facility] Medical Equipment Procedure Code Equipment Code Equipment Origin al Text Equipment Identifier Dates Lead Pace Standa rd Biotronik 3 - [id number] Start: 02-18-2015 Cardiac pacemaker, device (physical object) ([id number]) [id number] Start: 02-18-2015 BIOTRONIK ENTOVI S BA FDA Start: 02-18-2015 BIOTRONIK ENTOVI S BA FDA Start: 02-18-2015 BIOTRONIK ENTOVI S BA FDA Start: 02-18-2015 BIOTRONIK ENTOVI S AB FDA Start: 02-18-2015 BIOTRONIK ENTOVI S BA [...] Assessment Result Facility 05-01-[address] [facility] Work Phone: 04-30-2024 Functional status Wheelchair;Lift Assist [facility] Work Phone: 08-28-2022 Functional status Ambulates [facility] Work Phone: 09-19-2021 Functional status Ambulates [facility] Work Phone: 09-11-2021 Functional status Chair [facility] Work Phone: 09-10-2021 Functional status Chair [facility] Work Phone: 09-07-2021 Functional status Ambulates [facility] Work Phone: 08-17-2021 Functional status Chair [facility] Work Phone: 07-22-2021 Functional status Chair [facility] Work Phone: Mental Status Date Assessment Result Facility 05-01-2024 Cognitive function Voice/Name [facility] Work Phone: 04-30-2024 Cognitive function Appropriate;[facility] Work Phone: 08-28-2022 Cognitive function Voice/Name [facility] Work Phone: 09-19-2021 Cognitive function Voice/Name [facility] Work Phone: 09-15-2021 Cognitive function Appropriate;Cooperativ [facility] Work Phone: 09-10-2021 Cognitive function Voice/Name [facility] Work Phone: 09-08-2021 [facility]: 09-07-2021 Cognitive function Level Of Cons ciousness Awake;Alert [facility] Work Phone: 09-06-2021 Cognitive function Voice/Name [facility] Work Phone: 09-05-2021 Cognitive function Appropriate;Cooperativ e [facility] Work Phone: 08-17-2021 Cognitive function Voice/Name [facility] Work Phone: 07-22-[address] [facility] Work Phone: 07-21-2021 Cognitive function Voice/Name [facility] Work Phone: 07-12-2021 Cognitive function Voice/Name [facility] Work Phone: Clinical Notes 07-12-2021 to 08-16-2024 Note Date & Type Note Facility 08-16-2024 Procedure note [facility] 08-08-2024 Evaluation note Diagnosis Onset Date [...] sinus syndrome chronic August 16, 2024 2:59pm [facility] Work Phone: [phone] [facility]01-13-2025 [facility]01-13-2025 Evaluation note* Diagnosis Onset Date Resolution Status [...] 08, 2024 2 :22pm Essential hypertension deleted Id 2024 2:22pm [facility] Work Phone: 1(340) 291-220501-13-2025 Evaluation note* Diagnosis Onset Date Resolution Status [...] sinus syndrome chronic August 16, 2024 2:59pm [facility] Work Phone: 1(946) 627-893001-13-2025 [facility]01-09-2025 [facility]12-16-2024 [facility] 02-28-2024 [facility]12-05-2024 [facility]11-28-2024 Note. MICRO - Microbiology PROCEDURE: Urine Culture [*1] SOURCE: Urine, Clean Catch BODY SITE: COLLECTED DATE/TIME: 02/09/2024 15:12 EST RECEIVED DATE/TIME: 02/09/2024 18:45 EST START DATE/TIME: 02/09/2024 18:46 EST FREE TEXT SOURCE: FINAL REPORTS Final Report [] Verified Date/Time/Personnel: 02/10/2024 14:30 EST >100,000 cfu/ml Multiple bacterial morphotypes present. Probable Contamination. Suggest recollection if clinically indicated. Performing Locations *1: This test was performed at: [address], [facility] , [facility]09-15-2024 Note. MICRO - Microbiology PROCEDURE: Culture [...] Locations *1: This test was performed at: [facility], [address] [place] [address], [address] , [facility]09-15-2024 Note. MICRO - Microbiology PROCEDURE: Urine [...] Locations *1: This test was performed at: [address], [address]- , [facility]07-18-2024 Note. MICRO - Microbiology PROCEDURE: Urine [...] Locations *1: This test was performed at: [address], [address] , [facility] ([place])09-08-2023 Note ORIGINAL EXAMINATION: XRAY VIEWS OF THE [...] Sign Date: 09/08/2023 12:00:24 PM Ordering Provider: [facility]04-28-2024 Note. MICRO - Microbiology PROCEDURE: Urine [...] Locations *1: This test was performed at: [address], [facility] , [facility] ([place])03-28-2023 Note. MICRO - Microbiology PROCEDURE: Urine Culture [...] Locations *1: This test was performed at: [facility], [facility] [address] [place] [address], [address]- , [facility])08-28-[address] Cantu [facility] August 28, 2022 12:37pm Note Date/Time August 28, 2022 11:4 3am [facility] Medical Records Department [address] [place] [address] Discharge Summary 08/28/22 1141 MR#: [id number] Acct: [id number] Name: IGNACIO AQUINO Rep #:[id number] : 1945 77 From: Marc Cantu MD PCP: Dr. Mallory Mcpherson, Status:ADM IN Location: [facility] QN298-5 Providers Date of Admission: 08/25/22 Date of [...] sent results pending WBC count remains elevated -11591Mvnzgqqp so far positive for nonsignificant growth of [...] 85.6 H, Lymph % (Auto) 5.2 L, Posey % (Auto) 7.7, Eos % (Auto) 0.8, [...] 15:06 EDT Reading Location ID and State: [facility] / [place] , Service support , D/C Instructions Discharge [...] Health Service Charges/Coding Visit Charges Inpatient E&M: 68067 Disch Hosp >30min 08/28/22 1237 <Electronically signed by Marc Cantu MD> Cosigner Signature (if applicable): CC: Dr. Marc Cantu MD; Dr. Mallory Mcpherson DO~ Signed [facility] Work Phone: 1(759) 205-188006-16-[address] Cantu [facility] August 28, 2022 11:38am Note Date/Time August 28, 2022 7:37 am [facility] Medical Records Department [address] [place] [address] Progress Note - Hospitalist 08/28/22 0736 MR#: [id number] Acct: [id number] Name: IGNACIO AQUINO Rep #:[id number] : 1945 77 From: Marc Cantu MD PCP: Dr. Mallory Mcpherson, DO Status:ADM IN Location: [place] [address]1 Reason for Visit Reason for Visit: Diagnoses [...] 85.6 H, Lymph % (Auto) 5.2 L, Posey % (Auto) 7.7, Eos % (Auto) 0.8, [...] sent results pending WBC count remains elevated -48912Dcwijvws so far positive for nonsignificant growth of [...] documentation, 35Minutes Charges/Coding Visit Charges Inpatient E&M: 58409 Subs Hosp L2 08/28/22 1138 <Electronically signed by Marc Cantu MD> Cosigner Signature (if applicable): CC: ~ Signed [facility] Work Phone: 1(226) 743-958406-15-[address] Cantu [facility] August 27, 2022 8:13am Note Date/Time August 27, 2022 8:13 am [facility] Medical Records Department [address] [place] [address] Progress Note - Hospitalist 08/27/22 0811 MR#: [id number] Acct: [id number] Name: IGNACIO AQUINO Rep #:[id number] : 1945 77 From: Marc Cantu MD PCP: Dr. Mallory Mcpherson, DO Status:ADM IN Location: [place] [address] Reason for Visit Reason for Visit: Diagnoses [...] RDW Coeff of Donna 15.0 H, Plt [id number], MPV 10.2, Immature Gran % (Auto) 0.800, Neut % (Auto) 87.5 H, Lymph % (Auto) 5.3 L, Posey % (Auto) 6.1, Eos % (Auto) 0.1, [...] sent results pending WBC count remains elevated -68682Vjhapehj so far positive for nonsignificant growth of [...] documentation, 35Minutes Charges/Coding Visit Charges Inpatient E&M: 05657 Subs Hosp L2 08/27/22 0813 <Electronically signed by Marc Cantu MD> Cosigner Signature (if applicable): CC: ~ Signed [facility] Work Phone: 1(571) 216-745206-14-[address] Cantu [facility] August 26, 2022 8:46am Note Date/Time August 26, 2022 7:30 am [facility] Medical Records Department [address] [place] [address] Progress Note - Hospitalist 08/26/22728 MR#: [id number] Acct: [id number] Name: IGNACIO AQUINO Rep #:[id number] : 1945 77 From: Marc Cantu MD PCP: Dr. Mallory Mcpherson, DO Status:ADM IN Location: [place] [address]1 Reason for Visit Reason for Visit: Diagnoses [...] 86.3 H, Lymph % (Auto) 5.4 L, Posey % (Auto) 7.3, Eos % (Auto) 0.3, [...] Clarity Cloudy, Urine pH 6.0, Ur Specific Sunol 1.020, Urine Protein 30 H, Urine Glucose [...] 83.3 H, Lymph % (Auto) 7.4 L, Posey % (Auto) 8.0, Eos % (Auto) 0.4, [...] documentation, 50Minutes Charges/Coding Visit Charges Inpatient E&M: 11051 Subs Hosp L3 08/26/22 0846 <Electronically signed by Marc Cantu MD> Cosigner Signature (if applicable): CC: ~ Signed [facility] Work Phone: 1(405) 370-149706-13-[address] Zavala [facility] August 25, 2022 3:18pm Note Date/Time August 25, 2022 9:32 am [facility] Medical Records Department [address] [place] [address] Emergency Department Summary 08/25/22 MR#: [id number] Acct: [id number] Name: IGNACIO AQUINO Rep #:[id number] : 1945 77 From: Juaquin Zavala MD PCP: Dr. Mallory Mcpherson, DO Status:ADM [facility] History of Present Illness Chief Complaint: [...] states that his abdomen has been bloated. [facility] Medical History (Updated 08/25/22 @ 14:28 by [...] 86.3 H Lymph % (Auto) 5.4 L Posey % (Auto) 7.3 Eos % (Auto) 0.3 [...] Clarity Cloudy Urine pH 6.0 Ur Specific Sunol 1.020 Urine Protein 30 H Urine Glucose [...] (Auto) Neut % (Auto) Lymph % (Auto) Posey % (Auto) Eos % (Auto) Baso % [...] Color Urine Clarity Urine pH Ur Specific Sunol Urine Protein Urine Glucose (UA) Urine Ketones [...] infection), Pancreatitis, Nausea & vomiting Disposition Disposition: [facility] What to do if you have Problems For any increased pain, shortness of breath, bleeding, nausea or vomiting, chestpain, or any unexpected problems, contact your Primary Care Provider. Call [facility] ([phone]) or report to the closest Emergency Room. Call 911 if necessary. 08/25/22 1518 <Electronically signed by Juaquin Zavala MD> Cosigner Signature (if applicable): CC: Dr. Mallory Mcpherson, DO ~ Signed [facility] Work Phone: 1(491) 211-615106-13-2023 History and physical note Author Dr. Cantu [facility] August 25, 2022 12:23pm Note Date/Time August 25, 2022 12:2 3pm [facility] Medical Records Department [address] [place] [address] H&P Exam - Hospitalist 08/25/22 1217 MR#: [id number] Acct: [id number] Name: IGNACIO AQUINO Rep #:[id number] : 1945 77 From: Marc Cantu MD [...] to regular nursing floor for further management [facility] Medical History AAA (abdominal aortic aneurysm) [...] 86.3 H, Lymph % (Auto) 5.4 L, Posey % (Auto) 7.3, Eos % (Auto) 0.3, [...] Clarity Cloudy, Urine pH 6.0, Ur Specific Sunol 1.020, Urine Protein 30 H, Urine Glucose [...] 18 minutes. Charges/Coding Visit Charges Inpatient E&M: 63136 Init Hosp L3 Procedures Hospitalists Procedures: 32543 Advncd Care Plan 30 Min 08/25/22 1223 <Electronically signed by Marc Cantu MD> Cosigner Signature (if applicable): CC: Dr. Marc Cantu MD; Dr. Mallory Mcpherson DO~ Signed [facility] Work Phone: 1(711) 722-638712-15-2022 NoteHNO ID: [id number] Author: Yumiko Marcum, OT/L Service: ? 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 Violation [...] Driving: Right UE: Sufficient Left UE: Sufficient Oil Well Service Unit Operator: Sufficient Right LE: Insufficient Left LE: Marginal [...] BASED ON SCREENING WHICH IS CONSISTENT WITH [facility] FOR VISUAL [facility], HE CURRENTLY IS [...] impairment 20-28; Severe impairment [email or web address] Visual Scanning/Attention: [place] Making Part A (sec): 85 sec 50th [...] foreign markings) the numbers inside the clock galena the numbers equally, or nearly so, from each other the numbers equally spaced, or nearly so, from the edge of the galena one clock hand at the two o'clock [...] / PERCEPTUAL FUNCTION: Marginal for Driving Hung Account Manager Forest Service Simulator: Simple Brake Reaction Time: Average Distance: [...] Response to Education/Teach Back: States/Identifies TREATMENT: Evaluation Self-Intermediate Management: 1: refer to documentation for details [...] this report indicates the 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 RECOMMENDATIONS: ADL/IADL Recommendations: ongoing moderate to maximal assist needed as has been the case for the past 7 years Driving Recommendations: REFRAIN FROM DRIVING NOT MEETING [facility] MINIMAL VISUAL FIELD REQUIREMENTS IN ADDITION TO NOT HAVING ADEQUATE PHYSICAL SKILLS FOR RETURN Guallpa's Visual Field Exam Requested: Yes when next formal eye exam Recommended Complete Eye Exam: as indicated by contact center professional Planned Interventions, Frequency, and Duration: Current Frequency: 1 visit Duration: 1 visit Total Number of Visits Planned: 0 Patient demonstrates good understanding of results but was very disappointed with same. The above resultswere discussed and agreed upon by patient/family. Billing: Total Treatment Time Minutes (timed/untimed) 105 minutes Evaluation - Moderate Complexity (82523) Self Care / Home Management (40677): 1:1 time: 45 minutes (3 units: 38-52 mins) Total time: 105 minutes ADRY Blue, CDRS, CDI Certified Account Manager Forest Service C Python Developer [facility] Discharge summary Author Lulu Chappell [facility] November 27, 2021 2:58pm Note Date/Time November 27, 2021 2:58pm [facility] Occupational Therapy [facility] [address] [place] [address]. [address] [place] [address] / REHABILITATION SERVICES DISCHARGE SUMMARY MR#: [id number] Acct: [id number] Name: IGNACIO AQUINO Rep #: [id number] : 1945 76 From: Lulu Chappell OTR/L, [...] pinch L- 19#. Lateral pinch R- 16#. electronic equipment maint tech test: R-elbow at side- 80# increase from [...] please fell free to call me at [phone]. Thank you for the referral of this patient. Sincerely, Lulu Chappell, OTR/Say, CHT <Electronically signed by Lulu Chappell OTR/Say CHT> 11/27/21 8034 CC: Dr. Mallory Mcpherson DO; Dr. Luis Carlos Gallardo MD ~ MK Signed [facility] Work Phone: 1(596) 575-755005-13-2022 Hospital course Narrative* Vinny Varags MD - 07/25/2021 5:38 AM EDT DISCHARGE SUMMARY Name: Ignacio Aquino Age:76 y.o. Birthday: 1945 Admit Date: 07/22/2021 2:36 PM Discharge Date: 07/25/21 Discharge Unit: [facility], Service Gen Med 1 Admitting Physician: Shanika [...] during his recent hospital stay at [facility]. As you may know, Ignacio Aquino [...] XL Commonly known as: PROCARDIA XL nystatin 999894 UNIT/GM POWD powder Commonly known as: NYSTOP;MYCOSTATIN potassium chloride 20 MEQ tab ER tablet Commonly known as: K-DUR senna 8.6 MG TABS Commonly known as: SENOKOT Tamsulosin HCl 0.4 MG CAPS Commonly known as: FLOMAX take 1 capsule by mouth at bedtime. Follow Up Mallory Mcpherson DO [address] [facility] [place] [id number] Follow up Please call to schedule an appointment with your PCP within 7-10 days. Ignacio Quan MD [address] [facility] [phone] Heath Mcdowell MD [address] [place] [address] Physical Exam on the Date of [...] moving both arms against gravity. 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 Able to move ankle but unable [...] attending physician: No att. providers found p: [phone] f: [phone] PROCEDURES None IMAGING XR CHEST AP PORTABLE ED Final Result IMPRESSION: Cardiomegaly. No acute process. I personally viewed and interpreted these images and I have reviewed and approved this report. ABDOMEN/PELVIS WITHOUT CONTRAST Final Result IMPRESSION: 1. No acute findings in the abdomen or pelvis. STROKE HEAD-STROKE ALERT ONLY Final Result IMPRESSION: 1. Areas of relative hyperdensity in the left MCA and LEASING AGENT territory involving the left basal ganglia, left [...] reports please contact Medical Information Management @ [phone] RESULTS / STUDIES PENDING AT DISCHARGE: Follow [...] HOME AT DISCHARGE: Mallory Mcpherson [address] [place] / [place] [address] CONSULTS DURING ADMISSION: IP CONSULT TO PHYSICAL [...] this patient. Shanika Jose MD, FACP, FAAP Cement Finisher Helper of Clinical Medicine General Internal Medicine documented [facility] Note* Nursing Notes - Brook Montoya RN - 07/25/2021 5:33 AM EDT Report called to Blaire at [facility]. Patient discharged at this time via cart with EMS service. IV removed prior to discharge. All paperwork faxed to facility. [facility]05-13-2022 Miscellaneous Notes* Nursing Notes - Brook Montoya RN - 07/25/2021 5:33 AM EDT Report called to Blaire at [facility]. Patient discharged at this time via [...] necessary for functional mobility. Outcome: Ongoing Problem: REHABILITATION COUNSELOR - Language Goal: Establish Yes/No Description: Patient [...] wipes. Pat dry. Shake Touchless Care Zinc Berne well. Berne 4-6 inches away from skin. Leave open to air. Berne 2x day and prn with incontinence episodes. Please order product from distribution item number #[id number] Bilateral heels- Please suspend heels off bed [...] Discuss with Specialist Place a consult in [facility] for the WOCN if Candace Score is ? 12 ( high or severe risk) Discuss with INSIDE SALES AGENT or Unit Skin [place] The STAND skin bundle is an evidence-based prevention bundle designed to prevent pressure injuries in patients who are at risk for developing a pressure-related injury. For more information related to STAND Skin Bundle: [email or web address]/departments/[email or web address]/Documents/StandSkinTipSh eet.pdf See image(s) below: Candace Skin Assessment: [...] N/A; Surgeon: Colton Daly MD; [facility] CERVICAL FUSION C6/C7 Wound Documentation: 07/23/21 1609 [...] notified of assessment and plan. Please page #[phone] or reconsult with any further needs. * [...] Tadeo - 07/23/2021 2:52 PM EDT Problem: REHABILITATION COUNSELOR - Language Goal: Establish Yes/No Description: Patient [...] Daily Progress Note Patient: Ignacio Aquino, 1945, [id number] Medical Student: Merary Heredia, MS4 Assessment/Plan: Ignacio [...] Status: Full Code Disposition: Discharge back to [facility] as soon as transportation can be arranged [...] moving both arms against gravity. 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 Able to move ankle but unable [...] relative hyperdensity in the left MCA and LEASING AGENT territory involving the left basal ganglia, left [...] skin check completed by this RN with recharger Vicenta. * Certification - Christophe Stein MD - 07/22/2021 6:43 PM EDT I certify that this patient requires inpatient services at this time. I anticipate the expected length of stay will include at least two midnights. Inpatient services are due to the following medicalconcerns altered mental status in setting of recent stroke. Plans for post hospitalization care will be discharge to group home facility. Christophe Stein MD MPH Internal Medicine PGY2 [id number] documented in this encounter[facility]05-12-2022 History of Present illness Narrative* KEO Ruiz - 07/24/2021 3:21 PM EDT The following note reflects a discharge planned for Wednesday, 07/25 between 1643-5123: Social Work Final Discharge Plan and Transportation Final Discharge Planning Discharge Disposition: Inpatient Rehab Facility Services at Discharge: Speech Therapy, Nursing Home, Physical Therapy, Occupational Therapy Community Agency Name(s) For Handoff: [facility] Name For Handoff: 4th floor IPR Phone For Handoff: [phone] Fax For Handoff: [phone] Plan Plan: Discharge to [facility] Patient/Family In Agreement With Plan: yes Transportation Name of Transport Company: Other (Comment) ([facility] [phone]) ETA of Ambulance: [phone] Ambulance Arrived: No Transfer Mode: gurney Mode of Transfer: ambulance, BLS Accompanied By: EMS Patient medically stable for discharge per physician/medical team. SW confirmed with [place] that they are able to accept the patient on . Insurance pre- certification is not required. arranged transport as indicated above, ETA is [phone]. The patient has no specialized equipment needs for transportation. AVS/ANALISA completed from a SW standpoint. SW updated the bedside RN, CCM, facility and patient/solar sales representative and assessor of the discharge plan and transport time. Patient/Die Cutter Apprentice remain in agreement with the discharge plan. Bedside RN to call report and fax AVS/ANALISA. Ambulance form left at the spray unit feeder desk with a request for a printed transfer report. Discharge Instruction for Bedside RN: 1. Confirm the Ambulatory Order is in the ANALISA. 2. Print the ANALISA and AVS. 3. Print the Discharge Summary for facilities (if available). 4. Fax ANALISA, AVS and Discharge Summary (when applicable) to agency or facility. 5. Call the agency or facility for report. LIYAH Torres, WALLET ASSEMBLER Medical Social Work * Vinny Vargas MD - 07/24/2021 11:33 AM EDT Internal Medicine Daily Progress Note Patient: Ignacio Aquino, 1945, [id number] Medical Student: Merary Heredia, MS4 Assessment/Plan: Ignacio [...] Status: Full Code Disposition: Discharge back to [facility] in AM. Subjective/Interval History: NAEON. updated at [...] moving both arms against gravity. 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 Able to move ankle but unable [...] relative hyperdensity in the left MCA and LEASING AGENT territory involving the left basal ganglia, left [...] minutes with more than 50% spent on counseling/liyx-yb-xlav with the patient and/or family Shanika Jose MD, FACP, FAAP Cement Finisher Helper of Clinical Medicine General Internal Medicine * Marcy Victoria RN - 07/23/2021 5:13 PM EDT Discharge Planning Patient Assessment Admission Assessment Patient Assessment Completed: Yes Anticipated discharge disposition: Nursing Home Facility (vs IP Rehab) Reason for Admission: stroke workup Is the patient able to participate in the assessment?: No Explanation of why patient is unable to participate: AMS Information source: Spouse Information Source Name/Contact: Zach Aquino Demographics Verified and Updated: Yes Has the patient been admitted to any hospital in the last 30 days?: Transferred From Outside Hospital ([facility]) Advanced Care Planning Has the patient completed Advance Directives?: Completed, Not Available in Medical Record Copy of Advance Directives was requested?: Yes Advance Directives Requested From: spouse Legal Next of Kin Does the patient have a Guardian?: No Spouse: Yes Name and Contact information: Zach Aquino [phone] Adult Child(meme), List All Adult Children: Yes [...] Is the patient from a facility or residential?: No Patient lives with: Spouse or Partner Living Environment: House How many steps does the patient have to navigate to enter or inside the home? : ramp Does the patient have a first floor set-up with bed and bathroom?: Yes Patient Caregiving Responsibilities: Self Patient-identified caregiver/support network: Family, Friends, Protestant Who does the patient identify as a [...] consults?: Yes Select consult type: PT, OT, REHABILITATION COUNSELOR, Social Work Does the patient's home require any home modifications for discharge? : No CM to recommend therapy or other consults? : No Medication Management Does the patient have prescription insurance coverage? : No (spouse says they use any discount cards that their pharmacy offers if needed) Is the patient on Anticoagulation? : No (he was prescribed something but didn't take it) [employer] [address] [place] [address] - [address] [facility] [address] [facility] [address] Core Maker Helper Does the patient or solar sales representative and assessor express financial concerns? : No Employed?: Yes Coping/Stress Concerns about patient s coping and stress?: Unable to Assess Concerns about patient s caregiver s coping and stress?: No Values and Beliefs Cultural or holiness practices that may impact discharge planning and/or medical care?: No Initial Discharge Planning Anticipated discharge disposition: Nursing Home Facility (vs IP Rehab) Transportation Available for Discharge: Ambulance Anticipated DME: none Anticipated Services at Discharge: Physical Therapy, Occupational Therapy, Nursing Home, Speech Therapy, Outpatient follow up Patient Assessment Completed: Yes Risk of Readmission: 5.9 Category Reference: High:16-100 Mod-High:10-16 Mod-Low: 5-10 Low: 0-5 Patient is expected to dc to previous facility in [place]. [facility] [address] [phone] SW consulted and following for return. Marcy GOVEA, RN Clinical Lithographic Proofer [phone] Available on secure chat. Weekend Lithographic Proofer and Social Work Contacts [facility] Spine: CM: [phone] / SW: [phone] Endy: CM: [phone] / SW: [phone] Javi: CM: [phone] / SW [phone] Nas CALL (PCU/MICU only): CM: [phone] / SW: [phone] * Vinny Vargas MD - 07/23/2021 4:06 PM EDT Internal Medicine Daily Progress Note Patient: Ignacio Aquino, 1945, [id number] Medical Student: Merary Heredia MS4 Assessment/Plan: Ignacio [...] Status: Full Code Disposition: Discharge back to [facility] as soon as transportation can be arranged [...] moving both arms against gravity. 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 Able to move ankle but unable [...] relative hyperdensity in the left MCA and LEASING AGENT territory involving the left basal ganglia, left [...] minutes with more than 50% spent on counseling/wbzh-kx-tops with the patient and/or family Shanika Jose MD, FACP, FAAP Cement Finisher Helper of Clinical Medicine General Internal Medicine * [...] Pain: denies pain/discomfort Home Setting Residence: House, Residential Lives With: spouse First floor setup: bedroom [...] IADL History IADLs: needs assist Primary Language: American Objective/Observation: Vitals/Vitals Responses to Treatment: No signs/ [...] of Objects: mild impairment Outcome Score(s): CURRENT [facility] Daily Activity Inpatient Short Form Putting on/Taking [...] - 07/23/2021 3:03 PM EDT Acute Care REHABILITATION COUNSELOR Speech/Language/Cognitive Evaluation Discharge Recommendations: Based on the below outcome measures/assessment score(s) and REHABILITATION COUNSELOR clinicaljudgment, discharge destination recommendation is: Nursing Home Facility return Acute REHABILITATION COUNSELOR Outcomes Tracking Communicate basic wants and needs?: [...] on 07/12/21. Patient would benefit from ongoing REHABILITATION COUNSELOR services to address noted deficits. Plan to [...] name of food item he wants. Prior REHABILITATION COUNSELOR history: 07/12/21 Speech-Language Evaluation: Ignacio Aquino presents with non fluent asphasia, most consistent with Wernicke's aphasia. These deficits result in functional limitations in communicating wants and needs. Throughout evaluation, pt consistently counting and stating numbers, as well as intermittently speaking in [place] (per family at bedside, reports that he is not making sense in [place] either). Able to complete automatic speech [...] or apraxia. Pt would benefit from ongoing REHABILITATION COUNSELOR services to address noted deficits and assist pt in communicating wants and needs Prior Level of Function: Residence: House, Residential Lives With: spouse Respiratory Status: Room Air [...] VOCAL PARAMETERS: Task: Vocal Quality WDL Acute REHABILITATION COUNSELOR Goals Plan of Care by JUAN Tadeo at 07/23/2021 2:52 PM Version 1 of 1 Problem: REHABILITATION COUNSELOR - Language Goal: Establish Yes/No Description: Patient [...] Speech Therapy Discharge Summary * Afua Sagastume, REHABILITATION COUNSELOR - 07/23/2021 2:54 PM EDT Acute Care Speech-Language Pathology Clinical Swallow Evaluation Diet recommendation: Recommended Method of Nutrition: PO Recommended Diet Grade: regular Recommended Liquid Consistency: liquid- thin (IDDSI 0) Recommended Medication Administration (as appropriate per MD): Per patient preference Type of Cues/Supervision: none Assistance: independent Discharge Recommendations: Based on the below outcome measures/assessment score(s) and REHABILITATION COUNSELOR clinicaljudgment, discharge destination recommendation is: Nursing Home Facility return Current therapy frequency recommendation in acute care: Swallow Therapy Frequency: no therapy warranted Acute REHABILITATION COUNSELOR Outcomes Tracking Communicate basic wants and needs?: [...] Laterality: N/A; Surgeon: Bill Serrato MD; Location: [facility] MAIN OR PACEMAKER PLACEMENT N/A 02/18/2015 Laterality: N/A; Surgeon: Colton Daly MD; Location: [facility] CERVICAL FUSION C6/C7 Pain: General Pain Documentation [...] name of food item he wants. Prior REHABILITATION COUNSELOR history: 07/12/21 Speech-Language Evaluation: Ignacio Aquino presents with non fluent asphasia, most consistent with Wernicke's aphasia. These deficits result in functional limitations in communicating wants and needs. Throughout evaluation, pt consistently counting and stating numbers, as well as intermittently speaking in [place] (per family at bedside, reports that he is not making sense in [place] either). Able to complete automatic speech [...] or apraxia. Pt would benefit from ongoing REHABILITATION COUNSELOR services to address noted deficits and assist [...] Ice, Thin Teaspoon, Straw, Consecutive Drinks, Self-fed, REHABILITATION COUNSELOR-fed ~5 oz Dysphagia- pureed (IDDSI 4) Teaspoon, REHABILITATION COUNSELOR-fed 5x tsp Regular solid Self-fed 1 cracker [...] aspiration over the course of the session. [place] Swallow Screen: (administered by: RN) [place] Swallow Screening Screening Exclusion Criteria: none, continue with Emma Swallow Screening Cognitive Screen: Orientation: disoriented Cognitive Screen: Command Following: unable to to follow commands Oral Motor Function : oral motor dysfunction 3 oz. Water Swallow Challenge : deferred per clinical judgement [place] Swallow Screening Result: failed=NPO Voice and Swallow [...] Goal met Speech Language Pathologist: Afua Sagastume, REHABILITATION COUNSELOR, BCS-S Board Certified Specialist in Swallowing and Swallowing Disorders Available via [email or web address] Chat Time In: 1345 Time Out: 1420 [...] Barriers: Transport Current Referrals and Status 1. [facility] (reserved) Patient is reserved at [place]. [facility] advised this that they can admit patient when medically ready. SW will arrange ambulance transport. SW updated the team. Addendum 1600 SW scheduled the first available transport for Wednesday, 07/28 between [phone] via [employer]. SW updated family, team, and IPR. LIYAH Torres, WALLET ASSEMBLER Medical Social Work * Viridiana Gary PT - 07/23/2021 11:31 AM EDT Acute Physical Therapy Evaluation Prior to Admission [facility] score(s): PRIOR LEVEL AM-PAC Mobility Raw Score: 21 Current AM-PAC score(s): CURRENT AM-PAC Mobility Raw Score: 7 Based on the above AM-PAC score(s) and PT clinical judgment, patient is a good candidate for discharge to Nursing Home Facility Discharge Barriers: Patient needs assistance [...] pain/discomfort not present Home Setting Residence: House, Residential Lives With: spouse First floor setup: bedroom [...] Treatment: vital signs stable per staff nurse anesthetist and pt tolerated session well Cognition Overall [...] WFL (visible areas) Edema Edema: present Location: [facility]'s Mobility Assessment: Rolling/Turning Mobility [place] Level: Rolling/Turning: maximum assist (25% patient effort) Scooting Bridging Mobility [place] Level: Scooting/Bridging: dependent (less than 25% patient effort) Physical Assist: Scooting/Bridgin person assist Supine to Sit Mobility [place] Level: Supine->Sit: maximum assist (25% patient effort) Physical Assist: Supine->Sit: 2 person assist Bed Features/Set-up: Supine->Sit: Use of bed rail, Head of bed elevated Sit to Supine Mobility [place] Level: Sit->Supine: maximum assist (25% patient effort) Physical Assist: Sit->Supine: 2 person assist Bed Features/Set-up: Sit->Supine: Flat Balance: Sitting Balance Static Sitting-Level of Assistance: Contact guard Dynamic Sitting-Level of Assistance: Moderate assistance Transfer Assessment: Sit to Stand Transfer [place] Level: Sit->Stand: (attempted with max assist x 2 but unable to achieve more than 1/4 standing) Outcome Score(s): CURRENT [facility] Basic Mobility Inpatient Short Form Turning over in bed: 2 - A Lot of Assistance Sitting/standing from chair: 1 - Total Assistance Moving from lying on back to sittin - Total Assistance Moving to and from bed to chair: 1 - Total Assistance Walk in hospital room: 1 - Total Assistance Climbing 3-5 steps with a railin - Total Assistance CURRENT [facility] Mobility Raw Score: 7 CURRENT [facility] Mobility Functional Limitation/Modifier: 92.36% Currently Impaired in Basic Mobility- CM Assessment & Plan: Patient was admitted for [facility] of recent L MCA stroke s/p tPA [...] Physical Therapy Discharge Summary. * Mandi Muro APRN-ASSISTANT MAINTENANCE MANAGER - 07/23/2021 7:24 AM EDT Neurovascular update: [...] 11:39 AM * John Roach [facility] - 07/22/2021 8:53 PM EDT Department of Pharmacy Admission Medication Reconciliation Note Patient: Ignacio Aquino Room/Bed: E038/E038 The patient's allergies were not assessed at this time, and I have reviewed the patient's home medication list with the following sources records from [facility] (scanned into [employer]) & contacted [facility] to confirm current gabapentin dosing strategy. All changes to the home medication list have been updated in [facility]. Updated ROLLER SKATES ASSEMBLER Med List: Prior to Admission Medications Prescriptions [...] 3 mg by mouth at bedtime.. nystatin 680284 UNIT/GM Powder powder Sig: Apply 1 Application [...] Specialty Practice Pharmacist - Emergency Medicine Pager: [phone] Portable Phone: [phone] Date/Time: 07/22/2021 8:53 PM Time Spent: 20 minutes documented in this encounterSt. [facility]* Plan of Care - Catrachito Pedraza [...] necessary for functional mobility. Outcome: Ongoing Problem: REHABILITATION COUNSELOR - Language Goal: Establish Yes/No Description: Patient [...] discharge to SNF when clinically appropriate [facility]05-11-2022 Note* Nursing Notes - Ayla Guerrero [...] wipes. Pat dry. Shake Touchless Care Zinc Berne well. Berne 4-6 inches away from skin. Leave open to air. Berne 2x day and prn with incontinence episodes. Please order product from distribution item number #[id number] Bilateral heels- Please suspend heels off bed [...] Discuss with Specialist Place a consult in [facility] for the WOCN if Candace Score is ? 12 ( high or severe risk) Discuss with INSIDE SALES AGENT or Unit Skin [place] The STAND skin bundle is an evidence-based prevention bundle designed to prevent pressure injuries in patients who are at risk for developing a pressure-related injury. For more information related to STAND Skin Bundle: [email or web address] eet.pdf See image(s) below: Candace [...] N/A; Surgeon: Colton Daly MD; Location: [facility] CERVICAL FUSION C6/C7 Wound Documentation: 07/23/21 1609 [...] notified of assessment and plan. Please page #[phone] or reconsult with any further needs. [facility]05-11-2022 Note* Plan of Care - Krystyna [...] ability to safely complete ADLs. Outcome: Ongoing [facility]-11-2022 Note* Plan of Care - JUAN Tadeo - 07/23/2021 2:52 PM EDT Problem: REHABILITATION COUNSELOR - Language Goal: Establish Yes/No Description: Patient [...] and ability to direct care. Outcome: Ongoing [facility] Note* Plan of Care - Patti Lopez RN - 07/23/2021 11:46 AM EDT Problem: Patient Care Overview Goal: Plan of Care Review Outcome: Ongoing Goal: Individualization & Mutuality Outcome: Ongoing Goal: Discharge Needs Assessment Outcome: Ongoing Goal: Interdisciplinary Rounds/Family Conf Outcome: Ongoing [facility] Note* Medical Student - Merary Heredia - 07/23/2021 11:36 AM EDTSummary: Progress Note Internal Medicine Daily Progress Note Patient: Ignacio Aquino, 1945, [id number] Medical Student: Merary Heredia, MS4 Assessment/Plan: Ignacio [...] Status: Full Code Disposition: Discharge back to [facility] as soon as transportation can be arranged [...] moving both arms against gravity. 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 Able to move ankle but unable [...] relative hyperdensity in the left MCA and LEASING AGENT territory involving the left basal ganglia, left [...] 07/23/2021 for final plan. Diana Decker MD [facility]-11-2022 Note* Plan of Care - Viridiana Gary [...] ROM, necessary for functional mobility. Outcome: Ongoing [facility]-11-[facility] Note* Nursing Notes - Catrachito Pedraza RN [...] skin check completed by this RN with recharger Vicenta. [facility] Emergency department Note* Ivan Hubbard RN - 07/23/2021 5:53 AM EDT Notified Physician ref Pt's BP. Waiting for response [facility]05-11[facility] Emergency department Note* Ivan Hubbard RN - 07/23/2021 5:53 AM EDT Notified Physician ref Pt's BP. Waiting for response * Gina Jesus RN - 07/23/2021 4:06 AM EDT Bed: E043 Expected date: Expected time: Means of arrival: Comments: 38 * Nelia Hatch RN - 07/22/2021 8:23 PM EDT [phone] Bartolo Aquino Son * Kleber Scott MD [...] Scott MD PhD PGY2 Emergency Medicine [facility] [id number] Kleber Scott MD Resident 07/22/212019 * KEO Trevino - 07/22/2021 2:40 PM EDT Patient presents as level II stroke alert via [facility] from [facility]. Per transporting medics, patient's spouse and son were present at outside hospital and are expected to arrive today. Family contact info on file if needed. SW will continue to follow. KEO Trevino [phone] * Michael Roblero MD - 07/22/2021 2:39 PM EDT ED Teaching Attending Attestation AND PLAN Briefly, Ignacio Aquino is a 76 y.o. patient with history as below presenting with a change in mental status, coming in on transfer from another hospital, [facility], whereshe was convalescing after a CVA [...] N/A; Surgeon: Colton Daly MD; Location: [facility] CERVICAL FUSION C6/C7 Vitals: 07/22/21 1433 Height: [...] examined the patient. I agree with my bathhouse keeper's documented plan except for the changes in plan outlined above by me. Michael Roblero MD 07/22/2021 2:39 PM [phone] Michael Roblero MD 07/23/21 1115 * Sarai [...] N/A; Surgeon: Colton Daly MD; [facility] CERVICAL FUSION C6/C7 CURRENT MEDICATIONS Current Outpatient [...] Can by mouth 4 times daily. nystatin 064675 UNIT/GM Powder 1 Application by Topical route [...] word substitutions. Mirza Ritchie MD Resident 07/22/21 5100 documented [facility] Emergency department Note* Gina Jesus RN - 07/23/2021 4:06 AM EDT Bed: E043 Expected date: Expected time: Means of arrival: Comments: 38 [facility] Emergency department Note* Nelia Hatch RN - 07/22/2021 8:23 PM EDT [phone] [facility]05-10-[facility] Physician Emergency department Note* Kleber Scott MD [...] Scott MD PhD PGY2 Emergency Medicine [facility] [id number] Kleber Scott MD Resident 07/22/212019 [facility] Work Phone: 1(586) 771-642605-10-2022 Note* Certification - Christophe Stein MD - 07/22/2021 6:43 PM EDT I certify that this patient requires inpatient services at this time. I anticipate the expected length of stay will include at least two midnights. Inpatient services are due to the following medicalconcerns altered mental status in setting of recent stroke. Plans for post hospitalization care will be discharge to group home facility. Christophe Stein MD MPH Internal Medicine PGY2 [id number] [facility]05-10-2022 History and physical note* Christophe Stein MD - 07/22/2021 4:56 PM EDT Admission History & Physical Patient: Ignacio Aquino, 1945, [id number] Physician: Christophe Stein MD, PGY2, Pager [phone], [facility] service Date of face to face patient [...] Laterality: N/A; Surgeon: Bill Serrato MD; Location: [facility] MAIN OR PACEMAKER PLACEMENT N/A 02/18/2015 Laterality: N/A; Surgeon: Colton Daly MD; Location: [facility] CERVICAL FUSION C6/C7 Social History: Social History [...] 3 mg by mouth at bedtime.. nystatin 181542 UNIT/GM Powder No No Si Application by [...] relative hyperdensity in the left MCA and LEASING AGENT territory involving the left basal ganglia, left [...] pt speaks [place] Grenadian in addition to American; does not believe his vocalizations were c/w [...] Staffed with Dr. Jose Signed, Christophe Stein [facility] Internal Medicine PGY-2 Pager [phone] Associated attestation - Shanika Jose MD - [...] minutes with more than 50% spent on counseling/fmxk-vz-bnlh with the patient and/or family Shanika Jose MD, FACP, FAAP Cement Finisher Helper of Clinical Medicine General Internal Medicine [facility] Work Phone: 1(146) 851-630605-10-2022 History and physical note* Christophe Stein MD - 07/22/2021 4:56 PM EDT Admission History & Physical Patient: Ignacio Aquino, 1945, [id number] Physician: Christophe Stein MD, PGY2, Pager [phone], [facility] service Date of face to face patient [...] a mechanical lift this past week at . This morning on first assessment by nurse [...] N/A; Surgeon: Colton Daly MD; [facility]: [facility] CERVICAL FUSION C6/C7 Social History: Social [...] 3 mg by mouth at bedtime.. nystatin [id number] UNIT/GM Powder No No Si Application by [...] relative hyperdensity in the left MCA and LEASING AGENT territory involving the left basal ganglia, left [...] pt speaks [place] Gren[place] in addition to American; does not believe his vocalizations were c/w [...] Staffed with Dr. Damon Arteaga, Christophe Stein [facility] Internal Medicine PGY-2 Pager [phone] Associated attestation - Shanika Jose MD - [...] minutes with more than 50% spent on counseling/iava-az-iyyx with the patient and/or family Shanika Jose MD, FACP, FAAP Cement Finisher Helper of Clinical Medicine General Internal Medicine documented in this encounterSt. [facility]05-10-2022 NoteAcute Coronary Syndrome (ACS): Initial Evaluation and Management: [email or web address]%[email or web address] [email or web address] [facility]05-10-2022 Consult note* Марина Felix APRN-DIVINE - 07/22/2021 [...] Laterality: N/A; Surgeon: Bill Serrato MD; Location: [facility] MAIN OR PACEMAKER PLACEMENT N/A 02/18/2015 Laterality: N/A; Surgeon: Colton Daly MD; Location: [facility] CERVICAL FUSION C6/C7 SOCIAL HISTORY: Social History [...] mouth 4 times daily. Historical Provider nystatin 107420 UNIT/GM Powder 1 Application by Topical route 3 times daily. Patient not taking: Reported on 10/29/2015 04/02/15 Catarino Shepard MD Probiotic Product (PROBIOTIC DAILY PO) take by mouth.. Historical Provider senna 17.2 MG Tab take 1 tablet by mouth daily. 04/02/15 Catarino Shepard MD Tamsulosin HCl 0.4 MG Cap take 1 capsule by mouth at bedtime. 04/26/15 Erika De La Torre, POLISHING MACHINE OPERATOR HELPER-ASSISTANT MAINTENANCE MANAGER Current Meds: Current Facility Administered Meds: Current [...] Can by mouth 4 times daily. nystatin 054746 UNIT/GM Powder 1 Application by Topical route [...] Gait: Deferred Laboratory Results Diagnostics/Procedures: Labs-CBC Labs-Chem 7([facility]) Labs-Coags Additional Labs Lab Results Component Value Date CHOLESTEROL 139 07/13/2021 TRIG 83 07/13/2021 HDL 32 (L) 07/13/2021 LDLCALC 90 07/13/2021 Labs-Hemoglobin A1C Hemoglobin A1C Date Value Ref Range Status 07/13/2021 5.2 4.7 - 5.6 % Final Imaging [facility] Stroke Head: CTA Brain/Neck: OSH per my read no LVO, ACOM aneurysm noted. Assessment/Impression Ignacio Aquino presents with aphasia, not following commands with a distended and painful abdomen. On discharge 5/6 aphasia and not following commands was noted as his exam. Per bedside RN at reports he is normally aphasic, but was [...] Signed, Марина Felix, LUIS-DIVINE 07/22/21 3:15 PM [facility] Work Phone: [phone]) 474-911405-10-2022 Emergency department Note* KEO Trevino - 07/22/2021 2:40 PM EDT Patient presents as level II stroke alert via [facility]. Per transporting medics, patient's spouse and son were present at outside hospital and are expected to arrive today. Family contact info on file if needed. SW will continue to follow. KEO Trevino [phone] [facility]05-10-2022 Consult note* Марина Felix, POLISHING MACHINE OPERATOR HELPER-ASSISTANT MAINTENANCE MANAGER - 07/22/2021 2:40 PM EDT Neurovascular Evaluation [...] Scales Flowsheet Row Most Recent Value Modified [place] Scale Score Premorbid (MRSS) 3 filed on [...] Laterality: N/A; Surgeon: Bill Serrato MD; Location: [facility] MAIN OR PACEMAKER PLACEMENT N/A 02/18/2015 Laterality: N/A; Surgeon: Colton Daly MD; Location: [facility] CERVICAL FUSION C6/C7 SOCIAL HISTORY: Social History [...] in pm. 05/13/15 Erika De La Torre APRN-ASSISTANT MAINTENANCE MANAGER lisinopril 20 MG tablet Take 20 mg [...] mouth 4 times daily. Historical Provider nystatin 545402 UNIT/GM Powder 1 Application by Topical route [...] Can by mouth 4 times daily. nystatin 644689 UNIT/GM Powder 1 Application by Topical route [...] Final Imaging Imaging was not analyzed by [facility] CT Stroke Head: CTA Brain/Neck: OSH per my read no LVO, ACOM aneurysm noted. Assessment/Impression Ignacio Aquino presents with aphasia, not following commands with a distended and painful abdomen. On discharge 5/6 aphasia and not following commands was noted as his exam. Per bedside RN at reports he is normally aphasic, but was [...] 07/22/21 3:15 PM documented [facility] encounter[facility] Physician Emergency department Note* Michael Roblero MD - 07/22/2021 2:39 PM EDT ED Teaching Attending Attestation AND PLAN Briefly, Ignacio Aquino is a 76 y.o. patient with history as below presenting with a change in mental status, coming in on transfer from another hospital, [facility], whereshe was convalescing after a CVA [...] N/A; Surgeon: Colton Daly MD; Location: [facility] CERVICAL FUSION C6/C7 Vitals: 07/22/21 1433 Height: [...] examined the patient. I agree with my bathhouse keeper's documented plan except for the changes in plan outlined above by me. Michael Roblero MD 07/22/2021 2:39 PM [phone] Michael Roblero MD 07/23/[address] [facility] Work Phone: 1(205) 727-818805-10-2022 Emergency department Note* Sarai Ley RN - 07/22/2021 2:36 PM EDT Bed: E038 Expected date: 07/22/21 Expected time: Means of arrival: EMS Comments: [facility] Emergency department Note* Sarai Ley RN - 07/22/2021 2:30 PM EDT Right sided deficits form old stroke, state that this morning he had a change in mentation. Poor report noted from Rehab. Recent admission at this facility. [facility]05[facility]10[facility] Physician Emergency department Note* Mirza Ritchie MD [...] Laterality: N/A; Surgeon: Bill Serrato MD; Location: [facility] MAIN OR PACEMAKER PLACEMENT N/A 02/18/2015 Laterality: N/A; Surgeon: Colton Daly MD; Location: [facility] CERVICAL FUSION C6/C7 CURRENT MEDICATIONS Current Outpatient [...] Can by mouth 4 times daily. nystatin [id number] UNIT/GM Powder 1 Application by Topical route [...] word substitutions. Mirza Ritchie MD Resident 07/22/21 5298 [facility] Work Phone: [phone] Note* Nursing Notes - Steffi Worrell RN - 07/18/2021 10:28 AM EDT Transport here for pt. AVS and ANALISA faxed to [facility]. IVs d/c'd without difficulty. Pt inc of a large amount loose brown stool and cleaned. D/c'd via ambulance to [facility]. at bedside and will leave with a friend when they arrive to transport her. [facility]05-06-2022 Miscellaneous Notes* Nursing Notes - Steffi Worrell RN - 07/18/2021 10:28 AM EDT Transport here for pt. AVS and ANALISA faxed to [facility]. IVs d/c'd without difficulty. Pt inc of a large amount loose brown stool and cleaned. D/c'd via ambulance to [facility]. at bedside and will leave with a friend when they arrive to transport her. * Nursing Notes - Mayela Macdonald RN - 07/17/2021 12:21 PM EDT I spoke with Ignacio Aquino this morning as Circle Saw Operator for the Comprehensive Stroke Center at [facility]. We reviewed the BE FAST sticker (Balance, [...] goal of average po being 50-75%. 5. crop and soil technician to follow. * Plan of Care [...] Goal * Plan of Care - Arabella Palcaios OT - 07/14/2021 12:38 PM EDT Problem: [...] Real - 07/12/2021 4:24 PM EDT Problem: REHABILITATION COUNSELOR - Language Goal: Establish Yes/No Description: Patient [...] [facility] History of Present illness Narrative* CORRIE Mathias - 07/18/2021 9:10 AM EDT Social Work Final Discharge Plan and Transportation Final Discharge Planning Discharge Disposition: Inpatient Rehab Facility Services at Discharge: Speech Therapy, Occupational Therapy, Physical Therapy Community Agency Name(s) For Handoff: [facility] IPR Name For Handoff: PRUDENCIO Fermin Phone For Handoff: [phone] Fax For Handoff: Selected Continued Care - Admitted Since 07/12/2021 Destination Coordination complete. Service Provider Selected Services Address Phone Fax Patient Preferred [facility] Inpatient Rehabilitation [address] [facility] [id number] -- -- Plan Plan: Discharge to inpatient rehab Patient/Family In Agreement With Plan: yes Backside Grinder Called: Yes Name of Transport Company: [employer] Transport ETA of Ambulance: 10 AM Tuesday 07/18 Transfer Mode: gurney Mode of Transfer: ambulance Transfer/Transport Equipment: copy of patient Records Patient medically stable for discharge per physician/medical team. SW confirmed with [facility] that they are able to accept the patient this date. Insurance pre-certification is not required. SW arranged transport as indicated above, ETA is 10 AM. The patient has no specialized equipment needs for transportation. AVS/ANALISA completed from a SW standpoint. SW updated the bedside RN, CCM, facility and patient/solar sales representative and assessor of the discharge plan and transport time. Patient/Die Cutter Apprentice remain inagreement with the discharge plan. Bedside RN to call report and fax AVS/ANALISA. Ambulance form left at the spray unit feeder desk with a request for a printed transfer report. Discharge Instruction for Bedside RN: 1. Confirm the Ambulatory Order is in the ANALISA. 2. Print the ANALISA and AVS. 3. Print the Discharge Summary for facilities (if available). 4. Fax ANALISA, AVS and Discharge Summary (when applicable) to agency or facility. 5. Call the agency or facility for report. LIYAH Umaña, CORRIE-S Head Of Cytogenetics for 10 BS * Joss Engle - 07/18/2021 8:57 AM EDT Final Discharge Planning and Transportation Final Discharge Planning Discharge Disposition: Inpatient Rehab Facility Services at Discharge: Physical Therapy, Occupational Therapy, Nursing Home, Speech Therapy Selected Continued Care - Admitted Since 07/12/2021 Destination Coordination complete. Service Provider Selected Services Address Phone Fax Patient Preferred [facility] Inpatient Rehabilitation [address] [facility] [address] -- -- Plan Plan: Pt is discharging [...] for phone and fax. LIYAH Herrera LISW-S, [facility]- Clinical Lithographic ProoferTellers Supervisor [phone] * CORRIE Mathias - 07/17/2021 1:43 PM EDT Placement Plan Expected Discharge Date: 07/18/2021 Referred Level of Care: IPR Barriers: transportation Current Referrals and Status 1. [facility]- accepted Transport arranged for tomorrow at 10 AM with [facility]. LIYAH Umaña LISW-S Head Of Cytogenetics for 10 BS * Calista Bowers - 07/16/2021 3:45 PM EDT Ignacio Aquino's case has been reviewed and he has been denied for IPR at [facility]. He does not appear as if he would be able to tolerate 3 hours of therapy/day and unlikely to be able to achieve discharge to home within IPR length of stay. Thank you for the referral, Kayla Bowers,PT [facility] Clinical Appeals Auditor [phone] * CORRIE Mathias - 07/16/2021 2:49 PM EDT Placement Plan Expected Discharge Date: 07/18/2021 Referred Level of Care: IPR Barriers: medical Current Referrals and Status 1. [facility]- denied 2. [facility]- accepted SW met with pt and spouse at bedside and updated her on status of referrals listed above. Spouse states she is in agreement with placement at [facility]. SW notified facility and will arrange discharge. LIYAH Umaña, CORRIE-S Head Of Cytogenetics for 10 BSH * Calista Bowers - 07/16/2021 1:09 PM EDT Referral has been received to evaluate for admission to [facility] for Inpt. Rehab. Will review with PM&R physician and notify you of the determination. Thank you for the referral, Kayla Bowers,LATOSHA [facility] Clinical Appeals Auditor [phone] * Kavita Contreras PT - 07/16/2021 11:12 AM EDT Acute Physical Therapy Treatment Prior to Admission [facility] score(s): PRIOR LEVEL AM-PAC Mobility Raw Score: 21 Current AM-PAC score(s): CURRENT AM-PAC Mobility Raw Score: 7 Based on the above AM-PAC score(s) and PT clinical judgment, patient is a good candidate for discharge to Nursing Home Facility Discharge Barriers: Patient needs assistance [...] break Mobility Assessment/Intervention: Supine to Sit Mobility [place] Level: Supine->Sit: maximum assist (25% patient effort) Physical Assist: Supine->Sit: 2 person assist Bed Features/Set-up: Supine->Sit: Head of bed elevated, Use of bed rail Skilled Rationale: Sequencing, Positioning, Hand placement, Verbal cues Skilled Intervention/Details: Supine->Sit: Despite increased time and cues patient required max assist of 2 Sit to Supine Mobility [place] Level: Sit->Supine: maximum assist (25% patient effort) Physical Assist: Sit->Supine: 2 person assist Bed Features/Set-up: Sit->Supine: Flat, Use of bed rail Skilled Rationale: Positioning, Sequencing, Hand placement, Verbal cues Transfer Assessment/Intervention: Sit to Stand Transfer [place] Level: Sit->Stand: maximum assist (25% patient effort) [...] Mobility Assessment/Intervention: Stairs Assessment/Intervention: Outcome Score(s): CURRENT [facility] Basic Mobility Inpatient Short Form Turning over in bed: 2 - A Lot of Assistance Sitting/standing from chair: 1 - Total Assistance Moving from lying on back to sittin - Total Assistance Moving to and from bed to chair: 1 - Total Assistance Walk in hospital room: 1 - Total Assistance Climbing 3-5 steps with a railin - Total Assistance CURRENT [facility] Mobility Raw Score: 7 CURRENT [facility] Mobility Functional Limitation/Modifier: 92.36% Currently Impaired [...] OT clinical judgment, discharge destination recommendation is: Nursing Home Facility Discharge Barriers: Patient needs assistance [...] Sequencing, Initiation, Attention Grooming Skilled Rationale (Verbal/Tactile/Visual/Demonstration): Lweo-[id number]-[id number] assist Grooming Intervention/Details: max hand over hand [...] Positioning Mobility Assessment/Intervention: Supine to Sit Mobility [place] Level: Supine->Sit: maximum assist (25% patient effort) Physical Assist: Supine->Sit: 2 person assist Bed Features/Set-up: Supine->Sit: Head of bed elevated Skilled Rationale: Verbal cues, Hand placement Transfer Assessment/Intervention: Sit to Stand Transfer [place] Level: Sit->Stand: maximum assist (25% patient effort) [...] OT Goals Plan of Care by Arabella Palaciso OT at 07/16/2021 3:05 PM Version 1 [...] Serrato in 4 weeks. Anticipated discharge disposition: Nursing Home Facility (vs IP Rehab) Anticipated Services at Discharge: Physical Therapy, Occupational Therapy, Nursing Home, Speech Therapy, Outpatient follow up Barriers to Discharge: Uninsured/Underinsured Explanation of Barriers: Pt does not have rx insurance coverage Readmission Risk Score Risk of Readmission: 2.6 Category Reference: High:16-100 Mod-High:10-16 Mod-Low: 5-10 Low: 0-5 Joss Martin, WAREHOUSE LEAD, INSPECTOR ALIGNING-S, ACM-SW Clinical Lithographic ProoferTellers Supervisor [phone] * BHASKAR Choi - 07/15/2021 2:14 PM EDT NOTE Nutrition Plan of Care: 1. Continue current diet order. 2. Will provide strawberry/ chocolate Ensure Enlive (350 kcal, 20 g PRO each) once daily with Breakfast to optimize intakes and skin integrity. 3. Monitor for significant weight changes. 4. Monitor and encourage po intakes with goal of average po being 50-75%. 5. crop and soil technician to follow. Ignacio Aquino is a 76 y.o. male admitted with a past medical history significant for hypertension, [id number] + post-traumatic myelopathy w/ C5 incomplete tetraplegia, neurogenic bladder + bowel, depression, anxiety, traumatic optic neuropathy, who presents as a Level 1 Stroke Alert. Information obtained from family On Air Talent Screening Pt's appetite is poor. Pt with [...] Standing Number of Occurrences: 1 Food Allergies reviewed:[facility] Cultural or Bahai Restrictions/Preferences: none Skin Candace Score: 14 STAND [...] for tolerance and any changes. Anjelica Felder [facility] Glass Checker Student Cosigned by: BHASKAR Choi at 07/15/2021 [...] goal of average po being 50-75%. 5. crop and soil technician to follow. Ignacio Aquino is a 76 y.o. male admitted with a past medical history significant for hypertension, [id number] + post-traumatic myelopathy w/ C5 incomplete tetraplegia, neurogenic bladder + bowel, depression, anxiety, traumatic optic neuropathy, who presents as a Level 1 Stroke Alert. Information obtained from family On Air Talent Screening Pt's appetite is poor. Pt with [...] Occurrences: 1 Food Allergies reviewed:NKFA Cultural or Bahai Restrictions/Preferences: none Skin Candace Score: 14 STAND [...] for tolerance and any changes. Anjelica Felder [facility] Glass Checker Student * Kavita Contreras PT - 07/15/2021 12:00 PM EDT [...] EDT Speech Language Pathology Attempt Note 07/15/2021 REHABILITATION COUNSELOR Therapy Completed: Attempted Attempted Reason: Patient is unavailable due to test/procedure JUAN Valente Time In: 1029 Time Out: 1029 Total Visit Time: 0 minutes Total Treatment Time (skilled, billable minutes): 0 minutes * Joss Engle - 07/14/2021 3:37 PM EDTSolvin: Initial Assessment Discharge Planning Patient Assessment Admission Assessment Patient Assessment Completed: Yes Anticipated discharge disposition: Nursing Home Facility (vs IP Rehab) Reason for Admission: stroke workup Is the patient able to participate in the assessment?: No Explanation of why patient is unable to participate: AMS Information source: Spouse Information Source Name/Contact: Zach Aquino Demographics Verified and Updated: Yes Has the patient been admitted to any hospital in the last 30 days?: Transferred From Outside Hospital ([facility]) Advanced Care Planning Has the patient completed Advance Directives?: Completed, Not Available in Medical Record Copy of Advance Directives was requested?: Yes Advance Directives Requested From: spouse Legal Next of Kin Does the patient have a Guardian?: No Spouse: Yes Name and Contact information: Zach Aquino [phone] Adult Child(meme), List All Adult Children: Yes [...] Is the patient from a facility or residential?: No Patient lives with: Spouse or Partner Living Environment: House How many steps does the patient have to navigate to enter or inside the home? : ramp Does the patient have a first floor set-up with bed and bathroom?: Yes Patient Caregiving Responsibilities: Self Patient-identified caregiver/support network: Family, Friends, Protestant Who does the patient identify as a [...] consults?: Yes Select consult type: PT, OT, REHABILITATION COUNSELOR, Social Work Does the patient's home require any home modifications for discharge? : No CM to recommend therapy or other consults? : No Medication Management Does the patient have prescription insurance coverage? : No (spouse says they use any discount cards that their pharmacy offers if needed) Is the patient on Anticoagulation? : No (he was prescribed something but didn't take it) [employer] [facility] [address] [place] [id number] [address] [address] Core Maker Helper Does the patient or solar sales representative and assessor express financial concerns? : No Employed?: Yes Coping/Stress Concerns about patient s coping and stress?: Unable to Assess Concerns about patient s caregiver s coping and stress?: No Values and Beliefs Cultural or holiness practices that may impact discharge planning and/or medical care?: No Initial Discharge Planning Anticipated discharge disposition: Nursing Home Facility (vs IP Rehab) Transportation Available for Discharge: Ambulance Anticipated DME: none Anticipated Services at Discharge: Physical Therapy, Occupational Therapy, Nursing Home, Speech Therapy, Outpatient follow up Patient Assessment Completed: Yes Risk of Readmission: 5.9 Category Reference: High:16-100 Mod-High:10-16 Mod-Low: 5-10 Low: 0-5 Expected Discharge Date: 07/16/21 Discharge Planning Summary Pt lives with spouse and required some assistance with ADLs and the use of DME ROLLER SKATES ASSEMBLER due to a spinal cord injury in 2014. He was still fairly independent and driving prior to this acute stroke. Discussed recommendation for SNF at discharge. Pt/family are also familiar with [facility] level of care as he went to [facility] to rehab his prior injury. Pt's spouse says she would like to discuss discharge planswith their 3 sons. Case Management Plan 1. Introduced role of CM to pt. CM to follow for care coordination and discharge planning needs. 2. SW updated. 3. Neurovascular follow-up appointment scheduled for 08/07/21. Joss Martin, WAREHOUSE LEAD, INSPECTOR ALIGNING-S, ACM-BUZZ Clinical Lithographic ProoferTellers Supervisor [phone] * Kavita Contreras, PT - 07/14/2021 1:11 PM EDT Acute Physical Therapy Treatment Prior to Admission AMPA score(s): PRIOR LEVEL AM-PAC Mobility Raw Score: 21 Current AM-PAC score(s): CURRENT AM-PAC Mobility Raw Score: 7 Based on the above AM-PAC score(s) and PT clinical judgment, patient is a good candidate for discharge to Nursing Home Facility Discharge Barriers: Patient needs assistance [...] break Mobility Assessment/Intervention: Supine to Sit Mobility [place] Level: Supine->Sit: maximum assist (25% patient effort) Physical Assist: Supine->Sit: 2 person assist Bed Features/Set-up: Supine->Sit: Head of bed elevated, Use of bed rail Skilled Rationale: Positioning, Sequencing, Hand placement, Verbal cues Skilled Intervention/Details: Supine->Sit: Pt with minimal to no intiation, cues for log rollingdue to reporting patient with back pain Transfer Assessment/Intervention: Sit to Stand Transfer [place] Level: Sit->Stand: maximum assist (25% patient effort) [...] with a railin - Total Assistance CURRENT -[facility] Mobility Raw Score: 7 CURRENT -[facility] Mobility Functional Limitation/Modifier: 92.36% Currently Impaired in [...] OT clinical judgment, discharge destination recommendation is: Nursing Home Facility Discharge Barriers: Patient needs assistance [...] cognition) Mobility Assessment: Supine to Sit Mobility [place] Level: Supine->Sit: maximum assist (25% patient effort) Physical Assist: Supine->Sit: 2 person assist Bed Features/Set-up: Supine->Sit: Head of bed elevated Skilled Rationale: Verbal cues, Hand placement, Sequencing, Positioning Skilled Intervention/Details: Supine->Sit: Cues for log roll technique Transfer Assessment: Sit to Stand Transfer [place] Level: Sit->Stand: maximum assist (25% patient effort) Physical Assist: Sit->Stand: 2 person assist Assistive Device: Sit->Stand: (arm in arm assist X 2 trials, sherly steady third stand) Skilled Rationale: Positioning, Full extension to upright positioning/posture, Finding/maintaining midline positioning Skilled Intervention/Details: Sit->Stand: max cues for upright postitioning, but minimal success. Outcome Score(s): Fugl-Ca UE Motor Score: (Unable to score due to cognition) CURRENT [facility] Daily Activity Inpatient Short Form Putting on/Taking Off Lower Body Clothin - Total Assistance Bathin - A Lot of Assistance Toiletin - Total Assistance Putting on/Taking Off Upper Body Clothin - A Lot of Assistance Groomin - A Lot of Assistance Eatin - A Lot of Assistance CURRENT [facility] Activity Raw Score: 10 CURRENT [facility] Activity Functional Limitation/Modifier: 74.70% Currently Impaired [...] Acute Physical Therapy Evaluation Prior to Admission [facility] score(s): PRIOR LEVEL AM-PAC Mobility Raw Score: 21 Current AM-PAC score(s): CURRENT AM-PAC Mobility Raw Score: 8 Based on the above AM-PAC score(s) and PT clinical judgment, patient is a good candidate for discharge to Nursing Home Facility Discharge Barriers: Patient needs assistance [...] LEs Mobility Assessment: Supine to Sit Mobility [place] Level: Supine->Sit: maximum assist (25% patient effort) Bed Features/Set-up: Supine->Sit: Head of bed elevated, Use of bed rail Skilled Rationale: Positioning, Sequencing, Hand placement, Verbal cues Sit to Supine Mobility [place] Level: Sit->Supine: maximum assist (25% patient effort) [...] surface Gait/Functional Mobility: Stairs: Outcome Score(s): CURRENT [facility] Basic Mobility Inpatient Short Form Turning [...] with a railin - Total Assistance CURRENT [facility] Mobility Raw Score: 8 CURRENT [facility] Mobility Functional Limitation/Modifier: 86.62% Currently Impaired [...] - 07/12/2021 4:24 PM EDT Acute Care REHABILITATION COUNSELOR Speech/Language/Cognitive Evaluation Best mode of Communication: no reliable mode of communication Discharge Recommendations: Based on the below outcome measures/assessment score(s) and REHABILITATION COUNSELOR clinicaljudgment, discharge destination recommendation is: Deferred to PT/OT recomendations related to mobility Discharge Barriers: Inability to communicate basic wants/needs Supporting factors for discharge setting: Impaired speech and language skills limiting ability to communicate basic wants/needs Acute REHABILITATION COUNSELOR Outcomes Tracking Communicate basic wants and needs?: [...] numbers, as well as intermittently speaking in [place] (per family at bedside, reports that he is not making sense in [place] either). Able to complete automatic speech [...] or apraxia. Pt would benefit from ongoing REHABILITATION COUNSELOR services to address noted deficits and assist pt in communicating wants and needs Patient Instruction/Education this session: Role of REHABILITATION COUNSELOR and POC, provided family education regarding aphasia Plan for next session: Continue POC, ongoing assessment, family education regarding aphasia Subjective: Pt laying in bed counting upon REHABILITATION COUNSELOR entering room, and son at bedside. Pain: General Pain Documentation (Adult, OB, Peds) Presence of Pain: non-verbal indicator of pain/discomfort not present Patient History Comments: Ignacio Aquino is a 76 y.o. male who presents from [facility] with R sided weaknessand aphasia, NIHSS of [address] head w/o acute hemorrhage, TPA administered. [facility]. NIHSS [...] Asthenia (A): 0 Strain (S): 0 Acute REHABILITATION COUNSELOR Goals Plan of Care by JUAN Real at 07/12/2021 4:24 PM Version 1 of 1 Problem: REHABILITATION COUNSELOR - Language Goal: Establish Yes/No Description: Patient [...] per RN verbal report. Swallow eval by REHABILITATION COUNSELOR will not be completed at this time unless this service notified of change in status or re- consult for swallow eval placed. REHABILITATION COUNSELOR to proceed with speech/language/cognitive evaluation per order. Thank you. No charge Aggie Wu MA, [facility]-REHABILITATION COUNSELOR Email: [email or web address] documented in this encounterSt. [facility] Note* Nursing Notes - Mayela Macdonald RN - 07/17/2021 12:21 PM EDT I spoke with Ignacio Aquino this morning as Circle Saw Operator for the Comprehensive Stroke Center at [facility]. We reviewed the BE FAST sticker (Balance, Eyes, Facialdroop or uneven smile, Arm numbness or weakness - especially on one side, Speech that is slurred ordifficult to talk or understand, and Time to call 911). I then left my card assuring the patient and /or family that they should feel free to contact me with any questions. [facility]05-04-2022 Note* Plan of Care - Arabella Palacios [...] ability to safely complete ADLs. Outcome: Ongoing [facility]05-04-2022 Note* Plan of Care - Kavita Contreras [...] mobility and safety. Outcome: Progressing Toward Goal [facility]05-04-2022 Note* Plan of Care - Mirza Guerra [...] questions. Mirza Guerra MD, Neurosurgery NS2 ([phone]) [facility] Work Phone: 1(818) 338-388305-03-2022 Hospital Discharge instructions* Discharge Instructions* Todd Multani APRN-ASSISTANT MAINTENANCE MANAGER - 07/15/2021 3:44 PM EDT Please take [...] may call your neurovascular doctors office at [phone], if you have questions between 8:30 am and 4:30 pm. - For off hours or the weekend you may call the office or the hospital jigsaw operator at and ask for the stroke resident police matron to be paged. - If you have any questions or needs, please call Mayela Macdonald RN, stroke recreation program coordinator at [phone] Mon-Fri from 7- ? Any questions concerning your discharge instructions please call Case Management Office [phone] Patient Stroke Resources: [facility] Stroke Support [facility] Stroke Support Group is for stroke survivors, friends, andfamily members. Meets every Wednesday from 12:00PM to 1:00PM at [facility] ([facility] [address] [place] [address] Jennifer Escobedo, at [phone]. If you are outside of the [place] area, contact [employer] [place] [employer] at www.strokeassociation.org or 3-665-5-stroke, or for supports groups in your area. Also refer to the Stroke Education booklet you received as part of your stroke education while you were a patient for additional resources Additional Contacts: Evening and Weekend Contacts If you have questions or concerns during evening, weekend, or holiday hours, please call: -[facility] and [facility] jigsaw operator at [phone]. -[facility] jigsaw operator at [phone] Ask the jigsaw operator to page the on-call doctor for [...] Other reference numbers: [facility] Intake Office at [phone]; [employer] at 051-735-6407; or Suicide Prevention Hotline at 632-733-1563. *Helpful phone numbers: Free Crisis Hotline: 1-268-382-TALK ( ) Suicide Hotline: 248.799.6372 Seniors Suicide Hotline: 460.795.3515 [facility] Youth: 853.319.6963 Mental [facility] [place]: 547.827.2305 (free counseling) Net[employer] Access Hotline: 575-367-TILX (591-169-7263) 24-hour crisis text hotline: Text the word 4hope to 110-281 for crisis support. Texting this number is [...] you may qualify for Medicaid/public assistance: The [facility] Department of Job and Family Services can now process tong (TANF), food (SNAP) and Medicaid Applications over the phone. Please call 2-021-298[facility] (2684) and apply over the phone or apply online at www.benefits.[place].gov. Wednesday-Wednesday 8am-12pm noon. Medication Assistance Programs [employer] members can buy 100+ common prescriptions for FREE, $3 or $6. Annual membership is $36 for individuals and $72 for families (up to 6 people, including pets). Sign up online or enroll at your nearest pharmacy! -iMER, web site can provide a significant number [...] you take each medicine. Include all prescription cyfxfhf-gqq-wqlihhn medicines, vitamins, and supplements. Keep this list [...] plan your refills so that you can crop picker all your medicines at the same [...] -Fever or chills [facility]* Plan of Care - BHASKAR [...] goal of average po being 50-75%. 5. crop and soil technician to follow. [facility]05-03-2022 Nurse Surgical operation note* Yumiko Albarado RN - 07/15/2021 12:32 PM EDT 1050-Patient here from OR. Hooked up to monitor. VSS. Bedside report done. 1130-Called for sign out. 1215-Called report to floor. 1240-Patient to floor per bed with tele and pulse ox. [facility]05-03-2022 Nurse Note* Yumiko Albarado RN - 07/15/2021 12:32 PM EDT 1050-Patient here from OR. Hooked up to monitor. VSS. Bedside report done. 1130-Called for sign out. 1215-Called report to floor. 1240-Patient to floor per bed with tele and pulse ox. [facility]* Plan of Care - Kavita Contreras [...] mobility and safety. Outcome: Progressing Toward Goal [facility]05-02-2022 Note* Plan of Care - Arabella Palacios [...] ability to safely complete ADLs. Outcome: Ongoing [facility]05-02-2022 Note* Plan of Care - Shaun Dumas [...] (reference Stroke (Ischemic) (Adult) CPG). Outcome: Ongoing [facility]05-01-2022 NoteIMPRESSION: Interval progression in the loss of john-white matter differentiation involving the left cerebral hemisphere as well as progression/development of focal hypoattenuating areas involving the left basal ganglia/mcdermott radiata as well as the left occipital lobe. The findings are consistent with evolving infarcts. No evidence of hemorrhagic transformation. No significant midline shift. [id number] Note* Plan of Care - Kavita Contreras [...] improve functional mobility and safety. Outcome: Ongoing [facility]04-30-2022 Note* Plan of Care - JUAN Real - 07/12/2021 4:24 PM EDT Problem: REHABILITATION COUNSELOR - Language Goal: Establish Yes/No Description: Patient [...] improve word-finding and functional communication. Outcome: Ongoing [facility]04-30-2022 Emergency department Note* KEO Michael - 07/12/2021 [...] the shift for Patient/Family Support. Yovany Zheng Bulb Assembler, Emergency Dept., [facility] [phone] [facility]04-30-2022 Emergency department Note* KEO Michael - 07/12/2021 [...] the shift for Patient/Family Support. Yovany Zheng Bulb Assembler, Emergency Dept., [facility] [place] [phone] * Tessa Calvert RN - 07/12/2021 12:44 PM EDT Abd taunt, left bowel sounds faint. Dr Flores aware, not worried mejía is draining fine. * Tessa Calvert RN - 07/12/2021 12:02 PM EDT Flush complete. Patient started to speak [place]. Difficult to get him to follow commands. Spoke with , said his [place] was not making sense, he would not answer questions or follow commands. * Satinder Buckner MD - 07/12/2021 11:42 AM EDT ED Attending Past Medical History: Diagnosis Date Anemia Central cord syndrome (HCC) HTN (hypertension) Obesity Ignacio Aquino is a 76 y.o. male. Sudden R weakness and aphasia [address] and TPA given [employer]. H/o [facility] wheelchair for BLE weakness r/t prior [...] 07/12/21 1244 * Mallory Bradley [facility] - 07/12/2021 11:39 AM EDT Department of [...] completely infused and therefore the transition to [facility] pump was facilitated. Instructed [...] further questions. Name: Mallory Bradley RPH Phone: [phone] Date/Time: 07/12/2021 11:39 AM * Tessa Calvert [...] N/A; Surgeon: Colton Daly MD; Location[facility] CERVICAL FUSION C6/C7 Family History Problem Relation [...] Resident 07/12/21 1537 documented in this encounterOS[facility]* Certification - Jaxon Dahl MD - 07/12/2021 1:05 PM EDT I certify that this patient requires inpatient services at this time. I anticipate the expected length of stay will include at least two midnights. Inpatient services are due to the following medicalconcerns: stroke. [facility] for [facility]04-30-2022 Emergency department Note* Tessa Calvert RN - 07/12/2021 12:44 PM EDT Abd taunt, left bowel sounds faint. Dr Flores aware, not worried mejía is draining fine. [facility]04-30-2022 NoteAcute Coronary Syndrome (ACS): Initial Evaluation and Management: [email or web address] [email or web address] [facility]04-30-2022 Emergency department Note* Tessa Calvert RN - 07/12/2021 12:02 PM EDT Flush complete. Patient started to speak [place]. Difficult to get him to follow commands. Spoke with , said his [place] was not making sense, he would not answer questions or follow commands. [facility]04-30-2022 Physician Emergency department Note* Satinder Buckner MD - 07/12/2021 11:42 AM EDT ED Attending Past Medical History: Diagnosis Date Anemia Central cord syndrome (HCC) HTN (hypertension) Obesity Ignacio Aquino is a 76 y.o. male. Sudden R weakness and aphasia [address] and TPA given [employer]. H/o [facility] wheelchair for BLE weakness r/t prior [...] nursing, and consultants. Satinder Buckner MD 07/12/[address] [facility] Work Phone: 1(684) 474-790304-30-2022 Emergency department Note* Mallory Bradley RP - [...] completely infused and therefore the transition to [facility] pump was facilitated. Instructed [...] further questions. Name: Mallory Bradley RPH Phone: [phone] Date/Time: 07/12/2021 11:[address] [facility]04-30-2022 Emergency department Note* Tessa Calvert RN - 07/12/2021 11:32 AM EDT Patient arrived via Air. LKW 800am. 900 am slid out of bed, did not hit head. TPA started at 1001 9mg blous- 81 mg. Flush 10:44. Patient is not on blood thinners (however was previously). WC bound d/t previous neck injury. BS [address] [facility]04-30-2022 Emergency department Note* Tessa Calvert RN - 07/12/2021 11:31 AM EDT Bed: E034 Expected date: 07/12/21 Expected time: 11:25 AM Means of arrival: Air [facility] Emergency department Note* Michael Contreras MD [...] further evaluation. Michael Contreras MD Resident 07/12/21 153 [facility] Work Phone: Evaluation + Plan note Future Appointments Appointment Date:04/16/2021 09:30:00 AM Scheduled Provider:MALLORY MCPHERSON DO Location:[employer] [employer] [place] Appointment Type:PC OV Future Scheduled Tests Laboratory* Prostate Specific Antigen 04/19/20 [facility] Evaluation + Plan note Future Appointments Appointment Date:01/07/2022 02:45:00 PM Scheduled Provider:MALLORY MCPHERSON DO Location:[employer] [employer] [place] Appointment Type:PC OV Future Scheduled Tests Laboratory* Prostate Specific Antigen 04/16/21 [facility] Evaluation + Plan note Future Appointments Appointment Date:01/06/2023 02:00:00 PM Scheduled Provider:MALLORY MCPHERSON DO Location:[employer] TOMPKINS Appointment Type:PC OV Follow Up Future Scheduled Tests Laboratory* Prostate Specific Antigen 07/08/22 * Thyroid Stimulating Hormone 07/08/22 * Albumin/Creatinine Ratio, Random Urine 07/08/22 * Complete Metabolic Panel 07/08/22 [facility] Evaluation + Plan note Future Appointments Appointment Date:07/07/2023 01:00:00 PM Scheduled Provider:MALLORY MCPHERSON DO Location:[employer] [place] Appointment Type:PC OV Follow Up [facility] Evaluation + Plan note Future Appointments Appointment Date:01/05/2024 01:30:00 PM Scheduled Provider:MALLORY MCPHERSON DO Location:[employer] [employer] [place] Appointment Type:PC OV [facility] Evaluation + Plan note Future Appointments Appointment Date:07/05/2024 01:30:00 PM Scheduled Provider:MALLORY MCPHERSON DO Location:[employer] [employer] [place] Appointment Type:PC OV Follow Up Future Scheduled Tests Laboratory* Prostate Specific Antigen 01/05/24 * Complete Blood Count 01/05/24 * Complete Metabolic Panel 01/05/24 [facility] evaluation note* Diagnosis Onset Date Resolution Status Atrial arrhythmia acute Lightheaded acute History of permanent cardiac pacemaker placement chronic Sick sinus syndrome resolved Atrial fibrillation acute History of permanent cardiac pacemaker placement chronic Sick sinus syndrome resolved Atrial fibrillation acute History of permanent cardiac pacemaker placement chronic Sick sinus syndrome resolved [facility] Work Phone: evaluation note* Diagnosis Onset Date Resolution Status Atrial fibrillation acute History of permanent cardiac pacemaker placement chronic Sick sinus syndrome resolved Atrial fibrillation acute History of permanent cardiac pacemaker placement chronic Sick sinus syndrome resolved [facility] Work Phone: Evaluation note* Diagnosis 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- Primary Stroke Unspecified cerebral artery occlusion with cerebral infarction [facility] Diagnosis Onset Date Resolution Status [...] acute Sick sinus syndrome acute Hypertension chronic [facility] Work Phone: Evaluation note* Diagnosis Onset Date Resolution Status Atrial fibrillation acute History of permanent cardiac pacemaker placement chronic Sick sinus syndrome resolved Atrial fibrillation acute History of permanent cardiac pacemaker placement chronic Sick sinus syndrome resolved Anterior communicating artery aneurysm acute Aphasia acute Atrial fibrillation acute [id number] acute Debility acute Depression acute Dysarthria acute Hypokalemia acute Left hemiparesis acute AAA (abdominal aortic aneurysm) without rupture chronic Anemia chronic Central cord syndrome chroni c Essential hypertension chron ic History of permanent cardiac pacemaker placement chronic Hypertension chronic 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 Neurogenic bladder chronic Neurogenic bowel chronic Neuropathy chronic 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.9) 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 Paraplegia chronic Sick sinus syndrome chronic Anterior communicating artery aneurysm acute Aphasia acute Atrial fibrillation acute [id number] acute Debility acute Hypokalemia acute Left hemiparesis acute History of permanent cardiac pacemaker placement chronic Hypertension chronic 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 Neurogenic bladder chronic Neurogenic bowel chronic 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.9) 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 Paraplegia chronic [facility] Work Phone: Evaluation note* Diagnosis Altered mental [...] disorder Aphasia [facility] Diagnosis Onset Date Resolution Status Atrial fibrillation acute Sick sinus syndrome resolved Atrial fibrillation acute Sick sinus syndrome resolved Aphasia acute Atrial fibrillation acute [id number] acute Debility acute Depression acute Dysarthria acute 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 Neurogenic bowel chronic Hypokalemia resolved Aphasia acute Atrial fibrillation acute [id number] acute Debility acute 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 Neurogenic bowel chronic Hypokalemia resolved Aphasia acute Atrial fibrillation acute [id number] acute Chronic anticoagulation acut e Debility acute Depression acute Dysarthria acute Heme + stool acute [id number] acute Normochromic normocytic anemia acute Pressure ulcer acute 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 Neurogenic bladder chronic Neurogenic bowel chronic Pacemaker chronic Prostatic hypertrophy chroni c Catheter-associated urinary tract infection resolved Decubitus ulcer, stage I res olved Decubitus ulcer, stage II re solved Dehydration resolved Hypokalemia resolved Orthostatic hypotension reso lved TIA (transient ischemic attack) resolved [facility] Work Phone: Evaluation note* Diagnosis Onset Date Resolution Status Pacemaker chronic Sick sinus syndrome resolved Aphasia acute Atrial fibrillation acute [id number] acute Depression acute Dysarthria acute 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 Neurogenic bowel chronic Hypokalemia resolved Aphasia acute Atrial fibrillation acute [id number] acute 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 Neurogenic bowel chronic Hypokalemia resolved Aphasia acute Atrial fibrillation acute [id number] acute Chronic anticoagulation acut e Debility acute Depression acute Dysarthria acute Heme + stool acute [id number] acute Iron deficiency anemia acute Normochromic normocytic [...] tract infection acute Transient ischemic attack ac [place] Atrial fibrillation acute Bilateral lower extremity edema acute CVA (cerebral vascular accident) acute Sick sinus syndrome resolved [facility] Work Phone: Evaluation note* Diagnosis Onset Date Resolution Status Pacemaker chronic Sick sinus syndrome resolved Aphasia acute Atrial fibrillation acute [id number] acute Depression acute Dysarthria acute 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 Neurogenic bowel chronic Hypokalemia resolved Aphasia acute Atrial fibrillation acute [id number] acute 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 Neurogenic bowel chronic Hypokalemia resolved Aphasia acute Atrial fibrillation acute [id number] acute Chronic anticoagulation acut e Debility acute Depression acute Dysarthria acute Heme + stool acute [id number] acute Iron deficiency anemia acute Normochromic normocytic [...] tract infection acute Transient ischemic attack ac [place] Urinary tract infection acut e Atrial fibrillation acute Bilateral lower extremity edema acute CVA (cerebral vascular accident) acute Sick sinus syndrome resolved [facility] Work Phone: Evaluation note* Diagnosis Onset Date Resolution Status Pacemaker chronic Sick sinus syndrome resolved Aphasia acute Atrial fibrillation acute [id number] acute Depression acute Dysarthria acute 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 Neurogenic bowel chronic Hypokalemia resolved Aphasia acute Atrial fibrillation acute [id number] acute 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 Neurogenic bowel chronic Hypokalemia resolved Aphasia acute Atrial fibrillation acute [id number] acute Chronic anticoagulation acut e Debility acute Depression acute Dysarthria acute Heme + stool acute [id number] acute Iron deficiency anemia acute Normochromic normocytic [...] vascular accident) acute Sick sinus syndrome resolved [facility] Work Phone: Evaluation note* Diagnosis Cerebral infarction, unspecified mechanism (HCC)- Primary Quadriplegia, C5-C7, incomplete (HCC) Quadriplegia, C5-C7, incomplete Gait abnormality Abnormality of gait Mixed receptive-expressive language disorder [facility] Diagnosis Onset Date Resolution Status Atrial fibrillation acute CVA (cerebral vascular accident) acute Sick sinus syndrome resolved Pacemaker chronic Sick sinus syndrome resolved [facility] Work Phone: Evaluation note* Diagnosis Onset Date Resolution Status Atrial fibrillation acute CVA (cerebral vascular accident) acute Sick sinus syndrome resolved Pacemaker chronic Sick sinus syndrome resolved Nausea & vomiting acute Pancreatitis acute UTI (urinary tract infection) acute [facility] Work Phone: Evaluation note* Diagnosis Onset Date Resolution Status Pacemaker chronic Sick sinus syndrome resolved Nausea & vomiting resolved Pancreatitis resolved UTI (urinary tract infection) resolved [facility] Work Phone: Evaluation note* Diagnosis Onset Date Resolution Status Nausea & vomiting resolved Pancreatitis resolved UTI (urinary tract infection) resolved Atrial fibrillation acute Bilateral lower extremity edema acute CVA (cerebral vascular accident) acute Fatigue acute Sick sinus syndrome resolved [facility] Work Phone: Evaluation note* Diagnosis Onset Date Resolution Status Atrial fibrillation acute Bilateral lower extremity edema acute CVA (cerebral vascular accident) acute Sick sinus syndrome resolved [facility] Work Phone: Hospital course Narrative No data available for this section [facility] Hospital Discharge instructions No data available for this section [facility] Progress note No data available for this section [facility] Reason for referral (narrative)* Consultation (Routine) - New Request Specialty Diagnoses / Procedures Referred By Contac t Referred To Contact Neurology Diagnoses 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 Todd Multani POLISHING MACHINE OPERATOR HELPER-ASSISTANT MAINTENANCE MANAGER [address] [place] [address] Referral ID Status Reason Start Date Expiration Date V isits Requested Visits Authorized [id number] New Request 07/15/2021 08/09/2022 1 1 Electronically signed by Todd Multani POLISHING MACHINE OPERATOR HELPER-ASSISTANT MAINTENANCE MANAGER at 07/15/2021 3:46 PM EDT * Radiology (Routine) - New Request Specialty Diagnoses / Procedures Referred By Contac t Referred To Contact Procedures PACEMAKER/ICD INTERROGATION Julio Cesar Law POLISHING MACHINE OPERATOR HELPER-ASSISTANT MAINTENANCE MANAGER [address] [place] [address] Referral ID Status Reason Start Date Expiration Date V isits Requested Visits Authorized [id number] New Request 07/13/2021 08/07/2022 1 1 Electronically signed by Julio Cesar Law POLISHING MACHINE OPERATOR HELPER-ASSISTANT MAINTENANCE MANAGER at 07/13/2021 10:46 AM EDT * Radiology (Routine) - Pending Review Specialty Diagnoses / Procedures Referred By Contac t Referred To Contact Procedures ECG Coreen Russ MD [address] [place] [address] Referral ID Status Reason Start Date Expiration Date V isits Requested Visits Authorized [id number] Pending Review 07/12/2021 08/06/2022 1 1 * (Routine) - Pending Review Specialty Diagnoses / Procedures Referred By Contac t Referred To Contact Procedures NO PHARMACOLOGICAL DVT PROPHYLAXIS Coreen Russ MD [address] [place] [address] Referral ID Status Reason Start Date Expiration Date V isits Requested Visits Authorized [id number] Pending Review 07/12/2021 08/06/2022 1 1 * (Routine) - Pending Review Specialty Diagnoses / Procedures Referred By Contac t Referred To Contact Procedures DVT/VTE RISK ASSESSMENT Coreen Russ MD [address] [place] [address] Referral ID Status Reason Start Date Expiration Date V isits Requested Visits Authorized [id number] Pending Review 07/12/2021 08/06/2022 1 1 * Radiology (Emergency) - Pending Review Specialty Diagnoses / Procedures Referred By Contac t Referred To Contact Procedures ECG Satinder Buckner MD [address] [place] [address] Referral ID Status Reason Start Date Expiration Date V isits Requested Visits Authorized [id number] Pending Review 07/12/2021 08/06/[address] (narrative)No reason for referral information availableBlParkview Whitley Hospital Services Work Phone: Reason for visit Narrative* Auth/Cert Specialty Diagnoses / Procedures Referred By Contac t Referred To Contact Diagnoses Level 1 stroke possible LVO Referral ID Status Reason Start Date Expiration Date Visits Re quested Visits Authorized [id number] [address] [facility] Chief Complaint and Reason for Visit Chief [...] Anterior communicating artery aneurysm Aphasia Atrial fibrillation [id number] Debility Depression Dysarthria Hypokalemia Left hemiparesis AAA (abdominal aortic aneurysm) without rupture Anemia Central cord syndrome Essential hypertension History of permanent cardiac pacemaker placement Hypertension 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 Neurogenic bladder Neurogenic bowel Neuropathy 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.9) Paraplegia Sick sinus syndrome Anterior communicating artery aneurysm Aphasia Atrial fibrillation [id number] Debility Hypokalemia Left hemiparesis History of permanent [...] fibrillation Sick sinus syndrome Aphasia Atrial fibrillation [id number] Debility Depression Dysarthria 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 Neurogenic bowel Hypokalemia Aphasia Atrial fibrillation [id number] Debility 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 Neurogenic bowel Hypokalemia Aphasia Atrial fibrillation [id number] Chronic anticoagulation Debility Depression Dysarthria Heme + stool [id number] Normochromic normocytic anemia Pressure ulcer Incomplete quadriplegia [...] Pacemaker Sick sinus syndrome Aphasia Atrial fibrillation [id number] Depression Dysarthria 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 Neurogenic bowel Hypokalemia Aphasia Atrial fibrillation [id number] 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 Neurogenic bowel Hypokalemia Aphasia Atrial fibrillation [id number] Chronic anticoagulation Debility Depression Dysarthria Heme + stool [id number] Iron deficiency anemia Normochromic normocytic anemia Pressure [...] Pacemaker Sick sinus syndrome Aphasia Atrial fibrillation [id number] Depression Dysarthria 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 Neurogenic bowel Hypokalemia Aphasia Atrial fibrillation [id number] 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 Neurogenic bowel Hypokalemia Aphasia Atrial fibrillation [id number] Chronic anticoagulation Debility Depression Dysarthria Heme + stool [id number] Iron deficiency anemia Normochromic normocytic anemia Pressure [...] Pacemaker Sick sinus syndrome Aphasia Atrial fibrillation [id number] Depression Dysarthria 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 Neurogenic bowel Hypokalemia Aphasia Atrial fibrillation [id number] 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 Neurogenic bowel Hypokalemia Aphasia Atrial fibrillation [id number] Chronic anticoagulation Debility Depression Dysarthria Heme + stool [id number] Iron deficiency anemia Normochromic normocytic anemia Pressure [...] Will Yes March 29 5:33pm Power of Manager Child Yes March 29, 2019 5:33pm Advance Directive Response Recorded Date/ Time Advance Directives Yes February 3:16pm Living Will Yes July 12, 2021 9:42am Power of Manager Child Yes July 12 9:42am Latest Code Status on File Code Status Date Activated Date Inactivated Comments Full Code 07/16/2021 2:56 PM Full Code 02/19/2015 5:46 PM 04/03/2015 4:31 PM Full Code 02/17/2015 5:02 PM 02/19/2015 5:46 PM Advance Directive Response Recorded Date/ Time Name of Medical Power of Manager Child ZACH AQUINO July 12, 2021 9:42am Advance Directives Yes February 3:16pm Living Will Yes July 18, 2021 12 :44pm Power of Manager Child Yes July 18, 2021 12:44pm Advance Directive Response Recorded Date/ Time Name of Medical Power of Manager Child ZACH AQUINO July 12, 2021 9:42am Name of Medical Power of Manager Child Zach Aquino (s pouse) July 18, 2021 12:44pm Advance Directives Yes February 3:16pm Living Will Yes July 25, 2021 8 :30am Power of Manager Child Yes July 25, 2021 8:30am Advance Directive Response Recorded Date/ Time Name of Medical Power of Manager Child ZACH AQUINO July 12, 2021 9:42am Name of Medical Power of Manager Child Zach Aquino (spouse) July 18, 2021 12:44pm Name of Medical Power of Manager Child zach July 25, 2021 8:30am Name of Medical Power of Manager Child Bulmaro Aquino and Zach Aquino August 17, 2021 5:02pm Name of Medical Power of Manager Child UNABLE TO ANSWER September 07, 2021 10:00am Advance Directives Yes February 3:16pm Living Will Yes September 07, 2021 10:00am Power of Manager Child Yes September 07 10:00am Advance Directive Response Recorded Date/ Time Advance Directives Yes February 2:16pm Living Will Yes September 07, 2021 9:00am Power of Manager Child Yes September 07 9:00am Advance Directive Response Recorded Date/ Time Advance Directives Yes February 3:16pm Living Will No August 25, 2022 2:16pm Power of Manager Child No August 25 2:16pm Advance Directive Response Recorded Date/ Time Advance Directives Yes February 3:16pm Living Will No October 15, 2022 3:54pm Power of Manager Child No October 15 3:54pm Advance Directive Response Recorded Date/ Time Living Will Yes March 28 1:45pm Do you have a Healthcare Power of Manager Child? Yes March 28, 2024 1:45pm Name of Medical Power of Manager Child Bartolo March 28, 2024 1:45pm Advance Directives Yes February 3:16pm Advance Directive Response Recorded Date/ Time Advance Directives Yes February 3:16pm Reason for Referral Specialty Diagnoses / Procedures Referred By Contac t Referred To Contact Procedures PACEMAKER/ICD INTERROGATION Shanika Jose MD [address] [phone] Referral ID Status Reason Start Date Expiration Date V isits Requested Visits Authorized [id number] New Request 07/23/2021 08/17/2022 1 1 Specialty Diagnoses / Procedures Referred By Contac t Referred To Contact Procedures DVT/VTE RISK ASSESSMENT Shanika Jose MD [address] [address] Referral ID Status Reason Start Date Expiration Date V isits Requested Visits Authorized [id number] New Request 07/22/2021 08/16/2022 1 1 Specialty Diagnoses / Procedures Referred By Contac t Referred To Contact Procedures ECG Michael Roblero MD [address] [place] [id number] Referral ID Status Reason Start Date Expiration Date V isits Requested Visits Authorized [id number] New Request 07/22/2021 08/16/2022 1 1 Summary [...] - Provider: Lora Jane RN - Comment: [id number]) senna (SENOKOT) tablet 8.6 mg(Linked Group 2) 8.6 mg, Oral, DAILY EVERY MORNING, First dose on 07/12/21 at 1315, Until Discontinued, Hold if BM in last 2 hours. 075 (Given - Provider: Sondra Delaney RN) 0914 (Given - Provider: Marc Mancilla, PRUDECNIO) 0858 (Given - Provider: Steffi Worrell, PRUDENCIO) [...] Care Teams (unrecognized sec tion and content) Vat Packer Relationship Specialty Start Date End Date Mallory Mcpherson DO [address] [place], [place] [phone] PCP - General Family Medicine 02/17/15 Ignacio Quan MD PCP - Referring 1 Cardiovascular Medicine 02/18/15 Heath Mcdowell MD [address] [place] [address] PCP - Referring 2 Neurological Surgery 02/18/15 Caesar Doshi MD [address] [place] [id number] Urology 04/02/15 Heath Mcdowell [address] [facility] [place] [address] 02/18/15 07/13/21 Vat Packer Relationship Specialty Start Date End Date Mallory Mcpherson DO [address] [facility] [place] [address] PCP - General Family Medicine 02/17/15 Ignacio Quan MD PCP - Referring 1 Cardiovascular Medicine 02/18/15 Heath Mcdowell MD [address], [place] [id number] PCP - Referring 2 Neurological Surgery 02/18/15 Caesar Doshi MD [address] [place] [address] [address] [place], [place] [id number] Urology 04/02/15 Vat Packer Relationship Specialty Start Date End Date Kevin Correia) [facility] [address] [place], [place] [id number] 01/03/02 Team Status: Active Member Role Status Dates Dr. Mallory Mcpherson DO Family Provider Active Dr. Mallory Mcpherson DO Primary Care Provider Active Team Status: Inactive Member Role Status Dates Dr. Mallory Mcpherson DO Primary Care Provider, Referri ng Provider Active Alessandra Melchor STANDARDS ANALYST, STANDARDS ANALYST-C Attending Provider Active Team Status: Inactive Member Role Status Dates Dr. Mallory cMpherson DO Primary Care Provider, Referri ng Provider [...] DO Primary Care Provider Active Alessandra Melchor STANDARDS ANALYST, STANDARDS ANALYST-C Attending Provider, Referring P gurvinder Active Team [...] End: August 08, 2024 Alessandra Melchor NP, STANDARDS ANALYST-C Attending Provider Active Start: August 08, 2024 [...] 2024 End: August 08, 2024 Alessandra Melchor STANDARDS ANALYST, STANDARDS ANALYST-C Attending Provider Active Start: August 08, 2024 [...] Expiration Date Visits Re quested Visits Authorized [id number] 1 1 Reason Comments OT EVAL Specialty Diagnoses / Procedures Referred By Contac t Referred To Contact [facility] Diagnoses Quadriplegia, C5-C7 incomplete Procedures [facility] Mallory Mcpherson DO [address] [place] [id number] [facility] [address] [place] [address] Referral ID Status Reason Start Date Expiration Date V isits Requested Visits Authorized [id number] Authorized 03/15/2021 03/14/2022 99 99 Care Team (unrecognized sect ion and content) Care Team Personnel Name: MALLORY MCPHERSON DO Position: P4 Physician - Primary Care Med Service: Active Provider Member Role: Primary Care Physician Address: Address: [address] [place] [address] Care Team Related Persons Name: ZACH AQUINO Address: Home [address] [place], [place] [phone] [place] (unrecognized sect ion and content) No Status Records FoundNo Status Records FoundNo Status Records FoundNo Status Records FoundNo Status Records Found INFORMATION SOURCE (unrecogn ized section and content) DATE CREATED AUTHOR 02/14/2022 [facility] DATE CREATED AUTHOR AUTHOR'S ORGANIZ ATION 04/10/2022 [facility] DATE CREATED AUTHOR AUTHOR'S ORGANIZ ATION 10/05/2023 [facility] ([place]) DATE CREATED AUTHOR AUTHOR'S ORGANIZ ATION 02/14/2024 [facility] DATE CREATED AUTHOR AUTHOR'S ORGANIZ ATION 11/13/2024 [facility] Source Comments (unrecognize d section and content) In the event this informatio n is protected by the Federal Confidentiality of Alcohol and Drug Abuse Patient Records regulations: The Federal rules restrict any use of the information to criminally investigate or prosecute any alcohol or drug abuse patient.[facility] FOR RECORDS PERTAINING TO PATIENTS WHO [...] BE BASED ON THE PRIMARY CLINICAL RECORDS. [employer] [facility]. provides no warranty or guarantee of the accuracy or completeness of information in this document.
[2024-11-13 21:09] LABS: Magnesium 2.2 mg/dL (1.5-2.2)
[2024-11-13] MEDS: 0.9% Normal Saline (1000mL) 1,000 ML 100 ML IV (22:18)
[2024-11-13] MEDS: APIXABAN 5 MG TABLET PO (22:19)
[2024-11-13] MEDS: Piperacil/Tazobactam 3.375 GM in 0.9% Normal Saline (50mL MB+) 50 ML IV (22:21)
[2024-11-14 03:20] VITALS: BP 141/68; PULSE 70; RESP 18; TEMP 37.3; O2SAT 94
[2024-11-14 05:14] VITALS: BMI 38.9
[2024-11-14] MEDS: Piperacil/Tazobactam 3.375 GM in 0.9% Normal Saline (50mL MB+) 50 ML IV ×3 (05:29→21:30)
[2024-11-14 05:46] LABS: Hematocrit 34.2 % (40-54); Hemoglobin 11.6 g/dL (13.0-16.5); Immature Granulocytes Count 0.030 X10^3/uL (0.0-0.0); Mean Corp Hgb Conc 33.9 g/dL (32-36); Mean Corpuscular Volume 89.1 fL (80-94); Mean Platelet Vol. 11.2 fl (6.2-12.0); NRBC Flagged by Analyzer 0 % (0-5); Platelet Count 125 K/mm3 (150-450); RBC Distribution Width CV 14.3 % (11.6-14.6); RBC Distribution Width SD 46.0 fl (35.1-43.9); Red Blood Count 3.84 M/mm3 (4.6-6.2); White Blood Count 7.9 K/mm3 (4.4-11.0)
[2024-11-14 06:18] LABS: AST(SGOT) 20 U/L (<=37); Alanine Aminotransfer ALT/SGPT 18 U/L (<=46); Albumin, Serum 3.8 g/dL (3.4-4.8); Alkaline Phosphatase 53 U/L (40-129); Anion Gap 10 (5-15); BUN 20 mg/dL (4-19); BUN/Creat Ratio 16.9 RATIO (10-20); Calcium,Total 8.4 mg/dL (7.6-11.0); Carbon Dioxide 21.2 mmol/L (21.0-32.0); Chloride 107 mmol/L (98-108); Estimated Creatinine Clearance 65.29 ml/min (50-250); Globulin 2.9 g/dL (2.2-4.2); Glucose 108 mg/dL (70-99); Potassium 3.9 mmol/L (3.3-5.1)
[2024-11-14 06:35] VITALS: O2SAT 94
[2024-11-14 09:37] VITALS: BP 145/61; PULSE 69; RESP 18; TEMP 36.9; O2SAT 95
[2024-11-14] MEDS: APIXABAN 5 MG TABLET PO ×2 (09:48→21:32)
--- NOTE | 2024-11-14 10:11 | PCM.CONS.GEN ---
Assessment & Plan Assessment/Plan (1) Complicated urinary tract infection: PLAN: Straight cath at home. Fever and wbc improved. Ucx and bcx pending, cont zosyn. Will follow, thank you (2) Acute encephalopathy: (3) Chronic renal insufficiency: (4) Neurogenic bladder: HPI Consult Data Date of Consult: 11/14/24 HPI Narrative Reason for Consultation: uti HPI Narrative: DANNY AQUINO, is a 79 M with incomplete paraplegia with straight cath at home, presented to ED 11/13 with acute onset of fever, confusion, fatigue, not feeling well. No abd pain or back pain. Some nausea and headache. Admitted, on zosyn, feeling better this AM. Full ROS performed and neg except as noted above. 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 Depression Hypertension Atrial fibrillation Anterior communicating artery aneurysm Atrial fibrillation History of DVT (deep vein thrombosis) AAA (abdominal aortic aneurysm) without rupture Sick sinus syndrome Family history of hypertension History of spinal cord injury Paraplegia Premature ventricular contractions BPH (benign prostatic hypertrophy) Depression Cervical spinal stenosis Spinal cord injury Neurogenic bladder Degenerative joint disease (DJD) of lumbar spine Anemia Central cord syndrome Subluxation of C6-C7 cervical vertebrae 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.9) Home Medications ?Medication ?Instructions ?Recorded ?Last Taken ?Type ascorbic acid (vitamin C) 500 mg 1,000 mg PO LUNCH supplement 08/17/21 02/11/24 History tablet tamsulosin 0.4 mg capsule 0.4 mg PO QHS Urine retention 30 09/03/21 02/27/24 21:10 Rx days #30 caps 0.4 mg citalopram 20 mg tablet 20 mg PO QHS depression 12/04/21 02/27/24 21:10 History 20 mg cholecalciferol (vitamin D3) 25 25 mcg PO DAILY supplement 02/12/24 Unknown History mcg (1,000 unit) capsule gabapentin 600 mg tablet 600 mg PO BID nerve pain 02/21/24 02/28/24 09:45 History 600 mg acetaminophen 500 mg tablet 1,000 mg (2 x 500 mg) PO Q6H PRN 04/27/24 Unknown Rx PRN Pain Score 1-10 #0 tabs methenamine hippurate 1 gram tablet 1 g PO BID 30 days #60 tabs 04/27/24 Unknown Rx potassium chloride 20 mEq 20 meq PO BIDCM 30 days #60 tabs 04/27/24 Unknown Rx tablet,extended release(part/cryst) carvedilol 12.5 mg tablet 12.5 mg PO BID BP #180 tabs 08/04/24 Unknown Rx triamterene 37.5 1 tab PO QAM 08/08/24 Unknown History mg-hydrochlorothiazide 25 mg tablet apixaban 5 mg tablet (Eliquis) 5 mg PO BID [facility] 08/30/24 Unknown Rx [facility] tabs amlodipine 5 mg tablet 5 mg PO QDAY this is a decrease in 09/20/24 Unknown Rx dose #90 tabs Allergy/AdvReac Type Severity Reaction Status Date / Time ceftriaxone Allergy Rash Verified 11/13/24 15:53 ciprofloxacin (From Cipro) Allergy Hives Verified 11/13/24 15:53 sulfamethoxazole (From Allergy PT UNSURE Verified 11/13/24 15:53 Bactrim) OF REACTION trimethoprim (From Bactrim) Allergy PT UNSURE Verified 11/13/24 15:53 OF REACTION Family History Mother Breast cancer Cancer Brain cancer Sister Diabetes Hypertension CHF (congestive heart failure) Kidney disease Sister CHF (congestive heart failure) Cardiac defibrillator in situ Other Family history of hypertension Surgical History History of neck surgery History of permanent cardiac pacemaker placement S/P cervical spinal fusion Social History household members: spouse Smoking Status: Never smoker alcohol intake: current alcohol intake frequency: holidays/special occasions only Alcohol type: wine substance use type: does not use caffeine: Yes Type: coffee Number of servings: 1 what type of physical activity do you participate in: other details: Health point frequency: 1-2 times per week duration: 45-60 minutes/day seatbelt use: always do you feel safe at home: Yes Physical Exam Const alert and no apparent distress General Appearance: cooperative HEENT normocephalic and head/scalp atraumatic Eyes PERRL and EOMs intact bilaterally Neck supple and No nodes Resp normal air movement and clear to auscultation bilaterally Cardio regular rate and regular rhythm GI soft to palpation, non-tender and non-distended Extremity General Extremity: Negative for edema Skin no rashes or lesions noted Neuro CN's II-XII intact bilaterally Lab / Micro Data Attestation: I reviewed the patient's lab results. 11/14/24 04:35 11/14/24 04:35 Labs: Laboratory Results - last 24 hr 11/13/24 16:50: Urine Color Yellow, Urine Clarity Sl. Cloudy, Urine pH 6.0, Ur Specific [place] 1.010, Urine Protein 30 H, Urine Glucose (UA) Normal, Urine Ketones Negative, Urine Occult Blood 150 H, Urine Nitrite Positive H, Urine Bilirubin Negative, Urine Urobilinogen Normal, Ur Leukocyte Esterase 500 H, Urine RBC 10-25 SEEN, Urine WBC >100 SEEN, Ur Squamous Epith Cells 0-5 SEEN, Urine Bacteria 1+, Urine Mucus 0 SEEN 11/13/24 17:20: WBC 11.7 H, RBC 3.85 L, Hgb 12.0 L, Hct 34.1 L, MCV 88.6, MCH 31.2, MCHC 35.2, RDW Std Deviation 44.8 H, RDW Coeff of Donna 14.0, Plt Count 145 L, MPV 10.5, Immature Gran % (Auto) 0.400, Neut % (Auto) 83.9 H, Lymph % (Auto) 5.0 L, Orange % (Auto) 9.6, Eos % (Auto) 0.8, Baso % (Auto) 0.3, Absolute Neuts (auto) 9.8 H, Absolute Lymphs (auto) 0.58 L, Nucleated RBC % 0, PT 17.2 H, INR 1.4, APTT 29.0, Sodium 137, Potassium 4.0, Chloride 104, Carbon Dioxide 22.5, Anion Gap 11, BUN 23 H, Creatinine 1.21 H, Estim Creat Clear Calc 65.62, Est GFR (MDRD) Non-Af 61, BUN/Creatinine Ratio 19.3, Glucose 114 H, Lactic Acid 1.7, Calcium 8.8, Phosphorus 1.9 L, Magnesium 2.2, Total Bilirubin 0.92, AST 20, ALT 18, Alkaline Phosphatase 58, Total Protein 7.1, Albumin 4.0, Globulin 3.1, Albumin/Globulin Ratio 1.3 11/14/24 04:35: WBC 7.9, RBC 3.84 L, Hgb 11.6 L, Hct 34.2 L, MCV 89.1, MCH 30.2, MCHC 33.9, RDW Std Deviation 46.0 H, RDW Coeff of Donna 14.3, Plt Count 125 L, MPV 11.2, Immature Gran % (Auto) 0.400, Neut % (Auto) 80.8 H, Lymph % (Auto) 7.8 L, Orange % (Auto) 10.0, Eos % (Auto) 0.5, Baso % (Auto) 0.5, Absolute Neuts (auto) 6.4, Absolute Lymphs (auto) 0.61 L, Nucleated RBC % 0, Sodium 139, Potassium 3.9, Chloride 107, Carbon Dioxide 21.2, Anion Gap 10, BUN 20 H, Creatinine 1.19, Estim Creat Clear Calc 65.29, Est GFR (MDRD) Non-Af 63, BUN/Creatinine Ratio 16.9, Glucose 108 H, Calcium 8.4, Total Bilirubin 1.22, AST 20, ALT 18, Alkaline Phosphatase 53, Total Protein 6.7, Albumin 3.8, Globulin 2.9, Albumin/Globulin Ratio 1.3 Micro: Microbiology 11/13/24 16:50 Urine Catheter - Mejía Urine Culture - 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
--- NOTE | 2024-11-14 12:45 | CASEMGMT ---
PRUDENCIO HERMAN Assessment Face to Face with patient for initial transition planning/care coordination assessment. PRUDENCIO HERMAN introduced self and role at [facility]. Pt is A&Ox1-2 and is resting comfortably in bed and is calm. Pt has a hx of CVA and hx of spinal injury. See H&P. Pt's at bedside and willing to assist. Care providers, pharmacy, and demographics verified. Admitting dx: Complicated UTI, Encephalopathy LACE Strata: 2 PCP: Miguel Carrillo Specialists: Glenda SORTO (Urology) Preferred Pharmacy: [facility] Insurance: [facility] A/B, [facility] Supp Plan N Prescription Benefit: Yes LNOK: Nuzhat (W), Bc (son), Jersey (Son), Bulmaro (Son) Living Arrangements: Pt lives with his in a single story home with a ramp to enter ADLs/IADLs: (Primary caregiver) and family are able to assist with the pt's needs Transportation: Family via W/C van DME: Straight catheter supplies, FWW, Power WC, Hospital bed, power transfer lift HHC/SNF: Reports HH hx with [facility]. SNF Hx at [facility]. Pt has had [facility] in the past for home IV ATBs. Pt has a hx at for OP PT Pt?s goal: TBD Plan: TBD. Anticipate Home with continuation of OP Tx vs SNF. At this time, the pt's states that if the pt requires IV ATBs again at home, she prefers the pt to go to a SNF again. At this time, the pt's declines wanting to review a list of SNF's and states that her FOC is [facility]. Pt's states that she was unable to administer the IV ATBs at home herself and that their son's had to come give the meds. Pt's states that it was overcomplicated. CM to follow ID consult. If pt does not require IV ATBs, pt's states that she feels safe bringing the pt back home with family support and denies the need for HHC. At this time, PT is pending. Pt's denies further questions or concerns at this time. Report given to JEWELRY COATER CM. Mariposa Hernández RN, CM
[2024-11-14 14:50] VITALS: BP 130/70; PULSE 65; RESP 16; TEMP 36.8; O2SAT 95
[2024-11-14] MEDS: 0.9% Saline Lock 10 ML Syringe IV ×2 (14:54→21:30)
--- NOTE | 2024-11-14 16:24 | CHAPLAIN ---
Type of Pastoral Visit _x__ Initial Visit ___ Follow-up Visit ___ On-call Visit ___ General Patient Visit ___ Spiritual Assessment ___ Family Conference ___ Bereavement ___ Rapid Response ___ Code Blue ___ Other (describe below) Pastoral Care Referral From ___ Patient _x__ Family ___ Nurse ___ Physician ___ Panel Lay Up Worker ___ Employee Benefits Coordinator ___ Other (describe below) Sacrament/Intervention _x__ Active listening ___ Anointing ___ Catholic ___ Bereavement ___ Communion ___ Angie exploration ___ _x__ Life review _x__ Prayer ___ Reconciliation ___ Sacrament of Sick _x__ Supportive presence ___ Wedding ___ Other (describe below) Pastoral Comments patient was seen in previous admissions; pt and spouse are together in the room and report on what is happening now; pt was blessed to be out for the spring and most of the summer and therefore got to go to two weddings of grandchildren and enjoy some of his life; pt has goal to have his speech improve but he is thankful that he can walk now; pt and spouse are inviting of ongoing visits and ask for a prayer today
--- NOTE | 2024-11-14 18:44 | PCM.PN.HOSP ---
Reason for Visit Chief Complaint: Confusion, fever, chills. Subjective Subjective Patient was seen and examined today, urine culture is positive for gram-negative lactose machine iii coremaker. Patient's white blood cell count today was normal. Objective Data Objective Data Vital Signs: Vital Signs Temp Pulse Resp BP Pulse Ox O2 Del Method 98.3 F 65 16 130/70 H 95 Room Air 11/14/24 14:50 11/14/24 14:50 11/14/24 14:50 11/14/24 14:50 11/14/24 14:50 11/14/24 15:00 Oxygen Delivery Method Room Air Weight: 119.5 kg Body Mass Index (BMI) 38.9 Intake & Output: Intake and Output for Last 24 Hours 11/12/24 11/13/24 11/14/24 23:59 23:59 23:59 Intake Total 1100 / 1100 2000 / 2000 Output Total 700 / 700 1500 / 1500 Balance 400 / 400 500 / 500 Lab / Micro Data 11/14/24 04:35 11/14/24 04:35 Labs: Laboratory Results - last 24 hr 11/13/24 17:20: Phosphorus 1.9 L, Magnesium 2.2 11/14/24 04:35: WBC 7.9, RBC 3.84 L, Hgb 11.6 L, Hct 34.2 L, MCV 89.1, MCH 30.2, MCHC 33.9, RDW Std Deviation 46.0 H, RDW Coeff of Donna 14.3, Plt Count 125 L, MPV 11.2, Immature Gran % (Auto) 0.400, Neut % (Auto) 80.8 H, Lymph % (Auto) 7.8 L, Collin % (Auto) 10.0, Eos % (Auto) 0.5, Baso % (Auto) 0.5, Absolute Neuts (auto) 6.4, Absolute Lymphs (auto) 0.61 L, Nucleated RBC % 0, Sodium 139, Potassium 3.9, Chloride 107, Carbon Dioxide 21.2, Anion Gap 10, BUN 20 H, Creatinine 1.19, Estim Creat Clear Calc 65.29, Est GFR (MDRD) Non-Af 63, BUN/Creatinine Ratio 16.9, Glucose 108 H, Calcium 8.4, Phosphorus 2.3 L, Total Bilirubin 1.22, AST 20, ALT 18, Alkaline Phosphatase 53, Total Protein 6.7, Albumin 3.8, Globulin 2.9, Albumin/Globulin Ratio 1.3 Micro: Microbiology 11/13/24 16:50 Urine Catheter - Mejía Urine Culture - Preliminary GNR lactose machine iii coremaker Physical Exam Const alert, oriented x3 and no apparent distress General Appearance: cooperative, well kempt and well developed Orientation / Consciousness: awake, oriented to person, oriented to place and oriented to time HEENT normocephalic, head/scalp atraumatic and moist oral mucous membranes Eyes PERRL, EOMs intact bilaterally and conjunctivae normal Neck supple, no JVD and thyroid normal General: trachea midline Resp normal respiratory effort, no retractions, no use of accessory muscles and clear to auscultation bilaterally Auscultation: Negative for rales, rhonchi or wheezes Cardio regular rate, regular rhythm, S1 normal heart sound, S2 normal heart sound, no murmurs, no rub and no gallops GI normal to inspection, nondistended, normoactive bowel sounds, soft to palpation, non-tender and non-distended Extremity Extremity Narrative: Patient has nonpitting edema of his legs Skin no rashes or lesions noted General Skin Exam: no breakdown Neuro oriented x3 and CN's II-XII intact bilaterally Neuro Narrative: Patient's lower extremities are weak, he does have movement in both his left and right arms Sensorium / Orientation: awake and alert Speech: speech normal Psych affect normal Assessment & Plan Assessment/Plan (1) Complicated urinary tract infection: PLAN: Plan 1. Acute cystitis secondary to chronic Mejía catheter use-cultures pending at this time, I have elected to keep the patient on Zosyn at this time, patient's white count is improved today #2 paroxysmal atrial FaBB-patient is on apixaban and rate limiting medication #3 essential hypertension-patient will remain on his present medication #4 incomplete quadriplegia secondary to C5-C6 spinal cord injury-complicates care, management, recovery, and prognosis #5 hypophosphatemia-patient's phosphorus will be rechecked tomorrow Total clinical time spent by myself addressing the patient's medical issues, reviewing all of his data, and collaborating with patient's care team: 35 minutes Charges/Coding Visit Charges Inpatient E&M: [id number] Subs Hosp L2
[2024-11-14 21:25] VITALS: BP 144/71; PULSE 60; RESP 18; TEMP 36.9; O2SAT 95
[2024-11-15 03:20] VITALS: BP 134/69; PULSE 60; RESP 18; TEMP 36.5; O2SAT 94
[2024-11-15 05:08] VITALS: BMI 39.1
[2024-11-15] MEDS: Piperacil/Tazobactam 3.375 GM in 0.9% Normal Saline (50mL MB+) 50 ML IV (05:56)
[2024-11-15 06:01] LABS: Hematocrit 32.0 % (40-54); Hemoglobin 10.9 g/dL (13.0-16.5); Immature Granulocytes Count 0.020 X10^3/uL (0.0-0.0); Mean Corp Hgb Conc 34.1 g/dL (32-36); Mean Corpuscular Volume 88.6 fL (80-94); Mean Platelet Vol. 10.5 fl (6.2-12.0); NRBC Flagged by Analyzer 0 % (0-5); Platelet Count 116 K/mm3 (150-450); RBC Distribution Width CV 14.4 % (11.6-14.6); RBC Distribution Width SD 46.9 fl (35.1-43.9); Red Blood Count 3.61 M/mm3 (4.6-6.2); White Blood Count 5.9 K/mm3 (4.4-11.0)
[2024-11-15 06:40] LABS: Albumin, Serum 3.8 g/dL (3.4-4.8); Anion Gap 11 (5-15); BUN 19 mg/dL (4-19); BUN/Creat Ratio 17.2 RATIO (10-20); Calcium,Total 8.5 mg/dL (7.6-11.0); Carbon Dioxide 20.6 mmol/L (21.0-32.0); Chloride 107 mmol/L (98-108); Estimated Creatinine Clearance 71.46 ml/min (50-250); Glucose 98 mg/dL (70-99); Potassium 3.3 mmol/L (3.3-5.1)
[2024-11-15 06:55] VITALS: O2SAT 95
[2024-11-15 08:50] VITALS: BP 134/76; PULSE 64; RESP 16; TEMP 36.7; O2SAT 98
[2024-11-15] MEDS: APIXABAN 5 MG TABLET PO (08:51)
--- NOTE | 2024-11-15 11:15 | DCINST_ITS ---
Discharge Instructions DC O2, CPAP, BIPAP needs Home O2 Discharge instructions: No Dressing / Incision Discharge Activity: Return to Normal Activity Weight Bearing Status: Weight bearing as tolerated and - Follow Up Care Test Results: Test results from this visit will be discussed in further detail at your follow- up appointment, if applicable. Discharge Plan Admission Admit Date/Time: 11/13/24 19:16 Primary Reason for Your Visit: sepsis Attending Provider: Yovany Yañez Primary Care Provider: Miguel Carrillo Consulting Providers: Sindi Navarro; Tunde Stuart Discharge Orders/Prescriptions Prescriptions: New amoxicillin-pot clavulanate 875-125 mg tablet 1 tab PO BID Qty: 11 0RF Rx Instructions: start the evening of 11/15/24, take with food Continued citalopram 20 mg tablet 20 mg PO QHS triamterene-hydrochlorothiazid 37.5-25 mg tablet 1 tab PO QAM ascorbic acid (vitamin C) 500 mg tablet 1,000 mg PO LUNCH tamsulosin 0.4 mg Capsule 0.4 mg PO QHS 30 Days Qty: 30 0RF acetaminophen 500 mg Tablet 1,000 mg PO Q6H PRN PRN (Reason: Pain Score 1-10) Qty: 0 0RF methenamine hippurate 1 gram Tablet 1 g PO BID 30 Days Qty: 60 0RF potassium chloride 20 mEq Tablet,Er Particles/Crystals 20 meq PO BIDCM 30 Days Qty: 60 0RF cholecalciferol (vitamin D3) 25 mcg (1,000 unit) capsule 25 mcg PO DAILY gabapentin 600 mg tablet 600 mg PO BID carvedilol 12.5 mg tablet 12.5 mg PO BID Qty: 180 3RF Eliquis 5 mg tablet 5 mg PO BID Qty: 180 3RF Rx Instructions: Patient phone [phone] or [phone] amlodipine 5 mg tablet 5 mg PO QDAY Qty: 90 3RF Referrals / Follow Up: Miguel Carrillo DO [Primary Care Provider] - Within 2 Weeks Disposition Disposition (needs filled in before D/C Order can be placed): Home, Self Care
--- NOTE | 2024-11-15 11:43 | DS.PCM_ITS ---
Providers Date of Admission: 11/13/24 Date of Discharge: 11/15/24 Primary Care Physician: Dr. Miguel Carrillo, Consultations 11/13/24 21:38 Consult: Infectious Disease Routine Consulting Provider: Tunde Stuart Reason for Consult: Complicated UTI, MDRO EMERGENT Consult: No MD Notified: Yes Date Notified: 11/14/24 Time Notified: 06:50 Method of Notification: Text Reason For Visit: COMPLICATED UTI, ENCEPHALOPATHY Diagnosis Discharge Diagnosis (1) Complicated urinary tract infection: Status: Acute Code(s): N39.0 - Urinary tract infection, site not specified Plan 1. Acute cystitis secondary to chronic Mejía catheter use-cultures pending at this time, I have elected to keep the patient on Zosyn at this time, patient's white count is improved today #2 paroxysmal atrial FaBB-patient is on apixaban and rate limiting medication #3 essential hypertension-patient will remain on his present medication #4 incomplete quadriplegia secondary to C5-C6 spinal cord injury-complicates care, management, recovery, and prognosis #5 hypophosphatemia-patient's phosphorus will be rechecked tomorrow Total clinical time spent by myself addressing the patient's medical issues, reviewing all of his data, and collaborating with patient's care team: 35 minutes Medications at Discharge Home Medications ascorbic acid (vitamin C) 500 mg tablet 1,000 mg PO LUNCH supplement 08/17/21 tamsulosin 0.4 mg capsule 0.4 mg PO QHS Urine retention 30 days #30 caps 09/03/21 citalopram 20 mg tablet 20 mg PO QHS depression 12/04/21 cholecalciferol (vitamin D3) 25 mcg (1,000 unit) capsule 25 mcg PO DAILY supplement 02/12/24 gabapentin 600 mg tablet 600 mg PO BID nerve pain 02/21/24 acetaminophen 500 mg tablet 1,000 mg (2 x 500 mg) PO Q6H PRN PRN Pain Score 1-10 #0 tabs 04/27/24 methenamine hippurate 1 gram tablet 1 g PO BID infection 30 days #60 tabs 04/27/24 potassium chloride 20 mEq tablet,extended release(part/cryst) 20 meq PO BIDCM supplement 30 days #60 tabs 04/27/24 carvedilol 12.5 mg tablet 12.5 mg PO BID BP #180 tabs 08/04/24 triamterene 37.5 mg-hydrochlorothiazide 25 mg tablet 1 tab PO QAM blood pressure 08/08/24 apixaban 5 mg tablet (Eliquis) 5 mg PO BID blood thinner #180 tabs 08/30/24 amlodipine 5 mg tablet 5 mg PO QDAY blood pressure #90 tabs 09/20/24 amoxicillin 875 mg-potassium clavulanate 125 mg tablet 1 tab PO BID #11 tabs 11/15/24 Hospital Course Operations None Procedures None Summary of Care Provided Minutes Spent on Discharge: 31 Hospital Course: 79-year-old white male was seen in the emergency room at [facility] with a chief complaint of fever, patient has a chronic suprapubic catheter and has had past history of urinary tract infections and he was concerned he was developing 1 and came to the emergency room for evaluation. Workup in the emergency room showed his temperature to be 102.1, white blood cell count was elevated at 11.7 and hemoglobin was 12. Chemistry profile revealed a creatinine of 1.21, BUN of 23, and a glucose of 114. Patient's urinalysis showed over 100 white cells and +1 bacteria. Patient was admitted for sepsis from urinary tract infection, he was placed on IV antibiotics and labs were monitored. Patient's white blood cell improved during his hospitalization, patient's urine culture grew out Proteus, blood culture did not grow out any organism. On 11/15/2024, patient was seen and examined:alert, oriented x3 and no apparent distress General Appearance: cooperative, well kempt and well developed Orientation / Consciousness: awake, oriented to person, oriented to place and oriented to time HEENT normocephalic, head/scalp atraumatic and moist oral mucous membranes Eyes PERRL, EOMs intact bilaterally and conjunctivae normal Neck supple, no JVD and thyroid normal General: trachea midline Resp normal respiratory effort, no retractions, no use of accessory muscles and clear to auscultation bilaterally Auscultation: Negative for rales, rhonchi or wheezes Cardio regular rate, regular rhythm, S1 normal heart sound, S2 normal heart sound, no murmurs, no rub and no gallops GI normal to inspection, nondistended, normoactive bowel sounds, soft to palpation, non-tender and non-distended Extremity Extremity Narrative: Patient has nonpitting edema of his legs Skin no rashes or lesions noted General Skin Exam: no breakdown Neuro oriented x3 and CN's II-XII intact bilaterally Neuro Narrative: Patient's lower extremities are weak, he does have movement in both his left and right arms Sensorium / Orientation: awake and alert Speech: speech normal Psych affect normal On 11/15/2024, patient was seen and examined felt to be in stable condition for discharge home. Weight / BMI Weight Weight: 120.1 kg Body Mass Index (BMI) 39.1 ABG / Lab / Microbiology Data 11/15/24 04:53 11/15/24 04:53 Laboratory: Laboratory Results - last 24 hr 11/15/24 04:53: WBC 5.9, RBC 3.61 L, Hgb 10.9 L, Hct 32.0 L, MCV 88.6, MCH 30.2, MCHC 34.1, RDW Std Deviation 46.9 H, RDW Coeff of Donna 14.4, Plt Count 116 L, MPV 10.5, Immature Gran % (Auto) 0.300, Neut % (Auto) 67.7, Lymph % (Auto) 13.8 L, M mya % (Auto) 13.8 H, Eos % (Auto) 3.7, Baso % (Auto) 0.7, Absolute Neuts (auto) 4.0, Absolute Lymphs (auto) 0.81 L, Nucleated RBC % 0, Sodium 139, Potassium 3.3, Chloride 107, Carbon Dioxide 20.6 L, Anion Gap 11, BUN 19, Creatinine 1.09, Estim Creat Clear Calc 71.46, Est GFR (MDRD) Non-Af 69, BUN/Creatinine Ratio 17.2, Glucose 98, Calcium 8.5, Phosphorus 2.3 L, Albumin 3.8 Microbiology: Microbiology 11/13/24 17:20 Blood Culture (Wb) - Anticubital Left Blood Culture - Preliminary No growth in 48 hours. 11/13/24 17:20 Blood Culture (Wb) - Anticubital Right Blood Culture - Preliminary No growth in 48 hours. 11/13/24 16:50 Urine Catheter - Mejía Urine Culture - Final Escherichia coli D/C Instructions Weight Bearing Status: Weight bearing as tolerated and - DC O2, CPAP, BIPAP Needs Home O2 Discharge instructions: No Meaningful Use Info Meaningful Use Meaningful Use Diagnoses (Choose all that apply): None applicable Discharge Plan Admission Admit Date/Time: 11/13/24 19:16 Primary Reason for Your Visit: sepsis Attending Provider: Yovany Yañez Primary Care Provider: Miguel Carrillo Consulting Providers: Sindi Navarro; Tunde Stuart Discharge Orders/Prescriptions Prescriptions: New amoxicillin-pot clavulanate 875-125 mg tablet 1 tab PO BID Qty: 11 0RF Rx Instructions: start the evening of 11/15/24, take with food Continued citalopram 20 mg tablet 20 mg PO QHS triamterene-hydrochlorothiazid 37.5-25 mg tablet 1 tab PO QAM ascorbic acid (vitamin C) 500 mg tablet 1,000 mg PO LUNCH tamsulosin 0.4 mg Capsule 0.4 mg PO QHS 30 Days Qty: 30 0RF acetaminophen 500 mg Tablet 1,000 mg PO Q6H PRN PRN (Reason: Pain Score 1-10) Qty: 0 0RF methenamine hippurate 1 gram Tablet 1 g PO BID 30 Days Qty: 60 0RF potassium chloride 20 mEq Tablet,Er Particles/Crystals 20 meq PO BIDCM 30 Days Qty: 60 0RF cholecalciferol (vitamin D3) 25 mcg (1,000 unit) capsule 25 mcg PO DAILY gabapentin 600 mg tablet 600 mg PO BID carvedilol 12.5 mg tablet 12.5 mg PO BID Qty: 180 3RF Eliquis 5 mg tablet 5 mg PO BID Qty: 180 3RF Rx Instructions: Patient phone [phone] or [phone] amlodipine 5 mg tablet 5 mg PO QDAY Qty: 90 3RF Referrals / Follow Up: Miguel Carrillo DO [Primary Care Provider] - 11/27/24 1:00 pm (Appointment with Dr. Carrillo at the [place] Office Location) Disposition Disposition (needs filled in before D/C Order can be placed): Home, Self Care Charges/Coding Visit Charges Inpatient E&M: 81601 Disch Hosp >30min
[2024-11-15] MEDS: Na Biphos/Potassium Phosphate PACKET 1 PACKET PO (11:58)
[2024-11-15 12:03] VITALS: BP 139/69; PULSE 66; RESP 18; TEMP 36.2; O2SAT 97
--- NOTE | 2024-11-15 13:48 | PCM.PN.ID ---
Physical Exam Narrative Feeling much better, no fever, no abd pain Const alert and no apparent distress General Appearance: cooperative Resp normal air movement and clear to auscultation bilaterally Cardio regular rate and regular rhythm GI soft to palpation, non-tender and non-distended ID ID: Route of nutrition/ use of supplements: [] Nutritional Intake: [] IV Site: [] Mejía Catheter: [] Assessment & Plan Assessment/Plan (1) Complicated urinary tract infection: PLAN: Straight cath at home. Fever and wbc improved. Ucx with ecoermelinda ok for home with short course po abx, d/w primary team. Will follow prn (2) Acute encephalopathy: (3) Chronic renal insufficiency: (4) Neurogenic bladder:
--- NOTE | 2024-11-15 14:03 | CASEMGMT ---
Patient has order for discharge. RN CM in to discuss discharge with patient and . Patient discharging on oral antibiotics. Patient and state patient will discharge home wtih resumption of outpatient therapy at [facility]. states son will be providing transport with their wheelchair van and bring patient's electric wheelchair for at discharge. Patient and had no further questions or concerns.
--- NOTE | 2024-11-15 15:00 | PHA.DC_ITS ---
Pharmacy [facility] has performed discharge medication reconciliation and counseling for this patient. 1. AUGMENTIN 875/125MG PO BIDCM X 11 DOSES The patient's discharge medication list was reviewed for discrepancies and discrepancies were resolved. The patient was counseled on the following discharge medications and changes in medications for homegoing were reviewed. The Reason for Use, instructions for use, and potential side effects were reviewed for all new medications. The patient's questions regarding all of their medications were answered. The patient was able to verbally demonstrate an understanding of their discharge medications. Medications at Discharge Home Medications ascorbic acid (vitamin C) 500 mg tablet 1,000 mg PO LUNCH supplement 08/17/21 tamsulosin 0.4 mg capsule 0.4 mg PO QHS Urine retention 30 days #30 caps 09/03/21 citalopram 20 mg tablet 20 mg PO QHS depression 12/04/21 cholecalciferol (vitamin D3) 25 mcg (1,000 unit) capsule 25 mcg PO DAILY supplement 02/12/24 gabapentin 600 mg tablet 600 mg PO BID nerve pain 02/21/24 acetaminophen 500 mg tablet 1,000 mg (2 x 500 mg) PO Q6H PRN PRN Pain Score 1-10 #0 tabs 04/27/24 methenamine hippurate 1 gram tablet 1 g PO BID infection 30 days #60 tabs 04/27/24 potassium chloride 20 mEq tablet,extended release(part/cryst) 20 meq PO BIDCM supplement 30 days #60 tabs 04/27/24 carvedilol 12.5 mg tablet 12.5 mg PO BID BP #180 tabs 08/04/24 triamterene 37.5 mg-hydrochlorothiazide 25 mg tablet 1 tab PO QAM blood pressure 08/08/24 apixaban 5 mg tablet (Eliquis) 5 mg PO BID blood thinner #180 tabs 08/30/24 amlodipine 5 mg tablet 5 mg PO QDAY blood pressure #90 tabs 09/20/24 amoxicillin 875 mg-potassium clavulanate 125 mg tablet 1 tab PO BID #11 tabs 11/15/24
[2024-11-15 15:35] VITALS: BP 137/73; PULSE 64; RESP 18; TEMP 36.1; O2SAT 97
== END 2024-11-15 16:21 | disposition home or self-care (01) | DRG 698 ==
LOC: ED 19:22 → PCU 21:01
PROVIDERS: Admitting Provider Family Medicine; Emergency Provider Emergency Medicine; PCP Family Medicine; Visit Provider Internal Medicine
DX: T83.511A Infection and inflammatory reaction due to indwelling urethral catheter, initial encounter (principal); A41.51 Sepsis due to Escherichia coli [E. coli]; G93.41 Metabolic encephalopathy; G82.54 Quadriplegia, C5-C7 incomplete; N30.00 Acute cystitis without hematuria; N13.8 Other obstructive and reflux uropathy; E86.0 Dehydration; I12.9 Hypertensive chronic kidney disease with stage 1 through stage 4 chronic kidney disease, or unspecified chronic kidney disease; F32.A Depression, unspecified; I69.920 Aphasia following unspecified cerebrovascular disease; I49.5 Sick sinus syndrome; E83.39 Other disorders of phosphorus metabolism; N18.2 Chronic kidney disease, stage 2 (mild); E78.5 Hyperlipidemia, unspecified; S14.156S Other incomplete lesion at C6 level of cervical spinal cord, sequela; I48.0 Paroxysmal atrial fibrillation; F41.9 Anxiety disorder, unspecified; R33.8 Other retention of urine; X58.XXXS Exposure to other specified factors, sequela; Z88.1 Allergy status to other antibiotic agents; N40.1 Benign prostatic hyperplasia with lower urinary tract symptoms; Y73.8 Miscellaneous gastroenterology and urology devices associated with adverse incidents, not elsewhere classified; N31.9 Neuromuscular dysfunction of bladder, unspecified; Z95.0 Presence of cardiac pacemaker; Z79.899 Other long term (current) drug therapy; Z79.2 Long term (current) use of antibiotics; Z79.01 Long term (current) use of anticoagulants; Z86.718 Personal history of other venous thrombosis and embolism
CPT/HCPCS: 36415; 80053; 80069; 81001; 83605; 83735; 84100; 85025; 85610; 85730; 87040; 87077; 87086; 87088; 87186; 93005; 97162; 97166; 99285; J2185; A4216

== ENCOUNTER 2024-12-27 17:00 | Outpatient (RCR) | payer MEDICARE, OTHER, SELFPAY ==
--- NOTE | 2024-05-17 17:12 | HP.OTEVAL_ITS ---
Patient's Visit Information Visit Information Visit Information: DANNY AQUINO is a 78 year old M, referred to Occupational Therapy by Dr. Luis Carlos Gallardo MD, with a diagnosis of debility, bacteremia, recurrent UTI, spinal cord injury. Date of Evaluation: 05/17/24 Occupational Therapist: April Matias Subjective Subjective: This 78 year old male arrives with dx of debility, bacteremia, recurrent UTI with hx of spinal cord injury C5-7. Pt initially to hospital starting Feb 27 and stayed on TCU for 10 weeks. Pt reports his largest concern is debility feeling weak. pt would like to establish a exercise program he can follow on his own using the gym equipment with the help of a family member. pt states he is still able to perform majority of daily tasks however these tasks have gotten much harder for him. Pt is R hand dominant. Pt uses a motorized wheelchair as main means of mobility at this time. Objective Objective/Observation: pt arrives using motorized wheelchair to get to OT section. pt sits in chair with lateral lean to the L side. pt B hands slightly swollen R more so than L. ROM Shoulder: wfl Elbow: wfl Forearm: wfl Wrist: wfl CMC: wfl MP: wfl IP: wfl Radial Abduction: wfl Palmar Abduction: wfl Opposition: wfl MP: wfl PIP: wfl DIP: wfl Strength Shoulder: L shoulder flexion: 13# R shoulder flexion: 15.6# Elbow: L bicep: 13.1# R bicep:20# L tricep: 16.6# R tricep: 22.8# Concrete Tile Machine Operator: L and R 60# Lateral Pinch: L and R 8# Tripod Pinch: L and R 5# Strength Comments: L ER: 19# R ER: 20# Edema Proximal Phalanx: L 22 cm FR 23 cm Sensation Sensation Comments: R hand 3.61 and L hand 3.22 all digits indicating diminished light touch pt reports numbness has been getting worse recently however started after his spinal cord injury Nine Hole Peg Comments: pt denies issue with coordination Quick DASH-Disab of Arm,Shoulder& Hand Quick DASH Score: 29.5450 Goals Goal:: pt will improve B shoulder strength by 5# or more in order to maximize I in day to day functional tasks pt will improve B bicep strength by 5# or more in order to maximize I in day to day functional tasks pt will improve B tricep strength by 5# or more in order to maximize I in day to day functional tasks pt will improve B malt house supervisor strength by 5# or more in order to maximize I in day to day functional tasks pt will improve postural muscle strength such as traps, serratus and core as evident by ability to sit straight up in wheelchair for 1+ hour duration Goal:: pt will decrease R hand swelling by 1 cm (currently 23 cm) in order to decrease swelling and improve functional use of BUEs Goal:: pt will improve quick dash score by 5 points or more (29.54) in order to improve functional use of BUEs Goal:: Pt/Caregiver will demonstrate 100% accuracy in UB strengthening/ aerobic capacity program by discharge Rehabilitation General Assessment: This 78 year old male referred to OT with dx of debility, bacteremia, recurrent UTI and spinal cord injury. Pt demonstrates decreased UB strength and overall aerobic capacity impacting performance in day to day functional tasks. pt would benefit from OT services 1x a week for 6 weeks. Rehabilitation Potential: Good Anticipated Interventions Anticipated Interventions: Strengthening, Joint Protection/Energy Conservation, Education re Diagnosis, Caregiver Training and Home Program Visit Plan Frequency: 1x/Week Duration: 6 Weeks General Plan: customized gym program to meet pt needs TEXT: Thank you for the opportunity to evaluate your patient. For Medicare and Medicare HMO plans, please review the plan of care and approve it. It will need to be FAXED BACK to us at [phone] for Medicare purposes. Please let me know if there are questions or concerns regarding this plan of care. Physician Signature: Date:
--- NOTE | 2024-05-25 08:57 | HP.PTEVAL ---
Patient's Visit Information Visit Information Visit Information: DANNY AQUINO is a 78 year old M referred to Physical Therapy by Dr. Luis Carlos Gallardo MD with a diagnosis of debility, bacteremia, recurrent UTI and history of spinal cord injury. Date of Evaluation: 05/15/24 Physical Therapist: Srinivasan Gonsales DPT Visit Plan Frequency: 2x /Week Duration: 6 Weeks Plan: 1) BLE strengthening, focus on quads, glutes, anterior tib. Pt. has limited hip flexion (may need to do PNF patterns in supine, this may not progress due to previous spinal cord injury.) 2) sit to stand and stand pivot transfers with FWW 3) static and dynamic balance allowing for increased stability with gait and txs 4) gait progression with FWW, work on foot clearance, upright posture. and endurance. Subjective Subjective: Pt. is here today for his initial evaluation with diagnosis of debility, bacteremia, recurrent UTI and history of spinal cord injury. Pt. has a history of incomplete spinal cord injury many years ago, more recently in the past few years he had a CVA. He again most recently had and infection causing him to be on the hospital TCU for 10 weeks. Pt. is now back home. He has help at home from spouse and children. He reports overall doing okay, but still has a lot of trouble with getting up of chair, walking, getting up out of bed. Pt. reports that he is feeling much better. Pt. is hopeful to increase his strength in order to get back to all household activities without limitations. Objective Objective: POSTURE: Pt. has general flexed posture, heavy use of AD in stance. PALPATION: Pt. has no pain with palpation of BLEs. NEURO: Pt. has decreased sensation in BLEs. Pt. has decreased achilles DTR and patellar DTR 1+ in each. Pt. is not able to rise on heels or toes due to weakness. ROM: pt. has tightness throughout BL ankles, knees and hips. Pt. has tightness in B HS as well. LImited trunk extension. MMT: Pt. has marked weakness in B ankle DF and PF 4/5 bilateral; knee: ext 4/5 on R and 4/5 on L. Hip: 2+/5 bilaterally flexion, 3/5 hip extension GAIT: Pt. ambulates with FWW. He has heavy use of FWW. Pt. has limited B foot clearance, L worse than R. Pt. has limited hip flexion during swing, but uses trunk to advance. He has marked trunk extension to assist with foot clearance. Pt. was able to ambulate 72 feet with CGA prior to needing to sit down. Patient limited by fatigue sit to stand transfers: Pt. has heavy use of B UEs. pt. has difficulty with balance while moving hands from WC to AD. Assistance required during this phase. 30 sec sit to stand from elevated table: at 30inch height x5 with CGA. Pt. requires assistance to wt. shift fwrd. bed mobility: pt. requires min/mod A for LEs to get in/out of bed. mod A for trunk to get out of bed. Pt. has been using motorized wc for most mobility. His prior level of function was motorized wc with some household walking with FWW, upto ~250'. Pt. does have expressive aphasia as well after his CVA. Balance/Special Test Scores Lower Extremity Functional Score: 8 Goals Goal 1:: LTG: Pt. to be I with HEP. Goal Time Frame: 4-6 Weeks Goal 2:: STG: Pt. to be able to complete sit to stand transfers with FWW with SOTERO without LOB Goal Time Frame: 2-4 Weeks Goal 3:: STG: Pt. to complete all bed mobility Sotero with use of railings. Goal Time Frame: 2-4 Weeks Goal 4:: LTG: Pt. to be able to ambulate 250' with FWW SOTERO with FWW allowing for safe mobility in gym and community. Goal Time Frame: 6-8 Weeks Goal 5:: LTG: Pt. to ambulate with FWW for 100' with FWW with good foot clearance allowing for increased functional mobility. Goal Time Frame: 4-6 Weeks Rehabilitation Potential Physical Therapy Diagnosis: Pt. has signs and symptoms consistent with debility after recurrent UTI. Pt. has a history of CVA and incomplete spinal cord injury. Pt. has marked weakness in BLEs/core, limited ability to complete txs and with gait. Pt. would benefit from PT to address the above limitations progressing household mobility and community mobility. I would like him to be Sotero with transfers and bed mobility as well. Rehabilitation Potential: Good Anticipated Interventions Patient/Client Instruction: Educate patient on: Condition, Plan of Care, Risk Factors and Benefits of Fitness Program For the Purpose of:: To foster healthy habits, To improve decision making, To facilitate caregiver knowledge, To improve self management, To prevent re-injury and To improve ability to perform tasks related to life management Therapeutic Exercise to Include: Strength training, Power training, Endurance training, Balance training, Body mechanics, Postural training, Flexibilty training, Gait and locomotor training, Passive ROM and Active ROM For the Purpose of:: To increase ROM, To improve nutrient delivery to tissue, To increase oxygenation perfusion, To improve muscle performance and motor function, To improve ability to perform ADL's, To increase tolerance to activity/condition/position, To improve performance and independence with ADL's, To decrease level of supervision to perform tasks, To improve ability of physical actions for home/community/work/leisure, To improve gait and locomotor functions, To improve health of tissue, To decrease soft tissue restriction and To increase flexibility/ROM Text: Thank you for the opportunity to evaluate your patient. For Medicare and Medicare HMO plans, please review the plan of care and approve it. It will need to be FAXED BACK to us at [phone] for Medicare purposes. For Medicare only, by signing this I certify the plan of care. Please let me know if there are questions or concerns regarding this plan of care. Physician Signature: Date:
--- NOTE | 2024-06-15 09:20 | HP.SP.EV_ITS ---
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 He was accompanied to the evaluation with his , Nuzhat, who help supplement history when Danny had difficulty with communicating. Danny has participated in speech therapy to target his receptive and expressive aphasia in the past and was recently treated at this facility. He was d/c in February of 2024 when he was admitted to the hospital. 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 He participated in speech therapy at this facility from June 2021 through February 2024. In February, discharge from services was being discussed due to plateau in progress. While on TCU for this recent admission (February 2024-May 2024), Pt trialed a high tech AAC device. He would like to continue with speech therapy to continue with an application for the device, practice using it, along with targeting receptive/expressive language d/t recent change in medical status. Smoking Status: Never smoker Diagnosis Diagnosis: Global Aphasia Pain Is pain an issue with your current prescribed condition?: No Personal Preferred language: Telugu Patient Allergies Allergies Allergies: Allergies ceftriaxone Allergy (Verified 03/23/24 13:06) Rash ciprofloxacin (From Cipro) Allergy (Verified 03/23/24 13:06) Hives sulfamethoxazole (From Bactrim) Allergy (Verified 03/23/24 13:06) PT UNSURE OF REACTION trimethoprim (From Bactrim) Allergy (Verified 03/23/24 13:06) PT UNSURE OF REACTION (QAB) - Quick Aphasia Battery QAB QAB Administered: Yes Score: The Quick Aphasia Battery (QAB) is a multidimensional assessment that utilizes eight subtests that explore a variety of language domains, complexity levels, and quantifies strengths/weaknesses in those core language skills. The assessment describes language deficits characteristic of receptive and expressive aphasias. The test assesses the patient's skills in verbal expression, repetition, auditory comprehension, and fluency. The severity rating for the QAB is as follows: 0.00-4.99 Severe; 5.00-7.49 Moderate; 7.50-8.89 Mild; 8.90-10.00 WNL. Date: 06/13/24 Word comprehension Score: 10.00 Sentence comprehension Score: 0 Word finding Score: 5.00 Grammatical construction Score: 7.13 Speech motor programming Score: 7.50 Repetition Score: 2.92 Reading Score: 9.17 QAB Overall Score Score: 5.53 QAB Subtest Analysis Comment: - During connected conversational speech tasks, Pt having difficulty with thought organization to explain how he met his . He benefited from specific WH questions to help orient his thoughts. Even so, his responses were shorter, between 5-7 words. He appeared to benefit from a stimulus card picture being presented to describe what was happening in the picture (only one action, not a scene). - During sentence comprehension tasks, Danny was tasked to respond yes/no to questions. 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 - During the repetition task, Pt was asked to repeat the word the ST presented. On CVC words, he did well with repetition, however when the word was a 3+ syllable word, Pt reporting he was not even able to attempt to repeat d/t difficulty. When phrases were presented, he had coarticulation errors (e.g., The sun [place] the [place] vs. The sun rises in the [place]) along with repeating only the second half of the phrase (e.g., where we are going vs. The ambitious analysis internship discovered where we'd be going). - He has strengths in picture naming, reading words and sentences out loud (did not test comprehension), word comprehension (i.e., was shown a group of pictures and asked to show me the...), following basic 1 step commands, and being oriented. Reference: Neuro-QoL instrument HDQLIFE - Speech Difficulties In the past 7 days. It was difficult for other people to understand me.: Sometimes Is was difficult to speak clearly?: Often In the past 7 days.. How often did you limit your social activites because you had difficulty speaking?: Sometimes In the past 7 days... I had trouble speaking.: Quite a bit I was frustrated by my speech difficulties.: Very much How much DIFFICULTY do you have... ...saying what you want to say?: A lot of difficulty Score HDQLIFE Speech Difficulties Raw Score: 23 HDQLIFE Speech Difficulties T - Score: 62 Radiation Oncology Patient Plan Plan Plan: Will recommend Pt for weekly outpatient speech therapy intervention address moderate global aphasia deficits. Pt would benefit from circumlocution training, training with a high tech AAC device, comprehension of moderately complex yes/no questions, repetition, and picture scene description. Without skilled intervention Pt is at risk for communicating basic, medical, emergent, social wants & needs, and interacting with family/friends at home, during social interactions, and at work. Recommendations Treatment Warranted: Yes Treatment Warranted: Receptive/ Expressive Language Progress Prognosis: Good Frequency Frequency: 1x/Week Additional (Frequency): 60 min. sessions Duration: 6 Months Patient/Family Goal Patient/Family Goal: Working on overall verbal fluency and understanding of moderately complex questions/statements Goals that are Established Determination:: Goals will be added/modified as deemed necessary and appropriate. Therapy will be discontinued when results of re-evaluation indicate therapy is no longer needed or lack of progress has been documented. Goal #1-5 Goal #1: Danny will answer complex y/n questions with 65% acc given min verbal and logical cues across 3 measured sessions. Goal #2: Danny will describe visual scenes using 3 or more sentences given only min verbal and phonemic cues. Goal #3: Danny will repeat 3-4 syllable words/phrases after verbal presentation of the target with 70% acc given min verbal cues. Goal #4: Danny will generate 3 sentences when given a target verb following WHO+verb+WHAT structure with 70% acc given min verbal and semantic cues across 3 consecutively measured sessions. Goal #5: When provided with access to a communication device, Danny will independently utilize their device to supplement verbal communication via commenting, making exclamations, asking questions, making requests, and/or answering questions 10x times during a 60-minute speech therapy session across during 3 sessions. Education Patient has Indicated that the Following Identified Educational Needs: None The Patient has indicated that they have no educational or learning abilities that may effect their care.: Yes Patient Instruction Patient Education: Diagnosis, Treatment Plan and Goals Person Taught: Patient and Family Teaching Method: Discussion and Demonstration Response to teaching: Return Demonstration and Verbalize Understanding
--- NOTE | 2024-07-10 17:48 | OTREVAL_ITS ---
Re-Evaluation Intro: Dr. Luis Carlos Gallardo MD, It has been my pleasure to treat DANNY AQUINO over the last 6 visits for debility, bacteremia, recurrent UTI, spinal cord injury. Please see the progress note below for an update on the occupational therapy plan of care! 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 Plan Plan Frequency: 1x/Week Duration: 6 Weeks Visits in this POC: (Insurance $[id number]) 6 weeks (1x week) Plan: CONT. POC 4 weeks (1x week) Goals Goals Patient Goals: Regain Strength, Use Hand/Wrist/Arm Normally Again and Resume Former Household Responsibilities (Cooking,Cleaning,Yard, etc.) Goal:: pt will improve B shoulder strength by 5# or more in order to maximize I in day to day functional tasks ( progressing) pt will improve B bicep strength by 5# or more in order to maximize I in day to day functional tasks pt will improve B tricep strength by 5# or more in order to maximize I in day to day functional tasks pt will improve B tapering machine operator strength by 5# or more in order to maximize I in day to day functional tasks ( progressing) pt will improve postural muscle strength such as traps, serratus and core as evident by ability to sit straight up in wheelchair for 1+ hour duration ( progressing) Goal:: pt will decrease R hand swelling by 1 cm (currently 23 cm) in order to decrease swelling and improve functional use of BUEs 22cm (goal met) Goal:: pt will improve quick dash score by 5 points or more (29.54) in order to improve functional use of BUEs Goal:: Pt/Caregiver will demonstrate 100% accuracy in UB strengthening/ aerobic capacity program by discharge Anticipated Interventions Anticipated Interventions Anticipated Interventions: Strengthening, Joint Protection/Energy Conservation, Education re Diagnosis, Caregiver Training and Home Program Re-Evaluation Ending Re-evaluation ending: Please do not hesitate to contact me at [phone] by phone or if you have questions or concerns regarding this new plan of care! Sincerely, Lulu Chappell OTR/L, CHT
--- NOTE | 2024-07-26 18:03 | HP.PTREVAL_ITS ---
Re-Evaluation Intro: Dr. Luis Carlos Gallardo MD, It has been my pleasure to treat DANNY AQUINO over the last 8 visits for debility, bacteremia, recurrent UTI and history of spinal cord injury. Please see the progress note below for an update on the physical therapy plan of care! Subjective Subjective: Pt. arrives today with reports of feeling very tired. Pt. reports having shingles for a few weeks now and has not been able to do much during this time. He reports continued fatigue. I talked with his son as well. He has been having increased trouble with transfer and has not been walking much at all at home. Pt. reports no pain currently. Objective Objective/Function: MMT: L knee: ext 44.6#, flexion 16.1# RLE: knee: 35.5#, flexion 15.4# Pt. is able to complete DF and PF, but has marked L ankle DF weakness compared to R side. No pain noted. Pt has very weak bilateral hip flexion 3-/5 on R side and 2/5 on L side. abd and add 3+/5 bilaterally. 30 sec sit to stand rep test: from higher surface (23) 7 with heavy use of UEs and RACHEL to start TU:03sec with FWW and heavy use of AD. Pt. is just getting over having shingles and is very tired. He had much more trouble with transfers today. We had to complete sit to stand from much higher surface to complete. GAIT: Pt. was able to ambulate 72' with FWW with CGA. He has much difficulty with advancing his LEs and tends to shuffle his feet more than lift. He didn't catch his foot, but had limited foot clearance. Patients goals were not progress and is some he has regressed, but I believe this is due to have shingles recently.. I will continue to work on s trengthening, balance and endurance to reach the current goals. Plan Plan Plan: I would suggest continuing with PT. Working on strength, transfer training and gait progression in order to increase functional mobility. Balance/Gait/Functional tests Balance/Special Test Scores Lower Extremity Functional Score: 8 Goals Goals Goal 1:: LTG: Pt. to be I with HEP. Goal Time Frame: 4-6 Weeks Goal Progress: Progressing Goal 2:: STG: Pt. to be able to complete sit to stand transfers with FWW with SOTERO without LOB Goal Time Frame: 2-4 Weeks Goal Progress: Not Progressing Goal 3:: STG: Pt. to complete all bed mobility Sotero with use of railings. Goal Time Frame: 2-4 Weeks Goal Progress: Progressing Goal 4:: LTG: Pt. to be able to ambulate 250' with FWW SOTERO with FWW allowing for safe mobility in gym and community. Goal Time Frame: 6-8 Weeks Goal Progress: Not Progressing Goal 5:: LTG: Pt. to ambulate with FWW for 100' with FWW with good foot clearance allowing for increased functional mobility. Goal Time Frame: 4-6 Weeks Goal Progress: Not Progressing Anticipated Interventions Anticipated Interventions Patient/Client Instruction: Educate patient on: Condition, Plan of Care, Risk Factors and Benefits of Fitness Program For the Purpose of:: To foster healthy habits, To improve decision making, To facilitate caregiver knowledge, To improve self management, To prevent re-injury and To improve ability to perform tasks related to life management Therapeutic Exercise to Include: Strength training, Power training, Endurance training, Balance training, Body mechanics, Postural training, Flexibilty training, Gait and locomotor training, Passive ROM and Active ROM For the Purpose of:: To increase ROM, To improve nutrient delivery to tissue, To increase oxygenation perfusion, To improve muscle performance and motor function, To improve ability to perform ADL's, To increase tolerance to activity/condition/position, To improve performance and independence with ADL's, To decrease level of supervision to perform tasks, To improve ability of physical actions for home/community/work/leisure, To improve gait and locomotor functions, To improve health of tissue, To decrease soft tissue restriction and To increase flexibility/ROM Re-Evaluation Ending Re-evaluation ending: Please do not hesitate to contact me at [phone] by phone or if you have questions or concerns regarding this new plan of care! Sincerely, Srinivasan Gonsales DPT
--- NOTE | 2024-09-06 17:42 | HP.PTREVAL ---
Re-Evaluation Intro: Dr. Luis Carlos Gallardo MD, It has been my pleasure to treat DANNY AQUINO over the last 10 visits for debility, bacteremia, recurrent UTI and history of spinal cord injury. Please see the progress note below for an update on the physical therapy plan of care! Subjective Subjective: Pt. reports overall doing well. Son reports he is progressing, but slowly. Objective Objective/Function: MMT: LLE: knee: ext 28.6#(mid range), flex 18.5#; ankle: DF 22.0#, PF 27.5#; hip: flexon 2-/5 RLE: knee ext 25.6# (mid range), flex 20.8#; ankle: DF 23.4#, PF 27.7#: hip flex 2-/5 30sec sit to stand: 8 with use of UEs from 22 chair. Pt. required heavy use of UEs to complete. TU.25sec with use of FWW. sit to stand : Pt. can come with use of BUEs, unable to complete with out use of UEs. Pt. is SOTERO with use of FWW and chair with HR. Pt. ambulated with min to CGA with FWW. 131feet. Pt. has a general flexed posture with heavy use of UEs. Pt. did have adequate foot clearnce, but just barely to advance his LEs. I would like to see better bed mobility, BLE strength, and improved distances with walking to increase household ambulation, with potential for community ambulation. Plan Plan Plan: Cont. with PT with focus on gait progress, transfer training to increase ability to rise from chair. Bed mobility to increase I with his task. Balance/Gait/Functional tests Balance/Special Test Scores Lower Extremity Functional Score: 8 Goals Goals Goal 1:: LTG: Pt. to be I with HEP. Goal Time Frame: 4-6 Weeks Goal Progress: Progressing Goal 2:: STG: Pt. to be able to complete sit to stand transfers with FWW with SOTERO without LOB Goal Time Frame: 2-4 Weeks Goal Progress: Progressing Goal 3:: STG: Pt. to complete all bed mobility Sotero with use of railings. Goal Time Frame: 2-4 Weeks Goal Progress: Progressing Goal 4:: LTG: Pt. to be able to ambulate 250' with FWW SOTERO with FWW allowing for safe mobility in gym and community. Goal Time Frame: 6-8 Weeks Goal Progress: Progressing Goal 5:: LTG: Pt. to ambulate with FWW for 100' with FWW with good foot clearance allowing for increased functional mobility. Goal Time Frame: 4-6 Weeks Goal Progress: Goal Met Anticipated Interventions Anticipated Interventions Patient/Client Instruction: Educate patient on: Condition, Plan of Care, Risk Factors and Benefits of Fitness Program For the Purpose of:: To foster healthy habits, To improve decision making, To facilitate caregiver knowledge, To improve self management, To prevent re-injury and To improve ability to perform tasks related to life management Therapeutic Exercise to Include: Strength training, Power training, Endurance training, Balance training, Body mechanics, Postural training, Flexibilty training, Gait and locomotor training, Passive ROM and Active ROM For the Purpose of:: To increase ROM, To improve nutrient delivery to tissue, To increase oxygenation perfusion, To improve muscle performance and motor function, To improve ability to perform ADL's, To increase tolerance to activity/condition/position, To improve performance and independence with ADL's, To decrease level of supervision to perform tasks, To improve ability of physical actions for home/community/work/leisure, To improve gait and locomotor functions, To improve health of tissue, To decrease soft tissue restriction and To increase flexibility/ROM Re-Evaluation Ending Re-evaluation ending: Please do not hesitate to contact me at [phone] by phone or if you have questions or concerns regarding this new plan of care! Sincerely, Srinivasan Gonsales DPT
--- NOTE | 2024-09-13 09:17 | HP.SPREEV_ITS ---
Visit History Visit Info Date of Eval: 06/13/24 Today is Visit #: 1 Patient's Approved Number of Visits: 10 Insurance Date Limit: 03/14/25 Knockout Worker: DAVY Nixon Attending Doctor: Referring Doctor: Reason for Referral: DEBILITY RX HERE Medical Diagnosis: Global Aphasia Date of Onset of Diagnosis: June 2021 Previous speech therapy: Yes Other Relevant Medical History/Diagnoses/Surgery: IGNACIO AQUINO is a 79 year old male who presents to [facility] following d/c from the hospital after chronic UTIs. He was accompanied to the evaluation with his , Nuzhat, who help supplement history when Ignacio had difficulty with communicating. Ignacio has participated in speech therapy to target his receptive and expressive aphasia in the past and was recently treated at this facility. He was d/c in February of 2024 when he was admitted to the hospital. 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 He participated in speech therapy at this facility from June 2021 through February 2024. In February, discharge from services was being discussed due to plateau in progress. While on TCU for this recent admission (February 2024-May 2024), Pt trialed a high tech AAC device. He would like to continue with speech therapy to continue with an application for the device, practice using it, along with targeting receptive/expressive language d/t recent change in medical status. Smoking Status: Never smoker Diagnosis Diagnosis: Global Aphasia Pain Is pain an issue with your current prescribed condition?: No Personal Preferred language: [place] Patient Allergies Allergies Allergies: Allergies ceftriaxone Allergy (Verified 08/08/24 14:51) Rash ciprofloxacin (From Cipro) Allergy (Verified 08/08/24 14:51) Hives sulfamethoxazole (From Bactrim) Allergy (Verified 08/08/24 14:51) PT UNSURE OF REACTION trimethoprim (From Bactrim) Allergy (Verified 08/08/24 14:51) PT UNSURE OF REACTION Previous/Current Goals Goals 1-5 Previous Goal #1: Ignacio will answer complex y/n questions with 65% acc given min verbal and logical cues across 3 measured sessions. Goal 1 Status: GOAL NOT TARGETED D/T FOCUS ON GOAL 4 -- WILL CONTINUE WITH THIS GOAL Previous Goal #2: Ignacio will describe visual scenes using 3 or more sentences given only min verbal and phonemic cues. Goal 2 Status: GOAL PROGRESSING: Ignacio organized a group of four pictures into the correct order with 100% acc. He described the picture scenes with mod verbal and semantic cues. He often used 5-10 sentences but they were mostly empty speech or starting and restarting. Previous Goal #3: Ignacio will repeat 3-4 syllable words/phrases after verbal presentation of the target with 70% acc given min verbal cues. Goal 3 Status: GOAL NOT TARGETED D/T FOCUS ON GOAL 4 -- WILL CONTINUE WITH THIS GOAL Previous Goal #4: Ignacio will generate 3 sentences when given a target verb following WHO+verb+WHAT structure with 70% acc given min verbal and semantic cues across 3 consecutively measured sessions. Goal 4 Status: GOAL PROGRESSING: - Initially started task with prewritten notecards where Ignacio placed them in the correct WHO or WHAT column with 100% acc with only supervision. He read through them with min errors. He also placed WHERE, WHEN, WHY prewritten cards with 33% acc independently. - In subsequent sessions, Ignacio has been coming up with his own sentences with between 50 and 75% acc given mod cues and increasing to 80% with max cues. At times, Sharath gets stuck on one topic (e.g., baking) when creating his sentences and benefits from min-mod verbal and semantic cues to think of other situations where the target verb could be used. Previous Goal #5: When provided with access to a communication device, Ignacio will independently utilize their device to supplement verbal communication via commenting, making exclamations, asking questions, making requests, and/or answering questions 10x times during a 60-minute speech therapy session across during 3 sessions. Goal 5 Status: GOAL MET: Ignacio has received his communication device and will continue to work on incorporating it at home as needed to help augment his verbal communication. (QAB) - Quick Aphasia Battery QAB QAB Administered: Yes Score: The Quick Aphasia Battery (QAB) is a multidimensional assessment that utilizes eight subtests that explore a variety of language domains, complexity levels, and quantifies strengths/weaknesses in those core language skills. The assessment describes language deficits characteristic of receptive and expressive aphasias. The test assesses the patient's skills in verbal expression, repetition, auditory comprehension, and fluency. The severity rating for the QAB is as follows: 0.00-4.99 Severe; 5.00-7.49 Moderate; 7.50-8.89 Mild; 8.90-10.00 WNL. Date: 06/13/24 Word comprehension Score: 10.00 Sentence comprehension Score: 0 Word finding Score: 5.00 Grammatical construction Score: 7.13 Speech motor programming Score: 7.50 Repetition Score: 2.92 Reading Score: 9.17 QAB Overall Score Score: 5.53 QAB Subtest Analysis Comment: - During connected conversational speech tasks, Pt having difficulty with thought organization to explain how he met his . He benefited from specific WH questions to help orient his thoughts. Even so, his responses were shorter, between 5-7 words. He appeared to benefit from a stimulus card picture being presented to describe what was happening in the picture (only one action, not a scene). - During sentence comprehension tasks, Ignacio was tasked to respond yes/no to questions. He did well with simple questions with simple syntax (e.g., are you a man?), however when the questions became more syntactically complex (e.g., if you're about to leave, have you left yet?) Pt observed trying to comprehend and asked for items to be repeated, however he would often respond incorrectly or on one occasion he stated I don't quite research worker encyclopedia that. - During the repetition task, Pt was asked to repeat the word the ST presented. On CVC words, he did well with repetition, however when the word was a 3+ syllable word, Pt reporting he was not even able to attempt to repeat d/t difficulty. When phrases were presented, he had coarticulation errors (e.g., The sun [place] in the [place] vs. [place] sun rises in the [place]) along with repeating only the second half of the phrase (e.g., where we are going vs. The ambitious golf cart assembler discovered where we'd be going). - He has strengths in picture naming, reading words and sentences out loud (did not test comprehension), word comprehension (i.e., was shown a group of pictures and asked to show me the...), following basic 1 step commands, and being oriented. Reference: Neuro-QoL instrument HDQLIFE - Speech Difficulties In the past 7 days. It was difficult for other people to understand me.: Sometimes Is was difficult to speak clearly?: Often In the past 7 days.. How often did you limit your social activites because you had difficulty speaking?: Sometimes In the past 7 days... I had trouble speaking.: Quite a bit I was frustrated by my speech difficulties.: Very much How much DIFFICULTY do you have... ...saying what you want to say?: A lot of difficulty Score HDQLIFE Speech Difficulties Raw Score: 23 HDQLIFE Speech Difficulties T - Score: 62 Radiation Oncology Patient Plan Plan Plan: Will recommend Pt for weekly outpatient speech therapy intervention address moderate global aphasia deficits. Pt would benefit from circumlocution training, training with a high tech AAC device, comprehension of moderately complex yes/no questions, repetition, and picture scene description. Without skilled intervention Pt is at risk for communicating basic, medical, emergent, social wants & needs, and interacting with family/friends at home, during social interactions, and at work. Recommendations Treatment Warranted: Yes Treatment Warranted: Receptive/ Expressive Language Progress Prognosis: Good Frequency Frequency: 1x/Week Additional (Frequency): 60 min. sessions Duration: 6 Months Patient/Family Goal Patient/Family Goal: Working on overall verbal fluency and understanding of moderately complex questions/statements Goals that are Established Determination:: Goals will be added/modified as deemed necessary and appropriate. Therapy will be discontinued when results of re-evaluation indicate therapy is no longer needed or lack of progress has been documented. Goal #1-5 Goal #1: Ignacio will answer complex y/n questions with 65% acc given min verbal and logical cues across 3 measured sessions. Goal #2: Ignacio will describe visual scenes using 3 or more sentences given only min verbal and phonemic cues. Goal #3: Ignacio will repeat 3-4 syllable words/phrases after verbal presentation of the target with 70% acc given min verbal cues. Goal #4: Ignacio will generate 3 sentences when given a target verb following WHO+verb+WHAT structure with 70% acc given min verbal and semantic cues across 3 consecutively measured sessions. Goal #5: . Education Patient has Indicated that the Following Identified Educational Needs: None The Patient has indicated that they have no educational or learning abilities that may effect their care.: Yes Patient Instruction Patient Education: Diagnosis, Treatment Plan and Goals Person Taught: Patient and Family Teaching Method: Discussion and Demonstration Response to teaching: Return Demonstration and Verbalize Understanding
--- NOTE | 2024-10-03 16:02 | HP.OTREVAL ---
Re-Evaluation Intro: Dr. Luis Carlos Gallardo MD, It has been my pleasure to treat DANNY AQUINO over the last 10 visits for debility, bacteremia, recurrent UTI, spinal cord injury. Please see the progress note below for an update on the occupational therapy plan of care! Subjective Subjective: arrives 5 min late doing well pt having pain in L bicep region at beginning of session from picking up water buckets x2 days ago Objective Objective/Function: R 65# L 45# R lateral pinch 8 L lateral pinch 9 R tripod 5# L tripod 8# shoulder flexion L 6.6# R shoulder flexion 10.1# tricep L 10.8# R 13.8# percentage of improvement down due to not being here for few weeks needing to decrease weight and reps Plan Plan Frequency: 1x/Week Duration: 4 Weeks Visits in this POC: (Insurance $[id number]) 10 weeks (1x week) Plan: CONT. POC 4 weeks (1x week) Goals Goals Patient Goals: Regain Strength, Use Hand/Wrist/Arm Normally Again and Resume Former Household Responsibilities (Cooking,Cleaning,Yard, etc.) Goal:: pt will improve B shoulder strength by 5# or more in order to maximize I in day to day functional tasks ( progressing) pt will improve B bicep strength by 5# or more in order to maximize I in day to day functional tasks pt will improve B tricep strength by 5# or more in order to maximize I in day to day functional tasks pt will improve B certified physician assistant strength by 5# or more in order to maximize I in day to day functional tasks ( progressing) pt will improve postural muscle strength such as traps, serratus and core as evident by ability to sit straight up in wheelchair for 1+ hour duration ( progressing) Goal:: pt will decrease R hand swelling by 1 cm (currently 23 cm) in order to decrease swelling and improve functional use of BUEs 22cm (goal met) Goal:: pt will improve quick dash score by 5 points or more (29.54) in order to improve functional use of BUEs Goal:: Pt/Caregiver will demonstrate 100% accuracy in UB strengthening/ aerobic capacity program by discharge Anticipated Interventions Anticipated Interventions Anticipated Interventions: Strengthening, Joint Protection/Energy Conservation, Education re Diagnosis, Caregiver Training and Home Program Re-Evaluation Ending Re-evaluation ending: Please do not hesitate to contact me at [phone] by phone or if you have questions or concerns regarding this new plan of care! Sincerely, April Matias
--- NOTE | 2024-11-23 14:38 | OTREVAL_ITS ---
Re-Evaluation Intro: Dr. Luis Carlos Gallardo MD, It has been my pleasure to treat DANNY AQUINO over the last 16 visits for debility, bacteremia, recurrent UTI, spinal cord injury. Please see the progress note below for an update on the occupational therapy plan of care! Subjective Subjective: This OT sees pt after seeing SANDING MACHINE OPERATOR OR TENDER for treatment in order to update pts POC and progress goals. (visit number remains 16) Objective Objective/Function: shoulder flexion: L 6.9# R 10.5# bicep: L 17.9# R 25.1# tricep: L 12.6# R 10# software deployment engineer: L 70# R 60 lateral pinch: L 12# R 10# tripod pinch: L 10# R 8# R hand 22 cm circumference Plan Plan Frequency: 1x/Week Duration: 4 Weeks Visits in this POC: (Insurance $[id number]) 10 weeks (1x week) Plan: update complete 11/23/24 pt is making progress toward goals increased strength in software deployment engineer as well as pinch lateral and tripod improved shoulder as well as tricep strength, pt swelling in R hand non equal to that of L hand. continue POC at this time for ongoing strengthening to reach max potential and gear toward focus on HEP to transition to home program. POC 1x a week for 4 weeks then discharge Goals Goals Patient Goals: Regain Strength, Use Hand/Wrist/Arm Normally Again and Resume Former Household Responsibilities (Cooking,Cleaning,Yard, etc.) Goal:: pt will improve B shoulder strength by 5# or more in order to maximize I in day to day functional tasks ( progressing) pt will improve B bicep strength by 5# or more in order to maximize I in day to day functional tasks pt will improve B tricep strength by 5# or more in order to maximize I in day to day functional tasks pt will improve B software deployment engineer strength by 5# or more in order to maximize I in day to day functional tasks ( progressing) pt will improve postural muscle strength such as traps, serratus and core as evident by ability to sit straight up in wheelchair for 1+ hour duration ( progressing) Goal:: pt will decrease R hand swelling by 1 cm (currently 23 cm) in order to decrease swelling and improve functional use of BUEs 22cm (goal met) Goal:: pt will improve quick dash score by 5 points or more (29.54) in order to improve functional use of BUEs Goal:: Pt/Caregiver will demonstrate 100% accuracy in UB strengthening/ aerobic capacity program by discharge Anticipated Interventions Anticipated Interventions Anticipated Interventions: Strengthening, Joint Protection/Energy Conservation, Education re Diagnosis, Caregiver Training and Home Program Re-Evaluation Ending Re-evaluation ending: Please do not hesitate to contact me at [phone] by phone or if you have questions or concerns regarding this new plan of care! Sincerely, April Matias
--- NOTE | 2024-11-28 14:00 | HP.SPREEV_ITS ---
Visit History Visit Info Date of Eval: 06/13/24 Today is Visit #: 1 Patient's Approved Number of Visits: 10 Insurance Date Limit: 03/14/25 Sales [employer] Leasing Consultant: DAVY Nixon Attending Doctor: Referring Doctor: Reason for Referral: DEBILITY RX HERE Medical Diagnosis: Global Aphasia Date of Onset of Diagnosis: June 2021 Previous speech therapy: Yes Other Relevant Medical History/Diagnoses/Surgery: DANNY AQUINO is a 79 year old male who presents to [facility] following d/c from the hospital after chronic UTIs. He was accompanied to the evaluation with his , Nuzhat, who help supplement history when Danny had difficulty with communicating. Danny has participated in speech therapy to target his receptive and expressive aphasia in the past and was recently treated at this facility. He was d/c in February of 2024 when he was admitted to the hospital. 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 He participated in speech therapy at this facility from June 2021 through February 2024. In February, discharge from services was being discussed due to plateau in progress. While on TCU for this recent admission (February 2024-May 2024), Pt trialed a high tech AAC device. He would like to continue with speech therapy to continue with an application for the device, practice using it, along with targeting receptive/expressive language d/t recent change in medical status. Smoking Status: Never smoker Diagnosis Diagnosis: Global Aphasia Pain Is pain an issue with your current prescribed condition?: No Personal Preferred language: [place] Patient Allergies Allergies Allergies: Allergies ceftriaxone Allergy (Verified 11/13/24 15:53) Rash ciprofloxacin (From Cipro) Allergy (Verified 11/13/24 15:53) Hives sulfamethoxazole (From Bactrim) Allergy (Verified 11/13/24 15:53) PT UNSURE OF REACTION trimethoprim (From Bactrim) Allergy (Verified 11/13/24 15:53) PT UNSURE OF REACTION Previous/Current Goals Goals 1-5 Previous Goal #1: Danny will answer complex y/n questions with 65% acc given min verbal and logical cues across 3 measured sessions. Goal 1 Status: GOAL PROGRESSIN11/09/24: Verbally presented Danny with temporal/conditional yes/no questions which he answered with 20% acc on the first presentation of the question. He improved to 40% with one verbal repetition of the question. He further improved to 70% acc when the question was written down for him to read and repeated. 10/02/24: Verbally presented Danny with temporal/conditional yes/no questions which he answered with 0% acc on the first presentation of the question. He improved to 25% with one verbal repetition of the question. He further improved to 75% acc when the question was written down for him to read. Previous Goal #2: Danny will describe visual scenes using 3 or more sentences given only min verbal and phonemic cues. Goal 2 Status: GOAL PROGRESSIN11/23/24: Pt engaging in naming and describing 7 items with min to mod verbal cuing during [employer] game. At beginning of session, Pt needed mod to max verbal cues in order to describe item on ST's headband. Towards end of session, his word finding ability improve where he only required intermittent min cues. 10/23/24: Pt engaging in naming and describing items with moderate verbal cuing. Pt provided education on compensatory strategies for word finding. 09/28/24: Danny organized a 4 picture sequence and then described what was occurring in the story across four occasions. He used 3-4 sentences each time and used between 2-4 verbs in each description. He benefited from ST's assistance for noun labels intermittently. 09/19/24: Trialed describing a picture scene following VNEST. Pt verbalizing 5 sentences with max cues and sentence modeling which he then repeated. Previous Goal #3: Danny will repeat 3-4 syllable words/phrases after verbal presentation of the target with 70% acc given min verbal cues. Goal 3 Status: GOAL PROGRESSIN11/28/24: Danny repeated with only one verbal presentation with 20% acc and benefited from 2+ repetition to improve to 46% acc, ST slowing down presentation to improve to 66% acc, and ST writing down the target to improve to 100% acc. Pt perseverating on the word discovery every time a target that started with d was trialed. 11/09/24: Danny repeated with only one verbal presentation with 38% acc and benef ited from 2+ repetitions to improve to 57% acc, ST slowing down presentation to improve to 66% acc, and ST writing down the target to improve to 95% acc. 10/16/24: Danny repeated with only one verbal presentation with 15% acc and benefited from 2+ repetitions to improve to 35% acc, ST slowing down presentation to improve to 55% acc, and ST writing down the target to improve to 95% acc. Previous Goal #4: Danny will generate 3 sentences when given a target verb following WHO+verb+WHAT structure with 70% acc given min verbal and semantic cues across 3 consecutively measured sessions. Goal 4 Status: GOAL PROGRESSIN11/28/24: Trialed the verb OPEN with Danny making his own sentences with an overall 66% acc with extended processing time and mod-max cues and increasing to 100% with max cues. 11/02/24: Trialed the verb TAKE with Danny making his own sentences with an overall 50% (3/6) acc with extended processing time and mod-max cues and incr easing to 100% with max cues. 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 Pt needing extended wait time and verbal encouragement. 10/09/24: Trialed the verb BUILD with Danny making his own sentences with an overall 66% (4/6) acc with extended processing time and mod-max cues and increasing to 100% with max cues. 09/19/24: Trialed the verb LOVE with Danny making his own sentences with an overall 86% (5/6) acc with extended processing time and mod-max cues and increasing to 100% with max cues. Previous Goal #5: . (QAB) - Quick Aphasia Battery QAB QAB Administered: Yes Score: The Quick Aphasia Battery (QAB) is a multidimensional assessment that utilizes eight subtests that explore a variety of language domains, complexity levels, and quantifies strengths/weaknesses in those core language skills. The assessment describes language deficits characteristic of receptive and expressive aphasias. The test assesses the patient's skills in verbal expression, repetition, auditory comprehension, and fluency. The severity rating for the QAB is as follows: 0.00-4.99 Severe; 5.00-7.49 Moderate; 7.50-8.89 Mild; 8.90-10.00 WNL. Date: 06/13/24 Word comprehension Score: 10.00 Sentence comprehension Score: 0 Word finding Score: 5.00 Grammatical construction Score: 7.13 Speech motor programming Score: 7.50 Repetition Score: 2.92 Reading Score: 9.17 QAB Overall Score Score: 5.53 QAB Subtest Analysis Comment: - During connected conversational speech tasks, Pt having difficulty with thought organization to explain how he met his . He benefited from specific WH questions to help orient his thoughts. Even so, his responses were shorter, between 5-7 words. He appeared to benefit from a stimulus card picture being presented to describe what was happening in the picture (only one action, not a scene). - During sentence comprehension tasks, Danny was tasked to respond yes/no to questions. He did well with simple questions with simple syntax (e.g., are you a man?), however when the questions became more syntactically complex (e.g., if you're about to leave, have you left yet?) Pt observed trying to comprehend and asked for items to be repeated, however he would often respond incorrectly or on one occasion he stated I don't quite keyliner that. - During the repetition task, Pt was asked to repeat the word the ST presented. On CVC words, he did well with repetition, however when the word was a 3+ syllable word, Pt reporting he was not even able to attempt to repeat d/t difficulty. When phrases were presented, he had coarticulation errors (e.g., [place] vs. [place]) along with repeating only the second half of the phrase (e.g., where we are going vs. The ambitious lean specialist discovered where we'd be going). - He has strengths in picture naming, reading words and sentences out loud (did not test comprehension), word comprehension (i.e., was shown a group of pictures and asked to show me the...), following basic 1 step commands, and being oriented. Reference: Neuro-QoL instrument HDQLIFE - Speech Difficulties In the past 7 days. It was difficult for other people to understand me.: Sometimes Is was difficult to speak clearly?: Often In the past 7 days.. How often did you limit your social activites because you had difficulty speaking?: Sometimes In the past 7 days... I had trouble speaking.: Quite a bit I was frustrated by my speech difficulties.: Very much How much DIFFICULTY do you have... ...saying what you want to say?: A lot of difficulty Score HDQLIFE Speech Difficulties Raw Score: 23 HDQLIFE Speech Difficulties T - Score: 62 Radiation Oncology Patient Plan Plan Plan: Will recommend Pt for weekly outpatient speech therapy intervention address moderate global aphasia deficits. Pt would benefit from circumlocution training, training with a high tech AAC device, comprehension of moderately complex yes/no questions, repetition, and picture scene description. Without skilled intervention Pt is at risk for communicating basic, medical, emergent, social wants & needs, and interacting with family/friends at home, during social interactions, and at work. Recommendations Treatment Warranted: Yes Treatment Warranted: Receptive/ Expressive Language Progress Prognosis: Good Frequency Frequency: 1x/Week Additional (Frequency): 60 min. sessions Duration: 6 Months Patient/Family Goal Patient/Family Goal: Working on overall verbal fluency and understanding of moderately complex questions/statements Goals that are Established Determination:: Goals will be added/modified as deemed necessary and appropriate. Therapy will be discontinued when results of re-evaluation indicate therapy is no longer needed or lack of progress has been documented. Goal #1-5 Goal #1: Danny will answer complex y/n questions with 65% acc given min verbal and logical cues across 3 measured sessions. Goal #2: Danny will describe visual scenes using 3 or more sentences given only min verbal and phonemic cues. Goal #3: Danny will repeat 3-4 syllable words/phrases after only one verbal presentation of the target with 65% acc given min verbal cues. Goal #4: Danny will generate 3 sentences when given a target verb following WHO+verb+WHAT structure with 5/6 acc given only min verbal and semantic cues across 3 consecutively measured sessions. Goal #5: . Education Patient has Indicated that the Following Identified Educational Needs: None The Patient has indicated that they have no educational or learning abilities that may effect their care.: Yes Patient Instruction Patient Education: Diagnosis, Treatment Plan and Goals Person Taught: Patient and Family Teaching Method: Discussion and Demonstration Response to teaching: Return Demonstration and Verbalize Understanding
== END 2024-12-27 19:00 | disposition home or self-care (01) ==
LOC: PT 17:00
PROVIDERS: PCP Preventive Medicine Occupational Medicine; Referring Provider Family Medicine Geriatric Medicine; Visit Provider Family Medicine Geriatric Medicine
DX: R53.81 Other malaise (principal); R78.81 Bacteremia; Z87.440 Personal history of urinary (tract) infections; Z87.828 Personal history of other (healed) physical injury and trauma; R47.01 Aphasia
CPT/HCPCS: 92507; 96105; 97110; 97116; 97161; 97166; 97530